=== PATIENT | male | born 1960 | race African-American/Black ===

== ENCOUNTER 2017-04-06 16:27 | Inpatient (IN) | payer MEDICAID ==
[~2017-04-06] VITALS: Ht 172.7 cm; Wt 94.3 kg
[2017-04-06] VITALS (7 sets, daily range): BP systolic 128–178; BP diastolic 83–96
[~2017-04-06 16:27] MED LIST: ABILIFY10 MG ORAL; BENADRYL25 MG ORAL; CARISOPRODOL350 MG ORAL; CARVEDILOL25 MG ORAL; DIOVAN160 MG ORAL; HYDROCODON-ACE1 EA13 ORAL; ISOSORBIDE MONO30 M1 PO; LISINOPRIL20 MG ORAL; LORATADINE10 M2 PO; OMEPRAZOLE20 M3 ORAL; RENAGEL400 MG ORAL; WARFARIN SODIUM5 MG ORAL; XANAX2 MG ORAL; ZOCOR20 M1 ORAL; ZOFRAN4 M3 ORAL
[2017-04-06] MEDS ORDERED: Albuterol ud Inhalation HHN ONE (16:30)
--- NOTE | 2017-04-06 16:40 | Emergency Room Report ---
History of Present Illness General Chief Complaint: Dyspnea/Respdistress Source: Patient Present Illness HPI 57YOM With 2 days of generalized body aches, cough with productive sputum, and fever and chills Missed dialysis yesterday because he said he changed his address Allergies: Coded Allergies: No Known Allergies (Unverified , 10/24/15) Patient History Past Medical History: renal disease, dialysis Past Surgical History: none Pertinent Family History: none Social History: Denies: smoking, alcohol use, drug use Immunizations: UTD Reviewed Nursing Documentation: PMH: Agreed, PSxH: Agreed Nursing Documentation-PMH Hx Cardiac Problems: Yes Hx Hypertension: Yes Hx Asthma: Yes Hx COPD: Yes Hx Diabetes: Yes Hx Cancer: No Hx Gastrointestinal Problems: Yes - Gall bladder stones Hx Dialysis: Yes Hx Neurological Problems: No Hx Seizures: Yes Review of Systems All Other Systems: negative except mentioned in HPI Physical Exam Vital Signs Date Time Temp Pulse Resp B/P (MAP) Pulse Ox O2 Delivery O2 Flow Rate FiO2 04/06/17 16:09 99.1 98 20 170/100 99 Non-Rebreather 15.0 Sp02 EP Interpretation: reviewed, normal General Appearance: normal inspection, well appearing, no apparent distress, alert, GCS 15, non-toxic Head: normocephalic, atraumatic Eyes: bilateral eye PERRL, bilateral eye EOMI ENT: normal ENT inspection, hearing grossly normal, normal pharynx, no angioedema, normal voice, TMs + canals normal, uvula midline, moist mucus membranes Neck: normal inspection, full range of motion, supple, thyroid normal, no meningismus, no bony tend Respiratory: normal inspection, lungs clear, normal breath sounds, no rhonchi, no respiratory distress, no retraction, no accessory muscle use, speaking full sentences, wheezing Cardiovascular #1: regular rate, rhythm, no edema, no JVD, normal capillary refill Gastrointestinal: normal inspection, normal bowel sounds, non tender, soft, no mass, no peritonitis, non-distended, no guarding, no hernia, no pulsatile mass Genitourinary: no CVA tenderness Musculoskeletal: normal inspection, back normal, normal range of motion, no calf tenderness, pelvis stable, India's Sign negative, other - Left arm: patent fistual with palpable thrill Neurologic: normal inspection, alert, oriented x3, responsive, chief deputy clerk/bailiff III-XII nml as tested, motor strength/tone normal, cerebellar normal, normal gait, speech normal Psychiatric: normal inspection, judgement/insight normal, mood/affect normal, no suicidal/homicidal ideation, no delusions Skin: normal inspection, normal color, no rash Lymphatic: normal inspection, no adenopathy Medical Decision Making Diagnostic Impression: Primary Impression: Dyspnea Qualified Codes: R06.00 - Dyspnea, unspecified Additional Impressions: CKD (chronic kidney disease) Qualified Codes: N18.6 - End stage renal disease; Z99.2 - Dependence on renal dialysis URI (upper respiratory infection) Qualified Codes: J06.9 - Acute upper respiratory infection, unspecified; B97.89 - Other viral agents as the cause of diseases classified elsewhere Acute bronchitis Qualified Codes: J20.9 - Acute bronchitis, unspecified ER Course 51-year-old male with wheezing on exam, myalgias, and productive cough Patient high-risk for flu given renal disease and dialysis Was given Tamiflu oral in the ER Influenza swab result still pending Labs significant for no leukocytosis, stable H&H, creatinine is 12 however potassium is normal. Elevated BNP in setting of CKD Troponin also elevated, likely d/t CKD and not ischemia ECG does show isolated TWI in V6 with depression - will need serial Trop by hospitalist CXR no obvious PNA when compared to previous Likely Bronchitis, needs dialysis but not urgently. Previous serumCr was ~12 as well Endorsed to Dr Monroe as prior admitting physician Tele admit, 810pm EKG Diagnostic Results Rate: tachycardiac Rhythm: NSR ST Segments: other - Isolated TWI and ST depression in V6 Rhythm Strip Diag. Results EP Interpretation: yes Rate: 104 Rhythm: NSR, no PVC's Chest X-Ray Diagnostic Results Chest X-Ray Diagnostic Results : Chest X-Ray Ordered: Yes # of Views/Limited/Complete: 1 View Indication: Shortness of Breath EP Interpretation: Yes Interpretation: no consolidation, no effusion, no pneumothorax, no acute cardiopulmonary disease Last Vital Signs Date Time Temp Pulse Resp B/P (MAP) Pulse Ox O2 Delivery O2 Flow Rate FiO2 04/06/17 16:09 99.1 98 20 170/100 99 Non-Rebreather 15.0 Status: improved Disposition: ADMITTED INPATIENT Condition: Serious RAMAKRISHNA GOOD M.D. Apr 06, 2017 16:40
[2017-04-06] MEDS: Oseltamivir 75mg cap ORAL SCH ×4 (16:48→19:34)
[2017-04-06] MEDS ORDERED: Tylenol #3 tab (300mg/30mg) ORAL ONE (17:00)
[2017-04-06] MEDS ORDERED: FOLIC ACID1 MG ORAL (17:10)
[2017-04-06] MEDS ORDERED: MIRALAX17 G2 ORAL (17:10)
[2017-04-06] MEDS ORDERED: ASPIR 8181 MG ORAL (17:10)
[2017-04-06] MEDS ORDERED: ALBUTEROL2.5 MG/3 M INH (17:10)
[2017-04-06] MEDS ORDERED: MULTIVITAMINS1 EAC2 ORAL (17:10)
[2017-04-06] MEDS ORDERED: SPIRIVA18 MCG INH (17:10)
[2017-04-06] MEDS ORDERED: BUPROPION HCL75 MG PO (17:10)
[2017-04-06 17:23] LABS: BASOPHILS % (AUTO) 1.3 % (0.0-2.0); EOSINOPHILS % (AUTO) 6.3 % (0.0-3.0); HEMATOCRIT 32.5 % (42.0-52.0); HEMOGLOBIN 9.7 G/DL (14.2-18.0); LYMPHOCYTES % (AUTO) 16.4 % (20.0-45.0); MEAN CORPUSCULAR VOLUME 96 FL (80-99); MONOCYTES % (AUTO) 10.5 % (1.0-10.0); NEUTROPHILS % (AUTO) 65.6 % (45.0-75.0); PLATELET COUNT 143 K/UL (150-450); RED BLOOD COUNT 3.38 M/UL (4.70-6.10); RED CELL DISTRIBUTION WIDTH 17.8 % (11.6-14.8); WHITE BLOOD COUNT 8.4 K/UL (4.8-10.8)
[2017-04-06 17:26] LABS: ANION GAP 12 mmol/L (5-15); BLOOD UREA NITROGEN 52 mg/dL (7-18); CALCIUM 7.8 MG/DL (8.5-10.1); CARBON DIOXIDE 24 MMOL/L (21-32); CHLORIDE 105 MMOL/L (98-107); CREATININE 12.5 MG/DL (0.55-1.30); POTASSIUM 4.9 MMOL/L (3.5-5.1); SODIUM 141 MMOL/L (136-145)
[2017-04-06 17:39] LABS: ALANINE AMINOTRANSFERASE 29 U/L (12-78); ALBUMIN 3.6 G/DL (3.4-5.0); ALBUMIN/GLOBULIN RATIO 0.9 (1.0-2.7); ALKALINE PHOSPHATASE 214 U/L (46-116); ASPARTATE AMINO TRANSFERASE 25 U/L (15-37); BILIRUBIN,TOTAL 0.5 MG/DL (0.2-1.0); CKMB 3.9 NG/ML (0.0-3.6); CREATINE KINASE 158 U/L (26-308)
[2017-04-06] MEDS ORDERED: AMLODIPINE BESY10 MG ORAL (21:53)
[2017-04-06] MEDS ORDERED: Albuterol ud Inhalation HHN PRN (22:15)
[2017-04-06] MEDS: Norco 5mg/325mg tab ORAL PRN (22:56)
[2017-04-06] MEDS ORDERED: ALPRAZolam 0.5mg tab ORAL PRN (23:15)
[2017-04-07] VITALS (9 sets, daily range): BP systolic 103–186; BP diastolic 75–122
[2017-04-07 05:38] LABS: BASOPHILS % (AUTO) 1.5 % (0.0-2.0); EOSINOPHILS % (AUTO) 5.6 % (0.0-3.0); HEMATOCRIT 29.3 % (42.0-52.0); HEMOGLOBIN 8.9 G/DL (14.2-18.0); MEAN CORPUSCULAR VOLUME 96 FL (80-99); MONOCYTES % (AUTO) 9.2 % (1.0-10.0); NEUTROPHILS % (AUTO) 70.8 % (45.0-75.0); PLATELET COUNT 123 K/UL (150-450); RED BLOOD COUNT 3.04 M/UL (4.70-6.10)
[2017-04-07 06:05] LABS: ANION GAP 14 mmol/L (5-15); BLOOD UREA NITROGEN 56 mg/dL (7-18); CALCIUM 7.8 MG/DL (8.5-10.1); CARBON DIOXIDE 20 MMOL/L (21-32); CHLORIDE 106 MMOL/L (98-107); CREATININE 13.4 MG/DL (0.55-1.30); POTASSIUM 5.6 MMOL/L (3.5-5.1); SODIUM 140 MMOL/L (136-145)
[2017-04-07] MEDS ORDERED: ALPRAZolam 0.5mg tab ORAL SCH (09:00)
[2017-04-07] MEDS: Carvedilol 25mg Tab ORAL SCH ×2 (09:00→18:04)
--- NOTE | 2017-04-07 09:52 | Diagnostic Imaging Report ---
Indication: Reason For Exam: SOB Technique: One view of the chest Comparison: 10/27/2015 Findings: The heart is enlarged. There is a left chest AICD now present, not evident previously. There is bilateral diffuse interstitial congestion. There is a small right-sided pleural effusion. Other than the AICD, findings are similar to the previous exam Impression: Cardiomegaly Findings compatible with congestive heart failure and small right pleural effusion. Interim AICD placement
[2017-04-07] MEDS: Renagel 400mg cap ORAL SCH ×3 (11:57→18:00)
[2017-04-07] MEDS: ARIPiprazole 10mg tab ORAL SCH (11:58)
[2017-04-07] MEDS: Aspirin EC 81mg tab ORAL SCH (11:58)
[2017-04-07] MEDS: Miralax 17gm pkt ORAL SCH (11:58)
[2017-04-07] MEDS: Heparin 5000 units/ml inj SUBQ SCH ×2 (12:00→20:30)
[2017-04-07] MEDS: Norco 5mg/325mg tab ORAL PRN ×2 (12:07→20:27)
[2017-04-07] MEDS ORDERED: Lidocaine 1% Plain 30 ml INJ ONE (12:38)
--- NOTE | 2017-04-07 13:02 | Consultation ---
Consult Note Consult Note asked to eval patient for dialysis management 57YOM With 2 days of generalized body aches, cough with productive sputum, and fever and chills Missed dialysis yesterday because he said he changed his address Past Medical History: renal disease, dialysis Hx Cardiac Problems: Yes Hx Hypertension: Yes Hx Asthma: Yes Hx COPD: Yes Hx Diabetes: Yes Hx Gastrointestinal Problems: Yes - Gall bladder stones Hx Dialysis: Yes Hx Seizures: Yes Assessment/Plan Dyspnea, Volume overload ESRD on HD , missed dialysis due to transportation issues URI (upper respiratory infection) Acute bronchitis Plan : HD sherry , with UF vial right fistula: in process PATIENT STATED THAT DR HAYES IS 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
--- NOTE | 2017-04-07 13:17 | Cardiac Electrophysiology PN ---
Subjective Subjective [id number] Objective Last 24 Hour Vital Signs Date Time Temp Pulse Resp B/P (MAP) Pulse Ox O2 Delivery O2 Flow Rate FiO2 04/07/17 12:00 98.2 97 19 103/75 85 04/07/17 09:58 88 26 97 Full Face 40 04/07/17 09:46 Nasal Cannula 2.0 28 04/07/17 09:46 94 Nasal Cannula 2.0 28 04/07/17 08:00 98.8 98 24 158/102 95 Bi-pap 40 04/07/17 08:00 90 04/07/17 07:50 96 24 167/108 96 Bi-pap 40 04/07/17 05:08 97 26 99 Full Face 40 04/07/17 04:00 86 20 172/107 94 Bi-pap 40 04/07/17 04:00 111 04/07/17 03:42 97 23 98 Full Face 40 04/07/17 03:00 115 26 162/112 96 Bi-pap 40 04/07/17 02:31 104 24 99 Nasal Cannula 2.0 28 04/07/17 02:30 98 24 97 Nasal Cannula 2.0 28 04/07/17 02:30 98 24 Nasal Cannula 2.0 28 04/07/17 02:10 97.7 123 30 186/122 93 Nasal Cannula 4.0 04/07/17 00:00 118 04/07/17 00:00 99.7 125 24 154/97 97 04/06/17 22:52 92 Nasal Cannula 2.0 28 04/06/17 22:52 Nasal Cannula 2.0 28 04/06/17 22:52 100 24 Nasal Cannula 2.0 28 04/06/17 21:30 98.1 99 21 177/93 90 04/06/17 21:30 98.1 99 21 177/93 90 Nasal Cannula 2.0 04/06/17 20:50 98.5 92 18 152/87 99 Nasal Cannula 2.0 04/06/17 19:50 98.6 94 18 163/87 96 Nasal Cannula 2.0 04/06/17 18:46 99.7 22 170/96 94 Nasal Cannula 2.0 04/06/17 18:01 99.1 04/06/17 17:00 100 22 Nasal Cannula 2.0 04/06/17 17:00 99.1 22 178/96 94 Nasal Cannula 2.0 04/06/17 16:50 100 22 94 Nasal Cannula 2.0 04/06/17 16:36 101 24 85 Room Air 04/06/17 16:32 101 22 Room Air 04/06/17 16:09 99.1 98 20 170/100 99 Non-Rebreather 15.0 Intake and Output 04/06/17 04/07/17 19:00 07:00 Intake Total 0 ml 100 ml Balance 0 ml 100 ml Intake Oral 0 ml 100 ml Laboratory Tests Test 04/06/17 16:53 04/07/17 04:00 White Blood Count 8.4 K/UL (4.8-10.8) 9.0 K/UL (4.8-10.8) Red Blood Count 3.38 M/UL (4.70-6.10) L 3.04 M/UL (4.70-6.10) L Hemoglobin 9.7 G/DL (14.2-18.0) L 8.9 G/DL (14.2-18.0) L Hematocrit 32.5 % (42.0-52.0) L 29.3 % (42.0-52.0) L Mean Corpuscular Volume 96 FL (80-99) 96 FL (80-99) Mean Corpuscular Hemoglobin 28.7 PG (27.0-31.0) 29.2 PG (27.0-31.0) Mean Corpuscular Hemoglobin Concent 29.8 G/DL (32.0-36.0) L 30.4 G/DL (32.0-36.0) L Red Cell Distribution Width 17.8 % (11.6-14.8) H 18.0 % (11.6-14.8) H Platelet Count 143 K/UL (150-450) L 123 K/UL (150-450) L Mean Platelet Volume 6.4 FL (6.5-10.1) L 6.5 FL (6.5-10.1) Neutrophils (%) (Auto) 65.6 % (45.0-75.0) 70.8 % (45.0-75.0) Lymphocytes (%) (Auto) 16.4 % (20.0-45.0) L 13.0 % (20.0-45.0) L Monocytes (%) (Auto) 10.5 % (1.0-10.0) H 9.2 % (1.0-10.0) Eosinophils (%) (Auto) 6.3 % (0.0-3.0) H 5.6 % (0.0-3.0) H Basophils (%) (Auto) 1.3 % (0.0-2.0) 1.5 % (0.0-2.0) Sodium Level 141 MMOL/L (136-145) 140 MMOL/L (136-145) Potassium Level 4.9 MMOL/L (3.5-5.1) 5.6 MMOL/L (3.5-5.1) H Chloride Level 105 MMOL/L (98-107) 106 MMOL/L (98-107) Carbon Dioxide Level 24 MMOL/L (21-32) 20 MMOL/L (21-32) L Anion Gap 12 mmol/L (5-15) 14 mmol/L (5-15) Blood Urea Nitrogen 52 mg/dL (7-18) H 56 mg/dL (7-18) H Creatinine 12.5 MG/DL (0.55-1.30) H 13.4 MG/DL (0.55-1.30) H Estimat Glomerular Filtration Rate 5.1 mL/min (>60) 4.6 mL/min (>60) Glucose Level 114 MG/DL (74-106) H 74 MG/DL (74-106) Calcium Level 7.8 MG/DL (8.5-10.1) L 7.8 MG/DL (8.5-10.1) L Total Bilirubin 0.5 MG/DL (0.2-1.0) Aspartate Amino Transf (AST/SGOT) 25 U/L (15-37) Alanine Aminotransferase (ALT/SGPT) 29 U/L (12-78) Alkaline Phosphatase 214 U/L (46-116) H Total Creatine Kinase 158 U/L (26-308) Creatine Kinase MB 3.9 NG/ML (0.0-3.6) H Creatine Kinase MB Relative Index 2.4 Troponin I 0.196 ng/mL (0.000-0.056) Pro-B-Type Natriuretic Peptide > 63026 pg/mL (0-125) H Total Protein 7.8 G/DL (6.4-8.2) Albumin 3.6 G/DL (3.4-5.0) Globulin 4.2 g/dL Albumin/Globulin Ratio 0.9 (1.0-2.7) L Microbiology Date/Time Source Procedure Growth Status 04/06/17 20:10 Nasal Nares Influenza Types A,B Antigen (RELL) - Final Complete JERO GUEVARA Apr 07, 2017 13:17
[2017-04-07] MEDS ORDERED: NS 500ML ONE (16:34)
[2017-04-07] MEDS: HydrALAZINE 10mg Tab ORAL SCH ×2 (17:59→23:08)
--- NOTE | 2017-04-07 20:08 | General Progress Note ---
Assessment/Plan Problem List: (1) Anemia ICD Codes: D64.9 - Anemia, unspecified SNOMED: 315657295 (2) Acute bronchitis ICD Codes: J20.9 - Acute bronchitis, unspecified SNOMED: 61729270 Qualifiers: Qualified Codes: J20.9 - Acute bronchitis, unspecified (3) CKD (chronic kidney disease) ICD Codes: N18.9 - Chronic kidney disease, unspecified SNOMED: 975393161 Qualifiers: Qualified Codes: N18.6 - End stage renal disease; Z99.2 - Dependence on renal dialysis (4) Shortness of breath ICD Codes: R06.02 - Shortness of breath SNOMED: 582301329 (5) Dyspnea ICD Codes: R06.00 - Dyspnea, unspecified SNOMED: 091941733 Qualifiers: Qualified Codes: R06.00 - Dyspnea, unspecified (6) ESRD (end stage renal disease) on dialysis ICD Codes: N18.6 - End stage renal disease; Z99.2 - Dependence on renal dialysis SNOMED: 578446626 Status: progressing Assessment/Plan sob bronchitis esrd on hd missed hd chf non compliant Subjective ROS Limited/Unobtainable: Yes Constitutional: Reports: no symptoms Allergies: Coded Allergies: No Known Allergies (Unverified , 10/24/15) Objective Last 24 Hour Vital Signs Date Time Temp Pulse Resp B/P (MAP) Pulse Ox O2 Delivery O2 Flow Rate FiO2 04/07/17 19:44 92 Nasal Cannula 2.0 28 04/07/17 19:44 Nasal Cannula 2.0 28 04/07/17 18:04 96 171/95 04/07/17 17:59 171/95 04/07/17 16:00 94 04/07/17 15:30 Nasal Cannula 5.0 40 04/07/17 15:30 Nasal Cannula 5.0 04/07/17 15:30 98.0 85 20 165/97 Nasal Cannula 5.0 04/07/17 13:06 98.8 04/07/17 12:00 98.2 97 19 103/75 85 04/07/17 12:00 Nasal Cannula 5.0 04/07/17 12:00 92 04/07/17 12:00 98.4 99 20 174/115 Room Air 04/07/17 09:58 88 26 97 Full Face 40 04/07/17 09:46 Nasal Cannula 2.0 28 04/07/17 09:46 94 Nasal Cannula 2.0 28 04/07/17 08:00 98.8 98 24 158/102 95 Bi-pap 40 04/07/17 08:00 90 04/07/17 07:50 96 24 167/108 96 Bi-pap 40 04/07/17 05:08 97 26 99 Full Face 40 04/07/17 04:00 86 20 172/107 94 Bi-pap 40 04/07/17 04:00 111 04/07/17 03:42 97 23 98 Full Face 40 04/07/17 03:00 115 26 162/112 96 Bi-pap 40 04/07/17 02:31 104 24 99 Nasal Cannula 2.0 28 04/07/17 02:30 98 24 97 Nasal Cannula 2.0 28 04/07/17 02:30 98 24 Nasal Cannula 2.0 28 04/07/17 02:10 97.7 123 30 186/122 93 Nasal Cannula 4.0 04/07/17 00:00 118 04/07/17 00:00 99.7 125 24 154/97 97 04/06/17 22:52 92 Nasal Cannula 2.0 28 04/06/17 22:52 Nasal Cannula 2.0 28 04/06/17 22:52 100 24 Nasal Cannula 2.0 28 04/06/17 21:30 98.1 99 21 177/93 90 04/06/17 21:30 98.1 99 21 177/93 90 Nasal Cannula 2.0 04/06/17 20:50 98.5 92 18 152/87 99 Nasal Cannula 2.0 Intake and Output 04/06/17 04/07/17 19:00 07:00 Intake Total 0 ml 100 ml Balance 0 ml 100 ml Intake Oral 0 ml 100 ml Laboratory Tests 04/07/17 04:00: White Blood Count 9.0, Red Blood Count 3.04L, Hemoglobin 8.9L, Hematocrit 29.3L , Mean Corpuscular Volume 96, Mean Corpuscular Hemoglobin 29.2, Mean Corpuscular Hemoglobin Concent 30.4L, Red Cell Distribution Width 18.0H, Platelet Count 123L, Mean Platelet Volume 6.5, Neutrophils (%) (Auto) 70.8, Lymphocytes (%) (Auto) 13.0L, Monocytes (%) (Auto) 9.2, Eosinophils (%) (Auto) 5.6H, Basophils (%) (Auto) 1.5, Sodium Level 140, Potassium Level 5.6H, Chloride Level 106, Carbon Dioxide Level 20L, Anion Gap 14, Blood Urea Nitrogen 56H, Creatinine 13.4H, Estimat Glomerular Filtration Rate 4.6, Glucose Level 74 , Calcium Level 7.8L Height (Feet): 5 Height (Inches): 8.00 Weight (Pounds): 205 EENT: PERRL/EOMI Cardiovascular: normal rate Respiratory/Chest: lungs clear Conrad Chopra MD Apr 07, 2017 20:08
[2017-04-07] MEDS: Atorvastatin 80mg tab ORAL SCH (20:26)
--- NOTE | 2017-04-07 20:37 | History & Physical ---
History and Physical History & Physicial Job ID [id number] Irving Parker Apr 07, 2017 20:37
[2017-04-07 21:38] LABS: BILIRUBIN,TOTAL 0.7 MG/DL (0.2-1.0)
--- NOTE | 2017-04-07 21:42 | Consultation ---
Consult Note Assessment/Plan #[id number] respiratory failure volume ol hd hypoemia small pleural effusion chf obesity RADHA ARIZA DO Apr 07, 2017 21:42
--- NOTE | 2017-04-07 23:00 | Consultation ---
DATE OF CONSULTATION: 04/07/2017 PULMONARY CRITICAL CARE CONSULTATION CONSULTING PHYSICIAN: Chika Steinberg D.O. REASON FOR ADMISSION: Shortness of breath. HISTORY OF PRESENT ILLNESS: This is a 57-year-old gentleman who has renal failure, dialysis dependent, missed his dialysis on Friday because he says he had difficulty getting to the facility. He has also had cough, generalized body aches, shortness of breath, fevers, chills, and phlegm production. He was seen in the emergency room, concerned for decompensated respiratory status, was placed on BiPAP, but he maintained for overnight, currently is off BiPAP on nasal cannula, comfortable, feeling less short of breath. He has had dialysis today. No nausea or vomiting. No fevers or chills. No hemoptysis, hematochezia, melena, or hematuria. PAST MEDICAL HISTORY: Coronary artery disease; hypertension; COPD; diabetes; GERD; gallstones; renal failure, on dialysis; and seizure disorder. CURRENT MEDICATIONS: Pre-hospital and current medications reviewed, reconciled, documented in the electronic medical record by dose, frequency, and route. ALLERGIES: He has no known drug allergies. SOCIAL HISTORY: Positive for tobacco, but no alcohol or drugs. FAMILY HISTORY: Noncontributory. REVIEW OF SYSTEMS: As previously noted. PHYSICAL EXAMINATION: GENERAL/VITAL SIGNS: At the time of my exam, he is alert and oriented with low-grade temperature of 99 degrees, blood pressure 157/89, pulse is 80, respirations are 18, and he is 98% on 2 liters nasal cannula. HEENT: Normocephalic and atraumatic. Oropharynx is moist. Mucous membranes are moist. NECK: Supple without lymphadenopathy or thyromegaly. LUNGS: Decreased at bases with scant crackles. No wheezes present. HEART: Regular rate and rhythm without murmur. ABDOMEN: Soft and nontender. Positive bowel sounds. EXTREMITIES: No edema. NEUROLOGIC: No focal neurologic deficits. Cranial nerves II through XII intact. No skin rashes. No lesions present. LABORATORY AND DIAGNOSTIC DATA: His white count 9, hemoglobin 8.9, and platelets are 123. His sodium is 140, potassium 5.6, chloride 106, bicarbonate 20, BUN 56, creatinine 13.4, glucose is 74. SECURITY ORDERLY is elevated at 35,000. First troponin was 0.196. Chest x-ray was performed in the emergency room with congestive heart failure and a small right pleural effusion. Influenza A was performed with MB is negative. ASSESSMENT AND PLAN: Respiratory distress and decompensation due to volume overload and congestive heart failure decompensation in a renal failure patient with missed dialysis session, hypertension, hyperlipidemia, obesity, psychiatric disorder, gastroesophageal reflux disease, chronic obstructive pulmonary disease and underlying coronary disease. PLAN FOR THE PATIENT: No evidence of overt infection, currently not on antibiotics. We will monitor blood, urine, and sputum cultures that were drawn in the emergency room. Negative inputs and outputs with dialysis. Nebulizer treatments as ordered. O2 to maintain saturations greater than 92%, BiPAP should be used at night as needed for shortness of breath. The patient also to resume his pre-hospital medications and we will continue to follow the patient for the remainder of his hospital stay. Chika Steinberg D.O. DR: RENATA JOB#: [id number] CC:
--- NOTE | 2017-04-07 23:30 | History and Physical Report ---
DATE OF ADMISSION: 04/06/2017 REASON FOR ADMISSION: Shortness of breath, missed dialysis. IDENTIFICATION: The patient is a pleasant 57-year-old male with past medical history which is significant for end-stage renal disease on hemodialysis, hypertension, asthma, COPD, diabetes mellitus, gallstones history, has missed hemodialysis and noted to be volume overloaded and found to have acute respiratory infection. Chest x-ray was completed, the patient noted to have findings compatible with congestive heart failure, hypoperfusion, cardiomegaly. I consulted Cardiology, Dr. Marin Jones, who evaluated the patient for further care. PAST MEDICAL HISTORY: As noted above. PAST SURGICAL HISTORY: None noted. SOCIAL HISTORY: No alcohol, tobacco, or illicit drug use. ALLERGIES: No known drug allergies. REVIEW OF SYSTEMS: A 12-point review of systems otherwise negative. PHYSICAL EXAMINATION: GENERAL: No acute distress. VITAL SIGNS: Reviewed. PULMONARY: Decreased breath sounds. CARDIOVASCULAR: Regular rate. No S3 or S4. ABDOMEN: Soft, nontender, and nondistended. EXTREMITIES: A 1+ edema. LABORATORY AND DIAGNOSTIC DATA: WBC 9, hemoglobin 8.9, hematocrit 29, platelet count 122,000. BUN of 56, creatinine . BNP is . ASSESSMENT AND RECOMMENDATIONS: 1. Shortness of breath is related to underlying cardiomegaly as well as fluid overload with missed dialysis. I have consulted Nephrology service to see the patient in regard to restarting dialysis. The patient to restart dialysis. 2. Anemia secondary to chronic disease. Continue to closely monitor. Obtain anemia workup. 3. Generalized body ache related to fluid overload. 4. End-stage renal disease, on hemodialysis. 5. Tachycardia, to be seen by Cardiology Service, isolated T-wave and ST-segment depression in V6. 6. Elevated BNP, potentially related to underlying CKD. 7. Troponin elevated, again CKD related potentially, to evaluate with Cardiology Service. 8. I appreciate sec reporting consultant care. 9. At this time, we will follow as well as Hematology. Irving Parker M.D. DR: Bryanna JOB#: [id number] CC:
[2017-04-08 00:24] VITALS: BP 158/90
[2017-04-08 04:00] VITALS: BP 149/85
[2017-04-08 04:54] LABS: BASOPHILS % (AUTO) 2.2 % (0.0-2.0); EOSINOPHILS % (AUTO) 5.5 % (0.0-3.0); HEMATOCRIT 29.2 % (42.0-52.0); HEMOGLOBIN 8.8 G/DL (14.2-18.0); LYMPHOCYTES % (AUTO) 12.7 % (20.0-45.0); MEAN CORPUSCULAR VOLUME 97 FL (80-99); MONOCYTES % (AUTO) 9.6 % (1.0-10.0); NEUTROPHILS % (AUTO) 69.9 % (45.0-75.0); PLATELET COUNT 122 K/UL (150-450); RED BLOOD COUNT 3.01 M/UL (4.70-6.10); WHITE BLOOD COUNT 8.2 K/UL (4.8-10.8)
[2017-04-08 05:29] LABS: ANION GAP 19 mmol/L (5-15); BLOOD UREA NITROGEN 58 mg/dL (7-18); CALCIUM 7.7 MG/DL (8.5-10.1); CARBON DIOXIDE 16 MMOL/L (21-32); CHLORIDE 104 MMOL/L (98-107); CREATININE 13.6 MG/DL (0.55-1.30); POTASSIUM 5.8 MMOL/L (3.5-5.1); SODIUM 139 MMOL/L (136-145)
[2017-04-08] MEDS: HydrALAZINE 10mg Tab ORAL SCH ×3 (05:51→18:20)
[2017-04-08 08:00] VITALS: BP 153/98
[2017-04-08] MEDS: Miralax 17gm pkt ORAL SCH (08:08)
[2017-04-08] MEDS: Heparin 5000 units/ml inj SUBQ SCH ×2 (08:27→21:00)
[2017-04-08] MEDS: Carvedilol 25mg Tab ORAL SCH (08:38)
[2017-04-08] MEDS: Renagel 400mg cap ORAL SCH ×3 (08:38→18:20)
[2017-04-08] MEDS: ARIPiprazole 10mg tab ORAL SCH (08:39)
[2017-04-08] MEDS: Aspirin EC 81mg tab ORAL SCH (08:39)
[2017-04-08] MEDS ORDERED: Imdur 30mg tab ORAL SCH (09:00)
--- NOTE | 2017-04-08 09:30 | Consultation ---
DATE OF CONSULTATION: 04/07/2017 CARDIOLOGY CONSULTATION REASON FOR CONSULTATION: Management of congestive heart failure and hypertension as well as evaluation of the patient's defibrillator. HISTORY OF PRESENT ILLNESS: The patient is a 57-year-old -Spanish gentleman who I am quite familiar from multiple hospitalizations at [facility] as well as [facility] with the most recent one in February 2017. The patient has a history of hypertension and a new Biotronik defibrillator implantation on the left side as well as cardiomyopathy with ejection fraction of 40% as well as paroxysmal atrial fibrillation. The patient also has hepatitis B and hepatitis C and he has end-stage renal disease, on hemodialysis. The patient also has a history of depression and schizophrenia. The patient presented to the emergency room with two days of generalized body ache and cough productive of phlegm, fever and chills. The patient has also missed his dialysis. The patient subsequently was transferred to step-down after rapid response from volume overload. Upon my evaluation, the patient is feeling better. Denies any chest pain or shortness of breath and is getting hemodialysis. REVIEW OF SYSTEMS: Negative other than what was mentioned in the history of present illness. PAST MEDICAL HISTORY: Includes: 1. Hypertension. 2. Biotronik defibrillator implantation. 3. Cardiomyopathy. 4. Paroxysmal atrial fibrillation. 5. Hepatitis B. 6. Hepatitis C. 7. Depression. 8. End-stage renal disease, on hemodialysis under the management of Dr. Sampson. SOCIAL HISTORY: Does not smoke or drink alcohol. FAMILY HISTORY: Noncontributory. PHYSICAL EXAMINATION: VITAL SIGNS: Blood pressure is 103/75, pulse 92, respirations 18, and he is afebrile. HEAD AND NECK: Shows no JVD. LUNGS: Decreased breath sounds. CARDIOVASCULAR: Shows regular S1 and S2 with no gallop or murmur. Defibrillator in the left subclavian. ABDOMEN: Soft. EXTREMITIES: A 1+ pitting edema. LABORATORY DATA: His labs show white count of 9, hemoglobin 8.9, hematocrit 29.3, and platelet count is 123. Sodium is 140, potassium is 5.6, BUN of 33, creatinine , and glucose 174. Troponin 0.196. BNP is more than 35,000. ASSESSMENT AND PLAN: 1. Troponin leak, this is likely due to the patient's renal failure. The patient does not have any chest pain and he had troponin elevation while he was also at [facility]. We will continue to treat him medically. 2. Accelerated hypertension. He is on Norvasc 10 mg daily, Coreg 25 mg b.i.d. He is on hemodialysis. Imdur 30 mg daily t.i.d., but we will hold at this time. 3. Status post Biotronik defibrillator implantation, normal function. 4. Cardiomyopathy with ejection fraction of 40%. Continue Coreg and hemodialysis. 5. Paroxysmal atrial fibrillation, in sinus rhythm on . 6. Hepatitis B and hepatitis C. 7. End-stage renal disease, on hemodialysis. 8. Depression and schizophrenia. Thank you very much for allowing me to participate in the care of this patient. Please do not hesitate to contact me for any questions regarding my evaluation. Marin Jones M.D. DR: Salazar JOB#: [id number] CC:
--- NOTE | 2017-04-08 10:19 | Nephrology Progress Note ---
Assessment/Plan Plan CHF + COPD. Needs more UF/HD today! Subjective Neurologic/Psychiatric: Denies: no symptoms, anxiety, depressed, emotional problems, headache, numbness, paresthesia, pre-existing deficit, seizure, tingling, tremors, weakness, other Subjective Care assumed from others due to patient's request. Still SOB. Objective Objective Last 24 Hour Vital Signs Date Time Temp Pulse Resp B/P (MAP) Pulse Ox O2 Delivery O2 Flow Rate FiO2 04/08/17 09:10 79 17 99 Full Face 45 04/08/17 08:39 153/98 04/08/17 08:39 78 153/98 04/08/17 08:38 78 153/98 04/08/17 08:00 79 04/08/17 08:00 97.2 78 20 153/98 98 Bi-pap 40 04/08/17 07:17 88 18 93 Full Face 45 04/08/17 07:16 Bi-pap 45 04/08/17 07:16 93 Bi-pap 45 04/08/17 05:51 149/85 04/08/17 04:00 20 98 Nasal Cannula 4.0 04/08/17 04:00 91 04/08/17 04:00 98.9 70 20 149/85 98 04/08/17 00:24 99.1 72 19 158/90 98 04/08/17 00:10 18 98 Nasal Cannula 4.0 04/07/17 23:43 77 04/07/17 23:08 157/89 04/07/17 20:51 99.0 80 18 157/89 98 04/07/17 20:10 18 98 Nasal Cannula 4.0 04/07/17 20:00 79 04/07/17 19:44 92 Nasal Cannula 2.0 28 04/07/17 19:44 Nasal Cannula 2.0 28 04/07/17 18:04 96 171/95 04/07/17 17:59 171/95 04/07/17 16:00 94 04/07/17 15:30 Nasal Cannula 5.0 40 04/07/17 15:30 Nasal Cannula 5.0 04/07/17 15:30 98.0 85 20 165/97 Nasal Cannula 5.0 04/07/17 13:06 98.8 04/07/17 12:00 98.2 97 19 103/75 85 04/07/17 12:00 Nasal Cannula 5.0 04/07/17 12:00 92 04/07/17 12:00 98.4 99 20 174/115 Room Air Intake and Output 04/07/17 04/08/17 19:00 07:00 Intake Total 100 ml Output Total 3000 ml Balance -3000 ml 100 ml Intake Oral 100 ml Output Hemodialysis UF 3000 ml # Voids 1 # Bowel Movements 2 Laboratory Tests 04/07/17 20:50: Reticulocyte Count 3.0H, Hemoglobin A [Pending], Hemoglobin A2 [Pending], Hemoglobin C [Pending], Hemoglobin F () [Pending], Hemoglobin S [Pending], Variant Hemoglobin [Pending], Hemoglobin Electrophoresis Interp [Pending], Hemoglobin Interpretation [Pending], Hemoglobin Solubility [Pending], Fibrinogen 331, Ferritin 194, Total Bilirubin 0.7, Lactate Dehydrogenase 270H, Vitamin B12 Level 675, Folate 9.8 04/08/17 03:40: White Blood Count 8.2, Red Blood Count 3.01L, Hemoglobin 8.8L, Hematocrit 29.2L , Mean Corpuscular Volume 97, Mean Corpuscular Hemoglobin 29.4, Mean Corpuscular Hemoglobin Concent 30.3L, Red Cell Distribution Width 18.0H, Platelet Count 122L, Mean Platelet Volume 6.5, Neutrophils (%) (Auto) 69.9, Lymphocytes (%) (Auto) 12.7L, Monocytes (%) (Auto) 9.6, Eosinophils (%) (Auto) 5.5H, Basophils (%) (Auto) 2.2H, Sodium Level 139, Potassium Level 5.8H, Chloride Level 104, Carbon Dioxide Level 16L, Anion Gap 19H, Blood Urea Nitrogen 58H, Creatinine 13.6H, Estimat Glomerular Filtration Rate 4.6, Glucose Level 64L, Calcium Level 7.7L Height (Feet): 5 Height (Inches): 8.00 Weight (Pounds): 205 Objective On BIPAP. CV RR Lungs B Wheezes. Abd SNT. BS + E ++ edema MAGALIE RANDLE Apr 08, 2017 10:19
[2017-04-08 12:00] VITALS: BP 129/88
--- NOTE | 2017-04-08 12:10 | Cardiac Electrophysiology PN ---
Assessment/Plan Assessment/Plan 1. Troponin leak, likely due to renal failure. The patient does not have any chest pain and he had troponin elevation while he was also at [facility]. 2. Accelerated hypertension. He is on Norvasc 10 mg daily, Coreg 25 mg b.i.d. Imdur 30 mg daily and Hydralazine 3. Status post Biotronik defibrillator implantation, normal function. 4. Cardiomyopathy with ejection fraction of 40%. Continue Coreg and hemodialysis. 5. Paroxysmal atrial fibrillation, in sinus rhythm on 6. Hepatitis B and hepatitis C. 7. End-stage renal disease, on hemodialysis. 8. Depression and schizophrenia. Subjective Subjective Feeling better. No chest pain or SOB. Objective Last 24 Hour Vital Signs Date Time Temp Pulse Resp B/P (MAP) Pulse Ox O2 Delivery O2 Flow Rate FiO2 04/08/17 09:10 79 17 99 Full Face 45 04/08/17 08:39 153/98 04/08/17 08:39 78 153/98 04/08/17 08:38 78 153/98 04/08/17 08:00 79 04/08/17 08:00 97.2 78 20 153/98 98 Bi-pap 40 04/08/17 07:17 88 18 93 Full Face 45 04/08/17 07:16 Bi-pap 45 04/08/17 07:16 93 Bi-pap 45 04/08/17 05:51 149/85 04/08/17 04:00 20 98 Nasal Cannula 4.0 04/08/17 04:00 91 04/08/17 04:00 98.9 70 20 149/85 98 04/08/17 00:24 99.1 72 19 158/90 98 04/08/17 00:10 18 98 Nasal Cannula 4.0 04/07/17 23:43 77 04/07/17 23:08 157/89 04/07/17 20:51 99.0 80 18 157/89 98 04/07/17 20:10 18 98 Nasal Cannula 4.0 04/07/17 20:00 79 04/07/17 19:44 92 Nasal Cannula 2.0 28 04/07/17 19:44 Nasal Cannula 2.0 28 04/07/17 18:04 96 171/95 04/07/17 17:59 171/95 04/07/17 16:00 94 04/07/17 15:30 Nasal Cannula 5.0 40 04/07/17 15:30 Nasal Cannula 5.0 04/07/17 15:30 98.0 85 20 165/97 Nasal Cannula 5.0 04/07/17 13:06 98.8 Intake and Output 04/07/17 04/08/17 19:00 07:00 Intake Total 100 ml Output Total 3000 ml Balance -3000 ml 100 ml Intake Oral 100 ml Output Hemodialysis UF 3000 ml # Voids 1 # Bowel Movements 2 Laboratory Tests Test 04/07/17 20:50 04/08/17 03:40 Reticulocyte Count 3.0 % (0.0-2.0) H Hemoglobin A Pending Hemoglobin A2 Pending Hemoglobin C Pending Hemoglobin F () Pending Hemoglobin S Pending Variant Hemoglobin Pending Hemoglobin Electrophoresis Interp Pending Hemoglobin Interpretation Pending Hemoglobin Solubility Pending Fibrinogen 331 mg/dL (200-400) Ferritin 194 NG/ML (8-388) Total Bilirubin 0.7 MG/DL (0.2-1.0) Lactate Dehydrogenase 270 U/L (81-234) H Vitamin B12 Level 675 PG/ML (193-986) Folate 9.8 NG/ML (8.6-58.9) White Blood Count 8.2 K/UL (4.8-10.8) Red Blood Count 3.01 M/UL (4.70-6.10) L Hemoglobin 8.8 G/DL (14.2-18.0) L Hematocrit 29.2 % (42.0-52.0) L Mean Corpuscular Volume 97 FL (80-99) Mean Corpuscular Hemoglobin 29.4 PG (27.0-31.0) Mean Corpuscular Hemoglobin Concent 30.3 G/DL (32.0-36.0) L Red Cell Distribution Width 18.0 % (11.6-14.8) H Platelet Count 122 K/UL (150-450) L Mean Platelet Volume 6.5 FL (6.5-10.1) Neutrophils (%) (Auto) 69.9 % (45.0-75.0) Lymphocytes (%) (Auto) 12.7 % (20.0-45.0) L Monocytes (%) (Auto) 9.6 % (1.0-10.0) Eosinophils (%) (Auto) 5.5 % (0.0-3.0) H Basophils (%) (Auto) 2.2 % (0.0-2.0) H Sodium Level 139 MMOL/L (136-145) Potassium Level 5.8 MMOL/L (3.5-5.1) H Chloride Level 104 MMOL/L (98-107) Carbon Dioxide Level 16 MMOL/L (21-32) L Anion Gap 19 mmol/L (5-15) H Blood Urea Nitrogen 58 mg/dL (7-18) H Creatinine 13.6 MG/DL (0.55-1.30) H Estimat Glomerular Filtration Rate 4.6 mL/min (>60) Glucose Level 64 MG/DL (74-106) L Calcium Level 7.7 MG/DL (8.5-10.1) L Hepatitis A IgM Antibody Pending Hepatitis B Core IgM Antibody Pending Microbiology Date/Time Source Procedure Growth Status 04/06/17 20:10 Nasal Nares Influenza Types A,B Antigen (RELL) - Final Complete Objective HEAD AND NECK: Shows no JVD. LUNGS: Decreased breath sounds. CARDIOVASCULAR: Shows regular S1 and S2 with no gallop or murmur. Defibrillator in the left subclavian. ABDOMEN: Soft. EXTREMITIES: A 1+ pitting edema. JERO GUEVARA Apr 08, 2017 12:10
[2017-04-08] MEDS: Norco 5mg/325mg tab ORAL PRN ×2 (12:21→20:38)
--- NOTE | 2017-04-08 13:12 | Pulmonology Progress Note ---
Assessment/Plan Assessment/Plan respiratory failure volume overload ESRD hypoxemia small pleural effusion CHF obesity needs additional UF today jr w RN, she called Dr Sampson cannot dc BiPAP yet Subjective Respiratory: Reports: shortness of breath Allergies: Coded Allergies: No Known Allergies (Unverified , 10/24/15) Objective Last 24 Hour Vital Signs Date Time Temp Pulse Resp B/P (MAP) Pulse Ox O2 Delivery O2 Flow Rate FiO2 04/08/17 12:20 153/98 04/08/17 12:00 96.8 65 19 129/88 99 Bi-pap 40 04/08/17 12:00 67 04/08/17 09:10 79 17 99 Full Face 45 04/08/17 08:39 153/98 04/08/17 08:39 78 153/98 04/08/17 08:38 78 153/98 04/08/17 08:00 79 04/08/17 08:00 97.2 78 20 153/98 98 Bi-pap 40 04/08/17 07:17 88 18 93 Full Face 45 04/08/17 07:16 Bi-pap 45 04/08/17 07:16 93 Bi-pap 45 04/08/17 05:51 149/85 04/08/17 04:00 20 98 Nasal Cannula 4.0 04/08/17 04:00 91 04/08/17 04:00 98.9 70 20 149/85 98 04/08/17 00:24 99.1 72 19 158/90 98 04/08/17 00:10 18 98 Nasal Cannula 4.0 04/07/17 23:43 77 04/07/17 23:08 157/89 04/07/17 20:51 99.0 80 18 157/89 98 04/07/17 20:10 18 98 Nasal Cannula 4.0 04/07/17 20:00 79 04/07/17 19:44 92 Nasal Cannula 2.0 28 04/07/17 19:44 Nasal Cannula 2.0 28 04/07/17 18:04 96 171/95 04/07/17 17:59 171/95 04/07/17 16:00 94 04/07/17 15:30 Nasal Cannula 5.0 40 04/07/17 15:30 Nasal Cannula 5.0 04/07/17 15:30 98.0 85 20 165/97 Nasal Cannula 5.0 Intake and Output 04/07/17 04/08/17 19:00 07:00 Intake Total 100 ml Output Total 3000 ml Balance -3000 ml 100 ml Intake Oral 100 ml Output Hemodialysis UF 3000 ml # Voids 1 # Bowel Movements 2 Objective BiPAP General Appearance: no acute distress HEENT: normocephalic Respiratory/Chest: decreased breath sounds Cardiovascular: tachycardia Microbiology Date/Time Source Procedure Growth Status 04/06/17 20:10 Nasal Nares Influenza Types A,B Antigen (RELL) - Final Complete Laboratory Tests 04/07/17 20:50: Reticulocyte Count 3.0H, Hemoglobin A [Pending], Hemoglobin A2 [Pending], Hemoglobin C [Pending], Hemoglobin F () [Pending], Hemoglobin S [Pending], Variant Hemoglobin [Pending], Hemoglobin Electrophoresis Interp [Pending], Hemoglobin Interpretation [Pending], Hemoglobin Solubility [Pending], Fibrinogen 331, Ferritin 194, Total Bilirubin 0.7, Lactate Dehydrogenase 270H, Vitamin B12 Level 675, Folate 9.8 04/08/17 03:40: White Blood Count 8.2, Red Blood Count 3.01L, Hemoglobin 8.8L, Hematocrit 29.2L , Mean Corpuscular Volume 97, Mean Corpuscular Hemoglobin 29.4, Mean Corpuscular Hemoglobin Concent 30.3L, Red Cell Distribution Width 18.0H, Platelet Count 122L, Mean Platelet Volume 6.5, Neutrophils (%) (Auto) 69.9, Lymphocytes (%) (Auto) 12.7L, Monocytes (%) (Auto) 9.6, Eosinophils (%) (Auto) 5.5H, Basophils (%) (Auto) 2.2H, Sodium Level 139, Potassium Level 5.8H, Chloride Level 104, Carbon Dioxide Level 16L, Anion Gap 19H, Blood Urea Nitrogen 58H, Creatinine 13.6H, Estimat Glomerular Filtration Rate 4.6, Glucose Level 64L, Calcium Level 7.7L, Hepatitis A IgM Antibody [Pending], Hepatitis B Core IgM Antibody [Pending] Current Medications Medications (Trade) Dose Ordered Sig/Jose Route PRN Reason Start Time Stop Time Status Last Admin Dose Admin Acetaminophen/ Hydrocodone Bitart ([place] 5/325) 1 tab Q6H PRN ORAL For Pain 04/06/17 22:15 04/13/17 22:14 04/08/17 12:21 Albuterol Sulfate (Proventil) 2.5 mg Q4H PRN HHN Shortness of Breath 04/06/17 22:15 04/11/17 22:14 04/07/17 02:29 Alprazolam (Xanax) 0.5 mg DAILY PRN ORAL Anxiety 04/06/17 23:15 04/13/17 23:14 Amlodipine Besylate (Norvasc) 10 mg DAILY ORAL 04/07/17 09:00 05/07/17 08:59 04/08/17 08:39 Aripiprazole (Abilify) 15 mg DAILY ORAL 04/07/17 09:00 05/07/17 08:59 04/08/17 08:39 Aspirin (Ecotrin) 81 mg DAILY ORAL 04/07/17 09:00 05/07/17 08:59 04/08/17 08:39 Atorvastatin Calcium (Lipitor) 80 mg BEDTIME ORAL 04/07/17 21:00 05/07/17 20:59 04/07/17 20:26 Bupropion HCl (Wellbutrin) 100 mg BID ORAL 04/07/17 09:00 05/07/17 08:59 04/08/17 08:39 Carvedilol (Coreg) 37.5 mg EVERY 12 HOURS ORAL 04/08/17 21:00 05/08/17 20:59 Epoetin Bob (Procrit (for ESRD on dialysis)) 3,000 units FRI-FRI-FRI SUBQ 04/09/17 21:00 05/09/17 20:59 Heparin Sodium (Porcine) (Heparin 5000 units/ml) 5,000 units EVERY 12 HOURS SUBQ 04/07/17 09:45 05/07/17 09:44 04/07/17 20:30 Hydralazine HCl (Apresoline) 10 mg Q6HR ORAL 04/07/17 18:00 05/07/17 17:59 04/08/17 12:20 Isosorbide Mononitrate (Imdur) 30 mg DAILY ORAL 04/08/17 09:00 05/08/17 08:59 04/08/17 08:39 Multivitamins (Multivitamins) 1 tab DAILY ORAL 04/07/17 09:00 05/07/17 08:59 04/08/17 08:39 Polyethylene Glycol (Miralax) 17 gm DAILY ORAL 04/07/17 09:00 05/07/17 08:59 04/07/17 11:58 Quetiapine Fumarate (SEROquel) 100 mg HSPRN PRN ORAL Insomnia 04/06/17 23:45 05/06/17 23:44 04/07/17 03:52 Sevelamer HCl (Renagel) 1,600 mg THREE TIMES A DAY ORAL 04/07/17 09:00 05/07/17 08:59 04/08/17 12:20 Tiotropium [place] (Spiriva Inhaler) 1 puff DAILY INH 04/07/17 09:00 05/07/17 08:59 04/08/17 09:17 RAMAKRISHNA MASON Apr 08, 2017 13:12
[2017-04-08 16:00] VITALS: BP 143/79
--- NOTE | 2017-04-08 19:33 | General Progress Note ---
Assessment/Plan Assessment/Plan ASSESSMENT AND RECOMMENDATIONS: 1. Shortness of breath is related to underlying cardiomegaly as well as fluid overload with missed dialysis. --> nephrology following for HD 2. Anemia secondary to chronic disease. Continue to closely monitor. --> anemia w/u has been reviewed 3. Generalized body ache related to fluid overload. 4. End-stage renal disease, on hemodialysis. 5. Tachycardia, to be seen by Cardiology Service, isolated T-wave and ST- segment depression in V6. --> trop leak 2/2 cr elevation 6. Elevated BNP, potentially related to underlying CKD. 7. I appreciate remediation bioanalytics consultant care. Subjective Constitutional: Reports: no symptoms HEENT: Reports: no symptoms Cardiovascular: Reports: no symptoms Respiratory: Reports: no symptoms Gastrointestinal/Abdominal: Reports: no symptoms Genitourinary: Reports: no symptoms Neurologic/Psychiatric: Reports: no symptoms Endocrine: Reports: no symptoms Hematologic/Lymphatic: Reports: anemia Allergies: Coded Allergies: No Known Allergies (Unverified , 10/24/15) Subjective stable, no events to report Objective Last 24 Hour Vital Signs Date Time Temp Pulse Resp B/P (MAP) Pulse Ox O2 Delivery O2 Flow Rate FiO2 04/08/17 18:20 143/79 04/08/17 16:00 97.0 74 19 143/79 99 Nasal Cannula 4.0 04/08/17 16:00 73 04/08/17 13:40 Nasal Cannula 3.0 04/08/17 12:20 153/98 04/08/17 12:00 96.8 65 19 129/88 99 Bi-pap 40 04/08/17 12:00 67 04/08/17 09:10 79 17 99 Full Face 45 04/08/17 08:39 153/98 04/08/17 08:39 78 153/98 04/08/17 08:38 78 153/98 04/08/17 08:00 79 04/08/17 08:00 97.2 78 20 153/98 98 Bi-pap 40 04/08/17 07:17 88 18 93 Full Face 45 04/08/17 07:16 Bi-pap 45 04/08/17 07:16 93 Bi-pap 45 04/08/17 05:51 149/85 04/08/17 04:00 20 98 Nasal Cannula 4.0 04/08/17 04:00 91 04/08/17 04:00 98.9 70 20 149/85 98 04/08/17 00:24 99.1 72 19 158/90 98 04/08/17 00:10 18 98 Nasal Cannula 4.0 04/07/17 23:43 77 04/07/17 23:08 157/89 04/07/17 20:51 99.0 80 18 157/89 98 04/07/17 20:10 18 98 Nasal Cannula 4.0 04/07/17 20:00 79 04/07/17 19:44 92 Nasal Cannula 2.0 28 04/07/17 19:44 Nasal Cannula 2.0 28 Intake and Output 04/07/17 04/08/17 19:00 07:00 Intake Total 100 ml Output Total 3000 ml Balance -3000 ml 100 ml Intake Oral 100 ml Output Hemodialysis UF 3000 ml # Voids 1 # Bowel Movements 2 Laboratory Tests 04/07/17 20:50: Reticulocyte Count 3.0H, Hemoglobin A [Pending], Hemoglobin A2 [Pending], Hemoglobin C [Pending], Hemoglobin F () [Pending], Hemoglobin S [Pending], Variant Hemoglobin [Pending], Hemoglobin Electrophoresis Interp [Pending], Hemoglobin Interpretation [Pending], Hemoglobin Solubility [Pending], Fibrinogen 331, Ferritin 194, Total Bilirubin 0.7, Lactate Dehydrogenase 270H, Vitamin B12 Level 675, Folate 9.8 04/08/17 03:40: White Blood Count 8.2, Red Blood Count 3.01L, Hemoglobin 8.8L, Hematocrit 29.2L , Mean Corpuscular Volume 97, Mean Corpuscular Hemoglobin 29.4, Mean Corpuscular Hemoglobin Concent 30.3L, Red Cell Distribution Width 18.0H, Platelet Count 122L, Mean Platelet Volume 6.5, Neutrophils (%) (Auto) 69.9, Lymphocytes (%) (Auto) 12.7L, Monocytes (%) (Auto) 9.6, Eosinophils (%) (Auto) 5.5H, Basophils (%) (Auto) 2.2H, Sodium Level 139, Potassium Level 5.8H, Chloride Level 104, Carbon Dioxide Level 16L, Anion Gap 19H, Blood Urea Nitrogen 58H, Creatinine 13.6H, Estimat Glomerular Filtration Rate 4.6, Glucose Level 64L, Calcium Level 7.7L, Hepatitis A IgM Antibody [Pending], Hepatitis B Core IgM Antibody [Pending] Height (Feet): 5 Height (Inches): 8.00 Weight (Pounds): 205 General Appearance: no apparent distress EENT: TMs normal Neck: supple Cardiovascular: regular rhythm Respiratory/Chest: normal breath sounds Abdomen: soft Extremities: non-tender Irving Parker Apr 08, 2017 19:33
[2017-04-08 20:00] VITALS: BP 156/86
[2017-04-08] MEDS: Atorvastatin 80mg tab ORAL SCH (20:33)
[2017-04-08] MEDS ORDERED: Carvedilol 12.5mg tab ORAL SCH (21:00)
[2017-04-09] VITALS: BP 130/71
[2017-04-09] MEDS: Norco 5mg/325mg tab ORAL PRN (02:59)
[2017-04-09 04:00] VITALS: BP 149/90
[2017-04-09] MEDS: HydrALAZINE 10mg Tab ORAL SCH ×2 (05:41)
[2017-04-09 05:50] VITALS: BP 138/89
[2017-04-09] MEDS ORDERED: Albuterol ud Inhalation HHN PRN (06:23)
[2017-04-09] MEDS ORDERED: Carvedilol 12.5mg tab ORAL SCH (09:00)
[2017-04-09] MEDS ORDERED: Miralax 17gm pkt ORAL SCH (09:00)
[2017-04-09] MEDS ORDERED: Aspirin EC 81mg tab ORAL SCH (09:00)
[2017-04-09] MEDS ORDERED: ALPRAZolam 0.5mg tab ORAL PRN (09:00)
[2017-04-09] MEDS ORDERED: Imdur 30mg tab ORAL SCH (09:00)
[2017-04-09] MEDS ORDERED: Heparin 5000 units/ml inj SUBQ SCH (09:00)
[2017-04-09] MEDS ORDERED: Renagel 400mg cap ORAL SCH (09:00)
[2017-04-09] MEDS ORDERED: ARIPiprazole 10mg tab ORAL SCH (09:00)
[2017-04-09 09:05] VITALS: BP 138/89
[2017-04-09 09:22] LABS: HEMATOCRIT 27.5 % (42.0-52.0); HEMOGLOBIN 8.2 G/DL (14.2-18.0); MEAN CORPUSCULAR VOLUME 97 FL (80-99); PLATELET COUNT 95 K/UL (150-450); RED BLOOD COUNT 2.82 M/UL (4.70-6.10); RED CELL DISTRIBUTION WIDTH 17.8 % (11.6-14.8)
[2017-04-09 10:03] LABS: ANION GAP 13 mmol/L (5-15); BLOOD UREA NITROGEN 51 mg/dL (7-18); CALCIUM 7.8 MG/DL (8.5-10.1); CARBON DIOXIDE 24 MMOL/L (21-32); CHLORIDE 102 MMOL/L (98-107); CREATININE 10.1 MG/DL (0.55-1.30); POTASSIUM 5.1 MMOL/L (3.5-5.1); SODIUM 138 MMOL/L (136-145)
[2017-04-09] MEDS ORDERED: Norco 5mg/325mg tab ORAL PRN (10:15)
[2017-04-09] MEDS ORDERED: Tubing IV Secondary IV ONE (11:46)
[2017-04-09] MEDS ORDERED: NS 500ML ONE (11:46)
[2017-04-09] MEDS ORDERED: HydrALAZINE 10mg Tab ORAL SCH (12:00)
--- NOTE | 2017-04-09 13:01 | Pulmonology Progress Note ---
Assessment/Plan Assessment/Plan respiratory failure volume overload ESRD hypoxemia small pleural effusion CHF obesity still c/o SOB does not wish to dc BiPAP wants to leave AMA Subjective Respiratory: Reports: shortness of breath Allergies: Coded Allergies: No Known Allergies (Unverified , 10/24/15) Objective Last 24 Hour Vital Signs Date Time Temp Pulse Resp B/P (MAP) Pulse Ox O2 Delivery O2 Flow Rate FiO2 04/09/17 09:05 138/89 04/09/17 09:05 75 138/89 04/09/17 09:03 70 154/84 04/09/17 08:57 75 20 99 Full Face 45 04/09/17 07:47 Bi-pap 45 04/09/17 06:59 95 Bi-pap 45 04/09/17 06:58 77 20 99 Full Face 45 04/09/17 05:50 97.7 76 20 138/89 93 Room Air 04/09/17 05:41 145/85 04/09/17 04:00 74 04/09/17 04:00 97.6 76 20 149/90 99 Nasal Cannula 4.0 04/09/17 00:00 72 04/09/17 00:00 97.2 73 20 130/71 99 Nasal Cannula 4.0 04/09/17 00:00 130/75 04/08/17 20:34 89 150/83 04/08/17 20:00 97.2 89 20 156/86 99 Nasal Cannula 4.0 04/08/17 20:00 88 04/08/17 19:00 Nasal Cannula 2.0 28 04/08/17 19:00 95 Nasal Cannula 2.0 28 04/08/17 18:20 143/79 04/08/17 16:00 97.0 74 19 143/79 99 Nasal Cannula 4.0 04/08/17 16:00 73 04/08/17 13:40 Nasal Cannula 3.0 Intake and Output 04/08/17 04/09/17 19:00 07:00 Intake Total 420 ml 240 ml Output Total 3000 ml Balance -2580 ml 240 ml Intake Oral 420 ml 240 ml Output Hemodialysis UF 3000 ml # Voids 3 2 # Bowel Movements 4 1 Objective BiPAP General Appearance: no acute distress Respiratory/Chest: lungs clear Cardiovascular: normal rate Microbiology Date/Time Source Procedure Growth Status 04/06/17 20:10 Nasal Nares Influenza Types A,B Antigen (RELL) - Final Complete Laboratory Tests 04/09/17 09:00: White Blood Count 5.0, Red Blood Count 2.82L, Hemoglobin 8.2L, Hematocrit 27.5L , Mean Corpuscular Volume 97, Mean Corpuscular Hemoglobin 29.0, Mean Corpuscular Hemoglobin Concent 29.8L, Red Cell Distribution Width 17.8H, Platelet Count 95L, Mean Platelet Volume 6.4L, Neutrophils (%) (Auto) , Lymphocytes (%) (Auto) , Monocytes (%) (Auto) , Eosinophils (%) (Auto) , Basophils (%) (Auto) , Differential Total Cells Counted 100, Neutrophils % ( Manual) 65, Lymphocytes % (Manual) 20, Monocytes % (Manual) 9, Eosinophils % ( Manual) 6H, Basophils % (Manual) 0, Band Neutrophils 0, Platelet Estimate DecreasedL, Platelet Morphology Normal, Hypochromasia 1+, Anisocytosis 1+, Sodium Level 138, Potassium Level 5.1, Chloride Level 102, Carbon Dioxide Level 24, Anion Gap 13, Blood Urea Nitrogen 51H, Creatinine 10.1H, Estimat Glomerular Filtration Rate 6.4, Glucose Level 126H, Calcium Level 7.8L RAMAKRISHNA MASON Apr 09, 2017 13:01
[2017-04-09] MEDS ORDERED: Epogen (for ESRD on dialysis) SUBQ SCH ×2 (21:00)
[2017-04-09] MEDS ORDERED: Atorvastatin 80mg tab ORAL SCH (21:00)
--- NOTE | 2017-04-10 10:59 | Discharge Summary ---
Discharge Summary Hospital Course Date of Admission Apr 06, 2017 at 18:48 Date of Discharge Apr 09, 2017 at 11:47 Admitting Diagnosis SOB HPI Jordin Leslie is a 57 year old male who was admitted on Apr 06, 2017 at 18: 48 for Shortness Of Breath Hospital Course [id number] Discharge Discharge Disposition Patient was discharged to Discharge Diagnoses: Katya Snowden NP Apr 10, 2017 10:59
--- NOTE | 2017-04-11 | Discharge Summary 2 SIG ---
DATE OF ADMISSION: 04/06/2017 DATE OF DISCHARGE: 04/09/2017 BRIEF HOSPITAL COURSE: The patient is a 57-year-old male with medical history significant for end-stage renal disease, on hemodialysis, hypertension, asthma, COPD, diabetes mellitus, gall stones. He had history of missed dialysis and was noted to be volume overloaded. On evaluation at ED, workup showed elevated BNP 35,000. He was high risk for flu and was given Tamiflu. Influenza A and B screen was negative. Troponin was elevated likely due to chronic kidney disease. EKG showed isolated T-wave inversion in V6 with depression. Chest x-ray showed no obvious pneumonia, however, findings were compatible with congestive heart failure and small right pleural effusion. There was AICD seen. He was initially placed on BiPAP and had it on overnight. There was no evidence of overt infection. No antibiotic was given. He received inpatient hemodialysis and was given Norvasc, Coreg and Imdur for blood pressure management. Troponin elevation likely due to patient's renal failure and the patient does not have any chest pain. He has a Biotronik defibrillator that showed normal LV function. The patient is still with shortness of breath. Full treatment was not carried out as he signed out against medical advice. FINAL DIAGNOSES: 1. Acute respiratory failure. 2. Volume overload. 3. End-stage renal disease. 4. Obesity. 5. Anemia secondary to chronic disease. 6. Elevated beta-natriuretic peptide secondary to underlying chronic kidney disease. 7. Chronic obstructive pulmonary disease. 8. Status post Biotronik defibrillator implantation. 9. Accelerated hypertension. 10. Cardiomyopathy with ejection fraction 40%. 11. Paroxysmal atrial fibrillation. 12. Hepatitis B and hepatitis C. 13. Depression and schizophrenia. DISPOSITION: The patient left against medical advice. Davis Sampson M.D. I have been assigned to dictate discharge summary on this account and I was not involved in the patient's management. Katya Snowden N.P. DR: AJIT JOB#: [id number] CC:
== END 2017-04-09 11:47 | disposition left against medical advice (07) | DRG 194 ==
LOC: EDBD 16:27 → EDBEDREQ 16:37 → EMR 16:37 → 4E 18:48 → EDBEDREQ 20:10 → 2W 23:20 → 2E 04-09 06:12
PROC: 5A1D70Z Performance of Urinary Filtration, Intermittent, Less than 6 Hours Per Day (ICD-10-PCS; principal; 2017-04-07)
PROC: 5A09357 Assistance with Respiratory Ventilation, Less than 24 Consecutive Hours, Continuous Positive Airway Pressure (ICD-10-PCS; 2017-04-07)
PROC: 5A1D70Z Performance of Urinary Filtration, Intermittent, Less than 6 Hours Per Day (ICD-10-PCS; 2017-04-08)
DX: I13.2 Hypertensive heart and chronic kidney disease with heart failure and with stage 5 chronic kidney disease, or end stage renal disease (principal); J96.01 Acute respiratory failure with hypoxia; J20.9 Acute bronchitis, unspecified; N18.6 End stage renal disease; I42.9 Cardiomyopathy, unspecified; B19.10 Unspecified viral hepatitis B without hepatic coma; I48.0 Paroxysmal atrial fibrillation; I50.9 Heart failure, unspecified; Z99.2 Dependence on renal dialysis; Z95.810 Presence of automatic (implantable) cardiac defibrillator; B19.20 Unspecified viral hepatitis C without hepatic coma; F20.9 Schizophrenia, unspecified; Z53.21 Procedure and treatment not carried out due to patient leaving prior to being seen by health care provider; E66.9 Obesity, unspecified; D63.1 Anemia in chronic kidney disease; R00.0 Tachycardia, unspecified; J44.9 Chronic obstructive pulmonary disease, unspecified; F32.89 Other specified depressive episodes; Z68.31 Body mass index [BMI] 31.0-31.9, adult
CPT/HCPCS: 36415; 71010; 80048; 80053; 82247; 82550; 82553; 82607; 82728; 82746; 82962; 83020; 83615; 83880; 84484; 85007; 85025; 85044; 85384; 86705; 86709; 86710; 86803; 87340; 94640; 94660; 94664; 94760; 99285

== ENCOUNTER 2017-04-16 09:34 | Emergency (ER) | payer MEDICAID ==
[~2017-04-16] VITALS: Ht 177.8 cm; Wt 86.2 kg
[~2017-04-16 09:34] MED LIST changes: +ALBUTEROL2.5 MG/3 M INH; +AMLODIPINE BESY10 MG ORAL; +ASPIR 8181 MG ORAL; +BUPROPION HCL75 MG PO; +FOLIC ACID1 MG ORAL; +MIRALAX17 G2 ORAL; +MULTIVITAMINS1 EAC2 ORAL; +SPIRIVA18 MCG INH
[2017-04-16] MEDS ORDERED: Norco 5mg/325mg tab ORAL ONE (10:15)
[2017-04-16 10:30] VITALS: BP 125/81
[2017-04-16 10:37] LABS: BASOPHILS % (AUTO) 1.3 % (0.0-2.0); EOSINOPHILS % (AUTO) 7.2 % (0.0-3.0); HEMATOCRIT 29.4 % (42.0-52.0); HEMOGLOBIN 8.6 G/DL (14.2-18.0); LYMPHOCYTES % (AUTO) 19.3 % (20.0-45.0); MEAN CORPUSCULAR VOLUME 96 FL (80-99); MONOCYTES % (AUTO) 16.4 % (1.0-10.0); NEUTROPHILS % (AUTO) 55.8 % (45.0-75.0); PLATELET COUNT 127 K/UL (150-450); RED BLOOD COUNT 3.04 M/UL (4.70-6.10); RED CELL DISTRIBUTION WIDTH 16.5 % (11.6-14.8); WHITE BLOOD COUNT 5.4 K/UL (4.8-10.8)
[2017-04-16 10:48] LABS: ANION GAP 14 mmol/L (5-15); CARBON DIOXIDE 26 MMOL/L (21-32); CHLORIDE 104 MMOL/L (98-107); POTASSIUM 4.4 MMOL/L (3.5-5.1); SODIUM 143 MMOL/L (136-145)
[2017-04-16 11:14] LABS: ALBUMIN 3.2 G/DL (3.4-5.0); ALBUMIN/GLOBULIN RATIO 0.8 (1.0-2.7); ALKALINE PHOSPHATASE 179 U/L (46-116); ASPARTATE AMINO TRANSFERASE 25 U/L (15-37); CALCIUM 9.1 MG/DL (8.5-10.1); CKMB 2.8 NG/ML (0.0-3.6); CREATINE KINASE 76 U/L (26-308); CREATININE 12.9 MG/DL (0.55-1.30)
--- NOTE | 2017-04-16 11:22 | Diagnostic Imaging Report ---
Indication: Dyspnea Technique: XRAY Chest 1v Comparison: 04/06/2017 Findings: Stable cardiomegaly. Left-sided single lead AICD unchanged in position. There is interstitial opacification/edema and patchy bilateral airspace opacities, right greater than left. There is unchanged linear scarring or atelectasis in the right lung. The small right pleural effusion. There is no pneumothorax. No acute bony abnormality seen. Impression: Cardiomegaly and bilateral interstitial and patchy airspace opacities thought to be related to CHF/pulmonary edema. Superimposed pneumonia not entirely excluded. Clinical correlation and follow-up exam recommended.
[2017-04-16 12:30] VITALS: BP 128/77
[2017-04-16 12:41] LABS: ALANINE AMINOTRANSFERASE < 6 U/L (12-78); BILIRUBIN,TOTAL 0.5 MG/DL (0.2-1.0)
[2017-04-16 12:51] LABS: BLOOD UREA NITROGEN 69 mg/dL (7-18)
[2017-04-16] MEDS ORDERED: NORCO 10-325 T1 EACH ORAL (13:24)
[2017-04-16] MEDS ORDERED: NITROGLYCERIN0.4 MG SL (13:24)
[2017-04-16 13:40] VITALS: BP 128/77
--- NOTE | 2017-04-19 15:38 | Cardiology Report ---
APPROVED REPORT EKG Measurement Heart [id number] CT [id number] Normal sinus rhythm Cannot rule out Anterior infarct, age undetermined T wave abnormality, consider lateral ischemia Abnormal ECG
--- NOTE | 2017-04-20 10:21 | Emergency Room Report ---
History of Present Illness General Chief Complaint: General Complaint Source: EMS Present Illness HPI Patient is a 57-year-old male presented by EMS after AICD discharge. The patient had prior history of end-stage renal disease. He had recent dialysis. Patient had reportedly had discharge from his implanted defibrillator. He denies any current pain or shortness of breath. The patient states that he feels fine. He denies any fever palpitations. Allergies: Coded Allergies: No Known Allergies (Unverified , 10/24/15) Patient History Past Medical History: see triage record, CAD Reviewed Nursing Documentation: PMH: Agreed, PSxH: Agreed Nursing Documentation-PMH Hx Cardiac Problems: Yes Hx Hypertension: Yes Hx Pacemaker: Yes Hx Asthma: Yes Hx COPD: Yes Hx Diabetes: Yes Hx Cancer: No Hx Gastrointestinal Problems: No Hx Dialysis: Yes - Left Upper Arm Shunt History Of Psychiatric Problem: Yes Hx Neurological Problems: Yes - TUE, THUR, SAT Hx Cerebrovascular Accident: Yes Hx Seizures: Yes Review of Systems All Other Systems: negative except mentioned in HPI Physical Exam Vital Signs Date Time Temp Pulse Resp B/P (MAP) Pulse Ox O2 Delivery O2 Flow Rate FiO2 04/16/17 09:28 97.7 73 20 155/92 95 Room Air Sp02 EP Interpretation: reviewed, normal General Appearance: normal inspection, alert, Chronically Ill Head: atraumatic ENT: normal ENT inspection, hearing grossly normal, normal voice Neck: normal inspection, full range of motion, supple, no bony tend Respiratory: normal inspection, lungs clear, normal breath sounds, no respiratory distress, no retraction, no wheezing Cardiovascular #1: regular rate, rhythm, no edema Gastrointestinal: normal inspection, normal bowel sounds, non tender, soft, no guarding, no hernia Genitourinary: no CVA tenderness Musculoskeletal: normal inspection, back normal, normal range of motion Neurologic: normal inspection, alert, oriented x3, responsive, 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 Differential diagnosis include was noted to electrolyte abnormality, arrhythmia, myocardial infarction and among others.Because of complexity of patient's case laboratory testing and imaging studies were ordered. The patient noted have a prior history of cardiac disease. Laboratory studies showed no evidence of acute electrolyte abnormality. Patient was noted to have chronic renal failure. The patient given oral pain medications for chronic pain. Patient was offered admission for defibrillator interrogation. Patient said he did not want admission and wanted to followup with his own physician. The patient is advised to follow up with primary care doctor in 1-2 days. Patient is advised to return if any worsening condition or if any changes in status that are concerning. This report is dictated with [employer] crystal growing technician software which may occasionally lead to discrepancies related to use of this software. Labs Test 04/16/17 10:20 White Blood Count 5.4 K/UL (4.8-10.8) Red Blood Count 3.04 M/UL (4.70-6.10) Hemoglobin 8.6 G/DL (14.2-18.0) Hematocrit 29.4 % (42.0-52.0) Mean Corpuscular Volume 96 FL (80-99) Mean Corpuscular Hemoglobin 28.2 PG (27.0-31.0) Mean Corpuscular Hemoglobin Concent 29.2 G/DL (32.0-36.0) Red Cell Distribution Width 16.5 % (11.6-14.8) Platelet Count 127 K/UL (150-450) Mean Platelet Volume 7.0 FL (6.5-10.1) Neutrophils (%) (Auto) 55.8 % (45.0-75.0) Lymphocytes (%) (Auto) 19.3 % (20.0-45.0) Monocytes (%) (Auto) 16.4 % (1.0-10.0) Eosinophils (%) (Auto) 7.2 % (0.0-3.0) Basophils (%) (Auto) 1.3 % (0.0-2.0) Sodium Level 143 MMOL/L (136-145) Potassium Level 4.4 MMOL/L (3.5-5.1) Chloride Level 104 MMOL/L (98-107) Carbon Dioxide Level 26 MMOL/L (21-32) Anion Gap 14 mmol/L (5-15) Blood Urea Nitrogen 69 mg/dL (7-18) Creatinine 12.9 MG/DL (0.55-1.30) Estimat Glomerular Filtration Rate 4.8 mL/min (>60) Glucose Level 93 MG/DL (74-106) Calcium Level 9.1 MG/DL (8.5-10.1) Total Bilirubin 0.5 MG/DL (0.2-1.0) Aspartate Amino Transf (AST/SGOT) 25 U/L (15-37) Alanine Aminotransferase (ALT/SGPT) < 6 U/L (12-78) Alkaline Phosphatase 179 U/L (46-116) Total Creatine Kinase 76 U/L (26-308) Creatine Kinase MB 2.8 NG/ML (0.0-3.6) Creatine Kinase MB Relative Index 3.6 Troponin I 0.094 ng/mL (0.000-0.056) Total Protein 7.2 G/DL (6.4-8.2) Albumin 3.2 G/DL (3.4-5.0) Globulin 4.0 g/dL Albumin/Globulin Ratio 0.8 (1.0-2.7) Last Vital Signs Date Time Temp Pulse Resp B/P (MAP) Pulse Ox O2 Delivery O2 Flow Rate FiO2 04/16/17 13:40 97.7 70 19 128/77 94 Room Air Status: improved Disposition: HOME, SELF-CARE Condition: Stable Scripts Nitroglycerin (NITROGLYCERIN) 0.4 Mg Tab.subl 0.4 MG SL NEEDED for Shortness of Breath, #100 TAB Prov: Shawn Rothman 04/16/17 Hydrocodone Bit/Acetaminophen 10-325* (NORCO 10-325*) 1 Each Tablet 1 TAB ORAL Q6H Y for For Pain, #10 TAB 0 Refills PRN PAIN Prov: Shawn Rothman 04/16/17 Patient Instructions: Anemia, Nonspecific, Cardiac Event Monitoring Shawn Rothman Apr 20, 2017 10:21
== END 2017-04-16 13:50 | disposition home or self-care (01) ==
LOC: EDBD 09:34 → EMR 10:05
DX: Z45.02 Encounter for adjustment and management of automatic implantable cardiac defibrillator (principal); Z95.810 Presence of automatic (implantable) cardiac defibrillator; I12.0 Hypertensive chronic kidney disease with stage 5 chronic kidney disease or end stage renal disease; N18.6 End stage renal disease; Z99.2 Dependence on renal dialysis; I25.10 Atherosclerotic heart disease of native coronary artery without angina pectoris; Z86.73 Personal history of transient ischemic attack (TIA), and cerebral infarction without residual deficits; J44.9 Chronic obstructive pulmonary disease, unspecified
CPT/HCPCS: 36415; 71045; 80053; 82550; 82553; 84484; 85025; 93005; 99283

== ENCOUNTER 2017-05-23 03:59 | Inpatient (IN) | payer MEDICAID ==
[~2017-05-23] VITALS: Ht 170.2 cm; Wt 114.3 kg
[~2017-05-23 03:59] MED LIST changes: +NITROGLYCERIN0.4 MG SL; +NORCO 10-325 T1 EACH ORAL
[2017-05-23 04:27] VITALS: BP 187/96
[2017-05-23] MEDS ORDERED: Nitroglycerin Subl 0.4mg tab SL PRN ×2 (04:30→08:45)
[2017-05-23 04:33] LABS: EOSINOPHILS % (AUTO) 4.4 % (0.0-3.0); HEMOGLOBIN 10.9 G/DL (14.2-18.0); MEAN CORPUSCULAR VOLUME 91 FL (80-99); MONOCYTES % (AUTO) 7.6 % (1.0-10.0); NEUTROPHILS % (AUTO) 76.1 % (45.0-75.0); PLATELET COUNT 131 K/UL (150-450); RED BLOOD COUNT 3.85 M/UL (4.70-6.10); RED CELL DISTRIBUTION WIDTH 16.9 % (11.6-14.8); WHITE BLOOD COUNT 5.3 K/UL (4.8-10.8)
[2017-05-23 04:53] LABS: ANION GAP 11 mmol/L (5-15); BLOOD UREA NITROGEN 95 mg/dL (7-18); CALCIUM 8.9 MG/DL (8.5-10.1); CARBON DIOXIDE 26 MMOL/L (21-32); CHLORIDE 97 MMOL/L (98-107); CREATININE 8.7 MG/DL (0.55-1.30); POTASSIUM 4.8 MMOL/L (3.5-5.1); SODIUM 134 MMOL/L (136-145)
[2017-05-23] MEDS ORDERED: Ipratropium 0.02% Inh Soln 2.5ml UD HHN ONE (05:00)
[2017-05-23] MEDS ORDERED: Solu-MEDROL 125mg Inj IVP ONE (05:00)
[2017-05-23] MEDS ORDERED: Albuterol ud Inhalation HHN ONE (05:00)
[2017-05-23 05:06] LABS: ALANINE AMINOTRANSFERASE 75 U/L (12-78); ALBUMIN 3.5 G/DL (3.4-5.0); ALBUMIN/GLOBULIN RATIO 0.8 (1.0-2.7); ALKALINE PHOSPHATASE 170 U/L (46-116); ASPARTATE AMINO TRANSFERASE 37 U/L (15-37); BILIRUBIN,TOTAL 0.5 MG/DL (0.2-1.0); CKMB 9.3 NG/ML (0.0-3.6); CREATINE KINASE 84 U/L (26-308)
[2017-05-23] MEDS ORDERED: Morphine Sulfate 4mg/ml Inj IVP ONE (05:30)
--- NOTE | 2017-05-23 06:16 | Emergency Room Report ---
History of Present Illness General Chief Complaint: Chest Pain Source: Patient Present Illness HPI 57-year-old male presents ED for evaluation. Patient complaining of chest pain. Started 2 hours prior to arrival. Started at rest. Pressure, 8/10, nonradiating. History of end-stage renal disease on dialysis. Dialysis yesterday. Denies fevers or chills. Notes cough which is productive. States he was recently discharged from another hospital for "pneumonia or flu". No other aggravating relieving factors. Denies any other associated symptoms Allergies: Coded Allergies: No Known Allergies (Unverified , 10/24/15) Patient History Past Medical History: asthma, COPD, seizures, renal disease, dialysis Past Surgical History: pacemaker Pertinent Family History: none Social History: Denies: smoking, alcohol use, drug use Immunizations: UTD Reviewed Nursing Documentation: PMH: Agreed, PSxH: Agreed Nursing Documentation-PMH Hx Cardiac Problems: Yes - CHF Hx Hypertension: Yes Hx Pacemaker: Yes Hx Asthma: Yes Hx COPD: Yes Hx Diabetes: Yes Hx Cancer: No Hx Gastrointestinal Problems: No - kidney failure Hx Dialysis: Yes - Left Upper Arm Shunt Hx Neurological Problems: Yes - TUE, THUR, SAT Hx Cerebrovascular Accident: Yes Hx Seizures: Yes Review of Systems All Other Systems: negative except mentioned in HPI Physical Exam Vital Signs Date Time Temp Pulse Resp B/P (MAP) Pulse Ox O2 Delivery O2 Flow Rate FiO2 05/23/17 03:59 97.8 92 18 204/113 98 Room Air 97.9 05/23/17 04:27 3.0 05/23/17 05:00 21 Sp02 EP Interpretation: reviewed, normal General Appearance: no apparent distress, alert, GCS 15, non-toxic Head: normocephalic, atraumatic Eyes: bilateral eye normal inspection, bilateral eye PERRL ENT: hearing grossly normal, normal pharynx, no angioedema, normal voice Neck: full range of motion, supple/symm/no masses Respiratory: chest non-tender, decreased breath sounds, crackles, speaking full sentences Cardiovascular #1: regular rate, rhythm, no edema Cardiovascular #2: 2+ carotid (R), 2+ carotid (L), 2+ radial (R), 2+ radial (L) , 2+ dorsalis pedis (R), 2+ dorsalis pedis (L) Gastrointestinal: normal bowel sounds, non tender, soft, non-distended, no guarding, no rebound Rectal: deferred Genitourinary: normal inspection, no CVA tenderness Musculoskeletal: back normal, gait/station normal, normal range of motion, non- tender Neurologic: alert, oriented x3, responsive, motor strength/tone normal, sensory intact, speech normal Psychiatric: judgement/insight normal, memory normal, mood/affect normal, no suicidal/homicidal ideation Reflexes: 3+ bicep (R), 3+ bicep (L), 3+ tricep (R), 3+ tricep (L), 3+ knee (R) , 3+ knee (L) Skin: normal color, no rash, warm/dry, well hydrated Lymphatic: no adenopathy Medical Decision Making Diagnostic Impression: Primary Impression: ACS (acute coronary syndrome) Additional Impression: ESRD (end stage renal disease) on dialysis ER Course Hospital Course 57-year-old male presents ED complaining of chest pain Differential diagnoses include: [place]/unstable angina, contusion, muscle strain, PTX, rib fracture Clinical course Patient placed on stretcher. on clinical research monitor. After initial history and physical I ordered labs, EKG, chest x-ray, NTG labs reviewed- no leukocytosis, hb/hct stable, BUN/Cr elevated, K ok, trop 0.262 , BNP elevated EKG - NSR, no acute ischemic changes interpreted by me Chest x-ray- cardiomegaly. interstitial changes. AICD Given morphine. given aspirin Case discussed with Dr. Weinstein and he agreed to accept the patient to his service for further care and support I. I feel this is a highly complex case requiring extensive working including EKG/Rhythm strip, Xray/CT/US, Blood/urine lab work, repeat exams while in ED, and administration of strong opiates/narcotics for pain control, admission to hospital or close patient follow up. Diagnosis - ACS, ESRD on dialysis admitted to telemetry in serious condition Labs Test 05/23/17 04:30 White Blood Count 5.3 K/UL (4.8-10.8) Red Blood Count 3.85 M/UL (4.70-6.10) Hemoglobin 10.9 G/DL (14.2-18.0) Hematocrit 35.0 % (42.0-52.0) Mean Corpuscular Volume 91 FL (80-99) Mean Corpuscular Hemoglobin 28.2 PG (27.0-31.0) Mean Corpuscular Hemoglobin Concent 31.0 G/DL (32.0-36.0) Red Cell Distribution Width 16.9 % (11.6-14.8) Platelet Count 131 K/UL (150-450) Mean Platelet Volume 8.3 FL (6.5-10.1) Neutrophils (%) (Auto) 76.1 % (45.0-75.0) Lymphocytes (%) (Auto) 11.0 % (20.0-45.0) Monocytes (%) (Auto) 7.6 % (1.0-10.0) Eosinophils (%) (Auto) 4.4 % (0.0-3.0) Basophils (%) (Auto) 1.0 % (0.0-2.0) Sodium Level 134 MMOL/L (136-145) Potassium Level 4.8 MMOL/L (3.5-5.1) Chloride Level 97 MMOL/L (98-107) Carbon Dioxide Level 26 MMOL/L (21-32) Anion Gap 11 mmol/L (5-15) Blood Urea Nitrogen 95 mg/dL (7-18) Creatinine 8.7 MG/DL (0.55-1.30) Estimat Glomerular Filtration Rate 7.6 mL/min (>60) Glucose Level 88 MG/DL (74-106) Lactic Acid Level 0.30 mmol/L (0.66-2.22) Calcium Level 8.9 MG/DL (8.5-10.1) Total Bilirubin 0.5 MG/DL (0.2-1.0) Aspartate Amino Transf (AST/SGOT) 37 U/L (15-37) Alanine Aminotransferase (ALT/SGPT) 75 U/L (12-78) Alkaline Phosphatase 170 U/L (46-116) Total Creatine Kinase 84 U/L (26-308) Creatine Kinase MB 9.3 NG/ML (0.0-3.6) Creatine Kinase MB Relative Index 11.0 Troponin I 0.262 ng/mL (0.000-0.056) Pro-B-Type Natriuretic Peptide 08448 pg/mL (0-125) Total Protein 7.7 G/DL (6.4-8.2) Albumin 3.5 G/DL (3.4-5.0) Globulin 4.2 g/dL Albumin/Globulin Ratio 0.8 (1.0-2.7) EKG Diagnostic Results Rate: normal Rhythm: NSR ST Segments: no acute changes ASA given to the pt in ED: Yes Rhythm Strip Diag. Results EP Interpretation: yes Rhythm: NSR, no PVC's, no ectopy Chest X-Ray Diagnostic Results Chest X-Ray Diagnostic Results : Chest X-Ray Ordered: Yes # of Views/Limited/Complete: 1 View Indication: Chest Pain EP Interpretation: Yes Interpretation: no pneumothorax, other - defibrillator. bilateral patchy Impression: Other - CHF, congestion Electronically Signed by: Electronically signed by Fermín Baker MD Last Vital Signs Date Time Temp Pulse Resp B/P (MAP) Pulse Ox O2 Delivery O2 Flow Rate FiO2 05/23/17 05:17 91 18 98 Room Air 21 05/23/17 04:30 187/96 05/23/17 04:27 97.6 3.0 97.6 Status: improved Disposition: ADMITTED INPATIENT Condition: Serious Referrals: [facility],REFERRING (PCP) FERMÍN BAKRE M.D. May 23, 2017 06:16
[2017-05-23 06:30] VITALS: BP 177/99
[2017-05-23] MEDS ORDERED: Albuterol ud Inhalation HHN PRN (08:45)
[2017-05-23] MEDS ORDERED: DiphenhydrAMINE 25mg/10ml Elixir ORAL PRN (08:45)
[2017-05-23] MEDS ORDERED: ALPRAZolam 0.5mg tab ORAL SCH (09:00)
--- NOTE | 2017-05-23 09:42 | Diagnostic Imaging Report ---
Indication: Chest pain Technique: One view of the chest Comparison: 04/16/2017 Findings: The heart is enlarged. Again demonstrated is diffuse bilateral interstitial edema with some airspace edema as well. Linear bands in the right lung likely reflect areas of scarring. There is probably a small right pleural effusion. Left chest AICD remains Impression: Cardiomegaly with bilateral pulmonary interstitial and alveolar edema, appearing similar to prior study of 04/16/2017
[2017-05-23] MEDS: Carvedilol 25mg Tab ORAL SCH ×2 (10:00→21:18)
[2017-05-23] MEDS ORDERED: Lisinopril 20mg tab ORAL SCH (11:00)
[2017-05-23] MEDS ORDERED: Irbesartan 150mg tablet ORAL SCH (11:00)
[2017-05-23] MEDS ORDERED: Imdur 30mg tab ORAL SCH (11:00)
[2017-05-23] MEDS ORDERED: Miralax 17gm pkt ORAL SCH (11:00)
[2017-05-23] MEDS ORDERED: BuPROPion 75mg Tab ORAL SCH (11:00)
[2017-05-23 11:11] LABS: INR 1.2 (0.9-1.1)
[2017-05-23] MEDS: Aspirin Baby 81mg ORAL SCH (11:21)
[2017-05-23] MEDS: ARIPiprazole 10mg tab ORAL SCH (11:21)
[2017-05-23 12:00] VITALS: BP 158/87
[2017-05-23] MEDS ORDERED: Albuterol/Ipratropium 3ml neb HHN PRN (12:15)
--- NOTE | 2017-05-23 12:22 | Consultation ---
History of Present Illness General Date patient seen: May 23, 2017 Time patient seen: 11:30 Chief Complaint: Chest Pain, SOB Referring physician: dr Weinstein Reason for Consultation: pulm consult Present Illness HPI 57y/old male with PMH of ESRD, on HD, cardiomyopathic, AICD, HTN, COPD , seizure disorder, CVA presented to ED for evaluation. Patient complained of chest pain, which started 2 hours prior to arrival at rest. CP decried as pressure like , 8/10, nonradiating. Denied fevers or chills. Noted productive cough, no hemoptysis recent hospitalization, not sure for flu or PNA In ED BP severely elevated -204/11, pulse ox stable on o2 via NC afebrile no leukocytosis HH withe vidne of anemia- 10.9/35 elevated troponin -0.262 elevated pro BNP ECG with NSR , no acute ischemic changes BUN and creat elevated c/w known hx of ESRD K stable CXR with CM, interstitial changes patient was admitted for further management Allergies: Coded Allergies: No Known Allergies (Unverified , 10/24/15) Medication History Scheduled Alprazolam* (Xanax*), 2 MG ORAL THREE TIMES A DAY, (Reported) Amlodipine Besylate* (Amlodipine Besylate*), 10 MG ORAL DAILY, (Reported) Aripiprazole* (Abilify*), 15 MG ORAL DAILY, (Reported) Aspirin* (Aspir 81*), 81 MG ORAL DAILY, (Reported) Atorvastatin (Lipitor), 80 MG ORAL DAILY, (Reported) Bupropion Hcl* (Bupropion Hcl*), 100 MG PO BID, (Reported) Carisoprodol* (Carisoprodol*), 350 MG ORAL Q6H, (Reported) Carvedilol* (Carvedilol*), 25 MG ORAL EVERY 12 HOURS, (Reported) Donepezil Hcl (Aricept), 5 MG ORAL DAILY, (Reported) Ferrous Sulfate, Dried (Ferrous Sulfate), 325 GM MC EVERY 8 HOURS, (Reported) Folic Acid* (Folic Acid*), 1 MG ORAL DAILY, (Reported) Hydrocodone Bit/Acetaminophen 10-325* (Hydrocodon-Acetaminophn 10-325*), 1 TAB ORAL Q6H, (Reported) Lisinopril (Lisinopril*), 20 MG ORAL DAILY, (Reported) Multivitamins* (Multivitamins*), 1 TAB ORAL DAILY, (Reported) Nitroglycerin (Nitroglycerin), 0.4 MG SL NEEDED Omeprazole (Omeprazole), 20 MG ORAL DAILY, (Reported) Polyethylene Glycol 3350* (Miralax*), 17 GM ORAL DAILY, (Reported) Quetiapine Fumarate (Quetiapine Fumarate), 100 MG ORAL DAILY, (Reported) Sevelamer HCl (Renagel), 800 MG ORAL THREE TIMES A DAY, (Reported) Simvastatin (Zocor), 20 MG ORAL BEDTIME, (Reported) Tiotropium [place]* (Spiriva*), 1 PUFF INH DAILY, (Reported) Valsartan (Diovan), 160 MG ORAL DAILY, (Reported) Warfarin Sod* (Warfarin Sod*), 5 MG ORAL DAILY, (Reported) Scheduled PRN Albuterol Sulfate* (Albuterol Sulfate Hhn*), 3 ML INH Q4H PRN for Shortness of Breath, (Reported) Diphenhydramine Hcl* (Benadryl*), 25 MG ORAL Q6H PRN for Itching, (Reported) Hydrocodone Bit/Acetaminophen 10-325* ([place] 10-325*), 1 TAB ORAL Q6H PRN for For Pain Ondansetron* (Zofran*), 4 MG ORAL Q6H PRN for Nausea & Vomiting, (Reported) Miscellaneous Medications Isosorbide Mononitrate (Isosorbide Mononitrate Er), 30 MG PO, (Reported) Loratadine (Loratadine), 10 MG PO, (Reported) Patient History History Provided By: Patient Healthcare decision maker Resuscitation status Advanced Directive on File Past Medical/Surgical History Past Medical/Surgical History: (1) ESRD (end stage renal disease) on dialysis Review of Systems Constitutional: Reports: weakness Eye: Reports: no symptoms ENT: Reports: no symptoms Respiratory: Reports: see HPI Cardiovascular: Reports: see HPI Gastrointestinal: Reports: constipation Genitourinary: Reports: other - ESRD on HD, Skin: Reports: no symptoms Psychiatric: Reports: no symptoms Neurological: Reports: seizure Endocrine: Reports: no symptoms Physical Exam General Appearance: other - A/A/O x 4 AA male in mild resp distress Lines, tubes and drains: peripheral HEENT: normocephalic, atraumatic, anicteric, mucous membranes moist, PERRL Neck: supple Respiratory/Chest: decreased breath sounds, expiratory wheezing - few scattered exp wheezes , other - L chest AICD Cardiovascular/Chest: normal rate, regular rhythm - SR on tele, other - L AV shunt6 + bruit/thrill Abdomen: normal bowel sounds, non tender, soft - obese Skin Exam: warm/dry Neurologic: alert Musculoskeletal: normal muscle bulk Last 24 Hour Vital Signs Date Time Temp Pulse Resp B/P (MAP) Pulse Ox O2 Delivery O2 Flow Rate FiO2 05/23/17 11:25 181/101 05/23/17 11:23 181/101 05/23/17 11:23 79 181/101 05/23/17 11:22 181/101 05/23/17 10:00 79 181/101 05/23/17 07:58 97.6 92 14 177/99 100 Room Air 3.0 21 207.7 85 05/23/17 07:05 97.6 05/23/17 06:30 85 14 177/99 100 Room Air 05/23/17 05:17 91 18 98 Room Air 21 05/23/17 05:08 89 24 Room Air 21 05/23/17 05:07 21 05/23/17 05:00 89 24 93 Room Air 21 05/23/17 04:30 187/96 05/23/17 04:27 97.6 92 31 187/96 91 Nasal Cannula 3.0 97.6 05/23/17 04:10 92 18 Room Air 05/23/17 03:59 97.8 92 18 204/113 98 Room Air 97.9 Intake and Output 05/22/17 05/23/17 19:00 07:00 Intake Total 0 ml Balance 0 ml Intake Oral 0 ml Laboratory Tests Test 05/23/17 04:30 05/23/17 10:55 White Blood Count 5.3 K/UL (4.8-10.8) Red Blood Count 3.85 M/UL (4.70-6.10) L Hemoglobin 10.9 G/DL (14.2-18.0) L Hematocrit 35.0 % (42.0-52.0) L Mean Corpuscular Volume 91 FL (80-99) Mean Corpuscular Hemoglobin 28.2 PG (27.0-31.0) Mean Corpuscular Hemoglobin Concent 31.0 G/DL (32.0-36.0) L Red Cell Distribution Width 16.9 % (11.6-14.8) H Platelet Count 131 K/UL (150-450) L Mean Platelet Volume 8.3 FL (6.5-10.1) Neutrophils (%) (Auto) 76.1 % (45.0-75.0) H Lymphocytes (%) (Auto) 11.0 % (20.0-45.0) L Monocytes (%) (Auto) 7.6 % (1.0-10.0) Eosinophils (%) (Auto) 4.4 % (0.0-3.0) H Basophils (%) (Auto) 1.0 % (0.0-2.0) Sodium Level 134 MMOL/L (136-145) L Potassium Level 4.8 MMOL/L (3.5-5.1) Chloride Level 97 MMOL/L (98-107) L Carbon Dioxide Level 26 MMOL/L (21-32) Anion Gap 11 mmol/L (5-15) Blood Urea Nitrogen 95 mg/dL (7-18) H Creatinine 8.7 MG/DL (0.55-1.30) H Estimat Glomerular Filtration Rate 7.6 mL/min (>60) Glucose Level 88 MG/DL (74-106) Lactic Acid Level 0.30 mmol/L (0.66-2.22) L Calcium Level 8.9 MG/DL (8.5-10.1) Total Bilirubin 0.5 MG/DL (0.2-1.0) Aspartate Amino Transf (AST/SGOT) 37 U/L (15-37) Alanine Aminotransferase (ALT/SGPT) 75 U/L (12-78) Alkaline Phosphatase 170 U/L (46-116) H Total Creatine Kinase 84 U/L (26-308) Creatine Kinase MB 9.3 NG/ML (0.0-3.6) H Creatine Kinase MB Relative Index 11.0 Troponin I 0.262 ng/mL (0.000-0.056) Pro-B-Type Natriuretic Peptide 60849 pg/mL (0-125) H Total Protein 7.7 G/DL (6.4-8.2) Albumin 3.5 G/DL (3.4-5.0) Globulin 4.2 g/dL Albumin/Globulin Ratio 0.8 (1.0-2.7) L Prothrombin Time 12.6 SEC (9.30-11.50) H Prothromb Time International Ratio 1.2 (0.9-1.1) H Microbiology Date/Time Source Procedure Growth Status 05/23/17 04:30 Nasal Nares Influenza Types A,B Antigen (RELL) - Final Complete Height (Feet): 5 Height (Inches): 7.00 Weight (Pounds): 250 Medications Current Medications Medications (Trade) Dose Ordered Sig/Jose Route PRN Reason Start Time Stop Time Status Last Admin Dose Admin Acetaminophen/ Hydrocodone Bitart ([place] 10/325) 1 tab Q6H PRN ORAL Pain Scale (6-10) 05/23/17 08:45 05/30/17 08:44 Albuterol Sulfate (Proventil) 2.5 mg Q4H PRN HHN Shortness of Breath 05/23/17 08:45 05/28/17 08:44 Alprazolam (Xanax) 2 mg THREE TIMES A DAY ORAL 05/23/17 09:00 05/30/17 08:59 UNV Amlodipine Besylate (Norvasc) 10 mg DAILY ORAL 05/23/17 10:00 06/22/17 09:59 05/23/17 11:23 Aripiprazole (Abilify) 10 mg DAILY ORAL 05/23/17 11:00 06/22/17 10:59 05/23/17 11:21 Aspirin (ASA) 81 mg DAILY ORAL 05/23/17 11:00 06/22/17 10:59 05/23/17 11:21 Bupropion HCl (Wellbutrin) 75 mg THREE TIMES A DAY ORAL 05/23/17 11:00 06/22/17 10:59 Carisoprodol (Soma) 350 mg EVERY 6 HOURS ORAL 05/23/17 12:00 06/22/17 11:59 UNV Carvedilol (Coreg) 25 mg EVERY 12 HOURS ORAL 05/23/17 10:00 06/22/17 09:59 Clonidine HCl (Catapres Tab) 0.1 mg Q4H PRN ORAL For High Blood Pressure 05/23/17 08:45 06/22/17 08:44 Diphenhydramine HCl (Benadryl) 25 mg Q6H PRN ORAL Itching 05/23/17 08:45 06/22/17 08:44 Folic Acid (Folate) 1 mg DAILY ORAL 05/23/17 10:00 06/22/17 09:59 05/23/17 11:24 Irbesartan (Avapro) 150 mg DAILY ORAL 05/23/17 11:00 06/22/17 10:59 05/23/17 11:23 Isosorbide Mononitrate (Imdur) 30 mg DAILY ORAL 05/23/17 11:00 06/22/17 10:59 05/23/17 11:22 Lisinopril (Prinivil) 20 mg DAILY ORAL 05/23/17 11:00 06/22/17 10:59 05/23/17 11:25 Nitroglycerin (Ntg) 0.4 mg Q5M PRN SL Prn Chest Pain 05/23/17 08:45 06/22/17 08:44 Ondansetron HCl (Zofran) 4 mg Q6H PRN IVP Nausea & Vomiting 05/23/17 08:45 06/22/17 08:44 Pantoprazole (Protonix) 40 mg DAILY ORAL 05/23/17 11:00 06/22/17 10:59 05/23/17 11:23 Polyethylene Glycol (Miralax) 17 gm DAILY ORAL 05/23/17 11:00 06/22/17 10:59 Warfarin Sodium (Coumadin per pharmacy) 1 ea DAILY PRN MISC per RX protocol 05/23/17 10:15 06/22/17 10:14 UNV Assessment/Plan Assessment/Plan ASSESSMENT elevated troponin r/o ACS chest pain COPD exacerbation HTN urgency Cardiomyopathy CHF L AICD ESRD, on HD anemia of chronic kidney disease Hx of CVA PLAN OF CARE tele serial troponin ECHO cardio eval lipid panel on ASA, BB prior ECHO with EF 40% medical management with BB, GREGORY BP management with multiple anti-HTN meds nicotine abuse with dependency O2 titrate prn HHN ATC and prn fup with CXR IV steroids and taper empiric abx sputum cx if able trial of theophylline a/tussive prn Nicotine patch on Coumadin? reason monitor INR Venous Duplex BLE HD as pr nephro monitor renal parameters, correct lytes as needed monitor counts, transfuse pn GI prophylaxis pain management bowel regimen case discussed and evaluated by supervising physician Rohan Parsons),Mariela NAVA May 23, 2017 12:22
[2017-05-23] MEDS ORDERED: Albuterol/Ipratropium 3ml neb HHN SCH (13:00)
[2017-05-23] MEDS ORDERED: QUETIAPINE FUM300 MG ORAL (13:20)
[2017-05-23] MEDS ORDERED: ARICEPT23 MG ORAL (13:20)
[2017-05-23] MEDS ORDERED: FERROUS SULFAT500 G1 MC (13:20)
[2017-05-23] MEDS ORDERED: LIPITOR80 MG ORAL (13:20)
--- NOTE | 2017-05-23 14:11 | Cardiology Report ---
APPROVED REPORT EKG Measurement Heart [id number] CO [id number] Normal sinus rhythm Possible Left atrial enlargement Nonspecific T wave abnormality Prolonged QT Abnormal ECG
[2017-05-23] MEDS: HYDROcodone/Acetamin 10/325 tab ORAL PRN (14:42)
[2017-05-23 16:00] VITALS: BP 149/92
--- NOTE | 2017-05-23 18:28 | History & Physical ---
History and Physical History & Physicial Dictated for Int Med-Dr Weinstein no. [id number]. ZOEY PIRES May 23, 2017 18:27
[2017-05-23] MEDS: Solu-MEDROL 125mg Inj IVP SCH (18:56)
[2017-05-23 20:00] VITALS: BP 147/79
[2017-05-23] MEDS: Heparin 5000 units/ml inj SUBQ SCH (21:00)
[2017-05-23] MEDS: Donepezil 5mg Tab ORAL SCH (21:18)
[2017-05-23] MEDS: Atorvastatin 80mg tab ORAL SCH (21:18)
--- NOTE | 2017-05-23 22:30 | History and Physical Report ---
DATE OF ADMISSION: 05/23/2017 CHIEF COMPLAINT: The patient is a 57-year-old male, presents with chief complaint of chest pain. HISTORY OF PRESENT ILLNESS: The patient was admitted to [facility] in March of 2017. Please see History and Physical and discharge summary dictated at that time. The patient states he was admitted to [facility] for pneumonia. The patient was discharged on May. The patient states last evening May 22, 2017 he began to experience chest pain. Chest pain is substernal. There is no radiation to the jaw or to the shoulder. The patient presented to [facility]. The patient admitted for chest pain to rule out acute coronary syndrome. PAST MEDICAL HISTORY: Significant for: 1. Congestive heart failure. 2. End-stage renal disease on hemodialysis every Friday, , and Friday. The patient's last dialysis was May. 3. Hypertension. 4. Chronic obstructive pulmonary disease. PAST SURGICAL HISTORY: Significant for right thoracotomy for unknown reason. CURRENT MEDICATIONS: 1. 2. Albuterol nebulized q.4 h. 3. Xanax 2 mg p.o. three times a day. 4. Amlodipine 10 mg p.o. daily. 5. Abilify 15 mg p.o. daily. 6. Aspirin 81 mg p.o. daily. 7. Lipitor 80 mg p.o. daily. 8. Wellbutrin 100 mg p.o. twice daily. 9. Soma 350 mg p.o. q.6 hours p.r.n. 10. Carvedilol 25 mg p.o. twice daily. 11. 5 mg p.o. at bedtime. 12. Iron sulfate 325 mg p.o. three times daily. 13. Folic acid 1 mg p.o. daily. 14. [place] 10/325 one tablet p.o. q.6 h. p.r.n. 15. Isosorbide mononitrate 30 mg p.o. daily. 16. Lisinopril 20 mg p.o. daily. 17. Claritin 10 mg p.o. daily. 18. Multivitamin p.o. daily. 19. Omeprazole 20 mg p.o. daily. 20. Zofran 4 mg p.o. q.6 hours p.r.n. 21. Seroquel 100 mg p.o. at bedtime. 22. Renagel 800 mg p.o. three times daily. 23. Zocor 20 mg p.o. at bedtime. 24. Spiriva one puff p.o. daily. 25. Diovan 160 mg p.o. daily. 26. Coumadin 5 mg p.o. daily. ALLERGIES: No known drug allergies. SOCIAL HISTORY: The patient is single. The patient admits to tobacco use one quarter pack per day. The patient admits to occasional alcohol use. REVIEW OF SYSTEMS: CONSTITUTIONAL: The patient denies weight loss or weight gain. The patient denies fevers or chills. HEENT: The patient denies ear or throat pain. The patient denies headache. CARDIOVASCULAR: The patient complains of chest pain as above. The patient denies palpitations. CHEST: The patient complains of nonproductive cough. The patient denies wheezes. ABDOMEN: The patient denies nausea, vomiting, diarrhea, or constipation. GENITOURINARY: The patient denies dysuria or increased frequency of urination. NEUROMUSCULAR: The patient denies seizures or generalized weakness. PHYSICAL EXAMINATION: VITAL SIGNS: Temperature 97.2, respirations 20, pulse 92, blood pressure 158/87. GENERAL: The patient is well-developed and well-nourished male, in no apparent distress. HEENT: Eyes, pupils are equal responsive to light and accommodation. Extraocular movements are intact. NECK: Supple without lymphadenopathy. LUNGS: Clear to auscultation bilaterally without wheezes or rales. CARDIOVASCULAR: Regular rate. S1 and S2 are normal without murmurs, rubs, or gallops. ABDOMEN: Soft, nontender, and nondistended. Positive bowel sounds. No evidence of hepatosplenomegaly. Currently, no rebound or guarding noted. EXTREMITIES: Negative for clubbing, cyanosis, or edema. RECTAL/GENITAL: Refused. NEUROLOGIC: Cranial nerves II to XII are grossly intact without focal deficits. Motor strength is 5/5 bilaterally. Deep tendon reflexes are 2+ plantar. LABORATORY AND DIAGNOSTIC DATA: An EKG demonstrated normal sinus rhythm at approximately 85 beats per minute. There are no acute ST changes or Q-waves noted. WBC 5.3, hemoglobin 10.9, hematocrit 35.0, and platelets 131,000. Sodium 134, potassium 4.8, chloride 97, CO2 26, BUN 95, creatinine 8.7, and glucose 88. Troponin 0.262. BNP elevated at 35,901. Chest x-ray revealed cardiomegaly with bilateral pulmonary interstitial edema consistent with congestive heart failure. ASSESSMENT: This is a 57-year-old male. 1. Chest pain. 2. Congestive heart failure. 3. Elevated troponin. 4. History of pneumonia. 5. End-stage renal disease. 6. Chronic obstructive pulmonary disease. 7. Hypertension. TREATMENT: 1. Chest pain/elevated troponin. A Cardiology consultation has been obtained with Dr. Gerry lEy. Serial troponin levels will be performed. We will follow recommendations of Cardiology, Dr. Ely. 2. Congestive heart failure. A echocardiogram is pending. As above, a Cardiology consultation obtained with Dr. Gerry Ely. 3. End-stage renal disease. A Nephrology consultation has been obtained with Dr. Saha. The patient is due for dialysis on Wednesday May 24, 2017. 4. Chronic obstructive pulmonary disease. A Pulmonary consultation obtained with Dr. Christine Morgan. 5. Hypertension. Continue Diovan as above. Ellis Calloway M.D. DR: Swathi JOB#: [id number] CC:
[2017-05-23] MEDS: Calcium Acetate 667mg Tab ORAL SCH (22:31)
--- NOTE | 2017-05-23 23:52 | Cardiology Progress Note ---
Assessment/Plan Assessment/Plan The patient is seen and examined, full consult note will be dictated shortly. Objective Last 24 Hour Vital Signs Date Time Temp Pulse Resp B/P (MAP) Pulse Ox O2 Delivery O2 Flow Rate FiO2 05/23/17 21:18 87 149/92 05/23/17 20:00 87 05/23/17 20:00 97.3 85 18 147/79 98 Nasal Cannula 05/23/17 16:00 87 05/23/17 16:00 97.2 88 20 149/92 98 Nasal Cannula 05/23/17 14:18 82 22 95 Nasal Cannula 2.0 28 05/23/17 14:07 85 22 92 Nasal Cannula 2.0 28 05/23/17 12:00 97.2 92 20 158/87 100 05/23/17 12:00 96 05/23/17 11:25 181/101 05/23/17 11:23 181/101 05/23/17 11:23 79 181/101 05/23/17 11:22 181/101 05/23/17 10:00 79 181/101 05/23/17 08:00 87 05/23/17 07:58 97.6 92 14 177/99 100 Room Air 3.0 21 207.7 85 05/23/17 07:05 97.6 05/23/17 06:30 85 14 177/99 100 Room Air 05/23/17 05:17 91 18 98 Room Air 21 05/23/17 05:08 89 24 Room Air 21 05/23/17 05:07 21 05/23/17 05:00 89 24 93 Room Air 21 05/23/17 04:30 187/96 05/23/17 04:27 97.6 92 31 187/96 91 Nasal Cannula 3.0 97.6 05/23/17 04:10 92 18 Room Air 05/23/17 03:59 97.8 92 18 204/113 98 Room Air 97.9 Intake and Output 05/22/17 05/23/17 19:00 07:00 Intake Total 0 ml Balance 0 ml Intake Oral 0 ml Laboratory Tests Test 05/23/17 04:30 05/23/17 10:55 05/23/17 12:00 White Blood Count 5.3 K/UL (4.8-10.8) Red Blood Count 3.85 M/UL (4.70-6.10) L Hemoglobin 10.9 G/DL (14.2-18.0) L Hematocrit 35.0 % (42.0-52.0) L Mean Corpuscular Volume 91 FL (80-99) Mean Corpuscular Hemoglobin 28.2 PG (27.0-31.0) Mean Corpuscular Hemoglobin Concent 31.0 G/DL (32.0-36.0) L Red Cell Distribution Width 16.9 % (11.6-14.8) H Platelet Count 131 K/UL (150-450) L Mean Platelet Volume 8.3 FL (6.5-10.1) Neutrophils (%) (Auto) 76.1 % (45.0-75.0) H Lymphocytes (%) (Auto) 11.0 % (20.0-45.0) L Monocytes (%) (Auto) 7.6 % (1.0-10.0) Eosinophils (%) (Auto) 4.4 % (0.0-3.0) H Basophils (%) (Auto) 1.0 % (0.0-2.0) Sodium Level 134 MMOL/L (136-145) L Potassium Level 4.8 MMOL/L (3.5-5.1) Chloride Level 97 MMOL/L (98-107) L Carbon Dioxide Level 26 MMOL/L (21-32) Anion Gap 11 mmol/L (5-15) Blood Urea Nitrogen 95 mg/dL (7-18) H Creatinine 8.7 MG/DL (0.55-1.30) H Estimat Glomerular Filtration Rate 7.6 mL/min (>60) Glucose Level 88 MG/DL (74-106) Lactic Acid Level 0.30 mmol/L (0.66-2.22) L Calcium Level 8.9 MG/DL (8.5-10.1) Total Bilirubin 0.5 MG/DL (0.2-1.0) Aspartate Amino Transf (AST/SGOT) 37 U/L (15-37) Alanine Aminotransferase (ALT/SGPT) 75 U/L (12-78) Alkaline Phosphatase 170 U/L (46-116) H Total Creatine Kinase 84 U/L (26-308) Creatine Kinase MB 9.3 NG/ML (0.0-3.6) H Creatine Kinase MB Relative Index 11.0 Troponin I 0.262 ng/mL (0.000-0.056) 0.259 ng/mL (0.000-0.056) Pro-B-Type Natriuretic Peptide 20883 pg/mL (0-125) H Total Protein 7.7 G/DL (6.4-8.2) Albumin 3.5 G/DL (3.4-5.0) Globulin 4.2 g/dL Albumin/Globulin Ratio 0.8 (1.0-2.7) L Prothrombin Time 12.6 SEC (9.30-11.50) H Prothromb Time International Ratio 1.2 (0.9-1.1) H Microbiology Date/Time Source Procedure Growth Status 05/23/17 04:30 Nasal Nares Influenza Types A,B Antigen (RELL) - Final Complete JERO MANZO May 23, 2017 23:52
[2017-05-24] VITALS (7 sets, daily range): BP systolic 88–153; BP diastolic 67–92
[2017-05-24] MEDS: HYDROcodone/Acetamin 10/325 tab ORAL PRN ×2 (00:26→09:11)
[2017-05-24] MEDS: Solu-MEDROL 125mg Inj IVP SCH ×4 (00:26→22:00)
[2017-05-24] MEDS: Calcium Acetate 667mg Tab ORAL SCH ×3 (06:24→22:00)
[2017-05-24 08:36] LABS: HEMATOCRIT 31.7 % (42.0-52.0); HEMOGLOBIN 9.9 G/DL (14.2-18.0); MEAN CORPUSCULAR VOLUME 91 FL (80-99); PLATELET COUNT 111 K/UL (150-450); RED BLOOD COUNT 3.47 M/UL (4.70-6.10); RED CELL DISTRIBUTION WIDTH 16.8 % (11.6-14.8); WHITE BLOOD COUNT 4.6 K/UL (4.8-10.8)
[2017-05-24] MEDS ORDERED: Theophylline ER 100mg ORAL SCH (09:00)
[2017-05-24] MEDS: Carvedilol 25mg Tab ORAL SCH ×2 (09:00→21:31)
[2017-05-24] MEDS: Heparin 5000 units/ml inj SUBQ SCH ×2 (09:00→21:00)
[2017-05-24] MEDS: Lisinopril 20mg tab ORAL SCH (09:00)
[2017-05-24] MEDS: Aspirin Baby 81mg ORAL SCH (09:03)
[2017-05-24] MEDS: Theophylline ER 100mg ORAL SCH (09:03)
[2017-05-24 09:04] LABS: ALANINE AMINOTRANSFERASE 57 U/L (12-78); ALBUMIN 3.1 G/DL (3.4-5.0); ALBUMIN/GLOBULIN RATIO 0.8 (1.0-2.7); ALKALINE PHOSPHATASE 155 U/L (46-116); ANION GAP 15 mmol/L (5-15); ASPARTATE AMINO TRANSFERASE 25 U/L (15-37); BILIRUBIN,TOTAL 0.5 MG/DL (0.2-1.0); BLOOD UREA NITROGEN 115 mg/dL (7-18); CALCIUM 8.6 MG/DL (8.5-10.1); CARBON DIOXIDE 24 MMOL/L (21-32); CHLORIDE 97 MMOL/L (98-107); CHOLESTEROL 157 MG/DL (< 200); HDL CHOLESTEROL 94 MG/DL (40-60); PHOSPHORUS > 9.0 MG/DL (2.5-4.9); SODIUM 135 MMOL/L (136-145); TRIGLYCERIDES 29 MG/DL (30-150)
[2017-05-24] MEDS: ARIPiprazole 10mg tab ORAL SCH (09:04)
[2017-05-24 09:21] LABS: POTASSIUM 6.4 MMOL/L (3.5-5.1)
[2017-05-24 09:24] LABS: CREATINE KINASE 65 U/L (26-308); GAMMA GLUTAMYL TRANSPEPTIDASE 175 U/L (5-85)
--- NOTE | 2017-05-24 10:10 | Consultation ---
Consult Note Consult Note asked to eval patient for dialysis management by Dr Craft 57-year-old male presents ED for evaluation. Patient complaining of chest pain. Started 2 hours prior to arrival. Started at rest. Pressure, 8/10, nonradiating. History of end-stage renal disease on dialysis. Dialysis yesterday. Denies fevers or chills. Notes cough which is productive. States he was recently discharged from another hospital for "pneumonia or flu". No other aggravating relieving factors. Denies any other associated symptoms Past Medical History: renal disease, dialysis Hx Cardiac Problems: Yes Hx Hypertension: Yes Hx Asthma: Yes Hx COPD: Yes Hx Diabetes: Yes Hx Gastrointestinal Problems: Yes - Gall bladder stones Hx Dialysis: Yes Hx Seizures: Yes interviewed examined data reviewed Assessment/Plan Assessment/Plan elevated troponin r/o ACS chest pain COPD exacerbation HTN urgency Cardiomyopathy CHF L AICD ESRD, on HD anemia of chronic kidney disease Hx of CVA Plan: Due HD today- One dose Kayexelate- Phos binders Monitor lytes and HD as needed Optimize cardiac status LIAM MONTELONGO May 24, 2017 10:10
--- NOTE | 2017-05-24 10:11 | Pulmonology Progress Note ---
Assessment/Plan Assessment/Plan ASSESSMENT elevated troponin chest pain COPD exacerbation HTN urgency Cardiomyopathy CHF L AICD ESRD, on HD anemia of chronic kidney disease Hx of CVA PLAN OF CARE tele serial troponin with mild elevation, levels flat ECHO with EF 50-55% with global LV hypokinesis and RVSP of 53 c/w moderate pulm HTN cardio eval noted, likely troponin leak 2 to ESRD ECG lipid panel pillo on ASA, BB prior ECHO with EF 40% medical management with BB, GREGORY BP management with multiple anti-HTN meds nicotine abuse with dependency O2 titrate prn HHN ATC and prn fup with CXR IV steroids and taper empiric abx sputum cx if able trial of theophylline a/tussive prn Nicotine patch on Coumadin? reason monitor INR Venous Duplex BLE HD as pr nephro K-6.4, HD today monitor renal parameters, correct lytes as needed monitor counts, transfuse pn GI prophylaxis pain management bowel regimen case discussed and evaluated by supervising physician Subjective Allergies: Coded Allergies: No Known Allergies (Unverified , 10/24/15) Subjective no chest pain, on o2 via NC, still intermittent SOB with wheezing and chest tightness , cough, dry, no hemoptysis Objective Last 24 Hour Vital Signs Date Time Temp Pulse Resp B/P (MAP) Pulse Ox O2 Delivery O2 Flow Rate FiO2 05/24/17 04:00 97.3 70 18 149/67 97 Nasal Cannula 05/24/17 04:00 78 05/24/17 00:00 78 05/24/17 00:00 97.5 74 20 153/92 98 Nasal Cannula 05/23/17 21:18 87 149/92 05/23/17 20:00 87 05/23/17 20:00 97.3 85 18 147/79 98 Nasal Cannula 05/23/17 16:00 87 05/23/17 16:00 97.2 88 20 149/92 98 Nasal Cannula 05/23/17 14:18 82 22 95 Nasal Cannula 2.0 28 05/23/17 14:07 85 22 92 Nasal Cannula 2.0 28 05/23/17 12:00 97.2 92 20 158/87 100 05/23/17 12:00 96 05/23/17 11:25 181/101 05/23/17 11:23 181/101 05/23/17 11:23 79 181/101 05/23/17 11:22 181/101 Intake and Output 05/23/17 05/24/17 19:00 07:00 Intake Total 536 ml 400 ml Output Total 500 ml Balance 36 ml 400 ml Intake Oral 536 ml 400 ml Output Urine Total 500 ml # Voids 2 Objective General Appearance: A/A/O x 4 AA male NAD Lines, tubes and drains: peripheral HEENT: normocephalic, atraumatic, anicteric, mucous membranes moist, PERRL Neck: supple Respiratory/Chest: decreased breath sounds, few scattered exp wheezes , L chest AICD Cardiovascular/Chest: normal rate, regular rhythm - SR on tele, L AV shunt + bruit/thrill Abdomen: normal bowel sounds, non tender, soft - obese Skin Exam: warm/dry Neurologic: alert Musculoskeletal: normal muscle bulk Microbiology Date/Time Source Procedure Growth Status 05/23/17 04:30 Nasal Nares Influenza Types A,B Antigen (RELL) - Final Complete Laboratory Tests 05/23/17 10:55: Prothrombin Time 12.6H, Prothromb Time International Ratio 1.2H 05/23/17 12:00: Troponin I 0.259H 05/24/17 06:40: Troponin I 0.163H, White Blood Count 4.6L, Red Blood Count 3.47L, Hemoglobin 9.9L, Hematocrit 31.7L, Mean Corpuscular Volume 91, Mean Corpuscular Hemoglobin 28.4, Mean Corpuscular Hemoglobin Concent 31.1L, Red Cell Distribution Width 16.8H, Platelet Count 111L, Mean Platelet Volume 7.9, Neutrophils (%) (Auto) , Lymphocytes (%) (Auto) , Monocytes (%) (Auto) , Eosinophils (%) (Auto) , Basophils (%) (Auto) , Differential Total Cells Counted 100, Neutrophils % ( Manual) 94H, Lymphocytes % (Manual) 6L, Monocytes % (Manual) 0L, Eosinophils % ( Manual) 0, Basophils % (Manual) 0, Band Neutrophils 0, Platelet Estimate DecreasedL, Platelet Morphology Normal, Hypochromasia 1+, Anisocytosis 1+, Sodium Level 135L, Potassium Level 6.4*H, Chloride Level 97L, Carbon Dioxide Level 24, Anion Gap 15, Blood Urea Nitrogen 115H, Creatinine 11.0H, Estimat Glomerular Filtration Rate 5.8, Glucose Level 139H, Hemoglobin A1c 5.7, Uric Acid 7.3H, Calcium Level 8.6, Phosphorus Level > 9.0H, Magnesium Level 2.4, Total Bilirubin 0.5, Gamma Glutamyl Transpeptidase 175H, Aspartate Amino Transf (AST/SGOT) 25, Alanine Aminotransferase (ALT/SGPT) 57, Alkaline Phosphatase 155H , Total Creatine Kinase 65, Pro-B-Type Natriuretic Peptide > 62229N, Total Protein 7.0, Albumin 3.1L, Globulin 3.9, Albumin/Globulin Ratio 0.8L, Triglycerides Level 29L, Cholesterol Level 157, LDL Cholesterol 63, HDL Cholesterol 94H, Cholesterol/HDL Ratio 1.7L, Thyroid Stimulating Hormone (TSH) 0.251L Current Medications Medications (Trade) Dose Ordered Sig/Jose Route PRN Reason Start Time Stop Time Status Last Admin Dose Admin Acetaminophen/ Hydrocodone Bitart ([place] 10/325) 1 tab Q6H PRN ORAL Pain Scale (6-10) 05/23/17 08:45 05/30/17 08:44 05/24/17 09:11 Albuterol/ Ipratropium (Albuterol/ Ipratropium) 3 ml Q4H PRN HHN Shortness of Breath 05/23/17 12:15 05/28/17 12:14 Amlodipine Besylate (Norvasc) 10 mg DAILY ORAL 05/23/17 10:00 06/22/17 09:59 05/23/17 11:23 Aripiprazole (Abilify) 10 mg DAILY ORAL 05/23/17 11:00 06/22/17 10:59 05/24/17 09:04 Aspirin (ASA) 81 mg DAILY ORAL 05/23/17 11:00 06/22/17 10:59 05/24/17 09:03 Atorvastatin Calcium (Lipitor) 80 mg QHS ORAL 05/23/17 21:00 06/22/17 20:59 05/23/17 21:18 Bupropion HCl (Wellbutrin) 100 mg BID ORAL 05/23/17 18:00 06/22/17 17:59 05/24/17 09:03 Calcium Acetate (Phoslo) 667 mg EVERY 8 HOURS ORAL 05/23/17 22:00 06/22/17 21:59 05/24/17 06:24 Carvedilol (Coreg) 25 mg EVERY 12 HOURS ORAL 05/23/17 10:00 06/22/17 09:59 05/23/17 21:18 Clonidine HCl (Catapres Tab) 0.1 mg Q4H PRN ORAL For High Blood Pressure 05/23/17 08:45 06/22/17 08:44 Diphenhydramine HCl (Benadryl) 25 mg Q6H PRN ORAL Itching 05/23/17 08:45 06/22/17 08:44 Donepezil HCl (Aricept) 5 mg QHS ORAL 05/23/17 21:00 06/22/17 20:59 05/23/17 21:18 Ferrous Sulfate (Feosol) 325 mg THREE TIMES A DAY ORAL 05/23/17 18:00 06/22/17 17:59 05/24/17 09:03 Folic Acid (Folate) 1 mg DAILY ORAL 05/23/17 10:00 06/22/17 09:59 05/24/17 09:03 Heparin Sodium (Porcine) (Heparin 5000 units/ml) 5,000 units EVERY 12 HOURS SUBQ 05/23/17 21:00 06/22/17 20:59 Levofloxacin (Levaquin) 250 mg Q48H ORAL 05/25/17 09:00 06/01/17 08:59 Lisinopril (Prinivil) 40 mg DAILY ORAL 05/24/17 09:00 06/23/17 08:59 Methylprednisolone Sodium Succinate (Solu-MEDROL) 60 mg EVERY 6 HOURS IVP 05/23/17 18:00 06/22/17 17:59 05/24/17 06:24 Nicotine (Nicoderm) 1 patch Q24H TDERMAL 05/23/17 13:00 06/22/17 12:59 05/23/17 14:32 Nitroglycerin (Ntg) 0.4 mg Q5M PRN SL Prn Chest Pain 05/23/17 08:45 06/22/17 08:44 Ondansetron HCl (Zofran) 4 mg Q6H PRN IVP Nausea & Vomiting 05/23/17 08:45 06/22/17 08:44 Pantoprazole (Protonix) 40 mg DAILY ORAL 05/23/17 11:00 06/22/17 10:59 05/24/17 09:03 Promethazine HCl/ Codeine (Phenergan with Codeine) 5 ml Q4H PRN ORAL For Cough 05/23/17 12:15 06/22/17 12:14 Quetiapine Fumarate (SEROquel) 100 mg DAILY ORAL 05/24/17 09:00 06/23/17 08:59 05/24/17 09:03 Theophylline (Moe-Dur) 100 mg DAILY ORAL 05/24/17 09:00 06/23/17 08:59 05/24/17 09:03 Rohan ([facility])Mariela NP May 24, 2017 10:11
[2017-05-24] MEDS ORDERED: Sodium Polystyrene Sulfonate 15gm Powder ORAL ONE (10:15)
[2017-05-24] MEDS: Promethazine/Codeine 5ml UD ORAL PRN ×2 (11:27→17:36)
--- NOTE | 2017-05-24 11:31 | Diagnostic Imaging Report ---
Indication: Dyspnea Comparison: 05/23/2017 A single view chest radiograph was obtained. Findings: Pulmonary edema is again demonstrated marginally improved. Moderate cardiomegaly and pacemaker are again noted. IMPRESSION: CHF. Marginal improvement
[2017-05-24] MEDS: Docusate 100mg cap ORAL SCH ×2 (12:14→17:42)
--- NOTE | 2017-05-24 12:39 | Internal Med Progress Note ---
Subjective Date of Service: May 24, 2017 Physician Name Zoey Pires Attending Physician Chaitanya Weinstein MD Current Medications Medications (Trade) Dose Ordered Sig/Jose Route PRN Reason Start Time Stop Time Status Last Admin Dose Admin Acetaminophen/ Hydrocodone Bitart ([place] 10/325) 1 tab Q6H PRN ORAL Pain Scale (6-10) 05/23/17 08:45 05/30/17 08:44 05/24/17 09:11 Albuterol/ Ipratropium (Albuterol/ Ipratropium) 3 ml Q4H PRN HHN Shortness of Breath 05/23/17 12:15 05/28/17 12:14 Amlodipine Besylate (Norvasc) 10 mg DAILY ORAL 05/23/17 10:00 06/22/17 09:59 05/23/17 11:23 Aripiprazole (Abilify) 10 mg DAILY ORAL 05/23/17 11:00 06/22/17 10:59 05/24/17 09:04 Aspirin (ASA) 81 mg DAILY ORAL 05/23/17 11:00 06/22/17 10:59 05/24/17 09:03 Atorvastatin Calcium (Lipitor) 80 mg QHS ORAL 05/23/17 21:00 06/22/17 20:59 05/23/17 21:18 Bupropion HCl (Wellbutrin) 100 mg BID ORAL 05/23/17 18:00 06/22/17 17:59 05/24/17 09:03 Calcium Acetate (Phoslo) 667 mg EVERY 8 HOURS ORAL 05/23/17 22:00 06/22/17 21:59 05/24/17 06:24 Carvedilol (Coreg) 25 mg EVERY 12 HOURS ORAL 05/23/17 10:00 06/22/17 09:59 05/23/17 21:18 Clonidine HCl (Catapres Tab) 0.1 mg Q4H PRN ORAL For High Blood Pressure 05/23/17 08:45 06/22/17 08:44 Diphenhydramine HCl (Benadryl) 25 mg Q6H PRN ORAL Itching 05/23/17 08:45 06/22/17 08:44 Docusate Sodium (Colace) 100 mg THREE TIMES A DAY ORAL 05/24/17 13:00 06/23/17 12:59 Donepezil HCl (Aricept) 5 mg QHS ORAL 05/23/17 21:00 06/22/17 20:59 05/23/17 21:18 Folic Acid (Folate) 1 mg DAILY ORAL 05/23/17 10:00 06/22/17 09:59 05/24/17 09:03 Heparin Sodium (Porcine) (Heparin 5000 units/ml) 5,000 units EVERY 12 HOURS SUBQ 05/23/17 21:00 06/22/17 20:59 Levofloxacin (Levaquin) 500 mg Q48H ORAL 05/25/17 09:00 06/01/17 23:59 Lisinopril (Prinivil) 40 mg DAILY ORAL 05/24/17 09:00 06/23/17 08:59 Methylprednisolone Sodium Succinate (Solu-MEDROL) 60 mg Q8HR IVP 05/24/17 14:00 06/22/17 17:59 Nicotine (Nicoderm) 1 patch Q24H TDERMAL 05/23/17 13:00 06/22/17 12:59 05/24/17 12:17 Nitroglycerin (Ntg) 0.4 mg Q5M PRN SL Prn Chest Pain 05/23/17 08:45 06/22/17 08:44 Nitroglycerin (Ntg) 1 patch Q24H TDERMAL 05/24/17 10:15 06/23/17 10:14 Ondansetron HCl (Zofran) 4 mg Q6H PRN IVP Nausea & Vomiting 05/23/17 08:45 06/22/17 08:44 Pantoprazole (Protonix) 40 mg BID ORAL 05/24/17 18:00 06/22/17 10:59 Promethazine HCl/ Codeine (Phenergan with Codeine) 5 ml Q4H PRN ORAL For Cough 05/23/17 12:15 06/22/17 12:14 05/24/17 11:27 Quetiapine Fumarate (SEROquel) 100 mg DAILY ORAL 05/24/17 09:00 06/23/17 08:59 05/24/17 09:03 Sevelamer Carbonate (Renvela) 2,400 mg THREE TIMES A DAY ORAL 05/24/17 13:00 06/23/17 12:59 05/24/17 12:17 Theophylline (Moe-Dur) 100 mg DAILY ORAL 05/24/17 09:00 06/23/17 08:59 05/24/17 09:03 Allergies: Coded Allergies: No Known Allergies (Unverified , 10/24/15) ROS Limited/Unobtainable: No Constitutional: Reports: no symptoms HEENT: Reports: no symptoms Cardiovascular: Reports: chest pain Respiratory: Reports: no symptoms Gastrointestinal/Abdominal: Reports: no symptoms Genitourinary: Reports: no symptoms Neurologic/Psychiatric: Reports: no symptoms Subjective 57 YO M admitted with chest pain. Now elevated troponin. Cover for Int Med Dr Weinstein. Objective Last Vital Signs Date Time Temp Pulse Resp B/P (MAP) Pulse Ox O2 Delivery O2 Flow Rate FiO2 05/24/17 08:00 96.6 79 18 141/88 97 Nasal Cannula 05/23/17 14:18 2.0 28 General Appearance: WD/WN, no apparent distress, alert EENT: PERRL/EOMI, normal ENT inspection Neck: non-tender, normal alignment, supple, normal inspection Cardiovascular: normal peripheral pulses, normal rate, regular rhythm, no gallop/murmur, no JVD Respiratory/Chest: chest wall non-tender, lungs clear, normal breath sounds, no respiratory distress, no accessory muscle use Abdomen: normal bowel sounds, non tender, soft, no organomegaly, no mass Extremities: normal range of motion, non-tender 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: land inspector 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, no motor/sensory deficits Skin: normal pigmentation, warm/dry Laboratory Tests Test 05/24/17 06:40 White Blood Count 4.6 K/UL (4.8-10.8) L Red Blood Count 3.47 M/UL (4.70-6.10) L Hemoglobin 9.9 G/DL (14.2-18.0) L Hematocrit 31.7 % (42.0-52.0) L Mean Corpuscular Volume 91 FL (80-99) Mean Corpuscular Hemoglobin 28.4 PG (27.0-31.0) Mean Corpuscular Hemoglobin Concent 31.1 G/DL (32.0-36.0) L Red Cell Distribution Width 16.8 % (11.6-14.8) H Platelet Count 111 K/UL (150-450) L Mean Platelet Volume 7.9 FL (6.5-10.1) Neutrophils (%) (Auto) % (45.0-75.0) Lymphocytes (%) (Auto) % (20.0-45.0) Monocytes (%) (Auto) % (1.0-10.0) Eosinophils (%) (Auto) % (0.0-3.0) Basophils (%) (Auto) % (0.0-2.0) Differential Total Cells Counted 100 Neutrophils % (Manual) 94 % (45-75) H Lymphocytes % (Manual) 6 % (20-45) L Monocytes % (Manual) 0 % (1-10) L Eosinophils % (Manual) 0 % (0-3) Basophils % (Manual) 0 % (0-2) Band Neutrophils 0 % (0-8) Platelet Estimate Decreased L Platelet Morphology Normal Hypochromasia 1+ Anisocytosis 1+ Sodium Level 135 MMOL/L (136-145) L Potassium Level 6.4 MMOL/L (3.5-5.1) *H Chloride Level 97 MMOL/L (98-107) L Carbon Dioxide Level 24 MMOL/L (21-32) Anion Gap 15 mmol/L (5-15) Blood Urea Nitrogen 115 mg/dL (7-18) H Creatinine 11.0 MG/DL (0.55-1.30) H Estimat Glomerular Filtration Rate 5.8 mL/min (>60) Glucose Level 139 MG/DL (74-106) H Hemoglobin A1c 5.7 % (4.3-6.0) Uric Acid 7.3 MG/DL (2.6-7.2) H Calcium Level 8.6 MG/DL (8.5-10.1) Phosphorus Level > 9.0 MG/DL (2.5-4.9) H Magnesium Level 2.4 MG/DL (1.8-2.4) Total Bilirubin 0.5 MG/DL (0.2-1.0) Gamma Glutamyl Transpeptidase 175 U/L (5-85) H Aspartate Amino Transf (AST/SGOT) 25 U/L (15-37) Alanine Aminotransferase (ALT/SGPT) 57 U/L (12-78) Alkaline Phosphatase 155 U/L (46-116) H Total Creatine Kinase 65 U/L (26-308) Troponin I 0.163 ng/mL (0.000-0.056) C-Reactive Protein, Quantitative 1.0 mg/dL (0.00-0.90) H Pro-B-Type Natriuretic Peptide > 87786 pg/mL (0-125) H Total Protein 7.0 G/DL (6.4-8.2) Albumin 3.1 G/DL (3.4-5.0) L Globulin 3.9 g/dL Albumin/Globulin Ratio 0.8 (1.0-2.7) L Triglycerides Level 29 MG/DL (30-150) L Cholesterol Level 157 MG/DL (< 200) LDL Cholesterol 63 mg/dL (<100) HDL Cholesterol 94 MG/DL (40-60) H Cholesterol/HDL Ratio 1.7 (3.3-4.4) L Thyroid Stimulating Hormone (TSH) 0.251 uiU/mL (0.358-3.740) Microbiology Date/Time Source Procedure Growth Status 05/23/17 04:25 Blood Blood Culture - Preliminary NO GROWTH AFTER 24 HOURS Resulted 05/23/17 04:10 Blood Blood Culture - Preliminary NO GROWTH AFTER 24 HOURS Resulted 05/23/17 04:30 Nasal Nares Influenza Types A,B Antigen (RELL) - Final Complete Intake and Output 05/23/17 05/24/17 19:00 07:00 Intake Total 536 ml 400 ml Output Total 500 ml Balance 36 ml 400 ml Intake Oral 536 ml 400 ml Output Urine Total 500 ml # Voids 2 Assessment/Plan Problem List: (1) COPD (chronic obstructive pulmonary disease) Assessment & Plan: See pulm note. (2) HTN (hypertension) Assessment & Plan: Cont norvasc, coreg and clonidine. (3) CHF (congestive heart failure) Assessment & Plan: ?volume overload?-see cardiology note. (4) Chest pain (5) Elevated troponin Assessment & Plan: See cardiology note. (6) ESRD (end stage renal disease) on dialysis (7) Purulent bronchitis Assessment & Plan: H/O pneumonia. Cont levaquim per pulmonary Status: not improved ZOEY PIRES May 24, 2017 12:39
[2017-05-24] MEDS: Nitroglycerin Patch 0.4mg TDERMAL SCH (12:51)
[2017-05-24] MEDS ORDERED: ALPRAZolam 0.5mg tab ORAL PRN (14:00)
[2017-05-24] MEDS: Albuterol/Ipratropium 3ml neb HHN SCH ×3 (15:40→23:18)
[2017-05-24] MEDS: Donepezil 5mg Tab ORAL SCH (21:32)
[2017-05-24] MEDS: Atorvastatin 80mg tab ORAL SCH (21:32)
--- NOTE | 2017-05-24 21:45 | Consultation ---
DATE OF CONSULTATION: 05/23/2017 CARDIOLOGY CONSULTATION CONSULTING PHYSICIAN: Marin Bernabe M.D. REFERRING PHYSICIAN: Chaitanya Weinstein M.D. ADDITIONAL REFERRING PHYSICIAN: Ellis Calloway M.D. REASON FOR CONSULTATION: Management of elevated troponin I level as well as chest pain. HISTORY OF PRESENT ILLNESS: The patient is a very unfortunate 57-year-old gentleman, who presented to the emergency department with pleuritic chest pain, worse with coughing, associated productive cough of yellowish and greenish sputum that occurred just about two hours prior to arrival to the hospital. The chest pain is constant at rest and with exertion in the left precordial area, 8/10, nonradiating. The patient has risk factors for coronary artery disease including hypertension, diabetes mellitus, history of cerebrovascular event and end-stage renal disease. A 12-lead electrocardiogram in the emergency department did not show any acute ischemic features. He showed normal sinus rhythm. His cardiac history is also significant for possible history of cardiomyopathy as the patient has received a single-chamber automatic implantable cardioverter-defibrillator. PAST MEDICAL HISTORY: 1. Asthma/COPD. 2. Seizures. 3. End-stage renal disease, on dialysis. 4. Hypertension. 5. Diabetes mellitus. 6. Cerebrovascular accident. 7. Possible severe cardiomyopathy, status post AICD implantation. 8. History of congestive heart failure. PAST SURGICAL HISTORY: 1. Left upper arm shunt placement. 2. AICD implantation. MEDICATIONS: List of the medications includes albuterol 3 mL inhaler q.4 h. p.r.n. shortness of breath, Xanax 2 mg three times a day, amlodipine 10 mg p.o. daily, Abilify 15 mg p.o. daily, aspirin 81 mg p.o. daily, Lipitor 80 mg p.o. nightly, bupropion 100 mg p.o. twice daily, Soma 350 mg q.6 h., carvedilol 25 mg q.12 h., Benadryl 25 mg q.6 h. p.r.n. itching, Aricept 5 mg p.o. daily, ferrous sulfate 325 mg q.8 h., folic acid 1 mg p.o. daily, hydrocodone and acetaminophen 10/325 mg one tablet q.6 h. daily, isosorbide mononitrate 30 mg p.o. daily, lisinopril 20 mg p.o. daily, loratadine 10 mg p.o. daily, multivitamin one tablet p.o. daily, nitroglycerin 0.4 mg sublingually every five minutes as needed for chest pain, omeprazole 20 mg p.o. daily, Zofran 4 mg q.6 h. p.r.n. nausea and vomiting, MiraLax 17 g p.o. daily, Seroquel 100 mg p.o. daily, Renagel 800 mg three times a day, Zocor 10 mg p.o. nightly, Spiriva one puff inhaled daily, valsartan 160 mg p.o. daily, and warfarin 5 mg p.o. daily. ALLERGIES: No known drug allergies. SOCIAL HISTORY: The patient denies any tobacco, alcohol, or illicit drug use. REVIEW OF SYSTEMS: A 12-system review done, essentially negative except what mentioned in the history of present illness. PHYSICAL EXAMINATION: VITAL SIGNS: Blood pressure was 204/113, pulse of 92, respirations of 18, O2 saturation 98% on room air, temperature 97.8 degrees Fahrenheit, and O2 saturation 98% on room air. GENERAL: The patient is a very unfortunate 57-year-old black [place], in no apparent respiratory distress. Alert and oriented x4. HEENT: Atraumatic and normocephalic. Anicteric. Pupils are equal, round, and reactive to light and accommodation. Conjunctival pallor is present. NECK: JVP cannot be assessed. No carotid bruit. CVS: Normal S1 and S2. Positive S3. A 2/6 mid systolic murmur at the left sternal border. PMI is at fourth intercostal space in the midclavicular line. LUNGS: Bilateral crackles in both bases. ABDOMEN: Soft, nontender, and nondistended. No hepatosplenomegaly. Positive bowel sounds. EXTREMITIES: No evidence of edema, clubbing, or cyanosis. LABORATORY FINDINGS: WBC 5.3, hemoglobin of 10.9, hematocrit of 35.0, and platelet count is 131,000. Sodium is 134, potassium is 4.8, chloride 97, bicarbonate 26, BUN 95, creatinine 8.7, glucose is 88, and calcium is 8.9. Troponin I is 0.25. ProBNP was 35,901. INR is 1.2. A 12-lead electrocardiogram on this patient shows sinus rhythm at a rate of 88 with left axis deviation, left atrial enlargement, and nonspecific ST and T-wave abnormalities. No evidence of acute ischemic features. Chest x-ray shows cardiomegaly, single AICD lead at the RV apex, bilateral interstitial edema as well as pulmonary edema consistent with congestive heart failure, small right pleural effusion. ASSESSMENT AND PLAN: The patient is a very unfortunate 57-year-old gentleman, who is seen in Cardiology consultation at the request of Dr. Weinstein/ Dr. Calloway. 1. Chest pain in this patient, most likely the remainder of the pneumonia that he had prior to admission to this hospital. He has productive cough. Chest pain is worsened with his cough and is constant. Despite the fact that his troponin I level is slightly elevated, the chest pain does not appear to be ischemic in origin. In view of his risk factors of diabetes mellitus and hypertension, I would however consider pharmacological myocardial perfusion imaging study on Friday to rule out obstructive coronary artery disease. 2. Elevated troponin I level in this patient. It is most likely due to troponin leak due to end-stage renal disease. There are no ECG changes of ischemia. We will order 2D echocardiography to assess regional left ventricular wall motion. 3. Further diagnostic and therapeutic decision will be based on the results of this study. 4. The patient will benefit from aspirin. He was already on high intensity statin, which will be continued. 5. Possible acute congestive heart failure as chest x-ray shows pulmonary edema. There is presence of S3 on the physical examination. The patient requires to be on more aggressive hemodialysis with more fluid withdrawal. We will make sure that we have adequate afterload reduction in this patient as well. I would like to use a combination of hydralazine and Isordil as well as GREGORY inhibitor/ARBs for this matter. Calcium channel jasson with negative inotropic activities will be discontinued once systolic dysfunction is confirmed with echocardiography. I would like to thank, Dr. Calloway/ Dr. Weinstein for the courtesy of this consultation. Marin Bernabe M.D. DR: Feliz JOB#: [id number] CC:
[2017-05-25] VITALS: BP 129/78
[2017-05-25] MEDS: Albuterol/Ipratropium 3ml neb HHN SCH ×6 (03:40→22:33)
[2017-05-25 04:00] VITALS: BP 132/84
[2017-05-25] MEDS: Calcium Acetate 667mg Tab ORAL SCH ×3 (06:01→21:06)
[2017-05-25] MEDS: Solu-MEDROL 125mg Inj IVP SCH ×2 (06:01→21:06)
[2017-05-25 07:37] LABS: HEMATOCRIT 28.6 % (42.0-52.0); HEMOGLOBIN 8.8 G/DL (14.2-18.0); MEAN CORPUSCULAR VOLUME 91 FL (80-99); PLATELET COUNT 92 K/UL (150-450); RED BLOOD COUNT 3.14 M/UL (4.70-6.10); RED CELL DISTRIBUTION WIDTH 17.4 % (11.6-14.8); WHITE BLOOD COUNT 7.7 K/UL (4.8-10.8)
[2017-05-25] MEDS: Promethazine/Codeine 5ml UD ORAL PRN ×2 (07:59→22:06)
[2017-05-25 08:00] VITALS: BP 145/88
[2017-05-25 08:04] LABS: ALANINE AMINOTRANSFERASE 49 U/L (12-78); ALBUMIN 2.7 G/DL (3.4-5.0); ALBUMIN/GLOBULIN RATIO 0.8 (1.0-2.7); ALKALINE PHOSPHATASE 131 U/L (46-116); ANION GAP 10 mmol/L (5-15); ASPARTATE AMINO TRANSFERASE 20 U/L (15-37); BILIRUBIN,TOTAL 0.4 MG/DL (0.2-1.0); BLOOD UREA NITROGEN 79 mg/dL (7-18); CALCIUM 8.3 MG/DL (8.5-10.1); CARBON DIOXIDE 26 MMOL/L (21-32); CHLORIDE 106 MMOL/L (98-107); CREATININE 8.1 MG/DL (0.55-1.30); GAMMA GLUTAMYL TRANSPEPTIDASE 149 U/L (5-85); PHOSPHORUS 7.8 MG/DL (2.5-4.9); POTASSIUM 4.8 MMOL/L (3.5-5.1); SODIUM 142 MMOL/L (136-145)
[2017-05-25] MEDS: Theophylline ER 100mg ORAL SCH (08:39)
[2017-05-25] MEDS: Aspirin Baby 81mg ORAL SCH (08:40)
[2017-05-25] MEDS: ARIPiprazole 10mg tab ORAL SCH (08:40)
[2017-05-25] MEDS: Levofloxacin 500mg tab ORAL SCH (08:40)
[2017-05-25] MEDS: Carvedilol 25mg Tab ORAL SCH (08:40)
[2017-05-25] MEDS: Lisinopril 20mg tab ORAL SCH (08:41)
[2017-05-25] MEDS: Docusate 100mg cap ORAL SCH ×3 (08:41→17:12)
[2017-05-25] MEDS: Heparin 5000 units/ml inj SUBQ SCH ×2 (08:41→21:08)
[2017-05-25] MEDS: Nitroglycerin Patch 0.4mg TDERMAL SCH (10:28)
--- NOTE | 2017-05-25 10:57 | Pulmonology Progress Note ---
Assessment/Plan Assessment/Plan ASSESSMENT elevated troponin , probably troponin leak 2 to ESRD acute CHF with pEF/diastolic chest pain COPD exacerbation HTN urgency Cardiomyopathy L AICD ESRD, on HD anemia of chronic kidney disease Hx of CVA PLAN OF CARE tele serial troponin with mild elevation, levels flat ECHO with EF 50-55% with global LV hypokinesis and RVSP of 53 c/w moderate pulm HTN cardio follows, ECG no acute ischemic changes per cardio troponin elevation likely troponin leak 2 to ESRD however due to HTN, DM, CAD stress test to be done, schedule for Friday lipid panel stable on ASA, BB prior ECHO with EF 40% medical management with BB, GREGORY BP management with multiple anti-HTN meds nicotine abuse with dependency O2 titrate prn HHN ATC and prn fup with CXR IV steroids and taper empiric abx sputum cx if able trial of theophylline a/tussive prn Nicotine patch on Coumadin? reason monitor INR Venous Duplex BLE HD as per nephro done 05/24 monitor renal parameters, correct lytes as needed monitor counts, transfuse pn GI prophylaxis pain management bowel regimen case discussed and evaluated by supervising physician Subjective Allergies: Coded Allergies: No Known Allergies (Unverified , 10/24/15) Subjective no chest pain, on o2 via NC, no SOB, improved , intermittent cough, dry, no hemoptysis Objective Last 24 Hour Vital Signs Date Time Temp Pulse Resp B/P (MAP) Pulse Ox O2 Delivery O2 Flow Rate FiO2 05/25/17 10:28 145/88 05/25/17 08:41 145/88 05/25/17 08:40 89 145/88 05/25/17 08:39 89 145/88 05/25/17 08:00 82 05/25/17 08:00 97.3 89 22 145/88 94 Nasal Cannula 2.0 05/25/17 07:26 75 20 98 Nasal Cannula 2.0 28 05/25/17 07:22 74 20 84 Nasal Cannula 2.0 28 05/25/17 04:00 97.0 92 20 132/84 92 Nasal Cannula 2.0 05/25/17 04:00 91 05/25/17 03:47 88 20 100 Nasal Cannula 2.0 28 05/25/17 03:40 82 20 96 Nasal Cannula 2.0 28 05/25/17 00:00 97.0 88 20 129/78 95 Nasal Cannula 2.0 05/25/17 00:00 89 05/24/17 23:25 86 20 99 Nasal Cannula 2.0 28 05/24/17 23:18 85 20 93 Nasal Cannula 2.0 28 05/24/17 21:31 89 136/87 05/24/17 20:45 98.0 89 16 136/87 Nasal Cannula 2.0 89 05/24/17 20:45 Nasal Cannula 2.0 05/24/17 20:00 89 05/24/17 19:48 21 05/24/17 19:48 Nasal Cannula 2.0 28 05/24/17 19:47 Nasal Cannula 2.0 28 05/24/17 17:00 99.0 99 16 88/68 Nasal Cannula 2.5 05/24/17 17:00 Nasal Cannula 2.5 05/24/17 16:00 92 05/24/17 16:00 97.2 86 20 147/86 100 Nasal Cannula 05/24/17 15:48 88 22 100 Nasal Cannula 2.0 28 05/24/17 15:40 84 22 92 Nasal Cannula 2.0 28 05/24/17 12:51 134/70 05/24/17 12:00 77 05/24/17 12:00 97.2 80 20 134/70 98 Nasal Cannula Intake and Output 05/24/17 05/25/17 19:00 07:00 Intake Total 690 ml 60 ml Output Total 3000 ml Balance 690 ml -2940 ml Intake Oral 690 ml 60 ml Hemodialysis UF 3000 ml # Voids 4 Objective General Appearance: A/A/O x 4 AA male in NAD Lines, tubes and drains: peripheral HEENT: normocephalic, atraumatic, anicteric, mucous membranes moist, PERRL Neck: supple Respiratory/Chest: decreased breath sounds, no wheezes , L chest AICD Cardiovascular/Chest: normal rate, regular rhythm - SR on tele, L AV shunt + bruit/thrill Abdomen: normal bowel sounds, non tender, soft - obese Skin Exam: warm/dry Neurologic: alert Musculoskeletal: normal muscle bulk Microbiology Date/Time Source Procedure Growth Status 05/23/17 04:25 Blood Blood Culture - Preliminary NO GROWTH AFTER 48 HOURS Resulted 05/23/17 04:10 Blood Blood Culture - Preliminary NO GROWTH AFTER 48 HOURS Resulted 05/23/17 07:25 Nasal Nares MRSA Culture - Final Staphylococcus Aureus - Mrsa Complete 05/23/17 04:30 Nasal Nares Influenza Types A,B Antigen (RELL) - Final Complete 05/23/17 07:25 Rectum VRE Culture - Final Enterococcus Faecium - Vre Complete Laboratory Tests 05/25/17 06:50: White Blood Count 7.7#, Red Blood Count 3.14L, Hemoglobin 8.8L, Hematocrit 28.6L , Mean Corpuscular Volume 91, Mean Corpuscular Hemoglobin 28.1, Mean Corpuscular Hemoglobin Concent 31.0L, Red Cell Distribution Width 17.4H, Platelet Count 92L, Mean Platelet Volume 7.5, Neutrophils (%) (Auto) , Lymphocytes (%) (Auto) , Monocytes (%) (Auto) , Eosinophils (%) (Auto) , Basophils (%) (Auto) , Differential Total Cells Counted 100, Neutrophils % ( Manual) 94H, Lymphocytes % (Manual) 3L, Monocytes % (Manual) 3, Eosinophils % ( Manual) 0, Basophils % (Manual) 0, Band Neutrophils 0, Platelet Estimate DecreasedL, Platelet Morphology Normal, Hypochromasia 1+, Anisocytosis 1+, Sodium Level 142, Potassium Level 4.8, Chloride Level 106, Carbon Dioxide Level 26, Anion Gap 10, Blood Urea Nitrogen 79H, Creatinine 8.1H, Estimat Glomerular Filtration Rate 8.4, Glucose Level 201H, Hemoglobin A1c 5.7, Uric Acid 5.4, Calcium Level 8.3L, Phosphorus Level 7.8H, Magnesium Level 2.1, Iron Level 195H , Ferritin [Pending], Total Bilirubin 0.4, Gamma Glutamyl Transpeptidase 149H, Aspartate Amino Transf (AST/SGOT) 20, Alanine Aminotransferase (ALT/SGPT) 49, Alkaline Phosphatase 131H, Troponin I 0.168H, Pro-B-Type Natriuretic Peptide > 70601C, Total Protein 6.1L, Albumin 2.7L, Globulin 3.4, Albumin/Globulin Ratio 0.8L, Vitamin B12 Level 1381H, Folate 17.5, Free Thyroxine 0.55L Current Medications Medications (Trade) Dose Ordered Sig/Jose Route PRN Reason Start Time Stop Time Status Last Admin Dose Admin Acetaminophen/ Hydrocodone Bitart ([place] 10/325) 1 tab Q6H PRN ORAL Pain Scale (6-10) 05/23/17 08:45 05/30/17 08:44 05/24/17 09:11 Albuterol/ Ipratropium (Albuterol/ Ipratropium) 3 ml Q4HRT HHN 05/24/17 15:00 05/29/17 14:59 05/25/17 07:38 Alprazolam (Xanax) 2 mg Q6H PRN ORAL For Anxiety 05/24/17 14:00 05/31/17 13:59 05/24/17 16:37 Amlodipine Besylate (Norvasc) 10 mg DAILY ORAL 05/23/17 10:00 06/22/17 09:59 05/25/17 08:39 Aripiprazole (Abilify) 10 mg DAILY ORAL 05/23/17 11:00 06/22/17 10:59 05/25/17 08:40 Aspirin (ASA) 81 mg DAILY ORAL 05/23/17 11:00 06/22/17 10:59 05/25/17 08:40 Atorvastatin Calcium (Lipitor) 80 mg QHS ORAL 05/23/17 21:00 06/22/17 20:59 05/24/17 21:32 Bupropion HCl (Wellbutrin) 100 mg BID ORAL 05/23/17 18:00 06/22/17 17:59 05/25/17 08:39 Calcium Acetate (Phoslo) 667 mg EVERY 8 HOURS ORAL 05/23/17 22:00 06/22/17 21:59 05/25/17 06:01 Carvedilol (Coreg) 25 mg EVERY 12 HOURS ORAL 05/23/17 10:00 06/22/17 09:59 05/25/17 08:40 Clonidine HCl (Catapres Tab) 0.1 mg Q4H PRN ORAL For High Blood Pressure 05/23/17 08:45 06/22/17 08:44 Diphenhydramine HCl (Benadryl) 25 mg Q6H PRN ORAL Itching 05/23/17 08:45 06/22/17 08:44 Docusate Sodium (Colace) 100 mg THREE TIMES A DAY ORAL 05/24/17 13:00 06/23/17 12:59 Donepezil HCl (Aricept) 5 mg QHS ORAL 05/23/17 21:00 06/22/17 20:59 05/24/17 21:32 Folic Acid (Folate) 1 mg DAILY ORAL 05/23/17 10:00 06/22/17 09:59 05/25/17 08:40 Heparin Sodium (Porcine) (Heparin 5000 units/ml) 5,000 units EVERY 12 HOURS SUBQ 05/23/17 21:00 06/22/17 20:59 Levofloxacin (Levaquin) 500 mg Q48H ORAL 05/25/17 09:00 06/01/17 23:59 05/25/17 08:40 Lisinopril (Prinivil) 40 mg DAILY ORAL 05/24/17 09:00 06/23/17 08:59 05/25/17 08:41 Methylprednisolone Sodium Succinate (Solu-MEDROL) 60 mg Q8HR IVP 05/24/17 14:00 06/22/17 17:59 05/25/17 06:01 Nicotine (Nicoderm) 1 patch Q24H TDERMAL 05/23/17 13:00 06/22/17 12:59 05/24/17 12:17 Nitroglycerin (Ntg) 0.4 mg Q5M PRN SL Prn Chest Pain 05/23/17 08:45 06/22/17 08:44 Nitroglycerin (Ntg) 1 patch Q24H TDERMAL 05/24/17 10:15 06/23/17 10:14 05/25/17 10:28 Ondansetron HCl (Zofran) 4 mg Q6H PRN IVP Nausea & Vomiting 05/23/17 08:45 06/22/17 08:44 Pantoprazole (Protonix) 40 mg BID ORAL 05/24/17 18:00 06/22/17 10:59 05/25/17 08:40 Promethazine HCl/ Codeine (Phenergan with Codeine) 5 ml Q4H PRN ORAL For Cough 05/23/17 12:15 06/22/17 12:14 05/25/17 07:59 Quetiapine Fumarate (SEROquel) 100 mg DAILY ORAL 05/24/17 09:00 06/23/17 08:59 05/25/17 08:39 Sevelamer Carbonate (Renvela) 2,400 mg THREE TIMES A DAY ORAL 05/24/17 13:00 06/23/17 12:59 05/25/17 08:40 Theophylline (Moe-Dur) 100 mg DAILY ORAL 05/24/17 09:00 06/23/17 08:59 05/25/17 08:39 Rohan ([facility])Mariela NP May 25, 2017 10:57
--- NOTE | 2017-05-25 11:31 | Nephrology Progress Note ---
Assessment/Plan Problem List: (1) Hyperkalemia (2) ESRD (end stage renal disease) on dialysis (3) Elevated troponin (4) HTN (hypertension) Assessment elevated troponin r/o ACS chest pain COPD exacerbation HTN urgency Cardiomyopathy CHF L AICD ESRD, on HD anemia of chronic kidney disease Hx of CVA Plan Plan: Had HD 05/24 Had One dose Kayexelate- On Phos binders Monitor lytes and HD as needed Optimize cardiac status Subjective ROS Limited/Unobtainable: No Constitutional: Reports: other - no CP Objective Objective Last 24 Hour Vital Signs Date Time Temp Pulse Resp B/P (MAP) Pulse Ox O2 Delivery O2 Flow Rate FiO2 05/25/17 11:11 88 20 99 Nasal Cannula 2.0 05/25/17 11:10 72 20 91 Nasal Cannula 2.0 05/25/17 10:28 145/88 05/25/17 08:41 145/88 05/25/17 08:40 89 145/88 05/25/17 08:39 89 145/88 05/25/17 08:00 82 05/25/17 08:00 97.3 89 22 145/88 94 Nasal Cannula 2.0 05/25/17 07:26 75 20 98 Nasal Cannula 2.0 05/25/17 07:22 74 20 84 Nasal Cannula 2.0 05/25/17 04:00 97.0 92 20 132/84 92 Nasal Cannula 2.0 05/25/17 04:00 91 05/25/17 03:47 88 20 100 Nasal Cannula 2.0 05/25/17 03:40 82 20 96 Nasal Cannula 2.0 05/25/17 00:00 97.0 88 20 129/78 95 Nasal Cannula 2.0 05/25/17 00:00 89 05/24/17 23:25 86 20 99 Nasal Cannula 2.0 28 05/24/17 23:18 85 20 93 Nasal Cannula 2.0 28 05/24/17 21:31 89 136/87 05/24/17 20:45 98.0 89 16 136/87 Nasal Cannula 2.0 89 05/24/17 20:45 Nasal Cannula 2.0 05/24/17 20:00 89 05/24/17 19:48 21 05/24/17 19:48 Nasal Cannula 2.0 28 05/24/17 19:47 Nasal Cannula 2.0 28 05/24/17 17:00 99.0 99 16 88/68 Nasal Cannula 2.5 05/24/17 17:00 Nasal Cannula 2.5 05/24/17 16:00 92 05/24/17 16:00 97.2 86 20 147/86 100 Nasal Cannula 05/24/17 15:48 88 22 100 Nasal Cannula 2.0 28 05/24/17 15:40 84 22 92 Nasal Cannula 2.0 28 05/24/17 12:51 134/70 05/24/17 12:00 77 05/24/17 12:00 97.2 80 20 134/70 98 Nasal Cannula Intake and Output 05/24/17 05/25/17 19:00 07:00 Intake Total 690 ml 60 ml Output Total 3000 ml Balance 690 ml -2940 ml Intake Oral 690 ml 60 ml Hemodialysis UF 3000 ml # Voids 4 Laboratory Tests 05/25/17 06:50: White Blood Count 7.7#, Red Blood Count 3.14L, Hemoglobin 8.8L, Hematocrit 28.6L , Mean Corpuscular Volume 91, Mean Corpuscular Hemoglobin 28.1, Mean Corpuscular Hemoglobin Concent 31.0L, Red Cell Distribution Width 17.4H, Platelet Count 92L, Mean Platelet Volume 7.5, Neutrophils (%) (Auto) , Lymphocytes (%) (Auto) , Monocytes (%) (Auto) , Eosinophils (%) (Auto) , Basophils (%) (Auto) , Differential Total Cells Counted 100, Neutrophils % ( Manual) 94H, Lymphocytes % (Manual) 3L, Monocytes % (Manual) 3, Eosinophils % ( Manual) 0, Basophils % (Manual) 0, Band Neutrophils 0, Platelet Estimate DecreasedL, Platelet Morphology Normal, Hypochromasia 1+, Anisocytosis 1+, Sodium Level 142, Potassium Level 4.8, Chloride Level 106, Carbon Dioxide Level 26, Anion Gap 10, Blood Urea Nitrogen 79H, Creatinine 8.1H, Estimat Glomerular Filtration Rate 8.4, Glucose Level 201H, Hemoglobin A1c 5.7, Uric Acid 5.4, Calcium Level 8.3L, Phosphorus Level 7.8H, Magnesium Level 2.1, Iron Level 195H , Ferritin 276, Total Bilirubin 0.4, Gamma Glutamyl Transpeptidase 149H, Aspartate Amino Transf (AST/SGOT) 20, Alanine Aminotransferase (ALT/SGPT) 49, Alkaline Phosphatase 131H, Troponin I 0.168H, Pro-B-Type Natriuretic Peptide > 72348J, Total Protein 6.1L, Albumin 2.7L, Globulin 3.4, Albumin/Globulin Ratio 0.8L, Vitamin B12 Level 1381H, Folate 17.5, Free Thyroxine 0.55L Height (Feet): 5 Height (Inches): 7.00 Weight (Pounds): 226 General Appearance: no apparent distress Cardiovascular: normal rate Respiratory/Chest: decreased breath sounds Abdomen: soft LIAM MONTELONGO May 25, 2017 11:31
[2017-05-25 12:00] VITALS: BP 142/87
--- NOTE | 2017-05-25 13:00 | Cardiology Progress Note ---
Assessment/Plan Assessment/Plan 1. Chest pain, pleuritic, however in face of DMand HTN, hx of prior vascular event, i.e.CVA and slight trop rise, would schedule for MPI. 2. Elevated troponin I level,most likely due to troponin leak due to end-stage renal disease. There are no ECG changes of ischemia. No wall motion abnormalities. 3. Acute HFpEF, continue HD, afterload reduction. Objective Last 24 Hour Vital Signs Date Time Temp Pulse Resp B/P (MAP) Pulse Ox O2 Delivery O2 Flow Rate FiO2 05/25/17 12:00 97.3 87 20 142/87 94 Nasal Cannula 2.0 05/25/17 11:11 88 20 99 Nasal Cannula 2.0 28 05/25/17 11:10 72 20 91 Nasal Cannula 2.0 05/25/17 10:28 145/88 05/25/17 08:41 145/88 05/25/17 08:40 89 145/88 05/25/17 08:39 89 145/88 05/25/17 08:00 82 05/25/17 08:00 97.3 89 22 145/88 94 Nasal Cannula 2.0 05/25/17 07:26 75 20 98 Nasal Cannula 2.0 05/25/17 07:22 74 20 84 Nasal Cannula 2.0 05/25/17 04:00 97.0 92 20 132/84 92 Nasal Cannula 2.0 05/25/17 04:00 91 05/25/17 03:47 88 20 100 Nasal Cannula 2.0 05/25/17 03:40 82 20 96 Nasal Cannula 2.0 05/25/17 00:00 97.0 88 20 129/78 95 Nasal Cannula 2.0 05/25/17 00:00 89 05/24/17 23:25 86 20 99 Nasal Cannula 2.0 28 05/24/17 23:18 85 20 93 Nasal Cannula 2.0 05/24/17 21:31 89 136/87 05/24/17 20:45 98.0 89 16 136/87 Nasal Cannula 2.0 89 05/24/17 20:45 Nasal Cannula 2.0 05/24/17 20:00 89 05/24/17 19:48 21 05/24/17 19:48 Nasal Cannula 2.0 28 05/24/17 19:47 Nasal Cannula 2.0 28 05/24/17 17:00 99.0 99 16 88/68 Nasal Cannula 2.5 05/24/17 17:00 Nasal Cannula 2.5 05/24/17 16:00 92 05/24/17 16:00 97.2 86 20 147/86 100 Nasal Cannula 05/24/17 15:48 88 22 100 Nasal Cannula 2.0 28 05/24/17 15:40 84 22 92 Nasal Cannula 2.0 28 Intake and Output 05/24/17 05/25/17 19:00 07:00 Intake Total 690 ml 60 ml Output Total 3000 ml Balance 690 ml -2940 ml Intake Oral 690 ml 60 ml Hemodialysis UF 3000 ml # Voids 4 2D Echo: EF 55%, Mild LVH, Mod LAE, RVSP 53 mmHg, AICD lead present Laboratory Tests Test 05/25/17 06:50 White Blood Count 7.7 K/UL (4.8-10.8) # Red Blood Count 3.14 M/UL (4.70-6.10) L Hemoglobin 8.8 G/DL (14.2-18.0) L Hematocrit 28.6 % (42.0-52.0) L Mean Corpuscular Volume 91 FL (80-99) Mean Corpuscular Hemoglobin 28.1 PG (27.0-31.0) Mean Corpuscular Hemoglobin Concent 31.0 G/DL (32.0-36.0) L Red Cell Distribution Width 17.4 % (11.6-14.8) H Platelet Count 92 K/UL (150-450) L Mean Platelet Volume 7.5 FL (6.5-10.1) Neutrophils (%) (Auto) % (45.0-75.0) Lymphocytes (%) (Auto) % (20.0-45.0) Monocytes (%) (Auto) % (1.0-10.0) Eosinophils (%) (Auto) % (0.0-3.0) Basophils (%) (Auto) % (0.0-2.0) Differential Total Cells Counted 100 Neutrophils % (Manual) 94 % (45-75) H Lymphocytes % (Manual) 3 % (20-45) L Monocytes % (Manual) 3 % (1-10) Eosinophils % (Manual) 0 % (0-3) Basophils % (Manual) 0 % (0-2) Band Neutrophils 0 % (0-8) Platelet Estimate Decreased L Platelet Morphology Normal Hypochromasia 1+ Anisocytosis 1+ Sodium Level 142 MMOL/L (136-145) Potassium Level 4.8 MMOL/L (3.5-5.1) Chloride Level 106 MMOL/L (98-107) Carbon Dioxide Level 26 MMOL/L (21-32) Anion Gap 10 mmol/L (5-15) Blood Urea Nitrogen 79 mg/dL (7-18) H Creatinine 8.1 MG/DL (0.55-1.30) H Estimat Glomerular Filtration Rate 8.4 mL/min (>60) Glucose Level 201 MG/DL (74-106) H Hemoglobin A1c 5.7 % (4.3-6.0) Uric Acid 5.4 MG/DL (2.6-7.2) Calcium Level 8.3 MG/DL (8.5-10.1) L Phosphorus Level 7.8 MG/DL (2.5-4.9) H Magnesium Level 2.1 MG/DL (1.8-2.4) Iron Level 195 ug/dL (50-175) H Ferritin 276 NG/ML (8-388) Total Bilirubin 0.4 MG/DL (0.2-1.0) Gamma Glutamyl Transpeptidase 149 U/L (5-85) H Aspartate Amino Transf (AST/SGOT) 20 U/L (15-37) Alanine Aminotransferase (ALT/SGPT) 49 U/L (12-78) Alkaline Phosphatase 131 U/L (46-116) H Troponin I 0.168 ng/mL (0.000-0.056) Pro-B-Type Natriuretic Peptide > 93589 pg/mL (0-125) H Total Protein 6.1 G/DL (6.4-8.2) L Albumin 2.7 G/DL (3.4-5.0) L Globulin 3.4 g/dL Albumin/Globulin Ratio 0.8 (1.0-2.7) L Vitamin B12 Level 1381 PG/ML (193-986) H Folate 17.5 NG/ML (8.6-58.9) Free Thyroxine 0.55 NG/DL (0.76-1.46) L Microbiology Date/Time Source Procedure Growth Status 05/23/17 04:25 Blood Blood Culture - Preliminary NO GROWTH AFTER 48 HOURS Resulted 05/23/17 04:10 Blood Blood Culture - Preliminary NO GROWTH AFTER 48 HOURS Resulted 05/23/17 07:25 Nasal Nares MRSA Culture - Final Staphylococcus Aureus - Mrsa Complete 05/23/17 04:30 Nasal Nares Influenza Types A,B Antigen (RELL) - Final Complete 05/23/17 07:25 Rectum VRE Culture - Final Enterococcus Faecium - Vre Complete Objective HEENT: Atraumatic and normocephalic. Anicteric. Pupils are equal, round, and reactive to light and accommodation. Conjunctival pallor is present. NECK: JVP cannot be assessed. No carotid bruit. CVS: Normal S1 and S2. Positive S3. A 2/6 mid systolic murmur at the left sternal border. PMI is at fourth intercostal space in the midclavicular line. LUNGS: Bilateral crackles in both bases. ABDOMEN: Soft, nontender, and nondistended. No hepatosplenomegaly. Positive bowel sounds. EXTREMITIES: No evidence of edema, clubbing, or cyanosis. JERO MANZO May 25, 2017 13:00
[2017-05-25] MEDS: HYDROcodone/Acetamin 10/325 tab ORAL PRN ×2 (13:03→22:05)
--- NOTE | 2017-05-25 13:53 | Internal Med Progress Note ---
Subjective Date of Service: May 25, 2017 Physician Name Zoey Pires Attending Physician Chaitanay Weinstein MD Current Medications Medications (Trade) Dose Ordered Sig/Jose Route PRN Reason Start Time Stop Time Status Last Admin Dose Admin Acetaminophen/ Hydrocodone Bitart ([place] 10/325) 1 tab Q6H PRN ORAL Pain Scale (6-10) 05/23/17 08:45 05/30/17 08:44 05/25/17 13:03 Albuterol/ Ipratropium (Albuterol/ Ipratropium) 3 ml Q4HRT HHN 05/24/17 15:00 05/29/17 14:59 05/25/17 11:10 Alprazolam (Xanax) 2 mg Q6H PRN ORAL For Anxiety 05/24/17 14:00 05/31/17 13:59 05/24/17 16:37 Aripiprazole (Abilify) 10 mg DAILY ORAL 05/23/17 11:00 06/22/17 10:59 05/25/17 08:40 Aspirin (ASA) 81 mg DAILY ORAL 05/23/17 11:00 06/22/17 10:59 05/25/17 08:40 Atorvastatin Calcium (Lipitor) 80 mg QHS ORAL 05/23/17 21:00 06/22/17 20:59 05/24/17 21:32 Bupropion HCl (Wellbutrin) 100 mg BID ORAL 05/23/17 18:00 06/22/17 17:59 05/25/17 08:39 Calcium Acetate (Phoslo) 667 mg EVERY 8 HOURS ORAL 05/23/17 22:00 06/22/17 21:59 05/25/17 06:01 Clonidine HCl (Catapres Tab) 0.1 mg Q4H PRN ORAL For High Blood Pressure 05/23/17 08:45 06/22/17 08:44 Diphenhydramine HCl (Benadryl) 25 mg Q6H PRN ORAL Itching 05/23/17 08:45 06/22/17 08:44 Docusate Sodium (Colace) 100 mg THREE TIMES A DAY ORAL 05/24/17 13:00 06/23/17 12:59 Donepezil HCl (Aricept) 5 mg QHS ORAL 05/23/17 21:00 06/22/17 20:59 05/24/17 21:32 Folic Acid (Folate) 1 mg DAILY ORAL 05/23/17 10:00 06/22/17 09:59 05/25/17 08:40 Heparin Sodium (Porcine) (Heparin 5000 units/ml) 5,000 units EVERY 12 HOURS SUBQ 05/23/17 21:00 06/22/17 20:59 Hydralazine HCl (Apresoline) 25 mg Q6HR ORAL 05/25/17 13:15 06/24/17 13:14 Levofloxacin (Levaquin) 500 mg Q48H ORAL 05/25/17 09:00 06/01/17 23:59 05/25/17 08:40 Lisinopril (Prinivil) 40 mg DAILY ORAL 05/24/17 09:00 06/23/17 08:59 05/25/17 08:41 Methylprednisolone Sodium Succinate (Solu-MEDROL) 60 mg Q12HR IVP 05/25/17 21:00 06/22/17 17:59 Nicotine (Nicoderm) 1 patch Q24H TDERMAL 05/23/17 13:00 06/22/17 12:59 05/25/17 12:58 Nitroglycerin (Ntg) 0.4 mg Q5M PRN SL Prn Chest Pain 05/23/17 08:45 06/22/17 08:44 Nitroglycerin (Ntg) 1 patch Q24H TDERMAL 05/24/17 10:15 06/23/17 10:14 05/25/17 10:28 Ondansetron HCl (Zofran) 4 mg Q6H PRN IVP Nausea & Vomiting 05/23/17 08:45 06/22/17 08:44 Pantoprazole (Protonix) 40 mg BID ORAL 05/24/17 18:00 06/22/17 10:59 05/25/17 08:40 Promethazine HCl/ Codeine (Phenergan with Codeine) 5 ml Q4H PRN ORAL For Cough 05/23/17 12:15 06/22/17 12:14 05/25/17 07:59 Quetiapine Fumarate (SEROquel) 100 mg DAILY ORAL 05/24/17 09:00 06/23/17 08:59 05/25/17 08:39 Regadenoson (Lexiscan) 0.4 mg ONCE ONCE IV 05/26/17 04:00 05/26/17 04:01 Sevelamer Carbonate (Renvela) 2,400 mg THREE TIMES A DAY ORAL 05/24/17 13:00 06/23/17 12:59 05/25/17 12:57 Theophylline (Moe-Dur) 100 mg DAILY ORAL 05/24/17 09:00 06/23/17 08:59 05/25/17 08:39 Allergies: Coded Allergies: No Known Allergies (Unverified , 10/24/15) ROS Limited/Unobtainable: No Constitutional: Reports: no symptoms HEENT: Reports: no symptoms Cardiovascular: Reports: no symptoms Respiratory: Reports: no symptoms Gastrointestinal/Abdominal: Reports: no symptoms Genitourinary: Reports: no symptoms Neurologic/Psychiatric: Reports: no symptoms Subjective 57 YO M admitted with chest pain. Now elevated troponin. Cover for Int Med Dr Weinstein. Await cardiolite stress test. Objective Last Vital Signs Date Time Temp Pulse Resp B/P (MAP) Pulse Ox O2 Delivery O2 Flow Rate FiO2 05/25/17 12:00 97.3 87 20 142/87 94 Nasal Cannula 2.0 05/25/17 11:11 28 Laboratory Tests Test 05/25/17 06:50 White Blood Count 7.7 K/UL (4.8-10.8) # Red Blood Count 3.14 M/UL (4.70-6.10) L Hemoglobin 8.8 G/DL (14.2-18.0) L Hematocrit 28.6 % (42.0-52.0) L Mean Corpuscular Volume 91 FL (80-99) Mean Corpuscular Hemoglobin 28.1 PG (27.0-31.0) Mean Corpuscular Hemoglobin Concent 31.0 G/DL (32.0-36.0) L Red Cell Distribution Width 17.4 % (11.6-14.8) H Platelet Count 92 K/UL (150-450) L Mean Platelet Volume 7.5 FL (6.5-10.1) Neutrophils (%) (Auto) % (45.0-75.0) Lymphocytes (%) (Auto) % (20.0-45.0) Monocytes (%) (Auto) % (1.0-10.0) Eosinophils (%) (Auto) % (0.0-3.0) Basophils (%) (Auto) % (0.0-2.0) Differential Total Cells Counted 100 Neutrophils % (Manual) 94 % (45-75) H Lymphocytes % (Manual) 3 % (20-45) L Monocytes % (Manual) 3 % (1-10) Eosinophils % (Manual) 0 % (0-3) Basophils % (Manual) 0 % (0-2) Band Neutrophils 0 % (0-8) Platelet Estimate Decreased L Platelet Morphology Normal Hypochromasia 1+ Anisocytosis 1+ Sodium Level 142 MMOL/L (136-145) Potassium Level 4.8 MMOL/L (3.5-5.1) Chloride Level 106 MMOL/L (98-107) Carbon Dioxide Level 26 MMOL/L (21-32) Anion Gap 10 mmol/L (5-15) Blood Urea Nitrogen 79 mg/dL (7-18) H Creatinine 8.1 MG/DL (0.55-1.30) H Estimat Glomerular Filtration Rate 8.4 mL/min (>60) Glucose Level 201 MG/DL (74-106) H Hemoglobin A1c 5.7 % (4.3-6.0) Uric Acid 5.4 MG/DL (2.6-7.2) Calcium Level 8.3 MG/DL (8.5-10.1) L Phosphorus Level 7.8 MG/DL (2.5-4.9) H Magnesium Level 2.1 MG/DL (1.8-2.4) Iron Level 195 ug/dL (50-175) H Ferritin 276 NG/ML (8-388) Total Bilirubin 0.4 MG/DL (0.2-1.0) Gamma Glutamyl Transpeptidase 149 U/L (5-85) H Aspartate Amino Transf (AST/SGOT) 20 U/L (15-37) Alanine Aminotransferase (ALT/SGPT) 49 U/L (12-78) Alkaline Phosphatase 131 U/L (46-116) H Troponin I 0.168 ng/mL (0.000-0.056) Pro-B-Type Natriuretic Peptide > 18004 pg/mL (0-125) H Total Protein 6.1 G/DL (6.4-8.2) L Albumin 2.7 G/DL (3.4-5.0) L Globulin 3.4 g/dL Albumin/Globulin Ratio 0.8 (1.0-2.7) L Vitamin B12 Level 1381 PG/ML (193-986) H Folate 17.5 NG/ML (8.6-58.9) Free Thyroxine 0.55 NG/DL (0.76-1.46) L Microbiology Date/Time Source Procedure Growth Status 05/23/17 04:25 Blood Blood Culture - Preliminary NO GROWTH AFTER 48 HOURS Resulted 05/23/17 04:10 Blood Blood Culture - Preliminary NO GROWTH AFTER 48 HOURS Resulted 05/23/17 07:25 Nasal Nares MRSA Culture - Final Staphylococcus Aureus - Mrsa Complete 05/23/17 04:30 Nasal Nares Influenza Types A,B Antigen (RELL) - Final Complete 05/23/17 07:25 Rectum VRE Culture - Final Enterococcus Faecium - Vre Complete Intake and Output 05/24/17 05/25/17 19:00 07:00 Intake Total 690 ml 60 ml Output Total 3000 ml Balance 690 ml -2940 ml Intake Oral 690 ml 60 ml Hemodialysis UF 3000 ml # Voids 4 Objective General Appearance: WD/WN, no apparent distress, alert EENT: PERRL/EOMI, normal ENT inspection Neck: non-tender, normal alignment, supple, normal inspection Cardiovascular: normal peripheral pulses, normal rate, regular rhythm, no gallop/murmur, no JVD Respiratory/Chest: chest wall non-tender, lungs clear, normal breath sounds, no respiratory distress, no accessory muscle use Abdomen: normal bowel sounds, non tender, soft, no organomegaly, no mass Extremities: normal range of motion, non-tender 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 (2) HTN (hypertension) Assessment & Plan: Cont norvasc, coreg and clonidine. (3) CHF (congestive heart failure) Assessment & Plan: ?volume overload?-see cardiology note. (4) Chest pain Assessment & Plan: Await cardiolite stress test-see cardiology note. (5) Elevated troponin Assessment & Plan: See cardiology note. (6) ESRD (end stage renal disease) on dialysis (7) Purulent bronchitis Assessment & Plan: H/O pneumonia. Cont levaquim per pulmonary Status: not improved ZOEY PIRES May 25, 2017 13:53
[2017-05-25] MEDS: HydrALAZINE 25mg tab ORAL SCH ×2 (13:58→17:11)
[2017-05-25 16:00] VITALS: BP 141/84
[2017-05-25 20:00] VITALS: BP 137/89
[2017-05-25] MEDS: Donepezil 5mg Tab ORAL SCH (21:06)
[2017-05-25] MEDS: Atorvastatin 80mg tab ORAL SCH (21:06)
[2017-05-26] VITALS: BP 131/88
[2017-05-26] MEDS: HydrALAZINE 25mg tab ORAL SCH ×4 (00:50→18:22)
[2017-05-26] MEDS: Albuterol/Ipratropium 3ml neb HHN SCH ×6 (03:00→22:10)
[2017-05-26 04:00] VITALS: BP 135/81
[2017-05-26] MEDS ORDERED: Lexiscan 0.4mg/5ml syringe IV ONE (04:00)
[2017-05-26] MEDS: Calcium Acetate 667mg Tab ORAL SCH ×3 (06:23→21:49)
[2017-05-26 07:40] LABS: HEMATOCRIT 29.9 % (42.0-52.0); HEMOGLOBIN 9.1 G/DL (14.2-18.0); MEAN CORPUSCULAR VOLUME 92 FL (80-99); PLATELET COUNT 101 K/UL (150-450); RED BLOOD COUNT 3.25 M/UL (4.70-6.10); RED CELL DISTRIBUTION WIDTH 16.9 % (11.6-14.8); WHITE BLOOD COUNT 9.4 K/UL (4.8-10.8)
[2017-05-26 07:42] LABS: ANION GAP 12 mmol/L (5-15); BLOOD UREA NITROGEN 103 mg/dL (7-18); CALCIUM 8.6 MG/DL (8.5-10.1); CARBON DIOXIDE 23 MMOL/L (21-32); CHLORIDE 103 MMOL/L (98-107); CREATININE 9.3 MG/DL (0.55-1.30); POTASSIUM 5.1 MMOL/L (3.5-5.1); SODIUM 138 MMOL/L (136-145)
[2017-05-26 08:00] VITALS: BP 148/85
--- NOTE | 2017-05-26 09:06 | Pulmonology Progress Note ---
Assessment/Plan Assessment/Plan ASSESSMENT elevated troponin likely troponin leak 2 to ESRD chest pain COPD exacerbation HTN urgency Cardiomyopathy CHF L AICD ESRD, on HD anemia of chronic kidney disease Hx of CVA PLAN OF CARE tele serial troponin with mild elevation, levels flat ECHO with EF 50-55% with global LV hypokinesis and RVSP of 53 c/w moderate pulm HTN cardio follows, ECG no acute ischemic changes per cardio troponin elevation likely troponin leak 2 to ESRD however due to HTN, DM, CAD stress test to be done, schedule for today lipid panel stable on ASA, BB prior ECHO with EF 40% medical management with BB, GREGORY BP management with multiple anti-HTN meds nicotine abuse with dependency O2 titrate prn HHN ATC and prn fup with CXR today IV steroids and taper empiric abx sputum cx if able trial of theophylline a/tussive prn Nicotine patch on Coumadin? reason monitor INR Venous Duplex BLE HD as per nephro done 05/24 monitor renal parameters, correct lytes as needed monitor counts, transfuse pn GI prophylaxis pain management bowel regimen can be dc from pulm standpoint if stress test negative pulm scripts left case discussed and evaluated by supervising physician Subjective Allergies: Coded Allergies: No Known Allergies (Unverified , 10/24/15) Subjective no chest pain, on o2 via NC, no SOB, improved , intermittent cough, dry, no hemoptysis improving Objective Last 24 Hour Vital Signs Date Time Temp Pulse Resp B/P (MAP) Pulse Ox O2 Delivery O2 Flow Rate FiO2 05/26/17 07:56 92 20 96 Nasal Cannula 2.0 05/26/17 07:46 90 20 94 Nasal Cannula 2.0 05/26/17 07:45 Nasal Cannula 2.0 05/26/17 07:44 94 Nasal Cannula 2.0 05/26/17 06:24 135/81 05/26/17 04:00 83 05/26/17 04:00 98.1 85 20 135/81 94 Nasal Cannula 2.0 05/26/17 03:19 Nasal Cannula 05/26/17 03:18 Nasal Cannula 05/26/17 00:50 131/88 05/26/17 00:00 98.6 82 18 131/88 100 Nasal Cannula 2.0 05/26/17 00:00 90 05/25/17 22:40 83 20 98 Nasal Cannula 2.0 28 05/25/17 22:33 82 20 93 Nasal Cannula 2.0 28 05/25/17 20:00 88 05/25/17 20:00 97.3 81 20 137/89 97 Nasal Cannula 2.0 05/25/17 19:15 81 20 99 Nasal Cannula 2.0 28 05/25/17 19:08 78 20 98 Nasal Cannula 2.0 28 05/25/17 17:11 141/84 05/25/17 16:00 89 05/25/17 16:00 96.3 82 18 141/84 94 Nasal Cannula 2.0 05/25/17 15:05 80 20 99 Nasal Cannula 2.0 28 05/25/17 14:56 83 20 100 Nasal Cannula 2.0 28 05/25/17 13:58 134/78 05/25/17 12:00 97.3 87 20 142/87 94 Nasal Cannula 2.0 05/25/17 12:00 82 05/25/17 11:11 88 20 99 Nasal Cannula 2.0 28 05/25/17 11:10 72 20 91 Nasal Cannula 2.0 28 05/25/17 10:28 145/88 Intake and Output 05/25/17 05/26/17 19:00 07:00 Intake Total 700 ml Balance 700 ml Intake Oral 700 ml # Voids 1 2 Objective General Appearance: A/A/O x 4 AA male NAD Lines, tubes and drains: peripheral HEENT: normocephalic, atraumatic, anicteric, mucous membranes moist, PERRL Neck: supple Respiratory/Chest: decreased breath sounds, few isolated exp wheezes , L chest AICD Cardiovascular/Chest: normal rate, regular rhythm - SR on tele, L AV shunt + bruit/thrill Abdomen: normal bowel sounds, non tender, soft - obese Skin Exam: warm/dry Neurologic: alert Musculoskeletal: normal muscle bulk Microbiology Date/Time Source Procedure Growth Status 05/25/17 00:00 Sputum Gram Stain Pending Resulted 05/25/17 00:00 Sputum Culture - Preliminary Staphylococcus Aureus Resulted Laboratory Tests 05/26/17 06:45: White Blood Count 9.4, Red Blood Count 3.25L, Hemoglobin 9.1L, Hematocrit 29.9L , Mean Corpuscular Volume 92, Mean Corpuscular Hemoglobin 28.1, Mean Corpuscular Hemoglobin Concent 30.6L, Red Cell Distribution Width 16.9H, Platelet Count 101L, Mean Platelet Volume 7.2, Neutrophils (%) (Auto) , Lymphocytes (%) (Auto) , Monocytes (%) (Auto) , Eosinophils (%) (Auto) , Basophils (%) (Auto) , Differential Total Cells Counted 100, Neutrophils % ( Manual) 94H, Lymphocytes % (Manual) 3L, Monocytes % (Manual) 3, Eosinophils % ( Manual) 0, Basophils % (Manual) 0, Band Neutrophils 0, Platelet Estimate DecreasedL, Platelet Morphology Normal, Hypochromasia 2+, Anisocytosis 1+, Sodium Level 138, Potassium Level 5.1, Chloride Level 103, Carbon Dioxide Level 23, Anion Gap 12, Blood Urea Nitrogen 103H, Creatinine 9.3H, Estimat Glomerular Filtration Rate 7.2, Glucose Level 137H, Calcium Level 8.6 Current Medications Medications (Trade) Dose Ordered Sig/Jose Route PRN Reason Start Time Stop Time Status Last Admin Dose Admin Acetaminophen/ Hydrocodone Bitart ([place] 10/325) 1 tab Q6H PRN ORAL Pain Scale (6-10) 05/23/17 08:45 05/30/17 08:44 05/25/17 22:05 Albuterol/ Ipratropium (Albuterol/ Ipratropium) 3 ml Q4HRT HHN 05/24/17 15:00 05/29/17 14:59 05/26/17 07:46 Alprazolam (Xanax) 2 mg Q6H PRN ORAL For Anxiety 05/24/17 14:00 05/31/17 13:59 05/24/17 16:37 Aripiprazole (Abilify) 10 mg DAILY ORAL 05/23/17 11:00 06/22/17 10:59 05/25/17 08:40 Aspirin (ASA) 81 mg DAILY ORAL 05/23/17 11:00 06/22/17 10:59 05/25/17 08:40 Atorvastatin Calcium (Lipitor) 80 mg QHS ORAL 05/23/17 21:00 06/22/17 20:59 05/25/17 21:06 Bupropion HCl (Wellbutrin) 100 mg BID ORAL 05/23/17 18:00 06/22/17 17:59 05/25/17 17:11 Calcium Acetate (Phoslo) 667 mg EVERY 8 HOURS ORAL 05/23/17 22:00 06/22/17 21:59 05/26/17 06:23 Carisoprodol (Soma) 350 mg TIDPRN PRN ORAL For Pain (muscle spasms) 05/25/17 14:15 06/24/17 14:14 Clonidine HCl (Catapres Tab) 0.1 mg Q4H PRN ORAL For High Blood Pressure 05/23/17 08:45 06/22/17 08:44 Diphenhydramine HCl (Benadryl) 25 mg Q6H PRN ORAL Itching 05/23/17 08:45 06/22/17 08:44 Docusate Sodium (Colace) 100 mg THREE TIMES A DAY ORAL 05/24/17 13:00 06/23/17 12:59 Donepezil HCl (Aricept) 5 mg QHS ORAL 05/23/17 21:00 06/22/17 20:59 05/25/17 21:06 Folic Acid (Folate) 1 mg DAILY ORAL 05/23/17 10:00 06/22/17 09:59 05/25/17 08:40 Heparin Sodium (Porcine) (Heparin 5000 units/ml) 5,000 units EVERY 12 HOURS SUBQ 05/23/17 21:00 06/22/17 20:59 05/25/17 21:08 Hydralazine HCl (Apresoline) 25 mg Q6HR ORAL 05/25/17 13:15 06/24/17 13:14 05/26/17 06:24 Levofloxacin (Levaquin) 500 mg Q48H ORAL 05/25/17 09:00 06/01/17 23:59 05/25/17 08:40 Lisinopril (Prinivil) 40 mg DAILY ORAL 05/24/17 09:00 06/23/17 08:59 05/25/17 08:41 Methylprednisolone Sodium Succinate (Solu-MEDROL) 60 mg Q12HR IVP 05/25/17 21:00 06/22/17 17:59 05/25/17 21:06 Nicotine (Nicoderm) 1 patch Q24H TDERMAL 05/23/17 13:00 06/22/17 12:59 05/25/17 12:58 Nitroglycerin (Ntg) 0.4 mg Q5M PRN SL Prn Chest Pain 05/23/17 08:45 06/22/17 08:44 Nitroglycerin (Ntg) 1 patch Q24H TDERMAL 05/24/17 10:15 06/23/17 10:14 05/25/17 10:28 Ondansetron HCl (Zofran) 4 mg Q6H PRN IVP Nausea & Vomiting 05/23/17 08:45 06/22/17 08:44 Pantoprazole (Protonix) 40 mg BID ORAL 05/24/17 18:00 06/22/17 10:59 05/25/17 17:11 Promethazine HCl/ Codeine (Phenergan with Codeine) 5 ml Q4H PRN ORAL For Cough 05/23/17 12:15 06/22/17 12:14 05/25/17 22:06 Quetiapine Fumarate (SEROquel) 100 mg DAILY ORAL 05/24/17 09:00 06/23/17 08:59 05/25/17 08:39 Sevelamer Carbonate (Renvela) 2,400 mg THREE TIMES A DAY ORAL 05/24/17 13:00 06/23/17 12:59 05/25/17 17:11 Theophylline (Moe-Dur) 100 mg DAILY ORAL 05/24/17 09:00 06/23/17 08:59 05/25/17 08:39 Rohan ArevaloMassena [facility] HospitalMariela Fong NP May 26, 2017 09:05
[2017-05-26] MEDS: Solu-MEDROL 125mg Inj IVP SCH (10:02)
[2017-05-26] MEDS: ARIPiprazole 10mg tab ORAL SCH (10:03)
[2017-05-26] MEDS: Theophylline ER 100mg ORAL SCH (10:03)
[2017-05-26] MEDS: Docusate 100mg cap ORAL SCH ×3 (10:04→18:21)
[2017-05-26] MEDS: Aspirin Baby 81mg ORAL SCH (10:04)
--- NOTE | 2017-05-26 10:05 | Internal Med Progress Note ---
Subjective Date of Service: May 26, 2017 Physician Name Zoey Pires Attending Physician Chaitanya Weinstein MD Current Medications Medications (Trade) Dose Ordered Sig/Jose Route PRN Reason Start Time Stop Time Status Last Admin Dose Admin Acetaminophen/ Hydrocodone Bitart ([place] 10/325) 1 tab Q6H PRN ORAL Pain Scale (6-10) 05/23/17 08:45 05/30/17 08:44 05/25/17 22:05 Albuterol/ Ipratropium (Albuterol/ Ipratropium) 3 ml Q4HRT HHN 05/24/17 15:00 05/29/17 14:59 05/26/17 07:46 Alprazolam (Xanax) 2 mg Q6H PRN ORAL For Anxiety 05/24/17 14:00 05/31/17 13:59 05/24/17 16:37 Aripiprazole (Abilify) 10 mg DAILY ORAL 05/23/17 11:00 06/22/17 10:59 05/25/17 08:40 Aspirin (ASA) 81 mg DAILY ORAL 05/23/17 11:00 06/22/17 10:59 05/25/17 08:40 Atorvastatin Calcium (Lipitor) 80 mg QHS ORAL 05/23/17 21:00 06/22/17 20:59 05/25/17 21:06 Bupropion HCl (Wellbutrin) 100 mg BID ORAL 05/23/17 18:00 06/22/17 17:59 05/25/17 17:11 Calcium Acetate (Phoslo) 667 mg EVERY 8 HOURS ORAL 05/23/17 22:00 06/22/17 21:59 05/26/17 06:23 Carisoprodol (Soma) 350 mg TIDPRN PRN ORAL For Pain (muscle spasms) 05/25/17 14:15 06/24/17 14:14 Clonidine HCl (Catapres Tab) 0.1 mg Q4H PRN ORAL For High Blood Pressure 05/23/17 08:45 06/22/17 08:44 Diphenhydramine HCl (Benadryl) 25 mg Q6H PRN ORAL Itching 05/23/17 08:45 06/22/17 08:44 Docusate Sodium (Colace) 100 mg THREE TIMES A DAY ORAL 05/24/17 13:00 06/23/17 12:59 Donepezil HCl (Aricept) 5 mg QHS ORAL 05/23/17 21:00 06/22/17 20:59 05/25/17 21:06 Folic Acid (Folate) 1 mg DAILY ORAL 05/23/17 10:00 06/22/17 09:59 05/25/17 08:40 Heparin Sodium (Porcine) (Heparin 5000 units/ml) 5,000 units EVERY 12 HOURS SUBQ 05/23/17 21:00 06/22/17 20:59 05/25/17 21:08 Hydralazine HCl (Apresoline) 25 mg Q6HR ORAL 05/25/17 13:15 06/24/17 13:14 05/26/17 06:24 Levofloxacin (Levaquin) 500 mg Q48H ORAL 05/25/17 09:00 06/01/17 23:59 05/25/17 08:40 Lisinopril (Prinivil) 40 mg DAILY ORAL 05/24/17 09:00 06/23/17 08:59 05/25/17 08:41 Methylprednisolone Sodium Succinate (Solu-MEDROL) 60 mg Q12HR IVP 05/25/17 21:00 06/22/17 17:59 05/26/17 10:02 Nicotine (Nicoderm) 1 patch Q24H TDERMAL 05/23/17 13:00 06/22/17 12:59 05/25/17 12:58 Nitroglycerin (Ntg) 0.4 mg Q5M PRN SL Prn Chest Pain 05/23/17 08:45 06/22/17 08:44 Nitroglycerin (Ntg) 1 patch Q24H TDERMAL 05/24/17 10:15 06/23/17 10:14 05/25/17 10:28 Ondansetron HCl (Zofran) 4 mg Q6H PRN IVP Nausea & Vomiting 05/23/17 08:45 06/22/17 08:44 Pantoprazole (Protonix) 40 mg BID ORAL 05/24/17 18:00 06/22/17 10:59 05/25/17 17:11 Promethazine HCl/ Codeine (Phenergan with Codeine) 5 ml Q4H PRN ORAL For Cough 05/23/17 12:15 06/22/17 12:14 05/25/17 22:06 Quetiapine Fumarate (SEROquel) 100 mg DAILY ORAL 05/24/17 09:00 06/23/17 08:59 05/25/17 08:39 Sevelamer Carbonate (Renvela) 2,400 mg THREE TIMES A DAY ORAL 05/24/17 13:00 06/23/17 12:59 05/25/17 17:11 Theophylline (Moe-Dur) 100 mg DAILY ORAL 05/24/17 09:00 06/23/17 08:59 05/25/17 08:39 Allergies: Coded Allergies: No Known Allergies (Unverified , 10/24/15) ROS Limited/Unobtainable: No Constitutional: Reports: no symptoms HEENT: Reports: no symptoms Cardiovascular: Reports: no symptoms Respiratory: Reports: no symptoms Gastrointestinal/Abdominal: Reports: no symptoms Genitourinary: Reports: no symptoms Neurologic/Psychiatric: Reports: no symptoms Subjective 57 YO M admitted with chest pain. Now elevated troponin. Cover for Int Med Dr Weinstein. Await cardiolite stress test today Objective Last Vital Signs Date Time Temp Pulse Resp B/P (MAP) Pulse Ox O2 Delivery O2 Flow Rate FiO2 05/26/17 07:56 92 20 96 Nasal Cannula 2.0 05/26/17 07:46 28 05/26/17 06:24 135/81 05/26/17 04:00 98.1 Laboratory Tests Test 05/26/17 06:45 White Blood Count 9.4 K/UL (4.8-10.8) Red Blood Count 3.25 M/UL (4.70-6.10) L Hemoglobin 9.1 G/DL (14.2-18.0) L Hematocrit 29.9 % (42.0-52.0) L Mean Corpuscular Volume 92 FL (80-99) Mean Corpuscular Hemoglobin 28.1 PG (27.0-31.0) Mean Corpuscular Hemoglobin Concent 30.6 G/DL (32.0-36.0) L Red Cell Distribution Width 16.9 % (11.6-14.8) H Platelet Count 101 K/UL (150-450) L Mean Platelet Volume 7.2 FL (6.5-10.1) Neutrophils (%) (Auto) % (45.0-75.0) Lymphocytes (%) (Auto) % (20.0-45.0) Monocytes (%) (Auto) % (1.0-10.0) Eosinophils (%) (Auto) % (0.0-3.0) Basophils (%) (Auto) % (0.0-2.0) Differential Total Cells Counted 100 Neutrophils % (Manual) 94 % (45-75) H Lymphocytes % (Manual) 3 % (20-45) L Monocytes % (Manual) 3 % (1-10) Eosinophils % (Manual) 0 % (0-3) Basophils % (Manual) 0 % (0-2) Band Neutrophils 0 % (0-8) Platelet Estimate Decreased L Platelet Morphology Normal Hypochromasia 2+ Anisocytosis 1+ Sodium Level 138 MMOL/L (136-145) Potassium Level 5.1 MMOL/L (3.5-5.1) Chloride Level 103 MMOL/L (98-107) Carbon Dioxide Level 23 MMOL/L (21-32) Anion Gap 12 mmol/L (5-15) Blood Urea Nitrogen 103 mg/dL (7-18) H Creatinine 9.3 MG/DL (0.55-1.30) H Estimat Glomerular Filtration Rate 7.2 mL/min (>60) Glucose Level 137 MG/DL (74-106) H Calcium Level 8.6 MG/DL (8.5-10.1) Microbiology Date/Time Source Procedure Growth Status 05/25/17 00:00 Sputum Gram Stain Pending Resulted 05/25/17 00:00 Sputum Culture - Preliminary Staphylococcus Aureus Resulted Intake and Output 05/25/17 05/26/17 19:00 07:00 Intake Total 700 ml Balance 700 ml Intake Oral 700 ml # Voids 1 2 Objective General Appearance: WD/WN, no apparent distress, alert EENT: PERRL/EOMI, normal ENT inspection Neck: non-tender, normal alignment, supple, normal inspection Cardiovascular: normal peripheral pulses, normal rate, regular rhythm, no gallop/murmur, no JVD Respiratory/Chest: chest wall non-tender, lungs clear, normal breath sounds, no respiratory distress, no accessory muscle use Abdomen: normal bowel sounds, non tender, soft, no organomegaly, no mass Extremities: normal range of motion, non-tender 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 (2) HTN (hypertension) Assessment & Plan: Cont norvasc, coreg and clonidine. (3) CHF (congestive heart failure) Assessment & Plan: ?volume overload?-see cardiology note. (4) Chest pain Assessment & Plan: Await cardiolite stress test today. See cardiology note. (5) Elevated troponin Assessment & Plan: See cardiology note. (6) ESRD (end stage renal disease) on dialysis (7) Purulent bronchitis Assessment & Plan: H/O pneumonia. Cont levaquim per pulmonary Status: stable ZOEY PIRES May 26, 2017 10:04
[2017-05-26] MEDS: Heparin 5000 units/ml inj SUBQ SCH ×2 (10:10→21:00)
[2017-05-26 12:00] VITALS: BP 157/98
--- NOTE | 2017-05-26 13:41 | Nephrology Progress Note ---
Assessment/Plan Problem List: (1) Hyperkalemia (2) ESRD (end stage renal disease) on dialysis (3) Elevated troponin (4) HTN (hypertension) Assessment elevated troponin r/o ACS chest pain COPD exacerbation HTN urgency Cardiomyopathy CHF L AICD ESRD, on HD anemia of chronic kidney disease Hx of CVA Plan Plan: Had HD 05/24 next 05/27 Had One dose Kayexelate- On Phos binders Monitor lytes and HD as needed Optimize cardiac status Subjective ROS Limited/Unobtainable: No Constitutional: Reports: malaise Objective Objective Last 24 Hour Vital Signs Date Time Temp Pulse Resp B/P (MAP) Pulse Ox O2 Delivery O2 Flow Rate FiO2 05/26/17 12:00 97.0 90 20 157/98 97 Nasal Cannula 2.0 05/26/17 11:49 90 20 100 Nasal Cannula 2.0 05/26/17 11:39 89 20 98 Nasal Cannula 2.0 28 05/26/17 08:00 97.7 80 21 148/85 95 Nasal Cannula 2.0 05/26/17 08:00 89 05/26/17 07:56 92 20 96 Nasal Cannula 2.0 05/26/17 07:46 90 20 94 Nasal Cannula 2.0 05/26/17 07:45 Nasal Cannula 2.0 05/26/17 07:44 94 Nasal Cannula 2.0 05/26/17 06:24 135/81 05/26/17 04:00 83 05/26/17 04:00 98.1 85 20 135/81 94 Nasal Cannula 2.0 05/26/17 03:19 Nasal Cannula 05/26/17 03:18 Nasal Cannula 05/26/17 00:50 131/88 05/26/17 00:00 98.6 82 18 131/88 100 Nasal Cannula 2.0 05/26/17 00:00 90 05/25/17 22:40 83 20 98 Nasal Cannula 2.0 28 05/25/17 22:33 82 20 93 Nasal Cannula 2.0 28 05/25/17 20:00 88 05/25/17 20:00 97.3 81 20 137/89 97 Nasal Cannula 2.0 05/25/17 19:15 81 20 99 Nasal Cannula 2.0 28 05/25/17 19:08 78 20 98 Nasal Cannula 2.0 28 05/25/17 17:11 141/84 2/18/18 16:00 89 05/25/17 16:00 96.3 82 18 141/84 94 Nasal Cannula 2.0 05/25/17 15:05 80 20 99 Nasal Cannula 2.0 28 05/25/17 14:56 83 20 100 Nasal Cannula 2.0 28 05/25/17 13:58 134/78 Intake and Output 05/25/17 05/26/17 19:00 07:00 Intake Total 700 ml Balance 700 ml Intake Oral 700 ml # Voids 1 2 Laboratory Tests 05/26/17 06:45: White Blood Count 9.4, Red Blood Count 3.25L, Hemoglobin 9.1L, Hematocrit 29.9L , Mean Corpuscular Volume 92, Mean Corpuscular Hemoglobin 28.1, Mean Corpuscular Hemoglobin Concent 30.6L, Red Cell Distribution Width 16.9H, Platelet Count 101L, Mean Platelet Volume 7.2, Neutrophils (%) (Auto) , Lymphocytes (%) (Auto) , Monocytes (%) (Auto) , Eosinophils (%) (Auto) , Basophils (%) (Auto) , Differential Total Cells Counted 100, Neutrophils % ( Manual) 94H, Lymphocytes % (Manual) 3L, Monocytes % (Manual) 3, Eosinophils % ( Manual) 0, Basophils % (Manual) 0, Band Neutrophils 0, Platelet Estimate DecreasedL, Platelet Morphology Normal, Hypochromasia 2+, Anisocytosis 1+, Sodium Level 138, Potassium Level 5.1, Chloride Level 103, Carbon Dioxide Level 23, Anion Gap 12, Blood Urea Nitrogen 103H, Creatinine 9.3H, Estimat Glomerular Filtration Rate 7.2, Glucose Level 137H, Calcium Level 8.6 Height (Feet): 5 Height (Inches): 7.00 Weight (Pounds): 239 JAYDALIAM May 26, 2017 13:41
[2017-05-26] MEDS: Lisinopril 20mg tab ORAL SCH (13:55)
[2017-05-26] MEDS: Nitroglycerin Patch 0.4mg TDERMAL SCH (13:56)
[2017-05-26 16:00] VITALS: BP 156/84
--- NOTE | 2017-05-26 16:47 | Diagnostic Imaging Report ---
Indications: Chest pain Technique: Single day single isotope protocol utilized. Initially, resting images obtained using IV administration 10.2 millicuries 99M technetium Myoview. Subsequently, patient underwent lexiscan stress testing. See cardiology report for details. During Lexiscan infusion, IV administration 30.3 mCi 99 M technetium Myoview. SPECT and planar images obtained. SPECT images gated to 8 phases of the cardiac cycle were also obtained, and reformatted into cine images for evaluation of ejection fraction. Comparison: none Findings: Presence or absence of symptoms or effusion not described in cardiology report. Per cardiology report, resting EKG demonstrates sinus rhythm, cannot rule out anterior ME-age indeterminant. Presence or absence of ST changes is not described. Imaging demonstrates decreased perfusion in the inferolateral wall near the apex. This equivocally demonstrates some peripheral reperfusion on the resting images. No other fixed nor reversible poststress perfusion defects are demonstrated. No left cardiac chamber dilatation. Calculated post stress ejection fraction 45%. There is relative hypokinesis of the inferior wall and to some extent septal wall Impression: Nonischemic clinical response to pharmacologic stress, per cardiology report Nonischemic electrocardiographic response to pharmacologic stress, per cardiology report Inferolateral infarct near the apex with equivocally a small amount of reversible estuardo-infarct ischemia Calculated post stress ejection fraction 45%
[2017-05-26] MEDS: Promethazine/Codeine 5ml UD ORAL PRN (18:22)
[2017-05-26] MEDS: Atorvastatin 80mg tab ORAL SCH (21:49)
[2017-05-26] MEDS: Donepezil 5mg Tab ORAL SCH (21:50)
[2017-05-26 22:28] VITALS: BP 147/95
[2017-05-26] MEDS: HYDROcodone/Acetamin 10/325 tab ORAL PRN (23:40)
[2017-05-27] VITALS (8 sets, daily range): BP systolic 143–166; BP diastolic 67–91
[2017-05-27] MEDS: HydrALAZINE 25mg tab ORAL SCH ×2 (00:33→06:10)
[2017-05-27] MEDS: Albuterol/Ipratropium 3ml neb HHN SCH ×6 (03:20→23:32)
[2017-05-27] MEDS: Calcium Acetate 667mg Tab ORAL SCH ×2 (06:10→18:17)
[2017-05-27 08:50] LABS: HEMATOCRIT 28.9 % (42.0-52.0); HEMOGLOBIN 9.1 G/DL (14.2-18.0); MEAN CORPUSCULAR VOLUME 90 FL (80-99); PLATELET COUNT 94 K/UL (150-450); RED CELL DISTRIBUTION WIDTH 16.9 % (11.6-14.8); WHITE BLOOD COUNT 8.2 K/UL (4.8-10.8)
[2017-05-27] MEDS: Heparin 5000 units/ml inj SUBQ SCH ×2 (09:00→21:00)
[2017-05-27] MEDS ORDERED: Solu-MEDROL 125mg Inj IVP SCH (09:00)
[2017-05-27 09:20] LABS: ANION GAP 15 mmol/L (5-15); BLOOD UREA NITROGEN 124 mg/dL (7-18); CALCIUM 8.4 MG/DL (8.5-10.1); CARBON DIOXIDE 20 MMOL/L (21-32); CHLORIDE 101 MMOL/L (98-107); CREATININE 10.8 MG/DL (0.55-1.30); POTASSIUM 5.2 MMOL/L (3.5-5.1); SODIUM 136 MMOL/L (136-145)
[2017-05-27 09:24] LABS: ALANINE AMINOTRANSFERASE 28 U/L (12-78); ALBUMIN 2.8 G/DL (3.4-5.0); ALKALINE PHOSPHATASE 118 U/L (46-116); ASPARTATE AMINO TRANSFERASE 14 U/L (15-37); BILIRUBIN,DIRECT 0.1 MG/DL (0.0-0.3); BILIRUBIN,TOTAL 0.4 MG/DL (0.2-1.0); GAMMA GLUTAMYL TRANSPEPTIDASE 137 U/L (5-85); PHOSPHORUS 7.3 MG/DL (2.5-4.9)
[2017-05-27] MEDS: Aspirin Baby 81mg ORAL SCH (09:30)
[2017-05-27] MEDS: ARIPiprazole 10mg tab ORAL SCH (09:31)
[2017-05-27] MEDS: Levofloxacin 500mg tab ORAL SCH (09:32)
[2017-05-27] MEDS: Docusate 100mg cap ORAL SCH ×3 (09:32→18:16)
[2017-05-27] MEDS: Lisinopril 20mg tab ORAL SCH (09:33)
[2017-05-27] MEDS: Nitroglycerin Patch 0.4mg TDERMAL SCH (10:22)
--- NOTE | 2017-05-27 11:23 | Nephrology Progress Note ---
Assessment/Plan Problem List: (1) Hyperkalemia (2) ESRD (end stage renal disease) on dialysis (3) Elevated troponin (4) HTN (hypertension) Assessment elevated troponin r/o ACS chest pain COPD exacerbation HTN urgency Cardiomyopathy CHF L AICD ESRD, on HD anemia of chronic kidney disease Hx of CVA Plan Plan: Had HD 05/24 next 05/27 BP meds adjusted IV steroid to PO and taper Had One dose Kayexelate- On Phos binders Monitor lytes and HD as needed Optimize cardiac status Subjective ROS Limited/Unobtainable: No Constitutional: Reports: malaise Objective Objective Last 24 Hour Vital Signs Date Time Temp Pulse Resp B/P (MAP) Pulse Ox O2 Delivery O2 Flow Rate FiO2 05/27/17 10:50 98 20 97 Nasal Cannula 2.0 28 05/27/17 10:44 96 20 94 Nasal Cannula 2.0 28 05/27/17 10:22 155/90 05/27/17 09:33 155/90 05/27/17 08:00 92 05/27/17 08:00 97.5 97 20 155/90 93 Room Air 05/27/17 07:20 Nasal Cannula 2.0 28 05/27/17 07:19 126 20 89 Room Air 21 05/27/17 07:18 89 Room Air 21 05/27/17 07:18 Nasal Cannula 2.0 28 05/27/17 06:10 147/79 05/27/17 04:10 98.0 88 18 143/67 96 2.0 05/27/17 04:00 95 05/27/17 04:00 20 05/27/17 03:40 92 18 96 Nasal Cannula 2.0 28 05/27/17 03:19 28 05/27/17 03:19 92 18 96 Nasal Cannula 2.0 28 05/27/17 00:33 150/88 05/27/17 00:00 97.5 92 18 150/82 96 2.0 05/27/17 00:00 92 05/26/17 23:30 Nasal Cannula 05/26/17 23:30 Nasal Cannula 05/26/17 22:28 97.5 93 21 147/95 95 2.0 05/26/17 20:00 95 05/26/17 19:36 96 20 93 Nasal Cannula 2.0 28 05/26/17 19:12 28 05/26/17 19:12 96 20 93 Nasal Cannula 2.0 28 05/26/17 19:11 Nasal Cannula 2.0 28 05/26/17 19:11 93 Nasal Cannula 2.0 28 05/26/17 18:22 156/84 05/26/17 16:00 96 05/26/17 16:00 97.9 92 20 156/84 92 Nasal Cannula 2.0 05/26/17 15:39 Nasal Cannula 05/26/17 15:38 Nasal Cannula 05/26/17 13:56 157/98 05/26/17 13:55 157/98 05/26/17 13:55 157/98 05/26/17 12:00 86 05/26/17 12:00 97.0 90 20 157/98 97 Nasal Cannula 2.0 05/26/17 11:49 90 20 100 Nasal Cannula 2.0 05/26/17 11:39 89 20 98 Nasal Cannula 2.0 28 Intake and Output 05/26/17 05/27/17 19:00 07:00 Intake Total 480 ml 400 ml Balance 480 ml 400 ml Intake Oral 480 ml 400 ml Laboratory Tests 05/27/17 08:07: White Blood Count 8.2, Red Blood Count 3.20L, Hemoglobin 9.1L, Hematocrit 28.9L , Mean Corpuscular Volume 90, Mean Corpuscular Hemoglobin 28.4, Mean Corpuscular Hemoglobin Concent 31.4L, Red Cell Distribution Width 16.9H, Platelet Count 94L, Mean Platelet Volume 7.7, Neutrophils (%) (Auto) , Lymphocytes (%) (Auto) , Monocytes (%) (Auto) , Eosinophils (%) (Auto) , Basophils (%) (Auto) , Differential Total Cells Counted 100, Neutrophils % ( Manual) 85H, Lymphocytes % (Manual) 9L, Monocytes % (Manual) 6, Eosinophils % ( Manual) 0, Basophils % (Manual) 0, Band Neutrophils 0, Platelet Estimate DecreasedL, Platelet Morphology Normal, Hypochromasia 2+, Anisocytosis 1+, Sodium Level 136, Potassium Level 5.2H, Chloride Level 101, Carbon Dioxide Level 20L, Anion Gap 15, Blood Urea Nitrogen 124H, Creatinine 10.8H, Estimat Glomerular Filtration Rate 5.9, Glucose Level 135H, Calcium Level 8.4L, Phosphorus Level 7.3H, Magnesium Level 2.1, Total Bilirubin 0.4, Direct Bilirubin 0.1, Gamma Glutamyl Transpeptidase 137H, Aspartate Amino Transf (AST/ SGOT) 14L, Alanine Aminotransferase (ALT/SGPT) 28, Alkaline Phosphatase 118H, Total Protein 6.1L, Albumin 2.8L Height (Feet): 5 Height (Inches): 7.00 Weight (Pounds): 37 General Appearance: no apparent distress Respiratory/Chest: decreased breath sounds Abdomen: soft LIAM MONTELONGO May 27, 2017 11:23
[2017-05-27] MEDS ORDERED: Metoprolol Tartrate 12.5mg TAB ORAL ONE (12:00)
[2017-05-27] MEDS ORDERED: Calcium Acetate 667mg Tab ORAL SCH (13:00)
[2017-05-27] MEDS: HYDROcodone/Acetamin 10/325 tab ORAL PRN (13:11)
[2017-05-27] MEDS: Promethazine/Codeine 5ml UD ORAL PRN (13:11)
--- NOTE | 2017-05-27 13:43 | Pulmonology Progress Note ---
Assessment/Plan Assessment/Plan ASSESSMENT elevated troponin chest pain COPD exacerbation HTN urgency Cardiomyopathy CHF L AICD ESRD, on HD anemia of chronic kidney disease Hx of CVA PLAN OF CARE tele serial troponin with mild elevation, levels flat ECHO with EF 50-55% with global LV hypokinesis and RVSP of 53 c/w moderate pulm HTN cardio eval noted, likely troponin leak 2 to ESRD ECG lipid panel pillo on ASA, BB prior ECHO with EF 40% medical management with BB, GREGORY BP management with multiple anti-HTN meds nicotine abuse with dependency stress test noted O2 titrate prn HHN ATC and prn fup with CXR IV steroids and taper empiric abx sputum cx if able trial of theophylline a/tussive prn Nicotine patch on Coumadin? reason monitor INR Venous Duplex BLE HD as per nephro monitor renal parameters, correct lytes as needed monitor counts, transfuse pn GI prophylaxis pain management bowel regimen dc plan if ok with cardio case discussed and evaluated by supervising physician Subjective Allergies: Coded Allergies: No Known Allergies (Unverified , 10/24/15) Subjective no chest pain, on o2 via NC, no SOB, improved , intermittent cough, dry, no hemoptysis improving Objective Last 24 Hour Vital Signs Date Time Temp Pulse Resp B/P (MAP) Pulse Ox O2 Delivery O2 Flow Rate FiO2 05/27/17 13:05 92 153/91 05/27/17 10:50 98 20 97 Nasal Cannula 2.0 28 05/27/17 10:44 96 20 94 Nasal Cannula 2.0 28 05/27/17 10:22 155/90 05/27/17 09:33 155/90 05/27/17 08:00 92 05/27/17 08:00 97.5 97 20 155/90 93 Room Air 05/27/17 07:20 Nasal Cannula 2.0 28 05/27/17 07:19 126 20 89 Room Air 21 05/27/17 07:18 89 Room Air 21 05/27/17 07:18 Nasal Cannula 2.0 28 05/27/17 06:10 147/79 05/27/17 04:10 98.0 88 18 143/67 96 2.0 05/27/17 04:00 95 05/27/17 04:00 20 05/27/17 03:40 92 18 96 Nasal Cannula 2.0 28 05/27/17 03:19 28 05/27/17 03:19 92 18 96 Nasal Cannula 2.0 28 05/27/17 00:33 150/88 05/27/17 00:00 97.5 92 18 150/82 96 2.0 05/27/17 00:00 92 05/26/17 23:30 Nasal Cannula 05/26/17 23:30 Nasal Cannula 05/26/17 22:28 97.5 93 21 147/95 95 2.0 05/26/17 20:00 95 05/26/17 19:36 96 20 93 Nasal Cannula 2.0 28 05/26/17 19:12 28 05/26/17 19:12 96 20 93 Nasal Cannula 2.0 28 05/26/17 19:11 Nasal Cannula 2.0 28 05/26/17 19:11 93 Nasal Cannula 2.0 28 05/26/17 18:22 156/84 05/26/17 16:00 96 05/26/17 16:00 97.9 92 20 156/84 92 Nasal Cannula 2.0 05/26/17 15:39 Nasal Cannula 05/26/17 15:38 Nasal Cannula 05/26/17 13:56 157/98 05/26/17 13:55 157/98 05/26/17 13:55 157/98 Intake and Output 05/26/17 05/27/17 19:00 07:00 Intake Total 480 ml 400 ml Balance 480 ml 400 ml Intake Oral 480 ml 400 ml Objective General Appearance: A/A/O x 4 AA male NAD Lines, tubes and drains: peripheral HEENT: normocephalic, atraumatic, anicteric, mucous membranes moist, PERRL Neck: supple Respiratory/Chest: decreased breath sounds, few isolated exp wheezes , L chest AICD Cardiovascular/Chest: normal rate, regular rhythm - SR on tele, L AV shunt + bruit/thrill Abdomen: normal bowel sounds, non tender, soft - obese Skin Exam: warm/dry Neurologic: alert Musculoskeletal: normal muscle bulk Microbiology Date/Time Source Procedure Growth Status 05/25/17 00:00 Sputum Gram Stain - Final Resulted 05/25/17 00:00 Sputum Culture - Preliminary Staphylococcus Aureus - Mrsa Resulted Laboratory Tests 05/27/17 08:07: White Blood Count 8.2, Red Blood Count 3.20L, Hemoglobin 9.1L, Hematocrit 28.9L , Mean Corpuscular Volume 90, Mean Corpuscular Hemoglobin 28.4, Mean Corpuscular Hemoglobin Concent 31.4L, Red Cell Distribution Width 16.9H, Platelet Count 94L, Mean Platelet Volume 7.7, Neutrophils (%) (Auto) , Lymphocytes (%) (Auto) , Monocytes (%) (Auto) , Eosinophils (%) (Auto) , Basophils (%) (Auto) , Differential Total Cells Counted 100, Neutrophils % ( Manual) 85H, Lymphocytes % (Manual) 9L, Monocytes % (Manual) 6, Eosinophils % ( Manual) 0, Basophils % (Manual) 0, Band Neutrophils 0, Platelet Estimate DecreasedL, Platelet Morphology Normal, Hypochromasia 2+, Anisocytosis 1+, Sodium Level 136, Potassium Level 5.2H, Chloride Level 101, Carbon Dioxide Level 20L, Anion Gap 15, Blood Urea Nitrogen 124H, Creatinine 10.8H, Estimat Glomerular Filtration Rate 5.9, Glucose Level 135H, Calcium Level 8.4L, Phosphorus Level 7.3H, Magnesium Level 2.1, Total Bilirubin 0.4, Direct Bilirubin 0.1, Gamma Glutamyl Transpeptidase 137H, Aspartate Amino Transf (AST/ SGOT) 14L, Alanine Aminotransferase (ALT/SGPT) 28, Alkaline Phosphatase 118H, Total Protein 6.1L, Albumin 2.8L Current Medications Medications (Trade) Dose Ordered Sig/Jose Route PRN Reason Start Time Stop Time Status Last Admin Dose Admin Acetaminophen/ Hydrocodone Bitart ([place] 10/325) 1 tab Q6H PRN ORAL Pain Scale (6-10) 05/23/17 08:45 05/30/17 08:44 05/27/17 13:11 Albuterol/ Ipratropium (Albuterol/ Ipratropium) 3 ml Q4HRT HHN 05/24/17 15:00 05/29/17 14:59 05/27/17 10:43 Alprazolam (Xanax) 2 mg Q6H PRN ORAL For Anxiety 05/24/17 14:00 05/31/17 13:59 05/24/17 16:37 Aripiprazole (Abilify) 10 mg DAILY ORAL 05/23/17 11:00 06/22/17 10:59 05/27/17 09:31 Aspirin (ASA) 81 mg DAILY ORAL 05/23/17 11:00 06/22/17 10:59 05/27/17 09:30 Atorvastatin Calcium (Lipitor) 80 mg QHS ORAL 05/23/17 21:00 06/22/17 20:59 05/26/17 21:49 Bupropion HCl (Wellbutrin) 100 mg BID ORAL 05/23/17 18:00 06/22/17 17:59 05/27/17 09:31 Calcium Acetate (Phoslo) 1,334 mg TID ORAL 05/27/17 13:00 06/22/17 21:59 05/27/17 13:05 Carisoprodol (Soma) 350 mg TIDPRN PRN ORAL For Pain (muscle spasms) 05/25/17 14:15 06/24/17 14:14 Clonidine HCl (Catapres Tab) 0.1 mg Q4H PRN ORAL For High Blood Pressure 05/23/17 08:45 06/22/17 08:44 Diphenhydramine HCl (Benadryl) 25 mg Q6H PRN ORAL Itching 05/23/17 08:45 06/22/17 08:44 Docusate Sodium (Colace) 100 mg THREE TIMES A DAY ORAL 05/24/17 13:00 06/23/17 12:59 05/27/17 13:04 Donepezil HCl (Aricept) 5 mg QHS ORAL 05/23/17 21:00 06/22/17 20:59 05/26/17 21:50 Heparin Sodium (Porcine) (Heparin 5000 units/ml) 5,000 units EVERY 12 HOURS SUBQ 05/23/17 21:00 06/22/17 20:59 05/26/17 10:10 Hydralazine HCl (Apresoline) 50 mg Q8HR ORAL 05/27/17 14:00 06/24/17 13:14 Levofloxacin (Levaquin) 500 mg Q48H ORAL 05/25/17 09:00 06/01/17 23:59 05/27/17 09:32 Lisinopril (Prinivil) 40 mg DAILY ORAL 05/24/17 09:00 06/23/17 08:59 05/27/17 09:33 Metoprolol Tartrate (Lopressor) 12.5 mg Q12HR ORAL 05/27/17 21:00 06/26/17 20:59 Nicotine (Nicoderm) 1 patch Q24H TDERMAL 05/23/17 13:00 06/22/17 12:59 05/27/17 13:07 Nitroglycerin (Ntg) 0.4 mg Q5M PRN SL Prn Chest Pain 05/23/17 08:45 06/22/17 08:44 Nitroglycerin (Ntg) 1 patch Q24H TDERMAL 05/24/17 10:15 06/23/17 10:14 05/27/17 10:22 Ondansetron HCl (Zofran) 4 mg Q6H PRN IVP Nausea & Vomiting 05/23/17 08:45 06/22/17 08:44 Pantoprazole (Protonix) 40 mg BID ORAL 05/24/17 18:00 06/22/17 10:59 05/27/17 09:31 Prednisone (predniSONE) 40 mg DAILY ORAL 05/28/17 09:00 06/27/17 08:59 Promethazine HCl/ Codeine (Phenergan with Codeine) 5 ml Q4H PRN ORAL For Cough 05/23/17 12:15 06/22/17 12:14 05/27/17 13:11 Quetiapine Fumarate (SEROquel) 100 mg DAILY ORAL 05/24/17 09:00 06/23/17 08:59 05/27/17 09:31 Sevelamer Carbonate (Renvela) 2,400 mg THREE TIMES A DAY ORAL 05/24/17 13:00 06/23/17 12:59 05/27/17 13:05 [facility] Fong NP May 27, 2017 13:43
[2017-05-27] MEDS ORDERED: HydrALAZINE 50mg tab ORAL SCH (14:00)
--- NOTE | 2017-05-27 15:29 | Cardiology Report ---
APPROVED REPORT EKG Measurement Heart [id number] VA 176P55 [id number] Normal sinus rhythm with sinus arrhythmia Possible Left atrial enlargement Cannot rule out Anterior infarct, age undetermined Abnormal ECG
--- NOTE | 2017-05-27 15:47 | Internal Med Progress Note ---
Subjective Date of Service: May 27, 2017 Physician Name Ellis Pires Attending Physician Chaitanya Weinstein MD Current Medications Medications (Trade) Dose Ordered Sig/Jose Route PRN Reason Start Time Stop Time Status Last Admin Dose Admin Acetaminophen/ Hydrocodone Bitart ([place] 10/325) 1 tab Q6H PRN ORAL Pain Scale (6-10) 05/23/17 08:45 05/30/17 08:44 05/27/17 13:11 Albuterol/ Ipratropium (Albuterol/ Ipratropium) 3 ml Q4HRT HHN 05/24/17 15:00 05/29/17 14:59 05/27/17 15:08 Alprazolam (Xanax) 2 mg Q6H PRN ORAL For Anxiety 05/24/17 14:00 05/31/17 13:59 05/24/17 16:37 Aripiprazole (Abilify) 10 mg DAILY ORAL 05/23/17 11:00 06/22/17 10:59 05/27/17 09:31 Aspirin (ASA) 81 mg DAILY ORAL 05/23/17 11:00 06/22/17 10:59 05/27/17 09:30 Atorvastatin Calcium (Lipitor) 80 mg QHS ORAL 05/23/17 21:00 06/22/17 20:59 05/26/17 21:49 Bupropion HCl (Wellbutrin) 100 mg BID ORAL 05/23/17 18:00 06/22/17 17:59 05/27/17 09:31 Calcium Acetate (Phoslo) 1,334 mg TID ORAL 05/27/17 13:00 06/22/17 21:59 05/27/17 13:05 Carisoprodol (Soma) 350 mg TIDPRN PRN ORAL For Pain (muscle spasms) 05/25/17 14:15 06/24/17 14:14 Clonidine HCl (Catapres Tab) 0.1 mg Q4H PRN ORAL For High Blood Pressure 05/23/17 08:45 06/22/17 08:44 Diphenhydramine HCl (Benadryl) 25 mg Q6H PRN ORAL Itching 05/23/17 08:45 06/22/17 08:44 Docusate Sodium (Colace) 100 mg THREE TIMES A DAY ORAL 05/24/17 13:00 06/23/17 12:59 05/27/17 13:04 Donepezil HCl (Aricept) 5 mg QHS ORAL 05/23/17 21:00 06/22/17 20:59 05/26/17 21:50 Heparin Sodium (Porcine) (Heparin 5000 units/ml) 5,000 units EVERY 12 HOURS SUBQ 05/23/17 21:00 06/22/17 20:59 05/26/17 10:10 Hydralazine HCl (Apresoline) 50 mg Q8HR ORAL 05/27/17 14:00 06/24/17 13:14 05/27/17 14:15 Levofloxacin (Levaquin) 500 mg Q48H ORAL 05/25/17 09:00 06/01/17 23:59 05/27/17 09:32 Lisinopril (Prinivil) 40 mg DAILY ORAL 05/24/17 09:00 06/23/17 08:59 05/27/17 09:33 Metoprolol Tartrate (Lopressor) 12.5 mg Q12HR ORAL 05/27/17 21:00 06/26/17 20:59 Nicotine (Nicoderm) 1 patch Q24H TDERMAL 05/23/17 13:00 06/22/17 12:59 05/27/17 13:07 Nitroglycerin (Ntg) 0.4 mg Q5M PRN SL Prn Chest Pain 05/23/17 08:45 06/22/17 08:44 Nitroglycerin (Ntg) 1 patch Q24H TDERMAL 05/24/17 10:15 06/23/17 10:14 05/27/17 10:22 Ondansetron HCl (Zofran) 4 mg Q6H PRN IVP Nausea & Vomiting 05/23/17 08:45 06/22/17 08:44 Pantoprazole (Protonix) 40 mg BID ORAL 05/24/17 18:00 06/22/17 10:59 05/27/17 09:31 Prednisone (predniSONE) 40 mg DAILY ORAL 05/28/17 09:00 06/27/17 08:59 Promethazine HCl/ Codeine (Phenergan with Codeine) 5 ml Q4H PRN ORAL For Cough 05/23/17 12:15 06/22/17 12:14 05/27/17 13:11 Quetiapine Fumarate (SEROquel) 100 mg DAILY ORAL 05/24/17 09:00 06/23/17 08:59 05/27/17 09:31 Sevelamer Carbonate (Renvela) 2,400 mg THREE TIMES A DAY ORAL 05/24/17 13:00 06/23/17 12:59 05/27/17 13:05 Allergies: Coded Allergies: No Known Allergies (Unverified , 10/24/15) Subjective 57 YO M admitted with chest pain. Now elevated troponin. Cover for Int Med Dr Weinstein. Objective Last Vital Signs Date Time Temp Pulse Resp B/P (MAP) Pulse Ox O2 Delivery O2 Flow Rate FiO2 05/27/17 15:15 87 20 96 Room Air 21 05/27/17 15:09 2.0 05/27/17 14:15 135/72 05/27/17 12:00 97.2 Laboratory Tests Test 05/27/17 08:07 White Blood Count 8.2 K/UL (4.8-10.8) Red Blood Count 3.20 M/UL (4.70-6.10) L Hemoglobin 9.1 G/DL (14.2-18.0) L Hematocrit 28.9 % (42.0-52.0) L Mean Corpuscular Volume 90 FL (80-99) Mean Corpuscular Hemoglobin 28.4 PG (27.0-31.0) Mean Corpuscular Hemoglobin Concent 31.4 G/DL (32.0-36.0) L Red Cell Distribution Width 16.9 % (11.6-14.8) H Platelet Count 94 K/UL (150-450) L Mean Platelet Volume 7.7 FL (6.5-10.1) Neutrophils (%) (Auto) % (45.0-75.0) Lymphocytes (%) (Auto) % (20.0-45.0) Monocytes (%) (Auto) % (1.0-10.0) Eosinophils (%) (Auto) % (0.0-3.0) Basophils (%) (Auto) % (0.0-2.0) Differential Total Cells Counted 100 Neutrophils % (Manual) 85 % (45-75) H Lymphocytes % (Manual) 9 % (20-45) L Monocytes % (Manual) 6 % (1-10) Eosinophils % (Manual) 0 % (0-3) Basophils % (Manual) 0 % (0-2) Band Neutrophils 0 % (0-8) Platelet Estimate Decreased L Platelet Morphology Normal Hypochromasia 2+ Anisocytosis 1+ Sodium Level 136 MMOL/L (136-145) Potassium Level 5.2 MMOL/L (3.5-5.1) H Chloride Level 101 MMOL/L (98-107) Carbon Dioxide Level 20 MMOL/L (21-32) L Anion Gap 15 mmol/L (5-15) Blood Urea Nitrogen 124 mg/dL (7-18) H Creatinine 10.8 MG/DL (0.55-1.30) H Estimat Glomerular Filtration Rate 5.9 mL/min (>60) Glucose Level 135 MG/DL (74-106) H Calcium Level 8.4 MG/DL (8.5-10.1) L Phosphorus Level 7.3 MG/DL (2.5-4.9) H Magnesium Level 2.1 MG/DL (1.8-2.4) Total Bilirubin 0.4 MG/DL (0.2-1.0) Direct Bilirubin 0.1 MG/DL (0.0-0.3) Gamma Glutamyl Transpeptidase 137 U/L (5-85) H Aspartate Amino Transf (AST/SGOT) 14 U/L (15-37) L Alanine Aminotransferase (ALT/SGPT) 28 U/L (12-78) Alkaline Phosphatase 118 U/L (46-116) H Total Protein 6.1 G/DL (6.4-8.2) L Albumin 2.8 G/DL (3.4-5.0) L Microbiology Date/Time Source Procedure Growth Status 05/25/17 00:00 Sputum Gram Stain - Final Resulted 05/25/17 00:00 Sputum Culture - Preliminary Staphylococcus Aureus - Mrsa Resulted Intake and Output 05/26/17 05/27/17 19:00 07:00 Intake Total 480 ml 400 ml Balance 480 ml 400 ml Intake Oral 480 ml 400 ml Objective General Appearance: WD/WN, no apparent distress, alert EENT: PERRL/EOMI, normal ENT inspection Neck: non-tender, normal alignment, supple, normal inspection Cardiovascular: normal peripheral pulses, normal rate, regular rhythm, no gallop/murmur, no JVD Respiratory/Chest: chest wall non-tender, lungs clear, normal breath sounds, no respiratory distress, no accessory muscle use Abdomen: normal bowel sounds, non tender, soft, no organomegaly, no mass Extremities: normal range of motion, non-tender Neurologic: emergency planning and response manager 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, no motor/sensory deficits Skin: normal pigmentation, warm/dry Assessment/Plan Problem List: (1) COPD (chronic obstructive pulmonary disease) Assessment & Plan: See pulm note. (2) HTN (hypertension) Assessment & Plan: Cont norvasc, coreg and clonidine. (3) CHF (congestive heart failure) Assessment & Plan: ?volume overload?-see cardiology note. (4) Chest pain Assessment & Plan: S/P NM cardiac stress test 05/26/17. See cardiology note. (5) Elevated troponin Assessment & Plan: S/P NM myocardial perfusion scan 05/26/17. See cardiology note. (6) ESRD (end stage renal disease) on dialysis (7) Purulent bronchitis Assessment & Plan: H/O pneumonia. Cont levaquim per pulmonary Status: progressing Assessment/Plan Discharge planning: Patient refused long term fac. ELLIS PIRES May 27, 2017 15:47
[2017-05-27] MEDS ORDERED: Nitroglycerin Subl 0.4mg tab SL PRN (17:15)
[2017-05-27] MEDS ORDERED: Promethazine/Codeine 5ml UD ORAL PRN (18:00)
[2017-05-27] MEDS ORDERED: ALPRAZolam 0.5mg tab ORAL PRN (18:00)
[2017-05-27] MEDS ORDERED: DiphenhydrAMINE 25mg/10ml Elixir ORAL PRN (18:00)
[2017-05-27] MEDS ORDERED: HYDROcodone/Acetamin 10/325 tab ORAL PRN (19:00)
[2017-05-27] MEDS: Metoprolol Tartrate 12.5mg TAB ORAL SCH (21:00)
[2017-05-27] MEDS ORDERED: Donepezil 5mg Tab ORAL SCH (21:00)
[2017-05-27] MEDS ORDERED: Atorvastatin 80mg tab ORAL SCH (21:00)
[2017-05-27] MEDS ORDERED: Heparin 5000 units/ml inj SUBQ SCH (21:00)
[2017-05-27] MEDS ORDERED: Metoprolol Tartrate 12.5mg TAB ORAL SCH (21:00)
[2017-05-27] MEDS: HydrALAZINE 50mg tab ORAL SCH (22:00)
--- NOTE | 2017-05-27 23:06 | Cardiology Progress Note ---
Assessment/Plan Assessment/Plan 1. Chest pain, pleuritic, however in face of DM and HTN, hx of prior vascular event, i.e.CVA and slight trop rise, would schedule for MPI. 2. Elevated troponin I level,most likely due to troponin leak due to end-stage renal disease. There are no ECG changes of ischemia. No wall motion abnormalities. 3. Acute HFpEF, continue HD, afterload reduction. Subjective Subjective Sinus rhythm at 92. Objective Last 24 Hour Vital Signs Date Time Temp Pulse Resp B/P (MAP) Pulse Ox O2 Delivery O2 Flow Rate FiO2 05/27/17 22:55 98.0 92 20 148/75 Room Air 98.0 05/27/17 22:55 Room Air 05/27/17 21:00 86 147/88 05/27/17 20:00 97.8 87 21 166/88 91 97.8 05/27/17 19:30 Nasal Cannula 2.0 28 05/27/17 19:30 Nasal Cannula 2.0 28 05/27/17 19:30 92 Nasal Cannula 2.0 28 05/27/17 19:30 Nasal Cannula 2.0 28 05/27/17 19:00 97.8 87 21 166/88 Room Air 97.8 05/27/17 19:00 Room Air 05/27/17 16:00 97.7 86 20 147/88 94 Room Air 97.7 05/27/17 15:15 87 20 96 Room Air 21 05/27/17 15:09 86 20 96 Nasal Cannula 2.0 28 05/27/17 14:15 135/72 05/27/17 13:05 92 153/91 05/27/17 12:00 97.2 92 20 153/91 95 Nasal Cannula 3.0 05/27/17 12:00 97 05/27/17 10:50 98 20 97 Nasal Cannula 2.0 28 05/27/17 10:44 96 20 94 Nasal Cannula 2.0 28 05/27/17 10:22 155/90 05/27/17 09:33 155/90 05/27/17 08:00 92 05/27/17 08:00 97.5 97 20 155/90 93 Room Air 05/27/17 07:20 Nasal Cannula 2.0 28 05/27/17 07:19 126 20 89 Room Air 21 05/27/17 07:18 89 Room Air 21 05/27/17 07:18 Nasal Cannula 2.0 28 05/27/17 06:10 147/79 05/27/17 04:10 98.0 88 18 143/67 96 2.0 05/27/17 04:00 95 05/27/17 04:00 20 05/27/17 03:40 92 18 96 Nasal Cannula 2.0 28 05/27/17 03:19 28 05/27/17 03:19 92 18 96 Nasal Cannula 2.0 28 05/27/17 00:33 150/88 05/27/17 00:00 97.5 92 18 150/82 96 2.0 05/27/17 00:00 92 05/26/17 23:30 Nasal Cannula 05/26/17 23:30 Nasal Cannula Intake and Output 05/26/17 05/27/17 19:00 07:00 Intake Total 480 ml 400 ml Balance 480 ml 400 ml Intake Oral 480 ml 400 ml 2D Echo: EF 55%, Mild LVH, Mod LAE, RVSP 53 mmHg, AICD lead present Laboratory Tests Test 05/27/17 08:07 White Blood Count 8.2 K/UL (4.8-10.8) Red Blood Count 3.20 M/UL (4.70-6.10) L Hemoglobin 9.1 G/DL (14.2-18.0) L Hematocrit 28.9 % (42.0-52.0) L Mean Corpuscular Volume 90 FL (80-99) Mean Corpuscular Hemoglobin 28.4 PG (27.0-31.0) Mean Corpuscular Hemoglobin Concent 31.4 G/DL (32.0-36.0) L Red Cell Distribution Width 16.9 % (11.6-14.8) H Platelet Count 94 K/UL (150-450) L Mean Platelet Volume 7.7 FL (6.5-10.1) Neutrophils (%) (Auto) % (45.0-75.0) Lymphocytes (%) (Auto) % (20.0-45.0) Monocytes (%) (Auto) % (1.0-10.0) Eosinophils (%) (Auto) % (0.0-3.0) Basophils (%) (Auto) % (0.0-2.0) Differential Total Cells Counted 100 Neutrophils % (Manual) 85 % (45-75) H Lymphocytes % (Manual) 9 % (20-45) L Monocytes % (Manual) 6 % (1-10) Eosinophils % (Manual) 0 % (0-3) Basophils % (Manual) 0 % (0-2) Band Neutrophils 0 % (0-8) Platelet Estimate Decreased L Platelet Morphology Normal Hypochromasia 2+ Anisocytosis 1+ Sodium Level 136 MMOL/L (136-145) Potassium Level 5.2 MMOL/L (3.5-5.1) H Chloride Level 101 MMOL/L (98-107) Carbon Dioxide Level 20 MMOL/L (21-32) L Anion Gap 15 mmol/L (5-15) Blood Urea Nitrogen 124 mg/dL (7-18) H Creatinine 10.8 MG/DL (0.55-1.30) H Estimat Glomerular Filtration Rate 5.9 mL/min (>60) Glucose Level 135 MG/DL (74-106) H Calcium Level 8.4 MG/DL (8.5-10.1) L Phosphorus Level 7.3 MG/DL (2.5-4.9) H Magnesium Level 2.1 MG/DL (1.8-2.4) Total Bilirubin 0.4 MG/DL (0.2-1.0) Direct Bilirubin 0.1 MG/DL (0.0-0.3) Gamma Glutamyl Transpeptidase 137 U/L (5-85) H Aspartate Amino Transf (AST/SGOT) 14 U/L (15-37) L Alanine Aminotransferase (ALT/SGPT) 28 U/L (12-78) Alkaline Phosphatase 118 U/L (46-116) H Total Protein 6.1 G/DL (6.4-8.2) L Albumin 2.8 G/DL (3.4-5.0) L Microbiology Date/Time Source Procedure Growth Status 05/25/17 00:00 Sputum Gram Stain - Final Resulted 05/25/17 00:00 Sputum Culture - Preliminary Staphylococcus Aureus - Mrsa Resulted Objective HEENT: Atraumatic and normocephalic. Anicteric. Pupils are equal, round, and reactive to light and accommodation. Conjunctival pallor is present. NECK: JVP cannot be assessed. No carotid bruit. CVS: Normal S1 and S2. Positive S3. A 2/6 mid systolic murmur at the left sternal border. PMI is at fourth intercostal space in the midclavicular line. LUNGS: Bilateral crackles in both bases. ABDOMEN: Soft, nontender, and nondistended. No hepatosplenomegaly. Positive bowel sounds. EXTREMITIES: No evidence of edema, clubbing, or cyanosis. JERO MANZO May 27, 2017 23:06
[2017-05-28] VITALS: BP 160/87
[2017-05-28] MEDS: Albuterol/Ipratropium 3ml neb HHN SCH ×4 (03:00→14:55)
[2017-05-28 04:00] VITALS: BP 163/88
[2017-05-28] MEDS: HydrALAZINE 50mg tab ORAL SCH ×2 (06:07→15:44)
[2017-05-28 07:00] VITALS: BP 155/94
[2017-05-28 08:09] VITALS: BP 155/94
[2017-05-28] MEDS ORDERED: Aspirin Baby 81mg ORAL SCH (09:00)
[2017-05-28] MEDS ORDERED: Lisinopril 20mg tab ORAL SCH (09:00)
[2017-05-28] MEDS ORDERED: ARIPiprazole 10mg tab ORAL SCH (09:00)
[2017-05-28] MEDS ORDERED: Nitroglycerin Patch 0.4mg TDERMAL SCH (10:00)
[2017-05-28] MEDS: Docusate 100mg cap ORAL SCH ×2 (10:22→15:45)
[2017-05-28] MEDS: Calcium Acetate 667mg Tab ORAL SCH ×2 (10:23→15:45)
[2017-05-28] MEDS: Metoprolol Tartrate 12.5mg TAB ORAL SCH (10:24)
[2017-05-28] MEDS: Heparin 5000 units/ml inj SUBQ SCH (10:26)
--- NOTE | 2017-05-28 11:47 | Nephrology Progress Note ---
Assessment/Plan Problem List: (1) Hyperkalemia (2) ESRD (end stage renal disease) on dialysis (3) Elevated troponin (4) HTN (hypertension) Assessment elevated troponin r/o ACS chest pain COPD exacerbation HTN urgency Cardiomyopathy CHF L AICD ESRD, on HD anemia of chronic kidney disease Hx of CVA Plan Plan: Had HD 05/27 next 05/29 BP meds adjusted IV steroid to PO and taper Had One dose Kayexelate- On Phos binders Monitor lytes and HD as needed Optimize cardiac status Subjective ROS Limited/Unobtainable: No Objective Objective Last 24 Hour Vital Signs Date Time Temp Pulse Resp B/P (MAP) Pulse Ox O2 Delivery O2 Flow Rate FiO2 05/28/17 11:39 Room Air 05/28/17 11:38 Room Air 05/28/17 10:24 155/94 05/28/17 10:24 105 155/94 05/28/17 10:21 155/94 05/28/17 08:09 98.4 105 21 155/94 95 Nasal Cannula 2.0 98.4 05/28/17 07:25 98 Nasal Cannula 2.0 28 05/28/17 07:25 Nasal Cannula 2.0 28 05/28/17 07:25 96 20 98 Nasal Cannula 2.0 28 05/28/17 07:20 93 20 95 Nasal Cannula 2.0 28 05/28/17 07:00 155/94 05/28/17 06:07 163/88 05/28/17 05:06 92 20 Nasal Cannula 2.0 28 05/28/17 04:00 98.0 89 21 163/88 89 98.0 05/28/17 03:05 Nasal Cannula 2.0 28 05/28/17 03:04 Nasal Cannula 2.0 28 05/28/17 00:00 97.9 97 21 160/87 90 97.9 05/27/17 23:32 94 20 95 Nasal Cannula 2.0 28 05/27/17 23:32 98 20 97 Nasal Cannula 2.0 28 05/27/17 22:55 98.0 92 20 148/75 Room Air 98.0 05/27/17 22:55 Room Air 05/27/17 21:00 86 147/88 05/27/17 20:00 97.8 87 21 166/88 91 97.8 05/27/17 19:30 Nasal Cannula 2.0 28 05/27/17 19:30 Nasal Cannula 2.0 28 05/27/17 19:30 92 Nasal Cannula 2.0 28 05/27/17 19:30 Nasal Cannula 2.0 28 05/27/17 19:00 97.8 87 21 166/88 Room Air 97.8 05/27/17 19:00 Room Air 05/27/17 16:00 97.7 86 20 147/88 94 Room Air 97.7 05/27/17 15:15 87 20 96 Room Air 21 05/27/17 15:09 86 20 96 Nasal Cannula 2.0 28 05/27/17 14:15 135/72 05/27/17 13:05 92 153/91 05/27/17 12:00 97.2 92 20 153/91 95 Nasal Cannula 3.0 05/27/17 12:00 97 Intake and Output 05/27/17 05/28/17 19:00 07:00 Intake Total 360 ml Balance 360 ml Intake Oral 360 ml # Bowel Movements 1 Laboratory Tests 05/28/17 00:00: Stool Occult Blood Negative Height (Feet): 5 Height (Inches): 7.00 Weight (Pounds): 252 General Appearance: no apparent distress Cardiovascular: bradycardia Respiratory/Chest: decreased breath sounds Abdomen: distended Objective no change LIAM MONTELONGO May 28, 2017 11:46
[2017-05-28 12:15] VITALS: BP 138/89
[2017-05-28] MEDS ORDERED: LEVAQUIN250 M1 ORAL (12:31)
[2017-05-28] MEDS ORDERED: ADVAIR 250-501 EACH INH (12:31)
[2017-05-28] MEDS ORDERED: PROAIR HFA8.5 GM INH (12:33)
[2017-05-28] MEDS ORDERED: MEDROL4 MG ORAL (12:35)
[2017-05-28] MEDS ORDERED: NICODERM 21MG/241 EA TD (12:37)
--- NOTE | 2017-05-28 13:56 | Cardiology Report ---
APPROVED REPORT EXAM: Two-dimensional and M-mode echocardiogram with Doppler and color Doppler. INDICATION SOB M-Mode DIMENSIONS IVSd1.7 (0.7-1.1cm)Left Atrium (MM)4.3 (1.6-4.0cm) LVDd6.6 (3.5-5.6cm)Aortic Root3.7 (2.0-3.7cm) PWd1.3 (0.7-1.1cm)Aortic Cusp Exc.2.4 (1.5-2.0cm) IVSs2.5 cm LVDs4.6 (2.5-4.0cm) PWs2.0 cm Normal left ventricular chamber size,. Global left ventricular hypokinesis . Left ventricular ejection fraction estimated to be 50-55 %. Mild left ventricular hypertrophy by 2-D. No evidence of pericardial effusion . Moderate Left atrial enlargement. Right cardiac chamber sizes are within normal limits. Focal aortic valve sclerosis with adequate cusp excursion. Mild Thickened mitral valve leaflets with normal excursion. Mitral annulus and aortic root calcification. Normal pulmonic valve structure . Normal tricuspid valve structure. IVC dilated at size 3.5cm without physiologic collapse . Pacemaker wire present in the right side chambers. A color flow and spectral Doppler study was performed and revealed: No aortic regurgitation. Mild mitral regurgitation. Normal left ventricular diastolic function . Mild tricuspid regurgitation. Tricuspid systolic velocities suggests peak right ventricular systolic pressure of 53mmHg, consistent with moderate pulmonary hypertension. No Pulmonic regurgitation present.
--- NOTE | 2017-05-28 14:55 | Pulmonology Progress Note ---
Assessment/Plan Problems: (1) COPD (chronic obstructive pulmonary disease) (2) Elevated troponin (3) HTN (hypertension) (4) ACS (acute coronary syndrome) (5) CHF (congestive heart failure) Assessment/Plan respiratory treatment taper steroids monitor BP Subjective ROS Limited/Unobtainable: No Constitutional: Reports: no symptoms HEENT: Repors: no symptoms Respiratory: Reports: no symptoms Allergies: Coded Allergies: No Known Allergies (Unverified , 10/24/15) Objective Last 24 Hour Vital Signs Date Time Temp Pulse Resp B/P (MAP) Pulse Ox O2 Delivery O2 Flow Rate FiO2 05/28/17 12:15 98.5 84 23 138/89 97 Room Air 98.5 05/28/17 11:39 Room Air 05/28/17 11:38 Room Air 05/28/17 10:24 155/94 05/28/17 10:24 105 155/94 05/28/17 10:21 155/94 05/28/17 08:09 98.4 105 21 155/94 95 Nasal Cannula 2.0 98.4 05/28/17 07:25 98 Nasal Cannula 2.0 28 05/28/17 07:25 Nasal Cannula 2.0 28 05/28/17 07:25 96 20 98 Nasal Cannula 2.0 28 05/28/17 07:20 93 20 95 Nasal Cannula 2.0 28 05/28/17 07:00 155/94 05/28/17 06:07 163/88 05/28/17 05:06 92 20 Nasal Cannula 2.0 28 05/28/17 04:00 98.0 89 21 163/88 89 98.0 05/28/17 03:05 Nasal Cannula 2.0 28 05/28/17 03:04 Nasal Cannula 2.0 28 05/28/17 00:00 97.9 97 21 160/87 90 97.9 05/27/17 23:32 94 20 95 Nasal Cannula 2.0 28 05/27/17 23:32 98 20 97 Nasal Cannula 2.0 28 05/27/17 22:55 98.0 92 20 148/75 Room Air 98.0 05/27/17 22:55 Room Air 05/27/17 21:00 86 147/88 05/27/17 20:00 97.8 87 21 166/88 91 97.8 05/27/17 19:30 Nasal Cannula 2.0 28 05/27/17 19:30 Nasal Cannula 2.0 28 05/27/17 19:30 92 Nasal Cannula 2.0 28 05/27/17 19:30 Nasal Cannula 2.0 28 05/27/17 19:00 97.8 87 21 166/88 Room Air 97.8 05/27/17 19:00 Room Air 05/27/17 16:00 97.7 86 20 147/88 94 Room Air 97.7 05/27/17 15:15 87 20 96 Room Air 21 05/27/17 15:09 86 20 96 Nasal Cannula 2.0 28 Intake and Output 05/27/17 05/28/17 19:00 07:00 Intake Total 360 ml Balance 360 ml Intake Oral 360 ml # Bowel Movements 1 General Appearance: WD/WN HEENT: normocephalic, atraumatic Respiratory/Chest: chest wall non-tender, lungs clear Cardiovascular: normal peripheral pulses, regular rhythm Abdomen: normal bowel sounds Genitourinary: normal external genitalia 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, abnormal gait, normal mood/ affect Lymphatic: no groin adenopathy Laboratory Tests 05/28/17 00:00: Stool Occult Blood Negative Current Medications Medications (Trade) Dose Ordered Sig/Jose Route PRN Reason Start Time Stop Time Status Last Admin Dose Admin Acetaminophen/ Hydrocodone Bitart (Clifford 10/325) 1 tab Q6H PRN ORAL Pain Scale (6-10) 05/27/17 19:00 05/30/17 18:59 05/27/17 19:44 Albuterol/ Ipratropium (Albuterol/ Ipratropium) 3 ml Q4HRT HHN 05/27/17 19:00 05/29/17 14:59 05/28/17 07:50 Alprazolam (Xanax) 2 mg Q6H PRN ORAL For Anxiety 05/27/17 18:00 05/31/17 17:59 05/27/17 19:45 Aripiprazole (Abilify) 10 mg DAILY ORAL 05/28/17 09:00 06/22/17 10:59 05/28/17 10:21 Aspirin (ASA) 81 mg DAILY ORAL 05/28/17 09:00 06/22/17 10:59 2/21/18 10:22 Atorvastatin Calcium (Lipitor) 80 mg QHS ORAL 05/27/17 21:00 06/22/17 20:59 05/27/17 22:47 Bupropion HCl (Wellbutrin) 100 mg BID ORAL 05/27/17 18:00 06/22/17 17:59 05/28/17 10:23 Calcium Acetate (Phoslo) 1,334 mg TID ORAL 05/27/17 18:00 06/22/17 21:59 05/28/17 10:23 Carisoprodol (Soma) 350 mg TIDPRN PRN ORAL For Pain (muscle spasms) 05/27/17 18:00 06/26/17 17:59 Clonidine HCl (Catapres Tab) 0.1 mg Q4H PRN ORAL For High Blood Pressure 05/27/17 18:00 06/22/17 17:59 Diphenhydramine HCl (Benadryl) 25 mg Q6H PRN ORAL Itching 05/27/17 18:00 06/22/17 17:59 Docusate Sodium (Colace) 100 mg THREE TIMES A DAY ORAL 05/27/17 18:00 06/23/17 12:59 05/28/17 10:22 Donepezil HCl (Aricept) 5 mg QHS ORAL 05/27/17 21:00 06/22/17 20:59 05/27/17 22:47 Heparin Sodium (Porcine) (Heparin 5000 units/ml) 5,000 units EVERY 12 HOURS SUBQ 05/27/17 21:00 06/26/17 20:59 05/28/17 10:26 Hydralazine HCl (Apresoline) 50 mg Q8HR ORAL 05/27/17 22:00 06/24/17 13:14 05/28/17 06:07 Levofloxacin (Levaquin) 500 mg Q48H ORAL 05/29/17 09:00 06/01/17 23:59 Lisinopril (Prinivil) 40 mg DAILY ORAL 05/28/17 09:00 06/23/17 08:59 05/28/17 10:21 Metoprolol Tartrate (Lopressor) 25 mg Q12HR ORAL 05/28/17 21:00 06/27/17 20:59 Nicotine (Nicoderm) 1 patch Q24H TDERMAL 05/28/17 13:00 06/22/17 12:59 Nitroglycerin (Ntg) 0.4 mg Q5M PRN SL Prn Chest Pain 05/27/17 17:15 06/22/17 08:44 Nitroglycerin (Ntg) 1 patch Q24H TDERMAL 05/28/17 10:00 06/23/17 09:59 05/28/17 10:24 Ondansetron HCl (Zofran) 4 mg Q6H PRN IVP Nausea & Vomiting 05/27/17 18:00 06/22/17 17:59 Pantoprazole (Protonix) 40 mg BID ORAL 05/27/17 18:00 06/22/17 10:59 05/28/17 10:21 Prednisone (predniSONE) 30 mg DAILY ORAL 05/29/17 09:00 06/28/17 08:59 Promethazine HCl/ Codeine (Phenergan with Codeine) 5 ml Q4H PRN ORAL For Cough 05/27/17 18:00 06/22/17 17:59 Quetiapine Fumarate (SEROquel) 100 mg DAILY ORAL 05/28/17 09:00 06/23/17 08:59 05/28/17 10:22 Sevelamer Carbonate (Renvela) 2,400 mg THREE TIMES A DAY ORAL 05/27/17 18:00 06/23/17 12:59 05/28/17 10:22 MAICO SYED May 28, 2017 14:55
[2017-05-28 15:44] VITALS: BP 138/89
[2017-05-28] MEDS ORDERED: D5 1/2NS 1000ml IV ONE (16:12)
--- NOTE | 2017-05-28 16:22 | Internal Med Progress Note ---
Subjective Date of Service: May 28, 2017 Physician Name Ellis Pires Attending Physician Chaitanya Weinstein MD Allergies: Coded Allergies: No Known Allergies (Unverified , 10/24/15) ROS Limited/Unobtainable: No Constitutional: Reports: no symptoms HEENT: Reports: no symptoms Cardiovascular: Reports: no symptoms Respiratory: Reports: no symptoms Gastrointestinal/Abdominal: Reports: no symptoms Genitourinary: Reports: no symptoms Neurologic/Psychiatric: Reports: no symptoms Subjective 57 YO M admitted with chest pain. Now elevated troponin. Cover for Int Med Dr Weinstein. Await transfer to [facility] to [facility] today Objective Last Vital Signs Date Time Temp Pulse Resp B/P (MAP) Pulse Ox O2 Delivery O2 Flow Rate FiO2 05/28/17 15:44 138/89 05/28/17 14:45 87 20 100 Nasal Cannula 2.0 28 05/28/17 12:15 98.5 98.5 Laboratory Tests Test 05/28/17 00:00 Stool Occult Blood Negative (NEGATIVE) Intake and Output 05/27/17 05/28/17 19:00 07:00 Intake Total 360 ml Balance 360 ml Intake Oral 360 ml # Bowel Movements 1 Objective General Appearance: WD/WN, no apparent distress, alert EENT: PERRL/EOMI, normal ENT inspection Neck: non-tender, normal alignment, supple, normal inspection Cardiovascular: normal peripheral pulses, normal rate, regular rhythm, no gallop/murmur, no JVD Respiratory/Chest: chest wall non-tender, lungs clear, normal breath sounds, no respiratory distress, no accessory muscle use Abdomen: normal bowel sounds, non tender, soft, no organomegaly, no mass Extremities: normal range of motion, non-tender 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 (2) HTN (hypertension) Assessment & Plan: Cont norvasc, coreg and clonidine. (3) CHF (congestive heart failure) Assessment & Plan: ?volume overload?-see cardiology note. (4) Chest pain Assessment & Plan: S/P NM cardiac stress test 05/26/17. See cardiology note. (5) Elevated troponin Assessment & Plan: S/P NM myocardial perfusion scan 05/26/17. See cardiology note. (6) ESRD (end stage renal disease) on dialysis (7) Purulent bronchitis Assessment & Plan: H/O pneumonia. Cont levaquim per pulmonary Assessment/Plan Discharge planning: Transfer to [facility] to [facility] Transitional living today ELLIS PIRES May 28, 2017 16:22
[2017-05-28] MEDS ORDERED: Metoprolol 25mg tab ORAL SCH (21:00)
--- NOTE | 2017-05-28 21:54 | Diagnostic Imaging Report ---
APPROVED REPORT CPT Code: 94914 Present Symptoms Shortness of breath BILATERAL: Imaging reveals a patent deep venous system bilaterally. There is no evidence of thrombus within the femoral, popliteal or tibial segments. The greater saphenous veins are also within normal limits. Doppler indicates normal spontaneous flow within these segments.
[2017-05-29] MEDS ORDERED: Levofloxacin 500mg tab ORAL SCH (09:00)
--- NOTE | 2017-05-30 13:31 | Discharge Summary ---
Discharge Summary Hospital Course Date of Admission May 23, 2017 at 05:08 Date of Discharge May 28, 2017 at 16:13 Admitting Diagnosis ACUTE CORONARY SYNDROME HPI Jordin Leslie is a 57 year old male who was admitted on May 23, 2017 at 05: 08 for Acute Coronary Syndrome Hospital Course [id number] Discharge Discharge Disposition Patient was discharged to Home (01) Discharge Diagnoses: Katya Snowden NP May 30, 2017 13:31
--- NOTE | 2017-05-31 02:30 | Discharge Summary 2 SIG ---
DATE OF ADMISSION: 05/23/2017 DATE OF DISCHARGE: 05/28/2017 CONSULTANTS: 1. Marin Bernabe M.D. 2. Christine Morgan M.D. 3. Lavelle Saha M.D. BRIEF HOSPITAL COURSE: The patient is a 57-year-old male who presented to the ED with chief complaint of chest pain. The patient was admitted to [facility] for pneumonia and was discharged on 05/15/2017. He stated evening of 05/22/2017, he began to experience chest pain, which was located to be substernal with no radiation to the jaw or to the shoulder. He then presented to [facility]. He has past medical history significant for CHF; end-stage renal disease, on hemodialysis every Friday, , and Friday; hypertension; COPD; and he had right thoracotomy for unknown reason. On evaluation at ED, blood work did not show any leukocytosis. Hemoglobin and hematocrit were stable. BUN was 95 and creatinine was 8.7. Troponin was 0.262 and BNP was 35,901. EKG was in normal sinus rhythm with no acute ischemic changes. Chest x-ray showed cardiomegaly with interstitial disease. He was given aspirin and morphine and was admitted to telemetry for evaluation of acute coronary syndrome and end-stage renal disease. He was given nebulizer treatments and breathing treatments. He was started on IV steroids and was given trial of theophylline. He was a smoker and given nicotine patch. Venous duplex of lower extremity was negative for DVT. He was given inpatient hemodialysis. Potassium was elevated to 6.4 and was give Kayexalate. He was given phosphate binders. Initial phosphorus level was greater than 9. He underwent echocardiogram which showed EF 50% to 55% with global left ventricular hypokinesis and RVSP of 53 consistent with moderate pulmonary hypertension. He was given medical management with metoprolol and lisinopril. He was continued on Lipitor 80 mg at bedtime. On 05/26/2017, he underwent myocardial perfusion test, results were nonischemic. There was an inferolateral infarct near the apex with equivocally small amount of reversible estuardo-infarct ischemia. Calculated post stress ejection fraction of 45%. Troponin elevation likely secondary to troponin leak due to end-stage renal disease. There were no EKG changes and no wall motion abnormalities on echocardiogram. He was eventually discharged. Steroids were tapered. He was saturating well on room air. He was offered placement, but refused transfer to SNF. The patient was then discharged back to transitional living. FINAL DIAGNOSES: 1. Acute heart failure with preserved ejection fraction. 2. Elevated troponin due to troponin leak due to end-stage renal disease. 3. Chest pain, pleuritic in nature. 4. Purulent bronchitis. 5. Hypertension. 6. COPD. 7. Hyperkalemia. 8. Hypertensive urgency. 9. Anemia of chronic kidney disease. 10. Old CVA. 11. Left AICD. DISPOSITION: The patient was discharged to transitional living. DISCHARGE MEDICATIONS: Refer to medication list. DISCHARGE INSTRUCTIONS: Follow up with PMD in a week. Chaitanya Weinstein M.D. I have been assigned to dictate discharge summary on this account and I was not involved in the patient's management. Katya Snowden N.P. DR: AJIT JOB#: [id number] CC: [email or web address]
== END 2017-05-28 16:13 | disposition home or self-care (01) | DRG 140 ==
LOC: EDBD 03:59 → EMR 04:17 → 2E 05:08 → EDBEDREQ 06:09 → 2E 06:51 → 4E 05-27 17:00
PROC: 5A1D70Z Performance of Urinary Filtration, Intermittent, Less than 6 Hours Per Day (ICD-10-PCS; principal; 2017-05-28)
DX: J44.1 Chronic obstructive pulmonary disease with (acute) exacerbation (principal); I50.31 Acute diastolic (congestive) heart failure; N18.6 End stage renal disease; E87.0 Hyperosmolality and hypernatremia; I42.9 Cardiomyopathy, unspecified; E11.22 Type 2 diabetes mellitus with diabetic chronic kidney disease; E87.5 Hyperkalemia; I13.2 Hypertensive heart and chronic kidney disease with heart failure and with stage 5 chronic kidney disease, or end stage renal disease; D63.1 Anemia in chronic kidney disease; I16.0 Hypertensive urgency; F17.200 Nicotine dependence, unspecified, uncomplicated; G40.909 Epilepsy, unspecified, not intractable, without status epilepticus; Z79.01 Long term (current) use of anticoagulants; Z86.73 Personal history of transient ischemic attack (TIA), and cerebral infarction without residual deficits; Z79.82 Long term (current) use of aspirin; Z99.2 Dependence on renal dialysis; Z95.810 Presence of automatic (implantable) cardiac defibrillator
CPT/HCPCS: 36415; 71045; 78452; 80048; 80053; 80061; 80076; 82270; 82550; 82553; 82607; 82728; 82746; 82977; 83036; 83540; 83605; 83735; 83880; 84100; 84439; 84443; 84484; 84550; 85007; 85025; 85610; 86140; 86710; 87040; 87070; 87081; 87181; 87205; 93005; 93017; 93306; 93970; 94640; 94664; 94760; 99285; J2785; J7620

== ENCOUNTER 2017-06-03 12:46 | Inpatient (IN) | payer MEDICAID ==
[~2017-06-03] VITALS: Ht 165.1 cm; Wt 89.9 kg
[~2017-06-03 12:46] MED LIST changes: +ADVAIR 250-501 EACH INH; +ARICEPT23 MG ORAL; +FERROUS SULFAT500 G1 MC; +LEVAQUIN250 M1 ORAL; +LIPITOR80 MG ORAL; +MEDROL4 MG ORAL; +NICODERM 21MG/241 EA TD; +PROAIR HFA8.5 GM INH; +QUETIAPINE FUM300 MG ORAL
[2017-06-03 12:53] VITALS: BP 173/104
--- NOTE | 2017-06-03 13:20 | Emergency Room Report ---
History of Present Illness General Chief Complaint: Chest Pain Source: Patient, EMS Present Illness HPI 57-year-old male, history of end-stage renal disease, last dialysis was 2 days ago, COPD, recent discharge from the hospital for workup for ACS, presenting with chest pain or shortness of breath. Patient states that he went back to his [id number], states that he was not given any oxygen, states that he has had worsening shortness of breath the last 2 days. Also with chest tightness Also complaining of productive cough, bloody sputum, states that he had bloody sputum during admission Allergies: Coded Allergies: No Known Allergies (Unverified , 10/24/15) Patient History Past Medical History: see triage record Past Surgical History: none Pertinent Family History: none Reviewed Nursing Documentation: PMH: Agreed, PSxH: Agreed Nursing Documentation-PMH Hx Cardiac Problems: Yes - CHF Hx Hypertension: Yes Hx Pacemaker: Yes Hx Asthma: Yes Hx COPD: Yes Hx Diabetes: Yes Hx Cancer: No Hx Gastrointestinal Problems: No - kidney failure Hx Dialysis: Yes - Left Upper Arm Shunt Hx Neurological Problems: Yes - TUE, THUR, SAT Hx Cerebrovascular Accident: Yes Hx Seizures: Yes Review of Systems All Other Systems: negative except mentioned in HPI Physical Exam Vital Signs Date Time Temp Pulse Resp B/P (MAP) Pulse Ox O2 Delivery O2 Flow Rate FiO2 06/03/17 12:41 100.3 109 26 204/101 97 Room Air 100.2 Sp02 EP Interpretation: reviewed, normal General Appearance: alert, GCS 15, non-toxic, moderate distress Head: normocephalic, atraumatic Eyes: bilateral eye normal inspection, bilateral eye PERRL, bilateral eye EOMI ENT: normal ENT inspection, normal pharynx, normal voice, moist mucus membranes Neck: normal inspection, full range of motion, supple Respiratory: respiratory distress, wheezing Cardiovascular #1: normal capillary refill, tachycardia Cardiovascular #2: 2+ radial (R), 2+ radial (L) Gastrointestinal: normal inspection, non tender, soft, non-distended, no guarding Musculoskeletal: normal inspection, back normal, normal range of motion, non- tender Neurologic: normal inspection, alert, oriented x3, responsive, motor strength/ tone normal, sensory intact, normal gait, speech normal Psychiatric: normal inspection, judgement/insight normal, memory normal Skin: normal inspection, normal color, no rash, warm/dry, well hydrated, normal turgor Medical Decision Making Diagnostic Impression: Primary Impression: Respiratory distress Additional Impressions: ESRD (end stage renal disease) on dialysis CHF (congestive heart failure) ER Course 57-year-old male with shortness of breath and chest pain DDX: ACS vs. CHF vs. COPD exacerbation versus pneumonia vs. gastritis/GERD vs. pneumothorax Plan: IV access, obtain labs including troponin, EKG, CXR ER course: Patient was placed on BiPAP immediately Disposition: Patient requires admission to [facility] Patient signed out to Dr. Weinstein, who has accepted patient for admission. Signed out to Dr Baker -pls follow up labs -admit to [facility] Please note that this Emergency Department Report was dictated using [email or web address] checker technology software, occasionally this can lead to erroneous entry secondary to interpretation by the dictation equipment. EKG Diagnostic Results EP Interpretation: Yes Rate: Tachycardic Rhythm: NSR ST Segments: No acute changes ASA given to patient: Yes Rhythm Strip EP Interpretation: Yes Rate: 112 Rhythm: NSR, no PVCs, no ectopy Chest X-ray CXR: Ordered: Yes 1 view Indication: Shortness of breath EP interpretation: Yes Interpretation: cardiomegaly, +chf Impression: chf Electronically signed by Claudine Cruz MD Last Vital Signs Date Time Temp Pulse Resp B/P (MAP) Pulse Ox O2 Delivery O2 Flow Rate FiO2 06/03/17 12:53 111 24 Room Air 06/03/17 12:53 100.2 173/104 97 100.2 Disposition: ADMITTED INPATIENT Condition: Critical Claudine Cruz M.D. Jun 03, 2017 13:20
[2017-06-03] MEDS ORDERED: Miralax 17gm pkt ORAL PRN (13:30)
[2017-06-03] MEDS ORDERED: Albuterol/Ipratropium 3ml neb HHN PRN (13:30)
--- NOTE | 2017-06-03 13:56 | Diagnostic Imaging Report ---
Indication: Dyspnea Comparison: 05/24/2017 A single view chest radiograph was obtained. Findings: Extensive bilateral consolidative opacities are demonstrated. There is a question of developing cavitation within a right upper lobe infiltrate. The heart is enlarged. Pacemaker noted on the left. There may be an element of pulmonary edema as well. Please correlate clinically. Bones are osteopenic. IMPRESSION: Possible developing cavitation given some central lucency within an area of airspace disease in the right upper lobe suspicious for pneumonia. Bilateral infiltrates noted. Possible CHF. Please correlate clinically.
[2017-06-03 14:05] VITALS: BP 188/110
[2017-06-03 14:19] LABS: HEMATOCRIT 29.1 % (42.0-52.0); HEMOGLOBIN 9.3 G/DL (14.2-18.0); MEAN CORPUSCULAR VOLUME 90 FL (80-99); PLATELET COUNT 96 K/UL (150-450); RED BLOOD COUNT 3.24 M/UL (4.70-6.10); RED CELL DISTRIBUTION WIDTH 16.3 % (11.6-14.8)
[2017-06-03 14:31] LABS: ALANINE AMINOTRANSFERASE 46 U/L (12-78); ALBUMIN 3.3 G/DL (3.4-5.0); ALBUMIN/GLOBULIN RATIO 0.8 (1.0-2.7); ALKALINE PHOSPHATASE 120 U/L (46-116); ANION GAP 15 mmol/L (5-15); ASPARTATE AMINO TRANSFERASE 33 U/L (15-37); BILIRUBIN,TOTAL 0.7 MG/DL (0.2-1.0); BLOOD UREA NITROGEN 103 mg/dL (7-18); CALCIUM 9.2 MG/DL (8.5-10.1); CARBON DIOXIDE 23 MMOL/L (21-32); CHLORIDE 98 MMOL/L (98-107); CREATININE 10.5 MG/DL (0.55-1.30); SODIUM 137 MMOL/L (136-145)
[2017-06-03 14:32] VITALS: BP 166/87
[2017-06-03 14:34] LABS: POTASSIUM 6.2 MMOL/L (3.5-5.1)
[2017-06-03] MEDS ORDERED: Calcium Gluconate 1gm/10ml vial IVP ONE (15:00)
[2017-06-03] MEDS ORDERED: Piperacillin/Tazobactam 3.375 GM in NS 110 ML IVPB ONE (15:00)
[2017-06-03] MEDS ORDERED: Azithromycin 500 MG in D5W 275 ML IVPB ONE (15:00)
[2017-06-03] MEDS ORDERED: Sodium Polystyrene Sulfonate 15gm Powder ORAL ONE (15:00)
[2017-06-03] MEDS ORDERED: Azithromycin 500mg Inj IV ONE (15:34)
[2017-06-03] MEDS ORDERED: Zosyn 3.375gm inj ONE (15:35)
[2017-06-03 15:48] VITALS: BP 172/80
--- NOTE | 2017-06-03 16:21 | Consultation ---
Consult Note Consult Note 57 y old- missed his dialysis in ER with CP and resp distress Chief Complaint: Chest Pain 57-year-old male, history of end-stage renal disease, last dialysis was 2 days ago, COPD, recent discharge from the hospital for workup for ACS, presenting with chest pain or shortness of breath. Patient states that he went back to his [id number], states that he was not given any oxygen, states that he has had worsening shortness of breath the last 2 days. Also with chest tightness Also complaining of productive cough, bloody sputum, states that he had bloody sputum during admission Hx Cardiac Problems: Yes - CHF Hx Hypertension: Yes Hx Pacemaker: Yes Hx Asthma: Yes Hx COPD: Yes Hx Diabetes: Yes Hx Gastrointestinal Problems: No - kidney failure Hx Dialysis: Yes - Left Upper Arm Shunt Hx Neurological Problems: Yes - LISA OSUNA SAT Hx Cerebrovascular Accident: Yes Hx Seizures: Yes seen in ER examined- data reviewed Assessment/Plan ESRD , missed HD , now high K and pulmonary edema Acute respiratory distress due to volume overload elevated troponin r/o ACS h/o COPD ? exacerbation HTN urgency Cardiomyopathy L AICD anemia of chronic kidney disease Hx of CVA Plan: HD [facility]US with max UF One dose Kayexelate- Phos binders Optimize cardiac status per orders May 24, 2017 10:10 LIAM MONTELONGO Jun 03, 2017 16:20
[2017-06-03] MEDS ORDERED: Morphine Sulfate 4mg/ml Inj IVP ONE (16:30)
[2017-06-03 17:00] VITALS: BP 148/90
--- NOTE | 2017-06-03 17:52 | History & Physical ---
History and Physical History & Physicial Dictated for Int Med-Dr Weinstein no. [id number]. ZOEY PIRES Jun 03, 2017 17:52
[2017-06-03] MEDS: Docusate 100mg cap ORAL SCH (17:56)
--- NOTE | 2017-06-03 18:21 | Cardiology Report ---
APPROVED REPORT EXAM: Two-dimensional and M-mode echocardiogram with Doppler and color Doppler. INDICATION LV FUNCTION M-Mode DIMENSIONS IVSd1.8 (0.7-1.1cm)Left Atrium (MM)4.4 (1.6-4.0cm) LVDd6.1 (3.5-5.6cm)Aortic Root3.4 (2.0-3.7cm) PWd1.7 (0.7-1.1cm)Aortic Cusp Exc.2.4 (1.5-2.0cm) IVSs3.0 cm LVDs5.1 (2.5-4.0cm) PWs1.4 cm Technically difficualt study with poor endocardial definition Mild left ventricular enlargement. Normal wall motion except possible hypokinesis of the septum to the extent visualized Left ventricular ejection fraction estimated to be 45-50%. Moderate left ventricular hypertrophy by 2-D. RV not well seen No evidence of pericardial effusion. Mild bi-atrial enlargements . Focal aortic valve sclerosis with adequate cusp excursion. Thickened mitral valve leaflets with normal excursion. Mitral annulus and aortic root calcification. Pulmonic valve not well visualized. Normal tricuspid valve structure. IVC dilated at 3.5 cm without physiologic collapse suggestive of increased RA pressure A color flow and spectral Doppler study was performed and revealed: Trace aortic regurgitation.AV peak gradient 13, MG 7 mmhg Mild mitral regurgitation. Mitral inflow velocities indicates possible pseudo normalization pattern implying moderately elevated left atrial pressure (Grade II ). Mild tricuspid regurgitation . Tricuspid systolic velocities suggests peak right ventricular systolic pressure of 43mmHg , consistent with mild pulmonary hypertension. Trace Pulmonic regurgitation present.
--- NOTE | 2017-06-03 18:53 | Cardiology Progress Note ---
Assessment/Plan Assessment/Plan [id number] chest pain neg recent sig perfusion abn; systolic dysfunction on mild degree involving the septum cavitating lung lesion esrd htn anemia icd hx tropn min abn related to esrd likely venoud duplex may need ct of chest echo reviewed swma in septum (possible) as tech diffivutl study ef 45% dialysis per dr grimaldo bp meds Objective Last 24 Hour Vital Signs Date Time Temp Pulse Resp B/P (MAP) Pulse Ox O2 Delivery O2 Flow Rate FiO2 06/03/17 17:49 89 24 94 Facial 30 06/03/17 16:35 100.0 06/03/17 16:11 140/86 06/03/17 15:48 100.0 90 29 172/80 Bi-pap 100.0 06/03/17 14:46 96 34 96 Facial 30 06/03/17 14:39 30 06/03/17 14:32 94 30 166/87 97 Bi-pap 06/03/17 14:05 99.9 105 34 188/110 96 Bi-pap 99.9 06/03/17 13:08 109 41 100 Facial 30 06/03/17 13:08 109 41 Bi-pap 30 06/03/17 12:53 111 24 Room Air 06/03/17 12:53 100.2 26 173/104 97 Room Air 100.2 06/03/17 12:41 100.3 109 26 204/101 97 Room Air 100.2 Laboratory Tests Test 06/03/17 13:45 06/03/17 13:50 Arterial Blood pH 7.380 (7.350-7.450) Arterial Blood Partial Pressure CO2 37.3 mmHg (35.0-45.0) Arterial Blood Partial Pressure O2 76.3 mmHg (75.0-100.0) Arterial Blood HCO3 21.9 mmol/L (22.0-26.0) L Arterial Blood Oxygen Saturation 92.7 % (92.0-98.0) Arterial Blood Base Excess -2.8 Juan A Test Positive White Blood Count 12.0 K/UL (4.8-10.8) H Red Blood Count 3.24 M/UL (4.70-6.10) L Hemoglobin 9.3 G/DL (14.2-18.0) L Hematocrit 29.1 % (42.0-52.0) L Mean Corpuscular Volume 90 FL (80-99) Mean Corpuscular Hemoglobin 28.7 PG (27.0-31.0) Mean Corpuscular Hemoglobin Concent 31.9 G/DL (32.0-36.0) L Red Cell Distribution Width 16.3 % (11.6-14.8) H Platelet Count 96 K/UL (150-450) L Mean Platelet Volume 9.3 FL (6.5-10.1) Neutrophils (%) (Auto) % (45.0-75.0) Lymphocytes (%) (Auto) % (20.0-45.0) Monocytes (%) (Auto) % (1.0-10.0) Eosinophils (%) (Auto) % (0.0-3.0) Basophils (%) (Auto) % (0.0-2.0) Differential Total Cells Counted 100 Neutrophils % (Manual) 76 % (45-75) H Lymphocytes % (Manual) 9 % (20-45) L Monocytes % (Manual) 15 % (1-10) H Eosinophils % (Manual) 0 % (0-3) Basophils % (Manual) 0 % (0-2) Band Neutrophils 0 % (0-8) Platelet Estimate Decreased L Platelet Morphology Normal Hypochromasia 2+ Sodium Level 137 MMOL/L (136-145) Potassium Level 6.2 MMOL/L (3.5-5.1) *H Chloride Level 98 MMOL/L (98-107) Carbon Dioxide Level 23 MMOL/L (21-32) Anion Gap 15 mmol/L (5-15) Blood Urea Nitrogen 103 mg/dL (7-18) H Creatinine 10.5 MG/DL (0.55-1.30) H Estimat Glomerular Filtration Rate 6.2 mL/min (>60) Glucose Level 58 MG/DL (74-106) L Calcium Level 9.2 MG/DL (8.5-10.1) Total Bilirubin 0.7 MG/DL (0.2-1.0) Aspartate Amino Transf (AST/SGOT) 33 U/L (15-37) Alanine Aminotransferase (ALT/SGPT) 46 U/L (12-78) Alkaline Phosphatase 120 U/L (46-116) H Troponin I 0.380 ng/mL (0.000-0.056) C-Reactive Protein, Quantitative 4.6 mg/dL (0.00-0.90) H Pro-B-Type Natriuretic Peptide > 65000 pg/mL (0-125) H Total Protein 7.4 G/DL (6.4-8.2) Albumin 3.3 G/DL (3.4-5.0) L Globulin 4.1 g/dL Albumin/Globulin Ratio 0.8 (1.0-2.7) L Microbiology Date/Time Source Procedure Growth Status 06/03/17 14:45 Nasal Nares Influenza Types A,B Antigen (RELL) - Final Complete PRECIOUS GARCIA Jun 03, 2017 18:53
[2017-06-03] MEDS: Carvedilol 25mg Tab ORAL SCH (20:58)
[2017-06-03 21:00] VITALS: BP 146/90
--- NOTE | 2017-06-03 21:41 | Consultation ---
History of Present Illness General Date patient seen: Jun 03, 2017 Chief Complaint: Hemoptysis shortness of breath chest pain purulent cough Referring physician: Dr. Calloway Reason for Consultation: Hemoptysis Present Illness HPI 57 yo female with pmhx congestive heart failure, ESRD on HD friday, and friday, last HD 05/31, HTN, COPD presents with chief complaint of shortness of breath and blood-tinged sputum. The patient also admits to fever and chills, states she coughed up bloody sputum today and she presented to the hospital subsequently. Initial chest radiograph taken in the ER reveals bilateral infiltrates and what appears to be a possible cavitary lesion in the right upper lobe. The patient also admits to shortness of breath and difficulty breathing, she has been initiated on breathing treatments for her chronic obstructive lung disease, aspiration precaution aswell as initiation of broad spectrum empiric antibiotics and sputum is to be sent to laboratory for culture and sensitivity, antitiobics to be adjusted appropriately. Allergies: Coded Allergies: IODINE AND IODIDE CONTAINING PRODUC (Verified Allergy, Mild, itching and pruritis, 06/25/17) Uncoded Allergies: CONTRAST/DYE (Allergy, Intermediate, PRURITIS AND ITCHING, 06/25/17) Medication History Scheduled Alprazolam* (Xanax*), 2 MG ORAL THREE TIMES A DAY, (Reported) Amlodipine Besylate* (Amlodipine Besylate*), 10 MG ORAL DAILY, (Reported) Aripiprazole* (Abilify*), 15 MG ORAL DAILY, (Reported) Aspirin* (Aspir 81*), 81 MG ORAL DAILY, (Reported) Atorvastatin (Lipitor), 80 MG ORAL DAILY, (Reported) Bupropion Hcl* (Bupropion Hcl*), 100 MG PO BID, (Reported) Carisoprodol* (Carisoprodol*), 350 MG ORAL Q6H, (Reported) Carvedilol* (Carvedilol*), 25 MG ORAL EVERY 12 HOURS, (Reported) Donepezil Hcl (Aricept), 5 MG ORAL DAILY, (Reported) Ferrous Sulfate, Dried (Ferrous Sulfate), 325 GM MC EVERY 8 HOURS, (Reported) Fluticasone/Salmeterol (Advair 250-50 Diskus), 1 PUFF INH EVERY 12 HOURS, ( Reported) Folic Acid* (Folic Acid*), 1 MG ORAL DAILY, (Reported) Hydrocodone Bit/Acetaminophen 10-325* (Hydrocodon-Acetaminophn 10-325*), 1 TAB ORAL Q6H, (Reported) Levofloxacin* (Levaquin*), 250 MG ORAL QOD, (Reported) Lisinopril (Lisinopril*), 20 MG ORAL DAILY, (Reported) Methylprednisolone* (Medrol*), 4 MG ORAL DAILY, (Reported) Multivitamins* (Multivitamins*), 1 TAB ORAL DAILY, (Reported) Nicotine (Nicotine Patch), 1 EA TD DAILY, (Reported) Nitroglycerin (Nitroglycerin), 0.4 MG SL NEEDED Omeprazole (Omeprazole), 20 MG ORAL DAILY, (Reported) Polyethylene Glycol 3350* (Miralax*), 17 GM ORAL DAILY, (Reported) Quetiapine Fumarate (Quetiapine Fumarate), 100 MG ORAL DAILY, (Reported) Sevelamer HCl (Renagel), 800 MG ORAL THREE TIMES A DAY, (Reported) Simvastatin (Zocor), 20 MG ORAL BEDTIME, (Reported) Tiotropium [place]* (Spiriva*), 1 PUFF INH DAILY, (Reported) Valsartan (Diovan), 160 MG ORAL DAILY, (Reported) Warfarin Sod* (Warfarin Sod*), 5 MG ORAL DAILY, (Reported) Scheduled PRN Albuterol Sulfate* (Albuterol Sulfate Hhn*), 3 ML INH Q4H PRN for Shortness of Breath, (Reported) Albuterol Sulfate* (Proair Hfa*), 1 PUFF INH Q6H PRN for Shortness of breath, ( Reported) Diphenhydramine Hcl* (Benadryl*), 25 MG ORAL Q6H PRN for Itching, (Reported) Hydrocodone Bit/Acetaminophen 10-325* ([place] 10-325*), 1 TAB ORAL Q6H PRN for For Pain Ondansetron* (Zofran*), 4 MG ORAL Q6H PRN for Nausea & Vomiting, (Reported) Miscellaneous Medications Isosorbide Mononitrate (Isosorbide Mononitrate Er), 30 MG PO, (Reported) Loratadine (Loratadine), 10 MG PO, (Reported) Patient History Healthcare decision maker SELF Resuscitation status Advanced Directive on File Past Medical/Surgical History Past Medical/Surgical History: (1) Rapid atrial fibrillation (2) CHF (congestive heart failure) (3) COPD (chronic obstructive pulmonary disease) (4) Hyperkalemia (5) Shortness of breath (6) Hemoptysis (7) Pleuritic chest pain (8) Respiratory failure (9) Pneumonia (10) HTN (hypertension) (11) Elevated troponin (12) ESRD (end stage renal disease) on dialysis (13) Anemia (14) Purulent bronchitis (15) Constipation (16) Hyperkalemia, diminished renal excretion (17) Diarrhea (18) Respiratory distress (19) Chest pain (20) VRE (vancomycin resistant enterococcus) culture positive (21) Defibrillator discharge (22) LFTs abnormal (23) Deep venous thrombosis of distal end of left lower extremity (24) Intractable abdominal pain (25) VRE re (26) Conjunctivitis (27) Atrial flutter with rapid ventricular response Review of Systems Constitutional: Reports: malaise, weakness Respiratory: Reports: cough, shortness of breath, wheezing, RIOS, sputum, other - hemoptysis Physical Exam General Appearance: moderate distress Lines, tubes and drains: peripheral HEENT: normocephalic, atraumatic, anicteric, PERRL Neck: non-tender, normal alignment, supple, normal inspection Respiratory/Chest: chest wall non-tender, respiratory distress, decreased breath sounds, crackles/rales, rhonchi - bilaterally, expiratory wheezing, inspiratory wheezing Breasts: no masses Cardiovascular/Chest: normal peripheral pulses, normal rate, regular rhythm, no JVD Abdomen: normal bowel sounds, non tender, soft, no organomegaly, no mass Genitourinary/Rectal: normal genital exam, normal rectal exam Extremities: non-tender, normal inspection, no calf tenderness Skin Exam: normal pigmentation, warm/dry Neurologic: home manager 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, no motor/sensory deficits Last 24 Hour Vital Signs Date Time Temp Pulse Resp B/P (MAP) Pulse Ox O2 Delivery O2 Flow Rate FiO2 06/03/17 20:58 86 149/98 06/03/17 20:51 94 Nasal Cannula 2.0 28 06/03/17 20:51 Nasal Cannula 2.0 28 06/03/17 20:50 90 20 Bi-pap 30 2/27/18 19:30 90 20 Bi-pap 30 06/03/17 19:30 90 22 95 Facial 30 06/03/17 17:49 89 24 94 Facial 30 06/03/17 17:00 97.5 95 27 148/90 100 Bi-pap 97.5 06/03/17 16:35 100.0 06/03/17 16:11 140/86 06/03/17 15:48 100.0 90 29 172/80 Bi-pap 100.0 06/03/17 14:46 96 34 96 Facial 30 06/03/17 14:39 30 06/03/17 14:32 94 30 166/87 97 Bi-pap 06/03/17 14:05 99.9 105 34 188/110 96 Bi-pap 99.9 06/03/17 13:08 109 41 100 Facial 30 06/03/17 13:08 109 41 Bi-pap 30 06/03/17 12:53 111 24 Room Air 06/03/17 12:53 100.2 26 173/104 97 Room Air 100.2 06/03/17 12:41 100.3 109 26 204/101 97 Room Air 100.2 Laboratory Tests Test 06/03/17 13:45 06/03/17 13:50 Arterial Blood pH 7.380 (7.350-7.450) Arterial Blood Partial Pressure CO2 37.3 mmHg (35.0-45.0) Arterial Blood Partial Pressure O2 76.3 mmHg (75.0-100.0) Arterial Blood HCO3 21.9 mmol/L (22.0-26.0) L Arterial Blood Oxygen Saturation 92.7 % (92.0-98.0) Arterial Blood Base Excess -2.8 Juan A Test Positive White Blood Count 12.0 K/UL (4.8-10.8) H Red Blood Count 3.24 M/UL (4.70-6.10) L Hemoglobin 9.3 G/DL (14.2-18.0) L Hematocrit 29.1 % (42.0-52.0) L Mean Corpuscular Volume 90 FL (80-99) Mean Corpuscular Hemoglobin 28.7 PG (27.0-31.0) Mean Corpuscular Hemoglobin Concent 31.9 G/DL (32.0-36.0) L Red Cell Distribution Width 16.3 % (11.6-14.8) H Platelet Count 96 K/UL (150-450) L Mean Platelet Volume 9.3 FL (6.5-10.1) Neutrophils (%) (Auto) % (45.0-75.0) Lymphocytes (%) (Auto) % (20.0-45.0) Monocytes (%) (Auto) % (1.0-10.0) Eosinophils (%) (Auto) % (0.0-3.0) Basophils (%) (Auto) % (0.0-2.0) Differential Total Cells Counted 100 Neutrophils % (Manual) 76 % (45-75) H Lymphocytes % (Manual) 9 % (20-45) L Monocytes % (Manual) 15 % (1-10) H Eosinophils % (Manual) 0 % (0-3) Basophils % (Manual) 0 % (0-2) Band Neutrophils 0 % (0-8) Platelet Estimate Decreased L Platelet Morphology Normal Hypochromasia 2+ Sodium Level 137 MMOL/L (136-145) Potassium Level 6.2 MMOL/L (3.5-5.1) *H Chloride Level 98 MMOL/L (98-107) Carbon Dioxide Level 23 MMOL/L (21-32) Anion Gap 15 mmol/L (5-15) Blood Urea Nitrogen 103 mg/dL (7-18) H Creatinine 10.5 MG/DL (0.55-1.30) H Estimat Glomerular Filtration Rate 6.2 mL/min (>60) Glucose Level 58 MG/DL (74-106) L Calcium Level 9.2 MG/DL (8.5-10.1) Total Bilirubin 0.7 MG/DL (0.2-1.0) Aspartate Amino Transf (AST/SGOT) 33 U/L (15-37) Alanine Aminotransferase (ALT/SGPT) 46 U/L (12-78) Alkaline Phosphatase 120 U/L (46-116) H Troponin I 0.380 ng/mL (0.000-0.056) C-Reactive Protein, Quantitative 4.6 mg/dL (0.00-0.90) H Pro-B-Type Natriuretic Peptide > 08034 pg/mL (0-125) H Total Protein 7.4 G/DL (6.4-8.2) Albumin 3.3 G/DL (3.4-5.0) L Globulin 4.1 g/dL Albumin/Globulin Ratio 0.8 (1.0-2.7) L Microbiology Date/Time Source Procedure Growth Status 06/03/17 14:45 Nasal Nares Influenza Types A,B Antigen (RELL) - Final Complete Height (Feet): 5 Height (Inches): 7.00 Weight (Pounds): 230 Medications Current Medications Medications (Trade) Dose Ordered Sig/Jose Route PRN Reason Start Time Stop Time Status Last Admin Dose Admin Acetaminophen (Tylenol) 650 mg Q4H PRN ORAL T>100.5 06/03/17 13:30 07/03/17 13:29 Albuterol/ Ipratropium (Albuterol/ Ipratropium) 3 ml Q4H PRN HHN Shortness of Breath 06/03/17 13:30 06/08/17 13:29 Amlodipine Besylate (Norvasc) 10 mg DAILY ORAL 06/04/17 09:00 07/04/17 08:59 Aripiprazole (Abilify) 15 mg DAILY ORAL 06/04/17 09:00 07/04/17 08:59 Bupropion HCl (Wellbutrin) 100 mg BID ORAL 06/03/17 18:00 07/03/17 17:59 06/03/17 17:56 Carisoprodol (Soma) 350 mg Q6H PRN ORAL MUSCLE SPASMS 06/03/17 13:30 07/03/17 13:29 Carvedilol (Coreg) 25 mg EVERY 12 HOURS ORAL 06/03/17 21:00 07/03/17 20:59 Clonidine HCl (Catapres Tab) 0.1 mg Q4H PRN ORAL bp over 160 syst 06/03/17 16:30 07/03/17 16:29 Dextrose (Dextrose 50%) STAT PRN IV Hypoglycemia 06/03/17 13:30 07/03/17 13:29 Docusate Sodium (Colace) 100 mg THREE TIMES A DAY ORAL 06/03/17 18:00 07/03/17 17:59 06/03/17 17:56 Heparin Sodium (Porcine) (Heparin 5000 units/ml) 5,000 units EVERY 12 HOURS SUBQ 06/04/17 09:00 07/04/17 08:59 Lisinopril (Prinivil) 20 mg BID ORAL 06/04/17 09:00 07/04/17 08:59 Ondansetron HCl (Zofran) 4 mg Q6H PRN IVP Nausea & Vomiting 06/03/17 13:30 07/03/17 13:29 Pantoprazole (Protonix) 40 mg DAILY ORAL 06/03/17 17:00 07/03/17 16:59 06/03/17 17:00 Polyethylene Glycol (Miralax) 17 gm DAILYPRN PRN ORAL Constipation 06/03/17 13:30 07/03/17 13:29 Sevelamer Carbonate (Renvela) 800 mg THREE TIMES A DAY ORAL 06/03/17 18:00 07/03/17 17:59 06/03/17 17:56 Temazepam (Restoril) 15 mg HSPRN PRN ORAL Insomnia 06/03/17 21:00 06/10/17 20:59 Assessment/Plan Status: stable, progressing Assessment/Plan (1) Respiratory failure (2) Pneumonia (3) Hemoptysis (4) Anemia (5) ESRD (end stage renal disease) on dialysis (6) HTN (hypertension) Plan Empiric broad spectrum antibiotics with psuedonomonal and MRSA coverage CXR examined Breathing treatments as needed for shortness of breath Sputum to be sent out for evaluation of culture and sensitivity HD by baster hand Supplemental oxygen high flow monitor saturation closely Aspiration precautions MAICO SYED Jun 03, 2017 21:37
--- NOTE | 2017-06-03 22:15 | History and Physical Report ---
DATE OF ADMISSION: 06/03/2017 CHIEF COMPLAINT: The patient is a 57-year-old male who presents with chief complaint of shortness of breath and blood-tinged sputum. HISTORY OF PRESENT ILLNESS: The patient was admitted to [facility] with chest pain from 05/23/2017 to 05/28/2017. The patient was discharged home with home health. The patient states history of present illness began yesterday 06/02/2017. The patient began to experience cough. The patient also had some subjective fevers and chills. The patient states he coughed up blood-tinged sputum. The patient presented to [place] emergency room. An x-ray revealed right upper lobe pneumonia. The patient admitted for shortness of breath and pneumonia. PAST MEDICAL HISTORY: Significant for: 1. Congestive heart failure.. 2. End-stage renal disease, on hemodialysis every Friday, , and Friday. The patient's last hemodialysis was Friday05/31/2017. 3. Hypertension. 4. Chronic obstructive pulmonary disease. PAST SURGICAL HISTORY: Significant for right thoracotomy for unknown reason. CURRENT MEDICATIONS: 1. Xanax 2 mg p.o. three times daily p.r.n. 2. Amlodipine 10 mg p.o. daily. 3. Abilify 15 mg p.o. daily. 4. Aspirin 81 mg p.o. daily. 5. Lipitor 80 mg p.o. daily. 6. Wellbutrin 100 mg p.o. twice daily. 7. Soma 350 mg one tablet p.o. q.6 hours p.r.n. 8. Carvedilol 25 mg p.o. twice daily. 9. Aricept 5 mg p.o. daily. 10. Iron sulfate 325 mg p.o. q. 8 hours p.r.n. . 11. Advair 250/50 one puff p.o. twice daily. 12. Folic acid 1 mg p.o. daily. 13. [place] 10/325 one tablet p.o. q.6 h. p.r.n. 14. Isosorbide mononitrate 30 mg p.o. daily. 15. Lisinopril 20 mg p.o. daily. 16. Omeprazole 20 mg p.o. daily. 17. Seroquel 100 mg p.o. daily. 18. Renagel 800 mg p.o. three times daily. 19. Zocor 20 mg p.o. at bedtime. 20. Diovan 160 mg p.o. daily. 21. Coumadin 5 mg p.o. daily. ALLERGIES: No known drug allergies. SOCIAL HISTORY: The patient is single. The patient admits to tobacco use of one quarter pack daily. The patient admits to occasional alcohol use. REVIEW OF SYSTEMS: CONSTITUTIONAL: The patient denies weight loss or weight gain. The patient complains of subjective fevers and chills. HEENT: The patient denies ear or throat pain. The patient denies headache. CARDIOVASCULAR: The patient complains of pleuritic type chest pain. The patient denies palpitations. ABDOMEN: The patient denies nausea, vomiting, diarrhea, or constipation. CHEST: The patient complains of hemoptysis as above. The patient complains of cough as above. The patient complains of shortness of breath as above. NEUROMUSCULAR: The patient denies seizures or generalized weakness. GENITOURINARY: The patient denies dysuria or increased frequency of urination. PHYSICAL EXAMINATION: VITAL SIGNS: Temperature 100.0, respirations 29, pulse 90, blood pressure 172/80, pulse ox 97% on room air. GENERAL: The patient is a well-developed and well-nourished, male, in moderate respiratory distress. HEENT: Eyes, pupils are equal and responsive to light and accommodation. Extraocular movements are intact. NECK: Supple without lymphadenopathy. CHEST: Decreased breath sounds on the right with expiratory wheezes. Otherwise, clear to auscultation without wheezes or rales. CARDIOVASCULAR: Regular rhythm and rate. S1 and S2 normal without murmurs, rubs, or gallops. ABDOMEN: Soft, nontender, and nondistended. Positive bowel sounds. No evidence of hepatosplenomegaly. Currently, no rebound or guarding noted. EXTREMITIES: Negative for clubbing, cyanosis, or edema. RECTAL/GENITAL: Refused. NEUROLOGIC: Cranial nerves II to XII are grossly intact without focal deficits. Motor strength is 5/5 bilaterally. Deep tendon reflexes are 2+ plantar. LABORATORY AND DIAGNOSTIC DATA: A chest x-ray revealed right upper lobe revealed cavitation with central lucency of the right upper lobe of the lung consistent with pneumonia. LABORATORY STUDIES: WBC 12.0, hemoglobin 9.3, hematocrit 29.1, platelets 96,000. Sodium 137, potassium 6.2, chloride 98, CO2 23, BUN 103, creatinine 7.5, glucose 58. Troponin elevated [place] 0.38[place] [id number]. ASSESSMENT: This is a 57-year-old male. 1. Right upper lobe pneumonia. 2. Chest pain, pleuritic. 3. Shortness of breath. 4. Hemoptysis. 5. End-stage renal disease. 6. Chronic obstructive pulmonary disease. 7. Congestive heart failure. 8. Hypertension. 9. Elevated troponin. TREATMENT: 1. Right upper lobe pneumonia/chest pain. A Pulmonary consultation has been obtained with Dr. Christine Morgan. An Infectious Disease consultation has been obtained with Dr. Antunez. The patient has been started empirically on Zosyn. We will follow recommendations of Pulmonary and Infectious Diseases. 2. Shortness of breath secondary to right upper lobe pneumonia as above. 3. Hemoptysis. 4. End-stage renal disease. A Nephrology consultation has been obtained with Dr. Saha. We will follow recommendations of Dr. Saha. The patient is scheduled for dialysis tomorrow 06/04/2017. 5. Hyperkalemia this is secondary to chronic renal failure as above. 6. Hypertension. Continue antihypertensive medications above. 7. Congestive heart failure/elevated troponin. A Cardiology consultation is pending with Dr. Ely. We will follow recommendations of Cardiology. Ellis Calloway M.D. DR: Swathi JOB#: [id number] CC:
[2017-06-04] VITALS: BP 128/79
--- NOTE | 2017-06-04 02:15 | Consultation ---
DATE OF CONSULTATION: 06/03/2017 CARDIOLOGY CONSULTATION CONSULTING PHYSICIAN: Gerry Ely M.D. REFERRING PHYSICIAN: Christine Morgan M.D. REASON FOR REFERRAL: Chest pain. HISTORY OF PRESENT ILLNESS: This is a 57-year-old gentleman with history of multiple medical problems, who presented to the hospital with two days of constant pain in the center of the chest. The pain does get worse with motion such as twisting and turning, taking a deep breath or coughing. He has shortness of breath chronically for a number of years, has gotten worse recently. Occasional palpitations, occasional dizziness, no lightheadedness. PAST MEDICAL HISTORY: Positive for history of heart failure with preserved ejection fraction, abnormal cardiac enzymes secondary to end-stage renal disease, pleuritic chest pain, purulent bronchitis, hypertension, COPD, hyperkalemia hypertensive urgency, anemia of chronic disease, history of CVA, and history of automatic intracardiac defibrillator placement. He does have a history of seizures as documented; end-stage renal disease on, hemodialysis; cerebrovascular accident. He has got shunts and ICD implantation. ALLERGIES: He denies any allergies to medications. SOCIAL HISTORY: He smokes. He drinks alcoholic beverages. Denies any drug use. REVIEW OF SYSTEMS: GASTROINTESTINAL: Positive nausea, vomiting, black stools, and diarrhea. GENITOURINARY: Does have discomfort on urination. PULMONARY: Positive coughing and wheezing. CONSTITUTIONAL: He has had fevers and chills as well. NEUROLOGIC: Negative. PHYSICAL EXAMINATION: GENERAL: A morbidly obese gentleman, on a BiPAP machine. NECK: Supple. LUNGS: Decreased breath sounds. Inspiratory and expiratory wheezes are noted. CARDIAC: Regular rhythm. No heaves or thrills noted. ABDOMEN: Soft and nontender. Positive bowel sounds. Obese. EXTREMITIES: There is edema of the lower extremities bilaterally. NEUROLOGICAL: He is awake, alert, responsive, in no apparent distress. LABORATORY AND DIAGNOSTIC DATA: White count of 12, hemoglobin 9.3, and platelet count of 96,000. His platelet counts have been decreased on prior occasions as well. A pH of 7.38, pCO2 of 37, pO2 76 . Sodium was 137, potassium 6.2, chloride 98, bicarbonate 23, BUN of 103, creatinine of 10.5. His glucose is 58, and his calcium is 9.2. Alkaline phosphatase of 120. His troponin over the past few weeks that he has been hospitalized here has been anywhere between 0.094 to 0.38, 0.38 was his level today. His CRP was 4.6. ProBNP was greater than 35,000. Chest x-ray done today shows possible developing cavitation, lucency within an area of airspace disease in the right upper lobe suspicious for pneumonia, bilateral infiltrates noted, and possible congestive heart failure. He did have a perfusion imaging on his last hospitalization here that showed inferolateral infarct to the apex with equivocally small amount of reversible estuardo-infarct ischemia, ejection fraction was estimated at 45%. He had an echocardiogram today that showed hypokinesis of the septum to the extent visualized, ejection fraction of 45% to 50%, moderate left ventricular hypertrophy, moderate diastolic relaxation abnormality being documented. ASSESSMENT AND PLAN: 1. Pleuritic chest pain. 2. Left ventricular systolic dysfunction with septal hypokinesis with negative recent reversible perfusion defect. 3. Cavitating lung lesion, possibly pneumonia. 4. Asthma. 5. End-stage renal disease, on hemodialysis. 6. Hypertension. 7. Anemia of chronic disease. 8. History of intracardiac defibrillator placement. 9. Prior history of cerebrovascular accident. Dr. Morgan, this patient was seen in cardiac consultation. The patient has had some elevated blood pressure readings during this hospitalization, which he has had some on prior occasions as well. His medications from home have been listed including amlodipine 10 mg, aspirin, Lipitor, Coreg 25 mg twice daily, Imdur 30 mg daily, and lisinopril 20 mg daily. Those should be continued. Medications may need to be adjusted upward depending on his renal function. He may require removal of some fluids with dialysis to help with his breathing, however, he certainly needs to address the possibility of the cavitating lung lesion. Gerry Ely M.D. DR: Paul JOB#: [id number] CC:
[2017-06-04] MEDS ORDERED: Lisinopril 20mg tab ORAL SCH (09:00)
[2017-06-04] MEDS: Heparin 5000 units/ml inj SUBQ SCH ×2 (09:00→20:50)
[2017-06-04 09:10] LABS: HEMATOCRIT 22.7 % (42.0-52.0); HEMOGLOBIN 7.2 G/DL (14.2-18.0); MEAN CORPUSCULAR VOLUME 89 FL (80-99); PLATELET COUNT 72 K/UL (150-450); RED BLOOD COUNT 2.55 M/UL (4.70-6.10); WHITE BLOOD COUNT 10.6 K/UL (4.8-10.8)
[2017-06-04 09:32] LABS: ALANINE AMINOTRANSFERASE 38 U/L (12-78); ALBUMIN 2.5 G/DL (3.4-5.0); ALBUMIN/GLOBULIN RATIO 0.9 (1.0-2.7); ALKALINE PHOSPHATASE 109 U/L (46-116); ANION GAP 11 mmol/L (5-15); ASPARTATE AMINO TRANSFERASE 27 U/L (15-37); BILIRUBIN,TOTAL 0.7 MG/DL (0.2-1.0); BLOOD UREA NITROGEN 77 mg/dL (7-18); CALCIUM 8.3 MG/DL (8.5-10.1); CARBON DIOXIDE 29 MMOL/L (21-32); CHLORIDE 98 MMOL/L (98-107); CHOLESTEROL 116 MG/DL (< 200); CREATINE KINASE 67 U/L (26-308); CREATININE 8.6 MG/DL (0.55-1.30); GAMMA GLUTAMYL TRANSPEPTIDASE 161 U/L (5-85); HDL CHOLESTEROL 57 MG/DL (40-60); PHOSPHORUS 6.8 MG/DL (2.5-4.9); POTASSIUM 4.4 MMOL/L (3.5-5.1); SODIUM 138 MMOL/L (136-145); TRIGLYCERIDES 95 MG/DL (30-150)
[2017-06-04] MEDS: Morphine Sulfate 2mg/ml Inj IVP PRN ×2 (09:34→15:32)
[2017-06-04] MEDS: Carvedilol 25mg Tab ORAL SCH ×3 (09:39→20:48)
[2017-06-04] MEDS: Lisinopril 20mg tab ORAL SCH ×2 (09:40→18:18)
[2017-06-04] MEDS: Docusate 100mg cap ORAL SCH ×3 (09:41→18:00)
--- NOTE | 2017-06-04 09:46 | Diagnostic Imaging Report ---
Indication: Dyspnea Technique: One view of the chest Comparison: 06/03/2017 Findings: Again demonstrated is focal infiltrate in the right midlung periphery with central lucency. There has been partial clearing of interstitial disease on the left. Interstitial and airspace opacities of the right lung base persists, may be slightly increased. Left chest AICD is again demonstrated. The heart remains enlarged. There may be a small left pleural effusion. The right pleural space is grossly clear Impression: Right midlung infiltrate, with possible developing central cavitation, unchanged over one day. Decreasing left lung mostly interstitial parenchymal disease. Stable or slightly increased right basilar interstitial airspace opacities Possible trace right pleural effusion
[2017-06-04] MEDS: Aspirin Baby 81mg ORAL SCH (10:01)
--- NOTE | 2017-06-04 10:47 | Nephrology Progress Note ---
Assessment/Plan Assessment ESRD , missed HD , admitted with high K and pulmonary edema Acute respiratory distress due to volume overload elevated troponin r/o ACS h/o COPD ? exacerbation HTN urgency Cardiomyopathy L AICD anemia of chronic kidney disease Hx of CVA Plan Plan: HD again today Phos binders BP meds adjustment Optimize cardiac status per orders Subjective ROS Limited/Unobtainable: No Constitutional: Reports: malaise, other - still somewhat short of breath Objective Objective Last 24 Hour Vital Signs Date Time Temp Pulse Resp B/P (MAP) Pulse Ox O2 Delivery O2 Flow Rate FiO2 06/04/17 09:40 146/78 06/04/17 09:40 99 146/78 06/04/17 09:39 99 146/78 06/04/17 09:26 86 26 94 Facial 40 06/04/17 08:00 30 06/04/17 07:34 101 06/04/17 07:18 Nasal Cannula 3.0 32 06/04/17 07:15 92 Nasal Cannula 3.0 32 06/04/17 05:14 88 28 93 Facial 40 06/04/17 04:00 30 06/04/17 03:54 92 06/04/17 03:30 85 30 94 Facial 40 06/04/17 01:01 80 18 95 Facial 40 06/04/17 00:00 98.5 90 24 128/79 Nasal Cannula 2.0 98.5 06/04/17 00:00 Nasal Cannula 2.0 06/03/17 23:56 89 06/03/17 23:30 81 20 94 Facial 40 06/03/17 21:00 Nasal Cannula 2.0 06/03/17 21:00 98.2 91 28 146/90 Nasal Cannula 2.0 98.2 06/03/17 20:58 86 149/98 06/03/17 20:51 94 Nasal Cannula 2.0 28 06/03/17 20:51 Nasal Cannula 2.0 28 06/03/17 20:50 90 20 Bi-pap 30 06/03/17 20:00 30 06/03/17 19:48 93 06/03/17 19:30 90 20 Bi-pap 30 06/03/17 19:30 90 22 95 Facial 30 06/03/17 17:49 89 24 94 Facial 30 06/03/17 17:00 97.5 95 27 148/90 100 Bi-pap 97.5 06/03/17 16:35 100.0 06/03/17 16:11 140/86 06/03/17 15:48 100.0 90 29 172/80 Bi-pap 100.0 06/03/17 14:46 96 34 96 Facial 30 06/03/17 14:39 30 06/03/17 14:32 94 30 166/87 97 Bi-pap 06/03/17 14:05 99.9 105 34 188/110 96 Bi-pap 99.9 06/03/17 13:08 109 41 100 Facial 30 06/03/17 13:08 109 41 Bi-pap 30 06/03/17 12:53 111 24 Room Air 06/03/17 12:53 100.2 26 173/104 97 Room Air 100.2 06/03/17 12:41 100.3 109 26 204/101 97 Room Air 100.2 Intake and Output 06/03/17 06/04/17 19:00 07:00 Intake Total 110.0 ml Output Total 6000 ml Balance 110.0 ml -6000 ml Intake Oral 0 ml IV Total 110.0 ml Output Hemodialysis UF 6000 ml # Bowel Movements 1 1 Laboratory Tests 06/03/17 13:45: Arterial Blood pH 7.380, Arterial Blood Partial Pressure CO2 37.3, Arterial Blood Partial Pressure O2 76.3, Arterial Blood HCO3 21.9L, Arterial Blood Oxygen Saturation 92.7, Arterial Blood Base Excess -2.8, Juan A Test Positive 06/03/17 13:50: White Blood Count 12.0H, Red Blood Count 3.24L, Hemoglobin 9.3L, Hematocrit 29.1L, Mean Corpuscular Volume 90, Mean Corpuscular Hemoglobin 28.7, Mean Corpuscular Hemoglobin Concent 31.9L, Red Cell Distribution Width 16.3H, Platelet Count 96L, Mean Platelet Volume 9.3, Neutrophils (%) (Auto) , Lymphocytes (%) (Auto) , Monocytes (%) (Auto) , Eosinophils (%) (Auto) , Basophils (%) (Auto) , Differential Total Cells Counted 100, Neutrophils % ( Manual) 76H, Lymphocytes % (Manual) 9L, Monocytes % (Manual) 15H, Eosinophils % (Manual) 0, Basophils % (Manual) 0, Band Neutrophils 0, Platelet Estimate DecreasedL, Platelet Morphology Normal, Hypochromasia 2+, Sodium Level 137, Potassium Level 6.2*H, Chloride Level 98, Carbon Dioxide Level 23, Anion Gap 15 , Blood Urea Nitrogen 103H, Creatinine 10.5H, Estimat Glomerular Filtration Rate 6.2, Glucose Level 58L, Calcium Level 9.2, Total Bilirubin 0.7, Aspartate Amino Transf (AST/SGOT) 33, Alanine Aminotransferase (ALT/SGPT) 46, Alkaline Phosphatase 120H, Troponin I 0.380H, C-Reactive Protein, Quantitative 4.6H, Pro- B-Type Natriuretic Peptide > 77485L, Total Protein 7.4, Albumin 3.3L, Globulin 4.1, Albumin/Globulin Ratio 0.8L 06/04/17 08:45: White Blood Count 10.6, Red Blood Count 2.55L, Hemoglobin 7.2L, Hematocrit 22.7L , Mean Corpuscular Volume 89, Mean Corpuscular Hemoglobin 28.2, Mean Corpuscular Hemoglobin Concent 31.7L, Red Cell Distribution Width 16.0H, Platelet Count 72L, Mean Platelet Volume 9.4, Neutrophils (%) (Auto) , Lymphocytes (%) (Auto) , Monocytes (%) (Auto) , Eosinophils (%) (Auto) , Basophils (%) (Auto) , Neutrophils % (Manual) [Pending], Lymphocytes % (Manual) [Pending], Platelet Estimate [Pending], Platelet Morphology [Pending], Sodium Level 138, Potassium Level 4.4, Chloride Level 98, Carbon Dioxide Level 29, Anion Gap 11, Blood Urea Nitrogen 77H, Creatinine 8.6H, Estimat Glomerular Filtration Rate 7.8, Glucose Level 119H, Calcium Level 8.3L, Total Bilirubin 0.7 , Aspartate Amino Transf (AST/SGOT) 27, Alanine Aminotransferase (ALT/SGPT) 38, Alkaline Phosphatase 109, Troponin I 0.482H, Pro-B-Type Natriuretic Peptide [ Pending], Total Protein 5.3L, Albumin 2.5L, Globulin 2.8, Albumin/Globulin Ratio 0.9L, Hemoglobin A1c 6.7H, Uric Acid 4.8, Phosphorus Level 6.8H, Magnesium Level 1.9, Gamma Glutamyl Transpeptidase 161H, Total Creatine Kinase 67, Triglycerides Level 95, Cholesterol Level 116, LDL Cholesterol 44, HDL Cholesterol 57, Cholesterol/HDL Ratio 2.0L, Thyroid Stimulating Hormone (TSH) 0.499 Height (Feet): 5 Height (Inches): 7.00 Weight (Pounds): 230 General Appearance: mild distress Cardiovascular: tachycardia Respiratory/Chest: decreased breath sounds Abdomen: distended LIAM MONTELONGO Jun 04, 2017 10:47
--- NOTE | 2017-06-04 11:27 | Pulmonology Progress Note ---
Assessment/Plan Assessment/Plan ASSESSMENT' Acute hypoxemic RF requiring BiPAP Pleuritic chest pain. Elevated troponin Systolic CHF ( recent negative reversible perfusion defect.) a cardiomyopathy ?Cavitating lung lesion RUL possible pneumonia. Asthma. End-stage renal disease, on hemodialysis. Hypertensive urgency . Anemia of chronic disease. History of intracardiac defibrillator placement. Prior history of cerebrovascular accident. ESRD on HD PLAN OF CARE [facility] BiPAP ABG titrate settings and wean as tolerated Pulmonary toilet CT chest to assess for ? cavitary lesion cardio follows abx for possible PNA fup with cx BP management medical management for SHF nephro follows HD as per nephro today, transfuse 1 u PRBC with HD today case discussed and evaluated by supervising physician Subjective Allergies: Coded Allergies: No Known Allergies (Unverified , 10/24/15) Subjective SOB placed on BIPAP c/o chest pain HD ordered fro today HH down Hgb-7.2 Objective Last 24 Hour Vital Signs Date Time Temp Pulse Resp B/P (MAP) Pulse Ox O2 Delivery O2 Flow Rate FiO2 06/04/17 11:00 84 18 96 Facial 40 06/04/17 09:40 146/78 06/04/17 09:40 99 146/78 06/04/17 09:39 99 146/78 06/04/17 09:26 86 26 94 Facial 40 06/04/17 08:00 30 06/04/17 07:34 101 06/04/17 07:18 Nasal Cannula 3.0 32 06/04/17 07:15 92 Nasal Cannula 3.0 32 06/04/17 05:14 88 28 93 Facial 40 06/04/17 04:00 30 06/04/17 03:54 92 06/04/17 03:30 85 30 94 Facial 40 06/04/17 01:01 80 18 95 Facial 40 06/04/17 00:00 98.5 90 24 128/79 Nasal Cannula 2.0 98.5 06/04/17 00:00 Nasal Cannula 2.0 06/03/17 23:56 89 06/03/17 23:30 81 20 94 Facial 40 06/03/17 21:00 Nasal Cannula 2.0 06/03/17 21:00 98.2 91 28 146/90 Nasal Cannula 2.0 98.2 06/03/17 20:58 86 149/98 06/03/17 20:51 94 Nasal Cannula 2.0 28 06/03/17 20:51 Nasal Cannula 2.0 28 06/03/17 20:50 90 20 Bi-pap 30 06/03/17 20:00 30 06/03/17 19:48 93 06/03/17 19:30 90 20 Bi-pap 30 06/03/17 19:30 90 22 95 Facial 30 06/03/17 17:49 89 24 94 Facial 30 06/03/17 17:00 97.5 95 27 148/90 100 Bi-pap 97.5 06/03/17 16:35 100.0 06/03/17 16:11 140/86 06/03/17 15:48 100.0 90 29 172/80 Bi-pap 100.0 06/03/17 14:46 96 34 96 Facial 30 06/03/17 14:39 30 06/03/17 14:32 94 30 166/87 97 Bi-pap 06/03/17 14:05 99.9 105 34 188/110 96 Bi-pap 99.9 06/03/17 13:08 109 41 100 Facial 30 06/03/17 13:08 109 41 Bi-pap 30 06/03/17 12:53 111 24 Room Air 06/03/17 12:53 100.2 26 173/104 97 Room Air 100.2 06/03/17 12:41 100.3 109 26 204/101 97 Room Air 100.2 Intake and Output 06/03/17 06/04/17 19:00 07:00 Intake Total 110.0 ml Output Total 6000 ml Balance 110.0 ml -6000 ml Intake Oral 0 ml IV Total 110.0 ml Output Hemodialysis UF 6000 ml # Bowel Movements 1 1 General Appearance: other - aweake, alert, AA male in mild resp distress HEENT: normocephalic, atraumatic, anicteric, mucous membranes moist, other - on BiPAP Respiratory/Chest: decreased breath sounds, crackles/rales - at bases Cardiovascular: normal peripheral pulses, normal rate, regular rhythm - SR on tele Abdomen: normal bowel sounds, soft, non tender - obese Extremities: no edema Neurologic/Psychiatric: alert, oriented x 3, responsive Microbiology Date/Time Source Procedure Growth Status 06/03/17 14:45 Nasal Nares Influenza Types A,B Antigen (RELL) - Final Complete Laboratory Tests 06/03/17 13:45: Arterial Blood pH 7.380, Arterial Blood Partial Pressure CO2 37.3, Arterial Blood Partial Pressure O2 76.3, Arterial Blood HCO3 21.9L, Arterial Blood Oxygen Saturation 92.7, Arterial Blood Base Excess -2.8, Juan A Test Positive 06/03/17 13:50: White Blood Count 12.0H, Red Blood Count 3.24L, Hemoglobin 9.3L, Hematocrit 29.1L, Mean Corpuscular Volume 90, Mean Corpuscular Hemoglobin 28.7, Mean Corpuscular Hemoglobin Concent 31.9L, Red Cell Distribution Width 16.3H, Platelet Count 96L, Mean Platelet Volume 9.3, Neutrophils (%) (Auto) , Lymphocytes (%) (Auto) , Monocytes (%) (Auto) , Eosinophils (%) (Auto) , Basophils (%) (Auto) , Differential Total Cells Counted 100, Neutrophils % ( Manual) 76H, Lymphocytes % (Manual) 9L, Monocytes % (Manual) 15H, Eosinophils % (Manual) 0, Basophils % (Manual) 0, Band Neutrophils 0, Platelet Estimate DecreasedL, Platelet Morphology Normal, Hypochromasia 2+, Sodium Level 137, Potassium Level 6.2*H, Chloride Level 98, Carbon Dioxide Level 23, Anion Gap 15 , Blood Urea Nitrogen 103H, Creatinine 10.5H, Estimat Glomerular Filtration Rate 6.2, Glucose Level 58L, Calcium Level 9.2, Total Bilirubin 0.7, Aspartate Amino Transf (AST/SGOT) 33, Alanine Aminotransferase (ALT/SGPT) 46, Alkaline Phosphatase 120H, Troponin I 0.380H, C-Reactive Protein, Quantitative 4.6H, Pro- B-Type Natriuretic Peptide > 16930Y, Total Protein 7.4, Albumin 3.3L, Globulin 4.1, Albumin/Globulin Ratio 0.8L 06/04/17 08:45: White Blood Count 10.6, Red Blood Count 2.55L, Hemoglobin 7.2L, Hematocrit 22.7L , Mean Corpuscular Volume 89, Mean Corpuscular Hemoglobin 28.2, Mean Corpuscular Hemoglobin Concent 31.7L, Red Cell Distribution Width 16.0H, Platelet Count 72L, Mean Platelet Volume 9.4, Neutrophils (%) (Auto) , Lymphocytes (%) (Auto) , Monocytes (%) (Auto) , Eosinophils (%) (Auto) , Basophils (%) (Auto) , Neutrophils % (Manual) [Pending], Lymphocytes % (Manual) [Pending], Platelet Estimate [Pending], Platelet Morphology [Pending], Sodium Level 138, Potassium Level 4.4, Chloride Level 98, Carbon Dioxide Level 29, Anion Gap 11, Blood Urea Nitrogen 77H, Creatinine 8.6H, Estimat Glomerular Filtration Rate 7.8, Glucose Level 119H, Calcium Level 8.3L, Total Bilirubin 0.7 , Aspartate Amino Transf (AST/SGOT) 27, Alanine Aminotransferase (ALT/SGPT) 38, Alkaline Phosphatase 109, Troponin I 0.482H, C-Reactive Protein, Quantitative [ Pending], Pro-B-Type Natriuretic Peptide [Pending], Total Protein 5.3L, Albumin 2.5L, Globulin 2.8, Albumin/Globulin Ratio 0.9L, Hemoglobin A1c 6.7H, Uric Acid 4.8, Phosphorus Level 6.8H, Magnesium Level 1.9, Gamma Glutamyl Transpeptidase 161H, Total Creatine Kinase 67, Triglycerides Level 95, Cholesterol Level 116, LDL Cholesterol 44, HDL Cholesterol 57, Cholesterol/HDL Ratio 2.0L, Thyroid Stimulating Hormone (TSH) 0.499 Current Medications Medications (Trade) Dose Ordered Sig/Jose Route PRN Reason Start Time Stop Time Status Last Admin Dose Admin Acetaminophen (Tylenol) 650 mg Q4H PRN ORAL T>100.5 06/03/17 13:30 07/03/17 13:29 Albuterol/ Ipratropium (Albuterol/ Ipratropium) 3 ml Q4H PRN HHN Shortness of Breath 06/03/17 13:30 06/08/17 13:29 Amlodipine Besylate (Norvasc) 10 mg DAILY ORAL 06/04/17 09:00 07/04/17 08:59 06/04/17 09:40 Aripiprazole (Abilify) 15 mg DAILY ORAL 06/04/17 09:00 07/04/17 08:59 06/04/17 09:38 Aspirin (ASA) 81 mg DAILY ORAL 06/04/17 09:30 07/04/17 09:29 06/04/17 10:01 Bupropion HCl (Wellbutrin) 100 mg BID ORAL 06/03/17 18:00 07/03/17 17:59 06/04/17 09:39 Carisoprodol (Soma) 350 mg Q6H PRN ORAL MUSCLE SPASMS 06/03/17 13:30 07/03/17 13:29 Carvedilol (Coreg) 25 mg EVERY 12 HOURS ORAL 06/03/17 21:00 07/03/17 20:59 06/04/17 09:39 Carvedilol (Coreg) 25 mg EVERY 12 HOURS ORAL 06/04/17 10:45 07/04/17 10:44 UNV Clonidine HCl (Catapres Tab) 0.1 mg Q4H PRN ORAL bp over 160 syst 06/03/17 16:30 07/03/17 16:29 Dextrose (Dextrose 50%) STAT PRN IV Hypoglycemia 06/03/17 13:30 07/03/17 13:29 Docusate Sodium (Colace) 100 mg THREE TIMES A DAY ORAL 06/03/17 18:00 07/03/17 17:59 06/04/17 09:41 Heparin Sodium (Porcine) (Heparin 5000 units/ml) 5,000 units EVERY 12 HOURS SUBQ 06/04/17 09:00 07/04/17 08:59 Lisinopril (Prinivil) 20 mg BID ORAL 06/04/17 09:00 07/04/17 08:59 06/04/17 09:40 Morphine Sulfate (Morphine Sulfate) 2 mg Q4H PRN IVP Prn Chest Pain 06/04/17 09:15 06/11/17 09:14 06/04/17 09:34 Nitroglycerin (Ntg) 0.4 mg Q5M PRN SL Prn Chest Pain 06/04/17 09:15 07/04/17 09:14 Nitroglycerin (Ntg) 1 patch Q24H TDERMAL 06/04/17 11:30 07/04/17 11:29 Ondansetron HCl (Zofran) 4 mg Q6H PRN IVP Nausea & Vomiting 06/03/17 13:30 07/03/17 13:29 Pantoprazole (Protonix) 40 mg DAILY ORAL 06/03/17 17:00 07/03/17 16:59 06/04/17 10:01 Polyethylene Glycol (Miralax) 17 gm DAILYPRN PRN ORAL Constipation 2/27/18 13:30 07/03/17 13:29 Sevelamer Carbonate (Renvela) 1,600 mg THREE TIMES A DAY ORAL 06/04/17 13:00 07/04/17 12:59 Temazepam (Restoril) 15 mg HSPRN PRN ORAL Insomnia 06/03/17 21:00 06/10/17 20:59 Rohan ([facility])Mariela NP Jun 04, 2017 11:27
--- NOTE | 2017-06-04 11:32 | Internal Med Progress Note ---
Subjective Date of Service: Jun 04, 2017 Physician Name Pires,Zoey Attending Physician Chaitanya Weinstein MD Current Medications Medications (Trade) Dose Ordered Sig/Jose Route PRN Reason Start Time Stop Time Status Last Admin Dose Admin Acetaminophen (Tylenol) 650 mg Q4H PRN ORAL T>100.5 06/03/17 13:30 07/03/17 13:29 Albuterol/ Ipratropium (Albuterol/ Ipratropium) 3 ml Q4H PRN HHN Shortness of Breath 06/03/17 13:30 06/08/17 13:29 Amlodipine Besylate (Norvasc) 10 mg DAILY ORAL 06/04/17 09:00 07/04/17 08:59 06/04/17 09:40 Aripiprazole (Abilify) 15 mg DAILY ORAL 06/04/17 09:00 07/04/17 08:59 06/04/17 09:38 Aspirin (ASA) 81 mg DAILY ORAL 06/04/17 09:30 07/04/17 09:29 06/04/17 10:01 Bupropion HCl (Wellbutrin) 100 mg BID ORAL 06/03/17 18:00 07/03/17 17:59 06/04/17 09:39 Carisoprodol (Soma) 350 mg Q6H PRN ORAL MUSCLE SPASMS 06/03/17 13:30 07/03/17 13:29 Carvedilol (Coreg) 25 mg EVERY 12 HOURS ORAL 06/04/17 11:30 07/04/17 11:29 Clonidine HCl (Catapres Tab) 0.1 mg Q4H PRN ORAL bp over 160 syst 06/03/17 16:30 07/03/17 16:29 Dextrose (Dextrose 50%) STAT PRN IV Hypoglycemia 06/03/17 13:30 07/03/17 13:29 Docusate Sodium (Colace) 100 mg THREE TIMES A DAY ORAL 06/03/17 18:00 07/03/17 17:59 06/04/17 09:41 Heparin Sodium (Porcine) (Heparin 5000 units/ml) 5,000 units EVERY 12 HOURS SUBQ 06/04/17 09:00 07/04/17 08:59 Lisinopril (Prinivil) 20 mg BID ORAL 06/04/17 09:00 07/04/17 08:59 06/04/17 09:40 Morphine Sulfate (Morphine Sulfate) 2 mg Q4H PRN IVP Prn Chest Pain 06/04/17 09:15 06/11/17 09:14 06/04/17 09:34 Nitroglycerin (Ntg) 0.4 mg Q5M PRN SL Prn Chest Pain 06/04/17 09:15 07/04/17 09:14 Nitroglycerin (Ntg) 1 patch Q24H TDERMAL 06/04/17 11:30 07/04/17 11:29 Ondansetron HCl (Zofran) 4 mg Q6H PRN IVP Nausea & Vomiting 06/03/17 13:30 07/03/17 13:29 Pantoprazole (Protonix) 40 mg DAILY ORAL 06/03/17 17:00 07/03/17 16:59 06/04/17 10:01 Polyethylene Glycol (Miralax) 17 gm DAILYPRN PRN ORAL Constipation 06/03/17 13:30 07/03/17 13:29 Sevelamer Carbonate (Renvela) 1,600 mg THREE TIMES A DAY ORAL 06/04/17 13:00 07/04/17 12:59 Temazepam (Restoril) 15 mg HSPRN PRN ORAL Insomnia 06/03/17 21:00 06/10/17 20:59 Allergies: Coded Allergies: No Known Allergies (Unverified , 10/24/15) ROS Limited/Unobtainable: No Constitutional: Reports: no symptoms HEENT: Reports: no symptoms Cardiovascular: Reports: no symptoms Respiratory: Reports: shortness of breath Gastrointestinal/Abdominal: Reports: no symptoms Genitourinary: Reports: no symptoms Neurologic/Psychiatric: Reports: no symptoms Subjective 57 YO M admitted with chest pain and shortness of breath. Now pneumonia and candelaria heart failure. On BIPAP. Cover for Int Misbah-Dr Weinstein. HIMANSHU Objective Last Vital Signs Date Time Temp Pulse Resp B/P (MAP) Pulse Ox O2 Delivery O2 Flow Rate FiO2 06/04/17 11:00 84 18 96 Facial 40 06/04/17 09:40 146/78 06/04/17 07:18 3.0 06/04/17 00:00 98.5 98.5 General Appearance: WD/WN, alert, moderate distress EENT: PERRL/EOMI, normal ENT inspection Neck: non-tender, normal alignment, supple, normal inspection Cardiovascular: normal peripheral pulses, normal rate, regular rhythm, no gallop/murmur, no JVD Respiratory/Chest: respiratory distress, crackles/rales, rhonchi - bilaterally , expiratory wheezing Abdomen: normal bowel sounds, non tender, soft, no organomegaly, no mass Extremities: normal range of motion 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, no motor/sensory deficits Skin: normal pigmentation, warm/dry Laboratory Tests Test 06/03/17 13:45 06/03/17 13:50 06/04/17 08:45 Arterial Blood pH 7.380 (7.350-7.450) Arterial Blood Partial Pressure CO2 37.3 mmHg (35.0-45.0) Arterial Blood Partial Pressure O2 76.3 mmHg (75.0-100.0) Arterial Blood HCO3 21.9 mmol/L (22.0-26.0) L Arterial Blood Oxygen Saturation 92.7 % (92.0-98.0) Arterial Blood Base Excess -2.8 Juan A Test Positive White Blood Count 12.0 K/UL (4.8-10.8) H 10.6 K/UL (4.8-10.8) Red Blood Count 3.24 M/UL (4.70-6.10) L 2.55 M/UL (4.70-6.10) L Hemoglobin 9.3 G/DL (14.2-18.0) L 7.2 G/DL (14.2-18.0) L Hematocrit 29.1 % (42.0-52.0) L 22.7 % (42.0-52.0) L Mean Corpuscular Volume 90 FL (80-99) 89 FL (80-99) Mean Corpuscular Hemoglobin 28.7 PG (27.0-31.0) 28.2 PG (27.0-31.0) Mean Corpuscular Hemoglobin Concent 31.9 G/DL (32.0-36.0) L 31.7 G/DL (32.0-36.0) L Red Cell Distribution Width 16.3 % (11.6-14.8) H 16.0 % (11.6-14.8) H Platelet Count 96 K/UL (150-450) L 72 K/UL (150-450) L Mean Platelet Volume 9.3 FL (6.5-10.1) 9.4 FL (6.5-10.1) Neutrophils (%) (Auto) % (45.0-75.0) % (45.0-75.0) Lymphocytes (%) (Auto) % (20.0-45.0) % (20.0-45.0) Monocytes (%) (Auto) % (1.0-10.0) % (1.0-10.0) Eosinophils (%) (Auto) % (0.0-3.0) % (0.0-3.0) Basophils (%) (Auto) % (0.0-2.0) % (0.0-2.0) Differential Total Cells Counted 100 Neutrophils % (Manual) 76 % (45-75) H Pending Lymphocytes % (Manual) 9 % (20-45) L Pending Monocytes % (Manual) 15 % (1-10) H Eosinophils % (Manual) 0 % (0-3) Basophils % (Manual) 0 % (0-2) Band Neutrophils 0 % (0-8) Platelet Estimate Decreased L Pending Platelet Morphology Normal Pending Hypochromasia 2+ Sodium Level 137 MMOL/L (136-145) 138 MMOL/L (136-145) Potassium Level 6.2 MMOL/L (3.5-5.1) *H 4.4 MMOL/L (3.5-5.1) Chloride Level 98 MMOL/L (98-107) 98 MMOL/L (98-107) Carbon Dioxide Level 23 MMOL/L (21-32) 29 MMOL/L (21-32) Anion Gap 15 mmol/L (5-15) 11 mmol/L (5-15) Blood Urea Nitrogen 103 mg/dL (7-18) H 77 mg/dL (7-18) H Creatinine 10.5 MG/DL (0.55-1.30) H 8.6 MG/DL (0.55-1.30) H Estimat Glomerular Filtration Rate 6.2 mL/min (>60) 7.8 mL/min (>60) Glucose Level 58 MG/DL (74-106) L 119 MG/DL (74-106) H Calcium Level 9.2 MG/DL (8.5-10.1) 8.3 MG/DL (8.5-10.1) L Total Bilirubin 0.7 MG/DL (0.2-1.0) 0.7 MG/DL (0.2-1.0) Aspartate Amino Transf (AST/SGOT) 33 U/L (15-37) 27 U/L (15-37) Alanine Aminotransferase (ALT/SGPT) 46 U/L (12-78) 38 U/L (12-78) Alkaline Phosphatase 120 U/L (46-116) H 109 U/L (46-116) Troponin I 0.380 ng/mL (0.000-0.056) 0.482 ng/mL (0.000-0.056) C-Reactive Protein, Quantitative 4.6 mg/dL (0.00-0.90) H 14.0 mg/dL (0.00-0.90) H Pro-B-Type Natriuretic Peptide > 58365 pg/mL (0-125) H Pending Total Protein 7.4 G/DL (6.4-8.2) 5.3 G/DL (6.4-8.2) L Albumin 3.3 G/DL (3.4-5.0) L 2.5 G/DL (3.4-5.0) L Globulin 4.1 g/dL 2.8 g/dL Albumin/Globulin Ratio 0.8 (1.0-2.7) L 0.9 (1.0-2.7) L Hemoglobin A1c 6.7 % (4.3-6.0) H Uric Acid 4.8 MG/DL (2.6-7.2) Phosphorus Level 6.8 MG/DL (2.5-4.9) H Magnesium Level 1.9 MG/DL (1.8-2.4) Gamma Glutamyl Transpeptidase 161 U/L (5-85) H Total Creatine Kinase 67 U/L (26-308) Triglycerides Level 95 MG/DL (30-150) Cholesterol Level 116 MG/DL (< 200) LDL Cholesterol 44 mg/dL (<100) HDL Cholesterol 57 MG/DL (40-60) Cholesterol/HDL Ratio 2.0 (3.3-4.4) L Thyroid Stimulating Hormone (TSH) 0.499 uiU/mL (0.358-3.740) Microbiology Date/Time Source Procedure Growth Status 06/03/17 14:45 Nasal Nares Influenza Types A,B Antigen (RELL) - Final Complete Intake and Output 06/03/17 06/04/17 19:00 07:00 Intake Total 110.0 ml Output Total 6000 ml Balance 110.0 ml -6000 ml Intake Oral 0 ml IV Total 110.0 ml Output Hemodialysis UF 6000 ml # Bowel Movements 1 1 Assessment/Plan Problem List: (1) Respiratory failure Assessment & Plan: CHF and Pneumonia. ?volume overload? Currently on BIPAP. See pulmonay note. (2) Pleuritic chest pain (3) Hemoptysis Assessment & Plan: Due to pneumonia (4) Pneumonia Assessment & Plan: RUL and cavitary. Concerning for TB. Await PPD test and ID consult. (5) Shortness of breath (6) ESRD (end stage renal disease) on dialysis Assessment & Plan: See nephrology note. Hemodialysis today (7) Hyperkalemia Assessment & Plan: Due to renal failure. Hemodialysis today (8) COPD (chronic obstructive pulmonary disease) (9) HTN (hypertension) Assessment & Plan: Continue coreg and lisinopril. (10) CHF (congestive heart failure) (11) Elevated troponin Assessment & Plan: ?due to renal failure? See cardiology note. Status: not improved ZOEY PIRES Jun 04, 2017 11:31
[2017-06-04] MEDS: Nitroglycerin Patch 0.4mg TDERMAL SCH (12:42)
--- NOTE | 2017-06-04 12:44 | Consultation ---
Consult Note Consult Note ID DIC # [id number] PREET GUAJARDO M.D. Jun 04, 2017 12:44
[2017-06-04] MEDS ORDERED: PPD Tuberculin Skin Test 5TU IDERMAL ONE (14:00)
[2017-06-04] MEDS: Piperacillin/Tazobactam 2.25 GM in NS 55 ML IVPB SCH ×2 (14:12→22:00)
[2017-06-04] MEDS ORDERED: Vancomycin 1500mg IVPB ONE ×2 (16:00→22:00)
--- NOTE | 2017-06-04 16:03 | Cardiology Report ---
APPROVED REPORT EKG Measurement Heart [id number] Sinus tachycardia Otherwise normal ECG
[2017-06-04] MEDS: Azithromycin 500 MG in D5W 275 ML IV SCH (16:07)
--- NOTE | 2017-06-04 16:48 | Diagnostic Imaging Report ---
Indication: Abnormal renal function tests Technique: Grayscale and duplex images of the kidneys, retroperitoneum, and bladder Comparison: none Findings: Right kidney measures 11.3 cm in length. The left kidney cannot be visualized, due to patient body habitus and inability to cooperate. No hydronephrosis is seen on the right.. Focal abnormality The bladder is empty and not visualized. Impression: Very limited exam, resulting in nonvisualization of the left kidney and the bladder No right hydronephrosis demonstrated
[2017-06-04] MEDS ORDERED: NS 500ML ONE (17:34)
[2017-06-04] MEDS ORDERED: Morphine Sulfate 4mg/ml Inj IVP PRN (18:00)
[2017-06-04] MEDS: ALPRAZolam 0.5mg tab ORAL SCH (18:17)
[2017-06-04] MEDS: Nitroglycerin Subl 0.4mg tab SL PRN (18:20)
--- NOTE | 2017-06-04 20:15 | Cardiology Progress Note ---
Assessment/Plan Assessment/Plan plueritic chest pain neg recent sig perfusion abn; systolic dysfunction on mild degree involving the septum cavitating lung lesion esrd htn anemia icd hx tropn min abn related to esrd likely as no peak no jennifer venoud duplex pending may need ct of chest echo reviewed swma in septum (possible) as tech difficult study ef 45% dialysis per dr grimaldo bp meds adjsuted bp ios better hgb loer had dialysis still has need cirilo be on bipap but intermittently refuses pain meds as per dr lemos Subjective Cardiovascular: Reports: chest pain - with deep inspriation , Denies: lightheadedness, palpitations Respiratory: Reports: cough, shortness of breath Gastrointestinal/Abdominal: Denies: abdominal pain Genitourinary: Denies: burning Objective Last 24 Hour Vital Signs Date Time Temp Pulse Resp B/P (MAP) Pulse Ox O2 Delivery O2 Flow Rate FiO2 06/04/17 18:20 122/76 06/04/17 18:18 122/76 06/04/17 17:45 30 06/04/17 17:15 Nasal Cannula 3.0 40 06/04/17 16:00 92 06/04/17 16:00 5.0 06/04/17 14:54 Nasal Cannula 3.0 40 06/04/17 12:42 122/76 06/04/17 12:41 75 122/75 06/04/17 12:11 71 06/04/17 12:00 5.0 06/04/17 12:00 Nasal Cannula 3.0 40 06/04/17 11:00 84 18 96 Facial 40 06/04/17 09:40 146/78 06/04/17 09:40 99 146/78 06/04/17 09:39 99 146/78 06/04/17 09:26 86 26 94 Facial 40 06/04/17 08:00 30 06/04/17 07:34 101 06/04/17 07:18 Nasal Cannula 3.0 32 06/04/17 07:15 92 Nasal Cannula 3.0 32 06/04/17 05:14 88 28 93 Facial 40 06/04/17 04:00 30 06/04/17 03:54 92 06/04/17 03:30 85 30 94 Facial 40 06/04/17 01:01 80 18 95 Facial 40 06/04/17 00:00 98.5 90 24 128/79 Nasal Cannula 2.0 98.5 06/04/17 00:00 Nasal Cannula 2.0 06/03/17 23:56 89 06/03/17 23:30 81 20 94 Facial 40 06/03/17 21:00 Nasal Cannula 2.0 06/03/17 21:00 98.2 91 28 146/90 Nasal Cannula 2.0 98.2 06/03/17 20:58 86 149/98 06/03/17 20:51 94 Nasal Cannula 2.0 28 06/03/17 20:51 Nasal Cannula 2.0 28 06/03/17 20:50 90 20 Bi-pap 30 General Appearance: alert, other - on bipap Neck: supple Cardiovascular: normal rate Respiratory/Chest: rhonchi - bilaterally Abdomen: normal bowel sounds, non tender, soft Extremities: no swelling Intake and Output 06/03/17 06/04/17 19:00 07:00 Intake Total 110.0 ml Output Total 6000 ml Balance 110.0 ml -6000 ml Intake Oral 0 ml IV Total 110.0 ml Output Hemodialysis UF 6000 ml # Bowel Movements 1 1 Laboratory Tests Test 06/04/17 08:45 06/04/17 13:40 White Blood Count 10.6 K/UL (4.8-10.8) Red Blood Count 2.55 M/UL (4.70-6.10) L Hemoglobin 7.2 G/DL (14.2-18.0) L Hematocrit 22.7 % (42.0-52.0) L Mean Corpuscular Volume 89 FL (80-99) Mean Corpuscular Hemoglobin 28.2 PG (27.0-31.0) Mean Corpuscular Hemoglobin Concent 31.7 G/DL (32.0-36.0) L Red Cell Distribution Width 16.0 % (11.6-14.8) H Platelet Count 72 K/UL (150-450) L Mean Platelet Volume 9.4 FL (6.5-10.1) Neutrophils (%) (Auto) % (45.0-75.0) Lymphocytes (%) (Auto) % (20.0-45.0) Monocytes (%) (Auto) % (1.0-10.0) Eosinophils (%) (Auto) % (0.0-3.0) Basophils (%) (Auto) % (0.0-2.0) Differential Total Cells Counted 100 Neutrophils % (Manual) 83 % (45-75) H Lymphocytes % (Manual) 8 % (20-45) L Monocytes % (Manual) 9 % (1-10) Eosinophils % (Manual) 0 % (0-3) Basophils % (Manual) 0 % (0-2) Band Neutrophils 0 % (0-8) Platelet Estimate Decreased L Platelet Morphology Normal Hypochromasia 1+ Anisocytosis 1+ Sodium Level 138 MMOL/L (136-145) Potassium Level 4.4 MMOL/L (3.5-5.1) Chloride Level 98 MMOL/L (98-107) Carbon Dioxide Level 29 MMOL/L (21-32) Anion Gap 11 mmol/L (5-15) Blood Urea Nitrogen 77 mg/dL (7-18) H Creatinine 8.6 MG/DL (0.55-1.30) H Estimat Glomerular Filtration Rate 7.8 mL/min (>60) Glucose Level 119 MG/DL (74-106) H Hemoglobin A1c 6.7 % (4.3-6.0) H Uric Acid 4.8 MG/DL (2.6-7.2) Calcium Level 8.3 MG/DL (8.5-10.1) L Phosphorus Level 6.8 MG/DL (2.5-4.9) H Magnesium Level 1.9 MG/DL (1.8-2.4) Total Bilirubin 0.7 MG/DL (0.2-1.0) Gamma Glutamyl Transpeptidase 161 U/L (5-85) H Aspartate Amino Transf (AST/SGOT) 27 U/L (15-37) Alanine Aminotransferase (ALT/SGPT) 38 U/L (12-78) Alkaline Phosphatase 109 U/L (46-116) Total Creatine Kinase 67 U/L (26-308) Troponin I 0.482 ng/mL (0.000-0.056) 0.463 ng/mL (0.000-0.056) C-Reactive Protein, Quantitative 14.0 mg/dL (0.00-0.90) H Pro-B-Type Natriuretic Peptide > 59527 pg/mL (0-125) H Total Protein 5.3 G/DL (6.4-8.2) L Albumin 2.5 G/DL (3.4-5.0) L Globulin 2.8 g/dL Albumin/Globulin Ratio 0.9 (1.0-2.7) L Triglycerides Level 95 MG/DL (30-150) Cholesterol Level 116 MG/DL (< 200) LDL Cholesterol 44 mg/dL (<100) HDL Cholesterol 57 MG/DL (40-60) Cholesterol/HDL Ratio 2.0 (3.3-4.4) L Thyroid Stimulating Hormone (TSH) 0.499 uiU/mL (0.358-3.740) Coccidioides Antibody (Comp Fix) Pending Cryptococcus Antigen Pending Microbiology Date/Time Source Procedure Growth Status 06/03/17 14:45 Nasal Nares Influenza Types A,B Antigen (RELL) - Final Complete PRECIOUS GARCIA Jun 04, 2017 20:15
--- NOTE | 2017-06-04 22:01 | Consultation ---
DATE OF CONSULTATION: 06/04/2017 INFECTIOUS DISEASE CONSULTATION CONSULTING PHYSICIAN: Cristofer Antunez M.D. REQUESTING PHYSICIAN: Ellis Calloway M.D. REASON FOR CONSULTATION: Evaluation of the patient for pneumonia, probable lung cavity, hemoptysis, antibiotic management. HISTORY OF PRESENT ILLNESS: The patient is a 57-year-old male with multiple medical problems as listed below, who was admitted to this medical center because of cough and sputum production/hemoptysis for the last four days prior to admission. This patient has been complaining of also sweats. No weight loss. The patient mentioned that he had in the past skin tuberculosis test that had been negative. The patient's x-ray is suggestive of possible cavitary lesion. Infectious Disease consultation has been requested for further evaluation of the patient and antibiotic management. The patient has been placed on BiPAP due to respiratory distress. PAST MEDICAL HISTORY: 1. Seizure disorder. 2. History of CVA. 3. History of pacemaker placement. 4. Hyperlipidemia. 5. Hypertension. 6. COPD/asthma. 7. End-stage renal disease, on hemodialysis. 8. Diabetes. 9. Anxiety. 10. Anemia. MEDICATIONS: The patient received a dose of Zosyn and Zithromax in the emergency room. ALLERGIES: No known drug allergies. SOCIAL HISTORY: Negative for alcohol, drug abuse, or smoking. FAMILY HISTORY: Not contributing. REVIEW OF SYSTEMS: HEENT: No recent change in vision or hearing. PULMONARY: As mentioned above. CARDIOVASCULAR: No chest pain or palpitations. GASTROINTESTINAL/ABDOMEN: No nausea or vomiting. GENITOURINARY: As mentioned above. PHYSICAL EXAMINATION: VITAL SIGNS: Temperature 100.3 degrees, pulse 86, respiratory rate 18, and blood pressure 149/78. HEENT: No pale conjunctivae. No icterus. NECK: No lymphadenopathy. CHEST: Coarse breathing sounds. HEART: S1 and S2. ABDOMEN: Obese. EXTREMITIES: No cyanosis at this time. NEUROLOGIC: Awake. LABORATORY AND DIAGNOSTIC DATA: White blood cell count is 10, hemoglobin 7, and platelets 72. BUN 77 and creatinine 8.6. ALT, AST, and alkaline phosphatase are unremarkable. CRP 14. Troponin 0.48. Influenza test negative. Chest x-ray shows right mid lung infiltrate, possible eccentric cavitation. Echo, ejection fraction 45% to 50%. ASSESSMENT: The patient is a 57-year-old male with, 1. Low-grade fever. 2. Status post leukocytosis. 3. Thrombocytopenia. 4. Influenza A and B screen negative. 5. Pneumonia with possible cavitary lesion/hemoptysis. 6. Rule out tuberculosis, fungal infection, or necrotizing pneumonia. PLAN: 1. We will start the patient on Zosyn, vancomycin and Zithromax day #1. 2. We will send sputum culture (bacterial, fungal, and AFB x3). 3. T-SPOT. 4. We will send sputum for MTB PCR. 5. Coccidioidal and cryptococcus serology. 6. Galactomannan and Fungitell. 7. Airborne isolation. 8. CT scan of the chest. 9. Monitor the patient's clinical course and labs. 10. Monitor blood culture. 11. Based on the patient's workups, we will do further recommendations. Cristofer Antunez M.D. DR: ARGELIA JOB#: [id number] CC:
[2017-06-05] MEDS: Nitroglycerin Subl 0.4mg tab SL PRN (00:34)
[2017-06-05] MEDS: Morphine Sulfate 4mg/ml Inj IVP PRN ×4 (02:51→21:10)
[2017-06-05 06:27] LABS: MEAN CORPUSCULAR VOLUME 89 FL (80-99); PLATELET COUNT 68 K/UL (150-450); RED BLOOD COUNT 2.14 M/UL (4.70-6.10); RED CELL DISTRIBUTION WIDTH 16.5 % (11.6-14.8); WHITE BLOOD COUNT 7.8 K/UL (4.8-10.8)
[2017-06-05 06:42] LABS: ALANINE AMINOTRANSFERASE 31 U/L (12-78); ALBUMIN 2.1 G/DL (3.4-5.0); ALBUMIN/GLOBULIN RATIO 0.7 (1.0-2.7); ALKALINE PHOSPHATASE 89 U/L (46-116); ANION GAP 8 mmol/L (5-15); ASPARTATE AMINO TRANSFERASE 17 U/L (15-37); BILIRUBIN,TOTAL 0.7 MG/DL (0.2-1.0); BLOOD UREA NITROGEN 66 mg/dL (7-18); CALCIUM 7.8 MG/DL (8.5-10.1); CARBON DIOXIDE 31 MMOL/L (21-32); CHLORIDE 100 MMOL/L (98-107); CREATININE 8.3 MG/DL (0.55-1.30); POTASSIUM 3.8 MMOL/L (3.5-5.1); SODIUM 139 MMOL/L (136-145)
[2017-06-05 06:44] LABS: HEMOGLOBIN 5.9 G/DL (14.2-18.0)
[2017-06-05] MEDS: Piperacillin/Tazobactam 2.25 GM in NS 55 ML IVPB SCH ×3 (07:37→21:27)
[2017-06-05 08:00] VITALS: BP 107/65
--- NOTE | 2017-06-05 08:00 | Pulmonology Progress Note ---
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 check sputum sputum induction Subjective Interval Events: feeling better Allergies: Coded Allergies: No Known Allergies (Unverified , 10/24/15) Objective Last 24 Hour Vital Signs Date Time Temp Pulse Resp B/P (MAP) Pulse Ox O2 Delivery O2 Flow Rate FiO2 06/05/17 05:24 76 25 95 Facial 40 06/05/17 04:00 40 06/05/17 03:40 79 27 96 Facial 40 06/05/17 00:34 132/62 06/05/17 00:16 79 06/05/17 00:00 40 06/04/17 23:30 81 28 95 Facial 40 06/04/17 21:30 80 26 96 Facial 40 06/04/17 20:48 80 101/62 06/04/17 20:00 40 06/04/17 19:43 75 06/04/17 19:30 95 Nasal Cannula 2.0 28 06/04/17 19:30 Nasal Cannula 2.0 28 06/04/17 19:30 82 24 95 Facial 40 06/04/17 18:20 122/76 06/04/17 18:18 122/76 06/04/17 17:45 30 06/04/17 17:15 Nasal Cannula 3.0 40 06/04/17 16:00 92 06/04/17 16:00 5.0 06/04/17 14:54 Nasal Cannula 3.0 40 06/04/17 12:42 122/76 06/04/17 12:41 75 122/75 06/04/17 12:11 71 06/04/17 12:00 5.0 06/04/17 12:00 Nasal Cannula 3.0 40 06/04/17 11:00 84 18 96 Facial 40 06/04/17 09:40 146/78 06/04/17 09:40 99 146/78 06/04/17 09:39 99 146/78 06/04/17 09:26 86 26 94 Facial 40 06/04/17 08:00 30 Intake and Output 06/04/17 06/05/17 19:00 07:00 Output Total 3700 ml Balance -3700 ml Output Hemodialysis UF 3700 ml # Voids 1 General Appearance: WD/WN HEENT: normocephalic, atraumatic Respiratory/Chest: chest wall non-tender, lungs clear Cardiovascular: normal peripheral pulses, normal rate Abdomen: normal bowel sounds, soft, non tender Genitourinary: normal external genitalia Skin: no rash, no ulcers Microbiology Date/Time Source Procedure Growth Status 06/03/17 14:45 Nasal Nares Influenza Types A,B Antigen (RELL) - Final Complete Laboratory Tests 06/04/17 08:45: White Blood Count 10.6, Red Blood Count 2.55L, Hemoglobin 7.2L, Hematocrit 22.7L , Mean Corpuscular Volume 89, Mean Corpuscular Hemoglobin 28.2, Mean Corpuscular Hemoglobin Concent 31.7L, Red Cell Distribution Width 16.0H, Platelet Count 72L, Mean Platelet Volume 9.4, Neutrophils (%) (Auto) , Lymphocytes (%) (Auto) , Monocytes (%) (Auto) , Eosinophils (%) (Auto) , Basophils (%) (Auto) , Differential Total Cells Counted 100, Neutrophils % ( Manual) 83H, Lymphocytes % (Manual) 8L, Monocytes % (Manual) 9, Eosinophils % ( Manual) 0, Basophils % (Manual) 0, Band Neutrophils 0, Platelet Estimate DecreasedL, Platelet Morphology Normal, Hypochromasia 1+, Anisocytosis 1+, Sodium Level 138, Potassium Level 4.4, Chloride Level 98, Carbon Dioxide Level 29, Anion Gap 11, Blood Urea Nitrogen 77H, Creatinine 8.6H, Estimat Glomerular Filtration Rate 7.8, Glucose Level 119H, Hemoglobin A1c 6.7H, Uric Acid 4.8, Calcium Level 8.3L, Phosphorus Level 6.8H, Magnesium Level 1.9, Total Bilirubin 0.7, Gamma Glutamyl Transpeptidase 161H, Aspartate Amino Transf (AST/SGOT) 27, Alanine Aminotransferase (ALT/SGPT) 38, Alkaline Phosphatase 109, Total Creatine Kinase 67, Troponin I 0.482H, C-Reactive Protein, Quantitative 14.0H, Pro-B-Type Natriuretic Peptide > 18525D, Total Protein 5.3L, Albumin 2.5L, Globulin 2.8, Albumin/Globulin Ratio 0.9L, Triglycerides Level 95, Cholesterol Level 116, LDL Cholesterol 44, HDL Cholesterol 57, Cholesterol/HDL Ratio 2.0L, Thyroid Stimulating Hormone (TSH) 0.499 06/04/17 13:40: Troponin I 0.463H, Coccidioides Antibody (Comp Fix) [Pending], Cryptococcus Antigen [Pending] 06/05/17 05:55: White Blood Count 7.8, Red Blood Count 2.14L, Hemoglobin 5.9*L, Hematocrit 19.0L , Mean Corpuscular Volume 89, Mean Corpuscular Hemoglobin 27.8, Mean Corpuscular Hemoglobin Concent 31.3L, Red Cell Distribution Width 16.5H, Platelet Count 68L, Mean Platelet Volume 7.4, Neutrophils (%) (Auto) , Lymphocytes (%) (Auto) , Monocytes (%) (Auto) , Eosinophils (%) (Auto) , Basophils (%) (Auto) , Neutrophils % (Manual) [Pending], Lymphocytes % (Manual) [Pending], Platelet Estimate [Pending], Platelet Morphology [Pending], Sodium Level 139, Potassium Level 3.8, Chloride Level 100, Carbon Dioxide Level 31, Anion Gap 8, Blood Urea Nitrogen 66H, Creatinine 8.3H, Estimat Glomerular Filtration Rate 8.1, Glucose Level 116H, Uric Acid 4.5, Calcium Level 7.8L, Phosphorus Level 6.0H, Magnesium Level 1.8, Total Bilirubin 0.7, Aspartate Amino Transf (AST/SGOT) 17, Alanine Aminotransferase (ALT/SGPT) 31, Alkaline Phosphatase 89, Troponin I 0.394H, Pro-B-Type Natriuretic Peptide > 17277V, Total Protein 5.1L, Albumin 2.1L, Globulin 3.0, Albumin/Globulin Ratio 0.7L, Random Vancomycin Level 8.2, TB Test (T-Spot) [Pending], TB Test Nil Control (T- Spot) [Pending], TB Test Panel A (T-Spot) [Pending], TB Test Panel B (T-Spot) [ Pending], TB Test Positive Control (T-Spot) [Pending] Current Medications Medications (Trade) Dose Ordered Sig/Jose Route PRN Reason Start Time Stop Time Status Last Admin Dose Admin Acetaminophen (Tylenol) 650 mg Q4H PRN ORAL T>100.5 06/03/17 13:30 07/03/17 13:29 06/05/17 00:32 Albuterol/ Ipratropium (Albuterol/ Ipratropium) 3 ml Q4H PRN HHN Shortness of Breath 06/03/17 13:30 06/08/17 13:29 Alprazolam (Xanax) 2 mg BID ORAL 06/04/17 18:00 06/11/17 17:59 06/04/17 18:17 Alprazolam (Xanax) 2 mg DAILYPRN PRN ORAL For Anxiety 06/04/17 12:00 06/11/17 11:59 Amlodipine Besylate (Norvasc) 10 mg DAILY ORAL 06/04/17 09:00 07/04/17 08:59 06/04/17 09:40 Aripiprazole (Abilify) 15 mg DAILY ORAL 06/04/17 09:00 07/04/17 08:59 06/04/17 09:38 Aspirin (ASA) 81 mg DAILY ORAL 06/04/17 09:30 07/04/17 09:29 06/04/17 10:01 Azithromycin 500 mg/Dextrose 275 ml @ 275 mls/hr Q24HRS IV 06/04/17 15:00 06/10/17 15:59 06/04/17 16:07 Bupropion HCl (Wellbutrin) 100 mg BID ORAL 06/03/17 18:00 07/03/17 17:59 06/04/17 18:18 Carisoprodol (Soma) 350 mg BID ORAL 06/04/17 18:00 07/04/17 17:59 06/04/17 16:05 Carisoprodol (Soma) 350 mg Q6H PRN ORAL MUSCLE SPASMS 06/03/17 13:30 07/03/17 13:29 Carvedilol (Coreg) 25 mg EVERY 12 HOURS ORAL 06/04/17 11:30 07/04/17 11:29 06/04/17 12:41 Clonidine HCl (Catapres Tab) 0.1 mg Q4H PRN ORAL bp over 160 syst 06/03/17 16:30 07/03/17 16:29 Dextrose (Dextrose 50%) STAT PRN IV Hypoglycemia 06/03/17 13:30 07/03/17 13:29 Docusate Sodium (Colace) 100 mg THREE TIMES A DAY ORAL 06/03/17 18:00 07/03/17 17:59 06/04/17 18:00 Heparin Sodium (Porcine) (Heparin 5000 units/ml) 5,000 units EVERY 12 HOURS SUBQ 06/04/17 09:00 07/04/17 08:59 06/04/17 20:50 Lisinopril (Prinivil) 20 mg BID ORAL 06/04/17 09:00 07/04/17 08:59 06/04/17 18:18 Morphine Sulfate (Morphine Sulfate) 4 mg Q4H PRN IVP BREAKTHROUGH CHEST PAIN 06/04/17 22:00 06/11/17 21:59 06/05/17 02:51 Nitroglycerin (Ntg) 0.4 mg Q5M PRN SL Prn Chest Pain 06/04/17 09:15 07/04/17 09:14 06/05/17 00:34 Nitroglycerin (Ntg) 1 patch Q24H TDERMAL 06/04/17 11:30 07/04/17 11:29 06/04/17 12:42 Ondansetron HCl (Zofran) 4 mg Q6H PRN IVP Nausea & Vomiting 06/03/17 13:30 07/03/17 13:29 Pantoprazole (Protonix) 40 mg DAILY ORAL 06/03/17 17:00 07/03/17 16:59 06/04/17 10:01 Piperacillin Sod/ Tazobactam Sod 2.25 gm/Sodium Chloride 55 ml @ 110 mls/hr Q8HR IVPB 06/04/17 14:00 06/09/17 13:59 06/05/17 07:37 Polyethylene Glycol (Miralax) 17 gm DAILYPRN PRN ORAL Constipation 06/03/17 13:30 07/03/17 13:29 Sevelamer Carbonate (Renvela) 1,600 mg THREE TIMES A DAY ORAL 06/04/17 13:00 07/04/17 12:59 06/04/17 18:00 Temazepam (Restoril) 15 mg HSPRN PRN ORAL Insomnia 06/03/17 21:00 06/10/17 20:59 06/04/17 21:51 Vancomycin HCl (Vanco rx to dose) 1 ea DAILY PRN MISC Per rx protocol 06/04/17 12:45 07/04/17 12:44 MAICO SYED Jun 05, 2017 08:00
[2017-06-05] MEDS ORDERED: Promethazine/Codeine 5ml UD ORAL PRN (08:30)
[2017-06-05] MEDS: Heparin 5000 units/ml inj SUBQ SCH ×2 (09:00→21:00)
[2017-06-05] MEDS ORDERED: Vancomycin 1.5 GM/D5W 250ML IVPB ONE (10:00)
[2017-06-05] MEDS: Docusate 100mg cap ORAL SCH ×3 (10:01→18:00)
[2017-06-05] MEDS: Aspirin Baby 81mg ORAL SCH (10:01)
[2017-06-05] MEDS: ALPRAZolam 0.5mg tab ORAL SCH ×2 (10:08→17:59)
[2017-06-05] MEDS: Carvedilol 25mg Tab ORAL SCH ×2 (10:09→21:11)
[2017-06-05] MEDS: Lisinopril 20mg tab ORAL SCH ×2 (10:10→18:02)
[2017-06-05] MEDS ORDERED: Lidocaine 1% MPF 10mg/ml 5ml INJ ONE (10:30)
[2017-06-05] MEDS ORDERED: Heparin 2000 units/Ns 1000ml INJ ONE (10:30)
[2017-06-05 12:30] VITALS: BP 98/63
[2017-06-05] MEDS: Nitroglycerin Patch 0.4mg TDERMAL SCH (13:07)
--- NOTE | 2017-06-05 13:50 | Infectious Diseases Prog Note ---
Assessment/Plan Assessment/Plan ASSESSMENT: The patient is a 57-year-old male with, Low-grade fever. Status post leukocytosis. Thrombocytopenia. Influenza A and B screen negative. Pneumonia with possible cavitary lesion/hemoptysis. Chest x-ray : right mid lung infiltrate, possible cavitation Rule out tuberculosis, fungal infection, or necrotizing pneumonia. CRP 14 Influenza negative Seizure disorder History of CVA History of pacemaker placement Hyperlipidemia Hypertension COPD/asthma End-stage renal disease, on hemodialysis Diabetes Anxiety Anemia Echo, ejection fraction 45% to 50%. PLAN: Patient on Zosyn, vancomycin and Zithromax day # 2 sputum culture (bacterial, fungal, and AFB x3). T-SPOT. sputum for MTB PCR. Coccidioidal and cryptococcus serology. Galactomannan and Fungitell. Airborne isolation. ( was ordered CT scan of the chest : P Subjective Allergies: Coded Allergies: No Known Allergies (Unverified , 10/24/15) Subjective afebrile Objective Vital Signs Last 24 Hour Vital Signs Date Time Temp Pulse Resp B/P (MAP) Pulse Ox O2 Delivery O2 Flow Rate FiO2 06/05/17 13:07 98/63 06/05/17 12:00 72 06/05/17 11:15 77 19 93 06/05/17 10:20 73 107/65 06/05/17 10:10 107/65 06/05/17 10:09 73 107/65 06/05/17 08:56 Bi-pap 06/05/17 08:56 100 Bi-pap 06/05/17 08:00 84 06/05/17 08:00 40 06/05/17 07:29 77 24 100 Facial 40 06/05/17 05:24 76 25 95 Facial 40 06/05/17 04:49 92 06/05/17 04:00 40 06/05/17 03:40 79 27 96 Facial 40 06/05/17 00:34 132/62 06/05/17 00:16 79 06/05/17 00:00 40 06/04/17 23:30 81 28 95 Facial 40 06/04/17 21:30 80 26 96 Facial 40 06/04/17 20:48 80 101/62 06/04/17 20:00 40 06/04/17 19:43 75 06/04/17 19:30 95 Nasal Cannula 2.0 28 06/04/17 19:30 Nasal Cannula 2.0 28 06/04/17 19:30 82 24 95 Facial 40 06/04/17 18:20 122/76 06/04/17 18:18 122/76 06/04/17 17:45 30 06/04/17 17:15 Nasal Cannula 3.0 40 06/04/17 16:00 92 06/04/17 16:00 5.0 06/04/17 14:54 Nasal Cannula 3.0 40 Height (Feet): 5 Height (Inches): 7.00 Weight (Pounds): 230 HEENT: anicteric Respiratory/Chest: no respiratory distress Cardiovascular: regular rhythm Abdomen: no organomegaly Microbiology Date/Time Source Procedure Growth Status 06/03/17 14:45 Nasal Nares MRSA Culture - Final Staphylococcus Aureus - Mrsa Complete 06/03/17 14:45 Nasal Nares Influenza Types A,B Antigen (RELL) - Final Complete Laboratory Tests Test 06/05/17 05:55 White Blood Count 7.8 K/UL (4.8-10.8) Red Blood Count 2.14 M/UL (4.70-6.10) L Hemoglobin 5.9 G/DL (14.2-18.0) *L Hematocrit 19.0 % (42.0-52.0) L Mean Corpuscular Volume 89 FL (80-99) Mean Corpuscular Hemoglobin 27.8 PG (27.0-31.0) Mean Corpuscular Hemoglobin Concent 31.3 G/DL (32.0-36.0) L Red Cell Distribution Width 16.5 % (11.6-14.8) H Platelet Count 68 K/UL (150-450) L Mean Platelet Volume 7.4 FL (6.5-10.1) Neutrophils (%) (Auto) % (45.0-75.0) Lymphocytes (%) (Auto) % (20.0-45.0) Monocytes (%) (Auto) % (1.0-10.0) Eosinophils (%) (Auto) % (0.0-3.0) Basophils (%) (Auto) % (0.0-2.0) Differential Total Cells Counted 100 Neutrophils % (Manual) 84 % (45-75) H Lymphocytes % (Manual) 11 % (20-45) L Monocytes % (Manual) 3 % (1-10) Eosinophils % (Manual) 2 % (0-3) Basophils % (Manual) 0 % (0-2) Band Neutrophils 0 % (0-8) Platelet Estimate Decreased L Platelet Morphology Normal Hypochromasia 2+ Anisocytosis 1+ Sodium Level 139 MMOL/L (136-145) Potassium Level 3.8 MMOL/L (3.5-5.1) Chloride Level 100 MMOL/L (98-107) Carbon Dioxide Level 31 MMOL/L (21-32) Anion Gap 8 mmol/L (5-15) Blood Urea Nitrogen 66 mg/dL (7-18) H Creatinine 8.3 MG/DL (0.55-1.30) H Estimat Glomerular Filtration Rate 8.1 mL/min (>60) Glucose Level 116 MG/DL (74-106) H Uric Acid 4.5 MG/DL (2.6-7.2) Calcium Level 7.8 MG/DL (8.5-10.1) L Phosphorus Level 6.0 MG/DL (2.5-4.9) H Magnesium Level 1.8 MG/DL (1.8-2.4) Total Bilirubin 0.7 MG/DL (0.2-1.0) Aspartate Amino Transf (AST/SGOT) 17 U/L (15-37) Alanine Aminotransferase (ALT/SGPT) 31 U/L (12-78) Alkaline Phosphatase 89 U/L (46-116) Troponin I 0.394 ng/mL (0.000-0.056) Pro-B-Type Natriuretic Peptide > 11588 pg/mL (0-125) H Total Protein 5.1 G/DL (6.4-8.2) L Albumin 2.1 G/DL (3.4-5.0) L Globulin 3.0 g/dL Albumin/Globulin Ratio 0.7 (1.0-2.7) L Random Vancomycin Level 8.2 ug/mL TB Test (T-Spot) Pending TB Test Nil Control (T-Spot) Pending TB Test Panel A (T-Spot) Pending TB Test Panel B (T-Spot) Pending TB Test Positive Control (T-Spot) Pending Current Medications Medications (Trade) Dose Ordered Sig/Jose Route PRN Reason Start Time Stop Time Status Last Admin Dose Admin Acetaminophen (Tylenol) 650 mg Q4H PRN ORAL T>100.5 06/03/17 13:30 07/03/17 13:29 06/05/17 00:32 Albuterol/ Ipratropium (Albuterol/ Ipratropium) 3 ml Q4H PRN HHN Shortness of Breath 06/03/17 13:30 06/08/17 13:29 Alprazolam (Xanax) 2 mg BID ORAL 06/04/17 18:00 06/11/17 17:59 06/05/17 10:08 Alprazolam (Xanax) 2 mg DAILYPRN PRN ORAL For Anxiety 06/04/17 12:00 06/11/17 11:59 Amlodipine Besylate (Norvasc) 10 mg DAILY ORAL 06/04/17 09:00 07/04/17 08:59 06/05/17 10:20 Aripiprazole (Abilify) 15 mg DAILY ORAL 06/04/17 09:00 07/04/17 08:59 06/05/17 10:06 Aspirin (ASA) 81 mg DAILY ORAL 06/04/17 09:30 07/04/17 09:29 06/05/17 10:01 Azithromycin 500 mg/Dextrose 275 ml @ 275 mls/hr Q24HRS IV 06/04/17 15:00 06/10/17 15:59 06/04/17 16:07 Bupropion HCl (Wellbutrin) 100 mg BID ORAL 06/03/17 18:00 07/03/17 17:59 06/05/17 10:02 Carisoprodol (Soma) 350 mg BID ORAL 06/04/17 18:00 07/04/17 17:59 06/05/17 10:03 Carisoprodol (Soma) 350 mg Q6H PRN ORAL MUSCLE SPASMS 06/03/17 13:30 07/03/17 13:29 Carvedilol (Coreg) 25 mg EVERY 12 HOURS ORAL 06/04/17 11:30 07/04/17 11:29 06/05/17 10:09 Chlorhexidine Gluconate (Mireille-Hex 2%) 1 applic DAILY@2000 TOPIC 06/05/17 20:00 07/05/17 19:59 Clonidine HCl (Catapres Tab) 0.1 mg Q4H PRN ORAL bp over 160 syst 06/03/17 16:30 07/03/17 16:29 Dextrose (Dextrose 50%) STAT PRN IV Hypoglycemia 06/03/17 13:30 07/03/17 13:29 Docusate Sodium (Colace) 100 mg THREE TIMES A DAY ORAL 06/03/17 18:00 07/03/17 17:59 06/05/17 13:07 Heparin Sodium (Porcine) (Heparin 5000 units/ml) 5,000 units EVERY 12 HOURS SUBQ 06/04/17 09:00 07/04/17 08:59 06/04/17 20:50 Lisinopril (Prinivil) 20 mg BID ORAL 06/04/17 09:00 07/04/17 08:59 06/05/17 10:10 Morphine Sulfate (Morphine Sulfate) 4 mg Q4H PRN IVP BREAKTHROUGH CHEST PAIN 06/04/17 22:00 06/11/17 21:59 06/05/17 13:08 Nitroglycerin (Ntg) 0.4 mg Q5M PRN SL Prn Chest Pain 06/04/17 09:15 07/04/17 09:14 06/05/17 00:34 Nitroglycerin (Ntg) 1 patch Q24H TDERMAL 06/04/17 11:30 07/04/17 11:29 06/05/17 13:07 Ondansetron HCl (Zofran) 4 mg Q6H PRN IVP Nausea & Vomiting 06/03/17 13:30 07/03/17 13:29 Pantoprazole (Protonix) 40 mg DAILY ORAL 06/03/17 17:00 07/03/17 16:59 06/05/17 10:01 Piperacillin Sod/ Tazobactam Sod 2.25 gm/Sodium Chloride 55 ml @ 110 mls/hr Q8HR IVPB 06/04/17 14:00 06/09/17 13:59 06/05/17 07:37 Polyethylene Glycol (Miralax) 17 gm DAILYPRN PRN ORAL Constipation 06/03/17 13:30 07/03/17 13:29 Promethazine HCl/ Codeine (Phenergan with Codeine) 5 ml Q4H PRN ORAL For Cough 06/05/17 08:30 07/05/17 08:29 Sevelamer Carbonate (Renvela) 1,600 mg THREE TIMES A DAY ORAL 06/04/17 13:00 07/04/17 12:59 06/05/17 13:07 Temazepam (Restoril) 15 mg HSPRN PRN ORAL Insomnia 06/03/17 21:00 06/10/17 20:59 06/04/17 21:51 Vancomycin HCl (Vanco rx to dose) 1 ea DAILY PRN MISC Per rx protocol 06/04/17 12:45 07/04/17 12:44 PREET GUAJARDO M.D. Jun 05, 2017 13:50
--- NOTE | 2017-06-05 14:18 | Diagnostic Imaging Report ---
Clinical Indication: Chest pain, evidence of cavitary lung mass on recent chest radiograph Technique: Spiral acquisitions obtained through the chest. No IV contrast utilized, per referring physician request. Multiplanar reconstructions generated. Total dose length product 969.2 mGycm. CTDIvol(s) 27.17 mGy. Dose reduction achieved using automated exposure control Comparison: Reference made to multiple recent chest radiographs. Findings:Dense opacity is seen in the posterior inferior right upper lobe. This measures 7.8 cm AP by 5.3 cm transverse by 6.6 cm craniocaudad. This demonstrates a central cavity which measures approximately 2 x 2 centimeters in diameter. The cavity demonstrates an air-fluid level.. Dense linear opacity is seen at the periphery of the opacity. It is uncertain as to whether this represents calcification or a surgical staple line particular opacities are seen surrounding this lesion. There is atelectasis and consolidation of portions of the right lower lobe, particularly the superior segment. Scattered areas of groundglass opacity are seen throughout the right lung. Areas of atelectasis and consolidation are seen in the left upper lobe, particularly posteriorly. There is considerable volume loss of the left lower lobe, with areas of consolidation and atelectasis posteriorly and inferiorly. There is trace pleural fluid bilaterally. The heart is diffusely markedly enlarged. No pericardial effusion There is a left transsubclavian bifocal pacemaker. Right hilar punctate dense opacities seen in a somewhat linear distribution, could represent manuel calcifications or surgical precious. There is considerable fullness to the right hilar region, particularly the inferior hilum, and mass or adenopathy cannot be excluded, particularly without IV contrast. No definite left hilar mass or adenopathy. There are prominent right paratracheal nodes. A calcified subcentimeter nodule is seen in the lower pole of the left thyroid lobe. No axillary or chest wall mass or adenopathy is demonstrated. There is minimal bilateral gynecomastia The included upper abdominal anatomy demonstrates trace ascites fluid. The liver appears to be enlarged. There are gallstones. There are multiple left renal cysts. There is a 6 mm exophytic right upper pole renal lesion which is too small to characterize. There is considerable edema of the bilateral flank subcutaneous fat Impression: 7.8 x 5.3 x 6.6 cm dense opacity in the posterior inferior right upper lobe with a central cavitation. Review of recent chest radiographs indicates that this was most recently present on 8 05/27/1717 chest radiograph, but is not apparent on an earlier radiograph of 05/24/2017. It should be presumed from the rapid development therefore that this represents a necrotizing pneumonia. Rapidly growing cavitating neoplasm is much less likely given the short interval. Appearance is nonspecific as regards possible causative organism, although the presence of possible hilar lymphadenopathy and possible parenchymal and hilar calcifications does raise the possibility of reactivation tuberculosis Parenchymal consolidation and atelectasis elsewhere, as described.. This could represent part of the same inflammatory process described above. Given massive cardiomegaly, these findings can also be related to pulmonary edema Massive cardiomegaly. Pacemaker Trace bilateral pleural fluid Trace ascites Bilateral flank subcutaneous edema, probably cardiogenic in nature Incidental finding of cholelithiasis Left upper pole renal cysts. Subcentimeter exophytic right renal lesion which is too small to characterize, most likely a benign simple cysts. No further follow-up necessary Calcified left thyroid nodule. No follow-up necessary Minimal bilateral gynecomastia Critical value findings discussed by phone with Dr. Antunez at the time of interpretation The CT scanner at [facility] is accredited by the [employer] and the scans are performed using protocols designed to limit radiation exposure to as low as reasonably achievable to attain images of sufficient resolution adequate for diagnostic evaluation.
--- NOTE | 2017-06-05 14:37 | Diagnostic Imaging Report ---
Indication: Needs long-term IV access Technique: Informed consent obtained prior to commencement of the procedure.. Ultrasound confirms patent compressible right internal jugular vein. Total sterile technique, including sterile probe cover and sterile gel, sterile gloves, hand hygiene, hat, mask, sterile gown, large sterile drape, and preparation with 2% chlorhexidine utilized.Local anesthesia with 1% lidocaine. Under real-time ultrasound guidance, puncture right internal jugular vein using 18-gauge needle, passage 0.035 guidewire, over which was passed serial dilators and then a right transjugular triple lumen 7 [place] [employer] central venous catheter, under fluoroscopic supervision, inserted to 18 cm. Completion stored digital radiograph obtained, demonstrating catheter tip position at cavoatrial junction The patient tolerated the procedure well, without immediate complication. Fluoroscopy time 0.4 minutes Dose Area Product and 10 dGycm2 Impression: Successful placement of right jugular central venous catheter, as described.
--- NOTE | 2017-06-05 15:14 | Nephrology Progress Note ---
Assessment/Plan Problem List: (1) ESRD (end stage renal disease) on dialysis (2) Shortness of breath (3) Anemia Assessment ESRD , missed HD , admitted with high K and pulmonary edema Acute respiratory distress due to volume overload elevated troponin r/o ACS h/o COPD ? exacerbation HTN urgency Cardiomyopathy L AICD anemia of chronic kidney disease Hx of CVA Plan Plan: HD again in am- had e HD 2 days in row Transfuse Phos binders BP meds adjustment Optimize cardiac status per orders Subjective ROS Limited/Unobtainable: No Constitutional: Reports: malaise Objective Objective Last 24 Hour Vital Signs Date Time Temp Pulse Resp B/P (MAP) Pulse Ox O2 Delivery O2 Flow Rate FiO2 06/05/17 13:07 98/63 06/05/17 12:00 72 06/05/17 11:15 77 19 93 06/05/17 10:20 73 107/65 06/05/17 10:10 107/65 06/05/17 10:09 73 107/65 06/05/17 08:56 Bi-pap 06/05/17 08:56 100 Bi-pap 06/05/17 08:00 84 06/05/17 08:00 40 06/05/17 07:29 77 24 100 Facial 40 06/05/17 05:24 76 25 95 Facial 40 06/05/17 04:49 92 06/05/17 04:00 40 06/05/17 03:40 79 27 96 Facial 40 06/05/17 00:34 132/62 06/05/17 00:16 79 06/05/17 00:00 40 06/04/17 23:30 81 28 95 Facial 40 06/04/17 21:30 80 26 96 Facial 40 06/04/17 20:48 80 101/62 06/04/17 20:00 40 06/04/17 19:43 75 06/04/17 19:30 95 Nasal Cannula 2.0 28 06/04/17 19:30 Nasal Cannula 2.0 28 06/04/17 19:30 82 24 95 Facial 40 06/04/17 18:20 122/76 06/04/17 18:18 122/76 06/04/17 17:45 30 06/04/17 17:15 Nasal Cannula 3.0 40 06/04/17 16:00 92 06/04/17 16:00 5.0 Intake and Output 2/28/18 3/1/18 19:00 07:00 Output Total 3700 ml Balance -3700 ml Output Hemodialysis UF 3700 ml # Voids 1 Laboratory Tests 06/05/17 05:55: White Blood Count 7.8, Red Blood Count 2.14L, Hemoglobin 5.9*L, Hematocrit 19.0L , Mean Corpuscular Volume 89, Mean Corpuscular Hemoglobin 27.8, Mean Corpuscular Hemoglobin Concent 31.3L, Red Cell Distribution Width 16.5H, Platelet Count 68L, Mean Platelet Volume 7.4, Neutrophils (%) (Auto) , Lymphocytes (%) (Auto) , Monocytes (%) (Auto) , Eosinophils (%) (Auto) , Basophils (%) (Auto) , Differential Total Cells Counted 100, Neutrophils % ( Manual) 84H, Lymphocytes % (Manual) 11L, Monocytes % (Manual) 3, Eosinophils % ( Manual) 2, Basophils % (Manual) 0, Band Neutrophils 0, Platelet Estimate DecreasedL, Platelet Morphology Normal, Hypochromasia 2+, Anisocytosis 1+, Sodium Level 139, Potassium Level 3.8, Chloride Level 100, Carbon Dioxide Level 31, Anion Gap 8, Blood Urea Nitrogen 66H, Creatinine 8.3H, Estimat Glomerular Filtration Rate 8.1, Glucose Level 116H, Uric Acid 4.5, Calcium Level 7.8L, Phosphorus Level 6.0H, Magnesium Level 1.8, Total Bilirubin 0.7, Aspartate Amino Transf (AST/SGOT) 17, Alanine Aminotransferase (ALT/SGPT) 31, Alkaline Phosphatase 89, Troponin I 0.394H, Pro-B-Type Natriuretic Peptide > 16264A, Total Protein 5.1L, Albumin 2.1L, Globulin 3.0, Albumin/Globulin Ratio 0.7L, Random Vancomycin Level 8.2, TB Test (T-Spot) [Pending], TB Test Nil Control (T- Spot) [Pending], TB Test Panel A (T-Spot) [Pending], TB Test Panel B (T-Spot) [ Pending], TB Test Positive Control (T-Spot) [Pending] Height (Feet): 5 Height (Inches): 7.00 Weight (Pounds): 230 General Appearance: no apparent distress Respiratory/Chest: decreased breath sounds Abdomen: soft FOULADIAN,LIAM Jun 05, 2017 15:14
[2017-06-05 16:00] VITALS: BP 104/67
[2017-06-05] MEDS: Azithromycin 500 MG in D5W 275 ML IV SCH (16:03)
--- NOTE | 2017-06-05 16:43 | Internal Med Progress Note ---
Subjective Date of Service: Jun 05, 2017 Physician Name Pires,Zoey Attending Physician Chaitanya Weinstein MD Current Medications Medications (Trade) Dose Ordered Sig/Jose Route PRN Reason Start Time Stop Time Status Last Admin Dose Admin Acetaminophen (Tylenol) 650 mg Q4H PRN ORAL T>100.5 06/03/17 13:30 07/03/17 13:29 06/05/17 00:32 Albuterol/ Ipratropium (Albuterol/ Ipratropium) 3 ml Q4H PRN HHN Shortness of Breath 06/03/17 13:30 06/08/17 13:29 Alprazolam (Xanax) 2 mg BID ORAL 06/04/17 18:00 06/11/17 17:59 06/05/17 10:08 Alprazolam (Xanax) 2 mg DAILYPRN PRN ORAL For Anxiety 06/04/17 12:00 06/11/17 11:59 Amlodipine Besylate (Norvasc) 10 mg DAILY ORAL 06/04/17 09:00 07/04/17 08:59 06/05/17 10:20 Aripiprazole (Abilify) 15 mg DAILY ORAL 06/04/17 09:00 07/04/17 08:59 06/05/17 10:06 Aspirin (ASA) 81 mg DAILY ORAL 06/04/17 09:30 07/04/17 09:29 06/05/17 10:01 Azithromycin 500 mg/Dextrose 275 ml @ 275 mls/hr Q24HRS IV 06/04/17 15:00 06/10/17 15:59 06/05/17 16:03 Bupropion HCl (Wellbutrin) 100 mg BID ORAL 06/03/17 18:00 07/03/17 17:59 06/05/17 10:02 Carisoprodol (Soma) 350 mg BID ORAL 06/04/17 18:00 07/04/17 17:59 06/05/17 10:03 Carisoprodol (Soma) 350 mg Q6H PRN ORAL MUSCLE SPASMS 06/03/17 13:30 07/03/17 13:29 Carvedilol (Coreg) 25 mg EVERY 12 HOURS ORAL 06/04/17 11:30 07/04/17 11:29 06/05/17 10:09 Chlorhexidine Gluconate (Mireille-Hex 2%) 1 applic DAILY@2000 TOPIC 06/05/17 20:00 07/05/17 19:59 Clonidine HCl (Catapres Tab) 0.1 mg Q4H PRN ORAL bp over 160 syst 06/03/17 16:30 07/03/17 16:29 Dextrose (Dextrose 50%) STAT PRN IV Hypoglycemia 06/03/17 13:30 07/03/17 13:29 Docusate Sodium (Colace) 100 mg THREE TIMES A DAY ORAL 06/03/17 18:00 07/03/17 17:59 06/05/17 13:07 Heparin Sodium (Porcine) (Heparin 5000 units/ml) 5,000 units EVERY 12 HOURS SUBQ 06/04/17 09:00 07/04/17 08:59 06/04/17 20:50 Lisinopril (Prinivil) 20 mg BID ORAL 06/04/17 09:00 07/04/17 08:59 06/05/17 10:10 Morphine Sulfate (Morphine Sulfate) 4 mg Q4H PRN IVP BREAKTHROUGH CHEST PAIN 06/04/17 22:00 06/11/17 21:59 06/05/17 13:08 Nitroglycerin (Ntg) 0.4 mg Q5M PRN SL Prn Chest Pain 06/04/17 09:15 07/04/17 09:14 06/05/17 00:34 Nitroglycerin (Ntg) 1 patch Q24H TDERMAL 06/04/17 11:30 07/04/17 11:29 06/05/17 13:07 Ondansetron HCl (Zofran) 4 mg Q6H PRN IVP Nausea & Vomiting 06/03/17 13:30 07/03/17 13:29 Pantoprazole (Protonix) 40 mg DAILY ORAL 06/03/17 17:00 07/03/17 16:59 06/05/17 10:01 Piperacillin Sod/ Tazobactam Sod 2.25 gm/Sodium Chloride 55 ml @ 110 mls/hr Q8HR IVPB 06/04/17 14:00 06/09/17 13:59 06/05/17 14:51 Polyethylene Glycol (Miralax) 17 gm DAILYPRN PRN ORAL Constipation 06/03/17 13:30 07/03/17 13:29 Promethazine HCl/ Codeine (Phenergan with Codeine) 5 ml Q4H PRN ORAL For Cough 06/05/17 08:30 07/05/17 08:29 Sevelamer Carbonate (Renvela) 1,600 mg THREE TIMES A DAY ORAL 06/04/17 13:00 07/04/17 12:59 06/05/17 13:07 Temazepam (Restoril) 15 mg HSPRN PRN ORAL Insomnia 06/03/17 21:00 06/10/17 20:59 06/04/17 21:51 Vancomycin HCl (Vanco rx to dose) 1 ea DAILY PRN MISC Per rx protocol 06/04/17 12:45 07/04/17 12:44 Allergies: Coded Allergies: No Known Allergies (Unverified , 10/24/15) ROS Limited/Unobtainable: Yes Subjective 57 YO M admitted with chest pain and shortness of breath. Now pneumonia and candelaria heart failure. On BIPAP. Cover for Int Med-Dr Weinstein. HIMANSHU Objective Last Vital Signs Date Time Temp Pulse Resp B/P (MAP) Pulse Ox O2 Delivery O2 Flow Rate FiO2 06/05/17 15:36 77 24 100 Facial 100 06/05/17 13:07 98/63 06/04/17 19:30 2.0 06/04/17 00:00 98.5 98.5 Laboratory Tests Test 06/05/17 05:55 06/05/17 15:00 White Blood Count 7.8 K/UL (4.8-10.8) Red Blood Count 2.14 M/UL (4.70-6.10) L Hemoglobin 5.9 G/DL (14.2-18.0) *L Hematocrit 19.0 % (42.0-52.0) L Mean Corpuscular Volume 89 FL (80-99) Mean Corpuscular Hemoglobin 27.8 PG (27.0-31.0) Mean Corpuscular Hemoglobin Concent 31.3 G/DL (32.0-36.0) L Red Cell Distribution Width 16.5 % (11.6-14.8) H Platelet Count 68 K/UL (150-450) L Mean Platelet Volume 7.4 FL (6.5-10.1) Neutrophils (%) (Auto) % (45.0-75.0) Lymphocytes (%) (Auto) % (20.0-45.0) Monocytes (%) (Auto) % (1.0-10.0) Eosinophils (%) (Auto) % (0.0-3.0) Basophils (%) (Auto) % (0.0-2.0) Differential Total Cells Counted 100 Neutrophils % (Manual) 84 % (45-75) H Lymphocytes % (Manual) 11 % (20-45) L Monocytes % (Manual) 3 % (1-10) Eosinophils % (Manual) 2 % (0-3) Basophils % (Manual) 0 % (0-2) Band Neutrophils 0 % (0-8) Platelet Estimate Decreased L Platelet Morphology Normal Hypochromasia 2+ Anisocytosis 1+ Sodium Level 139 MMOL/L (136-145) Potassium Level 3.8 MMOL/L (3.5-5.1) Chloride Level 100 MMOL/L (98-107) Carbon Dioxide Level 31 MMOL/L (21-32) Anion Gap 8 mmol/L (5-15) Blood Urea Nitrogen 66 mg/dL (7-18) H Creatinine 8.3 MG/DL (0.55-1.30) H Estimat Glomerular Filtration Rate 8.1 mL/min (>60) Glucose Level 116 MG/DL (74-106) H Uric Acid 4.5 MG/DL (2.6-7.2) Calcium Level 7.8 MG/DL (8.5-10.1) L Phosphorus Level 6.0 MG/DL (2.5-4.9) H Magnesium Level 1.8 MG/DL (1.8-2.4) Total Bilirubin 0.7 MG/DL (0.2-1.0) Aspartate Amino Transf (AST/SGOT) 17 U/L (15-37) Alanine Aminotransferase (ALT/SGPT) 31 U/L (12-78) Alkaline Phosphatase 89 U/L (46-116) Troponin I 0.394 ng/mL (0.000-0.056) Pending Pro-B-Type Natriuretic Peptide > 25108 pg/mL (0-125) H Total Protein 5.1 G/DL (6.4-8.2) L Albumin 2.1 G/DL (3.4-5.0) L Globulin 3.0 g/dL Albumin/Globulin Ratio 0.7 (1.0-2.7) L Random Vancomycin Level 8.2 ug/mL TB Test (T-Spot) Pending TB Test Nil Control (T-Spot) Pending TB Test Panel A (T-Spot) Pending TB Test Panel B (T-Spot) Pending TB Test Positive Control (T-Spot) Pending C-Reactive Protein, Quantitative Pending Microbiology Date/Time Source Procedure Growth Status 06/03/17 14:45 Nasal Nares MRSA Culture - Final Staphylococcus Aureus - Mrsa Complete 06/03/17 14:45 Nasal Nares Influenza Types A,B Antigen (RELL) - Final Complete Intake and Output 06/04/17 06/05/17 19:00 07:00 Output Total 3700 ml Balance -3700 ml Output Hemodialysis UF 3700 ml # Voids 1 Objective General Appearance: WD/WN, alert, moderate distress EENT: PERRL/EOMI, normal ENT inspection Neck: non-tender, normal alignment, supple, normal inspection Cardiovascular: normal peripheral pulses, normal rate, regular rhythm, no gallop/murmur, no JVD Respiratory/Chest: respiratory distress, crackles/rales, rhonchi - bilaterally , expiratory wheezing Abdomen: normal bowel sounds, non tender, soft, no organomegaly, no mass Extremities: normal range of motion Neurologic: specimen processor 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 ?volume overload? Currently on BIPAP. See pulmonay note. (2) Pleuritic chest pain (3) Hemoptysis Assessment & Plan: Due to pneumonia (4) Pneumonia Assessment & Plan: RUL and cavitary. Concerning for TB. Await AFB cultures- see ID consult. (5) Shortness of breath (6) ESRD (end stage renal disease) on dialysis Assessment & Plan: See nephrology note. Hemodialysis today (7) Hyperkalemia Assessment & Plan: Due to renal failure. Hemodialysis today (8) COPD (chronic obstructive pulmonary disease) (9) HTN (hypertension) Assessment & Plan: Continue coreg and lisinopril. (10) CHF (congestive heart failure) (11) Elevated troponin Assessment & Plan: ?due to renal failure? See cardiology note. Status: not improved ZOEY PIRES Jun 05, 2017 16:43
--- NOTE | 2017-06-05 18:33 | Cardiology Progress Note ---
Assessment/Plan Assessment/Plan plueritic chest pain neg recent sig perfusion abn; systolic dysfunction on mild degree involving the septum cavitating lung lesion esrd htn anemia icd hx tropn min abn related to esrd likely as no peak no jennifer venou duplex pending may need ct of chest echo reviewed swma in septum (possible) as tech difficult study ef 45% dialysis per dr grimaldo now in isolation pain meds as per dr lemos Subjective Cardiovascular: Denies: chest pain - better , lightheadedness Respiratory: Reports: cough, shortness of breath Gastrointestinal/Abdominal: Denies: abdominal pain Genitourinary: Denies: burning Objective Last 24 Hour Vital Signs Date Time Temp Pulse Resp B/P (MAP) Pulse Ox O2 Delivery O2 Flow Rate FiO2 06/05/17 18:02 104/67 06/05/17 17:40 86 06/05/17 16:00 40 06/05/17 15:36 77 24 100 Facial 100 06/05/17 13:07 98/63 06/05/17 12:30 97.3 72 22 98/63 Venturi Mask 15.0 97.3 06/05/17 12:00 72 06/05/17 12:00 40 06/05/17 11:15 77 19 93 06/05/17 10:20 73 107/65 06/05/17 10:10 107/65 06/05/17 10:09 73 107/65 06/05/17 08:56 Bi-pap 06/05/17 08:56 100 Bi-pap 06/05/17 08:00 84 06/05/17 08:00 40 06/05/17 08:00 97.3 73 22 107/65 Bi-pap 97.3 06/05/17 07:29 77 24 100 Facial 40 06/05/17 05:24 76 25 95 Facial 40 06/05/17 04:49 92 06/05/17 04:00 40 06/05/17 03:40 79 27 96 Facial 40 06/05/17 00:34 132/62 06/05/17 00:16 79 06/05/17 00:00 40 06/04/17 23:30 81 28 95 Facial 40 06/04/17 21:30 80 26 96 Facial 40 06/04/17 20:48 80 101/62 06/04/17 20:00 40 06/04/17 19:43 75 06/04/17 19:30 95 Nasal Cannula 2.0 28 06/04/17 19:30 Nasal Cannula 2.0 28 06/04/17 19:30 82 24 95 Facial 40 General Appearance: alert Neck: supple Cardiovascular: normal rate Respiratory/Chest: expiratory wheezing Abdomen: normal bowel sounds, non tender, soft Extremities: no swelling Intake and Output 06/04/17 06/05/17 19:00 07:00 Output Total 3700 ml Balance -3700 ml Output Hemodialysis UF 3700 ml # Voids 1 Laboratory Tests Test 06/05/17 05:55 06/05/17 15:00 White Blood Count 7.8 K/UL (4.8-10.8) Red Blood Count 2.14 M/UL (4.70-6.10) L Hemoglobin 5.9 G/DL (14.2-18.0) *L Hematocrit 19.0 % (42.0-52.0) L Mean Corpuscular Volume 89 FL (80-99) Mean Corpuscular Hemoglobin 27.8 PG (27.0-31.0) Mean Corpuscular Hemoglobin Concent 31.3 G/DL (32.0-36.0) L Red Cell Distribution Width 16.5 % (11.6-14.8) H Platelet Count 68 K/UL (150-450) L Mean Platelet Volume 7.4 FL (6.5-10.1) Neutrophils (%) (Auto) % (45.0-75.0) Lymphocytes (%) (Auto) % (20.0-45.0) Monocytes (%) (Auto) % (1.0-10.0) Eosinophils (%) (Auto) % (0.0-3.0) Basophils (%) (Auto) % (0.0-2.0) Differential Total Cells Counted 100 Neutrophils % (Manual) 84 % (45-75) H Lymphocytes % (Manual) 11 % (20-45) L Monocytes % (Manual) 3 % (1-10) Eosinophils % (Manual) 2 % (0-3) Basophils % (Manual) 0 % (0-2) Band Neutrophils 0 % (0-8) Platelet Estimate Decreased L Platelet Morphology Normal Hypochromasia 2+ Anisocytosis 1+ Sodium Level 139 MMOL/L (136-145) Potassium Level 3.8 MMOL/L (3.5-5.1) Chloride Level 100 MMOL/L (98-107) Carbon Dioxide Level 31 MMOL/L (21-32) Anion Gap 8 mmol/L (5-15) Blood Urea Nitrogen 66 mg/dL (7-18) H Creatinine 8.3 MG/DL (0.55-1.30) H Estimat Glomerular Filtration Rate 8.1 mL/min (>60) Glucose Level 116 MG/DL (74-106) H Uric Acid 4.5 MG/DL (2.6-7.2) Calcium Level 7.8 MG/DL (8.5-10.1) L Phosphorus Level 6.0 MG/DL (2.5-4.9) H Magnesium Level 1.8 MG/DL (1.8-2.4) Total Bilirubin 0.7 MG/DL (0.2-1.0) Aspartate Amino Transf (AST/SGOT) 17 U/L (15-37) Alanine Aminotransferase (ALT/SGPT) 31 U/L (12-78) Alkaline Phosphatase 89 U/L (46-116) Troponin I 0.394 ng/mL (0.000-0.056) 0.312 ng/mL (0.000-0.056) Pro-B-Type Natriuretic Peptide > 74996 pg/mL (0-125) H Total Protein 5.1 G/DL (6.4-8.2) L Albumin 2.1 G/DL (3.4-5.0) L Globulin 3.0 g/dL Albumin/Globulin Ratio 0.7 (1.0-2.7) L Random Vancomycin Level 8.2 ug/mL TB Test (T-Spot) Pending TB Test Nil Control (T-Spot) Pending TB Test Panel A (T-Spot) Pending TB Test Panel B (T-Spot) Pending TB Test Positive Control (T-Spot) Pending C-Reactive Protein, Quantitative 21.3 mg/dL (0.00-0.90) H Microbiology Date/Time Source Procedure Growth Status 06/03/17 14:45 Nasal Nares MRSA Culture - Final Staphylococcus Aureus - Mrsa Complete 06/03/17 14:45 Nasal Nares Influenza Types A,B Antigen (RELL) - Final Complete PRECIOUS GARCIA Jun 05, 2017 18:33
[2017-06-05 20:00] VITALS: BP 109/70
[2017-06-05] MEDS: Dyna-Hex 2% Top Sol 2oz TOPIC SCH (21:11)
[2017-06-06] VITALS (8 sets, daily range): BP systolic 109–126; BP diastolic 63–80
[2017-06-06] MEDS: Morphine Sulfate 4mg/ml Inj IVP PRN (04:26)
[2017-06-06 06:02] LABS: ALANINE AMINOTRANSFERASE 28 U/L (12-78); ALBUMIN 2.3 G/DL (3.4-5.0); ALBUMIN/GLOBULIN RATIO 0.7 (1.0-2.7); ALKALINE PHOSPHATASE 92 U/L (46-116); ANION GAP 10 mmol/L (5-15); ASPARTATE AMINO TRANSFERASE 15 U/L (15-37); BILIRUBIN,TOTAL 0.7 MG/DL (0.2-1.0); BLOOD UREA NITROGEN 74 mg/dL (7-18); CALCIUM 8.2 MG/DL (8.5-10.1); CARBON DIOXIDE 30 MMOL/L (21-32); CHLORIDE 100 MMOL/L (98-107); GAMMA GLUTAMYL TRANSPEPTIDASE 118 U/L (5-85); PHOSPHORUS 6.8 MG/DL (2.5-4.9); POTASSIUM 4.3 MMOL/L (3.5-5.1); SODIUM 140 MMOL/L (136-145)
[2017-06-06] MEDS: Piperacillin/Tazobactam 2.25 GM in NS 55 ML IVPB SCH ×2 (06:03→18:25)
[2017-06-06 06:05] LABS: HEMATOCRIT 22.2 % (42.0-52.0); HEMOGLOBIN 7.2 G/DL (14.2-18.0); MEAN CORPUSCULAR VOLUME 90 FL (80-99); PLATELET COUNT 71 K/UL (150-450); RED BLOOD COUNT 2.46 M/UL (4.70-6.10); RED CELL DISTRIBUTION WIDTH 16.4 % (11.6-14.8); WHITE BLOOD COUNT 7.6 K/UL (4.8-10.8)
[2017-06-06] MEDS: Heparin 5000 units/ml inj SUBQ SCH ×2 (09:00→21:00)
[2017-06-06] MEDS: Lisinopril 20mg tab ORAL SCH ×2 (09:00→18:00)
[2017-06-06] MEDS: Carvedilol 25mg Tab ORAL SCH ×2 (09:00→21:11)
[2017-06-06] MEDS: Aspirin Baby 81mg ORAL SCH (10:01)
[2017-06-06] MEDS: Docusate 100mg cap ORAL SCH ×3 (10:01→18:31)
[2017-06-06] MEDS: ALPRAZolam 0.5mg tab ORAL SCH ×2 (10:05→18:34)
--- NOTE | 2017-06-06 11:45 | Pulmonology Progress Note ---
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 check sputum sputum induction continue abx hold heparin for low PLT Subjective ROS Limited/Unobtainable: No Constitutional: Reports: no symptoms HEENT: Repors: no symptoms Respiratory: Reports: no symptoms Allergies: Coded Allergies: No Known Allergies (Unverified , 10/24/15) Objective Last 24 Hour Vital Signs Date Time Temp Pulse Resp B/P (MAP) Pulse Ox O2 Delivery O2 Flow Rate FiO2 06/06/17 08:00 97.6 79 17 126/63 95 97.6 06/06/17 04:26 99.6 06/06/17 04:00 98.6 74 26 113/80 94 Venturi Mask 50 98.6 06/06/17 04:00 50 06/06/17 04:00 79 06/06/17 00:23 99.6 06/06/17 00:00 99.0 95 32 114/66 96 Venturi Mask 50 99.0 06/06/17 00:00 77 06/06/17 00:00 50 06/05/17 23:24 100.0 06/05/17 23:09 95 Venturi Mask 10.0 45 06/05/17 23:09 Venturi Mask 10.0 45 06/05/17 22:57 74 18 98 Full Face 80 06/05/17 21:11 77 109/70 06/05/17 21:10 97.3 06/05/17 20:55 102 24 97 Full Face 100 06/05/17 20:00 40 06/05/17 20:00 98.2 80 25 109/70 100 Bi-pap 40 98.2 06/05/17 19:28 Bi-pap 100 06/05/17 19:28 94 Bi-pap 100 06/05/17 19:28 89 25 94 Full Face 100 06/05/17 18:59 75 06/05/17 18:02 104/67 06/05/17 17:40 86 06/05/17 16:00 40 06/05/17 16:00 75 06/05/17 16:00 97.3 73 16 104/67 Bi-pap 40 97.3 06/05/17 15:36 77 24 100 Facial 100 06/05/17 13:07 98/63 06/05/17 12:30 97.3 72 22 98/63 Venturi Mask 15.0 97.3 06/05/17 12:00 72 06/05/17 12:00 40 Intake and Output 06/05/17 06/06/17 19:00 07:00 Intake Total 500 ml 630 ml Balance 500 ml 630 ml Intake Oral 500 ml 300 ml IV Total 330 ml # Voids 1 1 General Appearance: cachetic HEENT: normocephalic, atraumatic Respiratory/Chest: chest wall non-tender, lungs clear Cardiovascular: normal peripheral pulses, normal rate Abdomen: normal bowel sounds, soft, non tender Genitourinary: normal external genitalia Extremities: no cyanosis Skin: no rash Neurologic/Psychiatric: penal officer 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 Lymphatic: no neck adenopathy Microbiology Date/Time Source Procedure Growth Status 06/04/17 13:40 Blood Blood Culture - Preliminary NO GROWTH AFTER 24 HOURS Resulted 06/04/17 13:30 Blood Blood Culture - Preliminary NO GROWTH AFTER 24 HOURS Resulted 06/05/17 02:55 Sputum Expectorated Gram Stain - Final Resulted 06/05/17 02:55 Sputum Expectorated Sputum Culture Pending Resulted 06/03/17 14:45 Nasal Nares MRSA Culture - Final Staphylococcus Aureus - Mrsa Complete 06/03/17 14:45 Nasal Nares Influenza Types A,B Antigen (RELL) - Final Complete Laboratory Tests 06/05/17 15:00: Troponin I 0.312H, C-Reactive Protein, Quantitative 21.3H 06/05/17 15:30: M. tuberculosis Complex DNA (PCR) [Pending] 06/06/17 04:30: C-Reactive Protein, Quantitative 15.5H, White Blood Count 7.6, Red Blood Count 2.46L, Hemoglobin 7.2L, Hematocrit 22.2L, Mean Corpuscular Volume 90, Mean Corpuscular Hemoglobin 29.2, Mean Corpuscular Hemoglobin Concent 32.4, Red Cell Distribution Width 16.4H, Platelet Count 71L, Mean Platelet Volume 9.1, Neutrophils (%) (Auto) , Lymphocytes (%) (Auto) , Monocytes (%) (Auto) , Eosinophils (%) (Auto) , Basophils (%) (Auto) , Neutrophils % (Manual) [Pending] , Lymphocytes % (Manual) [Pending], Platelet Estimate [Pending], Platelet Morphology [Pending], Sodium Level 140, Potassium Level 4.3, Chloride Level 100 , Carbon Dioxide Level 30, Anion Gap 10, Blood Urea Nitrogen 74H, Creatinine 10.0H, Estimat Glomerular Filtration Rate 6.5, Glucose Level 104, Uric Acid 5.5 , Calcium Level 8.2L, Phosphorus Level 6.8H, Magnesium Level 1.9, Total Bilirubin 0.7, Gamma Glutamyl Transpeptidase 118H, Aspartate Amino Transf (AST/ SGOT) 15, Alanine Aminotransferase (ALT/SGPT) 28, Alkaline Phosphatase 92, Pro-B -Type Natriuretic Peptide [id number], Total Protein 5.8L, Albumin 2.3L, Globulin 3.5, Albumin/Globulin Ratio 0.7L, HIV (1&2) Antibody Rapid [Pending] 06/06/17 11:04: Arterial Blood pH 7.320L, Arterial Blood Partial Pressure CO2 51.8H, Arterial Blood Partial Pressure O2 120.0H, Arterial Blood HCO3 26.3H, Arterial Blood Oxygen Saturation 96.8, Arterial Blood Base Excess 0.1, Juan A Test Positive Current Medications Medications (Trade) Dose Ordered Sig/Jose Route PRN Reason Start Time Stop Time Status Last Admin Dose Admin Acetaminophen (Tylenol) 650 mg Q4H PRN ORAL T>100.5 06/03/17 13:30 07/03/17 13:29 06/05/17 23:24 Albuterol/ Ipratropium (Albuterol/ Ipratropium) 3 ml Q4H PRN HHN Shortness of Breath 06/03/17 13:30 06/08/17 13:29 Alprazolam (Xanax) 2 mg BID ORAL 06/04/17 18:00 06/11/17 17:59 06/06/17 10:05 Alprazolam (Xanax) 2 mg DAILYPRN PRN ORAL For Anxiety 06/04/17 12:00 06/11/17 11:59 Amlodipine Besylate (Norvasc) 10 mg DAILY ORAL 06/04/17 09:00 07/04/17 08:59 06/05/17 10:20 Aripiprazole (Abilify) 15 mg DAILY ORAL 06/04/17 09:00 07/04/17 08:59 06/05/17 10:06 Aspirin (ASA) 81 mg DAILY ORAL 06/04/17 09:30 07/04/17 09:29 06/06/17 10:01 Azithromycin 500 mg/Dextrose 275 ml @ 275 mls/hr Q24HRS IV 06/04/17 15:00 06/10/17 15:59 06/05/17 16:03 Bupropion HCl (Wellbutrin) 100 mg BID ORAL 06/03/17 18:00 07/03/17 17:59 06/06/17 10:01 Carisoprodol (Soma) 350 mg BID ORAL 06/04/17 18:00 07/04/17 17:59 06/06/17 10:03 Carisoprodol (Soma) 350 mg Q6H PRN ORAL MUSCLE SPASMS 06/03/17 13:30 07/03/17 13:29 Carvedilol (Coreg) 25 mg EVERY 12 HOURS ORAL 06/04/17 11:30 07/04/17 11:29 06/05/17 21:11 Chlorhexidine Gluconate (Mireille-Hex 2%) 1 applic DAILY@2000 TOPIC 06/05/17 20:00 07/05/17 19:59 06/05/17 21:11 Clonidine HCl (Catapres Tab) 0.1 mg Q4H PRN ORAL bp over 160 syst 06/03/17 16:30 07/03/17 16:29 Dextrose (Dextrose 50%) STAT PRN IV Hypoglycemia 06/03/17 13:30 07/03/17 13:29 Docusate Sodium (Colace) 100 mg THREE TIMES A DAY ORAL 06/03/17 18:00 07/03/17 17:59 06/06/17 10:01 Heparin Sodium (Porcine) (Heparin 5000 units/ml) 5,000 units EVERY 12 HOURS SUBQ 06/04/17 09:00 07/04/17 08:59 06/04/17 20:50 Lisinopril (Prinivil) 20 mg BID ORAL 06/04/17 09:00 07/04/17 08:59 06/05/17 18:02 Morphine Sulfate (Morphine Sulfate) 4 mg Q4H PRN IVP BREAKTHROUGH CHEST PAIN 06/04/17 22:00 06/11/17 21:59 06/06/17 04:26 Nitroglycerin (Ntg) 0.4 mg Q5M PRN SL Prn Chest Pain 06/04/17 09:15 07/04/17 09:14 06/05/17 00:34 Nitroglycerin (Ntg) 1 patch Q24H TDERMAL 06/04/17 11:30 07/04/17 11:29 06/05/17 13:07 Ondansetron HCl (Zofran) 4 mg Q6H PRN IVP Nausea & Vomiting 06/03/17 13:30 07/03/17 13:29 Pantoprazole (Protonix) 40 mg DAILY ORAL 06/03/17 17:00 07/03/17 16:59 06/06/17 10:00 Piperacillin Sod/ Tazobactam Sod 2.25 gm/Sodium Chloride 55 ml @ 110 mls/hr Q8HR IVPB 06/04/17 14:00 06/09/17 13:59 06/06/17 06:03 Polyethylene Glycol (Miralax) 17 gm DAILYPRN PRN ORAL Constipation 06/03/17 13:30 07/03/17 13:29 Promethazine HCl/ Codeine (Phenergan with Codeine) 5 ml Q4H PRN ORAL For Cough 06/05/17 08:30 07/05/17 08:29 Sevelamer Carbonate (Renvela) 1,600 mg THREE TIMES A DAY ORAL 06/04/17 13:00 07/04/17 12:59 06/06/17 10:00 Temazepam (Restoril) 15 mg HSPRN PRN ORAL Insomnia 06/03/17 21:00 06/10/17 20:59 06/05/17 21:10 Vancomycin HCl (Vanco rx to dose) 1 ea DAILY PRN MISC Per rx protocol 06/04/17 12:45 07/04/17 12:44 MAICO SYED Jun 06, 2017 11:45
[2017-06-06] MEDS: Nitroglycerin Patch 0.4mg TDERMAL SCH (12:32)
--- NOTE | 2017-06-06 13:22 | Diagnostic Imaging Report ---
Indication: Dyspnea Comparison: 06/04/2017 A single view chest radiograph was obtained. Findings: New right jugular line has been placed and is in good position with the tip projected over the right atrium. No pneumothorax seen. Increasing interstitial edema and prominent pulmonary vascularity demonstrated. Hazy opacity in the right midlung could be airspace parenchymal disease versus fluid in the minor fissure. Pacemaker again noted. The heart is enlarged. IMPRESSION: Worsening pulmonary edema. Right jugular line in good position. No pneumothorax
--- NOTE | 2017-06-06 15:54 | Nephrology Progress Note ---
Assessment/Plan Problem List: (1) ESRD (end stage renal disease) on dialysis (2) Shortness of breath (3) Anemia Assessment ESRD , missed HD , admitted with high K and pulmonary edema Acute respiratory distress due to volume overload elevated troponin r/o ACS h/o COPD ? exacerbation HTN urgency Cardiomyopathy L AICD anemia of chronic kidney disease Hx of CVA Plan Plan: HD 3/2 Transfused Phos binders BP meds adjustment Optimize cardiac status per orders Subjective ROS Limited/Unobtainable: No Objective Objective Last 24 Hour Vital Signs Date Time Temp Pulse Resp B/P (MAP) Pulse Ox O2 Delivery O2 Flow Rate FiO2 06/06/17 12:32 111/71 06/06/17 12:00 84 06/06/17 12:00 45 06/06/17 12:00 98.4 86 21 83 Bi-pap 98.4 06/06/17 11:30 45 06/06/17 11:02 60 06/06/17 10:45 86 25 100 Full Face 80 06/06/17 08:30 60 06/06/17 08:00 97.6 79 17 126/63 95 97.6 06/06/17 08:00 5.0 06/06/17 07:42 Venturi Mask 10.0 45 06/06/17 07:41 94 Venturi Mask 10.0 45 06/06/17 07:30 84 06/06/17 04:26 99.6 06/06/17 04:00 98.6 74 26 113/80 94 Venturi Mask 50 98.6 06/06/17 04:00 50 06/06/17 04:00 79 06/06/17 00:23 99.6 06/06/17 00:00 99.0 95 32 114/66 96 Venturi Mask 50 99.0 06/06/17 00:00 77 06/06/17 00:00 50 06/05/17 23:24 100.0 06/05/17 23:09 95 Venturi Mask 10.0 45 06/05/17 23:09 Venturi Mask 10.0 45 06/05/17 22:57 74 18 98 Full Face 80 06/05/17 21:11 77 109/70 06/05/17 21:10 97.3 06/05/17 20:55 102 24 97 Full Face 100 06/05/17 20:00 40 06/05/17 20:00 98.2 80 25 109/70 100 Bi-pap 40 98.2 06/05/17 19:28 Bi-pap 100 06/05/17 19:28 94 Bi-pap 100 06/05/17 19:28 89 25 94 Full Face 100 06/05/17 18:59 75 06/05/17 18:02 104/67 06/05/17 17:40 86 06/05/17 16:00 40 06/05/17 16:00 75 06/05/17 16:00 97.3 73 16 104/67 Bi-pap 40 97.3 Intake and Output 06/05/17 06/06/17 19:00 07:00 Intake Total 500 ml 630 ml Balance 500 ml 630 ml Intake Oral 500 ml 300 ml IV Total 330 ml # Voids 1 1 Laboratory Tests 06/06/17 04:30: White Blood Count 7.6, Red Blood Count 2.46L, Hemoglobin 7.2L, Hematocrit 22.2L , Mean Corpuscular Volume 90, Mean Corpuscular Hemoglobin 29.2, Mean Corpuscular Hemoglobin Concent 32.4, Red Cell Distribution Width 16.4H, Platelet Count 71L, Mean Platelet Volume 9.1, Neutrophils (%) (Auto) , Lymphocytes (%) (Auto) , Monocytes (%) (Auto) , Eosinophils (%) (Auto) , Basophils (%) (Auto) , Differential Total Cells Counted 100, Neutrophils % ( Manual) 78H, Lymphocytes % (Manual) 9L, Monocytes % (Manual) 5, Eosinophils % ( Manual) 8H, Basophils % (Manual) 0, Band Neutrophils 0, Platelet Estimate DecreasedL, Platelet Morphology Normal, Hypochromasia 1+, Anisocytosis 1+, Sodium Level 140, Potassium Level 4.3, Chloride Level 100, Carbon Dioxide Level 30, Anion Gap 10, Blood Urea Nitrogen 74H, Creatinine 10.0H, Estimat Glomerular Filtration Rate 6.5, Glucose Level 104, Uric Acid 5.5, Calcium Level 8.2L, Phosphorus Level 6.8H, Magnesium Level 1.9, Total Bilirubin 0.7, Gamma Glutamyl Transpeptidase 118H, Aspartate Amino Transf (AST/SGOT) 15, Alanine Aminotransferase (ALT/SGPT) 28, Alkaline Phosphatase 92, C-Reactive Protein, Quantitative 15.5H, Pro-B-Type Natriuretic Peptide [id number], Total Protein 5.8L, Albumin 2.3L, Globulin 3.5, Albumin/Globulin Ratio 0.7L, HIV (1&2) Antibody Rapid Negative 06/06/17 11:04: Arterial Blood pH 7.320L, Arterial Blood Partial Pressure CO2 51.8H, Arterial Blood Partial Pressure O2 120.0H, Arterial Blood HCO3 26.3H, Arterial Blood Oxygen Saturation 96.8, Arterial Blood Base Excess 0.1, Juan A Test Positive Height (Feet): 5 Height (Inches): 7.00 Weight (Pounds): 230 General Appearance: no apparent distress Respiratory/Chest: decreased breath sounds Abdomen: distended LIAM MONTELONGO Jun 06, 2017 15:54
--- NOTE | 2017-06-06 16:28 | Internal Med Progress Note ---
Subjective Date of Service: Jun 06, 2017 Physician Name Pires,Zoey Attending Physician Chaitanya Weinstein MD Current Medications Medications (Trade) Dose Ordered Sig/Jose Route PRN Reason Start Time Stop Time Status Last Admin Dose Admin Acetaminophen (Tylenol) 650 mg Q4H PRN ORAL T>100.5 06/03/17 13:30 07/03/17 13:29 06/05/17 23:24 Albuterol/ Ipratropium (Albuterol/ Ipratropium) 3 ml Q4H PRN HHN Shortness of Breath 06/03/17 13:30 06/08/17 13:29 Alprazolam (Xanax) 2 mg BID ORAL 06/04/17 18:00 06/11/17 17:59 06/06/17 10:05 Alprazolam (Xanax) 2 mg DAILYPRN PRN ORAL For Anxiety 06/04/17 12:00 06/11/17 11:59 Amlodipine Besylate (Norvasc) 10 mg DAILY ORAL 06/04/17 09:00 07/04/17 08:59 06/05/17 10:20 Aripiprazole (Abilify) 15 mg DAILY ORAL 06/04/17 09:00 07/04/17 08:59 06/06/17 12:28 Aspirin (ASA) 81 mg DAILY ORAL 06/04/17 09:30 07/04/17 09:29 06/06/17 10:01 Azithromycin 500 mg/Dextrose 275 ml @ 275 mls/hr Q24HRS IV 06/04/17 15:00 06/10/17 15:59 06/05/17 16:03 Bupropion HCl (Wellbutrin) 100 mg BID ORAL 06/03/17 18:00 07/03/17 17:59 06/06/17 10:01 Carisoprodol (Soma) 350 mg BID ORAL 06/04/17 18:00 07/04/17 17:59 06/06/17 10:03 Carisoprodol (Soma) 350 mg Q6H PRN ORAL MUSCLE SPASMS 06/03/17 13:30 07/03/17 13:29 Carvedilol (Coreg) 25 mg EVERY 12 HOURS ORAL 06/04/17 11:30 07/04/17 11:29 06/05/17 21:11 Chlorhexidine Gluconate (Mireille-Hex 2%) 1 applic DAILY@2000 TOPIC 06/05/17 20:00 07/05/17 19:59 06/05/17 21:11 Clonidine HCl (Catapres Tab) 0.1 mg Q4H PRN ORAL bp over 160 syst 06/03/17 16:30 07/03/17 16:29 Dextrose (Dextrose 50%) STAT PRN IV Hypoglycemia 06/03/17 13:30 07/03/17 13:29 Docusate Sodium (Colace) 100 mg THREE TIMES A DAY ORAL 06/03/17 18:00 07/03/17 17:59 06/06/17 10:01 Heparin Sodium (Porcine) (Heparin 5000 units/ml) 5,000 units EVERY 12 HOURS SUBQ 06/04/17 09:00 07/04/17 08:59 06/04/17 20:50 Lisinopril (Prinivil) 20 mg BID ORAL 06/04/17 09:00 07/04/17 08:59 06/05/17 18:02 Morphine Sulfate (Morphine Sulfate) 4 mg Q4H PRN IVP BREAKTHROUGH CHEST PAIN 06/04/17 22:00 06/11/17 21:59 06/06/17 04:26 Nitroglycerin (Ntg) 0.4 mg Q5M PRN SL Prn Chest Pain 06/04/17 09:15 07/04/17 09:14 06/05/17 00:34 Nitroglycerin (Ntg) 1 patch Q24H TDERMAL 06/04/17 11:30 07/04/17 11:29 06/06/17 12:32 Ondansetron HCl (Zofran) 4 mg Q6H PRN IVP Nausea & Vomiting 06/03/17 13:30 07/03/17 13:29 Pantoprazole (Protonix) 40 mg DAILY ORAL 06/03/17 17:00 07/03/17 16:59 06/06/17 10:00 Piperacillin Sod/ Tazobactam Sod 2.25 gm/Sodium Chloride 55 ml @ 110 mls/hr Q8HR IVPB 06/04/17 14:00 06/09/17 13:59 06/06/17 06:03 Polyethylene Glycol (Miralax) 17 gm DAILYPRN PRN ORAL Constipation 06/03/17 13:30 07/03/17 13:29 Promethazine HCl/ Codeine (Phenergan with Codeine) 5 ml Q4H PRN ORAL For Cough 06/05/17 08:30 07/05/17 08:29 Sevelamer Carbonate (Renvela) 1,600 mg THREE TIMES A DAY ORAL 06/04/17 13:00 07/04/17 12:59 06/06/17 10:00 Temazepam (Restoril) 15 mg HSPRN PRN ORAL Insomnia 06/03/17 21:00 06/10/17 20:59 06/05/17 21:10 Vancomycin HCl (Vanco rx to dose) 1 ea DAILY PRN MISC Per rx protocol 06/04/17 12:45 07/04/17 12:44 Allergies: Coded Allergies: No Known Allergies (Unverified , 10/24/15) ROS Limited/Unobtainable: Yes Subjective 57 YO M admitted with chest pain and shortness of breath. Now pneumonia and candelaria heart failure. On BIPAP. Cover for Int Med-Dr Weinstein. HIMANSHU Objective Last Vital Signs Date Time Temp Pulse Resp B/P (MAP) Pulse Ox O2 Delivery O2 Flow Rate FiO2 06/06/17 12:32 111/71 06/06/17 12:00 84 06/06/17 12:00 45 06/06/17 12:00 98.4 21 83 Bi-pap 98.4 06/06/17 08:00 5.0 Laboratory Tests Test 06/06/17 04:30 06/06/17 11:04 White Blood Count 7.6 K/UL (4.8-10.8) Red Blood Count 2.46 M/UL (4.70-6.10) L Hemoglobin 7.2 G/DL (14.2-18.0) L Hematocrit 22.2 % (42.0-52.0) L Mean Corpuscular Volume 90 FL (80-99) Mean Corpuscular Hemoglobin 29.2 PG (27.0-31.0) Mean Corpuscular Hemoglobin Concent 32.4 G/DL (32.0-36.0) Red Cell Distribution Width 16.4 % (11.6-14.8) H Platelet Count 71 K/UL (150-450) L Mean Platelet Volume 9.1 FL (6.5-10.1) Neutrophils (%) (Auto) % (45.0-75.0) Lymphocytes (%) (Auto) % (20.0-45.0) Monocytes (%) (Auto) % (1.0-10.0) Eosinophils (%) (Auto) % (0.0-3.0) Basophils (%) (Auto) % (0.0-2.0) Differential Total Cells Counted 100 Neutrophils % (Manual) 78 % (45-75) H Lymphocytes % (Manual) 9 % (20-45) L Monocytes % (Manual) 5 % (1-10) Eosinophils % (Manual) 8 % (0-3) H Basophils % (Manual) 0 % (0-2) Band Neutrophils 0 % (0-8) Platelet Estimate Decreased L Platelet Morphology Normal Hypochromasia 1+ Anisocytosis 1+ Sodium Level 140 MMOL/L (136-145) Potassium Level 4.3 MMOL/L (3.5-5.1) Chloride Level 100 MMOL/L (98-107) Carbon Dioxide Level 30 MMOL/L (21-32) Anion Gap 10 mmol/L (5-15) Blood Urea Nitrogen 74 mg/dL (7-18) H Creatinine 10.0 MG/DL (0.55-1.30) H Estimat Glomerular Filtration Rate 6.5 mL/min (>60) Glucose Level 104 MG/DL (74-106) Uric Acid 5.5 MG/DL (2.6-7.2) Calcium Level 8.2 MG/DL (8.5-10.1) L Phosphorus Level 6.8 MG/DL (2.5-4.9) H Magnesium Level 1.9 MG/DL (1.8-2.4) Total Bilirubin 0.7 MG/DL (0.2-1.0) Gamma Glutamyl Transpeptidase 118 U/L (5-85) H Aspartate Amino Transf (AST/SGOT) 15 U/L (15-37) Alanine Aminotransferase (ALT/SGPT) 28 U/L (12-78) Alkaline Phosphatase 92 U/L (46-116) C-Reactive Protein, Quantitative 15.5 mg/dL (0.00-0.90) H Pro-B-Type Natriuretic Peptide 550920 pg/mL (0-125) H Total Protein 5.8 G/DL (6.4-8.2) L Albumin 2.3 G/DL (3.4-5.0) L Globulin 3.5 g/dL Albumin/Globulin Ratio 0.7 (1.0-2.7) L HIV (1&2) Antibody Rapid Negative (NEGATIVE) Arterial Blood pH 7.320 (7.350-7.450) Arterial Blood Partial Pressure CO2 51.8 mmHg (35.0-45.0) H Arterial Blood Partial Pressure O2 120.0 mmHg (75.0-100.0) H Arterial Blood HCO3 26.3 mmol/L (22.0-26.0) H Arterial Blood Oxygen Saturation 96.8 % (92.0-98.0) Arterial Blood Base Excess 0.1 Juan A Test Positive Microbiology Date/Time Source Procedure Growth Status 06/04/17 13:40 Blood Blood Culture - Preliminary NO GROWTH AFTER 24 HOURS Resulted 06/04/17 13:30 Blood Blood Culture - Preliminary NO GROWTH AFTER 24 HOURS Resulted 06/05/17 02:55 Sputum Expectorated Gram Stain - Final Resulted 06/05/17 02:55 Sputum Expectorated Sputum Culture Pending Resulted Intake and Output 06/05/17 06/06/17 19:00 07:00 Intake Total 500 ml 630 ml Balance 500 ml 630 ml Intake Oral 500 ml 300 ml IV Total 330 ml # Voids 1 1 Objective General Appearance: WD/WN, alert, moderate distress EENT: PERRL/EOMI, normal ENT inspection Neck: non-tender, normal alignment, supple, normal inspection Cardiovascular: normal peripheral pulses, normal rate, regular rhythm, no gallop/murmur, no JVD Respiratory/Chest: BIPAP; respiratory distress, crackles/rales, rhonchi - bilaterally, expiratory wheezing Abdomen: normal bowel sounds, non tender, soft, no organomegaly, no mass Extremities: normal range of motion 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 ?volume overload? Currently on BIPAP. See pulmonay note. (2) Pleuritic chest pain (3) Hemoptysis Assessment & Plan: Due to pneumonia (4) Pneumonia Assessment & Plan: RUL and cavitary. Concerning for TB. Await AFB cultures- see ID consult. (5) Shortness of breath (6) ESRD (end stage renal disease) on dialysis Assessment & Plan: See nephrology note. Hemodialysis 06/06/17 per nephrology (7) Hyperkalemia Assessment & Plan: Due to renal failure. Hemodialysis 06/06/17 per nephrology (8) COPD (chronic obstructive pulmonary disease) (9) HTN (hypertension) Assessment & Plan: Continue coreg and lisinopril. (10) CHF (congestive heart failure) (11) Elevated troponin Assessment & Plan: ?due to renal failure? See cardiology note. Status: unchanged ZOEY PIRES Jun 06, 2017 16:28
--- NOTE | 2017-06-06 17:02 | Infectious Diseases Prog Note ---
Assessment/Plan Assessment/Plan ASSESSMENT: The patient is a 57-year-old male with, Low-grade fever. Status post leukocytosis. Thrombocytopenia. Influenza A and B screen negative. Pneumonia with possible cavitary lesion/hemoptysis. CT: 7.8 x 5.3 x 6.6 cm dense opacity in the posterior inferior right upper lobe with a central cavitation. Chest x-ray : right mid lung infiltrate, possible cavitation Rule out tuberculosis, fungal infection, or necrotizing pneumonia. CRP 14 Influenza negative HIV : nEG Seizure disorder History of CVA History of pacemaker placement Hyperlipidemia Hypertension COPD/asthma End-stage renal disease, on hemodialysis Diabetes Anxiety Anemia Echo, ejection fraction 45% to 50%. PLAN: Patient on Zosyn, vancomycin and Zithromax day # 3 sputum culture (bacterial, fungal, and AFB x3). T-SPOT. sputum for MTB PCR. Coccidioidal and cryptococcus serology. Galactomannan and Fungitell. Airborne isolation Subjective Allergies: Coded Allergies: No Known Allergies (Unverified , 10/24/15) Subjective no new complain afebrile Objective Vital Signs Last 24 Hour Vital Signs Date Time Temp Pulse Resp B/P (MAP) Pulse Ox O2 Delivery O2 Flow Rate FiO2 06/06/17 16:44 94 06/06/17 16:00 98.4 91 22 113/73 80 Bi-pap 98.4 06/06/17 15:29 81 31 95 Full Face 45 06/06/17 14:00 Nasal Cannula 5.0 06/06/17 14:00 98.4 80 109/71 Nasal Cannula 5.0 98.4 06/06/17 12:32 111/71 06/06/17 12:00 84 06/06/17 12:00 45 06/06/17 12:00 98.4 86 21 83 Bi-pap 98.4 06/06/17 11:30 45 06/06/17 11:02 60 06/06/17 10:45 86 25 100 Full Face 80 06/06/17 08:30 60 06/06/17 08:00 97.6 79 17 126/63 95 97.6 06/06/17 08:00 5.0 06/06/17 07:42 Venturi Mask 10.0 45 06/06/17 07:41 94 Venturi Mask 10.0 45 06/06/17 07:30 84 06/06/17 04:26 99.6 06/06/17 04:00 98.6 74 26 113/80 94 Venturi Mask 50 98.6 06/06/17 04:00 50 06/06/17 04:00 79 06/06/17 00:23 99.6 06/06/17 00:00 99.0 95 32 114/66 96 Venturi Mask 50 99.0 06/06/17 00:00 77 06/06/17 00:00 50 06/05/17 23:24 100.0 06/05/17 23:09 95 Venturi Mask 10.0 45 06/05/17 23:09 Venturi Mask 10.0 45 06/05/17 22:57 74 18 98 Full Face 80 06/05/17 21:11 77 109/70 06/05/17 21:10 97.3 06/05/17 20:55 102 24 97 Full Face 100 06/05/17 20:00 40 06/05/17 20:00 98.2 80 25 109/70 100 Bi-pap 40 98.2 06/05/17 19:28 Bi-pap 100 06/05/17 19:28 94 Bi-pap 100 06/05/17 19:28 89 25 94 Full Face 100 06/05/17 18:59 75 06/05/17 18:02 104/67 06/05/17 17:40 86 Height (Feet): 5 Height (Inches): 7.00 Weight (Pounds): 230 HEENT: anicteric Respiratory/Chest: no respiratory distress Cardiovascular: regular rhythm Abdomen: soft, non tender Microbiology Date/Time Source Procedure Growth Status 06/04/17 13:40 Blood Blood Culture - Preliminary NO GROWTH AFTER 24 HOURS Resulted 06/04/17 13:30 Blood Blood Culture - Preliminary NO GROWTH AFTER 24 HOURS Resulted 06/05/17 02:55 Sputum Expectorated Gram Stain - Final Resulted 06/05/17 02:55 Sputum Expectorated Sputum Culture Pending Resulted Laboratory Tests Test 06/06/17 04:30 06/06/17 11:04 White Blood Count 7.6 K/UL (4.8-10.8) Red Blood Count 2.46 M/UL (4.70-6.10) L Hemoglobin 7.2 G/DL (14.2-18.0) L Hematocrit 22.2 % (42.0-52.0) L Mean Corpuscular Volume 90 FL (80-99) Mean Corpuscular Hemoglobin 29.2 PG (27.0-31.0) Mean Corpuscular Hemoglobin Concent 32.4 G/DL (32.0-36.0) Red Cell Distribution Width 16.4 % (11.6-14.8) H Platelet Count 71 K/UL (150-450) L Mean Platelet Volume 9.1 FL (6.5-10.1) Neutrophils (%) (Auto) % (45.0-75.0) Lymphocytes (%) (Auto) % (20.0-45.0) Monocytes (%) (Auto) % (1.0-10.0) Eosinophils (%) (Auto) % (0.0-3.0) Basophils (%) (Auto) % (0.0-2.0) Differential Total Cells Counted 100 Neutrophils % (Manual) 78 % (45-75) H Lymphocytes % (Manual) 9 % (20-45) L Monocytes % (Manual) 5 % (1-10) Eosinophils % (Manual) 8 % (0-3) H Basophils % (Manual) 0 % (0-2) Band Neutrophils 0 % (0-8) Platelet Estimate Decreased L Platelet Morphology Normal Hypochromasia 1+ Anisocytosis 1+ Sodium Level 140 MMOL/L (136-145) Potassium Level 4.3 MMOL/L (3.5-5.1) Chloride Level 100 MMOL/L (98-107) Carbon Dioxide Level 30 MMOL/L (21-32) Anion Gap 10 mmol/L (5-15) Blood Urea Nitrogen 74 mg/dL (7-18) H Creatinine 10.0 MG/DL (0.55-1.30) H Estimat Glomerular Filtration Rate 6.5 mL/min (>60) Glucose Level 104 MG/DL (74-106) Uric Acid 5.5 MG/DL (2.6-7.2) Calcium Level 8.2 MG/DL (8.5-10.1) L Phosphorus Level 6.8 MG/DL (2.5-4.9) H Magnesium Level 1.9 MG/DL (1.8-2.4) Total Bilirubin 0.7 MG/DL (0.2-1.0) Gamma Glutamyl Transpeptidase 118 U/L (5-85) H Aspartate Amino Transf (AST/SGOT) 15 U/L (15-37) Alanine Aminotransferase (ALT/SGPT) 28 U/L (12-78) Alkaline Phosphatase 92 U/L (46-116) C-Reactive Protein, Quantitative 15.5 mg/dL (0.00-0.90) H Pro-B-Type Natriuretic Peptide 253409 pg/mL (0-125) H Total Protein 5.8 G/DL (6.4-8.2) L Albumin 2.3 G/DL (3.4-5.0) L Globulin 3.5 g/dL Albumin/Globulin Ratio 0.7 (1.0-2.7) L HIV (1&2) Antibody Rapid Negative (NEGATIVE) Arterial Blood pH 7.320 (7.350-7.450) Arterial Blood Partial Pressure CO2 51.8 mmHg (35.0-45.0) H Arterial Blood Partial Pressure O2 120.0 mmHg (75.0-100.0) H Arterial Blood HCO3 26.3 mmol/L (22.0-26.0) H Arterial Blood Oxygen Saturation 96.8 % (92.0-98.0) Arterial Blood Base Excess 0.1 Juan A Test Positive Current Medications Medications (Trade) Dose Ordered Sig/Jose Route PRN Reason Start Time Stop Time Status Last Admin Dose Admin Acetaminophen (Tylenol) 650 mg Q4H PRN ORAL T>100.5 06/03/17 13:30 07/03/17 13:29 06/05/17 23:24 Albuterol/ Ipratropium (Albuterol/ Ipratropium) 3 ml Q4H PRN HHN Shortness of Breath 06/03/17 13:30 06/08/17 13:29 Alprazolam (Xanax) 2 mg BID ORAL 06/04/17 18:00 06/11/17 17:59 06/06/17 10:05 Alprazolam (Xanax) 2 mg DAILYPRN PRN ORAL For Anxiety 06/04/17 12:00 06/11/17 11:59 Amlodipine Besylate (Norvasc) 10 mg DAILY ORAL 06/04/17 09:00 07/04/17 08:59 06/05/17 10:20 Aripiprazole (Abilify) 15 mg DAILY ORAL 06/04/17 09:00 07/04/17 08:59 06/06/17 12:28 Aspirin (ASA) 81 mg DAILY ORAL 06/04/17 09:30 07/04/17 09:29 06/06/17 10:01 Azithromycin 500 mg/Dextrose 275 ml @ 275 mls/hr Q24HRS IV 06/04/17 15:00 06/10/17 15:59 06/05/17 16:03 Bupropion HCl (Wellbutrin) 100 mg BID ORAL 06/03/17 18:00 07/03/17 17:59 06/06/17 10:01 Carisoprodol (Soma) 350 mg BID ORAL 06/04/17 18:00 07/04/17 17:59 06/06/17 10:03 Carisoprodol (Soma) 350 mg Q6H PRN ORAL MUSCLE SPASMS 06/03/17 13:30 07/03/17 13:29 Carvedilol (Coreg) 25 mg EVERY 12 HOURS ORAL 06/04/17 11:30 07/04/17 11:29 06/05/17 21:11 Chlorhexidine Gluconate (Mireille-Hex 2%) 1 applic DAILY@2000 TOPIC 06/05/17 20:00 07/05/17 19:59 06/05/17 21:11 Clonidine HCl (Catapres Tab) 0.1 mg Q4H PRN ORAL bp over 160 syst 06/03/17 16:30 07/03/17 16:29 Dextrose (Dextrose 50%) STAT PRN IV Hypoglycemia 06/03/17 13:30 07/03/17 13:29 Docusate Sodium (Colace) 100 mg THREE TIMES A DAY ORAL 06/03/17 18:00 07/03/17 17:59 06/06/17 10:01 Heparin Sodium (Porcine) (Heparin 5000 units/ml) 5,000 units EVERY 12 HOURS SUBQ 06/04/17 09:00 07/04/17 08:59 06/04/17 20:50 Lisinopril (Prinivil) 20 mg BID ORAL 06/04/17 09:00 07/04/17 08:59 06/05/17 18:02 Morphine Sulfate (Morphine Sulfate) 4 mg Q4H PRN IVP BREAKTHROUGH CHEST PAIN 06/04/17 22:00 06/11/17 21:59 06/06/17 04:26 Nitroglycerin (Ntg) 0.4 mg Q5M PRN SL Prn Chest Pain 06/04/17 09:15 07/04/17 09:14 06/05/17 00:34 Nitroglycerin (Ntg) 1 patch Q24H TDERMAL 06/04/17 11:30 07/04/17 11:29 06/06/17 12:32 Ondansetron HCl (Zofran) 4 mg Q6H PRN IVP Nausea & Vomiting 06/03/17 13:30 07/03/17 13:29 Pantoprazole (Protonix) 40 mg DAILY ORAL 06/03/17 17:00 07/03/17 16:59 06/06/17 10:00 Piperacillin Sod/ Tazobactam Sod 2.25 gm/Sodium Chloride 55 ml @ 110 mls/hr Q8HR IVPB 06/04/17 14:00 06/09/17 13:59 06/06/17 06:03 Polyethylene Glycol (Miralax) 17 gm DAILYPRN PRN ORAL Constipation 06/03/17 13:30 07/03/17 13:29 Promethazine HCl/ Codeine (Phenergan with Codeine) 5 ml Q4H PRN ORAL For Cough 06/05/17 08:30 07/05/17 08:29 Sevelamer Carbonate (Renvela) 1,600 mg THREE TIMES A DAY ORAL 06/04/17 13:00 07/04/17 12:59 06/06/17 10:00 Temazepam (Restoril) 15 mg HSPRN PRN ORAL Insomnia 06/03/17 21:00 06/10/17 20:59 06/05/17 21:10 Vancomycin HCl (Vanco rx to dose) 1 ea DAILY PRN MISC Per rx protocol 06/04/17 12:45 07/04/17 12:44 PREET GUAJARDO M.D. Jun 06, 2017 17:02
[2017-06-06] MEDS: Azithromycin 500 MG in D5W 275 ML IV SCH (19:39)
[2017-06-06] MEDS: Dyna-Hex 2% Top Sol 2oz TOPIC SCH (21:11)
[2017-06-07] VITALS: BP 111/67
[2017-06-07] MEDS: ALPRAZolam 0.5mg tab ORAL PRN (01:36)
[2017-06-07] MEDS ORDERED: Piperacillin/Tazobactam 2.25 GM in NS 55 ML IVPB SCH ×2 (02:00→14:00)
[2017-06-07 04:00] VITALS: BP 101/58
[2017-06-07 04:26] LABS: HEMATOCRIT 21.5 % (42.0-52.0); MEAN CORPUSCULAR VOLUME 91 FL (80-99); PLATELET COUNT 76 K/UL (150-450); RED BLOOD COUNT 2.37 M/UL (4.70-6.10); RED CELL DISTRIBUTION WIDTH 16.3 % (11.6-14.8); WHITE BLOOD COUNT 6.6 K/UL (4.8-10.8)
[2017-06-07 04:32] LABS: HEMOGLOBIN 6.8 G/DL (14.2-18.0)
[2017-06-07 05:16] LABS: ALANINE AMINOTRANSFERASE 25 U/L (12-78); ALBUMIN 2.1 G/DL (3.4-5.0); ALBUMIN/GLOBULIN RATIO 0.6 (1.0-2.7); ALKALINE PHOSPHATASE 92 U/L (46-116); ANION GAP 6 mmol/L (5-15); ASPARTATE AMINO TRANSFERASE 13 U/L (15-37); BILIRUBIN,TOTAL 0.8 MG/DL (0.2-1.0); BLOOD UREA NITROGEN 53 mg/dL (7-18); CALCIUM 8.1 MG/DL (8.5-10.1); CARBON DIOXIDE 35 MMOL/L (21-32); CHLORIDE 102 MMOL/L (98-107); CREATININE 8.5 MG/DL (0.55-1.30); SODIUM 143 MMOL/L (136-145)
[2017-06-07 06:06] LABS: PHOSPHORUS 5.7 MG/DL (2.5-4.9)
--- NOTE | 2017-06-07 07:32 | Pulmonology Progress Note ---
Assessment/Plan Assessment/Plan ASSESSMENT' Acute hypoxemic RF requiring BiPAP Pleuritic chest pain. Elevated troponin Systolic CHF ( recent negative reversible perfusion defect.) cardiomyopathy Necrotizing PNA with cavitating lesion RUL r/o TB pulmonary edema Asthma. End-stage renal disease, on hemodialysis. Hypertensive urgency . Anemia of chronic disease. History of intracardiac defibrillator placement. Prior history of cerebrovascular accident. ESRD on HD thrombocytopenia PLAN OF CARE [facility] BiPAP at HS and prn titrate O2 to keep sat above 92% ABG titrate settings and wean as tolerated Pulmonary toilet CT chest with evidence of necrotizing PNA with cavitary lesion w/up for TB TB spot negative, sputum for MTB by PCR fungal serology HIV negative cardio follows abx for possible PNA sputum cx negative blood cx negative, influenza screen negative BP management wth BB CCB and GREG[facility] medical management for SHF a/tussive prn nephro follows HD as per nephro transfuse today anemia w/up, stool OB GI eval dc Heparin SCD if Venous negative case discussed and evaluated by supervising physician Subjective Allergies: Coded Allergies: No Known Allergies (Unverified , 10/24/15) Subjective Hgb down to 6.8 no evidence of active [id number] on airborne isolation to r/o TB afebrile, no leucocytosis intermittently on BiPAP, currently on NC Objective Last 24 Hour Vital Signs Date Time Temp Pulse Resp B/P (MAP) Pulse Ox O2 Delivery O2 Flow Rate FiO2 06/07/17 07:07 Nasal Cannula 5.0 40 06/07/17 07:07 97 Nasal Cannula 5.0 40 06/07/17 05:42 72 24 94 Full Face 45 06/07/17 04:00 98.2 82 20 101/58 94 Bi-pap 45 98.2 06/07/17 04:00 45 06/07/17 04:00 81 06/07/17 03:36 78 32 95 Full Face 45 06/07/17 02:00 45 06/07/17 00:00 98.6 81 20 111/67 90 Venturi Mask 45 98.6 06/07/17 00:00 97 06/07/17 00:00 45 06/06/17 21:35 94 06/06/17 21:11 89 119/80 06/06/17 20:00 98.4 80 20 119/80 90 98.4 06/06/17 20:00 45 06/06/17 20:00 98.4 89 27 119/80 95 Bi-pap 45 98.4 06/06/17 19:59 101 28 99 Full Face 45 06/06/17 19:58 Bi-pap 45 06/06/17 19:58 95 Venturi Mask 45 06/06/17 18:41 98.4 91 22 113/73 80 Bi-pap 98.4 06/06/17 18:00 113/73 06/06/17 17:30 98.8 98 40 121/73 Nasal Cannula 5.0 98.8 06/06/17 17:30 Nasal Cannula 5.0 06/06/17 16:44 94 06/06/17 16:00 98.4 91 22 113/73 80 Bi-pap 98.4 06/06/17 16:00 77 06/06/17 16:00 45 06/06/17 16:00 45 06/06/17 15:29 81 31 95 Full Face 45 06/06/17 14:00 Nasal Cannula 5.0 06/06/17 14:00 98.4 80 109/71 Nasal Cannula 5.0 98.4 06/06/17 12:32 111/71 06/06/17 12:00 84 06/06/17 12:00 45 06/06/17 12:00 98.4 86 21 83 Bi-pap 98.4 06/06/17 11:30 45 06/06/17 11:02 60 06/06/17 10:45 86 25 100 Full Face 80 06/06/17 08:30 60 06/06/17 08:00 97.6 79 17 126/63 95 97.6 06/06/17 08:00 5.0 06/06/17 07:42 Venturi Mask 10.0 45 06/06/17 07:41 94 Venturi Mask 10.0 45 Intake and Output 06/06/17 06/07/17 19:00 07:00 Intake Total 1270 ml 330 ml Output Total 3000 ml Balance -1730 ml 330 ml Intake Oral 1270 ml IV Total 330 ml Output Urine Total 0 ml Stool Total 0 ml Hemodialysis UF 3000 ml # Bowel Movements 4 General Appearance: no acute distress - obese awake, alert, responsive AA male , other - on BiPAP HEENT: normocephalic, atraumatic, anicteric Respiratory/Chest: decreased breath sounds, crackles/rales - few scattered , other - R jugular HD catheter, intact, ICD Lt chest Cardiovascular: normal rate, regular rhythm - SR on tele Abdomen: normal bowel sounds, soft, non tender - obese Extremities: other - trace edema BLE Neurologic/Psychiatric: alert, responsive Musculoskeletal: normal muscle bulk Microbiology Date/Time Source Procedure Growth Status 06/04/17 13:40 Blood Blood Culture - Preliminary NO GROWTH AFTER 24 HOURS Resulted 06/04/17 13:30 Blood Blood Culture - Preliminary NO GROWTH AFTER 24 HOURS Resulted 06/05/17 02:55 Sputum Expectorated Gram Stain - Final Resulted 06/05/17 02:55 Sputum Expectorated Sputum Culture Pending Resulted Laboratory Tests 06/06/17 11:04: Arterial Blood pH 7.320L, Arterial Blood Partial Pressure CO2 51.8H, Arterial Blood Partial Pressure O2 120.0H, Arterial Blood HCO3 26.3H, Arterial Blood Oxygen Saturation 96.8, Arterial Blood Base Excess 0.1, Juan A Test Positive 06/07/17 03:30: White Blood Count 6.6, Red Blood Count 2.37L, Hemoglobin 6.8*L, Hematocrit 21.5L , Mean Corpuscular Volume 91, Mean Corpuscular Hemoglobin 28.8, Mean Corpuscular Hemoglobin Concent 31.7L, Red Cell Distribution Width 16.3H, Platelet Count 76L, Mean Platelet Volume 8.4, Neutrophils (%) (Auto) , Lymphocytes (%) (Auto) , Monocytes (%) (Auto) , Eosinophils (%) (Auto) , Basophils (%) (Auto) , Neutrophils % (Manual) [Pending], Lymphocytes % (Manual) [Pending], Platelet Estimate [Pending], Platelet Morphology [Pending], Sodium Level 143, Potassium Level 4.0, Chloride Level 102, Carbon Dioxide Level 35H, Anion Gap 6, Blood Urea Nitrogen 53H, Creatinine 8.5H, Estimat Glomerular Filtration Rate 7.9, Glucose Level 99, Calcium Level 8.1L, Phosphorus Level 5.7H , Magnesium Level 1.9, Total Bilirubin 0.8, Aspartate Amino Transf (AST/SGOT) 13L, Alanine Aminotransferase (ALT/SGPT) 25, Alkaline Phosphatase 92, Pro-B- Type Natriuretic Peptide > 96026L, Total Protein 5.4L, Albumin 2.1L, Globulin 3.3, Albumin/Globulin Ratio 0.6L, Random Vancomycin Level 18.0 06/07/17 04:00: M. tuberculosis Complex DNA (PCR) [Pending] Current Medications Medications (Trade) Dose Ordered Sig/Jose Route PRN Reason Start Time Stop Time Status Last Admin Dose Admin Acetaminophen (Tylenol) 650 mg Q4H PRN ORAL T>100.5 06/03/17 13:30 07/03/17 13:29 06/05/17 23:24 Albuterol/ Ipratropium (Albuterol/ Ipratropium) 3 ml Q4H PRN HHN Shortness of Breath 06/03/17 13:30 06/08/17 13:29 Alprazolam (Xanax) 2 mg BID ORAL 06/04/17 18:00 06/11/17 17:59 06/06/17 18:34 Alprazolam (Xanax) 2 mg DAILYPRN PRN ORAL For Anxiety 06/04/17 12:00 06/11/17 11:59 06/07/17 01:36 Amlodipine Besylate (Norvasc) 10 mg DAILY ORAL 06/04/17 09:00 07/04/17 08:59 06/05/17 10:20 Aripiprazole (Abilify) 15 mg DAILY ORAL 06/04/17 09:00 07/04/17 08:59 06/06/17 12:28 Aspirin (ASA) 81 mg DAILY ORAL 06/04/17 09:30 07/04/17 09:29 06/06/17 10:01 Azithromycin 500 mg/Dextrose 275 ml @ 275 mls/hr Q24HRS IV 06/04/17 15:00 06/10/17 15:59 06/06/17 19:39 Bupropion HCl (Wellbutrin) 100 mg BID ORAL 06/03/17 18:00 07/03/17 17:59 06/06/17 18:33 Carisoprodol (Soma) 350 mg BID ORAL 06/04/17 18:00 07/04/17 17:59 06/06/17 18:33 Carisoprodol (Soma) 350 mg Q6H PRN ORAL MUSCLE SPASMS 06/03/17 13:30 07/03/17 13:29 Carvedilol (Coreg) 25 mg EVERY 12 HOURS ORAL 06/04/17 11:30 07/04/17 11:29 06/06/17 21:11 Chlorhexidine Gluconate (Mireille-Hex 2%) 1 applic DAILY@2000 TOPIC 06/05/17 20:00 07/05/17 19:59 06/06/17 21:11 Clonidine HCl (Catapres Tab) 0.1 mg Q4H PRN ORAL bp over 160 syst 06/03/17 16:30 07/03/17 16:29 Dextrose (Dextrose 50%) STAT PRN IV Hypoglycemia 06/03/17 13:30 07/03/17 13:29 Docusate Sodium (Colace) 100 mg THREE TIMES A DAY ORAL 06/03/17 18:00 07/03/17 17:59 06/06/17 18:31 Heparin Sodium (Porcine) (Heparin 5000 units/ml) 5,000 units EVERY 12 HOURS SUBQ 06/04/17 09:00 07/04/17 08:59 06/04/17 20:50 Lisinopril (Prinivil) 20 mg BID ORAL 06/04/17 09:00 07/04/17 08:59 06/05/17 18:02 Morphine Sulfate (Morphine Sulfate) 4 mg Q4H PRN IVP BREAKTHROUGH CHEST PAIN 06/04/17 22:00 06/11/17 21:59 06/06/17 04:26 Nitroglycerin (Ntg) 0.4 mg Q5M PRN SL Prn Chest Pain 06/04/17 09:15 07/04/17 09:14 06/05/17 00:34 Nitroglycerin (Ntg) 1 patch Q24H TDERMAL 06/04/17 11:30 07/04/17 11:29 06/06/17 12:32 Ondansetron HCl (Zofran) 4 mg Q6H PRN IVP Nausea & Vomiting 06/03/17 13:30 07/03/17 13:29 Pantoprazole (Protonix) 40 mg DAILY ORAL 06/03/17 17:00 07/03/17 16:59 06/06/17 10:00 Piperacillin Sod/ Tazobactam Sod 2.25 gm/Sodium Chloride 55 ml @ 110 mls/hr Q8H IVPB 06/07/17 02:00 06/14/17 01:59 06/07/17 02:09 Polyethylene Glycol (Miralax) 17 gm DAILYPRN PRN ORAL Constipation 06/03/17 13:30 07/03/17 13:29 Promethazine HCl/ Codeine (Phenergan with Codeine) 5 ml Q4H PRN ORAL For Cough 06/05/17 08:30 07/05/17 08:29 Sevelamer Carbonate (Renvela) 1,600 mg THREE TIMES A DAY ORAL 06/04/17 13:00 07/04/17 12:59 06/06/17 18:31 Temazepam (Restoril) 15 mg HSPRN PRN ORAL Insomnia 06/03/17 21:00 06/10/17 20:59 06/05/17 21:10 Vancomycin HCl (Vanco rx to dose) 1 ea DAILY PRN MISC Per rx protocol 06/04/17 12:45 07/04/17 12:44 Vancomycin HCl/ Dextrose 250 ml @ 125 mls/hr NOW ONCE IVPB 06/07/17 08:00 06/07/17 09:59 Mariela Madrigal NP ([facility]) Jun 07, 2017 07:32
[2017-06-07 08:00] VITALS: BP 115/63
[2017-06-07] MEDS ORDERED: Vancomycin 1.5 GM/D5W 250ML IVPB ONE ×2 (08:00→21:00)
[2017-06-07] MEDS: Carvedilol 25mg Tab ORAL SCH ×2 (08:30→20:42)
[2017-06-07] MEDS: Docusate 100mg cap ORAL SCH ×3 (08:31→18:00)
[2017-06-07] MEDS: ALPRAZolam 0.5mg tab ORAL SCH ×2 (08:31→18:24)
[2017-06-07] MEDS: Aspirin Baby 81mg ORAL SCH (08:31)
[2017-06-07] MEDS: Lisinopril 20mg tab ORAL SCH ×2 (08:33→18:24)
[2017-06-07] MEDS: Heparin 5000 units/ml inj SUBQ SCH (08:33)
[2017-06-07 09:11] LABS: HEMATOCRIT 22.6 % (42.0-52.0); HEMOGLOBIN 7.2 G/DL (14.2-18.0); MEAN CORPUSCULAR VOLUME 91 FL (80-99); PLATELET COUNT 78 K/UL (150-450); RED BLOOD COUNT 2.49 M/UL (4.70-6.10); RED CELL DISTRIBUTION WIDTH 16.8 % (11.6-14.8)
[2017-06-07] MEDS ORDERED: Albuterol/Ipratropium 3ml neb HHN PRN (09:30)
[2017-06-07 09:51] LABS: FERRITIN 593 NG/ML (8-388)
[2017-06-07 09:56] LABS: % IRON SATURATION 23 % (15-50); IRON 42 ug/dL (50-175); TOTAL IRON BINDING CAPACITY 180 ug/dL (250-450)
--- NOTE | 2017-06-07 11:07 | Diagnostic Imaging Report ---
Indication: Dyspnea Comparison: 06/06/2017 A single view chest radiograph was obtained. Findings: There is enlargement of the cardiac silhouette with pulmonary vascular redistribution and prominence, hazy vessel margins and the suggestion of interstitial edema consistent with CHF. Airspace disease also demonstrated in the right upper lobe which could be pneumonia. The findings appear unchanged. Pacemaker and right jugular line again noted. IMPRESSION: No exchange consultant the last day
--- NOTE | 2017-06-07 11:49 | Nephrology Progress Note ---
Assessment/Plan Problem List: (1) ESRD (end stage renal disease) on dialysis (2) Shortness of breath (3) Anemia Assessment ESRD , missed HD , admitted with high K and pulmonary edema Acute respiratory distress due to volume overload elevated troponin r/o ACS h/o COPD ? exacerbation HTN urgency Cardiomyopathy L AICD anemia of chronic kidney disease Hx of CVA Plan Plan: HD 3/2 next 3/4 Transfused Phos binders BP meds adjustment Optimize cardiac status per orders Subjective ROS Limited/Unobtainable: No Constitutional: Reports: malaise Objective Objective Last 24 Hour Vital Signs Date Time Temp Pulse Resp B/P (MAP) Pulse Ox O2 Delivery O2 Flow Rate FiO2 06/07/17 11:11 87 33 97 Full Face 45 06/07/17 08:33 115/63 06/07/17 08:31 85 115/63 06/07/17 08:30 84 115/63 06/07/17 08:00 80 06/07/17 08:00 98.8 84 12 115/63 91 Nasal Cannula 55.0 98.8 06/07/17 07:07 Nasal Cannula 5.0 40 06/07/17 07:07 97 Nasal Cannula 5.0 40 06/07/17 05:42 72 24 94 Full Face 45 06/07/17 04:00 98.2 82 20 101/58 94 Bi-pap 45 98.2 06/07/17 04:00 45 06/07/17 04:00 81 06/07/17 03:36 78 32 95 Full Face 45 06/07/17 02:00 45 06/07/17 00:00 98.6 81 20 111/67 90 Venturi Mask 45 98.6 06/07/17 00:00 97 06/07/17 00:00 45 06/06/17 21:35 94 06/06/17 21:11 89 119/80 06/06/17 20:00 98.4 80 20 119/80 90 98.4 06/06/17 20:00 45 06/06/17 20:00 98.4 89 27 119/80 95 Bi-pap 45 98.4 06/06/17 19:59 101 28 99 Full Face 45 06/06/17 19:58 Bi-pap 45 06/06/17 19:58 95 Venturi Mask 45 06/06/17 18:41 98.4 91 22 113/73 80 Bi-pap 98.4 06/06/17 18:00 113/73 06/06/17 17:30 98.8 98 40 121/73 Nasal Cannula 5.0 98.8 06/06/17 17:30 Nasal Cannula 5.0 06/06/17 16:44 94 06/06/17 16:00 98.4 91 22 113/73 80 Bi-pap 98.4 06/06/17 16:00 77 06/06/17 16:00 45 06/06/17 16:00 45 06/06/17 15:29 81 31 95 Full Face 45 06/06/17 14:00 Nasal Cannula 5.0 06/06/17 14:00 98.4 80 109/71 Nasal Cannula 5.0 98.4 06/06/17 12:32 111/71 06/06/17 12:00 84 06/06/17 12:00 45 06/06/17 12:00 98.4 86 21 83 Bi-pap 98.4 Intake and Output 06/06/17 06/07/17 19:00 07:00 Intake Total 1270 ml 330 ml Output Total 3000 ml Balance -1730 ml 330 ml Intake Oral 1270 ml IV Total 330 ml Output Urine Total 0 ml Stool Total 0 ml Hemodialysis UF 3000 ml # Bowel Movements 4 Laboratory Tests 06/07/17 03:30: White Blood Count 6.6, Red Blood Count 2.37L, Hemoglobin 6.8*L, Hematocrit 21.5L , Mean Corpuscular Volume 91, Mean Corpuscular Hemoglobin 28.8, Mean Corpuscular Hemoglobin Concent 31.7L, Red Cell Distribution Width 16.3H, Platelet Count 76L, Mean Platelet Volume 8.4, Neutrophils (%) (Auto) , Lymphocytes (%) (Auto) , Monocytes (%) (Auto) , Eosinophils (%) (Auto) , Basophils (%) (Auto) , Differential Total Cells Counted 100, Neutrophils % ( Manual) 75, Lymphocytes % (Manual) 9L, Monocytes % (Manual) 14H, Eosinophils % ( Manual) 2, Basophils % (Manual) 0, Band Neutrophils 0, Platelet Estimate DecreasedL, Platelet Morphology Normal, Hypochromasia 4+, Anisocytosis 1+, Sodium Level 143, Potassium Level 4.0, Chloride Level 102, Carbon Dioxide Level 35H, Anion Gap 6, Blood Urea Nitrogen 53H, Creatinine 8.5H, Estimat Glomerular Filtration Rate 7.9, Glucose Level 99, Calcium Level 8.1L, Phosphorus Level 5.7H , Magnesium Level 1.9, Total Bilirubin 0.8, Aspartate Amino Transf (AST/SGOT) 13L, Alanine Aminotransferase (ALT/SGPT) 25, Alkaline Phosphatase 92, Pro-B- Type Natriuretic Peptide > 37568X, Total Protein 5.4L, Albumin 2.1L, Globulin 3.3, Albumin/Globulin Ratio 0.6L, Random Vancomycin Level 18.0 06/07/17 04:00: M. tuberculosis Complex DNA (PCR) [Pending] 06/07/17 08:45: White Blood Count 7.0, Red Blood Count 2.49L, Hemoglobin 7.2L, Hematocrit 22.6L , Mean Corpuscular Volume 91, Mean Corpuscular Hemoglobin 29.0, Mean Corpuscular Hemoglobin Concent 32.0, Red Cell Distribution Width 16.8H, Platelet Count 78L, Mean Platelet Volume 8.0, Neutrophils (%) (Auto) , Lymphocytes (%) (Auto) , Monocytes (%) (Auto) , Eosinophils (%) (Auto) , Basophils (%) (Auto) , Differential Total Cells Counted 100, Neutrophils % ( Manual) 80H, Lymphocytes % (Manual) 8L, Monocytes % (Manual) 8, Eosinophils % ( Manual) 4H, Basophils % (Manual) 0, Band Neutrophils 0, Platelet Estimate DecreasedL, Platelet Morphology Normal, Hypochromasia 3+, Anisocytosis 1+, Spherocytes 1+, Iron Level 42L, Total Iron Binding Capacity 180L, Percent Iron Saturation 23, Unsaturated Iron Binding 138, Ferritin 593H, Vitamin B12 Level 876, RBC Folate Hemolysate [Pending], Red Blood Cell Folate [Pending] Height (Feet): 5 Height (Inches): 7.00 Weight (Pounds): 230 General Appearance: lethargic Respiratory/Chest: decreased breath sounds Abdomen: soft LIAM MONTELONGO Jun 07, 2017 11:49
[2017-06-07 12:00] VITALS: BP 98/59
[2017-06-07] MEDS: Nitroglycerin Patch 0.4mg TDERMAL SCH (12:07)
--- NOTE | 2017-06-07 12:50 | Cardiology Progress Note ---
Assessment/Plan Assessment/Plan plueritic chest pain neg recent sig perfusion abn; systolic dysfunction on mild degree involving the septum cavitating lung lesion esrd htn anemia icd hx tropn min abn related to esrd likely as no peak no jennifer venou duplex pending will reeorder echo reviewed swma in septum (possible) as tech difficult study ef 45% dialysis per dr grimaldo now in isolation pain meds as per dr lemos will bp med to allow dialysis Objective Last 24 Hour Vital Signs Date Time Temp Pulse Resp B/P (MAP) Pulse Ox O2 Delivery O2 Flow Rate FiO2 06/07/17 12:07 102/58 06/07/17 12:00 98.0 75 16 98/59 96 Bi-pap 45 98.0 06/07/17 11:11 87 33 97 Full Face 45 06/07/17 08:33 115/63 06/07/17 08:31 85 115/63 06/07/17 08:30 84 115/63 06/07/17 08:00 80 06/07/17 08:00 98.8 84 12 115/63 91 Nasal Cannula 55.0 98.8 06/07/17 07:07 Nasal Cannula 5.0 40 06/07/17 07:07 97 Nasal Cannula 5.0 40 06/07/17 05:42 72 24 94 Full Face 45 06/07/17 04:00 98.2 82 20 101/58 94 Bi-pap 45 98.2 06/07/17 04:00 45 06/07/17 04:00 81 06/07/17 03:36 78 32 95 Full Face 45 06/07/17 02:00 45 06/07/17 00:00 98.6 81 20 111/67 90 Venturi Mask 45 98.6 06/07/17 00:00 97 06/07/17 00:00 45 06/06/17 21:35 94 06/06/17 21:11 89 119/80 06/06/17 20:00 98.4 80 20 119/80 90 98.4 06/06/17 20:00 45 06/06/17 20:00 98.4 89 27 119/80 95 Bi-pap 45 98.4 06/06/17 19:59 101 28 99 Full Face 45 06/06/17 19:58 Bi-pap 45 06/06/17 19:58 95 Venturi Mask 45 06/06/17 18:41 98.4 91 22 113/73 80 Bi-pap 98.4 06/06/17 18:00 113/73 06/06/17 17:30 98.8 98 40 121/73 Nasal Cannula 5.0 98.8 06/06/17 17:30 Nasal Cannula 5.0 06/06/17 16:44 94 06/06/17 16:00 98.4 91 22 113/73 80 Bi-pap 98.4 06/06/17 16:00 77 06/06/17 16:00 45 06/06/17 16:00 45 06/06/17 15:29 81 31 95 Full Face 45 06/06/17 14:00 Nasal Cannula 5.0 06/06/17 14:00 98.4 80 109/71 Nasal Cannula 5.0 98.4 Intake and Output 06/06/17 06/07/17 19:00 07:00 Intake Total 1270 ml 330 ml Output Total 3000 ml Balance -1730 ml 330 ml Intake Oral 1270 ml IV Total 330 ml Output Urine Total 0 ml Stool Total 0 ml Hemodialysis UF 3000 ml # Bowel Movements 4 Laboratory Tests Test 06/07/17 03:30 06/07/17 04:00 06/07/17 08:45 White Blood Count 6.6 K/UL (4.8-10.8) 7.0 K/UL (4.8-10.8) Red Blood Count 2.37 M/UL (4.70-6.10) L 2.49 M/UL (4.70-6.10) L Hemoglobin 6.8 G/DL (14.2-18.0) *L 7.2 G/DL (14.2-18.0) L Hematocrit 21.5 % (42.0-52.0) L 22.6 % (42.0-52.0) L Mean Corpuscular Volume 91 FL (80-99) 91 FL (80-99) Mean Corpuscular Hemoglobin 28.8 PG (27.0-31.0) 29.0 PG (27.0-31.0) Mean Corpuscular Hemoglobin Concent 31.7 G/DL (32.0-36.0) L 32.0 G/DL (32.0-36.0) Red Cell Distribution Width 16.3 % (11.6-14.8) H 16.8 % (11.6-14.8) H Platelet Count 76 K/UL (150-450) L 78 K/UL (150-450) L Mean Platelet Volume 8.4 FL (6.5-10.1) 8.0 FL (6.5-10.1) Neutrophils (%) (Auto) % (45.0-75.0) % (45.0-75.0) Lymphocytes (%) (Auto) % (20.0-45.0) % (20.0-45.0) Monocytes (%) (Auto) % (1.0-10.0) % (1.0-10.0) Eosinophils (%) (Auto) % (0.0-3.0) % (0.0-3.0) Basophils (%) (Auto) % (0.0-2.0) % (0.0-2.0) Differential Total Cells Counted 100 100 Neutrophils % (Manual) 75 % (45-75) 80 % (45-75) H Lymphocytes % (Manual) 9 % (20-45) L 8 % (20-45) L Monocytes % (Manual) 14 % (1-10) H 8 % (1-10) Eosinophils % (Manual) 2 % (0-3) 4 % (0-3) H Basophils % (Manual) 0 % (0-2) 0 % (0-2) Band Neutrophils 0 % (0-8) 0 % (0-8) Platelet Estimate Decreased L Decreased L Platelet Morphology Normal Normal Hypochromasia 4+ 3+ Anisocytosis 1+ 1+ Sodium Level 143 MMOL/L (136-145) Potassium Level 4.0 MMOL/L (3.5-5.1) Chloride Level 102 MMOL/L (98-107) Carbon Dioxide Level 35 MMOL/L (21-32) H Anion Gap 6 mmol/L (5-15) Blood Urea Nitrogen 53 mg/dL (7-18) H Creatinine 8.5 MG/DL (0.55-1.30) H Estimat Glomerular Filtration Rate 7.9 mL/min (>60) Glucose Level 99 MG/DL (74-106) Calcium Level 8.1 MG/DL (8.5-10.1) L Phosphorus Level 5.7 MG/DL (2.5-4.9) H Magnesium Level 1.9 MG/DL (1.8-2.4) Total Bilirubin 0.8 MG/DL (0.2-1.0) Aspartate Amino Transf (AST/SGOT) 13 U/L (15-37) L Alanine Aminotransferase (ALT/SGPT) 25 U/L (12-78) Alkaline Phosphatase 92 U/L (46-116) Pro-B-Type Natriuretic Peptide > 17803 pg/mL (0-125) H Total Protein 5.4 G/DL (6.4-8.2) L Albumin 2.1 G/DL (3.4-5.0) L Globulin 3.3 g/dL Albumin/Globulin Ratio 0.6 (1.0-2.7) L Random Vancomycin Level 18.0 ug/mL M. tuberculosis Complex DNA (PCR) Pending Spherocytes 1+ Iron Level 42 ug/dL (50-175) L Total Iron Binding Capacity 180 ug/dL (250-450) L Percent Iron Saturation 23 % (15-50) Unsaturated Iron Binding 138 ug/dL (112-346) Ferritin 593 NG/ML (8-388) H Vitamin B12 Level 876 PG/ML (193-986) RBC Folate Hemolysate Pending Red Blood Cell Folate Pending Microbiology Date/Time Source Procedure Growth Status 06/04/17 13:40 Blood Blood Culture - Preliminary NO GROWTH AFTER 48 HOURS Resulted 06/04/17 13:30 Blood Blood Culture - Preliminary NO GROWTH AFTER 48 HOURS Resulted 06/05/17 02:55 Sputum Expectorated Gram Stain - Final Complete 06/05/17 02:55 Sputum Expectorated Sputum Culture - Final NORMAL UPPER RESPIRATORY MOHAMUD AT 48 ... Complete PRECIOUS GARCIA Jun 07, 2017 12:50
--- NOTE | 2017-06-07 13:53 | Internal Med Progress Note ---
Subjective Date of Service: Jun 07, 2017 Physician Name Zoey Pires Attending Physician Chaitanya Weinstein MD Current Medications Medications (Trade) Dose Ordered Sig/Jose Route PRN Reason Start Time Stop Time Status Last Admin Dose Admin Acetaminophen (Tylenol) 650 mg Q4H PRN ORAL T>100.5 06/03/17 13:30 07/03/17 13:29 06/05/17 23:24 Albuterol/ Ipratropium (Albuterol/ Ipratropium) 3 ml Q4H PRN HHN Shortness of Breath 06/07/17 09:30 06/12/17 23:59 Alprazolam (Xanax) 2 mg BID ORAL 06/04/17 18:00 06/11/17 17:59 06/07/17 08:31 Alprazolam (Xanax) 2 mg DAILYPRN PRN ORAL For Anxiety 06/04/17 12:00 06/11/17 11:59 06/07/17 01:36 Amlodipine Besylate (Norvasc) 2.5 mg DAILY ORAL 06/08/17 09:00 07/08/17 08:59 Aripiprazole (Abilify) 15 mg DAILY ORAL 06/04/17 09:00 07/04/17 08:59 06/07/17 08:30 Aspirin (ASA) 81 mg DAILY ORAL 06/04/17 09:30 07/04/17 09:29 06/07/17 08:31 Azithromycin 500 mg/Dextrose 275 ml @ 275 mls/hr Q24HRS IV 06/04/17 15:00 06/10/17 15:59 06/06/17 19:39 Bupropion HCl (Wellbutrin) 100 mg BID ORAL 06/03/17 18:00 07/03/17 17:59 06/07/17 08:32 Carisoprodol (Soma) 350 mg BID ORAL 06/04/17 18:00 07/04/17 17:59 06/07/17 08:32 Carisoprodol (Soma) 350 mg Q6H PRN ORAL MUSCLE SPASMS 06/03/17 13:30 07/03/17 13:29 Carvedilol (Coreg) 25 mg EVERY 12 HOURS ORAL 06/04/17 11:30 07/04/17 11:29 06/07/17 08:30 Chlorhexidine Gluconate (Mireille-Hex 2%) 1 applic DAILY@2000 TOPIC 06/05/17 20:00 07/05/17 19:59 06/06/17 21:11 Clonidine HCl (Catapres Tab) 0.1 mg Q4H PRN ORAL bp over 160 syst 06/03/17 16:30 07/03/17 16:29 Dextrose (Dextrose 50%) STAT PRN IV Hypoglycemia 06/03/17 13:30 07/03/17 13:29 Docusate Sodium (Colace) 100 mg THREE TIMES A DAY ORAL 06/03/17 18:00 07/03/17 17:59 06/07/17 08:31 Lisinopril (Prinivil) 20 mg BID ORAL 06/04/17 09:00 07/04/17 08:59 06/05/17 18:02 Morphine Sulfate (Morphine Sulfate) 4 mg Q4H PRN IVP BREAKTHROUGH CHEST PAIN 06/04/17 22:00 06/11/17 21:59 06/06/17 04:26 Nitroglycerin (Ntg) 0.4 mg Q5M PRN SL Prn Chest Pain 06/04/17 09:15 07/04/17 09:14 06/05/17 00:34 Nitroglycerin (Ntg) 1 patch Q24H TDERMAL 06/04/17 11:30 07/04/17 11:29 06/07/17 12:07 Ondansetron HCl (Zofran) 4 mg Q6H PRN IVP Nausea & Vomiting 06/03/17 13:30 07/03/17 13:29 Pantoprazole (Protonix) 40 mg DAILY ORAL 06/03/17 17:00 07/03/17 16:59 06/07/17 08:31 Piperacillin Sod/ Tazobactam Sod 2.25 gm/Sodium Chloride 55 ml @ 110 mls/hr Q8H IVPB 06/07/17 16:00 06/14/17 15:59 Polyethylene Glycol (Miralax) 17 gm DAILYPRN PRN ORAL Constipation 06/03/17 13:30 07/03/17 13:29 Promethazine HCl/ Codeine (Phenergan with Codeine) 5 ml Q4H PRN ORAL For Cough 06/05/17 08:30 07/05/17 08:29 Sevelamer Carbonate (Renvela) 1,600 mg THREE TIMES A DAY ORAL 06/04/17 13:00 07/04/17 12:59 06/07/17 08:30 Temazepam (Restoril) 15 mg HSPRN PRN ORAL Insomnia 06/03/17 21:00 06/10/17 20:59 06/05/17 21:10 Vancomycin HCl (Vanco rx to dose) 1 ea DAILY PRN MISC Per rx protocol 06/04/17 12:45 07/04/17 12:44 Vancomycin HCl/ Dextrose 250 ml @ 125 mls/hr ONCE ONCE IVPB 06/07/17 21:00 06/07/17 22:59 Allergies: Coded Allergies: No Known Allergies (Unverified , 10/24/15) ROS Limited/Unobtainable: Yes Subjective 57 YO M admitted with chest pain and shortness of breath. Now pneumonia and candelaria heart failure. On BIPAP. Cover for Int Med-Dr Weinstein. HIMANSHU Objective Last Vital Signs Date Time Temp Pulse Resp B/P (MAP) Pulse Ox O2 Delivery O2 Flow Rate FiO2 06/07/17 13:33 86 43 92 Full Face 45 06/07/17 12:07 102/58 06/07/17 12:00 98.0 98.0 06/07/17 08:00 55.0 Laboratory Tests Test 06/07/17 03:30 06/07/17 04:00 06/07/17 08:45 White Blood Count 6.6 K/UL (4.8-10.8) 7.0 K/UL (4.8-10.8) Red Blood Count 2.37 M/UL (4.70-6.10) L 2.49 M/UL (4.70-6.10) L Hemoglobin 6.8 G/DL (14.2-18.0) *L 7.2 G/DL (14.2-18.0) L Hematocrit 21.5 % (42.0-52.0) L 22.6 % (42.0-52.0) L Mean Corpuscular Volume 91 FL (80-99) 91 FL (80-99) Mean Corpuscular Hemoglobin 28.8 PG (27.0-31.0) 29.0 PG (27.0-31.0) Mean Corpuscular Hemoglobin Concent 31.7 G/DL (32.0-36.0) L 32.0 G/DL (32.0-36.0) Red Cell Distribution Width 16.3 % (11.6-14.8) H 16.8 % (11.6-14.8) H Platelet Count 76 K/UL (150-450) L 78 K/UL (150-450) L Mean Platelet Volume 8.4 FL (6.5-10.1) 8.0 FL (6.5-10.1) Neutrophils (%) (Auto) % (45.0-75.0) % (45.0-75.0) Lymphocytes (%) (Auto) % (20.0-45.0) % (20.0-45.0) Monocytes (%) (Auto) % (1.0-10.0) % (1.0-10.0) Eosinophils (%) (Auto) % (0.0-3.0) % (0.0-3.0) Basophils (%) (Auto) % (0.0-2.0) % (0.0-2.0) Differential Total Cells Counted 100 100 Neutrophils % (Manual) 75 % (45-75) 80 % (45-75) H Lymphocytes % (Manual) 9 % (20-45) L 8 % (20-45) L Monocytes % (Manual) 14 % (1-10) H 8 % (1-10) Eosinophils % (Manual) 2 % (0-3) 4 % (0-3) H Basophils % (Manual) 0 % (0-2) 0 % (0-2) Band Neutrophils 0 % (0-8) 0 % (0-8) Platelet Estimate Decreased L Decreased L Platelet Morphology Normal Normal Hypochromasia 4+ 3+ Anisocytosis 1+ 1+ Sodium Level 143 MMOL/L (136-145) Potassium Level 4.0 MMOL/L (3.5-5.1) Chloride Level 102 MMOL/L (98-107) Carbon Dioxide Level 35 MMOL/L (21-32) H Anion Gap 6 mmol/L (5-15) Blood Urea Nitrogen 53 mg/dL (7-18) H Creatinine 8.5 MG/DL (0.55-1.30) H Estimat Glomerular Filtration Rate 7.9 mL/min (>60) Glucose Level 99 MG/DL (74-106) Calcium Level 8.1 MG/DL (8.5-10.1) L Phosphorus Level 5.7 MG/DL (2.5-4.9) H Magnesium Level 1.9 MG/DL (1.8-2.4) Total Bilirubin 0.8 MG/DL (0.2-1.0) Aspartate Amino Transf (AST/SGOT) 13 U/L (15-37) L Alanine Aminotransferase (ALT/SGPT) 25 U/L (12-78) Alkaline Phosphatase 92 U/L (46-116) Pro-B-Type Natriuretic Peptide > 03804 pg/mL (0-125) H Total Protein 5.4 G/DL (6.4-8.2) L Albumin 2.1 G/DL (3.4-5.0) L Globulin 3.3 g/dL Albumin/Globulin Ratio 0.6 (1.0-2.7) L Random Vancomycin Level 18.0 ug/mL M. tuberculosis Complex DNA (PCR) Pending Spherocytes 1+ Iron Level 42 ug/dL (50-175) L Total Iron Binding Capacity 180 ug/dL (250-450) L Percent Iron Saturation 23 % (15-50) Unsaturated Iron Binding 138 ug/dL (112-346) Ferritin 593 NG/ML (8-388) H Vitamin B12 Level 876 PG/ML (193-986) RBC Folate Hemolysate Pending Red Blood Cell Folate Pending Microbiology Date/Time Source Procedure Growth Status 06/05/17 02:55 Sputum Expectorated Gram Stain - Final Complete 06/05/17 02:55 Sputum Expectorated Sputum Culture - Final NORMAL UPPER RESPIRATORY MOHAMUD AT 48 ... Complete Intake and Output 06/06/17 06/07/17 19:00 07:00 Intake Total 1270 ml 330 ml Output Total 3000 ml Balance -1730 ml 330 ml Intake Oral 1270 ml IV Total 330 ml Output Urine Total 0 ml Stool Total 0 ml Hemodialysis UF 3000 ml # Bowel Movements 4 Objective General Appearance: WD/WN, alert, moderate distress EENT: PERRL/EOMI, normal ENT inspection Neck: non-tender, normal alignment, supple, normal inspection Cardiovascular: normal peripheral pulses, normal rate, regular rhythm, no gallop/murmur, no JVD Respiratory/Chest: BIPAP; respiratory distress, crackles/rales, rhonchi - bilaterally, expiratory wheezing Abdomen: normal bowel sounds, non tender, soft, no organomegaly, no mass Extremities: normal range of motion 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 ?volume overload? Currently on BIPAP. See pulmonay note. (2) Pleuritic chest pain (3) Hemoptysis Assessment & Plan: Due to pneumonia (4) Pneumonia Assessment & Plan: RUL and cavitary. Concerning for TB. Await AFB cultures- see ID consult. (5) Shortness of breath (6) ESRD (end stage renal disease) on dialysis Assessment & Plan: See nephrology note. Hemodialysis 06/06/17 per nephrology (7) Hyperkalemia Assessment & Plan: Due to renal failure. Hemodialysis 06/06/17 per nephrology (8) COPD (chronic obstructive pulmonary disease) (9) HTN (hypertension) Assessment & Plan: Continue coreg and lisinopril. (10) CHF (congestive heart failure) (11) Elevated troponin Assessment & Plan: ?due to renal failure? See cardiology note. Status: deteriorating ZOEY PIRES Jun 07, 2017 13:53
--- NOTE | 2017-06-07 15:26 | Consultation ---
Consult Note Consult Note Date of service: 06/07/17 REASON FOR ADMISSION: Shortness of breath RFC: Anemia eval IDENTIFICATION: The patient is a pleasant 57-year-old male with past medical history which is significant for end-stage renal disease on hemodialysis, hypertension, asthma, COPD, diabetes mellitus, gallstones history, has missed hemodialysis and noted to be volume overloaded and found to have acute respiratory infection. Chest x-ray was completed, the patient noted to have findings compatible with congestive heart failure, hypoperfusion, cardiomegaly. At this time noted to have a hgb 6.8 and heme service was consulted. PAST MEDICAL HISTORY: As noted above. PAST SURGICAL HISTORY: None noted. SOCIAL HISTORY: No alcohol, tobacco, or illicit drug use. ALLERGIES: No known drug allergies. REVIEW OF SYSTEMS: A 12-point review of systems otherwise negative. PHYSICAL EXAMINATION: GENERAL: No acute distress. VITAL SIGNS: Reviewed. PULMONARY: Decreased breath sounds. CARDIOVASCULAR: Regular rate. No S3 or S4. ABDOMEN: Soft, nontender, and nondistended. EXTREMITIES: A 1+ edema. Laboratory Tests Test 06/07/17 03:30 06/07/17 04:00 06/07/17 08:45 White Blood Count 6.6 K/UL (4.8-10.8) 7.0 K/UL (4.8-10.8) Red Blood Count 2.37 M/UL (4.70-6.10) L 2.49 M/UL (4.70-6.10) L Hemoglobin 6.8 G/DL (14.2-18.0) *L 7.2 G/DL (14.2-18.0) L Hematocrit 21.5 % (42.0-52.0) L 22.6 % (42.0-52.0) L Mean Corpuscular Volume 91 FL (80-99) 91 FL (80-99) Mean Corpuscular Hemoglobin 28.8 PG (27.0-31.0) 29.0 PG (27.0-31.0) Mean Corpuscular Hemoglobin Concent 31.7 G/DL (32.0-36.0) L 32.0 G/DL (32.0-36.0) Red Cell Distribution Width 16.3 % (11.6-14.8) H 16.8 % (11.6-14.8) H Platelet Count 76 K/UL (150-450) L 78 K/UL (150-450) L Mean Platelet Volume 8.4 FL (6.5-10.1) 8.0 FL (6.5-10.1) Neutrophils (%) (Auto) % (45.0-75.0) % (45.0-75.0) Lymphocytes (%) (Auto) % (20.0-45.0) % (20.0-45.0) Monocytes (%) (Auto) % (1.0-10.0) % (1.0-10.0) Eosinophils (%) (Auto) % (0.0-3.0) % (0.0-3.0) Basophils (%) (Auto) % (0.0-2.0) % (0.0-2.0) Differential Total Cells Counted 100 100 Neutrophils % (Manual) 75 % (45-75) 80 % (45-75) H Lymphocytes % (Manual) 9 % (20-45) L 8 % (20-45) L Monocytes % (Manual) 14 % (1-10) H 8 % (1-10) Eosinophils % (Manual) 2 % (0-3) 4 % (0-3) H Basophils % (Manual) 0 % (0-2) 0 % (0-2) Band Neutrophils 0 % (0-8) 0 % (0-8) Platelet Estimate Decreased L Decreased L Platelet Morphology Normal Normal Hypochromasia 4+ 3+ Anisocytosis 1+ 1+ Sodium Level 143 MMOL/L (136-145) Potassium Level 4.0 MMOL/L (3.5-5.1) Chloride Level 102 MMOL/L (98-107) Carbon Dioxide Level 35 MMOL/L (21-32) H Anion Gap 6 mmol/L (5-15) Blood Urea Nitrogen 53 mg/dL (7-18) H Creatinine 8.5 MG/DL (0.55-1.30) H Estimat Glomerular Filtration Rate 7.9 mL/min (>60) Glucose Level 99 MG/DL (74-106) Calcium Level 8.1 MG/DL (8.5-10.1) L Phosphorus Level 5.7 MG/DL (2.5-4.9) H Magnesium Level 1.9 MG/DL (1.8-2.4) Total Bilirubin 0.8 MG/DL (0.2-1.0) Aspartate Amino Transf (AST/SGOT) 13 U/L (15-37) L Alanine Aminotransferase (ALT/SGPT) 25 U/L (12-78) Alkaline Phosphatase 92 U/L (46-116) Pro-B-Type Natriuretic Peptide > 80439 pg/mL (0-125) H Total Protein 5.4 G/DL (6.4-8.2) L Albumin 2.1 G/DL (3.4-5.0) L Globulin 3.3 g/dL Albumin/Globulin Ratio 0.6 (1.0-2.7) L Random Vancomycin Level 18.0 ug/mL M. tuberculosis Complex DNA (PCR) Pending Spherocytes 1+ Iron Level 42 ug/dL (50-175) L Total Iron Binding Capacity 180 ug/dL (250-450) L Percent Iron Saturation 23 % (15-50) Unsaturated Iron Binding 138 ug/dL (112-346) Ferritin 593 NG/ML (8-388) H Vitamin B12 Level 876 PG/ML (193-986) RBC Folate Hemolysate Pending Red Blood Cell Folate Pending ASSESSMENT AND RECS: #. Anemia secondary to chronic disease. Continue to closely monitor. Obtain anemia workup. --> Ferritin is >500, hgb goal is >7 --> Anemia w/u has been reviewed --> Currently no evidence for ongoing bleeding #. Anemia of kidney disease --> HD as needed per nephrology team #. Generalized body ache related to fluid overload. #. End-stage renal disease, on hemodialysis. #. Tachycardia, to be seen by Cardiology Service, isolated T-wave and ST- segment depression in V6. #. Elevated BNP, potentially related to underlying CKD. Irving Parker. Jun 07, 2017 15:26
[2017-06-07] MEDS: Piperacillin/Tazobactam 2.25 GM in NS 55 ML IVPB SCH (15:48)
[2017-06-07] MEDS: Azithromycin 500 MG in D5W 275 ML IV SCH (15:48)
[2017-06-07 16:00] VITALS: BP 133/72
[2017-06-07] MEDS: Morphine Sulfate 4mg/ml Inj IVP PRN (16:42)
[2017-06-07 20:00] VITALS: BP 132/81
[2017-06-07] MEDS: Dyna-Hex 2% Top Sol 2oz TOPIC SCH (20:42)
[2017-06-08] VITALS (9 sets, daily range): BP systolic 114–146; BP diastolic 56–88
[2017-06-08] MEDS: Piperacillin/Tazobactam 2.25 GM in NS 55 ML IVPB SCH ×4 (00:23→23:00)
[2017-06-08 07:25] LABS: HEMATOCRIT 26.6 % (42.0-52.0); HEMOGLOBIN 8.6 G/DL (14.2-18.0); MEAN CORPUSCULAR VOLUME 91 FL (80-99); PLATELET COUNT 81 K/UL (150-450); RED BLOOD COUNT 2.93 M/UL (4.70-6.10); RED CELL DISTRIBUTION WIDTH 16.3 % (11.6-14.8); WHITE BLOOD COUNT 7.3 K/UL (4.8-10.8)
[2017-06-08 07:46] LABS: ANION GAP 6 mmol/L (5-15); BLOOD UREA NITROGEN 60 mg/dL (7-18); CALCIUM 8.8 MG/DL (8.5-10.1); CARBON DIOXIDE 33 MMOL/L (21-32); CHLORIDE 98 MMOL/L (98-107); CREATININE 10.4 MG/DL (0.55-1.30); SODIUM 137 MMOL/L (136-145)
[2017-06-08] MEDS: Morphine Sulfate 4mg/ml Inj IVP PRN (08:48)
[2017-06-08] MEDS: ALPRAZolam 0.5mg tab ORAL SCH ×2 (08:50→18:38)
[2017-06-08] MEDS: Carvedilol 25mg Tab ORAL SCH ×2 (08:50→20:29)
[2017-06-08] MEDS: Docusate 100mg cap ORAL SCH ×3 (08:53→18:39)
[2017-06-08] MEDS: Aspirin Baby 81mg ORAL SCH (08:55)
[2017-06-08] MEDS: Lisinopril 20mg tab ORAL SCH ×2 (08:57→18:00)
--- NOTE | 2017-06-08 12:25 | Nephrology Progress Note ---
Assessment/Plan Problem List: (1) ESRD (end stage renal disease) on dialysis (2) Shortness of breath (3) Anemia Assessment ESRD , missed HD , admitted with high K and pulmonary edema Acute respiratory distress due to volume overload elevated troponin r/o ACS h/o COPD ? exacerbation HTN urgency Cardiomyopathy L AICD anemia of chronic kidney disease Hx of CVA Plan Plan: HD 3/2 next 3/4 Transfused Phos binders BP meds adjustment Optimize cardiac status per orders Subjective ROS Limited/Unobtainable: No Objective Objective Last 24 Hour Vital Signs Date Time Temp Pulse Resp B/P (MAP) Pulse Ox O2 Delivery O2 Flow Rate FiO2 06/08/17 10:49 88 25 97 Full Face 45 06/08/17 09:18 97.7 06/08/17 09:18 97.7 06/08/17 08:57 142/78 06/08/17 08:56 97.7 06/08/17 08:53 95 142/78 06/08/17 08:50 95 142/78 06/08/17 08:49 Nasal Cannula 4.0 36 06/08/17 08:49 94 Nasal Cannula 4.0 36 06/08/17 08:48 97.7 06/08/17 08:00 97.7 95 24 142/78 90 97.7 06/08/17 08:00 88 06/08/17 04:00 76 06/08/17 04:00 98.4 81 20 132/75 97 98.4 06/08/17 02:33 90 22 94 Full Face 55.0 45 06/08/17 00:00 98.1 76 20 128/82 96 98.1 06/08/17 00:00 90 06/07/17 20:42 84 132/81 06/07/17 20:00 98.5 84 22 132/81 94 98.5 06/07/17 20:00 90 06/07/17 19:45 84 29 94 Full Face 45 06/07/17 19:45 Bi-pap 45 06/07/17 19:45 93 Bi-pap 45 06/07/17 18:24 133/72 06/07/17 17:03 84 35 93 Full Face 45 06/07/17 16:00 80 06/07/17 16:00 98.8 80 36 133/72 96 98.8 06/07/17 14:45 81 41 94 Full Face 45 06/07/17 13:33 86 43 92 Full Face 45 Intake and Output 06/07/17 06/08/17 19:00 07:00 Intake Total 1343 ml 235 ml Output Total 2 ml 0 ml Balance 1341 ml 235 ml Intake Oral 480 ml IV Total 363 ml 235 ml Blood Product 500 ml Output Urine Total 2 ml 0 ml # Bowel Movements 3 Laboratory Tests 06/07/17 17:50: Stool Occult Blood [Pending] 06/08/17 05:30: White Blood Count 7.3, Red Blood Count 2.93L, Hemoglobin 8.6L, Hematocrit 26.6L , Mean Corpuscular Volume 91, Mean Corpuscular Hemoglobin 29.3, Mean Corpuscular Hemoglobin Concent 32.3, Red Cell Distribution Width 16.3H, Platelet Count 81L, Mean Platelet Volume 8.3, Neutrophils (%) (Auto) , Lymphocytes (%) (Auto) , Monocytes (%) (Auto) , Eosinophils (%) (Auto) , Basophils (%) (Auto) , Differential Total Cells Counted 100, Neutrophils % ( Manual) 77H, Lymphocytes % (Manual) 8L, Monocytes % (Manual) 12H, Eosinophils % (Manual) 3, Basophils % (Manual) 0, Band Neutrophils 0, Platelet Estimate DecreasedL, Platelet Morphology Normal, Hypochromasia 1+, Anisocytosis 1+, Sodium Level 137, Potassium Level 4.0, Chloride Level 98, Carbon Dioxide Level 33H, Anion Gap 6, Blood Urea Nitrogen 60H, Creatinine 10.4H, Estimat Glomerular Filtration Rate 6.2, Glucose Level 75, Calcium Level 8.8 Height (Feet): 5 Height (Inches): 7.00 Weight (Pounds): 230 General Appearance: no apparent distress Respiratory/Chest: decreased breath sounds Abdomen: soft LIAM MONTELONGO Jun 08, 2017 12:25
--- NOTE | 2017-06-08 12:51 | Pulmonology Progress Note ---
Assessment/Plan Assessment/Plan ASSESSMENT' Acute hypoxemic RF requiring BiPAP Pleuritic chest pain. Elevated troponin Systolic CHF ( recent negative reversible perfusion defect.) cardiomyopathy Necrotizing PNA with cavitating lesion RUL r/o TB pulmonary edema Asthma. End-stage renal disease, on hemodialysis. Hypertensive urgency . Anemia of chronic disease. History of intracardiac defibrillator placement. Prior history of cerebrovascular accident. ESRD on HD thrombocytopenia PLAN OF CARE HIMANSHU BiPAP at HS and prn titrate O2 to keep sat above 92% ABG titrate settings and wean as tolerated Pulmonary toilet CT chest with evidence of necrotizing PNA with cavitary lesion w/up for TB TB spot negative, sputum for MTB by PCR fungal serology HIV negative sputum AFB x 1 negative cardio follows abx for possible PNA sputum cx negative blood cx negative, influenza screen negative BP management wth BB CCB and [facility] medical management for SHF a/tussive prn nephro follows HD as per nephro anemia w/up noted, stool OB pending monitor counts, transfuse prn GI consuklt - dr Goodwin-notified dc Heparin SCD if Venous negative case discussed and evaluated by supervising physician Subjective Allergies: Coded Allergies: No Known Allergies (Unverified , 10/24/15) Subjective on airborne isolation to r/o TB afebrile, no leucocytosis HH better after transfusion Objective Last 24 Hour Vital Signs Date Time Temp Pulse Resp B/P (MAP) Pulse Ox O2 Delivery O2 Flow Rate FiO2 06/08/17 10:49 88 25 97 Full Face 45 06/08/17 09:18 97.7 06/08/17 09:18 97.7 06/08/17 08:57 142/78 06/08/17 08:56 97.7 06/08/17 08:53 95 142/78 06/08/17 08:50 95 142/78 06/08/17 08:49 Nasal Cannula 4.0 36 06/08/17 08:49 94 Nasal Cannula 4.0 36 06/08/17 08:48 97.7 06/08/17 08:00 97.7 95 24 142/78 90 97.7 06/08/17 08:00 88 06/08/17 04:00 76 06/08/17 04:00 98.4 81 20 132/75 97 98.4 06/08/17 02:33 90 22 94 Full Face 55.0 45 06/08/17 00:00 98.1 76 20 128/82 96 98.1 06/08/17 00:00 90 06/07/17 20:42 84 132/81 06/07/17 20:00 98.5 84 22 132/81 94 98.5 06/07/17 20:00 90 06/07/17 19:45 84 29 94 Full Face 45 06/07/17 19:45 Bi-pap 45 06/07/17 19:45 93 Bi-pap 45 06/07/17 18:24 133/72 06/07/17 17:03 84 35 93 Full Face 45 06/07/17 16:00 80 06/07/17 16:00 98.8 80 36 133/72 96 98.8 06/07/17 14:45 81 41 94 Full Face 45 06/07/17 13:33 86 43 92 Full Face 45 Intake and Output 06/07/17 06/08/17 19:00 07:00 Intake Total 1343 ml 235 ml Output Total 2 ml 0 ml Balance 1341 ml 235 ml Intake Oral 480 ml IV Total 363 ml 235 ml Blood Product 500 ml Output Urine Total 2 ml 0 ml # Bowel Movements 3 Objective General Appearance: no acute distress, obese awake, alert, responsive AA male , other - on BiPAP HEENT: normocephalic, atraumatic, anicteric Respiratory/Chest: decreased breath sounds, crackles/rales - few scattered , other - R jugular HD catheter, intact, ICD Lt chest Cardiovascular: normal rate, regular rhythm - SR on tele Abdomen: normal bowel sounds, soft, non tender - obese Extremities: trace edema BLE Neurologic/Psychiatric: alert, responsive Musculoskeletal: normal muscle bulk Microbiology Date/Time Source Procedure Growth Status 06/06/17 11:00 Sputum Gram Stain - Final Resulted 06/06/17 11:00 Sputum Sputum Culture - Preliminary NORMAL UPPER RESPIRATORY MOHAMUD PRESENT Resulted 06/06/17 05:55 Sputum Gram Stain - Final Complete 06/06/17 05:55 Sputum Culture - Final Abby Albicans Usual Upper Respiratory Mohamud Complete 06/05/17 16:30 Sputum AFB Specimen Processing Tissue - Final Resulted 06/05/17 16:30 Sputum Acid Fast Bacilli Smear - Final Resulted 06/05/17 16:30 Sputum Acid Fast Bacilli Culture Pending Resulted Laboratory Tests 06/07/17 17:50: Stool Occult Blood [Pending] 3/4/18 05:30: White Blood Count 7.3, Red Blood Count 2.93L, Hemoglobin 8.6L, Hematocrit 26.6L , Mean Corpuscular Volume 91, Mean Corpuscular Hemoglobin 29.3, Mean Corpuscular Hemoglobin Concent 32.3, Red Cell Distribution Width 16.3H, Platelet Count 81L, Mean Platelet Volume 8.3, Neutrophils (%) (Auto) , Lymphocytes (%) (Auto) , Monocytes (%) (Auto) , Eosinophils (%) (Auto) , Basophils (%) (Auto) , Differential Total Cells Counted 100, Neutrophils % ( Manual) 77H, Lymphocytes % (Manual) 8L, Monocytes % (Manual) 12H, Eosinophils % (Manual) 3, Basophils % (Manual) 0, Band Neutrophils 0, Platelet Estimate DecreasedL, Platelet Morphology Normal, Hypochromasia 1+, Anisocytosis 1+, Sodium Level 137, Potassium Level 4.0, Chloride Level 98, Carbon Dioxide Level 33H, Anion Gap 6, Blood Urea Nitrogen 60H, Creatinine 10.4H, Estimat Glomerular Filtration Rate 6.2, Glucose Level 75, Calcium Level 8.8 Current Medications Medications (Trade) Dose Ordered Sig/Jose Route PRN Reason Start Time Stop Time Status Last Admin Dose Admin Acetaminophen (Tylenol) 650 mg Q4H PRN ORAL T>100.5 06/03/17 13:30 07/03/17 13:29 06/05/17 23:24 Albuterol/ Ipratropium (Albuterol/ Ipratropium) 3 ml Q4H PRN HHN Shortness of Breath 06/07/17 09:30 06/12/17 23:59 Alprazolam (Xanax) 2 mg BID ORAL 06/04/17 18:00 06/11/17 17:59 06/08/17 08:50 Alprazolam (Xanax) 2 mg DAILYPRN PRN ORAL For Anxiety 06/04/17 12:00 06/11/17 11:59 06/07/17 01:36 Amlodipine Besylate (Norvasc) 2.5 mg DAILY ORAL 06/08/17 09:00 07/08/17 08:59 06/08/17 08:53 Aripiprazole (Abilify) 15 mg DAILY ORAL 06/04/17 09:00 07/04/17 08:59 06/08/17 08:56 Aspirin (ASA) 81 mg DAILY ORAL 06/04/17 09:30 07/04/17 09:29 06/08/17 08:55 Azithromycin 500 mg/Dextrose 275 ml @ 275 mls/hr Q24HRS IV 06/04/17 15:00 06/10/17 15:59 06/07/17 15:48 Bupropion HCl (Wellbutrin) 100 mg BID ORAL 06/03/17 18:00 07/03/17 17:59 06/08/17 08:55 Carisoprodol (Soma) 350 mg BID ORAL 06/04/17 18:00 07/04/17 17:59 06/08/17 08:56 Carisoprodol (Soma) 350 mg Q6H PRN ORAL MUSCLE SPASMS 06/03/17 13:30 07/03/17 13:29 Carvedilol (Coreg) 25 mg EVERY 12 HOURS ORAL 06/04/17 11:30 07/04/17 11:29 06/08/17 08:50 Chlorhexidine Gluconate (Mireille-Hex 2%) 1 applic DAILY@2000 TOPIC 06/05/17 20:00 07/05/17 19:59 06/07/17 20:42 Clonidine HCl (Catapres Tab) 0.1 mg Q4H PRN ORAL bp over 160 syst 06/03/17 16:30 07/03/17 16:29 Dextrose (Dextrose 50%) STAT PRN IV Hypoglycemia 06/03/17 13:30 07/03/17 13:29 Docusate Sodium (Colace) 100 mg THREE TIMES A DAY ORAL 06/03/17 18:00 07/03/17 17:59 06/08/17 08:53 Lisinopril (Prinivil) 20 mg BID ORAL 06/04/17 09:00 07/04/17 08:59 06/08/17 08:57 Morphine Sulfate (Morphine Sulfate) 4 mg Q4H PRN IVP BREAKTHROUGH CHEST PAIN 06/04/17 22:00 06/11/17 21:59 06/08/17 08:48 Nitroglycerin (Ntg) 0.4 mg Q5M PRN SL Prn Chest Pain 06/04/17 09:15 07/04/17 09:14 06/05/17 00:34 Nitroglycerin (Ntg) 1 patch Q24H TDERMAL 06/04/17 11:30 07/04/17 11:29 06/07/17 12:07 Ondansetron HCl (Zofran) 4 mg Q6H PRN IVP Nausea & Vomiting 06/03/17 13:30 07/03/17 13:29 Pantoprazole (Protonix) 40 mg DAILY ORAL 06/03/17 17:00 07/03/17 16:59 06/08/17 08:55 Piperacillin Sod/ Tazobactam Sod 2.25 gm/Sodium Chloride 55 ml @ 110 mls/hr Q8H IVPB 06/07/17 16:00 06/14/17 15:59 06/08/17 08:47 Polyethylene Glycol (Miralax) 17 gm DAILYPRN PRN ORAL Constipation 06/03/17 13:30 07/03/17 13:29 Promethazine HCl/ Codeine (Phenergan with Codeine) 5 ml Q4H PRN ORAL For Cough 06/05/17 08:30 07/05/17 08:29 Sevelamer Carbonate (Renvela) 1,600 mg THREE TIMES A DAY ORAL 06/04/17 13:00 07/04/17 12:59 06/08/17 08:51 Temazepam (Restoril) 15 mg HSPRN PRN ORAL Insomnia 06/03/17 21:00 06/10/17 20:59 06/05/17 21:10 Vancomycin HCl (Vanco rx to dose) 1 ea DAILY PRN MISC Per rx protocol 06/04/17 12:45 07/04/17 12:44 Rohan (Tabby)Mariela NP Jun 08, 2017 12:51
--- NOTE | 2017-06-08 13:10 | Cardiology Progress Note ---
Assessment/Plan Assessment/Plan plueritic chest pain neg recent sig perfusion abn; systolic dysfunction on mild degree involving the septum cavitating lung lesion esrd htn anemia icd hx tropn min abn related to esrd likely as no peak no jennifer venou duplex pending will reeorder echo reviewed swma in septum (possible) as tech difficult study ef 45% dialysis per dr grimaldo bp better on lower dose of bp meds Subjective ROS Limited/Unobtainable: Yes Objective Last 24 Hour Vital Signs Date Time Temp Pulse Resp B/P (MAP) Pulse Ox O2 Delivery O2 Flow Rate FiO2 06/08/17 12:55 80 06/08/17 12:00 98.0 98 146/88 98.0 06/08/17 10:49 88 25 97 Full Face 45 06/08/17 09:18 97.7 06/08/17 09:18 97.7 06/08/17 08:57 142/78 06/08/17 08:56 97.7 06/08/17 08:53 95 142/78 06/08/17 08:50 95 142/78 06/08/17 08:49 Nasal Cannula 4.0 36 06/08/17 08:49 94 Nasal Cannula 4.0 36 06/08/17 08:48 97.7 06/08/17 08:00 97.7 95 24 142/78 90 97.7 06/08/17 08:00 88 06/08/17 04:00 76 06/08/17 04:00 98.4 81 20 132/75 97 98.4 06/08/17 02:33 90 22 94 Full Face 55.0 45 06/08/17 00:00 98.1 76 20 128/82 96 98.1 06/08/17 00:00 90 06/07/17 20:42 84 132/81 06/07/17 20:00 98.5 84 22 132/81 94 98.5 06/07/17 20:00 90 06/07/17 19:45 84 29 94 Full Face 45 06/07/17 19:45 Bi-pap 45 06/07/17 19:45 93 Bi-pap 45 06/07/17 18:24 133/72 06/07/17 17:03 84 35 93 Full Face 45 06/07/17 16:00 80 06/07/17 16:00 98.8 80 36 133/72 96 98.8 06/07/17 14:45 81 41 94 Full Face 45 06/07/17 13:33 86 43 92 Full Face 45 General Appearance: other - on bipap Intake and Output 06/07/17 06/08/17 19:00 07:00 Intake Total 1343 ml 235 ml Output Total 2 ml 0 ml Balance 1341 ml 235 ml Intake Oral 480 ml IV Total 363 ml 235 ml Blood Product 500 ml Output Urine Total 2 ml 0 ml # Bowel Movements 3 Laboratory Tests Test 06/07/17 17:50 06/08/17 05:30 Stool Occult Blood Pending White Blood Count 7.3 K/UL (4.8-10.8) Red Blood Count 2.93 M/UL (4.70-6.10) L Hemoglobin 8.6 G/DL (14.2-18.0) L Hematocrit 26.6 % (42.0-52.0) L Mean Corpuscular Volume 91 FL (80-99) Mean Corpuscular Hemoglobin 29.3 PG (27.0-31.0) Mean Corpuscular Hemoglobin Concent 32.3 G/DL (32.0-36.0) Red Cell Distribution Width 16.3 % (11.6-14.8) H Platelet Count 81 K/UL (150-450) L Mean Platelet Volume 8.3 FL (6.5-10.1) Neutrophils (%) (Auto) % (45.0-75.0) Lymphocytes (%) (Auto) % (20.0-45.0) Monocytes (%) (Auto) % (1.0-10.0) Eosinophils (%) (Auto) % (0.0-3.0) Basophils (%) (Auto) % (0.0-2.0) Differential Total Cells Counted 100 Neutrophils % (Manual) 77 % (45-75) H Lymphocytes % (Manual) 8 % (20-45) L Monocytes % (Manual) 12 % (1-10) H Eosinophils % (Manual) 3 % (0-3) Basophils % (Manual) 0 % (0-2) Band Neutrophils 0 % (0-8) Platelet Estimate Decreased L Platelet Morphology Normal Hypochromasia 1+ Anisocytosis 1+ Sodium Level 137 MMOL/L (136-145) Potassium Level 4.0 MMOL/L (3.5-5.1) Chloride Level 98 MMOL/L (98-107) Carbon Dioxide Level 33 MMOL/L (21-32) H Anion Gap 6 mmol/L (5-15) Blood Urea Nitrogen 60 mg/dL (7-18) H Creatinine 10.4 MG/DL (0.55-1.30) H Estimat Glomerular Filtration Rate 6.2 mL/min (>60) Glucose Level 75 MG/DL (74-106) Calcium Level 8.8 MG/DL (8.5-10.1) Microbiology Date/Time Source Procedure Growth Status 06/06/17 11:00 Sputum Gram Stain - Final Resulted 06/06/17 11:00 Sputum Sputum Culture - Preliminary NORMAL UPPER RESPIRATORY MOHAMUD PRESENT Resulted 06/06/17 05:55 Sputum Gram Stain - Final Complete 06/06/17 05:55 Sputum Culture - Final Abby Albicans Usual Upper Respiratory Mohamud Complete 06/05/17 16:30 Sputum AFB Specimen Processing Tissue - Final Resulted 06/05/17 16:30 Sputum Acid Fast Bacilli Smear - Final Resulted 06/05/17 16:30 Sputum Acid Fast Bacilli Culture Pending Resulted PRECIOUS GARCIA Jun 08, 2017 13:10
[2017-06-08] MEDS: Nitroglycerin Patch 0.4mg TDERMAL SCH (13:28)
--- NOTE | 2017-06-08 14:20 | Internal Med Progress Note ---
Subjective Date of Service: Jun 08, 2017 Physician Name Pires,Zoey Attending Physician Chaitanya Weinstein MD Current Medications Medications (Trade) Dose Ordered Sig/Jose Route PRN Reason Start Time Stop Time Status Last Admin Dose Admin Acetaminophen (Tylenol) 650 mg Q4H PRN ORAL T>100.5 06/03/17 13:30 07/03/17 13:29 06/05/17 23:24 Albuterol/ Ipratropium (Albuterol/ Ipratropium) 3 ml Q4H PRN HHN Shortness of Breath 06/07/17 09:30 06/12/17 23:59 Alprazolam (Xanax) 2 mg BID ORAL 06/04/17 18:00 06/11/17 17:59 06/08/17 08:50 Alprazolam (Xanax) 2 mg DAILYPRN PRN ORAL For Anxiety 06/04/17 12:00 06/11/17 11:59 06/07/17 01:36 Amlodipine Besylate (Norvasc) 2.5 mg DAILY ORAL 06/08/17 09:00 07/08/17 08:59 06/08/17 08:53 Aripiprazole (Abilify) 15 mg DAILY ORAL 06/04/17 09:00 07/04/17 08:59 06/08/17 08:56 Aspirin (ASA) 81 mg DAILY ORAL 06/04/17 09:30 07/04/17 09:29 06/08/17 08:55 Azithromycin 500 mg/Dextrose 275 ml @ 275 mls/hr Q24HRS IV 06/04/17 15:00 06/10/17 15:59 06/07/17 15:48 Bupropion HCl (Wellbutrin) 100 mg BID ORAL 06/03/17 18:00 07/03/17 17:59 06/08/17 08:55 Carisoprodol (Soma) 350 mg BID ORAL 06/04/17 18:00 07/04/17 17:59 06/08/17 08:56 Carisoprodol (Soma) 350 mg Q6H PRN ORAL MUSCLE SPASMS 06/03/17 13:30 07/03/17 13:29 Carvedilol (Coreg) 25 mg EVERY 12 HOURS ORAL 06/04/17 11:30 07/04/17 11:29 06/08/17 08:50 Chlorhexidine Gluconate (Mireille-Hex 2%) 1 applic DAILY@2000 TOPIC 06/05/17 20:00 07/05/17 19:59 06/07/17 20:42 Clonidine HCl (Catapres Tab) 0.1 mg Q4H PRN ORAL bp over 160 syst 06/03/17 16:30 07/03/17 16:29 Dextrose (Dextrose 50%) STAT PRN IV Hypoglycemia 06/03/17 13:30 07/03/17 13:29 Docusate Sodium (Colace) 100 mg THREE TIMES A DAY ORAL 06/03/17 18:00 07/03/17 17:59 06/08/17 13:29 Lisinopril (Prinivil) 20 mg BID ORAL 06/04/17 09:00 07/04/17 08:59 06/08/17 08:57 Morphine Sulfate (Morphine Sulfate) 4 mg Q4H PRN IVP BREAKTHROUGH CHEST PAIN 06/04/17 22:00 06/11/17 21:59 06/08/17 08:48 Nitroglycerin (Ntg) 0.4 mg Q5M PRN SL Prn Chest Pain 06/04/17 09:15 07/04/17 09:14 06/05/17 00:34 Nitroglycerin (Ntg) 1 patch Q24H TDERMAL 06/04/17 11:30 07/04/17 11:29 06/08/17 13:28 Ondansetron HCl (Zofran) 4 mg Q6H PRN IVP Nausea & Vomiting 06/03/17 13:30 07/03/17 13:29 Pantoprazole (Protonix) 40 mg DAILY ORAL 06/03/17 17:00 07/03/17 16:59 06/08/17 08:55 Piperacillin Sod/ Tazobactam Sod 2.25 gm/Sodium Chloride 55 ml @ 110 mls/hr Q8H IVPB 06/07/17 16:00 06/14/17 15:59 06/08/17 08:47 Polyethylene Glycol (Miralax) 17 gm DAILYPRN PRN ORAL Constipation 06/03/17 13:30 07/03/17 13:29 Promethazine HCl/ Codeine (Phenergan with Codeine) 5 ml Q4H PRN ORAL For Cough 06/05/17 08:30 07/05/17 08:29 Sevelamer Carbonate (Renvela) 1,600 mg THREE TIMES A DAY ORAL 06/04/17 13:00 07/04/17 12:59 06/08/17 13:29 Temazepam (Restoril) 15 mg HSPRN PRN ORAL Insomnia 06/03/17 21:00 06/10/17 20:59 06/05/17 21:10 Vancomycin HCl (Vanco rx to dose) 1 ea DAILY PRN MISC Per rx protocol 06/04/17 12:45 07/04/17 12:44 Allergies: Coded Allergies: No Known Allergies (Unverified , 10/24/15) ROS Limited/Unobtainable: Yes Subjective 57 YO M admitted with chest pain and shortness of breath. Now pneumonia and candelaria heart failure. On BIPAP. Cover for Int Med-Dr Weinstein. HIMANSHU Objective Last Vital Signs Date Time Temp Pulse Resp B/P (MAP) Pulse Ox O2 Delivery O2 Flow Rate FiO2 06/08/17 13:28 146/88 06/08/17 13:12 77 20 93 Full Face 45 06/08/17 12:00 98.0 98.0 06/08/17 08:49 4.0 Laboratory Tests Test 06/07/17 17:50 06/08/17 05:30 Stool Occult Blood Pending White Blood Count 7.3 K/UL (4.8-10.8) Red Blood Count 2.93 M/UL (4.70-6.10) L Hemoglobin 8.6 G/DL (14.2-18.0) L Hematocrit 26.6 % (42.0-52.0) L Mean Corpuscular Volume 91 FL (80-99) Mean Corpuscular Hemoglobin 29.3 PG (27.0-31.0) Mean Corpuscular Hemoglobin Concent 32.3 G/DL (32.0-36.0) Red Cell Distribution Width 16.3 % (11.6-14.8) H Platelet Count 81 K/UL (150-450) L Mean Platelet Volume 8.3 FL (6.5-10.1) Neutrophils (%) (Auto) % (45.0-75.0) Lymphocytes (%) (Auto) % (20.0-45.0) Monocytes (%) (Auto) % (1.0-10.0) Eosinophils (%) (Auto) % (0.0-3.0) Basophils (%) (Auto) % (0.0-2.0) Differential Total Cells Counted 100 Neutrophils % (Manual) 77 % (45-75) H Lymphocytes % (Manual) 8 % (20-45) L Monocytes % (Manual) 12 % (1-10) H Eosinophils % (Manual) 3 % (0-3) Basophils % (Manual) 0 % (0-2) Band Neutrophils 0 % (0-8) Platelet Estimate Decreased L Platelet Morphology Normal Hypochromasia 1+ Anisocytosis 1+ Sodium Level 137 MMOL/L (136-145) Potassium Level 4.0 MMOL/L (3.5-5.1) Chloride Level 98 MMOL/L (98-107) Carbon Dioxide Level 33 MMOL/L (21-32) H Anion Gap 6 mmol/L (5-15) Blood Urea Nitrogen 60 mg/dL (7-18) H Creatinine 10.4 MG/DL (0.55-1.30) H Estimat Glomerular Filtration Rate 6.2 mL/min (>60) Glucose Level 75 MG/DL (74-106) Calcium Level 8.8 MG/DL (8.5-10.1) C-Reactive Protein, Quantitative 20.0 mg/dL (0.00-0.90) H Microbiology Date/Time Source Procedure Growth Status 06/06/17 11:00 Sputum Gram Stain - Final Resulted 06/06/17 11:00 Sputum Sputum Culture - Preliminary NORMAL UPPER RESPIRATORY MOHAMUD PRESENT Resulted 06/06/17 05:55 Sputum Gram Stain - Final Complete 06/06/17 05:55 Sputum Culture - Final Abby Albicans Usual Upper Respiratory Mohamud Complete 06/05/17 16:30 Sputum AFB Specimen Processing Tissue - Final Resulted 06/05/17 16:30 Sputum Acid Fast Bacilli Smear - Final Resulted 06/05/17 16:30 Sputum Acid Fast Bacilli Culture Pending Resulted Intake and Output 06/07/17 06/08/17 19:00 07:00 Intake Total 1343 ml 235 ml Output Total 2 ml 0 ml Balance 1341 ml 235 ml Intake Oral 480 ml IV Total 363 ml 235 ml Blood Product 500 ml Output Urine Total 2 ml 0 ml # Bowel Movements 3 Objective General Appearance: WD/WN, alert, moderate distress EENT: PERRL/EOMI, normal ENT inspection Neck: non-tender, normal alignment, supple, normal inspection Cardiovascular: normal peripheral pulses, normal rate, regular rhythm, no gallop/murmur, no JVD Respiratory/Chest: BIPAP; respiratory distress, crackles/rales, rhonchi - bilaterally, expiratory wheezing Abdomen: normal bowel sounds, non tender, soft, no organomegaly, no mass Extremities: normal range of motion Neurologic: supervisor rolling room 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 ?volume overload? Currently on BIPAP. See pulmonay note. (2) Pleuritic chest pain (3) Hemoptysis Assessment & Plan: Due to pneumonia (4) Pneumonia Assessment & Plan: RUL and cavitary. Concerning for TB. Await AFB cultures- see ID consult. (5) Shortness of breath (6) ESRD (end stage renal disease) on dialysis Assessment & Plan: See nephrology note. Hemodialysis 06/06/17 per nephrology (7) Hyperkalemia Assessment & Plan: Due to renal failure. Hemodialysis 06/06/17 per nephrology (8) COPD (chronic obstructive pulmonary disease) (9) HTN (hypertension) Assessment & Plan: Continue coreg and lisinopril. (10) CHF (congestive heart failure) (11) Elevated troponin Assessment & Plan: ?due to renal failure? See cardiology note. Status: not improved ZOEY PIRES Jun 08, 2017 14:20
[2017-06-08] MEDS: Azithromycin 500 MG in D5W 275 ML IV SCH (15:53)
--- NOTE | 2017-06-08 16:09 | Infectious Diseases Prog Note ---
Assessment/Plan Assessment/Plan ASSESSMENT: The patient is a 57-year-old male with, Low-grade fever. Status post leukocytosis. Thrombocytopenia. Influenza A and B screen negative. Pneumonia with possible cavitary lesion/hemoptysis. SCx: Neg T-SPOT :Neg AFB x 1 : Neg CT: 7.8 x 5.3 x 6.6 cm dense opacity in the posterior inferior right upper lobe with a central cavitation. Chest x-ray : right mid lung infiltrate, possible cavitation Rule out tuberculosis, fungal infection, or necrotizing pneumonia. CRP 14 Influenza negative HIV : NEG Seizure disorder History of CVA History of pacemaker placement Hyperlipidemia Hypertension COPD/asthma End-stage renal disease, on hemodialysis Diabetes Anxiety Anemia Echo, ejection fraction 45% to 50%. PLAN: Patient on Zosyn, vancomycin day # 5, DC and Zithromax D# 5 sputum culture (bacterial, fungal, and AFB x3). sputum for AFB X 3 AND MTB PCR. Coccidioidal and cryptococcus serology. Galactomannan and Fungitell. Airborne isolation may need BAL , will defer this to Pul team Subjective Allergies: Coded Allergies: No Known Allergies (Unverified , 10/24/15) Subjective no new complain afebrile Objective Vital Signs Last 24 Hour Vital Signs Date Time Temp Pulse Resp B/P (MAP) Pulse Ox O2 Delivery O2 Flow Rate FiO2 06/08/17 16:00 99.0 87 22 136/77 92 Nasal Cannula 4.0 99.0 06/08/17 13:28 146/88 06/08/17 13:12 77 20 93 Full Face 45 06/08/17 12:55 80 06/08/17 12:00 98.0 98 146/88 98.0 06/08/17 10:49 88 25 97 Full Face 45 06/08/17 09:18 97.7 06/08/17 09:18 97.7 06/08/17 08:57 142/78 06/08/17 08:56 97.7 06/08/17 08:53 95 142/78 06/08/17 08:50 95 142/78 06/08/17 08:49 Nasal Cannula 4.0 36 06/08/17 08:49 94 Nasal Cannula 4.0 36 06/08/17 08:48 97.7 06/08/17 08:00 97.7 95 24 142/78 90 97.7 06/08/17 08:00 88 06/08/17 04:00 76 06/08/17 04:00 98.4 81 20 132/75 97 98.4 06/08/17 02:33 90 22 94 Full Face 55.0 45 06/08/17 00:00 98.1 76 20 128/82 96 98.1 06/08/17 00:00 90 06/07/17 20:42 84 132/81 06/07/17 20:00 98.5 84 22 132/81 94 98.5 06/07/17 20:00 90 06/07/17 19:45 84 29 94 Full Face 45 06/07/17 19:45 Bi-pap 45 06/07/17 19:45 93 Bi-pap 45 06/07/17 18:24 133/72 06/07/17 17:03 84 35 93 Full Face 45 Height (Feet): 5 Height (Inches): 7.00 Weight (Pounds): 254 HEENT: anicteric Respiratory/Chest: no respiratory distress Cardiovascular: regular rhythm Abdomen: no organomegaly Microbiology Date/Time Source Procedure Growth Status 06/06/17 11:00 Sputum Gram Stain - Final Resulted 06/06/17 11:00 Sputum Sputum Culture - Preliminary NORMAL UPPER RESPIRATORY MOHAMUD PRESENT Resulted 06/06/17 05:55 Sputum Gram Stain - Final Complete 06/06/17 05:55 Sputum Culture - Final Abby Albicans Usual Upper Respiratory Mohamud Complete 06/05/17 16:30 Sputum AFB Specimen Processing Tissue - Final Resulted 06/05/17 16:30 Sputum Acid Fast Bacilli Smear - Final Resulted 06/05/17 16:30 Sputum Acid Fast Bacilli Culture Pending Resulted Laboratory Tests Test 06/07/17 17:50 06/08/17 05:30 Stool Occult Blood Pending White Blood Count 7.3 K/UL (4.8-10.8) Red Blood Count 2.93 M/UL (4.70-6.10) L Hemoglobin 8.6 G/DL (14.2-18.0) L Hematocrit 26.6 % (42.0-52.0) L Mean Corpuscular Volume 91 FL (80-99) Mean Corpuscular Hemoglobin 29.3 PG (27.0-31.0) Mean Corpuscular Hemoglobin Concent 32.3 G/DL (32.0-36.0) Red Cell Distribution Width 16.3 % (11.6-14.8) H Platelet Count 81 K/UL (150-450) L Mean Platelet Volume 8.3 FL (6.5-10.1) Neutrophils (%) (Auto) % (45.0-75.0) Lymphocytes (%) (Auto) % (20.0-45.0) Monocytes (%) (Auto) % (1.0-10.0) Eosinophils (%) (Auto) % (0.0-3.0) Basophils (%) (Auto) % (0.0-2.0) Differential Total Cells Counted 100 Neutrophils % (Manual) 77 % (45-75) H Lymphocytes % (Manual) 8 % (20-45) L Monocytes % (Manual) 12 % (1-10) H Eosinophils % (Manual) 3 % (0-3) Basophils % (Manual) 0 % (0-2) Band Neutrophils 0 % (0-8) Platelet Estimate Decreased L Platelet Morphology Normal Hypochromasia 1+ Anisocytosis 1+ Sodium Level 137 MMOL/L (136-145) Potassium Level 4.0 MMOL/L (3.5-5.1) Chloride Level 98 MMOL/L (98-107) Carbon Dioxide Level 33 MMOL/L (21-32) H Anion Gap 6 mmol/L (5-15) Blood Urea Nitrogen 60 mg/dL (7-18) H Creatinine 10.4 MG/DL (0.55-1.30) H Estimat Glomerular Filtration Rate 6.2 mL/min (>60) Glucose Level 75 MG/DL (74-106) Calcium Level 8.8 MG/DL (8.5-10.1) C-Reactive Protein, Quantitative 20.0 mg/dL (0.00-0.90) H Current Medications Medications (Trade) Dose Ordered Sig/Jose Route PRN Reason Start Time Stop Time Status Last Admin Dose Admin Acetaminophen (Tylenol) 650 mg Q4H PRN ORAL T>100.5 06/03/17 13:30 07/03/17 13:29 06/05/17 23:24 Albuterol/ Ipratropium (Albuterol/ Ipratropium) 3 ml Q4H PRN HHN Shortness of Breath 06/07/17 09:30 06/12/17 23:59 Alprazolam (Xanax) 2 mg BID ORAL 06/04/17 18:00 06/11/17 17:59 06/08/17 08:50 Alprazolam (Xanax) 2 mg DAILYPRN PRN ORAL For Anxiety 06/04/17 12:00 06/11/17 11:59 06/07/17 01:36 Amlodipine Besylate (Norvasc) 2.5 mg DAILY ORAL 06/08/17 09:00 07/08/17 08:59 06/08/17 08:53 Aripiprazole (Abilify) 15 mg DAILY ORAL 06/04/17 09:00 07/04/17 08:59 06/08/17 08:56 Aspirin (ASA) 81 mg DAILY ORAL 06/04/17 09:30 07/04/17 09:29 06/08/17 08:55 Azithromycin 500 mg/Dextrose 275 ml @ 275 mls/hr Q24HRS IV 06/04/17 15:00 06/10/17 15:59 06/08/17 15:53 Bupropion HCl (Wellbutrin) 100 mg BID ORAL 06/03/17 18:00 07/03/17 17:59 06/08/17 08:55 Carisoprodol (Soma) 350 mg BID ORAL 06/04/17 18:00 07/04/17 17:59 06/08/17 08:56 Carisoprodol (Soma) 350 mg Q6H PRN ORAL MUSCLE SPASMS 06/03/17 13:30 07/03/17 13:29 Carvedilol (Coreg) 25 mg EVERY 12 HOURS ORAL 06/04/17 11:30 07/04/17 11:29 06/08/17 08:50 Chlorhexidine Gluconate (Mireille-Hex 2%) 1 applic DAILY@2000 TOPIC 06/05/17 20:00 07/05/17 19:59 06/07/17 20:42 Clonidine HCl (Catapres Tab) 0.1 mg Q4H PRN ORAL bp over 160 syst 06/03/17 16:30 07/03/17 16:29 Dextrose (Dextrose 50%) STAT PRN IV Hypoglycemia 06/03/17 13:30 07/03/17 13:29 Docusate Sodium (Colace) 100 mg THREE TIMES A DAY ORAL 06/03/17 18:00 07/03/17 17:59 06/08/17 13:29 Lisinopril (Prinivil) 20 mg BID ORAL 06/04/17 09:00 07/04/17 08:59 06/08/17 08:57 Morphine Sulfate (Morphine Sulfate) 4 mg Q4H PRN IVP BREAKTHROUGH CHEST PAIN 06/04/17 22:00 06/11/17 21:59 06/08/17 08:48 Nitroglycerin (Ntg) 0.4 mg Q5M PRN SL Prn Chest Pain 06/04/17 09:15 07/04/17 09:14 06/05/17 00:34 Nitroglycerin (Ntg) 1 patch Q24H TDERMAL 06/04/17 11:30 07/04/17 11:29 06/08/17 13:28 Ondansetron HCl (Zofran) 4 mg Q6H PRN IVP Nausea & Vomiting 06/03/17 13:30 07/03/17 13:29 Pantoprazole (Protonix) 40 mg DAILY ORAL 06/03/17 17:00 07/03/17 16:59 06/08/17 08:55 Piperacillin Sod/ Tazobactam Sod 2.25 gm/Sodium Chloride 55 ml @ 110 mls/hr Q8H IVPB 06/07/17 16:00 06/14/17 15:59 06/08/17 08:47 Polyethylene Glycol (Miralax) 17 gm DAILYPRN PRN ORAL Constipation 06/03/17 13:30 07/03/17 13:29 Promethazine HCl/ Codeine (Phenergan with Codeine) 5 ml Q4H PRN ORAL For Cough 06/05/17 08:30 07/05/17 08:29 Sevelamer Carbonate (Renvela) 1,600 mg THREE TIMES A DAY ORAL 06/04/17 13:00 07/04/17 12:59 06/08/17 13:29 Temazepam (Restoril) 15 mg HSPRN PRN ORAL Insomnia 06/03/17 21:00 06/10/17 20:59 06/05/17 21:10 Vancomycin HCl (Vanco rx to dose) 1 ea DAILY PRN MISC Per rx protocol 06/04/17 12:45 07/04/17 12:44 PREET GUAJARDO M.D. Jun 08, 2017 16:09
[2017-06-08] MEDS ORDERED: Tubing IV Secondary IV ONE (16:48)
[2017-06-08] MEDS ORDERED: Tubing Blood Filter IV ONE ×2 (16:48→17:20)
[2017-06-08] MEDS ORDERED: NS 275ml ONE ×2 (16:48→17:20)
--- NOTE | 2017-06-08 17:00 | Consultation ---
DATE OF CONSULTATION: 06/08/2017 CHIEF COMPLAINT: Anemia. HISTORY OF PRESENT ILLNESS: The patient currently in the step down with the fever. He is 57-year-old male with multiple medical problems including end-stage renal disease on hemodialysis, hypertension, asthma, COPD, and diabetes, admitted to hospital with anemia and shortness of breath. GI consult was requested for evaluation of anemia. PAST MEDICAL HISTORY: 1. Diabetes. 2. Hypertension. 3. End-stage renal disease, on hemodialysis. 4. COPD/asthma. 5. Gallstones. PAST SURGICAL HISTORY: Hemodialysis catheter placement. MEDICATIONS: Please see medication reconciliation list. ALLERGIES: No known drug allergies. SOCIAL HISTORY: The patient denies any tobacco, alcohol, or drug abuse. FAMILY HISTORY: Noncontributory. REVIEW OF SYSTEMS: A 10-point review of systems was performed and pertinent positives in history of present illness. PHYSICAL EXAMINATION: VITAL SIGNS: Temperature is 97.7 degrees, pulse 91, respirations 20, and blood pressure is 142/78. HEENT: Normocephalic and atraumatic. Mild pale conjunctivae. NECK: Supple. No lymphadenopathy. CARDIOVASCULAR: Regular rhythm. Plus S1 and S2. LUNGS: Decreased breath sounds bilaterally. ABDOMEN: Soft and nontender. No rebound. No guarding. No peritoneal signs. EXTREMITIES: No cyanosis. No clubbing. No edema. LABORATORY AND DIAGNOSTIC DATA: White count 7.3, hemoglobin 8.6, hemoglobin as low as 5.9 at the time of admission, and platelet count is 81. Chem-7, sodium 137, potassium 4.0, BUN 60 and creatinine is 10.4. ASSESSMENT AND PLAN: 1. Anemia without any obvious gastrointestinal bleeding. 2. Thrombocytopenia. 3. End-stage renal disease. 4. Chronic obstructive pulmonary disease, asthma. 5. Diabetes. PLAN: Send the stool for OB. Monitor hemoglobin and hematocrit. Transfuse as needed with hemodialysis. The patient endoscopy and colonoscopy, but when more stable. Currently, the patient is on isolation for rule out TB. We will recommend followup on daily basis and make further recommendation as we go along. Rashawn Ashton M.D. DR: WILMA JOB#: [id number] CC:
[2017-06-08] MEDS ORDERED: NS 500ML ONE (17:20)
[2017-06-08] MEDS: Dyna-Hex 2% Top Sol 2oz TOPIC SCH (20:28)
[2017-06-09] VITALS (10 sets, daily range): BP systolic 107–129; BP diastolic 61–88
--- NOTE | 2017-06-09 | General Progress Note ---
Assessment/Plan Assessment/Plan #. Anemia secondary to chronic disease. --> S/P PRBC as hemoglobin levels fell low. Now hgb at 8.6 --> Continue to closely monitor. --> Anemia workup completed and reviewed. Iron 42, TIBC 180, Ferritin 593, B12 876. --> Ferritin is >500, hgb goal is >7 --> Anemia w/u has been reviewed --> Currently no evidence for ongoing bleeding #. Anemia of kidney disease --> HD as needed per nephrology team --> Monitor closely. #. Generalized body ache related to fluid overload. #. End-stage renal disease, on hemodialysis. #. Tachycardia, to be seen by Cardiology Service, isolated T-wave and ST- segment depression in V6. #. Elevated BNP, potentially related to underlying CKD. Subjective Date patient seen: Jun 08, 2017 Constitutional: Denies: no symptoms, chills, diaphoresis, fever, malaise, weakness, other HEENT: Denies: no symptoms, eye pain, blurred vision, tearing, double vision, ear pain, ear discharge, nose pain, nose congestion, throat pain, throat swelling, mouth pain, mouth swelling, other Cardiovascular: Denies: no symptoms, chest pain, edema, irregular heart rate, lightheadedness, palpitations, syncope, other Respiratory: Denies: no symptoms, cough, orthopnea, shortness of breath, SOB with excertion, SOB at rest, sputum, stridor, wheezing, other Gastrointestinal/Abdominal: Denies: no symptoms, abdomen distended, abdominal pain, black stools, tarry stools, blood in stool, constipated, diarrhea, difficulty swallowing, nausea, poor appetite, poor fluid intake, rectal bleeding , vomiting, other Genitourinary: Denies: no symptoms, burning, discharge, frequency, flank pain, hematuria, incontinence, pain, urgency, other Hematologic/Lymphatic: Reports: anemia Allergies: Coded Allergies: No Known Allergies (Unverified , 10/24/15) Subjective S/P PRBC. No acute events. On pain control. Objective Last 24 Hour Vital Signs Date Time Temp Pulse Resp B/P (MAP) Pulse Ox O2 Delivery O2 Flow Rate FiO2 06/08/17 23:02 87 28 99 Full Face 45 06/08/17 22:51 100.1 06/08/17 21:56 93 20 Nasal Cannula 4.0 36 06/08/17 21:54 Nasal Cannula 4.0 36 06/08/17 21:54 96 Bi-pap 45 06/08/17 20:40 99.9 94 28 121/66 Nasal Cannula 5.0 99.9 06/08/17 20:40 Nasal Cannula 5.0 06/08/17 20:29 94 120/64 06/08/17 20:09 99.9 94 38 121/56 95 Nasal Cannula 99.9 06/08/17 20:00 99.7 94 20 124/64 96 Nasal Cannula 4.0 99.7 06/08/17 20:00 94 06/08/17 19:33 99.0 06/08/17 18:40 99.0 06/08/17 18:00 136/77 06/08/17 17:00 Nasal Cannula 5.0 06/08/17 17:00 99.3 87 28 114/66 Nasal Cannula 5.0 99.3 06/08/17 16:00 83 06/08/17 16:00 99.0 87 22 136/77 92 Nasal Cannula 4.0 99.0 06/08/17 13:28 146/88 06/08/17 13:12 77 20 93 Full Face 45 06/08/17 12:55 80 06/08/17 12:00 98.0 98 146/88 98.0 06/08/17 10:49 88 25 97 Full Face 45 06/08/17 09:18 97.7 06/08/17 08:57 142/78 06/08/17 08:56 97.7 06/08/17 08:53 95 142/78 06/08/17 08:50 95 142/78 06/08/17 08:49 Nasal Cannula 4.0 36 06/08/17 08:49 94 Nasal Cannula 4.0 36 06/08/17 08:48 97.7 06/08/17 08:00 97.7 95 24 142/78 90 97.7 06/08/17 08:00 88 06/08/17 04:00 76 06/08/17 04:00 98.4 81 20 132/75 97 98.4 06/08/17 02:33 90 22 94 Full Face 55.0 45 06/08/17 00:00 98.1 76 20 128/82 96 98.1 06/08/17 00:00 90 Intake and Output 06/07/17 06/08/17 19:00 07:00 Intake Total 1343 ml 235 ml Output Total 2 ml 0 ml Balance 1341 ml 235 ml Intake Oral 480 ml IV Total 363 ml 235 ml Blood Product 500 ml Output Urine Total 2 ml 0 ml # Bowel Movements 3 Laboratory Tests 06/08/17 05:30: White Blood Count 7.3, Red Blood Count 2.93L, Hemoglobin 8.6L, Hematocrit 26.6L , Mean Corpuscular Volume 91, Mean Corpuscular Hemoglobin 29.3, Mean Corpuscular Hemoglobin Concent 32.3, Red Cell Distribution Width 16.3H, Platelet Count 81L, Mean Platelet Volume 8.3, Neutrophils (%) (Auto) , Lymphocytes (%) (Auto) , Monocytes (%) (Auto) , Eosinophils (%) (Auto) , Basophils (%) (Auto) , Differential Total Cells Counted 100, Neutrophils % ( Manual) 77H, Lymphocytes % (Manual) 8L, Monocytes % (Manual) 12H, Eosinophils % (Manual) 3, Basophils % (Manual) 0, Band Neutrophils 0, Platelet Estimate DecreasedL, Platelet Morphology Normal, Hypochromasia 1+, Anisocytosis 1+, Sodium Level 137, Potassium Level 4.0, Chloride Level 98, Carbon Dioxide Level 33H, Anion Gap 6, Blood Urea Nitrogen 60H, Creatinine 10.4H, Estimat Glomerular Filtration Rate 6.2, Glucose Level 75, Calcium Level 8.8, C-Reactive Protein, Quantitative 20.0H Height (Feet): 5 Height (Inches): 7.00 Weight (Pounds): 254 General Appearance: no apparent distress Respiratory/Chest: decreased breath sounds Abdomen: non tender, soft Edema: trace edema Irving Parker Jun 09, 2017 00:00
[2017-06-09] MEDS: Morphine Sulfate 4mg/ml Inj IVP PRN ×2 (01:21→06:24)
[2017-06-09 07:20] LABS: HEMATOCRIT 25.6 % (42.0-52.0); HEMOGLOBIN 8.3 G/DL (14.2-18.0); MEAN CORPUSCULAR VOLUME 92 FL (80-99); PLATELET COUNT 85 K/UL (150-450); RED BLOOD COUNT 2.78 M/UL (4.70-6.10); RED CELL DISTRIBUTION WIDTH 16.7 % (11.6-14.8); WHITE BLOOD COUNT 6.4 K/UL (4.8-10.8)
[2017-06-09 07:45] LABS: ALANINE AMINOTRANSFERASE 21 U/L (12-78); ALBUMIN 2.2 G/DL (3.4-5.0); ALBUMIN/GLOBULIN RATIO 0.6 (1.0-2.7); ALKALINE PHOSPHATASE 121 U/L (46-116); ANION GAP 7 mmol/L (5-15); ASPARTATE AMINO TRANSFERASE 13 U/L (15-37); BILIRUBIN,TOTAL 0.9 MG/DL (0.2-1.0); BLOOD UREA NITROGEN 45 mg/dL (7-18); CALCIUM 8.7 MG/DL (8.5-10.1); CARBON DIOXIDE 36 MMOL/L (21-32); CHLORIDE 100 MMOL/L (98-107); POTASSIUM 3.7 MMOL/L (3.5-5.1); SODIUM 143 MMOL/L (136-145)
[2017-06-09 07:50] LABS: GAMMA GLUTAMYL TRANSPEPTIDASE 155 U/L (5-85)
[2017-06-09] MEDS: Piperacillin/Tazobactam 2.25 GM in NS 55 ML IVPB SCH ×3 (09:11→23:59)
[2017-06-09] MEDS: ALPRAZolam 0.5mg tab ORAL SCH ×2 (09:12→18:00)
[2017-06-09] MEDS: Carvedilol 25mg Tab ORAL SCH ×2 (09:14→20:34)
[2017-06-09] MEDS: Lisinopril 20mg tab ORAL SCH ×2 (09:14→18:00)
[2017-06-09] MEDS: Aspirin Baby 81mg ORAL SCH (09:14)
[2017-06-09] MEDS: Docusate 100mg cap ORAL SCH ×3 (09:15→18:00)
--- NOTE | 2017-06-09 11:25 | Nephrology Progress Note ---
Assessment/Plan Problem List: (1) ESRD (end stage renal disease) on dialysis (2) Shortness of breath (3) Anemia Assessment ESRD , missed HD , admitted with high K and pulmonary edema Acute respiratory distress due to volume overload elevated troponin r/o ACS h/o COPD ? exacerbation HTN urgency Cardiomyopathy L AICD anemia of chronic kidney disease Hx of CVA Plan Plan: HD next 3/6 Transfused Phos binders BP meds adjustment Optimize cardiac status per orders Subjective ROS Limited/Unobtainable: No Constitutional: Reports: malaise Objective Objective Last 24 Hour Vital Signs Date Time Temp Pulse Resp B/P (MAP) Pulse Ox O2 Delivery O2 Flow Rate FiO2 06/09/17 10:13 98.8 06/09/17 09:14 98.8 06/09/17 09:14 103 123/75 06/09/17 09:14 123/75 06/09/17 09:13 102 123/75 06/09/17 08:00 100.4 102 22 123/75 Nasal Cannula 100.4 06/09/17 08:00 105 06/09/17 07:50 Nasal Cannula 5.0 40 06/09/17 07:50 94 Nasal Cannula 5.0 40 06/09/17 06:54 98.8 06/09/17 06:24 98.8 06/09/17 04:11 98.8 84 18 123/75 95 Nasal Cannula 98.8 06/09/17 04:00 82 06/09/17 04:00 97.7 80 20 114/86 96 Nasal Cannula 5.0 97.7 06/09/17 02:00 98.5 82 20 117/88 96 Nasal Cannula 5.0 98.5 06/09/17 01:21 98.9 06/09/17 00:01 98.9 79 20 129/76 91 Bi-pap 98.9 06/09/17 00:00 98.5 82 20 117/88 96 Nasal Cannula 5.0 98.5 06/09/17 00:00 86 06/08/17 23:50 97.5 06/08/17 23:02 87 28 99 Full Face 45 06/08/17 22:51 100.1 06/08/17 21:56 93 20 Nasal Cannula 4.0 36 06/08/17 21:54 Nasal Cannula 4.0 36 06/08/17 21:54 96 Bi-pap 45 06/08/17 20:40 99.9 94 28 121/66 Nasal Cannula 5.0 99.9 06/08/17 20:40 Nasal Cannula 5.0 06/08/17 20:29 94 120/64 06/08/17 20:09 99.9 94 38 121/56 95 Nasal Cannula 99.9 06/08/17 20:00 99.7 94 20 124/64 96 Nasal Cannula 4.0 99.7 06/08/17 20:00 94 06/08/17 18:40 99.0 06/08/17 18:00 136/77 06/08/17 17:00 Nasal Cannula 5.0 06/08/17 17:00 99.3 87 28 114/66 Nasal Cannula 5.0 99.3 06/08/17 16:00 83 06/08/17 16:00 99.0 87 22 136/77 92 Nasal Cannula 4.0 99.0 06/08/17 13:28 146/88 06/08/17 13:12 77 20 93 Full Face 45 06/08/17 12:55 80 06/08/17 12:00 98.0 98 146/88 98.0 Intake and Output 06/08/17 06/09/17 19:00 07:00 Intake Total 810 ml 110 ml Output Total 3000 ml Balance 810 ml -2890 ml Intake Oral 480 ml IV Total 330 ml 110 ml Hemodialysis UF 3000 ml Laboratory Tests 06/09/17 05:00: White Blood Count 6.4, Red Blood Count 2.78L, Hemoglobin 8.3L, Hematocrit 25.6L , Mean Corpuscular Volume 92, Mean Corpuscular Hemoglobin 29.7, Mean Corpuscular Hemoglobin Concent 32.4, Red Cell Distribution Width 16.7H, Platelet Count 85L, Mean Platelet Volume 8.1, Neutrophils (%) (Auto) , Lymphocytes (%) (Auto) , Monocytes (%) (Auto) , Eosinophils (%) (Auto) , Basophils (%) (Auto) , Differential Total Cells Counted 100, Neutrophils % ( Manual) 70, Lymphocytes % (Manual) 13L, Monocytes % (Manual) 13H, Eosinophils % (Manual) 4H, Basophils % (Manual) 0, Band Neutrophils 0, Platelet Estimate DecreasedL, Platelet Morphology Normal, Anisocytosis 1+, Sodium Level 143, Potassium Level 3.7, Chloride Level 100, Carbon Dioxide Level 36H, Anion Gap 7, Blood Urea Nitrogen 45H, Creatinine 9.0H, Estimat Glomerular Filtration Rate 7.4 , Glucose Level 74, Calcium Level 8.7, Phosphorus Level 6.0H, Magnesium Level 1.9, Total Bilirubin 0.9, Gamma Glutamyl Transpeptidase 155H, Aspartate Amino Transf (AST/SGOT) 13L, Alanine Aminotransferase (ALT/SGPT) 21, Alkaline Phosphatase 121H, Pro-B-Type Natriuretic Peptide > 11942K, Total Protein 6.2L, Albumin 2.2L, Globulin 4.0, Albumin/Globulin Ratio 0.6L, Random Vancomycin Level 24.1 Height (Feet): 5 Height (Inches): 7.00 Weight (Pounds): 214 General Appearance: no apparent distress Objective no change LIAM MONTELONGO 5, 2018 11:25
[2017-06-09] MEDS: Nitroglycerin Patch 0.4mg TDERMAL SCH (12:00)
--- NOTE | 2017-06-09 12:03 | Pulmonology Progress Note ---
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 continue abx hold heparin for low PLT f/u wbc and cultures, Lab in am Subjective ROS Limited/Unobtainable: No Constitutional: Reports: no symptoms HEENT: Repors: no symptoms Respiratory: Reports: no symptoms Allergies: Coded Allergies: No Known Allergies (Unverified , 10/24/15) Objective Last 24 Hour Vital Signs Date Time Temp Pulse Resp B/P (MAP) Pulse Ox O2 Delivery O2 Flow Rate FiO2 06/09/17 12:00 123/75 06/09/17 10:13 98.8 06/09/17 09:14 98.8 06/09/17 09:14 103 123/75 06/09/17 09:14 123/75 06/09/17 09:13 102 123/75 06/09/17 08:00 100.4 102 22 123/75 Nasal Cannula 100.4 06/09/17 08:00 105 06/09/17 07:50 Nasal Cannula 5.0 40 06/09/17 07:50 94 Nasal Cannula 5.0 40 06/09/17 06:54 98.8 06/09/17 06:24 98.8 06/09/17 04:11 98.8 84 18 123/75 95 Nasal Cannula 98.8 06/09/17 04:00 82 06/09/17 04:00 97.7 80 20 114/86 96 Nasal Cannula 5.0 97.7 06/09/17 02:00 98.5 82 20 117/88 96 Nasal Cannula 5.0 98.5 06/09/17 01:21 98.9 06/09/17 00:01 98.9 79 20 129/76 91 Bi-pap 98.9 06/09/17 00:00 98.5 82 20 117/88 96 Nasal Cannula 5.0 98.5 06/09/17 00:00 86 06/08/17 23:50 97.5 06/08/17 23:02 87 28 99 Full Face 45 06/08/17 22:51 100.1 06/08/17 21:56 93 20 Nasal Cannula 4.0 36 06/08/17 21:54 Nasal Cannula 4.0 36 06/08/17 21:54 96 Bi-pap 45 06/08/17 20:40 99.9 94 28 121/66 Nasal Cannula 5.0 99.9 06/08/17 20:40 Nasal Cannula 5.0 06/08/17 20:29 94 120/64 06/08/17 20:09 99.9 94 38 121/56 95 Nasal Cannula 99.9 06/08/17 20:00 99.7 94 20 124/64 96 Nasal Cannula 4.0 99.7 06/08/17 20:00 94 06/08/17 18:40 99.0 06/08/17 18:00 136/77 06/08/17 17:00 Nasal Cannula 5.0 06/08/17 17:00 99.3 87 28 114/66 Nasal Cannula 5.0 99.3 06/08/17 16:00 83 06/08/17 16:00 99.0 87 22 136/77 92 Nasal Cannula 4.0 99.0 06/08/17 13:28 146/88 06/08/17 13:12 77 20 93 Full Face 45 06/08/17 12:55 80 Intake and Output 06/08/17 06/09/17 19:00 07:00 Intake Total 810 ml 110 ml Output Total 3000 ml Balance 810 ml -2890 ml Intake Oral 480 ml IV Total 330 ml 110 ml Hemodialysis UF 3000 ml General Appearance: WD/WN HEENT: normocephalic, atraumatic Respiratory/Chest: chest wall non-tender, lungs clear Cardiovascular: normal peripheral pulses, normal rate Abdomen: normal bowel sounds, no organomegaly Genitourinary: normal external genitalia Extremities: no cyanosis, no clubbing Skin: no lesions, no ulcers Microbiology Date/Time Source Procedure Growth Status 06/07/17 04:00 Sputum AFB Specimen Processing Tissue - Final Resulted 06/07/17 04:00 Sputum Acid Fast Bacilli Smear - Final Resulted 06/07/17 04:00 Sputum Acid Fast Bacilli Culture Pending Resulted Laboratory Tests 06/09/17 05:00: White Blood Count 6.4, Red Blood Count 2.78L, Hemoglobin 8.3L, Hematocrit 25.6L , Mean Corpuscular Volume 92, Mean Corpuscular Hemoglobin 29.7, Mean Corpuscular Hemoglobin Concent 32.4, Red Cell Distribution Width 16.7H, Platelet Count 85L, Mean Platelet Volume 8.1, Neutrophils (%) (Auto) , Lymphocytes (%) (Auto) , Monocytes (%) (Auto) , Eosinophils (%) (Auto) , Basophils (%) (Auto) , Differential Total Cells Counted 100, Neutrophils % ( Manual) 70, Lymphocytes % (Manual) 13L, Monocytes % (Manual) 13H, Eosinophils % (Manual) 4H, Basophils % (Manual) 0, Band Neutrophils 0, Platelet Estimate DecreasedL, Platelet Morphology Normal, Anisocytosis 1+, Sodium Level 143, Potassium Level 3.7, Chloride Level 100, Carbon Dioxide Level 36H, Anion Gap 7, Blood Urea Nitrogen 45H, Creatinine 9.0H, Estimat Glomerular Filtration Rate 7.4 , Glucose Level 74, Calcium Level 8.7, Phosphorus Level 6.0H, Magnesium Level 1.9, Total Bilirubin 0.9, Gamma Glutamyl Transpeptidase 155H, Aspartate Amino Transf (AST/SGOT) 13L, Alanine Aminotransferase (ALT/SGPT) 21, Alkaline Phosphatase 121H, C-Reactive Protein, Quantitative 18.0H, Pro-B-Type Natriuretic Peptide > 61250A, Total Protein 6.2L, Albumin 2.2L, Globulin 4.0, Albumin/Globulin Ratio 0.6L, Random Vancomycin Level 24.1 Current Medications Medications (Trade) Dose Ordered Sig/Jose Route PRN Reason Start Time Stop Time Status Last Admin Dose Admin Acetaminophen (Tylenol) 650 mg Q4H PRN ORAL T>100.5 06/03/17 13:30 07/03/17 13:29 06/08/17 22:51 Albuterol/ Ipratropium (Albuterol/ Ipratropium) 3 ml Q4H PRN HHN Shortness of Breath 06/07/17 09:30 06/12/17 23:59 Alprazolam (Xanax) 2 mg BID ORAL 06/04/17 18:00 06/11/17 17:59 06/09/17 09:12 Alprazolam (Xanax) 2 mg DAILYPRN PRN ORAL For Anxiety 06/04/17 12:00 06/11/17 11:59 06/07/17 01:36 Amlodipine Besylate (Norvasc) 2.5 mg DAILY ORAL 06/08/17 09:00 07/08/17 08:59 06/09/17 09:13 Aripiprazole (Abilify) 15 mg DAILY ORAL 06/04/17 09:00 07/04/17 08:59 06/09/17 09:15 Aspirin (ASA) 81 mg DAILY ORAL 06/04/17 09:30 07/04/17 09:29 06/09/17 09:14 Azithromycin 500 mg/Dextrose 275 ml @ 275 mls/hr Q24HRS IV 06/04/17 15:00 06/10/17 15:59 06/08/17 15:53 Bupropion HCl (Wellbutrin) 100 mg BID ORAL 06/03/17 18:00 07/03/17 17:59 06/09/17 09:15 Carisoprodol (Soma) 350 mg BID ORAL 06/04/17 18:00 07/04/17 17:59 06/09/17 09:14 Carisoprodol (Soma) 350 mg Q6H PRN ORAL MUSCLE SPASMS 06/03/17 13:30 07/03/17 13:29 Carvedilol (Coreg) 25 mg EVERY 12 HOURS ORAL 06/04/17 11:30 07/04/17 11:29 06/09/17 09:14 Chlorhexidine Gluconate (Mireille-Hex 2%) 1 applic DAILY@2000 TOPIC 06/05/17 20:00 07/05/17 19:59 06/08/17 20:28 Clonidine HCl (Catapres Tab) 0.1 mg Q4H PRN ORAL bp over 160 syst 06/03/17 16:30 07/03/17 16:29 Dextrose (Dextrose 50%) STAT PRN IV Hypoglycemia 06/03/17 13:30 07/03/17 13:29 Docusate Sodium (Colace) 100 mg THREE TIMES A DAY ORAL 06/03/17 18:00 07/03/17 17:59 06/09/17 09:15 Lisinopril (Prinivil) 20 mg BID ORAL 06/04/17 09:00 07/04/17 08:59 06/09/17 09:14 Morphine Sulfate (Morphine Sulfate) 4 mg Q4H PRN IVP BREAKTHROUGH CHEST PAIN 06/04/17 22:00 06/11/17 21:59 06/09/17 06:24 Nitroglycerin (Ntg) 0.4 mg Q5M PRN SL Prn Chest Pain 06/04/17 09:15 07/04/17 09:14 06/05/17 00:34 Nitroglycerin (Ntg) 1 patch Q24H TDERMAL 06/04/17 11:30 07/04/17 11:29 06/09/17 12:00 Ondansetron HCl (Zofran) 4 mg Q6H PRN IVP Nausea & Vomiting 06/03/17 13:30 07/03/17 13:29 Pantoprazole (Protonix) 40 mg DAILY ORAL 06/03/17 17:00 07/03/17 16:59 06/09/17 09:12 Piperacillin Sod/ Tazobactam Sod 2.25 gm/Sodium Chloride 55 ml @ 110 mls/hr Q8H IVPB 06/07/17 16:00 06/14/17 15:59 06/09/17 09:11 Polyethylene Glycol (Miralax) 17 gm DAILYPRN PRN ORAL Constipation 06/03/17 13:30 07/03/17 13:29 Promethazine HCl/ Codeine (Phenergan with Codeine) 5 ml Q4H PRN ORAL For Cough 06/05/17 08:30 07/05/17 08:29 Sevelamer Carbonate (Renvela) 2,400 mg THREE TIMES A DAY ORAL 06/09/17 13:00 07/09/17 12:59 Temazepam (Restoril) 15 mg HSPRN PRN ORAL Insomnia 06/03/17 21:00 06/10/17 20:59 06/05/17 21:10 Vancomycin HCl (Vanco rx to dose) 1 ea DAILY PRN MISC Per rx protocol 06/04/17 12:45 07/04/17 12:44 MAICO SYED Jun 09, 2017 12:03
--- NOTE | 2017-06-09 12:20 | Internal Med Progress Note ---
Subjective Date of Service: Jun 09, 2017 Physician Name Pires,Zoey Attending Physician Chaitanya Weinstein MD Current Medications Medications (Trade) Dose Ordered Sig/Jose Route PRN Reason Start Time Stop Time Status Last Admin Dose Admin Acetaminophen (Tylenol) 650 mg Q4H PRN ORAL T>100.5 06/03/17 13:30 07/03/17 13:29 06/08/17 22:51 Albuterol/ Ipratropium (Albuterol/ Ipratropium) 3 ml Q4H PRN HHN Shortness of Breath 06/07/17 09:30 06/12/17 23:59 Alprazolam (Xanax) 2 mg BID ORAL 06/04/17 18:00 06/11/17 17:59 06/09/17 09:12 Alprazolam (Xanax) 2 mg DAILYPRN PRN ORAL For Anxiety 06/04/17 12:00 06/11/17 11:59 06/07/17 01:36 Amlodipine Besylate (Norvasc) 2.5 mg DAILY ORAL 06/08/17 09:00 07/08/17 08:59 06/09/17 09:13 Aripiprazole (Abilify) 15 mg DAILY ORAL 06/04/17 09:00 07/04/17 08:59 06/09/17 09:15 Aspirin (ASA) 81 mg DAILY ORAL 06/04/17 09:30 07/04/17 09:29 06/09/17 09:14 Azithromycin 500 mg/Dextrose 275 ml @ 275 mls/hr Q24HRS IV 06/04/17 15:00 06/10/17 15:59 06/08/17 15:53 Bupropion HCl (Wellbutrin) 100 mg BID ORAL 06/03/17 18:00 07/03/17 17:59 06/09/17 09:15 Carisoprodol (Soma) 350 mg BID ORAL 06/04/17 18:00 07/04/17 17:59 06/09/17 09:14 Carisoprodol (Soma) 350 mg Q6H PRN ORAL MUSCLE SPASMS 06/03/17 13:30 07/03/17 13:29 Carvedilol (Coreg) 25 mg EVERY 12 HOURS ORAL 06/04/17 11:30 07/04/17 11:29 06/09/17 09:14 Chlorhexidine Gluconate (Mireille-Hex 2%) 1 applic DAILY@2000 TOPIC 06/05/17 20:00 07/05/17 19:59 06/08/17 20:28 Clonidine HCl (Catapres Tab) 0.1 mg Q4H PRN ORAL bp over 160 syst 06/03/17 16:30 07/03/17 16:29 Dextrose (Dextrose 50%) STAT PRN IV Hypoglycemia 06/03/17 13:30 07/03/17 13:29 Docusate Sodium (Colace) 100 mg THREE TIMES A DAY ORAL 06/03/17 18:00 07/03/17 17:59 06/09/17 09:15 Lisinopril (Prinivil) 20 mg BID ORAL 06/04/17 09:00 07/04/17 08:59 06/09/17 09:14 Morphine Sulfate (Morphine Sulfate) 4 mg Q4H PRN IVP BREAKTHROUGH CHEST PAIN 06/04/17 22:00 06/11/17 21:59 06/09/17 06:24 Nitroglycerin (Ntg) 0.4 mg Q5M PRN SL Prn Chest Pain 06/04/17 09:15 07/04/17 09:14 06/05/17 00:34 Nitroglycerin (Ntg) 1 patch Q24H TDERMAL 06/04/17 11:30 07/04/17 11:29 06/09/17 12:00 Ondansetron HCl (Zofran) 4 mg Q6H PRN IVP Nausea & Vomiting 06/03/17 13:30 07/03/17 13:29 Pantoprazole (Protonix) 40 mg DAILY ORAL 06/03/17 17:00 07/03/17 16:59 06/09/17 09:12 Piperacillin Sod/ Tazobactam Sod 2.25 gm/Sodium Chloride 55 ml @ 110 mls/hr Q8H IVPB 06/07/17 16:00 06/14/17 15:59 06/09/17 09:11 Polyethylene Glycol (Miralax) 17 gm DAILYPRN PRN ORAL Constipation 06/03/17 13:30 07/03/17 13:29 Promethazine HCl/ Codeine (Phenergan with Codeine) 5 ml Q4H PRN ORAL For Cough 06/05/17 08:30 07/05/17 08:29 Sevelamer Carbonate (Renvela) 2,400 mg THREE TIMES A DAY ORAL 06/09/17 13:00 07/09/17 12:59 Temazepam (Restoril) 15 mg HSPRN PRN ORAL Insomnia 06/03/17 21:00 06/10/17 20:59 06/05/17 21:10 Vancomycin HCl (Vanco rx to dose) 1 ea DAILY PRN MISC Per rx protocol 06/04/17 12:45 07/04/17 12:44 Allergies: Coded Allergies: No Known Allergies (Unverified , 10/24/15) ROS Limited/Unobtainable: No Constitutional: Reports: no symptoms HEENT: Reports: no symptoms Cardiovascular: Reports: no symptoms Respiratory: Reports: cough Gastrointestinal/Abdominal: Reports: no symptoms Genitourinary: Reports: no symptoms Neurologic/Psychiatric: Reports: no symptoms Subjective 57 YO M admitted with chest pain and shortness of breath. Now pneumonia and candelaria heart failure. On nasal canula. Cover for Int Med-Dr Weinstein. HIMANSHU Objective Last Vital Signs Date Time Temp Pulse Resp B/P (MAP) Pulse Ox O2 Delivery O2 Flow Rate FiO2 06/09/17 12:10 99.6 94 24 123/75 Nasal Cannula 99.6 06/09/17 07:50 5.0 40 06/09/17 07:50 94 Laboratory Tests Test 06/09/17 05:00 White Blood Count 6.4 K/UL (4.8-10.8) Red Blood Count 2.78 M/UL (4.70-6.10) L Hemoglobin 8.3 G/DL (14.2-18.0) L Hematocrit 25.6 % (42.0-52.0) L Mean Corpuscular Volume 92 FL (80-99) Mean Corpuscular Hemoglobin 29.7 PG (27.0-31.0) Mean Corpuscular Hemoglobin Concent 32.4 G/DL (32.0-36.0) Red Cell Distribution Width 16.7 % (11.6-14.8) H Platelet Count 85 K/UL (150-450) L Mean Platelet Volume 8.1 FL (6.5-10.1) Neutrophils (%) (Auto) % (45.0-75.0) Lymphocytes (%) (Auto) % (20.0-45.0) Monocytes (%) (Auto) % (1.0-10.0) Eosinophils (%) (Auto) % (0.0-3.0) Basophils (%) (Auto) % (0.0-2.0) Differential Total Cells Counted 100 Neutrophils % (Manual) 70 % (45-75) Lymphocytes % (Manual) 13 % (20-45) L Monocytes % (Manual) 13 % (1-10) H Eosinophils % (Manual) 4 % (0-3) H Basophils % (Manual) 0 % (0-2) Band Neutrophils 0 % (0-8) Platelet Estimate Decreased L Platelet Morphology Normal Anisocytosis 1+ Sodium Level 143 MMOL/L (136-145) Potassium Level 3.7 MMOL/L (3.5-5.1) Chloride Level 100 MMOL/L (98-107) Carbon Dioxide Level 36 MMOL/L (21-32) H Anion Gap 7 mmol/L (5-15) Blood Urea Nitrogen 45 mg/dL (7-18) H Creatinine 9.0 MG/DL (0.55-1.30) H Estimat Glomerular Filtration Rate 7.4 mL/min (>60) Glucose Level 74 MG/DL (74-106) Calcium Level 8.7 MG/DL (8.5-10.1) Phosphorus Level 6.0 MG/DL (2.5-4.9) H Magnesium Level 1.9 MG/DL (1.8-2.4) Total Bilirubin 0.9 MG/DL (0.2-1.0) Gamma Glutamyl Transpeptidase 155 U/L (5-85) H Aspartate Amino Transf (AST/SGOT) 13 U/L (15-37) L Alanine Aminotransferase (ALT/SGPT) 21 U/L (12-78) Alkaline Phosphatase 121 U/L (46-116) H C-Reactive Protein, Quantitative 18.0 mg/dL (0.00-0.90) H Pro-B-Type Natriuretic Peptide > 56688 pg/mL (0-125) H Total Protein 6.2 G/DL (6.4-8.2) L Albumin 2.2 G/DL (3.4-5.0) L Globulin 4.0 g/dL Albumin/Globulin Ratio 0.6 (1.0-2.7) L Random Vancomycin Level 24.1 ug/mL Microbiology Date/Time Source Procedure Growth Status 06/07/17 04:00 Sputum AFB Specimen Processing Tissue - Final Resulted 06/07/17 04:00 Sputum Acid Fast Bacilli Smear - Final Resulted 06/07/17 04:00 Sputum Acid Fast Bacilli Culture Pending Resulted Intake and Output 06/08/17 06/09/17 19:00 07:00 Intake Total 810 ml 110 ml Output Total 3000 ml Balance 810 ml -2890 ml Intake Oral 480 ml IV Total 330 ml 110 ml Hemodialysis UF 3000 ml Objective General Appearance: WD/WN, alert, moderate distress EENT: PERRL/EOMI, normal ENT inspection Neck: non-tender, normal alignment, supple, normal inspection Cardiovascular: normal peripheral pulses, normal rate, regular rhythm, no gallop/murmur, no JVD Respiratory/Chest: BIPAP; respiratory distress, crackles/rales, rhonchi - bilaterally, expiratory wheezing Abdomen: normal bowel sounds, non tender, soft, no organomegaly, no mass Extremities: normal range of motion 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 ?volume overload? Currently on nasal canula. See pulmonay note. (2) Pleuritic chest pain (3) Hemoptysis Assessment & Plan: Due to pneumonia (4) Pneumonia Assessment & Plan: RUL and cavitary. Concerning for TB. Await AFB cultures- see ID consult. (5) Shortness of breath (6) ESRD (end stage renal disease) on dialysis Assessment & Plan: See nephrology note. Hemodialysis 06/06/17 per nephrology (7) Hyperkalemia Assessment & Plan: Due to renal failure. Hemodialysis 06/06/17 per nephrology (8) COPD (chronic obstructive pulmonary disease) (9) HTN (hypertension) Assessment & Plan: Continue coreg and lisinopril. (10) CHF (congestive heart failure) (11) Elevated troponin Assessment & Plan: ?due to renal failure? See cardiology note. Status: progressing ZOEY PIRES Jun 09, 2017 12:20
--- NOTE | 2017-06-09 12:42 | Diagnostic Imaging Report ---
Indication: Reason For Exam: SOB Technique: One view of the chest Comparison: 06/08/2017 Findings: Right perihilar dense consolidation appears slightly smaller than on the prior exam. There is suggestion of increased pleural fluid on the right, however. Ill-defined interstitial and airspace disease in the left lung is probably unchanged allowing for differences in degree of inspiration. Left chest AICD is again demonstrated. The heart is markedly enlarged. Impression: Stable or slightly improved right perihilar infiltrate versus edema Suspect increasing pleural fluid on the right Probably unchanged interstitial and airspace infiltrates versus edema on the left
[2017-06-09] MEDS: Azithromycin 500 MG in D5W 275 ML IV SCH (16:11)
[2017-06-09] MEDS ORDERED: Acetaminophen 650 MG SUPP RECTAL PRN (16:30)
--- NOTE | 2017-06-09 20:05 | Cardiology Progress Note ---
Assessment/Plan Assessment/Plan plueritic chest pain neg recent sig perfusion abn; systolic dysfunction on mild degree involving the septum cavitating lung lesion esrd htn anemia icd hx tropn min abn related to esrd likely as no peak no jennifer venous duplex pending tawanna echo reviewed swma in septum (possible) as tech difficult study ef 45% dialysis per dr grimaldo bp better on lower dose of bp meds mental worse today per rn had hypoglycemia earlier to day bp meds cannot be given by oral rout no ngt present tele sinu Subjective ROS Limited/Unobtainable: Yes Objective Last 24 Hour Vital Signs Date Time Temp Pulse Resp B/P (MAP) Pulse Ox O2 Delivery O2 Flow Rate FiO2 06/09/17 19:58 99.2 79 22 107/61 95 Bi-pap 99.2 06/09/17 18:58 76 16 94 Full Face 50 06/09/17 18:56 95 Bi-pap 50 06/09/17 17:07 99.1 06/09/17 17:07 95 18 97 Full Face 50 06/09/17 16:37 100.3 06/09/17 16:14 96 24 91 Full Face 55 06/09/17 16:00 100.2 99 21 123/75 100 Bi-pap 100.2 06/09/17 16:00 98 06/09/17 12:10 99.6 94 24 123/75 Nasal Cannula 99.6 06/09/17 12:00 123/75 06/09/17 10:13 98.8 06/09/17 09:14 98.8 06/09/17 09:14 103 123/75 06/09/17 09:14 123/75 06/09/17 09:13 102 123/75 06/09/17 08:00 100.4 102 22 123/75 Nasal Cannula 100.4 06/09/17 08:00 105 06/09/17 07:50 Nasal Cannula 5.0 40 06/09/17 07:50 94 Nasal Cannula 5.0 40 06/09/17 06:54 98.8 06/09/17 06:24 98.8 06/09/17 04:11 98.8 84 18 123/75 95 Nasal Cannula 98.8 06/09/17 04:00 82 06/09/17 04:00 97.7 80 20 114/86 96 Nasal Cannula 5.0 97.7 06/09/17 02:00 98.5 82 20 117/88 96 Nasal Cannula 5.0 98.5 06/09/17 01:21 98.9 06/09/17 00:01 98.9 79 20 129/76 91 Bi-pap 98.9 06/09/17 00:00 98.5 82 20 117/88 96 Nasal Cannula 5.0 98.5 06/09/17 00:00 86 06/08/17 23:50 97.5 06/08/17 23:02 87 28 99 Full Face 45 06/08/17 22:51 100.1 06/08/17 21:56 93 20 Nasal Cannula 4.0 36 06/08/17 21:54 Nasal Cannula 4.0 36 06/08/17 21:54 96 Bi-pap 45 06/08/17 20:40 99.9 94 28 121/66 Nasal Cannula 5.0 99.9 06/08/17 20:40 Nasal Cannula 5.0 06/08/17 20:29 94 120/64 06/08/17 20:09 99.9 94 38 121/56 95 Nasal Cannula 99.9 General Appearance: other - sleepy on bipap not verbal Neck: supple Cardiovascular: normal rate, regular rhythm Respiratory/Chest: rhonchi - left Abdomen: normal bowel sounds, non tender, soft Extremities: no swelling Intake and Output 06/08/17 06/09/17 19:00 07:00 Intake Total 810 ml 110 ml Output Total 3000 ml Balance 810 ml -2890 ml Intake Oral 480 ml IV Total 330 ml 110 ml Hemodialysis UF 3000 ml Laboratory Tests Test 06/09/17 05:00 White Blood Count 6.4 K/UL (4.8-10.8) Red Blood Count 2.78 M/UL (4.70-6.10) L Hemoglobin 8.3 G/DL (14.2-18.0) L Hematocrit 25.6 % (42.0-52.0) L Mean Corpuscular Volume 92 FL (80-99) Mean Corpuscular Hemoglobin 29.7 PG (27.0-31.0) Mean Corpuscular Hemoglobin Concent 32.4 G/DL (32.0-36.0) Red Cell Distribution Width 16.7 % (11.6-14.8) H Platelet Count 85 K/UL (150-450) L Mean Platelet Volume 8.1 FL (6.5-10.1) Neutrophils (%) (Auto) % (45.0-75.0) Lymphocytes (%) (Auto) % (20.0-45.0) Monocytes (%) (Auto) % (1.0-10.0) Eosinophils (%) (Auto) % (0.0-3.0) Basophils (%) (Auto) % (0.0-2.0) Differential Total Cells Counted 100 Neutrophils % (Manual) 70 % (45-75) Lymphocytes % (Manual) 13 % (20-45) L Monocytes % (Manual) 13 % (1-10) H Eosinophils % (Manual) 4 % (0-3) H Basophils % (Manual) 0 % (0-2) Band Neutrophils 0 % (0-8) Platelet Estimate Decreased L Platelet Morphology Normal Anisocytosis 1+ Sodium Level 143 MMOL/L (136-145) Potassium Level 3.7 MMOL/L (3.5-5.1) Chloride Level 100 MMOL/L (98-107) Carbon Dioxide Level 36 MMOL/L (21-32) H Anion Gap 7 mmol/L (5-15) Blood Urea Nitrogen 45 mg/dL (7-18) H Creatinine 9.0 MG/DL (0.55-1.30) H Estimat Glomerular Filtration Rate 7.4 mL/min (>60) Glucose Level 74 MG/DL (74-106) Calcium Level 8.7 MG/DL (8.5-10.1) Phosphorus Level 6.0 MG/DL (2.5-4.9) H Magnesium Level 1.9 MG/DL (1.8-2.4) Total Bilirubin 0.9 MG/DL (0.2-1.0) Gamma Glutamyl Transpeptidase 155 U/L (5-85) H Aspartate Amino Transf (AST/SGOT) 13 U/L (15-37) L Alanine Aminotransferase (ALT/SGPT) 21 U/L (12-78) Alkaline Phosphatase 121 U/L (46-116) H C-Reactive Protein, Quantitative 18.0 mg/dL (0.00-0.90) H Pro-B-Type Natriuretic Peptide > 18460 pg/mL (0-125) H Total Protein 6.2 G/DL (6.4-8.2) L Albumin 2.2 G/DL (3.4-5.0) L Globulin 4.0 g/dL Albumin/Globulin Ratio 0.6 (1.0-2.7) L Random Vancomycin Level 24.1 ug/mL Microbiology Date/Time Source Procedure Growth Status 06/07/17 04:00 Sputum AFB Specimen Processing Tissue - Final Resulted 06/07/17 04:00 Sputum Acid Fast Bacilli Smear - Final Resulted 06/07/17 04:00 Sputum Acid Fast Bacilli Culture Pending Resulted PRECIOUS GARCIA 5, 2018 20:05
[2017-06-09] MEDS: Dyna-Hex 2% Top Sol 2oz TOPIC SCH (20:33)
--- NOTE | 2017-06-09 21:23 | General Progress Note ---
Assessment/Plan Assessment/Plan Assessment - Anemia - OB (+) Stool - R/O TB - ESRD/HD - DM - HTN - COPD - gallstones Recommendations - push po - monitor CBC - transfuse PRN - Acid blockade - Defer EGD/Colon a this time Subjective Allergies: Coded Allergies: No Known Allergies (Unverified , 10/24/15) Subjective Above noted seen earlier today no abdominal complaints tolerating PO OB (+) Objective Last 24 Hour Vital Signs Date Time Temp Pulse Resp B/P (MAP) Pulse Ox O2 Delivery O2 Flow Rate FiO2 06/09/17 20:50 76 24 96 Full Face 50 06/09/17 20:34 79 107/61 06/09/17 19:58 99.2 79 22 107/61 95 Bi-pap 99.2 06/09/17 18:58 76 16 94 Full Face 50 06/09/17 18:56 95 Bi-pap 50 06/09/17 18:00 107/61 06/09/17 17:07 99.1 06/09/17 17:07 95 18 97 Full Face 50 06/09/17 16:37 100.3 06/09/17 16:14 96 24 91 Full Face 55 06/09/17 16:00 100.2 99 21 123/75 100 Bi-pap 100.2 06/09/17 16:00 98 06/09/17 12:10 99.6 94 24 123/75 Nasal Cannula 99.6 06/09/17 12:00 123/75 06/09/17 10:13 98.8 06/09/17 09:14 98.8 06/09/17 09:14 103 123/75 06/09/17 09:14 123/75 06/09/17 09:13 102 123/75 06/09/17 08:00 100.4 102 22 123/75 Nasal Cannula 100.4 06/09/17 08:00 105 06/09/17 07:50 Nasal Cannula 5.0 40 06/09/17 07:50 94 Nasal Cannula 5.0 40 06/09/17 06:54 98.8 06/09/17 06:24 98.8 06/09/17 04:11 98.8 84 18 123/75 95 Nasal Cannula 98.8 06/09/17 04:00 82 06/09/17 04:00 97.7 80 20 114/86 96 Nasal Cannula 5.0 97.7 06/09/17 02:00 98.5 82 20 117/88 96 Nasal Cannula 5.0 98.5 06/09/17 01:21 98.9 06/09/17 00:01 98.9 79 20 129/76 91 Bi-pap 98.9 06/09/17 00:00 98.5 82 20 117/88 96 Nasal Cannula 5.0 98.5 06/09/17 00:00 86 06/08/17 23:50 97.5 06/08/17 23:02 87 28 99 Full Face 45 06/08/17 22:51 100.1 06/08/17 21:56 93 20 Nasal Cannula 4.0 36 06/08/17 21:54 Nasal Cannula 4.0 36 06/08/17 21:54 96 Bi-pap 45 Intake and Output 06/08/17 06/09/17 19:00 07:00 Intake Total 810 ml 110 ml Output Total 3000 ml Balance 810 ml -2890 ml Intake Oral 480 ml IV Total 330 ml 110 ml Hemodialysis UF 3000 ml Laboratory Tests 06/09/17 05:00: White Blood Count 6.4, Red Blood Count 2.78L, Hemoglobin 8.3L, Hematocrit 25.6L , Mean Corpuscular Volume 92, Mean Corpuscular Hemoglobin 29.7, Mean Corpuscular Hemoglobin Concent 32.4, Red Cell Distribution Width 16.7H, Platelet Count 85L, Mean Platelet Volume 8.1, Neutrophils (%) (Auto) , Lymphocytes (%) (Auto) , Monocytes (%) (Auto) , Eosinophils (%) (Auto) , Basophils (%) (Auto) , Differential Total Cells Counted 100, Neutrophils % ( Manual) 70, Lymphocytes % (Manual) 13L, Monocytes % (Manual) 13H, Eosinophils % (Manual) 4H, Basophils % (Manual) 0, Band Neutrophils 0, Platelet Estimate DecreasedL, Platelet Morphology Normal, Anisocytosis 1+, Sodium Level 143, Potassium Level 3.7, Chloride Level 100, Carbon Dioxide Level 36H, Anion Gap 7, Blood Urea Nitrogen 45H, Creatinine 9.0H, Estimat Glomerular Filtration Rate 7.4 , Glucose Level 74, Calcium Level 8.7, Phosphorus Level 6.0H, Magnesium Level 1.9, Total Bilirubin 0.9, Gamma Glutamyl Transpeptidase 155H, Aspartate Amino Transf (AST/SGOT) 13L, Alanine Aminotransferase (ALT/SGPT) 21, Alkaline Phosphatase 121H, C-Reactive Protein, Quantitative 18.0H, Pro-B-Type Natriuretic Peptide > 37907J, Total Protein 6.2L, Albumin 2.2L, Globulin 4.0, Albumin/Globulin Ratio 0.6L, Random Vancomycin Level 24.1 Height (Feet): 5 Height (Inches): 7.00 Weight (Pounds): 214 Objective WDWN AA Man NCAT supple CTA RRR Soft NT ND No edema PERCY JOYNER Jun 09, 2017 21:23
--- NOTE | 2017-06-09 21:48 | Infectious Diseases Prog Note ---
Assessment/Plan Assessment/Plan ASSESSMENT: The patient is a 57-year-old male with, Low-grade fever. Status post leukocytosis. Thrombocytopenia. Influenza A and B screen negative. Pneumonia with possible cavitary lesion/hemoptysis. SCx: Neg T-SPOT :Neg AFB x 3 : Neg CT: 7.8 x 5.3 x 6.6 cm dense opacity in the posterior inferior right upper lobe with a central cavitation. Chest x-ray : right mid lung infiltrate, possible cavitation Rule out tuberculosis, fungal infection, or necrotizing pneumonia. CRP 14 Influenza negative HIV : NEG Seizure disorder History of CVA History of pacemaker placement Hyperlipidemia Hypertension COPD/asthma End-stage renal disease, on hemodialysis Diabetes Anxiety Anemia Echo, ejection fraction 45% to 50%. PLAN: Patient on Zosyn, vancomycin day # 6 SP 3/4 SP Zithromax D# 6 sputum culture (bacterial, fungal, and AFB x3). sputum for AFB X 3 AND MTB PCR. Coccidioidal and cryptococcus serology. Galactomannan and Fungitell. Airborne isolation may need BAL , will defer this to Pul team Subjective Allergies: Coded Allergies: No Known Allergies (Unverified , 10/24/15) Subjective no new complain afebrile Objective Vital Signs Last 24 Hour Vital Signs Date Time Temp Pulse Resp B/P (MAP) Pulse Ox O2 Delivery O2 Flow Rate FiO2 06/09/17 20:50 76 24 96 Full Face 50 06/09/17 20:34 79 107/61 06/09/17 19:58 99.2 79 22 107/61 95 Bi-pap 99.2 06/09/17 18:58 76 16 94 Full Face 50 06/09/17 18:56 95 Bi-pap 50 06/09/17 18:00 107/61 06/09/17 17:07 99.1 06/09/17 17:07 95 18 97 Full Face 50 06/09/17 16:37 100.3 06/09/17 16:14 96 24 91 Full Face 55 06/09/17 16:00 100.2 99 21 123/75 100 Bi-pap 100.2 06/09/17 16:00 98 06/09/17 12:10 99.6 94 24 123/75 Nasal Cannula 99.6 06/09/17 12:00 123/75 06/09/17 10:13 98.8 06/09/17 09:14 98.8 06/09/17 09:14 103 123/75 06/09/17 09:14 123/75 06/09/17 09:13 102 123/75 06/09/17 08:00 100.4 102 22 123/75 Nasal Cannula 100.4 06/09/17 08:00 105 06/09/17 07:50 Nasal Cannula 5.0 40 06/09/17 07:50 94 Nasal Cannula 5.0 40 06/09/17 06:54 98.8 06/09/17 06:24 98.8 06/09/17 04:11 98.8 84 18 123/75 95 Nasal Cannula 98.8 06/09/17 04:00 82 06/09/17 04:00 97.7 80 20 114/86 96 Nasal Cannula 5.0 97.7 06/09/17 02:00 98.5 82 20 117/88 96 Nasal Cannula 5.0 98.5 06/09/17 01:21 98.9 06/09/17 00:01 98.9 79 20 129/76 91 Bi-pap 98.9 06/09/17 00:00 98.5 82 20 117/88 96 Nasal Cannula 5.0 98.5 06/09/17 00:00 86 06/08/17 23:50 97.5 06/08/17 23:02 87 28 99 Full Face 45 06/08/17 22:51 100.1 06/08/17 21:56 93 20 Nasal Cannula 4.0 36 06/08/17 21:54 Nasal Cannula 4.0 36 06/08/17 21:54 96 Bi-pap 45 Height (Feet): 5 Height (Inches): 7.00 Weight (Pounds): 214 HEENT: anicteric Respiratory/Chest: no respiratory distress Cardiovascular: regular rhythm Abdomen: non distended Microbiology Date/Time Source Procedure Growth Status 06/07/17 04:00 Sputum AFB Specimen Processing Tissue - Final Resulted 06/07/17 04:00 Sputum Acid Fast Bacilli Smear - Final Resulted 06/07/17 04:00 Sputum Acid Fast Bacilli Culture Pending Resulted Laboratory Tests Test 06/09/17 05:00 White Blood Count 6.4 K/UL (4.8-10.8) Red Blood Count 2.78 M/UL (4.70-6.10) L Hemoglobin 8.3 G/DL (14.2-18.0) L Hematocrit 25.6 % (42.0-52.0) L Mean Corpuscular Volume 92 FL (80-99) Mean Corpuscular Hemoglobin 29.7 PG (27.0-31.0) Mean Corpuscular Hemoglobin Concent 32.4 G/DL (32.0-36.0) Red Cell Distribution Width 16.7 % (11.6-14.8) H Platelet Count 85 K/UL (150-450) L Mean Platelet Volume 8.1 FL (6.5-10.1) Neutrophils (%) (Auto) % (45.0-75.0) Lymphocytes (%) (Auto) % (20.0-45.0) Monocytes (%) (Auto) % (1.0-10.0) Eosinophils (%) (Auto) % (0.0-3.0) Basophils (%) (Auto) % (0.0-2.0) Differential Total Cells Counted 100 Neutrophils % (Manual) 70 % (45-75) Lymphocytes % (Manual) 13 % (20-45) L Monocytes % (Manual) 13 % (1-10) H Eosinophils % (Manual) 4 % (0-3) H Basophils % (Manual) 0 % (0-2) Band Neutrophils 0 % (0-8) Platelet Estimate Decreased L Platelet Morphology Normal Anisocytosis 1+ Sodium Level 143 MMOL/L (136-145) Potassium Level 3.7 MMOL/L (3.5-5.1) Chloride Level 100 MMOL/L (98-107) Carbon Dioxide Level 36 MMOL/L (21-32) H Anion Gap 7 mmol/L (5-15) Blood Urea Nitrogen 45 mg/dL (7-18) H Creatinine 9.0 MG/DL (0.55-1.30) H Estimat Glomerular Filtration Rate 7.4 mL/min (>60) Glucose Level 74 MG/DL (74-106) Calcium Level 8.7 MG/DL (8.5-10.1) Phosphorus Level 6.0 MG/DL (2.5-4.9) H Magnesium Level 1.9 MG/DL (1.8-2.4) Total Bilirubin 0.9 MG/DL (0.2-1.0) Gamma Glutamyl Transpeptidase 155 U/L (5-85) H Aspartate Amino Transf (AST/SGOT) 13 U/L (15-37) L Alanine Aminotransferase (ALT/SGPT) 21 U/L (12-78) Alkaline Phosphatase 121 U/L (46-116) H C-Reactive Protein, Quantitative 18.0 mg/dL (0.00-0.90) H Pro-B-Type Natriuretic Peptide > 98741 pg/mL (0-125) H Total Protein 6.2 G/DL (6.4-8.2) L Albumin 2.2 G/DL (3.4-5.0) L Globulin 4.0 g/dL Albumin/Globulin Ratio 0.6 (1.0-2.7) L Random Vancomycin Level 24.1 ug/mL Current Medications Medications (Trade) Dose Ordered Sig/Jose Route PRN Reason Start Time Stop Time Status Last Admin Dose Admin Acetaminophen (Tylenol) 650 mg Q4H PRN RECTAL Mild Pain (Pain Scale 1-3) 06/09/17 16:30 07/09/17 16:29 06/09/17 16:37 Albuterol/ Ipratropium (Albuterol/ Ipratropium) 3 ml Q4H PRN HHN Shortness of Breath 06/07/17 09:30 06/12/17 23:59 Alprazolam (Xanax) 2 mg BID ORAL 06/04/17 18:00 06/11/17 17:59 06/09/17 09:12 Alprazolam (Xanax) 2 mg DAILYPRN PRN ORAL For Anxiety 06/04/17 12:00 06/11/17 11:59 06/07/17 01:36 Amlodipine Besylate (Norvasc) 2.5 mg DAILY ORAL 06/08/17 09:00 07/08/17 08:59 06/09/17 09:13 Aripiprazole (Abilify) 15 mg DAILY ORAL 06/04/17 09:00 07/04/17 08:59 06/09/17 09:15 Aspirin (ASA) 81 mg DAILY ORAL 06/04/17 09:30 07/04/17 09:29 06/09/17 09:14 Azithromycin 500 mg/Dextrose 275 ml @ 275 mls/hr Q24HRS IV 06/04/17 15:00 06/10/17 15:59 06/09/17 16:11 Bupropion HCl (Wellbutrin) 100 mg BID ORAL 06/03/17 18:00 07/03/17 17:59 06/09/17 09:15 Carisoprodol (Soma) 350 mg BID ORAL 06/04/17 18:00 07/04/17 17:59 06/09/17 09:14 Carisoprodol (Soma) 350 mg Q6H PRN ORAL MUSCLE SPASMS 06/03/17 13:30 07/03/17 13:29 Carvedilol (Coreg) 25 mg EVERY 12 HOURS ORAL 06/04/17 11:30 07/04/17 11:29 06/09/17 09:14 Chlorhexidine Gluconate (Mireille-Hex 2%) 1 applic DAILY@2000 TOPIC 06/05/17 20:00 07/05/17 19:59 06/09/17 20:33 Clonidine HCl (Catapres Tab) 0.1 mg Q4H PRN ORAL bp over 160 syst 06/03/17 16:30 07/03/17 16:29 Dextrose (Dextrose 50%) STAT PRN IV Hypoglycemia 06/03/17 13:30 07/03/17 13:29 06/09/17 16:05 Docusate Sodium (Colace) 100 mg THREE TIMES A DAY ORAL 06/03/17 18:00 07/03/17 17:59 06/09/17 09:15 Lisinopril (Prinivil) 20 mg BID ORAL 06/04/17 09:00 07/04/17 08:59 06/09/17 09:14 Morphine Sulfate (Morphine Sulfate) 4 mg Q4H PRN IVP BREAKTHROUGH CHEST PAIN 06/04/17 22:00 06/11/17 21:59 06/09/17 06:24 Nitroglycerin (Ntg) 0.4 mg Q5M PRN SL Prn Chest Pain 06/04/17 09:15 07/04/17 09:14 06/05/17 00:34 Nitroglycerin (Ntg) 1 patch Q24H TDERMAL 06/04/17 11:30 07/04/17 11:29 06/09/17 12:00 Ondansetron HCl (Zofran) 4 mg Q6H PRN IVP Nausea & Vomiting 06/03/17 13:30 07/03/17 13:29 Pantoprazole (Protonix) 40 mg DAILY ORAL 06/03/17 17:00 07/03/17 16:59 06/09/17 09:12 Piperacillin Sod/ Tazobactam Sod 2.25 gm/Sodium Chloride 55 ml @ 110 mls/hr Q8H IVPB 06/07/17 16:00 06/14/17 15:59 06/09/17 16:00 Polyethylene Glycol (Miralax) 17 gm DAILYPRN PRN ORAL Constipation 06/03/17 13:30 07/03/17 13:29 Promethazine HCl/ Codeine (Phenergan with Codeine) 5 ml Q4H PRN ORAL For Cough 06/05/17 08:30 07/05/17 08:29 Sevelamer Carbonate (Renvela) 2,400 mg THREE TIMES A DAY ORAL 06/09/17 13:00 07/09/17 12:59 Temazepam (Restoril) 15 mg HSPRN PRN ORAL Insomnia 06/03/17 21:00 06/10/17 20:59 06/05/17 21:10 Vancomycin HCl (Vanco rx to dose) 1 ea DAILY PRN MISC Per rx protocol 06/04/17 12:45 07/04/17 12:44 PREET GUAJARDO M.D. Jun 09, 2017 21:48
--- NOTE | 2017-06-09 23:45 | General Progress Note ---
Assessment/Plan Assessment/Plan #. Anemia secondary to chronic disease. --> Hemoglobin above goal since transfusion --> Continue to closely monitor. --> Anemia workup completed and reviewed. Iron 42, TIBC 180, Ferritin 593, B12 876. --> Ferritin is >500, hgb goal is >7 --> Anemia w/u has been reviewed --> ++Occult blood. Consider GI Services and Recs. #. Anemia of kidney disease --> HD as needed per nephrology team --> Monitor closely. #. Generalized body ache related to fluid overload. #. End-stage renal disease, on hemodialysis. #. Tachycardia, to be seen by Cardiology Service, isolated T-wave and ST- segment depression in V6. #. Elevated BNP, potentially related to underlying CKD. Subjective Date patient seen: Jun 09, 2017 Constitutional: Denies: no symptoms, chills, diaphoresis, fever, malaise, weakness, other HEENT: Denies: no symptoms, eye pain, blurred vision, tearing, double vision, ear pain, ear discharge, nose pain, nose congestion, throat pain, throat swelling, mouth pain, mouth swelling, other Cardiovascular: Denies: no symptoms, chest pain, edema, irregular heart rate, lightheadedness, palpitations, syncope, other Respiratory: Denies: no symptoms, cough, orthopnea, shortness of breath, SOB with excertion, SOB at rest, sputum, stridor, wheezing, other Gastrointestinal/Abdominal: Denies: no symptoms, abdomen distended, abdominal pain, black stools, tarry stools, blood in stool, constipated, diarrhea, difficulty swallowing, nausea, poor appetite, poor fluid intake, rectal bleeding , vomiting, other Genitourinary: Denies: no symptoms, burning, discharge, frequency, flank pain, hematuria, incontinence, pain, urgency, other Neurologic/Psychiatric: Denies: no symptoms, anxiety, depressed, emotional problems, headache, numbness, paresthesia, pre-existing deficit, seizure, tingling, tremors, weakness, other Hematologic/Lymphatic: Reports: anemia Allergies: Coded Allergies: No Known Allergies (Unverified , 10/24/15) Subjective Hematochezia detected. H/H stable since transfusion. Objective Last 24 Hour Vital Signs Date Time Temp Pulse Resp B/P (MAP) Pulse Ox O2 Delivery O2 Flow Rate FiO2 3/5/18 22:32 98 32 88 Full Face 50 06/09/17 20:50 76 24 96 Full Face 50 06/09/17 20:34 79 107/61 06/09/17 20:00 77 06/09/17 19:58 99.2 79 22 107/61 95 Bi-pap 99.2 06/09/17 18:58 76 16 94 Full Face 50 06/09/17 18:56 95 Bi-pap 50 06/09/17 18:00 107/61 06/09/17 17:07 99.1 06/09/17 17:07 95 18 97 Full Face 50 06/09/17 16:37 100.3 06/09/17 16:14 96 24 91 Full Face 55 06/09/17 16:00 100.2 99 21 123/75 100 Bi-pap 100.2 06/09/17 16:00 98 06/09/17 12:10 99.6 94 24 123/75 Nasal Cannula 99.6 06/09/17 12:00 123/75 06/09/17 10:13 98.8 06/09/17 09:14 98.8 06/09/17 09:14 103 123/75 06/09/17 09:14 123/75 06/09/17 09:13 102 123/75 06/09/17 08:00 100.4 102 22 123/75 Nasal Cannula 100.4 06/09/17 08:00 105 06/09/17 07:50 Nasal Cannula 5.0 40 06/09/17 07:50 94 Nasal Cannula 5.0 40 06/09/17 06:54 98.8 06/09/17 06:24 98.8 06/09/17 04:11 98.8 84 18 123/75 95 Nasal Cannula 98.8 06/09/17 04:00 82 06/09/17 04:00 97.7 80 20 114/86 96 Nasal Cannula 5.0 97.7 06/09/17 02:00 98.5 82 20 117/88 96 Nasal Cannula 5.0 98.5 06/09/17 01:21 98.9 06/09/17 00:01 98.9 79 20 129/76 91 Bi-pap 98.9 06/09/17 00:00 98.5 82 20 117/88 96 Nasal Cannula 5.0 98.5 06/09/17 00:00 86 06/08/17 23:50 97.5 Intake and Output 06/08/17 06/09/17 19:00 07:00 Intake Total 810 ml 110 ml Output Total 3000 ml Balance 810 ml -2890 ml Intake Oral 480 ml IV Total 330 ml 110 ml Hemodialysis UF 3000 ml Laboratory Tests 06/09/17 05:00: White Blood Count 6.4, Red Blood Count 2.78L, Hemoglobin 8.3L, Hematocrit 25.6L , Mean Corpuscular Volume 92, Mean Corpuscular Hemoglobin 29.7, Mean Corpuscular Hemoglobin Concent 32.4, Red Cell Distribution Width 16.7H, Platelet Count 85L, Mean Platelet Volume 8.1, Neutrophils (%) (Auto) , Lymphocytes (%) (Auto) , Monocytes (%) (Auto) , Eosinophils (%) (Auto) , Basophils (%) (Auto) , Differential Total Cells Counted 100, Neutrophils % ( Manual) 70, Lymphocytes % (Manual) 13L, Monocytes % (Manual) 13H, Eosinophils % (Manual) 4H, Basophils % (Manual) 0, Band Neutrophils 0, Platelet Estimate DecreasedL, Platelet Morphology Normal, Anisocytosis 1+, Sodium Level 143, Potassium Level 3.7, Chloride Level 100, Carbon Dioxide Level 36H, Anion Gap 7, Blood Urea Nitrogen 45H, Creatinine 9.0H, Estimat Glomerular Filtration Rate 7.4 , Glucose Level 74, Calcium Level 8.7, Phosphorus Level 6.0H, Magnesium Level 1.9, Total Bilirubin 0.9, Gamma Glutamyl Transpeptidase 155H, Aspartate Amino Transf (AST/SGOT) 13L, Alanine Aminotransferase (ALT/SGPT) 21, Alkaline Phosphatase 121H, C-Reactive Protein, Quantitative 18.0H, Pro-B-Type Natriuretic Peptide > 13596R, Total Protein 6.2L, Albumin 2.2L, Globulin 4.0, Albumin/Globulin Ratio 0.6L, Random Vancomycin Level 24.1 Height (Feet): 5 Height (Inches): 7.00 Weight (Pounds): 214 General Appearance: confused Respiratory/Chest: decreased breath sounds Edema: trace edema Irving Parker Jun 09, 2017 23:45
[2017-06-10] VITALS (7 sets, daily range): BP systolic 113–139; BP diastolic 62–77
[2017-06-10] MEDS: Morphine Sulfate 4mg/ml Inj IVP PRN (02:07)
[2017-06-10] MEDS: ALPRAZolam 0.5mg tab ORAL PRN (04:03)
[2017-06-10 06:23] LABS: HEMOGLOBIN 7.8 G/DL (14.2-18.0); MEAN CORPUSCULAR VOLUME 94 FL (80-99); PLATELET COUNT 94 K/UL (150-450); RED BLOOD COUNT 2.55 M/UL (4.70-6.10); RED CELL DISTRIBUTION WIDTH 16.1 % (11.6-14.8); WHITE BLOOD COUNT 5.7 K/UL (4.8-10.8)
[2017-06-10 06:51] LABS: ALANINE AMINOTRANSFERASE 94 U/L (12-78); ALBUMIN 2.1 G/DL (3.4-5.0); ALBUMIN/GLOBULIN RATIO 0.5 (1.0-2.7); ALKALINE PHOSPHATASE 125 U/L (46-116); ANION GAP 11 mmol/L (5-15); ASPARTATE AMINO TRANSFERASE 86 U/L (15-37); BILIRUBIN,TOTAL 0.8 MG/DL (0.2-1.0); BLOOD UREA NITROGEN 59 mg/dL (7-18); CALCIUM 8.6 MG/DL (8.5-10.1); CARBON DIOXIDE 33 MMOL/L (21-32); CHLORIDE 99 MMOL/L (98-107); CREATININE 11.1 MG/DL (0.55-1.30); PHOSPHORUS 7.6 MG/DL (2.5-4.9); POTASSIUM 4.2 MMOL/L (3.5-5.1); SODIUM 143 MMOL/L (136-145)
--- NOTE | 2017-06-10 07:42 | Pulmonology Progress Note ---
Assessment/Plan Problems: (1) Respiratory failure (2) Pneumonia (3) Hemoptysis (4) Anemia (5) ESRD (end stage renal disease) on dialysis (6) HTN (hypertension) Assessment/Plan continues to have low grade fever HD by etcher apprentice check sputum Sputum shows only charli continue abx hold heparin for low PLT taper off bipap if possible. f/u wbc and cultures, cxr Lab in am Subjective ROS Limited/Unobtainable: No Interval Events: more alert, on BIPAP Allergies: Coded Allergies: No Known Allergies (Unverified , 10/24/15) Objective Last 24 Hour Vital Signs Date Time Temp Pulse Resp B/P (MAP) Pulse Ox O2 Delivery O2 Flow Rate FiO2 06/10/17 04:31 84 23 100 Full Face 50 06/10/17 04:00 50 06/10/17 04:00 98.2 82 16 117/64 100 Bi-pap 98.2 06/10/17 04:00 82 06/10/17 02:36 85 24 96 Full Face 50 06/10/17 02:09 88 31 93 Full Face 50 06/10/17 00:39 96 24 78 Full Face 50 06/10/17 00:00 55 06/10/17 00:00 90 06/09/17 23:59 99.1 86 16 107/61 95 Bi-pap 99.1 06/09/17 22:32 98 32 88 Full Face 50 06/09/17 20:50 76 24 96 Full Face 50 06/09/17 20:34 79 107/61 06/09/17 20:00 55 06/09/17 20:00 77 06/09/17 19:58 99.2 79 22 107/61 95 Bi-pap 99.2 06/09/17 18:58 76 16 94 Full Face 50 06/09/17 18:56 95 Bi-pap 50 06/09/17 18:00 107/61 06/09/17 17:07 99.1 06/09/17 17:07 95 18 97 Full Face 50 06/09/17 16:37 100.3 06/09/17 16:14 96 24 91 Full Face 55 06/09/17 16:00 100.2 99 21 123/75 100 Bi-pap 100.2 06/09/17 16:00 98 06/09/17 12:10 99.6 94 24 123/75 Nasal Cannula 99.6 06/09/17 12:00 123/75 06/09/17 10:13 98.8 06/09/17 09:14 98.8 06/09/17 09:14 103 123/75 06/09/17 09:14 123/75 06/09/17 09:13 102 123/75 06/09/17 08:00 100.4 102 22 123/75 Nasal Cannula 100.4 06/09/17 08:00 105 06/09/17 07:50 Nasal Cannula 5.0 40 06/09/17 07:50 94 Nasal Cannula 5.0 40 Intake and Output 06/09/17 06/10/17 19:00 07:00 Intake Total 655 ml 100 ml Output Total 400 ml Balance 655 ml -300 ml IV Total 55 ml 100 ml Blood Product 300 ml Other 300 ml Output Urine Total 400 ml # Voids 1 General Appearance: WD/WN HEENT: normocephalic Respiratory/Chest: respiratory distress, accessory muscle use, crackles/rales Cardiovascular: normal peripheral pulses, normal rate Abdomen: normal bowel sounds, soft, non tender Genitourinary: normal external genitalia Extremities: no cyanosis Skin: no lesions 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 Laboratory Tests 06/10/17 04:00: White Blood Count 5.7, Red Blood Count 2.55L, Hemoglobin 7.8L, Hematocrit 24.0L , Mean Corpuscular Volume 94, Mean Corpuscular Hemoglobin 30.5, Mean Corpuscular Hemoglobin Concent 32.4, Red Cell Distribution Width 16.1H, Platelet Count 94L, Mean Platelet Volume 7.5, Neutrophils (%) (Auto) , Lymphocytes (%) (Auto) , Monocytes (%) (Auto) , Eosinophils (%) (Auto) , Basophils (%) (Auto) , Neutrophils % (Manual) [Pending], Lymphocytes % (Manual) [Pending], Platelet Estimate [Pending], Platelet Morphology [Pending], Sodium Level 143, Potassium Level 4.2, Chloride Level 99, Carbon Dioxide Level 33H, Anion Gap 11, Blood Urea Nitrogen 59H, Creatinine 11.1H, Estimat Glomerular Filtration Rate 5.8, Glucose Level 106, Uric Acid 5.8, Calcium Level 8.6, Phosphorus Level 7.6H, Magnesium Level 2.1, Total Bilirubin 0.8, Aspartate Amino Transf (AST/SGOT) 86H, Alanine Aminotransferase (ALT/SGPT) 94H, Alkaline Phosphatase 125H, Pro-B-Type Natriuretic Peptide > 19501C, Total Protein 6.1L, Albumin 2.1L, Globulin 4.0, Albumin/Globulin Ratio 0.5L Current Medications Medications (Trade) Dose Ordered Sig/Jose Route PRN Reason Start Time Stop Time Status Last Admin Dose Admin Acetaminophen (Tylenol) 650 mg Q4H PRN RECTAL Mild Pain (Pain Scale 1-3) 06/09/17 16:30 07/09/17 16:29 06/09/17 16:37 Albuterol/ Ipratropium (Albuterol/ Ipratropium) 3 ml Q4H PRN HHN Shortness of Breath 06/07/17 09:30 06/12/17 23:59 Alprazolam (Xanax) 2 mg BID ORAL 06/04/17 18:00 06/11/17 17:59 06/09/17 09:12 Alprazolam (Xanax) 2 mg DAILYPRN PRN ORAL For Anxiety 06/04/17 12:00 06/11/17 11:59 06/10/17 04:03 Amlodipine Besylate (Norvasc) 2.5 mg DAILY ORAL 06/08/17 09:00 07/08/17 08:59 06/09/17 09:13 Aripiprazole (Abilify) 15 mg DAILY ORAL 06/04/17 09:00 07/04/17 08:59 06/09/17 09:15 Aspirin (ASA) 81 mg DAILY ORAL 06/04/17 09:30 07/04/17 09:29 06/09/17 09:14 Bupropion HCl (Wellbutrin) 100 mg BID ORAL 06/03/17 18:00 07/03/17 17:59 06/09/17 09:15 Carisoprodol (Soma) 350 mg BID ORAL 06/04/17 18:00 07/04/17 17:59 06/09/17 09:14 Carisoprodol (Soma) 350 mg Q6H PRN ORAL MUSCLE SPASMS 06/03/17 13:30 07/03/17 13:29 Carvedilol (Coreg) 25 mg EVERY 12 HOURS ORAL 06/04/17 11:30 07/04/17 11:29 06/09/17 09:14 Chlorhexidine Gluconate (Mireille-Hex 2%) 1 applic DAILY@2000 TOPIC 06/05/17 20:00 07/05/17 19:59 06/09/17 20:33 Clonidine HCl (Catapres Tab) 0.1 mg Q4H PRN ORAL bp over 160 syst 06/03/17 16:30 07/03/17 16:29 Dextrose (Dextrose 50%) STAT PRN IV Hypoglycemia 06/03/17 13:30 07/03/17 13:29 06/09/17 16:05 Docusate Sodium (Colace) 100 mg THREE TIMES A DAY ORAL 06/03/17 18:00 07/03/17 17:59 06/09/17 09:15 Lisinopril (Prinivil) 20 mg BID ORAL 06/04/17 09:00 07/04/17 08:59 06/09/17 09:14 Morphine Sulfate (Morphine Sulfate) 2 mg Q4H PRN IVP BREAKTHROUGH CHEST PAIN 06/10/17 07:00 06/17/17 06:59 Nitroglycerin (Ntg) 0.4 mg Q5M PRN SL Prn Chest Pain 06/04/17 09:15 07/04/17 09:14 06/05/17 00:34 Nitroglycerin (Ntg) 1 patch Q24H TDERMAL 06/04/17 11:30 07/04/17 11:29 06/09/17 12:00 Ondansetron HCl (Zofran) 4 mg Q6H PRN IVP Nausea & Vomiting 06/03/17 13:30 07/03/17 13:29 Pantoprazole (Protonix) 40 mg DAILY ORAL 06/03/17 17:00 07/03/17 16:59 06/09/17 09:12 Piperacillin Sod/ Tazobactam Sod 2.25 gm/Sodium Chloride 55 ml @ 110 mls/hr Q8H IVPB 06/07/17 16:00 06/14/17 15:59 06/09/17 23:59 Polyethylene Glycol (Miralax) 17 gm DAILYPRN PRN ORAL Constipation 06/03/17 13:30 07/03/17 13:29 Promethazine HCl/ Codeine (Phenergan with Codeine) 5 ml Q4H PRN ORAL For Cough 06/05/17 08:30 07/05/17 08:29 Sevelamer Carbonate (Renvela) 2,400 mg THREE TIMES A DAY ORAL 06/09/17 13:00 07/09/17 12:59 Temazepam (Restoril) 15 mg HSPRN PRN ORAL Insomnia 06/03/17 21:00 06/10/17 20:59 06/05/17 21:10 Vancomycin HCl (Vanco rx to dose) 1 ea DAILY PRN MISC Per rx protocol 06/04/17 12:45 07/04/17 12:44 MAICO SYED Jun 10, 2017 07:42
[2017-06-10 08:16] LABS: HEMATOCRIT 25.9 % (42.0-52.0); HEMOGLOBIN 8.2 G/DL (14.2-18.0); MEAN CORPUSCULAR VOLUME 94 FL (80-99); PLATELET COUNT 99 K/UL (150-450); RED BLOOD COUNT 2.76 M/UL (4.70-6.10); RED CELL DISTRIBUTION WIDTH 16.4 % (11.6-14.8); WHITE BLOOD COUNT 5.6 K/UL (4.8-10.8)
[2017-06-10 08:29] LABS: ANION GAP 9 mmol/L (5-15); BLOOD UREA NITROGEN 59 mg/dL (7-18); CALCIUM 8.8 MG/DL (8.5-10.1); CARBON DIOXIDE 34 MMOL/L (21-32); CHLORIDE 99 MMOL/L (98-107); CREATININE 11.5 MG/DL (0.55-1.30); POTASSIUM 4.2 MMOL/L (3.5-5.1); SODIUM 142 MMOL/L (136-145)
[2017-06-10] MEDS: ALPRAZolam 0.5mg tab ORAL SCH ×2 (08:50→17:23)
[2017-06-10] MEDS: Aspirin Baby 81mg ORAL SCH (08:51)
[2017-06-10] MEDS: Docusate 100mg cap ORAL SCH ×3 (08:51→17:24)
[2017-06-10] MEDS: Piperacillin/Tazobactam 2.25 GM in NS 55 ML IVPB SCH ×2 (08:51→17:23)
[2017-06-10] MEDS: Lisinopril 20mg tab ORAL SCH ×2 (09:00→17:24)
[2017-06-10] MEDS: Carvedilol 25mg Tab ORAL SCH ×2 (09:00→20:38)
--- NOTE | 2017-06-10 10:33 | Infectious Diseases Prog Note ---
Assessment/Plan Assessment/Plan ASSESSMENT: The patient is a 57-year-old male with, Low-grade fever, SP Status post leukocytosis. Thrombocytopenia. Influenza A and B screen negative. Pneumonia with possible cavitary lesion/hemoptysis. SCx: Neg T-SPOT :Neg AFB x 3 : Neg CT: 7.8 x 5.3 x 6.6 cm dense opacity in the posterior inferior right upper lobe with a central cavitation. Chest x-ray : right mid lung infiltrate, possible cavitation Rule out tuberculosis, fungal infection, or necrotizing pneumonia. CRP 14 Influenza negative HIV : NEG Seizure disorder History of CVA History of pacemaker placement Hyperlipidemia Hypertension COPD/asthma End-stage renal disease, on hemodialysis Diabetes Anxiety Anemia Echo, ejection fraction 45% to 50%. PLAN: Patient on Zosyn, vancomycin day # 7 SP 3/4 SP Zithromax D# 6 sputum culture (bacterial, fungal, and AFB x3). sputum for AFB X 3 AND MTB PCR. Coccidioidal and cryptococcus serology. Galactomannan and Fungitell. Airborne isolation for now may need BAL , will defer this to Pul team Subjective Allergies: Coded Allergies: No Known Allergies (Unverified , 10/24/15) Subjective no new complain afebrile Objective Vital Signs Last 24 Hour Vital Signs Date Time Temp Pulse Resp B/P (MAP) Pulse Ox O2 Delivery O2 Flow Rate FiO2 06/10/17 09:00 79 113/62 06/10/17 09:00 79 113/62 06/10/17 09:00 113/62 06/10/17 08:00 97.9 79 16 113/62 96 Bi-pap 50 97.9 06/10/17 07:54 80 06/10/17 07:49 Venturi Mask 14.0 55 06/10/17 07:48 95 Venturi Mask 14.0 55 06/10/17 04:31 84 23 100 Full Face 50 06/10/17 04:00 50 06/10/17 04:00 98.2 82 16 117/64 100 Bi-pap 98.2 06/10/17 04:00 82 06/10/17 02:36 85 24 96 Full Face 50 06/10/17 02:09 88 31 93 Full Face 50 06/10/17 00:39 96 24 78 Full Face 50 06/10/17 00:00 55 06/10/17 00:00 90 06/09/17 23:59 99.1 86 16 107/61 95 Bi-pap 99.1 06/09/17 22:32 98 32 88 Full Face 50 06/09/17 20:50 76 24 96 Full Face 50 06/09/17 20:34 79 107/61 06/09/17 20:00 55 06/09/17 20:00 77 06/09/17 19:58 99.2 79 22 107/61 95 Bi-pap 99.2 06/09/17 18:58 76 16 94 Full Face 50 06/09/17 18:56 95 Bi-pap 50 06/09/17 18:00 107/61 06/09/17 17:07 99.1 06/09/17 17:07 95 18 97 Full Face 50 06/09/17 16:37 100.3 06/09/17 16:14 96 24 91 Full Face 55 06/09/17 16:00 100.2 99 21 123/75 100 Bi-pap 100.2 06/09/17 16:00 98 06/09/17 12:10 99.6 94 24 123/75 Nasal Cannula 99.6 06/09/17 12:00 123/75 Height (Feet): 5 Height (Inches): 7.00 Weight (Pounds): 222 HEENT: anicteric Respiratory/Chest: no respiratory distress Cardiovascular: regular rhythm Abdomen: no mass Laboratory Tests Test 06/10/17 04:00 06/10/17 08:10 White Blood Count 5.7 K/UL (4.8-10.8) 5.6 K/UL (4.8-10.8) Red Blood Count 2.55 M/UL (4.70-6.10) L 2.76 M/UL (4.70-6.10) L Hemoglobin 7.8 G/DL (14.2-18.0) L 8.2 G/DL (14.2-18.0) L Hematocrit 24.0 % (42.0-52.0) L 25.9 % (42.0-52.0) L Mean Corpuscular Volume 94 FL (80-99) 94 FL (80-99) Mean Corpuscular Hemoglobin 30.5 PG (27.0-31.0) 29.8 PG (27.0-31.0) Mean Corpuscular Hemoglobin Concent 32.4 G/DL (32.0-36.0) 31.8 G/DL (32.0-36.0) L Red Cell Distribution Width 16.1 % (11.6-14.8) H 16.4 % (11.6-14.8) H Platelet Count 94 K/UL (150-450) L 99 K/UL (150-450) L Mean Platelet Volume 7.5 FL (6.5-10.1) 6.8 FL (6.5-10.1) Neutrophils (%) (Auto) % (45.0-75.0) % (45.0-75.0) Lymphocytes (%) (Auto) % (20.0-45.0) % (20.0-45.0) Monocytes (%) (Auto) % (1.0-10.0) % (1.0-10.0) Eosinophils (%) (Auto) % (0.0-3.0) % (0.0-3.0) Basophils (%) (Auto) % (0.0-2.0) % (0.0-2.0) Differential Total Cells Counted 100 100 Neutrophils % (Manual) 67 % (45-75) 68 % (45-75) Lymphocytes % (Manual) 11 % (20-45) L 13 % (20-45) L Monocytes % (Manual) 15 % (1-10) H 17 % (1-10) H Eosinophils % (Manual) 5 % (0-3) H 2 % (0-3) Basophils % (Manual) 1 % (0-2) 0 % (0-2) Band Neutrophils 1 % (0-8) 0 % (0-8) Platelet Estimate Decreased L Decreased L Platelet Morphology Normal Normal Hypochromasia 3+ 2+ Anisocytosis 1+ 1+ Spherocytes 1+ Sodium Level 143 MMOL/L (136-145) 142 MMOL/L (136-145) Potassium Level 4.2 MMOL/L (3.5-5.1) 4.2 MMOL/L (3.5-5.1) Chloride Level 99 MMOL/L (98-107) 99 MMOL/L (98-107) Carbon Dioxide Level 33 MMOL/L (21-32) H 34 MMOL/L (21-32) H Anion Gap 11 mmol/L (5-15) 9 mmol/L (5-15) Blood Urea Nitrogen 59 mg/dL (7-18) H 59 mg/dL (7-18) H Creatinine 11.1 MG/DL (0.55-1.30) H 11.5 MG/DL (0.55-1.30) H Estimat Glomerular Filtration Rate 5.8 mL/min (>60) 5.6 mL/min (>60) Glucose Level 106 MG/DL (74-106) 115 MG/DL (74-106) H Uric Acid 5.8 MG/DL (2.6-7.2) Calcium Level 8.6 MG/DL (8.5-10.1) 8.8 MG/DL (8.5-10.1) Phosphorus Level 7.6 MG/DL (2.5-4.9) H Magnesium Level 2.1 MG/DL (1.8-2.4) Total Bilirubin 0.8 MG/DL (0.2-1.0) Aspartate Amino Transf (AST/SGOT) 86 U/L (15-37) H Alanine Aminotransferase (ALT/SGPT) 94 U/L (12-78) H Alkaline Phosphatase 125 U/L (46-116) H Pro-B-Type Natriuretic Peptide > 02711 pg/mL (0-125) H Total Protein 6.1 G/DL (6.4-8.2) L Albumin 2.1 G/DL (3.4-5.0) L Globulin 4.0 g/dL Albumin/Globulin Ratio 0.5 (1.0-2.7) L Current Medications Medications (Trade) Dose Ordered Sig/Jose Route PRN Reason Start Time Stop Time Status Last Admin Dose Admin Acetaminophen (Tylenol) 650 mg Q4H PRN RECTAL Mild Pain (Pain Scale 1-3) 06/09/17 16:30 07/09/17 16:29 06/09/17 16:37 Albuterol/ Ipratropium (Albuterol/ Ipratropium) 3 ml Q4H PRN HHN Shortness of Breath 06/07/17 09:30 06/12/17 23:59 Alprazolam (Xanax) 2 mg BID ORAL 06/04/17 18:00 06/11/17 17:59 3/6/18 08:50 Alprazolam (Xanax) 2 mg DAILYPRN PRN ORAL For Anxiety 06/04/17 12:00 06/11/17 11:59 06/10/17 04:03 Amlodipine Besylate (Norvasc) 2.5 mg DAILY ORAL 06/08/17 09:00 07/08/17 08:59 06/09/17 09:13 Aripiprazole (Abilify) 15 mg DAILY ORAL 06/04/17 09:00 07/04/17 08:59 06/10/17 08:50 Aspirin (ASA) 81 mg DAILY ORAL 06/04/17 09:30 07/04/17 09:29 06/10/17 08:51 Bupropion HCl (Wellbutrin) 100 mg BID ORAL 06/03/17 18:00 07/03/17 17:59 06/10/17 08:50 Carisoprodol (Soma) 350 mg BID ORAL 06/04/17 18:00 07/04/17 17:59 06/10/17 08:51 Carisoprodol (Soma) 350 mg Q6H PRN ORAL MUSCLE SPASMS 06/03/17 13:30 07/03/17 13:29 Carvedilol (Coreg) 25 mg EVERY 12 HOURS ORAL 06/04/17 11:30 07/04/17 11:29 06/09/17 09:14 Chlorhexidine Gluconate (Mireille-Hex 2%) 1 applic DAILY@2000 TOPIC 06/05/17 20:00 07/05/17 19:59 06/09/17 20:33 Clonidine HCl (Catapres Tab) 0.1 mg Q4H PRN ORAL bp over 160 syst 06/03/17 16:30 07/03/17 16:29 Dextrose (Dextrose 50%) STAT PRN IV Hypoglycemia 06/03/17 13:30 07/03/17 13:29 06/09/17 16:05 Docusate Sodium (Colace) 100 mg THREE TIMES A DAY ORAL 06/03/17 18:00 07/03/17 17:59 06/10/17 08:51 Lisinopril (Prinivil) 20 mg BID ORAL 06/04/17 09:00 07/04/17 08:59 06/09/17 09:14 Morphine Sulfate (Morphine Sulfate) 2 mg Q4H PRN IVP BREAKTHROUGH CHEST PAIN 06/10/17 07:00 06/17/17 06:59 Nitroglycerin (Ntg) 0.4 mg Q5M PRN SL Prn Chest Pain 06/04/17 09:15 07/04/17 09:14 06/05/17 00:34 Nitroglycerin (Ntg) 1 patch Q24H TDERMAL 06/04/17 11:30 07/04/17 11:29 06/09/17 12:00 Ondansetron HCl (Zofran) 4 mg Q6H PRN IVP Nausea & Vomiting 06/03/17 13:30 07/03/17 13:29 Pantoprazole (Protonix) 40 mg DAILY ORAL 06/03/17 17:00 07/03/17 16:59 06/10/17 08:50 Piperacillin Sod/ Tazobactam Sod 2.25 gm/Sodium Chloride 55 ml @ 110 mls/hr Q8H IVPB 06/07/17 16:00 06/14/17 15:59 06/10/17 08:51 Polyethylene Glycol (Miralax) 17 gm DAILYPRN PRN ORAL Constipation 06/03/17 13:30 07/03/17 13:29 Promethazine HCl/ Codeine (Phenergan with Codeine) 5 ml Q4H PRN ORAL For Cough 06/05/17 08:30 07/05/17 08:29 Sevelamer Carbonate (Renvela) 2,400 mg THREE TIMES A DAY ORAL 06/09/17 13:00 07/09/17 12:59 06/10/17 08:50 Temazepam (Restoril) 15 mg HSPRN PRN ORAL Insomnia 06/03/17 21:00 06/10/17 20:59 06/05/17 21:10 Vancomycin HCl (Vanco rx to dose) 1 ea DAILY PRN MISC Per rx protocol 06/04/17 12:45 07/04/17 12:44 PREET GUAJARDO M.D. Jun 10, 2017 10:33
--- NOTE | 2017-06-10 10:49 | Diagnostic Imaging Report ---
APPROVED REPORT CPT Code: 83044 Present Symptoms Comments: R/O DVT BILATERAL: Imaging reveals a patent deep venous system bilaterally. There is no evidence of thrombus within the femoral, popliteal or tibial segments. The greater saphenous veins are also within normal limits. Doppler indicates normal spontaneous flow within these segments.
[2017-06-10] MEDS: Nitroglycerin Patch 0.4mg TDERMAL SCH (12:46)
--- NOTE | 2017-06-10 13:47 | Nephrology Progress Note ---
Assessment/Plan Problem List: (1) ESRD (end stage renal disease) on dialysis (2) Shortness of breath (3) Anemia Assessment ESRD , missed HD , admitted with high K and pulmonary edema Acute respiratory distress due to volume overload elevated troponin r/o ACS h/o COPD ? exacerbation HTN urgency Cardiomyopathy L AICD anemia of chronic kidney disease Hx of CVA Plan Plan: HD next 36 Transfused Phos binders BP meds adjustment Optimize cardiac status per orders Subjective ROS Limited/Unobtainable: No Objective Objective Last 24 Hour Vital Signs Date Time Temp Pulse Resp B/P (MAP) Pulse Ox O2 Delivery O2 Flow Rate FiO2 06/10/17 12:46 113/62 06/10/17 12:00 97.7 85 20 122/70 100 Venturi Mask 55 97.7 06/10/17 11:53 83 06/10/17 11:48 84 24 100 Venturi Mask 14.0 55 06/10/17 11:39 88 22 98 Venturi Mask 14.0 55 06/10/17 09:00 79 113/62 06/10/17 09:00 79 113/62 06/10/17 09:00 113/62 06/10/17 08:00 97.9 79 16 113/62 96 Bi-pap 50 97.9 06/10/17 07:54 80 06/10/17 07:49 Venturi Mask 14.0 55 06/10/17 07:48 95 Venturi Mask 14.0 55 06/10/17 04:31 84 23 100 Full Face 50 06/10/17 04:00 50 06/10/17 04:00 98.2 82 16 117/64 100 Bi-pap 98.2 06/10/17 04:00 82 06/10/17 02:36 85 24 96 Full Face 50 06/10/17 02:09 88 31 93 Full Face 50 06/10/17 00:39 96 24 78 Full Face 50 06/10/17 00:00 55 06/10/17 00:00 90 06/09/17 23:59 99.1 86 16 107/61 95 Bi-pap 99.1 06/09/17 22:32 98 32 88 Full Face 50 06/09/17 20:50 76 24 96 Full Face 50 06/09/17 20:34 79 107/61 06/09/17 20:00 55 06/09/17 20:00 77 3/5/18 19:58 99.2 79 22 107/61 95 Bi-pap 99.2 06/09/17 18:58 76 16 94 Full Face 50 06/09/17 18:56 95 Bi-pap 50 06/09/17 18:00 107/61 06/09/17 17:07 99.1 06/09/17 17:07 95 18 97 Full Face 50 06/09/17 16:37 100.3 06/09/17 16:14 96 24 91 Full Face 55 06/09/17 16:00 100.2 99 21 123/75 100 Bi-pap 100.2 06/09/17 16:00 98 Intake and Output 06/09/17 06/10/17 19:00 07:00 Intake Total 655 ml 100 ml Output Total 400 ml Balance 655 ml -300 ml IV Total 55 ml 100 ml Blood Product 300 ml Other 300 ml Output Urine Total 400 ml # Voids 1 Laboratory Tests 06/10/17 04:00: White Blood Count 5.7, Red Blood Count 2.55L, Hemoglobin 7.8L, Hematocrit 24.0L , Mean Corpuscular Volume 94, Mean Corpuscular Hemoglobin 30.5, Mean Corpuscular Hemoglobin Concent 32.4, Red Cell Distribution Width 16.1H, Platelet Count 94L, Mean Platelet Volume 7.5, Neutrophils (%) (Auto) , Lymphocytes (%) (Auto) , Monocytes (%) (Auto) , Eosinophils (%) (Auto) , Basophils (%) (Auto) , Differential Total Cells Counted 100, Neutrophils % ( Manual) 67, Lymphocytes % (Manual) 11L, Monocytes % (Manual) 15H, Eosinophils % (Manual) 5H, Basophils % (Manual) 1, Band Neutrophils 1, Platelet Estimate DecreasedL, Platelet Morphology Normal, Hypochromasia 3+, Anisocytosis 1+, Spherocytes 1+, Sodium Level 143, Potassium Level 4.2, Chloride Level 99, Carbon Dioxide Level 33H, Anion Gap 11, Blood Urea Nitrogen 59H, Creatinine 11.1H, Estimat Glomerular Filtration Rate 5.8, Glucose Level 106, Uric Acid 5.8 , Calcium Level 8.6, Phosphorus Level 7.6H, Magnesium Level 2.1, Total Bilirubin 0.8, Aspartate Amino Transf (AST/SGOT) 86H, Alanine Aminotransferase ( ALT/SGPT) 94H, Alkaline Phosphatase 125H, Pro-B-Type Natriuretic Peptide > 49725E, Total Protein 6.1L, Albumin 2.1L, Globulin 4.0, Albumin/Globulin Ratio 0.5L 06/10/17 08:10: White Blood Count 5.6, Red Blood Count 2.76L, Hemoglobin 8.2L, Hematocrit 25.9L , Mean Corpuscular Volume 94, Mean Corpuscular Hemoglobin 29.8, Mean Corpuscular Hemoglobin Concent 31.8L, Red Cell Distribution Width 16.4H, Platelet Count 99L, Mean Platelet Volume 6.8, Neutrophils (%) (Auto) , Lymphocytes (%) (Auto) , Monocytes (%) (Auto) , Eosinophils (%) (Auto) , Basophils (%) (Auto) , Differential Total Cells Counted 100, Neutrophils % ( Manual) 68, Lymphocytes % (Manual) 13L, Monocytes % (Manual) 17H, Eosinophils % (Manual) 2, Basophils % (Manual) 0, Band Neutrophils 0, Platelet Estimate DecreasedL, Platelet Morphology Normal, Hypochromasia 2+, Anisocytosis 1+, Sodium Level 142, Potassium Level 4.2, Chloride Level 99, Carbon Dioxide Level 34H, Anion Gap 9, Blood Urea Nitrogen 59H, Creatinine 11.5H, Estimat Glomerular Filtration Rate 5.6, Glucose Level 115H, Calcium Level 8.8 06/10/17 12:00: Random Vancomycin Level 22.1 Height (Feet): 5 Height (Inches): 7.00 Weight (Pounds): 222 General Appearance: no apparent distress Cardiovascular: normal rate Respiratory/Chest: decreased breath sounds Abdomen: distended Objective no change LIAM MONTELONGO Jun 10, 2017 13:47
--- NOTE | 2017-06-10 14:16 | Cardiology Progress Note ---
Assessment/Plan Assessment/Plan plueritic chest pain neg recent sig perfusion abn; systolic dysfunction on mild degree involving the septum cavitating lung lesion esrd htn anemia icd hx trop min abn related to esrd likely as no peak no jennifer venous duplex neg echo reviewed swma in septum (possible) as tech difficult study ef 45% dialysis per dr grimaldo bp better on lower dose of bp meds mentation improved per staff this am he ate well tele sinu Subjective ROS Limited/Unobtainable: Yes Subjective sleepign on dialysis Objective Last 24 Hour Vital Signs Date Time Temp Pulse Resp B/P (MAP) Pulse Ox O2 Delivery O2 Flow Rate FiO2 06/10/17 12:46 113/62 06/10/17 12:00 97.7 85 20 122/70 100 Venturi Mask 55 97.7 06/10/17 11:53 83 06/10/17 11:48 84 24 100 Venturi Mask 14.0 55 06/10/17 11:39 88 22 98 Venturi Mask 14.0 55 06/10/17 09:00 79 113/62 06/10/17 09:00 79 113/62 06/10/17 09:00 113/62 06/10/17 08:00 97.9 79 16 113/62 96 Bi-pap 50 97.9 06/10/17 07:54 80 06/10/17 07:49 Venturi Mask 14.0 55 06/10/17 07:48 95 Venturi Mask 14.0 55 06/10/17 04:31 84 23 100 Full Face 50 06/10/17 04:00 50 06/10/17 04:00 98.2 82 16 117/64 100 Bi-pap 98.2 06/10/17 04:00 82 06/10/17 02:36 85 24 96 Full Face 50 06/10/17 02:09 88 31 93 Full Face 50 06/10/17 00:39 96 24 78 Full Face 50 06/10/17 00:00 55 06/10/17 00:00 90 06/09/17 23:59 99.1 86 16 107/61 95 Bi-pap 99.1 06/09/17 22:32 98 32 88 Full Face 50 06/09/17 20:50 76 24 96 Full Face 50 06/09/17 20:34 79 107/61 06/09/17 20:00 55 06/09/17 20:00 77 06/09/17 19:58 99.2 79 22 107/61 95 Bi-pap 99.2 06/09/17 18:58 76 16 94 Full Face 50 06/09/17 18:56 95 Bi-pap 50 06/09/17 18:00 107/61 06/09/17 17:07 99.1 06/09/17 17:07 95 18 97 Full Face 50 06/09/17 16:37 100.3 06/09/17 16:14 96 24 91 Full Face 55 06/09/17 16:00 100.2 99 21 123/75 100 Bi-pap 100.2 06/09/17 16:00 98 General Appearance: no apparent distress, other - on fm Intake and Output 06/09/17 06/10/17 19:00 07:00 Intake Total 655 ml 100 ml Output Total 400 ml Balance 655 ml -300 ml IV Total 55 ml 100 ml Blood Product 300 ml Other 300 ml Output Urine Total 400 ml # Voids 1 Laboratory Tests Test 06/10/17 04:00 06/10/17 08:10 06/10/17 12:00 White Blood Count 5.7 K/UL (4.8-10.8) 5.6 K/UL (4.8-10.8) Red Blood Count 2.55 M/UL (4.70-6.10) L 2.76 M/UL (4.70-6.10) L Hemoglobin 7.8 G/DL (14.2-18.0) L 8.2 G/DL (14.2-18.0) L Hematocrit 24.0 % (42.0-52.0) L 25.9 % (42.0-52.0) L Mean Corpuscular Volume 94 FL (80-99) 94 FL (80-99) Mean Corpuscular Hemoglobin 30.5 PG (27.0-31.0) 29.8 PG (27.0-31.0) Mean Corpuscular Hemoglobin Concent 32.4 G/DL (32.0-36.0) 31.8 G/DL (32.0-36.0) L Red Cell Distribution Width 16.1 % (11.6-14.8) H 16.4 % (11.6-14.8) H Platelet Count 94 K/UL (150-450) L 99 K/UL (150-450) L Mean Platelet Volume 7.5 FL (6.5-10.1) 6.8 FL (6.5-10.1) Neutrophils (%) (Auto) % (45.0-75.0) % (45.0-75.0) Lymphocytes (%) (Auto) % (20.0-45.0) % (20.0-45.0) Monocytes (%) (Auto) % (1.0-10.0) % (1.0-10.0) Eosinophils (%) (Auto) % (0.0-3.0) % (0.0-3.0) Basophils (%) (Auto) % (0.0-2.0) % (0.0-2.0) Differential Total Cells Counted 100 100 Neutrophils % (Manual) 67 % (45-75) 68 % (45-75) Lymphocytes % (Manual) 11 % (20-45) L 13 % (20-45) L Monocytes % (Manual) 15 % (1-10) H 17 % (1-10) H Eosinophils % (Manual) 5 % (0-3) H 2 % (0-3) Basophils % (Manual) 1 % (0-2) 0 % (0-2) Band Neutrophils 1 % (0-8) 0 % (0-8) Platelet Estimate Decreased L Decreased L Platelet Morphology Normal Normal Hypochromasia 3+ 2+ Anisocytosis 1+ 1+ Spherocytes 1+ Sodium Level 143 MMOL/L (136-145) 142 MMOL/L (136-145) Potassium Level 4.2 MMOL/L (3.5-5.1) 4.2 MMOL/L (3.5-5.1) Chloride Level 99 MMOL/L (98-107) 99 MMOL/L (98-107) Carbon Dioxide Level 33 MMOL/L (21-32) H 34 MMOL/L (21-32) H Anion Gap 11 mmol/L (5-15) 9 mmol/L (5-15) Blood Urea Nitrogen 59 mg/dL (7-18) H 59 mg/dL (7-18) H Creatinine 11.1 MG/DL (0.55-1.30) H 11.5 MG/DL (0.55-1.30) H Estimat Glomerular Filtration Rate 5.8 mL/min (>60) 5.6 mL/min (>60) Glucose Level 106 MG/DL (74-106) 115 MG/DL (74-106) H Uric Acid 5.8 MG/DL (2.6-7.2) Calcium Level 8.6 MG/DL (8.5-10.1) 8.8 MG/DL (8.5-10.1) Phosphorus Level 7.6 MG/DL (2.5-4.9) H Magnesium Level 2.1 MG/DL (1.8-2.4) Total Bilirubin 0.8 MG/DL (0.2-1.0) Aspartate Amino Transf (AST/SGOT) 86 U/L (15-37) H Alanine Aminotransferase (ALT/SGPT) 94 U/L (12-78) H Alkaline Phosphatase 125 U/L (46-116) H Pro-B-Type Natriuretic Peptide > 14075 pg/mL (0-125) H Total Protein 6.1 G/DL (6.4-8.2) L Albumin 2.1 G/DL (3.4-5.0) L Globulin 4.0 g/dL Albumin/Globulin Ratio 0.5 (1.0-2.7) L Random Vancomycin Level 22.1 ug/mL PRECIOUS GARCIA Jun 10, 2017 14:16
--- NOTE | 2017-06-10 19:37 | Internal Med Progress Note ---
Subjective Date of Service: Jun 10, 2017 Physician Name Zoey Pires Attending Physician Chaitanya Weinstein MD Current Medications Medications (Trade) Dose Ordered Sig/Jose Route PRN Reason Start Time Stop Time Status Last Admin Dose Admin Acetaminophen (Tylenol) 650 mg Q4H PRN RECTAL Mild Pain (Pain Scale 1-3) 06/09/17 16:30 07/09/17 16:29 06/09/17 16:37 Albuterol/ Ipratropium (Albuterol/ Ipratropium) 3 ml Q4H PRN HHN Shortness of Breath 06/07/17 09:30 06/12/17 23:59 06/10/17 11:39 Alprazolam (Xanax) 2 mg BID ORAL 06/04/17 18:00 06/11/17 17:59 06/10/17 17:23 Alprazolam (Xanax) 2 mg DAILYPRN PRN ORAL For Anxiety 06/04/17 12:00 06/11/17 11:59 06/10/17 04:03 Amlodipine Besylate (Norvasc) 2.5 mg DAILY ORAL 06/08/17 09:00 07/08/17 08:59 06/09/17 09:13 Aripiprazole (Abilify) 15 mg DAILY ORAL 06/04/17 09:00 07/04/17 08:59 06/10/17 08:50 Aspirin (ASA) 81 mg DAILY ORAL 06/04/17 09:30 07/04/17 09:29 06/10/17 08:51 Bupropion HCl (Wellbutrin) 100 mg BID ORAL 06/03/17 18:00 07/03/17 17:59 06/10/17 17:24 Carisoprodol (Soma) 350 mg BID ORAL 06/04/17 18:00 07/04/17 17:59 06/10/17 17:25 Carisoprodol (Soma) 350 mg Q6H PRN ORAL MUSCLE SPASMS 06/03/17 13:30 07/03/17 13:29 Carvedilol (Coreg) 25 mg EVERY 12 HOURS ORAL 06/04/17 11:30 07/04/17 11:29 06/09/17 09:14 Chlorhexidine Gluconate (Mireille-Hex 2%) 1 applic DAILY@1999 TOPIC 06/05/17 20:00 07/05/17 19:59 06/09/17 20:33 Clonidine HCl (Catapres Tab) 0.1 mg Q4H PRN ORAL bp over 160 syst 06/03/17 16:30 07/03/17 16:29 Dextrose (Dextrose 50%) STAT PRN IV Hypoglycemia 06/03/17 13:30 07/03/17 13:29 06/09/17 16:05 Docusate Sodium (Colace) 100 mg THREE TIMES A DAY ORAL 06/03/17 18:00 07/03/17 17:59 06/10/17 17:24 Lisinopril (Prinivil) 20 mg BID ORAL 06/04/17 09:00 07/04/17 08:59 06/10/17 17:24 Morphine Sulfate (Morphine Sulfate) 2 mg Q4H PRN IVP BREAKTHROUGH CHEST PAIN 06/10/17 07:00 06/17/17 06:59 Nitroglycerin (Ntg) 0.4 mg Q5M PRN SL Prn Chest Pain 06/04/17 09:15 07/04/17 09:14 06/05/17 00:34 Nitroglycerin (Ntg) 1 patch Q24H TDERMAL 06/04/17 11:30 07/04/17 11:29 06/10/17 12:46 Ondansetron HCl (Zofran) 4 mg Q6H PRN IVP Nausea & Vomiting 06/03/17 13:30 07/03/17 13:29 Pantoprazole (Protonix) 40 mg DAILY ORAL 06/03/17 17:00 07/03/17 16:59 06/10/17 08:50 Piperacillin Sod/ Tazobactam Sod 2.25 gm/Sodium Chloride 55 ml @ 110 mls/hr Q8H IVPB 06/07/17 16:00 06/14/17 15:59 06/10/17 17:23 Polyethylene Glycol (Miralax) 17 gm DAILYPRN PRN ORAL Constipation 06/03/17 13:30 07/03/17 13:29 Promethazine HCl/ Codeine (Phenergan with Codeine) 5 ml Q4H PRN ORAL For Cough 06/05/17 08:30 07/05/17 08:29 Sevelamer Carbonate (Renvela) 2,400 mg THREE TIMES A DAY ORAL 06/09/17 13:00 07/09/17 12:59 06/10/17 17:24 Temazepam (Restoril) 15 mg HSPRN PRN ORAL Insomnia 06/03/17 21:00 06/10/17 20:59 06/05/17 21:10 Vancomycin HCl (Vanco rx to dose) 1 ea DAILY PRN MISC Per rx protocol 06/04/17 12:45 07/04/17 12:44 Vancomycin HCl 1 gm/Dextrose 275 ml @ 183.708 mls/hr ONCE ONCE IVPB 06/10/17 23:00 06/11/17 00:29 Allergies: Coded Allergies: No Known Allergies (Unverified , 10/24/15) ROS Limited/Unobtainable: No Constitutional: Reports: no symptoms HEENT: Reports: no symptoms Cardiovascular: Reports: no symptoms Respiratory: Reports: cough, shortness of breath Gastrointestinal/Abdominal: Reports: no symptoms Genitourinary: Reports: no symptoms Neurologic/Psychiatric: Reports: no symptoms Subjective 57 YO M admitted with chest pain and shortness of breath. Now pneumonia and candelaria heart failure. On venturi mask. Cover for Int Med-Dr Weinstein. HIMANSHU Objective Last Vital Signs Date Time Temp Pulse Resp B/P (MAP) Pulse Ox O2 Delivery O2 Flow Rate FiO2 06/10/17 17:24 123/75 06/10/17 16:15 Venturi Mask 12.0 06/10/17 16:10 98.0 92 28 98.0 06/10/17 15:29 100 06/10/17 12:00 55 Laboratory Tests Test 06/10/17 04:00 06/10/17 08:10 06/10/17 12:00 White Blood Count 5.7 K/UL (4.8-10.8) 5.6 K/UL (4.8-10.8) Red Blood Count 2.55 M/UL (4.70-6.10) L 2.76 M/UL (4.70-6.10) L Hemoglobin 7.8 G/DL (14.2-18.0) L 8.2 G/DL (14.2-18.0) L Hematocrit 24.0 % (42.0-52.0) L 25.9 % (42.0-52.0) L Mean Corpuscular Volume 94 FL (80-99) 94 FL (80-99) Mean Corpuscular Hemoglobin 30.5 PG (27.0-31.0) 29.8 PG (27.0-31.0) Mean Corpuscular Hemoglobin Concent 32.4 G/DL (32.0-36.0) 31.8 G/DL (32.0-36.0) L Red Cell Distribution Width 16.1 % (11.6-14.8) H 16.4 % (11.6-14.8) H Platelet Count 94 K/UL (150-450) L 99 K/UL (150-450) L Mean Platelet Volume 7.5 FL (6.5-10.1) 6.8 FL (6.5-10.1) Neutrophils (%) (Auto) % (45.0-75.0) % (45.0-75.0) Lymphocytes (%) (Auto) % (20.0-45.0) % (20.0-45.0) Monocytes (%) (Auto) % (1.0-10.0) % (1.0-10.0) Eosinophils (%) (Auto) % (0.0-3.0) % (0.0-3.0) Basophils (%) (Auto) % (0.0-2.0) % (0.0-2.0) Differential Total Cells Counted 100 100 Neutrophils % (Manual) 67 % (45-75) 68 % (45-75) Lymphocytes % (Manual) 11 % (20-45) L 13 % (20-45) L Monocytes % (Manual) 15 % (1-10) H 17 % (1-10) H Eosinophils % (Manual) 5 % (0-3) H 2 % (0-3) Basophils % (Manual) 1 % (0-2) 0 % (0-2) Band Neutrophils 1 % (0-8) 0 % (0-8) Platelet Estimate Decreased L Decreased L Platelet Morphology Normal Normal Hypochromasia 3+ 2+ Anisocytosis 1+ 1+ Spherocytes 1+ Sodium Level 143 MMOL/L (136-145) 142 MMOL/L (136-145) Potassium Level 4.2 MMOL/L (3.5-5.1) 4.2 MMOL/L (3.5-5.1) Chloride Level 99 MMOL/L (98-107) 99 MMOL/L (98-107) Carbon Dioxide Level 33 MMOL/L (21-32) H 34 MMOL/L (21-32) H Anion Gap 11 mmol/L (5-15) 9 mmol/L (5-15) Blood Urea Nitrogen 59 mg/dL (7-18) H 59 mg/dL (7-18) H Creatinine 11.1 MG/DL (0.55-1.30) H 11.5 MG/DL (0.55-1.30) H Estimat Glomerular Filtration Rate 5.8 mL/min (>60) 5.6 mL/min (>60) Glucose Level 106 MG/DL (74-106) 115 MG/DL (74-106) H Uric Acid 5.8 MG/DL (2.6-7.2) Calcium Level 8.6 MG/DL (8.5-10.1) 8.8 MG/DL (8.5-10.1) Phosphorus Level 7.6 MG/DL (2.5-4.9) H Magnesium Level 2.1 MG/DL (1.8-2.4) Total Bilirubin 0.8 MG/DL (0.2-1.0) Aspartate Amino Transf (AST/SGOT) 86 U/L (15-37) H Alanine Aminotransferase (ALT/SGPT) 94 U/L (12-78) H Alkaline Phosphatase 125 U/L (46-116) H Pro-B-Type Natriuretic Peptide > 18862 pg/mL (0-125) H Total Protein 6.1 G/DL (6.4-8.2) L Albumin 2.1 G/DL (3.4-5.0) L Globulin 4.0 g/dL Albumin/Globulin Ratio 0.5 (1.0-2.7) L Random Vancomycin Level 22.1 ug/mL Intake and Output 06/09/17 06/10/17 19:00 07:00 Intake Total 655 ml 100 ml Output Total 400 ml Balance 655 ml -300 ml IV Total 55 ml 100 ml Blood Product 300 ml Other 300 ml Output Urine Total 400 ml # Voids 1 Objective General Appearance: WD/WN, alert, moderate distress EENT: PERRL/EOMI, normal ENT inspection Neck: non-tender, normal alignment, supple, normal inspection Cardiovascular: normal peripheral pulses, normal rate, regular rhythm, no gallop/murmur, no JVD Respiratory/Chest: venturi-mask; respiratory distress, crackles/rales, rhonchi - bilaterally, expiratory wheezing Abdomen: normal bowel sounds, non tender, soft, no organomegaly, no mass Extremities: normal range of motion 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 ?volume overload? Currently on nasal canula. See pulmonay note. (2) Pleuritic chest pain (3) Hemoptysis Assessment & Plan: Due to pneumonia (4) Pneumonia Assessment & Plan: RUL and cavitary. Concerning for TB. Await AFB cultures- see ID consult. Continue vanco and zosyn per ID (5) Shortness of breath (6) ESRD (end stage renal disease) on dialysis Assessment & Plan: See nephrology note. Hemodialysis 06/06/17 per nephrology (7) Hyperkalemia Assessment & Plan: Due to renal failure. Hemodialysis 06/06/17 per nephrology (8) COPD (chronic obstructive pulmonary disease) (9) HTN (hypertension) Assessment & Plan: Continue coreg and lisinopril. (10) CHF (congestive heart failure) (11) Elevated troponin Assessment & Plan: ?due to renal failure? See cardiology note. Status: not improved ZOEY PIRES Jun 10, 2017 19:37
[2017-06-10] MEDS: Dyna-Hex 2% Top Sol 2oz TOPIC SCH (20:36)
--- NOTE | 2017-06-10 22:08 | General Progress Note ---
Assessment/Plan Assessment/Plan Assessment - Anemia - OB (+) Stool - R/O TB - ESRD/HD - DM - HTN - COPD - gallstones Recommendations - push po - monitor CBC - transfuse PRN - Acid blockade - Defer EGD/Colon a this time Subjective Allergies: Coded Allergies: No Known Allergies (Unverified , 10/24/15) Subjective Above noted seen earlier today no abdominal complaints tolerating PO Objective Last 24 Hour Vital Signs Date Time Temp Pulse Resp B/P (MAP) Pulse Ox O2 Delivery O2 Flow Rate FiO2 06/10/17 20:38 94 129/73 06/10/17 20:00 97.9 90 28 139/77 Venturi Mask 12.0 97.9 06/10/17 20:00 89 06/10/17 19:48 Venturi Mask 14.0 55 06/10/17 19:48 95 Venturi Mask 14.0 55 06/10/17 17:24 123/75 06/10/17 16:15 Venturi Mask 12.0 06/10/17 16:10 98.0 92 28 123/75 Venturi Mask 12.0 98.0 06/10/17 15:51 91 06/10/17 15:29 98.0 85 14 121/71 100 Venturi Mask 12.0 98.0 06/10/17 13:00 98.0 81 28 117/76 Venturi Mask 12.0 98.0 06/10/17 13:00 Venturi Mask 12.0 06/10/17 12:46 113/62 06/10/17 12:00 97.7 85 20 122/70 100 Venturi Mask 55 97.7 06/10/17 11:53 83 06/10/17 11:48 84 24 100 Venturi Mask 14.0 55 06/10/17 11:39 88 22 98 Venturi Mask 14.0 55 06/10/17 09:00 79 113/62 06/10/17 09:00 79 113/62 06/10/17 09:00 113/62 06/10/17 08:00 97.9 79 16 113/62 96 Bi-pap 50 97.9 06/10/17 07:54 80 06/10/17 07:49 Venturi Mask 14.0 55 06/10/17 07:48 95 Venturi Mask 14.0 55 3/6/18 04:31 84 23 100 Full Face 50 06/10/17 04:00 50 06/10/17 04:00 98.2 82 16 117/64 100 Bi-pap 98.2 06/10/17 04:00 82 06/10/17 02:36 85 24 96 Full Face 50 06/10/17 02:09 88 31 93 Full Face 50 06/10/17 00:39 96 24 78 Full Face 50 06/10/17 00:00 55 06/10/17 00:00 90 06/09/17 23:59 99.1 86 16 107/61 95 Bi-pap 99.1 06/09/17 22:32 98 32 88 Full Face 50 Intake and Output 06/09/17 06/10/17 19:00 07:00 Intake Total 655 ml 100 ml Output Total 400 ml Balance 655 ml -300 ml IV Total 55 ml 100 ml Blood Product 300 ml Other 300 ml Output Urine Total 400 ml # Voids 1 Laboratory Tests 06/10/17 04:00: White Blood Count 5.7, Red Blood Count 2.55L, Hemoglobin 7.8L, Hematocrit 24.0L , Mean Corpuscular Volume 94, Mean Corpuscular Hemoglobin 30.5, Mean Corpuscular Hemoglobin Concent 32.4, Red Cell Distribution Width 16.1H, Platelet Count 94L, Mean Platelet Volume 7.5, Neutrophils (%) (Auto) , Lymphocytes (%) (Auto) , Monocytes (%) (Auto) , Eosinophils (%) (Auto) , Basophils (%) (Auto) , Differential Total Cells Counted 100, Neutrophils % ( Manual) 67, Lymphocytes % (Manual) 11L, Monocytes % (Manual) 15H, Eosinophils % (Manual) 5H, Basophils % (Manual) 1, Band Neutrophils 1, Platelet Estimate DecreasedL, Platelet Morphology Normal, Hypochromasia 3+, Anisocytosis 1+, Spherocytes 1+, Sodium Level 143, Potassium Level 4.2, Chloride Level 99, Carbon Dioxide Level 33H, Anion Gap 11, Blood Urea Nitrogen 59H, Creatinine 11.1H, Estimat Glomerular Filtration Rate 5.8, Glucose Level 106, Uric Acid 5.8 , Calcium Level 8.6, Phosphorus Level 7.6H, Magnesium Level 2.1, Total Bilirubin 0.8, Aspartate Amino Transf (AST/SGOT) 86H, Alanine Aminotransferase ( ALT/SGPT) 94H, Alkaline Phosphatase 125H, Pro-B-Type Natriuretic Peptide > 58545Y, Total Protein 6.1L, Albumin 2.1L, Globulin 4.0, Albumin/Globulin Ratio 0.5L 06/10/17 08:10: White Blood Count 5.6, Red Blood Count 2.76L, Hemoglobin 8.2L, Hematocrit 25.9L , Mean Corpuscular Volume 94, Mean Corpuscular Hemoglobin 29.8, Mean Corpuscular Hemoglobin Concent 31.8L, Red Cell Distribution Width 16.4H, Platelet Count 99L, Mean Platelet Volume 6.8, Neutrophils (%) (Auto) , Lymphocytes (%) (Auto) , Monocytes (%) (Auto) , Eosinophils (%) (Auto) , Basophils (%) (Auto) , Differential Total Cells Counted 100, Neutrophils % ( Manual) 68, Lymphocytes % (Manual) 13L, Monocytes % (Manual) 17H, Eosinophils % (Manual) 2, Basophils % (Manual) 0, Band Neutrophils 0, Platelet Estimate DecreasedL, Platelet Morphology Normal, Hypochromasia 2+, Anisocytosis 1+, Sodium Level 142, Potassium Level 4.2, Chloride Level 99, Carbon Dioxide Level 34H, Anion Gap 9, Blood Urea Nitrogen 59H, Creatinine 11.5H, Estimat Glomerular Filtration Rate 5.6, Glucose Level 115H, Calcium Level 8.8 06/10/17 12:00: Random Vancomycin Level 22.1 Height (Feet): 5 Height (Inches): 7.00 Weight (Pounds): 222 Objective WDWN AA Man NCAT supple CTA RRR Soft NT ND No edema PERCY JOYNER Jun 10, 2017 22:08
[2017-06-10] MEDS ORDERED: Vancomycin 1gm/D5W 275ml IVPB ONE ×2 (23:00)
[2017-06-11] VITALS (7 sets, daily range): BP systolic 100–149; BP diastolic 59–90
[2017-06-11] MEDS: Morphine Sulfate 2mg/ml Inj IVP PRN ×2 (00:18→22:27)
[2017-06-11] MEDS: Piperacillin/Tazobactam 2.25 GM in NS 55 ML IVPB SCH ×3 (00:33→17:33)
[2017-06-11 07:00] LABS: HEMATOCRIT 24.9 % (42.0-52.0); HEMOGLOBIN 7.9 G/DL (14.2-18.0); MEAN CORPUSCULAR VOLUME 95 FL (80-99); PLATELET COUNT 98 K/UL (150-450); RED BLOOD COUNT 2.63 M/UL (4.70-6.10); RED CELL DISTRIBUTION WIDTH 16.6 % (11.6-14.8); WHITE BLOOD COUNT 5.3 K/UL (4.8-10.8)
--- NOTE | 2017-06-11 07:13 | Pulmonology Progress Note ---
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 Sputum shows only charli continue abx hold heparin for low PLT f/u wbc and cultures Subjective Interval Events: off bipap, since yestrday, still confused Allergies: Coded Allergies: No Known Allergies (Unverified , 10/24/15) Objective Last 24 Hour Vital Signs Date Time Temp Pulse Resp B/P (MAP) Pulse Ox O2 Delivery O2 Flow Rate FiO2 06/11/17 04:00 98.2 90 28 149/90 Venturi Mask 12.0 98.2 06/11/17 04:00 90 06/11/17 00:48 97.9 06/11/17 00:18 97.9 06/11/17 00:00 99.1 87 28 131/84 Venturi Mask 12.0 99.1 06/11/17 00:00 87 06/10/17 20:38 94 129/73 06/10/17 20:00 97.9 90 28 139/77 Venturi Mask 12.0 97.9 06/10/17 20:00 89 06/10/17 19:48 Venturi Mask 14.0 55 06/10/17 19:48 95 Venturi Mask 14.0 55 06/10/17 17:24 123/75 06/10/17 16:15 Venturi Mask 12.0 06/10/17 16:10 98.0 92 28 123/75 Venturi Mask 12.0 98.0 06/10/17 15:51 91 06/10/17 15:29 98.0 85 14 121/71 100 Venturi Mask 12.0 98.0 06/10/17 13:00 98.0 81 28 117/76 Venturi Mask 12.0 98.0 06/10/17 13:00 Venturi Mask 12.0 06/10/17 12:46 113/62 06/10/17 12:00 97.7 85 20 122/70 100 Venturi Mask 55 97.7 06/10/17 11:53 83 06/10/17 11:48 84 24 100 Venturi Mask 14.0 55 06/10/17 11:39 88 22 98 Venturi Mask 14.0 55 06/10/17 09:00 79 113/62 06/10/17 09:00 79 113/62 06/10/17 09:00 113/62 06/10/17 08:00 97.9 79 16 113/62 96 Bi-pap 50 97.9 06/10/17 07:54 80 06/10/17 07:49 Venturi Mask 14.0 55 06/10/17 07:48 95 Venturi Mask 14.0 55 Intake and Output 06/10/17 06/11/17 19:00 07:00 Intake Total 410 ml 140 ml Output Total 3000 ml Balance -2590 ml 140 ml Intake Oral 300 ml 30 ml IV Total 110 ml 110 ml Hemodialysis UF 3000 ml General Appearance: WD/WN HEENT: normocephalic, atraumatic Respiratory/Chest: chest wall non-tender, lungs clear Cardiovascular: normal peripheral pulses, normal rate Genitourinary: normal external genitalia Extremities: no cyanosis Skin: no rash 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 Lymphatic: no neck adenopathy Laboratory Tests 06/10/17 08:10: White Blood Count 5.6, Red Blood Count 2.76L, Hemoglobin 8.2L, Hematocrit 25.9L , Mean Corpuscular Volume 94, Mean Corpuscular Hemoglobin 29.8, Mean Corpuscular Hemoglobin Concent 31.8L, Red Cell Distribution Width 16.4H, Platelet Count 99L, Mean Platelet Volume 6.8, Neutrophils (%) (Auto) , Lymphocytes (%) (Auto) , Monocytes (%) (Auto) , Eosinophils (%) (Auto) , Basophils (%) (Auto) , Differential Total Cells Counted 100, Neutrophils % ( Manual) 68, Lymphocytes % (Manual) 13L, Monocytes % (Manual) 17H, Eosinophils % (Manual) 2, Basophils % (Manual) 0, Band Neutrophils 0, Platelet Estimate DecreasedL, Platelet Morphology Normal, Hypochromasia 2+, Anisocytosis 1+, Sodium Level 142, Potassium Level 4.2, Chloride Level 99, Carbon Dioxide Level 34H, Anion Gap 9, Blood Urea Nitrogen 59H, Creatinine 11.5H, Estimat Glomerular Filtration Rate 5.6, Glucose Level 115H, Calcium Level 8.8 06/10/17 12:00: Random Vancomycin Level 22.1 06/11/17 04:00: White Blood Count 5.3, Red Blood Count 2.63L, Hemoglobin 7.9L, Hematocrit 24.9L , Mean Corpuscular Volume 95, Mean Corpuscular Hemoglobin 29.9, Mean Corpuscular Hemoglobin Concent 31.6L, Red Cell Distribution Width 16.6H, Platelet Count 98L, Mean Platelet Volume 7.6, Neutrophils (%) (Auto) , Lymphocytes (%) (Auto) , Monocytes (%) (Auto) , Eosinophils (%) (Auto) , Basophils (%) (Auto) , Neutrophils % (Manual) [Pending], Lymphocytes % (Manual) [Pending], Platelet Estimate [Pending], Platelet Morphology [Pending], Sodium Level [Pending], Potassium Level [Pending], Chloride Level [Pending], Carbon Dioxide Level [Pending], Blood Urea Nitrogen [Pending], Creatinine [Pending], Estimat Glomerular Filtration Rate [Pending], Glucose Level [Pending], Calcium Level [Pending], Phosphorus Level [Pending], Magnesium Level [Pending], Total Bilirubin [Pending], Aspartate Amino Transf (AST/SGOT) [Pending], Alanine Aminotransferase (ALT/SGPT) [Pending], Alkaline Phosphatase [Pending], Total Protein [Pending], Albumin [Pending], Globulin [Pending] Current Medications Medications (Trade) Dose Ordered Sig/Jose Route PRN Reason Start Time Stop Time Status Last Admin Dose Admin Acetaminophen (Tylenol) 650 mg Q4H PRN RECTAL Mild Pain (Pain Scale 1-3) 06/09/17 16:30 07/09/17 16:29 06/09/17 16:37 Albuterol/ Ipratropium (Albuterol/ Ipratropium) 3 ml Q4H PRN HHN Shortness of Breath 06/07/17 09:30 06/12/17 23:59 06/10/17 11:39 Alprazolam (Xanax) 2 mg BID ORAL 06/04/17 18:00 06/11/17 17:59 06/10/17 17:23 Alprazolam (Xanax) 2 mg DAILYPRN PRN ORAL For Anxiety 06/04/17 12:00 06/11/17 11:59 06/10/17 04:03 Amlodipine Besylate (Norvasc) 2.5 mg DAILY ORAL 06/08/17 09:00 07/08/17 08:59 06/09/17 09:13 Aripiprazole (Abilify) 15 mg DAILY ORAL 06/04/17 09:00 07/04/17 08:59 06/10/17 08:50 Aspirin (ASA) 81 mg DAILY ORAL 06/04/17 09:30 07/04/17 09:29 06/10/17 08:51 Bupropion HCl (Wellbutrin) 100 mg BID ORAL 06/03/17 18:00 07/03/17 17:59 06/10/17 17:24 Carisoprodol (Soma) 350 mg BID ORAL 06/04/17 18:00 07/04/17 17:59 06/10/17 17:25 Carisoprodol (Soma) 350 mg Q6H PRN ORAL MUSCLE SPASMS 06/03/17 13:30 07/03/17 13:29 Carvedilol (Coreg) 25 mg EVERY 12 HOURS ORAL 06/04/17 11:30 07/04/17 11:29 06/10/17 20:38 Chlorhexidine Gluconate (Mireille-Hex 2%) 1 applic DAILY@2000 TOPIC 06/05/17 20:00 07/05/17 19:59 06/10/17 20:36 Clonidine HCl (Catapres Tab) 0.1 mg Q4H PRN ORAL bp over 160 syst 06/03/17 16:30 07/03/17 16:29 Dextrose (Dextrose 50%) STAT PRN IV Hypoglycemia 06/03/17 13:30 07/03/17 13:29 06/09/17 16:05 Docusate Sodium (Colace) 100 mg THREE TIMES A DAY ORAL 06/03/17 18:00 07/03/17 17:59 06/10/17 17:24 Lisinopril (Prinivil) 20 mg BID ORAL 06/04/17 09:00 07/04/17 08:59 06/10/17 17:24 Morphine Sulfate (Morphine Sulfate) 2 mg Q4H PRN IVP BREAKTHROUGH CHEST PAIN 06/10/17 07:00 06/17/17 06:59 06/11/17 00:18 Nitroglycerin (Ntg) 0.4 mg Q5M PRN SL Prn Chest Pain 06/04/17 09:15 07/04/17 09:14 06/05/17 00:34 Nitroglycerin (Ntg) 1 patch Q24H TDERMAL 06/04/17 11:30 07/04/17 11:29 06/10/17 12:46 Ondansetron HCl (Zofran) 4 mg Q6H PRN IVP Nausea & Vomiting 06/03/17 13:30 07/03/17 13:29 Pantoprazole (Protonix) 40 mg DAILY ORAL 06/03/17 17:00 07/03/17 16:59 06/10/17 08:50 Piperacillin Sod/ Tazobactam Sod 2.25 gm/Sodium Chloride 55 ml @ 110 mls/hr Q8H IVPB 06/07/17 16:00 06/14/17 15:59 06/11/17 00:33 Polyethylene Glycol (Miralax) 17 gm DAILYPRN PRN ORAL Constipation 06/03/17 13:30 07/03/17 13:29 Promethazine HCl/ Codeine (Phenergan with Codeine) 5 ml Q4H PRN ORAL For Cough 06/05/17 08:30 07/05/17 08:29 Sevelamer Carbonate (Renvela) 2,400 mg THREE TIMES A DAY ORAL 06/09/17 13:00 07/09/17 12:59 06/10/17 17:24 Vancomycin HCl (Vanco rx to dose) 1 ea DAILY PRN MISC Per rx protocol 06/04/17 12:45 07/04/17 12:44 MAICO SYED Jun 11, 2017 07:13
[2017-06-11 07:36] LABS: ALANINE AMINOTRANSFERASE 185 U/L (12-78); ALBUMIN 2.2 G/DL (3.4-5.0); ALBUMIN/GLOBULIN RATIO 0.5 (1.0-2.7); ALKALINE PHOSPHATASE 117 U/L (46-116); ANION GAP 8 mmol/L (5-15); ASPARTATE AMINO TRANSFERASE 159 U/L (15-37); BILIRUBIN,TOTAL 1.2 MG/DL (0.2-1.0); BLOOD UREA NITROGEN 38 mg/dL (7-18); CALCIUM 8.9 MG/DL (8.5-10.1); CARBON DIOXIDE 35 MMOL/L (21-32); CHLORIDE 100 MMOL/L (98-107); CREATININE 9.4 MG/DL (0.55-1.30); PHOSPHORUS 6.2 MG/DL (2.5-4.9); SODIUM 143 MMOL/L (136-145)
[2017-06-11 07:37] LABS: BILIRUBIN,DIRECT 0.5 MG/DL (0.0-0.3)
[2017-06-11] MEDS: Aspirin Baby 81mg ORAL SCH (08:03)
[2017-06-11] MEDS: Carvedilol 25mg Tab ORAL SCH ×2 (08:04→20:36)
[2017-06-11] MEDS: Docusate 100mg cap ORAL SCH ×3 (08:04→18:00)
[2017-06-11] MEDS: ALPRAZolam 0.5mg tab ORAL SCH (08:04)
[2017-06-11] MEDS: Lisinopril 20mg tab ORAL SCH ×2 (08:05→18:00)
--- NOTE | 2017-06-11 08:24 | Diagnostic Imaging Report ---
APPROVED REPORT CPT Code: 64628 Present Symptoms Comments: R/O DVT BILATERAL: Imaging reveals a patent deep venous system bilaterally. There is no evidence of thrombus within the femoral, popliteal or tibial segments. The greater saphenous veins are also within normal limits. Doppler indicates normal spontaneous flow within these segments.
--- NOTE | 2017-06-11 10:25 | General Progress Note ---
Assessment/Plan Assessment/Plan #. Anemia secondary to chronic disease. --> Hemoglobin levels above goal since recent transfusion. --> Continue to closely monitor and trend cbc daily. --> Anemia workup completed and reviewed. Iron 42, TIBC 180, Ferritin 593, B12 876. --> Ferritin is >500, hgb goal is >7 --> Anemia w/u has been reviewed --> ++Occult blood. Consider GI Services and Recs. #. Anemia of kidney disease --> HD as needed per nephrology team --> Monitor closely. #. Generalized body ache related to fluid overload. #. End-stage renal disease, on hemodialysis. #. Tachycardia, to be seen by Cardiology Service, isolated T-wave and ST- segment depression in V6. --> HR has been ~80-90bpm #. Elevated BNP, potentially related to underlying CKD. Subjective Date patient seen: Jun 10, 2017 Constitutional: Denies: no symptoms, chills, diaphoresis, fever, malaise, weakness, other HEENT: Denies: no symptoms, eye pain, blurred vision, tearing, double vision, ear pain, ear discharge, nose pain, nose congestion, throat pain, throat swelling, mouth pain, mouth swelling, other Cardiovascular: Denies: no symptoms, chest pain, edema, irregular heart rate, lightheadedness, palpitations, syncope, other Respiratory: Denies: no symptoms, cough, orthopnea, shortness of breath, SOB with excertion, SOB at rest, sputum, stridor, wheezing, other Gastrointestinal/Abdominal: Denies: no symptoms, abdomen distended, abdominal pain, black stools, tarry stools, blood in stool, constipated, diarrhea, difficulty swallowing, nausea, poor appetite, poor fluid intake, rectal bleeding , vomiting, other Genitourinary: Denies: no symptoms, burning, discharge, frequency, flank pain, hematuria, incontinence, pain, urgency, other Neurologic/Psychiatric: Denies: no symptoms, anxiety, depressed, emotional problems, headache, numbness, paresthesia, pre-existing deficit, seizure, tingling, tremors, weakness, other Hematologic/Lymphatic: Reports: anemia Allergies: Coded Allergies: No Known Allergies (Unverified , 10/24/15) Subjective Hematochezia detected. No acute distress. No fever. Objective Last 24 Hour Vital Signs Date Time Temp Pulse Resp B/P (MAP) Pulse Ox O2 Delivery O2 Flow Rate FiO2 06/11/17 08:05 82 142/75 06/11/17 08:05 142/75 06/11/17 08:04 82 142/75 06/11/17 07:53 98.9 82 18 142/75 95 Venturi Mask 55 98.9 06/11/17 07:46 Venturi Mask 14.0 55 06/11/17 07:45 94 Venturi Mask 14.0 55 06/11/17 07:45 83 06/11/17 04:00 98.2 90 28 149/90 Venturi Mask 12.0 98.2 06/11/17 04:00 90 06/11/17 00:48 97.9 06/11/17 00:18 97.9 06/11/17 00:00 99.1 87 28 131/84 Venturi Mask 12.0 99.1 06/11/17 00:00 87 06/10/17 20:38 94 129/73 06/10/17 20:00 97.9 90 28 139/77 Venturi Mask 12.0 97.9 06/10/17 20:00 89 06/10/17 19:48 Venturi Mask 14.0 55 06/10/17 19:48 95 Venturi Mask 14.0 55 06/10/17 17:24 123/75 06/10/17 16:15 Venturi Mask 12.0 06/10/17 16:10 98.0 92 28 123/75 Venturi Mask 12.0 98.0 06/10/17 15:51 91 06/10/17 15:29 98.0 85 14 121/71 100 Venturi Mask 12.0 98.0 06/10/17 13:00 98.0 81 28 117/76 Venturi Mask 12.0 98.0 06/10/17 13:00 Venturi Mask 12.0 06/10/17 12:46 113/62 06/10/17 12:00 97.7 85 20 122/70 100 Venturi Mask 55 97.7 06/10/17 11:53 83 06/10/17 11:48 84 24 100 Venturi Mask 14.0 55 06/10/17 11:39 88 22 98 Venturi Mask 14.0 55 Intake and Output 06/10/17 06/11/17 19:00 07:00 Intake Total 410 ml 140 ml Output Total 3000 ml Balance -2590 ml 140 ml Intake Oral 300 ml 30 ml IV Total 110 ml 110 ml Hemodialysis UF 3000 ml Laboratory Tests 06/10/17 12:00: Random Vancomycin Level 22.1 06/11/17 04:00: White Blood Count 5.3, Red Blood Count 2.63L, Hemoglobin 7.9L, Hematocrit 24.9L , Mean Corpuscular Volume 95, Mean Corpuscular Hemoglobin 29.9, Mean Corpuscular Hemoglobin Concent 31.6L, Red Cell Distribution Width 16.6H, Platelet Count 98L, Mean Platelet Volume 7.6, Neutrophils (%) (Auto) , Lymphocytes (%) (Auto) , Monocytes (%) (Auto) , Eosinophils (%) (Auto) , Basophils (%) (Auto) , Differential Total Cells Counted 100, Neutrophils % ( Manual) 64, Lymphocytes % (Manual) 16L, Monocytes % (Manual) 17H, Eosinophils % (Manual) 2, Basophils % (Manual) 1, Band Neutrophils 0, Platelet Estimate DecreasedL, Platelet Morphology Normal, Hypochromasia 3+, Anisocytosis 1+, Sodium Level 143, Potassium Level 4.0, Chloride Level 100, Carbon Dioxide Level 35H, Anion Gap 8, Blood Urea Nitrogen 38H, Creatinine 9.4H, Estimat Glomerular Filtration Rate 7.0, Glucose Level 78, Calcium Level 8.9, Phosphorus Level 6.2H , Magnesium Level 1.9, Total Bilirubin 1.2H, Direct Bilirubin 0.5H, Aspartate Amino Transf (AST/SGOT) 159H, Alanine Aminotransferase (ALT/SGPT) 185H, Alkaline Phosphatase 117H, Total Protein 6.4, Albumin 2.2L, Globulin 4.2, Albumin/Globulin Ratio 0.5L Height (Feet): 5 Height (Inches): 7.00 Weight (Pounds): 224 Irving Parker Jun 11, 2017 10:25
--- NOTE | 2017-06-11 11:09 | Diagnostic Imaging Report ---
Indication: Dyspnea Comparison: 06/09/2017 A single view chest radiograph was obtained. Findings: Cardiomegaly, cephalized and prominent pulmonary vessels and interstitial edema appear worse. In addition there is airspace disease in the right perihilar region/right upper lobe. Pacemaker again noted. Right jugular line is stable. IMPRESSION: Evidence of worsening CHF/interstitial edema. Superimposed pneumonia not excluded
--- NOTE | 2017-06-11 11:27 | Internal Med Progress Note ---
Subjective Date of Service: Jun 11, 2017 Physician Name Zoey Pires Attending Physician Chaitanya Weinstein MD Current Medications Medications (Trade) Dose Ordered Sig/Jose Route PRN Reason Start Time Stop Time Status Last Admin Dose Admin Acetaminophen (Tylenol) 650 mg Q4H PRN RECTAL Mild Pain (Pain Scale 1-3) 06/09/17 16:30 07/09/17 16:29 06/09/17 16:37 Albuterol/ Ipratropium (Albuterol/ Ipratropium) 3 ml Q4H PRN HHN Shortness of Breath 06/07/17 09:30 06/12/17 23:59 06/10/17 11:39 Alprazolam (Xanax) 2 mg BID ORAL 06/04/17 18:00 06/11/17 17:59 06/11/17 08:04 Alprazolam (Xanax) 2 mg DAILYPRN PRN ORAL For Anxiety 06/04/17 12:00 06/11/17 11:59 06/10/17 04:03 Amlodipine Besylate (Norvasc) 2.5 mg DAILY ORAL 06/08/17 09:00 07/08/17 08:59 06/11/17 08:05 Aripiprazole (Abilify) 15 mg DAILY ORAL 06/04/17 09:00 07/04/17 08:59 06/11/17 08:04 Aspirin (ASA) 81 mg DAILY ORAL 06/04/17 09:30 07/04/17 09:29 06/11/17 08:03 Bupropion HCl (Wellbutrin) 100 mg BID ORAL 06/03/17 18:00 07/03/17 17:59 06/11/17 08:04 Carisoprodol (Soma) 350 mg BID ORAL 06/04/17 18:00 07/04/17 17:59 06/11/17 08:05 Carisoprodol (Soma) 350 mg Q6H PRN ORAL MUSCLE SPASMS 06/03/17 13:30 07/03/17 13:29 Carvedilol (Coreg) 25 mg EVERY 12 HOURS ORAL 06/04/17 11:30 07/04/17 11:29 06/11/17 08:04 Chlorhexidine Gluconate (Mireille-Hex 2%) 1 applic DAILY@1999 TOPIC 06/05/17 20:00 07/05/17 19:59 06/10/17 20:36 Clonidine HCl (Catapres Tab) 0.1 mg Q4H PRN ORAL bp over 160 syst 06/03/17 16:30 07/03/17 16:29 Dextrose (Dextrose 50%) STAT PRN IV Hypoglycemia 06/03/17 13:30 07/03/17 13:29 06/09/17 16:05 Docusate Sodium (Colace) 100 mg THREE TIMES A DAY ORAL 06/03/17 18:00 07/03/17 17:59 06/11/17 08:04 Lisinopril (Prinivil) 20 mg BID ORAL 06/04/17 09:00 07/04/17 08:59 06/11/17 08:05 Morphine Sulfate (Morphine Sulfate) 2 mg Q4H PRN IVP BREAKTHROUGH CHEST PAIN 06/10/17 07:00 06/17/17 06:59 06/11/17 00:18 Nitroglycerin (Ntg) 0.4 mg Q5M PRN SL Prn Chest Pain 06/04/17 09:15 07/04/17 09:14 06/05/17 00:34 Nitroglycerin (Ntg) 1 patch Q24H TDERMAL 06/04/17 11:30 07/04/17 11:29 06/10/17 12:46 Ondansetron HCl (Zofran) 4 mg Q6H PRN IVP Nausea & Vomiting 06/03/17 13:30 07/03/17 13:29 Pantoprazole (Protonix) 40 mg DAILY ORAL 06/03/17 17:00 07/03/17 16:59 06/11/17 08:06 Piperacillin Sod/ Tazobactam Sod 2.25 gm/Sodium Chloride 55 ml @ 110 mls/hr Q8H IVPB 06/07/17 16:00 06/14/17 15:59 06/11/17 08:03 Polyethylene Glycol (Miralax) 17 gm DAILYPRN PRN ORAL Constipation 06/03/17 13:30 07/03/17 13:29 Promethazine HCl/ Codeine (Phenergan with Codeine) 5 ml Q4H PRN ORAL For Cough 06/05/17 08:30 07/05/17 08:29 Sevelamer Carbonate (Renvela) 2,400 mg THREE TIMES A DAY ORAL 06/09/17 13:00 07/09/17 12:59 06/11/17 08:04 Vancomycin HCl (Vanco rx to dose) 1 ea DAILY PRN MISC Per rx protocol 06/04/17 12:45 07/04/17 12:44 Allergies: Coded Allergies: No Known Allergies (Unverified , 10/24/15) ROS Limited/Unobtainable: No Constitutional: Reports: no symptoms HEENT: Reports: no symptoms Cardiovascular: Reports: no symptoms Respiratory: Reports: shortness of breath Gastrointestinal/Abdominal: Reports: no symptoms Genitourinary: Reports: no symptoms Neurologic/Psychiatric: Reports: no symptoms Subjective 57 YO M admitted with chest pain and shortness of breath. Now pneumonia and candelaria heart failure. On venturi mask. Cover for Int Med-Dr Weinstein. HIMANSHU Objective Last Vital Signs Date Time Temp Pulse Resp B/P (MAP) Pulse Ox O2 Delivery O2 Flow Rate FiO2 06/11/17 08:05 82 142/75 06/11/17 07:53 98.9 18 95 Venturi Mask 55 98.9 06/11/17 07:46 14.0 Laboratory Tests Test 06/10/17 12:00 06/11/17 04:00 Random Vancomycin Level 22.1 ug/mL White Blood Count 5.3 K/UL (4.8-10.8) Red Blood Count 2.63 M/UL (4.70-6.10) L Hemoglobin 7.9 G/DL (14.2-18.0) L Hematocrit 24.9 % (42.0-52.0) L Mean Corpuscular Volume 95 FL (80-99) Mean Corpuscular Hemoglobin 29.9 PG (27.0-31.0) Mean Corpuscular Hemoglobin Concent 31.6 G/DL (32.0-36.0) L Red Cell Distribution Width 16.6 % (11.6-14.8) H Platelet Count 98 K/UL (150-450) L Mean Platelet Volume 7.6 FL (6.5-10.1) Neutrophils (%) (Auto) % (45.0-75.0) Lymphocytes (%) (Auto) % (20.0-45.0) Monocytes (%) (Auto) % (1.0-10.0) Eosinophils (%) (Auto) % (0.0-3.0) Basophils (%) (Auto) % (0.0-2.0) Differential Total Cells Counted 100 Neutrophils % (Manual) 64 % (45-75) Lymphocytes % (Manual) 16 % (20-45) L Monocytes % (Manual) 17 % (1-10) H Eosinophils % (Manual) 2 % (0-3) Basophils % (Manual) 1 % (0-2) Band Neutrophils 0 % (0-8) Platelet Estimate Decreased L Platelet Morphology Normal Hypochromasia 3+ Anisocytosis 1+ Sodium Level 143 MMOL/L (136-145) Potassium Level 4.0 MMOL/L (3.5-5.1) Chloride Level 100 MMOL/L (98-107) Carbon Dioxide Level 35 MMOL/L (21-32) H Anion Gap 8 mmol/L (5-15) Blood Urea Nitrogen 38 mg/dL (7-18) H Creatinine 9.4 MG/DL (0.55-1.30) H Estimat Glomerular Filtration Rate 7.0 mL/min (>60) Glucose Level 78 MG/DL (74-106) Calcium Level 8.9 MG/DL (8.5-10.1) Phosphorus Level 6.2 MG/DL (2.5-4.9) H Magnesium Level 1.9 MG/DL (1.8-2.4) Total Bilirubin 1.2 MG/DL (0.2-1.0) H Direct Bilirubin 0.5 MG/DL (0.0-0.3) H Aspartate Amino Transf (AST/SGOT) 159 U/L (15-37) H Alanine Aminotransferase (ALT/SGPT) 185 U/L (12-78) H Alkaline Phosphatase 117 U/L (46-116) H Total Protein 6.4 G/DL (6.4-8.2) Albumin 2.2 G/DL (3.4-5.0) L Globulin 4.2 g/dL Albumin/Globulin Ratio 0.5 (1.0-2.7) L Intake and Output 06/10/17 06/11/17 19:00 07:00 Intake Total 410 ml 140 ml Output Total 3000 ml Balance -2590 ml 140 ml Intake Oral 300 ml 30 ml IV Total 110 ml 110 ml Hemodialysis UF 3000 ml Objective General Appearance: WD/WN, alert, moderate distress EENT: PERRL/EOMI, normal ENT inspection Neck: non-tender, normal alignment, supple, normal inspection Cardiovascular: normal peripheral pulses, normal rate, regular rhythm, no gallop/murmur, no JVD Respiratory/Chest: venturi-mask; respiratory distress, crackles/rales, rhonchi - bilaterally, expiratory wheezing Abdomen: normal bowel sounds, non tender, soft, no organomegaly, no mass Extremities: normal range of motion 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 ?volume overload? Currently on nasal canula. See pulmonay note. (2) Pleuritic chest pain (3) Hemoptysis Assessment & Plan: Due to pneumonia (4) Pneumonia Assessment & Plan: RUL and cavitary. Concerning for TB. Await AFB cultures- see ID consult. Continue vanco and zosyn per ID (5) Shortness of breath (6) ESRD (end stage renal disease) on dialysis Assessment & Plan: See nephrology note. Hemodialysis 06/06/17 per nephrology (7) Hyperkalemia Assessment & Plan: Due to renal failure. Hemodialysis 06/06/17 per nephrology (8) COPD (chronic obstructive pulmonary disease) (9) HTN (hypertension) Assessment & Plan: Continue coreg and lisinopril. (10) CHF (congestive heart failure) (11) Elevated troponin Assessment & Plan: ?due to renal failure? See cardiology note. Status: not improved ZOEY PIRES Jun 11, 2017 11:27
[2017-06-11] MEDS: Nitroglycerin Patch 0.4mg TDERMAL SCH (12:22)
--- NOTE | 2017-06-11 13:06 | Nephrology Progress Note ---
Assessment/Plan Problem List: (1) ESRD (end stage renal disease) on dialysis (2) Shortness of breath (3) Anemia Assessment ESRD , missed HD , admitted with high K and pulmonary edema Acute respiratory distress due to volume overload elevated troponin r/o ACS h/o COPD ? exacerbation HTN urgency Cardiomyopathy L AICD anemia of chronic kidney disease Hx of CVA Plan Plan: HD next 06/12 Transfused Phos binders BP meds adjustment Optimize cardiac status per orders Subjective ROS Limited/Unobtainable: No Constitutional: Reports: malaise Objective Objective Last 24 Hour Vital Signs Date Time Temp Pulse Resp B/P (MAP) Pulse Ox O2 Delivery O2 Flow Rate FiO2 06/11/17 12:22 133/69 06/11/17 12:00 97.5 68 22 133/69 95 Venturi Mask 55 97.5 06/11/17 08:05 82 142/75 06/11/17 08:05 142/75 06/11/17 08:04 82 142/75 06/11/17 07:53 98.9 82 18 142/75 95 Venturi Mask 55 98.9 06/11/17 07:46 Venturi Mask 14.0 55 06/11/17 07:45 94 Venturi Mask 14.0 55 06/11/17 07:45 83 06/11/17 04:00 98.2 90 28 149/90 Venturi Mask 12.0 98.2 06/11/17 04:00 90 06/11/17 00:48 97.9 06/11/17 00:18 97.9 06/11/17 00:00 99.1 87 28 131/84 Venturi Mask 12.0 99.1 06/11/17 00:00 87 06/10/17 20:38 94 129/73 06/10/17 20:00 97.9 90 28 139/77 Venturi Mask 12.0 97.9 06/10/17 20:00 89 06/10/17 19:48 Venturi Mask 14.0 55 06/10/17 19:48 95 Venturi Mask 14.0 55 06/10/17 17:24 123/75 06/10/17 16:15 Venturi Mask 12.0 06/10/17 16:10 98.0 92 28 123/75 Venturi Mask 12.0 98.0 06/10/17 15:51 91 06/10/17 15:29 98.0 85 14 121/71 100 Venturi Mask 12.0 98.0 Intake and Output 06/10/17 06/11/17 19:00 07:00 Intake Total 410 ml 140 ml Output Total 3000 ml Balance -2590 ml 140 ml Intake Oral 300 ml 30 ml IV Total 110 ml 110 ml Hemodialysis UF 3000 ml Laboratory Tests 06/11/17 04:00: White Blood Count 5.3, Red Blood Count 2.63L, Hemoglobin 7.9L, Hematocrit 24.9L , Mean Corpuscular Volume 95, Mean Corpuscular Hemoglobin 29.9, Mean Corpuscular Hemoglobin Concent 31.6L, Red Cell Distribution Width 16.6H, Platelet Count 98L, Mean Platelet Volume 7.6, Neutrophils (%) (Auto) , Lymphocytes (%) (Auto) , Monocytes (%) (Auto) , Eosinophils (%) (Auto) , Basophils (%) (Auto) , Differential Total Cells Counted 100, Neutrophils % ( Manual) 64, Lymphocytes % (Manual) 16L, Monocytes % (Manual) 17H, Eosinophils % (Manual) 2, Basophils % (Manual) 1, Band Neutrophils 0, Platelet Estimate DecreasedL, Platelet Morphology Normal, Hypochromasia 3+, Anisocytosis 1+, Sodium Level 143, Potassium Level 4.0, Chloride Level 100, Carbon Dioxide Level 35H, Anion Gap 8, Blood Urea Nitrogen 38H, Creatinine 9.4H, Estimat Glomerular Filtration Rate 7.0, Glucose Level 78, Calcium Level 8.9, Phosphorus Level 6.2H , Magnesium Level 1.9, Total Bilirubin 1.2H, Direct Bilirubin 0.5H, Aspartate Amino Transf (AST/SGOT) 159H, Alanine Aminotransferase (ALT/SGPT) 185H, Alkaline Phosphatase 117H, Total Protein 6.4, Albumin 2.2L, Globulin 4.2, Albumin/Globulin Ratio 0.5L Height (Feet): 5 Height (Inches): 7.00 Weight (Pounds): 224 General Appearance: no apparent distress Objective no change LIAM MONTELONGO Jun 11, 2017 13:06
--- NOTE | 2017-06-11 14:25 | Infectious Diseases Prog Note ---
Assessment/Plan Assessment/Plan ASSESSMENT: The patient is a 57-year-old male with, Low-grade fever, SP Status post leukocytosis. Influenza A and B screen negative. Pneumonia with possible cavitary lesion/hemoptysis. SCx: Neg T-SPOT :Neg AFB x 3 : Neg MTB PCR x2 : neg cryptococcus Ag : neg CT: 7.8 x 5.3 x 6.6 cm dense opacity in the posterior inferior right upper lobe with a central cavitation. Chest x-ray : right mid lung infiltrate, possible cavitation Rule out tuberculosis, fungal infection, or necrotizing pneumonia. CRP 14 Influenza negative HIV : NEG Seizure disorder History of CVA History of pacemaker placement Hyperlipidemia Hypertension COPD/asthma End-stage renal disease, on hemodialysis Diabetes Anxiety Anemia Echo, ejection fraction 45% to 50%. PLAN: Patient on Zosyn, vancomycin day # 8 duration unknown at this time, ( depending on repeat CT result ) SP 3/4 SP Zithromax D# 6 sputum culture (bacterial, fungal, and AFB x3). sputum for AFB X 3 Coccidioidal . Galactomannan and Fungitell. Airborne isolation for now may need BAL , will defer this to Pul team CT of Chest Subjective Allergies: Coded Allergies: No Known Allergies (Unverified , 10/24/15) Subjective no new complain afebrile Objective Vital Signs Last 24 Hour Vital Signs Date Time Temp Pulse Resp B/P (MAP) Pulse Ox O2 Delivery O2 Flow Rate FiO2 06/11/17 13:34 97.8 72 18 122/74 91 Venturi Mask 97.8 06/11/17 12:22 133/69 06/11/17 12:00 97.5 68 22 133/69 95 Venturi Mask 55 97.5 06/11/17 11:42 69 06/11/17 08:05 82 142/75 06/11/17 08:05 142/75 06/11/17 08:04 82 142/75 06/11/17 07:53 98.9 82 18 142/75 95 Venturi Mask 55 98.9 06/11/17 07:46 Venturi Mask 14.0 55 06/11/17 07:45 94 Venturi Mask 14.0 55 06/11/17 07:45 83 06/11/17 04:00 98.2 90 28 149/90 Venturi Mask 12.0 98.2 06/11/17 04:00 90 06/11/17 00:48 97.9 06/11/17 00:18 97.9 06/11/17 00:00 99.1 87 28 131/84 Venturi Mask 12.0 99.1 06/11/17 00:00 87 06/10/17 20:38 94 129/73 06/10/17 20:00 97.9 90 28 139/77 Venturi Mask 12.0 97.9 06/10/17 20:00 89 06/10/17 19:48 Venturi Mask 14.0 55 06/10/17 19:48 95 Venturi Mask 14.0 55 06/10/17 17:24 123/75 06/10/17 16:15 Venturi Mask 12.0 06/10/17 16:10 98.0 92 28 123/75 Venturi Mask 12.0 98.0 06/10/17 15:51 91 06/10/17 15:29 98.0 85 14 121/71 100 Venturi Mask 12.0 98.0 Height (Feet): 5 Height (Inches): 7.00 Weight (Pounds): 224 HEENT: atraumatic Respiratory/Chest: no respiratory distress Cardiovascular: regular rhythm Laboratory Tests Test 06/11/17 04:00 White Blood Count 5.3 K/UL (4.8-10.8) Red Blood Count 2.63 M/UL (4.70-6.10) L Hemoglobin 7.9 G/DL (14.2-18.0) L Hematocrit 24.9 % (42.0-52.0) L Mean Corpuscular Volume 95 FL (80-99) Mean Corpuscular Hemoglobin 29.9 PG (27.0-31.0) Mean Corpuscular Hemoglobin Concent 31.6 G/DL (32.0-36.0) L Red Cell Distribution Width 16.6 % (11.6-14.8) H Platelet Count 98 K/UL (150-450) L Mean Platelet Volume 7.6 FL (6.5-10.1) Neutrophils (%) (Auto) % (45.0-75.0) Lymphocytes (%) (Auto) % (20.0-45.0) Monocytes (%) (Auto) % (1.0-10.0) Eosinophils (%) (Auto) % (0.0-3.0) Basophils (%) (Auto) % (0.0-2.0) Differential Total Cells Counted 100 Neutrophils % (Manual) 64 % (45-75) Lymphocytes % (Manual) 16 % (20-45) L Monocytes % (Manual) 17 % (1-10) H Eosinophils % (Manual) 2 % (0-3) Basophils % (Manual) 1 % (0-2) Band Neutrophils 0 % (0-8) Platelet Estimate Decreased L Platelet Morphology Normal Hypochromasia 3+ Anisocytosis 1+ Sodium Level 143 MMOL/L (136-145) Potassium Level 4.0 MMOL/L (3.5-5.1) Chloride Level 100 MMOL/L (98-107) Carbon Dioxide Level 35 MMOL/L (21-32) H Anion Gap 8 mmol/L (5-15) Blood Urea Nitrogen 38 mg/dL (7-18) H Creatinine 9.4 MG/DL (0.55-1.30) H Estimat Glomerular Filtration Rate 7.0 mL/min (>60) Glucose Level 78 MG/DL (74-106) Calcium Level 8.9 MG/DL (8.5-10.1) Phosphorus Level 6.2 MG/DL (2.5-4.9) H Magnesium Level 1.9 MG/DL (1.8-2.4) Total Bilirubin 1.2 MG/DL (0.2-1.0) H Direct Bilirubin 0.5 MG/DL (0.0-0.3) H Aspartate Amino Transf (AST/SGOT) 159 U/L (15-37) H Alanine Aminotransferase (ALT/SGPT) 185 U/L (12-78) H Alkaline Phosphatase 117 U/L (46-116) H Total Protein 6.4 G/DL (6.4-8.2) Albumin 2.2 G/DL (3.4-5.0) L Globulin 4.2 g/dL Albumin/Globulin Ratio 0.5 (1.0-2.7) L Current Medications Medications (Trade) Dose Ordered Sig/Jose Route PRN Reason Start Time Stop Time Status Last Admin Dose Admin Acetaminophen (Tylenol) 650 mg Q4H PRN RECTAL Mild Pain (Pain Scale 1-3) 06/09/17 16:30 07/09/17 16:29 06/09/17 16:37 Albuterol/ Ipratropium (Albuterol/ Ipratropium) 3 ml Q4H PRN HHN Shortness of Breath 06/07/17 09:30 06/12/17 23:59 06/10/17 11:39 Alprazolam (Xanax) 2 mg BID ORAL 06/04/17 18:00 06/11/17 17:59 06/11/17 08:04 Amlodipine Besylate (Norvasc) 2.5 mg DAILY ORAL 06/08/17 09:00 07/08/17 08:59 06/11/17 08:05 Aripiprazole (Abilify) 15 mg DAILY ORAL 06/04/17 09:00 07/04/17 08:59 06/11/17 08:04 Aspirin (ASA) 81 mg DAILY ORAL 06/04/17 09:30 07/04/17 09:29 06/11/17 08:03 Bupropion HCl (Wellbutrin) 100 mg BID ORAL 06/03/17 18:00 07/03/17 17:59 06/11/17 08:04 Carisoprodol (Soma) 350 mg BID ORAL 06/04/17 18:00 07/04/17 17:59 06/11/17 08:05 Carisoprodol (Soma) 350 mg Q6H PRN ORAL MUSCLE SPASMS 06/03/17 13:30 07/03/17 13:29 06/11/17 13:34 Carvedilol (Coreg) 25 mg EVERY 12 HOURS ORAL 06/04/17 11:30 07/04/17 11:29 06/11/17 08:04 Chlorhexidine Gluconate (Mireille-Hex 2%) 1 applic DAILY@1999 TOPIC 06/05/17 20:00 07/05/17 19:59 06/10/17 20:36 Clonidine HCl (Catapres Tab) 0.1 mg Q4H PRN ORAL bp over 160 syst 06/03/17 16:30 07/03/17 16:29 Dextrose (Dextrose 50%) STAT PRN IV Hypoglycemia 06/03/17 13:30 07/03/17 13:29 06/09/17 16:05 Docusate Sodium (Colace) 100 mg THREE TIMES A DAY ORAL 06/03/17 18:00 07/03/17 17:59 06/11/17 12:22 Lisinopril (Prinivil) 20 mg BID ORAL 06/04/17 09:00 07/04/17 08:59 06/11/17 08:05 Morphine Sulfate (Morphine Sulfate) 2 mg Q4H PRN IVP BREAKTHROUGH CHEST PAIN 06/10/17 07:00 06/17/17 06:59 06/11/17 00:18 Nitroglycerin (Ntg) 0.4 mg Q5M PRN SL Prn Chest Pain 06/04/17 09:15 07/04/17 09:14 06/05/17 00:34 Nitroglycerin (Ntg) 1 patch Q24H TDERMAL 06/04/17 11:30 07/04/17 11:29 06/11/17 12:22 Ondansetron HCl (Zofran) 4 mg Q6H PRN IVP Nausea & Vomiting 06/03/17 13:30 07/03/17 13:29 Pantoprazole (Protonix) 40 mg DAILY ORAL 06/03/17 17:00 07/03/17 16:59 06/11/17 08:06 Piperacillin Sod/ Tazobactam Sod 2.25 gm/Sodium Chloride 55 ml @ 110 mls/hr Q8H IVPB 06/07/17 16:00 06/14/17 15:59 06/11/17 08:03 Polyethylene Glycol (Miralax) 17 gm DAILYPRN PRN ORAL Constipation 06/03/17 13:30 07/03/17 13:29 Promethazine HCl/ Codeine (Phenergan with Codeine) 5 ml Q4H PRN ORAL For Cough 06/05/17 08:30 07/05/17 08:29 Sevelamer Carbonate (Renvela) 2,400 mg THREE TIMES A DAY ORAL 06/09/17 13:00 07/09/17 12:59 06/11/17 12:22 Vancomycin HCl (Vanco rx to dose) 1 ea DAILY PRN MISC Per rx protocol 06/04/17 12:45 07/04/17 12:44 PREET GUAJARDO M.D. Jun 11, 2017 14:24
--- NOTE | 2017-06-11 20:01 | Cardiology Progress Note ---
Assessment/Plan Assessment/Plan plueritic chest pain neg recent sig perfusion abn; systolic dysfunction on mild degree involving the septum cavitating lung lesion esrd htn anemia icd hx trop min abn related to esrd likely as no peak no jennifer venous duplex neg echo reviewed swma in septum (possible) as tech difficult study ef 45% dialysis per dr grimaldo bp better will dc norvasc for nwo Subjective Subjective sleepign on dialysis Objective Last 24 Hour Vital Signs Date Time Temp Pulse Resp B/P (MAP) Pulse Ox O2 Delivery O2 Flow Rate FiO2 06/11/17 19:42 61 26 94 Full Face 50 06/11/17 19:03 98 Venturi Mask 14.0 55 06/11/17 19:03 Venturi Mask 14.0 55 06/11/17 18:00 100/59 06/11/17 16:00 97.7 62 10 100/59 96 Venturi Mask 55 97.7 06/11/17 15:15 64 06/11/17 13:34 97.8 72 18 122/74 91 Venturi Mask 97.8 06/11/17 12:22 133/69 06/11/17 12:00 97.5 68 22 133/69 95 Venturi Mask 55 97.5 06/11/17 11:42 69 06/11/17 08:05 82 142/75 06/11/17 08:05 142/75 06/11/17 08:04 82 142/75 06/11/17 07:53 98.9 82 18 142/75 95 Venturi Mask 55 98.9 06/11/17 07:46 Venturi Mask 14.0 55 06/11/17 07:45 94 Venturi Mask 14.0 55 06/11/17 07:45 83 06/11/17 04:00 98.2 90 28 149/90 Venturi Mask 12.0 98.2 06/11/17 04:00 90 06/11/17 00:48 97.9 06/11/17 00:18 97.9 06/11/17 00:00 99.1 87 28 131/84 Venturi Mask 12.0 99.1 06/11/17 00:00 87 06/10/17 20:38 94 129/73 Intake and Output 06/10/17 06/11/17 19:00 07:00 Intake Total 410 ml 140 ml Output Total 3000 ml Balance -2590 ml 140 ml Intake Oral 300 ml 30 ml IV Total 110 ml 110 ml Hemodialysis UF 3000 ml Laboratory Tests Test 06/11/17 04:00 White Blood Count 5.3 K/UL (4.8-10.8) Red Blood Count 2.63 M/UL (4.70-6.10) L Hemoglobin 7.9 G/DL (14.2-18.0) L Hematocrit 24.9 % (42.0-52.0) L Mean Corpuscular Volume 95 FL (80-99) Mean Corpuscular Hemoglobin 29.9 PG (27.0-31.0) Mean Corpuscular Hemoglobin Concent 31.6 G/DL (32.0-36.0) L Red Cell Distribution Width 16.6 % (11.6-14.8) H Platelet Count 98 K/UL (150-450) L Mean Platelet Volume 7.6 FL (6.5-10.1) Neutrophils (%) (Auto) % (45.0-75.0) Lymphocytes (%) (Auto) % (20.0-45.0) Monocytes (%) (Auto) % (1.0-10.0) Eosinophils (%) (Auto) % (0.0-3.0) Basophils (%) (Auto) % (0.0-2.0) Differential Total Cells Counted 100 Neutrophils % (Manual) 64 % (45-75) Lymphocytes % (Manual) 16 % (20-45) L Monocytes % (Manual) 17 % (1-10) H Eosinophils % (Manual) 2 % (0-3) Basophils % (Manual) 1 % (0-2) Band Neutrophils 0 % (0-8) Platelet Estimate Decreased L Platelet Morphology Normal Hypochromasia 3+ Anisocytosis 1+ Sodium Level 143 MMOL/L (136-145) Potassium Level 4.0 MMOL/L (3.5-5.1) Chloride Level 100 MMOL/L (98-107) Carbon Dioxide Level 35 MMOL/L (21-32) H Anion Gap 8 mmol/L (5-15) Blood Urea Nitrogen 38 mg/dL (7-18) H Creatinine 9.4 MG/DL (0.55-1.30) H Estimat Glomerular Filtration Rate 7.0 mL/min (>60) Glucose Level 78 MG/DL (74-106) Calcium Level 8.9 MG/DL (8.5-10.1) Phosphorus Level 6.2 MG/DL (2.5-4.9) H Magnesium Level 1.9 MG/DL (1.8-2.4) Total Bilirubin 1.2 MG/DL (0.2-1.0) H Direct Bilirubin 0.5 MG/DL (0.0-0.3) H Aspartate Amino Transf (AST/SGOT) 159 U/L (15-37) H Alanine Aminotransferase (ALT/SGPT) 185 U/L (12-78) H Alkaline Phosphatase 117 U/L (46-116) H Total Protein 6.4 G/DL (6.4-8.2) Albumin 2.2 G/DL (3.4-5.0) L Globulin 4.2 g/dL Albumin/Globulin Ratio 0.5 (1.0-2.7) L PRECIOUS GARCIA Jun 11, 2017 20:01
--- NOTE | 2017-06-11 20:14 | General Progress Note ---
Assessment/Plan Assessment/Plan Assessment - Anemia - OB (+) Stool - R/O TB - ESRD/HD - DM - HTN - COPD - gallstones - rising LFT concerning Recommendations - push po - monitor LFT, check CK - minimize meds - hold psych meds for now - CT abd / Pelvis - transfuse PRN - Acid blockade - Defer EGD/Colon a this time Subjective Allergies: Coded Allergies: No Known Allergies (Unverified , 10/24/15) Subjective Above noted seen earlier today c/o abdominal distention Objective Last 24 Hour Vital Signs Date Time Temp Pulse Resp B/P (MAP) Pulse Ox O2 Delivery O2 Flow Rate FiO2 06/11/17 19:42 61 26 94 Full Face 50 06/11/17 19:03 98 Venturi Mask 14.0 55 06/11/17 19:03 Venturi Mask 14.0 55 06/11/17 18:00 100/59 06/11/17 16:00 97.7 62 10 100/59 96 Venturi Mask 55 97.7 06/11/17 15:15 64 06/11/17 13:34 97.8 72 18 122/74 91 Venturi Mask 97.8 06/11/17 12:22 133/69 06/11/17 12:00 97.5 68 22 133/69 95 Venturi Mask 55 97.5 06/11/17 11:42 69 06/11/17 08:05 82 142/75 06/11/17 08:05 142/75 06/11/17 08:04 82 142/75 06/11/17 07:53 98.9 82 18 142/75 95 Venturi Mask 55 98.9 06/11/17 07:46 Venturi Mask 14.0 55 06/11/17 07:45 94 Venturi Mask 14.0 55 06/11/17 07:45 83 06/11/17 04:00 98.2 90 28 149/90 Venturi Mask 12.0 98.2 06/11/17 04:00 90 06/11/17 00:48 97.9 06/11/17 00:18 97.9 06/11/17 00:00 99.1 87 28 131/84 Venturi Mask 12.0 99.1 06/11/17 00:00 87 06/10/17 20:38 94 129/73 Intake and Output 06/10/17 06/11/17 19:00 07:00 Intake Total 410 ml 140 ml Output Total 3000 ml Balance -2590 ml 140 ml Intake Oral 300 ml 30 ml IV Total 110 ml 110 ml Hemodialysis UF 3000 ml Laboratory Tests 06/11/17 04:00: White Blood Count 5.3, Red Blood Count 2.63L, Hemoglobin 7.9L, Hematocrit 24.9L , Mean Corpuscular Volume 95, Mean Corpuscular Hemoglobin 29.9, Mean Corpuscular Hemoglobin Concent 31.6L, Red Cell Distribution Width 16.6H, Platelet Count 98L, Mean Platelet Volume 7.6, Neutrophils (%) (Auto) , Lymphocytes (%) (Auto) , Monocytes (%) (Auto) , Eosinophils (%) (Auto) , Basophils (%) (Auto) , Differential Total Cells Counted 100, Neutrophils % ( Manual) 64, Lymphocytes % (Manual) 16L, Monocytes % (Manual) 17H, Eosinophils % (Manual) 2, Basophils % (Manual) 1, Band Neutrophils 0, Platelet Estimate DecreasedL, Platelet Morphology Normal, Hypochromasia 3+, Anisocytosis 1+, Sodium Level 143, Potassium Level 4.0, Chloride Level 100, Carbon Dioxide Level 35H, Anion Gap 8, Blood Urea Nitrogen 38H, Creatinine 9.4H, Estimat Glomerular Filtration Rate 7.0, Glucose Level 78, Calcium Level 8.9, Phosphorus Level 6.2H , Magnesium Level 1.9, Total Bilirubin 1.2H, Direct Bilirubin 0.5H, Aspartate Amino Transf (AST/SGOT) 159H, Alanine Aminotransferase (ALT/SGPT) 185H, Alkaline Phosphatase 117H, Total Protein 6.4, Albumin 2.2L, Globulin 4.2, Albumin/Globulin Ratio 0.5L Height (Feet): 5 Height (Inches): 7.00 Weight (Pounds): 224 Objective WDWN AA Man NCAT supple CTA RRR Soft mildly distended No edema PERCY JOYNER Jun 11, 2017 20:14
[2017-06-11] MEDS: Dyna-Hex 2% Top Sol 2oz TOPIC SCH (20:36)
--- NOTE | 2017-06-11 23:42 | General Progress Note ---
Assessment/Plan Assessment/Plan #. Anemia secondary to chronic disease. --> Hemoglobin levels above goal since recent transfusion. --> Continue to closely monitor and trend cbc daily. --> Anemia workup completed and reviewed. Iron 42, TIBC 180, Ferritin 593, B12 876. --> Ferritin is >500, hgb goal is >7 --> Anemia w/u has been reviewed --> ++Occult blood. Consider GI Services and Recs. #. Anemia of kidney disease --> HD as needed per nephrology team --> Monitor closely. #. Generalized body ache related to fluid overload. #. End-stage renal disease, on hemodialysis. #. Tachycardia, to be seen by Cardiology Service, isolated T-wave and ST- segment depression in V6. --> HR has been ~80-90bpm --> S/P Chest CT -- Evidence of worsening CHF/interstitial edema. --> Monitor for improvement. #. Elevated BNP, potentially related to underlying CKD. Subjective Date patient seen: Jun 11, 2017 Constitutional: Denies: no symptoms, chills, diaphoresis, fever, malaise, weakness, other HEENT: Denies: no symptoms, eye pain, blurred vision, tearing, double vision, ear pain, ear discharge, nose pain, nose congestion, throat pain, throat swelling, mouth pain, mouth swelling, other Cardiovascular: Denies: no symptoms, chest pain, edema, irregular heart rate, lightheadedness, palpitations, syncope, other Respiratory: Denies: no symptoms, cough, orthopnea, shortness of breath, SOB with excertion, SOB at rest, sputum, stridor, wheezing, other Gastrointestinal/Abdominal: Denies: no symptoms, abdomen distended, abdominal pain, black stools, tarry stools, blood in stool, constipated, diarrhea, difficulty swallowing, nausea, poor appetite, poor fluid intake, rectal bleeding , vomiting, other Genitourinary: Denies: no symptoms, burning, discharge, frequency, flank pain, hematuria, incontinence, pain, urgency, other Neurologic/Psychiatric: Denies: no symptoms, anxiety, depressed, emotional problems, headache, numbness, paresthesia, pre-existing deficit, seizure, tingling, tremors, weakness, other Hematologic/Lymphatic: Reports: anemia Allergies: Coded Allergies: No Known Allergies (Unverified , 10/24/15) Subjective Hematochezia detected. S/P Chest CT. No fever. Objective Last 24 Hour Vital Signs Date Time Temp Pulse Resp B/P (MAP) Pulse Ox O2 Delivery O2 Flow Rate FiO2 06/11/17 21:34 65 20 96 Full Face 50 06/11/17 20:36 61 100/59 06/11/17 20:30 61 06/11/17 20:00 98.1 61 21 100/73 100 Bi-pap 60 98.1 06/11/17 19:42 61 26 94 Full Face 50 06/11/17 19:03 98 Venturi Mask 14.0 55 06/11/17 19:03 Venturi Mask 14.0 55 06/11/17 18:00 100/59 06/11/17 16:00 97.7 62 10 100/59 96 Venturi Mask 55 97.7 06/11/17 15:15 64 06/11/17 13:34 97.8 72 18 122/74 91 Venturi Mask 97.8 06/11/17 12:22 133/69 06/11/17 12:00 97.5 68 22 133/69 95 Venturi Mask 55 97.5 06/11/17 11:42 69 06/11/17 08:05 82 142/75 06/11/17 08:05 142/75 06/11/17 08:04 82 142/75 06/11/17 07:53 98.9 82 18 142/75 95 Venturi Mask 55 98.9 06/11/17 07:46 Venturi Mask 14.0 55 06/11/17 07:45 94 Venturi Mask 14.0 55 06/11/17 07:45 83 06/11/17 04:00 98.2 90 28 149/90 Venturi Mask 12.0 98.2 06/11/17 04:00 90 06/11/17 00:48 97.9 06/11/17 00:18 97.9 06/11/17 00:00 99.1 87 28 131/84 Venturi Mask 12.0 99.1 06/11/17 00:00 87 Intake and Output 06/10/17 06/11/17 19:00 07:00 Intake Total 410 ml 140 ml Output Total 3000 ml Balance -2590 ml 140 ml Intake Oral 300 ml 30 ml IV Total 110 ml 110 ml Hemodialysis UF 3000 ml Laboratory Tests 06/11/17 04:00: White Blood Count 5.3, Red Blood Count 2.63L, Hemoglobin 7.9L, Hematocrit 24.9L , Mean Corpuscular Volume 95, Mean Corpuscular Hemoglobin 29.9, Mean Corpuscular Hemoglobin Concent 31.6L, Red Cell Distribution Width 16.6H, Platelet Count 98L, Mean Platelet Volume 7.6, Neutrophils (%) (Auto) , Lymphocytes (%) (Auto) , Monocytes (%) (Auto) , Eosinophils (%) (Auto) , Basophils (%) (Auto) , Differential Total Cells Counted 100, Neutrophils % ( Manual) 64, Lymphocytes % (Manual) 16L, Monocytes % (Manual) 17H, Eosinophils % (Manual) 2, Basophils % (Manual) 1, Band Neutrophils 0, Platelet Estimate DecreasedL, Platelet Morphology Normal, Hypochromasia 3+, Anisocytosis 1+, Sodium Level 143, Potassium Level 4.0, Chloride Level 100, Carbon Dioxide Level 35H, Anion Gap 8, Blood Urea Nitrogen 38H, Creatinine 9.4H, Estimat Glomerular Filtration Rate 7.0, Glucose Level 78, Calcium Level 8.9, Phosphorus Level 6.2H , Magnesium Level 1.9, Total Bilirubin 1.2H, Direct Bilirubin 0.5H, Aspartate Amino Transf (AST/SGOT) 159H, Alanine Aminotransferase (ALT/SGPT) 185H, Alkaline Phosphatase 117H, Total Protein 6.4, Albumin 2.2L, Globulin 4.2, Albumin/Globulin Ratio 0.5L Height (Feet): 5 Height (Inches): 7.00 Weight (Pounds): 224 Irving Parker Jun 11, 2017 23:42
[2017-06-12] VITALS (7 sets, daily range): BP systolic 112–163; BP diastolic 72–100
[2017-06-12] MEDS: Piperacillin/Tazobactam 2.25 GM in NS 55 ML IVPB SCH ×3 (00:25→16:00)
[2017-06-12 06:17] LABS: BASOPHILS % (AUTO) 0.8 % (0.0-2.0); EOSINOPHILS % (AUTO) 2.2 % (0.0-3.0); HEMATOCRIT 28.9 % (42.0-52.0); HEMOGLOBIN 9.2 G/DL (14.2-18.0); LYMPHOCYTES % (AUTO) 12.2 % (20.0-45.0); MEAN CORPUSCULAR VOLUME 95 FL (80-99); MONOCYTES % (AUTO) 13.8 % (1.0-10.0); PLATELET COUNT 108 K/UL (150-450); RED BLOOD COUNT 3.06 M/UL (4.70-6.10); RED CELL DISTRIBUTION WIDTH 16.3 % (11.6-14.8); WHITE BLOOD COUNT 5.4 K/UL (4.8-10.8)
[2017-06-12 06:52] LABS: CREATINE KINASE 28 U/L (26-308)
[2017-06-12 07:03] LABS: ALANINE AMINOTRANSFERASE 333 U/L (12-78); ALBUMIN 2.3 G/DL (3.4-5.0); ALBUMIN/GLOBULIN RATIO 0.5 (1.0-2.7); ALKALINE PHOSPHATASE 120 U/L (46-116); ANION GAP 7 mmol/L (5-15); ASPARTATE AMINO TRANSFERASE 253 U/L (15-37); BLOOD UREA NITROGEN 48 mg/dL (7-18); CALCIUM 8.9 MG/DL (8.5-10.1); CARBON DIOXIDE 36 MMOL/L (21-32); CHLORIDE 98 MMOL/L (98-107); CREATININE 10.6 MG/DL (0.55-1.30); PHOSPHORUS 7.3 MG/DL (2.5-4.9); POTASSIUM 4.4 MMOL/L (3.5-5.1); SODIUM 141 MMOL/L (136-145)
[2017-06-12] MEDS: Carvedilol 25mg Tab ORAL SCH ×2 (10:43→21:00)
[2017-06-12] MEDS: Docusate 100mg cap ORAL SCH ×3 (10:43→23:39)
[2017-06-12] MEDS: Lisinopril 20mg tab ORAL SCH ×3 (10:43→18:00)
[2017-06-12] MEDS: Aspirin Baby 81mg ORAL SCH (10:45)
--- NOTE | 2017-06-12 11:27 | Pulmonology Progress Note ---
Assessment/Plan Problems: (1) Respiratory failure (2) Pneumonia (3) Hemoptysis (4) Anemia (5) ESRD (end stage renal disease) on dialysis (6) HTN (hypertension) Assessment/Plan on venturi mask still couging up blood 9 will stop Aspirin) trransfuse prbc prn HD by is consultant check sputum Sputum shows only charli continue abx, new episode of Fever repeat cultures hold heparin for low PLT f/u wbc and cultures Subjective ROS Limited/Unobtainable: No Constitutional: Reports: no symptoms HEENT: Repors: no symptoms Respiratory: Reports: no symptoms Allergies: Coded Allergies: No Known Allergies (Unverified , 10/24/15) Objective Last 24 Hour Vital Signs Date Time Temp Pulse Resp B/P (MAP) Pulse Ox O2 Delivery O2 Flow Rate FiO2 06/12/17 10:43 102 146/81 06/12/17 10:43 146/81 06/12/17 08:02 Venturi Mask 14.0 55 06/12/17 08:01 95 Venturi Mask 14.0 55 06/12/17 08:00 101.2 105 17 158/89 96 Venturi Mask 55.0 101.2 06/12/17 08:00 105 06/12/17 04:00 98.8 100 28 163/100 96 Bi-pap 60 98.8 06/12/17 03:54 97 06/12/17 00:00 97.7 80 32 147/92 99 Bi-pap 60 97.7 06/11/17 21:34 65 20 96 Full Face 50 06/11/17 20:36 61 100/59 06/11/17 20:30 61 06/11/17 20:00 98.1 61 21 100/73 100 Bi-pap 60 98.1 06/11/17 19:42 61 26 94 Full Face 50 06/11/17 19:03 98 Venturi Mask 14.0 55 06/11/17 19:03 Venturi Mask 14.0 55 06/11/17 18:00 100/59 06/11/17 16:00 97.7 62 10 100/59 96 Venturi Mask 55 97.7 06/11/17 15:15 64 06/11/17 13:34 97.8 72 18 122/74 91 Venturi Mask 97.8 06/11/17 12:22 133/69 06/11/17 12:00 97.5 68 22 133/69 95 Venturi Mask 55 97.5 06/11/17 11:42 69 Intake and Output 06/11/17 06/12/17 19:00 07:00 Intake Total 1080 ml 50 ml Balance 1080 ml 50 ml Intake Oral 720 ml 50 ml IV Total 110 ml Blood Product 250 ml # Voids 1 General Appearance: no acute distress HEENT: normocephalic, atraumatic Respiratory/Chest: chest wall non-tender, lungs clear Cardiovascular: normal peripheral pulses, normal rate Abdomen: soft, non tender, no organomegaly Genitourinary: normal external genitalia Extremities: no clubbing Skin: no lesions, no ulcers Laboratory Tests 06/12/17 04:30: White Blood Count 5.4, Red Blood Count 3.06L, Hemoglobin 9.2L, Hematocrit 28.9L , Mean Corpuscular Volume 95, Mean Corpuscular Hemoglobin 30.1, Mean Corpuscular Hemoglobin Concent 31.8L, Red Cell Distribution Width 16.3H, Platelet Count 108L, Mean Platelet Volume 7.8, Neutrophils (%) (Auto) 71.0, Lymphocytes (%) (Auto) 12.2L, Monocytes (%) (Auto) 13.8H, Eosinophils (%) (Auto ) 2.2, Basophils (%) (Auto) 0.8, Sodium Level 141, Potassium Level 4.4, Chloride Level 98, Carbon Dioxide Level 36H, Anion Gap 7, Blood Urea Nitrogen 48H, Creatinine 10.6H, Estimat Glomerular Filtration Rate 6.1, Glucose Level 74 , Calcium Level 8.9, Phosphorus Level 7.3H, Magnesium Level 2.1, Total Bilirubin 1.0, Aspartate Amino Transf (AST/SGOT) 253H, Alanine Aminotransferase (ALT/SGPT) 333H, Alkaline Phosphatase 120H, Total Creatine Kinase 28, Total Protein 7.0, Albumin 2.3L, Globulin 4.7, Albumin/Globulin Ratio 0.5L, Hepatitis A IgM Antibody [Pending], Hepatitis B Surface Antigen [Pending], Hepatitis B Core IgM Antibody [Pending], Hepatitis C Antibody [Pending] Current Medications Medications (Trade) Dose Ordered Sig/Jose Route PRN Reason Start Time Stop Time Status Last Admin Dose Admin Acetaminophen (Tylenol) 650 mg Q4H PRN RECTAL Mild Pain (Pain Scale 1-3) 3/5/18 16:30 07/09/17 16:29 06/09/17 16:37 Albuterol/ Ipratropium (Albuterol/ Ipratropium) 3 ml Q4H PRN HHN Shortness of Breath 06/07/17 09:30 06/12/17 23:59 06/10/17 11:39 Aspirin (ASA) 81 mg DAILY ORAL 06/04/17 09:30 07/04/17 09:29 06/12/17 10:45 Carisoprodol (Soma) 350 mg BID ORAL 06/04/17 18:00 07/04/17 17:59 06/12/17 10:45 Carisoprodol (Soma) 350 mg Q6H PRN ORAL MUSCLE SPASMS 06/03/17 13:30 07/03/17 13:29 06/11/17 13:34 Carvedilol (Coreg) 25 mg EVERY 12 HOURS ORAL 06/04/17 11:30 07/04/17 11:29 06/12/17 10:43 Chlorhexidine Gluconate (Mireille-Hex 2%) 1 applic DAILY@1999 TOPIC 06/05/17 20:00 07/05/17 19:59 06/11/17 20:36 Clonidine HCl (Catapres Tab) 0.1 mg Q4H PRN ORAL bp over 160 syst 06/03/17 16:30 07/03/17 16:29 Dextrose (Dextrose 50%) STAT PRN IV Hypoglycemia 06/03/17 13:30 07/03/17 13:29 06/09/17 16:05 Docusate Sodium (Colace) 100 mg THREE TIMES A DAY ORAL 06/03/17 18:00 07/03/17 17:59 06/12/17 10:43 Lisinopril (Prinivil) 20 mg BID ORAL 06/04/17 09:00 07/04/17 08:59 06/12/17 10:43 Morphine Sulfate (Morphine Sulfate) 2 mg Q4H PRN IVP BREAKTHROUGH CHEST PAIN 06/10/17 07:00 06/17/17 06:59 06/11/17 22:27 Nitroglycerin (Ntg) 0.4 mg Q5M PRN SL Prn Chest Pain 06/04/17 09:15 07/04/17 09:14 06/05/17 00:34 Nitroglycerin (Ntg) 1 patch Q24H TDERMAL 06/04/17 11:30 07/04/17 11:29 06/11/17 12:22 Ondansetron HCl (Zofran) 4 mg Q6H PRN IVP Nausea & Vomiting 06/03/17 13:30 07/03/17 13:29 Pantoprazole (Protonix) 40 mg DAILY ORAL 06/03/17 17:00 07/03/17 16:59 06/12/17 10:43 Piperacillin Sod/ Tazobactam Sod 2.25 gm/Sodium Chloride 55 ml @ 110 mls/hr Q8H IVPB 06/07/17 16:00 06/14/17 15:59 06/12/17 10:41 Polyethylene Glycol (Miralax) 17 gm DAILYPRN PRN ORAL Constipation 06/03/17 13:30 07/03/17 13:29 Promethazine HCl/ Codeine (Phenergan with Codeine) 5 ml Q4H PRN ORAL For Cough 06/05/17 08:30 07/05/17 08:29 Sevelamer Carbonate (Renvela) 2,400 mg THREE TIMES A DAY ORAL 06/09/17 13:00 07/09/17 12:59 06/12/17 10:42 Vancomycin HCl (Vanco rx to dose) 1 ea DAILY PRN MISC Per rx protocol 06/04/17 12:45 07/04/17 12:44 MAICO SYED 8, 2018 11:27
[2017-06-12] MEDS: Nitroglycerin Patch 0.4mg TDERMAL SCH (11:30)
--- NOTE | 2017-06-12 12:02 | Nephrology Progress Note ---
Assessment/Plan Problem List: (1) ESRD (end stage renal disease) on dialysis (2) Shortness of breath (3) Anemia Assessment ESRD , missed HD , admitted with high K and pulmonary edema Acute respiratory distress due to volume overload elevated troponin r/o ACS h/o COPD ? exacerbation HTN urgency Cardiomyopathy L AICD anemia of chronic kidney disease Hx of CVA Plan Plan: HD next 06/12 Transfused Phos binders BP meds adjustment Optimize cardiac status per orders Subjective ROS Limited/Unobtainable: No Constitutional: Reports: malaise Objective Objective Last 24 Hour Vital Signs Date Time Temp Pulse Resp B/P (MAP) Pulse Ox O2 Delivery O2 Flow Rate FiO2 06/12/17 10:43 102 146/81 06/12/17 10:43 146/81 06/12/17 08:02 Venturi Mask 14.0 55 06/12/17 08:01 95 Venturi Mask 14.0 55 06/12/17 08:00 101.2 105 17 158/89 96 Venturi Mask 55.0 101.2 06/12/17 08:00 105 06/12/17 04:00 98.8 100 28 163/100 96 Bi-pap 60 98.8 06/12/17 03:54 97 06/12/17 00:00 97.7 80 32 147/92 99 Bi-pap 60 97.7 06/11/17 21:34 65 20 96 Full Face 50 06/11/17 20:36 61 100/59 06/11/17 20:30 61 06/11/17 20:00 98.1 61 21 100/73 100 Bi-pap 60 98.1 06/11/17 19:42 61 26 94 Full Face 50 06/11/17 19:03 98 Venturi Mask 14.0 55 06/11/17 19:03 Venturi Mask 14.0 55 06/11/17 18:00 100/59 06/11/17 16:00 97.7 62 10 100/59 96 Venturi Mask 55 97.7 06/11/17 15:15 64 06/11/17 13:34 97.8 72 18 122/74 91 Venturi Mask 97.8 06/11/17 12:22 133/69 Intake and Output 06/11/17 06/12/17 19:00 07:00 Intake Total 1080 ml 50 ml Balance 1080 ml 50 ml Intake Oral 720 ml 50 ml IV Total 110 ml Blood Product 250 ml # Voids 1 Laboratory Tests 06/12/17 04:30: White Blood Count 5.4, Red Blood Count 3.06L, Hemoglobin 9.2L, Hematocrit 28.9L , Mean Corpuscular Volume 95, Mean Corpuscular Hemoglobin 30.1, Mean Corpuscular Hemoglobin Concent 31.8L, Red Cell Distribution Width 16.3H, Platelet Count 108L, Mean Platelet Volume 7.8, Neutrophils (%) (Auto) 71.0, Lymphocytes (%) (Auto) 12.2L, Monocytes (%) (Auto) 13.8H, Eosinophils (%) (Auto ) 2.2, Basophils (%) (Auto) 0.8, Sodium Level 141, Potassium Level 4.4, Chloride Level 98, Carbon Dioxide Level 36H, Anion Gap 7, Blood Urea Nitrogen 48H, Creatinine 10.6H, Estimat Glomerular Filtration Rate 6.1, Glucose Level 74 , Calcium Level 8.9, Phosphorus Level 7.3H, Magnesium Level 2.1, Total Bilirubin 1.0, Aspartate Amino Transf (AST/SGOT) 253H, Alanine Aminotransferase (ALT/SGPT) 333H, Alkaline Phosphatase 120H, Total Creatine Kinase 28, Total Protein 7.0, Albumin 2.3L, Globulin 4.7, Albumin/Globulin Ratio 0.5L, Hepatitis A IgM Antibody [Pending], Hepatitis B Surface Antigen [Pending], Hepatitis B Core IgM Antibody [Pending], Hepatitis C Antibody [Pending] Height (Feet): 5 Height (Inches): 7.00 Weight (Pounds): 233 General Appearance: no apparent distress Objective no change LIAM MONTELONGO Jun 12, 2017 12:01
[2017-06-12] MEDS: Morphine Sulfate 2mg/ml Inj IVP PRN ×2 (12:21→21:12)
--- NOTE | 2017-06-12 13:06 | General Progress Note ---
Assessment/Plan Assessment/Plan Assessment - Anemia - OB (+) Stool - R/O TB - ESRD/HD - DM - HTN - COPD - gallstones - rising LFT concerning - need CT with contrast emergently given worsening LFT Recommendations - push po - monitor LFT - minimize meds - hold psych meds for now - CT abd / Pelvis with IV contrast (OK'd by renal) - transfuse PRN - Acid blockade - Defer EGD/Colon a this time Subjective Allergies: Coded Allergies: No Known Allergies (Unverified , 10/24/15) Subjective Above noted patient moaning ? abd pain - not clear LFT higher for CT today Objective Last 24 Hour Vital Signs Date Time Temp Pulse Resp B/P (MAP) Pulse Ox O2 Delivery O2 Flow Rate FiO2 06/12/17 12:00 100 06/12/17 12:00 98.6 92 22 127/80 96 Venturi Mask 55.0 98.6 06/12/17 11:30 127/80 06/12/17 10:43 102 146/81 06/12/17 10:43 146/81 06/12/17 08:02 Venturi Mask 14.0 55 06/12/17 08:01 95 Venturi Mask 14.0 55 06/12/17 08:00 101.2 105 17 158/89 96 Venturi Mask 55.0 101.2 06/12/17 08:00 105 06/12/17 04:00 98.8 100 28 163/100 96 Bi-pap 60 98.8 06/12/17 03:54 97 06/12/17 00:00 97.7 80 32 147/92 99 Bi-pap 60 97.7 06/11/17 21:34 65 20 96 Full Face 50 06/11/17 20:36 61 100/59 06/11/17 20:30 61 06/11/17 20:00 98.1 61 21 100/73 100 Bi-pap 60 98.1 06/11/17 19:42 61 26 94 Full Face 50 06/11/17 19:03 98 Venturi Mask 14.0 55 06/11/17 19:03 Venturi Mask 14.0 55 06/11/17 18:00 100/59 06/11/17 16:00 97.7 62 10 100/59 96 Venturi Mask 55 97.7 06/11/17 15:15 64 06/11/17 13:34 97.8 72 18 122/74 91 Venturi Mask 97.8 Intake and Output 06/11/17 06/12/17 19:00 07:00 Intake Total 1080 ml 50 ml Balance 1080 ml 50 ml Intake Oral 720 ml 50 ml IV Total 110 ml Blood Product 250 ml # Voids 1 Laboratory Tests 06/12/17 04:30: White Blood Count 5.4, Red Blood Count 3.06L, Hemoglobin 9.2L, Hematocrit 28.9L , Mean Corpuscular Volume 95, Mean Corpuscular Hemoglobin 30.1, Mean Corpuscular Hemoglobin Concent 31.8L, Red Cell Distribution Width 16.3H, Platelet Count 108L, Mean Platelet Volume 7.8, Neutrophils (%) (Auto) 71.0, Lymphocytes (%) (Auto) 12.2L, Monocytes (%) (Auto) 13.8H, Eosinophils (%) (Auto ) 2.2, Basophils (%) (Auto) 0.8, Sodium Level 141, Potassium Level 4.4, Chloride Level 98, Carbon Dioxide Level 36H, Anion Gap 7, Blood Urea Nitrogen 48H, Creatinine 10.6H, Estimat Glomerular Filtration Rate 6.1, Glucose Level 74 , Calcium Level 8.9, Phosphorus Level 7.3H, Magnesium Level 2.1, Total Bilirubin 1.0, Aspartate Amino Transf (AST/SGOT) 253H, Alanine Aminotransferase (ALT/SGPT) 333H, Alkaline Phosphatase 120H, Total Creatine Kinase 28, Total Protein 7.0, Albumin 2.3L, Globulin 4.7, Albumin/Globulin Ratio 0.5L, Hepatitis A IgM Antibody [Pending], Hepatitis B Surface Antigen [Pending], Hepatitis B Core IgM Antibody [Pending], Hepatitis C Antibody [Pending] Height (Feet): 5 Height (Inches): 7.00 Weight (Pounds): 233 Objective WDWN AA Man NCAT supple CTA RRR Soft mildly distended No edema PERCY JOYNER Jun 12, 2017 13:06
--- NOTE | 2017-06-12 19:25 | Internal Med Progress Note ---
Subjective Date of Service: Jun 12, 2017 Physician Name Zoey Pires Attending Physician Chiatanya Weinstein MD Current Medications Medications (Trade) Dose Ordered Sig/Jose Route PRN Reason Start Time Stop Time Status Last Admin Dose Admin Acetaminophen (Tylenol) 650 mg Q4H PRN RECTAL Mild Pain (Pain Scale 1-3) 06/09/17 16:30 07/09/17 16:29 06/09/17 16:37 Albuterol/ Ipratropium (Albuterol/ Ipratropium) 3 ml Q4H PRN HHN Shortness of Breath 06/07/17 09:30 06/12/17 23:59 06/10/17 11:39 Carisoprodol (Soma) 350 mg BID ORAL 06/04/17 18:00 07/04/17 17:59 06/12/17 10:45 Carisoprodol (Soma) 350 mg Q6H PRN ORAL MUSCLE SPASMS 06/03/17 13:30 07/03/17 13:29 06/11/17 13:34 Carvedilol (Coreg) 25 mg EVERY 12 HOURS ORAL 06/04/17 11:30 07/04/17 11:29 06/12/17 10:43 Chlorhexidine Gluconate (Mireille-Hex 2%) 1 applic DAILY@2000 TOPIC 06/05/17 20:00 07/05/17 19:59 06/11/17 20:36 Clonidine HCl (Catapres Tab) 0.1 mg Q4H PRN ORAL bp over 160 syst 06/03/17 16:30 07/03/17 16:29 Dextrose (Dextrose 50%) STAT PRN IV Hypoglycemia 06/03/17 13:30 07/03/17 13:29 06/09/17 16:05 Docusate Sodium (Colace) 100 mg THREE TIMES A DAY ORAL 06/03/17 18:00 07/03/17 17:59 06/12/17 14:50 Lisinopril (Prinivil) 20 mg BID ORAL 06/04/17 09:00 07/04/17 08:59 06/12/17 10:43 Morphine Sulfate (Morphine Sulfate) 2 mg Q4H PRN IVP BREAKTHROUGH CHEST PAIN 06/10/17 07:00 06/17/17 06:59 06/12/17 12:21 Nitroglycerin (Ntg) 0.4 mg Q5M PRN SL Prn Chest Pain 06/04/17 09:15 07/04/17 09:14 06/05/17 00:34 Nitroglycerin (Ntg) 1 patch Q24H TDERMAL 06/04/17 11:30 07/04/17 11:29 06/11/17 12:22 Ondansetron HCl (Zofran) 4 mg Q6H PRN IVP Nausea & Vomiting 06/03/17 13:30 07/03/17 13:29 Pantoprazole (Protonix) 40 mg DAILY ORAL 06/03/17 17:00 07/03/17 16:59 06/12/17 10:43 Piperacillin Sod/ Tazobactam Sod 2.25 gm/Sodium Chloride 55 ml @ 110 mls/hr Q8H IVPB 06/07/17 16:00 06/14/17 15:59 06/12/17 16:00 Polyethylene Glycol (Miralax) 17 gm DAILYPRN PRN ORAL Constipation 06/03/17 13:30 07/03/17 13:29 Promethazine HCl/ Codeine (Phenergan with Codeine) 5 ml Q4H PRN ORAL For Cough 06/05/17 08:30 07/05/17 08:29 Sevelamer Carbonate (Renvela) 2,400 mg THREE TIMES A DAY ORAL 06/09/17 13:00 07/09/17 12:59 06/12/17 14:49 Vancomycin HCl (Vanco rx to dose) 1 ea DAILY PRN MISC Per rx protocol 06/04/17 12:45 07/04/17 12:44 Allergies: Coded Allergies: No Known Allergies (Unverified , 10/24/15) ROS Limited/Unobtainable: Yes Subjective 57 YO M admitted with chest pain and shortness of breath. Now pneumonia and candelaria heart failure. Back on BIPAP. Cover for Int Med-Dr Weinstein. HIMANSHU Objective Last Vital Signs Date Time Temp Pulse Resp B/P (MAP) Pulse Ox O2 Delivery O2 Flow Rate FiO2 06/12/17 17:07 71 26 95 Full Face 80 06/12/17 16:00 98.0 112/72 98.0 06/12/17 12:00 55.0 Laboratory Tests Test 06/12/17 04:30 White Blood Count 5.4 K/UL (4.8-10.8) Red Blood Count 3.06 M/UL (4.70-6.10) L Hemoglobin 9.2 G/DL (14.2-18.0) L Hematocrit 28.9 % (42.0-52.0) L Mean Corpuscular Volume 95 FL (80-99) Mean Corpuscular Hemoglobin 30.1 PG (27.0-31.0) Mean Corpuscular Hemoglobin Concent 31.8 G/DL (32.0-36.0) L Red Cell Distribution Width 16.3 % (11.6-14.8) H Platelet Count 108 K/UL (150-450) L Mean Platelet Volume 7.8 FL (6.5-10.1) Neutrophils (%) (Auto) 71.0 % (45.0-75.0) Lymphocytes (%) (Auto) 12.2 % (20.0-45.0) L Monocytes (%) (Auto) 13.8 % (1.0-10.0) H Eosinophils (%) (Auto) 2.2 % (0.0-3.0) Basophils (%) (Auto) 0.8 % (0.0-2.0) Sodium Level 141 MMOL/L (136-145) Potassium Level 4.4 MMOL/L (3.5-5.1) Chloride Level 98 MMOL/L (98-107) Carbon Dioxide Level 36 MMOL/L (21-32) H Anion Gap 7 mmol/L (5-15) Blood Urea Nitrogen 48 mg/dL (7-18) H Creatinine 10.6 MG/DL (0.55-1.30) H Estimat Glomerular Filtration Rate 6.1 mL/min (>60) Glucose Level 74 MG/DL (74-106) Calcium Level 8.9 MG/DL (8.5-10.1) Phosphorus Level 7.3 MG/DL (2.5-4.9) H Magnesium Level 2.1 MG/DL (1.8-2.4) Total Bilirubin 1.0 MG/DL (0.2-1.0) Aspartate Amino Transf (AST/SGOT) 253 U/L (15-37) H Alanine Aminotransferase (ALT/SGPT) 333 U/L (12-78) H Alkaline Phosphatase 120 U/L (46-116) H Total Creatine Kinase 28 U/L (26-308) Total Protein 7.0 G/DL (6.4-8.2) Albumin 2.3 G/DL (3.4-5.0) L Globulin 4.7 g/dL Albumin/Globulin Ratio 0.5 (1.0-2.7) L Hepatitis A IgM Antibody Pending Hepatitis B Surface Antigen Pending Hepatitis B Core IgM Antibody Pending Hepatitis C Antibody Pending Intake and Output 06/11/17 06/12/17 19:00 07:00 Intake Total 1080 ml 50 ml Balance 1080 ml 50 ml Intake Oral 720 ml 50 ml IV Total 110 ml Blood Product 250 ml # Voids 1 Objective General Appearance: WD/WN, alert, moderate distress EENT: PERRL/EOMI, normal ENT inspection Neck: non-tender, normal alignment, supple, normal inspection Cardiovascular: normal peripheral pulses, normal rate, regular rhythm, no gallop/murmur, no JVD Respiratory/Chest: BIPAP; respiratory distress, crackles/rales, rhonchi - bilaterally, expiratory wheezing Abdomen: normal bowel sounds, non tender, soft, no organomegaly, no mass Extremities: normal range of motion 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 Currently on BIPAP. See pulmonay note. (2) Pleuritic chest pain (3) Hemoptysis Assessment & Plan: Due to pneumonia (4) Pneumonia Assessment & Plan: RUL and cavitary. Concerning for TB. Await AFB cultures- see ID consult. Continue vanco and zosyn per ID (5) Shortness of breath (6) ESRD (end stage renal disease) on dialysis Assessment & Plan: See nephrology note. Hemodialysis 06/06/17 per nephrology (7) Hyperkalemia Assessment & Plan: Due to renal failure. Hemodialysis 06/12/17 per nephrology (8) COPD (chronic obstructive pulmonary disease) (9) HTN (hypertension) Assessment & Plan: Continue coreg and lisinopril. (10) CHF (congestive heart failure) (11) Elevated troponin Assessment & Plan: ?due to renal failure? See cardiology note. Status: deteriorating PIRESZOEY Jun 12, 2017 19:25
--- NOTE | 2017-06-12 20:11 | Infectious Diseases Prog Note ---
Assessment/Plan Assessment/Plan ASSESSMENT: The patient is a 57-year-old male with, Low-grade fever, SP Status post leukocytosis. Influenza A and B screen negative Transaminitis Pneumonia with possible cavitary lesion/hemoptysis. SCx: Neg T-SPOT :Neg AFB x 3 : Neg MTB PCR x2 : neg cryptococcus Ag : neg CT: 7.8 x 5.3 x 6.6 cm dense opacity in the posterior inferior right upper lobe with a central cavitation. Chest x-ray : right mid lung infiltrate, possible cavitation Rule out tuberculosis, fungal infection, or necrotizing pneumonia. CRP 14 Influenza negative HIV : NEG Seizure disorder History of CVA History of pacemaker placement Hyperlipidemia Hypertension COPD/asthma End-stage renal disease, on hemodialysis Diabetes Anxiety Anemia Echo, ejection fraction 45% to 50%. PLAN: Patient on Zosyn, vancomycin day # 9 duration unknown at this time, ( depending on repeat CT result ) SP 3/4 SP Zithromax D# 6 sputum culture (bacterial, fungal, and AFB x3). sputum for AFB X 3 Coccidioidal . Galactomannan and Fungitell. Airborne isolation for now may need BAL , will defer this to Pul team CT of Chest Hep Panel : P US Abd : P TB Control recs to start TB Rx, doubt is needed at his time pt has improved calycinally ,and now has increased of LFT Subjective Allergies: Coded Allergies: No Known Allergies (Unverified , 10/24/15) Subjective no new complain afebrile Objective Vital Signs Last 24 Hour Vital Signs Date Time Temp Pulse Resp B/P (MAP) Pulse Ox O2 Delivery O2 Flow Rate FiO2 06/12/17 19:57 Non-Rebreather 15.0 100 06/12/17 19:57 92 Non-Rebreather 15.0 100 06/12/17 17:55 Bi-pap 80 06/12/17 17:07 71 26 95 Full Face 80 06/12/17 16:00 79 06/12/17 16:00 60 06/12/17 16:00 98.0 76 22 112/72 96 Bi-pap 60 98.0 06/12/17 12:00 100 06/12/17 12:00 98.6 92 22 127/80 96 Venturi Mask 55.0 98.6 06/12/17 11:30 127/80 06/12/17 10:43 102 146/81 06/12/17 10:43 146/81 06/12/17 08:02 Venturi Mask 14.0 55 06/12/17 08:01 95 Venturi Mask 14.0 55 06/12/17 08:00 101.2 105 17 158/89 96 Venturi Mask 55.0 101.2 06/12/17 08:00 105 06/12/17 04:00 98.8 100 28 163/100 96 Bi-pap 60 98.8 06/12/17 03:54 97 06/12/17 00:00 97.7 80 32 147/92 99 Bi-pap 60 97.7 06/11/17 21:34 65 20 96 Full Face 50 06/11/17 20:36 61 100/59 06/11/17 20:30 61 Height (Feet): 5 Height (Inches): 7.00 Weight (Pounds): 233 HEENT: anicteric Respiratory/Chest: normal breath sounds Cardiovascular: normal rate Abdomen: soft, non tender Laboratory Tests Test 06/12/17 04:30 White Blood Count 5.4 K/UL (4.8-10.8) Red Blood Count 3.06 M/UL (4.70-6.10) L Hemoglobin 9.2 G/DL (14.2-18.0) L Hematocrit 28.9 % (42.0-52.0) L Mean Corpuscular Volume 95 FL (80-99) Mean Corpuscular Hemoglobin 30.1 PG (27.0-31.0) Mean Corpuscular Hemoglobin Concent 31.8 G/DL (32.0-36.0) L Red Cell Distribution Width 16.3 % (11.6-14.8) H Platelet Count 108 K/UL (150-450) L Mean Platelet Volume 7.8 FL (6.5-10.1) Neutrophils (%) (Auto) 71.0 % (45.0-75.0) Lymphocytes (%) (Auto) 12.2 % (20.0-45.0) L Monocytes (%) (Auto) 13.8 % (1.0-10.0) H Eosinophils (%) (Auto) 2.2 % (0.0-3.0) Basophils (%) (Auto) 0.8 % (0.0-2.0) Sodium Level 141 MMOL/L (136-145) Potassium Level 4.4 MMOL/L (3.5-5.1) Chloride Level 98 MMOL/L (98-107) Carbon Dioxide Level 36 MMOL/L (21-32) H Anion Gap 7 mmol/L (5-15) Blood Urea Nitrogen 48 mg/dL (7-18) H Creatinine 10.6 MG/DL (0.55-1.30) H Estimat Glomerular Filtration Rate 6.1 mL/min (>60) Glucose Level 74 MG/DL (74-106) Calcium Level 8.9 MG/DL (8.5-10.1) Phosphorus Level 7.3 MG/DL (2.5-4.9) H Magnesium Level 2.1 MG/DL (1.8-2.4) Total Bilirubin 1.0 MG/DL (0.2-1.0) Aspartate Amino Transf (AST/SGOT) 253 U/L (15-37) H Alanine Aminotransferase (ALT/SGPT) 333 U/L (12-78) H Alkaline Phosphatase 120 U/L (46-116) H Total Creatine Kinase 28 U/L (26-308) Total Protein 7.0 G/DL (6.4-8.2) Albumin 2.3 G/DL (3.4-5.0) L Globulin 4.7 g/dL Albumin/Globulin Ratio 0.5 (1.0-2.7) L Hepatitis A IgM Antibody Pending Hepatitis B Surface Antigen Pending Hepatitis B Core IgM Antibody Pending Hepatitis C Antibody Pending Current Medications Medications (Trade) Dose Ordered Sig/Jose Route PRN Reason Start Time Stop Time Status Last Admin Dose Admin Acetaminophen (Tylenol) 650 mg Q4H PRN RECTAL Mild Pain (Pain Scale 1-3) 06/09/17 16:30 07/09/17 16:29 06/09/17 16:37 Albuterol/ Ipratropium (Albuterol/ Ipratropium) 3 ml Q4H PRN HHN Shortness of Breath 06/07/17 09:30 06/12/17 23:59 06/10/17 11:39 Carisoprodol (Soma) 350 mg BID ORAL 06/04/17 18:00 07/04/17 17:59 06/12/17 10:45 Carisoprodol (Soma) 350 mg Q6H PRN ORAL MUSCLE SPASMS 06/03/17 13:30 07/03/17 13:29 06/11/17 13:34 Carvedilol (Coreg) 25 mg EVERY 12 HOURS ORAL 06/04/17 11:30 07/04/17 11:29 06/12/17 10:43 Chlorhexidine Gluconate (Mireille-Hex 2%) 1 applic DAILY@2000 TOPIC 06/05/17 20:00 07/05/17 19:59 06/11/17 20:36 Clonidine HCl (Catapres Tab) 0.1 mg Q4H PRN ORAL bp over 160 syst 06/03/17 16:30 07/03/17 16:29 Dextrose (Dextrose 50%) STAT PRN IV Hypoglycemia 06/03/17 13:30 07/03/17 13:29 06/09/17 16:05 Docusate Sodium (Colace) 100 mg THREE TIMES A DAY ORAL 06/03/17 18:00 07/03/17 17:59 06/12/17 14:50 Lisinopril (Prinivil) 20 mg BID ORAL 06/04/17 09:00 07/04/17 08:59 06/12/17 10:43 Morphine Sulfate (Morphine Sulfate) 2 mg Q4H PRN IVP BREAKTHROUGH CHEST PAIN 06/10/17 07:00 06/17/17 06:59 06/12/17 12:21 Nitroglycerin (Ntg) 0.4 mg Q5M PRN SL Prn Chest Pain 06/04/17 09:15 07/04/17 09:14 06/05/17 00:34 Nitroglycerin (Ntg) 1 patch Q24H TDERMAL 06/04/17 11:30 07/04/17 11:29 06/11/17 12:22 Ondansetron HCl (Zofran) 4 mg Q6H PRN IVP Nausea & Vomiting 06/03/17 13:30 07/03/17 13:29 Pantoprazole (Protonix) 40 mg DAILY ORAL 06/03/17 17:00 07/03/17 16:59 06/12/17 10:43 Piperacillin Sod/ Tazobactam Sod 2.25 gm/Sodium Chloride 55 ml @ 110 mls/hr Q8H IVPB 06/07/17 16:00 06/14/17 15:59 06/12/17 16:00 Polyethylene Glycol (Miralax) 17 gm DAILYPRN PRN ORAL Constipation 06/03/17 13:30 07/03/17 13:29 Promethazine HCl/ Codeine (Phenergan with Codeine) 5 ml Q4H PRN ORAL For Cough 06/05/17 08:30 07/05/17 08:29 Sevelamer Carbonate (Renvela) 2,400 mg THREE TIMES A DAY ORAL 06/09/17 13:00 07/09/17 12:59 06/12/17 14:49 Vancomycin HCl (Vanco rx to dose) 1 ea DAILY PRN MISC Per rx protocol 06/04/17 12:45 07/04/17 12:44 PREET GUAJARDO M.D. Jun 12, 2017 20:11
[2017-06-12] MEDS: Dyna-Hex 2% Top Sol 2oz TOPIC SCH (21:10)
[2017-06-12] MEDS ORDERED: Tubing Blood Filter IV ONE (22:15)
[2017-06-12] MEDS ORDERED: NS 275ml ONE (22:15)
[2017-06-13 00:20] VITALS: BP 118/73
[2017-06-13] MEDS: Piperacillin/Tazobactam 2.25 GM in NS 55 ML IVPB SCH ×3 (00:48→16:42)
[2017-06-13 04:00] VITALS: BP 140/82
[2017-06-13] MEDS: Morphine Sulfate 2mg/ml Inj IVP PRN ×4 (05:17→20:28)
[2017-06-13 05:59] LABS: BASOPHILS % (AUTO) 0.4 % (0.0-2.0); EOSINOPHILS % (AUTO) 1.9 % (0.0-3.0); HEMATOCRIT 25.2 % (42.0-52.0); LYMPHOCYTES % (AUTO) 13.2 % (20.0-45.0); MEAN CORPUSCULAR VOLUME 96 FL (80-99); MONOCYTES % (AUTO) 16.4 % (1.0-10.0); NEUTROPHILS % (AUTO) 68.1 % (45.0-75.0); PLATELET COUNT 105 K/UL (150-450); RED BLOOD COUNT 2.63 M/UL (4.70-6.10); WHITE BLOOD COUNT 5.4 K/UL (4.8-10.8)
[2017-06-13 06:20] LABS: ALANINE AMINOTRANSFERASE 488 U/L (12-78); ALBUMIN 2.2 G/DL (3.4-5.0); ALBUMIN/GLOBULIN RATIO 0.5 (1.0-2.7); ALKALINE PHOSPHATASE 114 U/L (46-116); ANION GAP 8 mmol/L (5-15); ASPARTATE AMINO TRANSFERASE 352 U/L (15-37); BILIRUBIN,TOTAL 0.9 MG/DL (0.2-1.0); BLOOD UREA NITROGEN 41 mg/dL (7-18); CALCIUM 8.8 MG/DL (8.5-10.1); CARBON DIOXIDE 35 MMOL/L (21-32); CHLORIDE 99 MMOL/L (98-107); POTASSIUM 4.2 MMOL/L (3.5-5.1); SODIUM 142 MMOL/L (136-145)
[2017-06-13 08:00] VITALS: BP 151/80
--- NOTE | 2017-06-13 09:04 | General Progress Note ---
Assessment/Plan Assessment/Plan #. Anemia secondary to chronic disease. --> Hemoglobin levels above goal since recent transfusion. --> Continue to closely monitor and trend cbc daily. --> Anemia workup completed and reviewed. Iron 42, TIBC 180, Ferritin 593, B12 876. --> Ferritin is >500, hgb goal is >7 --> Anemia w/u has been reviewed --> ++Occult blood. Consider GI Services and Recs. #. Anemia of kidney disease --> HD as needed per nephrology team --> Monitor closely. #. Generalized body ache related to fluid overload. #. End-stage renal disease, on hemodialysis. #. Tachycardia, to be seen by Cardiology Service, isolated T-wave and ST- segment depression in V6. --> HR has been ~80-90bpm --> S/P Chest CT -- Evidence of worsening CHF/interstitial edema. --> Monitor for improvement. #. Elevated BNP, potentially related to underlying CKD. Subjective Allergies: Coded Allergies: No Known Allergies (Unverified , 10/24/15) Subjective Pt agitated. Objective Last 24 Hour Vital Signs Date Time Temp Pulse Resp B/P (MAP) Pulse Ox O2 Delivery O2 Flow Rate FiO2 06/13/17 08:00 78 24 151/80 92 Non-Rebreather 100 06/13/17 07:40 87 06/13/17 07:39 94 Non-Rebreather 15.0 100 06/13/17 07:39 Non-Rebreather 15.0 100 06/13/17 05:47 98.3 06/13/17 05:17 98.3 06/13/17 04:00 55 06/13/17 04:00 98.3 83 21 140/82 97 Venturi Mask 55 98.3 06/13/17 03:48 74 06/13/17 00:39 98.7 06/13/17 00:20 81 21 118/73 95 Venturi Mask 55 06/13/17 00:11 85 06/13/17 00:00 55 06/12/17 23:50 98.7 82 17 135/78 94 Venturi Mask 55 98.7 06/12/17 23:40 98.6 06/12/17 21:30 Venturi Mask 06/12/17 21:30 Venturi Mask 55 06/12/17 21:00 81 118/73 06/12/17 20:00 98.6 70 20 123/76 99 Venturi Mask 55 98.6 06/12/17 19:57 Non-Rebreather 15.0 100 06/12/17 19:57 92 Non-Rebreather 15.0 100 06/12/17 19:17 73 06/12/17 18:00 123/76 06/12/17 17:55 Bi-pap 80 06/12/17 17:07 71 26 95 Full Face 80 06/12/17 16:00 79 06/12/17 16:00 60 06/12/17 16:00 98.0 76 22 112/72 96 Bi-pap 60 98.0 06/12/17 12:00 100 06/12/17 12:00 98.6 92 22 127/80 96 Venturi Mask 55.0 98.6 06/12/17 11:30 127/80 06/12/17 10:43 102 146/81 06/12/17 10:43 146/81 Intake and Output 06/12/17 06/13/17 19:00 07:00 Intake Total 450 ml 310 ml Output Total 3065 ml Balance 450 ml -2755 ml Intake Oral 100 ml 200 ml IV Total 110 ml 110 ml Other 240 ml Hemodialysis UF 3065 ml # Voids 2 # Bowel Movements 4 Laboratory Tests 06/13/17 04:50: White Blood Count 5.4, Red Blood Count 2.63L, Hemoglobin 8.0L, Hematocrit 25.2L , Mean Corpuscular Volume 96, Mean Corpuscular Hemoglobin 30.5, Mean Corpuscular Hemoglobin Concent 31.8L, Red Cell Distribution Width 17.0H, Platelet Count 105L, Mean Platelet Volume 7.0, Neutrophils (%) (Auto) 68.1, Lymphocytes (%) (Auto) 13.2L, Monocytes (%) (Auto) 16.4H, Eosinophils (%) (Auto ) 1.9, Basophils (%) (Auto) 0.4, Sodium Level 142, Potassium Level 4.2, Chloride Level 99, Carbon Dioxide Level 35H, Anion Gap 8, Blood Urea Nitrogen 41H, Creatinine 10.0H, Estimat Glomerular Filtration Rate 6.5, Glucose Level 81 , Calcium Level 8.8, Total Bilirubin 0.9, Aspartate Amino Transf (AST/SGOT) 352H , Alanine Aminotransferase (ALT/SGPT) 488H, Alkaline Phosphatase 114, Pro-B- Type Natriuretic Peptide > 64287K, Total Protein 6.7, Albumin 2.2L, Globulin 4.5 , Albumin/Globulin Ratio 0.5L, Random Vancomycin Level 20.2 Height (Feet): 5 Height (Inches): 7.00 Weight (Pounds): 214 General Appearance: agitated Respiratory/Chest: decreased breath sounds Edema: trace edema Irving Parker Jun 13, 2017 09:04
[2017-06-13] MEDS: Carvedilol 25mg Tab ORAL SCH ×3 (09:15→20:27)
[2017-06-13] MEDS: Lisinopril 20mg tab ORAL SCH ×2 (09:15→18:20)
[2017-06-13] MEDS: Docusate 100mg cap ORAL SCH ×3 (09:15→18:21)
--- NOTE | 2017-06-13 10:53 | Diagnostic Imaging Report ---
Indication: Reason For Exam: [id number] Technique: One view of the chest Comparison: 06/11/2017 Findings: Central right lung opacity with central cavitation is again demonstrated. Diffuse interstitial and airspace disease is seen throughout both lungs, probably not significantly changed blunting of the right costophrenic sulcus persists.. The heart remains enlarged. Left chest AICD and right jugular central venous catheter remain. Findings are unchanged Impression: Unchanged, over 2 days, findings as above.
--- NOTE | 2017-06-13 11:00 | Pulmonology Progress Note ---
Assessment/Plan Problems: (1) Respiratory failure (2) Pneumonia (3) Hemoptysis (4) Anemia (5) ESRD (end stage renal disease) on dialysis (6) HTN (hypertension) Assessment/Plan on venturi mask clinically better trransfuse prbc prn HD by warper tender check sputum Sputum shows only charli continue abx, repeat cultures hold heparin for low PLT f/u wbc and cultures Subjective ROS Limited/Unobtainable: No Interval Events: on 100%NRM Allergies: Coded Allergies: No Known Allergies (Unverified , 10/24/15) Objective Last 24 Hour Vital Signs Date Time Temp Pulse Resp B/P (MAP) Pulse Ox O2 Delivery O2 Flow Rate FiO2 06/13/17 09:15 78 151/80 06/13/17 09:15 151/80 06/13/17 08:00 98.2 78 24 151/80 92 Non-Rebreather 100 98.2 06/13/17 07:40 87 06/13/17 07:39 94 Non-Rebreather 15.0 100 06/13/17 07:39 Non-Rebreather 15.0 100 06/13/17 05:47 98.3 06/13/17 05:17 98.3 06/13/17 04:00 55 06/13/17 04:00 98.3 83 21 140/82 97 Venturi Mask 55 98.3 06/13/17 03:48 74 06/13/17 00:39 98.7 06/13/17 00:20 81 21 118/73 95 Venturi Mask 55 06/13/17 00:11 85 06/13/17 00:00 55 06/12/17 23:50 98.7 82 17 135/78 94 Venturi Mask 55 98.7 06/12/17 23:40 98.6 06/12/17 21:30 Venturi Mask 06/12/17 21:30 Venturi Mask 55 06/12/17 21:00 81 118/73 06/12/17 20:00 98.6 70 20 123/76 99 Venturi Mask 55 98.6 06/12/17 19:57 Non-Rebreather 15.0 100 06/12/17 19:57 92 Non-Rebreather 15.0 100 06/12/17 19:17 73 06/12/17 18:00 123/76 06/12/17 17:55 Bi-pap 80 06/12/17 17:07 71 26 95 Full Face 80 06/12/17 16:00 79 06/12/17 16:00 60 06/12/17 16:00 98.0 76 22 112/72 96 Bi-pap 60 98.0 06/12/17 12:00 100 06/12/17 12:00 98.6 92 22 127/80 96 Venturi Mask 55.0 98.6 06/12/17 11:30 127/80 Intake and Output 06/12/17 06/13/17 19:00 07:00 Intake Total 450 ml 310 ml Output Total 3065 ml Balance 450 ml -2755 ml Intake Oral 100 ml 200 ml IV Total 110 ml 110 ml Other 240 ml Hemodialysis UF 3065 ml # Voids 2 # Bowel Movements 4 General Appearance: WD/WN HEENT: normocephalic, atraumatic Respiratory/Chest: chest wall non-tender, crackles/rales, rhonchi Cardiovascular: normal rate, regular rhythm Abdomen: normal bowel sounds Skin: no lesions, no ulcers Laboratory Tests 06/13/17 04:50: White Blood Count 5.4, Red Blood Count 2.63L, Hemoglobin 8.0L, Hematocrit 25.2L , Mean Corpuscular Volume 96, Mean Corpuscular Hemoglobin 30.5, Mean Corpuscular Hemoglobin Concent 31.8L, Red Cell Distribution Width 17.0H, Platelet Count 105L, Mean Platelet Volume 7.0, Neutrophils (%) (Auto) 68.1, Lymphocytes (%) (Auto) 13.2L, Monocytes (%) (Auto) 16.4H, Eosinophils (%) (Auto ) 1.9, Basophils (%) (Auto) 0.4, Sodium Level 142, Potassium Level 4.2, Chloride Level 99, Carbon Dioxide Level 35H, Anion Gap 8, Blood Urea Nitrogen 41H, Creatinine 10.0H, Estimat Glomerular Filtration Rate 6.5, Glucose Level 81 , Calcium Level 8.8, Total Bilirubin 0.9, Aspartate Amino Transf (AST/SGOT) 352H , Alanine Aminotransferase (ALT/SGPT) 488H, Alkaline Phosphatase 114, Pro-B- Type Natriuretic Peptide > 23133Z, Total Protein 6.7, Albumin 2.2L, Globulin 4.5 , Albumin/Globulin Ratio 0.5L, Random Vancomycin Level 20.2 Current Medications Medications (Trade) Dose Ordered Sig/Jose Route PRN Reason Start Time Stop Time Status Last Admin Dose Admin Acetaminophen (Tylenol) 650 mg Q4H PRN RECTAL Mild Pain (Pain Scale 1-3) 06/09/17 16:30 07/09/17 16:29 06/09/17 16:37 Carisoprodol (Soma) 350 mg BID ORAL 06/04/17 18:00 07/04/17 17:59 06/13/17 09:14 Carisoprodol (Soma) 350 mg Q6H PRN ORAL MUSCLE SPASMS 06/03/17 13:30 07/03/17 13:29 06/11/17 13:34 Carvedilol (Coreg) 25 mg EVERY 12 HOURS ORAL 06/04/17 11:30 07/04/17 11:29 06/13/17 09:15 Chlorhexidine Gluconate (Mireille-Hex 2%) 1 applic DAILY@2000 TOPIC 06/05/17 20:00 07/05/17 19:59 06/12/17 21:10 Clonidine HCl (Catapres Tab) 0.1 mg Q4H PRN ORAL bp over 160 syst 06/03/17 16:30 07/03/17 16:29 Dextrose (Dextrose 50%) STAT PRN IV Hypoglycemia 06/03/17 13:30 07/03/17 13:29 06/09/17 16:05 Docusate Sodium (Colace) 100 mg THREE TIMES A DAY ORAL 06/03/17 18:00 07/03/17 17:59 06/13/17 09:15 Lisinopril (Prinivil) 20 mg BID ORAL 06/04/17 09:00 07/04/17 08:59 06/13/17 09:15 Morphine Sulfate (Morphine Sulfate) 2 mg Q4H PRN IVP BREAKTHROUGH CHEST PAIN 06/10/17 07:00 06/17/17 06:59 06/13/17 09:58 Nitroglycerin (Ntg) 0.4 mg Q5M PRN SL Prn Chest Pain 06/04/17 09:15 07/04/17 09:14 06/05/17 00:34 Nitroglycerin (Ntg) 1 patch Q24H TDERMAL 06/04/17 11:30 07/04/17 11:29 06/11/17 12:22 Ondansetron HCl (Zofran) 4 mg Q6H PRN IVP Nausea & Vomiting 06/03/17 13:30 07/03/17 13:29 Pantoprazole (Protonix) 40 mg DAILY ORAL 06/03/17 17:00 07/03/17 16:59 06/13/17 09:14 Piperacillin Sod/ Tazobactam Sod 2.25 gm/Sodium Chloride 55 ml @ 110 mls/hr Q8H IVPB 06/07/17 16:00 06/14/17 15:59 06/13/17 09:10 Polyethylene Glycol (Miralax) 17 gm DAILYPRN PRN ORAL Constipation 06/03/17 13:30 07/03/17 13:29 Promethazine HCl/ Codeine (Phenergan with Codeine) 5 ml Q4H PRN ORAL For Cough 06/05/17 08:30 07/05/17 08:29 Sevelamer Carbonate (Renvela) 2,400 mg THREE TIMES A DAY ORAL 06/09/17 13:00 07/09/17 12:59 06/13/17 09:14 Vancomycin HCl (Vanco rx to dose) 1 ea DAILY PRN MISC Per rx protocol 06/04/17 12:45 07/04/17 12:44 MAICO SYED Jun 13, 2017 11:00
--- NOTE | 2017-06-13 11:30 | Nephrology Progress Note ---
Assessment/Plan Problem List: (1) ESRD (end stage renal disease) on dialysis (2) Shortness of breath (3) Anemia Assessment ESRD , missed HD , admitted with high K and pulmonary edema Acute respiratory distress due to volume overload elevated troponin r/o ACS h/o COPD ? exacerbation HTN urgency Cardiomyopathy L AICD anemia of chronic kidney disease Hx of CVA Plan Plan: HD next 06/14 Transfused Phos binders BP meds adjustment Optimize cardiac status per orders Subjective ROS Limited/Unobtainable: No Objective Objective Last 24 Hour Vital Signs Date Time Temp Pulse Resp B/P (MAP) Pulse Ox O2 Delivery O2 Flow Rate FiO2 06/13/17 09:15 78 151/80 06/13/17 09:15 151/80 06/13/17 08:00 98.2 78 24 151/80 92 Non-Rebreather 100 98.2 06/13/17 07:40 87 06/13/17 07:39 94 Non-Rebreather 15.0 100 06/13/17 07:39 Non-Rebreather 15.0 100 06/13/17 05:47 98.3 06/13/17 05:17 98.3 06/13/17 04:00 55 06/13/17 04:00 98.3 83 21 140/82 97 Venturi Mask 55 98.3 06/13/17 03:48 74 06/13/17 00:39 98.7 06/13/17 00:20 81 21 118/73 95 Venturi Mask 55 06/13/17 00:11 85 06/13/17 00:00 55 06/12/17 23:50 98.7 82 17 135/78 94 Venturi Mask 55 98.7 06/12/17 23:40 98.6 06/12/17 21:30 Venturi Mask 06/12/17 21:30 Venturi Mask 55 06/12/17 21:00 81 118/73 06/12/17 20:00 98.6 70 20 123/76 99 Venturi Mask 55 98.6 06/12/17 19:57 Non-Rebreather 15.0 100 06/12/17 19:57 92 Non-Rebreather 15.0 100 06/12/17 19:17 73 06/12/17 18:00 123/76 06/12/17 17:55 Bi-pap 80 06/12/17 17:07 71 26 95 Full Face 80 06/12/17 16:00 79 06/12/17 16:00 60 06/12/17 16:00 98.0 76 22 112/72 96 Bi-pap 60 98.0 06/12/17 12:00 100 06/12/17 12:00 98.6 92 22 127/80 96 Venturi Mask 55.0 98.6 06/12/17 11:30 127/80 Intake and Output 06/12/17 06/13/17 19:00 07:00 Intake Total 450 ml 310 ml Output Total 3065 ml Balance 450 ml -2755 ml Intake Oral 100 ml 200 ml IV Total 110 ml 110 ml Other 240 ml Hemodialysis UF 3065 ml # Voids 2 # Bowel Movements 4 Laboratory Tests 06/13/17 04:50: White Blood Count 5.4, Red Blood Count 2.63L, Hemoglobin 8.0L, Hematocrit 25.2L , Mean Corpuscular Volume 96, Mean Corpuscular Hemoglobin 30.5, Mean Corpuscular Hemoglobin Concent 31.8L, Red Cell Distribution Width 17.0H, Platelet Count 105L, Mean Platelet Volume 7.0, Neutrophils (%) (Auto) 68.1, Lymphocytes (%) (Auto) 13.2L, Monocytes (%) (Auto) 16.4H, Eosinophils (%) (Auto ) 1.9, Basophils (%) (Auto) 0.4, Sodium Level 142, Potassium Level 4.2, Chloride Level 99, Carbon Dioxide Level 35H, Anion Gap 8, Blood Urea Nitrogen 41H, Creatinine 10.0H, Estimat Glomerular Filtration Rate 6.5, Glucose Level 81 , Calcium Level 8.8, Total Bilirubin 0.9, Aspartate Amino Transf (AST/SGOT) 352H , Alanine Aminotransferase (ALT/SGPT) 488H, Alkaline Phosphatase 114, Pro-B- Type Natriuretic Peptide > 89334X, Total Protein 6.7, Albumin 2.2L, Globulin 4.5 , Albumin/Globulin Ratio 0.5L, Random Vancomycin Level 20.2 Height (Feet): 5 Height (Inches): 7.00 Weight (Pounds): 214 General Appearance: no apparent distress Respiratory/Chest: decreased breath sounds Abdomen: distended Objective no change LIAM MONTELONGO Jun 13, 2017 11:30
[2017-06-13 12:05] VITALS: BP 115/76
[2017-06-13] MEDS: Nitroglycerin Patch 0.4mg TDERMAL SCH (12:06)
[2017-06-13 16:45] VITALS: BP 133/73
--- NOTE | 2017-06-13 17:54 | Infectious Diseases Prog Note ---
Assessment/Plan Assessment/Plan ASSESSMENT: The patient is a 57-year-old male with, Low-grade fever, SP Status post leukocytosis. Influenza A and B screen negative Transaminitis Pneumonia with possible cavitary lesion/hemoptysis. SCx: Neg Rsp status improved up to yesterday but on 06/[address] his condition worsen T-SPOT :Neg AFB x 3 : Neg MTB PCR x2 : neg cryptococcus Ag : neg CT: 7.8 x 5.3 x 6.6 cm dense opacity in the posterior inferior right upper lobe with a central cavitation. Chest x-ray : right mid lung infiltrate, possible cavitation Rule out tuberculosis, fungal infection, or necrotizing pneumonia. CRP 14 Influenza negative HIV : NEG Hep Panel B neg , C Ab : +ve Seizure disorder History of CVA History of pacemaker placement Hyperlipidemia Hypertension COPD/asthma End-stage renal disease, on hemodialysis Diabetes Anxiety Anemia Echo, ejection fraction 45% to 50%. PLAN: Patient on vancomycin day # 10 start merrem and Levaquin , duration unknown at this time, ( depending on repeat CT result ) SP 3/0 SP Zosyn d# 10 SP 3/4 SP Zithromax D# 6 sputum culture (bacterial, fungal, and AFB x3). sputum for AFB X 3 Coccidioidal . Galactomannan and Fungitell. Airborne isolation for now may need BAL , will defer this to Pul team CT of Chest US Abd : P Hep C PCR TB Control recs to start TB Rx, doubt is needed at his time pt has pt improved initially, wups so far neg for TC, has increased of LFT may consider TB Rx if CT does not show improvement Subjective Allergies: Coded Allergies: No Known Allergies (Unverified , 10/24/15) Subjective off and on BiPAP , could not go for CT for desaturation afebrile Objective Vital Signs Last 24 Hour Vital Signs Date Time Temp Pulse Resp B/P (MAP) Pulse Ox O2 Delivery O2 Flow Rate FiO2 06/13/17 16:45 97.9 79 15 133/73 95 Non-Rebreather 100 97.9 06/13/17 12:06 115/76 06/13/17 12:05 98.2 74 19 115/76 99 Bi-pap 80 98.2 06/13/17 12:00 80 06/13/17 11:45 73 06/13/17 11:30 80 06/13/17 09:15 78 151/80 06/13/17 09:15 151/80 06/13/17 08:00 98.2 78 24 151/80 92 Non-Rebreather 100 98.2 06/13/17 07:40 87 06/13/17 07:39 94 Non-Rebreather 15.0 100 06/13/17 07:39 Non-Rebreather 15.0 100 06/13/17 05:47 98.3 06/13/17 05:17 98.3 06/13/17 04:00 55 06/13/17 04:00 98.3 83 21 140/82 97 Venturi Mask 55 98.3 06/13/17 03:48 74 06/13/17 00:39 98.7 06/13/17 00:20 81 21 118/73 95 Venturi Mask 55 06/13/17 00:11 85 06/13/17 00:00 55 06/12/17 23:50 98.7 82 17 135/78 94 Venturi Mask 55 98.7 06/12/17 23:40 98.6 06/12/17 21:30 Venturi Mask 06/12/17 21:30 Venturi Mask 55 06/12/17 21:00 81 118/73 06/12/17 20:00 98.6 70 20 123/76 99 Venturi Mask 55 98.6 06/12/17 19:57 Non-Rebreather 15.0 100 06/12/17 19:57 92 Non-Rebreather 15.0 100 06/12/17 19:17 73 06/12/17 18:00 123/76 06/12/17 17:55 Bi-pap 80 Height (Feet): 5 Height (Inches): 7.00 Weight (Pounds): 214 HEENT: anicteric Respiratory/Chest: no respiratory distress Cardiovascular: no gallop/murmur Abdomen: no organomegaly Laboratory Tests Test 06/13/17 04:50 White Blood Count 5.4 K/UL (4.8-10.8) Red Blood Count 2.63 M/UL (4.70-6.10) L Hemoglobin 8.0 G/DL (14.2-18.0) L Hematocrit 25.2 % (42.0-52.0) L Mean Corpuscular Volume 96 FL (80-99) Mean Corpuscular Hemoglobin 30.5 PG (27.0-31.0) Mean Corpuscular Hemoglobin Concent 31.8 G/DL (32.0-36.0) L Red Cell Distribution Width 17.0 % (11.6-14.8) H Platelet Count 105 K/UL (150-450) L Mean Platelet Volume 7.0 FL (6.5-10.1) Neutrophils (%) (Auto) 68.1 % (45.0-75.0) Lymphocytes (%) (Auto) 13.2 % (20.0-45.0) L Monocytes (%) (Auto) 16.4 % (1.0-10.0) H Eosinophils (%) (Auto) 1.9 % (0.0-3.0) Basophils (%) (Auto) 0.4 % (0.0-2.0) Sodium Level 142 MMOL/L (136-145) Potassium Level 4.2 MMOL/L (3.5-5.1) Chloride Level 99 MMOL/L (98-107) Carbon Dioxide Level 35 MMOL/L (21-32) H Anion Gap 8 mmol/L (5-15) Blood Urea Nitrogen 41 mg/dL (7-18) H Creatinine 10.0 MG/DL (0.55-1.30) H Estimat Glomerular Filtration Rate 6.5 mL/min (>60) Glucose Level 81 MG/DL (74-106) Calcium Level 8.8 MG/DL (8.5-10.1) Total Bilirubin 0.9 MG/DL (0.2-1.0) Aspartate Amino Transf (AST/SGOT) 352 U/L (15-37) H Alanine Aminotransferase (ALT/SGPT) 488 U/L (12-78) H Alkaline Phosphatase 114 U/L (46-116) Pro-B-Type Natriuretic Peptide > 85968 pg/mL (0-125) H Total Protein 6.7 G/DL (6.4-8.2) Albumin 2.2 G/DL (3.4-5.0) L Globulin 4.5 g/dL Albumin/Globulin Ratio 0.5 (1.0-2.7) L Random Vancomycin Level 20.2 ug/mL Current Medications Medications (Trade) Dose Ordered Sig/Jose Route PRN Reason Start Time Stop Time Status Last Admin Dose Admin Acetaminophen (Tylenol) 650 mg Q4H PRN RECTAL Mild Pain (Pain Scale 1-3) 06/09/17 16:30 07/09/17 16:29 06/09/17 16:37 Carisoprodol (Soma) 350 mg BID ORAL 06/04/17 18:00 07/04/17 17:59 06/13/17 09:14 Carisoprodol (Soma) 350 mg Q6H PRN ORAL MUSCLE SPASMS 06/03/17 13:30 07/03/17 13:29 06/11/17 13:34 Carvedilol (Coreg) 25 mg EVERY 12 HOURS ORAL 06/04/17 11:30 07/04/17 11:29 06/13/17 09:15 Chlorhexidine Gluconate (Mireille-Hex 2%) 1 applic DAILY@2000 TOPIC 06/05/17 20:00 07/05/17 19:59 06/12/17 21:10 Clonidine HCl (Catapres Tab) 0.1 mg Q4H PRN ORAL bp over 160 syst 06/03/17 16:30 07/03/17 16:29 Dextrose (Dextrose 50%) STAT PRN IV Hypoglycemia 06/03/17 13:30 07/03/17 13:29 06/09/17 16:05 Docusate Sodium (Colace) 100 mg THREE TIMES A DAY ORAL 06/03/17 18:00 07/03/17 17:59 06/13/17 09:15 Lisinopril (Prinivil) 20 mg BID ORAL 06/04/17 09:00 07/04/17 08:59 06/13/17 09:15 Morphine Sulfate (Morphine Sulfate) 2 mg Q4H PRN IVP BREAKTHROUGH CHEST PAIN 06/10/17 07:00 06/17/17 06:59 06/13/17 15:08 Nitroglycerin (Ntg) 0.4 mg Q5M PRN SL Prn Chest Pain 06/04/17 09:15 07/04/17 09:14 06/05/17 00:34 Nitroglycerin (Ntg) 1 patch Q24H TDERMAL 06/04/17 11:30 07/04/17 11:29 06/13/17 12:06 Ondansetron HCl (Zofran) 4 mg Q6H PRN IVP Nausea & Vomiting 06/03/17 13:30 07/03/17 13:29 Pantoprazole (Protonix) 40 mg DAILY ORAL 06/03/17 17:00 07/03/17 16:59 06/13/17 09:14 Piperacillin Sod/ Tazobactam Sod 2.25 gm/Sodium Chloride 55 ml @ 110 mls/hr Q8H IVPB 06/07/17 16:00 06/14/17 15:59 06/13/17 16:42 Polyethylene Glycol (Miralax) 17 gm DAILYPRN PRN ORAL Constipation 06/03/17 13:30 07/03/17 13:29 Promethazine HCl/ Codeine (Phenergan with Codeine) 5 ml Q4H PRN ORAL For Cough 06/05/17 08:30 07/05/17 08:29 Sevelamer Carbonate (Renvela) 2,400 mg THREE TIMES A DAY ORAL 06/09/17 13:00 07/09/17 12:59 06/13/17 09:14 Vancomycin HCl (Vanco rx to dose) 1 ea DAILY PRN MISC Per rx protocol 06/04/17 12:45 07/04/17 12:44 PREET GUAJARDO M.D. Jun 13, 2017 17:54
--- NOTE | 2017-06-13 18:29 | Diagnostic Imaging Report ---
Indication: Abnormal liver function tests, abnormal renal function tests Technique: Prado-scale and duplex images of the upper abdomen were obtained Comparison: 10/25/2015 Findings: Gallbladder demonstrates gallstones. The gallbladder wall is thickened and there is pericholecystic fluid. These findings are also evident previously, however. Common bile duct measures 6 mm in diameter. No intrahepatic biliary ductal dilatation. Liver is equivocally enlarged, demonstrates surface micronodularity, grossly normal echotexture. There is ascites fluid. Portal vein and hepatic veins are patent. Pancreas is unremarkable. Spleen is enlarged, measuring 13.7 cm long axis dimension. Left kidney measures 10.2 cm in length. Right kidney measures 9.6 cm length. Both kidneys demonstrate cortical thinning and equivocally slightly increased echogenicity. There is no hydronephrosis. There is a left renal cyst . Abdominal aorta is partially obscured by bowel gas, visualized portions are non-aneurysmal . Impression: Ascites Evidence of hepatic cirrhosis Cholelithiasis. There is gallbladder wall thickening, likely related to hemodynamic abnormalities related to the hepatic abnormality, particularly as this is evident on the prior exam of 2 years earlier. However, acute cholecystitis cannot be completely ruled out, and hepatobiliary scanning is recommended if there is high clinical suspicion Splenomegaly. Possible hepatomegaly Echogenic kidneys with cortical thinning, likely chronic medical renal disease. Left renal cyst Note nonvisualization of portions of the abdominal aorta
--- NOTE | 2017-06-13 19:06 | General Progress Note ---
Assessment/Plan Assessment/Plan Assessment - Anemia - OB (+) Stool - R/O TB - ESRD/HD - DM - HTN - COPD - gallstones - rising LFT concerning - unable to get CT since unstable --> await abd u/s Recommendations - push po - monitor LFT - minimize meds - d/c non vital meds - abd u/s - transfuse PRN - Acid blockade - Defer EGD/Colon a this time Subjective Allergies: Coded Allergies: No Known Allergies (Unverified , 10/24/15) Subjective Above noted patient moaning ? abd pain - not clear LFT higher unable to goto CT due to respiratory distress stat ultrasound ordered Objective Last 24 Hour Vital Signs Date Time Temp Pulse Resp B/P (MAP) Pulse Ox O2 Delivery O2 Flow Rate FiO2 06/13/17 18:20 133/73 06/13/17 16:45 97.9 79 15 133/73 95 Non-Rebreather 100 97.9 06/13/17 16:18 87 06/13/17 12:06 115/76 06/13/17 12:05 98.2 74 19 115/76 99 Bi-pap 80 98.2 06/13/17 12:00 80 06/13/17 11:45 73 06/13/17 11:30 80 06/13/17 09:15 78 151/80 06/13/17 09:15 151/80 06/13/17 08:00 98.2 78 24 151/80 92 Non-Rebreather 100 98.2 06/13/17 07:40 87 06/13/17 07:39 94 Non-Rebreather 15.0 100 06/13/17 07:39 Non-Rebreather 15.0 100 06/13/17 05:47 98.3 06/13/17 05:17 98.3 06/13/17 04:00 55 06/13/17 04:00 98.3 83 21 140/82 97 Venturi Mask 55 98.3 06/13/17 03:48 74 06/13/17 00:39 98.7 06/13/17 00:20 81 21 118/73 95 Venturi Mask 55 06/13/17 00:11 85 06/13/17 00:00 55 06/12/17 23:50 98.7 82 17 135/78 94 Venturi Mask 55 98.7 06/12/17 23:40 98.6 06/12/17 21:30 Venturi Mask 06/12/17 21:30 Venturi Mask 55 06/12/17 21:00 81 118/73 06/12/17 20:00 98.6 70 20 123/76 99 Venturi Mask 55 98.6 06/12/17 19:57 Non-Rebreather 15.0 100 06/12/17 19:57 92 Non-Rebreather 15.0 100 06/12/17 19:17 73 Intake and Output 06/12/17 06/13/17 19:00 07:00 Intake Total 450 ml 310 ml Output Total 3065 ml Balance 450 ml -2755 ml Intake Oral 100 ml 200 ml IV Total 110 ml 110 ml Other 240 ml Hemodialysis UF 3065 ml # Voids 2 # Bowel Movements 4 Laboratory Tests 06/13/17 04:50: White Blood Count 5.4, Red Blood Count 2.63L, Hemoglobin 8.0L, Hematocrit 25.2L , Mean Corpuscular Volume 96, Mean Corpuscular Hemoglobin 30.5, Mean Corpuscular Hemoglobin Concent 31.8L, Red Cell Distribution Width 17.0H, Platelet Count 105L, Mean Platelet Volume 7.0, Neutrophils (%) (Auto) 68.1, Lymphocytes (%) (Auto) 13.2L, Monocytes (%) (Auto) 16.4H, Eosinophils (%) (Auto ) 1.9, Basophils (%) (Auto) 0.4, Sodium Level 142, Potassium Level 4.2, Chloride Level 99, Carbon Dioxide Level 35H, Anion Gap 8, Blood Urea Nitrogen 41H, Creatinine 10.0H, Estimat Glomerular Filtration Rate 6.5, Glucose Level 81 , Calcium Level 8.8, Total Bilirubin 0.9, Aspartate Amino Transf (AST/SGOT) 352H , Alanine Aminotransferase (ALT/SGPT) 488H, Alkaline Phosphatase 114, Pro-B- Type Natriuretic Peptide > 03011Y, Total Protein 6.7, Albumin 2.2L, Globulin 4.5 , Albumin/Globulin Ratio 0.5L, Random Vancomycin Level 20.2 Height (Feet): 5 Height (Inches): 7.00 Weight (Pounds): 214 Objective WDWN AA Man NCAT supple CTA RRR Soft mildly distended No edema KHORRAMI,PAYMAN Jun 13, 2017 19:05
--- NOTE | 2017-06-13 19:10 | Cardiology Progress Note ---
Assessment/Plan Assessment/Plan plueritic chest pain neg recent sig perfusion abn; systolic dysfunction on mild degree involving the septum cavitating lung lesion esrd htn anemia icd hx icd trop min abn related to esrd likely as no peak no jennifer venous duplex neg echo reviewed swma in septum (possible) as tech difficult study ef 45% dialysis per dr grimaldo bp better won coreg , acei and ntp afb smear neg cxr reviewed Subjective ROS Limited/Unobtainable: Yes Subjective sleepign on dialysis Objective Last 24 Hour Vital Signs Date Time Temp Pulse Resp B/P (MAP) Pulse Ox O2 Delivery O2 Flow Rate FiO2 06/13/17 18:20 133/73 06/13/17 16:45 97.9 79 15 133/73 95 Non-Rebreather 100 97.9 06/13/17 16:18 87 06/13/17 12:06 115/76 06/13/17 12:05 98.2 74 19 115/76 99 Bi-pap 80 98.2 06/13/17 12:00 80 06/13/17 11:45 73 06/13/17 11:30 80 06/13/17 09:15 78 151/80 06/13/17 09:15 151/80 06/13/17 08:00 98.2 78 24 151/80 92 Non-Rebreather 100 98.2 06/13/17 07:40 87 06/13/17 07:39 94 Non-Rebreather 15.0 100 06/13/17 07:39 Non-Rebreather 15.0 100 06/13/17 05:47 98.3 06/13/17 05:17 98.3 06/13/17 04:00 55 06/13/17 04:00 98.3 83 21 140/82 97 Venturi Mask 55 98.3 06/13/17 03:48 74 06/13/17 00:39 98.7 06/13/17 00:20 81 21 118/73 95 Venturi Mask 55 06/13/17 00:11 85 06/13/17 00:00 55 06/12/17 23:50 98.7 82 17 135/78 94 Venturi Mask 55 98.7 06/12/17 23:40 98.6 06/12/17 21:30 Venturi Mask 06/12/17 21:30 Venturi Mask 55 06/12/17 21:00 81 118/73 06/12/17 20:00 98.6 70 20 123/76 99 Venturi Mask 55 98.6 06/12/17 19:57 Non-Rebreather 15.0 100 06/12/17 19:57 92 Non-Rebreather 15.0 100 06/12/17 19:17 73 General Appearance: no apparent distress Intake and Output 06/12/17 06/13/17 19:00 07:00 Intake Total 450 ml 310 ml Output Total 3065 ml Balance 450 ml -2755 ml Intake Oral 100 ml 200 ml IV Total 110 ml 110 ml Other 240 ml Hemodialysis UF 3065 ml # Voids 2 # Bowel Movements 4 Laboratory Tests Test 06/13/17 04:50 White Blood Count 5.4 K/UL (4.8-10.8) Red Blood Count 2.63 M/UL (4.70-6.10) L Hemoglobin 8.0 G/DL (14.2-18.0) L Hematocrit 25.2 % (42.0-52.0) L Mean Corpuscular Volume 96 FL (80-99) Mean Corpuscular Hemoglobin 30.5 PG (27.0-31.0) Mean Corpuscular Hemoglobin Concent 31.8 G/DL (32.0-36.0) L Red Cell Distribution Width 17.0 % (11.6-14.8) H Platelet Count 105 K/UL (150-450) L Mean Platelet Volume 7.0 FL (6.5-10.1) Neutrophils (%) (Auto) 68.1 % (45.0-75.0) Lymphocytes (%) (Auto) 13.2 % (20.0-45.0) L Monocytes (%) (Auto) 16.4 % (1.0-10.0) H Eosinophils (%) (Auto) 1.9 % (0.0-3.0) Basophils (%) (Auto) 0.4 % (0.0-2.0) Sodium Level 142 MMOL/L (136-145) Potassium Level 4.2 MMOL/L (3.5-5.1) Chloride Level 99 MMOL/L (98-107) Carbon Dioxide Level 35 MMOL/L (21-32) H Anion Gap 8 mmol/L (5-15) Blood Urea Nitrogen 41 mg/dL (7-18) H Creatinine 10.0 MG/DL (0.55-1.30) H Estimat Glomerular Filtration Rate 6.5 mL/min (>60) Glucose Level 81 MG/DL (74-106) Calcium Level 8.8 MG/DL (8.5-10.1) Total Bilirubin 0.9 MG/DL (0.2-1.0) Aspartate Amino Transf (AST/SGOT) 352 U/L (15-37) H Alanine Aminotransferase (ALT/SGPT) 488 U/L (12-78) H Alkaline Phosphatase 114 U/L (46-116) Pro-B-Type Natriuretic Peptide > 28922 pg/mL (0-125) H Total Protein 6.7 G/DL (6.4-8.2) Albumin 2.2 G/DL (3.4-5.0) L Globulin 4.5 g/dL Albumin/Globulin Ratio 0.5 (1.0-2.7) L Random Vancomycin Level 20.2 ug/mL PRECIOUS GARCIA Jun 13, 2017 19:10
--- NOTE | 2017-06-13 19:34 | Internal Med Progress Note ---
Subjective Date of Service: Jun 13, 2017 Physician Name Zoey Pires Attending Physician Chaitanya Weinstein MD Current Medications Medications (Trade) Dose Ordered Sig/Jose Route PRN Reason Start Time Stop Time Status Last Admin Dose Admin Acetaminophen (Tylenol) 650 mg Q4H PRN RECTAL Mild Pain (Pain Scale 1-3) 06/09/17 16:30 07/09/17 16:29 06/09/17 16:37 Carisoprodol (Soma) 350 mg BID ORAL 06/04/17 18:00 07/04/17 17:59 06/13/17 18:21 Carisoprodol (Soma) 350 mg Q6H PRN ORAL MUSCLE SPASMS 06/03/17 13:30 07/03/17 13:29 06/11/17 13:34 Carvedilol (Coreg) 25 mg EVERY 12 HOURS ORAL 06/04/17 11:30 07/04/17 11:29 06/13/17 09:15 Chlorhexidine Gluconate (Mireille-Hex 2%) 1 applic DAILY@2000 TOPIC 06/05/17 20:00 07/05/17 19:59 06/12/17 21:10 Clonidine HCl (Catapres Tab) 0.1 mg Q4H PRN ORAL bp over 160 syst 06/03/17 16:30 07/03/17 16:29 Dextrose (Dextrose 50%) STAT PRN IV Hypoglycemia 06/03/17 13:30 07/03/17 13:29 06/09/17 16:05 Docusate Sodium (Colace) 100 mg THREE TIMES A DAY ORAL 06/03/17 18:00 07/03/17 17:59 06/13/17 18:21 Levofloxacin 100 ml @ 100 mls/hr Q48H IVPB 06/15/17 20:00 06/22/17 19:59 Levofloxacin 150 ml @ 100 mls/hr ONCE ONCE IVPB 06/13/17 20:00 06/13/17 21:29 Lisinopril (Prinivil) 20 mg BID ORAL 06/04/17 09:00 07/04/17 08:59 06/13/17 18:20 Meropenem 500 mg/ Sodium Chloride 55 ml @ 110 mls/hr Q12HR IV 06/13/17 21:00 06/18/17 20:59 Morphine Sulfate (Morphine Sulfate) 2 mg Q4H PRN IVP BREAKTHROUGH CHEST PAIN 06/10/17 07:00 06/17/17 06:59 06/13/17 15:08 Nitroglycerin (Ntg) 0.4 mg Q5M PRN SL Prn Chest Pain 06/04/17 09:15 07/04/17 09:14 06/05/17 00:34 Nitroglycerin (Ntg) 1 patch Q24H TDERMAL 06/04/17 11:30 07/04/17 11:29 06/13/17 12:06 Ondansetron HCl (Zofran) 4 mg Q6H PRN IVP Nausea & Vomiting 06/03/17 13:30 07/03/17 13:29 Pantoprazole (Protonix) 40 mg DAILY ORAL 06/03/17 17:00 07/03/17 16:59 06/13/17 09:14 Polyethylene Glycol (Miralax) 17 gm DAILYPRN PRN ORAL Constipation 06/03/17 13:30 07/03/17 13:29 Promethazine HCl/ Codeine (Phenergan with Codeine) 5 ml Q4H PRN ORAL For Cough 06/05/17 08:30 07/05/17 08:29 Sevelamer Carbonate (Renvela) 2,400 mg THREE TIMES A DAY ORAL 06/09/17 13:00 07/09/17 12:59 06/13/17 18:20 Vancomycin HCl (Vanco rx to dose) 1 ea DAILY PRN MISC Per rx protocol 06/04/17 12:45 07/04/17 12:44 Allergies: Coded Allergies: No Known Allergies (Unverified , 10/24/15) ROS Limited/Unobtainable: Yes Subjective 57 YO M admitted with chest pain and shortness of breath. Now pneumonia and candelaria heart failure. Back on non rebreather. Cover for Int Misbah-Dr Weinstein. HIMANSHU Objective Last Vital Signs Date Time Temp Pulse Resp B/P (MAP) Pulse Ox O2 Delivery O2 Flow Rate FiO2 06/13/17 18:20 133/73 06/13/17 16:45 97.9 79 15 95 Non-Rebreather 100 97.9 06/13/17 07:39 15.0 Laboratory Tests Test 06/13/17 04:50 White Blood Count 5.4 K/UL (4.8-10.8) Red Blood Count 2.63 M/UL (4.70-6.10) L Hemoglobin 8.0 G/DL (14.2-18.0) L Hematocrit 25.2 % (42.0-52.0) L Mean Corpuscular Volume 96 FL (80-99) Mean Corpuscular Hemoglobin 30.5 PG (27.0-31.0) Mean Corpuscular Hemoglobin Concent 31.8 G/DL (32.0-36.0) L Red Cell Distribution Width 17.0 % (11.6-14.8) H Platelet Count 105 K/UL (150-450) L Mean Platelet Volume 7.0 FL (6.5-10.1) Neutrophils (%) (Auto) 68.1 % (45.0-75.0) Lymphocytes (%) (Auto) 13.2 % (20.0-45.0) L Monocytes (%) (Auto) 16.4 % (1.0-10.0) H Eosinophils (%) (Auto) 1.9 % (0.0-3.0) Basophils (%) (Auto) 0.4 % (0.0-2.0) Sodium Level 142 MMOL/L (136-145) Potassium Level 4.2 MMOL/L (3.5-5.1) Chloride Level 99 MMOL/L (98-107) Carbon Dioxide Level 35 MMOL/L (21-32) H Anion Gap 8 mmol/L (5-15) Blood Urea Nitrogen 41 mg/dL (7-18) H Creatinine 10.0 MG/DL (0.55-1.30) H Estimat Glomerular Filtration Rate 6.5 mL/min (>60) Glucose Level 81 MG/DL (74-106) Calcium Level 8.8 MG/DL (8.5-10.1) Total Bilirubin 0.9 MG/DL (0.2-1.0) Aspartate Amino Transf (AST/SGOT) 352 U/L (15-37) H Alanine Aminotransferase (ALT/SGPT) 488 U/L (12-78) H Alkaline Phosphatase 114 U/L (46-116) Pro-B-Type Natriuretic Peptide > 38527 pg/mL (0-125) H Total Protein 6.7 G/DL (6.4-8.2) Albumin 2.2 G/DL (3.4-5.0) L Globulin 4.5 g/dL Albumin/Globulin Ratio 0.5 (1.0-2.7) L Random Vancomycin Level 20.2 ug/mL Intake and Output 06/12/17 06/13/17 19:00 07:00 Intake Total 450 ml 310 ml Output Total 3065 ml Balance 450 ml -2755 ml Intake Oral 100 ml 200 ml IV Total 110 ml 110 ml Other 240 ml Hemodialysis UF 3065 ml # Voids 2 # Bowel Movements 4 Objective General Appearance: WD/WN, alert, moderate distress EENT: PERRL/EOMI, normal ENT inspection Neck: non-tender, normal alignment, supple, normal inspection Cardiovascular: normal peripheral pulses, normal rate, regular rhythm, no gallop/murmur, no JVD Respiratory/Chest: Non rebreather; respiratory distress, crackles/rales, rhonchi - bilaterally, expiratory wheezing Abdomen: normal bowel sounds, non tender, soft, no organomegaly, no mass Extremities: normal range of motion 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 Currently on Non rebreather. See pulmonay note. (2) Pleuritic chest pain (3) Hemoptysis Assessment & Plan: Due to pneumonia (4) Pneumonia Assessment & Plan: RUL and cavitary. Concerning for TB. Await AFB cultures- see ID consult. Continue vanco and zosyn per ID (5) Shortness of breath (6) ESRD (end stage renal disease) on dialysis Assessment & Plan: See nephrology note. Hemodialysis 06/06/17 per nephrology (7) Hyperkalemia Assessment & Plan: Due to renal failure. Hemodialysis 06/12/17 per nephrology (8) COPD (chronic obstructive pulmonary disease) (9) HTN (hypertension) Assessment & Plan: Continue coreg and lisinopril. (10) CHF (congestive heart failure) (11) Elevated troponin Assessment & Plan: ?due to renal failure? See cardiology note. Status: not improved ZOEY PIRES Jun 13, 2017 19:34
[2017-06-13 20:00] VITALS: BP 118/64
[2017-06-13] MEDS: Dyna-Hex 2% Top Sol 2oz TOPIC SCH (20:26)
[2017-06-13] MEDS ORDERED: ALPRAZolam 0.5mg tab ORAL PRN (20:45)
[2017-06-13] MEDS: Meropenem 500 MG in NS 55 ML IV SCH (21:52)
[2017-06-13] MEDS: ALPRAZolam 0.5mg tab ORAL SCH (21:53)
[2017-06-14] VITALS: BP 114/75
[2017-06-14] MEDS: Morphine Sulfate 2mg/ml Inj IVP PRN ×4 (02:21→20:41)
[2017-06-14 04:00] VITALS: BP 114/76
[2017-06-14 05:22] LABS: HEMATOCRIT 22.9 % (42.0-52.0); HEMOGLOBIN 7.2 G/DL (14.2-18.0); MEAN CORPUSCULAR VOLUME 97 FL (80-99); PLATELET COUNT 98 K/UL (150-450); RED BLOOD COUNT 2.38 M/UL (4.70-6.10); RED CELL DISTRIBUTION WIDTH 16.6 % (11.6-14.8); WHITE BLOOD COUNT 4.3 K/UL (4.8-10.8)
[2017-06-14 05:56] LABS: ALANINE AMINOTRANSFERASE 400 U/L (12-78); ALBUMIN 2.1 G/DL (3.4-5.0); ALBUMIN/GLOBULIN RATIO 0.5 (1.0-2.7); ALKALINE PHOSPHATASE 104 U/L (46-116); ANION GAP 6 mmol/L (5-15); ASPARTATE AMINO TRANSFERASE 197 U/L (15-37); BILIRUBIN,TOTAL 0.8 MG/DL (0.2-1.0); BLOOD UREA NITROGEN 48 mg/dL (7-18); CALCIUM 8.5 MG/DL (8.5-10.1); CARBON DIOXIDE 36 MMOL/L (21-32); CHLORIDE 100 MMOL/L (98-107); CREATININE 11.9 MG/DL (0.55-1.30); PHOSPHORUS 7.1 MG/DL (2.5-4.9); POTASSIUM 4.3 MMOL/L (3.5-5.1); SODIUM 142 MMOL/L (136-145)
--- NOTE | 2017-06-14 07:33 | Nephrology Progress Note ---
Assessment/Plan Problem List: (1) ESRD (end stage renal disease) on dialysis (2) Shortness of breath (3) Anemia Assessment ESRD , missed HD , admitted with high K and pulmonary edema Acute respiratory distress due to volume overload elevated troponin r/o ACS h/o COPD ? exacerbation HTN urgency Cardiomyopathy L AICD anemia of chronic kidney disease Hx of CVA Plan Plan: Low H&H - consider transfusion HD next 06/14 Transfused Phos binders BP meds adjustment Optimize cardiac status per orders Subjective ROS Limited/Unobtainable: No Constitutional: Reports: malaise Objective Objective Last 24 Hour Vital Signs Date Time Temp Pulse Resp B/P (MAP) Pulse Ox O2 Delivery O2 Flow Rate FiO2 06/14/17 04:16 97.9 06/14/17 04:00 97.6 85 20 114/76 99 Non-Rebreather 96 97.6 06/14/17 04:00 85 06/14/17 02:21 97.9 06/14/17 00:00 71 06/14/17 00:00 97.9 74 23 114/75 100 Non-Rebreather 96 97.9 06/13/17 22:55 77 32 99 Full Face 80 06/13/17 21:20 101 20 Non-Rebreather 100 06/13/17 20:28 97.9 06/13/17 20:27 80 118/64 06/13/17 20:00 85 06/13/17 20:00 97.5 80 13 118/64 100 Non-Rebreather 100 97.5 06/13/17 19:43 94 Non-Rebreather 15.0 100 06/13/17 19:43 Non-Rebreather 15.0 100 06/13/17 18:20 133/73 06/13/17 16:45 97.9 79 15 133/73 95 Non-Rebreather 100 97.9 06/13/17 16:18 87 06/13/17 12:06 115/76 06/13/17 12:05 98.2 74 19 115/76 99 Bi-pap 80 98.2 06/13/17 12:00 80 06/13/17 11:45 73 06/13/17 11:30 80 06/13/17 09:15 78 151/80 06/13/17 09:15 151/80 06/13/17 08:00 98.2 78 24 151/80 92 Non-Rebreather 100 98.2 06/13/17 07:40 87 06/13/17 07:39 94 Non-Rebreather 15.0 100 06/13/17 07:39 Non-Rebreather 15.0 100 Intake and Output 06/13/17 06/14/17 19:00 07:00 Intake Total 446 ml 291 ml Balance 446 ml 291 ml Intake Oral 336 ml 236 ml IV Total 110 ml 55 ml # Bowel Movements 2 Laboratory Tests 06/14/17 03:30: White Blood Count 4.3L, Red Blood Count 2.38L, Hemoglobin 7.2L, Hematocrit 22.9L , Mean Corpuscular Volume 97, Mean Corpuscular Hemoglobin 30.1, Mean Corpuscular Hemoglobin Concent 31.2L, Red Cell Distribution Width 16.6H, Platelet Count 98L, Mean Platelet Volume 7.2, Neutrophils (%) (Auto) , Lymphocytes (%) (Auto) , Monocytes (%) (Auto) , Eosinophils (%) (Auto) , Basophils (%) (Auto) , Neutrophils % (Manual) [Pending], Lymphocytes % (Manual) [Pending], Platelet Estimate [Pending], Platelet Morphology [Pending], Sodium Level 142, Potassium Level 4.3, Chloride Level 100, Carbon Dioxide Level 36H, Anion Gap 6, Blood Urea Nitrogen 48H, Creatinine 11.9H, Estimat Glomerular Filtration Rate 5.3, Glucose Level 72L, Calcium Level 8.5, Phosphorus Level 7.1H , Magnesium Level 2.0, Total Bilirubin 0.8, Aspartate Amino Transf (AST/SGOT) 197H, Alanine Aminotransferase (ALT/SGPT) 400H, Alkaline Phosphatase 104, Total Protein 6.4, Albumin 2.1L, Globulin 4.3, Albumin/Globulin Ratio 0.5L, Hepatitis C Antibody [Pending], Hepatitis C RNA (PCR) IUs/ml [Pending], Hepatitis C RNA ( PCR) log IUs/ml [Pending] Height (Feet): 5 Height (Inches): 7.00 Weight (Pounds): 219 General Appearance: no apparent distress Objective no change LIAM MONTELONGO Jun 14, 2017 07:33
[2017-06-14 08:00] VITALS: BP 138/92
--- NOTE | 2017-06-14 08:21 | Pulmonology Progress Note ---
Assessment/Plan Problems: (1) Respiratory failure (2) Pneumonia (3) Hemoptysis (4) Anemia (5) ESRD (end stage renal disease) on dialysis (6) HTN (hypertension) Assessment/Plan slowly improving cxr in a few days on venturi mask clinically better trransfuse prbc prn HD by buyer agent check sputum Sputum shows only charli continue abx, repeat cultures hold heparin for low PLT f/u wbc and cultures Subjective ROS Limited/Unobtainable: No Constitutional: Reports: no symptoms HEENT: Repors: no symptoms Respiratory: Reports: no symptoms Allergies: Coded Allergies: No Known Allergies (Unverified , 10/24/15) Objective Last 24 Hour Vital Signs Date Time Temp Pulse Resp B/P (MAP) Pulse Ox O2 Delivery O2 Flow Rate FiO2 06/14/17 08:00 98.6 86 26 138/92 95 Non-Rebreather 96 98.6 06/14/17 07:40 93 Non-Rebreather 15.0 100 06/14/17 07:40 Non-Rebreather 15.0 100 06/14/17 04:16 97.9 06/14/17 04:00 97.6 85 20 114/76 99 Non-Rebreather 96 97.6 06/14/17 04:00 85 06/14/17 02:21 97.9 06/14/17 00:00 71 06/14/17 00:00 97.9 74 23 114/75 100 Non-Rebreather 96 97.9 06/13/17 22:55 77 32 99 Full Face 80 06/13/17 21:20 101 20 Non-Rebreather 100 06/13/17 20:28 97.9 06/13/17 20:27 80 118/64 06/13/17 20:00 85 06/13/17 20:00 97.5 80 13 118/64 100 Non-Rebreather 100 97.5 06/13/17 19:43 94 Non-Rebreather 15.0 100 06/13/17 19:43 Non-Rebreather 15.0 100 06/13/17 18:20 133/73 06/13/17 16:45 97.9 79 15 133/73 95 Non-Rebreather 100 97.9 06/13/17 16:18 87 06/13/17 12:06 115/76 06/13/17 12:05 98.2 74 19 115/76 99 Bi-pap 80 98.2 06/13/17 12:00 80 06/13/17 11:45 73 06/13/17 11:30 80 06/13/17 09:15 78 151/80 06/13/17 09:15 151/80 Intake and Output 06/13/17 06/14/17 19:00 07:00 Intake Total 446 ml 291 ml Balance 446 ml 291 ml Intake Oral 336 ml 236 ml IV Total 110 ml 55 ml # Bowel Movements 2 General Appearance: WD/WN HEENT: normocephalic, atraumatic Respiratory/Chest: chest wall non-tender, lungs clear Cardiovascular: normal peripheral pulses, normal rate Abdomen: normal bowel sounds, soft, non tender Genitourinary: normal external genitalia Extremities: no cyanosis, no clubbing Lymphatic: no neck adenopathy Laboratory Tests 06/14/17 03:30: White Blood Count 4.3L, Red Blood Count 2.38L, Hemoglobin 7.2L, Hematocrit 22.9L , Mean Corpuscular Volume 97, Mean Corpuscular Hemoglobin 30.1, Mean Corpuscular Hemoglobin Concent 31.2L, Red Cell Distribution Width 16.6H, Platelet Count 98L, Mean Platelet Volume 7.2, Neutrophils (%) (Auto) , Lymphocytes (%) (Auto) , Monocytes (%) (Auto) , Eosinophils (%) (Auto) , Basophils (%) (Auto) , Neutrophils % (Manual) [Pending], Lymphocytes % (Manual) [Pending], Platelet Estimate [Pending], Platelet Morphology [Pending], Sodium Level 142, Potassium Level 4.3, Chloride Level 100, Carbon Dioxide Level 36H, Anion Gap 6, Blood Urea Nitrogen 48H, Creatinine 11.9H, Estimat Glomerular Filtration Rate 5.3, Glucose Level 72L, Calcium Level 8.5, Phosphorus Level 7.1H , Magnesium Level 2.0, Total Bilirubin 0.8, Aspartate Amino Transf (AST/SGOT) 197H, Alanine Aminotransferase (ALT/SGPT) 400H, Alkaline Phosphatase 104, Total Protein 6.4, Albumin 2.1L, Globulin 4.3, Albumin/Globulin Ratio 0.5L, Hepatitis C Antibody [Pending], Hepatitis C RNA (PCR) IUs/ml [Pending], Hepatitis C RNA ( PCR) log IUs/ml [Pending] Current Medications Medications (Trade) Dose Ordered Sig/Jose Route PRN Reason Start Time Stop Time Status Last Admin Dose Admin Acetaminophen (Tylenol) 650 mg Q4H PRN RECTAL Mild Pain (Pain Scale 1-3) 06/09/17 16:30 07/09/17 16:29 06/09/17 16:37 Alprazolam (Xanax) 2 mg DAILY PRN ORAL Agitation 06/13/17 20:45 06/20/17 20:44 Alprazolam (Xanax) 2 mg Q12HR ORAL 06/13/17 21:00 06/20/17 20:59 06/13/17 21:53 Carisoprodol (Soma) 350 mg BID ORAL 06/04/17 18:00 07/04/17 17:59 06/13/17 18:21 Carisoprodol (Soma) 350 mg Q6H PRN ORAL MUSCLE SPASMS 06/03/17 13:30 07/03/17 13:29 06/11/17 13:34 Carvedilol (Coreg) 25 mg EVERY 12 HOURS ORAL 06/04/17 11:30 07/04/17 11:29 06/13/17 20:27 Chlorhexidine Gluconate (Mireille-Hex 2%) 1 applic DAILY@2000 TOPIC 06/05/17 20:00 07/05/17 19:59 06/13/17 20:26 Clonidine HCl (Catapres Tab) 0.1 mg Q4H PRN ORAL bp over 160 syst 06/03/17 16:30 07/03/17 16:29 Dextrose (Dextrose 50%) STAT PRN IV Hypoglycemia 06/03/17 13:30 07/03/17 13:29 06/09/17 16:05 Docusate Sodium (Colace) 100 mg THREE TIMES A DAY ORAL 06/03/17 18:00 07/03/17 17:59 06/13/17 18:21 Levofloxacin 100 ml @ 100 mls/hr Q48H IVPB 06/15/17 20:00 06/22/17 19:59 Lisinopril (Prinivil) 20 mg BID ORAL 06/04/17 09:00 07/04/17 08:59 06/13/17 18:20 Meropenem 500 mg/ Sodium Chloride 55 ml @ 110 mls/hr Q12HR IV 06/13/17 21:00 06/18/17 20:59 06/13/17 21:52 Morphine Sulfate (Morphine Sulfate) 2 mg Q4H PRN IVP BREAKTHROUGH CHEST PAIN 06/10/17 07:00 06/17/17 06:59 06/14/17 02:21 Nitroglycerin (Ntg) 0.4 mg Q5M PRN SL Prn Chest Pain 06/04/17 09:15 07/04/17 09:14 06/05/17 00:34 Nitroglycerin (Ntg) 1 patch Q24H TDERMAL 06/04/17 11:30 07/04/17 11:29 06/13/17 12:06 Ondansetron HCl (Zofran) 4 mg Q6H PRN IVP Nausea & Vomiting 06/03/17 13:30 07/03/17 13:29 Pantoprazole (Protonix) 40 mg DAILY ORAL 06/03/17 17:00 07/03/17 16:59 06/13/17 09:14 Polyethylene Glycol (Miralax) 17 gm DAILYPRN PRN ORAL Constipation 06/03/17 13:30 07/03/17 13:29 Promethazine HCl/ Codeine (Phenergan with Codeine) 5 ml Q4H PRN ORAL For Cough 06/05/17 08:30 07/05/17 08:29 Sevelamer Carbonate (Renvela) 2,400 mg THREE TIMES A DAY ORAL 06/09/17 13:00 07/09/17 12:59 06/13/17 18:20 Vancomycin HCl (Vanco rx to dose) 1 ea DAILY PRN MISC Per rx protocol 06/04/17 12:45 07/04/17 12:44 MAICO SYED Jun 14, 2017 08:21
[2017-06-14] MEDS: Docusate 100mg cap ORAL SCH ×3 (09:00→18:25)
[2017-06-14] MEDS: Lisinopril 20mg tab ORAL SCH ×2 (09:00→18:25)
[2017-06-14] MEDS: Carvedilol 25mg Tab ORAL SCH ×2 (09:00→22:03)
[2017-06-14 09:47] LABS: ANION GAP 9 mmol/L (5-15); BLOOD UREA NITROGEN 51 mg/dL (7-18); CALCIUM 8.5 MG/DL (8.5-10.1); CARBON DIOXIDE 32 MMOL/L (21-32); CHLORIDE 99 MMOL/L (98-107); CREATININE 12.3 MG/DL (0.55-1.30); POTASSIUM 4.9 MMOL/L (3.5-5.1); SODIUM 140 MMOL/L (136-145)
[2017-06-14] MEDS: ALPRAZolam 0.5mg tab ORAL SCH ×2 (09:53→22:02)
--- NOTE | 2017-06-14 10:40 | General Progress Note ---
Assessment/Plan Assessment/Plan #. Anemia secondary to chronic disease. --> Hemoglobin downtrended past few days. Will need cbc if levels continue to drop --> Continue to closely monitor and trend cbc daily. --> Anemia workup completed and reviewed. Iron 42, TIBC 180, Ferritin 593, B12 876. --> Ferritin is >500, hgb goal is >7 --> Anemia w/u has been reviewed --> ++Occult blood. Consider GI Services and Recs. #. Anemia of kidney disease --> HD as needed per nephrology team --> Monitor closely. #. Generalized body ache related to fluid overload. #. End-stage renal disease, on hemodialysis. #. Tachycardia, to be seen by Cardiology Service, isolated T-wave and ST- segment depression in V6. --> HR has been ~80-90bpm --> S/P Chest CT -- Evidence of worsening CHF/interstitial edema. --> Monitor for improvement. #. Elevated BNP, potentially related to underlying CKD. Subjective Date patient seen: Jun 13, 2017 Constitutional: Denies: no symptoms, chills, diaphoresis, fever, malaise, weakness, other HEENT: Denies: no symptoms, eye pain, blurred vision, tearing, double vision, ear pain, ear discharge, nose pain, nose congestion, throat pain, throat swelling, mouth pain, mouth swelling, other Cardiovascular: Denies: no symptoms, chest pain, edema, irregular heart rate, lightheadedness, palpitations, syncope, other Respiratory: Denies: no symptoms, cough, orthopnea, shortness of breath, SOB with excertion, SOB at rest, sputum, stridor, wheezing, other Gastrointestinal/Abdominal: Denies: no symptoms, abdomen distended, abdominal pain, black stools, tarry stools, blood in stool, constipated, diarrhea, difficulty swallowing, nausea, poor appetite, poor fluid intake, rectal bleeding , vomiting, other Genitourinary: Denies: no symptoms, burning, discharge, frequency, flank pain, hematuria, incontinence, pain, urgency, other Neurologic/Psychiatric: Denies: no symptoms, anxiety, depressed, emotional problems, headache, numbness, paresthesia, pre-existing deficit, seizure, tingling, tremors, weakness, other Hematologic/Lymphatic: Reports: anemia Allergies: Coded Allergies: No Known Allergies (Unverified , 10/24/15) Subjective Pt agitated. Hemoglobin has been downtrending. Objective Last 24 Hour Vital Signs Date Time Temp Pulse Resp B/P (MAP) Pulse Ox O2 Delivery O2 Flow Rate FiO2 06/14/17 09:00 86 138/92 06/14/17 08:40 Non-Rebreather 50 06/14/17 08:00 98.6 86 26 138/92 95 Non-Rebreather 96 98.6 06/14/17 07:45 86 06/14/17 07:40 93 Non-Rebreather 15.0 100 06/14/17 07:40 Non-Rebreather 15.0 100 06/14/17 04:16 97.9 06/14/17 04:00 97.6 85 20 114/76 99 Non-Rebreather 96 97.6 06/14/17 04:00 85 06/14/17 02:21 97.9 06/14/17 00:00 71 06/14/17 00:00 97.9 74 23 114/75 100 Non-Rebreather 96 97.9 06/13/17 22:55 77 32 99 Full Face 80 06/13/17 21:20 101 20 Non-Rebreather 100 06/13/17 20:28 97.9 06/13/17 20:27 80 118/64 06/13/17 20:00 85 06/13/17 20:00 97.5 80 13 118/64 100 Non-Rebreather 100 97.5 06/13/17 19:43 94 Non-Rebreather 15.0 100 06/13/17 19:43 Non-Rebreather 15.0 100 06/13/17 18:20 133/73 06/13/17 16:45 97.9 79 15 133/73 95 Non-Rebreather 100 97.9 06/13/17 16:18 87 06/13/17 12:06 115/76 06/13/17 12:05 98.2 74 19 115/76 99 Bi-pap 80 98.2 06/13/17 12:00 80 06/13/17 11:45 73 06/13/17 11:30 80 Intake and Output 06/13/17 06/14/17 19:00 07:00 Intake Total 446 ml 291 ml Balance 446 ml 291 ml Intake Oral 336 ml 236 ml IV Total 110 ml 55 ml # Bowel Movements 2 Laboratory Tests 06/14/17 03:30: White Blood Count 4.3L, Red Blood Count 2.38L, Hemoglobin 7.2L, Hematocrit 22.9L , Mean Corpuscular Volume 97, Mean Corpuscular Hemoglobin 30.1, Mean Corpuscular Hemoglobin Concent 31.2L, Red Cell Distribution Width 16.6H, Platelet Count 98L, Mean Platelet Volume 7.2, Neutrophils (%) (Auto) , Lymphocytes (%) (Auto) , Monocytes (%) (Auto) , Eosinophils (%) (Auto) , Basophils (%) (Auto) , Differential Total Cells Counted 100, Neutrophils % ( Manual) 62, Lymphocytes % (Manual) 23, Monocytes % (Manual) 15H, Eosinophils % ( Manual) 0, Basophils % (Manual) 0, Band Neutrophils 0, Platelet Estimate DecreasedL, Platelet Morphology Normal, Hypochromasia 1+, Anisocytosis 1+, Sodium Level 142, Potassium Level 4.3, Chloride Level 100, Carbon Dioxide Level 36H, Anion Gap 6, Blood Urea Nitrogen 48H, Creatinine 11.9H, Estimat Glomerular Filtration Rate 5.3, Glucose Level 72L, Calcium Level 8.5, Phosphorus Level 7.1H , Magnesium Level 2.0, Total Bilirubin 0.8, Aspartate Amino Transf (AST/SGOT) 197H, Alanine Aminotransferase (ALT/SGPT) 400H, Alkaline Phosphatase 104, Total Protein 6.4, Albumin 2.1L, Globulin 4.3, Albumin/Globulin Ratio 0.5L, Hepatitis C Antibody [Pending], Hepatitis C RNA (PCR) IUs/ml [Pending], Hepatitis C RNA ( PCR) log IUs/ml [Pending] 06/14/17 09:00: Sodium Level 140, Potassium Level 4.9, Chloride Level 99, Carbon Dioxide Level 32, Anion Gap 9, Blood Urea Nitrogen 51H, Creatinine 12.3H, Estimat Glomerular Filtration Rate 5.1, Glucose Level 76, Calcium Level 8.5 Height (Feet): 5 Height (Inches): 7.00 Weight (Pounds): 219 General Appearance: confused Respiratory/Chest: decreased breath sounds Abdomen: non tender, soft Edema: trace edema Skin: warm/dry Irving Parker Jun 14, 2017 10:40
[2017-06-14 12:00] VITALS: BP 127/69
[2017-06-14] MEDS: Meropenem 500 MG in NS 55 ML IV SCH (12:20)
--- NOTE | 2017-06-14 13:20 | Consultation ---
History of Present Illness General Date patient seen: Jun 14, 2017 Chief Complaint: Chest Pain Reason for Consultation: abdominal pain Present Illness HPI 57 year old male with multiple medical comorbidities as noted below who has been admitted and under medical care. during admission c/o abdominal pain. ultrasound performed and identified thickening of gallbladder and labs with elevated lft's. surgery called to evaluate for possible cholecystitis. when patient seen at bedside he is awake but a very poor historian. cannot recall why he is in the hospital and his medical history. when asked about pain states that he has abdominal pain but cannot recall for how long he has had it. when asked about location of pain he points to his general abdomen. denies n/ v/f/c. Allergies: Coded Allergies: No Known Allergies (Unverified , 10/24/15) Medication History Scheduled Alprazolam* (Xanax*), 2 MG ORAL THREE TIMES A DAY, (Reported) Amlodipine Besylate* (Amlodipine Besylate*), 10 MG ORAL DAILY, (Reported) Aripiprazole* (Abilify*), 15 MG ORAL DAILY, (Reported) Aspirin* (Aspir 81*), 81 MG ORAL DAILY, (Reported) Atorvastatin (Lipitor), 80 MG ORAL DAILY, (Reported) Bupropion Hcl* (Bupropion Hcl*), 100 MG PO BID, (Reported) Carisoprodol* (Carisoprodol*), 350 MG ORAL Q6H, (Reported) Carvedilol* (Carvedilol*), 25 MG ORAL EVERY 12 HOURS, (Reported) Donepezil Hcl (Aricept), 5 MG ORAL DAILY, (Reported) Ferrous Sulfate, Dried (Ferrous Sulfate), 325 GM MC EVERY 8 HOURS, (Reported) Fluticasone/Salmeterol (Advair 250-50 Diskus), 1 PUFF INH EVERY 12 HOURS, ( Reported) Folic Acid* (Folic Acid*), 1 MG ORAL DAILY, (Reported) Hydrocodone Bit/Acetaminophen 10-325* (Hydrocodon-Acetaminophn 10-325*), 1 TAB ORAL Q6H, (Reported) Levofloxacin* (Levaquin*), 250 MG ORAL QOD, (Reported) Lisinopril (Lisinopril*), 20 MG ORAL DAILY, (Reported) Methylprednisolone* (Medrol*), 4 MG ORAL DAILY, (Reported) Multivitamins* (Multivitamins*), 1 TAB ORAL DAILY, (Reported) Nicotine (Nicotine Patch), 1 EA TD DAILY, (Reported) Nitroglycerin (Nitroglycerin), 0.4 MG SL NEEDED Omeprazole (Omeprazole), 20 MG ORAL DAILY, (Reported) Polyethylene Glycol 3350* (Miralax*), 17 GM ORAL DAILY, (Reported) Quetiapine Fumarate (Quetiapine Fumarate), 100 MG ORAL DAILY, (Reported) Sevelamer HCl (Renagel), 800 MG ORAL THREE TIMES A DAY, (Reported) Simvastatin (Zocor), 20 MG ORAL BEDTIME, (Reported) Tiotropium Morse* (Spiriva*), 1 PUFF INH DAILY, (Reported) Valsartan (Diovan), 160 MG ORAL DAILY, (Reported) Warfarin Sod* (Warfarin Sod*), 5 MG ORAL DAILY, (Reported) Scheduled PRN Albuterol Sulfate* (Albuterol Sulfate Hhn*), 3 ML INH Q4H PRN for Shortness of Breath, (Reported) Albuterol Sulfate* (Proair Hfa*), 1 PUFF INH Q6H PRN for Shortness of breath, ( Reported) Diphenhydramine Hcl* (Benadryl*), 25 MG ORAL Q6H PRN for Itching, (Reported) Hydrocodone Bit/Acetaminophen 10-325* ([place] 10-325*), 1 TAB ORAL Q6H PRN for For Pain Ondansetron* (Zofran*), 4 MG ORAL Q6H PRN for Nausea & Vomiting, (Reported) Miscellaneous Medications Isosorbide Mononitrate (Isosorbide Mononitrate Er), 30 MG PO, (Reported) Loratadine (Loratadine), 10 MG PO, (Reported) Patient History History Provided By: Patient, Medical Record, PMD Healthcare decision maker SELF Resuscitation status Advanced Directive on File Past Medical/Surgical History Past Medical/Surgical History: (1) Hyperkalemia, diminished renal excretion (2) Diarrhea (3) LFTs abnormal (4) Constipation (5) Intractable abdominal pain (6) VRE (vancomycin resistant enterococcus) culture positive (7) VRE re (8) Defibrillator discharge (9) Chest pain (10) Purulent bronchitis (11) CHF (congestive heart failure) (12) Respiratory distress (13) COPD (chronic obstructive pulmonary disease) (14) Hyperkalemia (15) Shortness of breath (16) Hemoptysis (17) Pleuritic chest pain (18) Respiratory failure (19) Pneumonia (20) HTN (hypertension) (21) Elevated troponin (22) ESRD (end stage renal disease) on dialysis (23) Anemia Review of Systems All Other Systems: negative except mentioned in HPI ROS Narrative cannot obtain true ROS given patients medical status. Physical Exam General Appearance: no apparent distress, alert HEENT: normocephalic, atraumatic, anicteric Neck: normal inspection Respiratory/Chest: no respiratory distress, no accessory muscle use, decreased breath sounds Cardiovascular/Chest: normal peripheral pulses, normal rate Abdomen: normal bowel sounds, soft, guarding, tender, other - obese with thickening around right side of pannus. pain superficial and edema around right pannus and not on left. Extremities: normal range of motion, normal inspection Skin Exam: normal pigmentation, warm/dry Neurologic: alert, responsive Last 24 Hour Vital Signs Date Time Temp Pulse Resp B/P (MAP) Pulse Ox O2 Delivery O2 Flow Rate FiO2 06/14/17 12:00 99.2 89 22 127/69 97 Non-Rebreather 96 99.2 06/14/17 11:47 Venturi Mask 100 06/14/17 11:46 86 06/14/17 09:00 98.6 06/14/17 09:00 86 138/92 06/14/17 09:00 138/92 06/14/17 08:40 Non-Rebreather 50 06/14/17 08:00 98.6 86 26 138/92 95 Non-Rebreather 96 98.6 06/14/17 07:45 86 06/14/17 07:40 93 Non-Rebreather 15.0 100 06/14/17 07:40 Non-Rebreather 15.0 100 06/14/17 04:00 97.6 85 20 114/76 99 Non-Rebreather 96 97.6 06/14/17 04:00 85 06/14/17 02:21 97.9 06/14/17 00:00 71 06/14/17 00:00 97.9 74 23 114/75 100 Non-Rebreather 96 97.9 06/13/17 22:55 77 32 99 Full Face 80 06/13/17 21:20 101 20 Non-Rebreather 100 06/13/17 20:28 97.9 06/13/17 20:27 80 118/64 06/13/17 20:00 85 06/13/17 20:00 97.5 80 13 118/64 100 Non-Rebreather 100 97.5 06/13/17 19:43 94 Non-Rebreather 15.0 100 06/13/17 19:43 Non-Rebreather 15.0 100 06/13/17 18:20 133/73 06/13/17 16:45 97.9 79 15 133/73 95 Non-Rebreather 100 97.9 06/13/17 16:18 87 Intake and Output 06/13/17 06/14/17 19:00 07:00 Intake Total 446 ml 291 ml Balance 446 ml 291 ml Intake Oral 336 ml 236 ml IV Total 110 ml 55 ml # Bowel Movements 2 Laboratory Tests Test 06/14/17 03:30 06/14/17 09:00 White Blood Count 4.3 K/UL (4.8-10.8) L Red Blood Count 2.38 M/UL (4.70-6.10) L Hemoglobin 7.2 G/DL (14.2-18.0) L Hematocrit 22.9 % (42.0-52.0) L Mean Corpuscular Volume 97 FL (80-99) Mean Corpuscular Hemoglobin 30.1 PG (27.0-31.0) Mean Corpuscular Hemoglobin Concent 31.2 G/DL (32.0-36.0) L Red Cell Distribution Width 16.6 % (11.6-14.8) H Platelet Count 98 K/UL (150-450) L Mean Platelet Volume 7.2 FL (6.5-10.1) Neutrophils (%) (Auto) % (45.0-75.0) Lymphocytes (%) (Auto) % (20.0-45.0) Monocytes (%) (Auto) % (1.0-10.0) Eosinophils (%) (Auto) % (0.0-3.0) Basophils (%) (Auto) % (0.0-2.0) Differential Total Cells Counted 100 Neutrophils % (Manual) 62 % (45-75) Lymphocytes % (Manual) 23 % (20-45) Monocytes % (Manual) 15 % (1-10) H Eosinophils % (Manual) 0 % (0-3) Basophils % (Manual) 0 % (0-2) Band Neutrophils 0 % (0-8) Platelet Estimate Decreased L Platelet Morphology Normal Hypochromasia 1+ Anisocytosis 1+ Sodium Level 142 MMOL/L (136-145) 140 MMOL/L (136-145) Potassium Level 4.3 MMOL/L (3.5-5.1) 4.9 MMOL/L (3.5-5.1) Chloride Level 100 MMOL/L (98-107) 99 MMOL/L (98-107) Carbon Dioxide Level 36 MMOL/L (21-32) H 32 MMOL/L (21-32) Anion Gap 6 mmol/L (5-15) 9 mmol/L (5-15) Blood Urea Nitrogen 48 mg/dL (7-18) H 51 mg/dL (7-18) H Creatinine 11.9 MG/DL (0.55-1.30) H 12.3 MG/DL (0.55-1.30) H Estimat Glomerular Filtration Rate 5.3 mL/min (>60) 5.1 mL/min (>60) Glucose Level 72 MG/DL (74-106) L 76 MG/DL (74-106) Calcium Level 8.5 MG/DL (8.5-10.1) 8.5 MG/DL (8.5-10.1) Phosphorus Level 7.1 MG/DL (2.5-4.9) H Magnesium Level 2.0 MG/DL (1.8-2.4) Total Bilirubin 0.8 MG/DL (0.2-1.0) Aspartate Amino Transf (AST/SGOT) 197 U/L (15-37) H Alanine Aminotransferase (ALT/SGPT) 400 U/L (12-78) H Alkaline Phosphatase 104 U/L (46-116) Total Protein 6.4 G/DL (6.4-8.2) Albumin 2.1 G/DL (3.4-5.0) L Globulin 4.3 g/dL Albumin/Globulin Ratio 0.5 (1.0-2.7) L Hepatitis C Antibody Pending Hepatitis C RNA (PCR) IUs/ml Pending Hepatitis C RNA (PCR) log IUs/ml Pending Height (Feet): 5 Height (Inches): 7.00 Weight (Pounds): 219 Medications Current Medications Medications (Trade) Dose Ordered Sig/Jose Route PRN Reason Start Time Stop Time Status Last Admin Dose Admin Acetaminophen (Tylenol) 650 mg Q4H PRN RECTAL Mild Pain (Pain Scale 1-3) 06/09/17 16:30 07/09/17 16:29 06/09/17 16:37 Alprazolam (Xanax) 2 mg DAILY PRN ORAL Agitation 06/13/17 20:45 06/20/17 20:44 Alprazolam (Xanax) 2 mg Q12HR ORAL 06/13/17 21:00 06/20/17 20:59 06/14/17 09:53 Carisoprodol (Soma) 350 mg BID ORAL 06/04/17 18:00 07/04/17 17:59 06/13/17 18:21 Carisoprodol (Soma) 350 mg Q6H PRN ORAL MUSCLE SPASMS 06/03/17 13:30 07/03/17 13:29 06/11/17 13:34 Carvedilol (Coreg) 25 mg EVERY 12 HOURS ORAL 06/04/17 11:30 07/04/17 11:29 06/13/17 20:27 Chlorhexidine Gluconate (Mireille-Hex 2%) 1 applic DAILY@2000 TOPIC 06/05/17 20:00 07/05/17 19:59 06/13/17 20:26 Clonidine HCl (Catapres Tab) 0.1 mg Q4H PRN ORAL bp over 160 syst 06/03/17 16:30 07/03/17 16:29 Dextrose 1,000 ml @ 50 mls/hr Q20H IV 06/14/17 11:45 07/14/17 11:44 Dextrose (Dextrose 50%) STAT PRN IV Hypoglycemia 06/03/17 13:30 07/03/17 13:29 06/09/17 16:05 Docusate Sodium (Colace) 100 mg THREE TIMES A DAY ORAL 06/03/17 18:00 07/03/17 17:59 06/13/17 18:21 Levofloxacin 100 ml @ 100 mls/hr Q48H IVPB 06/15/17 20:00 06/22/17 19:59 Lisinopril (Prinivil) 20 mg BID ORAL 06/04/17 09:00 07/04/17 08:59 06/13/17 18:20 Meropenem 500 mg/ Sodium Chloride 55 ml @ 110 mls/hr Q12H IV 06/15/17 00:00 06/18/17 20:59 Morphine Sulfate (Morphine Sulfate) 2 mg Q4H PRN IVP BREAKTHROUGH CHEST PAIN 06/10/17 07:00 06/17/17 06:59 06/14/17 08:30 Nitroglycerin (Ntg) 0.4 mg Q5M PRN SL Prn Chest Pain 06/04/17 09:15 07/04/17 09:14 06/05/17 00:34 Nitroglycerin (Ntg) 1 patch Q24H TDERMAL 06/04/17 11:30 07/04/17 11:29 06/13/17 12:06 Ondansetron HCl (Zofran) 4 mg Q6H PRN IVP Nausea & Vomiting 06/03/17 13:30 07/03/17 13:29 Pantoprazole (Protonix) 40 mg DAILY ORAL 06/03/17 17:00 07/03/17 16:59 06/13/17 09:14 Polyethylene Glycol (Miralax) 17 gm DAILYPRN PRN ORAL Constipation 06/03/17 13:30 07/03/17 13:29 Promethazine HCl/ Codeine (Phenergan with Codeine) 5 ml Q4H PRN ORAL For Cough 06/05/17 08:30 07/05/17 08:29 Sevelamer Carbonate (Renvela) 2,400 mg THREE TIMES A DAY ORAL 06/09/17 13:00 07/09/17 12:59 06/13/17 18:20 Vancomycin HCl (Vanco rx to dose) 1 ea DAILY PRN MISC Per rx protocol 06/04/17 12:45 07/04/17 12:44 Assessment/Plan Problem List: (1) Intractable abdominal pain Assessment & Plan: 57M with abdominal pain. elevated lft's and ultrasound reviewed. has liver cirrhosis, ascites, and gallbladder findings on ultrasound likely secondary to intrinsic liver disease. on exam his abdominal pain is fairly superficial and around this right abd upper and lower and right flank. he has edema and thickening of the right subcutaneous tissues as compared to the left. possible abscess vs cellulitis? -obtain CT A/P to evaluate for intraabdominal process and subcutaneous cellulitis vs abscess. -cont abx ICD Codes: R10.9 - Unspecified abdominal pain SNOMED: [id number], [id number] Status: stable Ever Parham Jun 14, 2017 13:20
[2017-06-14] MEDS: Nitroglycerin Patch 0.4mg TDERMAL SCH (13:57)
[2017-06-14 15:02] LABS: HEMATOCRIT 23.9 % (42.0-52.0); HEMOGLOBIN 7.4 G/DL (14.2-18.0); MEAN CORPUSCULAR VOLUME 96 FL (80-99); PLATELET COUNT 105 K/UL (150-450); RED BLOOD COUNT 2.48 M/UL (4.70-6.10); RED CELL DISTRIBUTION WIDTH 16.9 % (11.6-14.8); WHITE BLOOD COUNT 4.5 K/UL (4.8-10.8)
--- NOTE | 2017-06-14 15:41 | Cardiology Progress Note ---
Assessment/Plan Problem List: (1) CHF (congestive heart failure) (2) COPD (chronic obstructive pulmonary disease) (3) HTN (hypertension) (4) Elevated troponin (5) Pneumonia (6) Respiratory failure Status Narrative Pt w/ cavitary lesion R UL - r/o TB. Cardiac status stable - mild LV systolic dysfunction by echo, ef 40s Pt s/ p ICD - ? indication. Mild troponin elevation on adm. ESRD Assessment/Plan Continue treatment for pneumonia and w/u for possible TB per pulmonary Continue coreg, lisinopril for cardiomyopathy. Diuresis prn. Mild troponin elevation - possibly due to RF. Normal WM by ECHO and pt without anginal sx or EKG changes. Would not pursue ischemia w/u Subjective ROS Limited/Unobtainable: No Subjective Cardiology for Dr. Ely Pt alert, on NRB mask Objective Last 24 Hour Vital Signs Date Time Temp Pulse Resp B/P (MAP) Pulse Ox O2 Delivery O2 Flow Rate FiO2 06/14/17 13:57 127/69 06/14/17 12:00 99.2 89 22 127/69 97 Non-Rebreather 96 99.2 06/14/17 11:47 Venturi Mask 100 06/14/17 11:46 86 06/14/17 09:00 98.6 06/14/17 09:00 86 138/92 06/14/17 09:00 138/92 06/14/17 08:40 Non-Rebreather 50 06/14/17 08:00 98.6 86 26 138/92 95 Non-Rebreather 96 98.6 06/14/17 07:45 86 06/14/17 07:40 93 Non-Rebreather 15.0 100 06/14/17 07:40 Non-Rebreather 15.0 100 06/14/17 04:00 97.6 85 20 114/76 99 Non-Rebreather 96 97.6 06/14/17 04:00 85 06/14/17 02:21 97.9 06/14/17 00:00 71 06/14/17 00:00 97.9 74 23 114/75 100 Non-Rebreather 96 97.9 06/13/17 22:55 77 32 99 Full Face 80 06/13/17 21:20 101 20 Non-Rebreather 100 06/13/17 20:28 97.9 06/13/17 20:27 80 118/64 06/13/17 20:00 85 06/13/17 20:00 97.5 80 13 118/64 100 Non-Rebreather 100 97.5 06/13/17 19:43 94 Non-Rebreather 15.0 100 06/13/17 19:43 Non-Rebreather 15.0 100 06/13/17 18:20 133/73 06/13/17 16:45 97.9 79 15 133/73 95 Non-Rebreather 100 97.9 06/13/17 16:18 87 General Appearance: WD/WN, mild distress EENT: PERRL/EOMI Neck: supple, no JVD Rhythm: NSR Cardiovascular: normal rate, regular rhythm, no gallop/murmur Respiratory/Chest: other - coarse BS bilat, tachypneic Abdomen: non tender, soft Extremities: no swelling Intake and Output 06/13/17 06/14/17 19:00 07:00 Intake Total 446 ml 291 ml Balance 446 ml 291 ml Intake Oral 336 ml 236 ml IV Total 110 ml 55 ml # Bowel Movements 2 Laboratory Tests Test 06/14/17 03:30 06/14/17 09:00 06/14/17 14:41 White Blood Count 4.3 K/UL (4.8-10.8) L 4.5 K/UL (4.8-10.8) L Red Blood Count 2.38 M/UL (4.70-6.10) L 2.48 M/UL (4.70-6.10) L Hemoglobin 7.2 G/DL (14.2-18.0) L 7.4 G/DL (14.2-18.0) L Hematocrit 22.9 % (42.0-52.0) L 23.9 % (42.0-52.0) L Mean Corpuscular Volume 97 FL (80-99) 96 FL (80-99) Mean Corpuscular Hemoglobin 30.1 PG (27.0-31.0) 29.9 PG (27.0-31.0) Mean Corpuscular Hemoglobin Concent 31.2 G/DL (32.0-36.0) L 31.0 G/DL (32.0-36.0) L Red Cell Distribution Width 16.6 % (11.6-14.8) H 16.9 % (11.6-14.8) H Platelet Count 98 K/UL (150-450) L 105 K/UL (150-450) L Mean Platelet Volume 7.2 FL (6.5-10.1) 6.5 FL (6.5-10.1) Neutrophils (%) (Auto) % (45.0-75.0) % (45.0-75.0) Lymphocytes (%) (Auto) % (20.0-45.0) % (20.0-45.0) Monocytes (%) (Auto) % (1.0-10.0) % (1.0-10.0) Eosinophils (%) (Auto) % (0.0-3.0) % (0.0-3.0) Basophils (%) (Auto) % (0.0-2.0) % (0.0-2.0) Differential Total Cells Counted 100 Neutrophils % (Manual) 62 % (45-75) Pending Lymphocytes % (Manual) 23 % (20-45) Pending Monocytes % (Manual) 15 % (1-10) H Eosinophils % (Manual) 0 % (0-3) Basophils % (Manual) 0 % (0-2) Band Neutrophils 0 % (0-8) Platelet Estimate Decreased L Pending Platelet Morphology Normal Pending Hypochromasia 1+ Anisocytosis 1+ Sodium Level 142 MMOL/L (136-145) 140 MMOL/L (136-145) Potassium Level 4.3 MMOL/L (3.5-5.1) 4.9 MMOL/L (3.5-5.1) Chloride Level 100 MMOL/L (98-107) 99 MMOL/L (98-107) Carbon Dioxide Level 36 MMOL/L (21-32) H 32 MMOL/L (21-32) Anion Gap 6 mmol/L (5-15) 9 mmol/L (5-15) Blood Urea Nitrogen 48 mg/dL (7-18) H 51 mg/dL (7-18) H Creatinine 11.9 MG/DL (0.55-1.30) H 12.3 MG/DL (0.55-1.30) H Estimat Glomerular Filtration Rate 5.3 mL/min (>60) 5.1 mL/min (>60) Glucose Level 72 MG/DL (74-106) L 76 MG/DL (74-106) Calcium Level 8.5 MG/DL (8.5-10.1) 8.5 MG/DL (8.5-10.1) Phosphorus Level 7.1 MG/DL (2.5-4.9) H Magnesium Level 2.0 MG/DL (1.8-2.4) Total Bilirubin 0.8 MG/DL (0.2-1.0) Aspartate Amino Transf (AST/SGOT) 197 U/L (15-37) H Alanine Aminotransferase (ALT/SGPT) 400 U/L (12-78) H Alkaline Phosphatase 104 U/L (46-116) Total Protein 6.4 G/DL (6.4-8.2) Albumin 2.1 G/DL (3.4-5.0) L Globulin 4.3 g/dL Albumin/Globulin Ratio 0.5 (1.0-2.7) L Hepatitis C Antibody Pending Hepatitis C RNA (PCR) IUs/ml Pending Hepatitis C RNA (PCR) log IUs/ml Pending QUETA CONWAY Jun 14, 2017 15:41
[2017-06-14 15:58] VITALS: BP 133/76
--- NOTE | 2017-06-14 16:16 | Infectious Diseases Prog Note ---
Assessment/Plan Assessment/Plan ASSESSMENT: The patient is a 57-year-old male with, Low-grade fever, SP Status post leukocytosis. Influenza A and B screen negative Transaminitis , probably 2/2 Hep C US Abd : Cholelithiasis. There is gallbladder wall thickening, likely related to hemodynamic abnormalities Splenomegaly. Evidence of hepatic cirrhosis Pneumonia with possible cavitary lesion/hemoptysis. SCx: Neg ( m/l necrotizing Pneum, less likely fungal and doubt TB ) Rsp status improved up to yesterday but on 06/[address] his condition worsen T-SPOT :Neg AFB x 3 : Neg MTB PCR x2 : neg cryptococcus Ag : neg CT: 7.8 x 5.3 x 6.6 cm dense opacity in the posterior inferior right upper lobe with a central cavitation. Chest x-ray : right mid lung infiltrate, possible cavitation Rule out tuberculosis, fungal infection, or necrotizing pneumonia. CRP 14 Influenza negative HIV : NEG Hep Panel B neg , C Ab : +ve leukopenia and TCP 2/2 splenomegaly Seizure disorder History of CVA History of pacemaker placement Hyperlipidemia Hypertension COPD/asthma End-stage renal disease, on hemodialysis Diabetes Anxiety Anemia Echo, ejection fraction 45% to 50%. PLAN: Patient cont vancomycin day # 11 , cont Merrem d# 2 , duration unknown at this time, ( depending on repeat CT result ) ,add AmphoB ( possible Aspergillosis 0 for now ( can not verify improvement/ or worsening wo repeat CT ) add Ethambutol , amikacin d# 1 and Levaquin d# 2 ( TB Control recs to start TB Rx, doubt that this is needed at his time pt has pt improved initially, wups so far neg for TB, has increased of LFT , ) SP 3/0 SP Zosyn d# 10 SP 3/4 SP Zithromax D# 6 sputum culture (, fungal, and AFB x3). Coccidioidal . Galactomannan and Fungitell. Airborne isolation for now may need BAL , will defer this to Pul team CT of Chest : P ( pt not stable ) Hep C PCR may need JIMY ro SBE w emboli to lung ( hx of AICD ) DW Pul and pharmD Subjective Constitutional: Denies: no symptoms, fever, chills, fatigue, anorexia, drenching sweats, other Allergies: Coded Allergies: No Known Allergies (Unverified , 10/24/15) Subjective on NRB FM afebrile Objective Vital Signs Last 24 Hour Vital Signs Date Time Temp Pulse Resp B/P (MAP) Pulse Ox O2 Delivery O2 Flow Rate FiO2 06/14/17 15:58 98.2 82 24 133/76 99 Non-Rebreather 99 98.2 06/14/17 13:57 127/69 06/14/17 12:00 99.2 89 22 127/69 97 Non-Rebreather 96 99.2 06/14/17 11:47 Venturi Mask 100 06/14/17 11:46 86 06/14/17 09:00 98.6 06/14/17 09:00 86 138/92 06/14/17 09:00 138/92 06/14/17 08:40 Non-Rebreather 50 06/14/17 08:00 98.6 86 26 138/92 95 Non-Rebreather 96 98.6 06/14/17 07:45 86 06/14/17 07:40 93 Non-Rebreather 15.0 100 06/14/17 07:40 Non-Rebreather 15.0 100 06/14/17 04:00 97.6 85 20 114/76 99 Non-Rebreather 96 97.6 06/14/17 04:00 85 06/14/17 02:21 97.9 06/14/17 00:00 71 06/14/17 00:00 97.9 74 23 114/75 100 Non-Rebreather 96 97.9 06/13/17 22:55 77 32 99 Full Face 80 06/13/17 21:20 101 20 Non-Rebreather 100 06/13/17 20:28 97.9 06/13/17 20:27 80 118/64 06/13/17 20:00 85 06/13/17 20:00 97.5 80 13 118/64 100 Non-Rebreather 100 97.5 06/13/17 19:43 94 Non-Rebreather 15.0 100 06/13/17 19:43 Non-Rebreather 15.0 100 06/13/17 18:20 133/73 06/13/17 16:45 97.9 79 15 133/73 95 Non-Rebreather 100 97.9 06/13/17 16:18 87 Height (Feet): 5 Height (Inches): 7.00 Weight (Pounds): 219 HEENT: atraumatic Respiratory/Chest: accessory muscle use Cardiovascular: regular rhythm Abdomen: no mass Laboratory Tests Test 06/14/17 03:30 06/14/17 09:00 06/14/17 14:41 White Blood Count 4.3 K/UL (4.8-10.8) L 4.5 K/UL (4.8-10.8) L Red Blood Count 2.38 M/UL (4.70-6.10) L 2.48 M/UL (4.70-6.10) L Hemoglobin 7.2 G/DL (14.2-18.0) L 7.4 G/DL (14.2-18.0) L Hematocrit 22.9 % (42.0-52.0) L 23.9 % (42.0-52.0) L Mean Corpuscular Volume 97 FL (80-99) 96 FL (80-99) Mean Corpuscular Hemoglobin 30.1 PG (27.0-31.0) 29.9 PG (27.0-31.0) Mean Corpuscular Hemoglobin Concent 31.2 G/DL (32.0-36.0) L 31.0 G/DL (32.0-36.0) L Red Cell Distribution Width 16.6 % (11.6-14.8) H 16.9 % (11.6-14.8) H Platelet Count 98 K/UL (150-450) L 105 K/UL (150-450) L Mean Platelet Volume 7.2 FL (6.5-10.1) 6.5 FL (6.5-10.1) Neutrophils (%) (Auto) % (45.0-75.0) % (45.0-75.0) Lymphocytes (%) (Auto) % (20.0-45.0) % (20.0-45.0) Monocytes (%) (Auto) % (1.0-10.0) % (1.0-10.0) Eosinophils (%) (Auto) % (0.0-3.0) % (0.0-3.0) Basophils (%) (Auto) % (0.0-2.0) % (0.0-2.0) Differential Total Cells Counted 100 100 Neutrophils % (Manual) 62 % (45-75) 68 % (45-75) Lymphocytes % (Manual) 23 % (20-45) 16 % (20-45) L Monocytes % (Manual) 15 % (1-10) H 12 % (1-10) H Eosinophils % (Manual) 0 % (0-3) 1 % (0-3) Basophils % (Manual) 0 % (0-2) 0 % (0-2) Band Neutrophils 0 % (0-8) 3 % (0-8) Platelet Estimate Decreased L Decreased L Platelet Morphology Normal Normal Hypochromasia 1+ 2+ Anisocytosis 1+ 2+ Sodium Level 142 MMOL/L (136-145) 140 MMOL/L (136-145) Potassium Level 4.3 MMOL/L (3.5-5.1) 4.9 MMOL/L (3.5-5.1) Chloride Level 100 MMOL/L (98-107) 99 MMOL/L (98-107) Carbon Dioxide Level 36 MMOL/L (21-32) H 32 MMOL/L (21-32) Anion Gap 6 mmol/L (5-15) 9 mmol/L (5-15) Blood Urea Nitrogen 48 mg/dL (7-18) H 51 mg/dL (7-18) H Creatinine 11.9 MG/DL (0.55-1.30) H 12.3 MG/DL (0.55-1.30) H Estimat Glomerular Filtration Rate 5.3 mL/min (>60) 5.1 mL/min (>60) Glucose Level 72 MG/DL (74-106) L 76 MG/DL (74-106) Calcium Level 8.5 MG/DL (8.5-10.1) 8.5 MG/DL (8.5-10.1) Phosphorus Level 7.1 MG/DL (2.5-4.9) H Magnesium Level 2.0 MG/DL (1.8-2.4) Total Bilirubin 0.8 MG/DL (0.2-1.0) Aspartate Amino Transf (AST/SGOT) 197 U/L (15-37) H Alanine Aminotransferase (ALT/SGPT) 400 U/L (12-78) H Alkaline Phosphatase 104 U/L (46-116) Total Protein 6.4 G/DL (6.4-8.2) Albumin 2.1 G/DL (3.4-5.0) L Globulin 4.3 g/dL Albumin/Globulin Ratio 0.5 (1.0-2.7) L Hepatitis C Antibody Pending Hepatitis C RNA (PCR) IUs/ml Pending Hepatitis C RNA (PCR) log IUs/ml Pending Current Medications Medications (Trade) Dose Ordered Sig/Jose Route PRN Reason Start Time Stop Time Status Last Admin Dose Admin Acetaminophen (Tylenol) 650 mg Q4H PRN RECTAL Mild Pain (Pain Scale 1-3) 06/09/17 16:30 07/09/17 16:29 06/09/17 16:37 Alprazolam (Xanax) 2 mg DAILY PRN ORAL Agitation 06/13/17 20:45 06/20/17 20:44 Alprazolam (Xanax) 2 mg Q12HR ORAL 06/13/17 21:00 06/20/17 20:59 06/14/17 09:53 Carisoprodol (Soma) 350 mg BID ORAL 06/04/17 18:00 07/04/17 17:59 06/13/17 18:21 Carisoprodol (Soma) 350 mg Q6H PRN ORAL MUSCLE SPASMS 06/03/17 13:30 07/03/17 13:29 06/11/17 13:34 Carvedilol (Coreg) 25 mg EVERY 12 HOURS ORAL 06/04/17 11:30 07/04/17 11:29 06/13/17 20:27 Chlorhexidine Gluconate (Mireille-Hex 2%) 1 applic DAILY@2000 TOPIC 06/05/17 20:00 07/05/17 19:59 06/13/17 20:26 Clonidine HCl (Catapres Tab) 0.1 mg Q4H PRN ORAL bp over 160 syst 06/03/17 16:30 07/03/17 16:29 Dextrose 1,000 ml @ 50 mls/hr Q20H IV 06/14/17 11:45 07/14/17 11:44 06/14/17 14:00 Dextrose (Dextrose 50%) STAT PRN IV Hypoglycemia 06/03/17 13:30 07/03/17 13:29 06/09/17 16:05 Docusate Sodium (Colace) 100 mg THREE TIMES A DAY ORAL 06/03/17 18:00 07/03/17 17:59 06/13/17 18:21 Levofloxacin 100 ml @ 100 mls/hr Q48H IVPB 06/15/17 20:00 06/22/17 19:59 Lisinopril (Prinivil) 20 mg BID ORAL 06/04/17 09:00 07/04/17 08:59 06/13/17 18:20 Meropenem 500 mg/ Sodium Chloride 55 ml @ 110 mls/hr Q12H IV 06/15/17 00:00 06/18/17 20:59 Morphine Sulfate (Morphine Sulfate) 2 mg Q4H PRN IVP BREAKTHROUGH CHEST PAIN 06/10/17 07:00 06/17/17 06:59 06/14/17 08:30 Nitroglycerin (Ntg) 0.4 mg Q5M PRN SL Prn Chest Pain 06/04/17 09:15 07/04/17 09:14 06/05/17 00:34 Nitroglycerin (Ntg) 1 patch Q24H TDERMAL 06/04/17 11:30 07/04/17 11:29 06/14/17 13:57 Ondansetron HCl (Zofran) 4 mg Q6H PRN IVP Nausea & Vomiting 06/03/17 13:30 07/03/17 13:29 Pantoprazole (Protonix) 40 mg DAILY ORAL 06/03/17 17:00 07/03/17 16:59 06/13/17 09:14 Polyethylene Glycol (Miralax) 17 gm DAILYPRN PRN ORAL Constipation 06/03/17 13:30 07/03/17 13:29 Promethazine HCl/ Codeine (Phenergan with Codeine) 5 ml Q4H PRN ORAL For Cough 06/05/17 08:30 07/05/17 08:29 Sevelamer Carbonate (Renvela) 2,400 mg THREE TIMES A DAY ORAL 06/09/17 13:00 07/09/17 12:59 06/13/17 18:20 Vancomycin HCl (Vanco rx to dose) 1 ea DAILY PRN MISC Per rx protocol 06/04/17 12:45 07/04/17 12:44 Vancomycin HCl 1 gm/Dextrose 275 ml @ 183.708 mls/hr ONCE ONCE IVPB 06/14/17 21:00 06/14/17 22:29 PREET GUAJARDO M.D. Jun 14, 2017 16:16
--- NOTE | 2017-06-14 16:38 | Internal Med Progress Note ---
Subjective Date of Service: Jun 14, 2017 Physician Name Pires,Zoey Attending Physician Chaitanya Weinstein MD Current Medications Medications (Trade) Dose Ordered Sig/Jose Route PRN Reason Start Time Stop Time Status Last Admin Dose Admin Acetaminophen (Tylenol) 650 mg Q4H PRN RECTAL Mild Pain (Pain Scale 1-3) 06/09/17 16:30 07/09/17 16:29 06/09/17 16:37 Alprazolam (Xanax) 2 mg DAILY PRN ORAL Agitation 06/13/17 20:45 06/20/17 20:44 Alprazolam (Xanax) 2 mg Q12HR ORAL 06/13/17 21:00 06/20/17 20:59 06/14/17 09:53 Carisoprodol (Soma) 350 mg BID ORAL 06/04/17 18:00 07/04/17 17:59 06/13/17 18:21 Carisoprodol (Soma) 350 mg Q6H PRN ORAL MUSCLE SPASMS 06/03/17 13:30 07/03/17 13:29 06/11/17 13:34 Carvedilol (Coreg) 25 mg EVERY 12 HOURS ORAL 06/04/17 11:30 07/04/17 11:29 06/13/17 20:27 Chlorhexidine Gluconate (Mireille-Hex 2%) 1 applic DAILY@2000 TOPIC 06/05/17 20:00 07/05/17 19:59 06/13/17 20:26 Clonidine HCl (Catapres Tab) 0.1 mg Q4H PRN ORAL bp over 160 syst 06/03/17 16:30 07/03/17 16:29 Dextrose 1,000 ml @ 50 mls/hr Q20H IV 06/14/17 11:45 07/14/17 11:44 06/14/17 14:00 Dextrose (Dextrose 50%) STAT PRN IV Hypoglycemia 06/03/17 13:30 07/03/17 13:29 06/09/17 16:05 Docusate Sodium (Colace) 100 mg THREE TIMES A DAY ORAL 06/03/17 18:00 07/03/17 17:59 06/13/17 18:21 Levofloxacin 100 ml @ 100 mls/hr Q48H IVPB 06/15/17 20:00 06/22/17 19:59 Lisinopril (Prinivil) 20 mg BID ORAL 06/04/17 09:00 07/04/17 08:59 06/13/17 18:20 Meropenem 500 mg/ Sodium Chloride 55 ml @ 110 mls/hr Q12H IV 06/15/17 00:00 06/18/17 20:59 Morphine Sulfate (Morphine Sulfate) 2 mg Q4H PRN IVP BREAKTHROUGH CHEST PAIN 06/10/17 07:00 06/17/17 06:59 06/14/17 16:21 Nitroglycerin (Ntg) 0.4 mg Q5M PRN SL Prn Chest Pain 06/04/17 09:15 07/04/17 09:14 06/05/17 00:34 Nitroglycerin (Ntg) 1 patch Q24H TDERMAL 06/04/17 11:30 07/04/17 11:29 06/14/17 13:57 Ondansetron HCl (Zofran) 4 mg Q6H PRN IVP Nausea & Vomiting 06/03/17 13:30 07/03/17 13:29 Pantoprazole (Protonix) 40 mg DAILY ORAL 06/03/17 17:00 07/03/17 16:59 06/13/17 09:14 Polyethylene Glycol (Miralax) 17 gm DAILYPRN PRN ORAL Constipation 06/03/17 13:30 07/03/17 13:29 Promethazine HCl/ Codeine (Phenergan with Codeine) 5 ml Q4H PRN ORAL For Cough 06/05/17 08:30 07/05/17 08:29 Sevelamer Carbonate (Renvela) 2,400 mg THREE TIMES A DAY ORAL 06/09/17 13:00 07/09/17 12:59 06/13/17 18:20 Vancomycin HCl (Vanco rx to dose) 1 ea DAILY PRN MISC Per rx protocol 06/04/17 12:45 07/04/17 12:44 Vancomycin HCl 1 gm/Dextrose 275 ml @ 183.708 mls/hr ONCE ONCE IVPB 06/14/17 21:00 06/14/17 22:29 Allergies: Coded Allergies: No Known Allergies (Unverified , 10/24/15) ROS Limited/Unobtainable: Yes Subjective 57 YO M admitted with chest pain and shortness of breath. Now pneumonia and candelaria heart failure. Back on non rebreather. Cover for Int Med-Dr Weinstein. HIMANSHU Objective Last Vital Signs Date Time Temp Pulse Resp B/P (MAP) Pulse Ox O2 Delivery O2 Flow Rate FiO2 06/14/17 15:58 98.2 82 24 133/76 99 Non-Rebreather 99 98.2 06/14/17 07:40 15.0 Laboratory Tests Test 06/14/17 03:30 06/14/17 09:00 06/14/17 14:41 White Blood Count 4.3 K/UL (4.8-10.8) L 4.5 K/UL (4.8-10.8) L Red Blood Count 2.38 M/UL (4.70-6.10) L 2.48 M/UL (4.70-6.10) L Hemoglobin 7.2 G/DL (14.2-18.0) L 7.4 G/DL (14.2-18.0) L Hematocrit 22.9 % (42.0-52.0) L 23.9 % (42.0-52.0) L Mean Corpuscular Volume 97 FL (80-99) 96 FL (80-99) Mean Corpuscular Hemoglobin 30.1 PG (27.0-31.0) 29.9 PG (27.0-31.0) Mean Corpuscular Hemoglobin Concent 31.2 G/DL (32.0-36.0) L 31.0 G/DL (32.0-36.0) L Red Cell Distribution Width 16.6 % (11.6-14.8) H 16.9 % (11.6-14.8) H Platelet Count 98 K/UL (150-450) L 105 K/UL (150-450) L Mean Platelet Volume 7.2 FL (6.5-10.1) 6.5 FL (6.5-10.1) Neutrophils (%) (Auto) % (45.0-75.0) % (45.0-75.0) Lymphocytes (%) (Auto) % (20.0-45.0) % (20.0-45.0) Monocytes (%) (Auto) % (1.0-10.0) % (1.0-10.0) Eosinophils (%) (Auto) % (0.0-3.0) % (0.0-3.0) Basophils (%) (Auto) % (0.0-2.0) % (0.0-2.0) Differential Total Cells Counted 100 100 Neutrophils % (Manual) 62 % (45-75) 68 % (45-75) Lymphocytes % (Manual) 23 % (20-45) 16 % (20-45) L Monocytes % (Manual) 15 % (1-10) H 12 % (1-10) H Eosinophils % (Manual) 0 % (0-3) 1 % (0-3) Basophils % (Manual) 0 % (0-2) 0 % (0-2) Band Neutrophils 0 % (0-8) 3 % (0-8) Platelet Estimate Decreased L Decreased L Platelet Morphology Normal Normal Hypochromasia 1+ 2+ Anisocytosis 1+ 2+ Sodium Level 142 MMOL/L (136-145) 140 MMOL/L (136-145) Potassium Level 4.3 MMOL/L (3.5-5.1) 4.9 MMOL/L (3.5-5.1) Chloride Level 100 MMOL/L (98-107) 99 MMOL/L (98-107) Carbon Dioxide Level 36 MMOL/L (21-32) H 32 MMOL/L (21-32) Anion Gap 6 mmol/L (5-15) 9 mmol/L (5-15) Blood Urea Nitrogen 48 mg/dL (7-18) H 51 mg/dL (7-18) H Creatinine 11.9 MG/DL (0.55-1.30) H 12.3 MG/DL (0.55-1.30) H Estimat Glomerular Filtration Rate 5.3 mL/min (>60) 5.1 mL/min (>60) Glucose Level 72 MG/DL (74-106) L 76 MG/DL (74-106) Calcium Level 8.5 MG/DL (8.5-10.1) 8.5 MG/DL (8.5-10.1) Phosphorus Level 7.1 MG/DL (2.5-4.9) H Magnesium Level 2.0 MG/DL (1.8-2.4) Total Bilirubin 0.8 MG/DL (0.2-1.0) Aspartate Amino Transf (AST/SGOT) 197 U/L (15-37) H Alanine Aminotransferase (ALT/SGPT) 400 U/L (12-78) H Alkaline Phosphatase 104 U/L (46-116) Total Protein 6.4 G/DL (6.4-8.2) Albumin 2.1 G/DL (3.4-5.0) L Globulin 4.3 g/dL Albumin/Globulin Ratio 0.5 (1.0-2.7) L Hepatitis C Antibody Pending Hepatitis C RNA (PCR) IUs/ml Pending Hepatitis C RNA (PCR) log IUs/ml Pending Intake and Output 06/13/17 06/14/17 19:00 07:00 Intake Total 446 ml 291 ml Balance 446 ml 291 ml Intake Oral 336 ml 236 ml IV Total 110 ml 55 ml # Bowel Movements 2 Objective General Appearance: WD/WN, alert, moderate distress EENT: PERRL/EOMI, normal ENT inspection Neck: non-tender, normal alignment, supple, normal inspection Cardiovascular: normal peripheral pulses, normal rate, regular rhythm, no gallop/murmur, no JVD Respiratory/Chest: Non rebreather; respiratory distress, crackles/rales, rhonchi - bilaterally, expiratory wheezing Abdomen: normal bowel sounds, non tender, soft, no organomegaly, no mass Extremities: normal range of motion 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 Currently on Non rebreather. See pulmonay note. (2) Pleuritic chest pain (3) Hemoptysis Assessment & Plan: Due to pneumonia (4) Pneumonia Assessment & Plan: RUL and cavitary. Concerning for TB. Await AFB cultures- see ID consult. Continue vanco and zosyn per ID (5) Shortness of breath (6) ESRD (end stage renal disease) on dialysis Assessment & Plan: See nephrology note. Hemodialysis 06/14/17 per nephrology (7) Hyperkalemia Assessment & Plan: Due to renal failure. Hemodialysis 06/12/17 per nephrology (8) COPD (chronic obstructive pulmonary disease) (9) HTN (hypertension) Assessment & Plan: Continue coreg and lisinopril. (10) CHF (congestive heart failure) (11) Elevated troponin Assessment & Plan: ?due to renal failure? See cardiology note. (12) Intractable abdominal pain Assessment & Plan: See surgery note. Await CT abdomen ZOEY PIRES Jun 14, 2017 16:38
[2017-06-14] MEDS ORDERED: Meperidine 50mg/ml Inj(FOR RIGORS ONLY) IM PRN ×2 (16:45→20:30)
--- NOTE | 2017-06-14 17:39 | General Progress Note ---
Assessment/Plan Assessment/Plan Assessment - Anemia - OB (+) Stool - R/O TB - ESRD/HD - DM - HTN - COPD - gallstones - rising LFT concerning - abnormal GB ultrasound - ? cholecystitis Recommendations - NPO - IVF - monitor LFT (slightly lower today) - minimize meds - d/c non vital meds - await CT, will also consider HIDA - transfuse PRN - Acid blockade - Defer EGD/Colon a this time Subjective Allergies: Coded Allergies: No Known Allergies (Unverified , 10/24/15) Subjective above noted d/w surgery patient c/o abd pain Objective Last 24 Hour Vital Signs Date Time Temp Pulse Resp B/P (MAP) Pulse Ox O2 Delivery O2 Flow Rate FiO2 06/14/17 16:00 75 06/14/17 15:58 98.2 82 24 133/76 99 Non-Rebreather 99 98.2 06/14/17 13:57 127/69 06/14/17 12:00 99.2 89 22 127/69 97 Non-Rebreather 96 99.2 06/14/17 11:47 Venturi Mask 100 06/14/17 11:46 86 06/14/17 09:00 98.6 06/14/17 09:00 86 138/92 06/14/17 09:00 138/92 06/14/17 08:40 Non-Rebreather 50 06/14/17 08:00 98.6 86 26 138/92 95 Non-Rebreather 96 98.6 06/14/17 07:45 86 06/14/17 07:40 93 Non-Rebreather 15.0 100 06/14/17 07:40 Non-Rebreather 15.0 100 06/14/17 04:00 97.6 85 20 114/76 99 Non-Rebreather 96 97.6 06/14/17 04:00 85 06/14/17 02:21 97.9 06/14/17 00:00 71 06/14/17 00:00 97.9 74 23 114/75 100 Non-Rebreather 96 97.9 06/13/17 22:55 77 32 99 Full Face 80 06/13/17 21:20 101 20 Non-Rebreather 100 06/13/17 20:28 97.9 06/13/17 20:27 80 118/64 06/13/17 20:00 85 06/13/17 20:00 97.5 80 13 118/64 100 Non-Rebreather 100 97.5 06/13/17 19:43 94 Non-Rebreather 15.0 100 06/13/17 19:43 Non-Rebreather 15.0 100 06/13/17 18:20 133/73 Intake and Output 06/13/17 06/14/17 19:00 07:00 Intake Total 446 ml 291 ml Balance 446 ml 291 ml Intake Oral 336 ml 236 ml IV Total 110 ml 55 ml # Bowel Movements 2 Laboratory Tests 06/14/17 03:30: White Blood Count 4.3L, Red Blood Count 2.38L, Hemoglobin 7.2L, Hematocrit 22.9L , Mean Corpuscular Volume 97, Mean Corpuscular Hemoglobin 30.1, Mean Corpuscular Hemoglobin Concent 31.2L, Red Cell Distribution Width 16.6H, Platelet Count 98L, Mean Platelet Volume 7.2, Neutrophils (%) (Auto) , Lymphocytes (%) (Auto) , Monocytes (%) (Auto) , Eosinophils (%) (Auto) , Basophils (%) (Auto) , Differential Total Cells Counted 100, Neutrophils % ( Manual) 62, Lymphocytes % (Manual) 23, Monocytes % (Manual) 15H, Eosinophils % ( Manual) 0, Basophils % (Manual) 0, Band Neutrophils 0, Platelet Estimate DecreasedL, Platelet Morphology Normal, Hypochromasia 1+, Anisocytosis 1+, Sodium Level 142, Potassium Level 4.3, Chloride Level 100, Carbon Dioxide Level 36H, Anion Gap 6, Blood Urea Nitrogen 48H, Creatinine 11.9H, Estimat Glomerular Filtration Rate 5.3, Glucose Level 72L, Calcium Level 8.5, Phosphorus Level 7.1H , Magnesium Level 2.0, Total Bilirubin 0.8, Aspartate Amino Transf (AST/SGOT) 197H, Alanine Aminotransferase (ALT/SGPT) 400H, Alkaline Phosphatase 104, Total Protein 6.4, Albumin 2.1L, Globulin 4.3, Albumin/Globulin Ratio 0.5L, Hepatitis C Antibody [Pending], Hepatitis C RNA (PCR) IUs/ml [Pending], Hepatitis C RNA ( PCR) log IUs/ml [Pending] 06/14/17 09:00: Sodium Level 140, Potassium Level 4.9, Chloride Level 99, Carbon Dioxide Level 32, Anion Gap 9, Blood Urea Nitrogen 51H, Creatinine 12.3H, Estimat Glomerular Filtration Rate 5.1, Glucose Level 76, Calcium Level 8.5 06/14/17 14:41: White Blood Count 4.5L, Red Blood Count 2.48L, Hemoglobin 7.4L, Hematocrit 23.9L , Mean Corpuscular Volume 96, Mean Corpuscular Hemoglobin 29.9, Mean Corpuscular Hemoglobin Concent 31.0L, Red Cell Distribution Width 16.9H, Platelet Count 105L, Mean Platelet Volume 6.5, Neutrophils (%) (Auto) , Lymphocytes (%) (Auto) , Monocytes (%) (Auto) , Eosinophils (%) (Auto) , Basophils (%) (Auto) , Differential Total Cells Counted 100, Neutrophils % ( Manual) 68, Lymphocytes % (Manual) 16L, Monocytes % (Manual) 12H, Eosinophils % (Manual) 1, Basophils % (Manual) 0, Band Neutrophils 3, Platelet Estimate DecreasedL, Platelet Morphology Normal, Hypochromasia 2+, Anisocytosis 2+ Height (Feet): 5 Height (Inches): 7.00 Weight (Pounds): 219 Objective WDWN AA Man NCAT supple CTA RRR Soft mildly distended, (+) RUQ TTP No edema PERCY JOYNER Jun 14, 2017 17:39
[2017-06-14] MEDS ORDERED: D5W IV SCH ×2 (18:00→19:30)
[2017-06-14] MEDS ORDERED: AMPHOTERICIN B IV SCH (18:00)
[2017-06-14] MEDS ORDERED: AMIKACIN IV SCH (19:30)
[2017-06-14 20:30] VITALS: BP 152/103
[2017-06-14] MEDS ORDERED: Promethazine/Codeine 5ml UD ORAL PRN (20:30)
[2017-06-14] MEDS ORDERED: Acetaminophen 650 MG SUPP RECTAL PRN (20:30)
[2017-06-14] MEDS ORDERED: Nitroglycerin Subl 0.4mg tab SL PRN (20:30)
[2017-06-14] MEDS ORDERED: ALPRAZolam 0.5mg tab ORAL PRN (21:00)
[2017-06-14] MEDS ORDERED: Vancomycin 1gm/D5W 275ml IVPB ONE ×2 (21:00)
[2017-06-14] MEDS ORDERED: Miralax 17gm pkt ORAL PRN (21:00)
[2017-06-14] MEDS: AMIKACIN IV SCH (22:22)
[2017-06-14] MEDS: D5W IV SCH (22:22)
[2017-06-15] VITALS (9 sets, daily range): BP systolic 97–141; BP diastolic 58–93
[2017-06-15] MEDS ORDERED: Meropenem 500 MG in NS 55 ML IV SCH ×2
[2017-06-15] MEDS ORDERED: Vancomycin 1 GM in D5W 275 ML IVPB ONE ×2
[2017-06-15 07:19] LABS: HEMATOCRIT 21.7 % (42.0-52.0); MEAN CORPUSCULAR VOLUME 97 FL (80-99); PLATELET COUNT 103 K/UL (150-450); RED BLOOD COUNT 2.23 M/UL (4.70-6.10); RED CELL DISTRIBUTION WIDTH 17.3 % (11.6-14.8); WHITE BLOOD COUNT 5.7 K/UL (4.8-10.8)
[2017-06-15 07:24] LABS: HEMOGLOBIN 6.6 G/DL (14.2-18.0)
[2017-06-15 07:36] LABS: ALANINE AMINOTRANSFERASE 271 U/L (12-78); ALBUMIN/GLOBULIN RATIO 0.5 (1.0-2.7); ALKALINE PHOSPHATASE 118 U/L (46-116); ANION GAP 6 mmol/L (5-15); ASPARTATE AMINO TRANSFERASE 91 U/L (15-37); BILIRUBIN,TOTAL 1.3 MG/DL (0.2-1.0); BLOOD UREA NITROGEN 36 mg/dL (7-18); CALCIUM 8.4 MG/DL (8.5-10.1); CARBON DIOXIDE 35 MMOL/L (21-32); CHLORIDE 100 MMOL/L (98-107); CREATININE 10.1 MG/DL (0.55-1.30); PHOSPHORUS 5.3 MG/DL (2.5-4.9); POTASSIUM 3.9 MMOL/L (3.5-5.1); SODIUM 141 MMOL/L (136-145)
[2017-06-15 07:39] LABS: BILIRUBIN,DIRECT 0.7 MG/DL (0.0-0.3)
[2017-06-15] MEDS: Morphine Sulfate 2mg/ml Inj IVP PRN ×2 (08:12→22:05)
[2017-06-15] MEDS: Carvedilol 25mg Tab ORAL SCH ×2 (08:15→20:41)
[2017-06-15] MEDS: Docusate 100mg cap ORAL SCH ×3 (08:15→17:12)
[2017-06-15] MEDS: Lisinopril 20mg tab ORAL SCH ×2 (08:15→17:12)
[2017-06-15] MEDS: ALPRAZolam 0.5mg tab ORAL SCH ×2 (09:00→20:47)
--- NOTE | 2017-06-15 11:17 | Pulmonology Progress Note ---
Assessment/Plan Problems: (1) Respiratory failure (2) Pneumonia (3) Hemoptysis (4) Anemia (5) ESRD (end stage renal disease) on dialysis (6) HTN (hypertension) Assessment/Plan prbc times one today slowly improving cxr in a few days on venturi mask clinically better HD by policy service coordinator check sputum Sputum shows only charli continue abx, repeat cultures hold heparin for low PLT on anti TB meds f/u wbc and cultures Subjective ROS Limited/Unobtainable: No Constitutional: Reports: no symptoms HEENT: Repors: no symptoms Respiratory: Reports: no symptoms Allergies: Coded Allergies: No Known Allergies (Unverified , 10/24/15) Objective Last 24 Hour Vital Signs Date Time Temp Pulse Resp B/P (MAP) Pulse Ox O2 Delivery O2 Flow Rate FiO2 06/15/17 09:07 Non-Rebreather 15.0 100 06/15/17 09:06 96 Non-Rebreather 15.0 100 06/15/17 08:42 99.3 06/15/17 08:42 99.3 06/15/17 08:16 99.3 06/15/17 08:15 134/55 06/15/17 08:15 74 134/55 06/15/17 08:12 99.3 06/15/17 08:03 80 06/15/17 08:00 98.8 74 20 134/60 97 Non-Rebreather 15.0 100 98.8 06/15/17 06:03 86 38 94 Full Face 100 06/15/17 04:00 99.3 82 24 106/60 97 Non-Rebreather 100 99.3 06/15/17 03:58 82 06/15/17 03:40 84 45 93 Full Face 100 06/15/17 00:00 99.0 91 20 141/93 94 Non-Rebreather 100 99.0 06/14/17 23:50 101 06/14/17 22:03 95 152/103 06/14/17 20:30 98.2 95 28 152/103 96 Non-Rebreather 100 98.2 06/14/17 19:45 79 06/14/17 19:04 Non-Rebreather 15.0 100 06/14/17 19:04 92 Non-Rebreather 15.0 100 06/14/17 18:25 133/76 06/14/17 16:00 75 06/14/17 15:58 98.2 82 24 133/76 99 Non-Rebreather 99 98.2 06/14/17 13:57 127/69 06/14/17 12:00 99.2 89 22 127/69 97 Non-Rebreather 96 99.2 06/14/17 11:47 Venturi Mask 100 06/14/17 11:46 86 Intake and Output 06/14/17 06/15/17 19:00 07:00 Intake Total 255 ml 50 ml Output Total 3000 ml Balance -2745 ml 50 ml IV Total 255 ml 50 ml Hemodialysis UF 3000 ml # Voids 1 Objective General Appearance: WD/WN HEENT: normocephalic, atraumatic, anicteric Respiratory/Chest: loud rhonchi Cardiovascular: normal peripheral pulses, normal rate, regular rhythm Abdomen: normal bowel sounds, soft, non tender, no organomegaly Genitourinary: normal external genitalia Extremities: no cyanosis Skin: no rash, no lesions Neurologic/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: 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, no motor/sensory deficits Lymphatic: no neck adenopathy, no groin adenopathy Microbiology Date/Time Source Procedure Growth Status 06/13/17 04:50 Blood Blood Culture - Preliminary NO GROWTH AFTER 48 HOURS Resulted 06/13/17 04:50 Blood Blood Culture - Preliminary NO GROWTH AFTER 48 HOURS Resulted Laboratory Tests 06/14/17 14:41: White Blood Count 4.5L, Red Blood Count 2.48L, Hemoglobin 7.4L, Hematocrit 23.9L , Mean Corpuscular Volume 96, Mean Corpuscular Hemoglobin 29.9, Mean Corpuscular Hemoglobin Concent 31.0L, Red Cell Distribution Width 16.9H, Platelet Count 105L, Mean Platelet Volume 6.5, Neutrophils (%) (Auto) , Lymphocytes (%) (Auto) , Monocytes (%) (Auto) , Eosinophils (%) (Auto) , Basophils (%) (Auto) , Differential Total Cells Counted 100, Neutrophils % ( Manual) 68, Lymphocytes % (Manual) 16L, Monocytes % (Manual) 12H, Eosinophils % (Manual) 1, Basophils % (Manual) 0, Band Neutrophils 3, Platelet Estimate DecreasedL, Platelet Morphology Normal, Hypochromasia 2+, Anisocytosis 2+ 06/15/17 06:15: White Blood Count 5.7, Red Blood Count 2.23L, Hemoglobin 6.6*L, Hematocrit 21.7L , Mean Corpuscular Volume 97, Mean Corpuscular Hemoglobin 29.6, Mean Corpuscular Hemoglobin Concent 30.4L, Red Cell Distribution Width 17.3H, Platelet Count 103L, Mean Platelet Volume 7.2, Neutrophils (%) (Auto) , Lymphocytes (%) (Auto) , Monocytes (%) (Auto) , Eosinophils (%) (Auto) , Basophils (%) (Auto) , Neutrophils % (Manual) [Pending], Lymphocytes % (Manual) [Pending], Platelet Estimate [Pending], Platelet Morphology [Pending], Sodium Level 141, Potassium Level 3.9, Chloride Level 100, Carbon Dioxide Level 35H, Anion Gap 6, Blood Urea Nitrogen 36H, Creatinine 10.1H, Estimat Glomerular Filtration Rate 6.4, Glucose Level 90, Calcium Level 8.4L, Phosphorus Level 5.3H , Magnesium Level 1.8, Total Bilirubin 1.3H, Direct Bilirubin 0.7H, Aspartate Amino Transf (AST/SGOT) 91H, Alanine Aminotransferase (ALT/SGPT) 271H, Alkaline Phosphatase 118H, Total Protein 6.1L, Albumin 2.0L, Globulin 4.1, Albumin/ Globulin Ratio 0.5L Current Medications Medications (Trade) Dose Ordered Sig/Jose Route PRN Reason Start Time Stop Time Status Last Admin Dose Admin Acetaminophen (Tylenol) 650 mg Q4H PRN RECTAL Mild Pain (Pain Scale 1-3) 06/14/17 20:30 07/09/17 16:29 Alprazolam (Xanax) 2 mg DAILY PRN ORAL Agitation 06/14/17 21:00 06/21/17 20:59 Alprazolam (Xanax) 2 mg Q12HR ORAL 06/14/17 21:00 06/20/17 20:59 06/14/17 22:02 Amikacin Sulfate 1000 mg/Dextrose 279 ml @ 279 mls/hr Q24HRS IV 06/14/17 23:00 06/18/17 23:01 06/14/17 22:22 Amphotericin B 50 mg/Dextrose 500 ml @ 100 mls/hr Q24H IV 06/15/17 18:00 06/19/17 17:59 Carisoprodol (Soma) 350 mg BID ORAL 06/15/17 09:00 07/15/17 08:59 06/15/17 08:16 Carisoprodol (Soma) 350 mg Q6H PRN ORAL MUSCLE SPASMS 06/14/17 21:00 07/14/17 20:59 Carvedilol (Coreg) 25 mg EVERY 12 HOURS ORAL 06/14/17 21:00 07/04/17 11:29 06/15/17 08:15 Chlorhexidine Gluconate (Mireille-Hex 2%) 1 applic DAILY@2000 TOPIC 06/15/17 20:00 07/05/17 19:59 Clonidine HCl (Catapres Tab) 0.1 mg Q4H PRN ORAL bp over 160 syst 06/14/17 20:30 07/03/17 16:29 Dextrose 1,000 ml @ 50 mls/hr Q20H IV 06/14/17 20:30 07/14/17 11:44 Dextrose (Dextrose 50%) STAT PRN IV Hypoglycemia 06/14/17 21:00 07/14/17 20:59 Docusate Sodium (Colace) 100 mg THREE TIMES A DAY ORAL 06/15/17 09:00 07/03/17 17:59 06/15/17 08:15 Ethambutol HCl (Myambutol) 2,000 mg 3XW ORAL 06/16/17 09:00 07/14/17 17:59 Levofloxacin 100 ml @ 100 mls/hr Q48H IVPB 06/15/17 20:00 06/22/17 19:59 Lisinopril (Prinivil) 20 mg BID ORAL 06/15/17 09:00 07/04/17 08:59 06/15/17 08:15 Meperidine HCl (Demerol) 25 mg ONCE PRN IM RIGOR WITH AMPHOTERICIN B 06/14/17 20:30 06/21/17 20:29 Meropenem 500 mg/ Sodium Chloride 55 ml @ 110 mls/hr Q12H IV 06/15/17 00:00 06/18/17 20:59 06/15/17 00:00 Morphine Sulfate (Morphine Sulfate) 2 mg Q4H PRN IVP BREAKTHROUGH CHEST PAIN 06/14/17 23:00 06/17/17 06:59 06/15/17 08:12 Nitroglycerin (Ntg) 0.4 mg Q5M PRN SL Prn Chest Pain 06/14/17 20:30 07/04/17 09:14 Nitroglycerin (Ntg) 1 patch Q24H TDERMAL 06/15/17 11:30 07/04/17 11:29 Ondansetron HCl (Zofran) 4 mg Q6H PRN IVP Nausea & Vomiting 06/14/17 21:00 07/14/17 20:59 Pantoprazole (Protonix) 40 mg ACBREAKFAST ORAL 06/15/17 06:30 07/15/17 06:29 06/15/17 06:14 Polyethylene Glycol (Miralax) 17 gm DAILYPRN PRN ORAL Constipation 06/14/17 21:00 07/14/17 20:59 Promethazine HCl/ Codeine (Phenergan with Codeine) 5 ml Q4H PRN ORAL For Cough 06/14/17 20:30 07/05/17 08:29 Sevelamer Carbonate (Renvela) 2,400 mg THREE TIMES A DAY ORAL 06/15/17 09:00 07/09/17 12:59 06/15/17 08:15 Vancomycin HCl (Vanco rx to dose) 1 ea DAILY PRN MISC Per rx protocol 06/15/17 09:00 07/04/17 12:44 MAICO SYED 11, 2018 11:17
--- NOTE | 2017-06-15 11:21 | General Progress Note ---
Assessment/Plan Assessment/Plan #. Anemia secondary to chronic disease. --> Hemoglobin downtrended past few days. Will need cbc if levels continue to drop --> Continue to closely monitor and trend cbc daily. --> Anemia workup completed and reviewed. Iron 42, TIBC 180, Ferritin 593, B12 876. --> Ferritin is >500, hgb goal is >7 --> Anemia w/u has been reviewed --> ++Occult blood. Consider GI Services and Recs. #. Anemia of kidney disease --> HD as needed per nephrology team --> Monitor closely. #. Generalized body ache related to fluid overload. #. End-stage renal disease, on hemodialysis. #. Tachycardia, to be seen by Cardiology Service, isolated T-wave and ST- segment depression in V6. --> HR has been ~80-90bpm --> S/P Chest CT -- Evidence of worsening CHF/interstitial edema. --> Monitor for improvement. #. Elevated BNP, potentially related to underlying CKD. Subjective Date patient seen: Jun 14, 2017 Constitutional: Denies: no symptoms, chills, diaphoresis, fever, malaise, weakness, other HEENT: Denies: no symptoms, eye pain, blurred vision, tearing, double vision, ear pain, ear discharge, nose pain, nose congestion, throat pain, throat swelling, mouth pain, mouth swelling, other Cardiovascular: Denies: no symptoms, chest pain, edema, irregular heart rate, lightheadedness, palpitations, syncope, other Respiratory: Denies: no symptoms, cough, orthopnea, shortness of breath, SOB with excertion, SOB at rest, sputum, stridor, wheezing, other Gastrointestinal/Abdominal: Denies: no symptoms, abdomen distended, abdominal pain, black stools, tarry stools, blood in stool, constipated, diarrhea, difficulty swallowing, nausea, poor appetite, poor fluid intake, rectal bleeding , vomiting, other Genitourinary: Denies: no symptoms, burning, discharge, frequency, flank pain, hematuria, incontinence, pain, urgency, other Neurologic/Psychiatric: Denies: no symptoms, anxiety, depressed, emotional problems, headache, numbness, paresthesia, pre-existing deficit, seizure, tingling, tremors, weakness, other Hematologic/Lymphatic: Reports: anemia Allergies: Coded Allergies: No Known Allergies (Unverified , 10/24/15) Subjective Pt agitated. Hemoglobin has been downtrending. Pending blood transfusion. Objective Last 24 Hour Vital Signs Date Time Temp Pulse Resp B/P (MAP) Pulse Ox O2 Delivery O2 Flow Rate FiO2 06/15/17 09:07 Non-Rebreather 15.0 100 06/15/17 09:06 96 Non-Rebreather 15.0 100 06/15/17 08:42 99.3 06/15/17 08:42 99.3 06/15/17 08:16 99.3 06/15/17 08:15 134/55 06/15/17 08:15 74 134/55 06/15/17 08:12 99.3 06/15/17 08:03 80 06/15/17 08:00 98.8 74 20 134/60 97 Non-Rebreather 15.0 100 98.8 06/15/17 06:03 86 38 94 Full Face 100 06/15/17 04:00 99.3 82 24 106/60 97 Non-Rebreather 100 99.3 06/15/17 03:58 82 06/15/17 03:40 84 45 93 Full Face 100 06/15/17 00:00 99.0 91 20 141/93 94 Non-Rebreather 100 99.0 06/14/17 23:50 101 06/14/17 22:03 95 152/103 06/14/17 20:30 98.2 95 28 152/103 96 Non-Rebreather 100 98.2 06/14/17 19:45 79 06/14/17 19:04 Non-Rebreather 15.0 100 06/14/17 19:04 92 Non-Rebreather 15.0 100 06/14/17 18:25 133/76 06/14/17 16:00 75 06/14/17 15:58 98.2 82 24 133/76 99 Non-Rebreather 99 98.2 06/14/17 13:57 127/69 06/14/17 12:00 99.2 89 22 127/69 97 Non-Rebreather 96 99.2 06/14/17 11:47 Venturi Mask 100 06/14/17 11:46 86 Intake and Output 06/14/17 06/15/17 20:00 08:00 Intake Total 255 ml 100 ml Output Total 3000 ml Balance -2745 ml 100 ml IV Total 255 ml 100 ml Hemodialysis UF 3000 ml # Voids 1 Laboratory Tests 06/14/17 14:41: White Blood Count 4.5L, Red Blood Count 2.48L, Hemoglobin 7.4L, Hematocrit 23.9L , Mean Corpuscular Volume 96, Mean Corpuscular Hemoglobin 29.9, Mean Corpuscular Hemoglobin Concent 31.0L, Red Cell Distribution Width 16.9H, Platelet Count 105L, Mean Platelet Volume 6.5, Neutrophils (%) (Auto) , Lymphocytes (%) (Auto) , Monocytes (%) (Auto) , Eosinophils (%) (Auto) , Basophils (%) (Auto) , Differential Total Cells Counted 100, Neutrophils % ( Manual) 68, Lymphocytes % (Manual) 16L, Monocytes % (Manual) 12H, Eosinophils % (Manual) 1, Basophils % (Manual) 0, Band Neutrophils 3, Platelet Estimate DecreasedL, Platelet Morphology Normal, Hypochromasia 2+, Anisocytosis 2+ 06/15/17 06:15: White Blood Count 5.7, Red Blood Count 2.23L, Hemoglobin 6.6*L, Hematocrit 21.7L , Mean Corpuscular Volume 97, Mean Corpuscular Hemoglobin 29.6, Mean Corpuscular Hemoglobin Concent 30.4L, Red Cell Distribution Width 17.3H, Platelet Count 103L, Mean Platelet Volume 7.2, Neutrophils (%) (Auto) , Lymphocytes (%) (Auto) , Monocytes (%) (Auto) , Eosinophils (%) (Auto) , Basophils (%) (Auto) , Neutrophils % (Manual) [Pending], Lymphocytes % (Manual) [Pending], Platelet Estimate [Pending], Platelet Morphology [Pending], Sodium Level 141, Potassium Level 3.9, Chloride Level 100, Carbon Dioxide Level 35H, Anion Gap 6, Blood Urea Nitrogen 36H, Creatinine 10.1H, Estimat Glomerular Filtration Rate 6.4, Glucose Level 90, Calcium Level 8.4L, Phosphorus Level 5.3H , Magnesium Level 1.8, Total Bilirubin 1.3H, Direct Bilirubin 0.7H, Aspartate Amino Transf (AST/SGOT) 91H, Alanine Aminotransferase (ALT/SGPT) 271H, Alkaline Phosphatase 118H, Total Protein 6.1L, Albumin 2.0L, Globulin 4.1, Albumin/ Globulin Ratio 0.5L Height (Feet): 5 Height (Inches): 7.00 Weight (Pounds): 217 Irving Parker Jun 15, 2017 11:21
[2017-06-15] MEDS: Meropenem 500 MG in NS 55 ML IV SCH ×4 (12:24→23:06)
[2017-06-15] MEDS: Nitroglycerin Patch 0.4mg TDERMAL SCH (12:25)
--- NOTE | 2017-06-15 13:17 | General Surgery Progress Note ---
General Surgery-Progress Note Subjective Additional Comments anemia receiving transfusion. still with right sided pain on exam. Objective Last 24 Hour Vital Signs Date Time Temp Pulse Resp B/P (MAP) Pulse Ox O2 Delivery O2 Flow Rate FiO2 06/15/17 12:25 140/67 06/15/17 11:35 97.3 72 20 140/67 97 Non-Rebreather 15.0 100 97.3 06/15/17 09:07 Non-Rebreather 15.0 100 06/15/17 09:06 96 Non-Rebreather 15.0 100 06/15/17 08:42 99.3 06/15/17 08:42 99.3 06/15/17 08:16 99.3 06/15/17 08:15 134/55 06/15/17 08:15 74 134/55 06/15/17 08:12 99.3 06/15/17 08:03 80 06/15/17 08:00 98.8 74 20 134/60 97 Non-Rebreather 15.0 100 98.8 06/15/17 06:03 86 38 94 Full Face 100 06/15/17 04:00 99.3 82 24 106/60 97 Non-Rebreather 100 99.3 06/15/17 03:58 82 06/15/17 03:40 84 45 93 Full Face 100 06/15/17 00:00 99.0 91 20 141/93 94 Non-Rebreather 100 99.0 06/14/17 23:50 101 06/14/17 22:03 95 152/103 06/14/17 20:30 98.2 95 28 152/103 96 Non-Rebreather 100 98.2 06/14/17 19:45 79 06/14/17 19:04 Non-Rebreather 15.0 100 06/14/17 19:04 92 Non-Rebreather 15.0 100 06/14/17 18:25 133/76 06/14/17 16:00 75 06/14/17 15:58 98.2 82 24 133/76 99 Non-Rebreather 99 98.2 06/14/17 13:57 127/69 I&O Intake and Output 06/14/17 06/15/17 19:00 07:00 Intake Total 255 ml 50 ml Output Total 3000 ml Balance -2745 ml 50 ml IV Total 255 ml 50 ml Hemodialysis UF 3000 ml # Voids 1 Drains: none Cardiovascular: RSR Respiratory: clear Abdomen: soft, tenderness, present bowel sounds Extremities: no cyanosis Laboratory Tests Test 06/14/17 14:41 06/15/17 06:15 White Blood Count 4.5 K/UL (4.8-10.8) L 5.7 K/UL (4.8-10.8) Red Blood Count 2.48 M/UL (4.70-6.10) L 2.23 M/UL (4.70-6.10) L Hemoglobin 7.4 G/DL (14.2-18.0) L 6.6 G/DL (14.2-18.0) *L Hematocrit 23.9 % (42.0-52.0) L 21.7 % (42.0-52.0) L Mean Corpuscular Volume 96 FL (80-99) 97 FL (80-99) Mean Corpuscular Hemoglobin 29.9 PG (27.0-31.0) 29.6 PG (27.0-31.0) Mean Corpuscular Hemoglobin Concent 31.0 G/DL (32.0-36.0) L 30.4 G/DL (32.0-36.0) L Red Cell Distribution Width 16.9 % (11.6-14.8) H 17.3 % (11.6-14.8) H Platelet Count 105 K/UL (150-450) L 103 K/UL (150-450) L Mean Platelet Volume 6.5 FL (6.5-10.1) 7.2 FL (6.5-10.1) Neutrophils (%) (Auto) % (45.0-75.0) % (45.0-75.0) Lymphocytes (%) (Auto) % (20.0-45.0) % (20.0-45.0) Monocytes (%) (Auto) % (1.0-10.0) % (1.0-10.0) Eosinophils (%) (Auto) % (0.0-3.0) % (0.0-3.0) Basophils (%) (Auto) % (0.0-2.0) % (0.0-2.0) Differential Total Cells Counted 100 Neutrophils % (Manual) 68 % (45-75) Pending Lymphocytes % (Manual) 16 % (20-45) L Pending Monocytes % (Manual) 12 % (1-10) H Eosinophils % (Manual) 1 % (0-3) Basophils % (Manual) 0 % (0-2) Band Neutrophils 3 % (0-8) Platelet Estimate Decreased L Pending Platelet Morphology Normal Pending Hypochromasia 2+ Anisocytosis 2+ Sodium Level 141 MMOL/L (136-145) Potassium Level 3.9 MMOL/L (3.5-5.1) Chloride Level 100 MMOL/L (98-107) Carbon Dioxide Level 35 MMOL/L (21-32) H Anion Gap 6 mmol/L (5-15) Blood Urea Nitrogen 36 mg/dL (7-18) H Creatinine 10.1 MG/DL (0.55-1.30) H Estimat Glomerular Filtration Rate 6.4 mL/min (>60) Glucose Level 90 MG/DL (74-106) Calcium Level 8.4 MG/DL (8.5-10.1) L Phosphorus Level 5.3 MG/DL (2.5-4.9) H Magnesium Level 1.8 MG/DL (1.8-2.4) Total Bilirubin 1.3 MG/DL (0.2-1.0) H Direct Bilirubin 0.7 MG/DL (0.0-0.3) H Aspartate Amino Transf (AST/SGOT) 91 U/L (15-37) H Alanine Aminotransferase (ALT/SGPT) 271 U/L (12-78) H Alkaline Phosphatase 118 U/L (46-116) H Total Protein 6.1 G/DL (6.4-8.2) L Albumin 2.0 G/DL (3.4-5.0) L Globulin 4.1 g/dL Albumin/Globulin Ratio 0.5 (1.0-2.7) L Plan Problems: (1) Intractable abdominal pain Assessment & Plan: 57M with abdominal pain. elevated lft's and ultrasound reviewed. has liver cirrhosis, ascites, and gallbladder findings on ultrasound likely secondary to intrinsic liver disease. on exam his abdominal pain is fairly superficial and around this right abd upper and lower and right flank. he has edema and thickening of the right subcutaneous tissues as compared to the left. possible abscess vs cellulitis? Ultrasound findings: Impression: Ascites Evidence of hepatic cirrhosis Cholelithiasis. There is gallbladder wall thickening, likely related to hemodynamic abnormalities related to the hepatic abnormality, particularly as this is evident on the prior exam of 2 years earlier. However, acute cholecystitis cannot be completely ruled out, and hepatobiliary scanning is recommended if there is high clinical suspicion LFT's improving. but still no clear explanation as to acute elevation in LFT' s. still with Right sided abdominal pain -obtain CT A/P to evaluate for intraabdominal process and subcutaneous cellulitis vs abscess. may even have enteritis, colitis, appendicitis given exam. need CT to evaluate as ultrasound limited. -cont abx -will follow with recs. Ever Parham Jun 15, 2017 13:17
--- NOTE | 2017-06-15 14:32 | Cardiology Progress Note ---
Assessment/Plan Problem List: (1) CHF (congestive heart failure) (2) COPD (chronic obstructive pulmonary disease) (3) HTN (hypertension) (4) Elevated troponin (5) Pneumonia (6) Respiratory failure Status: stable, unchanged Status Narrative Pt w/ cavitary lesion R UL - r/o TB - cultures pending Pt adm w/ vol overload after having missed HD - volume status has improved. Pt s/ p ICD - ? for nonischemic cm. EF currently 40s Mild troponin elevation on adm BNP elevated - inaccurate in setting of RF Anemia - Hg down to 6.6 today - ? due to CKD vs acute bleed Assessment/Plan Agree w/ PRBC transfusion. GI evaluation in progress. Repeat h/h in am Continue treatment for pneumonia and w/u for possible TB per pulmonary Continue coreg, lisinopril for cardiomyopathy. Hemodialysis per Dr. Saha Subjective ROS Limited/Unobtainable: Yes Subjective Cardiology for Dr. Ely Pt sedated, on NRB mask Objective Last 24 Hour Vital Signs Date Time Temp Pulse Resp B/P (MAP) Pulse Ox O2 Delivery O2 Flow Rate FiO2 06/15/17 12:25 140/67 06/15/17 11:35 97.3 72 20 140/67 97 Non-Rebreather 15.0 100 97.3 06/15/17 09:07 Non-Rebreather 15.0 100 06/15/17 09:06 96 Non-Rebreather 15.0 100 06/15/17 08:42 99.3 06/15/17 08:42 99.3 06/15/17 08:16 99.3 06/15/17 08:15 134/55 06/15/17 08:15 74 134/55 06/15/17 08:12 99.3 06/15/17 08:03 80 06/15/17 08:00 98.8 74 20 134/60 97 Non-Rebreather 15.0 100 98.8 06/15/17 06:03 86 38 94 Full Face 100 06/15/17 04:00 99.3 82 24 106/60 97 Non-Rebreather 100 99.3 06/15/17 03:58 82 06/15/17 03:40 84 45 93 Full Face 100 06/15/17 00:00 99.0 91 20 141/93 94 Non-Rebreather 100 99.0 06/14/17 23:50 101 06/14/17 22:03 95 152/103 06/14/17 20:30 98.2 95 28 152/103 96 Non-Rebreather 100 98.2 06/14/17 19:45 79 06/14/17 19:04 Non-Rebreather 15.0 100 06/14/17 19:04 92 Non-Rebreather 15.0 100 06/14/17 18:25 133/76 06/14/17 16:00 75 06/14/17 15:58 98.2 82 24 133/76 99 Non-Rebreather 99 98.2 General Appearance: WD/WN, lethargic EENT: PERRL/EOMI Neck: no JVD Rhythm: NSR Cardiovascular: normal rate, regular rhythm, no gallop/murmur Respiratory/Chest: other - coarse bs bilat Abdomen: non tender, soft Intake and Output 06/14/17 06/15/17 19:00 07:00 Intake Total 255 ml 50 ml Output Total 3000 ml Balance -2745 ml 50 ml IV Total 255 ml 50 ml Hemodialysis UF 3000 ml # Voids 1 Laboratory Tests Test 06/14/17 14:41 06/15/17 06:15 White Blood Count 4.5 K/UL (4.8-10.8) L 5.7 K/UL (4.8-10.8) Red Blood Count 2.48 M/UL (4.70-6.10) L 2.23 M/UL (4.70-6.10) L Hemoglobin 7.4 G/DL (14.2-18.0) L 6.6 G/DL (14.2-18.0) *L Hematocrit 23.9 % (42.0-52.0) L 21.7 % (42.0-52.0) L Mean Corpuscular Volume 96 FL (80-99) 97 FL (80-99) Mean Corpuscular Hemoglobin 29.9 PG (27.0-31.0) 29.6 PG (27.0-31.0) Mean Corpuscular Hemoglobin Concent 31.0 G/DL (32.0-36.0) L 30.4 G/DL (32.0-36.0) L Red Cell Distribution Width 16.9 % (11.6-14.8) H 17.3 % (11.6-14.8) H Platelet Count 105 K/UL (150-450) L 103 K/UL (150-450) L Mean Platelet Volume 6.5 FL (6.5-10.1) 7.2 FL (6.5-10.1) Neutrophils (%) (Auto) % (45.0-75.0) % (45.0-75.0) Lymphocytes (%) (Auto) % (20.0-45.0) % (20.0-45.0) Monocytes (%) (Auto) % (1.0-10.0) % (1.0-10.0) Eosinophils (%) (Auto) % (0.0-3.0) % (0.0-3.0) Basophils (%) (Auto) % (0.0-2.0) % (0.0-2.0) Differential Total Cells Counted 100 100 Neutrophils % (Manual) 68 % (45-75) 76 % (45-75) H Lymphocytes % (Manual) 16 % (20-45) L 10 % (20-45) L Monocytes % (Manual) 12 % (1-10) H 14 % (1-10) H Eosinophils % (Manual) 1 % (0-3) 0 % (0-3) Basophils % (Manual) 0 % (0-2) 0 % (0-2) Band Neutrophils 3 % (0-8) 0 % (0-8) Platelet Estimate Decreased L Decreased L Platelet Morphology Normal Normal Hypochromasia 2+ 4+ Anisocytosis 2+ 1+ Sodium Level 141 MMOL/L (136-145) Potassium Level 3.9 MMOL/L (3.5-5.1) Chloride Level 100 MMOL/L (98-107) Carbon Dioxide Level 35 MMOL/L (21-32) H Anion Gap 6 mmol/L (5-15) Blood Urea Nitrogen 36 mg/dL (7-18) H Creatinine 10.1 MG/DL (0.55-1.30) H Estimat Glomerular Filtration Rate 6.4 mL/min (>60) Glucose Level 90 MG/DL (74-106) Calcium Level 8.4 MG/DL (8.5-10.1) L Phosphorus Level 5.3 MG/DL (2.5-4.9) H Magnesium Level 1.8 MG/DL (1.8-2.4) Total Bilirubin 1.3 MG/DL (0.2-1.0) H Direct Bilirubin 0.7 MG/DL (0.0-0.3) H Aspartate Amino Transf (AST/SGOT) 91 U/L (15-37) H Alanine Aminotransferase (ALT/SGPT) 271 U/L (12-78) H Alkaline Phosphatase 118 U/L (46-116) H Total Protein 6.1 G/DL (6.4-8.2) L Albumin 2.0 G/DL (3.4-5.0) L Globulin 4.1 g/dL Albumin/Globulin Ratio 0.5 (1.0-2.7) L Microbiology Date/Time Source Procedure Growth Status 06/13/17 04:50 Blood Blood Culture - Preliminary NO GROWTH AFTER 48 HOURS Resulted 06/13/17 04:50 Blood Blood Culture - Preliminary NO GROWTH AFTER 48 HOURS Resulted QUETA CONWAY Jun 15, 2017 14:32
--- NOTE | 2017-06-15 14:40 | Nephrology Progress Note ---
Assessment/Plan Problem List: (1) ESRD (end stage renal disease) on dialysis (2) Shortness of breath (3) Anemia Assessment ESRD , missed HD , admitted with high K and pulmonary edema Acute respiratory distress due to volume overload elevated troponin r/o ACS h/o COPD ? exacerbation HTN urgency Cardiomyopathy L AICD anemia of chronic kidney disease Hx of CVA Plan Plan: Low H&H - consider transfusion HD next 06/16 Transfused Phos binders BP meds adjustment Optimize cardiac status per orders Subjective ROS Limited/Unobtainable: No Objective Objective Last 24 Hour Vital Signs Date Time Temp Pulse Resp B/P (MAP) Pulse Ox O2 Delivery O2 Flow Rate FiO2 06/15/17 12:25 140/67 06/15/17 11:35 97.3 72 20 140/67 97 Non-Rebreather 15.0 100 97.3 06/15/17 09:07 Non-Rebreather 15.0 100 06/15/17 09:06 96 Non-Rebreather 15.0 100 06/15/17 08:42 99.3 06/15/17 08:42 99.3 06/15/17 08:16 99.3 06/15/17 08:15 134/55 06/15/17 08:15 74 134/55 06/15/17 08:12 99.3 06/15/17 08:03 80 06/15/17 08:00 98.8 74 20 134/60 97 Non-Rebreather 15.0 100 98.8 06/15/17 06:03 86 38 94 Full Face 100 06/15/17 04:00 99.3 82 24 106/60 97 Non-Rebreather 100 99.3 06/15/17 03:58 82 06/15/17 03:40 84 45 93 Full Face 100 06/15/17 00:00 99.0 91 20 141/93 94 Non-Rebreather 100 99.0 06/14/17 23:50 101 06/14/17 22:03 95 152/103 06/14/17 20:30 98.2 95 28 152/103 96 Non-Rebreather 100 98.2 06/14/17 19:45 79 06/14/17 19:04 Non-Rebreather 15.0 100 06/14/17 19:04 92 Non-Rebreather 15.0 100 06/14/17 18:25 133/76 06/14/17 16:00 75 06/14/17 15:58 98.2 82 24 133/76 99 Non-Rebreather 99 98.2 Intake and Output 06/14/17 06/15/17 19:00 07:00 Intake Total 255 ml 50 ml Output Total 3000 ml Balance -2745 ml 50 ml IV Total 255 ml 50 ml Hemodialysis UF 3000 ml # Voids 1 Laboratory Tests 06/14/17 14:41: White Blood Count 4.5L, Red Blood Count 2.48L, Hemoglobin 7.4L, Hematocrit 23.9L , Mean Corpuscular Volume 96, Mean Corpuscular Hemoglobin 29.9, Mean Corpuscular Hemoglobin Concent 31.0L, Red Cell Distribution Width 16.9H, Platelet Count 105L, Mean Platelet Volume 6.5, Neutrophils (%) (Auto) , Lymphocytes (%) (Auto) , Monocytes (%) (Auto) , Eosinophils (%) (Auto) , Basophils (%) (Auto) , Differential Total Cells Counted 100, Neutrophils % ( Manual) 68, Lymphocytes % (Manual) 16L, Monocytes % (Manual) 12H, Eosinophils % (Manual) 1, Basophils % (Manual) 0, Band Neutrophils 3, Platelet Estimate DecreasedL, Platelet Morphology Normal, Hypochromasia 2+, Anisocytosis 2+ 06/15/17 06:15: White Blood Count 5.7, Red Blood Count 2.23L, Hemoglobin 6.6*L, Hematocrit 21.7L , Mean Corpuscular Volume 97, Mean Corpuscular Hemoglobin 29.6, Mean Corpuscular Hemoglobin Concent 30.4L, Red Cell Distribution Width 17.3H, Platelet Count 103L, Mean Platelet Volume 7.2, Neutrophils (%) (Auto) , Lymphocytes (%) (Auto) , Monocytes (%) (Auto) , Eosinophils (%) (Auto) , Basophils (%) (Auto) , Differential Total Cells Counted 100, Neutrophils % ( Manual) 76H, Lymphocytes % (Manual) 10L, Monocytes % (Manual) 14H, Eosinophils % (Manual) 0, Basophils % (Manual) 0, Band Neutrophils 0, Platelet Estimate DecreasedL, Platelet Morphology Normal, Hypochromasia 4+, Anisocytosis 1+, Sodium Level 141, Potassium Level 3.9, Chloride Level 100, Carbon Dioxide Level 35H, Anion Gap 6, Blood Urea Nitrogen 36H, Creatinine 10.1H, Estimat Glomerular Filtration Rate 6.4, Glucose Level 90, Calcium Level 8.4L, Phosphorus Level 5.3H , Magnesium Level 1.8, Total Bilirubin 1.3H, Direct Bilirubin 0.7H, Aspartate Amino Transf (AST/SGOT) 91H, Alanine Aminotransferase (ALT/SGPT) 271H, Alkaline Phosphatase 118H, Total Protein 6.1L, Albumin 2.0L, Globulin 4.1, Albumin/ Globulin Ratio 0.5L Height (Feet): 5 Height (Inches): 7.00 Weight (Pounds): 217 General Appearance: no apparent distress Cardiovascular: normal rate Respiratory/Chest: decreased breath sounds Abdomen: soft, distended Objective no change LIAM MONTELONGO Jun 15, 2017 14:40
--- NOTE | 2017-06-15 14:53 | General Progress Note ---
Assessment/Plan Assessment/Plan Assessment - Anemia - OB (+) Stool - R/O TB - ESRD/HD - DM - HTN - COPD - gallstones - RUQ TTP and rising LFT concerning - abnormal GB ultrasound - ? cholecystitis Recommendations - NPO - IVF - monitor LFT - minimize meds - await CT, will also consider HIDA - transfuse PRN - Acid blockade - Defer EGD/Colon a this time Subjective Allergies: Coded Allergies: No Known Allergies (Unverified , 10/24/15) Subjective above noted no events overnight patient c/o abd pain Objective Last 24 Hour Vital Signs Date Time Temp Pulse Resp B/P (MAP) Pulse Ox O2 Delivery O2 Flow Rate FiO2 06/15/17 12:25 140/67 06/15/17 11:35 97.3 72 20 140/67 97 Non-Rebreather 15.0 100 97.3 06/15/17 09:07 Non-Rebreather 15.0 100 06/15/17 09:06 96 Non-Rebreather 15.0 100 06/15/17 08:42 99.3 06/15/17 08:42 99.3 06/15/17 08:16 99.3 06/15/17 08:15 134/55 06/15/17 08:15 74 134/55 06/15/17 08:12 99.3 06/15/17 08:03 80 06/15/17 08:00 98.8 74 20 134/60 97 Non-Rebreather 15.0 100 98.8 06/15/17 06:03 86 38 94 Full Face 100 06/15/17 04:00 99.3 82 24 106/60 97 Non-Rebreather 100 99.3 06/15/17 03:58 82 06/15/17 03:40 84 45 93 Full Face 100 06/15/17 00:00 99.0 91 20 141/93 94 Non-Rebreather 100 99.0 06/14/17 23:50 101 06/14/17 22:03 95 152/103 06/14/17 20:30 98.2 95 28 152/103 96 Non-Rebreather 100 98.2 06/14/17 19:45 79 06/14/17 19:04 Non-Rebreather 15.0 100 06/14/17 19:04 92 Non-Rebreather 15.0 100 06/14/17 18:25 133/76 06/14/17 16:00 75 06/14/17 15:58 98.2 82 24 133/76 99 Non-Rebreather 99 98.2 Intake and Output 06/14/17 06/15/17 19:00 07:00 Intake Total 255 ml 50 ml Output Total 3000 ml Balance -2745 ml 50 ml IV Total 255 ml 50 ml Hemodialysis UF 3000 ml # Voids 1 Laboratory Tests 06/15/17 06:15: White Blood Count 5.7, Red Blood Count 2.23L, Hemoglobin 6.6*L, Hematocrit 21.7L , Mean Corpuscular Volume 97, Mean Corpuscular Hemoglobin 29.6, Mean Corpuscular Hemoglobin Concent 30.4L, Red Cell Distribution Width 17.3H, Platelet Count 103L, Mean Platelet Volume 7.2, Neutrophils (%) (Auto) , Lymphocytes (%) (Auto) , Monocytes (%) (Auto) , Eosinophils (%) (Auto) , Basophils (%) (Auto) , Differential Total Cells Counted 100, Neutrophils % ( Manual) 76H, Lymphocytes % (Manual) 10L, Monocytes % (Manual) 14H, Eosinophils % (Manual) 0, Basophils % (Manual) 0, Band Neutrophils 0, Platelet Estimate DecreasedL, Platelet Morphology Normal, Hypochromasia 4+, Anisocytosis 1+, Sodium Level 141, Potassium Level 3.9, Chloride Level 100, Carbon Dioxide Level 35H, Anion Gap 6, Blood Urea Nitrogen 36H, Creatinine 10.1H, Estimat Glomerular Filtration Rate 6.4, Glucose Level 90, Calcium Level 8.4L, Phosphorus Level 5.3H , Magnesium Level 1.8, Total Bilirubin 1.3H, Direct Bilirubin 0.7H, Aspartate Amino Transf (AST/SGOT) 91H, Alanine Aminotransferase (ALT/SGPT) 271H, Alkaline Phosphatase 118H, Total Protein 6.1L, Albumin 2.0L, Globulin 4.1, Albumin/ Globulin Ratio 0.5L Height (Feet): 5 Height (Inches): 7.00 Weight (Pounds): 217 Objective WDWN AA Man NCAT supple CTA RRR Soft mildly distended, (+) RUQ TTP No edema PERCY JOYNER Jun 15, 2017 14:53
--- NOTE | 2017-06-15 16:14 | Internal Med Progress Note ---
Subjective Date of Service: Jun 15, 2017 Physician Name Pires,Zoey Attending Physician Chaitanya Weinstein MD Current Medications Medications (Trade) Dose Ordered Sig/Jose Route PRN Reason Start Time Stop Time Status Last Admin Dose Admin Acetaminophen (Tylenol) 650 mg Q4H PRN RECTAL Mild Pain (Pain Scale 1-3) 06/14/17 20:30 07/09/17 16:29 Alprazolam (Xanax) 2 mg DAILY PRN ORAL Agitation 06/14/17 21:00 06/21/17 20:59 06/15/17 12:24 Alprazolam (Xanax) 2 mg Q12HR ORAL 06/14/17 21:00 06/20/17 20:59 06/14/17 22:02 Amikacin Sulfate 1000 mg/Dextrose 279 ml @ 279 mls/hr Q24HRS IV 06/14/17 23:00 06/18/17 23:01 06/14/17 22:22 Amphotericin B 50 mg/Dextrose 500 ml @ 100 mls/hr Q24H IV 06/15/17 18:00 06/19/17 17:59 Carisoprodol (Soma) 350 mg BID ORAL 06/15/17 09:00 07/15/17 08:59 06/15/17 08:16 Carisoprodol (Soma) 350 mg Q6H PRN ORAL MUSCLE SPASMS 06/14/17 21:00 07/14/17 20:59 Carvedilol (Coreg) 25 mg EVERY 12 HOURS ORAL 06/14/17 21:00 07/04/17 11:29 06/15/17 08:15 Chlorhexidine Gluconate (Mireille-Hex 2%) 1 applic DAILY@2000 TOPIC 06/15/17 20:00 07/05/17 19:59 Clonidine HCl (Catapres Tab) 0.1 mg Q4H PRN ORAL bp over 160 syst 06/14/17 20:30 07/03/17 16:29 Dextrose 1,000 ml @ 50 mls/hr Q20H IV 06/14/17 20:30 07/14/17 11:44 Dextrose (Dextrose 50%) STAT PRN IV Hypoglycemia 06/14/17 21:00 07/14/17 20:59 Docusate Sodium (Colace) 100 mg THREE TIMES A DAY ORAL 06/15/17 09:00 07/03/17 17:59 06/15/17 12:25 Ethambutol HCl (Myambutol) 2,000 mg 3XW ORAL 06/16/17 09:00 07/14/17 17:59 Levofloxacin 100 ml @ 100 mls/hr Q48H IVPB 06/15/17 20:00 06/22/17 19:59 Lisinopril (Prinivil) 20 mg BID ORAL 06/15/17 09:00 07/04/17 08:59 06/15/17 08:15 Meperidine HCl (Demerol) 25 mg ONCE PRN IM RIGOR WITH AMPHOTERICIN B 06/14/17 20:30 06/21/17 20:29 Meropenem 500 mg/ Sodium Chloride 55 ml @ 110 mls/hr Q12H IV 06/15/17 00:00 06/18/17 20:59 06/15/17 12:24 Morphine Sulfate (Morphine Sulfate) 2 mg Q4H PRN IVP BREAKTHROUGH CHEST PAIN 06/14/17 23:00 06/17/17 06:59 06/15/17 08:12 Nitroglycerin (Ntg) 0.4 mg Q5M PRN SL Prn Chest Pain 06/14/17 20:30 07/04/17 09:14 Nitroglycerin (Ntg) 1 patch Q24H TDERMAL 06/15/17 11:30 07/04/17 11:29 06/15/17 12:25 Ondansetron HCl (Zofran) 4 mg Q6H PRN IVP Nausea & Vomiting 06/14/17 21:00 07/14/17 20:59 Pantoprazole (Protonix) 40 mg ACBREAKFAST ORAL 06/15/17 06:30 07/15/17 06:29 06/15/17 06:14 Polyethylene Glycol (Miralax) 17 gm DAILYPRN PRN ORAL Constipation 06/14/17 21:00 07/14/17 20:59 Promethazine HCl/ Codeine (Phenergan with Codeine) 5 ml Q4H PRN ORAL For Cough 06/14/17 20:30 07/05/17 08:29 Sevelamer Carbonate (Renvela) 2,400 mg THREE TIMES A DAY ORAL 06/15/17 09:00 07/09/17 12:59 06/15/17 12:25 Vancomycin HCl (Vanco rx to dose) 1 ea DAILY PRN MISC Per rx protocol 06/15/17 09:00 07/04/17 12:44 Allergies: Coded Allergies: No Known Allergies (Unverified , 10/24/15) ROS Limited/Unobtainable: Yes Subjective 57 YO M admitted with chest pain and shortness of breath. Now pneumonia and candelaria heart failure. Back on non rebreather. Cover for Int Med-Dr Weinstein. Objective Last Vital Signs Date Time Temp Pulse Resp B/P (MAP) Pulse Ox O2 Delivery O2 Flow Rate FiO2 06/15/17 12:25 140/67 06/15/17 11:50 70 06/15/17 11:35 97.3 20 97 Non-Rebreather 15.0 100 97.3 Laboratory Tests Test 06/15/17 06:15 White Blood Count 5.7 K/UL (4.8-10.8) Red Blood Count 2.23 M/UL (4.70-6.10) L Hemoglobin 6.6 G/DL (14.2-18.0) *L Hematocrit 21.7 % (42.0-52.0) L Mean Corpuscular Volume 97 FL (80-99) Mean Corpuscular Hemoglobin 29.6 PG (27.0-31.0) Mean Corpuscular Hemoglobin Concent 30.4 G/DL (32.0-36.0) L Red Cell Distribution Width 17.3 % (11.6-14.8) H Platelet Count 103 K/UL (150-450) L Mean Platelet Volume 7.2 FL (6.5-10.1) Neutrophils (%) (Auto) % (45.0-75.0) Lymphocytes (%) (Auto) % (20.0-45.0) Monocytes (%) (Auto) % (1.0-10.0) Eosinophils (%) (Auto) % (0.0-3.0) Basophils (%) (Auto) % (0.0-2.0) Differential Total Cells Counted 100 Neutrophils % (Manual) 76 % (45-75) H Lymphocytes % (Manual) 10 % (20-45) L Monocytes % (Manual) 14 % (1-10) H Eosinophils % (Manual) 0 % (0-3) Basophils % (Manual) 0 % (0-2) Band Neutrophils 0 % (0-8) Platelet Estimate Decreased L Platelet Morphology Normal Hypochromasia 4+ Anisocytosis 1+ Sodium Level 141 MMOL/L (136-145) Potassium Level 3.9 MMOL/L (3.5-5.1) Chloride Level 100 MMOL/L (98-107) Carbon Dioxide Level 35 MMOL/L (21-32) H Anion Gap 6 mmol/L (5-15) Blood Urea Nitrogen 36 mg/dL (7-18) H Creatinine 10.1 MG/DL (0.55-1.30) H Estimat Glomerular Filtration Rate 6.4 mL/min (>60) Glucose Level 90 MG/DL (74-106) Calcium Level 8.4 MG/DL (8.5-10.1) L Phosphorus Level 5.3 MG/DL (2.5-4.9) H Magnesium Level 1.8 MG/DL (1.8-2.4) Total Bilirubin 1.3 MG/DL (0.2-1.0) H Direct Bilirubin 0.7 MG/DL (0.0-0.3) H Aspartate Amino Transf (AST/SGOT) 91 U/L (15-37) H Alanine Aminotransferase (ALT/SGPT) 271 U/L (12-78) H Alkaline Phosphatase 118 U/L (46-116) H Total Protein 6.1 G/DL (6.4-8.2) L Albumin 2.0 G/DL (3.4-5.0) L Globulin 4.1 g/dL Albumin/Globulin Ratio 0.5 (1.0-2.7) L Microbiology Date/Time Source Procedure Growth Status 06/13/17 04:50 Blood Blood Culture - Preliminary NO GROWTH AFTER 48 HOURS Resulted 06/13/17 04:50 Blood Blood Culture - Preliminary NO GROWTH AFTER 48 HOURS Resulted Intake and Output 06/14/17 06/15/17 19:00 07:00 Intake Total 255 ml 50 ml Output Total 3000 ml Balance -2745 ml 50 ml IV Total 255 ml 50 ml Hemodialysis UF 3000 ml # Voids 1 Objective General Appearance: WD/WN, alert, moderate distress EENT: PERRL/EOMI, normal ENT inspection Neck: non-tender, normal alignment, supple, normal inspection Cardiovascular: normal peripheral pulses, normal rate, regular rhythm, no gallop/murmur, no JVD Respiratory/Chest: Non rebreather; respiratory distress, crackles/rales, rhonchi - bilaterally, expiratory wheezing Abdomen: normal bowel sounds, non tender, soft, no organomegaly, no mass Extremities: normal range of motion 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 Currently on Non rebreather. See pulmonay note. (2) Pleuritic chest pain (3) Hemoptysis Assessment & Plan: Due to pneumonia (4) Pneumonia Assessment & Plan: RUL and cavitary. Concerning for TB. Await AFB cultures- see ID consult. Continue vanco and zosyn per ID (5) Shortness of breath (6) ESRD (end stage renal disease) on dialysis Assessment & Plan: See nephrology note. Hemodialysis 06/14/17 per nephrology (7) Hyperkalemia Assessment & Plan: Due to renal failure. Hemodialysis 06/12/17 per nephrology (8) COPD (chronic obstructive pulmonary disease) (9) HTN (hypertension) Assessment & Plan: Continue coreg and lisinopril. (10) CHF (congestive heart failure) (11) Elevated troponin Assessment & Plan: ?due to renal failure? See cardiology note. (12) Intractable abdominal pain Assessment & Plan: See surgery note. Await CT abdomen ZOEY PIRES Jun 15, 2017 16:14
[2017-06-15] MEDS ORDERED: [UNRECOGNIZED DRUG - OTHER] IV SCH (18:00)
[2017-06-15] MEDS ORDERED: D5W IV SCH (18:00)
[2017-06-15] MEDS ORDERED: Dyna-Hex 2% Top Sol 2oz TOPIC SCH (20:00)
[2017-06-15] MEDS: AMIKACIN IV SCH (23:10)
[2017-06-15] MEDS: D5W IV SCH (23:10)
[2017-06-16] MEDS ORDERED: Amikacin 500mg/2mL Inj ONE (00:08)
[2017-06-16] MEDS: Morphine Sulfate 2mg/ml Inj IVP PRN ×2 (02:16→10:04)
[2017-06-16 04:30] VITALS: BP 115/73
[2017-06-16 06:10] LABS: HEMATOCRIT 23.1 % (42.0-52.0); HEMOGLOBIN 7.2 G/DL (14.2-18.0); MEAN CORPUSCULAR VOLUME 95 FL (80-99); PLATELET COUNT 96 K/UL (150-450); RED BLOOD COUNT 2.45 M/UL (4.70-6.10); RED CELL DISTRIBUTION WIDTH 18.9 % (11.6-14.8); WHITE BLOOD COUNT 5.4 K/UL (4.8-10.8)
[2017-06-16 06:54] LABS: ALANINE AMINOTRANSFERASE 226 U/L (12-78); ALBUMIN 2.1 G/DL (3.4-5.0); ALBUMIN/GLOBULIN RATIO 0.5 (1.0-2.7); ALKALINE PHOSPHATASE 111 U/L (46-116); ANION GAP 6 mmol/L (5-15); ASPARTATE AMINO TRANSFERASE 55 U/L (15-37); BILIRUBIN,TOTAL 1.3 MG/DL (0.2-1.0); BLOOD UREA NITROGEN 46 mg/dL (7-18); CALCIUM 8.8 MG/DL (8.5-10.1); CARBON DIOXIDE 35 MMOL/L (21-32); CHLORIDE 96 MMOL/L (98-107); CREATININE 11.2 MG/DL (0.55-1.30); SODIUM 137 MMOL/L (136-145)
[2017-06-16 07:06] LABS: BILIRUBIN,DIRECT 0.7 MG/DL (0.0-0.3)
[2017-06-16 08:00] VITALS: BP 154/71
--- NOTE | 2017-06-16 08:35 | Diagnostic Imaging Report ---
Indication: Abdominal pain Technique: Spiral acquisitions obtained through the abdomen and pelvis. No oral contrast, patient unable to tolerate by mouth contrast. No IV contrast No IV contrast utilized, per referring physician request.. Multiplanar reconstructions were generated. Total dose length product 2020.44 mGycm. CTDIvol(s) 27.17,19.95 mGy. Dose reduction achieved using automated exposure control Comparison: None. Reference made to ultrasound dated 06/13/2016 Findings: There are scattered colonic diverticula. No evidence of diverticulitis. The appendix is not definitely visualized, but no findings to suggest acute appendicitis are evident. No small bowel distention or small bowel wall thickening. Contrast is seen throughout the entirety of the small bowel and well into the colon There is a small amount of ascites fluid. There is also generalized edema of the subcutaneous fat. Lack of IV contrast limits assessment of solid organs. Liver demonstrates a subcentimeter lesion in segment 8 near the tip of the right hepatic lobe. Liver is somewhat enlarged, demonstrates surface nodularity better appreciated on recent ultrasound. The gallbladder contains gallstones. No biliary ductal dilatation. The pancreas is unremarkable. The spleen is mildly enlarged, measuring 13.6 cm long axis dimension. The adrenals are unremarkable. The left kidney demonstrates multiple cysts as well as subcentimeter low-attenuation lesions which are too small to characterize. Both kidneys are somewhat atrophic. The right kidney demonstrates a few subcentimeter exophytic low-attenuation lesion which are too small to characterize. No pelvic mass or adenopathy. Extensive consolidation is seen at both lung bases. There are small bilateral pleural effusions. The bones demonstrate degenerative spondylosis changes. Impression: Evidence of hepatic cirrhosis. Hepatosplenomegaly Ascites. There is also evidence of generalized anasarca, with pleural fluid and generalized subcutaneous edema Cholelithiasis, also previously reported Possible diverticulosis. No evidence of diverticulitis Nonvisualized appendix. No evidence of appendicitis Left renal cysts. Subcentimeter right lobe hepatic and bilateral renal lesions, too small to characterize, most likely benign simple cysts. No further follow-up necessary Bilateral pleural effusions and parenchymal consolidation. This agrees with the preliminary interpretation provided overnight by [facility] teleradiology service. The CT scanner at [facility] is accredited by the [employer] and the scans are performed using protocols designed to limit radiation exposure to as low as reasonably achievable to attain images of sufficient resolution adequate for diagnostic evaluation.
--- NOTE | 2017-06-16 08:43 | Diagnostic Imaging Report ---
Clinical Indication: Chest pain Technique: Spiral acquisitions obtained through the chest. No IV contrast utilized, referring physician request. Multiplanar reconstructions generated. Total dose length product 2020.44 mGycm. CTDIvol(s) 27.17,19.95 mGy. Dose reduction achieved using automated exposure control Comparison: 06/05/2017 Findings: 6 cm diameter cavitating lesion in the right lung with some central fluid appears slightly smaller, previously measuring Crosley 7 cm in diameter.. The cavity appears somewhat more complex. Surgical staple line versus calcification is seen in immediately adjacent to it. Consolidative opacities are seen adjacent to the lesion, predominantly in the right lower lobe, increased from the previous exam. There is groundglass opacity which is diffuse, slightly increased from prior exam. Consolidative opacities in the left lung, probably in the lower lobe, have increased is a previous study. Small right pleural and trace left effusion is increased from the previous exam. The heart remains enlarged. A pacemaker is again demonstrated. Prominent but not frankly enlarged mediastinal lymph nodes are demonstrated. There is a right jugular central venous catheter again demonstrated. No axillary or chest wall mass or adenopathy. Calcified left lobe thyroid lesion again demonstrated. Mild bilateral gynecomastia again demonstrated No pericardial effusion. There is generalized edema of the subcutaneous fat. The bones are unremarkable. Impression: Slightly smaller but mostly unchanged cavitary lesion in the right lung, previously thought to represent a cavitating inflammatory process. Lung abscess is certainly a possibility Fairly extensive bilateral pulmonary parenchymal consolidation, slightly increased from previous exam of 06/05/2017. Likely a combination of pulmonary edema and pneumonia Small right and trace left pleural effusion, new/increased from the previous study. Massive cardiomegaly Pacemaker and right jugular central venous catheter again demonstrated Generalized edema of the subcutaneous fat Evidence of prior right lung surgery. Other findings as noted, including calcified left lower pole thyroid lesion, bilateral mild gynecomastia This agrees with the preliminary interpretation provided overnight by [facility] teleradiology service. The CT scanner at [facility] is accredited by the [employer] and the scans are performed using protocols designed to limit radiation exposure to as low as reasonably achievable to attain images of sufficient resolution adequate for diagnostic evaluation.
[2017-06-16] MEDS: Carvedilol 25mg Tab ORAL SCH ×2 (09:00→20:30)
[2017-06-16] MEDS: Lisinopril 20mg tab ORAL SCH ×2 (09:00→18:51)
[2017-06-16] MEDS: ALPRAZolam 0.5mg tab ORAL SCH ×2 (10:03→21:26)
[2017-06-16] MEDS: Docusate 100mg cap ORAL SCH ×3 (10:03→18:50)
--- NOTE | 2017-06-16 10:08 | General Progress Note ---
Assessment/Plan Assessment/Plan #. Anemia secondary to chronic disease. --> S/P blood transfusion as hemoglobin dropped below goal. --> S/P abd CAT scan revealing evidence of hepatic cirrhosis. Hepatosplenomegaly. Ascites. There is also evidence of generalized anasarca, with pleural fluid and generalized subcutaneous edema --> Continue to closely monitor and trend cbc daily. --> Anemia workup completed and reviewed. Iron 42, TIBC 180, Ferritin 593, B12 876. --> Ferritin is >500, hgb goal is >7 --> Anemia w/u has been reviewed --> ++Occult blood. Consider GI Services and Recs. #. Anemia of kidney disease --> HD as needed per nephrology team --> Monitor closely. #. Generalized body ache related to fluid overload. #. End-stage renal disease, on hemodialysis. #. Tachycardia, to be seen by Cardiology Service, isolated T-wave and ST- segment depression in V6. --> HR has been ~80-90bpm --> S/P Chest CT -- Evidence of worsening CHF/interstitial edema. --> Monitor for improvement. #. Elevated BNP, potentially related to underlying CKD. Subjective Date patient seen: Jun 15, 2017 Constitutional: Denies: no symptoms, chills, diaphoresis, fever, malaise, weakness, other HEENT: Denies: no symptoms, eye pain, blurred vision, tearing, double vision, ear pain, ear discharge, nose pain, nose congestion, throat pain, throat swelling, mouth pain, mouth swelling, other Cardiovascular: Denies: no symptoms, chest pain, edema, irregular heart rate, lightheadedness, palpitations, syncope, other Respiratory: Denies: no symptoms, cough, orthopnea, shortness of breath, SOB with excertion, SOB at rest, sputum, stridor, wheezing, other Gastrointestinal/Abdominal: Denies: no symptoms, abdomen distended, abdominal pain, black stools, tarry stools, blood in stool, constipated, diarrhea, difficulty swallowing, nausea, poor appetite, poor fluid intake, rectal bleeding , vomiting, other Genitourinary: Denies: no symptoms, burning, discharge, frequency, flank pain, hematuria, incontinence, pain, urgency, other Neurologic/Psychiatric: Denies: no symptoms, anxiety, depressed, emotional problems, headache, numbness, paresthesia, pre-existing deficit, seizure, tingling, tremors, weakness, other Hematologic/Lymphatic: Reports: anemia Allergies: Coded Allergies: No Known Allergies (Unverified , 10/24/15) Subjective S/P PRBC. S/P Chest CT and Abdomen CT. No adverse events. Objective Last 24 Hour Vital Signs Date Time Temp Pulse Resp B/P (MAP) Pulse Ox O2 Delivery O2 Flow Rate FiO2 06/16/17 08:00 98.1 83 20 154/71 95 Venturi Mask 15.0 98.1 06/16/17 07:20 Venturi Mask 12.0 50 06/16/17 07:20 95 Venturi Mask 12.0 50 06/16/17 05:12 82 20 92 Facial 60 06/16/17 04:30 97.7 85 20 115/73 98 Venturi Mask 15.0 97.7 06/16/17 04:08 86 06/16/17 00:23 92 06/16/17 00:07 82 06/15/17 23:25 97.7 83 20 111/73 96 Venturi Mask 15.0 97.7 06/15/17 21:30 74 20 111/60 06/15/17 20:41 70 97/58 06/15/17 20:30 97.3 70 20 97/58 96 Non-Rebreather 97.3 06/15/17 20:00 97.3 70 20 97/58 96 Non-Rebreather 15.0 100 97.3 06/15/17 19:18 Non-Rebreather 15.0 100 06/15/17 19:18 98 Non-Rebreather 15.0 100 06/15/17 18:11 97.3 06/15/17 17:12 115/66 06/15/17 17:12 97.3 06/15/17 17:10 97.3 72 20 115/66 95 Non-Rebreather 15.0 100 97.3 06/15/17 16:18 71 06/15/17 12:25 140/67 06/15/17 11:50 70 06/15/17 11:35 97.3 72 20 140/67 97 Non-Rebreather 15.0 100 97.3 Intake and Output 06/15/17 06/16/17 19:00 07:00 Intake Total 410 ml 550 ml Balance 410 ml 550 ml IV Total 410 ml 550 ml Laboratory Tests 06/16/17 04:00: White Blood Count 5.4, Red Blood Count 2.45L, Hemoglobin 7.2L, Hematocrit 23.1L , Mean Corpuscular Volume 95, Mean Corpuscular Hemoglobin 29.6, Mean Corpuscular Hemoglobin Concent 31.3L, Red Cell Distribution Width 18.9H, Platelet Count 96L, Mean Platelet Volume 8.0, Neutrophils (%) (Auto) , Lymphocytes (%) (Auto) , Monocytes (%) (Auto) , Eosinophils (%) (Auto) , Basophils (%) (Auto) , Differential Total Cells Counted 100, Neutrophils % ( Manual) 67, Lymphocytes % (Manual) 11L, Monocytes % (Manual) 18H, Eosinophils % (Manual) 3, Basophils % (Manual) 0, Band Neutrophils 1, Platelet Estimate DecreasedL, Platelet Morphology Normal, Hypochromasia 1+, Anisocytosis 1+, Sodium Level 137, Potassium Level 4.0, Chloride Level 96L, Carbon Dioxide Level 35H, Anion Gap 6, Blood Urea Nitrogen 46H, Creatinine 11.2H, Estimat Glomerular Filtration Rate 5.7, Glucose Level 77, Calcium Level 8.8, Magnesium Level 2.0, Total Bilirubin 1.3H, Direct Bilirubin 0.7H, Aspartate Amino Transf (AST/SGOT) 55H, Alanine Aminotransferase (ALT/SGPT) 226H, Alkaline Phosphatase 111, Troponin I 0.067H, Pro-B-Type Natriuretic Peptide 24482N, Total Protein 6.5, Albumin 2.1L, Globulin 4.4, Albumin/Globulin Ratio 0.5L Height (Feet): 5 Height (Inches): 7.00 Weight (Pounds): 214 General Appearance: confused Respiratory/Chest: decreased breath sounds Edema: trace edema Irving Parker Jun 16, 2017 10:08
--- NOTE | 2017-06-16 10:19 | Nephrology Progress Note ---
Assessment/Plan Problem List: (1) ESRD (end stage renal disease) on dialysis (2) Shortness of breath (3) Anemia Assessment ESRD , missed HD , admitted with high K and pulmonary edema Acute respiratory distress due to volume overload elevated troponin r/o ACS h/o COPD ? exacerbation HTN urgency Cardiomyopathy L AICD anemia of chronic kidney disease Hx of CVA Plan Plan: Low H&H - consider transfusion HD next 06/16 Transfused Phos binders BP meds adjustment Optimize cardiac status per orders Subjective ROS Limited/Unobtainable: No Constitutional: Reports: malaise, weakness Objective Objective Last 24 Hour Vital Signs Date Time Temp Pulse Resp B/P (MAP) Pulse Ox O2 Delivery O2 Flow Rate FiO2 06/16/17 10:08 98.1 06/16/17 10:04 98.1 06/16/17 08:00 98.1 83 20 154/71 95 Venturi Mask 15.0 98.1 06/16/17 07:20 Venturi Mask 12.0 50 06/16/17 07:20 95 Venturi Mask 12.0 50 06/16/17 05:12 82 20 92 Facial 60 06/16/17 04:30 97.7 85 20 115/73 98 Venturi Mask 15.0 97.7 06/16/17 04:08 86 06/16/17 00:23 92 06/16/17 00:07 82 06/15/17 23:25 97.7 83 20 111/73 96 Venturi Mask 15.0 97.7 06/15/17 21:30 74 20 111/60 06/15/17 20:41 70 97/58 06/15/17 20:30 97.3 70 20 97/58 96 Non-Rebreather 97.3 06/15/17 20:00 97.3 70 20 97/58 96 Non-Rebreather 15.0 100 97.3 06/15/17 19:18 Non-Rebreather 15.0 100 06/15/17 19:18 98 Non-Rebreather 15.0 100 06/15/17 18:11 97.3 06/15/17 17:12 115/66 06/15/17 17:12 97.3 06/15/17 17:10 97.3 72 20 115/66 95 Non-Rebreather 15.0 100 97.3 06/15/17 16:18 71 06/15/17 12:25 140/67 06/15/17 11:50 70 06/15/17 11:35 97.3 72 20 140/67 97 Non-Rebreather 15.0 100 97.3 Intake and Output 06/15/17 06/16/17 19:00 07:00 Intake Total 410 ml 550 ml Balance 410 ml 550 ml IV Total 410 ml 550 ml Laboratory Tests 06/16/17 04:00: White Blood Count 5.4, Red Blood Count 2.45L, Hemoglobin 7.2L, Hematocrit 23.1L , Mean Corpuscular Volume 95, Mean Corpuscular Hemoglobin 29.6, Mean Corpuscular Hemoglobin Concent 31.3L, Red Cell Distribution Width 18.9H, Platelet Count 96L, Mean Platelet Volume 8.0, Neutrophils (%) (Auto) , Lymphocytes (%) (Auto) , Monocytes (%) (Auto) , Eosinophils (%) (Auto) , Basophils (%) (Auto) , Differential Total Cells Counted 100, Neutrophils % ( Manual) 67, Lymphocytes % (Manual) 11L, Monocytes % (Manual) 18H, Eosinophils % (Manual) 3, Basophils % (Manual) 0, Band Neutrophils 1, Platelet Estimate DecreasedL, Platelet Morphology Normal, Hypochromasia 1+, Anisocytosis 1+, Sodium Level 137, Potassium Level 4.0, Chloride Level 96L, Carbon Dioxide Level 35H, Anion Gap 6, Blood Urea Nitrogen 46H, Creatinine 11.2H, Estimat Glomerular Filtration Rate 5.7, Glucose Level 77, Calcium Level 8.8, Magnesium Level 2.0, Total Bilirubin 1.3H, Direct Bilirubin 0.7H, Aspartate Amino Transf (AST/SGOT) 55H, Alanine Aminotransferase (ALT/SGPT) 226H, Alkaline Phosphatase 111, Troponin I 0.067H, Pro-B-Type Natriuretic Peptide 54942I, Total Protein 6.5, Albumin 2.1L, Globulin 4.4, Albumin/Globulin Ratio 0.5L Height (Feet): 5 Height (Inches): 7.00 Weight (Pounds): 214 General Appearance: no apparent distress Respiratory/Chest: decreased breath sounds Abdomen: distended Objective no change LIAM MONTEOLNGO Jun 16, 2017 10:19
--- NOTE | 2017-06-16 11:04 | Infectious Diseases Prog Note ---
Assessment/Plan Assessment/Plan Pneumonia with possible cavitary lesion/hemoptysis. SCx: Neg ( m/l necrotizing Pneum, less likely fungal and doubt TB ) Rsp status improved up to yesterday but on 06/[address] his condition worsen T-SPOT :Neg AFB x 3 : Neg MTB PCR x2 : neg cryptococcus Ag : neg CT chest 06/15: Slightly smaller (6 cm diameter ) but mostly unchanged cavitary lesion in the right lung, previously thought to represent a cavitating inflammatory process. Lung abscess is certainly a possibility. Fairly extensive bilateral pulmonary parenchymal consolidation, slightly increased from previous exam of 06/05/2017. Likely a combination of pulmonary edema and pneumonia. Small right and trace left pleural effusion, new/increased from the previous study. CT 06/05: 7.8 x 5.3 x 6.6 cm dense opacity in the posterior inferior right upper lobe with a central cavitation. Chest x-ray : right mid lung infiltrate, possible cavitation Rule out tuberculosis, fungal infection, or necrotizing pneumonia. CRP 14 Influenza negative Low-grade fever, SP Status post leukocytosis. Transaminitis , probably 2/2 Hep C cirrhosis -CT abd/p: Evidence of hepatic cirrhosis. Hepatosplenomegaly. evidence of generalized anasarca, with pleural fluid and generalized subcutaneous edema. Cholelithiasis, also previously reported. Possible diverticulosis. No evidence of diverticulitis US Abd : Cholelithiasis. There is gallbladder wall thickening, likely related to hemodynamic abnormalities Splenomegaly. Evidence of hepatic cirrhosis HIV : NEG Hep Panel B neg , C Ab : +ve , VL p leukopenia and TCP 2/2 splenomegaly Seizure disorder History of CVA History of pacemaker placement Hyperlipidemia Hypertension COPD/asthma End-stage renal disease, on hemodialysis Diabetes Anxiety Anemia Echo, ejection fraction 45% to 50%. PLAN: Patient cont vancomycin day # 13/14 , cont Merrem d# 4 , and AmphoB #3( possible Aspergillosis) Continue empiric Ethambutol , amikacin d# 3 and Levaquin d# 4 ( TB Control recs to start TB Rx, doubt that this is needed at his time pt has pt improved initially, wups so far neg for TB, has increased of LFT , ) SP 3/0 SP Zosyn d# 10 SP 3/4 SP Zithromax D# 6 f/u sputum culture (, fungal, and AFB x3). f/u Coccidioidal ,Galactomannan and Fungitell. -Check Histoplasma ag urine and ab, blastomycies ab Airborne isolation for now may need BAL , will defer this to Pul team f/u Hep C PCR may need JIMY ro SBE w emboli to lung ( hx of AICD ) Subjective Allergies: Coded Allergies: No Known Allergies (Unverified , 10/24/15) Subjective afebrile no leukocytosis LFTs improving Objective Vital Signs Last 24 Hour Vital Signs Date Time Temp Pulse Resp B/P (MAP) Pulse Ox O2 Delivery O2 Flow Rate FiO2 06/16/17 10:08 98.1 06/16/17 10:04 98.1 06/16/17 08:00 98.1 83 20 154/71 95 Venturi Mask 15.0 98.1 06/16/17 08:00 84 06/16/17 07:20 Venturi Mask 12.0 50 06/16/17 07:20 95 Venturi Mask 12.0 50 06/16/17 05:12 82 20 92 Facial 60 06/16/17 04:30 97.7 85 20 115/73 98 Venturi Mask 15.0 97.7 06/16/17 04:08 86 06/16/17 00:23 92 06/16/17 00:07 82 06/15/17 23:25 97.7 83 20 111/73 96 Venturi Mask 15.0 97.7 06/15/17 21:30 74 20 111/60 06/15/17 20:41 70 97/58 06/15/17 20:30 97.3 70 20 97/58 96 Non-Rebreather 97.3 06/15/17 20:00 97.3 70 20 97/58 96 Non-Rebreather 15.0 100 97.3 06/15/17 19:18 Non-Rebreather 15.0 100 06/15/17 19:18 98 Non-Rebreather 15.0 100 06/15/17 18:11 97.3 06/15/17 17:12 115/66 06/15/17 17:12 97.3 06/15/17 17:10 97.3 72 20 115/66 95 Non-Rebreather 15.0 100 97.3 06/15/17 16:18 71 06/15/17 12:25 140/67 06/15/17 11:50 70 06/15/17 11:35 97.3 72 20 140/67 97 Non-Rebreather 15.0 100 97.3 Height (Feet): 5 Height (Inches): 7.00 Weight (Pounds): 214 Objective General Appearance: WD/WN, alert, moderate distress EENT: PERRL/EOMI, normal ENT inspection Neck: non-tender, normal alignment, supple, normal inspection Cardiovascular: normal peripheral pulses, normal rate, regular rhythm, no gallop/murmur, no JVD Respiratory/Chest: Non rebreather; respiratory distress, crackles/rales, rhonchi - bilaterally, expiratory wheezing Abdomen: normal bowel sounds, non tender, soft, no organomegaly, no mass Extremities: normal range of motion Neurologic: site head 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, no motor/sensory deficits Skin: normal pigmentation, warm/dry Laboratory Tests Test 06/16/17 04:00 White Blood Count 5.4 K/UL (4.8-10.8) Red Blood Count 2.45 M/UL (4.70-6.10) L Hemoglobin 7.2 G/DL (14.2-18.0) L Hematocrit 23.1 % (42.0-52.0) L Mean Corpuscular Volume 95 FL (80-99) Mean Corpuscular Hemoglobin 29.6 PG (27.0-31.0) Mean Corpuscular Hemoglobin Concent 31.3 G/DL (32.0-36.0) L Red Cell Distribution Width 18.9 % (11.6-14.8) H Platelet Count 96 K/UL (150-450) L Mean Platelet Volume 8.0 FL (6.5-10.1) Neutrophils (%) (Auto) % (45.0-75.0) Lymphocytes (%) (Auto) % (20.0-45.0) Monocytes (%) (Auto) % (1.0-10.0) Eosinophils (%) (Auto) % (0.0-3.0) Basophils (%) (Auto) % (0.0-2.0) Differential Total Cells Counted 100 Neutrophils % (Manual) 67 % (45-75) Lymphocytes % (Manual) 11 % (20-45) L Monocytes % (Manual) 18 % (1-10) H Eosinophils % (Manual) 3 % (0-3) Basophils % (Manual) 0 % (0-2) Band Neutrophils 1 % (0-8) Platelet Estimate Decreased L Platelet Morphology Normal Hypochromasia 1+ Anisocytosis 1+ Sodium Level 137 MMOL/L (136-145) Potassium Level 4.0 MMOL/L (3.5-5.1) Chloride Level 96 MMOL/L (98-107) L Carbon Dioxide Level 35 MMOL/L (21-32) H Anion Gap 6 mmol/L (5-15) Blood Urea Nitrogen 46 mg/dL (7-18) H Creatinine 11.2 MG/DL (0.55-1.30) H Estimat Glomerular Filtration Rate 5.7 mL/min (>60) Glucose Level 77 MG/DL (74-106) Calcium Level 8.8 MG/DL (8.5-10.1) Magnesium Level 2.0 MG/DL (1.8-2.4) Total Bilirubin 1.3 MG/DL (0.2-1.0) H Direct Bilirubin 0.7 MG/DL (0.0-0.3) H Aspartate Amino Transf (AST/SGOT) 55 U/L (15-37) H Alanine Aminotransferase (ALT/SGPT) 226 U/L (12-78) H Alkaline Phosphatase 111 U/L (46-116) Troponin I 0.067 ng/mL (0.000-0.056) Pro-B-Type Natriuretic Peptide 76368 pg/mL (0-125) H Total Protein 6.5 G/DL (6.4-8.2) Albumin 2.1 G/DL (3.4-5.0) L Globulin 4.4 g/dL Albumin/Globulin Ratio 0.5 (1.0-2.7) L Current Medications Medications (Trade) Dose Ordered Sig/Jose Route PRN Reason Start Time Stop Time Status Last Admin Dose Admin Acetaminophen (Tylenol) 650 mg Q4H PRN RECTAL Mild Pain (Pain Scale 1-3) 06/14/17 20:30 07/09/17 16:29 Alprazolam (Xanax) 2 mg DAILY PRN ORAL Agitation 06/14/17 21:00 06/21/17 20:59 06/15/17 12:24 Alprazolam (Xanax) 2 mg Q12HR ORAL 06/14/17 21:00 06/20/17 20:59 06/16/17 10:03 Amikacin Sulfate 1000 mg/Sodium Chloride 114 ml @ 228 mls/hr FRI-FRI-FRI IV 06/18/17 21:00 06/25/17 20:59 Amphotericin B 50 mg/Dextrose 500 ml @ 100 mls/hr Q24H IV 06/15/17 18:00 06/19/17 17:59 06/15/17 17:48 Carisoprodol (Soma) 350 mg BID ORAL 06/15/17 09:00 07/15/17 08:59 06/16/17 10:08 Carisoprodol (Soma) 350 mg Q6H PRN ORAL MUSCLE SPASMS 06/14/17 21:00 07/14/17 20:59 Carvedilol (Coreg) 25 mg EVERY 12 HOURS ORAL 06/14/17 21:00 07/04/17 11:29 06/15/17 08:15 Chlorhexidine Gluconate (Mireille-Hex 2%) 1 applic DAILY@2000 TOPIC 06/15/17 20:00 07/05/17 19:59 Clonidine HCl (Catapres Tab) 0.1 mg Q4H PRN ORAL bp over 160 syst 06/14/17 20:30 07/03/17 16:29 Dextrose 1,000 ml @ 50 mls/hr Q20H IV 06/14/17 20:30 07/14/17 11:44 06/15/17 16:30 Dextrose (Dextrose 50%) STAT PRN IV Hypoglycemia 06/14/17 21:00 07/14/17 20:59 Docusate Sodium (Colace) 100 mg THREE TIMES A DAY ORAL 06/15/17 09:00 07/03/17 17:59 06/16/17 10:03 Ethambutol HCl (Myambutol) 2,000 mg 3XW ORAL 06/16/17 09:00 07/14/17 17:59 06/16/17 10:02 Levofloxacin 100 ml @ 100 mls/hr Q48H IVPB 06/15/17 20:00 06/22/17 19:59 06/15/17 20:39 Lisinopril (Prinivil) 20 mg BID ORAL 06/15/17 09:00 07/04/17 08:59 06/15/17 17:12 Meperidine HCl (Demerol) 25 mg ONCE PRN IM RIGOR WITH AMPHOTERICIN B 06/14/17 20:30 06/21/17 20:29 Meropenem 500 mg/ Sodium Chloride 55 ml @ 110 mls/hr Q24H IV 06/17/17 00:00 06/22/17 00:00 Morphine Sulfate (Morphine Sulfate) 2 mg Q4H PRN IVP BREAKTHROUGH CHEST PAIN 06/14/17 23:00 06/17/17 06:59 06/16/17 10:04 Nitroglycerin (Ntg) 0.4 mg Q5M PRN SL Prn Chest Pain 06/14/17 20:30 07/04/17 09:14 Nitroglycerin (Ntg) 1 patch Q24H TDERMAL 06/15/17 11:30 07/04/17 11:29 06/15/17 12:25 Ondansetron HCl (Zofran) 4 mg Q6H PRN IVP Nausea & Vomiting 06/14/17 21:00 07/14/17 20:59 Pantoprazole (Protonix) 40 mg ACBREAKFAST ORAL 06/15/17 06:30 07/15/17 06:29 06/16/17 06:33 Polyethylene Glycol (Miralax) 17 gm DAILYPRN PRN ORAL Constipation 06/14/17 21:00 07/14/17 20:59 Promethazine HCl/ Codeine (Phenergan with Codeine) 5 ml Q4H PRN ORAL For Cough 06/14/17 20:30 07/05/17 08:29 Sevelamer Carbonate (Renvela) 2,400 mg THREE TIMES A DAY ORAL 06/15/17 09:00 07/09/17 12:59 06/16/17 10:03 Vancomycin HCl (Vanco rx to dose) 1 ea DAILY PRN MISC Per rx protocol 06/15/17 09:00 07/04/17 12:44 Aleja Crocker M.D. Jun 16, 2017 11:04
--- NOTE | 2017-06-16 11:46 | Diagnostic Imaging Report ---
Indication: Dyspnea Technique: One view of the chest Comparison: 06/13/2017 Findings: Stable right lung lesion with cavitation. Generalized interstitial and airspace infiltrates versus edema persist, unchanged. Right jugular central venous catheter, left chest AICD remains. The heart remains markedly enlarged. There is a right-sided pleural effusion again demonstrated. Findings are overall unchanged Impression: Unchanged, over one day, findings as above.
[2017-06-16 12:00] VITALS: BP 136/63
[2017-06-16] MEDS: Nitroglycerin Patch 0.4mg TDERMAL SCH (12:18)
[2017-06-16 16:00] VITALS: BP 128/80
[2017-06-16 17:00] VITALS: BP 148/92
--- NOTE | 2017-06-16 17:37 | Pulmonology Progress Note ---
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 Sputum shows only charli hold heparin for low PLT on anti TB meds f/u wbc and cultures Subjective ROS Limited/Unobtainable: No Allergies: Coded Allergies: No Known Allergies (Unverified , 10/24/15) Objective Last 24 Hour Vital Signs Date Time Temp Pulse Resp B/P (MAP) Pulse Ox O2 Delivery O2 Flow Rate FiO2 06/16/17 16:00 98.1 74 20 128/80 95 Venturi Mask 15.0 98.1 06/16/17 16:00 79 06/16/17 12:18 135/62 06/16/17 12:00 98.0 80 19 136/63 94 Venturi Mask 15.0 98.0 06/16/17 12:00 80 06/16/17 10:34 98.1 06/16/17 10:34 98.1 06/16/17 10:08 98.1 06/16/17 10:04 98.1 06/16/17 08:00 98.1 83 20 154/71 95 Venturi Mask 15.0 98.1 06/16/17 08:00 84 06/16/17 07:20 Venturi Mask 12.0 50 06/16/17 07:20 95 Venturi Mask 12.0 50 06/16/17 05:12 82 20 92 Facial 60 06/16/17 04:30 97.7 85 20 115/73 98 Venturi Mask 15.0 97.7 06/16/17 04:08 86 06/16/17 00:23 92 06/16/17 00:07 82 06/15/17 23:25 97.7 83 20 111/73 96 Venturi Mask 15.0 97.7 06/15/17 21:30 74 20 111/60 06/15/17 20:41 70 97/58 06/15/17 20:30 97.3 70 20 97/58 96 Non-Rebreather 97.3 06/15/17 20:00 97.3 70 20 97/58 96 Non-Rebreather 15.0 100 97.3 06/15/17 19:18 Non-Rebreather 15.0 100 06/15/17 19:18 98 Non-Rebreather 15.0 100 Intake and Output 06/15/17 06/16/17 19:00 07:00 Intake Total 410 ml 600 ml Balance 410 ml 600 ml IV Total 410 ml 600 ml Objective General Appearance: WD/WN HEENT: normocephalic, atraumatic, anicteric Respiratory/Chest: loud rhonchi Cardiovascular: normal peripheral pulses, normal rate, regular rhythm Abdomen: normal bowel sounds, soft, non tender, no organomegaly Genitourinary: normal external genitalia Extremities: no cyanosis Skin: no rash, no lesions Neurologic/Psychiatric: bale coverer 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, no motor/sensory deficits Lymphatic: no neck adenopathy, no groin adenopathy Laboratory Tests 06/16/17 04:00: White Blood Count 5.4, Red Blood Count 2.45L, Hemoglobin 7.2L, Hematocrit 23.1L , Mean Corpuscular Volume 95, Mean Corpuscular Hemoglobin 29.6, Mean Corpuscular Hemoglobin Concent 31.3L, Red Cell Distribution Width 18.9H, Platelet Count 96L, Mean Platelet Volume 8.0, Neutrophils (%) (Auto) , Lymphocytes (%) (Auto) , Monocytes (%) (Auto) , Eosinophils (%) (Auto) , Basophils (%) (Auto) , Differential Total Cells Counted 100, Neutrophils % ( Manual) 67, Lymphocytes % (Manual) 11L, Monocytes % (Manual) 18H, Eosinophils % (Manual) 3, Basophils % (Manual) 0, Band Neutrophils 1, Platelet Estimate DecreasedL, Platelet Morphology Normal, Hypochromasia 1+, Anisocytosis 1+, Sodium Level 137, Potassium Level 4.0, Chloride Level 96L, Carbon Dioxide Level 35H, Anion Gap 6, Blood Urea Nitrogen 46H, Creatinine 11.2H, Estimat Glomerular Filtration Rate 5.7, Glucose Level 77, Calcium Level 8.8, Magnesium Level 2.0, Total Bilirubin 1.3H, Direct Bilirubin 0.7H, Aspartate Amino Transf (AST/SGOT) 55H, Alanine Aminotransferase (ALT/SGPT) 226H, Alkaline Phosphatase 111, Troponin I 0.067H, Pro-B-Type Natriuretic Peptide 83532D, Total Protein 6.5, Albumin 2.1L, Globulin 4.4, Albumin/Globulin Ratio 0.5L Current Medications Medications (Trade) Dose Ordered Sig/Jose Route PRN Reason Start Time Stop Time Status Last Admin Dose Admin Acetaminophen (Tylenol) 650 mg Q4H PRN RECTAL Mild Pain (Pain Scale 1-3) 06/14/17 20:30 07/09/17 16:29 Alprazolam (Xanax) 2 mg DAILY PRN ORAL Agitation 06/14/17 21:00 06/21/17 20:59 06/15/17 12:24 Alprazolam (Xanax) 2 mg Q12HR ORAL 06/14/17 21:00 06/20/17 20:59 06/16/17 10:03 Amikacin Sulfate 1000 mg/Sodium Chloride 114 ml @ 228 mls/hr FRI- IV 06/18/17 21:00 06/25/17 20:59 Amphotericin B 50 mg/Dextrose 500 ml @ 100 mls/hr Q24H IV 06/15/17 18:00 06/19/17 17:59 06/15/17 17:48 Carisoprodol (Soma) 350 mg BID ORAL 06/15/17 09:00 07/15/17 08:59 06/16/17 10:08 Carisoprodol (Soma) 350 mg Q6H PRN ORAL MUSCLE SPASMS 06/14/17 21:00 07/14/17 20:59 Carvedilol (Coreg) 25 mg EVERY 12 HOURS ORAL 06/14/17 21:00 07/04/17 11:29 06/15/17 08:15 Chlorhexidine Gluconate (Mireille-Hex 2%) 1 applic DAILY@2000 TOPIC 06/15/17 20:00 07/05/17 19:59 Clonidine HCl (Catapres Tab) 0.1 mg Q4H PRN ORAL bp over 160 syst 06/14/17 20:30 07/03/17 16:29 Dextrose 1,000 ml @ 50 mls/hr Q20H IV 06/14/17 20:30 07/14/17 11:44 06/16/17 12:23 Dextrose (Dextrose 50%) STAT PRN IV Hypoglycemia 06/14/17 21:00 07/14/17 20:59 Docusate Sodium (Colace) 100 mg THREE TIMES A DAY ORAL 06/15/17 09:00 07/03/17 17:59 06/16/17 12:17 Ethambutol HCl (Myambutol) 2,000 mg 3XW ORAL 06/16/17 09:00 07/14/17 17:59 06/16/17 10:02 Levofloxacin 100 ml @ 100 mls/hr Q48H IVPB 06/15/17 20:00 06/22/17 19:59 06/15/17 20:39 Lisinopril (Prinivil) 20 mg BID ORAL 06/15/17 09:00 07/04/17 08:59 06/15/17 17:12 Meperidine HCl (Demerol) 25 mg ONCE PRN IM RIGOR WITH AMPHOTERICIN B 06/14/17 20:30 06/21/17 20:29 Meropenem 500 mg/ Sodium Chloride 55 ml @ 110 mls/hr Q24H IV 06/17/17 00:00 06/22/17 00:00 Morphine Sulfate (Morphine Sulfate) 2 mg Q4H PRN IVP BREAKTHROUGH CHEST PAIN 06/14/17 23:00 06/17/17 06:59 06/16/17 10:04 Nitroglycerin (Ntg) 0.4 mg Q5M PRN SL Prn Chest Pain 06/14/17 20:30 07/04/17 09:14 Nitroglycerin (Ntg) 1 patch Q24H TDERMAL 06/15/17 11:30 07/04/17 11:29 06/16/17 12:18 Ondansetron HCl (Zofran) 4 mg Q6H PRN IVP Nausea & Vomiting 06/14/17 21:00 07/14/17 20:59 Pantoprazole (Protonix) 40 mg ACBREAKFAST ORAL 06/15/17 06:30 07/15/17 06:29 06/16/17 06:33 Polyethylene Glycol (Miralax) 17 gm DAILYPRN PRN ORAL Constipation 06/14/17 21:00 07/14/17 20:59 Promethazine HCl/ Codeine (Phenergan with Codeine) 5 ml Q4H PRN ORAL For Cough 06/14/17 20:30 07/05/17 08:29 Sevelamer Carbonate (Renvela) 2,400 mg THREE TIMES A DAY ORAL 06/15/17 09:00 07/09/17 12:59 06/16/17 12:17 Vancomycin HCl (Vanco rx to dose) 1 ea DAILY PRN MISC Per rx protocol 06/15/17 09:00 07/04/17 12:44 MAICO SYED Jun 16, 2017 17:37
[2017-06-16] MEDS ORDERED: Nitroglycerin Subl 0.4mg tab SL PRN (18:15)
--- NOTE | 2017-06-16 18:15 | General Surgery Progress Note ---
General Surgery-Progress Note Subjective Additional Comments resting comfortable. no n/v/f/c. still complaining of right sided abdominal discomfort. Objective Last 24 Hour Vital Signs Date Time Temp Pulse Resp B/P (MAP) Pulse Ox O2 Delivery O2 Flow Rate FiO2 06/16/17 16:00 98.1 74 20 128/80 95 Venturi Mask 15.0 98.1 06/16/17 16:00 79 06/16/17 12:18 135/62 06/16/17 12:00 98.0 80 19 136/63 94 Venturi Mask 15.0 98.0 06/16/17 12:00 80 06/16/17 10:34 98.1 06/16/17 10:34 98.1 06/16/17 10:08 98.1 06/16/17 10:04 98.1 06/16/17 08:00 98.1 83 20 154/71 95 Venturi Mask 15.0 98.1 06/16/17 08:00 84 06/16/17 07:20 Venturi Mask 12.0 50 06/16/17 07:20 95 Venturi Mask 12.0 50 06/16/17 05:12 82 20 92 Facial 60 06/16/17 04:30 97.7 85 20 115/73 98 Venturi Mask 15.0 97.7 06/16/17 04:08 86 06/16/17 00:23 92 06/16/17 00:07 82 06/15/17 23:25 97.7 83 20 111/73 96 Venturi Mask 15.0 97.7 06/15/17 21:30 74 20 111/60 06/15/17 20:41 70 97/58 06/15/17 20:30 97.3 70 20 97/58 96 Non-Rebreather 97.3 06/15/17 20:00 97.3 70 20 97/58 96 Non-Rebreather 15.0 100 97.3 06/15/17 19:18 Non-Rebreather 15.0 100 06/15/17 19:18 98 Non-Rebreather 15.0 100 I&O Intake and Output 06/15/17 06/16/17 19:00 07:00 Intake Total 410 ml 600 ml Balance 410 ml 600 ml IV Total 410 ml 600 ml Cardiovascular: RSR Respiratory: clear Abdomen: soft, tenderness, present bowel sounds, other - right sided discomfort with minimal palpation noted in right upper/lower/flank area. Laboratory Tests Test 06/16/17 04:00 White Blood Count 5.4 K/UL (4.8-10.8) Red Blood Count 2.45 M/UL (4.70-6.10) L Hemoglobin 7.2 G/DL (14.2-18.0) L Hematocrit 23.1 % (42.0-52.0) L Mean Corpuscular Volume 95 FL (80-99) Mean Corpuscular Hemoglobin 29.6 PG (27.0-31.0) Mean Corpuscular Hemoglobin Concent 31.3 G/DL (32.0-36.0) L Red Cell Distribution Width 18.9 % (11.6-14.8) H Platelet Count 96 K/UL (150-450) L Mean Platelet Volume 8.0 FL (6.5-10.1) Neutrophils (%) (Auto) % (45.0-75.0) Lymphocytes (%) (Auto) % (20.0-45.0) Monocytes (%) (Auto) % (1.0-10.0) Eosinophils (%) (Auto) % (0.0-3.0) Basophils (%) (Auto) % (0.0-2.0) Differential Total Cells Counted 100 Neutrophils % (Manual) 67 % (45-75) Lymphocytes % (Manual) 11 % (20-45) L Monocytes % (Manual) 18 % (1-10) H Eosinophils % (Manual) 3 % (0-3) Basophils % (Manual) 0 % (0-2) Band Neutrophils 1 % (0-8) Platelet Estimate Decreased L Platelet Morphology Normal Hypochromasia 1+ Anisocytosis 1+ Sodium Level 137 MMOL/L (136-145) Potassium Level 4.0 MMOL/L (3.5-5.1) Chloride Level 96 MMOL/L (98-107) L Carbon Dioxide Level 35 MMOL/L (21-32) H Anion Gap 6 mmol/L (5-15) Blood Urea Nitrogen 46 mg/dL (7-18) H Creatinine 11.2 MG/DL (0.55-1.30) H Estimat Glomerular Filtration Rate 5.7 mL/min (>60) Glucose Level 77 MG/DL (74-106) Calcium Level 8.8 MG/DL (8.5-10.1) Magnesium Level 2.0 MG/DL (1.8-2.4) Total Bilirubin 1.3 MG/DL (0.2-1.0) H Direct Bilirubin 0.7 MG/DL (0.0-0.3) H Aspartate Amino Transf (AST/SGOT) 55 U/L (15-37) H Alanine Aminotransferase (ALT/SGPT) 226 U/L (12-78) H Alkaline Phosphatase 111 U/L (46-116) Troponin I 0.067 ng/mL (0.000-0.056) Pro-B-Type Natriuretic Peptide 51702 pg/mL (0-125) H Total Protein 6.5 G/DL (6.4-8.2) Albumin 2.1 G/DL (3.4-5.0) L Globulin 4.4 g/dL Albumin/Globulin Ratio 0.5 (1.0-2.7) L Plan Problems: (1) Intractable abdominal pain Assessment & Plan: 57M with abdominal pain. elevated lft's and ultrasound reviewed. has liver cirrhosis, ascites, and gallbladder findings on ultrasound likely secondary to intrinsic liver disease. on exam his abdominal pain is fairly superficial and around this right abd upper and lower and right flank. he has edema and thickening of the right subcutaneous tissues as compared to the left. possible abscess vs cellulitis? Ultrasound findings: Impression: Ascites Evidence of hepatic cirrhosis Cholelithiasis. There is gallbladder wall thickening, likely related to hemodynamic abnormalities related to the hepatic abnormality, particularly as this is evident on the prior exam of 2 years earlier. However, acute cholecystitis cannot be completely ruled out, and hepatobiliary scanning is recommended if there is high clinical suspicion CT findings: Impression: Evidence of hepatic cirrhosis. Hepatosplenomegaly Ascites. There is also evidence of generalized anasarca, with pleural fluid and generalized subcutaneous edema Cholelithiasis, also previously reported Possible diverticulosis. No evidence of diverticulitis Nonvisualized appendix. No evidence of appendicitis Left renal cysts. Subcentimeter right lobe hepatic and bilateral renal lesions, too small to characterize, most likely benign simple cysts. No further follow-up necessary Bilateral pleural effusions and parenchymal consolidation. LFT's improving. but still no clear explanation as to acute elevation in LFT' s. still with Right sided abdominal pain CT A/P reviewed. -given exam, radiological findings, history, unlikely to be acute cholecystitis. exam is with discomfort in right upper/lower/flank region. ultrasound findings similar to that of two years ago. pain could be from hepatomegaly? or even from significant subcutaneous edema/anasarca in that area. -no acute surgical intervention recommended at this time. -cont abx -will follow with recs. Ever Parham Jun 16, 2017 18:15
[2017-06-16] MEDS ORDERED: Promethazine/Codeine 5ml UD ORAL PRN (18:30)
[2017-06-16] MEDS ORDERED: Miralax 17gm pkt ORAL PRN (18:30)
[2017-06-16] MEDS ORDERED: Acetaminophen 650 MG SUPP RECTAL PRN (19:00)
[2017-06-16] MEDS ORDERED: Meperidine 50mg/ml Inj(FOR RIGORS ONLY) IM PRN (19:00)
[2017-06-16] MEDS ORDERED: Morphine Sulfate 2mg/ml Inj IVP PRN (19:00)
--- NOTE | 2017-06-16 19:16 | Internal Med Progress Note ---
Subjective Date of Service: Jun 16, 2017 Physician Name Pires,Zoey Attending Physician Chaitanya Weinstein MD Current Medications Medications (Trade) Dose Ordered Sig/Jose Route PRN Reason Start Time Stop Time Status Last Admin Dose Admin Acetaminophen (Tylenol) 650 mg Q4H PRN RECTAL Mild Pain (Pain Scale 1-3) 06/16/17 19:00 07/09/17 18:59 Alprazolam (Xanax) 2 mg DAILYPRN PRN ORAL Agitation 06/16/17 18:45 06/23/17 18:44 Alprazolam (Xanax) 2 mg Q12HR ORAL 06/16/17 21:00 06/20/17 20:59 Amikacin Sulfate 1000 mg/Sodium Chloride 114 ml @ 228 mls/hr FRI-FRI-FRI IV 06/18/17 21:00 06/25/17 20:59 Amphotericin B 50 mg/Dextrose 500 ml @ 100 mls/hr Q24H IV 06/16/17 20:00 06/21/17 19:59 Carisoprodol (Soma) 350 mg BID ORAL 06/17/17 20:00 07/15/17 19:59 Carisoprodol (Soma) 350 mg Q6H PRN ORAL MUSCLE SPASMS 06/16/17 19:00 07/14/17 18:59 Carvedilol (Coreg) 25 mg EVERY 12 HOURS ORAL 06/16/17 21:00 07/04/17 11:29 Chlorhexidine Gluconate (Mireille-Hex 2%) 1 applic DAILY@2000 TOPIC 06/16/17 20:00 07/05/17 19:59 Clonidine HCl (Catapres Tab) 0.1 mg Q4H PRN ORAL bp over 160 syst 06/16/17 19:00 07/03/17 18:59 Dextrose 1,000 ml @ 50 mls/hr Q20H IV 06/16/17 19:00 07/14/17 18:59 06/16/17 18:44 Dextrose (Dextrose 50%) STAT PRN IV Hypoglycemia 06/16/17 19:00 07/14/17 18:59 Docusate Sodium (Colace) 100 mg THREE TIMES A DAY ORAL 06/17/17 20:00 07/03/17 19:59 Ethambutol HCl (Myambutol) 2,000 mg 3XW ORAL 06/18/17 09:00 07/14/17 17:59 Levofloxacin 100 ml @ 100 mls/hr Q48H IVPB 06/17/17 20:00 06/22/17 19:59 Lisinopril (Prinivil) 20 mg BID ORAL 06/17/17 09:00 07/04/17 08:59 Meperidine HCl (Demerol) 25 mg ONCE PRN IM RIGOR AFTER AMPHO DOSE 06/16/17 19:00 06/23/17 18:59 Meropenem 500 mg/ Sodium Chloride 55 ml @ 110 mls/hr Q24H IV 06/17/17 00:00 06/22/17 00:00 Morphine Sulfate (Morphine Sulfate) 2 mg Q4H PRN IVP BREAKTHROUGH CHEST PAIN 06/16/17 19:00 06/17/17 06:59 Nitroglycerin (Ntg) 0.4 mg Q5M PRN SL Prn Chest Pain 06/16/17 18:15 07/04/17 09:14 Nitroglycerin (Ntg) 1 patch Q24H TDERMAL 06/17/17 11:30 07/04/17 11:29 Ondansetron HCl (Zofran) 4 mg Q6H PRN IVP Nausea & Vomiting 06/16/17 18:30 07/14/17 18:29 Pantoprazole (Protonix) 40 mg ACBREAKFAST ORAL 06/17/17 06:30 07/15/17 06:29 Polyethylene Glycol (Miralax) 17 gm DAILYPRN PRN ORAL Constipation 06/16/17 18:30 07/14/17 18:29 Promethazine HCl/ Codeine (Phenergan with Codeine) 5 ml Q4H PRN ORAL For Cough 06/16/17 18:30 07/05/17 18:29 Sevelamer Carbonate (Renvela) 2,400 mg THREE TIMES A DAY ORAL 06/16/17 18:45 07/16/17 18:44 Vancomycin HCl (Vanco rx to dose) 1 ea DAILY PRN MISC Per rx protocol 06/16/17 19:00 07/16/17 18:59 Allergies: Coded Allergies: No Known Allergies (Unverified , 10/24/15) ROS Limited/Unobtainable: No Constitutional: Reports: no symptoms HEENT: Reports: no symptoms Cardiovascular: Reports: no symptoms Respiratory: Reports: shortness of breath Gastrointestinal/Abdominal: Reports: no symptoms Genitourinary: Reports: no symptoms Subjective 57 YO M admitted with chest pain and shortness of breath. Now pneumonia and candelaria heart failure. Tolerating venturi mask. Cover for Shaggy Weinstein. Objective Last Vital Signs Date Time Temp Pulse Resp B/P (MAP) Pulse Ox O2 Delivery O2 Flow Rate FiO2 06/16/17 16:00 98.1 74 20 128/80 95 Venturi Mask 15.0 98.1 06/16/17 07:20 50 Laboratory Tests Test 06/16/17 04:00 White Blood Count 5.4 K/UL (4.8-10.8) Red Blood Count 2.45 M/UL (4.70-6.10) L Hemoglobin 7.2 G/DL (14.2-18.0) L Hematocrit 23.1 % (42.0-52.0) L Mean Corpuscular Volume 95 FL (80-99) Mean Corpuscular Hemoglobin 29.6 PG (27.0-31.0) Mean Corpuscular Hemoglobin Concent 31.3 G/DL (32.0-36.0) L Red Cell Distribution Width 18.9 % (11.6-14.8) H Platelet Count 96 K/UL (150-450) L Mean Platelet Volume 8.0 FL (6.5-10.1) Neutrophils (%) (Auto) % (45.0-75.0) Lymphocytes (%) (Auto) % (20.0-45.0) Monocytes (%) (Auto) % (1.0-10.0) Eosinophils (%) (Auto) % (0.0-3.0) Basophils (%) (Auto) % (0.0-2.0) Differential Total Cells Counted 100 Neutrophils % (Manual) 67 % (45-75) Lymphocytes % (Manual) 11 % (20-45) L Monocytes % (Manual) 18 % (1-10) H Eosinophils % (Manual) 3 % (0-3) Basophils % (Manual) 0 % (0-2) Band Neutrophils 1 % (0-8) Platelet Estimate Decreased L Platelet Morphology Normal Hypochromasia 1+ Anisocytosis 1+ Sodium Level 137 MMOL/L (136-145) Potassium Level 4.0 MMOL/L (3.5-5.1) Chloride Level 96 MMOL/L (98-107) L Carbon Dioxide Level 35 MMOL/L (21-32) H Anion Gap 6 mmol/L (5-15) Blood Urea Nitrogen 46 mg/dL (7-18) H Creatinine 11.2 MG/DL (0.55-1.30) H Estimat Glomerular Filtration Rate 5.7 mL/min (>60) Glucose Level 77 MG/DL (74-106) Calcium Level 8.8 MG/DL (8.5-10.1) Magnesium Level 2.0 MG/DL (1.8-2.4) Total Bilirubin 1.3 MG/DL (0.2-1.0) H Direct Bilirubin 0.7 MG/DL (0.0-0.3) H Aspartate Amino Transf (AST/SGOT) 55 U/L (15-37) H Alanine Aminotransferase (ALT/SGPT) 226 U/L (12-78) H Alkaline Phosphatase 111 U/L (46-116) Troponin I 0.067 ng/mL (0.000-0.056) Pro-B-Type Natriuretic Peptide 13763 pg/mL (0-125) H Total Protein 6.5 G/DL (6.4-8.2) Albumin 2.1 G/DL (3.4-5.0) L Globulin 4.4 g/dL Albumin/Globulin Ratio 0.5 (1.0-2.7) L Intake and Output 06/15/17 06/16/17 19:00 07:00 Intake Total 410 ml 600 ml Balance 410 ml 600 ml IV Total 410 ml 600 ml Objective General Appearance: WD/WN, alert, moderate distress EENT: PERRL/EOMI, normal ENT inspection Neck: non-tender, normal alignment, supple, normal inspection Cardiovascular: normal peripheral pulses, normal rate, regular rhythm, no gallop/murmur, no JVD Respiratory/Chest: Non rebreather; respiratory distress, crackles/rales, rhonchi - bilaterally, expiratory wheezing Abdomen: normal bowel sounds, non tender, soft, no organomegaly, no mass Extremities: normal range of motion Neurologic: crib attendant 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 Currently on venturi mask. See pulmonay note. (2) Pleuritic chest pain (3) Hemoptysis Assessment & Plan: Due to pneumonia (4) Pneumonia Assessment & Plan: RUL and cavitary. Concerning for TB. Await AFB cultures- see ID consult. Continue vanco and ethambutol per ID (5) Shortness of breath (6) ESRD (end stage renal disease) on dialysis Assessment & Plan: See nephrology note. Hemodialysis 06/14/17 per nephrology (7) Hyperkalemia Assessment & Plan: Due to renal failure. Hemodialysis 06/12/17 per nephrology (8) COPD (chronic obstructive pulmonary disease) (9) HTN (hypertension) Assessment & Plan: Continue coreg and lisinopril. (10) CHF (congestive heart failure) (11) Elevated troponin Assessment & Plan: ?due to renal failure? See cardiology note. (12) Intractable abdominal pain Assessment & Plan: See surgery note. Await CT abdomen Status: not improved ZOEY PIRES Jun 16, 2017 19:16
[2017-06-16] MEDS: Dyna-Hex 2% Top Sol 2oz TOPIC SCH (19:49)
[2017-06-16] MEDS: [UNRECOGNIZED DRUG - OTHER] IV SCH (19:49)
[2017-06-16] MEDS: D5W IV SCH (19:49)
[2017-06-16 20:00] VITALS: BP 142/82
--- NOTE | 2017-06-16 23:19 | General Progress Note ---
Assessment/Plan Assessment/Plan Assessment - Anemia - OB (+) Stool - R/O TB - ESRD/HD - DM - HTN - COPD - gallstones - RUQ TTP and elevated LFT - abnormal GB ultrasound - ? cholecystitis - Hepatitis C (+) Recommendations - Po as tolerated - monitor LFT - minimize meds - consider HIDA - will d/w surgery - transfuse PRN - Acid blockade - Defer EGD/Colon a this time Subjective Allergies: Coded Allergies: No Known Allergies (Unverified , 10/24/15) Subjective above noted no events overnight patient c/o (R) sided abd pain Hepatitis C Ab (+) Objective Last 24 Hour Vital Signs Date Time Temp Pulse Resp B/P (MAP) Pulse Ox O2 Delivery O2 Flow Rate FiO2 06/16/17 22:27 92 06/16/17 21:13 96 Venturi Mask 12.0 50 06/16/17 21:13 Venturi Mask 12.0 50 06/16/17 20:00 96 Venturi Mask 15.0 06/16/17 20:00 98.3 96 36 142/82 Venturi Mask 14.0 98.3 06/16/17 20:00 Venturi Mask 14.0 06/16/17 20:00 98.2 96 24 92 Venturi Mask 98.2 06/16/17 17:00 98.0 85 40 148/92 Venturi Mask 14.0 98.0 06/16/17 17:00 Venturi Mask 14.0 06/16/17 16:00 98.1 74 20 128/80 95 Venturi Mask 15.0 98.1 06/16/17 16:00 79 06/16/17 12:18 135/62 06/16/17 12:00 98.0 80 19 136/63 94 Venturi Mask 15.0 98.0 06/16/17 12:00 80 06/16/17 10:34 98.1 06/16/17 10:34 98.1 06/16/17 10:08 98.1 06/16/17 10:04 98.1 06/16/17 08:00 98.1 83 20 154/71 95 Venturi Mask 15.0 98.1 06/16/17 08:00 84 06/16/17 07:20 Venturi Mask 12.0 50 06/16/17 07:20 95 Venturi Mask 12.0 50 06/16/17 05:12 82 20 92 Facial 60 06/16/17 04:30 97.7 85 20 115/73 98 Venturi Mask 15.0 97.7 06/16/17 04:08 86 06/16/17 00:23 92 06/16/17 00:07 82 06/15/17 23:25 97.7 83 20 111/73 96 Venturi Mask 15.0 97.7 Intake and Output 06/15/17 06/16/17 19:00 07:00 Intake Total 410 ml 600 ml Balance 410 ml 600 ml IV Total 410 ml 600 ml Laboratory Tests 06/16/17 04:00: White Blood Count 5.4, Red Blood Count 2.45L, Hemoglobin 7.2L, Hematocrit 23.1L , Mean Corpuscular Volume 95, Mean Corpuscular Hemoglobin 29.6, Mean Corpuscular Hemoglobin Concent 31.3L, Red Cell Distribution Width 18.9H, Platelet Count 96L, Mean Platelet Volume 8.0, Neutrophils (%) (Auto) , Lymphocytes (%) (Auto) , Monocytes (%) (Auto) , Eosinophils (%) (Auto) , Basophils (%) (Auto) , Differential Total Cells Counted 100, Neutrophils % ( Manual) 67, Lymphocytes % (Manual) 11L, Monocytes % (Manual) 18H, Eosinophils % (Manual) 3, Basophils % (Manual) 0, Band Neutrophils 1, Platelet Estimate DecreasedL, Platelet Morphology Normal, Hypochromasia 1+, Anisocytosis 1+, Sodium Level 137, Potassium Level 4.0, Chloride Level 96L, Carbon Dioxide Level 35H, Anion Gap 6, Blood Urea Nitrogen 46H, Creatinine 11.2H, Estimat Glomerular Filtration Rate 5.7, Glucose Level 77, Calcium Level 8.8, Magnesium Level 2.0, Total Bilirubin 1.3H, Direct Bilirubin 0.7H, Aspartate Amino Transf (AST/SGOT) 55H, Alanine Aminotransferase (ALT/SGPT) 226H, Alkaline Phosphatase 111, Troponin I 0.067H, Pro-B-Type Natriuretic Peptide 47770W, Total Protein 6.5, Albumin 2.1L, Globulin 4.4, Albumin/Globulin Ratio 0.5L Height (Feet): 5 Height (Inches): 7.00 Weight (Pounds): 214 Objective WDWN AA Man NCAT supple CTA RRR Soft mildly distended, (+) RUQ TTP No edema PERCY JOYNER Jun 16, 2017 23:19
[2017-06-17] VITALS: BP 141/77
[2017-06-17] MEDS ORDERED: Meropenem 500 MG in NS 55 ML IV SCH ×4
[2017-06-17 04:07] VITALS: BP 130/77
[2017-06-17 07:04] LABS: HEMATOCRIT 23.1 % (42.0-52.0); HEMOGLOBIN 7.3 G/DL (14.2-18.0); MEAN CORPUSCULAR VOLUME 94 FL (80-99); PLATELET COUNT 106 K/UL (150-450); RED BLOOD COUNT 2.44 M/UL (4.70-6.10); RED CELL DISTRIBUTION WIDTH 18.3 % (11.6-14.8); WHITE BLOOD COUNT 6.2 K/UL (4.8-10.8)
[2017-06-17 07:42] LABS: ALANINE AMINOTRANSFERASE 183 U/L (12-78); ALBUMIN 2.2 G/DL (3.4-5.0); ALBUMIN/GLOBULIN RATIO 0.4 (1.0-2.7); ALKALINE PHOSPHATASE 158 U/L (46-116); ANION GAP 7 mmol/L (5-15); ASPARTATE AMINO TRANSFERASE 37 U/L (15-37); BILIRUBIN,TOTAL 1.3 MG/DL (0.2-1.0); BLOOD UREA NITROGEN 36 mg/dL (7-18); CARBON DIOXIDE 36 MMOL/L (21-32); CHLORIDE 95 MMOL/L (98-107); CREATININE 9.5 MG/DL (0.55-1.30); POTASSIUM 3.9 MMOL/L (3.5-5.1); SODIUM 138 MMOL/L (136-145)
[2017-06-17 07:45] LABS: BILIRUBIN,DIRECT 0.5 MG/DL (0.0-0.3)
[2017-06-17 08:07] VITALS: BP 130/66
[2017-06-17] MEDS ORDERED: Morphine Sulfate 2mg/ml Inj IVP PRN (10:45)
[2017-06-17] MEDS: Carvedilol 25mg Tab ORAL SCH ×2 (11:13→21:36)
[2017-06-17] MEDS: Nitroglycerin Patch 0.4mg TDERMAL SCH (11:15)
[2017-06-17] MEDS: ALPRAZolam 0.5mg tab ORAL SCH ×2 (11:15→21:35)
--- NOTE | 2017-06-17 11:17 | General Progress Note ---
Assessment/Plan Assessment/Plan #. Anemia secondary to chronic disease. --> S/P blood transfusion as hemoglobin dropped below goal. Currently hgb is 7.4 --> S/P abd CAT scan revealing evidence of hepatic cirrhosis. --> Hepatosplenomegaly. Ascites. There is also evidence of generalized anasarca , with pleural fluid and generalized subcutaneous edema --> Continue to closely monitor and trend cbc daily. --> Anemia workup completed and reviewed. Iron 42, TIBC 180, Ferritin 593, B12 876. --> Ferritin is >500, hgb goal is >7 --> Anemia w/u has been reviewed --> ++Occult blood. Consider GI Services and Recs. #. Anemia of kidney disease --> HD as needed per nephrology team --> Monitor closely. #. Generalized body ache related to fluid overload. #. End-stage renal disease, on hemodialysis. #. Tachycardia, to be seen by Cardiology Service, isolated T-wave and ST- segment depression in V6. --> HR has been ~80-90bpm --> S/P Chest CT -- Evidence of worsening CHF/interstitial edema. --> Monitor for improvement. #. Elevated BNP, potentially related to underlying CKD. Subjective Date patient seen: Jun 16, 2017 Constitutional: Denies: no symptoms, chills, diaphoresis, fever, malaise, weakness, other HEENT: Denies: no symptoms, eye pain, blurred vision, tearing, double vision, ear pain, ear discharge, nose pain, nose congestion, throat pain, throat swelling, mouth pain, mouth swelling, other Cardiovascular: Denies: no symptoms, chest pain, edema, irregular heart rate, lightheadedness, palpitations, syncope, other Respiratory: Denies: no symptoms, cough, orthopnea, shortness of breath, SOB with excertion, SOB at rest, sputum, stridor, wheezing, other Gastrointestinal/Abdominal: Denies: no symptoms, abdomen distended, abdominal pain, black stools, tarry stools, blood in stool, constipated, diarrhea, difficulty swallowing, nausea, poor appetite, poor fluid intake, rectal bleeding , vomiting, other Genitourinary: Denies: no symptoms, burning, discharge, frequency, flank pain, hematuria, incontinence, pain, urgency, other Neurologic/Psychiatric: Denies: no symptoms, anxiety, depressed, emotional problems, headache, numbness, paresthesia, pre-existing deficit, seizure, tingling, tremors, weakness, other Hematologic/Lymphatic: Reports: anemia Allergies: Coded Allergies: No Known Allergies (Unverified , 10/24/15) Subjective No acute events. No fever or chills. Objective Last 24 Hour Vital Signs Date Time Temp Pulse Resp B/P (MAP) Pulse Ox O2 Delivery O2 Flow Rate FiO2 06/17/17 08:15 Venturi Mask 12.0 50 06/17/17 08:15 94 Venturi Mask 12.0 50 06/17/17 08:07 98.4 85 22 130/66 100 98.4 06/17/17 05:10 98 25 94 Facial 15.0 40 06/17/17 04:08 Venturi Mask 15.0 40 06/17/17 04:07 98.1 94 24 130/77 94 Venturi Mask 98.1 06/17/17 02:56 89 06/17/17 00:00 98.0 96 24 141/77 93 Bi-pap 98.0 06/16/17 23:54 94 28 92 Facial 40 06/16/17 22:27 92 06/16/17 21:13 96 Venturi Mask 12.0 50 06/16/17 21:13 Venturi Mask 12.0 50 06/16/17 20:00 96 Venturi Mask 15.0 40 06/16/17 20:00 98.3 96 36 142/82 Venturi Mask 14.0 98.3 06/16/17 20:00 Venturi Mask 14.0 06/16/17 20:00 98.2 96 24 92 Venturi Mask 98.2 06/16/17 17:00 98.0 85 40 148/92 Venturi Mask 14.0 98.0 06/16/17 17:00 Venturi Mask 14.0 06/16/17 16:00 98.1 74 20 128/80 95 Venturi Mask 15.0 98.1 06/16/17 16:00 79 06/16/17 12:18 135/62 06/16/17 12:00 98.0 80 19 136/63 94 Venturi Mask 15.0 98.0 06/16/17 12:00 80 Intake and Output 06/16/17 06/17/17 19:00 07:00 Intake Total 450 ml 915 ml Output Total 2291 ml Balance 450 ml -1376 ml Intake Oral 60 ml IV Total 450 ml 855 ml Hemodialysis UF 2291 ml # Voids 1 Laboratory Tests 06/17/17 05:00: White Blood Count 6.2, Red Blood Count 2.44L, Hemoglobin 7.3L, Hematocrit 23.1L , Mean Corpuscular Volume 94, Mean Corpuscular Hemoglobin 29.8, Mean Corpuscular Hemoglobin Concent 31.5L, Red Cell Distribution Width 18.3H, Platelet Count 106L, Mean Platelet Volume 7.9, Neutrophils (%) (Auto) , Lymphocytes (%) (Auto) , Monocytes (%) (Auto) , Eosinophils (%) (Auto) , Basophils (%) (Auto) , Differential Total Cells Counted 100, Neutrophils % ( Manual) 55, Lymphocytes % (Manual) 14L, Monocytes % (Manual) 29H, Eosinophils % (Manual) 1, Basophils % (Manual) 0, Metamyelocytes % 1H, Band Neutrophils 0, Platelet Estimate DecreasedL, Platelet Morphology Normal, Hypochromasia 2+, Anisocytosis 2+, Sodium Level 138, Potassium Level 3.9, Chloride Level 95L, Carbon Dioxide Level 36H, Anion Gap 7, Blood Urea Nitrogen 36H, Creatinine 9.5H , Estimat Glomerular Filtration Rate 6.9, Glucose Level 84, Calcium Level 9.0, Total Bilirubin 1.3H, Direct Bilirubin 0.5H, Aspartate Amino Transf (AST/SGOT) 37, Alanine Aminotransferase (ALT/SGPT) 183H, Alkaline Phosphatase 158H, Total Protein 7.1, Albumin 2.2L, Globulin 4.9, Albumin/Globulin Ratio 0.4L, Random Vancomycin Level 22.0, Blastomyces Ab Immunodiffusion [Pending], Histoplasma Mycelial Antibody [Pending], Histoplasma Antibody w Mycelial Ag [Pending], Histoplasma Antibody with Yeast Ag [Pending], Aspergillus galactomannan Antigen [Pending] Height (Feet): 5 Height (Inches): 7.00 Weight (Pounds): 215 Respiratory/Chest: decreased breath sounds Edema: trace edema Irving Parker Jun 17, 2017 11:17
[2017-06-17] MEDS: Lisinopril 20mg tab ORAL SCH ×2 (11:27→18:20)
[2017-06-17 11:46] VITALS: BP 120/70
--- NOTE | 2017-06-17 12:22 | General Surgery Progress Note ---
General Surgery-Progress Note Subjective Symptoms: improved Additional Comments doing well. states right sided pain improved. Objective Last 24 Hour Vital Signs Date Time Temp Pulse Resp B/P (MAP) Pulse Ox O2 Delivery O2 Flow Rate FiO2 06/17/17 11:46 98.2 82 22 120/70 98 98.2 06/17/17 11:27 130/66 06/17/17 11:15 130/66 06/17/17 11:13 85 130/66 06/17/17 08:15 Venturi Mask 12.0 50 06/17/17 08:15 94 Venturi Mask 12.0 50 06/17/17 08:07 98.4 85 22 130/66 100 98.4 06/17/17 05:10 98 25 94 Facial 15.0 40 06/17/17 04:08 Venturi Mask 15.0 40 06/17/17 04:07 98.1 94 24 130/77 94 Venturi Mask 98.1 06/17/17 02:56 89 06/17/17 00:00 98.0 96 24 141/77 93 Bi-pap 98.0 06/16/17 23:54 94 28 92 Facial 40 06/16/17 22:27 92 06/16/17 21:13 96 Venturi Mask 12.0 50 06/16/17 21:13 Venturi Mask 12.0 50 06/16/17 20:00 96 Venturi Mask 15.0 40 06/16/17 20:00 98.3 96 36 142/82 Venturi Mask 14.0 98.3 06/16/17 20:00 Venturi Mask 14.0 06/16/17 20:00 98.2 96 24 92 Venturi Mask 98.2 06/16/17 17:00 98.0 85 40 148/92 Venturi Mask 14.0 98.0 06/16/17 17:00 Venturi Mask 14.0 06/16/17 16:00 98.1 74 20 128/80 95 Venturi Mask 15.0 98.1 06/16/17 16:00 79 I&O Intake and Output 06/16/17 06/17/17 19:00 07:00 Intake Total 450 ml 915 ml Output Total 2291 ml Balance 450 ml -1376 ml Intake Oral 60 ml IV Total 450 ml 855 ml Hemodialysis UF 2291 ml # Voids 1 Cardiovascular: RSR Respiratory: clear Abdomen: soft, non-tender, present bowel sounds Extremities: no tenderness, no cyanosis Laboratory Tests Test 06/17/17 05:00 White Blood Count 6.2 K/UL (4.8-10.8) Red Blood Count 2.44 M/UL (4.70-6.10) L Hemoglobin 7.3 G/DL (14.2-18.0) L Hematocrit 23.1 % (42.0-52.0) L Mean Corpuscular Volume 94 FL (80-99) Mean Corpuscular Hemoglobin 29.8 PG (27.0-31.0) Mean Corpuscular Hemoglobin Concent 31.5 G/DL (32.0-36.0) L Red Cell Distribution Width 18.3 % (11.6-14.8) H Platelet Count 106 K/UL (150-450) L Mean Platelet Volume 7.9 FL (6.5-10.1) Neutrophils (%) (Auto) % (45.0-75.0) Lymphocytes (%) (Auto) % (20.0-45.0) Monocytes (%) (Auto) % (1.0-10.0) Eosinophils (%) (Auto) % (0.0-3.0) Basophils (%) (Auto) % (0.0-2.0) Differential Total Cells Counted 100 Neutrophils % (Manual) 55 % (45-75) Lymphocytes % (Manual) 14 % (20-45) L Monocytes % (Manual) 29 % (1-10) H Eosinophils % (Manual) 1 % (0-3) Basophils % (Manual) 0 % (0-2) Metamyelocytes % 1 % (0-0) H Band Neutrophils 0 % (0-8) Platelet Estimate Decreased L Platelet Morphology Normal Hypochromasia 2+ Anisocytosis 2+ Sodium Level 138 MMOL/L (136-145) Potassium Level 3.9 MMOL/L (3.5-5.1) Chloride Level 95 MMOL/L (98-107) L Carbon Dioxide Level 36 MMOL/L (21-32) H Anion Gap 7 mmol/L (5-15) Blood Urea Nitrogen 36 mg/dL (7-18) H Creatinine 9.5 MG/DL (0.55-1.30) H Estimat Glomerular Filtration Rate 6.9 mL/min (>60) Glucose Level 84 MG/DL (74-106) Calcium Level 9.0 MG/DL (8.5-10.1) Total Bilirubin 1.3 MG/DL (0.2-1.0) H Direct Bilirubin 0.5 MG/DL (0.0-0.3) H Aspartate Amino Transf (AST/SGOT) 37 U/L (15-37) Alanine Aminotransferase (ALT/SGPT) 183 U/L (12-78) H Alkaline Phosphatase 158 U/L (46-116) H Total Protein 7.1 G/DL (6.4-8.2) Albumin 2.2 G/DL (3.4-5.0) L Globulin 4.9 g/dL Albumin/Globulin Ratio 0.4 (1.0-2.7) L Random Vancomycin Level 22.0 ug/mL Blastomyces Ab Immunodiffusion Pending Histoplasma Mycelial Antibody Pending Histoplasma Antibody w Mycelial Ag Pending Histoplasma Antibody with Yeast Ag Pending Aspergillus galactomannan Antigen Pending Plan Problems: (1) Intractable abdominal pain Assessment & Plan: 57M with abdominal pain. elevated lft's and ultrasound reviewed. has liver cirrhosis, ascites, and gallbladder findings on ultrasound likely secondary to intrinsic liver disease. on exam his abdominal pain is fairly superficial and around this right abd upper and lower and right flank. he has edema and thickening of the right subcutaneous tissues as compared to the left. possible abscess vs cellulitis? Ultrasound findings: Impression: Ascites Evidence of hepatic cirrhosis Cholelithiasis. There is gallbladder wall thickening, likely related to hemodynamic abnormalities related to the hepatic abnormality, particularly as this is evident on the prior exam of 2 years earlier. However, acute cholecystitis cannot be completely ruled out, and hepatobiliary scanning is recommended if there is high clinical suspicion CT findings: Impression: Evidence of hepatic cirrhosis. Hepatosplenomegaly Ascites. There is also evidence of generalized anasarca, with pleural fluid and generalized subcutaneous edema Cholelithiasis, also previously reported Possible diverticulosis. No evidence of diverticulitis Nonvisualized appendix. No evidence of appendicitis Left renal cysts. Subcentimeter right lobe hepatic and bilateral renal lesions, too small to characterize, most likely benign simple cysts. No further follow-up necessary Bilateral pleural effusions and parenchymal consolidation. LFT's improving. but still no clear explanation as to acute elevation in LFT' s. Right sided abdominal pain improved CT A/P reviewed. -given exam, radiological findings, history, unlikely to be acute cholecystitis. exam with discomfort in right upper/lower/flank region and improving ultrasound findings similar to that of two years ago. pain could be from hepatomegaly? or even from significant subcutaneous edema/anasarca in that area. -no acute surgical intervention recommended at this time. -cont abx -will follow with recs. Ever Parham Jun 17, 2017 12:22
--- NOTE | 2017-06-17 13:23 | Infectious Diseases Prog Note ---
Assessment/Plan Assessment/Plan Pneumonia with possible cavitary lesion/hemoptysis. SCx: Neg ( m/l necrotizing Pneum, less likely fungal and doubt TB ) Rsp status improved up to yesterday but on 06/[address] his condition worsen T-SPOT :Neg AFB x 3 : Neg MTB PCR x2 : neg cryptococcus Ag : neg CT chest 06/15: Slightly smaller (6 cm diameter ) but mostly unchanged cavitary lesion in the right lung, previously thought to represent a cavitating inflammatory process. Lung abscess is certainly a possibility. Fairly extensive bilateral pulmonary parenchymal consolidation, slightly increased from previous exam of 06/05/2017. Likely a combination of pulmonary edema and pneumonia. Small right and trace left pleural effusion, new/increased from the previous study. CT 06/05: 7.8 x 5.3 x 6.6 cm dense opacity in the posterior inferior right upper lobe with a central cavitation. Chest x-ray : right mid lung infiltrate, possible cavitation Rule out tuberculosis, fungal infection, or necrotizing pneumonia. CRP 14 Influenza negative Low-grade fever, SP Status post leukocytosis. Transaminitis , probably 2/2 Hep C cirrhosis -CT abd/p: Evidence of hepatic cirrhosis. Hepatosplenomegaly. evidence of generalized anasarca, with pleural fluid and generalized subcutaneous edema. Cholelithiasis, also previously reported. Possible diverticulosis. No evidence of diverticulitis US Abd : Cholelithiasis. There is gallbladder wall thickening, likely related to hemodynamic abnormalities Splenomegaly. Evidence of hepatic cirrhosis HIV : NEG Hep Panel B neg , C Ab : +ve , VL p leukopenia and TCP 2/2 splenomegaly Seizure disorder History of CVA History of pacemaker placement Hyperlipidemia Hypertension COPD/asthma End-stage renal disease, on hemodialysis Diabetes Anxiety Anemia Echo, ejection fraction 45% to 50%. PLAN: Patient cont vancomycin day # 14/14 , and AmphoB #4( possible Aspergillosis) -Switch Meropenem to Flagyl (in addition with Levaquin will provide anaerobic coverage for possible aspiration/cavitary PNA as no isolation of resistant organisms); abx d# 15/21-28 Continue empiric Ethambutol , amikacin d# 4 and Levaquin d# 5 ( TB Control recs to start TB Rx, doubt that this is needed at his time pt has pt improved initially, wups so far neg for TB, has increased of LFT , ) SP 3 SP Zosyn d# 10 SP 3/4 SP Zithromax D# 6 f/u sputum culture (, fungal, and AFB x3). f/u Coccidioidal ,Galactomannan and Fungitell, Histoplasma ag urine and ab, blastomycies ab Airborne isolation for now may need BAL , will defer this to Pul team f/u Hep C PCR may need JIMY ro SBE w emboli to lung ( hx of AICD ) Subjective Allergies: Coded Allergies: No Known Allergies (Unverified , 10/24/15) Subjective afebrile no leukocytosis LFTs improving fungal serologies pending Objective Vital Signs Last 24 Hour Vital Signs Date Time Temp Pulse Resp B/P (MAP) Pulse Ox O2 Delivery O2 Flow Rate FiO2 06/17/17 11:46 98.2 82 22 120/70 98 98.2 06/17/17 11:27 130/66 06/17/17 11:15 130/66 06/17/17 11:13 85 130/66 06/17/17 08:15 Venturi Mask 12.0 50 06/17/17 08:15 94 Venturi Mask 12.0 50 06/17/17 08:07 98.4 85 22 130/66 100 98.4 06/17/17 05:10 98 25 94 Facial 15.0 40 06/17/17 04:08 Venturi Mask 15.0 40 06/17/17 04:07 98.1 94 24 130/77 94 Venturi Mask 98.1 06/17/17 02:56 89 06/17/17 00:00 98.0 96 24 141/77 93 Bi-pap 98.0 06/16/17 23:54 94 28 92 Facial 40 06/16/17 22:27 92 06/16/17 21:13 96 Venturi Mask 12.0 50 06/16/17 21:13 Venturi Mask 12.0 50 06/16/17 20:00 96 Venturi Mask 15.0 40 06/16/17 20:00 98.3 96 36 142/82 Venturi Mask 14.0 98.3 06/16/17 20:00 Venturi Mask 14.0 06/16/17 20:00 98.2 96 24 92 Venturi Mask 98.2 06/16/17 17:00 98.0 85 40 148/92 Venturi Mask 14.0 98.0 06/16/17 17:00 Venturi Mask 14.0 06/16/17 16:00 98.1 74 20 128/80 95 Venturi Mask 15.0 98.1 06/16/17 16:00 79 Height (Feet): 5 Height (Inches): 7.00 Weight (Pounds): 215 Objective General Appearance: WD/WN, alert, moderate distress EENT: PERRL/EOMI, normal ENT inspection Neck: non-tender, normal alignment, supple, normal inspection Cardiovascular: normal peripheral pulses, normal rate, regular rhythm, no gallop/murmur, no JVD Respiratory/Chest: Non rebreather; respiratory distress, crackles/rales, rhonchi - bilaterally, expiratory wheezing Abdomen: normal bowel sounds, non tender, soft, no organomegaly, no mass Extremities: normal range of motion Neurologic: order to delivery supervisor 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, no motor/sensory deficits Skin: normal pigmentation, warm/dry Laboratory Tests Test 06/17/17 05:00 White Blood Count 6.2 K/UL (4.8-10.8) Red Blood Count 2.44 M/UL (4.70-6.10) L Hemoglobin 7.3 G/DL (14.2-18.0) L Hematocrit 23.1 % (42.0-52.0) L Mean Corpuscular Volume 94 FL (80-99) Mean Corpuscular Hemoglobin 29.8 PG (27.0-31.0) Mean Corpuscular Hemoglobin Concent 31.5 G/DL (32.0-36.0) L Red Cell Distribution Width 18.3 % (11.6-14.8) H Platelet Count 106 K/UL (150-450) L Mean Platelet Volume 7.9 FL (6.5-10.1) Neutrophils (%) (Auto) % (45.0-75.0) Lymphocytes (%) (Auto) % (20.0-45.0) Monocytes (%) (Auto) % (1.0-10.0) Eosinophils (%) (Auto) % (0.0-3.0) Basophils (%) (Auto) % (0.0-2.0) Differential Total Cells Counted 100 Neutrophils % (Manual) 55 % (45-75) Lymphocytes % (Manual) 14 % (20-45) L Monocytes % (Manual) 29 % (1-10) H Eosinophils % (Manual) 1 % (0-3) Basophils % (Manual) 0 % (0-2) Metamyelocytes % 1 % (0-0) H Band Neutrophils 0 % (0-8) Platelet Estimate Decreased L Platelet Morphology Normal Hypochromasia 2+ Anisocytosis 2+ Sodium Level 138 MMOL/L (136-145) Potassium Level 3.9 MMOL/L (3.5-5.1) Chloride Level 95 MMOL/L (98-107) L Carbon Dioxide Level 36 MMOL/L (21-32) H Anion Gap 7 mmol/L (5-15) Blood Urea Nitrogen 36 mg/dL (7-18) H Creatinine 9.5 MG/DL (0.55-1.30) H Estimat Glomerular Filtration Rate 6.9 mL/min (>60) Glucose Level 84 MG/DL (74-106) Calcium Level 9.0 MG/DL (8.5-10.1) Total Bilirubin 1.3 MG/DL (0.2-1.0) H Direct Bilirubin 0.5 MG/DL (0.0-0.3) H Aspartate Amino Transf (AST/SGOT) 37 U/L (15-37) Alanine Aminotransferase (ALT/SGPT) 183 U/L (12-78) H Alkaline Phosphatase 158 U/L (46-116) H Total Protein 7.1 G/DL (6.4-8.2) Albumin 2.2 G/DL (3.4-5.0) L Globulin 4.9 g/dL Albumin/Globulin Ratio 0.4 (1.0-2.7) L Random Vancomycin Level 22.0 ug/mL Blastomyces Ab Immunodiffusion Pending Histoplasma Mycelial Antibody Pending Histoplasma Antibody w Mycelial Ag Pending Histoplasma Antibody with Yeast Ag Pending Aspergillus galactomannan Antigen Pending Current Medications Medications (Trade) Dose Ordered Sig/Jose Route PRN Reason Start Time Stop Time Status Last Admin Dose Admin Acetaminophen (Tylenol) 650 mg Q4H PRN RECTAL Mild Pain (Pain Scale 1-3) 06/16/17 19:00 07/09/17 18:59 Alprazolam (Xanax) 2 mg DAILYPRN PRN ORAL Agitation 06/16/17 18:45 06/23/17 18:44 Alprazolam (Xanax) 2 mg Q12HR ORAL 06/16/17 21:00 06/20/17 20:59 06/17/17 11:15 Amikacin Sulfate 1000 mg/Sodium Chloride 114 ml @ 228 mls/hr FRI- IV 06/18/17 21:00 06/25/17 20:59 Amphotericin B 50 mg/Dextrose 500 ml @ 100 mls/hr Q24H IV 06/16/17 20:00 06/21/17 19:59 06/16/17 19:49 Carisoprodol (Soma) 350 mg BID ORAL 06/17/17 20:00 07/15/17 19:59 06/17/17 11:31 Carisoprodol (Soma) 350 mg Q6H PRN ORAL MUSCLE SPASMS 06/16/17 19:00 07/14/17 18:59 Carvedilol (Coreg) 25 mg EVERY 12 HOURS ORAL 06/16/17 21:00 07/04/17 11:29 06/17/17 11:13 Chlorhexidine Gluconate (Mireille-Hex 2%) 1 applic DAILY@2000 TOPIC 06/16/17 20:00 07/05/17 19:59 06/16/17 19:49 Clonidine HCl (Catapres Tab) 0.1 mg Q4H PRN ORAL bp over 160 syst 06/16/17 19:00 07/03/17 18:59 Dextrose 1,000 ml @ 50 mls/hr Q20H IV 06/16/17 19:00 07/14/17 18:59 06/16/17 18:44 Dextrose (Dextrose 50%) STAT PRN IV Hypoglycemia 06/16/17 19:00 07/14/17 18:59 Docusate Sodium (Colace) 100 mg THREE TIMES A DAY ORAL 06/17/17 20:00 07/03/17 19:59 Ethambutol HCl (Myambutol) 2,000 mg 3XW ORAL 06/18/17 09:00 07/14/17 17:59 Levofloxacin 100 ml @ 100 mls/hr Q48H IVPB 06/17/17 20:00 06/22/17 19:59 Lisinopril (Prinivil) 20 mg BID ORAL 06/17/17 09:00 07/04/17 08:59 06/17/17 11:27 Meperidine HCl (Demerol) 25 mg ONCE PRN IM RIGOR AFTER AMPHO DOSE 06/16/17 19:00 06/23/17 18:59 Meropenem 500 mg/ Sodium Chloride 55 ml @ 110 mls/hr Q24H IV 06/17/17 00:00 06/22/17 00:00 06/17/17 00:08 Morphine Sulfate (Morphine Sulfate) 2 mg Q4H PRN IVP Moderate Pain (Pain Scale 4-6) 06/17/17 14:45 06/24/17 14:44 Nitroglycerin (Ntg) 0.4 mg Q5M PRN SL Prn Chest Pain 06/16/17 18:15 07/04/17 09:14 Nitroglycerin (Ntg) 1 patch Q24H TDERMAL 06/17/17 11:30 07/04/17 11:29 06/17/17 11:15 Ondansetron HCl (Zofran) 4 mg Q6H PRN IVP Nausea & Vomiting 06/16/17 18:30 07/14/17 18:29 Pantoprazole (Protonix) 40 mg ACBREAKFAST ORAL 06/17/17 06:30 07/15/17 06:29 06/17/17 05:48 Polyethylene Glycol (Miralax) 17 gm DAILYPRN PRN ORAL Constipation 06/16/17 18:30 07/14/17 18:29 Promethazine HCl/ Codeine (Phenergan with Codeine) 5 ml Q4H PRN ORAL For Cough 06/16/17 18:30 07/05/17 18:29 Sevelamer Carbonate (Renvela) 2,400 mg THREE TIMES A DAY ORAL 06/16/17 18:45 07/16/17 18:44 06/17/17 11:14 Vancomycin HCl (Vanco rx to dose) 1 ea DAILY PRN MISC Per rx protocol 06/16/17 19:00 07/16/17 18:59 Aleja Crocker M.D. Jun 17, 2017 13:23
[2017-06-17 16:00] VITALS: BP 118/68
--- NOTE | 2017-06-17 16:19 | Nephrology Progress Note ---
Assessment/Plan Problem List: (1) ESRD (end stage renal disease) on dialysis (2) Shortness of breath (3) Anemia Assessment ESRD , missed HD , admitted with high K and pulmonary edema Acute respiratory distress due to volume overload elevated troponin r/o ACS h/o COPD ? exacerbation HTN urgency Cardiomyopathy L AICD anemia of chronic kidney disease Hx of CVA Plan Plan: Low H&H - consider transfusion HD next 06/18 Transfused Phos binders BP meds adjustment Optimize cardiac status per orders Subjective ROS Limited/Unobtainable: No Constitutional: Reports: malaise Objective Objective Last 24 Hour Vital Signs Date Time Temp Pulse Resp B/P (MAP) Pulse Ox O2 Delivery O2 Flow Rate FiO2 06/17/17 16:00 97.8 71 20 118/68 99 97.8 06/17/17 12:30 98.2 06/17/17 11:46 98.2 82 22 120/70 98 98.2 06/17/17 11:27 130/66 06/17/17 11:15 130/66 06/17/17 11:13 85 130/66 06/17/17 08:15 Venturi Mask 12.0 50 06/17/17 08:15 94 Venturi Mask 12.0 50 06/17/17 08:07 98.4 85 22 130/66 100 98.4 06/17/17 05:10 98 25 94 Facial 15.0 40 06/17/17 04:08 Venturi Mask 15.0 40 06/17/17 04:07 98.1 94 24 130/77 94 Venturi Mask 98.1 06/17/17 02:56 89 06/17/17 00:00 98.0 96 24 141/77 93 Bi-pap 98.0 06/16/17 23:54 94 28 92 Facial 40 06/16/17 22:27 92 06/16/17 21:13 96 Venturi Mask 12.0 50 06/16/17 21:13 Venturi Mask 12.0 50 06/16/17 20:00 96 Venturi Mask 15.0 40 06/16/17 20:00 98.3 96 36 142/82 Venturi Mask 14.0 98.3 06/16/17 20:00 Venturi Mask 14.0 06/16/17 20:00 98.2 96 24 92 Venturi Mask 98.2 06/16/17 17:00 98.0 85 40 148/92 Venturi Mask 14.0 98.0 06/16/17 17:00 Venturi Mask 14.0 Intake and Output 06/16/17 06/17/17 19:00 07:00 Intake Total 450 ml 915 ml Output Total 2291 ml Balance 450 ml -1376 ml Intake Oral 60 ml IV Total 450 ml 855 ml Hemodialysis UF 2291 ml # Voids 1 Laboratory Tests 06/17/17 05:00: White Blood Count 6.2, Red Blood Count 2.44L, Hemoglobin 7.3L, Hematocrit 23.1L , Mean Corpuscular Volume 94, Mean Corpuscular Hemoglobin 29.8, Mean Corpuscular Hemoglobin Concent 31.5L, Red Cell Distribution Width 18.3H, Platelet Count 106L, Mean Platelet Volume 7.9, Neutrophils (%) (Auto) , Lymphocytes (%) (Auto) , Monocytes (%) (Auto) , Eosinophils (%) (Auto) , Basophils (%) (Auto) , Differential Total Cells Counted 100, Neutrophils % ( Manual) 55, Lymphocytes % (Manual) 14L, Monocytes % (Manual) 29H, Eosinophils % (Manual) 1, Basophils % (Manual) 0, Metamyelocytes % 1H, Band Neutrophils 0, Platelet Estimate DecreasedL, Platelet Morphology Normal, Hypochromasia 2+, Anisocytosis 2+, Sodium Level 138, Potassium Level 3.9, Chloride Level 95L, Carbon Dioxide Level 36H, Anion Gap 7, Blood Urea Nitrogen 36H, Creatinine 9.5H , Estimat Glomerular Filtration Rate 6.9, Glucose Level 84, Calcium Level 9.0, Total Bilirubin 1.3H, Direct Bilirubin 0.5H, Aspartate Amino Transf (AST/SGOT) 37, Alanine Aminotransferase (ALT/SGPT) 183H, Alkaline Phosphatase 158H, Total Protein 7.1, Albumin 2.2L, Globulin 4.9, Albumin/Globulin Ratio 0.4L, Random Vancomycin Level 22.0, Blastomyces Ab Immunodiffusion [Pending], Histoplasma Mycelial Antibody [Pending], Histoplasma Antibody w Mycelial Ag [Pending], Histoplasma Antibody with Yeast Ag [Pending], Aspergillus galactomannan Antigen [Pending] Height (Feet): 5 Height (Inches): 7.00 Weight (Pounds): 215 Objective no change LIAM MONTELONGO Jun 17, 2017 16:19
--- NOTE | 2017-06-17 19:19 | Internal Med Progress Note ---
Subjective Date of Service: Jun 17, 2017 Physician Name Zoey Pires Attending Physician Chaitanya Weinstein MD Current Medications Medications (Trade) Dose Ordered Sig/Jose Route PRN Reason Start Time Stop Time Status Last Admin Dose Admin Acetaminophen (Tylenol) 650 mg Q4H PRN RECTAL Mild Pain (Pain Scale 1-3) 06/16/17 19:00 07/09/17 18:59 Alprazolam (Xanax) 2 mg DAILYPRN PRN ORAL Agitation 06/16/17 18:45 06/23/17 18:44 Alprazolam (Xanax) 2 mg Q12HR ORAL 06/16/17 21:00 06/20/17 20:59 06/17/17 11:15 Amikacin Sulfate 950 mg/Sodium Chloride 113.8 ml @ 227.6 mls/ hr FRI-FRI-FRI IV 06/18/17 21:00 06/25/17 23:59 Amphotericin B 50 mg/Dextrose 500 ml @ 100 mls/hr Q24H IV 06/16/17 20:00 06/21/17 19:59 06/16/17 19:49 Carisoprodol (Soma) 350 mg BID ORAL 06/17/17 20:00 07/15/17 19:59 06/17/17 11:31 Carisoprodol (Soma) 350 mg Q6H PRN ORAL MUSCLE SPASMS 06/16/17 19:00 07/14/17 18:59 Carvedilol (Coreg) 25 mg EVERY 12 HOURS ORAL 06/16/17 21:00 07/04/17 11:29 06/17/17 11:13 Chlorhexidine Gluconate (Mireille-Hex 2%) 1 applic DAILY@2000 TOPIC 06/16/17 20:00 07/05/17 19:59 06/16/17 19:49 Clonidine HCl (Catapres Tab) 0.1 mg Q4H PRN ORAL bp over 160 syst 06/16/17 19:00 07/03/17 18:59 Dextrose 1,000 ml @ 50 mls/hr Q20H IV 06/16/17 19:00 07/14/17 18:59 06/17/17 15:19 Dextrose (Dextrose 50%) STAT PRN IV Hypoglycemia 06/16/17 19:00 07/14/17 18:59 Docusate Sodium (Colace) 100 mg THREE TIMES A DAY ORAL 06/17/17 20:00 07/03/17 19:59 Ethambutol HCl (Myambutol) 1,000 mg 3XW ORAL 06/18/17 09:00 07/18/17 23:59 Levofloxacin (Levaquin) 750 mg EVERY OTHER DAY@2000 ORAL 06/17/17 20:00 06/24/17 19:59 Lisinopril (Prinivil) 20 mg BID ORAL 06/17/17 09:00 07/04/17 08:59 06/17/17 18:20 Meperidine HCl (Demerol) 25 mg ONCE PRN IM RIGOR AFTER AMPHO DOSE 06/16/17 19:00 06/23/17 18:59 Metronidazole (Flagyl) 500 mg Q8HR ORAL 06/17/17 22:00 06/24/17 21:59 Morphine Sulfate (Morphine Sulfate) 2 mg Q4H PRN IVP Moderate Pain (Pain Scale 4-6) 06/17/17 14:45 06/24/17 14:44 Nitroglycerin (Ntg) 0.4 mg Q5M PRN SL Prn Chest Pain 06/16/17 18:15 07/04/17 09:14 Nitroglycerin (Ntg) 1 patch Q24H TDERMAL 06/17/17 11:30 07/04/17 11:29 06/17/17 11:15 Ondansetron HCl (Zofran) 4 mg Q6H PRN IVP Nausea & Vomiting 06/16/17 18:30 07/14/17 18:29 Pantoprazole (Protonix) 40 mg ACBREAKFAST ORAL 06/17/17 06:30 07/15/17 06:29 06/17/17 05:48 Polyethylene Glycol (Miralax) 17 gm DAILYPRN PRN ORAL Constipation 06/16/17 18:30 07/14/17 18:29 Promethazine HCl/ Codeine (Phenergan with Codeine) 5 ml Q4H PRN ORAL For Cough 06/16/17 18:30 07/05/17 18:29 Sevelamer Carbonate (Renvela) 2,400 mg THREE TIMES A DAY ORAL 06/16/17 18:45 07/16/17 18:44 06/17/17 18:20 Allergies: Coded Allergies: No Known Allergies (Unverified , 10/24/15) ROS Limited/Unobtainable: Yes Subjective 57 YO M admitted with chest pain and shortness of breath. Now pneumonia and candelaria heart failure. Tolerating venturi mask. Cover for Int Misbah-Dr Weinstein. Objective Last Vital Signs Date Time Temp Pulse Resp B/P (MAP) Pulse Ox O2 Delivery O2 Flow Rate FiO2 06/17/17 18:20 118/68 06/17/17 16:00 97.8 71 20 99 97.8 06/17/17 08:15 Venturi Mask 12.0 50 Laboratory Tests Test 06/17/17 05:00 White Blood Count 6.2 K/UL (4.8-10.8) Red Blood Count 2.44 M/UL (4.70-6.10) L Hemoglobin 7.3 G/DL (14.2-18.0) L Hematocrit 23.1 % (42.0-52.0) L Mean Corpuscular Volume 94 FL (80-99) Mean Corpuscular Hemoglobin 29.8 PG (27.0-31.0) Mean Corpuscular Hemoglobin Concent 31.5 G/DL (32.0-36.0) L Red Cell Distribution Width 18.3 % (11.6-14.8) H Platelet Count 106 K/UL (150-450) L Mean Platelet Volume 7.9 FL (6.5-10.1) Neutrophils (%) (Auto) % (45.0-75.0) Lymphocytes (%) (Auto) % (20.0-45.0) Monocytes (%) (Auto) % (1.0-10.0) Eosinophils (%) (Auto) % (0.0-3.0) Basophils (%) (Auto) % (0.0-2.0) Differential Total Cells Counted 100 Neutrophils % (Manual) 55 % (45-75) Lymphocytes % (Manual) 14 % (20-45) L Monocytes % (Manual) 29 % (1-10) H Eosinophils % (Manual) 1 % (0-3) Basophils % (Manual) 0 % (0-2) Metamyelocytes % 1 % (0-0) H Band Neutrophils 0 % (0-8) Platelet Estimate Decreased L Platelet Morphology Normal Hypochromasia 2+ Anisocytosis 2+ Sodium Level 138 MMOL/L (136-145) Potassium Level 3.9 MMOL/L (3.5-5.1) Chloride Level 95 MMOL/L (98-107) L Carbon Dioxide Level 36 MMOL/L (21-32) H Anion Gap 7 mmol/L (5-15) Blood Urea Nitrogen 36 mg/dL (7-18) H Creatinine 9.5 MG/DL (0.55-1.30) H Estimat Glomerular Filtration Rate 6.9 mL/min (>60) Glucose Level 84 MG/DL (74-106) Calcium Level 9.0 MG/DL (8.5-10.1) Total Bilirubin 1.3 MG/DL (0.2-1.0) H Direct Bilirubin 0.5 MG/DL (0.0-0.3) H Aspartate Amino Transf (AST/SGOT) 37 U/L (15-37) Alanine Aminotransferase (ALT/SGPT) 183 U/L (12-78) H Alkaline Phosphatase 158 U/L (46-116) H Total Protein 7.1 G/DL (6.4-8.2) Albumin 2.2 G/DL (3.4-5.0) L Globulin 4.9 g/dL Albumin/Globulin Ratio 0.4 (1.0-2.7) L Random Vancomycin Level 22.0 ug/mL Blastomyces Ab Immunodiffusion Pending Histoplasma Mycelial Antibody Pending Histoplasma Antibody w Mycelial Ag Pending Histoplasma Antibody with Yeast Ag Pending Aspergillus galactomannan Antigen Pending Intake and Output 06/16/17 06/17/17 19:00 07:00 Intake Total 450 ml 915 ml Output Total 2291 ml Balance 450 ml -1376 ml Intake Oral 60 ml IV Total 450 ml 855 ml Hemodialysis UF 2291 ml # Voids 1 Objective General Appearance: WD/WN, alert, moderate distress EENT: PERRL/EOMI, normal ENT inspection Neck: non-tender, normal alignment, supple, normal inspection Cardiovascular: normal peripheral pulses, normal rate, regular rhythm, no gallop/murmur, no JVD Respiratory/Chest: Non rebreather; respiratory distress, crackles/rales, rhonchi - bilaterally, expiratory wheezing Abdomen: normal bowel sounds, non tender, soft, no organomegaly, no mass Extremities: normal range of motion 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 Currently on venturi mask. See pulmonay note. (2) Pleuritic chest pain (3) Hemoptysis Assessment & Plan: Due to pneumonia (4) Pneumonia Assessment & Plan: RUL and cavitary. Concerning for TB. Await AFB cultures- see ID consult. Continue vanco and ethambutol per ID (5) Shortness of breath (6) ESRD (end stage renal disease) on dialysis Assessment & Plan: See nephrology note. Hemodialysis 06/14/17 per nephrology (7) Hyperkalemia Assessment & Plan: Due to renal failure. Hemodialysis 06/12/17 per nephrology (8) COPD (chronic obstructive pulmonary disease) (9) HTN (hypertension) Assessment & Plan: Continue coreg and lisinopril. (10) CHF (congestive heart failure) (11) Elevated troponin Assessment & Plan: ?due to renal failure? See cardiology note. (12) Intractable abdominal pain Assessment & Plan: See surgery note. Await CT abdomen Status: not improved ZOEY PIRES Jun 17, 2017 19:19
[2017-06-17] MEDS: Docusate 100mg cap ORAL SCH (19:58)
[2017-06-17] MEDS: [UNRECOGNIZED DRUG - OTHER] IV SCH (19:59)
[2017-06-17] MEDS: Dyna-Hex 2% Top Sol 2oz TOPIC SCH (19:59)
[2017-06-17] MEDS: D5W IV SCH (19:59)
[2017-06-17 20:00] VITALS: BP 117/72
[2017-06-17] MEDS: Morphine Sulfate 2mg/ml Inj IVP PRN (20:00)
--- NOTE | 2017-06-17 21:18 | Pulmonology Progress Note ---
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 Sputum shows only charli hold heparin for low PLT on anti TB meds f/u wbc and cultures Subjective ROS Limited/Unobtainable: No Allergies: Coded Allergies: No Known Allergies (Unverified , 10/24/15) Objective Last 24 Hour Vital Signs Date Time Temp Pulse Resp B/P (MAP) Pulse Ox O2 Delivery O2 Flow Rate FiO2 06/17/17 20:27 Nasal Cannula 2.0 28 06/17/17 20:26 91 Nasal Cannula 2.0 28 06/17/17 18:20 118/68 06/17/17 16:00 97.8 71 20 118/68 99 97.8 06/17/17 12:30 98.2 06/17/17 11:46 98.2 82 22 120/70 98 98.2 06/17/17 11:27 130/66 06/17/17 11:15 130/66 06/17/17 11:13 85 130/66 06/17/17 08:15 Venturi Mask 12.0 50 06/17/17 08:15 94 Venturi Mask 12.0 50 06/17/17 08:07 98.4 85 22 130/66 100 98.4 06/17/17 05:10 98 25 94 Facial 15.0 40 06/17/17 04:08 Venturi Mask 15.0 40 06/17/17 04:07 98.1 94 24 130/77 94 Venturi Mask 98.1 06/17/17 02:56 89 06/17/17 00:00 98.0 96 24 141/77 93 Bi-pap 98.0 06/16/17 23:54 94 28 92 Facial 40 06/16/17 22:27 92 Intake and Output 06/16/17 06/17/17 19:00 07:00 Intake Total 450 ml 915 ml Output Total 2291 ml Balance 450 ml -1376 ml Intake Oral 60 ml IV Total 450 ml 855 ml Hemodialysis UF 2291 ml # Voids 1 Objective General Appearance: WD/WN HEENT: normocephalic, atraumatic, anicteric Respiratory/Chest: loud rhonchi Cardiovascular: normal peripheral pulses, normal rate, regular rhythm Abdomen: normal bowel sounds, soft, non tender, no organomegaly Genitourinary: normal external genitalia Extremities: no cyanosis Skin: no rash, no lesions 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, no motor/sensory deficits Lymphatic: no neck adenopathy, no groin adenopathy Laboratory Tests 06/17/17 05:00: White Blood Count 6.2, Red Blood Count 2.44L, Hemoglobin 7.3L, Hematocrit 23.1L , Mean Corpuscular Volume 94, Mean Corpuscular Hemoglobin 29.8, Mean Corpuscular Hemoglobin Concent 31.5L, Red Cell Distribution Width 18.3H, Platelet Count 106L, Mean Platelet Volume 7.9, Neutrophils (%) (Auto) , Lymphocytes (%) (Auto) , Monocytes (%) (Auto) , Eosinophils (%) (Auto) , Basophils (%) (Auto) , Differential Total Cells Counted 100, Neutrophils % ( Manual) 55, Lymphocytes % (Manual) 14L, Monocytes % (Manual) 29H, Eosinophils % (Manual) 1, Basophils % (Manual) 0, Metamyelocytes % 1H, Band Neutrophils 0, Platelet Estimate DecreasedL, Platelet Morphology Normal, Hypochromasia 2+, Anisocytosis 2+, Sodium Level 138, Potassium Level 3.9, Chloride Level 95L, Carbon Dioxide Level 36H, Anion Gap 7, Blood Urea Nitrogen 36H, Creatinine 9.5H , Estimat Glomerular Filtration Rate 6.9, Glucose Level 84, Calcium Level 9.0, Total Bilirubin 1.3H, Direct Bilirubin 0.5H, Aspartate Amino Transf (AST/SGOT) 37, Alanine Aminotransferase (ALT/SGPT) 183H, Alkaline Phosphatase 158H, Total Protein 7.1, Albumin 2.2L, Globulin 4.9, Albumin/Globulin Ratio 0.4L, Random Vancomycin Level 22.0, Blastomyces Ab Immunodiffusion [Pending], Histoplasma Mycelial Antibody [Pending], Histoplasma Antibody w Mycelial Ag [Pending], Histoplasma Antibody with Yeast Ag [Pending], Aspergillus galactomannan Antigen [Pending] Current Medications Medications (Trade) Dose Ordered Sig/Jose Route PRN Reason Start Time Stop Time Status Last Admin Dose Admin Acetaminophen (Tylenol) 650 mg Q4H PRN RECTAL Mild Pain (Pain Scale 1-3) 06/16/17 19:00 07/09/17 18:59 Alprazolam (Xanax) 2 mg DAILYPRN PRN ORAL Agitation 06/16/17 18:45 06/23/17 18:44 Alprazolam (Xanax) 2 mg Q12HR ORAL 06/16/17 21:00 06/20/17 20:59 06/17/17 11:15 Amikacin Sulfate 950 mg/Sodium Chloride 113.8 ml @ 227.6 mls/ hr FRI-FRI-FRI IV 06/18/17 21:00 06/25/17 23:59 Amphotericin B 50 mg/Dextrose 500 ml @ 100 mls/hr Q24H IV 06/16/17 20:00 06/21/17 19:59 06/17/17 19:59 Carisoprodol (Soma) 350 mg BID ORAL 06/17/17 20:00 07/15/17 19:59 06/17/17 11:31 Carisoprodol (Soma) 350 mg Q6H PRN ORAL MUSCLE SPASMS 06/16/17 19:00 07/14/17 18:59 Carvedilol (Coreg) 25 mg EVERY 12 HOURS ORAL 06/16/17 21:00 07/04/17 11:29 06/17/17 11:13 Chlorhexidine Gluconate (Mireille-Hex 2%) 1 applic DAILY@2000 TOPIC 06/16/17 20:00 07/05/17 19:59 06/17/17 19:59 Clonidine HCl (Catapres Tab) 0.1 mg Q4H PRN ORAL bp over 160 syst 06/16/17 19:00 07/03/17 18:59 Dextrose 1,000 ml @ 50 mls/hr Q20H IV 06/16/17 19:00 07/14/17 18:59 06/17/17 15:19 Dextrose (Dextrose 50%) STAT PRN IV Hypoglycemia 06/16/17 19:00 07/14/17 18:59 Docusate Sodium (Colace) 100 mg THREE TIMES A DAY ORAL 06/17/17 20:00 07/03/17 19:59 06/17/17 19:58 Ethambutol HCl (Myambutol) 1,000 mg 3XW ORAL 06/18/17 09:00 07/18/17 23:59 Levofloxacin (Levaquin) 750 mg EVERY OTHER DAY@1999 ORAL 06/17/17 20:00 06/24/17 19:59 06/17/17 19:58 Lisinopril (Prinivil) 20 mg BID ORAL 06/17/17 09:00 07/04/17 08:59 06/17/17 18:20 Meperidine HCl (Demerol) 25 mg ONCE PRN IM RIGOR AFTER AMPHO DOSE 06/16/17 19:00 06/23/17 18:59 Metronidazole (Flagyl) 500 mg Q8HR ORAL 06/17/17 22:00 06/24/17 21:59 Morphine Sulfate (Morphine Sulfate) 2 mg Q4H PRN IVP Moderate Pain (Pain Scale 4-6) 06/17/17 14:45 06/24/17 14:44 06/17/17 20:00 Nitroglycerin (Ntg) 0.4 mg Q5M PRN SL Prn Chest Pain 06/16/17 18:15 07/04/17 09:14 Nitroglycerin (Ntg) 1 patch Q24H TDERMAL 06/17/17 11:30 07/04/17 11:29 06/17/17 11:15 Ondansetron HCl (Zofran) 4 mg Q6H PRN IVP Nausea & Vomiting 06/16/17 18:30 07/14/17 18:29 Pantoprazole (Protonix) 40 mg ACBREAKFAST ORAL 06/17/17 06:30 07/15/17 06:29 06/17/17 05:48 Polyethylene Glycol (Miralax) 17 gm DAILYPRN PRN ORAL Constipation 06/16/17 18:30 07/14/17 18:29 Promethazine HCl/ Codeine (Phenergan with Codeine) 5 ml Q4H PRN ORAL For Cough 06/16/17 18:30 07/05/17 18:29 Sevelamer Carbonate (Renvela) 2,400 mg THREE TIMES A DAY ORAL 06/16/17 18:45 07/16/17 18:44 06/17/17 18:20 Christine Morgan MD Jun 17, 2017 21:18
[2017-06-17] MEDS: metroNIDAZOLE 500mg tab ORAL SCH (21:35)
--- NOTE | 2017-06-17 21:38 | General Progress Note ---
Assessment/Plan Assessment/Plan Assessment - Anemia - OB (+) Stool - R/O TB - ESRD/HD - DM - HTN - COPD - gallstones - RUQ TTP and elevated LFT - both improved today - abnormal GB ultrasound - Hepatitis C (+) Recommendations - PO as tolerated - monitor LFT - minimize meds - consider HIDA - defer to surgery - transfuse PRN - Acid blockade - Defer EGD/Colon a this time Subjective Allergies: Coded Allergies: No Known Allergies (Unverified , 10/24/15) Subjective above noted no events overnight says his abd pain improved tolerating po Objective Last 24 Hour Vital Signs Date Time Temp Pulse Resp B/P (MAP) Pulse Ox O2 Delivery O2 Flow Rate FiO2 06/17/17 20:27 Nasal Cannula 2.0 28 06/17/17 20:26 91 Nasal Cannula 2.0 28 06/17/17 18:20 118/68 06/17/17 16:00 97.8 71 20 118/68 99 97.8 06/17/17 12:30 98.2 06/17/17 11:46 98.2 82 22 120/70 98 98.2 06/17/17 11:27 130/66 06/17/17 11:15 130/66 06/17/17 11:13 85 130/66 06/17/17 08:15 Venturi Mask 12.0 50 06/17/17 08:15 94 Venturi Mask 12.0 50 06/17/17 08:07 98.4 85 22 130/66 100 98.4 06/17/17 05:10 98 25 94 Facial 15.0 40 06/17/17 04:08 Venturi Mask 15.0 40 06/17/17 04:07 98.1 94 24 130/77 94 Venturi Mask 98.1 06/17/17 02:56 89 06/17/17 00:00 98.0 96 24 141/77 93 Bi-pap 98.0 06/16/17 23:54 94 28 92 Facial 40 06/16/17 22:27 92 Intake and Output 06/16/17 06/17/17 19:00 07:00 Intake Total 450 ml 915 ml Output Total 2291 ml Balance 450 ml -1376 ml Intake Oral 60 ml IV Total 450 ml 855 ml Hemodialysis UF 2291 ml # Voids 1 Laboratory Tests 06/17/17 05:00: White Blood Count 6.2, Red Blood Count 2.44L, Hemoglobin 7.3L, Hematocrit 23.1L , Mean Corpuscular Volume 94, Mean Corpuscular Hemoglobin 29.8, Mean Corpuscular Hemoglobin Concent 31.5L, Red Cell Distribution Width 18.3H, Platelet Count 106L, Mean Platelet Volume 7.9, Neutrophils (%) (Auto) , Lymphocytes (%) (Auto) , Monocytes (%) (Auto) , Eosinophils (%) (Auto) , Basophils (%) (Auto) , Differential Total Cells Counted 100, Neutrophils % ( Manual) 55, Lymphocytes % (Manual) 14L, Monocytes % (Manual) 29H, Eosinophils % (Manual) 1, Basophils % (Manual) 0, Metamyelocytes % 1H, Band Neutrophils 0, Platelet Estimate DecreasedL, Platelet Morphology Normal, Hypochromasia 2+, Anisocytosis 2+, Sodium Level 138, Potassium Level 3.9, Chloride Level 95L, Carbon Dioxide Level 36H, Anion Gap 7, Blood Urea Nitrogen 36H, Creatinine 9.5H , Estimat Glomerular Filtration Rate 6.9, Glucose Level 84, Calcium Level 9.0, Total Bilirubin 1.3H, Direct Bilirubin 0.5H, Aspartate Amino Transf (AST/SGOT) 37, Alanine Aminotransferase (ALT/SGPT) 183H, Alkaline Phosphatase 158H, Total Protein 7.1, Albumin 2.2L, Globulin 4.9, Albumin/Globulin Ratio 0.4L, Random Vancomycin Level 22.0, Blastomyces Ab Immunodiffusion [Pending], Histoplasma Mycelial Antibody [Pending], Histoplasma Antibody w Mycelial Ag [Pending], Histoplasma Antibody with Yeast Ag [Pending], Aspergillus galactomannan Antigen [Pending] Height (Feet): 5 Height (Inches): 7.00 Weight (Pounds): 215 Objective WDWN AA Man NCAT supple CTA RRR Soft mildly distended, (+) improved RUQ TTP No edema PERCY JOYNER Jun 17, 2017 21:38
[2017-06-18] MEDS: Morphine Sulfate 2mg/ml Inj IVP PRN ×3 (03:27→21:19)
[2017-06-18] MEDS: metroNIDAZOLE 500mg tab ORAL SCH ×3 (05:35→21:08)
[2017-06-18] MEDS: ALPRAZolam 0.5mg tab ORAL PRN (05:44)
[2017-06-18 08:00] VITALS: BP 143/77
[2017-06-18 08:22] LABS: HEMATOCRIT 23.5 % (42.0-52.0); HEMOGLOBIN 7.1 G/DL (14.2-18.0); MEAN CORPUSCULAR VOLUME 95 FL (80-99); PLATELET COUNT 110 K/UL (150-450); RED BLOOD COUNT 2.47 M/UL (4.70-6.10); RED CELL DISTRIBUTION WIDTH 18.2 % (11.6-14.8); WHITE BLOOD COUNT 5.7 K/UL (4.8-10.8)
[2017-06-18] MEDS: Docusate 100mg cap ORAL SCH ×3 (08:44→19:08)
[2017-06-18 09:00] LABS: ALANINE AMINOTRANSFERASE 138 U/L (12-78); ALBUMIN 2.2 G/DL (3.4-5.0); ALBUMIN/GLOBULIN RATIO 0.5 (1.0-2.7); ALKALINE PHOSPHATASE 143 U/L (46-116); ANION GAP 5 mmol/L (5-15); ASPARTATE AMINO TRANSFERASE 23 U/L (15-37); BLOOD UREA NITROGEN 44 mg/dL (7-18); CALCIUM 8.4 MG/DL (8.5-10.1); CARBON DIOXIDE 35 MMOL/L (21-32); CHLORIDE 94 MMOL/L (98-107); CREATININE 10.8 MG/DL (0.55-1.30); POTASSIUM 3.7 MMOL/L (3.5-5.1); SODIUM 134 MMOL/L (136-145)
[2017-06-18] MEDS: Carvedilol 25mg Tab ORAL SCH ×2 (09:00→21:07)
[2017-06-18] MEDS: Lisinopril 20mg tab ORAL SCH ×2 (09:00→18:00)
[2017-06-18] MEDS: ALPRAZolam 0.5mg tab ORAL SCH ×2 (09:00→21:08)
--- NOTE | 2017-06-18 09:30 | General Progress Note ---
Assessment/Plan Assessment/Plan #. Anemia secondary to chronic disease. --> S/P blood transfusion as hemoglobin dropped below goal. Currently hgb is 7.4 --> S/P abd CAT scan revealing evidence of hepatic cirrhosis. --> Hepatosplenomegaly. Ascites. There is also evidence of generalized anasarca , with pleural fluid and generalized subcutaneous edema --> Continue to closely monitor and trend cbc daily. --> Anemia workup completed and reviewed. Iron 42, TIBC 180, Ferritin 593, B12 876. --> Ferritin is >500, hgb goal is >7 --> Anemia w/u has been reviewed --> ++Occult blood. Consider GI Services and Recs. #. Anemia of kidney disease --> HD as needed per nephrology team --> Monitor closely. #. Generalized body ache related to fluid overload. #. End-stage renal disease, on hemodialysis. --> Monitor. #. Tachycardia, to be seen by Cardiology Service, isolated T-wave and ST- segment depression in V6. --> HR has been ~80-90bpm --> S/P Chest CT -- Evidence of worsening CHF/interstitial edema. --> Monitor for improvement. #. Elevated BNP, potentially related to underlying CKD. Subjective Date patient seen: Jun 17, 2017 Constitutional: Denies: no symptoms, chills, diaphoresis, fever, malaise, weakness, other HEENT: Denies: no symptoms, eye pain, blurred vision, tearing, double vision, ear pain, ear discharge, nose pain, nose congestion, throat pain, throat swelling, mouth pain, mouth swelling, other Cardiovascular: Denies: no symptoms, chest pain, edema, irregular heart rate, lightheadedness, palpitations, syncope, other Respiratory: Denies: no symptoms, cough, orthopnea, shortness of breath, SOB with excertion, SOB at rest, sputum, stridor, wheezing, other Gastrointestinal/Abdominal: Denies: no symptoms, abdomen distended, abdominal pain, black stools, tarry stools, blood in stool, constipated, diarrhea, difficulty swallowing, nausea, poor appetite, poor fluid intake, rectal bleeding , vomiting, other Genitourinary: Denies: no symptoms, burning, discharge, frequency, flank pain, hematuria, incontinence, pain, urgency, other Neurologic/Psychiatric: Denies: no symptoms, anxiety, depressed, emotional problems, headache, numbness, paresthesia, pre-existing deficit, seizure, tingling, tremors, weakness, other Hematologic/Lymphatic: Reports: anemia Allergies: Coded Allergies: No Known Allergies (Unverified , 10/24/15) Subjective No acute events. No fever or chills. Pending HD. Objective Last 24 Hour Vital Signs Date Time Temp Pulse Resp B/P (MAP) Pulse Ox O2 Delivery O2 Flow Rate FiO2 06/18/17 08:00 97.3 74 22 143/77 93 97.3 06/18/17 07:35 Nasal Cannula 4.0 36 06/18/17 07:30 92 Nasal Cannula 4.0 36 06/18/17 04:00 Nasal Cannula 4.0 06/17/17 23:00 Venturi Mask 4.0 06/17/17 21:36 76 119/71 06/17/17 20:27 Nasal Cannula 2.0 28 06/17/17 20:26 91 Nasal Cannula 2.0 28 06/17/17 20:00 97.5 77 20 117/72 95 Room Air 4.0 97.5 06/17/17 18:20 118/68 06/17/17 16:00 97.8 71 20 118/68 99 97.8 06/17/17 12:30 98.2 06/17/17 11:46 98.2 82 22 120/70 98 98.2 06/17/17 11:27 130/66 06/17/17 11:15 130/66 06/17/17 11:13 85 130/66 Intake and Output 06/17/17 06/18/17 19:00 07:00 Intake Total 1270 ml 900 ml Balance 1270 ml 900 ml Intake Oral 720 ml IV Total 550 ml 900 ml # Voids 1 # Bowel Movements 2 1 Laboratory Tests 06/18/17 08:00: White Blood Count 5.7, Red Blood Count 2.47L, Hemoglobin 7.1L, Hematocrit 23.5L , Mean Corpuscular Volume 95, Mean Corpuscular Hemoglobin 28.9, Mean Corpuscular Hemoglobin Concent 30.5L, Red Cell Distribution Width 18.2H, Platelet Count 110L, Mean Platelet Volume 7.6, Neutrophils (%) (Auto) , Lymphocytes (%) (Auto) , Monocytes (%) (Auto) , Eosinophils (%) (Auto) , Basophils (%) (Auto) , Neutrophils % (Manual) [Pending], Lymphocytes % (Manual) [Pending], Platelet Estimate [Pending], Platelet Morphology [Pending], Sodium Level 134L, Potassium Level 3.7, Chloride Level 94L, Carbon Dioxide Level 35H, Anion Gap 5, Blood Urea Nitrogen 44H, Creatinine 10.8H, Estimat Glomerular Filtration Rate 5.9, Glucose Level 120H, Calcium Level 8.4L, Total Bilirubin 1.0 , Aspartate Amino Transf (AST/SGOT) 23, Alanine Aminotransferase (ALT/SGPT) 138H , Alkaline Phosphatase 143H, Total Protein 6.9, Albumin 2.2L, Globulin 4.7, Albumin/Globulin Ratio 0.5L Height (Feet): 5 Height (Inches): 7.00 Weight (Pounds): 215 General Appearance: no apparent distress Respiratory/Chest: decreased breath sounds Abdomen: soft Irving Parker Jun 18, 2017 09:30
[2017-06-18 12:00] VITALS: BP 111/74
--- NOTE | 2017-06-18 12:53 | Nephrology Progress Note ---
Assessment/Plan Problem List: (1) ESRD (end stage renal disease) on dialysis (2) Shortness of breath (3) Anemia Assessment worsenning Anemia ESRD , missed HD , admitted with high K and pulmonary edema Acute respiratory distress due to volume overload elevated troponin r/o ACS h/o COPD ? exacerbation HTN urgency Cardiomyopathy L AICD anemia of chronic kidney disease Hx of CVA Plan Plan: Low H&H - consider transfusion HD next 06/18 Transfused Phos binders BP meds adjustment Optimize cardiac status per orders Subjective ROS Limited/Unobtainable: No Constitutional: Reports: malaise Objective Objective Last 24 Hour Vital Signs Date Time Temp Pulse Resp B/P (MAP) Pulse Ox O2 Delivery O2 Flow Rate FiO2 06/18/17 12:00 97.5 73 26 111/74 92 97.5 06/18/17 11:08 68 20 100 Facial 40 06/18/17 08:00 Nasal Cannula 4.0 06/18/17 08:00 97.3 74 22 143/77 93 97.3 06/18/17 07:35 Nasal Cannula 4.0 36 06/18/17 07:30 92 Nasal Cannula 4.0 36 06/18/17 04:00 Nasal Cannula 4.0 06/17/17 23:00 Venturi Mask 4.0 06/17/17 21:36 76 119/71 06/17/17 20:27 Nasal Cannula 2.0 28 06/17/17 20:26 91 Nasal Cannula 2.0 28 06/17/17 20:00 97.5 77 20 117/72 95 Room Air 4.0 97.5 06/17/17 18:20 118/68 06/17/17 16:00 97.8 71 20 118/68 99 97.8 Intake and Output 06/17/17 06/18/17 19:00 07:00 Intake Total 1270 ml 900 ml Balance 1270 ml 900 ml Intake Oral 720 ml IV Total 550 ml 900 ml # Voids 1 # Bowel Movements 2 1 Laboratory Tests 06/18/17 08:00: White Blood Count 5.7, Red Blood Count 2.47L, Hemoglobin 7.1L, Hematocrit 23.5L , Mean Corpuscular Volume 95, Mean Corpuscular Hemoglobin 28.9, Mean Corpuscular Hemoglobin Concent 30.5L, Red Cell Distribution Width 18.2H, Platelet Count 110L, Mean Platelet Volume 7.6, Neutrophils (%) (Auto) , Lymphocytes (%) (Auto) , Monocytes (%) (Auto) , Eosinophils (%) (Auto) , Basophils (%) (Auto) , Differential Total Cells Counted 100, Neutrophils % ( Manual) 51, Lymphocytes % (Manual) 33, Monocytes % (Manual) 15H, Eosinophils % ( Manual) 1, Basophils % (Manual) 0, Band Neutrophils 0, Platelet Estimate DecreasedL, Platelet Morphology Normal, Hypochromasia 1+, Anisocytosis 1+, Sodium Level 134L, Potassium Level 3.7, Chloride Level 94L, Carbon Dioxide Level 35H, Anion Gap 5, Blood Urea Nitrogen 44H, Creatinine 10.8H, Estimat Glomerular Filtration Rate 5.9, Glucose Level 120H, Calcium Level 8.4L, Total Bilirubin 1.0, Aspartate Amino Transf (AST/SGOT) 23, Alanine Aminotransferase ( ALT/SGPT) 138H, Alkaline Phosphatase 143H, Total Protein 6.9, Albumin 2.2L, Globulin 4.7, Albumin/Globulin Ratio 0.5L Height (Feet): 5 Height (Inches): 7.00 Weight (Pounds): 215 General Appearance: no apparent distress Objective no change LIAM MONTELONGO Jun 18, 2017 12:53
--- NOTE | 2017-06-18 13:42 | Internal Med Progress Note ---
Subjective Date of Service: Jun 18, 2017 Physician Name Pires,Zoey Attending Physician Chaitanya Weinstein MD Current Medications Medications (Trade) Dose Ordered Sig/Jose Route PRN Reason Start Time Stop Time Status Last Admin Dose Admin Acetaminophen (Tylenol) 650 mg Q4H PRN RECTAL Mild Pain (Pain Scale 1-3) 06/16/17 19:00 07/09/17 18:59 Alprazolam (Xanax) 2 mg DAILYPRN PRN ORAL Agitation 06/16/17 18:45 06/23/17 18:44 06/18/17 05:44 Alprazolam (Xanax) 2 mg Q12HR ORAL 06/16/17 21:00 06/20/17 20:59 06/17/17 21:35 Amikacin Sulfate 950 mg/Sodium Chloride 113.8 ml @ 227.6 mls/ hr FRI-FRI-FRI IV 06/18/17 21:00 06/25/17 23:59 Amphotericin B 50 mg/Dextrose 500 ml @ 100 mls/hr Q24H IV 06/16/17 20:00 06/21/17 19:59 06/17/17 19:59 Carisoprodol (Soma) 350 mg BID ORAL 06/17/17 20:00 07/15/17 19:59 06/18/17 08:45 Carisoprodol (Soma) 350 mg Q6H PRN ORAL MUSCLE SPASMS 06/16/17 19:00 07/14/17 18:59 06/17/17 21:35 Carvedilol (Coreg) 25 mg EVERY 12 HOURS ORAL 06/16/17 21:00 07/04/17 11:29 06/17/17 21:36 Chlorhexidine Gluconate (Mireille-Hex 2%) 1 applic DAILY@2000 TOPIC 06/16/17 20:00 07/05/17 19:59 06/17/17 19:59 Clonidine HCl (Catapres Tab) 0.1 mg Q4H PRN ORAL bp over 160 syst 06/16/17 19:00 07/03/17 18:59 Dextrose 1,000 ml @ 50 mls/hr Q20H IV 06/16/17 19:00 07/14/17 18:59 06/18/17 13:16 Dextrose (Dextrose 50%) STAT PRN IV Hypoglycemia 06/16/17 19:00 07/14/17 18:59 Docusate Sodium (Colace) 100 mg THREE TIMES A DAY ORAL 06/17/17 20:00 07/03/17 19:59 06/18/17 13:23 Ethambutol HCl (Myambutol) 1,000 mg 3XW ORAL 06/18/17 09:00 07/18/17 23:59 Levofloxacin (Levaquin) 750 mg EVERY OTHER DAY@2000 ORAL 06/17/17 20:00 06/24/17 19:59 06/17/17 19:58 Lisinopril (Prinivil) 20 mg BID ORAL 06/17/17 09:00 07/04/17 08:59 06/17/17 18:20 Meperidine HCl (Demerol) 25 mg ONCE PRN IM RIGOR AFTER AMPHO DOSE 06/16/17 19:00 06/23/17 18:59 Metronidazole (Flagyl) 500 mg Q8HR ORAL 06/17/17 22:00 06/24/17 21:59 06/18/17 05:35 Morphine Sulfate (Morphine Sulfate) 2 mg Q4H PRN IVP Moderate Pain (Pain Scale 4-6) 06/17/17 14:45 06/24/17 14:44 06/18/17 03:27 Nitroglycerin (Ntg) 0.4 mg Q5M PRN SL Prn Chest Pain 06/16/17 18:15 07/04/17 09:14 Nitroglycerin (Ntg) 1 patch Q24H TDERMAL 06/17/17 11:30 07/04/17 11:29 06/17/17 11:15 Ondansetron HCl (Zofran) 4 mg Q6H PRN IVP Nausea & Vomiting 06/16/17 18:30 07/14/17 18:29 Pantoprazole (Protonix) 40 mg ACBREAKFAST ORAL 06/17/17 06:30 07/15/17 06:29 06/18/17 05:35 Polyethylene Glycol (Miralax) 17 gm DAILYPRN PRN ORAL Constipation 06/16/17 18:30 07/14/17 18:29 Promethazine HCl/ Codeine (Phenergan with Codeine) 5 ml Q4H PRN ORAL For Cough 06/16/17 18:30 3/31/18 18:29 Sevelamer Carbonate (Renvela) 2,400 mg THREE TIMES A DAY ORAL 06/16/17 18:45 07/16/17 18:44 06/18/17 13:16 Allergies: Coded Allergies: No Known Allergies (Unverified , 10/24/15) ROS Limited/Unobtainable: No Constitutional: Reports: no symptoms HEENT: Reports: no symptoms Cardiovascular: Reports: no symptoms Respiratory: Reports: shortness of breath Gastrointestinal/Abdominal: Reports: no symptoms Genitourinary: Reports: no symptoms Neurologic/Psychiatric: Reports: no symptoms Subjective 57 YO M admitted with chest pain and shortness of breath. Now pneumonia and candelaria heart failure. Tolerating venturi mask. Cover for Int Misbah-Dr Weinstein. Objective Last Vital Signs Date Time Temp Pulse Resp B/P (MAP) Pulse Ox O2 Delivery O2 Flow Rate FiO2 06/18/17 12:00 97.5 73 26 111/74 92 97.5 06/18/17 12:00 Nasal Cannula 4.0 06/18/17 11:08 40 Laboratory Tests Test 06/18/17 08:00 White Blood Count 5.7 K/UL (4.8-10.8) Red Blood Count 2.47 M/UL (4.70-6.10) L Hemoglobin 7.1 G/DL (14.2-18.0) L Hematocrit 23.5 % (42.0-52.0) L Mean Corpuscular Volume 95 FL (80-99) Mean Corpuscular Hemoglobin 28.9 PG (27.0-31.0) Mean Corpuscular Hemoglobin Concent 30.5 G/DL (32.0-36.0) L Red Cell Distribution Width 18.2 % (11.6-14.8) H Platelet Count 110 K/UL (150-450) L Mean Platelet Volume 7.6 FL (6.5-10.1) Neutrophils (%) (Auto) % (45.0-75.0) Lymphocytes (%) (Auto) % (20.0-45.0) Monocytes (%) (Auto) % (1.0-10.0) Eosinophils (%) (Auto) % (0.0-3.0) Basophils (%) (Auto) % (0.0-2.0) Differential Total Cells Counted 100 Neutrophils % (Manual) 51 % (45-75) Lymphocytes % (Manual) 33 % (20-45) Monocytes % (Manual) 15 % (1-10) H Eosinophils % (Manual) 1 % (0-3) Basophils % (Manual) 0 % (0-2) Band Neutrophils 0 % (0-8) Platelet Estimate Decreased L Platelet Morphology Normal Hypochromasia 1+ Anisocytosis 1+ Sodium Level 134 MMOL/L (136-145) L Potassium Level 3.7 MMOL/L (3.5-5.1) Chloride Level 94 MMOL/L (98-107) L Carbon Dioxide Level 35 MMOL/L (21-32) H Anion Gap 5 mmol/L (5-15) Blood Urea Nitrogen 44 mg/dL (7-18) H Creatinine 10.8 MG/DL (0.55-1.30) H Estimat Glomerular Filtration Rate 5.9 mL/min (>60) Glucose Level 120 MG/DL (74-106) H Calcium Level 8.4 MG/DL (8.5-10.1) L Total Bilirubin 1.0 MG/DL (0.2-1.0) Aspartate Amino Transf (AST/SGOT) 23 U/L (15-37) Alanine Aminotransferase (ALT/SGPT) 138 U/L (12-78) H Alkaline Phosphatase 143 U/L (46-116) H Total Protein 6.9 G/DL (6.4-8.2) Albumin 2.2 G/DL (3.4-5.0) L Globulin 4.7 g/dL Albumin/Globulin Ratio 0.5 (1.0-2.7) L Intake and Output 06/17/17 06/18/17 19:00 07:00 Intake Total 1270 ml 900 ml Balance 1270 ml 900 ml Intake Oral 720 ml IV Total 550 ml 900 ml # Voids 1 # Bowel Movements 2 1 Objective General Appearance: WD/WN, alert, moderate distress EENT: PERRL/EOMI, normal ENT inspection Neck: non-tender, normal alignment, supple, normal inspection Cardiovascular: normal peripheral pulses, normal rate, regular rhythm, no gallop/murmur, no JVD Respiratory/Chest: Nasal canula; respiratory distress, crackles/rales, rhonchi - bilaterally, expiratory wheezing Abdomen: normal bowel sounds, non tender, soft, no organomegaly, no mass Extremities: normal range of motion 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 Currently on venturi mask. See pulmonay note. (2) Pleuritic chest pain (3) Hemoptysis Assessment & Plan: Due to pneumonia (4) Pneumonia Assessment & Plan: RUL and cavitary. Concerning for TB. Await AFB cultures- see ID consult. Continue vanco and ethambutol per ID (5) Shortness of breath (6) ESRD (end stage renal disease) on dialysis Assessment & Plan: See nephrology note. Hemodialysis 06/14/17 per nephrology (7) Hyperkalemia Assessment & Plan: Due to renal failure. Hemodialysis 06/12/17 per nephrology (8) COPD (chronic obstructive pulmonary disease) (9) HTN (hypertension) Assessment & Plan: Continue coreg and lisinopril. (10) CHF (congestive heart failure) (11) Elevated troponin Assessment & Plan: ?due to renal failure? See cardiology note. (12) Intractable abdominal pain Assessment & Plan: See surgery note. Await CT abdomen ZOEY PIRES Jun 18, 2017 13:42
[2017-06-18 14:00] VITALS: BP 120/74
[2017-06-18] MEDS ORDERED: Tubing IV Secondary IV ONE (14:16)
[2017-06-18] MEDS ORDERED: Tubing Blood Filter IV ONE (14:16)
[2017-06-18] MEDS ORDERED: D5W 275ml ONE (14:16)
--- NOTE | 2017-06-18 14:51 | General Surgery Progress Note ---
General Surgery-Progress Note Subjective Symptoms: improved Additional Comments pain improved. doing well. no acute events. labs improving. Objective Last 24 Hour Vital Signs Date Time Temp Pulse Resp B/P (MAP) Pulse Ox O2 Delivery O2 Flow Rate FiO2 06/18/17 12:00 97.5 73 26 111/74 92 97.5 06/18/17 12:00 Nasal Cannula 4.0 06/18/17 11:08 68 20 100 Facial 40 06/18/17 09:00 111/74 06/18/17 09:00 73 111/74 06/18/17 08:00 Nasal Cannula 4.0 06/18/17 08:00 97.3 74 22 143/77 93 97.3 06/18/17 07:35 Nasal Cannula 4.0 36 06/18/17 07:30 92 Nasal Cannula 4.0 36 06/18/17 04:00 Nasal Cannula 4.0 06/17/17 23:00 Venturi Mask 4.0 06/17/17 21:36 76 119/71 06/17/17 20:27 Nasal Cannula 2.0 28 06/17/17 20:26 91 Nasal Cannula 2.0 28 06/17/17 20:00 97.5 77 20 117/72 95 Room Air 4.0 97.5 06/17/17 18:20 118/68 06/17/17 16:00 97.8 71 20 118/68 99 97.8 I&O Intake and Output 06/17/17 06/18/17 19:00 07:00 Intake Total 1270 ml 900 ml Balance 1270 ml 900 ml Intake Oral 720 ml IV Total 550 ml 900 ml # Voids 1 # Bowel Movements 2 1 Drains: none Cardiovascular: RSR Respiratory: clear Abdomen: soft, tenderness, present bowel sounds Extremities: no cyanosis Laboratory Tests Test 06/18/17 08:00 White Blood Count 5.7 K/UL (4.8-10.8) Red Blood Count 2.47 M/UL (4.70-6.10) L Hemoglobin 7.1 G/DL (14.2-18.0) L Hematocrit 23.5 % (42.0-52.0) L Mean Corpuscular Volume 95 FL (80-99) Mean Corpuscular Hemoglobin 28.9 PG (27.0-31.0) Mean Corpuscular Hemoglobin Concent 30.5 G/DL (32.0-36.0) L Red Cell Distribution Width 18.2 % (11.6-14.8) H Platelet Count 110 K/UL (150-450) L Mean Platelet Volume 7.6 FL (6.5-10.1) Neutrophils (%) (Auto) % (45.0-75.0) Lymphocytes (%) (Auto) % (20.0-45.0) Monocytes (%) (Auto) % (1.0-10.0) Eosinophils (%) (Auto) % (0.0-3.0) Basophils (%) (Auto) % (0.0-2.0) Differential Total Cells Counted 100 Neutrophils % (Manual) 51 % (45-75) Lymphocytes % (Manual) 33 % (20-45) Monocytes % (Manual) 15 % (1-10) H Eosinophils % (Manual) 1 % (0-3) Basophils % (Manual) 0 % (0-2) Band Neutrophils 0 % (0-8) Platelet Estimate Decreased L Platelet Morphology Normal Hypochromasia 1+ Anisocytosis 1+ Sodium Level 134 MMOL/L (136-145) L Potassium Level 3.7 MMOL/L (3.5-5.1) Chloride Level 94 MMOL/L (98-107) L Carbon Dioxide Level 35 MMOL/L (21-32) H Anion Gap 5 mmol/L (5-15) Blood Urea Nitrogen 44 mg/dL (7-18) H Creatinine 10.8 MG/DL (0.55-1.30) H Estimat Glomerular Filtration Rate 5.9 mL/min (>60) Glucose Level 120 MG/DL (74-106) H Calcium Level 8.4 MG/DL (8.5-10.1) L Total Bilirubin 1.0 MG/DL (0.2-1.0) Aspartate Amino Transf (AST/SGOT) 23 U/L (15-37) Alanine Aminotransferase (ALT/SGPT) 138 U/L (12-78) H Alkaline Phosphatase 143 U/L (46-116) H Total Protein 6.9 G/DL (6.4-8.2) Albumin 2.2 G/DL (3.4-5.0) L Globulin 4.7 g/dL Albumin/Globulin Ratio 0.5 (1.0-2.7) L Plan Problems: (1) Intractable abdominal pain Assessment & Plan: 57M with abdominal pain. elevated lft's and ultrasound reviewed. has liver cirrhosis, ascites, and gallbladder findings on ultrasound likely secondary to intrinsic liver disease. on exam his abdominal pain is fairly superficial and around this right abd upper and lower and right flank. he has edema and thickening of the right subcutaneous tissues as compared to the left. possible abscess vs cellulitis? Ultrasound findings: Impression: Ascites Evidence of hepatic cirrhosis Cholelithiasis. There is gallbladder wall thickening, likely related to hemodynamic abnormalities related to the hepatic abnormality, particularly as this is evident on the prior exam of 2 years earlier. However, acute cholecystitis cannot be completely ruled out, and hepatobiliary scanning is recommended if there is high clinical suspicion CT findings: Impression: Evidence of hepatic cirrhosis. Hepatosplenomegaly Ascites. There is also evidence of generalized anasarca, with pleural fluid and generalized subcutaneous edema Cholelithiasis, also previously reported Possible diverticulosis. No evidence of diverticulitis Nonvisualized appendix. No evidence of appendicitis Left renal cysts. Subcentimeter right lobe hepatic and bilateral renal lesions, too small to characterize, most likely benign simple cysts. No further follow-up necessary Bilateral pleural effusions and parenchymal consolidation. LFT's improving. but still no clear explanation as to acute elevation in LFT' s. Right sided abdominal pain improved CT A/P reviewed. Hep C + -given exam, radiological findings, history, unlikely to be acute cholecystitis. exam with discomfort in right upper/lower/flank region and improving ultrasound findings similar to that of two years ago. pain could be from hepatomegaly? or even from significant subcutaneous edema/anasarca in that area. -no acute surgical intervention recommended at this time. -cont abx -will follow with recs. Ever Parham Jun 18, 2017 14:51
[2017-06-18 16:00] VITALS: BP 137/76
--- NOTE | 2017-06-18 16:06 | Infectious Diseases Prog Note ---
Assessment/Plan Assessment/Plan Cavitary PNA. SCx: Neg ( m/l necrotizing Pneum, less likely fungal and doubt TB ) Rsp status improved up to yesterday but on 06/[address] his condition worsen T-SPOT :Neg AFB x 3 : Neg MTB PCR x2 : neg cryptococcus Ag : neg CT chest 06/15: Slightly smaller (6 cm diameter ) but mostly unchanged cavitary lesion in the right lung, previously thought to represent a cavitating inflammatory process. Lung abscess is certainly a possibility. Fairly extensive bilateral pulmonary parenchymal consolidation, slightly increased from previous exam of 06/05/2017. Likely a combination of pulmonary edema and pneumonia. Small right and trace left pleural effusion, new/increased from the previous study. CT 06/05: 7.8 x 5.3 x 6.6 cm dense opacity in the posterior inferior right upper lobe with a central cavitation. Chest x-ray : right mid lung infiltrate, possible cavitation Rule out tuberculosis, fungal infection, or necrotizing pneumonia. CRP 14 Influenza negative Low-grade fever, SP Status post leukocytosis. Transaminitis , probably 2/2 Hep C cirrhosis- repeat hep C ab repoted as not dectected -?? called lab to clarify this results, Hep C VL p -CT abd/p: Evidence of hepatic cirrhosis. Hepatosplenomegaly. evidence of generalized anasarca, with pleural fluid and generalized subcutaneous edema. Cholelithiasis, also previously reported. Possible diverticulosis. No evidence of diverticulitis US Abd : Cholelithiasis. There is gallbladder wall thickening, likely related to hemodynamic abnormalities Splenomegaly. Evidence of hepatic cirrhosis HIV : NEG Hep Panel B neg , C Ab : +ve , VL p leukopenia and TCP 2/2 splenomegaly Seizure disorder History of CVA History of pacemaker placement Hyperlipidemia Hypertension COPD/asthma End-stage renal disease, on hemodialysis Diabetes Anxiety Anemia Echo, ejection fraction 45% to 50%. PLAN: Cont empiric AmphoB #5( possible Aspergillosis) pending cultures and fungal serologies -Continue Flagyl (in addition with Levaquin will provide anaerobic coverage for possible aspiration/cavitary PNA as no isolation of resistant organisms); abx d # 16/21-28 Continue empiric Ethambutol , amikacin d# 5 and Levaquin d# 6 ( TB Control recs to start TB Rx, doubt that this is needed at his time pt has pt improved initially, wups so far neg for TB, has increased of LFT , ) 06/17 SP IV Vancomycin #14, Meropenem #5 3/9 SP Zosyn d# 10 3/4 SP Zithromax D# 6 f/u sputum culture (, fungal, and AFB x3). f/u Coccidioidal ,Galactomannan and Fungitell, Histoplasma ag urine and ab, blastomycies ab Airborne isolation for now may need BAL , will defer this to Pul team f/u Hep C PCR may need JIMY ro SBE w emboli to lung ( hx of AICD ) Subjective Allergies: Coded Allergies: No Known Allergies (Unverified , 10/24/15) Subjective afebrile no leukocytosis LFTs improving fungal serologies pending Objective Vital Signs Last 24 Hour Vital Signs Date Time Temp Pulse Resp B/P (MAP) Pulse Ox O2 Delivery O2 Flow Rate FiO2 06/18/17 12:00 97.5 73 26 111/74 92 97.5 06/18/17 12:00 Nasal Cannula 4.0 06/18/17 11:08 68 20 100 Facial 40 06/18/17 09:00 111/74 06/18/17 09:00 73 111/74 06/18/17 08:00 Nasal Cannula 4.0 06/18/17 08:00 97.3 74 22 143/77 93 97.3 06/18/17 07:35 Nasal Cannula 4.0 36 06/18/17 07:30 92 Nasal Cannula 4.0 36 06/18/17 04:00 Nasal Cannula 4.0 06/17/17 23:00 Venturi Mask 4.0 06/17/17 21:36 76 119/71 06/17/17 20:27 Nasal Cannula 2.0 28 06/17/17 20:26 91 Nasal Cannula 2.0 28 06/17/17 20:00 97.5 77 20 117/72 95 Room Air 4.0 97.5 06/17/17 18:20 118/68 06/17/17 16:00 97.8 71 20 118/68 99 97.8 Height (Feet): 5 Height (Inches): 7.00 Weight (Pounds): 215 Objective General Appearance: WD/WN, alert, moderate distress EENT: PERRL/EOMI, normal ENT inspection Neck: non-tender, normal alignment, supple, normal inspection Cardiovascular: normal peripheral pulses, normal rate, regular rhythm, no gallop/murmur, no JVD Respiratory/Chest: Non rebreather; respiratory distress, crackles/rales, rhonchi - bilaterally, expiratory wheezing Abdomen: normal bowel sounds, non tender, soft, no organomegaly, no mass Extremities: normal range of motion 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, no motor/sensory deficits Skin: normal pigmentation, warm/dry Laboratory Tests Test 06/18/17 08:00 White Blood Count 5.7 K/UL (4.8-10.8) Red Blood Count 2.47 M/UL (4.70-6.10) L Hemoglobin 7.1 G/DL (14.2-18.0) L Hematocrit 23.5 % (42.0-52.0) L Mean Corpuscular Volume 95 FL (80-99) Mean Corpuscular Hemoglobin 28.9 PG (27.0-31.0) Mean Corpuscular Hemoglobin Concent 30.5 G/DL (32.0-36.0) L Red Cell Distribution Width 18.2 % (11.6-14.8) H Platelet Count 110 K/UL (150-450) L Mean Platelet Volume 7.6 FL (6.5-10.1) Neutrophils (%) (Auto) % (45.0-75.0) Lymphocytes (%) (Auto) % (20.0-45.0) Monocytes (%) (Auto) % (1.0-10.0) Eosinophils (%) (Auto) % (0.0-3.0) Basophils (%) (Auto) % (0.0-2.0) Differential Total Cells Counted 100 Neutrophils % (Manual) 51 % (45-75) Lymphocytes % (Manual) 33 % (20-45) Monocytes % (Manual) 15 % (1-10) H Eosinophils % (Manual) 1 % (0-3) Basophils % (Manual) 0 % (0-2) Band Neutrophils 0 % (0-8) Platelet Estimate Decreased L Platelet Morphology Normal Hypochromasia 1+ Anisocytosis 1+ Sodium Level 134 MMOL/L (136-145) L Potassium Level 3.7 MMOL/L (3.5-5.1) Chloride Level 94 MMOL/L (98-107) L Carbon Dioxide Level 35 MMOL/L (21-32) H Anion Gap 5 mmol/L (5-15) Blood Urea Nitrogen 44 mg/dL (7-18) H Creatinine 10.8 MG/DL (0.55-1.30) H Estimat Glomerular Filtration Rate 5.9 mL/min (>60) Glucose Level 120 MG/DL (74-106) H Calcium Level 8.4 MG/DL (8.5-10.1) L Total Bilirubin 1.0 MG/DL (0.2-1.0) Aspartate Amino Transf (AST/SGOT) 23 U/L (15-37) Alanine Aminotransferase (ALT/SGPT) 138 U/L (12-78) H Alkaline Phosphatase 143 U/L (46-116) H Total Protein 6.9 G/DL (6.4-8.2) Albumin 2.2 G/DL (3.4-5.0) L Globulin 4.7 g/dL Albumin/Globulin Ratio 0.5 (1.0-2.7) L Current Medications Medications (Trade) Dose Ordered Sig/Jose Route PRN Reason Start Time Stop Time Status Last Admin Dose Admin Acetaminophen (Tylenol) 650 mg Q4H PRN RECTAL Mild Pain (Pain Scale 1-3) 06/16/17 19:00 07/09/17 18:59 Alprazolam (Xanax) 2 mg DAILYPRN PRN ORAL Agitation 06/16/17 18:45 06/23/17 18:44 06/18/17 05:44 Alprazolam (Xanax) 2 mg Q12HR ORAL 06/16/17 21:00 06/20/17 20:59 06/17/17 21:35 Amikacin Sulfate 950 mg/Sodium Chloride 113.8 ml @ 227.6 mls/ hr FRI-FRI-FRI IV 06/18/17 21:00 06/25/17 23:59 Amphotericin B 50 mg/Dextrose 500 ml @ 100 mls/hr Q24H IV 06/16/17 20:00 06/21/17 19:59 06/17/17 19:59 Carisoprodol (Soma) 350 mg BID ORAL 06/17/17 20:00 07/15/17 19:59 06/18/17 08:45 Carisoprodol (Soma) 350 mg Q6H PRN ORAL MUSCLE SPASMS 06/16/17 19:00 07/14/17 18:59 06/17/17 21:35 Carvedilol (Coreg) 25 mg EVERY 12 HOURS ORAL 06/16/17 21:00 07/04/17 11:29 06/17/17 21:36 Chlorhexidine Gluconate (Mireille-Hex 2%) 1 applic DAILY@1999 TOPIC 06/16/17 20:00 07/05/17 19:59 06/17/17 19:59 Clonidine HCl (Catapres Tab) 0.1 mg Q4H PRN ORAL bp over 160 syst 06/16/17 19:00 07/03/17 18:59 Dextrose 1,000 ml @ 50 mls/hr Q20H IV 06/16/17 19:00 07/14/17 18:59 06/18/17 13:16 Dextrose (Dextrose 50%) STAT PRN IV Hypoglycemia 06/16/17 19:00 07/14/17 18:59 Docusate Sodium (Colace) 100 mg THREE TIMES A DAY ORAL 06/17/17 20:00 07/03/17 19:59 06/18/17 13:23 Ethambutol HCl (Myambutol) 1,000 mg 3XW ORAL 06/18/17 09:00 07/18/17 23:59 Levofloxacin (Levaquin) 750 mg EVERY OTHER DAY@1999 ORAL 06/17/17 20:00 06/24/17 19:59 06/17/17 19:58 Lisinopril (Prinivil) 20 mg BID ORAL 06/17/17 09:00 07/04/17 08:59 06/17/17 18:20 Meperidine HCl (Demerol) 25 mg ONCE PRN IM RIGOR AFTER AMPHO DOSE 06/16/17 19:00 06/23/17 18:59 Metronidazole (Flagyl) 500 mg Q8HR ORAL 06/17/17 22:00 06/24/17 21:59 06/18/17 05:35 Morphine Sulfate (Morphine Sulfate) 2 mg Q4H PRN IVP Moderate Pain (Pain Scale 4-6) 06/17/17 14:45 06/24/17 14:44 06/18/17 13:40 Nitroglycerin (Ntg) 0.4 mg Q5M PRN SL Prn Chest Pain 3/12/18 18:15 07/04/17 09:14 Nitroglycerin (Ntg) 1 patch Q24H TDERMAL 06/17/17 11:30 07/04/17 11:29 06/17/17 11:15 Ondansetron HCl (Zofran) 4 mg Q6H PRN IVP Nausea & Vomiting 06/16/17 18:30 07/14/17 18:29 Pantoprazole (Protonix) 40 mg ACBREAKFAST ORAL 06/17/17 06:30 07/15/17 06:29 06/18/17 05:35 Polyethylene Glycol (Miralax) 17 gm DAILYPRN PRN ORAL Constipation 06/16/17 18:30 07/14/17 18:29 Promethazine HCl/ Codeine (Phenergan with Codeine) 5 ml Q4H PRN ORAL For Cough 06/16/17 18:30 07/05/17 18:29 Sevelamer Carbonate (Renvela) 2,400 mg THREE TIMES A DAY ORAL 06/16/17 18:45 07/16/17 18:44 06/18/17 13:16 Aleja Crocker M.D. Jun 18, 2017 16:06
[2017-06-18 17:40] VITALS: BP 123/66
--- NOTE | 2017-06-18 19:10 | Pulmonology Progress Note ---
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0 06/18/17 11:08 68 20 100 Facial 40 06/18/17 09:00 111/74 06/18/17 09:00 73 111/74 06/18/17 08:00 Nasal Cannula 4.0 06/18/17 08:00 97.3 74 22 143/77 93 97.3 06/18/17 07:35 Nasal Cannula 4.0 36 06/18/17 07:30 92 Nasal Cannula 4.0 36 06/18/17 04:00 Nasal Cannula 4.0 06/17/17 23:00 Venturi Mask 4.0 06/17/17 21:36 76 119/71 06/17/17 20:27 Nasal Cannula 2.0 28 06/17/17 20:26 91 Nasal Cannula 2.0 28 06/17/17 20:00 97.5 77 20 117/72 95 Room Air 4.0 97.5 Intake and Output 06/17/17 06/18/17 19:00 07:00 Intake Total 1270 ml 900 ml Balance 1270 ml 900 ml Intake Oral 720 ml IV Total 550 ml 900 ml # Voids 1 # Bowel Movements 2 1 Objective General Appearance: WD/WN HEENT: normocephalic, atraumatic, anicteric Respiratory/Chest: loud rhonchi Cardiovascular: normal peripheral pulses, normal rate, regular rhythm Abdomen: normal bowel sounds, soft, non tender, no organomegaly Genitourinary: normal external genitalia Extremities: no cyanosis Skin: no rash, no lesions 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, no motor/sensory deficits Lymphatic: no neck adenopathy, no groin adenopathy Laboratory Tests 06/18/17 08:00: White Blood Count 5.7, Red Blood Count 2.47L, Hemoglobin 7.1L, Hematocrit 23.5L , Mean Corpuscular Volume 95, Mean Corpuscular Hemoglobin 28.9, Mean Corpuscular Hemoglobin Concent 30.5L, Red Cell Distribution Width 18.2H, Platelet Count 110L, Mean Platelet Volume 7.6, Neutrophils (%) (Auto) , Lymphocytes (%) (Auto) , Monocytes (%) (Auto) , Eosinophils (%) (Auto) , Basophils (%) (Auto) , Differential Total Cells Counted 100, Neutrophils % ( Manual) 51, Lymphocytes % (Manual) 33, Monocytes % (Manual) 15H, Eosinophils % ( Manual) 1, Basophils % (Manual) 0, Band Neutrophils 0, Platelet Estimate DecreasedL, Platelet Morphology Normal, Hypochromasia 1+, Anisocytosis 1+, Sodium Level 134L, Potassium Level 3.7, Chloride Level 94L, Carbon Dioxide Level 35H, Anion Gap 5, Blood Urea Nitrogen 44H, Creatinine 10.8H, Estimat Glomerular Filtration Rate 5.9, Glucose Level 120H, Calcium Level 8.4L, Total Bilirubin 1.0, Aspartate Amino Transf (AST/SGOT) 23, Alanine Aminotransferase ( ALT/SGPT) 138H, Alkaline Phosphatase 143H, Total Protein 6.9, Albumin 2.2L, Globulin 4.7, Albumin/Globulin Ratio 0.5L Current Medications Medications (Trade) Dose Ordered Sig/Jose Route PRN Reason Start Time Stop Time Status Last Admin Dose Admin Acetaminophen (Tylenol) 650 mg Q4H PRN RECTAL Mild Pain (Pain Scale 1-3) 06/16/17 19:00 07/09/17 18:59 Alprazolam (Xanax) 2 mg DAILYPRN PRN ORAL Agitation 06/16/17 18:45 06/23/17 18:44 06/18/17 05:44 Alprazolam (Xanax) 2 mg Q12HR ORAL 06/16/17 21:00 06/20/17 20:59 06/17/17 21:35 Amikacin Sulfate 950 mg/Sodium Chloride 113.8 ml @ 227.6 mls/ hr FRI- IV 06/18/17 21:00 06/25/17 23:59 Amphotericin B 50 mg/Dextrose 500 ml @ 100 mls/hr Q24H IV 06/16/17 20:00 06/21/17 19:59 06/17/17 19:59 Carisoprodol (Soma) 350 mg BID ORAL 06/17/17 20:00 07/15/17 19:59 06/18/17 08:45 Carisoprodol (Soma) 350 mg Q6H PRN ORAL MUSCLE SPASMS 06/16/17 19:00 07/14/17 18:59 06/17/17 21:35 Carvedilol (Coreg) 25 mg EVERY 12 HOURS ORAL 06/16/17 21:00 07/04/17 11:29 06/17/17 21:36 Chlorhexidine Gluconate (Mireille-Hex 2%) 1 applic DAILY@1999 TOPIC 06/16/17 20:00 07/05/17 19:59 06/17/17 19:59 Clonidine HCl (Catapres Tab) 0.1 mg Q4H PRN ORAL bp over 160 syst 06/16/17 19:00 07/03/17 18:59 Dextrose 1,000 ml @ 50 mls/hr Q20H IV 06/16/17 19:00 07/14/17 18:59 06/18/17 13:16 Dextrose (Dextrose 50%) STAT PRN IV Hypoglycemia 06/16/17 19:00 07/14/17 18:59 Docusate Sodium (Colace) 100 mg THREE TIMES A DAY ORAL 06/17/17 20:00 07/03/17 19:59 06/18/17 13:23 Ethambutol HCl (Myambutol) 1,000 mg 3XW ORAL 06/18/17 09:00 07/18/17 23:59 Levofloxacin (Levaquin) 750 mg EVERY OTHER DAY@1999 ORAL 06/17/17 20:00 06/24/17 19:59 06/17/17 19:58 Lisinopril (Prinivil) 20 mg BID ORAL 06/17/17 09:00 07/04/17 08:59 06/17/17 18:20 Meperidine HCl (Demerol) 25 mg ONCE PRN IM RIGOR AFTER AMPHO DOSE 06/16/17 19:00 06/23/17 18:59 Metronidazole (Flagyl) 500 mg Q8HR ORAL 06/17/17 22:00 06/24/17 21:59 06/18/17 15:56 Morphine Sulfate (Morphine Sulfate) 2 mg Q4H PRN IVP Moderate Pain (Pain Scale 4-6) 06/17/17 14:45 06/24/17 14:44 06/18/17 13:40 Nitroglycerin (Ntg) 0.4 mg Q5M PRN SL Prn Chest Pain 06/16/17 18:15 07/04/17 09:14 Nitroglycerin (Ntg) 1 patch Q24H TDERMAL 06/17/17 11:30 07/04/17 11:29 06/17/17 11:15 Ondansetron HCl (Zofran) 4 mg Q6H PRN IVP Nausea & Vomiting 06/16/17 18:30 07/14/17 18:29 Pantoprazole (Protonix) 40 mg ACBREAKFAST ORAL 06/17/17 06:30 07/15/17 06:29 06/18/17 05:35 Polyethylene Glycol (Miralax) 17 gm DAILYPRN PRN ORAL Constipation 06/16/17 18:30 07/14/17 18:29 Promethazine HCl/ Codeine (Phenergan with Codeine) 5 ml Q4H PRN ORAL For Cough 06/16/17 18:30 07/05/17 18:29 Sevelamer Carbonate (Renvela) 2,400 mg THREE TIMES A DAY ORAL 06/16/17 18:45 07/16/17 18:44 06/18/17 13:16 Christine Morgan MD Jun 18, 2017 19:09
[2017-06-18] MEDS: Nitroglycerin Patch 0.4mg TDERMAL SCH (19:17)
[2017-06-18 19:24] VITALS: BP 118/66
[2017-06-18] MEDS ORDERED: Amikacin 1,000 MG in NS 110 ML IV SCH ×4 (21:00)
[2017-06-18] MEDS: Dyna-Hex 2% Top Sol 2oz TOPIC SCH (21:06)
[2017-06-18] MEDS: D5W IV SCH (21:06)
[2017-06-18] MEDS: [UNRECOGNIZED DRUG - OTHER] IV SCH (21:06)
[2017-06-18] MEDS: Amikacin 950 MG in NS 110 ML IV SCH (22:02)
[2017-06-19] VITALS (7 sets, daily range): BP systolic 100–123; BP diastolic 69–84
[2017-06-19] MEDS: Morphine Sulfate 2mg/ml Inj IVP PRN ×5 (04:04→23:39)
[2017-06-19] MEDS: metroNIDAZOLE 500mg tab ORAL SCH ×3 (05:12→21:13)
--- NOTE | 2017-06-19 06:15 | Progress Note ---
DATE: 06/18/2017 INCOMPLETE DICTATION SUBJECTIVE: The patient was seen with the therapist in the room sitting at beside. He is complaining of mild abdominal pain. He appeared somewhat short of breath, sitting. OBJECTIVE: GENERAL: A well-developed man. HEENT: Normocephalic and atraumatic. NECK: Supple. CHEST: Clear to auscultation except for scattered rhonchi. CV: RR Abd: soft, Mild RUQ TTP Ext: trace edema Assessment - RUQ TTP - Abnormal LFT Recommendations - po as tolerated - follow labs - follow exam Won Goodwin M.D. DR: Javier JOB#: [id number] CC: GUICHO
[2017-06-19 06:41] LABS: HEMATOCRIT 21.4 % (42.0-52.0); MEAN CORPUSCULAR VOLUME 94 FL (80-99); PLATELET COUNT 117 K/UL (150-450); RED BLOOD COUNT 2.27 M/UL (4.70-6.10); RED CELL DISTRIBUTION WIDTH 18.2 % (11.6-14.8); WHITE BLOOD COUNT 5.3 K/UL (4.8-10.8)
[2017-06-19 07:09] LABS: ALANINE AMINOTRANSFERASE 103 U/L (12-78); ALBUMIN/GLOBULIN RATIO 0.4 (1.0-2.7); ALKALINE PHOSPHATASE 145 U/L (46-116); ANION GAP 3 mmol/L (5-15); ASPARTATE AMINO TRANSFERASE 20 U/L (15-37); BILIRUBIN,TOTAL 0.9 MG/DL (0.2-1.0); BLOOD UREA NITROGEN 37 mg/dL (7-18); CALCIUM 8.2 MG/DL (8.5-10.1); CARBON DIOXIDE 37 MMOL/L (21-32); CHLORIDE 96 MMOL/L (98-107); CREATININE 9.4 MG/DL (0.55-1.30); POTASSIUM 3.7 MMOL/L (3.5-5.1); SODIUM 136 MMOL/L (136-145)
[2017-06-19 07:31] LABS: HEMOGLOBIN 6.6 G/DL (14.2-18.0)
[2017-06-19] MEDS: Docusate 100mg cap ORAL SCH ×3 (08:26→18:56)
[2017-06-19] MEDS: Carvedilol 25mg Tab ORAL SCH ×2 (08:28→21:00)
[2017-06-19] MEDS: Lisinopril 20mg tab ORAL SCH ×2 (08:29→19:00)
[2017-06-19] MEDS: ALPRAZolam 0.5mg tab ORAL SCH ×2 (08:32→21:13)
--- NOTE | 2017-06-19 09:47 | General Progress Note ---
Assessment/Plan Assessment/Plan #. Anemia secondary to chronic disease. --> S/P blood transfusion as hemoglobin dropped below goal. Currently hgb is 7.4 --> S/P abd CAT scan revealing evidence of hepatic cirrhosis. --> Hepatosplenomegaly. Ascites. There is also evidence of generalized anasarca , with pleural fluid and generalized subcutaneous edema --> Continue to closely monitor and trend cbc daily. --> Anemia workup completed and reviewed. Iron 42, TIBC 180, Ferritin 593, B12 876. --> Ferritin is >500, hgb goal is >7 --> Anemia w/u has been reviewed --> ++Occult blood. Consider GI Services and Recs. --> Noted some abd pain today, followup. #. Anemia of kidney disease --> HD as needed per nephrology team --> Monitor closely. #. Generalized body ache related to fluid overload. #. End-stage renal disease, on hemodialysis as needed --> Monitor. S/P HD. #. Tachycardia, to be seen by Cardiology Service, isolated T-wave and ST- segment depression in V6. --> HR has been ~80-90bpm --> S/P Chest CT -- Evidence of worsening CHF/interstitial edema. --> Monitor for improvement. #. Elevated BNP, potentially related to underlying CKD. Subjective Date patient seen: Jun 18, 2017 Constitutional: Denies: no symptoms, chills, diaphoresis, fever, malaise, weakness, other HEENT: Denies: no symptoms, eye pain, blurred vision, tearing, double vision, ear pain, ear discharge, nose pain, nose congestion, throat pain, throat swelling, mouth pain, mouth swelling, other Cardiovascular: Denies: no symptoms, chest pain, edema, irregular heart rate, lightheadedness, palpitations, syncope, other Respiratory: Denies: no symptoms, cough, orthopnea, shortness of breath, SOB with excertion, SOB at rest, sputum, stridor, wheezing, other Gastrointestinal/Abdominal: Denies: no symptoms, abdomen distended, abdominal pain, black stools, tarry stools, blood in stool, constipated, diarrhea, difficulty swallowing, nausea, poor appetite, poor fluid intake, rectal bleeding , vomiting, other Genitourinary: Denies: no symptoms, burning, discharge, frequency, flank pain, hematuria, incontinence, pain, urgency, other Neurologic/Psychiatric: Denies: no symptoms, anxiety, depressed, emotional problems, headache, numbness, paresthesia, pre-existing deficit, seizure, tingling, tremors, weakness, other Hematologic/Lymphatic: Reports: anemia Allergies: Coded Allergies: No Known Allergies (Unverified , 10/24/15) Subjective S/P HD. Some abd pain and sob noted. Objective Last 24 Hour Vital Signs Date Time Temp Pulse Resp B/P (MAP) Pulse Ox O2 Delivery O2 Flow Rate FiO2 06/19/17 08:29 121/69 06/19/17 08:28 79 121/69 06/19/17 08:25 79 121/69 06/19/17 07:58 97.6 76 20 120/71 94 97.6 06/19/17 07:45 Nasal Cannula 4.0 36 06/19/17 07:45 95 Nasal Cannula 4.0 36 06/19/17 04:35 97.7 06/19/17 04:04 97.7 06/19/17 04:00 97.9 100 20 120/70 Nasal Cannula 100.0 97.9 06/19/17 00:38 94 Nasal Cannula 4.0 06/19/17 00:00 97.7 79 20 123/84 Nasal Cannula 94.0 97.7 06/18/17 21:19 97.8 06/18/17 21:07 77 118/66 06/18/17 20:11 97.8 06/18/17 19:31 97 Nasal Cannula 4.0 36 06/18/17 19:31 77 20 Nasal Cannula 4.0 36 06/18/17 19:31 Nasal Cannula 4.0 36 06/18/17 19:24 118/66 06/18/17 19:17 118/66 06/18/17 18:00 118/66 06/18/17 17:40 97.8 76 28 123/66 Nasal Cannula 7.0 97.8 06/18/17 17:40 Nasal Cannula 7.0 06/18/17 16:40 Venturi Mask 12.0 06/18/17 16:00 97.5 70 20 137/76 97 97.5 06/18/17 14:00 Nasal Cannula 7.0 06/18/17 14:00 97.5 70 28 120/74 Nasal Cannula 7.0 97.5 06/18/17 12:00 97.5 73 26 111/74 92 97.5 06/18/17 12:00 Nasal Cannula 4.0 06/18/17 11:08 68 20 100 Facial 40 Intake and Output 06/18/17 06/19/17 19:00 07:00 Intake Total 600 ml 913.8 ml Output Total 3000 ml Balance -2400 ml 913.8 ml IV Total 600 ml 913.8 ml Hemodialysis UF 3000 ml Laboratory Tests 06/19/17 05:20: White Blood Count 5.3, Red Blood Count 2.27L, Hemoglobin 6.6*L, Hematocrit 21.4L , Mean Corpuscular Volume 94, Mean Corpuscular Hemoglobin 29.2, Mean Corpuscular Hemoglobin Concent 31.0L, Red Cell Distribution Width 18.2H, Platelet Count 117L, Mean Platelet Volume 7.8, Neutrophils (%) (Auto) , Lymphocytes (%) (Auto) , Monocytes (%) (Auto) , Eosinophils (%) (Auto) , Basophils (%) (Auto) , Differential Total Cells Counted 100, Neutrophils % ( Manual) 56, Lymphocytes % (Manual) 31, Monocytes % (Manual) 10, Eosinophils % ( Manual) 3, Basophils % (Manual) 0, Band Neutrophils 0, Platelet Estimate DecreasedL, Platelet Morphology Normal, Hypochromasia 1+, Anisocytosis 1+, Sodium Level 136, Potassium Level 3.7, Chloride Level 96L, Carbon Dioxide Level 37H, Anion Gap 3L, Blood Urea Nitrogen 37H, Creatinine 9.4H, Estimat Glomerular Filtration Rate 7.0, Glucose Level 107H, Calcium Level 8.2L, Total Bilirubin 0.9 , Aspartate Amino Transf (AST/SGOT) 20, Alanine Aminotransferase (ALT/SGPT) 103H , Alkaline Phosphatase 145H, Total Protein 6.5, Albumin 2.0L, Globulin 4.5, Albumin/Globulin Ratio 0.4L Height (Feet): 5 Height (Inches): 7.00 Weight (Pounds): 210 General Appearance: confused Respiratory/Chest: decreased breath sounds Abdomen: soft Irving Parker Jun 19, 2017 09:47
--- NOTE | 2017-06-19 10:30 | General Progress Note ---
Assessment/Plan Assessment/Plan Assessment - Anemia - OB (+) Stool - R/O TB - ESRD/HD - DM - HTN - COPD - gallstones - RUQ TTP and elevated LFT - abnormal GB ultrasound - Hepatitis C (+) Recommendations - PO as tolerated - monitor LFT - consider HIDA - transfuse PRN - Acid blockade - Defer EGD/Colon a this time Subjective Allergies: Coded Allergies: No Known Allergies (Unverified , 10/24/15) Subjective above noted no events overnight says his abd pain improved tolerating po Objective Last 24 Hour Vital Signs Date Time Temp Pulse Resp B/P (MAP) Pulse Ox O2 Delivery O2 Flow Rate FiO2 06/19/17 08:29 121/69 06/19/17 08:28 79 121/69 06/19/17 08:25 79 121/69 06/19/17 07:58 97.6 76 20 120/71 94 97.6 06/19/17 07:45 Nasal Cannula 4.0 36 06/19/17 07:45 95 Nasal Cannula 4.0 36 06/19/17 04:35 97.7 06/19/17 04:04 97.7 06/19/17 04:00 97.9 100 20 120/70 Nasal Cannula 100.0 97.9 06/19/17 00:38 94 Nasal Cannula 4.0 06/19/17 00:00 97.7 79 20 123/84 Nasal Cannula 94.0 97.7 06/18/17 21:19 97.8 06/18/17 21:07 77 118/66 06/18/17 20:11 97.8 06/18/17 19:31 97 Nasal Cannula 4.0 36 06/18/17 19:31 77 20 Nasal Cannula 4.0 36 06/18/17 19:31 Nasal Cannula 4.0 36 06/18/17 19:24 118/66 06/18/17 19:17 118/66 06/18/17 18:00 118/66 06/18/17 17:40 97.8 76 28 123/66 Nasal Cannula 7.0 97.8 06/18/17 17:40 Nasal Cannula 7.0 06/18/17 16:40 Venturi Mask 12.0 06/18/17 16:00 97.5 70 20 137/76 97 97.5 06/18/17 14:00 Nasal Cannula 7.0 06/18/17 14:00 97.5 70 28 120/74 Nasal Cannula 7.0 97.5 06/18/17 12:00 97.5 73 26 111/74 92 97.5 06/18/17 12:00 Nasal Cannula 4.0 06/18/17 11:08 68 20 100 Facial 40 Intake and Output 06/18/17 06/19/17 19:00 07:00 Intake Total 600 ml 913.8 ml Output Total 3000 ml Balance -2400 ml 913.8 ml IV Total 600 ml 913.8 ml Hemodialysis UF 3000 ml Laboratory Tests 06/19/17 05:20: White Blood Count 5.3, Red Blood Count 2.27L, Hemoglobin 6.6*L, Hematocrit 21.4L , Mean Corpuscular Volume 94, Mean Corpuscular Hemoglobin 29.2, Mean Corpuscular Hemoglobin Concent 31.0L, Red Cell Distribution Width 18.2H, Platelet Count 117L, Mean Platelet Volume 7.8, Neutrophils (%) (Auto) , Lymphocytes (%) (Auto) , Monocytes (%) (Auto) , Eosinophils (%) (Auto) , Basophils (%) (Auto) , Differential Total Cells Counted 100, Neutrophils % ( Manual) 56, Lymphocytes % (Manual) 31, Monocytes % (Manual) 10, Eosinophils % ( Manual) 3, Basophils % (Manual) 0, Band Neutrophils 0, Platelet Estimate DecreasedL, Platelet Morphology Normal, Hypochromasia 1+, Anisocytosis 1+, Sodium Level 136, Potassium Level 3.7, Chloride Level 96L, Carbon Dioxide Level 37H, Anion Gap 3L, Blood Urea Nitrogen 37H, Creatinine 9.4H, Estimat Glomerular Filtration Rate 7.0, Glucose Level 107H, Calcium Level 8.2L, Total Bilirubin 0.9 , Aspartate Amino Transf (AST/SGOT) 20, Alanine Aminotransferase (ALT/SGPT) 103H , Alkaline Phosphatase 145H, Total Protein 6.5, Albumin 2.0L, Globulin 4.5, Albumin/Globulin Ratio 0.4L Height (Feet): 5 Height (Inches): 7.00 Weight (Pounds): 210 Objective WDWN AA Man NCAT supple CTA RRR Soft mildly distended, (+) improved RUQ TTP No edema PERCY JOYNER Jun 19, 2017 10:30
--- NOTE | 2017-06-19 11:02 | General Surgery Progress Note ---
General Surgery-Progress Note Subjective Symptoms: improved Additional Comments pain improving. Objective Last 24 Hour Vital Signs Date Time Temp Pulse Resp B/P (MAP) Pulse Ox O2 Delivery O2 Flow Rate FiO2 06/19/17 08:29 121/69 06/19/17 08:28 79 121/69 06/19/17 08:25 79 121/69 06/19/17 08:00 Nasal Cannula 4.0 06/19/17 07:58 97.6 76 20 120/71 94 97.6 06/19/17 07:45 Nasal Cannula 4.0 36 06/19/17 07:45 95 Nasal Cannula 4.0 36 06/19/17 04:35 97.7 06/19/17 04:04 97.7 06/19/17 04:00 97.9 100 20 120/70 Nasal Cannula 100.0 97.9 06/19/17 00:38 94 Nasal Cannula 4.0 06/19/17 00:00 97.7 79 20 123/84 Nasal Cannula 94.0 97.7 06/18/17 21:19 97.8 06/18/17 21:07 77 118/66 06/18/17 20:11 97.8 06/18/17 19:31 97 Nasal Cannula 4.0 36 06/18/17 19:31 77 20 Nasal Cannula 4.0 36 06/18/17 19:31 Nasal Cannula 4.0 36 06/18/17 19:24 118/66 06/18/17 19:17 118/66 06/18/17 18:00 118/66 06/18/17 17:40 97.8 76 28 123/66 Nasal Cannula 7.0 97.8 06/18/17 17:40 Nasal Cannula 7.0 06/18/17 16:40 Venturi Mask 12.0 06/18/17 16:00 97.5 70 20 137/76 97 97.5 06/18/17 14:00 Nasal Cannula 7.0 06/18/17 14:00 97.5 70 28 120/74 Nasal Cannula 7.0 97.5 06/18/17 12:00 97.5 73 26 111/74 92 97.5 06/18/17 12:00 Nasal Cannula 4.0 06/18/17 11:08 68 20 100 Facial 40 I&O Intake and Output 06/18/17 06/19/17 19:00 07:00 Intake Total 600 ml 913.8 ml Output Total 3000 ml Balance -2400 ml 913.8 ml IV Total 600 ml 913.8 ml Hemodialysis UF 3000 ml Drains: none Cardiovascular: RSR Respiratory: clear Abdomen: soft, present bowel sounds, other - improved right sided tendnerness Extremities: no cyanosis Laboratory Tests Test 06/19/17 05:20 White Blood Count 5.3 K/UL (4.8-10.8) Red Blood Count 2.27 M/UL (4.70-6.10) L Hemoglobin 6.6 G/DL (14.2-18.0) *L Hematocrit 21.4 % (42.0-52.0) L Mean Corpuscular Volume 94 FL (80-99) Mean Corpuscular Hemoglobin 29.2 PG (27.0-31.0) Mean Corpuscular Hemoglobin Concent 31.0 G/DL (32.0-36.0) L Red Cell Distribution Width 18.2 % (11.6-14.8) H Platelet Count 117 K/UL (150-450) L Mean Platelet Volume 7.8 FL (6.5-10.1) Neutrophils (%) (Auto) % (45.0-75.0) Lymphocytes (%) (Auto) % (20.0-45.0) Monocytes (%) (Auto) % (1.0-10.0) Eosinophils (%) (Auto) % (0.0-3.0) Basophils (%) (Auto) % (0.0-2.0) Differential Total Cells Counted 100 Neutrophils % (Manual) 56 % (45-75) Lymphocytes % (Manual) 31 % (20-45) Monocytes % (Manual) 10 % (1-10) Eosinophils % (Manual) 3 % (0-3) Basophils % (Manual) 0 % (0-2) Band Neutrophils 0 % (0-8) Platelet Estimate Decreased L Platelet Morphology Normal Hypochromasia 1+ Anisocytosis 1+ Sodium Level 136 MMOL/L (136-145) Potassium Level 3.7 MMOL/L (3.5-5.1) Chloride Level 96 MMOL/L (98-107) L Carbon Dioxide Level 37 MMOL/L (21-32) H Anion Gap 3 mmol/L (5-15) L Blood Urea Nitrogen 37 mg/dL (7-18) H Creatinine 9.4 MG/DL (0.55-1.30) H Estimat Glomerular Filtration Rate 7.0 mL/min (>60) Glucose Level 107 MG/DL (74-106) H Calcium Level 8.2 MG/DL (8.5-10.1) L Total Bilirubin 0.9 MG/DL (0.2-1.0) Aspartate Amino Transf (AST/SGOT) 20 U/L (15-37) Alanine Aminotransferase (ALT/SGPT) 103 U/L (12-78) H Alkaline Phosphatase 145 U/L (46-116) H Total Protein 6.5 G/DL (6.4-8.2) Albumin 2.0 G/DL (3.4-5.0) L Globulin 4.5 g/dL Albumin/Globulin Ratio 0.4 (1.0-2.7) L Plan Problems: (1) Intractable abdominal pain Assessment & Plan: 57M with abdominal pain. elevated lft's and ultrasound reviewed. has liver cirrhosis, ascites, and gallbladder findings on ultrasound likely secondary to intrinsic liver disease. on exam his abdominal pain is fairly superficial and around this right abd upper and lower and right flank. he has edema and thickening of the right subcutaneous tissues as compared to the left. possible abscess vs cellulitis? Ultrasound findings: Impression: Ascites Evidence of hepatic cirrhosis Cholelithiasis. There is gallbladder wall thickening, likely related to hemodynamic abnormalities related to the hepatic abnormality, particularly as this is evident on the prior exam of 2 years earlier. However, acute cholecystitis cannot be completely ruled out, and hepatobiliary scanning is recommended if there is high clinical suspicion CT findings: Impression: Evidence of hepatic cirrhosis. Hepatosplenomegaly Ascites. There is also evidence of generalized anasarca, with pleural fluid and generalized subcutaneous edema Cholelithiasis, also previously reported Possible diverticulosis. No evidence of diverticulitis Nonvisualized appendix. No evidence of appendicitis Left renal cysts. Subcentimeter right lobe hepatic and bilateral renal lesions, too small to characterize, most likely benign simple cysts. No further follow-up necessary Bilateral pleural effusions and parenchymal consolidation. LFT's improving. but still no clear explanation as to acute elevation in LFT' s. Right sided abdominal pain improved CT A/P reviewed. Hep C + -given exam, radiological findings, history, unlikely to be acute cholecystitis. exam with discomfort in right upper/lower/flank region and improving ultrasound findings similar to that of two years ago. pain could be from hepatomegaly? or even from significant subcutaneous edema/anasarca in that area. -no acute surgical intervention recommended at this time. -cont abx -will follow with recs. Ever Parham Jun 19, 2017 11:02
[2017-06-19] MEDS: Nitroglycerin Patch 0.4mg TDERMAL SCH ×2 (11:30→19:09)
--- NOTE | 2017-06-19 12:35 | Nephrology Progress Note ---
Assessment/Plan Problem List: (1) ESRD (end stage renal disease) on dialysis (2) Shortness of breath (3) Anemia Assessment worsenning Anemia ESRD , missed HD , admitted with high K and pulmonary edema Acute respiratory distress due to volume overload elevated troponin r/o ACS h/o COPD ? exacerbation HTN urgency Cardiomyopathy L AICD anemia of chronic kidney disease Hx of CVA Plan Plan: Low H&H - consider transfusion HD next 06/20 Transfused Phos binders BP meds adjustment Optimize cardiac status per orders Subjective ROS Limited/Unobtainable: No Constitutional: Reports: malaise Objective Objective Last 24 Hour Vital Signs Date Time Temp Pulse Resp B/P (MAP) Pulse Ox O2 Delivery O2 Flow Rate FiO2 06/19/17 12:00 98.1 72 20 123/72 100 98.1 06/19/17 08:29 121/69 06/19/17 08:28 79 121/69 06/19/17 08:25 79 121/69 06/19/17 08:00 Nasal Cannula 4.0 06/19/17 07:58 97.6 76 20 120/71 94 97.6 06/19/17 07:45 Nasal Cannula 4.0 36 06/19/17 07:45 95 Nasal Cannula 4.0 36 06/19/17 04:35 97.7 06/19/17 04:04 97.7 06/19/17 04:00 97.9 100 20 120/70 Nasal Cannula 100.0 97.9 06/19/17 00:38 94 Nasal Cannula 4.0 06/19/17 00:00 97.7 79 20 123/84 Nasal Cannula 94.0 97.7 06/18/17 21:19 97.8 06/18/17 21:07 77 118/66 06/18/17 20:11 97.8 06/18/17 19:31 97 Nasal Cannula 4.0 36 06/18/17 19:31 77 20 Nasal Cannula 4.0 36 06/18/17 19:31 Nasal Cannula 4.0 36 06/18/17 19:24 118/66 06/18/17 19:17 118/66 06/18/17 18:00 118/66 06/18/17 17:40 97.8 76 28 123/66 Nasal Cannula 7.0 97.8 06/18/17 17:40 Nasal Cannula 7.0 06/18/17 16:40 Venturi Mask 12.0 06/18/17 16:00 97.5 70 20 137/76 97 97.5 06/18/17 14:00 Nasal Cannula 7.0 06/18/17 14:00 97.5 70 28 120/74 Nasal Cannula 7.0 97.5 Intake and Output 06/18/17 06/19/17 19:00 07:00 Intake Total 600 ml 913.8 ml Output Total 3000 ml Balance -2400 ml 913.8 ml IV Total 600 ml 913.8 ml Hemodialysis UF 3000 ml Laboratory Tests 06/19/17 05:20: White Blood Count 5.3, Red Blood Count 2.27L, Hemoglobin 6.6*L, Hematocrit 21.4L , Mean Corpuscular Volume 94, Mean Corpuscular Hemoglobin 29.2, Mean Corpuscular Hemoglobin Concent 31.0L, Red Cell Distribution Width 18.2H, Platelet Count 117L, Mean Platelet Volume 7.8, Neutrophils (%) (Auto) , Lymphocytes (%) (Auto) , Monocytes (%) (Auto) , Eosinophils (%) (Auto) , Basophils (%) (Auto) , Differential Total Cells Counted 100, Neutrophils % ( Manual) 56, Lymphocytes % (Manual) 31, Monocytes % (Manual) 10, Eosinophils % ( Manual) 3, Basophils % (Manual) 0, Band Neutrophils 0, Platelet Estimate DecreasedL, Platelet Morphology Normal, Hypochromasia 1+, Anisocytosis 1+, Sodium Level 136, Potassium Level 3.7, Chloride Level 96L, Carbon Dioxide Level 37H, Anion Gap 3L, Blood Urea Nitrogen 37H, Creatinine 9.4H, Estimat Glomerular Filtration Rate 7.0, Glucose Level 107H, Calcium Level 8.2L, Total Bilirubin 0.9 , Aspartate Amino Transf (AST/SGOT) 20, Alanine Aminotransferase (ALT/SGPT) 103H , Alkaline Phosphatase 145H, Total Protein 6.5, Albumin 2.0L, Globulin 4.5, Albumin/Globulin Ratio 0.4L Height (Feet): 5 Height (Inches): 7.00 Weight (Pounds): 210 General Appearance: no apparent distress Objective no change LIAM MONTELONGO 15, 2018 12:35
--- NOTE | 2017-06-19 17:22 | Internal Med Progress Note ---
Subjective Date of Service: Jun 19, 2017 Physician Name Zoey Pires Attending Physician Chaitanya Weinstein MD Current Medications Medications (Trade) Dose Ordered Sig/Jose Route PRN Reason Start Time Stop Time Status Last Admin Dose Admin Acetaminophen (Tylenol) 650 mg Q4H PRN RECTAL Mild Pain (Pain Scale 1-3) 06/16/17 19:00 07/09/17 18:59 Alprazolam (Xanax) 2 mg DAILYPRN PRN ORAL Agitation 06/16/17 18:45 06/23/17 18:44 06/18/17 05:44 Alprazolam (Xanax) 2 mg Q12HR ORAL 06/16/17 21:00 06/20/17 20:59 06/19/17 08:32 Amikacin Sulfate 950 mg/Sodium Chloride 113.8 ml @ 227.6 mls/ hr FRI-FRI-FRI IV 06/18/17 21:00 06/25/17 23:59 06/18/17 22:02 Amphotericin B 50 mg/Dextrose 500 ml @ 100 mls/hr Q24H IV 06/16/17 20:00 06/21/17 19:59 06/18/17 21:06 Carisoprodol (Soma) 350 mg BID ORAL 06/17/17 20:00 07/15/17 19:59 06/19/17 08:30 Carisoprodol (Soma) 350 mg Q6H PRN ORAL MUSCLE SPASMS 06/16/17 19:00 07/14/17 18:59 06/17/17 21:35 Carvedilol (Coreg) 25 mg EVERY 12 HOURS ORAL 06/16/17 21:00 07/04/17 11:29 06/19/17 08:28 Chlorhexidine Gluconate (Mireille-Hex 2%) 1 applic DAILY@2000 TOPIC 06/16/17 20:00 07/05/17 19:59 06/18/17 21:06 Clonidine HCl (Catapres Tab) 0.1 mg Q4H PRN ORAL bp over 160 syst 06/16/17 19:00 07/03/17 18:59 Dextrose 1,000 ml @ 50 mls/hr Q20H IV 06/16/17 19:00 07/14/17 18:59 06/18/17 13:16 Dextrose (Dextrose 50%) STAT PRN IV Hypoglycemia 06/16/17 19:00 07/14/17 18:59 Docusate Sodium (Colace) 100 mg THREE TIMES A DAY ORAL 06/17/17 20:00 07/03/17 19:59 06/19/17 14:00 Ethambutol HCl (Myambutol) 1,000 mg 3XW ORAL 06/18/17 09:00 07/18/17 23:59 06/18/17 19:10 Levofloxacin (Levaquin) 750 mg EVERY OTHER DAY@1999 ORAL 06/17/17 20:00 06/24/17 19:59 06/17/17 19:58 Lisinopril (Prinivil) 20 mg BID ORAL 06/17/17 09:00 07/04/17 08:59 06/19/17 08:29 Meperidine HCl (Demerol) 25 mg ONCE PRN IM RIGOR AFTER AMPHO DOSE 06/16/17 19:00 06/23/17 18:59 Metronidazole (Flagyl) 500 mg Q8HR ORAL 06/17/17 22:00 06/24/17 21:59 06/19/17 14:01 Morphine Sulfate (Morphine Sulfate) 2 mg Q4H PRN IVP Moderate Pain (Pain Scale 4-6) 06/17/17 14:45 06/24/17 14:44 06/19/17 13:39 Nitroglycerin (Ntg) 0.4 mg Q5M PRN SL Prn Chest Pain 06/16/17 18:15 07/04/17 09:14 Nitroglycerin (Ntg) 1 patch Q24H TDERMAL 06/17/17 11:30 07/04/17 11:29 06/18/17 19:17 Ondansetron HCl (Zofran) 4 mg Q6H PRN IVP Nausea & Vomiting 06/16/17 18:30 07/14/17 18:29 Pantoprazole (Protonix) 40 mg ACBREAKFAST ORAL 06/17/17 06:30 07/15/17 06:29 06/19/17 05:12 Polyethylene Glycol (Miralax) 17 gm DAILYPRN PRN ORAL Constipation 06/16/17 18:30 07/14/17 18:29 Promethazine HCl/ Codeine (Phenergan with Codeine) 5 ml Q4H PRN ORAL For Cough 06/16/17 18:30 07/05/17 18:29 Sevelamer Carbonate (Renvela) 2,400 mg THREE TIMES A DAY ORAL 06/16/17 18:45 07/16/17 18:44 06/19/17 14:00 Allergies: Coded Allergies: No Known Allergies (Unverified , 10/24/15) Subjective 57 YO M admitted with chest pain and shortness of breath. Now pneumonia and candelaria heart failure. Tolerating nasal canula. Cover for Int Misbah-Dr Weinstein. Objective Last Vital Signs Date Time Temp Pulse Resp B/P (MAP) Pulse Ox O2 Delivery O2 Flow Rate FiO2 06/19/17 12:00 98.1 72 20 123/72 100 98.1 06/19/17 12:00 Nasal Cannula 4.0 06/19/17 07:45 36 Laboratory Tests Test 06/19/17 05:20 White Blood Count 5.3 K/UL (4.8-10.8) Red Blood Count 2.27 M/UL (4.70-6.10) L Hemoglobin 6.6 G/DL (14.2-18.0) *L Hematocrit 21.4 % (42.0-52.0) L Mean Corpuscular Volume 94 FL (80-99) Mean Corpuscular Hemoglobin 29.2 PG (27.0-31.0) Mean Corpuscular Hemoglobin Concent 31.0 G/DL (32.0-36.0) L Red Cell Distribution Width 18.2 % (11.6-14.8) H Platelet Count 117 K/UL (150-450) L Mean Platelet Volume 7.8 FL (6.5-10.1) Neutrophils (%) (Auto) % (45.0-75.0) Lymphocytes (%) (Auto) % (20.0-45.0) Monocytes (%) (Auto) % (1.0-10.0) Eosinophils (%) (Auto) % (0.0-3.0) Basophils (%) (Auto) % (0.0-2.0) Differential Total Cells Counted 100 Neutrophils % (Manual) 56 % (45-75) Lymphocytes % (Manual) 31 % (20-45) Monocytes % (Manual) 10 % (1-10) Eosinophils % (Manual) 3 % (0-3) Basophils % (Manual) 0 % (0-2) Band Neutrophils 0 % (0-8) Platelet Estimate Decreased L Platelet Morphology Normal Hypochromasia 1+ Anisocytosis 1+ Sodium Level 136 MMOL/L (136-145) Potassium Level 3.7 MMOL/L (3.5-5.1) Chloride Level 96 MMOL/L (98-107) L Carbon Dioxide Level 37 MMOL/L (21-32) H Anion Gap 3 mmol/L (5-15) L Blood Urea Nitrogen 37 mg/dL (7-18) H Creatinine 9.4 MG/DL (0.55-1.30) H Estimat Glomerular Filtration Rate 7.0 mL/min (>60) Glucose Level 107 MG/DL (74-106) H Calcium Level 8.2 MG/DL (8.5-10.1) L Total Bilirubin 0.9 MG/DL (0.2-1.0) Aspartate Amino Transf (AST/SGOT) 20 U/L (15-37) Alanine Aminotransferase (ALT/SGPT) 103 U/L (12-78) H Alkaline Phosphatase 145 U/L (46-116) H Total Protein 6.5 G/DL (6.4-8.2) Albumin 2.0 G/DL (3.4-5.0) L Globulin 4.5 g/dL Albumin/Globulin Ratio 0.4 (1.0-2.7) L Intake and Output 06/18/17 06/19/17 19:00 07:00 Intake Total 600 ml 913.8 ml Output Total 3000 ml Balance -2400 ml 913.8 ml IV Total 600 ml 913.8 ml Hemodialysis UF 3000 ml Objective General Appearance: WD/WN, alert, moderate distress EENT: PERRL/EOMI, normal ENT inspection Neck: non-tender, normal alignment, supple, normal inspection Cardiovascular: normal peripheral pulses, normal rate, regular rhythm, no gallop/murmur, no JVD Respiratory/Chest: Nasal canula; respiratory distress, crackles/rales, rhonchi - bilaterally, expiratory wheezing Abdomen: normal bowel sounds, non tender, soft, no organomegaly, no mass Extremities: normal range of motion Neurologic: 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 Currently on venturi mask. See pulmonay note. (2) Pleuritic chest pain (3) Hemoptysis Assessment & Plan: Due to pneumonia (4) Pneumonia Assessment & Plan: RUL and cavitary. Concerning for TB. Await AFB cultures- see ID consult. Continue vanco and ethambutol per ID (5) Shortness of breath (6) ESRD (end stage renal disease) on dialysis Assessment & Plan: See nephrology note. Hemodialysis 06/14/17 per nephrology (7) Hyperkalemia Assessment & Plan: Due to renal failure. Hemodialysis 06/12/17 per nephrology (8) COPD (chronic obstructive pulmonary disease) (9) HTN (hypertension) Assessment & Plan: Continue coreg and lisinopril. (10) CHF (congestive heart failure) (11) Elevated troponin Assessment & Plan: ?due to renal failure? See cardiology note. (12) Intractable abdominal pain Assessment & Plan: See surgery note. Await CT abdomen Status: not improved ZOEY PIRES Jun 19, 2017 17:22
--- NOTE | 2017-06-19 17:23 | Infectious Diseases Prog Note ---
Assessment/Plan Assessment/Plan Cavitary PNA. SCx: Neg ( m/l necrotizing Pneum, less likely fungal and doubt TB ) Rsp status improved up to yesterday but on 06/[address] his condition worsen T-SPOT :Neg AFB x 3 : Neg MTB PCR x2 : neg cryptococcus Ag : neg CT chest 06/15: Slightly smaller (6 cm diameter ) but mostly unchanged cavitary lesion in the right lung, previously thought to represent a cavitating inflammatory process. Lung abscess is certainly a possibility. Fairly extensive bilateral pulmonary parenchymal consolidation, slightly increased from previous exam of 06/05/2017. Likely a combination of pulmonary edema and pneumonia. Small right and trace left pleural effusion, new/increased from the previous study. CT 06/05: 7.8 x 5.3 x 6.6 cm dense opacity in the posterior inferior right upper lobe with a central cavitation. Chest x-ray : right mid lung infiltrate, possible cavitation Rule out tuberculosis, fungal infection, or necrotizing pneumonia. CRP 14 Influenza negative Low-grade fever, SP Status post leukocytosis. Transaminitis , probably 2/2 Hep C cirrhosis- no active Hep C as VL not dected -CT abd/p: Evidence of hepatic cirrhosis. Hepatosplenomegaly. evidence of generalized anasarca, with pleural fluid and generalized subcutaneous edema. Cholelithiasis, also previously reported. Possible diverticulosis. No evidence of diverticulitis US Abd : Cholelithiasis. There is gallbladder wall thickening, likely related to hemodynamic abnormalities Splenomegaly. Evidence of hepatic cirrhosis HIV : NEG Hep Panel B neg , C Ab : +ve , VL not detected leukopenia and TCP 2/2 splenomegaly Seizure disorder History of CVA History of pacemaker placement Hyperlipidemia Hypertension COPD/asthma End-stage renal disease, on hemodialysis Diabetes Anxiety Anemia Echo, ejection fraction 45% to 50%. PLAN: Cont empiric AmphoB #6( possible Aspergillosis) pending cultures and fungal serologies -Continue Flagyl (in addition with Levaquin will provide anaerobic coverage for possible aspiration/cavitary PNA as no isolation of resistant organisms); abx d # 17/21-28 Continue empiric Ethambutol , amikacin d# 6 and Levaquin d# 7 ( TB Control recs to start TB Rx, doubt that this is needed at his time pt has pt improved initially, wups so far neg for TB, has increased of LFT , ) 06/17 SP IV Vancomycin #14, Meropenem #5 3/ SP Zosyn d# 10 3/4 SP Zithromax D# 6 f/u sputum culture (, fungal, and AFB x3). f/u Coccidioidal ,Galactomannan and Fungitell, Histoplasma ag urine and ab, blastomycies ab Airborne isolation for now may need BAL , will defer this to Pul team may need JIMY ro SBE w emboli to lung ( hx of AICD ) Subjective Allergies: Coded Allergies: No Known Allergies (Unverified , 10/24/15) Subjective afebrile no leukocytosis LFTs improving fungal serologies pending Objective Vital Signs Last 24 Hour Vital Signs Date Time Temp Pulse Resp B/P (MAP) Pulse Ox O2 Delivery O2 Flow Rate FiO2 06/19/17 12:00 98.1 72 20 123/72 100 98.1 06/19/17 12:00 Nasal Cannula 4.0 06/19/17 11:30 103/66 06/19/17 08:29 121/69 06/19/17 08:28 79 121/69 06/19/17 08:25 79 121/69 06/19/17 08:00 Nasal Cannula 4.0 06/19/17 07:58 97.6 76 20 120/71 94 97.6 06/19/17 07:45 Nasal Cannula 4.0 36 06/19/17 07:45 95 Nasal Cannula 4.0 36 06/19/17 04:35 97.7 06/19/17 04:04 97.7 06/19/17 04:00 97.9 100 20 120/70 Nasal Cannula 100.0 97.9 06/19/17 00:38 94 Nasal Cannula 4.0 06/19/17 00:00 97.7 79 20 123/84 Nasal Cannula 94.0 97.7 06/18/17 21:19 97.8 06/18/17 21:07 77 118/66 06/18/17 20:11 97.8 06/18/17 19:31 97 Nasal Cannula 4.0 36 06/18/17 19:31 77 20 Nasal Cannula 4.0 36 06/18/17 19:31 Nasal Cannula 4.0 36 06/18/17 19:24 118/66 06/18/17 19:17 118/66 06/18/17 18:00 118/66 06/18/17 17:40 97.8 76 28 123/66 Nasal Cannula 7.0 97.8 06/18/17 17:40 Nasal Cannula 7.0 Height (Feet): 5 Height (Inches): 7.00 Weight (Pounds): 210 Objective General Appearance: WD/WN, alert, moderate distress EENT: PERRL/EOMI, normal ENT inspection Neck: non-tender, normal alignment, supple, normal inspection Cardiovascular: normal peripheral pulses, normal rate, regular rhythm, no gallop/murmur, no JVD Respiratory/Chest: Non rebreather; respiratory distress, crackles/rales, rhonchi - bilaterally, expiratory wheezing Abdomen: normal bowel sounds, non tender, soft, no organomegaly, no mass Extremities: normal range of motion Neurologic: platemaker 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, no motor/sensory deficits Skin: normal pigmentation, warm/dry Laboratory Tests Test 06/19/17 05:20 White Blood Count 5.3 K/UL (4.8-10.8) Red Blood Count 2.27 M/UL (4.70-6.10) L Hemoglobin 6.6 G/DL (14.2-18.0) *L Hematocrit 21.4 % (42.0-52.0) L Mean Corpuscular Volume 94 FL (80-99) Mean Corpuscular Hemoglobin 29.2 PG (27.0-31.0) Mean Corpuscular Hemoglobin Concent 31.0 G/DL (32.0-36.0) L Red Cell Distribution Width 18.2 % (11.6-14.8) H Platelet Count 117 K/UL (150-450) L Mean Platelet Volume 7.8 FL (6.5-10.1) Neutrophils (%) (Auto) % (45.0-75.0) Lymphocytes (%) (Auto) % (20.0-45.0) Monocytes (%) (Auto) % (1.0-10.0) Eosinophils (%) (Auto) % (0.0-3.0) Basophils (%) (Auto) % (0.0-2.0) Differential Total Cells Counted 100 Neutrophils % (Manual) 56 % (45-75) Lymphocytes % (Manual) 31 % (20-45) Monocytes % (Manual) 10 % (1-10) Eosinophils % (Manual) 3 % (0-3) Basophils % (Manual) 0 % (0-2) Band Neutrophils 0 % (0-8) Platelet Estimate Decreased L Platelet Morphology Normal Hypochromasia 1+ Anisocytosis 1+ Sodium Level 136 MMOL/L (136-145) Potassium Level 3.7 MMOL/L (3.5-5.1) Chloride Level 96 MMOL/L (98-107) L Carbon Dioxide Level 37 MMOL/L (21-32) H Anion Gap 3 mmol/L (5-15) L Blood Urea Nitrogen 37 mg/dL (7-18) H Creatinine 9.4 MG/DL (0.55-1.30) H Estimat Glomerular Filtration Rate 7.0 mL/min (>60) Glucose Level 107 MG/DL (74-106) H Calcium Level 8.2 MG/DL (8.5-10.1) L Total Bilirubin 0.9 MG/DL (0.2-1.0) Aspartate Amino Transf (AST/SGOT) 20 U/L (15-37) Alanine Aminotransferase (ALT/SGPT) 103 U/L (12-78) H Alkaline Phosphatase 145 U/L (46-116) H Total Protein 6.5 G/DL (6.4-8.2) Albumin 2.0 G/DL (3.4-5.0) L Globulin 4.5 g/dL Albumin/Globulin Ratio 0.4 (1.0-2.7) L Current Medications Medications (Trade) Dose Ordered Sig/Jose Route PRN Reason Start Time Stop Time Status Last Admin Dose Admin Acetaminophen (Tylenol) 650 mg Q4H PRN RECTAL Mild Pain (Pain Scale 1-3) 06/16/17 19:00 07/09/17 18:59 Alprazolam (Xanax) 2 mg DAILYPRN PRN ORAL Agitation 06/16/17 18:45 06/23/17 18:44 06/18/17 05:44 Alprazolam (Xanax) 2 mg Q12HR ORAL 06/16/17 21:00 06/20/17 20:59 06/19/17 08:32 Amikacin Sulfate 950 mg/Sodium Chloride 113.8 ml @ 227.6 mls/ hr MON-WED-FRI IV 06/18/17 21:00 06/25/17 23:59 06/18/17 22:02 Amphotericin B 50 mg/Dextrose 500 ml @ 100 mls/hr Q24H IV 06/16/17 20:00 06/21/17 19:59 06/18/17 21:06 Carisoprodol (Soma) 350 mg BID ORAL 06/17/17 20:00 07/15/17 19:59 06/19/17 08:30 Carisoprodol (Soma) 350 mg Q6H PRN ORAL MUSCLE SPASMS 06/16/17 19:00 07/14/17 18:59 06/17/17 21:35 Carvedilol (Coreg) 25 mg EVERY 12 HOURS ORAL 06/16/17 21:00 07/04/17 11:29 06/19/17 08:28 Chlorhexidine Gluconate (Mireille-Hex 2%) 1 applic DAILY@1999 TOPIC 06/16/17 20:00 07/05/17 19:59 06/18/17 21:06 Clonidine HCl (Catapres Tab) 0.1 mg Q4H PRN ORAL bp over 160 syst 06/16/17 19:00 07/03/17 18:59 Dextrose 1,000 ml @ 50 mls/hr Q20H IV 06/16/17 19:00 07/14/17 18:59 06/18/17 13:16 Dextrose (Dextrose 50%) STAT PRN IV Hypoglycemia 06/16/17 19:00 07/14/17 18:59 Docusate Sodium (Colace) 100 mg THREE TIMES A DAY ORAL 06/17/17 20:00 07/03/17 19:59 06/19/17 14:00 Ethambutol HCl (Myambutol) 1,000 mg 3XW ORAL 06/18/17 09:00 07/18/17 23:59 06/18/17 19:10 Levofloxacin (Levaquin) 750 mg EVERY OTHER DAY@1999 ORAL 06/17/17 20:00 06/24/17 19:59 06/17/17 19:58 Lisinopril (Prinivil) 20 mg BID ORAL 06/17/17 09:00 07/04/17 08:59 06/19/17 08:29 Meperidine HCl (Demerol) 25 mg ONCE PRN IM RIGOR AFTER AMPHO DOSE 06/16/17 19:00 06/23/17 18:59 Metronidazole (Flagyl) 500 mg Q8HR ORAL 06/17/17 22:00 06/24/17 21:59 06/19/17 14:01 Morphine Sulfate (Morphine Sulfate) 2 mg Q4H PRN IVP Moderate Pain (Pain Scale 4-6) 06/17/17 14:45 06/24/17 14:44 06/19/17 13:39 Nitroglycerin (Ntg) 0.4 mg Q5M PRN SL Prn Chest Pain 06/16/17 18:15 07/04/17 09:14 Nitroglycerin (Ntg) 1 patch Q24H TDERMAL 06/17/17 11:30 07/04/17 11:29 06/18/17 19:17 Ondansetron HCl (Zofran) 4 mg Q6H PRN IVP Nausea & Vomiting 06/16/17 18:30 07/14/17 18:29 Pantoprazole (Protonix) 40 mg ACBREAKFAST ORAL 06/17/17 06:30 07/15/17 06:29 06/19/17 05:12 Polyethylene Glycol (Miralax) 17 gm DAILYPRN PRN ORAL Constipation 06/16/17 18:30 07/14/17 18:29 Promethazine HCl/ Codeine (Phenergan with Codeine) 5 ml Q4H PRN ORAL For Cough 06/16/17 18:30 07/05/17 18:29 Sevelamer Carbonate (Renvela) 2,400 mg THREE TIMES A DAY ORAL 06/16/17 18:45 07/16/17 18:44 06/19/17 14:00 Aleja Crocker M.D. Jun 19, 2017 17:22
[2017-06-19] MEDS: Dyna-Hex 2% Top Sol 2oz TOPIC SCH (21:12)
[2017-06-19] MEDS: D5W IV SCH (21:12)
[2017-06-19] MEDS: [UNRECOGNIZED DRUG - OTHER] IV SCH (21:12)
--- NOTE | 2017-06-19 21:28 | Cardiology Report ---
APPROVED REPORT EKG Measurement Heart [id number] Normal sinus rhythm Possible Left atrial enlargement Nonspecific T wave abnormality Abnormal ECG
--- NOTE | 2017-06-19 21:59 | Pulmonology Progress Note ---
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 check sputum Sputum shows only charli hold heparin for low PLT prbc prn on anti TB meds all notes reviewed f/u wbc and cultures Subjective ROS Limited/Unobtainable: No Constitutional: Reports: no symptoms HEENT: Repors: no symptoms Allergies: Coded Allergies: No Known Allergies (Unverified , 10/24/15) Objective Last 24 Hour Vital Signs Date Time Temp Pulse Resp B/P (MAP) Pulse Ox O2 Delivery O2 Flow Rate FiO2 06/19/17 21:00 72 100/74 06/19/17 20:35 72 16 Nasal Cannula 4.0 36 06/19/17 20:33 95 Nasal Cannula 4.0 36 06/19/17 20:33 Nasal Cannula 4.0 36 06/19/17 20:00 97.9 110 20 100/74 97 97.9 06/19/17 19:30 97.9 06/19/17 19:30 97.9 06/19/17 19:09 123/72 06/19/17 19:00 123/73 06/19/17 16:00 97.9 68 20 123/79 92 Nasal Cannula 97.9 06/19/17 12:00 98.1 72 20 123/72 100 98.1 06/19/17 12:00 Nasal Cannula 4.0 06/19/17 11:30 103/66 06/19/17 08:29 121/69 06/19/17 08:28 79 121/69 06/19/17 08:25 79 121/69 06/19/17 08:00 Nasal Cannula 4.0 06/19/17 07:58 97.6 76 20 120/71 94 97.6 06/19/17 07:45 Nasal Cannula 4.0 36 06/19/17 07:45 95 Nasal Cannula 4.0 36 06/19/17 04:04 97.7 06/19/17 04:00 97.9 100 20 120/70 Nasal Cannula 100.0 97.9 06/19/17 00:38 94 Nasal Cannula 4.0 06/19/17 00:00 97.7 79 20 123/84 Nasal Cannula 94.0 97.7 Intake and Output 06/18/17 06/19/17 18:59 06:59 Intake Total 550 ml 913.8 ml Output Total 3000 ml Balance -2450 ml 913.8 ml IV Total 550 ml 913.8 ml Hemodialysis UF 3000 ml Objective General Appearance: WD/WN HEENT: normocephalic, atraumatic, anicteric Respiratory/Chest: loud rhonchi Cardiovascular: normal peripheral pulses, normal rate, regular rhythm Abdomen: normal bowel sounds, soft, non tender, no organomegaly Genitourinary: normal external genitalia Extremities: no cyanosis Skin: no rash, no lesions 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, no motor/sensory deficits Lymphatic: no neck adenopathy, no groin adenopathy Laboratory Tests 06/19/17 05:20: White Blood Count 5.3, Red Blood Count 2.27L, Hemoglobin 6.6*L, Hematocrit 21.4L , Mean Corpuscular Volume 94, Mean Corpuscular Hemoglobin 29.2, Mean Corpuscular Hemoglobin Concent 31.0L, Red Cell Distribution Width 18.2H, Platelet Count 117L, Mean Platelet Volume 7.8, Neutrophils (%) (Auto) , Lymphocytes (%) (Auto) , Monocytes (%) (Auto) , Eosinophils (%) (Auto) , Basophils (%) (Auto) , Differential Total Cells Counted 100, Neutrophils % ( Manual) 56, Lymphocytes % (Manual) 31, Monocytes % (Manual) 10, Eosinophils % ( Manual) 3, Basophils % (Manual) 0, Band Neutrophils 0, Platelet Estimate DecreasedL, Platelet Morphology Normal, Hypochromasia 1+, Anisocytosis 1+, Sodium Level 136, Potassium Level 3.7, Chloride Level 96L, Carbon Dioxide Level 37H, Anion Gap 3L, Blood Urea Nitrogen 37H, Creatinine 9.4H, Estimat Glomerular Filtration Rate 7.0, Glucose Level 107H, Calcium Level 8.2L, Total Bilirubin 0.9 , Aspartate Amino Transf (AST/SGOT) 20, Alanine Aminotransferase (ALT/SGPT) 103H , Alkaline Phosphatase 145H, Total Protein 6.5, Albumin 2.0L, Globulin 4.5, Albumin/Globulin Ratio 0.4L Current Medications Medications (Trade) Dose Ordered Sig/Jose Route PRN Reason Start Time Stop Time Status Last Admin Dose Admin Acetaminophen (Tylenol) 650 mg Q4H PRN RECTAL Mild Pain (Pain Scale 1-3) 06/16/17 19:00 07/09/17 18:59 Alprazolam (Xanax) 2 mg DAILYPRN PRN ORAL Agitation 06/16/17 18:45 06/23/17 18:44 06/18/17 05:44 Alprazolam (Xanax) 2 mg Q12HR ORAL 06/16/17 21:00 06/20/17 20:59 06/19/17 21:13 Amikacin Sulfate 950 mg/Sodium Chloride 113.8 ml @ 227.6 mls/ hr FRI-FRI-FRI IV 06/18/17 21:00 06/25/17 23:59 06/18/17 22:02 Amphotericin B 50 mg/Dextrose 500 ml @ 100 mls/hr Q24H IV 06/16/17 20:00 06/21/17 19:59 06/19/17 21:12 Carisoprodol (Soma) 350 mg BID ORAL 06/17/17 20:00 07/15/17 19:59 06/19/17 18:56 Carisoprodol (Soma) 350 mg Q6H PRN ORAL MUSCLE SPASMS 06/16/17 19:00 07/14/17 18:59 06/17/17 21:35 Carvedilol (Coreg) 25 mg EVERY 12 HOURS ORAL 06/16/17 21:00 07/04/17 11:29 06/19/17 08:28 Chlorhexidine Gluconate (Mireille-Hex 2%) 1 applic DAILY@2000 TOPIC 06/16/17 20:00 07/05/17 19:59 06/19/17 21:12 Clonidine HCl (Catapres Tab) 0.1 mg Q4H PRN ORAL bp over 160 syst 06/16/17 19:00 07/03/17 18:59 Dextrose 1,000 ml @ 50 mls/hr Q20H IV 06/16/17 19:00 07/14/17 18:59 06/19/17 21:12 Dextrose (Dextrose 50%) STAT PRN IV Hypoglycemia 06/16/17 19:00 07/14/17 18:59 Docusate Sodium (Colace) 100 mg THREE TIMES A DAY ORAL 06/17/17 20:00 07/03/17 19:59 06/19/17 18:56 Ethambutol HCl (Myambutol) 1,000 mg 3XW ORAL 06/18/17 09:00 07/18/17 23:59 06/18/17 19:10 Levofloxacin (Levaquin) 750 mg EVERY OTHER DAY@2000 ORAL 06/17/17 20:00 06/24/17 19:59 06/19/17 21:13 Lisinopril (Prinivil) 20 mg BID ORAL 06/17/17 09:00 07/04/17 08:59 06/19/17 19:00 Meperidine HCl (Demerol) 25 mg ONCE PRN IM RIGOR AFTER AMPHO DOSE 06/16/17 19:00 06/23/17 18:59 Metronidazole (Flagyl) 500 mg Q8HR ORAL 06/17/17 22:00 06/24/17 21:59 06/19/17 21:13 Morphine Sulfate (Morphine Sulfate) 2 mg Q4H PRN IVP Moderate Pain (Pain Scale 4-6) 06/17/17 14:45 06/24/17 14:44 06/19/17 18:57 Nitroglycerin (Ntg) 0.4 mg Q5M PRN SL Prn Chest Pain 06/16/17 18:15 07/04/17 09:14 Nitroglycerin (Ntg) 1 patch Q24H TDERMAL 06/17/17 11:30 07/04/17 11:29 06/19/17 19:09 Ondansetron HCl (Zofran) 4 mg Q6H PRN IVP Nausea & Vomiting 06/16/17 18:30 07/14/17 18:29 Pantoprazole (Protonix) 40 mg ACBREAKFAST ORAL 06/17/17 06:30 07/15/17 06:29 06/19/17 05:12 Polyethylene Glycol (Miralax) 17 gm DAILYPRN PRN ORAL Constipation 06/16/17 18:30 07/14/17 18:29 Promethazine HCl/ Codeine (Phenergan with Codeine) 5 ml Q4H PRN ORAL For Cough 06/16/17 18:30 07/05/17 18:29 Sevelamer Carbonate (Renvela) 2,400 mg THREE TIMES A DAY ORAL 06/16/17 18:45 07/16/17 18:44 06/19/17 18:56 Christine Morgan MD Jun 19, 2017 21:59
[2017-06-20] VITALS: BP 140/70
[2017-06-20 04:02] VITALS: BP 119/78
[2017-06-20] MEDS: Morphine Sulfate 2mg/ml Inj IVP PRN ×5 (04:17→21:18)
[2017-06-20] MEDS: metroNIDAZOLE 500mg tab ORAL SCH ×3 (06:02→19:56)
[2017-06-20 07:56] VITALS: BP 128/76
[2017-06-20] MEDS: Lisinopril 20mg tab ORAL SCH ×2 (08:43→17:44)
[2017-06-20] MEDS: Carvedilol 25mg Tab ORAL SCH ×2 (08:43→19:56)
[2017-06-20] MEDS: Docusate 100mg cap ORAL SCH ×3 (08:43→17:43)
[2017-06-20] MEDS: ALPRAZolam 0.5mg tab ORAL SCH (08:43)
[2017-06-20 10:26] LABS: HEMATOCRIT 22.5 % (42.0-52.0); MEAN CORPUSCULAR VOLUME 93 FL (80-99); PLATELET COUNT 119 K/UL (150-450); RED BLOOD COUNT 2.42 M/UL (4.70-6.10); RED CELL DISTRIBUTION WIDTH 18.3 % (11.6-14.8); WHITE BLOOD COUNT 5.5 K/UL (4.8-10.8)
[2017-06-20 10:40] LABS: ALANINE AMINOTRANSFERASE 79 U/L (12-78); ALBUMIN 2.2 G/DL (3.4-5.0); ALBUMIN/GLOBULIN RATIO 0.5 (1.0-2.7); ALKALINE PHOSPHATASE 160 U/L (46-116); ANION GAP 7 mmol/L (5-15); ASPARTATE AMINO TRANSFERASE 17 U/L (15-37); BLOOD UREA NITROGEN 46 mg/dL (7-18); CALCIUM 8.4 MG/DL (8.5-10.1); CARBON DIOXIDE 34 MMOL/L (21-32); CHLORIDE 94 MMOL/L (98-107); PHOSPHORUS 4.9 MG/DL (2.5-4.9); POTASSIUM 4.2 MMOL/L (3.5-5.1); SODIUM 135 MMOL/L (136-145)
--- NOTE | 2017-06-20 11:34 | General Progress Note ---
Assessment/Plan Assessment/Plan #. Anemia secondary to chronic disease. --> Hemoglobin levels downtrended again. Will need prbc. --> S/P abd CAT scan revealing evidence of hepatic cirrhosis. --> Hepatosplenomegaly. Ascites. There is also evidence of generalized anasarca , with pleural fluid and generalized subcutaneous edema --> Continue to closely monitor and trend cbc daily. --> Anemia workup completed and reviewed. Iron 42, TIBC 180, Ferritin 593, B12 876. --> Ferritin is >500, hgb goal is >7 --> Anemia w/u has been reviewed --> ++Occult blood. Consider GI Services and Recs. --> Noted some abd pain, ongoing pain control. #. Anemia of kidney disease --> HD as needed per nephrology team --> Monitor closely. #. Generalized body ache related to fluid overload. #. End-stage renal disease, on hemodialysis as needed --> Monitor. S/P HD. #. Tachycardia, to be seen by Cardiology Service, isolated T-wave and ST- segment depression in V6. --> HR has been ~80-90bpm --> S/P Chest CT -- Evidence of worsening CHF/interstitial edema. --> Monitor for improvement. #. Elevated BNP, potentially related to underlying CKD. Subjective Date patient seen: Jun 19, 2017 Constitutional: Denies: no symptoms, chills, diaphoresis, fever, malaise, weakness, other HEENT: Denies: no symptoms, eye pain, blurred vision, tearing, double vision, ear pain, ear discharge, nose pain, nose congestion, throat pain, throat swelling, mouth pain, mouth swelling, other Cardiovascular: Denies: no symptoms, chest pain, edema, irregular heart rate, lightheadedness, palpitations, syncope, other Gastrointestinal/Abdominal: Denies: no symptoms, abdomen distended, abdominal pain, black stools, tarry stools, blood in stool, constipated, diarrhea, difficulty swallowing, nausea, poor appetite, poor fluid intake, rectal bleeding , vomiting, other Genitourinary: Denies: no symptoms, burning, discharge, frequency, flank pain, hematuria, incontinence, pain, urgency, other Neurologic/Psychiatric: Denies: no symptoms, anxiety, depressed, emotional problems, headache, numbness, paresthesia, pre-existing deficit, seizure, tingling, tremors, weakness, other Hematologic/Lymphatic: Reports: anemia Allergies: Coded Allergies: No Known Allergies (Unverified , 10/24/15) Subjective Hemoglobin downtrended from yesterday. On Pain control for abd pain. Objective Last 24 Hour Vital Signs Date Time Temp Pulse Resp B/P (MAP) Pulse Ox O2 Delivery O2 Flow Rate FiO2 06/20/17 08:43 128/76 06/20/17 08:43 78 128/76 06/20/17 07:56 98.0 78 20 128/76 95 98.0 06/20/17 06:53 Nasal Cannula 4.0 36 06/20/17 06:53 96 Nasal Cannula 4.0 36 06/20/17 04:47 97.2 06/20/17 04:17 97.2 06/20/17 04:02 97.2 70 20 119/78 94 97.2 06/20/17 04:02 94 Nasal Cannula 4.0 06/20/17 00:10 96 Nasal Cannula 4.0 06/20/17 00:00 97.9 71 20 140/70 96 97.9 06/19/17 23:39 97.9 06/19/17 21:00 72 100/74 06/19/17 20:35 72 16 Nasal Cannula 4.0 36 06/19/17 20:33 95 Nasal Cannula 4.0 36 06/19/17 20:33 Nasal Cannula 4.0 36 06/19/17 20:00 97.9 110 20 100/74 97 97.9 06/19/17 20:00 97 Nasal Cannula 4.0 06/19/17 19:30 97.9 06/19/17 19:09 123/72 06/19/17 19:00 123/73 06/19/17 16:00 97.9 68 20 123/79 92 Nasal Cannula 97.9 06/19/17 12:00 98.1 72 20 123/72 100 98.1 06/19/17 12:00 Nasal Cannula 4.0 Intake and Output 06/19/17 06/20/17 19:00 07:00 Intake Total 650 ml 1160 ml Output Total 0 ml Balance 650 ml 1160 ml Intake Oral 360 ml IV Total 350 ml 800 ml Other 300 ml Stool Total 0 ml Laboratory Tests 06/20/17 10:00: White Blood Count 5.5, Red Blood Count 2.42L, Hemoglobin 7.0L, Hematocrit 22.5L , Mean Corpuscular Volume 93, Mean Corpuscular Hemoglobin 29.2, Mean Corpuscular Hemoglobin Concent 31.3L, Red Cell Distribution Width 18.3H, Platelet Count 119L, Mean Platelet Volume 7.1, Neutrophils (%) (Auto) , Lymphocytes (%) (Auto) , Monocytes (%) (Auto) , Eosinophils (%) (Auto) , Basophils (%) (Auto) , Differential Total Cells Counted 100, Neutrophils % ( Manual) 55, Lymphocytes % (Manual) 22, Monocytes % (Manual) 21H, Eosinophils % ( Manual) 0, Basophils % (Manual) 0, Band Neutrophils 2, Platelet Estimate DecreasedL, Platelet Morphology Normal, Hypochromasia 1+, Anisocytosis 1+, Sodium Level 135L, Potassium Level 4.2, Chloride Level 94L, Carbon Dioxide Level 34H, Anion Gap 7, Blood Urea Nitrogen 46H, Creatinine 11.0H, Estimat Glomerular Filtration Rate 5.8, Glucose Level 75, Calcium Level 8.4L, Phosphorus Level 4.9, Magnesium Level 1.9, Total Bilirubin 1.0, Aspartate Amino Transf (AST/SGOT) 17, Alanine Aminotransferase (ALT/SGPT) 79H, Alkaline Phosphatase 160H, Total Protein 6.9, Albumin 2.2L, Globulin 4.7, Albumin/ Globulin Ratio 0.5L Height (Feet): 5 Height (Inches): 7.00 Weight (Pounds): 224 General Appearance: mild distress Respiratory/Chest: decreased breath sounds Abdomen: soft Edema: trace edema Irving Parker MD Jun 20, 2017 11:34
[2017-06-20 11:51] VITALS: BP 126/77
--- NOTE | 2017-06-20 12:31 | Nephrology Progress Note ---
Assessment/Plan Problem List: (1) ESRD (end stage renal disease) on dialysis (2) Shortness of breath (3) Anemia Assessment worsenning Anemia ESRD , missed HD , admitted with high K and pulmonary edema Acute respiratory distress due to volume overload elevated troponin r/o ACS h/o COPD ? exacerbation HTN urgency Cardiomyopathy L AICD anemia of chronic kidney disease Hx of CVA Plan Plan: Low H&H - consider transfusion HD next 06/20 Transfused Phos binders BP meds adjustment Optimize cardiac status per orders Subjective ROS Limited/Unobtainable: No Constitutional: Reports: malaise Objective Objective Last 24 Hour Vital Signs Date Time Temp Pulse Resp B/P (MAP) Pulse Ox O2 Delivery O2 Flow Rate FiO2 06/20/17 11:51 97.7 75 20 126/77 95 97.7 06/20/17 08:43 128/76 06/20/17 08:43 78 128/76 06/20/17 07:56 98.0 78 20 128/76 95 98.0 06/20/17 06:53 Nasal Cannula 4.0 36 06/20/17 06:53 96 Nasal Cannula 4.0 36 06/20/17 04:47 97.2 06/20/17 04:17 97.2 06/20/17 04:02 97.2 70 20 119/78 94 97.2 06/20/17 04:02 94 Nasal Cannula 4.0 06/20/17 00:10 96 Nasal Cannula 4.0 06/20/17 00:00 97.9 71 20 140/70 96 97.9 06/19/17 23:39 97.9 06/19/17 21:00 72 100/74 06/19/17 20:35 72 16 Nasal Cannula 4.0 36 06/19/17 20:33 95 Nasal Cannula 4.0 36 06/19/17 20:33 Nasal Cannula 4.0 36 06/19/17 20:00 97.9 110 20 100/74 97 97.9 06/19/17 20:00 97 Nasal Cannula 4.0 06/19/17 19:30 97.9 06/19/17 19:09 123/72 06/19/17 19:00 123/73 06/19/17 16:00 97.9 68 20 123/79 92 Nasal Cannula 97.9 Intake and Output 06/19/17 06/20/17 19:00 07:00 Intake Total 650 ml 1160 ml Output Total 0 ml Balance 650 ml 1160 ml Intake Oral 360 ml IV Total 350 ml 800 ml Other 300 ml Stool Total 0 ml Laboratory Tests 06/20/17 10:00: White Blood Count 5.5, Red Blood Count 2.42L, Hemoglobin 7.0L, Hematocrit 22.5L , Mean Corpuscular Volume 93, Mean Corpuscular Hemoglobin 29.2, Mean Corpuscular Hemoglobin Concent 31.3L, Red Cell Distribution Width 18.3H, Platelet Count 119L, Mean Platelet Volume 7.1, Neutrophils (%) (Auto) , Lymphocytes (%) (Auto) , Monocytes (%) (Auto) , Eosinophils (%) (Auto) , Basophils (%) (Auto) , Differential Total Cells Counted 100, Neutrophils % ( Manual) 55, Lymphocytes % (Manual) 22, Monocytes % (Manual) 21H, Eosinophils % ( Manual) 0, Basophils % (Manual) 0, Band Neutrophils 2, Platelet Estimate DecreasedL, Platelet Morphology Normal, Hypochromasia 1+, Anisocytosis 1+, Sodium Level 135L, Potassium Level 4.2, Chloride Level 94L, Carbon Dioxide Level 34H, Anion Gap 7, Blood Urea Nitrogen 46H, Creatinine 11.0H, Estimat Glomerular Filtration Rate 5.8, Glucose Level 75, Calcium Level 8.4L, Phosphorus Level 4.9, Magnesium Level 1.9, Total Bilirubin 1.0, Aspartate Amino Transf (AST/SGOT) 17, Alanine Aminotransferase (ALT/SGPT) 79H, Alkaline Phosphatase 160H, Total Protein 6.9, Albumin 2.2L, Globulin 4.7, Albumin/ Globulin Ratio 0.5L Height (Feet): 5 Height (Inches): 7.00 Weight (Pounds): 224 General Appearance: no apparent distress Objective no change LIAM MONTELONGO Jun 20, 2017 12:31
[2017-06-20] MEDS: ALPRAZolam 0.5mg tab ORAL PRN (12:48)
--- NOTE | 2017-06-20 13:46 | General Surgery Progress Note ---
General Surgery-Progress Note Subjective Symptoms: improved Additional Comments no acute events. comfortable. pain improved. lft's improving Objective Last 24 Hour Vital Signs Date Time Temp Pulse Resp B/P (MAP) Pulse Ox O2 Delivery O2 Flow Rate FiO2 06/20/17 11:51 97.7 75 20 126/77 95 97.7 06/20/17 08:43 128/76 06/20/17 08:43 78 128/76 06/20/17 07:56 98.0 78 20 128/76 95 98.0 06/20/17 06:53 Nasal Cannula 4.0 36 06/20/17 06:53 96 Nasal Cannula 4.0 36 06/20/17 04:47 97.2 06/20/17 04:17 97.2 06/20/17 04:02 97.2 70 20 119/78 94 97.2 06/20/17 04:02 94 Nasal Cannula 4.0 06/20/17 00:10 96 Nasal Cannula 4.0 06/20/17 00:00 97.9 71 20 140/70 96 97.9 06/19/17 23:39 97.9 06/19/17 21:00 72 100/74 06/19/17 20:35 72 16 Nasal Cannula 4.0 36 06/19/17 20:33 95 Nasal Cannula 4.0 36 06/19/17 20:33 Nasal Cannula 4.0 36 06/19/17 20:00 97.9 110 20 100/74 97 97.9 06/19/17 20:00 97 Nasal Cannula 4.0 06/19/17 19:30 97.9 06/19/17 19:09 123/72 06/19/17 19:00 123/73 06/19/17 16:00 97.9 68 20 123/79 92 Nasal Cannula 97.9 I&O Intake and Output 06/19/17 06/20/17 19:00 07:00 Intake Total 650 ml 1160 ml Output Total 0 ml Balance 650 ml 1160 ml Intake Oral 360 ml IV Total 350 ml 800 ml Other 300 ml Stool Total 0 ml Drains: none Cardiovascular: RSR Respiratory: clear Abdomen: soft, distended, non-tender, present bowel sounds Extremities: no cyanosis Laboratory Tests Test 06/20/17 10:00 White Blood Count 5.5 K/UL (4.8-10.8) Red Blood Count 2.42 M/UL (4.70-6.10) L Hemoglobin 7.0 G/DL (14.2-18.0) L Hematocrit 22.5 % (42.0-52.0) L Mean Corpuscular Volume 93 FL (80-99) Mean Corpuscular Hemoglobin 29.2 PG (27.0-31.0) Mean Corpuscular Hemoglobin Concent 31.3 G/DL (32.0-36.0) L Red Cell Distribution Width 18.3 % (11.6-14.8) H Platelet Count 119 K/UL (150-450) L Mean Platelet Volume 7.1 FL (6.5-10.1) Neutrophils (%) (Auto) % (45.0-75.0) Lymphocytes (%) (Auto) % (20.0-45.0) Monocytes (%) (Auto) % (1.0-10.0) Eosinophils (%) (Auto) % (0.0-3.0) Basophils (%) (Auto) % (0.0-2.0) Differential Total Cells Counted 100 Neutrophils % (Manual) 55 % (45-75) Lymphocytes % (Manual) 22 % (20-45) Monocytes % (Manual) 21 % (1-10) H Eosinophils % (Manual) 0 % (0-3) Basophils % (Manual) 0 % (0-2) Band Neutrophils 2 % (0-8) Platelet Estimate Decreased L Platelet Morphology Normal Hypochromasia 1+ Anisocytosis 1+ Sodium Level 135 MMOL/L (136-145) L Potassium Level 4.2 MMOL/L (3.5-5.1) Chloride Level 94 MMOL/L (98-107) L Carbon Dioxide Level 34 MMOL/L (21-32) H Anion Gap 7 mmol/L (5-15) Blood Urea Nitrogen 46 mg/dL (7-18) H Creatinine 11.0 MG/DL (0.55-1.30) H Estimat Glomerular Filtration Rate 5.8 mL/min (>60) Glucose Level 75 MG/DL (74-106) Calcium Level 8.4 MG/DL (8.5-10.1) L Phosphorus Level 4.9 MG/DL (2.5-4.9) Magnesium Level 1.9 MG/DL (1.8-2.4) Total Bilirubin 1.0 MG/DL (0.2-1.0) Aspartate Amino Transf (AST/SGOT) 17 U/L (15-37) Alanine Aminotransferase (ALT/SGPT) 79 U/L (12-78) H Alkaline Phosphatase 160 U/L (46-116) H Total Protein 6.9 G/DL (6.4-8.2) Albumin 2.2 G/DL (3.4-5.0) L Globulin 4.7 g/dL Albumin/Globulin Ratio 0.5 (1.0-2.7) L Plan Problems: (1) Intractable abdominal pain Assessment & Plan: 57M with abdominal pain. elevated lft's and ultrasound reviewed. has liver cirrhosis, ascites, and gallbladder findings on ultrasound likely secondary to intrinsic liver disease. on exam his abdominal pain is fairly superficial and around this right abd upper and lower and right flank. he has edema and thickening of the right subcutaneous tissues as compared to the left. possible abscess vs cellulitis? Ultrasound findings: Impression: Ascites Evidence of hepatic cirrhosis Cholelithiasis. There is gallbladder wall thickening, likely related to hemodynamic abnormalities related to the hepatic abnormality, particularly as this is evident on the prior exam of 2 years earlier. However, acute cholecystitis cannot be completely ruled out, and hepatobiliary scanning is recommended if there is high clinical suspicion CT findings: Impression: Evidence of hepatic cirrhosis. Hepatosplenomegaly Ascites. There is also evidence of generalized anasarca, with pleural fluid and generalized subcutaneous edema Cholelithiasis, also previously reported Possible diverticulosis. No evidence of diverticulitis Nonvisualized appendix. No evidence of appendicitis Left renal cysts. Subcentimeter right lobe hepatic and bilateral renal lesions, too small to characterize, most likely benign simple cysts. No further follow-up necessary Bilateral pleural effusions and parenchymal consolidation. LFT's improving. but still no clear explanation as to acute elevation in LFT' s. Right sided abdominal pain improved CT A/P reviewed. Hep C + -given exam, radiological findings, history, unlikely to be acute cholecystitis. exam with discomfort in right upper/lower/flank region and improving ultrasound findings similar to that of two years ago. -no acute surgical intervention recommended at this time. -cont Ever Augustin Jun 20, 2017 13:46
--- NOTE | 2017-06-20 14:51 | Infectious Diseases Prog Note ---
Assessment/Plan Assessment/Plan Cavitary PNA. SCx: Neg ( m/l necrotizing Pneum, less likely fungal and doubt TB ) -sp cx 06/18 GNR Rsp status improved up to yesterday but on 06/[address] his condition worsen T-SPOT :Neg AFB x 3 : Neg MTB PCR x2 : neg cryptococcus Ag : neg CT chest 06/15: Slightly smaller (6 cm diameter ) but mostly unchanged cavitary lesion in the right lung, previously thought to represent a cavitating inflammatory process. Lung abscess is certainly a possibility. Fairly extensive bilateral pulmonary parenchymal consolidation, slightly increased from previous exam of 06/05/2017. Likely a combination of pulmonary edema and pneumonia. Small right and trace left pleural effusion, new/increased from the previous study. CT 06/05: 7.8 x 5.3 x 6.6 cm dense opacity in the posterior inferior right upper lobe with a central cavitation. Chest x-ray : right mid lung infiltrate, possible cavitation Rule out tuberculosis, fungal infection, or necrotizing pneumonia. CRP 14 Influenza negative Low-grade fever, SP Status post leukocytosis. Transaminitis , probably 2/2 Hep C cirrhosis- no active Hep C as VL not dected -CT abd/p: Evidence of hepatic cirrhosis. Hepatosplenomegaly. evidence of generalized anasarca, with pleural fluid and generalized subcutaneous edema. Cholelithiasis, also previously reported. Possible diverticulosis. No evidence of diverticulitis US Abd : Cholelithiasis. There is gallbladder wall thickening, likely related to hemodynamic abnormalities Splenomegaly. Evidence of hepatic cirrhosis HIV : NEG Hep Panel B neg , C Ab : +ve , VL not detected leukopenia and TCP 2/2 splenomegaly Seizure disorder History of CVA History of pacemaker placement Hyperlipidemia Hypertension COPD/asthma End-stage renal disease, on hemodialysis Diabetes Anxiety Anemia Echo, ejection fraction 45% to 50%. PLAN: Cont empiric AmphoB #7( possible Aspergillosis) pending cultures and fungal serologies -once LFTs improved, can do voriconazole challenge -Continue Flagyl (in addition with Levaquin will provide anaerobic coverage for possible aspiration/cavitary PNA as no isolation of resistant organisms); abx d # 18/21-28 Continue empiric Ethambutol , amikacin d# 7 and Levaquin d# 8 ( TB Control recs to start TB Rx, doubt that this is needed at his time pt has pt improved initially, wups so far neg for TB, has increased of LFT , ) -f/u sp cx GNR -CXR am -if fever, leukocytosis, increased O2 requirements add CEfepime 3/ SP IV Vancomycin #14, Meropenem #5 3/9 SP Zosyn d# 10 3/4 SP Zithromax D# 6 f/u sputum culture (, fungal, and AFB x3). f/u Coccidioidal ,Galactomannan and Fungitell, Histoplasma ag urine and ab, blastomycies ab Airborne isolation for now may need BAL , will defer this to Pul team may need JIMY ro SBE w emboli to lung ( hx of AICD ) Subjective Allergies: Coded Allergies: No Known Allergies (Unverified , 10/24/15) Subjective afebrile no leukocytosis LFTs improving fungal serologies pending Objective Vital Signs Last 24 Hour Vital Signs Date Time Temp Pulse Resp B/P (MAP) Pulse Ox O2 Delivery O2 Flow Rate FiO2 06/20/17 11:51 97.7 75 20 126/77 95 97.7 06/20/17 08:43 128/76 06/20/17 08:43 78 128/76 06/20/17 07:56 98.0 78 20 128/76 95 98.0 06/20/17 06:53 Nasal Cannula 4.0 36 06/20/17 06:53 96 Nasal Cannula 4.0 36 06/20/17 04:47 97.2 06/20/17 04:17 97.2 06/20/17 04:02 97.2 70 20 119/78 94 97.2 06/20/17 04:02 94 Nasal Cannula 4.0 06/20/17 00:10 96 Nasal Cannula 4.0 06/20/17 00:00 97.9 71 20 140/70 96 97.9 06/19/17 23:39 97.9 06/19/17 21:00 72 100/74 06/19/17 20:35 72 16 Nasal Cannula 4.0 36 06/19/17 20:33 95 Nasal Cannula 4.0 36 06/19/17 20:33 Nasal Cannula 4.0 36 06/19/17 20:00 97.9 110 20 100/74 97 97.9 06/19/17 20:00 97 Nasal Cannula 4.0 06/19/17 19:30 97.9 06/19/17 19:09 123/72 06/19/17 19:00 123/73 06/19/17 16:00 97.9 68 20 123/79 92 Nasal Cannula 97.9 Height (Feet): 5 Height (Inches): 7.00 Weight (Pounds): 224 Objective General Appearance: WD/WN, alert, moderate distress EENT: PERRL/EOMI, normal ENT inspection Neck: non-tender, normal alignment, supple, normal inspection Cardiovascular: normal peripheral pulses, normal rate, regular rhythm, no gallop/murmur, no JVD Respiratory/Chest: Non rebreather; respiratory distress, crackles/rales, rhonchi - bilaterally, expiratory wheezing Abdomen: normal bowel sounds, non tender, soft, no organomegaly, no mass Extremities: normal range of motion Neurologic: food broker 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, no motor/sensory deficits Skin: normal pigmentation, warm/dry Microbiology Date/Time Source Procedure Growth Status 06/18/17 17:00 Sputum Gram Stain - Final Resulted 06/18/17 17:00 Sputum Culture - Preliminary Gram Negative Bacillus 1 Resulted Laboratory Tests Test 06/20/17 10:00 White Blood Count 5.5 K/UL (4.8-10.8) Red Blood Count 2.42 M/UL (4.70-6.10) L Hemoglobin 7.0 G/DL (14.2-18.0) L Hematocrit 22.5 % (42.0-52.0) L Mean Corpuscular Volume 93 FL (80-99) Mean Corpuscular Hemoglobin 29.2 PG (27.0-31.0) Mean Corpuscular Hemoglobin Concent 31.3 G/DL (32.0-36.0) L Red Cell Distribution Width 18.3 % (11.6-14.8) H Platelet Count 119 K/UL (150-450) L Mean Platelet Volume 7.1 FL (6.5-10.1) Neutrophils (%) (Auto) % (45.0-75.0) Lymphocytes (%) (Auto) % (20.0-45.0) Monocytes (%) (Auto) % (1.0-10.0) Eosinophils (%) (Auto) % (0.0-3.0) Basophils (%) (Auto) % (0.0-2.0) Differential Total Cells Counted 100 Neutrophils % (Manual) 55 % (45-75) Lymphocytes % (Manual) 22 % (20-45) Monocytes % (Manual) 21 % (1-10) H Eosinophils % (Manual) 0 % (0-3) Basophils % (Manual) 0 % (0-2) Band Neutrophils 2 % (0-8) Platelet Estimate Decreased L Platelet Morphology Normal Hypochromasia 1+ Anisocytosis 1+ Sodium Level 135 MMOL/L (136-145) L Potassium Level 4.2 MMOL/L (3.5-5.1) Chloride Level 94 MMOL/L (98-107) L Carbon Dioxide Level 34 MMOL/L (21-32) H Anion Gap 7 mmol/L (5-15) Blood Urea Nitrogen 46 mg/dL (7-18) H Creatinine 11.0 MG/DL (0.55-1.30) H Estimat Glomerular Filtration Rate 5.8 mL/min (>60) Glucose Level 75 MG/DL (74-106) Calcium Level 8.4 MG/DL (8.5-10.1) L Phosphorus Level 4.9 MG/DL (2.5-4.9) Magnesium Level 1.9 MG/DL (1.8-2.4) Total Bilirubin 1.0 MG/DL (0.2-1.0) Aspartate Amino Transf (AST/SGOT) 17 U/L (15-37) Alanine Aminotransferase (ALT/SGPT) 79 U/L (12-78) H Alkaline Phosphatase 160 U/L (46-116) H Total Protein 6.9 G/DL (6.4-8.2) Albumin 2.2 G/DL (3.4-5.0) L Globulin 4.7 g/dL Albumin/Globulin Ratio 0.5 (1.0-2.7) L Current Medications Medications (Trade) Dose Ordered Sig/Jose Route PRN Reason Start Time Stop Time Status Last Admin Dose Admin Acetaminophen (Tylenol) 650 mg Q4H PRN RECTAL Mild Pain (Pain Scale 1-3) 06/16/17 19:00 07/09/17 18:59 Alprazolam (Xanax) 2 mg DAILYPRN PRN ORAL Agitation 06/16/17 18:45 06/23/17 18:44 06/20/17 12:48 Alprazolam (Xanax) 2 mg Q12HR ORAL 06/16/17 21:00 06/20/17 20:59 06/20/17 08:43 Amikacin Sulfate 950 mg/Sodium Chloride 113.8 ml @ 227.6 mls/ hr FRI- IV 06/18/17 21:00 06/25/17 23:59 06/18/17 22:02 Amphotericin B 50 mg/Dextrose 500 ml @ 100 mls/hr Q24H IV 06/16/17 20:00 06/21/17 19:59 06/19/17 21:12 Carisoprodol (Soma) 350 mg BID ORAL 06/17/17 20:00 07/15/17 19:59 06/20/17 08:42 Carisoprodol (Soma) 350 mg Q6H PRN ORAL MUSCLE SPASMS 06/16/17 19:00 07/14/17 18:59 06/17/17 21:35 Carvedilol (Coreg) 25 mg EVERY 12 HOURS ORAL 06/16/17 21:00 07/04/17 11:29 06/20/17 08:43 Chlorhexidine Gluconate (Mireille-Hex 2%) 1 applic DAILY@1999 TOPIC 06/16/17 20:00 07/05/17 19:59 06/19/17 21:12 Clonidine HCl (Catapres Tab) 0.1 mg Q4H PRN ORAL bp over 160 syst 06/16/17 19:00 07/03/17 18:59 Dextrose 1,000 ml @ 50 mls/hr Q20H IV 06/16/17 19:00 07/14/17 18:59 06/19/17 21:12 Dextrose (Dextrose 50%) STAT PRN IV Hypoglycemia 06/16/17 19:00 07/14/17 18:59 Docusate Sodium (Colace) 100 mg THREE TIMES A DAY ORAL 06/17/17 20:00 07/03/17 19:59 06/20/17 08:43 Ethambutol HCl (Myambutol) 1,000 mg 3XW ORAL 06/18/17 09:00 07/18/17 23:59 06/20/17 08:44 Levofloxacin (Levaquin) 750 mg EVERY OTHER DAY@1999 ORAL 06/17/17 20:00 06/24/17 19:59 06/19/17 21:13 Lisinopril (Prinivil) 20 mg BID ORAL 06/17/17 09:00 07/04/17 08:59 06/20/17 08:43 Meperidine HCl (Demerol) 25 mg ONCE PRN IM RIGOR AFTER AMPHO DOSE 06/16/17 19:00 06/23/17 18:59 Metronidazole (Flagyl) 500 mg Q8HR ORAL 06/17/17 22:00 06/24/17 21:59 06/20/17 06:02 Morphine Sulfate (Morphine Sulfate) 2 mg Q4H PRN IVP Moderate Pain (Pain Scale 4-6) 06/17/17 14:45 06/24/17 14:44 06/20/17 12:39 Nitroglycerin (Ntg) 0.4 mg Q5M PRN SL Prn Chest Pain 06/16/17 18:15 07/04/17 09:14 Nitroglycerin (Ntg) 1 patch Q24H TDERMAL 06/17/17 11:30 07/04/17 11:29 06/19/17 19:09 Ondansetron HCl (Zofran) 4 mg Q6H PRN IVP Nausea & Vomiting 06/16/17 18:30 07/14/17 18:29 Pantoprazole (Protonix) 40 mg ACBREAKFAST ORAL 06/17/17 06:30 07/15/17 06:29 06/20/17 06:02 Polyethylene Glycol (Miralax) 17 gm DAILYPRN PRN ORAL Constipation 06/16/17 18:30 07/14/17 18:29 Promethazine HCl/ Codeine (Phenergan with Codeine) 5 ml Q4H PRN ORAL For Cough 06/16/17 18:30 07/05/17 18:29 Sevelamer Carbonate (Renvela) 2,400 mg THREE TIMES A DAY ORAL 06/16/17 18:45 07/16/17 18:44 06/20/17 08:42 Aleja Crocker M.D. Jun 20, 2017 14:51
[2017-06-20 16:08] VITALS: BP 113/75
--- NOTE | 2017-06-20 16:13 | Pulmonology Progress Note ---
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 Sputum shows only charli hold heparin for low PLT prbc prn on anti TB meds all notes reviewed f/u wbc and cultures Subjective ROS Limited/Unobtainable: No Constitutional: Reports: no symptoms HEENT: Repors: no symptoms Respiratory: Reports: no symptoms Allergies: Coded Allergies: No Known Allergies (Unverified , 10/24/15) Objective Last 24 Hour Vital Signs Date Time Temp Pulse Resp B/P (MAP) Pulse Ox O2 Delivery O2 Flow Rate FiO2 06/20/17 16:08 97.9 67 20 113/75 95 97.9 06/20/17 13:25 Nasal Cannula 2.0 06/20/17 11:51 97.7 75 20 126/77 95 97.7 06/20/17 08:43 128/76 06/20/17 08:43 78 128/76 06/20/17 07:56 98.0 78 20 128/76 95 98.0 06/20/17 06:53 Nasal Cannula 4.0 36 06/20/17 06:53 96 Nasal Cannula 4.0 36 06/20/17 04:47 97.2 06/20/17 04:17 97.2 06/20/17 04:02 97.2 70 20 119/78 94 97.2 06/20/17 04:02 94 Nasal Cannula 4.0 06/20/17 00:10 96 Nasal Cannula 4.0 06/20/17 00:00 97.9 71 20 140/70 96 97.9 06/19/17 23:39 97.9 06/19/17 21:00 72 100/74 06/19/17 20:35 72 16 Nasal Cannula 4.0 36 06/19/17 20:33 95 Nasal Cannula 4.0 36 06/19/17 20:33 Nasal Cannula 4.0 36 06/19/17 20:00 97.9 110 20 100/74 97 97.9 06/19/17 20:00 97 Nasal Cannula 4.0 06/19/17 19:30 97.9 06/19/17 19:09 123/72 06/19/17 19:00 123/73 Intake and Output 06/19/17 06/20/17 19:00 07:00 Intake Total 650 ml 1160 ml Output Total 0 ml Balance 650 ml 1160 ml Intake Oral 360 ml IV Total 350 ml 800 ml Other 300 ml Stool Total 0 ml Objective General Appearance: WD/WN HEENT: normocephalic, atraumatic, anicteric Respiratory/Chest: loud rhonchi Cardiovascular: normal peripheral pulses, normal rate, regular rhythm Abdomen: normal bowel sounds, soft, non tender, no organomegaly Genitourinary: normal external genitalia Extremities: no cyanosis Skin: no rash, no lesions 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, no motor/sensory deficits Lymphatic: no neck adenopathy, no groin adenopathy Microbiology Date/Time Source Procedure Growth Status 06/18/17 17:00 Sputum Gram Stain - Final Resulted 06/18/17 17:00 Sputum Culture - Preliminary Gram Negative Bacillus 1 Resulted Laboratory Tests 06/20/17 10:00: White Blood Count 5.5, Red Blood Count 2.42L, Hemoglobin 7.0L, Hematocrit 22.5L , Mean Corpuscular Volume 93, Mean Corpuscular Hemoglobin 29.2, Mean Corpuscular Hemoglobin Concent 31.3L, Red Cell Distribution Width 18.3H, Platelet Count 119L, Mean Platelet Volume 7.1, Neutrophils (%) (Auto) , Lymphocytes (%) (Auto) , Monocytes (%) (Auto) , Eosinophils (%) (Auto) , Basophils (%) (Auto) , Differential Total Cells Counted 100, Neutrophils % ( Manual) 55, Lymphocytes % (Manual) 22, Monocytes % (Manual) 21H, Eosinophils % ( Manual) 0, Basophils % (Manual) 0, Band Neutrophils 2, Platelet Estimate DecreasedL, Platelet Morphology Normal, Hypochromasia 1+, Anisocytosis 1+, Sodium Level 135L, Potassium Level 4.2, Chloride Level 94L, Carbon Dioxide Level 34H, Anion Gap 7, Blood Urea Nitrogen 46H, Creatinine 11.0H, Estimat Glomerular Filtration Rate 5.8, Glucose Level 75, Calcium Level 8.4L, Phosphorus Level 4.9, Magnesium Level 1.9, Total Bilirubin 1.0, Aspartate Amino Transf (AST/SGOT) 17, Alanine Aminotransferase (ALT/SGPT) 79H, Alkaline Phosphatase 160H, Total Protein 6.9, Albumin 2.2L, Globulin 4.7, Albumin/ Globulin Ratio 0.5L Current Medications Medications (Trade) Dose Ordered Sig/Jose Route PRN Reason Start Time Stop Time Status Last Admin Dose Admin Acetaminophen (Tylenol) 650 mg Q4H PRN RECTAL Mild Pain (Pain Scale 1-3) 06/16/17 19:00 07/09/17 18:59 Alprazolam (Xanax) 2 mg DAILYPRN PRN ORAL Agitation 06/16/17 18:45 06/23/17 18:44 06/20/17 12:48 Alprazolam (Xanax) 2 mg Q12HR ORAL 06/16/17 21:00 06/20/17 20:59 06/20/17 08:43 Alteplase, Recombinant (Cathflo) 4 mg ONCE ONCE INJ 06/20/17 17:00 06/20/17 17:01 Amikacin Sulfate 950 mg/Sodium Chloride 113.8 ml @ 227.6 mls/ hr FRI-FRI-FRI IV 06/18/17 21:00 06/25/17 23:59 06/18/17 22:02 Amphotericin B 50 mg/Dextrose 500 ml @ 100 mls/hr Q24H IV 06/16/17 20:00 06/21/17 19:59 06/19/17 21:12 Carisoprodol (Soma) 350 mg BID ORAL 06/17/17 20:00 07/15/17 19:59 06/20/17 08:42 Carisoprodol (Soma) 350 mg Q6H PRN ORAL MUSCLE SPASMS 06/16/17 19:00 07/14/17 18:59 06/17/17 21:35 Carvedilol (Coreg) 25 mg EVERY 12 HOURS ORAL 06/16/17 21:00 07/04/17 11:29 06/20/17 08:43 Chlorhexidine Gluconate (Mireille-Hex 2%) 1 applic DAILY@2000 TOPIC 06/16/17 20:00 07/05/17 19:59 06/19/17 21:12 Clonidine HCl (Catapres Tab) 0.1 mg Q4H PRN ORAL bp over 160 syst 06/16/17 19:00 07/03/17 18:59 Dextrose 1,000 ml @ 50 mls/hr Q20H IV 06/16/17 19:00 07/14/17 18:59 06/19/17 21:12 Dextrose (Dextrose 50%) STAT PRN IV Hypoglycemia 06/16/17 19:00 07/14/17 18:59 Docusate Sodium (Colace) 100 mg THREE TIMES A DAY ORAL 06/17/17 20:00 07/03/17 19:59 06/20/17 08:43 Ethambutol HCl (Myambutol) 1,000 mg 3XW ORAL 06/18/17 09:00 07/18/17 23:59 06/20/17 08:44 Levofloxacin (Levaquin) 750 mg EVERY OTHER DAY@2000 ORAL 06/17/17 20:00 06/24/17 19:59 06/19/17 21:13 Lisinopril (Prinivil) 20 mg BID ORAL 06/17/17 09:00 07/04/17 08:59 06/20/17 08:43 Meperidine HCl (Demerol) 25 mg ONCE PRN IM RIGOR AFTER AMPHO DOSE 06/16/17 19:00 06/23/17 18:59 Metronidazole (Flagyl) 500 mg Q8HR ORAL 06/17/17 22:00 06/24/17 21:59 06/20/17 06:02 Morphine Sulfate (Morphine Sulfate) 2 mg Q4H PRN IVP Moderate Pain (Pain Scale 4-6) 06/17/17 14:45 06/24/17 14:44 06/20/17 12:39 Nitroglycerin (Ntg) 0.4 mg Q5M PRN SL Prn Chest Pain 06/16/17 18:15 07/04/17 09:14 Nitroglycerin (Ntg) 1 patch Q24H TDERMAL 06/17/17 11:30 07/04/17 11:29 06/19/17 19:09 Ondansetron HCl (Zofran) 4 mg Q6H PRN IVP Nausea & Vomiting 06/16/17 18:30 07/14/17 18:29 Pantoprazole (Protonix) 40 mg ACBREAKFAST ORAL 06/17/17 06:30 07/15/17 06:29 06/20/17 06:02 Polyethylene Glycol (Miralax) 17 gm DAILYPRN PRN ORAL Constipation 06/16/17 18:30 07/14/17 18:29 Promethazine HCl/ Codeine (Phenergan with Codeine) 5 ml Q4H PRN ORAL For Cough 06/16/17 18:30 07/05/17 18:29 Sevelamer Carbonate (Renvela) 2,400 mg THREE TIMES A DAY ORAL 06/16/17 18:45 07/16/17 18:44 06/20/17 08:42 Christine Morgan MD Jun 20, 2017 16:12
[2017-06-20] MEDS ORDERED: Cathflo Alteplase 2mg Inj INJ ONE (17:00)
--- NOTE | 2017-06-20 17:06 | Internal Med Progress Note ---
Subjective Date of Service: Jun 20, 2017 Physician Name Zoey Pires Attending Physician Chaitanya Weinstein MD Current Medications Medications (Trade) Dose Ordered Sig/Jose Route PRN Reason Start Time Stop Time Status Last Admin Dose Admin Acetaminophen (Tylenol) 650 mg Q4H PRN RECTAL Mild Pain (Pain Scale 1-3) 06/16/17 19:00 07/09/17 18:59 Alprazolam (Xanax) 2 mg DAILYPRN PRN ORAL Agitation 06/16/17 18:45 06/23/17 18:44 06/20/17 12:48 Alprazolam (Xanax) 2 mg Q12HR ORAL 06/16/17 21:00 06/20/17 20:59 06/20/17 08:43 Amikacin Sulfate 950 mg/Sodium Chloride 113.8 ml @ 227.6 mls/ hr FRI-FRI-FRI IV 06/18/17 21:00 06/25/17 23:59 06/18/17 22:02 Amphotericin B 50 mg/Dextrose 500 ml @ 100 mls/hr Q24H IV 06/16/17 20:00 06/21/17 19:59 06/19/17 21:12 Carisoprodol (Soma) 350 mg BID ORAL 06/17/17 20:00 07/15/17 19:59 06/20/17 08:42 Carisoprodol (Soma) 350 mg Q6H PRN ORAL MUSCLE SPASMS 06/16/17 19:00 07/14/17 18:59 06/17/17 21:35 Carvedilol (Coreg) 25 mg EVERY 12 HOURS ORAL 06/16/17 21:00 07/04/17 11:29 06/20/17 08:43 Chlorhexidine Gluconate (Mireille-Hex 2%) 1 applic DAILY@2000 TOPIC 06/16/17 20:00 07/05/17 19:59 06/19/17 21:12 Clonidine HCl (Catapres Tab) 0.1 mg Q4H PRN ORAL bp over 160 syst 06/16/17 19:00 07/03/17 18:59 Dextrose 1,000 ml @ 50 mls/hr Q20H IV 06/16/17 19:00 07/14/17 18:59 06/19/17 21:12 Dextrose (Dextrose 50%) STAT PRN IV Hypoglycemia 06/16/17 19:00 07/14/17 18:59 Docusate Sodium (Colace) 100 mg THREE TIMES A DAY ORAL 06/17/17 20:00 07/03/17 19:59 06/20/17 08:43 Ethambutol HCl (Myambutol) 1,000 mg 3XW ORAL 06/18/17 09:00 07/18/17 23:59 06/20/17 08:44 Levofloxacin (Levaquin) 750 mg EVERY OTHER DAY@2000 ORAL 06/17/17 20:00 06/24/17 19:59 06/19/17 21:13 Lisinopril (Prinivil) 20 mg BID ORAL 06/17/17 09:00 07/04/17 08:59 06/20/17 08:43 Meperidine HCl (Demerol) 25 mg ONCE PRN IM RIGOR AFTER AMPHO DOSE 06/16/17 19:00 06/23/17 18:59 Metronidazole (Flagyl) 500 mg Q8HR ORAL 06/17/17 22:00 06/24/17 21:59 06/20/17 16:44 Morphine Sulfate (Morphine Sulfate) 2 mg Q4H PRN IVP Moderate Pain (Pain Scale 4-6) 06/17/17 14:45 06/24/17 14:44 06/20/17 16:44 Nitroglycerin (Ntg) 0.4 mg Q5M PRN SL Prn Chest Pain 06/16/17 18:15 07/04/17 09:14 Nitroglycerin (Ntg) 1 patch Q24H TDERMAL 06/17/17 11:30 07/04/17 11:29 06/19/17 19:09 Ondansetron HCl (Zofran) 4 mg Q6H PRN IVP Nausea & Vomiting 06/16/17 18:30 07/14/17 18:29 Pantoprazole (Protonix) 40 mg ACBREAKFAST ORAL 06/17/17 06:30 07/15/17 06:29 06/20/17 06:02 Polyethylene Glycol (Miralax) 17 gm DAILYPRN PRN ORAL Constipation 06/16/17 18:30 07/14/17 18:29 Promethazine HCl/ Codeine (Phenergan with Codeine) 5 ml Q4H PRN ORAL For Cough 06/16/17 18:30 07/05/17 18:29 Sevelamer Carbonate (Renvela) 2,400 mg THREE TIMES A DAY ORAL 06/16/17 18:45 07/16/17 18:44 06/20/17 08:42 Allergies: Coded Allergies: No Known Allergies (Unverified , 10/24/15) ROS Limited/Unobtainable: No Constitutional: Reports: no symptoms HEENT: Reports: no symptoms Cardiovascular: Reports: no symptoms Respiratory: Reports: shortness of breath Gastrointestinal/Abdominal: Reports: no symptoms Genitourinary: Reports: no symptoms Neurologic/Psychiatric: Reports: no symptoms Subjective 57 YO M admitted with chest pain and shortness of breath. Now pneumonia and candelaria heart failure. Tolerating nasal canula. Cover for Int Misbah-Dr Weinstein. Objective Last Vital Signs Date Time Temp Pulse Resp B/P (MAP) Pulse Ox O2 Delivery O2 Flow Rate FiO2 06/20/17 16:08 97.9 67 20 113/75 95 97.9 06/20/17 13:25 Nasal Cannula 2.0 06/20/17 06:53 36 Laboratory Tests Test 06/20/17 10:00 White Blood Count 5.5 K/UL (4.8-10.8) Red Blood Count 2.42 M/UL (4.70-6.10) L Hemoglobin 7.0 G/DL (14.2-18.0) L Hematocrit 22.5 % (42.0-52.0) L Mean Corpuscular Volume 93 FL (80-99) Mean Corpuscular Hemoglobin 29.2 PG (27.0-31.0) Mean Corpuscular Hemoglobin Concent 31.3 G/DL (32.0-36.0) L Red Cell Distribution Width 18.3 % (11.6-14.8) H Platelet Count 119 K/UL (150-450) L Mean Platelet Volume 7.1 FL (6.5-10.1) Neutrophils (%) (Auto) % (45.0-75.0) Lymphocytes (%) (Auto) % (20.0-45.0) Monocytes (%) (Auto) % (1.0-10.0) Eosinophils (%) (Auto) % (0.0-3.0) Basophils (%) (Auto) % (0.0-2.0) Differential Total Cells Counted 100 Neutrophils % (Manual) 55 % (45-75) Lymphocytes % (Manual) 22 % (20-45) Monocytes % (Manual) 21 % (1-10) H Eosinophils % (Manual) 0 % (0-3) Basophils % (Manual) 0 % (0-2) Band Neutrophils 2 % (0-8) Platelet Estimate Decreased L Platelet Morphology Normal Hypochromasia 1+ Anisocytosis 1+ Sodium Level 135 MMOL/L (136-145) L Potassium Level 4.2 MMOL/L (3.5-5.1) Chloride Level 94 MMOL/L (98-107) L Carbon Dioxide Level 34 MMOL/L (21-32) H Anion Gap 7 mmol/L (5-15) Blood Urea Nitrogen 46 mg/dL (7-18) H Creatinine 11.0 MG/DL (0.55-1.30) H Estimat Glomerular Filtration Rate 5.8 mL/min (>60) Glucose Level 75 MG/DL (74-106) Calcium Level 8.4 MG/DL (8.5-10.1) L Phosphorus Level 4.9 MG/DL (2.5-4.9) Magnesium Level 1.9 MG/DL (1.8-2.4) Total Bilirubin 1.0 MG/DL (0.2-1.0) Aspartate Amino Transf (AST/SGOT) 17 U/L (15-37) Alanine Aminotransferase (ALT/SGPT) 79 U/L (12-78) H Alkaline Phosphatase 160 U/L (46-116) H Total Protein 6.9 G/DL (6.4-8.2) Albumin 2.2 G/DL (3.4-5.0) L Globulin 4.7 g/dL Albumin/Globulin Ratio 0.5 (1.0-2.7) L Microbiology Date/Time Source Procedure Growth Status 06/18/17 17:00 Sputum Gram Stain - Final Resulted 06/18/17 17:00 Sputum Culture - Preliminary Gram Negative Bacillus 1 Resulted Intake and Output 06/19/17 06/20/17 19:00 07:00 Intake Total 650 ml 1160 ml Output Total 0 ml Balance 650 ml 1160 ml Intake Oral 360 ml IV Total 350 ml 800 ml Other 300 ml Stool Total 0 ml Objective General Appearance: WD/WN, alert, moderate distress EENT: PERRL/EOMI, normal ENT inspection Neck: non-tender, normal alignment, supple, normal inspection Cardiovascular: normal peripheral pulses, normal rate, regular rhythm, no gallop/murmur, no JVD Respiratory/Chest: Nasal canula; respiratory distress, crackles/rales, rhonchi - bilaterally, expiratory wheezing Abdomen: normal bowel sounds, non tender, soft, no organomegaly, no mass Extremities: normal range of motion Neurologic: dance critic 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 Currently on nasal canula. See pulmonay note. (2) Pleuritic chest pain (3) Hemoptysis Assessment & Plan: Due to pneumonia (4) Pneumonia Assessment & Plan: RUL and cavitary. Concerning for TB. Await AFB cultures- see ID consult. Continue vanco and ethambutol per ID (5) Shortness of breath (6) ESRD (end stage renal disease) on dialysis Assessment & Plan: See nephrology note. Hemodialysis 06/14/17 per nephrology (7) Hyperkalemia Assessment & Plan: Due to renal failure. Hemodialysis 06/12/17 per nephrology (8) COPD (chronic obstructive pulmonary disease) (9) HTN (hypertension) Assessment & Plan: Continue coreg and lisinopril. (10) CHF (congestive heart failure) (11) Elevated troponin Assessment & Plan: ?due to renal failure? See cardiology note. (12) Intractable abdominal pain Assessment & Plan: See surgery note. Await CT abdomen Status: not improved ZOEY PIRES Jun 20, 2017 17:05
--- NOTE | 2017-06-20 17:59 | General Progress Note ---
Assessment/Plan Assessment/Plan Assessment - Anemia - OB (+) Stool - R/O TB - ESRD/HD - DM - HTN - COPD - gallstones - RUQ TTP and elevated LFT - abnormal GB ultrasound - Hepatitis C (+) Recommendations - PO as tolerated - monitor LFT - consider HIDA - transfuse PRN - Acid blockade - Defer EGD/Colon a this time Subjective Allergies: Coded Allergies: No Known Allergies (Unverified , 10/24/15) Subjective above noted no events overnight denies abd pain tolerating po Objective Last 24 Hour Vital Signs Date Time Temp Pulse Resp B/P (MAP) Pulse Ox O2 Delivery O2 Flow Rate FiO2 06/20/17 17:44 113/75 06/20/17 16:08 97.9 67 20 113/75 95 97.9 06/20/17 13:25 Nasal Cannula 2.0 06/20/17 11:51 97.7 75 20 126/77 95 97.7 06/20/17 08:43 128/76 06/20/17 08:43 78 128/76 06/20/17 07:56 98.0 78 20 128/76 95 98.0 06/20/17 06:53 Nasal Cannula 4.0 36 06/20/17 06:53 96 Nasal Cannula 4.0 36 06/20/17 04:47 97.2 06/20/17 04:17 97.2 06/20/17 04:02 97.2 70 20 119/78 94 97.2 06/20/17 04:02 94 Nasal Cannula 4.0 06/20/17 00:10 96 Nasal Cannula 4.0 06/20/17 00:00 97.9 71 20 140/70 96 97.9 06/19/17 23:39 97.9 06/19/17 21:00 72 100/74 06/19/17 20:35 72 16 Nasal Cannula 4.0 36 06/19/17 20:33 95 Nasal Cannula 4.0 36 06/19/17 20:33 Nasal Cannula 4.0 36 06/19/17 20:00 97.9 110 20 100/74 97 97.9 06/19/17 20:00 97 Nasal Cannula 4.0 06/19/17 19:30 97.9 06/19/17 19:09 123/72 06/19/17 19:00 123/73 Intake and Output 06/19/17 06/20/17 19:00 07:00 Intake Total 650 ml 1160 ml Output Total 0 ml Balance 650 ml 1160 ml Intake Oral 360 ml IV Total 350 ml 800 ml Other 300 ml Stool Total 0 ml Laboratory Tests 06/20/17 10:00: White Blood Count 5.5, Red Blood Count 2.42L, Hemoglobin 7.0L, Hematocrit 22.5L , Mean Corpuscular Volume 93, Mean Corpuscular Hemoglobin 29.2, Mean Corpuscular Hemoglobin Concent 31.3L, Red Cell Distribution Width 18.3H, Platelet Count 119L, Mean Platelet Volume 7.1, Neutrophils (%) (Auto) , Lymphocytes (%) (Auto) , Monocytes (%) (Auto) , Eosinophils (%) (Auto) , Basophils (%) (Auto) , Differential Total Cells Counted 100, Neutrophils % ( Manual) 55, Lymphocytes % (Manual) 22, Monocytes % (Manual) 21H, Eosinophils % ( Manual) 0, Basophils % (Manual) 0, Band Neutrophils 2, Platelet Estimate DecreasedL, Platelet Morphology Normal, Hypochromasia 1+, Anisocytosis 1+, Sodium Level 135L, Potassium Level 4.2, Chloride Level 94L, Carbon Dioxide Level 34H, Anion Gap 7, Blood Urea Nitrogen 46H, Creatinine 11.0H, Estimat Glomerular Filtration Rate 5.8, Glucose Level 75, Calcium Level 8.4L, Phosphorus Level 4.9, Magnesium Level 1.9, Total Bilirubin 1.0, Aspartate Amino Transf (AST/SGOT) 17, Alanine Aminotransferase (ALT/SGPT) 79H, Alkaline Phosphatase 160H, Total Protein 6.9, Albumin 2.2L, Globulin 4.7, Albumin/ Globulin Ratio 0.5L Height (Feet): 5 Height (Inches): 7.00 Weight (Pounds): 224 Objective WDWN AA Man NCAT supple CTA RRR Soft mildly distended, (+) improved RUQ TTP No edema PERCY JOYNER Jun 20, 2017 17:59
[2017-06-20] MEDS: Dyna-Hex 2% Top Sol 2oz TOPIC SCH (19:54)
[2017-06-20] MEDS: [UNRECOGNIZED DRUG - OTHER] IV SCH (19:55)
[2017-06-20] MEDS: D5W IV SCH (19:55)
[2017-06-20 20:27] VITALS: BP 119/69
[2017-06-20] MEDS: Amikacin 950 MG in NS 110 ML IV SCH (22:28)
[2017-06-21 00:01] VITALS: BP 122/71
[2017-06-21] MEDS: Morphine Sulfate 2mg/ml Inj IVP PRN ×6 (02:04→22:26)
[2017-06-21 04:00] VITALS: BP 110/71
[2017-06-21] MEDS: metroNIDAZOLE 500mg tab ORAL SCH ×3 (05:58→22:22)
[2017-06-21 07:27] LABS: HEMATOCRIT 22.4 % (42.0-52.0); HEMOGLOBIN 7.3 G/DL (14.2-18.0); MEAN CORPUSCULAR VOLUME 94 FL (80-99); PLATELET COUNT 123 K/UL (150-450); RED BLOOD COUNT 2.39 M/UL (4.70-6.10); RED CELL DISTRIBUTION WIDTH 16.9 % (11.6-14.8); WHITE BLOOD COUNT 5.6 K/UL (4.8-10.8)
[2017-06-21 07:30] VITALS: BP 121/76
[2017-06-21 07:53] LABS: ANION GAP 7 mmol/L (5-15); BLOOD UREA NITROGEN 43 mg/dL (7-18); CALCIUM 8.2 MG/DL (8.5-10.1); CARBON DIOXIDE 36 MMOL/L (21-32); CHLORIDE 96 MMOL/L (98-107); CREATININE 10.2 MG/DL (0.55-1.30); POTASSIUM 4.4 MMOL/L (3.5-5.1); SODIUM 139 MMOL/L (136-145)
[2017-06-21] MEDS: Docusate 100mg cap ORAL SCH ×3 (09:00→18:14)
[2017-06-21] MEDS: Lisinopril 20mg tab ORAL SCH ×2 (09:00→18:14)
[2017-06-21] MEDS: Carvedilol 25mg Tab ORAL SCH ×2 (09:01→20:20)
--- NOTE | 2017-06-21 11:11 | Diagnostic Imaging Report ---
Indication: Dyspnea Technique: XRAY Chest 1v Comparison: 06/16/2017 Findings: Stable cardiomegaly. AICD and central line unchanged in position. There is persistent interstitial opacification/edema and patchy bilateral airspace opacities. Cavitary lesion in the right lung is slightly decreased in size, from approximately 3.6 cm maximal transverse diameter approximately 2.6 cm maximal transverse diameter. There is persistent blunting of the right costophrenic sulcus. No appreciable pneumothorax. Osseous structures are stable. Impression: Persistent but slightly decreased size of known right lung cavitary lesion. Persistent extensive interstitial and bilateral airspace opacities.
[2017-06-21] MEDS ORDERED: NS 275ml ONE ×2 (11:18→15:09)
[2017-06-21] MEDS ORDERED: Tubing Blood Filter IV ONE ×2 (11:18→15:09)
--- NOTE | 2017-06-21 11:30 | General Progress Note ---
Assessment/Plan Assessment/Plan #. Anemia secondary to chronic disease. --> S/P PRBC. No acute events. --> S/P abd CAT scan revealing evidence of hepatic cirrhosis. --> Hepatosplenomegaly. Ascites. There is also evidence of generalized anasarca , with pleural fluid and generalized subcutaneous edema --> Continue to closely monitor and trend cbc daily. --> Anemia workup completed and reviewed. Iron 42, TIBC 180, Ferritin 593, B12 876. --> Ferritin is >500, hgb goal is >7 --> Anemia w/u has been reviewed --> ++Occult blood. Consider GI Services and Recs. --> Noted some abd pain, ongoing pain control. Pain improved. #. Anemia of kidney disease --> HD as needed per nephrology team --> Monitor closely. #. Generalized body ache related to fluid overload. #. End-stage renal disease, on hemodialysis as needed --> Monitor. S/P HD. #. Tachycardia, to be seen by Cardiology Service, isolated T-wave and ST- segment depression in V6. --> HR has been ~80-90bpm --> S/P Chest CT -- Evidence of worsening CHF/interstitial edema. --> Monitor for improvement. #. Elevated BNP, potentially related to underlying CKD. Subjective Date patient seen: Jun 20, 2017 Constitutional: Denies: no symptoms, chills, diaphoresis, fever, malaise, weakness, other HEENT: Denies: no symptoms, eye pain, blurred vision, tearing, double vision, ear pain, ear discharge, nose pain, nose congestion, throat pain, throat swelling, mouth pain, mouth swelling, other Cardiovascular: Denies: no symptoms, chest pain, edema, irregular heart rate, lightheadedness, palpitations, syncope, other Respiratory: Denies: no symptoms, cough, orthopnea, shortness of breath, SOB with excertion, SOB at rest, sputum, stridor, wheezing, other Gastrointestinal/Abdominal: Denies: no symptoms, abdomen distended, abdominal pain, black stools, tarry stools, blood in stool, constipated, diarrhea, difficulty swallowing, nausea, poor appetite, poor fluid intake, rectal bleeding , vomiting, other Genitourinary: Denies: no symptoms, burning, discharge, frequency, flank pain, hematuria, incontinence, pain, urgency, other Neurologic/Psychiatric: Denies: no symptoms, anxiety, depressed, emotional problems, headache, numbness, paresthesia, pre-existing deficit, seizure, tingling, tremors, weakness, other Hematologic/Lymphatic: Reports: anemia Allergies: Coded Allergies: No Known Allergies (Unverified , 10/24/15) Subjective S/P blood transfusion. Abd pain improved today. Objective Last 24 Hour Vital Signs Date Time Temp Pulse Resp B/P (MAP) Pulse Ox O2 Delivery O2 Flow Rate FiO2 06/21/17 10:37 97.8 06/21/17 10:07 97.8 06/21/17 09:59 97.8 06/21/17 09:01 78 121/76 06/21/17 09:00 121/76 06/21/17 09:00 97.8 06/21/17 07:30 97.8 78 20 121/76 96 97.8 06/21/17 06:52 Nasal Cannula 3.0 32 06/21/17 06:52 92 Nasal Cannula 3.0 32 06/21/17 05:59 97.8 06/21/17 05:14 75 26 98 Facial 40 06/21/17 04:00 96 Nasal Cannula 4.0 06/21/17 04:00 97.8 71 21 110/71 96 97.8 06/21/17 03:53 82 29 97 Facial 40 06/21/17 02:04 96.6 06/21/17 01:05 96.6 06/21/17 00:38 78 29 97 Facial 40 06/21/17 00:07 98 Nasal Cannula 4.0 06/21/17 00:01 96.6 68 20 122/71 98 Nasal Cannula 96.6 06/20/17 23:55 97.4 06/20/17 21:18 97.4 06/20/17 20:27 97.4 62 19 119/69 96 Nasal Cannula 97.4 06/20/17 20:27 96 Nasal Cannula 4.0 06/20/17 19:56 62 119/69 06/20/17 19:20 94 Nasal Cannula 4.0 36 06/20/17 19:20 Nasal Cannula 4.0 36 06/20/17 17:44 113/75 06/20/17 16:08 97.9 67 20 113/75 95 97.9 06/20/17 13:25 Nasal Cannula 2.0 06/20/17 11:51 97.7 75 20 126/77 95 97.7 Intake and Output 06/20/17 06/21/17 19:00 07:00 Intake Total 1460 ml 1113.8 ml Balance 1460 ml 1113.8 ml Intake Oral 960 ml IV Total 500 ml 863.8 ml Blood Product 250 ml # Voids 2 Laboratory Tests 06/20/17 20:00: Amikacin Level Trough 21.4H 06/21/17 06:00: White Blood Count 5.6, Red Blood Count 2.39L, Hemoglobin 7.3L, Hematocrit 22.4L , Mean Corpuscular Volume 94, Mean Corpuscular Hemoglobin 30.7, Mean Corpuscular Hemoglobin Concent 32.8, Red Cell Distribution Width 16.9H, Platelet Count 123L, Mean Platelet Volume 7.1, Neutrophils (%) (Auto) , Lymphocytes (%) (Auto) , Monocytes (%) (Auto) , Eosinophils (%) (Auto) , Basophils (%) (Auto) , Differential Total Cells Counted 100, Neutrophils % ( Manual) 58, Lymphocytes % (Manual) 25, Monocytes % (Manual) 15H, Eosinophils % ( Manual) 2, Basophils % (Manual) 0, Band Neutrophils 0, Platelet Estimate DecreasedL, Platelet Morphology Normal, Hypochromasia 1+, Anisocytosis 1+, Sodium Level 139, Potassium Level 4.4, Chloride Level 96L, Carbon Dioxide Level 36H, Anion Gap 7, Blood Urea Nitrogen 43H, Creatinine 10.2H, Estimat Glomerular Filtration Rate 6.4, Glucose Level 89, Calcium Level 8.2L Height (Feet): 5 Height (Inches): 7.00 Weight (Pounds): 224 General Appearance: no apparent distress Respiratory/Chest: decreased breath sounds Abdomen: soft Irving Parker MD Jun 21, 2017 11:30
[2017-06-21 11:51] VITALS: BP 128/80
--- NOTE | 2017-06-21 12:13 | General Surgery Progress Note ---
General Surgery-Progress Note Subjective Symptoms: improved, pain absent Additional Comments no acute events Objective Last 24 Hour Vital Signs Date Time Temp Pulse Resp B/P (MAP) Pulse Ox O2 Delivery O2 Flow Rate FiO2 06/21/17 11:51 97.9 71 20 128/80 93 97.9 06/21/17 10:37 97.8 06/21/17 10:07 97.8 06/21/17 09:59 97.8 06/21/17 09:01 78 121/76 06/21/17 09:00 121/76 06/21/17 09:00 97.8 06/21/17 07:30 97.8 78 20 121/76 96 97.8 06/21/17 06:52 Nasal Cannula 3.0 32 06/21/17 06:52 92 Nasal Cannula 3.0 32 06/21/17 05:59 97.8 06/21/17 05:14 75 26 98 Facial 40 06/21/17 04:00 96 Nasal Cannula 4.0 06/21/17 04:00 97.8 71 21 110/71 96 97.8 06/21/17 03:53 82 29 97 Facial 40 06/21/17 02:04 96.6 06/21/17 01:05 96.6 06/21/17 00:38 78 29 97 Facial 40 06/21/17 00:07 98 Nasal Cannula 4.0 06/21/17 00:01 96.6 68 20 122/71 98 Nasal Cannula 96.6 06/20/17 23:55 97.4 06/20/17 21:18 97.4 06/20/17 20:27 97.4 62 19 119/69 96 Nasal Cannula 97.4 06/20/17 20:27 96 Nasal Cannula 4.0 06/20/17 19:56 62 119/69 06/20/17 19:20 94 Nasal Cannula 4.0 36 06/20/17 19:20 Nasal Cannula 4.0 36 06/20/17 17:44 113/75 06/20/17 16:08 97.9 67 20 113/75 95 97.9 06/20/17 13:25 Nasal Cannula 2.0 I&O Intake and Output 06/20/17 06/21/17 19:00 07:00 Intake Total 1460 ml 1113.8 ml Balance 1460 ml 1113.8 ml Intake Oral 960 ml IV Total 500 ml 863.8 ml Blood Product 250 ml # Voids 2 Drains: none Cardiovascular: RSR Respiratory: clear Abdomen: soft, distended, non-tender, present bowel sounds Extremities: no cyanosis Laboratory Tests Test 06/20/17 20:00 06/21/17 06:00 Amikacin Level Trough 21.4 MG/L (4.0-8.0) H White Blood Count 5.6 K/UL (4.8-10.8) Red Blood Count 2.39 M/UL (4.70-6.10) L Hemoglobin 7.3 G/DL (14.2-18.0) L Hematocrit 22.4 % (42.0-52.0) L Mean Corpuscular Volume 94 FL (80-99) Mean Corpuscular Hemoglobin 30.7 PG (27.0-31.0) Mean Corpuscular Hemoglobin Concent 32.8 G/DL (32.0-36.0) Red Cell Distribution Width 16.9 % (11.6-14.8) H Platelet Count 123 K/UL (150-450) L Mean Platelet Volume 7.1 FL (6.5-10.1) Neutrophils (%) (Auto) % (45.0-75.0) Lymphocytes (%) (Auto) % (20.0-45.0) Monocytes (%) (Auto) % (1.0-10.0) Eosinophils (%) (Auto) % (0.0-3.0) Basophils (%) (Auto) % (0.0-2.0) Differential Total Cells Counted 100 Neutrophils % (Manual) 58 % (45-75) Lymphocytes % (Manual) 25 % (20-45) Monocytes % (Manual) 15 % (1-10) H Eosinophils % (Manual) 2 % (0-3) Basophils % (Manual) 0 % (0-2) Band Neutrophils 0 % (0-8) Platelet Estimate Decreased L Platelet Morphology Normal Hypochromasia 1+ Anisocytosis 1+ Sodium Level 139 MMOL/L (136-145) Potassium Level 4.4 MMOL/L (3.5-5.1) Chloride Level 96 MMOL/L (98-107) L Carbon Dioxide Level 36 MMOL/L (21-32) H Anion Gap 7 mmol/L (5-15) Blood Urea Nitrogen 43 mg/dL (7-18) H Creatinine 10.2 MG/DL (0.55-1.30) H Estimat Glomerular Filtration Rate 6.4 mL/min (>60) Glucose Level 89 MG/DL (74-106) Calcium Level 8.2 MG/DL (8.5-10.1) L Plan Problems: (1) Intractable abdominal pain Assessment & Plan: 57M with abdominal pain. elevated lft's and ultrasound reviewed. has liver cirrhosis, ascites, and gallbladder findings on ultrasound likely secondary to intrinsic liver disease. on exam his abdominal pain is fairly superficial and around this right abd upper and lower and right flank. he has edema and thickening of the right subcutaneous tissues as compared to the left. possible abscess vs cellulitis? Ultrasound findings: Impression: Ascites Evidence of hepatic cirrhosis Cholelithiasis. There is gallbladder wall thickening, likely related to hemodynamic abnormalities related to the hepatic abnormality, particularly as this is evident on the prior exam of 2 years earlier. However, acute cholecystitis cannot be completely ruled out, and hepatobiliary scanning is recommended if there is high clinical suspicion CT findings: Impression: Evidence of hepatic cirrhosis. Hepatosplenomegaly Ascites. There is also evidence of generalized anasarca, with pleural fluid and generalized subcutaneous edema Cholelithiasis, also previously reported Possible diverticulosis. No evidence of diverticulitis Nonvisualized appendix. No evidence of appendicitis Left renal cysts. Subcentimeter right lobe hepatic and bilateral renal lesions, too small to characterize, most likely benign simple cysts. No further follow-up necessary Bilateral pleural effusions and parenchymal consolidation. LFT's improving. but still no clear explanation as to acute elevation in LFT' s. Right sided abdominal pain improved CT A/P reviewed. Hep C + -given exam, radiological findings, history, unlikely to be acute cholecystitis. exam with discomfort in right upper/lower/flank region and improving ultrasound findings similar to that of two years ago. -no acute surgical intervention recommended at this time. -cont Ever Augustin Jun 21, 2017 12:13
[2017-06-21] MEDS: Nitroglycerin Patch 0.4mg TDERMAL SCH (12:22)
--- NOTE | 2017-06-21 12:36 | Nephrology Progress Note ---
Assessment/Plan Problem List: (1) ESRD (end stage renal disease) on dialysis (2) Shortness of breath (3) Anemia Assessment worsenning Anemia ESRD , missed HD , admitted with high K and pulmonary edema Acute respiratory distress due to volume overload elevated troponin r/o ACS h/o COPD ? exacerbation HTN urgency Cardiomyopathy L AICD anemia of chronic kidney disease Hx of CVA Plan Plan: Low H&H - consider transfusion HD next 06/23 Transfused Phos binders BP meds adjustment Optimize cardiac status per orders Subjective ROS Limited/Unobtainable: No Constitutional: Reports: malaise Objective Objective Last 24 Hour Vital Signs Date Time Temp Pulse Resp B/P (MAP) Pulse Ox O2 Delivery O2 Flow Rate FiO2 06/21/17 12:22 128/80 06/21/17 11:51 97.9 71 20 128/80 93 97.9 06/21/17 10:37 97.8 06/21/17 10:07 97.8 06/21/17 09:59 97.8 06/21/17 09:01 78 121/76 06/21/17 09:00 121/76 06/21/17 09:00 97.8 06/21/17 07:30 97.8 78 20 121/76 96 97.8 06/21/17 06:52 Nasal Cannula 3.0 32 06/21/17 06:52 92 Nasal Cannula 3.0 32 06/21/17 05:59 97.8 06/21/17 05:14 75 26 98 Facial 40 06/21/17 04:00 96 Nasal Cannula 4.0 06/21/17 04:00 97.8 71 21 110/71 96 97.8 06/21/17 03:53 82 29 97 Facial 40 06/21/17 02:04 96.6 06/21/17 01:05 96.6 06/21/17 00:38 78 29 97 Facial 40 06/21/17 00:07 98 Nasal Cannula 4.0 06/21/17 00:01 96.6 68 20 122/71 98 Nasal Cannula 96.6 06/20/17 23:55 97.4 06/20/17 21:18 97.4 06/20/17 20:27 97.4 62 19 119/69 96 Nasal Cannula 97.4 06/20/17 20:27 96 Nasal Cannula 4.0 06/20/17 19:56 62 119/69 06/20/17 19:20 94 Nasal Cannula 4.0 36 06/20/17 19:20 Nasal Cannula 4.0 36 06/20/17 17:44 113/75 06/20/17 16:08 97.9 67 20 113/75 95 97.9 06/20/17 13:25 Nasal Cannula 2.0 Intake and Output 06/20/17 06/21/17 19:00 07:00 Intake Total 1460 ml 1113.8 ml Balance 1460 ml 1113.8 ml Intake Oral 960 ml IV Total 500 ml 863.8 ml Blood Product 250 ml # Voids 2 Laboratory Tests 06/20/17 20:00: Amikacin Level Trough 21.4H 06/21/17 06:00: White Blood Count 5.6, Red Blood Count 2.39L, Hemoglobin 7.3L, Hematocrit 22.4L , Mean Corpuscular Volume 94, Mean Corpuscular Hemoglobin 30.7, Mean Corpuscular Hemoglobin Concent 32.8, Red Cell Distribution Width 16.9H, Platelet Count 123L, Mean Platelet Volume 7.1, Neutrophils (%) (Auto) , Lymphocytes (%) (Auto) , Monocytes (%) (Auto) , Eosinophils (%) (Auto) , Basophils (%) (Auto) , Differential Total Cells Counted 100, Neutrophils % ( Manual) 58, Lymphocytes % (Manual) 25, Monocytes % (Manual) 15H, Eosinophils % ( Manual) 2, Basophils % (Manual) 0, Band Neutrophils 0, Platelet Estimate DecreasedL, Platelet Morphology Normal, Hypochromasia 1+, Anisocytosis 1+, Sodium Level 139, Potassium Level 4.4, Chloride Level 96L, Carbon Dioxide Level 36H, Anion Gap 7, Blood Urea Nitrogen 43H, Creatinine 10.2H, Estimat Glomerular Filtration Rate 6.4, Glucose Level 89, Calcium Level 8.2L Height (Feet): 5 Height (Inches): 7.00 Weight (Pounds): 224 General Appearance: no apparent distress Objective no change LIAM MONTELONGO 17, 2018 12:36
[2017-06-21 16:28] VITALS: BP 125/76
--- NOTE | 2017-06-21 16:46 | Pulmonology Progress Note ---
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 Sputum shows only charli hold heparin for low PLT prbc prn on anti TB meds all notes reviewed f/u wbc and cultures Subjective ROS Limited/Unobtainable: No Constitutional: Reports: no symptoms HEENT: Repors: no symptoms Respiratory: Reports: no symptoms Allergies: Coded Allergies: No Known Allergies (Unverified , 10/24/15) Objective Last 24 Hour Vital Signs Date Time Temp Pulse Resp B/P (MAP) Pulse Ox O2 Delivery O2 Flow Rate FiO2 06/21/17 16:28 98.4 77 21 125/76 94 98.4 06/21/17 14:37 97.9 06/21/17 14:07 97.9 06/21/17 12:22 128/80 06/21/17 11:51 97.9 71 20 128/80 93 97.9 06/21/17 10:07 97.8 06/21/17 09:59 97.8 06/21/17 09:01 78 121/76 06/21/17 09:00 121/76 06/21/17 09:00 97.8 06/21/17 07:30 97.8 78 20 121/76 96 97.8 06/21/17 06:52 Nasal Cannula 3.0 32 06/21/17 06:52 92 Nasal Cannula 3.0 32 06/21/17 05:59 97.8 06/21/17 05:14 75 26 98 Facial 40 06/21/17 04:00 96 Nasal Cannula 4.0 06/21/17 04:00 97.8 71 21 110/71 96 97.8 06/21/17 03:53 82 29 97 Facial 40 06/21/17 02:04 96.6 06/21/17 01:05 96.6 06/21/17 00:38 78 29 97 Facial 40 06/21/17 00:07 98 Nasal Cannula 4.0 06/21/17 00:01 96.6 68 20 122/71 98 Nasal Cannula 96.6 06/20/17 23:55 97.4 06/20/17 21:18 97.4 06/20/17 20:27 97.4 62 19 119/69 96 Nasal Cannula 97.4 06/20/17 20:27 96 Nasal Cannula 4.0 06/20/17 19:56 62 119/69 06/20/17 19:20 94 Nasal Cannula 4.0 36 06/20/17 19:20 Nasal Cannula 4.0 36 06/20/17 17:44 113/75 Intake and Output 06/20/17 06/21/17 18:59 06:59 Intake Total 1510 ml 1113.8 ml Balance 1510 ml 1113.8 ml Intake Oral 960 ml IV Total 550 ml 863.8 ml Blood Product 250 ml # Voids 2 Objective General Appearance: WD/WN HEENT: normocephalic, atraumatic, anicteric Respiratory/Chest: loud rhonchi Cardiovascular: normal peripheral pulses, normal rate, regular rhythm Abdomen: normal bowel sounds, soft, non tender, no organomegaly Genitourinary: normal external genitalia Extremities: no cyanosis Skin: no rash, no lesions 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, no motor/sensory deficits Lymphatic: no neck adenopathy, no groin adenopathy Microbiology Date/Time Source Procedure Growth Status 06/18/17 17:00 Sputum Gram Stain - Final Resulted 06/18/17 17:00 Sputum Culture - Preliminary Providencia Stuartii Gram Negative Vernon Resulted Laboratory Tests 06/20/17 20:00: Amikacin Level Trough 21.4H 06/21/17 06:00: White Blood Count 5.6, Red Blood Count 2.39L, Hemoglobin 7.3L, Hematocrit 22.4L , Mean Corpuscular Volume 94, Mean Corpuscular Hemoglobin 30.7, Mean Corpuscular Hemoglobin Concent 32.8, Red Cell Distribution Width 16.9H, Platelet Count 123L, Mean Platelet Volume 7.1, Neutrophils (%) (Auto) , Lymphocytes (%) (Auto) , Monocytes (%) (Auto) , Eosinophils (%) (Auto) , Basophils (%) (Auto) , Differential Total Cells Counted 100, Neutrophils % ( Manual) 58, Lymphocytes % (Manual) 25, Monocytes % (Manual) 15H, Eosinophils % ( Manual) 2, Basophils % (Manual) 0, Band Neutrophils 0, Platelet Estimate DecreasedL, Platelet Morphology Normal, Hypochromasia 1+, Anisocytosis 1+, Sodium Level 139, Potassium Level 4.4, Chloride Level 96L, Carbon Dioxide Level 36H, Anion Gap 7, Blood Urea Nitrogen 43H, Creatinine 10.2H, Estimat Glomerular Filtration Rate 6.4, Glucose Level 89, Calcium Level 8.2L Current Medications Medications (Trade) Dose Ordered Sig/Jose Route PRN Reason Start Time Stop Time Status Last Admin Dose Admin Acetaminophen (Tylenol) 650 mg Q4H PRN RECTAL Mild Pain (Pain Scale 1-3) 06/16/17 19:00 07/09/17 18:59 Alprazolam (Xanax) 2 mg DAILYPRN PRN ORAL Agitation 06/16/17 18:45 06/23/17 18:44 06/20/17 12:48 Amikacin Sulfate 950 mg/Sodium Chloride 113.8 ml @ 227.6 mls/ hr FRI-FRI-FRI IV 06/18/17 21:00 06/25/17 23:59 06/20/17 22:28 Amphotericin B 50 mg/Dextrose 500 ml @ 100 mls/hr Q24H IV 06/16/17 20:00 06/21/17 19:59 06/20/17 19:55 Carisoprodol (Soma) 350 mg BID ORAL 06/17/17 20:00 07/15/17 19:59 06/21/17 09:00 Carisoprodol (Soma) 350 mg Q6H PRN ORAL MUSCLE SPASMS 06/16/17 19:00 07/14/17 18:59 06/20/17 23:55 Carvedilol (Coreg) 25 mg EVERY 12 HOURS ORAL 06/16/17 21:00 07/04/17 11:29 06/21/17 09:01 Chlorhexidine Gluconate (Mireille-Hex 2%) 1 applic DAILY@2000 TOPIC 06/16/17 20:00 07/05/17 19:59 06/20/17 19:54 Clonidine HCl (Catapres Tab) 0.1 mg Q4H PRN ORAL bp over 160 syst 06/16/17 19:00 07/03/17 18:59 Dextrose 1,000 ml @ 50 mls/hr Q20H IV 06/16/17 19:00 07/14/17 18:59 06/20/17 23:33 Dextrose (Dextrose 50%) STAT PRN IV Hypoglycemia 06/16/17 19:00 07/14/17 18:59 Docusate Sodium (Colace) 100 mg THREE TIMES A DAY ORAL 06/17/17 20:00 07/03/17 19:59 06/21/17 12:22 Ethambutol HCl (Myambutol) 1,000 mg 3XW ORAL 06/18/17 09:00 07/18/17 23:59 06/20/17 08:44 Levofloxacin (Levaquin) 750 mg EVERY OTHER DAY@1999 ORAL 06/17/17 20:00 06/24/17 19:59 06/19/17 21:13 Lisinopril (Prinivil) 20 mg BID ORAL 06/17/17 09:00 07/04/17 08:59 06/21/17 09:00 Meperidine HCl (Demerol) 25 mg ONCE PRN IM RIGOR AFTER AMPHO DOSE 06/16/17 19:00 06/23/17 18:59 Metronidazole (Flagyl) 500 mg Q8HR ORAL 06/17/17 22:00 06/24/17 21:59 06/21/17 14:03 Morphine Sulfate (Morphine Sulfate) 2 mg Q4H PRN IVP Moderate Pain (Pain Scale 4-6) 06/17/17 14:45 06/24/17 14:44 06/21/17 14:07 Nitroglycerin (Ntg) 0.4 mg Q5M PRN SL Prn Chest Pain 06/16/17 18:15 07/04/17 09:14 Nitroglycerin (Ntg) 1 patch Q24H TDERMAL 06/17/17 11:30 07/04/17 11:29 06/21/17 12:22 Ondansetron HCl (Zofran) 4 mg Q6H PRN IVP Nausea & Vomiting 06/16/17 18:30 07/14/17 18:29 Pantoprazole (Protonix) 40 mg ACBREAKFAST ORAL 06/17/17 06:30 07/15/17 06:29 06/21/17 05:58 Polyethylene Glycol (Miralax) 17 gm DAILYPRN PRN ORAL Constipation 06/16/17 18:30 07/14/17 18:29 Promethazine HCl/ Codeine (Phenergan with Codeine) 5 ml Q4H PRN ORAL For Cough 06/16/17 18:30 07/05/17 18:29 Sevelamer Carbonate (Renvela) 2,400 mg THREE TIMES A DAY ORAL 06/16/17 18:45 07/16/17 18:44 06/21/17 12:22 Christine Morgan MD Jun 21, 2017 16:46
--- NOTE | 2017-06-21 17:24 | Internal Med Progress Note ---
Subjective Date of Service: Jun 21, 2017 Physician Name ElliZoey Attending Physician Chaitanya Weinstein MD Current Medications Medications (Trade) Dose Ordered Sig/Jose Route PRN Reason Start Time Stop Time Status Last Admin Dose Admin Acetaminophen (Tylenol) 650 mg Q4H PRN RECTAL Mild Pain (Pain Scale 1-3) 06/16/17 19:00 07/09/17 18:59 Alprazolam (Xanax) 2 mg DAILYPRN PRN ORAL Agitation 06/16/17 18:45 06/23/17 18:44 06/20/17 12:48 Amikacin Sulfate 950 mg/Sodium Chloride 113.8 ml @ 227.6 mls/ hr FRI-FRI-FRI IV 06/18/17 21:00 06/25/17 23:59 06/20/17 22:28 Amphotericin B 50 mg/Dextrose 500 ml @ 100 mls/hr Q24H IV 06/16/17 20:00 06/21/17 19:59 06/20/17 19:55 Carisoprodol (Soma) 350 mg BID ORAL 06/17/17 20:00 07/15/17 19:59 06/21/17 09:00 Carisoprodol (Soma) 350 mg Q6H PRN ORAL MUSCLE SPASMS 06/16/17 19:00 07/14/17 18:59 06/20/17 23:55 Carvedilol (Coreg) 25 mg EVERY 12 HOURS ORAL 06/16/17 21:00 07/04/17 11:29 06/21/17 09:01 Chlorhexidine Gluconate (Mireille-Hex 2%) 1 applic DAILY@2000 TOPIC 06/16/17 20:00 07/05/17 19:59 06/20/17 19:54 Clonidine HCl (Catapres Tab) 0.1 mg Q4H PRN ORAL bp over 160 syst 06/16/17 19:00 07/03/17 18:59 Dextrose 1,000 ml @ 50 mls/hr Q20H IV 06/16/17 19:00 07/14/17 18:59 06/20/17 23:33 Dextrose (Dextrose 50%) STAT PRN IV Hypoglycemia 06/16/17 19:00 07/14/17 18:59 Docusate Sodium (Colace) 100 mg THREE TIMES A DAY ORAL 06/17/17 20:00 07/03/17 19:59 06/21/17 12:22 Ethambutol HCl (Myambutol) 1,000 mg 3XW ORAL 06/18/17 09:00 07/18/17 23:59 06/20/17 08:44 Levofloxacin (Levaquin) 750 mg EVERY OTHER DAY@2000 ORAL 06/17/17 20:00 06/24/17 19:59 06/19/17 21:13 Lisinopril (Prinivil) 20 mg BID ORAL 06/17/17 09:00 07/04/17 08:59 06/21/17 09:00 Meperidine HCl (Demerol) 25 mg ONCE PRN IM RIGOR AFTER AMPHO DOSE 06/16/17 19:00 06/23/17 18:59 Metronidazole (Flagyl) 500 mg Q8HR ORAL 06/17/17 22:00 06/24/17 21:59 06/21/17 14:03 Morphine Sulfate (Morphine Sulfate) 2 mg Q4H PRN IVP Moderate Pain (Pain Scale 4-6) 06/17/17 14:45 06/24/17 14:44 06/21/17 14:07 Nitroglycerin (Ntg) 0.4 mg Q5M PRN SL Prn Chest Pain 06/16/17 18:15 07/04/17 09:14 Nitroglycerin (Ntg) 1 patch Q24H TDERMAL 06/17/17 11:30 07/04/17 11:29 06/21/17 12:22 Ondansetron HCl (Zofran) 4 mg Q6H PRN IVP Nausea & Vomiting 06/16/17 18:30 07/14/17 18:29 Pantoprazole (Protonix) 40 mg ACBREAKFAST ORAL 06/17/17 06:30 07/15/17 06:29 06/21/17 05:58 Polyethylene Glycol (Miralax) 17 gm DAILYPRN PRN ORAL Constipation 06/16/17 18:30 07/14/17 18:29 Promethazine HCl/ Codeine (Phenergan with Codeine) 5 ml Q4H PRN ORAL For Cough 06/16/17 18:30 07/05/17 18:29 Sevelamer Carbonate (Renvela) 2,400 mg THREE TIMES A DAY ORAL 06/16/17 18:45 07/16/17 18:44 06/21/17 12:22 Allergies: Coded Allergies: No Known Allergies (Unverified , 10/24/15) ROS Limited/Unobtainable: No Constitutional: Reports: no symptoms HEENT: Reports: no symptoms Cardiovascular: Reports: no symptoms Respiratory: Reports: shortness of breath Gastrointestinal/Abdominal: Reports: no symptoms Genitourinary: Reports: no symptoms Neurologic/Psychiatric: Reports: no symptoms Subjective 57 YO M admitted with chest pain and shortness of breath. Now pneumonia and candelaria heart failure. Tolerating nasal canula. Cover for Int Misbah-Dr Weinstein. Objective Last Vital Signs Date Time Temp Pulse Resp B/P (MAP) Pulse Ox O2 Delivery O2 Flow Rate FiO2 06/21/17 16:28 98.4 77 21 125/76 94 98.4 06/21/17 06:52 Nasal Cannula 3.0 32 Laboratory Tests Test 06/20/17 20:00 06/21/17 06:00 Amikacin Level Trough 21.4 MG/L (4.0-8.0) H White Blood Count 5.6 K/UL (4.8-10.8) Red Blood Count 2.39 M/UL (4.70-6.10) L Hemoglobin 7.3 G/DL (14.2-18.0) L Hematocrit 22.4 % (42.0-52.0) L Mean Corpuscular Volume 94 FL (80-99) Mean Corpuscular Hemoglobin 30.7 PG (27.0-31.0) Mean Corpuscular Hemoglobin Concent 32.8 G/DL (32.0-36.0) Red Cell Distribution Width 16.9 % (11.6-14.8) H Platelet Count 123 K/UL (150-450) L Mean Platelet Volume 7.1 FL (6.5-10.1) Neutrophils (%) (Auto) % (45.0-75.0) Lymphocytes (%) (Auto) % (20.0-45.0) Monocytes (%) (Auto) % (1.0-10.0) Eosinophils (%) (Auto) % (0.0-3.0) Basophils (%) (Auto) % (0.0-2.0) Differential Total Cells Counted 100 Neutrophils % (Manual) 58 % (45-75) Lymphocytes % (Manual) 25 % (20-45) Monocytes % (Manual) 15 % (1-10) H Eosinophils % (Manual) 2 % (0-3) Basophils % (Manual) 0 % (0-2) Band Neutrophils 0 % (0-8) Platelet Estimate Decreased L Platelet Morphology Normal Hypochromasia 1+ Anisocytosis 1+ Sodium Level 139 MMOL/L (136-145) Potassium Level 4.4 MMOL/L (3.5-5.1) Chloride Level 96 MMOL/L (98-107) L Carbon Dioxide Level 36 MMOL/L (21-32) H Anion Gap 7 mmol/L (5-15) Blood Urea Nitrogen 43 mg/dL (7-18) H Creatinine 10.2 MG/DL (0.55-1.30) H Estimat Glomerular Filtration Rate 6.4 mL/min (>60) Glucose Level 89 MG/DL (74-106) Calcium Level 8.2 MG/DL (8.5-10.1) L Intake and Output 06/20/17 06/21/17 19:00 07:00 Intake Total 1460 ml 1113.8 ml Balance 1460 ml 1113.8 ml Intake Oral 960 ml IV Total 500 ml 863.8 ml Blood Product 250 ml # Voids 2 Objective General Appearance: WD/WN, alert, moderate distress EENT: PERRL/EOMI, normal ENT inspection Neck: non-tender, normal alignment, supple, normal inspection Cardiovascular: normal peripheral pulses, normal rate, regular rhythm, no gallop/murmur, no JVD Respiratory/Chest: Nasal canula; respiratory distress, crackles/rales, rhonchi - bilaterally, expiratory wheezing Abdomen: normal bowel sounds, non tender, soft, no organomegaly, no mass Extremities: normal range of motion 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 Currently on nasal canula. See pulmonay note. (2) Pleuritic chest pain (3) Hemoptysis Assessment & Plan: Due to pneumonia (4) Pneumonia Assessment & Plan: RUL and cavitary. Concerning for TB. Await AFB cultures- see ID consult. Continue vanco and ethambutol per ID (5) Shortness of breath (6) ESRD (end stage renal disease) on dialysis Assessment & Plan: See nephrology note. Hemodialysis 06/14/17 per nephrology (7) Hyperkalemia Assessment & Plan: Due to renal failure. Hemodialysis 06/12/17 per nephrology (8) COPD (chronic obstructive pulmonary disease) (9) HTN (hypertension) Assessment & Plan: Continue coreg and lisinopril. (10) CHF (congestive heart failure) (11) Elevated troponin Assessment & Plan: ?due to renal failure? See cardiology note. (12) Intractable abdominal pain Assessment & Plan: See surgery note. Await CT abdomen Status: not improved ZOEY PIRES Jun 21, 2017 17:24
--- NOTE | 2017-06-21 19:10 | Infectious Diseases Prog Note ---
Assessment/Plan Assessment/Plan A: Cavitary PNA. SCx: Neg ( m/l necrotizing Pneum, less likely fungal and doubt TB ) -sp cx 06/18 GNR + Providencia Rsp status improved but on 06/[address] his condition worsen T-SPOT :Neg AFB x 3 : Neg MTB PCR x2 : neg cryptococcus Ag : neg 06/21 Xray : improvement of cavity CT chest 06/15: Slightly smaller (6 cm diameter ) but mostly unchanged cavitary lesion in the right lung, previously thought to represent a cavitating inflammatory process. Lung abscess is certainly a possibility. Fairly extensive bilateral pulmonary parenchymal consolidation, slightly increased from previous exam of 06/05/2017. Likely a combination of pulmonary edema and pneumonia. Small right and trace left pleural effusion, new/increased from the previous study. CT 06/05: 7.8 x 5.3 x 6.6 cm dense opacity in the posterior inferior right upper lobe with a central cavitation. Chest x-ray : right mid lung infiltrate, possible cavitation Rule out tuberculosis, fungal infection, or necrotizing pneumonia. CRP 14 Influenza negative Low-grade fever, SP Status post leukocytosis. Transaminitis ,? 2/2 Hep C cirrhosis- no active Hep C as VL not dected -CT abd/p: Evidence of hepatic cirrhosis. Hepatosplenomegaly. evidence of generalized anasarca, with pleural fluid and generalized subcutaneous edema. Cholelithiasis, also previously reported. Possible diverticulosis. No evidence of diverticulitis US Abd : Cholelithiasis. There is gallbladder wall thickening, likely related to hemodynamic abnormalities Splenomegaly. Evidence of hepatic cirrhosis HIV : NEG Hep Panel B neg , C Ab : +ve , VL not detected leukopenia and TCP 2/2 splenomegaly Seizure disorder History of CVA History of pacemaker placement Hyperlipidemia Hypertension COPD/asthma End-stage renal disease, on hemodialysis Diabetes Anxiety Anemia Echo, ejection fraction 45% to 50%. PLAN: add Rocephin d # 1 Cont empiric AmphoB # 8 ( possible Aspergillosis) pending cultures and fungal serologies -once LFTs improved, can do voriconazole challenge -Continue Flagyl (in addition with Levaquin will provide anaerobic coverage for possible aspiration/cavitary PNA as no isolation of resistant organisms); abx d # 19/21-28 Continue empiric Ethambutol , amikacin d# 8 and Levaquin d# 9 ( TB Control recs to start TB Rx, doubt that this is needed at his time pt has pt improved initially, wups so far neg for TB, has increased of LFT , ) 06/17 SP IV Vancomycin #14, Meropenem #5 3/ SP Zosyn d# 10 3/4 SP Zithromax D# 6 f/u sputum culture (, fungal, and AFB x3). f/u Coccidioidal ,Galactomannan and Fungitell, Histoplasma ag urine and ab, blastomycies ab -f/u sp cx GNR -CXR Airborne isolation for now may need BAL , will defer this to Pul team may need JIMY ro SBE w emboli to lung ( hx of AICD ) Subjective Allergies: Coded Allergies: No Known Allergies (Unverified , 10/24/15) Subjective no fever Objective Vital Signs Last 24 Hour Vital Signs Date Time Temp Pulse Resp B/P (MAP) Pulse Ox O2 Delivery O2 Flow Rate FiO2 06/21/17 18:45 98.4 06/21/17 18:45 98.4 06/21/17 18:15 98.4 06/21/17 18:15 98.4 06/21/17 18:14 125/76 06/21/17 16:28 98.4 77 21 125/76 94 98.4 06/21/17 14:07 97.9 06/21/17 12:22 128/80 06/21/17 11:51 97.9 71 20 128/80 93 97.9 06/21/17 10:07 97.8 06/21/17 09:01 78 121/76 06/21/17 09:00 121/76 06/21/17 09:00 97.8 06/21/17 07:30 97.8 78 20 121/76 96 97.8 06/21/17 06:52 Nasal Cannula 3.0 32 06/21/17 06:52 92 Nasal Cannula 3.0 32 06/21/17 05:59 97.8 06/21/17 05:14 75 26 98 Facial 40 06/21/17 04:00 96 Nasal Cannula 4.0 06/21/17 04:00 97.8 71 21 110/71 96 97.8 06/21/17 03:53 82 29 97 Facial 40 06/21/17 02:04 96.6 06/21/17 01:05 96.6 06/21/17 00:38 78 29 97 Facial 40 06/21/17 00:07 98 Nasal Cannula 4.0 06/21/17 00:01 96.6 68 20 122/71 98 Nasal Cannula 96.6 06/20/17 23:55 97.4 06/20/17 21:18 97.4 06/20/17 20:27 97.4 62 19 119/69 96 Nasal Cannula 97.4 06/20/17 20:27 96 Nasal Cannula 4.0 06/20/17 19:56 62 119/69 06/20/17 19:20 94 Nasal Cannula 4.0 36 06/20/17 19:20 Nasal Cannula 4.0 36 Height (Feet): 5 Height (Inches): 7.00 Weight (Pounds): 224 HEENT: anicteric Respiratory/Chest: no accessory muscle use Cardiovascular: regularly irregular Abdomen: no mass Laboratory Tests Test 06/20/17 20:00 06/21/17 06:00 Amikacin Level Trough 21.4 MG/L (4.0-8.0) H White Blood Count 5.6 K/UL (4.8-10.8) Red Blood Count 2.39 M/UL (4.70-6.10) L Hemoglobin 7.3 G/DL (14.2-18.0) L Hematocrit 22.4 % (42.0-52.0) L Mean Corpuscular Volume 94 FL (80-99) Mean Corpuscular Hemoglobin 30.7 PG (27.0-31.0) Mean Corpuscular Hemoglobin Concent 32.8 G/DL (32.0-36.0) Red Cell Distribution Width 16.9 % (11.6-14.8) H Platelet Count 123 K/UL (150-450) L Mean Platelet Volume 7.1 FL (6.5-10.1) Neutrophils (%) (Auto) % (45.0-75.0) Lymphocytes (%) (Auto) % (20.0-45.0) Monocytes (%) (Auto) % (1.0-10.0) Eosinophils (%) (Auto) % (0.0-3.0) Basophils (%) (Auto) % (0.0-2.0) Differential Total Cells Counted 100 Neutrophils % (Manual) 58 % (45-75) Lymphocytes % (Manual) 25 % (20-45) Monocytes % (Manual) 15 % (1-10) H Eosinophils % (Manual) 2 % (0-3) Basophils % (Manual) 0 % (0-2) Band Neutrophils 0 % (0-8) Platelet Estimate Decreased L Platelet Morphology Normal Hypochromasia 1+ Anisocytosis 1+ Sodium Level 139 MMOL/L (136-145) Potassium Level 4.4 MMOL/L (3.5-5.1) Chloride Level 96 MMOL/L (98-107) L Carbon Dioxide Level 36 MMOL/L (21-32) H Anion Gap 7 mmol/L (5-15) Blood Urea Nitrogen 43 mg/dL (7-18) H Creatinine 10.2 MG/DL (0.55-1.30) H Estimat Glomerular Filtration Rate 6.4 mL/min (>60) Glucose Level 89 MG/DL (74-106) Calcium Level 8.2 MG/DL (8.5-10.1) L Current Medications Medications (Trade) Dose Ordered Sig/Jose Route PRN Reason Start Time Stop Time Status Last Admin Dose Admin Acetaminophen (Tylenol) 650 mg Q4H PRN RECTAL Mild Pain (Pain Scale 1-3) 06/16/17 19:00 07/09/17 18:59 Alprazolam (Xanax) 2 mg DAILYPRN PRN ORAL Agitation 06/16/17 18:45 06/23/17 18:44 06/20/17 12:48 Amikacin Sulfate 950 mg/Sodium Chloride 113.8 ml @ 227.6 mls/ hr FRI-FRI-FRI IV 06/18/17 21:00 06/25/17 23:59 06/20/17 22:28 Amphotericin B 50 mg/Dextrose 500 ml @ 100 mls/hr Q24H IV 06/16/17 20:00 06/21/17 19:59 06/20/17 19:55 Carisoprodol (Soma) 350 mg BID ORAL 06/17/17 20:00 07/15/17 19:59 06/21/17 18:15 Carisoprodol (Soma) 350 mg Q6H PRN ORAL MUSCLE SPASMS 06/16/17 19:00 07/14/17 18:59 06/20/17 23:55 Carvedilol (Coreg) 25 mg EVERY 12 HOURS ORAL 06/16/17 21:00 07/04/17 11:29 06/21/17 09:01 Chlorhexidine Gluconate (Mireille-Hex 2%) 1 applic DAILY@1999 TOPIC 06/16/17 20:00 07/05/17 19:59 06/20/17 19:54 Clonidine HCl (Catapres Tab) 0.1 mg Q4H PRN ORAL bp over 160 syst 06/16/17 19:00 07/03/17 18:59 Dextrose 1,000 ml @ 50 mls/hr Q20H IV 06/16/17 19:00 07/14/17 18:59 06/20/17 23:33 Dextrose (Dextrose 50%) STAT PRN IV Hypoglycemia 06/16/17 19:00 07/14/17 18:59 Docusate Sodium (Colace) 100 mg THREE TIMES A DAY ORAL 06/17/17 20:00 07/03/17 19:59 06/21/17 18:14 Ethambutol HCl (Myambutol) 1,000 mg 3XW ORAL 06/18/17 09:00 07/18/17 23:59 06/20/17 08:44 Levofloxacin (Levaquin) 750 mg EVERY OTHER DAY@1999 ORAL 06/17/17 20:00 06/24/17 19:59 06/19/17 21:13 Lisinopril (Prinivil) 20 mg BID ORAL 06/17/17 09:00 07/04/17 08:59 06/21/17 18:14 Meperidine HCl (Demerol) 25 mg ONCE PRN IM RIGOR AFTER AMPHO DOSE 06/16/17 19:00 06/23/17 18:59 Metronidazole (Flagyl) 500 mg Q8HR ORAL 06/17/17 22:00 06/24/17 21:59 06/21/17 14:03 Morphine Sulfate (Morphine Sulfate) 2 mg Q4H PRN IVP Moderate Pain (Pain Scale 4-6) 06/17/17 14:45 06/24/17 14:44 06/21/17 18:15 Nitroglycerin (Ntg) 0.4 mg Q5M PRN SL Prn Chest Pain 06/16/17 18:15 07/04/17 09:14 Nitroglycerin (Ntg) 1 patch Q24H TDERMAL 06/17/17 11:30 07/04/17 11:29 06/21/17 12:22 Ondansetron HCl (Zofran) 4 mg Q6H PRN IVP Nausea & Vomiting 06/16/17 18:30 07/14/17 18:29 Pantoprazole (Protonix) 40 mg ACBREAKFAST ORAL 06/17/17 06:30 07/15/17 06:29 06/21/17 05:58 Polyethylene Glycol (Miralax) 17 gm DAILYPRN PRN ORAL Constipation 06/16/17 18:30 07/14/17 18:29 Promethazine HCl/ Codeine (Phenergan with Codeine) 5 ml Q4H PRN ORAL For Cough 06/16/17 18:30 07/05/17 18:29 Sevelamer Carbonate (Renvela) 2,400 mg THREE TIMES A DAY ORAL 06/16/17 18:45 07/16/17 18:44 06/21/17 18:14 PREET GUAJARDO M.D. Jun 21, 2017 19:10
[2017-06-21 20:04] VITALS: BP 130/70
[2017-06-21] MEDS: Dyna-Hex 2% Top Sol 2oz TOPIC SCH (20:20)
[2017-06-21] MEDS: cefTRIAXone 2 GM in D5W 55 ML IVPB SCH (20:21)
[2017-06-21] MEDS: ALPRAZolam 0.5mg tab ORAL PRN (23:50)
[2017-06-22] VITALS: BP 133/91
[2017-06-22] MEDS: Morphine Sulfate 2mg/ml Inj IVP PRN ×6 (02:38→22:36)
[2017-06-22 04:00] VITALS: BP 117/83
[2017-06-22] MEDS: metroNIDAZOLE 500mg tab ORAL SCH ×3 (05:46→20:38)
[2017-06-22 07:38] LABS: HEMATOCRIT 22.3 % (42.0-52.0); HEMOGLOBIN 7.2 G/DL (14.2-18.0); MEAN CORPUSCULAR VOLUME 93 FL (80-99); PLATELET COUNT 132 K/UL (150-450); RED BLOOD COUNT 2.41 M/UL (4.70-6.10); RED CELL DISTRIBUTION WIDTH 17.3 % (11.6-14.8); WHITE BLOOD COUNT 4.9 K/UL (4.8-10.8)
[2017-06-22 07:40] LABS: ANION GAP 6 mmol/L (5-15); BLOOD UREA NITROGEN 50 mg/dL (7-18); CALCIUM 8.4 MG/DL (8.5-10.1); CARBON DIOXIDE 35 MMOL/L (21-32); CHLORIDE 94 MMOL/L (98-107); CREATININE 11.6 MG/DL (0.55-1.30); POTASSIUM 4.2 MMOL/L (3.5-5.1); SODIUM 134 MMOL/L (136-145)
[2017-06-22 08:00] VITALS: BP 123/69
[2017-06-22] MEDS: Docusate 100mg cap ORAL SCH ×3 (09:11→17:33)
[2017-06-22] MEDS: Carvedilol 25mg Tab ORAL SCH ×2 (09:11→20:38)
[2017-06-22] MEDS: Lisinopril 20mg tab ORAL SCH ×2 (09:12→17:34)
[2017-06-22] MEDS: Nitroglycerin Patch 0.4mg TDERMAL SCH (11:55)
[2017-06-22 11:58] VITALS: BP 131/77
--- NOTE | 2017-06-22 12:37 | General Progress Note ---
Assessment/Plan Assessment/Plan #. Anemia secondary to chronic disease. --> S/P PRBC. Hemoglobin remains on the lower side. Will need another transfusion if hemoglobin levels decline. --> S/P abd CAT scan revealing evidence of hepatic cirrhosis. --> Hepatosplenomegaly. Ascites. There is also evidence of generalized anasarca , with pleural fluid and generalized subcutaneous edema --> Continue to closely monitor and trend cbc daily. --> Anemia workup completed and reviewed. Iron 42, TIBC 180, Ferritin 593, B12 876. --> Ferritin is >500, hgb goal is >7 --> Anemia w/u has been reviewed --> ++Occult blood. Consider GI Services and Recs. --> Noted some abd pain, ongoing pain control. Pain improved. #. Anemia of kidney disease --> HD as needed per nephrology team --> Monitor closely. #. Generalized body ache related to fluid overload. #. End-stage renal disease, on hemodialysis as needed --> Monitor. S/P HD. #. Tachycardia, to be seen by Cardiology Service, isolated T-wave and ST- segment depression in V6. --> HR has been ~80-90bpm --> S/P Chest CT -- Evidence of worsening CHF/interstitial edema. --> Monitor for improvement. #. Elevated BNP, potentially related to underlying CKD. Subjective Date patient seen: Jun 21, 2017 Constitutional: Denies: no symptoms, chills, diaphoresis, fever, malaise, weakness, other HEENT: Denies: no symptoms, eye pain, blurred vision, tearing, double vision, ear pain, ear discharge, nose pain, nose congestion, throat pain, throat swelling, mouth pain, mouth swelling, other Cardiovascular: Denies: no symptoms, chest pain, edema, irregular heart rate, lightheadedness, palpitations, syncope, other Respiratory: Denies: no symptoms, cough, orthopnea, shortness of breath, SOB with excertion, SOB at rest, sputum, stridor, wheezing, other Gastrointestinal/Abdominal: Denies: no symptoms, abdomen distended, abdominal pain, black stools, tarry stools, blood in stool, constipated, diarrhea, difficulty swallowing, nausea, poor appetite, poor fluid intake, rectal bleeding , vomiting, other Genitourinary: Denies: no symptoms, burning, discharge, frequency, flank pain, hematuria, incontinence, pain, urgency, other Neurologic/Psychiatric: Denies: no symptoms, anxiety, depressed, emotional problems, headache, numbness, paresthesia, pre-existing deficit, seizure, tingling, tremors, weakness, other Hematologic/Lymphatic: Reports: anemia Allergies: Coded Allergies: No Known Allergies (Unverified , 10/24/15) Subjective Hemoglobin low. No fever or chills. Objective Last 24 Hour Vital Signs Date Time Temp Pulse Resp B/P (MAP) Pulse Ox O2 Delivery O2 Flow Rate FiO2 06/22/17 11:58 98.2 74 20 131/77 93 98.2 06/22/17 11:55 131/77 06/22/17 11:03 98.1 06/22/17 10:33 98.1 06/22/17 10:11 98.1 06/22/17 09:12 123/69 06/22/17 09:12 98.1 06/22/17 09:11 64 123/69 06/22/17 09:00 Venturi Mask 6.0 35 06/22/17 09:00 96 Venturi Mask 6.0 35 06/22/17 08:00 98.1 59 20 123/69 98.1 06/22/17 05:06 79 16 99 Facial 40 06/22/17 04:00 97.0 68 20 117/83 100 97.0 06/22/17 03:47 78 19 99 Facial 40 06/22/17 00:44 72 18 99 Facial 40 06/22/17 00:00 97.0 66 18 133/91 100 97.0 06/21/17 23:18 83 16 98 Facial 40 06/21/17 22:05 Venturi Mask 6.0 35 06/21/17 22:04 98 Venturi Mask 6.0 35 06/21/17 20:20 75 130/70 06/21/17 20:04 99.0 75 19 130/70 94 99.0 06/21/17 20:00 Nasal Cannula 4.0 06/21/17 18:15 98.4 06/21/17 18:15 98.4 06/21/17 18:14 125/76 06/21/17 16:28 98.4 77 21 125/76 94 98.4 06/21/17 14:07 97.9 Intake and Output 06/21/17 06/22/17 19:00 07:00 Intake Total 830 ml 655 ml Output Total 150 ml 0 ml Balance 680 ml 655 ml Intake Oral 780 ml IV Total 50 ml 655 ml Output Urine Total 150 ml 0 ml Stool Total 0 ml # Voids 2 # Bowel Movements 1 Laboratory Tests 06/22/17 05:45: White Blood Count 4.9, Red Blood Count 2.41L, Hemoglobin 7.2L, Hematocrit 22.3L , Mean Corpuscular Volume 93, Mean Corpuscular Hemoglobin 30.1, Mean Corpuscular Hemoglobin Concent 32.5, Red Cell Distribution Width 17.3H, Platelet Count 132L, Mean Platelet Volume 7.0, Neutrophils (%) (Auto) , Lymphocytes (%) (Auto) , Monocytes (%) (Auto) , Eosinophils (%) (Auto) , Basophils (%) (Auto) , Differential Total Cells Counted 100, Neutrophils % ( Manual) 50, Lymphocytes % (Manual) 34, Monocytes % (Manual) 14H, Eosinophils % ( Manual) 2, Basophils % (Manual) 0, Band Neutrophils 0, Platelet Estimate DecreasedL, Platelet Morphology Normal, Polychromasia 1+, Hypochromasia 1+, Anisocytosis 2+, Sodium Level 134L, Potassium Level 4.2, Chloride Level 94L, Carbon Dioxide Level 35H, Anion Gap 6, Blood Urea Nitrogen 50H, Creatinine 11.6H , Estimat Glomerular Filtration Rate 5.5, Glucose Level 121H, Calcium Level 8.4L Height (Feet): 5 Height (Inches): 7.00 Weight (Pounds): 227 General Appearance: confused Respiratory/Chest: decreased breath sounds Abdomen: soft Irving Parker MD Jun 22, 2017 12:36
--- NOTE | 2017-06-22 13:24 | General Surgery Progress Note ---
General Surgery-Progress Note Subjective Symptoms: improved Additional Comments pain improving. no n/v/f/c. comfortable. Objective Last 24 Hour Vital Signs Date Time Temp Pulse Resp B/P (MAP) Pulse Ox O2 Delivery O2 Flow Rate FiO2 06/22/17 11:58 98.2 74 20 131/77 93 98.2 06/22/17 11:55 131/77 06/22/17 11:03 98.1 06/22/17 10:33 98.1 06/22/17 10:11 98.1 06/22/17 09:12 123/69 06/22/17 09:12 98.1 06/22/17 09:11 64 123/69 06/22/17 09:00 Venturi Mask 6.0 35 06/22/17 09:00 96 Venturi Mask 6.0 35 06/22/17 08:00 98.1 59 20 123/69 98.1 06/22/17 05:06 79 16 99 Facial 40 06/22/17 04:00 97.0 68 20 117/83 100 97.0 06/22/17 03:47 78 19 99 Facial 40 06/22/17 00:44 72 18 99 Facial 40 06/22/17 00:00 97.0 66 18 133/91 100 97.0 06/21/17 23:18 83 16 98 Facial 40 06/21/17 22:05 Venturi Mask 6.0 35 06/21/17 22:04 98 Venturi Mask 6.0 35 06/21/17 20:20 75 130/70 06/21/17 20:04 99.0 75 19 130/70 94 99.0 06/21/17 20:00 Nasal Cannula 4.0 06/21/17 18:15 98.4 06/21/17 18:15 98.4 06/21/17 18:14 125/76 06/21/17 16:28 98.4 77 21 125/76 94 98.4 06/21/17 14:07 97.9 I&O Intake and Output 06/21/17 06/22/17 19:00 07:00 Intake Total 830 ml 655 ml Output Total 150 ml 0 ml Balance 680 ml 655 ml Intake Oral 780 ml IV Total 50 ml 655 ml Output Urine Total 150 ml 0 ml Stool Total 0 ml # Voids 2 # Bowel Movements 1 Drains: none Cardiovascular: RSR Respiratory: clear Abdomen: soft, distended, tenderness - superficial , present bowel sounds Extremities: no cyanosis Laboratory Tests Test 06/22/17 05:45 White Blood Count 4.9 K/UL (4.8-10.8) Red Blood Count 2.41 M/UL (4.70-6.10) L Hemoglobin 7.2 G/DL (14.2-18.0) L Hematocrit 22.3 % (42.0-52.0) L Mean Corpuscular Volume 93 FL (80-99) Mean Corpuscular Hemoglobin 30.1 PG (27.0-31.0) Mean Corpuscular Hemoglobin Concent 32.5 G/DL (32.0-36.0) Red Cell Distribution Width 17.3 % (11.6-14.8) H Platelet Count 132 K/UL (150-450) L Mean Platelet Volume 7.0 FL (6.5-10.1) Neutrophils (%) (Auto) % (45.0-75.0) Lymphocytes (%) (Auto) % (20.0-45.0) Monocytes (%) (Auto) % (1.0-10.0) Eosinophils (%) (Auto) % (0.0-3.0) Basophils (%) (Auto) % (0.0-2.0) Differential Total Cells Counted 100 Neutrophils % (Manual) 50 % (45-75) Lymphocytes % (Manual) 34 % (20-45) Monocytes % (Manual) 14 % (1-10) H Eosinophils % (Manual) 2 % (0-3) Basophils % (Manual) 0 % (0-2) Band Neutrophils 0 % (0-8) Platelet Estimate Decreased L Platelet Morphology Normal Polychromasia 1+ Hypochromasia 1+ Anisocytosis 2+ Sodium Level 134 MMOL/L (136-145) L Potassium Level 4.2 MMOL/L (3.5-5.1) Chloride Level 94 MMOL/L (98-107) L Carbon Dioxide Level 35 MMOL/L (21-32) H Anion Gap 6 mmol/L (5-15) Blood Urea Nitrogen 50 mg/dL (7-18) H Creatinine 11.6 MG/DL (0.55-1.30) H Estimat Glomerular Filtration Rate 5.5 mL/min (>60) Glucose Level 121 MG/DL (74-106) H Calcium Level 8.4 MG/DL (8.5-10.1) L Plan Problems: (1) Intractable abdominal pain Assessment & Plan: 57M with abdominal pain. elevated lft's and ultrasound reviewed. has liver cirrhosis, ascites, and gallbladder findings on ultrasound likely secondary to intrinsic liver disease. on exam his abdominal pain is fairly superficial and around this right abd upper and lower and right flank. he has edema and thickening of the right subcutaneous tissues as compared to the left. possible abscess vs cellulitis? Ultrasound findings: Impression: Ascites Evidence of hepatic cirrhosis Cholelithiasis. There is gallbladder wall thickening, likely related to hemodynamic abnormalities related to the hepatic abnormality, particularly as this is evident on the prior exam of 2 years earlier. However, acute cholecystitis cannot be completely ruled out, and hepatobiliary scanning is recommended if there is high clinical suspicion CT findings: Impression: Evidence of hepatic cirrhosis. Hepatosplenomegaly Ascites. There is also evidence of generalized anasarca, with pleural fluid and generalized subcutaneous edema Cholelithiasis, also previously reported Possible diverticulosis. No evidence of diverticulitis Nonvisualized appendix. No evidence of appendicitis Left renal cysts. Subcentimeter right lobe hepatic and bilateral renal lesions, too small to characterize, most likely benign simple cysts. No further follow-up necessary Bilateral pleural effusions and parenchymal consolidation. LFT's improving. but still no clear explanation as to acute elevation in LFT' s. Right sided abdominal pain improved CT A/P reviewed. labs reviewed -given exam, radiological findings, history, unlikely to be acute cholecystitis. exam with discomfort in right upper/lower/flank region and improving ultrasound findings similar to that of two years ago. -no acute surgical intervention recommended at this time. -cont rocky Ever Parham Jun 22, 2017 13:24
--- NOTE | 2017-06-22 14:59 | Internal Med Progress Note ---
Subjective Date of Service: Jun 22, 2017 Physician Name Claloway,Zoey Attending Physician Chaitanya Weinstein MD Current Medications Medications (Trade) Dose Ordered Sig/Jose Route PRN Reason Start Time Stop Time Status Last Admin Dose Admin Acetaminophen (Tylenol) 650 mg Q4H PRN RECTAL Mild Pain (Pain Scale 1-3) 06/16/17 19:00 07/09/17 18:59 Alprazolam (Xanax) 2 mg DAILYPRN PRN ORAL Agitation 06/16/17 18:45 06/23/17 18:44 06/21/17 23:50 Amikacin Sulfate 950 mg/Sodium Chloride 113.8 ml @ 227.6 mls/ hr FRI-FRI-FRI IV 06/18/17 21:00 06/25/17 23:59 06/20/17 22:28 Carisoprodol (Soma) 350 mg BID ORAL 06/17/17 20:00 07/15/17 19:59 06/22/17 09:12 Carisoprodol (Soma) 350 mg Q6H PRN ORAL MUSCLE SPASMS 06/16/17 19:00 07/14/17 18:59 06/20/17 23:55 Carvedilol (Coreg) 25 mg EVERY 12 HOURS ORAL 06/16/17 21:00 07/04/17 11:29 06/22/17 09:11 Ceftriaxone Sodium 2 gm/ Dextrose 55 ml @ 110 mls/hr Q24H IVPB 06/21/17 20:00 06/28/17 19:59 06/21/17 20:21 Chlorhexidine Gluconate (Mireille-Hex 2%) 1 applic DAILY@2000 TOPIC 06/16/17 20:00 07/05/17 19:59 06/21/17 20:20 Clonidine HCl (Catapres Tab) 0.1 mg Q4H PRN ORAL bp over 160 syst 06/16/17 19:00 07/03/17 18:59 Dextrose 1,000 ml @ 50 mls/hr Q20H IV 06/16/17 19:00 07/14/17 18:59 06/22/17 14:25 Dextrose (Dextrose 50%) STAT PRN IV Hypoglycemia 06/16/17 19:00 07/14/17 18:59 Docusate Sodium (Colace) 100 mg THREE TIMES A DAY ORAL 06/17/17 20:00 07/03/17 19:59 06/22/17 13:35 Ethambutol HCl (Myambutol) 1,000 mg 3XW ORAL 06/18/17 09:00 07/18/17 23:59 06/20/17 08:44 Levofloxacin (Levaquin) 750 mg EVERY OTHER DAY@2000 ORAL 06/17/17 20:00 06/24/17 19:59 06/21/17 20:20 Lisinopril (Prinivil) 20 mg BID ORAL 06/17/17 09:00 07/04/17 08:59 06/22/17 09:12 Meperidine HCl (Demerol) 25 mg ONCE PRN IM RIGOR AFTER AMPHO DOSE 06/16/17 19:00 06/23/17 18:59 Metronidazole (Flagyl) 500 mg Q8HR ORAL 06/17/17 22:00 06/24/17 21:59 06/22/17 13:36 Morphine Sulfate (Morphine Sulfate) 2 mg Q4H PRN IVP Moderate Pain (Pain Scale 4-6) 06/17/17 14:45 06/24/17 14:44 06/22/17 14:33 Nitroglycerin (Ntg) 0.4 mg Q5M PRN SL Prn Chest Pain 06/16/17 18:15 07/04/17 09:14 Nitroglycerin (Ntg) 1 patch Q24H TDERMAL 06/17/17 11:30 07/04/17 11:29 06/22/17 11:55 Ondansetron HCl (Zofran) 4 mg Q6H PRN IVP Nausea & Vomiting 06/16/17 18:30 07/14/17 18:29 Pantoprazole (Protonix) 40 mg ACBREAKFAST ORAL 06/17/17 06:30 07/15/17 06:29 06/22/17 05:46 Polyethylene Glycol (Miralax) 17 gm DAILYPRN PRN ORAL Constipation 06/16/17 18:30 07/14/17 18:29 Promethazine HCl/ Codeine (Phenergan with Codeine) 5 ml Q4H PRN ORAL For Cough 06/16/17 18:30 07/05/17 18:29 Sevelamer Carbonate (Renvela) 2,400 mg THREE TIMES A DAY ORAL 06/16/17 18:45 07/16/17 18:44 06/22/17 13:36 Allergies: Coded Allergies: No Known Allergies (Unverified , 10/24/15) ROS Limited/Unobtainable: No Constitutional: Reports: no symptoms HEENT: Reports: eye pain, blurred vision Cardiovascular: Reports: no symptoms Respiratory: Reports: no symptoms Gastrointestinal/Abdominal: Reports: no symptoms Genitourinary: Reports: no symptoms Subjective 57 YO M admitted with chest pain and shortness of breath. Now pneumonia and candelaria heart failure. Tolerating nasal canula. Cover for Int Misbah-Dr Weinstein. C/O conjunctivitis Objective Last Vital Signs Date Time Temp Pulse Resp B/P (MAP) Pulse Ox O2 Delivery O2 Flow Rate FiO2 06/22/17 14:33 98.2 06/22/17 11:58 74 20 131/77 93 06/22/17 09:00 Venturi Mask 6.0 35 Laboratory Tests Test 06/22/17 05:45 White Blood Count 4.9 K/UL (4.8-10.8) Red Blood Count 2.41 M/UL (4.70-6.10) L Hemoglobin 7.2 G/DL (14.2-18.0) L Hematocrit 22.3 % (42.0-52.0) L Mean Corpuscular Volume 93 FL (80-99) Mean Corpuscular Hemoglobin 30.1 PG (27.0-31.0) Mean Corpuscular Hemoglobin Concent 32.5 G/DL (32.0-36.0) Red Cell Distribution Width 17.3 % (11.6-14.8) H Platelet Count 132 K/UL (150-450) L Mean Platelet Volume 7.0 FL (6.5-10.1) Neutrophils (%) (Auto) % (45.0-75.0) Lymphocytes (%) (Auto) % (20.0-45.0) Monocytes (%) (Auto) % (1.0-10.0) Eosinophils (%) (Auto) % (0.0-3.0) Basophils (%) (Auto) % (0.0-2.0) Differential Total Cells Counted 100 Neutrophils % (Manual) 50 % (45-75) Lymphocytes % (Manual) 34 % (20-45) Monocytes % (Manual) 14 % (1-10) H Eosinophils % (Manual) 2 % (0-3) Basophils % (Manual) 0 % (0-2) Band Neutrophils 0 % (0-8) Platelet Estimate Decreased L Platelet Morphology Normal Polychromasia 1+ Hypochromasia 1+ Anisocytosis 2+ Sodium Level 134 MMOL/L (136-145) L Potassium Level 4.2 MMOL/L (3.5-5.1) Chloride Level 94 MMOL/L (98-107) L Carbon Dioxide Level 35 MMOL/L (21-32) H Anion Gap 6 mmol/L (5-15) Blood Urea Nitrogen 50 mg/dL (7-18) H Creatinine 11.6 MG/DL (0.55-1.30) H Estimat Glomerular Filtration Rate 5.5 mL/min (>60) Glucose Level 121 MG/DL (74-106) H Calcium Level 8.4 MG/DL (8.5-10.1) L Intake and Output 06/21/17 06/22/17 19:00 07:00 Intake Total 830 ml 655 ml Output Total 150 ml 0 ml Balance 680 ml 655 ml Intake Oral 780 ml IV Total 50 ml 655 ml Output Urine Total 150 ml 0 ml Stool Total 0 ml # Voids 2 # Bowel Movements 1 Objective General Appearance: WD/WN, alert, moderate distress EENT: PERRL/EOMI, normal ENT inspection Neck: non-tender, normal alignment, supple, normal inspection Cardiovascular: normal peripheral pulses, normal rate, regular rhythm, no gallop/murmur, no JVD Respiratory/Chest: Nasal canula; respiratory distress, crackles/rales, rhonchi - bilaterally, expiratory wheezing Abdomen: normal bowel sounds, non tender, soft, no organomegaly, no mass Extremities: normal range of motion Neurologic: chairman ceo 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 Currently on nasal canula. See pulmonay note. (2) Pleuritic chest pain (3) Hemoptysis Assessment & Plan: Due to pneumonia (4) Pneumonia Assessment & Plan: RUL and cavitary. Concerning for TB. Await AFB cultures- see ID consult. Continue vanco and ethambutol per ID (5) Shortness of breath (6) ESRD (end stage renal disease) on dialysis Assessment & Plan: See nephrology note. Hemodialysis 06/14/17 per nephrology (7) Hyperkalemia Assessment & Plan: Due to renal failure. Hemodialysis 06/12/17 per nephrology (8) COPD (chronic obstructive pulmonary disease) (9) HTN (hypertension) Assessment & Plan: Continue coreg and lisinopril. (10) CHF (congestive heart failure) (11) Elevated troponin Assessment & Plan: ?due to renal failure? See cardiology note. (12) Intractable abdominal pain Assessment & Plan: See surgery note. Await CT abdomen (13) Conjunctivitis Assessment & Plan: start tobramycin Status: ZOEY Ferro Jun 22, 2017 14:59
[2017-06-22 16:00] VITALS: BP 131/71
[2017-06-22] MEDS: Tobradex Opth Oint 3.5gm BOTH EYES SCH ×2 (17:33→20:39)
--- NOTE | 2017-06-22 18:11 | Nephrology Progress Note ---
Assessment/Plan Problem List: (1) ESRD (end stage renal disease) on dialysis (2) Shortness of breath (3) Anemia Assessment worsenning Anemia ESRD , missed HD , admitted with high K and pulmonary edema Acute respiratory distress due to volume overload elevated troponin r/o ACS h/o COPD ? exacerbation HTN urgency Cardiomyopathy L AICD anemia of chronic kidney disease Hx of CVA Plan Plan: Low H&H - consider transfusion HD next 06/23 Transfused Phos binders BP meds adjustment Optimize cardiac status per orders Subjective ROS Limited/Unobtainable: No Objective Objective Last 24 Hour Vital Signs Date Time Temp Pulse Resp B/P (MAP) Pulse Ox O2 Delivery O2 Flow Rate FiO2 06/22/17 17:34 131/77 06/22/17 17:34 98.0 06/22/17 16:00 98.0 64 20 131/71 94 98.0 06/22/17 15:03 98.2 06/22/17 14:33 98.2 06/22/17 11:58 98.2 74 20 131/77 93 98.2 06/22/17 11:55 131/77 06/22/17 10:33 98.1 06/22/17 10:11 98.1 06/22/17 09:12 123/69 06/22/17 09:12 98.1 06/22/17 09:11 64 123/69 06/22/17 09:00 Venturi Mask 6.0 35 06/22/17 09:00 96 Venturi Mask 6.0 35 06/22/17 08:00 98.1 59 20 123/69 98.1 06/22/17 05:06 79 16 99 Facial 40 06/22/17 04:00 97.0 68 20 117/83 100 97.0 06/22/17 03:47 78 19 99 Facial 40 06/22/17 00:44 72 18 99 Facial 40 06/22/17 00:00 97.0 66 18 133/91 100 97.0 06/21/17 23:18 83 16 98 Facial 40 06/21/17 22:05 Venturi Mask 6.0 35 06/21/17 22:04 98 Venturi Mask 6.0 35 06/21/17 20:20 75 130/70 06/21/17 20:04 99.0 75 19 130/70 94 99.0 06/21/17 20:00 Nasal Cannula 4.0 06/21/17 18:15 98.4 06/21/17 18:15 98.4 06/21/17 18:14 125/76 Intake and Output 06/21/17 06/22/17 19:00 07:00 Intake Total 830 ml 655 ml Output Total 150 ml 0 ml Balance 680 ml 655 ml Intake Oral 780 ml IV Total 50 ml 655 ml Output Urine Total 150 ml 0 ml Stool Total 0 ml # Voids 2 # Bowel Movements 1 Laboratory Tests 06/22/17 05:45: White Blood Count 4.9, Red Blood Count 2.41L, Hemoglobin 7.2L, Hematocrit 22.3L , Mean Corpuscular Volume 93, Mean Corpuscular Hemoglobin 30.1, Mean Corpuscular Hemoglobin Concent 32.5, Red Cell Distribution Width 17.3H, Platelet Count 132L, Mean Platelet Volume 7.0, Neutrophils (%) (Auto) , Lymphocytes (%) (Auto) , Monocytes (%) (Auto) , Eosinophils (%) (Auto) , Basophils (%) (Auto) , Differential Total Cells Counted 100, Neutrophils % ( Manual) 50, Lymphocytes % (Manual) 34, Monocytes % (Manual) 14H, Eosinophils % ( Manual) 2, Basophils % (Manual) 0, Band Neutrophils 0, Platelet Estimate DecreasedL, Platelet Morphology Normal, Polychromasia 1+, Hypochromasia 1+, Anisocytosis 2+, Sodium Level 134L, Potassium Level 4.2, Chloride Level 94L, Carbon Dioxide Level 35H, Anion Gap 6, Blood Urea Nitrogen 50H, Creatinine 11.6H , Estimat Glomerular Filtration Rate 5.5, Glucose Level 121H, Calcium Level 8.4L Height (Feet): 5 Height (Inches): 7.00 Weight (Pounds): 227 General Appearance: no apparent distress Objective no change LIAM MONTELONGO 18, 2018 18:11
[2017-06-22] MEDS ORDERED: Tubing IV Secondary IV ONE (18:54)
[2017-06-22 20:00] VITALS: BP 121/81
[2017-06-22] MEDS: cefTRIAXone 2 GM in D5W 55 ML IVPB SCH (20:39)
[2017-06-22] MEDS: Dyna-Hex 2% Top Sol 2oz TOPIC SCH (20:39)
--- NOTE | 2017-06-22 22:15 | Pulmonology Progress Note ---
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 Sputum shows only charli hold heparin for low PLT prbc prn on anti TB meds all notes reviewed f/u wbc and cultures Subjective ROS Limited/Unobtainable: No Allergies: Coded Allergies: No Known Allergies (Unverified , 10/24/15) Objective Last 24 Hour Vital Signs Date Time Temp Pulse Resp B/P (MAP) Pulse Ox O2 Delivery O2 Flow Rate FiO2 06/22/17 20:38 67 121/81 06/22/17 20:00 98.2 67 20 121/81 96 Nasal Cannula 98.2 06/22/17 19:02 96 Nasal Cannula 3.0 32 06/22/17 19:02 Nasal Cannula 3.0 32 06/22/17 18:37 98.0 06/22/17 18:33 98.0 06/22/17 17:34 131/77 06/22/17 17:34 98.0 06/22/17 16:00 Nasal Cannula 4.0 06/22/17 16:00 98.0 64 20 131/71 94 98.0 06/22/17 15:03 98.2 06/22/17 14:33 98.2 06/22/17 12:00 Nasal Cannula 4.0 06/22/17 11:58 98.2 74 20 131/77 93 98.2 06/22/17 11:55 131/77 06/22/17 10:33 98.1 06/22/17 09:12 123/69 06/22/17 09:12 98.1 06/22/17 09:11 64 123/69 06/22/17 09:00 Venturi Mask 6.0 35 06/22/17 09:00 96 Venturi Mask 6.0 35 06/22/17 08:00 98.1 59 20 123/69 98.1 06/22/17 08:00 Nasal Cannula 4.0 06/22/17 05:06 79 16 99 Facial 40 06/22/17 04:00 97.0 68 20 117/83 100 97.0 06/22/17 04:00 Nasal Cannula 4.0 06/22/17 03:47 78 19 99 Facial 40 06/22/17 00:44 72 18 99 Facial 40 06/22/17 00:00 Nasal Cannula 4.0 06/22/17 00:00 97.0 66 18 133/91 100 97.0 06/21/17 23:18 83 16 98 Facial 40 Intake and Output 06/21/17 06/22/17 19:00 07:00 Intake Total 830 ml 655 ml Output Total 150 ml 0 ml Balance 680 ml 655 ml Intake Oral 780 ml IV Total 50 ml 655 ml Output Urine Total 150 ml 0 ml Stool Total 0 ml # Voids 2 # Bowel Movements 1 Objective General Appearance: WD/WN HEENT: normocephalic, atraumatic, anicteric Respiratory/Chest: loud rhonchi Cardiovascular: normal peripheral pulses, normal rate, regular rhythm Abdomen: normal bowel sounds, soft, non tender, no organomegaly Genitourinary: normal external genitalia Extremities: no cyanosis Skin: no rash, no lesions Neurologic/Psychiatric: lure maker 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, no motor/sensory deficits Lymphatic: no neck adenopathy, no groin adenopathy Laboratory Tests 06/22/17 05:45: White Blood Count 4.9, Red Blood Count 2.41L, Hemoglobin 7.2L, Hematocrit 22.3L , Mean Corpuscular Volume 93, Mean Corpuscular Hemoglobin 30.1, Mean Corpuscular Hemoglobin Concent 32.5, Red Cell Distribution Width 17.3H, Platelet Count 132L, Mean Platelet Volume 7.0, Neutrophils (%) (Auto) , Lymphocytes (%) (Auto) , Monocytes (%) (Auto) , Eosinophils (%) (Auto) , Basophils (%) (Auto) , Differential Total Cells Counted 100, Neutrophils % ( Manual) 50, Lymphocytes % (Manual) 34, Monocytes % (Manual) 14H, Eosinophils % ( Manual) 2, Basophils % (Manual) 0, Band Neutrophils 0, Platelet Estimate DecreasedL, Platelet Morphology Normal, Polychromasia 1+, Hypochromasia 1+, Anisocytosis 2+, Sodium Level 134L, Potassium Level 4.2, Chloride Level 94L, Carbon Dioxide Level 35H, Anion Gap 6, Blood Urea Nitrogen 50H, Creatinine 11.6H , Estimat Glomerular Filtration Rate 5.5, Glucose Level 121H, Calcium Level 8.4L Current Medications Medications (Trade) Dose Ordered Sig/Jose Route PRN Reason Start Time Stop Time Status Last Admin Dose Admin Acetaminophen (Tylenol) 650 mg Q4H PRN RECTAL Mild Pain (Pain Scale 1-3) 06/16/17 19:00 07/09/17 18:59 Alprazolam (Xanax) 2 mg DAILYPRN PRN ORAL Agitation 06/16/17 18:45 06/23/17 18:44 06/21/17 23:50 Amikacin Sulfate 950 mg/Sodium Chloride 113.8 ml @ 227.6 mls/ hr FRI-FRI-FRI IV 06/18/17 21:00 06/25/17 23:59 06/20/17 22:28 Carisoprodol (Soma) 350 mg BID ORAL 06/17/17 20:00 07/15/17 19:59 06/22/17 17:34 Carisoprodol (Soma) 350 mg Q6H PRN ORAL MUSCLE SPASMS 06/16/17 19:00 07/14/17 18:59 06/20/17 23:55 Carvedilol (Coreg) 25 mg EVERY 12 HOURS ORAL 06/16/17 21:00 07/04/17 11:29 06/22/17 20:38 Ceftriaxone Sodium 2 gm/ Dextrose 55 ml @ 110 mls/hr Q24H IVPB 06/21/17 20:00 06/28/17 19:59 06/22/17 20:39 Chlorhexidine Gluconate (Mireille-Hex 2%) 1 applic DAILY@2000 TOPIC 06/16/17 20:00 07/05/17 19:59 06/22/17 20:39 Clonidine HCl (Catapres Tab) 0.1 mg Q4H PRN ORAL bp over 160 syst 06/16/17 19:00 07/03/17 18:59 Dextrose 1,000 ml @ 50 mls/hr Q20H IV 06/16/17 19:00 07/14/17 18:59 06/22/17 14:25 Dextrose (Dextrose 50%) STAT PRN IV Hypoglycemia 06/16/17 19:00 07/14/17 18:59 Docusate Sodium (Colace) 100 mg THREE TIMES A DAY ORAL 06/17/17 20:00 07/03/17 19:59 06/22/17 17:33 Ethambutol HCl (Myambutol) 1,000 mg 3XW ORAL 06/18/17 09:00 07/18/17 23:59 06/20/17 08:44 Levofloxacin (Levaquin) 750 mg EVERY OTHER DAY@2000 ORAL 06/17/17 20:00 06/24/17 19:59 06/21/17 20:20 Lisinopril (Prinivil) 20 mg BID ORAL 06/17/17 09:00 07/04/17 08:59 06/22/17 17:34 Meperidine HCl (Demerol) 25 mg ONCE PRN IM RIGOR AFTER AMPHO DOSE 06/16/17 19:00 06/23/17 18:59 Metronidazole (Flagyl) 500 mg Q8HR ORAL 06/17/17 22:00 06/24/17 21:59 06/22/17 20:38 Morphine Sulfate (Morphine Sulfate) 2 mg Q4H PRN IVP Moderate Pain (Pain Scale 4-6) 06/17/17 14:45 06/24/17 14:44 06/22/17 18:37 Nitroglycerin (Ntg) 0.4 mg Q5M PRN SL Prn Chest Pain 06/16/17 18:15 07/04/17 09:14 Nitroglycerin (Ntg) 1 patch Q24H TDERMAL 06/17/17 11:30 07/04/17 11:29 06/22/17 11:55 Ondansetron HCl (Zofran) 4 mg Q6H PRN IVP Nausea & Vomiting 06/16/17 18:30 07/14/17 18:29 Pantoprazole (Protonix) 40 mg ACBREAKFAST ORAL 06/17/17 06:30 07/15/17 06:29 06/22/17 05:46 Polyethylene Glycol (Miralax) 17 gm DAILYPRN PRN ORAL Constipation 06/16/17 18:30 07/14/17 18:29 Promethazine HCl/ Codeine (Phenergan with Codeine) 5 ml Q4H PRN ORAL For Cough 06/16/17 18:30 07/05/17 18:29 Sevelamer Carbonate (Renvela) 2,400 mg THREE TIMES A DAY ORAL 06/16/17 18:45 07/16/17 18:44 06/22/17 17:34 Tobramycin/ Dexamethasone (Tobradex Opth Oint) 1 applic FOUR TIMES A DAY BOTH EYES 06/22/17 18:00 06/28/17 23:59 06/22/17 20:39 Christine Morgan MD Jun 22, 2017 22:14
--- NOTE | 2017-06-22 22:41 | General Progress Note ---
Assessment/Plan Assessment/Plan #. Anemia secondary to chronic disease. --> S/P PRBC. Hemoglobin remains on the lower side. Will need another transfusion if hemoglobin levels decline. --> S/P abd CAT scan revealing evidence of hepatic cirrhosis. --> Hepatosplenomegaly. Ascites. There is also evidence of generalized anasarca , with pleural fluid and generalized subcutaneous edema --> Continue to closely monitor and trend cbc daily. --> Anemia workup completed and reviewed. Iron 42, TIBC 180, Ferritin 593, B12 876. --> Ferritin is >500, hgb goal is >7 --> Anemia w/u has been reviewed --> ++Occult blood. Consider GI Services and Recs. --> Noted some abd pain, ongoing pain control. Pain improved. #. Anemia of kidney disease --> HD as needed per nephrology team --> Monitor closely. #. Generalized body ache related to fluid overload. #. End-stage renal disease, on hemodialysis as needed --> Monitor. S/P HD. #. Tachycardia, to be seen by Cardiology Service, isolated T-wave and ST- segment depression in V6. --> HR has been ~80-90bpm --> S/P Chest CT -- Evidence of worsening CHF/interstitial edema. --> Monitor for improvement. #. Elevated BNP, potentially related to underlying CKD. #. Cardiomegaly. S/P Chest Xray --> Persistent but slightly decreased size of known right lung cavitary lesion. --> Persistent extensive interstitial and bilateral airspace opacities. Subjective Date patient seen: Jun 22, 2017 Constitutional: Denies: no symptoms, chills, diaphoresis, fever, malaise, weakness, other HEENT: Denies: no symptoms, eye pain, blurred vision, tearing, double vision, ear pain, ear discharge, nose pain, nose congestion, throat pain, throat swelling, mouth pain, mouth swelling, other Cardiovascular: Denies: no symptoms, chest pain, edema, irregular heart rate, lightheadedness, palpitations, syncope, other Respiratory: Denies: no symptoms, cough, orthopnea, shortness of breath, SOB with excertion, SOB at rest, sputum, stridor, wheezing, other Gastrointestinal/Abdominal: Denies: no symptoms, abdomen distended, abdominal pain, black stools, tarry stools, blood in stool, constipated, diarrhea, difficulty swallowing, nausea, poor appetite, poor fluid intake, rectal bleeding , vomiting, other Genitourinary: Denies: no symptoms, burning, discharge, frequency, flank pain, hematuria, incontinence, pain, urgency, other Neurologic/Psychiatric: Denies: no symptoms, anxiety, depressed, emotional problems, headache, numbness, paresthesia, pre-existing deficit, seizure, tingling, tremors, weakness, other Hematologic/Lymphatic: Reports: anemia Allergies: Coded Allergies: No Known Allergies (Unverified , 10/24/15) Subjective No major events overnight. H/H low. Objective Last 24 Hour Vital Signs Date Time Temp Pulse Resp B/P (MAP) Pulse Ox O2 Delivery O2 Flow Rate FiO2 06/22/17 20:38 67 121/81 06/22/17 20:00 98.2 67 20 121/81 96 Nasal Cannula 98.2 06/22/17 19:02 96 Nasal Cannula 3.0 32 06/22/17 19:02 Nasal Cannula 3.0 32 06/22/17 18:37 98.0 06/22/17 18:33 98.0 06/22/17 17:34 131/77 06/22/17 17:34 98.0 06/22/17 16:00 Nasal Cannula 4.0 06/22/17 16:00 98.0 64 20 131/71 94 98.0 06/22/17 15:03 98.2 06/22/17 14:33 98.2 06/22/17 12:00 Nasal Cannula 4.0 06/22/17 11:58 98.2 74 20 131/77 93 98.2 06/22/17 11:55 131/77 06/22/17 10:33 98.1 06/22/17 09:12 123/69 06/22/17 09:12 98.1 06/22/17 09:11 64 123/69 06/22/17 09:00 Venturi Mask 6.0 35 06/22/17 09:00 96 Venturi Mask 6.0 35 06/22/17 08:00 98.1 59 20 123/69 98.1 06/22/17 08:00 Nasal Cannula 4.0 06/22/17 05:06 79 16 99 Facial 40 06/22/17 04:00 97.0 68 20 117/83 100 97.0 06/22/17 04:00 Nasal Cannula 4.0 06/22/17 03:47 78 19 99 Facial 40 06/22/17 00:44 72 18 99 Facial 40 06/22/17 00:00 Nasal Cannula 4.0 06/22/17 00:00 97.0 66 18 133/91 100 97.0 06/21/17 23:18 83 16 98 Facial 40 Intake and Output 06/21/17 06/22/17 19:00 07:00 Intake Total 830 ml 655 ml Output Total 150 ml 0 ml Balance 680 ml 655 ml Intake Oral 780 ml IV Total 50 ml 655 ml Output Urine Total 150 ml 0 ml Stool Total 0 ml # Voids 2 # Bowel Movements 1 Laboratory Tests 06/22/17 05:45: White Blood Count 4.9, Red Blood Count 2.41L, Hemoglobin 7.2L, Hematocrit 22.3L , Mean Corpuscular Volume 93, Mean Corpuscular Hemoglobin 30.1, Mean Corpuscular Hemoglobin Concent 32.5, Red Cell Distribution Width 17.3H, Platelet Count 132L, Mean Platelet Volume 7.0, Neutrophils (%) (Auto) , Lymphocytes (%) (Auto) , Monocytes (%) (Auto) , Eosinophils (%) (Auto) , Basophils (%) (Auto) , Differential Total Cells Counted 100, Neutrophils % ( Manual) 50, Lymphocytes % (Manual) 34, Monocytes % (Manual) 14H, Eosinophils % ( Manual) 2, Basophils % (Manual) 0, Band Neutrophils 0, Platelet Estimate DecreasedL, Platelet Morphology Normal, Polychromasia 1+, Hypochromasia 1+, Anisocytosis 2+, Sodium Level 134L, Potassium Level 4.2, Chloride Level 94L, Carbon Dioxide Level 35H, Anion Gap 6, Blood Urea Nitrogen 50H, Creatinine 11.6H , Estimat Glomerular Filtration Rate 5.5, Glucose Level 121H, Calcium Level 8.4L Height (Feet): 5 Height (Inches): 7.00 Weight (Pounds): 227 General Appearance: no apparent distress Respiratory/Chest: decreased breath sounds Abdomen: soft Edema: trace edema Irving Parker MD Jun 22, 2017 22:41
[2017-06-23] VITALS (8 sets, daily range): BP systolic 115–159; BP diastolic 69–84
[2017-06-23] MEDS: ALPRAZolam 0.5mg tab ORAL PRN ×2 (00:47→18:28)
[2017-06-23] MEDS: Morphine Sulfate 2mg/ml Inj IVP PRN ×5 (02:32→22:42)
[2017-06-23] MEDS: metroNIDAZOLE 500mg tab ORAL SCH ×3 (05:47→21:33)
[2017-06-23 06:59] LABS: HEMATOCRIT 22.3 % (42.0-52.0); HEMOGLOBIN 7.5 G/DL (14.2-18.0); MEAN CORPUSCULAR VOLUME 92 FL (80-99); PLATELET COUNT 122 K/UL (150-450); RED BLOOD COUNT 2.43 M/UL (4.70-6.10); RED CELL DISTRIBUTION WIDTH 16.7 % (11.6-14.8); WHITE BLOOD COUNT 5.6 K/UL (4.8-10.8)
[2017-06-23 07:01] LABS: ANION GAP 5 mmol/L (5-15); BLOOD UREA NITROGEN 61 mg/dL (7-18); CALCIUM 8.5 MG/DL (8.5-10.1); CARBON DIOXIDE 34 MMOL/L (21-32); CHLORIDE 94 MMOL/L (98-107); CREATININE 12.9 MG/DL (0.55-1.30); POTASSIUM 4.7 MMOL/L (3.5-5.1); SODIUM 133 MMOL/L (136-145)
[2017-06-23] MEDS: Carvedilol 25mg Tab ORAL SCH ×2 (09:17→21:00)
[2017-06-23] MEDS: Tobradex Opth Oint 3.5gm BOTH EYES SCH ×4 (09:17→21:00)
[2017-06-23] MEDS: Lisinopril 20mg tab ORAL SCH ×2 (09:17→18:22)
[2017-06-23] MEDS: Docusate 100mg cap ORAL SCH ×3 (09:18→18:22)
--- NOTE | 2017-06-23 11:00 | General Progress Note ---
Assessment/Plan Assessment/Plan Assessment - Anemia - OB (+) Stool - R/O TB - ESRD/HD - DM - HTN - COPD - gallstones - RUQ TTP and improving LFT - abnormal GB ultrasound - Hepatitis C (+) Recommendations - PO as tolerated - monitor LFT - transfuse PRN - Acid blockade - Defer EGD/Colon a this time Subjective Allergies: Coded Allergies: No Known Allergies (Unverified , 10/24/15) Subjective above noted no events overnight denies abd pain tolerating po sitting up Objective Last 24 Hour Vital Signs Date Time Temp Pulse Resp B/P (MAP) Pulse Ox O2 Delivery O2 Flow Rate FiO2 06/23/17 09:17 131/69 06/23/17 09:17 70 131/69 06/23/17 08:45 94 Nasal Cannula 4.0 36 06/23/17 08:45 Nasal Cannula 4.0 36 06/23/17 07:31 97.1 70 20 131/69 94 97.1 06/23/17 04:00 96.8 71 19 115/72 96.8 06/23/17 01:23 74 18 98 Facial 40 06/23/17 00:00 Nasal Cannula 4.0 06/23/17 00:00 98.1 76 19 143/76 97 98.1 06/22/17 20:38 67 121/81 06/22/17 20:00 Nasal Cannula 4.0 06/22/17 20:00 98.2 67 20 121/81 96 Nasal Cannula 98.2 06/22/17 19:02 96 Nasal Cannula 3.0 32 06/22/17 19:02 Nasal Cannula 3.0 32 06/22/17 18:37 98.0 06/22/17 18:33 98.0 06/22/17 17:34 131/77 06/22/17 17:34 98.0 06/22/17 16:00 Nasal Cannula 4.0 06/22/17 16:00 98.0 64 20 131/71 94 98.0 06/22/17 15:03 98.2 06/22/17 14:33 98.2 06/22/17 12:00 Nasal Cannula 4.0 06/22/17 11:58 98.2 74 20 131/77 93 98.2 06/22/17 11:55 131/77 Intake and Output 06/22/17 06/23/17 19:00 07:00 Intake Total 660 ml 595 ml Balance 660 ml 595 ml Intake Oral 360 ml IV Total 300 ml 595 ml # Voids 1 # Bowel Movements 1 Laboratory Tests 06/23/17 05:45: White Blood Count 5.6, Red Blood Count 2.43L, Hemoglobin 7.5L, Hematocrit 22.3L , Mean Corpuscular Volume 92, Mean Corpuscular Hemoglobin 30.8, Mean Corpuscular Hemoglobin Concent 33.7, Red Cell Distribution Width 16.7H, Platelet Count 122L, Mean Platelet Volume 7.4, Neutrophils (%) (Auto) , Lymphocytes (%) (Auto) , Monocytes (%) (Auto) , Eosinophils (%) (Auto) , Basophils (%) (Auto) , Differential Total Cells Counted 100, Neutrophils % ( Manual) 50, Lymphocytes % (Manual) 23, Monocytes % (Manual) 26H, Eosinophils % ( Manual) 1, Basophils % (Manual) 0, Band Neutrophils 0, Platelet Estimate DecreasedL, Platelet Morphology Normal, Polychromasia 1+, Hypochromasia 1+, Anisocytosis 1+, Sodium Level 133L, Potassium Level 4.7, Chloride Level 94L, Carbon Dioxide Level 34H, Anion Gap 5, Blood Urea Nitrogen 61H, Creatinine 12.9H , Estimat Glomerular Filtration Rate 4.8, Glucose Level 96, Calcium Level 8.5 Height (Feet): 5 Height (Inches): 7.00 Weight (Pounds): 224 Objective WDWN AA Man NCAT supple CTA RRR Soft mildly distended, (+) improved RUQ TTP No edema PERCY JOYNER Jun 23, 2017 11:00
[2017-06-23] MEDS: Nitroglycerin Patch 0.4mg TDERMAL SCH (11:24)
--- NOTE | 2017-06-23 11:56 | Internal Med Progress Note ---
Subjective Date of Service: Jun 23, 2017 Physician Name Pires,Zoey Attending Physician Chaitanya Weinstein MD Current Medications Medications (Trade) Dose Ordered Sig/Jose Route PRN Reason Start Time Stop Time Status Last Admin Dose Admin Acetaminophen (Tylenol) 650 mg Q4H PRN RECTAL Mild Pain (Pain Scale 1-3) 06/16/17 19:00 07/09/17 18:59 Alprazolam (Xanax) 2 mg DAILYPRN PRN ORAL Agitation 06/16/17 18:45 06/23/17 18:44 06/23/17 00:47 Amikacin Sulfate 950 mg/Sodium Chloride 113.8 ml @ 227.6 mls/ hr FRI-FRI-FRI IV 06/18/17 21:00 06/25/17 23:59 06/20/17 22:28 Carisoprodol (Soma) 350 mg BID ORAL 06/17/17 20:00 07/15/17 19:59 06/23/17 09:17 Carisoprodol (Soma) 350 mg Q6H PRN ORAL MUSCLE SPASMS 06/16/17 19:00 07/14/17 18:59 06/20/17 23:55 Carvedilol (Coreg) 25 mg EVERY 12 HOURS ORAL 06/16/17 21:00 07/04/17 11:29 06/23/17 09:17 Ceftriaxone Sodium 2 gm/ Dextrose 55 ml @ 110 mls/hr Q24H IVPB 06/21/17 20:00 06/28/17 19:59 06/22/17 20:39 Chlorhexidine Gluconate (Mireille-Hex 2%) 1 applic DAILY@2000 TOPIC 06/16/17 20:00 07/05/17 19:59 06/22/17 20:39 Clonidine HCl (Catapres Tab) 0.1 mg Q4H PRN ORAL bp over 160 syst 06/16/17 19:00 07/03/17 18:59 Dextrose 1,000 ml @ 50 mls/hr Q20H IV 06/16/17 19:00 07/14/17 18:59 06/23/17 11:24 Dextrose (Dextrose 50%) STAT PRN IV Hypoglycemia 06/16/17 19:00 07/14/17 18:59 Docusate Sodium (Colace) 100 mg THREE TIMES A DAY ORAL 06/17/17 20:00 07/03/17 19:59 06/23/17 09:18 Ethambutol HCl (Myambutol) 1,000 mg 3XW ORAL 06/18/17 09:00 07/18/17 23:59 06/23/17 09:18 Levofloxacin (Levaquin) 750 mg EVERY OTHER DAY@2000 ORAL 06/17/17 20:00 06/24/17 19:59 06/21/17 20:20 Lisinopril (Prinivil) 20 mg BID ORAL 06/17/17 09:00 07/04/17 08:59 06/23/17 09:17 Meperidine HCl (Demerol) 25 mg ONCE PRN IM RIGOR AFTER AMPHO DOSE 06/16/17 19:00 06/23/17 18:59 Metronidazole (Flagyl) 500 mg Q8HR ORAL 06/17/17 22:00 06/24/17 21:59 06/23/17 05:47 Morphine Sulfate (Morphine Sulfate) 2 mg Q4H PRN IVP Moderate Pain (Pain Scale 4-6) 06/17/17 14:45 06/24/17 14:44 06/23/17 10:33 Nitroglycerin (Ntg) 0.4 mg Q5M PRN SL Prn Chest Pain 06/16/17 18:15 07/04/17 09:14 Nitroglycerin (Ntg) 1 patch Q24H TDERMAL 06/17/17 11:30 07/04/17 11:29 06/23/17 11:24 Ondansetron HCl (Zofran) 4 mg Q6H PRN IVP Nausea & Vomiting 06/16/17 18:30 07/14/17 18:29 Pantoprazole (Protonix) 40 mg ACBREAKFAST ORAL 06/17/17 06:30 07/15/17 06:29 06/23/17 05:47 Polyethylene Glycol (Miralax) 17 gm DAILYPRN PRN ORAL Constipation 06/16/17 18:30 07/14/17 18:29 Promethazine HCl/ Codeine (Phenergan with Codeine) 5 ml Q4H PRN ORAL For Cough 06/16/17 18:30 07/05/17 18:29 Sevelamer Carbonate (Renvela) 2,400 mg THREE TIMES A DAY ORAL 06/16/17 18:45 07/16/17 18:44 06/23/17 09:18 Tobramycin/ Dexamethasone (Tobradex Opth Oint) 1 applic FOUR TIMES A DAY BOTH EYES 06/22/17 18:00 06/28/17 23:59 06/23/17 09:17 Allergies: Coded Allergies: No Known Allergies (Unverified , 10/24/15) ROS Limited/Unobtainable: No Constitutional: Reports: no symptoms HEENT: Reports: no symptoms Cardiovascular: Reports: no symptoms Respiratory: Reports: shortness of breath Gastrointestinal/Abdominal: Reports: no symptoms Genitourinary: Reports: no symptoms Neurologic/Psychiatric: Reports: no symptoms Subjective 57 YO M admitted with chest pain and shortness of breath. Now pneumonia and candelaria heart failure. Tolerating nasal canula. Cover for Int Misbah-Dr Weinstein. C/O conjunctivitis Objective Last Vital Signs Date Time Temp Pulse Resp B/P (MAP) Pulse Ox O2 Delivery O2 Flow Rate FiO2 06/23/17 11:24 131/69 06/23/17 09:17 70 06/23/17 08:45 94 Nasal Cannula 4.0 36 06/23/17 07:31 97.1 20 97.1 Laboratory Tests Test 06/23/17 05:45 White Blood Count 5.6 K/UL (4.8-10.8) Red Blood Count 2.43 M/UL (4.70-6.10) L Hemoglobin 7.5 G/DL (14.2-18.0) L Hematocrit 22.3 % (42.0-52.0) L Mean Corpuscular Volume 92 FL (80-99) Mean Corpuscular Hemoglobin 30.8 PG (27.0-31.0) Mean Corpuscular Hemoglobin Concent 33.7 G/DL (32.0-36.0) Red Cell Distribution Width 16.7 % (11.6-14.8) H Platelet Count 122 K/UL (150-450) L Mean Platelet Volume 7.4 FL (6.5-10.1) Neutrophils (%) (Auto) % (45.0-75.0) Lymphocytes (%) (Auto) % (20.0-45.0) Monocytes (%) (Auto) % (1.0-10.0) Eosinophils (%) (Auto) % (0.0-3.0) Basophils (%) (Auto) % (0.0-2.0) Differential Total Cells Counted 100 Neutrophils % (Manual) 50 % (45-75) Lymphocytes % (Manual) 23 % (20-45) Monocytes % (Manual) 26 % (1-10) H Eosinophils % (Manual) 1 % (0-3) Basophils % (Manual) 0 % (0-2) Band Neutrophils 0 % (0-8) Platelet Estimate Decreased L Platelet Morphology Normal Polychromasia 1+ Hypochromasia 1+ Anisocytosis 1+ Sodium Level 133 MMOL/L (136-145) L Potassium Level 4.7 MMOL/L (3.5-5.1) Chloride Level 94 MMOL/L (98-107) L Carbon Dioxide Level 34 MMOL/L (21-32) H Anion Gap 5 mmol/L (5-15) Blood Urea Nitrogen 61 mg/dL (7-18) H Creatinine 12.9 MG/DL (0.55-1.30) H Estimat Glomerular Filtration Rate 4.8 mL/min (>60) Glucose Level 96 MG/DL (74-106) Calcium Level 8.5 MG/DL (8.5-10.1) Intake and Output 06/22/17 06/23/17 19:00 07:00 Intake Total 660 ml 595 ml Balance 660 ml 595 ml Intake Oral 360 ml IV Total 300 ml 595 ml # Voids 1 # Bowel Movements 1 Objective General Appearance: WD/WN, alert, moderate distress EENT: PERRL/EOMI, normal ENT inspection Neck: non-tender, normal alignment, supple, normal inspection Cardiovascular: normal peripheral pulses, normal rate, regular rhythm, no gallop/murmur, no JVD Respiratory/Chest: Nasal canula; respiratory distress, crackles/rales, rhonchi - bilaterally, expiratory wheezing Abdomen: normal bowel sounds, non tender, soft, no organomegaly, no mass Extremities: normal range of motion 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 Currently on nasal canula. See pulmonay note. (2) Pleuritic chest pain (3) Hemoptysis Assessment & Plan: Due to pneumonia (4) Pneumonia Assessment & Plan: RUL and cavitary. Concerning for TB. Await AFB cultures- see ID consult. Continue vanco and ethambutol per ID (5) Shortness of breath (6) ESRD (end stage renal disease) on dialysis Assessment & Plan: See nephrology note. Hemodialysis 06/14/17 per nephrology (7) Hyperkalemia Assessment & Plan: Due to renal failure. Hemodialysis 06/12/17 per nephrology (8) COPD (chronic obstructive pulmonary disease) (9) HTN (hypertension) Assessment & Plan: Continue coreg and lisinopril. (10) CHF (congestive heart failure) (11) Elevated troponin Assessment & Plan: ?due to renal failure? See cardiology note. (12) Intractable abdominal pain Assessment & Plan: See surgery note. Await CT abdomen (13) Conjunctivitis Assessment & Plan: start tobramycin Status: not improved ZOEY PIRES Jun 23, 2017 11:56
--- NOTE | 2017-06-23 12:17 | Nephrology Progress Note ---
Assessment/Plan Problem List: (1) ESRD (end stage renal disease) on dialysis (2) Shortness of breath (3) Anemia Assessment worsenning Anemia ESRD , missed HD , admitted with high K and pulmonary edema Acute respiratory distress due to volume overload elevated troponin r/o ACS h/o COPD ? exacerbation HTN urgency Cardiomyopathy L AICD anemia of chronic kidney disease Hx of CVA Plan Plan: Low H&H - consider transfusion HD next 06/23 Transfused Phos binders BP meds adjustment Optimize cardiac status per orders Subjective ROS Limited/Unobtainable: No Constitutional: Reports: malaise Objective Objective Last 24 Hour Vital Signs Date Time Temp Pulse Resp B/P (MAP) Pulse Ox O2 Delivery O2 Flow Rate FiO2 06/23/17 11:57 98.2 71 20 115/69 91 98.2 06/23/17 11:24 131/69 06/23/17 09:17 131/69 06/23/17 09:17 70 131/69 06/23/17 08:45 94 Nasal Cannula 4.0 36 06/23/17 08:45 Nasal Cannula 4.0 36 06/23/17 07:31 97.1 70 20 131/69 94 97.1 06/23/17 04:00 96.8 71 19 115/72 96.8 06/23/17 01:23 74 18 98 Facial 40 06/23/17 00:00 Nasal Cannula 4.0 06/23/17 00:00 98.1 76 19 143/76 97 98.1 06/22/17 20:38 67 121/81 06/22/17 20:00 Nasal Cannula 4.0 06/22/17 20:00 98.2 67 20 121/81 96 Nasal Cannula 98.2 06/22/17 19:02 96 Nasal Cannula 3.0 32 06/22/17 19:02 Nasal Cannula 3.0 32 06/22/17 18:37 98.0 06/22/17 18:33 98.0 06/22/17 17:34 131/77 06/22/17 17:34 98.0 06/22/17 16:00 Nasal Cannula 4.0 06/22/17 16:00 98.0 64 20 131/71 94 98.0 06/22/17 15:03 98.2 06/22/17 14:33 98.2 Intake and Output 06/22/17 06/23/17 19:00 07:00 Intake Total 660 ml 595 ml Balance 660 ml 595 ml Intake Oral 360 ml IV Total 300 ml 595 ml # Voids 1 # Bowel Movements 1 Laboratory Tests 06/23/17 05:45: White Blood Count 5.6, Red Blood Count 2.43L, Hemoglobin 7.5L, Hematocrit 22.3L , Mean Corpuscular Volume 92, Mean Corpuscular Hemoglobin 30.8, Mean Corpuscular Hemoglobin Concent 33.7, Red Cell Distribution Width 16.7H, Platelet Count 122L, Mean Platelet Volume 7.4, Neutrophils (%) (Auto) , Lymphocytes (%) (Auto) , Monocytes (%) (Auto) , Eosinophils (%) (Auto) , Basophils (%) (Auto) , Differential Total Cells Counted 100, Neutrophils % ( Manual) 50, Lymphocytes % (Manual) 23, Monocytes % (Manual) 26H, Eosinophils % ( Manual) 1, Basophils % (Manual) 0, Band Neutrophils 0, Platelet Estimate DecreasedL, Platelet Morphology Normal, Polychromasia 1+, Hypochromasia 1+, Anisocytosis 1+, Sodium Level 133L, Potassium Level 4.7, Chloride Level 94L, Carbon Dioxide Level 34H, Anion Gap 5, Blood Urea Nitrogen 61H, Creatinine 12.9H , Estimat Glomerular Filtration Rate 4.8, Glucose Level 96, Calcium Level 8.5 Height (Feet): 5 Height (Inches): 7.00 Weight (Pounds): 224 General Appearance: no apparent distress Cardiovascular: regular rhythm Respiratory/Chest: decreased breath sounds Abdomen: distended Objective no change LIAM MONTLEONGO 19, 2018 12:17
--- NOTE | 2017-06-23 17:41 | Infectious Diseases Prog Note ---
Assessment/Plan Assessment/Plan A: Cavitary PNA. SCx: Neg ( m/l necrotizing Pneum, less likely fungal and doubt TB ) -CXR 06/21: Persistent but slightly decreased size of known right lung cavitary lesion. Persistent extensive interstitial and bilateral airspace opacities. -sp cx 06/18 PsA (singh S) + Providencia stuarti (S Ceftriaxone, R Cipro) Rsp status improved but on 06/[address] his condition worsen T-SPOT :Neg AFB x 3 : Neg MTB PCR x2 : neg cryptococcus Ag, Histoplams mycelial Ab , Blastomyces ab : neg ; histoplasma yeast ab (not able to be done due to anticomplemenatry activity) -Cocci, Asp ag, fungitell pending 06/21 Xray : improvement of cavity CT chest 06/15: Slightly smaller (6 cm diameter ) but mostly unchanged cavitary lesion in the right lung, previously thought to represent a cavitating inflammatory process. Lung abscess is certainly a possibility. Fairly extensive bilateral pulmonary parenchymal consolidation, slightly increased from previous exam of 06/05/2017. Likely a combination of pulmonary edema and pneumonia. Small right and trace left pleural effusion, new/increased from the previous study. CT 06/05: 7.8 x 5.3 x 6.6 cm dense opacity in the posterior inferior right upper lobe with a central cavitation. Chest x-ray : right mid lung infiltrate, possible cavitation Rule out tuberculosis, fungal infection, or necrotizing pneumonia. CRP 14 Influenza negative Low-grade fever, SP Status post leukocytosis. Transaminitis ,? 2/2 Hep C cirrhosis- no active Hep C as VL not detected -CT abd/p: Evidence of hepatic cirrhosis. Hepatosplenomegaly. evidence of generalized anasarca, with pleural fluid and generalized subcutaneous edema. Cholelithiasis, also previously reported. Possible diverticulosis. No evidence of diverticulitis US Abd : Cholelithiasis. There is gallbladder wall thickening, likely related to hemodynamic abnormalities Splenomegaly. Evidence of hepatic cirrhosis HIV : NEG Hep Panel B neg , C Ab : +ve , VL not detected leukopenia and TCP 2/2 splenomegaly Seizure disorder History of CVA History of pacemaker placement Hyperlipidemia Hypertension COPD/asthma End-stage renal disease, on hemodialysis Diabetes Anxiety Anemia Echo, ejection fraction 45% to 50%. PLAN: Continue Rocephin d # 3/5-7 for possible superimposed Providencia PNA Switch AmphoB # 8 (fell off on 06/20) to PO Voriconazole for possible Aspergillosispending cultures and fungal serologies -monitor LFTs, QTc -watch for drug-drug interactions -Protonix and Carisoprodol dose may need to be decreased as voriconazole can raise level of these (discussed with pharmacist) -Continue Flagyl (in addition with Levaquin will provide anaerobic coverage for possible aspiration/cavitary and now PsA PNA as no isolation of resistant organisms); abx d# 21/28 Continue empiric Ethambutol , amikacin d# 10 and Levaquin d# 11 ( TB Control recs to start TB Rx, doubt that this is needed at his time pt has pt improved initially, wups so far neg for TB, has increased of LFT , ) -CT guided lung biopsy could be done to aid on diagnosis 06/17 SP IV Vancomycin #14, Meropenem #5 / SP Zosyn d# 10 3/ SP Zithromax D# 6 f/u sputum culture (, fungal, and AFB x3). f/u Coccidioidal ,Galactomannan and Fungitell, Histoplasma ag urine Airborne isolation for now Disposition per Dept of Public Health Subjective Allergies: Coded Allergies: No Known Allergies (Unverified , 10/24/15) Subjective afebrile no leukocytosis LFTs improving fungal serologies pending Objective Vital Signs Last 24 Hour Vital Signs Date Time Temp Pulse Resp B/P (MAP) Pulse Ox O2 Delivery O2 Flow Rate FiO2 06/23/17 11:57 98.2 71 20 115/69 91 98.2 06/23/17 11:24 131/69 06/23/17 09:17 131/69 06/23/17 09:17 70 131/69 06/23/17 08:45 94 Nasal Cannula 4.0 36 06/23/17 08:45 Nasal Cannula 4.0 36 06/23/17 07:31 97.1 70 20 131/69 94 97.1 06/23/17 04:00 96.8 71 19 115/72 96.8 06/23/17 01:23 74 18 98 Facial 40 06/23/17 00:00 Nasal Cannula 4.0 06/23/17 00:00 98.1 76 19 143/76 97 98.1 06/22/17 20:38 67 121/81 06/22/17 20:00 Nasal Cannula 4.0 06/22/17 20:00 98.2 67 20 121/81 96 Nasal Cannula 98.2 06/22/17 19:02 96 Nasal Cannula 3.0 32 06/22/17 19:02 Nasal Cannula 3.0 32 06/22/17 18:37 98.0 06/22/17 18:33 98.0 Height (Feet): 5 Height (Inches): 7.00 Weight (Pounds): 224 Objective General Appearance: WD/WN, alert, moderate distress EENT: PERRL/EOMI, normal ENT inspection Neck: non-tender, normal alignment, supple, normal inspection Cardiovascular: normal peripheral pulses, normal rate, regular rhythm, no gallop/murmur, no JVD Respiratory/Chest: Non rebreather; respiratory distress, crackles/rales, rhonchi - bilaterally, expiratory wheezing Abdomen: normal bowel sounds, non tender, soft, no organomegaly, no mass Extremities: normal range of motion 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, no motor/sensory deficits Skin: normal pigmentation, warm/dry Laboratory Tests Test 06/23/17 05:45 White Blood Count 5.6 K/UL (4.8-10.8) Red Blood Count 2.43 M/UL (4.70-6.10) L Hemoglobin 7.5 G/DL (14.2-18.0) L Hematocrit 22.3 % (42.0-52.0) L Mean Corpuscular Volume 92 FL (80-99) Mean Corpuscular Hemoglobin 30.8 PG (27.0-31.0) Mean Corpuscular Hemoglobin Concent 33.7 G/DL (32.0-36.0) Red Cell Distribution Width 16.7 % (11.6-14.8) H Platelet Count 122 K/UL (150-450) L Mean Platelet Volume 7.4 FL (6.5-10.1) Neutrophils (%) (Auto) % (45.0-75.0) Lymphocytes (%) (Auto) % (20.0-45.0) Monocytes (%) (Auto) % (1.0-10.0) Eosinophils (%) (Auto) % (0.0-3.0) Basophils (%) (Auto) % (0.0-2.0) Differential Total Cells Counted 100 Neutrophils % (Manual) 50 % (45-75) Lymphocytes % (Manual) 23 % (20-45) Monocytes % (Manual) 26 % (1-10) H Eosinophils % (Manual) 1 % (0-3) Basophils % (Manual) 0 % (0-2) Band Neutrophils 0 % (0-8) Platelet Estimate Decreased L Platelet Morphology Normal Polychromasia 1+ Hypochromasia 1+ Anisocytosis 1+ Sodium Level 133 MMOL/L (136-145) L Potassium Level 4.7 MMOL/L (3.5-5.1) Chloride Level 94 MMOL/L (98-107) L Carbon Dioxide Level 34 MMOL/L (21-32) H Anion Gap 5 mmol/L (5-15) Blood Urea Nitrogen 61 mg/dL (7-18) H Creatinine 12.9 MG/DL (0.55-1.30) H Estimat Glomerular Filtration Rate 4.8 mL/min (>60) Glucose Level 96 MG/DL (74-106) Calcium Level 8.5 MG/DL (8.5-10.1) Current Medications Medications (Trade) Dose Ordered Sig/Jose Route PRN Reason Start Time Stop Time Status Last Admin Dose Admin Acetaminophen (Tylenol) 650 mg Q4H PRN RECTAL Mild Pain (Pain Scale 1-3) 06/16/17 19:00 07/09/17 18:59 Alprazolam (Xanax) 2 mg DAILYPRN PRN ORAL Agitation 06/16/17 18:45 06/23/17 18:44 06/23/17 00:47 Amikacin Sulfate 950 mg/Sodium Chloride 113.8 ml @ 227.6 mls/ hr MON-WED-FRI IV 06/18/17 21:00 06/25/17 23:59 06/20/17 22:28 Carisoprodol (Soma) 350 mg BID ORAL 06/17/17 20:00 07/15/17 19:59 06/23/17 09:17 Carisoprodol (Soma) 350 mg Q6H PRN ORAL MUSCLE SPASMS 06/16/17 19:00 07/14/17 18:59 06/20/17 23:55 Carvedilol (Coreg) 25 mg EVERY 12 HOURS ORAL 06/16/17 21:00 07/04/17 11:29 06/23/17 09:17 Ceftriaxone Sodium 2 gm/ Dextrose 55 ml @ 110 mls/hr Q24H IVPB 06/21/17 20:00 06/28/17 19:59 06/22/17 20:39 Chlorhexidine Gluconate (Mireille-Hex 2%) 1 applic DAILY@2000 TOPIC 06/16/17 20:00 07/05/17 19:59 06/22/17 20:39 Clonidine HCl (Catapres Tab) 0.1 mg Q4H PRN ORAL bp over 160 syst 06/16/17 19:00 07/03/17 18:59 Dextrose 1,000 ml @ 50 mls/hr Q20H IV 06/16/17 19:00 07/14/17 18:59 06/23/17 11:24 Dextrose (Dextrose 50%) STAT PRN IV Hypoglycemia 06/16/17 19:00 07/14/17 18:59 Docusate Sodium (Colace) 100 mg THREE TIMES A DAY ORAL 06/17/17 20:00 07/03/17 19:59 06/23/17 13:55 Ethambutol HCl (Myambutol) 1,000 mg 3XW ORAL 06/18/17 09:00 07/18/17 23:59 06/23/17 09:18 Levofloxacin (Levaquin) 750 mg EVERY OTHER DAY@1999 ORAL 06/17/17 20:00 06/24/17 19:59 06/21/17 20:20 Lisinopril (Prinivil) 20 mg BID ORAL 06/17/17 09:00 07/04/17 08:59 06/23/17 09:17 Meperidine HCl (Demerol) 25 mg ONCE PRN IM RIGOR AFTER AMPHO DOSE 06/16/17 19:00 06/23/17 18:59 Metronidazole (Flagyl) 500 mg Q8HR ORAL 06/17/17 22:00 06/24/17 21:59 06/23/17 13:55 Morphine Sulfate (Morphine Sulfate) 2 mg Q4H PRN IVP Moderate Pain (Pain Scale 4-6) 06/17/17 14:45 06/24/17 14:44 06/23/17 15:44 Nitroglycerin (Ntg) 0.4 mg Q5M PRN SL Prn Chest Pain 06/16/17 18:15 07/04/17 09:14 Nitroglycerin (Ntg) 1 patch Q24H TDERMAL 06/17/17 11:30 07/04/17 11:29 06/23/17 11:24 Ondansetron HCl (Zofran) 4 mg Q6H PRN IVP Nausea & Vomiting 06/16/17 18:30 07/14/17 18:29 Pantoprazole (Protonix) 40 mg ACBREAKFAST ORAL 06/17/17 06:30 07/15/17 06:29 06/23/17 05:47 Polyethylene Glycol (Miralax) 17 gm DAILYPRN PRN ORAL Constipation 06/16/17 18:30 07/14/17 18:29 Promethazine HCl/ Codeine (Phenergan with Codeine) 5 ml Q4H PRN ORAL For Cough 06/16/17 18:30 07/05/17 18:29 Sevelamer Carbonate (Renvela) 2,400 mg THREE TIMES A DAY ORAL 06/16/17 18:45 07/16/17 18:44 06/23/17 13:55 Tobramycin/ Dexamethasone (Tobradex Opth Oint) 1 applic FOUR TIMES A DAY BOTH EYES 06/22/17 18:00 06/28/17 23:59 06/23/17 13:55 Aleja Crocker M.D. Jun 23, 2017 17:41
[2017-06-23] MEDS: cefTRIAXone 2 GM in D5W 55 ML IVPB SCH (20:00)
[2017-06-23] MEDS: Dyna-Hex 2% Top Sol 2oz TOPIC SCH (20:00)
--- NOTE | 2017-06-23 22:08 | Pulmonology Progress Note ---
Assessment/Plan Problems: (1) Respiratory failure (2) Pneumonia (3) Hemoptysis (4) Anemia (5) ESRD (end stage renal disease) on dialysis (6) HTN (hypertension) Assessment/Plan med/surg slowly improving cxr slighly better on venturi mask clinically better HD by counselor dormitory hold heparin for low PLT prbc prn on anti TB meds voriconazole started all notes reviewed f/u wbc and cultures repeat CT in one week or so Subjective ROS Limited/Unobtainable: No Constitutional: Reports: no symptoms HEENT: Repors: no symptoms Allergies: Coded Allergies: No Known Allergies (Unverified , 10/24/15) Objective Last 24 Hour Vital Signs Date Time Temp Pulse Resp B/P (MAP) Pulse Ox O2 Delivery O2 Flow Rate FiO2 06/23/17 21:00 66 159/84 06/23/17 18:22 115/69 06/23/17 16:00 98.1 68 20 128/72 97 98.1 06/23/17 11:57 98.2 71 20 115/69 91 98.2 06/23/17 11:24 131/69 06/23/17 09:17 131/69 06/23/17 09:17 70 131/69 06/23/17 08:45 94 Nasal Cannula 4.0 36 06/23/17 08:45 Nasal Cannula 4.0 36 06/23/17 07:31 97.1 70 20 131/69 94 97.1 06/23/17 04:00 96.8 71 19 115/72 96.8 06/23/17 01:23 74 18 98 Facial 40 06/23/17 00:00 Nasal Cannula 4.0 06/23/17 00:00 98.1 76 19 143/76 97 98.1 Intake and Output 06/22/17 06/23/17 19:00 07:00 Intake Total 660 ml 595 ml Balance 660 ml 595 ml Intake Oral 360 ml IV Total 300 ml 595 ml # Voids 1 # Bowel Movements 1 Objective General Appearance: WD/WN HEENT: normocephalic, atraumatic, anicteric Respiratory/Chest: loud rhonchi Cardiovascular: normal peripheral pulses, normal rate, regular rhythm Abdomen: normal bowel sounds, soft, non tender, no organomegaly Genitourinary: normal external genitalia Extremities: no cyanosis Skin: no rash, no lesions 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, no motor/sensory deficits Lymphatic: no neck adenopathy, no groin adenopathy Laboratory Tests 06/23/17 05:45: White Blood Count 5.6, Red Blood Count 2.43L, Hemoglobin 7.5L, Hematocrit 22.3L , Mean Corpuscular Volume 92, Mean Corpuscular Hemoglobin 30.8, Mean Corpuscular Hemoglobin Concent 33.7, Red Cell Distribution Width 16.7H, Platelet Count 122L, Mean Platelet Volume 7.4, Neutrophils (%) (Auto) , Lymphocytes (%) (Auto) , Monocytes (%) (Auto) , Eosinophils (%) (Auto) , Basophils (%) (Auto) , Differential Total Cells Counted 100, Neutrophils % ( Manual) 50, Lymphocytes % (Manual) 23, Monocytes % (Manual) 26H, Eosinophils % ( Manual) 1, Basophils % (Manual) 0, Band Neutrophils 0, Platelet Estimate DecreasedL, Platelet Morphology Normal, Polychromasia 1+, Hypochromasia 1+, Anisocytosis 1+, Sodium Level 133L, Potassium Level 4.7, Chloride Level 94L, Carbon Dioxide Level 34H, Anion Gap 5, Blood Urea Nitrogen 61H, Creatinine 12.9H , Estimat Glomerular Filtration Rate 4.8, Glucose Level 96, Calcium Level 8.5 Current Medications Medications (Trade) Dose Ordered Sig/Jose Route PRN Reason Start Time Stop Time Status Last Admin Dose Admin Acetaminophen (Tylenol) 650 mg Q4H PRN RECTAL Mild Pain (Pain Scale 1-3) 06/16/17 19:00 07/09/17 18:59 Amikacin Sulfate 950 mg/Sodium Chloride 113.8 ml @ 227.6 mls/ hr FRI-FRI-FRI IV 06/18/17 21:00 06/30/17 20:59 06/20/17 22:28 Carisoprodol (Soma) 350 mg Q6H PRN ORAL MUSCLE SPASMS 06/16/17 19:00 07/14/17 18:59 06/20/17 23:55 Carvedilol (Coreg) 25 mg EVERY 12 HOURS ORAL 06/16/17 21:00 07/04/17 11:29 06/23/17 09:17 Ceftriaxone Sodium 2 gm/ Dextrose 55 ml @ 110 mls/hr Q24H IVPB 06/21/17 20:00 06/28/17 19:59 06/23/17 20:00 Chlorhexidine Gluconate (Mireille-Hex 2%) 1 applic DAILY@1999 TOPIC 06/16/17 20:00 07/05/17 19:59 06/23/17 20:00 Clonidine HCl (Catapres Tab) 0.1 mg Q4H PRN ORAL bp over 160 syst 06/16/17 19:00 07/03/17 18:59 Dextrose 1,000 ml @ 50 mls/hr Q20H IV 06/16/17 19:00 07/14/17 18:59 06/23/17 11:24 Dextrose (Dextrose 50%) STAT PRN IV Hypoglycemia 06/16/17 19:00 07/14/17 18:59 Docusate Sodium (Colace) 100 mg THREE TIMES A DAY ORAL 06/17/17 20:00 07/03/17 19:59 06/23/17 18:22 Ethambutol HCl (Myambutol) 1,000 mg 3XW ORAL 06/18/17 09:00 07/18/17 23:59 06/23/17 09:18 Levofloxacin (Levaquin) 750 mg EVERY OTHER DAY@1999 ORAL 06/17/17 20:00 06/30/17 19:59 06/23/17 20:00 Lisinopril (Prinivil) 20 mg BID ORAL 06/17/17 09:00 07/04/17 08:59 06/23/17 18:22 Metronidazole (Flagyl) 500 mg Q8HR ORAL 06/17/17 22:00 06/30/17 21:59 06/23/17 21:33 Morphine Sulfate (Morphine Sulfate) 2 mg Q4H PRN IVP Moderate Pain (Pain Scale 4-6) 06/17/17 14:45 06/24/17 14:44 06/23/17 15:44 Nitroglycerin (Ntg) 0.4 mg Q5M PRN SL Prn Chest Pain 06/16/17 18:15 07/04/17 09:14 Nitroglycerin (Ntg) 1 patch Q24H TDERMAL 06/17/17 11:30 07/04/17 11:29 06/23/17 11:24 Ondansetron HCl (Zofran) 4 mg Q6H PRN IVP Nausea & Vomiting 06/16/17 18:30 07/14/17 18:29 Pantoprazole (Protonix) 40 mg ACBREAKFAST ORAL 06/17/17 06:30 07/15/17 06:29 06/23/17 05:47 Polyethylene Glycol (Miralax) 17 gm DAILYPRN PRN ORAL Constipation 06/16/17 18:30 07/14/17 18:29 Promethazine HCl/ Codeine (Phenergan with Codeine) 5 ml Q4H PRN ORAL For Cough 06/16/17 18:30 07/05/17 18:29 Sevelamer Carbonate (Renvela) 2,400 mg THREE TIMES A DAY ORAL 06/16/17 18:45 07/16/17 18:44 06/23/17 18:22 Tobramycin/ Dexamethasone (Tobradex Opth Oint) 1 applic FOUR TIMES A DAY BOTH EYES 06/22/17 18:00 06/28/17 23:59 06/23/17 21:00 Voriconazole (Vfend) 200 mg EVERY 12 HOURS ORAL 06/23/17 21:00 06/30/17 20:59 06/23/17 21:00 Christine Morgan MD Jun 23, 2017 22:08
[2017-06-23] MEDS: Amikacin 950 MG in NS 110 ML IV SCH (23:16)
--- NOTE | 2017-06-23 23:20 | General Progress Note ---
Assessment/Plan Assessment/Plan #. Anemia secondary to chronic disease. --> Hemoglobin remains on the lower side, but improved from yesterday. --> S/P abd CAT scan revealing evidence of hepatic cirrhosis. --> Hepatosplenomegaly. Ascites. There is also evidence of generalized anasarca , with pleural fluid and generalized subcutaneous edema --> Continue to closely monitor and trend cbc daily. --> Anemia workup completed and reviewed. Iron 42, TIBC 180, Ferritin 593, B12 876. --> Ferritin is >500, hgb goal is >7 --> Anemia w/u has been reviewed --> ++Occult blood. Consider GI Services and Recs. --> Noted some abd pain, ongoing pain control. Pain improved. #. Anemia of kidney disease --> HD as needed per nephrology team --> Monitor closely. #. Generalized body ache related to fluid overload. #. End-stage renal disease, on hemodialysis as needed --> Monitor. S/P HD. #. Tachycardia, to be seen by Cardiology Service, isolated T-wave and ST- segment depression in V6. --> HR has been ~80-90bpm --> S/P Chest CT -- Evidence of worsening CHF/interstitial edema. --> Monitor for improvement. #. Elevated BNP, potentially related to underlying CKD. #. Cardiomegaly. S/P Chest Xray --> Persistent but slightly decreased size of known right lung cavitary lesion. --> Persistent extensive interstitial and bilateral airspace opacities. Subjective Date patient seen: Jun 23, 2017 Constitutional: Denies: no symptoms, chills, diaphoresis, fever, malaise, weakness, other HEENT: Denies: no symptoms, eye pain, blurred vision, tearing, double vision, ear pain, ear discharge, nose pain, nose congestion, throat pain, throat swelling, mouth pain, mouth swelling, other Cardiovascular: Denies: no symptoms, chest pain, edema, irregular heart rate, lightheadedness, palpitations, syncope, other Respiratory: Denies: no symptoms, cough, orthopnea, shortness of breath, SOB with excertion, SOB at rest, sputum, stridor, wheezing, other Gastrointestinal/Abdominal: Denies: no symptoms, abdomen distended, abdominal pain, black stools, tarry stools, blood in stool, constipated, diarrhea, difficulty swallowing, nausea, poor appetite, poor fluid intake, rectal bleeding , vomiting, other Genitourinary: Denies: no symptoms, burning, discharge, frequency, flank pain, hematuria, incontinence, pain, urgency, other Neurologic/Psychiatric: Denies: no symptoms, anxiety, depressed, emotional problems, headache, numbness, paresthesia, pre-existing deficit, seizure, tingling, tremors, weakness, other Hematologic/Lymphatic: Reports: anemia Allergies: Coded Allergies: No Known Allergies (Unverified , 10/24/15) Subjective NAD. Hemoglobin improved from yesterday. Objective Last 24 Hour Vital Signs Date Time Temp Pulse Resp B/P (MAP) Pulse Ox O2 Delivery O2 Flow Rate FiO2 06/23/17 22:55 Bi-pap 10.0 06/23/17 22:42 98.1 06/23/17 22:30 98.4 81 24 115/79 Bi-pap 10.0 98.4 06/23/17 22:13 94 06/23/17 22:10 Bi-pap 40 06/23/17 22:10 94 Bi-pap 40 06/23/17 22:09 94 Bi-pap 40 06/23/17 21:00 66 159/84 06/23/17 20:00 98.1 66 20 159/84 94 98.1 06/23/17 19:45 86 20 94 Facial 4.0 36 06/23/17 19:00 Nasal Cannula 3.0 06/23/17 19:00 98.0 71 24 151/82 Nasal Cannula 3.0 98.0 06/23/17 18:22 115/69 06/23/17 16:00 98.1 68 20 128/72 97 98.1 06/23/17 11:57 98.2 71 20 115/69 91 98.2 06/23/17 11:24 131/69 06/23/17 09:17 131/69 06/23/17 09:17 70 131/69 06/23/17 08:45 94 Nasal Cannula 4.0 36 06/23/17 08:45 Nasal Cannula 4.0 36 06/23/17 07:31 97.1 70 20 131/69 94 97.1 06/23/17 04:00 96.8 71 19 115/72 96.8 06/23/17 01:23 74 18 98 Facial 40 06/23/17 00:00 Nasal Cannula 4.0 06/23/17 00:00 98.1 76 19 143/76 97 98.1 Intake and Output 06/22/17 06/23/17 19:00 07:00 Intake Total 660 ml 595 ml Balance 660 ml 595 ml Intake Oral 360 ml IV Total 300 ml 595 ml # Voids 1 # Bowel Movements 1 Laboratory Tests 06/23/17 05:45: White Blood Count 5.6, Red Blood Count 2.43L, Hemoglobin 7.5L, Hematocrit 22.3L , Mean Corpuscular Volume 92, Mean Corpuscular Hemoglobin 30.8, Mean Corpuscular Hemoglobin Concent 33.7, Red Cell Distribution Width 16.7H, Platelet Count 122L, Mean Platelet Volume 7.4, Neutrophils (%) (Auto) , Lymphocytes (%) (Auto) , Monocytes (%) (Auto) , Eosinophils (%) (Auto) , Basophils (%) (Auto) , Differential Total Cells Counted 100, Neutrophils % ( Manual) 50, Lymphocytes % (Manual) 23, Monocytes % (Manual) 26H, Eosinophils % ( Manual) 1, Basophils % (Manual) 0, Band Neutrophils 0, Platelet Estimate DecreasedL, Platelet Morphology Normal, Polychromasia 1+, Hypochromasia 1+, Anisocytosis 1+, Sodium Level 133L, Potassium Level 4.7, Chloride Level 94L, Carbon Dioxide Level 34H, Anion Gap 5, Blood Urea Nitrogen 61H, Creatinine 12.9H , Estimat Glomerular Filtration Rate 4.8, Glucose Level 96, Calcium Level 8.5 Height (Feet): 5 Height (Inches): 7.00 Weight (Pounds): 224 General Appearance: confused Respiratory/Chest: decreased breath sounds Abdomen: soft Edema: trace edema Irving Parker MD Jun 23, 2017 23:19
[2017-06-24] VITALS (7 sets, daily range): BP systolic 124–142; BP diastolic 72–88
[2017-06-24] MEDS: Morphine Sulfate 2mg/ml Inj IVP PRN ×5 (03:31→21:38)
[2017-06-24] MEDS: metroNIDAZOLE 500mg tab ORAL SCH ×3 (05:01→21:44)
[2017-06-24 07:56] LABS: HEMATOCRIT 24.1 % (42.0-52.0); HEMOGLOBIN 7.8 G/DL (14.2-18.0); MEAN CORPUSCULAR VOLUME 94 FL (80-99); PLATELET COUNT 119 K/UL (150-450); RED BLOOD COUNT 2.57 M/UL (4.70-6.10); RED CELL DISTRIBUTION WIDTH 17.7 % (11.6-14.8); WHITE BLOOD COUNT 5.1 K/UL (4.8-10.8)
[2017-06-24 08:09] LABS: ALANINE AMINOTRANSFERASE 34 U/L (12-78); ALBUMIN 2.4 G/DL (3.4-5.0); ALBUMIN/GLOBULIN RATIO 0.5 (1.0-2.7); ALKALINE PHOSPHATASE 165 U/L (46-116); ANION GAP 6 mmol/L (5-15); ASPARTATE AMINO TRANSFERASE 19 U/L (15-37); BILIRUBIN,TOTAL 0.7 MG/DL (0.2-1.0); BLOOD UREA NITROGEN 39 mg/dL (7-18); CALCIUM 8.6 MG/DL (8.5-10.1); CARBON DIOXIDE 38 MMOL/L (21-32); CHLORIDE 98 MMOL/L (98-107); CREATININE 9.5 MG/DL (0.55-1.30); POTASSIUM 4.1 MMOL/L (3.5-5.1); SODIUM 141 MMOL/L (136-145)
[2017-06-24] MEDS: Tobradex Opth Oint 3.5gm BOTH EYES SCH ×4 (08:48→21:43)
[2017-06-24] MEDS: Lisinopril 20mg tab ORAL SCH ×2 (08:48→17:13)
[2017-06-24] MEDS: Carvedilol 25mg Tab ORAL SCH ×2 (08:49→21:44)
[2017-06-24] MEDS: Docusate 100mg cap ORAL SCH ×3 (08:49→17:13)
--- NOTE | 2017-06-24 10:55 | Infectious Diseases Prog Note ---
Assessment/Plan Assessment/Plan A: Cavitary PNA. SCx: Neg ( m/l necrotizing Pneum, less likely fungal and doubt TB ) -CXR 06/21: Persistent but slightly decreased size of known right lung cavitary lesion. Persistent extensive interstitial and bilateral airspace opacities. -sp cx 06/18 PsA (singh S) + Providencia stuarti (S Ceftriaxone, R Cipro) Rsp status improved but on 06/[address] his condition worsen T-SPOT :Neg AFB x 3 : Neg MTB PCR x2 : neg cryptococcus Ag, Histoplams mycelial Ab , Blastomyces ab : neg ; histoplasma yeast ab (not able to be done due to anticomplemenatry activity) -Cocci, Asp ag, fungitell pending 06/21 Xray : improvement of cavity CT chest 06/15: Slightly smaller (6 cm diameter ) but mostly unchanged cavitary lesion in the right lung, previously thought to represent a cavitating inflammatory process. Lung abscess is certainly a possibility. Fairly extensive bilateral pulmonary parenchymal consolidation, slightly increased from previous exam of 06/05/2017. Likely a combination of pulmonary edema and pneumonia. Small right and trace left pleural effusion, new/increased from the previous study. CT 06/05: 7.8 x 5.3 x 6.6 cm dense opacity in the posterior inferior right upper lobe with a central cavitation. Chest x-ray : right mid lung infiltrate, possible cavitation Rule out tuberculosis, fungal infection, or necrotizing pneumonia. CRP 14 Influenza negative Low-grade fever, SP Status post leukocytosis. Transaminitis ,? 2/2 Hep C cirrhosis- no active Hep C as VL not detected -CT abd/p: Evidence of hepatic cirrhosis. Hepatosplenomegaly. evidence of generalized anasarca, with pleural fluid and generalized subcutaneous edema. Cholelithiasis, also previously reported. Possible diverticulosis. No evidence of diverticulitis US Abd : Cholelithiasis. There is gallbladder wall thickening, likely related to hemodynamic abnormalities Splenomegaly. Evidence of hepatic cirrhosis HIV : NEG Hep Panel B neg , C Ab : +ve , VL not detected leukopenia and TCP 2/2 splenomegaly Seizure disorder History of CVA History of pacemaker placement Hyperlipidemia Hypertension COPD/asthma End-stage renal disease, on hemodialysis Diabetes Anxiety Anemia Echo, ejection fraction 45% to 50%. PLAN: Continue Rocephin d # 4/5-7 for possible superimposed Providencia PNA Continue PO Voriconazole abx d#9 for possible Aspergillosispending cultures and fungal serologies -monitor LFTs, QTc -watch for drug-drug interactions -Continue Flagyl (in addition with Levaquin will provide anaerobic coverage for possible aspiration/cavitary and now PsA PNA as no isolation of resistant organisms); abx d# 22/28 Continue empiric Ethambutol , amikacin d# 11 and Levaquin d# 12 ( TB Control recs to start TB Rx, doubt that this is needed at his time pt has pt improved initially, wups so far neg for TB, has increased of LFT , ) -CT guided lung biopsy could be done to aid on diagnosis 06/20 SP Liposomal Ampho #8 06/17 SP IV Vancomycin #14, Meropenem #5 / SP Zosyn d# 10 3/ SP Zithromax D# 6 f/u sputum culture (, fungal, and AFB x3). f/u Coccidioidal ,Galactomannan and Fungitell, Histoplasma ag urine Airborne isolation for now Disposition per Dept of Public Health Subjective Allergies: Coded Allergies: No Known Allergies (Unverified , 10/24/15) Subjective afebrile no leukocytosis LFTs improving fungal serologies pending Objective Vital Signs Last 24 Hour Vital Signs Date Time Temp Pulse Resp B/P (MAP) Pulse Ox O2 Delivery O2 Flow Rate FiO2 06/24/17 08:49 76 137/88 06/24/17 08:48 137/88 06/24/17 08:10 96 Venturi Mask 10.0 45 06/24/17 08:10 Venturi Mask 10.0 45 06/24/17 08:09 76 18 Venturi Mask 10.0 45 06/24/17 08:02 Nasal Cannula 5.0 06/24/17 08:01 97.8 73 20 137/88 95 97.8 06/24/17 04:01 96.4 06/24/17 03:31 96.4 06/24/17 03:15 96.4 80 20 133/80 100 Bi-pap 96.4 06/24/17 00:50 96.8 78 20 130/72 95 Bi-pap 96.8 06/23/17 22:55 Bi-pap 10.0 06/23/17 22:42 98.1 06/23/17 22:30 98.4 81 24 115/79 Bi-pap 10.0 98.4 06/23/17 22:13 94 06/23/17 22:10 Bi-pap 40 06/23/17 22:10 94 Bi-pap 40 06/23/17 22:09 94 Bi-pap 40 06/23/17 21:00 66 159/84 06/23/17 20:00 98.1 66 20 159/84 94 98.1 06/23/17 19:45 86 20 94 Facial 4.0 36 06/23/17 19:00 Nasal Cannula 3.0 06/23/17 19:00 98.0 71 24 151/82 Nasal Cannula 3.0 98.0 06/23/17 18:22 115/69 06/23/17 16:00 98.1 68 20 128/72 97 98.1 06/23/17 11:57 98.2 71 20 115/69 91 98.2 06/23/17 11:24 131/69 Height (Feet): 5 Height (Inches): 7.00 Weight (Pounds): 233 Objective General Appearance: WD/WN, alert, moderate distress EENT: PERRL/EOMI, normal ENT inspection Neck: non-tender, normal alignment, supple, normal inspection Cardiovascular: normal peripheral pulses, normal rate, regular rhythm, no gallop/murmur, no JVD Respiratory/Chest: Non rebreather; respiratory distress, crackles/rales, rhonchi - bilaterally, expiratory wheezing Abdomen: normal bowel sounds, non tender, soft, no organomegaly, no mass Extremities: normal range of motion 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, no motor/sensory deficits Skin: normal pigmentation, warm/dry Laboratory Tests Test 06/24/17 05:00 White Blood Count 5.1 K/UL (4.8-10.8) Red Blood Count 2.57 M/UL (4.70-6.10) L Hemoglobin 7.8 G/DL (14.2-18.0) L Hematocrit 24.1 % (42.0-52.0) L Mean Corpuscular Volume 94 FL (80-99) Mean Corpuscular Hemoglobin 30.2 PG (27.0-31.0) Mean Corpuscular Hemoglobin Concent 32.1 G/DL (32.0-36.0) Red Cell Distribution Width 17.7 % (11.6-14.8) H Platelet Count 119 K/UL (150-450) L Mean Platelet Volume 6.4 FL (6.5-10.1) L Neutrophils (%) (Auto) % (45.0-75.0) Lymphocytes (%) (Auto) % (20.0-45.0) Monocytes (%) (Auto) % (1.0-10.0) Eosinophils (%) (Auto) % (0.0-3.0) Basophils (%) (Auto) % (0.0-2.0) Differential Total Cells Counted 100 Neutrophils % (Manual) 56 % (45-75) Lymphocytes % (Manual) 23 % (20-45) Monocytes % (Manual) 19 % (1-10) H Eosinophils % (Manual) 2 % (0-3) Basophils % (Manual) 0 % (0-2) Band Neutrophils 0 % (0-8) Platelet Estimate Decreased L Platelet Morphology Normal Hypochromasia 1+ Anisocytosis 1+ Sodium Level 141 MMOL/L (136-145) Potassium Level 4.1 MMOL/L (3.5-5.1) Chloride Level 98 MMOL/L (98-107) Carbon Dioxide Level 38 MMOL/L (21-32) H Anion Gap 6 mmol/L (5-15) Blood Urea Nitrogen 39 mg/dL (7-18) H Creatinine 9.5 MG/DL (0.55-1.30) H Estimat Glomerular Filtration Rate 6.9 mL/min (>60) Glucose Level 72 MG/DL (74-106) L Calcium Level 8.6 MG/DL (8.5-10.1) Total Bilirubin 0.7 MG/DL (0.2-1.0) Aspartate Amino Transf (AST/SGOT) 19 U/L (15-37) Alanine Aminotransferase (ALT/SGPT) 34 U/L (12-78) Alkaline Phosphatase 165 U/L (46-116) H Total Protein 7.0 G/DL (6.4-8.2) Albumin 2.4 G/DL (3.4-5.0) L Globulin 4.6 g/dL Albumin/Globulin Ratio 0.5 (1.0-2.7) L Current Medications Medications (Trade) Dose Ordered Sig/Jose Route PRN Reason Start Time Stop Time Status Last Admin Dose Admin Acetaminophen (Tylenol) 650 mg Q4H PRN RECTAL Mild Pain (Pain Scale 1-3) 06/16/17 19:00 07/09/17 18:59 Amikacin Sulfate 950 mg/Sodium Chloride 113.8 ml @ 227.6 mls/ hr FRI-FRI-FRI IV 06/18/17 21:00 06/30/17 20:59 06/23/17 23:16 Carisoprodol (Soma) 350 mg Q6H PRN ORAL MUSCLE SPASMS 06/16/17 19:00 07/14/17 18:59 06/20/17 23:55 Carvedilol (Coreg) 25 mg EVERY 12 HOURS ORAL 06/16/17 21:00 07/04/17 11:29 06/24/17 08:49 Ceftriaxone Sodium 2 gm/ Dextrose 55 ml @ 110 mls/hr Q24H IVPB 06/21/17 20:00 06/28/17 19:59 06/23/17 20:00 Chlorhexidine Gluconate (Mireille-Hex 2%) 1 applic DAILY@1999 TOPIC 06/16/17 20:00 07/05/17 19:59 06/23/17 20:00 Clonidine HCl (Catapres Tab) 0.1 mg Q4H PRN ORAL bp over 160 syst 06/16/17 19:00 07/03/17 18:59 Dextrose 1,000 ml @ 50 mls/hr Q20H IV 06/16/17 19:00 07/14/17 18:59 06/24/17 05:01 Dextrose (Dextrose 50%) STAT PRN IV Hypoglycemia 06/16/17 19:00 07/14/17 18:59 Docusate Sodium (Colace) 100 mg THREE TIMES A DAY ORAL 06/17/17 20:00 07/03/17 19:59 06/24/17 08:49 Ethambutol HCl (Myambutol) 1,000 mg 3XW ORAL 06/18/17 09:00 07/18/17 23:59 06/23/17 09:18 Levofloxacin (Levaquin) 750 mg EVERY OTHER DAY@1999 ORAL 06/17/17 20:00 06/30/17 19:59 06/23/17 20:00 Lisinopril (Prinivil) 20 mg BID ORAL 06/17/17 09:00 07/04/17 08:59 06/24/17 08:48 Metronidazole (Flagyl) 500 mg Q8HR ORAL 06/17/17 22:00 06/30/17 21:59 06/24/17 05:01 Morphine Sulfate (Morphine Sulfate) 2 mg Q4H PRN IVP Moderate Pain (Pain Scale 4-6) 06/17/17 14:45 06/24/17 14:44 06/24/17 07:46 Nitroglycerin (Ntg) 0.4 mg Q5M PRN SL Prn Chest Pain 06/16/17 18:15 07/04/17 09:14 Nitroglycerin (Ntg) 1 patch Q24H TDERMAL 06/17/17 11:30 07/04/17 11:29 06/23/17 11:24 Ondansetron HCl (Zofran) 4 mg Q6H PRN IVP Nausea & Vomiting 06/16/17 18:30 07/14/17 18:29 Pantoprazole (Protonix) 40 mg ACBREAKFAST ORAL 06/17/17 06:30 07/15/17 06:29 06/24/17 05:01 Polyethylene Glycol (Miralax) 17 gm DAILYPRN PRN ORAL Constipation 06/16/17 18:30 07/14/17 18:29 Promethazine HCl/ Codeine (Phenergan with Codeine) 5 ml Q4H PRN ORAL For Cough 06/16/17 18:30 07/05/17 18:29 Sevelamer Carbonate (Renvela) 2,400 mg THREE TIMES A DAY ORAL 06/16/17 18:45 07/16/17 18:44 06/24/17 08:49 Tobramycin/ Dexamethasone (Tobradex Opth Oint) 1 applic FOUR TIMES A DAY BOTH EYES 06/22/17 18:00 06/28/17 23:59 06/24/17 08:48 Voriconazole (Vfend) 200 mg EVERY 12 HOURS ORAL 06/23/17 21:00 06/30/17 20:59 06/24/17 08:48 Aleja Crocker M.D. Jun 24, 2017 10:55
[2017-06-24] MEDS: Nitroglycerin Patch 0.4mg TDERMAL SCH (11:40)
--- NOTE | 2017-06-24 13:23 | General Surgery Progress Note ---
General Surgery-Progress Note Subjective Symptoms: improved, pain absent Additional Comments in chair. comfortable. no pain Objective Last 24 Hour Vital Signs Date Time Temp Pulse Resp B/P (MAP) Pulse Ox O2 Delivery O2 Flow Rate FiO2 06/24/17 11:49 98.1 78 20 142/79 95 98.1 06/24/17 11:40 137/88 06/24/17 08:49 76 137/88 06/24/17 08:48 137/88 06/24/17 08:10 96 Venturi Mask 10.0 45 06/24/17 08:10 Venturi Mask 10.0 45 06/24/17 08:09 76 18 Venturi Mask 10.0 45 06/24/17 08:02 Nasal Cannula 5.0 06/24/17 08:01 97.8 73 20 137/88 95 97.8 06/24/17 04:01 96.4 06/24/17 03:31 96.4 06/24/17 03:15 96.4 80 20 133/80 100 Bi-pap 96.4 06/24/17 00:50 96.8 78 20 130/72 95 Bi-pap 96.8 06/23/17 22:55 Bi-pap 10.0 06/23/17 22:42 98.1 06/23/17 22:30 98.4 81 24 115/79 Bi-pap 10.0 98.4 06/23/17 22:13 94 06/23/17 22:10 Bi-pap 40 06/23/17 22:10 94 Bi-pap 40 06/23/17 22:09 94 Bi-pap 40 06/23/17 21:00 66 159/84 06/23/17 20:00 98.1 66 20 159/84 94 98.1 06/23/17 19:45 86 20 94 Facial 4.0 36 06/23/17 19:00 Nasal Cannula 3.0 06/23/17 19:00 98.0 71 24 151/82 Nasal Cannula 3.0 98.0 06/23/17 18:22 115/69 06/23/17 16:00 98.1 68 20 128/72 97 98.1 I&O Intake and Output 06/23/17 06/24/17 19:00 07:00 Intake Total 720 ml 400 ml Output Total 3000 ml Balance 720 ml -2600 ml Intake Oral 270 ml IV Total 450 ml 400 ml Hemodialysis UF 3000 ml # Voids 1 5 Drains: none Cardiovascular: RSR Respiratory: clear Abdomen: soft, flat, non-tender, present bowel sounds Extremities: no cyanosis Laboratory Tests Test 06/24/17 05:00 White Blood Count 5.1 K/UL (4.8-10.8) Red Blood Count 2.57 M/UL (4.70-6.10) L Hemoglobin 7.8 G/DL (14.2-18.0) L Hematocrit 24.1 % (42.0-52.0) L Mean Corpuscular Volume 94 FL (80-99) Mean Corpuscular Hemoglobin 30.2 PG (27.0-31.0) Mean Corpuscular Hemoglobin Concent 32.1 G/DL (32.0-36.0) Red Cell Distribution Width 17.7 % (11.6-14.8) H Platelet Count 119 K/UL (150-450) L Mean Platelet Volume 6.4 FL (6.5-10.1) L Neutrophils (%) (Auto) % (45.0-75.0) Lymphocytes (%) (Auto) % (20.0-45.0) Monocytes (%) (Auto) % (1.0-10.0) Eosinophils (%) (Auto) % (0.0-3.0) Basophils (%) (Auto) % (0.0-2.0) Differential Total Cells Counted 100 Neutrophils % (Manual) 56 % (45-75) Lymphocytes % (Manual) 23 % (20-45) Monocytes % (Manual) 19 % (1-10) H Eosinophils % (Manual) 2 % (0-3) Basophils % (Manual) 0 % (0-2) Band Neutrophils 0 % (0-8) Platelet Estimate Decreased L Platelet Morphology Normal Hypochromasia 1+ Anisocytosis 1+ Sodium Level 141 MMOL/L (136-145) Potassium Level 4.1 MMOL/L (3.5-5.1) Chloride Level 98 MMOL/L (98-107) Carbon Dioxide Level 38 MMOL/L (21-32) H Anion Gap 6 mmol/L (5-15) Blood Urea Nitrogen 39 mg/dL (7-18) H Creatinine 9.5 MG/DL (0.55-1.30) H Estimat Glomerular Filtration Rate 6.9 mL/min (>60) Glucose Level 72 MG/DL (74-106) L Calcium Level 8.6 MG/DL (8.5-10.1) Total Bilirubin 0.7 MG/DL (0.2-1.0) Aspartate Amino Transf (AST/SGOT) 19 U/L (15-37) Alanine Aminotransferase (ALT/SGPT) 34 U/L (12-78) Alkaline Phosphatase 165 U/L (46-116) H Total Protein 7.0 G/DL (6.4-8.2) Albumin 2.4 G/DL (3.4-5.0) L Globulin 4.6 g/dL Albumin/Globulin Ratio 0.5 (1.0-2.7) L Plan Problems: (1) Intractable abdominal pain Assessment & Plan: 57M with abdominal pain. elevated lft's and ultrasound reviewed. has liver cirrhosis, ascites, and gallbladder findings on ultrasound likely secondary to intrinsic liver disease. on exam his abdominal pain is fairly superficial and around this right abd upper and lower and right flank. he has edema and thickening of the right subcutaneous tissues as compared to the left. possible abscess vs cellulitis? Ultrasound findings: Impression: Ascites Evidence of hepatic cirrhosis Cholelithiasis. There is gallbladder wall thickening, likely related to hemodynamic abnormalities related to the hepatic abnormality, particularly as this is evident on the prior exam of 2 years earlier. However, acute cholecystitis cannot be completely ruled out, and hepatobiliary scanning is recommended if there is high clinical suspicion CT findings: Impression: Evidence of hepatic cirrhosis. Hepatosplenomegaly Ascites. There is also evidence of generalized anasarca, with pleural fluid and generalized subcutaneous edema Cholelithiasis, also previously reported Possible diverticulosis. No evidence of diverticulitis Nonvisualized appendix. No evidence of appendicitis Left renal cysts. Subcentimeter right lobe hepatic and bilateral renal lesions, too small to characterize, most likely benign simple cysts. No further follow-up necessary Bilateral pleural effusions and parenchymal consolidation. pain resolved. no complaints. labs okay. -given exam, radiological findings, history, unlikely to be acute cholecystitis. exam with discomfort in right upper/lower/flank region and improving ultrasound findings similar to that of two years ago. -no acute surgical intervention recommended at this time. -okay to d/c from surgical standpoint Ever Parham Jun 24, 2017 13:23
--- NOTE | 2017-06-24 14:58 | Nephrology Progress Note ---
Assessment/Plan Problem List: (1) ESRD (end stage renal disease) on dialysis (2) Shortness of breath (3) Anemia Assessment worsenning Anemia ESRD , missed HD , admitted with high K and pulmonary edema Acute respiratory distress due to volume overload elevated troponin r/o ACS h/o COPD ? exacerbation HTN urgency Cardiomyopathy L AICD anemia of chronic kidney disease Hx of CVA Plan Plan: Low H&H - consider transfusion HD next 06/25 Transfused Phos binders BP meds adjustment Optimize cardiac status per orders Subjective ROS Limited/Unobtainable: No Constitutional: Reports: malaise Objective Objective Last 24 Hour Vital Signs Date Time Temp Pulse Resp B/P (MAP) Pulse Ox O2 Delivery O2 Flow Rate FiO2 06/24/17 11:50 Nasal Cannula 5.0 06/24/17 11:49 98.1 78 20 142/79 95 98.1 06/24/17 11:40 137/88 06/24/17 08:49 76 137/88 06/24/17 08:48 137/88 06/24/17 08:10 96 Venturi Mask 10.0 45 06/24/17 08:10 Venturi Mask 10.0 45 06/24/17 08:09 76 18 Venturi Mask 10.0 45 06/24/17 08:02 Nasal Cannula 5.0 06/24/17 08:01 97.8 73 20 137/88 95 97.8 06/24/17 04:01 96.4 06/24/17 03:31 96.4 06/24/17 03:15 96.4 80 20 133/80 100 Bi-pap 96.4 06/24/17 00:50 96.8 78 20 130/72 95 Bi-pap 96.8 06/23/17 22:55 Bi-pap 10.0 06/23/17 22:42 98.1 06/23/17 22:30 98.4 81 24 115/79 Bi-pap 10.0 98.4 06/23/17 22:13 94 06/23/17 22:10 Bi-pap 40 06/23/17 22:10 94 Bi-pap 40 06/23/17 22:09 94 Bi-pap 40 06/23/17 21:00 66 159/84 06/23/17 20:00 98.1 66 20 159/84 94 98.1 06/23/17 19:45 86 20 94 Facial 4.0 36 06/23/17 19:00 Nasal Cannula 3.0 06/23/17 19:00 98.0 71 24 151/82 Nasal Cannula 3.0 98.0 06/23/17 18:22 115/69 06/23/17 16:00 98.1 68 20 128/72 97 98.1 Intake and Output 06/23/17 06/24/17 19:00 07:00 Intake Total 720 ml 400 ml Output Total 3000 ml Balance 720 ml -2600 ml Intake Oral 270 ml IV Total 450 ml 400 ml Hemodialysis UF 3000 ml # Voids 1 5 Laboratory Tests 06/24/17 05:00: White Blood Count 5.1, Red Blood Count 2.57L, Hemoglobin 7.8L, Hematocrit 24.1L , Mean Corpuscular Volume 94, Mean Corpuscular Hemoglobin 30.2, Mean Corpuscular Hemoglobin Concent 32.1, Red Cell Distribution Width 17.7H, Platelet Count 119L, Mean Platelet Volume 6.4L, Neutrophils (%) (Auto) , Lymphocytes (%) (Auto) , Monocytes (%) (Auto) , Eosinophils (%) (Auto) , Basophils (%) (Auto) , Differential Total Cells Counted 100, Neutrophils % ( Manual) 56, Lymphocytes % (Manual) 23, Monocytes % (Manual) 19H, Eosinophils % ( Manual) 2, Basophils % (Manual) 0, Band Neutrophils 0, Platelet Estimate DecreasedL, Platelet Morphology Normal, Hypochromasia 1+, Anisocytosis 1+, Sodium Level 141, Potassium Level 4.1, Chloride Level 98, Carbon Dioxide Level 38H, Anion Gap 6, Blood Urea Nitrogen 39H, Creatinine 9.5H, Estimat Glomerular Filtration Rate 6.9, Glucose Level 72L, Calcium Level 8.6, Total Bilirubin 0.7, Aspartate Amino Transf (AST/SGOT) 19, Alanine Aminotransferase (ALT/SGPT) 34, Alkaline Phosphatase 165H, Total Protein 7.0, Albumin 2.4L, Globulin 4.6, Albumin/Globulin Ratio 0.5L Height (Feet): 5 Height (Inches): 7.00 Weight (Pounds): 233 General Appearance: no apparent distress Objective no change LIAM MONTELONGO 20, 2018 14:58
--- NOTE | 2017-06-24 16:25 | General Progress Note ---
Assessment/Plan Assessment/Plan Assessment - Anemia - OB (+) Stool - w/u deferred since in isolation - ESRD/HD - DM - HTN - COPD - gallstones - RUQ TTP and improving LFT - abnormal GB ultrasound - cirrhotic appearing liver on CT - Hepatitis C (+) Recommendations - PO as tolerated - monitor LFT - transfuse PRN - Acid blockade - Defer EGD/Colon a this time - re check to confirm HCV Subjective Allergies: Coded Allergies: No Known Allergies (Unverified , 10/24/15) Subjective above noted no events overnight denies abd pain tolerating po sitting up Objective Last 24 Hour Vital Signs Date Time Temp Pulse Resp B/P (MAP) Pulse Ox O2 Delivery O2 Flow Rate FiO2 06/24/17 16:17 98.4 68 20 129/82 95 98.4 06/24/17 11:50 Nasal Cannula 5.0 06/24/17 11:49 98.1 78 20 142/79 95 98.1 06/24/17 11:40 137/88 06/24/17 08:49 76 137/88 06/24/17 08:48 137/88 06/24/17 08:10 96 Venturi Mask 10.0 45 06/24/17 08:10 Venturi Mask 10.0 45 06/24/17 08:09 76 18 Venturi Mask 10.0 45 06/24/17 08:02 Nasal Cannula 5.0 06/24/17 08:01 97.8 73 20 137/88 95 97.8 06/24/17 04:01 96.4 06/24/17 03:31 96.4 06/24/17 03:15 96.4 80 20 133/80 100 Bi-pap 96.4 06/24/17 00:50 96.8 78 20 130/72 95 Bi-pap 96.8 06/23/17 22:55 Bi-pap 10.0 06/23/17 22:42 98.1 06/23/17 22:30 98.4 81 24 115/79 Bi-pap 10.0 98.4 06/23/17 22:13 94 06/23/17 22:10 Bi-pap 40 06/23/17 22:10 94 Bi-pap 40 06/23/17 22:09 94 Bi-pap 40 06/23/17 21:00 66 159/84 06/23/17 20:00 98.1 66 20 159/84 94 98.1 06/23/17 19:45 86 20 94 Facial 4.0 36 06/23/17 19:00 Nasal Cannula 3.0 06/23/17 19:00 98.0 71 24 151/82 Nasal Cannula 3.0 98.0 06/23/17 18:22 115/69 Intake and Output 06/23/17 06/24/17 19:00 07:00 Intake Total 720 ml 400 ml Output Total 3000 ml Balance 720 ml -2600 ml Intake Oral 270 ml IV Total 450 ml 400 ml Hemodialysis UF 3000 ml # Voids 1 5 Laboratory Tests 06/24/17 05:00: White Blood Count 5.1, Red Blood Count 2.57L, Hemoglobin 7.8L, Hematocrit 24.1L , Mean Corpuscular Volume 94, Mean Corpuscular Hemoglobin 30.2, Mean Corpuscular Hemoglobin Concent 32.1, Red Cell Distribution Width 17.7H, Platelet Count 119L, Mean Platelet Volume 6.4L, Neutrophils (%) (Auto) , Lymphocytes (%) (Auto) , Monocytes (%) (Auto) , Eosinophils (%) (Auto) , Basophils (%) (Auto) , Differential Total Cells Counted 100, Neutrophils % ( Manual) 56, Lymphocytes % (Manual) 23, Monocytes % (Manual) 19H, Eosinophils % ( Manual) 2, Basophils % (Manual) 0, Band Neutrophils 0, Platelet Estimate DecreasedL, Platelet Morphology Normal, Hypochromasia 1+, Anisocytosis 1+, Sodium Level 141, Potassium Level 4.1, Chloride Level 98, Carbon Dioxide Level 38H, Anion Gap 6, Blood Urea Nitrogen 39H, Creatinine 9.5H, Estimat Glomerular Filtration Rate 6.9, Glucose Level 72L, Calcium Level 8.6, Total Bilirubin 0.7, Aspartate Amino Transf (AST/SGOT) 19, Alanine Aminotransferase (ALT/SGPT) 34, Alkaline Phosphatase 165H, Total Protein 7.0, Albumin 2.4L, Globulin 4.6, Albumin/Globulin Ratio 0.5L Height (Feet): 5 Height (Inches): 7.00 Weight (Pounds): 233 Objective WDWN AA Man NCAT supple CTA RRR Soft mildly distended, (+) improved RUQ TTP No edema PERCY JOYNER Jun 24, 2017 16:25
--- NOTE | 2017-06-24 16:47 | Internal Med Progress Note ---
Subjective Physician Name Zoey Pires Attending Physician Chaitanya Weinstein MD Current Medications Medications (Trade) Dose Ordered Sig/Jose Route PRN Reason Start Time Stop Time Status Last Admin Dose Admin Acetaminophen (Tylenol) 650 mg Q4H PRN RECTAL Mild Pain (Pain Scale 1-3) 06/16/17 19:00 07/09/17 18:59 Amikacin Sulfate 950 mg/Sodium Chloride 113.8 ml @ 227.6 mls/ hr FRI-FRI-FRI IV 06/18/17 21:00 06/30/17 20:59 06/23/17 23:16 Carisoprodol (Soma) 350 mg Q6H PRN ORAL MUSCLE SPASMS 06/16/17 19:00 07/14/17 18:59 06/20/17 23:55 Carvedilol (Coreg) 25 mg EVERY 12 HOURS ORAL 06/16/17 21:00 07/04/17 11:29 06/24/17 08:49 Ceftriaxone Sodium 2 gm/ Dextrose 55 ml @ 110 mls/hr Q24H IVPB 06/21/17 20:00 06/28/17 19:59 06/23/17 20:00 Chlorhexidine Gluconate (Mireille-Hex 2%) 1 applic DAILY@1999 TOPIC 06/16/17 20:00 07/05/17 19:59 06/23/17 20:00 Clonidine HCl (Catapres Tab) 0.1 mg Q4H PRN ORAL bp over 160 syst 06/16/17 19:00 07/03/17 18:59 Dextrose 1,000 ml @ 50 mls/hr Q20H IV 06/16/17 19:00 07/14/17 18:59 06/24/17 15:37 Dextrose (Dextrose 50%) STAT PRN IV Hypoglycemia 06/16/17 19:00 07/14/17 18:59 Docusate Sodium (Colace) 100 mg THREE TIMES A DAY ORAL 06/17/17 20:00 07/03/17 19:59 06/24/17 13:06 Ethambutol HCl (Myambutol) 1,000 mg 3XW ORAL 06/18/17 09:00 07/18/17 23:59 06/23/17 09:18 Levofloxacin (Levaquin) 750 mg EVERY OTHER DAY@1999 ORAL 06/17/17 20:00 06/30/17 19:59 06/23/17 20:00 Lisinopril (Prinivil) 20 mg BID ORAL 06/17/17 09:00 07/04/17 08:59 06/24/17 08:48 Metronidazole (Flagyl) 500 mg Q8HR ORAL 06/17/17 22:00 06/30/17 21:59 06/24/17 13:06 Morphine Sulfate (Morphine Sulfate) 2 mg Q4H PRN IVP For Severe Pain 06/24/17 16:30 07/01/17 16:29 06/24/17 16:36 Nitroglycerin (Ntg) 0.4 mg Q5M PRN SL Prn Chest Pain 06/16/17 18:15 07/04/17 09:14 Nitroglycerin (Ntg) 1 patch Q24H TDERMAL 06/17/17 11:30 07/04/17 11:29 06/24/17 11:40 Ondansetron HCl (Zofran) 4 mg Q6H PRN IVP Nausea & Vomiting 06/16/17 18:30 07/14/17 18:29 Pantoprazole (Protonix) 40 mg ACBREAKFAST ORAL 06/17/17 06:30 07/15/17 06:29 06/24/17 05:01 Polyethylene Glycol (Miralax) 17 gm DAILYPRN PRN ORAL Constipation 06/16/17 18:30 07/14/17 18:29 Promethazine HCl/ Codeine (Phenergan with Codeine) 5 ml Q4H PRN ORAL For Cough 06/16/17 18:30 07/05/17 18:29 Sevelamer Carbonate (Renvela) 2,400 mg THREE TIMES A DAY ORAL 06/16/17 18:45 07/16/17 18:44 06/24/17 13:06 Tobramycin/ Dexamethasone (Tobradex Opth Oint) 1 applic FOUR TIMES A DAY BOTH EYES 06/22/17 18:00 06/28/17 23:59 06/24/17 13:06 Voriconazole (Vfend) 200 mg EVERY 12 HOURS ORAL 06/23/17 21:00 06/30/17 20:59 06/24/17 08:48 Allergies: Coded Allergies: No Known Allergies (Unverified , 10/24/15) Subjective 57 YO M admitted with chest pain and shortness of breath. Now pneumonia and candelaria heart failure. Tolerating nasal canula. Cover for Int Misbah-Dr Weinstein. Objective Last Vital Signs Date Time Temp Pulse Resp B/P (MAP) Pulse Ox O2 Delivery O2 Flow Rate FiO2 06/24/17 16:17 98.4 68 20 129/82 95 98.4 06/24/17 11:50 Nasal Cannula 5.0 06/24/17 08:10 45 Laboratory Tests Test 06/24/17 05:00 White Blood Count 5.1 K/UL (4.8-10.8) Red Blood Count 2.57 M/UL (4.70-6.10) L Hemoglobin 7.8 G/DL (14.2-18.0) L Hematocrit 24.1 % (42.0-52.0) L Mean Corpuscular Volume 94 FL (80-99) Mean Corpuscular Hemoglobin 30.2 PG (27.0-31.0) Mean Corpuscular Hemoglobin Concent 32.1 G/DL (32.0-36.0) Red Cell Distribution Width 17.7 % (11.6-14.8) H Platelet Count 119 K/UL (150-450) L Mean Platelet Volume 6.4 FL (6.5-10.1) L Neutrophils (%) (Auto) % (45.0-75.0) Lymphocytes (%) (Auto) % (20.0-45.0) Monocytes (%) (Auto) % (1.0-10.0) Eosinophils (%) (Auto) % (0.0-3.0) Basophils (%) (Auto) % (0.0-2.0) Differential Total Cells Counted 100 Neutrophils % (Manual) 56 % (45-75) Lymphocytes % (Manual) 23 % (20-45) Monocytes % (Manual) 19 % (1-10) H Eosinophils % (Manual) 2 % (0-3) Basophils % (Manual) 0 % (0-2) Band Neutrophils 0 % (0-8) Platelet Estimate Decreased L Platelet Morphology Normal Hypochromasia 1+ Anisocytosis 1+ Sodium Level 141 MMOL/L (136-145) Potassium Level 4.1 MMOL/L (3.5-5.1) Chloride Level 98 MMOL/L (98-107) Carbon Dioxide Level 38 MMOL/L (21-32) H Anion Gap 6 mmol/L (5-15) Blood Urea Nitrogen 39 mg/dL (7-18) H Creatinine 9.5 MG/DL (0.55-1.30) H Estimat Glomerular Filtration Rate 6.9 mL/min (>60) Glucose Level 72 MG/DL (74-106) L Calcium Level 8.6 MG/DL (8.5-10.1) Total Bilirubin 0.7 MG/DL (0.2-1.0) Aspartate Amino Transf (AST/SGOT) 19 U/L (15-37) Alanine Aminotransferase (ALT/SGPT) 34 U/L (12-78) Alkaline Phosphatase 165 U/L (46-116) H Total Protein 7.0 G/DL (6.4-8.2) Albumin 2.4 G/DL (3.4-5.0) L Globulin 4.6 g/dL Albumin/Globulin Ratio 0.5 (1.0-2.7) L Intake and Output 06/23/17 06/24/17 18:59 06:59 Intake Total 770 ml 350 ml Output Total 3000 ml Balance 770 ml -2650 ml Intake Oral 270 ml IV Total 500 ml 350 ml Hemodialysis UF 3000 ml # Voids 1 5 Objective General Appearance: WD/WN, alert, moderate distress EENT: PERRL/EOMI, normal ENT inspection Neck: non-tender, normal alignment, supple, normal inspection Cardiovascular: normal peripheral pulses, normal rate, regular rhythm, no gallop/murmur, no JVD Respiratory/Chest: Nasal canula; respiratory distress, crackles/rales, rhonchi - bilaterally, expiratory wheezing Abdomen: normal bowel sounds, non tender, soft, no organomegaly, no mass Extremities: normal range of motion Neurologic: gang rider 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 Currently on nasal canula. See pulmonay note. (2) Pleuritic chest pain (3) Hemoptysis Assessment & Plan: Due to pneumonia (4) Pneumonia Assessment & Plan: RUL and cavitary. Concerning for TB. Await AFB cultures- see ID consult. Continue vanco and ethambutol per ID (5) Shortness of breath (6) ESRD (end stage renal disease) on dialysis Assessment & Plan: See nephrology note. Hemodialysis 06/14/17 per nephrology (7) Hyperkalemia Assessment & Plan: Due to renal failure. Hemodialysis 06/12/17 per nephrology (8) COPD (chronic obstructive pulmonary disease) (9) HTN (hypertension) Assessment & Plan: Continue coreg and lisinopril. (10) CHF (congestive heart failure) (11) Elevated troponin Assessment & Plan: ?due to renal failure? See cardiology note. (12) Intractable abdominal pain Assessment & Plan: See surgery note. Await CT abdomen (13) Conjunctivitis Assessment & Plan: start tobramycin Status: not improved ZOEY PIRES Jun 24, 2017 16:47
--- NOTE | 2017-06-24 19:29 | Pulmonology Progress Note ---
Assessment/Plan Problems: (1) Respiratory failure (2) Pneumonia (3) Hemoptysis (4) Anemia (5) ESRD (end stage renal disease) on dialysis (6) HTN (hypertension) Assessment/Plan med/surg slowly improving cxr slighly better on venturi mask clinically better HD by communication analyst hold heparin for low PLT prbc prn on anti TB meds voriconazole started all notes reviewed f/u wbc and cultures repeat CT in one week or so Subjective Allergies: Coded Allergies: No Known Allergies (Unverified , 10/24/15) Objective Last 24 Hour Vital Signs Date Time Temp Pulse Resp B/P (MAP) Pulse Ox O2 Delivery O2 Flow Rate FiO2 06/24/17 17:13 129/82 06/24/17 16:18 Nasal Cannula 5.0 06/24/17 16:17 98.4 68 20 129/82 95 98.4 06/24/17 11:50 Nasal Cannula 5.0 06/24/17 11:49 98.1 78 20 142/79 95 98.1 06/24/17 11:40 137/88 06/24/17 08:49 76 137/88 06/24/17 08:48 137/88 06/24/17 08:10 96 Venturi Mask 10.0 45 06/24/17 08:10 Venturi Mask 10.0 45 06/24/17 08:09 76 18 Venturi Mask 10.0 45 06/24/17 08:02 Nasal Cannula 5.0 06/24/17 08:01 97.8 73 20 137/88 95 97.8 06/24/17 04:01 96.4 06/24/17 03:31 96.4 06/24/17 03:15 96.4 80 20 133/80 100 Bi-pap 96.4 06/24/17 00:50 96.8 78 20 130/72 95 Bi-pap 96.8 06/23/17 22:55 Bi-pap 10.0 06/23/17 22:42 98.1 06/23/17 22:30 98.4 81 24 115/79 Bi-pap 10.0 98.4 06/23/17 22:13 94 06/23/17 22:10 Bi-pap 40 06/23/17 22:10 94 Bi-pap 40 06/23/17 22:09 94 Bi-pap 40 06/23/17 21:00 66 159/84 06/23/17 20:00 98.1 66 20 159/84 94 98.1 06/23/17 19:45 86 20 94 Facial 4.0 36 Intake and Output 06/23/17 06/24/17 19:00 07:00 Intake Total 720 ml 400 ml Output Total 3000 ml Balance 720 ml -2600 ml Intake Oral 270 ml IV Total 450 ml 400 ml Hemodialysis UF 3000 ml # Voids 1 5 Objective General Appearance: WD/WN HEENT: normocephalic, atraumatic, anicteric Respiratory/Chest: loud rhonchi Cardiovascular: normal peripheral pulses, normal rate, regular rhythm Abdomen: normal bowel sounds, soft, non tender, no organomegaly Genitourinary: normal external genitalia Extremities: no cyanosis Skin: no rash, no lesions 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, no motor/sensory deficits Lymphatic: no neck adenopathy, no groin adenopathy Laboratory Tests 06/24/17 05:00: White Blood Count 5.1, Red Blood Count 2.57L, Hemoglobin 7.8L, Hematocrit 24.1L , Mean Corpuscular Volume 94, Mean Corpuscular Hemoglobin 30.2, Mean Corpuscular Hemoglobin Concent 32.1, Red Cell Distribution Width 17.7H, Platelet Count 119L, Mean Platelet Volume 6.4L, Neutrophils (%) (Auto) , Lymphocytes (%) (Auto) , Monocytes (%) (Auto) , Eosinophils (%) (Auto) , Basophils (%) (Auto) , Differential Total Cells Counted 100, Neutrophils % ( Manual) 56, Lymphocytes % (Manual) 23, Monocytes % (Manual) 19H, Eosinophils % ( Manual) 2, Basophils % (Manual) 0, Band Neutrophils 0, Platelet Estimate DecreasedL, Platelet Morphology Normal, Hypochromasia 1+, Anisocytosis 1+, Sodium Level 141, Potassium Level 4.1, Chloride Level 98, Carbon Dioxide Level 38H, Anion Gap 6, Blood Urea Nitrogen 39H, Creatinine 9.5H, Estimat Glomerular Filtration Rate 6.9, Glucose Level 72L, Calcium Level 8.6, Total Bilirubin 0.7, Aspartate Amino Transf (AST/SGOT) 19, Alanine Aminotransferase (ALT/SGPT) 34, Alkaline Phosphatase 165H, Total Protein 7.0, Albumin 2.4L, Globulin 4.6, Albumin/Globulin Ratio 0.5L Current Medications Medications (Trade) Dose Ordered Sig/Jose Route PRN Reason Start Time Stop Time Status Last Admin Dose Admin Acetaminophen (Tylenol) 650 mg Q4H PRN RECTAL Mild Pain (Pain Scale 1-3) 06/16/17 19:00 07/09/17 18:59 Alprazolam (Xanax) 2 mg DAILYPRN PRN ORAL For Anxiety 06/24/17 17:00 07/01/17 16:59 Amikacin Sulfate 950 mg/Sodium Chloride 113.8 ml @ 227.6 mls/ hr FRI-FRI-FRI IV 06/18/17 21:00 06/30/17 20:59 06/23/17 23:16 Carisoprodol (Soma) 350 mg Q6H PRN ORAL MUSCLE SPASMS 06/16/17 19:00 07/14/17 18:59 06/20/17 23:55 Carvedilol (Coreg) 25 mg EVERY 12 HOURS ORAL 06/16/17 21:00 07/04/17 11:29 06/24/17 08:49 Ceftriaxone Sodium 2 gm/ Dextrose 55 ml @ 110 mls/hr Q24H IVPB 06/21/17 20:00 06/28/17 19:59 06/23/17 20:00 Chlorhexidine Gluconate (Mireille-Hex 2%) 1 applic DAILY@2000 TOPIC 06/16/17 20:00 07/05/17 19:59 06/23/17 20:00 Clonidine HCl (Catapres Tab) 0.1 mg Q4H PRN ORAL bp over 160 syst 06/16/17 19:00 07/03/17 18:59 Dextrose 1,000 ml @ 50 mls/hr Q20H IV 06/16/17 19:00 07/14/17 18:59 06/24/17 15:37 Dextrose (Dextrose 50%) STAT PRN IV Hypoglycemia 06/16/17 19:00 07/14/17 18:59 Docusate Sodium (Colace) 100 mg THREE TIMES A DAY ORAL 06/17/17 20:00 07/03/17 19:59 06/24/17 17:13 Ethambutol HCl (Myambutol) 1,000 mg 3XW ORAL 06/18/17 09:00 07/18/17 23:59 06/23/17 09:18 Levofloxacin (Levaquin) 750 mg EVERY OTHER DAY@1999 ORAL 06/17/17 20:00 06/30/17 19:59 06/23/17 20:00 Lisinopril (Prinivil) 20 mg BID ORAL 06/17/17 09:00 07/04/17 08:59 06/24/17 17:13 Metronidazole (Flagyl) 500 mg Q8HR ORAL 06/17/17 22:00 06/30/17 21:59 06/24/17 13:06 Morphine Sulfate (Morphine Sulfate) 2 mg Q4H PRN IVP For Severe Pain 06/24/17 16:30 07/01/17 16:29 06/24/17 16:36 Nitroglycerin (Ntg) 0.4 mg Q5M PRN SL Prn Chest Pain 06/16/17 18:15 07/04/17 09:14 Nitroglycerin (Ntg) 1 patch Q24H TDERMAL 06/17/17 11:30 07/04/17 11:29 06/24/17 11:40 Ondansetron HCl (Zofran) 4 mg Q6H PRN IVP Nausea & Vomiting 06/16/17 18:30 07/14/17 18:29 Pantoprazole (Protonix) 40 mg ACBREAKFAST ORAL 06/17/17 06:30 07/15/17 06:29 06/24/17 05:01 Polyethylene Glycol (Miralax) 17 gm DAILYPRN PRN ORAL Constipation 06/16/17 18:30 07/14/17 18:29 Promethazine HCl/ Codeine (Phenergan with Codeine) 5 ml Q4H PRN ORAL For Cough 06/16/17 18:30 07/05/17 18:29 Sevelamer Carbonate (Renvela) 2,400 mg THREE TIMES A DAY ORAL 06/16/17 18:45 07/16/17 18:44 06/24/17 17:13 Tobramycin/ Dexamethasone (Tobradex Opth Oint) 1 applic FOUR TIMES A DAY BOTH EYES 06/22/17 18:00 06/28/17 23:59 06/24/17 17:13 Voriconazole (Vfend) 200 mg EVERY 12 HOURS ORAL 06/23/17 21:00 06/30/17 20:59 06/24/17 08:48 Christine Morgan MD Jun 24, 2017 19:29
[2017-06-24] MEDS: cefTRIAXone 2 GM in D5W 55 ML IVPB SCH (21:43)
[2017-06-24] MEDS: Dyna-Hex 2% Top Sol 2oz TOPIC SCH (21:43)
[2017-06-25] MEDS: Morphine Sulfate 2mg/ml Inj IVP PRN ×5 (02:08→21:09)
[2017-06-25] MEDS: ALPRAZolam 0.5mg tab ORAL PRN ×2 (03:47→21:10)
[2017-06-25 04:00] VITALS: BP 129/79
[2017-06-25] MEDS: metroNIDAZOLE 500mg tab ORAL SCH ×3 (05:10→21:09)
[2017-06-25 07:45] LABS: ALANINE AMINOTRANSFERASE 29 U/L (12-78); ALBUMIN 2.3 G/DL (3.4-5.0); ALBUMIN/GLOBULIN RATIO 0.5 (1.0-2.7); ALKALINE PHOSPHATASE 145 U/L (46-116); ANION GAP 7 mmol/L (5-15); ASPARTATE AMINO TRANSFERASE 17 U/L (15-37); BILIRUBIN,TOTAL 0.6 MG/DL (0.2-1.0); BLOOD UREA NITROGEN 45 mg/dL (7-18); CALCIUM 7.8 MG/DL (8.5-10.1); CARBON DIOXIDE 33 MMOL/L (21-32); CHLORIDE 101 MMOL/L (98-107); CREATININE 10.6 MG/DL (0.55-1.30); SODIUM 141 MMOL/L (136-145)
[2017-06-25 08:00] VITALS: BP 107/67
[2017-06-25] MEDS: Docusate 100mg cap ORAL SCH ×3 (08:08→17:42)
[2017-06-25] MEDS: Tobradex Opth Oint 3.5gm BOTH EYES SCH ×4 (08:09→21:10)
[2017-06-25] MEDS: Carvedilol 25mg Tab ORAL SCH ×2 (08:12→21:11)
[2017-06-25] MEDS: Lisinopril 20mg tab ORAL SCH ×2 (08:15→17:42)
--- NOTE | 2017-06-25 11:25 | General Progress Note ---
Assessment/Plan Assessment/Plan #. Anemia secondary to chronic disease. --> Hemoglobin levels have been improving --> S/P abd CAT scan revealing evidence of hepatic cirrhosis. --> Hepatosplenomegaly. Ascites. There is also evidence of generalized anasarca , with pleural fluid and generalized subcutaneous edema --> Continue to closely monitor and trend cbc daily. --> Anemia workup completed and reviewed. Iron 42, TIBC 180, Ferritin 593, B12 876. --> Ferritin is >500, hgb goal is >7 --> Anemia w/u has been reviewed --> ++Occult blood. Consider GI Services and Recs. --> Noted some abd pain, ongoing pain control. Pain improved. #. Anemia of kidney disease --> HD as needed per nephrology team --> Monitor closely. #. Generalized body ache related to fluid overload. #. End-stage renal disease, on hemodialysis as needed --> Monitor. S/P HD. #. Tachycardia, to be seen by Cardiology Service, isolated T-wave and ST- segment depression in V6. --> HR has been ~80-90bpm --> S/P Chest CT -- Evidence of worsening CHF/interstitial edema. --> Monitor for improvement. #. Elevated BNP, potentially related to underlying CKD. #. Cardiomegaly. S/P Chest Xray --> Persistent but slightly decreased size of known right lung cavitary lesion. --> Persistent extensive interstitial and bilateral airspace opacities. Subjective Date patient seen: Jun 24, 2017 Constitutional: Denies: no symptoms, chills, diaphoresis, fever, malaise, weakness, other HEENT: Denies: no symptoms, eye pain, blurred vision, tearing, double vision, ear pain, ear discharge, nose pain, nose congestion, throat pain, throat swelling, mouth pain, mouth swelling, other Cardiovascular: Denies: no symptoms, chest pain, edema, irregular heart rate, lightheadedness, palpitations, syncope, other Respiratory: Denies: no symptoms, cough, orthopnea, shortness of breath, SOB with excertion, SOB at rest, sputum, stridor, wheezing, other Gastrointestinal/Abdominal: Denies: no symptoms, abdomen distended, abdominal pain, black stools, tarry stools, blood in stool, constipated, diarrhea, difficulty swallowing, nausea, poor appetite, poor fluid intake, rectal bleeding , vomiting, other Genitourinary: Denies: no symptoms, burning, discharge, frequency, flank pain, hematuria, incontinence, pain, urgency, other Neurologic/Psychiatric: Denies: no symptoms, anxiety, depressed, emotional problems, headache, numbness, paresthesia, pre-existing deficit, seizure, tingling, tremors, weakness, other Hematologic/Lymphatic: Reports: anemia Allergies: Coded Allergies: No Known Allergies (Unverified , 10/24/15) Subjective NAD. Hemoglobin improving. No fever or chills. Objective Last 24 Hour Vital Signs Date Time Temp Pulse Resp B/P (MAP) Pulse Ox O2 Delivery O2 Flow Rate FiO2 06/25/17 08:15 107/67 06/25/17 08:12 67 107/67 06/25/17 08:00 98.1 67 19 107/67 94 98.1 06/25/17 04:00 98.0 79 20 129/79 98 Nasal Cannula 98.0 06/25/17 02:38 98.6 06/25/17 02:08 98.6 06/24/17 23:59 98.6 79 18 124/73 92 98.6 06/24/17 22:44 94 06/24/17 21:44 70 137/80 06/24/17 21:38 97.9 06/24/17 20:00 97.9 70 19 137/80 95 97.9 06/24/17 19:59 94 Nasal Cannula 5.0 40 06/24/17 19:59 Nasal Cannula 5.0 40 06/24/17 19:58 72 18 Nasal Cannula 5.0 40 06/24/17 17:13 129/82 06/24/17 16:18 Nasal Cannula 5.0 06/24/17 16:17 98.4 68 20 129/82 95 98.4 06/24/17 11:50 Nasal Cannula 5.0 06/24/17 11:49 98.1 78 20 142/79 95 98.1 06/24/17 11:40 137/88 Intake and Output 06/24/17 06/25/17 19:00 07:00 Intake Total 860 ml 600 ml Balance 860 ml 600 ml Intake Oral 360 ml IV Total 500 ml 600 ml # Voids 2 # Bowel Movements 1 1 Laboratory Tests 06/25/17 06:30: Sodium Level 141, Potassium Level 4.0, Chloride Level 101, Carbon Dioxide Level 33H, Anion Gap 7, Blood Urea Nitrogen 45H, Creatinine 10.6H, Estimat Glomerular Filtration Rate 6.1, Glucose Level 87, Calcium Level 7.8L, Total Bilirubin 0.6, Aspartate Amino Transf (AST/SGOT) 17, Alanine Aminotransferase (ALT/SGPT) 29, Alkaline Phosphatase 145H, Total Protein 6.5, Albumin 2.3L, Globulin 4.2, Albumin/Globulin Ratio 0.5L, Hepatitis C Antibody [Pending] Height (Feet): 5 Height (Inches): 7.00 Weight (Pounds): 234 General Appearance: no apparent distress Respiratory/Chest: decreased breath sounds Abdomen: soft Irving Parker MD Jun 25, 2017 11:25
[2017-06-25 12:00] VITALS: BP 119/70
[2017-06-25] MEDS: Nitroglycerin Patch 0.4mg TDERMAL SCH (12:14)
--- NOTE | 2017-06-25 12:20 | General Surgery Progress Note ---
General Surgery-Progress Note Subjective Symptoms: improved, pain absent Additional Comments no acute events. pain resolved. Objective Last 24 Hour Vital Signs Date Time Temp Pulse Resp B/P (MAP) Pulse Ox O2 Delivery O2 Flow Rate FiO2 06/25/17 12:14 119/70 06/25/17 12:00 98.1 65 20 119/70 98 98.1 06/25/17 11:36 77 18 Nasal Cannula 5.0 40 06/25/17 11:36 92 Nasal Cannula 5.0 40 06/25/17 11:36 Nasal Cannula 5.0 40 06/25/17 08:15 107/67 06/25/17 08:12 67 107/67 06/25/17 08:00 98.1 67 19 107/67 94 98.1 06/25/17 04:00 98.0 79 20 129/79 98 Nasal Cannula 98.0 06/25/17 02:38 98.6 06/25/17 02:08 98.6 06/24/17 23:59 98.6 79 18 124/73 92 98.6 06/24/17 22:44 94 06/24/17 21:44 70 137/80 06/24/17 21:38 97.9 06/24/17 20:00 97.9 70 19 137/80 95 97.9 06/24/17 19:59 94 Nasal Cannula 5.0 40 06/24/17 19:59 Nasal Cannula 5.0 40 06/24/17 19:58 72 18 Nasal Cannula 5.0 40 06/24/17 17:13 129/82 06/24/17 16:18 Nasal Cannula 5.0 06/24/17 16:17 98.4 68 20 129/82 95 98.4 I&O Intake and Output 06/24/17 06/25/17 19:00 07:00 Intake Total 860 ml 600 ml Balance 860 ml 600 ml Intake Oral 360 ml IV Total 500 ml 600 ml # Voids 2 # Bowel Movements 1 1 Drains: none Cardiovascular: RSR Respiratory: clear Abdomen: soft, flat, non-tender, present bowel sounds Extremities: no cyanosis Laboratory Tests Test 06/25/17 06:30 Sodium Level 141 MMOL/L (136-145) Potassium Level 4.0 MMOL/L (3.5-5.1) Chloride Level 101 MMOL/L (98-107) Carbon Dioxide Level 33 MMOL/L (21-32) H Anion Gap 7 mmol/L (5-15) Blood Urea Nitrogen 45 mg/dL (7-18) H Creatinine 10.6 MG/DL (0.55-1.30) H Estimat Glomerular Filtration Rate 6.1 mL/min (>60) Glucose Level 87 MG/DL (74-106) Calcium Level 7.8 MG/DL (8.5-10.1) L Total Bilirubin 0.6 MG/DL (0.2-1.0) Aspartate Amino Transf (AST/SGOT) 17 U/L (15-37) Alanine Aminotransferase (ALT/SGPT) 29 U/L (12-78) Alkaline Phosphatase 145 U/L (46-116) H Total Protein 6.5 G/DL (6.4-8.2) Albumin 2.3 G/DL (3.4-5.0) L Globulin 4.2 g/dL Albumin/Globulin Ratio 0.5 (1.0-2.7) L Hepatitis C Antibody Pending Plan Problems: (1) Intractable abdominal pain Assessment & Plan: 57M with abdominal pain. elevated lft's and ultrasound reviewed. has liver cirrhosis, ascites, and gallbladder findings on ultrasound likely secondary to intrinsic liver disease. on exam his abdominal pain is fairly superficial and around this right abd upper and lower and right flank. he has edema and thickening of the right subcutaneous tissues as compared to the left. possible abscess vs cellulitis? Ultrasound findings: Impression: Ascites Evidence of hepatic cirrhosis Cholelithiasis. There is gallbladder wall thickening, likely related to hemodynamic abnormalities related to the hepatic abnormality, particularly as this is evident on the prior exam of 2 years earlier. However, acute cholecystitis cannot be completely ruled out, and hepatobiliary scanning is recommended if there is high clinical suspicion CT findings: Impression: Evidence of hepatic cirrhosis. Hepatosplenomegaly Ascites. There is also evidence of generalized anasarca, with pleural fluid and generalized subcutaneous edema Cholelithiasis, also previously reported Possible diverticulosis. No evidence of diverticulitis Nonvisualized appendix. No evidence of appendicitis Left renal cysts. Subcentimeter right lobe hepatic and bilateral renal lesions, too small to characterize, most likely benign simple cysts. No further follow-up necessary Bilateral pleural effusions and parenchymal consolidation. pain resolved. no complaints. labs okay. -given exam, radiological findings, history, unlikely to be acute cholecystitis. exam with discomfort in right upper/lower/flank region which has resolved. ultrasound findings similar to that of two years ago. -no acute surgical intervention recommended at this time. -okay to d/c from surgical standpoint when ready. Ever Parham Jun 25, 2017 12:20
--- NOTE | 2017-06-25 12:46 | Internal Med Progress Note ---
Subjective Date of Service: Jun 25, 2017 Physician Name Pires,Zoey Attending Physician Chaitanya Weinstein MD Current Medications Medications (Trade) Dose Ordered Sig/Jose Route PRN Reason Start Time Stop Time Status Last Admin Dose Admin Acetaminophen (Tylenol) 650 mg Q4H PRN RECTAL Mild Pain (Pain Scale 1-3) 06/16/17 19:00 07/09/17 18:59 Alprazolam (Xanax) 2 mg DAILYPRN PRN ORAL For Anxiety 06/24/17 17:00 07/01/17 16:59 06/25/17 03:47 Amikacin Sulfate 950 mg/Sodium Chloride 113.8 ml @ 227.6 mls/ hr FRI-FRI-FRI IV 06/18/17 21:00 06/30/17 20:59 06/23/17 23:16 Carisoprodol (Soma) 350 mg Q6H PRN ORAL MUSCLE SPASMS 06/16/17 19:00 07/14/17 18:59 06/20/17 23:55 Carvedilol (Coreg) 25 mg EVERY 12 HOURS ORAL 06/16/17 21:00 07/04/17 11:29 06/24/17 21:44 Ceftriaxone Sodium 2 gm/ Dextrose 55 ml @ 110 mls/hr Q24H IVPB 06/21/17 20:00 06/28/17 19:59 06/24/17 21:43 Chlorhexidine Gluconate (Mireille-Hex 2%) 1 applic DAILY@2000 TOPIC 06/16/17 20:00 07/05/17 19:59 06/24/17 21:43 Clonidine HCl (Catapres Tab) 0.1 mg Q4H PRN ORAL bp over 160 syst 06/16/17 19:00 07/03/17 18:59 Dextrose 1,000 ml @ 50 mls/hr Q20H IV 06/16/17 19:00 07/14/17 18:59 06/24/17 15:37 Dextrose (Dextrose 50%) STAT PRN IV Hypoglycemia 06/16/17 19:00 07/14/17 18:59 Docusate Sodium (Colace) 100 mg THREE TIMES A DAY ORAL 06/17/17 20:00 07/03/17 19:59 06/25/17 12:14 Ethambutol HCl (Myambutol) 1,000 mg 3XW ORAL 06/18/17 09:00 07/18/17 23:59 06/25/17 08:09 Levofloxacin (Levaquin) 750 mg EVERY OTHER DAY@1999 ORAL 06/17/17 20:00 06/30/17 19:59 06/23/17 20:00 Lisinopril (Prinivil) 20 mg BID ORAL 06/17/17 09:00 07/04/17 08:59 06/24/17 17:13 Metronidazole (Flagyl) 500 mg Q8HR ORAL 06/17/17 22:00 06/30/17 21:59 06/25/17 05:10 Morphine Sulfate (Morphine Sulfate) 2 mg Q4H PRN IVP For Severe Pain 06/24/17 16:30 07/01/17 16:29 06/25/17 12:13 Nitroglycerin (Ntg) 0.4 mg Q5M PRN SL Prn Chest Pain 06/16/17 18:15 07/04/17 09:14 Nitroglycerin (Ntg) 1 patch Q24H TDERMAL 06/17/17 11:30 07/04/17 11:29 06/24/17 11:40 Ondansetron HCl (Zofran) 4 mg Q6H PRN IVP Nausea & Vomiting 06/16/17 18:30 07/14/17 18:29 06/24/17 21:45 Pantoprazole (Protonix) 40 mg ACBREAKFAST ORAL 06/17/17 06:30 07/15/17 06:29 06/25/17 05:10 Polyethylene Glycol (Miralax) 17 gm DAILYPRN PRN ORAL Constipation 06/16/17 18:30 07/14/17 18:29 Promethazine HCl/ Codeine (Phenergan with Codeine) 5 ml Q4H PRN ORAL For Cough 06/16/17 18:30 07/05/17 18:29 Sevelamer Carbonate (Renvela) 2,400 mg THREE TIMES A DAY ORAL 06/16/17 18:45 07/16/17 18:44 06/25/17 12:14 Tobramycin/ Dexamethasone (Tobradex Opth Oint) 1 applic FOUR TIMES A DAY BOTH EYES 06/22/17 18:00 06/28/17 23:59 06/25/17 12:14 Voriconazole (Vfend) 200 mg EVERY 12 HOURS ORAL 06/23/17 21:00 06/30/17 20:59 06/25/17 08:09 Allergies: Coded Allergies: No Known Allergies (Unverified , 10/24/15) Subjective 57 YO M admitted with chest pain and shortness of breath. Now pneumonia and candelaria heart failure. Tolerating nasal canula. Cover for Int Misbah-Dr Weinstein. Hemodialysis today 06/25 Objective Last Vital Signs Date Time Temp Pulse Resp B/P (MAP) Pulse Ox O2 Delivery O2 Flow Rate FiO2 06/25/17 12:14 119/70 06/25/17 12:00 98.1 65 20 98 98.1 06/25/17 11:36 Nasal Cannula 5.0 40 Laboratory Tests Test 06/25/17 06:30 Sodium Level 141 MMOL/L (136-145) Potassium Level 4.0 MMOL/L (3.5-5.1) Chloride Level 101 MMOL/L (98-107) Carbon Dioxide Level 33 MMOL/L (21-32) H Anion Gap 7 mmol/L (5-15) Blood Urea Nitrogen 45 mg/dL (7-18) H Creatinine 10.6 MG/DL (0.55-1.30) H Estimat Glomerular Filtration Rate 6.1 mL/min (>60) Glucose Level 87 MG/DL (74-106) Calcium Level 7.8 MG/DL (8.5-10.1) L Total Bilirubin 0.6 MG/DL (0.2-1.0) Aspartate Amino Transf (AST/SGOT) 17 U/L (15-37) Alanine Aminotransferase (ALT/SGPT) 29 U/L (12-78) Alkaline Phosphatase 145 U/L (46-116) H Total Protein 6.5 G/DL (6.4-8.2) Albumin 2.3 G/DL (3.4-5.0) L Globulin 4.2 g/dL Albumin/Globulin Ratio 0.5 (1.0-2.7) L Hepatitis C Antibody Pending Intake and Output 06/24/17 06/25/17 19:00 07:00 Intake Total 860 ml 600 ml Balance 860 ml 600 ml Intake Oral 360 ml IV Total 500 ml 600 ml # Voids 2 # Bowel Movements 1 1 Objective General Appearance: WD/WN, alert, moderate distress EENT: PERRL/EOMI, normal ENT inspection Neck: non-tender, normal alignment, supple, normal inspection Cardiovascular: normal peripheral pulses, normal rate, regular rhythm, no gallop/murmur, no JVD Respiratory/Chest: Nasal canula; respiratory distress, crackles/rales, rhonchi - bilaterally, expiratory wheezing Abdomen: normal bowel sounds, non tender, soft, no organomegaly, no mass Extremities: normal range of motion Neurologic: quad stayer 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 Currently on nasal canula. See pulmonay note. (2) Pleuritic chest pain (3) Hemoptysis Assessment & Plan: Due to pneumonia (4) Pneumonia Assessment & Plan: RUL and cavitary. Concerning for TB. Await AFB cultures- see ID consult. Continue vanco and ethambutol per ID (5) Shortness of breath (6) ESRD (end stage renal disease) on dialysis Assessment & Plan: See nephrology note. Hemodialysis 06/25/17 per nephrology (7) Hyperkalemia Assessment & Plan: Due to renal failure. Hemodialysis 06/12/17 per nephrology (8) COPD (chronic obstructive pulmonary disease) (9) HTN (hypertension) Assessment & Plan: Continue coreg and lisinopril. (10) CHF (congestive heart failure) (11) Elevated troponin Assessment & Plan: ?due to renal failure? See cardiology note. (12) Intractable abdominal pain Assessment & Plan: See surgery note. Await CT abdomen (13) Conjunctivitis Assessment & Plan: start tobramycin ZOEY PIRES Jun 25, 2017 12:46
--- NOTE | 2017-06-25 13:11 | Nephrology Progress Note ---
Assessment/Plan Problem List: (1) ESRD (end stage renal disease) on dialysis (2) Shortness of breath (3) Anemia Assessment worsenning Anemia ESRD , missed HD , admitted with high K and pulmonary edema Acute respiratory distress due to volume overload elevated troponin r/o ACS h/o COPD ? exacerbation HTN urgency Cardiomyopathy L AICD anemia of chronic kidney disease Hx of CVA Plan Plan: Low H&H - consider transfusion HD next 06/25 Transfused Phos binders BP meds adjustment Optimize cardiac status per orders Subjective ROS Limited/Unobtainable: No Constitutional: Reports: malaise Objective Objective Last 24 Hour Vital Signs Date Time Temp Pulse Resp B/P (MAP) Pulse Ox O2 Delivery O2 Flow Rate FiO2 06/25/17 12:14 119/70 06/25/17 12:00 98.1 65 20 119/70 98 98.1 06/25/17 11:36 77 18 Nasal Cannula 5.0 40 06/25/17 11:36 92 Nasal Cannula 5.0 40 06/25/17 11:36 Nasal Cannula 5.0 40 06/25/17 08:15 107/67 06/25/17 08:12 67 107/67 06/25/17 08:00 98.1 67 19 107/67 94 98.1 06/25/17 04:00 98.0 79 20 129/79 98 Nasal Cannula 98.0 06/25/17 02:38 98.6 06/25/17 02:08 98.6 06/24/17 23:59 98.6 79 18 124/73 92 98.6 06/24/17 22:44 94 06/24/17 21:44 70 137/80 06/24/17 21:38 97.9 06/24/17 20:00 97.9 70 19 137/80 95 97.9 06/24/17 19:59 94 Nasal Cannula 5.0 40 06/24/17 19:59 Nasal Cannula 5.0 40 06/24/17 19:58 72 18 Nasal Cannula 5.0 40 06/24/17 17:13 129/82 06/24/17 16:18 Nasal Cannula 5.0 06/24/17 16:17 98.4 68 20 129/82 95 98.4 Intake and Output 06/24/17 06/25/17 19:00 07:00 Intake Total 860 ml 600 ml Balance 860 ml 600 ml Intake Oral 360 ml IV Total 500 ml 600 ml # Voids 2 # Bowel Movements 1 1 Laboratory Tests 06/25/17 06:30: Sodium Level 141, Potassium Level 4.0, Chloride Level 101, Carbon Dioxide Level 33H, Anion Gap 7, Blood Urea Nitrogen 45H, Creatinine 10.6H, Estimat Glomerular Filtration Rate 6.1, Glucose Level 87, Calcium Level 7.8L, Total Bilirubin 0.6, Aspartate Amino Transf (AST/SGOT) 17, Alanine Aminotransferase (ALT/SGPT) 29, Alkaline Phosphatase 145H, Total Protein 6.5, Albumin 2.3L, Globulin 4.2, Albumin/Globulin Ratio 0.5L, Hepatitis C Antibody [Pending] Height (Feet): 5 Height (Inches): 7.00 Weight (Pounds): 234 General Appearance: no apparent distress Respiratory/Chest: decreased breath sounds Abdomen: distended Objective no change LIAM MONTELONGO Jun 25, 2017 13:11
[2017-06-25 16:00] VITALS: BP 117/60
--- NOTE | 2017-06-25 16:33 | Pulmonology Progress Note ---
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 hold heparin for low PLT prbc prn on anti TB meds voriconazole started all notes reviewed f/u wbc and cultures repeat CT ordered Subjective ROS Limited/Unobtainable: No Allergies: Coded Allergies: No Known Allergies (Unverified , 10/24/15) Objective Last 24 Hour Vital Signs Date Time Temp Pulse Resp B/P (MAP) Pulse Ox O2 Delivery O2 Flow Rate FiO2 06/25/17 16:00 97.3 71 20 117/60 98 97.3 06/25/17 12:14 119/70 06/25/17 12:00 98.1 65 20 119/70 98 98.1 06/25/17 11:36 77 18 Nasal Cannula 5.0 40 06/25/17 11:36 92 Nasal Cannula 5.0 40 06/25/17 11:36 Nasal Cannula 5.0 40 06/25/17 08:15 107/67 06/25/17 08:12 67 107/67 06/25/17 08:00 98.1 67 19 107/67 94 98.1 06/25/17 04:00 98.0 79 20 129/79 98 Nasal Cannula 98.0 06/25/17 02:38 98.6 06/25/17 02:08 98.6 06/24/17 23:59 98.6 79 18 124/73 92 98.6 06/24/17 22:44 94 06/24/17 21:44 70 137/80 06/24/17 21:38 97.9 06/24/17 20:00 97.9 70 19 137/80 95 97.9 06/24/17 19:59 94 Nasal Cannula 5.0 40 06/24/17 19:59 Nasal Cannula 5.0 40 06/24/17 19:58 72 18 Nasal Cannula 5.0 40 06/24/17 17:13 129/82 Intake and Output 06/24/17 06/25/17 19:00 07:00 Intake Total 860 ml 600 ml Balance 860 ml 600 ml Intake Oral 360 ml IV Total 500 ml 600 ml # Voids 2 # Bowel Movements 1 1 Objective General Appearance: WD/WN HEENT: normocephalic, atraumatic, anicteric Respiratory/Chest: loud rhonchi Cardiovascular: normal peripheral pulses, normal rate, regular rhythm Abdomen: normal bowel sounds, soft, non tender, no organomegaly Genitourinary: normal external genitalia Extremities: no cyanosis Skin: no rash, no lesions 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, no motor/sensory deficits Lymphatic: no neck adenopathy, no groin adenopathy Laboratory Tests 06/25/17 06:30: Sodium Level 141, Potassium Level 4.0, Chloride Level 101, Carbon Dioxide Level 33H, Anion Gap 7, Blood Urea Nitrogen 45H, Creatinine 10.6H, Estimat Glomerular Filtration Rate 6.1, Glucose Level 87, Calcium Level 7.8L, Total Bilirubin 0.6, Aspartate Amino Transf (AST/SGOT) 17, Alanine Aminotransferase (ALT/SGPT) 29, Alkaline Phosphatase 145H, Total Protein 6.5, Albumin 2.3L, Globulin 4.2, Albumin/Globulin Ratio 0.5L, Hepatitis C Antibody [Pending] Current Medications Medications (Trade) Dose Ordered Sig/Jose Route PRN Reason Start Time Stop Time Status Last Admin Dose Admin Acetaminophen (Tylenol) 650 mg Q4H PRN RECTAL Mild Pain (Pain Scale 1-3) 06/16/17 19:00 07/09/17 18:59 Alprazolam (Xanax) 2 mg DAILYPRN PRN ORAL For Anxiety 06/24/17 17:00 07/01/17 16:59 06/25/17 03:47 Amikacin Sulfate 950 mg/Sodium Chloride 113.8 ml @ 227.6 mls/ hr FRI-FRI-FRI IV 06/18/17 21:00 06/30/17 20:59 06/23/17 23:16 Carisoprodol (Soma) 350 mg Q6H PRN ORAL MUSCLE SPASMS 06/16/17 19:00 07/14/17 18:59 06/20/17 23:55 Carvedilol (Coreg) 25 mg EVERY 12 HOURS ORAL 06/16/17 21:00 07/04/17 11:29 06/24/17 21:44 Ceftriaxone Sodium 2 gm/ Dextrose 55 ml @ 110 mls/hr Q24H IVPB 06/21/17 20:00 06/28/17 19:59 06/24/17 21:43 Chlorhexidine Gluconate (Mireille-Hex 2%) 1 applic DAILY@1999 TOPIC 06/16/17 20:00 07/05/17 19:59 06/24/17 21:43 Clonidine HCl (Catapres Tab) 0.1 mg Q4H PRN ORAL bp over 160 syst 06/16/17 19:00 07/03/17 18:59 Dextrose 1,000 ml @ 50 mls/hr Q20H IV 06/16/17 19:00 07/14/17 18:59 06/25/17 13:12 Dextrose (Dextrose 50%) STAT PRN IV Hypoglycemia 06/16/17 19:00 07/14/17 18:59 Docusate Sodium (Colace) 100 mg THREE TIMES A DAY ORAL 06/17/17 20:00 07/03/17 19:59 06/25/17 12:14 Ethambutol HCl (Myambutol) 1,000 mg 3XW ORAL 06/18/17 09:00 07/18/17 23:59 06/25/17 08:09 Levofloxacin (Levaquin) 750 mg EVERY OTHER DAY@1999 ORAL 06/17/17 20:00 06/30/17 19:59 06/23/17 20:00 Lisinopril (Prinivil) 20 mg BID ORAL 06/17/17 09:00 07/04/17 08:59 06/24/17 17:13 Metronidazole (Flagyl) 500 mg Q8HR ORAL 06/17/17 22:00 06/30/17 21:59 06/25/17 13:12 Morphine Sulfate (Morphine Sulfate) 2 mg Q4H PRN IVP For Severe Pain 06/24/17 16:30 07/01/17 16:29 06/25/17 16:14 Nitroglycerin (Ntg) 0.4 mg Q5M PRN SL Prn Chest Pain 06/16/17 18:15 07/04/17 09:14 Nitroglycerin (Ntg) 1 patch Q24H TDERMAL 06/17/17 11:30 07/04/17 11:29 06/24/17 11:40 Ondansetron HCl (Zofran) 4 mg Q6H PRN IVP Nausea & Vomiting 3/12/18 18:30 07/14/17 18:29 06/24/17 21:45 Pantoprazole (Protonix) 40 mg ACBREAKFAST ORAL 06/17/17 06:30 07/15/17 06:29 06/25/17 05:10 Polyethylene Glycol (Miralax) 17 gm DAILYPRN PRN ORAL Constipation 06/16/17 18:30 07/14/17 18:29 Promethazine HCl/ Codeine (Phenergan with Codeine) 5 ml Q4H PRN ORAL For Cough 06/16/17 18:30 07/05/17 18:29 Sevelamer Carbonate (Renvela) 2,400 mg THREE TIMES A DAY ORAL 06/16/17 18:45 07/16/17 18:44 06/25/17 12:14 Tobramycin/ Dexamethasone (Tobradex Opth Oint) 1 applic FOUR TIMES A DAY BOTH EYES 06/22/17 18:00 06/28/17 23:59 06/25/17 12:14 Voriconazole (Vfend) 200 mg EVERY 12 HOURS ORAL 06/23/17 21:00 06/30/17 20:59 06/25/17 08:09 Christine Morgan MD Jun 25, 2017 16:32
--- NOTE | 2017-06-25 16:54 | Infectious Diseases Prog Note ---
Assessment/Plan Assessment/Plan A: Cavitary PNA. SCx: Neg ( m/l necrotizing Pneum, less likely fungal and doubt TB ) -CXR 06/21: Persistent but slightly decreased size of known right lung cavitary lesion. Persistent extensive interstitial and bilateral airspace opacities. -sp cx 06/05, 06/06 normal resp jordin; repeat sp cx 06/18 PsA (singh S) + Providencia stuarti (S Ceftriaxone, R Cipro) (likely superinfection/HCAP) Rsp status improved but on 06/[address] his condition worsen T-SPOT :Neg AFB x 3 : Neg MTB PCR x2 : neg cryptococcus Ag, Histoplams mycelial Ab , Blastomyces ab : neg ; histoplasma yeast ab (not able to be done due to anticomplemenatry activity) -Cocci, Asp ag, fungitell pending 06/21 Xray : improvement of cavity CT chest 06/15: Slightly smaller (6 cm diameter ) but mostly unchanged cavitary lesion in the right lung, previously thought to represent a cavitating inflammatory process. Lung abscess is certainly a possibility. Fairly extensive bilateral pulmonary parenchymal consolidation, slightly increased from previous exam of 06/05/2017. Likely a combination of pulmonary edema and pneumonia. Small right and trace left pleural effusion, new/increased from the previous study. CT 06/05: 7.8 x 5.3 x 6.6 cm dense opacity in the posterior inferior right upper lobe with a central cavitation. Chest x-ray : right mid lung infiltrate, possible cavitation Rule out tuberculosis, fungal infection, or necrotizing pneumonia. CRP 14 Influenza negative Low-grade fever, SP Status post leukocytosis. Transaminitis ,? 2/2 Hep C cirrhosis- no active Hep C as VL not detected -CT abd/p: Evidence of hepatic cirrhosis. Hepatosplenomegaly. evidence of generalized anasarca, with pleural fluid and generalized subcutaneous edema. Cholelithiasis, also previously reported. Possible diverticulosis. No evidence of diverticulitis US Abd : Cholelithiasis. There is gallbladder wall thickening, likely related to hemodynamic abnormalities Splenomegaly. Evidence of hepatic cirrhosis HIV : NEG Hep Panel B neg , C Ab : +ve , VL not detected leukopenia and TCP 2/2 splenomegaly Seizure disorder History of CVA History of pacemaker placement Hyperlipidemia Hypertension COPD/asthma End-stage renal disease, on hemodialysis Diabetes Anxiety Anemia Echo, ejection fraction 45% to 50%. PLAN: Continue Rocephin d # 5/7 for possible superimposed Providencia PNA Continue PO Voriconazole abx d#10 for possible Aspergillosis pending cultures and fungal serologies -monitor LFTs, QTc -watch for drug-drug interactions -Continue Flagyl (in addition with Levaquin will provide anaerobic coverage for possible aspiration/cavitary and now PsA PNA as no isolation of resistant organisms); abx d# 23/28-42 Continue empiric Ethambutol , amikacin d# 12 and Levaquin d# 13 ( TB Control recs to start TB Rx, doubt that this is needed at his time pt has pt improved initially, w/ups so far neg for TB, has increased of LFT , ) -Will challenge with Rifampin 600mg qd -monitor LFTs 06/20 SP Liposomal Ampho #8 06/17 SP IV Vancomycin #14, Meropenem #5 3/ SP Zosyn d# 10 3/ SP Zithromax D# 6 f/u sputum culture (, fungal, and AFB x3). f/u Coccidioidal ,Galactomannan and Fungitell, Histoplasma ag urine Airborne isolation for now Disposition per Dept of Public Health Subjective Allergies: Coded Allergies: No Known Allergies (Unverified , 10/24/15) Subjective afebrile no leukocytosis LFTs improving fungal serologies pending Objective Vital Signs Last 24 Hour Vital Signs Date Time Temp Pulse Resp B/P (MAP) Pulse Ox O2 Delivery O2 Flow Rate FiO2 06/25/17 16:00 97.3 71 20 117/60 98 97.3 06/25/17 12:14 119/70 06/25/17 12:00 98.1 65 20 119/70 98 98.1 06/25/17 11:36 77 18 Nasal Cannula 5.0 40 06/25/17 11:36 92 Nasal Cannula 5.0 40 06/25/17 11:36 Nasal Cannula 5.0 40 06/25/17 08:15 107/67 06/25/17 08:12 67 107/67 06/25/17 08:00 98.1 67 19 107/67 94 98.1 06/25/17 04:00 98.0 79 20 129/79 98 Nasal Cannula 98.0 06/25/17 02:38 98.6 06/25/17 02:08 98.6 06/24/17 23:59 98.6 79 18 124/73 92 98.6 06/24/17 22:44 94 06/24/17 21:44 70 137/80 06/24/17 21:38 97.9 06/24/17 20:00 97.9 70 19 137/80 95 97.9 06/24/17 19:59 94 Nasal Cannula 5.0 40 06/24/17 19:59 Nasal Cannula 5.0 40 06/24/17 19:58 72 18 Nasal Cannula 5.0 40 06/24/17 17:13 129/82 Height (Feet): 5 Height (Inches): 7.00 Weight (Pounds): 234 Objective General Appearance: WD/WN, alert, moderate distress EENT: PERRL/EOMI, normal ENT inspection Neck: non-tender, normal alignment, supple, normal inspection Cardiovascular: normal peripheral pulses, normal rate, regular rhythm, no gallop/murmur, no JVD Respiratory/Chest: Non rebreather; respiratory distress, crackles/rales, rhonchi - bilaterally, expiratory wheezing Abdomen: normal bowel sounds, non tender, soft, no organomegaly, no mass Extremities: normal range of motion 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, no motor/sensory deficits Skin: normal pigmentation, warm/dry Laboratory Tests Test 06/25/17 06:30 Sodium Level 141 MMOL/L (136-145) Potassium Level 4.0 MMOL/L (3.5-5.1) Chloride Level 101 MMOL/L (98-107) Carbon Dioxide Level 33 MMOL/L (21-32) H Anion Gap 7 mmol/L (5-15) Blood Urea Nitrogen 45 mg/dL (7-18) H Creatinine 10.6 MG/DL (0.55-1.30) H Estimat Glomerular Filtration Rate 6.1 mL/min (>60) Glucose Level 87 MG/DL (74-106) Calcium Level 7.8 MG/DL (8.5-10.1) L Total Bilirubin 0.6 MG/DL (0.2-1.0) Aspartate Amino Transf (AST/SGOT) 17 U/L (15-37) Alanine Aminotransferase (ALT/SGPT) 29 U/L (12-78) Alkaline Phosphatase 145 U/L (46-116) H Total Protein 6.5 G/DL (6.4-8.2) Albumin 2.3 G/DL (3.4-5.0) L Globulin 4.2 g/dL Albumin/Globulin Ratio 0.5 (1.0-2.7) L Hepatitis C Antibody Pending Current Medications Medications (Trade) Dose Ordered Sig/Jose Route PRN Reason Start Time Stop Time Status Last Admin Dose Admin Acetaminophen (Tylenol) 650 mg Q4H PRN RECTAL Mild Pain (Pain Scale 1-3) 06/16/17 19:00 07/09/17 18:59 Alprazolam (Xanax) 2 mg DAILYPRN PRN ORAL For Anxiety 06/24/17 17:00 07/01/17 16:59 06/25/17 03:47 Amikacin Sulfate 950 mg/Sodium Chloride 113.8 ml @ 227.6 mls/ hr FRI-FRI-FRI IV 06/18/17 21:00 06/30/17 20:59 06/23/17 23:16 Carisoprodol (Soma) 350 mg Q6H PRN ORAL MUSCLE SPASMS 06/16/17 19:00 07/14/17 18:59 06/20/17 23:55 Carvedilol (Coreg) 25 mg EVERY 12 HOURS ORAL 06/16/17 21:00 07/04/17 11:29 06/24/17 21:44 Ceftriaxone Sodium 2 gm/ Dextrose 55 ml @ 110 mls/hr Q24H IVPB 06/21/17 20:00 06/28/17 19:59 06/24/17 21:43 Chlorhexidine Gluconate (Imreille-Hex 2%) 1 applic DAILY@2000 TOPIC 06/16/17 20:00 07/05/17 19:59 06/24/17 21:43 Clonidine HCl (Catapres Tab) 0.1 mg Q4H PRN ORAL bp over 160 syst 06/16/17 19:00 07/03/17 18:59 Dextrose 1,000 ml @ 50 mls/hr Q20H IV 06/16/17 19:00 07/14/17 18:59 06/25/17 13:12 Dextrose (Dextrose 50%) STAT PRN IV Hypoglycemia 06/16/17 19:00 07/14/17 18:59 Docusate Sodium (Colace) 100 mg THREE TIMES A DAY ORAL 06/17/17 20:00 07/03/17 19:59 06/25/17 12:14 Ethambutol HCl (Myambutol) 1,000 mg 3XW ORAL 06/18/17 09:00 07/18/17 23:59 06/25/17 08:09 Levofloxacin (Levaquin) 750 mg EVERY OTHER DAY@2000 ORAL 06/17/17 20:00 06/30/17 19:59 06/23/17 20:00 Lisinopril (Prinivil) 20 mg BID ORAL 06/17/17 09:00 07/04/17 08:59 06/24/17 17:13 Metronidazole (Flagyl) 500 mg Q8HR ORAL 06/17/17 22:00 06/30/17 21:59 06/25/17 13:12 Morphine Sulfate (Morphine Sulfate) 2 mg Q4H PRN IVP For Severe Pain 06/24/17 16:30 07/01/17 16:29 06/25/17 16:14 Nitroglycerin (Ntg) 0.4 mg Q5M PRN SL Prn Chest Pain 06/16/17 18:15 07/04/17 09:14 Nitroglycerin (Ntg) 1 patch Q24H TDERMAL 06/17/17 11:30 07/04/17 11:29 06/24/17 11:40 Ondansetron HCl (Zofran) 4 mg Q6H PRN IVP Nausea & Vomiting 06/16/17 18:30 07/14/17 18:29 06/24/17 21:45 Pantoprazole (Protonix) 40 mg ACBREAKFAST ORAL 06/17/17 06:30 07/15/17 06:29 06/25/17 05:10 Polyethylene Glycol (Miralax) 17 gm DAILYPRN PRN ORAL Constipation 06/16/17 18:30 07/14/17 18:29 Promethazine HCl/ Codeine (Phenergan with Codeine) 5 ml Q4H PRN ORAL For Cough 06/16/17 18:30 07/05/17 18:29 Sevelamer Carbonate (Renvela) 2,400 mg THREE TIMES A DAY ORAL 06/16/17 18:45 07/16/17 18:44 06/25/17 12:14 Tobramycin/ Dexamethasone (Tobradex Opth Oint) 1 applic FOUR TIMES A DAY BOTH EYES 06/22/17 18:00 06/28/17 23:59 06/25/17 12:14 Voriconazole (Vfend) 200 mg EVERY 12 HOURS ORAL 06/23/17 21:00 06/30/17 20:59 06/25/17 08:09 Aleja Crocker M.D. Jun 25, 2017 16:54
[2017-06-25 17:00] VITALS: BP 103/63
[2017-06-25 20:00] VITALS: BP 150/76
[2017-06-25] MEDS: cefTRIAXone 2 GM in D5W 55 ML IVPB SCH (20:40)
[2017-06-25] MEDS: Dyna-Hex 2% Top Sol 2oz TOPIC SCH (20:50)
[2017-06-25] MEDS: Amikacin 950 MG in NS 110 ML IV SCH (21:17)
[2017-06-25] MEDS: Micafungin 100 MG in NS 110 ML IVPB SCH (21:18)
--- NOTE | 2017-06-25 23:05 | General Progress Note ---
Assessment/Plan Assessment/Plan Assessment - Anemia - OB (+) Stool - w/u deferred since in isolation - ESRD/HD - DM - HTN - COPD - gallstones - RUQ TTP and improving LFT - abnormal GB ultrasound - cirrhotic appearing liver on CT - Hepatitis C (+) Recommendations - PO as tolerated - monitor LFT - transfuse PRN - Acid blockade - Defer EGD/Colon a this time - re check to confirm HCV Subjective Allergies: Coded Allergies: IODINE AND IODIDE CONTAINING PRODUC (Verified Allergy, Mild, itching and pruritis, 06/25/17) Uncoded Allergies: CONTRAST/DYE (Allergy, Intermediate, PRURITIS AND ITCHING, 06/25/17) Subjective above noted no events overnight denies abd pain tolerating po sitting up advised re OB (+) Stools advised he should f/u as outpatient for GI w/u, once acute illness better Objective Last 24 Hour Vital Signs Date Time Temp Pulse Resp B/P (MAP) Pulse Ox O2 Delivery O2 Flow Rate FiO2 06/25/17 21:11 68 150/76 06/25/17 20:00 98.2 68 16 150/76 100 Venturi Mask 10.0 45 98.2 06/25/17 19:48 95 Venturi Mask 10.0 40 06/25/17 19:48 Venturi Mask 10.0 40 06/25/17 19:47 87 16 Venturi Mask 10.0 40 06/25/17 17:42 117/60 06/25/17 17:00 Room Air 06/25/17 17:00 98.1 72 16 103/63 Room Air 98.1 06/25/17 16:00 97.3 71 20 117/60 98 97.3 06/25/17 12:14 119/70 06/25/17 12:00 98.1 65 20 119/70 98 98.1 06/25/17 11:36 77 18 Nasal Cannula 5.0 40 06/25/17 11:36 92 Nasal Cannula 5.0 40 06/25/17 11:36 Nasal Cannula 5.0 40 06/25/17 08:15 107/67 06/25/17 08:12 67 107/67 06/25/17 08:00 98.1 67 19 107/67 94 98.1 06/25/17 04:00 98.0 79 20 129/79 98 Nasal Cannula 98.0 06/25/17 02:38 98.6 06/25/17 02:08 98.6 06/24/17 23:59 98.6 79 18 124/73 92 98.6 Intake and Output 06/24/17 06/25/17 19:00 07:00 Intake Total 860 ml 600 ml Balance 860 ml 600 ml Intake Oral 360 ml IV Total 500 ml 600 ml # Voids 2 # Bowel Movements 1 1 Laboratory Tests 06/25/17 06:30: Sodium Level 141, Potassium Level 4.0, Chloride Level 101, Carbon Dioxide Level 33H, Anion Gap 7, Blood Urea Nitrogen 45H, Creatinine 10.6H, Estimat Glomerular Filtration Rate 6.1, Glucose Level 87, Calcium Level 7.8L, Total Bilirubin 0.6, Aspartate Amino Transf (AST/SGOT) 17, Alanine Aminotransferase (ALT/SGPT) 29, Alkaline Phosphatase 145H, Total Protein 6.5, Albumin 2.3L, Globulin 4.2, Albumin/Globulin Ratio 0.5L, Hepatitis C Antibody [Pending] Height (Feet): 5 Height (Inches): 7.00 Weight (Pounds): 234 Objective WDWN AA Man NCAT supple CTA RRR Soft mildly distended, (+) improved RUQ TTP No edema PERCY JOYNER Jun 25, 2017 23:05
[2017-06-26] VITALS (8 sets, daily range): BP systolic 100–134; BP diastolic 56–79
[2017-06-26] MEDS: metroNIDAZOLE 500mg tab ORAL SCH ×3 (05:30→20:12)
[2017-06-26 07:52] LABS: HEMOGLOBIN 7.6 G/DL (14.2-18.0); MEAN CORPUSCULAR VOLUME 96 FL (80-99); PLATELET COUNT 112 K/UL (150-450); RED CELL DISTRIBUTION WIDTH 17.7 % (11.6-14.8)
[2017-06-26 08:11] LABS: ALANINE AMINOTRANSFERASE 23 U/L (12-78); ALBUMIN 2.3 G/DL (3.4-5.0); ALBUMIN/GLOBULIN RATIO 0.5 (1.0-2.7); ALKALINE PHOSPHATASE 149 U/L (46-116); ANION GAP 5 mmol/L (5-15); ASPARTATE AMINO TRANSFERASE 23 U/L (15-37); BILIRUBIN,TOTAL 0.7 MG/DL (0.2-1.0); BLOOD UREA NITROGEN 39 mg/dL (7-18); CALCIUM 8.1 MG/DL (8.5-10.1); CARBON DIOXIDE 35 MMOL/L (21-32); CHLORIDE 98 MMOL/L (98-107); CREATININE 9.6 MG/DL (0.55-1.30); SODIUM 138 MMOL/L (136-145)
[2017-06-26 08:13] LABS: PHOSPHORUS 4.7 MG/DL (2.5-4.9)
[2017-06-26] MEDS: Lisinopril 20mg tab ORAL SCH ×2 (08:45→17:01)
[2017-06-26] MEDS: Tobradex Opth Oint 3.5gm BOTH EYES SCH ×4 (08:45→20:11)
[2017-06-26] MEDS: Docusate 100mg cap ORAL SCH ×3 (08:46→17:00)
[2017-06-26] MEDS: Carvedilol 25mg Tab ORAL SCH ×2 (08:47→20:12)
[2017-06-26] MEDS: Morphine Sulfate 2mg/ml Inj IVP PRN ×4 (08:47→21:29)
[2017-06-26] MEDS: ALPRAZolam 0.5mg tab ORAL PRN (10:31)
--- NOTE | 2017-06-26 11:06 | General Progress Note ---
Assessment/Plan Assessment/Plan Assessment - Anemia, multifactorial - OB (+) Stool - w/u deferred due to respiratory status - ESRD/HD - DM - HTN - COPD - gallstones - RUQ TTP and improving LFT - abnormal GB ultrasound - cirrhotic appearing liver on CT - Hepatitis C (+) Recommendations - PO as tolerated - monitor LFT - transfuse PRN - Acid blockade - Defer EGD/Colon a this time Subjective Allergies: Coded Allergies: IODINE AND IODIDE CONTAINING PRODUC (Verified Allergy, Mild, itching and pruritis, 06/25/17) Uncoded Allergies: CONTRAST/DYE (Allergy, Intermediate, PRURITIS AND ITCHING, 06/25/17) Subjective above noted no events overnight denies abd pain tolerating po sitting up advised re OB (+) Stools advised he should f/u as outpatient for GI w/u, once acute illness better Objective Last 24 Hour Vital Signs Date Time Temp Pulse Resp B/P (MAP) Pulse Ox O2 Delivery O2 Flow Rate FiO2 06/26/17 09:24 94 06/26/17 08:47 98.8 06/26/17 08:47 72 122/71 06/26/17 08:45 122/71 06/26/17 08:08 98.8 72 20 122/71 94 98.8 06/26/17 07:45 94 Venturi Mask 10.0 45 06/26/17 07:45 Venturi Mask 10.0 45 06/26/17 07:45 74 18 Venturi Mask 10.0 45 06/26/17 04:00 98.1 65 16 124/79 97 Venturi Mask 10.0 45 98.1 06/26/17 00:00 97.7 77 18 116/66 94 Venturi Mask 10.0 45 97.7 06/25/17 23:18 92 06/25/17 21:11 68 150/76 06/25/17 20:00 98.2 68 16 150/76 100 Venturi Mask 10.0 45 98.2 06/25/17 19:48 95 Venturi Mask 10.0 40 06/25/17 19:48 Venturi Mask 10.0 40 06/25/17 19:47 87 16 Venturi Mask 10.0 40 06/25/17 17:42 117/60 06/25/17 17:00 Room Air 06/25/17 17:00 98.1 72 16 103/63 Room Air 98.1 06/25/17 16:00 97.3 71 20 117/60 98 97.3 06/25/17 12:14 119/70 06/25/17 12:00 98.1 65 20 119/70 98 98.1 06/25/17 11:36 77 18 Nasal Cannula 5.0 40 06/25/17 11:36 92 Nasal Cannula 5.0 40 06/25/17 11:36 Nasal Cannula 5.0 40 Intake and Output 06/25/17 06/26/17 19:00 07:00 Intake Total 1180 ml 180 ml Balance 1180 ml 180 ml Intake Oral 680 ml 180 ml IV Total 500 ml Laboratory Tests 06/26/17 05:15: White Blood Count 6.0, Red Blood Count 2.50L, Hemoglobin 7.6L, Hematocrit 24.0L , Mean Corpuscular Volume 96, Mean Corpuscular Hemoglobin 30.4, Mean Corpuscular Hemoglobin Concent 31.7L, Red Cell Distribution Width 17.7H, Platelet Count 112L, Mean Platelet Volume 6.1L, Neutrophils (%) (Auto) , Lymphocytes (%) (Auto) , Monocytes (%) (Auto) , Eosinophils (%) (Auto) , Basophils (%) (Auto) , Differential Total Cells Counted 100, Neutrophils % ( Manual) 55, Lymphocytes % (Manual) 24, Monocytes % (Manual) 19H, Eosinophils % ( Manual) 1, Basophils % (Manual) 1, Band Neutrophils 0, Platelet Estimate DecreasedL, Platelet Morphology Normal, Anisocytosis 1+, Erythrocyte Sedimentation Rate 84H, Sodium Level 138, Potassium Level 4.0, Chloride Level 98 , Carbon Dioxide Level 35H, Anion Gap 5, Blood Urea Nitrogen 39H, Creatinine 9.6H, Estimat Glomerular Filtration Rate 6.8, Glucose Level 81, Calcium Level 8.1L, Phosphorus Level 4.7, Magnesium Level 2.1, Total Bilirubin 0.7, Aspartate Amino Transf (AST/SGOT) 23, Alanine Aminotransferase (ALT/SGPT) 23, Alkaline Phosphatase 149H, C-Reactive Protein, Quantitative 4.2H, Total Protein 6.7, Albumin 2.3L, Globulin 4.4, Albumin/Globulin Ratio 0.5L Height (Feet): 5 Height (Inches): 7.00 Weight (Pounds): 234 Objective WDWN AA Man NCAT supple CTA RRR Soft mildly distended, (+) improved RUQ TTP No edema PERCY JOYNER Jun 26, 2017 11:06
[2017-06-26] MEDS: Nitroglycerin Patch 0.4mg TDERMAL SCH (11:38)
--- NOTE | 2017-06-26 11:53 | Nephrology Progress Note ---
Assessment/Plan Problem List: (1) ESRD (end stage renal disease) on dialysis (2) Shortness of breath (3) Anemia Assessment worsenning Anemia ESRD , missed HD , admitted with high K and pulmonary edema Acute respiratory distress due to volume overload elevated troponin r/o ACS h/o COPD ? exacerbation HTN urgency Cardiomyopathy L AICD anemia of chronic kidney disease Hx of CVA Plan Plan: Low H&H - consider transfusion HD next 06/27 Transfused Phos binders BP meds adjustment Optimize cardiac status per orders Subjective ROS Limited/Unobtainable: No Constitutional: Reports: malaise Objective Objective Last 24 Hour Vital Signs Date Time Temp Pulse Resp B/P (MAP) Pulse Ox O2 Delivery O2 Flow Rate FiO2 06/26/17 11:38 122/71 06/26/17 09:24 94 06/26/17 08:47 98.8 06/26/17 08:47 72 122/71 06/26/17 08:45 122/71 06/26/17 08:08 98.8 72 20 122/71 94 98.8 06/26/17 07:45 94 Venturi Mask 10.0 45 06/26/17 07:45 Venturi Mask 10.0 45 06/26/17 07:45 74 18 Venturi Mask 10.0 45 06/26/17 04:00 98.1 65 16 124/79 97 Venturi Mask 10.0 45 98.1 06/26/17 00:00 97.7 77 18 116/66 94 Venturi Mask 10.0 45 97.7 06/25/17 23:18 92 06/25/17 21:11 68 150/76 06/25/17 20:00 98.2 68 16 150/76 100 Venturi Mask 10.0 45 98.2 06/25/17 19:48 95 Venturi Mask 10.0 40 06/25/17 19:48 Venturi Mask 10.0 40 06/25/17 19:47 87 16 Venturi Mask 10.0 40 06/25/17 17:42 117/60 06/25/17 17:00 Room Air 06/25/17 17:00 98.1 72 16 103/63 Room Air 98.1 06/25/17 16:00 97.3 71 20 117/60 98 97.3 06/25/17 12:14 119/70 06/25/17 12:00 98.1 65 20 119/70 98 98.1 Intake and Output 06/25/17 06/26/17 19:00 07:00 Intake Total 1180 ml 180 ml Balance 1180 ml 180 ml Intake Oral 680 ml 180 ml IV Total 500 ml Laboratory Tests 06/26/17 05:15: White Blood Count 6.0, Red Blood Count 2.50L, Hemoglobin 7.6L, Hematocrit 24.0L , Mean Corpuscular Volume 96, Mean Corpuscular Hemoglobin 30.4, Mean Corpuscular Hemoglobin Concent 31.7L, Red Cell Distribution Width 17.7H, Platelet Count 112L, Mean Platelet Volume 6.1L, Neutrophils (%) (Auto) , Lymphocytes (%) (Auto) , Monocytes (%) (Auto) , Eosinophils (%) (Auto) , Basophils (%) (Auto) , Differential Total Cells Counted 100, Neutrophils % ( Manual) 55, Lymphocytes % (Manual) 24, Monocytes % (Manual) 19H, Eosinophils % ( Manual) 1, Basophils % (Manual) 1, Band Neutrophils 0, Platelet Estimate DecreasedL, Platelet Morphology Normal, Anisocytosis 1+, Erythrocyte Sedimentation Rate 84H, Sodium Level 138, Potassium Level 4.0, Chloride Level 98 , Carbon Dioxide Level 35H, Anion Gap 5, Blood Urea Nitrogen 39H, Creatinine 9.6H, Estimat Glomerular Filtration Rate 6.8, Glucose Level 81, Calcium Level 8.1L, Phosphorus Level 4.7, Magnesium Level 2.1, Total Bilirubin 0.7, Aspartate Amino Transf (AST/SGOT) 23, Alanine Aminotransferase (ALT/SGPT) 23, Alkaline Phosphatase 149H, C-Reactive Protein, Quantitative 4.2H, Total Protein 6.7, Albumin 2.3L, Globulin 4.4, Albumin/Globulin Ratio 0.5L Height (Feet): 5 Height (Inches): 7.00 Weight (Pounds): 234 General Appearance: no apparent distress Respiratory/Chest: decreased breath sounds Abdomen: distended Objective no change LIAM MONTELONGO Jun 26, 2017 11:53
--- NOTE | 2017-06-26 12:11 | General Progress Note ---
Assessment/Plan Assessment/Plan #. Anemia secondary to chronic disease. --> Hemoglobin levels have been improving, no blood transfusion required --> S/P abd CAT scan revealing evidence of hepatic cirrhosis. --> Hepatosplenomegaly. Ascites. There is also evidence of generalized anasarca , with pleural fluid and generalized subcutaneous edema --> Continue to closely monitor and trend cbc daily. --> Anemia workup completed and reviewed. Iron 42, TIBC 180, Ferritin 593, B12 876. --> Ferritin is >500, hgb goal is >7 --> Anemia w/u has been reviewed --> ++Occult blood. Consider GI Services and Recs. --> Abd pain improved on pain management #. Anemia of kidney disease --> HD as needed per nephrology team --> Monitor closely. #. Generalized body ache related to fluid overload. #. End-stage renal disease, on hemodialysis as needed --> Monitor. S/P HD. #. Tachycardia, to be seen by Cardiology Service, isolated T-wave and ST- segment depression in V6. --> HR has been ~80-90bpm --> S/P Chest CT -- Evidence of worsening CHF/interstitial edema. --> Monitor for improvement. #. Elevated BNP, potentially related to underlying CKD. #. Cardiomegaly. S/P Chest Xray --> Persistent but slightly decreased size of known right lung cavitary lesion. --> Persistent extensive interstitial and bilateral airspace opacities. Subjective Date patient seen: Jun 25, 2017 Constitutional: Denies: no symptoms, chills, diaphoresis, fever, malaise, weakness, other HEENT: Denies: no symptoms, eye pain, blurred vision, tearing, double vision, ear pain, ear discharge, nose pain, nose congestion, throat pain, throat swelling, mouth pain, mouth swelling, other Cardiovascular: Denies: no symptoms, chest pain, edema, irregular heart rate, lightheadedness, palpitations, syncope, other Respiratory: Denies: no symptoms, cough, orthopnea, shortness of breath, SOB with excertion, SOB at rest, sputum, stridor, wheezing, other Gastrointestinal/Abdominal: Denies: no symptoms, abdomen distended, abdominal pain, black stools, tarry stools, blood in stool, constipated, diarrhea, difficulty swallowing, nausea, poor appetite, poor fluid intake, rectal bleeding , vomiting, other Genitourinary: Denies: no symptoms, burning, discharge, frequency, flank pain, hematuria, incontinence, pain, urgency, other Neurologic/Psychiatric: Denies: no symptoms, anxiety, depressed, emotional problems, headache, numbness, paresthesia, pre-existing deficit, seizure, tingling, tremors, weakness, other Hematologic/Lymphatic: Reports: anemia Allergies: Coded Allergies: IODINE AND IODIDE CONTAINING PRODUC (Verified Allergy, Mild, itching and pruritis, 06/25/17) Uncoded Allergies: CONTRAST/DYE (Allergy, Intermediate, PRURITIS AND ITCHING, 06/25/17) Subjective Abd pain improved. H/H improving. NAD Objective Last 24 Hour Vital Signs Date Time Temp Pulse Resp B/P (MAP) Pulse Ox O2 Delivery O2 Flow Rate FiO2 06/26/17 11:38 122/71 06/26/17 09:24 94 06/26/17 08:47 98.8 06/26/17 08:47 72 122/71 06/26/17 08:45 122/71 06/26/17 08:08 98.8 72 20 122/71 94 98.8 06/26/17 07:45 94 Venturi Mask 10.0 45 06/26/17 07:45 Venturi Mask 10.0 45 06/26/17 07:45 74 18 Venturi Mask 10.0 45 06/26/17 04:00 98.1 65 16 124/79 97 Venturi Mask 10.0 45 98.1 06/26/17 00:00 97.7 77 18 116/66 94 Venturi Mask 10.0 45 97.7 06/25/17 23:18 92 06/25/17 21:11 68 150/76 06/25/17 20:00 98.2 68 16 150/76 100 Venturi Mask 10.0 45 98.2 06/25/17 19:48 95 Venturi Mask 10.0 40 06/25/17 19:48 Venturi Mask 10.0 40 06/25/17 19:47 87 16 Venturi Mask 10.0 40 06/25/17 17:42 117/60 06/25/17 17:00 Room Air 06/25/17 17:00 98.1 72 16 103/63 Room Air 98.1 06/25/17 16:00 97.3 71 20 117/60 98 97.3 06/25/17 12:14 119/70 Intake and Output 06/25/17 06/26/17 19:00 07:00 Intake Total 1180 ml 180 ml Balance 1180 ml 180 ml Intake Oral 680 ml 180 ml IV Total 500 ml Laboratory Tests 06/26/17 05:15: White Blood Count 6.0, Red Blood Count 2.50L, Hemoglobin 7.6L, Hematocrit 24.0L , Mean Corpuscular Volume 96, Mean Corpuscular Hemoglobin 30.4, Mean Corpuscular Hemoglobin Concent 31.7L, Red Cell Distribution Width 17.7H, Platelet Count 112L, Mean Platelet Volume 6.1L, Neutrophils (%) (Auto) , Lymphocytes (%) (Auto) , Monocytes (%) (Auto) , Eosinophils (%) (Auto) , Basophils (%) (Auto) , Differential Total Cells Counted 100, Neutrophils % ( Manual) 55, Lymphocytes % (Manual) 24, Monocytes % (Manual) 19H, Eosinophils % ( Manual) 1, Basophils % (Manual) 1, Band Neutrophils 0, Platelet Estimate DecreasedL, Platelet Morphology Normal, Anisocytosis 1+, Erythrocyte Sedimentation Rate 84H, Sodium Level 138, Potassium Level 4.0, Chloride Level 98 , Carbon Dioxide Level 35H, Anion Gap 5, Blood Urea Nitrogen 39H, Creatinine 9.6H, Estimat Glomerular Filtration Rate 6.8, Glucose Level 81, Calcium Level 8.1L, Phosphorus Level 4.7, Magnesium Level 2.1, Total Bilirubin 0.7, Aspartate Amino Transf (AST/SGOT) 23, Alanine Aminotransferase (ALT/SGPT) 23, Alkaline Phosphatase 149H, C-Reactive Protein, Quantitative 4.2H, Total Protein 6.7, Albumin 2.3L, Globulin 4.4, Albumin/Globulin Ratio 0.5L Height (Feet): 5 Height (Inches): 7.00 Weight (Pounds): 234 General Appearance: no apparent distress, confused Respiratory/Chest: decreased breath sounds Abdomen: soft Irving Parker MD Jun 26, 2017 12:11
--- NOTE | 2017-06-26 14:41 | Diagnostic Imaging Report ---
Clinical Indication: Shortness of breath, cough, follow-up of prior abnormal CT scan Technique: Spiral acquisitions obtained through the chest. No IV contrast utilized, . Multiplanar reconstructions generated. Total dose length product 946.49 mGycm. CTDIvol(s) 25.48 mGy. Dose reduction achieved using automated exposure control Comparison: 06/15/2017 . Findings: Again demonstrated is a right lung mass, located in the inferior posterior right upper lobe. This currently measures 6 cm AP by 5.2 cm transverse by 3.9 cm craniocaudad, previously approximately 7.8 x 4.9 x 5.2 cm. The 2 larger central cavities of combined. The smaller central cavity appears unchanged. The boundaries of the tumor appear better delineated, as there is markedly improved aeration of the adjoining lung, particularly of the adjacent right lower lobe but also of the adjacent right middle and upper lobes. There is decreased but persistent pleural fluid on the right. There is still persistent linear opacities within the right middle and lower lobes as well as groundglass opacity throughout much of the right upper and lower lobes. There is a 6 mm nodular opacity in the right upper lobe, image 17 series 5, not evident previously but likely obscured by surrounding atelectatic lung parenchyma. There is markedly improved aeration of the left lung. Previously demonstrated left lung dense consolidation has resolved, with some residual groundglass opacity present within the left lower lobe. Reticular opacities in the upper and lower lobes have improved considerably. Bands of atelectasis are seen in the upper and lower lobes currently. There is no evidence of pleural fluid on the left. The heart is enlarged. There is a pacemaker. No pericardial effusion. No definite mediastinal or hilar mass or adenopathy. Previously questioned right hilar adenopathy is less apparent currently, although evaluation for such is limited in the absence of IV contrast administration Ectatic main, right, and left pulmonary arteries are again demonstrated. Esophagus is somewhat gas-filled, otherwise unremarkable. There is diffuse edema of the subcutaneous fat, which appears slightly increased from the prior exam. The thyroid is heterogeneous, demonstrates a calcified nodule on the left. There is a right jugular central venous catheter again demonstrated. Mild bilateral gynecomastia is unchanged Limited views of the upper abdomen demonstrate a small amount of ascites fluid. The liver may be enlarged. The bones are unremarkable except for mild degenerative spondylosis changes. Impression: Since the prior study of 06/15/2017, and. From further reduction in size of previously demonstrated thick walled right upper lobe cavitary mass. This was previously thought to most likely represent a cavitary inflammatory mass, and the interim reduction in size certainly supports that. Much less likely a cavitary neoplasm, but follow-up to resolution is recommended Markedly improved parenchymal disease bilaterally, since the previous study. Nonetheless, extensive atelectasis and groundglass consolidation persists. Persistent small right pleural effusion, smaller than on the prior study. Resolved left pleural effusion 6 mm nodular opacity in the right upper lobe, not evident previously but likely obscured by surrounding consolidated lung parenchyma. This should be followed up in 6 months to one year depending on results of interim follow-up exams Mild pulmonary arterial dilatation, could indicate pulmonary arterial hypertension Diffuse edema of the subcutaneous fat, somewhat increased since prior exam Ascites, also previously reported cardiomegaly and pacemaker, also previously reported Other findings as noted, including degenerative spondylosis, right jugular central venous catheter, heterogeneous thyroid, mild gynecomastia The CT scanner at [facility] is accredited by the [employer] [place] [employer] and the scans are performed using protocols designed to limit radiation exposure to as low as reasonably achievable to attain images of sufficient resolution adequate for diagnostic evaluation.
--- NOTE | 2017-06-26 16:10 | Infectious Diseases Prog Note ---
Assessment/Plan Assessment/Plan A: Cavitary PNA. SCx: Neg ( m/l necrotizing Pneum, r/o Fungal, r/o TB ) ; improving -CT chest 06/25: Since the prior study of 06/15/2017, and. From further reduction in size of previously demonstrated thick walled right upper lobe cavitary mass. This was previously thought to most likely represent a cavitary inflammatory mass, and the interim reduction in size certainly supports that. Much less likely a cavitary neoplasm, but follow-up to resolution is recommended. Markedly improved parenchymal disease bilaterally, since the previous study. Nonetheless , extensive atelectasis and groundglass consolidation persists. Persistent small right pleural effusion, smaller than on the prior study. Resolved left pleural effusion 6 mm nodular opacity in the right upper lobe, not evident previously but likely obscured by surrounding consolidated lung parenchyma. This should be followed up in 6 months to one year depending on results of interim follow-up exams -CXR 06/21: Persistent but slightly decreased size of known right lung cavitary lesion. Persistent extensive interstitial and bilateral airspace opacities. -sp cx 06/05, 06/06 normal resp jordin; repeat sp cx 06/18 PsA (singh S) + Providencia stuarti (S Ceftriaxone, R Cipro) (likely superinfection/HCAP) Rsp status improved but on 06/[address] his condition worsen T-SPOT :Neg AFB x 3 : Neg MTB PCR x2 : neg cryptococcus Ag, Histoplams mycelial Ab , Blastomyces ab : neg ; histoplasma yeast ab (not able to be done due to anticomplemenatry activity) -Cocci, Asp ag, fungitell pending 06/21 Xray : improvement of cavity CT chest 06/15: Slightly smaller (6 cm diameter ) but mostly unchanged cavitary lesion in the right lung, previously thought to represent a cavitating inflammatory process. Lung abscess is certainly a possibility. Fairly extensive bilateral pulmonary parenchymal consolidation, slightly increased from previous exam of 06/05/2017. Likely a combination of pulmonary edema and pneumonia. Small right and trace left pleural effusion, new/increased from the previous study. CT 06/05: 7.8 x 5.3 x 6.6 cm dense opacity in the posterior inferior right upper lobe with a central cavitation. Chest x-ray : right mid lung infiltrate, possible cavitation Rule out tuberculosis, fungal infection, or necrotizing pneumonia. CRP 14 Influenza negative Low-grade fever, SP Status post leukocytosis. Transaminitis ,? 2/2 Hep C cirrhosis- no active Hep C as VL not detected -CT abd/p: Evidence of hepatic cirrhosis. Hepatosplenomegaly. evidence of generalized anasarca, with pleural fluid and generalized subcutaneous edema. Cholelithiasis, also previously reported. Possible diverticulosis. No evidence of diverticulitis US Abd : Cholelithiasis. There is gallbladder wall thickening, likely related to hemodynamic abnormalities Splenomegaly. Evidence of hepatic cirrhosis HIV : NEG Hep Panel B neg , C Ab : +ve , VL not detected leukopenia and TCP 2/2 splenomegaly Seizure disorder History of CVA History of pacemaker placement Hyperlipidemia Hypertension COPD/asthma End-stage renal disease, on hemodialysis Diabetes Anxiety Anemia Echo, ejection fraction 45% to 50%. PLAN: Continue Rocephin d # 6/7-10 for possible superimposed Providencia PNA Continue Micafungin abx d#12 (switched from voriconazole given drug-drug interaction with Rifampin) for possible Aspergillosis pending cultures and fungal serologies -Continue Flagyl (in addition with Levaquin will provide anaerobic coverage for possible aspiration/cavitary and now PsA PNA as no isolation of resistant organisms); abx d# 24/28-42 Continue empiric Ethambutol , amikacin d# 13 and Levaquin d# 14 empiric for TB pending cultures -Will challenge with Rifampin 600mg qd #2; if LFTs remains stable in the next few days, will d/c Amikacin -monitor LFTs 06/25 SP PO Voriconazole #3 3/16 SP Liposomal Ampho #8 3/13 SP IV Vancomycin #14, Meropenem #5 3/9 SP Zosyn d# 10 3/4 SP Zithromax D# 6 f/u sputum culture (, fungal, and AFB x3). f/u Coccidioidal ,Galactomannan and Fungitell, Histoplasma ag urine Airborne isolation for now Disposition per Dept of Public Health Subjective Allergies: Coded Allergies: IODINE AND IODIDE CONTAINING PRODUC (Verified Allergy, Mild, itching and pruritis, 06/25/17) Uncoded Allergies: CONTRAST/DYE (Allergy, Intermediate, PRURITIS AND ITCHING, 06/25/17) Subjective afebrile no leukocytosis CT chest cavitary lession improved LFTs stable on Rifampin Objective Vital Signs Last 24 Hour Vital Signs Date Time Temp Pulse Resp B/P (MAP) Pulse Ox O2 Delivery O2 Flow Rate FiO2 06/26/17 12:00 98.1 70 20 119/69 94 98.1 06/26/17 11:38 122/71 06/26/17 09:24 94 06/26/17 08:47 98.8 06/26/17 08:47 72 122/71 06/26/17 08:45 122/71 06/26/17 08:08 98.8 72 20 122/71 94 98.8 06/26/17 07:45 94 Venturi Mask 10.0 45 06/26/17 07:45 Venturi Mask 10.0 45 06/26/17 07:45 74 18 Venturi Mask 10.0 45 06/26/17 04:00 98.1 65 16 124/79 97 Venturi Mask 10.0 45 98.1 06/26/17 00:00 97.7 77 18 116/66 94 Venturi Mask 10.0 45 97.7 06/25/17 23:18 92 06/25/17 21:11 68 150/76 06/25/17 20:00 98.2 68 16 150/76 100 Venturi Mask 10.0 45 98.2 06/25/17 19:48 95 Venturi Mask 10.0 40 06/25/17 19:48 Venturi Mask 10.0 40 06/25/17 19:47 87 16 Venturi Mask 10.0 40 06/25/17 17:42 117/60 06/25/17 17:00 Room Air 06/25/17 17:00 98.1 72 16 103/63 Room Air 98.1 06/25/17 16:00 97.3 71 20 117/60 98 97.3 Height (Feet): 5 Height (Inches): 7.00 Weight (Pounds): 234 Objective General Appearance: WD/WN, alert, moderate distress EENT: PERRL/EOMI, normal ENT inspection Neck: non-tender, normal alignment, supple, normal inspection Cardiovascular: normal peripheral pulses, normal rate, regular rhythm, no gallop/murmur, no JVD Respiratory/Chest: Non rebreather; respiratory distress, crackles/rales, rhonchi - bilaterally, expiratory wheezing Abdomen: normal bowel sounds, non tender, soft, no organomegaly, no mass Extremities: normal range of motion 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, no motor/sensory deficits Skin: normal pigmentation, warm/dry Laboratory Tests Test 06/26/17 05:15 White Blood Count 6.0 K/UL (4.8-10.8) Red Blood Count 2.50 M/UL (4.70-6.10) L Hemoglobin 7.6 G/DL (14.2-18.0) L Hematocrit 24.0 % (42.0-52.0) L Mean Corpuscular Volume 96 FL (80-99) Mean Corpuscular Hemoglobin 30.4 PG (27.0-31.0) Mean Corpuscular Hemoglobin Concent 31.7 G/DL (32.0-36.0) L Red Cell Distribution Width 17.7 % (11.6-14.8) H Platelet Count 112 K/UL (150-450) L Mean Platelet Volume 6.1 FL (6.5-10.1) L Neutrophils (%) (Auto) % (45.0-75.0) Lymphocytes (%) (Auto) % (20.0-45.0) Monocytes (%) (Auto) % (1.0-10.0) Eosinophils (%) (Auto) % (0.0-3.0) Basophils (%) (Auto) % (0.0-2.0) Differential Total Cells Counted 100 Neutrophils % (Manual) 55 % (45-75) Lymphocytes % (Manual) 24 % (20-45) Monocytes % (Manual) 19 % (1-10) H Eosinophils % (Manual) 1 % (0-3) Basophils % (Manual) 1 % (0-2) Band Neutrophils 0 % (0-8) Platelet Estimate Decreased L Platelet Morphology Normal Anisocytosis 1+ Erythrocyte Sedimentation Rate 84 MM/HR (0-20) H Sodium Level 138 MMOL/L (136-145) Potassium Level 4.0 MMOL/L (3.5-5.1) Chloride Level 98 MMOL/L (98-107) Carbon Dioxide Level 35 MMOL/L (21-32) H Anion Gap 5 mmol/L (5-15) Blood Urea Nitrogen 39 mg/dL (7-18) H Creatinine 9.6 MG/DL (0.55-1.30) H Estimat Glomerular Filtration Rate 6.8 mL/min (>60) Glucose Level 81 MG/DL (74-106) Calcium Level 8.1 MG/DL (8.5-10.1) L Phosphorus Level 4.7 MG/DL (2.5-4.9) Magnesium Level 2.1 MG/DL (1.8-2.4) Total Bilirubin 0.7 MG/DL (0.2-1.0) Aspartate Amino Transf (AST/SGOT) 23 U/L (15-37) Alanine Aminotransferase (ALT/SGPT) 23 U/L (12-78) Alkaline Phosphatase 149 U/L (46-116) H C-Reactive Protein, Quantitative 4.2 mg/dL (0.00-0.90) H Total Protein 6.7 G/DL (6.4-8.2) Albumin 2.3 G/DL (3.4-5.0) L Globulin 4.4 g/dL Albumin/Globulin Ratio 0.5 (1.0-2.7) L Current Medications Medications (Trade) Dose Ordered Sig/Jose Route PRN Reason Start Time Stop Time Status Last Admin Dose Admin Acetaminophen (Tylenol) 650 mg Q4H PRN RECTAL Mild Pain (Pain Scale 1-3) 06/16/17 19:00 07/09/17 18:59 Alprazolam (Xanax) 2 mg DAILYPRN PRN ORAL For Anxiety 06/24/17 17:00 07/01/17 16:59 06/26/17 10:31 Amikacin Sulfate 950 mg/Sodium Chloride 113.8 ml @ 227.6 mls/ hr FRI-FRI-FRI IV 06/18/17 21:00 06/30/17 20:59 06/25/17 21:17 Carisoprodol (Soma) 350 mg Q6H PRN ORAL MUSCLE SPASMS 06/16/17 19:00 07/14/17 18:59 06/20/17 23:55 Carvedilol (Coreg) 25 mg EVERY 12 HOURS ORAL 06/16/17 21:00 07/04/17 11:29 06/26/17 08:47 Ceftriaxone Sodium 2 gm/ Dextrose 55 ml @ 110 mls/hr Q24H IVPB 06/21/17 20:00 06/28/17 19:59 06/25/17 20:40 Chlorhexidine Gluconate (Mireille-Hex 2%) 1 applic DAILY@1999 TOPIC 06/16/17 20:00 07/05/17 19:59 06/25/17 20:50 Clonidine HCl (Catapres Tab) 0.1 mg Q4H PRN ORAL bp over 160 syst 06/16/17 19:00 07/03/17 18:59 Dextrose 1,000 ml @ 50 mls/hr Q20H IV 06/16/17 19:00 07/14/17 18:59 06/25/17 13:12 Dextrose (Dextrose 50%) STAT PRN IV Hypoglycemia 06/16/17 19:00 07/14/17 18:59 Docusate Sodium (Colace) 100 mg THREE TIMES A DAY ORAL 06/17/17 20:00 07/03/17 19:59 06/26/17 12:22 Ethambutol HCl (Myambutol) 1,000 mg 3XW ORAL 06/18/17 09:00 07/18/17 23:59 06/25/17 08:09 Levofloxacin (Levaquin) 750 mg EVERY OTHER DAY@1999 ORAL 06/17/17 20:00 06/30/17 19:59 06/25/17 21:07 Lisinopril (Prinivil) 20 mg BID ORAL 06/17/17 09:00 07/04/17 08:59 06/26/17 08:45 Metronidazole (Flagyl) 500 mg Q8HR ORAL 06/17/17 22:00 06/30/17 21:59 06/26/17 13:15 Micafungin Sodium 100 mg/Sodium Chloride 110 ml @ 110 mls/hr Q24H IVPB 06/25/17 20:00 07/02/17 23:59 06/25/17 21:18 Morphine Sulfate (Morphine Sulfate) 2 mg Q4H PRN IVP For Severe Pain 06/24/17 16:30 07/01/17 16:29 06/26/17 13:15 Nitroglycerin (Ntg) 0.4 mg Q5M PRN SL Prn Chest Pain 06/16/17 18:15 07/04/17 09:14 Nitroglycerin (Ntg) 1 patch Q24H TDERMAL 06/17/17 11:30 07/04/17 11:29 06/26/17 11:38 Ondansetron HCl (Zofran) 4 mg Q6H PRN IVP Nausea & Vomiting 06/16/17 18:30 07/14/17 18:29 06/24/17 21:45 Pantoprazole (Protonix) 40 mg ACBREAKFAST ORAL 06/17/17 06:30 07/15/17 06:29 06/26/17 06:54 Polyethylene Glycol (Miralax) 17 gm DAILYPRN PRN ORAL Constipation 06/16/17 18:30 07/14/17 18:29 Promethazine HCl/ Codeine (Phenergan with Codeine) 5 ml Q4H PRN ORAL For Cough 06/16/17 18:30 07/05/17 18:29 Rifampin (Rifadin) 600 mg DAILY ORAL 06/25/17 17:00 07/25/17 16:59 06/25/17 17:42 Sevelamer Carbonate (Renvela) 2,400 mg THREE TIMES A DAY ORAL 06/16/17 18:45 07/16/17 18:44 06/26/17 12:22 Tobramycin/ Dexamethasone (Tobradex Opth Oint) 1 applic FOUR TIMES A DAY BOTH EYES 06/22/17 18:00 06/28/17 23:59 06/26/17 12:21 Aleja Crocker M.D. Jun 26, 2017 16:10
--- NOTE | 2017-06-26 18:07 | Internal Med Progress Note ---
Subjective Date of Service: Jun 26, 2017 Physician Name PiresZoey Attending Physician Chaitanya Weinstein MD Current Medications Medications (Trade) Dose Ordered Sig/Jose Route PRN Reason Start Time Stop Time Status Last Admin Dose Admin Acetaminophen (Tylenol) 650 mg Q4H PRN RECTAL Mild Pain (Pain Scale 1-3) 06/16/17 19:00 07/09/17 18:59 Alprazolam (Xanax) 2 mg DAILYPRN PRN ORAL For Anxiety 06/24/17 17:00 07/01/17 16:59 06/26/17 10:31 Amikacin Sulfate 950 mg/Sodium Chloride 113.8 ml @ 227.6 mls/ hr FRI-FRI-FRI IV 06/18/17 21:00 06/30/17 20:59 06/25/17 21:17 Carisoprodol (Soma) 350 mg Q6H PRN ORAL MUSCLE SPASMS 06/16/17 19:00 07/14/17 18:59 06/20/17 23:55 Carvedilol (Coreg) 25 mg EVERY 12 HOURS ORAL 06/16/17 21:00 07/04/17 11:29 06/26/17 08:47 Ceftriaxone Sodium 2 gm/ Dextrose 55 ml @ 110 mls/hr Q24H IVPB 06/21/17 20:00 06/28/17 19:59 06/25/17 20:40 Chlorhexidine Gluconate (Mireille-Hex 2%) 1 applic DAILY@2000 TOPIC 06/16/17 20:00 07/05/17 19:59 06/25/17 20:50 Clonidine HCl (Catapres Tab) 0.1 mg Q4H PRN ORAL bp over 160 syst 06/16/17 19:00 07/03/17 18:59 Dextrose 1,000 ml @ 50 mls/hr Q20H IV 06/16/17 19:00 07/14/17 18:59 06/25/17 13:12 Dextrose (Dextrose 50%) STAT PRN IV Hypoglycemia 06/16/17 19:00 07/14/17 18:59 Docusate Sodium (Colace) 100 mg THREE TIMES A DAY ORAL 06/17/17 20:00 07/03/17 19:59 06/26/17 17:00 Ethambutol HCl (Myambutol) 1,000 mg 3XW ORAL 06/18/17 09:00 07/18/17 23:59 06/25/17 08:09 Levofloxacin (Levaquin) 750 mg EVERY OTHER DAY@2000 ORAL 06/17/17 20:00 06/30/17 19:59 06/25/17 21:07 Lisinopril (Prinivil) 20 mg BID ORAL 06/17/17 09:00 07/04/17 08:59 06/26/17 17:01 Metronidazole (Flagyl) 500 mg Q8HR ORAL 06/17/17 22:00 06/30/17 21:59 06/26/17 13:15 Micafungin Sodium 100 mg/Sodium Chloride 110 ml @ 110 mls/hr Q24H IVPB 06/25/17 20:00 07/02/17 23:59 06/25/17 21:18 Morphine Sulfate (Morphine Sulfate) 2 mg Q4H PRN IVP For Severe Pain 06/24/17 16:30 07/01/17 16:29 06/26/17 16:57 Nitroglycerin (Ntg) 0.4 mg Q5M PRN SL Prn Chest Pain 06/16/17 18:15 07/04/17 09:14 Nitroglycerin (Ntg) 1 patch Q24H TDERMAL 06/17/17 11:30 07/04/17 11:29 06/26/17 11:38 Ondansetron HCl (Zofran) 4 mg Q6H PRN IVP Nausea & Vomiting 06/16/17 18:30 07/14/17 18:29 06/24/17 21:45 Pantoprazole (Protonix) 40 mg ACBREAKFAST ORAL 06/17/17 06:30 07/15/17 06:29 06/26/17 06:54 Polyethylene Glycol (Miralax) 17 gm DAILYPRN PRN ORAL Constipation 06/16/17 18:30 07/14/17 18:29 Promethazine HCl/ Codeine (Phenergan with Codeine) 5 ml Q4H PRN ORAL For Cough 06/16/17 18:30 07/05/17 18:29 Rifampin (Rifadin) 600 mg DAILY ORAL 06/25/17 17:00 07/25/17 16:59 06/25/17 17:42 Sevelamer Carbonate (Renvela) 2,400 mg THREE TIMES A DAY ORAL 06/16/17 18:45 07/16/17 18:44 06/26/17 17:00 Tobramycin/ Dexamethasone (Tobradex Opth Oint) 1 applic FOUR TIMES A DAY BOTH EYES 06/22/17 18:00 06/28/17 23:59 06/26/17 17:00 Allergies: Coded Allergies: IODINE AND IODIDE CONTAINING PRODUC (Verified Allergy, Mild, itching and pruritis, 06/25/17) Uncoded Allergies: CONTRAST/DYE (Allergy, Intermediate, PRURITIS AND ITCHING, 06/25/17) ROS Limited/Unobtainable: No Constitutional: Reports: no symptoms HEENT: Reports: no symptoms Cardiovascular: Reports: no symptoms Respiratory: Reports: shortness of breath Gastrointestinal/Abdominal: Reports: no symptoms Genitourinary: Reports: no symptoms Neurologic/Psychiatric: Reports: no symptoms Subjective 57 YO M admitted with chest pain and shortness of breath. Now pneumonia and candelaria heart failure. Tolerating nasal canula. Cover for Int Misbah-Dr Weinstein. Hemodialysis today 06/25 Objective Last Vital Signs Date Time Temp Pulse Resp B/P (MAP) Pulse Ox O2 Delivery O2 Flow Rate FiO2 06/26/17 17:01 134/77 06/26/17 16:45 Room Air 06/26/17 16:45 98.5 58 20 98.5 06/26/17 16:00 94 06/26/17 07:45 10.0 45 Laboratory Tests Test 06/26/17 05:15 06/26/17 16:37 White Blood Count 6.0 K/UL (4.8-10.8) Red Blood Count 2.50 M/UL (4.70-6.10) L Hemoglobin 7.6 G/DL (14.2-18.0) L Hematocrit 24.0 % (42.0-52.0) L Mean Corpuscular Volume 96 FL (80-99) Mean Corpuscular Hemoglobin 30.4 PG (27.0-31.0) Mean Corpuscular Hemoglobin Concent 31.7 G/DL (32.0-36.0) L Red Cell Distribution Width 17.7 % (11.6-14.8) H Platelet Count 112 K/UL (150-450) L Mean Platelet Volume 6.1 FL (6.5-10.1) L Neutrophils (%) (Auto) % (45.0-75.0) Lymphocytes (%) (Auto) % (20.0-45.0) Monocytes (%) (Auto) % (1.0-10.0) Eosinophils (%) (Auto) % (0.0-3.0) Basophils (%) (Auto) % (0.0-2.0) Differential Total Cells Counted 100 Neutrophils % (Manual) 55 % (45-75) Lymphocytes % (Manual) 24 % (20-45) Monocytes % (Manual) 19 % (1-10) H Eosinophils % (Manual) 1 % (0-3) Basophils % (Manual) 1 % (0-2) Band Neutrophils 0 % (0-8) Platelet Estimate Decreased L Platelet Morphology Normal Anisocytosis 1+ Erythrocyte Sedimentation Rate 84 MM/HR (0-20) H Sodium Level 138 MMOL/L (136-145) Potassium Level 4.0 MMOL/L (3.5-5.1) Chloride Level 98 MMOL/L (98-107) Carbon Dioxide Level 35 MMOL/L (21-32) H Anion Gap 5 mmol/L (5-15) Blood Urea Nitrogen 39 mg/dL (7-18) H Creatinine 9.6 MG/DL (0.55-1.30) H Estimat Glomerular Filtration Rate 6.8 mL/min (>60) Glucose Level 81 MG/DL (74-106) Calcium Level 8.1 MG/DL (8.5-10.1) L Phosphorus Level 4.7 MG/DL (2.5-4.9) Magnesium Level 2.1 MG/DL (1.8-2.4) Total Bilirubin 0.7 MG/DL (0.2-1.0) Aspartate Amino Transf (AST/SGOT) 23 U/L (15-37) Alanine Aminotransferase (ALT/SGPT) 23 U/L (12-78) Alkaline Phosphatase 149 U/L (46-116) H C-Reactive Protein, Quantitative 4.2 mg/dL (0.00-0.90) H Total Protein 6.7 G/DL (6.4-8.2) Albumin 2.3 G/DL (3.4-5.0) L Globulin 4.4 g/dL Albumin/Globulin Ratio 0.5 (1.0-2.7) L Aspergillus galactomannan Antigen Pending Intake and Output 06/25/17 06/26/17 19:00 07:00 Intake Total 1180 ml 180 ml Balance 1180 ml 180 ml Intake Oral 680 ml 180 ml IV Total 500 ml Objective General Appearance: WD/WN, alert, moderate distress EENT: PERRL/EOMI, normal ENT inspection Neck: non-tender, normal alignment, supple, normal inspection Cardiovascular: normal peripheral pulses, normal rate, regular rhythm, no gallop/murmur, no JVD Respiratory/Chest: Nasal canula; respiratory distress, crackles/rales, rhonchi - bilaterally, expiratory wheezing Abdomen: normal bowel sounds, non tender, soft, no organomegaly, no mass Extremities: normal range of motion 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 Currently on nasal canula. See pulmonay note. (2) Pleuritic chest pain (3) Hemoptysis Assessment & Plan: Due to pneumonia (4) Pneumonia Assessment & Plan: Providencia and pseudamonas. RUL and cavitary. Concerning for TB. Await AFB cultures-see ID consult. Continue vanco and ethambutol per ID. Continue rocephin, micafungin, flagyl, amikacin, levaquin, and rifampin (5) Shortness of breath (6) ESRD (end stage renal disease) on dialysis Assessment & Plan: See nephrology note. Hemodialysis 06/25/17 per nephrology (7) Hyperkalemia Assessment & Plan: Due to renal failure. Hemodialysis 06/12/17 per nephrology (8) COPD (chronic obstructive pulmonary disease) (9) HTN (hypertension) Assessment & Plan: Continue coreg and lisinopril. (10) CHF (congestive heart failure) (11) Elevated troponin Assessment & Plan: ?due to renal failure? See cardiology note. (12) Intractable abdominal pain Assessment & Plan: See surgery note. Await CT abdomen (13) Conjunctivitis Assessment & Plan: start tobramycin ZOEY PIRES Jun 26, 2017 18:06
[2017-06-26] MEDS: Dyna-Hex 2% Top Sol 2oz TOPIC SCH (20:11)
[2017-06-26] MEDS: cefTRIAXone 2 GM in D5W 55 ML IVPB SCH (20:11)
[2017-06-26] MEDS: Micafungin 100 MG in NS 110 ML IVPB SCH (21:09)
--- NOTE | 2017-06-26 22:21 | Pulmonology Progress Note ---
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 From further reduction in size of previously demonstrated thick walled right upper lobe cavitary mass. This was previously thought to most likely represent a cavitary inflammatory mass, and the interim reduction in size certainly supports that. Much less likely a cavitary neoplasm, but follow-up to resolution is recommended Subjective ROS Limited/Unobtainable: No Allergies: Coded Allergies: IODINE AND IODIDE CONTAINING PRODUC (Verified Allergy, Mild, itching and pruritis, 06/25/17) Uncoded Allergies: CONTRAST/DYE (Allergy, Intermediate, PRURITIS AND ITCHING, 06/25/17) Objective Last 24 Hour Vital Signs Date Time Temp Pulse Resp B/P (MAP) Pulse Ox O2 Delivery O2 Flow Rate FiO2 06/26/17 22:08 82 18 93 06/26/17 21:59 97.2 06/26/17 21:29 97.2 06/26/17 20:12 68 117/68 06/26/17 20:09 97.2 68 20 117/68 99 Room Air 97.2 06/26/17 19:28 92 Venturi Mask 10.0 45 06/26/17 19:28 63 18 Venturi Mask 10.0 45 06/26/17 19:28 Venturi Mask 10.0 45 06/26/17 17:01 134/77 06/26/17 16:45 Room Air 06/26/17 16:45 98.5 58 20 100/56 Room Air 98.5 06/26/17 16:00 98.1 71 18 134/77 94 98.1 06/26/17 13:00 98.1 58 20 130/77 Room Air 98.1 06/26/17 13:00 Room Air 06/26/17 12:00 98.1 70 20 119/69 94 98.1 06/26/17 11:38 122/71 06/26/17 09:24 94 06/26/17 08:47 98.8 06/26/17 08:47 72 122/71 06/26/17 08:45 122/71 06/26/17 08:08 98.8 72 20 122/71 94 98.8 06/26/17 07:45 94 Venturi Mask 10.0 45 06/26/17 07:45 Venturi Mask 10.0 45 06/26/17 07:45 74 18 Venturi Mask 10.0 45 06/26/17 04:00 98.1 65 16 124/79 97 Venturi Mask 10.0 45 98.1 06/26/17 00:00 97.7 77 18 116/66 94 Venturi Mask 10.0 45 97.7 06/25/17 23:18 92 Intake and Output 06/25/17 06/26/17 18:59 06:59 Intake Total 1230 ml 180 ml Balance 1230 ml 180 ml Intake Oral 680 ml 180 ml IV Total 550 ml Objective General Appearance: WD/WN HEENT: normocephalic, atraumatic, anicteric Respiratory/Chest: loud rhonchi Cardiovascular: normal peripheral pulses, normal rate, regular rhythm Abdomen: normal bowel sounds, soft, non tender, no organomegaly Genitourinary: normal external genitalia Extremities: no cyanosis Skin: no rash, no lesions Neurologic/Psychiatric: clinical auditor 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, no motor/sensory deficits Lymphatic: no neck adenopathy, no groin adenopathy Laboratory Tests 06/26/17 05:15: White Blood Count 6.0, Red Blood Count 2.50L, Hemoglobin 7.6L, Hematocrit 24.0L , Mean Corpuscular Volume 96, Mean Corpuscular Hemoglobin 30.4, Mean Corpuscular Hemoglobin Concent 31.7L, Red Cell Distribution Width 17.7H, Platelet Count 112L, Mean Platelet Volume 6.1L, Neutrophils (%) (Auto) , Lymphocytes (%) (Auto) , Monocytes (%) (Auto) , Eosinophils (%) (Auto) , Basophils (%) (Auto) , Differential Total Cells Counted 100, Neutrophils % ( Manual) 55, Lymphocytes % (Manual) 24, Monocytes % (Manual) 19H, Eosinophils % ( Manual) 1, Basophils % (Manual) 1, Band Neutrophils 0, Platelet Estimate DecreasedL, Platelet Morphology Normal, Anisocytosis 1+, Erythrocyte Sedimentation Rate 84H, Sodium Level 138, Potassium Level 4.0, Chloride Level 98 , Carbon Dioxide Level 35H, Anion Gap 5, Blood Urea Nitrogen 39H, Creatinine 9.6H, Estimat Glomerular Filtration Rate 6.8, Glucose Level 81, Calcium Level 8.1L, Phosphorus Level 4.7, Magnesium Level 2.1, Total Bilirubin 0.7, Aspartate Amino Transf (AST/SGOT) 23, Alanine Aminotransferase (ALT/SGPT) 23, Alkaline Phosphatase 149H, C-Reactive Protein, Quantitative 4.2H, Total Protein 6.7, Albumin 2.3L, Globulin 4.4, Albumin/Globulin Ratio 0.5L 06/26/17 16:37: Aspergillus galactomannan Antigen [Pending] Current Medications Medications (Trade) Dose Ordered Sig/Jose Route PRN Reason Start Time Stop Time Status Last Admin Dose Admin Acetaminophen (Tylenol) 650 mg Q4H PRN RECTAL Mild Pain (Pain Scale 1-3) 06/16/17 19:00 07/09/17 18:59 Alprazolam (Xanax) 2 mg DAILYPRN PRN ORAL For Anxiety 06/24/17 17:00 07/01/17 16:59 06/26/17 10:31 Amikacin Sulfate 950 mg/Sodium Chloride 113.8 ml @ 227.6 mls/ hr FRI-FRI-FRI IV 06/18/17 21:00 06/30/17 20:59 06/25/17 21:17 Carisoprodol (Soma) 350 mg Q6H PRN ORAL MUSCLE SPASMS 06/16/17 19:00 07/14/17 18:59 06/20/17 23:55 Carvedilol (Coreg) 25 mg EVERY 12 HOURS ORAL 06/16/17 21:00 07/04/17 11:29 06/26/17 20:12 Ceftriaxone Sodium 2 gm/ Dextrose 55 ml @ 110 mls/hr Q24H IVPB 06/21/17 20:00 06/28/17 19:59 06/26/17 20:11 Chlorhexidine Gluconate (Mireille-Hex 2%) 1 applic DAILY@2000 TOPIC 06/16/17 20:00 07/05/17 19:59 06/26/17 20:11 Clonidine HCl (Catapres Tab) 0.1 mg Q4H PRN ORAL bp over 160 syst 06/16/17 19:00 07/03/17 18:59 Dextrose 1,000 ml @ 50 mls/hr Q20H IV 06/16/17 19:00 07/14/17 18:59 06/26/17 18:29 Dextrose (Dextrose 50%) STAT PRN IV Hypoglycemia 06/16/17 19:00 07/14/17 18:59 Docusate Sodium (Colace) 100 mg THREE TIMES A DAY ORAL 06/17/17 20:00 07/03/17 19:59 06/26/17 17:00 Ethambutol HCl (Myambutol) 1,000 mg 3XW ORAL 06/18/17 09:00 07/18/17 23:59 06/25/17 08:09 Levofloxacin (Levaquin) 750 mg EVERY OTHER DAY@2000 ORAL 06/17/17 20:00 06/30/17 19:59 06/25/17 21:07 Lisinopril (Prinivil) 20 mg BID ORAL 06/17/17 09:00 07/04/17 08:59 06/26/17 17:01 Metronidazole (Flagyl) 500 mg Q8HR ORAL 06/17/17 22:00 06/30/17 21:59 06/26/17 20:12 Micafungin Sodium 100 mg/Sodium Chloride 110 ml @ 110 mls/hr Q24H IVPB 06/25/17 20:00 07/02/17 23:59 06/26/17 21:09 Morphine Sulfate (Morphine Sulfate) 2 mg Q4H PRN IVP For Severe Pain 06/24/17 16:30 07/01/17 16:29 06/26/17 21:29 Nitroglycerin (Ntg) 0.4 mg Q5M PRN SL Prn Chest Pain 06/16/17 18:15 07/04/17 09:14 Nitroglycerin (Ntg) 1 patch Q24H TDERMAL 06/17/17 11:30 07/04/17 11:29 06/26/17 11:38 Ondansetron HCl (Zofran) 4 mg Q6H PRN IVP Nausea & Vomiting 06/16/17 18:30 07/14/17 18:29 06/24/17 21:45 Pantoprazole (Protonix) 40 mg ACBREAKFAST ORAL 06/17/17 06:30 07/15/17 06:29 06/26/17 06:54 Polyethylene Glycol (Miralax) 17 gm DAILYPRN PRN ORAL Constipation 06/16/17 18:30 07/14/17 18:29 Promethazine HCl/ Codeine (Phenergan with Codeine) 5 ml Q4H PRN ORAL For Cough 06/16/17 18:30 07/05/17 18:29 Rifampin (Rifadin) 600 mg DAILY ORAL 06/25/17 17:00 07/25/17 16:59 06/25/17 17:42 Sevelamer Carbonate (Renvela) 2,400 mg THREE TIMES A DAY ORAL 06/16/17 18:45 07/16/17 18:44 06/26/17 17:00 Tobramycin/ Dexamethasone (Tobradex Opth Oint) 1 applic FOUR TIMES A DAY BOTH EYES 06/22/17 18:00 06/28/17 23:59 06/26/17 20:11 Christine Morgan MD Jun 26, 2017 22:21
[2017-06-27] VITALS (9 sets, daily range): BP systolic 102–149; BP diastolic 61–93
[2017-06-27] MEDS: Morphine Sulfate 2mg/ml Inj IVP PRN ×5 (02:14→17:11)
[2017-06-27] MEDS: metroNIDAZOLE 500mg tab ORAL SCH ×3 (05:01→20:46)
[2017-06-27 07:41] LABS: HEMATOCRIT 23.6 % (42.0-52.0); HEMOGLOBIN 7.5 G/DL (14.2-18.0); MEAN CORPUSCULAR VOLUME 96 FL (80-99); PLATELET COUNT 104 K/UL (150-450); RED BLOOD COUNT 2.47 M/UL (4.70-6.10); RED CELL DISTRIBUTION WIDTH 17.5 % (11.6-14.8); WHITE BLOOD COUNT 6.9 K/UL (4.8-10.8)
[2017-06-27 08:02] LABS: ANION GAP 9 mmol/L (5-15); BLOOD UREA NITROGEN 46 mg/dL (7-18); CALCIUM 8.5 MG/DL (8.5-10.1); CARBON DIOXIDE 32 MMOL/L (21-32); CHLORIDE 95 MMOL/L (98-107); CREATININE 11.2 MG/DL (0.55-1.30); POTASSIUM 3.8 MMOL/L (3.5-5.1); SODIUM 136 MMOL/L (136-145)
[2017-06-27] MEDS: Tobradex Opth Oint 3.5gm BOTH EYES SCH ×4 (09:18→20:46)
[2017-06-27] MEDS: Lisinopril 20mg tab ORAL SCH ×3 (09:18→17:12)
[2017-06-27] MEDS: Carvedilol 25mg Tab ORAL SCH ×2 (09:19→20:46)
[2017-06-27] MEDS: Docusate 100mg cap ORAL SCH ×3 (09:19→17:09)
[2017-06-27] MEDS: Nitroglycerin Patch 0.4mg TDERMAL SCH (11:06)
[2017-06-27] MEDS: ALPRAZolam 0.5mg tab ORAL PRN (12:50)
[2017-06-27] MEDS ORDERED: Albuterol/Ipratropium 3ml neb HHN PRN (13:15)
--- NOTE | 2017-06-27 13:26 | Pulmonology Progress Note ---
Assessment/Plan Assessment/Plan ASSESSMENT R upper lobe cavitary mass Necrotizing PNA with cavitating lesion RUL r/o TB Acute hypoxemic RF requiring BiPAP -resolved Pleuritic chest pain likely due to necrotizing PNA . Elevated troponin Systolic CHF ( recent negative reversible perfusion defect.) cardiomyopathy pulmonary edema Asthma. End-stage renal disease, on hemodialysis. Hypertensive urgency . Anemia of chronic disease. History of intracardiac defibrillator placement. Prior history of cerebrovascular accident. ESRD on HD thrombocytopenia transaminitis hepatitis C liver cirrhosis cholelithiasis PLAN OF CARE MS resp isolation CT chest 06/26 -Further reduction in size of previously demonstrated thick walled right upper lobe cavitary mass. Currently measures 6 cm AP by 5.2 cm transverse by 3.9 cm craniocaudad, previously approximately 7.8 x 4.9 x 5.2 cm. This was previously thought to most likely represent a cavitary inflammatory mass, and the interim reduction in size certainly supports that. Much less likely a cavitary neoplasm CT chest 06/15- Slightly smaller but mostly unchanged cavitary lesion in the right lung, previously thought to represent a cavitating inflammatory process. Lung abscess is certainly a possibility initial CT chest with evidence of necrotizing PNA with cavitary lesion - 7.8 x 5.3 x 6.6 cm dense opacity in the posterior inferior right upper lobe with a central cavitation. T-SPOT-Neg ; sputum AFB x 3- Neg MTB by PCR x2 -neg cryptococcus Ag, Histo Ab , Blasto ab-all neg ; Cocci, Asp ag pending sputum cx + Providencia/Pseudomonas Ethambutol , Levaquin and Rifaximin, monitor LFT-down to normal, Flagyl added by ID for anaerobic coverage fup with fungal serology and AFB culture Micafungin to cover for possible Aspergilloses O2 titrate, pulm toilet BiPAP at HS and prn HIV negative blood cx negative, influenza screen negative a/tussive prn cardio follows BP management with [facility] and [facility] medical management for SHF nephro follows HD as per nephro dc IVF monitor renal parameters, lytes, avoid nephrotoxic heme follows transfuse prn with goal to keep Hgb above 7 anemia w/up c/w anemia of chronic disease and multifactorial as per GI stool OB+ x1 monitor PLT count- better off Heparin SCD Venous Duplex BLE- negative GI follows hep panel + hep C, no viral load , thus no active infection cirrhosis likely 2 to hep C abd US + cholelithiasis, HSM, surgeon consulted CT A/P with hepatic cirrhosis, HSM, anasarca and cholelithiasis, no evidence of acute cholecystis, no surgical intervention necessary per GI defer EGD/colon for now cont resp isolation disposition after [facility] Department clearance case discussed and evaluated by supervising physician Subjective Allergies: Coded Allergies: IODINE AND IODIDE CONTAINING PRODUC (Verified Allergy, Mild, itching and pruritis, 06/25/17) Uncoded Allergies: CONTRAST/DYE (Allergy, Intermediate, PRURITIS AND ITCHING, 06/25/17) Subjective on resp isolation for TB reports SOB on O2 via NC HD pending for today afebrile, no leukocytosis on gentle IVF? Objective Last 24 Hour Vital Signs Date Time Temp Pulse Resp B/P (MAP) Pulse Ox O2 Delivery O2 Flow Rate FiO2 06/27/17 11:55 97.7 78 20 138/81 95 97.7 06/27/17 11:06 149/91 06/27/17 09:19 72 149/91 06/27/17 09:18 149/91 06/27/17 08:09 72 18 Venturi Mask 10.0 45 06/27/17 08:09 94 Venturi Mask 10.0 45 06/27/17 08:09 Venturi Mask 10.0 45 06/27/17 07:56 98.2 77 20 149/91 95 98.2 06/27/17 06:55 98.2 06/27/17 06:25 98.2 06/27/17 05:02 98.2 06/27/17 04:03 98.2 06/27/17 04:00 97.7 68 18 142/89 99 97.7 06/27/17 02:14 98.2 06/27/17 01:15 98.2 86 20 113/68 98 Nasal Cannula 98.2 06/27/17 00:00 98 Bi-pap 06/27/17 00:00 98.2 86 20 113/68 98 Bi-pap 98.2 06/26/17 22:08 82 18 93 06/26/17 21:29 97.2 06/26/17 20:12 68 117/68 06/26/17 20:09 97.2 68 20 117/68 99 Room Air 97.2 06/26/17 20:09 99 Nasal Cannula 4.0 06/26/17 19:28 92 Venturi Mask 10.0 45 06/26/17 19:28 63 18 Venturi Mask 10.0 45 06/26/17 19:28 Venturi Mask 10.0 45 06/26/17 17:01 134/77 06/26/17 16:45 Room Air 06/26/17 16:45 98.5 58 20 100/56 Room Air 98.5 06/26/17 16:00 98.1 71 18 134/77 94 98.1 Intake and Output 06/26/17 06/27/17 19:00 07:00 Intake Total 145 ml 665 ml Output Total 3000 ml Balance -2855 ml 665 ml Intake Oral 120 ml IV Total 25 ml 665 ml Hemodialysis UF 3000 ml # Voids 1 2 # Bowel Movements 2 1 Objective General Appearance: no acute distress, obese awake, alert, responsive AA male , HEENT: normocephalic, atraumatic, anicteric Respiratory/Chest: decreased breath sounds, ICD Lt chest Cardiovascular: normal rate, LUE AV shunt + bruit/thrill, L neck IJ CL intact Abdomen: normal bowel sounds, soft, non tender, obese Extremities: +1 edema BLE Neurologic/Psychiatric: alert, responsive Musculoskeletal: normal muscle bulk Laboratory Tests 06/26/17 16:37: Aspergillus galactomannan Antigen [Pending] 06/27/17 05:00: Aspergillus flavus Antibody [Pending], Aspergillus fumigatus Antibody [Pending] , Aspergillus niger Antibody [Pending] 06/27/17 05:09: White Blood Count 6.9, Red Blood Count 2.47L, Hemoglobin 7.5L, Hematocrit 23.6L , Mean Corpuscular Volume 96, Mean Corpuscular Hemoglobin 30.4, Mean Corpuscular Hemoglobin Concent 31.7L, Red Cell Distribution Width 17.5H, Platelet Count 104L, Mean Platelet Volume 5.8L, Neutrophils (%) (Auto) , Lymphocytes (%) (Auto) , Monocytes (%) (Auto) , Eosinophils (%) (Auto) , Basophils (%) (Auto) , Differential Total Cells Counted 100, Neutrophils % ( Manual) 57, Lymphocytes % (Manual) 20, Monocytes % (Manual) 14H, Eosinophils % ( Manual) 8H, Basophils % (Manual) 1, Band Neutrophils 0, Platelet Estimate DecreasedL, Platelet Morphology Normal, Anisocytosis 1+, Acanthocytes 1+, Sodium Level 136, Potassium Level 3.8, Chloride Level 95L, Carbon Dioxide Level 32, Anion Gap 9, Blood Urea Nitrogen 46H, Creatinine 11.2H, Estimat Glomerular Filtration Rate 5.7, Glucose Level 80, Calcium Level 8.5 Current Medications Medications (Trade) Dose Ordered Sig/Jose Route PRN Reason Start Time Stop Time Status Last Admin Dose Admin Acetaminophen (Tylenol) 650 mg Q4H PRN RECTAL Mild Pain (Pain Scale 1-3) 06/16/17 19:00 07/09/17 18:59 Alprazolam (Xanax) 2 mg DAILYPRN PRN ORAL For Anxiety 06/24/17 17:00 07/01/17 16:59 06/27/17 12:50 Amikacin Sulfate 950 mg/Sodium Chloride 113.8 ml @ 227.6 mls/ hr FRI-FRI-FRI IV 06/18/17 21:00 06/30/17 20:59 06/25/17 21:17 Carisoprodol (Soma) 350 mg Q6H PRN ORAL MUSCLE SPASMS 06/16/17 19:00 07/14/17 18:59 06/27/17 04:03 Carvedilol (Coreg) 25 mg EVERY 12 HOURS ORAL 06/16/17 21:00 07/04/17 11:29 06/27/17 09:19 Ceftriaxone Sodium 2 gm/ Dextrose 55 ml @ 110 mls/hr Q24H IVPB 06/21/17 20:00 06/28/17 19:59 06/26/17 20:11 Chlorhexidine Gluconate (Mireille-Hex 2%) 1 applic DAILY@2000 TOPIC 06/16/17 20:00 07/05/17 19:59 06/26/17 20:11 Clonidine HCl (Catapres Tab) 0.1 mg Q4H PRN ORAL bp over 160 syst 06/16/17 19:00 07/03/17 18:59 Dextrose 1,000 ml @ 50 mls/hr Q20H IV 06/16/17 19:00 07/14/17 18:59 06/26/17 18:29 Dextrose (Dextrose 50%) STAT PRN IV Hypoglycemia 06/16/17 19:00 07/14/17 18:59 Docusate Sodium (Colace) 100 mg THREE TIMES A DAY ORAL 06/17/17 20:00 07/03/17 19:59 06/27/17 12:50 Ethambutol HCl (Myambutol) 1,000 mg 3XW ORAL 06/18/17 09:00 07/18/17 23:59 06/27/17 09:19 Levofloxacin (Levaquin) 750 mg EVERY OTHER DAY@2000 ORAL 06/17/17 20:00 06/30/17 19:59 06/25/17 21:07 Lisinopril (Prinivil) 20 mg BID ORAL 06/17/17 09:00 07/04/17 08:59 06/27/17 09:18 Metronidazole (Flagyl) 500 mg Q8HR ORAL 06/17/17 22:00 06/30/17 21:59 06/27/17 12:51 Micafungin Sodium 100 mg/Sodium Chloride 110 ml @ 110 mls/hr Q24H IVPB 06/25/17 20:00 07/02/17 23:59 06/26/17 21:09 Morphine Sulfate (Morphine Sulfate) 2 mg Q4H PRN IVP For Severe Pain 06/24/17 16:30 07/01/17 16:29 06/27/17 11:05 Nitroglycerin (Ntg) 0.4 mg Q5M PRN SL Prn Chest Pain 06/16/17 18:15 07/04/17 09:14 Nitroglycerin (Ntg) 1 patch Q24H TDERMAL 06/17/17 11:30 07/04/17 11:29 06/27/17 11:06 Ondansetron HCl (Zofran) 4 mg Q6H PRN IVP Nausea & Vomiting 06/16/17 18:30 07/14/17 18:29 06/27/17 09:19 Pantoprazole (Protonix) 40 mg ACBREAKFAST ORAL 06/17/17 06:30 07/15/17 06:29 06/27/17 05:01 Polyethylene Glycol (Miralax) 17 gm DAILYPRN PRN ORAL Constipation 06/16/17 18:30 07/14/17 18:29 Promethazine HCl/ Codeine (Phenergan with Codeine) 5 ml Q4H PRN ORAL For Cough 06/16/17 18:30 07/05/17 18:29 Rifampin (Rifadin) 600 mg DAILY ORAL 06/25/17 17:00 07/25/17 16:59 06/27/17 09:18 Sevelamer Carbonate (Renvela) 2,400 mg THREE TIMES A DAY ORAL 06/16/17 18:45 07/16/17 18:44 06/27/17 12:50 Tobramycin/ Dexamethasone (Tobradex Opth Oint) 1 applic FOUR TIMES A DAY BOTH EYES 06/22/17 18:00 06/28/17 23:59 06/27/17 12:51 Rohan (Tabby)Mariela NP Jun 27, 2017 13:26
--- NOTE | 2017-06-27 15:02 | Nephrology Progress Note ---
Assessment/Plan Problem List: (1) ESRD (end stage renal disease) on dialysis (2) Shortness of breath (3) Anemia Assessment worsenning Anemia ESRD , missed HD , admitted with high K and pulmonary edema Acute respiratory distress due to volume overload elevated troponin r/o ACS h/o COPD ? exacerbation HTN urgency Cardiomyopathy L AICD anemia of chronic kidney disease Hx of CVA Plan Plan: Low H&H - consider transfusion HD next 06/27 Transfused Phos binders BP meds adjustment Optimize cardiac status per orders Subjective ROS Limited/Unobtainable: No Objective Objective Last 24 Hour Vital Signs Date Time Temp Pulse Resp B/P (MAP) Pulse Ox O2 Delivery O2 Flow Rate FiO2 06/27/17 11:55 97.7 78 20 138/81 95 97.7 06/27/17 11:06 149/91 06/27/17 09:19 72 149/91 06/27/17 09:18 149/91 06/27/17 08:09 72 18 Venturi Mask 10.0 45 06/27/17 08:09 94 Venturi Mask 10.0 45 06/27/17 08:09 Venturi Mask 10.0 45 06/27/17 07:56 98.2 77 20 149/91 95 98.2 06/27/17 06:55 98.2 06/27/17 06:25 98.2 06/27/17 05:02 98.2 06/27/17 04:03 98.2 06/27/17 04:00 97.7 68 18 142/89 99 97.7 06/27/17 02:14 98.2 06/27/17 01:15 98.2 86 20 113/68 98 Nasal Cannula 98.2 06/27/17 00:00 98 Bi-pap 06/27/17 00:00 98.2 86 20 113/68 98 Bi-pap 98.2 06/26/17 22:08 82 18 93 06/26/17 21:29 97.2 06/26/17 20:12 68 117/68 06/26/17 20:09 97.2 68 20 117/68 99 Room Air 97.2 06/26/17 20:09 99 Nasal Cannula 4.0 06/26/17 19:28 92 Venturi Mask 10.0 45 06/26/17 19:28 63 18 Venturi Mask 10.0 45 06/26/17 19:28 Venturi Mask 10.0 45 06/26/17 17:01 134/77 06/26/17 16:45 Room Air 06/26/17 16:45 98.5 58 20 100/56 Room Air 98.5 06/26/17 16:00 98.1 71 18 134/77 94 98.1 Intake and Output 06/26/17 06/27/17 19:00 07:00 Intake Total 145 ml 665 ml Output Total 3000 ml Balance -2855 ml 665 ml Intake Oral 120 ml IV Total 25 ml 665 ml Hemodialysis UF 3000 ml # Voids 1 2 # Bowel Movements 2 1 Laboratory Tests 06/26/17 16:37: Aspergillus galactomannan Antigen [Pending] 06/27/17 05:00: Aspergillus flavus Antibody [Pending], Aspergillus fumigatus Antibody [Pending] , Aspergillus niger Antibody [Pending] 06/27/17 05:09: White Blood Count 6.9, Red Blood Count 2.47L, Hemoglobin 7.5L, Hematocrit 23.6L , Mean Corpuscular Volume 96, Mean Corpuscular Hemoglobin 30.4, Mean Corpuscular Hemoglobin Concent 31.7L, Red Cell Distribution Width 17.5H, Platelet Count 104L, Mean Platelet Volume 5.8L, Neutrophils (%) (Auto) , Lymphocytes (%) (Auto) , Monocytes (%) (Auto) , Eosinophils (%) (Auto) , Basophils (%) (Auto) , Differential Total Cells Counted 100, Neutrophils % ( Manual) 57, Lymphocytes % (Manual) 20, Monocytes % (Manual) 14H, Eosinophils % ( Manual) 8H, Basophils % (Manual) 1, Band Neutrophils 0, Platelet Estimate DecreasedL, Platelet Morphology Normal, Anisocytosis 1+, Acanthocytes 1+, Sodium Level 136, Potassium Level 3.8, Chloride Level 95L, Carbon Dioxide Level 32, Anion Gap 9, Blood Urea Nitrogen 46H, Creatinine 11.2H, Estimat Glomerular Filtration Rate 5.7, Glucose Level 80, Calcium Level 8.5 Height (Feet): 5 Height (Inches): 7.00 Weight (Pounds): 233 General Appearance: no apparent distress Objective no change LIAM MONTELONGO 23, 2018 15:02
--- NOTE | 2017-06-27 16:08 | Infectious Diseases Prog Note ---
Assessment/Plan Assessment/Plan A: Cavitary PNA. SCx: Neg ( m/l necrotizing Pneum, r/o Fungal, r/o TB ) ; improving -CT chest 06/25: Since the prior study of 06/15/2017, and. From further reduction in size of previously demonstrated thick walled right upper lobe cavitary mass. This was previously thought to most likely represent a cavitary inflammatory mass, and the interim reduction in size certainly supports that. Much less likely a cavitary neoplasm, but follow-up to resolution is recommended. Markedly improved parenchymal disease bilaterally, since the previous study. Nonetheless , extensive atelectasis and groundglass consolidation persists. Persistent small right pleural effusion, smaller than on the prior study. Resolved left pleural effusion 6 mm nodular opacity in the right upper lobe, not evident previously but likely obscured by surrounding consolidated lung parenchyma. This should be followed up in 6 months to one year depending on results of interim follow-up exams -CXR 06/21: Persistent but slightly decreased size of known right lung cavitary lesion. Persistent extensive interstitial and bilateral airspace opacities. -sp cx 06/05, 06/06 normal resp jordin; repeat sp cx 06/18 PsA (singh S) + Providencia stuarti (S Ceftriaxone, R Cipro) (likely superinfection/HCAP) Rsp status improved but on 06/[address] his condition worsen T-SPOT :Neg AFB x 3 : Neg MTB PCR x2 : neg cryptococcus Ag, Histoplams mycelial Ab , Blastomyces ab : neg ; histoplasma yeast ab (not able to be done due to anticomplemenatry activity) -Cocci, Asp ag p -Fungitell + 144 06/21 Xray : improvement of cavity CT chest 06/15: Slightly smaller (6 cm diameter ) but mostly unchanged cavitary lesion in the right lung, previously thought to represent a cavitating inflammatory process. Lung abscess is certainly a possibility. Fairly extensive bilateral pulmonary parenchymal consolidation, slightly increased from previous exam of 06/05/2017. Likely a combination of pulmonary edema and pneumonia. Small right and trace left pleural effusion, new/increased from the previous study. CT 06/05: 7.8 x 5.3 x 6.6 cm dense opacity in the posterior inferior right upper lobe with a central cavitation. Chest x-ray : right mid lung infiltrate, possible cavitation Rule out tuberculosis, fungal infection, or necrotizing pneumonia. CRP 14 Influenza negative Low-grade fever, SP Status post leukocytosis. Transaminitis ,? 2/2 Hep C cirrhosis- no active Hep C as VL not detected -CT abd/p: Evidence of hepatic cirrhosis. Hepatosplenomegaly. evidence of generalized anasarca, with pleural fluid and generalized subcutaneous edema. Cholelithiasis, also previously reported. Possible diverticulosis. No evidence of diverticulitis US Abd : Cholelithiasis. There is gallbladder wall thickening, likely related to hemodynamic abnormalities Splenomegaly. Evidence of hepatic cirrhosis HIV : NEG Hep Panel B neg , C Ab : +ve , VL not detected leukopenia and TCP 2/2 splenomegaly Seizure disorder History of CVA History of pacemaker placement Hyperlipidemia Hypertension COPD/asthma End-stage renal disease, on hemodialysis Diabetes Anxiety Anemia Echo, ejection fraction 45% to 50%. PLAN: Continue Rocephin d # 7/7-10 for possible superimposed Providencia PNA Continue Micafungin abx d#13 (switched from voriconazole given drug-drug interaction with Rifampin) for possible Aspergillosis pending cultures and fungal serologies -Continue Flagyl (in addition with Levaquin will provide anaerobic coverage for possible aspiration/cavitary and now PsA PNA as no isolation of resistant organisms); abx d# 25/28-42 Continue empiric Ethambutol , amikacin d# 14 and Levaquin d# 15 empiric for TB pending cultures -Will challenge with Rifampin 600mg qd #3; if LFTs remains stable in the next few days, will d/c Amikacin -monitor LFTs 06/25 SP PO Voriconazole #3 3/16 SP Liposomal Ampho #8 3/13 SP IV Vancomycin #14, Meropenem #5 3/9 SP Zosyn d# 10 3/4 SP Zithromax D# 6 f/u sputum culture (, fungal, and AFB x3). f/u Coccidioidal ,Galactomannan and Fungitell, Histoplasma ag urine Airborne isolation for now Disposition per Dept of Public Health Subjective Allergies: Coded Allergies: IODINE AND IODIDE CONTAINING PRODUC (Verified Allergy, Mild, itching and pruritis, 06/25/17) Uncoded Allergies: CONTRAST/DYE (Allergy, Intermediate, PRURITIS AND ITCHING, 06/25/17) Subjective afebrile no leukocytosis no CMP today Objective Vital Signs Last 24 Hour Vital Signs Date Time Temp Pulse Resp B/P (MAP) Pulse Ox O2 Delivery O2 Flow Rate FiO2 06/27/17 11:55 97.7 78 20 138/81 95 97.7 06/27/17 11:06 149/91 06/27/17 09:19 72 149/91 06/27/17 09:18 149/91 06/27/17 08:09 72 18 Venturi Mask 10.0 45 06/27/17 08:09 94 Venturi Mask 10.0 45 06/27/17 08:09 Venturi Mask 10.0 45 06/27/17 07:56 98.2 77 20 149/91 95 98.2 06/27/17 06:55 98.2 06/27/17 06:25 98.2 06/27/17 05:02 98.2 06/27/17 04:03 98.2 06/27/17 04:00 97.7 68 18 142/89 99 97.7 06/27/17 02:14 98.2 06/27/17 01:15 98.2 86 20 113/68 98 Nasal Cannula 98.2 06/27/17 00:00 98 Bi-pap 06/27/17 00:00 98.2 86 20 113/68 98 Bi-pap 98.2 06/26/17 22:08 82 18 93 06/26/17 21:29 97.2 06/26/17 20:12 68 117/68 06/26/17 20:09 97.2 68 20 117/68 99 Room Air 97.2 06/26/17 20:09 99 Nasal Cannula 4.0 06/26/17 19:28 92 Venturi Mask 10.0 45 06/26/17 19:28 63 18 Venturi Mask 10.0 45 06/26/17 19:28 Venturi Mask 10.0 45 06/26/17 17:01 134/77 06/26/17 16:45 Room Air 06/26/17 16:45 98.5 58 20 100/56 Room Air 98.5 Height (Feet): 5 Height (Inches): 7.00 Weight (Pounds): 233 Objective General Appearance: WD/WN, alert, moderate distress EENT: PERRL/EOMI, normal ENT inspection Neck: non-tender, normal alignment, supple, normal inspection Cardiovascular: normal peripheral pulses, normal rate, regular rhythm, no gallop/murmur, no JVD Respiratory/Chest: Non rebreather; respiratory distress, crackles/rales, rhonchi - bilaterally, expiratory wheezing Abdomen: normal bowel sounds, non tender, soft, no organomegaly, no mass Extremities: normal range of motion Neurologic: meeting specialist 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, no motor/sensory deficits Skin: normal pigmentation, warm/dry Laboratory Tests Test 06/26/17 16:37 06/27/17 05:00 06/27/17 05:09 Aspergillus galactomannan Antigen Pending Aspergillus flavus Antibody Pending Aspergillus fumigatus Antibody Pending Aspergillus niger Antibody Pending White Blood Count 6.9 K/UL (4.8-10.8) Red Blood Count 2.47 M/UL (4.70-6.10) L Hemoglobin 7.5 G/DL (14.2-18.0) L Hematocrit 23.6 % (42.0-52.0) L Mean Corpuscular Volume 96 FL (80-99) Mean Corpuscular Hemoglobin 30.4 PG (27.0-31.0) Mean Corpuscular Hemoglobin Concent 31.7 G/DL (32.0-36.0) L Red Cell Distribution Width 17.5 % (11.6-14.8) H Platelet Count 104 K/UL (150-450) L Mean Platelet Volume 5.8 FL (6.5-10.1) L Neutrophils (%) (Auto) % (45.0-75.0) Lymphocytes (%) (Auto) % (20.0-45.0) Monocytes (%) (Auto) % (1.0-10.0) Eosinophils (%) (Auto) % (0.0-3.0) Basophils (%) (Auto) % (0.0-2.0) Differential Total Cells Counted 100 Neutrophils % (Manual) 57 % (45-75) Lymphocytes % (Manual) 20 % (20-45) Monocytes % (Manual) 14 % (1-10) H Eosinophils % (Manual) 8 % (0-3) H Basophils % (Manual) 1 % (0-2) Band Neutrophils 0 % (0-8) Platelet Estimate Decreased L Platelet Morphology Normal Anisocytosis 1+ Acanthocytes 1+ Sodium Level 136 MMOL/L (136-145) Potassium Level 3.8 MMOL/L (3.5-5.1) Chloride Level 95 MMOL/L (98-107) L Carbon Dioxide Level 32 MMOL/L (21-32) Anion Gap 9 mmol/L (5-15) Blood Urea Nitrogen 46 mg/dL (7-18) H Creatinine 11.2 MG/DL (0.55-1.30) H Estimat Glomerular Filtration Rate 5.7 mL/min (>60) Glucose Level 80 MG/DL (74-106) Calcium Level 8.5 MG/DL (8.5-10.1) Current Medications Medications (Trade) Dose Ordered Sig/Jose Route PRN Reason Start Time Stop Time Status Last Admin Dose Admin Acetaminophen (Tylenol) 650 mg Q4H PRN RECTAL Mild Pain (Pain Scale 1-3) 06/16/17 19:00 07/09/17 18:59 Albuterol/ Ipratropium (Albuterol/ Ipratropium) 3 ml Q4HRT PRN HHN sob 06/27/17 13:15 07/02/17 13:14 Alprazolam (Xanax) 2 mg DAILYPRN PRN ORAL For Anxiety 06/24/17 17:00 07/01/17 16:59 06/27/17 12:50 Amikacin Sulfate 950 mg/Sodium Chloride 113.8 ml @ 227.6 mls/ hr FRI-FRI-FRI IV 06/18/17 21:00 06/30/17 20:59 06/25/17 21:17 Carisoprodol (Soma) 350 mg Q6H PRN ORAL MUSCLE SPASMS 06/16/17 19:00 07/14/17 18:59 06/27/17 04:03 Carvedilol (Coreg) 25 mg EVERY 12 HOURS ORAL 06/16/17 21:00 07/04/17 11:29 06/27/17 09:19 Ceftriaxone Sodium 2 gm/ Dextrose 55 ml @ 110 mls/hr Q24H IVPB 06/21/17 20:00 06/28/17 19:59 06/26/17 20:11 Chlorhexidine Gluconate (Mireille-Hex 2%) 1 applic DAILY@2000 TOPIC 06/16/17 20:00 07/05/17 19:59 06/26/17 20:11 Clonidine HCl (Catapres Tab) 0.1 mg Q4H PRN ORAL bp over 160 syst 06/16/17 19:00 07/03/17 18:59 Dextrose (Dextrose 50%) STAT PRN IV Hypoglycemia 06/16/17 19:00 07/14/17 18:59 Docusate Sodium (Colace) 100 mg THREE TIMES A DAY ORAL 06/17/17 20:00 07/03/17 19:59 06/27/17 12:50 Ethambutol HCl (Myambutol) 1,000 mg 3XW ORAL 06/18/17 09:00 07/18/17 23:59 06/27/17 09:19 Levofloxacin (Levaquin) 750 mg EVERY OTHER DAY@1999 ORAL 06/17/17 20:00 06/30/17 19:59 06/25/17 21:07 Lisinopril (Prinivil) 20 mg BID ORAL 06/17/17 09:00 07/04/17 08:59 06/27/17 09:18 Metronidazole (Flagyl) 500 mg Q8HR ORAL 06/17/17 22:00 06/30/17 21:59 06/27/17 12:51 Micafungin Sodium 100 mg/Sodium Chloride 110 ml @ 110 mls/hr Q24H IVPB 06/25/17 20:00 07/02/17 23:59 06/26/17 21:09 Morphine Sulfate (Morphine Sulfate) 2 mg Q4H PRN IVP For Severe Pain 06/24/17 16:30 07/01/17 16:29 06/27/17 11:05 Nitroglycerin (Ntg) 0.4 mg Q5M PRN SL Prn Chest Pain 06/16/17 18:15 07/04/17 09:14 Nitroglycerin (Ntg) 1 patch Q24H TDERMAL 06/17/17 11:30 07/04/17 11:29 06/27/17 11:06 Ondansetron HCl (Zofran) 4 mg Q6H PRN IVP Nausea & Vomiting 06/16/17 18:30 07/14/17 18:29 06/27/17 09:19 Pantoprazole (Protonix) 40 mg ACBREAKFAST ORAL 06/17/17 06:30 07/15/17 06:29 06/27/17 05:01 Polyethylene Glycol (Miralax) 17 gm DAILYPRN PRN ORAL Constipation 06/16/17 18:30 07/14/17 18:29 Promethazine HCl/ Codeine (Phenergan with Codeine) 5 ml Q4H PRN ORAL For Cough 06/16/17 18:30 07/05/17 18:29 Rifampin (Rifadin) 600 mg DAILY ORAL 06/25/17 17:00 07/25/17 16:59 06/27/17 09:18 Sevelamer Carbonate (Renvela) 2,400 mg THREE TIMES A DAY ORAL 06/16/17 18:45 07/16/17 18:44 06/27/17 12:50 Tobramycin/ Dexamethasone (Tobradex Opth Oint) 1 applic FOUR TIMES A DAY BOTH EYES 06/22/17 18:00 06/28/17 23:59 06/27/17 12:51 Aleja Crocker M.D. Jun 27, 2017 16:08
--- NOTE | 2017-06-27 17:32 | Internal Med Progress Note ---
Subjective Date of Service: Jun 27, 2017 Physician Name Pires,Zoey Attending Physician Chaitanya Weinstein MD Current Medications Medications (Trade) Dose Ordered Sig/Jose Route PRN Reason Start Time Stop Time Status Last Admin Dose Admin Acetaminophen (Tylenol) 650 mg Q4H PRN RECTAL Mild Pain (Pain Scale 1-3) 06/16/17 19:00 07/09/17 18:59 Albuterol/ Ipratropium (Albuterol/ Ipratropium) 3 ml Q4HRT PRN HHN sob 06/27/17 13:15 07/02/17 13:14 Alprazolam (Xanax) 2 mg DAILYPRN PRN ORAL For Anxiety 06/24/17 17:00 07/01/17 16:59 06/27/17 12:50 Amikacin Sulfate 950 mg/Sodium Chloride 113.8 ml @ 227.6 mls/ hr FRI-FRI-FRI IV 06/18/17 21:00 06/30/17 20:59 06/25/17 21:17 Carisoprodol (Soma) 350 mg Q6H PRN ORAL MUSCLE SPASMS 06/16/17 19:00 07/14/17 18:59 06/27/17 04:03 Carvedilol (Coreg) 25 mg EVERY 12 HOURS ORAL 06/16/17 21:00 07/04/17 11:29 06/27/17 09:19 Ceftriaxone Sodium 2 gm/ Dextrose 55 ml @ 110 mls/hr Q24H IVPB 06/21/17 20:00 06/28/17 19:59 06/26/17 20:11 Chlorhexidine Gluconate (Mireille-Hex 2%) 1 applic DAILY@2000 TOPIC 06/16/17 20:00 07/05/17 19:59 06/26/17 20:11 Clonidine HCl (Catapres Tab) 0.1 mg Q4H PRN ORAL bp over 160 syst 06/16/17 19:00 07/03/17 18:59 Dextrose (Dextrose 50%) STAT PRN IV Hypoglycemia 06/16/17 19:00 07/14/17 18:59 Docusate Sodium (Colace) 100 mg THREE TIMES A DAY ORAL 06/17/17 20:00 07/03/17 19:59 06/27/17 17:09 Ethambutol HCl (Myambutol) 1,000 mg 3XW ORAL 06/18/17 09:00 07/18/17 23:59 06/27/17 09:19 Levofloxacin (Levaquin) 750 mg EVERY OTHER DAY@2000 ORAL 06/17/17 20:00 06/30/17 19:59 06/25/17 21:07 Lisinopril (Prinivil) 20 mg BID ORAL 06/17/17 09:00 07/04/17 08:59 06/27/17 09:18 Metronidazole (Flagyl) 500 mg Q8HR ORAL 06/17/17 22:00 06/30/17 21:59 06/27/17 12:51 Micafungin Sodium 100 mg/Sodium Chloride 110 ml @ 110 mls/hr Q24H IVPB 06/25/17 20:00 07/02/17 23:59 06/26/17 21:09 Morphine Sulfate (Morphine Sulfate) 2 mg Q4H PRN IVP For Severe Pain 06/24/17 16:30 07/01/17 16:29 06/27/17 17:09 Nitroglycerin (Ntg) 0.4 mg Q5M PRN SL Prn Chest Pain 06/16/17 18:15 07/04/17 09:14 Nitroglycerin (Ntg) 1 patch Q24H TDERMAL 06/17/17 11:30 07/04/17 11:29 06/27/17 11:06 Ondansetron HCl (Zofran) 4 mg Q6H PRN IVP Nausea & Vomiting 06/16/17 18:30 07/14/17 18:29 06/27/17 09:19 Pantoprazole (Protonix) 40 mg ACBREAKFAST ORAL 06/17/17 06:30 07/15/17 06:29 06/27/17 05:01 Polyethylene Glycol (Miralax) 17 gm DAILYPRN PRN ORAL Constipation 06/16/17 18:30 07/14/17 18:29 Promethazine HCl/ Codeine (Phenergan with Codeine) 5 ml Q4H PRN ORAL For Cough 06/16/17 18:30 07/05/17 18:29 Rifampin (Rifadin) 600 mg DAILY ORAL 06/25/17 17:00 07/25/17 16:59 06/27/17 09:18 Sevelamer Carbonate (Renvela) 2,400 mg THREE TIMES A DAY ORAL 06/16/17 18:45 07/16/17 18:44 06/27/17 17:09 Tobramycin/ Dexamethasone (Tobradex Opth Oint) 1 applic FOUR TIMES A DAY BOTH EYES 06/22/17 18:00 06/28/17 23:59 06/27/17 17:09 Allergies: Coded Allergies: IODINE AND IODIDE CONTAINING PRODUC (Verified Allergy, Mild, itching and pruritis, 06/25/17) Uncoded Allergies: CONTRAST/DYE (Allergy, Intermediate, PRURITIS AND ITCHING, 06/25/17) Subjective 57 YO M admitted with chest pain and shortness of breath. Now pneumonia and candelaria heart failure. Back on venturi mask. Cover for Int Misbah-Dr Weinstein. Hemodialysis today 06/25 Objective Last Vital Signs Date Time Temp Pulse Resp B/P (MAP) Pulse Ox O2 Delivery O2 Flow Rate FiO2 06/27/17 17:00 Venturi Mask 5.0 06/27/17 16:45 98.2 83 20 102/61 98.2 06/27/17 16:08 95 06/27/17 08:09 45 Laboratory Tests Test 06/27/17 05:00 06/27/17 05:09 Aspergillus flavus Antibody Pending Aspergillus fumigatus Antibody Pending Aspergillus niger Antibody Pending White Blood Count 6.9 K/UL (4.8-10.8) Red Blood Count 2.47 M/UL (4.70-6.10) L Hemoglobin 7.5 G/DL (14.2-18.0) L Hematocrit 23.6 % (42.0-52.0) L Mean Corpuscular Volume 96 FL (80-99) Mean Corpuscular Hemoglobin 30.4 PG (27.0-31.0) Mean Corpuscular Hemoglobin Concent 31.7 G/DL (32.0-36.0) L Red Cell Distribution Width 17.5 % (11.6-14.8) H Platelet Count 104 K/UL (150-450) L Mean Platelet Volume 5.8 FL (6.5-10.1) L Neutrophils (%) (Auto) % (45.0-75.0) Lymphocytes (%) (Auto) % (20.0-45.0) Monocytes (%) (Auto) % (1.0-10.0) Eosinophils (%) (Auto) % (0.0-3.0) Basophils (%) (Auto) % (0.0-2.0) Differential Total Cells Counted 100 Neutrophils % (Manual) 57 % (45-75) Lymphocytes % (Manual) 20 % (20-45) Monocytes % (Manual) 14 % (1-10) H Eosinophils % (Manual) 8 % (0-3) H Basophils % (Manual) 1 % (0-2) Band Neutrophils 0 % (0-8) Platelet Estimate Decreased L Platelet Morphology Normal Anisocytosis 1+ Acanthocytes 1+ Sodium Level 136 MMOL/L (136-145) Potassium Level 3.8 MMOL/L (3.5-5.1) Chloride Level 95 MMOL/L (98-107) L Carbon Dioxide Level 32 MMOL/L (21-32) Anion Gap 9 mmol/L (5-15) Blood Urea Nitrogen 46 mg/dL (7-18) H Creatinine 11.2 MG/DL (0.55-1.30) H Estimat Glomerular Filtration Rate 5.7 mL/min (>60) Glucose Level 80 MG/DL (74-106) Calcium Level 8.5 MG/DL (8.5-10.1) Intake and Output 06/26/17 06/27/17 19:00 07:00 Intake Total 145 ml 665 ml Output Total 3000 ml Balance -2855 ml 665 ml Intake Oral 120 ml IV Total 25 ml 665 ml Hemodialysis UF 3000 ml # Voids 1 2 # Bowel Movements 2 1 Objective General Appearance: WD/WN, alert, moderate distress EENT: PERRL/EOMI, normal ENT inspection Neck: non-tender, normal alignment, supple, normal inspection Cardiovascular: normal peripheral pulses, normal rate, regular rhythm, no gallop/murmur, no JVD Respiratory/Chest: Nasal canula; respiratory distress, crackles/rales, rhonchi - bilaterally, expiratory wheezing Abdomen: normal bowel sounds, non tender, soft, no organomegaly, no mass Extremities: normal range of motion Neurologic: manager general 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 Currently on nasal canula. See pulmonay note. (2) Pleuritic chest pain (3) Hemoptysis Assessment & Plan: Due to pneumonia (4) Pneumonia Assessment & Plan: Providencia and pseudamonas. RUL and cavitary. Concerning for TB. Await AFB cultures-see ID consult. Continue vanco and ethambutol per ID. Continue rocephin, micafungin, flagyl, amikacin, levaquin, and rifampin (5) Shortness of breath (6) ESRD (end stage renal disease) on dialysis Assessment & Plan: See nephrology note. Hemodialysis 06/27/17 per nephrology (7) Hyperkalemia Assessment & Plan: Due to renal failure. Hemodialysis 06/12/17 per nephrology (8) COPD (chronic obstructive pulmonary disease) (9) HTN (hypertension) Assessment & Plan: Continue coreg and lisinopril. (10) CHF (congestive heart failure) (11) Elevated troponin Assessment & Plan: ?due to renal failure? See cardiology note. (12) Intractable abdominal pain Assessment & Plan: See surgery note. Await CT abdomen (13) Conjunctivitis Assessment & Plan: start tobramycin Status: not improved ZOEY PIRES Jun 27, 2017 17:32
[2017-06-27] MEDS: Dyna-Hex 2% Top Sol 2oz TOPIC SCH (20:45)
[2017-06-27] MEDS: cefTRIAXone 2 GM in D5W 55 ML IVPB SCH (20:47)
[2017-06-27] MEDS: Micafungin 100 MG in NS 110 ML IVPB SCH (22:43)
[2017-06-27] MEDS: Amikacin 950 MG in NS 110 ML IV SCH (22:44)
--- NOTE | 2017-06-27 23:18 | General Progress Note ---
Assessment/Plan Assessment/Plan #. Anemia secondary to chronic disease. --> Hemoglobin levels have been improving but remain on the lower side, no blood transfusion required unless levels drop again --> S/P abd CAT scan revealing evidence of hepatic cirrhosis. --> Hepatosplenomegaly. Ascites. There is also evidence of generalized anasarca , with pleural fluid and generalized subcutaneous edema --> Continue to closely monitor and trend cbc daily. --> Anemia workup completed and reviewed. Iron 42, TIBC 180, Ferritin 593, B12 876. --> Ferritin is >500, hgb goal is >7 --> Anemia w/u has been reviewed --> ++Occult blood. Consider GI Services and Recs. --> Abd pain improved on pain management #. Anemia of kidney disease --> HD as needed per nephrology team --> Monitor closely. #. Generalized body ache related to fluid overload. #. End-stage renal disease, on hemodialysis as needed --> Monitor. S/P HD. #. Tachycardia, to be seen by Cardiology Service, isolated T-wave and ST- segment depression in V6. --> HR has been ~80-90bpm --> S/P Chest CT -- Evidence of worsening CHF/interstitial edema. --> Monitor for improvement. #. Elevated BNP, potentially related to underlying CKD. #. Cardiomegaly. S/P Chest Xray --> Persistent but slightly decreased size of known right lung cavitary lesion. --> Persistent extensive interstitial and bilateral airspace opacities. --> Improved. Subjective Date patient seen: Jun 27, 2017 Constitutional: Denies: no symptoms, chills, diaphoresis, fever, malaise, weakness, other HEENT: Denies: no symptoms, eye pain, blurred vision, tearing, double vision, ear pain, ear discharge, nose pain, nose congestion, throat pain, throat swelling, mouth pain, mouth swelling, other Cardiovascular: Denies: no symptoms, chest pain, edema, irregular heart rate, lightheadedness, palpitations, syncope, other Respiratory: Denies: no symptoms, cough, orthopnea, shortness of breath, SOB with excertion, SOB at rest, sputum, stridor, wheezing, other Gastrointestinal/Abdominal: Denies: no symptoms, abdomen distended, abdominal pain, black stools, tarry stools, blood in stool, constipated, diarrhea, difficulty swallowing, nausea, poor appetite, poor fluid intake, rectal bleeding , vomiting, other Genitourinary: Denies: no symptoms, burning, discharge, frequency, flank pain, hematuria, incontinence, pain, urgency, other Neurologic/Psychiatric: Denies: no symptoms, anxiety, depressed, emotional problems, headache, numbness, paresthesia, pre-existing deficit, seizure, tingling, tremors, weakness, other Endocrine: Denies: no symptoms, excessive sweating, flushing, intolerance to cold, intolerance to heat, increased hunger, increased thirst, increased urine, unexplained weight gain, unexplained weight loss, other Hematologic/Lymphatic: Reports: anemia Allergies: Coded Allergies: IODINE AND IODIDE CONTAINING PRODUC (Verified Allergy, Mild, itching and pruritis, 06/25/17) Uncoded Allergies: CONTRAST/DYE (Allergy, Intermediate, PRURITIS AND ITCHING, 06/25/17) Subjective On pain control. No major events. No fever. Objective Last 24 Hour Vital Signs Date Time Temp Pulse Resp B/P (MAP) Pulse Ox O2 Delivery O2 Flow Rate FiO2 06/27/17 22:44 98.0 06/27/17 22:35 94 06/27/17 21:17 98.0 06/27/17 20:47 98.0 06/27/17 20:46 75 144/80 06/27/17 20:15 Nasal Cannula 4.0 06/27/17 20:06 98.0 75 20 144/80 98 Nasal Cannula 98.0 06/27/17 19:35 80 18 Nasal Cannula 4.0 06/27/17 19:35 93 Nasal Cannula 4.0 36 06/27/17 19:35 Nasal Cannula 4.0 36 06/27/17 17:00 Venturi Mask 5.0 06/27/17 16:45 98.2 83 20 102/61 Nasal Cannula 3.0 98.2 06/27/17 16:08 98.2 77 20 113/64 95 98.2 06/27/17 13:00 Nasal Cannula 06/27/17 13:00 97.7 68 20 144/93 Nasal Cannula 3.0 97.7 06/27/17 11:55 97.7 78 20 138/81 95 97.7 06/27/17 11:06 149/91 06/27/17 09:19 72 149/91 06/27/17 09:18 149/91 06/27/17 08:09 72 18 Venturi Mask 10.0 45 06/27/17 08:09 94 Venturi Mask 10.0 45 06/27/17 08:09 Venturi Mask 10.0 45 06/27/17 07:56 98.2 77 20 149/91 95 98.2 06/27/17 06:55 98.2 06/27/17 06:25 98.2 06/27/17 05:02 98.2 06/27/17 04:03 98.2 06/27/17 04:00 97.7 68 18 142/89 99 97.7 06/27/17 02:14 98.2 06/27/17 01:15 98.2 86 20 113/68 98 Nasal Cannula 98.2 06/27/17 00:00 98 Bi-pap 06/27/17 00:00 98.2 86 20 113/68 98 Bi-pap 98.2 Intake and Output 06/26/17 06/27/17 19:00 07:00 Intake Total 145 ml 665 ml Output Total 3000 ml Balance -2855 ml 665 ml Intake Oral 120 ml IV Total 25 ml 665 ml Hemodialysis UF 3000 ml # Voids 1 2 # Bowel Movements 2 1 Laboratory Tests 06/27/17 05:00: Aspergillus flavus Antibody [Pending], Aspergillus fumigatus Antibody [Pending] , Aspergillus niger Antibody [Pending] 06/27/17 05:09: White Blood Count 6.9, Red Blood Count 2.47L, Hemoglobin 7.5L, Hematocrit 23.6L , Mean Corpuscular Volume 96, Mean Corpuscular Hemoglobin 30.4, Mean Corpuscular Hemoglobin Concent 31.7L, Red Cell Distribution Width 17.5H, Platelet Count 104L, Mean Platelet Volume 5.8L, Neutrophils (%) (Auto) , Lymphocytes (%) (Auto) , Monocytes (%) (Auto) , Eosinophils (%) (Auto) , Basophils (%) (Auto) , Differential Total Cells Counted 100, Neutrophils % ( Manual) 57, Lymphocytes % (Manual) 20, Monocytes % (Manual) 14H, Eosinophils % ( Manual) 8H, Basophils % (Manual) 1, Band Neutrophils 0, Platelet Estimate DecreasedL, Platelet Morphology Normal, Anisocytosis 1+, Acanthocytes 1+, Sodium Level 136, Potassium Level 3.8, Chloride Level 95L, Carbon Dioxide Level 32, Anion Gap 9, Blood Urea Nitrogen 46H, Creatinine 11.2H, Estimat Glomerular Filtration Rate 5.7, Glucose Level 80, Calcium Level 8.5 Height (Feet): 5 Height (Inches): 7.00 Weight (Pounds): 233 General Appearance: no apparent distress Respiratory/Chest: decreased breath sounds Abdomen: soft Irving Parker MD Jun 27, 2017 23:18
--- NOTE | 2017-06-27 23:39 | General Progress Note ---
Assessment/Plan Assessment/Plan Assessment - Anemia, multifactorial - OB (+) Stool - w/u deferred due to respiratory status - ESRD/HD - DM - HTN - COPD - gallstones - RUQ TTP and improving LFT - abnormal GB ultrasound - cirrhotic appearing liver on CT - Hepatitis C (+) Recommendations - PO as tolerated - monitor LFT - transfuse PRN - Acid blockade - Defer EGD/Colon a this time Subjective Allergies: Coded Allergies: IODINE AND IODIDE CONTAINING PRODUC (Verified Allergy, Mild, itching and pruritis, 06/25/17) Uncoded Allergies: CONTRAST/DYE (Allergy, Intermediate, PRURITIS AND ITCHING, 06/25/17) Subjective above noted no events overnight poor appetite intermittent dyspnea Objective Last 24 Hour Vital Signs Date Time Temp Pulse Resp B/P (MAP) Pulse Ox O2 Delivery O2 Flow Rate FiO2 06/27/17 23:32 82 26 95 Facial 35 06/27/17 22:44 98.0 06/27/17 22:35 94 06/27/17 21:17 98.0 06/27/17 20:47 98.0 06/27/17 20:46 75 144/80 06/27/17 20:15 Nasal Cannula 4.0 06/27/17 20:06 98.0 75 20 144/80 98 Nasal Cannula 98.0 06/27/17 19:35 80 18 Nasal Cannula 4.0 06/27/17 19:35 93 Nasal Cannula 4.0 36 06/27/17 19:35 Nasal Cannula 4.0 36 06/27/17 17:00 Venturi Mask 5.0 06/27/17 16:45 98.2 83 20 102/61 Nasal Cannula 3.0 98.2 06/27/17 16:08 98.2 77 20 113/64 95 98.2 06/27/17 13:00 Nasal Cannula 06/27/17 13:00 97.7 68 20 144/93 Nasal Cannula 3.0 97.7 06/27/17 11:55 97.7 78 20 138/81 95 97.7 06/27/17 11:06 149/91 06/27/17 09:19 72 149/91 06/27/17 09:18 149/91 06/27/17 08:09 72 18 Venturi Mask 10.0 45 06/27/17 08:09 94 Venturi Mask 10.0 45 06/27/17 08:09 Venturi Mask 10.0 45 06/27/17 07:56 98.2 77 20 149/91 95 98.2 06/27/17 06:55 98.2 06/27/17 06:25 98.2 06/27/17 05:02 98.2 06/27/17 04:03 98.2 06/27/17 04:00 97.7 68 18 142/89 99 97.7 06/27/17 02:14 98.2 06/27/17 01:15 98.2 86 20 113/68 98 Nasal Cannula 98.2 06/27/17 00:00 98 Bi-pap 06/27/17 00:00 98.2 86 20 113/68 98 Bi-pap 98.2 Intake and Output 06/26/17 06/27/17 19:00 07:00 Intake Total 145 ml 665 ml Output Total 3000 ml Balance -2855 ml 665 ml Intake Oral 120 ml IV Total 25 ml 665 ml Hemodialysis UF 3000 ml # Voids 1 2 # Bowel Movements 2 1 Laboratory Tests 06/27/17 05:00: Aspergillus flavus Antibody [Pending], Aspergillus fumigatus Antibody [Pending] , Aspergillus niger Antibody [Pending] 06/27/17 05:09: White Blood Count 6.9, Red Blood Count 2.47L, Hemoglobin 7.5L, Hematocrit 23.6L , Mean Corpuscular Volume 96, Mean Corpuscular Hemoglobin 30.4, Mean Corpuscular Hemoglobin Concent 31.7L, Red Cell Distribution Width 17.5H, Platelet Count 104L, Mean Platelet Volume 5.8L, Neutrophils (%) (Auto) , Lymphocytes (%) (Auto) , Monocytes (%) (Auto) , Eosinophils (%) (Auto) , Basophils (%) (Auto) , Differential Total Cells Counted 100, Neutrophils % ( Manual) 57, Lymphocytes % (Manual) 20, Monocytes % (Manual) 14H, Eosinophils % ( Manual) 8H, Basophils % (Manual) 1, Band Neutrophils 0, Platelet Estimate DecreasedL, Platelet Morphology Normal, Anisocytosis 1+, Acanthocytes 1+, Sodium Level 136, Potassium Level 3.8, Chloride Level 95L, Carbon Dioxide Level 32, Anion Gap 9, Blood Urea Nitrogen 46H, Creatinine 11.2H, Estimat Glomerular Filtration Rate 5.7, Glucose Level 80, Calcium Level 8.5 Height (Feet): 5 Height (Inches): 7.00 Weight (Pounds): 233 Objective WDWN AA Man NCAT supple CTA RRR Soft mildly distended, (+) improved RUQ TTP No edema PERCY JOYNER Jun 27, 2017 23:39
[2017-06-28 00:06] VITALS: BP 109/61
[2017-06-28 04:02] VITALS: BP 107/66
[2017-06-28] MEDS: metroNIDAZOLE 500mg tab ORAL SCH ×3 (05:18→21:27)
[2017-06-28 07:26] LABS: ALANINE AMINOTRANSFERASE 20 U/L (12-78); ALBUMIN 2.5 G/DL (3.4-5.0); ALBUMIN/GLOBULIN RATIO 0.5 (1.0-2.7); ALKALINE PHOSPHATASE 150 U/L (46-116); ANION GAP 8 mmol/L (5-15); ASPARTATE AMINO TRANSFERASE 22 U/L (15-37); BILIRUBIN,TOTAL 0.8 MG/DL (0.2-1.0); BLOOD UREA NITROGEN 31 mg/dL (7-18); CALCIUM 8.8 MG/DL (8.5-10.1); CARBON DIOXIDE 36 MMOL/L (21-32); CHLORIDE 99 MMOL/L (98-107); CREATININE 9.2 MG/DL (0.55-1.30); POTASSIUM 3.9 MMOL/L (3.5-5.1); SODIUM 143 MMOL/L (136-145)
[2017-06-28 07:50] LABS: HEMATOCRIT 25.4 % (42.0-52.0); MEAN CORPUSCULAR VOLUME 98 FL (80-99); PLATELET COUNT 111 K/UL (150-450); RED BLOOD COUNT 2.59 M/UL (4.70-6.10); RED CELL DISTRIBUTION WIDTH 17.8 % (11.6-14.8); WHITE BLOOD COUNT 6.4 K/UL (4.8-10.8)
[2017-06-28 08:01] VITALS: BP 112/61
[2017-06-28] MEDS: Lisinopril 20mg tab ORAL SCH ×2 (09:34→18:28)
[2017-06-28] MEDS: Docusate 100mg cap ORAL SCH ×3 (09:34→18:27)
[2017-06-28] MEDS: Carvedilol 25mg Tab ORAL SCH ×2 (09:34→20:13)
[2017-06-28] MEDS: Tobradex Opth Oint 3.5gm BOTH EYES SCH ×4 (09:35→20:12)
[2017-06-28 11:58] VITALS: BP 122/71
[2017-06-28] MEDS: Nitroglycerin Patch 0.4mg TDERMAL SCH (12:05)
--- NOTE | 2017-06-28 12:11 | Infectious Diseases Prog Note ---
Assessment/Plan Assessment/Plan A: Cavitary PNA. SCx: Neg ( m/l necrotizing Pneum, r/o Fungal, r/o TB ) ; improving -CT chest 06/25: Since the prior study of 06/15/2017, and. From further reduction in size of previously demonstrated thick walled right upper lobe cavitary mass. This was previously thought to most likely represent a cavitary inflammatory mass, and the interim reduction in size certainly supports that. Much less likely a cavitary neoplasm, but follow-up to resolution is recommended. Markedly improved parenchymal disease bilaterally, since the previous study. Nonetheless , extensive atelectasis and groundglass consolidation persists. Persistent small right pleural effusion, smaller than on the prior study. Resolved left pleural effusion 6 mm nodular opacity in the right upper lobe, not evident previously but likely obscured by surrounding consolidated lung parenchyma. This should be followed up in 6 months to one year depending on results of interim follow-up exams -CXR 06/21: Persistent but slightly decreased size of known right lung cavitary lesion. Persistent extensive interstitial and bilateral airspace opacities. -sp cx 06/05, 06/06 normal resp jordin; repeat sp cx 06/18 PsA (singh S) + Providencia stuarti (S Ceftriaxone, R Cipro) (likely superinfection/HCAP) Rsp status improved but on 06/[address] his condition worsen T-SPOT :Neg AFB x 3 : Neg MTB PCR x2 : neg cryptococcus Ag, Histoplams mycelial Ab , Blastomyces ab : neg ; histoplasma yeast ab (not able to be done due to anticomplemenatry activity) -Cocci, Asp ag p -Fungitell + 144 06/21 Xray : improvement of cavity CT chest 06/15: Slightly smaller (6 cm diameter ) but mostly unchanged cavitary lesion in the right lung, previously thought to represent a cavitating inflammatory process. Lung abscess is certainly a possibility. Fairly extensive bilateral pulmonary parenchymal consolidation, slightly increased from previous exam of 06/05/2017. Likely a combination of pulmonary edema and pneumonia. Small right and trace left pleural effusion, new/increased from the previous study. CT 06/05: 7.8 x 5.3 x 6.6 cm dense opacity in the posterior inferior right upper lobe with a central cavitation. Chest x-ray : right mid lung infiltrate, possible cavitation Rule out tuberculosis, fungal infection, or necrotizing pneumonia. CRP 14 Influenza negative Low-grade fever, SP Status post leukocytosis. Transaminitis ,? 2/2 Hep C cirrhosis- no active Hep C as VL not detected -CT abd/p: Evidence of hepatic cirrhosis. Hepatosplenomegaly. evidence of generalized anasarca, with pleural fluid and generalized subcutaneous edema. Cholelithiasis, also previously reported. Possible diverticulosis. No evidence of diverticulitis US Abd : Cholelithiasis. There is gallbladder wall thickening, likely related to hemodynamic abnormalities Splenomegaly. Evidence of hepatic cirrhosis HIV : NEG Hep Panel B neg , C Ab : +ve , VL not detected leukopenia and TCP 2/2 splenomegaly Seizure disorder History of CVA History of pacemaker placement Hyperlipidemia Hypertension COPD/asthma End-stage renal disease, on hemodialysis Diabetes Anxiety Anemia Echo, ejection fraction 45% to 50%. PLAN: Continue Micafungin abx d#14 (switched from voriconazole given drug-drug interaction with Rifampin) for possible Aspergillosis pending cultures and fungal serologies -Continue Flagyl (in addition with Levaquin will provide anaerobic coverage for possible aspiration/cavitary and now PsA PNA as no isolation of resistant organisms); abx d# 26/28-42 Continue empiric Ethambutol and Levaquin d# 16 empiric for TB pending cultures -Cotninue Rifampin 600mg qd #4 and d/c amikacin d# 15 -monitor LFTs 06/27 SP Ceftriaxone #7 / SP PO Voriconazole #3 3/16 SP Liposomal Ampho #8 3/ SP IV Vancomycin #14, Meropenem #5 3/ SP Zosyn d# 10 3/4 SP Zithromax D# 6 f/u sputum culture (, fungal, and AFB x3). f/u Coccidioidal ,Galactomannan and Fungitell, Histoplasma ag urine Airborne isolation for now Disposition per Dept of Public Health Subjective Allergies: Coded Allergies: IODINE AND IODIDE CONTAINING PRODUC (Verified Allergy, Mild, itching and pruritis, 06/25/17) Uncoded Allergies: CONTRAST/DYE (Allergy, Intermediate, PRURITIS AND ITCHING, 06/25/17) Subjective afebrile no leukocytosis no CMP today Objective Vital Signs Last 24 Hour Vital Signs Date Time Temp Pulse Resp B/P (MAP) Pulse Ox O2 Delivery O2 Flow Rate FiO2 06/28/17 12:05 122/71 06/28/17 11:58 98.2 94 19 122/71 95 98.2 06/28/17 09:43 98.2 06/28/17 09:34 112/61 06/28/17 09:34 86 112/61 06/28/17 09:13 98.2 06/28/17 08:01 98.2 86 19 112/61 97 98.2 06/28/17 08:00 Nasal Cannula 4.0 36 06/28/17 08:00 94 Nasal Cannula 4.0 36 06/28/17 08:00 75 18 Nasal Cannula 4.0 06/28/17 05:19 98.8 06/28/17 04:02 98.8 81 20 107/66 94 Nasal Cannula 98.8 06/28/17 01:24 95 06/28/17 01:10 97.7 06/28/17 00:06 97.7 79 20 109/61 94 Nasal Cannula 97.7 06/27/17 23:43 98.0 06/27/17 23:32 82 26 95 Facial 35 06/27/17 22:44 98.0 06/27/17 22:35 94 06/27/17 20:47 98.0 06/27/17 20:46 75 144/80 06/27/17 20:15 Nasal Cannula 4.0 06/27/17 20:06 98.0 75 20 144/80 98 Nasal Cannula 98.0 06/27/17 19:35 80 18 Nasal Cannula 4.0 06/27/17 19:35 93 Nasal Cannula 4.0 36 06/27/17 19:35 Nasal Cannula 4.0 36 06/27/17 17:00 Venturi Mask 5.0 06/27/17 16:45 98.2 83 20 102/61 Nasal Cannula 3.0 98.2 06/27/17 16:08 98.2 77 20 113/64 95 98.2 06/27/17 13:00 Nasal Cannula 06/27/17 13:00 97.7 68 20 144/93 Nasal Cannula 3.0 97.7 Height (Feet): 5 Height (Inches): 7.00 Weight (Pounds): 234 Objective General Appearance: WD/WN, alert, moderate distress EENT: PERRL/EOMI, normal ENT inspection Neck: non-tender, normal alignment, supple, normal inspection Cardiovascular: normal peripheral pulses, normal rate, regular rhythm, no gallop/murmur, no JVD Respiratory/Chest: Non rebreather; respiratory distress, crackles/rales, rhonchi - bilaterally, expiratory wheezing Abdomen: normal bowel sounds, non tender, soft, no organomegaly, no mass Extremities: normal range of motion Neurologic: neighborhood coordinator 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, no motor/sensory deficits Skin: normal pigmentation, warm/dry Laboratory Tests Test 06/28/17 06:00 White Blood Count 6.4 K/UL (4.8-10.8) Red Blood Count 2.59 M/UL (4.70-6.10) L Hemoglobin 8.0 G/DL (14.2-18.0) L Hematocrit 25.4 % (42.0-52.0) L Mean Corpuscular Volume 98 FL (80-99) Mean Corpuscular Hemoglobin 30.8 PG (27.0-31.0) Mean Corpuscular Hemoglobin Concent 31.4 G/DL (32.0-36.0) L Red Cell Distribution Width 17.8 % (11.6-14.8) H Platelet Count 111 K/UL (150-450) L Mean Platelet Volume 7.2 FL (6.5-10.1) Neutrophils (%) (Auto) % (45.0-75.0) Lymphocytes (%) (Auto) % (20.0-45.0) Monocytes (%) (Auto) % (1.0-10.0) Eosinophils (%) (Auto) % (0.0-3.0) Basophils (%) (Auto) % (0.0-2.0) Differential Total Cells Counted 100 Neutrophils % (Manual) 55 % (45-75) Lymphocytes % (Manual) 22 % (20-45) Monocytes % (Manual) 20 % (1-10) H Eosinophils % (Manual) 3 % (0-3) Basophils % (Manual) 0 % (0-2) Band Neutrophils 0 % (0-8) Platelet Estimate Decreased L Platelet Morphology Normal Hypochromasia 1+ Anisocytosis 1+ Microcytosis 1+ Sodium Level 143 MMOL/L (136-145) Potassium Level 3.9 MMOL/L (3.5-5.1) Chloride Level 99 MMOL/L (98-107) Carbon Dioxide Level 36 MMOL/L (21-32) H Anion Gap 8 mmol/L (5-15) Blood Urea Nitrogen 31 mg/dL (7-18) H Creatinine 9.2 MG/DL (0.55-1.30) H Estimat Glomerular Filtration Rate 7.2 mL/min (>60) Glucose Level 75 MG/DL (74-106) Calcium Level 8.8 MG/DL (8.5-10.1) Total Bilirubin 0.8 MG/DL (0.2-1.0) Aspartate Amino Transf (AST/SGOT) 22 U/L (15-37) Alanine Aminotransferase (ALT/SGPT) 20 U/L (12-78) Alkaline Phosphatase 150 U/L (46-116) H Total Protein 7.1 G/DL (6.4-8.2) Albumin 2.5 G/DL (3.4-5.0) L Globulin 4.6 g/dL Albumin/Globulin Ratio 0.5 (1.0-2.7) L Current Medications Medications (Trade) Dose Ordered Sig/Jose Route PRN Reason Start Time Stop Time Status Last Admin Dose Admin Acetaminophen (Tylenol) 650 mg Q4H PRN RECTAL Mild Pain (Pain Scale 1-3) 06/16/17 19:00 07/09/17 18:59 Albuterol/ Ipratropium (Albuterol/ Ipratropium) 3 ml Q4HRT PRN HHN sob 06/27/17 13:15 07/02/17 13:14 Alprazolam (Xanax) 2 mg DAILYPRN PRN ORAL For Anxiety 06/24/17 17:00 07/01/17 16:59 06/27/17 12:50 Amikacin Sulfate 950 mg/Sodium Chloride 113.8 ml @ 227.6 mls/ hr FRI-FRI-FRI IV 06/18/17 21:00 06/30/17 20:59 06/27/17 22:44 Carisoprodol (Soma) 350 mg Q6H PRN ORAL MUSCLE SPASMS 06/16/17 19:00 07/14/17 18:59 06/27/17 22:44 Carvedilol (Coreg) 25 mg EVERY 12 HOURS ORAL 06/16/17 21:00 07/04/17 11:29 06/28/17 09:34 Ceftriaxone Sodium 2 gm/ Dextrose 55 ml @ 110 mls/hr Q24H IVPB 06/21/17 20:00 06/28/17 19:59 06/27/17 20:47 Chlorhexidine Gluconate (Mireille-Hex 2%) 1 applic DAILY@1999 TOPIC 06/16/17 20:00 07/05/17 19:59 06/27/17 20:45 Clonidine HCl (Catapres Tab) 0.1 mg Q4H PRN ORAL bp over 160 syst 06/16/17 19:00 07/03/17 18:59 Dextrose (Dextrose 50%) STAT PRN IV Hypoglycemia 06/16/17 19:00 07/14/17 18:59 Docusate Sodium (Colace) 100 mg THREE TIMES A DAY ORAL 06/17/17 20:00 07/03/17 19:59 06/28/17 09:34 Ethambutol HCl (Myambutol) 1,000 mg 3XW ORAL 06/18/17 09:00 07/18/17 23:59 06/27/17 09:19 Hydromorphone HCl (Dilaudid) 1 mg Q4H PRN IVP Moderate Pain (Pain Scale 4-6) 06/27/17 18:00 07/04/17 17:59 Hydromorphone HCl (Dilaudid) 2 mg Q4H PRN IVP Severe Pain (Pain Scale 7-10) 06/27/17 21:00 07/04/17 20:59 06/28/17 09:13 Levofloxacin (Levaquin) 750 mg EVERY OTHER DAY@1999 ORAL 06/17/17 20:00 06/30/17 19:59 06/27/17 20:46 Lisinopril (Prinivil) 20 mg BID ORAL 06/17/17 09:00 07/04/17 08:59 06/28/17 09:34 Metronidazole (Flagyl) 500 mg Q8HR ORAL 06/17/17 22:00 06/30/17 21:59 06/28/17 05:18 Micafungin Sodium 100 mg/Sodium Chloride 110 ml @ 110 mls/hr Q24H IVPB 06/25/17 20:00 07/02/17 23:59 06/27/17 22:43 Nitroglycerin (Ntg) 0.4 mg Q5M PRN SL Prn Chest Pain 06/16/17 18:15 07/04/17 09:14 Nitroglycerin (Ntg) 1 patch Q24H TDERMAL 06/17/17 11:30 07/04/17 11:29 06/28/17 12:05 Ondansetron HCl (Zofran) 4 mg Q6H PRN IVP Nausea & Vomiting 06/16/17 18:30 07/14/17 18:29 06/28/17 05:19 Pantoprazole (Protonix) 40 mg ACBREAKFAST ORAL 06/17/17 06:30 07/15/17 06:29 06/28/17 05:18 Polyethylene Glycol (Miralax) 17 gm DAILYPRN PRN ORAL Constipation 06/16/17 18:30 07/14/17 18:29 Promethazine HCl/ Codeine (Phenergan with Codeine) 5 ml Q4H PRN ORAL For Cough 06/16/17 18:30 07/05/17 18:29 06/27/17 22:44 Rifampin (Rifadin) 600 mg DAILY ORAL 06/25/17 17:00 07/25/17 16:59 06/28/17 09:34 Sevelamer Carbonate (Renvela) 2,400 mg THREE TIMES A DAY ORAL 06/16/17 18:45 07/16/17 18:44 06/28/17 09:35 Tobramycin/ Dexamethasone (Tobradex Opth Oint) 1 applic FOUR TIMES A DAY BOTH EYES 06/22/17 18:00 06/28/17 23:59 06/28/17 09:35 Aleja Crocker M.D. Jun 28, 2017 12:11
[2017-06-28] MEDS: HYDROmorphone 1mg/ml Carpuject IVP PRN ×3 (13:05→22:50)
--- NOTE | 2017-06-28 14:12 | Pulmonology Progress Note ---
Assessment/Plan Assessment/Plan ASSESSMENT R upper lobe cavitary mass Necrotizing PNA with cavitating lesion RUL r/o TB Acute hypoxemic RF requiring BiPAP -resolved Pleuritic chest pain likely due to necrotizing PNA . Elevated troponin Systolic CHF ( recent negative reversible perfusion defect.) cardiomyopathy pulmonary edema Asthma. End-stage renal disease, on hemodialysis. Hypertensive urgency . Anemia of chronic disease. History of intracardiac defibrillator placement. Prior history of cerebrovascular accident. ESRD on HD thrombocytopenia transaminitis hepatitis C liver cirrhosis cholelithiasis PLAN OF CARE MS resp isolation CT chest 06/26 -Further reduction in size of previously demonstrated thick walled right upper lobe cavitary mass. Currently measures 6 cm AP by 5.2 cm transverse by 3.9 cm craniocaudad, previously approximately 7.8 x 4.9 x 5.2 cm. This was previously thought to most likely represent a cavitary inflammatory mass, and the interim reduction in size certainly supports that. Much less likely a cavitary neoplasm CT chest 06/15- Slightly smaller but mostly unchanged cavitary lesion in the right lung, previously thought to represent a cavitating inflammatory process. Lung abscess is certainly a possibility initial CT chest with evidence of necrotizing PNA with cavitary lesion - 7.8 x 5.3 x 6.6 cm dense opacity in the posterior inferior right upper lobe with a central cavitation. T-SPOT-Neg ; sputum AFB x 3- Neg MTB by PCR x2 -neg cryptococcus Ag, Histo Ab , Blasto ab-all neg ; Cocci, Asp ag pending sputum cx + Providencia/Pseudomonas Ethambutol , Levaquin and Rifaximin, monitor LFT-down to normal, Flagyl added by ID for anaerobic coverage fup with fungal serology and AFB culture Micafungin to cover for possible Aspergilloses O2 titrate, pulm toilet BiPAP at HS and prn HIV negative blood cx negative, influenza screen negative a/tussive prn cardio follows BP management with BB CCB and [facility] medical management for SHF nephro follows HD as per nephro monitor renal parameters, lytes, avoid nephrotoxic heme follows transfuse prn with goal to keep Hgb above 7 anemia w/up c/w anemia of chronic disease and multifactorial as per GI stool OB+ x1 monitor PLT count- better off Heparin SCD Venous Duplex BLE- negative GI follows hep panel + hep C, no viral load , thus no active infection cirrhosis likely 2 to hep C abd US + cholelithiasis, HSM, surgeon consulted CT A/P with hepatic cirrhosis, HSM, anasarca and cholelithiasis, no evidence of acute cholecystis, no surgical intervention necessary per GI defer EGD/colon for now cont resp isolation disposition after Public [facility] Department clearance case discussed and evaluated by supervising physician Subjective Allergies: Coded Allergies: IODINE AND IODIDE CONTAINING PRODUC (Verified Allergy, Mild, itching and pruritis, 06/25/17) Uncoded Allergies: CONTRAST/DYE (Allergy, Intermediate, PRURITIS AND ITCHING, 06/25/17) Subjective on resp isolation for TB no SOB today s/p HD 06/27 on O2 via NC afebrile, no leukocytosis Objective Last 24 Hour Vital Signs Date Time Temp Pulse Resp B/P (MAP) Pulse Ox O2 Delivery O2 Flow Rate FiO2 06/28/17 13:05 98.2 06/28/17 12:05 122/71 06/28/17 11:58 98.2 94 19 122/71 95 98.2 06/28/17 09:43 98.2 06/28/17 09:34 112/61 06/28/17 09:34 86 112/61 06/28/17 09:13 98.2 06/28/17 08:01 98.2 86 19 112/61 97 98.2 06/28/17 08:00 Nasal Cannula 4.0 36 06/28/17 08:00 94 Nasal Cannula 4.0 36 06/28/17 08:00 75 18 Nasal Cannula 4.0 06/28/17 05:19 98.8 06/28/17 04:02 98.8 81 20 107/66 94 Nasal Cannula 98.8 06/28/17 01:24 95 06/28/17 01:10 97.7 06/28/17 00:06 97.7 79 20 109/61 94 Nasal Cannula 97.7 06/27/17 23:43 98.0 06/27/17 23:32 82 26 95 Facial 35 06/27/17 22:44 98.0 06/27/17 22:35 94 06/27/17 20:47 98.0 06/27/17 20:46 75 144/80 06/27/17 20:15 Nasal Cannula 4.0 3/23/18 20:06 98.0 75 20 144/80 98 Nasal Cannula 98.0 06/27/17 19:35 80 18 Nasal Cannula 4.0 06/27/17 19:35 93 Nasal Cannula 4.0 36 06/27/17 19:35 Nasal Cannula 4.0 36 06/27/17 17:00 Venturi Mask 5.0 06/27/17 16:45 98.2 83 20 102/61 Nasal Cannula 3.0 98.2 06/27/17 16:08 98.2 77 20 113/64 95 98.2 Intake and Output 06/27/17 06/28/17 19:00 07:00 Intake Total 560 ml 338.8 ml Output Total 3000 ml Balance -2440 ml 338.8 ml Intake Oral 360 ml 60 ml IV Total 200 ml 278.8 ml Hemodialysis UF 3000 ml # Bowel Movements 1 Objective General Appearance: no acute distress, obese, awake, alert, oriented x4 AA male , HEENT: normocephalic, atraumatic, anicteric Respiratory/Chest: decreased breath sounds, ICD LT chest Cardiovascular: normal rate, LUE AV shunt + bruit/thrill, L neck IJ CL intact Abdomen: normal bowel sounds, soft, non tender, obese Extremities: +1 edema BLE Neurologic/Psychiatric: alert, responsive Musculoskeletal: normal muscle bulk Laboratory Tests 06/28/17 06:00: White Blood Count 6.4, Red Blood Count 2.59L, Hemoglobin 8.0L, Hematocrit 25.4L , Mean Corpuscular Volume 98, Mean Corpuscular Hemoglobin 30.8, Mean Corpuscular Hemoglobin Concent 31.4L, Red Cell Distribution Width 17.8H, Platelet Count 111L, Mean Platelet Volume 7.2, Neutrophils (%) (Auto) , Lymphocytes (%) (Auto) , Monocytes (%) (Auto) , Eosinophils (%) (Auto) , Basophils (%) (Auto) , Differential Total Cells Counted 100, Neutrophils % ( Manual) 55, Lymphocytes % (Manual) 22, Monocytes % (Manual) 20H, Eosinophils % ( Manual) 3, Basophils % (Manual) 0, Band Neutrophils 0, Platelet Estimate DecreasedL, Platelet Morphology Normal, Hypochromasia 1+, Anisocytosis 1+, Microcytosis 1+, Sodium Level 143, Potassium Level 3.9, Chloride Level 99, Carbon Dioxide Level 36H, Anion Gap 8, Blood Urea Nitrogen 31H, Creatinine 9.2H , Estimat Glomerular Filtration Rate 7.2, Glucose Level 75, Calcium Level 8.8, Total Bilirubin 0.8, Aspartate Amino Transf (AST/SGOT) 22, Alanine Aminotransferase (ALT/SGPT) 20, Alkaline Phosphatase 150H, Total Protein 7.1, Albumin 2.5L, Globulin 4.6, Albumin/Globulin Ratio 0.5L Current Medications Medications (Trade) Dose Ordered Sig/Jose Route PRN Reason Start Time Stop Time Status Last Admin Dose Admin Acetaminophen (Tylenol) 650 mg Q4H PRN RECTAL Mild Pain (Pain Scale 1-3) 06/16/17 19:00 07/09/17 18:59 Albuterol/ Ipratropium (Albuterol/ Ipratropium) 3 ml Q4HRT PRN HHN sob 06/27/17 13:15 07/02/17 13:14 Alprazolam (Xanax) 2 mg DAILYPRN PRN ORAL For Anxiety 06/24/17 17:00 07/01/17 16:59 06/27/17 12:50 Carisoprodol (Soma) 350 mg Q6H PRN ORAL MUSCLE SPASMS 06/16/17 19:00 07/14/17 18:59 06/27/17 22:44 Carvedilol (Coreg) 25 mg EVERY 12 HOURS ORAL 06/16/17 21:00 07/04/17 11:29 06/28/17 09:34 Ceftriaxone Sodium 2 gm/ Dextrose 55 ml @ 110 mls/hr Q24H IVPB 06/21/17 20:00 06/28/17 19:59 06/27/17 20:47 Chlorhexidine Gluconate (Mireille-Hex 2%) 1 applic DAILY@2000 TOPIC 06/16/17 20:00 07/05/17 19:59 06/27/17 20:45 Clonidine HCl (Catapres Tab) 0.1 mg Q4H PRN ORAL bp over 160 syst 06/16/17 19:00 07/03/17 18:59 Dextrose (Dextrose 50%) STAT PRN IV Hypoglycemia 06/16/17 19:00 07/14/17 18:59 Docusate Sodium (Colace) 100 mg THREE TIMES A DAY ORAL 06/17/17 20:00 07/03/17 19:59 06/28/17 13:04 Ethambutol HCl (Myambutol) 1,000 mg 3XW ORAL 06/18/17 09:00 07/18/17 23:59 06/27/17 09:19 Hydromorphone HCl (Dilaudid) 1 mg Q4H PRN IVP Moderate Pain (Pain Scale 4-6) 06/27/17 18:00 07/04/17 17:59 06/28/17 13:05 Hydromorphone HCl (Dilaudid) 2 mg Q4H PRN IVP Severe Pain (Pain Scale 7-10) 06/27/17 21:00 07/04/17 20:59 06/28/17 09:13 Levofloxacin (Levaquin) 750 mg EVERY OTHER DAY@1999 ORAL 06/17/17 20:00 06/30/17 19:59 06/27/17 20:46 Lisinopril (Prinivil) 20 mg BID ORAL 06/17/17 09:00 07/04/17 08:59 06/28/17 09:34 Metronidazole (Flagyl) 500 mg Q8HR ORAL 06/17/17 22:00 06/30/17 21:59 06/28/17 13:04 Micafungin Sodium 100 mg/Sodium Chloride 110 ml @ 110 mls/hr Q24H IVPB 06/25/17 20:00 07/02/17 23:59 06/27/17 22:43 Nitroglycerin (Ntg) 0.4 mg Q5M PRN SL Prn Chest Pain 06/16/17 18:15 07/04/17 09:14 Nitroglycerin (Ntg) 1 patch Q24H TDERMAL 06/17/17 11:30 07/04/17 11:29 06/28/17 12:05 Ondansetron HCl (Zofran) 4 mg Q6H PRN IVP Nausea & Vomiting 06/16/17 18:30 07/14/17 18:29 06/28/17 05:19 Pantoprazole (Protonix) 40 mg ACBREAKFAST ORAL 06/17/17 06:30 07/15/17 06:29 06/28/17 05:18 Polyethylene Glycol (Miralax) 17 gm DAILYPRN PRN ORAL Constipation 06/16/17 18:30 07/14/17 18:29 Promethazine HCl/ Codeine (Phenergan with Codeine) 5 ml Q4H PRN ORAL For Cough 06/16/17 18:30 07/05/17 18:29 06/27/17 22:44 Rifampin (Rifadin) 600 mg DAILY ORAL 06/25/17 17:00 07/25/17 16:59 06/28/17 09:34 Sevelamer Carbonate (Renvela) 2,400 mg THREE TIMES A DAY ORAL 06/16/17 18:45 07/16/17 18:44 06/28/17 13:12 Tobramycin/ Dexamethasone (Tobradex Opth Oint) 1 applic FOUR TIMES A DAY BOTH EYES 06/22/17 18:00 06/28/17 23:59 06/28/17 13:04 Rohan ([facility])Mariela NP Jun 28, 2017 14:12
--- NOTE | 2017-06-28 14:50 | Internal Med Progress Note ---
Subjective Date of Service: Jun 28, 2017 Physician Name Zoey Pires Attending Physician Chaitanya Weinstein MD Current Medications Medications (Trade) Dose Ordered Sig/Jose Route PRN Reason Start Time Stop Time Status Last Admin Dose Admin Acetaminophen (Tylenol) 650 mg Q4H PRN RECTAL Mild Pain (Pain Scale 1-3) 06/16/17 19:00 07/09/17 18:59 Albuterol/ Ipratropium (Albuterol/ Ipratropium) 3 ml Q4HRT PRN HHN sob 06/27/17 13:15 07/02/17 13:14 Alprazolam (Xanax) 2 mg DAILYPRN PRN ORAL For Anxiety 06/24/17 17:00 07/01/17 16:59 06/27/17 12:50 Carisoprodol (Soma) 350 mg Q6H PRN ORAL MUSCLE SPASMS 06/16/17 19:00 07/14/17 18:59 06/27/17 22:44 Carvedilol (Coreg) 25 mg EVERY 12 HOURS ORAL 06/16/17 21:00 07/04/17 11:29 06/28/17 09:34 Ceftriaxone Sodium 2 gm/ Dextrose 55 ml @ 110 mls/hr Q24H IVPB 06/21/17 20:00 06/28/17 19:59 06/27/17 20:47 Chlorhexidine Gluconate (Mireille-Hex 2%) 1 applic DAILY@2000 TOPIC 06/16/17 20:00 07/05/17 19:59 06/27/17 20:45 Clonidine HCl (Catapres Tab) 0.1 mg Q4H PRN ORAL bp over 160 syst 06/16/17 19:00 07/03/17 18:59 Dextrose (Dextrose 50%) STAT PRN IV Hypoglycemia 06/16/17 19:00 07/14/17 18:59 Docusate Sodium (Colace) 100 mg THREE TIMES A DAY ORAL 06/17/17 20:00 07/03/17 19:59 06/28/17 13:04 Ethambutol HCl (Myambutol) 1,000 mg 3XW ORAL 06/18/17 09:00 07/18/17 23:59 06/27/17 09:19 Hydromorphone HCl (Dilaudid) 1 mg Q4H PRN IVP Moderate Pain (Pain Scale 4-6) 06/27/17 18:00 07/04/17 17:59 06/28/17 13:05 Hydromorphone HCl (Dilaudid) 2 mg Q4H PRN IVP Severe Pain (Pain Scale 7-10) 06/27/17 21:00 07/04/17 20:59 06/28/17 09:13 Levofloxacin (Levaquin) 750 mg EVERY OTHER DAY@2000 ORAL 06/17/17 20:00 06/30/17 19:59 06/27/17 20:46 Lisinopril (Prinivil) 20 mg BID ORAL 06/17/17 09:00 07/04/17 08:59 06/28/17 09:34 Metronidazole (Flagyl) 500 mg Q8HR ORAL 06/17/17 22:00 06/30/17 21:59 06/28/17 13:04 Micafungin Sodium 100 mg/Sodium Chloride 110 ml @ 110 mls/hr Q24H IVPB 06/25/17 20:00 07/02/17 23:59 06/27/17 22:43 Nitroglycerin (Ntg) 0.4 mg Q5M PRN SL Prn Chest Pain 06/16/17 18:15 07/04/17 09:14 Nitroglycerin (Ntg) 1 patch Q24H TDERMAL 06/17/17 11:30 07/04/17 11:29 06/28/17 12:05 Ondansetron HCl (Zofran) 4 mg Q6H PRN IVP Nausea & Vomiting 06/16/17 18:30 07/14/17 18:29 06/28/17 05:19 Pantoprazole (Protonix) 40 mg ACBREAKFAST ORAL 06/17/17 06:30 07/15/17 06:29 06/28/17 05:18 Polyethylene Glycol (Miralax) 17 gm DAILYPRN PRN ORAL Constipation 06/16/17 18:30 07/14/17 18:29 Promethazine HCl/ Codeine (Phenergan with Codeine) 5 ml Q4H PRN ORAL For Cough 06/16/17 18:30 07/05/17 18:29 06/27/17 22:44 Rifampin (Rifadin) 600 mg DAILY ORAL 06/25/17 17:00 07/25/17 16:59 06/28/17 09:34 Sevelamer Carbonate (Renvela) 2,400 mg THREE TIMES A DAY ORAL 06/16/17 18:45 07/16/17 18:44 06/28/17 13:12 Tobramycin/ Dexamethasone (Tobradex Opth Oint) 1 applic FOUR TIMES A DAY BOTH EYES 06/22/17 18:00 06/28/17 23:59 06/28/17 13:04 Allergies: Coded Allergies: IODINE AND IODIDE CONTAINING PRODUC (Verified Allergy, Mild, itching and pruritis, 06/25/17) Uncoded Allergies: CONTRAST/DYE (Allergy, Intermediate, PRURITIS AND ITCHING, 06/25/17) ROS Limited/Unobtainable: No Constitutional: Reports: no symptoms HEENT: Reports: no symptoms Cardiovascular: Reports: no symptoms Respiratory: Reports: shortness of breath Gastrointestinal/Abdominal: Reports: no symptoms Genitourinary: Reports: no symptoms Neurologic/Psychiatric: Reports: no symptoms Subjective 57 YO M admitted with chest pain and shortness of breath. Now pneumonia and candelaria heart failure. Back on nasal canula. Cover for Int Med-Dr Weinstein. Hemodialysis today 06/25 Objective Last Vital Signs Date Time Temp Pulse Resp B/P (MAP) Pulse Ox O2 Delivery O2 Flow Rate FiO2 06/28/17 13:35 98.2 06/28/17 12:05 122/71 06/28/17 11:58 94 19 95 06/28/17 08:00 Nasal Cannula 4.0 36 Laboratory Tests Test 06/28/17 06:00 White Blood Count 6.4 K/UL (4.8-10.8) Red Blood Count 2.59 M/UL (4.70-6.10) L Hemoglobin 8.0 G/DL (14.2-18.0) L Hematocrit 25.4 % (42.0-52.0) L Mean Corpuscular Volume 98 FL (80-99) Mean Corpuscular Hemoglobin 30.8 PG (27.0-31.0) Mean Corpuscular Hemoglobin Concent 31.4 G/DL (32.0-36.0) L Red Cell Distribution Width 17.8 % (11.6-14.8) H Platelet Count 111 K/UL (150-450) L Mean Platelet Volume 7.2 FL (6.5-10.1) Neutrophils (%) (Auto) % (45.0-75.0) Lymphocytes (%) (Auto) % (20.0-45.0) Monocytes (%) (Auto) % (1.0-10.0) Eosinophils (%) (Auto) % (0.0-3.0) Basophils (%) (Auto) % (0.0-2.0) Differential Total Cells Counted 100 Neutrophils % (Manual) 55 % (45-75) Lymphocytes % (Manual) 22 % (20-45) Monocytes % (Manual) 20 % (1-10) H Eosinophils % (Manual) 3 % (0-3) Basophils % (Manual) 0 % (0-2) Band Neutrophils 0 % (0-8) Platelet Estimate Decreased L Platelet Morphology Normal Hypochromasia 1+ Anisocytosis 1+ Microcytosis 1+ Sodium Level 143 MMOL/L (136-145) Potassium Level 3.9 MMOL/L (3.5-5.1) Chloride Level 99 MMOL/L (98-107) Carbon Dioxide Level 36 MMOL/L (21-32) H Anion Gap 8 mmol/L (5-15) Blood Urea Nitrogen 31 mg/dL (7-18) H Creatinine 9.2 MG/DL (0.55-1.30) H Estimat Glomerular Filtration Rate 7.2 mL/min (>60) Glucose Level 75 MG/DL (74-106) Calcium Level 8.8 MG/DL (8.5-10.1) Total Bilirubin 0.8 MG/DL (0.2-1.0) Aspartate Amino Transf (AST/SGOT) 22 U/L (15-37) Alanine Aminotransferase (ALT/SGPT) 20 U/L (12-78) Alkaline Phosphatase 150 U/L (46-116) H Total Protein 7.1 G/DL (6.4-8.2) Albumin 2.5 G/DL (3.4-5.0) L Globulin 4.6 g/dL Albumin/Globulin Ratio 0.5 (1.0-2.7) L Intake and Output 06/27/17 06/28/17 19:00 07:00 Intake Total 560 ml 338.8 ml Output Total 3000 ml Balance -2440 ml 338.8 ml Intake Oral 360 ml 60 ml IV Total 200 ml 278.8 ml Hemodialysis UF 3000 ml # Bowel Movements 1 Objective General Appearance: WD/WN, alert, moderate distress EENT: PERRL/EOMI, normal ENT inspection Neck: non-tender, normal alignment, supple, normal inspection Cardiovascular: normal peripheral pulses, normal rate, regular rhythm, no gallop/murmur, no JVD Respiratory/Chest: Nasal canula; respiratory distress, crackles/rales, rhonchi - bilaterally, expiratory wheezing Abdomen: normal bowel sounds, non tender, soft, no organomegaly, no mass Extremities: normal range of motion Neurologic: [facility] 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 Currently on nasal canula. See pulmonay note. (2) Pleuritic chest pain (3) Hemoptysis Assessment & Plan: Due to pneumonia (4) Pneumonia Assessment & Plan: Providencia and pseudamonas. RUL and cavitary. Concerning for TB. Await AFB cultures-see ID consult. Continue vanco and ethambutol per ID. Continue rocephin, micafungin, flagyl, amikacin, levaquin, and rifampin (5) Shortness of breath (6) ESRD (end stage renal disease) on dialysis Assessment & Plan: See nephrology note. Hemodialysis 06/27/17 per nephrology (7) Hyperkalemia Assessment & Plan: Due to renal failure. Hemodialysis 06/12/17 per nephrology (8) COPD (chronic obstructive pulmonary disease) (9) HTN (hypertension) Assessment & Plan: Continue coreg and lisinopril. (10) CHF (congestive heart failure) (11) Elevated troponin Assessment & Plan: ?due to renal failure? See cardiology note. (12) Intractable abdominal pain Assessment & Plan: See surgery note. Await CT abdomen (13) Conjunctivitis Assessment & Plan: start tobramycin ZOEY PIRES Jun 28, 2017 14:49
[2017-06-28] MEDS: ALPRAZolam 0.5mg tab ORAL PRN (15:22)
[2017-06-28 15:55] VITALS: BP 131/84
--- NOTE | 2017-06-28 16:03 | Nephrology Progress Note ---
Assessment/Plan Problem List: (1) ESRD (end stage renal disease) on dialysis (2) Shortness of breath (3) Anemia Assessment worsenning Anemia ESRD , missed HD , admitted with high K and pulmonary edema Acute respiratory distress due to volume overload elevated troponin r/o ACS h/o COPD ? exacerbation HTN urgency Cardiomyopathy L AICD anemia of chronic kidney disease Hx of CVA Plan Plan: Low H&H - consider transfusion HD next 06/30 Transfused Phos binders BP meds adjustment Optimize cardiac status per orders Subjective ROS Limited/Unobtainable: No Constitutional: Reports: malaise Objective Objective Last 24 Hour Vital Signs Date Time Temp Pulse Resp B/P (MAP) Pulse Ox O2 Delivery O2 Flow Rate FiO2 06/28/17 13:35 98.2 06/28/17 13:05 98.2 06/28/17 12:05 122/71 06/28/17 11:58 98.2 94 19 122/71 95 98.2 06/28/17 09:43 98.2 06/28/17 09:34 112/61 06/28/17 09:34 86 112/61 06/28/17 09:13 98.2 06/28/17 08:01 98.2 86 19 112/61 97 98.2 06/28/17 08:00 Nasal Cannula 4.0 36 06/28/17 08:00 94 Nasal Cannula 4.0 36 06/28/17 08:00 75 18 Nasal Cannula 4.0 06/28/17 05:19 98.8 06/28/17 04:02 98.8 81 20 107/66 94 Nasal Cannula 98.8 06/28/17 01:24 95 06/28/17 01:10 97.7 06/28/17 00:06 97.7 79 20 109/61 94 Nasal Cannula 97.7 06/27/17 23:43 98.0 06/27/17 23:32 82 26 95 Facial 35 06/27/17 22:44 98.0 06/27/17 22:35 94 06/27/17 20:47 98.0 06/27/17 20:46 75 144/80 06/27/17 20:15 Nasal Cannula 4.0 06/27/17 20:06 98.0 75 20 144/80 98 Nasal Cannula 98.0 06/27/17 19:35 80 18 Nasal Cannula 4.0 06/27/17 19:35 93 Nasal Cannula 4.0 36 06/27/17 19:35 Nasal Cannula 4.0 36 06/27/17 17:00 Venturi Mask 5.0 06/27/17 16:45 98.2 83 20 102/61 Nasal Cannula 3.0 98.2 06/27/17 16:08 98.2 77 20 113/64 95 98.2 Intake and Output 06/27/17 06/28/17 19:00 07:00 Intake Total 560 ml 338.8 ml Output Total 3000 ml Balance -2440 ml 338.8 ml Intake Oral 360 ml 60 ml IV Total 200 ml 278.8 ml Hemodialysis UF 3000 ml # Bowel Movements 1 Laboratory Tests 06/28/17 06:00: White Blood Count 6.4, Red Blood Count 2.59L, Hemoglobin 8.0L, Hematocrit 25.4L , Mean Corpuscular Volume 98, Mean Corpuscular Hemoglobin 30.8, Mean Corpuscular Hemoglobin Concent 31.4L, Red Cell Distribution Width 17.8H, Platelet Count 111L, Mean Platelet Volume 7.2, Neutrophils (%) (Auto) , Lymphocytes (%) (Auto) , Monocytes (%) (Auto) , Eosinophils (%) (Auto) , Basophils (%) (Auto) , Differential Total Cells Counted 100, Neutrophils % ( Manual) 55, Lymphocytes % (Manual) 22, Monocytes % (Manual) 20H, Eosinophils % ( Manual) 3, Basophils % (Manual) 0, Band Neutrophils 0, Platelet Estimate DecreasedL, Platelet Morphology Normal, Hypochromasia 1+, Anisocytosis 1+, Microcytosis 1+, Sodium Level 143, Potassium Level 3.9, Chloride Level 99, Carbon Dioxide Level 36H, Anion Gap 8, Blood Urea Nitrogen 31H, Creatinine 9.2H , Estimat Glomerular Filtration Rate 7.2, Glucose Level 75, Calcium Level 8.8, Total Bilirubin 0.8, Aspartate Amino Transf (AST/SGOT) 22, Alanine Aminotransferase (ALT/SGPT) 20, Alkaline Phosphatase 150H, Total Protein 7.1, Albumin 2.5L, Globulin 4.6, Albumin/Globulin Ratio 0.5L Height (Feet): 5 Height (Inches): 7.00 Weight (Pounds): 234 General Appearance: no apparent distress Respiratory/Chest: decreased breath sounds Abdomen: distended Objective no change LIAM MONTELONGO Jun 28, 2017 16:03
[2017-06-28] MEDS ORDERED: Tubing IV Secondary IV ONE (17:32)
--- NOTE | 2017-06-28 19:34 | General Progress Note ---
Assessment/Plan Assessment/Plan Assessment - Anemia, multifactorial - OB (+) Stool - w/u deferred due to respiratory status - ESRD/HD - DM - HTN - COPD - gallstones - RUQ TTP and improving LFT - abnormal GB ultrasound - cirrhotic appearing liver on CT - Hepatitis C (+) Recommendations - PO as tolerated - monitor LFT - transfuse PRN - Acid blockade - Defer EGD/Colon a this time - patient understands he has to arrange Subjective Allergies: Coded Allergies: IODINE AND IODIDE CONTAINING PRODUC (Verified Allergy, Mild, itching and pruritis, 06/25/17) Uncoded Allergies: CONTRAST/DYE (Allergy, Intermediate, PRURITIS AND ITCHING, 06/25/17) Subjective above noted no events overnight weak, but trying to walk Objective Last 24 Hour Vital Signs Date Time Temp Pulse Resp B/P (MAP) Pulse Ox O2 Delivery O2 Flow Rate FiO2 06/28/17 18:58 97.7 06/28/17 18:28 97.7 06/28/17 18:28 131/84 06/28/17 15:55 97.7 99 19 131/84 97 97.7 06/28/17 13:05 98.2 06/28/17 12:05 122/71 06/28/17 11:58 98.2 94 19 122/71 95 98.2 06/28/17 09:43 98.2 06/28/17 09:34 112/61 06/28/17 09:34 86 112/61 06/28/17 09:13 98.2 06/28/17 08:01 98.2 86 19 112/61 97 98.2 06/28/17 08:00 Nasal Cannula 4.0 36 06/28/17 08:00 94 Nasal Cannula 4.0 36 06/28/17 08:00 75 18 Nasal Cannula 4.0 06/28/17 05:19 98.8 06/28/17 04:02 98.8 81 20 107/66 94 Nasal Cannula 98.8 06/28/17 01:24 95 06/28/17 01:10 97.7 06/28/17 00:06 97.7 79 20 109/61 94 Nasal Cannula 97.7 06/27/17 23:43 98.0 06/27/17 23:32 82 26 95 Facial 35 06/27/17 22:44 98.0 06/27/17 22:35 94 06/27/17 20:47 98.0 06/27/17 20:46 75 144/80 06/27/17 20:15 Nasal Cannula 4.0 06/27/17 20:06 98.0 75 20 144/80 98 Nasal Cannula 98.0 06/27/17 19:35 80 18 Nasal Cannula 4.0 06/27/17 19:35 93 Nasal Cannula 4.0 36 06/27/17 19:35 Nasal Cannula 4.0 36 Intake and Output 06/27/17 06/28/17 19:00 07:00 Intake Total 560 ml 338.8 ml Output Total 3000 ml Balance -2440 ml 338.8 ml Intake Oral 360 ml 60 ml IV Total 200 ml 278.8 ml Hemodialysis UF 3000 ml # Bowel Movements 1 Laboratory Tests 06/28/17 06:00: White Blood Count 6.4, Red Blood Count 2.59L, Hemoglobin 8.0L, Hematocrit 25.4L , Mean Corpuscular Volume 98, Mean Corpuscular Hemoglobin 30.8, Mean Corpuscular Hemoglobin Concent 31.4L, Red Cell Distribution Width 17.8H, Platelet Count 111L, Mean Platelet Volume 7.2, Neutrophils (%) (Auto) , Lymphocytes (%) (Auto) , Monocytes (%) (Auto) , Eosinophils (%) (Auto) , Basophils (%) (Auto) , Differential Total Cells Counted 100, Neutrophils % ( Manual) 55, Lymphocytes % (Manual) 22, Monocytes % (Manual) 20H, Eosinophils % ( Manual) 3, Basophils % (Manual) 0, Band Neutrophils 0, Platelet Estimate DecreasedL, Platelet Morphology Normal, Hypochromasia 1+, Anisocytosis 1+, Microcytosis 1+, Sodium Level 143, Potassium Level 3.9, Chloride Level 99, Carbon Dioxide Level 36H, Anion Gap 8, Blood Urea Nitrogen 31H, Creatinine 9.2H , Estimat Glomerular Filtration Rate 7.2, Glucose Level 75, Calcium Level 8.8, Total Bilirubin 0.8, Aspartate Amino Transf (AST/SGOT) 22, Alanine Aminotransferase (ALT/SGPT) 20, Alkaline Phosphatase 150H, Total Protein 7.1, Albumin 2.5L, Globulin 4.6, Albumin/Globulin Ratio 0.5L Height (Feet): 5 Height (Inches): 7.00 Weight (Pounds): 234 Objective WDWN AA Man NCAT supple CTA RRR Soft mildly distended, (+) improved RUQ TTP No edema PERCY JOYNER Jun 28, 2017 19:34
[2017-06-28 19:56] VITALS: BP 102/63
[2017-06-28] MEDS: Micafungin 100 MG in NS 110 ML IVPB SCH (20:11)
[2017-06-28] MEDS: Dyna-Hex 2% Top Sol 2oz TOPIC SCH (20:12)
--- NOTE | 2017-06-28 22:54 | General Progress Note ---
Assessment/Plan Assessment/Plan #. Anemia secondary to chronic disease. --> Hemoglobin levels improved from yesterday. --> S/P abd CAT scan revealing evidence of hepatic cirrhosis. --> Hepatosplenomegaly. Ascites. There is also evidence of generalized anasarca , with pleural fluid and generalized subcutaneous edema --> Continue to closely monitor and trend cbc daily. --> Anemia workup completed and reviewed. Iron 42, TIBC 180, Ferritin 593, B12 876. --> Ferritin is >500, hgb goal is >7 --> Anemia w/u has been reviewed --> ++Occult blood. Consider GI Services and Recs. --> Abd pain improved on pain management #. Anemia of kidney disease --> HD as needed per nephrology team --> Monitor closely. #. Generalized body ache related to fluid overload. #. End-stage renal disease, on hemodialysis as needed --> Monitor. S/P HD. #. Tachycardia, to be seen by Cardiology Service, isolated T-wave and ST- segment depression in V6. --> HR has been ~80-90bpm --> S/P Chest CT -- Evidence of worsening CHF/interstitial edema. --> Monitor for improvement. #. Elevated BNP, potentially related to underlying CKD. #. Cardiomegaly. S/P Chest Xray --> Persistent but slightly decreased size of known right lung cavitary lesion. --> Persistent extensive interstitial and bilateral airspace opacities. --> Improved. Subjective Date patient seen: Jun 28, 2017 Constitutional: Denies: no symptoms, chills, diaphoresis, fever, malaise, weakness, other HEENT: Denies: no symptoms, eye pain, blurred vision, tearing, double vision, ear pain, ear discharge, nose pain, nose congestion, throat pain, throat swelling, mouth pain, mouth swelling, other Cardiovascular: Denies: no symptoms, chest pain, edema, irregular heart rate, lightheadedness, palpitations, syncope, other Respiratory: Denies: no symptoms, cough, orthopnea, shortness of breath, SOB with excertion, SOB at rest, sputum, stridor, wheezing, other Gastrointestinal/Abdominal: Denies: no symptoms, abdomen distended, abdominal pain, black stools, tarry stools, blood in stool, constipated, diarrhea, difficulty swallowing, nausea, poor appetite, poor fluid intake, rectal bleeding , vomiting, other Genitourinary: Denies: no symptoms, burning, discharge, frequency, flank pain, hematuria, incontinence, pain, urgency, other Neurologic/Psychiatric: Denies: no symptoms, anxiety, depressed, emotional problems, headache, numbness, paresthesia, pre-existing deficit, seizure, tingling, tremors, weakness, other Hematologic/Lymphatic: Reports: anemia Allergies: Coded Allergies: IODINE AND IODIDE CONTAINING PRODUC (Verified Allergy, Mild, itching and pruritis, 06/25/17) Uncoded Allergies: CONTRAST/DYE (Allergy, Intermediate, PRURITIS AND ITCHING, 06/25/17) Subjective No new events overnight. Hemoglobin improved. Afebrile. Objective Last 24 Hour Vital Signs Date Time Temp Pulse Resp B/P (MAP) Pulse Ox O2 Delivery O2 Flow Rate FiO2 06/28/17 21:21 78 18 Nasal Cannula 4.0 06/28/17 21:21 Nasal Cannula 4.0 36 06/28/17 21:21 92 Nasal Cannula 4.0 36 06/28/17 21:13 97.3 06/28/17 20:13 91 102/63 06/28/17 20:13 97.3 06/28/17 20:00 90 Nasal Cannula 4.0 06/28/17 19:56 97.3 91 21 102/63 90 Nasal Cannula 4.0 97.3 06/28/17 18:58 97.7 06/28/17 18:28 97.7 06/28/17 18:28 131/84 06/28/17 15:55 97.7 99 19 131/84 97 97.7 06/28/17 13:05 98.2 06/28/17 12:05 122/71 06/28/17 11:58 98.2 94 19 122/71 95 98.2 06/28/17 09:43 98.2 06/28/17 09:34 112/61 06/28/17 09:34 86 112/61 06/28/17 09:13 98.2 06/28/17 08:01 98.2 86 19 112/61 97 98.2 06/28/17 08:00 Nasal Cannula 4.0 36 06/28/17 08:00 94 Nasal Cannula 4.0 36 06/28/17 08:00 75 18 Nasal Cannula 4.0 06/28/17 05:19 98.8 06/28/17 04:02 98.8 81 20 107/66 94 Nasal Cannula 98.8 06/28/17 01:24 95 06/28/17 01:10 97.7 06/28/17 00:06 97.7 79 20 109/61 94 Nasal Cannula 97.7 06/27/17 23:32 82 26 95 Facial 35 Intake and Output 06/27/17 06/28/17 19:00 07:00 Intake Total 560 ml 338.8 ml Output Total 3000 ml Balance -2440 ml 338.8 ml Intake Oral 360 ml 60 ml IV Total 200 ml 278.8 ml Hemodialysis UF 3000 ml # Bowel Movements 1 Laboratory Tests 06/28/17 06:00: White Blood Count 6.4, Red Blood Count 2.59L, Hemoglobin 8.0L, Hematocrit 25.4L , Mean Corpuscular Volume 98, Mean Corpuscular Hemoglobin 30.8, Mean Corpuscular Hemoglobin Concent 31.4L, Red Cell Distribution Width 17.8H, Platelet Count 111L, Mean Platelet Volume 7.2, Neutrophils (%) (Auto) , Lymphocytes (%) (Auto) , Monocytes (%) (Auto) , Eosinophils (%) (Auto) , Basophils (%) (Auto) , Differential Total Cells Counted 100, Neutrophils % ( Manual) 55, Lymphocytes % (Manual) 22, Monocytes % (Manual) 20H, Eosinophils % ( Manual) 3, Basophils % (Manual) 0, Band Neutrophils 0, Platelet Estimate DecreasedL, Platelet Morphology Normal, Hypochromasia 1+, Anisocytosis 1+, Microcytosis 1+, Sodium Level 143, Potassium Level 3.9, Chloride Level 99, Carbon Dioxide Level 36H, Anion Gap 8, Blood Urea Nitrogen 31H, Creatinine 9.2H , Estimat Glomerular Filtration Rate 7.2, Glucose Level 75, Calcium Level 8.8, Total Bilirubin 0.8, Aspartate Amino Transf (AST/SGOT) 22, Alanine Aminotransferase (ALT/SGPT) 20, Alkaline Phosphatase 150H, Total Protein 7.1, Albumin 2.5L, Globulin 4.6, Albumin/Globulin Ratio 0.5L Height (Feet): 5 Height (Inches): 7.00 Weight (Pounds): 234 General Appearance: no apparent distress Respiratory/Chest: decreased breath sounds Abdomen: soft Irving Parker MD Jun 28, 2017 22:54
[2017-06-29] VITALS (8 sets, daily range): BP systolic 111–143; BP diastolic 66–86
[2017-06-29] MEDS: metroNIDAZOLE 500mg tab ORAL SCH ×3 (05:20→22:05)
[2017-06-29 07:20] LABS: HEMATOCRIT 25.4 % (42.0-52.0); MEAN CORPUSCULAR VOLUME 98 FL (80-99); PLATELET COUNT 97 K/UL (150-450); RED BLOOD COUNT 2.59 M/UL (4.70-6.10); RED CELL DISTRIBUTION WIDTH 18.3 % (11.6-14.8); WHITE BLOOD COUNT 7.7 K/UL (4.8-10.8)
[2017-06-29 08:29] LABS: ALANINE AMINOTRANSFERASE 29 U/L (12-78); ALBUMIN 2.6 G/DL (3.4-5.0); ALBUMIN/GLOBULIN RATIO 0.6 (1.0-2.7); ALKALINE PHOSPHATASE 158 U/L (46-116); ANION GAP 11 mmol/L (5-15); ASPARTATE AMINO TRANSFERASE 71 U/L (15-37); BILIRUBIN,TOTAL 1.1 MG/DL (0.2-1.0); BLOOD UREA NITROGEN 44 mg/dL (7-18); CALCIUM 8.7 MG/DL (8.5-10.1); CARBON DIOXIDE 32 MMOL/L (21-32); CHLORIDE 99 MMOL/L (98-107); CREATININE 10.9 MG/DL (0.55-1.30); POTASSIUM 4.2 MMOL/L (3.5-5.1); SODIUM 142 MMOL/L (136-145)
[2017-06-29 08:30] LABS: BILIRUBIN,DIRECT 0.6 MG/DL (0.0-0.3)
[2017-06-29] MEDS: Docusate 100mg cap ORAL SCH ×3 (09:14→17:48)
[2017-06-29] MEDS: Lisinopril 20mg tab ORAL SCH ×2 (09:16→17:48)
[2017-06-29] MEDS: Carvedilol 25mg Tab ORAL SCH ×2 (09:17→20:34)
--- NOTE | 2017-06-29 09:17 | Nephrology Progress Note ---
Assessment/Plan Problem List: (1) ESRD (end stage renal disease) on dialysis (2) Shortness of breath (3) Anemia Assessment worsenning Anemia ESRD , missed HD , admitted with high K and pulmonary edema Acute respiratory distress due to volume overload elevated troponin r/o ACS h/o COPD ? exacerbation HTN urgency Cardiomyopathy L AICD anemia of chronic kidney disease Hx of CVA Plan Plan: Low H&H - consider transfusion HD next 06/30 Transfused Phos binders BP meds adjustment Optimize cardiac status per orders Subjective ROS Limited/Unobtainable: No Constitutional: Reports: malaise Objective Objective Last 24 Hour Vital Signs Date Time Temp Pulse Resp B/P (MAP) Pulse Ox O2 Delivery O2 Flow Rate FiO2 06/29/17 08:00 98.2 76 19 143/85 93 98.2 06/29/17 07:45 96 Nasal Cannula 5.0 40 06/29/17 07:45 74 18 Nasal Cannula 5.0 06/29/17 07:45 Nasal Cannula 5.0 40 06/29/17 07:30 97.2 06/29/17 07:00 97.2 06/29/17 04:00 91 Nasal Cannula 5.0 06/29/17 04:00 97.2 78 20 132/81 91 Nasal Cannula 5.0 97.2 06/29/17 03:00 94 06/29/17 02:52 97.5 06/29/17 01:13 93 Nasal Cannula 5.0 06/29/17 01:13 97.5 78 20 143/86 93 Nasal Cannula 5.0 97.5 06/29/17 01:03 78 18 100 Facial 30 06/29/17 00:00 97.5 78 20 143/ 93 Nasal Cannula 5.0 86 97.5 06/28/17 23:20 97.3 06/28/17 23:08 77 18 100 Facial 30 06/28/17 21:21 78 18 Nasal Cannula 4.0 06/28/17 21:21 Nasal Cannula 4.0 36 06/28/17 21:21 92 Nasal Cannula 4.0 36 06/28/17 21:13 97.3 06/28/17 20:13 91 102/63 06/28/17 20:13 97.3 06/28/17 20:00 90 Nasal Cannula 4.0 06/28/17 19:56 97.3 91 21 102/63 90 Nasal Cannula 4.0 97.3 06/28/17 18:28 97.7 06/28/17 18:28 131/84 06/28/17 15:55 97.7 99 19 131/84 97 97.7 06/28/17 13:05 98.2 06/28/17 12:05 122/71 06/28/17 11:58 98.2 94 19 122/71 95 98.2 06/28/17 09:34 112/61 06/28/17 09:34 86 112/61 Intake and Output 06/28/17 06/29/17 19:00 07:00 Intake Total 360 ml 110 ml Balance 360 ml 110 ml Intake Oral 360 ml IV Total 110 ml # Voids 3 # Bowel Movements 2 Laboratory Tests 06/29/17 05:00: White Blood Count 7.7, Red Blood Count 2.59L, Hemoglobin 8.0L, Hematocrit 25.4L , Mean Corpuscular Volume 98, Mean Corpuscular Hemoglobin 30.9, Mean Corpuscular Hemoglobin Concent 31.5L, Red Cell Distribution Width 18.3H, Platelet Count 97L, Mean Platelet Volume 6.5, Neutrophils (%) (Auto) , Lymphocytes (%) (Auto) , Monocytes (%) (Auto) , Eosinophils (%) (Auto) , Basophils (%) (Auto) , Differential Total Cells Counted 100, Neutrophils % ( Manual) 53, Lymphocytes % (Manual) 26, Monocytes % (Manual) 19H, Eosinophils % ( Manual) 1, Basophils % (Manual) 1, Band Neutrophils 0, Platelet Estimate DecreasedL, Platelet Morphology Normal, Polychromasia 1+, Hypochromasia 1+, Anisocytosis 1+, Sodium Level 142, Potassium Level 4.2, Chloride Level 99, Carbon Dioxide Level 32, Anion Gap 11, Blood Urea Nitrogen 44H, Creatinine 10.9H , Estimat Glomerular Filtration Rate 5.9, Glucose Level 114H, Calcium Level 8.7 , Total Bilirubin 1.1H, Direct Bilirubin 0.6H, Aspartate Amino Transf (AST/SGOT ) 71H, Alanine Aminotransferase (ALT/SGPT) 29, Alkaline Phosphatase 158H, Total Protein 7.1, Albumin 2.6L, Globulin 4.5, Albumin/Globulin Ratio 0.6L Height (Feet): 5 Height (Inches): 7.00 Weight (Pounds): 231 General Appearance: no apparent distress Objective no change LIAM MONTELONGO Jun 29, 2017 09:17
[2017-06-29] MEDS ORDERED: D5NS 1000ml IV ONE (10:37)
--- NOTE | 2017-06-29 10:48 | Pulmonology Progress Note ---
Assessment/Plan Assessment/Plan ASSESSMENT R upper lobe cavitary mass Necrotizing PNA with cavitating lesion RUL r/o TB Acute hypoxemic RF requiring BiPAP -resolved Pleuritic chest pain likely due to necrotizing PNA . Elevated troponin Systolic CHF ( recent negative reversible perfusion defect.) cardiomyopathy pulmonary edema Asthma. End-stage renal disease, on hemodialysis. Hypertensive urgency . Anemia of chronic disease. History of intracardiac defibrillator placement. Prior history of cerebrovascular accident. ESRD on HD thrombocytopenia transaminitis hepatitis C liver cirrhosis cholelithiasis PLAN OF CARE MS resp isolation CT chest 06/26 -Further reduction in size of previously demonstrated thick walled right upper lobe cavitary mass. Currently measures 6 cm AP by 5.2 cm transverse by 3.9 cm craniocaudad, previously approximately 7.8 x 4.9 x 5.2 cm. This was previously thought to most likely represent a cavitary inflammatory mass, and the interim reduction in size certainly supports that. Much less likely a cavitary neoplasm CT chest 06/15- Slightly smaller but mostly unchanged cavitary lesion in the right lung, previously thought to represent a cavitating inflammatory process. Lung abscess is certainly a possibility initial CT chest with evidence of necrotizing PNA with cavitary lesion - 7.8 x 5.3 x 6.6 cm dense opacity in the posterior inferior right upper lobe with a central cavitation. T-SPOT-Neg ; sputum AFB x 3- Neg MTB by PCR x2 -neg cryptococcus Ag, Histo Ab , Blasto ab-all neg ; Cocci, Asp ag pending sputum cx + Providencia/Pseudomonas Ethambutol , Levaquin and Rifaximin, monitor LFT-down to normal, Flagyl added by ID for anaerobic coverage fup with fungal serology and AFB culture Micafungin to cover for possible Aspergilloses O2 titrate, pulm toilet BiPAP at HS and prn HIV negative blood cx negative, influenza screen negative a/tussive prn cardio follows BP management with BB CCB and [facility] medical management for SHF nephro follows HD as per nephro monitor renal parameters, lytes, avoid nephrotoxic heme follows transfuse prn with goal to keep Hgb above 7 anemia w/up c/w anemia of chronic disease and multifactorial as per GI stool OB+ x1 monitor PLT count- better off Heparin SCD Venous Duplex BLE- negative GI follows hep panel + hep C, no viral load , thus no active infection cirrhosis likely 2 to hep C abd US + cholelithiasis, HSM, surgeon consulted CT A/P with hepatic cirrhosis, HSM, anasarca and cholelithiasis, no evidence of acute cholecystis, no surgical intervention necessary per GI defer EGD/colon for now cont resp isolation disposition after [facility] clearance case discussed and evaluated by supervising physician Subjective Allergies: Coded Allergies: IODINE AND IODIDE CONTAINING PRODUC (Verified Allergy, Mild, itching and pruritis, 06/25/17) Uncoded Allergies: CONTRAST/DYE (Allergy, Intermediate, PRURITIS AND ITCHING, 06/25/17) Subjective on resp isolation for possible TB no SOB no CP sitting in the chair on O2 via NC afebrile, no leukocytosis Objective Last 24 Hour Vital Signs Date Time Temp Pulse Resp B/P (MAP) Pulse Ox O2 Delivery O2 Flow Rate FiO2 06/29/17 09:17 76 143/85 06/29/17 09:16 143/85 06/29/17 08:00 98.2 76 19 143/85 93 98.2 06/29/17 07:45 96 Nasal Cannula 5.0 40 06/29/17 07:45 74 18 Nasal Cannula 5.0 06/29/17 07:45 Nasal Cannula 5.0 40 06/29/17 07:30 97.2 06/29/17 07:00 97.2 06/29/17 04:00 91 Nasal Cannula 5.0 06/29/17 04:00 97.2 78 20 132/81 91 Nasal Cannula 5.0 97.2 06/29/17 03:00 94 06/29/17 02:52 97.5 06/29/17 01:13 93 Nasal Cannula 5.0 06/29/17 01:13 97.5 78 20 143/86 93 Nasal Cannula 5.0 97.5 06/29/17 01:03 78 18 100 Facial 30 06/29/17 00:00 97.5 78 20 143/ 93 Nasal Cannula 5.0 86 97.5 06/28/17 23:20 97.3 06/28/17 23:08 77 18 100 Facial 30 06/28/17 21:21 78 18 Nasal Cannula 4.0 06/28/17 21:21 Nasal Cannula 4.0 36 06/28/17 21:21 92 Nasal Cannula 4.0 36 06/28/17 21:13 97.3 06/28/17 20:13 91 102/63 06/28/17 20:13 97.3 06/28/17 20:00 90 Nasal Cannula 4.0 06/28/17 19:56 97.3 91 21 102/63 90 Nasal Cannula 4.0 97.3 06/28/17 18:28 97.7 06/28/17 18:28 131/84 06/28/17 15:55 97.7 99 19 131/84 97 97.7 06/28/17 13:05 98.2 06/28/17 12:05 122/71 06/28/17 11:58 98.2 94 19 122/71 95 98.2 Intake and Output 06/28/17 06/29/17 19:00 07:00 Intake Total 360 ml 110 ml Balance 360 ml 110 ml Intake Oral 360 ml IV Total 110 ml # Voids 3 # Bowel Movements 2 Objective General Appearance: no acute distress, obese, awake, alert, oriented x4 AA male , HEENT: normocephalic, atraumatic, anicteric Respiratory/Chest: decreased breath sounds, ICD LT chest Cardiovascular: normal rate, LUE AV shunt + bruit/thrill, L neck IJ CL intact Abdomen: normal bowel sounds, soft, non tender, obese Extremities: +1 edema BLE Neurologic/Psychiatric: alert, responsive Musculoskeletal: normal muscle bulk Laboratory Tests 06/29/17 05:00: White Blood Count 7.7, Red Blood Count 2.59L, Hemoglobin 8.0L, Hematocrit 25.4L , Mean Corpuscular Volume 98, Mean Corpuscular Hemoglobin 30.9, Mean Corpuscular Hemoglobin Concent 31.5L, Red Cell Distribution Width 18.3H, Platelet Count 97L, Mean Platelet Volume 6.5, Neutrophils (%) (Auto) , Lymphocytes (%) (Auto) , Monocytes (%) (Auto) , Eosinophils (%) (Auto) , Basophils (%) (Auto) , Differential Total Cells Counted 100, Neutrophils % ( Manual) 53, Lymphocytes % (Manual) 26, Monocytes % (Manual) 19H, Eosinophils % ( Manual) 1, Basophils % (Manual) 1, Band Neutrophils 0, Platelet Estimate DecreasedL, Platelet Morphology Normal, Polychromasia 1+, Hypochromasia 1+, Anisocytosis 1+, Sodium Level 142, Potassium Level 4.2, Chloride Level 99, Carbon Dioxide Level 32, Anion Gap 11, Blood Urea Nitrogen 44H, Creatinine 10.9H , Estimat Glomerular Filtration Rate 5.9, Glucose Level 114H, Calcium Level 8.7 , Total Bilirubin 1.1H, Direct Bilirubin 0.6H, Aspartate Amino Transf (AST/SGOT ) 71H, Alanine Aminotransferase (ALT/SGPT) 29, Alkaline Phosphatase 158H, Total Protein 7.1, Albumin 2.6L, Globulin 4.5, Albumin/Globulin Ratio 0.6L Current Medications Medications (Trade) Dose Ordered Sig/Jose Route PRN Reason Start Time Stop Time Status Last Admin Dose Admin Acetaminophen (Tylenol) 650 mg Q4H PRN RECTAL Mild Pain (Pain Scale 1-3) 06/16/17 19:00 07/09/17 18:59 Albuterol/ Ipratropium (Albuterol/ Ipratropium) 3 ml Q4HRT PRN HHN sob 06/27/17 13:15 07/02/17 13:14 Alprazolam (Xanax) 2 mg DAILYPRN PRN ORAL For Anxiety 06/24/17 17:00 07/01/17 16:59 06/28/17 15:22 Carisoprodol (Soma) 350 mg Q6H PRN ORAL MUSCLE SPASMS 06/16/17 19:00 07/14/17 18:59 06/28/17 20:13 Carvedilol (Coreg) 25 mg EVERY 12 HOURS ORAL 06/16/17 21:00 07/04/17 11:29 06/29/17 09:17 Chlorhexidine Gluconate (Mireille-Hex 2%) 1 applic DAILY@2000 TOPIC 06/16/17 20:00 07/05/17 19:59 06/28/17 20:12 Clonidine HCl (Catapres Tab) 0.1 mg Q4H PRN ORAL bp over 160 syst 06/16/17 19:00 07/03/17 18:59 Dextrose (Dextrose 50%) STAT PRN IV Hypoglycemia 06/16/17 19:00 07/14/17 18:59 Docusate Sodium (Colace) 100 mg THREE TIMES A DAY ORAL 06/17/17 20:00 07/03/17 19:59 06/29/17 09:14 Ethambutol HCl (Myambutol) 1,000 mg 3XW ORAL 06/18/17 09:00 07/18/17 23:59 06/27/17 09:19 Hydromorphone HCl (Dilaudid) 1 mg Q4H PRN IVP Moderate Pain (Pain Scale 4-6) 06/27/17 18:00 07/04/17 17:59 06/28/17 22:50 Hydromorphone HCl (Dilaudid) 2 mg Q4H PRN IVP Severe Pain (Pain Scale 7-10) 06/27/17 21:00 07/04/17 20:59 06/29/17 07:00 Levofloxacin (Levaquin) 750 mg EVERY OTHER DAY@1999 ORAL 06/17/17 20:00 06/30/17 19:59 06/27/17 20:46 Lisinopril (Prinivil) 20 mg BID ORAL 06/17/17 09:00 07/04/17 08:59 06/29/17 09:16 Metronidazole (Flagyl) 500 mg Q8HR ORAL 06/17/17 22:00 06/30/17 21:59 06/29/17 05:20 Micafungin Sodium 100 mg/Sodium Chloride 110 ml @ 110 mls/hr Q24H IVPB 06/25/17 20:00 07/02/17 23:59 06/28/17 20:11 Nitroglycerin (Ntg) 0.4 mg Q5M PRN SL Prn Chest Pain 06/16/17 18:15 07/04/17 09:14 Nitroglycerin (Ntg) 1 patch Q24H TDERMAL 06/17/17 11:30 07/04/17 11:29 06/28/17 12:05 Ondansetron HCl (Zofran) 4 mg Q6H PRN IVP Nausea & Vomiting 06/16/17 18:30 07/14/17 18:29 06/28/17 05:19 Pantoprazole (Protonix) 40 mg ACBREAKFAST ORAL 06/17/17 06:30 07/15/17 06:29 06/29/17 05:19 Polyethylene Glycol (Miralax) 17 gm DAILYPRN PRN ORAL Constipation 06/16/17 18:30 07/14/17 18:29 Promethazine HCl/ Codeine (Phenergan with Codeine) 5 ml Q4H PRN ORAL For Cough 06/16/17 18:30 07/05/17 18:29 06/27/17 22:44 Rifampin (Rifadin) 600 mg DAILY ORAL 06/25/17 17:00 07/25/17 16:59 06/29/17 09:14 Sevelamer Carbonate (Renvela) 2,400 mg THREE TIMES A DAY ORAL 06/16/17 18:45 07/16/17 18:44 06/29/17 09:15 Rohan ([facility])Mariela NP Jun 29, 2017 10:48
[2017-06-29] MEDS ORDERED: Tubing IV Secondary IV ONE (10:54)
[2017-06-29] MEDS: Nitroglycerin Patch 0.4mg TDERMAL SCH (11:56)
[2017-06-29] MEDS: HYDROmorphone 1mg/ml Carpuject IVP PRN ×2 (11:57→17:49)
[2017-06-29] MEDS: ALPRAZolam 0.5mg tab ORAL PRN (13:37)
--- NOTE | 2017-06-29 13:37 | Internal Med Progress Note ---
Subjective Date of Service: Jun 29, 2017 Physician Name Zoey Pires Attending Physician Chaitanya Weinstein MD Current Medications Medications (Trade) Dose Ordered Sig/Jose Route PRN Reason Start Time Stop Time Status Last Admin Dose Admin Acetaminophen (Tylenol) 650 mg Q4H PRN RECTAL Mild Pain (Pain Scale 1-3) 06/16/17 19:00 07/09/17 18:59 Albuterol/ Ipratropium (Albuterol/ Ipratropium) 3 ml Q4HRT PRN HHN sob 06/27/17 13:15 07/02/17 13:14 Alprazolam (Xanax) 2 mg DAILYPRN PRN ORAL For Anxiety 06/24/17 17:00 07/01/17 16:59 06/28/17 15:22 Carisoprodol (Soma) 350 mg Q6H PRN ORAL MUSCLE SPASMS 06/16/17 19:00 07/14/17 18:59 06/28/17 20:13 Carvedilol (Coreg) 25 mg EVERY 12 HOURS ORAL 06/16/17 21:00 07/04/17 11:29 06/29/17 09:17 Chlorhexidine Gluconate (Mireille-Hex 2%) 1 applic DAILY@2000 TOPIC 06/16/17 20:00 07/05/17 19:59 06/28/17 20:12 Clonidine HCl (Catapres Tab) 0.1 mg Q4H PRN ORAL bp over 160 syst 06/16/17 19:00 07/03/17 18:59 Dextrose (Dextrose 50%) STAT PRN IV Hypoglycemia 06/16/17 19:00 07/14/17 18:59 Docusate Sodium (Colace) 100 mg THREE TIMES A DAY ORAL 06/17/17 20:00 07/03/17 19:59 06/29/17 11:56 Ethambutol HCl (Myambutol) 1,000 mg 3XW ORAL 06/18/17 09:00 07/18/17 23:59 06/27/17 09:19 Hydromorphone HCl (Dilaudid) 1 mg Q4H PRN IVP Moderate Pain (Pain Scale 4-6) 06/27/17 18:00 07/04/17 17:59 06/29/17 11:57 Hydromorphone HCl (Dilaudid) 2 mg Q4H PRN IVP Severe Pain (Pain Scale 7-10) 06/27/17 21:00 07/04/17 20:59 06/29/17 07:00 Levofloxacin (Levaquin) 750 mg EVERY OTHER DAY@2000 ORAL 06/17/17 20:00 06/30/17 19:59 06/27/17 20:46 Lisinopril (Prinivil) 20 mg BID ORAL 06/17/17 09:00 07/04/17 08:59 06/29/17 09:16 Metronidazole (Flagyl) 500 mg Q8HR ORAL 06/17/17 22:00 06/30/17 21:59 06/29/17 05:20 Micafungin Sodium 100 mg/Sodium Chloride 110 ml @ 110 mls/hr Q24H IVPB 06/25/17 20:00 07/02/17 23:59 06/28/17 20:11 Nitroglycerin (Ntg) 0.4 mg Q5M PRN SL Prn Chest Pain 06/16/17 18:15 07/04/17 09:14 Nitroglycerin (Ntg) 1 patch Q24H TDERMAL 06/17/17 11:30 07/04/17 11:29 06/29/17 11:56 Ondansetron HCl (Zofran) 4 mg Q6H PRN IVP Nausea & Vomiting 06/16/17 18:30 07/14/17 18:29 06/28/17 05:19 Pantoprazole (Protonix) 40 mg ACBREAKFAST ORAL 06/17/17 06:30 07/15/17 06:29 06/29/17 05:19 Polyethylene Glycol (Miralax) 17 gm DAILYPRN PRN ORAL Constipation 06/16/17 18:30 07/14/17 18:29 Promethazine HCl/ Codeine (Phenergan with Codeine) 5 ml Q4H PRN ORAL For Cough 06/16/17 18:30 07/05/17 18:29 06/27/17 22:44 Rifampin (Rifadin) 600 mg DAILY ORAL 06/25/17 17:00 07/25/17 16:59 06/29/17 09:14 Sevelamer Carbonate (Renvela) 2,400 mg THREE TIMES A DAY ORAL 06/16/17 18:45 07/16/17 18:44 06/29/17 11:57 Allergies: Coded Allergies: IODINE AND IODIDE CONTAINING PRODUC (Verified Allergy, Mild, itching and pruritis, 06/25/17) Uncoded Allergies: CONTRAST/DYE (Allergy, Intermediate, PRURITIS AND ITCHING, 06/25/17) ROS Limited/Unobtainable: No Constitutional: Reports: no symptoms HEENT: Reports: no symptoms Cardiovascular: Reports: no symptoms Respiratory: Reports: shortness of breath Gastrointestinal/Abdominal: Reports: no symptoms Genitourinary: Reports: no symptoms Neurologic/Psychiatric: Reports: no symptoms Subjective 57 YO M admitted with chest pain and shortness of breath. Now pneumonia and candelaria heart failure. Back on nasal canula. Cover for Int Misbah-Dr Weinstein. Hemodialysis today 06/25 Objective Last Vital Signs Date Time Temp Pulse Resp B/P (MAP) Pulse Ox O2 Delivery O2 Flow Rate FiO2 06/29/17 12:27 98.4 06/29/17 11:59 77 19 141/86 95 06/29/17 07:45 Nasal Cannula 5.0 40 Laboratory Tests Test 06/29/17 05:00 White Blood Count 7.7 K/UL (4.8-10.8) Red Blood Count 2.59 M/UL (4.70-6.10) L Hemoglobin 8.0 G/DL (14.2-18.0) L Hematocrit 25.4 % (42.0-52.0) L Mean Corpuscular Volume 98 FL (80-99) Mean Corpuscular Hemoglobin 30.9 PG (27.0-31.0) Mean Corpuscular Hemoglobin Concent 31.5 G/DL (32.0-36.0) L Red Cell Distribution Width 18.3 % (11.6-14.8) H Platelet Count 97 K/UL (150-450) L Mean Platelet Volume 6.5 FL (6.5-10.1) Neutrophils (%) (Auto) % (45.0-75.0) Lymphocytes (%) (Auto) % (20.0-45.0) Monocytes (%) (Auto) % (1.0-10.0) Eosinophils (%) (Auto) % (0.0-3.0) Basophils (%) (Auto) % (0.0-2.0) Differential Total Cells Counted 100 Neutrophils % (Manual) 53 % (45-75) Lymphocytes % (Manual) 26 % (20-45) Monocytes % (Manual) 19 % (1-10) H Eosinophils % (Manual) 1 % (0-3) Basophils % (Manual) 1 % (0-2) Band Neutrophils 0 % (0-8) Platelet Estimate Decreased L Platelet Morphology Normal Polychromasia 1+ Hypochromasia 1+ Anisocytosis 1+ Sodium Level 142 MMOL/L (136-145) Potassium Level 4.2 MMOL/L (3.5-5.1) Chloride Level 99 MMOL/L (98-107) Carbon Dioxide Level 32 MMOL/L (21-32) Anion Gap 11 mmol/L (5-15) Blood Urea Nitrogen 44 mg/dL (7-18) H Creatinine 10.9 MG/DL (0.55-1.30) H Estimat Glomerular Filtration Rate 5.9 mL/min (>60) Glucose Level 114 MG/DL (74-106) H Calcium Level 8.7 MG/DL (8.5-10.1) Total Bilirubin 1.1 MG/DL (0.2-1.0) H Direct Bilirubin 0.6 MG/DL (0.0-0.3) H Aspartate Amino Transf (AST/SGOT) 71 U/L (15-37) H Alanine Aminotransferase (ALT/SGPT) 29 U/L (12-78) Alkaline Phosphatase 158 U/L (46-116) H Total Protein 7.1 G/DL (6.4-8.2) Albumin 2.6 G/DL (3.4-5.0) L Globulin 4.5 g/dL Albumin/Globulin Ratio 0.6 (1.0-2.7) L Intake and Output 06/28/17 06/29/17 19:00 07:00 Intake Total 360 ml 110 ml Balance 360 ml 110 ml Intake Oral 360 ml IV Total 110 ml # Voids 3 # Bowel Movements 2 Objective General Appearance: WD/WN, alert, moderate distress EENT: PERRL/EOMI, normal ENT inspection Neck: non-tender, normal alignment, supple, normal inspection Cardiovascular: normal peripheral pulses, normal rate, regular rhythm, no gallop/murmur, no JVD Respiratory/Chest: Nasal canula; respiratory distress, crackles/rales, rhonchi - bilaterally, expiratory wheezing Abdomen: normal bowel sounds, non tender, soft, no organomegaly, no mass Extremities: normal range of motion Neurologic: pecan mallow dipper 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 Currently on nasal canula. See pulmonay note. (2) Pleuritic chest pain (3) Hemoptysis Assessment & Plan: Due to pneumonia (4) Pneumonia Assessment & Plan: Providencia and pseudamonas. RUL and cavitary. Concerning for TB. Await AFB cultures-see ID consult. Continue vanco and ethambutol per ID. Continue rocephin, micafungin, flagyl, amikacin, levaquin, and rifampin (5) Shortness of breath (6) ESRD (end stage renal disease) on dialysis Assessment & Plan: See nephrology note. Hemodialysis 06/27/17 per nephrology (7) Hyperkalemia Assessment & Plan: Due to renal failure. Hemodialysis 06/12/17 per nephrology (8) COPD (chronic obstructive pulmonary disease) (9) HTN (hypertension) Assessment & Plan: Continue coreg and lisinopril. (10) CHF (congestive heart failure) (11) Elevated troponin Assessment & Plan: ?due to renal failure? See cardiology note. (12) Intractable abdominal pain Assessment & Plan: See surgery note. Await CT abdomen (13) Conjunctivitis Assessment & Plan: start tobramycin Status: stable ZOEY PIRES Jun 29, 2017 13:37
--- NOTE | 2017-06-29 18:15 | General Progress Note ---
Assessment/Plan Assessment/Plan Assessment - Anemia, multifactorial - OB (+) Stool - w/u deferred due to respiratory status - ESRD/HD - DM - HTN - COPD - gallstones - RUQ TTP and improving LFT - abnormal GB ultrasound - cirrhotic appearing liver on CT - Hepatitis C (+) - Poor prognosis Recommendations - PO as tolerated - monitor LFT - transfuse PRN - Acid blockade - Defer EGD/Colon a this time Subjective Allergies: Coded Allergies: IODINE AND IODIDE CONTAINING PRODUC (Verified Allergy, Mild, itching and pruritis, 06/25/17) Uncoded Allergies: CONTRAST/DYE (Allergy, Intermediate, PRURITIS AND ITCHING, 06/25/17) Subjective above noted no events overnight tolerating PO Objective Last 24 Hour Vital Signs Date Time Temp Pulse Resp B/P (MAP) Pulse Ox O2 Delivery O2 Flow Rate FiO2 06/29/17 17:49 98.6 06/29/17 17:48 140/78 06/29/17 16:00 98.6 71 19 140/78 95 98.6 06/29/17 12:27 98.4 06/29/17 11:59 98.4 77 19 141/86 95 98.4 06/29/17 11:57 98.2 06/29/17 11:56 143/85 06/29/17 09:17 76 143/85 06/29/17 09:16 143/85 06/29/17 08:00 98.2 76 19 143/85 93 98.2 06/29/17 07:45 96 Nasal Cannula 5.0 40 06/29/17 07:45 74 18 Nasal Cannula 5.0 06/29/17 07:45 Nasal Cannula 5.0 40 06/29/17 07:30 97.2 06/29/17 07:00 97.2 06/29/17 04:00 91 Nasal Cannula 5.0 06/29/17 04:00 97.2 78 20 132/81 91 Nasal Cannula 5.0 97.2 06/29/17 03:00 94 06/29/17 02:52 97.5 06/29/17 01:13 93 Nasal Cannula 5.0 06/29/17 01:13 97.5 78 20 143/86 93 Nasal Cannula 5.0 97.5 06/29/17 01:03 78 18 100 Facial 30 06/29/17 00:00 97.5 78 20 143/ 93 Nasal Cannula 5.0 86 97.5 06/28/17 23:08 77 18 100 Facial 30 06/28/17 21:21 78 18 Nasal Cannula 4.0 06/28/17 21:21 Nasal Cannula 4.0 36 06/28/17 21:21 92 Nasal Cannula 4.0 36 06/28/17 21:13 97.3 06/28/17 20:13 91 102/63 06/28/17 20:13 97.3 06/28/17 20:00 90 Nasal Cannula 4.0 06/28/17 19:56 97.3 91 21 102/63 90 Nasal Cannula 4.0 97.3 06/28/17 18:28 97.7 06/28/17 18:28 131/84 Intake and Output 06/28/17 06/29/17 19:00 07:00 Intake Total 360 ml 110 ml Balance 360 ml 110 ml Intake Oral 360 ml IV Total 110 ml # Voids 3 # Bowel Movements 2 Laboratory Tests 06/29/17 05:00: White Blood Count 7.7, Red Blood Count 2.59L, Hemoglobin 8.0L, Hematocrit 25.4L , Mean Corpuscular Volume 98, Mean Corpuscular Hemoglobin 30.9, Mean Corpuscular Hemoglobin Concent 31.5L, Red Cell Distribution Width 18.3H, Platelet Count 97L, Mean Platelet Volume 6.5, Neutrophils (%) (Auto) , Lymphocytes (%) (Auto) , Monocytes (%) (Auto) , Eosinophils (%) (Auto) , Basophils (%) (Auto) , Differential Total Cells Counted 100, Neutrophils % ( Manual) 53, Lymphocytes % (Manual) 26, Monocytes % (Manual) 19H, Eosinophils % ( Manual) 1, Basophils % (Manual) 1, Band Neutrophils 0, Platelet Estimate DecreasedL, Platelet Morphology Normal, Polychromasia 1+, Hypochromasia 1+, Anisocytosis 1+, Sodium Level 142, Potassium Level 4.2, Chloride Level 99, Carbon Dioxide Level 32, Anion Gap 11, Blood Urea Nitrogen 44H, Creatinine 10.9H , Estimat Glomerular Filtration Rate 5.9, Glucose Level 114H, Calcium Level 8.7 , Total Bilirubin 1.1H, Direct Bilirubin 0.6H, Aspartate Amino Transf (AST/SGOT ) 71H, Alanine Aminotransferase (ALT/SGPT) 29, Alkaline Phosphatase 158H, Total Protein 7.1, Albumin 2.6L, Globulin 4.5, Albumin/Globulin Ratio 0.6L Height (Feet): 5 Height (Inches): 7.00 Weight (Pounds): 231 Objective WDWN AA Man NCAT supple CTA RRR Soft mildly distended, (+) improved RUQ TTP No edema PERCY JOYNER Jun 29, 2017 18:14
[2017-06-29] MEDS ORDERED: Tubing Blood Filter IV ONE (18:40)
[2017-06-29] MEDS ORDERED: NS 275ml ONE (18:40)
[2017-06-29] MEDS: cefTRIAXone 2 GM in D5W 110 ML IVPB SCH (20:17)
[2017-06-29] MEDS: Micafungin 100 MG in NS 110 ML IVPB SCH (20:18)
[2017-06-29] MEDS: Dyna-Hex 2% Top Sol 2oz TOPIC SCH (20:29)
--- NOTE | 2017-06-29 23:14 | General Progress Note ---
Assessment/Plan Assessment/Plan #. Anemia secondary to chronic disease. --> Hemoglobin levels currently ~8, does not need transfusion at this time --> S/P abd CAT scan revealing evidence of hepatic cirrhosis. --> Hepatosplenomegaly. Ascites. There is also evidence of generalized anasarca , with pleural fluid and generalized subcutaneous edema --> Continue to closely monitor and trend cbc daily. --> Anemia workup completed and reviewed. Iron 42, TIBC 180, Ferritin 593, B12 876. --> Ferritin is >500, hgb goal is >7 --> Anemia w/u has been reviewed --> ++Occult blood. Consider GI Services and Recs. --> Abd pain improved on pain management #. Anemia of kidney disease --> HD as needed per nephrology team --> Monitor closely. #. Generalized body ache related to fluid overload. #. End-stage renal disease, on hemodialysis as needed --> Monitor. S/P HD. #. Tachycardia, to be seen by Cardiology Service, isolated T-wave and ST- segment depression in V6. --> HR has been ~80-90bpm --> S/P Chest CT -- Evidence of worsening CHF/interstitial edema. --> Monitor for improvement. #. Elevated BNP, potentially related to underlying CKD. #. Cardiomegaly. S/P Chest Xray --> Persistent but slightly decreased size of known right lung cavitary lesion. --> Persistent extensive interstitial and bilateral airspace opacities. --> Improved. Subjective Date patient seen: Jun 29, 2017 Constitutional: Denies: no symptoms, chills, diaphoresis, fever, malaise, weakness, other HEENT: Denies: no symptoms, eye pain, blurred vision, tearing, double vision, ear pain, ear discharge, nose pain, nose congestion, throat pain, throat swelling, mouth pain, mouth swelling, other Cardiovascular: Denies: no symptoms, chest pain, edema, irregular heart rate, lightheadedness, palpitations, syncope, other Respiratory: Denies: no symptoms, cough, orthopnea, shortness of breath, SOB with excertion, SOB at rest, sputum, stridor, wheezing, other Gastrointestinal/Abdominal: Denies: no symptoms, abdomen distended, abdominal pain, black stools, tarry stools, blood in stool, constipated, diarrhea, difficulty swallowing, nausea, poor appetite, poor fluid intake, rectal bleeding , vomiting, other Genitourinary: Denies: no symptoms, burning, discharge, frequency, flank pain, hematuria, incontinence, pain, urgency, other Neurologic/Psychiatric: Denies: no symptoms, anxiety, depressed, emotional problems, headache, numbness, paresthesia, pre-existing deficit, seizure, tingling, tremors, weakness, other Endocrine: Denies: no symptoms, excessive sweating, flushing, intolerance to cold, intolerance to heat, increased hunger, increased thirst, increased urine, unexplained weight gain, unexplained weight loss, other Allergies: Coded Allergies: IODINE AND IODIDE CONTAINING PRODUC (Verified Allergy, Mild, itching and pruritis, 06/25/17) Uncoded Allergies: CONTRAST/DYE (Allergy, Intermediate, PRURITIS AND ITCHING, 06/25/17) Subjective No new events overnight. No fever or chills. Objective Last 24 Hour Vital Signs Date Time Temp Pulse Resp B/P (MAP) Pulse Ox O2 Delivery O2 Flow Rate FiO2 06/29/17 22:36 97.9 06/29/17 22:00 94 06/29/17 21:33 97.9 06/29/17 20:45 73 18 Nasal Cannula 5.0 06/29/17 20:45 94 Nasal Cannula 5.0 40 06/29/17 20:45 Nasal Cannula 5.0 40 06/29/17 20:34 74 133/69 06/29/17 20:34 97.9 06/29/17 20:30 133/69 06/29/17 20:00 97.9 75 21 111/66 98 97.9 06/29/17 18:19 98.6 06/29/17 17:49 98.6 06/29/17 17:48 140/78 06/29/17 16:00 98.6 71 19 140/78 95 98.6 06/29/17 11:59 98.4 77 19 141/86 95 98.4 06/29/17 11:57 98.2 06/29/17 11:56 143/85 06/29/17 09:17 76 143/85 06/29/17 09:16 143/85 06/29/17 08:00 98.2 76 19 143/85 93 98.2 06/29/17 07:45 96 Nasal Cannula 5.0 40 06/29/17 07:45 74 18 Nasal Cannula 5.0 06/29/17 07:45 Nasal Cannula 5.0 40 06/29/17 07:00 97.2 06/29/17 04:00 91 Nasal Cannula 5.0 06/29/17 04:00 97.2 78 20 132/81 91 Nasal Cannula 5.0 97.2 06/29/17 03:00 94 06/29/17 02:52 97.5 06/29/17 01:13 93 Nasal Cannula 5.0 06/29/17 01:13 97.5 78 20 143/86 93 Nasal Cannula 5.0 97.5 06/29/17 01:03 78 18 100 Facial 30 06/29/17 00:00 97.5 78 20 143/ 93 Nasal Cannula 5.0 86 97.5 Intake and Output 06/28/17 06/29/17 19:00 07:00 Intake Total 360 ml 110 ml Balance 360 ml 110 ml Intake Oral 360 ml IV Total 110 ml # Voids 3 # Bowel Movements 2 Laboratory Tests 06/29/17 05:00: White Blood Count 7.7, Red Blood Count 2.59L, Hemoglobin 8.0L, Hematocrit 25.4L , Mean Corpuscular Volume 98, Mean Corpuscular Hemoglobin 30.9, Mean Corpuscular Hemoglobin Concent 31.5L, Red Cell Distribution Width 18.3H, Platelet Count 97L, Mean Platelet Volume 6.5, Neutrophils (%) (Auto) , Lymphocytes (%) (Auto) , Monocytes (%) (Auto) , Eosinophils (%) (Auto) , Basophils (%) (Auto) , Differential Total Cells Counted 100, Neutrophils % ( Manual) 53, Lymphocytes % (Manual) 26, Monocytes % (Manual) 19H, Eosinophils % ( Manual) 1, Basophils % (Manual) 1, Band Neutrophils 0, Platelet Estimate DecreasedL, Platelet Morphology Normal, Polychromasia 1+, Hypochromasia 1+, Anisocytosis 1+, Sodium Level 142, Potassium Level 4.2, Chloride Level 99, Carbon Dioxide Level 32, Anion Gap 11, Blood Urea Nitrogen 44H, Creatinine 10.9H , Estimat Glomerular Filtration Rate 5.9, Glucose Level 114H, Calcium Level 8.7 , Total Bilirubin 1.1H, Direct Bilirubin 0.6H, Aspartate Amino Transf (AST/SGOT ) 71H, Alanine Aminotransferase (ALT/SGPT) 29, Alkaline Phosphatase 158H, Total Protein 7.1, Albumin 2.6L, Globulin 4.5, Albumin/Globulin Ratio 0.6L Height (Feet): 5 Height (Inches): 7.00 Weight (Pounds): 231 Irving Parker MD Jun 29, 2017 23:14
[2017-06-30] VITALS (8 sets, daily range): BP systolic 99–159; BP diastolic 60–96
[2017-06-30] MEDS: metroNIDAZOLE 500mg tab ORAL SCH ×3 (06:11→20:27)
[2017-06-30 07:26] LABS: HEMATOCRIT 25.3 % (42.0-52.0); HEMOGLOBIN 7.9 G/DL (14.2-18.0); MEAN CORPUSCULAR VOLUME 98 FL (80-99); PLATELET COUNT 97 K/UL (150-450); RED BLOOD COUNT 2.58 M/UL (4.70-6.10); RED CELL DISTRIBUTION WIDTH 18.6 % (11.6-14.8); WHITE BLOOD COUNT 7.2 K/UL (4.8-10.8)
[2017-06-30 07:36] LABS: ALANINE AMINOTRANSFERASE 38 U/L (12-78); ALBUMIN 2.6 G/DL (3.4-5.0); ALBUMIN/GLOBULIN RATIO 0.6 (1.0-2.7); ALKALINE PHOSPHATASE 147 U/L (46-116); ANION GAP 12 mmol/L (5-15); ASPARTATE AMINO TRANSFERASE 73 U/L (15-37); BILIRUBIN,TOTAL 1.2 MG/DL (0.2-1.0); BLOOD UREA NITROGEN 47 mg/dL (7-18); CALCIUM 8.8 MG/DL (8.5-10.1); CARBON DIOXIDE 32 MMOL/L (21-32); CHLORIDE 98 MMOL/L (98-107); CREATININE 12.2 MG/DL (0.55-1.30); POTASSIUM 3.9 MMOL/L (3.5-5.1); SODIUM 142 MMOL/L (136-145)
[2017-06-30 07:37] LABS: BILIRUBIN,DIRECT 0.7 MG/DL (0.0-0.3)
[2017-06-30] MEDS: Docusate 100mg cap ORAL SCH ×3 (08:37→18:06)
[2017-06-30] MEDS: ALPRAZolam 0.5mg tab ORAL PRN (08:38)
[2017-06-30] MEDS: Lisinopril 20mg tab ORAL SCH ×2 (08:38→18:07)
[2017-06-30] MEDS: Carvedilol 25mg Tab ORAL SCH ×2 (08:39→20:27)
--- NOTE | 2017-06-30 09:16 | Pulmonology Progress Note ---
Assessment/Plan Assessment/Plan ASSESSMENT R upper lobe cavitary mass Necrotizing PNA with cavitating lesion RUL r/o TB Acute hypoxemic RF requiring BiPAP -resolved Pleuritic chest pain likely due to necrotizing PNA . Elevated troponin Systolic CHF ( recent negative reversible perfusion defect.) cardiomyopathy pulmonary edema Asthma. End-stage renal disease, on hemodialysis. Hypertensive urgency . Anemia of chronic disease. History of intracardiac defibrillator placement. Prior history of cerebrovascular accident. ESRD on HD thrombocytopenia transaminitis hepatitis C liver cirrhosis cholelithiasis PLAN OF CARE MS resp isolation CT chest 06/26 -Further reduction in size of previously demonstrated thick walled right upper lobe cavitary mass. Currently measures 6 cm AP by 5.2 cm transverse by 3.9 cm craniocaudad, previously approximately 7.8 x 4.9 x 5.2 cm. This was previously thought to most likely represent a cavitary inflammatory mass, and the interim reduction in size certainly supports that. Much less likely a cavitary neoplasm CT chest 06/15- Slightly smaller but mostly unchanged cavitary lesion in the right lung, previously thought to represent a cavitating inflammatory process. Lung abscess is certainly a possibility initial CT chest with evidence of necrotizing PNA with cavitary lesion - 7.8 x 5.3 x 6.6 cm dense opacity in the posterior inferior right upper lobe with a central cavitation. T-SPOT-Neg ; sputum AFB x 3- Neg MTB by PCR x2 -neg cryptococcus Ag, Histo Ab , Blasto ab-all neg ; Cocci, Asp ag pending sputum cx + Providencia/Pseudomonas Ethambutol , Levaquin and Rifaximin, monitor LFT-down to normal, Flagyl added by ID for anaerobic coverage fup with fungal serology and AFB culture Micafungin to cover for possible Aspergilloses O2 titrate, pulm toilet BiPAP at HS and prn HIV negative blood cx negative, influenza screen negative a/tussive prn cardio follows BP management with BB CCB and [facility] medical management for SHF nephro follows HD as per nephro monitor renal parameters, lytes, avoid nephrotoxic heme follows transfuse prn with goal to keep Hgb above 7 anemia w/up c/w anemia of chronic disease and multifactorial as per GI stool OB+ x1 monitor PLT count- better off Heparin SCD Venous Duplex BLE- negative GI follows hep panel + hep C, no viral load , thus no active infection cirrhosis likely 2 to hep C abd US + cholelithiasis, HSM, surgeon consulted CT A/P with hepatic cirrhosis, HSM, anasarca and cholelithiasis, no evidence of acute cholecystis, no surgical intervention necessary per GI defer EGD/colon for now cont resp isolation disposition after [facility] clearance case discussed and evaluated by supervising physician Subjective Allergies: Coded Allergies: IODINE AND IODIDE CONTAINING PRODUC (Verified Allergy, Mild, itching and pruritis, 06/25/17) Uncoded Allergies: CONTRAST/DYE (Allergy, Intermediate, PRURITIS AND ITCHING, 06/25/17) Subjective on resp isolation for possible TB no SOB no CP sitting in the chair on O2 via NC afebrile, no leukocytosis HD today feeling nauseated, x1 emesis earlier non bloody Objective Last 24 Hour Vital Signs Date Time Temp Pulse Resp B/P (MAP) Pulse Ox O2 Delivery O2 Flow Rate FiO2 06/30/17 08:39 71 159/96 06/30/17 08:38 159/96 06/30/17 08:00 97.9 71 20 159/96 93 97.9 06/30/17 07:50 96 Nasal Cannula 4.0 36 06/30/17 07:45 98 Nasal Cannula 5.0 40 06/30/17 07:45 69 20 Nasal Cannula 5.0 06/30/17 07:45 Nasal Cannula 5.0 40 06/30/17 06:51 97.8 06/30/17 06:19 97.8 06/30/17 04:00 97.8 68 20 144/83 94 97.8 06/30/17 02:13 97.9 06/30/17 00:00 97.9 67 20 136/83 97 Nasal Cannula 5.0 97.9 06/30/17 00:00 97.9 67 20 136/83 97 97.9 06/29/17 22:00 94 06/29/17 21:33 97.9 06/29/17 20:45 73 18 Nasal Cannula 5.0 06/29/17 20:45 94 Nasal Cannula 5.0 40 06/29/17 20:45 Nasal Cannula 5.0 40 06/29/17 20:34 74 133/69 06/29/17 20:34 97.9 06/29/17 20:30 133/69 06/29/17 20:00 97.9 75 21 111/66 98 97.9 06/29/17 18:19 98.6 06/29/17 17:49 98.6 06/29/17 17:48 140/78 06/29/17 16:00 98.6 71 19 140/78 95 98.6 06/29/17 11:59 98.4 77 19 141/86 95 98.4 06/29/17 11:57 98.2 06/29/17 11:56 143/85 06/29/17 09:17 76 143/85 06/29/17 09:16 143/85 Intake and Output 06/29/17 06/30/17 19:00 07:00 Intake Total 360 ml 480 ml Balance 360 ml 480 ml Intake Oral 360 ml 480 ml # Voids 4 # Bowel Movements 1 Objective General Appearance: no acute distress, obese, awake, alert, oriented x4 AA male , HEENT: normocephalic, atraumatic, anicteric Respiratory/Chest: decreased breath sounds, ICD LT chest Cardiovascular: normal rate, LUE AV shunt + bruit/thrill, L neck IJ CL intact Abdomen: normal bowel sounds, soft, non tender, obese Extremities: +1 edema BLE Neurologic/Psychiatric: alert, responsive Musculoskeletal: normal muscle bulk Laboratory Tests 06/30/17 05:25: White Blood Count 7.2, Red Blood Count 2.58L, Hemoglobin 7.9L, Hematocrit 25.3L , Mean Corpuscular Volume 98, Mean Corpuscular Hemoglobin 30.7, Mean Corpuscular Hemoglobin Concent 31.3L, Red Cell Distribution Width 18.6H, Platelet Count 97L, Mean Platelet Volume 7.5, Neutrophils (%) (Auto) , Lymphocytes (%) (Auto) , Monocytes (%) (Auto) , Eosinophils (%) (Auto) , Basophils (%) (Auto) , Neutrophils % (Manual) [Pending], Lymphocytes % (Manual) [Pending], Platelet Estimate [Pending], Platelet Morphology [Pending], Sodium Level 142, Potassium Level 3.9, Chloride Level 98, Carbon Dioxide Level 32, Anion Gap 12, Blood Urea Nitrogen 47H, Creatinine 12.2H, Estimat Glomerular Filtration Rate 5.2, Glucose Level 102, Calcium Level 8.8, Total Bilirubin 1.2H , Direct Bilirubin 0.7H, Aspartate Amino Transf (AST/SGOT) 73H, Alanine Aminotransferase (ALT/SGPT) 38, Alkaline Phosphatase 147H, Total Protein 7.0, Albumin 2.6L, Globulin 4.4, Albumin/Globulin Ratio 0.6L Current Medications Medications (Trade) Dose Ordered Sig/Jose Route PRN Reason Start Time Stop Time Status Last Admin Dose Admin Acetaminophen (Tylenol) 650 mg Q4H PRN RECTAL Mild Pain (Pain Scale 1-3) 06/16/17 19:00 07/09/17 18:59 Albuterol/ Ipratropium (Albuterol/ Ipratropium) 3 ml Q4HRT PRN HHN sob 06/27/17 13:15 07/02/17 13:14 Alprazolam (Xanax) 2 mg DAILYPRN PRN ORAL For Anxiety 06/24/17 17:00 07/01/17 16:59 06/30/17 08:38 Carisoprodol (Soma) 350 mg Q6H PRN ORAL MUSCLE SPASMS 06/16/17 19:00 07/14/17 18:59 06/30/17 08:39 Carvedilol (Coreg) 25 mg EVERY 12 HOURS ORAL 06/16/17 21:00 07/04/17 11:29 06/30/17 08:39 Ceftriaxone Sodium 2 gm/ Dextrose 110 ml @ 220 mls/hr Q24H IVPB 06/29/17 20:00 07/06/17 19:59 06/29/17 20:17 Chlorhexidine Gluconate (Mireille-Hex 2%) 1 applic DAILY@2000 TOPIC 06/16/17 20:00 07/05/17 19:59 06/29/17 20:29 Clonidine HCl (Catapres Tab) 0.1 mg Q4H PRN ORAL bp over 160 syst 06/16/17 19:00 07/03/17 18:59 Dextrose (Dextrose 50%) STAT PRN IV Hypoglycemia 06/16/17 19:00 07/14/17 18:59 Docusate Sodium (Colace) 100 mg THREE TIMES A DAY ORAL 06/17/17 20:00 07/03/17 19:59 06/30/17 08:37 Ethambutol HCl (Myambutol) 1,000 mg 3XW ORAL 06/18/17 09:00 07/18/17 23:59 06/30/17 08:38 Hydromorphone HCl (Dilaudid) 1 mg Q4H PRN IVP Moderate Pain (Pain Scale 4-6) 06/27/17 18:00 07/04/17 17:59 06/29/17 17:49 Hydromorphone HCl (Dilaudid) 2 mg Q4H PRN IVP Severe Pain (Pain Scale 7-10) 06/27/17 21:00 07/04/17 20:59 06/30/17 06:19 Levofloxacin (Levaquin) 750 mg EVERY OTHER DAY@2000 ORAL 06/17/17 20:00 07/01/17 23:59 06/29/17 20:29 Lisinopril (Prinivil) 20 mg BID ORAL 06/17/17 09:00 07/04/17 08:59 06/30/17 08:38 Metronidazole (Flagyl) 500 mg Q8HR ORAL 06/17/17 22:00 07/01/17 23:59 06/30/17 06:11 Micafungin Sodium 100 mg/Sodium Chloride 110 ml @ 110 mls/hr Q24H IVPB 06/25/17 20:00 07/02/17 23:59 06/29/17 20:18 Nitroglycerin (Ntg) 0.4 mg Q5M PRN SL Prn Chest Pain 06/16/17 18:15 07/04/17 09:14 Nitroglycerin (Ntg) 1 patch Q24H TDERMAL 06/17/17 11:30 07/04/17 11:29 06/29/17 11:56 Ondansetron HCl (Zofran) 4 mg Q6H PRN IVP Nausea & Vomiting 06/16/17 18:30 07/14/17 18:29 06/30/17 08:33 Pantoprazole (Protonix) 40 mg ACBREAKFAST ORAL 06/17/17 06:30 07/15/17 06:29 06/30/17 06:11 Polyethylene Glycol (Miralax) 17 gm DAILYPRN PRN ORAL Constipation 06/16/17 18:30 07/14/17 18:29 Promethazine HCl/ Codeine (Phenergan with Codeine) 5 ml Q4H PRN ORAL For Cough 06/16/17 18:30 07/05/17 18:29 06/27/17 22:44 Rifampin (Rifadin) 600 mg DAILY ORAL 06/25/17 17:00 07/25/17 16:59 06/30/17 08:39 Sevelamer Carbonate (Renvela) 2,400 mg THREE TIMES A DAY ORAL 06/16/17 18:45 07/16/17 18:44 06/30/17 08:37 Roh[facility] NP Jun 30, 2017 09:16
[2017-06-30] MEDS: Nitroglycerin Patch 0.4mg TDERMAL SCH (13:26)
--- NOTE | 2017-06-30 16:34 | Infectious Diseases Prog Note ---
Assessment/Plan Assessment/Plan A: Cavitary PNA. SCx: Neg ( m/l necrotizing Pneum, r/o Fungal, r/o TB ) ; improving -CT chest 06/25: Since the prior study of 06/15/2017, and. From further reduction in size of previously demonstrated thick walled right upper lobe cavitary mass. This was previously thought to most likely represent a cavitary inflammatory mass, and the interim reduction in size certainly supports that. Much less likely a cavitary neoplasm, but follow-up to resolution is recommended. Markedly improved parenchymal disease bilaterally, since the previous study. Nonetheless , extensive atelectasis and groundglass consolidation persists. Persistent small right pleural effusion, smaller than on the prior study. Resolved left pleural effusion 6 mm nodular opacity in the right upper lobe, not evident previously but likely obscured by surrounding consolidated lung parenchyma. This should be followed up in 6 months to one year depending on results of interim follow-up exams -CXR 06/21: Persistent but slightly decreased size of known right lung cavitary lesion. Persistent extensive interstitial and bilateral airspace opacities. -sp cx 06/05, 06/06 normal resp jodrin; repeat sp cx 06/18 PsA (singh S) + Providencia stuarti (S Ceftriaxone, R Cipro) (likely superinfection/HCAP) Rsp status improved but on 06/[address] his condition worsen T-SPOT :Neg AFB x 3 : Neg MTB PCR x2 : neg cryptococcus Ag, Histoplams mycelial Ab , Blastomyces ab : neg ; histoplasma yeast ab (not able to be done due to anticomplemenatry activity) -Cocci, Asp ag p -Fungitell + 144 06/21 Xray : improvement of cavity CT chest 06/15: Slightly smaller (6 cm diameter ) but mostly unchanged cavitary lesion in the right lung, previously thought to represent a cavitating inflammatory process. Lung abscess is certainly a possibility. Fairly extensive bilateral pulmonary parenchymal consolidation, slightly increased from previous exam of 06/05/2017. Likely a combination of pulmonary edema and pneumonia. Small right and trace left pleural effusion, new/increased from the previous study. CT 06/05: 7.8 x 5.3 x 6.6 cm dense opacity in the posterior inferior right upper lobe with a central cavitation. Chest x-ray : right mid lung infiltrate, possible cavitation Rule out tuberculosis, fungal infection, or necrotizing pneumonia. CRP 14 Influenza negative Low-grade fever, SP Status post leukocytosis. Transaminitis ,? 2/2 Hep C cirrhosis- no active Hep C as VL not detected -CT abd/p: Evidence of hepatic cirrhosis. Hepatosplenomegaly. evidence of generalized anasarca, with pleural fluid and generalized subcutaneous edema. Cholelithiasis, also previously reported. Possible diverticulosis. No evidence of diverticulitis US Abd : Cholelithiasis. There is gallbladder wall thickening, likely related to hemodynamic abnormalities Splenomegaly. Evidence of hepatic cirrhosis HIV : NEG Hep Panel B neg , C Ab : +ve , VL not detected leukopenia and TCP 2/2 splenomegaly Seizure disorder History of CVA History of pacemaker placement Hyperlipidemia Hypertension COPD/asthma End-stage renal disease, on hemodialysis Diabetes Anxiety Anemia Echo, ejection fraction 45% to 50%. PLAN: -Continue Ceftriaxone #9/10 for superimposed p. stuarti PNA Continue Micafungin abx d#16 (switched from voriconazole given drug-drug interaction with Rifampin) for possible Aspergillosis pending cultures and fungal serologies -Continue Flagyl (in addition with Levaquin will provide anaerobic coverage for possible aspiration/cavitary and now PsA PNA as no isolation of resistant organisms); abx d# 28/28-42 Continue empiric Ethambutol and Levaquin d# 18 empiric for TB pending cultures -Cotninue Rifampin 600mg qd #6 -monitor LFTs; if continues to increase , will hold 06/28 SP Amikacin #1 3/ SP PO Voriconazole #3 3/16 SP Liposomal Ampho #8 3/ SP IV Vancomycin #14, Meropenem #5 3/ SP Zosyn d# 10 3/4 SP Zithromax D# 6 f/u sputum culture (, fungal, and AFB x3). f/u Coccidioidal ,Galactomannan and Fungitell, Histoplasma ag urine -daily CMP Airborne isolation for now Disposition per Dept of Public Health Subjective Allergies: Coded Allergies: IODINE AND IODIDE CONTAINING PRODUC (Verified Allergy, Mild, itching and pruritis, 06/25/17) Uncoded Allergies: CONTRAST/DYE (Allergy, Intermediate, PRURITIS AND ITCHING, 06/25/17) Subjective afebrile no leukocytosis mild rise in AST and Tbili Objective Vital Signs Last 24 Hour Vital Signs Date Time Temp Pulse Resp B/P (MAP) Pulse Ox O2 Delivery O2 Flow Rate FiO2 06/30/17 16:00 98.1 79 19 110/68 95 98.1 06/30/17 13:26 99/60 06/30/17 12:00 97.6 72 19 99/60 92 97.6 06/30/17 08:39 71 159/96 06/30/17 08:38 159/96 06/30/17 08:00 97.9 71 20 159/96 93 97.9 06/30/17 07:50 96 Nasal Cannula 4.0 36 06/30/17 07:45 98 Nasal Cannula 5.0 40 06/30/17 07:45 69 20 Nasal Cannula 5.0 06/30/17 07:45 Nasal Cannula 5.0 40 06/30/17 06:51 97.8 06/30/17 06:19 97.8 06/30/17 04:00 97.8 68 20 144/83 94 97.8 06/30/17 02:13 97.9 06/30/17 00:00 97.9 67 20 136/83 97 Nasal Cannula 5.0 97.9 06/30/17 00:00 97.9 67 20 136/83 97 97.9 06/29/17 22:00 94 06/29/17 21:33 97.9 06/29/17 20:45 73 18 Nasal Cannula 5.0 06/29/17 20:45 94 Nasal Cannula 5.0 40 06/29/17 20:45 Nasal Cannula 5.0 40 06/29/17 20:34 74 133/69 06/29/17 20:34 97.9 06/29/17 20:30 133/69 06/29/17 20:00 97.9 75 21 111/66 98 97.9 06/29/17 18:19 98.6 06/29/17 17:49 98.6 06/29/17 17:48 140/78 Height (Feet): 5 Height (Inches): 7.00 Weight (Pounds): 237 Objective General Appearance: WD/WN, alert, moderate distress EENT: PERRL/EOMI, normal ENT inspection Neck: non-tender, normal alignment, supple, normal inspection Cardiovascular: normal peripheral pulses, normal rate, regular rhythm, no gallop/murmur, no JVD Respiratory/Chest: Non rebreather; respiratory distress, crackles/rales, rhonchi - bilaterally, expiratory wheezing Abdomen: normal bowel sounds, non tender, soft, no organomegaly, no mass Extremities: normal range of motion Neurologic: rd scientist 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, no motor/sensory deficits Skin: normal pigmentation, warm/dry Laboratory Tests Test 06/30/17 05:25 White Blood Count 7.2 K/UL (4.8-10.8) Red Blood Count 2.58 M/UL (4.70-6.10) L Hemoglobin 7.9 G/DL (14.2-18.0) L Hematocrit 25.3 % (42.0-52.0) L Mean Corpuscular Volume 98 FL (80-99) Mean Corpuscular Hemoglobin 30.7 PG (27.0-31.0) Mean Corpuscular Hemoglobin Concent 31.3 G/DL (32.0-36.0) L Red Cell Distribution Width 18.6 % (11.6-14.8) H Platelet Count 97 K/UL (150-450) L Mean Platelet Volume 7.5 FL (6.5-10.1) Neutrophils (%) (Auto) % (45.0-75.0) Lymphocytes (%) (Auto) % (20.0-45.0) Monocytes (%) (Auto) % (1.0-10.0) Eosinophils (%) (Auto) % (0.0-3.0) Basophils (%) (Auto) % (0.0-2.0) Differential Total Cells Counted 100 Neutrophils % (Manual) 70 % (45-75) Lymphocytes % (Manual) 10 % (20-45) L Monocytes % (Manual) 16 % (1-10) H Eosinophils % (Manual) 2 % (0-3) Basophils % (Manual) 1 % (0-2) Band Neutrophils 1 % (0-8) Platelet Estimate Decreased L Platelet Morphology Normal Polychromasia 2+ Hypochromasia 1+ Anisocytosis 1+ Sodium Level 142 MMOL/L (136-145) Potassium Level 3.9 MMOL/L (3.5-5.1) Chloride Level 98 MMOL/L (98-107) Carbon Dioxide Level 32 MMOL/L (21-32) Anion Gap 12 mmol/L (5-15) Blood Urea Nitrogen 47 mg/dL (7-18) H Creatinine 12.2 MG/DL (0.55-1.30) H Estimat Glomerular Filtration Rate 5.2 mL/min (>60) Glucose Level 102 MG/DL (74-106) Calcium Level 8.8 MG/DL (8.5-10.1) Total Bilirubin 1.2 MG/DL (0.2-1.0) H Direct Bilirubin 0.7 MG/DL (0.0-0.3) H Aspartate Amino Transf (AST/SGOT) 73 U/L (15-37) H Alanine Aminotransferase (ALT/SGPT) 38 U/L (12-78) Alkaline Phosphatase 147 U/L (46-116) H Total Protein 7.0 G/DL (6.4-8.2) Albumin 2.6 G/DL (3.4-5.0) L Globulin 4.4 g/dL Albumin/Globulin Ratio 0.6 (1.0-2.7) L Current Medications Medications (Trade) Dose Ordered Sig/Jose Route PRN Reason Start Time Stop Time Status Last Admin Dose Admin Acetaminophen (Tylenol) 650 mg Q4H PRN RECTAL Mild Pain (Pain Scale 1-3) 06/16/17 19:00 07/09/17 18:59 Albuterol/ Ipratropium (Albuterol/ Ipratropium) 3 ml Q4HRT PRN HHN sob 06/27/17 13:15 07/02/17 13:14 Alprazolam (Xanax) 2 mg DAILYPRN PRN ORAL For Anxiety 06/24/17 17:00 07/01/17 16:59 06/30/17 08:38 Carisoprodol (Soma) 350 mg Q6H PRN ORAL MUSCLE SPASMS 06/16/17 19:00 07/14/17 18:59 06/30/17 08:39 Carvedilol (Coreg) 25 mg EVERY 12 HOURS ORAL 06/16/17 21:00 07/04/17 11:29 06/30/17 08:39 Ceftriaxone Sodium 2 gm/ Dextrose 110 ml @ 220 mls/hr Q24H IVPB 06/29/17 20:00 07/06/17 19:59 06/29/17 20:17 Chlorhexidine Gluconate (Mireille-Hex 2%) 1 applic DAILY@1999 TOPIC 06/16/17 20:00 07/05/17 19:59 06/29/17 20:29 Clonidine HCl (Catapres Tab) 0.1 mg Q4H PRN ORAL bp over 160 syst 06/16/17 19:00 07/03/17 18:59 Dextrose (Dextrose 50%) STAT PRN IV Hypoglycemia 06/16/17 19:00 07/14/17 18:59 Docusate Sodium (Colace) 100 mg THREE TIMES A DAY ORAL 06/17/17 20:00 07/03/17 19:59 06/30/17 13:25 Ethambutol HCl (Myambutol) 1,000 mg 3XW ORAL 06/18/17 09:00 07/18/17 23:59 06/30/17 08:38 Hydromorphone HCl (Dilaudid) 1 mg Q4H PRN IVP Moderate Pain (Pain Scale 4-6) 06/27/17 18:00 07/04/17 17:59 06/29/17 17:49 Hydromorphone HCl (Dilaudid) 2 mg Q4H PRN IVP Severe Pain (Pain Scale 7-10) 06/27/17 21:00 07/04/17 20:59 06/30/17 15:06 Levofloxacin (Levaquin) 750 mg EVERY OTHER DAY@1999 ORAL 06/17/17 20:00 07/07/17 19:59 06/29/17 20:29 Lisinopril (Prinivil) 20 mg BID ORAL 06/17/17 09:00 07/04/17 08:59 06/30/17 08:38 Metronidazole (Flagyl) 500 mg Q8HR ORAL 06/17/17 22:00 07/07/17 21:59 06/30/17 13:25 Micafungin Sodium 100 mg/Sodium Chloride 110 ml @ 110 mls/hr Q24H IVPB 06/25/17 20:00 07/02/17 23:59 06/29/17 20:18 Nitroglycerin (Ntg) 0.4 mg Q5M PRN SL Prn Chest Pain 06/16/17 18:15 07/04/17 09:14 Nitroglycerin (Ntg) 1 patch Q24H TDERMAL 06/17/17 11:30 07/04/17 11:29 06/30/17 13:26 Ondansetron HCl (Zofran) 4 mg Q6H PRN IVP Nausea & Vomiting 06/16/17 18:30 07/14/17 18:29 06/30/17 08:33 Pantoprazole (Protonix) 40 mg ACBREAKFAST ORAL 06/17/17 06:30 07/15/17 06:29 06/30/17 06:11 Polyethylene Glycol (Miralax) 17 gm DAILYPRN PRN ORAL Constipation 06/16/17 18:30 07/14/17 18:29 Promethazine HCl/ Codeine (Phenergan with Codeine) 5 ml Q4H PRN ORAL For Cough 06/16/17 18:30 07/05/17 18:29 06/27/17 22:44 Rifampin (Rifadin) 600 mg DAILY ORAL 06/25/17 17:00 07/25/17 16:59 06/30/17 08:39 Sevelamer Carbonate (Renvela) 2,400 mg THREE TIMES A DAY ORAL 06/16/17 18:45 07/16/17 18:44 06/30/17 13:25 Aleja Crocker M.D. Jun 30, 2017 16:34
--- NOTE | 2017-06-30 16:40 | Nephrology Progress Note ---
Assessment/Plan Problem List: (1) ESRD (end stage renal disease) on dialysis (2) Shortness of breath (3) Anemia Assessment worsenning Anemia ESRD , missed HD , admitted with high K and pulmonary edema Acute respiratory distress due to volume overload elevated troponin r/o ACS h/o COPD ? exacerbation HTN urgency Cardiomyopathy L AICD anemia of chronic kidney disease Hx of CVA Plan Plan: Low H&H - consider transfusion HD next 06/30 Transfused Phos binders BP meds adjustment Optimize cardiac status per orders Subjective ROS Limited/Unobtainable: No Constitutional: Reports: malaise Objective Objective Last 24 Hour Vital Signs Date Time Temp Pulse Resp B/P (MAP) Pulse Ox O2 Delivery O2 Flow Rate FiO2 06/30/17 16:00 98.1 79 19 110/68 95 98.1 06/30/17 13:26 99/60 06/30/17 12:00 97.6 72 19 99/60 92 97.6 06/30/17 08:39 71 159/96 06/30/17 08:38 159/96 06/30/17 08:00 97.9 71 20 159/96 93 97.9 06/30/17 07:50 96 Nasal Cannula 4.0 36 06/30/17 07:45 98 Nasal Cannula 5.0 40 06/30/17 07:45 69 20 Nasal Cannula 5.0 06/30/17 07:45 Nasal Cannula 5.0 40 06/30/17 06:51 97.8 06/30/17 06:19 97.8 06/30/17 04:00 97.8 68 20 144/83 94 97.8 06/30/17 02:13 97.9 06/30/17 00:00 97.9 67 20 136/83 97 Nasal Cannula 5.0 97.9 06/30/17 00:00 97.9 67 20 136/83 97 97.9 06/29/17 22:00 94 06/29/17 21:33 97.9 06/29/17 20:45 73 18 Nasal Cannula 5.0 06/29/17 20:45 94 Nasal Cannula 5.0 40 06/29/17 20:45 Nasal Cannula 5.0 40 06/29/17 20:34 74 133/69 06/29/17 20:34 97.9 06/29/17 20:30 133/69 06/29/17 20:00 97.9 75 21 111/66 98 97.9 06/29/17 18:19 98.6 06/29/17 17:49 98.6 06/29/17 17:48 140/78 Intake and Output 06/29/17 06/30/17 19:00 07:00 Intake Total 360 ml 480 ml Balance 360 ml 480 ml Intake Oral 360 ml 480 ml # Voids 4 # Bowel Movements 1 Laboratory Tests 06/30/17 05:25: White Blood Count 7.2, Red Blood Count 2.58L, Hemoglobin 7.9L, Hematocrit 25.3L , Mean Corpuscular Volume 98, Mean Corpuscular Hemoglobin 30.7, Mean Corpuscular Hemoglobin Concent 31.3L, Red Cell Distribution Width 18.6H, Platelet Count 97L, Mean Platelet Volume 7.5, Neutrophils (%) (Auto) , Lymphocytes (%) (Auto) , Monocytes (%) (Auto) , Eosinophils (%) (Auto) , Basophils (%) (Auto) , Differential Total Cells Counted 100, Neutrophils % ( Manual) 70, Lymphocytes % (Manual) 10L, Monocytes % (Manual) 16H, Eosinophils % (Manual) 2, Basophils % (Manual) 1, Band Neutrophils 1, Platelet Estimate DecreasedL, Platelet Morphology Normal, Polychromasia 2+, Hypochromasia 1+, Anisocytosis 1+, Sodium Level 142, Potassium Level 3.9, Chloride Level 98, Carbon Dioxide Level 32, Anion Gap 12, Blood Urea Nitrogen 47H, Creatinine 12.2H , Estimat Glomerular Filtration Rate 5.2, Glucose Level 102, Calcium Level 8.8, Total Bilirubin 1.2H, Direct Bilirubin 0.7H, Aspartate Amino Transf (AST/SGOT) 73H, Alanine Aminotransferase (ALT/SGPT) 38, Alkaline Phosphatase 147H, Total Protein 7.0, Albumin 2.6L, Globulin 4.4, Albumin/Globulin Ratio 0.6L Height (Feet): 5 Height (Inches): 7.00 Weight (Pounds): 237 General Appearance: no apparent distress Objective no change LIAM MONTELONGO 26, 2018 16:40
--- NOTE | 2017-06-30 16:51 | Internal Med Progress Note ---
Subjective Date of Service: Jun 30, 2017 Physician Name Zoey Pires Attending Physician Chaitanya Weinstein MD Current Medications Medications (Trade) Dose Ordered Sig/Jose Route PRN Reason Start Time Stop Time Status Last Admin Dose Admin Acetaminophen (Tylenol) 650 mg Q4H PRN RECTAL Mild Pain (Pain Scale 1-3) 06/16/17 19:00 07/09/17 18:59 Albuterol/ Ipratropium (Albuterol/ Ipratropium) 3 ml Q4HRT PRN HHN sob 06/27/17 13:15 07/02/17 13:14 Alprazolam (Xanax) 2 mg DAILYPRN PRN ORAL For Anxiety 06/24/17 17:00 07/01/17 16:59 06/30/17 08:38 Carisoprodol (Soma) 350 mg Q6H PRN ORAL MUSCLE SPASMS 06/16/17 19:00 07/14/17 18:59 06/30/17 08:39 Carvedilol (Coreg) 25 mg EVERY 12 HOURS ORAL 06/16/17 21:00 07/04/17 11:29 06/30/17 08:39 Ceftriaxone Sodium 2 gm/ Dextrose 110 ml @ 220 mls/hr Q24H IVPB 06/29/17 20:00 07/06/17 19:59 06/29/17 20:17 Chlorhexidine Gluconate (Mireille-Hex 2%) 1 applic DAILY@2000 TOPIC 06/16/17 20:00 07/05/17 19:59 06/29/17 20:29 Clonidine HCl (Catapres Tab) 0.1 mg Q4H PRN ORAL bp over 160 syst 06/16/17 19:00 07/03/17 18:59 Dextrose (Dextrose 50%) STAT PRN IV Hypoglycemia 06/16/17 19:00 07/14/17 18:59 Docusate Sodium (Colace) 100 mg THREE TIMES A DAY ORAL 06/17/17 20:00 07/03/17 19:59 06/30/17 13:25 Ethambutol HCl (Myambutol) 1,000 mg 3XW ORAL 06/18/17 09:00 07/18/17 23:59 06/30/17 08:38 Hydromorphone HCl (Dilaudid) 1 mg Q4H PRN IVP Moderate Pain (Pain Scale 4-6) 06/27/17 18:00 07/04/17 17:59 06/29/17 17:49 Hydromorphone HCl (Dilaudid) 2 mg Q4H PRN IVP Severe Pain (Pain Scale 7-10) 06/27/17 21:00 07/04/17 20:59 06/30/17 15:06 Levofloxacin (Levaquin) 750 mg EVERY OTHER DAY@2000 ORAL 06/17/17 20:00 07/07/17 19:59 06/29/17 20:29 Lisinopril (Prinivil) 20 mg BID ORAL 06/17/17 09:00 07/04/17 08:59 06/30/17 08:38 Metronidazole (Flagyl) 500 mg Q8HR ORAL 06/17/17 22:00 07/07/17 21:59 06/30/17 13:25 Micafungin Sodium 100 mg/Sodium Chloride 110 ml @ 110 mls/hr Q24H IVPB 06/25/17 20:00 07/02/17 23:59 06/29/17 20:18 Nitroglycerin (Ntg) 0.4 mg Q5M PRN SL Prn Chest Pain 06/16/17 18:15 07/04/17 09:14 Nitroglycerin (Ntg) 1 patch Q24H TDERMAL 06/17/17 11:30 07/04/17 11:29 06/30/17 13:26 Ondansetron HCl (Zofran) 4 mg Q6H PRN IVP Nausea & Vomiting 06/16/17 18:30 07/14/17 18:29 06/30/17 08:33 Pantoprazole (Protonix) 40 mg ACBREAKFAST ORAL 06/17/17 06:30 07/15/17 06:29 06/30/17 06:11 Polyethylene Glycol (Miralax) 17 gm DAILYPRN PRN ORAL Constipation 06/16/17 18:30 07/14/17 18:29 Promethazine HCl/ Codeine (Phenergan with Codeine) 5 ml Q4H PRN ORAL For Cough 06/16/17 18:30 07/05/17 18:29 06/27/17 22:44 Rifampin (Rifadin) 600 mg DAILY ORAL 06/25/17 17:00 07/25/17 16:59 06/30/17 08:39 Sevelamer Carbonate (Renvela) 2,400 mg THREE TIMES A DAY ORAL 06/16/17 18:45 07/16/17 18:44 06/30/17 13:25 Allergies: Coded Allergies: IODINE AND IODIDE CONTAINING PRODUC (Verified Allergy, Mild, itching and pruritis, 06/25/17) Uncoded Allergies: CONTRAST/DYE (Allergy, Intermediate, PRURITIS AND ITCHING, 06/25/17) ROS Limited/Unobtainable: No Constitutional: Reports: no symptoms HEENT: Reports: no symptoms Cardiovascular: Reports: no symptoms Respiratory: Reports: cough Gastrointestinal/Abdominal: Reports: no symptoms Genitourinary: Reports: no symptoms Neurologic/Psychiatric: Reports: no symptoms Subjective 57 YO M admitted with chest pain and shortness of breath. Now pneumonia and candelaria heart failure. Back on nasal canula. Cover for Int Med-Dr Weinstein. Hemodialysis today 06/30/17 Objective Last Vital Signs Date Time Temp Pulse Resp B/P (MAP) Pulse Ox O2 Delivery O2 Flow Rate FiO2 06/30/17 16:00 98.1 79 19 110/68 95 98.1 06/30/17 14:00 Room Air 06/30/17 07:50 4.0 36 Laboratory Tests Test 06/30/17 05:25 White Blood Count 7.2 K/UL (4.8-10.8) Red Blood Count 2.58 M/UL (4.70-6.10) L Hemoglobin 7.9 G/DL (14.2-18.0) L Hematocrit 25.3 % (42.0-52.0) L Mean Corpuscular Volume 98 FL (80-99) Mean Corpuscular Hemoglobin 30.7 PG (27.0-31.0) Mean Corpuscular Hemoglobin Concent 31.3 G/DL (32.0-36.0) L Red Cell Distribution Width 18.6 % (11.6-14.8) H Platelet Count 97 K/UL (150-450) L Mean Platelet Volume 7.5 FL (6.5-10.1) Neutrophils (%) (Auto) % (45.0-75.0) Lymphocytes (%) (Auto) % (20.0-45.0) Monocytes (%) (Auto) % (1.0-10.0) Eosinophils (%) (Auto) % (0.0-3.0) Basophils (%) (Auto) % (0.0-2.0) Differential Total Cells Counted 100 Neutrophils % (Manual) 70 % (45-75) Lymphocytes % (Manual) 10 % (20-45) L Monocytes % (Manual) 16 % (1-10) H Eosinophils % (Manual) 2 % (0-3) Basophils % (Manual) 1 % (0-2) Band Neutrophils 1 % (0-8) Platelet Estimate Decreased L Platelet Morphology Normal Polychromasia 2+ Hypochromasia 1+ Anisocytosis 1+ Sodium Level 142 MMOL/L (136-145) Potassium Level 3.9 MMOL/L (3.5-5.1) Chloride Level 98 MMOL/L (98-107) Carbon Dioxide Level 32 MMOL/L (21-32) Anion Gap 12 mmol/L (5-15) Blood Urea Nitrogen 47 mg/dL (7-18) H Creatinine 12.2 MG/DL (0.55-1.30) H Estimat Glomerular Filtration Rate 5.2 mL/min (>60) Glucose Level 102 MG/DL (74-106) Calcium Level 8.8 MG/DL (8.5-10.1) Total Bilirubin 1.2 MG/DL (0.2-1.0) H Direct Bilirubin 0.7 MG/DL (0.0-0.3) H Aspartate Amino Transf (AST/SGOT) 73 U/L (15-37) H Alanine Aminotransferase (ALT/SGPT) 38 U/L (12-78) Alkaline Phosphatase 147 U/L (46-116) H Total Protein 7.0 G/DL (6.4-8.2) Albumin 2.6 G/DL (3.4-5.0) L Globulin 4.4 g/dL Albumin/Globulin Ratio 0.6 (1.0-2.7) L Intake and Output 06/29/17 06/30/17 19:00 07:00 Intake Total 360 ml 480 ml Balance 360 ml 480 ml Intake Oral 360 ml 480 ml # Voids 4 # Bowel Movements 1 Objective General Appearance: WD/WN, alert, moderate distress EENT: PERRL/EOMI, normal ENT inspection Neck: non-tender, normal alignment, supple, normal inspection Cardiovascular: normal peripheral pulses, normal rate, regular rhythm, no gallop/murmur, no JVD Respiratory/Chest: Nasal canula; respiratory distress, crackles/rales, rhonchi - bilaterally, expiratory wheezing Abdomen: normal bowel sounds, non tender, soft, no organomegaly, no mass Extremities: normal range of motion Neurologic: material attendant 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 Currently on nasal canula. See pulmonay note. (2) Pleuritic chest pain (3) Hemoptysis Assessment & Plan: Due to pneumonia (4) Pneumonia Assessment & Plan: Providencia and pseudamonas. RUL and cavitary. Concerning for TB. Await AFB cultures-see ID consult. Continue vanco and ethambutol per ID. Continue rocephin, micafungin, flagyl, amikacin, levaquin, and rifampin (5) Shortness of breath (6) ESRD (end stage renal disease) on dialysis Assessment & Plan: See nephrology note. Hemodialysis 06/30/17 per nephrology (7) Hyperkalemia Assessment & Plan: Due to renal failure. Hemodialysis 06/12/17 per nephrology (8) COPD (chronic obstructive pulmonary disease) (9) HTN (hypertension) Assessment & Plan: Continue coreg and lisinopril. (10) CHF (congestive heart failure) (11) Elevated troponin Assessment & Plan: ?due to renal failure? See cardiology note. (12) Intractable abdominal pain Assessment & Plan: See surgery note. Await CT abdomen (13) Conjunctivitis Assessment & Plan: start tobramycin Status: not improved ZOEY PIRES Jun 30, 2017 16:51
[2017-06-30] MEDS: cefTRIAXone 2 GM in D5W 110 ML IVPB SCH (20:27)
[2017-06-30] MEDS: Micafungin 100 MG in NS 110 ML IVPB SCH (20:27)
[2017-06-30] MEDS: Dyna-Hex 2% Top Sol 2oz TOPIC SCH (20:27)
--- NOTE | 2017-06-30 23:09 | General Progress Note ---
Assessment/Plan Assessment/Plan Assessment - Anemia, multifactorial - OB (+) Stool - w/u deferred due to respiratory status - ESRD/HD - DM - HTN - COPD - Cavitary lung disease - gallstones - RUQ TTP and improving LFT - abnormal GB ultrasound - Thrombocytopenia - cirrhotic appearing liver on CT - Hepatitis C Ab (+)/ PCR (-) - Poor prognosis Recommendations - PO as tolerated - monitor LFT - slightly elevated again - check AFP and Ammonia - abx per ID - transfuse PRN - Acid blockade - Defer EGD/Colon a this time Subjective Allergies: Coded Allergies: IODINE AND IODIDE CONTAINING PRODUC (Verified Allergy, Mild, itching and pruritis, 06/25/17) Uncoded Allergies: CONTRAST/DYE (Allergy, Intermediate, PRURITIS AND ITCHING, 06/25/17) Subjective above noted no events overnight tolerating PO weak Objective Last 24 Hour Vital Signs Date Time Temp Pulse Resp B/P (MAP) Pulse Ox O2 Delivery O2 Flow Rate FiO2 06/30/17 20:44 98.8 06/30/17 20:27 87 136/75 06/30/17 20:14 98.8 06/30/17 20:00 97.8 87 19 136/75 93 97.8 06/30/17 18:09 Room Air 06/30/17 18:07 110/68 06/30/17 18:00 98.8 85 20 116/67 Room Air 98.8 06/30/17 16:00 Nasal Cannula 5.0 06/30/17 16:00 98.1 79 19 110/68 95 98.1 06/30/17 14:00 98.1 92 2 127/68 Room Air 98.1 06/30/17 14:00 Room Air 06/30/17 13:26 99/60 06/30/17 12:00 97.6 72 19 99/60 92 97.6 06/30/17 12:00 Nasal Cannula 5.0 06/30/17 08:39 71 159/96 06/30/17 08:38 159/96 06/30/17 08:00 97.9 71 20 159/96 93 97.9 06/30/17 08:00 Nasal Cannula 5.0 06/30/17 07:50 96 Nasal Cannula 4.0 36 06/30/17 07:45 98 Nasal Cannula 5.0 40 06/30/17 07:45 69 20 Nasal Cannula 5.0 06/30/17 07:45 Nasal Cannula 5.0 40 06/30/17 06:19 97.8 06/30/17 04:00 97.8 68 20 144/83 94 97.8 06/30/17 02:13 97.9 06/30/17 00:00 97.9 67 20 136/83 97 Nasal Cannula 5.0 97.9 06/30/17 00:00 97.9 67 20 136/83 97 97.9 Intake and Output 06/29/17 06/30/17 19:00 07:00 Intake Total 360 ml 480 ml Balance 360 ml 480 ml Intake Oral 360 ml 480 ml # Voids 4 # Bowel Movements 1 Laboratory Tests 06/30/17 05:25: White Blood Count 7.2, Red Blood Count 2.58L, Hemoglobin 7.9L, Hematocrit 25.3L , Mean Corpuscular Volume 98, Mean Corpuscular Hemoglobin 30.7, Mean Corpuscular Hemoglobin Concent 31.3L, Red Cell Distribution Width 18.6H, Platelet Count 97L, Mean Platelet Volume 7.5, Neutrophils (%) (Auto) , Lymphocytes (%) (Auto) , Monocytes (%) (Auto) , Eosinophils (%) (Auto) , Basophils (%) (Auto) , Differential Total Cells Counted 100, Neutrophils % ( Manual) 70, Lymphocytes % (Manual) 10L, Monocytes % (Manual) 16H, Eosinophils % (Manual) 2, Basophils % (Manual) 1, Band Neutrophils 1, Platelet Estimate DecreasedL, Platelet Morphology Normal, Polychromasia 2+, Hypochromasia 1+, Anisocytosis 1+, Sodium Level 142, Potassium Level 3.9, Chloride Level 98, Carbon Dioxide Level 32, Anion Gap 12, Blood Urea Nitrogen 47H, Creatinine 12.2H , Estimat Glomerular Filtration Rate 5.2, Glucose Level 102, Calcium Level 8.8, Total Bilirubin 1.2H, Direct Bilirubin 0.7H, Aspartate Amino Transf (AST/SGOT) 73H, Alanine Aminotransferase (ALT/SGPT) 38, Alkaline Phosphatase 147H, Total Protein 7.0, Albumin 2.6L, Globulin 4.4, Albumin/Globulin Ratio 0.6L Height (Feet): 5 Height (Inches): 7.00 Weight (Pounds): 237 Objective WDWN AA Man NCAT supple CTA RRR Soft mildly distended, (+) improved RUQ TTP, (+) trunk edema (+) leg edema PERCY JOYNER Jun 30, 2017 23:09
--- NOTE | 2017-06-30 23:27 | General Progress Note ---
Assessment/Plan Assessment/Plan #. Anemia secondary to chronic disease. --> Hemoglobin levels currently ~8, has been above goal and does not need transfusion at this time --> S/P abd CAT scan revealing evidence of hepatic cirrhosis. --> Hepatosplenomegaly. Ascites. There is also evidence of generalized anasarca , with pleural fluid and generalized subcutaneous edema --> Continue to closely monitor and trend cbc daily. --> Anemia workup completed and reviewed. Iron 42, TIBC 180, Ferritin 593, B12 876. --> Ferritin is >500, hgb goal is >7 --> Anemia w/u has been reviewed --> ++Occult blood. Consider GI Services and Recs. --> Abd pain improved on pain management #. Anemia of kidney disease --> HD as needed per nephrology team --> Monitor closely. #. Generalized body ache related to fluid overload. #. End-stage renal disease, on hemodialysis as needed --> Monitor. S/P HD. #. Tachycardia, to be seen by Cardiology Service, isolated T-wave and ST- segment depression in V6. --> HR has been ~80-90bpm --> S/P Chest CT -- Evidence of worsening CHF/interstitial edema. --> Monitor for improvement. #. Elevated BNP, potentially related to underlying CKD. #. Cardiomegaly. S/P Chest Xray --> Persistent but slightly decreased size of known right lung cavitary lesion. --> Persistent extensive interstitial and bilateral airspace opacities. --> Improved. Subjective Date patient seen: Jun 30, 2017 Constitutional: Denies: no symptoms, chills, diaphoresis, fever, malaise, weakness, other HEENT: Denies: no symptoms, eye pain, blurred vision, tearing, double vision, ear pain, ear discharge, nose pain, nose congestion, throat pain, throat swelling, mouth pain, mouth swelling, other Cardiovascular: Denies: no symptoms, chest pain, edema, irregular heart rate, lightheadedness, palpitations, syncope, other Respiratory: Denies: no symptoms, cough, orthopnea, shortness of breath, SOB with excertion, SOB at rest, sputum, stridor, wheezing, other Gastrointestinal/Abdominal: Denies: no symptoms, abdomen distended, abdominal pain, black stools, tarry stools, blood in stool, constipated, diarrhea, difficulty swallowing, nausea, poor appetite, poor fluid intake, rectal bleeding , vomiting, other Genitourinary: Denies: no symptoms, burning, discharge, frequency, flank pain, hematuria, incontinence, pain, urgency, other Neurologic/Psychiatric: Denies: no symptoms, anxiety, depressed, emotional problems, headache, numbness, paresthesia, pre-existing deficit, seizure, tingling, tremors, weakness, other Hematologic/Lymphatic: Reports: anemia Allergies: Coded Allergies: IODINE AND IODIDE CONTAINING PRODUC (Verified Allergy, Mild, itching and pruritis, 06/25/17) Uncoded Allergies: CONTRAST/DYE (Allergy, Intermediate, PRURITIS AND ITCHING, 06/25/17) Subjective Generalized weakness. No major events. Afebrile. Objective Last 24 Hour Vital Signs Date Time Temp Pulse Resp B/P (MAP) Pulse Ox O2 Delivery O2 Flow Rate FiO2 06/30/17 20:44 98.8 06/30/17 20:27 87 136/75 06/30/17 20:14 98.8 06/30/17 20:00 97.8 87 19 136/75 93 97.8 06/30/17 18:09 Room Air 06/30/17 18:07 110/68 06/30/17 18:00 98.8 85 20 116/67 Room Air 98.8 06/30/17 16:00 Nasal Cannula 5.0 06/30/17 16:00 98.1 79 19 110/68 95 98.1 06/30/17 14:00 98.1 92 2 127/68 Room Air 98.1 06/30/17 14:00 Room Air 06/30/17 13:26 99/60 06/30/17 12:00 97.6 72 19 99/60 92 97.6 06/30/17 12:00 Nasal Cannula 5.0 06/30/17 08:39 71 159/96 06/30/17 08:38 159/96 06/30/17 08:00 97.9 71 20 159/96 93 97.9 06/30/17 08:00 Nasal Cannula 5.0 06/30/17 07:50 96 Nasal Cannula 4.0 36 06/30/17 07:45 98 Nasal Cannula 5.0 40 06/30/17 07:45 69 20 Nasal Cannula 5.0 06/30/17 07:45 Nasal Cannula 5.0 40 06/30/17 06:19 97.8 06/30/17 04:00 97.8 68 20 144/83 94 97.8 06/30/17 02:13 97.9 06/30/17 00:00 97.9 67 20 136/83 97 Nasal Cannula 5.0 97.9 06/30/17 00:00 97.9 67 20 136/83 97 97.9 Intake and Output 06/29/17 06/30/17 19:00 07:00 Intake Total 360 ml 480 ml Balance 360 ml 480 ml Intake Oral 360 ml 480 ml # Voids 4 # Bowel Movements 1 Laboratory Tests 06/30/17 05:25: White Blood Count 7.2, Red Blood Count 2.58L, Hemoglobin 7.9L, Hematocrit 25.3L , Mean Corpuscular Volume 98, Mean Corpuscular Hemoglobin 30.7, Mean Corpuscular Hemoglobin Concent 31.3L, Red Cell Distribution Width 18.6H, Platelet Count 97L, Mean Platelet Volume 7.5, Neutrophils (%) (Auto) , Lymphocytes (%) (Auto) , Monocytes (%) (Auto) , Eosinophils (%) (Auto) , Basophils (%) (Auto) , Differential Total Cells Counted 100, Neutrophils % ( Manual) 70, Lymphocytes % (Manual) 10L, Monocytes % (Manual) 16H, Eosinophils % (Manual) 2, Basophils % (Manual) 1, Band Neutrophils 1, Platelet Estimate DecreasedL, Platelet Morphology Normal, Polychromasia 2+, Hypochromasia 1+, Anisocytosis 1+, Sodium Level 142, Potassium Level 3.9, Chloride Level 98, Carbon Dioxide Level 32, Anion Gap 12, Blood Urea Nitrogen 47H, Creatinine 12.2H , Estimat Glomerular Filtration Rate 5.2, Glucose Level 102, Calcium Level 8.8, Total Bilirubin 1.2H, Direct Bilirubin 0.7H, Aspartate Amino Transf (AST/SGOT) 73H, Alanine Aminotransferase (ALT/SGPT) 38, Alkaline Phosphatase 147H, Total Protein 7.0, Albumin 2.6L, Globulin 4.4, Albumin/Globulin Ratio 0.6L Height (Feet): 5 Height (Inches): 7.00 Weight (Pounds): 237 General Appearance: no apparent distress Respiratory/Chest: decreased breath sounds Abdomen: soft Irving Parker MD Jun 30, 2017 23:27
[2017-07-01] VITALS: BP 126/70
[2017-07-01 04:00] VITALS: BP 112/65
[2017-07-01] MEDS: metroNIDAZOLE 500mg tab ORAL SCH ×3 (05:04→21:37)
[2017-07-01 06:57] LABS: INR 3.1 (0.9-1.1)
[2017-07-01 07:27] LABS: ALANINE AMINOTRANSFERASE 44 U/L (12-78); ALBUMIN 2.6 G/DL (3.4-5.0); ALBUMIN/GLOBULIN RATIO 0.6 (1.0-2.7); ALKALINE PHOSPHATASE 146 U/L (46-116); ANION GAP 10 mmol/L (5-15); ASPARTATE AMINO TRANSFERASE 89 U/L (15-37); BILIRUBIN,TOTAL 1.1 MG/DL (0.2-1.0); BLOOD UREA NITROGEN 32 mg/dL (7-18); CALCIUM 8.8 MG/DL (8.5-10.1); CARBON DIOXIDE 35 MMOL/L (21-32); CHLORIDE 99 MMOL/L (98-107); CREATININE 9.4 MG/DL (0.55-1.30); POTASSIUM 3.8 MMOL/L (3.5-5.1); SODIUM 144 MMOL/L (136-145)
[2017-07-01 07:28] LABS: BILIRUBIN,DIRECT 0.7 MG/DL (0.0-0.3)
[2017-07-01 07:53] VITALS: BP 131/76
[2017-07-01] MEDS: Lisinopril 20mg tab ORAL SCH ×2 (09:29→17:53)
[2017-07-01] MEDS: Carvedilol 25mg Tab ORAL SCH ×2 (09:29→20:34)
[2017-07-01] MEDS: Docusate 100mg cap ORAL SCH ×3 (09:29→17:52)
--- NOTE | 2017-07-01 10:16 | Pulmonology Progress Note ---
Assessment/Plan Assessment/Plan ASSESSMENT R upper lobe cavitary mass Necrotizing PNA with cavitating lesion RUL r/o TB Acute hypoxemic RF requiring BiPAP -resolved Pleuritic chest pain likely due to necrotizing PNA . Elevated troponin Systolic CHF ( recent negative reversible perfusion defect.) cardiomyopathy pulmonary edema Asthma. End-stage renal disease, on hemodialysis. Hypertensive urgency . Anemia of chronic disease. History of intracardiac defibrillator placement. Prior history of cerebrovascular accident. ESRD on HD thrombocytopenia transaminitis hepatitis C liver cirrhosis cholelithiasis PLAN OF CARE MS resp isolation CT chest 06/26 -Further reduction in size of previously demonstrated thick walled right upper lobe cavitary mass. Currently measures 6 cm AP by 5.2 cm transverse by 3.9 cm craniocaudad, previously approximately 7.8 x 4.9 x 5.2 cm. This was previously thought to most likely represent a cavitary inflammatory mass, and the interim reduction in size certainly supports that. Much less likely a cavitary neoplasm CT chest 06/15- Slightly smaller but mostly unchanged cavitary lesion in the right lung, previously thought to represent a cavitating inflammatory process. Lung abscess is certainly a possibility initial CT chest with evidence of necrotizing PNA with cavitary lesion - 7.8 x 5.3 x 6.6 cm dense opacity in the posterior inferior right upper lobe with a central cavitation. T-SPOT-Neg ; sputum AFB x 3- Neg MTB by PCR x2 -neg cryptococcus Ag, Histo Ab , Blasto ab-all neg ; Cocci, Asp ag pending sputum cx + Providencia/Pseudomonas Ethambutol , Levaquin and Rifaximin, monitor LFT-down to normal, Flagyl added by ID for anaerobic coverage fup with fungal serology and AFB culture Micafungin to cover for possible Aspergilloses O2 titrate, pulm toilet BiPAP at HS and prn HIV negative blood cx negative, influenza screen negative a/tussive prn cardio follows BP management with BB [facility] and [facility] medical management for SHF nephro follows HD as per nephro monitor renal parameters, lytes, avoid nephrotoxic heme follows transfuse prn with goal to keep Hgb above 7 anemia w/up c/w anemia of chronic disease and multifactorial as per GI stool OB+ x1 monitor PLT count- better off Heparin SCD Venous Duplex BLE- negative GI follows hep panel + hep C, no viral load , thus no active infection cirrhosis likely 2 to hep C abd US + cholelithiasis, HSM, surgeon consulted CT A/P with hepatic cirrhosis, HSM, anasarca and cholelithiasis, no evidence of acute cholecystis, no surgical intervention necessary per GI defer EGD/colon for now cont resp isolation disposition after [facility] clearance case discussed and evaluated by supervising physician Subjective Allergies: Coded Allergies: IODINE AND IODIDE CONTAINING PRODUC (Verified Allergy, Mild, itching and pruritis, 06/25/17) Uncoded Allergies: CONTRAST/DYE (Allergy, Intermediate, PRURITIS AND ITCHING, 06/25/17) Subjective on resp isolation for possible TB no SOB no CP sitting in the chair on O2 via NC afebrile, no leukocytosis HD done Friday feeling better, no n/v/ Objective Last 24 Hour Vital Signs Date Time Temp Pulse Resp B/P (MAP) Pulse Ox O2 Delivery O2 Flow Rate FiO2 07/01/17 09:29 131/76 07/01/17 09:29 80 131/76 07/01/17 07:53 97.8 80 20 131/76 99 97.8 07/01/17 07:27 Nasal Cannula 5.0 40 07/01/17 07:27 95 Nasal Cannula 5.0 40 07/01/17 07:26 85 18 Nasal Cannula 5.0 40 07/01/17 05:34 98.2 07/01/17 05:04 98.2 07/01/17 04:15 94 Nasal Cannula 5.0 07/01/17 04:00 98.2 86 19 112/65 92 98.2 07/01/17 01:09 98.1 07/01/17 00:39 98.1 07/01/17 00:39 98.1 07/01/17 00:00 98.1 84 19 126/70 98.1 06/30/17 23:36 92 Nasal Cannula 3.0 32 06/30/17 23:36 Nasal Cannula 3.0 32 06/30/17 23:36 73 18 Nasal Cannula 3.0 32 06/30/17 23:36 92 06/30/17 20:27 87 136/75 06/30/17 20:14 98.8 06/30/17 20:00 97.8 87 19 136/75 93 97.8 06/30/17 18:09 Room Air 06/30/17 18:07 110/68 06/30/17 18:00 98.8 85 20 116/67 Room Air 98.8 06/30/17 16:00 Nasal Cannula 5.0 06/30/17 16:00 98.1 79 19 110/68 95 98.1 06/30/17 14:00 98.1 92 2 127/68 Room Air 98.1 06/30/17 14:00 Room Air 06/30/17 13:26 99/60 06/30/17 12:00 97.6 72 19 99/60 92 97.6 06/30/17 12:00 Nasal Cannula 5.0 Intake and Output 06/30/17 07/01/17 19:00 07:00 Intake Total 360 ml 510 ml Output Total 3000 ml Balance -2640 ml 510 ml Intake Oral 360 ml IV Total 110 ml Other 400 ml Hemodialysis UF 3000 ml # Voids 2 # Bowel Movements 1 Objective General Appearance: no acute distress, obese, awake, alert, oriented x4 AA male , HEENT: normocephalic, atraumatic, anicteric Respiratory/Chest: decreased breath sounds, ICD LT chest Cardiovascular: normal rate, LUE AV shunt + bruit/thrill, L neck IJ CL intact Abdomen: normal bowel sounds, soft, non tender, obese Extremities: +1 edema BLE Neurologic/Psychiatric: alert, responsive Musculoskeletal: normal muscle bulk Laboratory Tests 07/01/17 05:15: Prothrombin Time 32.4H, Prothromb Time International Ratio 3.1H, Sodium Level 144, Potassium Level 3.8, Chloride Level 99, Carbon Dioxide Level 35H, Anion Gap 10, Blood Urea Nitrogen 32H, Creatinine 9.4H, Estimat Glomerular Filtration Rate 7.0, Glucose Level 127H, Calcium Level 8.8, Total Bilirubin 1.1H, Direct Bilirubin 0.7H, Aspartate Amino Transf (AST/SGOT) 89H, Alanine Aminotransferase (ALT/SGPT) 44, Alkaline Phosphatase 146H, Ammonia 35H, Total Protein 7.1, Albumin 2.6L, Globulin 4.5, Albumin/Globulin Ratio 0.6L, Alpha Fetoprotein [ Pending] Current Medications Medications (Trade) Dose Ordered Sig/Jose Route PRN Reason Start Time Stop Time Status Last Admin Dose Admin Acetaminophen (Tylenol) 650 mg Q4H PRN RECTAL Mild Pain (Pain Scale 1-3) 06/16/17 19:00 07/09/17 18:59 Albuterol/ Ipratropium (Albuterol/ Ipratropium) 3 ml Q4HRT PRN HHN sob 06/27/17 13:15 07/02/17 13:14 Alprazolam (Xanax) 2 mg DAILYPRN PRN ORAL For Anxiety 06/24/17 17:00 07/01/17 16:59 06/30/17 08:38 Carisoprodol (Soma) 350 mg Q6H PRN ORAL MUSCLE SPASMS 06/16/17 19:00 07/14/17 18:59 07/01/17 00:39 Carvedilol (Coreg) 25 mg EVERY 12 HOURS ORAL 06/16/17 21:00 07/04/17 11:29 07/01/17 09:29 Ceftriaxone Sodium 2 gm/ Dextrose 110 ml @ 220 mls/hr Q24H IVPB 06/29/17 20:00 07/06/17 19:59 06/30/17 20:27 Chlorhexidine Gluconate (Mireille-Hex 2%) 1 applic DAILY@2000 TOPIC 06/16/17 20:00 07/05/17 19:59 06/30/17 20:27 Clonidine HCl (Catapres Tab) 0.1 mg Q4H PRN ORAL bp over 160 syst 06/16/17 19:00 07/03/17 18:59 Dextrose (Dextrose 50%) STAT PRN IV Hypoglycemia 06/16/17 19:00 07/14/17 18:59 Docusate Sodium (Colace) 100 mg THREE TIMES A DAY ORAL 06/17/17 20:00 07/03/17 19:59 07/01/17 09:29 Ethambutol HCl (Myambutol) 1,000 mg 3XW ORAL 06/18/17 09:00 07/18/17 23:59 06/30/17 08:38 Hydromorphone HCl (Dilaudid) 1 mg Q4H PRN IVP Moderate Pain (Pain Scale 4-6) 06/27/17 18:00 07/04/17 17:59 06/29/17 17:49 Hydromorphone HCl (Dilaudid) 2 mg Q4H PRN IVP Severe Pain (Pain Scale 7-10) 06/27/17 21:00 07/04/17 20:59 07/01/17 09:28 Levofloxacin (Levaquin) 750 mg EVERY OTHER DAY@2000 ORAL 06/17/17 20:00 07/07/17 19:59 06/29/17 20:29 Lisinopril (Prinivil) 20 mg BID ORAL 06/17/17 09:00 07/04/17 08:59 07/01/17 09:29 Metronidazole (Flagyl) 500 mg Q8HR ORAL 06/17/17 22:00 07/07/17 21:59 07/01/17 05:04 Micafungin Sodium 100 mg/Dextrose 110 ml @ 110 mls/hr Q24H IVPB 07/01/17 20:00 07/08/17 19:59 Nitroglycerin (Ntg) 0.4 mg Q5M PRN SL Prn Chest Pain 06/16/17 18:15 07/04/17 09:14 Nitroglycerin (Ntg) 1 patch Q24H TDERMAL 06/17/17 11:30 07/04/17 11:29 06/30/17 13:26 Ondansetron HCl (Zofran) 4 mg Q6H PRN IVP Nausea & Vomiting 06/16/17 18:30 07/14/17 18:29 07/01/17 05:04 Pantoprazole (Protonix) 40 mg ACBREAKFAST ORAL 06/17/17 06:30 07/15/17 06:29 07/01/17 05:04 Polyethylene Glycol (Miralax) 17 gm DAILYPRN PRN ORAL Constipation 06/16/17 18:30 07/14/17 18:29 Promethazine HCl/ Codeine (Phenergan with Codeine) 5 ml Q4H PRN ORAL For Cough 06/16/17 18:30 07/05/17 18:29 06/27/17 22:44 Rifampin (Rifadin) 600 mg DAILY ORAL 06/25/17 17:00 07/25/17 16:59 07/01/17 09:29 Sevelamer Carbonate (Renvela) 2,400 mg THREE TIMES A DAY ORAL 06/16/17 18:45 07/16/17 18:44 07/01/17 09:29 Mariela Madrigal NP ([facility]) Jul 01, 2017 10:16
[2017-07-01] MEDS: ALPRAZolam 0.5mg tab ORAL PRN (10:34)
[2017-07-01] MEDS: Nitroglycerin Patch 0.4mg TDERMAL SCH (10:35)
--- NOTE | 2017-07-01 11:43 | Nephrology Progress Note ---
Assessment/Plan Problem List: (1) ESRD (end stage renal disease) on dialysis (2) Shortness of breath (3) Anemia Assessment worsenning Anemia ESRD , missed HD , admitted with high K and pulmonary edema Acute respiratory distress due to volume overload elevated troponin r/o ACS h/o COPD ? exacerbation HTN urgency Cardiomyopathy L AICD anemia of chronic kidney disease Hx of CVA Plan Plan: Low H&H - consider transfusion HD next 07/02 Transfused Phos binders BP meds adjustment Optimize cardiac status per orders Subjective ROS Limited/Unobtainable: No Constitutional: Reports: malaise Objective Objective Last 24 Hour Vital Signs Date Time Temp Pulse Resp B/P (MAP) Pulse Ox O2 Delivery O2 Flow Rate FiO2 07/01/17 10:35 131/76 07/01/17 09:29 131/76 07/01/17 09:29 80 131/76 07/01/17 07:53 97.8 80 20 131/76 99 97.8 07/01/17 07:27 Nasal Cannula 5.0 40 07/01/17 07:27 95 Nasal Cannula 5.0 40 07/01/17 07:26 85 18 Nasal Cannula 5.0 40 07/01/17 05:34 98.2 07/01/17 05:04 98.2 07/01/17 04:15 94 Nasal Cannula 5.0 07/01/17 04:00 98.2 86 19 112/65 92 98.2 07/01/17 01:09 98.1 07/01/17 00:39 98.1 07/01/17 00:39 98.1 07/01/17 00:00 98.1 84 19 126/70 98.1 06/30/17 23:36 92 Nasal Cannula 3.0 32 06/30/17 23:36 Nasal Cannula 3.0 32 06/30/17 23:36 73 18 Nasal Cannula 3.0 32 06/30/17 23:36 92 06/30/17 20:27 87 136/75 06/30/17 20:14 98.8 06/30/17 20:00 97.8 87 19 136/75 93 97.8 06/30/17 18:09 Room Air 06/30/17 18:07 110/68 06/30/17 18:00 98.8 85 20 116/67 Room Air 98.8 06/30/17 16:00 Nasal Cannula 5.0 06/30/17 16:00 98.1 79 19 110/68 95 98.1 06/30/17 14:00 98.1 92 2 127/68 Room Air 98.1 06/30/17 14:00 Room Air 06/30/17 13:26 99/60 06/30/17 12:00 97.6 72 19 99/60 92 97.6 06/30/17 12:00 Nasal Cannula 5.0 Intake and Output 06/30/17 07/01/17 19:00 07:00 Intake Total 360 ml 510 ml Output Total 3000 ml Balance -2640 ml 510 ml Intake Oral 360 ml IV Total 110 ml Other 400 ml Hemodialysis UF 3000 ml # Voids 2 # Bowel Movements 1 Laboratory Tests 07/01/17 05:15: Prothrombin Time 32.4H, Prothromb Time International Ratio 3.1H, Sodium Level 144, Potassium Level 3.8, Chloride Level 99, Carbon Dioxide Level 35H, Anion Gap 10, Blood Urea Nitrogen 32H, Creatinine 9.4H, Estimat Glomerular Filtration Rate 7.0, Glucose Level 127H, Calcium Level 8.8, Total Bilirubin 1.1H, Direct Bilirubin 0.7H, Aspartate Amino Transf (AST/SGOT) 89H, Alanine Aminotransferase (ALT/SGPT) 44, Alkaline Phosphatase 146H, Ammonia 35H, Total Protein 7.1, Albumin 2.6L, Globulin 4.5, Albumin/Globulin Ratio 0.6L, Alpha Fetoprotein [ Pending] Height (Feet): 5 Height (Inches): 7.00 Weight (Pounds): 237 General Appearance: no apparent distress Objective no change LIAM MONTELONGO Jul 01, 2017 11:42
[2017-07-01 11:49] VITALS: BP 143/85
--- NOTE | 2017-07-01 14:49 | Infectious Diseases Prog Note ---
Assessment/Plan Assessment/Plan A: Cavitary PNA. SCx: Neg ( m/l necrotizing Pneum, r/o Fungal, r/o TB ) ; improving -CT chest 06/25: Since the prior study of 06/15/2017, and. From further reduction in size of previously demonstrated thick walled right upper lobe cavitary mass. This was previously thought to most likely represent a cavitary inflammatory mass, and the interim reduction in size certainly supports that. Much less likely a cavitary neoplasm, but follow-up to resolution is recommended. Markedly improved parenchymal disease bilaterally, since the previous study. Nonetheless , extensive atelectasis and groundglass consolidation persists. Persistent small right pleural effusion, smaller than on the prior study. Resolved left pleural effusion 6 mm nodular opacity in the right upper lobe, not evident previously but likely obscured by surrounding consolidated lung parenchyma. This should be followed up in 6 months to one year depending on results of interim follow-up exams -CXR 06/21: Persistent but slightly decreased size of known right lung cavitary lesion. Persistent extensive interstitial and bilateral airspace opacities. -sp cx 06/05, 06/06 normal resp jordin; repeat sp cx 06/18 PsA (singh S) + Providencia stuarti (S Ceftriaxone, R Cipro) (likely superinfection/HCAP) Rsp status improved but on 06/[address] his condition worsen T-SPOT :Neg AFB x 3 : Neg MTB PCR x2 : neg cryptococcus Ag, Histoplams mycelial Ab , Blastomyces ab : neg ; histoplasma yeast ab (not able to be done due to anticomplemenatry activity) -Cocci, Asp ag p -Fungitell + 144 06/21 Xray : improvement of cavity CT chest 06/15: Slightly smaller (6 cm diameter ) but mostly unchanged cavitary lesion in the right lung, previously thought to represent a cavitating inflammatory process. Lung abscess is certainly a possibility. Fairly extensive bilateral pulmonary parenchymal consolidation, slightly increased from previous exam of 06/05/2017. Likely a combination of pulmonary edema and pneumonia. Small right and trace left pleural effusion, new/increased from the previous study. CT 06/05: 7.8 x 5.3 x 6.6 cm dense opacity in the posterior inferior right upper lobe with a central cavitation. Chest x-ray : right mid lung infiltrate, possible cavitation Rule out tuberculosis, fungal infection, or necrotizing pneumonia. CRP 14 Influenza negative Low-grade fever, SP Status post leukocytosis. Transaminitis ,? 2/2 Hep C cirrhosis- no active Hep C as VL not detected -CT abd/p: Evidence of hepatic cirrhosis. Hepatosplenomegaly. evidence of generalized anasarca, with pleural fluid and generalized subcutaneous edema. Cholelithiasis, also previously reported. Possible diverticulosis. No evidence of diverticulitis US Abd : Cholelithiasis. There is gallbladder wall thickening, likely related to hemodynamic abnormalities Splenomegaly. Evidence of hepatic cirrhosis HIV : NEG Hep Panel B neg , C Ab : +ve , VL not detected leukopenia and TCP 2/2 splenomegaly Seizure disorder History of CVA History of pacemaker placement Hyperlipidemia Hypertension COPD/asthma End-stage renal disease, on hemodialysis Diabetes Anxiety Anemia Echo, ejection fraction 45% to 50%. PLAN: -Continue Ceftriaxone #10/10 for superimposed p. stuarti PNA Continue Micafungin abx d#17 (switched from voriconazole given drug-drug interaction with Rifampin) for possible Aspergillosis pending cultures and fungal serologies -Continue Flagyl (in addition with Levaquin will provide anaerobic coverage for possible aspiration/cavitary and now PsA PNA as no isolation of resistant organisms); abx d# 29/35-42 Continue empiric Ethambutol and Levaquin d# 19 empiric for TB pending cultures -Cotninue Rifampin 600mg qd #7 -monitor LFTs; if continues to increase , will hold 06/28 SP Amikacin #1 3/ SP PO Voriconazole #3 3/16 SP Liposomal Ampho #8 3/ SP IV Vancomycin #14, Meropenem #5 3/ SP Zosyn d# 10 3/4 SP Zithromax D# 6 f/u sputum culture (, fungal, and AFB x3). f/u Coccidioidal ,Galactomannan and Fungitell, Histoplasma ag urine -daily CMP Airborne isolation for now Disposition per Dept of Public Health Subjective Allergies: Coded Allergies: IODINE AND IODIDE CONTAINING PRODUC (Verified Allergy, Mild, itching and pruritis, 06/25/17) Uncoded Allergies: CONTRAST/DYE (Allergy, Intermediate, PRURITIS AND ITCHING, 06/25/17) Subjective afebrile no leukocytosis mild rise in AST and Tbili Objective Vital Signs Last 24 Hour Vital Signs Date Time Temp Pulse Resp B/P (MAP) Pulse Ox O2 Delivery O2 Flow Rate FiO2 07/01/17 11:49 98.8 77 20 143/85 99 98.8 07/01/17 10:35 131/76 07/01/17 09:29 131/76 07/01/17 09:29 80 131/76 07/01/17 07:53 97.8 80 20 131/76 99 97.8 07/01/17 07:27 Nasal Cannula 5.0 40 07/01/17 07:27 95 Nasal Cannula 5.0 40 07/01/17 07:26 85 18 Nasal Cannula 5.0 40 07/01/17 05:34 98.2 07/01/17 05:04 98.2 07/01/17 04:15 94 Nasal Cannula 5.0 07/01/17 04:00 98.2 86 19 112/65 92 98.2 07/01/17 01:09 98.1 07/01/17 00:39 98.1 07/01/17 00:39 98.1 07/01/17 00:00 98.1 84 19 126/70 98.1 06/30/17 23:36 92 Nasal Cannula 3.0 32 06/30/17 23:36 Nasal Cannula 3.0 32 06/30/17 23:36 73 18 Nasal Cannula 3.0 32 06/30/17 23:36 92 06/30/17 20:27 87 136/75 06/30/17 20:14 98.8 06/30/17 20:00 97.8 87 19 136/75 93 97.8 06/30/17 18:09 Room Air 06/30/17 18:07 110/68 06/30/17 18:00 98.8 85 20 116/67 Room Air 98.8 06/30/17 16:00 Nasal Cannula 5.0 06/30/17 16:00 98.1 79 19 110/68 95 98.1 Height (Feet): 5 Height (Inches): 7.00 Weight (Pounds): 237 Objective General Appearance: WD/WN, alert, moderate distress EENT: PERRL/EOMI, normal ENT inspection Neck: non-tender, normal alignment, supple, normal inspection Cardiovascular: normal peripheral pulses, normal rate, regular rhythm, no gallop/murmur, no JVD Respiratory/Chest: Non rebreather; respiratory distress, crackles/rales, rhonchi - bilaterally, expiratory wheezing Abdomen: normal bowel sounds, non tender, soft, no organomegaly, no mass Extremities: normal range of motion Neurologic: slabber 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, no motor/sensory deficits Skin: normal pigmentation, warm/dry Laboratory Tests Test 07/01/17 05:15 Prothrombin Time 32.4 SEC (9.30-11.50) H Prothromb Time International Ratio 3.1 (0.9-1.1) H Sodium Level 144 MMOL/L (136-145) Potassium Level 3.8 MMOL/L (3.5-5.1) Chloride Level 99 MMOL/L (98-107) Carbon Dioxide Level 35 MMOL/L (21-32) H Anion Gap 10 mmol/L (5-15) Blood Urea Nitrogen 32 mg/dL (7-18) H Creatinine 9.4 MG/DL (0.55-1.30) H Estimat Glomerular Filtration Rate 7.0 mL/min (>60) Glucose Level 127 MG/DL (74-106) H Calcium Level 8.8 MG/DL (8.5-10.1) Total Bilirubin 1.1 MG/DL (0.2-1.0) H Direct Bilirubin 0.7 MG/DL (0.0-0.3) H Aspartate Amino Transf (AST/SGOT) 89 U/L (15-37) H Alanine Aminotransferase (ALT/SGPT) 44 U/L (12-78) Alkaline Phosphatase 146 U/L (46-116) H Ammonia 35 umol/L (11-32) H Total Protein 7.1 G/DL (6.4-8.2) Albumin 2.6 G/DL (3.4-5.0) L Globulin 4.5 g/dL Albumin/Globulin Ratio 0.6 (1.0-2.7) L Alpha Fetoprotein Pending Current Medications Medications (Trade) Dose Ordered Sig/Jose Route PRN Reason Start Time Stop Time Status Last Admin Dose Admin Acetaminophen (Tylenol) 650 mg Q4H PRN RECTAL Mild Pain (Pain Scale 1-3) 06/16/17 19:00 07/09/17 18:59 Albuterol/ Ipratropium (Albuterol/ Ipratropium) 3 ml Q4HRT PRN HHN sob 06/27/17 13:15 07/02/17 13:14 Alprazolam (Xanax) 2 mg DAILYPRN PRN ORAL For Anxiety 06/24/17 17:00 07/01/17 16:59 07/01/17 10:34 Carisoprodol (Soma) 350 mg Q6H PRN ORAL MUSCLE SPASMS 06/16/17 19:00 07/14/17 18:59 07/01/17 00:39 Carvedilol (Coreg) 25 mg EVERY 12 HOURS ORAL 06/16/17 21:00 07/04/17 11:29 07/01/17 09:29 Ceftriaxone Sodium 2 gm/ Dextrose 110 ml @ 220 mls/hr Q24H IVPB 06/29/17 20:00 07/06/17 19:59 06/30/17 20:27 Chlorhexidine Gluconate (Mireille-Hex 2%) 1 applic DAILY@1999 TOPIC 06/16/17 20:00 07/05/17 19:59 06/30/17 20:27 Clonidine HCl (Catapres Tab) 0.1 mg Q4H PRN ORAL bp over 160 syst 06/16/17 19:00 07/03/17 18:59 Dextrose (Dextrose 50%) STAT PRN IV Hypoglycemia 06/16/17 19:00 07/14/17 18:59 Docusate Sodium (Colace) 100 mg THREE TIMES A DAY ORAL 06/17/17 20:00 07/03/17 19:59 07/01/17 14:26 Ethambutol HCl (Myambutol) 1,000 mg 3XW ORAL 06/18/17 09:00 07/18/17 23:59 06/30/17 08:38 Hydromorphone HCl (Dilaudid) 1 mg Q4H PRN IVP Moderate Pain (Pain Scale 4-6) 06/27/17 18:00 07/04/17 17:59 06/29/17 17:49 Hydromorphone HCl (Dilaudid) 2 mg Q4H PRN IVP Severe Pain (Pain Scale 7-10) 06/27/17 21:00 07/04/17 20:59 07/01/17 09:28 Levofloxacin (Levaquin) 750 mg EVERY OTHER DAY@1999 ORAL 06/17/17 20:00 07/07/17 19:59 06/29/17 20:29 Lisinopril (Prinivil) 20 mg BID ORAL 06/17/17 09:00 07/04/17 08:59 07/01/17 09:29 Metronidazole (Flagyl) 500 mg Q8HR ORAL 06/17/17 22:00 07/07/17 21:59 07/01/17 14:26 Micafungin Sodium 100 mg/Dextrose 110 ml @ 110 mls/hr Q24H IVPB 07/01/17 20:00 07/08/17 19:59 Nitroglycerin (Ntg) 0.4 mg Q5M PRN SL Prn Chest Pain 06/16/17 18:15 07/04/17 09:14 Nitroglycerin (Ntg) 1 patch Q24H TDERMAL 06/17/17 11:30 07/04/17 11:29 07/01/17 10:35 Ondansetron HCl (Zofran) 4 mg Q6H PRN IVP Nausea & Vomiting 06/16/17 18:30 07/14/17 18:29 07/01/17 05:04 Pantoprazole (Protonix) 40 mg ACBREAKFAST ORAL 06/17/17 06:30 07/15/17 06:29 07/01/17 05:04 Polyethylene Glycol (Miralax) 17 gm DAILYPRN PRN ORAL Constipation 06/16/17 18:30 07/14/17 18:29 Promethazine HCl/ Codeine (Phenergan with Codeine) 5 ml Q4H PRN ORAL For Cough 06/16/17 18:30 07/05/17 18:29 06/27/17 22:44 Rifampin (Rifadin) 600 mg DAILY ORAL 06/25/17 17:00 07/25/17 16:59 07/01/17 09:29 Sevelamer Carbonate (Renvela) 2,400 mg THREE TIMES A DAY ORAL 06/16/17 18:45 07/16/17 18:44 07/01/17 14:25 Aleja Crocker M.D. Jul 01, 2017 14:49
[2017-07-01 16:05] VITALS: BP 114/71
--- NOTE | 2017-07-01 18:49 | Internal Med Progress Note ---
Subjective Date of Service: Jul 01, 2017 Physician Name ElliZoey Attending Physician Chaitanya Weinstein MD Current Medications Medications (Trade) Dose Ordered Sig/Jose Route PRN Reason Start Time Stop Time Status Last Admin Dose Admin Acetaminophen (Tylenol) 650 mg Q4H PRN RECTAL Mild Pain (Pain Scale 1-3) 06/16/17 19:00 07/09/17 18:59 Albuterol/ Ipratropium (Albuterol/ Ipratropium) 3 ml Q4HRT PRN HHN sob 06/27/17 13:15 07/02/17 13:14 Carisoprodol (Soma) 350 mg Q6H PRN ORAL MUSCLE SPASMS 06/16/17 19:00 07/14/17 18:59 07/01/17 00:39 Carvedilol (Coreg) 25 mg EVERY 12 HOURS ORAL 06/16/17 21:00 07/04/17 11:29 07/01/17 09:29 Ceftriaxone Sodium 2 gm/ Dextrose 110 ml @ 220 mls/hr Q24H IVPB 06/29/17 20:00 07/06/17 19:59 06/30/17 20:27 Chlorhexidine Gluconate (Mireille-Hex 2%) 1 applic DAILY@2000 TOPIC 06/16/17 20:00 07/05/17 19:59 06/30/17 20:27 Clonidine HCl (Catapres Tab) 0.1 mg Q4H PRN ORAL bp over 160 syst 06/16/17 19:00 07/03/17 18:59 Dextrose (Dextrose 50%) STAT PRN IV Hypoglycemia 06/16/17 19:00 07/14/17 18:59 Docusate Sodium (Colace) 100 mg THREE TIMES A DAY ORAL 06/17/17 20:00 07/03/17 19:59 07/01/17 17:52 Ethambutol HCl (Myambutol) 1,000 mg 3XW ORAL 06/18/17 09:00 07/18/17 23:59 06/30/17 08:38 Hydromorphone HCl (Dilaudid) 1 mg Q4H PRN IVP Moderate Pain (Pain Scale 4-6) 06/27/17 18:00 07/04/17 17:59 06/29/17 17:49 Hydromorphone HCl (Dilaudid) 2 mg Q4H PRN IVP Severe Pain (Pain Scale 7-10) 06/27/17 21:00 07/04/17 20:59 07/01/17 18:37 Levofloxacin (Levaquin) 750 mg EVERY OTHER DAY@2000 ORAL 06/17/17 20:00 07/07/17 19:59 06/29/17 20:29 Lisinopril (Prinivil) 20 mg BID ORAL 06/17/17 09:00 07/04/17 08:59 07/01/17 09:29 Metronidazole (Flagyl) 500 mg Q8HR ORAL 06/17/17 22:00 07/07/17 21:59 07/01/17 14:26 Micafungin Sodium 100 mg/Dextrose 110 ml @ 110 mls/hr Q24H IVPB 07/01/17 20:00 07/08/17 19:59 Nitroglycerin (Ntg) 0.4 mg Q5M PRN SL Prn Chest Pain 06/16/17 18:15 07/04/17 09:14 Nitroglycerin (Ntg) 1 patch Q24H TDERMAL 06/17/17 11:30 07/04/17 11:29 07/01/17 10:35 Ondansetron HCl (Zofran) 4 mg Q6H PRN IVP Nausea & Vomiting 06/16/17 18:30 07/14/17 18:29 07/01/17 05:04 Pantoprazole (Protonix) 40 mg ACBREAKFAST ORAL 06/17/17 06:30 07/15/17 06:29 07/01/17 05:04 Polyethylene Glycol (Miralax) 17 gm DAILYPRN PRN ORAL Constipation 06/16/17 18:30 07/14/17 18:29 Promethazine HCl/ Codeine (Phenergan with Codeine) 5 ml Q4H PRN ORAL For Cough 06/16/17 18:30 07/05/17 18:29 06/27/17 22:44 Rifampin (Rifadin) 600 mg DAILY ORAL 06/25/17 17:00 07/25/17 16:59 07/01/17 09:29 Sevelamer Carbonate (Renvela) 2,400 mg THREE TIMES A DAY ORAL 06/16/17 18:45 07/16/17 18:44 07/01/17 17:52 Allergies: Coded Allergies: IODINE AND IODIDE CONTAINING PRODUC (Verified Allergy, Mild, itching and pruritis, 06/25/17) Uncoded Allergies: CONTRAST/DYE (Allergy, Intermediate, PRURITIS AND ITCHING, 06/25/17) ROS Limited/Unobtainable: No Constitutional: Reports: no symptoms HEENT: Reports: no symptoms Cardiovascular: Reports: no symptoms Respiratory: Reports: shortness of breath Gastrointestinal/Abdominal: Reports: no symptoms Genitourinary: Reports: no symptoms Neurologic/Psychiatric: Reports: no symptoms Subjective 57 YO M admitted with chest pain and shortness of breath. Now pneumonia and candelaria heart failure. Back on nasal canula. Cover for Int Misbah-Dr Weinstein. Hemodialysis today 06/30/17 Objective Last Vital Signs Date Time Temp Pulse Resp B/P (MAP) Pulse Ox O2 Delivery O2 Flow Rate FiO2 07/01/17 17:53 114/71 07/01/17 16:05 98.0 88 20 99 98.0 07/01/17 07:27 Nasal Cannula 5.0 40 Laboratory Tests Test 07/01/17 05:15 Prothrombin Time 32.4 SEC (9.30-11.50) H Prothromb Time International Ratio 3.1 (0.9-1.1) H Sodium Level 144 MMOL/L (136-145) Potassium Level 3.8 MMOL/L (3.5-5.1) Chloride Level 99 MMOL/L (98-107) Carbon Dioxide Level 35 MMOL/L (21-32) H Anion Gap 10 mmol/L (5-15) Blood Urea Nitrogen 32 mg/dL (7-18) H Creatinine 9.4 MG/DL (0.55-1.30) H Estimat Glomerular Filtration Rate 7.0 mL/min (>60) Glucose Level 127 MG/DL (74-106) H Calcium Level 8.8 MG/DL (8.5-10.1) Total Bilirubin 1.1 MG/DL (0.2-1.0) H Direct Bilirubin 0.7 MG/DL (0.0-0.3) H Aspartate Amino Transf (AST/SGOT) 89 U/L (15-37) H Alanine Aminotransferase (ALT/SGPT) 44 U/L (12-78) Alkaline Phosphatase 146 U/L (46-116) H Ammonia 35 umol/L (11-32) H Total Protein 7.1 G/DL (6.4-8.2) Albumin 2.6 G/DL (3.4-5.0) L Globulin 4.5 g/dL Albumin/Globulin Ratio 0.6 (1.0-2.7) L Alpha Fetoprotein Pending Intake and Output 06/30/17 07/01/17 19:00 07:00 Intake Total 360 ml 510 ml Output Total 3000 ml Balance -2640 ml 510 ml Intake Oral 360 ml IV Total 110 ml Other 400 ml Hemodialysis UF 3000 ml # Voids 2 # Bowel Movements 1 Objective General Appearance: WD/WN, alert, moderate distress EENT: PERRL/EOMI, normal ENT inspection Neck: non-tender, normal alignment, supple, normal inspection Cardiovascular: normal peripheral pulses, normal rate, regular rhythm, no gallop/murmur, no JVD Respiratory/Chest: Nasal canula; respiratory distress, crackles/rales, rhonchi - bilaterally, expiratory wheezing Abdomen: normal bowel sounds, non tender, soft, no organomegaly, no mass Extremities: normal range of motion Neurologic: corporate safety coordinator 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 Currently on nasal canula. See pulmonay note. (2) Pleuritic chest pain (3) Hemoptysis Assessment & Plan: Due to pneumonia (4) Pneumonia Assessment & Plan: Providencia and pseudamonas. RUL and cavitary. Concerning for TB. Await AFB cultures-see ID consult. Continue vanco and ethambutol per ID. Continue rocephin, micafungin, flagyl, amikacin, levaquin, and rifampin (5) Shortness of breath (6) ESRD (end stage renal disease) on dialysis Assessment & Plan: See nephrology note. Hemodialysis 06/30/17 per nephrology (7) Hyperkalemia Assessment & Plan: Due to renal failure. Hemodialysis 06/12/17 per nephrology (8) COPD (chronic obstructive pulmonary disease) (9) HTN (hypertension) Assessment & Plan: Continue coreg and lisinopril. (10) CHF (congestive heart failure) (11) Elevated troponin Assessment & Plan: ?due to renal failure? See cardiology note. (12) Intractable abdominal pain Assessment & Plan: See surgery note. Await CT abdomen (13) Conjunctivitis Assessment & Plan: start tobramycin Status: ZOEY Ferro Jul 01, 2017 18:49
[2017-07-01 20:11] VITALS: BP 121/79
[2017-07-01] MEDS: cefTRIAXone 2 GM in D5W 110 ML IVPB SCH (20:34)
[2017-07-01] MEDS: Dyna-Hex 2% Top Sol 2oz TOPIC SCH (20:35)
[2017-07-01] MEDS: Micafungin 100 MG in D5W 110 ML IVPB SCH (21:37)
--- NOTE | 2017-07-01 23:17 | General Progress Note ---
Assessment/Plan Assessment/Plan Assessment - Anemia, multifactorial - OB (+) Stool - w/u deferred due to respiratory status - ESRD/HD - DM - HTN - COPD - Cavitary lung disease - gallstones - RUQ TTP and improving LFT - abnormal GB ultrasound - Thrombocytopenia - cirrhotic appearing liver on CT - Hepatitis C Ab (+)/ PCR (-) - Poor prognosis Recommendations - PO as tolerated - monitor LFT - slightly elevated - check AFP and Ammonia - abx per ID - transfuse PRN - Acid blockade - Defer EGD/Colon a this time Subjective Allergies: Coded Allergies: IODINE AND IODIDE CONTAINING PRODUC (Verified Allergy, Mild, itching and pruritis, 06/25/17) Uncoded Allergies: CONTRAST/DYE (Allergy, Intermediate, PRURITIS AND ITCHING, 06/25/17) Subjective above noted no events overnight tolerating PO weak Objective Last 24 Hour Vital Signs Date Time Temp Pulse Resp B/P (MAP) Pulse Ox O2 Delivery O2 Flow Rate FiO2 07/01/17 22:59 98.2 07/01/17 22:59 93 07/01/17 20:34 85 121/79 07/01/17 20:11 98.2 85 20 121/79 99 Room Air 98.2 07/01/17 20:11 99 Nasal Cannula 5.0 07/01/17 19:31 92 Nasal Cannula 5.0 40 07/01/17 19:31 Nasal Cannula 5.0 40 07/01/17 19:31 81 18 Nasal Cannula 5.0 40 07/01/17 17:53 114/71 07/01/17 16:05 98.0 88 20 114/71 99 98.0 07/01/17 11:49 98.8 77 20 143/85 99 98.8 07/01/17 10:35 131/76 07/01/17 09:29 131/76 07/01/17 09:29 80 131/76 07/01/17 07:53 97.8 80 20 131/76 99 97.8 07/01/17 07:27 Nasal Cannula 5.0 40 07/01/17 07:27 95 Nasal Cannula 5.0 40 07/01/17 07:26 85 18 Nasal Cannula 5.0 40 07/01/17 05:34 98.2 07/01/17 05:04 98.2 07/01/17 04:15 94 Nasal Cannula 5.0 07/01/17 04:00 98.2 86 19 112/65 92 98.2 07/01/17 01:09 98.1 07/01/17 00:39 98.1 07/01/17 00:39 98.1 07/01/17 00:00 98.1 84 19 126/70 98.1 06/30/17 23:36 92 Nasal Cannula 3.0 32 06/30/17 23:36 Nasal Cannula 3.0 32 06/30/17 23:36 73 18 Nasal Cannula 3.0 32 06/30/17 23:36 92 Intake and Output 06/30/17 07/01/17 19:00 07:00 Intake Total 360 ml 510 ml Output Total 3000 ml Balance -2640 ml 510 ml Intake Oral 360 ml IV Total 110 ml Other 400 ml Hemodialysis UF 3000 ml # Voids 2 # Bowel Movements 1 Laboratory Tests 07/01/17 05:15: Prothrombin Time 32.4H, Prothromb Time International Ratio 3.1H, Sodium Level 144, Potassium Level 3.8, Chloride Level 99, Carbon Dioxide Level 35H, Anion Gap 10, Blood Urea Nitrogen 32H, Creatinine 9.4H, Estimat Glomerular Filtration Rate 7.0, Glucose Level 127H, Calcium Level 8.8, Total Bilirubin 1.1H, Direct Bilirubin 0.7H, Aspartate Amino Transf (AST/SGOT) 89H, Alanine Aminotransferase (ALT/SGPT) 44, Alkaline Phosphatase 146H, Ammonia 35H, Total Protein 7.1, Albumin 2.6L, Globulin 4.5, Albumin/Globulin Ratio 0.6L, Alpha Fetoprotein [ Pending] Height (Feet): 5 Height (Inches): 7.00 Weight (Pounds): 237 Objective WDWN AA Man NCAT supple CTA RRR Soft mildly distended, (+) improved RUQ TTP, (+) trunk edema (+) leg edema PERCY JOYNER Jul 01, 2017 23:17
[2017-07-02] VITALS (8 sets, daily range): BP systolic 122–155; BP diastolic 71–91
[2017-07-02] MEDS: metroNIDAZOLE 500mg tab ORAL SCH ×3 (05:26→21:25)
[2017-07-02 07:12] LABS: HEMATOCRIT 25.6 % (42.0-52.0); HEMOGLOBIN 7.9 G/DL (14.2-18.0); MEAN CORPUSCULAR VOLUME 101 FL (80-99); PLATELET COUNT 86 K/UL (150-450); RED BLOOD COUNT 2.55 M/UL (4.70-6.10); RED CELL DISTRIBUTION WIDTH 19.8 % (11.6-14.8)
[2017-07-02 07:25] LABS: ALANINE AMINOTRANSFERASE 55 U/L (12-78); ALBUMIN 2.5 G/DL (3.4-5.0); ALBUMIN/GLOBULIN RATIO 0.5 (1.0-2.7); ALKALINE PHOSPHATASE 137 U/L (46-116); ANION GAP 12 mmol/L (5-15); ASPARTATE AMINO TRANSFERASE 96 U/L (15-37); BILIRUBIN,TOTAL 1.4 MG/DL (0.2-1.0); BLOOD UREA NITROGEN 40 mg/dL (7-18); CARBON DIOXIDE 34 MMOL/L (21-32); CHLORIDE 97 MMOL/L (98-107); CREATININE 10.9 MG/DL (0.55-1.30); POTASSIUM 3.9 MMOL/L (3.5-5.1); SODIUM 142 MMOL/L (136-145)
[2017-07-02 07:28] LABS: BILIRUBIN,DIRECT 0.8 MG/DL (0.0-0.3)
[2017-07-02] MEDS: Lisinopril 20mg tab ORAL SCH ×2 (08:24→17:33)
[2017-07-02] MEDS: Docusate 100mg cap ORAL SCH ×3 (08:24→17:32)
[2017-07-02] MEDS: Carvedilol 25mg Tab ORAL SCH ×2 (08:25→21:22)
--- NOTE | 2017-07-02 10:10 | Pulmonology Progress Note ---
Assessment/Plan Assessment/Plan ASSESSMENT R upper lobe cavitary mass Necrotizing PNA with cavitating lesion RUL r/o TB Acute hypoxemic RF requiring BiPAP -resolved Pleuritic chest pain likely due to necrotizing PNA . Elevated troponin Systolic CHF ( recent negative reversible perfusion defect.) cardiomyopathy pulmonary edema Asthma. End-stage renal disease, on hemodialysis. Hypertensive urgency . Anemia of chronic disease. History of intracardiac defibrillator placement. Prior history of cerebrovascular accident. ESRD on HD thrombocytopenia transaminitis hepatitis C liver cirrhosis cholelithiasis PLAN OF CARE MS resp isolation CT chest 06/26 -Further reduction in size of previously demonstrated thick walled right upper lobe cavitary mass. Currently measures 6 cm AP by 5.2 cm transverse by 3.9 cm craniocaudad, previously approximately 7.8 x 4.9 x 5.2 cm. This was previously thought to most likely represent a cavitary inflammatory mass, and the interim reduction in size certainly supports that. Much less likely a cavitary neoplasm CT chest 06/15- Slightly smaller but mostly unchanged cavitary lesion in the right lung, previously thought to represent a cavitating inflammatory process. Lung abscess is certainly a possibility initial CT chest with evidence of necrotizing PNA with cavitary lesion - 7.8 x 5.3 x 6.6 cm dense opacity in the posterior inferior right upper lobe with a central cavitation. T-SPOT-Neg ; sputum AFB x 3- Neg MTB by PCR x2 -neg cryptococcus Ag, Histo Ab , Blasto ab-all neg ; Cocci, Asp ag pending sputum cx + Providencia/Pseudomonas Ethambutol , Levaquin and Rifaximin, monitor LFT-down to normal, Flagyl added by ID for anaerobic coverage fup with fungal serology and AFB culture Micafungin to cover for possible Aspergilloses O2 titrate, pulm toilet BiPAP at HS and prn HIV negative blood cx negative, influenza screen negative a/tussive prn cardio follows BP management with BB [facility] and [facility] medical management for SHF nephro follows HD as per nephro monitor renal parameters, lytes, avoid nephrotoxic heme follows transfuse prn with goal to keep Hgb above 7 anemia w/up c/w anemia of chronic disease and multifactorial as per GI stool OB+ x1 monitor PLT count- better off Heparin SCD Venous Duplex BLE- negative GI follows hep panel + hep C, no viral load , thus no active infection cirrhosis likely 2 to hep C abd US + cholelithiasis, HSM, surgeon consulted CT A/P with hepatic cirrhosis, HSM, anasarca and cholelithiasis, no evidence of acute cholecystis, no surgical intervention necessary per GI defer EGD/colon for now add sleeping pill cont resp isolation disposition after [facility] clearance case discussed and evaluated by supervising physician Subjective Allergies: Coded Allergies: IODINE AND IODIDE CONTAINING PRODUC (Verified Allergy, Mild, itching and pruritis, 06/25/17) Uncoded Allergies: CONTRAST/DYE (Allergy, Intermediate, PRURITIS AND ITCHING, 06/25/17) Subjective on resp isolation for possible TB no SOB no CP sitting in the chair on O2 via NC afebrile, no leukocytosis HD today requesting sleeping pill for night unable to sleep Objective Last 24 Hour Vital Signs Date Time Temp Pulse Resp B/P (MAP) Pulse Ox O2 Delivery O2 Flow Rate FiO2 07/02/17 08:25 74 146/88 07/02/17 08:24 146/88 07/02/17 08:00 97.9 74 19 146/88 96 97.9 07/02/17 06:54 97.7 07/02/17 06:30 91 18 Nasal Cannula 5.0 07/02/17 06:30 91 Nasal Cannula 5.0 07/02/17 06:30 Nasal Cannula 5.0 07/02/17 04:00 97.7 80 18 137/71 91 97.7 07/02/17 03:37 98.2 07/02/17 03:06 98.2 07/02/17 01:29 98.2 07/02/17 00:30 98.2 07/02/17 00:00 92 Room Air 07/02/17 00:00 97.3 75 20 132/75 92 Room Air 97.3 07/01/17 22:59 98.2 07/01/17 22:59 93 07/01/17 20:34 85 121/79 07/01/17 20:11 98.2 85 20 121/79 99 Room Air 98.2 07/01/17 20:11 99 Nasal Cannula 5.0 07/01/17 19:31 92 Nasal Cannula 5.0 40 07/01/17 19:31 Nasal Cannula 5.0 40 07/01/17 19:31 81 18 Nasal Cannula 5.0 40 07/01/17 17:53 114/71 07/01/17 16:05 98.0 88 20 114/71 99 98.0 07/01/17 11:49 98.8 77 20 143/85 99 98.8 07/01/17 10:35 131/76 Intake and Output 07/01/17 07/02/17 19:00 07:00 Intake Total 360 ml 600 ml Balance 360 ml 600 ml Intake Oral 360 ml 380 ml IV Total 220 ml # Bowel Movements 1 Objective General Appearance: no acute distress, obese, awake, alert, oriented x4 AA male , HEENT: normocephalic, atraumatic, anicteric Respiratory/Chest: decreased breath sounds, ICD LT chest Cardiovascular: normal rate, LUE AV shunt + bruit/thrill, L neck IJ CL intact Abdomen: normal bowel sounds, soft, non tender, obese Extremities: +1 edema BLE Neurologic/Psychiatric: alert, responsive Musculoskeletal: normal muscle bulk Laboratory Tests 07/02/17 05:25: White Blood Count 7.0, Red Blood Count 2.55L, Hemoglobin 7.9L, Hematocrit 25.6L , Mean Corpuscular Volume 101H, Mean Corpuscular Hemoglobin 31.1H, Mean Corpuscular Hemoglobin Concent 30.9L, Red Cell Distribution Width 19.8H, Platelet Count 86L, Mean Platelet Volume 6.8, Neutrophils (%) (Auto) , Lymphocytes (%) (Auto) , Monocytes (%) (Auto) , Eosinophils (%) (Auto) , Basophils (%) (Auto) , Differential Total Cells Counted 100, Neutrophils % ( Manual) 64, Lymphocytes % (Manual) 21, Monocytes % (Manual) 15H, Eosinophils % ( Manual) 0, Basophils % (Manual) 0, Band Neutrophils 0, Nucleated Red Blood Cells 1, Platelet Estimate DecreasedL, Platelet Morphology Normal, Polychromasia 2+, Hypochromasia 1+, Anisocytosis 1+, Macrocytosis 1+, Sodium Level 142, Potassium Level 3.9, Chloride Level 97L, Carbon Dioxide Level 34H, Anion Gap 12, Blood Urea Nitrogen 40H, Creatinine 10.9H, Estimat Glomerular Filtration Rate 5.9, Glucose Level 99, Calcium Level 9.0, Total Bilirubin 1.4H, Direct Bilirubin 0.8H, Aspartate Amino Transf (AST/SGOT) 96H, Alanine Aminotransferase (ALT/SGPT) 55, Alkaline Phosphatase 137H, Total Protein 7.1, Albumin 2.5L, Globulin 4.6, Albumin/Globulin Ratio 0.5L Current Medications Medications (Trade) Dose Ordered Sig/Jose Route PRN Reason Start Time Stop Time Status Last Admin Dose Admin Acetaminophen (Tylenol) 650 mg Q4H PRN RECTAL Mild Pain (Pain Scale 1-3) 06/16/17 19:00 07/09/17 18:59 Albuterol/ Ipratropium (Albuterol/ Ipratropium) 3 ml Q4HRT PRN HHN sob 06/27/17 13:15 07/02/17 13:14 Alprazolam (Xanax) 2 mg DAILYPRN PRN ORAL For Anxiety 07/02/17 08:45 07/09/17 08:44 Carisoprodol (Soma) 350 mg Q6H PRN ORAL MUSCLE SPASMS 06/16/17 19:00 07/14/17 18:59 07/02/17 08:25 Carvedilol (Coreg) 25 mg EVERY 12 HOURS ORAL 06/16/17 21:00 07/04/17 11:29 07/02/17 08:25 Ceftriaxone Sodium 2 gm/ Dextrose 110 ml @ 220 mls/hr Q24H IVPB 06/29/17 20:00 07/06/17 19:59 07/01/17 20:34 Chlorhexidine Gluconate (Mireille-Hex 2%) 1 applic DAILY@2000 TOPIC 06/16/17 20:00 07/05/17 19:59 07/01/17 20:35 Clonidine HCl (Catapres Tab) 0.1 mg Q4H PRN ORAL bp over 160 syst 06/16/17 19:00 07/03/17 18:59 Dextrose (Dextrose 50%) STAT PRN IV Hypoglycemia 06/16/17 19:00 07/14/17 18:59 Docusate Sodium (Colace) 100 mg THREE TIMES A DAY ORAL 06/17/17 20:00 07/03/17 19:59 07/02/17 08:24 Ethambutol HCl (Myambutol) 1,000 mg 3XW ORAL 06/18/17 09:00 07/18/17 23:59 07/02/17 08:25 Hydromorphone HCl (Dilaudid) 1 mg Q4H PRN IVP Moderate Pain (Pain Scale 4-6) 06/27/17 18:00 07/04/17 17:59 06/29/17 17:49 Hydromorphone HCl (Dilaudid) 2 mg Q4H PRN IVP Severe Pain (Pain Scale 7-10) 06/27/17 21:00 07/04/17 20:59 07/02/17 06:54 Levofloxacin (Levaquin) 750 mg EVERY OTHER DAY@2000 ORAL 06/17/17 20:00 07/07/17 19:59 07/01/17 20:34 Lisinopril (Prinivil) 20 mg BID ORAL 06/17/17 09:00 07/04/17 08:59 07/02/17 08:24 Metronidazole (Flagyl) 500 mg Q8HR ORAL 06/17/17 22:00 07/07/17 21:59 07/02/17 05:26 Micafungin Sodium 100 mg/Dextrose 110 ml @ 110 mls/hr Q24H IVPB 07/01/17 20:00 07/08/17 19:59 07/01/17 21:37 Nitroglycerin (Ntg) 0.4 mg Q5M PRN SL Prn Chest Pain 06/16/17 18:15 07/04/17 09:14 Nitroglycerin (Ntg) 1 patch Q24H TDERMAL 06/17/17 11:30 07/04/17 11:29 07/01/17 10:35 Ondansetron HCl (Zofran) 4 mg Q6H PRN IVP Nausea & Vomiting 06/16/17 18:30 07/14/17 18:29 07/02/17 06:53 Pantoprazole (Protonix) 40 mg ACBREAKFAST ORAL 06/17/17 06:30 07/15/17 06:29 07/02/17 05:26 Polyethylene Glycol (Miralax) 17 gm DAILYPRN PRN ORAL Constipation 06/16/17 18:30 07/14/17 18:29 Promethazine HCl/ Codeine (Phenergan with Codeine) 5 ml Q4H PRN ORAL For Cough 06/16/17 18:30 07/05/17 18:29 06/27/17 22:44 Rifampin (Rifadin) 600 mg DAILY ORAL 06/25/17 17:00 07/25/17 16:59 07/02/17 08:24 Sevelamer Carbonate (Renvela) 2,400 mg THREE TIMES A DAY ORAL 06/16/17 18:45 07/16/17 18:44 07/02/17 08:25 Rohan ([facility])Mariela NP Jul 02, 2017 10:10
--- NOTE | 2017-07-02 10:42 | Nephrology Progress Note ---
Assessment/Plan Problem List: (1) ESRD (end stage renal disease) on dialysis (2) Shortness of breath (3) Anemia Assessment worsenning Anemia ESRD , missed HD , admitted with high K and pulmonary edema Acute respiratory distress due to volume overload elevated troponin r/o ACS h/o COPD ? exacerbation HTN urgency Cardiomyopathy L AICD anemia of chronic kidney disease Hx of CVA Plan Plan: Low H&H - consider transfusion HD next 07/02 Transfused Phos binders BP meds adjustment Optimize cardiac status per orders Subjective ROS Limited/Unobtainable: No Objective Objective Last 24 Hour Vital Signs Date Time Temp Pulse Resp B/P (MAP) Pulse Ox O2 Delivery O2 Flow Rate FiO2 07/02/17 08:25 74 146/88 07/02/17 08:24 146/88 07/02/17 08:00 97.9 74 19 146/88 96 97.9 07/02/17 06:54 97.7 07/02/17 06:30 91 18 Nasal Cannula 5.0 07/02/17 06:30 91 Nasal Cannula 5.0 07/02/17 06:30 Nasal Cannula 5.0 07/02/17 04:00 97.7 80 18 137/71 91 97.7 07/02/17 03:37 98.2 07/02/17 03:06 98.2 07/02/17 01:29 98.2 07/02/17 00:30 98.2 07/02/17 00:00 92 Room Air 07/02/17 00:00 97.3 75 20 132/75 92 Room Air 97.3 07/01/17 22:59 98.2 07/01/17 22:59 93 07/01/17 20:34 85 121/79 07/01/17 20:11 98.2 85 20 121/79 99 Room Air 98.2 07/01/17 20:11 99 Nasal Cannula 5.0 07/01/17 19:31 92 Nasal Cannula 5.0 40 07/01/17 19:31 Nasal Cannula 5.0 40 07/01/17 19:31 81 18 Nasal Cannula 5.0 40 07/01/17 17:53 114/71 07/01/17 16:05 98.0 88 20 114/71 99 98.0 07/01/17 11:49 98.8 77 20 143/85 99 98.8 Intake and Output 07/01/17 07/02/17 19:00 07:00 Intake Total 360 ml 600 ml Balance 360 ml 600 ml Intake Oral 360 ml 380 ml IV Total 220 ml # Bowel Movements 1 Laboratory Tests 07/02/17 05:25: White Blood Count 7.0, Red Blood Count 2.55L, Hemoglobin 7.9L, Hematocrit 25.6L , Mean Corpuscular Volume 101H, Mean Corpuscular Hemoglobin 31.1H, Mean Corpuscular Hemoglobin Concent 30.9L, Red Cell Distribution Width 19.8H, Platelet Count 86L, Mean Platelet Volume 6.8, Neutrophils (%) (Auto) , Lymphocytes (%) (Auto) , Monocytes (%) (Auto) , Eosinophils (%) (Auto) , Basophils (%) (Auto) , Differential Total Cells Counted 100, Neutrophils % ( Manual) 64, Lymphocytes % (Manual) 21, Monocytes % (Manual) 15H, Eosinophils % ( Manual) 0, Basophils % (Manual) 0, Band Neutrophils 0, Nucleated Red Blood Cells 1, Platelet Estimate DecreasedL, Platelet Morphology Normal, Polychromasia 2+, Hypochromasia 1+, Anisocytosis 1+, Macrocytosis 1+, Sodium Level 142, Potassium Level 3.9, Chloride Level 97L, Carbon Dioxide Level 34H, Anion Gap 12, Blood Urea Nitrogen 40H, Creatinine 10.9H, Estimat Glomerular Filtration Rate 5.9, Glucose Level 99, Calcium Level 9.0, Total Bilirubin 1.4H, Direct Bilirubin 0.8H, Aspartate Amino Transf (AST/SGOT) 96H, Alanine Aminotransferase (ALT/SGPT) 55, Alkaline Phosphatase 137H, Total Protein 7.1, Albumin 2.5L, Globulin 4.6, Albumin/Globulin Ratio 0.5L Height (Feet): 5 Height (Inches): 7.00 Weight (Pounds): 237 General Appearance: no apparent distress Objective no change LIAM MONTELONGO Jul 02, 2017 10:42
[2017-07-02] MEDS ORDERED: Albuterol/Ipratropium 3ml neb HHN PRN (11:30)
[2017-07-02] MEDS ORDERED: Nitroglycerin Subl 0.4mg tab SL PRN (11:30)
[2017-07-02] MEDS: Nitroglycerin Patch 0.4mg TDERMAL SCH (11:38)
--- NOTE | 2017-07-02 12:15 | Internal Med Progress Note ---
Subjective Date of Service: Jul 02, 2017 Physician Name PiresZoey Attending Physician Chaitanya Weinstein MD Current Medications Medications (Trade) Dose Ordered Sig/Jose Route PRN Reason Start Time Stop Time Status Last Admin Dose Admin Acetaminophen (Tylenol) 650 mg Q4H PRN RECTAL Mild Pain (Pain Scale 1-3) 06/16/17 19:00 07/09/17 18:59 Albuterol/ Ipratropium (Albuterol/ Ipratropium) 3 ml Q4H PRN HHN sob 07/02/17 11:30 07/07/17 11:29 Alprazolam (Xanax) 2 mg DAILYPRN PRN ORAL For Anxiety 07/02/17 08:45 07/09/17 08:44 Carisoprodol (Soma) 350 mg Q6H PRN ORAL MUSCLE SPASMS 06/16/17 19:00 07/14/17 18:59 07/02/17 08:25 Carvedilol (Coreg) 25 mg EVERY 12 HOURS ORAL 07/02/17 21:00 07/19/17 21:00 Ceftriaxone Sodium 2 gm/ Dextrose 110 ml @ 220 mls/hr Q24H IVPB 06/29/17 20:00 07/06/17 19:59 07/01/17 20:34 Chlorhexidine Gluconate (Mireille-Hex 2%) 1 applic DAILY@2000 TOPIC 06/16/17 20:00 07/05/17 19:59 07/01/17 20:35 Clonidine HCl (Catapres Tab) 0.1 mg Q4H PRN ORAL bp over 160 syst 07/02/17 11:30 07/19/17 11:29 Dextrose (Dextrose 50%) STAT PRN IV Hypoglycemia 06/16/17 19:00 07/14/17 18:59 Docusate Sodium (Colace) 100 mg THREE TIMES A DAY ORAL 07/02/17 13:00 07/18/17 13:00 Ethambutol HCl (Myambutol) 1,000 mg 3XW ORAL 06/18/17 09:00 07/18/17 23:59 07/02/17 08:25 Hydromorphone HCl (Dilaudid) 1 mg Q4H PRN IVP Moderate Pain (Pain Scale 4-6) 07/02/17 11:15 07/09/17 11:14 Hydromorphone HCl (Dilaudid) 2 mg Q4H PRN IVP Severe Pain (Pain Scale 7-10) 07/02/17 11:15 07/09/17 11:14 07/02/17 11:39 Levofloxacin (Levaquin) 750 mg EVERY OTHER DAY@2000 ORAL 06/17/17 20:00 07/07/17 19:59 07/01/17 20:34 Lisinopril (Prinivil) 20 mg BID ORAL 07/02/17 18:00 07/19/17 18:00 Metronidazole (Flagyl) 500 mg Q8HR ORAL 06/17/17 22:00 07/07/17 21:59 07/02/17 05:26 Micafungin Sodium 100 mg/Dextrose 110 ml @ 110 mls/hr Q24H IVPB 07/01/17 20:00 07/08/17 19:59 07/01/17 21:37 Nitroglycerin (Ntg) 0.4 mg Q5M PRN SL Prn Chest Pain 07/02/17 11:30 07/19/17 11:29 Nitroglycerin (Ntg) 1 patch Q24H TDERMAL 07/02/17 11:30 07/19/17 11:30 07/02/17 11:38 Ondansetron HCl (Zofran) 4 mg Q6H PRN IVP Nausea & Vomiting 06/16/17 18:30 07/14/17 18:29 07/02/17 06:53 Pantoprazole (Protonix) 40 mg ACBREAKFAST ORAL 06/17/17 06:30 07/15/17 06:29 07/02/17 05:26 Polyethylene Glycol (Miralax) 17 gm DAILYPRN PRN ORAL Constipation 06/16/17 18:30 07/14/17 18:29 Promethazine HCl/ Codeine (Phenergan with Codeine) 5 ml Q4H PRN ORAL For Cough 06/16/17 18:30 07/05/17 18:29 06/27/17 22:44 Rifampin (Rifadin) 600 mg DAILY ORAL 06/25/17 17:00 07/25/17 16:59 07/02/17 08:24 Sevelamer Carbonate (Renvela) 2,400 mg THREE TIMES A DAY ORAL 06/16/17 18:45 07/16/17 18:44 07/02/17 08:25 Temazepam (Restoril) 15 mg HSPRN PRN ORAL Insomnia 07/02/17 21:00 07/09/17 20:59 Allergies: Coded Allergies: IODINE AND IODIDE CONTAINING PRODUC (Verified Allergy, Mild, itching and pruritis, 06/25/17) Uncoded Allergies: CONTRAST/DYE (Allergy, Intermediate, PRURITIS AND ITCHING, 06/25/17) ROS Limited/Unobtainable: No Constitutional: Reports: no symptoms HEENT: Reports: no symptoms Cardiovascular: Reports: no symptoms Respiratory: Reports: shortness of breath Gastrointestinal/Abdominal: Reports: no symptoms Genitourinary: Reports: no symptoms Neurologic/Psychiatric: Reports: no symptoms Subjective 57 YO M admitted with chest pain and shortness of breath. Now pneumonia and candelaria heart failure. Back on nasal canula. Cover for Int Misbah-Dr Weinstein. Objective Last Vital Signs Date Time Temp Pulse Resp B/P (MAP) Pulse Ox O2 Delivery O2 Flow Rate FiO2 07/02/17 12:00 98.2 71 20 124/80 95 98.2 07/02/17 06:30 Nasal Cannula 5.0 07/01/17 19:31 40 Laboratory Tests Test 07/02/17 05:25 White Blood Count 7.0 K/UL (4.8-10.8) Red Blood Count 2.55 M/UL (4.70-6.10) L Hemoglobin 7.9 G/DL (14.2-18.0) L Hematocrit 25.6 % (42.0-52.0) L Mean Corpuscular Volume 101 FL (80-99) H Mean Corpuscular Hemoglobin 31.1 PG (27.0-31.0) H Mean Corpuscular Hemoglobin Concent 30.9 G/DL (32.0-36.0) L Red Cell Distribution Width 19.8 % (11.6-14.8) H Platelet Count 86 K/UL (150-450) L Mean Platelet Volume 6.8 FL (6.5-10.1) Neutrophils (%) (Auto) % (45.0-75.0) Lymphocytes (%) (Auto) % (20.0-45.0) Monocytes (%) (Auto) % (1.0-10.0) Eosinophils (%) (Auto) % (0.0-3.0) Basophils (%) (Auto) % (0.0-2.0) Differential Total Cells Counted 100 Neutrophils % (Manual) 64 % (45-75) Lymphocytes % (Manual) 21 % (20-45) Monocytes % (Manual) 15 % (1-10) H Eosinophils % (Manual) 0 % (0-3) Basophils % (Manual) 0 % (0-2) Band Neutrophils 0 % (0-8) Nucleated Red Blood Cells 1 /100 WBC Platelet Estimate Decreased L Platelet Morphology Normal Polychromasia 2+ Hypochromasia 1+ Anisocytosis 1+ Macrocytosis 1+ Sodium Level 142 MMOL/L (136-145) Potassium Level 3.9 MMOL/L (3.5-5.1) Chloride Level 97 MMOL/L (98-107) L Carbon Dioxide Level 34 MMOL/L (21-32) H Anion Gap 12 mmol/L (5-15) Blood Urea Nitrogen 40 mg/dL (7-18) H Creatinine 10.9 MG/DL (0.55-1.30) H Estimat Glomerular Filtration Rate 5.9 mL/min (>60) Glucose Level 99 MG/DL (74-106) Calcium Level 9.0 MG/DL (8.5-10.1) Total Bilirubin 1.4 MG/DL (0.2-1.0) H Direct Bilirubin 0.8 MG/DL (0.0-0.3) H Aspartate Amino Transf (AST/SGOT) 96 U/L (15-37) H Alanine Aminotransferase (ALT/SGPT) 55 U/L (12-78) Alkaline Phosphatase 137 U/L (46-116) H Total Protein 7.1 G/DL (6.4-8.2) Albumin 2.5 G/DL (3.4-5.0) L Globulin 4.6 g/dL Albumin/Globulin Ratio 0.5 (1.0-2.7) L Intake and Output 07/01/17 07/02/17 19:00 07:00 Intake Total 360 ml 600 ml Balance 360 ml 600 ml Intake Oral 360 ml 380 ml IV Total 220 ml # Bowel Movements 1 Objective General Appearance: WD/WN, alert, moderate distress EENT: PERRL/EOMI, normal ENT inspection Neck: non-tender, normal alignment, supple, normal inspection Cardiovascular: normal peripheral pulses, normal rate, regular rhythm, no gallop/murmur, no JVD Respiratory/Chest: Nasal canula; respiratory distress, crackles/rales, rhonchi - bilaterally, expiratory wheezing Abdomen: normal bowel sounds, non tender, soft, no organomegaly, no mass Extremities: normal range of motion Neurologic: seaman officer 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 Currently on nasal canula. See pulmonay note. (2) Pleuritic chest pain (3) Hemoptysis Assessment & Plan: Due to pneumonia (4) Pneumonia Assessment & Plan: Providencia and pseudamonas. RUL and cavitary. Concerning for TB. Await AFB cultures-see ID consult. Continue vanco and ethambutol per ID. Continue rocephin, micafungin, flagyl, amikacin, levaquin, and rifampin (5) Shortness of breath (6) ESRD (end stage renal disease) on dialysis Assessment & Plan: See nephrology note. Next Hemodialysis 07/02/17 per nephrology (7) Hyperkalemia Assessment & Plan: Due to renal failure. Hemodialysis 06/12/17 per nephrology (8) COPD (chronic obstructive pulmonary disease) (9) HTN (hypertension) Assessment & Plan: Continue coreg and lisinopril. (10) CHF (congestive heart failure) (11) Elevated troponin Assessment & Plan: ?due to renal failure? See cardiology note. (12) Intractable abdominal pain Assessment & Plan: See surgery note. Await CT abdomen (13) Conjunctivitis Assessment & Plan: start tobramycin Status: not improved ZOEY PIRES Jul 02, 2017 12:15
[2017-07-02] MEDS: ALPRAZolam 0.5mg tab ORAL PRN (14:16)
--- NOTE | 2017-07-02 15:31 | Infectious Diseases Prog Note ---
Assessment/Plan Assessment/Plan A: Cavitary PNA. SCx: Neg ( m/l necrotizing Pneum, r/o Fungal, r/o TB ) ; improving -CT chest 06/25: Since the prior study of 06/15/2017, and. From further reduction in size of previously demonstrated thick walled right upper lobe cavitary mass. This was previously thought to most likely represent a cavitary inflammatory mass, and the interim reduction in size certainly supports that. Much less likely a cavitary neoplasm, but follow-up to resolution is recommended. Markedly improved parenchymal disease bilaterally, since the previous study. Nonetheless , extensive atelectasis and groundglass consolidation persists. Persistent small right pleural effusion, smaller than on the prior study. Resolved left pleural effusion 6 mm nodular opacity in the right upper lobe, not evident previously but likely obscured by surrounding consolidated lung parenchyma. This should be followed up in 6 months to one year depending on results of interim follow-up exams -CXR 06/21: Persistent but slightly decreased size of known right lung cavitary lesion. Persistent extensive interstitial and bilateral airspace opacities. -sp cx 06/05, 06/06 normal resp jordin; repeat sp cx 06/18 PsA (singh S) + Providencia stuarti (S Ceftriaxone, R Cipro) (likely superinfection/HCAP) Rsp status improved but on 06/[address] his condition worsen T-SPOT :Neg AFB x 3 : Neg MTB PCR x2 : neg cryptococcus Ag, Histoplams mycelial Ab , Blastomyces ab : neg ; histoplasma yeast ab (not able to be done due to anticomplemenatry activity) -Cocci, Asp ag p -Fungitell + 144 06/21 Xray : improvement of cavity CT chest 06/15: Slightly smaller (6 cm diameter ) but mostly unchanged cavitary lesion in the right lung, previously thought to represent a cavitating inflammatory process. Lung abscess is certainly a possibility. Fairly extensive bilateral pulmonary parenchymal consolidation, slightly increased from previous exam of 06/05/2017. Likely a combination of pulmonary edema and pneumonia. Small right and trace left pleural effusion, new/increased from the previous study. CT 06/05: 7.8 x 5.3 x 6.6 cm dense opacity in the posterior inferior right upper lobe with a central cavitation. Chest x-ray : right mid lung infiltrate, possible cavitation Rule out tuberculosis, fungal infection, or necrotizing pneumonia. CRP 14 Influenza negative Low-grade fever, SP Status post leukocytosis. Transaminitis ,? 2/2 Hep C cirrhosis- no active Hep C as VL not detected -CT abd/p: Evidence of hepatic cirrhosis. Hepatosplenomegaly. evidence of generalized anasarca, with pleural fluid and generalized subcutaneous edema. Cholelithiasis, also previously reported. Possible diverticulosis. No evidence of diverticulitis US Abd : Cholelithiasis. There is gallbladder wall thickening, likely related to hemodynamic abnormalities Splenomegaly. Evidence of hepatic cirrhosis HIV : NEG Hep Panel B neg , C Ab : +ve , VL not detected leukopenia and TCP 2/2 splenomegaly Seizure disorder History of CVA History of pacemaker placement Hyperlipidemia Hypertension COPD/asthma End-stage renal disease, on hemodialysis Diabetes Anxiety Anemia Echo, ejection fraction 45% to 50%. PLAN: Continue Micafungin abx d#18 (switched from voriconazole given drug-drug interaction with Rifampin) for possible Aspergillosis pending cultures and fungal serologies -Continue Flagyl (in addition with Levaquin will provide anaerobic coverage for possible aspiration/cavitary and now PsA PNA as no isolation of resistant organisms); abx d# 30/35-42 Continue empiric Ethambutol and Levaquin d# 20 empiric for TB pending cultures -Cotninue Rifampin 600mg qd #8 -monitor LFTs; will hold if symptomatic hepatotoxicity or if Tbili>3 or AST , ALR >5x upper limit of normal 07/01 SP Ceftriaxone #10 06/28 SP Amikacin #15 / SP PO Voriconazole #3 / SP Liposomal Ampho #8 / SP IV Vancomycin #14, Meropenem #5 / SP Zosyn d# 10 3/ SP Zithromax D# 6 f/u sputum culture (, fungal, and AFB x3). f/u Coccidioidal ,Galactomannan and Fungitell, Histoplasma ag urine -daily CMP Airborne isolation for now Disposition per Dept of Public Health Subjective Allergies: Coded Allergies: IODINE AND IODIDE CONTAINING PRODUC (Verified Allergy, Mild, itching and pruritis, 06/25/17) Uncoded Allergies: CONTRAST/DYE (Allergy, Intermediate, PRURITIS AND ITCHING, 06/25/17) Subjective afebrile no leukocytosis mild rise in AST and Tbili Objective Vital Signs Last 24 Hour Vital Signs Date Time Temp Pulse Resp B/P (MAP) Pulse Ox O2 Delivery O2 Flow Rate FiO2 07/02/17 12:00 98.2 71 20 124/80 95 98.2 07/02/17 11:38 146/88 07/02/17 08:25 74 146/88 07/02/17 08:24 146/88 07/02/17 08:00 97.9 74 19 146/88 96 97.9 07/02/17 06:54 97.7 07/02/17 06:30 91 18 Nasal Cannula 5.0 07/02/17 06:30 91 Nasal Cannula 5.0 07/02/17 06:30 Nasal Cannula 5.0 07/02/17 04:00 97.7 80 18 137/71 91 97.7 07/02/17 03:37 98.2 07/02/17 03:06 98.2 07/02/17 01:29 98.2 07/02/17 00:30 98.2 07/02/17 00:00 92 Room Air 07/02/17 00:00 97.3 75 20 132/75 92 Room Air 97.3 07/01/17 22:59 98.2 07/01/17 22:59 93 07/01/17 20:34 85 121/79 07/01/17 20:11 98.2 85 20 121/79 99 Room Air 98.2 07/01/17 20:11 99 Nasal Cannula 5.0 07/01/17 19:31 92 Nasal Cannula 5.0 40 07/01/17 19:31 Nasal Cannula 5.0 40 07/01/17 19:31 81 18 Nasal Cannula 5.0 40 07/01/17 17:53 114/71 07/01/17 16:05 98.0 88 20 114/71 99 98.0 Height (Feet): 5 Height (Inches): 7.00 Weight (Pounds): 237 Objective General Appearance: WD/WN, alert, moderate distress EENT: PERRL/EOMI, normal ENT inspection Neck: non-tender, normal alignment, supple, normal inspection Cardiovascular: normal peripheral pulses, normal rate, regular rhythm, no gallop/murmur, no JVD Respiratory/Chest: Non rebreather; respiratory distress, crackles/rales, rhonchi - bilaterally, expiratory wheezing Abdomen: normal bowel sounds, non tender, soft, no organomegaly, no mass Extremities: normal range of motion 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0-45.0) Monocytes (%) (Auto) % (1.0-10.0) Eosinophils (%) (Auto) % (0.0-3.0) Basophils (%) (Auto) % (0.0-2.0) Differential Total Cells Counted 100 Neutrophils % (Manual) 64 % (45-75) Lymphocytes % (Manual) 21 % (20-45) Monocytes % (Manual) 15 % (1-10) H Eosinophils % (Manual) 0 % (0-3) Basophils % (Manual) 0 % (0-2) Band Neutrophils 0 % (0-8) Nucleated Red Blood Cells 1 /100 WBC Platelet Estimate Decreased L Platelet Morphology Normal Polychromasia 2+ Hypochromasia 1+ Anisocytosis 1+ Macrocytosis 1+ Sodium Level 142 MMOL/L (136-145) Potassium Level 3.9 MMOL/L (3.5-5.1) Chloride Level 97 MMOL/L (98-107) L Carbon Dioxide Level 34 MMOL/L (21-32) H Anion Gap 12 mmol/L (5-15) Blood Urea Nitrogen 40 mg/dL (7-18) H Creatinine 10.9 MG/DL (0.55-1.30) H Estimat Glomerular Filtration Rate 5.9 mL/min (>60) Glucose Level 99 MG/DL (74-106) Calcium Level 9.0 MG/DL (8.5-10.1) Total Bilirubin 1.4 MG/DL (0.2-1.0) H Direct Bilirubin 0.8 MG/DL (0.0-0.3) H Aspartate Amino Transf (AST/SGOT) 96 U/L (15-37) H Alanine Aminotransferase (ALT/SGPT) 55 U/L (12-78) Alkaline Phosphatase 137 U/L (46-116) H Total Protein 7.1 G/DL (6.4-8.2) Albumin 2.5 G/DL (3.4-5.0) L Globulin 4.6 g/dL Albumin/Globulin Ratio 0.5 (1.0-2.7) L Current Medications Medications (Trade) Dose Ordered Sig/Jose Route PRN Reason Start Time Stop Time Status Last Admin Dose Admin Acetaminophen (Tylenol) 650 mg Q4H PRN RECTAL Mild Pain (Pain Scale 1-3) 06/16/17 19:00 07/09/17 18:59 Albuterol/ Ipratropium (Albuterol/ Ipratropium) 3 ml Q4H PRN HHN sob 07/02/17 11:30 07/07/17 11:29 Alprazolam (Xanax) 2 mg DAILYPRN PRN ORAL For Anxiety 07/02/17 08:45 07/09/17 08:44 07/02/17 14:16 Carisoprodol (Soma) 350 mg Q6H PRN ORAL MUSCLE SPASMS 06/16/17 19:00 07/14/17 18:59 07/02/17 08:25 Carvedilol (Coreg) 25 mg EVERY 12 HOURS ORAL 07/02/17 21:00 07/19/17 21:00 Ceftriaxone Sodium 2 gm/ Dextrose 110 ml @ 220 mls/hr Q24H IVPB 06/29/17 20:00 07/06/17 19:59 07/01/17 20:34 Chlorhexidine Gluconate (Mireille-Hex 2%) 1 applic DAILY@2000 TOPIC 06/16/17 20:00 07/05/17 19:59 07/01/17 20:35 Clonidine HCl (Catapres Tab) 0.1 mg Q4H PRN ORAL bp over 160 syst 07/02/17 11:30 07/19/17 11:29 Dextrose (Dextrose 50%) STAT PRN IV Hypoglycemia 06/16/17 19:00 07/14/17 18:59 Docusate Sodium (Colace) 100 mg THREE TIMES A DAY ORAL 07/02/17 13:00 07/18/17 13:00 07/02/17 13:09 Ethambutol HCl (Myambutol) 1,000 mg 3XW ORAL 06/18/17 09:00 07/18/17 23:59 07/02/17 08:25 Hydromorphone HCl (Dilaudid) 1 mg Q4H PRN IVP Moderate Pain (Pain Scale 4-6) 07/02/17 11:15 07/09/17 11:14 Hydromorphone HCl (Dilaudid) 2 mg Q4H PRN IVP Severe Pain (Pain Scale 7-10) 07/02/17 11:15 07/09/17 11:14 07/02/17 11:39 Levofloxacin (Levaquin) 750 mg EVERY OTHER DAY@1999 ORAL 06/17/17 20:00 07/07/17 19:59 07/01/17 20:34 Lisinopril (Prinivil) 20 mg BID ORAL 07/02/17 18:00 07/19/17 18:00 Metronidazole (Flagyl) 500 mg Q8HR ORAL 06/17/17 22:00 07/07/17 21:59 07/02/17 13:09 Micafungin Sodium 100 mg/Dextrose 110 ml @ 110 mls/hr Q24H IVPB 07/01/17 20:00 07/08/17 19:59 07/01/17 21:37 Nitroglycerin (Ntg) 0.4 mg Q5M PRN SL Prn Chest Pain 07/02/17 11:30 07/19/17 11:29 Nitroglycerin (Ntg) 1 patch Q24H TDERMAL 07/02/17 11:30 07/19/17 11:30 07/02/17 11:38 Ondansetron HCl (Zofran) 4 mg Q6H PRN IVP Nausea & Vomiting 06/16/17 18:30 07/14/17 18:29 07/02/17 13:10 Pantoprazole (Protonix) 40 mg ACBREAKFAST ORAL 06/17/17 06:30 07/15/17 06:29 07/02/17 05:26 Polyethylene Glycol (Miralax) 17 gm DAILYPRN PRN ORAL Constipation 06/16/17 18:30 07/14/17 18:29 Promethazine HCl/ Codeine (Phenergan with Codeine) 5 ml Q4H PRN ORAL For Cough 06/16/17 18:30 07/05/17 18:29 06/27/17 22:44 Rifampin (Rifadin) 600 mg DAILY ORAL 06/25/17 17:00 07/25/17 16:59 07/02/17 08:24 Sevelamer Carbonate (Renvela) 2,400 mg THREE TIMES A DAY ORAL 06/16/17 18:45 07/16/17 18:44 07/02/17 13:09 Temazepam (Restoril) 15 mg HSPRN PRN ORAL Insomnia 07/02/17 21:00 07/09/17 20:59 Aleja Crocker M.D. Jul 02, 2017 15:31
[2017-07-02] MEDS: Micafungin 100 MG in D5W 110 ML IVPB SCH (19:48)
[2017-07-02] MEDS: Dyna-Hex 2% Top Sol 2oz TOPIC SCH (19:48)
--- NOTE | 2017-07-02 21:56 | General Progress Note ---
Assessment/Plan Assessment/Plan Assessment - Anemia, multifactorial - OB (+) Stool - w/u deferred due to respiratory status - ESRD/HD - DM - HTN - COPD - Cavitary lung disease - gallstones - RUQ TTP and improving LFT - abnormal GB ultrasound - Thrombocytopenia - cirrhotic appearing liver on CT - Hepatitis C Ab (+)/ PCR (-) - Poor prognosis Recommendations - PO as tolerated - monitor LFT - slightly elevated - check AFP and Ammonia - abx per ID - transfuse PRN - Acid blockade - Defer EGD/Colon a this time Subjective Allergies: Coded Allergies: IODINE AND IODIDE CONTAINING PRODUC (Verified Allergy, Mild, itching and pruritis, 06/25/17) Uncoded Allergies: CONTRAST/DYE (Allergy, Intermediate, PRURITIS AND ITCHING, 06/25/17) Subjective above noted no events overnight tolerating PO no new complaints Objective Last 24 Hour Vital Signs Date Time Temp Pulse Resp B/P (MAP) Pulse Ox O2 Delivery O2 Flow Rate FiO2 07/02/17 21:22 84 122/81 07/02/17 20:19 98.1 07/02/17 20:00 98.1 84 18 122/81 91 98.1 07/02/17 19:49 99.5 07/02/17 19:30 Nasal Cannula 4.0 36 07/02/17 19:30 93 Nasal Cannula 4.0 36 07/02/17 19:30 84 18 Nasal Cannula 4.0 36 07/02/17 18:21 Nasal Cannula 5.0 07/02/17 18:19 99.5 70 16 140/87 Nasal Cannula 5.0 99.5 07/02/17 16:01 Nasal Cannula 5.0 07/02/17 16:00 98.8 69 20 155/90 98 98.8 07/02/17 15:00 98.8 69 12 141/91 Nasal Cannula 5.0 98.8 07/02/17 15:00 Nasal Cannula 5.0 07/02/17 12:01 Nasal Cannula 5.0 07/02/17 12:00 98.2 71 20 124/80 95 98.2 07/02/17 11:38 146/88 07/02/17 08:25 74 146/88 07/02/17 08:24 146/88 07/02/17 08:01 Nasal Cannula 5.0 07/02/17 08:00 97.9 74 19 146/88 96 97.9 07/02/17 06:54 97.7 07/02/17 06:30 91 18 Nasal Cannula 5.0 07/02/17 06:30 91 Nasal Cannula 5.0 07/02/17 06:30 Nasal Cannula 5.0 07/02/17 04:00 97.7 80 18 137/71 91 97.7 07/02/17 03:37 98.2 07/02/17 03:06 98.2 07/02/17 01:29 98.2 07/02/17 00:30 98.2 07/02/17 00:00 92 Room Air 07/02/17 00:00 97.3 75 20 132/75 92 Room Air 97.3 07/01/17 22:59 98.2 07/01/17 22:59 93 Intake and Output 07/01/17 07/02/17 19:00 07:00 Intake Total 360 ml 600 ml Balance 360 ml 600 ml Intake Oral 360 ml 380 ml IV Total 220 ml # Bowel Movements 1 Laboratory Tests 07/02/17 05:25: White Blood Count 7.0, Red Blood Count 2.55L, Hemoglobin 7.9L, Hematocrit 25.6L , Mean Corpuscular Volume 101H, Mean Corpuscular Hemoglobin 31.1H, Mean Corpuscular Hemoglobin Concent 30.9L, Red Cell Distribution Width 19.8H, Platelet Count 86L, Mean Platelet Volume 6.8, Neutrophils (%) (Auto) , Lymphocytes (%) (Auto) , Monocytes (%) (Auto) , Eosinophils (%) (Auto) , Basophils (%) (Auto) , Differential Total Cells Counted 100, Neutrophils % ( Manual) 64, Lymphocytes % (Manual) 21, Monocytes % (Manual) 15H, Eosinophils % ( Manual) 0, Basophils % (Manual) 0, Band Neutrophils 0, Nucleated Red Blood Cells 1, Platelet Estimate DecreasedL, Platelet Morphology Normal, Polychromasia 2+, Hypochromasia 1+, Anisocytosis 1+, Macrocytosis 1+, Sodium Level 142, Potassium Level 3.9, Chloride Level 97L, Carbon Dioxide Level 34H, Anion Gap 12, Blood Urea Nitrogen 40H, Creatinine 10.9H, Estimat Glomerular Filtration Rate 5.9, Glucose Level 99, Calcium Level 9.0, Total Bilirubin 1.4H, Direct Bilirubin 0.8H, Aspartate Amino Transf (AST/SGOT) 96H, Alanine Aminotransferase (ALT/SGPT) 55, Alkaline Phosphatase 137H, Total Protein 7.1, Albumin 2.5L, Globulin 4.6, Albumin/Globulin Ratio 0.5L Height (Feet): 5 Height (Inches): 7.00 Weight (Pounds): 237 Objective WDWN AA Man NCAT supple CTA RRR Soft mildly distended, (+) improved RUQ TTP, (+) trunk edema (+) leg edema PERCY JOYNER Jul 02, 2017 21:56
--- NOTE | 2017-07-02 22:31 | General Progress Note ---
Assessment/Plan Assessment/Plan #. Anemia secondary to chronic disease. --> Hemoglobin levels currently ~8, has been above goal and does not need transfusion at this time --> S/P abd CAT scan revealing evidence of hepatic cirrhosis. --> Hepatosplenomegaly. Ascites. There is also evidence of generalized anasarca , with pleural fluid and generalized subcutaneous edema --> Continue to closely monitor and trend cbc daily. --> Anemia workup completed and reviewed. Iron 42, TIBC 180, Ferritin 593, B12 876. --> Ferritin is >500, hgb goal is >7 --> Anemia w/u has been reviewed --> ++Occult blood. Consider GI Services and Recs. --> Abd pain improved on pain management #. Anemia of kidney disease --> HD as needed per nephrology team --> Monitor closely. #. Generalized body ache related to fluid overload. #. End-stage renal disease, on hemodialysis as needed --> Monitor. S/P HD. #. Tachycardia, to be seen by Cardiology Service, isolated T-wave and ST- segment depression in V6. --> HR has been ~80-90bpm --> S/P Chest CT -- Evidence of worsening CHF/interstitial edema. --> Monitor for improvement. #. Elevated BNP, potentially related to underlying CKD. #. Cardiomegaly. S/P Chest Xray --> Persistent but slightly decreased size of known right lung cavitary lesion. --> Persistent extensive interstitial and bilateral airspace opacities. --> Improved. Subjective Date patient seen: Jul 02, 2017 Constitutional: Denies: no symptoms, chills, diaphoresis, fever, malaise, weakness, other HEENT: Denies: no symptoms, eye pain, blurred vision, tearing, double vision, ear pain, ear discharge, nose pain, nose congestion, throat pain, throat swelling, mouth pain, mouth swelling, other Cardiovascular: Denies: no symptoms, chest pain, edema, irregular heart rate, lightheadedness, palpitations, syncope, other Respiratory: Denies: no symptoms, cough, orthopnea, shortness of breath, SOB with excertion, SOB at rest, sputum, stridor, wheezing, other Gastrointestinal/Abdominal: Denies: no symptoms, abdomen distended, abdominal pain, black stools, tarry stools, blood in stool, constipated, diarrhea, difficulty swallowing, nausea, poor appetite, poor fluid intake, rectal bleeding , vomiting, other Genitourinary: Denies: no symptoms, burning, discharge, frequency, flank pain, hematuria, incontinence, pain, urgency, other Neurologic/Psychiatric: Denies: no symptoms, anxiety, depressed, emotional problems, headache, numbness, paresthesia, pre-existing deficit, seizure, tingling, tremors, weakness, other Endocrine: Denies: no symptoms, excessive sweating, flushing, intolerance to cold, intolerance to heat, increased hunger, increased thirst, increased urine, unexplained weight gain, unexplained weight loss, other Hematologic/Lymphatic: Reports: anemia Allergies: Coded Allergies: IODINE AND IODIDE CONTAINING PRODUC (Verified Allergy, Mild, itching and pruritis, 06/25/17) Uncoded Allergies: CONTRAST/DYE (Allergy, Intermediate, PRURITIS AND ITCHING, 06/25/17) Subjective Pt resting in bed. Hemoglobin a bit low. NAD Objective Last 24 Hour Vital Signs Date Time Temp Pulse Resp B/P (MAP) Pulse Ox O2 Delivery O2 Flow Rate FiO2 07/02/17 21:22 84 122/81 07/02/17 20:19 98.1 07/02/17 20:00 98.1 84 18 122/81 91 98.1 07/02/17 19:49 99.5 07/02/17 19:30 Nasal Cannula 4.0 36 07/02/17 19:30 93 Nasal Cannula 4.0 36 07/02/17 19:30 84 18 Nasal Cannula 4.0 36 07/02/17 18:21 Nasal Cannula 5.0 07/02/17 18:19 99.5 70 16 140/87 Nasal Cannula 5.0 99.5 07/02/17 16:01 Nasal Cannula 5.0 07/02/17 16:00 98.8 69 20 155/90 98 98.8 07/02/17 15:00 98.8 69 12 141/91 Nasal Cannula 5.0 98.8 07/02/17 15:00 Nasal Cannula 5.0 07/02/17 12:01 Nasal Cannula 5.0 07/02/17 12:00 98.2 71 20 124/80 95 98.2 07/02/17 11:38 146/88 07/02/17 08:25 74 146/88 07/02/17 08:24 146/88 07/02/17 08:01 Nasal Cannula 5.0 07/02/17 08:00 97.9 74 19 146/88 96 97.9 07/02/17 06:54 97.7 07/02/17 06:30 91 18 Nasal Cannula 5.0 07/02/17 06:30 91 Nasal Cannula 5.0 07/02/17 06:30 Nasal Cannula 5.0 07/02/17 04:00 97.7 80 18 137/71 91 97.7 07/02/17 03:37 98.2 07/02/17 03:06 98.2 07/02/17 01:29 98.2 07/02/17 00:30 98.2 07/02/17 00:00 92 Room Air 07/02/17 00:00 97.3 75 20 132/75 92 Room Air 97.3 07/01/17 22:59 98.2 07/01/17 22:59 93 Intake and Output 07/01/17 07/02/17 19:00 07:00 Intake Total 360 ml 600 ml Balance 360 ml 600 ml Intake Oral 360 ml 380 ml IV Total 220 ml # Bowel Movements 1 Laboratory Tests 07/02/17 05:25: White Blood Count 7.0, Red Blood Count 2.55L, Hemoglobin 7.9L, Hematocrit 25.6L , Mean Corpuscular Volume 101H, Mean Corpuscular Hemoglobin 31.1H, Mean Corpuscular Hemoglobin Concent 30.9L, Red Cell Distribution Width 19.8H, Platelet Count 86L, Mean Platelet Volume 6.8, Neutrophils (%) (Auto) , Lymphocytes (%) (Auto) , Monocytes (%) (Auto) , Eosinophils (%) (Auto) , Basophils (%) (Auto) , Differential Total Cells Counted 100, Neutrophils % ( Manual) 64, Lymphocytes % (Manual) 21, Monocytes % (Manual) 15H, Eosinophils % ( Manual) 0, Basophils % (Manual) 0, Band Neutrophils 0, Nucleated Red Blood Cells 1, Platelet Estimate DecreasedL, Platelet Morphology Normal, Polychromasia 2+, Hypochromasia 1+, Anisocytosis 1+, Macrocytosis 1+, Sodium Level 142, Potassium Level 3.9, Chloride Level 97L, Carbon Dioxide Level 34H, Anion Gap 12, Blood Urea Nitrogen 40H, Creatinine 10.9H, Estimat Glomerular Filtration Rate 5.9, Glucose Level 99, Calcium Level 9.0, Total Bilirubin 1.4H, Direct Bilirubin 0.8H, Aspartate Amino Transf (AST/SGOT) 96H, Alanine Aminotransferase (ALT/SGPT) 55, Alkaline Phosphatase 137H, Total Protein 7.1, Albumin 2.5L, Globulin 4.6, Albumin/Globulin Ratio 0.5L Height (Feet): 5 Height (Inches): 7.00 Weight (Pounds): 237 General Appearance: confused Respiratory/Chest: decreased breath sounds Abdomen: soft Irving Parker MD Jul 02, 2017 22:31
[2017-07-03] VITALS: BP 144/80
[2017-07-03 03:59] VITALS: BP 132/79
[2017-07-03] MEDS: metroNIDAZOLE 500mg tab ORAL SCH ×3 (05:09→20:56)
[2017-07-03 07:16] LABS: ALANINE AMINOTRANSFERASE 48 U/L (12-78); ALBUMIN 2.5 G/DL (3.4-5.0); ALBUMIN/GLOBULIN RATIO 0.6 (1.0-2.7); ALKALINE PHOSPHATASE 129 U/L (46-116); ANION GAP 8 mmol/L (5-15); ASPARTATE AMINO TRANSFERASE 78 U/L (15-37); BILIRUBIN,TOTAL 1.7 MG/DL (0.2-1.0); BLOOD UREA NITROGEN 31 mg/dL (7-18); CALCIUM 8.7 MG/DL (8.5-10.1); CARBON DIOXIDE 35 MMOL/L (21-32); CHLORIDE 100 MMOL/L (98-107); CREATININE 9.7 MG/DL (0.55-1.30); POTASSIUM 3.7 MMOL/L (3.5-5.1); SODIUM 143 MMOL/L (136-145)
[2017-07-03 07:17] LABS: BILIRUBIN,DIRECT 1.2 MG/DL (0.0-0.3)
[2017-07-03 07:49] VITALS: BP 147/87
[2017-07-03] MEDS: Lisinopril 20mg tab ORAL SCH ×2 (08:03→17:07)
[2017-07-03] MEDS: Docusate 100mg cap ORAL SCH ×3 (08:03→17:09)
[2017-07-03] MEDS: Carvedilol 25mg Tab ORAL SCH ×2 (08:03→20:26)
--- NOTE | 2017-07-03 09:24 | Nephrology Progress Note ---
Assessment/Plan Problem List: (1) ESRD (end stage renal disease) on dialysis (2) Shortness of breath (3) Anemia Assessment worsenning Anemia ESRD , missed HD , admitted with high K and pulmonary edema Acute respiratory distress due to volume overload elevated troponin r/o ACS h/o COPD ? exacerbation HTN urgency Cardiomyopathy L AICD anemia of chronic kidney disease Hx of CVA Plan Plan: Low H&H - consider transfusion HD next 07/04 Transfused Phos binders BP meds adjustment Optimize cardiac status per orders Subjective ROS Limited/Unobtainable: No Constitutional: Reports: malaise Objective Objective Last 24 Hour Vital Signs Date Time Temp Pulse Resp B/P (MAP) Pulse Ox O2 Delivery O2 Flow Rate FiO2 07/03/17 08:03 147/87 07/03/17 08:03 75 147/87 07/03/17 07:49 98.6 75 20 147/87 92 98.6 07/03/17 07:18 Nasal Cannula 4.0 36 07/03/17 07:18 78 18 Nasal Cannula 4.0 36 07/03/17 07:18 96 Nasal Cannula 4.0 36 07/03/17 04:38 97.9 07/03/17 04:08 97.9 07/03/17 03:59 97.9 82 18 132/79 96 Nasal Cannula 3.0 97.9 07/03/17 00:00 98.2 74 20 144/80 91 Room Air 98.2 07/03/17 00:00 91 Room Air 07/02/17 23:59 98.1 07/02/17 21:22 84 122/81 07/02/17 20:00 91 Room Air 07/02/17 20:00 98.1 84 18 122/81 91 98.1 07/02/17 19:49 99.5 07/02/17 19:30 Nasal Cannula 4.0 36 07/02/17 19:30 93 Nasal Cannula 4.0 36 07/02/17 19:30 84 18 Nasal Cannula 4.0 36 07/02/17 18:21 Nasal Cannula 5.0 07/02/17 18:19 99.5 70 16 140/87 Nasal Cannula 5.0 99.5 07/02/17 16:01 Nasal Cannula 5.0 07/02/17 16:00 98.8 69 20 155/90 98 98.8 07/02/17 15:00 98.8 69 12 141/91 Nasal Cannula 5.0 98.8 07/02/17 15:00 Nasal Cannula 5.0 07/02/17 12:01 Nasal Cannula 5.0 07/02/17 12:00 98.2 71 20 124/80 95 98.2 07/02/17 11:38 146/88 Intake and Output 07/02/17 07/03/17 19:00 07:00 Intake Total 240 ml 710 ml Output Total 3000 ml Balance -2760 ml 710 ml Intake Oral 240 ml 600 ml IV Total 110 ml Hemodialysis UF 3000 ml # Voids 1 Laboratory Tests 07/03/17 05:00: Sodium Level 143, Potassium Level 3.7, Chloride Level 100, Carbon Dioxide Level 35H, Anion Gap 8, Blood Urea Nitrogen 31H, Creatinine 9.7H, Estimat Glomerular Filtration Rate 6.8, Glucose Level 120H, Calcium Level 8.7, Total Bilirubin 1.7H , Direct Bilirubin 1.2H, Aspartate Amino Transf (AST/SGOT) 78H, Alanine Aminotransferase (ALT/SGPT) 48, Alkaline Phosphatase 129H, Total Protein 6.5, Albumin 2.5L, Globulin 4.0, Albumin/Globulin Ratio 0.6L Height (Feet): 5 Height (Inches): 7.00 Weight (Pounds): 234 General Appearance: no apparent distress Objective no change LIAM MONTELONGO 29, 2018 09:24
--- NOTE | 2017-07-03 09:37 | Pulmonology Progress Note ---
Assessment/Plan Assessment/Plan ASSESSMENT R upper lobe cavitary mass Necrotizing PNA with cavitating lesion RUL r/o TB Acute hypoxemic RF requiring BiPAP -resolved Pleuritic chest pain likely due to necrotizing PNA . Elevated troponin Systolic CHF ( recent negative reversible perfusion defect.) cardiomyopathy pulmonary edema Asthma. End-stage renal disease, on hemodialysis. Hypertensive urgency . Anemia of chronic disease. History of intracardiac defibrillator placement. Prior history of cerebrovascular accident. ESRD on HD thrombocytopenia transaminitis hepatitis C liver cirrhosis cholelithiasis PLAN OF CARE MS resp isolation CT chest 06/26 -Further reduction in size of previously demonstrated thick walled right upper lobe cavitary mass. Currently measures 6 cm AP by 5.2 cm transverse by 3.9 cm craniocaudad, previously approximately 7.8 x 4.9 x 5.2 cm. This was previously thought to most likely represent a cavitary inflammatory mass, and the interim reduction in size certainly supports that. Much less likely a cavitary neoplasm CT chest 06/15- Slightly smaller but mostly unchanged cavitary lesion in the right lung, previously thought to represent a cavitating inflammatory process. Lung abscess is certainly a possibility initial CT chest with evidence of necrotizing PNA with cavitary lesion - 7.8 x 5.3 x 6.6 cm dense opacity in the posterior inferior right upper lobe with a central cavitation. T-SPOT-Neg ; sputum AFB x 3- Neg MTB by PCR x2 -neg cryptococcus Ag, Histo Ab , Blasto ab-all neg ; serology for Asp pending sputum cx + Providencia/Pseudomonas Ethambutol , Levaquin and Rifaximin, monitor LFT-down to normal, Flagyl added by ID for anaerobic coverage fup with fungal serology and AFB culture Micafungin to cover for possible Aspergilloses O2 titrate, pulm toilet BiPAP at HS and prn HIV negative blood cx negative, influenza screen negative a/tussive prn cardio follows BP management with BB CCB and [facility] medical management for SHF nephro follows HD as per nephro monitor renal parameters, lytes, avoid nephrotoxic heme follows transfuse prn with goal to keep Hgb above 7 anemia w/up c/w anemia of chronic disease and multifactorial as per GI stool OB+ x1 monitor PLT count- better off Heparin SCD Venous Duplex BLE- negative GI follows hep panel + hep C, no viral load , thus no active infection cirrhosis likely 2 to hep C abd US + cholelithiasis, HSM, surgeon consulted CT A/P with hepatic cirrhosis, HSM, anasarca and cholelithiasis, no evidence of acute cholecystis, no surgical intervention necessary per GI defer EGD/colon for now add sleeping pill cont resp isolation disposition after Public Health Department clearance case discussed and evaluated by supervising physician Subjective Allergies: Coded Allergies: IODINE AND IODIDE CONTAINING PRODUC (Verified Allergy, Mild, itching and pruritis, 06/25/17) Uncoded Allergies: CONTRAST/DYE (Allergy, Intermediate, PRURITIS AND ITCHING, 06/25/17) Subjective on resp isolation for possible TB no SOB no CP on O2 via NC afebrile, no leukocytosis HD done Friday feeling better, no n/v/ slept last night Objective Last 24 Hour Vital Signs Date Time Temp Pulse Resp B/P (MAP) Pulse Ox O2 Delivery O2 Flow Rate FiO2 07/03/17 08:03 147/87 07/03/17 08:03 75 147/87 07/03/17 07:49 98.6 75 20 147/87 92 98.6 07/03/17 07:18 Nasal Cannula 4.0 36 07/03/17 07:18 78 18 Nasal Cannula 4.0 36 07/03/17 07:18 96 Nasal Cannula 4.0 36 07/03/17 04:38 97.9 07/03/17 04:08 97.9 07/03/17 03:59 97.9 82 18 132/79 96 Nasal Cannula 3.0 97.9 07/03/17 00:00 98.2 74 20 144/80 91 Room Air 98.2 07/03/17 00:00 91 Room Air 07/02/17 23:59 98.1 07/02/17 21:22 84 122/81 07/02/17 20:00 91 Room Air 07/02/17 20:00 98.1 84 18 122/81 91 98.1 07/02/17 19:49 99.5 07/02/17 19:30 Nasal Cannula 4.0 36 07/02/17 19:30 93 Nasal Cannula 4.0 36 07/02/17 19:30 84 18 Nasal Cannula 4.0 36 07/02/17 18:21 Nasal Cannula 5.0 07/02/17 18:19 99.5 70 16 140/87 Nasal Cannula 5.0 99.5 07/02/17 16:01 Nasal Cannula 5.0 07/02/17 16:00 98.8 69 20 155/90 98 98.8 07/02/17 15:00 98.8 69 12 141/91 Nasal Cannula 5.0 98.8 07/02/17 15:00 Nasal Cannula 5.0 07/02/17 12:01 Nasal Cannula 5.0 07/02/17 12:00 98.2 71 20 124/80 95 98.2 07/02/17 11:38 146/88 Intake and Output 07/02/17 07/03/17 19:00 07:00 Intake Total 240 ml 710 ml Output Total 3000 ml Balance -2760 ml 710 ml Intake Oral 240 ml 600 ml IV Total 110 ml Hemodialysis UF 3000 ml # Voids 1 Objective General Appearance: no acute distress, obese, awake, alert, oriented x4 AA male , HEENT: normocephalic, atraumatic, anicteric Respiratory/Chest: decreased breath sounds, ICD LT chest Cardiovascular: normal rate, LUE AV shunt + bruit/thrill, L neck IJ CL intact Abdomen: normal bowel sounds, soft, non tender, obese Extremities: +1 edema BLE Neurologic/Psychiatric: alert, responsive Musculoskeletal: normal muscle bulk Laboratory Tests 07/03/17 05:00: Sodium Level 143, Potassium Level 3.7, Chloride Level 100, Carbon Dioxide Level 35H, Anion Gap 8, Blood Urea Nitrogen 31H, Creatinine 9.7H, Estimat Glomerular Filtration Rate 6.8, Glucose Level 120H, Calcium Level 8.7, Total Bilirubin 1.7H , Direct Bilirubin 1.2H, Aspartate Amino Transf (AST/SGOT) 78H, Alanine Aminotransferase (ALT/SGPT) 48, Alkaline Phosphatase 129H, Total Protein 6.5, Albumin 2.5L, Globulin 4.0, Albumin/Globulin Ratio 0.6L Current Medications Medications (Trade) Dose Ordered Sig/Jose Route PRN Reason Start Time Stop Time Status Last Admin Dose Admin Acetaminophen (Tylenol) 650 mg Q4H PRN RECTAL Mild Pain (Pain Scale 1-3) 06/16/17 19:00 07/09/17 18:59 Albuterol/ Ipratropium (Albuterol/ Ipratropium) 3 ml Q4H PRN HHN sob 07/02/17 11:30 07/07/17 11:29 Alprazolam (Xanax) 2 mg DAILYPRN PRN ORAL For Anxiety 07/02/17 08:45 07/09/17 08:44 07/02/17 14:16 Carisoprodol (Soma) 350 mg Q6H PRN ORAL MUSCLE SPASMS 06/16/17 19:00 07/14/17 18:59 07/02/17 08:25 Carvedilol (Coreg) 25 mg EVERY 12 HOURS ORAL 07/02/17 21:00 07/19/17 21:00 07/03/17 08:03 Chlorhexidine Gluconate (Mireille-Hex 2%) 1 applic DAILY@1999 TOPIC 06/16/17 20:00 07/05/17 19:59 07/02/17 19:48 Clonidine HCl (Catapres Tab) 0.1 mg Q4H PRN ORAL bp over 160 syst 07/02/17 11:30 07/19/17 11:29 Dextrose (Dextrose 50%) STAT PRN IV Hypoglycemia 06/16/17 19:00 07/14/17 18:59 Docusate Sodium (Colace) 100 mg THREE TIMES A DAY ORAL 07/02/17 13:00 07/18/17 13:00 07/02/17 17:32 Ethambutol HCl (Myambutol) 1,000 mg 3XW ORAL 06/18/17 09:00 07/18/17 23:59 07/02/17 08:25 Hydromorphone HCl (Dilaudid) 1 mg Q4H PRN IVP Moderate Pain (Pain Scale 4-6) 07/02/17 11:15 07/09/17 11:14 Hydromorphone HCl (Dilaudid) 2 mg Q4H PRN IVP Severe Pain (Pain Scale 7-10) 07/02/17 11:15 07/09/17 11:14 07/03/17 08:02 Levofloxacin (Levaquin) 750 mg EVERY OTHER DAY@1999 ORAL 06/17/17 20:00 07/07/17 19:59 07/01/17 20:34 Lisinopril (Prinivil) 20 mg BID ORAL 07/02/17 18:00 07/19/17 18:00 07/03/17 08:03 Metronidazole (Flagyl) 500 mg Q8HR ORAL 06/17/17 22:00 07/07/17 21:59 07/03/17 05:09 Micafungin Sodium 100 mg/Dextrose 110 ml @ 110 mls/hr Q24H IVPB 07/01/17 20:00 07/08/17 19:59 07/02/17 19:48 Nitroglycerin (Ntg) 0.4 mg Q5M PRN SL Prn Chest Pain 07/02/17 11:30 07/19/17 11:29 Nitroglycerin (Ntg) 1 patch Q24H TDERMAL 07/02/17 11:30 07/19/17 11:30 07/02/17 11:38 Ondansetron HCl (Zofran) 4 mg Q6H PRN IVP Nausea & Vomiting 06/16/17 18:30 07/14/17 18:29 07/03/17 08:02 Pantoprazole (Protonix) 40 mg ACBREAKFAST ORAL 06/17/17 06:30 07/15/17 06:29 07/03/17 05:09 Polyethylene Glycol (Miralax) 17 gm DAILYPRN PRN ORAL Constipation 06/16/17 18:30 07/14/17 18:29 Promethazine HCl/ Codeine (Phenergan with Codeine) 5 ml Q4H PRN ORAL For Cough 06/16/17 18:30 07/05/17 18:29 06/27/17 22:44 Rifampin (Rifadin) 600 mg DAILY ORAL 06/25/17 17:00 07/25/17 16:59 07/03/17 08:02 Sevelamer Carbonate (Renvela) 2,400 mg THREE TIMES A DAY ORAL 06/16/17 18:45 07/16/17 18:44 07/03/17 08:03 Temazepam (Restoril) 15 mg HSPRN PRN ORAL Insomnia 07/02/17 21:00 07/09/17 20:59 07/03/17 00:00 Roh[facility] ArevaloC[facility] HospitalMariela Fong NP Jul 03, 2017 09:37
[2017-07-03] MEDS ORDERED: Promethazine/Codeine 5ml UD ORAL PRN (10:30)
[2017-07-03 11:46] VITALS: BP 142/91
[2017-07-03] MEDS: Nitroglycerin Patch 0.4mg TDERMAL SCH (11:59)
[2017-07-03 16:09] VITALS: BP 134/83
--- NOTE | 2017-07-03 16:45 | Infectious Diseases Prog Note ---
Assessment/Plan Assessment/Plan A: Cavitary PNA. SCx: Neg ( m/l necrotizing Pneum, r/o Fungal, r/o TB ) ; improving -CT chest 06/25: Since the prior study of 06/15/2017, and. From further reduction in size of previously demonstrated thick walled right upper lobe cavitary mass. This was previously thought to most likely represent a cavitary inflammatory mass, and the interim reduction in size certainly supports that. Much less likely a cavitary neoplasm, but follow-up to resolution is recommended. Markedly improved parenchymal disease bilaterally, since the previous study. Nonetheless , extensive atelectasis and groundglass consolidation persists. Persistent small right pleural effusion, smaller than on the prior study. Resolved left pleural effusion 6 mm nodular opacity in the right upper lobe, not evident previously but likely obscured by surrounding consolidated lung parenchyma. This should be followed up in 6 months to one year depending on results of interim follow-up exams -CXR 06/21: Persistent but slightly decreased size of known right lung cavitary lesion. Persistent extensive interstitial and bilateral airspace opacities. -sp cx 06/05, 06/06 normal resp jordin; repeat sp cx 06/18 PsA (singh S) + Providencia stuarti (S Ceftriaxone, R Cipro) (likely superinfection/HCAP) Rsp status improved but on 06/[address] his condition worsen T-SPOT :Neg AFB x 3 : Neg MTB PCR x2 : neg cryptococcus Ag, Histoplams mycelial Ab , Blastomyces ab : neg ; histoplasma yeast ab (not able to be done due to anticomplemenatry activity) -Cocci, Asp ag p -Fungitell + 144 06/21 Xray : improvement of cavity CT chest 06/15: Slightly smaller (6 cm diameter ) but mostly unchanged cavitary lesion in the right lung, previously thought to represent a cavitating inflammatory process. Lung abscess is certainly a possibility. Fairly extensive bilateral pulmonary parenchymal consolidation, slightly increased from previous exam of 06/05/2017. Likely a combination of pulmonary edema and pneumonia. Small right and trace left pleural effusion, new/increased from the previous study. CT 06/05: 7.8 x 5.3 x 6.6 cm dense opacity in the posterior inferior right upper lobe with a central cavitation. Chest x-ray : right mid lung infiltrate, possible cavitation Rule out tuberculosis, fungal infection, or necrotizing pneumonia. CRP 14 Influenza negative Low-grade fever, SP Status post leukocytosis. Transaminitis ,? 2/2 Hep C cirrhosis- no active Hep C as VL not detected -CT abd/p: Evidence of hepatic cirrhosis. Hepatosplenomegaly. evidence of generalized anasarca, with pleural fluid and generalized subcutaneous edema. Cholelithiasis, also previously reported. Possible diverticulosis. No evidence of diverticulitis US Abd : Cholelithiasis. There is gallbladder wall thickening, likely related to hemodynamic abnormalities Splenomegaly. Evidence of hepatic cirrhosis HIV : NEG Hep Panel B neg , C Ab : +ve , VL not detected leukopenia and TCP 2/2 splenomegaly Seizure disorder History of CVA History of pacemaker placement Hyperlipidemia Hypertension COPD/asthma End-stage renal disease, on hemodialysis Diabetes Anxiety Anemia Echo, ejection fraction 45% to 50%. PLAN: Continue Micafungin abx d#19 (switched from voriconazole given drug-drug interaction with Rifampin) for possible Aspergillosis pending cultures and fungal serologies -Continue Flagyl (in addition with Levaquin will provide anaerobic coverage for possible aspiration/cavitary and now PsA PNA as no isolation of resistant organisms); abx d# 31/35-42 Continue empiric Ethambutol and Levaquin d# 21 empiric for TB pending cultures -Cotninue Rifampin 600mg qd #9 -monitor LFTs; will hold if symptomatic hepatotoxicity or if Tbili>3 or AST , ALR >5x upper limit of normal 07/01 SP Ceftriaxone #10 06/28 SP Amikacin #15 / SP PO Voriconazole #3 / SP Liposomal Ampho #8 / SP IV Vancomycin #14, Meropenem #5 / SP Zosyn d# 10 3/ SP Zithromax D# 6 f/u sputum culture (, fungal, and AFB x3). f/u Coccidioidal ,Galactomannan and Fungitell, Histoplasma ag urine -daily CMP Airborne isolation for now Disposition per Dept of Public Health Subjective Allergies: Coded Allergies: IODINE AND IODIDE CONTAINING PRODUC (Verified Allergy, Mild, itching and pruritis, 06/25/17) Uncoded Allergies: CONTRAST/DYE (Allergy, Intermediate, PRURITIS AND ITCHING, 06/25/17) Subjective afebrile no leukocytosis mild rise in AST and Tbili Objective Vital Signs Last 24 Hour Vital Signs Date Time Temp Pulse Resp B/P (MAP) Pulse Ox O2 Delivery O2 Flow Rate FiO2 07/03/17 16:10 Nasal Cannula 3.0 07/03/17 16:09 98.1 70 20 134/83 95 98.1 07/03/17 11:59 142/91 07/03/17 11:47 Nasal Cannula 5.0 07/03/17 11:46 98.4 67 20 142/91 95 98.4 07/03/17 08:03 147/87 07/03/17 08:03 75 147/87 07/03/17 07:50 Nasal Cannula 5.0 07/03/17 07:49 98.6 75 20 147/87 92 98.6 07/03/17 07:18 Nasal Cannula 4.0 36 07/03/17 07:18 78 18 Nasal Cannula 4.0 36 07/03/17 07:18 96 Nasal Cannula 4.0 36 07/03/17 04:38 97.9 07/03/17 04:08 97.9 07/03/17 03:59 97.9 82 18 132/79 96 Nasal Cannula 3.0 97.9 07/03/17 00:00 98.2 74 20 144/80 91 Room Air 98.2 07/03/17 00:00 91 Room Air 07/02/17 23:59 98.1 07/02/17 21:22 84 122/81 07/02/17 20:00 91 Room Air 07/02/17 20:00 98.1 84 18 122/81 91 98.1 07/02/17 19:49 99.5 07/02/17 19:30 Nasal Cannula 4.0 36 07/02/17 19:30 93 Nasal Cannula 4.0 36 07/02/17 19:30 84 18 Nasal Cannula 4.0 36 07/02/17 18:21 Nasal Cannula 5.0 07/02/17 18:19 99.5 70 16 140/87 Nasal Cannula 5.0 99.5 Height (Feet): 5 Height (Inches): 7.00 Weight (Pounds): 234 Objective General Appearance: WD/WN, alert, moderate distress EENT: PERRL/EOMI, normal ENT inspection Neck: non-tender, normal alignment, supple, normal inspection Cardiovascular: normal peripheral pulses, normal rate, regular rhythm, no gallop/murmur, no JVD Respiratory/Chest: Non rebreather; respiratory distress, crackles/rales, rhonchi - bilaterally, expiratory wheezing Abdomen: normal bowel sounds, non tender, soft, no organomegaly, no mass Extremities: normal range of motion 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, no motor/sensory deficits Skin: normal pigmentation, warm/dry Laboratory Tests Test 07/03/17 05:00 Sodium Level 143 MMOL/L (136-145) Potassium Level 3.7 MMOL/L (3.5-5.1) Chloride Level 100 MMOL/L (98-107) Carbon Dioxide Level 35 MMOL/L (21-32) H Anion Gap 8 mmol/L (5-15) Blood Urea Nitrogen 31 mg/dL (7-18) H Creatinine 9.7 MG/DL (0.55-1.30) H Estimat Glomerular Filtration Rate 6.8 mL/min (>60) Glucose Level 120 MG/DL (74-106) H Calcium Level 8.7 MG/DL (8.5-10.1) Total Bilirubin 1.7 MG/DL (0.2-1.0) H Direct Bilirubin 1.2 MG/DL (0.0-0.3) H Aspartate Amino Transf (AST/SGOT) 78 U/L (15-37) H Alanine Aminotransferase (ALT/SGPT) 48 U/L (12-78) Alkaline Phosphatase 129 U/L (46-116) H Total Protein 6.5 G/DL (6.4-8.2) Albumin 2.5 G/DL (3.4-5.0) L Globulin 4.0 g/dL Albumin/Globulin Ratio 0.6 (1.0-2.7) L Current Medications Medications (Trade) Dose Ordered Sig/Jose Route PRN Reason Start Time Stop Time Status Last Admin Dose Admin Acetaminophen (Tylenol) 650 mg Q4H PRN RECTAL Mild Pain (Pain Scale 1-3) 06/16/17 19:00 07/09/17 18:59 Albuterol/ Ipratropium (Albuterol/ Ipratropium) 3 ml Q4H PRN HHN sob 07/02/17 11:30 07/07/17 11:29 Alprazolam (Xanax) 2 mg DAILYPRN PRN ORAL For Anxiety 07/02/17 08:45 07/09/17 08:44 07/02/17 14:16 Carisoprodol (Soma) 350 mg Q6H PRN ORAL MUSCLE SPASMS 06/16/17 19:00 07/14/17 18:59 07/03/17 14:04 Carvedilol (Coreg) 25 mg EVERY 12 HOURS ORAL 07/02/17 21:00 07/19/17 21:00 07/03/17 08:03 Chlorhexidine Gluconate (Mireille-Hex 2%) 1 applic DAILY@1999 TOPIC 06/16/17 20:00 07/05/17 19:59 07/02/17 19:48 Clonidine HCl (Catapres Tab) 0.1 mg Q4H PRN ORAL bp over 160 syst 07/02/17 11:30 07/19/17 11:29 Dextrose (Dextrose 50%) STAT PRN IV Hypoglycemia 06/16/17 19:00 07/14/17 18:59 Docusate Sodium (Colace) 100 mg THREE TIMES A DAY ORAL 07/02/17 13:00 07/18/17 13:00 07/02/17 17:32 Ethambutol HCl (Myambutol) 1,000 mg 3XW ORAL 06/18/17 09:00 07/18/17 23:59 07/02/17 08:25 Hydromorphone HCl (Dilaudid) 1 mg Q4H PRN IVP Moderate Pain (Pain Scale 4-6) 07/02/17 11:15 07/09/17 11:14 Hydromorphone HCl (Dilaudid) 2 mg Q4H PRN IVP Severe Pain (Pain Scale 7-10) 07/02/17 11:15 07/09/17 11:14 07/03/17 16:10 Levofloxacin (Levaquin) 750 mg EVERY OTHER DAY@1999 ORAL 06/17/17 20:00 07/07/17 19:59 07/01/17 20:34 Lisinopril (Prinivil) 20 mg BID ORAL 07/02/17 18:00 07/19/17 18:00 07/03/17 08:03 Metronidazole (Flagyl) 500 mg Q8HR ORAL 06/17/17 22:00 07/07/17 21:59 07/03/17 14:00 Micafungin Sodium 100 mg/Dextrose 110 ml @ 110 mls/hr Q24H IVPB 07/01/17 20:00 07/08/17 19:59 07/02/17 19:48 Nitroglycerin (Ntg) 0.4 mg Q5M PRN SL Prn Chest Pain 07/02/17 11:30 07/19/17 11:29 Nitroglycerin (Ntg) 1 patch Q24H TDERMAL 07/02/17 11:30 07/19/17 11:30 07/03/17 11:59 Ondansetron HCl (Zofran) 4 mg Q6H PRN IVP Nausea & Vomiting 06/16/17 18:30 07/14/17 18:29 07/03/17 08:02 Pantoprazole (Protonix) 40 mg ACBREAKFAST ORAL 06/17/17 06:30 07/15/17 06:29 07/03/17 05:09 Polyethylene Glycol (Miralax) 17 gm DAILYPRN PRN ORAL Constipation 06/16/17 18:30 07/14/17 18:29 Promethazine HCl/ Codeine (Phenergan with Codeine) 5 ml Q4H PRN ORAL For Cough 07/03/17 10:30 07/22/17 10:30 Rifampin (Rifadin) 600 mg DAILY ORAL 06/25/17 17:00 07/25/17 16:59 07/03/17 08:02 Sevelamer Carbonate (Renvela) 2,400 mg THREE TIMES A DAY ORAL 06/16/17 18:45 07/16/17 18:44 07/03/17 12:00 Temazepam (Restoril) 15 mg HSPRN PRN ORAL Insomnia 07/02/17 21:00 07/09/17 20:59 07/03/17 00:00 Aleja Crocker M.D. Jul 03, 2017 16:45
[2017-07-03] MEDS: ALPRAZolam 0.5mg tab ORAL PRN (17:07)
[2017-07-03 20:00] VITALS: BP 117/69
[2017-07-03] MEDS: Dyna-Hex 2% Top Sol 2oz TOPIC SCH (20:23)
[2017-07-03] MEDS: Micafungin 100 MG in D5W 110 ML IVPB SCH (20:23)
--- NOTE | 2017-07-03 20:24 | General Progress Note ---
Assessment/Plan Assessment/Plan Assessment - N/V, ? etiology, ? related to GB - Anemia, multifactorial - OB (+) Stool - w/u deferred due to respiratory status - ESRD/HD - DM - HTN - COPD - Cavitary lung disease - gallstones - RUQ TTP and improving LFT - abnormal GB ultrasound - Thrombocytopenia - cirrhotic appearing liver on CT - Hepatitis C Ab (+)/ PCR (-) - Poor prognosis Recommendations - PO as tolerated - Check KUB and HIDA CCK - monitor LFT - slightly elevated - abx per ID - transfuse PRN - Acid blockade - Defer EGD/Colon a this time Subjective Allergies: Coded Allergies: IODINE AND IODIDE CONTAINING PRODUC (Verified Allergy, Mild, itching and pruritis, 06/25/17) Uncoded Allergies: CONTRAST/DYE (Allergy, Intermediate, PRURITIS AND ITCHING, 06/25/17) Subjective above noted now states he has been vomiting for a few days some epigastric and RUQ discomfort Objective Last 24 Hour Vital Signs Date Time Temp Pulse Resp B/P (MAP) Pulse Ox O2 Delivery O2 Flow Rate FiO2 07/03/17 17:07 134/83 07/03/17 16:10 Nasal Cannula 3.0 07/03/17 16:09 98.1 70 20 134/83 95 98.1 07/03/17 11:59 142/91 07/03/17 11:47 Nasal Cannula 5.0 07/03/17 11:46 98.4 67 20 142/91 95 98.4 07/03/17 08:03 147/87 07/03/17 08:03 75 147/87 07/03/17 07:50 Nasal Cannula 5.0 07/03/17 07:49 98.6 75 20 147/87 92 98.6 07/03/17 07:18 Nasal Cannula 4.0 36 07/03/17 07:18 78 18 Nasal Cannula 4.0 36 07/03/17 07:18 96 Nasal Cannula 4.0 36 07/03/17 04:38 97.9 07/03/17 04:08 97.9 07/03/17 03:59 97.9 82 18 132/79 96 Nasal Cannula 3.0 97.9 07/03/17 00:00 98.2 74 20 144/80 91 Room Air 98.2 07/03/17 00:00 91 Room Air 07/02/17 23:59 98.1 07/02/17 21:22 84 122/81 Intake and Output 07/02/17 07/03/17 19:00 07:00 Intake Total 240 ml 710 ml Output Total 3000 ml Balance -2760 ml 710 ml Intake Oral 240 ml 600 ml IV Total 110 ml Hemodialysis UF 3000 ml # Voids 1 Laboratory Tests 07/03/17 05:00: Sodium Level 143, Potassium Level 3.7, Chloride Level 100, Carbon Dioxide Level 35H, Anion Gap 8, Blood Urea Nitrogen 31H, Creatinine 9.7H, Estimat Glomerular Filtration Rate 6.8, Glucose Level 120H, Calcium Level 8.7, Total Bilirubin 1.7H , Direct Bilirubin 1.2H, Aspartate Amino Transf (AST/SGOT) 78H, Alanine Aminotransferase (ALT/SGPT) 48, Alkaline Phosphatase 129H, Total Protein 6.5, Albumin 2.5L, Globulin 4.0, Albumin/Globulin Ratio 0.6L Height (Feet): 5 Height (Inches): 7.00 Weight (Pounds): 234 Objective WDWN AA Man NCAT supple CTA RRR Soft mildly distended, (+) improved RUQ TTP, (+) trunk edema (+) leg edema PERCY JOYNER Jul 03, 2017 20:24
--- NOTE | 2017-07-03 20:46 | Internal Med Progress Note ---
Subjective Physician Name Chaitanya Weinstein Attending Physician Chaitanya Weinstein MD Current Medications Medications (Trade) Dose Ordered Sig/Jose Route PRN Reason Start Time Stop Time Status Last Admin Dose Admin Acetaminophen (Tylenol) 650 mg Q4H PRN RECTAL Mild Pain (Pain Scale 1-3) 06/16/17 19:00 07/09/17 18:59 Albuterol/ Ipratropium (Albuterol/ Ipratropium) 3 ml Q4H PRN HHN sob 07/02/17 11:30 07/07/17 11:29 Alprazolam (Xanax) 2 mg DAILYPRN PRN ORAL For Anxiety 07/02/17 08:45 07/09/17 08:44 07/03/17 17:07 Carisoprodol (Soma) 350 mg Q6H PRN ORAL MUSCLE SPASMS 06/16/17 19:00 07/14/17 18:59 07/03/17 14:04 Carvedilol (Coreg) 25 mg EVERY 12 HOURS ORAL 07/02/17 21:00 07/19/17 21:00 07/03/17 20:26 Chlorhexidine Gluconate (Mireille-Hex 2%) 1 applic DAILY@2000 TOPIC 07/03/17 20:00 08/02/17 19:59 07/03/17 20:23 Clonidine HCl (Catapres Tab) 0.1 mg Q4H PRN ORAL bp over 160 syst 07/02/17 11:30 07/19/17 11:29 Dextrose (Dextrose 50%) STAT PRN IV Hypoglycemia 06/16/17 19:00 07/14/17 18:59 Docusate Sodium (Colace) 100 mg THREE TIMES A DAY ORAL 07/02/17 13:00 07/18/17 13:00 07/02/17 17:32 Ethambutol HCl (Myambutol) 1,000 mg 3XW ORAL 06/18/17 09:00 07/18/17 23:59 07/02/17 08:25 Heparin Sodium/ Sodium Chloride (Heparin 2000 units/Ns 1000ml premix) 2,000 unit ONCE PRN INJ PICC line placement 07/04/17 11:00 07/04/17 23:59 Hydromorphone HCl (Dilaudid) 1 mg Q4H PRN IVP Moderate Pain (Pain Scale 4-6) 07/02/17 11:15 07/09/17 11:14 Hydromorphone HCl (Dilaudid) 2 mg Q4H PRN IVP Severe Pain (Pain Scale 7-10) 07/02/17 11:15 07/09/17 11:14 07/03/17 20:24 Levofloxacin (Levaquin) 750 mg EVERY OTHER DAY@2000 ORAL 06/17/17 20:00 07/07/17 19:59 07/03/17 20:23 Lidocaine HCl (Xylocaine 1% 30ml) 30 ml ONCE PRN INJ PICC line placement 07/04/17 11:00 07/04/17 23:59 Lisinopril (Prinivil) 20 mg BID ORAL 07/02/17 18:00 07/19/17 18:00 07/03/17 17:07 Metronidazole (Flagyl) 500 mg Q8HR ORAL 06/17/17 22:00 07/07/17 21:59 07/03/17 14:00 Micafungin Sodium 100 mg/Dextrose 110 ml @ 110 mls/hr Q24H IVPB 07/01/17 20:00 07/08/17 19:59 07/03/17 20:23 Nitroglycerin (Ntg) 0.4 mg Q5M PRN SL Prn Chest Pain 07/02/17 11:30 07/19/17 11:29 Nitroglycerin (Ntg) 1 patch Q24H TDERMAL 07/02/17 11:30 07/19/17 11:30 07/03/17 11:59 Ondansetron HCl (Zofran) 4 mg Q6H PRN IVP Nausea & Vomiting 06/16/17 18:30 07/14/17 18:29 07/03/17 08:02 Pantoprazole (Protonix) 40 mg ACBREAKFAST ORAL 06/17/17 06:30 07/15/17 06:29 07/03/17 05:09 Polyethylene Glycol (Miralax) 17 gm DAILYPRN PRN ORAL Constipation 06/16/17 18:30 07/14/17 18:29 Promethazine HCl/ Codeine (Phenergan with Codeine) 5 ml Q4H PRN ORAL For Cough 07/03/17 10:30 07/22/17 10:30 Rifampin (Rifadin) 600 mg DAILY ORAL 06/25/17 17:00 07/25/17 16:59 07/03/17 08:02 Sevelamer Carbonate (Renvela) 2,400 mg THREE TIMES A DAY ORAL 06/16/17 18:45 07/16/17 18:44 07/03/17 17:07 Temazepam (Restoril) 15 mg HSPRN PRN ORAL Insomnia 07/02/17 21:00 07/09/17 20:59 07/03/17 00:00 Allergies: Coded Allergies: IODINE AND IODIDE CONTAINING PRODUC (Verified Allergy, Mild, itching and pruritis, 06/25/17) Uncoded Allergies: CONTRAST/DYE (Allergy, Intermediate, PRURITIS AND ITCHING, 06/25/17) Subjective awake, responsive , NAD Objective Last Vital Signs Date Time Temp Pulse Resp B/P (MAP) Pulse Ox O2 Delivery O2 Flow Rate FiO2 07/03/17 20:35 96 Nasal Cannula 4.0 36 07/03/17 20:35 69 18 07/03/17 20:26 117/69 07/03/17 20:24 98.1 Laboratory Tests Test 07/03/17 05:00 Sodium Level 143 MMOL/L (136-145) Potassium Level 3.7 MMOL/L (3.5-5.1) Chloride Level 100 MMOL/L (98-107) Carbon Dioxide Level 35 MMOL/L (21-32) H Anion Gap 8 mmol/L (5-15) Blood Urea Nitrogen 31 mg/dL (7-18) H Creatinine 9.7 MG/DL (0.55-1.30) H Estimat Glomerular Filtration Rate 6.8 mL/min (>60) Glucose Level 120 MG/DL (74-106) H Calcium Level 8.7 MG/DL (8.5-10.1) Total Bilirubin 1.7 MG/DL (0.2-1.0) H Direct Bilirubin 1.2 MG/DL (0.0-0.3) H Aspartate Amino Transf (AST/SGOT) 78 U/L (15-37) H Alanine Aminotransferase (ALT/SGPT) 48 U/L (12-78) Alkaline Phosphatase 129 U/L (46-116) H Total Protein 6.5 G/DL (6.4-8.2) Albumin 2.5 G/DL (3.4-5.0) L Globulin 4.0 g/dL Albumin/Globulin Ratio 0.6 (1.0-2.7) L Intake and Output 07/02/17 07/03/17 19:00 07:00 Intake Total 240 ml 710 ml Output Total 3000 ml Balance -2760 ml 710 ml Intake Oral 240 ml 600 ml IV Total 110 ml Hemodialysis UF 3000 ml # Voids 1 Objective General: No acute distress, awake and alert HEENT: NCAT, sclera anicteric, PERRL, EOMI. Neck: Supple, no significant jugular venous distention, Right IJ cath. Lungs: Good inspiratory effort, no Wheeze or Rales. Heart: Regular rate and rhythm, normal S1/S2, no murmur Abdomen: soft, nontender, nondistended. Normoactive bowel sounds. Obesity Extremities: No Cyanosis , clubbing +2 LE's edema. Neuro: A&O x 3, Able to move all extremities Skin: warm, no rashes Assessment/Plan Assessment/Plan Right upper lobe cavitary mass Necrotizing PNA with cavitating lesion RUL r/o TB Acute hypoxemic RF requiring BiPAP -resolved Pleuritic chest pain likely due to necrotizing PNA . Elevated troponin Systolic CHF ( recent negative reversible perfusion defect.) cardiomyopathy pulmonary edema Asthma. End-stage renal disease, on hemodialysis. Hypertensive urgency . Anemia of chronic disease. History of intracardiac defibrillator placement. Prior history of cerebrovascular accident. ESRD on HD thrombocytopenia transaminitis hepatitis C liver cirrhosis cholelithiasis Plan: Monitor Labs and culture Full code respiratory isolation sitter in room Abx: Micafungin, Flagyl, Ethambutol and Levaquin, Rifampin 600mg Chaitanya Weinstein MD Jul 03, 2017 20:46
--- NOTE | 2017-07-03 23:34 | General Progress Note ---
Assessment/Plan Assessment/Plan #. Anemia secondary to chronic disease. --> Hemoglobin levels currently ~8, has been above goal and does not need transfusion at this time --> S/P abd CAT scan revealing evidence of hepatic cirrhosis. --> Hepatosplenomegaly. Ascites. There is also evidence of generalized anasarca , with pleural fluid and generalized subcutaneous edema --> Continue to closely monitor and trend cbc daily. --> Anemia workup completed and reviewed. Iron 42, TIBC 180, Ferritin 593, B12 876. --> Ferritin is >500, hgb goal is >7 --> Anemia w/u has been reviewed --> ++Occult blood. Consider GI Services and Recs. --> Abd pain improved on pain management #. Anemia of kidney disease --> HD as needed per nephrology team --> Monitor closely. #. Generalized body ache related to fluid overload. #. End-stage renal disease, on hemodialysis as needed --> Monitor. S/P HD. #. Tachycardia, to be seen by Cardiology Service, isolated T-wave and ST- segment depression in V6. --> HR has been ~80-90bpm --> S/P Chest CT -- Evidence of worsening CHF/interstitial edema. --> Monitor for improvement. #. Elevated BNP, potentially related to underlying CKD. #. Cardiomegaly. S/P Chest Xray --> Persistent but slightly decreased size of known right lung cavitary lesion. --> Persistent extensive interstitial and bilateral airspace opacities. --> Improved. Subjective Date patient seen: Jul 03, 2017 Constitutional: Denies: no symptoms, chills, diaphoresis, fever, malaise, weakness, other HEENT: Denies: no symptoms, eye pain, blurred vision, tearing, double vision, ear pain, ear discharge, nose pain, nose congestion, throat pain, throat swelling, mouth pain, mouth swelling, other Cardiovascular: Denies: no symptoms, chest pain, edema, irregular heart rate, lightheadedness, palpitations, syncope, other Respiratory: Denies: no symptoms, cough, orthopnea, shortness of breath, SOB with excertion, SOB at rest, sputum, stridor, wheezing, other Gastrointestinal/Abdominal: Denies: no symptoms, abdomen distended, abdominal pain, black stools, tarry stools, blood in stool, constipated, diarrhea, difficulty swallowing, nausea, poor appetite, poor fluid intake, rectal bleeding , vomiting, other Genitourinary: Denies: no symptoms, burning, discharge, frequency, flank pain, hematuria, incontinence, pain, urgency, other Neurologic/Psychiatric: Denies: no symptoms, anxiety, depressed, emotional problems, headache, numbness, paresthesia, pre-existing deficit, seizure, tingling, tremors, weakness, other Hematologic/Lymphatic: Reports: anemia Allergies: Coded Allergies: IODINE AND IODIDE CONTAINING PRODUC (Verified Allergy, Mild, itching and pruritis, 06/25/17) Uncoded Allergies: CONTRAST/DYE (Allergy, Intermediate, PRURITIS AND ITCHING, 06/25/17) Subjective NAD. No fever or chills. Objective Last 24 Hour Vital Signs Date Time Temp Pulse Resp B/P (MAP) Pulse Ox O2 Delivery O2 Flow Rate FiO2 07/03/17 20:54 98.1 07/03/17 20:35 96 Nasal Cannula 4.0 36 07/03/17 20:35 Nasal Cannula 4.0 36 07/03/17 20:35 69 18 Nasal Cannula 4.0 36 07/03/17 20:26 78 117/69 07/03/17 20:24 98.1 07/03/17 20:00 97.2 78 18 117/69 90 97.2 07/03/17 17:07 134/83 07/03/17 16:10 Nasal Cannula 3.0 07/03/17 16:09 98.1 70 20 134/83 95 98.1 07/03/17 11:59 142/91 07/03/17 11:47 Nasal Cannula 5.0 07/03/17 11:46 98.4 67 20 142/91 95 98.4 07/03/17 08:03 147/87 07/03/17 08:03 75 147/87 07/03/17 07:50 Nasal Cannula 5.0 07/03/17 07:49 98.6 75 20 147/87 92 98.6 07/03/17 07:18 Nasal Cannula 4.0 36 07/03/17 07:18 78 18 Nasal Cannula 4.0 36 07/03/17 07:18 96 Nasal Cannula 4.0 36 07/03/17 04:08 97.9 07/03/17 03:59 97.9 82 18 132/79 96 Nasal Cannula 3.0 97.9 07/03/17 00:00 98.2 74 20 144/80 91 Room Air 98.2 07/03/17 00:00 91 Room Air 07/02/17 23:59 98.1 Intake and Output 07/02/17 07/03/17 19:00 07:00 Intake Total 240 ml 710 ml Output Total 3000 ml Balance -2760 ml 710 ml Intake Oral 240 ml 600 ml IV Total 110 ml Hemodialysis UF 3000 ml # Voids 1 Laboratory Tests 07/03/17 05:00: Sodium Level 143, Potassium Level 3.7, Chloride Level 100, Carbon Dioxide Level 35H, Anion Gap 8, Blood Urea Nitrogen 31H, Creatinine 9.7H, Estimat Glomerular Filtration Rate 6.8, Glucose Level 120H, Calcium Level 8.7, Total Bilirubin 1.7H , Direct Bilirubin 1.2H, Aspartate Amino Transf (AST/SGOT) 78H, Alanine Aminotransferase (ALT/SGPT) 48, Alkaline Phosphatase 129H, Total Protein 6.5, Albumin 2.5L, Globulin 4.0, Albumin/Globulin Ratio 0.6L Height (Feet): 5 Height (Inches): 7.00 Weight (Pounds): 234 General Appearance: no apparent distress Respiratory/Chest: decreased breath sounds Abdomen: soft Irving Parker MD Jul 03, 2017 23:34
[2017-07-04] VITALS (9 sets, daily range): BP systolic 128–148; BP diastolic 75–99
[2017-07-04] MEDS: metroNIDAZOLE 500mg tab ORAL SCH ×3 (05:19→20:55)
[2017-07-04 07:35] LABS: HEMATOCRIT 28.8 % (42.0-52.0); HEMOGLOBIN 8.9 G/DL (14.2-18.0); MEAN CORPUSCULAR VOLUME 101 FL (80-99); PLATELET COUNT 69 K/UL (150-450); RED BLOOD COUNT 2.86 M/UL (4.70-6.10); RED CELL DISTRIBUTION WIDTH 21.5 % (11.6-14.8); WHITE BLOOD COUNT 7.4 K/UL (4.8-10.8)
[2017-07-04 08:04] LABS: ALANINE AMINOTRANSFERASE 37 U/L (12-78); ALBUMIN 2.4 G/DL (3.4-5.0); ALBUMIN/GLOBULIN RATIO 0.6 (1.0-2.7); ALKALINE PHOSPHATASE 126 U/L (46-116); ANION GAP 7 mmol/L (5-15); ASPARTATE AMINO TRANSFERASE 44 U/L (15-37); BILIRUBIN,TOTAL 1.7 MG/DL (0.2-1.0); BLOOD UREA NITROGEN 39 mg/dL (7-18); CALCIUM 8.6 MG/DL (8.5-10.1); CARBON DIOXIDE 35 MMOL/L (21-32); CHLORIDE 97 MMOL/L (98-107); CREATININE 10.8 MG/DL (0.55-1.30); POTASSIUM 3.4 MMOL/L (3.5-5.1); SODIUM 139 MMOL/L (136-145)
[2017-07-04 08:05] LABS: BILIRUBIN,DIRECT 1.1 MG/DL (0.0-0.3)
[2017-07-04] MEDS: Docusate 100mg cap ORAL SCH ×3 (08:10→17:08)
[2017-07-04] MEDS: Carvedilol 25mg Tab ORAL SCH ×2 (08:11→20:39)
[2017-07-04] MEDS: Lisinopril 20mg tab ORAL SCH ×2 (08:11→18:38)
[2017-07-04] MEDS: ALPRAZolam 0.5mg tab ORAL PRN (09:38)
--- NOTE | 2017-07-04 10:30 | Pulmonology Progress Note ---
Assessment/Plan Assessment/Plan ASSESSMENT R upper lobe cavitary mass Necrotizing PNA with cavitating lesion RUL r/o TB Acute hypoxemic RF requiring BiPAP -resolved Pleuritic chest pain likely due to necrotizing PNA . Elevated troponin Systolic CHF ( recent negative reversible perfusion defect.) cardiomyopathy pulmonary edema Asthma. End-stage renal disease, on hemodialysis. Hypertensive urgency . Anemia of chronic disease. History of intracardiac defibrillator placement. Prior history of cerebrovascular accident. ESRD on HD thrombocytopenia transaminitis hepatitis C liver cirrhosis cholelithiasis PLAN OF CARE MS resp isolation CT chest 06/26 -Further reduction in size of previously demonstrated thick walled right upper lobe cavitary mass. Currently measures 6 cm AP by 5.2 cm transverse by 3.9 cm craniocaudad, previously approximately 7.8 x 4.9 x 5.2 cm. This was previously thought to most likely represent a cavitary inflammatory mass, and the interim reduction in size certainly supports that. Much less likely a cavitary neoplasm CT chest 06/15- Slightly smaller but mostly unchanged cavitary lesion in the right lung, previously thought to represent a cavitating inflammatory process. Lung abscess is certainly a possibility initial CT chest with evidence of necrotizing PNA with cavitary lesion - 7.8 x 5.3 x 6.6 cm dense opacity in the posterior inferior right upper lobe with a central cavitation. T-SPOT-Neg ; sputum AFB x 3- Neg MTB by PCR x2 -neg cryptococcus Ag, Histo Ab , Blasto ab-all neg ; serology for Asp pending sputum cx + Providencia/Pseudomonas Ethambutol , Levaquin and Rifaximin, monitor LFT-down to normal, cont Flagyl per ID for anaerobic coverage fup with fungal serology and AFB culture Micafungin to cover for possible Aspergilloses PICC today O2 titrate, pulm toilet BiPAP at HS and prn HIV negative blood cx negative, influenza screen negative a/tussive prn cardio follows BP management with [facility] and [facility] medical management for SHF nephro follows HD as per nephro monitor renal parameters, lytes, avoid nephrotoxic heme follows transfuse prn with goal to keep Hgb above 7 anemia w/up c/w anemia of chronic disease and multifactorial as per GI stool OB+ x1 monitor PLT count- better off Heparin SCD Venous Duplex BLE- negative GI follows hep panel + hep C, no viral load , thus no active infection cirrhosis likely 2 to hep C abd US + cholelithiasis, HSM, surgeon consulted CT A/P with hepatic cirrhosis, HSM, anasarca and cholelithiasis, no evidence of acute cholecystis, no surgical intervention necessary per GI defer EGD/colon for now add sleeping pill cont resp isolation disposition after [facility] clearance case discussed and evaluated by supervising physician Subjective Allergies: Coded Allergies: IODINE AND IODIDE CONTAINING PRODUC (Verified Allergy, Mild, itching and pruritis, 06/25/17) Uncoded Allergies: CONTRAST/DYE (Allergy, Intermediate, PRURITIS AND ITCHING, 06/25/17) Subjective on resp isolation for possible TB no SOB no CP on O2 via NC afebrile, no leukocytosis HD today Objective Last 24 Hour Vital Signs Date Time Temp Pulse Resp B/P (MAP) Pulse Ox O2 Delivery O2 Flow Rate FiO2 07/04/17 08:46 98.1 07/04/17 08:16 98.1 07/04/17 08:11 128/84 07/04/17 08:11 134 128/84 07/04/17 08:00 98.1 70 20 134/89 95 98.1 07/04/17 04:15 98.1 07/04/17 04:00 98.4 134 20 128/84 95 Nasal Cannula 5.0 98.4 07/04/17 02:24 98.1 07/04/17 01:25 98.1 07/04/17 00:14 98.1 07/04/17 00:00 97.5 131 21 146/97 97 Nasal Cannula 5.0 97.5 07/03/17 20:35 96 Nasal Cannula 4.0 36 07/03/17 20:35 Nasal Cannula 4.0 36 07/03/17 20:35 69 18 Nasal Cannula 4.0 36 07/03/17 20:26 78 117/69 07/03/17 20:24 98.1 07/03/17 20:00 97.2 78 18 117/69 90 97.2 07/03/17 17:07 134/83 07/03/17 16:10 Nasal Cannula 3.0 07/03/17 16:09 98.1 70 20 134/83 95 98.1 07/03/17 11:59 142/91 07/03/17 11:47 Nasal Cannula 5.0 07/03/17 11:46 98.4 67 20 142/91 95 98.4 Intake and Output 07/03/17 07/04/17 19:00 07:00 Intake Total 240 ml 120 ml Balance 240 ml 120 ml Intake Oral 240 ml 120 ml # Voids 3 # Bowel Movements 4 2 Objective General Appearance: no acute distress, obese, awake, alert, oriented x4 AA male , HEENT: normocephalic, atraumatic, anicteric Respiratory/Chest: decreased breath sounds, ICD LT chest Cardiovascular: normal rate, LUE AV shunt + bruit/thrill, L neck IJ CL intact Abdomen: normal bowel sounds, soft, non tender, obese Extremities: +1 edema BLE Neurologic/Psychiatric: alert, responsive Musculoskeletal: normal muscle bulk Laboratory Tests 07/04/17 06:30: White Blood Count 7.4, Red Blood Count 2.86L, Hemoglobin 8.9L, Hematocrit 28.8L , Mean Corpuscular Volume 101H, Mean Corpuscular Hemoglobin 31.2H, Mean Corpuscular Hemoglobin Concent 30.9L, Red Cell Distribution Width 21.5H, Platelet Count 69L, Mean Platelet Volume 6.9, Neutrophils (%) (Auto) , Lymphocytes (%) (Auto) , Monocytes (%) (Auto) , Eosinophils (%) (Auto) , Basophils (%) (Auto) , Differential Total Cells Counted 100, Neutrophils % ( Manual) 55, Lymphocytes % (Manual) 23, Monocytes % (Manual) 16H, Eosinophils % ( Manual) 6H, Basophils % (Manual) 0, Band Neutrophils 0, Platelet Estimate DecreasedL, Platelet Morphology Normal, Polychromasia 2+, Hypochromasia 1+, Anisocytosis 2+, Macrocytosis 1+, Sodium Level 139, Potassium Level 3.4L, Chloride Level 97L, Carbon Dioxide Level 35H, Anion Gap 7, Blood Urea Nitrogen 39H, Creatinine 10.8H, Estimat Glomerular Filtration Rate 5.9, Glucose Level 108H, Calcium Level 8.6, Total Bilirubin 1.7H, Direct Bilirubin 1.1H, Aspartate Amino Transf (AST/SGOT) 44H, Alanine Aminotransferase (ALT/SGPT) 37, Alkaline Phosphatase 126H, Total Protein 6.7, Albumin 2.4L, Globulin 4.3, Albumin/ Globulin Ratio 0.6L Current Medications Medications (Trade) Dose Ordered Sig/Jose Route PRN Reason Start Time Stop Time Status Last Admin Dose Admin Acetaminophen (Tylenol) 650 mg Q4H PRN RECTAL Mild Pain (Pain Scale 1-3) 06/16/17 19:00 07/09/17 18:59 Albuterol/ Ipratropium (Albuterol/ Ipratropium) 3 ml Q4H PRN HHN sob 07/02/17 11:30 07/07/17 11:29 Alprazolam (Xanax) 2 mg DAILYPRN PRN ORAL For Anxiety 07/02/17 08:45 07/09/17 08:44 07/04/17 09:38 Carisoprodol (Soma) 350 mg Q6H PRN ORAL MUSCLE SPASMS 06/16/17 19:00 07/14/17 18:59 07/04/17 01:25 Carvedilol (Coreg) 25 mg EVERY 12 HOURS ORAL 07/02/17 21:00 07/19/17 21:00 07/04/17 08:11 Chlorhexidine Gluconate (Mireille-Hex 2%) 1 applic DAILY@2000 TOPIC 07/03/17 20:00 08/02/17 19:59 07/03/17 20:23 Clonidine HCl (Catapres Tab) 0.1 mg Q4H PRN ORAL bp over 160 syst 07/02/17 11:30 07/19/17 11:29 Dextrose (Dextrose 50%) STAT PRN IV Hypoglycemia 06/16/17 19:00 07/14/17 18:59 Docusate Sodium (Colace) 100 mg THREE TIMES A DAY ORAL 07/02/17 13:00 07/18/17 13:00 07/02/17 17:32 Ethambutol HCl (Myambutol) 1,000 mg 3XW ORAL 06/18/17 09:00 07/18/17 23:59 07/02/17 08:25 Heparin Sodium/ Sodium Chloride (Heparin 2000 units/Ns 1000ml premix) 2,000 unit ONCE PRN INJ PICC line placement 07/04/17 11:00 07/04/17 23:59 Hydromorphone HCl (Dilaudid) 1 mg Q4H PRN IVP Moderate Pain (Pain Scale 4-6) 07/02/17 11:15 07/09/17 11:14 Hydromorphone HCl (Dilaudid) 2 mg Q4H PRN IVP Severe Pain (Pain Scale 7-10) 07/02/17 11:15 07/09/17 11:14 07/04/17 08:16 Levofloxacin (Levaquin) 750 mg EVERY OTHER DAY@2000 ORAL 06/17/17 20:00 07/07/17 19:59 07/03/17 20:23 Lidocaine HCl (Xylocaine 1% 30ml) 30 ml ONCE PRN INJ PICC line placement 07/04/17 11:00 07/04/17 23:59 Lisinopril (Prinivil) 20 mg BID ORAL 07/02/17 18:00 07/19/17 18:00 07/04/17 08:11 Metronidazole (Flagyl) 500 mg Q8HR ORAL 06/17/17 22:00 07/07/17 21:59 07/04/17 05:19 Micafungin Sodium 100 mg/Dextrose 110 ml @ 110 mls/hr Q24H IVPB 07/01/17 20:00 07/08/17 19:59 07/03/17 20:23 Nitroglycerin (Ntg) 0.4 mg Q5M PRN SL Prn Chest Pain 07/02/17 11:30 07/19/17 11:29 Nitroglycerin (Ntg) 1 patch Q24H TDERMAL 07/02/17 11:30 07/19/17 11:30 07/03/17 11:59 Ondansetron HCl (Zofran) 4 mg Q6H PRN IVP Nausea & Vomiting 06/16/17 18:30 07/14/17 18:29 07/03/17 08:02 Pantoprazole (Protonix) 40 mg ACBREAKFAST ORAL 06/17/17 06:30 07/15/17 06:29 07/04/17 05:19 Polyethylene Glycol (Miralax) 17 gm DAILYPRN PRN ORAL Constipation 06/16/17 18:30 07/14/17 18:29 Promethazine HCl/ Codeine (Phenergan with Codeine) 5 ml Q4H PRN ORAL For Cough 07/03/17 10:30 07/22/17 10:30 Rifampin (Rifadin) 600 mg DAILY ORAL 06/25/17 17:00 07/25/17 16:59 07/04/17 08:11 Sevelamer Carbonate (Renvela) 2,400 mg THREE TIMES A DAY ORAL 06/16/17 18:45 07/16/17 18:44 07/04/17 08:11 Temazepam (Restoril) 15 mg HSPRN PRN ORAL Insomnia 07/02/17 21:00 07/09/17 20:59 07/04/17 05:20 Rohan ([facility])Mariela NP Jul 04, 2017 10:30
[2017-07-04] MEDS ORDERED: Lidocaine 1% Plain 30 ml INJ PRN (11:00)
[2017-07-04] MEDS ORDERED: Heparin 2000 units/Ns 1000ml INJ PRN (11:00)
[2017-07-04] MEDS: Nitroglycerin Patch 0.4mg TDERMAL SCH (11:30)
--- NOTE | 2017-07-04 11:34 | Nephrology Progress Note ---
Assessment/Plan Problem List: (1) ESRD (end stage renal disease) on dialysis (2) Shortness of breath (3) Anemia Assessment worsenning Anemia ESRD , missed HD , admitted with high K and pulmonary edema Acute respiratory distress due to volume overload elevated troponin r/o ACS h/o COPD ? exacerbation HTN urgency Cardiomyopathy L AICD anemia of chronic kidney disease Hx of CVA Plan Plan: Low H&H - consider transfusion HD next 07/04 Transfused Phos binders BP meds adjustment Optimize cardiac status per orders Subjective ROS Limited/Unobtainable: No Constitutional: Reports: malaise Objective Objective Last 24 Hour Vital Signs Date Time Temp Pulse Resp B/P (MAP) Pulse Ox O2 Delivery O2 Flow Rate FiO2 07/04/17 08:46 98.1 07/04/17 08:16 98.1 07/04/17 08:11 128/84 07/04/17 08:11 134 128/84 07/04/17 08:00 98.1 70 20 134/89 95 98.1 07/04/17 04:15 98.1 07/04/17 04:00 98.4 134 20 128/84 95 Nasal Cannula 5.0 98.4 07/04/17 02:24 98.1 07/04/17 01:25 98.1 07/04/17 00:14 98.1 07/04/17 00:00 97.5 131 21 146/97 97 Nasal Cannula 5.0 97.5 07/03/17 20:35 96 Nasal Cannula 4.0 36 07/03/17 20:35 Nasal Cannula 4.0 36 07/03/17 20:35 69 18 Nasal Cannula 4.0 36 07/03/17 20:26 78 117/69 07/03/17 20:24 98.1 07/03/17 20:00 97.2 78 18 117/69 90 97.2 07/03/17 17:07 134/83 07/03/17 16:10 Nasal Cannula 3.0 07/03/17 16:09 98.1 70 20 134/83 95 98.1 07/03/17 11:59 142/91 07/03/17 11:47 Nasal Cannula 5.0 07/03/17 11:46 98.4 67 20 142/91 95 98.4 Intake and Output 07/03/17 07/04/17 19:00 07:00 Intake Total 240 ml 120 ml Balance 240 ml 120 ml Intake Oral 240 ml 120 ml # Voids 3 # Bowel Movements 4 2 Laboratory Tests 07/04/17 06:30: White Blood Count 7.4, Red Blood Count 2.86L, Hemoglobin 8.9L, Hematocrit 28.8L , Mean Corpuscular Volume 101H, Mean Corpuscular Hemoglobin 31.2H, Mean Corpuscular Hemoglobin Concent 30.9L, Red Cell Distribution Width 21.5H, Platelet Count 69L, Mean Platelet Volume 6.9, Neutrophils (%) (Auto) , Lymphocytes (%) (Auto) , Monocytes (%) (Auto) , Eosinophils (%) (Auto) , Basophils (%) (Auto) , Differential Total Cells Counted 100, Neutrophils % ( Manual) 55, Lymphocytes % (Manual) 23, Monocytes % (Manual) 16H, Eosinophils % ( Manual) 6H, Basophils % (Manual) 0, Band Neutrophils 0, Platelet Estimate DecreasedL, Platelet Morphology Normal, Polychromasia 2+, Hypochromasia 1+, Anisocytosis 2+, Macrocytosis 1+, Sodium Level 139, Potassium Level 3.4L, Chloride Level 97L, Carbon Dioxide Level 35H, Anion Gap 7, Blood Urea Nitrogen 39H, Creatinine 10.8H, Estimat Glomerular Filtration Rate 5.9, Glucose Level 108H, Calcium Level 8.6, Total Bilirubin 1.7H, Direct Bilirubin 1.1H, Aspartate Amino Transf (AST/SGOT) 44H, Alanine Aminotransferase (ALT/SGPT) 37, Alkaline Phosphatase 126H, Total Protein 6.7, Albumin 2.4L, Globulin 4.3, Albumin/ Globulin Ratio 0.6L Height (Feet): 5 Height (Inches): 7.00 Weight (Pounds): 238 General Appearance: no apparent distress Objective no change LIAM MONTELONGO Jul 04, 2017 11:34
--- NOTE | 2017-07-04 15:13 | Infectious Diseases Prog Note ---
Assessment/Plan Assessment/Plan A: Cavitary PNA. SCx: Neg ( m/l necrotizing Pneum, r/o Fungal, r/o TB ) ; improving -CT chest 06/25: Since the prior study of 06/15/2017, and. From further reduction in size of previously demonstrated thick walled right upper lobe cavitary mass. This was previously thought to most likely represent a cavitary inflammatory mass, and the interim reduction in size certainly supports that. Much less likely a cavitary neoplasm, but follow-up to resolution is recommended. Markedly improved parenchymal disease bilaterally, since the previous study. Nonetheless , extensive atelectasis and groundglass consolidation persists. Persistent small right pleural effusion, smaller than on the prior study. Resolved left pleural effusion 6 mm nodular opacity in the right upper lobe, not evident previously but likely obscured by surrounding consolidated lung parenchyma. This should be followed up in 6 months to one year depending on results of interim follow-up exams -CXR 06/21: Persistent but slightly decreased size of known right lung cavitary lesion. Persistent extensive interstitial and bilateral airspace opacities. -sp cx 06/05, 06/06 normal resp jordin; repeat sp cx 06/18 PsA (singh S) + Providencia stuarti (S Ceftriaxone, R Cipro) (likely superinfection/HCAP) Rsp status improved but on 06/[address] his condition worsen T-SPOT :Neg AFB x 3 : Neg MTB PCR x2 : neg cryptococcus Ag, Histoplams mycelial Ab , Blastomyces ab : neg ; histoplasma yeast ab (not able to be done due to anticomplementary activity) -Cocci, Asp ag p -Fungitell + 144 (?aspergillosis vs false positive) 06/21 Xray : improvement of cavity CT chest 06/15: Slightly smaller (6 cm diameter ) but mostly unchanged cavitary lesion in the right lung, previously thought to represent a cavitating inflammatory process. Lung abscess is certainly a possibility. Fairly extensive bilateral pulmonary parenchymal consolidation, slightly increased from previous exam of 06/05/2017. Likely a combination of pulmonary edema and pneumonia. Small right and trace left pleural effusion, new/increased from the previous study. CT 06/05: 7.8 x 5.3 x 6.6 cm dense opacity in the posterior inferior right upper lobe with a central cavitation. Chest x-ray : right mid lung infiltrate, possible cavitation Rule out tuberculosis, fungal infection, or necrotizing pneumonia. CRP 14 Influenza negative Low-grade fever, SP Status post leukocytosis. Transaminitis ,? 2/2 Hep C cirrhosis- no active Hep C as VL not detected -CT abd/p: Evidence of hepatic cirrhosis. Hepatosplenomegaly. evidence of generalized anasarca, with pleural fluid and generalized subcutaneous edema. Cholelithiasis, also previously reported. Possible diverticulosis. No evidence of diverticulitis US Abd : Cholelithiasis. There is gallbladder wall thickening, likely related to hemodynamic abnormalities Splenomegaly. Evidence of hepatic cirrhosis HIV : NEG Hep Panel B neg , C Ab : +ve , VL not detected leukopenia and TCP 2/2 splenomegaly Seizure disorder History of CVA History of pacemaker placement Hyperlipidemia Hypertension COPD/asthma End-stage renal disease, on hemodialysis Diabetes Anxiety Anemia Echo, ejection fraction 45% to 50%. PLAN: Switch Micafungin abx d#20 back to PO Voriconazole as Rifampin will be d/c and in expectation for discharge as unable to place PICC line in patient; this is empiric for invasive aspergillosis given elevated Fungitel (asp ag pending) -Continue Flagyl (in addition with Levaquin will provide anaerobic coverage for possible aspiration/cavitary and now PsA PNA as no isolation of resistant organisms); abx d# 32/35-42 Continue empiric Ethambutol and Levaquin d# 22 empiric for TB pending cultures -Switch Rifampin 600mg qd #10 back to Amikacin given rise in Tbili 07/01 SP Ceftriaxone #10 06/28 SP Amikacin #15 06/25 SP PO Voriconazole #3 3/ SP Liposomal Ampho #8 3/ SP IV Vancomycin #14, Meropenem #5 3/ SP Zosyn d# 10 3/ SP Zithromax D# 6 f/u sputum culture (, fungal, and AFB x3). f/u Coccidioidal ,Galactomannan and Fungitell, Histoplasma ag urine -daily CMP Airborne isolation for now Disposition per Dept of Public Health Subjective Allergies: Coded Allergies: IODINE AND IODIDE CONTAINING PRODUC (Verified Allergy, Mild, itching and pruritis, 06/25/17) Uncoded Allergies: CONTRAST/DYE (Allergy, Intermediate, PRURITIS AND ITCHING, 06/25/17) Subjective afebrile no leukocytosis Tbili 1.7, dept of public health recommends switching rifampin back to amikacin Objective Vital Signs Last 24 Hour Vital Signs Date Time Temp Pulse Resp B/P (MAP) Pulse Ox O2 Delivery O2 Flow Rate FiO2 07/04/17 12:49 98.1 07/04/17 12:49 162/99 07/04/17 12:19 98.1 07/04/17 12:00 98.4 85 20 145/99 94 98.4 07/04/17 11:30 128/84 07/04/17 08:16 98.1 07/04/17 08:11 128/84 07/04/17 08:11 134 128/84 07/04/17 08:00 98.1 70 20 134/89 95 98.1 07/04/17 04:15 98.1 07/04/17 04:00 98.4 134 20 128/84 95 Nasal Cannula 5.0 98.4 07/04/17 02:24 98.1 07/04/17 01:25 98.1 07/04/17 00:14 98.1 07/04/17 00:00 97.5 131 21 146/97 97 Nasal Cannula 5.0 97.5 07/03/17 20:35 96 Nasal Cannula 4.0 36 07/03/17 20:35 Nasal Cannula 4.0 36 07/03/17 20:35 69 18 Nasal Cannula 4.0 36 07/03/17 20:26 78 117/69 07/03/17 20:24 98.1 07/03/17 20:00 97.2 78 18 117/69 90 97.2 07/03/17 17:07 134/83 07/03/17 16:10 Nasal Cannula 3.0 07/03/17 16:09 98.1 70 20 134/83 95 98.1 Height (Feet): 5 Height (Inches): 7.00 Weight (Pounds): 238 Objective General Appearance: WD/WN, alert, moderate distress EENT: PERRL/EOMI, normal ENT inspection Neck: non-tender, normal alignment, supple, normal inspection Cardiovascular: normal peripheral pulses, normal rate, regular rhythm, no gallop/murmur, no JVD Respiratory/Chest: Non rebreather; respiratory distress, crackles/rales, rhonchi - bilaterally, expiratory wheezing Abdomen: normal bowel sounds, non tender, soft, no organomegaly, no mass Extremities: normal range of motion 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, no motor/sensory deficits Skin: normal pigmentation, warm/dry Laboratory Tests Test 07/04/17 06:30 White Blood Count 7.4 K/UL (4.8-10.8) Red Blood Count 2.86 M/UL (4.70-6.10) L Hemoglobin 8.9 G/DL (14.2-18.0) L Hematocrit 28.8 % (42.0-52.0) L Mean Corpuscular Volume 101 FL (80-99) H Mean Corpuscular Hemoglobin 31.2 PG (27.0-31.0) H Mean Corpuscular Hemoglobin Concent 30.9 G/DL (32.0-36.0) L Red Cell Distribution Width 21.5 % (11.6-14.8) H Platelet Count 69 K/UL (150-450) L Mean Platelet Volume 6.9 FL (6.5-10.1) Neutrophils (%) (Auto) % (45.0-75.0) Lymphocytes (%) (Auto) % (20.0-45.0) Monocytes (%) (Auto) % (1.0-10.0) Eosinophils (%) (Auto) % (0.0-3.0) Basophils (%) (Auto) % (0.0-2.0) Differential Total Cells Counted 100 Neutrophils % (Manual) 55 % (45-75) Lymphocytes % (Manual) 23 % (20-45) Monocytes % (Manual) 16 % (1-10) H Eosinophils % (Manual) 6 % (0-3) H Basophils % (Manual) 0 % (0-2) Band Neutrophils 0 % (0-8) Platelet Estimate Decreased L Platelet Morphology Normal Polychromasia 2+ Hypochromasia 1+ Anisocytosis 2+ Macrocytosis 1+ Sodium Level 139 MMOL/L (136-145) Potassium Level 3.4 MMOL/L (3.5-5.1) L Chloride Level 97 MMOL/L (98-107) L Carbon Dioxide Level 35 MMOL/L (21-32) H Anion Gap 7 mmol/L (5-15) Blood Urea Nitrogen 39 mg/dL (7-18) H Creatinine 10.8 MG/DL (0.55-1.30) H Estimat Glomerular Filtration Rate 5.9 mL/min (>60) Glucose Level 108 MG/DL (74-106) H Calcium Level 8.6 MG/DL (8.5-10.1) Total Bilirubin 1.7 MG/DL (0.2-1.0) H Direct Bilirubin 1.1 MG/DL (0.0-0.3) H Aspartate Amino Transf (AST/SGOT) 44 U/L (15-37) H Alanine Aminotransferase (ALT/SGPT) 37 U/L (12-78) Alkaline Phosphatase 126 U/L (46-116) H Total Protein 6.7 G/DL (6.4-8.2) Albumin 2.4 G/DL (3.4-5.0) L Globulin 4.3 g/dL Albumin/Globulin Ratio 0.6 (1.0-2.7) L Current Medications Medications (Trade) Dose Ordered Sig/Jose Route PRN Reason Start Time Stop Time Status Last Admin Dose Admin Acetaminophen (Tylenol) 650 mg Q4H PRN RECTAL Mild Pain (Pain Scale 1-3) 06/16/17 19:00 07/09/17 18:59 Albuterol/ Ipratropium (Albuterol/ Ipratropium) 3 ml Q4H PRN HHN sob 07/02/17 11:30 07/07/17 11:29 Alprazolam (Xanax) 2 mg DAILYPRN PRN ORAL For Anxiety 07/02/17 08:45 07/09/17 08:44 07/04/17 09:38 Carisoprodol (Soma) 350 mg Q6H PRN ORAL MUSCLE SPASMS 06/16/17 19:00 07/14/17 18:59 07/04/17 01:25 Carvedilol (Coreg) 25 mg EVERY 12 HOURS ORAL 07/02/17 21:00 07/19/17 21:00 07/04/17 08:11 Chlorhexidine Gluconate (Mireille-Hex 2%) 1 applic DAILY@1999 TOPIC 07/03/17 20:00 08/02/17 19:59 07/03/17 20:23 Clonidine HCl (Catapres Tab) 0.1 mg Q4H PRN ORAL bp over 160 syst 07/02/17 11:30 07/19/17 11:29 07/04/17 12:49 Dextrose (Dextrose 50%) STAT PRN IV Hypoglycemia 06/16/17 19:00 07/14/17 18:59 Docusate Sodium (Colace) 100 mg THREE TIMES A DAY ORAL 07/02/17 13:00 07/18/17 13:00 07/02/17 17:32 Ethambutol HCl (Myambutol) 1,000 mg 3XW ORAL 06/18/17 09:00 07/18/17 23:59 07/02/17 08:25 Heparin Sodium/ Sodium Chloride (Heparin 2000 units/Ns 1000ml premix) 2,000 unit ONCE PRN INJ PICC line placement 07/04/17 11:00 07/04/17 23:59 Hydromorphone HCl (Dilaudid) 1 mg Q4H PRN IVP Moderate Pain (Pain Scale 4-6) 07/02/17 11:15 07/09/17 11:14 Hydromorphone HCl (Dilaudid) 2 mg Q4H PRN IVP Severe Pain (Pain Scale 7-10) 07/02/17 11:15 07/09/17 11:14 07/04/17 12:19 Levofloxacin (Levaquin) 750 mg EVERY OTHER DAY@2000 ORAL 06/17/17 20:00 07/07/17 19:59 07/03/17 20:23 Lidocaine HCl (Xylocaine 1% 30ml) 30 ml ONCE PRN INJ PICC line placement 07/04/17 11:00 07/04/17 23:59 Lisinopril (Prinivil) 20 mg BID ORAL 07/02/17 18:00 07/19/17 18:00 07/04/17 08:11 Metronidazole (Flagyl) 500 mg Q8HR ORAL 06/17/17 22:00 07/07/17 21:59 07/04/17 14:12 Micafungin Sodium 100 mg/Dextrose 110 ml @ 110 mls/hr Q24H IVPB 07/01/17 20:00 07/08/17 19:59 07/03/17 20:23 Nitroglycerin (Ntg) 0.4 mg Q5M PRN SL Prn Chest Pain 07/02/17 11:30 07/19/17 11:29 Nitroglycerin (Ntg) 1 patch Q24H TDERMAL 07/02/17 11:30 07/19/17 11:30 07/04/17 11:30 Ondansetron HCl (Zofran) 4 mg Q6H PRN IVP Nausea & Vomiting 06/16/17 18:30 07/14/17 18:29 07/03/17 08:02 Pantoprazole (Protonix) 40 mg ACBREAKFAST ORAL 06/17/17 06:30 07/15/17 06:29 07/04/17 05:19 Polyethylene Glycol (Miralax) 17 gm DAILYPRN PRN ORAL Constipation 06/16/17 18:30 07/14/17 18:29 Promethazine HCl/ Codeine (Phenergan with Codeine) 5 ml Q4H PRN ORAL For Cough 07/03/17 10:30 07/22/17 10:30 Rifampin (Rifadin) 600 mg DAILY ORAL 06/25/17 17:00 07/25/17 16:59 07/04/17 08:11 Sevelamer Carbonate (Renvela) 2,400 mg THREE TIMES A DAY ORAL 06/16/17 18:45 07/16/17 18:44 07/04/17 12:19 Temazepam (Restoril) 15 mg HSPRN PRN ORAL Insomnia 07/02/17 21:00 07/09/17 20:59 07/04/17 05:20 Aleja Crocker M.D. Jul 04, 2017 15:13
[2017-07-04] MEDS ORDERED: Amikacin Rx to dose MISC PRN (15:15)
--- NOTE | 2017-07-04 15:26 | Diagnostic Imaging Report ---
Indication: Dyspnea Technique: XRAY Chest 1v Comparison: CT chest 06/26/17 Findings: Stable cardiomegaly. PICC line and pacemaker noted. Cavitary lesion in the right midlung slightly decreased in the prior exam, currently measuring 2.1 cm, previously measuring 2.5 cm. Cyst and surrounding right-sided airspace opacities. Left-sided airspace opacities are also slightly decreased. There is no pneumothorax. Osseous structures are stable. Vascular stent in the left axillary region partially visualized. IMPRESSION: Persistent but slightly decreased size of known right lung cavitary lesion. Interstitial opacification/edema and left-sided airspace opacities slightly decreased.
--- NOTE | 2017-07-04 17:10 | Internal Med Progress Note ---
Subjective Date of Service: Jul 04, 2017 Physician Name PiresZoey Attending Physician Chaitanya Weinstein MD Current Medications Medications (Trade) Dose Ordered Sig/Jose Route PRN Reason Start Time Stop Time Status Last Admin Dose Admin Acetaminophen (Tylenol) 650 mg Q4H PRN RECTAL Mild Pain (Pain Scale 1-3) 06/16/17 19:00 07/09/17 18:59 Albuterol/ Ipratropium (Albuterol/ Ipratropium) 3 ml Q4H PRN HHN sob 07/02/17 11:30 07/07/17 11:29 Alprazolam (Xanax) 2 mg DAILYPRN PRN ORAL For Anxiety 07/02/17 08:45 07/09/17 08:44 07/04/17 09:38 Amikacin Protocol (Amikacin pharmacy to dose) 1 ea DAILY PRN MISC Per rx protocol 07/04/17 15:15 08/03/17 15:14 Amikacin Sulfate 1000 mg/Dextrose 114 ml @ 228 mls/hr FRI-FRI-FRI IV 07/04/17 21:00 07/11/17 20:59 Carisoprodol (Soma) 350 mg Q6H PRN ORAL MUSCLE SPASMS 06/16/17 19:00 07/14/17 18:59 07/04/17 01:25 Carvedilol (Coreg) 25 mg EVERY 12 HOURS ORAL 07/02/17 21:00 07/19/17 21:00 07/04/17 08:11 Chlorhexidine Gluconate (Mireille-Hex 2%) 1 applic DAILY@2000 TOPIC 07/03/17 20:00 08/02/17 19:59 07/03/17 20:23 Clonidine HCl (Catapres Tab) 0.1 mg Q4H PRN ORAL bp over 160 syst 07/02/17 11:30 07/19/17 11:29 07/04/17 12:49 Dextrose (Dextrose 50%) STAT PRN IV Hypoglycemia 06/16/17 19:00 07/14/17 18:59 Docusate Sodium (Colace) 100 mg THREE TIMES A DAY ORAL 07/02/17 13:00 07/18/17 13:00 07/02/17 17:32 Ethambutol HCl (Myambutol) 1,000 mg 3XW ORAL 06/18/17 09:00 07/18/17 23:59 07/02/17 08:25 Heparin Sodium/ Sodium Chloride (Heparin 2000 units/Ns 1000ml premix) 2,000 unit ONCE PRN INJ PICC line placement 07/04/17 11:00 07/04/17 23:59 Hydromorphone HCl (Dilaudid) 1 mg Q4H PRN IVP Moderate Pain (Pain Scale 4-6) 07/02/17 11:15 07/09/17 11:14 Hydromorphone HCl (Dilaudid) 2 mg Q4H PRN IVP Severe Pain (Pain Scale 7-10) 07/02/17 11:15 07/09/17 11:14 07/04/17 16:40 Levofloxacin (Levaquin) 750 mg EVERY OTHER DAY@1999 ORAL 06/17/17 20:00 07/07/17 19:59 07/03/17 20:23 Lidocaine HCl (Xylocaine 1% 30ml) 30 ml ONCE PRN INJ PICC line placement 07/04/17 11:00 07/04/17 23:59 Lisinopril (Prinivil) 20 mg BID ORAL 07/02/17 18:00 07/19/17 18:00 07/04/17 08:11 Metronidazole (Flagyl) 500 mg Q8HR ORAL 06/17/17 22:00 07/07/17 21:59 07/04/17 14:12 Nitroglycerin (Ntg) 0.4 mg Q5M PRN SL Prn Chest Pain 07/02/17 11:30 07/19/17 11:29 Nitroglycerin (Ntg) 1 patch Q24H TDERMAL 07/02/17 11:30 07/19/17 11:30 07/04/17 11:30 Ondansetron HCl (Zofran) 4 mg Q6H PRN IVP Nausea & Vomiting 06/16/17 18:30 07/14/17 18:29 07/03/17 08:02 Pantoprazole (Protonix) 40 mg ACBREAKFAST ORAL 06/17/17 06:30 07/15/17 06:29 07/04/17 05:19 Polyethylene Glycol (Miralax) 17 gm DAILYPRN PRN ORAL Constipation 06/16/17 18:30 07/14/17 18:29 Promethazine HCl/ Codeine (Phenergan with Codeine) 5 ml Q4H PRN ORAL For Cough 07/03/17 10:30 07/22/17 10:30 Sevelamer Carbonate (Renvela) 2,400 mg THREE TIMES A DAY ORAL 06/16/17 18:45 07/16/17 18:44 07/04/17 12:19 Temazepam (Restoril) 15 mg HSPRN PRN ORAL Insomnia 07/02/17 21:00 07/09/17 20:59 07/04/17 05:20 Voriconazole (Vfend) 200 mg EVERY 12 HOURS ORAL 07/04/17 21:00 07/11/17 20:59 Allergies: Coded Allergies: IODINE AND IODIDE CONTAINING PRODUC (Verified Allergy, Mild, itching and pruritis, 06/25/17) Uncoded Allergies: CONTRAST/DYE (Allergy, Intermediate, PRURITIS AND ITCHING, 06/25/17) ROS Limited/Unobtainable: No Constitutional: Reports: no symptoms HEENT: Reports: no symptoms Cardiovascular: Reports: no symptoms Respiratory: Reports: shortness of breath Gastrointestinal/Abdominal: Reports: no symptoms Genitourinary: Reports: no symptoms Neurologic/Psychiatric: Reports: no symptoms Subjective 57 YO M admitted with chest pain and shortness of breath. Now pneumonia and candelaria heart failure. Back on nasal canula. Cover for Int Misbah-Dr Weinstein. Objective Last Vital Signs Date Time Temp Pulse Resp B/P (MAP) Pulse Ox O2 Delivery O2 Flow Rate FiO2 07/04/17 16:40 98.1 07/04/17 13:50 148/90 07/04/17 12:00 85 20 94 07/04/17 04:00 Nasal Cannula 5.0 07/03/17 20:35 36 Laboratory Tests Test 07/04/17 06:30 White Blood Count 7.4 K/UL (4.8-10.8) Red Blood Count 2.86 M/UL (4.70-6.10) L Hemoglobin 8.9 G/DL (14.2-18.0) L Hematocrit 28.8 % (42.0-52.0) L Mean Corpuscular Volume 101 FL (80-99) H Mean Corpuscular Hemoglobin 31.2 PG (27.0-31.0) H Mean Corpuscular Hemoglobin Concent 30.9 G/DL (32.0-36.0) L Red Cell Distribution Width 21.5 % (11.6-14.8) H Platelet Count 69 K/UL (150-450) L Mean Platelet Volume 6.9 FL (6.5-10.1) Neutrophils (%) (Auto) % (45.0-75.0) Lymphocytes (%) (Auto) % (20.0-45.0) Monocytes (%) (Auto) % (1.0-10.0) Eosinophils (%) (Auto) % (0.0-3.0) Basophils (%) (Auto) % (0.0-2.0) Differential Total Cells Counted 100 Neutrophils % (Manual) 55 % (45-75) Lymphocytes % (Manual) 23 % (20-45) Monocytes % (Manual) 16 % (1-10) H Eosinophils % (Manual) 6 % (0-3) H Basophils % (Manual) 0 % (0-2) Band Neutrophils 0 % (0-8) Platelet Estimate Decreased L Platelet Morphology Normal Polychromasia 2+ Hypochromasia 1+ Anisocytosis 2+ Macrocytosis 1+ Sodium Level 139 MMOL/L (136-145) Potassium Level 3.4 MMOL/L (3.5-5.1) L Chloride Level 97 MMOL/L (98-107) L Carbon Dioxide Level 35 MMOL/L (21-32) H Anion Gap 7 mmol/L (5-15) Blood Urea Nitrogen 39 mg/dL (7-18) H Creatinine 10.8 MG/DL (0.55-1.30) H Estimat Glomerular Filtration Rate 5.9 mL/min (>60) Glucose Level 108 MG/DL (74-106) H Calcium Level 8.6 MG/DL (8.5-10.1) Total Bilirubin 1.7 MG/DL (0.2-1.0) H Direct Bilirubin 1.1 MG/DL (0.0-0.3) H Aspartate Amino Transf (AST/SGOT) 44 U/L (15-37) H Alanine Aminotransferase (ALT/SGPT) 37 U/L (12-78) Alkaline Phosphatase 126 U/L (46-116) H Total Protein 6.7 G/DL (6.4-8.2) Albumin 2.4 G/DL (3.4-5.0) L Globulin 4.3 g/dL Albumin/Globulin Ratio 0.6 (1.0-2.7) L Intake and Output 07/03/17 07/04/17 19:00 07:00 Intake Total 240 ml 120 ml Balance 240 ml 120 ml Intake Oral 240 ml 120 ml # Voids 3 # Bowel Movements 4 2 Objective General Appearance: WD/WN, alert, moderate distress EENT: PERRL/EOMI, normal ENT inspection Neck: non-tender, normal alignment, supple, normal inspection Cardiovascular: normal peripheral pulses, normal rate, regular rhythm, no gallop/murmur, no JVD Respiratory/Chest: Nasal canula; respiratory distress, crackles/rales, rhonchi - bilaterally, expiratory wheezing Abdomen: normal bowel sounds, non tender, soft, no organomegaly, no mass Extremities: normal range of motion 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 Currently on nasal canula. See pulmonay note. (2) Pleuritic chest pain (3) Hemoptysis Assessment & Plan: Due to pneumonia (4) Pneumonia Assessment & Plan: Providencia and pseudamonas. RUL and cavitary. Concerning for TB. Await AFB cultures-see ID consult. Continue vanco and ethambutol per ID. Continue rocephin, micafungin, flagyl, amikacin, levaquin, and rifampin (5) Shortness of breath (6) ESRD (end stage renal disease) on dialysis Assessment & Plan: See nephrology note. Next Hemodialysis 07/02/17 per nephrology (7) Hyperkalemia Assessment & Plan: Due to renal failure. Hemodialysis 06/12/17 per nephrology (8) COPD (chronic obstructive pulmonary disease) (9) HTN (hypertension) Assessment & Plan: Continue coreg and lisinopril. (10) CHF (congestive heart failure) (11) Elevated troponin Assessment & Plan: ?due to renal failure? See cardiology note. (12) Intractable abdominal pain Assessment & Plan: See surgery note. Await CT abdomen (13) Conjunctivitis Assessment & Plan: start tobramycin Status: not improved Assessment/Plan Discharge planning - coordination with Dept of Public Health pending ZOEY PIRES Jul 04, 2017 17:10
--- NOTE | 2017-07-04 18:00 | General Progress Note ---
Assessment/Plan Assessment/Plan Assessment - ? N/V - not witnessed by staff - gallstones - abnormal LFT - Anemia, multifactorial - OB (+) Stool - w/u deferred due to respiratory status - ESRD/HD - DM - HTN - COPD - Cavitary lung disease - abnormal GB ultrasound - Thrombocytopenia - cirrhotic appearing liver on CT - Hepatitis C Ab (+)/ PCR (-) - Poor prognosis Recommendations - PO as tolerated - Check KUB and HIDA CCK - monitor LFT - slightly elevated - abx per ID - transfuse PRN - Acid blockade - Defer EGD/Colon a this time Subjective Allergies: Coded Allergies: IODINE AND IODIDE CONTAINING PRODUC (Verified Allergy, Mild, itching and pruritis, 06/25/17) Uncoded Allergies: CONTRAST/DYE (Allergy, Intermediate, PRURITIS AND ITCHING, 06/25/17) Subjective above noted d/w RN no vomiting noted by staff Objective Last 24 Hour Vital Signs Date Time Temp Pulse Resp B/P (MAP) Pulse Ox O2 Delivery O2 Flow Rate FiO2 07/04/17 16:40 98.1 07/04/17 13:50 148/90 07/04/17 12:49 98.1 07/04/17 12:49 162/99 07/04/17 12:19 98.1 07/04/17 12:00 98.4 85 20 145/99 94 98.4 07/04/17 11:30 128/84 07/04/17 08:16 98.1 07/04/17 08:11 128/84 07/04/17 08:11 134 128/84 07/04/17 08:00 98.1 70 20 134/89 95 98.1 07/04/17 04:15 98.1 07/04/17 04:00 98.4 134 20 128/84 95 Nasal Cannula 5.0 98.4 07/04/17 02:24 98.1 07/04/17 01:25 98.1 07/04/17 00:14 98.1 07/04/17 00:00 97.5 131 21 146/97 97 Nasal Cannula 5.0 97.5 07/03/17 20:35 96 Nasal Cannula 4.0 36 07/03/17 20:35 Nasal Cannula 4.0 36 07/03/17 20:35 69 18 Nasal Cannula 4.0 36 07/03/17 20:26 78 117/69 07/03/17 20:24 98.1 07/03/17 20:00 97.2 78 18 117/69 90 97.2 Intake and Output 07/03/17 07/04/17 19:00 07:00 Intake Total 240 ml 120 ml Balance 240 ml 120 ml Intake Oral 240 ml 120 ml # Voids 3 # Bowel Movements 4 2 Laboratory Tests 07/04/17 06:30: White Blood Count 7.4, Red Blood Count 2.86L, Hemoglobin 8.9L, Hematocrit 28.8L , Mean Corpuscular Volume 101H, Mean Corpuscular Hemoglobin 31.2H, Mean Corpuscular Hemoglobin Concent 30.9L, Red Cell Distribution Width 21.5H, Platelet Count 69L, Mean Platelet Volume 6.9, Neutrophils (%) (Auto) , Lymphocytes (%) (Auto) , Monocytes (%) (Auto) , Eosinophils (%) (Auto) , Basophils (%) (Auto) , Differential Total Cells Counted 100, Neutrophils % ( Manual) 55, Lymphocytes % (Manual) 23, Monocytes % (Manual) 16H, Eosinophils % ( Manual) 6H, Basophils % (Manual) 0, Band Neutrophils 0, Platelet Estimate DecreasedL, Platelet Morphology Normal, Polychromasia 2+, Hypochromasia 1+, Anisocytosis 2+, Macrocytosis 1+, Sodium Level 139, Potassium Level 3.4L, Chloride Level 97L, Carbon Dioxide Level 35H, Anion Gap 7, Blood Urea Nitrogen 39H, Creatinine 10.8H, Estimat Glomerular Filtration Rate 5.9, Glucose Level 108H, Calcium Level 8.6, Total Bilirubin 1.7H, Direct Bilirubin 1.1H, Aspartate Amino Transf (AST/SGOT) 44H, Alanine Aminotransferase (ALT/SGPT) 37, Alkaline Phosphatase 126H, Total Protein 6.7, Albumin 2.4L, Globulin 4.3, Albumin/ Globulin Ratio 0.6L Height (Feet): 5 Height (Inches): 7.00 Weight (Pounds): 238 Objective WDWN AA Man NCAT supple CTA RRR Soft mildly distended, (+) improved RUQ TTP, (+) trunk edema (+) leg edema PERCY JOYNER Jul 04, 2017 18:00
[2017-07-04] MEDS: Amikacin 1,000 MG in D5W 110 ML IV SCH ×2 (20:37→20:58)
[2017-07-04] MEDS: Dyna-Hex 2% Top Sol 2oz TOPIC SCH (20:37)
--- NOTE | 2017-07-04 22:23 | General Progress Note ---
Assessment/Plan Assessment/Plan #. Anemia secondary to chronic disease. --> Hemoglobin levels improved from yesterday. No blood transfusion required at this time. --> S/P abd CAT scan revealing evidence of hepatic cirrhosis. --> Hepatosplenomegaly. Ascites. There is also evidence of generalized anasarca , with pleural fluid and generalized subcutaneous edema --> Continue to closely monitor and trend cbc daily. --> Anemia workup completed and reviewed. Iron 42, TIBC 180, Ferritin 593, B12 876. --> Ferritin is >500, hgb goal is >7 --> Anemia w/u has been reviewed --> ++Occult blood. Consider GI Services and Recs. --> Abd pain improved on pain management #. Anemia of kidney disease --> HD as needed per nephrology team --> Monitor closely. #. Generalized body ache related to fluid overload. #. End-stage renal disease, on hemodialysis as needed --> Monitor. S/P HD. #. Tachycardia, to be seen by Cardiology Service, isolated T-wave and ST- segment depression in V6. --> HR has been ~80-90bpm --> S/P Chest CT -- Evidence of worsening CHF/interstitial edema. --> Monitor for improvement. #. Elevated BNP, potentially related to underlying CKD. #. Cardiomegaly. S/P Chest Xray --> Persistent but slightly decreased size of known right lung cavitary lesion. --> Persistent extensive interstitial and bilateral airspace opacities. --> Edema improved. Subjective Date patient seen: Jul 04, 2017 Constitutional: Denies: no symptoms, chills, diaphoresis, fever, malaise, weakness, other HEENT: Denies: no symptoms, eye pain, blurred vision, tearing, double vision, ear pain, ear discharge, nose pain, nose congestion, throat pain, throat swelling, mouth pain, mouth swelling, other Cardiovascular: Denies: no symptoms, chest pain, edema, irregular heart rate, lightheadedness, palpitations, syncope, other Respiratory: Denies: no symptoms, cough, orthopnea, shortness of breath, SOB with excertion, SOB at rest, sputum, stridor, wheezing, other Gastrointestinal/Abdominal: Denies: no symptoms, abdomen distended, abdominal pain, black stools, tarry stools, blood in stool, constipated, diarrhea, difficulty swallowing, nausea, poor appetite, poor fluid intake, rectal bleeding , vomiting, other Genitourinary: Denies: no symptoms, burning, discharge, frequency, flank pain, hematuria, incontinence, pain, urgency, other Neurologic/Psychiatric: Denies: no symptoms, anxiety, depressed, emotional problems, headache, numbness, paresthesia, pre-existing deficit, seizure, tingling, tremors, weakness, other Hematologic/Lymphatic: Reports: anemia Allergies: Coded Allergies: IODINE AND IODIDE CONTAINING PRODUC (Verified Allergy, Mild, itching and pruritis, 06/25/17) Uncoded Allergies: CONTRAST/DYE (Allergy, Intermediate, PRURITIS AND ITCHING, 06/25/17) Subjective No vomiting. Hemoglobin levels improved. On pain control. Objective Last 24 Hour Vital Signs Date Time Temp Pulse Resp B/P (MAP) Pulse Ox O2 Delivery O2 Flow Rate FiO2 07/04/17 21:10 97.7 07/04/17 20:40 97.7 07/04/17 20:39 109 130/83 07/04/17 20:05 97.7 109 19 130/83 97 97.7 07/04/17 19:07 Nasal Cannula 4.0 36 07/04/17 19:07 98 Nasal Cannula 4.0 36 07/04/17 19:07 140 26 Nasal Cannula 4.0 36 07/04/17 18:38 148/90 07/04/17 18:30 98.4 136 16 136/94 Nasal Cannula 3.0 98.4 07/04/17 18:30 Nasal Cannula 3.0 07/04/17 16:40 98.1 07/04/17 16:00 98.4 120 20 136/94 99 Room Air 98.4 07/04/17 14:30 Room Air 07/04/17 14:30 99.3 135 16 131/75 Room Air 99.3 07/04/17 13:50 148/90 07/04/17 12:49 162/99 07/04/17 12:19 98.1 07/04/17 12:00 98.4 85 20 145/99 94 98.4 07/04/17 11:30 128/84 07/04/17 08:16 98.1 07/04/17 08:11 128/84 07/04/17 08:11 134 128/84 3/30/18 08:00 98.1 70 20 134/89 95 98.1 07/04/17 04:15 98.1 07/04/17 04:00 98.4 134 20 128/84 95 Nasal Cannula 5.0 98.4 07/04/17 02:24 98.1 07/04/17 01:25 98.1 07/04/17 00:14 98.1 07/04/17 00:00 97.5 131 21 146/97 97 Nasal Cannula 5.0 97.5 Intake and Output 07/03/17 07/04/17 19:00 07:00 Intake Total 240 ml 120 ml Balance 240 ml 120 ml Intake Oral 240 ml 120 ml # Voids 3 # Bowel Movements 4 2 Laboratory Tests 07/04/17 06:30: White Blood Count 7.4, Red Blood Count 2.86L, Hemoglobin 8.9L, Hematocrit 28.8L , Mean Corpuscular Volume 101H, Mean Corpuscular Hemoglobin 31.2H, Mean Corpuscular Hemoglobin Concent 30.9L, Red Cell Distribution Width 21.5H, Platelet Count 69L, Mean Platelet Volume 6.9, Neutrophils (%) (Auto) , Lymphocytes (%) (Auto) , Monocytes (%) (Auto) , Eosinophils (%) (Auto) , Basophils (%) (Auto) , Differential Total Cells Counted 100, Neutrophils % ( Manual) 55, Lymphocytes % (Manual) 23, Monocytes % (Manual) 16H, Eosinophils % ( Manual) 6H, Basophils % (Manual) 0, Band Neutrophils 0, Platelet Estimate DecreasedL, Platelet Morphology Normal, Polychromasia 2+, Hypochromasia 1+, Anisocytosis 2+, Macrocytosis 1+, Sodium Level 139, Potassium Level 3.4L, Chloride Level 97L, Carbon Dioxide Level 35H, Anion Gap 7, Blood Urea Nitrogen 39H, Creatinine 10.8H, Estimat Glomerular Filtration Rate 5.9, Glucose Level 108H, Calcium Level 8.6, Total Bilirubin 1.7H, Direct Bilirubin 1.1H, Aspartate Amino Transf (AST/SGOT) 44H, Alanine Aminotransferase (ALT/SGPT) 37, Alkaline Phosphatase 126H, Total Protein 6.7, Albumin 2.4L, Globulin 4.3, Albumin/ Globulin Ratio 0.6L Height (Feet): 5 Height (Inches): 7.00 Weight (Pounds): 238 Respiratory/Chest: decreased breath sounds Abdomen: soft Edema: trace edema Irving Parker MD Jul 04, 2017 22:23
[2017-07-05] VITALS: BP 118/77
[2017-07-05 04:00] VITALS: BP 130/88
[2017-07-05] MEDS: metroNIDAZOLE 500mg tab ORAL SCH ×3 (05:13→21:30)
[2017-07-05] MEDS: Docusate 100mg cap ORAL SCH ×3 (07:53→18:16)
[2017-07-05] MEDS: Carvedilol 25mg Tab ORAL SCH ×2 (07:53→20:39)
[2017-07-05] MEDS: Lisinopril 20mg tab ORAL SCH ×2 (07:53→18:16)
[2017-07-05] MEDS: ALPRAZolam 0.5mg tab ORAL PRN (07:53)
[2017-07-05 08:00] VITALS: BP 125/80
--- NOTE | 2017-07-05 08:21 | Pulmonology Progress Note ---
Assessment/Plan Assessment/Plan ASSESSMENT R upper lobe cavitary mass Necrotizing PNA with cavitating lesion RUL r/o TB Acute hypoxemic RF requiring BiPAP -resolved Pleuritic chest pain likely due to necrotizing PNA . Elevated troponin Systolic CHF ( recent negative reversible perfusion defect.) cardiomyopathy pulmonary edema Asthma. End-stage renal disease, on hemodialysis. Hypertensive urgency . Anemia of chronic disease. History of intracardiac defibrillator placement. Prior history of cerebrovascular accident. ESRD on HD thrombocytopenia transaminitis hepatitis C liver cirrhosis cholelithiasis PLAN OF CARE MS off resp isolation CXR 07/04- Persistent but slightly decreased size of known right lung cavitary lesion. CT chest 06/26 -Further reduction in size of previously demonstrated thick walled right upper lobe cavitary mass. Currently measures 6 cm AP by 5.2 cm transverse by 3.9 cm craniocaudad, previously approximately 7.8 x 4.9 x 5.2 cm. This was previously thought to most likely represent a cavitary inflammatory mass, and the interim reduction in size certainly supports that. Much less likely a cavitary neoplasm CT chest 06/15- Slightly smaller but mostly unchanged cavitary lesion in the right lung, previously thought to represent a cavitating inflammatory process. Lung abscess is certainly a possibility initial CT chest with evidence of necrotizing PNA with cavitary lesion - 7.8 x 5.3 x 6.6 cm dense opacity in the posterior inferior right upper lobe with a central cavitation. T-SPOT-Neg ; sputum AFB x 3- Neg MTB by PCR x2 -neg cryptococcus Ag, Histo Ab , Blasto ab-all neg ; serology for Asp pending sputum cx + Providencia/Pseudomonas Ethambutol , Levaquin , and Amikacin, off Rifaximin, monitor LFT-, cont Flagyl per ID for anaerobic coverage fup with fungal serology and AFB culture s/p Micafungin to cover for possible Aspergilloses , started on voriconazole PICC unable to be placed O2 titrate, pulm toilet BiPAP at HS and prn HIV negative blood cx negative, influenza screen negative a/tussive prn cardio follows BP management with [facility] and [facility] medical management for SHF nephro follows HD as per nephro monitor renal parameters, lytes, avoid nephrotoxic heme follows transfuse prn with goal to keep Hgb above 7 anemia w/up c/w anemia of chronic disease and multifactorial as per GI stool OB+ x1 monitor PLT count- better off Heparin SCD Venous Duplex BLE- negative GI follows hep panel + hep C, no viral load , thus no active infection cirrhosis likely 2 to hep C abd US + cholelithiasis, HSM, surgeon consulted CT A/P with hepatic cirrhosis, HSM, anasarca and cholelithiasis, no evidence of acute cholecystis, no surgical intervention necessary per GI defer EGD/colon for now add sleeping pill cont resp isolation disposition after [facility] clearance case discussed and evaluated by supervising physician Subjective Allergies: Coded Allergies: IODINE AND IODIDE CONTAINING PRODUC (Verified Allergy, Mild, itching and pruritis, 06/25/17) Uncoded Allergies: CONTRAST/DYE (Allergy, Intermediate, PRURITIS AND ITCHING, 06/25/17) Subjective off resp isolation no SOB no CP on O2 via NC afebrile, no leukocytosis HD done 07/04 Objective Last 24 Hour Vital Signs Date Time Temp Pulse Resp B/P (MAP) Pulse Ox O2 Delivery O2 Flow Rate FiO2 07/05/17 07:53 130/88 07/05/17 07:53 66 130/88 07/05/17 06:27 97.7 07/05/17 05:57 97.7 07/05/17 04:00 97.7 66 20 130/88 98 97.7 07/05/17 01:58 98.1 07/05/17 00:00 98.1 106 17 118/77 97 98.1 07/04/17 20:40 97.7 07/04/17 20:39 109 130/83 07/04/17 20:05 97.7 109 19 130/83 97 97.7 07/04/17 19:07 Nasal Cannula 4.0 36 07/04/17 19:07 98 Nasal Cannula 4.0 36 07/04/17 19:07 140 26 Nasal Cannula 4.0 36 07/04/17 18:38 148/90 07/04/17 18:30 98.4 136 16 136/94 Nasal Cannula 3.0 98.4 07/04/17 18:30 Nasal Cannula 3.0 07/04/17 16:40 98.1 07/04/17 16:00 98.4 120 20 136/94 99 Room Air 98.4 07/04/17 14:30 Room Air 07/04/17 14:30 99.3 135 16 131/75 Room Air 99.3 07/04/17 13:50 148/90 07/04/17 12:49 162/99 07/04/17 12:19 98.1 07/04/17 12:00 98.4 85 20 145/99 94 98.4 07/04/17 11:30 128/84 07/04/17 08:16 98.1 Intake and Output 07/04/17 07/05/17 19:00 07:00 Intake Total 800 ml Output Total 50 ml Balance 750 ml Intake Oral 800 ml Output Urine Total 50 ml # Voids 2 # Bowel Movements 2 2 Objective General Appearance: no acute distress, obese, awake, alert, oriented x4 AA male , HEENT: normocephalic, atraumatic, anicteric Respiratory/Chest: decreased breath sounds, ICD LT chest Cardiovascular: normal rate, LUE AV shunt + bruit/thrill, L neck IJ CL intact Abdomen: normal bowel sounds, soft, non tender, obese Extremities: +1 edema BLE Neurologic/Psychiatric: alert, responsive Musculoskeletal: normal muscle bulk Current Medications Medications (Trade) Dose Ordered Sig/Jose Route PRN Reason Start Time Stop Time Status Last Admin Dose Admin Acetaminophen (Tylenol) 650 mg Q4H PRN RECTAL Mild Pain (Pain Scale 1-3) 06/16/17 19:00 07/09/17 18:59 Albuterol/ Ipratropium (Albuterol/ Ipratropium) 3 ml Q4H PRN HHN sob 07/02/17 11:30 07/07/17 11:29 Alprazolam (Xanax) 2 mg DAILYPRN PRN ORAL For Anxiety 07/02/17 08:45 07/09/17 08:44 07/05/17 07:53 Amikacin Protocol (Amikacin pharmacy to dose) 1 ea DAILY PRN MISC Per rx protocol 07/04/17 15:15 08/03/17 15:14 Amikacin Sulfate 1000 mg/Dextrose 114 ml @ 228 mls/hr MON-WED-FRI IV 07/04/17 21:00 07/11/17 20:59 Carisoprodol (Soma) 350 mg Q6H PRN ORAL MUSCLE SPASMS 06/16/17 19:00 07/14/17 18:59 07/04/17 01:25 Carvedilol (Coreg) 25 mg EVERY 12 HOURS ORAL 07/02/17 21:00 07/19/17 21:00 07/05/17 07:53 Chlorhexidine Gluconate (Mireille-Hex 2%) 1 applic DAILY@1999 TOPIC 07/03/17 20:00 08/02/17 19:59 07/04/17 20:37 Clonidine HCl (Catapres Tab) 0.1 mg Q4H PRN ORAL bp over 160 syst 07/02/17 11:30 07/19/17 11:29 07/04/17 12:49 Dextrose (Dextrose 50%) STAT PRN IV Hypoglycemia 06/16/17 19:00 07/14/17 18:59 Docusate Sodium (Colace) 100 mg THREE TIMES A DAY ORAL 07/02/17 13:00 07/18/17 13:00 07/05/17 07:53 Ethambutol HCl (Myambutol) 1,000 mg 3XW ORAL 06/18/17 09:00 07/18/17 23:59 07/04/17 18:38 Hydromorphone HCl (Dilaudid) 1 mg Q4H PRN IVP Moderate Pain (Pain Scale 4-6) 07/02/17 11:15 07/09/17 11:14 Hydromorphone HCl (Dilaudid) 2 mg Q4H PRN IVP Severe Pain (Pain Scale 7-10) 07/02/17 11:15 07/09/17 11:14 07/05/17 05:57 Levofloxacin (Levaquin) 750 mg EVERY OTHER DAY@1999 ORAL 06/17/17 20:00 07/07/17 19:59 07/03/17 20:23 Lisinopril (Prinivil) 20 mg BID ORAL 07/02/17 18:00 07/19/17 18:00 07/05/17 07:53 Metronidazole (Flagyl) 500 mg Q8HR ORAL 06/17/17 22:00 07/07/17 21:59 07/05/17 05:13 Nitroglycerin (Ntg) 0.4 mg Q5M PRN SL Prn Chest Pain 07/02/17 11:30 07/19/17 11:29 Nitroglycerin (Ntg) 1 patch Q24H TDERMAL 07/02/17 11:30 07/19/17 11:30 07/04/17 11:30 Ondansetron HCl (Zofran) 4 mg Q6H PRN IVP Nausea & Vomiting 06/16/17 18:30 07/14/17 18:29 07/05/17 07:52 Pantoprazole (Protonix) 40 mg ACBREAKFAST ORAL 06/17/17 06:30 07/15/17 06:29 07/05/17 05:13 Polyethylene Glycol (Miralax) 17 gm DAILYPRN PRN ORAL Constipation 06/16/17 18:30 07/14/17 18:29 Promethazine HCl/ Codeine (Phenergan with Codeine) 5 ml Q4H PRN ORAL For Cough 07/03/17 10:30 07/22/17 10:30 Sevelamer Carbonate (Renvela) 2,400 mg THREE TIMES A DAY ORAL 06/16/17 18:45 07/16/17 18:44 07/05/17 07:53 Temazepam (Restoril) 15 mg HSPRN PRN ORAL Insomnia 07/02/17 21:00 07/09/17 20:59 07/04/17 22:23 Voriconazole (Vfend) 200 mg EVERY 12 HOURS ORAL 07/04/17 21:00 07/11/17 20:59 07/05/17 07:54 Rohan ArevaloHudson River State HospitalMariela Fong NP Jul 05, 2017 08:21
[2017-07-05] MEDS ORDERED: Albuterol/Ipratropium 3ml neb HHN PRN (08:30)
--- NOTE | 2017-07-05 09:41 | Diagnostic Imaging Report ---
Indication: Reason For Exam: ABD PAIN Technique: XRAY Abdomen 1v Comparison: None. Findings: There is diffuse haziness in the abdomen. The bowel gas pattern is nonobstructive. The heart is enlarged. There is a pacer wire and the heart. Bony structures are unremarkable. Impression: Diffuse haziness in the abdomen. This may be due to ascites or may be due to body habitus.. Cardiomegaly. Pacer wire and the heart.
[2017-07-05 10:16] LABS: HEMATOCRIT 29.7 % (42.0-52.0); HEMOGLOBIN 8.9 G/DL (14.2-18.0); MEAN CORPUSCULAR VOLUME 103 FL (80-99); PLATELET COUNT 68 K/UL (150-450); RED CELL DISTRIBUTION WIDTH 21.1 % (11.6-14.8); WHITE BLOOD COUNT 5.9 K/UL (4.8-10.8)
[2017-07-05] MEDS: Nitroglycerin Patch 0.4mg TDERMAL SCH (10:27)
--- NOTE | 2017-07-05 10:55 | Nephrology Progress Note ---
Assessment/Plan Problem List: (1) ESRD (end stage renal disease) on dialysis (2) Shortness of breath (3) Anemia Assessment worsenning Anemia ESRD , missed HD , admitted with high K and pulmonary edema Acute respiratory distress due to volume overload elevated troponin r/o ACS h/o COPD ? exacerbation HTN urgency Cardiomyopathy L AICD anemia of chronic kidney disease Hx of CVA Plan Plan: Low H&H - consider transfusion HD next 07/04 Transfused Phos binders BP meds adjustment Optimize cardiac status per orders Subjective ROS Limited/Unobtainable: No Objective Objective Last 24 Hour Vital Signs Date Time Temp Pulse Resp B/P (MAP) Pulse Ox O2 Delivery O2 Flow Rate FiO2 07/05/17 10:27 125/80 07/05/17 09:16 Nasal Cannula 3.0 32 07/05/17 09:15 95 Nasal Cannula 3.0 32 07/05/17 09:15 66 22 Nasal Cannula 3.0 32 07/05/17 08:00 97.9 132 21 125/80 94 Nasal Cannula 2.5 97.9 07/05/17 08:00 112 07/05/17 07:53 130/88 07/05/17 07:53 66 130/88 07/05/17 06:27 97.7 07/05/17 05:57 97.7 07/05/17 04:00 97.7 66 20 130/88 98 97.7 07/05/17 01:58 98.1 07/05/17 00:00 98.1 106 17 118/77 97 98.1 07/04/17 20:40 97.7 07/04/17 20:39 109 130/83 07/04/17 20:05 97.7 109 19 130/83 97 97.7 07/04/17 19:07 Nasal Cannula 4.0 36 07/04/17 19:07 98 Nasal Cannula 4.0 36 07/04/17 19:07 140 26 Nasal Cannula 4.0 36 07/04/17 18:38 148/90 07/04/17 18:30 98.4 136 16 136/94 Nasal Cannula 3.0 98.4 07/04/17 18:30 Nasal Cannula 3.0 07/04/17 16:40 98.1 07/04/17 16:00 98.4 120 20 136/94 99 Room Air 98.4 07/04/17 14:30 Room Air 3/30/18 14:30 99.3 135 16 131/75 Room Air 99.3 07/04/17 13:50 148/90 07/04/17 12:49 162/99 07/04/17 12:19 98.1 07/04/17 12:00 98.4 85 20 145/99 94 98.4 07/04/17 11:30 128/84 Intake and Output 07/04/17 07/05/17 19:00 07:00 Intake Total 800 ml Output Total 50 ml Balance 750 ml Intake Oral 800 ml Output Urine Total 50 ml # Voids 2 # Bowel Movements 2 2 Laboratory Tests 07/05/17 10:00: White Blood Count 5.9, Red Blood Count 2.90L, Hemoglobin 8.9L, Hematocrit 29.7L , Mean Corpuscular Volume 103H, Mean Corpuscular Hemoglobin 30.6, Mean Corpuscular Hemoglobin Concent 29.9L, Red Cell Distribution Width 21.1H, Platelet Count 68L, Mean Platelet Volume 7.8, Neutrophils (%) (Auto) , Lymphocytes (%) (Auto) , Monocytes (%) (Auto) , Eosinophils (%) (Auto) , Basophils (%) (Auto) , Neutrophils % (Manual) [Pending], Lymphocytes % (Manual) [Pending], Platelet Estimate [Pending], Platelet Morphology [Pending], Sodium Level [Pending], Potassium Level [Pending], Chloride Level [Pending], Carbon Dioxide Level [Pending], Blood Urea Nitrogen [Pending], Creatinine [Pending], Estimat Glomerular Filtration Rate [Pending], Glucose Level [Pending], Calcium Level [Pending], Total Bilirubin [Pending], Aspartate Amino Transf (AST/SGOT) [ Pending], Alanine Aminotransferase (ALT/SGPT) [Pending], Alkaline Phosphatase [ Pending], Total Protein [Pending], Albumin [Pending], Globulin [Pending] Height (Feet): 5 Height (Inches): 7.00 Weight (Pounds): 236 General Appearance: no apparent distress Objective no change LIAM MONTELONGO Jul 05, 2017 10:54
[2017-07-05 11:04] LABS: ALANINE AMINOTRANSFERASE 23 U/L (12-78); ALBUMIN 2.3 G/DL (3.4-5.0); ALBUMIN/GLOBULIN RATIO 0.6 (1.0-2.7); ALKALINE PHOSPHATASE 116 U/L (46-116); ANION GAP 5 mmol/L (5-15); BILIRUBIN,TOTAL 1.7 MG/DL (0.2-1.0); BLOOD UREA NITROGEN 31 mg/dL (7-18); CALCIUM 8.4 MG/DL (8.5-10.1); CARBON DIOXIDE 38 MMOL/L (21-32); CHLORIDE 99 MMOL/L (98-107); CREATININE 9.3 MG/DL (0.55-1.30); POTASSIUM 3.5 MMOL/L (3.5-5.1); SODIUM 142 MMOL/L (136-145)
[2017-07-05 11:05] LABS: BILIRUBIN,DIRECT 1.1 MG/DL (0.0-0.3)
[2017-07-05 11:16] LABS: ASPARTATE AMINO TRANSFERASE 43 U/L (15-37)
[2017-07-05 12:00] VITALS: BP 112/78
--- NOTE | 2017-07-05 13:45 | Internal Med Progress Note ---
Subjective Date of Service: Jul 05, 2017 Physician Name Zoey Pires Attending Physician Chaitanya Weinstein MD Current Medications Medications (Trade) Dose Ordered Sig/Jose Route PRN Reason Start Time Stop Time Status Last Admin Dose Admin Acetaminophen (Tylenol) 650 mg Q4H PRN RECTAL Mild Pain (Pain Scale 1-3) 06/16/17 19:00 07/09/17 18:59 Albuterol/ Ipratropium (Albuterol/ Ipratropium) 3 ml Q4H PRN HHN Shortness of Breath 07/05/17 08:30 07/10/17 08:29 Alprazolam (Xanax) 2 mg DAILYPRN PRN ORAL For Anxiety 07/02/17 08:45 07/09/17 08:44 07/05/17 07:53 Amikacin Protocol (Amikacin pharmacy to dose) 1 ea DAILY PRN MISC Per rx protocol 07/04/17 15:15 08/03/17 15:14 Amikacin Sulfate 1000 mg/Dextrose 114 ml @ 228 mls/hr FRI-FRI-FRI IV 07/04/17 21:00 07/11/17 20:59 Carisoprodol (Soma) 350 mg Q6H PRN ORAL MUSCLE SPASMS 06/16/17 19:00 07/14/17 18:59 07/04/17 01:25 Carvedilol (Coreg) 25 mg EVERY 12 HOURS ORAL 07/02/17 21:00 07/19/17 21:00 07/05/17 07:53 Chlorhexidine Gluconate (Mireille-Hex 2%) 1 applic DAILY@2000 TOPIC 07/03/17 20:00 08/02/17 19:59 07/04/17 20:37 Clonidine HCl (Catapres Tab) 0.1 mg Q4H PRN ORAL bp over 160 syst 07/02/17 11:30 07/19/17 11:29 07/04/17 12:49 Dextrose (Dextrose 50%) STAT PRN IV Hypoglycemia 06/16/17 19:00 07/14/17 18:59 Docusate Sodium (Colace) 100 mg THREE TIMES A DAY ORAL 07/02/17 13:00 07/18/17 13:00 07/05/17 13:14 Ethambutol HCl (Myambutol) 1,000 mg 3XW ORAL 06/18/17 09:00 07/18/17 23:59 07/04/17 18:38 Hydromorphone HCl (Dilaudid) 1 mg Q4H PRN IVP Moderate Pain (Pain Scale 4-6) 07/02/17 11:15 07/09/17 11:14 07/05/17 10:27 Hydromorphone HCl (Dilaudid) 2 mg Q4H PRN IVP Severe Pain (Pain Scale 7-10) 07/02/17 11:15 07/09/17 11:14 07/05/17 05:57 Levofloxacin (Levaquin) 750 mg EVERY OTHER DAY@1999 ORAL 06/17/17 20:00 07/07/17 19:59 07/03/17 20:23 Lisinopril (Prinivil) 20 mg BID ORAL 07/02/17 18:00 07/19/17 18:00 07/05/17 07:53 Metronidazole (Flagyl) 500 mg Q8HR ORAL 06/17/17 22:00 07/07/17 21:59 07/05/17 13:14 Nitroglycerin (Ntg) 0.4 mg Q5M PRN SL Prn Chest Pain 07/02/17 11:30 07/19/17 11:29 Nitroglycerin (Ntg) 1 patch Q24H TDERMAL 07/02/17 11:30 07/19/17 11:30 07/05/17 10:27 Ondansetron HCl (Zofran) 4 mg Q6H PRN IVP Nausea & Vomiting 06/16/17 18:30 07/14/17 18:29 07/05/17 07:52 Pantoprazole (Protonix) 40 mg ACBREAKFAST ORAL 06/17/17 06:30 07/15/17 06:29 07/05/17 05:13 Polyethylene Glycol (Miralax) 17 gm DAILYPRN PRN ORAL Constipation 06/16/17 18:30 07/14/17 18:29 Promethazine HCl/ Codeine (Phenergan with Codeine) 5 ml Q4H PRN ORAL For Cough 07/03/17 10:30 07/22/17 10:30 Sevelamer Carbonate (Renvela) 2,400 mg THREE TIMES A DAY ORAL 06/16/17 18:45 07/16/17 18:44 07/05/17 13:14 Temazepam (Restoril) 15 mg HSPRN PRN ORAL Insomnia 07/02/17 21:00 07/09/17 20:59 07/04/17 22:23 Voriconazole (Vfend) 200 mg EVERY 12 HOURS ORAL 07/04/17 21:00 07/11/17 20:59 07/05/17 07:54 Allergies: Coded Allergies: IODINE AND IODIDE CONTAINING PRODUC (Verified Allergy, Mild, itching and pruritis, 06/25/17) Uncoded Allergies: CONTRAST/DYE (Allergy, Intermediate, PRURITIS AND ITCHING, 06/25/17) ROS Limited/Unobtainable: No Constitutional: Reports: no symptoms HEENT: Reports: no symptoms Cardiovascular: Reports: no symptoms Respiratory: Reports: shortness of breath Gastrointestinal/Abdominal: Reports: no symptoms Genitourinary: Reports: no symptoms Neurologic/Psychiatric: Reports: no symptoms Subjective 57 YO M admitted with chest pain and shortness of breath. Now pneumonia and candelaria heart failure. Back on nasal canula. Cover for Int Med-Dr Weinstein. Objective Last Vital Signs Date Time Temp Pulse Resp B/P (MAP) Pulse Ox O2 Delivery O2 Flow Rate FiO2 07/05/17 12:00 98.1 125 21 112/78 98 Nasal Cannula 2.5 98.1 07/05/17 09:16 32 Laboratory Tests Test 07/05/17 10:00 White Blood Count 5.9 K/UL (4.8-10.8) Red Blood Count 2.90 M/UL (4.70-6.10) L Hemoglobin 8.9 G/DL (14.2-18.0) L Hematocrit 29.7 % (42.0-52.0) L Mean Corpuscular Volume 103 FL (80-99) H Mean Corpuscular Hemoglobin 30.6 PG (27.0-31.0) Mean Corpuscular Hemoglobin Concent 29.9 G/DL (32.0-36.0) L Red Cell Distribution Width 21.1 % (11.6-14.8) H Platelet Count 68 K/UL (150-450) L Mean Platelet Volume 7.8 FL (6.5-10.1) Neutrophils (%) (Auto) % (45.0-75.0) Lymphocytes (%) (Auto) % (20.0-45.0) Monocytes (%) (Auto) % (1.0-10.0) Eosinophils (%) (Auto) % (0.0-3.0) Basophils (%) (Auto) % (0.0-2.0) Differential Total Cells Counted 100 Neutrophils % (Manual) 52 % (45-75) Lymphocytes % (Manual) 25 % (20-45) Monocytes % (Manual) 20 % (1-10) H Eosinophils % (Manual) 3 % (0-3) Basophils % (Manual) 0 % (0-2) Band Neutrophils 0 % (0-8) Nucleated Red Blood Cells 3 /100 WBC Platelet Estimate Decreased L Platelet Morphology Normal Polychromasia 1+ Hypochromasia 2+ Poikilocytosis 1+ Anisocytosis 3+ Macrocytosis 1+ Sodium Level 142 MMOL/L (136-145) Potassium Level 3.5 MMOL/L (3.5-5.1) Chloride Level 99 MMOL/L (98-107) Carbon Dioxide Level 38 MMOL/L (21-32) H Anion Gap 5 mmol/L (5-15) Blood Urea Nitrogen 31 mg/dL (7-18) H Creatinine 9.3 MG/DL (0.55-1.30) H Estimat Glomerular Filtration Rate 7.2 mL/min (>60) Glucose Level 119 MG/DL (74-106) H Calcium Level 8.4 MG/DL (8.5-10.1) L Total Bilirubin 1.7 MG/DL (0.2-1.0) H Direct Bilirubin 1.1 MG/DL (0.0-0.3) H Aspartate Amino Transf (AST/SGOT) 43 U/L (15-37) H Alanine Aminotransferase (ALT/SGPT) 23 U/L (12-78) Alkaline Phosphatase 116 U/L (46-116) Total Protein 6.4 G/DL (6.4-8.2) Albumin 2.3 G/DL (3.4-5.0) L Globulin 4.1 g/dL Albumin/Globulin Ratio 0.6 (1.0-2.7) L Intake and Output 07/04/17 07/05/17 19:00 07:00 Intake Total 800 ml Output Total 50 ml Balance 750 ml Intake Oral 800 ml Output Urine Total 50 ml # Voids 2 # Bowel Movements 2 2 Objective General Appearance: WD/WN, alert, moderate distress EENT: PERRL/EOMI, normal ENT inspection Neck: non-tender, normal alignment, supple, normal inspection Cardiovascular: normal peripheral pulses, normal rate, regular rhythm, no gallop/murmur, no JVD Respiratory/Chest: Nasal canula; respiratory distress, crackles/rales, rhonchi - bilaterally, expiratory wheezing Abdomen: normal bowel sounds, non tender, soft, no organomegaly, no mass Extremities: normal range of motion 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 Currently on nasal canula. See pulmonay note. (2) Pleuritic chest pain (3) Hemoptysis Assessment & Plan: Due to pneumonia (4) Pneumonia Assessment & Plan: Providencia and pseudamonas. RUL and cavitary. Concerning for TB. Await AFB cultures-see ID consult. Continue vanco and ethambutol per ID. Continue rocephin, micafungin, flagyl, amikacin, levaquin, and rifampin (5) Shortness of breath (6) ESRD (end stage renal disease) on dialysis Assessment & Plan: See nephrology note. Next Hemodialysis 07/02/17 per nephrology (7) Hyperkalemia Assessment & Plan: Due to renal failure. Hemodialysis 06/12/17 per nephrology (8) COPD (chronic obstructive pulmonary disease) (9) HTN (hypertension) Assessment & Plan: Continue coreg and lisinopril. (10) CHF (congestive heart failure) (11) Elevated troponin Assessment & Plan: ?due to renal failure? See cardiology note. (12) Intractable abdominal pain Assessment & Plan: See surgery note. Await CT abdomen (13) Conjunctivitis Assessment & Plan: start tobramycin Status: not improved Assessment/Plan Discharge planning - coordination with [facility] pending ZOEY PIRES Jul 05, 2017 13:45
[2017-07-05 16:00] VITALS: BP 131/84
--- NOTE | 2017-07-05 19:46 | Infectious Diseases Prog Note ---
Assessment/Plan Assessment/Plan Cavitary PNA. SCx: Neg ( m/l necrotizing Pneum, r/o Fungal, r/o TB ) ; improving -CT chest 06/25: Since the prior study of 06/15/2017, and. From further reduction in size of previously demonstrated thick walled right upper lobe cavitary mass. This was previously thought to most likely represent a cavitary inflammatory mass, and the interim reduction in size certainly supports that. Much less likely a cavitary neoplasm, but follow-up to resolution is recommended. Markedly improved parenchymal disease bilaterally, since the previous study. Nonetheless , extensive atelectasis and groundglass consolidation persists. Persistent small right pleural effusion, smaller than on the prior study. Resolved left pleural effusion 6 mm nodular opacity in the right upper lobe, not evident previously but likely obscured by surrounding consolidated lung parenchyma. This should be followed up in 6 months to one year depending on results of interim follow-up exams -CXR 06/21: Persistent but slightly decreased size of known right lung cavitary lesion. Persistent extensive interstitial and bilateral airspace opacities. -sp cx 06/05, 06/06 normal resp jordin; repeat sp cx 06/18 PsA (singh S) + Providencia stuarti (S Ceftriaxone, R Cipro) (likely superinfection/HCAP) Rsp status improved but on 06/[address] his condition worsen T-SPOT :Neg AFB x 3 : Neg MTB PCR x2 : neg cryptococcus Ag, Histoplams mycelial Ab , Blastomyces ab : neg ; histoplasma yeast ab (not able to be done due to anticomplementary activity) -Cocci, Asp ag p -Fungitell + 144 (?aspergillosis vs false positive) 06/21 Xray : improvement of cavity CT chest 06/15: Slightly smaller (6 cm diameter ) but mostly unchanged cavitary lesion in the right lung, previously thought to represent a cavitating inflammatory process. Lung abscess is certainly a possibility. Fairly extensive bilateral pulmonary parenchymal consolidation, slightly increased from previous exam of 06/05/2017. Likely a combination of pulmonary edema and pneumonia. Small right and trace left pleural effusion, new/increased from the previous study. CT 06/05: 7.8 x 5.3 x 6.6 cm dense opacity in the posterior inferior right upper lobe with a central cavitation. Chest x-ray : right mid lung infiltrate, possible cavitation Rule out tuberculosis, fungal infection, or necrotizing pneumonia. CRP 14 Influenza negative Low-grade fever, SP Status post leukocytosis. Transaminitis ,? 2/2 Hep C cirrhosis- no active Hep C as VL not detected -CT abd/p: Evidence of hepatic cirrhosis. Hepatosplenomegaly. evidence of generalized anasarca, with pleural fluid and generalized subcutaneous edema. Cholelithiasis, also previously reported. Possible diverticulosis. No evidence of diverticulitis US Abd : Cholelithiasis. There is gallbladder wall thickening, likely related to hemodynamic abnormalities Splenomegaly. Evidence of hepatic cirrhosis HIV : NEG Hep Panel B neg , C Ab : +ve , VL not detected leukopenia and TCP 2/2 splenomegaly Seizure disorder History of CVA History of pacemaker placement Hyperlipidemia Hypertension COPD/asthma End-stage renal disease, on hemodialysis Diabetes Anxiety Anemia Echo, ejection fraction 45% to 50%. PLAN: cont PO Voriconazole -Continue Flagyl (in addition with Levaquin will provide anaerobic coverage for possible aspiration/cavitary and now PsA PNA as no isolation of resistant organisms); abx d# 33/35-42 Continue empiric Ethambutol and Levaquin, Amikcain ( empiric TB AB Rx d# 23 ) 07/05 SP Micafungin abx d#20 , Rifampin 600mg qd #10 07/01 SP Ceftriaxone #10 06/28 SP Amikacin #15 06/25 SP PO Voriconazole #3 06/20 SP Liposomal Ampho #8 / SP IV Vancomycin #14, Meropenem #5 06/13 SP Zosyn d# 10 3/ SP Zithromax D# 6 f/u sputum culture (, fungal, and AFB x3). f/u Coccidioidal ,Galactomannan and Fungitell, Histoplasma ag urine -daily CMP Dc isolation Vj BAL ( DW PCP ) Subjective Allergies: Coded Allergies: IODINE AND IODIDE CONTAINING PRODUC (Verified Allergy, Mild, itching and pruritis, 06/25/17) Uncoded Allergies: CONTRAST/DYE (Allergy, Intermediate, PRURITIS AND ITCHING, 06/25/17) Subjective no fever Objective Vital Signs Last 24 Hour Vital Signs Date Time Temp Pulse Resp B/P (MAP) Pulse Ox O2 Delivery O2 Flow Rate FiO2 07/05/17 18:16 131/84 07/05/17 16:00 97.7 112 21 131/84 93 Nasal Cannula 2.5 97.7 07/05/17 16:00 Nasal Cannula 2.5 07/05/17 12:00 Nasal Cannula 2.5 07/05/17 12:00 98.1 125 21 112/78 98 Nasal Cannula 2.5 98.1 07/05/17 10:27 125/80 07/05/17 09:16 Nasal Cannula 3.0 32 07/05/17 09:15 95 Nasal Cannula 3.0 32 07/05/17 09:15 66 22 Nasal Cannula 3.0 32 07/05/17 08:00 97.9 132 21 125/80 94 Nasal Cannula 2.5 97.9 07/05/17 08:00 Nasal Cannula 2.5 07/05/17 08:00 112 07/05/17 07:53 130/88 07/05/17 07:53 66 130/88 07/05/17 06:27 97.7 07/05/17 05:57 97.7 07/05/17 04:00 97.7 66 20 130/88 98 97.7 07/05/17 01:58 98.1 07/05/17 00:00 98.1 106 17 118/77 97 98.1 07/04/17 20:40 97.7 07/04/17 20:39 109 130/83 07/04/17 20:05 97.7 109 19 130/83 97 97.7 Height (Feet): 5 Height (Inches): 7.00 Weight (Pounds): 236 HEENT: atraumatic Breasts: no masses Cardiovascular: no gallop/murmur Abdomen: no organomegaly Laboratory Tests Test 07/05/17 10:00 White Blood Count 5.9 K/UL (4.8-10.8) Red Blood Count 2.90 M/UL (4.70-6.10) L Hemoglobin 8.9 G/DL (14.2-18.0) L Hematocrit 29.7 % (42.0-52.0) L Mean Corpuscular Volume 103 FL (80-99) H Mean Corpuscular Hemoglobin 30.6 PG (27.0-31.0) Mean Corpuscular Hemoglobin Concent 29.9 G/DL (32.0-36.0) L Red Cell Distribution Width 21.1 % (11.6-14.8) H Platelet Count 68 K/UL (150-450) L Mean Platelet Volume 7.8 FL (6.5-10.1) Neutrophils (%) (Auto) % (45.0-75.0) Lymphocytes (%) (Auto) % (20.0-45.0) Monocytes (%) (Auto) % (1.0-10.0) Eosinophils (%) (Auto) % (0.0-3.0) Basophils (%) (Auto) % (0.0-2.0) Differential Total Cells Counted 100 Neutrophils % (Manual) 52 % (45-75) Lymphocytes % (Manual) 25 % (20-45) Monocytes % (Manual) 20 % (1-10) H Eosinophils % (Manual) 3 % (0-3) Basophils % (Manual) 0 % (0-2) Band Neutrophils 0 % (0-8) Nucleated Red Blood Cells 3 /100 WBC Platelet Estimate Decreased L Platelet Morphology Normal Polychromasia 1+ Hypochromasia 2+ Poikilocytosis 1+ Anisocytosis 3+ Macrocytosis 1+ Sodium Level 142 MMOL/L (136-145) Potassium Level 3.5 MMOL/L (3.5-5.1) Chloride Level 99 MMOL/L (98-107) Carbon Dioxide Level 38 MMOL/L (21-32) H Anion Gap 5 mmol/L (5-15) Blood Urea Nitrogen 31 mg/dL (7-18) H Creatinine 9.3 MG/DL (0.55-1.30) H Estimat Glomerular Filtration Rate 7.2 mL/min (>60) Glucose Level 119 MG/DL (74-106) H Calcium Level 8.4 MG/DL (8.5-10.1) L Total Bilirubin 1.7 MG/DL (0.2-1.0) H Direct Bilirubin 1.1 MG/DL (0.0-0.3) H Aspartate Amino Transf (AST/SGOT) 43 U/L (15-37) H Alanine Aminotransferase (ALT/SGPT) 23 U/L (12-78) Alkaline Phosphatase 116 U/L (46-116) Total Protein 6.4 G/DL (6.4-8.2) Albumin 2.3 G/DL (3.4-5.0) L Globulin 4.1 g/dL Albumin/Globulin Ratio 0.6 (1.0-2.7) L Current Medications Medications (Trade) Dose Ordered Sig/Jose Route PRN Reason Start Time Stop Time Status Last Admin Dose Admin Acetaminophen (Tylenol) 650 mg Q4H PRN RECTAL Mild Pain (Pain Scale 1-3) 06/16/17 19:00 07/09/17 18:59 Albuterol/ Ipratropium (Albuterol/ Ipratropium) 3 ml Q4H PRN HHN Shortness of Breath 07/05/17 08:30 07/10/17 08:29 Alprazolam (Xanax) 2 mg DAILYPRN PRN ORAL For Anxiety 07/02/17 08:45 07/09/17 08:44 07/05/17 07:53 Amikacin Protocol (Amikacin pharmacy to dose) 1 ea DAILY PRN MISC Per rx protocol 07/04/17 15:15 08/03/17 15:14 Amikacin Sulfate 1000 mg/Dextrose 114 ml @ 228 mls/hr FRI-FRI-FRI IV 07/04/17 21:00 07/11/17 20:59 Carisoprodol (Soma) 350 mg Q6H PRN ORAL MUSCLE SPASMS 06/16/17 19:00 07/14/17 18:59 07/05/17 15:25 Carvedilol (Coreg) 25 mg EVERY 12 HOURS ORAL 07/02/17 21:00 07/19/17 21:00 07/05/17 07:53 Chlorhexidine Gluconate (Mireille-Hex 2%) 1 applic DAILY@2000 TOPIC 07/03/17 20:00 08/02/17 19:59 07/04/17 20:37 Clonidine HCl (Catapres Tab) 0.1 mg Q4H PRN ORAL bp over 160 syst 07/02/17 11:30 07/19/17 11:29 07/04/17 12:49 Dextrose (Dextrose 50%) STAT PRN IV Hypoglycemia 06/16/17 19:00 07/14/17 18:59 Docusate Sodium (Colace) 100 mg THREE TIMES A DAY ORAL 07/02/17 13:00 07/18/17 13:00 07/05/17 18:16 Ethambutol HCl (Myambutol) 1,000 mg 3XW ORAL 06/18/17 09:00 07/18/17 23:59 07/04/17 18:38 Hydromorphone HCl (Dilaudid) 1 mg Q4H PRN IVP Moderate Pain (Pain Scale 4-6) 07/02/17 11:15 07/09/17 11:14 07/05/17 10:27 Hydromorphone HCl (Dilaudid) 2 mg Q4H PRN IVP Severe Pain (Pain Scale 7-10) 07/02/17 11:15 07/09/17 11:14 07/05/17 18:17 Levofloxacin (Levaquin) 750 mg EVERY OTHER DAY@1999 ORAL 06/17/17 20:00 07/07/17 19:59 07/03/17 20:23 Lisinopril (Prinivil) 20 mg BID ORAL 07/02/17 18:00 07/19/17 18:00 07/05/17 18:16 Metronidazole (Flagyl) 500 mg Q8HR ORAL 06/17/17 22:00 07/07/17 21:59 07/05/17 13:14 Nitroglycerin (Ntg) 0.4 mg Q5M PRN SL Prn Chest Pain 07/02/17 11:30 07/19/17 11:29 Nitroglycerin (Ntg) 1 patch Q24H TDERMAL 07/02/17 11:30 07/19/17 11:30 07/05/17 10:27 Ondansetron HCl (Zofran) 4 mg Q6H PRN IVP Nausea & Vomiting 06/16/17 18:30 07/14/17 18:29 07/05/17 15:25 Pantoprazole (Protonix) 40 mg ACBREAKFAST ORAL 06/17/17 06:30 07/15/17 06:29 07/05/17 05:13 Polyethylene Glycol (Miralax) 17 gm DAILYPRN PRN ORAL Constipation 06/16/17 18:30 07/14/17 18:29 Promethazine HCl/ Codeine (Phenergan with Codeine) 5 ml Q4H PRN ORAL For Cough 07/03/17 10:30 07/22/17 10:30 Sevelamer Carbonate (Renvela) 2,400 mg THREE TIMES A DAY ORAL 06/16/17 18:45 07/16/17 18:44 07/05/17 18:16 Temazepam (Restoril) 15 mg HSPRN PRN ORAL Insomnia 07/02/17 21:00 07/09/17 20:59 07/04/17 22:23 Voriconazole (Vfend) 200 mg EVERY 12 HOURS ORAL 07/04/17 21:00 07/11/17 20:59 07/05/17 07:54 Cristofer Antunez MD Jul 05, 2017 19:46
[2017-07-05 20:00] VITALS: BP 123/93
[2017-07-05] MEDS: Dyna-Hex 2% Top Sol 2oz TOPIC SCH (20:38)
[2017-07-06] VITALS (8 sets, daily range): BP systolic 106–130; BP diastolic 57–101
--- NOTE | 2017-07-06 00:49 | General Progress Note ---
Assessment/Plan Assessment/Plan #. Left leg dvt --> acute onset, will need to review final duplex results --> begin on apixaban daily x 3 months, low h/h will need to monitor closely --> okay to change to different anticoagulant if renal clearance an issue --> If h/h downtrends below 7.5, consider ivc filter placement #. Anemia secondary to chronic disease. --> Hemoglobin levels continue to improve. No blood transfusion required at this time. --> S/P abd CAT scan revealing evidence of hepatic cirrhosis. --> Continue to closely monitor and trend cbc daily. --> Anemia workup completed and reviewed. Iron 42, TIBC 180, Ferritin 593, B12 876. --> Ferritin is >500, hgb goal is >7 --> Anemia w/u has been reviewed --> ++Occult blood. Consider GI Services and Recs. # Hepatosplenomegaly. Ascites. There is also evidence of generalized anasarca, with pleural fluid and generalized subcutaneous edema --> Abd pain improved on pain management #. Anemia of kidney disease --> HD as needed per nephrology team --> Monitor closely. --> Does not require iron at this time #. Generalized body ache related to fluid overload. #. End-stage renal disease, on hemodialysis as needed --> Monitor. S/P HD. #. Cardiomegaly. S/P Chest Xray --> Persistent but slightly decreased size of known right lung cavitary lesion. --> Persistent extensive interstitial and bilateral airspace opacities. --> Edema improved. Subjective Date patient seen: Jul 05, 2017 Constitutional: Denies: no symptoms, chills, diaphoresis, fever, malaise, weakness, other HEENT: Denies: no symptoms, eye pain, blurred vision, tearing, double vision, ear pain, ear discharge, nose pain, nose congestion, throat pain, throat swelling, mouth pain, mouth swelling, other Cardiovascular: Denies: no symptoms, chest pain, edema, irregular heart rate, lightheadedness, palpitations, syncope, other Respiratory: Denies: no symptoms, cough, orthopnea, shortness of breath, SOB with excertion, SOB at rest, sputum, stridor, wheezing, other Gastrointestinal/Abdominal: Denies: no symptoms, abdomen distended, abdominal pain, black stools, tarry stools, blood in stool, constipated, diarrhea, difficulty swallowing, nausea, poor appetite, poor fluid intake, rectal bleeding , vomiting, other Genitourinary: Denies: no symptoms, burning, discharge, frequency, flank pain, hematuria, incontinence, pain, urgency, other Neurologic/Psychiatric: Denies: no symptoms, anxiety, depressed, emotional problems, headache, numbness, paresthesia, pre-existing deficit, seizure, tingling, tremors, weakness, other Hematologic/Lymphatic: Reports: anemia Allergies: Coded Allergies: IODINE AND IODIDE CONTAINING PRODUC (Verified Allergy, Mild, itching and pruritis, 06/25/17) Uncoded Allergies: CONTRAST/DYE (Allergy, Intermediate, PRURITIS AND ITCHING, 06/25/17) Subjective Tachycardic. No fever or chills. Objective Last 24 Hour Vital Signs Date Time Temp Pulse Resp B/P (MAP) Pulse Ox O2 Delivery O2 Flow Rate FiO2 07/06/17 00:00 98.0 115 20 110/82 97 Nasal Cannula 2.5 98.0 07/05/17 21:31 Nasal Cannula 2.0 28 07/05/17 21:30 98 Nasal Cannula 2.0 28 07/05/17 21:30 117 22 Nasal Cannula 2.0 28 07/05/17 20:39 117 123/93 07/05/17 20:00 97.9 117 22 123/93 98 97.9 07/05/17 20:00 Nasal Cannula 2.5 07/05/17 18:16 131/84 07/05/17 16:00 97.7 112 21 131/84 93 Nasal Cannula 2.5 97.7 07/05/17 16:00 Nasal Cannula 2.5 07/05/17 12:00 Nasal Cannula 2.5 07/05/17 12:00 98.1 125 21 112/78 98 Nasal Cannula 2.5 98.1 07/05/17 10:27 125/80 07/05/17 09:16 Nasal Cannula 3.0 32 07/05/17 09:15 95 Nasal Cannula 3.0 32 07/05/17 09:15 66 22 Nasal Cannula 3.0 32 07/05/17 08:00 97.9 132 21 125/80 94 Nasal Cannula 2.5 97.9 07/05/17 08:00 Nasal Cannula 2.5 07/05/17 08:00 112 07/05/17 07:53 130/88 07/05/17 07:53 66 130/88 07/05/17 06:27 97.7 07/05/17 05:57 97.7 07/05/17 04:00 97.7 66 20 130/88 98 97.7 07/05/17 01:58 98.1 Intake and Output 07/05/17 07/06/17 19:00 07:00 Intake Total 360 ml Balance 360 ml Intake Oral 360 ml # Voids 4 # Bowel Movements 2 Laboratory Tests 07/05/17 10:00: White Blood Count 5.9, Red Blood Count 2.90L, Hemoglobin 8.9L, Hematocrit 29.7L , Mean Corpuscular Volume 103H, Mean Corpuscular Hemoglobin 30.6, Mean Corpuscular Hemoglobin Concent 29.9L, Red Cell Distribution Width 21.1H, Platelet Count 68L, Mean Platelet Volume 7.8, Neutrophils (%) (Auto) , Lymphocytes (%) (Auto) , Monocytes (%) (Auto) , Eosinophils (%) (Auto) , Basophils (%) (Auto) , Differential Total Cells Counted 100, Neutrophils % ( Manual) 52, Lymphocytes % (Manual) 25, Monocytes % (Manual) 20H, Eosinophils % ( Manual) 3, Basophils % (Manual) 0, Band Neutrophils 0, Nucleated Red Blood Cells 3, Platelet Estimate DecreasedL, Platelet Morphology Normal, Polychromasia 1+, Hypochromasia 2+, Poikilocytosis 1+, Anisocytosis 3+, Macrocytosis 1+, Sodium Level 142, Potassium Level 3.5, Chloride Level 99, Carbon Dioxide Level 38H, Anion Gap 5, Blood Urea Nitrogen 31H, Creatinine 9.3H , Estimat Glomerular Filtration Rate 7.2, Glucose Level 119H, Calcium Level 8.4L , Total Bilirubin 1.7H, Direct Bilirubin 1.1H, Aspartate Amino Transf (AST/SGOT ) 43H, Alanine Aminotransferase (ALT/SGPT) 23, Alkaline Phosphatase 116, Total Protein 6.4, Albumin 2.3L, Globulin 4.1, Albumin/Globulin Ratio 0.6L Height (Feet): 5 Height (Inches): 7.00 Weight (Pounds): 236 General Appearance: agitated Respiratory/Chest: decreased breath sounds Abdomen: soft Irving Parker MD Jul 06, 2017 00:49
[2017-07-06] MEDS ORDERED: Nitroglycerin Subl 0.4mg tab SL PRN (04:00)
[2017-07-06] MEDS ORDERED: Albuterol/Ipratropium 3ml neb HHN PRN (04:30)
[2017-07-06] MEDS: ALPRAZolam 0.5mg tab ORAL PRN ×2 (04:35→17:40)
[2017-07-06] MEDS ORDERED: Metoprolol 5mg/5ml Inj IVP ONE (06:00)
[2017-07-06] MEDS ORDERED: Promethazine/Codeine 5ml UD ORAL PRN (06:30)
[2017-07-06] MEDS: metroNIDAZOLE 500mg tab ORAL SCH ×3 (06:31→21:28)
[2017-07-06] MEDS ORDERED: Acetaminophen 650 MG SUPP RECTAL PRN (07:00)
[2017-07-06] MEDS: Docusate 100mg cap ORAL SCH ×3 (08:11→17:41)
[2017-07-06] MEDS: Lisinopril 20mg tab ORAL SCH ×3 (09:00→17:41)
[2017-07-06] MEDS ORDERED: Carvedilol 25mg Tab ORAL SCH (09:00)
[2017-07-06] MEDS ORDERED: Amikacin Rx to dose MISC PRN (09:00)
--- NOTE | 2017-07-06 09:13 | Pulmonology Progress Note ---
Assessment/Plan Assessment/Plan ASSESSMENT R upper lobe cavitary mass Necrotizing PNA with cavitating lesion RUL r/o TB Acute hypoxemic RF requiring BiPAP -resolved Pleuritic chest pain likely due to necrotizing PNA . Elevated troponin Systolic CHF ( recent negative reversible perfusion defect.) cardiomyopathy pulmonary edema Asthma. End-stage renal disease, on hemodialysis. Hypertensive urgency . Anemia of chronic disease. History of intracardiac defibrillator placement. Prior history of cerebrovascular accident. ESRD on HD A flutter with RVR ( ? new onset) thrombocytopenia transaminitis hepatitis C liver cirrhosis cholelithiasis PLAN OF CARE transferred [facility] currently in A flutter BP on low side per cardio management a/emetic stat pulse ox stable off resp isolation CXR 07/04- Persistent but slightly decreased size of known right lung cavitary lesion. CT chest 06/26 -Further reduction in size of previously demonstrated thick walled right upper lobe cavitary mass. Currently measures 6 cm AP by 5.2 cm transverse by 3.9 cm craniocaudad, previously approximately 7.8 x 4.9 x 5.2 cm. This was previously thought to most likely represent a cavitary inflammatory mass, and the interim reduction in size certainly supports that. Much less likely a cavitary neoplasm CT chest 06/15- Slightly smaller but mostly unchanged cavitary lesion in the right lung, previously thought to represent a cavitating inflammatory process. Lung abscess is certainly a possibility initial CT chest with evidence of necrotizing PNA with cavitary lesion - 7.8 x 5.3 x 6.6 cm dense opacity in the posterior inferior right upper lobe with a central cavitation. T-SPOT-Neg ; sputum AFB x 3- Neg MTB by PCR x2 -neg cryptococcus Ag, Histo Ab , Blasto ab-all neg ; serology for Asp pending sputum cx + Providencia/Pseudomonas Ethambutol , Levaquin , and Amikacin, off Rifaximin, monitor LFT-, cont Flagyl per ID for anaerobic coverage fup with fungal serology and AFB culture s/p Micafungin to cover for possible Aspergilloses , started on voriconazole PICC unable to be placed O2 titrate, pulm toilet BiPAP at HS and prn HIV negative blood cx negative, influenza screen negative a/tussive prn cardio follows BP management with [facility] and [facility] medical management for SHF nephro follows HD as per nephro monitor renal parameters, lytes, avoid nephrotoxic heme follows transfuse prn with goal to keep Hgb above 7 anemia w/up c/w anemia of chronic disease and multifactorial as per GI stool OB+ x1 monitor PLT count- better off Heparin SCD Venous Duplex BLE- negative GI follows hep panel + hep C, no viral load , thus no active infection cirrhosis likely 2 to hep C abd US + cholelithiasis, HSM, surgeon consulted CT A/P with hepatic cirrhosis, HSM, anasarca and cholelithiasis, no evidence of acute cholecystis, no surgical intervention necessary per GI defer EGD/colon for now add sleeping pill cont resp isolation disposition after [facility] Department clearance case discussed and evaluated by supervising physician Subjective Allergies: Coded Allergies: IODINE AND IODIDE CONTAINING PRODUC (Verified Allergy, Mild, itching and pruritis, 06/25/17) Uncoded Allergies: CONTRAST/DYE (Allergy, Intermediate, PRURITIS AND ITCHING, 06/25/17) Subjective transferred to tele 2 to tachycardia no SOB no CP n/v/ on O2 via NC afebrile, no leukocytosis HD done 07/04 , next in am Objective Last 24 Hour Vital Signs Date Time Temp Pulse Resp B/P (MAP) Pulse Ox O2 Delivery O2 Flow Rate FiO2 07/06/17 08:43 97.7 07/06/17 08:35 Nasal Cannula 2.0 28 07/06/17 08:35 98 Nasal Cannula 2.0 28 07/06/17 08:34 122 22 Nasal Cannula 2.0 28 07/06/17 08:13 97.7 07/06/17 08:12 67 106/57 07/06/17 07:39 97.7 67 20 106/57 99 97.7 07/06/17 06:27 134 93/60 07/06/17 04:24 138 07/06/17 04:00 98.1 135 22 121/84 100 98.1 07/06/17 03:20 98.4 123 22 130/90 98 98.4 07/06/17 00:55 112 07/06/17 00:00 98.0 126 20 110/82 97 Nasal Cannula 2.5 98.0 07/05/17 21:31 Nasal Cannula 2.0 28 07/05/17 21:30 98 Nasal Cannula 2.0 28 07/05/17 21:30 117 22 Nasal Cannula 2.0 28 07/05/17 20:39 117 123/93 07/05/17 20:00 97.9 117 22 123/93 98 97.9 07/05/17 20:00 Nasal Cannula 2.5 07/05/17 18:16 131/84 07/05/17 16:00 97.7 112 21 131/84 93 Nasal Cannula 2.5 97.7 07/05/17 16:00 Nasal Cannula 2.5 07/05/17 12:00 Nasal Cannula 2.5 07/05/17 12:00 98.1 125 21 112/78 98 Nasal Cannula 2.5 98.1 07/05/17 10:27 125/80 07/05/17 09:16 Nasal Cannula 3.0 32 07/05/17 09:15 95 Nasal Cannula 3.0 32 07/05/17 09:15 66 22 Nasal Cannula 3.0 32 Intake and Output 07/05/17 07/06/17 19:00 07:00 Intake Total 360 ml 240 ml Output Total 0 ml Balance 360 ml 240 ml Intake Oral 360 ml 240 ml Output Urine Total 0 ml Stool Total 0 ml # Voids 4 # Bowel Movements 2 Objective General Appearance: no acute distress, obese, awake, alert, oriented x4 AA male , HEENT: normocephalic, atraumatic, anicteric Respiratory/Chest: decreased breath sounds, ICD LT chest Cardiovascular: A flutter with tachycardia on tele, LUE AV shunt + bruit/ thrill, L neck IJ CL intact Abdomen: normal bowel sounds, soft, non tender, obese Extremities: +1 edema BLE Neurologic/Psychiatric: alert, responsive Musculoskeletal: normal muscle bulk Laboratory Tests 07/05/17 10:00: White Blood Count 5.9, Red Blood Count 2.90L, Hemoglobin 8.9L, Hematocrit 29.7L , Mean Corpuscular Volume 103H, Mean Corpuscular Hemoglobin 30.6, Mean Corpuscular Hemoglobin Concent 29.9L, Red Cell Distribution Width 21.1H, Platelet Count 68L, Mean Platelet Volume 7.8, Neutrophils (%) (Auto) , Lymphocytes (%) (Auto) , Monocytes (%) (Auto) , Eosinophils (%) (Auto) , Basophils (%) (Auto) , Differential Total Cells Counted 100, Neutrophils % ( Manual) 52, Lymphocytes % (Manual) 25, Monocytes % (Manual) 20H, Eosinophils % ( Manual) 3, Basophils % (Manual) 0, Band Neutrophils 0, Nucleated Red Blood Cells 3, Platelet Estimate DecreasedL, Platelet Morphology Normal, Polychromasia 1+, Hypochromasia 2+, Poikilocytosis 1+, Anisocytosis 3+, Macrocytosis 1+, Sodium Level 142, Potassium Level 3.5, Chloride Level 99, Carbon Dioxide Level 38H, Anion Gap 5, Blood Urea Nitrogen 31H, Creatinine 9.3H , Estimat Glomerular Filtration Rate 7.2, Glucose Level 119H, Calcium Level 8.4L , Total Bilirubin 1.7H, Direct Bilirubin 1.1H, Aspartate Amino Transf (AST/SGOT ) 43H, Alanine Aminotransferase (ALT/SGPT) 23, Alkaline Phosphatase 116, Total Protein 6.4, Albumin 2.3L, Globulin 4.1, Albumin/Globulin Ratio 0.6L Current Medications Medications (Trade) Dose Ordered Sig/Jose Route PRN Reason Start Time Stop Time Status Last Admin Dose Admin Acetaminophen (Tylenol) 650 mg Q4H PRN RECTAL Mild Pain (Pain Scale 1-3) 07/06/17 07:00 07/09/17 18:59 Albuterol/ Ipratropium (Albuterol/ Ipratropium) 3 ml Q4H PRN HHN Shortness of Breath 07/06/17 04:30 07/10/17 08:29 Alprazolam (Xanax) 2 mg DAILYPRN PRN ORAL For Anxiety 07/06/17 08:45 07/09/17 08:44 07/06/17 04:35 Amikacin Protocol (Amikacin pharmacy to dose) 1 ea DAILY PRN MISC Per rx protocol 07/06/17 09:00 08/03/17 15:14 Amikacin Sulfate 1000 mg/Dextrose 114 ml @ 228 mls/hr MON-WED-FRI IV 07/07/17 21:00 07/11/17 20:59 Carisoprodol (Soma) 350 mg Q6H PRN ORAL MUSCLE SPASMS 07/06/17 07:00 07/14/17 18:59 Carvedilol (Coreg) 25 mg EVERY 12 HOURS ORAL 07/06/17 09:00 07/19/17 21:00 07/06/17 08:12 Chlorhexidine Gluconate (Mireille-Hex 2%) 1 applic DAILY@1999 TOPIC 07/06/17 20:00 08/02/17 19:59 Clonidine HCl (Catapres Tab) 0.1 mg Q4H PRN ORAL bp over 160 syst 07/06/17 07:30 07/19/17 11:29 Dextrose (Dextrose 50%) STAT PRN IV Hypoglycemia 07/06/17 19:00 07/14/17 18:59 Docusate Sodium (Colace) 100 mg THREE TIMES A DAY ORAL 07/06/17 09:00 07/18/17 13:00 07/06/17 08:11 Ethambutol HCl (Myambutol) 1,000 mg 3XW ORAL 07/07/17 09:00 07/18/17 23:59 Hydromorphone HCl (Dilaudid) 1 mg Q4H PRN IVP Moderate Pain (Pain Scale 4-6) 07/06/17 07:15 07/09/17 11:14 Hydromorphone HCl (Dilaudid) 2 mg Q4H PRN IVP Severe Pain (Pain Scale 7-10) 07/06/17 07:15 07/09/17 11:14 07/06/17 08:13 Levofloxacin (Levaquin) 750 mg EVERY OTHER DAY@1999 ORAL 07/07/17 20:00 07/14/17 19:59 Lisinopril (Prinivil) 20 mg BID ORAL 07/06/17 09:00 07/19/17 18:00 Metronidazole (Flagyl) 500 mg Q8HR ORAL 07/06/17 06:30 07/07/17 06:29 07/06/17 06:31 Nitroglycerin (Ntg) 0.4 mg Q5M PRN SL Prn Chest Pain 07/06/17 04:00 07/19/17 11:29 Nitroglycerin (Ntg) 1 patch Q24H TDERMAL 07/06/17 11:30 07/19/17 11:30 Ondansetron HCl (Zofran) 4 mg Q6H PRN IVP Nausea & Vomiting 07/06/17 06:30 07/14/17 18:29 07/06/17 08:18 Pantoprazole (Protonix) 40 mg ACBREAKFAST ORAL 07/06/17 06:30 07/15/17 06:29 07/06/17 06:31 Polyethylene Glycol (Miralax) 17 gm DAILYPRN PRN ORAL Constipation 07/06/17 18:30 07/14/17 18:29 Promethazine HCl/ Codeine (Phenergan with Codeine) 5 ml Q4H PRN ORAL For Cough 07/06/17 06:30 07/22/17 10:30 Sevelamer Carbonate (Renvela) 2,400 mg THREE TIMES A DAY ORAL 07/06/17 09:00 07/16/17 18:44 07/06/17 08:12 Temazepam (Restoril) 15 mg HSPRN PRN ORAL Insomnia 07/06/17 21:00 07/09/17 20:59 Voriconazole (Vfend) 200 mg EVERY 12 HOURS ORAL 07/06/17 09:00 07/11/17 20:59 07/06/17 08:12 Mariela Madrigal NP ([facility]) Jul 06, 2017 09:13
[2017-07-06 09:27] LABS: HEMATOCRIT 29.2 % (42.0-52.0); HEMOGLOBIN 9.2 G/DL (14.2-18.0); MEAN CORPUSCULAR VOLUME 101 FL (80-99); PLATELET COUNT 62 K/UL (150-450); RED BLOOD COUNT 2.91 M/UL (4.70-6.10); RED CELL DISTRIBUTION WIDTH 20.7 % (11.6-14.8); WHITE BLOOD COUNT 6.6 K/UL (4.8-10.8)
--- NOTE | 2017-07-06 10:01 | Internal Med Progress Note ---
Subjective Date of Service: Jul 06, 2017 Physician Name Zoey Pires Attending Physician Chaitanya Weinstein MD Current Medications Medications (Trade) Dose Ordered Sig/Jose Route PRN Reason Start Time Stop Time Status Last Admin Dose Admin Acetaminophen (Tylenol) 650 mg Q4H PRN RECTAL Mild Pain (Pain Scale 1-3) 07/06/17 07:00 07/09/17 18:59 Albuterol/ Ipratropium (Albuterol/ Ipratropium) 3 ml Q4H PRN HHN Shortness of Breath 07/06/17 04:30 07/10/17 08:29 Alprazolam (Xanax) 2 mg DAILYPRN PRN ORAL For Anxiety 07/06/17 08:45 07/09/17 08:44 07/06/17 04:35 Amikacin Protocol (Amikacin pharmacy to dose) 1 ea DAILY PRN MISC Per rx protocol 07/06/17 09:00 08/03/17 15:14 Amikacin Sulfate 1000 mg/Dextrose 114 ml @ 228 mls/hr FRI-FRI-FRI IV 07/07/17 21:00 07/11/17 20:59 Carisoprodol (Soma) 350 mg Q6H PRN ORAL MUSCLE SPASMS 07/06/17 07:00 07/14/17 18:59 Carvedilol (Coreg) 25 mg EVERY 12 HOURS ORAL 07/06/17 09:00 07/19/17 21:00 07/06/17 08:12 Chlorhexidine Gluconate (Mireille-Hex 2%) 1 applic DAILY@2000 TOPIC 07/06/17 20:00 08/02/17 19:59 Clonidine HCl (Catapres Tab) 0.1 mg Q4H PRN ORAL bp over 160 syst 07/06/17 07:30 07/19/17 11:29 Dextrose (Dextrose 50%) STAT PRN IV Hypoglycemia 07/06/17 19:00 07/14/17 18:59 Docusate Sodium (Colace) 100 mg THREE TIMES A DAY ORAL 07/06/17 09:00 07/18/17 13:00 07/06/17 08:11 Ethambutol HCl (Myambutol) 1,000 mg 3XW ORAL 07/07/17 09:00 07/18/17 23:59 Hydromorphone HCl (Dilaudid) 1 mg Q4H PRN IVP Moderate Pain (Pain Scale 4-6) 07/06/17 07:15 07/09/17 11:14 Hydromorphone HCl (Dilaudid) 2 mg Q4H PRN IVP Severe Pain (Pain Scale 7-10) 07/06/17 07:15 07/09/17 11:14 07/06/17 08:13 Levofloxacin (Levaquin) 750 mg EVERY OTHER DAY@2000 ORAL 07/07/17 20:00 07/14/17 19:59 Lisinopril (Prinivil) 20 mg BID ORAL 07/06/17 09:00 07/19/17 18:00 Metronidazole (Flagyl) 500 mg Q8HR ORAL 07/06/17 06:30 07/07/17 06:29 07/06/17 06:31 Nitroglycerin (Ntg) 0.4 mg Q5M PRN SL Prn Chest Pain 07/06/17 04:00 07/19/17 11:29 Nitroglycerin (Ntg) 1 patch Q24H TDERMAL 07/06/17 11:30 07/19/17 11:30 Ondansetron HCl (Zofran) 4 mg Q6H PRN IVP Nausea & Vomiting 07/06/17 06:30 07/14/17 18:29 07/06/17 08:18 Pantoprazole (Protonix) 40 mg ACBREAKFAST ORAL 07/06/17 06:30 07/15/17 06:29 07/06/17 06:31 Polyethylene Glycol (Miralax) 17 gm DAILYPRN PRN ORAL Constipation 07/06/17 18:30 07/14/17 18:29 Promethazine HCl/ Codeine (Phenergan with Codeine) 5 ml Q4H PRN ORAL For Cough 07/06/17 06:30 07/22/17 10:30 Sevelamer Carbonate (Renvela) 2,400 mg THREE TIMES A DAY ORAL 07/06/17 09:00 07/16/17 18:44 07/06/17 08:12 Temazepam (Restoril) 15 mg HSPRN PRN ORAL Insomnia 07/06/17 21:00 07/09/17 20:59 Voriconazole (Vfend) 200 mg EVERY 12 HOURS ORAL 4/1/18 09:00 07/11/17 20:59 07/06/17 08:12 Allergies: Coded Allergies: IODINE AND IODIDE CONTAINING PRODUC (Verified Allergy, Mild, itching and pruritis, 06/25/17) Uncoded Allergies: CONTRAST/DYE (Allergy, Intermediate, PRURITIS AND ITCHING, 06/25/17) Subjective 57 YO M admitted with chest pain and shortness of breath. Now pneumonia and candelaria heart failure. Back on nasal canula. Cover for Int Misbah-Dr Weinstein. Transfered to Telemetry for HR>140. Now atria flutter with rapid ventricular rate. Objective Last Vital Signs Date Time Temp Pulse Resp B/P (MAP) Pulse Ox O2 Delivery O2 Flow Rate FiO2 07/06/17 08:43 97.7 07/06/17 08:35 Nasal Cannula 2.0 28 07/06/17 08:35 98 07/06/17 08:34 122 22 07/06/17 08:12 106/57 Laboratory Tests Test 07/05/17 10:00 07/06/17 08:25 White Blood Count 5.9 K/UL (4.8-10.8) 6.6 K/UL (4.8-10.8) Red Blood Count 2.90 M/UL (4.70-6.10) L 2.91 M/UL (4.70-6.10) L Hemoglobin 8.9 G/DL (14.2-18.0) L 9.2 G/DL (14.2-18.0) L Hematocrit 29.7 % (42.0-52.0) L 29.2 % (42.0-52.0) L Mean Corpuscular Volume 103 FL (80-99) H 101 FL (80-99) H Mean Corpuscular Hemoglobin 30.6 PG (27.0-31.0) 31.8 PG (27.0-31.0) H Mean Corpuscular Hemoglobin Concent 29.9 G/DL (32.0-36.0) L 31.6 G/DL (32.0-36.0) L Red Cell Distribution Width 21.1 % (11.6-14.8) H 20.7 % (11.6-14.8) H Platelet Count 68 K/UL (150-450) L 62 K/UL (150-450) L Mean Platelet Volume 7.8 FL (6.5-10.1) 7.1 FL (6.5-10.1) Neutrophils (%) (Auto) % (45.0-75.0) % (45.0-75.0) Lymphocytes (%) (Auto) % (20.0-45.0) % (20.0-45.0) Monocytes (%) (Auto) % (1.0-10.0) % (1.0-10.0) Eosinophils (%) (Auto) % (0.0-3.0) % (0.0-3.0) Basophils (%) (Auto) % (0.0-2.0) % (0.0-2.0) Differential Total Cells Counted 100 Neutrophils % (Manual) 52 % (45-75) Pending Lymphocytes % (Manual) 25 % (20-45) Pending Monocytes % (Manual) 20 % (1-10) H Eosinophils % (Manual) 3 % (0-3) Basophils % (Manual) 0 % (0-2) Band Neutrophils 0 % (0-8) Nucleated Red Blood Cells 3 /100 WBC Platelet Estimate Decreased L Pending Platelet Morphology Normal Pending Polychromasia 1+ Hypochromasia 2+ Poikilocytosis 1+ Anisocytosis 3+ Macrocytosis 1+ Sodium Level 142 MMOL/L (136-145) Pending Potassium Level 3.5 MMOL/L (3.5-5.1) Pending Chloride Level 99 MMOL/L (98-107) Pending Carbon Dioxide Level 38 MMOL/L (21-32) H Pending Anion Gap 5 mmol/L (5-15) Blood Urea Nitrogen 31 mg/dL (7-18) H Pending Creatinine 9.3 MG/DL (0.55-1.30) H Pending Estimat Glomerular Filtration Rate 7.2 mL/min (>60) Pending Glucose Level 119 MG/DL (74-106) H Pending Calcium Level 8.4 MG/DL (8.5-10.1) L Pending Total Bilirubin 1.7 MG/DL (0.2-1.0) H Pending Direct Bilirubin 1.1 MG/DL (0.0-0.3) H Aspartate Amino Transf (AST/SGOT) 43 U/L (15-37) H Pending Alanine Aminotransferase (ALT/SGPT) 23 U/L (12-78) Pending Alkaline Phosphatase 116 U/L (46-116) Pending Total Protein 6.4 G/DL (6.4-8.2) Pending Albumin 2.3 G/DL (3.4-5.0) L Pending Globulin 4.1 g/dL Pending Albumin/Globulin Ratio 0.6 (1.0-2.7) L Troponin I Pending Intake and Output 07/05/17 07/06/17 19:00 07:00 Intake Total 360 ml 240 ml Output Total 0 ml Balance 360 ml 240 ml Intake Oral 360 ml 240 ml Output Urine Total 0 ml Stool Total 0 ml # Voids 4 # Bowel Movements 2 Objective General Appearance: WD/WN, alert, moderate distress EENT: PERRL/EOMI, normal ENT inspection Neck: non-tender, normal alignment, supple, normal inspection Cardiovascular: normal peripheral pulses, normal rate, regular rhythm, no gallop/murmur, no JVD Respiratory/Chest: Nasal canula; respiratory distress, crackles/rales, rhonchi - bilaterally, expiratory wheezing Abdomen: normal bowel sounds, non tender, soft, no organomegaly, no mass Extremities: normal range of motion Neurologic: auto suspension 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 (2) Respiratory failure Assessment & Plan: CHF and Pneumonia. Currently on nasal canula. See pulmonay note. (3) Pleuritic chest pain (4) Hemoptysis Assessment & Plan: Due to pneumonia (5) Pneumonia Assessment & Plan: Providencia and pseudamonas. RUL and cavitary. Concerning for TB. Await AFB cultures-see ID consult. Continue vanco and ethambutol per ID. Continue rocephin, micafungin, flagyl, amikacin, levaquin, and rifampin (6) Shortness of breath (7) ESRD (end stage renal disease) on dialysis Assessment & Plan: See nephrology note. Last Hemodialysis 07/04/17 per nephrology (8) Hyperkalemia Assessment & Plan: Due to renal failure. Hemodialysis 06/12/17 per nephrology (9) COPD (chronic obstructive pulmonary disease) (10) HTN (hypertension) Assessment & Plan: Continue coreg and lisinopril. (11) CHF (congestive heart failure) (12) Elevated troponin Assessment & Plan: ?due to renal failure? See cardiology note. (13) Intractable abdominal pain Assessment & Plan: See surgery note. Await CT abdomen (14) Conjunctivitis Assessment & Plan: start tobramycin Status: deteriorating Assessment/Plan Discharge planning - coordination with [facility] Public [facility] pending ZOEY PIRES Jul 06, 2017 10:01
[2017-07-06 10:02] LABS: ALANINE AMINOTRANSFERASE 24 U/L (12-78); ALBUMIN 2.5 G/DL (3.4-5.0); ALBUMIN/GLOBULIN RATIO 0.6 (1.0-2.7); ALKALINE PHOSPHATASE 122 U/L (46-116); ANION GAP 8 mmol/L (5-15); ASPARTATE AMINO TRANSFERASE 41 U/L (15-37); BILIRUBIN,TOTAL 1.6 MG/DL (0.2-1.0); BLOOD UREA NITROGEN 42 mg/dL (7-18); CALCIUM 8.5 MG/DL (8.5-10.1); CARBON DIOXIDE 35 MMOL/L (21-32); CHLORIDE 97 MMOL/L (98-107); CREATININE 10.5 MG/DL (0.55-1.30); POTASSIUM 4.4 MMOL/L (3.5-5.1); SODIUM 140 MMOL/L (136-145)
[2017-07-06 10:03] LABS: BILIRUBIN,DIRECT 0.8 MG/DL (0.0-0.3)
[2017-07-06] MEDS: Nitroglycerin Patch 0.4mg TDERMAL SCH (11:30)
--- NOTE | 2017-07-06 13:13 | Nephrology Progress Note ---
Assessment/Plan Problem List: (1) ESRD (end stage renal disease) on dialysis (2) Shortness of breath (3) Anemia Assessment worsenning Anemia ESRD , missed HD , admitted with high K and pulmonary edema Acute respiratory distress due to volume overload elevated troponin r/o ACS h/o COPD ? exacerbation HTN urgency Cardiomyopathy L AICD anemia of chronic kidney disease Hx of CVA Plan Plan: Low H&H - consider transfusion HD next 4/2 Transfused Phos binders BP meds adjustment Optimize cardiac status per orders Subjective ROS Limited/Unobtainable: No Objective Objective Last 24 Hour Vital Signs Date Time Temp Pulse Resp B/P (MAP) Pulse Ox O2 Delivery O2 Flow Rate FiO2 07/06/17 13:06 97.7 07/06/17 12:51 97.7 07/06/17 12:21 97.7 07/06/17 12:00 98.3 65 20 123/101 98 98.3 07/06/17 12:00 141 07/06/17 10:41 140/80 07/06/17 08:35 Nasal Cannula 2.0 28 07/06/17 08:35 98 Nasal Cannula 2.0 28 07/06/17 08:34 122 22 Nasal Cannula 2.0 28 07/06/17 08:13 97.7 07/06/17 08:12 67 106/57 07/06/17 08:00 134 07/06/17 07:39 97.7 67 20 106/57 99 97.7 07/06/17 06:27 134 93/60 07/06/17 04:24 138 07/06/17 04:00 98.1 135 22 121/84 100 98.1 07/06/17 03:20 98.4 123 22 130/90 98 98.4 07/06/17 00:55 112 07/06/17 00:00 98.0 126 20 110/82 97 Nasal Cannula 2.5 98.0 07/05/17 21:31 Nasal Cannula 2.0 28 07/05/17 21:30 98 Nasal Cannula 2.0 28 07/05/17 21:30 117 22 Nasal Cannula 2.0 28 07/05/17 20:39 117 123/93 07/05/17 20:00 97.9 117 22 123/93 98 97.9 07/05/17 20:00 Nasal Cannula 2.5 07/05/17 18:16 131/84 07/05/17 16:00 97.7 112 21 131/84 93 Nasal Cannula 2.5 97.7 07/05/17 16:00 Nasal Cannula 2.5 Intake and Output 07/05/17 07/06/17 19:00 07:00 Intake Total 360 ml 240 ml Output Total 0 ml Balance 360 ml 240 ml Intake Oral 360 ml 240 ml Output Urine Total 0 ml Stool Total 0 ml # Voids 4 # Bowel Movements 2 Laboratory Tests 07/06/17 08:25: White Blood Count 6.6, Red Blood Count 2.91L, Hemoglobin 9.2L, Hematocrit 29.2L , Mean Corpuscular Volume 101H, Mean Corpuscular Hemoglobin 31.8H, Mean Corpuscular Hemoglobin Concent 31.6L, Red Cell Distribution Width 20.7H, Platelet Count 62L, Mean Platelet Volume 7.1, Neutrophils (%) (Auto) , Lymphocytes (%) (Auto) , Monocytes (%) (Auto) , Eosinophils (%) (Auto) , Basophils (%) (Auto) , Differential Total Cells Counted 100, Neutrophils % ( Manual) 50, Lymphocytes % (Manual) 20, Monocytes % (Manual) 22H, Eosinophils % ( Manual) 8H, Basophils % (Manual) 0, Band Neutrophils 0, Platelet Estimate DecreasedL, Platelet Morphology Normal, Hypochromasia 1+, Anisocytosis 2+, Macrocytosis 1+, Sodium Level 140, Potassium Level 4.4, Chloride Level 97L, Carbon Dioxide Level 35H, Anion Gap 8, Blood Urea Nitrogen 42H, Creatinine 10.5H , Estimat Glomerular Filtration Rate 6.2, Glucose Level 92, Calcium Level 8.5, Total Bilirubin 1.6H, Direct Bilirubin 0.8H, Aspartate Amino Transf (AST/SGOT) 41H, Alanine Aminotransferase (ALT/SGPT) 24, Alkaline Phosphatase 122H, Troponin I 0.064H, Total Protein 6.6, Albumin 2.5L, Globulin 4.1, Albumin/ Globulin Ratio 0.6L Height (Feet): 5 Height (Inches): 7.00 Weight (Pounds): 235 General Appearance: no apparent distress Objective no change LIAM MONTELONGO Jul 06, 2017 13:13
[2017-07-06] MEDS ORDERED: Digoxin 0.5mg/2ml Inj IVP ONE (14:15)
--- NOTE | 2017-07-06 14:16 | Cardiology Progress Note ---
Assessment/Plan Problem List: (1) CHF (congestive heart failure) (2) COPD (chronic obstructive pulmonary disease) (3) HTN (hypertension) (4) Elevated troponin (5) Pneumonia (6) Respiratory failure (7) Atrial flutter with rapid ventricular response Status: not improved, deteriorating Status Narrative Mr. Leslie was transferred to telemetry w/ AFL w/ RVR > EKG shows AFL w/ v rate 136 bpm and nonspecific T changes. Mild troponin elevation noted - may be due to RF He has nonischemic cm, w/ EF 40s and endstage renal disease, on hemodialysis. Assessment/Plan Will change coreg to metoprolol for rate control in AFL Anticoagulation if no contraindication Will arrange ICD interrogation to determine duration of AFL Continue lisinopril for afterload redn w/ CHF. HD for fluid removal. Dr Ely will continue to follow. Subjective ROS Limited/Unobtainable: No Subjective Cardiology for Dr. Ely Events noted. Mr. Leslie was transferred to telemetry w/ AFL w/ RVR this am. He c/o constant CP and dyspnea. Also c/o pain at R IJ catheter site Objective Last 24 Hour Vital Signs Date Time Temp Pulse Resp B/P (MAP) Pulse Ox O2 Delivery O2 Flow Rate FiO2 07/06/17 13:06 97.7 07/06/17 12:51 97.7 07/06/17 12:21 97.7 07/06/17 12:00 98.3 65 20 123/101 98 98.3 07/06/17 12:00 141 07/06/17 10:41 140/80 07/06/17 08:35 Nasal Cannula 2.0 28 07/06/17 08:35 98 Nasal Cannula 2.0 28 07/06/17 08:34 122 22 Nasal Cannula 2.0 28 07/06/17 08:13 97.7 07/06/17 08:12 67 106/57 07/06/17 08:00 134 07/06/17 07:39 97.7 67 20 106/57 99 97.7 07/06/17 06:27 134 93/60 07/06/17 04:24 138 07/06/17 04:00 98.1 135 22 121/84 100 98.1 07/06/17 03:20 98.4 123 22 130/90 98 98.4 07/06/17 00:55 112 07/06/17 00:00 98.0 126 20 110/82 97 Nasal Cannula 2.5 98.0 07/05/17 21:31 Nasal Cannula 2.0 28 07/05/17 21:30 98 Nasal Cannula 2.0 28 07/05/17 21:30 117 22 Nasal Cannula 2.0 28 07/05/17 20:39 117 123/93 07/05/17 20:00 97.9 117 22 123/93 98 97.9 07/05/17 20:00 Nasal Cannula 2.5 07/05/17 18:16 131/84 07/05/17 16:00 97.7 112 21 131/84 93 Nasal Cannula 2.5 97.7 07/05/17 16:00 Nasal Cannula 2.5 General Appearance: WD/WN, alert, mild distress, obese, other - nc o2 EENT: PERRL/EOMI Neck: supple, no JVD Cardiovascular: irregularly irregular, other - tachycardic s1s2 Respiratory/Chest: expiratory wheezing, other - tachypneic, bilat expir wheezes Abdomen: normal bowel sounds, non tender, other - mild distension. + BS Extremities: moderate edema - 2-3+ pitting edema of legs bilat Neurologic: alert, oriented x 3, other - no gross motor deficits Intake and Output 07/05/17 07/06/17 19:00 07:00 Intake Total 360 ml 240 ml Output Total 0 ml Balance 360 ml 240 ml Intake Oral 360 ml 240 ml Output Urine Total 0 ml Stool Total 0 ml # Voids 4 # Bowel Movements 2 Laboratory Tests Test 07/06/17 08:25 White Blood Count 6.6 K/UL (4.8-10.8) Red Blood Count 2.91 M/UL (4.70-6.10) L Hemoglobin 9.2 G/DL (14.2-18.0) L Hematocrit 29.2 % (42.0-52.0) L Mean Corpuscular Volume 101 FL (80-99) H Mean Corpuscular Hemoglobin 31.8 PG (27.0-31.0) H Mean Corpuscular Hemoglobin Concent 31.6 G/DL (32.0-36.0) L Red Cell Distribution Width 20.7 % (11.6-14.8) H Platelet Count 62 K/UL (150-450) L Mean Platelet Volume 7.1 FL (6.5-10.1) Neutrophils (%) (Auto) % (45.0-75.0) Lymphocytes (%) (Auto) % (20.0-45.0) Monocytes (%) (Auto) % (1.0-10.0) Eosinophils (%) (Auto) % (0.0-3.0) Basophils (%) (Auto) % (0.0-2.0) Differential Total Cells Counted 100 Neutrophils % (Manual) 50 % (45-75) Lymphocytes % (Manual) 20 % (20-45) Monocytes % (Manual) 22 % (1-10) H Eosinophils % (Manual) 8 % (0-3) H Basophils % (Manual) 0 % (0-2) Band Neutrophils 0 % (0-8) Platelet Estimate Decreased L Platelet Morphology Normal Hypochromasia 1+ Anisocytosis 2+ Macrocytosis 1+ Sodium Level 140 MMOL/L (136-145) Potassium Level 4.4 MMOL/L (3.5-5.1) Chloride Level 97 MMOL/L (98-107) L Carbon Dioxide Level 35 MMOL/L (21-32) H Anion Gap 8 mmol/L (5-15) Blood Urea Nitrogen 42 mg/dL (7-18) H Creatinine 10.5 MG/DL (0.55-1.30) H Estimat Glomerular Filtration Rate 6.2 mL/min (>60) Glucose Level 92 MG/DL (74-106) Calcium Level 8.5 MG/DL (8.5-10.1) Total Bilirubin 1.6 MG/DL (0.2-1.0) H Direct Bilirubin 0.8 MG/DL (0.0-0.3) H Aspartate Amino Transf (AST/SGOT) 41 U/L (15-37) H Alanine Aminotransferase (ALT/SGPT) 24 U/L (12-78) Alkaline Phosphatase 122 U/L (46-116) H Troponin I 0.064 ng/mL (0.000-0.056) Total Protein 6.6 G/DL (6.4-8.2) Albumin 2.5 G/DL (3.4-5.0) L Globulin 4.1 g/dL Albumin/Globulin Ratio 0.6 (1.0-2.7) L QUETA CONWAY Jul 06, 2017 14:16
[2017-07-06] MEDS ORDERED: Heparin 5000 units/ml inj IV ONE (14:30)
[2017-07-06] MEDS ORDERED: Heparin 25,000u/D5W 500ml 500 ML IV SCH (14:30)
[2017-07-06] MEDS: Metoprolol 25mg tab ORAL SCH ×2 (15:11→21:28)
[2017-07-06 15:24] LABS: HEMATOCRIT 29.2 % (42.0-52.0); HEMOGLOBIN 8.9 G/DL (14.2-18.0); MEAN CORPUSCULAR VOLUME 101 FL (80-99); PLATELET COUNT 61 K/UL (150-450); RED BLOOD COUNT 2.89 M/UL (4.70-6.10); RED CELL DISTRIBUTION WIDTH 20.8 % (11.6-14.8); WHITE BLOOD COUNT 6.5 K/UL (4.8-10.8)
[2017-07-06] MEDS: Eliquis 2.5mg tablet ORAL SCH (17:41)
[2017-07-06] MEDS ORDERED: Miralax 17gm pkt ORAL PRN (18:30)
[2017-07-06] MEDS: Dyna-Hex 2% Top Sol 2oz TOPIC SCH (20:39)
--- NOTE | 2017-07-06 23:15 | General Progress Note ---
Assessment/Plan Assessment/Plan #. Left leg dvt --> acute onset, will need to review final duplex results --> begin on apixaban daily x 3 months, low h/h will need to monitor closely --> okay to change to different anticoagulant if renal clearance an issue --> If h/h downtrends below 7.5, consider ivc filter placement. --> Hemoglobin currently >7.5 #. Anemia secondary to chronic disease. --> Hemoglobin levels have remained above goal. No blood transfusion required at this time. --> S/P abd CAT scan revealing evidence of hepatic cirrhosis. --> Continue to closely monitor and trend cbc daily. --> Anemia workup completed and reviewed. Iron 42, TIBC 180, Ferritin 593, B12 876. --> Ferritin is >500, hgb goal is >7 --> Anemia w/u has been reviewed --> ++Occult blood. Consider GI Services and Recs. # Hepatosplenomegaly. Ascites. There is also evidence of generalized anasarca, with pleural fluid and generalized subcutaneous edema --> Abd pain improved on pain management #. Anemia of kidney disease --> HD as needed per nephrology team --> Monitor closely. --> Does not require iron at this time #. Generalized body ache related to fluid overload. #. End-stage renal disease, on hemodialysis as needed --> Monitor. S/P HD. #. Cardiomegaly. S/P Chest Xray --> Persistent but slightly decreased size of known right lung cavitary lesion. --> Persistent extensive interstitial and bilateral airspace opacities. --> Edema improved. Subjective Date patient seen: Jul 06, 2017 Constitutional: Denies: no symptoms, chills, diaphoresis, fever, malaise, weakness, other HEENT: Denies: no symptoms, eye pain, blurred vision, tearing, double vision, ear pain, ear discharge, nose pain, nose congestion, throat pain, throat swelling, mouth pain, mouth swelling, other Cardiovascular: Denies: no symptoms, chest pain, edema, irregular heart rate, lightheadedness, palpitations, syncope, other Respiratory: Denies: no symptoms, cough, orthopnea, shortness of breath, SOB with excertion, SOB at rest, sputum, stridor, wheezing, other Gastrointestinal/Abdominal: Denies: no symptoms, abdomen distended, abdominal pain, black stools, tarry stools, blood in stool, constipated, diarrhea, difficulty swallowing, nausea, poor appetite, poor fluid intake, rectal bleeding , vomiting, other Genitourinary: Denies: no symptoms, burning, discharge, frequency, flank pain, hematuria, incontinence, pain, urgency, other Neurologic/Psychiatric: Denies: no symptoms, anxiety, depressed, emotional problems, headache, numbness, paresthesia, pre-existing deficit, seizure, tingling, tremors, weakness, other Hematologic/Lymphatic: Reports: anemia Allergies: Coded Allergies: IODINE AND IODIDE CONTAINING PRODUC (Verified Allergy, Mild, itching and pruritis, 06/25/17) Uncoded Allergies: CONTRAST/DYE (Allergy, Intermediate, PRURITIS AND ITCHING, 06/25/17) Subjective Noncompliant with some meds today. Anxious. Objective Last 24 Hour Vital Signs Date Time Temp Pulse Resp B/P (MAP) Pulse Ox O2 Delivery O2 Flow Rate FiO2 07/06/17 21:28 98 130/86 07/06/17 20:09 97.4 98 20 130/86 98 Nasal Cannula 97.4 07/06/17 19:39 Nasal Cannula 2.0 28 07/06/17 19:38 102 21 Nasal Cannula 2.0 28 07/06/17 19:38 93 Nasal Cannula 2.0 28 07/06/17 19:25 128 07/06/17 17:43 97.9 07/06/17 17:41 125/98 07/06/17 17:05 97.9 07/06/17 16:13 97.9 102 21 125/98 99 97.9 07/06/17 16:00 121 07/06/17 15:11 141 123/101 07/06/17 14:24 141 07/06/17 14:05 97.7 07/06/17 13:06 97.7 07/06/17 12:21 97.7 07/06/17 12:00 98.3 65 20 123/101 98 98.3 07/06/17 12:00 141 07/06/17 10:41 140/80 07/06/17 08:35 Nasal Cannula 2.0 28 07/06/17 08:35 98 Nasal Cannula 2.0 28 07/06/17 08:34 122 22 Nasal Cannula 2.0 28 07/06/17 08:13 97.7 07/06/17 08:12 67 106/57 07/06/17 08:00 134 07/06/17 07:39 97.7 67 20 106/57 99 97.7 07/06/17 06:27 134 93/60 07/06/17 04:24 138 07/06/17 04:00 98.1 135 22 121/84 100 98.1 07/06/17 03:20 98.4 123 22 130/90 98 98.4 07/06/17 00:55 112 07/06/17 00:00 98.0 126 20 110/82 97 Nasal Cannula 2.5 98.0 Intake and Output 07/05/17 07/06/17 19:00 07:00 Intake Total 360 ml 240 ml Output Total 0 ml Balance 360 ml 240 ml Intake Oral 360 ml 240 ml Output Urine Total 0 ml Stool Total 0 ml # Voids 4 # Bowel Movements 2 Laboratory Tests 07/06/17 08:25: White Blood Count 6.6, Red Blood Count 2.91L, Hemoglobin 9.2L, Hematocrit 29.2L , Mean Corpuscular Volume 101H, Mean Corpuscular Hemoglobin 31.8H, Mean Corpuscular Hemoglobin Concent 31.6L, Red Cell Distribution Width 20.7H, Platelet Count 62L, Mean Platelet Volume 7.1, Neutrophils (%) (Auto) , Lymphocytes (%) (Auto) , Monocytes (%) (Auto) , Eosinophils (%) (Auto) , Basophils (%) (Auto) , Differential Total Cells Counted 100, Neutrophils % ( Manual) 50, Lymphocytes % (Manual) 20, Monocytes % (Manual) 22H, Eosinophils % ( Manual) 8H, Basophils % (Manual) 0, Band Neutrophils 0, Platelet Estimate DecreasedL, Platelet Morphology Normal, Hypochromasia 1+, Anisocytosis 2+, Macrocytosis 1+, Sodium Level 140, Potassium Level 4.4, Chloride Level 97L, Carbon Dioxide Level 35H, Anion Gap 8, Blood Urea Nitrogen 42H, Creatinine 10.5H , Estimat Glomerular Filtration Rate 6.2, Glucose Level 92, Calcium Level 8.5, Total Bilirubin 1.6H, Direct Bilirubin 0.8H, Aspartate Amino Transf (AST/SGOT) 41H, Alanine Aminotransferase (ALT/SGPT) 24, Alkaline Phosphatase 122H, Troponin I 0.064H, Total Protein 6.6, Albumin 2.5L, Globulin 4.1, Albumin/ Globulin Ratio 0.6L 07/06/17 15:10: White Blood Count 6.5, Red Blood Count 2.89L, Hemoglobin 8.9L, Hematocrit 29.2L , Mean Corpuscular Volume 101H, Mean Corpuscular Hemoglobin 30.8, Mean Corpuscular Hemoglobin Concent 30.5L, Red Cell Distribution Width 20.8H, Platelet Count 61L, Mean Platelet Volume 7.7, Neutrophils (%) (Auto) , Lymphocytes (%) (Auto) , Monocytes (%) (Auto) , Eosinophils (%) (Auto) , Basophils (%) (Auto) , Differential Total Cells Counted 100, Neutrophils % ( Manual) 55, Lymphocytes % (Manual) 24, Monocytes % (Manual) 15H, Eosinophils % ( Manual) 6H, Basophils % (Manual) 0, Band Neutrophils 0, Platelet Estimate DecreasedL, Platelet Morphology Normal, Hypochromasia 1+, Anisocytosis 2+, Macrocytosis 1+, Activated Partial Thromboplast Time 38H Height (Feet): 5 Height (Inches): 7.00 Weight (Pounds): 235 General Appearance: mild distress Respiratory/Chest: decreased breath sounds Edema: trace edema Irving Parker MD Jul 06, 2017 23:15
[2017-07-07] VITALS (7 sets, daily range): BP systolic 103–137; BP diastolic 54–94
[2017-07-07] MEDS: Metoprolol 5mg/5ml Inj IVP SCH ×3 (00:05→00:38)
[2017-07-07] MEDS: metroNIDAZOLE 500mg tab ORAL SCH (05:51)
[2017-07-07] MEDS: Metoprolol 25mg tab ORAL SCH ×2 (05:52→14:37)
[2017-07-07] MEDS: Docusate 100mg cap ORAL SCH ×3 (09:27→18:39)
[2017-07-07] MEDS: Lisinopril 20mg tab ORAL SCH ×2 (09:27→18:39)
[2017-07-07] MEDS: Eliquis 2.5mg tablet ORAL SCH ×2 (09:32→18:40)
--- NOTE | 2017-07-07 10:10 | Nephrology Progress Note ---
Assessment/Plan Problem List: (1) ESRD (end stage renal disease) on dialysis (2) Shortness of breath (3) Anemia Assessment worsenning Anemia ESRD , missed HD , admitted with high K and pulmonary edema Acute respiratory distress due to volume overload elevated troponin r/o ACS h/o COPD ? exacerbation HTN urgency Cardiomyopathy L AICD anemia of chronic kidney disease Hx of CVA Plan Plan: Low H&H - consider transfusion HD next 4/2 Transfused Phos binders BP meds adjustment Optimize cardiac status per orders Subjective ROS Limited/Unobtainable: No Constitutional: Reports: malaise Objective Objective Last 24 Hour Vital Signs Date Time Temp Pulse Resp B/P (MAP) Pulse Ox O2 Delivery O2 Flow Rate FiO2 07/07/17 09:27 120/79 07/07/17 08:00 98.2 104 21 120/79 82 Room Air 98.2 07/07/17 05:52 128 119/94 07/07/17 04:16 131 07/07/17 03:46 96.9 128 22 119/94 92 Nasal Cannula 96.9 07/07/17 00:38 128 107/81 07/07/17 00:22 126 125/66 07/07/17 00:05 138 116/65 07/07/17 00:03 130 07/06/17 23:38 98.0 86 19 126/88 96 Nasal Cannula 98.0 07/06/17 21:28 98 130/86 07/06/17 20:09 97.4 98 20 130/86 98 Nasal Cannula 97.4 07/06/17 19:39 Nasal Cannula 2.0 28 07/06/17 19:38 102 21 Nasal Cannula 2.0 28 07/06/17 19:38 93 Nasal Cannula 2.0 28 07/06/17 19:25 128 07/06/17 17:43 97.9 07/06/17 17:41 125/98 07/06/17 17:05 97.9 07/06/17 16:13 97.9 102 21 125/98 99 97.9 07/06/17 16:00 121 07/06/17 15:11 141 123/101 07/06/17 14:24 141 07/06/17 14:05 97.7 07/06/17 13:06 97.7 07/06/17 12:21 97.7 07/06/17 12:00 98.3 65 20 123/101 98 98.3 07/06/17 12:00 141 07/06/17 10:41 140/80 Intake and Output 07/06/17 07/07/17 19:00 07:00 Intake Total 800 ml Balance 800 ml Intake Oral 800 ml # Voids 1 Laboratory Tests 07/06/17 15:10: White Blood Count 6.5, Red Blood Count 2.89L, Hemoglobin 8.9L, Hematocrit 29.2L , Mean Corpuscular Volume 101H, Mean Corpuscular Hemoglobin 30.8, Mean Corpuscular Hemoglobin Concent 30.5L, Red Cell Distribution Width 20.8H, Platelet Count 61L, Mean Platelet Volume 7.7, Neutrophils (%) (Auto) , Lymphocytes (%) (Auto) , Monocytes (%) (Auto) , Eosinophils (%) (Auto) , Basophils (%) (Auto) , Differential Total Cells Counted 100, Neutrophils % ( Manual) 55, Lymphocytes % (Manual) 24, Monocytes % (Manual) 15H, Eosinophils % ( Manual) 6H, Basophils % (Manual) 0, Band Neutrophils 0, Platelet Estimate DecreasedL, Platelet Morphology Normal, Hypochromasia 1+, Anisocytosis 2+, Macrocytosis 1+, Activated Partial Thromboplast Time 38H Height (Feet): 5 Height (Inches): 7.00 Weight (Pounds): 243 General Appearance: no apparent distress Objective no change LIAM MONTELONGO Jul 07, 2017 10:10
--- NOTE | 2017-07-07 10:43 | Diagnostic Imaging Report ---
Indication: Reason For Exam: SOB Technique: One view of the chest Comparison: 07/04/2017 Findings: The heart is markedly enlarged. Cavitary right lung lesion is again demonstrated. Diffuse interstitial and airspace congestion versus infiltrates appears worse. AICD, right jugular central venous catheter again demonstrated Impression: Worsening bilateral interstitial and airspace infiltrates versus edema, over 3 days Cavitary right midlung lesion again demonstrated
--- NOTE | 2017-07-07 10:51 | General Progress Note ---
Assessment/Plan Assessment/Plan Assessment - gallstones - abnormal LFT - suspect due to cirrhosis +/- meds, patient declines HIDA - Anemia, multifactorial - OB (+) Stool - patient declines EGD/Colon - ESRD/HD - DM - HTN - COPD - Cavitary lung disease - abnormal GB ultrasound - declines HIDA - Thrombocytopenia - cirrhotic appearing liver on CT - Hepatitis C Ab (+)/ PCR (-) - Poor prognosis Recommendations - PO as tolerated - follow symptoms and exam - monitor LFT - avoid hepatotoxic meds - PRN tylenol d/c'd - abx per ID - transfuse PRN - Acid blockade - current meds reviewed with pharm D - no suspect hepatotoxic meds - ? recent elevation due to 10 d Rifampin (now off) -- d/w ID Subjective Allergies: Coded Allergies: IODINE AND IODIDE CONTAINING PRODUC (Verified Allergy, Mild, itching and pruritis, 06/25/17) Uncoded Allergies: CONTRAST/DYE (Allergy, Intermediate, PRURITIS AND ITCHING, 06/25/17) Subjective above noted d/w RN patient declining HIDA - says cannot lay down that long due to SOB also declines EGD/Colon - says too weak to have the procedures Objective Last 24 Hour Vital Signs Date Time Temp Pulse Resp B/P (MAP) Pulse Ox O2 Delivery O2 Flow Rate FiO2 07/07/17 10:23 98.2 07/07/17 10:18 98.2 07/07/17 09:27 120/79 07/07/17 08:00 98.2 104 21 120/79 82 Room Air 98.2 07/07/17 05:52 128 119/94 07/07/17 04:16 131 07/07/17 03:46 96.9 128 22 119/94 92 Nasal Cannula 96.9 07/07/17 00:38 128 107/81 07/07/17 00:22 126 125/66 07/07/17 00:05 138 116/65 07/07/17 00:03 130 07/06/17 23:38 98.0 86 19 126/88 96 Nasal Cannula 98.0 07/06/17 21:28 98 130/86 07/06/17 20:09 97.4 98 20 130/86 98 Nasal Cannula 97.4 07/06/17 19:39 Nasal Cannula 2.0 28 07/06/17 19:38 102 21 Nasal Cannula 2.0 28 07/06/17 19:38 93 Nasal Cannula 2.0 28 07/06/17 19:25 128 07/06/17 17:43 97.9 07/06/17 17:41 125/98 07/06/17 17:05 97.9 07/06/17 16:13 97.9 102 21 125/98 99 97.9 07/06/17 16:00 121 07/06/17 15:11 141 123/101 07/06/17 14:24 141 07/06/17 14:05 97.7 07/06/17 13:06 97.7 07/06/17 12:21 97.7 07/06/17 12:00 98.3 65 20 123/101 98 98.3 07/06/17 12:00 141 07/06/17 10:41 140/80 Intake and Output 07/06/17 07/07/17 19:00 07:00 Intake Total 800 ml Balance 800 ml Intake Oral 800 ml # Voids 1 Laboratory Tests 07/06/17 15:10: White Blood Count 6.5, Red Blood Count 2.89L, Hemoglobin 8.9L, Hematocrit 29.2L , Mean Corpuscular Volume 101H, Mean Corpuscular Hemoglobin 30.8, Mean Corpuscular Hemoglobin Concent 30.5L, Red Cell Distribution Width 20.8H, Platelet Count 61L, Mean Platelet Volume 7.7, Neutrophils (%) (Auto) , Lymphocytes (%) (Auto) , Monocytes (%) (Auto) , Eosinophils (%) (Auto) , Basophils (%) (Auto) , Differential Total Cells Counted 100, Neutrophils % ( Manual) 55, Lymphocytes % (Manual) 24, Monocytes % (Manual) 15H, Eosinophils % ( Manual) 6H, Basophils % (Manual) 0, Band Neutrophils 0, Platelet Estimate DecreasedL, Platelet Morphology Normal, Hypochromasia 1+, Anisocytosis 2+, Macrocytosis 1+, Activated Partial Thromboplast Time 38H Height (Feet): 5 Height (Inches): 7.00 Weight (Pounds): 243 Objective WDWN AA Man NCAT supple CTA RRR Soft mildly distended, (+) improved RUQ TTP, (+) trunk edema (+) leg edema PERCY JOYNER Jul 07, 2017 10:51
--- NOTE | 2017-07-07 11:09 | Infectious Diseases Prog Note ---
Assessment/Plan Assessment/Plan Cavitary PNA. SCx: Neg ( m/l necrotizing Pneum, r/o Fungal, r/o TB ) ; improving -CT chest 06/25: Since the prior study of 06/15/2017, and. From further reduction in size of previously demonstrated thick walled right upper lobe cavitary mass. This was previously thought to most likely represent a cavitary inflammatory mass, and the interim reduction in size certainly supports that. Much less likely a cavitary neoplasm, but follow-up to resolution is recommended. Markedly improved parenchymal disease bilaterally, since the previous study. Nonetheless , extensive atelectasis and groundglass consolidation persists. Persistent small right pleural effusion, smaller than on the prior study. Resolved left pleural effusion 6 mm nodular opacity in the right upper lobe, not evident previously but likely obscured by surrounding consolidated lung parenchyma. This should be followed up in 6 months to one year depending on results of interim follow-up exams -CXR 06/21: Persistent but slightly decreased size of known right lung cavitary lesion. Persistent extensive interstitial and bilateral airspace opacities. -sp cx 06/05, 06/06 normal resp jordin; repeat sp cx 06/18 PsA (singh S) + Providencia stuarti (S Ceftriaxone, R Cipro) (likely superinfection/HCAP) Rsp status improved but on 06/[address] his condition worsen T-SPOT :Neg AFB x 3 : Neg MTB PCR x2 : neg cryptococcus Ag, Histoplams mycelial Ab , Blastomyces ab : neg ; histoplasma yeast ab (not able to be done due to anticomplementary activity) -Cocci, Asp ag p -Fungitell + 144 (?aspergillosis vs false positive) 06/21 Xray : improvement of cavity CT chest 06/15: Slightly smaller (6 cm diameter ) but mostly unchanged cavitary lesion in the right lung, previously thought to represent a cavitating inflammatory process. Lung abscess is certainly a possibility. Fairly extensive bilateral pulmonary parenchymal consolidation, slightly increased from previous exam of 06/05/2017. Likely a combination of pulmonary edema and pneumonia. Small right and trace left pleural effusion, new/increased from the previous study. CT 06/05: 7.8 x 5.3 x 6.6 cm dense opacity in the posterior inferior right upper lobe with a central cavitation. Chest x-ray : right mid lung infiltrate, possible cavitation Rule out tuberculosis, fungal infection, or necrotizing pneumonia. CRP 14 Influenza negative Coccidioidal ,Galactomannan : NEG ( PER LAB ) Transaminitis , improving after stopping rifampin 2/2 Hep C cirrhosis- no active Hep C as VL not detected -CT abd/p: Evidence of hepatic cirrhosis. Hepatosplenomegaly. evidence of generalized anasarca, with pleural fluid and generalized subcutaneous edema. Cholelithiasis, also previously reported. Possible diverticulosis. No evidence of diverticulitis US Abd : Cholelithiasis. There is gallbladder wall thickening, likely related to hemodynamic abnormalities Splenomegaly. Evidence of hepatic cirrhosis HIV : NEG Hep Panel B neg , C Ab : +ve , VL not detected leukopenia and TCP 2/2 splenomegaly Seizure disorder History of CVA History of pacemaker placement Hyperlipidemia Hypertension COPD/asthma End-stage renal disease, on hemodialysis Diabetes Anxiety Anemia Echo, ejection fraction 45% to 50%. PLAN: -Continue Flagyl (in addition with Levaquin will provide anaerobic coverage for possible aspiration/cavitary and now PsA PNA as no isolation of resistant organisms); abx d# 33/ 42 Continue empiric Ethambutol and Levaquin, Amikcain ( empiric TB AB Rx d# 24 ) 07/06 DC Voriconazole ( low antonio for fungal infection , and in the setting of cirrhosis ) 07/05 SP Micafungin abx d#20 , Rifampin 600mg qd #10 07/01 SP Ceftriaxone #10 06/28 SP Amikacin #15 06/25 SP PO Voriconazole #3 06/20 SP Liposomal Ampho #8 06/17 SP IV Vancomycin #14, Meropenem #5 06/13 SP Zosyn d# 10 3 SP Zithromax D# 6 f/u sputum culture (fungal, and AFB x3). -daily CMP Rec BAL ( DW PCP ) Subjective Constitutional: Denies: no symptoms, fever, chills, fatigue, anorexia, drenching sweats, other Allergies: Coded Allergies: IODINE AND IODIDE CONTAINING PRODUC (Verified Allergy, Mild, itching and pruritis, 06/25/17) Uncoded Allergies: CONTRAST/DYE (Allergy, Intermediate, PRURITIS AND ITCHING, 06/25/17) Subjective feeling better Objective Vital Signs Last 24 Hour Vital Signs Date Time Temp Pulse Resp B/P (MAP) Pulse Ox O2 Delivery O2 Flow Rate FiO2 4/2/18 10:23 98.2 07/07/17 10:18 98.2 07/07/17 09:27 120/79 07/07/17 08:00 98.2 104 21 120/79 82 Room Air 98.2 07/07/17 05:52 128 119/94 07/07/17 04:16 131 07/07/17 03:46 96.9 128 22 119/94 92 Nasal Cannula 96.9 07/07/17 00:38 128 107/81 07/07/17 00:22 126 125/66 07/07/17 00:05 138 116/65 07/07/17 00:03 130 07/06/17 23:38 98.0 86 19 126/88 96 Nasal Cannula 98.0 07/06/17 21:28 98 130/86 07/06/17 20:09 97.4 98 20 130/86 98 Nasal Cannula 97.4 07/06/17 19:39 Nasal Cannula 2.0 28 07/06/17 19:38 102 21 Nasal Cannula 2.0 28 07/06/17 19:38 93 Nasal Cannula 2.0 28 07/06/17 19:25 128 07/06/17 17:43 97.9 07/06/17 17:41 125/98 07/06/17 17:05 97.9 07/06/17 16:13 97.9 102 21 125/98 99 97.9 07/06/17 16:00 121 07/06/17 15:11 141 123/101 07/06/17 14:24 141 07/06/17 14:05 97.7 07/06/17 13:06 97.7 07/06/17 12:21 97.7 07/06/17 12:00 98.3 65 20 123/101 98 98.3 07/06/17 12:00 141 Height (Feet): 5 Height (Inches): 7.00 Weight (Pounds): 243 HEENT: anicteric Respiratory/Chest: no respiratory distress Cardiovascular: regular rhythm Abdomen: non distended Laboratory Tests Test 07/06/17 15:10 07/07/17 10:20 White Blood Count 6.5 K/UL (4.8-10.8) Pending Red Blood Count 2.89 M/UL (4.70-6.10) L Pending Hemoglobin 8.9 G/DL (14.2-18.0) L Pending Hematocrit 29.2 % (42.0-52.0) L Pending Mean Corpuscular Volume 101 FL (80-99) H Pending Mean Corpuscular Hemoglobin 30.8 PG (27.0-31.0) Pending Mean Corpuscular Hemoglobin Concent 30.5 G/DL (32.0-36.0) L Pending Red Cell Distribution Width 20.8 % (11.6-14.8) H Pending Platelet Count 61 K/UL (150-450) L Pending Mean Platelet Volume 7.7 FL (6.5-10.1) Pending Neutrophils (%) (Auto) % (45.0-75.0) Pending Lymphocytes (%) (Auto) % (20.0-45.0) Pending Monocytes (%) (Auto) % (1.0-10.0) Pending Eosinophils (%) (Auto) % (0.0-3.0) Pending Basophils (%) (Auto) % (0.0-2.0) Pending Differential Total Cells Counted 100 Neutrophils % (Manual) 55 % (45-75) Lymphocytes % (Manual) 24 % (20-45) Monocytes % (Manual) 15 % (1-10) H Eosinophils % (Manual) 6 % (0-3) H Basophils % (Manual) 0 % (0-2) Band Neutrophils 0 % (0-8) Platelet Estimate Decreased L Platelet Morphology Normal Hypochromasia 1+ Anisocytosis 2+ Macrocytosis 1+ Activated Partial Thromboplast Time 38 SEC (23-33) H Sodium Level Pending Potassium Level Pending Chloride Level Pending Carbon Dioxide Level Pending Blood Urea Nitrogen Pending Creatinine Pending Estimat Glomerular Filtration Rate Pending Glucose Level Pending Calcium Level Pending Total Bilirubin Pending Aspartate Amino Transf (AST/SGOT) Pending Alanine Aminotransferase (ALT/SGPT) Pending Alkaline Phosphatase Pending Troponin I Pending Total Protein Pending Albumin Pending Globulin Pending Current Medications Medications (Trade) Dose Ordered Sig/Jose Route PRN Reason Start Time Stop Time Status Last Admin Dose Admin Albuterol/ Ipratropium (Albuterol/ Ipratropium) 3 ml Q4H PRN HHN Shortness of Breath 07/06/17 04:30 07/10/17 08:29 Alprazolam (Xanax) 2 mg DAILYPRN PRN ORAL For Anxiety 07/06/17 08:45 07/09/17 08:44 07/06/17 17:40 Amikacin Protocol (Amikacin pharmacy to dose) 1 ea DAILY PRN MISC Per rx protocol 07/06/17 09:00 08/03/17 15:14 Amikacin Sulfate 1000 mg/Dextrose 114 ml @ 228 mls/hr FRI-FRI-FRI IV 07/07/17 21:00 07/11/17 20:59 Apixaban (Eliquis) 2.5 mg BID ORAL 07/06/17 18:00 08/05/17 17:59 07/07/17 09:32 Carisoprodol (Soma) 350 mg Q6H PRN ORAL MUSCLE SPASMS 07/06/17 07:00 07/14/17 18:59 07/07/17 10:18 Chlorhexidine Gluconate (Mireille-Hex 2%) 1 applic DAILY@2000 TOPIC 07/06/17 20:00 08/02/17 19:59 07/06/17 20:39 Clonidine HCl (Catapres Tab) 0.1 mg Q4H PRN ORAL bp over 160 syst 07/06/17 07:30 07/19/17 11:29 Dextrose (Dextrose 50%) STAT PRN IV Hypoglycemia 07/06/17 19:00 07/14/17 18:59 Docusate Sodium (Colace) 100 mg THREE TIMES A DAY ORAL 07/06/17 09:00 07/18/17 13:00 07/07/17 09:27 Ethambutol HCl (Myambutol) 1,000 mg 3XW ORAL 07/07/17 09:00 07/18/17 23:59 Hydromorphone HCl (Dilaudid) 1 mg Q4H PRN IVP Moderate Pain (Pain Scale 4-6) 07/06/17 07:15 07/09/17 11:14 Hydromorphone HCl (Dilaudid) 2 mg Q4H PRN IVP Severe Pain (Pain Scale 7-10) 07/06/17 07:15 07/09/17 11:14 07/07/17 10:23 Levofloxacin (Levaquin) 750 mg EVERY OTHER DAY@2000 ORAL 07/07/17 20:00 07/14/17 19:59 Lisinopril (Prinivil) 20 mg BID ORAL 07/06/17 09:00 07/19/17 18:00 07/07/17 09:27 Metoprolol Tartrate (Lopressor) 5 mg Q5MIN X 3 IVP 07/06/17 14:15 08/05/17 14:14 07/07/17 00:38 Metoprolol Tartrate (Lopressor) 25 mg EVERY 8 HOURS ORAL 07/06/17 15:00 08/05/17 14:59 07/07/17 05:52 Nitroglycerin (Ntg) 0.4 mg Q5M PRN SL Prn Chest Pain 07/06/17 04:00 07/19/17 11:29 Nitroglycerin (Ntg) 1 patch Q24H TDERMAL 07/06/17 11:30 07/19/17 11:30 Ondansetron HCl (Zofran) 4 mg Q6H PRN IVP Nausea & Vomiting 07/06/17 06:30 07/14/17 18:29 07/06/17 08:18 Pantoprazole (Protonix) 40 mg ACBREAKFAST ORAL 07/06/17 06:30 07/15/17 06:29 07/07/17 05:51 Polyethylene Glycol (Miralax) 17 gm DAILYPRN PRN ORAL Constipation 07/06/17 18:30 07/14/17 18:29 Promethazine HCl/ Codeine (Phenergan with Codeine) 5 ml Q4H PRN ORAL For Cough 07/06/17 06:30 07/22/17 10:30 Sevelamer Carbonate (Renvela) 2,400 mg THREE TIMES A DAY ORAL 07/06/17 09:00 07/16/17 18:44 07/07/17 09:26 Temazepam (Restoril) 15 mg HSPRN PRN ORAL Insomnia 07/06/17 21:00 07/09/17 20:59 07/07/17 01:55 Voriconazole (Vfend) 200 mg EVERY 12 HOURS ORAL 07/06/17 09:00 07/11/17 20:59 07/07/17 09:26 Cristofer Antunez MD Jul 07, 2017 11:09
[2017-07-07 11:15] LABS: HEMATOCRIT 30.8 % (42.0-52.0); HEMOGLOBIN 9.7 G/DL (14.2-18.0); MEAN CORPUSCULAR VOLUME 103 FL (80-99); PLATELET COUNT 72 K/UL (150-450); RED CELL DISTRIBUTION WIDTH 20.3 % (11.6-14.8); WHITE BLOOD COUNT 6.1 K/UL (4.8-10.8)
[2017-07-07 11:49] LABS: ALANINE AMINOTRANSFERASE 20 U/L (12-78); ALBUMIN 2.6 G/DL (3.4-5.0); ALBUMIN/GLOBULIN RATIO 0.6 (1.0-2.7); ALKALINE PHOSPHATASE 122 U/L (46-116); ANION GAP 7 mmol/L (5-15); BILIRUBIN,TOTAL 1.4 MG/DL (0.2-1.0); BLOOD UREA NITROGEN 53 mg/dL (7-18); CALCIUM 8.4 MG/DL (8.5-10.1); CARBON DIOXIDE 35 MMOL/L (21-32); CHLORIDE 94 MMOL/L (98-107); CREATININE 12.1 MG/DL (0.55-1.30); POTASSIUM 4.5 MMOL/L (3.5-5.1); SODIUM 136 MMOL/L (136-145)
[2017-07-07 11:52] LABS: BILIRUBIN,DIRECT 0.9 MG/DL (0.0-0.3)
--- NOTE | 2017-07-07 12:04 | Internal Med Progress Note ---
Subjective Date of Service: Jul 07, 2017 Physician Name Zoey Pires Attending Physician Chaitanya Weinstein MD Current Medications Medications (Trade) Dose Ordered Sig/Jose Route PRN Reason Start Time Stop Time Status Last Admin Dose Admin Albuterol/ Ipratropium (Albuterol/ Ipratropium) 3 ml Q4H PRN HHN Shortness of Breath 07/06/17 04:30 07/10/17 08:29 Alprazolam (Xanax) 2 mg DAILYPRN PRN ORAL For Anxiety 07/06/17 08:45 07/09/17 08:44 07/06/17 17:40 Amikacin Protocol (Amikacin pharmacy to dose) 1 ea DAILY PRN MISC Per rx protocol 07/06/17 09:00 08/03/17 15:14 Amikacin Sulfate 1000 mg/Dextrose 114 ml @ 228 mls/hr FRI-FRI-FRI IV 07/07/17 21:00 07/11/17 20:59 Apixaban (Eliquis) 2.5 mg BID ORAL 07/06/17 18:00 08/05/17 17:59 07/07/17 09:32 Carisoprodol (Soma) 350 mg Q6H PRN ORAL MUSCLE SPASMS 07/06/17 07:00 07/14/17 18:59 07/07/17 10:18 Chlorhexidine Gluconate (Mireille-Hex 2%) 1 applic DAILY@2000 TOPIC 07/06/17 20:00 08/02/17 19:59 07/06/17 20:39 Clonidine HCl (Catapres Tab) 0.1 mg Q4H PRN ORAL bp over 160 syst 07/06/17 07:30 07/19/17 11:29 Dextrose (Dextrose 50%) STAT PRN IV Hypoglycemia 07/06/17 19:00 07/14/17 18:59 Docusate Sodium (Colace) 100 mg THREE TIMES A DAY ORAL 07/06/17 09:00 07/18/17 13:00 07/07/17 09:27 Ethambutol HCl (Myambutol) 1,000 mg 3XW ORAL 07/07/17 09:00 07/18/17 23:59 Hydromorphone HCl (Dilaudid) 1 mg Q4H PRN IVP Moderate Pain (Pain Scale 4-6) 07/06/17 07:15 07/09/17 11:14 Hydromorphone HCl (Dilaudid) 2 mg Q4H PRN IVP Severe Pain (Pain Scale 7-10) 07/06/17 07:15 07/09/17 11:14 07/07/17 10:23 Levofloxacin (Levaquin) 750 mg EVERY OTHER DAY@2000 ORAL 07/07/17 20:00 07/14/17 19:59 Lisinopril (Prinivil) 20 mg BID ORAL 07/06/17 09:00 07/19/17 18:00 07/07/17 09:27 Metoprolol Tartrate (Lopressor) 5 mg Q5MIN X 3 IVP 07/06/17 14:15 08/05/17 14:14 07/07/17 00:38 Metoprolol Tartrate (Lopressor) 25 mg EVERY 8 HOURS ORAL 07/06/17 15:00 08/05/17 14:59 07/07/17 05:52 Nitroglycerin (Ntg) 0.4 mg Q5M PRN SL Prn Chest Pain 07/06/17 04:00 07/19/17 11:29 Nitroglycerin (Ntg) 1 patch Q24H TDERMAL 07/06/17 11:30 07/19/17 11:30 Ondansetron HCl (Zofran) 4 mg Q6H PRN IVP Nausea & Vomiting 07/06/17 06:30 07/14/17 18:29 07/06/17 08:18 Pantoprazole (Protonix) 40 mg ACBREAKFAST ORAL 07/06/17 06:30 07/15/17 06:29 07/07/17 05:51 Polyethylene Glycol (Miralax) 17 gm DAILYPRN PRN ORAL Constipation 07/06/17 18:30 07/14/17 18:29 Promethazine HCl/ Codeine (Phenergan with Codeine) 5 ml Q4H PRN ORAL For Cough 07/06/17 06:30 07/22/17 10:30 Sevelamer Carbonate (Renvela) 2,400 mg THREE TIMES A DAY ORAL 07/06/17 09:00 07/16/17 18:44 07/07/17 09:26 Temazepam (Restoril) 15 mg HSPRN PRN ORAL Insomnia 07/06/17 21:00 07/09/17 20:59 07/07/17 01:55 Voriconazole (Vfend) 200 mg EVERY 12 HOURS ORAL 07/06/17 09:00 07/11/17 20:59 07/07/17 09:26 Allergies: Coded Allergies: IODINE AND IODIDE CONTAINING PRODUC (Verified Allergy, Mild, itching and pruritis, 06/25/17) Uncoded Allergies: CONTRAST/DYE (Allergy, Intermediate, PRURITIS AND ITCHING, 06/25/17) ROS Limited/Unobtainable: No Constitutional: Reports: no symptoms HEENT: Reports: no symptoms Cardiovascular: Reports: chest pain Respiratory: Reports: shortness of breath Gastrointestinal/Abdominal: Reports: no symptoms Genitourinary: Reports: no symptoms Neurologic/Psychiatric: Reports: no symptoms Subjective 57 YO M admitted with chest pain and shortness of breath. Now pneumonia and candelaria heart failure. Back on nasal canula. Cover for Int Med-Dr Weinstein. Now atrial flutter with rapid ventricular rate 104-131 Objective Last Vital Signs Date Time Temp Pulse Resp B/P (MAP) Pulse Ox O2 Delivery O2 Flow Rate FiO2 07/07/17 10:23 98.2 07/07/17 09:27 120/79 07/07/17 08:00 104 21 82 Room Air 07/06/17 19:39 2.0 28 Laboratory Tests Test 07/06/17 15:10 07/07/17 10:20 White Blood Count 6.5 K/UL (4.8-10.8) 6.1 K/UL (4.8-10.8) Red Blood Count 2.89 M/UL (4.70-6.10) L 3.00 M/UL (4.70-6.10) L Hemoglobin 8.9 G/DL (14.2-18.0) L 9.7 G/DL (14.2-18.0) L Hematocrit 29.2 % (42.0-52.0) L 30.8 % (42.0-52.0) L Mean Corpuscular Volume 101 FL (80-99) H 103 FL (80-99) H Mean Corpuscular Hemoglobin 30.8 PG (27.0-31.0) 32.2 PG (27.0-31.0) H Mean Corpuscular Hemoglobin Concent 30.5 G/DL (32.0-36.0) L 31.3 G/DL (32.0-36.0) L Red Cell Distribution Width 20.8 % (11.6-14.8) H 20.3 % (11.6-14.8) H Platelet Count 61 K/UL (150-450) L 72 K/UL (150-450) L Mean Platelet Volume 7.7 FL (6.5-10.1) 9.5 FL (6.5-10.1) Neutrophils (%) (Auto) % (45.0-75.0) % (45.0-75.0) Lymphocytes (%) (Auto) % (20.0-45.0) % (20.0-45.0) Monocytes (%) (Auto) % (1.0-10.0) % (1.0-10.0) Eosinophils (%) (Auto) % (0.0-3.0) % (0.0-3.0) Basophils (%) (Auto) % (0.0-2.0) % (0.0-2.0) Differential Total Cells Counted 100 Neutrophils % (Manual) 55 % (45-75) Pending Lymphocytes % (Manual) 24 % (20-45) Pending Monocytes % (Manual) 15 % (1-10) H Eosinophils % (Manual) 6 % (0-3) H Basophils % (Manual) 0 % (0-2) Band Neutrophils 0 % (0-8) Platelet Estimate Decreased L Pending Platelet Morphology Normal Pending Hypochromasia 1+ Anisocytosis 2+ Macrocytosis 1+ Activated Partial Thromboplast Time 38 SEC (23-33) H Sodium Level 136 MMOL/L (136-145) Potassium Level 4.5 MMOL/L (3.5-5.1) Chloride Level 94 MMOL/L (98-107) L Carbon Dioxide Level 35 MMOL/L (21-32) H Anion Gap 7 mmol/L (5-15) Blood Urea Nitrogen 53 mg/dL (7-18) H Creatinine 12.1 MG/DL (0.55-1.30) H Estimat Glomerular Filtration Rate 5.2 mL/min (>60) Glucose Level 102 MG/DL (74-106) Calcium Level 8.4 MG/DL (8.5-10.1) L Total Bilirubin 1.4 MG/DL (0.2-1.0) H Direct Bilirubin 0.9 MG/DL (0.0-0.3) H Aspartate Amino Transf (AST/SGOT) Pending Alanine Aminotransferase (ALT/SGPT) 20 U/L (12-78) Alkaline Phosphatase 122 U/L (46-116) H Troponin I 0.075 ng/mL (0.000-0.056) Total Protein 6.7 G/DL (6.4-8.2) Albumin 2.6 G/DL (3.4-5.0) L Globulin 4.1 g/dL Albumin/Globulin Ratio 0.6 (1.0-2.7) L Intake and Output 07/06/17 07/07/17 19:00 07:00 Intake Total 800 ml Balance 800 ml Intake Oral 800 ml # Voids 1 Objective General Appearance: WD/WN, alert, moderate distress EENT: PERRL/EOMI, normal ENT inspection Neck: non-tender, normal alignment, supple, normal inspection Cardiovascular: Tachycardia; normal peripheral pulses, normal rate, regular rhythm, no gallop/murmur, no JVD Respiratory/Chest: Nasal canula; respiratory distress, crackles/rales, rhonchi - bilaterally, expiratory wheezing Abdomen: normal bowel sounds, non tender, soft, no organomegaly, no mass Extremities: normal range of motion Neurologic: bid analyst 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, no motor/sensory deficits Skin: normal pigmentation, warm/dry Assessment/Plan Problem List: (1) Atrial flutter with rapid ventricular response Assessment & Plan: D/C coreg; start metoprolol per cardiology consult. (2) Respiratory failure Assessment & Plan: CHF and Pneumonia. Currently on nasal canula. See pulmonay note. (3) Pleuritic chest pain (4) Hemoptysis Assessment & Plan: Due to pneumonia (5) Pneumonia Assessment & Plan: Providencia and pseudamonas. RUL and cavitary. Concerning for TB. Await AFB cultures-see ID consult. Continue vanco and ethambutol per ID. Continue rocephin, micafungin, flagyl, amikacin, levaquin, and rifampin (6) Shortness of breath (7) ESRD (end stage renal disease) on dialysis Assessment & Plan: See nephrology note. Last Hemodialysis 07/04/17 per nephrology (8) Hyperkalemia Assessment & Plan: Due to renal failure. Hemodialysis 06/12/17 per nephrology (9) COPD (chronic obstructive pulmonary disease) (10) HTN (hypertension) Assessment & Plan: Continue coreg and lisinopril. (11) CHF (congestive heart failure) (12) Elevated troponin Assessment & Plan: ?due to renal failure? See cardiology note. (13) Intractable abdominal pain Assessment & Plan: See surgery note. Await CT abdomen (14) Conjunctivitis Assessment & Plan: start tobramycin Status: deteriorating Assessment/Plan Discharge planning - coordination with [facility] pending ZOEY PIRES Jul 07, 2017 12:04
[2017-07-07 12:12] LABS: ASPARTATE AMINO TRANSFERASE 41 U/L (15-37)
[2017-07-07] MEDS: ALPRAZolam 0.5mg tab ORAL PRN (13:12)
[2017-07-07] MEDS ORDERED: dilTIAZem HCl 50mg/10ml Inj IVP PRN ×2 (13:15→13:45)
[2017-07-07] MEDS: Nitroglycerin Patch 0.4mg TDERMAL SCH (13:59)
--- NOTE | 2017-07-07 19:20 | Cardiology Progress Note ---
Assessment/Plan Assessment/Plan plueritic chest pain neg recent sig perfusion abn; systolic dysfunction on mild degree involving the septum cavitating lung lesion esrd htn anemia icd hx icd trop min abn related to esrd likely as no peak no jennifer venous duplex neg echo reviewed swma in septum (possible) as tech difficult study ef 45% dialysis per dr grimaldo bp better won coreg , acei and ntp afb smear neg cxr reviewed Subjective Subjective sleepign on dialysis Objective Last 24 Hour Vital Signs Date Time Temp Pulse Resp B/P (MAP) Pulse Ox O2 Delivery O2 Flow Rate FiO2 07/07/17 19:04 Nasal Cannula 3.5 07/07/17 18:40 99.5 07/07/17 18:39 132/84 07/07/17 18:30 98.9 85 20 132/84 Nasal Cannula 3.5 98.9 07/07/17 18:18 100 20 Nasal Cannula 3.0 32 07/07/17 18:17 Nasal Cannula 3.0 32 07/07/17 18:16 93 Nasal Cannula 3.0 32 07/07/17 16:43 116 07/07/17 16:22 99.5 07/07/17 16:20 113 07/07/17 16:17 99.5 69 20 125/66 98 Nasal Cannula 99.5 07/07/17 15:00 Nasal Cannula 3.5 07/07/17 15:00 99.5 20 103/54 Nasal Cannula 3.5 99.5 07/07/17 14:37 132 123/88 07/07/17 14:30 132 123/88 07/07/17 14:30 97.9 07/07/17 13:59 123/88 07/07/17 12:16 97.9 07/07/17 12:00 97.9 103 20 123/88 94 Nasal Cannula 97.9 07/07/17 11:16 135 07/07/17 10:23 98.2 07/07/17 10:18 98.2 07/07/17 09:27 120/79 07/07/17 08:00 98.2 104 21 120/79 82 Room Air 98.2 07/07/17 07:02 139 07/07/17 05:52 128 119/94 07/07/17 04:16 131 07/07/17 03:46 96.9 128 22 119/94 92 Nasal Cannula 96.9 07/07/17 00:38 128 107/81 07/07/17 00:22 126 125/66 07/07/17 00:05 138 116/65 07/07/17 00:03 130 07/06/17 23:38 98.0 86 19 126/88 96 Nasal Cannula 98.0 07/06/17 21:28 98 130/86 07/06/17 20:09 97.4 98 20 130/86 98 Nasal Cannula 97.4 07/06/17 19:39 Nasal Cannula 2.0 28 07/06/17 19:38 102 21 Nasal Cannula 2.0 28 07/06/17 19:38 93 Nasal Cannula 2.0 28 07/06/17 19:25 128 Intake and Output 07/06/17 07/07/17 19:00 07:00 Intake Total 800 ml Balance 800 ml Intake Oral 800 ml # Voids 1 Laboratory Tests Test 07/07/17 10:20 White Blood Count 6.1 K/UL (4.8-10.8) Red Blood Count 3.00 M/UL (4.70-6.10) L Hemoglobin 9.7 G/DL (14.2-18.0) L Hematocrit 30.8 % (42.0-52.0) L Mean Corpuscular Volume 103 FL (80-99) H Mean Corpuscular Hemoglobin 32.2 PG (27.0-31.0) H Mean Corpuscular Hemoglobin Concent 31.3 G/DL (32.0-36.0) L Red Cell Distribution Width 20.3 % (11.6-14.8) H Platelet Count 72 K/UL (150-450) L Mean Platelet Volume 9.5 FL (6.5-10.1) Neutrophils (%) (Auto) % (45.0-75.0) Lymphocytes (%) (Auto) % (20.0-45.0) Monocytes (%) (Auto) % (1.0-10.0) Eosinophils (%) (Auto) % (0.0-3.0) Basophils (%) (Auto) % (0.0-2.0) Differential Total Cells Counted 100 Neutrophils % (Manual) 51 % (45-75) Lymphocytes % (Manual) 17 % (20-45) L Monocytes % (Manual) 24 % (1-10) H Eosinophils % (Manual) 8 % (0-3) H Basophils % (Manual) 0 % (0-2) Band Neutrophils 0 % (0-8) Platelet Estimate Decreased L Platelet Morphology Normal Polychromasia 2+ Hypochromasia 1+ Anisocytosis 2+ Macrocytosis 1+ Sodium Level 136 MMOL/L (136-145) Potassium Level 4.5 MMOL/L (3.5-5.1) Chloride Level 94 MMOL/L (98-107) L Carbon Dioxide Level 35 MMOL/L (21-32) H Anion Gap 7 mmol/L (5-15) Blood Urea Nitrogen 53 mg/dL (7-18) H Creatinine 12.1 MG/DL (0.55-1.30) H Estimat Glomerular Filtration Rate 5.2 mL/min (>60) Glucose Level 102 MG/DL (74-106) Calcium Level 8.4 MG/DL (8.5-10.1) L Total Bilirubin 1.4 MG/DL (0.2-1.0) H Direct Bilirubin 0.9 MG/DL (0.0-0.3) H Aspartate Amino Transf (AST/SGOT) 41 U/L (15-37) H Alanine Aminotransferase (ALT/SGPT) 20 U/L (12-78) Alkaline Phosphatase 122 U/L (46-116) H Troponin I 0.075 ng/mL (0.000-0.056) Total Protein 6.7 G/DL (6.4-8.2) Albumin 2.6 G/DL (3.4-5.0) L Globulin 4.1 g/dL Albumin/Globulin Ratio 0.6 (1.0-2.7) L PRECIOUS GARCIA Jul 07, 2017 19:20
--- NOTE | 2017-07-07 19:29 | Cardiology Progress Note ---
Assessment/Plan Assessment/Plan plueritic chest pain neg recent sig perfusion abn; systolic dysfunction on mild degree involving the septum cavitating lung lesion imporved on recet ct esrd htn anemia icd hx edema afib tachy still despite q8h metoprolo will increase dose venous duplex neg echo reviewed swma in septum (possible) as tech difficult study ef 45% dialysis per dr grimaldo may need more fluid removal afb smear neg ct noted Subjective Cardiovascular: Reports: palpitations; Denies: chest pain, lightheadedness Respiratory: Denies: shortness of breath Gastrointestinal/Abdominal: Denies: abdomen distended Genitourinary: Denies: no symptoms Objective Last 24 Hour Vital Signs Date Time Temp Pulse Resp B/P (MAP) Pulse Ox O2 Delivery O2 Flow Rate FiO2 07/07/17 19:04 Nasal Cannula 3.5 07/07/17 18:40 99.5 07/07/17 18:39 132/84 07/07/17 18:30 98.9 85 20 132/84 Nasal Cannula 3.5 98.9 07/07/17 18:18 100 20 Nasal Cannula 3.0 32 07/07/17 18:17 Nasal Cannula 3.0 32 07/07/17 18:16 93 Nasal Cannula 3.0 32 07/07/17 16:43 116 07/07/17 16:22 99.5 07/07/17 16:20 113 07/07/17 16:17 99.5 69 20 125/66 98 Nasal Cannula 99.5 07/07/17 15:00 Nasal Cannula 3.5 07/07/17 15:00 99.5 20 103/54 Nasal Cannula 3.5 99.5 07/07/17 14:37 132 123/88 07/07/17 14:30 132 123/88 07/07/17 14:30 97.9 07/07/17 13:59 123/88 07/07/17 12:16 97.9 07/07/17 12:00 97.9 103 20 123/88 94 Nasal Cannula 97.9 07/07/17 11:16 135 07/07/17 10:23 98.2 07/07/17 10:18 98.2 07/07/17 09:27 120/79 07/07/17 08:00 98.2 104 21 120/79 82 Room Air 98.2 07/07/17 07:02 139 4/2/18 05:52 128 119/94 07/07/17 04:16 131 07/07/17 03:46 96.9 128 22 119/94 92 Nasal Cannula 96.9 07/07/17 00:38 128 107/81 07/07/17 00:22 126 125/66 07/07/17 00:05 138 116/65 07/07/17 00:03 130 07/06/17 23:38 98.0 86 19 126/88 96 Nasal Cannula 98.0 07/06/17 21:28 98 130/86 07/06/17 20:09 97.4 98 20 130/86 98 Nasal Cannula 97.4 07/06/17 19:39 Nasal Cannula 2.0 28 07/06/17 19:38 102 21 Nasal Cannula 2.0 28 07/06/17 19:38 93 Nasal Cannula 2.0 28 07/06/17 19:25 128 General Appearance: no apparent distress, alert Cardiovascular: tachycardia, irregularly irregular Respiratory/Chest: crackles/rales - right base Abdomen: normal bowel sounds, non tender, soft Extremities: moderate edema Intake and Output 07/06/17 07/07/17 19:00 07:00 Intake Total 800 ml Balance 800 ml Intake Oral 800 ml # Voids 1 Laboratory Tests Test 07/07/17 10:20 White Blood Count 6.1 K/UL (4.8-10.8) Red Blood Count 3.00 M/UL (4.70-6.10) L Hemoglobin 9.7 G/DL (14.2-18.0) L Hematocrit 30.8 % (42.0-52.0) L Mean Corpuscular Volume 103 FL (80-99) H Mean Corpuscular Hemoglobin 32.2 PG (27.0-31.0) H Mean Corpuscular Hemoglobin Concent 31.3 G/DL (32.0-36.0) L Red Cell Distribution Width 20.3 % (11.6-14.8) H Platelet Count 72 K/UL (150-450) L Mean Platelet Volume 9.5 FL (6.5-10.1) Neutrophils (%) (Auto) % (45.0-75.0) Lymphocytes (%) (Auto) % (20.0-45.0) Monocytes (%) (Auto) % (1.0-10.0) Eosinophils (%) (Auto) % (0.0-3.0) Basophils (%) (Auto) % (0.0-2.0) Differential Total Cells Counted 100 Neutrophils % (Manual) 51 % (45-75) Lymphocytes % (Manual) 17 % (20-45) L Monocytes % (Manual) 24 % (1-10) H Eosinophils % (Manual) 8 % (0-3) H Basophils % (Manual) 0 % (0-2) Band Neutrophils 0 % (0-8) Platelet Estimate Decreased L Platelet Morphology Normal Polychromasia 2+ Hypochromasia 1+ Anisocytosis 2+ Macrocytosis 1+ Sodium Level 136 MMOL/L (136-145) Potassium Level 4.5 MMOL/L (3.5-5.1) Chloride Level 94 MMOL/L (98-107) L Carbon Dioxide Level 35 MMOL/L (21-32) H Anion Gap 7 mmol/L (5-15) Blood Urea Nitrogen 53 mg/dL (7-18) H Creatinine 12.1 MG/DL (0.55-1.30) H Estimat Glomerular Filtration Rate 5.2 mL/min (>60) Glucose Level 102 MG/DL (74-106) Calcium Level 8.4 MG/DL (8.5-10.1) L Total Bilirubin 1.4 MG/DL (0.2-1.0) H Direct Bilirubin 0.9 MG/DL (0.0-0.3) H Aspartate Amino Transf (AST/SGOT) 41 U/L (15-37) H Alanine Aminotransferase (ALT/SGPT) 20 U/L (12-78) Alkaline Phosphatase 122 U/L (46-116) H Troponin I 0.075 ng/mL (0.000-0.056) Total Protein 6.7 G/DL (6.4-8.2) Albumin 2.6 G/DL (3.4-5.0) L Globulin 4.1 g/dL Albumin/Globulin Ratio 0.6 (1.0-2.7) L PRECIOUS GARCIA Jul 07, 2017 19:29
[2017-07-07] MEDS: Dyna-Hex 2% Top Sol 2oz TOPIC SCH (20:33)
[2017-07-07] MEDS: Metoprolol Tartrate 50mg tab ORAL SCH (21:21)
[2017-07-07] MEDS: Amikacin 1,000 MG in D5W 110 ML IV SCH (21:21)
[2017-07-08] VITALS (7 sets, daily range): BP systolic 108–134; BP diastolic 66–92
[2017-07-08 06:01] LABS: HEMATOCRIT 32.3 % (42.0-52.0); HEMOGLOBIN 9.7 G/DL (14.2-18.0); MEAN CORPUSCULAR VOLUME 104 FL (80-99); PLATELET COUNT 78 K/UL (150-450); RED BLOOD COUNT 3.11 M/UL (4.70-6.10); RED CELL DISTRIBUTION WIDTH 20.1 % (11.6-14.8); WHITE BLOOD COUNT 6.5 K/UL (4.8-10.8)
[2017-07-08 06:25] LABS: ALANINE AMINOTRANSFERASE 17 U/L (12-78); ALBUMIN 2.6 G/DL (3.4-5.0); ALBUMIN/GLOBULIN RATIO 0.6 (1.0-2.7); ALKALINE PHOSPHATASE 121 U/L (46-116); ANION GAP 6 mmol/L (5-15); ASPARTATE AMINO TRANSFERASE 37 U/L (15-37); BILIRUBIN,TOTAL 1.6 MG/DL (0.2-1.0); BLOOD UREA NITROGEN 47 mg/dL (7-18); CALCIUM 9.2 MG/DL (8.5-10.1); CARBON DIOXIDE 35 MMOL/L (21-32); CHLORIDE 97 MMOL/L (98-107); CREATININE 10.8 MG/DL (0.55-1.30); POTASSIUM 4.6 MMOL/L (3.5-5.1); SODIUM 138 MMOL/L (136-145)
[2017-07-08] MEDS: Metoprolol Tartrate 50mg tab ORAL SCH (08:36)
[2017-07-08] MEDS: Docusate 100mg cap ORAL SCH ×3 (08:36→17:13)
[2017-07-08] MEDS: Eliquis 2.5mg tablet ORAL SCH ×2 (08:37→17:13)
[2017-07-08] MEDS: Lisinopril 20mg tab ORAL SCH ×2 (08:37→17:13)
[2017-07-08] MEDS ORDERED: metroNIDAZOLE 500mg tab ORAL SCH (09:30)
[2017-07-08] MEDS: Nitroglycerin Patch 0.4mg TDERMAL SCH (11:30)
--- NOTE | 2017-07-08 11:45 | Infectious Diseases Prog Note ---
Assessment/Plan Assessment/Plan Cavitary PNA. SCx: Neg ( m/l necrotizing Pneum, vs aerobic abscess, doubt TB or fungal ) ; improving -CT chest 06/25: Since the prior study of 06/15/2017, and. From further reduction in size of previously demonstrated thick walled right upper lobe cavitary mass. This was previously thought to most likely represent a cavitary inflammatory mass, and the interim reduction in size certainly supports that. Much less likely a cavitary neoplasm, but follow-up to resolution is recommended. Markedly improved parenchymal disease bilaterally, since the previous study. Nonetheless , extensive atelectasis and groundglass consolidation persists. Persistent small right pleural effusion, smaller than on the prior study. Resolved left pleural effusion 6 mm nodular opacity in the right upper lobe, not evident previously but likely obscured by surrounding consolidated lung parenchyma. This should be followed up in 6 months to one year depending on results of interim follow-up exams -CXR 06/21: Persistent but slightly decreased size of known right lung cavitary lesion. Persistent extensive interstitial and bilateral airspace opacities. -sp cx 06/05, 06/06 normal resp jordin; repeat sp cx 06/18 PsA (singh S) + Providencia stuarti (S Ceftriaxone, R Cipro) (likely superinfection/HCAP) Rsp status improved but on 06/[address] his condition worsen T-SPOT :Neg AFB x 3 : Neg MTB PCR x2 : neg cryptococcus Ag, Histoplams mycelial Ab , Blastomyces ab : neg ; histoplasma yeast ab (not able to be done due to anticomplementary activity) -Cocci, Asp ag p -Fungitell + 144 (?aspergillosis vs false positive) 06/21 Xray : improvement of cavity CT chest 06/15: Slightly smaller (6 cm diameter ) but mostly unchanged cavitary lesion in the right lung, previously thought to represent a cavitating inflammatory process. Lung abscess is certainly a possibility. Fairly extensive bilateral pulmonary parenchymal consolidation, slightly increased from previous exam of 06/05/2017. Likely a combination of pulmonary edema and pneumonia. Small right and trace left pleural effusion, new/increased from the previous study. CT 06/05: 7.8 x 5.3 x 6.6 cm dense opacity in the posterior inferior right upper lobe with a central cavitation. Chest x-ray : right mid lung infiltrate, possible cavitation Rule out tuberculosis, fungal infection, or necrotizing pneumonia. CRP 14 Influenza negative Coccidioidal ,Galactomannan : NEG ( PER LAB ) Transaminitis , improving after stopping rifampin 2/2 Hep C cirrhosis- no active Hep C as VL not detected -CT abd/p: Evidence of hepatic cirrhosis. Hepatosplenomegaly. evidence of generalized anasarca, with pleural fluid and generalized subcutaneous edema. Cholelithiasis, also previously reported. Possible diverticulosis. No evidence of diverticulitis US Abd : Cholelithiasis. There is gallbladder wall thickening, likely related to hemodynamic abnormalities Splenomegaly. Evidence of hepatic cirrhosis HIV : NEG Hep Panel B neg , C Ab : +ve , VL not detected leukopenia and TCP 2/2 splenomegaly Seizure disorder History of CVA History of pacemaker placement Hyperlipidemia Hypertension COPD/asthma End-stage renal disease, on hemodialysis Diabetes Anxiety Anemia Echo, ejection fraction 45% to 50%. PLAN: - Add Zoysn d# 1 ( pt SOB and CXR worsen , better coverage of anaerobes, PSA and Providencia ); abx d# 34/ 42 Continue empiric Ethambutol and Levaquin, Amikacin ( empiric TB AB Rx d# 25 as per TB control request ) / SP Dc Flagyl 07/06 SP Voriconazole ( low antonio for fungal infection , and in the setting of cirrhosis ) 07/05 SP Micafungin abx d#20 , Rifampin 600mg qd #10 07/01 SP Ceftriaxone #10 06/28 SP Amikacin #15 06/25 SP PO Voriconazole #3 06/20 SP Liposomal Ampho #8 06/17 SP IV Vancomycin #14, Meropenem #5 06/13 SP Zosyn d# 10 3/ SP Zithromax D# 6 f/u sputum culture (fungal, and AFB x3). -daily CMP BAL to be scheduled Subjective Constitutional: Denies: no symptoms, fever, chills, fatigue, anorexia, drenching sweats, other Allergies: Coded Allergies: IODINE AND IODIDE CONTAINING PRODUC (Verified Allergy, Mild, itching and pruritis, 06/25/17) Uncoded Allergies: CONTRAST/DYE (Allergy, Intermediate, PRURITIS AND ITCHING, 06/25/17) Subjective SOB + , feels swollen Objective Vital Signs Last 24 Hour Vital Signs Date Time Temp Pulse Resp B/P (MAP) Pulse Ox O2 Delivery O2 Flow Rate FiO2 07/08/17 08:37 108/74 07/08/17 08:36 137 108/74 07/08/17 07:50 98.4 137 20 108/74 96 98.4 07/08/17 04:00 137 07/08/17 04:00 98.2 136 19 116/78 98 Nasal Cannula 4.0 98.2 07/08/17 02:36 97.3 136 21 120/85 100 Nasal Cannula 4.0 97.3 07/08/17 00:00 97.3 136 21 120/85 100 4.0 97.3 07/08/17 00:00 124 07/07/17 21:21 118 137/86 07/07/17 20:36 99.9 118 20 137/86 98 Nasal Cannula 4.0 99.9 07/07/17 20:00 115 07/07/17 19:51 99.5 07/07/17 19:04 Nasal Cannula 3.5 07/07/17 18:40 99.5 07/07/17 18:39 132/84 07/07/17 18:30 98.9 85 20 132/84 Nasal Cannula 3.5 98.9 07/07/17 18:18 100 20 Nasal Cannula 3.0 32 07/07/17 18:17 Nasal Cannula 3.0 32 07/07/17 18:16 93 Nasal Cannula 3.0 32 07/07/17 16:43 116 07/07/17 16:20 113 07/07/17 16:17 99.5 69 20 125/66 98 Nasal Cannula 99.5 07/07/17 15:00 Nasal Cannula 3.5 07/07/17 15:00 99.5 20 103/54 Nasal Cannula 3.5 99.5 07/07/17 14:37 132 123/88 07/07/17 14:30 132 123/88 07/07/17 14:30 97.9 07/07/17 13:59 123/88 07/07/17 12:16 97.9 07/07/17 12:00 97.9 103 20 123/88 94 Nasal Cannula 97.9 Height (Feet): 5 Height (Inches): 7.00 Weight (Pounds): 237 HEENT: atraumatic Respiratory/Chest: no respiratory distress Cardiovascular: regular rhythm Abdomen: non distended Laboratory Tests Test 07/08/17 05:30 White Blood Count 6.5 K/UL (4.8-10.8) Red Blood Count 3.11 M/UL (4.70-6.10) L Hemoglobin 9.7 G/DL (14.2-18.0) L Hematocrit 32.3 % (42.0-52.0) L Mean Corpuscular Volume 104 FL (80-99) H Mean Corpuscular Hemoglobin 31.3 PG (27.0-31.0) H Mean Corpuscular Hemoglobin Concent 30.1 G/DL (32.0-36.0) L Red Cell Distribution Width 20.1 % (11.6-14.8) H Platelet Count 78 K/UL (150-450) L Mean Platelet Volume 8.1 FL (6.5-10.1) Neutrophils (%) (Auto) % (45.0-75.0) Lymphocytes (%) (Auto) % (20.0-45.0) Monocytes (%) (Auto) % (1.0-10.0) Eosinophils (%) (Auto) % (0.0-3.0) Basophils (%) (Auto) % (0.0-2.0) Differential Total Cells Counted 100 Neutrophils % (Manual) 38 % (45-75) L Lymphocytes % (Manual) 33 % (20-45) Monocytes % (Manual) 20 % (1-10) H Eosinophils % (Manual) 9 % (0-3) H Basophils % (Manual) 0 % (0-2) Band Neutrophils 0 % (0-8) Platelet Estimate Decreased L Platelet Morphology Normal Polychromasia 2+ Hypochromasia 1+ Anisocytosis 2+ Macrocytosis 1+ Sodium Level 138 MMOL/L (136-145) Potassium Level 4.6 MMOL/L (3.5-5.1) Chloride Level 97 MMOL/L (98-107) L Carbon Dioxide Level 35 MMOL/L (21-32) H Anion Gap 6 mmol/L (5-15) Blood Urea Nitrogen 47 mg/dL (7-18) H Creatinine 10.8 MG/DL (0.55-1.30) H Estimat Glomerular Filtration Rate 5.9 mL/min (>60) Glucose Level 97 MG/DL (74-106) Calcium Level 9.2 MG/DL (8.5-10.1) Total Bilirubin 1.6 MG/DL (0.2-1.0) H Direct Bilirubin 1.0 MG/DL (0.0-0.3) H Aspartate Amino Transf (AST/SGOT) 37 U/L (15-37) Alanine Aminotransferase (ALT/SGPT) 17 U/L (12-78) Alkaline Phosphatase 121 U/L (46-116) H Troponin I 0.131 ng/mL (0.000-0.056) Pro-B-Type Natriuretic Peptide 16417 pg/mL (0-125) H Total Protein 7.2 G/DL (6.4-8.2) Albumin 2.6 G/DL (3.4-5.0) L Globulin 4.6 g/dL Albumin/Globulin Ratio 0.6 (1.0-2.7) L Current Medications Medications (Trade) Dose Ordered Sig/Jose Route PRN Reason Start Time Stop Time Status Last Admin Dose Admin Albuterol/ Ipratropium (Albuterol/ Ipratropium) 3 ml Q4H PRN HHN Shortness of Breath 07/06/17 04:30 07/10/17 08:29 Alprazolam (Xanax) 2 mg DAILYPRN PRN ORAL For Anxiety 07/06/17 08:45 07/09/17 08:44 07/07/17 13:12 Amikacin Protocol (Amikacin pharmacy to dose) 1 ea DAILY PRN MISC Per rx protocol 07/06/17 09:00 08/03/17 15:14 Amikacin Sulfate 1000 mg/Dextrose 114 ml @ 228 mls/hr FRI-FRI-FRI IV 07/07/17 21:00 07/11/17 20:59 07/07/17 21:21 Apixaban (Eliquis) 2.5 mg BID ORAL 07/06/17 18:00 08/05/17 17:59 07/08/17 08:37 Carisoprodol (Soma) 350 mg Q6H PRN ORAL MUSCLE SPASMS 07/06/17 07:00 07/14/17 18:59 07/08/17 01:53 Chlorhexidine Gluconate (Mireille-Hex 2%) 1 applic DAILY@2000 TOPIC 07/06/17 20:00 08/02/17 19:59 07/07/17 20:33 Clonidine HCl (Catapres Tab) 0.1 mg Q4H PRN ORAL bp over 160 syst 07/06/17 07:30 07/19/17 11:29 Dextrose (Dextrose 50%) STAT PRN IV Hypoglycemia 07/06/17 19:00 07/14/17 18:59 Diltiazem HCl (Cardizem) 10 mg Q1HR PRN IVP tachycardia 07/07/17 13:45 08/06/17 13:14 07/07/17 14:30 Docusate Sodium (Colace) 100 mg THREE TIMES A DAY ORAL 07/06/17 09:00 07/18/17 13:00 07/08/17 08:36 Ethambutol HCl (Myambutol) 1,000 mg 3XW ORAL 07/07/17 09:00 07/18/17 23:59 07/07/17 21:20 Hydromorphone HCl (Dilaudid) 1 mg Q4H PRN IVP Moderate Pain (Pain Scale 4-6) 07/06/17 07:15 07/09/17 11:14 Hydromorphone HCl (Dilaudid) 2 mg Q4H PRN IVP Severe Pain (Pain Scale 7-10) 07/06/17 07:15 07/09/17 11:14 07/08/17 11:34 Levofloxacin (Levaquin) 750 mg EVERY OTHER DAY@1999 ORAL 07/07/17 20:00 07/14/17 19:59 07/07/17 20:34 Lisinopril (Prinivil) 20 mg BID ORAL 07/06/17 09:00 07/19/17 18:00 07/07/17 18:39 Metoprolol Tartrate (Lopressor) 5 mg Q5MIN X 3 IVP 07/06/17 14:15 08/05/17 14:14 07/07/17 00:38 Metoprolol Tartrate (Lopressor) 50 mg Q12HR ORAL 07/07/17 21:00 08/06/17 20:59 07/08/17 08:36 Metronidazole (Flagyl) 500 mg Q8HR ORAL 07/08/17 09:30 07/15/17 09:29 07/08/17 10:58 Nitroglycerin (Ntg) 0.4 mg Q5M PRN SL Prn Chest Pain 07/06/17 04:00 07/19/17 11:29 Nitroglycerin (Ntg) 1 patch Q24H TDERMAL 07/06/17 11:30 07/19/17 11:30 07/07/17 13:59 Ondansetron HCl (Zofran) 4 mg Q6H PRN IVP Nausea & Vomiting 07/06/17 06:30 07/14/17 18:29 07/07/17 18:51 Pantoprazole (Protonix) 40 mg ACBREAKFAST ORAL 07/06/17 06:30 07/15/17 06:29 07/08/17 06:29 Polyethylene Glycol (Miralax) 17 gm DAILYPRN PRN ORAL Constipation 07/06/17 18:30 07/14/17 18:29 Promethazine HCl/ Codeine (Phenergan with Codeine) 5 ml Q4H PRN ORAL For Cough 07/06/17 06:30 07/22/17 10:30 07/08/17 01:56 Sevelamer Carbonate (Renvela) 2,400 mg THREE TIMES A DAY ORAL 07/06/17 09:00 07/16/17 18:44 07/08/17 08:35 Temazepam (Restoril) 15 mg HSPRN PRN ORAL Insomnia 07/06/17 21:00 07/09/17 20:59 07/07/17 22:57 Cristofer Antunez MD Jul 08, 2017 11:44
[2017-07-08] MEDS: ALPRAZolam 0.5mg tab ORAL PRN ×2 (11:46→21:02)
--- NOTE | 2017-07-08 13:51 | Cardiology Progress Note ---
Assessment/Plan Assessment/Plan pleuritic chest pain neg recent sig perfusion abn; systolic dysfunction on mild degree involving the septum cavitating lung lesion improved on recent ct esrd htn anemia icd hx edema afib thrombocytopenia tachy still will increase bb dose more may need to add Cardizem if remains uncontrolled plt improving but still low is on eliquis for stroke prevention venous duplex neg echo reviewed swma in septum (possible) as tech difficult study ef 45% dialysis per dr grimaldo may need more fluid removal afb smear neg ct noted icd interrogation requested Subjective Cardiovascular: Denies: chest pain, palpitations Respiratory: Reports: shortness of breath Gastrointestinal/Abdominal: Denies: abdominal pain Genitourinary: Reports: no symptoms Objective Last 24 Hour Vital Signs Date Time Temp Pulse Resp B/P (MAP) Pulse Ox O2 Delivery O2 Flow Rate FiO2 07/08/17 11:46 Nasal Cannula 4.0 36 07/08/17 11:45 92 Nasal Cannula 4.0 36 07/08/17 11:44 124 25 Nasal Cannula 4.0 36 07/08/17 11:37 97.5 127 19 134/92 98 Nasal Cannula 2.0 97.5 07/08/17 11:30 134/92 07/08/17 08:37 108/74 07/08/17 08:36 137 108/74 07/08/17 08:00 136 07/08/17 07:50 98.4 137 20 108/74 96 98.4 07/08/17 04:00 137 07/08/17 04:00 98.2 136 19 116/78 98 Nasal Cannula 4.0 98.2 07/08/17 02:36 97.3 136 21 120/85 100 Nasal Cannula 4.0 97.3 07/08/17 00:00 97.3 136 21 120/85 100 4.0 97.3 07/08/17 00:00 124 07/07/17 21:21 118 137/86 07/07/17 20:36 99.9 118 20 137/86 98 Nasal Cannula 4.0 99.9 07/07/17 20:00 115 07/07/17 19:51 99.5 07/07/17 19:04 Nasal Cannula 3.5 07/07/17 18:40 99.5 07/07/17 18:39 132/84 07/07/17 18:30 98.9 85 20 132/84 Nasal Cannula 3.5 98.9 07/07/17 18:18 100 20 Nasal Cannula 3.0 32 07/07/17 18:17 Nasal Cannula 3.0 32 07/07/17 18:16 93 Nasal Cannula 3.0 32 07/07/17 16:43 116 07/07/17 16:20 113 07/07/17 16:17 99.5 69 20 125/66 98 Nasal Cannula 99.5 07/07/17 15:00 Nasal Cannula 3.5 07/07/17 15:00 99.5 20 103/54 Nasal Cannula 3.5 99.5 07/07/17 14:37 132 123/88 07/07/17 14:30 132 123/88 07/07/17 14:30 97.9 07/07/17 13:59 123/88 General Appearance: other - drowsey but aroausable Neck: supple Cardiovascular: tachycardia, irregularly irregular Respiratory/Chest: lungs clear Abdomen: non tender, soft Extremities: moderate edema Intake and Output 07/07/17 07/08/17 19:00 07:00 Intake Total 300 ml Output Total 3000 ml 0 ml Balance -3000 ml 300 ml Other 300 ml Output Urine Total 0 ml Stool Total 0 ml Hemodialysis UF 3000 ml # Voids 1 Laboratory Tests Test 07/08/17 05:30 White Blood Count 6.5 K/UL (4.8-10.8) Red Blood Count 3.11 M/UL (4.70-6.10) L Hemoglobin 9.7 G/DL (14.2-18.0) L Hematocrit 32.3 % (42.0-52.0) L Mean Corpuscular Volume 104 FL (80-99) H Mean Corpuscular Hemoglobin 31.3 PG (27.0-31.0) H Mean Corpuscular Hemoglobin Concent 30.1 G/DL (32.0-36.0) L Red Cell Distribution Width 20.1 % (11.6-14.8) H Platelet Count 78 K/UL (150-450) L Mean Platelet Volume 8.1 FL (6.5-10.1) Neutrophils (%) (Auto) % (45.0-75.0) Lymphocytes (%) (Auto) % (20.0-45.0) Monocytes (%) (Auto) % (1.0-10.0) Eosinophils (%) (Auto) % (0.0-3.0) Basophils (%) (Auto) % (0.0-2.0) Differential Total Cells Counted 100 Neutrophils % (Manual) 38 % (45-75) L Lymphocytes % (Manual) 33 % (20-45) Monocytes % (Manual) 20 % (1-10) H Eosinophils % (Manual) 9 % (0-3) H Basophils % (Manual) 0 % (0-2) Band Neutrophils 0 % (0-8) Platelet Estimate Decreased L Platelet Morphology Normal Polychromasia 2+ Hypochromasia 1+ Anisocytosis 2+ Macrocytosis 1+ Sodium Level 138 MMOL/L (136-145) Potassium Level 4.6 MMOL/L (3.5-5.1) Chloride Level 97 MMOL/L (98-107) L Carbon Dioxide Level 35 MMOL/L (21-32) H Anion Gap 6 mmol/L (5-15) Blood Urea Nitrogen 47 mg/dL (7-18) H Creatinine 10.8 MG/DL (0.55-1.30) H Estimat Glomerular Filtration Rate 5.9 mL/min (>60) Glucose Level 97 MG/DL (74-106) Calcium Level 9.2 MG/DL (8.5-10.1) Total Bilirubin 1.6 MG/DL (0.2-1.0) H Direct Bilirubin 1.0 MG/DL (0.0-0.3) H Aspartate Amino Transf (AST/SGOT) 37 U/L (15-37) Alanine Aminotransferase (ALT/SGPT) 17 U/L (12-78) Alkaline Phosphatase 121 U/L (46-116) H Troponin I 0.131 ng/mL (0.000-0.056) Pro-B-Type Natriuretic Peptide 71577 pg/mL (0-125) H Total Protein 7.2 G/DL (6.4-8.2) Albumin 2.6 G/DL (3.4-5.0) L Globulin 4.6 g/dL Albumin/Globulin Ratio 0.6 (1.0-2.7) L PRECIOUS GARCIA Jul 08, 2017 13:51
[2017-07-08] MEDS ORDERED: Metoprolol Tartrate 50mg tab ORAL ONE (14:00)
[2017-07-08] MEDS ORDERED: NS 275ml ONE (14:07)
[2017-07-08] MEDS ORDERED: Tubing IV Secondary IV ONE (14:07)
--- NOTE | 2017-07-08 14:18 | Pulmonology Progress Note ---
Assessment/Plan Problems: (1) Respiratory failure (2) Pneumonia (3) Hemoptysis (4) Anemia (5) ESRD (end stage renal disease) on dialysis (6) HTN (hypertension) Assessment/Plan continue telemetry, if needed pt might go to ICU cardizem IV prn slowly improving cxr slighly better onNC clinically better HD by cooker helper prbc prn on anti TB meds wtih IV Amikacin all notes reviewed f/u wbc and cultures Subjective Interval Events: late note for 07/07. heart rate is uncontrolled Allergies: Coded Allergies: IODINE AND IODIDE CONTAINING PRODUC (Verified Allergy, Mild, itching and pruritis, 06/25/17) Uncoded Allergies: CONTRAST/DYE (Allergy, Intermediate, PRURITIS AND ITCHING, 06/25/17) Objective Last 24 Hour Vital Signs Date Time Temp Pulse Resp B/P (MAP) Pulse Ox O2 Delivery O2 Flow Rate FiO2 07/08/17 11:46 Nasal Cannula 4.0 36 07/08/17 11:45 92 Nasal Cannula 4.0 36 07/08/17 11:44 124 25 Nasal Cannula 4.0 36 07/08/17 11:37 97.5 127 19 134/92 98 Nasal Cannula 2.0 97.5 07/08/17 11:30 134/92 07/08/17 08:37 108/74 07/08/17 08:36 137 108/74 07/08/17 08:00 136 07/08/17 07:50 98.4 137 20 108/74 96 98.4 07/08/17 04:00 137 07/08/17 04:00 98.2 136 19 116/78 98 Nasal Cannula 4.0 98.2 07/08/17 02:36 97.3 136 21 120/85 100 Nasal Cannula 4.0 97.3 07/08/17 00:00 97.3 136 21 120/85 100 4.0 97.3 07/08/17 00:00 124 07/07/17 21:21 118 137/86 07/07/17 20:36 99.9 118 20 137/86 98 Nasal Cannula 4.0 99.9 07/07/17 20:00 115 07/07/17 19:51 99.5 07/07/17 19:04 Nasal Cannula 3.5 07/07/17 18:40 99.5 07/07/17 18:39 132/84 07/07/17 18:30 98.9 85 20 132/84 Nasal Cannula 3.5 98.9 07/07/17 18:18 100 20 Nasal Cannula 3.0 32 07/07/17 18:17 Nasal Cannula 3.0 32 07/07/17 18:16 93 Nasal Cannula 3.0 32 07/07/17 16:43 116 07/07/17 16:20 113 07/07/17 16:17 99.5 69 20 125/66 98 Nasal Cannula 99.5 07/07/17 15:00 Nasal Cannula 3.5 07/07/17 15:00 99.5 20 103/54 Nasal Cannula 3.5 99.5 07/07/17 14:37 132 123/88 07/07/17 14:30 132 123/88 07/07/17 14:30 97.9 Intake and Output 07/07/17 07/08/17 19:00 07:00 Intake Total 300 ml Output Total 3000 ml 0 ml Balance -3000 ml 300 ml Other 300 ml Output Urine Total 0 ml Stool Total 0 ml Hemodialysis UF 3000 ml # Voids 1 Objective General Appearance: WD/WN HEENT: normocephalic, atraumatic, anicteric Respiratory/Chest: loud rhonchi Cardiovascular: normal peripheral pulses, normal rate, regular rhythm Abdomen: normal bowel sounds, soft, non tender, no organomegaly Genitourinary: normal external genitalia Extremities: no cyanosis Skin: no rash, no lesions Neurologic/Psychiatric: compliance manager 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, no motor/sensory deficits Lymphatic: no neck adenopathy, no groin adenopathy Laboratory Tests 07/08/17 05:30: White Blood Count 6.5, Red Blood Count 3.11L, Hemoglobin 9.7L, Hematocrit 32.3L , Mean Corpuscular Volume 104H, Mean Corpuscular Hemoglobin 31.3H, Mean Corpuscular Hemoglobin Concent 30.1L, Red Cell Distribution Width 20.1H, Platelet Count 78L, Mean Platelet Volume 8.1, Neutrophils (%) (Auto) , Lymphocytes (%) (Auto) , Monocytes (%) (Auto) , Eosinophils (%) (Auto) , Basophils (%) (Auto) , Differential Total Cells Counted 100, Neutrophils % ( Manual) 38L, Lymphocytes % (Manual) 33, Monocytes % (Manual) 20H, Eosinophils % (Manual) 9H, Basophils % (Manual) 0, Band Neutrophils 0, Platelet Estimate DecreasedL, Platelet Morphology Normal, Polychromasia 2+, Hypochromasia 1+, Anisocytosis 2+, Macrocytosis 1+, Sodium Level 138, Potassium Level 4.6, Chloride Level 97L, Carbon Dioxide Level 35H, Anion Gap 6, Blood Urea Nitrogen 47H, Creatinine 10.8H, Estimat Glomerular Filtration Rate 5.9, Glucose Level 97 , Calcium Level 9.2, Total Bilirubin 1.6H, Direct Bilirubin 1.0H, Aspartate Amino Transf (AST/SGOT) 37, Alanine Aminotransferase (ALT/SGPT) 17, Alkaline Phosphatase 121H, Troponin I 0.131H, Pro-B-Type Natriuretic Peptide 72966T, Total Protein 7.2, Albumin 2.6L, Globulin 4.6, Albumin/Globulin Ratio 0.6L Current Medications Medications (Trade) Dose Ordered Sig/Jose Route PRN Reason Start Time Stop Time Status Last Admin Dose Admin Albuterol/ Ipratropium (Albuterol/ Ipratropium) 3 ml Q4H PRN HHN Shortness of Breath 07/06/17 04:30 07/10/17 08:29 Alprazolam (Xanax) 2 mg DAILYPRN PRN ORAL For Anxiety 07/06/17 08:45 07/09/17 08:44 07/08/17 11:46 Amikacin Protocol (Amikacin pharmacy to dose) 1 ea DAILY PRN MISC Per rx protocol 07/06/17 09:00 08/03/17 15:14 Amikacin Sulfate 1000 mg/Dextrose 114 ml @ 228 mls/hr FRI-FRI-FRI IV 07/07/17 21:00 07/11/17 20:59 07/07/17 21:21 Apixaban (Eliquis) 2.5 mg BID ORAL 07/06/17 18:00 08/05/17 17:59 07/08/17 08:37 Carisoprodol (Soma) 350 mg Q6H PRN ORAL MUSCLE SPASMS 07/06/17 07:00 07/14/17 18:59 07/08/17 01:53 Chlorhexidine Gluconate (Mireille-Hex 2%) 1 applic DAILY@2000 TOPIC 07/06/17 20:00 08/02/17 19:59 07/07/17 20:33 Clonidine HCl (Catapres Tab) 0.1 mg Q4H PRN ORAL bp over 160 syst 07/06/17 07:30 07/19/17 11:29 Dextrose (Dextrose 50%) STAT PRN IV Hypoglycemia 07/06/17 19:00 07/14/17 18:59 Diltiazem HCl (Cardizem) 10 mg Q1HR PRN IVP tachycardia 07/07/17 13:45 08/06/17 13:14 07/07/17 14:30 Docusate Sodium (Colace) 100 mg THREE TIMES A DAY ORAL 07/06/17 09:00 07/18/17 13:00 07/08/17 12:33 Ethambutol HCl (Myambutol) 1,000 mg 3XW ORAL 07/07/17 09:00 07/18/17 23:59 07/07/17 21:20 Hydromorphone HCl (Dilaudid) 1 mg Q4H PRN IVP Moderate Pain (Pain Scale 4-6) 07/06/17 07:15 07/09/17 11:14 Hydromorphone HCl (Dilaudid) 2 mg Q4H PRN IVP Severe Pain (Pain Scale 7-10) 07/06/17 07:15 07/09/17 11:14 07/08/17 11:34 Levofloxacin (Levaquin) 750 mg EVERY OTHER DAY@2000 ORAL 07/07/17 20:00 07/14/17 19:59 07/07/17 20:34 Lisinopril (Prinivil) 20 mg BID ORAL 07/06/17 09:00 07/19/17 18:00 07/07/17 18:39 Metoprolol Tartrate (Lopressor) 5 mg Q5MIN X 3 IVP 07/06/17 14:15 08/05/17 14:14 07/07/17 00:38 Metoprolol Tartrate (Lopressor) 75 mg Q12HR ORAL 07/08/17 21:00 08/07/17 20:59 Nitroglycerin (Ntg) 0.4 mg Q5M PRN SL Prn Chest Pain 07/06/17 04:00 07/19/17 11:29 Nitroglycerin (Ntg) 1 patch Q24H TDERMAL 07/06/17 11:30 07/19/17 11:30 07/07/17 13:59 Ondansetron HCl (Zofran) 4 mg Q6H PRN IVP Nausea & Vomiting 07/06/17 06:30 07/14/17 18:29 07/07/17 18:51 Pantoprazole (Protonix) 40 mg ACBREAKFAST ORAL 07/06/17 06:30 07/15/17 06:29 07/08/17 06:29 Piperacillin Sod/ Tazobactam Sod 2.25 gm/Dextrose 55 ml @ 110 mls/hr Q8HR IVPB 07/08/17 14:00 07/13/17 13:59 Polyethylene Glycol (Miralax) 17 gm DAILYPRN PRN ORAL Constipation 07/06/17 18:30 07/14/17 18:29 Promethazine HCl/ Codeine (Phenergan with Codeine) 5 ml Q4H PRN ORAL For Cough 07/06/17 06:30 07/22/17 10:30 07/08/17 01:56 Sevelamer Carbonate (Renvela) 2,400 mg THREE TIMES A DAY ORAL 07/06/17 09:00 07/16/17 18:44 07/08/17 12:33 Temazepam (Restoril) 15 mg HSPRN PRN ORAL Insomnia 07/06/17 21:00 07/09/17 20:59 07/07/17 22:57 Christine Morgan MD Jul 08, 2017 14:18
--- NOTE | 2017-07-08 14:19 | Pulmonology Progress Note ---
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 prn on anti TB meds wtih IV Amikacin all notes reviewed f/u wbc and cultures Subjective ROS Limited/Unobtainable: No Interval Events: heart rate controlled Allergies: Coded Allergies: IODINE AND IODIDE CONTAINING PRODUC (Verified Allergy, Mild, itching and pruritis, 06/25/17) Uncoded Allergies: CONTRAST/DYE (Allergy, Intermediate, PRURITIS AND ITCHING, 06/25/17) Objective Last 24 Hour Vital Signs Date Time Temp Pulse Resp B/P (MAP) Pulse Ox O2 Delivery O2 Flow Rate FiO2 07/08/17 11:46 Nasal Cannula 4.0 36 07/08/17 11:45 92 Nasal Cannula 4.0 36 07/08/17 11:44 124 25 Nasal Cannula 4.0 36 07/08/17 11:37 97.5 127 19 134/92 98 Nasal Cannula 2.0 97.5 07/08/17 11:30 134/92 07/08/17 08:37 108/74 07/08/17 08:36 137 108/74 07/08/17 08:00 136 07/08/17 07:50 98.4 137 20 108/74 96 98.4 07/08/17 04:00 137 07/08/17 04:00 98.2 136 19 116/78 98 Nasal Cannula 4.0 98.2 07/08/17 02:36 97.3 136 21 120/85 100 Nasal Cannula 4.0 97.3 07/08/17 00:00 97.3 136 21 120/85 100 4.0 97.3 07/08/17 00:00 124 07/07/17 21:21 118 137/86 07/07/17 20:36 99.9 118 20 137/86 98 Nasal Cannula 4.0 99.9 07/07/17 20:00 115 07/07/17 19:51 99.5 07/07/17 19:04 Nasal Cannula 3.5 07/07/17 18:40 99.5 07/07/17 18:39 132/84 07/07/17 18:30 98.9 85 20 132/84 Nasal Cannula 3.5 98.9 07/07/17 18:18 100 20 Nasal Cannula 3.0 32 07/07/17 18:17 Nasal Cannula 3.0 32 07/07/17 18:16 93 Nasal Cannula 3.0 32 07/07/17 16:43 116 07/07/17 16:20 113 07/07/17 16:17 99.5 69 20 125/66 98 Nasal Cannula 99.5 07/07/17 15:00 Nasal Cannula 3.5 07/07/17 15:00 99.5 20 103/54 Nasal Cannula 3.5 99.5 07/07/17 14:37 132 123/88 07/07/17 14:30 132 123/88 07/07/17 14:30 97.9 Intake and Output 07/07/17 07/08/17 19:00 07:00 Intake Total 300 ml Output Total 3000 ml 0 ml Balance -3000 ml 300 ml Other 300 ml Output Urine Total 0 ml Stool Total 0 ml Hemodialysis UF 3000 ml # Voids 1 Objective General Appearance: WD/WN HEENT: normocephalic, atraumatic, anicteric Respiratory/Chest: loud rhonchi Cardiovascular: normal peripheral pulses, normal rate, regular rhythm Abdomen: normal bowel sounds, soft, non tender, no organomegaly Genitourinary: normal external genitalia Extremities: no cyanosis Skin: no rash, no lesions Neurologic/Psychiatric: lump receiver 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, no motor/sensory deficits Lymphatic: no neck adenopathy, no groin adenopathy Laboratory Tests 07/08/17 05:30: White Blood Count 6.5, Red Blood Count 3.11L, Hemoglobin 9.7L, Hematocrit 32.3L , Mean Corpuscular Volume 104H, Mean Corpuscular Hemoglobin 31.3H, Mean Corpuscular Hemoglobin Concent 30.1L, Red Cell Distribution Width 20.1H, Platelet Count 78L, Mean Platelet Volume 8.1, Neutrophils (%) (Auto) , Lymphocytes (%) (Auto) , Monocytes (%) (Auto) , Eosinophils (%) (Auto) , Basophils (%) (Auto) , Differential Total Cells Counted 100, Neutrophils % ( Manual) 38L, Lymphocytes % (Manual) 33, Monocytes % (Manual) 20H, Eosinophils % (Manual) 9H, Basophils % (Manual) 0, Band Neutrophils 0, Platelet Estimate DecreasedL, Platelet Morphology Normal, Polychromasia 2+, Hypochromasia 1+, Anisocytosis 2+, Macrocytosis 1+, Sodium Level 138, Potassium Level 4.6, Chloride Level 97L, Carbon Dioxide Level 35H, Anion Gap 6, Blood Urea Nitrogen 47H, Creatinine 10.8H, Estimat Glomerular Filtration Rate 5.9, Glucose Level 97 , Calcium Level 9.2, Total Bilirubin 1.6H, Direct Bilirubin 1.0H, Aspartate Amino Transf (AST/SGOT) 37, Alanine Aminotransferase (ALT/SGPT) 17, Alkaline Phosphatase 121H, Troponin I 0.131H, Pro-B-Type Natriuretic Peptide 02056W, Total Protein 7.2, Albumin 2.6L, Globulin 4.6, Albumin/Globulin Ratio 0.6L Current Medications Medications (Trade) Dose Ordered Sig/Jose Route PRN Reason Start Time Stop Time Status Last Admin Dose Admin Albuterol/ Ipratropium (Albuterol/ Ipratropium) 3 ml Q4H PRN HHN Shortness of Breath 07/06/17 04:30 07/10/17 08:29 Alprazolam (Xanax) 2 mg DAILYPRN PRN ORAL For Anxiety 07/06/17 08:45 07/09/17 08:44 07/08/17 11:46 Amikacin Protocol (Amikacin pharmacy to dose) 1 ea DAILY PRN MISC Per rx protocol 07/06/17 09:00 08/03/17 15:14 Amikacin Sulfate 1000 mg/Dextrose 114 ml @ 228 mls/hr FRI-WED-FRI IV 07/07/17 21:00 07/11/17 20:59 07/07/17 21:21 Apixaban (Eliquis) 2.5 mg BID ORAL 07/06/17 18:00 08/05/17 17:59 07/08/17 08:37 Carisoprodol (Soma) 350 mg Q6H PRN ORAL MUSCLE SPASMS 07/06/17 07:00 07/14/17 18:59 07/08/17 01:53 Chlorhexidine Gluconate (Mireille-Hex 2%) 1 applic DAILY@2000 TOPIC 07/06/17 20:00 08/02/17 19:59 07/07/17 20:33 Clonidine HCl (Catapres Tab) 0.1 mg Q4H PRN ORAL bp over 160 syst 07/06/17 07:30 07/19/17 11:29 Dextrose (Dextrose 50%) STAT PRN IV Hypoglycemia 07/06/17 19:00 07/14/17 18:59 Diltiazem HCl (Cardizem) 10 mg Q1HR PRN IVP tachycardia 07/07/17 13:45 08/06/17 13:14 07/07/17 14:30 Docusate Sodium (Colace) 100 mg THREE TIMES A DAY ORAL 07/06/17 09:00 07/18/17 13:00 07/08/17 12:33 Ethambutol HCl (Myambutol) 1,000 mg 3XW ORAL 07/07/17 09:00 07/18/17 23:59 07/07/17 21:20 Hydromorphone HCl (Dilaudid) 1 mg Q4H PRN IVP Moderate Pain (Pain Scale 4-6) 07/06/17 07:15 07/09/17 11:14 Hydromorphone HCl (Dilaudid) 2 mg Q4H PRN IVP Severe Pain (Pain Scale 7-10) 07/06/17 07:15 07/09/17 11:14 07/08/17 11:34 Levofloxacin (Levaquin) 750 mg EVERY OTHER DAY@2000 ORAL 07/07/17 20:00 07/14/17 19:59 07/07/17 20:34 Lisinopril (Prinivil) 20 mg BID ORAL 07/06/17 09:00 07/19/17 18:00 07/07/17 18:39 Metoprolol Tartrate (Lopressor) 5 mg Q5MIN X 3 IVP 07/06/17 14:15 08/05/17 14:14 07/07/17 00:38 Metoprolol Tartrate (Lopressor) 75 mg Q12HR ORAL 07/08/17 21:00 08/07/17 20:59 Nitroglycerin (Ntg) 0.4 mg Q5M PRN SL Prn Chest Pain 07/06/17 04:00 07/19/17 11:29 Nitroglycerin (Ntg) 1 patch Q24H TDERMAL 07/06/17 11:30 07/19/17 11:30 07/07/17 13:59 Ondansetron HCl (Zofran) 4 mg Q6H PRN IVP Nausea & Vomiting 07/06/17 06:30 07/14/17 18:29 07/07/17 18:51 Pantoprazole (Protonix) 40 mg ACBREAKFAST ORAL 07/06/17 06:30 07/15/17 06:29 07/08/17 06:29 Piperacillin Sod/ Tazobactam Sod 2.25 gm/Dextrose 55 ml @ 110 mls/hr Q8HR IVPB 07/08/17 14:00 07/13/17 13:59 Polyethylene Glycol (Miralax) 17 gm DAILYPRN PRN ORAL Constipation 07/06/17 18:30 07/14/17 18:29 Promethazine HCl/ Codeine (Phenergan with Codeine) 5 ml Q4H PRN ORAL For Cough 07/06/17 06:30 07/22/17 10:30 07/08/17 01:56 Sevelamer Carbonate (Renvela) 2,400 mg THREE TIMES A DAY ORAL 07/06/17 09:00 07/16/17 18:44 07/08/17 12:33 Temazepam (Restoril) 15 mg HSPRN PRN ORAL Insomnia 07/06/17 21:00 07/09/17 20:59 07/07/17 22:57 Christine Morgan MD Jul 08, 2017 14:19
[2017-07-08] MEDS: Piperacillin/Tazobactam 2.25 GM in D5W 55 ML IVPB SCH ×2 (14:26→21:50)
--- NOTE | 2017-07-08 15:17 | Nephrology Progress Note ---
Assessment/Plan Problem List: (1) ESRD (end stage renal disease) on dialysis (2) Shortness of breath (3) Anemia Assessment worsenning Anemia ESRD , missed HD , admitted with high K and pulmonary edema Acute respiratory distress due to volume overload elevated troponin r/o ACS h/o COPD ? exacerbation HTN urgency Cardiomyopathy L AICD anemia of chronic kidney disease Hx of CVA Plan Plan: Low H&H - consider transfusion HD next 4/4 Transfused Phos binders BP meds adjustment Optimize cardiac status per orders Subjective ROS Limited/Unobtainable: No Constitutional: Reports: malaise Objective Objective Last 24 Hour Vital Signs Date Time Temp Pulse Resp B/P (MAP) Pulse Ox O2 Delivery O2 Flow Rate FiO2 07/08/17 14:26 124 134/92 07/08/17 12:00 121 07/08/17 11:46 Nasal Cannula 4.0 36 07/08/17 11:45 92 Nasal Cannula 4.0 36 07/08/17 11:44 124 25 Nasal Cannula 4.0 36 07/08/17 11:37 97.5 127 19 134/92 98 Nasal Cannula 2.0 97.5 07/08/17 11:30 134/92 07/08/17 08:37 108/74 07/08/17 08:36 137 108/74 07/08/17 08:00 136 07/08/17 07:50 98.4 137 20 108/74 96 98.4 07/08/17 04:00 137 07/08/17 04:00 98.2 136 19 116/78 98 Nasal Cannula 4.0 98.2 07/08/17 02:36 97.3 136 21 120/85 100 Nasal Cannula 4.0 97.3 07/08/17 00:00 97.3 136 21 120/85 100 4.0 97.3 07/08/17 00:00 124 07/07/17 21:21 118 137/86 07/07/17 20:36 99.9 118 20 137/86 98 Nasal Cannula 4.0 99.9 07/07/17 20:00 115 07/07/17 19:51 99.5 07/07/17 19:04 Nasal Cannula 3.5 07/07/17 18:40 99.5 07/07/17 18:39 132/84 07/07/17 18:30 98.9 85 20 132/84 Nasal Cannula 3.5 98.9 07/07/17 18:18 100 20 Nasal Cannula 3.0 32 07/07/17 18:17 Nasal Cannula 3.0 32 07/07/17 18:16 93 Nasal Cannula 3.0 32 07/07/17 16:43 116 07/07/17 16:20 113 07/07/17 16:17 99.5 69 20 125/66 98 Nasal Cannula 99.5 Intake and Output 07/07/17 07/08/17 19:00 07:00 Intake Total 300 ml Output Total 3000 ml 0 ml Balance -3000 ml 300 ml Other 300 ml Output Urine Total 0 ml Stool Total 0 ml Hemodialysis UF 3000 ml # Voids 1 Laboratory Tests 07/08/17 05:30: White Blood Count 6.5, Red Blood Count 3.11L, Hemoglobin 9.7L, Hematocrit 32.3L , Mean Corpuscular Volume 104H, Mean Corpuscular Hemoglobin 31.3H, Mean Corpuscular Hemoglobin Concent 30.1L, Red Cell Distribution Width 20.1H, Platelet Count 78L, Mean Platelet Volume 8.1, Neutrophils (%) (Auto) , Lymphocytes (%) (Auto) , Monocytes (%) (Auto) , Eosinophils (%) (Auto) , Basophils (%) (Auto) , Differential Total Cells Counted 100, Neutrophils % ( Manual) 38L, Lymphocytes % (Manual) 33, Monocytes % (Manual) 20H, Eosinophils % (Manual) 9H, Basophils % (Manual) 0, Band Neutrophils 0, Platelet Estimate DecreasedL, Platelet Morphology Normal, Polychromasia 2+, Hypochromasia 1+, Anisocytosis 2+, Macrocytosis 1+, Sodium Level 138, Potassium Level 4.6, Chloride Level 97L, Carbon Dioxide Level 35H, Anion Gap 6, Blood Urea Nitrogen 47H, Creatinine 10.8H, Estimat Glomerular Filtration Rate 5.9, Glucose Level 97 , Calcium Level 9.2, Total Bilirubin 1.6H, Direct Bilirubin 1.0H, Aspartate Amino Transf (AST/SGOT) 37, Alanine Aminotransferase (ALT/SGPT) 17, Alkaline Phosphatase 121H, Troponin I 0.131H, Pro-B-Type Natriuretic Peptide 12858R, Total Protein 7.2, Albumin 2.6L, Globulin 4.6, Albumin/Globulin Ratio 0.6L Height (Feet): 5 Height (Inches): 7.00 Weight (Pounds): 237 General Appearance: no apparent distress Cardiovascular: normal rate Respiratory/Chest: decreased breath sounds Abdomen: soft, distended Objective no change LIAM MONTELONGO Jul 08, 2017 15:17
[2017-07-08] MEDS: dilTIAZem HCl 25mg/5ml Inj IVP PRN (15:52)
--- NOTE | 2017-07-08 17:59 | Internal Med Progress Note ---
Subjective Date of Service: Jul 08, 2017 Physician Name Zoey Pires Attending Physician Chaitanya Weinstein MD Current Medications Medications (Trade) Dose Ordered Sig/Jose Route PRN Reason Start Time Stop Time Status Last Admin Dose Admin Albuterol/ Ipratropium (Albuterol/ Ipratropium) 3 ml Q4H PRN HHN Shortness of Breath 07/06/17 04:30 07/10/17 08:29 Alprazolam (Xanax) 2 mg DAILYPRN PRN ORAL For Anxiety 07/06/17 08:45 07/09/17 08:44 07/08/17 11:46 Amikacin Protocol (Amikacin pharmacy to dose) 1 ea DAILY PRN MISC Per rx protocol 07/06/17 09:00 08/03/17 15:14 Amikacin Sulfate 1000 mg/Dextrose 114 ml @ 228 mls/hr FRI-FRI-FRI IV 07/07/17 21:00 07/11/17 20:59 07/07/17 21:21 Apixaban (Eliquis) 2.5 mg BID ORAL 07/06/17 18:00 08/05/17 17:59 07/08/17 17:13 Carisoprodol (Soma) 350 mg Q6H PRN ORAL MUSCLE SPASMS 07/06/17 07:00 07/14/17 18:59 07/08/17 01:53 Chlorhexidine Gluconate (Mireille-Hex 2%) 1 applic DAILY@2000 TOPIC 07/06/17 20:00 08/02/17 19:59 07/07/17 20:33 Clonidine HCl (Catapres Tab) 0.1 mg Q4H PRN ORAL bp over 160 syst 07/06/17 07:30 07/19/17 11:29 Dextrose (Dextrose 50%) STAT PRN IV Hypoglycemia 07/06/17 19:00 07/14/17 18:59 Diltiazem HCl (Cardizem) 10 mg Q1H PRN IVP tachycardia 07/08/17 15:30 08/07/17 15:29 07/08/17 15:52 Docusate Sodium (Colace) 100 mg THREE TIMES A DAY ORAL 07/06/17 09:00 07/18/17 13:00 07/08/17 17:13 Ethambutol HCl (Myambutol) 1,000 mg 3XW ORAL 07/07/17 09:00 07/18/17 23:59 07/07/17 21:20 Hydromorphone HCl (Dilaudid) 1 mg Q4H PRN IVP Moderate Pain (Pain Scale 4-6) 07/06/17 07:15 07/09/17 11:14 Hydromorphone HCl (Dilaudid) 2 mg Q4H PRN IVP Severe Pain (Pain Scale 7-10) 07/06/17 07:15 07/09/17 11:14 07/08/17 15:34 Levofloxacin (Levaquin) 750 mg EVERY OTHER DAY@2000 ORAL 07/07/17 20:00 07/14/17 19:59 07/07/17 20:34 Lisinopril (Prinivil) 20 mg BID ORAL 07/06/17 09:00 07/19/17 18:00 07/07/17 18:39 Metoprolol Tartrate (Lopressor) 5 mg Q5MIN X 3 IVP 07/06/17 14:15 08/05/17 14:14 07/07/17 00:38 Metoprolol Tartrate (Lopressor) 75 mg Q12HR ORAL 07/08/17 21:00 08/07/17 20:59 Nitroglycerin (Ntg) 0.4 mg Q5M PRN SL Prn Chest Pain 07/06/17 04:00 07/19/17 11:29 Ondansetron HCl (Zofran) 4 mg Q6H PRN IVP Nausea & Vomiting 07/06/17 06:30 07/14/17 18:29 07/07/17 18:51 Pantoprazole (Protonix) 40 mg ACBREAKFAST ORAL 07/06/17 06:30 07/15/17 06:29 07/08/17 06:29 Piperacillin Sod/ Tazobactam Sod 2.25 gm/Dextrose 55 ml @ 110 mls/hr Q8HR IVPB 07/08/17 14:00 07/13/17 13:59 07/08/17 14:26 Polyethylene Glycol (Miralax) 17 gm DAILYPRN PRN ORAL Constipation 07/06/17 18:30 07/14/17 18:29 Promethazine HCl/ Codeine (Phenergan with Codeine) 5 ml Q4H PRN ORAL For Cough 07/06/17 06:30 07/22/17 10:30 07/08/17 01:56 Sevelamer Carbonate (Renvela) 2,400 mg THREE TIMES A DAY ORAL 07/06/17 09:00 07/16/17 18:44 07/08/17 17:13 Temazepam (Restoril) 15 mg HSPRN PRN ORAL Insomnia 07/06/17 21:00 07/09/17 20:59 07/07/17 22:57 Allergies: Coded Allergies: IODINE AND IODIDE CONTAINING PRODUC (Verified Allergy, Mild, itching and pruritis, 06/25/17) Uncoded Allergies: CONTRAST/DYE (Allergy, Intermediate, PRURITIS AND ITCHING, 06/25/17) ROS Limited/Unobtainable: No Constitutional: Reports: no symptoms HEENT: Reports: no symptoms Cardiovascular: Reports: no symptoms Respiratory: Reports: shortness of breath Gastrointestinal/Abdominal: Reports: diarrhea Genitourinary: Reports: no symptoms Neurologic/Psychiatric: Reports: no symptoms Subjective 57 YO M admitted with chest pain and shortness of breath. Now pneumonia and candelaria heart failure. Back on nasal canula. Cover for Int Med-Dr Weinstein. Now atrial flutter improving ventricular rate. C/O diarrhea Objective Last Vital Signs Date Time Temp Pulse Resp B/P (MAP) Pulse Ox O2 Delivery O2 Flow Rate FiO2 07/08/17 17:13 110/75 07/08/17 16:00 73 07/08/17 15:39 98.0 20 92 98.0 07/08/17 11:46 Nasal Cannula 4.0 36 Laboratory Tests Test 07/08/17 05:30 White Blood Count 6.5 K/UL (4.8-10.8) Red Blood Count 3.11 M/UL (4.70-6.10) L Hemoglobin 9.7 G/DL (14.2-18.0) L Hematocrit 32.3 % (42.0-52.0) L Mean Corpuscular Volume 104 FL (80-99) H Mean Corpuscular Hemoglobin 31.3 PG (27.0-31.0) H Mean Corpuscular Hemoglobin Concent 30.1 G/DL (32.0-36.0) L Red Cell Distribution Width 20.1 % (11.6-14.8) H Platelet Count 78 K/UL (150-450) L Mean Platelet Volume 8.1 FL (6.5-10.1) Neutrophils (%) (Auto) % (45.0-75.0) Lymphocytes (%) (Auto) % (20.0-45.0) Monocytes (%) (Auto) % (1.0-10.0) Eosinophils (%) (Auto) % (0.0-3.0) Basophils (%) (Auto) % (0.0-2.0) Differential Total Cells Counted 100 Neutrophils % (Manual) 38 % (45-75) L Lymphocytes % (Manual) 33 % (20-45) Monocytes % (Manual) 20 % (1-10) H Eosinophils % (Manual) 9 % (0-3) H Basophils % (Manual) 0 % (0-2) Band Neutrophils 0 % (0-8) Platelet Estimate Decreased L Platelet Morphology Normal Polychromasia 2+ Hypochromasia 1+ Anisocytosis 2+ Macrocytosis 1+ Sodium Level 138 MMOL/L (136-145) Potassium Level 4.6 MMOL/L (3.5-5.1) Chloride Level 97 MMOL/L (98-107) L Carbon Dioxide Level 35 MMOL/L (21-32) H Anion Gap 6 mmol/L (5-15) Blood Urea Nitrogen 47 mg/dL (7-18) H Creatinine 10.8 MG/DL (0.55-1.30) H Estimat Glomerular Filtration Rate 5.9 mL/min (>60) Glucose Level 97 MG/DL (74-106) Calcium Level 9.2 MG/DL (8.5-10.1) Total Bilirubin 1.6 MG/DL (0.2-1.0) H Direct Bilirubin 1.0 MG/DL (0.0-0.3) H Aspartate Amino Transf (AST/SGOT) 37 U/L (15-37) Alanine Aminotransferase (ALT/SGPT) 17 U/L (12-78) Alkaline Phosphatase 121 U/L (46-116) H Troponin I 0.131 ng/mL (0.000-0.056) Pro-B-Type Natriuretic Peptide 34115 pg/mL (0-125) H Total Protein 7.2 G/DL (6.4-8.2) Albumin 2.6 G/DL (3.4-5.0) L Globulin 4.6 g/dL Albumin/Globulin Ratio 0.6 (1.0-2.7) L Intake and Output 07/07/17 07/08/17 19:00 07:00 Intake Total 300 ml Output Total 3000 ml 0 ml Balance -3000 ml 300 ml Other 300 ml Output Urine Total 0 ml Stool Total 0 ml Hemodialysis UF 3000 ml # Voids 1 Objective General Appearance: WD/WN, alert, moderate distress EENT: PERRL/EOMI, normal ENT inspection Neck: non-tender, normal alignment, supple, normal inspection Cardiovascular: Tachycardia; normal peripheral pulses, normal rate, regular rhythm, no gallop/murmur, no JVD Respiratory/Chest: Nasal canula; respiratory distress, crackles/rales, rhonchi - bilaterally, expiratory wheezing Abdomen: normal bowel sounds, non tender, soft, no organomegaly, no mass Extremities: normal range of motion 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 (2) Respiratory failure Assessment & Plan: CHF and Pneumonia. Currently on nasal canula. See pulmonay note. (3) Pleuritic chest pain (4) Hemoptysis Assessment & Plan: Due to pneumonia (5) Pneumonia Assessment & Plan: Providencia and pseudamonas. RUL and cavitary. Concerning for TB. Await AFB cultures-see ID consult. Continue vanco and ethambutol per ID. Continue rocephin, micafungin, flagyl, amikacin, levaquin, and rifampin (6) Shortness of breath (7) ESRD (end stage renal disease) on dialysis Assessment & Plan: See nephrology note. Last Hemodialysis 07/04/17 per nephrology (8) Hyperkalemia Assessment & Plan: Due to renal failure. Hemodialysis 06/12/17 per nephrology (9) COPD (chronic obstructive pulmonary disease) (10) HTN (hypertension) Assessment & Plan: Continue coreg and lisinopril. (11) CHF (congestive heart failure) (12) Elevated troponin Assessment & Plan: ?due to renal failure? See cardiology note. (13) Intractable abdominal pain Assessment & Plan: See surgery note. Await CT abdomen (14) Conjunctivitis Assessment & Plan: start tobramycin (15) Diarrhea Assessment & Plan: Send stool for C. Diff Status: progressing Assessment/Plan Discharge planning - coordination with [facility] pending ZOEY PIRES Jul 08, 2017 17:59
--- NOTE | 2017-07-08 19:26 | General Progress Note ---
Assessment/Plan Assessment/Plan #. Thrombocytopenia. --> Hepatitis C ab ++, PCR - --> Monitor platelet level. Transfuse if platelet count <20k #. Left leg dvt --> acute onset, will need to review final duplex results --> begin on apixaban daily x 3 months, low h/h will need to monitor closely --> okay to change to different anticoagulant if renal clearance an issue --> If h/h downtrends below 7.5, consider ivc filter placement. --> Hemoglobin currently >7.5 #. Anemia secondary to chronic disease. --> Hemoglobin levels have remained above goal. No blood transfusion required at this time. --> S/P abd CAT scan revealing evidence of hepatic cirrhosis. --> Continue to closely monitor and trend cbc daily. --> Anemia workup completed and reviewed. Iron 42, TIBC 180, Ferritin 593, B12 876. --> Ferritin is >500, hgb goal is >7 --> Anemia w/u has been reviewed --> ++Occult blood. Consider GI Services and Recs. # Hepatosplenomegaly. Ascites. There is also evidence of generalized anasarca, with pleural fluid and generalized subcutaneous edema --> Abd pain improved on pain management #. Anemia of kidney disease --> HD as needed per nephrology team --> Monitor closely. --> Does not require iron at this time #. Generalized body ache related to fluid overload. #. End-stage renal disease, on hemodialysis as needed --> Monitor. S/P HD. #. Cardiomegaly. S/P Chest Xray --> Persistent but slightly decreased size of known right lung cavitary lesion. --> Persistent extensive interstitial and bilateral airspace opacities. --> Edema improved. Subjective Date patient seen: Jul 07, 2017 Constitutional: Denies: no symptoms, chills, diaphoresis, fever, malaise, weakness, other HEENT: Denies: no symptoms, eye pain, blurred vision, tearing, double vision, ear pain, ear discharge, nose pain, nose congestion, throat pain, throat swelling, mouth pain, mouth swelling, other Respiratory: Denies: no symptoms, cough, orthopnea, shortness of breath, SOB with excertion, SOB at rest, sputum, stridor, wheezing, other Gastrointestinal/Abdominal: Denies: no symptoms, abdomen distended, abdominal pain, black stools, tarry stools, blood in stool, constipated, diarrhea, difficulty swallowing, nausea, poor appetite, poor fluid intake, rectal bleeding , vomiting, other Genitourinary: Denies: no symptoms, burning, discharge, frequency, flank pain, hematuria, incontinence, pain, urgency, other Neurologic/Psychiatric: Denies: no symptoms, anxiety, depressed, emotional problems, headache, numbness, paresthesia, pre-existing deficit, seizure, tingling, tremors, weakness, other Hematologic/Lymphatic: Reports: anemia Allergies: Coded Allergies: IODINE AND IODIDE CONTAINING PRODUC (Verified Allergy, Mild, itching and pruritis, 06/25/17) Uncoded Allergies: CONTRAST/DYE (Allergy, Intermediate, PRURITIS AND ITCHING, 06/25/17) Subjective Poor prognosis. H/H stable. Low platelets. Objective Last 24 Hour Vital Signs Date Time Temp Pulse Resp B/P (MAP) Pulse Ox O2 Delivery O2 Flow Rate FiO2 07/08/17 17:13 110/75 07/08/17 16:00 73 07/08/17 15:52 97 110/75 07/08/17 15:39 98.0 97 20 110/75 92 98.0 07/08/17 14:26 124 134/92 07/08/17 12:00 121 07/08/17 11:46 Nasal Cannula 4.0 36 07/08/17 11:45 92 Nasal Cannula 4.0 36 07/08/17 11:44 124 25 Nasal Cannula 4.0 36 07/08/17 11:37 97.5 127 19 134/92 98 Nasal Cannula 2.0 97.5 07/08/17 11:30 134/92 07/08/17 08:37 108/74 07/08/17 08:36 137 108/74 07/08/17 08:00 136 07/08/17 07:50 98.4 137 20 108/74 96 98.4 07/08/17 04:00 137 07/08/17 04:00 98.2 136 19 116/78 98 Nasal Cannula 4.0 98.2 07/08/17 02:36 97.3 136 21 120/85 100 Nasal Cannula 4.0 97.3 07/08/17 00:00 97.3 136 21 120/85 100 4.0 97.3 07/08/17 00:00 124 07/07/17 21:21 118 137/86 07/07/17 20:36 99.9 118 20 137/86 98 Nasal Cannula 4.0 99.9 07/07/17 20:00 115 07/07/17 19:51 99.5 Intake and Output 07/07/17 07/08/17 19:00 07:00 Intake Total 300 ml Output Total 3000 ml 0 ml Balance -3000 ml 300 ml Other 300 ml Output Urine Total 0 ml Stool Total 0 ml Hemodialysis UF 3000 ml # Voids 1 Laboratory Tests 07/08/17 05:30: White Blood Count 6.5, Red Blood Count 3.11L, Hemoglobin 9.7L, Hematocrit 32.3L , Mean Corpuscular Volume 104H, Mean Corpuscular Hemoglobin 31.3H, Mean Corpuscular Hemoglobin Concent 30.1L, Red Cell Distribution Width 20.1H, Platelet Count 78L, Mean Platelet Volume 8.1, Neutrophils (%) (Auto) , Lymphocytes (%) (Auto) , Monocytes (%) (Auto) , Eosinophils (%) (Auto) , Basophils (%) (Auto) , Differential Total Cells Counted 100, Neutrophils % ( Manual) 38L, Lymphocytes % (Manual) 33, Monocytes % (Manual) 20H, Eosinophils % (Manual) 9H, Basophils % (Manual) 0, Band Neutrophils 0, Platelet Estimate DecreasedL, Platelet Morphology Normal, Polychromasia 2+, Hypochromasia 1+, Anisocytosis 2+, Macrocytosis 1+, Sodium Level 138, Potassium Level 4.6, Chloride Level 97L, Carbon Dioxide Level 35H, Anion Gap 6, Blood Urea Nitrogen 47H, Creatinine 10.8H, Estimat Glomerular Filtration Rate 5.9, Glucose Level 97 , Calcium Level 9.2, Total Bilirubin 1.6H, Direct Bilirubin 1.0H, Aspartate Amino Transf (AST/SGOT) 37, Alanine Aminotransferase (ALT/SGPT) 17, Alkaline Phosphatase 121H, Troponin I 0.131H, Pro-B-Type Natriuretic Peptide 60777E, Total Protein 7.2, Albumin 2.6L, Globulin 4.6, Albumin/Globulin Ratio 0.6L Height (Feet): 5 Height (Inches): 7.00 Weight (Pounds): 237 General Appearance: confused Respiratory/Chest: decreased breath sounds Abdomen: soft Irving Parker MD Jul 08, 2017 19:26
--- NOTE | 2017-07-08 21:28 | General Progress Note ---
Assessment/Plan Assessment/Plan Assessment - gallstones - abnormal LFT - suspect due to cirrhosis +/- meds, patient declines HIDA - Anemia, multifactorial - OB (+) Stool - patient declines EGD/Colon - ESRD/HD - DM - HTN - COPD - Cavitary lung disease - abnormal GB ultrasound - declines HIDA - Thrombocytopenia - cirrhotic appearing liver on CT - Hepatitis C Ab (+)/ PCR (-) - Poor prognosis Recommendations - PO as tolerated - follow symptoms and exam - monitor LFT - avoid hepatotoxic meds - PRN tylenol d/c'd - abx per ID - transfuse PRN - Acid blockade - current meds reviewed with pharm D - no suspect hepatotoxic meds - ? recent elevation due to 10 d Rifampin (now off) Subjective Allergies: Coded Allergies: IODINE AND IODIDE CONTAINING PRODUC (Verified Allergy, Mild, itching and pruritis, 06/25/17) Uncoded Allergies: CONTRAST/DYE (Allergy, Intermediate, PRURITIS AND ITCHING, 06/25/17) Subjective above noted d/w RN tolerating PO no further N/V Objective Last 24 Hour Vital Signs Date Time Temp Pulse Resp B/P (MAP) Pulse Ox O2 Delivery O2 Flow Rate FiO2 07/08/17 19:30 Nasal Cannula 3.0 32 07/08/17 19:30 92 Nasal Cannula 3.0 32 07/08/17 19:30 94 18 Nasal Cannula 3.0 32 07/08/17 17:13 110/75 07/08/17 16:00 73 07/08/17 15:52 97 110/75 07/08/17 15:39 98.0 97 20 110/75 92 98.0 07/08/17 14:26 124 134/92 07/08/17 12:00 121 07/08/17 11:46 Nasal Cannula 4.0 36 07/08/17 11:45 92 Nasal Cannula 4.0 36 07/08/17 11:44 124 25 Nasal Cannula 4.0 36 07/08/17 11:37 97.5 127 19 134/92 98 Nasal Cannula 2.0 97.5 07/08/17 11:30 134/92 07/08/17 08:37 108/74 07/08/17 08:36 137 108/74 07/08/17 08:00 136 07/08/17 07:50 98.4 137 20 108/74 96 98.4 07/08/17 04:00 137 07/08/17 04:00 98.2 136 19 116/78 98 Nasal Cannula 4.0 98.2 07/08/17 02:36 97.3 136 21 120/85 100 Nasal Cannula 4.0 97.3 07/08/17 00:00 97.3 136 21 120/85 100 4.0 97.3 07/08/17 00:00 124 Intake and Output 07/07/17 07/08/17 19:00 07:00 Intake Total 300 ml Output Total 3000 ml 0 ml Balance -3000 ml 300 ml Other 300 ml Output Urine Total 0 ml Stool Total 0 ml Hemodialysis UF 3000 ml # Voids 1 Laboratory Tests 07/08/17 05:30: White Blood Count 6.5, Red Blood Count 3.11L, Hemoglobin 9.7L, Hematocrit 32.3L , Mean Corpuscular Volume 104H, Mean Corpuscular Hemoglobin 31.3H, Mean Corpuscular Hemoglobin Concent 30.1L, Red Cell Distribution Width 20.1H, Platelet Count 78L, Mean Platelet Volume 8.1, Neutrophils (%) (Auto) , Lymphocytes (%) (Auto) , Monocytes (%) (Auto) , Eosinophils (%) (Auto) , Basophils (%) (Auto) , Differential Total Cells Counted 100, Neutrophils % ( Manual) 38L, Lymphocytes % (Manual) 33, Monocytes % (Manual) 20H, Eosinophils % (Manual) 9H, Basophils % (Manual) 0, Band Neutrophils 0, Platelet Estimate DecreasedL, Platelet Morphology Normal, Polychromasia 2+, Hypochromasia 1+, Anisocytosis 2+, Macrocytosis 1+, Sodium Level 138, Potassium Level 4.6, Chloride Level 97L, Carbon Dioxide Level 35H, Anion Gap 6, Blood Urea Nitrogen 47H, Creatinine 10.8H, Estimat Glomerular Filtration Rate 5.9, Glucose Level 97 , Calcium Level 9.2, Total Bilirubin 1.6H, Direct Bilirubin 1.0H, Aspartate Amino Transf (AST/SGOT) 37, Alanine Aminotransferase (ALT/SGPT) 17, Alkaline Phosphatase 121H, Troponin I 0.131H, Pro-B-Type Natriuretic Peptide 21551Q, Total Protein 7.2, Albumin 2.6L, Globulin 4.6, Albumin/Globulin Ratio 0.6L Height (Feet): 5 Height (Inches): 7.00 Weight (Pounds): 237 Objective WDWN AA Man NCAT supple CTA RRR Soft mildly distended, (+) improved RUQ TTP, (+) trunk edema (+) leg edema PERCY JOYNER Jul 08, 2017 21:28
[2017-07-08] MEDS: Dyna-Hex 2% Top Sol 2oz TOPIC SCH (21:49)
[2017-07-08] MEDS: Metoprolol 25mg tab ORAL SCH (21:50)
[2017-07-09] VITALS (7 sets, daily range): BP systolic 106–122; BP diastolic 66–79
[2017-07-09] MEDS: Piperacillin/Tazobactam 2.25 GM in D5W 55 ML IVPB SCH ×3 (06:29→22:03)
[2017-07-09 08:28] LABS: HEMATOCRIT 27.7 % (42.0-52.0); HEMOGLOBIN 8.3 G/DL (14.2-18.0); MEAN CORPUSCULAR VOLUME 104 FL (80-99); PLATELET COUNT 73 K/UL (150-450); RED BLOOD COUNT 2.67 M/UL (4.70-6.10); RED CELL DISTRIBUTION WIDTH 19.6 % (11.6-14.8); WHITE BLOOD COUNT 6.4 K/UL (4.8-10.8)
[2017-07-09] MEDS: Lisinopril 20mg tab ORAL SCH ×2 (09:00→17:25)
[2017-07-09] MEDS: Metoprolol 25mg tab ORAL SCH ×2 (09:00→21:00)
[2017-07-09 09:02] LABS: ALANINE AMINOTRANSFERASE 16 U/L (12-78); ALBUMIN 2.2 G/DL (3.4-5.0); ALBUMIN/GLOBULIN RATIO 0.5 (1.0-2.7); ALKALINE PHOSPHATASE 106 U/L (46-116); ANION GAP 8 mmol/L (5-15); ASPARTATE AMINO TRANSFERASE 34 U/L (15-37); BILIRUBIN,TOTAL 1.3 MG/DL (0.2-1.0); BLOOD UREA NITROGEN 57 mg/dL (7-18); CALCIUM 8.2 MG/DL (8.5-10.1); CARBON DIOXIDE 33 MMOL/L (21-32); CHLORIDE 97 MMOL/L (98-107); CREATININE 12.2 MG/DL (0.55-1.30); POTASSIUM 3.8 MMOL/L (3.5-5.1); SODIUM 138 MMOL/L (136-145)
[2017-07-09] MEDS: Docusate 100mg cap ORAL SCH ×3 (09:08→17:53)
[2017-07-09 09:09] LABS: BILIRUBIN,DIRECT 0.7 MG/DL (0.0-0.3)
[2017-07-09] MEDS: Eliquis 2.5mg tablet ORAL SCH ×2 (09:10→17:44)
--- NOTE | 2017-07-09 10:46 | Infectious Diseases Prog Note ---
Assessment/Plan Assessment/Plan Cavitary PNA. SCx: Neg ( m/l necrotizing Pneum, vs aerobic abscess, doubt TB or fungal ) ; improving -CT chest 06/25: Since the prior study of 06/15/2017, and. From further reduction in size of previously demonstrated thick walled right upper lobe cavitary mass. This was previously thought to most likely represent a cavitary inflammatory mass, and the interim reduction in size certainly supports that. Much less likely a cavitary neoplasm, but follow-up to resolution is recommended. Markedly improved parenchymal disease bilaterally, since the previous study. Nonetheless , extensive atelectasis and groundglass consolidation persists. Persistent small right pleural effusion, smaller than on the prior study. Resolved left pleural effusion 6 mm nodular opacity in the right upper lobe, not evident previously but likely obscured by surrounding consolidated lung parenchyma. This should be followed up in 6 months to one year depending on results of interim follow-up exams -CXR 06/21: Persistent but slightly decreased size of known right lung cavitary lesion. Persistent extensive interstitial and bilateral airspace opacities. -sp cx 06/05, 06/06 normal resp jordin; repeat sp cx 06/18 PsA (singh S) + Providencia stuarti (S Ceftriaxone, R Cipro) (likely superinfection/HCAP) Rsp status improved but on 06/[address] his condition worsen T-SPOT :Neg AFB x 3 : Neg MTB PCR x2 : neg cryptococcus Ag, Histoplams mycelial Ab , Blastomyces ab : neg ; histoplasma yeast ab (not able to be done due to anticomplementary activity) -Cocci, Asp ag p -Fungitell + 144 (?aspergillosis vs false positive) 06/21 Xray : improvement of cavity CT chest 06/15: Slightly smaller (6 cm diameter ) but mostly unchanged cavitary lesion in the right lung, previously thought to represent a cavitating inflammatory process. Lung abscess is certainly a possibility. Fairly extensive bilateral pulmonary parenchymal consolidation, slightly increased from previous exam of 06/05/2017. Likely a combination of pulmonary edema and pneumonia. Small right and trace left pleural effusion, new/increased from the previous study. CT 06/05: 7.8 x 5.3 x 6.6 cm dense opacity in the posterior inferior right upper lobe with a central cavitation. Chest x-ray : right mid lung infiltrate, possible cavitation Rule out tuberculosis, fungal infection, or necrotizing pneumonia. CRP 14 Influenza negative Coccidioidal ,Galactomannan : NEG ( PER LAB ) Transaminitis , improving after stopping rifampin 2/2 Hep C cirrhosis- no active Hep C as VL not detected -CT abd/p: Evidence of hepatic cirrhosis. Hepatosplenomegaly. evidence of generalized anasarca, with pleural fluid and generalized subcutaneous edema. Cholelithiasis, also previously reported. Possible diverticulosis. No evidence of diverticulitis US Abd : Cholelithiasis. There is gallbladder wall thickening, likely related to hemodynamic abnormalities Splenomegaly. Evidence of hepatic cirrhosis HIV : NEG Hep Panel B neg , C Ab : +ve , VL not detected leukopenia and TCP 2/2 splenomegaly Seizure disorder History of CVA History of pacemaker placement Hyperlipidemia Hypertension COPD/asthma End-stage renal disease, on hemodialysis Diabetes Anxiety Anemia Echo, ejection fraction 45% to 50%. PLAN: - cont Zoysn d# 2 ( pt SOB and CXR worsen , better coverage of anaerobes, PSA and Providencia ); abx d# 35/ 42, then will switch to oral Clinda till resolution of of abscess Continue empiric Ethambutol and Levaquin, Amikacin ( empiric TB AB Rx d# 25 as per TB control request ) 07/07 SP Dc Flagyl 07/06 SP Voriconazole ( low antonio for fungal infection , and in the setting of cirrhosis ) 07/05 SP Micafungin abx d#20 , Rifampin 600mg qd #10 07/01 SP Ceftriaxone #10 06/28 SP Amikacin #15 06/25 SP PO Voriconazole #3 06/20 SP Liposomal Ampho #8 06/17 SP IV Vancomycin #14, Meropenem #5 06/13 SP Zosyn d# 10 06/08 SP Zithromax D# 6 f/u sputum culture (fungal, and AFB x3). - CMP BAL to be scheduled Subjective Allergies: Coded Allergies: IODINE AND IODIDE CONTAINING PRODUC (Verified Allergy, Mild, itching and pruritis, 06/25/17) Uncoded Allergies: CONTRAST/DYE (Allergy, Intermediate, PRURITIS AND ITCHING, 06/25/17) Subjective SOB + , feels swollen Objective Vital Signs Last 24 Hour Vital Signs Date Time Temp Pulse Resp B/P (MAP) Pulse Ox O2 Delivery O2 Flow Rate FiO2 07/09/17 08:00 97.9 114 20 117/71 95 97.9 07/09/17 07:19 95 Nasal Cannula 2.0 28 07/09/17 07:19 Nasal Cannula 2.0 28 07/09/17 07:19 115 24 Nasal Cannula 2.0 28 07/09/17 04:27 115 07/09/17 04:00 97.5 122 20 115/69 97 Nasal Cannula 2.0 97.5 07/09/17 00:00 97.9 134 24 106/72 96 97.9 07/08/17 23:59 134 07/08/17 21:50 81 118/66 07/08/17 20:00 107 07/08/17 20:00 98.6 81 24 118/66 96 98.6 07/08/17 19:30 Nasal Cannula 3.0 32 07/08/17 19:30 92 Nasal Cannula 3.0 32 07/08/17 19:30 94 18 Nasal Cannula 3.0 32 07/08/17 17:13 110/75 07/08/17 16:00 73 07/08/17 15:52 97 110/75 07/08/17 15:39 98.0 97 20 110/75 92 98.0 07/08/17 14:26 124 134/92 07/08/17 12:00 121 07/08/17 11:46 Nasal Cannula 4.0 36 07/08/17 11:45 92 Nasal Cannula 4.0 36 07/08/17 11:44 124 25 Nasal Cannula 4.0 36 07/08/17 11:37 97.5 127 19 134/92 98 Nasal Cannula 2.0 97.5 07/08/17 11:30 134/92 Height (Feet): 5 Height (Inches): 7.00 Weight (Pounds): 241 HEENT: anicteric Respiratory/Chest: normal breath sounds Cardiovascular: regularly irregular Abdomen: non distended Laboratory Tests Test 07/09/17 06:30 White Blood Count 6.4 K/UL (4.8-10.8) Red Blood Count 2.67 M/UL (4.70-6.10) L Hemoglobin 8.3 G/DL (14.2-18.0) L Hematocrit 27.7 % (42.0-52.0) L Mean Corpuscular Volume 104 FL (80-99) H Mean Corpuscular Hemoglobin 31.2 PG (27.0-31.0) H Mean Corpuscular Hemoglobin Concent 30.1 G/DL (32.0-36.0) L Red Cell Distribution Width 19.6 % (11.6-14.8) H Platelet Count 73 K/UL (150-450) L Mean Platelet Volume 8.0 FL (6.5-10.1) Neutrophils (%) (Auto) % (45.0-75.0) Lymphocytes (%) (Auto) % (20.0-45.0) Monocytes (%) (Auto) % (1.0-10.0) Eosinophils (%) (Auto) % (0.0-3.0) Basophils (%) (Auto) % (0.0-2.0) Differential Total Cells Counted 100 Neutrophils % (Manual) 41 % (45-75) L Lymphocytes % (Manual) 31 % (20-45) Monocytes % (Manual) 17 % (1-10) H Eosinophils % (Manual) 11 % (0-3) H Basophils % (Manual) 0 % (0-2) Band Neutrophils 0 % (0-8) Platelet Estimate Decreased L Platelet Morphology Normal Polychromasia 2+ Hypochromasia 1+ Anisocytosis 1+ Macrocytosis 1+ Sodium Level 138 MMOL/L (136-145) Potassium Level 3.8 MMOL/L (3.5-5.1) Chloride Level 97 MMOL/L (98-107) L Carbon Dioxide Level 33 MMOL/L (21-32) H Anion Gap 8 mmol/L (5-15) Blood Urea Nitrogen 57 mg/dL (7-18) H Creatinine 12.2 MG/DL (0.55-1.30) H Estimat Glomerular Filtration Rate 5.2 mL/min (>60) Glucose Level 134 MG/DL (74-106) H Calcium Level 8.2 MG/DL (8.5-10.1) L Total Bilirubin 1.3 MG/DL (0.2-1.0) H Direct Bilirubin 0.7 MG/DL (0.0-0.3) H Aspartate Amino Transf (AST/SGOT) 34 U/L (15-37) Alanine Aminotransferase (ALT/SGPT) 16 U/L (12-78) Alkaline Phosphatase 106 U/L (46-116) Total Protein 6.3 G/DL (6.4-8.2) L Albumin 2.2 G/DL (3.4-5.0) L Globulin 4.1 g/dL Albumin/Globulin Ratio 0.5 (1.0-2.7) L Current Medications Medications (Trade) Dose Ordered Sig/Jose Route PRN Reason Start Time Stop Time Status Last Admin Dose Admin Albuterol/ Ipratropium (Albuterol/ Ipratropium) 3 ml Q4H PRN HHN Shortness of Breath 07/06/17 04:30 07/10/17 08:29 Amikacin Protocol (Amikacin pharmacy to dose) 1 ea DAILY PRN MISC Per rx protocol 07/06/17 09:00 08/03/17 15:14 Amikacin Sulfate 1000 mg/Dextrose 114 ml @ 228 mls/hr FRI-FRI-FRI IV 07/07/17 21:00 07/11/17 20:59 07/07/17 21:21 Apixaban (Eliquis) 2.5 mg BID ORAL 07/06/17 18:00 08/05/17 17:59 07/09/17 09:10 Carisoprodol (Soma) 350 mg Q6H PRN ORAL MUSCLE SPASMS 07/06/17 07:00 07/14/17 18:59 07/08/17 01:53 Chlorhexidine Gluconate (Mireille-Hex 2%) 1 applic DAILY@2000 TOPIC 07/06/17 20:00 08/02/17 19:59 07/08/17 21:49 Clonidine HCl (Catapres Tab) 0.1 mg Q4H PRN ORAL bp over 160 syst 07/06/17 07:30 07/19/17 11:29 Dextrose (Dextrose 50%) 25 ml STAT PRN IV HYPOGLYCEMIA 07/09/17 08:30 08/08/17 08:29 Dextrose (Dextrose 50%) 50 ml STAT PRN IV Hypoglycemia 07/09/17 08:30 07/14/17 18:59 Diltiazem HCl (Cardizem) 10 mg Q1H PRN IVP tachycardia 07/08/17 15:30 08/07/17 15:29 07/08/17 15:52 Docusate Sodium (Colace) 100 mg THREE TIMES A DAY ORAL 07/06/17 09:00 07/18/17 13:00 07/09/17 09:08 Ethambutol HCl (Myambutol) 1,000 mg 3XW ORAL 07/07/17 09:00 07/18/17 23:59 07/09/17 09:09 Hydromorphone HCl (Dilaudid) 1 mg Q4H PRN IVP Moderate Pain (Pain Scale 4-6) 07/06/17 07:15 07/09/17 11:14 Hydromorphone HCl (Dilaudid) 2 mg Q4H PRN IVP Severe Pain (Pain Scale 7-10) 07/06/17 07:15 07/09/17 11:14 07/09/17 07:54 Levofloxacin (Levaquin) 750 mg EVERY OTHER DAY@1999 ORAL 07/07/17 20:00 07/14/17 19:59 07/07/17 20:34 Lisinopril (Prinivil) 20 mg BID ORAL 07/06/17 09:00 07/19/17 18:00 07/07/17 18:39 Metoprolol Tartrate (Lopressor) 5 mg Q5MIN X 3 IVP 07/06/17 14:15 08/05/17 14:14 07/07/17 00:38 Metoprolol Tartrate (Lopressor) 75 mg Q12HR ORAL 07/08/17 21:00 08/07/17 20:59 07/08/17 21:50 Nitroglycerin (Ntg) 0.4 mg Q5M PRN SL Prn Chest Pain 07/06/17 04:00 07/19/17 11:29 Ondansetron HCl (Zofran) 4 mg Q6H PRN IVP Nausea & Vomiting 07/06/17 06:30 07/14/17 18:29 07/08/17 18:21 Pantoprazole (Protonix) 40 mg ACBREAKFAST ORAL 07/06/17 06:30 07/15/17 06:29 07/09/17 06:55 Piperacillin Sod/ Tazobactam Sod 2.25 gm/Dextrose 55 ml @ 110 mls/hr Q8HR IVPB 07/08/17 14:00 07/13/17 13:59 07/09/17 06:29 Polyethylene Glycol (Miralax) 17 gm DAILYPRN PRN ORAL Constipation 07/06/17 18:30 07/14/17 18:29 Promethazine HCl/ Codeine (Phenergan with Codeine) 5 ml Q4H PRN ORAL For Cough 07/06/17 06:30 07/22/17 10:30 07/08/17 01:56 Sevelamer Carbonate (Renvela) 2,400 mg THREE TIMES A DAY ORAL 07/06/17 09:00 07/16/17 18:44 07/09/17 09:07 Temazepam (Restoril) 15 mg HSPRN PRN ORAL Insomnia 07/06/17 21:00 07/09/17 20:59 07/07/17 22:57 Cristofer Antunez MD Jul 09, 2017 10:46
--- NOTE | 2017-07-09 11:12 | Internal Med Progress Note ---
Subjective Date of Service: Jul 09, 2017 Physician Name Zeoy Pires Attending Physician Chaitanya Weinstein MD Current Medications Medications (Trade) Dose Ordered Sig/Jose Route PRN Reason Start Time Stop Time Status Last Admin Dose Admin Albuterol/ Ipratropium (Albuterol/ Ipratropium) 3 ml Q4H PRN HHN Shortness of Breath 07/06/17 04:30 07/10/17 08:29 Amikacin Protocol (Amikacin pharmacy to dose) 1 ea DAILY PRN MISC Per rx protocol 07/06/17 09:00 08/03/17 15:14 Amikacin Sulfate 1000 mg/Dextrose 114 ml @ 228 mls/hr FRI-FRI-FRI IV 07/07/17 21:00 07/11/17 20:59 07/07/17 21:21 Apixaban (Eliquis) 2.5 mg BID ORAL 07/06/17 18:00 08/05/17 17:59 07/09/17 09:10 Carisoprodol (Soma) 350 mg Q6H PRN ORAL MUSCLE SPASMS 07/06/17 07:00 07/14/17 18:59 07/08/17 01:53 Chlorhexidine Gluconate (Mireille-Hex 2%) 1 applic DAILY@2000 TOPIC 07/06/17 20:00 08/02/17 19:59 07/08/17 21:49 Clonidine HCl (Catapres Tab) 0.1 mg Q4H PRN ORAL bp over 160 syst 07/06/17 07:30 07/19/17 11:29 Dextrose (Dextrose 50%) 25 ml STAT PRN IV HYPOGLYCEMIA 07/09/17 08:30 08/08/17 08:29 Dextrose (Dextrose 50%) 50 ml STAT PRN IV Hypoglycemia 07/09/17 08:30 07/14/17 18:59 Diltiazem HCl (Cardizem) 10 mg Q1H PRN IVP tachycardia 07/08/17 15:30 08/07/17 15:29 07/08/17 15:52 Docusate Sodium (Colace) 100 mg THREE TIMES A DAY ORAL 07/06/17 09:00 07/18/17 13:00 07/09/17 09:08 Ethambutol HCl (Myambutol) 1,000 mg 3XW ORAL 07/07/17 09:00 07/18/17 23:59 07/09/17 09:09 Hydromorphone HCl (Dilaudid) 1 mg Q4H PRN IVP Moderate Pain (Pain Scale 4-6) 07/06/17 07:15 07/09/17 11:14 Hydromorphone HCl (Dilaudid) 2 mg Q4H PRN IVP Severe Pain (Pain Scale 7-10) 07/06/17 07:15 07/09/17 11:14 07/09/17 07:54 Levofloxacin (Levaquin) 750 mg EVERY OTHER DAY@2000 ORAL 07/07/17 20:00 07/14/17 19:59 07/07/17 20:34 Lisinopril (Prinivil) 20 mg BID ORAL 07/06/17 09:00 07/19/17 18:00 07/07/17 18:39 Metoprolol Tartrate (Lopressor) 5 mg Q5MIN X 3 IVP 07/06/17 14:15 08/05/17 14:14 07/07/17 00:38 Metoprolol Tartrate (Lopressor) 75 mg Q12HR ORAL 07/08/17 21:00 08/07/17 20:59 07/08/17 21:50 Nitroglycerin (Ntg) 0.4 mg Q5M PRN SL Prn Chest Pain 07/06/17 04:00 07/19/17 11:29 Ondansetron HCl (Zofran) 4 mg Q6H PRN IVP Nausea & Vomiting 07/06/17 06:30 07/14/17 18:29 07/08/17 18:21 Pantoprazole (Protonix) 40 mg ACBREAKFAST ORAL 07/06/17 06:30 07/15/17 06:29 07/09/17 06:55 Piperacillin Sod/ Tazobactam Sod 2.25 gm/Dextrose 55 ml @ 110 mls/hr Q8HR IVPB 07/08/17 14:00 07/13/17 13:59 07/09/17 06:29 Polyethylene Glycol (Miralax) 17 gm DAILYPRN PRN ORAL Constipation 07/06/17 18:30 07/14/17 18:29 Promethazine HCl/ Codeine (Phenergan with Codeine) 5 ml Q4H PRN ORAL For Cough 07/06/17 06:30 07/22/17 10:30 07/08/17 01:56 Sevelamer Carbonate (Renvela) 2,400 mg THREE TIMES A DAY ORAL 07/06/17 09:00 07/16/17 18:44 07/09/17 09:07 Temazepam (Restoril) 15 mg HSPRN PRN ORAL Insomnia 07/06/17 21:00 07/09/17 20:59 07/07/17 22:57 Allergies: Coded Allergies: IODINE AND IODIDE CONTAINING PRODUC (Verified Allergy, Mild, itching and pruritis, 06/25/17) Uncoded Allergies: CONTRAST/DYE (Allergy, Intermediate, PRURITIS AND ITCHING, 06/25/17) ROS Limited/Unobtainable: No Constitutional: Reports: no symptoms HEENT: Reports: no symptoms Cardiovascular: Reports: no symptoms Respiratory: Reports: shortness of breath Gastrointestinal/Abdominal: Reports: no symptoms Genitourinary: Reports: no symptoms Neurologic/Psychiatric: Reports: no symptoms Subjective 57 YO M admitted with chest pain and shortness of breath. Now pneumonia and candelaria heart failure. Back on nasal canula. Cover for Int Med-Dr Weinstein. Now atrial flutter improving ventricular rate. C/O diarrhea Objective Last Vital Signs Date Time Temp Pulse Resp B/P (MAP) Pulse Ox O2 Delivery O2 Flow Rate FiO2 07/09/17 08:00 97.9 114 20 117/71 95 97.9 07/09/17 07:19 Nasal Cannula 2.0 28 Laboratory Tests Test 07/09/17 06:30 White Blood Count 6.4 K/UL (4.8-10.8) Red Blood Count 2.67 M/UL (4.70-6.10) L Hemoglobin 8.3 G/DL (14.2-18.0) L Hematocrit 27.7 % (42.0-52.0) L Mean Corpuscular Volume 104 FL (80-99) H Mean Corpuscular Hemoglobin 31.2 PG (27.0-31.0) H Mean Corpuscular Hemoglobin Concent 30.1 G/DL (32.0-36.0) L Red Cell Distribution Width 19.6 % (11.6-14.8) H Platelet Count 73 K/UL (150-450) L Mean Platelet Volume 8.0 FL (6.5-10.1) Neutrophils (%) (Auto) % (45.0-75.0) Lymphocytes (%) (Auto) % (20.0-45.0) Monocytes (%) (Auto) % (1.0-10.0) Eosinophils (%) (Auto) % (0.0-3.0) Basophils (%) (Auto) % (0.0-2.0) Differential Total Cells Counted 100 Neutrophils % (Manual) 41 % (45-75) L Lymphocytes % (Manual) 31 % (20-45) Monocytes % (Manual) 17 % (1-10) H Eosinophils % (Manual) 11 % (0-3) H Basophils % (Manual) 0 % (0-2) Band Neutrophils 0 % (0-8) Platelet Estimate Decreased L Platelet Morphology Normal Polychromasia 2+ Hypochromasia 1+ Anisocytosis 1+ Macrocytosis 1+ Sodium Level 138 MMOL/L (136-145) Potassium Level 3.8 MMOL/L (3.5-5.1) Chloride Level 97 MMOL/L (98-107) L Carbon Dioxide Level 33 MMOL/L (21-32) H Anion Gap 8 mmol/L (5-15) Blood Urea Nitrogen 57 mg/dL (7-18) H Creatinine 12.2 MG/DL (0.55-1.30) H Estimat Glomerular Filtration Rate 5.2 mL/min (>60) Glucose Level 134 MG/DL (74-106) H Calcium Level 8.2 MG/DL (8.5-10.1) L Total Bilirubin 1.3 MG/DL (0.2-1.0) H Direct Bilirubin 0.7 MG/DL (0.0-0.3) H Aspartate Amino Transf (AST/SGOT) 34 U/L (15-37) Alanine Aminotransferase (ALT/SGPT) 16 U/L (12-78) Alkaline Phosphatase 106 U/L (46-116) Total Protein 6.3 G/DL (6.4-8.2) L Albumin 2.2 G/DL (3.4-5.0) L Globulin 4.1 g/dL Albumin/Globulin Ratio 0.5 (1.0-2.7) L Intake and Output 07/08/17 07/09/17 19:00 07:00 Intake Total 775 ml 400 ml Balance 775 ml 400 ml Intake Oral 720 ml 400 ml IV Total 55 ml # Bowel Movements 3 1 Objective General Appearance: WD/WN, alert, moderate distress EENT: PERRL/EOMI, normal ENT inspection Neck: non-tender, normal alignment, supple, normal inspection Cardiovascular: Tachycardia; normal peripheral pulses, normal rate, regular rhythm, no gallop/murmur, no JVD Respiratory/Chest: Nasal canula; respiratory distress, crackles/rales, rhonchi - bilaterally, expiratory wheezing Abdomen: normal bowel sounds, non tender, soft, no organomegaly, no mass Extremities: normal range of motion Neurologic: emergency dispatcher 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, no motor/sensory deficits Skin: normal pigmentation, warm/dry Assessment/Plan Problem List: (1) Atrial flutter with rapid ventricular response Assessment & Plan: D/C coreg; start metoprolol and IV diltiazem per cardiology consult. (2) Respiratory failure Assessment & Plan: CHF and Pneumonia. Currently on nasal canula. See pulmonay note. (3) Pleuritic chest pain (4) Hemoptysis Assessment & Plan: Due to pneumonia (5) Pneumonia Assessment & Plan: Providencia and pseudamonas. RUL and cavitary. Concerning for TB. Await AFB cultures-see ID consult. Continue vanco and ethambutol per ID. Continue rocephin, micafungin, flagyl, amikacin, levaquin, and rifampin (6) Shortness of breath (7) ESRD (end stage renal disease) on dialysis Assessment & Plan: See nephrology note. Next Hemodialysis 07/09/17 per nephrology (8) Hyperkalemia Assessment & Plan: Due to renal failure. Hemodialysis 06/12/17 per nephrology (9) COPD (chronic obstructive pulmonary disease) (10) HTN (hypertension) Assessment & Plan: Continue coreg and lisinopril. (11) CHF (congestive heart failure) (12) Elevated troponin Assessment & Plan: ?due to renal failure? See cardiology note. (13) Intractable abdominal pain Assessment & Plan: See surgery note. Await CT abdomen (14) Conjunctivitis Assessment & Plan: start tobramycin (15) Diarrhea Assessment & Plan: Send stool for C. Diff Status: progressing Assessment/Plan Discharge planning - coordination with [facility] pending ZOEY PIRES Jul 09, 2017 11:12
--- NOTE | 2017-07-09 12:17 | Nephrology Progress Note ---
Assessment/Plan Problem List: (1) ESRD (end stage renal disease) on dialysis (2) Shortness of breath (3) Anemia Assessment Anemia ESRD , missed HD on admission , admitted with high K and pulmonary edema Acute respiratory distress due to volume overload elevated troponin r/o ACS h/o COPD ? exacerbation HTN urgency Cardiomyopathy L AICD anemia of chronic kidney disease Hx of CVA Plan Plan: HD next 07/09 Transfused Phos binders BP meds adjustment Optimize cardiac status per orders Subjective ROS Limited/Unobtainable: No Constitutional: Reports: malaise Objective Objective Last 24 Hour Vital Signs Date Time Temp Pulse Resp B/P (MAP) Pulse Ox O2 Delivery O2 Flow Rate FiO2 07/09/17 08:00 97.9 114 20 117/71 95 97.9 07/09/17 07:19 95 Nasal Cannula 2.0 28 07/09/17 07:19 Nasal Cannula 2.0 28 07/09/17 07:19 115 24 Nasal Cannula 2.0 28 07/09/17 04:27 115 07/09/17 04:00 97.5 122 20 115/69 97 Nasal Cannula 2.0 97.5 07/09/17 00:00 97.9 134 24 106/72 96 97.9 07/08/17 23:59 134 07/08/17 21:50 81 118/66 07/08/17 20:00 107 07/08/17 20:00 98.6 81 24 118/66 96 98.6 07/08/17 19:30 Nasal Cannula 3.0 32 07/08/17 19:30 92 Nasal Cannula 3.0 32 07/08/17 19:30 94 18 Nasal Cannula 3.0 32 07/08/17 17:13 110/75 07/08/17 16:00 73 07/08/17 15:52 97 110/75 07/08/17 15:39 98.0 97 20 110/75 92 98.0 07/08/17 14:26 124 134/92 Intake and Output 07/08/17 07/09/17 19:00 07:00 Intake Total 775 ml 400 ml Balance 775 ml 400 ml Intake Oral 720 ml 400 ml IV Total 55 ml # Bowel Movements 3 1 Laboratory Tests 07/09/17 06:30: White Blood Count 6.4, Red Blood Count 2.67L, Hemoglobin 8.3L, Hematocrit 27.7L , Mean Corpuscular Volume 104H, Mean Corpuscular Hemoglobin 31.2H, Mean Corpuscular Hemoglobin Concent 30.1L, Red Cell Distribution Width 19.6H, Platelet Count 73L, Mean Platelet Volume 8.0, Neutrophils (%) (Auto) , Lymphocytes (%) (Auto) , Monocytes (%) (Auto) , Eosinophils (%) (Auto) , Basophils (%) (Auto) , Differential Total Cells Counted 100, Neutrophils % ( Manual) 41L, Lymphocytes % (Manual) 31, Monocytes % (Manual) 17H, Eosinophils % (Manual) 11H, Basophils % (Manual) 0, Band Neutrophils 0, Platelet Estimate DecreasedL, Platelet Morphology Normal, Polychromasia 2+, Hypochromasia 1+, Anisocytosis 1+, Macrocytosis 1+, Sodium Level 138, Potassium Level 3.8, Chloride Level 97L, Carbon Dioxide Level 33H, Anion Gap 8, Blood Urea Nitrogen 57H, Creatinine 12.2H, Estimat Glomerular Filtration Rate 5.2, Glucose Level 134H, Calcium Level 8.2L, Total Bilirubin 1.3H, Direct Bilirubin 0.7H, Aspartate Amino Transf (AST/SGOT) 34, Alanine Aminotransferase (ALT/SGPT) 16, Alkaline Phosphatase 106, Total Protein 6.3L, Albumin 2.2L, Globulin 4.1, Albumin/Globulin Ratio 0.5L Height (Feet): 5 Height (Inches): 7.00 Weight (Pounds): 241 General Appearance: no apparent distress Respiratory/Chest: decreased breath sounds Abdomen: distended Objective no change LIAM MONTELONGO Jul 09, 2017 12:17
--- NOTE | 2017-07-09 13:59 | Anethesia Preoperative Eval ---
Anesthesia Pre-op PMH/ROS General Date of Evaluation: Jul 09, 2017 Anesthesiologist: Amari ASA Score: ASA 3 Mallampati Score Class I : Soft palate, uvula, fauces, pillars visible Class II: Soft palate, uvula, fauces visible Class III: Soft palate, base of uvula visible Class IV: Only hard plate visible Mallampati Classification: Class II Surgeon: Delroy Diagnosis: Lung Cavitary Lesion Surgical Procedure: Bronchoscopy Anesthesia History: none Family History: no anesthesia problems Allergies: Coded Allergies: IODINE AND IODIDE CONTAINING PRODUC (Verified Allergy, Mild, itching and pruritis, 06/25/17) Uncoded Allergies: CONTRAST/DYE (Allergy, Intermediate, PRURITIS AND ITCHING, 06/25/17) Medications: see eMAR Anesthesia Pre-op Phys. Exam Physician Exam Last Vital Signs Date Time Temp Pulse Resp B/P (MAP) Pulse Ox O2 Delivery O2 Flow Rate FiO2 07/09/17 12:00 97.0 106 20 122/77 97 97.0 07/09/17 07:19 Nasal Cannula 2.0 28 Constitutional: NAD Neurologic: CN 2-12 intact Cardiovascular: RRR Respiratory: CTA Gastrointestinal: S/NT/ND Airway Exam Mallampati Score: Class II MO: full ROM: full Teeth: intact Anesthesia Pre-op A/P Labs Hematology Test 07/09/17 06:30 White Blood Count 6.4 K/UL (4.8-10.8) Red Blood Count 2.67 M/UL (4.70-6.10) L Hemoglobin 8.3 G/DL (14.2-18.0) L Hematocrit 27.7 % (42.0-52.0) L Mean Corpuscular Volume 104 FL (80-99) H Mean Corpuscular Hemoglobin 31.2 PG (27.0-31.0) H Mean Corpuscular Hemoglobin Concent 30.1 G/DL (32.0-36.0) L Red Cell Distribution Width 19.6 % (11.6-14.8) H Platelet Count 73 K/UL (150-450) L Mean Platelet Volume 8.0 FL (6.5-10.1) Neutrophils (%) (Auto) % (45.0-75.0) Lymphocytes (%) (Auto) % (20.0-45.0) Monocytes (%) (Auto) % (1.0-10.0) Eosinophils (%) (Auto) % (0.0-3.0) Basophils (%) (Auto) % (0.0-2.0) Differential Total Cells Counted 100 Neutrophils % (Manual) 41 % (45-75) L Lymphocytes % (Manual) 31 % (20-45) Monocytes % (Manual) 17 % (1-10) H Eosinophils % (Manual) 11 % (0-3) H Basophils % (Manual) 0 % (0-2) Band Neutrophils 0 % (0-8) Platelet Estimate Decreased L Platelet Morphology Normal Polychromasia 2+ Hypochromasia 1+ Anisocytosis 1+ Macrocytosis 1+ Chemistry Test 07/09/17 06:30 Sodium Level 138 MMOL/L (136-145) Potassium Level 3.8 MMOL/L (3.5-5.1) Chloride Level 97 MMOL/L (98-107) L Carbon Dioxide Level 33 MMOL/L (21-32) H Anion Gap 8 mmol/L (5-15) Blood Urea Nitrogen 57 mg/dL (7-18) H Creatinine 12.2 MG/DL (0.55-1.30) H Estimat Glomerular Filtration Rate 5.2 mL/min (>60) Glucose Level 134 MG/DL (74-106) H Calcium Level 8.2 MG/DL (8.5-10.1) L Total Bilirubin 1.3 MG/DL (0.2-1.0) H Direct Bilirubin 0.7 MG/DL (0.0-0.3) H Aspartate Amino Transf (AST/SGOT) 34 U/L (15-37) Alanine Aminotransferase (ALT/SGPT) 16 U/L (12-78) Alkaline Phosphatase 106 U/L (46-116) Total Protein 6.3 G/DL (6.4-8.2) L Albumin 2.2 G/DL (3.4-5.0) L Globulin 4.1 g/dL Albumin/Globulin Ratio 0.5 (1.0-2.7) L Risk Assessment & Plan Plan: GA Status Change Before Surgery: No Pre-Antibiotics Given Within 1 Hr of Incision: No Saud Fitzpatrick M.D. Jul 09, 2017 13:59
--- NOTE | 2017-07-09 14:32 | Diagnostic Imaging Report ---
Indication: Dyspnea Comparison: July 07, 2017 A single view chest radiograph was obtained. Findings: Pulmonary vascular congestion demonstrated with prominent vascularity, interstitial edema and cardiomegaly. Right jugular line again noted. Pacemaker again noted. IMPRESSION: No change. CHF
--- NOTE | 2017-07-09 15:00 | Pulmonology Progress Note ---
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 Subjective ROS Limited/Unobtainable: No - wa Interval Events: was sob earlier, cxr showed mild pulmonary edema. Allergies: Coded Allergies: IODINE AND IODIDE CONTAINING PRODUC (Verified Allergy, Mild, itching and pruritis, 06/25/17) Uncoded Allergies: CONTRAST/DYE (Allergy, Intermediate, PRURITIS AND ITCHING, 06/25/17) Objective Last 24 Hour Vital Signs Date Time Temp Pulse Resp B/P (MAP) Pulse Ox O2 Delivery O2 Flow Rate FiO2 07/09/17 12:00 97.0 106 20 122/77 97 97.0 07/09/17 08:00 97.9 114 20 117/71 95 97.9 07/09/17 07:19 95 Nasal Cannula 2.0 28 07/09/17 07:19 Nasal Cannula 2.0 28 07/09/17 07:19 115 24 Nasal Cannula 2.0 28 07/09/17 04:27 115 07/09/17 04:00 97.5 122 20 115/69 97 Nasal Cannula 2.0 97.5 07/09/17 00:00 97.9 134 24 106/72 96 97.9 07/08/17 23:59 134 07/08/17 21:50 81 118/66 07/08/17 20:00 107 07/08/17 20:00 98.6 81 24 118/66 96 98.6 07/08/17 19:30 Nasal Cannula 3.0 32 07/08/17 19:30 92 Nasal Cannula 3.0 32 07/08/17 19:30 94 18 Nasal Cannula 3.0 32 07/08/17 17:13 110/75 07/08/17 16:00 73 07/08/17 15:52 97 110/75 07/08/17 15:39 98.0 97 20 110/75 92 98.0 Intake and Output 4/3/18 4/4/18 19:00 07:00 Intake Total 775 ml 400 ml Balance 775 ml 400 ml Intake Oral 720 ml 400 ml IV Total 55 ml # Bowel Movements 3 1 Objective General Appearance: WD/WN HEENT: normocephalic, atraumatic, anicteric Respiratory/Chest: loud rhonchi Cardiovascular: normal peripheral pulses, normal rate, regular rhythm Abdomen: normal bowel sounds, soft, non tender, no organomegaly Genitourinary: normal external genitalia Extremities: no cyanosis Skin: no rash, no lesions 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, no motor/sensory deficits Lymphatic: no neck adenopathy, no groin adenopathy Laboratory Tests 07/09/17 06:30: White Blood Count 6.4, Red Blood Count 2.67L, Hemoglobin 8.3L, Hematocrit 27.7L , Mean Corpuscular Volume 104H, Mean Corpuscular Hemoglobin 31.2H, Mean Corpuscular Hemoglobin Concent 30.1L, Red Cell Distribution Width 19.6H, Platelet Count 73L, Mean Platelet Volume 8.0, Neutrophils (%) (Auto) , Lymphocytes (%) (Auto) , Monocytes (%) (Auto) , Eosinophils (%) (Auto) , Basophils (%) (Auto) , Differential Total Cells Counted 100, Neutrophils % ( Manual) 41L, Lymphocytes % (Manual) 31, Monocytes % (Manual) 17H, Eosinophils % (Manual) 11H, Basophils % (Manual) 0, Band Neutrophils 0, Platelet Estimate DecreasedL, Platelet Morphology Normal, Polychromasia 2+, Hypochromasia 1+, Anisocytosis 1+, Macrocytosis 1+, Sodium Level 138, Potassium Level 3.8, Chloride Level 97L, Carbon Dioxide Level 33H, Anion Gap 8, Blood Urea Nitrogen 57H, Creatinine 12.2H, Estimat Glomerular Filtration Rate 5.2, Glucose Level 134H, Calcium Level 8.2L, Total Bilirubin 1.3H, Direct Bilirubin 0.7H, Aspartate Amino Transf (AST/SGOT) 34, Alanine Aminotransferase (ALT/SGPT) 16, Alkaline Phosphatase 106, Total Protein 6.3L, Albumin 2.2L, Globulin 4.1, Albumin/Globulin Ratio 0.5L Current Medications Medications (Trade) Dose Ordered Sig/Jose Route PRN Reason Start Time Stop Time Status Last Admin Dose Admin Albuterol/ Ipratropium (Albuterol/ Ipratropium) 3 ml Q4H PRN HHN Shortness of Breath 07/06/17 04:30 07/10/17 08:29 Amikacin Protocol (Amikacin pharmacy to dose) 1 ea DAILY PRN MISC Per rx protocol 07/06/17 09:00 08/03/17 15:14 Amikacin Sulfate 1000 mg/Dextrose 114 ml @ 228 mls/hr FRI- IV 07/07/17 21:00 07/11/17 20:59 07/07/17 21:21 Apixaban (Eliquis) 2.5 mg BID ORAL 07/06/17 18:00 08/05/17 17:59 07/09/17 09:10 Carisoprodol (Soma) 350 mg Q6H PRN ORAL MUSCLE SPASMS 07/06/17 07:00 07/14/17 18:59 07/08/17 01:53 Chlorhexidine Gluconate (Mireille-Hex 2%) 1 applic DAILY@2000 07/06/17 20:00 08/02/17 19:59 07/08/17 21:49 Clonidine HCl (Catapres Tab) 0.1 mg Q4H PRN ORAL bp over 160 syst 07/06/17 07:30 07/19/17 11:29 Dextrose (Dextrose 50%) 25 ml STAT PRN IV HYPOGLYCEMIA 07/09/17 08:30 08/08/17 08:29 Dextrose (Dextrose 50%) 50 ml STAT PRN IV Hypoglycemia 07/09/17 08:30 07/14/17 18:59 Diltiazem HCl (Cardizem) 10 mg Q1H PRN IVP tachycardia 07/08/17 15:30 08/07/17 15:29 07/08/17 15:52 Docusate Sodium (Colace) 100 mg THREE TIMES A DAY ORAL 07/06/17 09:00 07/18/17 13:00 07/09/17 09:08 Ethambutol HCl (Myambutol) 1,000 mg 3XW ORAL 07/07/17 09:00 07/18/17 23:59 07/09/17 09:09 Hydromorphone HCl (Dilaudid) 2 mg Q4H PRN IVP Severe Pain (Pain Scale 7-10) 07/09/17 12:45 07/16/17 12:44 07/09/17 13:24 Levofloxacin (Levaquin) 750 mg EVERY OTHER DAY@2000 ORAL 07/07/17 20:00 07/14/17 19:59 07/07/17 20:34 Lisinopril (Prinivil) 20 mg BID ORAL 07/06/17 09:00 07/19/17 18:00 07/07/17 18:39 Metoprolol Tartrate (Lopressor) 5 mg Q5MIN X 3 IVP 07/06/17 14:15 08/05/17 14:14 07/07/17 00:38 Metoprolol Tartrate (Lopressor) 75 mg Q12HR ORAL 07/08/17 21:00 08/07/17 20:59 07/08/17 21:50 Nitroglycerin (Ntg) 0.4 mg Q5M PRN SL Prn Chest Pain 07/06/17 04:00 07/19/17 11:29 Ondansetron HCl (Zofran) 4 mg Q6H PRN IVP Nausea & Vomiting 07/06/17 06:30 07/14/17 18:29 07/08/17 18:21 Pantoprazole (Protonix) 40 mg ACBREAKFAST ORAL 07/06/17 06:30 07/15/17 06:29 07/09/17 06:55 Piperacillin Sod/ Tazobactam Sod 2.25 gm/Dextrose 55 ml @ 110 mls/hr Q8HR IVPB 07/08/17 14:00 07/13/17 13:59 07/09/17 13:24 Polyethylene Glycol (Miralax) 17 gm DAILYPRN PRN ORAL Constipation 07/06/17 18:30 07/14/17 18:29 Promethazine HCl/ Codeine (Phenergan with Codeine) 5 ml Q4H PRN ORAL For Cough 07/06/17 06:30 07/22/17 10:30 07/08/17 01:56 Sevelamer Carbonate (Renvela) 2,400 mg THREE TIMES A DAY ORAL 07/06/17 09:00 07/16/17 18:44 07/09/17 13:23 Temazepam (Restoril) 15 mg HSPRN PRN ORAL Insomnia 07/06/17 21:00 07/09/17 20:59 07/07/17 22:57 Christine Morgan MD Jul 09, 2017 15:00
[2017-07-09] MEDS ORDERED: ALPRAZolam 0.5mg tab ORAL PRN (15:15)
[2017-07-09] MEDS: ALPRAZolam 0.5mg tab ORAL PRN (15:37)
--- NOTE | 2017-07-09 17:47 | Cardiology Progress Note ---
Assessment/Plan Assessment/Plan pleuritic chest pain neg recent sig perfusion abn; systolic dysfunction on mild degree involving the septum cavitating lung lesion improved on recent ct esrd htn anemia icd hx biotonix , interrogated 07/09/19 edema afib thrombocytopenia tachy still will addd cardizem atc plt low is on eliquis for stroke prevention venous duplex neg echo reviewed swma in septum (possible) as tech difficult study ef 45% dialysis per dr grimaldo may need more fluid removal message left afb smear neg ct noted icd interrogated yest no shock fucntion fine Subjective Cardiovascular: Denies: chest pain, irregular heart rate Respiratory: Reports: shortness of breath Gastrointestinal/Abdominal: Denies: abdominal pain Genitourinary: Denies: burning Objective Last 24 Hour Vital Signs Date Time Temp Pulse Resp B/P (MAP) Pulse Ox O2 Delivery O2 Flow Rate FiO2 07/09/17 16:44 97.5 116 20 114/79 96 97.5 07/09/17 12:00 97.0 106 20 122/77 97 97.0 07/09/17 08:00 97.9 114 20 117/71 95 97.9 07/09/17 07:19 95 Nasal Cannula 2.0 28 07/09/17 07:19 Nasal Cannula 2.0 28 07/09/17 07:19 115 24 Nasal Cannula 2.0 28 07/09/17 04:27 115 07/09/17 04:00 97.5 122 20 115/69 97 Nasal Cannula 2.0 97.5 07/09/17 00:00 97.9 134 24 106/72 96 97.9 07/08/17 23:59 134 07/08/17 21:50 81 118/66 07/08/17 20:00 107 07/08/17 20:00 98.6 81 24 118/66 96 98.6 07/08/17 19:30 Nasal Cannula 3.0 32 07/08/17 19:30 92 Nasal Cannula 3.0 32 07/08/17 19:30 94 18 Nasal Cannula 3.0 32 General Appearance: no apparent distress Neck: supple Cardiovascular: tachycardia Respiratory/Chest: rhonchi - left, expiratory wheezing Abdomen: normal bowel sounds, non tender, soft Extremities: moderate edema Intake and Output 07/08/17 07/09/17 19:00 07:00 Intake Total 775 ml 400 ml Balance 775 ml 400 ml Intake Oral 720 ml 400 ml IV Total 55 ml # Bowel Movements 3 1 Laboratory Tests Test 07/09/17 06:30 White Blood Count 6.4 K/UL (4.8-10.8) Red Blood Count 2.67 M/UL (4.70-6.10) L Hemoglobin 8.3 G/DL (14.2-18.0) L Hematocrit 27.7 % (42.0-52.0) L Mean Corpuscular Volume 104 FL (80-99) H Mean Corpuscular Hemoglobin 31.2 PG (27.0-31.0) H Mean Corpuscular Hemoglobin Concent 30.1 G/DL (32.0-36.0) L Red Cell Distribution Width 19.6 % (11.6-14.8) H Platelet Count 73 K/UL (150-450) L Mean Platelet Volume 8.0 FL (6.5-10.1) Neutrophils (%) (Auto) % (45.0-75.0) Lymphocytes (%) (Auto) % (20.0-45.0) Monocytes (%) (Auto) % (1.0-10.0) Eosinophils (%) (Auto) % (0.0-3.0) Basophils (%) (Auto) % (0.0-2.0) Differential Total Cells Counted 100 Neutrophils % (Manual) 41 % (45-75) L Lymphocytes % (Manual) 31 % (20-45) Monocytes % (Manual) 17 % (1-10) H Eosinophils % (Manual) 11 % (0-3) H Basophils % (Manual) 0 % (0-2) Band Neutrophils 0 % (0-8) Platelet Estimate Decreased L Platelet Morphology Normal Polychromasia 2+ Hypochromasia 1+ Anisocytosis 1+ Macrocytosis 1+ Sodium Level 138 MMOL/L (136-145) Potassium Level 3.8 MMOL/L (3.5-5.1) Chloride Level 97 MMOL/L (98-107) L Carbon Dioxide Level 33 MMOL/L (21-32) H Anion Gap 8 mmol/L (5-15) Blood Urea Nitrogen 57 mg/dL (7-18) H Creatinine 12.2 MG/DL (0.55-1.30) H Estimat Glomerular Filtration Rate 5.2 mL/min (>60) Glucose Level 134 MG/DL (74-106) H Calcium Level 8.2 MG/DL (8.5-10.1) L Total Bilirubin 1.3 MG/DL (0.2-1.0) H Direct Bilirubin 0.7 MG/DL (0.0-0.3) H Aspartate Amino Transf (AST/SGOT) 34 U/L (15-37) Alanine Aminotransferase (ALT/SGPT) 16 U/L (12-78) Alkaline Phosphatase 106 U/L (46-116) Total Protein 6.3 G/DL (6.4-8.2) L Albumin 2.2 G/DL (3.4-5.0) L Globulin 4.1 g/dL Albumin/Globulin Ratio 0.5 (1.0-2.7) L PRECIOUS GARCIA Jul 09, 2017 17:47
--- NOTE | 2017-07-09 20:28 | General Progress Note ---
Assessment/Plan Assessment/Plan Assessment - gallstones - abnormal LFT - suspect due to cirrhosis +/- meds, patient declines HIDA - Anemia, multifactorial - OB (+) Stool - patient declines EGD/Colon - ESRD/HD - DM - HTN - COPD - Cavitary lung disease - abnormal GB ultrasound - declines HIDA - Thrombocytopenia - cirrhotic appearing liver on CT - Hepatitis C Ab (+)/ PCR (-) - Poor prognosis Recommendations - PO as tolerated - follow symptoms and exam - monitor LFT - avoid hepatotoxic meds - PRN tylenol d/c'd - abx per ID - transfuse PRN - Acid blockade - current meds reviewed with pharm D - no suspect hepatotoxic meds - ? recent elevation due to 10 d Rifampin (now off) Subjective Allergies: Coded Allergies: IODINE AND IODIDE CONTAINING PRODUC (Verified Allergy, Mild, itching and pruritis, 06/25/17) Uncoded Allergies: CONTRAST/DYE (Allergy, Intermediate, PRURITIS AND ITCHING, 06/25/17) Subjective above noted d/w RN tolerating PO no N/V Objective Last 24 Hour Vital Signs Date Time Temp Pulse Resp B/P (MAP) Pulse Ox O2 Delivery O2 Flow Rate FiO2 07/09/17 20:21 Nasal Cannula 3.0 07/09/17 20:16 Nasal Cannula 3.0 07/09/17 20:08 97.8 137 28 106/66 Nasal Cannula 3.0 97.8 07/09/17 18:31 136 26 Nasal Cannula 2.0 28 07/09/17 18:31 96 Nasal Cannula 2.0 28 07/09/17 18:31 Nasal Cannula 2.0 28 07/09/17 16:44 97.5 116 20 114/79 96 97.5 07/09/17 16:00 123 07/09/17 16:00 97.5 122 28 114/79 Nasal Cannula 3.0 97.5 07/09/17 16:00 Nasal Cannula 3.0 07/09/17 12:00 97.0 106 20 122/77 97 97.0 07/09/17 11:43 110 07/09/17 08:00 97.9 114 20 117/71 95 97.9 07/09/17 08:00 121 07/09/17 07:19 95 Nasal Cannula 2.0 28 07/09/17 07:19 Nasal Cannula 2.0 28 07/09/17 07:19 115 24 Nasal Cannula 2.0 28 07/09/17 04:27 115 07/09/17 04:00 97.5 122 20 115/69 97 Nasal Cannula 2.0 97.5 07/09/17 00:00 97.9 134 24 106/72 96 97.9 07/08/17 23:59 134 07/08/17 21:50 81 118/66 Intake and Output 07/08/17 07/09/17 19:00 07:00 Intake Total 775 ml 400 ml Balance 775 ml 400 ml Intake Oral 720 ml 400 ml IV Total 55 ml # Bowel Movements 3 1 Laboratory Tests 07/09/17 06:30: White Blood Count 6.4, Red Blood Count 2.67L, Hemoglobin 8.3L, Hematocrit 27.7L , Mean Corpuscular Volume 104H, Mean Corpuscular Hemoglobin 31.2H, Mean Corpuscular Hemoglobin Concent 30.1L, Red Cell Distribution Width 19.6H, Platelet Count 73L, Mean Platelet Volume 8.0, Neutrophils (%) (Auto) , Lymphocytes (%) (Auto) , Monocytes (%) (Auto) , Eosinophils (%) (Auto) , Basophils (%) (Auto) , Differential Total Cells Counted 100, Neutrophils % ( Manual) 41L, Lymphocytes % (Manual) 31, Monocytes % (Manual) 17H, Eosinophils % (Manual) 11H, Basophils % (Manual) 0, Band Neutrophils 0, Platelet Estimate DecreasedL, Platelet Morphology Normal, Polychromasia 2+, Hypochromasia 1+, Anisocytosis 1+, Macrocytosis 1+, Sodium Level 138, Potassium Level 3.8, Chloride Level 97L, Carbon Dioxide Level 33H, Anion Gap 8, Blood Urea Nitrogen 57H, Creatinine 12.2H, Estimat Glomerular Filtration Rate 5.2, Glucose Level 134H, Calcium Level 8.2L, Total Bilirubin 1.3H, Direct Bilirubin 0.7H, Aspartate Amino Transf (AST/SGOT) 34, Alanine Aminotransferase (ALT/SGPT) 16, Alkaline Phosphatase 106, Total Protein 6.3L, Albumin 2.2L, Globulin 4.1, Albumin/Globulin Ratio 0.5L Height (Feet): 5 Height (Inches): 7.00 Weight (Pounds): 241 Objective WDWN AA Man NCAT supple CTA RRR Soft mildly distended, (+) improved RUQ TTP, (+) trunk edema (+) leg edema PERCY JOYNER Jul 09, 2017 20:28
[2017-07-09] MEDS: Amikacin 1,000 MG in D5W 110 ML IV SCH (21:29)
[2017-07-09] MEDS: Dyna-Hex 2% Top Sol 2oz TOPIC SCH (21:29)
[2017-07-09] MEDS: dilTIAZem HCl 25mg/5ml Inj IVP PRN (22:42)
--- NOTE | 2017-07-09 23:05 | General Progress Note ---
Assessment/Plan Assessment/Plan #. Thrombocytopenia. --> Hepatitis C ab ++, PCR - --> Monitor platelet level. Transfuse if platelet count <20k --> Levels remain low. Monitor closely. #. Left leg dvt --> acute onset, will need to review final duplex results --> begin on apixaban daily x 3 months, low h/h will need to monitor closely --> okay to change to different anticoagulant if renal clearance an issue --> If h/h downtrends below 7.5, consider ivc filter placement. --> Hemoglobin currently >7.5 #. Anemia secondary to chronic disease. --> Hemoglobin levels have remained above goal. No blood transfusion required at this time. --> S/P abd CAT scan revealing evidence of hepatic cirrhosis. --> Continue to closely monitor and trend cbc daily. --> Anemia workup completed and reviewed. Iron 42, TIBC 180, Ferritin 593, B12 876. --> Ferritin is >500, hgb goal is >7 --> Anemia w/u has been reviewed --> ++Occult blood. Consider GI Services and Recs. # Hepatosplenomegaly. Ascites. There is also evidence of generalized anasarca, with pleural fluid and generalized subcutaneous edema --> Abd pain improved on pain management #. Anemia of kidney disease --> HD as needed per nephrology team --> Monitor closely. --> Does not require iron at this time #. Generalized body ache related to fluid overload. #. End-stage renal disease, on hemodialysis as needed --> Monitor. S/P HD. #. Cardiomegaly. S/P Chest Xray --> Persistent but slightly decreased size of known right lung cavitary lesion. --> Persistent extensive interstitial and bilateral airspace opacities. --> Edema improved. Subjective Date patient seen: Jul 08, 2017 Constitutional: Denies: no symptoms, chills, diaphoresis, fever, malaise, weakness, other HEENT: Denies: no symptoms, eye pain, blurred vision, tearing, double vision, ear pain, ear discharge, nose pain, nose congestion, throat pain, throat swelling, mouth pain, mouth swelling, other Cardiovascular: Denies: no symptoms, chest pain, edema, irregular heart rate, lightheadedness, palpitations, syncope, other Respiratory: Denies: no symptoms, cough, orthopnea, shortness of breath, SOB with excertion, SOB at rest, sputum, stridor, wheezing, other Gastrointestinal/Abdominal: Denies: no symptoms, abdomen distended, abdominal pain, black stools, tarry stools, blood in stool, constipated, diarrhea, difficulty swallowing, nausea, poor appetite, poor fluid intake, rectal bleeding , vomiting, other Genitourinary: Denies: no symptoms, burning, discharge, frequency, flank pain, hematuria, incontinence, pain, urgency, other Neurologic/Psychiatric: Denies: no symptoms, anxiety, depressed, emotional problems, headache, numbness, paresthesia, pre-existing deficit, seizure, tingling, tremors, weakness, other Hematologic/Lymphatic: Reports: anemia Allergies: Coded Allergies: IODINE AND IODIDE CONTAINING PRODUC (Verified Allergy, Mild, itching and pruritis, 06/25/17) Uncoded Allergies: CONTRAST/DYE (Allergy, Intermediate, PRURITIS AND ITCHING, 06/25/17) Subjective Poor prognosis. Low platelets. No new events. Objective Last 24 Hour Vital Signs Date Time Temp Pulse Resp B/P (MAP) Pulse Ox O2 Delivery O2 Flow Rate FiO2 07/09/17 22:42 138 120/75 07/09/17 21:00 69 97/62 07/09/17 20:21 Nasal Cannula 3.0 07/09/17 20:16 Nasal Cannula 3.0 07/09/17 20:08 97.8 137 28 106/66 Nasal Cannula 3.0 97.8 07/09/17 18:31 136 26 Nasal Cannula 2.0 28 07/09/17 18:31 96 Nasal Cannula 2.0 28 07/09/17 18:31 Nasal Cannula 2.0 28 07/09/17 16:44 97.5 116 20 114/79 96 97.5 07/09/17 16:00 123 07/09/17 16:00 97.5 122 28 114/79 Nasal Cannula 3.0 97.5 07/09/17 16:00 Nasal Cannula 3.0 07/09/17 12:00 97.0 106 20 122/77 97 97.0 07/09/17 11:43 110 07/09/17 08:00 97.9 114 20 117/71 95 97.9 07/09/17 08:00 121 07/09/17 07:19 95 Nasal Cannula 2.0 28 07/09/17 07:19 Nasal Cannula 2.0 28 07/09/17 07:19 115 24 Nasal Cannula 2.0 28 07/09/17 04:27 115 07/09/17 04:00 97.5 122 20 115/69 97 Nasal Cannula 2.0 97.5 07/09/17 00:00 97.9 134 24 106/72 96 97.9 07/08/17 23:59 134 Intake and Output 07/08/17 07/09/17 19:00 07:00 Intake Total 775 ml 400 ml Balance 775 ml 400 ml Intake Oral 720 ml 400 ml IV Total 55 ml # Bowel Movements 3 1 Laboratory Tests 07/09/17 06:30: White Blood Count 6.4, Red Blood Count 2.67L, Hemoglobin 8.3L, Hematocrit 27.7L , Mean Corpuscular Volume 104H, Mean Corpuscular Hemoglobin 31.2H, Mean Corpuscular Hemoglobin Concent 30.1L, Red Cell Distribution Width 19.6H, Platelet Count 73L, Mean Platelet Volume 8.0, Neutrophils (%) (Auto) , Lymphocytes (%) (Auto) , Monocytes (%) (Auto) , Eosinophils (%) (Auto) , Basophils (%) (Auto) , Differential Total Cells Counted 100, Neutrophils % ( Manual) 41L, Lymphocytes % (Manual) 31, Monocytes % (Manual) 17H, Eosinophils % (Manual) 11H, Basophils % (Manual) 0, Band Neutrophils 0, Platelet Estimate DecreasedL, Platelet Morphology Normal, Polychromasia 2+, Hypochromasia 1+, Anisocytosis 1+, Macrocytosis 1+, Sodium Level 138, Potassium Level 3.8, Chloride Level 97L, Carbon Dioxide Level 33H, Anion Gap 8, Blood Urea Nitrogen 57H, Creatinine 12.2H, Estimat Glomerular Filtration Rate 5.2, Glucose Level 134H, Calcium Level 8.2L, Total Bilirubin 1.3H, Direct Bilirubin 0.7H, Aspartate Amino Transf (AST/SGOT) 34, Alanine Aminotransferase (ALT/SGPT) 16, Alkaline Phosphatase 106, Total Protein 6.3L, Albumin 2.2L, Globulin 4.1, Albumin/Globulin Ratio 0.5L Height (Feet): 5 Height (Inches): 7.00 Weight (Pounds): 241 General Appearance: confused Respiratory/Chest: decreased breath sounds Abdomen: soft Irving Parker MD Jul 09, 2017 23:04
[2017-07-10] VITALS (11 sets, daily range): BP systolic 104–131; BP diastolic 74–99
[2017-07-10] MEDS: ALPRAZolam 0.5mg tab ORAL PRN (01:50)
[2017-07-10] MEDS: Piperacillin/Tazobactam 2.25 GM in D5W 55 ML IVPB SCH ×3 (06:16→21:34)
[2017-07-10] MEDS ORDERED: fentaNYL 100 mcg/2 mL IV ONE (08:00)
[2017-07-10] MEDS ORDERED: Neostigmine 1mg/ml 10ml Inj ONE (08:00)
[2017-07-10] MEDS ORDERED: Midazolam 2mg/2ml Inj ONE (08:00)
[2017-07-10] MEDS ORDERED: Propofol 200mg/20ml IV ONE (08:00)
[2017-07-10] MEDS ORDERED: Glycopyrrolate 0.2mg/ml 1ml Vial ONE (08:00)
[2017-07-10] MEDS ORDERED: NS Irrig 1000ml ONE (08:00)
[2017-07-10] MEDS ORDERED: Zemuron 50mg/5ml Inj IV ONE (08:00)
--- NOTE | 2017-07-10 08:14 | Diagnostic Imaging Report ---
APPROVED REPORT CPT Code: 27412 Present Symptoms Comments: R/O DVT Pain BILATERAL: Imaging reveals a patent deep venous system bilaterally. There is no evidence of thrombus within the femoral, popliteal or tibial segments. The greater saphenous veins are also within normal limits. Doppler indicates normal spontaneous flow within these segments. Left lesser saphenous vein has acute clot near knee area.
[2017-07-10] MEDS: Lisinopril 20mg tab ORAL SCH ×2 (09:00→17:16)
[2017-07-10] MEDS: Docusate 100mg cap ORAL SCH ×3 (09:00→17:15)
--- NOTE | 2017-07-10 09:09 | Pre-Procedure Note/Attestation ---
Pre-Procedure Note/Attestation Complete Prior to Procedure Planned Procedure: bilateral Procedure Narrative: THORACENTESIS Indications for Procedure Pre-Operative Diagnosis: BRONCHOSCOPY WITH BRONCHOALVEOLAR LAVAGE AND BRUSHINGS Attestation I attest that I discussed the nature of the procedure; its benefits; risks and complications; and alternatives (and the risks and benefits of such alternatives ), prior to the procedure, with the patient (or the patient's legal customer assistance representative). I attest that, if there was a reasonable possibility of needing a blood transfusion, the patient (or the patient's legal customer assistance representative) was given the [facility] standardized written summary, pursuant to the Jonathan Gering Blood Safety Act ([place] Health and Safety Code # 1645, as amended). I attest that I re-evaluated the patient just prior to the surgery and that there has been no change in the patient's H&P, except as documented below: GER SHARMA M.D. Jul 10, 2017 09:09
[2017-07-10 09:19] LABS: HEMATOCRIT 33.2 % (42.0-52.0); HEMOGLOBIN 9.8 G/DL (14.2-18.0); MEAN CORPUSCULAR VOLUME 106 FL (80-99); PLATELET COUNT 91 K/UL (150-450); RED BLOOD COUNT 3.14 M/UL (4.70-6.10); RED CELL DISTRIBUTION WIDTH 19.9 % (11.6-14.8); WHITE BLOOD COUNT 7.2 K/UL (4.8-10.8)
[2017-07-10] MEDS ORDERED: Lidocaine 1% Plain 30 ml INJ ONE (09:33)
[2017-07-10] MEDS ORDERED: Lidocaine HCl 2% Jelly 5ml Tube TOPIC ONE (09:33)
[2017-07-10 09:44] LABS: INR 1.9 (0.9-1.1)
[2017-07-10] MEDS ORDERED: NS Irrig 1000ml IRRIG ONE (09:46)
[2017-07-10 09:47] LABS: ANION GAP 11 mmol/L (5-15); BLOOD UREA NITROGEN 52 mg/dL (7-18); CALCIUM 9.3 MG/DL (8.5-10.1); CARBON DIOXIDE 31 MMOL/L (21-32); CHLORIDE 97 MMOL/L (98-107); CREATININE 11.2 MG/DL (0.55-1.30); POTASSIUM 4.7 MMOL/L (3.5-5.1); SODIUM 139 MMOL/L (136-145)
--- NOTE | 2017-07-10 10:34 | Infectious Diseases Prog Note ---
Assessment/Plan Assessment/Plan Cavitary PNA. SCx: Neg ( m/l necrotizing Pneum, vs aerobic abscess, doubt TB or fungal ) ; improving - 07/09 SP BAL -CT chest 06/25: Since the prior study of 06/15/2017, and. From further reduction in size of previously demonstrated thick walled right upper lobe cavitary mass. This was previously thought to most likely represent a cavitary inflammatory mass, and the interim reduction in size certainly supports that. Much less likely a cavitary neoplasm, but follow-up to resolution is recommended. Markedly improved parenchymal disease bilaterally, since the previous study. Nonetheless , extensive atelectasis and groundglass consolidation persists. Persistent small right pleural effusion, smaller than on the prior study. Resolved left pleural effusion 6 mm nodular opacity in the right upper lobe, not evident previously but likely obscured by surrounding consolidated lung parenchyma. This should be followed up in 6 months to one year depending on results of interim follow-up exams -CXR 06/21: Persistent but slightly decreased size of known right lung cavitary lesion. Persistent extensive interstitial and bilateral airspace opacities. -sp cx 06/05, 06/06 normal resp jordin; repeat sp cx 06/18 PsA (singh S) + Providencia stuarti (S Ceftriaxone, R Cipro) (likely superinfection/HCAP) Rsp status improved but on 06/[address] his condition worsen T-SPOT :Neg AFB x 3 : Neg MTB PCR x2 : neg cryptococcus Ag, Histoplams mycelial Ab , Blastomyces ab : neg ; histoplasma yeast ab (not able to be done due to anticomplementary activity) -Cocci, Asp ag p -Fungitell + 144 (?aspergillosis vs false positive) 06/21 Xray : improvement of cavity CT chest 06/15: Slightly smaller (6 cm diameter ) but mostly unchanged cavitary lesion in the right lung, previously thought to represent a cavitating inflammatory process. Lung abscess is certainly a possibility. Fairly extensive bilateral pulmonary parenchymal consolidation, slightly increased from previous exam of 06/05/2017. Likely a combination of pulmonary edema and pneumonia. Small right and trace left pleural effusion, new/increased from the previous study. CT 06/05: 7.8 x 5.3 x 6.6 cm dense opacity in the posterior inferior right upper lobe with a central cavitation. Chest x-ray : right mid lung infiltrate, possible cavitation Rule out tuberculosis, fungal infection, or necrotizing pneumonia. CRP 14 Influenza negative Coccidioidal ,Galactomannan : NEG ( PER LAB ) Transaminitis , improving after stopping rifampin 2/2 Hep C cirrhosis- no active Hep C as VL not detected -CT abd/p: Evidence of hepatic cirrhosis. Hepatosplenomegaly. evidence of generalized anasarca, with pleural fluid and generalized subcutaneous edema. Cholelithiasis, also previously reported. Possible diverticulosis. No evidence of diverticulitis US Abd : Cholelithiasis. There is gallbladder wall thickening, likely related to hemodynamic abnormalities Splenomegaly. Evidence of hepatic cirrhosis HIV : NEG Hep Panel B neg , C Ab : +ve , VL not detected leukopenia and TCP 2/2 splenomegaly Seizure disorder History of CVA History of pacemaker placement Hyperlipidemia Hypertension COPD/asthma End-stage renal disease, on hemodialysis Diabetes Anxiety Anemia Echo, ejection fraction 45% to 50%. PLAN: - cont Zoysn d# 3 ( pt SOB and CXR worsen , better coverage of anaerobes, PSA and Providencia ); abx d# 36 / 42, then will switch to oral Clinda till resolution of of abscess Continue empiric Ethambutol and Levaquin, Amikacin ( empiric TB AB Rx d# 26 as per TB control request ) 07/07 SP Dc Flagyl 07/06 SP Voriconazole ( low antonio for fungal infection , and in the setting of cirrhosis ) 07/05 SP Micafungin abx d#20 , Rifampin 600mg qd #10 07/01 SP Ceftriaxone #10 06/28 SP Amikacin #15 06/25 SP PO Voriconazole #3 06/20 SP Liposomal Ampho #8 06/17 SP IV Vancomycin #14, Meropenem #5 06/13 SP Zosyn d# 10 3 SP Zithromax D# 6 f/u sputum culture (fungal, and AFB x3). - CMP - monitor BAL Cx Subjective Constitutional: Denies: no symptoms, fever, chills, fatigue, anorexia, drenching sweats, other Allergies: Coded Allergies: IODINE AND IODIDE CONTAINING PRODUC (Verified Allergy, Mild, itching and pruritis, 06/25/17) Uncoded Allergies: CONTRAST/DYE (Allergy, Intermediate, PRURITIS AND ITCHING, 06/25/17) Subjective SOB + , feels swollen Objective Vital Signs Last 24 Hour Vital Signs Date Time Temp Pulse Resp B/P (MAP) Pulse Ox O2 Delivery O2 Flow Rate FiO2 07/10/17 07:50 94 Nasal Cannula 2.0 28 07/10/17 07:50 Nasal Cannula 2.0 28 07/10/17 07:49 134 22 Nasal Cannula 2.0 28 07/10/17 04:00 121 07/10/17 04:00 98.1 127 24 115/82 100 Nasal Cannula 3.0 98.1 07/10/17 00:00 98.1 133 22 104/74 94 Nasal Cannula 3.0 98.1 07/09/17 23:27 131 07/09/17 22:42 138 120/75 07/09/17 21:00 69 97/62 07/09/17 20:21 Nasal Cannula 3.0 07/09/17 20:16 Nasal Cannula 3.0 07/09/17 20:08 97.8 137 28 106/66 Nasal Cannula 3.0 97.8 07/09/17 19:38 125 07/09/17 18:31 136 26 Nasal Cannula 2.0 28 07/09/17 18:31 96 Nasal Cannula 2.0 28 07/09/17 18:31 Nasal Cannula 2.0 28 07/09/17 16:44 97.5 116 20 114/79 96 97.5 07/09/17 16:00 123 07/09/17 16:00 97.5 122 28 114/79 Nasal Cannula 3.0 97.5 07/09/17 16:00 Nasal Cannula 3.0 07/09/17 12:00 97.0 106 20 122/77 97 97.0 07/09/17 11:43 110 Height (Feet): 5 Height (Inches): 7.00 Weight (Pounds): 233 HEENT: anicteric Respiratory/Chest: lungs clear, respiratory distress Cardiovascular: regularly irregular Abdomen: non distended Laboratory Tests Test 07/10/17 08:35 07/10/17 09:22 White Blood Count 7.2 K/UL (4.8-10.8) Red Blood Count 3.14 M/UL (4.70-6.10) L Hemoglobin 9.8 G/DL (14.2-18.0) L Hematocrit 33.2 % (42.0-52.0) L Mean Corpuscular Volume 106 FL (80-99) H Mean Corpuscular Hemoglobin 31.3 PG (27.0-31.0) H Mean Corpuscular Hemoglobin Concent 29.6 G/DL (32.0-36.0) L Red Cell Distribution Width 19.9 % (11.6-14.8) H Platelet Count 91 K/UL (150-450) L Mean Platelet Volume 7.9 FL (6.5-10.1) Neutrophils (%) (Auto) % (45.0-75.0) Lymphocytes (%) (Auto) % (20.0-45.0) Monocytes (%) (Auto) % (1.0-10.0) Eosinophils (%) (Auto) % (0.0-3.0) Basophils (%) (Auto) % (0.0-2.0) Differential Total Cells Counted 100 Neutrophils % (Manual) 38 % (45-75) L Lymphocytes % (Manual) 25 % (20-45) Monocytes % (Manual) 23 % (1-10) H Eosinophils % (Manual) 14 % (0-3) H Basophils % (Manual) 0 % (0-2) Band Neutrophils 0 % (0-8) Platelet Estimate Decreased L Platelet Morphology Normal Polychromasia 1+ Anisocytosis 1+ Sodium Level 139 MMOL/L (136-145) Potassium Level 4.7 MMOL/L (3.5-5.1) Chloride Level 97 MMOL/L (98-107) L Carbon Dioxide Level 31 MMOL/L (21-32) Anion Gap 11 mmol/L (5-15) Blood Urea Nitrogen 52 mg/dL (7-18) H Creatinine 11.2 MG/DL (0.55-1.30) H Estimat Glomerular Filtration Rate 5.7 mL/min (>60) Glucose Level 80 MG/DL (74-106) Calcium Level 9.3 MG/DL (8.5-10.1) Prothrombin Time 20.4 SEC (9.30-11.50) H Prothromb Time International Ratio 1.9 (0.9-1.1) H Current Medications Medications (Trade) Dose Ordered Sig/Jose Route PRN Reason Start Time Stop Time Status Last Admin Dose Admin Alprazolam (Xanax) 2 mg DAILYPRN PRN ORAL For Anxiety 07/09/17 15:15 4/11/18 15:14 07/10/17 01:50 Amikacin Protocol (Amikacin pharmacy to dose) 1 ea DAILY PRN MISC Per rx protocol 07/06/17 09:00 08/03/17 15:14 Amikacin Sulfate 1000 mg/Dextrose 114 ml @ 228 mls/hr MON-WED-FRI IV 07/07/17 21:00 07/11/17 20:59 07/09/17 21:29 Apixaban (Eliquis) 2.5 mg BID ORAL 07/06/17 18:00 08/05/17 17:59 07/09/17 17:44 Carisoprodol (Soma) 350 mg Q6H PRN ORAL MUSCLE SPASMS 07/06/17 07:00 07/14/17 18:59 07/08/17 01:53 Chlorhexidine Gluconate (Mireille-Hex 2%) 1 applic DAILY@2000 TOPIC 07/06/17 20:00 08/02/17 19:59 07/09/17 21:29 Clonidine HCl (Catapres Tab) 0.1 mg Q4H PRN ORAL bp over 160 syst 07/06/17 07:30 07/19/17 11:29 Dextrose (Dextrose 50%) 25 ml STAT PRN IV HYPOGLYCEMIA 07/09/17 08:30 08/08/17 08:29 Dextrose (Dextrose 50%) 50 ml STAT PRN IV Hypoglycemia 07/09/17 08:30 07/14/17 18:59 Diltiazem HCl (Cardizem) 10 mg Q1H PRN IVP tachycardia 07/08/17 15:30 08/07/17 15:29 07/09/17 22:42 Docusate Sodium (Colace) 100 mg THREE TIMES A DAY ORAL 07/06/17 09:00 07/18/17 13:00 07/09/17 17:53 Ethambutol HCl (Myambutol) 1,000 mg 3XW ORAL 07/07/17 09:00 07/18/17 23:59 07/09/17 09:09 Hydromorphone HCl (Dilaudid) 2 mg Q4H PRN IVP Severe Pain (Pain Scale 7-10) 07/09/17 12:45 07/16/17 12:44 07/10/17 06:13 Levofloxacin (Levaquin) 750 mg EVERY OTHER DAY@2000 ORAL 07/07/17 20:00 07/14/17 19:59 07/09/17 21:14 Lisinopril (Prinivil) 20 mg BID ORAL 07/06/17 09:00 07/19/17 18:00 07/07/17 18:39 Metoprolol Tartrate (Lopressor) 5 mg Q5MIN X 3 IVP 07/06/17 14:15 08/05/17 14:14 07/07/17 00:38 Metoprolol Tartrate (Lopressor) 75 mg Q12HR ORAL 07/08/17 21:00 08/07/17 20:59 07/08/17 21:50 Nitroglycerin (Ntg) 0.4 mg Q5M PRN SL Prn Chest Pain 07/06/17 04:00 07/19/17 11:29 Ondansetron HCl (Zofran) 4 mg Q6H PRN IVP Nausea & Vomiting 07/06/17 06:30 07/14/17 18:29 07/09/17 21:14 Pantoprazole (Protonix) 40 mg ACBREAKFAST ORAL 07/06/17 06:30 07/15/17 06:29 07/09/17 06:55 Piperacillin Sod/ Tazobactam Sod 2.25 gm/Dextrose 55 ml @ 110 mls/hr Q8HR IVPB 07/08/17 14:00 07/13/17 13:59 07/10/17 06:16 Polyethylene Glycol (Miralax) 17 gm DAILYPRN PRN ORAL Constipation 07/06/17 18:30 07/14/17 18:29 Promethazine HCl/ Codeine (Phenergan with Codeine) 5 ml Q4H PRN ORAL For Cough 07/06/17 06:30 07/22/17 10:30 07/08/17 01:56 Sevelamer Carbonate (Renvela) 2,400 mg THREE TIMES A DAY ORAL 07/06/17 09:00 07/16/17 18:44 07/09/17 17:54 Cristofer Antunez MD Jul 10, 2017 10:34
--- NOTE | 2017-07-10 10:45 | Immediate Post-Op Evaluation ---
Immediate Post-Op Evalulation Immediate Post-Op Evalulation Procedure: Bronchoscopy with brashing Date of Evaluation: Jul 10, 2017 Time of Evaluation: 10:44 IV Fluids: 200 Blood Products: none Estimated Blood Loss: none Urinary Output: none Blood Pressure Systolic: 116 Blood Pressure Diastolic: 54 Pulse Rate: 124 Respiratory Rate: 26 O2 Sat by Pulse Oximetry: 98 Temperature (Fahrenheit): 97.5 Pain Score (1-10): 2 Nausea: No Vomiting: No Complications none Patient Status: awake, patent, extubated, none Hydration Status: adequate SCOTT RICHARDS M.D. Jul 10, 2017 10:45
[2017-07-10] MEDS ORDERED: fentaNYL 100 mcg/2 mL IV PRN (11:00)
[2017-07-10] MEDS ORDERED: Midazolam 2mg/2ml Inj IVP PRN (11:00)
--- NOTE | 2017-07-10 11:12 | General Progress Note ---
Assessment/Plan Assessment/Plan Assessment - gallstones - abnormal LFT - suspect due to cirrhosis +/- meds - Periodic N/V with abnormal GB ultrasound, ? possibly biliary colic - patient declined HIDA - Anemia, multifactorial - OB (+) Stool - patient declined EGD/Colon - ESRD/HD - DM - HTN - COPD - Cavitary lung disease - Thrombocytopenia - cirrhotic appearing liver on CT - Hepatitis C Ab (+)/ PCR (-) - Poor prognosis Recommendations - PO as tolerated - follow symptoms and exam - monitor LFT - avoid hepatotoxic meds - abx per ID - transfuse PRN - Acid blockade - current meds reviewed with pharm D - no suspect hepatotoxic meds Subjective Allergies: Coded Allergies: IODINE AND IODIDE CONTAINING PRODUC (Verified Allergy, Mild, itching and pruritis, 06/25/17) Uncoded Allergies: CONTRAST/DYE (Allergy, Intermediate, PRURITIS AND ITCHING, 06/25/17) Subjective above noted d/w private duty states had N/V yesterday Objective Last 24 Hour Vital Signs Date Time Temp Pulse Resp B/P (MAP) Pulse Ox O2 Delivery O2 Flow Rate FiO2 07/10/17 10:50 132 28 119/99 100 Simple Mask 8.0 07/10/17 10:45 207.5 124 26 98 07/10/17 10:42 131 35 122/95 100 Simple Mask 8.0 07/10/17 10:37 131 36 120/79 100 Simple Mask 8.0 07/10/17 10:32 97.6 130 36 113/86 100 Simple Mask 8.0 97.6 07/10/17 07:50 94 Nasal Cannula 2.0 28 07/10/17 07:50 Nasal Cannula 2.0 28 07/10/17 07:49 134 22 Nasal Cannula 2.0 28 07/10/17 04:00 121 07/10/17 04:00 98.1 127 24 115/82 100 Nasal Cannula 3.0 98.1 07/10/17 00:00 98.1 133 22 104/74 94 Nasal Cannula 3.0 98.1 07/09/17 23:27 131 07/09/17 22:42 138 120/75 07/09/17 21:00 69 97/62 07/09/17 20:21 Nasal Cannula 3.0 07/09/17 20:16 Nasal Cannula 3.0 07/09/17 20:08 97.8 137 28 106/66 Nasal Cannula 3.0 97.8 07/09/17 19:38 125 07/09/17 18:31 136 26 Nasal Cannula 2.0 28 07/09/17 18:31 96 Nasal Cannula 2.0 28 07/09/17 18:31 Nasal Cannula 2.0 28 07/09/17 16:44 97.5 116 20 114/79 96 97.5 07/09/17 16:00 123 07/09/17 16:00 97.5 122 28 114/79 Nasal Cannula 3.0 97.5 07/09/17 16:00 Nasal Cannula 3.0 07/09/17 12:00 97.0 106 20 122/77 97 97.0 07/09/17 11:43 110 Intake and Output 07/09/17 07/10/17 19:00 07:00 Intake Total 480 ml 240 ml Output Total 4750 ml Balance 480 ml -4510 ml Intake Oral 480 ml 240 ml Output Urine Total 200 ml Hemodialysis UF 4550 ml # Voids 1 # Bowel Movements 2 1 Laboratory Tests 07/10/17 08:35: White Blood Count 7.2, Red Blood Count 3.14L, Hemoglobin 9.8L, Hematocrit 33.2L , Mean Corpuscular Volume 106H, Mean Corpuscular Hemoglobin 31.3H, Mean Corpuscular Hemoglobin Concent 29.6L, Red Cell Distribution Width 19.9H, Platelet Count 91L, Mean Platelet Volume 7.9, Neutrophils (%) (Auto) , Lymphocytes (%) (Auto) , Monocytes (%) (Auto) , Eosinophils (%) (Auto) , Basophils (%) (Auto) , Differential Total Cells Counted 100, Neutrophils % ( Manual) 38L, Lymphocytes % (Manual) 25, Monocytes % (Manual) 23H, Eosinophils % (Manual) 14H, Basophils % (Manual) 0, Band Neutrophils 0, Platelet Estimate DecreasedL, Platelet Morphology Normal, Polychromasia 1+, Anisocytosis 1+, Sodium Level 139, Potassium Level 4.7, Chloride Level 97L, Carbon Dioxide Level 31, Anion Gap 11, Blood Urea Nitrogen 52H, Creatinine 11.2H, Estimat Glomerular Filtration Rate 5.7, Glucose Level 80, Calcium Level 9.3 07/10/17 09:22: Prothrombin Time 20.4H, Prothromb Time International Ratio 1.9H Height (Feet): 5 Height (Inches): 7.00 Weight (Pounds): 233 Objective WDWN AA Man NCAT supple CTA RRR Soft mildly distended, (+) improved RUQ TTP, (+) trunk edema (+) leg edema PERCY JOYNER Jul 10, 2017 11:12
--- NOTE | 2017-07-10 11:25 | Operative Note - PDOC ---
Operative Note Operative Note Date of Operation/Procedure: Jul 10, 2017 Chief Complaint: [id number] Pre-op Diagnosis: RUL CAVITY Procedure: BRONCHOSCOPY WITH BRONCHOALVEOLAR LAVAGE AND BRUSHINGS Post-op Diagnosis: SAME Post-op Diagnosis: same as pre-op Anesthesia: general Specimen: yes Complications: none Condition: stable Estimated Blood Loss: none Drains: none Implant(s) used?: No GER SHARMA M.D. Jul 10, 2017 11:25
[2017-07-10] MEDS: Metoprolol 25mg tab ORAL SCH ×2 (12:15→20:50)
[2017-07-10] MEDS: Eliquis 2.5mg tablet ORAL SCH ×2 (12:15→17:15)
--- NOTE | 2017-07-10 13:13 | Nephrology Progress Note ---
Assessment/Plan Problem List: (1) ESRD (end stage renal disease) on dialysis (2) Shortness of breath (3) Anemia Assessment Anemia ESRD , missed HD on admission , admitted with high K and pulmonary edema Acute respiratory distress due to volume overload elevated troponin r/o ACS h/o COPD ? exacerbation HTN urgency Cardiomyopathy L AICD anemia of chronic kidney disease Hx of CVA Plan Plan: HD next 4/6 Transfused Phos binders BP meds adjustment Optimize cardiac status per orders Subjective ROS Limited/Unobtainable: No Constitutional: Reports: malaise Objective Objective Last 24 Hour Vital Signs Date Time Temp Pulse Resp B/P (MAP) Pulse Ox O2 Delivery O2 Flow Rate FiO2 07/10/17 12:47 98.0 07/10/17 12:17 98.0 07/10/17 12:15 133 125/97 07/10/17 11:15 98.0 133 31 125/97 100 Simple Mask 8.0 98.0 07/10/17 11:00 132 35 131/94 100 Simple Mask 8.0 07/10/17 10:50 132 28 119/99 100 Simple Mask 8.0 07/10/17 10:45 207.5 124 26 98 07/10/17 10:42 131 35 122/95 100 Simple Mask 8.0 07/10/17 10:37 131 36 120/79 100 Simple Mask 8.0 07/10/17 10:32 97.6 130 36 113/86 100 Simple Mask 8.0 97.6 07/10/17 07:50 94 Nasal Cannula 2.0 28 07/10/17 07:50 Nasal Cannula 2.0 28 07/10/17 07:49 134 22 Nasal Cannula 2.0 28 07/10/17 04:00 121 07/10/17 04:00 98.1 127 24 115/82 100 Nasal Cannula 3.0 98.1 07/10/17 00:00 98.1 133 22 104/74 94 Nasal Cannula 3.0 98.1 07/09/17 23:27 131 07/09/17 22:42 138 120/75 07/09/17 21:00 69 97/62 07/09/17 20:21 Nasal Cannula 3.0 07/09/17 20:16 Nasal Cannula 3.0 07/09/17 20:08 97.8 137 28 106/66 Nasal Cannula 3.0 97.8 07/09/17 19:38 125 07/09/17 18:31 136 26 Nasal Cannula 2.0 28 07/09/17 18:31 96 Nasal Cannula 2.0 28 07/09/17 18:31 Nasal Cannula 2.0 28 07/09/17 16:44 97.5 116 20 114/79 96 97.5 07/09/17 16:00 123 07/09/17 16:00 97.5 122 28 114/79 Nasal Cannula 3.0 97.5 07/09/17 16:00 Nasal Cannula 3.0 Intake and Output 07/09/17 07/10/17 19:00 07:00 Intake Total 480 ml 240 ml Output Total 4750 ml Balance 480 ml -4510 ml Intake Oral 480 ml 240 ml Output Urine Total 200 ml Hemodialysis UF 4550 ml # Voids 1 # Bowel Movements 2 1 Laboratory Tests 07/10/17 08:35: White Blood Count 7.2, Red Blood Count 3.14L, Hemoglobin 9.8L, Hematocrit 33.2L , Mean Corpuscular Volume 106H, Mean Corpuscular Hemoglobin 31.3H, Mean Corpuscular Hemoglobin Concent 29.6L, Red Cell Distribution Width 19.9H, Platelet Count 91L, Mean Platelet Volume 7.9, Neutrophils (%) (Auto) , Lymphocytes (%) (Auto) , Monocytes (%) (Auto) , Eosinophils (%) (Auto) , Basophils (%) (Auto) , Differential Total Cells Counted 100, Neutrophils % ( Manual) 38L, Lymphocytes % (Manual) 25, Monocytes % (Manual) 23H, Eosinophils % (Manual) 14H, Basophils % (Manual) 0, Band Neutrophils 0, Platelet Estimate DecreasedL, Platelet Morphology Normal, Polychromasia 1+, Anisocytosis 1+, Sodium Level 139, Potassium Level 4.7, Chloride Level 97L, Carbon Dioxide Level 31, Anion Gap 11, Blood Urea Nitrogen 52H, Creatinine 11.2H, Estimat Glomerular Filtration Rate 5.7, Glucose Level 80, Calcium Level 9.3 07/10/17 09:22: Prothrombin Time 20.4H, Prothromb Time International Ratio 1.9H 07/10/17 10:00: Body Fluid Source Right upper lobe, Body Fluid Volume 30, Body Fluid Appearance Slightly cloudy, Body Fluid RBC 141, Body Fluid Total Nucleated Cells 141, Body Fluid Polynuclear WBCs (%) 62, Body Fluid Mononuclear WBCs (%) 23, Body Fluid Mesothelial Cells (%) 15, Aspergillus galactomannan Antigen [Pending] Height (Feet): 5 Height (Inches): 7.00 Weight (Pounds): 233 Cardiovascular: tachycardia, arrhythmia Respiratory/Chest: decreased breath sounds Abdomen: distended Objective no change LIAM MONTELONGO Jul 10, 2017 13:13
[2017-07-10 13:39] LABS: PHOSPHORUS 5.6 MG/DL (2.5-4.9)
--- NOTE | 2017-07-10 13:45 | Operative Note - Dictated ---
DATE OF OPERATION: 07/10/2017 PREOPERATIVE DIAGNOSIS: Right upper lobe cavity. POSTOPERATIVE DIAGNOSIS: Right upper lobe cavity. OPERATION: Flexible fiberoptic bronchoscopy with bronchoalveolar lavage, right upper lobe. INDICATION: Right upper lobe cavity. OPERATIVE FINDINGS: Normal upper airways and tracheobronchial anatomy. No endobronchial lesions. Mild mucopurulent secretions mainly emanating from the right upper lobe. No excessive friability. SPECIMENS: Right upper lobe BAL. COMPLICATIONS: None. ANESTHESIA: General endotracheal anesthesia. ANESTHESIOLOGIST: Curt Simpson M.D. DESCRIPTION OF PROCEDURE: After informed consent was obtained, the patient was identified. A formal time-out was performed. The patient was orally intubated by anesthesia. He then underwent endotracheal anesthesia. The bronchoscope was advanced through the endotracheal tube. The airways surveillance was done. There were no endobronchial lesions. BAL was done of the right upper lobe and sent off. The patient tolerated the procedure without complication. The remainder of the procedure was uncomplicated. The bronchoscope was withdrawn. DISPOSITION: PACU. ESTIMATED BLOOD LOSS: None. Please note, I was only the bronchoscopist in this case, Dr. Morgan, is the customer support technician, who will follow up all BAL studies. Mani Cassidy JOB#: [id number] CC:
--- NOTE | 2017-07-10 15:13 | Pulmonology Progress Note ---
Assessment/Plan Problems: (1) Respiratory failure (2) Pneumonia (3) Hemoptysis (4) Anemia (5) ESRD (end stage renal disease) on dialysis (6) HTN (hypertension) Assessment/Plan bronchoscopy done continue telemetry, cardizem IV prn Heart rate better slowly improving cxr slighly better onNC clinically better HD by fiberglasser prbc prn on anti TB meds wtih IV Amikacin might be able to dc anti-tb if bronchoscopy is negative Subjective ROS Limited/Unobtainable: No Constitutional: Reports: no symptoms HEENT: Repors: no symptoms Allergies: Coded Allergies: IODINE AND IODIDE CONTAINING PRODUC (Verified Allergy, Mild, itching and pruritis, 06/25/17) Uncoded Allergies: CONTRAST/DYE (Allergy, Intermediate, PRURITIS AND ITCHING, 06/25/17) Objective Last 24 Hour Vital Signs Date Time Temp Pulse Resp B/P (MAP) Pulse Ox O2 Delivery O2 Flow Rate FiO2 07/10/17 12:47 98.0 07/10/17 12:17 98.0 07/10/17 12:15 133 125/97 07/10/17 12:00 133 07/10/17 11:15 98.0 133 31 125/97 100 Simple Mask 8.0 98.0 07/10/17 11:00 132 35 131/94 100 Simple Mask 8.0 07/10/17 10:50 132 28 119/99 100 Simple Mask 8.0 07/10/17 10:45 207.5 124 26 98 07/10/17 10:42 131 35 122/95 100 Simple Mask 8.0 07/10/17 10:37 131 36 120/79 100 Simple Mask 8.0 07/10/17 10:32 97.6 130 36 113/86 100 Simple Mask 8.0 97.6 07/10/17 08:00 132 07/10/17 07:50 94 Nasal Cannula 2.0 28 07/10/17 07:50 Nasal Cannula 2.0 28 07/10/17 07:49 134 22 Nasal Cannula 2.0 28 07/10/17 04:00 121 07/10/17 04:00 98.1 127 24 115/82 100 Nasal Cannula 3.0 98.1 07/10/17 00:00 98.1 133 22 104/74 94 Nasal Cannula 3.0 98.1 07/09/17 23:27 131 07/09/17 22:42 138 120/75 07/09/17 21:00 69 97/62 07/09/17 20:21 Nasal Cannula 3.0 07/09/17 20:16 Nasal Cannula 3.0 07/09/17 20:08 97.8 137 28 106/66 Nasal Cannula 3.0 97.8 07/09/17 19:38 125 07/09/17 18:31 136 26 Nasal Cannula 2.0 28 07/09/17 18:31 96 Nasal Cannula 2.0 28 07/09/17 18:31 Nasal Cannula 2.0 28 07/09/17 16:44 97.5 116 20 114/79 96 97.5 07/09/17 16:00 123 07/09/17 16:00 97.5 122 28 114/79 Nasal Cannula 3.0 97.5 07/09/17 16:00 Nasal Cannula 3.0 Intake and Output 07/09/17 07/10/17 19:00 07:00 Intake Total 480 ml 240 ml Output Total 4750 ml Balance 480 ml -4510 ml Intake Oral 480 ml 240 ml Output Urine Total 200 ml Hemodialysis UF 4550 ml # Voids 1 # Bowel Movements 2 1 Objective General Appearance: WD/WN HEENT: normocephalic, atraumatic, anicteric Respiratory/Chest: loud rhonchi Cardiovascular: normal peripheral pulses, normal rate, regular rhythm Abdomen: normal bowel sounds, soft, non tender, no organomegaly Genitourinary: normal external genitalia Extremities: no cyanosis Skin: no rash, no lesions Neurologic/Psychiatric: academic counselor 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, no motor/sensory deficits Lymphatic: no neck adenopathy, no groin adenopathy Laboratory Tests 07/10/17 08:35: White Blood Count 7.2, Red Blood Count 3.14L, Hemoglobin 9.8L, Hematocrit 33.2L , Mean Corpuscular Volume 106H, Mean Corpuscular Hemoglobin 31.3H, Mean Corpuscular Hemoglobin Concent 29.6L, Red Cell Distribution Width 19.9H, Platelet Count 91L, Mean Platelet Volume 7.9, Neutrophils (%) (Auto) , Lymphocytes (%) (Auto) , Monocytes (%) (Auto) , Eosinophils (%) (Auto) , Basophils (%) (Auto) , Differential Total Cells Counted 100, Neutrophils % ( Manual) 38L, Lymphocytes % (Manual) 25, Monocytes % (Manual) 23H, Eosinophils % (Manual) 14H, Basophils % (Manual) 0, Band Neutrophils 0, Platelet Estimate DecreasedL, Platelet Morphology Normal, Polychromasia 1+, Anisocytosis 1+, Sodium Level 139, Potassium Level 4.7, Chloride Level 97L, Carbon Dioxide Level 31, Anion Gap 11, Blood Urea Nitrogen 52H, Creatinine 11.2H, Estimat Glomerular Filtration Rate 5.7, Glucose Level 80, Uric Acid 7.6H, Calcium Level 9.3, Phosphorus Level 5.6H 07/10/17 09:22: Prothrombin Time 20.4H, Prothromb Time International Ratio 1.9H 07/10/17 10:00: Body Fluid Source Right upper lobe, Body Fluid Volume 30, Body Fluid Appearance Slightly cloudy, Body Fluid RBC 141, Body Fluid Total Nucleated Cells 141, Body Fluid Polynuclear WBCs (%) 62, Body Fluid Mononuclear WBCs (%) 23, Body Fluid Mesothelial Cells (%) 15, Aspergillus galactomannan Antigen [Pending] Current Medications Medications (Trade) Dose Ordered Sig/Jose Route PRN Reason Start Time Stop Time Status Last Admin Dose Admin Acetaminophen (Tylenol) 650 mg Q4H PRN ORAL Mild Pain (Pain Scale 1-3) 07/10/17 11:00 07/10/17 17:00 Alprazolam (Xanax) 2 mg DAILYPRN PRN ORAL For Anxiety 07/09/17 15:15 07/16/17 15:14 07/10/17 01:50 Amikacin Protocol (Amikacin pharmacy to dose) 1 ea DAILY PRN MISC Per rx protocol 07/06/17 09:00 08/03/17 15:14 Amikacin Sulfate 1000 mg/Dextrose 114 ml @ 228 mls/hr FRI-WED-FRI IV 07/07/17 21:00 07/11/17 20:59 07/09/17 21:29 Apixaban (Eliquis) 2.5 mg BID ORAL 07/06/17 18:00 08/05/17 17:59 07/10/17 12:15 Carisoprodol (Soma) 350 mg Q6H PRN ORAL MUSCLE SPASMS 07/06/17 07:00 07/14/17 18:59 07/08/17 01:53 Chlorhexidine Gluconate (Mireille-Hex 2%) 1 applic DAILY@1999 TOPIC 07/06/17 20:00 08/02/17 19:59 07/09/17 21:29 Clonidine HCl (Catapres Tab) 0.1 mg Q4H PRN ORAL bp over 160 syst 07/06/17 07:30 07/19/17 11:29 Dextrose (Dextrose 50%) 25 ml STAT PRN IV HYPOGLYCEMIA 07/09/17 08:30 08/08/17 08:29 Dextrose (Dextrose 50%) 50 ml STAT PRN IV Hypoglycemia 07/09/17 08:30 07/14/17 18:59 Diltiazem HCl (Cardizem) 10 mg Q1H PRN IVP tachycardia 07/08/17 15:30 08/07/17 15:29 07/09/17 22:42 Docusate Sodium (Colace) 100 mg THREE TIMES A DAY ORAL 07/06/17 09:00 07/18/17 13:00 07/10/17 12:15 Ethambutol HCl (Myambutol) 1,000 mg 3XW ORAL 07/07/17 09:00 07/18/17 23:59 07/09/17 09:09 Fentanyl Citrate (Sublimaze 100 mcg/2 mL) 25 mcg Q10M PRN IV Moderate Pain (Pain Scale 4-6) 07/10/17 11:00 07/10/17 17:00 Hydromorphone HCl (Dilaudid) 2 mg Q4H PRN IVP Severe Pain (Pain Scale 7-10) 07/09/17 12:45 07/16/17 12:44 07/10/17 12:17 Levofloxacin (Levaquin) 750 mg EVERY OTHER DAY@1999 ORAL 07/07/17 20:00 07/14/17 19:59 07/09/17 21:14 Lisinopril (Prinivil) 20 mg BID ORAL 07/06/17 09:00 07/19/17 18:00 07/07/17 18:39 Metoprolol Tartrate (Lopressor) 5 mg Q5MIN X 3 IVP 07/06/17 14:15 08/05/17 14:14 07/07/17 00:38 Metoprolol Tartrate (Lopressor) 75 mg Q12HR ORAL 07/08/17 21:00 08/07/17 20:59 07/10/17 12:15 Midazolam HCl (Versed 2mg/2ml vial) 1 mg Q15M PRN IVP For Anxiety 07/10/17 11:00 07/10/17 17:00 Nitroglycerin (Ntg) 0.4 mg Q5M PRN SL Prn Chest Pain 07/06/17 04:00 07/19/17 11:29 Ondansetron HCl (Zofran) 4 mg Q6H PRN IVP Nausea & Vomiting 07/06/17 06:30 07/14/17 18:29 07/09/17 21:14 Pantoprazole (Protonix) 40 mg ACBREAKFAST ORAL 07/06/17 06:30 07/15/17 06:29 07/09/17 06:55 Piperacillin Sod/ Tazobactam Sod 2.25 gm/Dextrose 55 ml @ 110 mls/hr Q8HR IVPB 07/08/17 14:00 07/13/17 13:59 07/10/17 13:31 Polyethylene Glycol (Miralax) 17 gm DAILYPRN PRN ORAL Constipation 07/06/17 18:30 07/14/17 18:29 Promethazine HCl/ Codeine (Phenergan with Codeine) 5 ml Q4H PRN ORAL For Cough 07/06/17 06:30 07/22/17 10:30 07/08/17 01:56 Sevelamer Carbonate (Renvela) 2,400 mg THREE TIMES A DAY ORAL 07/06/17 09:00 07/16/17 18:44 07/10/17 12:14 Christine Morgan MD Jul 10, 2017 15:13
--- NOTE | 2017-07-10 18:25 | Cardiology Progress Note ---
Assessment/Plan Assessment/Plan pleuritic chest pain neg recent sig perfusion abn; systolic dysfunction on mild degree involving the septum cavitating lung lesion improved on recent ct esrd htn anemia icd hx biotonix , interrogated 07/09/19 edema afib thrombocytopenia tachy still will addd cardizem atc plt low is on eliquis for stroke prevention venous duplex neg echo reviewed swma in septum (possible) as tech difficult study ef 45% dialysis per dr grimaldo may need more fluid removal had almost 5 liter removed yest will need more removed afb smear neg ct noted icd interrogated yest no shock fucntion fine Subjective Cardiovascular: Denies: chest pain Respiratory: Denies: shortness of breath Genitourinary: Denies: burning Objective Last 24 Hour Vital Signs Date Time Temp Pulse Resp B/P (MAP) Pulse Ox O2 Delivery O2 Flow Rate FiO2 07/10/17 17:46 97.0 07/10/17 17:16 97.0 07/10/17 17:16 117/79 07/10/17 16:44 97.0 07/10/17 16:00 130 07/10/17 16:00 97.0 128 22 117/79 93 Room Air 97.0 07/10/17 15:45 98.0 07/10/17 12:17 98.0 07/10/17 12:15 133 125/97 07/10/17 12:00 133 07/10/17 11:15 98.0 133 31 125/97 100 Simple Mask 8.0 98.0 07/10/17 11:00 132 35 131/94 100 Simple Mask 8.0 07/10/17 10:50 132 28 119/99 100 Simple Mask 8.0 07/10/17 10:45 207.5 124 26 98 07/10/17 10:42 131 35 122/95 100 Simple Mask 8.0 07/10/17 10:37 131 36 120/79 100 Simple Mask 8.0 07/10/17 10:32 97.6 130 36 113/86 100 Simple Mask 8.0 97.6 07/10/17 08:00 132 07/10/17 07:50 94 Nasal Cannula 2.0 28 07/10/17 07:50 Nasal Cannula 2.0 28 07/10/17 07:49 134 22 Nasal Cannula 2.0 28 07/10/17 04:00 121 07/10/17 04:00 98.1 127 24 115/82 100 Nasal Cannula 3.0 98.1 07/10/17 00:00 98.1 133 22 104/74 94 Nasal Cannula 3.0 98.1 07/09/17 23:27 131 07/09/17 22:42 138 120/75 07/09/17 21:00 69 97/62 07/09/17 20:21 Nasal Cannula 3.0 07/09/17 20:16 Nasal Cannula 3.0 07/09/17 20:08 97.8 137 28 106/66 Nasal Cannula 3.0 97.8 07/09/17 19:38 125 07/09/17 18:31 136 26 Nasal Cannula 2.0 28 07/09/17 18:31 96 Nasal Cannula 2.0 28 07/09/17 18:31 Nasal Cannula 2.0 28 General Appearance: no apparent distress, alert Cardiovascular: normal rate, tachycardia Respiratory/Chest: lungs clear Abdomen: normal bowel sounds, non tender, soft Extremities: severe edema Intake and Output 07/09/17 07/10/17 19:00 07:00 Intake Total 480 ml 240 ml Output Total 4750 ml Balance 480 ml -4510 ml Intake Oral 480 ml 240 ml Output Urine Total 200 ml Hemodialysis UF 4550 ml # Voids 1 # Bowel Movements 2 1 Laboratory Tests Test 07/10/17 08:35 07/10/17 09:22 07/10/17 10:00 White Blood Count 7.2 K/UL (4.8-10.8) Red Blood Count 3.14 M/UL (4.70-6.10) L Hemoglobin 9.8 G/DL (14.2-18.0) L Hematocrit 33.2 % (42.0-52.0) L Mean Corpuscular Volume 106 FL (80-99) H Mean Corpuscular Hemoglobin 31.3 PG (27.0-31.0) H Mean Corpuscular Hemoglobin Concent 29.6 G/DL (32.0-36.0) L Red Cell Distribution Width 19.9 % (11.6-14.8) H Platelet Count 91 K/UL (150-450) L Mean Platelet Volume 7.9 FL (6.5-10.1) Neutrophils (%) (Auto) % (45.0-75.0) Lymphocytes (%) (Auto) % (20.0-45.0) Monocytes (%) (Auto) % (1.0-10.0) Eosinophils (%) (Auto) % (0.0-3.0) Basophils (%) (Auto) % (0.0-2.0) Differential Total Cells Counted 100 Neutrophils % (Manual) 38 % (45-75) L Lymphocytes % (Manual) 25 % (20-45) Monocytes % (Manual) 23 % (1-10) H Eosinophils % (Manual) 14 % (0-3) H Basophils % (Manual) 0 % (0-2) Band Neutrophils 0 % (0-8) Platelet Estimate Decreased L Platelet Morphology Normal Polychromasia 1+ Anisocytosis 1+ Sodium Level 139 MMOL/L (136-145) Potassium Level 4.7 MMOL/L (3.5-5.1) Chloride Level 97 MMOL/L (98-107) L Carbon Dioxide Level 31 MMOL/L (21-32) Anion Gap 11 mmol/L (5-15) Blood Urea Nitrogen 52 mg/dL (7-18) H Creatinine 11.2 MG/DL (0.55-1.30) H Estimat Glomerular Filtration Rate 5.7 mL/min (>60) Glucose Level 80 MG/DL (74-106) Uric Acid 7.6 MG/DL (2.6-7.2) H Calcium Level 9.3 MG/DL (8.5-10.1) Phosphorus Level 5.6 MG/DL (2.5-4.9) H Prothrombin Time 20.4 SEC (9.30-11.50) H Prothromb Time International Ratio 1.9 (0.9-1.1) H Body Fluid Source Right upper lobe Body Fluid Volume 30 mL Body Fluid Appearance Slightly cloudy Body Fluid RBC 141 /CUMM Body Fluid Total Nucleated Cells 141 /CUMM Body Fluid Polynuclear WBCs (%) 62 % Body Fluid Mononuclear WBCs (%) 23 % Body Fluid Mesothelial Cells (%) 15 % Aspergillus galactomannan Antigen Pending PRECIOUS GARCIA Jul 10, 2017 18:25
--- NOTE | 2017-07-10 18:37 | Internal Med Progress Note ---
Subjective Date of Service: Jul 10, 2017 Physician Name Zoey Pires Attending Physician Chaitanya Weinstein MD Current Medications Medications (Trade) Dose Ordered Sig/Jose Route PRN Reason Start Time Stop Time Status Last Admin Dose Admin Alprazolam (Xanax) 2 mg DAILYPRN PRN ORAL For Anxiety 07/09/17 15:15 07/16/17 15:14 07/10/17 01:50 Amikacin Protocol (Amikacin pharmacy to dose) 1 ea DAILY PRN MISC Per rx protocol 07/06/17 09:00 08/03/17 15:14 Amikacin Sulfate 1000 mg/Dextrose 114 ml @ 228 mls/hr FRI-FRI-FRI IV 07/07/17 21:00 07/11/17 20:59 07/09/17 21:29 Apixaban (Eliquis) 2.5 mg BID ORAL 07/06/17 18:00 08/05/17 17:59 07/10/17 17:15 Carisoprodol (Soma) 350 mg Q6H PRN ORAL MUSCLE SPASMS 07/06/17 07:00 07/14/17 18:59 07/10/17 15:45 Chlorhexidine Gluconate (Mireille-Hex 2%) 1 applic DAILY@2000 TOPIC 07/06/17 20:00 08/02/17 19:59 07/09/17 21:29 Clonidine HCl (Catapres Tab) 0.1 mg Q4H PRN ORAL bp over 160 syst 07/06/17 07:30 07/19/17 11:29 Dextrose (Dextrose 50%) 25 ml STAT PRN IV HYPOGLYCEMIA 07/09/17 08:30 08/08/17 08:29 Dextrose (Dextrose 50%) 50 ml STAT PRN IV Hypoglycemia 07/09/17 08:30 07/14/17 18:59 Diltiazem HCl (Cardizem) 10 mg Q1H PRN IVP tachycardia 07/08/17 15:30 08/07/17 15:29 07/09/17 22:42 Diltiazem HCl (Cardizem) 30 mg EVERY 6 HOURS ORAL 07/10/17 18:30 08/09/17 18:29 UNV Docusate Sodium (Colace) 100 mg THREE TIMES A DAY ORAL 07/06/17 09:00 07/18/17 13:00 07/10/17 17:15 Ethambutol HCl (Myambutol) 1,000 mg 3XW ORAL 07/07/17 09:00 07/18/17 23:59 07/09/17 09:09 Hydromorphone HCl (Dilaudid) 2 mg Q4H PRN IVP Severe Pain (Pain Scale 7-10) 07/09/17 12:45 07/16/17 12:44 07/10/17 17:16 Levofloxacin (Levaquin) 750 mg EVERY OTHER DAY@2000 ORAL 07/07/17 20:00 07/14/17 19:59 07/09/17 21:14 Lisinopril (Prinivil) 20 mg BID ORAL 07/06/17 09:00 07/19/17 18:00 07/10/17 17:16 Metoprolol Tartrate (Lopressor) 5 mg Q5MIN X 3 IVP 07/06/17 14:15 08/05/17 14:14 07/07/17 00:38 Metoprolol Tartrate (Lopressor) 75 mg Q12HR ORAL 07/08/17 21:00 08/07/17 20:59 07/10/17 12:15 Nitroglycerin (Ntg) 0.4 mg Q5M PRN SL Prn Chest Pain 07/06/17 04:00 07/19/17 11:29 Ondansetron HCl (Zofran) 4 mg Q6H PRN IVP Nausea & Vomiting 07/06/17 06:30 07/14/17 18:29 07/10/17 15:45 Pantoprazole (Protonix) 40 mg ACBREAKFAST ORAL 07/06/17 06:30 07/15/17 06:29 07/09/17 06:55 Piperacillin Sod/ Tazobactam Sod 2.25 gm/Dextrose 55 ml @ 110 mls/hr Q8HR IVPB 07/08/17 14:00 07/13/17 13:59 07/10/17 13:31 Polyethylene Glycol (Miralax) 17 gm DAILYPRN PRN ORAL Constipation 07/06/17 18:30 07/14/17 18:29 Promethazine HCl/ Codeine (Phenergan with Codeine) 5 ml Q4H PRN ORAL For Cough 07/06/17 06:30 07/22/17 10:30 07/08/17 01:56 Sevelamer Carbonate (Renvela) 2,400 mg THREE TIMES A DAY ORAL 07/06/17 09:00 07/16/17 18:44 07/10/17 17:15 Allergies: Coded Allergies: IODINE AND IODIDE CONTAINING PRODUC (Verified Allergy, Mild, itching and pruritis, 06/25/17) Uncoded Allergies: CONTRAST/DYE (Allergy, Intermediate, PRURITIS AND ITCHING, 06/25/17) ROS Limited/Unobtainable: No Constitutional: Reports: no symptoms HEENT: Reports: no symptoms Cardiovascular: Reports: no symptoms Respiratory: Reports: shortness of breath Gastrointestinal/Abdominal: Reports: no symptoms Genitourinary: Reports: no symptoms Neurologic/Psychiatric: Reports: no symptoms Subjective 57 YO M admitted with chest pain and shortness of breath. Now pneumonia and candelaria heart failure. Back on nasal canula. Cover for Int Misbah-Dr Weinstein. Now atrial flutter improving ventricular rate. C/O diarrhea Objective Last Vital Signs Date Time Temp Pulse Resp B/P (MAP) Pulse Ox O2 Delivery O2 Flow Rate FiO2 07/10/17 17:46 97.0 07/10/17 17:16 117/79 07/10/17 16:00 130 07/10/17 16:00 22 93 Room Air 07/10/17 11:15 8.0 07/10/17 07:50 28 Laboratory Tests Test 07/10/17 08:35 07/10/17 09:22 07/10/17 10:00 White Blood Count 7.2 K/UL (4.8-10.8) Red Blood Count 3.14 M/UL (4.70-6.10) L Hemoglobin 9.8 G/DL (14.2-18.0) L Hematocrit 33.2 % (42.0-52.0) L Mean Corpuscular Volume 106 FL (80-99) H Mean Corpuscular Hemoglobin 31.3 PG (27.0-31.0) H Mean Corpuscular Hemoglobin Concent 29.6 G/DL (32.0-36.0) L Red Cell Distribution Width 19.9 % (11.6-14.8) H Platelet Count 91 K/UL (150-450) L Mean Platelet Volume 7.9 FL (6.5-10.1) Neutrophils (%) (Auto) % (45.0-75.0) Lymphocytes (%) (Auto) % (20.0-45.0) Monocytes (%) (Auto) % (1.0-10.0) Eosinophils (%) (Auto) % (0.0-3.0) Basophils (%) (Auto) % (0.0-2.0) Differential Total Cells Counted 100 Neutrophils % (Manual) 38 % (45-75) L Lymphocytes % (Manual) 25 % (20-45) Monocytes % (Manual) 23 % (1-10) H Eosinophils % (Manual) 14 % (0-3) H Basophils % (Manual) 0 % (0-2) Band Neutrophils 0 % (0-8) Platelet Estimate Decreased L Platelet Morphology Normal Polychromasia 1+ Anisocytosis 1+ Sodium Level 139 MMOL/L (136-145) Potassium Level 4.7 MMOL/L (3.5-5.1) Chloride Level 97 MMOL/L (98-107) L Carbon Dioxide Level 31 MMOL/L (21-32) Anion Gap 11 mmol/L (5-15) Blood Urea Nitrogen 52 mg/dL (7-18) H Creatinine 11.2 MG/DL (0.55-1.30) H Estimat Glomerular Filtration Rate 5.7 mL/min (>60) Glucose Level 80 MG/DL (74-106) Uric Acid 7.6 MG/DL (2.6-7.2) H Calcium Level 9.3 MG/DL (8.5-10.1) Phosphorus Level 5.6 MG/DL (2.5-4.9) H Prothrombin Time 20.4 SEC (9.30-11.50) H Prothromb Time International Ratio 1.9 (0.9-1.1) H Body Fluid Source Right upper lobe Body Fluid Volume 30 mL Body Fluid Appearance Slightly cloudy Body Fluid RBC 141 /CUMM Body Fluid Total Nucleated Cells 141 /CUMM Body Fluid Polynuclear WBCs (%) 62 % Body Fluid Mononuclear WBCs (%) 23 % Body Fluid Mesothelial Cells (%) 15 % Aspergillus galactomannan Antigen Pending Intake and Output 07/09/17 07/10/17 19:00 07:00 Intake Total 480 ml 240 ml Output Total 4750 ml Balance 480 ml -4510 ml Intake Oral 480 ml 240 ml Output Urine Total 200 ml Hemodialysis UF 4550 ml # Voids 1 # Bowel Movements 2 1 Objective General Appearance: WD/WN, alert, moderate distress EENT: PERRL/EOMI, normal ENT inspection Neck: non-tender, normal alignment, supple, normal inspection Cardiovascular: Tachycardia; normal peripheral pulses, normal rate, regular rhythm, no gallop/murmur, no JVD Respiratory/Chest: Nasal canula; respiratory distress, crackles/rales, rhonchi - bilaterally, expiratory wheezing Abdomen: normal bowel sounds, non tender, soft, no organomegaly, no mass Extremities: normal range of motion Neurologic: clinical education 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 (2) Respiratory failure Assessment & Plan: CHF and Pneumonia. Currently on nasal canula. See pulmonay note. (3) Pleuritic chest pain (4) Hemoptysis Assessment & Plan: Due to pneumonia (5) Pneumonia Assessment & Plan: Providencia and pseudamonas. RUL and cavitary. Concerning for TB. Await AFB cultures-see ID consult. Continue vanco and ethambutol per ID. Continue rocephin, micafungin, flagyl, amikacin, levaquin, and rifampin (6) Shortness of breath (7) ESRD (end stage renal disease) on dialysis Assessment & Plan: See nephrology note. Next Hemodialysis 07/09/17 per nephrology (8) Hyperkalemia Assessment & Plan: Due to renal failure. Hemodialysis 06/12/17 per nephrology (9) COPD (chronic obstructive pulmonary disease) (10) HTN (hypertension) Assessment & Plan: Continue coreg and lisinopril. (11) CHF (congestive heart failure) (12) Elevated troponin Assessment & Plan: ?due to renal failure? See cardiology note. (13) Intractable abdominal pain Assessment & Plan: See surgery note. Await CT abdomen (14) Conjunctivitis Assessment & Plan: start tobramycin (15) Diarrhea Assessment & Plan: Send stool for C. Diff Assessment/Plan Discharge planning - coordination with [facility] pending ZOEY PIRES Jul 10, 2017 18:37
[2017-07-10] MEDS: dilTIAZem HCl 30mg tab ORAL SCH (20:47)
[2017-07-10] MEDS: Dyna-Hex 2% Top Sol 2oz TOPIC SCH (20:50)
--- NOTE | 2017-07-10 23:55 | General Progress Note ---
Assessment/Plan Assessment/Plan #. Thrombocytopenia. --> Hepatitis C ab ++, PCR - --> Monitor platelet level. Transfuse if platelet count <20k --> Levels improving. Continue to trend daily. #. Left leg dvt --> acute onset, will need to review final duplex results --> begin on apixaban daily x 3 months, low h/h will need to monitor closely --> okay to change to different anticoagulant if renal clearance an issue --> If h/h downtrends below 7.5, consider ivc filter placement. --> Hemoglobin currently >7.5 #. Anemia secondary to chronic disease. --> Hemoglobin levels have remained above goal. No blood transfusion required at this time. --> S/P abd CAT scan revealing evidence of hepatic cirrhosis. --> Continue to closely monitor and trend cbc daily. --> Anemia workup completed and reviewed. Iron 42, TIBC 180, Ferritin 593, B12 876. --> Ferritin is >500, hgb goal is >7 --> Anemia w/u has been reviewed --> ++Occult blood. Consider GI Services and Recs. # Hepatosplenomegaly. Ascites. There is also evidence of generalized anasarca, with pleural fluid and generalized subcutaneous edema --> Abd pain improved on pain management #. Anemia of kidney disease --> HD as needed per nephrology team --> Monitor closely. --> Does not require iron at this time #. Generalized body ache related to fluid overload. #. End-stage renal disease, on hemodialysis as needed --> Monitor. S/P HD. #. Cardiomegaly. S/P Chest Xray --> Persistent but slightly decreased size of known right lung cavitary lesion. --> Persistent extensive interstitial and bilateral airspace opacities. --> Edema present. Subjective Date patient seen: Jul 09, 2017 Constitutional: Denies: no symptoms, chills, diaphoresis, fever, malaise, weakness, other HEENT: Denies: no symptoms, eye pain, blurred vision, tearing, double vision, ear pain, ear discharge, nose pain, nose congestion, throat pain, throat swelling, mouth pain, mouth swelling, other Cardiovascular: Denies: no symptoms, chest pain, edema, irregular heart rate, lightheadedness, palpitations, syncope, other Respiratory: Denies: no symptoms, cough, orthopnea, shortness of breath, SOB with excertion, SOB at rest, sputum, stridor, wheezing, other Gastrointestinal/Abdominal: Denies: no symptoms, abdomen distended, abdominal pain, black stools, tarry stools, blood in stool, constipated, diarrhea, difficulty swallowing, nausea, poor appetite, poor fluid intake, rectal bleeding , vomiting, other Genitourinary: Denies: no symptoms, burning, discharge, frequency, flank pain, hematuria, incontinence, pain, urgency, other Neurologic/Psychiatric: Denies: no symptoms, anxiety, depressed, emotional problems, headache, numbness, paresthesia, pre-existing deficit, seizure, tingling, tremors, weakness, other Hematologic/Lymphatic: Reports: anemia Allergies: Coded Allergies: IODINE AND IODIDE CONTAINING PRODUC (Verified Allergy, Mild, itching and pruritis, 06/25/17) Uncoded Allergies: CONTRAST/DYE (Allergy, Intermediate, PRURITIS AND ITCHING, 06/25/17) Subjective Poor prognosis. Hgb and platelet improved from yesterday. Objective Last 24 Hour Vital Signs Date Time Temp Pulse Resp B/P (MAP) Pulse Ox O2 Delivery O2 Flow Rate FiO2 07/10/17 20:50 125 121/90 07/10/17 20:47 125 121/90 07/10/17 20:01 97.0 125 20 121/90 95 Nasal Cannula 4.0 97.0 07/10/17 20:00 97.0 125 20 121/90 95 Nasal Cannula 2.0 97.0 07/10/17 19:28 93 Nasal Cannula 4.0 36 07/10/17 19:28 Nasal Cannula 4.0 36 07/10/17 19:27 121 20 Nasal Cannula 4.0 36 07/10/17 17:46 97.0 07/10/17 17:16 97.0 07/10/17 17:16 117/79 07/10/17 16:44 97.0 07/10/17 16:00 130 07/10/17 16:00 97.0 128 22 117/79 93 Room Air 97.0 07/10/17 15:45 98.0 07/10/17 12:17 98.0 07/10/17 12:15 133 125/97 07/10/17 12:00 133 07/10/17 11:15 98.0 133 31 125/97 100 Simple Mask 8.0 98.0 07/10/17 11:00 132 35 131/94 100 Simple Mask 8.0 07/10/17 10:50 132 28 119/99 100 Simple Mask 8.0 07/10/17 10:45 207.5 124 26 98 07/10/17 10:42 131 35 122/95 100 Simple Mask 8.0 07/10/17 10:37 131 36 120/79 100 Simple Mask 8.0 07/10/17 10:32 97.6 130 36 113/86 100 Simple Mask 8.0 97.6 07/10/17 08:00 132 07/10/17 07:50 94 Nasal Cannula 2.0 28 07/10/17 07:50 Nasal Cannula 2.0 28 07/10/17 07:49 134 22 Nasal Cannula 2.0 28 07/10/17 04:00 121 07/10/17 04:00 98.1 127 24 115/82 100 Nasal Cannula 3.0 98.1 07/10/17 00:00 98.1 133 22 104/74 94 Nasal Cannula 3.0 98.1 Intake and Output 07/09/17 07/10/17 19:00 07:00 Intake Total 480 ml 240 ml Output Total 4750 ml Balance 480 ml -4510 ml Intake Oral 480 ml 240 ml Output Urine Total 200 ml Hemodialysis UF 4550 ml # Voids 1 # Bowel Movements 2 1 Laboratory Tests 07/10/17 08:35: White Blood Count 7.2, Red Blood Count 3.14L, Hemoglobin 9.8L, Hematocrit 33.2L , Mean Corpuscular Volume 106H, Mean Corpuscular Hemoglobin 31.3H, Mean Corpuscular Hemoglobin Concent 29.6L, Red Cell Distribution Width 19.9H, Platelet Count 91L, Mean Platelet Volume 7.9, Neutrophils (%) (Auto) , Lymphocytes (%) (Auto) , Monocytes (%) (Auto) , Eosinophils (%) (Auto) , Basophils (%) (Auto) , Differential Total Cells Counted 100, Neutrophils % ( Manual) 38L, Lymphocytes % (Manual) 25, Monocytes % (Manual) 23H, Eosinophils % (Manual) 14H, Basophils % (Manual) 0, Band Neutrophils 0, Platelet Estimate DecreasedL, Platelet Morphology Normal, Polychromasia 1+, Anisocytosis 1+, Sodium Level 139, Potassium Level 4.7, Chloride Level 97L, Carbon Dioxide Level 31, Anion Gap 11, Blood Urea Nitrogen 52H, Creatinine 11.2H, Estimat Glomerular Filtration Rate 5.7, Glucose Level 80, Uric Acid 7.6H, Calcium Level 9.3, Phosphorus Level 5.6H 07/10/17 09:22: Prothrombin Time 20.4H, Prothromb Time International Ratio 1.9H 07/10/17 10:00: Body Fluid Source Right upper lobe, Body Fluid Volume 30, Body Fluid Appearance Slightly cloudy, Body Fluid RBC 141, Body Fluid Total Nucleated Cells 141, Body Fluid Polynuclear WBCs (%) 62, Body Fluid Mononuclear WBCs (%) 23, Body Fluid Mesothelial Cells (%) 15, Aspergillus galactomannan Antigen [Pending] Height (Feet): 5 Height (Inches): 7.00 Weight (Pounds): 233 General Appearance: confused Respiratory/Chest: decreased breath sounds Edema: trace edema Irving Parker MD Jul 10, 2017 23:55
[2017-07-11] VITALS (7 sets, daily range): BP systolic 105–123; BP diastolic 56–82
[2017-07-11] MEDS: dilTIAZem HCl 30mg tab ORAL SCH ×6 (00:03→18:09)
[2017-07-11] MEDS: ALPRAZolam 0.5mg tab ORAL PRN (05:47)
[2017-07-11] MEDS: Piperacillin/Tazobactam 2.25 GM in D5W 55 ML IVPB SCH ×3 (05:47→21:28)
[2017-07-11] MEDS: Docusate 100mg cap ORAL SCH ×3 (08:31→17:31)
[2017-07-11] MEDS: Eliquis 2.5mg tablet ORAL SCH ×2 (08:32→17:31)
[2017-07-11] MEDS: Metoprolol 25mg tab ORAL SCH (08:39)
[2017-07-11] MEDS: Lisinopril 20mg tab ORAL SCH ×2 (08:39→17:32)
[2017-07-11 11:04] LABS: HEMATOCRIT 30.9 % (42.0-52.0); HEMOGLOBIN 9.2 G/DL (14.2-18.0); MEAN CORPUSCULAR VOLUME 105 FL (80-99); PLATELET COUNT 101 K/UL (150-450); RED BLOOD COUNT 2.95 M/UL (4.70-6.10); RED CELL DISTRIBUTION WIDTH 19.1 % (11.6-14.8); WHITE BLOOD COUNT 6.5 K/UL (4.8-10.8)
[2017-07-11 11:35] LABS: ALANINE AMINOTRANSFERASE 26 U/L (12-78); ALBUMIN 2.4 G/DL (3.4-5.0); ALBUMIN/GLOBULIN RATIO 0.5 (1.0-2.7); ALKALINE PHOSPHATASE 96 U/L (46-116); ANION GAP 10 mmol/L (5-15); ASPARTATE AMINO TRANSFERASE 67 U/L (15-37); BILIRUBIN,TOTAL 1.7 MG/DL (0.2-1.0); BLOOD UREA NITROGEN 62 mg/dL (7-18); CALCIUM 8.5 MG/DL (8.5-10.1); CARBON DIOXIDE 29 MMOL/L (21-32); CHLORIDE 97 MMOL/L (98-107); CREATININE 12.4 MG/DL (0.55-1.30); POTASSIUM 5.3 MMOL/L (3.5-5.1); SODIUM 136 MMOL/L (136-145)
--- NOTE | 2017-07-11 11:59 | 48 Hour Post Anesthesia Eval ---
Post Anesthesia Evaluation Procedure: Bronchoscopy with brashing Date of Evaluation: Jul 11, 2017 Time of Evaluation: 07:20 Blood Pressure Systolic: 104 0: 79 Pulse Rate: 121 Respiratory Rate: 20 O2 Sat by Pulse Oximetry: 97 Airway: patent Nausea: No Vomiting: No Pain Intensity: 0 Hydration Status: adequate Cardiopulmonary Status: at baseline Mental Status/LOC: patient returned to baseline Post-Anesthesia Complications: 0 Follow-up care needed: N/A - further care as per primary STEVE Viera M.D. Jul 11, 2017 11:58
[2017-07-11 12:00] LABS: BILIRUBIN,DIRECT 1.1 MG/DL (0.0-0.3)
--- NOTE | 2017-07-11 15:35 | Nephrology Progress Note ---
Assessment/Plan Problem List: (1) ESRD (end stage renal disease) on dialysis (2) Shortness of breath (3) Anemia Assessment Anemia ESRD , missed HD on admission , admitted with high K and pulmonary edema Acute respiratory distress due to volume overload elevated troponin r/o ACS h/o COPD ? exacerbation HTN urgency Cardiomyopathy L AICD anemia of chronic kidney disease Hx of CVA Plan Plan: HD next 07/11 Max UF Transfused Phos binders BP meds adjustment Optimize cardiac status per orders Subjective ROS Limited/Unobtainable: No Constitutional: Reports: malaise, weakness Objective Objective Last 24 Hour Vital Signs Date Time Temp Pulse Resp B/P (MAP) Pulse Ox O2 Delivery O2 Flow Rate FiO2 07/11/17 13:22 97.0 07/11/17 12:52 97.0 07/11/17 12:51 124 125/87 07/11/17 12:14 121 20 97 07/11/17 12:00 97.0 121 20 120/74 100 97.0 07/11/17 11:17 124 109/80 07/11/17 11:10 Nasal Cannula 2.0 07/11/17 08:46 Nasal Cannula 4.0 36 07/11/17 08:45 97 Nasal Cannula 4.0 36 07/11/17 08:44 124 22 Nasal Cannula 4.0 07/11/17 08:39 123 109/80 07/11/17 08:39 109/80 07/11/17 08:32 97.5 07/11/17 08:00 97.5 123 20 109/80 93 Nasal Cannula 97.5 07/11/17 08:00 122 07/11/17 05:54 121 104/79 07/11/17 04:01 97.0 126 20 105/77 100 Nasal Cannula 97.0 07/11/17 04:00 125 07/11/17 04:00 97.0 126 19 105/71 100 Nasal Cannula 4.0 97.0 07/11/17 00:03 118 107/77 07/11/17 00:03 97.5 118 24 107/77 94 Nasal Cannula 97.5 07/11/17 00:00 125 07/10/17 20:50 125 121/90 07/10/17 20:47 125 121/90 07/10/17 20:01 97.0 125 20 121/90 95 Nasal Cannula 4.0 97.0 07/10/17 20:00 122 07/10/17 20:00 97.0 125 20 121/90 95 Nasal Cannula 2.0 97.0 07/10/17 19:28 93 Nasal Cannula 4.0 36 07/10/17 19:28 Nasal Cannula 4.0 36 07/10/17 19:27 121 20 Nasal Cannula 4.0 36 07/10/17 17:16 97.0 07/10/17 17:16 117/79 07/10/17 16:44 97.0 07/10/17 16:00 130 07/10/17 16:00 97.0 128 22 117/79 93 Room Air 97.0 07/10/17 15:45 98.0 Intake and Output 07/10/17 07/11/17 19:00 07:00 Intake Total 755 ml 400 ml Output Total 0 ml Balance 755 ml 400 ml Intake Oral 500 ml 400 ml IV Total 255 ml Estimated Blood Loss 0 ml # Bowel Movements 1 1 Laboratory Tests 07/11/17 10:40: White Blood Count 6.5, Red Blood Count 2.95L, Hemoglobin 9.2L, Hematocrit 30.9L , Mean Corpuscular Volume 105H, Mean Corpuscular Hemoglobin 31.3H, Mean Corpuscular Hemoglobin Concent 29.9L, Red Cell Distribution Width 19.1H, Platelet Count 101L, Mean Platelet Volume 7.6, Neutrophils (%) (Auto) , Lymphocytes (%) (Auto) , Monocytes (%) (Auto) , Eosinophils (%) (Auto) , Basophils (%) (Auto) , Differential Total Cells Counted 100, Neutrophils % ( Manual) 46, Lymphocytes % (Manual) 29, Monocytes % (Manual) 16H, Eosinophils % ( Manual) 9H, Basophils % (Manual) 0, Band Neutrophils 0, Platelet Estimate DecreasedL, Platelet Morphology Normal, Polychromasia 2+, Hypochromasia 1+, Anisocytosis 1+, Macrocytosis 2+, Sodium Level 136, Potassium Level 5.3H, Chloride Level 97L, Carbon Dioxide Level 29, Anion Gap 10, Blood Urea Nitrogen 62H, Creatinine 12.4H, Estimat Glomerular Filtration Rate 5.1, Glucose Level 106 , Calcium Level 8.5, Total Bilirubin 1.7H, Direct Bilirubin 1.1H, Aspartate Amino Transf (AST/SGOT) 67H, Alanine Aminotransferase (ALT/SGPT) 26, Alkaline Phosphatase 96, Total Protein 6.9, Albumin 2.4L, Globulin 4.5, Albumin/Globulin Ratio 0.5L Height (Feet): 5 Height (Inches): 7.00 Weight (Pounds): 235 General Appearance: no apparent distress Cardiovascular: tachycardia, arrhythmia Respiratory/Chest: decreased breath sounds Abdomen: distended Objective no change LIAM MONTELONGO Jul 11, 2017 15:35
--- NOTE | 2017-07-11 15:46 | Pulmonology Progress Note ---
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 Subjective ROS Limited/Unobtainable: No Constitutional: Reports: no symptoms HEENT: Repors: no symptoms Respiratory: Reports: no symptoms Cardiovascular: Reports: no symptoms Allergies: Coded Allergies: IODINE AND IODIDE CONTAINING PRODUC (Verified Allergy, Mild, itching and pruritis, 06/25/17) Uncoded Allergies: CONTRAST/DYE (Allergy, Intermediate, PRURITIS AND ITCHING, 06/25/17) Objective Last 24 Hour Vital Signs Date Time Temp Pulse Resp B/P (MAP) Pulse Ox O2 Delivery O2 Flow Rate FiO2 07/11/17 13:22 97.0 07/11/17 12:52 97.0 07/11/17 12:51 124 125/87 07/11/17 12:14 121 20 97 07/11/17 12:00 97.0 121 20 120/74 100 97.0 07/11/17 11:17 124 109/80 07/11/17 11:10 Nasal Cannula 2.0 07/11/17 08:46 Nasal Cannula 4.0 36 07/11/17 08:45 97 Nasal Cannula 4.0 36 07/11/17 08:44 124 22 Nasal Cannula 4.0 07/11/17 08:39 123 109/80 07/11/17 08:39 109/80 07/11/17 08:32 97.5 07/11/17 08:00 97.5 123 20 109/80 93 Nasal Cannula 97.5 07/11/17 08:00 122 07/11/17 05:54 121 104/79 07/11/17 04:01 97.0 126 20 105/77 100 Nasal Cannula 97.0 07/11/17 04:00 125 07/11/17 04:00 97.0 126 19 105/71 100 Nasal Cannula 4.0 97.0 07/11/17 00:03 118 107/77 07/11/17 00:03 97.5 118 24 107/77 94 Nasal Cannula 97.5 07/11/17 00:00 125 07/10/17 20:50 125 121/90 07/10/17 20:47 125 121/90 07/10/17 20:01 97.0 125 20 121/90 95 Nasal Cannula 4.0 97.0 07/10/17 20:00 122 07/10/17 20:00 97.0 125 20 121/90 95 Nasal Cannula 2.0 97.0 07/10/17 19:28 93 Nasal Cannula 4.0 36 07/10/17 19:28 Nasal Cannula 4.0 36 07/10/17 19:27 121 20 Nasal Cannula 4.0 36 07/10/17 17:16 97.0 07/10/17 17:16 117/79 07/10/17 16:44 97.0 07/10/17 16:00 130 07/10/17 16:00 97.0 128 22 117/79 93 Room Air 97.0 Intake and Output 07/10/17 07/11/17 19:00 07:00 Intake Total 755 ml 400 ml Output Total 0 ml Balance 755 ml 400 ml Intake Oral 500 ml 400 ml IV Total 255 ml Estimated Blood Loss 0 ml # Bowel Movements 1 1 Objective General Appearance: WD/WN HEENT: normocephalic, atraumatic, anicteric Respiratory/Chest: loud rhonchi Cardiovascular: normal peripheral pulses, normal rate, regular rhythm Abdomen: normal bowel sounds, soft, non tender, no organomegaly Genitourinary: normal external genitalia Extremities: no cyanosis Skin: no rash, no lesions 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, no motor/sensory deficits Lymphatic: no neck adenopathy, no groin adenopathy Microbiology Date/Time Source Procedure Growth Status 07/10/17 10:00 Lung Right Upper Lobe Gram Stain - Final Resulted 07/10/17 10:00 Lung Right Upper Lobe Aerobic Culture - Preliminary Resulted 07/10/17 10:00 Lung Right Upper Lobe Anaerobic Culture - Preliminary Resulted Laboratory Tests 07/11/17 10:40: White Blood Count 6.5, Red Blood Count 2.95L, Hemoglobin 9.2L, Hematocrit 30.9L , Mean Corpuscular Volume 105H, Mean Corpuscular Hemoglobin 31.3H, Mean Corpuscular Hemoglobin Concent 29.9L, Red Cell Distribution Width 19.1H, Platelet Count 101L, Mean Platelet Volume 7.6, Neutrophils (%) (Auto) , Lymphocytes (%) (Auto) , Monocytes (%) (Auto) , Eosinophils (%) (Auto) , Basophils (%) (Auto) , Differential Total Cells Counted 100, Neutrophils % ( Manual) 46, Lymphocytes % (Manual) 29, Monocytes % (Manual) 16H, Eosinophils % ( Manual) 9H, Basophils % (Manual) 0, Band Neutrophils 0, Platelet Estimate DecreasedL, Platelet Morphology Normal, Polychromasia 2+, Hypochromasia 1+, Anisocytosis 1+, Macrocytosis 2+, Sodium Level 136, Potassium Level 5.3H, Chloride Level 97L, Carbon Dioxide Level 29, Anion Gap 10, Blood Urea Nitrogen 62H, Creatinine 12.4H, Estimat Glomerular Filtration Rate 5.1, Glucose Level 106 , Calcium Level 8.5, Total Bilirubin 1.7H, Direct Bilirubin 1.1H, Aspartate Amino Transf (AST/SGOT) 67H, Alanine Aminotransferase (ALT/SGPT) 26, Alkaline Phosphatase 96, Total Protein 6.9, Albumin 2.4L, Globulin 4.5, Albumin/Globulin Ratio 0.5L Current Medications Medications (Trade) Dose Ordered Sig/Jose Route PRN Reason Start Time Stop Time Status Last Admin Dose Admin Alprazolam (Xanax) 2 mg DAILYPRN PRN ORAL For Anxiety 07/09/17 15:15 07/16/17 15:14 07/11/17 05:47 Amikacin Protocol (Amikacin pharmacy to dose) 1 ea DAILY PRN MISC Per rx protocol 07/06/17 09:00 08/03/17 15:14 Amikacin Sulfate 1000 mg/Dextrose 114 ml @ 228 mls/hr MON-WED-FRI IV 07/07/17 21:00 07/11/17 20:59 07/09/17 21:29 Apixaban (Eliquis) 2.5 mg BID ORAL 07/06/17 18:00 08/05/17 17:59 07/11/17 08:32 Carisoprodol (Soma) 350 mg Q6H PRN ORAL MUSCLE SPASMS 07/06/17 07:00 07/14/17 18:59 07/11/17 00:02 Chlorhexidine Gluconate (Mireille-Hex 2%) 1 applic DAILY@1999 TOPIC 07/06/17 20:00 08/02/17 19:59 07/10/17 20:50 Clonidine HCl (Catapres Tab) 0.1 mg Q4H PRN ORAL bp over 160 syst 07/06/17 07:30 07/19/17 11:29 Dextrose (Dextrose 50%) 25 ml STAT PRN IV HYPOGLYCEMIA 07/09/17 08:30 08/08/17 08:29 Dextrose (Dextrose 50%) 50 ml STAT PRN IV Hypoglycemia 07/09/17 08:30 07/14/17 18:59 Diltiazem HCl (Cardizem) 10 mg Q1H PRN IVP tachycardia 07/08/17 15:30 08/07/17 15:29 07/09/17 22:42 Diltiazem HCl (Cardizem) 30 mg EVERY 6 HOURS ORAL 07/10/17 19:30 08/09/17 19:29 07/11/17 12:51 Docusate Sodium (Colace) 100 mg THREE TIMES A DAY ORAL 07/06/17 09:00 07/18/17 13:00 07/11/17 12:51 Ethambutol HCl (Myambutol) 1,000 mg 3XW ORAL 07/07/17 09:00 07/18/17 23:59 07/11/17 09:54 Hydromorphone HCl (Dilaudid) 2 mg Q4H PRN IVP Severe Pain (Pain Scale 7-10) 07/09/17 12:45 07/16/17 12:44 07/11/17 12:52 Levofloxacin (Levaquin) 750 mg EVERY OTHER DAY@1999 ORAL 07/07/17 20:00 07/14/17 19:59 07/09/17 21:14 Lisinopril (Prinivil) 20 mg BID ORAL 07/06/17 09:00 07/19/17 18:00 07/10/17 17:16 Metoprolol Tartrate (Lopressor) 5 mg Q5MIN X 3 IVP 07/06/17 14:15 08/05/17 14:14 07/07/17 00:38 Metoprolol Tartrate (Lopressor) 75 mg Q12HR ORAL 07/08/17 21:00 08/07/17 20:59 07/10/17 20:50 Nitroglycerin (Ntg) 0.4 mg Q5M PRN SL Prn Chest Pain 07/06/17 04:00 07/19/17 11:29 Ondansetron HCl (Zofran) 4 mg Q6H PRN IVP Nausea & Vomiting 07/06/17 06:30 07/14/17 18:29 07/10/17 15:45 Pantoprazole (Protonix) 40 mg ACBREAKFAST ORAL 07/06/17 06:30 07/15/17 06:29 07/11/17 05:47 Piperacillin Sod/ Tazobactam Sod 2.25 gm/Dextrose 55 ml @ 110 mls/hr Q8HR IVPB 07/08/17 14:00 07/13/17 13:59 07/11/17 14:51 Polyethylene Glycol (Miralax) 17 gm DAILYPRN PRN ORAL Constipation 07/06/17 18:30 07/14/17 18:29 Promethazine HCl/ Codeine (Phenergan with Codeine) 5 ml Q4H PRN ORAL For Cough 07/06/17 06:30 07/22/17 10:30 07/08/17 01:56 Sevelamer Carbonate (Renvela) 2,400 mg THREE TIMES A DAY ORAL 07/06/17 09:00 07/16/17 18:44 07/11/17 12:51 Christine Morgan MD Jul 11, 2017 15:46
--- NOTE | 2017-07-11 18:58 | Cardiology Progress Note ---
Assessment/Plan Assessment/Plan pleuritic chest pain neg recent sig perfusion abn; systolic dysfunction on mild degree involving the septum cavitating lung lesion improved on recent ct esrd htn anemia icd hx biotonix , interrogated 07/09/19 edema afib / atrial tachy thrombocytopenia tachy still despite cardizem increase bb for atrial tachy repeat ekg in am plt low is on eliquis for stroke prevention venous duplex neg echo reviewed swma in septum (possible) as tech difficult study ef 45% dialysis per dr grimaldo may need more fluid removal had almost 5 liter removed yest will need more removed afb smear neg ct noted icd interrogated yest no shock fucntion fine Subjective Cardiovascular: Denies: chest pain, lightheadedness Respiratory: Reports: cough, shortness of breath Gastrointestinal/Abdominal: Denies: abdominal pain Genitourinary: Denies: burning Objective Last 24 Hour Vital Signs Date Time Temp Pulse Resp B/P (MAP) Pulse Ox O2 Delivery O2 Flow Rate FiO2 07/11/17 18:09 129 105/82 07/11/17 18:01 97.7 07/11/17 17:32 105/82 07/11/17 17:31 97.7 07/11/17 16:00 129 07/11/17 16:00 97.7 129 20 105/82 100 97.7 07/11/17 12:52 97.0 07/11/17 12:30 95 113/72 07/11/17 12:14 121 20 97 07/11/17 12:00 125 07/11/17 12:00 97.0 121 20 120/74 100 97.0 07/11/17 11:10 Nasal Cannula 2.0 07/11/17 08:46 Nasal Cannula 4.0 36 07/11/17 08:45 97 Nasal Cannula 4.0 36 07/11/17 08:44 124 22 Nasal Cannula 4.0 07/11/17 08:39 123 109/80 07/11/17 08:39 109/80 07/11/17 08:32 97.5 07/11/17 08:00 97.5 123 20 109/80 93 Nasal Cannula 97.5 07/11/17 08:00 122 07/11/17 05:54 121 104/79 07/11/17 04:01 97.0 126 20 105/77 100 Nasal Cannula 97.0 07/11/17 04:00 125 07/11/17 04:00 97.0 126 19 105/71 100 Nasal Cannula 4.0 97.0 07/11/17 00:03 118 107/77 07/11/17 00:03 97.5 118 24 107/77 94 Nasal Cannula 97.5 07/11/17 00:00 125 07/10/17 20:50 125 121/90 07/10/17 20:47 125 121/90 07/10/17 20:01 97.0 125 20 121/90 95 Nasal Cannula 4.0 97.0 07/10/17 20:00 122 07/10/17 20:00 97.0 125 20 121/90 95 Nasal Cannula 2.0 97.0 07/10/17 19:28 93 Nasal Cannula 4.0 36 07/10/17 19:28 Nasal Cannula 4.0 36 07/10/17 19:27 121 20 Nasal Cannula 4.0 36 General Appearance: alert Neck: supple Cardiovascular: normal rate, tachycardia Respiratory/Chest: crackles/rales Abdomen: normal bowel sounds, non tender, soft Extremities: severe edema Intake and Output 07/10/17 07/11/17 19:00 07:00 Intake Total 755 ml 400 ml Output Total 0 ml Balance 755 ml 400 ml Intake Oral 500 ml 400 ml IV Total 255 ml Estimated Blood Loss 0 ml # Bowel Movements 1 1 Laboratory Tests Test 07/11/17 10:40 White Blood Count 6.5 K/UL (4.8-10.8) Red Blood Count 2.95 M/UL (4.70-6.10) L Hemoglobin 9.2 G/DL (14.2-18.0) L Hematocrit 30.9 % (42.0-52.0) L Mean Corpuscular Volume 105 FL (80-99) H Mean Corpuscular Hemoglobin 31.3 PG (27.0-31.0) H Mean Corpuscular Hemoglobin Concent 29.9 G/DL (32.0-36.0) L Red Cell Distribution Width 19.1 % (11.6-14.8) H Platelet Count 101 K/UL (150-450) L Mean Platelet Volume 7.6 FL (6.5-10.1) Neutrophils (%) (Auto) % (45.0-75.0) Lymphocytes (%) (Auto) % (20.0-45.0) Monocytes (%) (Auto) % (1.0-10.0) Eosinophils (%) (Auto) % (0.0-3.0) Basophils (%) (Auto) % (0.0-2.0) Differential Total Cells Counted 100 Neutrophils % (Manual) 46 % (45-75) Lymphocytes % (Manual) 29 % (20-45) Monocytes % (Manual) 16 % (1-10) H Eosinophils % (Manual) 9 % (0-3) H Basophils % (Manual) 0 % (0-2) Band Neutrophils 0 % (0-8) Platelet Estimate Decreased L Platelet Morphology Normal Polychromasia 2+ Hypochromasia 1+ Anisocytosis 1+ Macrocytosis 2+ Sodium Level 136 MMOL/L (136-145) Potassium Level 5.3 MMOL/L (3.5-5.1) H Chloride Level 97 MMOL/L (98-107) L Carbon Dioxide Level 29 MMOL/L (21-32) Anion Gap 10 mmol/L (5-15) Blood Urea Nitrogen 62 mg/dL (7-18) H Creatinine 12.4 MG/DL (0.55-1.30) H Estimat Glomerular Filtration Rate 5.1 mL/min (>60) Glucose Level 106 MG/DL (74-106) Calcium Level 8.5 MG/DL (8.5-10.1) Total Bilirubin 1.7 MG/DL (0.2-1.0) H Direct Bilirubin 1.1 MG/DL (0.0-0.3) H Aspartate Amino Transf (AST/SGOT) 67 U/L (15-37) H Alanine Aminotransferase (ALT/SGPT) 26 U/L (12-78) Alkaline Phosphatase 96 U/L (46-116) Total Protein 6.9 G/DL (6.4-8.2) Albumin 2.4 G/DL (3.4-5.0) L Globulin 4.5 g/dL Albumin/Globulin Ratio 0.5 (1.0-2.7) L Microbiology Date/Time Source Procedure Growth Status 07/10/17 10:00 Lung Right Upper Lobe Gram Stain - Final Resulted 07/10/17 10:00 Lung Right Upper Lobe Aerobic Culture - Preliminary Resulted 07/10/17 10:00 Lung Right Upper Lobe Anaerobic Culture - Preliminary Resulted PRECIOUS GARCIA Jul 11, 2017 18:57
--- NOTE | 2017-07-11 19:08 | Infectious Diseases Prog Note ---
Assessment/Plan Assessment/Plan Cavitary PNA. SCx: Neg ( m/l necrotizing Pneum, vs aerobic abscess, doubt TB or fungal ) ; improving - 07/09 SP BAL -CT chest 06/25: Since the prior study of 06/15/2017, and. From further reduction in size of previously demonstrated thick walled right upper lobe cavitary mass. This was previously thought to most likely represent a cavitary inflammatory mass, and the interim reduction in size certainly supports that. Much less likely a cavitary neoplasm, but follow-up to resolution is recommended. Markedly improved parenchymal disease bilaterally, since the previous study. Nonetheless , extensive atelectasis and groundglass consolidation persists. Persistent small right pleural effusion, smaller than on the prior study. Resolved left pleural effusion 6 mm nodular opacity in the right upper lobe, not evident previously but likely obscured by surrounding consolidated lung parenchyma. This should be followed up in 6 months to one year depending on results of interim follow-up exams -CXR 06/21: Persistent but slightly decreased size of known right lung cavitary lesion. Persistent extensive interstitial and bilateral airspace opacities. -sp cx 06/05, 06/06 normal resp jordin; repeat sp cx 06/18 PsA (singh S) + Providencia stuarti (S Ceftriaxone, R Cipro) (likely superinfection/HCAP) Rsp status improved but on 06/[address] his condition worsen T-SPOT :Neg AFB x 3 : Neg MTB PCR x2 : neg cryptococcus Ag, Histoplams mycelial Ab , Blastomyces ab : neg ; histoplasma yeast ab (not able to be done due to anticomplementary activity) -Cocci, Asp ag p -Fungitell + 144 (?aspergillosis vs false positive) 06/21 Xray : improvement of cavity CT chest 06/15: Slightly smaller (6 cm diameter ) but mostly unchanged cavitary lesion in the right lung, previously thought to represent a cavitating inflammatory process. Lung abscess is certainly a possibility. Fairly extensive bilateral pulmonary parenchymal consolidation, slightly increased from previous exam of 06/05/2017. Likely a combination of pulmonary edema and pneumonia. Small right and trace left pleural effusion, new/increased from the previous study. CT 06/05: 7.8 x 5.3 x 6.6 cm dense opacity in the posterior inferior right upper lobe with a central cavitation. Chest x-ray : right mid lung infiltrate, possible cavitation Rule out tuberculosis, fungal infection, or necrotizing pneumonia. CRP 14 Influenza negative Coccidioidal ,Galactomannan : NEG ( PER LAB ) Transaminitis , improving after stopping rifampin 2/2 Hep C cirrhosis- no active Hep C as VL not detected -CT abd/p: Evidence of hepatic cirrhosis. Hepatosplenomegaly. evidence of generalized anasarca, with pleural fluid and generalized subcutaneous edema. Cholelithiasis, also previously reported. Possible diverticulosis. No evidence of diverticulitis US Abd : Cholelithiasis. There is gallbladder wall thickening, likely related to hemodynamic abnormalities Splenomegaly. Evidence of hepatic cirrhosis HIV : NEG Hep Panel B neg , C Ab : +ve , VL not detected leukopenia and TCP 2/2 splenomegaly Seizure disorder History of CVA History of pacemaker placement Hyperlipidemia Hypertension COPD/asthma End-stage renal disease, on hemodialysis Diabetes Anxiety Anemia Echo, ejection fraction 45% to 50%. PLAN: - cont Zoysn d# 4 ( pt SOB and CXR worsen , better coverage of anaerobes, PSA and Providencia ); abx d# 37 / 42, then will switch to oral Clinda till resolution of of abscess Continue empiric Ethambutol and Levaquin, Amikacin ( empiric TB AB Rx d# 27 as per TB control request, this was DW TB control , still insisted to cont w TB regiment till final cultures are back ) 4/ SP Dc Flagyl 07/06 SP Voriconazole ( low antonio for fungal infection , and in the setting of cirrhosis ) 07/05 SP Micafungin abx d#20 , Rifampin 600mg qd #10 07/01 SP Ceftriaxone #10 06/28 SP Amikacin #15 06/25 SP PO Voriconazole #3 06/20 SP Liposomal Ampho #8 06/17 SP IV Vancomycin #14, Meropenem #5 3 SP Zosyn d# 10 3/ SP Zithromax D# 6 f/u sputum culture (fungal, and AFB x3). - CMP - monitor BAL Cx : P Subjective Allergies: Coded Allergies: IODINE AND IODIDE CONTAINING PRODUC (Verified Allergy, Mild, itching and pruritis, 06/25/17) Uncoded Allergies: CONTRAST/DYE (Allergy, Intermediate, PRURITIS AND ITCHING, 06/25/17) Subjective SOB + , Objective Vital Signs Last 24 Hour Vital Signs Date Time Temp Pulse Resp B/P (MAP) Pulse Ox O2 Delivery O2 Flow Rate FiO2 07/11/17 18:09 129 105/82 07/11/17 18:01 97.7 07/11/17 17:32 105/82 07/11/17 17:31 97.7 07/11/17 16:00 129 07/11/17 16:00 97.7 129 20 105/82 100 97.7 07/11/17 12:52 97.0 07/11/17 12:30 95 113/72 07/11/17 12:14 121 20 97 07/11/17 12:00 125 07/11/17 12:00 97.0 121 20 120/74 100 97.0 07/11/17 11:10 Nasal Cannula 2.0 07/11/17 08:46 Nasal Cannula 4.0 36 07/11/17 08:45 97 Nasal Cannula 4.0 36 07/11/17 08:44 124 22 Nasal Cannula 4.0 07/11/17 08:39 123 109/80 07/11/17 08:39 109/80 07/11/17 08:32 97.5 07/11/17 08:00 97.5 123 20 109/80 93 Nasal Cannula 97.5 07/11/17 08:00 122 07/11/17 05:54 121 104/79 07/11/17 04:01 97.0 126 20 105/77 100 Nasal Cannula 97.0 07/11/17 04:00 125 07/11/17 04:00 97.0 126 19 105/71 100 Nasal Cannula 4.0 97.0 07/11/17 00:03 118 107/77 07/11/17 00:03 97.5 118 24 107/77 94 Nasal Cannula 97.5 07/11/17 00:00 125 07/10/17 20:50 125 121/90 07/10/17 20:47 125 121/90 07/10/17 20:01 97.0 125 20 121/90 95 Nasal Cannula 4.0 97.0 07/10/17 20:00 122 07/10/17 20:00 97.0 125 20 121/90 95 Nasal Cannula 2.0 97.0 07/10/17 19:28 93 Nasal Cannula 4.0 36 07/10/17 19:28 Nasal Cannula 4.0 36 07/10/17 19:27 121 20 Nasal Cannula 4.0 36 Height (Feet): 5 Height (Inches): 7.00 Weight (Pounds): 235 HEENT: anicteric Respiratory/Chest: crackles/rales Cardiovascular: regular rhythm Abdomen: soft, non tender, no organomegaly Microbiology Date/Time Source Procedure Growth Status 07/10/17 10:00 Lung Right Upper Lobe Gram Stain - Final Resulted 07/10/17 10:00 Lung Right Upper Lobe Aerobic Culture - Preliminary Resulted 07/10/17 10:00 Lung Right Upper Lobe Anaerobic Culture - Preliminary Resulted Laboratory Tests Test 07/11/17 10:40 White Blood Count 6.5 K/UL (4.8-10.8) Red Blood Count 2.95 M/UL (4.70-6.10) L Hemoglobin 9.2 G/DL (14.2-18.0) L Hematocrit 30.9 % (42.0-52.0) L Mean Corpuscular Volume 105 FL (80-99) H Mean Corpuscular Hemoglobin 31.3 PG (27.0-31.0) H Mean Corpuscular Hemoglobin Concent 29.9 G/DL (32.0-36.0) L Red Cell Distribution Width 19.1 % (11.6-14.8) H Platelet Count 101 K/UL (150-450) L Mean Platelet Volume 7.6 FL (6.5-10.1) Neutrophils (%) (Auto) % (45.0-75.0) Lymphocytes (%) (Auto) % (20.0-45.0) Monocytes (%) (Auto) % (1.0-10.0) Eosinophils (%) (Auto) % (0.0-3.0) Basophils (%) (Auto) % (0.0-2.0) Differential Total Cells Counted 100 Neutrophils % (Manual) 46 % (45-75) Lymphocytes % (Manual) 29 % (20-45) Monocytes % (Manual) 16 % (1-10) H Eosinophils % (Manual) 9 % (0-3) H Basophils % (Manual) 0 % (0-2) Band Neutrophils 0 % (0-8) Platelet Estimate Decreased L Platelet Morphology Normal Polychromasia 2+ Hypochromasia 1+ Anisocytosis 1+ Macrocytosis 2+ Sodium Level 136 MMOL/L (136-145) Potassium Level 5.3 MMOL/L (3.5-5.1) H Chloride Level 97 MMOL/L (98-107) L Carbon Dioxide Level 29 MMOL/L (21-32) Anion Gap 10 mmol/L (5-15) Blood Urea Nitrogen 62 mg/dL (7-18) H Creatinine 12.4 MG/DL (0.55-1.30) H Estimat Glomerular Filtration Rate 5.1 mL/min (>60) Glucose Level 106 MG/DL (74-106) Calcium Level 8.5 MG/DL (8.5-10.1) Total Bilirubin 1.7 MG/DL (0.2-1.0) H Direct Bilirubin 1.1 MG/DL (0.0-0.3) H Aspartate Amino Transf (AST/SGOT) 67 U/L (15-37) H Alanine Aminotransferase (ALT/SGPT) 26 U/L (12-78) Alkaline Phosphatase 96 U/L (46-116) Total Protein 6.9 G/DL (6.4-8.2) Albumin 2.4 G/DL (3.4-5.0) L Globulin 4.5 g/dL Albumin/Globulin Ratio 0.5 (1.0-2.7) L Current Medications Medications (Trade) Dose Ordered Sig/Jose Route PRN Reason Start Time Stop Time Status Last Admin Dose Admin Alprazolam (Xanax) 2 mg DAILYPRN PRN ORAL For Anxiety 07/09/17 15:15 07/16/17 15:14 07/11/17 05:47 Amikacin Protocol (Amikacin pharmacy to dose) 1 ea DAILY PRN MISC Per rx protocol 07/06/17 09:00 08/03/17 15:14 Amikacin Sulfate 1000 mg/Dextrose 114 ml @ 228 mls/hr MON-WED-FRI IV 07/07/17 21:00 07/11/17 20:59 07/09/17 21:29 Apixaban (Eliquis) 2.5 mg BID ORAL 07/06/17 18:00 08/05/17 17:59 07/11/17 17:31 Carisoprodol (Soma) 350 mg Q6H PRN ORAL MUSCLE SPASMS 07/06/17 07:00 07/14/17 18:59 07/11/17 00:02 Chlorhexidine Gluconate (Mireille-Hex 2%) 1 applic DAILY@1999 TOPIC 07/06/17 20:00 08/02/17 19:59 07/10/17 20:50 Clonidine HCl (Catapres Tab) 0.1 mg Q4H PRN ORAL bp over 160 syst 07/06/17 07:30 07/19/17 11:29 Dextrose (Dextrose 50%) 25 ml STAT PRN IV HYPOGLYCEMIA 07/09/17 08:30 08/08/17 08:29 Dextrose (Dextrose 50%) 50 ml STAT PRN IV Hypoglycemia 07/09/17 08:30 07/14/17 18:59 Diltiazem HCl (Cardizem) 10 mg Q1H PRN IVP tachycardia 07/08/17 15:30 08/07/17 15:29 07/09/17 22:42 Diltiazem HCl (Cardizem) 30 mg EVERY 6 HOURS ORAL 07/10/17 19:30 08/09/17 19:29 07/11/17 18:09 Docusate Sodium (Colace) 100 mg THREE TIMES A DAY ORAL 07/06/17 09:00 07/18/17 13:00 07/11/17 17:31 Ethambutol HCl (Myambutol) 1,000 mg 3XW ORAL 07/07/17 09:00 07/18/17 23:59 07/11/17 09:54 Hydromorphone HCl (Dilaudid) 2 mg Q4H PRN IVP Severe Pain (Pain Scale 7-10) 07/09/17 12:45 07/16/17 12:44 07/11/17 17:31 Levofloxacin (Levaquin) 750 mg EVERY OTHER DAY@1999 ORAL 07/07/17 20:00 07/14/17 19:59 07/09/17 21:14 Lisinopril (Prinivil) 20 mg BID ORAL 07/06/17 09:00 07/19/17 18:00 07/10/17 17:16 Metoprolol Tartrate (Lopressor) 5 mg Q5MIN X 3 IVP 07/06/17 14:15 08/05/17 14:14 07/07/17 00:38 Metoprolol Tartrate (Lopressor) 100 mg Q12HR ORAL 07/11/17 21:00 08/10/17 20:59 Nitroglycerin (Ntg) 0.4 mg Q5M PRN SL Prn Chest Pain 07/06/17 04:00 07/19/17 11:29 Ondansetron HCl (Zofran) 4 mg Q6H PRN IVP Nausea & Vomiting 07/06/17 06:30 07/14/17 18:29 07/10/17 15:45 Pantoprazole (Protonix) 40 mg ACBREAKFAST ORAL 07/06/17 06:30 07/15/17 06:29 07/11/17 05:47 Piperacillin Sod/ Tazobactam Sod 2.25 gm/Dextrose 55 ml @ 110 mls/hr Q8HR IVPB 07/08/17 14:00 07/13/17 13:59 07/11/17 14:51 Polyethylene Glycol (Miralax) 17 gm DAILYPRN PRN ORAL Constipation 07/06/17 18:30 07/14/17 18:29 Promethazine HCl/ Codeine (Phenergan with Codeine) 5 ml Q4H PRN ORAL For Cough 07/06/17 06:30 07/22/17 10:30 07/08/17 01:56 Sevelamer Carbonate (Renvela) 2,400 mg THREE TIMES A DAY ORAL 07/06/17 09:00 07/16/17 18:44 07/11/17 17:31 Cristofer Antunez MD Jul 11, 2017 19:08
--- NOTE | 2017-07-11 19:19 | Internal Med Progress Note ---
Subjective Date of Service: Jul 11, 2017 Physician Name Zoey Pires Attending Physician Chaitanya Weinstein MD Current Medications Medications (Trade) Dose Ordered Sig/Joes Route PRN Reason Start Time Stop Time Status Last Admin Dose Admin Alprazolam (Xanax) 2 mg DAILYPRN PRN ORAL For Anxiety 07/09/17 15:15 07/16/17 15:14 07/11/17 05:47 Amikacin Protocol (Amikacin pharmacy to dose) 1 ea DAILY PRN MISC Per rx protocol 07/06/17 09:00 08/03/17 15:14 Amikacin Sulfate 1000 mg/Dextrose 114 ml @ 228 mls/hr FRI-FRI-FRI IV 07/07/17 21:00 07/11/17 20:59 07/09/17 21:29 Apixaban (Eliquis) 2.5 mg BID ORAL 07/06/17 18:00 08/05/17 17:59 07/11/17 17:31 Carisoprodol (Soma) 350 mg Q6H PRN ORAL MUSCLE SPASMS 07/06/17 07:00 07/14/17 18:59 07/11/17 00:02 Chlorhexidine Gluconate (Mireille-Hex 2%) 1 applic DAILY@2000 TOPIC 07/06/17 20:00 08/02/17 19:59 07/10/17 20:50 Clonidine HCl (Catapres Tab) 0.1 mg Q4H PRN ORAL bp over 160 syst 07/06/17 07:30 07/19/17 11:29 Dextrose (Dextrose 50%) 25 ml STAT PRN IV HYPOGLYCEMIA 07/09/17 08:30 08/08/17 08:29 Dextrose (Dextrose 50%) 50 ml STAT PRN IV Hypoglycemia 07/09/17 08:30 07/14/17 18:59 Diltiazem HCl (Cardizem) 10 mg Q1H PRN IVP tachycardia 07/08/17 15:30 08/07/17 15:29 07/09/17 22:42 Diltiazem HCl (Cardizem) 30 mg EVERY 6 HOURS ORAL 07/10/17 19:30 08/09/17 19:29 07/11/17 18:09 Docusate Sodium (Colace) 100 mg THREE TIMES A DAY ORAL 07/06/17 09:00 07/18/17 13:00 07/11/17 17:31 Ethambutol HCl (Myambutol) 1,000 mg 3XW ORAL 07/07/17 09:00 07/18/17 23:59 07/11/17 09:54 Hydromorphone HCl (Dilaudid) 2 mg Q4H PRN IVP Severe Pain (Pain Scale 7-10) 07/09/17 12:45 07/16/17 12:44 07/11/17 17:31 Levofloxacin (Levaquin) 750 mg EVERY OTHER DAY@2000 ORAL 07/07/17 20:00 07/14/17 19:59 07/09/17 21:14 Lisinopril (Prinivil) 20 mg BID ORAL 07/06/17 09:00 07/19/17 18:00 07/10/17 17:16 Metoprolol Tartrate (Lopressor) 5 mg Q5MIN X 3 IVP 07/06/17 14:15 08/05/17 14:14 07/07/17 00:38 Metoprolol Tartrate (Lopressor) 100 mg Q12HR ORAL 07/11/17 21:00 08/10/17 20:59 Nitroglycerin (Ntg) 0.4 mg Q5M PRN SL Prn Chest Pain 07/06/17 04:00 07/19/17 11:29 Ondansetron HCl (Zofran) 4 mg Q6H PRN IVP Nausea & Vomiting 07/06/17 06:30 07/14/17 18:29 07/10/17 15:45 Pantoprazole (Protonix) 40 mg ACBREAKFAST ORAL 07/06/17 06:30 07/15/17 06:29 07/11/17 05:47 Piperacillin Sod/ Tazobactam Sod 2.25 gm/Dextrose 55 ml @ 110 mls/hr Q8HR IVPB 07/08/17 14:00 07/13/17 13:59 07/11/17 14:51 Polyethylene Glycol (Miralax) 17 gm DAILYPRN PRN ORAL Constipation 07/06/17 18:30 07/14/17 18:29 Promethazine HCl/ Codeine (Phenergan with Codeine) 5 ml Q4H PRN ORAL For Cough 07/06/17 06:30 07/22/17 10:30 07/08/17 01:56 Sevelamer Carbonate (Renvela) 2,400 mg THREE TIMES A DAY ORAL 07/06/17 09:00 07/16/17 18:44 07/11/17 17:31 Allergies: Coded Allergies: IODINE AND IODIDE CONTAINING PRODUC (Verified Allergy, Mild, itching and pruritis, 06/25/17) Uncoded Allergies: CONTRAST/DYE (Allergy, Intermediate, PRURITIS AND ITCHING, 06/25/17) ROS Limited/Unobtainable: No Constitutional: Reports: no symptoms HEENT: Reports: no symptoms Cardiovascular: Reports: no symptoms Respiratory: Reports: no symptoms Gastrointestinal/Abdominal: Reports: no symptoms Genitourinary: Reports: no symptoms Neurologic/Psychiatric: Reports: no symptoms Subjective 57 YO M admitted with chest pain and shortness of breath. Now pneumonia and candelaria heart failure. Back on nasal canula. Cover for Int Misbah-Dr Weinstein. Now atrial flutter improving ventricular rate. C/O diarrhea Objective Last Vital Signs Date Time Temp Pulse Resp B/P (MAP) Pulse Ox O2 Delivery O2 Flow Rate FiO2 07/11/17 18:09 129 105/82 07/11/17 18:01 97.7 07/11/17 16:00 20 100 07/11/17 11:10 Nasal Cannula 2.0 07/11/17 08:46 36 Laboratory Tests Test 07/11/17 10:40 White Blood Count 6.5 K/UL (4.8-10.8) Red Blood Count 2.95 M/UL (4.70-6.10) L Hemoglobin 9.2 G/DL (14.2-18.0) L Hematocrit 30.9 % (42.0-52.0) L Mean Corpuscular Volume 105 FL (80-99) H Mean Corpuscular Hemoglobin 31.3 PG (27.0-31.0) H Mean Corpuscular Hemoglobin Concent 29.9 G/DL (32.0-36.0) L Red Cell Distribution Width 19.1 % (11.6-14.8) H Platelet Count 101 K/UL (150-450) L Mean Platelet Volume 7.6 FL (6.5-10.1) Neutrophils (%) (Auto) % (45.0-75.0) Lymphocytes (%) (Auto) % (20.0-45.0) Monocytes (%) (Auto) % (1.0-10.0) Eosinophils (%) (Auto) % (0.0-3.0) Basophils (%) (Auto) % (0.0-2.0) Differential Total Cells Counted 100 Neutrophils % (Manual) 46 % (45-75) Lymphocytes % (Manual) 29 % (20-45) Monocytes % (Manual) 16 % (1-10) H Eosinophils % (Manual) 9 % (0-3) H Basophils % (Manual) 0 % (0-2) Band Neutrophils 0 % (0-8) Platelet Estimate Decreased L Platelet Morphology Normal Polychromasia 2+ Hypochromasia 1+ Anisocytosis 1+ Macrocytosis 2+ Sodium Level 136 MMOL/L (136-145) Potassium Level 5.3 MMOL/L (3.5-5.1) H Chloride Level 97 MMOL/L (98-107) L Carbon Dioxide Level 29 MMOL/L (21-32) Anion Gap 10 mmol/L (5-15) Blood Urea Nitrogen 62 mg/dL (7-18) H Creatinine 12.4 MG/DL (0.55-1.30) H Estimat Glomerular Filtration Rate 5.1 mL/min (>60) Glucose Level 106 MG/DL (74-106) Calcium Level 8.5 MG/DL (8.5-10.1) Total Bilirubin 1.7 MG/DL (0.2-1.0) H Direct Bilirubin 1.1 MG/DL (0.0-0.3) H Aspartate Amino Transf (AST/SGOT) 67 U/L (15-37) H Alanine Aminotransferase (ALT/SGPT) 26 U/L (12-78) Alkaline Phosphatase 96 U/L (46-116) Total Protein 6.9 G/DL (6.4-8.2) Albumin 2.4 G/DL (3.4-5.0) L Globulin 4.5 g/dL Albumin/Globulin Ratio 0.5 (1.0-2.7) L Microbiology Date/Time Source Procedure Growth Status 07/10/17 10:00 Lung Right Upper Lobe Gram Stain - Final Resulted 07/10/17 10:00 Lung Right Upper Lobe Aerobic Culture - Preliminary Resulted 07/10/17 10:00 Lung Right Upper Lobe Anaerobic Culture - Preliminary Resulted Intake and Output 07/10/17 07/11/17 19:00 07:00 Intake Total 755 ml 400 ml Output Total 0 ml Balance 755 ml 400 ml Intake Oral 500 ml 400 ml IV Total 255 ml Estimated Blood Loss 0 ml # Bowel Movements 1 1 Objective General Appearance: WD/WN, alert, moderate distress EENT: PERRL/EOMI, normal ENT inspection Neck: non-tender, normal alignment, supple, normal inspection Cardiovascular: Tachycardia; normal peripheral pulses, normal rate, regular rhythm, no gallop/murmur, no JVD Respiratory/Chest: Nasal canula; respiratory distress, crackles/rales, rhonchi - bilaterally, expiratory wheezing Abdomen: normal bowel sounds, non tender, soft, no organomegaly, no mass Extremities: normal range of motion Neurologic: 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 (2) Respiratory failure Assessment & Plan: CHF and Pneumonia. Currently on nasal canula. See pulmonay note. (3) Pleuritic chest pain (4) Hemoptysis Assessment & Plan: Due to pneumonia (5) Pneumonia Assessment & Plan: Providencia and pseudamonas. RUL and cavitary. Concerning for TB. Await AFB cultures-see ID consult. Continue vanco and ethambutol per ID. Continue rocephin, micafungin, flagyl, amikacin, levaquin, and rifampin (6) Shortness of breath (7) ESRD (end stage renal disease) on dialysis Assessment & Plan: See nephrology note. Next Hemodialysis 07/09/17 per nephrology (8) Hyperkalemia Assessment & Plan: Due to renal failure. Hemodialysis 06/12/17 per nephrology (9) COPD (chronic obstructive pulmonary disease) (10) HTN (hypertension) Assessment & Plan: Continue coreg and lisinopril. (11) CHF (congestive heart failure) (12) Elevated troponin Assessment & Plan: ?due to renal failure? See cardiology note. (13) Intractable abdominal pain Assessment & Plan: See surgery note. Await CT abdomen (14) Conjunctivitis Assessment & Plan: start tobramycin (15) Diarrhea Assessment & Plan: Send stool for C. Diff Assessment/Plan Discharge planning - coordination with [facility] pending ZOEY PIRES Jul 11, 2017 19:19
[2017-07-11] MEDS: Dyna-Hex 2% Top Sol 2oz TOPIC SCH (20:12)
--- NOTE | 2017-07-11 20:53 | General Progress Note ---
Assessment/Plan Assessment/Plan Assessment - gallstones - abnormal LFT - suspect due to cirrhosis +/- meds - Periodic N/V with abnormal GB ultrasound, ? possibly biliary colic - patient declined HIDA - Anemia, multifactorial - OB (+) Stool - patient declined EGD/Colon - ESRD/HD - DM - HTN - COPD - Cavitary lung disease - Thrombocytopenia - cirrhotic appearing liver on CT - Hepatitis C Ab (+)/ PCR (-) - Poor prognosis Recommendations - PO as tolerated - follow symptoms and exam - monitor LFT - avoid hepatotoxic meds - abx per ID - transfuse PRN - Acid blockade Subjective Allergies: Coded Allergies: IODINE AND IODIDE CONTAINING PRODUC (Verified Allergy, Mild, itching and pruritis, 06/25/17) Uncoded Allergies: CONTRAST/DYE (Allergy, Intermediate, PRURITIS AND ITCHING, 06/25/17) Subjective above noted d/w HD RN patient coughed up on a spoon of rice no vomiting Objective Last 24 Hour Vital Signs Date Time Temp Pulse Resp B/P (MAP) Pulse Ox O2 Delivery O2 Flow Rate FiO2 07/11/17 20:27 Nasal Cannula 4.0 36 07/11/17 20:27 95 Nasal Cannula 4.0 36 07/11/17 20:27 129 22 Nasal Cannula 4.0 07/11/17 18:09 129 105/82 07/11/17 18:01 97.7 07/11/17 17:32 105/82 07/11/17 17:31 97.7 07/11/17 16:00 129 07/11/17 16:00 97.7 129 20 105/82 100 97.7 07/11/17 12:52 97.0 07/11/17 12:30 95 113/72 07/11/17 12:14 121 20 97 07/11/17 12:00 125 07/11/17 12:00 97.0 121 20 120/74 100 97.0 07/11/17 11:10 Nasal Cannula 2.0 07/11/17 08:46 Nasal Cannula 4.0 36 07/11/17 08:45 97 Nasal Cannula 4.0 36 07/11/17 08:44 124 22 Nasal Cannula 4.0 07/11/17 08:39 123 109/80 07/11/17 08:39 109/80 07/11/17 08:32 97.5 07/11/17 08:00 97.5 123 20 109/80 93 Nasal Cannula 97.5 07/11/17 08:00 122 07/11/17 05:54 121 104/79 07/11/17 04:01 97.0 126 20 105/77 100 Nasal Cannula 97.0 07/11/17 04:00 125 07/11/17 04:00 97.0 126 19 105/71 100 Nasal Cannula 4.0 97.0 07/11/17 00:03 118 107/77 07/11/17 00:03 97.5 118 24 107/77 94 Nasal Cannula 97.5 07/11/17 00:00 125 07/10/17 20:50 125 121/90 Intake and Output 07/10/17 07/11/17 19:00 07:00 Intake Total 755 ml 400 ml Output Total 0 ml Balance 755 ml 400 ml Intake Oral 500 ml 400 ml IV Total 255 ml Estimated Blood Loss 0 ml # Bowel Movements 1 1 Laboratory Tests 07/11/17 10:40: White Blood Count 6.5, Red Blood Count 2.95L, Hemoglobin 9.2L, Hematocrit 30.9L , Mean Corpuscular Volume 105H, Mean Corpuscular Hemoglobin 31.3H, Mean Corpuscular Hemoglobin Concent 29.9L, Red Cell Distribution Width 19.1H, Platelet Count 101L, Mean Platelet Volume 7.6, Neutrophils (%) (Auto) , Lymphocytes (%) (Auto) , Monocytes (%) (Auto) , Eosinophils (%) (Auto) , Basophils (%) (Auto) , Differential Total Cells Counted 100, Neutrophils % ( Manual) 46, Lymphocytes % (Manual) 29, Monocytes % (Manual) 16H, Eosinophils % ( Manual) 9H, Basophils % (Manual) 0, Band Neutrophils 0, Platelet Estimate DecreasedL, Platelet Morphology Normal, Polychromasia 2+, Hypochromasia 1+, Anisocytosis 1+, Macrocytosis 2+, Sodium Level 136, Potassium Level 5.3H, Chloride Level 97L, Carbon Dioxide Level 29, Anion Gap 10, Blood Urea Nitrogen 62H, Creatinine 12.4H, Estimat Glomerular Filtration Rate 5.1, Glucose Level 106 , Calcium Level 8.5, Total Bilirubin 1.7H, Direct Bilirubin 1.1H, Aspartate Amino Transf (AST/SGOT) 67H, Alanine Aminotransferase (ALT/SGPT) 26, Alkaline Phosphatase 96, Total Protein 6.9, Albumin 2.4L, Globulin 4.5, Albumin/Globulin Ratio 0.5L Height (Feet): 5 Height (Inches): 7.00 Weight (Pounds): 235 Objective WDWN AA Man NCAT supple CTA RRR Soft mildly distended, (+) improved RUQ TTP, (+) trunk edema (+) leg edema PERCY JOYNER Jul 11, 2017 20:53
[2017-07-12] VITALS: BP 116/84
[2017-07-12] MEDS: dilTIAZem HCl 30mg tab ORAL SCH ×5 (00:06→23:15)
--- NOTE | 2017-07-12 02:09 | General Progress Note ---
Assessment/Plan Assessment/Plan #. Anemia secondary to chronic disease. --> Hemoglobin levels have been stable. No blood transfusion required at this time. --> S/P abd CAT scan revealing evidence of hepatic cirrhosis. --> Continue to closely monitor and trend cbc daily. --> Anemia workup completed and reviewed. Iron 42, TIBC 180, Ferritin 593, B12 876. --> Ferritin is >500, hgb goal is >7 --> Anemia w/u has been reviewed --> ++Occult blood. Consider GI Services and Recs. #. Thrombocytopenia. --> Hepatitis C ab ++, PCR - --> Monitor platelet level. Transfuse if platelet count <20k --> Levels improving. Continue to trend daily. #. Left leg dvt --> acute onset, will need to review final duplex results --> begin on apixaban daily x 3 months, low h/h will need to monitor closely --> okay to change to different anticoagulant if renal clearance an issue --> If h/h downtrends below 7.5, consider ivc filter placement. --> Hemoglobin currently >7.5 # Hepatosplenomegaly. Ascites. There is also evidence of generalized anasarca, with pleural fluid and generalized subcutaneous edema --> Abd pain improved on pain management #. Anemia of kidney disease --> HD as needed per nephrology team --> Monitor closely. --> Does not require iron at this time #. Generalized body ache related to fluid overload. #. End-stage renal disease, on hemodialysis as needed --> Monitor. S/P HD. #. Cardiomegaly. S/P Chest Xray --> Persistent but slightly decreased size of known right lung cavitary lesion. --> Persistent extensive interstitial and bilateral airspace opacities. --> Edema present. Subjective Date patient seen: Jul 10, 2017 Constitutional: Denies: no symptoms, chills, diaphoresis, fever, malaise, weakness, other HEENT: Denies: no symptoms, eye pain, blurred vision, tearing, double vision, ear pain, ear discharge, nose pain, nose congestion, throat pain, throat swelling, mouth pain, mouth swelling, other Cardiovascular: Denies: no symptoms, chest pain, edema, irregular heart rate, lightheadedness, palpitations, syncope, other Respiratory: Denies: no symptoms, cough, orthopnea, shortness of breath, SOB with excertion, SOB at rest, sputum, stridor, wheezing, other Gastrointestinal/Abdominal: Denies: no symptoms, abdomen distended, abdominal pain, black stools, tarry stools, blood in stool, constipated, diarrhea, difficulty swallowing, nausea, poor appetite, poor fluid intake, rectal bleeding , vomiting, other Genitourinary: Denies: no symptoms, burning, discharge, frequency, flank pain, hematuria, incontinence, pain, urgency, other Neurologic/Psychiatric: Denies: no symptoms, anxiety, depressed, emotional problems, headache, numbness, paresthesia, pre-existing deficit, seizure, tingling, tremors, weakness, other Hematologic/Lymphatic: Reports: anemia Allergies: Coded Allergies: IODINE AND IODIDE CONTAINING PRODUC (Verified Allergy, Mild, itching and pruritis, 06/25/17) Uncoded Allergies: CONTRAST/DYE (Allergy, Intermediate, PRURITIS AND ITCHING, 06/25/17) Subjective Poor prognosis. On pain control. H/H stable. Objective Last 24 Hour Vital Signs Date Time Temp Pulse Resp B/P (MAP) Pulse Ox O2 Delivery O2 Flow Rate FiO2 07/12/17 00:06 124 116/84 07/12/17 00:00 121 07/12/17 00:00 99.7 124 20 116/84 93 Nasal Cannula 4.0 99.7 07/11/17 21:26 117 123/56 07/11/17 20:27 Nasal Cannula 4.0 36 07/11/17 20:27 95 Nasal Cannula 4.0 36 07/11/17 20:27 129 22 Nasal Cannula 4.0 07/11/17 20:00 121 07/11/17 20:00 98.4 117 19 123/56 94 Nasal Cannula 4.0 98.4 07/11/17 18:09 129 105/82 07/11/17 18:01 97.7 07/11/17 17:32 105/82 07/11/17 17:31 97.7 07/11/17 16:00 129 07/11/17 16:00 97.7 129 20 105/82 100 97.7 07/11/17 12:52 97.0 07/11/17 12:30 95 113/72 07/11/17 12:14 121 20 97 07/11/17 12:00 125 07/11/17 12:00 97.0 121 20 120/74 100 97.0 07/11/17 11:10 Nasal Cannula 2.0 07/11/17 08:46 Nasal Cannula 4.0 36 07/11/17 08:45 97 Nasal Cannula 4.0 36 07/11/17 08:44 124 22 Nasal Cannula 4.0 07/11/17 08:39 123 109/80 07/11/17 08:39 109/80 07/11/17 08:32 97.5 07/11/17 08:00 97.5 123 20 109/80 93 Nasal Cannula 97.5 07/11/17 08:00 122 07/11/17 05:54 121 104/79 07/11/17 04:01 97.0 126 20 105/77 100 Nasal Cannula 97.0 07/11/17 04:00 125 07/11/17 04:00 97.0 126 19 105/71 100 Nasal Cannula 4.0 97.0 Intake and Output 07/11/17 07/12/17 19:00 07:00 Intake Total 655 ml Balance 655 ml Intake Oral 600 ml IV Total 55 ml # Bowel Movements 1 1 Laboratory Tests 07/11/17 10:40: White Blood Count 6.5, Red Blood Count 2.95L, Hemoglobin 9.2L, Hematocrit 30.9L , Mean Corpuscular Volume 105H, Mean Corpuscular Hemoglobin 31.3H, Mean Corpuscular Hemoglobin Concent 29.9L, Red Cell Distribution Width 19.1H, Platelet Count 101L, Mean Platelet Volume 7.6, Neutrophils (%) (Auto) , Lymphocytes (%) (Auto) , Monocytes (%) (Auto) , Eosinophils (%) (Auto) , Basophils (%) (Auto) , Differential Total Cells Counted 100, Neutrophils % ( Manual) 46, Lymphocytes % (Manual) 29, Monocytes % (Manual) 16H, Eosinophils % ( Manual) 9H, Basophils % (Manual) 0, Band Neutrophils 0, Platelet Estimate DecreasedL, Platelet Morphology Normal, Polychromasia 2+, Hypochromasia 1+, Anisocytosis 1+, Macrocytosis 2+, Sodium Level 136, Potassium Level 5.3H, Chloride Level 97L, Carbon Dioxide Level 29, Anion Gap 10, Blood Urea Nitrogen 62H, Creatinine 12.4H, Estimat Glomerular Filtration Rate 5.1, Glucose Level 106 , Calcium Level 8.5, Total Bilirubin 1.7H, Direct Bilirubin 1.1H, Aspartate Amino Transf (AST/SGOT) 67H, Alanine Aminotransferase (ALT/SGPT) 26, Alkaline Phosphatase 96, Total Protein 6.9, Albumin 2.4L, Globulin 4.5, Albumin/Globulin Ratio 0.5L Height (Feet): 5 Height (Inches): 7.00 Weight (Pounds): 235 General Appearance: confused Respiratory/Chest: decreased breath sounds Abdomen: soft Irving Parker MD Jul 12, 2017 02:09
[2017-07-12 04:00] VITALS: BP 117/78
[2017-07-12] MEDS: Piperacillin/Tazobactam 2.25 GM in D5W 55 ML IVPB SCH ×3 (05:57→22:22)
[2017-07-12] MEDS: ALPRAZolam 0.5mg tab ORAL PRN (06:04)
[2017-07-12 08:00] VITALS: BP 118/78
[2017-07-12] MEDS: Lisinopril 20mg tab ORAL SCH ×2 (10:23→18:00)
[2017-07-12] MEDS: Docusate 100mg cap ORAL SCH ×3 (10:23→18:12)
[2017-07-12] MEDS: Eliquis 2.5mg tablet ORAL SCH ×2 (10:25→18:12)
[2017-07-12] MEDS ORDERED: Amikacin 1,000 MG in D5W 110 ML IV SCH (11:00)
[2017-07-12 11:42] LABS: HEMATOCRIT 30.4 % (42.0-52.0); HEMOGLOBIN 9.5 G/DL (14.2-18.0); MEAN CORPUSCULAR VOLUME 105 FL (80-99); PLATELET COUNT 91 K/UL (150-450); RED BLOOD COUNT 2.89 M/UL (4.70-6.10); RED CELL DISTRIBUTION WIDTH 18.1 % (11.6-14.8); WHITE BLOOD COUNT 6.5 K/UL (4.8-10.8)
[2017-07-12 11:46] LABS: ANION GAP 9 mmol/L (5-15); BLOOD UREA NITROGEN 64 mg/dL (7-18); CALCIUM 8.7 MG/DL (8.5-10.1); CARBON DIOXIDE 30 MMOL/L (21-32); CHLORIDE 96 MMOL/L (98-107); CREATININE 12.1 MG/DL (0.55-1.30); POTASSIUM 4.9 MMOL/L (3.5-5.1); SODIUM 135 MMOL/L (136-145)
--- NOTE | 2017-07-12 11:52 | Pulmonology Progress Note ---
Assessment/Plan Problems: (1) Respiratory failure (2) Pneumonia (3) Hemoptysis (4) Anemia (5) ESRD (end stage renal disease) on dialysis (6) HTN (hypertension) Assessment/Plan still afib, around 120 continue telemetry, cardizem IV prn Heart rate better slowly improving repeat cxr in two days onNC clinically better HD by survival specialist prbc prn on anti TB meds wtih IV Amikacin, ethambutol BAL showing GPC Subjective ROS Limited/Unobtainable: No Constitutional: Reports: no symptoms HEENT: Repors: no symptoms Allergies: Coded Allergies: IODINE AND IODIDE CONTAINING PRODUC (Verified Allergy, Mild, itching and pruritis, 06/25/17) Uncoded Allergies: CONTRAST/DYE (Allergy, Intermediate, PRURITIS AND ITCHING, 06/25/17) Objective Last 24 Hour Vital Signs Date Time Temp Pulse Resp B/P (MAP) Pulse Ox O2 Delivery O2 Flow Rate FiO2 07/12/17 10:25 97.7 07/12/17 10:23 96 118/78 07/12/17 10:23 118/78 07/12/17 08:00 91 07/12/17 08:00 97.7 96 20 118/78 95 Nasal Cannula 4.0 97.7 07/12/17 07:18 95 Nasal Cannula 4.0 36 07/12/17 07:18 Nasal Cannula 4.0 36 07/12/17 07:18 88 22 Nasal Cannula 4.0 36 07/12/17 05:58 119 117/80 07/12/17 04:00 99.7 121 19 117/78 100 Nasal Cannula 4.0 99.7 07/12/17 04:00 107 07/12/17 00:06 124 116/84 07/12/17 00:00 121 07/12/17 00:00 99.7 124 20 116/84 93 Nasal Cannula 4.0 99.7 07/11/17 21:26 117 123/56 07/11/17 20:27 Nasal Cannula 4.0 36 07/11/17 20:27 95 Nasal Cannula 4.0 36 07/11/17 20:27 129 22 Nasal Cannula 4.0 07/11/17 20:00 121 07/11/17 20:00 98.4 117 19 123/56 94 Nasal Cannula 4.0 98.4 07/11/17 18:09 129 105/82 07/11/17 18:01 97.7 07/11/17 17:32 105/82 07/11/17 17:31 97.7 07/11/17 16:00 129 07/11/17 16:00 97.7 129 20 105/82 100 97.7 07/11/17 12:52 97.0 07/11/17 12:30 95 113/72 07/11/17 12:14 121 20 97 07/11/17 12:00 125 07/11/17 12:00 97.0 121 20 120/74 100 97.0 Intake and Output 07/11/17 07/12/17 19:00 07:00 Intake Total 655 ml 55 ml Balance 655 ml 55 ml Intake Oral 600 ml IV Total 55 ml 55 ml # Bowel Movements 1 1 Objective General Appearance: WD/WN HEENT: normocephalic, atraumatic, anicteric Respiratory/Chest: loud rhonchi Cardiovascular: normal peripheral pulses, normal rate, regular rhythm Abdomen: normal bowel sounds, soft, non tender, no organomegaly Genitourinary: normal external genitalia Extremities: no cyanosis Skin: no rash, no lesions 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, no motor/sensory deficits Lymphatic: no neck adenopathy, no groin adenopathy Microbiology Date/Time Source Procedure Growth Status 07/10/17 10:00 Lung Right Upper Lobe Gram Stain - Final Resulted 07/10/17 10:00 Aerobic Culture - Preliminary Gram Positive Cocci Resulted 07/10/17 10:00 Lung Right Upper Lobe Anaerobic Culture - Preliminary NO ANAEROBES ISOLATED Resulted Laboratory Tests 07/12/17 11:20: White Blood Count 6.5, Red Blood Count 2.89L, Hemoglobin 9.5L, Hematocrit 30.4L , Mean Corpuscular Volume 105H, Mean Corpuscular Hemoglobin 32.9H, Mean Corpuscular Hemoglobin Concent 31.3L, Red Cell Distribution Width 18.1H, Platelet Count 91L, Mean Platelet Volume 8.3, Neutrophils (%) (Auto) , Lymphocytes (%) (Auto) , Monocytes (%) (Auto) , Eosinophils (%) (Auto) , Basophils (%) (Auto) , Neutrophils % (Manual) [Pending], Lymphocytes % (Manual) [Pending], Platelet Estimate [Pending], Platelet Morphology [Pending], Sodium Level 135L, Potassium Level 4.9, Chloride Level 96L, Carbon Dioxide Level 30, Anion Gap 9, Blood Urea Nitrogen 64H, Creatinine 12.1H, Estimat Glomerular Filtration Rate 5.2, Glucose Level 116H, Calcium Level 8.7 Current Medications Medications (Trade) Dose Ordered Sig/Jose Route PRN Reason Start Time Stop Time Status Last Admin Dose Admin Alprazolam (Xanax) 2 mg DAILYPRN PRN ORAL For Anxiety 07/09/17 15:15 07/16/17 15:14 07/12/17 06:04 Amikacin Protocol (Amikacin pharmacy to dose) 1 ea DAILY PRN MISC Per rx protocol 07/06/17 09:00 08/03/17 15:14 Amikacin Sulfate 1000 mg/Dextrose 114 ml @ 110 mls/hr ONCE IV 07/12/17 11:00 07/12/17 12:03 Amikacin Sulfate 1000 mg/Dextrose 114 ml @ 228 mls/hr FRI-FRI-FRI IV 07/14/17 21:00 07/21/17 20:59 Apixaban (Eliquis) 2.5 mg BID ORAL 07/06/17 18:00 08/05/17 17:59 07/12/17 10:25 Carisoprodol (Soma) 350 mg Q6H PRN ORAL MUSCLE SPASMS 07/06/17 07:00 07/14/17 18:59 07/12/17 10:25 Chlorhexidine Gluconate (Mireille-Hex 2%) 1 applic DAILY@2000 TOPIC 07/06/17 20:00 08/02/17 19:59 07/11/17 20:12 Clonidine HCl (Catapres Tab) 0.1 mg Q4H PRN ORAL bp over 160 syst 07/06/17 07:30 07/19/17 11:29 Dextrose (Dextrose 50%) 25 ml STAT PRN IV HYPOGLYCEMIA 07/09/17 08:30 08/08/17 08:29 Dextrose (Dextrose 50%) 50 ml STAT PRN IV Hypoglycemia 07/09/17 08:30 07/14/17 18:59 Diltiazem HCl (Cardizem) 10 mg Q1H PRN IVP tachycardia 07/08/17 15:30 08/07/17 15:29 07/09/17 22:42 Diltiazem HCl (Cardizem) 30 mg EVERY 6 HOURS ORAL 07/10/17 19:30 08/09/17 19:29 07/12/17 05:58 Docusate Sodium (Colace) 100 mg THREE TIMES A DAY ORAL 07/06/17 09:00 07/18/17 13:00 07/12/17 10:23 Ethambutol HCl (Myambutol) 1,000 mg 3XW ORAL 07/07/17 09:00 07/18/17 23:59 07/11/17 09:54 Hydromorphone HCl (Dilaudid) 2 mg Q4H PRN IVP Severe Pain (Pain Scale 7-10) 07/09/17 12:45 07/16/17 12:44 07/12/17 06:55 Levofloxacin (Levaquin) 750 mg EVERY OTHER DAY@2000 ORAL 07/07/17 20:00 07/14/17 19:59 07/11/17 20:12 Lisinopril (Prinivil) 20 mg BID ORAL 07/06/17 09:00 07/19/17 18:00 07/12/17 10:23 Metoprolol Tartrate (Lopressor) 5 mg Q5MIN X 3 IVP 07/06/17 14:15 08/05/17 14:14 07/07/17 00:38 Metoprolol Tartrate (Lopressor) 100 mg Q12HR ORAL 07/11/17 21:00 08/10/17 20:59 07/12/17 10:23 Nitroglycerin (Ntg) 0.4 mg Q5M PRN SL Prn Chest Pain 07/06/17 04:00 07/19/17 11:29 Ondansetron HCl (Zofran) 4 mg Q6H PRN IVP Nausea & Vomiting 07/06/17 06:30 07/14/17 18:29 07/10/17 15:45 Pantoprazole (Protonix) 40 mg ACBREAKFAST ORAL 07/06/17 06:30 07/15/17 06:29 07/12/17 06:53 Piperacillin Sod/ Tazobactam Sod 2.25 gm/Dextrose 55 ml @ 110 mls/hr Q8HR IVPB 07/08/17 14:00 07/13/17 13:59 07/12/17 05:57 Polyethylene Glycol (Miralax) 17 gm DAILYPRN PRN ORAL Constipation 07/06/17 18:30 07/14/17 18:29 Promethazine HCl/ Codeine (Phenergan with Codeine) 5 ml Q4H PRN ORAL For Cough 07/06/17 06:30 07/22/17 10:30 07/08/17 01:56 Sevelamer Carbonate (Renvela) 2,400 mg THREE TIMES A DAY ORAL 07/06/17 09:00 07/16/17 18:44 07/12/17 10:22 Christine Morgan MD Jul 12, 2017 11:52
[2017-07-12 12:00] VITALS: BP 101/69
--- NOTE | 2017-07-12 12:09 | Nephrology Progress Note ---
Assessment/Plan Problem List: (1) ESRD (end stage renal disease) on dialysis (2) Shortness of breath (3) Anemia Assessment Anemia ESRD , missed HD on admission , admitted with high K and pulmonary edema Acute respiratory distress due to volume overload elevated troponin r/o ACS h/o COPD ? exacerbation HTN urgency Cardiomyopathy L AICD anemia of chronic kidney disease Hx of CVA Plan Plan: HD next 07/14 Max UF Transfused Phos binders BP meds adjustment Optimize cardiac status per orders Subjective ROS Limited/Unobtainable: No Constitutional: Reports: malaise, weakness Objective Objective Last 24 Hour Vital Signs Date Time Temp Pulse Resp B/P (MAP) Pulse Ox O2 Delivery O2 Flow Rate FiO2 07/12/17 10:25 97.7 07/12/17 10:23 96 118/78 07/12/17 10:23 118/78 07/12/17 08:00 91 07/12/17 08:00 97.7 96 20 118/78 95 Nasal Cannula 4.0 97.7 07/12/17 07:18 95 Nasal Cannula 4.0 36 07/12/17 07:18 Nasal Cannula 4.0 36 07/12/17 07:18 88 22 Nasal Cannula 4.0 36 07/12/17 05:58 119 117/80 07/12/17 04:00 99.7 121 19 117/78 100 Nasal Cannula 4.0 99.7 07/12/17 04:00 107 07/12/17 00:06 124 116/84 07/12/17 00:00 121 07/12/17 00:00 99.7 124 20 116/84 93 Nasal Cannula 4.0 99.7 07/11/17 21:26 117 123/56 07/11/17 20:27 Nasal Cannula 4.0 36 07/11/17 20:27 95 Nasal Cannula 4.0 36 07/11/17 20:27 129 22 Nasal Cannula 4.0 07/11/17 20:00 121 07/11/17 20:00 98.4 117 19 123/56 94 Nasal Cannula 4.0 98.4 07/11/17 18:09 129 105/82 07/11/17 18:01 97.7 07/11/17 17:32 105/82 07/11/17 17:31 97.7 07/11/17 16:00 129 07/11/17 16:00 97.7 129 20 105/82 100 97.7 07/11/17 12:52 97.0 07/11/17 12:30 95 113/72 07/11/17 12:14 121 20 97 Intake and Output 07/11/17 07/12/17 19:00 07:00 Intake Total 655 ml 55 ml Balance 655 ml 55 ml Intake Oral 600 ml IV Total 55 ml 55 ml # Bowel Movements 1 1 Laboratory Tests 07/12/17 11:20: White Blood Count 6.5, Red Blood Count 2.89L, Hemoglobin 9.5L, Hematocrit 30.4L , Mean Corpuscular Volume 105H, Mean Corpuscular Hemoglobin 32.9H, Mean Corpuscular Hemoglobin Concent 31.3L, Red Cell Distribution Width 18.1H, Platelet Count 91L, Mean Platelet Volume 8.3, Neutrophils (%) (Auto) , Lymphocytes (%) (Auto) , Monocytes (%) (Auto) , Eosinophils (%) (Auto) , Basophils (%) (Auto) , Neutrophils % (Manual) [Pending], Lymphocytes % (Manual) [Pending], Platelet Estimate [Pending], Platelet Morphology [Pending], Sodium Level 135L, Potassium Level 4.9, Chloride Level 96L, Carbon Dioxide Level 30, Anion Gap 9, Blood Urea Nitrogen 64H, Creatinine 12.1H, Estimat Glomerular Filtration Rate 5.2, Glucose Level 116H, Calcium Level 8.7 Height (Feet): 5 Height (Inches): 7.00 Weight (Pounds): 233 General Appearance: no apparent distress, lethargic Cardiovascular: tachycardia Respiratory/Chest: decreased breath sounds Abdomen: distended Objective no change LIAM MONTELONGO Jul 12, 2017 12:09
--- NOTE | 2017-07-12 13:36 | General Progress Note ---
Assessment/Plan Assessment/Plan Assessment - gallstones - abnormal LFT - suspect due to cirrhosis +/- meds - Periodic N/V with abnormal GB ultrasound, ? possibly biliary colic - patient declined HIDA - Anemia, multifactorial - OB (+) Stool - patient declined EGD/Colon - ESRD/HD - DM - HTN - COPD - Cavitary lung disease - Thrombocytopenia - cirrhotic appearing liver on CT - Hepatitis C Ab (+)/ PCR (-) - Poor prognosis Recommendations - PO as tolerated - follow symptoms and exam - monitor LFT - avoid hepatotoxic meds - abx per ID - transfuse PRN - Acid blockade Subjective Allergies: Coded Allergies: IODINE AND IODIDE CONTAINING PRODUC (Verified Allergy, Mild, itching and pruritis, 06/25/17) Uncoded Allergies: CONTRAST/DYE (Allergy, Intermediate, PRURITIS AND ITCHING, 06/25/17) Subjective above noted tolerating PO no vomiting Objective Last 24 Hour Vital Signs Date Time Temp Pulse Resp B/P (MAP) Pulse Ox O2 Delivery O2 Flow Rate FiO2 07/12/17 12:14 104 101/69 07/12/17 12:00 97.6 86 20 101/69 94 Nasal Cannula 2.0 97.6 07/12/17 10:25 97.7 07/12/17 10:23 96 118/78 07/12/17 10:23 118/78 07/12/17 08:00 91 07/12/17 08:00 97.7 96 20 118/78 95 Nasal Cannula 4.0 97.7 07/12/17 07:18 95 Nasal Cannula 4.0 36 07/12/17 07:18 Nasal Cannula 4.0 36 07/12/17 07:18 88 22 Nasal Cannula 4.0 36 07/12/17 05:58 119 117/80 07/12/17 04:00 99.7 121 19 117/78 100 Nasal Cannula 4.0 99.7 07/12/17 04:00 107 07/12/17 00:06 124 116/84 07/12/17 00:00 121 07/12/17 00:00 99.7 124 20 116/84 93 Nasal Cannula 4.0 99.7 07/11/17 21:26 117 123/56 07/11/17 20:27 Nasal Cannula 4.0 36 07/11/17 20:27 95 Nasal Cannula 4.0 36 07/11/17 20:27 129 22 Nasal Cannula 4.0 07/11/17 20:00 121 07/11/17 20:00 98.4 117 19 123/56 94 Nasal Cannula 4.0 98.4 07/11/17 18:09 129 105/82 07/11/17 18:01 97.7 07/11/17 17:32 105/82 07/11/17 17:31 97.7 07/11/17 16:00 129 07/11/17 16:00 97.7 129 20 105/82 100 97.7 Intake and Output 07/11/17 07/12/17 19:00 07:00 Intake Total 655 ml 55 ml Balance 655 ml 55 ml Intake Oral 600 ml IV Total 55 ml 55 ml # Bowel Movements 1 1 Laboratory Tests 07/12/17 11:20: White Blood Count 6.5, Red Blood Count 2.89L, Hemoglobin 9.5L, Hematocrit 30.4L , Mean Corpuscular Volume 105H, Mean Corpuscular Hemoglobin 32.9H, Mean Corpuscular Hemoglobin Concent 31.3L, Red Cell Distribution Width 18.1H, Platelet Count 91L, Mean Platelet Volume 8.3, Neutrophils (%) (Auto) , Lymphocytes (%) (Auto) , Monocytes (%) (Auto) , Eosinophils (%) (Auto) , Basophils (%) (Auto) , Differential Total Cells Counted 100, Neutrophils % ( Manual) 46, Lymphocytes % (Manual) 18L, Monocytes % (Manual) 25H, Eosinophils % (Manual) 11H, Basophils % (Manual) 0, Band Neutrophils 0, Platelet Estimate DecreasedL, Platelet Morphology Normal, Hypochromasia 1+, Anisocytosis 1+, Macrocytosis 1+, Sodium Level 135L, Potassium Level 4.9, Chloride Level 96L, Carbon Dioxide Level 30, Anion Gap 9, Blood Urea Nitrogen 64H, Creatinine 12.1H , Estimat Glomerular Filtration Rate 5.2, Glucose Level 116H, Calcium Level 8.7 Height (Feet): 5 Height (Inches): 7.00 Weight (Pounds): 233 Objective WDWN AA Man NCAT supple CTA RRR Soft mildly distended, (+) improved RUQ TTP, (+) trunk edema (+) leg edema PERCY JOYNER Jul 12, 2017 13:36
--- NOTE | 2017-07-12 14:46 | Internal Med Progress Note ---
Subjective Date of Service: Jul 12, 2017 Physician Name Zoey Pires Attending Physician Chaitanya Weinstein MD Current Medications Medications (Trade) Dose Ordered Sig/Jose Route PRN Reason Start Time Stop Time Status Last Admin Dose Admin Alprazolam (Xanax) 2 mg DAILYPRN PRN ORAL For Anxiety 07/09/17 15:15 07/16/17 15:14 07/12/17 06:04 Amikacin Protocol (Amikacin pharmacy to dose) 1 ea DAILY PRN MISC Per rx protocol 07/06/17 09:00 08/03/17 15:14 Amikacin Sulfate 1000 mg/Dextrose 114 ml @ 228 mls/hr FRI-FRI-FRI IV 07/14/17 21:00 07/21/17 20:59 Apixaban (Eliquis) 2.5 mg BID ORAL 07/06/17 18:00 08/05/17 17:59 07/12/17 10:25 Carisoprodol (Soma) 350 mg Q6H PRN ORAL MUSCLE SPASMS 07/06/17 07:00 07/14/17 18:59 07/12/17 10:25 Chlorhexidine Gluconate (Mireille-Hex 2%) 1 applic DAILY@2000 TOPIC 07/06/17 20:00 08/02/17 19:59 07/11/17 20:12 Clonidine HCl (Catapres Tab) 0.1 mg Q4H PRN ORAL bp over 160 syst 07/06/17 07:30 07/19/17 11:29 Dextrose (Dextrose 50%) 25 ml STAT PRN IV HYPOGLYCEMIA 07/09/17 08:30 08/08/17 08:29 Dextrose (Dextrose 50%) 50 ml STAT PRN IV Hypoglycemia 07/09/17 08:30 07/14/17 18:59 Diltiazem HCl (Cardizem) 10 mg Q1H PRN IVP tachycardia 07/08/17 15:30 08/07/17 15:29 07/09/17 22:42 Diltiazem HCl (Cardizem) 30 mg EVERY 6 HOURS ORAL 07/10/17 19:30 08/09/17 19:29 07/12/17 12:14 Docusate Sodium (Colace) 100 mg THREE TIMES A DAY ORAL 07/06/17 09:00 07/18/17 13:00 07/12/17 14:00 Ethambutol HCl (Myambutol) 1,000 mg 3XW ORAL 07/07/17 09:00 07/18/17 23:59 07/11/17 09:54 Hydromorphone HCl (Dilaudid) 2 mg Q4H PRN IVP Severe Pain (Pain Scale 7-10) 07/09/17 12:45 07/16/17 12:44 07/12/17 14:00 Levofloxacin (Levaquin) 750 mg EVERY OTHER DAY@2000 ORAL 07/07/17 20:00 07/14/17 19:59 07/11/17 20:12 Lisinopril (Prinivil) 20 mg BID ORAL 07/06/17 09:00 07/19/17 18:00 07/12/17 10:23 Metoprolol Tartrate (Lopressor) 5 mg Q5MIN X 3 IVP 07/06/17 14:15 08/05/17 14:14 07/07/17 00:38 Metoprolol Tartrate (Lopressor) 100 mg Q12HR ORAL 07/11/17 21:00 08/10/17 20:59 07/12/17 10:23 Nitroglycerin (Ntg) 0.4 mg Q5M PRN SL Prn Chest Pain 07/06/17 04:00 07/19/17 11:29 Ondansetron HCl (Zofran) 4 mg Q6H PRN IVP Nausea & Vomiting 07/06/17 06:30 07/14/17 18:29 07/10/17 15:45 Pantoprazole (Protonix) 40 mg ACBREAKFAST ORAL 07/06/17 06:30 07/15/17 06:29 07/12/17 06:53 Piperacillin Sod/ Tazobactam Sod 2.25 gm/Dextrose 55 ml @ 110 mls/hr Q8HR IVPB 07/08/17 14:00 07/13/17 13:59 07/12/17 13:59 Polyethylene Glycol (Miralax) 17 gm DAILYPRN PRN ORAL Constipation 07/06/17 18:30 07/14/17 18:29 Promethazine HCl/ Codeine (Phenergan with Codeine) 5 ml Q4H PRN ORAL For Cough 07/06/17 06:30 4/17/18 10:30 07/08/17 01:56 Sevelamer Carbonate (Renvela) 2,400 mg THREE TIMES A DAY ORAL 07/06/17 09:00 07/16/17 18:44 07/12/17 14:00 Allergies: Coded Allergies: IODINE AND IODIDE CONTAINING PRODUC (Verified Allergy, Mild, itching and pruritis, 06/25/17) Uncoded Allergies: CONTRAST/DYE (Allergy, Intermediate, PRURITIS AND ITCHING, 06/25/17) ROS Limited/Unobtainable: No Constitutional: Reports: no symptoms HEENT: Reports: no symptoms Cardiovascular: Reports: no symptoms Respiratory: Reports: no symptoms Gastrointestinal/Abdominal: Reports: no symptoms Genitourinary: Reports: no symptoms Neurologic/Psychiatric: Reports: no symptoms Subjective 57 YO M admitted with chest pain and shortness of breath. Now pneumonia and candelaria heart failure. Back on nasal canula. Cover for Int Misbah-Dr Weinstein. Now atrial flutter improving ventricular rate. C/O diarrhea Objective Last Vital Signs Date Time Temp Pulse Resp B/P (MAP) Pulse Ox O2 Delivery O2 Flow Rate FiO2 07/12/17 12:14 104 101/69 07/12/17 12:00 97.6 20 94 Nasal Cannula 2.0 97.6 07/12/17 07:18 36 Laboratory Tests Test 07/12/17 11:20 White Blood Count 6.5 K/UL (4.8-10.8) Red Blood Count 2.89 M/UL (4.70-6.10) L Hemoglobin 9.5 G/DL (14.2-18.0) L Hematocrit 30.4 % (42.0-52.0) L Mean Corpuscular Volume 105 FL (80-99) H Mean Corpuscular Hemoglobin 32.9 PG (27.0-31.0) H Mean Corpuscular Hemoglobin Concent 31.3 G/DL (32.0-36.0) L Red Cell Distribution Width 18.1 % (11.6-14.8) H Platelet Count 91 K/UL (150-450) L Mean Platelet Volume 8.3 FL (6.5-10.1) Neutrophils (%) (Auto) % (45.0-75.0) Lymphocytes (%) (Auto) % (20.0-45.0) Monocytes (%) (Auto) % (1.0-10.0) Eosinophils (%) (Auto) % (0.0-3.0) Basophils (%) (Auto) % (0.0-2.0) Differential Total Cells Counted 100 Neutrophils % (Manual) 46 % (45-75) Lymphocytes % (Manual) 18 % (20-45) L Monocytes % (Manual) 25 % (1-10) H Eosinophils % (Manual) 11 % (0-3) H Basophils % (Manual) 0 % (0-2) Band Neutrophils 0 % (0-8) Platelet Estimate Decreased L Platelet Morphology Normal Hypochromasia 1+ Anisocytosis 1+ Macrocytosis 1+ Sodium Level 135 MMOL/L (136-145) L Potassium Level 4.9 MMOL/L (3.5-5.1) Chloride Level 96 MMOL/L (98-107) L Carbon Dioxide Level 30 MMOL/L (21-32) Anion Gap 9 mmol/L (5-15) Blood Urea Nitrogen 64 mg/dL (7-18) H Creatinine 12.1 MG/DL (0.55-1.30) H Estimat Glomerular Filtration Rate 5.2 mL/min (>60) Glucose Level 116 MG/DL (74-106) H Calcium Level 8.7 MG/DL (8.5-10.1) Microbiology Date/Time Source Procedure Growth Status 07/10/17 10:00 Lung Right Upper Lobe Gram Stain - Final Resulted 07/10/17 10:00 Aerobic Culture - Preliminary Gram Positive Cocci Resulted 07/10/17 10:00 Lung Right Upper Lobe Anaerobic Culture - Preliminary NO ANAEROBES ISOLATED Resulted Intake and Output 07/11/17 07/12/17 19:00 07:00 Intake Total 655 ml 55 ml Balance 655 ml 55 ml Intake Oral 600 ml IV Total 55 ml 55 ml # Bowel Movements 1 1 Objective General Appearance: WD/WN, alert, moderate distress EENT: PERRL/EOMI, normal ENT inspection Neck: non-tender, normal alignment, supple, normal inspection Cardiovascular: Tachycardia; normal peripheral pulses, normal rate, regular rhythm, no gallop/murmur, no JVD Respiratory/Chest: Nasal canula; respiratory distress, crackles/rales, rhonchi - bilaterally, expiratory wheezing Abdomen: normal bowel sounds, non tender, soft, no organomegaly, no mass Extremities: normal range of motion 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 (2) Respiratory failure Assessment & Plan: CHF and Pneumonia. Currently on nasal canula. See pulmonay note. (3) Pleuritic chest pain (4) Hemoptysis Assessment & Plan: Due to pneumonia (5) Pneumonia Assessment & Plan: Providencia and pseudamonas. RUL and cavitary. Concerning for TB. Await AFB cultures-see ID consult. Continue vanco and ethambutol per ID. Continue rocephin, micafungin, flagyl, amikacin, levaquin, and rifampin (6) Shortness of breath (7) ESRD (end stage renal disease) on dialysis Assessment & Plan: See nephrology note. Next Hemodialysis 07/09/17 per nephrology (8) Hyperkalemia Assessment & Plan: Due to renal failure. Hemodialysis 06/12/17 per nephrology (9) COPD (chronic obstructive pulmonary disease) (10) HTN (hypertension) Assessment & Plan: Continue coreg and lisinopril. (11) CHF (congestive heart failure) (12) Elevated troponin Assessment & Plan: ?due to renal failure? See cardiology note. (13) Intractable abdominal pain Assessment & Plan: See surgery note. Await CT abdomen (14) Conjunctivitis Assessment & Plan: start tobramycin (15) Diarrhea Assessment & Plan: Send stool for C. Diff Status: progressing Assessment/Plan Discharge planning - coordination with [facility] pending ZOEY PIRES Jul 12, 2017 14:46
--- NOTE | 2017-07-12 15:48 | Cardiology Progress Note ---
Assessment/Plan Assessment/Plan atrial flutter 2:1 (or atrial tachycardia, reentry) heart rate above 100, considering the aptient in heart failure, will give one dose of digoxin (he is on hemodyalysis). Subjective Subjective the patient is resting, sitting in bed, still has a lot of dyspbea eating little by little Objective Last 24 Hour Vital Signs Date Time Temp Pulse Resp B/P (MAP) Pulse Ox O2 Delivery O2 Flow Rate FiO2 07/12/17 12:14 104 101/69 07/12/17 12:00 97.6 86 20 101/69 94 Nasal Cannula 2.0 97.6 07/12/17 12:00 104 07/12/17 10:25 97.7 07/12/17 10:23 96 118/78 07/12/17 10:23 118/78 07/12/17 08:00 91 07/12/17 08:00 97.7 96 20 118/78 95 Nasal Cannula 4.0 97.7 07/12/17 07:18 95 Nasal Cannula 4.0 36 07/12/17 07:18 Nasal Cannula 4.0 36 07/12/17 07:18 88 22 Nasal Cannula 4.0 36 07/12/17 05:58 119 117/80 07/12/17 04:00 99.7 121 19 117/78 100 Nasal Cannula 4.0 99.7 07/12/17 04:00 107 07/12/17 00:06 124 116/84 07/12/17 00:00 121 07/12/17 00:00 99.7 124 20 116/84 93 Nasal Cannula 4.0 99.7 07/11/17 21:26 117 123/56 07/11/17 20:27 Nasal Cannula 4.0 36 07/11/17 20:27 95 Nasal Cannula 4.0 36 07/11/17 20:27 129 22 Nasal Cannula 4.0 07/11/17 20:00 121 07/11/17 20:00 98.4 117 19 123/56 94 Nasal Cannula 4.0 98.4 07/11/17 18:09 129 105/82 07/11/17 18:01 97.7 07/11/17 17:32 105/82 07/11/17 17:31 97.7 07/11/17 16:00 129 07/11/17 16:00 97.7 129 20 105/82 100 97.7 General Appearance: lethargic EENT: PERRL/EOMI Neck: JVD Rhythm: other - atrial flutter 2:1 Cardiovascular: tachycardia Respiratory/Chest: crackles/rales Abdomen: decreased bowel sounds Extremities: moderate edema Intake and Output 07/11/17 07/12/17 19:00 07:00 Intake Total 655 ml 55 ml Balance 655 ml 55 ml Intake Oral 600 ml IV Total 55 ml 55 ml # Bowel Movements 1 1 Laboratory Tests Test 07/12/17 11:20 White Blood Count 6.5 K/UL (4.8-10.8) Red Blood Count 2.89 M/UL (4.70-6.10) L Hemoglobin 9.5 G/DL (14.2-18.0) L Hematocrit 30.4 % (42.0-52.0) L Mean Corpuscular Volume 105 FL (80-99) H Mean Corpuscular Hemoglobin 32.9 PG (27.0-31.0) H Mean Corpuscular Hemoglobin Concent 31.3 G/DL (32.0-36.0) L Red Cell Distribution Width 18.1 % (11.6-14.8) H Platelet Count 91 K/UL (150-450) L Mean Platelet Volume 8.3 FL (6.5-10.1) Neutrophils (%) (Auto) % (45.0-75.0) Lymphocytes (%) (Auto) % (20.0-45.0) Monocytes (%) (Auto) % (1.0-10.0) Eosinophils (%) (Auto) % (0.0-3.0) Basophils (%) (Auto) % (0.0-2.0) Differential Total Cells Counted 100 Neutrophils % (Manual) 46 % (45-75) Lymphocytes % (Manual) 18 % (20-45) L Monocytes % (Manual) 25 % (1-10) H Eosinophils % (Manual) 11 % (0-3) H Basophils % (Manual) 0 % (0-2) Band Neutrophils 0 % (0-8) Platelet Estimate Decreased L Platelet Morphology Normal Hypochromasia 1+ Anisocytosis 1+ Macrocytosis 1+ Sodium Level 135 MMOL/L (136-145) L Potassium Level 4.9 MMOL/L (3.5-5.1) Chloride Level 96 MMOL/L (98-107) L Carbon Dioxide Level 30 MMOL/L (21-32) Anion Gap 9 mmol/L (5-15) Blood Urea Nitrogen 64 mg/dL (7-18) H Creatinine 12.1 MG/DL (0.55-1.30) H Estimat Glomerular Filtration Rate 5.2 mL/min (>60) Glucose Level 116 MG/DL (74-106) H Calcium Level 8.7 MG/DL (8.5-10.1) Microbiology Date/Time Source Procedure Growth Status 07/10/17 10:00 Lung Right Upper Lobe Gram Stain - Final Resulted 07/10/17 10:00 Aerobic Culture - Preliminary Gram Positive Cocci Resulted 07/10/17 10:00 Lung Right Upper Lobe Anaerobic Culture - Preliminary NO ANAEROBES ISOLATED Resulted Shana Barclay MD Jul 12, 2017 15:48
[2017-07-12 16:00] VITALS: BP 107/72
[2017-07-12] MEDS ORDERED: Digoxin 0.5mg/2ml Inj IVP ONE (17:00)
[2017-07-12 20:00] VITALS: BP 118/77
[2017-07-12] MEDS: Dyna-Hex 2% Top Sol 2oz TOPIC SCH (22:21)
--- NOTE | 2017-07-12 23:45 | General Progress Note ---
Assessment/Plan Assessment/Plan #. Anemia secondary to chronic disease. --> Hemoglobin levels have been stable. No blood transfusion required at this time. --> S/P abd CAT scan revealing evidence of hepatic cirrhosis. --> Continue to closely monitor and trend cbc daily. --> Anemia workup completed and reviewed. Iron 42, TIBC 180, Ferritin 593, B12 876. --> Ferritin is >500, hgb goal is >7 --> Anemia w/u has been reviewed --> ++Occult blood. Consider GI Services and Recs. #. Thrombocytopenia. --> Hepatitis C ab ++, PCR - --> Monitor platelet level. Transfuse if platelet count <20k --> Levels improving. Continue to trend daily. #. Left leg dvt --> acute onset, will need to review final duplex results --> begin on apixaban daily x 3 months, low h/h will need to monitor closely --> okay to change to different anticoagulant if renal clearance an issue --> If h/h downtrends below 7.5, consider ivc filter placement. --> Hemoglobin currently >7.5 # Hepatosplenomegaly. Ascites. There is also evidence of generalized anasarca, with pleural fluid and generalized subcutaneous edema --> Abd pain improved on pain management #. Anemia of kidney disease --> HD as needed per nephrology team --> Monitor closely. --> Does not require iron at this time #. Generalized body ache related to fluid overload. #. End-stage renal disease, on hemodialysis as needed --> Monitor. S/P HD. #. Cardiomegaly. S/P Chest Xray --> Persistent but slightly decreased size of known right lung cavitary lesion. --> Persistent extensive interstitial and bilateral airspace opacities. --> Edema present. #. Poor prognosis. Subjective Date patient seen: Jul 11, 2017 Constitutional: Denies: no symptoms, chills, diaphoresis, fever, malaise, weakness, other HEENT: Denies: no symptoms, eye pain, blurred vision, tearing, double vision, ear pain, ear discharge, nose pain, nose congestion, throat pain, throat swelling, mouth pain, mouth swelling, other Cardiovascular: Denies: no symptoms, chest pain, edema, irregular heart rate, lightheadedness, palpitations, syncope, other Respiratory: Denies: no symptoms, cough, orthopnea, shortness of breath, SOB with excertion, SOB at rest, sputum, stridor, wheezing, other Gastrointestinal/Abdominal: Denies: no symptoms, abdomen distended, abdominal pain, black stools, tarry stools, blood in stool, constipated, diarrhea, difficulty swallowing, nausea, poor appetite, poor fluid intake, rectal bleeding , vomiting, other Genitourinary: Denies: no symptoms, burning, discharge, frequency, flank pain, hematuria, incontinence, pain, urgency, other Neurologic/Psychiatric: Denies: no symptoms, anxiety, depressed, emotional problems, headache, numbness, paresthesia, pre-existing deficit, seizure, tingling, tremors, weakness, other Hematologic/Lymphatic: Reports: anemia Allergies: Coded Allergies: IODINE AND IODIDE CONTAINING PRODUC (Verified Allergy, Mild, itching and pruritis, 06/25/17) Uncoded Allergies: CONTRAST/DYE (Allergy, Intermediate, PRURITIS AND ITCHING, 06/25/17) Subjective No new events overnight. H/H stable. Objective Last 24 Hour Vital Signs Date Time Temp Pulse Resp B/P (MAP) Pulse Ox O2 Delivery O2 Flow Rate FiO2 07/12/17 23:15 123 118/77 07/12/17 22:21 123 118/77 07/12/17 20:00 97.7 123 20 118/77 96 Nasal Cannula 2.0 97.7 07/12/17 19:28 97 22 Nasal Cannula 4.0 36 07/12/17 19:28 95 Nasal Cannula 4.0 36 07/12/17 19:28 Nasal Cannula 4.0 36 07/12/17 19:11 96.6 07/12/17 18:16 126 07/12/17 18:12 109 107/72 07/12/17 18:12 96.6 07/12/17 18:00 107/72 07/12/17 16:00 96.6 108 20 107/72 96 Nasal Cannula 2.0 96.6 07/12/17 16:00 109 07/12/17 12:14 104 101/69 07/12/17 12:00 97.6 86 20 101/69 94 Nasal Cannula 2.0 97.6 07/12/17 12:00 104 07/12/17 10:25 97.7 07/12/17 10:23 96 118/78 07/12/17 10:23 118/78 07/12/17 08:00 91 07/12/17 08:00 97.7 96 20 118/78 95 Nasal Cannula 4.0 97.7 07/12/17 07:18 95 Nasal Cannula 4.0 36 07/12/17 07:18 Nasal Cannula 4.0 36 07/12/17 07:18 88 22 Nasal Cannula 4.0 36 07/12/17 05:58 119 117/80 07/12/17 04:00 99.7 121 19 117/78 100 Nasal Cannula 4.0 99.7 07/12/17 04:00 107 07/12/17 00:06 124 116/84 07/12/17 00:00 121 07/12/17 00:00 99.7 124 20 116/84 93 Nasal Cannula 4.0 99.7 Intake and Output 07/11/17 07/12/17 19:00 07:00 Intake Total 655 ml 55 ml Balance 655 ml 55 ml Intake Oral 600 ml IV Total 55 ml 55 ml # Bowel Movements 1 1 Laboratory Tests 07/12/17 11:20: White Blood Count 6.5, Red Blood Count 2.89L, Hemoglobin 9.5L, Hematocrit 30.4L , Mean Corpuscular Volume 105H, Mean Corpuscular Hemoglobin 32.9H, Mean Corpuscular Hemoglobin Concent 31.3L, Red Cell Distribution Width 18.1H, Platelet Count 91L, Mean Platelet Volume 8.3, Neutrophils (%) (Auto) , Lymphocytes (%) (Auto) , Monocytes (%) (Auto) , Eosinophils (%) (Auto) , Basophils (%) (Auto) , Differential Total Cells Counted 100, Neutrophils % ( Manual) 46, Lymphocytes % (Manual) 18L, Monocytes % (Manual) 25H, Eosinophils % (Manual) 11H, Basophils % (Manual) 0, Band Neutrophils 0, Platelet Estimate DecreasedL, Platelet Morphology Normal, Hypochromasia 1+, Anisocytosis 1+, Macrocytosis 1+, Sodium Level 135L, Potassium Level 4.9, Chloride Level 96L, Carbon Dioxide Level 30, Anion Gap 9, Blood Urea Nitrogen 64H, Creatinine 12.1H , Estimat Glomerular Filtration Rate 5.2, Glucose Level 116H, Calcium Level 8.7 Height (Feet): 5 Height (Inches): 7.00 Weight (Pounds): 233 General Appearance: confused Respiratory/Chest: decreased breath sounds Edema: trace edema Irving Parker MD Jul 12, 2017 23:45
[2017-07-13] VITALS (7 sets, daily range): BP systolic 115–131; BP diastolic 58–91
[2017-07-13] MEDS: ALPRAZolam 0.5mg tab ORAL PRN (02:37)
[2017-07-13] MEDS: Piperacillin/Tazobactam 2.25 GM in D5W 55 ML IVPB SCH (06:31)
[2017-07-13] MEDS: dilTIAZem HCl 30mg tab ORAL SCH ×3 (06:32→17:45)
[2017-07-13] MEDS: Lisinopril 20mg tab ORAL SCH ×2 (08:39→17:30)
[2017-07-13] MEDS: Eliquis 2.5mg tablet ORAL SCH ×2 (08:39→17:28)
[2017-07-13] MEDS: Docusate 100mg cap ORAL SCH ×3 (08:39→17:40)
[2017-07-13 09:18] LABS: HEMATOCRIT 31.1 % (42.0-52.0); HEMOGLOBIN 9.2 G/DL (14.2-18.0); MEAN CORPUSCULAR VOLUME 107 FL (80-99); PLATELET COUNT 83 K/UL (150-450); RED CELL DISTRIBUTION WIDTH 18.4 % (11.6-14.8); WHITE BLOOD COUNT 5.8 K/UL (4.8-10.8)
[2017-07-13 10:08] LABS: ALANINE AMINOTRANSFERASE 21 U/L (12-78); ALBUMIN 2.2 G/DL (3.4-5.0); ALBUMIN/GLOBULIN RATIO 0.5 (1.0-2.7); ALKALINE PHOSPHATASE 90 U/L (46-116); ANION GAP 11 mmol/L (5-15); ASPARTATE AMINO TRANSFERASE 41 U/L (15-37); BILIRUBIN,TOTAL 1.3 MG/DL (0.2-1.0); BLOOD UREA NITROGEN 72 mg/dL (7-18); CALCIUM 8.6 MG/DL (8.5-10.1); CARBON DIOXIDE 28 MMOL/L (21-32); CHLORIDE 97 MMOL/L (98-107); CREATININE 13.6 MG/DL (0.55-1.30); POTASSIUM 5.1 MMOL/L (3.5-5.1); SODIUM 136 MMOL/L (136-145)
[2017-07-13 10:10] LABS: BILIRUBIN,DIRECT 0.8 MG/DL (0.0-0.3)
--- NOTE | 2017-07-13 10:56 | Pulmonology Progress Note ---
Assessment/Plan Problems: (1) Respiratory failure (2) Pneumonia (3) Hemoptysis (4) Anemia (5) ESRD (end stage renal disease) on dialysis (6) HTN (hypertension) Assessment/Plan still afib, around 120 continue telemetry, cardizem IV prn c/o generalized pain slowly improving repeat cxr in two days onNC HD by sulfonator operator prbc prn on anti TB meds wtih IV Amikacin, ethambutol BAL showing GPC and Abby Subjective ROS Limited/Unobtainable: No Constitutional: Reports: no symptoms HEENT: Repors: no symptoms Allergies: Coded Allergies: IODINE AND IODIDE CONTAINING PRODUC (Verified Allergy, Mild, itching and pruritis, 06/25/17) Uncoded Allergies: CONTRAST/DYE (Allergy, Intermediate, PRURITIS AND ITCHING, 06/25/17) Objective Last 24 Hour Vital Signs Date Time Temp Pulse Resp B/P (MAP) Pulse Ox O2 Delivery O2 Flow Rate FiO2 07/13/17 08:39 111 115/58 07/13/17 08:39 115/58 07/13/17 08:20 Nasal Cannula 4.0 36 07/13/17 08:20 97 Nasal Cannula 4.0 36 07/13/17 08:20 111 22 Nasal Cannula 4.0 36 07/13/17 08:00 95 07/13/17 07:59 99.0 65 20 115/58 98 Nasal Cannula 2.0 99.0 07/13/17 06:32 110 115/67 07/13/17 04:00 110 07/13/17 03:23 98.2 78 20 115/67 98 Nasal Cannula 2.0 98.2 07/13/17 00:00 110 07/13/17 00:00 98.1 117 20 131/91 96 Nasal Cannula 2.0 98.1 07/12/17 23:15 123 118/77 07/12/17 22:21 123 118/77 07/12/17 20:00 118 07/12/17 20:00 97.7 123 20 118/77 96 Nasal Cannula 2.0 97.7 07/12/17 19:28 97 22 Nasal Cannula 4.0 36 07/12/17 19:28 95 Nasal Cannula 4.0 36 07/12/17 19:28 Nasal Cannula 4.0 36 07/12/17 19:11 96.6 07/12/17 18:16 126 07/12/17 18:12 109 107/72 07/12/17 18:12 96.6 07/12/17 18:00 107/72 07/12/17 16:00 96.6 108 20 107/72 96 Nasal Cannula 2.0 96.6 07/12/17 16:00 109 07/12/17 12:14 104 101/69 07/12/17 12:00 97.6 86 20 101/69 94 Nasal Cannula 2.0 97.6 07/12/17 12:00 104 Intake and Output 07/12/17 07/13/17 19:00 07:00 Intake Total 929 ml Balance 929 ml Intake Oral 760 ml IV Total 169 ml # Bowel Movements 1 Objective General Appearance: WD/WN HEENT: normocephalic, atraumatic, anicteric Respiratory/Chest: loud rhonchi Cardiovascular: normal peripheral pulses, normal rate, regular rhythm Abdomen: normal bowel sounds, soft, non tender, no organomegaly Genitourinary: normal external genitalia Extremities: no cyanosis Skin: no rash, no lesions Neurologic/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: 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, no motor/sensory deficits Lymphatic: no neck adenopathy, no groin adenopathy Laboratory Tests 07/12/17 11:20: White Blood Count 6.5, Red Blood Count 2.89L, Hemoglobin 9.5L, Hematocrit 30.4L , Mean Corpuscular Volume 105H, Mean Corpuscular Hemoglobin 32.9H, Mean Corpuscular Hemoglobin Concent 31.3L, Red Cell Distribution Width 18.1H, Platelet Count 91L, Mean Platelet Volume 8.3, Neutrophils (%) (Auto) , Lymphocytes (%) (Auto) , Monocytes (%) (Auto) , Eosinophils (%) (Auto) , Basophils (%) (Auto) , Differential Total Cells Counted 100, Neutrophils % ( Manual) 46, Lymphocytes % (Manual) 18L, Monocytes % (Manual) 25H, Eosinophils % (Manual) 11H, Basophils % (Manual) 0, Band Neutrophils 0, Platelet Estimate DecreasedL, Platelet Morphology Normal, Hypochromasia 1+, Anisocytosis 1+, Macrocytosis 1+, Sodium Level 135L, Potassium Level 4.9, Chloride Level 96L, Carbon Dioxide Level 30, Anion Gap 9, Blood Urea Nitrogen 64H, Creatinine 12.1H , Estimat Glomerular Filtration Rate 5.2, Glucose Level 116H, Calcium Level 8.7 07/13/17 08:00: White Blood Count 5.8, Red Blood Count 2.90L, Hemoglobin 9.2L, Hematocrit 31.1L , Mean Corpuscular Volume 107H, Mean Corpuscular Hemoglobin 31.6H, Mean Corpuscular Hemoglobin Concent 29.4L, Red Cell Distribution Width 18.4H, Platelet Count 83L, Mean Platelet Volume 7.9, Neutrophils (%) (Auto) , Lymphocytes (%) (Auto) , Monocytes (%) (Auto) , Eosinophils (%) (Auto) , Basophils (%) (Auto) , Differential Total Cells Counted 100, Neutrophils % ( Manual) 45, Lymphocytes % (Manual) 17L, Monocytes % (Manual) 24H, Eosinophils % (Manual) 14H, Basophils % (Manual) 0, Band Neutrophils 0, Platelet Estimate Adequate, Platelet Morphology Normal, Hypochromasia 1+, Anisocytosis 1+, Macrocytosis 1+, Sodium Level 136, Potassium Level 5.1, Chloride Level 97L, Carbon Dioxide Level 28, Anion Gap 11, Blood Urea Nitrogen 72H, Creatinine 13.6H , Estimat Glomerular Filtration Rate 4.6, Glucose Level 122H, Calcium Level 8.6 , Total Bilirubin 1.3H, Direct Bilirubin 0.8H, Aspartate Amino Transf (AST/SGOT ) 41H, Alanine Aminotransferase (ALT/SGPT) 21, Alkaline Phosphatase 90, Total Protein 6.7, Albumin 2.2L, Globulin 4.5, Albumin/Globulin Ratio 0.5L Current Medications Medications (Trade) Dose Ordered Sig/Jose Route PRN Reason Start Time Stop Time Status Last Admin Dose Admin Alprazolam (Xanax) 2 mg DAILYPRN PRN ORAL For Anxiety 07/09/17 15:15 07/16/17 15:14 07/13/17 02:37 Amikacin Protocol (Amikacin pharmacy to dose) 1 ea DAILY PRN MISC Per rx protocol 07/06/17 09:00 08/03/17 15:14 Amikacin Sulfate 1000 mg/Dextrose 114 ml @ 228 mls/hr MON-WED-FRI IV 07/14/17 21:00 07/21/17 20:59 Apixaban (Eliquis) 2.5 mg BID ORAL 07/06/17 18:00 08/05/17 17:59 07/13/17 08:39 Carisoprodol (Soma) 350 mg Q6H PRN ORAL MUSCLE SPASMS 07/06/17 07:00 07/14/17 18:59 07/12/17 18:12 Chlorhexidine Gluconate (Mireille-Hex 2%) 1 applic DAILY@1999 TOPIC 07/06/17 20:00 08/02/17 19:59 07/12/17 22:21 Clonidine HCl (Catapres Tab) 0.1 mg Q4H PRN ORAL bp over 160 syst 07/06/17 07:30 07/19/17 11:29 Dextrose (Dextrose 50%) 25 ml STAT PRN IV HYPOGLYCEMIA 07/09/17 08:30 08/08/17 08:29 Dextrose (Dextrose 50%) 50 ml STAT PRN IV Hypoglycemia 07/09/17 08:30 07/14/17 18:59 Diltiazem HCl (Cardizem) 10 mg Q1H PRN IVP tachycardia 07/08/17 15:30 08/07/17 15:29 07/09/17 22:42 Diltiazem HCl (Cardizem) 30 mg EVERY 6 HOURS ORAL 07/10/17 19:30 08/09/17 19:29 07/13/17 06:32 Docusate Sodium (Colace) 100 mg THREE TIMES A DAY ORAL 07/06/17 09:00 07/18/17 13:00 07/13/17 08:39 Ethambutol HCl (Myambutol) 1,000 mg 3XW ORAL 07/07/17 09:00 07/18/17 23:59 07/11/17 09:54 Hydromorphone HCl (Dilaudid) 2 mg Q4H PRN IVP Severe Pain (Pain Scale 7-10) 07/09/17 12:45 07/16/17 12:44 07/13/17 08:41 Levofloxacin (Levaquin) 750 mg EVERY OTHER DAY@1999 ORAL 07/07/17 20:00 07/14/17 19:59 07/11/17 20:12 Lisinopril (Prinivil) 20 mg BID ORAL 07/06/17 09:00 07/19/17 18:00 07/13/17 08:39 Metoprolol Tartrate (Lopressor) 5 mg Q5MIN X 3 IVP 07/06/17 14:15 08/05/17 14:14 07/07/17 00:38 Metoprolol Tartrate (Lopressor) 100 mg Q12HR ORAL 07/11/17 21:00 08/10/17 20:59 07/13/17 08:39 Nitroglycerin (Ntg) 0.4 mg Q5M PRN SL Prn Chest Pain 07/06/17 04:00 07/19/17 11:29 Ondansetron HCl (Zofran) 4 mg Q6H PRN IVP Nausea & Vomiting 07/06/17 06:30 07/14/17 18:29 07/10/17 15:45 Pantoprazole (Protonix) 40 mg ACBREAKFAST ORAL 07/06/17 06:30 07/15/17 06:29 07/13/17 06:31 Piperacillin Sod/ Tazobactam Sod 2.25 gm/Dextrose 55 ml @ 110 mls/hr Q8HR IVPB 07/08/17 14:00 07/13/17 13:59 07/13/17 06:31 Polyethylene Glycol (Miralax) 17 gm DAILYPRN PRN ORAL Constipation 07/06/17 18:30 07/14/17 18:29 Promethazine HCl/ Codeine (Phenergan with Codeine) 5 ml Q4H PRN ORAL For Cough 07/06/17 06:30 07/22/17 10:30 07/08/17 01:56 Sevelamer Carbonate (Renvela) 2,400 mg THREE TIMES A DAY ORAL 07/06/17 09:00 07/16/17 18:44 07/13/17 08:39 Christine Morgan MD Jul 13, 2017 10:56
--- NOTE | 2017-07-13 12:25 | Nephrology Progress Note ---
Assessment/Plan Problem List: (1) ESRD (end stage renal disease) on dialysis (2) Shortness of breath (3) Anemia Assessment Anemia ESRD , missed HD on admission , admitted with high K and pulmonary edema Acute respiratory distress due to volume overload elevated troponin r/o ACS h/o COPD ? exacerbation HTN urgency Cardiomyopathy L AICD anemia of chronic kidney disease Hx of CVA Plan Plan: HD next 07/14 Max UF Transfused Phos binders BP meds adjustment Optimize cardiac status per orders Subjective ROS Limited/Unobtainable: No Constitutional: Reports: malaise, weakness Objective Objective Last 24 Hour Vital Signs Date Time Temp Pulse Resp B/P (MAP) Pulse Ox O2 Delivery O2 Flow Rate FiO2 07/13/17 12:06 98.1 91 21 116/86 98 98.1 07/13/17 08:39 111 115/58 07/13/17 08:39 115/58 07/13/17 08:20 Nasal Cannula 4.0 36 07/13/17 08:20 97 Nasal Cannula 4.0 36 07/13/17 08:20 111 22 Nasal Cannula 4.0 36 07/13/17 08:00 95 07/13/17 07:59 99.0 65 20 115/58 98 Nasal Cannula 2.0 99.0 07/13/17 06:32 110 115/67 07/13/17 04:00 110 07/13/17 03:23 98.2 78 20 115/67 98 Nasal Cannula 2.0 98.2 07/13/17 00:00 110 07/13/17 00:00 98.1 117 20 131/91 96 Nasal Cannula 2.0 98.1 07/12/17 23:15 123 118/77 07/12/17 22:21 123 118/77 07/12/17 20:00 118 07/12/17 20:00 97.7 123 20 118/77 96 Nasal Cannula 2.0 97.7 07/12/17 19:28 97 22 Nasal Cannula 4.0 36 07/12/17 19:28 95 Nasal Cannula 4.0 36 07/12/17 19:28 Nasal Cannula 4.0 36 07/12/17 19:11 96.6 07/12/17 18:16 126 07/12/17 18:12 109 107/72 07/12/17 18:12 96.6 07/12/17 18:00 107/72 07/12/17 16:00 96.6 108 20 107/72 96 Nasal Cannula 2.0 96.6 07/12/17 16:00 109 Intake and Output 07/12/17 07/13/17 19:00 07:00 Intake Total 929 ml Balance 929 ml Intake Oral 760 ml IV Total 169 ml # Bowel Movements 1 Laboratory Tests 07/13/17 08:00: White Blood Count 5.8, Red Blood Count 2.90L, Hemoglobin 9.2L, Hematocrit 31.1L , Mean Corpuscular Volume 107H, Mean Corpuscular Hemoglobin 31.6H, Mean Corpuscular Hemoglobin Concent 29.4L, Red Cell Distribution Width 18.4H, Platelet Count 83L, Mean Platelet Volume 7.9, Neutrophils (%) (Auto) , Lymphocytes (%) (Auto) , Monocytes (%) (Auto) , Eosinophils (%) (Auto) , Basophils (%) (Auto) , Differential Total Cells Counted 100, Neutrophils % ( Manual) 45, Lymphocytes % (Manual) 17L, Monocytes % (Manual) 24H, Eosinophils % (Manual) 14H, Basophils % (Manual) 0, Band Neutrophils 0, Platelet Estimate Adequate, Platelet Morphology Normal, Hypochromasia 1+, Anisocytosis 1+, Macrocytosis 1+, Sodium Level 136, Potassium Level 5.1, Chloride Level 97L, Carbon Dioxide Level 28, Anion Gap 11, Blood Urea Nitrogen 72H, Creatinine 13.6H , Estimat Glomerular Filtration Rate 4.6, Glucose Level 122H, Calcium Level 8.6 , Total Bilirubin 1.3H, Direct Bilirubin 0.8H, Aspartate Amino Transf (AST/SGOT ) 41H, Alanine Aminotransferase (ALT/SGPT) 21, Alkaline Phosphatase 90, Total Protein 6.7, Albumin 2.2L, Globulin 4.5, Albumin/Globulin Ratio 0.5L Height (Feet): 5 Height (Inches): 7.00 Weight (Pounds): 233 General Appearance: no apparent distress Objective no change LIAM MONTELONGO Jul 13, 2017 12:25
--- NOTE | 2017-07-13 12:55 | Infectious Diseases Prog Note ---
Assessment/Plan Assessment/Plan Cavitary PNA. SCx: Neg ( m/l necrotizing Pneum, vs anaerobic abscess, doubt TB or fungal ) ; improving - 07/09 SP BAL Cx( Abby and MOJGAN : Colonizers ) -CT chest 06/25: Since the prior study of 06/15/2017, and. From further reduction in size of previously demonstrated thick walled right upper lobe cavitary mass. This was previously thought to most likely represent a cavitary inflammatory mass, and the interim reduction in size certainly supports that. Much less likely a cavitary neoplasm, but follow-up to resolution is recommended. Markedly improved parenchymal disease bilaterally, since the previous study. Nonetheless , extensive atelectasis and groundglass consolidation persists. Persistent small right pleural effusion, smaller than on the prior study. Resolved left pleural effusion 6 mm nodular opacity in the right upper lobe, not evident previously but likely obscured by surrounding consolidated lung parenchyma. This should be followed up in 6 months to one year depending on results of interim follow-up exams -CXR 06/21: Persistent but slightly decreased size of known right lung cavitary lesion. Persistent extensive interstitial and bilateral airspace opacities. -sp cx 06/05, 06/06 normal resp jordin; repeat sp cx 06/18 PsA (singh S) + Providencia stuarti (S Ceftriaxone, R Cipro) (likely superinfection/HCAP) Rsp status improved but on 06/[address] his condition worsen T-SPOT :Neg AFB x 3 : Neg MTB PCR x2 : neg cryptococcus Ag, Histoplams mycelial Ab , Blastomyces ab : neg ; histoplasma yeast ab (not able to be done due to anticomplementary activity) -Cocci, Asp ag p -Fungitell + 144 (?aspergillosis vs false positive) 06/21 Xray : improvement of cavity CT chest 06/15: Slightly smaller (6 cm diameter ) but mostly unchanged cavitary lesion in the right lung, previously thought to represent a cavitating inflammatory process. Lung abscess is certainly a possibility. Fairly extensive bilateral pulmonary parenchymal consolidation, slightly increased from previous exam of 06/05/2017. Likely a combination of pulmonary edema and pneumonia. Small right and trace left pleural effusion, new/increased from the previous study. CT 06/05: 7.8 x 5.3 x 6.6 cm dense opacity in the posterior inferior right upper lobe with a central cavitation. Chest x-ray : right mid lung infiltrate, possible cavitation Rule out tuberculosis, fungal infection, or necrotizing pneumonia. CRP 14 Influenza negative Coccidioidal ,Galactomannan : NEG ( PER LAB ) Transaminitis , improving after stopping rifampin 2/2 Hep C cirrhosis- no active Hep C as VL not detected -CT abd/p: Evidence of hepatic cirrhosis. Hepatosplenomegaly. evidence of generalized anasarca, with pleural fluid and generalized subcutaneous edema. Cholelithiasis, also previously reported. Possible diverticulosis. No evidence of diverticulitis US Abd : Cholelithiasis. There is gallbladder wall thickening, likely related to hemodynamic abnormalities Splenomegaly. Evidence of hepatic cirrhosis HIV : NEG Hep Panel B neg , C Ab : +ve , VL not detected leukopenia and TCP 2/2 splenomegaly Seizure disorder History of CVA History of pacemaker placement Hyperlipidemia Hypertension COPD/asthma End-stage renal disease, on hemodialysis Diabetes Anxiety Anemia Echo, ejection fraction 45% to 50%. PLAN: - cont Zoysn d# 6 ( pt SOB and CXR worsen , better coverage of anaerobes, PSA and Providencia ); abx d# 39 / 42, then will switch to oral Clinda till resolution of of abscess Continue empiric Ethambutol and Levaquin, Amikacin ( empiric TB AB Rx d# 29 as per TB control request, this was DW TB control , still insists to cont w TB regiment till final cultures are back ) 4/ SP Dc Flagyl 07/06 SP Voriconazole ( low antonio for fungal infection , and in the setting of cirrhosis ) 07/05 SP Micafungin abx d#20 , Rifampin 600mg qd #10 07/01 SP Ceftriaxone #10 06/28 SP Amikacin #15 / SP PO Voriconazole #3 06/20 SP Liposomal Ampho #8 3 SP IV Vancomycin #14, Meropenem #5 06/13 SP Zosyn d# 10 3/ SP Zithromax D# 6 f/u sputum culture (fungal, and AFB x3). - CMP Subjective Allergies: Coded Allergies: IODINE AND IODIDE CONTAINING PRODUC (Verified Allergy, Mild, itching and pruritis, 06/25/17) Uncoded Allergies: CONTRAST/DYE (Allergy, Intermediate, PRURITIS AND ITCHING, 06/25/17) Subjective afebrile Objective Vital Signs Last 24 Hour Vital Signs Date Time Temp Pulse Resp B/P (MAP) Pulse Ox O2 Delivery O2 Flow Rate FiO2 07/13/17 12:49 91 116/86 07/13/17 12:06 98.1 91 21 116/86 98 98.1 07/13/17 08:39 111 115/58 07/13/17 08:39 115/58 07/13/17 08:20 Nasal Cannula 4.0 36 07/13/17 08:20 97 Nasal Cannula 4.0 36 07/13/17 08:20 111 22 Nasal Cannula 4.0 36 07/13/17 08:00 95 07/13/17 07:59 99.0 65 20 115/58 98 Nasal Cannula 2.0 99.0 07/13/17 06:32 110 115/67 07/13/17 04:00 110 07/13/17 03:23 98.2 78 20 115/67 98 Nasal Cannula 2.0 98.2 07/13/17 00:00 110 07/13/17 00:00 98.1 117 20 131/91 96 Nasal Cannula 2.0 98.1 07/12/17 23:15 123 118/77 07/12/17 22:21 123 118/77 07/12/17 20:00 118 07/12/17 20:00 97.7 123 20 118/77 96 Nasal Cannula 2.0 97.7 07/12/17 19:28 97 22 Nasal Cannula 4.0 36 07/12/17 19:28 95 Nasal Cannula 4.0 36 07/12/17 19:28 Nasal Cannula 4.0 36 07/12/17 19:11 96.6 07/12/17 18:16 126 07/12/17 18:12 109 107/72 07/12/17 18:12 96.6 07/12/17 18:00 107/72 07/12/17 16:00 96.6 108 20 107/72 96 Nasal Cannula 2.0 96.6 07/12/17 16:00 109 Height (Feet): 5 Height (Inches): 7.00 Weight (Pounds): 233 HEENT: anicteric Respiratory/Chest: no respiratory distress Cardiovascular: regular rhythm Abdomen: soft, non tender Laboratory Tests Test 07/13/17 08:00 White Blood Count 5.8 K/UL (4.8-10.8) Red Blood Count 2.90 M/UL (4.70-6.10) L Hemoglobin 9.2 G/DL (14.2-18.0) L Hematocrit 31.1 % (42.0-52.0) L Mean Corpuscular Volume 107 FL (80-99) H Mean Corpuscular Hemoglobin 31.6 PG (27.0-31.0) H Mean Corpuscular Hemoglobin Concent 29.4 G/DL (32.0-36.0) L Red Cell Distribution Width 18.4 % (11.6-14.8) H Platelet Count 83 K/UL (150-450) L Mean Platelet Volume 7.9 FL (6.5-10.1) Neutrophils (%) (Auto) % (45.0-75.0) Lymphocytes (%) (Auto) % (20.0-45.0) Monocytes (%) (Auto) % (1.0-10.0) Eosinophils (%) (Auto) % (0.0-3.0) Basophils (%) (Auto) % (0.0-2.0) Differential Total Cells Counted 100 Neutrophils % (Manual) 45 % (45-75) Lymphocytes % (Manual) 17 % (20-45) L Monocytes % (Manual) 24 % (1-10) H Eosinophils % (Manual) 14 % (0-3) H Basophils % (Manual) 0 % (0-2) Band Neutrophils 0 % (0-8) Platelet Estimate Adequate Platelet Morphology Normal Hypochromasia 1+ Anisocytosis 1+ Macrocytosis 1+ Sodium Level 136 MMOL/L (136-145) Potassium Level 5.1 MMOL/L (3.5-5.1) Chloride Level 97 MMOL/L (98-107) L Carbon Dioxide Level 28 MMOL/L (21-32) Anion Gap 11 mmol/L (5-15) Blood Urea Nitrogen 72 mg/dL (7-18) H Creatinine 13.6 MG/DL (0.55-1.30) H Estimat Glomerular Filtration Rate 4.6 mL/min (>60) Glucose Level 122 MG/DL (74-106) H Calcium Level 8.6 MG/DL (8.5-10.1) Total Bilirubin 1.3 MG/DL (0.2-1.0) H Direct Bilirubin 0.8 MG/DL (0.0-0.3) H Aspartate Amino Transf (AST/SGOT) 41 U/L (15-37) H Alanine Aminotransferase (ALT/SGPT) 21 U/L (12-78) Alkaline Phosphatase 90 U/L (46-116) Total Protein 6.7 G/DL (6.4-8.2) Albumin 2.2 G/DL (3.4-5.0) L Globulin 4.5 g/dL Albumin/Globulin Ratio 0.5 (1.0-2.7) L Current Medications Medications (Trade) Dose Ordered Sig/Jose Route PRN Reason Start Time Stop Time Status Last Admin Dose Admin Alprazolam (Xanax) 2 mg DAILYPRN PRN ORAL For Anxiety 07/09/17 15:15 07/16/17 15:14 07/13/17 02:37 Amikacin Protocol (Amikacin pharmacy to dose) 1 ea DAILY PRN MISC Per rx protocol 07/06/17 09:00 08/03/17 15:14 Amikacin Sulfate 1000 mg/Dextrose 114 ml @ 228 mls/hr FRI-FRI-FRI IV 07/14/17 21:00 07/21/17 20:59 Apixaban (Eliquis) 2.5 mg BID ORAL 07/06/17 18:00 08/05/17 17:59 07/13/17 08:39 Carisoprodol (Soma) 350 mg Q6H PRN ORAL MUSCLE SPASMS 07/06/17 07:00 07/14/17 18:59 07/12/17 18:12 Chlorhexidine Gluconate (Mireille-Hex 2%) 1 applic DAILY@2000 TOPIC 07/06/17 20:00 08/02/17 19:59 07/12/17 22:21 Clonidine HCl (Catapres Tab) 0.1 mg Q4H PRN ORAL bp over 160 syst 07/06/17 07:30 07/19/17 11:29 Dextrose (Dextrose 50%) 25 ml STAT PRN IV HYPOGLYCEMIA 07/09/17 08:30 08/08/17 08:29 Dextrose (Dextrose 50%) 50 ml STAT PRN IV Hypoglycemia 07/09/17 08:30 07/14/17 18:59 Diltiazem HCl (Cardizem) 10 mg Q1H PRN IVP tachycardia 07/08/17 15:30 08/07/17 15:29 07/09/17 22:42 Diltiazem HCl (Cardizem) 30 mg EVERY 6 HOURS ORAL 07/10/17 19:30 08/09/17 19:29 07/13/17 12:49 Docusate Sodium (Colace) 100 mg THREE TIMES A DAY ORAL 07/06/17 09:00 07/18/17 13:00 07/13/17 08:39 Ethambutol HCl (Myambutol) 1,000 mg 3XW ORAL 07/07/17 09:00 07/18/17 23:59 07/11/17 09:54 Hydromorphone HCl (Dilaudid) 2 mg Q4H PRN IVP Severe Pain (Pain Scale 7-10) 07/09/17 12:45 07/16/17 12:44 07/13/17 08:41 Levofloxacin (Levaquin) 750 mg EVERY OTHER DAY@1999 ORAL 07/07/17 20:00 07/14/17 19:59 07/11/17 20:12 Lisinopril (Prinivil) 20 mg BID ORAL 07/06/17 09:00 07/19/17 18:00 07/13/17 08:39 Metoprolol Tartrate (Lopressor) 5 mg Q5MIN X 3 IVP 07/06/17 14:15 08/05/17 14:14 07/07/17 00:38 Metoprolol Tartrate (Lopressor) 100 mg Q12HR ORAL 07/11/17 21:00 08/10/17 20:59 07/13/17 08:39 Nitroglycerin (Ntg) 0.4 mg Q5M PRN SL Prn Chest Pain 07/06/17 04:00 07/19/17 11:29 Ondansetron HCl (Zofran) 4 mg Q6H PRN IVP Nausea & Vomiting 07/06/17 06:30 07/14/17 18:29 07/10/17 15:45 Pantoprazole (Protonix) 40 mg ACBREAKFAST ORAL 07/06/17 06:30 07/15/17 06:29 07/13/17 06:31 Piperacillin Sod/ Tazobactam Sod 2.25 gm/Dextrose 55 ml @ 110 mls/hr Q8HR IVPB 07/08/17 14:00 07/13/17 13:59 07/13/17 06:31 Polyethylene Glycol (Miralax) 17 gm DAILYPRN PRN ORAL Constipation 07/06/17 18:30 07/14/17 18:29 Promethazine HCl/ Codeine (Phenergan with Codeine) 5 ml Q4H PRN ORAL For Cough 07/06/17 06:30 07/22/17 10:30 07/08/17 01:56 Sevelamer Carbonate (Renvela) 2,400 mg THREE TIMES A DAY ORAL 07/06/17 09:00 07/16/17 18:44 07/13/17 12:49 Cristofer Antunez MD Jul 13, 2017 12:55
--- NOTE | 2017-07-13 13:16 | General Progress Note ---
Assessment/Plan Assessment/Plan Assessment - gallstones - abnormal LFT - suspect due to cirrhosis +/- meds - Periodic N/V with abnormal GB ultrasound, ? possibly biliary colic - patient declined HIDA - Anemia, multifactorial - OB (+) Stool - patient declined EGD/Colon - ESRD/HD - DM - HTN - COPD - Cavitary lung disease - Thrombocytopenia - cirrhotic appearing liver on CT - Hepatitis C Ab (+)/ PCR (-) - Poor prognosis Recommendations - PO as tolerated - follow symptoms and exam - monitor LFT - avoid hepatotoxic meds - abx per ID - transfuse PRN - Acid blockade Subjective Allergies: Coded Allergies: IODINE AND IODIDE CONTAINING PRODUC (Verified Allergy, Mild, itching and pruritis, 06/25/17) Uncoded Allergies: CONTRAST/DYE (Allergy, Intermediate, PRURITIS AND ITCHING, 06/25/17) Subjective above noted tolerating PO no vomiting sleepy Objective Last 24 Hour Vital Signs Date Time Temp Pulse Resp B/P (MAP) Pulse Ox O2 Delivery O2 Flow Rate FiO2 07/13/17 12:49 91 116/86 07/13/17 12:06 98.1 91 21 116/86 98 98.1 07/13/17 08:39 111 115/58 07/13/17 08:39 115/58 07/13/17 08:20 Nasal Cannula 4.0 36 07/13/17 08:20 97 Nasal Cannula 4.0 36 07/13/17 08:20 111 22 Nasal Cannula 4.0 36 07/13/17 08:00 95 07/13/17 07:59 99.0 65 20 115/58 98 Nasal Cannula 2.0 99.0 07/13/17 06:32 110 115/67 07/13/17 04:00 110 07/13/17 03:23 98.2 78 20 115/67 98 Nasal Cannula 2.0 98.2 07/13/17 00:00 110 07/13/17 00:00 98.1 117 20 131/91 96 Nasal Cannula 2.0 98.1 07/12/17 23:15 123 118/77 07/12/17 22:21 123 118/77 07/12/17 20:00 118 07/12/17 20:00 97.7 123 20 118/77 96 Nasal Cannula 2.0 97.7 07/12/17 19:28 97 22 Nasal Cannula 4.0 36 07/12/17 19:28 95 Nasal Cannula 4.0 36 07/12/17 19:28 Nasal Cannula 4.0 36 07/12/17 19:11 96.6 07/12/17 18:16 126 07/12/17 18:12 109 107/72 07/12/17 18:12 96.6 07/12/17 18:00 107/72 07/12/17 16:00 96.6 108 20 107/72 96 Nasal Cannula 2.0 96.6 07/12/17 16:00 109 Intake and Output 07/12/17 07/13/17 19:00 07:00 Intake Total 929 ml Balance 929 ml Intake Oral 760 ml IV Total 169 ml # Bowel Movements 1 Laboratory Tests 07/13/17 08:00: White Blood Count 5.8, Red Blood Count 2.90L, Hemoglobin 9.2L, Hematocrit 31.1L , Mean Corpuscular Volume 107H, Mean Corpuscular Hemoglobin 31.6H, Mean Corpuscular Hemoglobin Concent 29.4L, Red Cell Distribution Width 18.4H, Platelet Count 83L, Mean Platelet Volume 7.9, Neutrophils (%) (Auto) , Lymphocytes (%) (Auto) , Monocytes (%) (Auto) , Eosinophils (%) (Auto) , Basophils (%) (Auto) , Differential Total Cells Counted 100, Neutrophils % ( Manual) 45, Lymphocytes % (Manual) 17L, Monocytes % (Manual) 24H, Eosinophils % (Manual) 14H, Basophils % (Manual) 0, Band Neutrophils 0, Platelet Estimate Adequate, Platelet Morphology Normal, Hypochromasia 1+, Anisocytosis 1+, Macrocytosis 1+, Sodium Level 136, Potassium Level 5.1, Chloride Level 97L, Carbon Dioxide Level 28, Anion Gap 11, Blood Urea Nitrogen 72H, Creatinine 13.6H , Estimat Glomerular Filtration Rate 4.6, Glucose Level 122H, Calcium Level 8.6 , Total Bilirubin 1.3H, Direct Bilirubin 0.8H, Aspartate Amino Transf (AST/SGOT ) 41H, Alanine Aminotransferase (ALT/SGPT) 21, Alkaline Phosphatase 90, Total Protein 6.7, Albumin 2.2L, Globulin 4.5, Albumin/Globulin Ratio 0.5L Height (Feet): 5 Height (Inches): 7.00 Weight (Pounds): 233 Objective WDWN AA Man NCAT supple CTA RRR Soft mildly distended, (+) improved RUQ TTP, (+) trunk edema (+) leg edema PERCY JOYNER Jul 13, 2017 13:16
--- NOTE | 2017-07-13 15:24 | Internal Med Progress Note ---
Subjective Date of Service: Jul 13, 2017 Physician Name Zoey Pires Attending Physician Chaitanya Weinstein MD Current Medications Medications (Trade) Dose Ordered Sig/Jose Route PRN Reason Start Time Stop Time Status Last Admin Dose Admin Alprazolam (Xanax) 2 mg DAILYPRN PRN ORAL For Anxiety 07/09/17 15:15 07/16/17 15:14 07/13/17 02:37 Amikacin Protocol (Amikacin pharmacy to dose) 1 ea DAILY PRN MISC Per rx protocol 07/06/17 09:00 08/03/17 15:14 Amikacin Sulfate 1000 mg/Dextrose 114 ml @ 228 mls/hr FRI-FRI-FRI IV 07/14/17 21:00 07/21/17 20:59 Apixaban (Eliquis) 2.5 mg BID ORAL 07/06/17 18:00 08/05/17 17:59 07/13/17 08:39 Carisoprodol (Soma) 350 mg Q6H PRN ORAL MUSCLE SPASMS 07/06/17 07:00 07/14/17 18:59 07/12/17 18:12 Chlorhexidine Gluconate (Mireille-Hex 2%) 1 applic DAILY@2000 TOPIC 07/06/17 20:00 08/02/17 19:59 07/12/17 22:21 Clonidine HCl (Catapres Tab) 0.1 mg Q4H PRN ORAL bp over 160 syst 07/06/17 07:30 07/19/17 11:29 Dextrose (Dextrose 50%) 25 ml STAT PRN IV HYPOGLYCEMIA 07/09/17 08:30 08/08/17 08:29 Dextrose (Dextrose 50%) 50 ml STAT PRN IV Hypoglycemia 07/09/17 08:30 07/14/17 18:59 Diltiazem HCl (Cardizem) 10 mg Q1H PRN IVP tachycardia 07/08/17 15:30 08/07/17 15:29 07/09/17 22:42 Diltiazem HCl (Cardizem) 30 mg EVERY 6 HOURS ORAL 07/10/17 19:30 08/09/17 19:29 07/13/17 12:49 Docusate Sodium (Colace) 100 mg THREE TIMES A DAY ORAL 07/06/17 09:00 07/18/17 13:00 07/13/17 08:39 Ethambutol HCl (Myambutol) 1,000 mg 3XW ORAL 07/07/17 09:00 07/18/17 23:59 07/11/17 09:54 Hydromorphone HCl (Dilaudid) 2 mg Q4H PRN IVP Severe Pain (Pain Scale 7-10) 07/09/17 12:45 07/16/17 12:44 07/13/17 13:48 Levofloxacin (Levaquin) 750 mg EVERY OTHER DAY@2000 ORAL 07/07/17 20:00 07/14/17 19:59 07/11/17 20:12 Lisinopril (Prinivil) 20 mg BID ORAL 07/06/17 09:00 07/19/17 18:00 07/13/17 08:39 Metoprolol Tartrate (Lopressor) 5 mg Q5MIN X 3 IVP 07/06/17 14:15 08/05/17 14:14 07/07/17 00:38 Metoprolol Tartrate (Lopressor) 100 mg Q12HR ORAL 07/11/17 21:00 08/10/17 20:59 07/13/17 08:39 Nitroglycerin (Ntg) 0.4 mg Q5M PRN SL Prn Chest Pain 07/06/17 04:00 07/19/17 11:29 Ondansetron HCl (Zofran) 4 mg Q6H PRN IVP Nausea & Vomiting 07/06/17 06:30 07/14/17 18:29 07/10/17 15:45 Pantoprazole (Protonix) 40 mg ACBREAKFAST ORAL 07/06/17 06:30 07/15/17 06:29 07/13/17 06:31 Polyethylene Glycol (Miralax) 17 gm DAILYPRN PRN ORAL Constipation 07/06/17 18:30 07/14/17 18:29 Promethazine HCl/ Codeine (Phenergan with Codeine) 5 ml Q4H PRN ORAL For Cough 07/06/17 06:30 07/22/17 10:30 07/08/17 01:56 Sevelamer Carbonate (Renvela) 2,400 mg THREE TIMES A DAY ORAL 07/06/17 09:00 07/16/17 18:44 07/13/17 12:49 Allergies: Coded Allergies: IODINE AND IODIDE CONTAINING PRODUC (Verified Allergy, Mild, itching and pruritis, 06/25/17) Uncoded Allergies: CONTRAST/DYE (Allergy, Intermediate, PRURITIS AND ITCHING, 06/25/17) ROS Limited/Unobtainable: No Constitutional: Reports: no symptoms HEENT: Reports: no symptoms Cardiovascular: Reports: no symptoms Respiratory: Reports: no symptoms Gastrointestinal/Abdominal: Reports: no symptoms Genitourinary: Reports: no symptoms Neurologic/Psychiatric: Reports: no symptoms Subjective 57 YO M admitted with chest pain and shortness of breath. Now pneumonia and candelaria heart failure. Back on nasal canula. Cover for Int Misbah-Dr Weinstein. Now atrial flutter improving ventricular rate. Objective Last Vital Signs Date Time Temp Pulse Resp B/P (MAP) Pulse Ox O2 Delivery O2 Flow Rate FiO2 07/13/17 12:49 91 116/86 07/13/17 12:06 98.1 21 98 98.1 07/13/17 08:20 Nasal Cannula 4.0 36 Laboratory Tests Test 07/13/17 08:00 White Blood Count 5.8 K/UL (4.8-10.8) Red Blood Count 2.90 M/UL (4.70-6.10) L Hemoglobin 9.2 G/DL (14.2-18.0) L Hematocrit 31.1 % (42.0-52.0) L Mean Corpuscular Volume 107 FL (80-99) H Mean Corpuscular Hemoglobin 31.6 PG (27.0-31.0) H Mean Corpuscular Hemoglobin Concent 29.4 G/DL (32.0-36.0) L Red Cell Distribution Width 18.4 % (11.6-14.8) H Platelet Count 83 K/UL (150-450) L Mean Platelet Volume 7.9 FL (6.5-10.1) Neutrophils (%) (Auto) % (45.0-75.0) Lymphocytes (%) (Auto) % (20.0-45.0) Monocytes (%) (Auto) % (1.0-10.0) Eosinophils (%) (Auto) % (0.0-3.0) Basophils (%) (Auto) % (0.0-2.0) Differential Total Cells Counted 100 Neutrophils % (Manual) 45 % (45-75) Lymphocytes % (Manual) 17 % (20-45) L Monocytes % (Manual) 24 % (1-10) H Eosinophils % (Manual) 14 % (0-3) H Basophils % (Manual) 0 % (0-2) Band Neutrophils 0 % (0-8) Platelet Estimate Adequate Platelet Morphology Normal Hypochromasia 1+ Anisocytosis 1+ Macrocytosis 1+ Sodium Level 136 MMOL/L (136-145) Potassium Level 5.1 MMOL/L (3.5-5.1) Chloride Level 97 MMOL/L (98-107) L Carbon Dioxide Level 28 MMOL/L (21-32) Anion Gap 11 mmol/L (5-15) Blood Urea Nitrogen 72 mg/dL (7-18) H Creatinine 13.6 MG/DL (0.55-1.30) H Estimat Glomerular Filtration Rate 4.6 mL/min (>60) Glucose Level 122 MG/DL (74-106) H Calcium Level 8.6 MG/DL (8.5-10.1) Total Bilirubin 1.3 MG/DL (0.2-1.0) H Direct Bilirubin 0.8 MG/DL (0.0-0.3) H Aspartate Amino Transf (AST/SGOT) 41 U/L (15-37) H Alanine Aminotransferase (ALT/SGPT) 21 U/L (12-78) Alkaline Phosphatase 90 U/L (46-116) Total Protein 6.7 G/DL (6.4-8.2) Albumin 2.2 G/DL (3.4-5.0) L Globulin 4.5 g/dL Albumin/Globulin Ratio 0.5 (1.0-2.7) L Intake and Output 07/12/17 07/13/17 19:00 07:00 Intake Total 929 ml Balance 929 ml Intake Oral 760 ml IV Total 169 ml # Bowel Movements 1 Objective General Appearance: WD/WN, alert, moderate distress EENT: PERRL/EOMI, normal ENT inspection Neck: non-tender, normal alignment, supple, normal inspection Cardiovascular: Tachycardia; normal peripheral pulses, normal rate, regular rhythm, no gallop/murmur, no JVD Respiratory/Chest: Nasal canula; respiratory distress, crackles/rales, rhonchi - bilaterally, expiratory wheezing Abdomen: normal bowel sounds, non tender, soft, no organomegaly, no mass Extremities: normal range of motion 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 (2) Respiratory failure Assessment & Plan: CHF and Pneumonia. Currently on nasal canula. See pulmonay note. (3) Pleuritic chest pain (4) Hemoptysis Assessment & Plan: Due to pneumonia (5) Pneumonia Assessment & Plan: Providencia and pseudamonas. RUL and cavitary. Concerning for TB. Await AFB cultures-see ID consult. Continue vanco and ethambutol per ID. Continue rocephin, micafungin, flagyl, amikacin, levaquin, and rifampin (6) Shortness of breath (7) ESRD (end stage renal disease) on dialysis Assessment & Plan: See nephrology note. Next Hemodialysis 07/14/17 per nephrology (8) Hyperkalemia Assessment & Plan: Due to renal failure. Hemodialysis 06/12/17 per nephrology (9) COPD (chronic obstructive pulmonary disease) (10) HTN (hypertension) Assessment & Plan: Continue coreg and lisinopril. (11) CHF (congestive heart failure) (12) Elevated troponin Assessment & Plan: ?due to renal failure? See cardiology note. (13) Intractable abdominal pain Assessment & Plan: See surgery note. Await CT abdomen (14) Conjunctivitis Assessment & Plan: start tobramycin (15) Diarrhea Assessment & Plan: Send stool for C. Diff Assessment/Plan Discharge planning - coordination with [facility] pending ZOEY PIRES Jul 13, 2017 15:24
[2017-07-13] MEDS: Dyna-Hex 2% Top Sol 2oz TOPIC SCH (20:47)
--- NOTE | 2017-07-13 20:50 | Cardiology Progress Note ---
Assessment/Plan Assessment/Plan after digoxin, there was very minor improvement in his heart rate Subjective Subjective the patient feels much better, less dyspnea, and less palpitations Objective Last 24 Hour Vital Signs Date Time Temp Pulse Resp B/P (MAP) Pulse Ox O2 Delivery O2 Flow Rate FiO2 07/13/17 20:48 115 135/62 07/13/17 20:31 Nasal Cannula 4.0 36 07/13/17 20:31 95 Nasal Cannula 4.0 36 07/13/17 20:31 104 22 Nasal Cannula 4.0 36 07/13/17 20:01 98.2 116 20 125/88 95 Nasal Cannula 4.0 98.2 07/13/17 17:45 109 124/84 07/13/17 17:30 124/84 07/13/17 16:12 98.2 109 21 124/84 97 98.2 07/13/17 16:00 119 07/13/17 12:49 91 116/86 07/13/17 12:06 98.1 91 21 116/86 98 98.1 07/13/17 12:00 102 07/13/17 08:39 111 115/58 07/13/17 08:39 115/58 07/13/17 08:20 Nasal Cannula 4.0 36 07/13/17 08:20 97 Nasal Cannula 4.0 36 07/13/17 08:20 111 22 Nasal Cannula 4.0 36 07/13/17 08:00 95 07/13/17 07:59 99.0 65 20 115/58 98 Nasal Cannula 2.0 99.0 07/13/17 06:32 110 115/67 07/13/17 04:00 110 07/13/17 03:23 98.2 78 20 115/67 98 Nasal Cannula 2.0 98.2 07/13/17 00:00 110 07/13/17 00:00 98.1 117 20 131/91 96 Nasal Cannula 2.0 98.1 07/12/17 23:15 123 118/77 07/12/17 22:21 123 118/77 General Appearance: moderate distress, other - ill appearing EENT: PERRL/EOMI Neck: other - catheter right IJ Rhythm: Afib Cardiovascular: tachycardia Respiratory/Chest: crackles/rales Abdomen: soft Extremities: severe edema Intake and Output 07/12/17 07/13/17 19:00 07:00 Intake Total 929 ml Balance 929 ml Intake Oral 760 ml IV Total 169 ml # Bowel Movements 1 Laboratory Tests Test 07/13/17 08:00 White Blood Count 5.8 K/UL (4.8-10.8) Red Blood Count 2.90 M/UL (4.70-6.10) L Hemoglobin 9.2 G/DL (14.2-18.0) L Hematocrit 31.1 % (42.0-52.0) L Mean Corpuscular Volume 107 FL (80-99) H Mean Corpuscular Hemoglobin 31.6 PG (27.0-31.0) H Mean Corpuscular Hemoglobin Concent 29.4 G/DL (32.0-36.0) L Red Cell Distribution Width 18.4 % (11.6-14.8) H Platelet Count 83 K/UL (150-450) L Mean Platelet Volume 7.9 FL (6.5-10.1) Neutrophils (%) (Auto) % (45.0-75.0) Lymphocytes (%) (Auto) % (20.0-45.0) Monocytes (%) (Auto) % (1.0-10.0) Eosinophils (%) (Auto) % (0.0-3.0) Basophils (%) (Auto) % (0.0-2.0) Differential Total Cells Counted 100 Neutrophils % (Manual) 45 % (45-75) Lymphocytes % (Manual) 17 % (20-45) L Monocytes % (Manual) 24 % (1-10) H Eosinophils % (Manual) 14 % (0-3) H Basophils % (Manual) 0 % (0-2) Band Neutrophils 0 % (0-8) Platelet Estimate Adequate Platelet Morphology Normal Hypochromasia 1+ Anisocytosis 1+ Macrocytosis 1+ Sodium Level 136 MMOL/L (136-145) Potassium Level 5.1 MMOL/L (3.5-5.1) Chloride Level 97 MMOL/L (98-107) L Carbon Dioxide Level 28 MMOL/L (21-32) Anion Gap 11 mmol/L (5-15) Blood Urea Nitrogen 72 mg/dL (7-18) H Creatinine 13.6 MG/DL (0.55-1.30) H Estimat Glomerular Filtration Rate 4.6 mL/min (>60) Glucose Level 122 MG/DL (74-106) H Calcium Level 8.6 MG/DL (8.5-10.1) Total Bilirubin 1.3 MG/DL (0.2-1.0) H Direct Bilirubin 0.8 MG/DL (0.0-0.3) H Aspartate Amino Transf (AST/SGOT) 41 U/L (15-37) H Alanine Aminotransferase (ALT/SGPT) 21 U/L (12-78) Alkaline Phosphatase 90 U/L (46-116) Total Protein 6.7 G/DL (6.4-8.2) Albumin 2.2 G/DL (3.4-5.0) L Globulin 4.5 g/dL Albumin/Globulin Ratio 0.5 (1.0-2.7) L Shana Barclay MD Jul 13, 2017 20:50
--- NOTE | 2017-07-13 23:27 | General Progress Note ---
Assessment/Plan Assessment/Plan #. Anemia secondary to chronic disease. --> Hemoglobin levels have been stable. No blood transfusion required at this time. --> S/P abd CAT scan revealing evidence of hepatic cirrhosis. --> Continue to closely monitor and trend cbc daily. --> Anemia workup completed and reviewed. Iron 42, TIBC 180, Ferritin 593, B12 876. --> Ferritin is >500, hgb goal is >7 --> Anemia w/u has been reviewed --> ++Occult blood. Consider GI Services and Recs. #. Thrombocytopenia. --> Hepatitis C ab ++, PCR - --> Monitor platelet level. Transfuse if platelet count <20k --> Levels improving. Continue to trend daily. #. Left leg dvt --> acute onset, will need to review final duplex results --> begin on apixaban daily x 3 months, low h/h will need to monitor closely --> okay to change to different anticoagulant if renal clearance an issue --> If h/h downtrends below 7.5, consider ivc filter placement. --> Hemoglobin currently >7.5 # Hepatosplenomegaly. Ascites. There is also evidence of generalized anasarca, with pleural fluid and generalized subcutaneous edema --> Abd pain improved on pain management --> Refer to surgery note. #. Anemia of kidney disease --> HD as needed per nephrology team --> Monitor closely. --> Does not require iron at this time #. Generalized body ache related to fluid overload. #. End-stage renal disease, on hemodialysis as needed --> On hemodialysis #. Respiratory failure due to CHD and pneumonia. --> Providencia and pseudomonas. --> On vancomycin and ethambutol per ID. --> Chest pain, on pain management. #. Poor prognosis. #. Shortness of breath. Subjective Date patient seen: Jul 12, 2017 Constitutional: Denies: no symptoms, chills, diaphoresis, fever, malaise, weakness, other HEENT: Denies: no symptoms, eye pain, blurred vision, tearing, double vision, ear pain, ear discharge, nose pain, nose congestion, throat pain, throat swelling, mouth pain, mouth swelling, other Cardiovascular: Denies: no symptoms, chest pain, edema, irregular heart rate, lightheadedness, palpitations, syncope, other Respiratory: Denies: no symptoms, cough, orthopnea, shortness of breath, SOB with excertion, SOB at rest, sputum, stridor, wheezing, other Gastrointestinal/Abdominal: Denies: no symptoms, abdomen distended, abdominal pain, black stools, tarry stools, blood in stool, constipated, diarrhea, difficulty swallowing, nausea, poor appetite, poor fluid intake, rectal bleeding , vomiting, other Genitourinary: Denies: no symptoms, burning, discharge, frequency, flank pain, hematuria, incontinence, pain, urgency, other Neurologic/Psychiatric: Denies: no symptoms, anxiety, depressed, emotional problems, headache, numbness, paresthesia, pre-existing deficit, seizure, tingling, tremors, weakness, other Hematologic/Lymphatic: Reports: anemia Allergies: Coded Allergies: IODINE AND IODIDE CONTAINING PRODUC (Verified Allergy, Mild, itching and pruritis, 06/25/17) Uncoded Allergies: CONTRAST/DYE (Allergy, Intermediate, PRURITIS AND ITCHING, 06/25/17) Subjective On pain control for abd and chest pain. Some sob. Objective Last 24 Hour Vital Signs Date Time Temp Pulse Resp B/P (MAP) Pulse Ox O2 Delivery O2 Flow Rate FiO2 07/13/17 20:48 115 135/62 07/13/17 20:31 Nasal Cannula 4.0 36 07/13/17 20:31 95 Nasal Cannula 4.0 36 07/13/17 20:31 104 22 Nasal Cannula 4.0 36 07/13/17 20:01 98.2 116 20 125/88 95 Nasal Cannula 4.0 98.2 07/13/17 20:00 111 07/13/17 17:45 109 124/84 07/13/17 17:30 124/84 07/13/17 16:12 98.2 109 21 124/84 97 98.2 07/13/17 16:00 119 07/13/17 12:49 91 116/86 07/13/17 12:06 98.1 91 21 116/86 98 98.1 07/13/17 12:00 102 07/13/17 08:39 111 115/58 07/13/17 08:39 115/58 07/13/17 08:20 Nasal Cannula 4.0 36 07/13/17 08:20 97 Nasal Cannula 4.0 36 07/13/17 08:20 111 22 Nasal Cannula 4.0 36 07/13/17 08:00 95 07/13/17 07:59 99.0 65 20 115/58 98 Nasal Cannula 2.0 99.0 07/13/17 06:32 110 115/67 07/13/17 04:00 110 07/13/17 03:23 98.2 78 20 115/67 98 Nasal Cannula 2.0 98.2 07/13/17 00:00 110 07/13/17 00:00 98.1 117 20 131/91 96 Nasal Cannula 2.0 98.1 Intake and Output 07/12/17 07/13/17 19:00 07:00 Intake Total 929 ml Balance 929 ml Intake Oral 760 ml IV Total 169 ml # Bowel Movements 1 Laboratory Tests 07/13/17 08:00: White Blood Count 5.8, Red Blood Count 2.90L, Hemoglobin 9.2L, Hematocrit 31.1L , Mean Corpuscular Volume 107H, Mean Corpuscular Hemoglobin 31.6H, Mean Corpuscular Hemoglobin Concent 29.4L, Red Cell Distribution Width 18.4H, Platelet Count 83L, Mean Platelet Volume 7.9, Neutrophils (%) (Auto) , Lymphocytes (%) (Auto) , Monocytes (%) (Auto) , Eosinophils (%) (Auto) , Basophils (%) (Auto) , Differential Total Cells Counted 100, Neutrophils % ( Manual) 45, Lymphocytes % (Manual) 17L, Monocytes % (Manual) 24H, Eosinophils % (Manual) 14H, Basophils % (Manual) 0, Band Neutrophils 0, Platelet Estimate Adequate, Platelet Morphology Normal, Hypochromasia 1+, Anisocytosis 1+, Macrocytosis 1+, Sodium Level 136, Potassium Level 5.1, Chloride Level 97L, Carbon Dioxide Level 28, Anion Gap 11, Blood Urea Nitrogen 72H, Creatinine 13.6H , Estimat Glomerular Filtration Rate 4.6, Glucose Level 122H, Calcium Level 8.6 , Total Bilirubin 1.3H, Direct Bilirubin 0.8H, Aspartate Amino Transf (AST/SGOT ) 41H, Alanine Aminotransferase (ALT/SGPT) 21, Alkaline Phosphatase 90, Total Protein 6.7, Albumin 2.2L, Globulin 4.5, Albumin/Globulin Ratio 0.5L Height (Feet): 5 Height (Inches): 7.00 Weight (Pounds): 233 General Appearance: confused Respiratory/Chest: decreased breath sounds Edema: trace edema Irving Parker MD Jul 13, 2017 23:27
[2017-07-14] VITALS (7 sets, daily range): BP systolic 118–132; BP diastolic 57–93
[2017-07-14] MEDS: dilTIAZem HCl 30mg tab ORAL SCH ×5 (00:20→23:36)
[2017-07-14] MEDS: ALPRAZolam 0.5mg tab ORAL PRN (00:28)
--- NOTE | 2017-07-14 01:58 | General Progress Note ---
Assessment/Plan Assessment/Plan #. Anemia secondary to chronic disease. --> Hemoglobin levels have been stable. No blood transfusion required at this time. --> S/P abd CAT scan revealing evidence of hepatic cirrhosis. --> Continue to closely monitor and trend cbc daily. --> Anemia workup completed and reviewed. Iron 42, TIBC 180, Ferritin 593, B12 876. --> Ferritin is >500, hgb goal is >7 --> Anemia w/u has been reviewed --> ++Occult blood. Consider GI Services and Recs. #. Thrombocytopenia. --> Hepatitis C ab ++, PCR - --> Monitor platelet level. Transfuse if platelet count <20k --> Levels improving. Continue to trend daily. #. Left leg dvt --> acute onset, will need to review final duplex results --> begin on apixaban daily x 3 months, low h/h will need to monitor closely --> okay to change to different anticoagulant if renal clearance an issue --> If h/h downtrends below 7.5, consider ivc filter placement. --> Hemoglobin currently >7.5 # Hepatosplenomegaly. Ascites. There is also evidence of generalized anasarca, with pleural fluid and generalized subcutaneous edema --> Abd pain improved on pain management --> Refer to surgery note. #. Anemia of kidney disease --> HD as needed per nephrology team --> Monitor closely. --> Does not require iron at this time #. Generalized body ache related to fluid overload. #. End-stage renal disease, on hemodialysis as needed --> On hemodialysis #. Respiratory failure due to CHD and pneumonia. --> Providencia and pseudomonas. --> On vancomycin and ethambutol per ID. --> Chest pain, on pain management. #. Poor prognosis. #. Shortness of breath. Subjective Date patient seen: Jul 13, 2017 Constitutional: Denies: no symptoms, chills, diaphoresis, fever, malaise, weakness, other HEENT: Denies: no symptoms, eye pain, blurred vision, tearing, double vision, ear pain, ear discharge, nose pain, nose congestion, throat pain, throat swelling, mouth pain, mouth swelling, other Cardiovascular: Denies: no symptoms, chest pain, edema, irregular heart rate, lightheadedness, palpitations, syncope, other Respiratory: Denies: no symptoms, cough, orthopnea, shortness of breath, SOB with excertion, SOB at rest, sputum, stridor, wheezing, other Gastrointestinal/Abdominal: Denies: no symptoms, abdomen distended, abdominal pain, black stools, tarry stools, blood in stool, constipated, diarrhea, difficulty swallowing, nausea, poor appetite, poor fluid intake, rectal bleeding , vomiting, other Genitourinary: Denies: no symptoms, burning, discharge, frequency, flank pain, hematuria, incontinence, pain, urgency, other Neurologic/Psychiatric: Denies: no symptoms, anxiety, depressed, emotional problems, headache, numbness, paresthesia, pre-existing deficit, seizure, tingling, tremors, weakness, other Hematologic/Lymphatic: Reports: anemia Allergies: Coded Allergies: IODINE AND IODIDE CONTAINING PRODUC (Verified Allergy, Mild, itching and pruritis, 06/25/17) Uncoded Allergies: CONTRAST/DYE (Allergy, Intermediate, PRURITIS AND ITCHING, 06/25/17) Subjective Pending HD. Some sob. Resting in bed. Objective Last 24 Hour Vital Signs Date Time Temp Pulse Resp B/P (MAP) Pulse Ox O2 Delivery O2 Flow Rate FiO2 07/14/17 00:20 123 131/89 07/13/17 23:41 99.5 123 20 131/89 94 Nasal Cannula 4.0 99.5 07/13/17 20:48 115 135/62 07/13/17 20:31 Nasal Cannula 4.0 36 07/13/17 20:31 95 Nasal Cannula 4.0 36 07/13/17 20:31 104 22 Nasal Cannula 4.0 36 07/13/17 20:01 98.2 116 20 125/88 95 Nasal Cannula 4.0 98.2 07/13/17 20:00 111 07/13/17 17:45 109 124/84 07/13/17 17:30 124/84 07/13/17 16:12 98.2 109 21 124/84 97 98.2 07/13/17 16:00 119 07/13/17 12:49 91 116/86 07/13/17 12:06 98.1 91 21 116/86 98 98.1 07/13/17 12:00 102 07/13/17 08:39 111 115/58 07/13/17 08:39 115/58 07/13/17 08:20 Nasal Cannula 4.0 36 07/13/17 08:20 97 Nasal Cannula 4.0 36 07/13/17 08:20 111 22 Nasal Cannula 4.0 36 07/13/17 08:00 95 07/13/17 07:59 99.0 65 20 115/58 98 Nasal Cannula 2.0 99.0 07/13/17 06:32 110 115/67 07/13/17 04:00 110 07/13/17 03:23 98.2 78 20 115/67 98 Nasal Cannula 2.0 98.2 Intake and Output 07/13/17 07/14/17 19:00 07:00 Intake Total 420 ml Balance 420 ml Intake Oral 420 ml # Voids 2 # Bowel Movements 2 Laboratory Tests 07/13/17 08:00: White Blood Count 5.8, Red Blood Count 2.90L, Hemoglobin 9.2L, Hematocrit 31.1L , Mean Corpuscular Volume 107H, Mean Corpuscular Hemoglobin 31.6H, Mean Corpuscular Hemoglobin Concent 29.4L, Red Cell Distribution Width 18.4H, Platelet Count 83L, Mean Platelet Volume 7.9, Neutrophils (%) (Auto) , Lymphocytes (%) (Auto) , Monocytes (%) (Auto) , Eosinophils (%) (Auto) , Basophils (%) (Auto) , Differential Total Cells Counted 100, Neutrophils % ( Manual) 45, Lymphocytes % (Manual) 17L, Monocytes % (Manual) 24H, Eosinophils % (Manual) 14H, Basophils % (Manual) 0, Band Neutrophils 0, Platelet Estimate Adequate, Platelet Morphology Normal, Hypochromasia 1+, Anisocytosis 1+, Macrocytosis 1+, Sodium Level 136, Potassium Level 5.1, Chloride Level 97L, Carbon Dioxide Level 28, Anion Gap 11, Blood Urea Nitrogen 72H, Creatinine 13.6H , Estimat Glomerular Filtration Rate 4.6, Glucose Level 122H, Calcium Level 8.6 , Total Bilirubin 1.3H, Direct Bilirubin 0.8H, Aspartate Amino Transf (AST/SGOT ) 41H, Alanine Aminotransferase (ALT/SGPT) 21, Alkaline Phosphatase 90, Total Protein 6.7, Albumin 2.2L, Globulin 4.5, Albumin/Globulin Ratio 0.5L Height (Feet): 5 Height (Inches): 7.00 Weight (Pounds): 233 General Appearance: confused Respiratory/Chest: decreased breath sounds Irving Parker MD Jul 14, 2017 01:58
[2017-07-14 07:43] LABS: HEMATOCRIT 31.6 % (42.0-52.0); HEMOGLOBIN 9.4 G/DL (14.2-18.0); MEAN CORPUSCULAR VOLUME 106 FL (80-99); PLATELET COUNT 83 K/UL (150-450); RED BLOOD COUNT 2.99 M/UL (4.70-6.10); RED CELL DISTRIBUTION WIDTH 17.8 % (11.6-14.8); WHITE BLOOD COUNT 5.9 K/UL (4.8-10.8)
[2017-07-14 08:00] LABS: ANION GAP 11 mmol/L (5-15); BLOOD UREA NITROGEN 81 mg/dL (7-18); CALCIUM 8.5 MG/DL (8.5-10.1); CARBON DIOXIDE 27 MMOL/L (21-32); CHLORIDE 98 MMOL/L (98-107); CREATININE 14.1 MG/DL (0.55-1.30); POTASSIUM 5.8 MMOL/L (3.5-5.1); SODIUM 136 MMOL/L (136-145)
[2017-07-14] MEDS: Docusate 100mg cap ORAL SCH ×3 (09:50→18:00)
[2017-07-14] MEDS: Eliquis 2.5mg tablet ORAL SCH ×2 (09:51→18:00)
[2017-07-14] MEDS: Lisinopril 20mg tab ORAL SCH ×2 (09:52→18:00)
--- NOTE | 2017-07-14 12:10 | Pulmonology Progress Note ---
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 on anti TB meds wtih IV Amikacin, ethambutol cxr in am BAL showing vre and Abby Subjective ROS Limited/Unobtainable: No Constitutional: Reports: no symptoms HEENT: Repors: no symptoms Allergies: Coded Allergies: IODINE AND IODIDE CONTAINING PRODUC (Verified Allergy, Mild, itching and pruritis, 06/25/17) Uncoded Allergies: CONTRAST/DYE (Allergy, Intermediate, PRURITIS AND ITCHING, 06/25/17) Objective Last 24 Hour Vital Signs Date Time Temp Pulse Resp B/P (MAP) Pulse Ox O2 Delivery O2 Flow Rate FiO2 07/14/17 10:40 93 Room Air 21 07/14/17 10:40 64 20 Room Air 21 07/14/17 10:40 Room Air 21 07/14/17 09:52 89 118/67 07/14/17 09:52 118/67 07/14/17 08:00 98.9 89 18 118/67 96 Nasal Cannula 2.0 98.9 07/14/17 08:00 102 07/14/17 05:49 123 130/93 07/14/17 04:24 99.1 123 22 130/93 95 Nasal Cannula 4.0 99.1 07/14/17 03:49 121 07/14/17 00:20 123 131/89 07/14/17 00:12 123 07/13/17 23:41 99.5 123 20 131/89 94 Nasal Cannula 4.0 99.5 07/13/17 20:48 115 135/62 07/13/17 20:31 Nasal Cannula 4.0 36 07/13/17 20:31 95 Nasal Cannula 4.0 36 07/13/17 20:31 104 22 Nasal Cannula 4.0 36 07/13/17 20:01 98.2 116 20 125/88 95 Nasal Cannula 4.0 98.2 07/13/17 20:00 111 07/13/17 17:45 109 124/84 07/13/17 17:30 124/84 07/13/17 16:12 98.2 109 21 124/84 97 98.2 07/13/17 16:00 119 07/13/17 12:49 91 116/86 07/13/17 12:06 98.1 91 21 116/86 98 98.1 Intake and Output 07/13/17 07/14/17 19:00 07:00 Intake Total 420 ml 500 ml Balance 420 ml 500 ml Intake Oral 420 ml 500 ml # Voids 2 # Bowel Movements 2 Objective General Appearance: WD/WN HEENT: normocephalic, atraumatic, anicteric Respiratory/Chest: loud rhonchi Cardiovascular: normal peripheral pulses, normal rate, regular rhythm Abdomen: normal bowel sounds, soft, non tender, no organomegaly Genitourinary: normal external genitalia Extremities: no cyanosis Skin: no rash, no lesions 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, no motor/sensory deficits Lymphatic: no neck adenopathy, no groin adenopathy Laboratory Tests 07/14/17 07:30: White Blood Count 5.9, Red Blood Count 2.99L, Hemoglobin 9.4L, Hematocrit 31.6L , Mean Corpuscular Volume 106H, Mean Corpuscular Hemoglobin 31.4H, Mean Corpuscular Hemoglobin Concent 29.7L, Red Cell Distribution Width 17.8H, Platelet Count 83L, Mean Platelet Volume 6.8, Neutrophils (%) (Auto) , Lymphocytes (%) (Auto) , Monocytes (%) (Auto) , Eosinophils (%) (Auto) , Basophils (%) (Auto) , Differential Total Cells Counted 100, Neutrophils % ( Manual) 45, Lymphocytes % (Manual) 27, Monocytes % (Manual) 20H, Eosinophils % ( Manual) 7H, Basophils % (Manual) 1, Band Neutrophils 0, Nucleated Red Blood Cells 1, Platelet Estimate DecreasedL, Platelet Morphology Normal, Hypochromasia 1+, Anisocytosis 1+, Sodium Level 136, Potassium Level 5.8H, Chloride Level 98, Carbon Dioxide Level 27, Anion Gap 11, Blood Urea Nitrogen 81H, Creatinine 14.1H, Estimat Glomerular Filtration Rate 4.4, Glucose Level 120H, Calcium Level 8.5, Random Amikacin Level [Pending] Current Medications Medications (Trade) Dose Ordered Sig/Jose Route PRN Reason Start Time Stop Time Status Last Admin Dose Admin Alprazolam (Xanax) 2 mg DAILYPRN PRN ORAL For Anxiety 07/09/17 15:15 07/16/17 15:14 07/14/17 00:28 Amikacin Protocol (Amikacin pharmacy to dose) 1 ea DAILY PRN MISC Per rx protocol 07/06/17 09:00 08/03/17 15:14 Amikacin Sulfate 1000 mg/Dextrose 114 ml @ 228 mls/hr FRI-FRI-FRI IV 07/14/17 21:00 07/21/17 20:59 Apixaban (Eliquis) 2.5 mg BID ORAL 07/06/17 18:00 08/05/17 17:59 07/14/17 09:51 Carisoprodol (Soma) 350 mg Q6H PRN ORAL MUSCLE SPASMS 07/06/17 07:00 07/14/17 18:59 07/12/17 18:12 Chlorhexidine Gluconate (Mireille-Hex 2%) 1 applic DAILY@2000 TOPIC 07/06/17 20:00 08/02/17 19:59 07/13/17 20:47 Clonidine HCl (Catapres Tab) 0.1 mg Q4H PRN ORAL bp over 160 syst 07/06/17 07:30 07/19/17 11:29 Dextrose (Dextrose 50%) 25 ml STAT PRN IV HYPOGLYCEMIA 07/09/17 08:30 08/08/17 08:29 Dextrose (Dextrose 50%) 50 ml STAT PRN IV Hypoglycemia 07/09/17 08:30 07/14/17 18:59 Diltiazem HCl (Cardizem) 10 mg Q1H PRN IVP tachycardia 07/08/17 15:30 08/07/17 15:29 07/09/17 22:42 Diltiazem HCl (Cardizem) 30 mg EVERY 6 HOURS ORAL 07/10/17 19:30 08/09/17 19:29 07/14/17 05:49 Docusate Sodium (Colace) 100 mg THREE TIMES A DAY ORAL 07/06/17 09:00 07/18/17 13:00 07/14/17 09:50 Ethambutol HCl (Myambutol) 1,000 mg 3XW ORAL 07/07/17 09:00 07/18/17 23:59 07/14/17 09:50 Hydromorphone HCl (Dilaudid) 2 mg Q4H PRN IVP Severe Pain (Pain Scale 7-10) 07/09/17 12:45 07/16/17 12:44 07/14/17 09:53 Levofloxacin (Levaquin) 750 mg EVERY OTHER DAY@2000 ORAL 07/07/17 20:00 07/14/17 19:59 07/13/17 20:47 Lisinopril (Prinivil) 20 mg BID ORAL 07/06/17 09:00 07/19/17 18:00 07/14/17 09:52 Metoprolol Tartrate (Lopressor) 5 mg Q5MIN X 3 IVP 07/06/17 14:15 08/05/17 14:14 07/07/17 00:38 Metoprolol Tartrate (Lopressor) 100 mg Q12HR ORAL 07/11/17 21:00 08/10/17 20:59 07/14/17 09:52 Nitroglycerin (Ntg) 0.4 mg Q5M PRN SL Prn Chest Pain 07/06/17 04:00 07/19/17 11:29 Ondansetron HCl (Zofran) 4 mg Q6H PRN IVP Nausea & Vomiting 07/06/17 06:30 07/14/17 18:29 07/10/17 15:45 Pantoprazole (Protonix) 40 mg ACBREAKFAST ORAL 07/06/17 06:30 07/15/17 06:29 07/14/17 06:42 Polyethylene Glycol (Miralax) 17 gm DAILYPRN PRN ORAL Constipation 07/06/17 18:30 07/14/17 18:29 Promethazine HCl/ Codeine (Phenergan with Codeine) 5 ml Q4H PRN ORAL For Cough 07/06/17 06:30 07/22/17 10:30 07/08/17 01:56 Sevelamer Carbonate (Renvela) 2,400 mg THREE TIMES A DAY ORAL 07/06/17 09:00 07/16/17 18:44 07/14/17 09:51 Christine Morgan MD Jul 14, 2017 12:10
--- NOTE | 2017-07-14 12:31 | General Progress Note ---
Assessment/Plan Assessment/Plan Assessment - gallstones - abnormal LFT - suspect due to cirrhosis +/- meds - Periodic N/V with abnormal GB ultrasound, ? possibly biliary colic - patient declined HIDA - Anemia, multifactorial - OB (+) Stool - patient declined EGD/Colon - ESRD/HD - DM - HTN - COPD - Cavitary lung disease - Thrombocytopenia - cirrhotic appearing liver on CT - Hepatitis C Ab (+)/ PCR (-) - Poor prognosis Recommendations - PO as tolerated - follow symptoms and exam - monitor LFT - avoid hepatotoxic meds - abx per ID - transfuse PRN - Acid blockade Subjective Allergies: Coded Allergies: IODINE AND IODIDE CONTAINING PRODUC (Verified Allergy, Mild, itching and pruritis, 06/25/17) Uncoded Allergies: CONTRAST/DYE (Allergy, Intermediate, PRURITIS AND ITCHING, 06/25/17) Subjective above noted tolerating PO no vomiting more awake today Objective Last 24 Hour Vital Signs Date Time Temp Pulse Resp B/P (MAP) Pulse Ox O2 Delivery O2 Flow Rate FiO2 07/14/17 10:40 93 Room Air 21 07/14/17 10:40 64 20 Room Air 21 07/14/17 10:40 Room Air 21 07/14/17 09:52 89 118/67 07/14/17 09:52 118/67 07/14/17 08:00 98.9 89 18 118/67 96 Nasal Cannula 2.0 98.9 07/14/17 08:00 102 07/14/17 05:49 123 130/93 07/14/17 04:24 99.1 123 22 130/93 95 Nasal Cannula 4.0 99.1 07/14/17 03:49 121 07/14/17 00:20 123 131/89 07/14/17 00:12 123 07/13/17 23:41 99.5 123 20 131/89 94 Nasal Cannula 4.0 99.5 07/13/17 20:48 115 135/62 07/13/17 20:31 Nasal Cannula 4.0 36 07/13/17 20:31 95 Nasal Cannula 4.0 36 07/13/17 20:31 104 22 Nasal Cannula 4.0 36 07/13/17 20:01 98.2 116 20 125/88 95 Nasal Cannula 4.0 98.2 07/13/17 20:00 111 07/13/17 17:45 109 124/84 07/13/17 17:30 124/84 07/13/17 16:12 98.2 109 21 124/84 97 98.2 07/13/17 16:00 119 07/13/17 12:49 91 116/86 Intake and Output 07/13/17 07/14/17 19:00 07:00 Intake Total 420 ml 500 ml Balance 420 ml 500 ml Intake Oral 420 ml 500 ml # Voids 2 # Bowel Movements 2 Laboratory Tests 07/14/17 07:30: White Blood Count 5.9, Red Blood Count 2.99L, Hemoglobin 9.4L, Hematocrit 31.6L , Mean Corpuscular Volume 106H, Mean Corpuscular Hemoglobin 31.4H, Mean Corpuscular Hemoglobin Concent 29.7L, Red Cell Distribution Width 17.8H, Platelet Count 83L, Mean Platelet Volume 6.8, Neutrophils (%) (Auto) , Lymphocytes (%) (Auto) , Monocytes (%) (Auto) , Eosinophils (%) (Auto) , Basophils (%) (Auto) , Differential Total Cells Counted 100, Neutrophils % ( Manual) 45, Lymphocytes % (Manual) 27, Monocytes % (Manual) 20H, Eosinophils % ( Manual) 7H, Basophils % (Manual) 1, Band Neutrophils 0, Nucleated Red Blood Cells 1, Platelet Estimate DecreasedL, Platelet Morphology Normal, Hypochromasia 1+, Anisocytosis 1+, Sodium Level 136, Potassium Level 5.8H, Chloride Level 98, Carbon Dioxide Level 27, Anion Gap 11, Blood Urea Nitrogen 81H, Creatinine 14.1H, Estimat Glomerular Filtration Rate 4.4, Glucose Level 120H, Calcium Level 8.5, Random Amikacin Level [Pending] Height (Feet): 5 Height (Inches): 7.00 Weight (Pounds): 234 Objective WDWN AA Man NCAT supple CTA RRR Soft mildly distended, (+) improved RUQ TTP, (+) trunk edema (+) leg edema PERCY JOYNER Jul 14, 2017 12:31
--- NOTE | 2017-07-14 14:44 | Nephrology Progress Note ---
Assessment/Plan Problem List: (1) ESRD (end stage renal disease) on dialysis (2) Shortness of breath (3) Anemia Assessment Anemia ESRD , missed HD on admission , admitted with high K and pulmonary edema Acute respiratory distress due to volume overload elevated troponin r/o ACS h/o COPD ? exacerbation HTN urgency Cardiomyopathy L AICD anemia of chronic kidney disease Hx of CVA Plan Plan: HD next 07/14 today- will care for high K Max UF Transfused Phos binders BP meds adjustment Optimize cardiac status per orders Subjective ROS Limited/Unobtainable: No Constitutional: Reports: malaise, weakness Objective Objective Last 24 Hour Vital Signs Date Time Temp Pulse Resp B/P (MAP) Pulse Ox O2 Delivery O2 Flow Rate FiO2 07/14/17 12:56 64 122/77 07/14/17 10:40 93 Room Air 21 07/14/17 10:40 64 20 Room Air 21 07/14/17 10:40 Room Air 21 07/14/17 09:52 89 118/67 07/14/17 09:52 118/67 07/14/17 08:00 98.9 89 18 118/67 96 Nasal Cannula 2.0 98.9 07/14/17 08:00 102 07/14/17 05:49 123 130/93 07/14/17 04:24 99.1 123 22 130/93 95 Nasal Cannula 4.0 99.1 07/14/17 03:49 121 07/14/17 00:20 123 131/89 07/14/17 00:12 123 07/13/17 23:41 99.5 123 20 131/89 94 Nasal Cannula 4.0 99.5 07/13/17 20:48 115 135/62 07/13/17 20:31 Nasal Cannula 4.0 36 07/13/17 20:31 95 Nasal Cannula 4.0 36 07/13/17 20:31 104 22 Nasal Cannula 4.0 36 07/13/17 20:01 98.2 116 20 125/88 95 Nasal Cannula 4.0 98.2 07/13/17 20:00 111 07/13/17 17:45 109 124/84 07/13/17 17:30 124/84 07/13/17 16:12 98.2 109 21 124/84 97 98.2 07/13/17 16:00 119 Intake and Output 07/13/17 07/14/17 19:00 07:00 Intake Total 420 ml 500 ml Balance 420 ml 500 ml Intake Oral 420 ml 500 ml # Voids 2 # Bowel Movements 2 Laboratory Tests 07/14/17 07:30: White Blood Count 5.9, Red Blood Count 2.99L, Hemoglobin 9.4L, Hematocrit 31.6L , Mean Corpuscular Volume 106H, Mean Corpuscular Hemoglobin 31.4H, Mean Corpuscular Hemoglobin Concent 29.7L, Red Cell Distribution Width 17.8H, Platelet Count 83L, Mean Platelet Volume 6.8, Neutrophils (%) (Auto) , Lymphocytes (%) (Auto) , Monocytes (%) (Auto) , Eosinophils (%) (Auto) , Basophils (%) (Auto) , Differential Total Cells Counted 100, Neutrophils % ( Manual) 45, Lymphocytes % (Manual) 27, Monocytes % (Manual) 20H, Eosinophils % ( Manual) 7H, Basophils % (Manual) 1, Band Neutrophils 0, Nucleated Red Blood Cells 1, Platelet Estimate DecreasedL, Platelet Morphology Normal, Hypochromasia 1+, Anisocytosis 1+, Sodium Level 136, Potassium Level 5.8H, Chloride Level 98, Carbon Dioxide Level 27, Anion Gap 11, Blood Urea Nitrogen 81H, Creatinine 14.1H, Estimat Glomerular Filtration Rate 4.4, Glucose Level 120H, Calcium Level 8.5, Random Amikacin Level 39.4 Height (Feet): 5 Height (Inches): 7.00 Weight (Pounds): 234 General Appearance: no apparent distress Cardiovascular: tachycardia Respiratory/Chest: decreased breath sounds Abdomen: distended Objective no change LIAM MONTELONGO Jul 14, 2017 14:44
--- NOTE | 2017-07-14 15:59 | Infectious Diseases Prog Note ---
Assessment/Plan Assessment/Plan Cavitary PNA. SCx: Neg ( m/l necrotizing Pneum, vs anaerobic abscess, doubt TB or fungal ) ; improving - 07/09 SP BAL Cx( Abby and MOJGAN : Colonizers ) , Path : Neg for fungus and Malignancy -CT chest 06/25: Since the prior study of 06/15/2017, and. From further reduction in size of previously demonstrated thick walled right upper lobe cavitary mass. This was previously thought to most likely represent a cavitary inflammatory mass, and the interim reduction in size certainly supports that. Much less likely a cavitary neoplasm, but follow-up to resolution is recommended. Markedly improved parenchymal disease bilaterally, since the previous study. Nonetheless , extensive atelectasis and groundglass consolidation persists. Persistent small right pleural effusion, smaller than on the prior study. Resolved left pleural effusion 6 mm nodular opacity in the right upper lobe, not evident previously but likely obscured by surrounding consolidated lung parenchyma. This should be followed up in 6 months to one year depending on results of interim follow-up exams T-SPOT :Neg AFB x 3 : Neg MTB PCR x2 : neg cryptococcus Ag, Histoplams mycelial Ab , Blastomyces ab : neg ; histoplasma yeast ab (not able to be done due to anticomplementary activity) -Cocci, Asp ag p -Fungitell + 144 (?aspergillosis vs m/l false positive) CT chest 06/15: Slightly smaller (6 cm diameter ) but mostly unchanged cavitary lesion in the right lung, previously thought to represent a cavitating inflammatory process. Lung abscess is certainly a possibility. Fairly extensive bilateral pulmonary parenchymal consolidation, slightly increased from previous exam of 06/05/2017. Likely a combination of pulmonary edema and pneumonia. Small right and trace left pleural effusion, new/increased from the previous study. CT 06/05: 7.8 x 5.3 x 6.6 cm dense opacity in the posterior inferior right upper lobe with a central cavitation. CRP 14 Influenza negative Coccidioidal ,Galactomannan : NEG ( PER LAB ) Transaminitis , improving after stopping rifampin / Hep C cirrhosis- no active Hep C as VL not detected -CT abd/p: Evidence of hepatic cirrhosis. Hepatosplenomegaly. evidence of generalized anasarca, with pleural fluid and generalized subcutaneous edema. Cholelithiasis, also previously reported. Possible diverticulosis. No evidence of diverticulitis US Abd : Cholelithiasis. There is gallbladder wall thickening, likely related to hemodynamic abnormalities Splenomegaly. Evidence of hepatic cirrhosis HIV : NEG Hep Panel B neg , C Ab : +ve , VL not detected leukopenia and TCP 2/2 splenomegaly Seizure disorder History of CVA History of pacemaker placement Hyperlipidemia Hypertension COPD/asthma End-stage renal disease, on hemodialysis Diabetes Anxiety Anemia Echo, ejection fraction 45% to 50%. PLAN: - cont Zoysn d# 7 ( pt SOB and CXR worsen , better coverage of anaerobes, PSA and Providencia ); abx d# 40 / 42, then will switch to oral Clinda till resolution of of abscess Continue empiric Ethambutol and Levaquin, Amikacin ( empiric TB AB Rx d# 30 as per TB control request, this was DW TB control , still insists to cont w TB regiment till final cultures are back ) 07/07 SP Dc Flagyl 07/06 SP Voriconazole ( low antonio for fungal infection , and in the setting of cirrhosis ) 07/05 SP Micafungin abx d#20 , Rifampin 600mg qd #10 07/01 SP Ceftriaxone #10 06/28 SP Amikacin #15 06/25 SP PO Voriconazole #3 06/20 SP Liposomal Ampho #8 06/17 SP IV Vancomycin #14, Meropenem #5 06/13 SP Zosyn d# 10 3 SP Zithromax D# 6 f/u sputum culture (fungal, and AFB x3). BAL fungal and AFB Cx : P - CMP Subjective Allergies: Coded Allergies: IODINE AND IODIDE CONTAINING PRODUC (Verified Allergy, Mild, itching and pruritis, 06/25/17) Uncoded Allergies: CONTRAST/DYE (Allergy, Intermediate, PRURITIS AND ITCHING, 06/25/17) Subjective afebrile Objective Vital Signs Last 24 Hour Vital Signs Date Time Temp Pulse Resp B/P (MAP) Pulse Ox O2 Delivery O2 Flow Rate FiO2 07/14/17 12:56 64 122/77 07/14/17 12:00 98.9 64 18 122/77 94 Nasal Cannula 2.0 98.9 07/14/17 12:00 118 07/14/17 10:40 93 Room Air 21 07/14/17 10:40 64 20 Room Air 21 07/14/17 10:40 Room Air 21 07/14/17 09:52 89 118/67 07/14/17 09:52 118/67 07/14/17 08:00 98.9 89 18 118/67 96 Nasal Cannula 2.0 98.9 07/14/17 08:00 102 07/14/17 05:49 123 130/93 07/14/17 04:24 99.1 123 22 130/93 95 Nasal Cannula 4.0 99.1 07/14/17 03:49 121 07/14/17 00:20 123 131/89 07/14/17 00:12 123 07/13/17 23:41 99.5 123 20 131/89 94 Nasal Cannula 4.0 99.5 07/13/17 20:48 115 135/62 07/13/17 20:31 Nasal Cannula 4.0 36 07/13/17 20:31 95 Nasal Cannula 4.0 36 07/13/17 20:31 104 22 Nasal Cannula 4.0 36 07/13/17 20:01 98.2 116 20 125/88 95 Nasal Cannula 4.0 98.2 07/13/17 20:00 111 07/13/17 17:45 109 124/84 07/13/17 17:30 124/84 07/13/17 16:12 98.2 109 21 124/84 97 98.2 07/13/17 16:00 119 Height (Feet): 5 Height (Inches): 7.00 Weight (Pounds): 234 HEENT: anicteric Respiratory/Chest: no respiratory distress Cardiovascular: regularly irregular Abdomen: no organomegaly Laboratory Tests Test 07/14/17 07:30 White Blood Count 5.9 K/UL (4.8-10.8) Red Blood Count 2.99 M/UL (4.70-6.10) L Hemoglobin 9.4 G/DL (14.2-18.0) L Hematocrit 31.6 % (42.0-52.0) L Mean Corpuscular Volume 106 FL (80-99) H Mean Corpuscular Hemoglobin 31.4 PG (27.0-31.0) H Mean Corpuscular Hemoglobin Concent 29.7 G/DL (32.0-36.0) L Red Cell Distribution Width 17.8 % (11.6-14.8) H Platelet Count 83 K/UL (150-450) L Mean Platelet Volume 6.8 FL (6.5-10.1) Neutrophils (%) (Auto) % (45.0-75.0) Lymphocytes (%) (Auto) % (20.0-45.0) Monocytes (%) (Auto) % (1.0-10.0) Eosinophils (%) (Auto) % (0.0-3.0) Basophils (%) (Auto) % (0.0-2.0) Differential Total Cells Counted 100 Neutrophils % (Manual) 45 % (45-75) Lymphocytes % (Manual) 27 % (20-45) Monocytes % (Manual) 20 % (1-10) H Eosinophils % (Manual) 7 % (0-3) H Basophils % (Manual) 1 % (0-2) Band Neutrophils 0 % (0-8) Nucleated Red Blood Cells 1 /100 WBC Platelet Estimate Decreased L Platelet Morphology Normal Hypochromasia 1+ Anisocytosis 1+ Sodium Level 136 MMOL/L (136-145) Potassium Level 5.8 MMOL/L (3.5-5.1) H Chloride Level 98 MMOL/L (98-107) Carbon Dioxide Level 27 MMOL/L (21-32) Anion Gap 11 mmol/L (5-15) Blood Urea Nitrogen 81 mg/dL (7-18) H Creatinine 14.1 MG/DL (0.55-1.30) H Estimat Glomerular Filtration Rate 4.4 mL/min (>60) Glucose Level 120 MG/DL (74-106) H Calcium Level 8.5 MG/DL (8.5-10.1) Random Amikacin Level 39.4 MG/L Current Medications Medications (Trade) Dose Ordered Sig/Jose Route PRN Reason Start Time Stop Time Status Last Admin Dose Admin Alprazolam (Xanax) 2 mg DAILYPRN PRN ORAL For Anxiety 07/09/17 15:15 07/16/17 15:14 07/14/17 00:28 Amikacin Protocol (Amikacin pharmacy to dose) 1 ea DAILY PRN MISC Per rx protocol 07/06/17 09:00 08/03/17 15:14 Amikacin Sulfate 1000 mg/Dextrose 114 ml @ 228 mls/hr MON-WED-FRI IV 07/14/17 21:00 07/21/17 20:59 Apixaban (Eliquis) 2.5 mg BID ORAL 07/06/17 18:00 08/05/17 17:59 07/14/17 09:51 Carisoprodol (Soma) 350 mg Q6H PRN ORAL MUSCLE SPASMS 07/06/17 07:00 07/14/17 18:59 07/12/17 18:12 Chlorhexidine Gluconate (Mireille-Hex 2%) 1 applic DAILY@1999 TOPIC 07/06/17 20:00 08/02/17 19:59 07/13/17 20:47 Clonidine HCl (Catapres Tab) 0.1 mg Q4H PRN ORAL bp over 160 syst 07/06/17 07:30 07/19/17 11:29 Dextrose (Dextrose 50%) 25 ml STAT PRN IV HYPOGLYCEMIA 07/09/17 08:30 08/08/17 08:29 Dextrose (Dextrose 50%) 50 ml STAT PRN IV Hypoglycemia 07/09/17 08:30 07/14/17 18:59 Diltiazem HCl (Cardizem) 10 mg Q1H PRN IVP tachycardia 07/08/17 15:30 08/07/17 15:29 07/09/17 22:42 Diltiazem HCl (Cardizem) 30 mg EVERY 6 HOURS ORAL 07/10/17 19:30 08/09/17 19:29 07/14/17 12:56 Docusate Sodium (Colace) 100 mg THREE TIMES A DAY ORAL 07/06/17 09:00 07/18/17 13:00 07/14/17 13:00 Ethambutol HCl (Myambutol) 1,000 mg 3XW ORAL 07/07/17 09:00 07/18/17 23:59 07/14/17 09:50 Hydromorphone HCl (Dilaudid) 2 mg Q4H PRN IVP Severe Pain (Pain Scale 7-10) 07/09/17 12:45 07/16/17 12:44 07/14/17 14:21 Levofloxacin (Levaquin) 750 mg EVERY OTHER DAY@1999 ORAL 07/07/17 20:00 07/21/17 23:00 07/13/17 20:47 Lisinopril (Prinivil) 20 mg BID ORAL 07/06/17 09:00 07/19/17 18:00 4/9/18 09:52 Metoprolol Tartrate (Lopressor) 5 mg Q5MIN X 3 IVP 07/06/17 14:15 08/05/17 14:14 07/07/17 00:38 Metoprolol Tartrate (Lopressor) 100 mg Q12HR ORAL 07/11/17 21:00 08/10/17 20:59 07/14/17 09:52 Nitroglycerin (Ntg) 0.4 mg Q5M PRN SL Prn Chest Pain 07/06/17 04:00 07/19/17 11:29 Ondansetron HCl (Zofran) 4 mg Q6H PRN IVP Nausea & Vomiting 07/06/17 06:30 07/14/17 18:29 07/10/17 15:45 Pantoprazole (Protonix) 40 mg ACBREAKFAST ORAL 07/06/17 06:30 07/15/17 06:29 07/14/17 06:42 Polyethylene Glycol (Miralax) 17 gm DAILYPRN PRN ORAL Constipation 07/06/17 18:30 07/14/17 18:29 Promethazine HCl/ Codeine (Phenergan with Codeine) 5 ml Q4H PRN ORAL For Cough 07/06/17 06:30 07/22/17 10:30 07/08/17 01:56 Sevelamer Carbonate (Renvela) 2,400 mg THREE TIMES A DAY ORAL 07/06/17 09:00 07/16/17 18:44 07/14/17 13:01 Cristofer Antunez MD Jul 14, 2017 15:59
[2017-07-14] MEDS ORDERED: Tubing IV Secondary IV ONE (16:05)
--- NOTE | 2017-07-14 19:58 | Cardiology Progress Note ---
Assessment/Plan Assessment/Plan pleuritic chest pain neg recent sig perfusion abn; systolic dysfunction on mild degree involving the septum cavitating lung lesion improved on recent ct esrd htn anemia icd hx biotonix , interrogated 07/09/19 edema afib / atrial tachy thrombocytopenia jsut coverted to sinus plt low is on eliquis for stroke prevention venous duplex neg echo reviewed swma in septum (possible) as tech difficult study ef 45% dialysis per dr grimaldo may need more fluid removal afb smear neg ct noted icd interrogated yest no shock fucntion fine will consider amiod ads heart rate was very difficult to control Subjective ROS Limited/Unobtainable: Yes Respiratory: Denies: shortness of breath Gastrointestinal/Abdominal: Denies: abdominal pain Genitourinary: Denies: burning Objective Last 24 Hour Vital Signs Date Time Temp Pulse Resp B/P (MAP) Pulse Ox O2 Delivery O2 Flow Rate FiO2 07/14/17 19:27 55 18 Nasal Cannula 2.0 28 07/14/17 19:27 Nasal Cannula 2.0 28 07/14/17 19:27 94 Room Air 2.0 28 07/14/17 19:25 94 07/14/17 18:00 80 127/78 07/14/17 18:00 127/78 07/14/17 16:00 98.0 80 18 127/78 95 Nasal Cannula 2.0 98.0 07/14/17 12:56 64 122/77 07/14/17 12:00 98.9 64 18 122/77 94 Nasal Cannula 2.0 98.9 07/14/17 12:00 118 07/14/17 10:40 93 Room Air 21 07/14/17 10:40 64 20 Room Air 21 07/14/17 10:40 Room Air 21 07/14/17 09:52 89 118/67 07/14/17 09:52 118/67 07/14/17 08:00 98.9 89 18 118/67 96 Nasal Cannula 2.0 98.9 07/14/17 08:00 102 07/14/17 05:49 123 130/93 07/14/17 04:24 99.1 123 22 130/93 95 Nasal Cannula 4.0 99.1 07/14/17 03:49 121 07/14/17 00:20 123 131/89 07/14/17 00:12 123 07/13/17 23:41 99.5 123 20 131/89 94 Nasal Cannula 4.0 99.5 07/13/17 20:48 115 135/62 07/13/17 20:31 Nasal Cannula 4.0 36 07/13/17 20:31 95 Nasal Cannula 4.0 36 07/13/17 20:31 104 22 Nasal Cannula 4.0 36 07/13/17 20:01 98.2 116 20 125/88 95 Nasal Cannula 4.0 98.2 07/13/17 20:00 111 General Appearance: alert Neck: no JVD Cardiovascular: normal rate, regular rhythm Respiratory/Chest: lungs clear Abdomen: normal bowel sounds, non tender, soft Extremities: no swelling Intake and Output 07/13/17 07/14/17 19:00 07:00 Intake Total 420 ml 500 ml Balance 420 ml 500 ml Intake Oral 420 ml 500 ml # Voids 2 # Bowel Movements 2 Laboratory Tests Test 07/14/17 07:30 White Blood Count 5.9 K/UL (4.8-10.8) Red Blood Count 2.99 M/UL (4.70-6.10) L Hemoglobin 9.4 G/DL (14.2-18.0) L Hematocrit 31.6 % (42.0-52.0) L Mean Corpuscular Volume 106 FL (80-99) H Mean Corpuscular Hemoglobin 31.4 PG (27.0-31.0) H Mean Corpuscular Hemoglobin Concent 29.7 G/DL (32.0-36.0) L Red Cell Distribution Width 17.8 % (11.6-14.8) H Platelet Count 83 K/UL (150-450) L Mean Platelet Volume 6.8 FL (6.5-10.1) Neutrophils (%) (Auto) % (45.0-75.0) Lymphocytes (%) (Auto) % (20.0-45.0) Monocytes (%) (Auto) % (1.0-10.0) Eosinophils (%) (Auto) % (0.0-3.0) Basophils (%) (Auto) % (0.0-2.0) Differential Total Cells Counted 100 Neutrophils % (Manual) 45 % (45-75) Lymphocytes % (Manual) 27 % (20-45) Monocytes % (Manual) 20 % (1-10) H Eosinophils % (Manual) 7 % (0-3) H Basophils % (Manual) 1 % (0-2) Band Neutrophils 0 % (0-8) Nucleated Red Blood Cells 1 /100 WBC Platelet Estimate Decreased L Platelet Morphology Normal Hypochromasia 1+ Anisocytosis 1+ Sodium Level 136 MMOL/L (136-145) Potassium Level 5.8 MMOL/L (3.5-5.1) H Chloride Level 98 MMOL/L (98-107) Carbon Dioxide Level 27 MMOL/L (21-32) Anion Gap 11 mmol/L (5-15) Blood Urea Nitrogen 81 mg/dL (7-18) H Creatinine 14.1 MG/DL (0.55-1.30) H Estimat Glomerular Filtration Rate 4.4 mL/min (>60) Glucose Level 120 MG/DL (74-106) H Calcium Level 8.5 MG/DL (8.5-10.1) Random Amikacin Level 39.4 MG/L PRECIOUS GARCIA Jul 14, 2017 19:58
--- NOTE | 2017-07-14 20:16 | Internal Med Progress Note ---
Subjective Date of Service: Jul 14, 2017 Physician Name Zoey Pires Attending Physician Chaitanya Weinstein MD Current Medications Medications (Trade) Dose Ordered Sig/Jose Route PRN Reason Start Time Stop Time Status Last Admin Dose Admin Alprazolam (Xanax) 2 mg DAILYPRN PRN ORAL For Anxiety 07/09/17 15:15 07/16/17 15:14 07/14/17 00:28 Amikacin Protocol (Amikacin pharmacy to dose) 1 ea DAILY PRN MISC Per rx protocol 07/06/17 09:00 08/03/17 15:14 Amikacin Sulfate 1000 mg/Dextrose 114 ml @ 228 mls/hr MON-FRI-FRI IV 07/14/17 21:00 07/21/17 20:59 Amiodarone HCl (Cordarone) 200 mg EVERY 12 HOURS ORAL 07/14/17 21:00 08/13/17 20:59 Apixaban (Eliquis) 2.5 mg BID ORAL 07/06/17 18:00 08/05/17 17:59 07/14/17 09:51 Chlorhexidine Gluconate (Mireille-Hex 2%) 1 applic DAILY@2000 TOPIC 07/06/17 20:00 08/02/17 19:59 07/13/17 20:47 Clonidine HCl (Catapres Tab) 0.1 mg Q4H PRN ORAL bp over 160 syst 07/06/17 07:30 07/19/17 11:29 Dextrose (Dextrose 50%) 25 ml STAT PRN IV HYPOGLYCEMIA 07/09/17 08:30 08/08/17 08:29 Diltiazem HCl (Cardizem) 10 mg Q1H PRN IVP tachycardia 07/08/17 15:30 08/07/17 15:29 07/09/17 22:42 Diltiazem HCl (Cardizem) 30 mg EVERY 6 HOURS ORAL 07/10/17 19:30 08/09/17 19:29 07/14/17 12:56 Docusate Sodium (Colace) 100 mg THREE TIMES A DAY ORAL 07/06/17 09:00 07/18/17 13:00 07/14/17 13:00 Ethambutol HCl (Myambutol) 1,000 mg 3XW ORAL 07/07/17 09:00 07/18/17 23:59 07/14/17 09:50 Hydromorphone HCl (Dilaudid) 2 mg Q4H PRN IVP Severe Pain (Pain Scale 7-10) 07/09/17 12:45 07/16/17 12:44 07/14/17 19:17 Levofloxacin (Levaquin) 750 mg EVERY OTHER DAY@2000 ORAL 07/07/17 20:00 07/21/17 23:00 07/13/17 20:47 Lisinopril (Prinivil) 20 mg BID ORAL 07/06/17 09:00 07/19/17 18:00 07/14/17 09:52 Metoprolol Tartrate (Lopressor) 5 mg Q5MIN X 3 IVP 07/06/17 14:15 08/05/17 14:14 07/07/17 00:38 Metoprolol Tartrate (Lopressor) 100 mg Q12HR ORAL 07/11/17 21:00 08/10/17 20:59 07/14/17 09:52 Nitroglycerin (Ntg) 0.4 mg Q5M PRN SL Prn Chest Pain 07/06/17 04:00 07/19/17 11:29 Pantoprazole (Protonix) 40 mg ACBREAKFAST ORAL 07/06/17 06:30 07/15/17 06:29 07/14/17 06:42 Promethazine HCl/ Codeine (Phenergan with Codeine) 5 ml Q4H PRN ORAL For Cough 07/06/17 06:30 07/22/17 10:30 07/08/17 01:56 Sevelamer Carbonate (Renvela) 2,400 mg THREE TIMES A DAY ORAL 07/06/17 09:00 07/16/17 18:44 07/14/17 13:01 Allergies: Coded Allergies: IODINE AND IODIDE CONTAINING PRODUC (Verified Allergy, Mild, itching and pruritis, 06/25/17) Uncoded Allergies: CONTRAST/DYE (Allergy, Intermediate, PRURITIS AND ITCHING, 06/25/17) ROS Limited/Unobtainable: No Constitutional: Reports: no symptoms HEENT: Reports: no symptoms Cardiovascular: Reports: no symptoms Respiratory: Reports: no symptoms Gastrointestinal/Abdominal: Reports: no symptoms Genitourinary: Reports: no symptoms Neurologic/Psychiatric: Reports: no symptoms Subjective 57 YO M admitted with chest pain and shortness of breath. Now pneumonia and candelaria heart failure. Back on nasal canula. Cover for Int Misbah-Dr Weinstein. Now atrial flutter improving ventricular rate. Objective Last Vital Signs Date Time Temp Pulse Resp B/P (MAP) Pulse Ox O2 Delivery O2 Flow Rate FiO2 07/14/17 19:27 55 18 Nasal Cannula 2.0 28 07/14/17 19:27 94 07/14/17 18:00 127/78 07/14/17 16:00 98.0 98.0 Laboratory Tests Test 07/14/17 07:30 White Blood Count 5.9 K/UL (4.8-10.8) Red Blood Count 2.99 M/UL (4.70-6.10) L Hemoglobin 9.4 G/DL (14.2-18.0) L Hematocrit 31.6 % (42.0-52.0) L Mean Corpuscular Volume 106 FL (80-99) H Mean Corpuscular Hemoglobin 31.4 PG (27.0-31.0) H Mean Corpuscular Hemoglobin Concent 29.7 G/DL (32.0-36.0) L Red Cell Distribution Width 17.8 % (11.6-14.8) H Platelet Count 83 K/UL (150-450) L Mean Platelet Volume 6.8 FL (6.5-10.1) Neutrophils (%) (Auto) % (45.0-75.0) Lymphocytes (%) (Auto) % (20.0-45.0) Monocytes (%) (Auto) % (1.0-10.0) Eosinophils (%) (Auto) % (0.0-3.0) Basophils (%) (Auto) % (0.0-2.0) Differential Total Cells Counted 100 Neutrophils % (Manual) 45 % (45-75) Lymphocytes % (Manual) 27 % (20-45) Monocytes % (Manual) 20 % (1-10) H Eosinophils % (Manual) 7 % (0-3) H Basophils % (Manual) 1 % (0-2) Band Neutrophils 0 % (0-8) Nucleated Red Blood Cells 1 /100 WBC Platelet Estimate Decreased L Platelet Morphology Normal Hypochromasia 1+ Anisocytosis 1+ Sodium Level 136 MMOL/L (136-145) Potassium Level 5.8 MMOL/L (3.5-5.1) H Chloride Level 98 MMOL/L (98-107) Carbon Dioxide Level 27 MMOL/L (21-32) Anion Gap 11 mmol/L (5-15) Blood Urea Nitrogen 81 mg/dL (7-18) H Creatinine 14.1 MG/DL (0.55-1.30) H Estimat Glomerular Filtration Rate 4.4 mL/min (>60) Glucose Level 120 MG/DL (74-106) H Calcium Level 8.5 MG/DL (8.5-10.1) Random Amikacin Level 39.4 MG/L Intake and Output 07/13/17 07/14/17 19:00 07:00 Intake Total 420 ml 500 ml Balance 420 ml 500 ml Intake Oral 420 ml 500 ml # Voids 2 # Bowel Movements 2 Objective General Appearance: WD/WN, alert, moderate distress EENT: PERRL/EOMI, normal ENT inspection Neck: non-tender, normal alignment, supple, normal inspection Cardiovascular: Tachycardia; normal peripheral pulses, normal rate, regular rhythm, no gallop/murmur, no JVD Respiratory/Chest: Nasal canula; respiratory distress, crackles/rales, rhonchi - bilaterally, expiratory wheezing Abdomen: normal bowel sounds, non tender, soft, no organomegaly, no mass Extremities: normal range of motion Neurologic: industrial custodian 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, no motor/sensory deficits Skin: normal pigmentation, warm/dry Assessment/Plan Problem List: (1) Atrial flutter with rapid ventricular response Assessment & Plan: D/C coreg; start metoprolol and IV diltiazem per cardiology consult. (2) Respiratory failure Assessment & Plan: CHF and Pneumonia. Currently on nasal canula. See pulmonay note. (3) Pleuritic chest pain (4) Hemoptysis Assessment & Plan: Due to pneumonia (5) Pneumonia Assessment & Plan: Providencia and pseudamonas. RUL and cavitary. Concerning for TB. Await AFB cultures-see ID consult. Continue vanco and ethambutol per ID. Continue rocephin, micafungin, flagyl, amikacin, levaquin, and rifampin (6) Shortness of breath (7) ESRD (end stage renal disease) on dialysis Assessment & Plan: See nephrology note. Next Hemodialysis 07/14/17 per nephrology (8) Hyperkalemia Assessment & Plan: Due to renal failure. Hemodialysis 06/12/17 per nephrology (9) COPD (chronic obstructive pulmonary disease) (10) HTN (hypertension) Assessment & Plan: Continue coreg and lisinopril. (11) CHF (congestive heart failure) (12) Elevated troponin Assessment & Plan: ?due to renal failure? See cardiology note. (13) Intractable abdominal pain Assessment & Plan: See surgery note. Await CT abdomen (14) Conjunctivitis Assessment & Plan: start tobramycin (15) Diarrhea Assessment & Plan: Send stool for C. Diff Assessment/Plan Discharge planning - coordination with [facility] pending ZOEY PIRES Jul 14, 2017 20:16
[2017-07-14] MEDS ORDERED: Amikacin 1,000 MG in D5W 110 ML IV SCH (21:00)
[2017-07-14] MEDS: Amiodarone 200mg tab ORAL SCH (21:31)
[2017-07-14] MEDS: Dyna-Hex 2% Top Sol 2oz TOPIC SCH (21:31)
--- NOTE | 2017-07-14 23:00 | General Progress Note ---
Assessment/Plan Assessment/Plan #. Anemia secondary to chronic disease. --> Hemoglobin levels have been stable. No blood transfusion required at this time. --> S/P abd CAT scan revealing evidence of hepatic cirrhosis. --> Continue to closely monitor and trend cbc daily. --> Anemia workup completed and reviewed. Iron 42, TIBC 180, Ferritin 593, B12 876. --> Ferritin is >500, hgb goal is >7 --> Anemia w/u has been reviewed --> ++Occult blood. Consider GI Services and Recs. #. Thrombocytopenia. --> Hepatitis C ab ++, PCR - --> Monitor platelet level. Transfuse if platelet count <20k --> Levels improving. Continue to trend daily. #. Left leg dvt --> acute onset, will need to review final duplex results --> begin on apixaban daily x 3 months, low h/h will need to monitor closely --> okay to change to different anticoagulant if renal clearance an issue --> If h/h downtrends below 7.5, consider ivc filter placement. --> Hemoglobin currently >7.5 # Hepatosplenomegaly. Ascites. There is also evidence of generalized anasarca, with pleural fluid and generalized subcutaneous edema --> Abd pain improved on pain management --> Refer to surgery note. #. Anemia of kidney disease --> HD as needed per nephrology team --> Monitor closely. --> Does not require iron at this time #. Generalized body ache related to fluid overload. #. End-stage renal disease, on hemodialysis as needed --> On hemodialysis #. Respiratory failure due to CHF and pneumonia. --> Providencia and pseudomonas. --> On vancomycin and ethambutol per ID. --> Chest pain, on pain management. #. Poor prognosis. #. Shortness of breath. Due to underlying pneumonia. #. Atrial flutter with rapid ventricular response. On metoprolol and diltiazem. Subjective Date patient seen: Jul 14, 2017 Constitutional: Denies: no symptoms, chills, diaphoresis, fever, malaise, weakness, other HEENT: Denies: no symptoms, eye pain, blurred vision, tearing, double vision, ear pain, ear discharge, nose pain, nose congestion, throat pain, throat swelling, mouth pain, mouth swelling, other Cardiovascular: Denies: no symptoms, chest pain, edema, irregular heart rate, lightheadedness, palpitations, syncope, other Respiratory: Denies: no symptoms, cough, orthopnea, shortness of breath, SOB with excertion, SOB at rest, sputum, stridor, wheezing, other Gastrointestinal/Abdominal: Denies: no symptoms, abdomen distended, abdominal pain, black stools, tarry stools, blood in stool, constipated, diarrhea, difficulty swallowing, nausea, poor appetite, poor fluid intake, rectal bleeding , vomiting, other Genitourinary: Denies: no symptoms, burning, discharge, frequency, flank pain, hematuria, incontinence, pain, urgency, other Neurologic/Psychiatric: Denies: no symptoms, anxiety, depressed, emotional problems, headache, numbness, paresthesia, pre-existing deficit, seizure, tingling, tremors, weakness, other Hematologic/Lymphatic: Reports: anemia Allergies: Coded Allergies: IODINE AND IODIDE CONTAINING PRODUC (Verified Allergy, Mild, itching and pruritis, 06/25/17) Uncoded Allergies: CONTRAST/DYE (Allergy, Intermediate, PRURITIS AND ITCHING, 06/25/17) Subjective S/P HD. No fever or chills. Objective Last 24 Hour Vital Signs Date Time Temp Pulse Resp B/P (MAP) Pulse Ox O2 Delivery O2 Flow Rate FiO2 07/14/17 21:32 75 120/57 07/14/17 21:22 Nasal Cannula 2.0 07/14/17 21:15 97.7 76 28 120/57 Nasal Cannula 2.0 97.7 07/14/17 20:00 72 07/14/17 20:00 96.6 75 19 132/65 95 Nasal Cannula 2.0 96.6 07/14/17 19:27 55 18 Nasal Cannula 2.0 28 07/14/17 19:27 Nasal Cannula 2.0 28 07/14/17 19:27 94 Room Air 2.0 28 07/14/17 19:25 94 07/14/17 18:00 80 127/78 07/14/17 18:00 127/78 07/14/17 17:30 97.5 75 40 118/77 Nasal Cannula 3.0 97.5 07/14/17 17:30 Nasal Cannula 2.0 07/14/17 16:00 98.0 80 18 127/78 95 Nasal Cannula 2.0 98.0 07/14/17 16:00 72 07/14/17 12:56 64 122/77 07/14/17 12:00 98.9 64 18 122/77 94 Nasal Cannula 2.0 98.9 07/14/17 12:00 118 07/14/17 10:40 93 Room Air 21 07/14/17 10:40 64 20 Room Air 21 07/14/17 10:40 Room Air 21 07/14/17 09:52 89 118/67 07/14/17 09:52 118/67 07/14/17 08:00 98.9 89 18 118/67 96 Nasal Cannula 2.0 98.9 07/14/17 08:00 102 07/14/17 05:49 123 130/93 07/14/17 04:24 99.1 123 22 130/93 95 Nasal Cannula 4.0 99.1 07/14/17 03:49 121 07/14/17 00:20 123 131/89 07/14/17 00:12 123 07/13/17 23:41 99.5 123 20 131/89 94 Nasal Cannula 4.0 99.5 Intake and Output 07/13/17 07/14/17 19:00 07:00 Intake Total 420 ml 500 ml Balance 420 ml 500 ml Intake Oral 420 ml 500 ml # Voids 2 # Bowel Movements 2 Laboratory Tests 07/14/17 07:30: White Blood Count 5.9, Red Blood Count 2.99L, Hemoglobin 9.4L, Hematocrit 31.6L , Mean Corpuscular Volume 106H, Mean Corpuscular Hemoglobin 31.4H, Mean Corpuscular Hemoglobin Concent 29.7L, Red Cell Distribution Width 17.8H, Platelet Count 83L, Mean Platelet Volume 6.8, Neutrophils (%) (Auto) , Lymphocytes (%) (Auto) , Monocytes (%) (Auto) , Eosinophils (%) (Auto) , Basophils (%) (Auto) , Differential Total Cells Counted 100, Neutrophils % ( Manual) 45, Lymphocytes % (Manual) 27, Monocytes % (Manual) 20H, Eosinophils % ( Manual) 7H, Basophils % (Manual) 1, Band Neutrophils 0, Nucleated Red Blood Cells 1, Platelet Estimate DecreasedL, Platelet Morphology Normal, Hypochromasia 1+, Anisocytosis 1+, Sodium Level 136, Potassium Level 5.8H, Chloride Level 98, Carbon Dioxide Level 27, Anion Gap 11, Blood Urea Nitrogen 81H, Creatinine 14.1H, Estimat Glomerular Filtration Rate 4.4, Glucose Level 120H, Calcium Level 8.5, Random Amikacin Level 39.4 Height (Feet): 5 Height (Inches): 7.00 Weight (Pounds): 234 Respiratory/Chest: decreased breath sounds Irving Parker MD Jul 14, 2017 23:00
[2017-07-15] VITALS: BP 131/84
[2017-07-15 04:00] VITALS: BP 132/86
[2017-07-15] MEDS: dilTIAZem HCl 30mg tab ORAL SCH ×3 (06:26→18:55)
[2017-07-15 07:02] LABS: HEMATOCRIT 32.4 % (42.0-52.0); HEMOGLOBIN 10.2 G/DL (14.2-18.0); MEAN CORPUSCULAR VOLUME 106 FL (80-99); PLATELET COUNT 85 K/UL (150-450); RED BLOOD COUNT 3.07 M/UL (4.70-6.10); RED CELL DISTRIBUTION WIDTH 16.6 % (11.6-14.8); WHITE BLOOD COUNT 5.3 K/UL (4.8-10.8)
[2017-07-15 07:21] LABS: ALANINE AMINOTRANSFERASE 23 U/L (12-78); ALBUMIN 2.5 G/DL (3.4-5.0); ALBUMIN/GLOBULIN RATIO 0.5 (1.0-2.7); ALKALINE PHOSPHATASE 122 U/L (46-116); ANION GAP 12 mmol/L (5-15); ASPARTATE AMINO TRANSFERASE 45 U/L (15-37); BILIRUBIN,TOTAL 1.7 MG/DL (0.2-1.0); BLOOD UREA NITROGEN 74 mg/dL (7-18); CALCIUM 9.3 MG/DL (8.5-10.1); CARBON DIOXIDE 27 MMOL/L (21-32); CHLORIDE 97 MMOL/L (98-107); CREATININE 13.5 MG/DL (0.55-1.30); POTASSIUM 5.9 MMOL/L (3.5-5.1); SODIUM 136 MMOL/L (136-145)
[2017-07-15 07:23] LABS: BILIRUBIN,DIRECT 1.1 MG/DL (0.0-0.3)
[2017-07-15 08:00] VITALS: BP 117/80
[2017-07-15] MEDS: Amiodarone 200mg tab ORAL SCH (08:35)
[2017-07-15] MEDS: Docusate 100mg cap ORAL SCH ×3 (08:35→18:55)
[2017-07-15] MEDS: Eliquis 2.5mg tablet ORAL SCH ×2 (08:36→18:55)
[2017-07-15] MEDS: Lisinopril 20mg tab ORAL SCH ×2 (08:48→18:55)
[2017-07-15] MEDS ORDERED: Sodium Polystyrene Sulfonate 15gm Powder ORAL ONE (10:15)
--- NOTE | 2017-07-15 10:43 | Diagnostic Imaging Report ---
Indication: Dyspnea Technique: One view of the chest Comparison: 07/09/2017 Findings: There is decreased interstitial congestion. Areas of linear scarring and/or atelectasis bilaterally, right midlung cavitary lesion again demonstrated. Left chest AICD, right jugular central venous catheter remain. The heart remains enlarged Impression: Over 6 days, considerable improvement of previously demonstrated pulmonary venous congestion Stable findings as noted, including right lung cavitary lesion, cardiomegaly
[2017-07-15 12:00] VITALS: BP 127/79
--- NOTE | 2017-07-15 12:19 | Pulmonology Progress Note ---
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 prbc prn on anti TB meds wtih IV Amikacin, ethambutol cxr in am BAL showing vre and Abby Subjective ROS Limited/Unobtainable: No Constitutional: Reports: no symptoms HEENT: Repors: no symptoms Allergies: Coded Allergies: IODINE AND IODIDE CONTAINING PRODUC (Verified Allergy, Mild, itching and pruritis, 06/25/17) Uncoded Allergies: CONTRAST/DYE (Allergy, Intermediate, PRURITIS AND ITCHING, 06/25/17) Objective Last 24 Hour Vital Signs Date Time Temp Pulse Resp B/P (MAP) Pulse Ox O2 Delivery O2 Flow Rate FiO2 07/15/17 08:48 117/80 07/15/17 08:35 69 117/80 07/15/17 08:00 97.1 69 21 117/80 99 Nasal Cannula 2.0 97.1 07/15/17 07:16 Room Air 07/15/17 07:15 95 Room Air 21 07/15/17 07:15 71 18 Room Air 21 07/15/17 06:26 75 118/68 07/15/17 04:00 68 07/15/17 04:00 96.7 70 20 132/86 97 Nasal Cannula 2.0 96.7 07/15/17 00:00 79 07/15/17 00:00 99.0 75 20 131/84 97 Nasal Cannula 2.0 99.0 07/14/17 23:36 75 131/84 07/14/17 21:32 75 120/57 07/14/17 21:22 Nasal Cannula 2.0 07/14/17 21:15 97.7 76 28 120/57 Nasal Cannula 2.0 97.7 07/14/17 20:00 72 07/14/17 20:00 96.6 75 19 132/65 95 Nasal Cannula 2.0 96.6 07/14/17 19:27 55 18 Nasal Cannula 2.0 28 07/14/17 19:27 Nasal Cannula 2.0 28 07/14/17 19:27 94 Room Air 2.0 28 07/14/17 19:25 94 07/14/17 18:00 80 127/78 07/14/17 18:00 127/78 07/14/17 17:30 97.5 75 40 118/77 Nasal Cannula 3.0 97.5 07/14/17 17:30 Nasal Cannula 2.0 07/14/17 16:00 98.0 80 18 127/78 95 Nasal Cannula 2.0 98.0 07/14/17 16:00 72 07/14/17 12:56 64 122/77 Intake and Output 07/14/17 07/15/17 19:00 07:00 Intake Total 114 ml Output Total 4000 ml Balance -3886 ml IV Total 114 ml Hemodialysis UF 4000 ml # Voids 4 # Bowel Movements 2 Objective General Appearance: WD/WN HEENT: normocephalic, atraumatic, anicteric Respiratory/Chest: loud rhonchi Cardiovascular: normal peripheral pulses, normal rate, regular rhythm Abdomen: normal bowel sounds, soft, non tender, no organomegaly Genitourinary: normal external genitalia Extremities: no cyanosis Skin: no rash, no lesions 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, no motor/sensory deficits Lymphatic: no neck adenopathy, no groin adenopathy Laboratory Tests 07/15/17 06:30: White Blood Count 5.3, Red Blood Count 3.07L, Hemoglobin 10.2L, Hematocrit 32.4L , Mean Corpuscular Volume 106H, Mean Corpuscular Hemoglobin 33.2H, Mean Corpuscular Hemoglobin Concent 31.5L, Red Cell Distribution Width 16.6H, Platelet Count 85L, Mean Platelet Volume 7.3, Neutrophils (%) (Auto) , Lymphocytes (%) (Auto) , Monocytes (%) (Auto) , Eosinophils (%) (Auto) , Basophils (%) (Auto) , Differential Total Cells Counted 100, Neutrophils % ( Manual) 49, Lymphocytes % (Manual) 24, Monocytes % (Manual) 21H, Eosinophils % ( Manual) 4H, Basophils % (Manual) 2, Band Neutrophils 0, Platelet Estimate DecreasedL, Platelet Morphology Normal, Polychromasia 1+, Hypochromasia 1+, Anisocytosis 1+, Macrocytosis 1+, Sodium Level 136, Potassium Level 5.9H, Chloride Level 97L, Carbon Dioxide Level 27, Anion Gap 12, Blood Urea Nitrogen 74H, Creatinine 13.5H, Estimat Glomerular Filtration Rate 4.6, Glucose Level 91 , Calcium Level 9.3, Total Bilirubin 1.7H, Direct Bilirubin 1.1H, Aspartate Amino Transf (AST/SGOT) 45H, Alanine Aminotransferase (ALT/SGPT) 23, Alkaline Phosphatase 122H, Pro-B-Type Natriuretic Peptide 87588G, Total Protein 7.2, Albumin 2.5L, Globulin 4.7, Albumin/Globulin Ratio 0.5L Current Medications Medications (Trade) Dose Ordered Sig/Jose Route PRN Reason Start Time Stop Time Status Last Admin Dose Admin Alprazolam (Xanax) 2 mg DAILYPRN PRN ORAL For Anxiety 07/09/17 15:15 07/16/17 15:14 07/14/17 00:28 Amikacin Protocol (Amikacin pharmacy to dose) 1 ea DAILY PRN MISC Per rx protocol 07/06/17 09:00 08/03/17 15:14 Amikacin Sulfate 1000 mg/Dextrose 114 ml @ 228 mls/hr MON-WED-FRI IV 07/14/17 21:00 07/21/17 20:59 07/14/17 21:31 Amiodarone HCl (Cordarone) 200 mg EVERY 12 HOURS ORAL 07/14/17 21:00 08/13/17 20:59 07/15/17 08:35 Apixaban (Eliquis) 2.5 mg BID ORAL 07/06/17 18:00 08/05/17 17:59 07/15/17 08:36 Chlorhexidine Gluconate (Mireille-Hex 2%) 1 applic DAILY@2000 TOPIC 07/06/17 20:00 08/02/17 19:59 07/14/17 21:31 Clonidine HCl (Catapres Tab) 0.1 mg Q4H PRN ORAL bp over 160 syst 07/06/17 07:30 07/19/17 11:29 Dextrose (Dextrose 50%) 25 ml STAT PRN IV HYPOGLYCEMIA 07/09/17 08:30 08/08/17 08:29 Diltiazem HCl (Cardizem) 10 mg Q1H PRN IVP tachycardia 07/08/17 15:30 08/07/17 15:29 07/09/17 22:42 Diltiazem HCl (Cardizem) 30 mg EVERY 6 HOURS ORAL 07/10/17 19:30 08/09/17 19:29 07/15/17 06:26 Docusate Sodium (Colace) 100 mg THREE TIMES A DAY ORAL 07/06/17 09:00 07/18/17 13:00 07/15/17 08:35 Ethambutol HCl (Myambutol) 1,000 mg 3XW ORAL 07/07/17 09:00 07/21/17 23:59 07/14/17 09:50 Hydromorphone HCl (Dilaudid) 2 mg Q4H PRN IVP Severe Pain (Pain Scale 7-10) 07/09/17 12:45 07/16/17 12:44 07/15/17 08:28 Levofloxacin (Levaquin) 750 mg EVERY OTHER DAY@1999 ORAL 07/07/17 20:00 07/21/17 23:00 07/13/17 20:47 Lisinopril (Prinivil) 20 mg BID ORAL 07/06/17 09:00 07/19/17 18:00 07/15/17 08:48 Metoprolol Tartrate (Lopressor) 5 mg Q5MIN X 3 IVP 07/06/17 14:15 08/05/17 14:14 07/07/17 00:38 Metoprolol Tartrate (Lopressor) 100 mg Q12HR ORAL 07/11/17 21:00 08/10/17 20:59 07/15/17 08:35 Nitroglycerin (Ntg) 0.4 mg Q5M PRN SL Prn Chest Pain 07/06/17 04:00 07/19/17 11:29 Promethazine HCl/ Codeine (Phenergan with Codeine) 5 ml Q4H PRN ORAL For Cough 07/06/17 06:30 07/22/17 10:30 07/08/17 01:56 Sevelamer Carbonate (Renvela) 2,400 mg THREE TIMES A DAY ORAL 07/06/17 09:00 07/16/17 18:44 07/15/17 08:35 Christine Morgan MD Jul 15, 2017 12:19
--- NOTE | 2017-07-15 13:07 | Nephrology Progress Note ---
Assessment/Plan Problem List: (1) ESRD (end stage renal disease) on dialysis (2) Shortness of breath (3) Anemia Assessment Anemia ESRD , missed HD on admission , admitted with high K and pulmonary edema Acute respiratory distress due to volume overload elevated troponin r/o ACS h/o COPD ? exacerbation HTN urgency Cardiomyopathy L AICD anemia of chronic kidney disease Hx of CVA Plan Plan: HD next 07/14 today- will care for high K with Kayexelate Max UF Transfused Phos binders BP meds adjustment Optimize cardiac status per orders Subjective ROS Limited/Unobtainable: No Constitutional: Reports: malaise Objective Objective Last 24 Hour Vital Signs Date Time Temp Pulse Resp B/P (MAP) Pulse Ox O2 Delivery O2 Flow Rate FiO2 07/15/17 12:42 72 123/79 07/15/17 12:00 97.0 72 22 127/79 94 Nasal Cannula 2.0 97.0 07/15/17 08:48 117/80 07/15/17 08:35 69 117/80 07/15/17 08:00 97.1 69 21 117/80 99 Nasal Cannula 2.0 97.1 07/15/17 07:16 Room Air 07/15/17 07:15 95 Room Air 21 07/15/17 07:15 71 18 Room Air 21 07/15/17 06:26 75 118/68 07/15/17 04:00 68 07/15/17 04:00 96.7 70 20 132/86 97 Nasal Cannula 2.0 96.7 07/15/17 00:00 79 07/15/17 00:00 99.0 75 20 131/84 97 Nasal Cannula 2.0 99.0 07/14/17 23:36 75 131/84 07/14/17 21:32 75 120/57 07/14/17 21:22 Nasal Cannula 2.0 07/14/17 21:15 97.7 76 28 120/57 Nasal Cannula 2.0 97.7 07/14/17 20:00 72 07/14/17 20:00 96.6 75 19 132/65 95 Nasal Cannula 2.0 96.6 07/14/17 19:27 55 18 Nasal Cannula 2.0 28 07/14/17 19:27 Nasal Cannula 2.0 28 07/14/17 19:27 94 Room Air 2.0 28 07/14/17 19:25 94 4/9/18 18:00 80 127/78 07/14/17 18:00 127/78 07/14/17 17:30 97.5 75 40 118/77 Nasal Cannula 3.0 97.5 07/14/17 17:30 Nasal Cannula 2.0 07/14/17 16:00 98.0 80 18 127/78 95 Nasal Cannula 2.0 98.0 07/14/17 16:00 72 Intake and Output 07/14/17 07/15/17 19:00 07:00 Intake Total 114 ml Output Total 4000 ml Balance -3886 ml IV Total 114 ml Hemodialysis UF 4000 ml # Voids 4 # Bowel Movements 2 Laboratory Tests 07/15/17 06:30: White Blood Count 5.3, Red Blood Count 3.07L, Hemoglobin 10.2L, Hematocrit 32.4L , Mean Corpuscular Volume 106H, Mean Corpuscular Hemoglobin 33.2H, Mean Corpuscular Hemoglobin Concent 31.5L, Red Cell Distribution Width 16.6H, Platelet Count 85L, Mean Platelet Volume 7.3, Neutrophils (%) (Auto) , Lymphocytes (%) (Auto) , Monocytes (%) (Auto) , Eosinophils (%) (Auto) , Basophils (%) (Auto) , Differential Total Cells Counted 100, Neutrophils % ( Manual) 49, Lymphocytes % (Manual) 24, Monocytes % (Manual) 21H, Eosinophils % ( Manual) 4H, Basophils % (Manual) 2, Band Neutrophils 0, Platelet Estimate DecreasedL, Platelet Morphology Normal, Polychromasia 1+, Hypochromasia 1+, Anisocytosis 1+, Macrocytosis 1+, Sodium Level 136, Potassium Level 5.9H, Chloride Level 97L, Carbon Dioxide Level 27, Anion Gap 12, Blood Urea Nitrogen 74H, Creatinine 13.5H, Estimat Glomerular Filtration Rate 4.6, Glucose Level 91 , Calcium Level 9.3, Total Bilirubin 1.7H, Direct Bilirubin 1.1H, Aspartate Amino Transf (AST/SGOT) 45H, Alanine Aminotransferase (ALT/SGPT) 23, Alkaline Phosphatase 122H, Pro-B-Type Natriuretic Peptide 49705V, Total Protein 7.2, Albumin 2.5L, Globulin 4.7, Albumin/Globulin Ratio 0.5L Height (Feet): 5 Height (Inches): 7.00 Weight (Pounds): 233 General Appearance: mild distress Cardiovascular: tachycardia Respiratory/Chest: decreased breath sounds Abdomen: distended Objective no change LIAM MONTELONGO Jul 15, 2017 13:07
--- NOTE | 2017-07-15 14:06 | Infectious Diseases Prog Note ---
Assessment/Plan Assessment/Plan Cavitary PNA. SCx: Neg ( m/l necrotizing Pneum, vs anaerobic abscess, doubt TB or fungal ) ; improving - 07/09 SP BAL Cx( Abby and MOJGAN : Colonizers ) , Path : Neg for fungus and Malignancy -CT chest 06/25: Since the prior study of 06/15/2017, and. From further reduction in size of previously demonstrated thick walled right upper lobe cavitary mass. This was previously thought to most likely represent a cavitary inflammatory mass, and the interim reduction in size certainly supports that. Much less likely a cavitary neoplasm, but follow-up to resolution is recommended. Markedly improved parenchymal disease bilaterally, since the previous study. Nonetheless , extensive atelectasis and groundglass consolidation persists. Persistent small right pleural effusion, smaller than on the prior study. Resolved left pleural effusion 6 mm nodular opacity in the right upper lobe, not evident previously but likely obscured by surrounding consolidated lung parenchyma. This should be followed up in 6 months to one year depending on results of interim follow-up exams T-SPOT :Neg AFB x 3 : Neg MTB PCR x2 : neg cryptococcus Ag, Histoplams mycelial Ab , Blastomyces ab : neg ; histoplasma yeast ab (not able to be done due to anticomplementary activity) -Cocci, Asp ag p -Fungitell + 144 (?aspergillosis vs m/l false positive) CT chest 06/15: Slightly smaller (6 cm diameter ) but mostly unchanged cavitary lesion in the right lung, previously thought to represent a cavitating inflammatory process. Lung abscess is certainly a possibility. Fairly extensive bilateral pulmonary parenchymal consolidation, slightly increased from previous exam of 06/05/2017. Likely a combination of pulmonary edema and pneumonia. Small right and trace left pleural effusion, new/increased from the previous study. CT 06/05: 7.8 x 5.3 x 6.6 cm dense opacity in the posterior inferior right upper lobe with a central cavitation. CRP 14 Influenza negative Coccidioidal ,Galactomannan : NEG ( PER LAB ) Transaminitis , improving after stopping rifampin / Hep C cirrhosis- no active Hep C as VL not detected -CT abd/p: Evidence of hepatic cirrhosis. Hepatosplenomegaly. evidence of generalized anasarca, with pleural fluid and generalized subcutaneous edema. Cholelithiasis, also previously reported. Possible diverticulosis. No evidence of diverticulitis US Abd : Cholelithiasis. There is gallbladder wall thickening, likely related to hemodynamic abnormalities Splenomegaly. Evidence of hepatic cirrhosis HIV : NEG Hep Panel B neg , C Ab : +ve , VL not detected leukopenia and TCP 2/2 splenomegaly Seizure disorder History of CVA History of pacemaker placement Hyperlipidemia Hypertension COPD/asthma End-stage renal disease, on hemodialysis Diabetes Anxiety Anemia Echo, ejection fraction 45% to 50%. PLAN: - cont Zoysn d# 8 ( pt SOB and CXR worsen , better coverage of anaerobes, PSA and Providencia ); abx d# 41 / 42, then will switch to oral Clinda till resolution of of abscess Continue empiric Ethambutol and Levaquin, Amikacin ( empiric TB AB Rx d# 30 as per TB control request, this was DW TB control , still insists to cont w TB regiment till final cultures are back ) 07/07 SP Dc Flagyl 07/06 SP Voriconazole ( low antonio for fungal infection , and in the setting of cirrhosis ) 07/05 SP Micafungin abx d#20 , Rifampin 600mg qd #10 07/01 SP Ceftriaxone #10 06/28 SP Amikacin #15 06/25 SP PO Voriconazole #3 06/20 SP Liposomal Ampho #8 06/17 SP IV Vancomycin #14, Meropenem #5 06/13 SP Zosyn d# 10 3/ SP Zithromax D# 6 f/u sputum culture (fungal, and AFB x3). BAL fungal and AFB Cx : P - CMP - CT chest Subjective Allergies: Coded Allergies: IODINE AND IODIDE CONTAINING PRODUC (Verified Allergy, Mild, itching and pruritis, 06/25/17) Uncoded Allergies: CONTRAST/DYE (Allergy, Intermediate, PRURITIS AND ITCHING, 06/25/17) Subjective afebrile Objective Vital Signs Last 24 Hour Vital Signs Date Time Temp Pulse Resp B/P (MAP) Pulse Ox O2 Delivery O2 Flow Rate FiO2 07/15/17 12:42 72 123/79 07/15/17 12:00 97.0 72 22 127/79 94 Nasal Cannula 2.0 97.0 07/15/17 12:00 68 07/15/17 08:48 117/80 07/15/17 08:35 69 117/80 07/15/17 08:00 97.1 69 21 117/80 99 Nasal Cannula 2.0 97.1 07/15/17 08:00 69 07/15/17 07:16 Room Air 07/15/17 07:15 95 Room Air 21 07/15/17 07:15 71 18 Room Air 21 07/15/17 06:26 75 118/68 07/15/17 04:00 68 07/15/17 04:00 96.7 70 20 132/86 97 Nasal Cannula 2.0 96.7 07/15/17 00:00 79 07/15/17 00:00 99.0 75 20 131/84 97 Nasal Cannula 2.0 99.0 07/14/17 23:36 75 131/84 07/14/17 21:32 75 120/57 07/14/17 21:22 Nasal Cannula 2.0 07/14/17 21:15 97.7 76 28 120/57 Nasal Cannula 2.0 97.7 07/14/17 20:00 72 07/14/17 20:00 96.6 75 19 132/65 95 Nasal Cannula 2.0 96.6 07/14/17 19:27 55 18 Nasal Cannula 2.0 28 07/14/17 19:27 Nasal Cannula 2.0 28 07/14/17 19:27 94 Room Air 2.0 28 07/14/17 19:25 94 07/14/17 18:00 80 127/78 07/14/17 18:00 127/78 07/14/17 17:30 97.5 75 40 118/77 Nasal Cannula 3.0 97.5 07/14/17 17:30 Nasal Cannula 2.0 07/14/17 16:00 98.0 80 18 127/78 95 Nasal Cannula 2.0 98.0 07/14/17 16:00 72 Height (Feet): 5 Height (Inches): 7.00 Weight (Pounds): 233 HEENT: anicteric Respiratory/Chest: no accessory muscle use Cardiovascular: no gallop/murmur Abdomen: no organomegaly Laboratory Tests Test 07/15/17 06:30 White Blood Count 5.3 K/UL (4.8-10.8) Red Blood Count 3.07 M/UL (4.70-6.10) L Hemoglobin 10.2 G/DL (14.2-18.0) L Hematocrit 32.4 % (42.0-52.0) L Mean Corpuscular Volume 106 FL (80-99) H Mean Corpuscular Hemoglobin 33.2 PG (27.0-31.0) H Mean Corpuscular Hemoglobin Concent 31.5 G/DL (32.0-36.0) L Red Cell Distribution Width 16.6 % (11.6-14.8) H Platelet Count 85 K/UL (150-450) L Mean Platelet Volume 7.3 FL (6.5-10.1) Neutrophils (%) (Auto) % (45.0-75.0) Lymphocytes (%) (Auto) % (20.0-45.0) Monocytes (%) (Auto) % (1.0-10.0) Eosinophils (%) (Auto) % (0.0-3.0) Basophils (%) (Auto) % (0.0-2.0) Differential Total Cells Counted 100 Neutrophils % (Manual) 49 % (45-75) Lymphocytes % (Manual) 24 % (20-45) Monocytes % (Manual) 21 % (1-10) H Eosinophils % (Manual) 4 % (0-3) H Basophils % (Manual) 2 % (0-2) Band Neutrophils 0 % (0-8) Platelet Estimate Decreased L Platelet Morphology Normal Polychromasia 1+ Hypochromasia 1+ Anisocytosis 1+ Macrocytosis 1+ Sodium Level 136 MMOL/L (136-145) Potassium Level 5.9 MMOL/L (3.5-5.1) H Chloride Level 97 MMOL/L (98-107) L Carbon Dioxide Level 27 MMOL/L (21-32) Anion Gap 12 mmol/L (5-15) Blood Urea Nitrogen 74 mg/dL (7-18) H Creatinine 13.5 MG/DL (0.55-1.30) H Estimat Glomerular Filtration Rate 4.6 mL/min (>60) Glucose Level 91 MG/DL (74-106) Calcium Level 9.3 MG/DL (8.5-10.1) Total Bilirubin 1.7 MG/DL (0.2-1.0) H Direct Bilirubin 1.1 MG/DL (0.0-0.3) H Aspartate Amino Transf (AST/SGOT) 45 U/L (15-37) H Alanine Aminotransferase (ALT/SGPT) 23 U/L (12-78) Alkaline Phosphatase 122 U/L (46-116) H Pro-B-Type Natriuretic Peptide 20765 pg/mL (0-125) H Total Protein 7.2 G/DL (6.4-8.2) Albumin 2.5 G/DL (3.4-5.0) L Globulin 4.7 g/dL Albumin/Globulin Ratio 0.5 (1.0-2.7) L Current Medications Medications (Trade) Dose Ordered Sig/Jose Route PRN Reason Start Time Stop Time Status Last Admin Dose Admin Alprazolam (Xanax) 2 mg DAILYPRN PRN ORAL For Anxiety 07/09/17 15:15 07/16/17 15:14 07/14/17 00:28 Amikacin Protocol (Amikacin pharmacy to dose) 1 ea DAILY PRN MISC Per rx protocol 07/06/17 09:00 08/03/17 15:14 Amikacin Sulfate 1000 mg/Dextrose 114 ml @ 228 mls/hr FRI-FRI-FRI IV 07/14/17 21:00 07/21/17 20:59 07/14/17 21:31 Amiodarone HCl (Cordarone) 200 mg EVERY 12 HOURS ORAL 07/14/17 21:00 08/13/17 20:59 07/15/17 08:35 Apixaban (Eliquis) 2.5 mg BID ORAL 07/06/17 18:00 08/05/17 17:59 07/15/17 08:36 Chlorhexidine Gluconate (Mireille-Hex 2%) 1 applic DAILY@2000 TOPIC 07/06/17 20:00 08/02/17 19:59 07/14/17 21:31 Clonidine HCl (Catapres Tab) 0.1 mg Q4H PRN ORAL bp over 160 syst 07/06/17 07:30 07/19/17 11:29 Dextrose (Dextrose 50%) 25 ml STAT PRN IV HYPOGLYCEMIA 07/09/17 08:30 08/08/17 08:29 Diltiazem HCl (Cardizem) 10 mg Q1H PRN IVP tachycardia 07/08/17 15:30 08/07/17 15:29 07/09/17 22:42 Diltiazem HCl (Cardizem) 30 mg EVERY 6 HOURS ORAL 07/10/17 19:30 08/09/17 19:29 07/15/17 12:42 Docusate Sodium (Colace) 100 mg THREE TIMES A DAY ORAL 07/06/17 09:00 07/18/17 13:00 07/15/17 12:49 Ethambutol HCl (Myambutol) 1,000 mg 3XW ORAL 07/07/17 09:00 07/21/17 23:59 07/14/17 09:50 Hydromorphone HCl (Dilaudid) 2 mg Q4H PRN IVP Severe Pain (Pain Scale 7-10) 07/09/17 12:45 07/16/17 12:44 07/15/17 12:39 Levofloxacin (Levaquin) 750 mg EVERY OTHER DAY@1999 ORAL 07/07/17 20:00 07/21/17 23:00 07/13/17 20:47 Lisinopril (Prinivil) 20 mg BID ORAL 07/06/17 09:00 07/19/17 18:00 07/15/17 08:48 Metoprolol Tartrate (Lopressor) 5 mg Q5MIN X 3 IVP 07/06/17 14:15 08/05/17 14:14 07/07/17 00:38 Metoprolol Tartrate (Lopressor) 100 mg Q12HR ORAL 07/11/17 21:00 08/10/17 20:59 07/15/17 08:35 Nitroglycerin (Ntg) 0.4 mg Q5M PRN SL Prn Chest Pain 07/06/17 04:00 07/19/17 11:29 Promethazine HCl/ Codeine (Phenergan with Codeine) 5 ml Q4H PRN ORAL For Cough 07/06/17 06:30 07/22/17 10:30 07/08/17 01:56 Sevelamer Carbonate (Renvela) 2,400 mg THREE TIMES A DAY ORAL 07/06/17 09:00 07/16/17 18:44 07/15/17 12:50 Cristofer Antunez MD Jul 15, 2017 14:06
--- NOTE | 2017-07-15 14:43 | Cardiology Progress Note ---
Assessment/Plan Assessment/Plan pleuritic chest pain neg recent sig perfusion abn; systolic dysfunction on mild degree involving the septum cavitating lung lesion improved on recent ct esrd htn anemia icd hx biotonix , interrogated 07/09/19 edema afib / atrial tachy thrombocytopenia iodine allergy jsut coverted to sinus plt low is on eliquis for stroke prevention venous duplex neg echo reviewed swma in septum (possible) as tech difficult study ef 45% afb smear neg ct noted icd interrogated yest no shock fucntion fine dc amiod as iodine allergy cxr much improved on higher volume of UF with dialysis still needs more fluid removed Subjective Cardiovascular: Denies: chest pain, lightheadedness, palpitations Respiratory: Reports: shortness of breath Gastrointestinal/Abdominal: Denies: abdominal pain Genitourinary: Denies: burning Objective Last 24 Hour Vital Signs Date Time Temp Pulse Resp B/P (MAP) Pulse Ox O2 Delivery O2 Flow Rate FiO2 07/15/17 12:42 72 123/79 07/15/17 12:00 97.0 72 22 127/79 94 Nasal Cannula 2.0 97.0 07/15/17 12:00 68 07/15/17 08:48 117/80 07/15/17 08:35 69 117/80 07/15/17 08:00 97.1 69 21 117/80 99 Nasal Cannula 2.0 97.1 07/15/17 08:00 69 07/15/17 07:16 Room Air 07/15/17 07:15 95 Room Air 21 07/15/17 07:15 71 18 Room Air 21 07/15/17 06:26 75 118/68 07/15/17 04:00 68 07/15/17 04:00 96.7 70 20 132/86 97 Nasal Cannula 2.0 96.7 07/15/17 00:00 79 07/15/17 00:00 99.0 75 20 131/84 97 Nasal Cannula 2.0 99.0 07/14/17 23:36 75 131/84 07/14/17 21:32 75 120/57 07/14/17 21:22 Nasal Cannula 2.0 07/14/17 21:15 97.7 76 28 120/57 Nasal Cannula 2.0 97.7 07/14/17 20:00 72 07/14/17 20:00 96.6 75 19 132/65 95 Nasal Cannula 2.0 96.6 07/14/17 19:27 55 18 Nasal Cannula 2.0 28 07/14/17 19:27 Nasal Cannula 2.0 28 07/14/17 19:27 94 Room Air 2.0 28 07/14/17 19:25 94 07/14/17 18:00 80 127/78 07/14/17 18:00 127/78 07/14/17 17:30 97.5 75 40 118/77 Nasal Cannula 3.0 97.5 07/14/17 17:30 Nasal Cannula 2.0 07/14/17 16:00 98.0 80 18 127/78 95 Nasal Cannula 2.0 98.0 07/14/17 16:00 72 General Appearance: alert Neck: supple Cardiovascular: normal rate, regular rhythm Respiratory/Chest: lungs clear, normal breath sounds Abdomen: normal bowel sounds, non tender, soft Extremities: moderate edema Intake and Output 07/14/17 07/15/17 19:00 07:00 Intake Total 114 ml Output Total 4000 ml Balance -3886 ml IV Total 114 ml Hemodialysis UF 4000 ml # Voids 4 # Bowel Movements 2 Laboratory Tests Test 07/15/17 06:30 White Blood Count 5.3 K/UL (4.8-10.8) Red Blood Count 3.07 M/UL (4.70-6.10) L Hemoglobin 10.2 G/DL (14.2-18.0) L Hematocrit 32.4 % (42.0-52.0) L Mean Corpuscular Volume 106 FL (80-99) H Mean Corpuscular Hemoglobin 33.2 PG (27.0-31.0) H Mean Corpuscular Hemoglobin Concent 31.5 G/DL (32.0-36.0) L Red Cell Distribution Width 16.6 % (11.6-14.8) H Platelet Count 85 K/UL (150-450) L Mean Platelet Volume 7.3 FL (6.5-10.1) Neutrophils (%) (Auto) % (45.0-75.0) Lymphocytes (%) (Auto) % (20.0-45.0) Monocytes (%) (Auto) % (1.0-10.0) Eosinophils (%) (Auto) % (0.0-3.0) Basophils (%) (Auto) % (0.0-2.0) Differential Total Cells Counted 100 Neutrophils % (Manual) 49 % (45-75) Lymphocytes % (Manual) 24 % (20-45) Monocytes % (Manual) 21 % (1-10) H Eosinophils % (Manual) 4 % (0-3) H Basophils % (Manual) 2 % (0-2) Band Neutrophils 0 % (0-8) Platelet Estimate Decreased L Platelet Morphology Normal Polychromasia 1+ Hypochromasia 1+ Anisocytosis 1+ Macrocytosis 1+ Sodium Level 136 MMOL/L (136-145) Potassium Level 5.9 MMOL/L (3.5-5.1) H Chloride Level 97 MMOL/L (98-107) L Carbon Dioxide Level 27 MMOL/L (21-32) Anion Gap 12 mmol/L (5-15) Blood Urea Nitrogen 74 mg/dL (7-18) H Creatinine 13.5 MG/DL (0.55-1.30) H Estimat Glomerular Filtration Rate 4.6 mL/min (>60) Glucose Level 91 MG/DL (74-106) Calcium Level 9.3 MG/DL (8.5-10.1) Total Bilirubin 1.7 MG/DL (0.2-1.0) H Direct Bilirubin 1.1 MG/DL (0.0-0.3) H Aspartate Amino Transf (AST/SGOT) 45 U/L (15-37) H Alanine Aminotransferase (ALT/SGPT) 23 U/L (12-78) Alkaline Phosphatase 122 U/L (46-116) H Pro-B-Type Natriuretic Peptide 03521 pg/mL (0-125) H Total Protein 7.2 G/DL (6.4-8.2) Albumin 2.5 G/DL (3.4-5.0) L Globulin 4.7 g/dL Albumin/Globulin Ratio 0.5 (1.0-2.7) L PRECIOUS GARCIA Jul 15, 2017 14:43
[2017-07-15] MEDS ORDERED: Tubing IV Secondary IV ONE (15:30)
[2017-07-15] MEDS ORDERED: Piperacillin/Tazobactam 2.25 GM in D5W 55 ML IVPB SCH (15:30)
--- NOTE | 2017-07-15 16:24 | Diagnostic Imaging Report ---
Clinical Indication: Cavitary lung mass previously demonstrated Technique: Spiral acquisitions obtained through the chest. No IV contrast utilized, . Multiplanar reconstructions generated. Total dose length product 881.51 mGycm. CTDIvol(s) 25.48 mGy. Dose reduction achieved using automated exposure control Comparison: 06/26/2017 Findings: Again demonstrated is a cavitary lesion involving the inferior posterior right upper lobe. On the current study, no fluid is seen within the cavity, and in the previously demonstrated to areas of gas have coalesced into a single chamber. The cavity itself measures 2.8 cm in diameter, slightly larger than on the prior exam, but the overall lesion appears smaller, measuring 6.3 cm AP by 3.6 cm transverse by 2.3 cm craniocaudad currently. On the current exam, a large segmental bronchus is seen communicating directly with the lumen of the lesion. This is not evident on the earlier study. As previously, what is presumably a surgical staple line or dystrophic calcifications is seen at the periphery of the lesion. Mosaic perfusion pattern of the lungs is again demonstrated, appearing unchanged. A 4 mm nodule in the posterior right upper lobe, series 5 image 21, is again demonstrated and appears unchanged or perhaps slightly less prominent currently. Bands of presumed scarring are again seen in the inferior right upper lobe and in the right middle lobe. Bands of presumed scarring are again demonstrated in the inferior left upper lobe and in the left lower lobe. No new infiltrates. There is a small amount of pleural fluid on the right again demonstrated, appearing slightly increased in amount. The heart remains markedly enlarged. Left chest AICD, right jugular central venous catheter are again demonstrated. Some tubular calcifications in the superior vena cava likely reflect an old calcified fibrin sheath from a previous dialysis catheter. The main pulmonary artery is ectatic, measuring 37 mm in diameter. No mediastinal or hilar mass or adenopathy. The thyroid is largely obscured by streak artifact from the pacemaker. No axillary or chest wall mass or adenopathy. There is mild bilateral gynecomastia again demonstrated. Bones are unremarkable. The included upper abdominal anatomy again demonstrates ascites fluid and hepatomegaly. There is generalized edema of the bilateral flank subcutaneous fat as well as of the mesenteric fat. Left upper pole left renal cyst is again demonstrated. Previously reported gallstones are not included on the current imaging volume. Impression: Since prior study 06/26/2017, interim decrease in size of previously demonstrated posterior inferior right upper lobe cavitary lesion.. Features as described, including now evident communication with a segmental bronchus. Given described imaging features on previous exams as well as interim shrinkage, this most likely represents an inflammatory/infectious lesion. Note that previously demonstrated air-fluid level is no longer present Mosaic perfusion pattern of the lungs, also previously reported and appearing similar currently, likely reflecting mild pulmonary edema although other etiologies possible Fairly extensive linear opacities at both mid and lower lungs, similar to prior exam indicates this probably represents areas of parenchymal scarring Trace right pleural effusion Stable cardiomegaly Ectatic main pulmonary artery, could indicate pulmonary arterial hypertension Mild ascites, also previously reported Hepatomegaly, also previously reported Generalized edema of the bilateral flank subcutaneous fat and mesenteric fat Other findings as noted, including left upper pole renal cyst, bilateral gynecomastia, AICD The CT scanner at [facility] is accredited by the [employer] and the scans are performed using protocols designed to limit radiation exposure to as low as reasonably achievable to attain images of sufficient resolution adequate for diagnostic evaluation.
--- NOTE | 2017-07-15 16:49 | Internal Med Progress Note ---
Subjective Date of Service: Jul 15, 2017 Physician Name Zoey Pires Attending Physician Chaitanya Weinstein MD Current Medications Medications (Trade) Dose Ordered Sig/Jose Route PRN Reason Start Time Stop Time Status Last Admin Dose Admin Alprazolam (Xanax) 2 mg DAILYPRN PRN ORAL For Anxiety 07/09/17 15:15 07/16/17 15:14 07/14/17 00:28 Amikacin Protocol (Amikacin pharmacy to dose) 1 ea DAILY PRN MISC Per rx protocol 07/06/17 09:00 08/03/17 15:14 Amikacin Sulfate 1000 mg/Dextrose 114 ml @ 228 mls/hr MON-FRI-FRI IV 07/14/17 21:00 07/21/17 20:59 07/14/17 21:31 Apixaban (Eliquis) 2.5 mg BID ORAL 07/06/17 18:00 08/05/17 17:59 07/15/17 08:36 Chlorhexidine Gluconate (Mireille-Hex 2%) 1 applic DAILY@2000 TOPIC 07/06/17 20:00 08/02/17 19:59 07/14/17 21:31 Clonidine HCl (Catapres Tab) 0.1 mg Q4H PRN ORAL bp over 160 syst 07/06/17 07:30 07/19/17 11:29 Dextrose (Dextrose 50%) 25 ml STAT PRN IV HYPOGLYCEMIA 07/09/17 08:30 08/08/17 08:29 Diltiazem HCl (Cardizem) 10 mg Q1H PRN IVP tachycardia 07/08/17 15:30 08/07/17 15:29 07/09/17 22:42 Diltiazem HCl (Cardizem) 30 mg EVERY 6 HOURS ORAL 07/10/17 19:30 08/09/17 19:29 07/15/17 12:42 Docusate Sodium (Colace) 100 mg THREE TIMES A DAY ORAL 07/06/17 09:00 07/18/17 13:00 07/15/17 12:49 Ethambutol HCl (Myambutol) 1,000 mg 3XW ORAL 07/07/17 09:00 07/21/17 23:59 07/14/17 09:50 Hydromorphone HCl (Dilaudid) 2 mg Q4H PRN IVP Severe Pain (Pain Scale 7-10) 07/09/17 12:45 07/16/17 12:44 07/15/17 12:39 Levofloxacin (Levaquin) 750 mg EVERY OTHER DAY@1999 ORAL 07/07/17 20:00 07/21/17 23:00 07/13/17 20:47 Lisinopril (Prinivil) 20 mg BID ORAL 07/06/17 09:00 07/19/17 18:00 07/15/17 08:48 Metoprolol Tartrate (Lopressor) 5 mg Q5MIN X 3 IVP 07/06/17 14:15 08/05/17 14:14 07/07/17 00:38 Metoprolol Tartrate (Lopressor) 100 mg Q12HR ORAL 07/11/17 21:00 08/10/17 20:59 07/15/17 08:35 Nitroglycerin (Ntg) 0.4 mg Q5M PRN SL Prn Chest Pain 07/06/17 04:00 07/19/17 11:29 Piperacillin Sod/ Tazobactam Sod 2.25 gm/Dextrose 55 ml @ 110 mls/hr Q8H IVPB 07/15/17 15:30 07/22/17 15:29 Promethazine HCl/ Codeine (Phenergan with Codeine) 5 ml Q4H PRN ORAL For Cough 07/06/17 06:30 07/22/17 10:30 07/08/17 01:56 Sevelamer Carbonate (Renvela) 2,400 mg THREE TIMES A DAY ORAL 07/06/17 09:00 07/16/17 18:44 07/15/17 12:50 Allergies: Coded Allergies: IODINE AND IODIDE CONTAINING PRODUC (Verified Allergy, Mild, itching and pruritis, 06/25/17) Uncoded Allergies: CONTRAST/DYE (Allergy, Intermediate, PRURITIS AND ITCHING, 06/25/17) ROS Limited/Unobtainable: No Constitutional: Reports: no symptoms HEENT: Reports: no symptoms Cardiovascular: Reports: no symptoms Respiratory: Reports: no symptoms Gastrointestinal/Abdominal: Reports: no symptoms Genitourinary: Reports: no symptoms Neurologic/Psychiatric: Reports: no symptoms Subjective 57 YO M admitted with chest pain and shortness of breath. Now pneumonia and candelaria heart failure. Back on nasal canula. Cover for Int Misbah-Dr Weinstein. Now atrial flutter improving ventricular rate. Objective Last Vital Signs Date Time Temp Pulse Resp B/P (MAP) Pulse Ox O2 Delivery O2 Flow Rate FiO2 07/15/17 12:42 72 123/79 07/15/17 12:00 97.0 22 94 Nasal Cannula 2.0 97.0 07/15/17 07:15 21 Laboratory Tests Test 07/15/17 06:30 White Blood Count 5.3 K/UL (4.8-10.8) Red Blood Count 3.07 M/UL (4.70-6.10) L Hemoglobin 10.2 G/DL (14.2-18.0) L Hematocrit 32.4 % (42.0-52.0) L Mean Corpuscular Volume 106 FL (80-99) H Mean Corpuscular Hemoglobin 33.2 PG (27.0-31.0) H Mean Corpuscular Hemoglobin Concent 31.5 G/DL (32.0-36.0) L Red Cell Distribution Width 16.6 % (11.6-14.8) H Platelet Count 85 K/UL (150-450) L Mean Platelet Volume 7.3 FL (6.5-10.1) Neutrophils (%) (Auto) % (45.0-75.0) Lymphocytes (%) (Auto) % (20.0-45.0) Monocytes (%) (Auto) % (1.0-10.0) Eosinophils (%) (Auto) % (0.0-3.0) Basophils (%) (Auto) % (0.0-2.0) Differential Total Cells Counted 100 Neutrophils % (Manual) 49 % (45-75) Lymphocytes % (Manual) 24 % (20-45) Monocytes % (Manual) 21 % (1-10) H Eosinophils % (Manual) 4 % (0-3) H Basophils % (Manual) 2 % (0-2) Band Neutrophils 0 % (0-8) Platelet Estimate Decreased L Platelet Morphology Normal Polychromasia 1+ Hypochromasia 1+ Anisocytosis 1+ Macrocytosis 1+ Sodium Level 136 MMOL/L (136-145) Potassium Level 5.9 MMOL/L (3.5-5.1) H Chloride Level 97 MMOL/L (98-107) L Carbon Dioxide Level 27 MMOL/L (21-32) Anion Gap 12 mmol/L (5-15) Blood Urea Nitrogen 74 mg/dL (7-18) H Creatinine 13.5 MG/DL (0.55-1.30) H Estimat Glomerular Filtration Rate 4.6 mL/min (>60) Glucose Level 91 MG/DL (74-106) Calcium Level 9.3 MG/DL (8.5-10.1) Total Bilirubin 1.7 MG/DL (0.2-1.0) H Direct Bilirubin 1.1 MG/DL (0.0-0.3) H Aspartate Amino Transf (AST/SGOT) 45 U/L (15-37) H Alanine Aminotransferase (ALT/SGPT) 23 U/L (12-78) Alkaline Phosphatase 122 U/L (46-116) H Pro-B-Type Natriuretic Peptide 88822 pg/mL (0-125) H Total Protein 7.2 G/DL (6.4-8.2) Albumin 2.5 G/DL (3.4-5.0) L Globulin 4.7 g/dL Albumin/Globulin Ratio 0.5 (1.0-2.7) L Intake and Output 07/14/17 07/15/17 19:00 07:00 Intake Total 114 ml Output Total 4000 ml Balance -3886 ml IV Total 114 ml Hemodialysis UF 4000 ml # Voids 4 # Bowel Movements 2 Objective General Appearance: WD/WN, alert, moderate distress EENT: PERRL/EOMI, normal ENT inspection Neck: non-tender, normal alignment, supple, normal inspection Cardiovascular: Tachycardia; normal peripheral pulses, normal rate, regular rhythm, no gallop/murmur, no JVD Respiratory/Chest: Nasal canula; respiratory distress, crackles/rales, rhonchi - bilaterally, expiratory wheezing Abdomen: normal bowel sounds, non tender, soft, no organomegaly, no mass Extremities: normal range of motion 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 (2) Respiratory failure Assessment & Plan: CHF and Pneumonia. Currently on nasal canula. See pulmonay note. (3) Pleuritic chest pain (4) Hemoptysis Assessment & Plan: Due to pneumonia (5) Pneumonia Assessment & Plan: Providencia and pseudamonas. RUL and cavitary. Concerning for TB. Await AFB cultures-see ID consult. Continue vanco and ethambutol per ID. Continue rocephin, micafungin, flagyl, amikacin, levaquin, and rifampin (6) Shortness of breath (7) ESRD (end stage renal disease) on dialysis Assessment & Plan: See nephrology note. Last Hemodialysis 07/14/17 per nephrology (8) Hyperkalemia Assessment & Plan: Due to renal failure. Hemodialysis 06/13/17 per nephrology (9) COPD (chronic obstructive pulmonary disease) (10) HTN (hypertension) Assessment & Plan: Continue coreg and lisinopril. (11) CHF (congestive heart failure) (12) Elevated troponin Assessment & Plan: ?due to renal failure? See cardiology note. (13) Intractable abdominal pain Assessment & Plan: See surgery note. Await CT abdomen (14) Conjunctivitis Assessment & Plan: start tobramycin (15) Diarrhea Assessment & Plan: Send stool for C. Diff Status: not improved Assessment/Plan Discharge planning - coordination with [facility] pending ZOEY PIRES Jul 15, 2017 16:49
[2017-07-15] MEDS: ALPRAZolam 0.5mg tab ORAL PRN (18:58)
[2017-07-15] MEDS ORDERED: Nitroglycerin Subl 0.4mg tab SL PRN (19:20)
[2017-07-15] MEDS ORDERED: dilTIAZem HCl 25mg/5ml Inj IVP PRN (19:30)
[2017-07-15] MEDS ORDERED: Promethazine/Codeine 5ml UD ORAL PRN (19:32)
[2017-07-15 20:00] VITALS: BP 131/86
--- NOTE | 2017-07-15 20:26 | General Progress Note ---
Assessment/Plan Assessment/Plan Assessment - gallstones - abnormal LFT - suspect due to cirrhosis +/- meds - Periodic N/V with abnormal GB ultrasound, ? possibly biliary colic - patient declined HIDA - Anemia, multifactorial - OB (+) Stool - patient declined EGD/Colon - ESRD/HD - DM - HTN - COPD - Cavitary lung disease - Thrombocytopenia - cirrhotic appearing liver on CT - Hepatitis C Ab (+)/ PCR (-) - Poor prognosis Recommendations - PO as tolerated - follow symptoms and exam - monitor LFT - avoid hepatotoxic meds - abx per ID - transfuse PRN - Acid blockade Subjective Allergies: Coded Allergies: IODINE AND IODIDE CONTAINING PRODUC (Verified Allergy, Mild, itching and pruritis, 06/25/17) Uncoded Allergies: CONTRAST/DYE (Allergy, Intermediate, PRURITIS AND ITCHING, 06/25/17) Subjective above noted tolerating PO no vomiting c/o overall body pain Objective Last 24 Hour Vital Signs Date Time Temp Pulse Resp B/P (MAP) Pulse Ox O2 Delivery O2 Flow Rate FiO2 07/15/17 20:00 97.4 69 22 131/86 93 97.4 07/15/17 19:57 Nasal Cannula 2.0 28 07/15/17 19:56 67 18 Room Air 2.0 28 07/15/17 19:56 91 Nasal Cannula 2.0 28 07/15/17 18:55 72 123/79 07/15/17 18:55 123/79 07/15/17 12:42 72 123/79 07/15/17 12:00 97.0 72 22 127/79 94 Nasal Cannula 2.0 97.0 07/15/17 12:00 68 07/15/17 08:48 117/80 07/15/17 08:35 69 117/80 07/15/17 08:00 97.1 69 21 117/80 99 Nasal Cannula 2.0 97.1 07/15/17 08:00 69 07/15/17 07:16 Room Air 07/15/17 07:15 95 Room Air 21 07/15/17 07:15 71 18 Room Air 21 07/15/17 06:26 75 118/68 07/15/17 04:00 68 07/15/17 04:00 96.7 70 20 132/86 97 Nasal Cannula 2.0 96.7 07/15/17 00:00 79 07/15/17 00:00 99.0 75 20 131/84 97 Nasal Cannula 2.0 99.0 07/14/17 23:36 75 131/84 07/14/17 21:32 75 120/57 07/14/17 21:22 Nasal Cannula 2.0 07/14/17 21:15 97.7 76 28 120/57 Nasal Cannula 2.0 97.7 Intake and Output 07/14/17 07/15/17 19:00 07:00 Intake Total 114 ml Output Total 4000 ml Balance -3886 ml IV Total 114 ml Hemodialysis UF 4000 ml # Voids 4 # Bowel Movements 2 Laboratory Tests 07/15/17 06:30: White Blood Count 5.3, Red Blood Count 3.07L, Hemoglobin 10.2L, Hematocrit 32.4L , Mean Corpuscular Volume 106H, Mean Corpuscular Hemoglobin 33.2H, Mean Corpuscular Hemoglobin Concent 31.5L, Red Cell Distribution Width 16.6H, Platelet Count 85L, Mean Platelet Volume 7.3, Neutrophils (%) (Auto) , Lymphocytes (%) (Auto) , Monocytes (%) (Auto) , Eosinophils (%) (Auto) , Basophils (%) (Auto) , Differential Total Cells Counted 100, Neutrophils % ( Manual) 49, Lymphocytes % (Manual) 24, Monocytes % (Manual) 21H, Eosinophils % ( Manual) 4H, Basophils % (Manual) 2, Band Neutrophils 0, Platelet Estimate DecreasedL, Platelet Morphology Normal, Polychromasia 1+, Hypochromasia 1+, Anisocytosis 1+, Macrocytosis 1+, Sodium Level 136, Potassium Level 5.9H, Chloride Level 97L, Carbon Dioxide Level 27, Anion Gap 12, Blood Urea Nitrogen 74H, Creatinine 13.5H, Estimat Glomerular Filtration Rate 4.6, Glucose Level 91 , Calcium Level 9.3, Total Bilirubin 1.7H, Direct Bilirubin 1.1H, Aspartate Amino Transf (AST/SGOT) 45H, Alanine Aminotransferase (ALT/SGPT) 23, Alkaline Phosphatase 122H, Pro-B-Type Natriuretic Peptide 76926D, Total Protein 7.2, Albumin 2.5L, Globulin 4.7, Albumin/Globulin Ratio 0.5L Height (Feet): 5 Height (Inches): 7.00 Weight (Pounds): 233 Objective WDWN AA Man NCAT supple CTA RRR Soft mildly distended, (+) improved RUQ TTP, (+) trunk edema (+) leg edema PERCY JOYNER Jul 15, 2017 20:26
[2017-07-15] MEDS: Dyna-Hex 2% Top Sol 2oz TOPIC SCH (21:05)
[2017-07-15] MEDS: Piperacillin/Tazobactam 2.25 GM in D5W 55 ML IVPB SCH (22:57)
--- NOTE | 2017-07-15 23:34 | General Progress Note ---
Assessment/Plan Assessment/Plan #. Anemia secondary to chronic disease. --> Hemoglobin levels have been stable. No blood transfusion required at this time. --> S/P abd CAT scan revealing evidence of hepatic cirrhosis. --> Continue to closely monitor and trend cbc daily. --> Anemia workup completed and reviewed. Iron 42, TIBC 180, Ferritin 593, B12 876. --> Ferritin is >500, hgb goal is >7 --> Anemia w/u has been reviewed --> ++Occult blood. Consider GI Services and Recs. #. Thrombocytopenia. --> Hepatitis C ab ++, PCR - --> Monitor platelet level. Transfuse if platelet count <20k --> Levels improving. Continue to trend daily. #. Left leg dvt --> acute onset, will need to review final duplex results --> begin on apixaban daily x 3 months, low h/h will need to monitor closely --> okay to change to different anticoagulant if renal clearance an issue --> If h/h downtrends below 7.5, consider ivc filter placement. --> Hemoglobin currently >7.5 # Hepatosplenomegaly. Ascites. There is also evidence of generalized anasarca, with pleural fluid and generalized subcutaneous edema --> Abd pain improved on pain management --> Refer to surgery note. #. Anemia of kidney disease --> HD as needed per nephrology team --> Monitor closely. --> Does not require iron at this time #. Generalized body ache related to fluid overload. #. End-stage renal disease, on hemodialysis as needed --> On hemodialysis #. Respiratory failure due to CHF and pneumonia. --> Providencia and pseudomonas. --> On vancomycin and ethambutol per ID. --> Chest pain improved at this time, on pain management. #. Shortness of breath. Due to underlying pneumonia. #. Atrial flutter with rapid ventricular response. On metoprolol and diltiazem. #. Conjunctivitis. Begin tobramycin. Subjective Date patient seen: Jul 15, 2017 Constitutional: Denies: no symptoms, chills, diaphoresis, fever, malaise, weakness, other HEENT: Denies: no symptoms, eye pain, blurred vision, tearing, double vision, ear pain, ear discharge, nose pain, nose congestion, throat pain, throat swelling, mouth pain, mouth swelling, other Cardiovascular: Denies: no symptoms, chest pain, edema, irregular heart rate, lightheadedness, palpitations, syncope, other Respiratory: Denies: no symptoms, cough, orthopnea, shortness of breath, SOB with excertion, SOB at rest, sputum, stridor, wheezing, other Gastrointestinal/Abdominal: Denies: no symptoms, abdomen distended, abdominal pain, black stools, tarry stools, blood in stool, constipated, diarrhea, difficulty swallowing, nausea, poor appetite, poor fluid intake, rectal bleeding , vomiting, other Genitourinary: Denies: no symptoms, burning, discharge, frequency, flank pain, hematuria, incontinence, pain, urgency, other Neurologic/Psychiatric: Denies: no symptoms, anxiety, depressed, emotional problems, headache, numbness, paresthesia, pre-existing deficit, seizure, tingling, tremors, weakness, other Hematologic/Lymphatic: Reports: anemia Allergies: Coded Allergies: IODINE AND IODIDE CONTAINING PRODUC (Verified Allergy, Mild, itching and pruritis, 06/25/17) Uncoded Allergies: CONTRAST/DYE (Allergy, Intermediate, PRURITIS AND ITCHING, 06/25/17) Subjective On pain management. On antibiotics. No respiratory distress. Objective Last 24 Hour Vital Signs Date Time Temp Pulse Resp B/P (MAP) Pulse Ox O2 Delivery O2 Flow Rate FiO2 07/15/17 21:04 69 131/86 07/15/17 20:00 97.4 69 22 131/86 93 97.4 07/15/17 19:57 Nasal Cannula 2.0 28 07/15/17 19:56 67 18 Room Air 2.0 28 07/15/17 19:56 91 Nasal Cannula 2.0 28 07/15/17 18:55 72 123/79 07/15/17 18:55 123/79 07/15/17 12:42 72 123/79 07/15/17 12:00 97.0 72 22 127/79 94 Nasal Cannula 2.0 97.0 07/15/17 12:00 68 07/15/17 08:48 117/80 07/15/17 08:35 69 117/80 07/15/17 08:00 97.1 69 21 117/80 99 Nasal Cannula 2.0 97.1 07/15/17 08:00 69 07/15/17 07:16 Room Air 07/15/17 07:15 95 Room Air 21 07/15/17 07:15 71 18 Room Air 21 07/15/17 06:26 75 118/68 07/15/17 04:00 68 07/15/17 04:00 96.7 70 20 132/86 97 Nasal Cannula 2.0 96.7 07/15/17 00:00 79 07/15/17 00:00 99.0 75 20 131/84 97 Nasal Cannula 2.0 99.0 07/14/17 23:36 75 131/84 Intake and Output 07/14/17 07/15/17 19:00 07:00 Intake Total 114 ml Output Total 4000 ml Balance -3886 ml IV Total 114 ml Hemodialysis UF 4000 ml # Voids 4 # Bowel Movements 2 Laboratory Tests 07/15/17 06:30: White Blood Count 5.3, Red Blood Count 3.07L, Hemoglobin 10.2L, Hematocrit 32.4L , Mean Corpuscular Volume 106H, Mean Corpuscular Hemoglobin 33.2H, Mean Corpuscular Hemoglobin Concent 31.5L, Red Cell Distribution Width 16.6H, Platelet Count 85L, Mean Platelet Volume 7.3, Neutrophils (%) (Auto) , Lymphocytes (%) (Auto) , Monocytes (%) (Auto) , Eosinophils (%) (Auto) , Basophils (%) (Auto) , Differential Total Cells Counted 100, Neutrophils % ( Manual) 49, Lymphocytes % (Manual) 24, Monocytes % (Manual) 21H, Eosinophils % ( Manual) 4H, Basophils % (Manual) 2, Band Neutrophils 0, Platelet Estimate DecreasedL, Platelet Morphology Normal, Polychromasia 1+, Hypochromasia 1+, Anisocytosis 1+, Macrocytosis 1+, Sodium Level 136, Potassium Level 5.9H, Chloride Level 97L, Carbon Dioxide Level 27, Anion Gap 12, Blood Urea Nitrogen 74H, Creatinine 13.5H, Estimat Glomerular Filtration Rate 4.6, Glucose Level 91 , Calcium Level 9.3, Total Bilirubin 1.7H, Direct Bilirubin 1.1H, Aspartate Amino Transf (AST/SGOT) 45H, Alanine Aminotransferase (ALT/SGPT) 23, Alkaline Phosphatase 122H, Pro-B-Type Natriuretic Peptide 55387J, Total Protein 7.2, Albumin 2.5L, Globulin 4.7, Albumin/Globulin Ratio 0.5L Height (Feet): 5 Height (Inches): 7.00 Weight (Pounds): 233 General Appearance: confused Respiratory/Chest: decreased breath sounds Irving Parker MD Jul 15, 2017 23:33
[2017-07-16] VITALS (8 sets, daily range): BP systolic 118–142; BP diastolic 72–88
[2017-07-16] MEDS: dilTIAZem HCl 30mg tab ORAL SCH ×5 (00:23→18:48)
[2017-07-16] MEDS: Eliquis 2.5mg tablet ORAL SCH ×2 (08:17→20:55)
[2017-07-16] MEDS: Lisinopril 20mg tab ORAL SCH ×2 (08:18→20:55)
[2017-07-16] MEDS: Docusate 100mg cap ORAL SCH ×4 (08:20→18:48)
[2017-07-16] MEDS: Piperacillin/Tazobactam 2.25 GM in D5W 55 ML IVPB SCH (08:21)
[2017-07-16] MEDS ORDERED: Amikacin Rx to dose MISC PRN (09:00)
[2017-07-16 10:23] LABS: HEMATOCRIT 31.6 % (42.0-52.0); HEMOGLOBIN 9.9 G/DL (14.2-18.0); MEAN CORPUSCULAR VOLUME 104 FL (80-99); PLATELET COUNT 74 K/UL (150-450); RED BLOOD COUNT 3.05 M/UL (4.70-6.10); RED CELL DISTRIBUTION WIDTH 15.9 % (11.6-14.8); WHITE BLOOD COUNT 5.2 K/UL (4.8-10.8)
[2017-07-16 10:45] LABS: ANION GAP 13 mmol/L (5-15); BLOOD UREA NITROGEN 87 mg/dL (7-18); CARBON DIOXIDE 25 MMOL/L (21-32); CHLORIDE 96 MMOL/L (98-107); CREATININE 14.6 MG/DL (0.55-1.30); POTASSIUM 5.3 MMOL/L (3.5-5.1); SODIUM 134 MMOL/L (136-145)
--- NOTE | 2017-07-16 10:51 | Internal Med Progress Note ---
Subjective Date of Service: Jul 16, 2017 Physician Name Zoey Pires Attending Physician Chaitanya Weinstein MD Current Medications Medications (Trade) Dose Ordered Sig/Jose Route PRN Reason Start Time Stop Time Status Last Admin Dose Admin Alprazolam (Xanax) 2 mg DAILYPRN PRN ORAL For Anxiety 07/16/17 15:15 07/23/17 15:14 Amikacin Protocol (Amikacin pharmacy to dose) 1 ea DAILY PRN MISC Per rx protocol 07/16/17 09:00 08/03/17 15:14 Amikacin Sulfate 1000 mg/Dextrose 114 ml @ 228 mls/hr MON-WED-FRI IV 07/16/17 21:00 07/21/17 23:59 Apixaban (Eliquis) 2.5 mg Q12HR ORAL 07/16/17 09:00 08/15/17 08:59 07/16/17 08:17 Chlorhexidine Gluconate (Mireille-Hex 2%) 1 applic DAILY@1999 TOPIC 07/15/17 20:00 08/02/17 19:59 07/15/17 21:05 Clonidine HCl (Catapres Tab) 0.1 mg Q4H PRN ORAL bp over 160 syst 07/15/17 19:30 07/19/17 11:29 Dextrose (Dextrose 50%) 25 ml STAT PRN IV HYPOGLYCEMIA 07/16/17 08:30 08/08/17 08:29 Diltiazem HCl (Cardizem) 30 mg EVERY 6 HOURS ORAL 07/16/17 00:00 08/09/17 19:29 07/16/17 05:36 Docusate Sodium (Colace) 100 mg THREE TIMES A DAY ORAL 07/16/17 09:00 07/18/17 13:00 07/16/17 08:20 Ethambutol HCl (Myambutol) 1,000 mg 3XW ORAL 07/16/17 09:00 07/21/17 23:59 07/16/17 08:16 Hydromorphone HCl (Dilaudid) 2 mg Q4H PRN IVP Severe Pain (Pain Scale 7-10) 07/15/17 19:29 07/16/17 19:28 07/16/17 08:15 Levofloxacin (Levaquin) 750 mg EVERY OTHER DAY@1999 ORAL 07/15/17 20:00 07/21/17 23:59 07/15/17 21:04 Lisinopril (Prinivil) 20 mg Q12HR ORAL 07/16/17 09:00 08/15/17 08:59 07/16/17 08:18 Metoprolol Tartrate (Lopressor) 100 mg Q12HR ORAL 07/15/17 21:00 08/10/17 20:59 07/15/17 21:04 Nitroglycerin (Ntg) 0.4 mg Q5M PRN SL Prn Chest Pain 07/15/17 19:20 07/19/17 11:29 Piperacillin Sod/ Tazobactam Sod 2.25 gm/Dextrose 55 ml @ 110 mls/hr Q8H IVPB 07/15/17 23:30 07/22/17 23:59 07/16/17 08:21 Promethazine HCl/ Codeine (Phenergan with Codeine) 5 ml Q4H PRN ORAL For Cough 07/15/17 19:32 07/22/17 19:31 Sevelamer Carbonate (Renvela) 2,400 mg THREE TIMES A DAY ORAL 07/16/17 09:00 07/16/17 18:44 07/16/17 08:16 Allergies: Coded Allergies: IODINE AND IODIDE CONTAINING PRODUC (Verified Allergy, Mild, itching and pruritis, 06/25/17) Uncoded Allergies: CONTRAST/DYE (Allergy, Intermediate, PRURITIS AND ITCHING, 06/25/17) ROS Limited/Unobtainable: No Constitutional: Reports: no symptoms HEENT: Reports: no symptoms Cardiovascular: Reports: no symptoms Respiratory: Reports: no symptoms Gastrointestinal/Abdominal: Reports: no symptoms Genitourinary: Reports: no symptoms Neurologic/Psychiatric: Reports: no symptoms Subjective 57 YO M admitted with chest pain and shortness of breath. Now pneumonia and candelaria heart failure. Back on nasal canula. Cover for Int Misbah-Dr Weinstein. Now atrial flutter Objective Last Vital Signs Date Time Temp Pulse Resp B/P (MAP) Pulse Ox O2 Delivery O2 Flow Rate FiO2 07/16/17 09:00 62 119/72 07/16/17 08:45 97.6 07/16/17 08:00 20 95 Nasal Cannula 2.0 07/15/17 19:57 28 Laboratory Tests Test 07/16/17 09:55 White Blood Count 5.2 K/UL (4.8-10.8) Red Blood Count 3.05 M/UL (4.70-6.10) L Hemoglobin 9.9 G/DL (14.2-18.0) L Hematocrit 31.6 % (42.0-52.0) L Mean Corpuscular Volume 104 FL (80-99) H Mean Corpuscular Hemoglobin 32.4 PG (27.0-31.0) H Mean Corpuscular Hemoglobin Concent 31.2 G/DL (32.0-36.0) L Red Cell Distribution Width 15.9 % (11.6-14.8) H Platelet Count 74 K/UL (150-450) L Mean Platelet Volume 7.0 FL (6.5-10.1) Neutrophils (%) (Auto) % (45.0-75.0) Lymphocytes (%) (Auto) % (20.0-45.0) Monocytes (%) (Auto) % (1.0-10.0) Eosinophils (%) (Auto) % (0.0-3.0) Basophils (%) (Auto) % (0.0-2.0) Neutrophils % (Manual) Pending Lymphocytes % (Manual) Pending Platelet Estimate Pending Platelet Morphology Pending Sodium Level 134 MMOL/L (136-145) L Potassium Level 5.3 MMOL/L (3.5-5.1) H Chloride Level 96 MMOL/L (98-107) L Carbon Dioxide Level 25 MMOL/L (21-32) Anion Gap 13 mmol/L (5-15) Blood Urea Nitrogen 87 mg/dL (7-18) H Creatinine 14.6 MG/DL (0.55-1.30) H Estimat Glomerular Filtration Rate 4.2 mL/min (>60) Glucose Level 132 MG/DL (74-106) H Calcium Level 9.0 MG/DL (8.5-10.1) Intake and Output 07/15/17 07/16/17 19:00 07:00 Intake Total 480 ml 110 ml Balance 480 ml 110 ml Intake Oral 480 ml IV Total 110 ml # Voids 4 # Bowel Movements 2 3 Objective General Appearance: WD/WN, alert, moderate distress EENT: PERRL/EOMI, normal ENT inspection Neck: non-tender, normal alignment, supple, normal inspection Cardiovascular: Tachycardia; normal peripheral pulses, normal rate, regular rhythm, no gallop/murmur, no JVD Respiratory/Chest: Nasal canula; respiratory distress, crackles/rales, rhonchi - bilaterally, expiratory wheezing Abdomen: normal bowel sounds, non tender, soft, no organomegaly, no mass Extremities: normal range of motion Neurologic: crossing flagman 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, no motor/sensory deficits Skin: normal pigmentation, warm/dry Assessment/Plan Problem List: (1) Atrial flutter with rapid ventricular response Assessment & Plan: D/C coreg; start metoprolol and IV diltiazem per cardiology consult. (2) Respiratory failure Assessment & Plan: CHF and Pneumonia. Currently on nasal canula. See pulmonay note. (3) Pleuritic chest pain (4) Hemoptysis Assessment & Plan: Due to pneumonia (5) Pneumonia Assessment & Plan: Providencia and pseudamonas. RUL and cavitary. Concerning for TB. Await AFB cultures-see ID consult. Continue vanco and ethambutol per ID. Continue rocephin, micafungin, flagyl, amikacin, levaquin, and rifampin (6) Shortness of breath (7) ESRD (end stage renal disease) on dialysis Assessment & Plan: See nephrology note. Last Hemodialysis 07/14/17 per nephrology (8) Hyperkalemia Assessment & Plan: Due to renal failure. Hemodialysis 06/13/17 per nephrology (9) COPD (chronic obstructive pulmonary disease) (10) HTN (hypertension) Assessment & Plan: Continue coreg and lisinopril. (11) CHF (congestive heart failure) (12) Elevated troponin Assessment & Plan: ?due to renal failure? See cardiology note. (13) Intractable abdominal pain Assessment & Plan: See surgery note. Await CT abdomen (14) Conjunctivitis Assessment & Plan: start tobramycin (15) Diarrhea Assessment & Plan: C. Diff Status: not improved Assessment/Plan Discharge planning - coordination with [facility] pending ZOEY PIRES Jul 16, 2017 10:51
--- NOTE | 2017-07-16 11:58 | Nephrology Progress Note ---
Assessment/Plan Problem List: (1) ESRD (end stage renal disease) on dialysis (2) Shortness of breath (3) Anemia Assessment Anemia ESRD , missed HD on admission , admitted with high K and pulmonary edema Acute respiratory distress due to volume overload elevated troponin r/o ACS h/o COPD ? exacerbation HTN urgency Cardiomyopathy L AICD anemia of chronic kidney disease Hx of CVA Plan Plan: HD next 07/16 today- will care for high K with HD Max UF Transfused Phos binders BP meds adjustment Optimize cardiac status per orders Subjective ROS Limited/Unobtainable: No Constitutional: Reports: malaise Objective Objective Last 24 Hour Vital Signs Date Time Temp Pulse Resp B/P (MAP) Pulse Ox O2 Delivery O2 Flow Rate FiO2 07/16/17 09:00 62 119/72 07/16/17 08:45 97.6 07/16/17 08:20 68 18 Nasal Cannula 2.0 28 07/16/17 08:20 93 Nasal Cannula 2.0 28 07/16/17 08:20 Nasal Cannula 2.0 28 07/16/17 08:18 119/72 07/16/17 08:15 97.6 07/16/17 08:00 98.6 62 20 119/72 95 Nasal Cannula 2.0 98.6 07/16/17 05:36 72 125/75 07/16/17 04:00 97.6 72 22 125/75 98 97.6 07/16/17 00:23 70 130/88 07/16/17 00:00 98.4 70 22 130/88 98 98.4 07/15/17 21:04 69 131/86 07/15/17 20:00 97.4 69 22 131/86 97 97.4 07/15/17 19:57 Nasal Cannula 2.0 28 07/15/17 19:56 67 18 Room Air 2.0 28 07/15/17 19:56 91 Nasal Cannula 2.0 28 07/15/17 18:55 72 123/79 07/15/17 18:55 123/79 07/15/17 12:42 72 123/79 07/15/17 12:00 97.0 72 22 127/79 94 Nasal Cannula 2.0 97.0 07/15/17 12:00 68 Intake and Output 07/15/17 07/16/17 19:00 07:00 Intake Total 480 ml 110 ml Balance 480 ml 110 ml Intake Oral 480 ml IV Total 110 ml # Voids 4 # Bowel Movements 2 3 Laboratory Tests 07/16/17 09:55: White Blood Count 5.2, Red Blood Count 3.05L, Hemoglobin 9.9L, Hematocrit 31.6L , Mean Corpuscular Volume 104H, Mean Corpuscular Hemoglobin 32.4H, Mean Corpuscular Hemoglobin Concent 31.2L, Red Cell Distribution Width 15.9H, Platelet Count 74L, Mean Platelet Volume 7.0, Neutrophils (%) (Auto) , Lymphocytes (%) (Auto) , Monocytes (%) (Auto) , Eosinophils (%) (Auto) , Basophils (%) (Auto) , Differential Total Cells Counted 100, Neutrophils % ( Manual) 57, Lymphocytes % (Manual) 21, Monocytes % (Manual) 13H, Eosinophils % ( Manual) 9H, Basophils % (Manual) 0, Band Neutrophils 0, Platelet Estimate DecreasedL, Platelet Morphology Normal, Hypochromasia 1+, Anisocytosis 1+, Macrocytosis 1+, Sodium Level 134L, Potassium Level 5.3H, Chloride Level 96L, Carbon Dioxide Level 25, Anion Gap 13, Blood Urea Nitrogen 87H, Creatinine 14.6H , Estimat Glomerular Filtration Rate 4.2, Glucose Level 132H, Calcium Level 9.0 Height (Feet): 5 Height (Inches): 7.00 Weight (Pounds): 230 General Appearance: no apparent distress Cardiovascular: normal rate Respiratory/Chest: decreased breath sounds Abdomen: soft Objective no change LIAM MONTELONGO Jul 16, 2017 11:58
[2017-07-16] MEDS ORDERED: Tubing IV Secondary IV ONE (14:32)
[2017-07-16] MEDS: ALPRAZolam 0.5mg tab ORAL PRN (14:43)
--- NOTE | 2017-07-16 14:52 | Pulmonology Progress Note ---
Assessment/Plan Problems: (1) Respiratory failure (2) Pneumonia (3) Rapid atrial fibrillation (4) HTN (hypertension) (5) ESRD (end stage renal disease) on dialysis (6) Anemia Assessment/Plan CXR 07/15: RUL cavitary lesion is much better continue telemetry, cardizem IV prn c/o generalized pain slowly improving onNC HD by [employer] prbc prn on anti TB meds wtih IV Amikacin, ethambutol cxr in am BAL showing vre and Abby ct 07/15 Impression: Since prior study 06/26/2017, interim decrease in size of previously demonstrated posterior inferior right upper lobe cavitary lesion.. Features as described, including now evident communication with a segmental bronchus. Given described imaging features on previous exams as well as interim shrinkage, this most likely represents an inflammatory/infectious lesion. Note that previously demonstrated air-fluid level is no longer present Subjective ROS Limited/Unobtainable: No Constitutional: Reports: no symptoms HEENT: Repors: no symptoms Respiratory: Reports: no symptoms Allergies: Coded Allergies: IODINE AND IODIDE CONTAINING PRODUC (Verified Allergy, Mild, itching and pruritis, 06/25/17) Uncoded Allergies: CONTRAST/DYE (Allergy, Intermediate, PRURITIS AND ITCHING, 06/25/17) Objective Last 24 Hour Vital Signs Date Time Temp Pulse Resp B/P (MAP) Pulse Ox O2 Delivery O2 Flow Rate FiO2 07/16/17 12:43 97.6 07/16/17 12:13 97.6 07/16/17 12:13 62 119/72 07/16/17 12:00 97.9 64 24 118/81 97 Nasal Cannula 2.0 97.9 07/16/17 09:00 62 119/72 07/16/17 08:20 68 18 Nasal Cannula 2.0 28 07/16/17 08:20 93 Nasal Cannula 2.0 28 07/16/17 08:20 Nasal Cannula 2.0 28 07/16/17 08:18 119/72 07/16/17 08:15 97.6 07/16/17 08:00 98.6 62 20 119/72 95 Nasal Cannula 2.0 98.6 07/16/17 05:36 72 125/75 07/16/17 04:00 97.6 72 22 125/75 98 97.6 07/16/17 00:23 70 130/88 07/16/17 00:00 98.4 70 22 130/88 98 98.4 07/15/17 21:04 69 131/86 07/15/17 20:00 97.4 69 22 131/86 97 97.4 07/15/17 19:57 Nasal Cannula 2.0 28 07/15/17 19:56 67 18 Room Air 2.0 28 07/15/17 19:56 91 Nasal Cannula 2.0 28 07/15/17 18:55 72 123/79 07/15/17 18:55 123/79 Intake and Output 07/15/17 07/16/17 19:00 07:00 Intake Total 480 ml 110 ml Balance 480 ml 110 ml Intake Oral 480 ml IV Total 110 ml # Voids 4 # Bowel Movements 2 3 Objective General Appearance: WD/WN HEENT: normocephalic, atraumatic, anicteric Respiratory/Chest: loud rhonchi Cardiovascular: normal peripheral pulses, normal rate, regular rhythm Abdomen: normal bowel sounds, soft, non tender, no organomegaly Genitourinary: normal external genitalia Extremities: no cyanosis Skin: no rash, no lesions Neurologic/Psychiatric: 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, no motor/sensory deficits Lymphatic: no neck adenopathy, no groin adenopathy Laboratory Tests 07/16/17 09:55: White Blood Count 5.2, Red Blood Count 3.05L, Hemoglobin 9.9L, Hematocrit 31.6L , Mean Corpuscular Volume 104H, Mean Corpuscular Hemoglobin 32.4H, Mean Corpuscular Hemoglobin Concent 31.2L, Red Cell Distribution Width 15.9H, Platelet Count 74L, Mean Platelet Volume 7.0, Neutrophils (%) (Auto) , Lymphocytes (%) (Auto) , Monocytes (%) (Auto) , Eosinophils (%) (Auto) , Basophils (%) (Auto) , Differential Total Cells Counted 100, Neutrophils % ( Manual) 57, Lymphocytes % (Manual) 21, Monocytes % (Manual) 13H, Eosinophils % ( Manual) 9H, Basophils % (Manual) 0, Band Neutrophils 0, Platelet Estimate DecreasedL, Platelet Morphology Normal, Hypochromasia 1+, Anisocytosis 1+, Macrocytosis 1+, Sodium Level 134L, Potassium Level 5.3H, Chloride Level 96L, Carbon Dioxide Level 25, Anion Gap 13, Blood Urea Nitrogen 87H, Creatinine 14.6H , Estimat Glomerular Filtration Rate 4.2, Glucose Level 132H, Calcium Level 9.0 Current Medications Medications (Trade) Dose Ordered Sig/Jose Route PRN Reason Start Time Stop Time Status Last Admin Dose Admin Alprazolam (Xanax) 2 mg DAILYPRN PRN ORAL For Anxiety 07/16/17 15:15 07/23/17 15:14 07/16/17 14:43 Amikacin Protocol (Amikacin pharmacy to dose) 1 ea DAILY PRN MISC Per rx protocol 07/16/17 09:00 08/03/17 15:14 Amikacin Sulfate 1000 mg/Dextrose 114 ml @ 228 mls/hr FRI-FRI-FRI IV 07/16/17 21:00 07/21/17 23:59 Apixaban (Eliquis) 2.5 mg Q12HR ORAL 07/16/17 09:00 08/15/17 08:59 07/16/17 08:17 Chlorhexidine Gluconate (Mireille-Hex 2%) 1 applic DAILY@2000 TOPIC 07/15/17 20:00 08/02/17 19:59 07/15/17 21:05 Clonidine HCl (Catapres Tab) 0.1 mg Q4H PRN ORAL bp over 160 syst 07/15/17 19:30 07/19/17 11:29 Dextrose (Dextrose 50%) 25 ml STAT PRN IV HYPOGLYCEMIA 07/16/17 08:30 08/08/17 08:29 Diltiazem HCl (Cardizem) 30 mg EVERY 6 HOURS ORAL 07/16/17 00:00 08/09/17 19:29 07/16/17 12:13 Docusate Sodium (Colace) 100 mg THREE TIMES A DAY ORAL 07/16/17 09:00 07/18/17 13:00 07/16/17 12:13 Ethambutol HCl (Myambutol) 1,000 mg 3XW ORAL 07/16/17 09:00 07/21/17 23:59 07/16/17 08:16 Hydromorphone HCl (Dilaudid) 2 mg Q4H PRN IVP Severe Pain (Pain Scale 7-10) 07/15/17 19:29 07/16/17 19:28 07/16/17 12:13 Levofloxacin (Levaquin) 750 mg EVERY OTHER DAY@2000 ORAL 07/15/17 20:00 07/21/17 23:59 07/15/17 21:04 Lisinopril (Prinivil) 20 mg Q12HR ORAL 07/16/17 09:00 08/15/17 08:59 07/16/17 08:18 Metoprolol Tartrate (Lopressor) 100 mg Q12HR ORAL 07/15/17 21:00 08/10/17 20:59 07/15/17 21:04 Nitroglycerin (Ntg) 0.4 mg Q5M PRN SL Prn Chest Pain 07/15/17 19:20 07/19/17 11:29 Piperacillin Sod/ Tazobactam Sod 2.25 gm/Dextrose 55 ml @ 110 mls/hr Q8H IVPB 07/15/17 23:30 07/22/17 23:59 07/16/17 08:21 Promethazine HCl/ Codeine (Phenergan with Codeine) 5 ml Q4H PRN ORAL For Cough 07/15/17 19:32 07/22/17 19:31 Sevelamer Carbonate (Renvela) 2,400 mg THREE TIMES A DAY ORAL 07/16/17 09:00 07/16/17 18:44 07/16/17 12:14 Christine Morgan MD Jul 16, 2017 14:52
--- NOTE | 2017-07-16 15:49 | Infectious Diseases Prog Note ---
Assessment/Plan Assessment/Plan Cavitary PNA. SCx: Neg ( m/l necrotizing Pneum, vs anaerobic abscess, doubt TB or fungal ) ; improving - 07/09 SP BAL Cx( Abby and MOJGAN : Colonizers ) , Path : Neg for fungus and Malignancy - -CT 07/15 : he overall lesion appears smaller, measuring 6.3 cm AP by 3.6 cm transverse by 2.3 cm craniocaudad currently -CT chest 06/25: Since the prior study of 06/15/2017, and. From further reduction in size of previously demonstrated thick walled right upper lobe cavitary mass. This was previously thought to most likely represent a cavitary inflammatory mass, and the interim reduction in size certainly supports that. Much less likely a cavitary neoplasm, but follow-up to resolution is recommended. Markedly improved parenchymal disease bilaterally, since the previous study. Nonetheless , extensive atelectasis and groundglass consolidation persists. Persistent small right pleural effusion, smaller than on the prior study. Resolved left pleural effusion 6 mm nodular opacity in the right upper lobe, not evident previously but likely obscured by surrounding consolidated lung parenchyma. This should be followed up in 6 months to one year depending on results of interim follow-up exams T-SPOT :Neg AFB x 3 : Neg MTB PCR x2 : neg cryptococcus Ag, Histoplams mycelial Ab , Blastomyces ab : neg ; histoplasma yeast ab (not able to be done due to anticomplementary activity) -Cocci, Asp ag p -Fungitell + 144 (?aspergillosis vs m/l false positive) CT chest 06/15: Slightly smaller (6 cm diameter ) but mostly unchanged cavitary lesion in the right lung, previously thought to represent a cavitating inflammatory process. Lung abscess is certainly a possibility. Fairly extensive bilateral pulmonary parenchymal consolidation, slightly increased from previous exam of 06/05/2017. Likely a combination of pulmonary edema and pneumonia. Small right and trace left pleural effusion, new/increased from the previous study. CT 06/05: 7.8 x 5.3 x 6.6 cm dense opacity in the posterior inferior right upper lobe with a central cavitation. CRP 14 Influenza negative Coccidioidal ,Galactomannan : NEG ( PER LAB ) Transaminitis , improving after stopping rifampin /2 Hep C cirrhosis- no active Hep C as VL not detected -CT abd/p: Evidence of hepatic cirrhosis. Hepatosplenomegaly. evidence of generalized anasarca, with pleural fluid and generalized subcutaneous edema. Cholelithiasis, also previously reported. Possible diverticulosis. No evidence of diverticulitis US Abd : Cholelithiasis. There is gallbladder wall thickening, likely related to hemodynamic abnormalities Splenomegaly. Evidence of hepatic cirrhosis HIV : NEG Hep Panel B neg , C Ab : +ve , VL not detected leukopenia and TCP 2/2 splenomegaly Seizure disorder History of CVA History of pacemaker placement Hyperlipidemia Hypertension COPD/asthma End-stage renal disease, on hemodialysis Diabetes Anxiety Anemia Echo, ejection fraction 45% to 50%. PLAN: - DC Zoysn d# 9 ( pt SOB and CXR worsen , better coverage of anaerobes, PSA and Providencia ); abx d# 42 / 42, switch to oral Clinda till resolution of of abscess Continue empiric Ethambutol and Levaquin, Amikacin ( empiric TB AB Rx d# 30 as per TB control request, this was DW TB control , still insists to cont w TB regiment till final cultures are back ) 07/07 SP Dc Flagyl 07/06 SP Voriconazole ( low antonio for fungal infection , and in the setting of cirrhosis ) 07/05 SP Micafungin abx d#20 , Rifampin 600mg qd #10 07/01 SP Ceftriaxone #10 06/28 SP Amikacin #15 06/25 SP PO Voriconazole #3 06/20 SP Liposomal Ampho #8 06/17 SP IV Vancomycin #14, Meropenem #5 06/13 SP Zosyn d# 10 3 SP Zithromax D# 6 f/u sputum culture (fungal, and AFB x3). BAL fungal and AFB Cx : P - CMP - CT chest Subjective Allergies: Coded Allergies: IODINE AND IODIDE CONTAINING PRODUC (Verified Allergy, Mild, itching and pruritis, 06/25/17) Uncoded Allergies: CONTRAST/DYE (Allergy, Intermediate, PRURITIS AND ITCHING, 06/25/17) Subjective comfortable Objective Vital Signs Last 24 Hour Vital Signs Date Time Temp Pulse Resp B/P (MAP) Pulse Ox O2 Delivery O2 Flow Rate FiO2 07/16/17 12:43 97.6 07/16/17 12:13 97.6 07/16/17 12:13 62 119/72 07/16/17 12:00 97.9 64 24 118/81 97 Nasal Cannula 2.0 97.9 07/16/17 09:00 62 119/72 07/16/17 08:20 68 18 Nasal Cannula 2.0 28 07/16/17 08:20 93 Nasal Cannula 2.0 28 07/16/17 08:20 Nasal Cannula 2.0 28 07/16/17 08:18 119/72 07/16/17 08:15 97.6 07/16/17 08:00 98.6 62 20 119/72 95 Nasal Cannula 2.0 98.6 07/16/17 05:36 72 125/75 07/16/17 04:00 97.6 72 22 125/75 98 97.6 07/16/17 00:23 70 130/88 07/16/17 00:00 98.4 70 22 130/88 98 98.4 07/15/17 21:04 69 131/86 07/15/17 20:00 97.4 69 22 131/86 97 97.4 07/15/17 19:57 Nasal Cannula 2.0 28 07/15/17 19:56 67 18 Room Air 2.0 28 07/15/17 19:56 91 Nasal Cannula 2.0 28 07/15/17 18:55 72 123/79 07/15/17 18:55 123/79 Height (Feet): 5 Height (Inches): 7.00 Weight (Pounds): 230 HEENT: anicteric Respiratory/Chest: no accessory muscle use Cardiovascular: regular rhythm Abdomen: no organomegaly Laboratory Tests Test 07/16/17 09:55 White Blood Count 5.2 K/UL (4.8-10.8) Red Blood Count 3.05 M/UL (4.70-6.10) L Hemoglobin 9.9 G/DL (14.2-18.0) L Hematocrit 31.6 % (42.0-52.0) L Mean Corpuscular Volume 104 FL (80-99) H Mean Corpuscular Hemoglobin 32.4 PG (27.0-31.0) H Mean Corpuscular Hemoglobin Concent 31.2 G/DL (32.0-36.0) L Red Cell Distribution Width 15.9 % (11.6-14.8) H Platelet Count 74 K/UL (150-450) L Mean Platelet Volume 7.0 FL (6.5-10.1) Neutrophils (%) (Auto) % (45.0-75.0) Lymphocytes (%) (Auto) % (20.0-45.0) Monocytes (%) (Auto) % (1.0-10.0) Eosinophils (%) (Auto) % (0.0-3.0) Basophils (%) (Auto) % (0.0-2.0) Differential Total Cells Counted 100 Neutrophils % (Manual) 57 % (45-75) Lymphocytes % (Manual) 21 % (20-45) Monocytes % (Manual) 13 % (1-10) H Eosinophils % (Manual) 9 % (0-3) H Basophils % (Manual) 0 % (0-2) Band Neutrophils 0 % (0-8) Platelet Estimate Decreased L Platelet Morphology Normal Hypochromasia 1+ Anisocytosis 1+ Macrocytosis 1+ Sodium Level 134 MMOL/L (136-145) L Potassium Level 5.3 MMOL/L (3.5-5.1) H Chloride Level 96 MMOL/L (98-107) L Carbon Dioxide Level 25 MMOL/L (21-32) Anion Gap 13 mmol/L (5-15) Blood Urea Nitrogen 87 mg/dL (7-18) H Creatinine 14.6 MG/DL (0.55-1.30) H Estimat Glomerular Filtration Rate 4.2 mL/min (>60) Glucose Level 132 MG/DL (74-106) H Calcium Level 9.0 MG/DL (8.5-10.1) Current Medications Medications (Trade) Dose Ordered Sig/Jose Route PRN Reason Start Time Stop Time Status Last Admin Dose Admin Alprazolam (Xanax) 2 mg DAILYPRN PRN ORAL For Anxiety 07/16/17 15:15 07/23/17 15:14 07/16/17 14:43 Amikacin Protocol (Amikacin pharmacy to dose) 1 ea DAILY PRN MISC Per rx protocol 07/16/17 09:00 08/03/17 15:14 Amikacin Sulfate 1000 mg/Dextrose 114 ml @ 228 mls/hr MON-WED-FRI IV 07/16/17 21:00 07/21/17 23:59 Apixaban (Eliquis) 2.5 mg Q12HR ORAL 07/16/17 09:00 08/15/17 08:59 07/16/17 08:17 Chlorhexidine Gluconate (Mireille-Hex 2%) 1 applic DAILY@1999 TOPIC 07/15/17 20:00 08/02/17 19:59 07/15/17 21:05 Clonidine HCl (Catapres Tab) 0.1 mg Q4H PRN ORAL bp over 160 syst 07/15/17 19:30 07/19/17 11:29 Dextrose (Dextrose 50%) 25 ml STAT PRN IV HYPOGLYCEMIA 07/16/17 08:30 08/08/17 08:29 Diltiazem HCl (Cardizem) 30 mg EVERY 6 HOURS ORAL 07/16/17 00:00 08/09/17 19:29 07/16/17 12:13 Docusate Sodium (Colace) 100 mg THREE TIMES A DAY ORAL 07/16/17 09:00 07/18/17 13:00 07/16/17 12:13 Ethambutol HCl (Myambutol) 1,000 mg 3XW ORAL 07/16/17 09:00 07/21/17 23:59 07/16/17 08:16 Hydromorphone HCl (Dilaudid) 2 mg Q4H PRN IVP Severe Pain (Pain Scale 7-10) 07/15/17 19:29 07/16/17 19:28 07/16/17 12:13 Levofloxacin (Levaquin) 750 mg EVERY OTHER DAY@1999 ORAL 07/15/17 20:00 07/21/17 23:59 07/15/17 21:04 Lisinopril (Prinivil) 20 mg Q12HR ORAL 07/16/17 09:00 08/15/17 08:59 07/16/17 08:18 Metoprolol Tartrate (Lopressor) 100 mg Q12HR ORAL 07/15/17 21:00 08/10/17 20:59 07/15/17 21:04 Nitroglycerin (Ntg) 0.4 mg Q5M PRN SL Prn Chest Pain 07/15/17 19:20 07/19/17 11:29 Piperacillin Sod/ Tazobactam Sod 2.25 gm/Dextrose 55 ml @ 110 mls/hr Q8H IVPB 07/15/17 23:30 07/22/17 23:59 07/16/17 08:21 Promethazine HCl/ Codeine (Phenergan with Codeine) 5 ml Q4H PRN ORAL For Cough 07/15/17 19:32 07/22/17 19:31 Sevelamer Carbonate (Renvela) 2,400 mg THREE TIMES A DAY ORAL 07/16/17 09:00 07/16/17 18:44 07/16/17 12:14 Cristofer Antunez MD Jul 16, 2017 15:49
[2017-07-16] MEDS: Clindamycin 150mg cap ORAL SCH (18:47)
[2017-07-16] MEDS: Dyna-Hex 2% Top Sol 2oz TOPIC SCH (20:00)
--- NOTE | 2017-07-16 20:08 | Cardiology Progress Note ---
Assessment/Plan Assessment/Plan pleuritic chest pain neg recent sig perfusion abn; systolic dysfunction on mild degree involving the septum cavitating lung lesion improved on recent ct esrd htn anemia icd hx biotonix , interrogated 07/09/19 edema afib / atrial tachy thrombocytopenia iodine allergy remains in sinus plt low is on eliquis for stroke prevention venous duplex neg echo reviewed swma in septum (possible) as tech difficult study ef 45% afb smear neg ct noted icd interrogated yest no shock fucntion fine cxr much improved on higher volume of UF with dialysis still needs more fluid removed Subjective Cardiovascular: Denies: chest pain, lightheadedness, palpitations Respiratory: Reports: shortness of breath Gastrointestinal/Abdominal: Denies: abdominal pain Genitourinary: Denies: burning Objective Last 24 Hour Vital Signs Date Time Temp Pulse Resp B/P (MAP) Pulse Ox O2 Delivery O2 Flow Rate FiO2 07/16/17 19:38 95 Nasal Cannula 3.0 32 07/16/17 19:38 Nasal Cannula 3.0 32 07/16/17 19:38 73 18 Nasal Cannula 3.0 32 07/16/17 18:48 71 142/88 07/16/17 18:43 Nasal Cannula 3.0 07/16/17 18:42 98.0 71 20 142/88 Nasal Cannula 3.0 98.0 07/16/17 17:37 98.0 07/16/17 17:07 98.0 07/16/17 16:00 98.0 82 17 125/74 92 Nasal Cannula 2.0 98.0 07/16/17 15:00 97.6 66 20 123/74 Nasal Cannula 2.0 97.6 07/16/17 15:00 Nasal Cannula 3.0 07/16/17 12:13 97.6 07/16/17 12:13 62 119/72 07/16/17 12:00 97.9 64 24 118/81 97 Nasal Cannula 2.0 97.9 07/16/17 09:00 62 119/72 07/16/17 08:20 68 18 Nasal Cannula 2.0 28 07/16/17 08:20 93 Nasal Cannula 2.0 28 07/16/17 08:20 Nasal Cannula 2.0 28 07/16/17 08:18 119/72 07/16/17 08:15 97.6 07/16/17 08:00 98.6 62 20 119/72 95 Nasal Cannula 2.0 98.6 07/16/17 05:36 72 125/75 07/16/17 04:00 97.6 72 22 125/75 98 97.6 07/16/17 00:23 70 130/88 07/16/17 00:00 98.4 70 22 130/88 98 98.4 07/15/17 21:04 69 131/86 General Appearance: no apparent distress Cardiovascular: normal rate, regular rhythm Respiratory/Chest: lungs clear Abdomen: normal bowel sounds, non tender, soft Extremities: severe edema Intake and Output 07/15/17 07/16/17 19:00 07:00 Intake Total 480 ml 110 ml Balance 480 ml 110 ml Intake Oral 480 ml IV Total 110 ml # Voids 4 # Bowel Movements 2 3 Laboratory Tests Test 07/16/17 09:55 White Blood Count 5.2 K/UL (4.8-10.8) Red Blood Count 3.05 M/UL (4.70-6.10) L Hemoglobin 9.9 G/DL (14.2-18.0) L Hematocrit 31.6 % (42.0-52.0) L Mean Corpuscular Volume 104 FL (80-99) H Mean Corpuscular Hemoglobin 32.4 PG (27.0-31.0) H Mean Corpuscular Hemoglobin Concent 31.2 G/DL (32.0-36.0) L Red Cell Distribution Width 15.9 % (11.6-14.8) H Platelet Count 74 K/UL (150-450) L Mean Platelet Volume 7.0 FL (6.5-10.1) Neutrophils (%) (Auto) % (45.0-75.0) Lymphocytes (%) (Auto) % (20.0-45.0) Monocytes (%) (Auto) % (1.0-10.0) Eosinophils (%) (Auto) % (0.0-3.0) Basophils (%) (Auto) % (0.0-2.0) Differential Total Cells Counted 100 Neutrophils % (Manual) 57 % (45-75) Lymphocytes % (Manual) 21 % (20-45) Monocytes % (Manual) 13 % (1-10) H Eosinophils % (Manual) 9 % (0-3) H Basophils % (Manual) 0 % (0-2) Band Neutrophils 0 % (0-8) Platelet Estimate Decreased L Platelet Morphology Normal Hypochromasia 1+ Anisocytosis 1+ Macrocytosis 1+ Sodium Level 134 MMOL/L (136-145) L Potassium Level 5.3 MMOL/L (3.5-5.1) H Chloride Level 96 MMOL/L (98-107) L Carbon Dioxide Level 25 MMOL/L (21-32) Anion Gap 13 mmol/L (5-15) Blood Urea Nitrogen 87 mg/dL (7-18) H Creatinine 14.6 MG/DL (0.55-1.30) H Estimat Glomerular Filtration Rate 4.2 mL/min (>60) Glucose Level 132 MG/DL (74-106) H Calcium Level 9.0 MG/DL (8.5-10.1) PRECIOUS GARCIA Jul 16, 2017 20:08
[2017-07-16] MEDS ORDERED: Amikacin 1,000 MG in D5W 110 ML IV SCH (21:00)
--- NOTE | 2017-07-16 21:45 | General Progress Note ---
Assessment/Plan Assessment/Plan Assessment - gallstones - abnormal LFT - suspect due to cirrhosis +/- meds - Periodic N/V with abnormal GB ultrasound, ? possibly biliary colic - patient declined HIDA - Anemia, multifactorial - OB (+) Stool - patient declined EGD/Colon - ESRD/HD - DM - HTN - COPD - Cavitary lung disease - Thrombocytopenia - cirrhotic appearing liver on CT - Hepatitis C Ab (+)/ PCR (-) - Poor prognosis Recommendations - PO as tolerated - follow symptoms and exam - monitor LFT - avoid hepatotoxic meds - abx per ID - transfuse PRN - Acid blockade Subjective Allergies: Coded Allergies: IODINE AND IODIDE CONTAINING PRODUC (Verified Allergy, Mild, itching and pruritis, 06/25/17) Uncoded Allergies: CONTRAST/DYE (Allergy, Intermediate, PRURITIS AND ITCHING, 06/25/17) Subjective above noted tolerating PO no vomiting Objective Last 24 Hour Vital Signs Date Time Temp Pulse Resp B/P (MAP) Pulse Ox O2 Delivery O2 Flow Rate FiO2 07/16/17 20:55 73 126/73 07/16/17 20:55 126/73 07/16/17 20:00 98.2 73 20 126/73 95 Nasal Cannula 98.2 07/16/17 19:38 95 Nasal Cannula 3.0 32 07/16/17 19:38 Nasal Cannula 3.0 32 07/16/17 19:38 73 18 Nasal Cannula 3.0 32 07/16/17 18:48 71 142/88 07/16/17 18:43 Nasal Cannula 3.0 07/16/17 18:42 98.0 71 20 142/88 Nasal Cannula 3.0 98.0 07/16/17 17:37 98.0 07/16/17 17:07 98.0 07/16/17 16:00 98.0 82 17 125/74 92 Nasal Cannula 2.0 98.0 07/16/17 15:00 97.6 66 20 123/74 Nasal Cannula 2.0 97.6 07/16/17 15:00 Nasal Cannula 3.0 07/16/17 12:13 97.6 07/16/17 12:13 62 119/72 07/16/17 12:00 97.9 64 24 118/81 97 Nasal Cannula 2.0 97.9 07/16/17 09:00 62 119/72 07/16/17 08:20 68 18 Nasal Cannula 2.0 28 07/16/17 08:20 93 Nasal Cannula 2.0 28 07/16/17 08:20 Nasal Cannula 2.0 28 07/16/17 08:18 119/72 07/16/17 08:15 97.6 07/16/17 08:00 98.6 62 20 119/72 95 Nasal Cannula 2.0 98.6 07/16/17 05:36 72 125/75 07/16/17 04:00 97.6 72 22 125/75 98 97.6 07/16/17 00:23 70 130/88 07/16/17 00:00 98.4 70 22 130/88 98 98.4 Intake and Output 07/15/17 07/16/17 19:00 07:00 Intake Total 480 ml 110 ml Balance 480 ml 110 ml Intake Oral 480 ml IV Total 110 ml # Voids 4 # Bowel Movements 2 3 Laboratory Tests 07/16/17 09:55: White Blood Count 5.2, Red Blood Count 3.05L, Hemoglobin 9.9L, Hematocrit 31.6L , Mean Corpuscular Volume 104H, Mean Corpuscular Hemoglobin 32.4H, Mean Corpuscular Hemoglobin Concent 31.2L, Red Cell Distribution Width 15.9H, Platelet Count 74L, Mean Platelet Volume 7.0, Neutrophils (%) (Auto) , Lymphocytes (%) (Auto) , Monocytes (%) (Auto) , Eosinophils (%) (Auto) , Basophils (%) (Auto) , Differential Total Cells Counted 100, Neutrophils % ( Manual) 57, Lymphocytes % (Manual) 21, Monocytes % (Manual) 13H, Eosinophils % ( Manual) 9H, Basophils % (Manual) 0, Band Neutrophils 0, Platelet Estimate DecreasedL, Platelet Morphology Normal, Hypochromasia 1+, Anisocytosis 1+, Macrocytosis 1+, Sodium Level 134L, Potassium Level 5.3H, Chloride Level 96L, Carbon Dioxide Level 25, Anion Gap 13, Blood Urea Nitrogen 87H, Creatinine 14.6H , Estimat Glomerular Filtration Rate 4.2, Glucose Level 132H, Calcium Level 9.0 07/16/17 20:05: Miscellaneous Test 2 [Pending], Random Amikacin Level [Pending] Height (Feet): 5 Height (Inches): 7.00 Weight (Pounds): 230 Objective WDWN AA Man NCAT supple CTA RRR Soft mildly distended, (+) improved RUQ TTP, (+) trunk edema (+) leg edema PERCY JOYNER Jul 16, 2017 21:45
[2017-07-17] VITALS: BP 124/61
[2017-07-17] MEDS: Clindamycin 150mg cap ORAL SCH ×4 (00:10→17:43)
[2017-07-17] MEDS: dilTIAZem HCl 30mg tab ORAL SCH ×4 (00:10→17:43)
[2017-07-17 04:00] VITALS: BP 115/70
[2017-07-17 06:31] LABS: HEMATOCRIT 32.9 % (42.0-52.0); HEMOGLOBIN 10.2 G/DL (14.2-18.0); MEAN CORPUSCULAR VOLUME 105 FL (80-99); PLATELET COUNT 85 K/UL (150-450); RED BLOOD COUNT 3.14 M/UL (4.70-6.10); RED CELL DISTRIBUTION WIDTH 15.9 % (11.6-14.8)
[2017-07-17 07:09] LABS: ANION GAP 11 mmol/L (5-15); BLOOD UREA NITROGEN 59 mg/dL (7-18); CALCIUM 8.8 MG/DL (8.5-10.1); CARBON DIOXIDE 29 MMOL/L (21-32); CHLORIDE 98 MMOL/L (98-107); CREATININE 11.5 MG/DL (0.55-1.30); POTASSIUM 4.7 MMOL/L (3.5-5.1); SODIUM 138 MMOL/L (136-145)
[2017-07-17 08:00] VITALS: BP 106/61
[2017-07-17] MEDS: Lisinopril 20mg tab ORAL SCH ×2 (08:17→20:27)
[2017-07-17] MEDS: Docusate 100mg cap ORAL SCH ×3 (08:32→17:43)
[2017-07-17] MEDS: Eliquis 2.5mg tablet ORAL SCH ×2 (08:32→20:27)
[2017-07-17 12:00] VITALS: BP 125/65
--- NOTE | 2017-07-17 12:43 | Nephrology Progress Note ---
Assessment/Plan Problem List: (1) ESRD (end stage renal disease) on dialysis (2) Shortness of breath (3) Anemia Assessment Anemia ESRD , missed HD on admission , admitted with high K and pulmonary edema Acute respiratory distress due to volume overload elevated troponin r/o ACS h/o COPD ? exacerbation HTN urgency Cardiomyopathy L AICD anemia of chronic kidney disease Hx of CVA Plan Plan: HD next 07/18- will care for high K with HD Max UF Transfused Phos binders BP meds adjustment Optimize cardiac status per orders Subjective ROS Limited/Unobtainable: No Objective Objective Last 24 Hour Vital Signs Date Time Temp Pulse Resp B/P (MAP) Pulse Ox O2 Delivery O2 Flow Rate FiO2 07/17/17 12:26 97.7 07/17/17 12:26 74 125/65 07/17/17 12:00 97.7 74 20 125/65 97 Nasal Cannula 2.0 97.7 07/17/17 09:02 98.8 07/17/17 08:32 98.8 07/17/17 08:17 106/61 07/17/17 08:16 74 106/61 07/17/17 08:06 Nasal Cannula 2.0 28 07/17/17 08:06 72 18 Nasal Cannula 2.0 28 07/17/17 08:06 94 Nasal Cannula 2.0 28 07/17/17 08:00 98.2 20 106/61 91 Nasal Cannula 2.0 98.2 07/17/17 06:20 79 115/70 07/17/17 04:00 98.8 20 115/70 65 Nasal Cannula 98.8 07/17/17 00:10 79 124/61 07/17/17 00:00 98.6 79 20 124/61 91 Nasal Cannula 98.6 07/16/17 20:55 73 126/73 07/16/17 20:55 126/73 07/16/17 20:00 98.2 73 20 126/73 95 Nasal Cannula 98.2 07/16/17 19:38 95 Nasal Cannula 3.0 32 07/16/17 19:38 Nasal Cannula 3.0 32 07/16/17 19:38 73 18 Nasal Cannula 3.0 32 07/16/17 18:48 71 142/88 07/16/17 18:43 Nasal Cannula 3.0 07/16/17 18:42 98.0 71 20 142/88 Nasal Cannula 3.0 98.0 07/16/17 17:37 98.0 07/16/17 17:07 98.0 07/16/17 16:00 98.0 82 17 125/74 92 Nasal Cannula 2.0 98.0 07/16/17 15:00 97.6 66 20 123/74 Nasal Cannula 2.0 97.6 07/16/17 15:00 Nasal Cannula 3.0 Intake and Output 07/16/17 07/17/17 19:00 07:00 Intake Total 450 ml Output Total 4000 ml Balance -4000 ml 450 ml Intake Oral 450 ml Hemodialysis UF 4000 ml # Voids 2 1 # Bowel Movements 1 3 Laboratory Tests 07/16/17 20:05: Miscellaneous Test 2 [Pending], Random Amikacin Level 32.1 07/17/17 05:30: White Blood Count 6.0, Red Blood Count 3.14L, Hemoglobin 10.2L, Hematocrit 32.9L , Mean Corpuscular Volume 105H, Mean Corpuscular Hemoglobin 32.5H, Mean Corpuscular Hemoglobin Concent 31.0L, Red Cell Distribution Width 15.9H, Platelet Count 85L, Mean Platelet Volume 7.5, Neutrophils (%) (Auto) , Lymphocytes (%) (Auto) , Monocytes (%) (Auto) , Eosinophils (%) (Auto) , Basophils (%) (Auto) , Differential Total Cells Counted 100, Neutrophils % ( Manual) 60, Lymphocytes % (Manual) 15L, Monocytes % (Manual) 16H, Eosinophils % (Manual) 7H, Basophils % (Manual) 2, Band Neutrophils 0, Platelet Estimate DecreasedL, Platelet Morphology Normal, Anisocytosis 1+, Sodium Level 138, Potassium Level 4.7, Chloride Level 98, Carbon Dioxide Level 29, Anion Gap 11, Blood Urea Nitrogen 59H, Creatinine 11.5H, Estimat Glomerular Filtration Rate 5.6, Glucose Level 88, Calcium Level 8.8 Height (Feet): 5 Height (Inches): 7.00 Weight (Pounds): 229 General Appearance: no apparent distress Objective no change LIAM MONTELONGO Jul 17, 2017 12:43
--- NOTE | 2017-07-17 14:29 | Pulmonology Progress Note ---
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 on anti TB meds wtih IV Amikacin, ethambutol cxr in am BAL showing vre and Abby dc planning Subjective ROS Limited/Unobtainable: No Constitutional: Reports: no symptoms HEENT: Repors: no symptoms Respiratory: Reports: no symptoms Allergies: Coded Allergies: IODINE AND IODIDE CONTAINING PRODUC (Verified Allergy, Mild, itching and pruritis, 06/25/17) Uncoded Allergies: CONTRAST/DYE (Allergy, Intermediate, PRURITIS AND ITCHING, 06/25/17) Objective Last 24 Hour Vital Signs Date Time Temp Pulse Resp B/P (MAP) Pulse Ox O2 Delivery O2 Flow Rate FiO2 07/17/17 12:56 97.7 07/17/17 12:26 97.7 07/17/17 12:26 74 125/65 07/17/17 12:00 97.7 74 20 125/65 97 Nasal Cannula 2.0 97.7 07/17/17 08:32 98.8 07/17/17 08:17 106/61 07/17/17 08:16 74 106/61 07/17/17 08:06 Nasal Cannula 2.0 28 07/17/17 08:06 72 18 Nasal Cannula 2.0 28 07/17/17 08:06 94 Nasal Cannula 2.0 28 07/17/17 08:00 98.2 20 106/61 91 Nasal Cannula 2.0 98.2 07/17/17 06:20 79 115/70 07/17/17 04:00 98.8 20 115/70 65 Nasal Cannula 98.8 07/17/17 00:10 79 124/61 07/17/17 00:00 98.6 79 20 124/61 91 Nasal Cannula 98.6 07/16/17 20:55 73 126/73 07/16/17 20:55 126/73 07/16/17 20:00 98.2 73 20 126/73 95 Nasal Cannula 98.2 07/16/17 19:38 95 Nasal Cannula 3.0 32 07/16/17 19:38 Nasal Cannula 3.0 32 07/16/17 19:38 73 18 Nasal Cannula 3.0 32 07/16/17 18:48 71 142/88 07/16/17 18:43 Nasal Cannula 3.0 07/16/17 18:42 98.0 71 20 142/88 Nasal Cannula 3.0 98.0 07/16/17 17:37 98.0 07/16/17 17:07 98.0 07/16/17 16:00 98.0 82 17 125/74 92 Nasal Cannula 2.0 98.0 07/16/17 15:00 97.6 66 20 123/74 Nasal Cannula 2.0 97.6 07/16/17 15:00 Nasal Cannula 3.0 Intake and Output 07/16/17 07/17/17 19:00 07:00 Intake Total 450 ml Output Total 4000 ml Balance -4000 ml 450 ml Intake Oral 450 ml Hemodialysis UF 4000 ml # Voids 2 1 # Bowel Movements 1 3 Objective General Appearance: WD/WN HEENT: normocephalic, atraumatic, anicteric Respiratory/Chest: loud rhonchi Cardiovascular: normal peripheral pulses, normal rate, regular rhythm Abdomen: normal bowel sounds, soft, non tender, no organomegaly Genitourinary: normal external genitalia Extremities: no cyanosis Skin: no rash, no lesions Neurologic/Psychiatric: 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, no motor/sensory deficits Lymphatic: no neck adenopathy, no groin adenopathy Laboratory Tests 07/16/17 20:05: Miscellaneous Test 2 [Pending], Random Amikacin Level 32.1 07/17/17 05:30: White Blood Count 6.0, Red Blood Count 3.14L, Hemoglobin 10.2L, Hematocrit 32.9L , Mean Corpuscular Volume 105H, Mean Corpuscular Hemoglobin 32.5H, Mean Corpuscular Hemoglobin Concent 31.0L, Red Cell Distribution Width 15.9H, Platelet Count 85L, Mean Platelet Volume 7.5, Neutrophils (%) (Auto) , Lymphocytes (%) (Auto) , Monocytes (%) (Auto) , Eosinophils (%) (Auto) , Basophils (%) (Auto) , Differential Total Cells Counted 100, Neutrophils % ( Manual) 60, Lymphocytes % (Manual) 15L, Monocytes % (Manual) 16H, Eosinophils % (Manual) 7H, Basophils % (Manual) 2, Band Neutrophils 0, Platelet Estimate DecreasedL, Platelet Morphology Normal, Anisocytosis 1+, Sodium Level 138, Potassium Level 4.7, Chloride Level 98, Carbon Dioxide Level 29, Anion Gap 11, Blood Urea Nitrogen 59H, Creatinine 11.5H, Estimat Glomerular Filtration Rate 5.6, Glucose Level 88, Calcium Level 8.8 Current Medications Medications (Trade) Dose Ordered Sig/Jose Route PRN Reason Start Time Stop Time Status Last Admin Dose Admin Alprazolam (Xanax) 2 mg DAILYPRN PRN ORAL For Anxiety 07/16/17 15:15 07/23/17 15:14 07/16/17 14:43 Amikacin Protocol (Amikacin pharmacy to dose) 1 ea DAILY PRN MISC Per rx protocol 07/16/17 09:00 08/03/17 15:14 Amikacin Sulfate 800 mg/Dextrose 113.2 ml @ 226.4 mls/ hr FRI-FRI-FRI IV 07/18/17 21:00 07/25/17 20:59 Apixaban (Eliquis) 2.5 mg Q12HR ORAL 07/16/17 09:00 08/15/17 08:59 07/17/17 08:32 Chlorhexidine Gluconate (Mireille-Hex 2%) 1 applic DAILY@2000 TOPIC 07/15/17 20:00 08/02/17 19:59 07/15/17 21:05 Clindamycin HCl (Cleocin) 450 mg EVERY 6 HOURS ORAL 07/16/17 18:00 07/23/17 17:59 07/17/17 12:26 Clonidine HCl (Catapres Tab) 0.1 mg Q4H PRN ORAL bp over 160 syst 07/15/17 19:30 07/19/17 11:29 Dextrose (Dextrose 50%) 25 ml STAT PRN IV HYPOGLYCEMIA 07/16/17 08:30 08/08/17 08:29 Diltiazem HCl (Cardizem) 30 mg EVERY 6 HOURS ORAL 07/16/17 00:00 08/09/17 19:29 07/17/17 12:26 Docusate Sodium (Colace) 100 mg THREE TIMES A DAY ORAL 07/16/17 09:00 07/18/17 13:00 07/17/17 12:26 Ethambutol HCl (Myambutol) 1,000 mg 3XW ORAL 07/16/17 09:00 07/21/17 23:59 07/16/17 08:16 Hydromorphone HCl (Dilaudid) 2 mg Q4H PRN IVP Severe Pain (Pain Scale 7-10) 07/16/17 21:15 07/23/17 21:14 07/17/17 12:26 Levofloxacin (Levaquin) 750 mg EVERY OTHER DAY@1999 ORAL 07/15/17 20:00 07/21/17 23:59 07/15/17 21:04 Lisinopril (Prinivil) 20 mg Q12HR ORAL 07/16/17 09:00 08/15/17 08:59 07/16/17 20:55 Metoprolol Tartrate (Lopressor) 100 mg Q12HR ORAL 07/15/17 21:00 08/10/17 20:59 07/16/17 20:55 Nitroglycerin (Ntg) 0.4 mg Q5M PRN SL Prn Chest Pain 07/15/17 19:20 07/19/17 11:29 Promethazine HCl/ Codeine (Phenergan with Codeine) 5 ml Q4H PRN ORAL For Cough 07/15/17 19:32 07/22/17 19:31 Christine Morgan MD Jul 17, 2017 14:28
[2017-07-17] MEDS: ALPRAZolam 0.5mg tab ORAL PRN (14:57)
[2017-07-17 16:00] VITALS: BP 124/63
--- NOTE | 2017-07-17 16:20 | Internal Med Progress Note ---
Subjective Date of Service: Jul 17, 2017 Physician Name Zoey Pires Attending Physician Chaitanya Weinstein MD Current Medications Medications (Trade) Dose Ordered Sig/Jose Route PRN Reason Start Time Stop Time Status Last Admin Dose Admin Alprazolam (Xanax) 2 mg DAILYPRN PRN ORAL For Anxiety 07/16/17 15:15 07/23/17 15:14 07/17/17 14:57 Amikacin Protocol (Amikacin pharmacy to dose) 1 ea DAILY PRN MISC Per rx protocol 07/16/17 09:00 08/03/17 15:14 Amikacin Sulfate 800 mg/Dextrose 113.2 ml @ 226.4 mls/ hr FRI-FRI-FRI IV 07/18/17 21:00 07/25/17 20:59 Apixaban (Eliquis) 2.5 mg Q12HR ORAL 07/16/17 09:00 08/15/17 08:59 07/17/17 08:32 Chlorhexidine Gluconate (Mireille-Hex 2%) 1 applic DAILY@2000 TOPIC 07/15/17 20:00 08/02/17 19:59 07/15/17 21:05 Clindamycin HCl (Cleocin) 450 mg EVERY 6 HOURS ORAL 07/16/17 18:00 07/23/17 17:59 07/17/17 12:26 Clonidine HCl (Catapres Tab) 0.1 mg Q4H PRN ORAL bp over 160 syst 07/15/17 19:30 07/19/17 11:29 Dextrose (Dextrose 50%) 25 ml STAT PRN IV HYPOGLYCEMIA 07/16/17 08:30 08/08/17 08:29 Diltiazem HCl (Cardizem) 30 mg EVERY 6 HOURS ORAL 07/16/17 00:00 08/09/17 19:29 07/17/17 12:26 Docusate Sodium (Colace) 100 mg THREE TIMES A DAY ORAL 07/16/17 09:00 07/18/17 13:00 07/17/17 12:26 Ethambutol HCl (Myambutol) 1,000 mg 3XW ORAL 07/16/17 09:00 07/21/17 23:59 07/16/17 08:16 Hydromorphone HCl (Dilaudid) 2 mg Q4H PRN IVP Severe Pain (Pain Scale 7-10) 07/16/17 21:15 07/23/17 21:14 07/17/17 12:26 Levofloxacin (Levaquin) 750 mg EVERY OTHER DAY@1999 ORAL 07/15/17 20:00 07/21/17 23:59 07/15/17 21:04 Lisinopril (Prinivil) 20 mg Q12HR ORAL 07/16/17 09:00 08/15/17 08:59 07/16/17 20:55 Metoprolol Tartrate (Lopressor) 100 mg Q12HR ORAL 07/15/17 21:00 08/10/17 20:59 07/16/17 20:55 Nitroglycerin (Ntg) 0.4 mg Q5M PRN SL Prn Chest Pain 07/15/17 19:20 07/19/17 11:29 Promethazine HCl/ Codeine (Phenergan with Codeine) 5 ml Q4H PRN ORAL For Cough 07/15/17 19:32 07/22/17 19:31 Allergies: Coded Allergies: IODINE AND IODIDE CONTAINING PRODUC (Verified Allergy, Mild, itching and pruritis, 06/25/17) Uncoded Allergies: CONTRAST/DYE (Allergy, Intermediate, PRURITIS AND ITCHING, 06/25/17) ROS Limited/Unobtainable: No Constitutional: Reports: no symptoms HEENT: Reports: no symptoms Cardiovascular: Reports: no symptoms Respiratory: Reports: no symptoms Gastrointestinal/Abdominal: Reports: no symptoms Genitourinary: Reports: no symptoms Neurologic/Psychiatric: Reports: no symptoms Subjective 57 YO M admitted with chest pain and shortness of breath. Now pneumonia and candelaria heart failure. Back on nasal canula. Cover for Int Misbah-Dr Weinstein. Now atrial flutter Objective Last Vital Signs Date Time Temp Pulse Resp B/P (MAP) Pulse Ox O2 Delivery O2 Flow Rate FiO2 07/17/17 12:56 97.7 07/17/17 12:26 74 125/65 07/17/17 12:00 20 97 Nasal Cannula 2.0 07/17/17 08:06 28 Laboratory Tests Test 07/16/17 20:05 07/17/17 05:30 Miscellaneous Test 2 Pending Random Amikacin Level 32.1 MG/L White Blood Count 6.0 K/UL (4.8-10.8) Red Blood Count 3.14 M/UL (4.70-6.10) L Hemoglobin 10.2 G/DL (14.2-18.0) L Hematocrit 32.9 % (42.0-52.0) L Mean Corpuscular Volume 105 FL (80-99) H Mean Corpuscular Hemoglobin 32.5 PG (27.0-31.0) H Mean Corpuscular Hemoglobin Concent 31.0 G/DL (32.0-36.0) L Red Cell Distribution Width 15.9 % (11.6-14.8) H Platelet Count 85 K/UL (150-450) L Mean Platelet Volume 7.5 FL (6.5-10.1) Neutrophils (%) (Auto) % (45.0-75.0) Lymphocytes (%) (Auto) % (20.0-45.0) Monocytes (%) (Auto) % (1.0-10.0) Eosinophils (%) (Auto) % (0.0-3.0) Basophils (%) (Auto) % (0.0-2.0) Differential Total Cells Counted 100 Neutrophils % (Manual) 60 % (45-75) Lymphocytes % (Manual) 15 % (20-45) L Monocytes % (Manual) 16 % (1-10) H Eosinophils % (Manual) 7 % (0-3) H Basophils % (Manual) 2 % (0-2) Band Neutrophils 0 % (0-8) Platelet Estimate Decreased L Platelet Morphology Normal Anisocytosis 1+ Sodium Level 138 MMOL/L (136-145) Potassium Level 4.7 MMOL/L (3.5-5.1) Chloride Level 98 MMOL/L (98-107) Carbon Dioxide Level 29 MMOL/L (21-32) Anion Gap 11 mmol/L (5-15) Blood Urea Nitrogen 59 mg/dL (7-18) H Creatinine 11.5 MG/DL (0.55-1.30) H Estimat Glomerular Filtration Rate 5.6 mL/min (>60) Glucose Level 88 MG/DL (74-106) Calcium Level 8.8 MG/DL (8.5-10.1) Intake and Output 07/16/17 07/17/17 19:00 07:00 Intake Total 55 ml 450 ml Output Total 4000 ml Balance -3945 ml 450 ml Intake Oral 450 ml IV Total 55 ml Hemodialysis UF 4000 ml # Voids 2 1 # Bowel Movements 1 3 Objective General Appearance: WD/WN, alert, moderate distress EENT: PERRL/EOMI, normal ENT inspection Neck: non-tender, normal alignment, supple, normal inspection Cardiovascular: Tachycardia; normal peripheral pulses, normal rate, regular rhythm, no gallop/murmur, no JVD Respiratory/Chest: Nasal canula; respiratory distress, crackles/rales, rhonchi - bilaterally, expiratory wheezing Abdomen: normal bowel sounds, non tender, soft, no organomegaly, no mass Extremities: normal range of motion Neurologic: change agent 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, no motor/sensory deficits Skin: normal pigmentation, warm/dry Assessment/Plan Problem List: (1) Atrial flutter with rapid ventricular response Assessment & Plan: D/C coreg; start metoprolol and IV diltiazem per cardiology consult. (2) Respiratory failure Assessment & Plan: CHF and Pneumonia. Currently on nasal canula. See pulmonay note. (3) Pleuritic chest pain (4) Hemoptysis Assessment & Plan: Due to pneumonia (5) Pneumonia Assessment & Plan: Providencia and pseudamonas. RUL and cavitary. Concerning for TB. Await AFB cultures-see ID consult. Continue ethambutol, amikacin, levaquin and clindamycin per ID (6) Shortness of breath (7) ESRD (end stage renal disease) on dialysis Assessment & Plan: See nephrology note. Last Hemodialysis 07/14/17 per nephrology (8) Hyperkalemia Assessment & Plan: Due to renal failure. Hemodialysis 06/13/17 per nephrology (9) COPD (chronic obstructive pulmonary disease) (10) HTN (hypertension) Assessment & Plan: Continue coreg and lisinopril. (11) CHF (congestive heart failure) (12) Elevated troponin Assessment & Plan: ?due to renal failure? See cardiology note. (13) Intractable abdominal pain Assessment & Plan: See surgery note (14) Conjunctivitis Assessment & Plan: start tobramycin (15) Diarrhea Assessment & Plan: C. Diff Status: not improved Assessment/Plan Discharge planning - coordination with [facility] pending ZOEY PIRES Jul 17, 2017 16:20
--- NOTE | 2017-07-17 18:46 | Infectious Diseases Prog Note ---
Assessment/Plan Assessment/Plan Cavitary PNA. SCx: Neg ( m/l necrotizing Pneum, vs anaerobic abscess, doubt TB or fungal ) ; improving - 07/09 SP BAL Cx( Abby and MOJGAN : Colonizers ) , Path : Neg for fungus and Malignancy - -CT 07/15 : he overall lesion appears smaller, measuring 6.3 cm AP by 3.6 cm transverse by 2.3 cm craniocaudad currently -CT chest 06/25: Since the prior study of 06/15/2017, and. From further reduction in size of previously demonstrated thick walled right upper lobe cavitary mass. This was previously thought to most likely represent a cavitary inflammatory mass, and the interim reduction in size certainly supports that. Much less likely a cavitary neoplasm, but follow-up to resolution is recommended. Markedly improved parenchymal disease bilaterally, since the previous study. Nonetheless , extensive atelectasis and groundglass consolidation persists. Persistent small right pleural effusion, smaller than on the prior study. Resolved left pleural effusion 6 mm nodular opacity in the right upper lobe, not evident previously but likely obscured by surrounding consolidated lung parenchyma. This should be followed up in 6 months to one year depending on results of interim follow-up exams T-SPOT :Neg AFB x 3 : Neg MTB PCR x2 : neg cryptococcus Ag, Histoplams mycelial Ab , Blastomyces ab : neg ; histoplasma yeast ab (not able to be done due to anticomplementary activity) -Cocci, Asp ag p -Fungitell + 144 (?aspergillosis vs m/l false positive) CT chest 06/15: Slightly smaller (6 cm diameter ) but mostly unchanged cavitary lesion in the right lung, previously thought to represent a cavitating inflammatory process. Lung abscess is certainly a possibility. Fairly extensive bilateral pulmonary parenchymal consolidation, slightly increased from previous exam of 06/05/2017. Likely a combination of pulmonary edema and pneumonia. Small right and trace left pleural effusion, new/increased from the previous study. CT 06/05: 7.8 x 5.3 x 6.6 cm dense opacity in the posterior inferior right upper lobe with a central cavitation. CRP 14 Influenza negative Coccidioidal ,Galactomannan : NEG ( PER LAB ) Transaminitis , improving after stopping rifampin /2 Hep C cirrhosis- no active Hep C as VL not detected -CT abd/p: Evidence of hepatic cirrhosis. Hepatosplenomegaly. evidence of generalized anasarca, with pleural fluid and generalized subcutaneous edema. Cholelithiasis, also previously reported. Possible diverticulosis. No evidence of diverticulitis US Abd : Cholelithiasis. There is gallbladder wall thickening, likely related to hemodynamic abnormalities Splenomegaly. Evidence of hepatic cirrhosis HIV : NEG Hep Panel B neg , C Ab : +ve , VL not detected leukopenia and TCP 2/2 splenomegaly Seizure disorder History of CVA History of pacemaker placement Hyperlipidemia Hypertension COPD/asthma End-stage renal disease, on hemodialysis Diabetes Anxiety Anemia Echo, ejection fraction 45% to 50%. PLAN: - Cont oral Clinda ( till resolution of of abscess) abx d# 43 Continue empiric Ethambutol and Levaquin, Amikacin ( empiric TB AB Rx d# 31 as per TB control request, this was DW TB control , still insists to cont w TB regiment till final cultures are back ) 07/16 SP DC Zoysn d# 9 ( for SOB and CXR worsen , better coverage of anaerobes, PSA and Providencia ); 07/07 SP Dc Flagyl 07/06 SP Voriconazole ( low antonio for fungal infection , and in the setting of cirrhosis ) 07/05 SP Micafungin abx d#20 , Rifampin 600mg qd #10 07/01 SP Ceftriaxone #10 06/28 SP Amikacin #15 06/25 SP PO Voriconazole #3 06/20 SP Liposomal Ampho #8 06/17 SP IV Vancomycin #14, Meropenem #5 06/13 SP Zosyn d# 10 3 SP Zithromax D# 6 f/u sputum culture (fungal, and AFB x3). BAL fungal and AFB Cx : P - CMP - CT chest Subjective Allergies: Coded Allergies: IODINE AND IODIDE CONTAINING PRODUC (Verified Allergy, Mild, itching and pruritis, 06/25/17) Uncoded Allergies: CONTRAST/DYE (Allergy, Intermediate, PRURITIS AND ITCHING, 06/25/17) Subjective comfortable Objective Vital Signs Last 24 Hour Vital Signs Date Time Temp Pulse Resp B/P (MAP) Pulse Ox O2 Delivery O2 Flow Rate FiO2 07/17/17 18:13 98.0 07/17/17 17:43 98.0 07/17/17 17:43 63 124/63 07/17/17 16:00 98.0 63 20 124/63 99 98.0 07/17/17 12:26 97.7 07/17/17 12:26 74 125/65 07/17/17 12:00 97.7 74 20 125/65 97 Nasal Cannula 2.0 97.7 07/17/17 08:32 98.8 07/17/17 08:17 106/61 07/17/17 08:16 74 106/61 07/17/17 08:06 Nasal Cannula 2.0 28 07/17/17 08:06 72 18 Nasal Cannula 2.0 28 07/17/17 08:06 94 Nasal Cannula 2.0 28 07/17/17 08:00 98.2 20 106/61 91 Nasal Cannula 2.0 98.2 07/17/17 06:20 79 115/70 07/17/17 04:00 98.8 20 115/70 65 Nasal Cannula 98.8 07/17/17 00:10 79 124/61 07/17/17 00:00 98.6 79 20 124/61 91 Nasal Cannula 98.6 07/16/17 20:55 73 126/73 07/16/17 20:55 126/73 07/16/17 20:00 98.2 73 20 126/73 95 Nasal Cannula 98.2 07/16/17 19:38 95 Nasal Cannula 3.0 32 07/16/17 19:38 Nasal Cannula 3.0 32 07/16/17 19:38 73 18 Nasal Cannula 3.0 32 07/16/17 18:48 71 142/88 Height (Feet): 5 Height (Inches): 7.00 Weight (Pounds): 229 HEENT: anicteric Respiratory/Chest: normal breath sounds Cardiovascular: regular rhythm Abdomen: no organomegaly Laboratory Tests Test 07/16/17 20:05 07/17/17 05:30 Miscellaneous Test 2 Pending Random Amikacin Level 32.1 MG/L White Blood Count 6.0 K/UL (4.8-10.8) Red Blood Count 3.14 M/UL (4.70-6.10) L Hemoglobin 10.2 G/DL (14.2-18.0) L Hematocrit 32.9 % (42.0-52.0) L Mean Corpuscular Volume 105 FL (80-99) H Mean Corpuscular Hemoglobin 32.5 PG (27.0-31.0) H Mean Corpuscular Hemoglobin Concent 31.0 G/DL (32.0-36.0) L Red Cell Distribution Width 15.9 % (11.6-14.8) H Platelet Count 85 K/UL (150-450) L Mean Platelet Volume 7.5 FL (6.5-10.1) Neutrophils (%) (Auto) % (45.0-75.0) Lymphocytes (%) (Auto) % (20.0-45.0) Monocytes (%) (Auto) % (1.0-10.0) Eosinophils (%) (Auto) % (0.0-3.0) Basophils (%) (Auto) % (0.0-2.0) Differential Total Cells Counted 100 Neutrophils % (Manual) 60 % (45-75) Lymphocytes % (Manual) 15 % (20-45) L Monocytes % (Manual) 16 % (1-10) H Eosinophils % (Manual) 7 % (0-3) H Basophils % (Manual) 2 % (0-2) Band Neutrophils 0 % (0-8) Platelet Estimate Decreased L Platelet Morphology Normal Anisocytosis 1+ Sodium Level 138 MMOL/L (136-145) Potassium Level 4.7 MMOL/L (3.5-5.1) Chloride Level 98 MMOL/L (98-107) Carbon Dioxide Level 29 MMOL/L (21-32) Anion Gap 11 mmol/L (5-15) Blood Urea Nitrogen 59 mg/dL (7-18) H Creatinine 11.5 MG/DL (0.55-1.30) H Estimat Glomerular Filtration Rate 5.6 mL/min (>60) Glucose Level 88 MG/DL (74-106) Calcium Level 8.8 MG/DL (8.5-10.1) Current Medications Medications (Trade) Dose Ordered Sig/Jose Route PRN Reason Start Time Stop Time Status Last Admin Dose Admin Alprazolam (Xanax) 2 mg DAILYPRN PRN ORAL For Anxiety 07/16/17 15:15 07/23/17 15:14 07/17/17 14:57 Amikacin Protocol (Amikacin pharmacy to dose) 1 ea DAILY PRN MISC Per rx protocol 07/16/17 09:00 08/03/17 15:14 Amikacin Sulfate 800 mg/Dextrose 113.2 ml @ 226.4 mls/ hr FRI-FRI-FRI IV 07/18/17 21:00 07/25/17 20:59 Apixaban (Eliquis) 2.5 mg Q12HR ORAL 07/16/17 09:00 08/15/17 08:59 07/17/17 08:32 Chlorhexidine Gluconate (Mireille-Hex 2%) 1 applic DAILY@1999 TOPIC 07/15/17 20:00 08/02/17 19:59 07/15/17 21:05 Clindamycin HCl (Cleocin) 450 mg EVERY 6 HOURS ORAL 07/16/17 18:00 07/23/17 17:59 07/17/17 17:43 Clonidine HCl (Catapres Tab) 0.1 mg Q4H PRN ORAL bp over 160 syst 07/15/17 19:30 07/19/17 11:29 Dextrose (Dextrose 50%) 25 ml STAT PRN IV HYPOGLYCEMIA 07/16/17 08:30 08/08/17 08:29 Diltiazem HCl (Cardizem) 30 mg EVERY 6 HOURS ORAL 07/16/17 00:00 08/09/17 19:29 07/17/17 17:43 Docusate Sodium (Colace) 100 mg THREE TIMES A DAY ORAL 07/16/17 09:00 07/18/17 13:00 07/17/17 17:43 Ethambutol HCl (Myambutol) 1,000 mg 3XW ORAL 07/16/17 09:00 07/21/17 23:59 07/16/17 08:16 Hydromorphone HCl (Dilaudid) 2 mg Q4H PRN IVP Severe Pain (Pain Scale 7-10) 07/16/17 21:15 07/23/17 21:14 07/17/17 17:43 Levofloxacin (Levaquin) 750 mg EVERY OTHER DAY@1999 ORAL 07/15/17 20:00 07/21/17 23:59 07/15/17 21:04 Lisinopril (Prinivil) 20 mg Q12HR ORAL 07/16/17 09:00 08/15/17 08:59 07/16/17 20:55 Metoprolol Tartrate (Lopressor) 100 mg Q12HR ORAL 07/15/17 21:00 08/10/17 20:59 07/16/17 20:55 Nitroglycerin (Ntg) 0.4 mg Q5M PRN SL Prn Chest Pain 07/15/17 19:20 07/19/17 11:29 Promethazine HCl/ Codeine (Phenergan with Codeine) 5 ml Q4H PRN ORAL For Cough 07/15/17 19:32 07/22/17 19:31 Cristofer Antunez MD Jul 17, 2017 18:46
--- NOTE | 2017-07-17 19:04 | Cardiology Progress Note ---
Assessment/Plan Assessment/Plan pleuritic chest pain neg recent sig perfusion abn; systolic dysfunction on mild degree involving the septum cavitating lung lesion improved on recent ct esrd htn anemia icd hx biotonix , interrogated 07/09/19 edema afib / atrial tachy thrombocytopenia iodine allergy remains in sinus plt low is on eliquis for stroke prevention venous duplex neg echo reviewed swma in septum (possible) as tech difficult study ef 45% afb smear neg ct noted icd interrogated no shock fucntion fine cxr much improved on higher volume of UF with dialysis still needs more fluid removed on acei Subjective Cardiovascular: Denies: chest pain, lightheadedness Respiratory: Reports: shortness of breath Gastrointestinal/Abdominal: Denies: abdominal pain Genitourinary: Denies: burning Objective Last 24 Hour Vital Signs Date Time Temp Pulse Resp B/P (MAP) Pulse Ox O2 Delivery O2 Flow Rate FiO2 07/17/17 18:13 98.0 07/17/17 17:43 98.0 07/17/17 17:43 63 124/63 07/17/17 16:00 98.0 63 20 124/63 99 98.0 07/17/17 12:26 97.7 07/17/17 12:26 74 125/65 07/17/17 12:00 97.7 74 20 125/65 97 Nasal Cannula 2.0 97.7 07/17/17 08:32 98.8 07/17/17 08:17 106/61 07/17/17 08:16 74 106/61 07/17/17 08:06 Nasal Cannula 2.0 28 07/17/17 08:06 72 18 Nasal Cannula 2.0 28 07/17/17 08:06 94 Nasal Cannula 2.0 28 07/17/17 08:00 98.2 20 106/61 91 Nasal Cannula 2.0 98.2 07/17/17 06:20 79 115/70 07/17/17 04:00 98.8 20 115/70 65 Nasal Cannula 98.8 07/17/17 00:10 79 124/61 07/17/17 00:00 98.6 79 20 124/61 91 Nasal Cannula 98.6 07/16/17 20:55 73 126/73 07/16/17 20:55 126/73 07/16/17 20:00 98.2 73 20 126/73 95 Nasal Cannula 98.2 07/16/17 19:38 95 Nasal Cannula 3.0 32 07/16/17 19:38 Nasal Cannula 3.0 32 07/16/17 19:38 73 18 Nasal Cannula 3.0 32 General Appearance: alert Neck: no JVD Cardiovascular: normal rate, regular rhythm Respiratory/Chest: lungs clear Abdomen: normal bowel sounds, non tender, soft Extremities: no swelling Intake and Output 07/16/17 07/17/17 19:00 07:00 Intake Total 55 ml 450 ml Output Total 4000 ml Balance -3945 ml 450 ml Intake Oral 450 ml IV Total 55 ml Hemodialysis UF 4000 ml # Voids 2 1 # Bowel Movements 1 3 Laboratory Tests Test 07/16/17 20:05 07/17/17 05:30 Miscellaneous Test 2 Pending Random Amikacin Level 32.1 MG/L White Blood Count 6.0 K/UL (4.8-10.8) Red Blood Count 3.14 M/UL (4.70-6.10) L Hemoglobin 10.2 G/DL (14.2-18.0) L Hematocrit 32.9 % (42.0-52.0) L Mean Corpuscular Volume 105 FL (80-99) H Mean Corpuscular Hemoglobin 32.5 PG (27.0-31.0) H Mean Corpuscular Hemoglobin Concent 31.0 G/DL (32.0-36.0) L Red Cell Distribution Width 15.9 % (11.6-14.8) H Platelet Count 85 K/UL (150-450) L Mean Platelet Volume 7.5 FL (6.5-10.1) Neutrophils (%) (Auto) % (45.0-75.0) Lymphocytes (%) (Auto) % (20.0-45.0) Monocytes (%) (Auto) % (1.0-10.0) Eosinophils (%) (Auto) % (0.0-3.0) Basophils (%) (Auto) % (0.0-2.0) Differential Total Cells Counted 100 Neutrophils % (Manual) 60 % (45-75) Lymphocytes % (Manual) 15 % (20-45) L Monocytes % (Manual) 16 % (1-10) H Eosinophils % (Manual) 7 % (0-3) H Basophils % (Manual) 2 % (0-2) Band Neutrophils 0 % (0-8) Platelet Estimate Decreased L Platelet Morphology Normal Anisocytosis 1+ Sodium Level 138 MMOL/L (136-145) Potassium Level 4.7 MMOL/L (3.5-5.1) Chloride Level 98 MMOL/L (98-107) Carbon Dioxide Level 29 MMOL/L (21-32) Anion Gap 11 mmol/L (5-15) Blood Urea Nitrogen 59 mg/dL (7-18) H Creatinine 11.5 MG/DL (0.55-1.30) H Estimat Glomerular Filtration Rate 5.6 mL/min (>60) Glucose Level 88 MG/DL (74-106) Calcium Level 8.8 MG/DL (8.5-10.1) PRECIOUS GARCIA Jul 17, 2017 19:04
[2017-07-17 20:00] VITALS: BP 123/49
[2017-07-17] MEDS: Dyna-Hex 2% Top Sol 2oz TOPIC SCH (20:26)
--- NOTE | 2017-07-17 20:46 | General Progress Note ---
Assessment/Plan Assessment/Plan #. Left leg dvt --> acute onset, will need to review final duplex results --> on apixaban daily x 3 months, low h/h will need to monitor closely --> okay to change to different anticoagulant if renal clearance an issue --> If h/h downtrends below 7.5, consider ivc filter placement. --> Hemoglobin currently >7.5 #. Anemia secondary to chronic disease. --> Hemoglobin levels have been stable. No blood transfusion required at this time. --> S/P abd CAT scan revealing evidence of hepatic cirrhosis. --> Continue to closely monitor and trend cbc daily. --> Anemia workup completed and reviewed. Iron 42, TIBC 180, Ferritin 593, B12 876. --> Ferritin is >500, hgb goal is >7 --> Anemia w/u has been reviewed --> ++Occult blood. Consider GI Services and Recs. #. Thrombocytopenia. --> Hepatitis C ab ++, PCR - --> Monitor platelet level. Transfuse if platelet count <20k --> Levels improving. Continue to trend daily. # Hepatosplenomegaly. Ascites. There is also evidence of generalized anasarca, with pleural fluid and generalized subcutaneous edema --> Abd pain improved on pain management --> Refer to surgery note. #. Anemia of kidney disease --> HD as needed per nephrology team --> Monitor closely. --> Does not require iron at this time #. Generalized body ache related to fluid overload. #. End-stage renal disease, on hemodialysis as needed --> On hemodialysis #. Respiratory failure due to CHF and pneumonia. --> Providencia and pseudomonas. --> On vancomycin and ethambutol per ID. --> Chest pain improved at this time, on pain management. #. Shortness of breath. Due to underlying pneumonia. #. Atrial flutter with rapid ventricular response. On metoprolol and diltiazem. #. Conjunctivitis. Begin tobramycin. Subjective Date patient seen: Jul 16, 2017 Constitutional: Denies: no symptoms, chills, diaphoresis, fever, malaise, weakness, other HEENT: Denies: no symptoms, eye pain, blurred vision, tearing, double vision, ear pain, ear discharge, nose pain, nose congestion, throat pain, throat swelling, mouth pain, mouth swelling, other Cardiovascular: Denies: no symptoms, chest pain, edema, irregular heart rate, lightheadedness, palpitations, syncope, other Respiratory: Denies: no symptoms, cough, orthopnea, shortness of breath, SOB with excertion, SOB at rest, sputum, stridor, wheezing, other Gastrointestinal/Abdominal: Denies: no symptoms, abdomen distended, abdominal pain, black stools, tarry stools, blood in stool, constipated, diarrhea, difficulty swallowing, nausea, poor appetite, poor fluid intake, rectal bleeding , vomiting, other Genitourinary: Denies: no symptoms, burning, discharge, frequency, flank pain, hematuria, incontinence, pain, urgency, other Neurologic/Psychiatric: Denies: no symptoms, anxiety, depressed, emotional problems, headache, numbness, paresthesia, pre-existing deficit, seizure, tingling, tremors, weakness, other Hematologic/Lymphatic: Reports: anemia Allergies: Coded Allergies: IODINE AND IODIDE CONTAINING PRODUC (Verified Allergy, Mild, itching and pruritis, 06/25/17) Uncoded Allergies: CONTRAST/DYE (Allergy, Intermediate, PRURITIS AND ITCHING, 06/25/17) Subjective On pain management. No new events. On multiple abx and anticoag. Objective Last 24 Hour Vital Signs Date Time Temp Pulse Resp B/P (MAP) Pulse Ox O2 Delivery O2 Flow Rate FiO2 07/17/17 20:27 123/49 07/17/17 20:26 81 123/49 07/17/17 20:00 97.9 81 22 123/49 92 Nasal Cannula 97.9 07/17/17 18:13 98.0 07/17/17 17:43 98.0 07/17/17 17:43 63 124/63 07/17/17 16:00 98.0 63 20 124/63 99 98.0 07/17/17 12:26 97.7 07/17/17 12:26 74 125/65 07/17/17 12:00 97.7 74 20 125/65 97 Nasal Cannula 2.0 97.7 07/17/17 08:32 98.8 07/17/17 08:17 106/61 07/17/17 08:16 74 106/61 07/17/17 08:06 Nasal Cannula 2.0 28 07/17/17 08:06 72 18 Nasal Cannula 2.0 28 07/17/17 08:06 94 Nasal Cannula 2.0 28 07/17/17 08:00 98.2 20 106/61 91 Nasal Cannula 2.0 98.2 07/17/17 06:20 79 115/70 07/17/17 04:00 98.8 20 115/70 65 Nasal Cannula 98.8 07/17/17 00:10 79 124/61 07/17/17 00:00 98.6 79 20 124/61 91 Nasal Cannula 98.6 07/16/17 20:55 73 126/73 07/16/17 20:55 126/73 Intake and Output 07/16/17 07/17/17 19:00 07:00 Intake Total 55 ml 450 ml Output Total 4000 ml Balance -3945 ml 450 ml Intake Oral 450 ml IV Total 55 ml Hemodialysis UF 4000 ml # Voids 2 1 # Bowel Movements 1 3 Laboratory Tests 07/17/17 05:30: White Blood Count 6.0, Red Blood Count 3.14L, Hemoglobin 10.2L, Hematocrit 32.9L , Mean Corpuscular Volume 105H, Mean Corpuscular Hemoglobin 32.5H, Mean Corpuscular Hemoglobin Concent 31.0L, Red Cell Distribution Width 15.9H, Platelet Count 85L, Mean Platelet Volume 7.5, Neutrophils (%) (Auto) , Lymphocytes (%) (Auto) , Monocytes (%) (Auto) , Eosinophils (%) (Auto) , Basophils (%) (Auto) , Differential Total Cells Counted 100, Neutrophils % ( Manual) 60, Lymphocytes % (Manual) 15L, Monocytes % (Manual) 16H, Eosinophils % (Manual) 7H, Basophils % (Manual) 2, Band Neutrophils 0, Platelet Estimate DecreasedL, Platelet Morphology Normal, Anisocytosis 1+, Sodium Level 138, Potassium Level 4.7, Chloride Level 98, Carbon Dioxide Level 29, Anion Gap 11, Blood Urea Nitrogen 59H, Creatinine 11.5H, Estimat Glomerular Filtration Rate 5.6, Glucose Level 88, Calcium Level 8.8 Height (Feet): 5 Height (Inches): 7.00 Weight (Pounds): 229 General Appearance: no apparent distress Respiratory/Chest: decreased breath sounds Irving Parker MD Jul 17, 2017 20:46
--- NOTE | 2017-07-17 21:53 | General Progress Note ---
Assessment/Plan Assessment/Plan Assessment - gallstones - abnormal LFT - suspect due to cirrhosis +/- meds - Periodic N/V with abnormal GB ultrasound, ? possibly biliary colic - patient declined HIDA - Anemia, multifactorial - OB (+) Stool - patient declined EGD/Colon - ESRD/HD - DM - HTN - COPD - Cavitary lung disease - Thrombocytopenia - cirrhotic appearing liver on CT - Hepatitis C Ab (+)/ PCR (-) - Poor prognosis Recommendations - PO as tolerated - follow symptoms and exam - monitor LFT - avoid hepatotoxic meds - abx per ID - transfuse PRN - Acid blockade Subjective Allergies: Coded Allergies: IODINE AND IODIDE CONTAINING PRODUC (Verified Allergy, Mild, itching and pruritis, 06/25/17) Uncoded Allergies: CONTRAST/DYE (Allergy, Intermediate, PRURITIS AND ITCHING, 06/25/17) Subjective above noted tolerating PO no vomiting sleepy Objective Last 24 Hour Vital Signs Date Time Temp Pulse Resp B/P (MAP) Pulse Ox O2 Delivery O2 Flow Rate FiO2 07/17/17 20:27 123/49 07/17/17 20:26 81 123/49 07/17/17 20:00 97.9 81 22 123/49 92 Nasal Cannula 97.9 07/17/17 19:30 Nasal Cannula 2.0 28 07/17/17 19:30 80 18 Nasal Cannula 2.0 28 07/17/17 19:30 92 Nasal Cannula 2.0 28 07/17/17 18:13 98.0 07/17/17 17:43 98.0 07/17/17 17:43 63 124/63 07/17/17 16:00 98.0 63 20 124/63 99 98.0 07/17/17 12:26 97.7 07/17/17 12:26 74 125/65 07/17/17 12:00 97.7 74 20 125/65 97 Nasal Cannula 2.0 97.7 07/17/17 08:32 98.8 07/17/17 08:17 106/61 07/17/17 08:16 74 106/61 07/17/17 08:06 Nasal Cannula 2.0 28 07/17/17 08:06 72 18 Nasal Cannula 2.0 28 07/17/17 08:06 94 Nasal Cannula 2.0 28 07/17/17 08:00 98.2 20 106/61 91 Nasal Cannula 2.0 98.2 07/17/17 06:20 79 115/70 07/17/17 04:00 98.8 20 115/70 65 Nasal Cannula 98.8 07/17/17 00:10 79 124/61 07/17/17 00:00 98.6 79 20 124/61 91 Nasal Cannula 98.6 Intake and Output 07/16/17 07/17/17 19:00 07:00 Intake Total 55 ml 450 ml Output Total 4000 ml Balance -3945 ml 450 ml Intake Oral 450 ml IV Total 55 ml Hemodialysis UF 4000 ml # Voids 2 1 # Bowel Movements 1 3 Laboratory Tests 07/17/17 05:30: White Blood Count 6.0, Red Blood Count 3.14L, Hemoglobin 10.2L, Hematocrit 32.9L , Mean Corpuscular Volume 105H, Mean Corpuscular Hemoglobin 32.5H, Mean Corpuscular Hemoglobin Concent 31.0L, Red Cell Distribution Width 15.9H, Platelet Count 85L, Mean Platelet Volume 7.5, Neutrophils (%) (Auto) , Lymphocytes (%) (Auto) , Monocytes (%) (Auto) , Eosinophils (%) (Auto) , Basophils (%) (Auto) , Differential Total Cells Counted 100, Neutrophils % ( Manual) 60, Lymphocytes % (Manual) 15L, Monocytes % (Manual) 16H, Eosinophils % (Manual) 7H, Basophils % (Manual) 2, Band Neutrophils 0, Platelet Estimate DecreasedL, Platelet Morphology Normal, Anisocytosis 1+, Sodium Level 138, Potassium Level 4.7, Chloride Level 98, Carbon Dioxide Level 29, Anion Gap 11, Blood Urea Nitrogen 59H, Creatinine 11.5H, Estimat Glomerular Filtration Rate 5.6, Glucose Level 88, Calcium Level 8.8 Height (Feet): 5 Height (Inches): 7.00 Weight (Pounds): 229 Objective WDWN AA Man NCAT supple CTA RRR Soft mildly distended, (+) improved RUQ TTP, (+) trunk edema (+) leg edema PERCY JOYNER Jul 17, 2017 21:53
[2017-07-18] VITALS (8 sets, daily range): BP systolic 100–142; BP diastolic 58–83
[2017-07-18] MEDS: Clindamycin 150mg cap ORAL SCH ×5 (00:16→23:31)
[2017-07-18] MEDS: dilTIAZem HCl 30mg tab ORAL SCH ×5 (05:52→23:29)
[2017-07-18 07:52] LABS: HEMATOCRIT 31.4 % (42.0-52.0); HEMOGLOBIN 9.8 G/DL (14.2-18.0); MEAN CORPUSCULAR VOLUME 105 FL (80-99); PLATELET COUNT 78 K/UL (150-450); RED CELL DISTRIBUTION WIDTH 15.9 % (11.6-14.8); WHITE BLOOD COUNT 5.6 K/UL (4.8-10.8)
[2017-07-18 08:06] LABS: ANION GAP 11 mmol/L (5-15); BLOOD UREA NITROGEN 68 mg/dL (7-18); CALCIUM 8.7 MG/DL (8.5-10.1); CARBON DIOXIDE 30 MMOL/L (21-32); CHLORIDE 98 MMOL/L (98-107); CREATININE 12.7 MG/DL (0.55-1.30); SODIUM 139 MMOL/L (136-145)
[2017-07-18] MEDS: Lisinopril 20mg tab ORAL SCH ×2 (09:00→21:05)
[2017-07-18] MEDS: Eliquis 2.5mg tablet ORAL SCH ×2 (09:50→21:06)
[2017-07-18] MEDS: Docusate 100mg cap ORAL SCH ×2 (09:50→12:52)
--- NOTE | 2017-07-18 10:38 | Nephrology Progress Note ---
Assessment/Plan Problem List: (1) ESRD (end stage renal disease) on dialysis (2) Shortness of breath (3) Anemia Assessment Anemia ESRD , missed HD on admission , admitted with high K and pulmonary edema Acute respiratory distress due to volume overload elevated troponin r/o ACS h/o COPD ? exacerbation HTN urgency Cardiomyopathy L AICD anemia of chronic kidney disease Hx of CVA Plan Plan: HD next 07/18- will care for high K with HD Max UF Transfused Phos binders BP meds adjustment Optimize cardiac status per orders Subjective ROS Limited/Unobtainable: No Constitutional: Reports: malaise Objective Objective Last 24 Hour Vital Signs Date Time Temp Pulse Resp B/P (MAP) Pulse Ox O2 Delivery O2 Flow Rate FiO2 07/18/17 09:51 98.0 07/18/17 09:00 117/79 07/18/17 08:00 98.0 74 18 117/79 90 Nasal Cannula 2.0 98.0 07/18/17 05:52 72 118/71 07/18/17 04:00 98.2 72 20 118/71 92 Nasal Cannula 98.2 07/18/17 00:00 Nasal Cannula 2.0 07/18/17 00:00 69 100/58 07/18/17 00:00 98.1 69 20 100/58 100 Nasal Cannula 98.1 07/17/17 20:27 123/49 07/17/17 20:26 81 123/49 07/17/17 20:00 97.9 81 22 123/49 92 Nasal Cannula 97.9 07/17/17 20:00 Nasal Cannula 2.0 07/17/17 19:30 Nasal Cannula 2.0 28 07/17/17 19:30 80 18 Nasal Cannula 2.0 28 07/17/17 19:30 92 Nasal Cannula 2.0 28 07/17/17 18:13 98.0 07/17/17 17:43 98.0 07/17/17 17:43 63 124/63 07/17/17 16:00 98.0 63 20 124/63 99 98.0 07/17/17 12:26 97.7 07/17/17 12:26 74 125/65 07/17/17 12:00 97.7 74 20 125/65 97 Nasal Cannula 2.0 97.7 Intake and Output 07/17/17 07/18/17 19:00 07:00 Intake Total 260 ml 160 ml Output Total 0 ml Balance 260 ml 160 ml Intake Oral 260 ml 160 ml Output Urine Total 0 ml Laboratory Tests 07/18/17 06:15: White Blood Count 5.6, Red Blood Count 3.00L, Hemoglobin 9.8L, Hematocrit 31.4L , Mean Corpuscular Volume 105H, Mean Corpuscular Hemoglobin 32.5H, Mean Corpuscular Hemoglobin Concent 31.1L, Red Cell Distribution Width 15.9H, Platelet Count 78L, Mean Platelet Volume 7.8, Neutrophils (%) (Auto) , Lymphocytes (%) (Auto) , Monocytes (%) (Auto) , Eosinophils (%) (Auto) , Basophils (%) (Auto) , Differential Total Cells Counted 100, Neutrophils % ( Manual) 53, Lymphocytes % (Manual) 20, Monocytes % (Manual) 20H, Eosinophils % ( Manual) 7H, Basophils % (Manual) 0, Band Neutrophils 0, Platelet Estimate DecreasedL, Platelet Morphology Normal, Hypochromasia 1+, Anisocytosis 1+, Macrocytosis 1+, Sodium Level 139, Potassium Level 5.0, Chloride Level 98, Carbon Dioxide Level 30, Anion Gap 11, Blood Urea Nitrogen 68H, Creatinine 12.7H , Estimat Glomerular Filtration Rate 5.0, Glucose Level 88, Calcium Level 8.7 Height (Feet): 5 Height (Inches): 7.00 Weight (Pounds): 228 General Appearance: no apparent distress Cardiovascular: normal rate Respiratory/Chest: decreased breath sounds Objective no change LIAM MONTELONGO Jul 18, 2017 10:38
--- NOTE | 2017-07-18 11:12 | Infectious Diseases Prog Note ---
Assessment/Plan Assessment/Plan Cavitary PNA. SCx: Neg ( m/l necrotizing Pneum, vs anaerobic abscess, doubt TB or fungal ) ; improving - 07/09 SP BAL Cx( Abby and MOJGAN : Colonizers ) , Path : Neg for fungus and Malignancy - -CT 07/15 : he overall lesion appears smaller, measuring 6.3 cm AP by 3.6 cm transverse by 2.3 cm craniocaudad currently -CT chest 06/25: Since the prior study of 06/15/2017, and. From further reduction in size of previously demonstrated thick walled right upper lobe cavitary mass. This was previously thought to most likely represent a cavitary inflammatory mass, and the interim reduction in size certainly supports that. Much less likely a cavitary neoplasm, but follow-up to resolution is recommended. Markedly improved parenchymal disease bilaterally, since the previous study. Nonetheless , extensive atelectasis and groundglass consolidation persists. Persistent small right pleural effusion, smaller than on the prior study. Resolved left pleural effusion 6 mm nodular opacity in the right upper lobe, not evident previously but likely obscured by surrounding consolidated lung parenchyma. This should be followed up in 6 months to one year depending on results of interim follow-up exams T-SPOT :Neg AFB x 3 : Neg MTB PCR x2 : neg cryptococcus Ag, Histoplams mycelial Ab , Blastomyces ab : neg ; histoplasma yeast ab (not able to be done due to anticomplementary activity) -Cocci, Asp ag p -Fungitell + 144 (?aspergillosis vs m/l false positive) CT chest 06/15: Slightly smaller (6 cm diameter ) but mostly unchanged cavitary lesion in the right lung, previously thought to represent a cavitating inflammatory process. Lung abscess is certainly a possibility. Fairly extensive bilateral pulmonary parenchymal consolidation, slightly increased from previous exam of 06/05/2017. Likely a combination of pulmonary edema and pneumonia. Small right and trace left pleural effusion, new/increased from the previous study. CT 06/05: 7.8 x 5.3 x 6.6 cm dense opacity in the posterior inferior right upper lobe with a central cavitation. CRP 14 Influenza negative Coccidioidal ,Galactomannan : NEG ( PER LAB ) Transaminitis , improving after stopping rifampin /2 Hep C cirrhosis- no active Hep C as VL not detected -CT abd/p: Evidence of hepatic cirrhosis. Hepatosplenomegaly. evidence of generalized anasarca, with pleural fluid and generalized subcutaneous edema. Cholelithiasis, also previously reported. Possible diverticulosis. No evidence of diverticulitis US Abd : Cholelithiasis. There is gallbladder wall thickening, likely related to hemodynamic abnormalities Splenomegaly. Evidence of hepatic cirrhosis HIV : NEG Hep Panel B neg , C Ab : +ve , VL not detected leukopenia and TCP 2/2 splenomegaly Seizure disorder History of CVA History of pacemaker placement Hyperlipidemia Hypertension COPD/asthma End-stage renal disease, on hemodialysis Diabetes Anxiety Anemia Echo, ejection fraction 45% to 50%. PLAN: - Cont oral Clinda d# 3 ( till resolution of of abscess) ( abx d# 44 ) Continue empiric Ethambutol and Levaquin, Amikacin ( empiric TB AB Rx d# 32 as per TB control request, this was TB control , still insists to [facility] w TB regiment till final cultures are back ) 07/16 SP DC Zoysn d# 9 ( for SOB and CXR worsen , better coverage of anaerobes, PSA and Providencia ); 07/07 SP Dc Flagyl 07/06 SP Voriconazole ( low antonio for fungal infection , and in the setting of cirrhosis ) 07/05 SP Micafungin abx d#20 , Rifampin 600mg qd #10 07/01 SP Ceftriaxone #10 06/28 SP Amikacin #15 06/25 SP PO Voriconazole #3 06/20 SP Liposomal Ampho #8 06/17 SP IV Vancomycin #14, Meropenem #5 06/13 SP Zosyn d# 10 3 SP Zithromax D# 6 f/u sputum culture (fungal, and AFB x3). BAL fungal and AFB Cx : P - CMP called Micro lab to follow on the Culture results ( AFB ) called IP to [facility] TB control re sopping TB Meds Subjective Allergies: Coded Allergies: IODINE AND IODIDE CONTAINING PRODUC (Verified Allergy, Mild, itching and pruritis, 06/25/17) Uncoded Allergies: CONTRAST/DYE (Allergy, Intermediate, PRURITIS AND ITCHING, 06/25/17) Subjective comfortable Objective Vital Signs Last 24 Hour Vital Signs Date Time Temp Pulse Resp B/P (MAP) Pulse Ox O2 Delivery O2 Flow Rate FiO2 07/18/17 09:51 98.0 07/18/17 09:00 117/79 07/18/17 08:00 98.0 74 18 117/79 90 Nasal Cannula 2.0 98.0 07/18/17 05:52 72 118/71 07/18/17 04:00 98.2 72 20 118/71 92 Nasal Cannula 98.2 07/18/17 00:00 Nasal Cannula 2.0 07/18/17 00:00 69 100/58 07/18/17 00:00 98.1 69 20 100/58 100 Nasal Cannula 98.1 07/17/17 20:27 123/49 07/17/17 20:26 81 123/49 07/17/17 20:00 97.9 81 22 123/49 92 Nasal Cannula 97.9 07/17/17 20:00 Nasal Cannula 2.0 07/17/17 19:30 Nasal Cannula 2.0 28 07/17/17 19:30 80 18 Nasal Cannula 2.0 28 07/17/17 19:30 92 Nasal Cannula 2.0 28 07/17/17 18:13 98.0 07/17/17 17:43 98.0 07/17/17 17:43 63 124/63 07/17/17 16:00 98.0 63 20 124/63 99 98.0 07/17/17 12:26 97.7 07/17/17 12:26 74 125/65 07/17/17 12:00 97.7 74 20 125/65 97 Nasal Cannula 2.0 97.7 Height (Feet): 5 Height (Inches): 7.00 Weight (Pounds): 228 HEENT: anicteric Respiratory/Chest: normal breath sounds Cardiovascular: normal rate Abdomen: no organomegaly Laboratory Tests Test 07/18/17 06:15 White Blood Count 5.6 K/UL (4.8-10.8) Red Blood Count 3.00 M/UL (4.70-6.10) L Hemoglobin 9.8 G/DL (14.2-18.0) L Hematocrit 31.4 % (42.0-52.0) L Mean Corpuscular Volume 105 FL (80-99) H Mean Corpuscular Hemoglobin 32.5 PG (27.0-31.0) H Mean Corpuscular Hemoglobin Concent 31.1 G/DL (32.0-36.0) L Red Cell Distribution Width 15.9 % (11.6-14.8) H Platelet Count 78 K/UL (150-450) L Mean Platelet Volume 7.8 FL (6.5-10.1) Neutrophils (%) (Auto) % (45.0-75.0) Lymphocytes (%) (Auto) % (20.0-45.0) Monocytes (%) (Auto) % (1.0-10.0) Eosinophils (%) (Auto) % (0.0-3.0) Basophils (%) (Auto) % (0.0-2.0) Differential Total Cells Counted 100 Neutrophils % (Manual) 53 % (45-75) Lymphocytes % (Manual) 20 % (20-45) Monocytes % (Manual) 20 % (1-10) H Eosinophils % (Manual) 7 % (0-3) H Basophils % (Manual) 0 % (0-2) Band Neutrophils 0 % (0-8) Platelet Estimate Decreased L Platelet Morphology Normal Hypochromasia 1+ Anisocytosis 1+ Macrocytosis 1+ Sodium Level 139 MMOL/L (136-145) Potassium Level 5.0 MMOL/L (3.5-5.1) Chloride Level 98 MMOL/L (98-107) Carbon Dioxide Level 30 MMOL/L (21-32) Anion Gap 11 mmol/L (5-15) Blood Urea Nitrogen 68 mg/dL (7-18) H Creatinine 12.7 MG/DL (0.55-1.30) H Estimat Glomerular Filtration Rate 5.0 mL/min (>60) Glucose Level 88 MG/DL (74-106) Calcium Level 8.7 MG/DL (8.5-10.1) Current Medications Medications (Trade) Dose Ordered Sig/Jose Route PRN Reason Start Time Stop Time Status Last Admin Dose Admin Alprazolam (Xanax) 2 mg DAILYPRN PRN ORAL For Anxiety 07/16/17 15:15 07/23/17 15:14 07/17/17 14:57 Amikacin Protocol (Amikacin pharmacy to dose) 1 ea DAILY PRN MISC Per rx protocol 07/16/17 09:00 08/03/17 15:14 Amikacin Sulfate 800 mg/Dextrose 113.2 ml @ 226.4 mls/ hr MON-WED-FRI IV 07/18/17 21:00 07/25/17 20:59 Apixaban (Eliquis) 2.5 mg Q12HR ORAL 07/16/17 09:00 08/15/17 08:59 07/18/17 09:50 Chlorhexidine Gluconate (Mireille-Hex 2%) 1 applic DAILY@1999 TOPIC 07/15/17 20:00 08/02/17 19:59 07/17/17 20:26 Clindamycin HCl (Cleocin) 450 mg EVERY 6 HOURS ORAL 07/16/17 18:00 07/23/17 17:59 07/18/17 05:52 Clonidine HCl (Catapres Tab) 0.1 mg Q4H PRN ORAL bp over 160 syst 07/15/17 19:30 07/19/17 11:29 Dextrose (Dextrose 50%) 25 ml STAT PRN IV HYPOGLYCEMIA 07/16/17 08:30 08/08/17 08:29 Diltiazem HCl (Cardizem) 30 mg EVERY 6 HOURS ORAL 07/16/17 00:00 08/09/17 19:29 07/18/17 05:52 Docusate Sodium (Colace) 100 mg THREE TIMES A DAY ORAL 07/16/17 09:00 07/18/17 13:00 07/18/17 09:50 Ethambutol HCl (Myambutol) 1,000 mg 3XW ORAL 07/16/17 09:00 07/21/17 23:59 07/16/17 08:16 Hydromorphone HCl (Dilaudid) 2 mg Q4H PRN IVP Severe Pain (Pain Scale 7-10) 07/16/17 21:15 07/23/17 21:14 07/18/17 09:51 Levofloxacin (Levaquin) 750 mg EVERY OTHER DAY@1999 ORAL 07/15/17 20:00 07/21/17 23:59 07/17/17 20:26 Lisinopril (Prinivil) 20 mg Q12HR ORAL 07/16/17 09:00 08/15/17 08:59 07/17/17 20:27 Metoprolol Tartrate (Lopressor) 100 mg Q12HR ORAL 07/15/17 21:00 08/10/17 20:59 07/17/17 20:26 Nitroglycerin (Ntg) 0.4 mg Q5M PRN SL Prn Chest Pain 07/15/17 19:20 07/19/17 11:29 Promethazine HCl/ Codeine (Phenergan with Codeine) 5 ml Q4H PRN ORAL For Cough 07/15/17 19:32 07/22/17 19:31 Cristofer Antunez MD Jul 18, 2017 11:12
--- NOTE | 2017-07-18 14:54 | Pulmonology Progress Note ---
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 on anti TB meds wtih IV Amikacin, ethambutol cxr in am BAL showing vre and Abby no need for Antitb medication dc planning Subjective ROS Limited/Unobtainable: No Constitutional: Reports: no symptoms HEENT: Repors: no symptoms Respiratory: Reports: no symptoms Allergies: Coded Allergies: IODINE AND IODIDE CONTAINING PRODUC (Verified Allergy, Mild, itching and pruritis, 06/25/17) Uncoded Allergies: CONTRAST/DYE (Allergy, Intermediate, PRURITIS AND ITCHING, 06/25/17) Objective Last 24 Hour Vital Signs Date Time Temp Pulse Resp B/P (MAP) Pulse Ox O2 Delivery O2 Flow Rate FiO2 07/18/17 14:06 97.9 07/18/17 12:52 72 115/78 07/18/17 12:00 97.9 72 18 115/78 93 Nasal Cannula 2.0 97.9 07/18/17 10:21 97.9 07/18/17 09:51 98.0 07/18/17 09:00 117/79 07/18/17 08:00 98.0 74 18 117/79 90 Nasal Cannula 2.0 98.0 07/18/17 05:52 72 118/71 07/18/17 04:00 98.2 72 20 118/71 92 Nasal Cannula 98.2 07/18/17 00:00 Nasal Cannula 2.0 07/18/17 00:00 69 100/58 07/18/17 00:00 98.1 69 20 100/58 100 Nasal Cannula 98.1 07/17/17 20:27 123/49 07/17/17 20:26 81 123/49 07/17/17 20:00 97.9 81 22 123/49 92 Nasal Cannula 97.9 07/17/17 20:00 Nasal Cannula 2.0 07/17/17 19:30 Nasal Cannula 2.0 28 07/17/17 19:30 80 18 Nasal Cannula 2.0 28 07/17/17 19:30 92 Nasal Cannula 2.0 28 07/17/17 17:43 98.0 07/17/17 17:43 63 124/63 07/17/17 16:00 98.0 63 20 124/63 99 98.0 Intake and Output 07/17/17 07/18/17 19:00 07:00 Intake Total 260 ml 160 ml Output Total 0 ml Balance 260 ml 160 ml Intake Oral 260 ml 160 ml Output Urine Total 0 ml Objective General Appearance: WD/WN HEENT: normocephalic, atraumatic, anicteric Respiratory/Chest: loud rhonchi Cardiovascular: normal peripheral pulses, normal rate, regular rhythm Abdomen: normal bowel sounds, soft, non tender, no organomegaly Genitourinary: normal external genitalia Extremities: no cyanosis Skin: no rash, no lesions Neurologic/Psychiatric: 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 executive 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, no motor/sensory deficits Lymphatic: no neck adenopathy, no groin adenopathy Laboratory Tests 07/18/17 06:15: White Blood Count 5.6, Red Blood Count 3.00L, Hemoglobin 9.8L, Hematocrit 31.4L , Mean Corpuscular Volume 105H, Mean Corpuscular Hemoglobin 32.5H, Mean Corpuscular Hemoglobin Concent 31.1L, Red Cell Distribution Width 15.9H, Platelet Count 78L, Mean Platelet Volume 7.8, Neutrophils (%) (Auto) , Lymphocytes (%) (Auto) , Monocytes (%) (Auto) , Eosinophils (%) (Auto) , Basophils (%) (Auto) , Differential Total Cells Counted 100, Neutrophils % ( Manual) 53, Lymphocytes % (Manual) 20, Monocytes % (Manual) 20H, Eosinophils % ( Manual) 7H, Basophils % (Manual) 0, Band Neutrophils 0, Platelet Estimate DecreasedL, Platelet Morphology Normal, Hypochromasia 1+, Anisocytosis 1+, Macrocytosis 1+, Sodium Level 139, Potassium Level 5.0, Chloride Level 98, Carbon Dioxide Level 30, Anion Gap 11, Blood Urea Nitrogen 68H, Creatinine 12.7H , Estimat Glomerular Filtration Rate 5.0, Glucose Level 88, Calcium Level 8.7 Current Medications Medications (Trade) Dose Ordered Sig/Jose Route PRN Reason Start Time Stop Time Status Last Admin Dose Admin Alprazolam (Xanax) 2 mg DAILYPRN PRN ORAL For Anxiety 07/16/17 15:15 07/23/17 15:14 07/17/17 14:57 Amikacin Protocol (Amikacin pharmacy to dose) 1 ea DAILY PRN MISC Per rx protocol 07/16/17 09:00 08/03/17 15:14 Amikacin Sulfate 800 mg/Dextrose 113.2 ml @ 226.4 mls/ hr FRI-FRI-FRI IV 07/18/17 21:00 07/25/17 20:59 Apixaban (Eliquis) 2.5 mg Q12HR ORAL 07/16/17 09:00 08/15/17 08:59 07/18/17 09:50 Carisoprodol (Soma) 350 mg Q6HR PRN ORAL Muscle Spasm 07/18/17 14:15 08/17/17 14:14 UNV Chlorhexidine Gluconate (Mireille-Hex 2%) 1 applic DAILY@1999 TOPIC 07/15/17 20:00 08/02/17 19:59 07/17/17 20:26 Clindamycin HCl (Cleocin) 450 mg EVERY 6 HOURS ORAL 07/16/17 18:00 07/23/17 17:59 07/18/17 12:53 Clonidine HCl (Catapres Tab) 0.1 mg Q4H PRN ORAL bp over 160 syst 07/15/17 19:30 07/19/17 11:29 Dextrose (Dextrose 50%) 25 ml STAT PRN IV HYPOGLYCEMIA 07/16/17 08:30 08/08/17 08:29 Diltiazem HCl (Cardizem) 30 mg EVERY 6 HOURS ORAL 07/16/17 00:00 08/09/17 19:29 07/18/17 12:52 Ethambutol HCl (Myambutol) 1,000 mg 3XW ORAL 07/16/17 09:00 07/21/17 23:59 07/16/17 08:16 Hydromorphone HCl (Dilaudid) 2 mg Q4H PRN IVP Severe Pain (Pain Scale 7-10) 07/16/17 21:15 07/23/17 21:14 07/18/17 14:06 Levofloxacin (Levaquin) 750 mg EVERY OTHER DAY@1999 ORAL 07/15/17 20:00 07/21/17 23:59 07/17/17 20:26 Lisinopril (Prinivil) 20 mg Q12HR ORAL 07/16/17 09:00 08/15/17 08:59 07/17/17 20:27 Metoprolol Tartrate (Lopressor) 100 mg Q12HR ORAL 07/15/17 21:00 08/10/17 20:59 07/17/17 20:26 Nitroglycerin (Ntg) 0.4 mg Q5M PRN SL Prn Chest Pain 07/15/17 19:20 07/19/17 11:29 Ondansetron HCl (Zofran) 4 mg Q6H PRN IVP Nausea & Vomiting 07/18/17 14:45 08/17/17 14:44 UNV Promethazine HCl/ Codeine (Phenergan with Codeine) 5 ml Q4H PRN ORAL For Cough 07/15/17 19:32 07/22/17 19:31 Christine Morgan MD Jul 18, 2017 14:54
[2017-07-18] MEDS: ALPRAZolam 0.5mg tab ORAL PRN (15:31)
--- NOTE | 2017-07-18 17:48 | Internal Med Progress Note ---
Subjective Date of Service: Jul 18, 2017 Physician Name Zoey Pires Attending Physician Chaitanya Weinstein MD Current Medications Medications (Trade) Dose Ordered Sig/Jose Route PRN Reason Start Time Stop Time Status Last Admin Dose Admin Alprazolam (Xanax) 2 mg DAILYPRN PRN ORAL For Anxiety 07/16/17 15:15 07/23/17 15:14 07/18/17 15:31 Amikacin Protocol (Amikacin pharmacy to dose) 1 ea DAILY PRN MISC Per rx protocol 07/16/17 09:00 08/03/17 15:14 Amikacin Sulfate 800 mg/Dextrose 113.2 ml @ 226.4 mls/ hr FRI-FRI-FRI IV 07/18/17 21:00 07/25/17 20:59 Apixaban (Eliquis) 2.5 mg Q12HR ORAL 07/16/17 09:00 08/15/17 08:59 07/18/17 09:50 Carisoprodol (Soma) 350 mg Q6H PRN ORAL Muscle Spasm 07/18/17 15:30 08/17/17 15:29 Chlorhexidine Gluconate (Mireille-Hex 2%) 1 applic DAILY@2000 TOPIC 07/15/17 20:00 08/02/17 19:59 07/17/17 20:26 Clindamycin HCl (Cleocin) 450 mg EVERY 6 HOURS ORAL 07/16/17 18:00 07/23/17 17:59 07/18/17 12:53 Clonidine HCl (Catapres Tab) 0.1 mg Q4H PRN ORAL bp over 160 syst 07/15/17 19:30 07/19/17 11:29 Dextrose (Dextrose 50%) 25 ml STAT PRN IV HYPOGLYCEMIA 07/16/17 08:30 08/08/17 08:29 Diltiazem HCl (Cardizem) 30 mg EVERY 6 HOURS ORAL 07/16/17 00:00 08/09/17 19:29 07/18/17 12:52 Ethambutol HCl (Myambutol) 1,000 mg 3XW ORAL 07/16/17 09:00 07/21/17 23:59 07/16/17 08:16 Hydromorphone HCl (Dilaudid) 2 mg Q4H PRN IVP Severe Pain (Pain Scale 7-10) 07/16/17 21:15 07/23/17 21:14 07/18/17 14:06 Levofloxacin (Levaquin) 750 mg EVERY OTHER DAY@1999 ORAL 07/15/17 20:00 07/21/17 23:59 07/17/17 20:26 Lisinopril (Prinivil) 20 mg Q12HR ORAL 07/16/17 09:00 08/15/17 08:59 07/17/17 20:27 Metoprolol Tartrate (Lopressor) 100 mg Q12HR ORAL 07/15/17 21:00 08/10/17 20:59 07/17/17 20:26 Nitroglycerin (Ntg) 0.4 mg Q5M PRN SL Prn Chest Pain 07/15/17 19:20 07/19/17 11:29 Ondansetron HCl (Zofran) 4 mg Q6H PRN IVP Nausea & Vomiting 07/18/17 15:30 08/17/17 15:29 Promethazine HCl/ Codeine (Phenergan with Codeine) 5 ml Q4H PRN ORAL For Cough 07/15/17 19:32 07/22/17 19:31 Allergies: Coded Allergies: IODINE AND IODIDE CONTAINING PRODUC (Verified Allergy, Mild, itching and pruritis, 06/25/17) Uncoded Allergies: CONTRAST/DYE (Allergy, Intermediate, PRURITIS AND ITCHING, 06/25/17) ROS Limited/Unobtainable: No Constitutional: Reports: no symptoms HEENT: Reports: no symptoms Cardiovascular: Reports: no symptoms Respiratory: Reports: no symptoms Gastrointestinal/Abdominal: Reports: no symptoms Genitourinary: Reports: no symptoms Neurologic/Psychiatric: Reports: no symptoms Subjective 57 YO M admitted with chest pain and shortness of breath. Now pneumonia and candelaria heart failure. Back on nasal canula. Cover for Int Misbah-Dr Weinstein. Now atrial flutter Objective Last Vital Signs Date Time Temp Pulse Resp B/P (MAP) Pulse Ox O2 Delivery O2 Flow Rate FiO2 07/18/17 16:05 75 18 Nasal Cannula 2.0 28 07/18/17 16:05 93 07/18/17 16:00 98.0 142/77 98.0 Laboratory Tests Test 07/18/17 06:15 White Blood Count 5.6 K/UL (4.8-10.8) Red Blood Count 3.00 M/UL (4.70-6.10) L Hemoglobin 9.8 G/DL (14.2-18.0) L Hematocrit 31.4 % (42.0-52.0) L Mean Corpuscular Volume 105 FL (80-99) H Mean Corpuscular Hemoglobin 32.5 PG (27.0-31.0) H Mean Corpuscular Hemoglobin Concent 31.1 G/DL (32.0-36.0) L Red Cell Distribution Width 15.9 % (11.6-14.8) H Platelet Count 78 K/UL (150-450) L Mean Platelet Volume 7.8 FL (6.5-10.1) Neutrophils (%) (Auto) % (45.0-75.0) Lymphocytes (%) (Auto) % (20.0-45.0) Monocytes (%) (Auto) % (1.0-10.0) Eosinophils (%) (Auto) % (0.0-3.0) Basophils (%) (Auto) % (0.0-2.0) Differential Total Cells Counted 100 Neutrophils % (Manual) 53 % (45-75) Lymphocytes % (Manual) 20 % (20-45) Monocytes % (Manual) 20 % (1-10) H Eosinophils % (Manual) 7 % (0-3) H Basophils % (Manual) 0 % (0-2) Band Neutrophils 0 % (0-8) Platelet Estimate Decreased L Platelet Morphology Normal Hypochromasia 1+ Anisocytosis 1+ Macrocytosis 1+ Sodium Level 139 MMOL/L (136-145) Potassium Level 5.0 MMOL/L (3.5-5.1) Chloride Level 98 MMOL/L (98-107) Carbon Dioxide Level 30 MMOL/L (21-32) Anion Gap 11 mmol/L (5-15) Blood Urea Nitrogen 68 mg/dL (7-18) H Creatinine 12.7 MG/DL (0.55-1.30) H Estimat Glomerular Filtration Rate 5.0 mL/min (>60) Glucose Level 88 MG/DL (74-106) Calcium Level 8.7 MG/DL (8.5-10.1) Intake and Output 07/17/17 07/18/17 19:00 07:00 Intake Total 260 ml 160 ml Output Total 0 ml Balance 260 ml 160 ml Intake Oral 260 ml 160 ml Output Urine Total 0 ml Objective General Appearance: WD/WN, alert, moderate distress EENT: PERRL/EOMI, normal ENT inspection Neck: non-tender, normal alignment, supple, normal inspection Cardiovascular: Tachycardia; normal peripheral pulses, normal rate, regular rhythm, no gallop/murmur, no JVD Respiratory/Chest: Nasal canula; respiratory distress, crackles/rales, rhonchi - bilaterally, expiratory wheezing Abdomen: normal bowel sounds, non tender, soft, no organomegaly, no mass Extremities: normal range of motion 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 (2) Respiratory failure Assessment & Plan: CHF and Pneumonia. Currently on nasal canula. See pulmonay note. (3) Pleuritic chest pain (4) Hemoptysis Assessment & Plan: Due to pneumonia (5) Pneumonia Assessment & Plan: Providencia and pseudamonas. RUL and cavitary. Concerning for TB. Await AFB cultures-see ID consult. Continue ethambutol, amikacin, levaquin and clindamycin per ID (6) Shortness of breath (7) ESRD (end stage renal disease) on dialysis Assessment & Plan: See nephrology note. Last Hemodialysis 07/14/17 per nephrology (8) Hyperkalemia Assessment & Plan: Due to renal failure. Hemodialysis 06/13/17 per nephrology (9) COPD (chronic obstructive pulmonary disease) (10) HTN (hypertension) Assessment & Plan: Continue coreg and lisinopril. (11) CHF (congestive heart failure) (12) Elevated troponin Assessment & Plan: ?due to renal failure? See cardiology note. (13) Intractable abdominal pain Assessment & Plan: See surgery note (14) Conjunctivitis Assessment & Plan: start tobramycin (15) Diarrhea Assessment & Plan: C. Diff Assessment/Plan Discharge planning - coordination with [facility] pending ZOEY PIRES Jul 18, 2017 17:48
--- NOTE | 2017-07-18 19:40 | Cardiology Progress Note ---
Assessment/Plan Assessment/Plan pleuritic chest pain neg recent sig perfusion abn; systolic dysfunction on mild degree involving the septum cavitating lung lesion improved on recent ct esrd htn anemia icd hx biotonix , interrogated 07/09/19 edema afib / atrial tachy thrombocytopenia iodine allergy remains in sinus plt low is on eliquis for stroke prevention venous duplex neg echo reviewed swma in septum (possible) as tech difficult study ef 45% afb smear neg ct noted icd interrogated no shock fucntion fine cxr much improved on higher volume of UF with dialysis still needs more fluid removed on acei Subjective Cardiovascular: Reports: no symptoms Objective Last 24 Hour Vital Signs Date Time Temp Pulse Resp B/P (MAP) Pulse Ox O2 Delivery O2 Flow Rate FiO2 07/18/17 18:19 Nasal Cannula 2.0 07/18/17 18:18 98.6 72 20 131/69 Nasal Cannula 2.0 98.6 07/18/17 18:13 98.0 07/18/17 18:12 75 142/77 07/18/17 16:05 75 18 Nasal Cannula 2.0 28 07/18/17 16:05 Nasal Cannula 2.0 28 07/18/17 16:05 93 Nasal Cannula 2.0 28 07/18/17 16:00 98.0 78 18 142/77 96 Nasal Cannula 2.0 98.0 07/18/17 14:36 97.9 07/18/17 14:30 98.0 72 20 132/81 Nasal Cannula 2.0 98.0 07/18/17 14:30 Nasal Cannula 2.0 07/18/17 14:06 97.9 07/18/17 12:52 72 115/78 07/18/17 12:00 97.9 72 18 115/78 93 Nasal Cannula 2.0 97.9 07/18/17 09:51 98.0 07/18/17 09:00 117/79 07/18/17 08:00 98.0 74 18 117/79 90 Nasal Cannula 2.0 98.0 07/18/17 05:52 72 118/71 07/18/17 04:00 98.2 72 20 118/71 92 Nasal Cannula 98.2 07/18/17 00:00 Nasal Cannula 2.0 07/18/17 00:00 69 100/58 07/18/17 00:00 98.1 69 20 100/58 100 Nasal Cannula 98.1 07/17/17 20:27 123/49 07/17/17 20:26 81 123/49 07/17/17 20:00 97.9 81 22 123/49 92 Nasal Cannula 97.9 07/17/17 20:00 Nasal Cannula 2.0 General Appearance: no apparent distress Intake and Output 07/17/17 07/18/17 19:00 07:00 Intake Total 260 ml 160 ml Output Total 0 ml Balance 260 ml 160 ml Intake Oral 260 ml 160 ml Output Urine Total 0 ml Laboratory Tests Test 07/18/17 06:15 White Blood Count 5.6 K/UL (4.8-10.8) Red Blood Count 3.00 M/UL (4.70-6.10) L Hemoglobin 9.8 G/DL (14.2-18.0) L Hematocrit 31.4 % (42.0-52.0) L Mean Corpuscular Volume 105 FL (80-99) H Mean Corpuscular Hemoglobin 32.5 PG (27.0-31.0) H Mean Corpuscular Hemoglobin Concent 31.1 G/DL (32.0-36.0) L Red Cell Distribution Width 15.9 % (11.6-14.8) H Platelet Count 78 K/UL (150-450) L Mean Platelet Volume 7.8 FL (6.5-10.1) Neutrophils (%) (Auto) % (45.0-75.0) Lymphocytes (%) (Auto) % (20.0-45.0) Monocytes (%) (Auto) % (1.0-10.0) Eosinophils (%) (Auto) % (0.0-3.0) Basophils (%) (Auto) % (0.0-2.0) Differential Total Cells Counted 100 Neutrophils % (Manual) 53 % (45-75) Lymphocytes % (Manual) 20 % (20-45) Monocytes % (Manual) 20 % (1-10) H Eosinophils % (Manual) 7 % (0-3) H Basophils % (Manual) 0 % (0-2) Band Neutrophils 0 % (0-8) Platelet Estimate Decreased L Platelet Morphology Normal Hypochromasia 1+ Anisocytosis 1+ Macrocytosis 1+ Sodium Level 139 MMOL/L (136-145) Potassium Level 5.0 MMOL/L (3.5-5.1) Chloride Level 98 MMOL/L (98-107) Carbon Dioxide Level 30 MMOL/L (21-32) Anion Gap 11 mmol/L (5-15) Blood Urea Nitrogen 68 mg/dL (7-18) H Creatinine 12.7 MG/DL (0.55-1.30) H Estimat Glomerular Filtration Rate 5.0 mL/min (>60) Glucose Level 88 MG/DL (74-106) Calcium Level 8.7 MG/DL (8.5-10.1) PRECIOUS GARCIA Jul 18, 2017 19:40
[2017-07-18] MEDS: Dyna-Hex 2% Top Sol 2oz TOPIC SCH (21:04)
--- NOTE | 2017-07-18 21:05 | General Progress Note ---
Assessment/Plan Assessment/Plan Assessment - gallstones - abnormal LFT - suspect due to cirrhosis +/- meds - Periodic N/V with abnormal GB ultrasound, ? possibly biliary colic - patient declined HIDA - Anemia, multifactorial - OB (+) Stool - patient declined EGD/Colon - ESRD/HD - DM - HTN - COPD - Cavitary lung disease - Thrombocytopenia - cirrhotic appearing liver on CT - Hepatitis C Ab (+)/ PCR (-) - Poor prognosis Recommendations - PO as tolerated - follow symptoms and exam - monitor LFT - avoid hepatotoxic meds - abx per ID - transfuse PRN - Acid blockade Subjective Allergies: Coded Allergies: IODINE AND IODIDE CONTAINING PRODUC (Verified Allergy, Mild, itching and pruritis, 06/25/17) Uncoded Allergies: CONTRAST/DYE (Allergy, Intermediate, PRURITIS AND ITCHING, 06/25/17) Subjective above noted tolerating PO no vomiting wants to go home Objective Last 24 Hour Vital Signs Date Time Temp Pulse Resp B/P (MAP) Pulse Ox O2 Delivery O2 Flow Rate FiO2 07/18/17 20:00 98.4 79 20 142/83 89 98.4 07/18/17 18:43 98.6 07/18/17 18:19 Nasal Cannula 2.0 07/18/17 18:18 98.6 72 20 131/69 Nasal Cannula 2.0 98.6 07/18/17 18:13 98.0 07/18/17 18:12 75 142/77 07/18/17 16:05 75 18 Nasal Cannula 2.0 28 07/18/17 16:05 Nasal Cannula 2.0 28 07/18/17 16:05 93 Nasal Cannula 2.0 28 07/18/17 16:00 98.0 78 18 142/77 96 Nasal Cannula 2.0 98.0 07/18/17 14:30 98.0 72 20 132/81 Nasal Cannula 2.0 98.0 07/18/17 14:30 Nasal Cannula 2.0 07/18/17 14:06 97.9 07/18/17 12:52 72 115/78 07/18/17 12:00 97.9 72 18 115/78 93 Nasal Cannula 2.0 97.9 07/18/17 09:51 98.0 07/18/17 09:00 117/79 07/18/17 08:00 98.0 74 18 117/79 90 Nasal Cannula 2.0 98.0 07/18/17 05:52 72 118/71 07/18/17 04:00 98.2 72 20 118/71 92 Nasal Cannula 98.2 07/18/17 00:00 Nasal Cannula 2.0 07/18/17 00:00 69 100/58 07/18/17 00:00 98.1 69 20 100/58 100 Nasal Cannula 98.1 Intake and Output 07/17/17 07/18/17 19:00 07:00 Intake Total 260 ml 160 ml Output Total 0 ml Balance 260 ml 160 ml Intake Oral 260 ml 160 ml Output Urine Total 0 ml Laboratory Tests 07/18/17 06:15: White Blood Count 5.6, Red Blood Count 3.00L, Hemoglobin 9.8L, Hematocrit 31.4L , Mean Corpuscular Volume 105H, Mean Corpuscular Hemoglobin 32.5H, Mean Corpuscular Hemoglobin Concent 31.1L, Red Cell Distribution Width 15.9H, Platelet Count 78L, Mean Platelet Volume 7.8, Neutrophils (%) (Auto) , Lymphocytes (%) (Auto) , Monocytes (%) (Auto) , Eosinophils (%) (Auto) , Basophils (%) (Auto) , Differential Total Cells Counted 100, Neutrophils % ( Manual) 53, Lymphocytes % (Manual) 20, Monocytes % (Manual) 20H, Eosinophils % ( Manual) 7H, Basophils % (Manual) 0, Band Neutrophils 0, Platelet Estimate DecreasedL, Platelet Morphology Normal, Hypochromasia 1+, Anisocytosis 1+, Macrocytosis 1+, Sodium Level 139, Potassium Level 5.0, Chloride Level 98, Carbon Dioxide Level 30, Anion Gap 11, Blood Urea Nitrogen 68H, Creatinine 12.7H , Estimat Glomerular Filtration Rate 5.0, Glucose Level 88, Calcium Level 8.7 Height (Feet): 5 Height (Inches): 7.00 Weight (Pounds): 228 Objective WDWN AA Man NCAT supple CTA RRR Soft mildly distended, (+) trunk edema (++) leg edema PERCY JOYNER Jul 18, 2017 21:05
[2017-07-18] MEDS: AMIKACIN IV SCH (21:06)
[2017-07-18] MEDS: D5W IV SCH (21:06)
--- NOTE | 2017-07-18 22:42 | General Progress Note ---
Assessment/Plan Assessment/Plan #. Left leg dvt --> acute onset, will need to review final duplex results --> on apixaban daily x 3 months, low h/h will need to monitor closely --> okay to change to different anticoagulant if renal clearance an issue --> If h/h downtrends below 7.5, consider ivc filter placement. --> Hemoglobin currently >7.5 #. Anemia secondary to chronic disease. --> Hemoglobin levels have been stable. No blood transfusion required at this time. --> S/P abd CAT scan revealing evidence of hepatic cirrhosis. --> Continue to closely monitor and trend cbc daily. --> Anemia workup completed and reviewed. Iron 42, TIBC 180, Ferritin 593, B12 876. --> Ferritin is >500, hgb goal is >7 --> Anemia w/u has been reviewed --> ++Occult blood. Consider GI Services and Recs. #. Thrombocytopenia. --> Hepatitis C ab ++, PCR - --> Monitor platelet level. Transfuse if platelet count <20k --> Levels remain low. # Hepatosplenomegaly. Ascites. There is also evidence of generalized anasarca, with pleural fluid and generalized subcutaneous edema --> Abd pain improved on pain management --> Refer to surgery note. #. Anemia of kidney disease --> HD as needed per nephrology team --> Monitor closely. --> Does not require iron at this time #. Generalized body ache related to fluid overload. #. End-stage renal disease, on hemodialysis as needed --> On hemodialysis #. Respiratory failure due to CHF and pneumonia. --> Providencia and pseudomonas. --> On vancomycin and ethambutol per ID. --> Chest pain improved at this time, on pain management. #. Shortness of breath. Due to underlying pneumonia. #. Atrial flutter with rapid ventricular response. On metoprolol and diltiazem. #. Conjunctivitis. Begin tobramycin. Subjective Date patient seen: Jul 17, 2017 Constitutional: Denies: no symptoms, chills, diaphoresis, fever, malaise, weakness, other HEENT: Denies: no symptoms, eye pain, blurred vision, tearing, double vision, ear pain, ear discharge, nose pain, nose congestion, throat pain, throat swelling, mouth pain, mouth swelling, other Cardiovascular: Denies: no symptoms, chest pain, edema, irregular heart rate, lightheadedness, palpitations, syncope, other Respiratory: Denies: no symptoms, cough, orthopnea, shortness of breath, SOB with excertion, SOB at rest, sputum, stridor, wheezing, other Gastrointestinal/Abdominal: Denies: no symptoms, abdomen distended, abdominal pain, black stools, tarry stools, blood in stool, constipated, diarrhea, difficulty swallowing, nausea, poor appetite, poor fluid intake, rectal bleeding , vomiting, other Genitourinary: Denies: no symptoms, burning, discharge, frequency, flank pain, hematuria, incontinence, pain, urgency, other Neurologic/Psychiatric: Denies: no symptoms, anxiety, depressed, emotional problems, headache, numbness, paresthesia, pre-existing deficit, seizure, tingling, tremors, weakness, other Hematologic/Lymphatic: Reports: anemia Allergies: Coded Allergies: IODINE AND IODIDE CONTAINING PRODUC (Verified Allergy, Mild, itching and pruritis, 06/25/17) Uncoded Allergies: CONTRAST/DYE (Allergy, Intermediate, PRURITIS AND ITCHING, 06/25/17) Subjective On pain control. Resting in bed. No new events. Objective Last 24 Hour Vital Signs Date Time Temp Pulse Resp B/P (MAP) Pulse Ox O2 Delivery O2 Flow Rate FiO2 07/18/17 21:05 79 142/83 07/18/17 21:05 142/83 07/18/17 20:00 98.4 79 20 142/83 89 98.4 07/18/17 18:43 98.6 07/18/17 18:19 Nasal Cannula 2.0 07/18/17 18:18 98.6 72 20 131/69 Nasal Cannula 2.0 98.6 07/18/17 18:13 98.0 07/18/17 18:12 75 142/77 07/18/17 16:05 75 18 Nasal Cannula 2.0 28 07/18/17 16:05 Nasal Cannula 2.0 28 07/18/17 16:05 93 Nasal Cannula 2.0 28 07/18/17 16:00 98.0 78 18 142/77 96 Nasal Cannula 2.0 98.0 07/18/17 14:30 98.0 72 20 132/81 Nasal Cannula 2.0 98.0 4/13/18 14:30 Nasal Cannula 2.0 07/18/17 14:06 97.9 07/18/17 12:52 72 115/78 07/18/17 12:00 97.9 72 18 115/78 93 Nasal Cannula 2.0 97.9 07/18/17 09:51 98.0 07/18/17 09:00 117/79 07/18/17 08:00 98.0 74 18 117/79 90 Nasal Cannula 2.0 98.0 07/18/17 05:52 72 118/71 07/18/17 04:00 98.2 72 20 118/71 92 Nasal Cannula 98.2 07/18/17 00:00 Nasal Cannula 2.0 07/18/17 00:00 69 100/58 07/18/17 00:00 98.1 69 20 100/58 100 Nasal Cannula 98.1 Intake and Output 07/17/17 07/18/17 19:00 07:00 Intake Total 260 ml 160 ml Output Total 0 ml Balance 260 ml 160 ml Intake Oral 260 ml 160 ml Output Urine Total 0 ml Laboratory Tests 07/18/17 06:15: White Blood Count 5.6, Red Blood Count 3.00L, Hemoglobin 9.8L, Hematocrit 31.4L , Mean Corpuscular Volume 105H, Mean Corpuscular Hemoglobin 32.5H, Mean Corpuscular Hemoglobin Concent 31.1L, Red Cell Distribution Width 15.9H, Platelet Count 78L, Mean Platelet Volume 7.8, Neutrophils (%) (Auto) , Lymphocytes (%) (Auto) , Monocytes (%) (Auto) , Eosinophils (%) (Auto) , Basophils (%) (Auto) , Differential Total Cells Counted 100, Neutrophils % ( Manual) 53, Lymphocytes % (Manual) 20, Monocytes % (Manual) 20H, Eosinophils % ( Manual) 7H, Basophils % (Manual) 0, Band Neutrophils 0, Platelet Estimate DecreasedL, Platelet Morphology Normal, Hypochromasia 1+, Anisocytosis 1+, Macrocytosis 1+, Sodium Level 139, Potassium Level 5.0, Chloride Level 98, Carbon Dioxide Level 30, Anion Gap 11, Blood Urea Nitrogen 68H, Creatinine 12.7H , Estimat Glomerular Filtration Rate 5.0, Glucose Level 88, Calcium Level 8.7 Height (Feet): 5 Height (Inches): 7.00 Weight (Pounds): 228 General Appearance: no apparent distress Respiratory/Chest: decreased breath sounds Irving Parker MD Jul 18, 2017 22:42
[2017-07-19] VITALS: BP 118/70
[2017-07-19 04:00] VITALS: BP 95/68
[2017-07-19 05:22] LABS: HEMATOCRIT 30.3 % (42.0-52.0); HEMOGLOBIN 9.8 G/DL (14.2-18.0); MEAN CORPUSCULAR VOLUME 104 FL (80-99); PLATELET COUNT 86 K/UL (150-450); RED BLOOD COUNT 2.91 M/UL (4.70-6.10); RED CELL DISTRIBUTION WIDTH 15.4 % (11.6-14.8); WHITE BLOOD COUNT 5.7 K/UL (4.8-10.8)
[2017-07-19 05:26] LABS: BASOPHILS % (AUTO) 1.2 % (0.0-2.0); EOSINOPHILS % (AUTO) 8.5 % (0.0-3.0); LYMPHOCYTES % (AUTO) 23.2 % (20.0-45.0); MONOCYTES % (AUTO) 17.4 % (1.0-10.0); NEUTROPHILS % (AUTO) 49.7 % (45.0-75.0)
[2017-07-19] MEDS: Clindamycin 150mg cap ORAL SCH ×3 (05:29→19:00)
[2017-07-19] MEDS: dilTIAZem HCl 30mg tab ORAL SCH ×3 (05:30→19:00)
[2017-07-19 05:57] LABS: ANION GAP 6 mmol/L (5-15); BLOOD UREA NITROGEN 55 mg/dL (7-18); CALCIUM 9.1 MG/DL (8.5-10.1); CARBON DIOXIDE 33 MMOL/L (21-32); CHLORIDE 100 MMOL/L (98-107); CREATININE 11.5 MG/DL (0.55-1.30); POTASSIUM 5.3 MMOL/L (3.5-5.1); SODIUM 139 MMOL/L (136-145)
[2017-07-19 08:00] VITALS: BP 141/59
[2017-07-19] MEDS: Lisinopril 20mg tab ORAL SCH ×2 (09:29→20:28)
[2017-07-19] MEDS: Eliquis 2.5mg tablet ORAL SCH ×2 (09:29→20:26)
--- NOTE | 2017-07-19 09:34 | Nephrology Progress Note ---
Assessment/Plan Problem List: (1) ESRD (end stage renal disease) on dialysis (2) Shortness of breath (3) Anemia Assessment Anemia ESRD , missed HD on admission , admitted with high K and pulmonary edema Acute respiratory distress due to volume overload elevated troponin r/o ACS h/o COPD ? exacerbation HTN urgency Cardiomyopathy L AICD anemia of chronic kidney disease Hx of CVA Plan Plan: HD next 07/21- will care for high K with HD Kayexelate for now Max UF Transfused Phos binders BP meds adjustment Optimize cardiac status per orders Subjective ROS Limited/Unobtainable: No Constitutional: Reports: malaise Objective Objective Last 24 Hour Vital Signs Date Time Temp Pulse Resp B/P (MAP) Pulse Ox O2 Delivery O2 Flow Rate FiO2 07/19/17 09:29 69 141/59 07/19/17 09:29 141/59 07/19/17 08:00 97.9 69 20 141/59 98 Nasal Cannula 2.0 97.9 07/19/17 07:27 Nasal Cannula 2.0 28 07/19/17 07:27 93 Nasal Cannula 2.0 28 07/19/17 07:27 85 20 Nasal Cannula 2.0 28 07/19/17 05:30 69 103/62 07/19/17 04:00 99.0 69 21 95/68 91 99.0 07/19/17 04:00 Nasal Cannula 2.0 07/19/17 00:00 98.2 69 18 118/70 92 Nasal Cannula 2.0 98.2 07/18/17 23:52 81 20 Nasal Cannula 2.0 28 07/18/17 23:52 94 Nasal Cannula 2.0 28 07/18/17 23:52 Nasal Cannula 2.0 28 07/18/17 23:29 69 118/70 07/18/17 21:05 79 142/83 07/18/17 21:05 142/83 07/18/17 20:00 98.4 79 20 142/83 89 98.4 07/18/17 18:43 98.6 07/18/17 18:19 Nasal Cannula 2.0 07/18/17 18:18 98.6 72 20 131/69 Nasal Cannula 2.0 98.6 07/18/17 18:13 98.0 07/18/17 18:12 75 142/77 4/13/18 16:05 75 18 Nasal Cannula 2.0 28 07/18/17 16:05 Nasal Cannula 2.0 28 07/18/17 16:05 93 Nasal Cannula 2.0 28 07/18/17 16:00 98.0 78 18 142/77 96 Nasal Cannula 2.0 98.0 07/18/17 14:30 98.0 72 20 132/81 Nasal Cannula 2.0 98.0 07/18/17 14:30 Nasal Cannula 2.0 07/18/17 14:06 97.9 07/18/17 12:52 72 115/78 07/18/17 12:00 97.9 72 18 115/78 93 Nasal Cannula 2.0 97.9 07/18/17 09:51 98.0 Intake and Output 07/18/17 07/19/17 19:00 07:00 Intake Total 200 ml Output Total 3850 ml Balance -3850 ml 200 ml Intake Oral 200 ml Hemodialysis UF 3850 ml Laboratory Tests 07/19/17 05:00: White Blood Count 5.7, Red Blood Count 2.91L, Hemoglobin 9.8L, Hematocrit 30.3L , Mean Corpuscular Volume 104H, Mean Corpuscular Hemoglobin 33.8H, Mean Corpuscular Hemoglobin Concent 32.4, Red Cell Distribution Width 15.4H, Platelet Count 86L, Mean Platelet Volume 8.1, Neutrophils (%) (Auto) 49.7, Lymphocytes (%) (Auto) 23.2, Monocytes (%) (Auto) 17.4H, Eosinophils (%) (Auto) 8.5H, Basophils (%) (Auto) 1.2, Sodium Level 139, Potassium Level 5.3H, Chloride Level 100, Carbon Dioxide Level 33H, Anion Gap 6, Blood Urea Nitrogen 55H, Creatinine 11.5H, Estimat Glomerular Filtration Rate 5.6, Glucose Level 89 , Calcium Level 9.1 Height (Feet): 5 Height (Inches): 7.00 Weight (Pounds): 228 General Appearance: no apparent distress Respiratory/Chest: accessory muscle use Abdomen: soft, distended Objective no change LIAM MONTELONGO Jul 19, 2017 09:34
[2017-07-19] MEDS ORDERED: Sodium Polystyrene Sulfonate 15gm Powder ORAL ONE (09:45)
[2017-07-19 12:00] VITALS: BP 147/58
--- NOTE | 2017-07-19 13:46 | Pulmonology Progress Note ---
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 prn on anti TB meds wtih IV Amikacin, ethambutol BAl showing vre and Abby no need for Antitb medication continue current meds dc planning Subjective ROS Limited/Unobtainable: No Constitutional: Reports: no symptoms HEENT: Repors: no symptoms Allergies: Coded Allergies: IODINE AND IODIDE CONTAINING PRODUC (Verified Allergy, Mild, itching and pruritis, 06/25/17) Uncoded Allergies: CONTRAST/DYE (Allergy, Intermediate, PRURITIS AND ITCHING, 06/25/17) All Systems: reviewed and negative except above Objective Last 24 Hour Vital Signs Date Time Temp Pulse Resp B/P (MAP) Pulse Ox O2 Delivery O2 Flow Rate FiO2 07/19/17 13:39 72 128/67 07/19/17 12:00 98.2 67 21 147/58 99 Nasal Cannula 2.0 98.2 07/19/17 09:29 69 141/59 07/19/17 09:29 141/59 07/19/17 08:00 97.9 69 20 141/59 98 Nasal Cannula 2.0 97.9 07/19/17 07:27 Nasal Cannula 2.0 28 07/19/17 07:27 93 Nasal Cannula 2.0 28 07/19/17 07:27 85 20 Nasal Cannula 2.0 28 07/19/17 05:30 69 103/62 07/19/17 04:00 99.0 69 21 95/68 91 99.0 07/19/17 04:00 Nasal Cannula 2.0 07/19/17 00:00 98.2 69 18 118/70 92 Nasal Cannula 2.0 98.2 07/18/17 23:52 81 20 Nasal Cannula 2.0 28 07/18/17 23:52 94 Nasal Cannula 2.0 28 07/18/17 23:52 Nasal Cannula 2.0 28 07/18/17 23:29 69 118/70 07/18/17 21:05 79 142/83 4/13/18 21:05 142/83 07/18/17 20:00 98.4 79 20 142/83 89 98.4 07/18/17 18:43 98.6 07/18/17 18:19 Nasal Cannula 2.0 07/18/17 18:18 98.6 72 20 131/69 Nasal Cannula 2.0 98.6 07/18/17 18:13 98.0 07/18/17 18:12 75 142/77 07/18/17 16:05 75 18 Nasal Cannula 2.0 28 07/18/17 16:05 Nasal Cannula 2.0 28 07/18/17 16:05 93 Nasal Cannula 2.0 28 07/18/17 16:00 98.0 78 18 142/77 96 Nasal Cannula 2.0 98.0 07/18/17 14:30 98.0 72 20 132/81 Nasal Cannula 2.0 98.0 07/18/17 14:30 Nasal Cannula 2.0 07/18/17 14:06 97.9 Intake and Output 07/18/17 07/19/17 19:00 07:00 Intake Total 200 ml Output Total 3850 ml Balance -3850 ml 200 ml Intake Oral 200 ml Hemodialysis UF 3850 ml Objective General Appearance: WD/WN HEENT: normocephalic, atraumatic, anicteric Respiratory/Chest: loud rhonchi Cardiovascular: normal peripheral pulses, normal rate, regular rhythm Abdomen: normal bowel sounds, soft, non tender, no organomegaly Genitourinary: normal external genitalia Extremities: no cyanosis Skin: no rash, no lesions Neurologic/Psychiatric: internship 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, no motor/sensory deficits Lymphatic: no neck adenopathy, no groin adenopathy Laboratory Tests 07/19/17 05:00: White Blood Count 5.7, Red Blood Count 2.91L, Hemoglobin 9.8L, Hematocrit 30.3L , Mean Corpuscular Volume 104H, Mean Corpuscular Hemoglobin 33.8H, Mean Corpuscular Hemoglobin Concent 32.4, Red Cell Distribution Width 15.4H, Platelet Count 86L, Mean Platelet Volume 8.1, Neutrophils (%) (Auto) 49.7, Lymphocytes (%) (Auto) 23.2, Monocytes (%) (Auto) 17.4H, Eosinophils (%) (Auto) 8.5H, Basophils (%) (Auto) 1.2, Sodium Level 139, Potassium Level 5.3H, Chloride Level 100, Carbon Dioxide Level 33H, Anion Gap 6, Blood Urea Nitrogen 55H, Creatinine 11.5H, Estimat Glomerular Filtration Rate 5.6, Glucose Level 89 , Calcium Level 9.1 Current Medications Medications (Trade) Dose Ordered Sig/Jose Route PRN Reason Start Time Stop Time Status Last Admin Dose Admin Alprazolam (Xanax) 2 mg DAILYPRN PRN ORAL For Anxiety 07/16/17 15:15 07/23/17 15:14 07/18/17 15:31 Amikacin Protocol (Amikacin pharmacy to dose) 1 ea DAILY PRN MISC Per rx protocol 07/16/17 09:00 08/03/17 15:14 Amikacin Sulfate 800 mg/Dextrose 113.2 ml @ 226.4 mls/ hr FRI-FRI-FRI IV 07/18/17 21:00 07/25/17 20:59 07/18/17 21:06 Apixaban (Eliquis) 2.5 mg Q12HR ORAL 07/16/17 09:00 08/15/17 08:59 07/19/17 09:29 Carisoprodol (Soma) 350 mg Q6H PRN ORAL Muscle Spasm 07/18/17 15:30 08/17/17 15:29 07/19/17 05:30 Chlorhexidine Gluconate (Mireille-Hex 2%) 1 applic DAILY@2000 TOPIC 07/15/17 20:00 08/02/17 19:59 07/18/17 21:04 Clindamycin HCl (Cleocin) 450 mg EVERY 6 HOURS ORAL 07/16/17 18:00 07/23/17 17:59 07/19/17 13:31 Dextrose (Dextrose 50%) 25 ml STAT PRN IV HYPOGLYCEMIA 07/16/17 08:30 08/08/17 08:29 Diltiazem HCl (Cardizem) 30 mg EVERY 6 HOURS ORAL 07/16/17 00:00 08/09/17 19:29 07/19/17 13:39 Ethambutol HCl (Myambutol) 1,000 mg 3XW ORAL 07/16/17 09:00 07/21/17 23:59 07/18/17 18:12 Hydromorphone HCl (Dilaudid) 2 mg Q4H PRN IVP Severe Pain (Pain Scale 7-10) 07/16/17 21:15 07/23/17 21:14 07/19/17 13:31 Levofloxacin (Levaquin) 750 mg EVERY OTHER DAY@1999 ORAL 07/15/17 20:00 07/21/17 23:59 07/17/17 20:26 Lisinopril (Prinivil) 20 mg Q12HR ORAL 07/16/17 09:00 08/15/17 08:59 07/19/17 09:29 Metoprolol Tartrate (Lopressor) 100 mg Q12HR ORAL 07/15/17 21:00 08/10/17 20:59 07/19/17 09:29 Ondansetron HCl (Zofran) 4 mg Q6H PRN IVP Nausea & Vomiting 07/18/17 15:30 08/17/17 15:29 07/19/17 06:35 Promethazine HCl/ Codeine (Phenergan with Codeine) 5 ml Q4H PRN ORAL For Cough 07/15/17 19:32 07/22/17 19:31 Christine Morgan MD Jul 19, 2017 13:46
--- NOTE | 2017-07-19 14:15 | Internal Med Progress Note ---
Subjective Date of Service: Jul 19, 2017 Physician Name Zoey Pires Attending Physician Chaitanya Weinstein MD Current Medications Medications (Trade) Dose Ordered Sig/Jose Route PRN Reason Start Time Stop Time Status Last Admin Dose Admin Alprazolam (Xanax) 2 mg DAILYPRN PRN ORAL For Anxiety 07/16/17 15:15 07/23/17 15:14 07/18/17 15:31 Amikacin Protocol (Amikacin pharmacy to dose) 1 ea DAILY PRN MISC Per rx protocol 07/16/17 09:00 08/03/17 15:14 Amikacin Sulfate 800 mg/Dextrose 113.2 ml @ 226.4 mls/ hr FRI-FRI-FRI IV 07/18/17 21:00 07/25/17 20:59 07/18/17 21:06 Apixaban (Eliquis) 2.5 mg Q12HR ORAL 07/16/17 09:00 08/15/17 08:59 07/19/17 09:29 Carisoprodol (Soma) 350 mg Q6H PRN ORAL Muscle Spasm 07/18/17 15:30 08/17/17 15:29 07/19/17 05:30 Chlorhexidine Gluconate (Mireille-Hex 2%) 1 applic DAILY@2000 TOPIC 07/15/17 20:00 08/02/17 19:59 07/18/17 21:04 Clindamycin HCl (Cleocin) 450 mg EVERY 6 HOURS ORAL 07/16/17 18:00 07/23/17 17:59 07/19/17 13:31 Dextrose (Dextrose 50%) 25 ml STAT PRN IV HYPOGLYCEMIA 07/16/17 08:30 08/08/17 08:29 Diltiazem HCl (Cardizem) 30 mg EVERY 6 HOURS ORAL 07/16/17 00:00 08/09/17 19:29 07/19/17 13:39 Ethambutol HCl (Myambutol) 1,000 mg 3XW ORAL 07/16/17 09:00 07/21/17 23:59 07/18/17 18:12 Hydromorphone HCl (Dilaudid) 2 mg Q4H PRN IVP Severe Pain (Pain Scale 7-10) 07/16/17 21:15 07/23/17 21:14 07/19/17 13:31 Levofloxacin (Levaquin) 750 mg EVERY OTHER DAY@1999 ORAL 07/15/17 20:00 07/21/17 23:59 07/17/17 20:26 Lisinopril (Prinivil) 20 mg Q12HR ORAL 07/16/17 09:00 08/15/17 08:59 07/19/17 09:29 Metoprolol Tartrate (Lopressor) 100 mg Q12HR ORAL 07/15/17 21:00 08/10/17 20:59 07/19/17 09:29 Ondansetron HCl (Zofran) 4 mg Q6H PRN IVP Nausea & Vomiting 07/18/17 15:30 08/17/17 15:29 07/19/17 06:35 Promethazine HCl/ Codeine (Phenergan with Codeine) 5 ml Q4H PRN ORAL For Cough 07/15/17 19:32 07/22/17 19:31 Allergies: Coded Allergies: IODINE AND IODIDE CONTAINING PRODUC (Verified Allergy, Mild, itching and pruritis, 06/25/17) Uncoded Allergies: CONTRAST/DYE (Allergy, Intermediate, PRURITIS AND ITCHING, 06/25/17) ROS Limited/Unobtainable: No Constitutional: Reports: no symptoms HEENT: Reports: no symptoms Cardiovascular: Reports: no symptoms Respiratory: Reports: no symptoms Gastrointestinal/Abdominal: Reports: no symptoms Genitourinary: Reports: no symptoms Neurologic/Psychiatric: Reports: no symptoms Subjective 57 YO M admitted with chest pain and shortness of breath. Now pneumonia and candelaria heart failure. Back on nasal canula. Cover for Int Misbah-Dr Weinstein. Now atrial flutter Objective Last Vital Signs Date Time Temp Pulse Resp B/P (MAP) Pulse Ox O2 Delivery O2 Flow Rate FiO2 07/19/17 13:39 72 128/67 07/19/17 12:00 98.2 21 99 Nasal Cannula 2.0 98.2 07/19/17 07:27 28 Laboratory Tests Test 07/19/17 05:00 White Blood Count 5.7 K/UL (4.8-10.8) Red Blood Count 2.91 M/UL (4.70-6.10) L Hemoglobin 9.8 G/DL (14.2-18.0) L Hematocrit 30.3 % (42.0-52.0) L Mean Corpuscular Volume 104 FL (80-99) H Mean Corpuscular Hemoglobin 33.8 PG (27.0-31.0) H Mean Corpuscular Hemoglobin Concent 32.4 G/DL (32.0-36.0) Red Cell Distribution Width 15.4 % (11.6-14.8) H Platelet Count 86 K/UL (150-450) L Mean Platelet Volume 8.1 FL (6.5-10.1) Neutrophils (%) (Auto) 49.7 % (45.0-75.0) Lymphocytes (%) (Auto) 23.2 % (20.0-45.0) Monocytes (%) (Auto) 17.4 % (1.0-10.0) H Eosinophils (%) (Auto) 8.5 % (0.0-3.0) H Basophils (%) (Auto) 1.2 % (0.0-2.0) Sodium Level 139 MMOL/L (136-145) Potassium Level 5.3 MMOL/L (3.5-5.1) H Chloride Level 100 MMOL/L (98-107) Carbon Dioxide Level 33 MMOL/L (21-32) H Anion Gap 6 mmol/L (5-15) Blood Urea Nitrogen 55 mg/dL (7-18) H Creatinine 11.5 MG/DL (0.55-1.30) H Estimat Glomerular Filtration Rate 5.6 mL/min (>60) Glucose Level 89 MG/DL (74-106) Calcium Level 9.1 MG/DL (8.5-10.1) Intake and Output 07/18/17 07/19/17 19:00 07:00 Intake Total 200 ml Output Total 3850 ml Balance -3850 ml 200 ml Intake Oral 200 ml Hemodialysis UF 3850 ml Objective General Appearance: WD/WN, alert, moderate distress EENT: PERRL/EOMI, normal ENT inspection Neck: non-tender, normal alignment, supple, normal inspection Cardiovascular: Tachycardia; normal peripheral pulses, normal rate, regular rhythm, no gallop/murmur, no JVD Respiratory/Chest: Nasal canula; respiratory distress, crackles/rales, rhonchi - bilaterally, expiratory wheezing Abdomen: normal bowel sounds, non tender, soft, no organomegaly, no mass Extremities: normal range of motion Neurologic: md pediatric allergist 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, no motor/sensory deficits Skin: normal pigmentation, warm/dry Assessment/Plan Problem List: (1) Atrial flutter with rapid ventricular response Assessment & Plan: D/C coreg; start metoprolol and IV diltiazem per cardiology consult. (2) Respiratory failure Assessment & Plan: CHF and Pneumonia. Currently on nasal canula. See pulmonay note. (3) Pleuritic chest pain (4) Hemoptysis Assessment & Plan: Due to pneumonia (5) Pneumonia Assessment & Plan: Providencia and pseudamonas. RUL and cavitary. Concerning for TB. Await AFB cultures-see ID consult. Continue ethambutol, amikacin, levaquin and clindamycin per ID (6) Shortness of breath (7) ESRD (end stage renal disease) on dialysis Assessment & Plan: See nephrology note. Next Hemodialysis 07/21/17 per nephrology (8) Hyperkalemia Assessment & Plan: Due to renal failure. Hemodialysis 06/13/17 per nephrology (9) COPD (chronic obstructive pulmonary disease) (10) HTN (hypertension) Assessment & Plan: Continue coreg and lisinopril. (11) CHF (congestive heart failure) (12) Elevated troponin Assessment & Plan: ?due to renal failure? See cardiology note. (13) Intractable abdominal pain Assessment & Plan: See surgery note (14) Conjunctivitis Assessment & Plan: start tobramycin (15) Diarrhea Assessment & Plan: C. Diff Status: stable Assessment/Plan Discharge planning - coordination with [facility] pending ZOEY PIRES Jul 19, 2017 14:15
--- NOTE | 2017-07-19 15:05 | Cardiology Progress Note ---
Assessment/Plan Problem List: (1) CHF (congestive heart failure) (2) COPD (chronic obstructive pulmonary disease) (3) HTN (hypertension) (4) Elevated troponin (5) Pneumonia (6) Respiratory failure (7) Atrial flutter with rapid ventricular response Status: stable, progressing Status Narrative Mr. Leslie is in stable SR clinically. He has not had further CP. Recent stress myoc perfusion scan was negative for ischemia. ECHO w/ mild dec in LV systolic fxn- c/w nonischemic cm He has a biotronik ICD - ? checked this adm. No recent shocks. He is on chronic HD Assessment/Plan Continue eliquis and metoprolol for PAFL ICD interrogation if not recently done. Hemodialysis per Dr. Saha Discharge planning. Subjective Subjective Cardiology for Dr. Ely Mr. Leslie has no c/o. Objective Last 24 Hour Vital Signs Date Time Temp Pulse Resp B/P (MAP) Pulse Ox O2 Delivery O2 Flow Rate FiO2 07/19/17 13:39 72 128/67 07/19/17 12:00 98.2 67 21 147/58 99 Nasal Cannula 2.0 98.2 07/19/17 09:29 69 141/59 07/19/17 09:29 141/59 07/19/17 08:00 97.9 69 20 141/59 98 Nasal Cannula 2.0 97.9 07/19/17 07:27 Nasal Cannula 2.0 28 07/19/17 07:27 93 Nasal Cannula 2.0 28 07/19/17 07:27 85 20 Nasal Cannula 2.0 28 07/19/17 05:30 69 103/62 07/19/17 04:00 99.0 69 21 95/68 91 99.0 07/19/17 04:00 Nasal Cannula 2.0 07/19/17 00:00 98.2 69 18 118/70 92 Nasal Cannula 2.0 98.2 07/18/17 23:52 81 20 Nasal Cannula 2.0 28 07/18/17 23:52 94 Nasal Cannula 2.0 28 07/18/17 23:52 Nasal Cannula 2.0 28 07/18/17 23:29 69 118/70 07/18/17 21:05 79 142/83 07/18/17 21:05 142/83 07/18/17 20:00 98.4 79 20 142/83 89 98.4 07/18/17 18:43 98.6 07/18/17 18:19 Nasal Cannula 2.0 07/18/17 18:18 98.6 72 20 131/69 Nasal Cannula 2.0 98.6 07/18/17 18:13 98.0 07/18/17 18:12 75 142/77 07/18/17 16:05 75 18 Nasal Cannula 2.0 28 07/18/17 16:05 Nasal Cannula 2.0 28 07/18/17 16:05 93 Nasal Cannula 2.0 28 07/18/17 16:00 98.0 78 18 142/77 96 Nasal Cannula 2.0 98.0 General Appearance: WD/WN, no apparent distress Neck: supple, other - R IJ catheter Rhythm: NSR Cardiovascular: normal rate Respiratory/Chest: lungs clear - clear anteriorly Abdomen: normal bowel sounds, non tender, soft Extremities: trace edema Intake and Output 07/18/17 07/19/17 19:00 07:00 Intake Total 200 ml Output Total 3850 ml Balance -3850 ml 200 ml Intake Oral 200 ml Hemodialysis UF 3850 ml Laboratory Tests Test 07/19/17 05:00 White Blood Count 5.7 K/UL (4.8-10.8) Red Blood Count 2.91 M/UL (4.70-6.10) L Hemoglobin 9.8 G/DL (14.2-18.0) L Hematocrit 30.3 % (42.0-52.0) L Mean Corpuscular Volume 104 FL (80-99) H Mean Corpuscular Hemoglobin 33.8 PG (27.0-31.0) H Mean Corpuscular Hemoglobin Concent 32.4 G/DL (32.0-36.0) Red Cell Distribution Width 15.4 % (11.6-14.8) H Platelet Count 86 K/UL (150-450) L Mean Platelet Volume 8.1 FL (6.5-10.1) Neutrophils (%) (Auto) 49.7 % (45.0-75.0) Lymphocytes (%) (Auto) 23.2 % (20.0-45.0) Monocytes (%) (Auto) 17.4 % (1.0-10.0) H Eosinophils (%) (Auto) 8.5 % (0.0-3.0) H Basophils (%) (Auto) 1.2 % (0.0-2.0) Sodium Level 139 MMOL/L (136-145) Potassium Level 5.3 MMOL/L (3.5-5.1) H Chloride Level 100 MMOL/L (98-107) Carbon Dioxide Level 33 MMOL/L (21-32) H Anion Gap 6 mmol/L (5-15) Blood Urea Nitrogen 55 mg/dL (7-18) H Creatinine 11.5 MG/DL (0.55-1.30) H Estimat Glomerular Filtration Rate 5.6 mL/min (>60) Glucose Level 89 MG/DL (74-106) Calcium Level 9.1 MG/DL (8.5-10.1) QUETA CONWAY Jul 19, 2017 15:05
[2017-07-19] MEDS: ALPRAZolam 0.5mg tab ORAL PRN (15:13)
[2017-07-19 16:00] VITALS: BP 127/84
[2017-07-19 20:00] VITALS: BP 125/78
[2017-07-19] MEDS: Dyna-Hex 2% Top Sol 2oz TOPIC SCH (20:29)
--- NOTE | 2017-07-19 23:35 | General Progress Note ---
Assessment/Plan Assessment/Plan #. Left leg dvt --> acute onset, will need to review final duplex results --> on apixaban daily x 3 months, low h/h will need to monitor closely --> okay to change to different anticoagulant if renal clearance an issue --> If h/h downtrends below 7.5, consider ivc filter placement. --> Hemoglobin currently >7.5 #. Anemia secondary to chronic disease. --> Hemoglobin levels have been stable. No blood transfusion required at this time. --> S/P abd CAT scan revealing evidence of hepatic cirrhosis. --> Continue to closely monitor and trend cbc daily. --> Anemia workup completed and reviewed. Iron 42, TIBC 180, Ferritin 593, B12 876. --> Ferritin is >500, hgb goal is >7 --> Anemia w/u has been reviewed --> ++Occult blood. Consider GI Services and Recs. #. Thrombocytopenia. --> Hepatitis C ab ++, PCR - --> Monitor platelet level. Transfuse if platelet count <20k --> Levels remain low. # Hepatosplenomegaly. Ascites. There is also evidence of generalized anasarca, with pleural fluid and generalized subcutaneous edema --> Abd pain improved on pain management --> Refer to surgery note. #. Anemia of kidney disease --> HD as needed per nephrology team --> Monitor closely. --> Does not require iron at this time #. Generalized body ache related to fluid overload. #. End-stage renal disease, on hemodialysis as needed --> On hemodialysis #. Respiratory failure due to CHF and pneumonia. --> Providencia and pseudomonas. --> On vancomycin and ethambutol per ID. --> Chest pain improved at this time, on pain management. #. Shortness of breath. Due to underlying pneumonia. #. Atrial flutter with rapid ventricular response. On metoprolol and diltiazem. #. Conjunctivitis. Begin tobramycin. On anti TB treatment. On Amikacin and ethambutol. Continue telemetry. Subjective Date patient seen: Jul 18, 2017 Constitutional: Denies: no symptoms, chills, diaphoresis, fever, malaise, weakness, other HEENT: Denies: no symptoms, eye pain, blurred vision, tearing, double vision, ear pain, ear discharge, nose pain, nose congestion, throat pain, throat swelling, mouth pain, mouth swelling, other Cardiovascular: Denies: no symptoms, chest pain, edema, irregular heart rate, lightheadedness, palpitations, syncope, other Respiratory: Denies: no symptoms, cough, orthopnea, shortness of breath, SOB with excertion, SOB at rest, sputum, stridor, wheezing, other Gastrointestinal/Abdominal: Denies: no symptoms, abdomen distended, abdominal pain, black stools, tarry stools, blood in stool, constipated, diarrhea, difficulty swallowing, nausea, poor appetite, poor fluid intake, rectal bleeding , vomiting, other Genitourinary: Denies: no symptoms, burning, discharge, frequency, flank pain, hematuria, incontinence, pain, urgency, other Neurologic/Psychiatric: Denies: no symptoms, anxiety, depressed, emotional problems, headache, numbness, paresthesia, pre-existing deficit, seizure, tingling, tremors, weakness, other Hematologic/Lymphatic: Reports: anemia Allergies: Coded Allergies: IODINE AND IODIDE CONTAINING PRODUC (Verified Allergy, Mild, itching and pruritis, 06/25/17) Uncoded Allergies: CONTRAST/DYE (Allergy, Intermediate, PRURITIS AND ITCHING, 06/25/17) Subjective On pain control. H/H stable. Objective Last 24 Hour Vital Signs Date Time Temp Pulse Resp B/P (MAP) Pulse Ox O2 Delivery O2 Flow Rate FiO2 07/19/17 20:29 77 125/78 07/19/17 20:28 125/77 07/19/17 20:00 98.3 89 20 125/78 98 98.3 07/19/17 19:26 97 Nasal Cannula 2.0 28 07/19/17 19:26 108 18 Nasal Cannula 2.0 28 07/19/17 19:26 Nasal Cannula 2.0 28 07/19/17 19:00 82 132/81 07/19/17 16:00 97.9 89 18 127/84 99 Nasal Cannula 2.0 97.9 07/19/17 13:39 72 128/67 07/19/17 12:00 98.2 67 21 147/58 99 Nasal Cannula 2.0 98.2 07/19/17 09:29 69 141/59 07/19/17 09:29 141/59 07/19/17 08:00 97.9 69 20 141/59 98 Nasal Cannula 2.0 97.9 07/19/17 07:27 Nasal Cannula 2.0 28 07/19/17 07:27 93 Nasal Cannula 2.0 28 07/19/17 07:27 85 20 Nasal Cannula 2.0 28 07/19/17 05:30 69 103/62 07/19/17 04:00 99.0 69 21 95/68 91 99.0 07/19/17 04:00 Nasal Cannula 2.0 07/19/17 00:00 98.2 69 18 118/70 92 Nasal Cannula 2.0 98.2 07/18/17 23:52 81 20 Nasal Cannula 2.0 28 07/18/17 23:52 94 Nasal Cannula 2.0 28 07/18/17 23:52 Nasal Cannula 2.0 28 Intake and Output 07/18/17 07/19/17 19:00 07:00 Intake Total 200 ml Output Total 3850 ml Balance -3850 ml 200 ml Intake Oral 200 ml Hemodialysis UF 3850 ml Laboratory Tests 07/19/17 05:00: White Blood Count 5.7, Red Blood Count 2.91L, Hemoglobin 9.8L, Hematocrit 30.3L , Mean Corpuscular Volume 104H, Mean Corpuscular Hemoglobin 33.8H, Mean Corpuscular Hemoglobin Concent 32.4, Red Cell Distribution Width 15.4H, Platelet Count 86L, Mean Platelet Volume 8.1, Neutrophils (%) (Auto) 49.7, Lymphocytes (%) (Auto) 23.2, Monocytes (%) (Auto) 17.4H, Eosinophils (%) (Auto) 8.5H, Basophils (%) (Auto) 1.2, Sodium Level 139, Potassium Level 5.3H, Chloride Level 100, Carbon Dioxide Level 33H, Anion Gap 6, Blood Urea Nitrogen 55H, Creatinine 11.5H, Estimat Glomerular Filtration Rate 5.6, Glucose Level 89 , Calcium Level 9.1 Height (Feet): 5 Height (Inches): 7.00 Weight (Pounds): 228 Irving Parker MD Jul 19, 2017 23:35
[2017-07-20] VITALS: BP 118/69
[2017-07-20] MEDS: dilTIAZem HCl 30mg tab ORAL SCH ×5 (00:19→23:56)
[2017-07-20] MEDS: Clindamycin 150mg cap ORAL SCH ×5 (00:19→23:51)
[2017-07-20 04:00] VITALS: BP 122/68
[2017-07-20 08:00] VITALS: BP 112/68
[2017-07-20] MEDS: Eliquis 2.5mg tablet ORAL SCH ×2 (08:47→20:41)
[2017-07-20] MEDS: Lisinopril 20mg tab ORAL SCH ×2 (08:48→20:42)
[2017-07-20 10:38] LABS: HEMATOCRIT 31.9 % (42.0-52.0); HEMOGLOBIN 10.1 G/DL (14.2-18.0); MEAN CORPUSCULAR VOLUME 102 FL (80-99); PLATELET COUNT 92 K/UL (150-450); RED BLOOD COUNT 3.13 M/UL (4.70-6.10); RED CELL DISTRIBUTION WIDTH 14.6 % (11.6-14.8); WHITE BLOOD COUNT 4.9 K/UL (4.8-10.8)
[2017-07-20 11:11] LABS: ANION GAP 11 mmol/L (5-15); BLOOD UREA NITROGEN 65 mg/dL (7-18); CALCIUM 9.2 MG/DL (8.5-10.1); CARBON DIOXIDE 27 MMOL/L (21-32); CHLORIDE 98 MMOL/L (98-107); SODIUM 136 MMOL/L (136-145)
[2017-07-20 12:00] VITALS: BP 115/72
--- NOTE | 2017-07-20 13:05 | Cardiology Progress Note ---
Assessment/Plan Problem List: (1) CHF (congestive heart failure) (2) COPD (chronic obstructive pulmonary disease) (3) HTN (hypertension) (4) Elevated troponin (5) Pneumonia (6) Respiratory failure (7) Atrial flutter with rapid ventricular response Status: stable, progressing Status Narrative Mr. Leslie is in stable SR clinically. hx of PAF/FL He has not had further CP. Recent stress myoc perfusion scan was negative for ischemia. Remains w/ edema, dyspnea ECHO w/ mild dec in LV systolic fxn- c/w nonischemic cm He is on chronic HD - Assessment/Plan Continue eliquis and metoprolol for PAFL ICD interrogation if not recently done. Hemodialysis w / fluid removal Discharge planning. Plan for SNF transfer noted Subjective ROS Limited/Unobtainable: No Subjective Cardiology for Dr. Ely Mr. Leslie reports dyspnea when off o2. Objective Last 24 Hour Vital Signs Date Time Temp Pulse Resp B/P (MAP) Pulse Ox O2 Delivery O2 Flow Rate FiO2 07/20/17 12:27 70 115/72 07/20/17 12:00 98.1 70 20 115/72 96 Nasal Cannula 2.0 98.1 07/20/17 09:19 97.8 07/20/17 08:48 112/68 07/20/17 08:47 70 112/68 07/20/17 08:00 97.8 70 19 112/68 98 Nasal Cannula 2.0 97.8 07/20/17 07:30 67 18 Nasal Cannula 2.0 28 07/20/17 07:30 Nasal Cannula 2.0 28 07/20/17 07:30 92 Nasal Cannula 2.0 28 07/20/17 05:42 69 122/68 07/20/17 04:00 98.0 69 20 122/68 98 Nasal Cannula 2.0 98.0 07/20/17 00:19 76 118/69 07/20/17 00:00 98.7 76 20 118/69 99 Nasal Cannula 2.0 98.7 07/19/17 20:29 77 125/78 07/19/17 20:28 125/77 07/19/17 20:00 98.3 89 20 125/78 98 98.3 07/19/17 19:26 97 Nasal Cannula 2.0 28 07/19/17 19:26 108 18 Nasal Cannula 2.0 28 07/19/17 19:26 Nasal Cannula 2.0 28 07/19/17 19:00 82 132/81 07/19/17 16:00 97.9 89 18 127/84 99 Nasal Cannula 2.0 97.9 07/19/17 13:39 72 128/67 General Appearance: WD/WN, no apparent distress, alert EENT: PERRL/EOMI Neck: supple, no JVD Rhythm: NSR Cardiovascular: normal rate, regular rhythm, no gallop/murmur Respiratory/Chest: lungs clear Abdomen: non tender, soft Extremities: other - 2+ pitting edema of feet/ankles bilat. L UE AV fistula + bruit Intake and Output 07/19/17 07/20/17 19:00 07:00 Intake Total 2120 ml 900 ml Balance 2120 ml 900 ml Intake Oral 620 ml 900 ml Other 1500 ml # Voids 3 3 # Bowel Movements 1 Laboratory Tests Test 07/20/17 10:10 White Blood Count 4.9 K/UL (4.8-10.8) Red Blood Count 3.13 M/UL (4.70-6.10) L Hemoglobin 10.1 G/DL (14.2-18.0) L Hematocrit 31.9 % (42.0-52.0) L Mean Corpuscular Volume 102 FL (80-99) H Mean Corpuscular Hemoglobin 32.3 PG (27.0-31.0) H Mean Corpuscular Hemoglobin Concent 31.7 G/DL (32.0-36.0) L Red Cell Distribution Width 14.6 % (11.6-14.8) Platelet Count 92 K/UL (150-450) L Mean Platelet Volume 7.1 FL (6.5-10.1) Neutrophils (%) (Auto) % (45.0-75.0) Lymphocytes (%) (Auto) % (20.0-45.0) Monocytes (%) (Auto) % (1.0-10.0) Eosinophils (%) (Auto) % (0.0-3.0) Basophils (%) (Auto) % (0.0-2.0) Differential Total Cells Counted 100 Neutrophils % (Manual) 50 % (45-75) Lymphocytes % (Manual) 24 % (20-45) Monocytes % (Manual) 18 % (1-10) H Eosinophils % (Manual) 8 % (0-3) H Basophils % (Manual) 0 % (0-2) Band Neutrophils 0 % (0-8) Platelet Estimate Decreased L Platelet Morphology Normal Hypochromasia 1+ Anisocytosis 1+ Macrocytosis 1+ Sodium Level 136 MMOL/L (136-145) Potassium Level 5.0 MMOL/L (3.5-5.1) Chloride Level 98 MMOL/L (98-107) Carbon Dioxide Level 27 MMOL/L (21-32) Anion Gap 11 mmol/L (5-15) Blood Urea Nitrogen 65 mg/dL (7-18) H Creatinine 13.0 MG/DL (0.55-1.30) H Estimat Glomerular Filtration Rate 4.8 mL/min (>60) Glucose Level 105 MG/DL (74-106) Calcium Level 9.2 MG/DL (8.5-10.1) QUEAT CONWAY Jul 20, 2017 13:05
--- NOTE | 2017-07-20 14:07 | Pulmonology Progress Note ---
Assessment/Plan Problems: (1) Respiratory failure (2) Pneumonia (3) Rapid atrial fibrillation (4) HTN (hypertension) (5) ESRD (end stage renal disease) on dialysis (6) Anemia Assessment/Plan CXR 07/15: RUL cavitary lesion is much better continue telemetry, c/o generalized pain slowly improving onNC HD by vice president underwriting prbc prn on anti TB meds wtih IV Amikacin, ethambutol BAl showing vre and Abby no need for Antitb medication continue current meds Subjective ROS Limited/Unobtainable: No Constitutional: Reports: no symptoms Respiratory: Reports: no symptoms Allergies: Coded Allergies: IODINE AND IODIDE CONTAINING PRODUC (Verified Allergy, Mild, itching and pruritis, 06/25/17) Uncoded Allergies: CONTRAST/DYE (Allergy, Intermediate, PRURITIS AND ITCHING, 06/25/17) Objective Last 24 Hour Vital Signs Date Time Temp Pulse Resp B/P (MAP) Pulse Ox O2 Delivery O2 Flow Rate FiO2 07/20/17 12:27 70 115/72 07/20/17 12:00 98.1 70 20 115/72 96 Nasal Cannula 2.0 98.1 07/20/17 09:19 97.8 07/20/17 08:48 112/68 07/20/17 08:47 70 112/68 07/20/17 08:00 97.8 70 19 112/68 98 Nasal Cannula 2.0 97.8 07/20/17 07:30 67 18 Nasal Cannula 2.0 28 07/20/17 07:30 Nasal Cannula 2.0 28 07/20/17 07:30 92 Nasal Cannula 2.0 28 07/20/17 05:42 69 122/68 07/20/17 04:00 98.0 69 20 122/68 98 Nasal Cannula 2.0 98.0 07/20/17 00:19 76 118/69 07/20/17 00:00 98.7 76 20 118/69 99 Nasal Cannula 2.0 98.7 07/19/17 20:29 77 125/78 07/19/17 20:28 125/77 07/19/17 20:00 98.3 89 20 125/78 98 98.3 07/19/17 19:26 97 Nasal Cannula 2.0 28 07/19/17 19:26 108 18 Nasal Cannula 2.0 28 07/19/17 19:26 Nasal Cannula 2.0 28 07/19/17 19:00 82 132/81 07/19/17 16:00 97.9 89 18 127/84 99 Nasal Cannula 2.0 97.9 Intake and Output 07/19/17 07/20/17 19:00 07:00 Intake Total 2120 ml 900 ml Balance 2120 ml 900 ml Intake Oral 620 ml 900 ml Other 1500 ml # Voids 3 3 # Bowel Movements 1 Objective General Appearance: WD/WN HEENT: normocephalic, atraumatic, anicteric Respiratory/Chest: loud rhonchi Cardiovascular: normal peripheral pulses, normal rate, regular rhythm Abdomen: normal bowel sounds, soft, non tender, no organomegaly Genitourinary: normal external genitalia Extremities: no cyanosis Skin: no rash, no lesions 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, no motor/sensory deficits Lymphatic: no neck adenopathy, no groin adenopathy Laboratory Tests 07/20/17 10:10: White Blood Count 4.9, Red Blood Count 3.13L, Hemoglobin 10.1L, Hematocrit 31.9L , Mean Corpuscular Volume 102H, Mean Corpuscular Hemoglobin 32.3H, Mean Corpuscular Hemoglobin Concent 31.7L, Red Cell Distribution Width 14.6, Platelet Count 92L, Mean Platelet Volume 7.1, Neutrophils (%) (Auto) , Lymphocytes (%) (Auto) , Monocytes (%) (Auto) , Eosinophils (%) (Auto) , Basophils (%) (Auto) , Differential Total Cells Counted 100, Neutrophils % ( Manual) 50, Lymphocytes % (Manual) 24, Monocytes % (Manual) 18H, Eosinophils % ( Manual) 8H, Basophils % (Manual) 0, Band Neutrophils 0, Platelet Estimate DecreasedL, Platelet Morphology Normal, Hypochromasia 1+, Anisocytosis 1+, Macrocytosis 1+, Sodium Level 136, Potassium Level 5.0, Chloride Level 98, Carbon Dioxide Level 27, Anion Gap 11, Blood Urea Nitrogen 65H, Creatinine 13.0H , Estimat Glomerular Filtration Rate 4.8, Glucose Level 105, Calcium Level 9.2 Current Medications Medications (Trade) Dose Ordered Sig/Jose Route PRN Reason Start Time Stop Time Status Last Admin Dose Admin Alprazolam (Xanax) 2 mg DAILYPRN PRN ORAL For Anxiety 07/16/17 15:15 07/23/17 15:14 07/19/17 15:13 Amikacin Protocol (Amikacin pharmacy to dose) 1 ea DAILY PRN MISC Per rx protocol 07/16/17 09:00 08/03/17 15:14 Amikacin Sulfate 800 mg/Dextrose 113.2 ml @ 226.4 mls/ hr FRI-FRI-FRI IV 07/18/17 21:00 07/25/17 20:59 07/18/17 21:06 Apixaban (Eliquis) 2.5 mg Q12HR ORAL 07/16/17 09:00 08/15/17 08:59 07/20/17 08:47 Carisoprodol (Soma) 350 mg Q6H PRN ORAL Muscle Spasm 07/18/17 15:30 08/17/17 15:29 07/19/17 05:30 Chlorhexidine Gluconate (Mireille-Hex 2%) 1 applic DAILY@1999 TOPIC 07/15/17 20:00 08/02/17 19:59 07/19/17 20:29 Clindamycin HCl (Cleocin) 450 mg EVERY 6 HOURS ORAL 07/16/17 18:00 07/23/17 17:59 07/20/17 12:27 Dextrose (Dextrose 50%) 25 ml STAT PRN IV HYPOGLYCEMIA 07/16/17 08:30 08/08/17 08:29 Diltiazem HCl (Cardizem) 30 mg EVERY 6 HOURS ORAL 07/16/17 00:00 08/09/17 19:29 07/20/17 12:27 Ethambutol HCl (Myambutol) 1,000 mg 3XW ORAL 07/16/17 09:00 07/21/17 23:59 07/18/17 18:12 Hydromorphone HCl (Dilaudid) 2 mg Q4H PRN IVP Severe Pain (Pain Scale 7-10) 07/16/17 21:15 07/23/17 21:14 07/20/17 08:49 Levofloxacin (Levaquin) 750 mg EVERY OTHER DAY@1999 ORAL 07/15/17 20:00 07/21/17 23:59 07/19/17 20:26 Lisinopril (Prinivil) 20 mg Q12HR ORAL 07/16/17 09:00 08/15/17 08:59 07/20/17 08:48 Metoprolol Tartrate (Lopressor) 100 mg Q12HR ORAL 07/15/17 21:00 08/10/17 20:59 07/20/17 08:47 Ondansetron HCl (Zofran) 4 mg Q6H PRN IVP Nausea & Vomiting 07/18/17 15:30 08/17/17 15:29 07/19/17 15:56 Promethazine HCl/ Codeine (Phenergan with Codeine) 5 ml Q4H PRN ORAL For Cough 07/15/17 19:32 07/22/17 19:31 Christine Morgan MD Jul 20, 2017 14:07
[2017-07-20 16:00] VITALS: BP 132/86
--- NOTE | 2017-07-20 16:15 | Internal Med Progress Note ---
Subjective Date of Service: Jul 20, 2017 Physician Name Zoey Pires Attending Physician Chaitanya Weinstein MD Current Medications Medications (Trade) Dose Ordered Sig/Jose Route PRN Reason Start Time Stop Time Status Last Admin Dose Admin Alprazolam (Xanax) 2 mg DAILYPRN PRN ORAL For Anxiety 07/16/17 15:15 07/23/17 15:14 07/19/17 15:13 Amikacin Protocol (Amikacin pharmacy to dose) 1 ea DAILY PRN MISC Per rx protocol 07/16/17 09:00 08/03/17 15:14 Amikacin Sulfate 800 mg/Dextrose 113.2 ml @ 226.4 mls/ hr FRI-FRI-FRI IV 07/18/17 21:00 07/25/17 20:59 07/18/17 21:06 Apixaban (Eliquis) 2.5 mg Q12HR ORAL 07/16/17 09:00 08/15/17 08:59 07/20/17 08:47 Carisoprodol (Soma) 350 mg Q6H PRN ORAL Muscle Spasm 07/18/17 15:30 08/17/17 15:29 07/19/17 05:30 Chlorhexidine Gluconate (Mireille-Hex 2%) 1 applic DAILY@2000 TOPIC 07/15/17 20:00 08/02/17 19:59 07/19/17 20:29 Clindamycin HCl (Cleocin) 450 mg EVERY 6 HOURS ORAL 07/16/17 18:00 07/23/17 17:59 07/20/17 12:27 Dextrose (Dextrose 50%) 25 ml STAT PRN IV HYPOGLYCEMIA 07/16/17 08:30 08/08/17 08:29 Diltiazem HCl (Cardizem) 30 mg EVERY 6 HOURS ORAL 07/16/17 00:00 08/09/17 19:29 07/20/17 12:27 Ethambutol HCl (Myambutol) 1,000 mg 3XW ORAL 07/16/17 09:00 07/21/17 23:59 07/18/17 18:12 Hydromorphone HCl (Dilaudid) 2 mg Q4H PRN IVP Severe Pain (Pain Scale 7-10) 07/16/17 21:15 07/23/17 21:14 07/20/17 14:07 Levofloxacin (Levaquin) 750 mg EVERY OTHER DAY@1999 ORAL 07/15/17 20:00 07/21/17 23:59 07/19/17 20:26 Lisinopril (Prinivil) 20 mg Q12HR ORAL 07/16/17 09:00 08/15/17 08:59 07/20/17 08:48 Metoprolol Tartrate (Lopressor) 100 mg Q12HR ORAL 07/15/17 21:00 08/10/17 20:59 07/20/17 08:47 Ondansetron HCl (Zofran) 4 mg Q6H PRN IVP Nausea & Vomiting 07/18/17 15:30 08/17/17 15:29 07/19/17 15:56 Promethazine HCl/ Codeine (Phenergan with Codeine) 5 ml Q4H PRN ORAL For Cough 07/15/17 19:32 07/22/17 19:31 Allergies: Coded Allergies: IODINE AND IODIDE CONTAINING PRODUC (Verified Allergy, Mild, itching and pruritis, 06/25/17) Uncoded Allergies: CONTRAST/DYE (Allergy, Intermediate, PRURITIS AND ITCHING, 06/25/17) ROS Limited/Unobtainable: No Constitutional: Reports: no symptoms HEENT: Reports: no symptoms Cardiovascular: Reports: no symptoms Respiratory: Reports: no symptoms Gastrointestinal/Abdominal: Reports: no symptoms Genitourinary: Reports: no symptoms Neurologic/Psychiatric: Reports: no symptoms Subjective 57 YO M admitted with chest pain and shortness of breath. Now pneumonia and candelaria heart failure. Back on nasal canula. Cover for Int Misbah-Dr Weinstein. Now atrial flutter Objective Last Vital Signs Date Time Temp Pulse Resp B/P (MAP) Pulse Ox O2 Delivery O2 Flow Rate FiO2 07/20/17 16:00 99.3 74 19 132/86 95 Nasal Cannula 2.0 99.3 07/20/17 07:30 28 Laboratory Tests Test 07/20/17 10:10 White Blood Count 4.9 K/UL (4.8-10.8) Red Blood Count 3.13 M/UL (4.70-6.10) L Hemoglobin 10.1 G/DL (14.2-18.0) L Hematocrit 31.9 % (42.0-52.0) L Mean Corpuscular Volume 102 FL (80-99) H Mean Corpuscular Hemoglobin 32.3 PG (27.0-31.0) H Mean Corpuscular Hemoglobin Concent 31.7 G/DL (32.0-36.0) L Red Cell Distribution Width 14.6 % (11.6-14.8) Platelet Count 92 K/UL (150-450) L Mean Platelet Volume 7.1 FL (6.5-10.1) Neutrophils (%) (Auto) % (45.0-75.0) Lymphocytes (%) (Auto) % (20.0-45.0) Monocytes (%) (Auto) % (1.0-10.0) Eosinophils (%) (Auto) % (0.0-3.0) Basophils (%) (Auto) % (0.0-2.0) Differential Total Cells Counted 100 Neutrophils % (Manual) 50 % (45-75) Lymphocytes % (Manual) 24 % (20-45) Monocytes % (Manual) 18 % (1-10) H Eosinophils % (Manual) 8 % (0-3) H Basophils % (Manual) 0 % (0-2) Band Neutrophils 0 % (0-8) Platelet Estimate Decreased L Platelet Morphology Normal Hypochromasia 1+ Anisocytosis 1+ Macrocytosis 1+ Sodium Level 136 MMOL/L (136-145) Potassium Level 5.0 MMOL/L (3.5-5.1) Chloride Level 98 MMOL/L (98-107) Carbon Dioxide Level 27 MMOL/L (21-32) Anion Gap 11 mmol/L (5-15) Blood Urea Nitrogen 65 mg/dL (7-18) H Creatinine 13.0 MG/DL (0.55-1.30) H Estimat Glomerular Filtration Rate 4.8 mL/min (>60) Glucose Level 105 MG/DL (74-106) Calcium Level 9.2 MG/DL (8.5-10.1) Intake and Output 07/19/17 07/20/17 19:00 07:00 Intake Total 2120 ml 900 ml Balance 2120 ml 900 ml Intake Oral 620 ml 900 ml Other 1500 ml # Voids 3 3 # Bowel Movements 1 Objective General Appearance: WD/WN, alert, moderate distress EENT: PERRL/EOMI, normal ENT inspection Neck: non-tender, normal alignment, supple, normal inspection Cardiovascular: Tachycardia; normal peripheral pulses, normal rate, regular rhythm, no gallop/murmur, no JVD Respiratory/Chest: Nasal canula; respiratory distress, crackles/rales, rhonchi - bilaterally, expiratory wheezing Abdomen: normal bowel sounds, non tender, soft, no organomegaly, no mass Extremities: normal range of motion 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 (2) Respiratory failure Assessment & Plan: CHF and Pneumonia. Currently on nasal canula. See pulmonay note. (3) Pleuritic chest pain (4) Hemoptysis Assessment & Plan: Due to pneumonia (5) Pneumonia Assessment & Plan: Providencia and pseudamonas. RUL and cavitary. Concerning for TB. Await AFB cultures-see ID consult. Continue ethambutol, amikacin, levaquin and clindamycin per ID (6) Shortness of breath (7) ESRD (end stage renal disease) on dialysis Assessment & Plan: See nephrology note. Next Hemodialysis 07/21/17 per nephrology (8) Hyperkalemia Assessment & Plan: Due to renal failure. Hemodialysis 06/13/17 per nephrology (9) COPD (chronic obstructive pulmonary disease) (10) HTN (hypertension) Assessment & Plan: Continue coreg and lisinopril. (11) CHF (congestive heart failure) (12) Elevated troponin Assessment & Plan: ?due to renal failure? See cardiology note. (13) Intractable abdominal pain Assessment & Plan: See surgery note (14) Conjunctivitis Assessment & Plan: start tobramycin (15) Diarrhea Assessment & Plan: C. Diff Status: progressing Assessment/Plan Discharge planning - coordination with [facility] pending ZOEY PIRES Jul 20, 2017 16:15
--- NOTE | 2017-07-20 16:23 | Nephrology Progress Note ---
Assessment/Plan Problem List: (1) ESRD (end stage renal disease) on dialysis (2) Shortness of breath (3) Anemia Assessment Anemia ESRD , missed HD on admission , admitted with high K and pulmonary edema Acute respiratory distress due to volume overload elevated troponin r/o ACS h/o COPD ? exacerbation HTN urgency Cardiomyopathy L AICD anemia of chronic kidney disease Hx of CVA Plan Plan: HD next 07/21- will care for high K with HD Kayexelate for now Max UF Transfused Phos binders BP meds adjustment Optimize cardiac status per orders Subjective ROS Limited/Unobtainable: No Constitutional: Reports: malaise Objective Objective Last 24 Hour Vital Signs Date Time Temp Pulse Resp B/P (MAP) Pulse Ox O2 Delivery O2 Flow Rate FiO2 07/20/17 16:00 99.3 74 19 132/86 95 Nasal Cannula 2.0 99.3 07/20/17 14:07 98.1 07/20/17 12:27 70 115/72 07/20/17 12:00 98.1 70 20 115/72 96 Nasal Cannula 2.0 98.1 07/20/17 09:19 97.8 07/20/17 08:48 112/68 07/20/17 08:47 70 112/68 07/20/17 08:00 97.8 70 19 112/68 98 Nasal Cannula 2.0 97.8 07/20/17 07:30 67 18 Nasal Cannula 2.0 28 07/20/17 07:30 Nasal Cannula 2.0 28 07/20/17 07:30 92 Nasal Cannula 2.0 28 07/20/17 05:42 69 122/68 07/20/17 04:00 98.0 69 20 122/68 98 Nasal Cannula 2.0 98.0 07/20/17 00:19 76 118/69 07/20/17 00:00 98.7 76 20 118/69 99 Nasal Cannula 2.0 98.7 07/19/17 20:29 77 125/78 07/19/17 20:28 125/77 07/19/17 20:00 98.3 89 20 125/78 98 98.3 07/19/17 19:26 97 Nasal Cannula 2.0 28 07/19/17 19:26 108 18 Nasal Cannula 2.0 28 07/19/17 19:26 Nasal Cannula 2.0 28 07/19/17 19:00 82 132/81 Intake and Output 07/19/17 07/20/17 19:00 07:00 Intake Total 2120 ml 900 ml Balance 2120 ml 900 ml Intake Oral 620 ml 900 ml Other 1500 ml # Voids 3 3 # Bowel Movements 1 Laboratory Tests 07/20/17 10:10: White Blood Count 4.9, Red Blood Count 3.13L, Hemoglobin 10.1L, Hematocrit 31.9L , Mean Corpuscular Volume 102H, Mean Corpuscular Hemoglobin 32.3H, Mean Corpuscular Hemoglobin Concent 31.7L, Red Cell Distribution Width 14.6, Platelet Count 92L, Mean Platelet Volume 7.1, Neutrophils (%) (Auto) , Lymphocytes (%) (Auto) , Monocytes (%) (Auto) , Eosinophils (%) (Auto) , Basophils (%) (Auto) , Differential Total Cells Counted 100, Neutrophils % ( Manual) 50, Lymphocytes % (Manual) 24, Monocytes % (Manual) 18H, Eosinophils % ( Manual) 8H, Basophils % (Manual) 0, Band Neutrophils 0, Platelet Estimate DecreasedL, Platelet Morphology Normal, Hypochromasia 1+, Anisocytosis 1+, Macrocytosis 1+, Sodium Level 136, Potassium Level 5.0, Chloride Level 98, Carbon Dioxide Level 27, Anion Gap 11, Blood Urea Nitrogen 65H, Creatinine 13.0H , Estimat Glomerular Filtration Rate 4.8, Glucose Level 105, Calcium Level 9.2 Height (Feet): 5 Height (Inches): 7.00 Weight (Pounds): 224 General Appearance: no apparent distress Objective no change LIAM MONTELONGO Jul 20, 2017 16:23
[2017-07-20 20:00] VITALS: BP 125/79
[2017-07-20] MEDS: Dyna-Hex 2% Top Sol 2oz TOPIC SCH (20:41)
--- NOTE | 2017-07-20 21:35 | Infectious Diseases Prog Note ---
Assessment/Plan Assessment/Plan Cavitary PNA. SCx: Neg ( m/l necrotizing Pneum, vs anaerobic abscess, doubt TB or fungal ) ; improving - 07/09 SP BAL Cx( Abby and MOJGAN : Colonizers ) , Path : Neg for fungus and Malignancy - -CT 07/15 : he overall lesion appears smaller, measuring 6.3 cm AP by 3.6 cm transverse by 2.3 cm craniocaudad currently -CT chest 06/25: Since the prior study of 06/15/2017, and. From further reduction in size of previously demonstrated thick walled right upper lobe cavitary mass. This was previously thought to most likely represent a cavitary inflammatory mass, and the interim reduction in size certainly supports that. Much less likely a cavitary neoplasm, but follow-up to resolution is recommended. Markedly improved parenchymal disease bilaterally, since the previous study. Nonetheless , extensive atelectasis and groundglass consolidation persists. Persistent small right pleural effusion, smaller than on the prior study. Resolved left pleural effusion 6 mm nodular opacity in the right upper lobe, not evident previously but likely obscured by surrounding consolidated lung parenchyma. This should be followed up in 6 months to one year depending on results of interim follow-up exams T-SPOT :Neg AFB x 3 : Neg MTB PCR x2 : neg cryptococcus Ag, Histoplams mycelial Ab , Blastomyces ab : neg ; histoplasma yeast ab (not able to be done due to anticomplementary activity) -Cocci, Asp ag p -Fungitell + 144 (?aspergillosis vs m/l false positive) CT chest 06/15: Slightly smaller (6 cm diameter ) but mostly unchanged cavitary lesion in the right lung, previously thought to represent a cavitating inflammatory process. Lung abscess is certainly a possibility. Fairly extensive bilateral pulmonary parenchymal consolidation, slightly increased from previous exam of 06/05/2017. Likely a combination of pulmonary edema and pneumonia. Small right and trace left pleural effusion, new/increased from the previous study. CT 06/05: 7.8 x 5.3 x 6.6 cm dense opacity in the posterior inferior right upper lobe with a central cavitation. CRP 14 Influenza negative Coccidioidal ,Galactomannan : NEG ( PER LAB ) Transaminitis , improving after stopping rifampin /2 Hep C cirrhosis- no active Hep C as VL not detected -CT abd/p: Evidence of hepatic cirrhosis. Hepatosplenomegaly. evidence of generalized anasarca, with pleural fluid and generalized subcutaneous edema. Cholelithiasis, also previously reported. Possible diverticulosis. No evidence of diverticulitis US Abd : Cholelithiasis. There is gallbladder wall thickening, likely related to hemodynamic abnormalities Splenomegaly. Evidence of hepatic cirrhosis HIV : NEG Hep Panel B neg , C Ab : +ve , VL not detected leukopenia and TCP 2/2 splenomegaly Seizure disorder History of CVA History of pacemaker placement Hyperlipidemia Hypertension COPD/asthma End-stage renal disease, on hemodialysis Diabetes Anxiety Anemia Echo, ejection fraction 45% to 50%. PLAN: - Cont oral Clinda d# 5 ( till resolution of of abscess) ( abx d# 46 ) Continue empiric Ethambutol and Levaquin, Amikacin ( empiric TB AB Rx d# 34 as per TB control request, this was TB control , still insists to research [facility] w TB regiment till final cultures are back ) 07/16 SP DC Zoysn d# 9 ( for SOB and CXR worsen , better coverage of anaerobes, PSA and Providencia ); 07/07 SP Dc Flagyl 07/06 SP Voriconazole ( low antonio for fungal infection , and in the setting of cirrhosis ) 07/05 SP Micafungin abx d#20 , Rifampin 600mg qd #10 07/01 SP Ceftriaxone #10 06/28 SP Amikacin #15 06/25 SP PO Voriconazole #3 06/20 SP Liposomal Ampho #8 06/17 SP IV Vancomycin #14, Meropenem #5 06/13 SP Zosyn d# 10 3 SP Zithromax D# 6 f/u sputum culture (fungal, and AFB x3). BAL fungal and AFB Cx : P - CMP called Micro lab to follow on the Culture results ( AFB ) called IP to [facility] TB control re sopping TB Meds Subjective Allergies: Coded Allergies: IODINE AND IODIDE CONTAINING PRODUC (Verified Allergy, Mild, itching and pruritis, 06/25/17) Uncoded Allergies: CONTRAST/DYE (Allergy, Intermediate, PRURITIS AND ITCHING, 06/25/17) Subjective comfortable Objective Vital Signs Last 24 Hour Vital Signs Date Time Temp Pulse Resp B/P (MAP) Pulse Ox O2 Delivery O2 Flow Rate FiO2 07/20/17 20:42 125/79 07/20/17 20:41 68 125/79 07/20/17 20:09 68 20 Nasal Cannula 2.0 28 07/20/17 20:09 Nasal Cannula 2.0 28 07/20/17 20:09 94 Nasal Cannula 2.0 28 07/20/17 18:18 74 132/86 07/20/17 16:00 99.3 74 19 132/86 95 Nasal Cannula 2.0 99.3 07/20/17 14:07 98.1 07/20/17 12:27 70 115/72 07/20/17 12:00 98.1 70 20 115/72 96 Nasal Cannula 2.0 98.1 07/20/17 09:19 97.8 07/20/17 08:48 112/68 07/20/17 08:47 70 112/68 07/20/17 08:00 97.8 70 19 112/68 98 Nasal Cannula 2.0 97.8 07/20/17 07:30 67 18 Nasal Cannula 2.0 28 07/20/17 07:30 Nasal Cannula 2.0 28 07/20/17 07:30 92 Nasal Cannula 2.0 28 07/20/17 05:42 69 122/68 07/20/17 04:00 98.0 69 20 122/68 98 Nasal Cannula 2.0 98.0 07/20/17 00:19 76 118/69 07/20/17 00:00 98.7 76 20 118/69 99 Nasal Cannula 2.0 98.7 Height (Feet): 5 Height (Inches): 7.00 Weight (Pounds): 224 HEENT: mucous membranes moist Respiratory/Chest: no respiratory distress Cardiovascular: regularly irregular Abdomen: no organomegaly Laboratory Tests Test 07/20/17 10:10 White Blood Count 4.9 K/UL (4.8-10.8) Red Blood Count 3.13 M/UL (4.70-6.10) L Hemoglobin 10.1 G/DL (14.2-18.0) L Hematocrit 31.9 % (42.0-52.0) L Mean Corpuscular Volume 102 FL (80-99) H Mean Corpuscular Hemoglobin 32.3 PG (27.0-31.0) H Mean Corpuscular Hemoglobin Concent 31.7 G/DL (32.0-36.0) L Red Cell Distribution Width 14.6 % (11.6-14.8) Platelet Count 92 K/UL (150-450) L Mean Platelet Volume 7.1 FL (6.5-10.1) Neutrophils (%) (Auto) % (45.0-75.0) Lymphocytes (%) (Auto) % (20.0-45.0) Monocytes (%) (Auto) % (1.0-10.0) Eosinophils (%) (Auto) % (0.0-3.0) Basophils (%) (Auto) % (0.0-2.0) Differential Total Cells Counted 100 Neutrophils % (Manual) 50 % (45-75) Lymphocytes % (Manual) 24 % (20-45) Monocytes % (Manual) 18 % (1-10) H Eosinophils % (Manual) 8 % (0-3) H Basophils % (Manual) 0 % (0-2) Band Neutrophils 0 % (0-8) Platelet Estimate Decreased L Platelet Morphology Normal Hypochromasia 1+ Anisocytosis 1+ Macrocytosis 1+ Sodium Level 136 MMOL/L (136-145) Potassium Level 5.0 MMOL/L (3.5-5.1) Chloride Level 98 MMOL/L (98-107) Carbon Dioxide Level 27 MMOL/L (21-32) Anion Gap 11 mmol/L (5-15) Blood Urea Nitrogen 65 mg/dL (7-18) H Creatinine 13.0 MG/DL (0.55-1.30) H Estimat Glomerular Filtration Rate 4.8 mL/min (>60) Glucose Level 105 MG/DL (74-106) Calcium Level 9.2 MG/DL (8.5-10.1) Current Medications Medications (Trade) Dose Ordered Sig/Jose Route PRN Reason Start Time Stop Time Status Last Admin Dose Admin Alprazolam (Xanax) 2 mg DAILYPRN PRN ORAL For Anxiety 07/16/17 15:15 07/23/17 15:14 07/19/17 15:13 Amikacin Protocol (Amikacin pharmacy to dose) 1 ea DAILY PRN MISC Per rx protocol 07/16/17 09:00 08/03/17 15:14 Amikacin Sulfate 800 mg/Dextrose 113.2 ml @ 226.4 mls/ hr MON-WED-FRI IV 07/18/17 21:00 07/25/17 20:59 07/18/17 21:06 Apixaban (Eliquis) 2.5 mg Q12HR ORAL 07/16/17 09:00 08/15/17 08:59 07/20/17 20:41 Carisoprodol (Soma) 350 mg Q6H PRN ORAL Muscle Spasm 07/18/17 15:30 08/17/17 15:29 07/19/17 05:30 Chlorhexidine Gluconate (Mireille-Hex 2%) 1 applic DAILY@1999 TOPIC 07/15/17 20:00 08/02/17 19:59 07/20/17 20:41 Clindamycin HCl (Cleocin) 450 mg EVERY 6 HOURS ORAL 07/16/17 18:00 07/23/17 17:59 07/20/17 18:18 Dextrose (Dextrose 50%) 25 ml STAT PRN IV HYPOGLYCEMIA 07/16/17 08:30 08/08/17 08:29 Diltiazem HCl (Cardizem) 30 mg EVERY 6 HOURS ORAL 07/16/17 00:00 08/09/17 19:29 07/20/17 18:18 Ethambutol HCl (Myambutol) 1,000 mg 3XW ORAL 07/16/17 09:00 07/21/17 23:59 07/18/17 18:12 Hydromorphone HCl (Dilaudid) 2 mg Q4H PRN IVP Severe Pain (Pain Scale 7-10) 07/16/17 21:15 07/23/17 21:14 07/20/17 18:19 Levofloxacin (Levaquin) 750 mg EVERY OTHER DAY@1999 ORAL 07/15/17 20:00 07/21/17 23:59 07/19/17 20:26 Lisinopril (Prinivil) 20 mg Q12HR ORAL 07/16/17 09:00 08/15/17 08:59 07/20/17 20:42 Metoprolol Tartrate (Lopressor) 100 mg Q12HR ORAL 07/15/17 21:00 08/10/17 20:59 07/20/17 20:41 Ondansetron HCl (Zofran) 4 mg Q6H PRN IVP Nausea & Vomiting 07/18/17 15:30 08/17/17 15:29 07/20/17 18:48 Promethazine HCl/ Codeine (Phenergan with Codeine) 5 ml Q4H PRN ORAL For Cough 07/15/17 19:32 07/22/17 19:31 Cristofer Antunez MD Jul 20, 2017 21:34
[2017-07-20] MEDS: ALPRAZolam 0.5mg tab ORAL PRN (23:58)
[2017-07-21] VITALS (8 sets, daily range): BP systolic 106–158; BP diastolic 63–89
--- NOTE | 2017-07-21 00:42 | General Progress Note ---
Assessment/Plan Assessment/Plan #. Anemia secondary to chronic disease. --> Hemoglobin levels have been stable. No blood transfusion required at this time. --> S/P abd CAT scan revealing evidence of hepatic cirrhosis. --> Continue to closely monitor and trend cbc daily. --> Anemia workup completed and reviewed. Iron 42, TIBC 180, Ferritin 593, B12 876. --> Ferritin is >500, hgb goal is >7 --> Anemia w/u has been reviewed --> ++Occult blood. Consider GI Services and Recs. #. Left leg dvt --> acute onset, will need to review final duplex results --> on apixaban daily x 3 months, low h/h will need to monitor closely --> okay to change to different anticoagulant if renal clearance an issue --> If h/h downtrends below 7.5, consider ivc filter placement. --> Hemoglobin currently >7.5 #. Thrombocytopenia. --> Hepatitis C ab ++, PCR - --> Monitor platelet level. Transfuse if platelet count <20k --> Levels remain low. # Hepatosplenomegaly. Ascites. There is also evidence of generalized anasarca, with pleural fluid and generalized subcutaneous edema --> Abd pain improved on pain management --> Refer to surgery note. #. Anemia of kidney disease --> HD as needed per nephrology team --> Monitor closely. --> Does not require iron at this time #. Generalized body ache related to fluid overload. #. End-stage renal disease, on hemodialysis as needed --> On hemodialysis #. Respiratory failure due to CHF and pneumonia. --> Providencia and pseudomonas. --> On vancomycin and ethambutol per ID. --> Chest pain improved at this time, on pain management. #. Shortness of breath. Due to underlying pneumonia. #. Atrial flutter with rapid ventricular response. On metoprolol and diltiazem. #. Conjunctivitis. Begin tobramycin. On anti TB treatment. On Amikacin and ethambutol. Continue telemetry. Subjective Date patient seen: Jul 20, 2017 Constitutional: Denies: no symptoms, chills, diaphoresis, fever, malaise, weakness, other HEENT: Denies: no symptoms, eye pain, blurred vision, tearing, double vision, ear pain, ear discharge, nose pain, nose congestion, throat pain, throat swelling, mouth pain, mouth swelling, other Cardiovascular: Denies: no symptoms, chest pain, edema, irregular heart rate, lightheadedness, palpitations, syncope, other Respiratory: Denies: no symptoms, cough, orthopnea, shortness of breath, SOB with excertion, SOB at rest, sputum, stridor, wheezing, other Gastrointestinal/Abdominal: Denies: no symptoms, abdomen distended, abdominal pain, black stools, tarry stools, blood in stool, constipated, diarrhea, difficulty swallowing, nausea, poor appetite, poor fluid intake, rectal bleeding , vomiting, other Neurologic/Psychiatric: Denies: no symptoms, anxiety, depressed, emotional problems, headache, numbness, paresthesia, pre-existing deficit, seizure, tingling, tremors, weakness, other Endocrine: Denies: no symptoms, excessive sweating, flushing, intolerance to cold, intolerance to heat, increased hunger, increased thirst, increased urine, unexplained weight gain, unexplained weight loss, other Allergies: Coded Allergies: IODINE AND IODIDE CONTAINING PRODUC (Verified Allergy, Mild, itching and pruritis, 06/25/17) Uncoded Allergies: CONTRAST/DYE (Allergy, Intermediate, PRURITIS AND ITCHING, 06/25/17) Subjective H/H stable. No fever. Objective Last 24 Hour Vital Signs Date Time Temp Pulse Resp B/P (MAP) Pulse Ox O2 Delivery O2 Flow Rate FiO2 07/21/17 00:00 98.9 66 20 125/81 97 Nasal Cannula 2.0 98.9 07/20/17 23:56 66 125/81 07/20/17 20:42 125/79 07/20/17 20:41 68 125/79 07/20/17 20:09 68 20 Nasal Cannula 2.0 28 07/20/17 20:09 Nasal Cannula 2.0 28 07/20/17 20:09 94 Nasal Cannula 2.0 28 07/20/17 20:00 99.4 68 21 125/79 98 99.4 07/20/17 18:18 74 132/86 07/20/17 16:00 99.3 74 19 132/86 95 Nasal Cannula 2.0 99.3 07/20/17 14:07 98.1 4/15/18 12:27 70 115/72 07/20/17 12:00 98.1 70 20 115/72 96 Nasal Cannula 2.0 98.1 07/20/17 09:19 97.8 07/20/17 08:48 112/68 07/20/17 08:47 70 112/68 07/20/17 08:00 97.8 70 19 112/68 98 Nasal Cannula 2.0 97.8 07/20/17 07:30 67 18 Nasal Cannula 2.0 28 07/20/17 07:30 Nasal Cannula 2.0 28 07/20/17 07:30 92 Nasal Cannula 2.0 28 07/20/17 05:42 69 122/68 07/20/17 04:00 98.0 69 20 122/68 98 Nasal Cannula 2.0 98.0 Intake and Output 07/20/17 07/21/17 19:00 07:00 Intake Total 2540 ml Balance 2540 ml Intake Oral 240 ml Other 2300 ml # Voids 3 Laboratory Tests 07/20/17 10:10: White Blood Count 4.9, Red Blood Count 3.13L, Hemoglobin 10.1L, Hematocrit 31.9L , Mean Corpuscular Volume 102H, Mean Corpuscular Hemoglobin 32.3H, Mean Corpuscular Hemoglobin Concent 31.7L, Red Cell Distribution Width 14.6, Platelet Count 92L, Mean Platelet Volume 7.1, Neutrophils (%) (Auto) , Lymphocytes (%) (Auto) , Monocytes (%) (Auto) , Eosinophils (%) (Auto) , Basophils (%) (Auto) , Differential Total Cells Counted 100, Neutrophils % ( Manual) 50, Lymphocytes % (Manual) 24, Monocytes % (Manual) 18H, Eosinophils % ( Manual) 8H, Basophils % (Manual) 0, Band Neutrophils 0, Platelet Estimate DecreasedL, Platelet Morphology Normal, Hypochromasia 1+, Anisocytosis 1+, Macrocytosis 1+, Sodium Level 136, Potassium Level 5.0, Chloride Level 98, Carbon Dioxide Level 27, Anion Gap 11, Blood Urea Nitrogen 65H, Creatinine 13.0H , Estimat Glomerular Filtration Rate 4.8, Glucose Level 105, Calcium Level 9.2 Height (Feet): 5 Height (Inches): 7.00 Weight (Pounds): 224 General Appearance: WD/WN, moderate distress EENT: normal ENT inspection Neck: normal alignment Cardiovascular: normal rate Respiratory/Chest: respiratory distress Abdomen: non tender, soft ZAK RUIZ Jul 21, 2017 00:42
[2017-07-21] MEDS: Clindamycin 150mg cap ORAL SCH ×4 (05:35→23:58)
[2017-07-21] MEDS: dilTIAZem HCl 30mg tab ORAL SCH ×3 (05:36→18:00)
[2017-07-21 06:50] LABS: HEMATOCRIT 29.8 % (42.0-52.0); HEMOGLOBIN 9.6 G/DL (14.2-18.0); MEAN CORPUSCULAR VOLUME 102 FL (80-99); PLATELET COUNT 93 K/UL (150-450); RED BLOOD COUNT 2.92 M/UL (4.70-6.10); RED CELL DISTRIBUTION WIDTH 14.2 % (11.6-14.8); WHITE BLOOD COUNT 4.6 K/UL (4.8-10.8)
[2017-07-21 06:51] LABS: ALANINE AMINOTRANSFERASE 20 U/L (12-78); ALBUMIN 2.4 G/DL (3.4-5.0); ALBUMIN/GLOBULIN RATIO 0.5 (1.0-2.7); ALKALINE PHOSPHATASE 175 U/L (46-116); ANION GAP 10 mmol/L (5-15); ASPARTATE AMINO TRANSFERASE 31 U/L (15-37); BILIRUBIN,TOTAL 1.3 MG/DL (0.2-1.0); BLOOD UREA NITROGEN 74 mg/dL (7-18); CALCIUM 9.2 MG/DL (8.5-10.1); CARBON DIOXIDE 28 MMOL/L (21-32); CHLORIDE 97 MMOL/L (98-107); CREATININE 14.2 MG/DL (0.55-1.30); POTASSIUM 5.4 MMOL/L (3.5-5.1); SODIUM 135 MMOL/L (136-145)
[2017-07-21 06:53] LABS: BILIRUBIN,DIRECT 0.7 MG/DL (0.0-0.3)
[2017-07-21] MEDS: Eliquis 2.5mg tablet ORAL SCH ×2 (09:04→20:22)
[2017-07-21] MEDS: Lisinopril 20mg tab ORAL SCH ×2 (09:04→20:23)
[2017-07-21] MEDS: ALPRAZolam 0.5mg tab ORAL PRN (09:05)
--- NOTE | 2017-07-21 09:28 | Diagnostic Imaging Report ---
. Indication: Dyspnea Technique: One view of the chest Comparison: 07/15/2017 Findings: The heart is enlarged. There is slightly increased bilateral diffuse interstitial and airspace opacity. Bilateral linear opacities are unchanged. Right midlung cavitary lesion is unchanged. Right jugular central venous catheter, left chest unifocal AICD again demonstrated Impression: Slightly increased bilateral interstitial and airspace edema versus infiltrates, over 6 days Other stable findings as described
--- NOTE | 2017-07-21 10:17 | Nephrology Progress Note ---
Assessment/Plan Problem List: (1) ESRD (end stage renal disease) on dialysis (2) Shortness of breath (3) Anemia Assessment Anemia ESRD , missed HD on admission , admitted with high K and pulmonary edema Acute respiratory distress due to volume overload elevated troponin r/o ACS h/o COPD ? exacerbation HTN urgency Cardiomyopathy L AICD anemia of chronic kidney disease Hx of CVA Plan Plan: HD next 07/21- will care for high K with HD Kayexelate for now Max UF Transfused Phos binders BP meds adjustment Optimize cardiac status per orders Subjective ROS Limited/Unobtainable: No Constitutional: Reports: malaise Objective Objective Last 24 Hour Vital Signs Date Time Temp Pulse Resp B/P (MAP) Pulse Ox O2 Delivery O2 Flow Rate FiO2 07/21/17 09:04 61 153/89 07/21/17 09:04 153/89 07/21/17 08:07 Nasal Cannula 2.0 28 07/21/17 08:06 56 22 Nasal Cannula 2.0 28 07/21/17 08:05 92 Nasal Cannula 2.0 28 07/21/17 08:00 97.7 61 20 153/89 96 Nasal Cannula 2.0 97.7 07/21/17 05:36 62 119/73 07/21/17 04:00 98.2 62 20 119/73 96 Nasal Cannula 2.0 98.2 07/21/17 00:00 98.9 66 20 125/81 97 Nasal Cannula 2.0 98.9 07/20/17 23:56 66 125/81 07/20/17 20:42 125/79 07/20/17 20:41 68 125/79 07/20/17 20:09 68 20 Nasal Cannula 2.0 28 07/20/17 20:09 Nasal Cannula 2.0 28 07/20/17 20:09 94 Nasal Cannula 2.0 28 07/20/17 20:00 99.4 68 21 125/79 98 99.4 07/20/17 18:18 74 132/86 07/20/17 16:00 99.3 74 19 132/86 95 Nasal Cannula 2.0 99.3 07/20/17 14:07 98.1 07/20/17 12:27 70 115/72 07/20/17 12:00 98.1 70 20 115/72 96 Nasal Cannula 2.0 98.1 Intake and Output 07/20/17 07/21/17 19:00 07:00 Intake Total 2540 ml 240 ml Output Total 100 ml Balance 2540 ml 140 ml Intake Oral 240 ml 240 ml Other 2300 ml Emesis 100 ml # Voids 3 1 Laboratory Tests 07/21/17 06:00: White Blood Count 4.6L, Red Blood Count 2.92L, Hemoglobin 9.6L, Hematocrit 29.8L , Mean Corpuscular Volume 102H, Mean Corpuscular Hemoglobin 32.8H, Mean Corpuscular Hemoglobin Concent 32.1, Red Cell Distribution Width 14.2, Platelet Count 93L, Mean Platelet Volume 7.7, Neutrophils (%) (Auto) , Lymphocytes (%) ( Auto) , Monocytes (%) (Auto) , Eosinophils (%) (Auto) , Basophils (%) (Auto) , Neutrophils % (Manual) [Pending], Lymphocytes % (Manual) [Pending], Platelet Estimate [Pending], Platelet Morphology [Pending], Sodium Level 135L, Potassium Level 5.4H, Chloride Level 97L, Carbon Dioxide Level 28, Anion Gap 10, Blood Urea Nitrogen 74H, Creatinine 14.2H, Estimat Glomerular Filtration Rate 4.4, Glucose Level 83, Calcium Level 9.2, Total Bilirubin 1.3H, Direct Bilirubin 0.7H , Aspartate Amino Transf (AST/SGOT) 31, Alanine Aminotransferase (ALT/SGPT) 20, Alkaline Phosphatase 175H, Pro-B-Type Natriuretic Peptide 87137K, Total Protein 7.3, Albumin 2.4L, Globulin 4.9, Albumin/Globulin Ratio 0.5L Height (Feet): 5 Height (Inches): 7.00 Weight (Pounds): 224 General Appearance: no apparent distress Objective no change LIAM MONTELONGO Jul 21, 2017 10:17
--- NOTE | 2017-07-21 11:03 | Internal Med Progress Note ---
Subjective Date of Service: Jul 21, 2017 Physician Name Zoey Pires Attending Physician Chaitanya Weinstein MD Current Medications Medications (Trade) Dose Ordered Sig/Jose Route PRN Reason Start Time Stop Time Status Last Admin Dose Admin Alprazolam (Xanax) 2 mg DAILYPRN PRN ORAL For Anxiety 07/16/17 15:15 07/23/17 15:14 07/21/17 09:05 Amikacin Protocol (Amikacin pharmacy to dose) 1 ea DAILY PRN MISC Per rx protocol 07/16/17 09:00 08/03/17 15:14 Amikacin Sulfate 800 mg/Dextrose 113.2 ml @ 226.4 mls/ hr FRI-FRI-FRI IV 07/18/17 21:00 07/25/17 20:59 07/18/17 21:06 Apixaban (Eliquis) 2.5 mg Q12HR ORAL 07/16/17 09:00 08/15/17 08:59 07/21/17 09:04 Carisoprodol (Soma) 350 mg Q6H PRN ORAL Muscle Spasm 07/18/17 15:30 08/17/17 15:29 07/19/17 05:30 Chlorhexidine Gluconate (Mireille-Hex 2%) 1 applic DAILY@2000 TOPIC 07/15/17 20:00 08/02/17 19:59 07/20/17 20:41 Clindamycin HCl (Cleocin) 450 mg EVERY 6 HOURS ORAL 07/16/17 18:00 07/23/17 17:59 07/21/17 05:35 Dextrose (Dextrose 50%) 25 ml STAT PRN IV HYPOGLYCEMIA 07/16/17 08:30 08/08/17 08:29 Diltiazem HCl (Cardizem) 30 mg EVERY 6 HOURS ORAL 07/16/17 00:00 08/09/17 19:29 07/21/17 05:36 Ethambutol HCl (Myambutol) 1,000 mg 3XW ORAL 07/16/17 09:00 07/21/17 23:59 07/21/17 09:04 Hydromorphone HCl (Dilaudid) 2 mg Q4H PRN IVP Severe Pain (Pain Scale 7-10) 07/16/17 21:15 07/23/17 21:14 07/21/17 09:05 Levofloxacin (Levaquin) 750 mg EVERY OTHER DAY@2000 ORAL 07/15/17 20:00 07/21/17 23:59 07/19/17 20:26 Lisinopril (Prinivil) 20 mg Q12HR ORAL 07/16/17 09:00 08/15/17 08:59 07/21/17 09:04 Metoprolol Tartrate (Lopressor) 100 mg Q12HR ORAL 07/15/17 21:00 08/10/17 20:59 07/21/17 09:04 Ondansetron HCl (Zofran) 4 mg Q6H PRN IVP Nausea & Vomiting 07/18/17 15:30 08/17/17 15:29 07/20/17 18:48 Promethazine HCl/ Codeine (Phenergan with Codeine) 5 ml Q4H PRN ORAL For Cough 07/15/17 19:32 07/22/17 19:31 Allergies: Coded Allergies: IODINE AND IODIDE CONTAINING PRODUC (Verified Allergy, Mild, itching and pruritis, 06/25/17) Uncoded Allergies: CONTRAST/DYE (Allergy, Intermediate, PRURITIS AND ITCHING, 06/25/17) ROS Limited/Unobtainable: No Constitutional: Reports: no symptoms HEENT: Reports: no symptoms Cardiovascular: Reports: no symptoms Respiratory: Reports: no symptoms Gastrointestinal/Abdominal: Reports: no symptoms Genitourinary: Reports: no symptoms Neurologic/Psychiatric: Reports: no symptoms Subjective 57 YO M admitted with chest pain and shortness of breath. Now pneumonia and candelaria heart failure. Back on nasal canula. Cover for Int Misbah-Dr Weinstein. Now atrial flutter Objective Last Vital Signs Date Time Temp Pulse Resp B/P (MAP) Pulse Ox O2 Delivery O2 Flow Rate FiO2 07/21/17 09:04 61 153/89 07/21/17 08:07 Nasal Cannula 2.0 28 07/21/17 08:06 22 07/21/17 08:05 92 07/21/17 08:00 97.7 97.7 Laboratory Tests Test 07/21/17 06:00 White Blood Count 4.6 K/UL (4.8-10.8) L Red Blood Count 2.92 M/UL (4.70-6.10) L Hemoglobin 9.6 G/DL (14.2-18.0) L Hematocrit 29.8 % (42.0-52.0) L Mean Corpuscular Volume 102 FL (80-99) H Mean Corpuscular Hemoglobin 32.8 PG (27.0-31.0) H Mean Corpuscular Hemoglobin Concent 32.1 G/DL (32.0-36.0) Red Cell Distribution Width 14.2 % (11.6-14.8) Platelet Count 93 K/UL (150-450) L Mean Platelet Volume 7.7 FL (6.5-10.1) Neutrophils (%) (Auto) % (45.0-75.0) Lymphocytes (%) (Auto) % (20.0-45.0) Monocytes (%) (Auto) % (1.0-10.0) Eosinophils (%) (Auto) % (0.0-3.0) Basophils (%) (Auto) % (0.0-2.0) Differential Total Cells Counted 100 Neutrophils % (Manual) 50 % (45-75) Lymphocytes % (Manual) 21 % (20-45) Monocytes % (Manual) 17 % (1-10) H Eosinophils % (Manual) 11 % (0-3) H Basophils % (Manual) 0 % (0-2) Band Neutrophils 1 % (0-8) Platelet Estimate Decreased L Platelet Morphology Normal Hypochromasia 2+ Anisocytosis 1+ Macrocytosis 1+ Sodium Level 135 MMOL/L (136-145) L Potassium Level 5.4 MMOL/L (3.5-5.1) H Chloride Level 97 MMOL/L (98-107) L Carbon Dioxide Level 28 MMOL/L (21-32) Anion Gap 10 mmol/L (5-15) Blood Urea Nitrogen 74 mg/dL (7-18) H Creatinine 14.2 MG/DL (0.55-1.30) H Estimat Glomerular Filtration Rate 4.4 mL/min (>60) Glucose Level 83 MG/DL (74-106) Calcium Level 9.2 MG/DL (8.5-10.1) Total Bilirubin 1.3 MG/DL (0.2-1.0) H Direct Bilirubin 0.7 MG/DL (0.0-0.3) H Aspartate Amino Transf (AST/SGOT) 31 U/L (15-37) Alanine Aminotransferase (ALT/SGPT) 20 U/L (12-78) Alkaline Phosphatase 175 U/L (46-116) H Pro-B-Type Natriuretic Peptide 50553 pg/mL (0-125) H Total Protein 7.3 G/DL (6.4-8.2) Albumin 2.4 G/DL (3.4-5.0) L Globulin 4.9 g/dL Albumin/Globulin Ratio 0.5 (1.0-2.7) L Intake and Output 07/20/17 07/21/17 19:00 07:00 Intake Total 2540 ml 240 ml Output Total 100 ml Balance 2540 ml 140 ml Intake Oral 240 ml 240 ml Other 2300 ml Emesis 100 ml # Voids 3 1 Objective General Appearance: WD/WN, alert, moderate distress EENT: PERRL/EOMI, normal ENT inspection Neck: non-tender, normal alignment, supple, normal inspection Cardiovascular: Tachycardia; normal peripheral pulses, normal rate, regular rhythm, no gallop/murmur, no JVD Respiratory/Chest: Nasal canula; respiratory distress, crackles/rales, rhonchi - bilaterally, expiratory wheezing Abdomen: normal bowel sounds, non tender, soft, no organomegaly, no mass Extremities: normal range of motion Neurologic: manager cafe 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, no motor/sensory deficits Skin: normal pigmentation, warm/dry Assessment/Plan Problem List: (1) Atrial flutter with rapid ventricular response Assessment & Plan: D/C coreg; start metoprolol and IV diltiazem per cardiology consult. (2) Respiratory failure Assessment & Plan: CHF and Pneumonia. Currently on nasal canula. See pulmonay note. (3) Pleuritic chest pain (4) Hemoptysis Assessment & Plan: Due to pneumonia (5) Pneumonia Assessment & Plan: Providencia and pseudamonas. RUL and cavitary. Concerning for TB. Await AFB cultures-see ID consult. Continue ethambutol, amikacin, levaquin and clindamycin per ID (6) Shortness of breath (7) ESRD (end stage renal disease) on dialysis Assessment & Plan: See nephrology note. Next Hemodialysis 07/21/17 per nephrology (8) Hyperkalemia Assessment & Plan: Due to renal failure. Hemodialysis 06/13/17 per nephrology (9) COPD (chronic obstructive pulmonary disease) (10) HTN (hypertension) Assessment & Plan: Continue coreg and lisinopril. (11) CHF (congestive heart failure) (12) Elevated troponin Assessment & Plan: ?due to renal failure? See cardiology note. (13) Intractable abdominal pain Assessment & Plan: See surgery note (14) Conjunctivitis Assessment & Plan: start tobramycin (15) Diarrhea Assessment & Plan: C. Diff Status: stable Assessment/Plan Discharge planning - coordination with [facility] pending ZOEY PIRES Jul 21, 2017 11:03
--- NOTE | 2017-07-21 13:37 | Pulmonology Progress Note ---
Assessment/Plan Problems: (1) Respiratory failure (2) Pneumonia (3) Rapid atrial fibrillation (4) HTN (hypertension) (5) ESRD (end stage renal disease) on dialysis (6) Anemia Assessment/Plan CXR 07/21: RUL cavitary lesion not changed continue telemetry, c/o generalized pain slowly improving onNC HD by psychologist experimental prbc prn on anti TB meds wtih IV Amikacin, ethambutol continue current meds Subjective ROS Limited/Unobtainable: No Allergies: Coded Allergies: IODINE AND IODIDE CONTAINING PRODUC (Verified Allergy, Mild, itching and pruritis, 06/25/17) Uncoded Allergies: CONTRAST/DYE (Allergy, Intermediate, PRURITIS AND ITCHING, 06/25/17) Objective Last 24 Hour Vital Signs Date Time Temp Pulse Resp B/P (MAP) Pulse Ox O2 Delivery O2 Flow Rate FiO2 07/21/17 12:15 78 116/73 07/21/17 12:00 97.3 65 20 116/73 96 Nasal Cannula 2.0 97.3 07/21/17 09:04 61 153/89 07/21/17 09:04 153/89 07/21/17 08:07 Nasal Cannula 2.0 28 07/21/17 08:06 56 22 Nasal Cannula 2.0 28 07/21/17 08:05 92 Nasal Cannula 2.0 28 07/21/17 08:00 97.7 61 20 153/89 96 Nasal Cannula 2.0 97.7 07/21/17 05:36 62 119/73 07/21/17 04:00 98.2 62 20 119/73 96 Nasal Cannula 2.0 98.2 07/21/17 00:00 98.9 66 20 125/81 97 Nasal Cannula 2.0 98.9 07/20/17 23:56 66 125/81 07/20/17 20:42 125/79 07/20/17 20:41 68 125/79 07/20/17 20:09 68 20 Nasal Cannula 2.0 28 07/20/17 20:09 Nasal Cannula 2.0 28 07/20/17 20:09 94 Nasal Cannula 2.0 28 07/20/17 20:00 99.4 68 21 125/79 98 99.4 07/20/17 18:18 74 132/86 07/20/17 16:00 99.3 74 19 132/86 95 Nasal Cannula 2.0 99.3 07/20/17 14:07 98.1 Intake and Output 07/20/17 07/21/17 19:00 07:00 Intake Total 2540 ml 240 ml Output Total 100 ml Balance 2540 ml 140 ml Intake Oral 240 ml 240 ml Other 2300 ml Emesis 100 ml # Voids 3 1 Objective General Appearance: WD/WN HEENT: normocephalic, atraumatic, anicteric Respiratory/Chest: loud rhonchi Cardiovascular: normal peripheral pulses, normal rate, regular rhythm Abdomen: normal bowel sounds, soft, non tender, no organomegaly Genitourinary: normal external genitalia Extremities: no cyanosis Skin: no rash, no lesions Neurologic/Psychiatric: insole coverer 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, no motor/sensory deficits Lymphatic: no neck adenopathy, no groin adenopathy Laboratory Tests 07/21/17 06:00: White Blood Count 4.6L, Red Blood Count 2.92L, Hemoglobin 9.6L, Hematocrit 29.8L , Mean Corpuscular Volume 102H, Mean Corpuscular Hemoglobin 32.8H, Mean Corpuscular Hemoglobin Concent 32.1, Red Cell Distribution Width 14.2, Platelet Count 93L, Mean Platelet Volume 7.7, Neutrophils (%) (Auto) , Lymphocytes (%) ( Auto) , Monocytes (%) (Auto) , Eosinophils (%) (Auto) , Basophils (%) (Auto) , Differential Total Cells Counted 100, Neutrophils % (Manual) 50, Lymphocytes % ( Manual) 21, Monocytes % (Manual) 17H, Eosinophils % (Manual) 11H, Basophils % ( Manual) 0, Band Neutrophils 1, Platelet Estimate DecreasedL, Platelet Morphology Normal, Hypochromasia 2+, Anisocytosis 1+, Macrocytosis 1+, Sodium Level 135L, Potassium Level 5.4H, Chloride Level 97L, Carbon Dioxide Level 28, Anion Gap 10, Blood Urea Nitrogen 74H, Creatinine 14.2H, Estimat Glomerular Filtration Rate 4.4, Glucose Level 83, Calcium Level 9.2, Total Bilirubin 1.3H, Direct Bilirubin 0.7H, Aspartate Amino Transf (AST/SGOT) 31, Alanine Aminotransferase (ALT/SGPT) 20, Alkaline Phosphatase 175H, Pro-B-Type Natriuretic Peptide 31892M, Total Protein 7.3, Albumin 2.4L, Globulin 4.9, Albumin/Globulin Ratio 0.5L Current Medications Medications (Trade) Dose Ordered Sig/Jose Route PRN Reason Start Time Stop Time Status Last Admin Dose Admin Alprazolam (Xanax) 2 mg DAILYPRN PRN ORAL For Anxiety 07/16/17 15:15 07/23/17 15:14 07/21/17 09:05 Amikacin Protocol (Amikacin pharmacy to dose) 1 ea DAILY PRN MISC Per rx protocol 07/16/17 09:00 08/03/17 15:14 Amikacin Sulfate 800 mg/Dextrose 113.2 ml @ 226.4 mls/ hr FRI-FRI-FRI IV 07/18/17 21:00 07/25/17 20:59 07/18/17 21:06 Apixaban (Eliquis) 2.5 mg Q12HR ORAL 07/16/17 09:00 08/15/17 08:59 07/21/17 09:04 Carisoprodol (Soma) 350 mg Q6H PRN ORAL Muscle Spasm 07/18/17 15:30 08/17/17 15:29 07/21/17 12:14 Chlorhexidine Gluconate (Mireille-Hex 2%) 1 applic DAILY@2000 TOPIC 07/15/17 20:00 08/02/17 19:59 07/20/17 20:41 Clindamycin HCl (Cleocin) 450 mg EVERY 6 HOURS ORAL 07/16/17 18:00 07/23/17 17:59 07/21/17 12:14 Dextrose (Dextrose 50%) 25 ml STAT PRN IV HYPOGLYCEMIA 07/16/17 08:30 08/08/17 08:29 Diltiazem HCl (Cardizem) 30 mg EVERY 6 HOURS ORAL 07/16/17 00:00 08/09/17 19:29 07/21/17 12:15 Ethambutol HCl (Myambutol) 1,000 mg 3XW ORAL 07/16/17 09:00 07/21/17 23:59 07/21/17 09:04 Hydromorphone HCl (Dilaudid) 2 mg Q4H PRN IVP Severe Pain (Pain Scale 7-10) 07/16/17 21:15 07/23/17 21:14 07/21/17 09:05 Levofloxacin (Levaquin) 750 mg EVERY OTHER DAY@1999 ORAL 07/15/17 20:00 07/21/17 23:59 07/19/17 20:26 Lisinopril (Prinivil) 20 mg Q12HR ORAL 07/16/17 09:00 08/15/17 08:59 07/21/17 09:04 Metoprolol Tartrate (Lopressor) 100 mg Q12HR ORAL 07/15/17 21:00 08/10/17 20:59 07/21/17 09:04 Ondansetron HCl (Zofran) 4 mg Q6H PRN IVP Nausea & Vomiting 07/18/17 15:30 08/17/17 15:29 07/20/17 18:48 Promethazine HCl/ Codeine (Phenergan with Codeine) 5 ml Q4H PRN ORAL For Cough 07/15/17 19:32 07/22/17 19:31 Christine Morgan MD Jul 21, 2017 13:37
--- NOTE | 2017-07-21 18:55 | Cardiology Progress Note ---
Assessment/Plan Assessment/Plan pleuritic chest pain neg recent sig perfusion abn; systolic dysfunction on mild degree involving the septum cavitating lung lesion improved on recent ct esrd htn anemia icd hx biotonix , interrogated 07/09/19 edema afib / atrial tachy thrombocytopenia iodine allergy remains in sinus plt low is on eliquis for stroke prevention venous duplex neg echo reviewed swma in septum (possible) as tech difficult study ef 45% afb smear neg ct noted icd interrogated no shock fucntion fine cxr much improved on higher volume of UF with dialysis still needs more fluid removed on acei in crease dose tomorrow Subjective Cardiovascular: Denies: chest pain, lightheadedness Respiratory: Reports: shortness of breath Gastrointestinal/Abdominal: Denies: abdominal pain Genitourinary: Denies: burning Objective Last 24 Hour Vital Signs Date Time Temp Pulse Resp B/P (MAP) Pulse Ox O2 Delivery O2 Flow Rate FiO2 07/21/17 18:00 72 158/71 07/21/17 16:00 97.2 72 20 158/71 96 Nasal Cannula 2.0 97.2 07/21/17 12:15 78 116/73 07/21/17 12:00 97.3 65 20 116/73 96 Nasal Cannula 2.0 97.3 07/21/17 09:04 61 153/89 07/21/17 09:04 153/89 07/21/17 08:07 Nasal Cannula 2.0 28 07/21/17 08:06 56 22 Nasal Cannula 2.0 28 07/21/17 08:05 92 Nasal Cannula 2.0 28 07/21/17 08:00 97.7 61 20 153/89 96 Nasal Cannula 2.0 97.7 07/21/17 05:36 62 119/73 07/21/17 04:00 98.2 62 20 119/73 96 Nasal Cannula 2.0 98.2 07/21/17 00:00 98.9 66 20 125/81 97 Nasal Cannula 2.0 98.9 07/20/17 23:56 66 125/81 07/20/17 20:42 125/79 07/20/17 20:41 68 125/79 07/20/17 20:09 68 20 Nasal Cannula 2.0 28 07/20/17 20:09 Nasal Cannula 2.0 28 07/20/17 20:09 94 Nasal Cannula 2.0 28 07/20/17 20:00 99.4 68 21 125/79 98 99.4 General Appearance: alert Neck: no JVD Cardiovascular: regular rhythm Respiratory/Chest: lungs clear Abdomen: normal bowel sounds, non tender, soft Extremities: moderate edema Intake and Output 07/20/17 07/21/17 19:00 07:00 Intake Total 2540 ml 240 ml Output Total 100 ml Balance 2540 ml 140 ml Intake Oral 240 ml 240 ml Other 2300 ml Emesis 100 ml # Voids 3 1 Laboratory Tests Test 07/21/17 06:00 White Blood Count 4.6 K/UL (4.8-10.8) L Red Blood Count 2.92 M/UL (4.70-6.10) L Hemoglobin 9.6 G/DL (14.2-18.0) L Hematocrit 29.8 % (42.0-52.0) L Mean Corpuscular Volume 102 FL (80-99) H Mean Corpuscular Hemoglobin 32.8 PG (27.0-31.0) H Mean Corpuscular Hemoglobin Concent 32.1 G/DL (32.0-36.0) Red Cell Distribution Width 14.2 % (11.6-14.8) Platelet Count 93 K/UL (150-450) L Mean Platelet Volume 7.7 FL (6.5-10.1) Neutrophils (%) (Auto) % (45.0-75.0) Lymphocytes (%) (Auto) % (20.0-45.0) Monocytes (%) (Auto) % (1.0-10.0) Eosinophils (%) (Auto) % (0.0-3.0) Basophils (%) (Auto) % (0.0-2.0) Differential Total Cells Counted 100 Neutrophils % (Manual) 50 % (45-75) Lymphocytes % (Manual) 21 % (20-45) Monocytes % (Manual) 17 % (1-10) H Eosinophils % (Manual) 11 % (0-3) H Basophils % (Manual) 0 % (0-2) Band Neutrophils 1 % (0-8) Platelet Estimate Decreased L Platelet Morphology Normal Hypochromasia 2+ Anisocytosis 1+ Macrocytosis 1+ Sodium Level 135 MMOL/L (136-145) L Potassium Level 5.4 MMOL/L (3.5-5.1) H Chloride Level 97 MMOL/L (98-107) L Carbon Dioxide Level 28 MMOL/L (21-32) Anion Gap 10 mmol/L (5-15) Blood Urea Nitrogen 74 mg/dL (7-18) H Creatinine 14.2 MG/DL (0.55-1.30) H Estimat Glomerular Filtration Rate 4.4 mL/min (>60) Glucose Level 83 MG/DL (74-106) Calcium Level 9.2 MG/DL (8.5-10.1) Total Bilirubin 1.3 MG/DL (0.2-1.0) H Direct Bilirubin 0.7 MG/DL (0.0-0.3) H Aspartate Amino Transf (AST/SGOT) 31 U/L (15-37) Alanine Aminotransferase (ALT/SGPT) 20 U/L (12-78) Alkaline Phosphatase 175 U/L (46-116) H Pro-B-Type Natriuretic Peptide 36448 pg/mL (0-125) H Total Protein 7.3 G/DL (6.4-8.2) Albumin 2.4 G/DL (3.4-5.0) L Globulin 4.9 g/dL Albumin/Globulin Ratio 0.5 (1.0-2.7) L PRECIOUS GARCIA Jul 21, 2017 18:55
--- NOTE | 2017-07-21 19:34 | Infectious Diseases Prog Note ---
Assessment/Plan Assessment/Plan Cavitary PNA. SCx: Neg ( m/l necrotizing Pneum, vs anaerobic abscess, doubt TB or fungal ) ; improving - 07/09 SP BAL Cx( Abby and MOJGAN : Colonizers ) , Path : Neg for fungus and Malignancy - -CT 07/15 : he overall lesion appears smaller, measuring 6.3 cm AP by 3.6 cm transverse by 2.3 cm craniocaudad currently -CT chest 06/25: Since the prior study of 06/15/2017, and. From further reduction in size of previously demonstrated thick walled right upper lobe cavitary mass. This was previously thought to most likely represent a cavitary inflammatory mass, and the interim reduction in size certainly supports that. Much less likely a cavitary neoplasm, but follow-up to resolution is recommended. Markedly improved parenchymal disease bilaterally, since the previous study. Nonetheless , extensive atelectasis and groundglass consolidation persists. Persistent small right pleural effusion, smaller than on the prior study. Resolved left pleural effusion 6 mm nodular opacity in the right upper lobe, not evident previously but likely obscured by surrounding consolidated lung parenchyma. This should be followed up in 6 months to one year depending on results of interim follow-up exams T-SPOT :Neg AFB x 3 : Neg MTB PCR x2 : neg cryptococcus Ag, Histoplams mycelial Ab , Blastomyces ab : neg ; histoplasma yeast ab (not able to be done due to anticomplementary activity) -Cocci, Asp ag p -Fungitell + 144 (?aspergillosis vs m/l false positive) CT chest 06/15: Slightly smaller (6 cm diameter ) but mostly unchanged cavitary lesion in the right lung, previously thought to represent a cavitating inflammatory process. Lung abscess is certainly a possibility. Fairly extensive bilateral pulmonary parenchymal consolidation, slightly increased from previous exam of 06/05/2017. Likely a combination of pulmonary edema and pneumonia. Small right and trace left pleural effusion, new/increased from the previous study. CT 06/05: 7.8 x 5.3 x 6.6 cm dense opacity in the posterior inferior right upper lobe with a central cavitation. CRP 14 Influenza negative Coccidioidal ,Galactomannan : NEG ( PER LAB ) Transaminitis , improving after stopping rifampin /2 Hep C cirrhosis- no active Hep C as VL not detected -CT abd/p: Evidence of hepatic cirrhosis. Hepatosplenomegaly. evidence of generalized anasarca, with pleural fluid and generalized subcutaneous edema. Cholelithiasis, also previously reported. Possible diverticulosis. No evidence of diverticulitis US Abd : Cholelithiasis. There is gallbladder wall thickening, likely related to hemodynamic abnormalities Splenomegaly. Evidence of hepatic cirrhosis HIV : NEG Hep Panel B neg , C Ab : +ve , VL not detected leukopenia and TCP 2/2 splenomegaly Seizure disorder History of CVA History of pacemaker placement Hyperlipidemia Hypertension COPD/asthma End-stage renal disease, on hemodialysis Diabetes Anxiety Anemia Echo, ejection fraction 45% to 50%. PLAN: - Cont oral Clinda d# 6 ( till resolution of of abscess) ( abx d# 46 ) Continue empiric Ethambutol and Levaquin, Amikacin ( empiric TB AB Rx d# 35 as per TB control request, this was [facility] TB control , still insists to [facility] w TB regiment till final cultures are back ) 07/16 SP DC Zoysn d# 9 ( for SOB and CXR worsen , better coverage of anaerobes, PSA and Providencia ); 07/07 SP Dc Flagyl 07/06 SP Voriconazole ( low antonio for fungal infection , and in the setting of cirrhosis ) 07/05 SP Micafungin abx d#20 , Rifampin 600mg qd #10 07/01 SP Ceftriaxone #10 06/28 SP Amikacin #15 06/25 SP PO Voriconazole #3 06/20 SP Liposomal Ampho #8 06/17 SP IV Vancomycin #14, Meropenem #5 06/13 SP Zosyn d# 10 06/08 SP Zithromax D# 6 f/u sputum culture (fungal, and AFB x3). BAL fungal and AFB Cx : P - CMP called Micro lab to follow on the Culture results ( AFB ) called IP to [facility] TB control re sopping TB Meds left a message from TB control Subjective Allergies: Coded Allergies: IODINE AND IODIDE CONTAINING PRODUC (Verified Allergy, Mild, itching and pruritis, 06/25/17) Uncoded Allergies: CONTRAST/DYE (Allergy, Intermediate, PRURITIS AND ITCHING, 06/25/17) Subjective comfortable Objective Vital Signs Last 24 Hour Vital Signs Date Time Temp Pulse Resp B/P (MAP) Pulse Ox O2 Delivery O2 Flow Rate FiO2 07/21/17 18:00 72 158/71 07/21/17 16:30 Room Air 07/21/17 16:30 97.0 63 16 133/77 Room Air 97.0 07/21/17 16:00 97.2 72 20 158/71 96 Nasal Cannula 2.0 97.2 07/21/17 12:15 78 116/73 07/21/17 12:00 97.3 65 20 116/73 96 Nasal Cannula 2.0 97.3 07/21/17 09:04 61 153/89 07/21/17 09:04 153/89 07/21/17 08:07 Nasal Cannula 2.0 28 07/21/17 08:06 56 22 Nasal Cannula 2.0 28 07/21/17 08:05 92 Nasal Cannula 2.0 28 07/21/17 08:00 97.7 61 20 153/89 96 Nasal Cannula 2.0 97.7 07/21/17 05:36 62 119/73 07/21/17 04:00 98.2 62 20 119/73 96 Nasal Cannula 2.0 98.2 07/21/17 00:00 98.9 66 20 125/81 97 Nasal Cannula 2.0 98.9 07/20/17 23:56 66 125/81 07/20/17 20:42 125/79 07/20/17 20:41 68 125/79 07/20/17 20:09 68 20 Nasal Cannula 2.0 28 07/20/17 20:09 Nasal Cannula 2.0 28 07/20/17 20:09 94 Nasal Cannula 2.0 28 07/20/17 20:00 99.4 68 21 125/79 98 99.4 Height (Feet): 5 Height (Inches): 7.00 Weight (Pounds): 224 HEENT: anicteric Respiratory/Chest: no respiratory distress Cardiovascular: regular rhythm Abdomen: soft, non tender Laboratory Tests Test 07/21/17 06:00 White Blood Count 4.6 K/UL (4.8-10.8) L Red Blood Count 2.92 M/UL (4.70-6.10) L Hemoglobin 9.6 G/DL (14.2-18.0) L Hematocrit 29.8 % (42.0-52.0) L Mean Corpuscular Volume 102 FL (80-99) H Mean Corpuscular Hemoglobin 32.8 PG (27.0-31.0) H Mean Corpuscular Hemoglobin Concent 32.1 G/DL (32.0-36.0) Red Cell Distribution Width 14.2 % (11.6-14.8) Platelet Count 93 K/UL (150-450) L Mean Platelet Volume 7.7 FL (6.5-10.1) Neutrophils (%) (Auto) % (45.0-75.0) Lymphocytes (%) (Auto) % (20.0-45.0) Monocytes (%) (Auto) % (1.0-10.0) Eosinophils (%) (Auto) % (0.0-3.0) Basophils (%) (Auto) % (0.0-2.0) Differential Total Cells Counted 100 Neutrophils % (Manual) 50 % (45-75) Lymphocytes % (Manual) 21 % (20-45) Monocytes % (Manual) 17 % (1-10) H Eosinophils % (Manual) 11 % (0-3) H Basophils % (Manual) 0 % (0-2) Band Neutrophils 1 % (0-8) Platelet Estimate Decreased L Platelet Morphology Normal Hypochromasia 2+ Anisocytosis 1+ Macrocytosis 1+ Sodium Level 135 MMOL/L (136-145) L Potassium Level 5.4 MMOL/L (3.5-5.1) H Chloride Level 97 MMOL/L (98-107) L Carbon Dioxide Level 28 MMOL/L (21-32) Anion Gap 10 mmol/L (5-15) Blood Urea Nitrogen 74 mg/dL (7-18) H Creatinine 14.2 MG/DL (0.55-1.30) H Estimat Glomerular Filtration Rate 4.4 mL/min (>60) Glucose Level 83 MG/DL (74-106) Calcium Level 9.2 MG/DL (8.5-10.1) Total Bilirubin 1.3 MG/DL (0.2-1.0) H Direct Bilirubin 0.7 MG/DL (0.0-0.3) H Aspartate Amino Transf (AST/SGOT) 31 U/L (15-37) Alanine Aminotransferase (ALT/SGPT) 20 U/L (12-78) Alkaline Phosphatase 175 U/L (46-116) H Pro-B-Type Natriuretic Peptide 31032 pg/mL (0-125) H Total Protein 7.3 G/DL (6.4-8.2) Albumin 2.4 G/DL (3.4-5.0) L Globulin 4.9 g/dL Albumin/Globulin Ratio 0.5 (1.0-2.7) L Current Medications Medications (Trade) Dose Ordered Sig/Jose Route PRN Reason Start Time Stop Time Status Last Admin Dose Admin Alprazolam (Xanax) 2 mg DAILYPRN PRN ORAL For Anxiety 07/16/17 15:15 07/23/17 15:14 07/21/17 09:05 Amikacin Protocol (Amikacin pharmacy to dose) 1 ea DAILY PRN MISC Per rx protocol 07/16/17 09:00 08/03/17 15:14 Amikacin Sulfate 800 mg/Dextrose 113.2 ml @ 226.4 mls/ hr FRI-FRI-FRI IV 07/18/17 21:00 07/25/17 20:59 07/18/17 21:06 Apixaban (Eliquis) 2.5 mg Q12HR ORAL 07/16/17 09:00 08/15/17 08:59 07/21/17 09:04 Carisoprodol (Soma) 350 mg Q6H PRN ORAL Muscle Spasm 07/18/17 15:30 08/17/17 15:29 07/21/17 12:14 Chlorhexidine Gluconate (Mireille-Hex 2%) 1 applic DAILY@2000 TOPIC 07/15/17 20:00 08/02/17 19:59 07/20/17 20:41 Clindamycin HCl (Cleocin) 450 mg EVERY 6 HOURS ORAL 07/16/17 18:00 07/23/17 17:59 07/21/17 12:14 Dextrose (Dextrose 50%) 25 ml STAT PRN IV HYPOGLYCEMIA 07/16/17 08:30 08/08/17 08:29 Diltiazem HCl (Cardizem) 60 mg EVERY 6 HOURS ORAL 07/22/17 00:00 08/21/17 00:00 Ethambutol HCl (Myambutol) 1,000 mg 3XW ORAL 07/16/17 09:00 07/21/17 23:59 07/21/17 09:04 Hydromorphone HCl (Dilaudid) 2 mg Q4H PRN IVP Severe Pain (Pain Scale 7-10) 07/16/17 21:15 07/23/17 21:14 07/21/17 15:04 Levofloxacin (Levaquin) 750 mg EVERY OTHER DAY@1999 ORAL 07/15/17 20:00 07/21/17 23:59 07/19/17 20:26 Lisinopril (Prinivil) 20 mg Q12HR ORAL 07/16/17 09:00 08/15/17 08:59 07/21/17 09:04 Metoprolol Tartrate (Lopressor) 100 mg Q12HR ORAL 07/15/17 21:00 08/10/17 20:59 07/21/17 09:04 Ondansetron HCl (Zofran) 4 mg Q6H PRN IVP Nausea & Vomiting 07/18/17 15:30 08/17/17 15:29 07/20/17 18:48 Promethazine HCl/ Codeine (Phenergan with Codeine) 5 ml Q4H PRN ORAL For Cough 07/15/17 19:32 07/22/17 19:31 Cristofer Antunez MD Jul 21, 2017 19:34
[2017-07-21] MEDS: Dyna-Hex 2% Top Sol 2oz TOPIC SCH (20:21)
[2017-07-21] MEDS: AMIKACIN IV SCH (20:22)
[2017-07-21] MEDS: D5W IV SCH (20:22)
--- NOTE | 2017-07-21 22:15 | General Progress Note ---
Assessment/Plan Assessment/Plan #. Anemia secondary to chronic disease. --> Hemoglobin levels have been stable. No blood transfusion required at this time. --> S/P abd CAT scan revealing evidence of hepatic cirrhosis. --> Continue to closely monitor and trend cbc daily. --> Anemia workup completed and reviewed. Iron 42, TIBC 180, Ferritin 593, B12 876. --> Ferritin is >500, hgb goal is >7 --> Anemia w/u has been reviewed --> ++Occult blood. Consider GI Services and Recs. #. Left leg dvt --> acute onset, will need to review final duplex results --> on apixaban daily x 3 months, H/H has been stable. INR improved. --> okay to change to different anticoagulant if renal clearance an issue --> If h/h downtrends below 7.5, consider ivc filter placement. --> Hemoglobin currently >7.5 #. Thrombocytopenia. --> Hepatitis C ab ++, PCR - --> Monitor platelet level. Transfuse if platelet count <20k --> Levels remain low. # Hepatosplenomegaly. Ascites. There is also evidence of generalized anasarca, with pleural fluid and generalized subcutaneous edema --> Abd pain improved on pain management --> Refer to surgery note. #. Anemia of kidney disease --> HD as needed per nephrology team --> Monitor closely. --> Does not require iron at this time #. Generalized body ache related to fluid overload. #. End-stage renal disease, on hemodialysis as needed --> On hemodialysis #. Respiratory failure due to CHF and pneumonia. --> Providencia and pseudomonas. --> On vancomycin and ethambutol per ID. --> Chest pain improved at this time, on pain management. #. Shortness of breath. Due to underlying pneumonia. #. Atrial flutter with rapid ventricular response. On metoprolol and diltiazem. #. Conjunctivitis. Begin tobramycin. On anti TB treatment. On Amikacin and ethambutol. Continue telemetry. Subjective Date patient seen: Jul 21, 2017 Constitutional: Denies: no symptoms, chills, diaphoresis, fever, malaise, weakness, other HEENT: Denies: no symptoms, eye pain, blurred vision, tearing, double vision, ear pain, ear discharge, nose pain, nose congestion, throat pain, throat swelling, mouth pain, mouth swelling, other Cardiovascular: Denies: no symptoms, chest pain, edema, irregular heart rate, lightheadedness, palpitations, syncope, other Respiratory: Denies: no symptoms, cough, orthopnea, shortness of breath, SOB with excertion, SOB at rest, sputum, stridor, wheezing, other Gastrointestinal/Abdominal: Denies: no symptoms, abdomen distended, abdominal pain, black stools, tarry stools, blood in stool, constipated, diarrhea, difficulty swallowing, nausea, poor appetite, poor fluid intake, rectal bleeding , vomiting, other Genitourinary: Denies: no symptoms, burning, discharge, frequency, flank pain, hematuria, incontinence, pain, urgency, other Neurologic/Psychiatric: Denies: no symptoms, anxiety, depressed, emotional problems, headache, numbness, paresthesia, pre-existing deficit, seizure, tingling, tremors, weakness, other Hematologic/Lymphatic: Reports: anemia Allergies: Coded Allergies: IODINE AND IODIDE CONTAINING PRODUC (Verified Allergy, Mild, itching and pruritis, 06/25/17) Uncoded Allergies: CONTRAST/DYE (Allergy, Intermediate, PRURITIS AND ITCHING, 06/25/17) Subjective No fever or chills. Resting in bed. Objective Last 24 Hour Vital Signs Date Time Temp Pulse Resp B/P (MAP) Pulse Ox O2 Delivery O2 Flow Rate FiO2 07/21/17 20:23 76 130/77 07/21/17 20:23 130/77 07/21/17 20:00 Room Air 07/21/17 19:54 97.6 76 16 130/77 Room Air 97.6 07/21/17 18:00 72 158/71 07/21/17 16:30 Room Air 07/21/17 16:30 97.0 63 16 133/77 Room Air 97.0 07/21/17 16:00 97.2 72 20 158/71 96 Nasal Cannula 2.0 97.2 07/21/17 12:15 78 116/73 07/21/17 12:00 97.3 65 20 116/73 96 Nasal Cannula 2.0 97.3 07/21/17 09:04 61 153/89 07/21/17 09:04 153/89 07/21/17 08:07 Nasal Cannula 2.0 28 07/21/17 08:06 56 22 Nasal Cannula 2.0 28 07/21/17 08:05 92 Nasal Cannula 2.0 28 07/21/17 08:00 97.7 61 20 153/89 96 Nasal Cannula 2.0 97.7 07/21/17 05:36 62 119/73 07/21/17 04:00 98.2 62 20 119/73 96 Nasal Cannula 2.0 98.2 07/21/17 00:00 98.9 66 20 125/81 97 Nasal Cannula 2.0 98.9 07/20/17 23:56 66 125/81 Intake and Output 07/20/17 07/21/17 19:00 07:00 Intake Total 2540 ml 240 ml Output Total 100 ml Balance 2540 ml 140 ml Intake Oral 240 ml 240 ml Other 2300 ml Emesis 100 ml # Voids 3 1 Laboratory Tests 07/21/17 06:00: White Blood Count 4.6L, Red Blood Count 2.92L, Hemoglobin 9.6L, Hematocrit 29.8L , Mean Corpuscular Volume 102H, Mean Corpuscular Hemoglobin 32.8H, Mean Corpuscular Hemoglobin Concent 32.1, Red Cell Distribution Width 14.2, Platelet Count 93L, Mean Platelet Volume 7.7, Neutrophils (%) (Auto) , Lymphocytes (%) ( Auto) , Monocytes (%) (Auto) , Eosinophils (%) (Auto) , Basophils (%) (Auto) , Differential Total Cells Counted 100, Neutrophils % (Manual) 50, Lymphocytes % ( Manual) 21, Monocytes % (Manual) 17H, Eosinophils % (Manual) 11H, Basophils % ( Manual) 0, Band Neutrophils 1, Platelet Estimate DecreasedL, Platelet Morphology Normal, Hypochromasia 2+, Anisocytosis 1+, Macrocytosis 1+, Sodium Level 135L, Potassium Level 5.4H, Chloride Level 97L, Carbon Dioxide Level 28, Anion Gap 10, Blood Urea Nitrogen 74H, Creatinine 14.2H, Estimat Glomerular Filtration Rate 4.4, Glucose Level 83, Calcium Level 9.2, Total Bilirubin 1.3H, Direct Bilirubin 0.7H, Aspartate Amino Transf (AST/SGOT) 31, Alanine Aminotransferase (ALT/SGPT) 20, Alkaline Phosphatase 175H, Pro-B-Type Natriuretic Peptide 32877T, Total Protein 7.3, Albumin 2.4L, Globulin 4.9, Albumin/Globulin Ratio 0.5L Height (Feet): 5 Height (Inches): 7.00 Weight (Pounds): 224 General Appearance: no apparent distress, confused Neck: normal alignment Cardiovascular: normal rate, regular rhythm Respiratory/Chest: decreased breath sounds Abdomen: soft ZAK RUIZ Jul 21, 2017 22:15
--- NOTE | 2017-07-21 23:09 | General Progress Note ---
Assessment/Plan Assessment/Plan Assessment - gallstones - abnormal LFT - suspect due to cirrhosis +/- meds - Periodic N/V with abnormal GB ultrasound, ? possibly biliary colic - patient declined HIDA - Anemia, multifactorial - OB (+) Stool - patient declined EGD/Colon - ESRD/HD - DM - HTN - COPD - Cavitary lung disease - Thrombocytopenia - cirrhotic appearing liver on CT - Hepatitis C Ab (+)/ PCR (-) - Poor prognosis Recommendations - PO as tolerated - follow symptoms and exam - monitor LFT - avoid hepatotoxic meds - abx per ID - transfuse PRN - Acid blockade Subjective Allergies: Coded Allergies: IODINE AND IODIDE CONTAINING PRODUC (Verified Allergy, Mild, itching and pruritis, 06/25/17) Uncoded Allergies: CONTRAST/DYE (Allergy, Intermediate, PRURITIS AND ITCHING, 06/25/17) Subjective above noted tolerating PO no vomiting no abd pain Objective Last 24 Hour Vital Signs Date Time Temp Pulse Resp B/P (MAP) Pulse Ox O2 Delivery O2 Flow Rate FiO2 07/21/17 20:23 76 130/77 07/21/17 20:23 130/77 07/21/17 20:00 Room Air 07/21/17 19:54 97.6 76 16 130/77 Room Air 97.6 07/21/17 18:00 72 158/71 07/21/17 16:30 Room Air 07/21/17 16:30 97.0 63 16 133/77 Room Air 97.0 07/21/17 16:00 97.2 72 20 158/71 96 Nasal Cannula 2.0 97.2 07/21/17 12:15 78 116/73 07/21/17 12:00 97.3 65 20 116/73 96 Nasal Cannula 2.0 97.3 07/21/17 09:04 61 153/89 07/21/17 09:04 153/89 07/21/17 08:07 Nasal Cannula 2.0 28 07/21/17 08:06 56 22 Nasal Cannula 2.0 28 07/21/17 08:05 92 Nasal Cannula 2.0 28 07/21/17 08:00 97.7 61 20 153/89 96 Nasal Cannula 2.0 97.7 07/21/17 05:36 62 119/73 07/21/17 04:00 98.2 62 20 119/73 96 Nasal Cannula 2.0 98.2 07/21/17 00:00 98.9 66 20 125/81 97 Nasal Cannula 2.0 98.9 07/20/17 23:56 66 125/81 Intake and Output 07/20/17 07/21/17 19:00 07:00 Intake Total 2540 ml 240 ml Output Total 100 ml Balance 2540 ml 140 ml Intake Oral 240 ml 240 ml Other 2300 ml Emesis 100 ml # Voids 3 1 Laboratory Tests 07/21/17 06:00: White Blood Count 4.6L, Red Blood Count 2.92L, Hemoglobin 9.6L, Hematocrit 29.8L , Mean Corpuscular Volume 102H, Mean Corpuscular Hemoglobin 32.8H, Mean Corpuscular Hemoglobin Concent 32.1, Red Cell Distribution Width 14.2, Platelet Count 93L, Mean Platelet Volume 7.7, Neutrophils (%) (Auto) , Lymphocytes (%) ( Auto) , Monocytes (%) (Auto) , Eosinophils (%) (Auto) , Basophils (%) (Auto) , Differential Total Cells Counted 100, Neutrophils % (Manual) 50, Lymphocytes % ( Manual) 21, Monocytes % (Manual) 17H, Eosinophils % (Manual) 11H, Basophils % ( Manual) 0, Band Neutrophils 1, Platelet Estimate DecreasedL, Platelet Morphology Normal, Hypochromasia 2+, Anisocytosis 1+, Macrocytosis 1+, Sodium Level 135L, Potassium Level 5.4H, Chloride Level 97L, Carbon Dioxide Level 28, Anion Gap 10, Blood Urea Nitrogen 74H, Creatinine 14.2H, Estimat Glomerular Filtration Rate 4.4, Glucose Level 83, Calcium Level 9.2, Total Bilirubin 1.3H, Direct Bilirubin 0.7H, Aspartate Amino Transf (AST/SGOT) 31, Alanine Aminotransferase (ALT/SGPT) 20, Alkaline Phosphatase 175H, Pro-B-Type Natriuretic Peptide 63830X, Total Protein 7.3, Albumin 2.4L, Globulin 4.9, Albumin/Globulin Ratio 0.5L Height (Feet): 5 Height (Inches): 7.00 Weight (Pounds): 224 Objective WDWN AA Man NCAT supple CTA RRR Soft mildly distended, (+) trunk edema (++) leg edema PERCY JOYNER Jul 21, 2017 23:09
[2017-07-21] MEDS: dilTIAZem HCl 60mg tab ORAL SCH (23:59)
[2017-07-22 04:00] VITALS: BP 115/78
[2017-07-22] MEDS: Clindamycin 150mg cap ORAL SCH ×5 (05:23→23:29)
[2017-07-22] MEDS: dilTIAZem HCl 60mg tab ORAL SCH ×3 (05:24→21:09)
[2017-07-22 08:00] VITALS: BP 111/56
[2017-07-22 08:27] LABS: HEMOGLOBIN 9.7 G/DL (14.2-18.0); MEAN CORPUSCULAR VOLUME 102 FL (80-99); PLATELET COUNT 93 K/UL (150-450); RED BLOOD COUNT 3.04 M/UL (4.70-6.10); WHITE BLOOD COUNT 4.5 K/UL (4.8-10.8)
[2017-07-22 08:28] LABS: ANION GAP 9 mmol/L (5-15); BLOOD UREA NITROGEN 53 mg/dL (7-18); CALCIUM 9.2 MG/DL (8.5-10.1); CARBON DIOXIDE 31 MMOL/L (21-32); CHLORIDE 99 MMOL/L (98-107); CREATININE 11.2 MG/DL (0.55-1.30); SODIUM 139 MMOL/L (136-145)
[2017-07-22] MEDS: Eliquis 2.5mg tablet ORAL SCH ×2 (08:58→21:08)
[2017-07-22] MEDS: Lisinopril 20mg tab ORAL SCH ×2 (08:58→21:00)
[2017-07-22 09:20] VITALS: BP 111/78
[2017-07-22 12:00] VITALS: BP 113/68
--- NOTE | 2017-07-22 13:02 | Infectious Diseases Prog Note ---
Assessment/Plan Assessment/Plan Cavitary PNA. SCx: Neg ( m/l necrotizing Pneum, vs anaerobic abscess, doubt TB or fungal ) ; improving - 07/09 SP BAL Cx( Abby and MOJGAN : Colonizers ) , Path : Neg for fungus and Malignancy - -CT 07/15 : he overall lesion appears smaller, measuring 6.3 cm AP by 3.6 cm transverse by 2.3 cm craniocaudad currently -CT chest 06/25: Since the prior study of 06/15/2017, and. From further reduction in size of previously demonstrated thick walled right upper lobe cavitary mass. This was previously thought to most likely represent a cavitary inflammatory mass, and the interim reduction in size certainly supports that. Much less likely a cavitary neoplasm, but follow-up to resolution is recommended. Markedly improved parenchymal disease bilaterally, since the previous study. Nonetheless , extensive atelectasis and groundglass consolidation persists. Persistent small right pleural effusion, smaller than on the prior study. Resolved left pleural effusion 6 mm nodular opacity in the right upper lobe, not evident previously but likely obscured by surrounding consolidated lung parenchyma. This should be followed up in 6 months to one year depending on results of interim follow-up exams T-SPOT :Neg AFB x 3 : Neg MTB PCR x2 : neg cryptococcus Ag, Histoplams mycelial Ab , Blastomyces ab : neg ; histoplasma yeast ab (not able to be done due to anticomplementary activity) -Cocci, Asp ag p -Fungitell + 144 (?aspergillosis vs m/l false positive) CT chest 06/15: Slightly smaller (6 cm diameter ) but mostly unchanged cavitary lesion in the right lung, previously thought to represent a cavitating inflammatory process. Lung abscess is certainly a possibility. Fairly extensive bilateral pulmonary parenchymal consolidation, slightly increased from previous exam of 06/05/2017. Likely a combination of pulmonary edema and pneumonia. Small right and trace left pleural effusion, new/increased from the previous study. CT 06/05: 7.8 x 5.3 x 6.6 cm dense opacity in the posterior inferior right upper lobe with a central cavitation. CRP 14 Influenza negative Coccidioidal ,Galactomannan : NEG ( PER LAB ) Transaminitis , improving after stopping rifampin /2 Hep C cirrhosis- no active Hep C as VL not detected -CT abd/p: Evidence of hepatic cirrhosis. Hepatosplenomegaly. evidence of generalized anasarca, with pleural fluid and generalized subcutaneous edema. Cholelithiasis, also previously reported. Possible diverticulosis. No evidence of diverticulitis US Abd : Cholelithiasis. There is gallbladder wall thickening, likely related to hemodynamic abnormalities Splenomegaly. Evidence of hepatic cirrhosis HIV : NEG Hep Panel B neg , C Ab : +ve , VL not detected leukopenia and TCP 2/2 splenomegaly Seizure disorder History of CVA History of pacemaker placement Hyperlipidemia Hypertension COPD/asthma End-stage renal disease, on hemodialysis Diabetes Anxiety Anemia Echo, ejection fraction 45% to 50%. PLAN: - Cont oral Clinda d# 7 ( till resolution of of abscess) ( abx d# 46 ) Continue empiric Ethambutol and Levaquin, Amikacin ( empiric TB AB Rx d# 36 as per TB control request, this was DW TB control , still insists to cont w TB regiment till final cultures are back ) 07/16 SP DC Zoysn d# 9 ( for SOB and CXR worsen , better coverage of anaerobes, PSA and Providencia ); 07/07 SP Dc Flagyl 07/06 SP Voriconazole ( low antonio for fungal infection , and in the setting of cirrhosis ) 07/05 SP Micafungin abx d#20 , Rifampin 600mg qd #10 07/01 SP Ceftriaxone #10 06/28 SP Amikacin #15 06/25 SP PO Voriconazole #3 06/20 SP Liposomal Ampho #8 06/17 SP IV Vancomycin #14, Meropenem #5 06/13 SP Zosyn d# 10 06/08 SP Zithromax D# 6 f/u sputum culture (fungal, and AFB x3). BAL fungal and AFB Cx : P - CMP called TB control they want to cont TB Meds regardless of Neg results ( 07/22 ) Subjective Allergies: Coded Allergies: IODINE AND IODIDE CONTAINING PRODUC (Verified Allergy, Mild, itching and pruritis, 06/25/17) Uncoded Allergies: CONTRAST/DYE (Allergy, Intermediate, PRURITIS AND ITCHING, 06/25/17) Subjective comfortable Objective Vital Signs Last 24 Hour Vital Signs Date Time Temp Pulse Resp B/P (MAP) Pulse Ox O2 Delivery O2 Flow Rate FiO2 07/22/17 11:34 70 121/78 07/22/17 09:20 97.9 72 20 111/78 90 Room Air 97.9 07/22/17 08:59 75 111/56 07/22/17 08:58 111/56 07/22/17 08:00 97.5 75 20 111/56 87 97.5 07/22/17 05:24 72 115/78 07/22/17 04:24 98.1 07/22/17 04:00 97.9 72 20 115/78 90 Room Air 97.9 07/21/17 23:59 80 106/63 07/21/17 23:54 98.1 80 20 106/63 91 Room Air 98.1 07/21/17 20:23 76 130/77 07/21/17 20:23 130/77 07/21/17 20:00 Room Air 07/21/17 19:54 97.6 76 16 130/77 Room Air 97.6 07/21/17 18:00 72 158/71 07/21/17 16:30 Room Air 07/21/17 16:30 97.0 63 16 133/77 Room Air 97.0 07/21/17 16:00 97.2 72 20 158/71 96 Nasal Cannula 2.0 97.2 Height (Feet): 5 Height (Inches): 7.00 Weight (Pounds): 217 HEENT: atraumatic Respiratory/Chest: normal breath sounds Cardiovascular: normal rate Abdomen: non distended Laboratory Tests Test 07/22/17 07:55 White Blood Count 4.5 K/UL (4.8-10.8) L Red Blood Count 3.04 M/UL (4.70-6.10) L Hemoglobin 9.7 G/DL (14.2-18.0) L Hematocrit 31.0 % (42.0-52.0) L Mean Corpuscular Volume 102 FL (80-99) H Mean Corpuscular Hemoglobin 31.9 PG (27.0-31.0) H Mean Corpuscular Hemoglobin Concent 31.3 G/DL (32.0-36.0) L Red Cell Distribution Width 14.0 % (11.6-14.8) Platelet Count 93 K/UL (150-450) L Mean Platelet Volume 6.6 FL (6.5-10.1) Neutrophils (%) (Auto) % (45.0-75.0) Lymphocytes (%) (Auto) % (20.0-45.0) Monocytes (%) (Auto) % (1.0-10.0) Eosinophils (%) (Auto) % (0.0-3.0) Basophils (%) (Auto) % (0.0-2.0) Differential Total Cells Counted 100 Neutrophils % (Manual) 56 % (45-75) Lymphocytes % (Manual) 25 % (20-45) Monocytes % (Manual) 11 % (1-10) H Eosinophils % (Manual) 6 % (0-3) H Basophils % (Manual) 1 % (0-2) Band Neutrophils 1 % (0-8) Platelet Estimate Decreased L Platelet Morphology Normal Hypochromasia 1+ Macrocytosis 1+ Stomatocytes Occasional Sodium Level 139 MMOL/L (136-145) Potassium Level 5.0 MMOL/L (3.5-5.1) Chloride Level 99 MMOL/L (98-107) Carbon Dioxide Level 31 MMOL/L (21-32) Anion Gap 9 mmol/L (5-15) Blood Urea Nitrogen 53 mg/dL (7-18) H Creatinine 11.2 MG/DL (0.55-1.30) H Estimat Glomerular Filtration Rate 5.7 mL/min (>60) Glucose Level 82 MG/DL (74-106) Calcium Level 9.2 MG/DL (8.5-10.1) Current Medications Medications (Trade) Dose Ordered Sig/Jose Route PRN Reason Start Time Stop Time Status Last Admin Dose Admin Alprazolam (Xanax) 2 mg DAILYPRN PRN ORAL For Anxiety 07/16/17 15:15 07/23/17 15:14 07/21/17 09:05 Amikacin Protocol (Amikacin pharmacy to dose) 1 ea DAILY PRN MISC Per rx protocol 07/16/17 09:00 08/03/17 15:14 Amikacin Sulfate 800 mg/Dextrose 113.2 ml @ 226.4 mls/ hr MON-WED-FRI IV 07/18/17 21:00 07/25/17 20:59 07/21/17 20:22 Apixaban (Eliquis) 2.5 mg Q12HR ORAL 07/16/17 09:00 08/15/17 08:59 07/22/17 08:58 Carisoprodol (Soma) 350 mg Q6H PRN ORAL Muscle Spasm 07/18/17 15:30 08/17/17 15:29 07/22/17 01:01 Chlorhexidine Gluconate (Mireille-Hex 2%) 1 applic DAILY@2000 TOPIC 07/15/17 20:00 08/02/17 19:59 07/21/17 20:21 Clindamycin HCl (Cleocin) 450 mg EVERY 6 HOURS ORAL 07/16/17 18:00 07/23/17 17:59 07/22/17 11:34 Dextrose (Dextrose 50%) 25 ml STAT PRN IV HYPOGLYCEMIA 07/16/17 08:30 08/08/17 08:29 Diltiazem HCl (Cardizem) 60 mg EVERY 6 HOURS ORAL 07/22/17 00:00 08/21/17 00:00 07/22/17 11:34 Hydromorphone HCl (Dilaudid) 2 mg Q4H PRN IVP Severe Pain (Pain Scale 7-10) 07/16/17 21:15 07/23/17 21:14 07/22/17 09:00 Lisinopril (Prinivil) 20 mg Q12HR ORAL 07/16/17 09:00 08/15/17 08:59 07/22/17 08:58 Metoprolol Tartrate (Lopressor) 100 mg Q12HR ORAL 07/15/17 21:00 08/10/17 20:59 07/22/17 08:59 Ondansetron HCl (Zofran) 4 mg Q6H PRN IVP Nausea & Vomiting 07/18/17 15:30 08/17/17 15:29 07/22/17 02:25 Promethazine HCl/ Codeine (Phenergan with Codeine) 5 ml Q4H PRN ORAL For Cough 07/15/17 19:32 07/22/17 19:31 Cristofer Antunez MD Jul 22, 2017 13:02
--- NOTE | 2017-07-22 14:31 | Nephrology Progress Note ---
Assessment/Plan Problem List: (1) ESRD (end stage renal disease) on dialysis (2) Shortness of breath (3) Anemia Assessment Anemia ESRD , missed HD on admission , admitted with high K and pulmonary edema Acute respiratory distress due to volume overload elevated troponin r/o ACS h/o COPD ? exacerbation HTN urgency Cardiomyopathy L AICD anemia of chronic kidney disease Hx of CVA Plan Plan: HD next 07/23- will care for high K with HD Kayexelate for now Max UF Transfused Phos binders BP meds adjustment Optimize cardiac status per orders Subjective ROS Limited/Unobtainable: No Constitutional: Reports: malaise Objective Objective Last 24 Hour Vital Signs Date Time Temp Pulse Resp B/P (MAP) Pulse Ox O2 Delivery O2 Flow Rate FiO2 07/22/17 12:00 98.2 76 20 113/68 90 Room Air 98.2 07/22/17 11:34 70 121/78 07/22/17 09:20 97.9 72 20 111/78 90 Room Air 97.9 07/22/17 08:59 75 111/56 07/22/17 08:58 111/56 07/22/17 08:00 97.5 75 20 111/56 87 97.5 07/22/17 05:24 72 115/78 07/22/17 04:24 98.1 07/22/17 04:00 97.9 72 20 115/78 90 Room Air 97.9 07/21/17 23:59 80 106/63 07/21/17 23:54 98.1 80 20 106/63 91 Room Air 98.1 07/21/17 20:23 76 130/77 07/21/17 20:23 130/77 07/21/17 20:00 Room Air 07/21/17 19:54 97.6 76 16 130/77 Room Air 97.6 07/21/17 18:00 72 158/71 07/21/17 16:30 Room Air 07/21/17 16:30 97.0 63 16 133/77 Room Air 97.0 07/21/17 16:00 97.2 72 20 158/71 96 Nasal Cannula 2.0 97.2 Intake and Output 07/21/17 07/22/17 19:00 07:00 Intake Total 240 ml 113.2 ml Output Total 4000 ml Balance 240 ml -3886.8 ml Intake Oral 240 ml IV Total 113.2 ml Hemodialysis UF 4000 ml # Voids 3 Laboratory Tests 07/22/17 07:55: White Blood Count 4.5L, Red Blood Count 3.04L, Hemoglobin 9.7L, Hematocrit 31.0L , Mean Corpuscular Volume 102H, Mean Corpuscular Hemoglobin 31.9H, Mean Corpuscular Hemoglobin Concent 31.3L, Red Cell Distribution Width 14.0, Platelet Count 93L, Mean Platelet Volume 6.6, Neutrophils (%) (Auto) , Lymphocytes (%) (Auto) , Monocytes (%) (Auto) , Eosinophils (%) (Auto) , Basophils (%) (Auto) , Differential Total Cells Counted 100, Neutrophils % ( Manual) 56, Lymphocytes % (Manual) 25, Monocytes % (Manual) 11H, Eosinophils % ( Manual) 6H, Basophils % (Manual) 1, Band Neutrophils 1, Platelet Estimate DecreasedL, Platelet Morphology Normal, Hypochromasia 1+, Macrocytosis 1+, Stomatocytes Occasional, Sodium Level 139, Potassium Level 5.0, Chloride Level 99, Carbon Dioxide Level 31, Anion Gap 9, Blood Urea Nitrogen 53H, Creatinine 11.2H, Estimat Glomerular Filtration Rate 5.7, Glucose Level 82, Calcium Level 9.2 Height (Feet): 5 Height (Inches): 7.00 Weight (Pounds): 217 General Appearance: no apparent distress Objective no change LIAM MONTELONGO Jul 22, 2017 14:31
--- NOTE | 2017-07-22 15:08 | Cardiology Progress Note ---
Assessment/Plan Assessment/Plan pleuritic chest pain neg recent sig perfusion abn; systolic dysfunction on mild degree involving the septum cavitating lung lesion improved on recent ct esrd htn anemia icd hx biotonix , interrogated 07/09/19 edema afib / atrial tachy thrombocytopenia iodine allergy remains in sinus plt low is on eliquis for stroke prevention venous duplex neg echo reviewed swma in septum (possible) as tech difficult study ef 45% afb smear neg ct noted icd interrogated no shock fucntion fine cxr much improved on higher volume of UF with dialysis still needs more fluid removed cardizem increased yest skip cardizem on am priro to dialysis Subjective Cardiovascular: Denies: chest pain, lightheadedness, palpitations Respiratory: Reports: cough; Denies: shortness of breath Gastrointestinal/Abdominal: Denies: abdominal pain Objective Last 24 Hour Vital Signs Date Time Temp Pulse Resp B/P (MAP) Pulse Ox O2 Delivery O2 Flow Rate FiO2 07/22/17 12:00 98.2 76 20 113/68 90 Room Air 98.2 07/22/17 11:34 70 121/78 07/22/17 09:20 97.9 72 20 111/78 90 Room Air 97.9 07/22/17 08:59 75 111/56 07/22/17 08:58 111/56 07/22/17 08:00 97.5 75 20 111/56 87 97.5 07/22/17 05:24 72 115/78 07/22/17 04:24 98.1 07/22/17 04:00 97.9 72 20 115/78 90 Room Air 97.9 07/21/17 23:59 80 106/63 07/21/17 23:54 98.1 80 20 106/63 91 Room Air 98.1 07/21/17 20:23 76 130/77 07/21/17 20:23 130/77 07/21/17 20:00 Room Air 07/21/17 19:54 97.6 76 16 130/77 Room Air 97.6 07/21/17 18:00 72 158/71 07/21/17 16:30 Room Air 07/21/17 16:30 97.0 63 16 133/77 Room Air 97.0 07/21/17 16:00 97.2 72 20 158/71 96 Nasal Cannula 2.0 97.2 General Appearance: alert Cardiovascular: regular rhythm Respiratory/Chest: lungs clear Abdomen: normal bowel sounds, non tender, soft Extremities: moderate edema Intake and Output 07/21/17 07/22/17 19:00 07:00 Intake Total 240 ml 113.2 ml Output Total 4000 ml Balance 240 ml -3886.8 ml Intake Oral 240 ml IV Total 113.2 ml Hemodialysis UF 4000 ml # Voids 3 Laboratory Tests Test 07/22/17 07:55 White Blood Count 4.5 K/UL (4.8-10.8) L Red Blood Count 3.04 M/UL (4.70-6.10) L Hemoglobin 9.7 G/DL (14.2-18.0) L Hematocrit 31.0 % (42.0-52.0) L Mean Corpuscular Volume 102 FL (80-99) H Mean Corpuscular Hemoglobin 31.9 PG (27.0-31.0) H Mean Corpuscular Hemoglobin Concent 31.3 G/DL (32.0-36.0) L Red Cell Distribution Width 14.0 % (11.6-14.8) Platelet Count 93 K/UL (150-450) L Mean Platelet Volume 6.6 FL (6.5-10.1) Neutrophils (%) (Auto) % (45.0-75.0) Lymphocytes (%) (Auto) % (20.0-45.0) Monocytes (%) (Auto) % (1.0-10.0) Eosinophils (%) (Auto) % (0.0-3.0) Basophils (%) (Auto) % (0.0-2.0) Differential Total Cells Counted 100 Neutrophils % (Manual) 56 % (45-75) Lymphocytes % (Manual) 25 % (20-45) Monocytes % (Manual) 11 % (1-10) H Eosinophils % (Manual) 6 % (0-3) H Basophils % (Manual) 1 % (0-2) Band Neutrophils 1 % (0-8) Platelet Estimate Decreased L Platelet Morphology Normal Hypochromasia 1+ Macrocytosis 1+ Stomatocytes Occasional Sodium Level 139 MMOL/L (136-145) Potassium Level 5.0 MMOL/L (3.5-5.1) Chloride Level 99 MMOL/L (98-107) Carbon Dioxide Level 31 MMOL/L (21-32) Anion Gap 9 mmol/L (5-15) Blood Urea Nitrogen 53 mg/dL (7-18) H Creatinine 11.2 MG/DL (0.55-1.30) H Estimat Glomerular Filtration Rate 5.7 mL/min (>60) Glucose Level 82 MG/DL (74-106) Calcium Level 9.2 MG/DL (8.5-10.1) PRECIOUS GARCIA Jul 22, 2017 15:08
--- NOTE | 2017-07-22 15:11 | Pulmonology Progress Note ---
Assessment/Plan Problems: (1) Respiratory failure (2) Pneumonia (3) Rapid atrial fibrillation (4) HTN (hypertension) (5) ESRD (end stage renal disease) on dialysis (6) Anemia Assessment/Plan CXR 07/21: RUL cavitary lesion not changed continue telemetry, c/o generalized pain slowly improving onNC HD by bolt man prbc prn on anti TB meds wtih IV Amikacin, ethambutol continue current meds TB control insist on continuing TB meds Subjective ROS Limited/Unobtainable: No Constitutional: Reports: no symptoms HEENT: Repors: no symptoms Respiratory: Reports: no symptoms Allergies: Coded Allergies: IODINE AND IODIDE CONTAINING PRODUC (Verified Allergy, Mild, itching and pruritis, 06/25/17) Uncoded Allergies: CONTRAST/DYE (Allergy, Intermediate, PRURITIS AND ITCHING, 06/25/17) Objective Last 24 Hour Vital Signs Date Time Temp Pulse Resp B/P (MAP) Pulse Ox O2 Delivery O2 Flow Rate FiO2 07/22/17 12:00 98.2 76 20 113/68 90 Room Air 98.2 07/22/17 11:34 70 121/78 07/22/17 09:20 97.9 72 20 111/78 90 Room Air 97.9 07/22/17 08:59 75 111/56 07/22/17 08:58 111/56 07/22/17 08:00 97.5 75 20 111/56 87 97.5 07/22/17 05:24 72 115/78 07/22/17 04:24 98.1 07/22/17 04:00 97.9 72 20 115/78 90 Room Air 97.9 07/21/17 23:59 80 106/63 07/21/17 23:54 98.1 80 20 106/63 91 Room Air 98.1 07/21/17 20:23 76 130/77 07/21/17 20:23 130/77 07/21/17 20:00 Room Air 07/21/17 19:54 97.6 76 16 130/77 Room Air 97.6 07/21/17 18:00 72 158/71 07/21/17 16:30 Room Air 07/21/17 16:30 97.0 63 16 133/77 Room Air 97.0 07/21/17 16:00 97.2 72 20 158/71 96 Nasal Cannula 2.0 97.2 Intake and Output 07/21/17 07/22/17 19:00 07:00 Intake Total 240 ml 113.2 ml Output Total 4000 ml Balance 240 ml -3886.8 ml Intake Oral 240 ml IV Total 113.2 ml Hemodialysis UF 4000 ml # Voids 3 Objective General Appearance: WD/WN HEENT: normocephalic, atraumatic, anicteric Respiratory/Chest: loud rhonchi Cardiovascular: normal peripheral pulses, normal rate, regular rhythm Abdomen: normal bowel sounds, soft, non tender, no organomegaly Genitourinary: normal external genitalia Extremities: no cyanosis Skin: no rash, no lesions 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, no motor/sensory deficits Lymphatic: no neck adenopathy, no groin adenopathy Laboratory Tests 07/22/17 07:55: White Blood Count 4.5L, Red Blood Count 3.04L, Hemoglobin 9.7L, Hematocrit 31.0L , Mean Corpuscular Volume 102H, Mean Corpuscular Hemoglobin 31.9H, Mean Corpuscular Hemoglobin Concent 31.3L, Red Cell Distribution Width 14.0, Platelet Count 93L, Mean Platelet Volume 6.6, Neutrophils (%) (Auto) , Lymphocytes (%) (Auto) , Monocytes (%) (Auto) , Eosinophils (%) (Auto) , Basophils (%) (Auto) , Differential Total Cells Counted 100, Neutrophils % ( Manual) 56, Lymphocytes % (Manual) 25, Monocytes % (Manual) 11H, Eosinophils % ( Manual) 6H, Basophils % (Manual) 1, Band Neutrophils 1, Platelet Estimate DecreasedL, Platelet Morphology Normal, Hypochromasia 1+, Macrocytosis 1+, Stomatocytes Occasional, Sodium Level 139, Potassium Level 5.0, Chloride Level 99, Carbon Dioxide Level 31, Anion Gap 9, Blood Urea Nitrogen 53H, Creatinine 11.2H, Estimat Glomerular Filtration Rate 5.7, Glucose Level 82, Calcium Level 9.2 Current Medications Medications (Trade) Dose Ordered Sig/Jose Route PRN Reason Start Time Stop Time Status Last Admin Dose Admin Alprazolam (Xanax) 2 mg DAILYPRN PRN ORAL For Anxiety 07/16/17 15:15 07/23/17 15:14 07/21/17 09:05 Amikacin Protocol (Amikacin pharmacy to dose) 1 ea DAILY PRN MISC Per rx protocol 07/16/17 09:00 08/03/17 15:14 Amikacin Sulfate 800 mg/Dextrose 113.2 ml @ 226.4 mls/ hr MON-FRI-FRI IV 07/18/17 21:00 07/25/17 20:59 07/21/17 20:22 Apixaban (Eliquis) 2.5 mg Q12HR ORAL 07/16/17 09:00 08/15/17 08:59 07/22/17 08:58 Carisoprodol (Soma) 350 mg Q6H PRN ORAL Muscle Spasm 07/18/17 15:30 08/17/17 15:29 07/22/17 01:01 Chlorhexidine Gluconate (Mireille-Hex 2%) 1 applic DAILY@1999 TOPIC 07/15/17 20:00 08/02/17 19:59 07/21/17 20:21 Clindamycin HCl (Cleocin) 450 mg EVERY 6 HOURS ORAL 07/16/17 18:00 07/23/17 17:59 07/22/17 11:34 Dextrose (Dextrose 50%) 25 ml STAT PRN IV HYPOGLYCEMIA 07/16/17 08:30 08/08/17 08:29 Diltiazem HCl (Cardizem) 60 mg EVERY 6 HOURS ORAL 07/22/17 00:00 08/21/17 00:00 07/22/17 11:34 Ethambutol HCl (Myambutol) 1,000 mg 3XW@2100 ORAL 07/23/17 21:00 08/22/17 20:59 Hydromorphone HCl (Dilaudid) 2 mg Q4H PRN IVP Severe Pain (Pain Scale 7-10) 07/16/17 21:15 07/23/17 21:14 07/22/17 13:10 Levofloxacin (Levaquin) 750 mg EVERY OTHER DAY@1999 ORAL 07/23/17 20:00 07/30/17 19:59 Lisinopril (Prinivil) 20 mg Q12HR ORAL 07/16/17 09:00 08/15/17 08:59 07/22/17 08:58 Metoprolol Tartrate (Lopressor) 100 mg Q12HR ORAL 07/15/17 21:00 08/10/17 20:59 07/22/17 08:59 Ondansetron HCl (Zofran) 4 mg Q6H PRN IVP Nausea & Vomiting 07/18/17 15:30 08/17/17 15:29 07/22/17 02:25 Promethazine HCl/ Codeine (Phenergan with Codeine) 5 ml Q4H PRN ORAL For Cough 07/15/17 19:32 07/22/17 19:31 Christine Morgan MD Jul 22, 2017 15:11
[2017-07-22 16:00] VITALS: BP 133/85
--- NOTE | 2017-07-22 17:10 | Internal Med Progress Note ---
Subjective Date of Service: Jul 22, 2017 Physician Name Pires,Zoey Attending Physician Chaitanya Weinstein MD Current Medications Medications (Trade) Dose Ordered Sig/Jose Route PRN Reason Start Time Stop Time Status Last Admin Dose Admin Alprazolam (Xanax) 2 mg DAILYPRN PRN ORAL For Anxiety 07/16/17 15:15 07/23/17 15:14 07/21/17 09:05 Amikacin Protocol (Amikacin pharmacy to dose) 1 ea DAILY PRN MISC Per rx protocol 07/16/17 09:00 08/03/17 15:14 Amikacin Sulfate 800 mg/Dextrose 113.2 ml @ 226.4 mls/ hr FRI-FRI-FRI IV 07/18/17 21:00 07/25/17 20:59 07/21/17 20:22 Apixaban (Eliquis) 2.5 mg Q12HR ORAL 07/16/17 09:00 08/15/17 08:59 07/22/17 08:58 Carisoprodol (Soma) 350 mg Q6H PRN ORAL Muscle Spasm 07/18/17 15:30 08/17/17 15:29 07/22/17 01:01 Chlorhexidine Gluconate (Mireille-Hex 2%) 1 applic DAILY@1999 TOPIC 07/15/17 20:00 08/02/17 19:59 07/21/17 20:21 Clindamycin HCl (Cleocin) 450 mg EVERY 6 HOURS ORAL 07/16/17 18:00 07/23/17 17:59 07/22/17 17:05 Dextrose (Dextrose 50%) 25 ml STAT PRN IV HYPOGLYCEMIA 07/16/17 08:30 08/08/17 08:29 Diltiazem HCl (Cardizem) 60 mg Q8HR ORAL 07/22/17 22:00 08/21/17 21:59 Ethambutol HCl (Myambutol) 1,000 mg 3XW@2099 ORAL 07/23/17 21:00 08/22/17 20:59 Hydromorphone HCl (Dilaudid) 2 mg Q4H PRN IVP Severe Pain (Pain Scale 7-10) 07/16/17 21:15 07/23/17 21:14 07/22/17 17:06 Levofloxacin (Levaquin) 750 mg EVERY OTHER DAY@1999 ORAL 07/23/17 20:00 07/30/17 19:59 Lisinopril (Prinivil) 20 mg Q12HR ORAL 07/16/17 09:00 08/15/17 08:59 07/22/17 08:58 Metoprolol Tartrate (Lopressor) 100 mg Q12HR ORAL 07/15/17 21:00 08/10/17 20:59 07/22/17 08:59 Ondansetron HCl (Zofran) 4 mg Q6H PRN IVP Nausea & Vomiting 07/18/17 15:30 08/17/17 15:29 07/22/17 02:25 Promethazine HCl/ Codeine (Phenergan with Codeine) 5 ml Q4H PRN ORAL For Cough 07/15/17 19:32 07/22/17 19:31 Allergies: Coded Allergies: IODINE AND IODIDE CONTAINING PRODUC (Verified Allergy, Mild, itching and pruritis, 06/25/17) Uncoded Allergies: CONTRAST/DYE (Allergy, Intermediate, PRURITIS AND ITCHING, 06/25/17) Subjective 57 YO M admitted with chest pain and shortness of breath. Now pneumonia and candelaria heart failure. Back on nasal canula. Cover for Int Misbah-Dr Weinstein. Now atrial flutter Objective Last Vital Signs Date Time Temp Pulse Resp B/P (MAP) Pulse Ox O2 Delivery O2 Flow Rate FiO2 07/22/17 12:00 98.2 76 20 113/68 90 Room Air 98.2 07/21/17 16:00 2.0 07/21/17 08:07 28 Laboratory Tests Test 07/22/17 07:55 White Blood Count 4.5 K/UL (4.8-10.8) L Red Blood Count 3.04 M/UL (4.70-6.10) L Hemoglobin 9.7 G/DL (14.2-18.0) L Hematocrit 31.0 % (42.0-52.0) L Mean Corpuscular Volume 102 FL (80-99) H Mean Corpuscular Hemoglobin 31.9 PG (27.0-31.0) H Mean Corpuscular Hemoglobin Concent 31.3 G/DL (32.0-36.0) L Red Cell Distribution Width 14.0 % (11.6-14.8) Platelet Count 93 K/UL (150-450) L Mean Platelet Volume 6.6 FL (6.5-10.1) Neutrophils (%) (Auto) % (45.0-75.0) Lymphocytes (%) (Auto) % (20.0-45.0) Monocytes (%) (Auto) % (1.0-10.0) Eosinophils (%) (Auto) % (0.0-3.0) Basophils (%) (Auto) % (0.0-2.0) Differential Total Cells Counted 100 Neutrophils % (Manual) 56 % (45-75) Lymphocytes % (Manual) 25 % (20-45) Monocytes % (Manual) 11 % (1-10) H Eosinophils % (Manual) 6 % (0-3) H Basophils % (Manual) 1 % (0-2) Band Neutrophils 1 % (0-8) Platelet Estimate Decreased L Platelet Morphology Normal Hypochromasia 1+ Macrocytosis 1+ Stomatocytes Occasional Sodium Level 139 MMOL/L (136-145) Potassium Level 5.0 MMOL/L (3.5-5.1) Chloride Level 99 MMOL/L (98-107) Carbon Dioxide Level 31 MMOL/L (21-32) Anion Gap 9 mmol/L (5-15) Blood Urea Nitrogen 53 mg/dL (7-18) H Creatinine 11.2 MG/DL (0.55-1.30) H Estimat Glomerular Filtration Rate 5.7 mL/min (>60) Glucose Level 82 MG/DL (74-106) Calcium Level 9.2 MG/DL (8.5-10.1) Intake and Output 07/21/17 07/22/17 19:00 07:00 Intake Total 240 ml 113.2 ml Output Total 4000 ml Balance 240 ml -3886.8 ml Intake Oral 240 ml IV Total 113.2 ml Hemodialysis UF 4000 ml # Voids 3 Objective General Appearance: WD/WN, alert, moderate distress EENT: PERRL/EOMI, normal ENT inspection Neck: non-tender, normal alignment, supple, normal inspection Cardiovascular: Tachycardia; normal peripheral pulses, normal rate, regular rhythm, no gallop/murmur, no JVD Respiratory/Chest: Nasal canula; respiratory distress, crackles/rales, rhonchi - bilaterally, expiratory wheezing Abdomen: normal bowel sounds, non tender, soft, no organomegaly, no mass Extremities: normal range of motion Neurologic: urgent care physician 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, no motor/sensory deficits Skin: normal pigmentation, warm/dry Assessment/Plan Problem List: (1) Atrial flutter with rapid ventricular response Assessment & Plan: D/C coreg; start metoprolol and IV diltiazem per cardiology consult. (2) Respiratory failure Assessment & Plan: CHF and Pneumonia. Currently on nasal canula. See pulmonay note. (3) Pleuritic chest pain (4) Hemoptysis Assessment & Plan: Due to pneumonia (5) Pneumonia Assessment & Plan: Providencia and pseudamonas. RUL and cavitary. Concerning for TB. Await AFB cultures-see ID consult. Continue ethambutol, amikacin, levaquin and clindamycin per ID (6) Shortness of breath (7) ESRD (end stage renal disease) on dialysis Assessment & Plan: See nephrology note. Next Hemodialysis 07/21/17 per nephrology (8) Hyperkalemia Assessment & Plan: Due to renal failure. Hemodialysis 06/13/17 per nephrology (9) COPD (chronic obstructive pulmonary disease) (10) HTN (hypertension) Assessment & Plan: Continue coreg and lisinopril. (11) CHF (congestive heart failure) (12) Elevated troponin Assessment & Plan: ?due to renal failure? See cardiology note. (13) Intractable abdominal pain Assessment & Plan: See surgery note (14) Conjunctivitis Assessment & Plan: start tobramycin (15) Diarrhea Assessment & Plan: C. Diff Status: stable Assessment/Plan Discharge planning - coordination with [facility] pending ZOEY PIRES Jul 22, 2017 17:10
--- NOTE | 2017-07-22 19:11 | General Progress Note ---
Assessment/Plan Assessment/Plan Assessment - gallstones - abnormal LFT - suspect due to cirrhosis +/- meds - Periodic N/V with abnormal GB ultrasound, ? possibly biliary colic - patient declined HIDA - Anemia, multifactorial - OB (+) Stool - patient declined EGD/Colon - ESRD/HD - DM - HTN - COPD - Cavitary lung disease - Thrombocytopenia - cirrhotic appearing liver on CT - Hepatitis C Ab (+)/ PCR (-) - Poor prognosis Recommendations - PO as tolerated - follow symptoms and exam - monitor LFT - avoid hepatotoxic meds - abx per ID - Acid blockade Subjective Allergies: Coded Allergies: IODINE AND IODIDE CONTAINING PRODUC (Verified Allergy, Mild, itching and pruritis, 06/25/17) Uncoded Allergies: CONTRAST/DYE (Allergy, Intermediate, PRURITIS AND ITCHING, 06/25/17) Subjective above noted tolerating PO no vomiting no abd pain Objective Last 24 Hour Vital Signs Date Time Temp Pulse Resp B/P (MAP) Pulse Ox O2 Delivery O2 Flow Rate FiO2 07/22/17 16:00 97.7 63 20 133/85 96 97.7 07/22/17 12:00 98.2 76 20 113/68 90 Room Air 98.2 07/22/17 11:34 70 121/78 07/22/17 09:20 97.9 72 20 111/78 90 Room Air 97.9 07/22/17 08:59 75 111/56 07/22/17 08:58 111/56 07/22/17 08:00 97.5 75 20 111/56 87 97.5 07/22/17 05:24 72 115/78 07/22/17 04:24 98.1 07/22/17 04:00 97.9 72 20 115/78 90 Room Air 97.9 07/21/17 23:59 80 106/63 07/21/17 23:54 98.1 80 20 106/63 91 Room Air 98.1 07/21/17 20:23 76 130/77 07/21/17 20:23 130/77 07/21/17 20:00 Room Air 07/21/17 19:54 97.6 76 16 130/77 Room Air 97.6 Intake and Output 07/21/17 07/22/17 19:00 07:00 Intake Total 240 ml 113.2 ml Output Total 4000 ml Balance 240 ml -3886.8 ml Intake Oral 240 ml IV Total 113.2 ml Hemodialysis UF 4000 ml # Voids 3 Laboratory Tests 07/22/17 07:55: White Blood Count 4.5L, Red Blood Count 3.04L, Hemoglobin 9.7L, Hematocrit 31.0L , Mean Corpuscular Volume 102H, Mean Corpuscular Hemoglobin 31.9H, Mean Corpuscular Hemoglobin Concent 31.3L, Red Cell Distribution Width 14.0, Platelet Count 93L, Mean Platelet Volume 6.6, Neutrophils (%) (Auto) , Lymphocytes (%) (Auto) , Monocytes (%) (Auto) , Eosinophils (%) (Auto) , Basophils (%) (Auto) , Differential Total Cells Counted 100, Neutrophils % ( Manual) 56, Lymphocytes % (Manual) 25, Monocytes % (Manual) 11H, Eosinophils % ( Manual) 6H, Basophils % (Manual) 1, Band Neutrophils 1, Platelet Estimate DecreasedL, Platelet Morphology Normal, Hypochromasia 1+, Macrocytosis 1+, Stomatocytes Occasional, Sodium Level 139, Potassium Level 5.0, Chloride Level 99, Carbon Dioxide Level 31, Anion Gap 9, Blood Urea Nitrogen 53H, Creatinine 11.2H, Estimat Glomerular Filtration Rate 5.7, Glucose Level 82, Calcium Level 9.2 Height (Feet): 5 Height (Inches): 7.00 Weight (Pounds): 217 Objective WDWN AA Man NCAT supple CTA RRR Soft mildly distended, (+) trunk edema (++) leg edema PERCY JOYNER Jul 22, 2017 19:11
[2017-07-22] MEDS: ALPRAZolam 0.5mg tab ORAL PRN (19:40)
[2017-07-22] MEDS: Dyna-Hex 2% Top Sol 2oz TOPIC SCH (19:50)
[2017-07-22 20:00] VITALS: BP 112/57
--- NOTE | 2017-07-22 23:46 | General Progress Note ---
Assessment/Plan Assessment/Plan #. Anemia secondary to chronic disease. --> Hemoglobin levels have been stable. No blood transfusion required at this time. --> S/P abd CAT scan revealing evidence of hepatic cirrhosis. --> Continue to closely monitor and trend cbc daily. --> Anemia workup completed and reviewed. Iron 42, TIBC 180, Ferritin 593, B12 876. --> Ferritin is >500, hgb goal is >7 --> Anemia w/u has been reviewed --> ++Occult blood. Consider GI Services and Recs. #. Left leg dvt --> acute onset, will need to review final duplex results --> on apixaban daily x 3 months, H/H has been stable. INR improved. --> okay to change to different anticoagulant if renal clearance an issue --> If h/h downtrends below 7.5, consider ivc filter placement. --> Hemoglobin currently >7.5 #. Thrombocytopenia. --> Hepatitis C ab ++, PCR - --> Monitor platelet level. Transfuse if platelet count <20k --> Levels remain low. # Hepatosplenomegaly. Ascites. There is also evidence of generalized anasarca, with pleural fluid and generalized subcutaneous edema --> Abd pain improved on pain management --> Refer to surgery note. #. Anemia of kidney disease --> HD as needed per nephrology team --> Monitor closely. --> Does not require iron at this time #. Generalized body ache related to fluid overload. #. End-stage renal disease, on hemodialysis as needed --> On hemodialysis #. Respiratory failure due to CHF and pneumonia. --> Providencia and pseudomonas. --> On vancomycin and ethambutol per ID. --> Chest pain improved at this time, on pain management. #. Shortness of breath. Due to underlying pneumonia. #. Atrial flutter with rapid ventricular response. On metoprolol and diltiazem. #. Conjunctivitis. Begin tobramycin. On anti TB treatment. On Amikacin and ethambutol. Continue telemetry. Subjective Date patient seen: Jul 22, 2017 Constitutional: Denies: no symptoms, chills, diaphoresis, fever, malaise, weakness, other HEENT: Denies: no symptoms, eye pain, blurred vision, tearing, double vision, ear pain, ear discharge, nose pain, nose congestion, throat pain, throat swelling, mouth pain, mouth swelling, other Cardiovascular: Denies: no symptoms, chest pain, edema, irregular heart rate, lightheadedness, palpitations, syncope, other Respiratory: Denies: no symptoms, cough, orthopnea, shortness of breath, SOB with excertion, SOB at rest, sputum, stridor, wheezing, other Gastrointestinal/Abdominal: Denies: no symptoms, abdomen distended, abdominal pain, black stools, tarry stools, blood in stool, constipated, diarrhea, difficulty swallowing, nausea, poor appetite, poor fluid intake, rectal bleeding , vomiting, other Genitourinary: Denies: no symptoms, burning, discharge, frequency, flank pain, hematuria, incontinence, pain, urgency, other Neurologic/Psychiatric: Denies: no symptoms, anxiety, depressed, emotional problems, headache, numbness, paresthesia, pre-existing deficit, seizure, tingling, tremors, weakness, other Allergies: Coded Allergies: IODINE AND IODIDE CONTAINING PRODUC (Verified Allergy, Mild, itching and pruritis, 06/25/17) Uncoded Allergies: CONTRAST/DYE (Allergy, Intermediate, PRURITIS AND ITCHING, 06/25/17) Subjective Pending HD. No abd pain. Objective Last 24 Hour Vital Signs Date Time Temp Pulse Resp B/P (MAP) Pulse Ox O2 Delivery O2 Flow Rate FiO2 07/22/17 21:09 71 112/57 07/22/17 21:00 71 112/57 07/22/17 21:00 112/57 07/22/17 20:05 Nasal Cannula 2.0 28 07/22/17 20:05 71 20 Nasal Cannula 2.0 28 07/22/17 20:05 93 Nasal Cannula 2.0 28 07/22/17 20:00 98.9 72 20 112/57 88 98.9 07/22/17 16:00 97.7 63 20 133/85 96 97.7 07/22/17 12:00 98.2 76 20 113/68 90 Room Air 98.2 07/22/17 11:34 70 121/78 07/22/17 09:20 97.9 72 20 111/78 90 Room Air 97.9 07/22/17 08:59 75 111/56 07/22/17 08:58 111/56 4/17/18 08:00 97.5 75 20 111/56 87 97.5 07/22/17 05:24 72 115/78 07/22/17 04:24 98.1 07/22/17 04:00 97.9 72 20 115/78 90 Room Air 97.9 07/21/17 23:59 80 106/63 07/21/17 23:54 98.1 80 20 106/63 91 Room Air 98.1 Intake and Output 07/21/17 07/22/17 19:00 07:00 Intake Total 240 ml 113.2 ml Output Total 4000 ml Balance 240 ml -3886.8 ml Intake Oral 240 ml IV Total 113.2 ml Hemodialysis UF 4000 ml # Voids 3 Laboratory Tests 07/22/17 07:55: White Blood Count 4.5L, Red Blood Count 3.04L, Hemoglobin 9.7L, Hematocrit 31.0L , Mean Corpuscular Volume 102H, Mean Corpuscular Hemoglobin 31.9H, Mean Corpuscular Hemoglobin Concent 31.3L, Red Cell Distribution Width 14.0, Platelet Count 93L, Mean Platelet Volume 6.6, Neutrophils (%) (Auto) , Lymphocytes (%) (Auto) , Monocytes (%) (Auto) , Eosinophils (%) (Auto) , Basophils (%) (Auto) , Differential Total Cells Counted 100, Neutrophils % ( Manual) 56, Lymphocytes % (Manual) 25, Monocytes % (Manual) 11H, Eosinophils % ( Manual) 6H, Basophils % (Manual) 1, Band Neutrophils 1, Platelet Estimate DecreasedL, Platelet Morphology Normal, Hypochromasia 1+, Macrocytosis 1+, Stomatocytes Occasional, Sodium Level 139, Potassium Level 5.0, Chloride Level 99, Carbon Dioxide Level 31, Anion Gap 9, Blood Urea Nitrogen 53H, Creatinine 11.2H, Estimat Glomerular Filtration Rate 5.7, Glucose Level 82, Calcium Level 9.2 Height (Feet): 5 Height (Inches): 7.00 Weight (Pounds): 217 General Appearance: no apparent distress, confused Respiratory/Chest: decreased breath sounds Abdomen: soft ZAK RUIZ Jul 22, 2017 23:46
[2017-07-23] VITALS (7 sets, daily range): BP systolic 98–149; BP diastolic 56–91
[2017-07-23] MEDS: Clindamycin 150mg cap ORAL SCH ×2 (05:08→12:14)
[2017-07-23] MEDS: dilTIAZem HCl 60mg tab ORAL SCH ×3 (05:15→23:09)
[2017-07-23] MEDS: Eliquis 2.5mg tablet ORAL SCH ×2 (08:19→23:10)
[2017-07-23] MEDS: Lisinopril 20mg tab ORAL SCH ×2 (09:00→23:09)
[2017-07-23 10:50] LABS: HEMATOCRIT 31.1 % (42.0-52.0); HEMOGLOBIN 9.5 G/DL (14.2-18.0); MEAN CORPUSCULAR VOLUME 104 FL (80-99); PLATELET COUNT 91 K/UL (150-450); RED CELL DISTRIBUTION WIDTH 14.1 % (11.6-14.8); WHITE BLOOD COUNT 4.7 K/UL (4.8-10.8)
--- NOTE | 2017-07-23 11:10 | Nephrology Progress Note ---
Assessment/Plan Problem List: (1) ESRD (end stage renal disease) on dialysis (2) Shortness of breath (3) Anemia Assessment Anemia ESRD , missed HD on admission , admitted with high K and pulmonary edema Acute respiratory distress due to volume overload elevated troponin r/o ACS h/o COPD ? exacerbation HTN urgency Cardiomyopathy L AICD anemia of chronic kidney disease Hx of CVA Plan Plan: HD next 07/23- will care for high K with HD Kayexelate for now Max UF Transfused Phos binders BP meds adjustment Optimize cardiac status per orders Subjective ROS Limited/Unobtainable: No Constitutional: Reports: malaise Objective Objective Last 24 Hour Vital Signs Date Time Temp Pulse Resp B/P (MAP) Pulse Ox O2 Delivery O2 Flow Rate FiO2 07/23/17 09:36 98.4 07/23/17 09:06 98.4 07/23/17 08:00 97.7 70 18 132/85 98 97.7 07/23/17 07:21 Nasal Cannula 2.0 28 07/23/17 07:20 95 Nasal Cannula 2.0 28 07/23/17 07:19 70 20 Nasal Cannula 2.0 28 07/23/17 05:15 70 115/68 07/23/17 04:00 98.4 70 20 115/68 90 98.4 07/23/17 00:00 98.6 76 20 98/56 100 98.6 07/22/17 21:09 71 112/57 07/22/17 21:00 71 112/57 07/22/17 21:00 112/57 07/22/17 20:05 Nasal Cannula 2.0 28 07/22/17 20:05 71 20 Nasal Cannula 2.0 28 07/22/17 20:05 93 Nasal Cannula 2.0 28 07/22/17 20:00 98.9 72 20 112/57 88 98.9 07/22/17 16:00 97.7 63 20 133/85 96 97.7 07/22/17 12:00 98.2 76 20 113/68 90 Room Air 98.2 07/22/17 11:34 70 121/78 Intake and Output 07/22/17 07/23/17 19:00 07:00 Intake Total 300 ml Balance 300 ml Intake Oral 300 ml # Voids 2 2 Laboratory Tests 07/23/17 09:45: White Blood Count 4.7L, Red Blood Count 3.00L, Hemoglobin 9.5L, Hematocrit 31.1L , Mean Corpuscular Volume 104H, Mean Corpuscular Hemoglobin 31.6H, Mean Corpuscular Hemoglobin Concent 30.5L, Red Cell Distribution Width 14.1, Platelet Count 91L, Mean Platelet Volume 6.7, Neutrophils (%) (Auto) , Lymphocytes (%) (Auto) , Monocytes (%) (Auto) , Eosinophils (%) (Auto) , Basophils (%) (Auto) , Neutrophils % (Manual) [Pending], Lymphocytes % (Manual) [Pending], Platelet Estimate [Pending], Platelet Morphology [Pending], Sodium Level [Pending], Potassium Level [Pending], Chloride Level [Pending], Carbon Dioxide Level [Pending], Blood Urea Nitrogen [Pending], Creatinine [Pending], Estimat Glomerular Filtration Rate [Pending], Glucose Level [Pending], Calcium Level [Pending] Height (Feet): 5 Height (Inches): 7.00 Weight (Pounds): 219 General Appearance: no apparent distress Objective no change LIAM MONTELONGO Jul 23, 2017 11:10
[2017-07-23 11:23] LABS: ANION GAP 12 mmol/L (5-15); BLOOD UREA NITROGEN 64 mg/dL (7-18); CALCIUM 9.1 MG/DL (8.5-10.1); CARBON DIOXIDE 29 MMOL/L (21-32); CHLORIDE 98 MMOL/L (98-107); CREATININE 12.9 MG/DL (0.55-1.30); POTASSIUM 5.3 MMOL/L (3.5-5.1); SODIUM 139 MMOL/L (136-145)
--- NOTE | 2017-07-23 11:37 | Internal Med Progress Note ---
Subjective Date of Service: Jul 23, 2017 Physician Name Zoey Pires Attending Physician Chaitanya Weinstein MD Current Medications Medications (Trade) Dose Ordered Sig/Jose Route PRN Reason Start Time Stop Time Status Last Admin Dose Admin Alprazolam (Xanax) 2 mg DAILYPRN PRN ORAL For Anxiety 07/16/17 15:15 07/23/17 15:14 07/22/17 19:40 Amikacin Protocol (Amikacin pharmacy to dose) 1 ea DAILY PRN MISC Per rx protocol 07/16/17 09:00 08/03/17 15:14 Amikacin Sulfate 800 mg/Dextrose 113.2 ml @ 226.4 mls/ hr FRI-FRI-FRI IV 07/18/17 21:00 07/25/17 20:59 07/21/17 20:22 Apixaban (Eliquis) 2.5 mg Q12HR ORAL 07/16/17 09:00 08/15/17 08:59 07/23/17 08:19 Carisoprodol (Soma) 350 mg Q6H PRN ORAL Muscle Spasm 07/18/17 15:30 08/17/17 15:29 07/22/17 01:01 Chlorhexidine Gluconate (Mireille-Hex 2%) 1 applic DAILY@1999 TOPIC 07/15/17 20:00 08/02/17 19:59 07/22/17 19:50 Clindamycin HCl (Cleocin) 450 mg EVERY 6 HOURS ORAL 07/16/17 18:00 07/23/17 17:59 07/23/17 05:08 Dextrose (Dextrose 50%) 25 ml STAT PRN IV HYPOGLYCEMIA 07/16/17 08:30 08/08/17 08:29 Diltiazem HCl (Cardizem) 60 mg Q8HR ORAL 07/22/17 22:00 08/21/17 21:59 Ethambutol HCl (Myambutol) 1,000 mg 3XW@2099 ORAL 07/23/17 21:00 08/22/17 20:59 Hydromorphone HCl (Dilaudid) 2 mg Q4H PRN IVP Severe Pain (Pain Scale 7-10) 07/16/17 21:15 07/23/17 21:14 07/23/17 09:06 Levofloxacin (Levaquin) 750 mg EVERY OTHER DAY@1999 ORAL 07/23/17 20:00 07/30/17 19:59 Lisinopril (Prinivil) 20 mg Q12HR ORAL 07/16/17 09:00 08/15/17 08:59 07/22/17 08:58 Metoprolol Tartrate (Lopressor) 100 mg Q12HR ORAL 07/15/17 21:00 08/10/17 20:59 07/22/17 08:59 Ondansetron HCl (Zofran) 4 mg Q6H PRN IVP Nausea & Vomiting 07/18/17 15:30 08/17/17 15:29 07/23/17 08:18 Allergies: Coded Allergies: IODINE AND IODIDE CONTAINING PRODUC (Verified Allergy, Mild, itching and pruritis, 06/25/17) Uncoded Allergies: CONTRAST/DYE (Allergy, Intermediate, PRURITIS AND ITCHING, 06/25/17) ROS Limited/Unobtainable: No Constitutional: Reports: no symptoms HEENT: Reports: no symptoms Cardiovascular: Reports: no symptoms Respiratory: Reports: no symptoms Gastrointestinal/Abdominal: Reports: no symptoms Genitourinary: Reports: no symptoms Neurologic/Psychiatric: Reports: no symptoms Subjective 57 YO M admitted with chest pain and shortness of breath. Now pneumonia and candelaria heart failure. Back on nasal canula. Cover for Int Misbah-Dr Weinstein. Now atrial flutter Objective Last Vital Signs Date Time Temp Pulse Resp B/P (MAP) Pulse Ox O2 Delivery O2 Flow Rate FiO2 07/23/17 09:36 98.4 07/23/17 08:00 70 18 132/85 98 07/23/17 07:21 Nasal Cannula 2.0 28 Laboratory Tests Test 07/23/17 09:45 White Blood Count 4.7 K/UL (4.8-10.8) L Red Blood Count 3.00 M/UL (4.70-6.10) L Hemoglobin 9.5 G/DL (14.2-18.0) L Hematocrit 31.1 % (42.0-52.0) L Mean Corpuscular Volume 104 FL (80-99) H Mean Corpuscular Hemoglobin 31.6 PG (27.0-31.0) H Mean Corpuscular Hemoglobin Concent 30.5 G/DL (32.0-36.0) L Red Cell Distribution Width 14.1 % (11.6-14.8) Platelet Count 91 K/UL (150-450) L Mean Platelet Volume 6.7 FL (6.5-10.1) Neutrophils (%) (Auto) % (45.0-75.0) Lymphocytes (%) (Auto) % (20.0-45.0) Monocytes (%) (Auto) % (1.0-10.0) Eosinophils (%) (Auto) % (0.0-3.0) Basophils (%) (Auto) % (0.0-2.0) Neutrophils % (Manual) Pending Lymphocytes % (Manual) Pending Platelet Estimate Pending Platelet Morphology Pending Sodium Level 139 MMOL/L (136-145) Potassium Level 5.3 MMOL/L (3.5-5.1) H Chloride Level 98 MMOL/L (98-107) Carbon Dioxide Level 29 MMOL/L (21-32) Anion Gap 12 mmol/L (5-15) Blood Urea Nitrogen 64 mg/dL (7-18) H Creatinine 12.9 MG/DL (0.55-1.30) H Estimat Glomerular Filtration Rate 4.8 mL/min (>60) Glucose Level 88 MG/DL (74-106) Calcium Level 9.1 MG/DL (8.5-10.1) Intake and Output 07/22/17 07/23/17 19:00 07:00 Intake Total 300 ml Balance 300 ml Intake Oral 300 ml # Voids 2 2 Objective General Appearance: WD/WN, alert, moderate distress EENT: PERRL/EOMI, normal ENT inspection Neck: non-tender, normal alignment, supple, normal inspection Cardiovascular: Tachycardia; normal peripheral pulses, normal rate, regular rhythm, no gallop/murmur, no JVD Respiratory/Chest: Nasal canula; respiratory distress, crackles/rales, rhonchi - bilaterally, expiratory wheezing Abdomen: normal bowel sounds, non tender, soft, no organomegaly, no mass Extremities: normal range of motion 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 (2) Respiratory failure Assessment & Plan: CHF and Pneumonia. Currently on nasal canula. See pulmonay note. (3) Pleuritic chest pain (4) Hemoptysis Assessment & Plan: Due to pneumonia (5) Pneumonia Assessment & Plan: Providencia and pseudamonas. RUL and cavitary. Concerning for TB. Await AFB cultures-see ID consult. Continue ethambutol, amikacin, levaquin and clindamycin per ID (6) Shortness of breath (7) ESRD (end stage renal disease) on dialysis Assessment & Plan: See nephrology note. Next Hemodialysis 07/23/17 per nephrology (8) Hyperkalemia Assessment & Plan: Due to renal failure. Hemodialysis 06/13/17 per nephrology (9) COPD (chronic obstructive pulmonary disease) (10) HTN (hypertension) Assessment & Plan: Continue coreg and lisinopril. (11) CHF (congestive heart failure) (12) Elevated troponin Assessment & Plan: ?due to renal failure? See cardiology note. (13) Intractable abdominal pain Assessment & Plan: See surgery note (14) Conjunctivitis Assessment & Plan: start tobramycin (15) Diarrhea Assessment & Plan: C. Diff Assessment/Plan Discharge planning - coordination with [facility] pending ZOEY PIRES Jul 23, 2017 11:36
--- NOTE | 2017-07-23 12:18 | Infectious Diseases Prog Note ---
Assessment/Plan Assessment/Plan Cavitary PNA. SCx: Neg ( m/l necrotizing Pneum, vs anaerobic abscess, doubt TB or fungal ) ; improving - 07/09 SP BAL Cx( Abby and MOJGAN : Colonizers ) , Path : Neg for fungus and Malignancy - -CT 07/15 : he overall lesion appears smaller, measuring 6.3 cm AP by 3.6 cm transverse by 2.3 cm craniocaudad currently -CT chest 06/25: Since the prior study of 06/15/2017, and. From further reduction in size of previously demonstrated thick walled right upper lobe cavitary mass. This was previously thought to most likely represent a cavitary inflammatory mass, and the interim reduction in size certainly supports that. Much less likely a cavitary neoplasm, but follow-up to resolution is recommended. Markedly improved parenchymal disease bilaterally, since the previous study. Nonetheless , extensive atelectasis and groundglass consolidation persists. Persistent small right pleural effusion, smaller than on the prior study. Resolved left pleural effusion 6 mm nodular opacity in the right upper lobe, not evident previously but likely obscured by surrounding consolidated lung parenchyma. This should be followed up in 6 months to one year depending on results of interim follow-up exams T-SPOT :Neg Culture and stain AFB x 3 : Neg MTB PCR x2 : neg cryptococcus Ag, Histoplams mycelial Ab , Blastomyces ab : neg ; histoplasma yeast ab (not able to be done due to anticomplementary activity) -Cocci, Asp ag p -Fungitell + 144 (?aspergillosis vs m/l false positive) CT chest 06/15: Slightly smaller (6 cm diameter ) but mostly unchanged cavitary lesion in the right lung, previously thought to represent a cavitating inflammatory process. Lung abscess is certainly a possibility. Fairly extensive bilateral pulmonary parenchymal consolidation, slightly increased from previous exam of 06/05/2017. Likely a combination of pulmonary edema and pneumonia. Small right and trace left pleural effusion, new/increased from the previous study. CT 06/05: 7.8 x 5.3 x 6.6 cm dense opacity in the posterior inferior right upper lobe with a central cavitation. CRP 14 Influenza negative Coccidioidal ,Galactomannan : NEG ( PER LAB ) Transaminitis , improving after stopping rifampin /2 Hep C cirrhosis- no active Hep C as VL not detected -CT abd/p: Evidence of hepatic cirrhosis. Hepatosplenomegaly. evidence of generalized anasarca, with pleural fluid and generalized subcutaneous edema. Cholelithiasis, also previously reported. Possible diverticulosis. No evidence of diverticulitis US Abd : Cholelithiasis. There is gallbladder wall thickening, likely related to hemodynamic abnormalities Splenomegaly. Evidence of hepatic cirrhosis HIV : NEG Hep Panel B neg , C Ab : +ve , VL not detected leukopenia and TCP 2/2 splenomegaly Seizure disorder History of CVA History of pacemaker placement Hyperlipidemia Hypertension COPD/asthma End-stage renal disease, on hemodialysis Diabetes Anxiety Anemia Echo, ejection fraction 45% to 50%. PLAN: - Cont oral Clinda d# 7 ( till resolution of of abscess) ( abx d# 46 ) Continue empiric Ethambutol and Levaquin, Amikacin ( empiric TB AB Rx d# 36 as per TB control request, this was DW TB control , still insists to cont w TB regiment till final cultures are back ) 07/16 SP DC Zoysn d# 9 ( for SOB and CXR worsen , better coverage of anaerobes, PSA and Providencia ); 07/07 SP Dc Flagyl 07/06 SP Voriconazole ( low antonio for fungal infection , and in the setting of cirrhosis ) 07/05 SP Micafungin abx d#20 , Rifampin 600mg qd #10 07/01 SP Ceftriaxone #10 06/28 SP Amikacin #15 06/25 SP PO Voriconazole #3 06/20 SP Liposomal Ampho #8 06/17 SP IV Vancomycin #14, Meropenem #5 06/13 SP Zosyn d# 10 06/08 SP Zithromax D# 6 BAL fungal and AFB Cx : P - CMP called TB control they want to cont TB Meds regardless of AFB Cultures Neg x 3 ( 07/22 ) Subjective Allergies: Coded Allergies: IODINE AND IODIDE CONTAINING PRODUC (Verified Allergy, Mild, itching and pruritis, 06/25/17) Uncoded Allergies: CONTRAST/DYE (Allergy, Intermediate, PRURITIS AND ITCHING, 06/25/17) Subjective comfortable Objective Vital Signs Last 24 Hour Vital Signs Date Time Temp Pulse Resp B/P (MAP) Pulse Ox O2 Delivery O2 Flow Rate FiO2 07/23/17 09:36 98.4 07/23/17 09:06 98.4 07/23/17 08:00 97.7 70 18 132/85 98 97.7 07/23/17 07:21 Nasal Cannula 2.0 28 07/23/17 07:20 95 Nasal Cannula 2.0 28 07/23/17 07:19 70 20 Nasal Cannula 2.0 28 07/23/17 05:15 70 115/68 07/23/17 04:00 98.4 70 20 115/68 90 98.4 07/23/17 00:00 98.6 76 20 98/56 100 98.6 07/22/17 21:09 71 112/57 07/22/17 21:00 71 112/57 07/22/17 21:00 112/57 07/22/17 20:05 Nasal Cannula 2.0 28 07/22/17 20:05 71 20 Nasal Cannula 2.0 28 07/22/17 20:05 93 Nasal Cannula 2.0 28 07/22/17 20:00 98.9 72 20 112/57 88 98.9 07/22/17 16:00 97.7 63 20 133/85 96 97.7 Height (Feet): 5 Height (Inches): 7.00 Weight (Pounds): 219 HEENT: mucous membranes moist Respiratory/Chest: no respiratory distress Cardiovascular: regular rhythm Abdomen: no organomegaly Laboratory Tests Test 07/23/17 09:45 White Blood Count 4.7 K/UL (4.8-10.8) L Red Blood Count 3.00 M/UL (4.70-6.10) L Hemoglobin 9.5 G/DL (14.2-18.0) L Hematocrit 31.1 % (42.0-52.0) L Mean Corpuscular Volume 104 FL (80-99) H Mean Corpuscular Hemoglobin 31.6 PG (27.0-31.0) H Mean Corpuscular Hemoglobin Concent 30.5 G/DL (32.0-36.0) L Red Cell Distribution Width 14.1 % (11.6-14.8) Platelet Count 91 K/UL (150-450) L Mean Platelet Volume 6.7 FL (6.5-10.1) Neutrophils (%) (Auto) % (45.0-75.0) Lymphocytes (%) (Auto) % (20.0-45.0) Monocytes (%) (Auto) % (1.0-10.0) Eosinophils (%) (Auto) % (0.0-3.0) Basophils (%) (Auto) % (0.0-2.0) Differential Total Cells Counted 100 Neutrophils % (Manual) 47 % (45-75) Lymphocytes % (Manual) 21 % (20-45) Monocytes % (Manual) 18 % (1-10) H Eosinophils % (Manual) 14 % (0-3) H Basophils % (Manual) 0 % (0-2) Band Neutrophils 0 % (0-8) Platelet Estimate Decreased L Platelet Morphology Normal Sodium Level 139 MMOL/L (136-145) Potassium Level 5.3 MMOL/L (3.5-5.1) H Chloride Level 98 MMOL/L (98-107) Carbon Dioxide Level 29 MMOL/L (21-32) Anion Gap 12 mmol/L (5-15) Blood Urea Nitrogen 64 mg/dL (7-18) H Creatinine 12.9 MG/DL (0.55-1.30) H Estimat Glomerular Filtration Rate 4.8 mL/min (>60) Glucose Level 88 MG/DL (74-106) Calcium Level 9.1 MG/DL (8.5-10.1) Current Medications Medications (Trade) Dose Ordered Sig/Jose Route PRN Reason Start Time Stop Time Status Last Admin Dose Admin Alprazolam (Xanax) 2 mg DAILYPRN PRN ORAL For Anxiety 07/16/17 15:15 07/23/17 15:14 07/22/17 19:40 Amikacin Protocol (Amikacin pharmacy to dose) 1 ea DAILY PRN MISC Per rx protocol 07/16/17 09:00 08/03/17 15:14 Amikacin Sulfate 800 mg/Dextrose 113.2 ml @ 226.4 mls/ hr MON-WED-FRI IV 07/18/17 21:00 07/25/17 20:59 07/21/17 20:22 Apixaban (Eliquis) 2.5 mg Q12HR ORAL 07/16/17 09:00 08/15/17 08:59 07/23/17 08:19 Carisoprodol (Soma) 350 mg Q6H PRN ORAL Muscle Spasm 07/18/17 15:30 08/17/17 15:29 07/22/17 01:01 Chlorhexidine Gluconate (Mireille-Hex 2%) 1 applic DAILY@1999 TOPIC 07/15/17 20:00 08/02/17 19:59 07/22/17 19:50 Clindamycin HCl (Cleocin) 450 mg EVERY 6 HOURS ORAL 07/16/17 18:00 07/23/17 17:59 07/23/17 12:14 Dextrose (Dextrose 50%) 25 ml STAT PRN IV HYPOGLYCEMIA 07/16/17 08:30 08/08/17 08:29 Diltiazem HCl (Cardizem) 60 mg Q8HR ORAL 07/22/17 22:00 08/21/17 21:59 Ethambutol HCl (Myambutol) 1,000 mg 3XW@2099 ORAL 07/23/17 21:00 08/22/17 20:59 Hydromorphone HCl (Dilaudid) 2 mg Q4H PRN IVP Severe Pain (Pain Scale 7-10) 07/16/17 21:15 07/23/17 21:14 07/23/17 09:06 Levofloxacin (Levaquin) 750 mg EVERY OTHER DAY@1999 ORAL 07/23/17 20:00 07/30/17 19:59 Lisinopril (Prinivil) 20 mg Q12HR ORAL 07/16/17 09:00 08/15/17 08:59 07/22/17 08:58 Metoprolol Tartrate (Lopressor) 100 mg Q12HR ORAL 07/15/17 21:00 08/10/17 20:59 07/22/17 08:59 Ondansetron HCl (Zofran) 4 mg Q6H PRN IVP Nausea & Vomiting 07/18/17 15:30 08/17/17 15:29 07/23/17 08:18 Cristofer Antunez MD Jul 23, 2017 12:18
--- NOTE | 2017-07-23 12:27 | Pulmonology Progress Note ---
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 chaparro again, tb control insisting on TB medication although, cultures are negative continue current meds TB control insist on continuing TB meds Subjective ROS Limited/Unobtainable: No Constitutional: Reports: no symptoms HEENT: Repors: no symptoms Allergies: Coded Allergies: IODINE AND IODIDE CONTAINING PRODUC (Verified Allergy, Mild, itching and pruritis, 06/25/17) Uncoded Allergies: CONTRAST/DYE (Allergy, Intermediate, PRURITIS AND ITCHING, 06/25/17) Objective Last 24 Hour Vital Signs Date Time Temp Pulse Resp B/P (MAP) Pulse Ox O2 Delivery O2 Flow Rate FiO2 07/23/17 09:36 98.4 07/23/17 09:06 98.4 07/23/17 08:00 97.7 70 18 132/85 98 97.7 07/23/17 07:21 Nasal Cannula 2.0 28 07/23/17 07:20 95 Nasal Cannula 2.0 28 07/23/17 07:19 70 20 Nasal Cannula 2.0 28 07/23/17 05:15 70 115/68 07/23/17 04:00 98.4 70 20 115/68 90 98.4 07/23/17 00:00 98.6 76 20 98/56 100 98.6 07/22/17 21:09 71 112/57 07/22/17 21:00 71 112/57 07/22/17 21:00 112/57 07/22/17 20:05 Nasal Cannula 2.0 28 07/22/17 20:05 71 20 Nasal Cannula 2.0 28 07/22/17 20:05 93 Nasal Cannula 2.0 28 07/22/17 20:00 98.9 72 20 112/57 88 98.9 07/22/17 16:00 97.7 63 20 133/85 96 97.7 Intake and Output 07/22/17 07/23/17 19:00 07:00 Intake Total 300 ml Balance 300 ml Intake Oral 300 ml # Voids 2 2 Objective General Appearance: WD/WN HEENT: normocephalic, atraumatic, anicteric Respiratory/Chest: loud rhonchi Cardiovascular: normal peripheral pulses, normal rate, regular rhythm Abdomen: normal bowel sounds, soft, non tender, no organomegaly Genitourinary: normal external genitalia Extremities: no cyanosis Skin: no rash, no lesions 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, no motor/sensory deficits Lymphatic: no neck adenopathy, no groin adenopathy Laboratory Tests 07/23/17 09:45: White Blood Count 4.7L, Red Blood Count 3.00L, Hemoglobin 9.5L, Hematocrit 31.1L , Mean Corpuscular Volume 104H, Mean Corpuscular Hemoglobin 31.6H, Mean Corpuscular Hemoglobin Concent 30.5L, Red Cell Distribution Width 14.1, Platelet Count 91L, Mean Platelet Volume 6.7, Neutrophils (%) (Auto) , Lymphocytes (%) (Auto) , Monocytes (%) (Auto) , Eosinophils (%) (Auto) , Basophils (%) (Auto) , Differential Total Cells Counted 100, Neutrophils % ( Manual) 47, Lymphocytes % (Manual) 21, Monocytes % (Manual) 18H, Eosinophils % ( Manual) 14H, Basophils % (Manual) 0, Band Neutrophils 0, Platelet Estimate DecreasedL, Platelet Morphology Normal, Sodium Level 139, Potassium Level 5.3H, Chloride Level 98, Carbon Dioxide Level 29, Anion Gap 12, Blood Urea Nitrogen 64H, Creatinine 12.9H, Estimat Glomerular Filtration Rate 4.8, Glucose Level 88 , Calcium Level 9.1 Current Medications Medications (Trade) Dose Ordered Sig/Jose Route PRN Reason Start Time Stop Time Status Last Admin Dose Admin Alprazolam (Xanax) 2 mg DAILYPRN PRN ORAL For Anxiety 07/16/17 15:15 07/23/17 15:14 07/22/17 19:40 Amikacin Protocol (Amikacin pharmacy to dose) 1 ea DAILY PRN MISC Per rx protocol 07/16/17 09:00 08/03/17 15:14 Amikacin Sulfate 800 mg/Dextrose 113.2 ml @ 226.4 mls/ hr MON-WED-FRI IV 07/18/17 21:00 07/25/17 20:59 07/21/17 20:22 Apixaban (Eliquis) 2.5 mg Q12HR ORAL 07/16/17 09:00 08/15/17 08:59 07/23/17 08:19 Carisoprodol (Soma) 350 mg Q6H PRN ORAL Muscle Spasm 07/18/17 15:30 08/17/17 15:29 07/22/17 01:01 Chlorhexidine Gluconate (Mireille-Hex 2%) 1 applic DAILY@1999 TOPIC 07/15/17 20:00 08/02/17 19:59 07/22/17 19:50 Clindamycin HCl (Cleocin) 450 mg EVERY 6 HOURS ORAL 07/16/17 18:00 07/23/17 17:59 07/23/17 12:14 Dextrose (Dextrose 50%) 25 ml STAT PRN IV HYPOGLYCEMIA 07/16/17 08:30 08/08/17 08:29 Diltiazem HCl (Cardizem) 60 mg Q8HR ORAL 07/22/17 22:00 08/21/17 21:59 Ethambutol HCl (Myambutol) 1,000 mg 3XW@2099 ORAL 07/23/17 21:00 08/22/17 20:59 Hydromorphone HCl (Dilaudid) 2 mg Q4H PRN IVP Severe Pain (Pain Scale 7-10) 07/16/17 21:15 07/23/17 21:14 07/23/17 09:06 Levofloxacin (Levaquin) 750 mg EVERY OTHER DAY@1999 ORAL 07/23/17 20:00 07/30/17 19:59 Lisinopril (Prinivil) 20 mg Q12HR ORAL 07/16/17 09:00 08/15/17 08:59 07/22/17 08:58 Metoprolol Tartrate (Lopressor) 100 mg Q12HR ORAL 07/15/17 21:00 08/10/17 20:59 07/22/17 08:59 Ondansetron HCl (Zofran) 4 mg Q6H PRN IVP Nausea & Vomiting 07/18/17 15:30 08/17/17 15:29 07/23/17 08:18 Christine Morgan MD Jul 23, 2017 12:27
[2017-07-23] MEDS: ALPRAZolam 0.5mg tab ORAL PRN (21:06)
--- NOTE | 2017-07-23 21:34 | General Progress Note ---
Assessment/Plan Assessment/Plan Assessment - gallstones - abnormal LFT - suspect due to cirrhosis +/- meds - Periodic N/V with abnormal GB ultrasound, ? possibly biliary colic - patient declined HIDA - Anemia, multifactorial - OB (+) Stool - patient declined EGD/Colon - ESRD/HD - DM - HTN - COPD - Cavitary lung disease - Thrombocytopenia - cirrhotic appearing liver on CT - Hepatitis C Ab (+)/ PCR (-) - Poor prognosis Recommendations - PO as tolerated - follow symptoms and exam - monitor LFT - avoid hepatotoxic meds - abx per ID - Acid blockade Subjective Allergies: Coded Allergies: IODINE AND IODIDE CONTAINING PRODUC (Verified Allergy, Mild, itching and pruritis, 06/25/17) Uncoded Allergies: CONTRAST/DYE (Allergy, Intermediate, PRURITIS AND ITCHING, 06/25/17) Subjective above noted tolerating PO advised to minimize narcotics no vomiting no abd pain Objective Last 24 Hour Vital Signs Date Time Temp Pulse Resp B/P (MAP) Pulse Ox O2 Delivery O2 Flow Rate FiO2 07/23/17 20:22 93 Nasal Cannula 2.0 28 07/23/17 20:22 Nasal Cannula 2.0 28 07/23/17 20:22 78 20 Nasal Cannula 2.0 28 07/23/17 17:47 98.4 07/23/17 17:17 98.4 07/23/17 16:00 97.9 78 18 127/80 93 97.9 07/23/17 13:21 98.4 07/23/17 09:06 98.4 07/23/17 08:00 97.7 70 18 132/85 98 97.7 07/23/17 07:21 Nasal Cannula 2.0 28 07/23/17 07:20 95 Nasal Cannula 2.0 28 07/23/17 07:19 70 20 Nasal Cannula 2.0 28 07/23/17 05:15 70 115/68 07/23/17 04:00 98.4 70 20 115/68 90 98.4 07/23/17 00:00 98.6 76 20 98/56 100 98.6 Intake and Output 07/22/17 07/23/17 19:00 07:00 Intake Total 300 ml Balance 300 ml Intake Oral 300 ml # Voids 2 2 Laboratory Tests 07/23/17 09:45: White Blood Count 4.7L, Red Blood Count 3.00L, Hemoglobin 9.5L, Hematocrit 31.1L , Mean Corpuscular Volume 104H, Mean Corpuscular Hemoglobin 31.6H, Mean Corpuscular Hemoglobin Concent 30.5L, Red Cell Distribution Width 14.1, Platelet Count 91L, Mean Platelet Volume 6.7, Neutrophils (%) (Auto) , Lymphocytes (%) (Auto) , Monocytes (%) (Auto) , Eosinophils (%) (Auto) , Basophils (%) (Auto) , Differential Total Cells Counted 100, Neutrophils % ( Manual) 47, Lymphocytes % (Manual) 21, Monocytes % (Manual) 18H, Eosinophils % ( Manual) 14H, Basophils % (Manual) 0, Band Neutrophils 0, Platelet Estimate DecreasedL, Platelet Morphology Normal, Sodium Level 139, Potassium Level 5.3H, Chloride Level 98, Carbon Dioxide Level 29, Anion Gap 12, Blood Urea Nitrogen 64H, Creatinine 12.9H, Estimat Glomerular Filtration Rate 4.8, Glucose Level 88 , Calcium Level 9.1 Height (Feet): 5 Height (Inches): 7.00 Weight (Pounds): 219 Objective WDWN AA Man NCAT supple CTA RRR Soft mildly distended, (+) trunk edema (++) leg edema PERCY JOYNER Jul 23, 2017 21:34
--- NOTE | 2017-07-23 22:45 | General Progress Note ---
Assessment/Plan Assessment/Plan #. Anemia secondary to chronic disease. --> Hemoglobin levels have been stable. No blood transfusion required at this time. --> S/P abd CAT scan revealing evidence of hepatic cirrhosis. --> Continue to closely monitor and trend cbc daily. --> Anemia workup completed and reviewed. Iron 42, TIBC 180, Ferritin 593, B12 876. --> Ferritin is >500, hgb goal is >7 --> Anemia w/u has been reviewed --> ++Occult blood. Consider GI Services and Recs. #. Left leg dvt --> acute onset, will need to review final duplex results --> on apixaban daily x 3 months, H/H has been stable. INR improved. --> okay to change to different anticoagulant if renal clearance an issue --> If h/h downtrends below 7.5, consider ivc filter placement. --> Hemoglobin currently >7.5 #. Thrombocytopenia. --> Hepatitis C ab ++, PCR - --> Monitor platelet level. Transfuse if platelet count <20k --> Levels remain low. # Hepatosplenomegaly. Ascites. There is also evidence of generalized anasarca, with pleural fluid and generalized subcutaneous edema --> Abd pain improved on pain management --> Refer to surgery note. #. Anemia of kidney disease --> HD as needed per nephrology team --> Monitor closely. --> Does not require iron at this time #. Generalized body ache related to fluid overload. #. End-stage renal disease, on hemodialysis as needed --> On hemodialysis #. Respiratory failure due to CHF and pneumonia. --> Providencia and pseudomonas. --> On vancomycin and ethambutol per ID. --> Chest pain improved at this time, on pain management. #. Shortness of breath. Due to underlying pneumonia. #. Atrial flutter with rapid ventricular response. On metoprolol and diltiazem. #. Conjunctivitis. Begin tobramycin. On anti TB treatment. On Amikacin and ethambutol. Continue telemetry. Subjective Date patient seen: Jul 23, 2017 Constitutional: Denies: no symptoms, chills, diaphoresis, fever, malaise, weakness, other HEENT: Denies: no symptoms, eye pain, blurred vision, tearing, double vision, ear pain, ear discharge, nose pain, nose congestion, throat pain, throat swelling, mouth pain, mouth swelling, other Cardiovascular: Denies: no symptoms, chest pain, edema, irregular heart rate, lightheadedness, palpitations, syncope, other Respiratory: Denies: no symptoms, cough, orthopnea, shortness of breath, SOB with excertion, SOB at rest, sputum, stridor, wheezing, other Gastrointestinal/Abdominal: Denies: no symptoms, abdomen distended, abdominal pain, black stools, tarry stools, blood in stool, constipated, diarrhea, difficulty swallowing, nausea, poor appetite, poor fluid intake, rectal bleeding , vomiting, other Genitourinary: Denies: no symptoms, burning, discharge, frequency, flank pain, hematuria, incontinence, pain, urgency, other Neurologic/Psychiatric: Denies: no symptoms, anxiety, depressed, emotional problems, headache, numbness, paresthesia, pre-existing deficit, seizure, tingling, tremors, weakness, other Hematologic/Lymphatic: Reports: anemia Allergies: Coded Allergies: IODINE AND IODIDE CONTAINING PRODUC (Verified Allergy, Mild, itching and pruritis, 06/25/17) Uncoded Allergies: CONTRAST/DYE (Allergy, Intermediate, PRURITIS AND ITCHING, 06/25/17) Subjective On HD. Pain control. No new events. Objective Last 24 Hour Vital Signs Date Time Temp Pulse Resp B/P (MAP) Pulse Ox O2 Delivery O2 Flow Rate FiO2 07/23/17 20:22 93 Nasal Cannula 2.0 28 07/23/17 20:22 Nasal Cannula 2.0 28 07/23/17 20:22 78 20 Nasal Cannula 2.0 28 07/23/17 20:00 98.3 77 22 149/91 95 98.3 07/23/17 19:00 Nasal Cannula 2.5 07/23/17 19:00 98.4 78 18 127/80 93 Nasal Cannula 2.0 28 98.4 07/23/17 17:47 98.4 07/23/17 17:17 98.4 07/23/17 16:00 97.9 78 18 127/80 93 97.9 07/23/17 13:21 98.4 07/23/17 09:06 98.4 07/23/17 08:00 97.7 70 18 132/85 98 97.7 07/23/17 07:21 Nasal Cannula 2.0 28 07/23/17 07:20 95 Nasal Cannula 2.0 28 07/23/17 07:19 70 20 Nasal Cannula 2.0 28 07/23/17 05:15 70 115/68 07/23/17 04:00 98.4 70 20 115/68 90 98.4 07/23/17 00:00 98.6 76 20 98/56 100 98.6 Intake and Output 07/22/17 07/23/17 19:00 07:00 Intake Total 300 ml Balance 300 ml Intake Oral 300 ml # Voids 2 2 Laboratory Tests 07/23/17 09:45: White Blood Count 4.7L, Red Blood Count 3.00L, Hemoglobin 9.5L, Hematocrit 31.1L , Mean Corpuscular Volume 104H, Mean Corpuscular Hemoglobin 31.6H, Mean Corpuscular Hemoglobin Concent 30.5L, Red Cell Distribution Width 14.1, Platelet Count 91L, Mean Platelet Volume 6.7, Neutrophils (%) (Auto) , Lymphocytes (%) (Auto) , Monocytes (%) (Auto) , Eosinophils (%) (Auto) , Basophils (%) (Auto) , Differential Total Cells Counted 100, Neutrophils % ( Manual) 47, Lymphocytes % (Manual) 21, Monocytes % (Manual) 18H, Eosinophils % ( Manual) 14H, Basophils % (Manual) 0, Band Neutrophils 0, Platelet Estimate DecreasedL, Platelet Morphology Normal, Sodium Level 139, Potassium Level 5.3H, Chloride Level 98, Carbon Dioxide Level 29, Anion Gap 12, Blood Urea Nitrogen 64H, Creatinine 12.9H, Estimat Glomerular Filtration Rate 4.8, Glucose Level 88 , Calcium Level 9.1 Height (Feet): 5 Height (Inches): 7.00 Weight (Pounds): 219 General Appearance: no apparent distress, confused Cardiovascular: normal rate Respiratory/Chest: decreased breath sounds Abdomen: non tender, soft ZAK RUIZ Jul 23, 2017 22:45
[2017-07-23] MEDS: Dyna-Hex 2% Top Sol 2oz TOPIC SCH (23:06)
[2017-07-24] MEDS: AMIKACIN IV SCH (01:58)
[2017-07-24] MEDS: D5W IV SCH (01:58)
[2017-07-24 04:00] VITALS: BP 114/73
[2017-07-24] MEDS: dilTIAZem HCl 60mg tab ORAL SCH ×3 (05:59→22:27)
[2017-07-24 07:52] LABS: ANION GAP 7 mmol/L (5-15); BLOOD UREA NITROGEN 44 mg/dL (7-18); CALCIUM 9.1 MG/DL (8.5-10.1); CARBON DIOXIDE 34 MMOL/L (21-32); CHLORIDE 100 MMOL/L (98-107); CREATININE 9.7 MG/DL (0.55-1.30); POTASSIUM 4.4 MMOL/L (3.5-5.1); SODIUM 141 MMOL/L (136-145)
[2017-07-24 08:00] VITALS: BP 108/59
[2017-07-24] MEDS: Lisinopril 20mg tab ORAL SCH ×2 (09:00→20:46)
[2017-07-24] MEDS: Eliquis 2.5mg tablet ORAL SCH ×2 (09:14→20:48)
--- NOTE | 2017-07-24 10:07 | Infectious Diseases Prog Note ---
Assessment/Plan Assessment/Plan Cavitary PNA. SCx: Neg ( m/l necrotizing Pneum, vs anaerobic abscess, doubt TB or fungal ) ; improving - 07/09 SP BAL Cx( Abby and MOJGAN : Colonizers ) , Path : Neg for fungus and Malignancy - -CT 07/15 : he overall lesion appears smaller, measuring 6.3 cm AP by 3.6 cm transverse by 2.3 cm craniocaudad currently -CT chest 06/25: Since the prior study of 06/15/2017, and. From further reduction in size of previously demonstrated thick walled right upper lobe cavitary mass. This was previously thought to most likely represent a cavitary inflammatory mass, and the interim reduction in size certainly supports that. Much less likely a cavitary neoplasm, but follow-up to resolution is recommended. Markedly improved parenchymal disease bilaterally, since the previous study. Nonetheless , extensive atelectasis and groundglass consolidation persists. Persistent small right pleural effusion, smaller than on the prior study. Resolved left pleural effusion 6 mm nodular opacity in the right upper lobe, not evident previously but likely obscured by surrounding consolidated lung parenchyma. This should be followed up in 6 months to one year depending on results of interim follow-up exams T-SPOT :Neg Culture and stain AFB x 3 : Neg MTB PCR x2 : neg cryptococcus Ag, Histoplams mycelial Ab , Blastomyces ab : neg ; histoplasma yeast ab (not able to be done due to anticomplementary activity) -Cocci, Asp ag p -Fungitell + 144 (?aspergillosis vs m/l false positive) CT chest 06/15: Slightly smaller (6 cm diameter ) but mostly unchanged cavitary lesion in the right lung, previously thought to represent a cavitating inflammatory process. Lung abscess is certainly a possibility. Fairly extensive bilateral pulmonary parenchymal consolidation, slightly increased from previous exam of 06/05/2017. Likely a combination of pulmonary edema and pneumonia. Small right and trace left pleural effusion, new/increased from the previous study. CT 06/05: 7.8 x 5.3 x 6.6 cm dense opacity in the posterior inferior right upper lobe with a central cavitation. CRP 14 Influenza negative Coccidioidal ,Galactomannan : NEG ( PER LAB ) Transaminitis , improving after stopping rifampin /2 Hep C cirrhosis- no active Hep C as VL not detected -CT abd/p: Evidence of hepatic cirrhosis. Hepatosplenomegaly. evidence of generalized anasarca, with pleural fluid and generalized subcutaneous edema. Cholelithiasis, also previously reported. Possible diverticulosis. No evidence of diverticulitis US Abd : Cholelithiasis. There is gallbladder wall thickening, likely related to hemodynamic abnormalities Splenomegaly. Evidence of hepatic cirrhosis HIV : NEG Hep Panel B neg , C Ab : +ve , VL not detected leukopenia and TCP 2/2 splenomegaly Seizure disorder History of CVA History of pacemaker placement Hyperlipidemia Hypertension COPD/asthma End-stage renal disease, on hemodialysis Diabetes Anxiety Anemia Echo, ejection fraction 45% to 50%. PLAN: - Cont oral Clinda d# 8 ( till resolution of of abscess) ( abx d# 47 ) Continue empiric Ethambutol and Levaquin, Amikacin ( empiric TB AB Rx d# 37 as per TB control request, this was DW TB control , still insists to cont w TB regiment till final cultures are back ) 07/16 SP DC Zoysn d# 9 ( for SOB and CXR worsen , better coverage of anaerobes, PSA and Providencia ); 07/07 SP Dc Flagyl 07/06 SP Voriconazole ( low antonio for fungal infection , and in the setting of cirrhosis ) 07/05 SP Micafungin abx d#20 , Rifampin 600mg qd #10 07/01 SP Ceftriaxone #10 06/28 SP Amikacin #15 06/25 SP PO Voriconazole #3 06/20 SP Liposomal Ampho #8 06/17 SP IV Vancomycin #14, Meropenem #5 06/13 SP Zosyn d# 10 06/08 SP Zithromax D# 6 BAL fungal and AFB Cx : P - CMP called TB control they want to cont TB Meds regardless of AFB Cultures Neg x 3 ( 07/22 ) Subjective Constitutional: Denies: no symptoms, fever, chills, fatigue, anorexia, drenching sweats, other Allergies: Coded Allergies: IODINE AND IODIDE CONTAINING PRODUC (Verified Allergy, Mild, itching and pruritis, 06/25/17) Uncoded Allergies: CONTRAST/DYE (Allergy, Intermediate, PRURITIS AND ITCHING, 06/25/17) Subjective comfortable Objective Vital Signs Last 24 Hour Vital Signs Date Time Temp Pulse Resp B/P (MAP) Pulse Ox O2 Delivery O2 Flow Rate FiO2 07/24/17 09:00 67 108/59 07/24/17 09:00 108/59 07/24/17 08:00 98.7 67 19 108/59 97 Room Air 98.7 07/24/17 05:59 64 114/73 07/24/17 04:00 Room Air 07/24/17 04:00 98.4 64 22 114/73 97 98.4 07/23/17 23:12 Nasal Cannula 2.5 07/23/17 23:11 98.0 80 20 146/86 Nasal Cannula 2.5 98.0 07/23/17 23:09 80 146/86 07/23/17 23:09 146/86 07/23/17 23:08 80 146/86 07/23/17 20:22 93 Nasal Cannula 2.0 28 07/23/17 20:22 Nasal Cannula 2.0 28 07/23/17 20:22 78 20 Nasal Cannula 2.0 28 07/23/17 20:00 98.3 77 22 149/91 95 98.3 07/23/17 20:00 Room Air 07/23/17 19:00 Nasal Cannula 2.5 07/23/17 19:00 98.4 78 18 127/80 93 Nasal Cannula 2.0 28 98.4 07/23/17 17:47 98.4 07/23/17 17:17 98.4 07/23/17 16:00 97.9 78 18 127/80 93 97.9 07/23/17 13:21 98.4 Height (Feet): 5 Height (Inches): 7.00 Weight (Pounds): 210 HEENT: atraumatic Respiratory/Chest: no respiratory distress Cardiovascular: regular rhythm Abdomen: soft, non tender Laboratory Tests Test 07/24/17 01:45 07/24/17 05:35 Random Amikacin Level 22.8 MG/L Sodium Level 141 MMOL/L (136-145) Potassium Level 4.4 MMOL/L (3.5-5.1) Chloride Level 100 MMOL/L (98-107) Carbon Dioxide Level 34 MMOL/L (21-32) H Anion Gap 7 mmol/L (5-15) Blood Urea Nitrogen 44 mg/dL (7-18) H Creatinine 9.7 MG/DL (0.55-1.30) H Estimat Glomerular Filtration Rate 6.8 mL/min (>60) Glucose Level 85 MG/DL (74-106) Calcium Level 9.1 MG/DL (8.5-10.1) Current Medications Medications (Trade) Dose Ordered Sig/Jose Route PRN Reason Start Time Stop Time Status Last Admin Dose Admin Alprazolam (Xanax) 2 mg DAILYPRN PRN ORAL For Anxiety 07/23/17 19:15 07/30/17 19:14 07/23/17 21:06 Amikacin Protocol (Amikacin pharmacy to dose) 1 ea DAILY PRN MISC Per rx protocol 07/16/17 09:00 08/03/17 15:14 Amikacin Sulfate 800 mg/Dextrose 113.2 ml @ 226.4 mls/ hr FRI-FRI-FRI IV 07/18/17 21:00 07/25/17 20:59 07/24/17 01:58 Apixaban (Eliquis) 2.5 mg Q12HR ORAL 07/16/17 09:00 08/15/17 08:59 07/24/17 09:14 Carisoprodol (Soma) 350 mg Q6H PRN ORAL Muscle Spasm 07/18/17 15:30 08/17/17 15:29 07/22/17 01:01 Chlorhexidine Gluconate (Mireille-Hex 2%) 1 applic DAILY@1999 TOPIC 07/15/17 20:00 08/02/17 19:59 07/23/17 23:06 Dextrose (Dextrose 50%) 25 ml STAT PRN IV HYPOGLYCEMIA 07/16/17 08:30 08/08/17 08:29 Diltiazem HCl (Cardizem) 60 mg Q8HR ORAL 07/22/17 22:00 08/21/17 21:59 07/24/17 05:59 Ethambutol HCl (Myambutol) 1,000 mg 3XW@2099 ORAL 07/23/17 21:00 08/22/17 20:59 07/23/17 23:11 Hydromorphone HCl (Dilaudid) 2 mg Q4H PRN IVP Severe Pain (Pain Scale 7-10) 07/23/17 21:30 07/30/17 21:29 07/24/17 10:00 Levofloxacin (Levaquin) 750 mg EVERY OTHER DAY@1999 ORAL 07/23/17 20:00 07/30/17 19:59 07/23/17 23:08 Lisinopril (Prinivil) 20 mg Q12HR ORAL 07/16/17 09:00 08/15/17 08:59 07/23/17 23:09 Metoprolol Tartrate (Lopressor) 100 mg Q12HR ORAL 07/15/17 21:00 08/10/17 20:59 07/23/17 23:08 Ondansetron HCl (Zofran) 4 mg Q6H PRN IVP Nausea & Vomiting 07/18/17 15:30 08/17/17 15:29 07/23/17 08:18 Cristofer Antunez MD Jul 24, 2017 10:07
--- NOTE | 2017-07-24 11:50 | General Progress Note ---
Assessment/Plan Assessment/Plan Assessment - gallstones - abnormal LFT / cirrhosis - Periodic N/V with abnormal GB ultrasound, ? possibly biliary colic - patient declined HIDA - Anemia, multifactorial - OB (+) Stool - patient declined EGD/Colon - ESRD/HD - DM - HTN - COPD - Cavitary lung disease - Thrombocytopenia - cirrhotic appearing liver on CT - Hepatitis C Ab (+)/ PCR (-) - Poor prognosis Recommendations - PO as tolerated - follow symptoms and exam - monitor LFT - avoid hepatotoxic meds - abx per ID Subjective Allergies: Coded Allergies: IODINE AND IODIDE CONTAINING PRODUC (Verified Allergy, Mild, itching and pruritis, 06/25/17) Uncoded Allergies: CONTRAST/DYE (Allergy, Intermediate, PRURITIS AND ITCHING, 06/25/17) Subjective above noted tolerating PO no vomiting no abd pain Objective Last 24 Hour Vital Signs Date Time Temp Pulse Resp B/P (MAP) Pulse Ox O2 Delivery O2 Flow Rate FiO2 07/24/17 09:00 67 108/59 07/24/17 09:00 108/59 07/24/17 08:18 94 Nasal Cannula 2.0 28 07/24/17 08:18 73 20 Nasal Cannula 2.0 28 07/24/17 08:18 Nasal Cannula 2.0 28 07/24/17 08:00 98.7 67 19 108/59 97 Room Air 98.7 07/24/17 05:59 64 114/73 07/24/17 04:00 Room Air 07/24/17 04:00 98.4 64 22 114/73 97 98.4 07/23/17 23:12 Nasal Cannula 2.5 07/23/17 23:11 98.0 80 20 146/86 Nasal Cannula 2.5 98.0 07/23/17 23:09 80 146/86 07/23/17 23:09 146/86 07/23/17 23:08 80 146/86 07/23/17 20:22 93 Nasal Cannula 2.0 28 07/23/17 20:22 Nasal Cannula 2.0 28 07/23/17 20:22 78 20 Nasal Cannula 2.0 28 07/23/17 20:00 98.3 77 22 149/91 95 98.3 07/23/17 20:00 Room Air 07/23/17 19:00 Nasal Cannula 2.5 07/23/17 19:00 98.4 78 18 127/80 93 Nasal Cannula 2.0 28 98.4 07/23/17 17:47 98.4 07/23/17 17:17 98.4 07/23/17 16:00 97.9 78 18 127/80 93 97.9 07/23/17 13:21 98.4 Intake and Output 07/23/17 07/24/17 19:00 07:00 Intake Total 800 ml 353.2 ml Balance 800 ml 353.2 ml Intake Oral 800 ml 240 ml IV Total 113.2 ml # Voids 2 2 # Bowel Movements 2 Laboratory Tests 07/24/17 01:45: Random Amikacin Level 22.8 07/24/17 05:35: Sodium Level 141, Potassium Level 4.4, Chloride Level 100, Carbon Dioxide Level 34H, Anion Gap 7, Blood Urea Nitrogen 44H, Creatinine 9.7H, Estimat Glomerular Filtration Rate 6.8, Glucose Level 85, Calcium Level 9.1 Height (Feet): 5 Height (Inches): 7.00 Weight (Pounds): 210 Objective WDWN AA Man NCAT supple CTA RRR Soft mildly distended, (+) trunk edema (++) leg edema PERCY JOYNER Jul 24, 2017 11:50
[2017-07-24] MEDS: Clindamycin 150mg cap ORAL SCH ×3 (11:55→23:50)
[2017-07-24 11:57] VITALS: BP 129/77
--- NOTE | 2017-07-24 14:43 | Nephrology Progress Note ---
Assessment/Plan Problem List: (1) ESRD (end stage renal disease) on dialysis (2) Shortness of breath (3) Anemia Assessment Anemia ESRD , missed HD on admission , admitted with high K and pulmonary edema Acute respiratory distress due to volume overload elevated troponin r/o ACS h/o COPD ? exacerbation HTN urgency Cardiomyopathy L AICD anemia of chronic kidney disease Hx of CVA Plan Plan: HD next 07/25- will care for high K with HD Kayexelate PRN Max UF Transfused Phos binders BP meds adjustment Optimize cardiac status per orders Subjective ROS Limited/Unobtainable: No Constitutional: Reports: malaise Objective Objective Last 24 Hour Vital Signs Date Time Temp Pulse Resp B/P (MAP) Pulse Ox O2 Delivery O2 Flow Rate FiO2 07/24/17 14:33 64 129/77 07/24/17 14:07 98.9 07/24/17 11:57 98.9 64 21 129/77 96 Nasal Cannula 2.0 98.9 07/24/17 09:00 67 108/59 07/24/17 09:00 108/59 07/24/17 08:18 94 Nasal Cannula 2.0 28 07/24/17 08:18 73 20 Nasal Cannula 2.0 28 07/24/17 08:18 Nasal Cannula 2.0 28 07/24/17 08:00 98.7 67 19 108/59 97 Room Air 98.7 07/24/17 05:59 64 114/73 07/24/17 04:00 Room Air 07/24/17 04:00 98.4 64 22 114/73 97 98.4 07/23/17 23:12 Nasal Cannula 2.5 07/23/17 23:11 98.0 80 20 146/86 Nasal Cannula 2.5 98.0 07/23/17 23:09 80 146/86 07/23/17 23:09 146/86 07/23/17 23:08 80 146/86 07/23/17 20:22 93 Nasal Cannula 2.0 28 07/23/17 20:22 Nasal Cannula 2.0 28 07/23/17 20:22 78 20 Nasal Cannula 2.0 28 07/23/17 20:00 98.3 77 22 149/91 95 98.3 07/23/17 20:00 Room Air 07/23/17 19:00 Nasal Cannula 2.5 07/23/17 19:00 98.4 78 18 127/80 93 Nasal Cannula 2.0 28 98.4 07/23/17 17:47 98.4 07/23/17 17:17 98.4 07/23/17 16:00 97.9 78 18 127/80 93 97.9 Intake and Output 07/23/17 07/24/17 19:00 07:00 Intake Total 800 ml 353.2 ml Balance 800 ml 353.2 ml Intake Oral 800 ml 240 ml IV Total 113.2 ml # Voids 2 2 # Bowel Movements 2 Laboratory Tests 07/24/17 01:45: Random Amikacin Level 22.8 07/24/17 05:35: Sodium Level 141, Potassium Level 4.4, Chloride Level 100, Carbon Dioxide Level 34H, Anion Gap 7, Blood Urea Nitrogen 44H, Creatinine 9.7H, Estimat Glomerular Filtration Rate 6.8, Glucose Level 85, Calcium Level 9.1 Height (Feet): 5 Height (Inches): 7.00 Weight (Pounds): 210 General Appearance: no apparent distress Respiratory/Chest: decreased breath sounds Abdomen: distended Objective no change LIAM MONTELONGO Jul 24, 2017 14:43
--- NOTE | 2017-07-24 15:55 | Pulmonology Progress Note ---
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 chaparro again, tb control insisting on TB medication although, cultures are negative continue current meds TB control insist on continuing TB meds Subjective ROS Limited/Unobtainable: No Interval Events: asymptomatic, wants to go home Allergies: Coded Allergies: IODINE AND IODIDE CONTAINING PRODUC (Verified Allergy, Mild, itching and pruritis, 06/25/17) Uncoded Allergies: CONTRAST/DYE (Allergy, Intermediate, PRURITIS AND ITCHING, 06/25/17) Objective Last 24 Hour Vital Signs Date Time Temp Pulse Resp B/P (MAP) Pulse Ox O2 Delivery O2 Flow Rate FiO2 07/24/17 14:33 64 129/77 07/24/17 14:07 98.9 07/24/17 11:57 98.9 64 21 129/77 96 Nasal Cannula 2.0 98.9 07/24/17 09:00 67 108/59 07/24/17 09:00 108/59 07/24/17 08:18 94 Nasal Cannula 2.0 28 07/24/17 08:18 73 20 Nasal Cannula 2.0 28 07/24/17 08:18 Nasal Cannula 2.0 28 07/24/17 08:00 98.7 67 19 108/59 97 Room Air 98.7 07/24/17 05:59 64 114/73 07/24/17 04:00 Room Air 07/24/17 04:00 98.4 64 22 114/73 97 98.4 07/23/17 23:12 Nasal Cannula 2.5 07/23/17 23:11 98.0 80 20 146/86 Nasal Cannula 2.5 98.0 07/23/17 23:09 80 146/86 07/23/17 23:09 146/86 07/23/17 23:08 80 146/86 07/23/17 20:22 93 Nasal Cannula 2.0 28 07/23/17 20:22 Nasal Cannula 2.0 28 07/23/17 20:22 78 20 Nasal Cannula 2.0 28 07/23/17 20:00 98.3 77 22 149/91 95 98.3 07/23/17 20:00 Room Air 07/23/17 19:00 Nasal Cannula 2.5 07/23/17 19:00 98.4 78 18 127/80 93 Nasal Cannula 2.0 28 98.4 07/23/17 17:47 98.4 07/23/17 17:17 98.4 07/23/17 16:00 97.9 78 18 127/80 93 97.9 Intake and Output 07/23/17 07/24/17 19:00 07:00 Intake Total 800 ml 353.2 ml Balance 800 ml 353.2 ml Intake Oral 800 ml 240 ml IV Total 113.2 ml # Voids 2 2 # Bowel Movements 2 Objective General Appearance: WD/WN HEENT: normocephalic, atraumatic, anicteric Respiratory/Chest: loud rhonchi Cardiovascular: normal peripheral pulses, normal rate, regular rhythm Abdomen: normal bowel sounds, soft, non tender, no organomegaly Genitourinary: normal external genitalia Extremities: no cyanosis Skin: no rash, no lesions 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, no motor/sensory deficits Lymphatic: no neck adenopathy, no groin adenopathy Laboratory Tests 07/24/17 01:45: Random Amikacin Level 22.8 07/24/17 05:35: Sodium Level 141, Potassium Level 4.4, Chloride Level 100, Carbon Dioxide Level 34H, Anion Gap 7, Blood Urea Nitrogen 44H, Creatinine 9.7H, Estimat Glomerular Filtration Rate 6.8, Glucose Level 85, Calcium Level 9.1 Current Medications Medications (Trade) Dose Ordered Sig/Jose Route PRN Reason Start Time Stop Time Status Last Admin Dose Admin Alprazolam (Xanax) 2 mg DAILYPRN PRN ORAL For Anxiety 07/23/17 19:15 07/30/17 19:14 07/23/17 21:06 Amikacin Protocol (Amikacin pharmacy to dose) 1 ea DAILY PRN MISC Per rx protocol 07/16/17 09:00 08/03/17 15:14 Amikacin Sulfate 500 mg/Dextrose 112 ml @ 224 mls/hr MON-WED-FRI IV 4/20/18 21:00 08/01/17 20:59 Apixaban (Eliquis) 2.5 mg Q12HR ORAL 07/16/17 09:00 08/15/17 08:59 07/24/17 09:14 Carisoprodol (Soma) 350 mg Q6H PRN ORAL Muscle Spasm 07/18/17 15:30 08/17/17 15:29 07/22/17 01:01 Chlorhexidine Gluconate (Mireille-Hex 2%) 1 applic DAILY@1999 TOPIC 07/15/17 20:00 08/02/17 19:59 07/23/17 23:06 Clindamycin HCl (Cleocin) 450 mg EVERY 6 HOURS ORAL 07/24/17 12:00 09/04/17 11:59 07/24/17 11:55 Dextrose (Dextrose 50%) 25 ml STAT PRN IV HYPOGLYCEMIA 07/16/17 08:30 08/08/17 08:29 Diltiazem HCl (Cardizem) 60 mg Q8HR ORAL 07/22/17 22:00 08/21/17 21:59 07/24/17 14:33 Ethambutol HCl (Myambutol) 1,000 mg 3XW@2099 ORAL 07/23/17 21:00 08/22/17 20:59 07/23/17 23:11 Hydromorphone HCl (Dilaudid) 2 mg Q4H PRN IVP Severe Pain (Pain Scale 7-10) 07/23/17 21:30 07/30/17 21:29 07/24/17 14:07 Levofloxacin (Levaquin) 750 mg EVERY OTHER DAY@1999 ORAL 07/23/17 20:00 07/30/17 19:59 07/23/17 23:08 Lisinopril (Prinivil) 20 mg Q12HR ORAL 07/16/17 09:00 08/15/17 08:59 07/23/17 23:09 Metoprolol Tartrate (Lopressor) 100 mg Q12HR ORAL 07/15/17 21:00 08/10/17 20:59 07/23/17 23:08 Ondansetron HCl (Zofran) 4 mg Q6H PRN IVP Nausea & Vomiting 07/18/17 15:30 08/17/17 15:29 07/23/17 08:18 Christine Morgan MD Jul 24, 2017 15:55
[2017-07-24 16:00] VITALS: BP 132/75
--- NOTE | 2017-07-24 18:09 | Internal Med Progress Note ---
Subjective Date of Service: Jul 24, 2017 Physician Name Zoey Pires Attending Physician Chaitanya Weinstein MD Current Medications Medications (Trade) Dose Ordered Sig/Jose Route PRN Reason Start Time Stop Time Status Last Admin Dose Admin Alprazolam (Xanax) 2 mg DAILYPRN PRN ORAL For Anxiety 07/23/17 19:15 07/30/17 19:14 07/23/17 21:06 Amikacin Protocol (Amikacin pharmacy to dose) 1 ea DAILY PRN MISC Per rx protocol 07/16/17 09:00 08/03/17 15:14 Amikacin Sulfate 500 mg/Dextrose 112 ml @ 224 mls/hr MON-FRI-FRI IV 07/25/17 21:00 08/01/17 20:59 Apixaban (Eliquis) 2.5 mg Q12HR ORAL 07/16/17 09:00 08/15/17 08:59 07/24/17 09:14 Carisoprodol (Soma) 350 mg Q6H PRN ORAL Muscle Spasm 07/18/17 15:30 08/17/17 15:29 07/24/17 16:59 Chlorhexidine Gluconate (Mireille-Hex 2%) 1 applic DAILY@1999 TOPIC 07/15/17 20:00 08/02/17 19:59 07/23/17 23:06 Clindamycin HCl (Cleocin) 450 mg EVERY 6 HOURS ORAL 07/24/17 12:00 09/04/17 11:59 07/24/17 18:00 Dextrose (Dextrose 50%) 25 ml STAT PRN IV HYPOGLYCEMIA 07/16/17 08:30 08/08/17 08:29 Diltiazem HCl (Cardizem) 60 mg Q8HR ORAL 07/22/17 22:00 08/21/17 21:59 07/24/17 14:33 Ethambutol HCl (Myambutol) 1,000 mg 3XW@2100 ORAL 07/23/17 21:00 08/22/17 20:59 07/23/17 23:11 Hydromorphone HCl (Dilaudid) 2 mg Q4H PRN IVP Severe Pain (Pain Scale 7-10) 07/23/17 21:30 07/30/17 21:29 07/24/17 14:07 Levofloxacin (Levaquin) 750 mg EVERY OTHER DAY@2000 ORAL 07/23/17 20:00 07/30/17 19:59 07/23/17 23:08 Lisinopril (Prinivil) 20 mg Q12HR ORAL 07/16/17 09:00 08/15/17 08:59 07/23/17 23:09 Metoprolol Tartrate (Lopressor) 100 mg Q12HR ORAL 07/15/17 21:00 08/10/17 20:59 07/23/17 23:08 Ondansetron HCl (Zofran) 4 mg Q6H PRN IVP Nausea & Vomiting 07/18/17 15:30 08/17/17 15:29 07/23/17 08:18 Allergies: Coded Allergies: IODINE AND IODIDE CONTAINING PRODUC (Verified Allergy, Mild, itching and pruritis, 06/25/17) Uncoded Allergies: CONTRAST/DYE (Allergy, Intermediate, PRURITIS AND ITCHING, 06/25/17) ROS Limited/Unobtainable: No Constitutional: Reports: no symptoms HEENT: Reports: no symptoms Cardiovascular: Reports: no symptoms Respiratory: Reports: no symptoms Gastrointestinal/Abdominal: Reports: no symptoms Genitourinary: Reports: no symptoms Neurologic/Psychiatric: Reports: no symptoms Subjective 57 YO M admitted with chest pain and shortness of breath. Now pneumonia and candelaria heart failure. Back on nasal canula. Cover for Int Med-Dr Weinstein. Now atrial flutter Objective Last Vital Signs Date Time Temp Pulse Resp B/P (MAP) Pulse Ox O2 Delivery O2 Flow Rate FiO2 07/24/17 16:00 97.6 66 18 132/75 95 Nasal Cannula 2.0 97.6 07/24/17 08:18 28 Laboratory Tests Test 07/24/17 01:45 07/24/17 05:35 Random Amikacin Level 22.8 MG/L Sodium Level 141 MMOL/L (136-145) Potassium Level 4.4 MMOL/L (3.5-5.1) Chloride Level 100 MMOL/L (98-107) Carbon Dioxide Level 34 MMOL/L (21-32) H Anion Gap 7 mmol/L (5-15) Blood Urea Nitrogen 44 mg/dL (7-18) H Creatinine 9.7 MG/DL (0.55-1.30) H Estimat Glomerular Filtration Rate 6.8 mL/min (>60) Glucose Level 85 MG/DL (74-106) Calcium Level 9.1 MG/DL (8.5-10.1) Intake and Output 07/23/17 07/24/17 19:00 07:00 Intake Total 800 ml 353.2 ml Balance 800 ml 353.2 ml Intake Oral 800 ml 240 ml IV Total 113.2 ml # Voids 2 2 # Bowel Movements 2 Objective General Appearance: WD/WN, alert, moderate distress EENT: PERRL/EOMI, normal ENT inspection Neck: non-tender, normal alignment, supple, normal inspection Cardiovascular: Tachycardia; normal peripheral pulses, normal rate, regular rhythm, no gallop/murmur, no JVD Respiratory/Chest: Nasal canula; respiratory distress, crackles/rales, rhonchi - bilaterally, expiratory wheezing Abdomen: normal bowel sounds, non tender, soft, no organomegaly, no mass Extremities: normal range of motion 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 (2) Respiratory failure Assessment & Plan: CHF and Pneumonia. Currently on nasal canula. See pulmonay note. (3) Pleuritic chest pain (4) Hemoptysis Assessment & Plan: Due to pneumonia (5) Pneumonia Assessment & Plan: Providencia and pseudamonas. RUL. AFB cultures negative- see ID consult. ?D/C ethambutol, amikacin, levaquin and clindamycin? (6) Shortness of breath (7) ESRD (end stage renal disease) on dialysis Assessment & Plan: See nephrology note. Next Hemodialysis 07/23/17 per nephrology (8) Hyperkalemia Assessment & Plan: Due to renal failure. Hemodialysis 06/13/17 per nephrology (9) COPD (chronic obstructive pulmonary disease) (10) HTN (hypertension) Assessment & Plan: Continue coreg and lisinopril. (11) CHF (congestive heart failure) (12) Elevated troponin Assessment & Plan: ?due to renal failure? See cardiology note. (13) Intractable abdominal pain Assessment & Plan: See surgery note (14) Conjunctivitis Assessment & Plan: start tobramycin (15) Diarrhea Assessment & Plan: C. Diff Assessment/Plan Discharge planning - intermediate fac ZOEY PIRES Jul 24, 2017 18:09
[2017-07-24 20:00] VITALS: BP 120/74
[2017-07-24] MEDS: Dyna-Hex 2% Top Sol 2oz TOPIC SCH (20:47)
[2017-07-24] MEDS: ALPRAZolam 0.5mg tab ORAL PRN (22:32)
--- NOTE | 2017-07-24 23:45 | General Progress Note ---
Assessment/Plan Assessment/Plan #. Anemia secondary to chronic disease. --> Hemoglobin levels have been stable. No blood transfusion required at this time. --> S/P abd CAT scan revealing evidence of hepatic cirrhosis. --> Continue to closely monitor and trend cbc daily. --> Anemia workup completed and reviewed. Iron 42, TIBC 180, Ferritin 593, B12 876. --> Ferritin is >500, hgb goal is >7 --> Anemia w/u has been reviewed --> ++Occult blood. Consider GI Services and Recs. #. Left leg dvt --> acute onset, will need to review final duplex results --> on apixaban daily x 3 months, H/H has been stable. INR improved. --> okay to change to different anticoagulant if renal clearance an issue --> If h/h downtrends below 7.5, consider ivc filter placement. --> Hemoglobin currently >7.5 #. Thrombocytopenia. --> Hepatitis C ab ++, PCR - --> Monitor platelet level. Transfuse if platelet count <20k --> Levels remain low. # Hepatosplenomegaly. Ascites. There is also evidence of generalized anasarca, with pleural fluid and generalized subcutaneous edema --> Abd pain improved on pain management --> Refer to surgery note. #. Anemia of kidney disease --> HD as needed per nephrology team --> Monitor closely. --> Does not require iron at this time #. Generalized body ache related to fluid overload. #. End-stage renal disease, on hemodialysis as needed --> On hemodialysis #. Respiratory failure due to CHF and pneumonia. --> Providencia and pseudomonas. --> On vancomycin and ethambutol per ID. --> Chest pain improved at this time, on pain management. #. Shortness of breath. Due to underlying pneumonia. #. Atrial flutter with rapid ventricular response. On metoprolol and diltiazem. #. Conjunctivitis. Begin tobramycin. On anti TB treatment. On Amikacin and ethambutol. Continue telemetry. Subjective Date patient seen: Jul 24, 2017 Constitutional: Denies: no symptoms, chills, diaphoresis, fever, malaise, weakness, other HEENT: Denies: no symptoms, eye pain, blurred vision, tearing, double vision, ear pain, ear discharge, nose pain, nose congestion, throat pain, throat swelling, mouth pain, mouth swelling, other Cardiovascular: Denies: no symptoms, chest pain, edema, irregular heart rate, lightheadedness, palpitations, syncope, other Respiratory: Denies: no symptoms, cough, orthopnea, shortness of breath, SOB with excertion, SOB at rest, sputum, stridor, wheezing, other Gastrointestinal/Abdominal: Denies: no symptoms, abdomen distended, abdominal pain, black stools, tarry stools, blood in stool, constipated, diarrhea, difficulty swallowing, nausea, poor appetite, poor fluid intake, rectal bleeding , vomiting, other Genitourinary: Denies: no symptoms, burning, discharge, frequency, flank pain, hematuria, incontinence, pain, urgency, other Neurologic/Psychiatric: Denies: no symptoms, anxiety, depressed, emotional problems, headache, numbness, paresthesia, pre-existing deficit, seizure, tingling, tremors, weakness, other Hematologic/Lymphatic: Reports: anemia Allergies: Coded Allergies: IODINE AND IODIDE CONTAINING PRODUC (Verified Allergy, Mild, itching and pruritis, 06/25/17) Uncoded Allergies: CONTRAST/DYE (Allergy, Intermediate, PRURITIS AND ITCHING, 06/25/17) Subjective Pending HD. On pain control. No fever. Objective Last 24 Hour Vital Signs Date Time Temp Pulse Resp B/P (MAP) Pulse Ox O2 Delivery O2 Flow Rate FiO2 07/24/17 22:27 73 125/81 07/24/17 20:46 68 120/74 07/24/17 20:46 120/74 07/24/17 20:01 Nasal Cannula 2.0 28 07/24/17 20:01 94 Nasal Cannula 2.0 28 07/24/17 20:01 73 20 Nasal Cannula 2.0 28 07/24/17 20:00 99.2 68 19 120/74 98 Room Air 99.2 07/24/17 16:00 97.6 66 18 132/75 95 Nasal Cannula 2.0 97.6 07/24/17 14:33 64 129/77 07/24/17 14:07 98.9 07/24/17 11:57 98.9 64 21 129/77 96 Nasal Cannula 2.0 98.9 07/24/17 09:00 67 108/59 07/24/17 09:00 108/59 07/24/17 08:18 94 Nasal Cannula 2.0 28 07/24/17 08:18 73 20 Nasal Cannula 2.0 28 07/24/17 08:18 Nasal Cannula 2.0 28 07/24/17 08:00 98.7 67 19 108/59 97 Room Air 98.7 07/24/17 05:59 64 114/73 07/24/17 04:00 Room Air 07/24/17 04:00 98.4 64 22 114/73 97 98.4 Intake and Output 07/23/17 07/24/17 19:00 07:00 Intake Total 800 ml 353.2 ml Balance 800 ml 353.2 ml Intake Oral 800 ml 240 ml IV Total 113.2 ml # Voids 2 2 # Bowel Movements 2 Laboratory Tests 07/24/17 01:45: Random Amikacin Level 22.8 07/24/17 05:35: Sodium Level 141, Potassium Level 4.4, Chloride Level 100, Carbon Dioxide Level 34H, Anion Gap 7, Blood Urea Nitrogen 44H, Creatinine 9.7H, Estimat Glomerular Filtration Rate 6.8, Glucose Level 85, Calcium Level 9.1 Height (Feet): 5 Height (Inches): 7.00 Weight (Pounds): 210 General Appearance: confused EENT: normal ENT inspection Cardiovascular: normal rate Respiratory/Chest: decreased breath sounds Abdomen: non tender, soft ZAK RUIZ Jul 24, 2017 23:45
[2017-07-25] VITALS (8 sets, daily range): BP systolic 104–144; BP diastolic 63–89
[2017-07-25] MEDS: dilTIAZem HCl 60mg tab ORAL SCH ×3 (06:00→23:27)
[2017-07-25 06:13] LABS: HEMATOCRIT 27.9 % (42.0-52.0); HEMOGLOBIN 8.5 G/DL (14.2-18.0); MEAN CORPUSCULAR VOLUME 102 FL (80-99); PLATELET COUNT 91 K/UL (150-450); RED BLOOD COUNT 2.73 M/UL (4.70-6.10); RED CELL DISTRIBUTION WIDTH 14.1 % (11.6-14.8); WHITE BLOOD COUNT 4.6 K/UL (4.8-10.8)
[2017-07-25] MEDS: Clindamycin 150mg cap ORAL SCH ×4 (06:18→23:17)
[2017-07-25 06:50] LABS: ALANINE AMINOTRANSFERASE 15 U/L (12-78); ALBUMIN 2.4 G/DL (3.4-5.0); ALBUMIN/GLOBULIN RATIO 0.5 (1.0-2.7); ALKALINE PHOSPHATASE 172 U/L (46-116); ANION GAP 7 mmol/L (5-15); ASPARTATE AMINO TRANSFERASE 27 U/L (15-37); BILIRUBIN,TOTAL 1.1 MG/DL (0.2-1.0); BLOOD UREA NITROGEN 55 mg/dL (7-18); CALCIUM 8.8 MG/DL (8.5-10.1); CARBON DIOXIDE 33 MMOL/L (21-32); CHLORIDE 99 MMOL/L (98-107); POTASSIUM 4.7 MMOL/L (3.5-5.1); SODIUM 139 MMOL/L (136-145)
[2017-07-25 06:55] LABS: BILIRUBIN,DIRECT 0.5 MG/DL (0.0-0.3)
--- NOTE | 2017-07-25 07:08 | Nephrology Progress Note ---
Assessment/Plan Problem List: (1) ESRD (end stage renal disease) on dialysis (2) Shortness of breath (3) Anemia Assessment Anemia ESRD , missed HD on admission , admitted with high K and pulmonary edema Acute respiratory distress due to volume overload elevated troponin r/o ACS h/o COPD ? exacerbation HTN urgency Cardiomyopathy L AICD anemia of chronic kidney disease Hx of CVA Plan Plan: HD next 07/25- will care for high K with HD Kayexelate PRN Max UF Transfused Phos binders BP meds adjustment Optimize cardiac status per orders Subjective ROS Limited/Unobtainable: No Constitutional: Reports: malaise Objective Objective Last 24 Hour Vital Signs Date Time Temp Pulse Resp B/P (MAP) Pulse Ox O2 Delivery O2 Flow Rate FiO2 07/25/17 06:00 68 108/63 07/25/17 04:00 Nasal Cannula 2.0 07/25/17 04:00 98.3 68 20 108/63 100 98.3 07/25/17 00:00 98.8 87 19 120/69 100 98.8 07/25/17 00:00 Nasal Cannula 2.0 07/24/17 22:27 73 125/81 07/24/17 20:46 68 120/74 07/24/17 20:46 120/74 07/24/17 20:01 Nasal Cannula 2.0 28 07/24/17 20:01 94 Nasal Cannula 2.0 28 07/24/17 20:01 73 20 Nasal Cannula 2.0 28 07/24/17 20:00 99.2 68 19 120/74 98 Room Air 99.2 07/24/17 20:00 Nasal Cannula 2.0 07/24/17 16:00 97.6 66 18 132/75 95 Nasal Cannula 2.0 97.6 07/24/17 14:33 64 129/77 07/24/17 14:07 98.9 07/24/17 11:57 98.9 64 21 129/77 96 Nasal Cannula 2.0 98.9 07/24/17 09:00 67 108/59 07/24/17 09:00 108/59 07/24/17 08:18 94 Nasal Cannula 2.0 28 07/24/17 08:18 73 20 Nasal Cannula 2.0 28 07/24/17 08:18 Nasal Cannula 2.0 28 4/19/18 08:00 98.7 67 19 108/59 97 Room Air 98.7 Intake and Output 07/24/17 07/25/17 19:00 07:00 Intake Total 1440 ml 250 ml Output Total 0 ml Balance 1440 ml 250 ml Intake Oral 1440 ml 250 ml Output Urine Total 0 ml # Voids 2 Laboratory Tests 07/25/17 05:50: White Blood Count 4.6L, Red Blood Count 2.73L, Hemoglobin 8.5L, Hematocrit 27.9L , Mean Corpuscular Volume 102H, Mean Corpuscular Hemoglobin 31.3H, Mean Corpuscular Hemoglobin Concent 30.6L, Red Cell Distribution Width 14.1, Platelet Count 91L, Mean Platelet Volume 8.4, Neutrophils (%) (Auto) , Lymphocytes (%) (Auto) , Monocytes (%) (Auto) , Eosinophils (%) (Auto) , Basophils (%) (Auto) , Neutrophils % (Manual) [Pending], Lymphocytes % (Manual) [Pending], Platelet Estimate [Pending], Platelet Morphology [Pending], Sodium Level 139, Potassium Level 4.7, Chloride Level 99, Carbon Dioxide Level 33H, Anion Gap 7, Blood Urea Nitrogen 55H, Creatinine 11.0H, Estimat Glomerular Filtration Rate 5.8, Glucose Level 92, Calcium Level 8.8, Total Bilirubin 1.1H, Direct Bilirubin 0.5H, Aspartate Amino Transf (AST/SGOT) 27, Alanine Aminotransferase (ALT/SGPT) 15, Alkaline Phosphatase 172H, Total Protein 7.0, Albumin 2.4L, Globulin 4.6, Albumin/Globulin Ratio 0.5L Height (Feet): 5 Height (Inches): 7.00 Weight (Pounds): 212 General Appearance: no apparent distress Objective no change LIAM MONTELONGO Jul 25, 2017 07:08
[2017-07-25] MEDS: Eliquis 2.5mg tablet ORAL SCH ×2 (09:29→21:13)
[2017-07-25] MEDS: Lisinopril 20mg tab ORAL SCH ×2 (09:30→22:04)
--- NOTE | 2017-07-25 10:36 | Infectious Diseases Prog Note ---
Assessment/Plan Assessment/Plan Cavitary PNA. SCx: Neg ( m/l necrotizing Pneum, vs anaerobic abscess, doubt TB or fungal ) ; improving - 07/09 SP BAL Cx( Abby and MOJGAN : Colonizers ) , Path : Neg for fungus and Malignancy - -CT 07/15 : The overall lesion appears smaller, measuring 6.3 cm AP by 3.6 cm transverse by 2.3 cm craniocaudad currently -CT chest 06/25: Since the prior study of 06/15/2017, and. From further reduction in size of previously demonstrated thick walled right upper lobe cavitary mass. This was previously thought to most likely represent a cavitary inflammatory mass, and the interim reduction in size certainly supports that. Much less likely a cavitary neoplasm, but follow-up to resolution is recommended. Markedly improved parenchymal disease bilaterally, since the previous study. Nonetheless , extensive atelectasis and groundglass consolidation persists. Persistent small right pleural effusion, smaller than on the prior study. Resolved left pleural effusion 6 mm nodular opacity in the right upper lobe, not evident previously but likely obscured by surrounding consolidated lung parenchyma. This should be followed up in 6 months to one year depending on results of interim follow-up exams T-SPOT :Neg Culture and stain AFB x 3 : Neg MTB PCR x2 : neg cryptococcus Ag, Histoplams mycelial Ab , Blastomyces ab : neg ; histoplasma yeast ab (not able to be done due to anticomplementary activity) -Cocci, Asp ag p -Fungitell + 144 (?aspergillosis vs m/l false positive) CT chest 06/15: Slightly smaller (6 cm diameter ) but mostly unchanged cavitary lesion in the right lung, previously thought to represent a cavitating inflammatory process. Lung abscess is certainly a possibility. Fairly extensive bilateral pulmonary parenchymal consolidation, slightly increased from previous exam of 06/05/2017. Likely a combination of pulmonary edema and pneumonia. Small right and trace left pleural effusion, new/increased from the previous study. CT 06/05: 7.8 x 5.3 x 6.6 cm dense opacity in the posterior inferior right upper lobe with a central cavitation. CRP 14 Influenza negative Coccidioidal ,Galactomannan : NEG ( PER LAB ) Transaminitis , improved after stopping rifampin 2/2 Hep C cirrhosis- no active Hep C as VL not detected -CT abd/p: Evidence of hepatic cirrhosis. Hepatosplenomegaly. evidence of generalized anasarca, with pleural fluid and generalized subcutaneous edema. Cholelithiasis, also previously reported. Possible diverticulosis. No evidence of diverticulitis US Abd : Cholelithiasis. There is gallbladder wall thickening, likely related to hemodynamic abnormalities Splenomegaly. Evidence of hepatic cirrhosis HIV : NEG Hep Panel B neg , C Ab : +ve , VL not detected leukopenia and TCP 2/2 splenomegaly Seizure disorder History of CVA History of pacemaker placement Hyperlipidemia Hypertension COPD/asthma End-stage renal disease, on hemodialysis Diabetes Anxiety Anemia Echo, ejection fraction 45% to 50%. PLAN: - Cont oral Clinda d# 9 ( till resolution of of abscess) ( abx d# 48 ) Continue Ethambutol and Levaquin, Amikacin ( empiric TB AB Rx d# 38 TB control they want to cont TB Meds regardless of AFB Cultures Neg x 3 (called : 07/22 ) ) 07/16 SP DC Zoysn d# 9 ( for SOB and CXR worsen , better coverage of anaerobes, PSA and Providencia ); 07/07 SP Dc Flagyl 07/06 SP Voriconazole ( low antonio for fungal infection , and in the setting of cirrhosis ) 07/05 SP Micafungin abx d#20 , Rifampin 600mg qd #10 07/01 SP Ceftriaxone #10 06/28 SP Amikacin #15 06/25 SP PO Voriconazole #3 06/20 SP Liposomal Ampho #8 06/17 SP IV Vancomycin #14, Meropenem #5 06/13 SP Zosyn d# 10 06/08 SP Zithromax D# 6 BAL fungal and AFB Cx : P - CMP Subjective Allergies: Coded Allergies: IODINE AND IODIDE CONTAINING PRODUC (Verified Allergy, Mild, itching and pruritis, 06/25/17) Uncoded Allergies: CONTRAST/DYE (Allergy, Intermediate, PRURITIS AND ITCHING, 06/25/17) Subjective comfortable Objective Vital Signs Last 24 Hour Vital Signs Date Time Temp Pulse Resp B/P (MAP) Pulse Ox O2 Delivery O2 Flow Rate FiO2 07/25/17 09:30 65 125/79 07/25/17 09:30 125/79 07/25/17 08:00 98.3 65 19 125/79 94 Nasal Cannula 2.0 98.3 07/25/17 06:00 68 108/63 07/25/17 04:00 Nasal Cannula 2.0 07/25/17 04:00 98.3 68 20 108/63 100 98.3 07/25/17 00:00 98.8 87 19 120/69 100 98.8 07/25/17 00:00 Nasal Cannula 2.0 07/24/17 22:27 73 125/81 07/24/17 20:46 68 120/74 07/24/17 20:46 120/74 07/24/17 20:01 Nasal Cannula 2.0 28 07/24/17 20:01 94 Nasal Cannula 2.0 28 07/24/17 20:01 73 20 Nasal Cannula 2.0 28 07/24/17 20:00 99.2 68 19 120/74 98 Room Air 99.2 07/24/17 20:00 Nasal Cannula 2.0 07/24/17 16:00 97.6 66 18 132/75 95 Nasal Cannula 2.0 97.6 07/24/17 14:33 64 129/77 07/24/17 14:07 98.9 07/24/17 11:57 98.9 64 21 129/77 96 Nasal Cannula 2.0 98.9 Height (Feet): 5 Height (Inches): 7.00 Weight (Pounds): 212 HEENT: atraumatic Respiratory/Chest: normal breath sounds Cardiovascular: regularly irregular Abdomen: soft, non tender Laboratory Tests Test 07/25/17 05:50 White Blood Count 4.6 K/UL (4.8-10.8) L Red Blood Count 2.73 M/UL (4.70-6.10) L Hemoglobin 8.5 G/DL (14.2-18.0) L Hematocrit 27.9 % (42.0-52.0) L Mean Corpuscular Volume 102 FL (80-99) H Mean Corpuscular Hemoglobin 31.3 PG (27.0-31.0) H Mean Corpuscular Hemoglobin Concent 30.6 G/DL (32.0-36.0) L Red Cell Distribution Width 14.1 % (11.6-14.8) Platelet Count 91 K/UL (150-450) L Mean Platelet Volume 8.4 FL (6.5-10.1) Neutrophils (%) (Auto) % (45.0-75.0) Lymphocytes (%) (Auto) % (20.0-45.0) Monocytes (%) (Auto) % (1.0-10.0) Eosinophils (%) (Auto) % (0.0-3.0) Basophils (%) (Auto) % (0.0-2.0) Differential Total Cells Counted 100 Neutrophils % (Manual) 49 % (45-75) Lymphocytes % (Manual) 27 % (20-45) Monocytes % (Manual) 15 % (1-10) H Eosinophils % (Manual) 9 % (0-3) H Basophils % (Manual) 0 % (0-2) Band Neutrophils 0 % (0-8) Platelet Estimate Decreased L Platelet Morphology Normal Hypochromasia 1+ Anisocytosis 1+ Macrocytosis 1+ Sodium Level 139 MMOL/L (136-145) Potassium Level 4.7 MMOL/L (3.5-5.1) Chloride Level 99 MMOL/L (98-107) Carbon Dioxide Level 33 MMOL/L (21-32) H Anion Gap 7 mmol/L (5-15) Blood Urea Nitrogen 55 mg/dL (7-18) H Creatinine 11.0 MG/DL (0.55-1.30) H Estimat Glomerular Filtration Rate 5.8 mL/min (>60) Glucose Level 92 MG/DL (74-106) Calcium Level 8.8 MG/DL (8.5-10.1) Total Bilirubin 1.1 MG/DL (0.2-1.0) H Direct Bilirubin 0.5 MG/DL (0.0-0.3) H Aspartate Amino Transf (AST/SGOT) 27 U/L (15-37) Alanine Aminotransferase (ALT/SGPT) 15 U/L (12-78) Alkaline Phosphatase 172 U/L (46-116) H Total Protein 7.0 G/DL (6.4-8.2) Albumin 2.4 G/DL (3.4-5.0) L Globulin 4.6 g/dL Albumin/Globulin Ratio 0.5 (1.0-2.7) L Current Medications Medications (Trade) Dose Ordered Sig/Jose Route PRN Reason Start Time Stop Time Status Last Admin Dose Admin Alprazolam (Xanax) 2 mg DAILYPRN PRN ORAL For Anxiety 07/23/17 19:15 07/30/17 19:14 07/24/17 22:32 Amikacin Protocol (Amikacin pharmacy to dose) 1 ea DAILY PRN MISC Per rx protocol 07/16/17 09:00 08/03/17 15:14 Amikacin Sulfate 500 mg/Dextrose 112 ml @ 224 mls/hr MON-WED-FRI IV 07/25/17 21:00 08/01/17 20:59 Apixaban (Eliquis) 2.5 mg Q12HR ORAL 07/16/17 09:00 08/15/17 08:59 07/25/17 09:29 Carisoprodol (Soma) 350 mg Q6H PRN ORAL Muscle Spasm 07/18/17 15:30 08/17/17 15:29 07/24/17 16:59 Chlorhexidine Gluconate (Mireille-Hex 2%) 1 applic DAILY@1999 TOPIC 07/15/17 20:00 08/02/17 19:59 07/24/17 20:47 Clindamycin HCl (Cleocin) 450 mg EVERY 6 HOURS ORAL 07/24/17 12:00 09/04/17 11:59 07/25/17 06:18 Dextrose (Dextrose 50%) 25 ml STAT PRN IV HYPOGLYCEMIA 07/16/17 08:30 08/08/17 08:29 Diltiazem HCl (Cardizem) 60 mg Q8HR ORAL 07/22/17 22:00 08/21/17 21:59 07/24/17 22:27 Ethambutol HCl (Myambutol) 1,000 mg 3XW@2099 ORAL 07/23/17 21:00 08/22/17 20:59 07/23/17 23:11 Hydromorphone HCl (Dilaudid) 2 mg Q4H PRN IVP Severe Pain (Pain Scale 7-10) 07/23/17 21:30 07/30/17 21:29 07/25/17 06:32 Levofloxacin (Levaquin) 750 mg EVERY OTHER DAY@1999 ORAL 07/23/17 20:00 07/30/17 19:59 07/23/17 23:08 Lisinopril (Prinivil) 20 mg Q12HR ORAL 07/16/17 09:00 08/15/17 08:59 07/25/17 09:30 Metoprolol Tartrate (Lopressor) 100 mg Q12HR ORAL 07/15/17 21:00 08/10/17 20:59 07/25/17 09:30 Ondansetron HCl (Zofran) 4 mg Q6H PRN IVP Nausea & Vomiting 07/18/17 15:30 08/17/17 15:29 07/24/17 21:46 Cristofer Antunez MD Jul 25, 2017 10:36
--- NOTE | 2017-07-25 14:09 | Pulmonology Progress Note ---
Assessment/Plan Problems: (1) Respiratory failure (2) Pneumonia (3) Rapid atrial fibrillation (4) HTN (hypertension) (5) ESRD (end stage renal disease) on dialysis (6) Anemia Assessment/Plan feeling better CXR 07/21: RUL cavitary lesion not changed repeat cxr weekly c/o generalized pain slowly improving onNC HD by mattress filling machine tender prbc prn on anti TB meds wtih IV Amikacin, ethambutol d/w Dr. chaparro again, tb control insisting on TB medication although, cultures are negative continue current meds TB control insist on continuing TB meds Subjective ROS Limited/Unobtainable: No Interval Events: doing better Constitutional: Reports: no symptoms HEENT: Repors: no symptoms Allergies: Coded Allergies: IODINE AND IODIDE CONTAINING PRODUC (Verified Allergy, Mild, itching and pruritis, 06/25/17) Uncoded Allergies: CONTRAST/DYE (Allergy, Intermediate, PRURITIS AND ITCHING, 06/25/17) Objective Last 24 Hour Vital Signs Date Time Temp Pulse Resp B/P (MAP) Pulse Ox O2 Delivery O2 Flow Rate FiO2 07/25/17 12:00 98.0 63 20 144/79 94 Nasal Cannula 2.0 98.0 07/25/17 09:30 65 125/79 07/25/17 09:30 125/79 07/25/17 08:00 98.3 65 19 125/79 94 Nasal Cannula 2.0 98.3 07/25/17 06:00 68 108/63 07/25/17 04:00 Nasal Cannula 2.0 07/25/17 04:00 98.3 68 20 108/63 100 98.3 07/25/17 00:00 98.8 87 19 120/69 100 98.8 07/25/17 00:00 Nasal Cannula 2.0 07/24/17 22:27 73 125/81 07/24/17 20:46 68 120/74 07/24/17 20:46 120/74 07/24/17 20:01 Nasal Cannula 2.0 28 07/24/17 20:01 94 Nasal Cannula 2.0 28 07/24/17 20:01 73 20 Nasal Cannula 2.0 28 07/24/17 20:00 99.2 68 19 120/74 98 Room Air 99.2 07/24/17 20:00 Nasal Cannula 2.0 07/24/17 16:00 97.6 66 18 132/75 95 Nasal Cannula 2.0 97.6 07/24/17 14:33 64 129/77 Intake and Output 07/24/17 07/25/17 19:00 07:00 Intake Total 1440 ml 250 ml Output Total 0 ml Balance 1440 ml 250 ml Intake Oral 1440 ml 250 ml Output Urine Total 0 ml # Voids 2 Objective General Appearance: WD/WN HEENT: normocephalic, atraumatic, anicteric Respiratory/Chest: loud rhonchi Cardiovascular: normal peripheral pulses, normal rate, regular rhythm Abdomen: normal bowel sounds, soft, non tender, no organomegaly Genitourinary: normal external genitalia Extremities: no cyanosis Skin: no rash, no lesions Neurologic/Psychiatric: 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 specialist 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, no motor/sensory deficits Lymphatic: no neck adenopathy, no groin adenopathy Laboratory Tests 07/25/17 05:50: White Blood Count 4.6L, Red Blood Count 2.73L, Hemoglobin 8.5L, Hematocrit 27.9L , Mean Corpuscular Volume 102H, Mean Corpuscular Hemoglobin 31.3H, Mean Corpuscular Hemoglobin Concent 30.6L, Red Cell Distribution Width 14.1, Platelet Count 91L, Mean Platelet Volume 8.4, Neutrophils (%) (Auto) , Lymphocytes (%) (Auto) , Monocytes (%) (Auto) , Eosinophils (%) (Auto) , Basophils (%) (Auto) , Differential Total Cells Counted 100, Neutrophils % ( Manual) 49, Lymphocytes % (Manual) 27, Monocytes % (Manual) 15H, Eosinophils % ( Manual) 9H, Basophils % (Manual) 0, Band Neutrophils 0, Platelet Estimate DecreasedL, Platelet Morphology Normal, Hypochromasia 1+, Anisocytosis 1+, Macrocytosis 1+, Sodium Level 139, Potassium Level 4.7, Chloride Level 99, Carbon Dioxide Level 33H, Anion Gap 7, Blood Urea Nitrogen 55H, Creatinine 11.0H , Estimat Glomerular Filtration Rate 5.8, Glucose Level 92, Calcium Level 8.8, Total Bilirubin 1.1H, Direct Bilirubin 0.5H, Aspartate Amino Transf (AST/SGOT) 27, Alanine Aminotransferase (ALT/SGPT) 15, Alkaline Phosphatase 172H, Total Protein 7.0, Albumin 2.4L, Globulin 4.6, Albumin/Globulin Ratio 0.5L Current Medications Medications (Trade) Dose Ordered Sig/Jose Route PRN Reason Start Time Stop Time Status Last Admin Dose Admin Alprazolam (Xanax) 2 mg DAILYPRN PRN ORAL For Anxiety 07/23/17 19:15 07/30/17 19:14 07/24/17 22:32 Amikacin Protocol (Amikacin pharmacy to dose) 1 ea DAILY PRN MISC Per rx protocol 07/16/17 09:00 08/03/17 15:14 Amikacin Sulfate 500 mg/Dextrose 112 ml @ 224 mls/hr FRI-FRI-FRI IV 07/25/17 21:00 08/01/17 20:59 Apixaban (Eliquis) 2.5 mg Q12HR ORAL 07/16/17 09:00 08/15/17 08:59 07/25/17 09:29 Carisoprodol (Soma) 350 mg Q6H PRN ORAL Muscle Spasm 07/18/17 15:30 08/17/17 15:29 07/24/17 16:59 Chlorhexidine Gluconate (Mireille-Hex 2%) 1 applic DAILY@2000 TOPIC 07/15/17 20:00 08/02/17 19:59 07/24/17 20:47 Clindamycin HCl (Cleocin) 450 mg EVERY 6 HOURS ORAL 07/24/17 12:00 09/04/17 11:59 07/25/17 13:06 Dextrose (Dextrose 50%) 25 ml STAT PRN IV HYPOGLYCEMIA 07/16/17 08:30 08/08/17 08:29 Diltiazem HCl (Cardizem) 60 mg Q8HR ORAL 07/22/17 22:00 08/21/17 21:59 07/24/17 22:27 Ethambutol HCl (Myambutol) 1,000 mg 3XW@2100 ORAL 07/23/17 21:00 08/22/17 20:59 07/23/17 23:11 Hydromorphone HCl (Dilaudid) 2 mg Q4H PRN IVP Severe Pain (Pain Scale 7-10) 07/23/17 21:30 07/30/17 21:29 07/25/17 10:37 Levofloxacin (Levaquin) 750 mg EVERY OTHER DAY@1999 ORAL 07/23/17 20:00 07/30/17 19:59 07/23/17 23:08 Lisinopril (Prinivil) 20 mg Q12HR ORAL 07/16/17 09:00 08/15/17 08:59 07/25/17 09:30 Metoprolol Tartrate (Lopressor) 100 mg Q12HR ORAL 07/15/17 21:00 08/10/17 20:59 07/25/17 09:30 Ondansetron HCl (Zofran) 4 mg Q6H PRN IVP Nausea & Vomiting 07/18/17 15:30 08/17/17 15:29 07/24/17 21:46 Christine Morgan MD Jul 25, 2017 14:09
--- NOTE | 2017-07-25 17:54 | Internal Med Progress Note ---
Subjective Date of Service: Jul 25, 2017 Physician Name Zoey Pires Attending Physician Chaitanya Weinstein MD Current Medications Medications (Trade) Dose Ordered Sig/Jose Route PRN Reason Start Time Stop Time Status Last Admin Dose Admin Alprazolam (Xanax) 2 mg DAILYPRN PRN ORAL For Anxiety 07/23/17 19:15 07/30/17 19:14 07/24/17 22:32 Amikacin Protocol (Amikacin pharmacy to dose) 1 ea DAILY PRN MISC Per rx protocol 07/16/17 09:00 08/03/17 15:14 Amikacin Sulfate 500 mg/Dextrose 112 ml @ 224 mls/hr MON-FRI-FRI IV 07/25/17 21:00 08/01/17 20:59 Apixaban (Eliquis) 2.5 mg Q12HR ORAL 07/16/17 09:00 08/15/17 08:59 07/25/17 09:29 Carisoprodol (Soma) 350 mg Q6H PRN ORAL Muscle Spasm 07/18/17 15:30 08/17/17 15:29 07/24/17 16:59 Chlorhexidine Gluconate (Mireille-Hex 2%) 1 applic DAILY@1999 TOPIC 07/15/17 20:00 08/02/17 19:59 07/24/17 20:47 Clindamycin HCl (Cleocin) 450 mg EVERY 6 HOURS ORAL 07/24/17 12:00 09/04/17 11:59 07/25/17 13:06 Dextrose (Dextrose 50%) 25 ml STAT PRN IV HYPOGLYCEMIA 07/16/17 08:30 08/08/17 08:29 Diltiazem HCl (Cardizem) 60 mg Q8HR ORAL 07/22/17 22:00 08/21/17 21:59 07/25/17 15:04 Ethambutol HCl (Myambutol) 1,000 mg 3XW@2100 ORAL 07/23/17 21:00 08/22/17 20:59 07/23/17 23:11 Hydromorphone HCl (Dilaudid) 2 mg Q4H PRN IVP Severe Pain (Pain Scale 7-10) 07/23/17 21:30 07/30/17 21:29 07/25/17 15:05 Levofloxacin (Levaquin) 750 mg EVERY OTHER DAY@1999 ORAL 07/23/17 20:00 07/30/17 19:59 07/23/17 23:08 Lisinopril (Prinivil) 20 mg Q12HR ORAL 07/16/17 09:00 08/15/17 08:59 07/25/17 09:30 Metoprolol Tartrate (Lopressor) 100 mg Q12HR ORAL 07/15/17 21:00 08/10/17 20:59 07/25/17 09:30 Ondansetron HCl (Zofran) 4 mg Q6H PRN IVP Nausea & Vomiting 07/18/17 15:30 08/17/17 15:29 07/24/17 21:46 Allergies: Coded Allergies: IODINE AND IODIDE CONTAINING PRODUC (Verified Allergy, Mild, itching and pruritis, 06/25/17) Uncoded Allergies: CONTRAST/DYE (Allergy, Intermediate, PRURITIS AND ITCHING, 06/25/17) ROS Limited/Unobtainable: No Constitutional: Reports: no symptoms HEENT: Reports: no symptoms Cardiovascular: Reports: no symptoms Respiratory: Reports: no symptoms Gastrointestinal/Abdominal: Reports: no symptoms Genitourinary: Reports: no symptoms Neurologic/Psychiatric: Reports: no symptoms Subjective 57 YO M admitted with chest pain and shortness of breath. Now pneumonia and candelaria heart failure. Back on nasal canula. Cover for Int Med-Dr Weinstein. Now atrial flutter Objective Last Vital Signs Date Time Temp Pulse Resp B/P (MAP) Pulse Ox O2 Delivery O2 Flow Rate FiO2 07/25/17 16:00 98.2 76 20 131/89 94 Nasal Cannula 2.0 98.2 07/24/17 20:01 28 Laboratory Tests Test 07/25/17 05:50 White Blood Count 4.6 K/UL (4.8-10.8) L Red Blood Count 2.73 M/UL (4.70-6.10) L Hemoglobin 8.5 G/DL (14.2-18.0) L Hematocrit 27.9 % (42.0-52.0) L Mean Corpuscular Volume 102 FL (80-99) H Mean Corpuscular Hemoglobin 31.3 PG (27.0-31.0) H Mean Corpuscular Hemoglobin Concent 30.6 G/DL (32.0-36.0) L Red Cell Distribution Width 14.1 % (11.6-14.8) Platelet Count 91 K/UL (150-450) L Mean Platelet Volume 8.4 FL (6.5-10.1) Neutrophils (%) (Auto) % (45.0-75.0) Lymphocytes (%) (Auto) % (20.0-45.0) Monocytes (%) (Auto) % (1.0-10.0) Eosinophils (%) (Auto) % (0.0-3.0) Basophils (%) (Auto) % (0.0-2.0) Differential Total Cells Counted 100 Neutrophils % (Manual) 49 % (45-75) Lymphocytes % (Manual) 27 % (20-45) Monocytes % (Manual) 15 % (1-10) H Eosinophils % (Manual) 9 % (0-3) H Basophils % (Manual) 0 % (0-2) Band Neutrophils 0 % (0-8) Platelet Estimate Decreased L Platelet Morphology Normal Hypochromasia 1+ Anisocytosis 1+ Macrocytosis 1+ Sodium Level 139 MMOL/L (136-145) Potassium Level 4.7 MMOL/L (3.5-5.1) Chloride Level 99 MMOL/L (98-107) Carbon Dioxide Level 33 MMOL/L (21-32) H Anion Gap 7 mmol/L (5-15) Blood Urea Nitrogen 55 mg/dL (7-18) H Creatinine 11.0 MG/DL (0.55-1.30) H Estimat Glomerular Filtration Rate 5.8 mL/min (>60) Glucose Level 92 MG/DL (74-106) Calcium Level 8.8 MG/DL (8.5-10.1) Total Bilirubin 1.1 MG/DL (0.2-1.0) H Direct Bilirubin 0.5 MG/DL (0.0-0.3) H Aspartate Amino Transf (AST/SGOT) 27 U/L (15-37) Alanine Aminotransferase (ALT/SGPT) 15 U/L (12-78) Alkaline Phosphatase 172 U/L (46-116) H Total Protein 7.0 G/DL (6.4-8.2) Albumin 2.4 G/DL (3.4-5.0) L Globulin 4.6 g/dL Albumin/Globulin Ratio 0.5 (1.0-2.7) L Intake and Output 07/24/17 07/25/17 19:00 07:00 Intake Total 1440 ml 250 ml Output Total 0 ml Balance 1440 ml 250 ml Intake Oral 1440 ml 250 ml Output Urine Total 0 ml # Voids 2 Objective General Appearance: WD/WN, alert, moderate distress EENT: PERRL/EOMI, normal ENT inspection Neck: non-tender, normal alignment, supple, normal inspection Cardiovascular: Tachycardia; normal peripheral pulses, normal rate, regular rhythm, no gallop/murmur, no JVD Respiratory/Chest: Nasal canula; respiratory distress, crackles/rales, rhonchi - bilaterally, expiratory wheezing Abdomen: normal bowel sounds, non tender, soft, no organomegaly, no mass Extremities: normal range of motion Neurologic: case folder 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, no motor/sensory deficits Skin: normal pigmentation, warm/dry Assessment/Plan Problem List: (1) Atrial flutter with rapid ventricular response Assessment & Plan: D/C coreg; start metoprolol and IV diltiazem per cardiology consult. (2) Respiratory failure Assessment & Plan: CHF and Pneumonia. Currently on nasal canula. See pulmonay note. (3) Pleuritic chest pain (4) Hemoptysis Assessment & Plan: Due to pneumonia (5) Pneumonia Assessment & Plan: Providencia and pseudamonas. RUL. AFB cultures negative- see ID consult. ?D/C ethambutol, amikacin, levaquin and clindamycin? (6) Shortness of breath (7) ESRD (end stage renal disease) on dialysis Assessment & Plan: See nephrology note. Next Hemodialysis 07/23/17 per nephrology (8) Hyperkalemia Assessment & Plan: Due to renal failure. Hemodialysis 06/13/17 per nephrology (9) COPD (chronic obstructive pulmonary disease) (10) HTN (hypertension) Assessment & Plan: Continue coreg and lisinopril. (11) CHF (congestive heart failure) (12) Elevated troponin Assessment & Plan: ?due to renal failure? See cardiology note. (13) Intractable abdominal pain Assessment & Plan: See surgery note (14) Conjunctivitis Assessment & Plan: start tobramycin (15) Diarrhea Assessment & Plan: C. Diff Status: stable Assessment/Plan Discharge planning - [facility] fac ZOEY PIRES Jul 25, 2017 17:54
[2017-07-25] MEDS: Dyna-Hex 2% Top Sol 2oz TOPIC SCH (21:12)
--- NOTE | 2017-07-25 21:45 | General Progress Note ---
Assessment/Plan Assessment/Plan Assessment - gallstones - abnormal LFT / cirrhosis - Periodic N/V with abnormal GB ultrasound, ? possibly biliary colic - patient declined HIDA - Anemia, multifactorial - OB (+) Stool - patient declined EGD/Colon - ESRD/HD - DM - HTN - COPD - Cavitary lung disease - Thrombocytopenia - cirrhotic appearing liver on CT - Hepatitis C Ab (+)/ PCR (-) - Poor prognosis Recommendations - PO as tolerated - follow symptoms and exam - monitor LFT - avoid hepatotoxic meds - abx per ID Subjective Allergies: Coded Allergies: IODINE AND IODIDE CONTAINING PRODUC (Verified Allergy, Mild, itching and pruritis, 06/25/17) Uncoded Allergies: CONTRAST/DYE (Allergy, Intermediate, PRURITIS AND ITCHING, 06/25/17) Subjective above noted tolerating PO no vomiting no abd pain Objective Last 24 Hour Vital Signs Date Time Temp Pulse Resp B/P (MAP) Pulse Ox O2 Delivery O2 Flow Rate FiO2 07/25/17 20:00 98.6 66 20 107/66 95 Room Air 98.6 07/25/17 16:30 Nasal Cannula 2.0 07/25/17 16:30 98.6 69 20 104/64 Room Air 2.0 98.6 07/25/17 16:00 98.2 76 20 131/89 94 Nasal Cannula 2.0 98.2 07/25/17 15:04 64 143/70 07/25/17 12:00 98.0 63 20 144/79 94 Nasal Cannula 2.0 98.0 07/25/17 09:30 65 125/79 07/25/17 09:30 125/79 07/25/17 08:00 98.3 65 19 125/79 94 Nasal Cannula 2.0 98.3 07/25/17 06:00 68 108/63 07/25/17 04:00 Nasal Cannula 2.0 07/25/17 04:00 98.3 68 20 108/63 100 98.3 07/25/17 00:00 98.8 87 19 120/69 100 98.8 07/25/17 00:00 Nasal Cannula 2.0 07/24/17 22:27 73 125/81 Intake and Output 07/24/17 07/25/17 19:00 07:00 Intake Total 1440 ml 250 ml Output Total 0 ml Balance 1440 ml 250 ml Intake Oral 1440 ml 250 ml Output Urine Total 0 ml # Voids 2 Laboratory Tests 07/25/17 05:50: White Blood Count 4.6L, Red Blood Count 2.73L, Hemoglobin 8.5L, Hematocrit 27.9L , Mean Corpuscular Volume 102H, Mean Corpuscular Hemoglobin 31.3H, Mean Corpuscular Hemoglobin Concent 30.6L, Red Cell Distribution Width 14.1, Platelet Count 91L, Mean Platelet Volume 8.4, Neutrophils (%) (Auto) , Lymphocytes (%) (Auto) , Monocytes (%) (Auto) , Eosinophils (%) (Auto) , Basophils (%) (Auto) , Differential Total Cells Counted 100, Neutrophils % ( Manual) 49, Lymphocytes % (Manual) 27, Monocytes % (Manual) 15H, Eosinophils % ( Manual) 9H, Basophils % (Manual) 0, Band Neutrophils 0, Platelet Estimate DecreasedL, Platelet Morphology Normal, Hypochromasia 1+, Anisocytosis 1+, Macrocytosis 1+, Sodium Level 139, Potassium Level 4.7, Chloride Level 99, Carbon Dioxide Level 33H, Anion Gap 7, Blood Urea Nitrogen 55H, Creatinine 11.0H , Estimat Glomerular Filtration Rate 5.8, Glucose Level 92, Calcium Level 8.8, Total Bilirubin 1.1H, Direct Bilirubin 0.5H, Aspartate Amino Transf (AST/SGOT) 27, Alanine Aminotransferase (ALT/SGPT) 15, Alkaline Phosphatase 172H, Total Protein 7.0, Albumin 2.4L, Globulin 4.6, Albumin/Globulin Ratio 0.5L Height (Feet): 5 Height (Inches): 7.00 Weight (Pounds): 212 Objective WDWN AA Man NCAT supple CTA RRR Soft mildly distended, (+) trunk edema (++) leg edema PERCY JOYNER Jul 25, 2017 21:45
[2017-07-25] MEDS: Amikacin 500 MG in D5W 110 ML IV SCH (22:05)
--- NOTE | 2017-07-25 22:50 | General Progress Note ---
Assessment/Plan Assessment/Plan #. Anemia secondary to chronic disease. --> Hemoglobin levels have been stable. No blood transfusion required at this time. --> S/P abd CAT scan revealing evidence of hepatic cirrhosis. --> Continue to closely monitor and trend cbc daily. --> Anemia workup completed and reviewed. Iron 42, TIBC 180, Ferritin 593, B12 876. --> Ferritin is >500, hgb goal is >7 --> Anemia w/u has been reviewed --> ++Occult blood. Consider GI Services and Recs. #. Left leg dvt --> acute onset, will need to review final duplex results --> on apixaban daily x 3 months, H/H has been stable. INR improved. --> okay to change to different anticoagulant if renal clearance an issue --> If h/h downtrends below 7.5, consider ivc filter placement. --> Hemoglobin currently >7.5 #. Thrombocytopenia. --> Hepatitis C ab ++, PCR - --> Monitor platelet level. Transfuse if platelet count <20k --> Levels remain low. # Hepatosplenomegaly. Ascites. There is also evidence of generalized anasarca, with pleural fluid and generalized subcutaneous edema --> Abd pain improved on pain management --> Refer to surgery note. #. Anemia of kidney disease --> HD as needed per nephrology team --> Monitor closely. --> Does not require iron at this time #. Generalized body ache related to fluid overload. #. End-stage renal disease, on hemodialysis as needed --> On hemodialysis #. Respiratory failure due to CHF and pneumonia. --> Providencia and pseudomonas. --> On vancomycin and ethambutol per ID. --> Chest pain improved at this time, on pain management. #. Shortness of breath. Due to underlying pneumonia. #. Atrial flutter with rapid ventricular response. On metoprolol and diltiazem. #. Conjunctivitis. Begin tobramycin. On anti TB treatment. On Amikacin and ethambutol. Continue telemetry. Subjective Date patient seen: Jul 25, 2017 Constitutional: Denies: no symptoms, chills, diaphoresis, fever, malaise, weakness, other HEENT: Denies: no symptoms, eye pain, blurred vision, tearing, double vision, ear pain, ear discharge, nose pain, nose congestion, throat pain, throat swelling, mouth pain, mouth swelling, other Cardiovascular: Denies: no symptoms, chest pain, edema, irregular heart rate, lightheadedness, palpitations, syncope, other Respiratory: Denies: no symptoms, cough, orthopnea, shortness of breath, SOB with excertion, SOB at rest, sputum, stridor, wheezing, other Gastrointestinal/Abdominal: Denies: no symptoms, abdomen distended, abdominal pain, black stools, tarry stools, blood in stool, constipated, diarrhea, difficulty swallowing, nausea, poor appetite, poor fluid intake, rectal bleeding , vomiting, other Genitourinary: Denies: no symptoms, burning, discharge, frequency, flank pain, hematuria, incontinence, pain, urgency, other Neurologic/Psychiatric: Denies: no symptoms, anxiety, depressed, emotional problems, headache, numbness, paresthesia, pre-existing deficit, seizure, tingling, tremors, weakness, other Allergies: Coded Allergies: IODINE AND IODIDE CONTAINING PRODUC (Verified Allergy, Mild, itching and pruritis, 06/25/17) Uncoded Allergies: CONTRAST/DYE (Allergy, Intermediate, PRURITIS AND ITCHING, 06/25/17) Subjective On pain management. Confused. On HD. Objective Last 24 Hour Vital Signs Date Time Temp Pulse Resp B/P (MAP) Pulse Ox O2 Delivery O2 Flow Rate FiO2 07/25/17 22:12 Nasal Cannula 2.0 07/25/17 22:11 98.8 69 20 134/77 Nasal Cannula 2.0 98.8 07/25/17 22:04 123/70 07/25/17 22:03 72 123/70 07/25/17 20:00 98.6 66 20 107/66 95 Room Air 98.6 07/25/17 16:30 Nasal Cannula 2.0 07/25/17 16:30 98.6 69 20 104/64 Room Air 2.0 98.6 07/25/17 16:00 98.2 76 20 131/89 94 Nasal Cannula 2.0 98.2 07/25/17 15:04 64 143/70 07/25/17 12:00 98.0 63 20 144/79 94 Nasal Cannula 2.0 98.0 07/25/17 09:30 65 125/79 07/25/17 09:30 125/79 07/25/17 08:00 98.3 65 19 125/79 94 Nasal Cannula 2.0 98.3 07/25/17 06:00 68 108/63 07/25/17 04:00 Nasal Cannula 2.0 07/25/17 04:00 98.3 68 20 108/63 100 98.3 07/25/17 00:00 98.8 87 19 120/69 100 98.8 07/25/17 00:00 Nasal Cannula 2.0 Intake and Output 07/24/17 07/25/17 19:00 07:00 Intake Total 1440 ml 250 ml Output Total 0 ml Balance 1440 ml 250 ml Intake Oral 1440 ml 250 ml Output Urine Total 0 ml # Voids 2 Laboratory Tests 07/25/17 05:50: White Blood Count 4.6L, Red Blood Count 2.73L, Hemoglobin 8.5L, Hematocrit 27.9L , Mean Corpuscular Volume 102H, Mean Corpuscular Hemoglobin 31.3H, Mean Corpuscular Hemoglobin Concent 30.6L, Red Cell Distribution Width 14.1, Platelet Count 91L, Mean Platelet Volume 8.4, Neutrophils (%) (Auto) , Lymphocytes (%) (Auto) , Monocytes (%) (Auto) , Eosinophils (%) (Auto) , Basophils (%) (Auto) , Differential Total Cells Counted 100, Neutrophils % ( Manual) 49, Lymphocytes % (Manual) 27, Monocytes % (Manual) 15H, Eosinophils % ( Manual) 9H, Basophils % (Manual) 0, Band Neutrophils 0, Platelet Estimate DecreasedL, Platelet Morphology Normal, Hypochromasia 1+, Anisocytosis 1+, Macrocytosis 1+, Sodium Level 139, Potassium Level 4.7, Chloride Level 99, Carbon Dioxide Level 33H, Anion Gap 7, Blood Urea Nitrogen 55H, Creatinine 11.0H , Estimat Glomerular Filtration Rate 5.8, Glucose Level 92, Calcium Level 8.8, Total Bilirubin 1.1H, Direct Bilirubin 0.5H, Aspartate Amino Transf (AST/SGOT) 27, Alanine Aminotransferase (ALT/SGPT) 15, Alkaline Phosphatase 172H, Total Protein 7.0, Albumin 2.4L, Globulin 4.6, Albumin/Globulin Ratio 0.5L Height (Feet): 5 Height (Inches): 7.00 Weight (Pounds): 212 General Appearance: no apparent distress EENT: normal ENT inspection Cardiovascular: normal rate, regular rhythm Respiratory/Chest: lungs clear, normal breath sounds Abdomen: non tender, soft Edema: trace edema ZAK RUIZ Jul 25, 2017 22:50
[2017-07-25] MEDS: ALPRAZolam 0.5mg tab ORAL PRN (23:17)
[2017-07-26] VITALS: BP 123/78
[2017-07-26 04:00] VITALS: BP 124/74
[2017-07-26] MEDS: dilTIAZem HCl 60mg tab ORAL SCH ×3 (05:47→23:07)
[2017-07-26] MEDS: Clindamycin 150mg cap ORAL SCH ×3 (05:47→18:09)
[2017-07-26 06:42] LABS: ANION GAP 11 mmol/L (5-15); BLOOD UREA NITROGEN 46 mg/dL (7-18); CALCIUM 9.1 MG/DL (8.5-10.1); CARBON DIOXIDE 30 MMOL/L (21-32); CHLORIDE 98 MMOL/L (98-107); CREATININE 9.5 MG/DL (0.55-1.30); POTASSIUM 4.9 MMOL/L (3.5-5.1); SODIUM 139 MMOL/L (136-145)
[2017-07-26 06:43] LABS: HEMATOCRIT 28.2 % (42.0-52.0); MEAN CORPUSCULAR VOLUME 102 FL (80-99); PLATELET COUNT 82 K/UL (150-450); RED BLOOD COUNT 2.77 M/UL (4.70-6.10); RED CELL DISTRIBUTION WIDTH 13.7 % (11.6-14.8); WHITE BLOOD COUNT 4.5 K/UL (4.8-10.8)
[2017-07-26] MEDS: Eliquis 2.5mg tablet ORAL SCH ×2 (07:46→21:00)
[2017-07-26] MEDS: Lisinopril 20mg tab ORAL SCH ×2 (07:46→21:32)
[2017-07-26 08:00] VITALS: BP 107/66
--- NOTE | 2017-07-26 10:09 | Nephrology Progress Note ---
Assessment/Plan Problem List: (1) ESRD (end stage renal disease) on dialysis (2) Shortness of breath (3) Anemia Assessment Anemia ESRD , missed HD on admission , admitted with high K and pulmonary edema Acute respiratory distress due to volume overload elevated troponin r/o ACS h/o COPD ? exacerbation HTN urgency Cardiomyopathy L AICD anemia of chronic kidney disease Hx of CVA Plan Plan: HD last 07/25- will care for high K with HD Next HD 07/28 Kayexelate PRN Max UF Transfused Phos binders BP meds adjustment Optimize cardiac status per orders Subjective ROS Limited/Unobtainable: No Objective Objective Last 24 Hour Vital Signs Date Time Temp Pulse Resp B/P (MAP) Pulse Ox O2 Delivery O2 Flow Rate FiO2 07/26/17 08:00 97.7 64 20 107/66 90 97.7 07/26/17 07:46 65 124/74 07/26/17 07:46 124/74 07/26/17 05:47 65 124/74 07/26/17 04:00 98.5 65 20 124/74 93 98.5 07/26/17 00:00 97.2 65 20 123/78 94 Nasal Cannula 97.2 07/25/17 23:27 68 124/74 07/25/17 22:12 Nasal Cannula 2.0 07/25/17 22:11 98.8 69 20 134/77 Nasal Cannula 2.0 98.8 07/25/17 22:04 123/70 07/25/17 22:03 72 123/70 07/25/17 20:00 98.6 66 20 107/66 95 Room Air 98.6 07/25/17 16:30 Nasal Cannula 2.0 07/25/17 16:30 98.6 69 20 104/64 Room Air 2.0 98.6 07/25/17 16:00 98.2 76 20 131/89 94 Nasal Cannula 2.0 98.2 07/25/17 15:04 64 143/70 07/25/17 12:00 98.0 63 20 144/79 94 Nasal Cannula 2.0 98.0 Intake and Output 07/25/17 07/26/17 19:00 07:00 Intake Total 600 ml 574 ml Output Total 2321 ml Balance 600 ml -1747 ml Intake Oral 600 ml 350 ml IV Total 224 ml Output Urine Total 0 ml Hemodialysis UF 2321 ml # Voids 3 Laboratory Tests 07/26/17 05:55: White Blood Count 4.5L, Red Blood Count 2.77L, Hemoglobin 9.0L, Hematocrit 28.2L , Mean Corpuscular Volume 102H, Mean Corpuscular Hemoglobin 32.4H, Mean Corpuscular Hemoglobin Concent 31.9L, Red Cell Distribution Width 13.7, Platelet Count 82L, Mean Platelet Volume 8.3, Neutrophils (%) (Auto) , Lymphocytes (%) (Auto) , Monocytes (%) (Auto) , Eosinophils (%) (Auto) , Basophils (%) (Auto) , Neutrophils % (Manual) [Pending], Lymphocytes % (Manual) [Pending], Platelet Estimate [Pending], Platelet Morphology [Pending], Sodium Level 139, Potassium Level 4.9, Chloride Level 98, Carbon Dioxide Level 30, Anion Gap 11, Blood Urea Nitrogen 46H, Creatinine 9.5H, Estimat Glomerular Filtration Rate 6.9, Glucose Level 91, Calcium Level 9.1 Height (Feet): 5 Height (Inches): 7.00 Weight (Pounds): 214 General Appearance: no apparent distress Objective no change LIAM MONTELONGO Jul 26, 2017 10:09
--- NOTE | 2017-07-26 10:14 | Pulmonology Progress Note ---
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 chaparro again, tb control insisting on TB medication although, cultures are negative continue current meds TB control insist on continuing TB meds Subjective ROS Limited/Unobtainable: No Constitutional: Reports: no symptoms HEENT: Repors: no symptoms Allergies: Coded Allergies: IODINE AND IODIDE CONTAINING PRODUC (Verified Allergy, Mild, itching and pruritis, 06/25/17) Uncoded Allergies: CONTRAST/DYE (Allergy, Intermediate, PRURITIS AND ITCHING, 06/25/17) Objective Last 24 Hour Vital Signs Date Time Temp Pulse Resp B/P (MAP) Pulse Ox O2 Delivery O2 Flow Rate FiO2 07/26/17 08:00 97.7 64 20 107/66 90 97.7 07/26/17 07:46 65 124/74 07/26/17 07:46 124/74 07/26/17 05:47 65 124/74 07/26/17 04:00 98.5 65 20 124/74 93 98.5 07/26/17 00:00 97.2 65 20 123/78 94 Nasal Cannula 97.2 07/25/17 23:27 68 124/74 07/25/17 22:12 Nasal Cannula 2.0 07/25/17 22:11 98.8 69 20 134/77 Nasal Cannula 2.0 98.8 07/25/17 22:04 123/70 07/25/17 22:03 72 123/70 07/25/17 20:00 98.6 66 20 107/66 95 Room Air 98.6 07/25/17 16:30 Nasal Cannula 2.0 07/25/17 16:30 98.6 69 20 104/64 Room Air 2.0 98.6 07/25/17 16:00 98.2 76 20 131/89 94 Nasal Cannula 2.0 98.2 07/25/17 15:04 64 143/70 07/25/17 12:00 98.0 63 20 144/79 94 Nasal Cannula 2.0 98.0 Intake and Output 07/25/17 07/26/17 19:00 07:00 Intake Total 600 ml 574 ml Output Total 2321 ml Balance 600 ml -1747 ml Intake Oral 600 ml 350 ml IV Total 224 ml Output Urine Total 0 ml Hemodialysis UF 2321 ml # Voids 3 Objective General Appearance: WD/WN HEENT: normocephalic, atraumatic, anicteric Respiratory/Chest: loud rhonchi Cardiovascular: normal peripheral pulses, normal rate, regular rhythm Abdomen: normal bowel sounds, soft, non tender, no organomegaly Genitourinary: normal external genitalia Extremities: no cyanosis Skin: no rash, no lesions Neurologic/Psychiatric: acid tender 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, no motor/sensory deficits Lymphatic: no neck adenopathy, no groin adenopathy Laboratory Tests 07/26/17 05:55: White Blood Count 4.5L, Red Blood Count 2.77L, Hemoglobin 9.0L, Hematocrit 28.2L , Mean Corpuscular Volume 102H, Mean Corpuscular Hemoglobin 32.4H, Mean Corpuscular Hemoglobin Concent 31.9L, Red Cell Distribution Width 13.7, Platelet Count 82L, Mean Platelet Volume 8.3, Neutrophils (%) (Auto) , Lymphocytes (%) (Auto) , Monocytes (%) (Auto) , Eosinophils (%) (Auto) , Basophils (%) (Auto) , Neutrophils % (Manual) [Pending], Lymphocytes % (Manual) [Pending], Platelet Estimate [Pending], Platelet Morphology [Pending], Sodium Level 139, Potassium Level 4.9, Chloride Level 98, Carbon Dioxide Level 30, Anion Gap 11, Blood Urea Nitrogen 46H, Creatinine 9.5H, Estimat Glomerular Filtration Rate 6.9, Glucose Level 91, Calcium Level 9.1 Current Medications Medications (Trade) Dose Ordered Sig/Jose Route PRN Reason Start Time Stop Time Status Last Admin Dose Admin Alprazolam (Xanax) 2 mg DAILYPRN PRN ORAL For Anxiety 07/23/17 19:15 07/30/17 19:14 07/25/17 23:17 Amikacin Protocol (Amikacin pharmacy to dose) 1 ea DAILY PRN MISC Per rx protocol 07/16/17 09:00 08/03/17 15:14 Amikacin Sulfate 500 mg/Dextrose 112 ml @ 224 mls/hr FRI-FRI-FRI IV 07/25/17 21:00 08/01/17 20:59 07/25/17 22:05 Apixaban (Eliquis) 2.5 mg Q12HR ORAL 07/16/17 09:00 08/15/17 08:59 07/26/17 07:46 Carisoprodol (Soma) 350 mg Q6H PRN ORAL Muscle Spasm 07/18/17 15:30 08/17/17 15:29 07/24/17 16:59 Chlorhexidine Gluconate (Mireille-Hex 2%) 1 applic DAILY@1999 TOPIC 07/15/17 20:00 08/02/17 19:59 07/25/17 21:12 Clindamycin HCl (Cleocin) 450 mg EVERY 6 HOURS ORAL 07/24/17 12:00 09/04/17 11:59 07/26/17 05:47 Dextrose (Dextrose 50%) 25 ml STAT PRN IV HYPOGLYCEMIA 07/16/17 08:30 08/08/17 08:29 Diltiazem HCl (Cardizem) 60 mg Q8HR ORAL 07/22/17 22:00 08/21/17 21:59 07/26/17 05:47 Ethambutol HCl (Myambutol) 1,000 mg 3XW@2099 ORAL 07/23/17 21:00 08/22/17 20:59 07/25/17 21:14 Hydromorphone HCl (Dilaudid) 2 mg Q4H PRN IVP Severe Pain (Pain Scale 7-10) 07/23/17 21:30 07/30/17 21:29 07/26/17 07:47 Levofloxacin (Levaquin) 750 mg EVERY OTHER DAY@1999 ORAL 07/23/17 20:00 07/30/17 19:59 07/25/17 21:12 Lisinopril (Prinivil) 20 mg Q12HR ORAL 07/16/17 09:00 08/15/17 08:59 07/26/17 07:46 Metoprolol Tartrate (Lopressor) 100 mg Q12HR ORAL 07/15/17 21:00 08/10/17 20:59 07/26/17 07:46 Ondansetron HCl (Zofran) 4 mg Q6H PRN IVP Nausea & Vomiting 07/18/17 15:30 08/17/17 15:29 07/24/17 21:46 Christine Morgan MD Jul 26, 2017 10:14
--- NOTE | 2017-07-26 11:52 | Infectious Diseases Prog Note ---
Assessment/Plan Assessment/Plan Cavitary PNA. SCx: Neg ( m/l anaerobic abscess than necrotizing Pneum , doubt TB or fungal ) ; improving - 07/09 SP BAL Cx( Abby and MOJGAN : Colonizers ) , Path : Neg for fungus and Malignancy - -CT 07/15 : The overall lesion appears smaller, measuring 6.3 cm AP by 3.6 cm transverse by 2.3 cm craniocaudad currently -CT chest 06/25: Since the prior study of 06/15/2017, and. From further reduction in size of previously demonstrated thick walled right upper lobe cavitary mass. This was previously thought to most likely represent a cavitary inflammatory mass, and the interim reduction in size certainly supports that. Much less likely a cavitary neoplasm, but follow-up to resolution is recommended. Markedly improved parenchymal disease bilaterally, since the previous study. Nonetheless , extensive atelectasis and groundglass consolidation persists. Persistent small right pleural effusion, smaller than on the prior study. Resolved left pleural effusion 6 mm nodular opacity in the right upper lobe, not evident previously but likely obscured by surrounding consolidated lung parenchyma. This should be followed up in 6 months to one year depending on results of interim follow-up exams T-SPOT :Neg Culture and stain AFB x 3 : Neg MTB PCR x2 : neg cryptococcus Ag, Histoplams mycelial Ab , Blastomyces ab : neg ; histoplasma yeast ab (not able to be done due to anticomplementary activity) -Cocci, Asp ag p -Fungitell + 144 (?aspergillosis vs m/l false positive) CT chest 06/15: Slightly smaller (6 cm diameter ) but mostly unchanged cavitary lesion in the right lung, previously thought to represent a cavitating inflammatory process. Lung abscess is certainly a possibility. Fairly extensive bilateral pulmonary parenchymal consolidation, slightly increased from previous exam of 06/05/2017. Likely a combination of pulmonary edema and pneumonia. Small right and trace left pleural effusion, new/increased from the previous study. CT 06/05: 7.8 x 5.3 x 6.6 cm dense opacity in the posterior inferior right upper lobe with a central cavitation. CRP 14 Influenza negative Coccidioidal ,Galactomannan : NEG ( PER LAB ) Transaminitis , improved after stopping rifampin 2/2 Hep C cirrhosis- no active Hep C as VL not detected -CT abd/p: Evidence of hepatic cirrhosis. Hepatosplenomegaly. evidence of generalized anasarca, with pleural fluid and generalized subcutaneous edema. Cholelithiasis, also previously reported. Possible diverticulosis. No evidence of diverticulitis US Abd : Cholelithiasis. There is gallbladder wall thickening, likely related to hemodynamic abnormalities Splenomegaly. Evidence of hepatic cirrhosis HIV : NEG Hep Panel B neg , C Ab : +ve , VL not detected leukopenia and TCP 2/2 splenomegaly Seizure disorder History of CVA History of pacemaker placement Hyperlipidemia Hypertension COPD/asthma End-stage renal disease, on hemodialysis Diabetes Anxiety Anemia Echo, ejection fraction 45% to 50%. PLAN: - Cont oral Clinda d# 10 ( till resolution/ stabilization of abscess) ( abx d# 49 ) Continue Ethambutol and Levaquin, Amikacin ( empiric TB AB Rx d# 39 TB control they want to cont TB Meds regardless of AFB Cultures Neg x 3 (called : 07/22 ) ) 07/16 SP DC Zoysn d# 9 ( for SOB and CXR worsen , better coverage of anaerobes, PSA and Providencia ); 07/07 SP Dc Flagyl 07/06 SP Voriconazole ( low antonio for fungal infection , and in the setting of cirrhosis ) 07/05 SP Micafungin abx d#20 , Rifampin 600mg qd #10 07/01 SP Ceftriaxone #10 06/28 SP Amikacin #15 06/25 SP PO Voriconazole #3 06/20 SP Liposomal Ampho #8 06/17 SP IV Vancomycin #14, Meropenem #5 06/13 SP Zosyn d# 10 06/08 SP Zithromax D# 6 BAL fungal and AFB Cx : P - CMP Subjective Allergies: Coded Allergies: IODINE AND IODIDE CONTAINING PRODUC (Verified Allergy, Mild, itching and pruritis, 06/25/17) Uncoded Allergies: CONTRAST/DYE (Allergy, Intermediate, PRURITIS AND ITCHING, 06/25/17) Subjective comfortable Objective Vital Signs Last 24 Hour Vital Signs Date Time Temp Pulse Resp B/P (MAP) Pulse Ox O2 Delivery O2 Flow Rate FiO2 07/26/17 08:00 97.7 64 20 107/66 90 97.7 07/26/17 07:46 65 124/74 07/26/17 07:46 124/74 07/26/17 05:47 65 124/74 07/26/17 04:00 98.5 65 20 124/74 93 98.5 07/26/17 00:00 97.2 65 20 123/78 94 Nasal Cannula 97.2 07/25/17 23:27 68 124/74 07/25/17 22:12 Nasal Cannula 2.0 07/25/17 22:11 98.8 69 20 134/77 Nasal Cannula 2.0 98.8 07/25/17 22:04 123/70 07/25/17 22:03 72 123/70 07/25/17 20:00 98.6 66 20 107/66 95 Room Air 98.6 07/25/17 16:30 Nasal Cannula 2.0 07/25/17 16:30 98.6 69 20 104/64 Room Air 2.0 98.6 07/25/17 16:00 98.2 76 20 131/89 94 Nasal Cannula 2.0 98.2 07/25/17 15:04 64 143/70 07/25/17 12:00 98.0 63 20 144/79 94 Nasal Cannula 2.0 98.0 Height (Feet): 5 Height (Inches): 7.00 Weight (Pounds): 214 HEENT: mucous membranes moist Respiratory/Chest: normal breath sounds Cardiovascular: regularly irregular Abdomen: no organomegaly Laboratory Tests Test 07/26/17 05:55 White Blood Count 4.5 K/UL (4.8-10.8) L Red Blood Count 2.77 M/UL (4.70-6.10) L Hemoglobin 9.0 G/DL (14.2-18.0) L Hematocrit 28.2 % (42.0-52.0) L Mean Corpuscular Volume 102 FL (80-99) H Mean Corpuscular Hemoglobin 32.4 PG (27.0-31.0) H Mean Corpuscular Hemoglobin Concent 31.9 G/DL (32.0-36.0) L Red Cell Distribution Width 13.7 % (11.6-14.8) Platelet Count 82 K/UL (150-450) L Mean Platelet Volume 8.3 FL (6.5-10.1) Neutrophils (%) (Auto) % (45.0-75.0) Lymphocytes (%) (Auto) % (20.0-45.0) Monocytes (%) (Auto) % (1.0-10.0) Eosinophils (%) (Auto) % (0.0-3.0) Basophils (%) (Auto) % (0.0-2.0) Neutrophils % (Manual) Pending Lymphocytes % (Manual) Pending Platelet Estimate Pending Platelet Morphology Pending Sodium Level 139 MMOL/L (136-145) Potassium Level 4.9 MMOL/L (3.5-5.1) Chloride Level 98 MMOL/L (98-107) Carbon Dioxide Level 30 MMOL/L (21-32) Anion Gap 11 mmol/L (5-15) Blood Urea Nitrogen 46 mg/dL (7-18) H Creatinine 9.5 MG/DL (0.55-1.30) H Estimat Glomerular Filtration Rate 6.9 mL/min (>60) Glucose Level 91 MG/DL (74-106) Calcium Level 9.1 MG/DL (8.5-10.1) Current Medications Medications (Trade) Dose Ordered Sig/Jose Route PRN Reason Start Time Stop Time Status Last Admin Dose Admin Alprazolam (Xanax) 2 mg DAILYPRN PRN ORAL For Anxiety 07/23/17 19:15 07/30/17 19:14 07/25/17 23:17 Amikacin Protocol (Amikacin pharmacy to dose) 1 ea DAILY PRN MISC Per rx protocol 07/16/17 09:00 08/03/17 15:14 Amikacin Sulfate 500 mg/Dextrose 112 ml @ 224 mls/hr FRI-FRI-FRI IV 07/25/17 21:00 08/01/17 20:59 07/25/17 22:05 Apixaban (Eliquis) 2.5 mg Q12HR ORAL 07/16/17 09:00 08/15/17 08:59 07/26/17 07:46 Carisoprodol (Soma) 350 mg Q6H PRN ORAL Muscle Spasm 07/18/17 15:30 08/17/17 15:29 07/24/17 16:59 Chlorhexidine Gluconate (Mireille-Hex 2%) 1 applic DAILY@2000 TOPIC 07/15/17 20:00 08/02/17 19:59 07/25/17 21:12 Clindamycin HCl (Cleocin) 450 mg EVERY 6 HOURS ORAL 07/24/17 12:00 09/04/17 11:59 07/26/17 05:47 Dextrose (Dextrose 50%) 25 ml STAT PRN IV HYPOGLYCEMIA 07/16/17 08:30 08/08/17 08:29 Diltiazem HCl (Cardizem) 60 mg Q8HR ORAL 07/22/17 22:00 08/21/17 21:59 07/26/17 05:47 Ethambutol HCl (Myambutol) 1,000 mg 3XW@2099 ORAL 07/23/17 21:00 08/22/17 20:59 07/25/17 21:14 Hydromorphone HCl (Dilaudid) 2 mg Q4H PRN IVP Severe Pain (Pain Scale 7-10) 07/23/17 21:30 07/30/17 21:29 07/26/17 07:47 Levofloxacin (Levaquin) 750 mg EVERY OTHER DAY@1999 ORAL 07/23/17 20:00 07/30/17 19:59 07/25/17 21:12 Lisinopril (Prinivil) 20 mg Q12HR ORAL 07/16/17 09:00 08/15/17 08:59 07/26/17 07:46 Metoprolol Tartrate (Lopressor) 100 mg Q12HR ORAL 07/15/17 21:00 08/10/17 20:59 07/26/17 07:46 Ondansetron HCl (Zofran) 4 mg Q6H PRN IVP Nausea & Vomiting 07/18/17 15:30 08/17/17 15:29 07/24/17 21:46 Cristofer Antunez MD Jul 26, 2017 11:52
[2017-07-26 12:00] VITALS: BP 110/70
--- NOTE | 2017-07-26 12:47 | General Progress Note ---
Assessment/Plan Assessment/Plan Assessment - gallstones - abnormal LFT / cirrhosis - Periodic N/V with abnormal GB ultrasound, ? possibly biliary colic - patient declined HIDA - Anemia, multifactorial - OB (+) Stool - patient declined EGD/Colon - ESRD/HD - DM - HTN - COPD - Cavitary lung disease - Thrombocytopenia - cirrhotic appearing liver on CT - Hepatitis C Ab (+)/ PCR (-) - Poor prognosis Recommendations - PO as tolerated - follow symptoms and exam - monitor LFT - avoid hepatotoxic meds - abx per ID Subjective Allergies: Coded Allergies: IODINE AND IODIDE CONTAINING PRODUC (Verified Allergy, Mild, itching and pruritis, 06/25/17) Uncoded Allergies: CONTRAST/DYE (Allergy, Intermediate, PRURITIS AND ITCHING, 06/25/17) Subjective above noted tolerating PO no vomiting no abd pain Objective Last 24 Hour Vital Signs Date Time Temp Pulse Resp B/P (MAP) Pulse Ox O2 Delivery O2 Flow Rate FiO2 07/26/17 08:00 97.7 64 20 107/66 90 97.7 07/26/17 07:46 65 124/74 07/26/17 07:46 124/74 07/26/17 05:47 65 124/74 07/26/17 04:00 98.5 65 20 124/74 93 98.5 07/26/17 00:00 97.2 65 20 123/78 94 Nasal Cannula 97.2 07/25/17 23:27 68 124/74 07/25/17 22:12 Nasal Cannula 2.0 07/25/17 22:11 98.8 69 20 134/77 Nasal Cannula 2.0 98.8 07/25/17 22:04 123/70 07/25/17 22:03 72 123/70 07/25/17 20:00 98.6 66 20 107/66 95 Room Air 98.6 07/25/17 16:30 Nasal Cannula 2.0 07/25/17 16:30 98.6 69 20 104/64 Room Air 2.0 98.6 07/25/17 16:00 98.2 76 20 131/89 94 Nasal Cannula 2.0 98.2 07/25/17 15:04 64 143/70 Intake and Output 07/25/17 07/26/17 18:59 06:59 Intake Total 600 ml 574 ml Output Total 2321 ml Balance 600 ml -1747 ml Intake Oral 600 ml 350 ml IV Total 224 ml Output Urine Total 0 ml Hemodialysis UF 2321 ml # Voids 3 Laboratory Tests 07/26/17 05:55: White Blood Count 4.5L, Red Blood Count 2.77L, Hemoglobin 9.0L, Hematocrit 28.2L , Mean Corpuscular Volume 102H, Mean Corpuscular Hemoglobin 32.4H, Mean Corpuscular Hemoglobin Concent 31.9L, Red Cell Distribution Width 13.7, Platelet Count 82L, Mean Platelet Volume 8.3, Neutrophils (%) (Auto) , Lymphocytes (%) (Auto) , Monocytes (%) (Auto) , Eosinophils (%) (Auto) , Basophils (%) (Auto) , Differential Total Cells Counted 100, Neutrophils % ( Manual) 40L, Lymphocytes % (Manual) 27, Monocytes % (Manual) 15H, Eosinophils % (Manual) 17H, Basophils % (Manual) 1, Band Neutrophils 0, Platelet Estimate DecreasedL, Platelet Morphology Normal, Macrocytosis 2+, Sodium Level 139, Potassium Level 4.9, Chloride Level 98, Carbon Dioxide Level 30, Anion Gap 11, Blood Urea Nitrogen 46H, Creatinine 9.5H, Estimat Glomerular Filtration Rate 6.9 , Glucose Level 91, Calcium Level 9.1 Height (Feet): 5 Height (Inches): 7.00 Weight (Pounds): 214 Objective WDWN AA Man NCAT supple CTA RRR Soft mildly distended, (+) trunk edema (++) leg edema PERCY JOYNER Jul 26, 2017 12:47
--- NOTE | 2017-07-26 13:03 | Internal Med Progress Note ---
Subjective Date of Service: Jul 26, 2017 Physician Name Zoey Pires Attending Physician Chaitanya Weinstein MD Current Medications Medications (Trade) Dose Ordered Sig/Jose Route PRN Reason Start Time Stop Time Status Last Admin Dose Admin Alprazolam (Xanax) 2 mg DAILYPRN PRN ORAL For Anxiety 07/23/17 19:15 07/30/17 19:14 07/25/17 23:17 Amikacin Protocol (Amikacin pharmacy to dose) 1 ea DAILY PRN MISC Per rx protocol 07/16/17 09:00 08/03/17 15:14 Amikacin Sulfate 500 mg/Dextrose 112 ml @ 224 mls/hr FRI-FRI-FRI IV 07/25/17 21:00 08/01/17 20:59 07/25/17 22:05 Apixaban (Eliquis) 2.5 mg Q12HR ORAL 07/16/17 09:00 08/15/17 08:59 07/26/17 07:46 Carisoprodol (Soma) 350 mg Q6H PRN ORAL Muscle Spasm 07/18/17 15:30 08/17/17 15:29 07/24/17 16:59 Chlorhexidine Gluconate (Mireille-Hex 2%) 1 applic DAILY@1999 TOPIC 07/15/17 20:00 08/02/17 19:59 07/25/17 21:12 Clindamycin HCl (Cleocin) 450 mg EVERY 6 HOURS ORAL 07/24/17 12:00 09/04/17 11:59 07/26/17 11:57 Dextrose (Dextrose 50%) 25 ml STAT PRN IV HYPOGLYCEMIA 07/16/17 08:30 08/08/17 08:29 Diltiazem HCl (Cardizem) 60 mg Q8HR ORAL 07/22/17 22:00 08/21/17 21:59 07/26/17 05:47 Ethambutol HCl (Myambutol) 1,000 mg 3XW@2100 ORAL 07/23/17 21:00 08/22/17 20:59 07/25/17 21:14 Hydromorphone HCl (Dilaudid) 2 mg Q4H PRN IVP Severe Pain (Pain Scale 7-10) 07/23/17 21:30 07/30/17 21:29 07/26/17 11:58 Levofloxacin (Levaquin) 750 mg EVERY OTHER DAY@1999 ORAL 07/23/17 20:00 07/30/17 19:59 07/25/17 21:12 Lisinopril (Prinivil) 20 mg Q12HR ORAL 07/16/17 09:00 08/15/17 08:59 07/26/17 07:46 Metoprolol Tartrate (Lopressor) 100 mg Q12HR ORAL 07/15/17 21:00 08/10/17 20:59 07/26/17 07:46 Ondansetron HCl (Zofran) 4 mg Q6H PRN IVP Nausea & Vomiting 07/18/17 15:30 08/17/17 15:29 07/24/17 21:46 Allergies: Coded Allergies: IODINE AND IODIDE CONTAINING PRODUC (Verified Allergy, Mild, itching and pruritis, 06/25/17) Uncoded Allergies: CONTRAST/DYE (Allergy, Intermediate, PRURITIS AND ITCHING, 06/25/17) ROS Limited/Unobtainable: No Constitutional: Reports: no symptoms HEENT: Reports: no symptoms Cardiovascular: Reports: no symptoms Respiratory: Reports: no symptoms Gastrointestinal/Abdominal: Reports: no symptoms Neurologic/Psychiatric: Reports: no symptoms Subjective 57 YO M admitted with chest pain and shortness of breath. Now pneumonia and candelaria heart failure. Back on nasal canula. Cover for Int Med-Dr Weinstein. Now atrial flutter Objective Last Vital Signs Date Time Temp Pulse Resp B/P (MAP) Pulse Ox O2 Delivery O2 Flow Rate FiO2 07/26/17 08:00 97.7 64 20 107/66 90 97.7 07/26/17 00:00 Nasal Cannula 07/25/17 22:12 2.0 07/24/17 20:01 28 Laboratory Tests Test 07/26/17 05:55 White Blood Count 4.5 K/UL (4.8-10.8) L Red Blood Count 2.77 M/UL (4.70-6.10) L Hemoglobin 9.0 G/DL (14.2-18.0) L Hematocrit 28.2 % (42.0-52.0) L Mean Corpuscular Volume 102 FL (80-99) H Mean Corpuscular Hemoglobin 32.4 PG (27.0-31.0) H Mean Corpuscular Hemoglobin Concent 31.9 G/DL (32.0-36.0) L Red Cell Distribution Width 13.7 % (11.6-14.8) Platelet Count 82 K/UL (150-450) L Mean Platelet Volume 8.3 FL (6.5-10.1) Neutrophils (%) (Auto) % (45.0-75.0) Lymphocytes (%) (Auto) % (20.0-45.0) Monocytes (%) (Auto) % (1.0-10.0) Eosinophils (%) (Auto) % (0.0-3.0) Basophils (%) (Auto) % (0.0-2.0) Differential Total Cells Counted 100 Neutrophils % (Manual) 40 % (45-75) L Lymphocytes % (Manual) 27 % (20-45) Monocytes % (Manual) 15 % (1-10) H Eosinophils % (Manual) 17 % (0-3) H Basophils % (Manual) 1 % (0-2) Band Neutrophils 0 % (0-8) Platelet Estimate Decreased L Platelet Morphology Normal Macrocytosis 2+ Sodium Level 139 MMOL/L (136-145) Potassium Level 4.9 MMOL/L (3.5-5.1) Chloride Level 98 MMOL/L (98-107) Carbon Dioxide Level 30 MMOL/L (21-32) Anion Gap 11 mmol/L (5-15) Blood Urea Nitrogen 46 mg/dL (7-18) H Creatinine 9.5 MG/DL (0.55-1.30) H Estimat Glomerular Filtration Rate 6.9 mL/min (>60) Glucose Level 91 MG/DL (74-106) Calcium Level 9.1 MG/DL (8.5-10.1) Intake and Output 07/25/17 07/26/17 19:00 07:00 Intake Total 600 ml 574 ml Output Total 2321 ml Balance 600 ml -1747 ml Intake Oral 600 ml 350 ml IV Total 224 ml Output Urine Total 0 ml Hemodialysis UF 2321 ml # Voids 3 Objective General Appearance: WD/WN, alert, moderate distress EENT: PERRL/EOMI, normal ENT inspection Neck: non-tender, normal alignment, supple, normal inspection Cardiovascular: Tachycardia; normal peripheral pulses, normal rate, regular rhythm, no gallop/murmur, no JVD Respiratory/Chest: Nasal canula; respiratory distress, crackles/rales, rhonchi - bilaterally, expiratory wheezing Abdomen: normal bowel sounds, non tender, soft, no organomegaly, no mass Extremities: normal range of motion Neurologic: smoking 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 (2) Respiratory failure Assessment & Plan: CHF and Pneumonia. Currently on nasal canula. See pulmonay note. (3) Pleuritic chest pain (4) Hemoptysis Assessment & Plan: Due to pneumonia (5) Pneumonia Assessment & Plan: Providencia and pseudamonas. RUL. AFB cultures negative- see ID consult. Continue ethambutol, amikacin, levaquin and clindamycin per ID (6) Shortness of breath (7) ESRD (end stage renal disease) on dialysis Assessment & Plan: See nephrology note. Next Hemodialysis 07/23/17 per nephrology (8) Hyperkalemia Assessment & Plan: Due to renal failure. Hemodialysis 06/13/17 per nephrology (9) COPD (chronic obstructive pulmonary disease) (10) HTN (hypertension) Assessment & Plan: Continue coreg and lisinopril. (11) CHF (congestive heart failure) (12) Elevated troponin Assessment & Plan: ?due to renal failure? See cardiology note. (13) Intractable abdominal pain Assessment & Plan: See surgery note (14) Conjunctivitis Assessment & Plan: start tobramycin (15) Diarrhea Assessment & Plan: C. Diff Status: stable Assessment/Plan Discharge planning - [facility] fac ZOEY PIRES Jul 26, 2017 13:03
[2017-07-26 16:00] VITALS: BP 141/81
[2017-07-26 20:00] VITALS: BP 132/76
[2017-07-26] MEDS: Dyna-Hex 2% Top Sol 2oz TOPIC SCH (20:06)
[2017-07-26] MEDS: ALPRAZolam 0.5mg tab ORAL PRN (21:32)
--- NOTE | 2017-07-26 22:31 | General Progress Note ---
Assessment/Plan Assessment/Plan #. Anemia secondary to chronic disease. --> Hemoglobin levels have been stable. No blood transfusion required at this time. --> S/P abd CAT scan revealing evidence of hepatic cirrhosis. --> Continue to closely monitor and trend cbc daily. --> Anemia workup completed and reviewed. Iron 42, TIBC 180, Ferritin 593, B12 876. --> Ferritin is >500, hgb goal is >7 --> Anemia w/u has been reviewed --> ++Occult blood. Consider GI Services and Recs. #. Left leg dvt --> acute onset, will need to review final duplex results --> on apixaban daily x 3 months, H/H has been stable. INR improved. --> okay to change to different anticoagulant if renal clearance an issue --> If h/h downtrends below 7.5, consider ivc filter placement. --> Hemoglobin currently >7.5 #. Thrombocytopenia. --> Hepatitis C ab ++, PCR - --> Monitor platelet level. Transfuse if platelet count <20k --> Levels remain low. # Hepatosplenomegaly. Ascites. There is also evidence of generalized anasarca, with pleural fluid and generalized subcutaneous edema --> Abd pain improved on pain management --> Refer to surgery note. #. Anemia of kidney disease --> HD as needed per nephrology team --> Monitor closely. --> Does not require iron at this time #. Generalized body ache related to fluid overload. #. End-stage renal disease, on hemodialysis as needed --> On hemodialysis #. Respiratory failure due to CHF and pneumonia. --> Providencia and pseudomonas. --> On vancomycin and ethambutol per ID. --> Chest pain improved at this time, on pain management. #. Shortness of breath. Due to underlying pneumonia. #. Atrial flutter with rapid ventricular response. On metoprolol and diltiazem. #. Conjunctivitis. Begin tobramycin. On anti TB treatment. On Amikacin and ethambutol. Continue telemetry. Subjective Date patient seen: Jul 26, 2017 Constitutional: Denies: no symptoms, chills, diaphoresis, fever, malaise, weakness, other HEENT: Denies: no symptoms, eye pain, blurred vision, tearing, double vision, ear pain, ear discharge, nose pain, nose congestion, throat pain, throat swelling, mouth pain, mouth swelling, other Cardiovascular: Denies: no symptoms, chest pain, edema, irregular heart rate, lightheadedness, palpitations, syncope, other Respiratory: Denies: no symptoms, cough, orthopnea, shortness of breath, SOB with excertion, SOB at rest, sputum, stridor, wheezing, other Gastrointestinal/Abdominal: Denies: no symptoms, abdomen distended, abdominal pain, black stools, tarry stools, blood in stool, constipated, diarrhea, difficulty swallowing, nausea, poor appetite, poor fluid intake, rectal bleeding , vomiting, other Genitourinary: Denies: no symptoms, burning, discharge, frequency, flank pain, hematuria, incontinence, pain, urgency, other Neurologic/Psychiatric: Denies: no symptoms, anxiety, depressed, emotional problems, headache, numbness, paresthesia, pre-existing deficit, seizure, tingling, tremors, weakness, other Hematologic/Lymphatic: Reports: anemia Allergies: Coded Allergies: IODINE AND IODIDE CONTAINING PRODUC (Verified Allergy, Mild, itching and pruritis, 06/25/17) Uncoded Allergies: CONTRAST/DYE (Allergy, Intermediate, PRURITIS AND ITCHING, 06/25/17) Subjective On pain management. Edema. Distended. Objective Last 24 Hour Vital Signs Date Time Temp Pulse Resp B/P (MAP) Pulse Ox O2 Delivery O2 Flow Rate FiO2 07/26/17 21:32 70 132/76 07/26/17 21:32 132/76 07/26/17 20:21 70 20 Nasal Cannula 2.0 28 07/26/17 20:21 93 Nasal Cannula 2.0 28 07/26/17 20:21 Nasal Cannula 2.0 28 07/26/17 20:00 99.0 67 20 132/76 90 99.0 07/26/17 16:00 97.2 65 20 141/81 88 97.2 07/26/17 14:20 57 110/70 07/26/17 12:00 97.7 57 20 110/70 88 97.7 07/26/17 08:00 97.7 64 20 107/66 90 97.7 07/26/17 07:46 65 124/74 07/26/17 07:46 124/74 07/26/17 05:47 65 124/74 07/26/17 04:00 98.5 65 20 124/74 93 98.5 07/26/17 00:00 97.2 65 20 123/78 94 Nasal Cannula 97.2 07/25/17 23:27 68 124/74 Intake and Output 07/25/17 07/26/17 19:00 07:00 Intake Total 600 ml 574 ml Output Total 2321 ml Balance 600 ml -1747 ml Intake Oral 600 ml 350 ml IV Total 224 ml Output Urine Total 0 ml Hemodialysis UF 2321 ml # Voids 3 Laboratory Tests 07/26/17 05:55: White Blood Count 4.5L, Red Blood Count 2.77L, Hemoglobin 9.0L, Hematocrit 28.2L , Mean Corpuscular Volume 102H, Mean Corpuscular Hemoglobin 32.4H, Mean Corpuscular Hemoglobin Concent 31.9L, Red Cell Distribution Width 13.7, Platelet Count 82L, Mean Platelet Volume 8.3, Neutrophils (%) (Auto) , Lymphocytes (%) (Auto) , Monocytes (%) (Auto) , Eosinophils (%) (Auto) , Basophils (%) (Auto) , Differential Total Cells Counted 100, Neutrophils % ( Manual) 40L, Lymphocytes % (Manual) 27, Monocytes % (Manual) 15H, Eosinophils % (Manual) 17H, Basophils % (Manual) 1, Band Neutrophils 0, Platelet Estimate DecreasedL, Platelet Morphology Normal, Macrocytosis 2+, Sodium Level 139, Potassium Level 4.9, Chloride Level 98, Carbon Dioxide Level 30, Anion Gap 11, Blood Urea Nitrogen 46H, Creatinine 9.5H, Estimat Glomerular Filtration Rate 6.9 , Glucose Level 91, Calcium Level 9.1 Height (Feet): 5 Height (Inches): 7.00 Weight (Pounds): 214 General Appearance: confused Cardiovascular: normal rate, regular rhythm Respiratory/Chest: decreased breath sounds Abdomen: distended Edema: mild edema ZAK RUIZ Jul 26, 2017 22:31
[2017-07-27] VITALS: BP 121/75
[2017-07-27] MEDS: Clindamycin 150mg cap ORAL SCH ×5 (00:09→23:18)
[2017-07-27 04:00] VITALS: BP 129/78
[2017-07-27] MEDS: dilTIAZem HCl 60mg tab ORAL SCH ×3 (05:37→23:18)
[2017-07-27 07:15] LABS: ANION GAP 10 mmol/L (5-15); BLOOD UREA NITROGEN 61 mg/dL (7-18); CARBON DIOXIDE 30 MMOL/L (21-32); CHLORIDE 98 MMOL/L (98-107); CREATININE 10.9 MG/DL (0.55-1.30); POTASSIUM 5.4 MMOL/L (3.5-5.1); SODIUM 138 MMOL/L (136-145)
[2017-07-27 07:24] LABS: HEMATOCRIT 27.5 % (42.0-52.0); HEMOGLOBIN 8.7 G/DL (14.2-18.0); MEAN CORPUSCULAR VOLUME 101 FL (80-99); PLATELET COUNT 84 K/UL (150-450); RED BLOOD COUNT 2.73 M/UL (4.70-6.10); RED CELL DISTRIBUTION WIDTH 13.6 % (11.6-14.8); WHITE BLOOD COUNT 4.5 K/UL (4.8-10.8)
[2017-07-27 08:00] VITALS: BP 101/51
[2017-07-27] MEDS ORDERED: Sodium Polystyrene Sulfonate 15gm Powder ORAL ONE (08:00)
[2017-07-27] MEDS: Lisinopril 20mg tab ORAL SCH ×2 (09:00→20:18)
[2017-07-27] MEDS: Eliquis 2.5mg tablet ORAL SCH ×2 (09:00→21:00)
--- NOTE | 2017-07-27 09:41 | Nephrology Progress Note ---
Assessment/Plan Problem List: (1) ESRD (end stage renal disease) on dialysis (2) Shortness of breath (3) Anemia Assessment Anemia ESRD , missed HD on admission , admitted with high K and pulmonary edema Acute respiratory distress due to volume overload elevated troponin r/o ACS h/o COPD ? exacerbation HTN urgency Cardiomyopathy L AICD anemia of chronic kidney disease Hx of CVA Plan Plan: HD last 07/25- will care for high K with HD Next HD 07/28 Kayexelate PRN Max UF Transfused Phos binders BP meds adjustment Optimize cardiac status per orders Subjective ROS Limited/Unobtainable: No Constitutional: Reports: malaise Objective Objective Last 24 Hour Vital Signs Date Time Temp Pulse Resp B/P (MAP) Pulse Ox O2 Delivery O2 Flow Rate FiO2 07/27/17 08:09 98.6 07/27/17 05:37 74 129/78 07/27/17 04:00 98.6 74 20 129/78 94 98.6 07/27/17 00:00 98.7 74 20 121/75 92 98.7 07/26/17 23:07 72 125/74 07/26/17 21:32 70 132/76 07/26/17 21:32 132/76 07/26/17 20:21 70 20 Nasal Cannula 2.0 28 07/26/17 20:21 93 Nasal Cannula 2.0 28 07/26/17 20:21 Nasal Cannula 2.0 28 07/26/17 20:00 99.0 67 20 132/76 90 99.0 07/26/17 16:00 97.2 65 20 141/81 88 97.2 07/26/17 14:20 57 110/70 07/26/17 12:00 97.7 57 20 110/70 88 97.7 Intake and Output 07/26/17 07/27/17 19:00 07:00 Intake Total 300 ml Balance 300 ml Intake Oral 300 ml # Voids 2 3 # Bowel Movements 2 Laboratory Tests 07/27/17 05:40: White Blood Count 4.5L, Red Blood Count 2.73L, Hemoglobin 8.7L, Hematocrit 27.5L , Mean Corpuscular Volume 101H, Mean Corpuscular Hemoglobin 32.0H, Mean Corpuscular Hemoglobin Concent 31.8L, Red Cell Distribution Width 13.6, Platelet Count 84L, Mean Platelet Volume 7.4, Neutrophils (%) (Auto) , Lymphocytes (%) (Auto) , Monocytes (%) (Auto) , Eosinophils (%) (Auto) , Basophils (%) (Auto) , Neutrophils % (Manual) [Pending], Lymphocytes % (Manual) [Pending], Platelet Estimate [Pending], Platelet Morphology [Pending], Sodium Level 138, Potassium Level 5.4H, Chloride Level 98, Carbon Dioxide Level 30, Anion Gap 10, Blood Urea Nitrogen 61H, Creatinine 10.9H, Estimat Glomerular Filtration Rate 5.9, Glucose Level 86, Calcium Level 9.0 Height (Feet): 5 Height (Inches): 7.00 Weight (Pounds): 208 General Appearance: no apparent distress Abdomen: distended Objective no change LIAM MONTELONGO Jul 27, 2017 09:41
[2017-07-27 09:59] LABS: ALANINE AMINOTRANSFERASE 14 U/L (12-78); ALBUMIN 2.6 G/DL (3.4-5.0); ALKALINE PHOSPHATASE 174 U/L (46-116); ASPARTATE AMINO TRANSFERASE 28 U/L (15-37); BILIRUBIN,DIRECT 0.5 MG/DL (0.0-0.3); BILIRUBIN,TOTAL 1.1 MG/DL (0.2-1.0); PHOSPHORUS 8.2 MG/DL (2.5-4.9)
[2017-07-27 12:00] VITALS: BP 118/79
--- NOTE | 2017-07-27 14:05 | General Progress Note ---
Assessment/Plan Assessment/Plan Assessment - gallstones - abnormal LFT / cirrhosis - Periodic N/V with abnormal GB ultrasound, ? possibly biliary colic - patient declined HIDA - Anemia, multifactorial - OB (+) Stool - patient declined EGD/Colon - ESRD/HD - DM - HTN - COPD - Cavitary lung disease - Thrombocytopenia - cirrhotic appearing liver on CT - Hepatitis C Ab (+)/ PCR (-) - Poor prognosis Recommendations - PO as tolerated - follow symptoms and exam - monitor LFT - avoid hepatotoxic meds - BID PPI - monitor CBC - agree with possible IVC filter - abx per ID Subjective Allergies: Coded Allergies: IODINE AND IODIDE CONTAINING PRODUC (Verified Allergy, Mild, itching and pruritis, 06/25/17) Uncoded Allergies: CONTRAST/DYE (Allergy, Intermediate, PRURITIS AND ITCHING, 06/25/17) Subjective above noted tolerating PO no vomiting no abd pain H&H slightly lower Objective Last 24 Hour Vital Signs Date Time Temp Pulse Resp B/P (MAP) Pulse Ox O2 Delivery O2 Flow Rate FiO2 07/27/17 12:12 98.6 07/27/17 12:00 98.0 65 20 118/79 95 Nasal Cannula 2.0 98.0 07/27/17 09:00 63 101/51 07/27/17 09:00 101/51 07/27/17 08:39 98.6 07/27/17 08:09 98.6 07/27/17 08:00 98.4 63 21 101/51 95 98.4 07/27/17 07:35 Nasal Cannula 2.0 28 07/27/17 07:35 94 Nasal Cannula 2.0 28 07/27/17 05:37 74 129/78 07/27/17 04:00 98.6 74 20 129/78 94 98.6 07/27/17 00:00 98.7 74 20 121/75 92 98.7 07/26/17 23:07 72 125/74 07/26/17 21:32 70 132/76 07/26/17 21:32 132/76 07/26/17 20:21 70 20 Nasal Cannula 2.0 28 07/26/17 20:21 93 Nasal Cannula 2.0 28 07/26/17 20:21 Nasal Cannula 2.0 28 07/26/17 20:00 99.0 67 20 132/76 90 99.0 07/26/17 16:00 97.2 65 20 141/81 88 97.2 07/26/17 14:20 57 110/70 Intake and Output 07/26/17 07/27/17 19:00 07:00 Intake Total 300 ml Balance 300 ml Intake Oral 300 ml # Voids 2 3 # Bowel Movements 2 Laboratory Tests 07/27/17 05:40: White Blood Count 4.5L, Red Blood Count 2.73L, Hemoglobin 8.7L, Hematocrit 27.5L , Mean Corpuscular Volume 101H, Mean Corpuscular Hemoglobin 32.0H, Mean Corpuscular Hemoglobin Concent 31.8L, Red Cell Distribution Width 13.6, Platelet Count 84L, Mean Platelet Volume 7.4, Neutrophils (%) (Auto) , Lymphocytes (%) (Auto) , Monocytes (%) (Auto) , Eosinophils (%) (Auto) , Basophils (%) (Auto) , Differential Total Cells Counted 100, Neutrophils % ( Manual) 45, Lymphocytes % (Manual) 24, Monocytes % (Manual) 12H, Eosinophils % ( Manual) 19H, Basophils % (Manual) 0, Band Neutrophils 0, Platelet Estimate DecreasedL, Platelet Morphology Normal, Hypochromasia 1+, Macrocytosis 1+, Sodium Level 138, Potassium Level 5.4H, Chloride Level 98, Carbon Dioxide Level 30, Anion Gap 10, Blood Urea Nitrogen 61H, Creatinine 10.9H, Estimat Glomerular Filtration Rate 5.9, Glucose Level 86, Calcium Level 9.0, Phosphorus Level 8.2H , Total Bilirubin 1.1H, Direct Bilirubin 0.5H, Aspartate Amino Transf (AST/SGOT ) 28, Alanine Aminotransferase (ALT/SGPT) 14, Alkaline Phosphatase 174H, Total Protein 7.4, Albumin 2.6L Height (Feet): 5 Height (Inches): 7.00 Weight (Pounds): 208 Objective WDWN AA Man NCAT supple CTA RRR Soft mildly distended, (+) trunk edema (++) leg edema PERCY JOYNER Jul 27, 2017 14:05
--- NOTE | 2017-07-27 14:22 | Internal Med Progress Note ---
Subjective Date of Service: Jul 27, 2017 Physician Name Zoey Pires Attending Physician Chaitanya Weinstein MD Current Medications Medications (Trade) Dose Ordered Sig/Jose Route PRN Reason Start Time Stop Time Status Last Admin Dose Admin Alprazolam (Xanax) 2 mg DAILYPRN PRN ORAL For Anxiety 07/23/17 19:15 07/30/17 19:14 07/26/17 21:32 Amikacin Protocol (Amikacin pharmacy to dose) 1 ea DAILY PRN MISC Per rx protocol 07/16/17 09:00 08/03/17 15:14 Amikacin Sulfate 500 mg/Dextrose 112 ml @ 224 mls/hr FRI-FRI-FRI IV 07/25/17 21:00 08/01/17 20:59 07/25/17 22:05 Apixaban (Eliquis) 2.5 mg Q12HR ORAL 07/16/17 09:00 08/15/17 08:59 07/26/17 07:46 Carisoprodol (Soma) 350 mg Q6H PRN ORAL Muscle Spasm 07/18/17 15:30 08/17/17 15:29 07/27/17 14:15 Chlorhexidine Gluconate (Mireille-Hex 2%) 1 applic DAILY@2000 TOPIC 07/15/17 20:00 08/02/17 19:59 07/26/17 20:06 Clindamycin HCl (Cleocin) 450 mg EVERY 6 HOURS ORAL 07/24/17 12:00 09/04/17 11:59 07/27/17 11:48 Dextrose (Dextrose 50%) 25 ml STAT PRN IV HYPOGLYCEMIA 07/16/17 08:30 08/08/17 08:29 Diltiazem HCl (Cardizem) 60 mg Q8HR ORAL 07/22/17 22:00 08/21/17 21:59 07/27/17 14:11 Ethambutol HCl (Myambutol) 1,000 mg 3XW@2100 ORAL 07/23/17 21:00 08/22/17 20:59 07/25/17 21:14 Hydromorphone HCl (Dilaudid) 2 mg Q4H PRN IVP Severe Pain (Pain Scale 7-10) 07/23/17 21:30 07/30/17 21:29 07/27/17 12:12 Levofloxacin (Levaquin) 750 mg EVERY OTHER DAY@1999 ORAL 07/23/17 20:00 07/30/17 19:59 07/25/17 21:12 Lisinopril (Prinivil) 20 mg Q12HR ORAL 07/16/17 09:00 08/15/17 08:59 07/26/17 21:32 Metoprolol Tartrate (Lopressor) 100 mg Q12HR ORAL 07/15/17 21:00 08/10/17 20:59 07/26/17 21:32 Ondansetron HCl (Zofran) 4 mg Q6H PRN IVP Nausea & Vomiting 07/18/17 15:30 08/17/17 15:29 07/26/17 14:20 Pantoprazole (Protonix) 40 mg BID ORAL 07/27/17 18:00 08/26/17 17:59 Allergies: Coded Allergies: IODINE AND IODIDE CONTAINING PRODUC (Verified Allergy, Mild, itching and pruritis, 06/25/17) Uncoded Allergies: CONTRAST/DYE (Allergy, Intermediate, PRURITIS AND ITCHING, 06/25/17) ROS Limited/Unobtainable: No Constitutional: Reports: no symptoms HEENT: Reports: no symptoms Cardiovascular: Reports: no symptoms Respiratory: Reports: no symptoms Gastrointestinal/Abdominal: Reports: no symptoms Genitourinary: Reports: no symptoms Neurologic/Psychiatric: Reports: no symptoms Subjective 57 YO M admitted with chest pain and shortness of breath. Now pneumonia and candelaria heart failure. Back on nasal canula. Cover for Int Misbah-Dr Weinstein. Now atrial flutter Objective Last Vital Signs Date Time Temp Pulse Resp B/P (MAP) Pulse Ox O2 Delivery O2 Flow Rate FiO2 07/27/17 14:15 98.6 07/27/17 14:11 65 118/79 07/27/17 12:00 20 95 Nasal Cannula 2.0 07/27/17 07:35 28 Laboratory Tests Test 07/27/17 05:40 White Blood Count 4.5 K/UL (4.8-10.8) L Red Blood Count 2.73 M/UL (4.70-6.10) L Hemoglobin 8.7 G/DL (14.2-18.0) L Hematocrit 27.5 % (42.0-52.0) L Mean Corpuscular Volume 101 FL (80-99) H Mean Corpuscular Hemoglobin 32.0 PG (27.0-31.0) H Mean Corpuscular Hemoglobin Concent 31.8 G/DL (32.0-36.0) L Red Cell Distribution Width 13.6 % (11.6-14.8) Platelet Count 84 K/UL (150-450) L Mean Platelet Volume 7.4 FL (6.5-10.1) Neutrophils (%) (Auto) % (45.0-75.0) Lymphocytes (%) (Auto) % (20.0-45.0) Monocytes (%) (Auto) % (1.0-10.0) Eosinophils (%) (Auto) % (0.0-3.0) Basophils (%) (Auto) % (0.0-2.0) Differential Total Cells Counted 100 Neutrophils % (Manual) 45 % (45-75) Lymphocytes % (Manual) 24 % (20-45) Monocytes % (Manual) 12 % (1-10) H Eosinophils % (Manual) 19 % (0-3) H Basophils % (Manual) 0 % (0-2) Band Neutrophils 0 % (0-8) Platelet Estimate Decreased L Platelet Morphology Normal Hypochromasia 1+ Macrocytosis 1+ Sodium Level 138 MMOL/L (136-145) Potassium Level 5.4 MMOL/L (3.5-5.1) H Chloride Level 98 MMOL/L (98-107) Carbon Dioxide Level 30 MMOL/L (21-32) Anion Gap 10 mmol/L (5-15) Blood Urea Nitrogen 61 mg/dL (7-18) H Creatinine 10.9 MG/DL (0.55-1.30) H Estimat Glomerular Filtration Rate 5.9 mL/min (>60) Glucose Level 86 MG/DL (74-106) Calcium Level 9.0 MG/DL (8.5-10.1) Phosphorus Level 8.2 MG/DL (2.5-4.9) H Total Bilirubin 1.1 MG/DL (0.2-1.0) H Direct Bilirubin 0.5 MG/DL (0.0-0.3) H Aspartate Amino Transf (AST/SGOT) 28 U/L (15-37) Alanine Aminotransferase (ALT/SGPT) 14 U/L (12-78) Alkaline Phosphatase 174 U/L (46-116) H Total Protein 7.4 G/DL (6.4-8.2) Albumin 2.6 G/DL (3.4-5.0) L Intake and Output 07/26/17 07/27/17 19:00 07:00 Intake Total 300 ml Balance 300 ml Intake Oral 300 ml # Voids 2 3 # Bowel Movements 2 Objective General Appearance: WD/WN, alert, moderate distress EENT: PERRL/EOMI, normal ENT inspection Neck: non-tender, normal alignment, supple, normal inspection Cardiovascular: Tachycardia; normal peripheral pulses, normal rate, regular rhythm, no gallop/murmur, no JVD Respiratory/Chest: Nasal canula; respiratory distress, crackles/rales, rhonchi - bilaterally, expiratory wheezing Abdomen: normal bowel sounds, non tender, soft, no organomegaly, no mass Extremities: normal range of motion Neurologic: director corporate compliance 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, no motor/sensory deficits Skin: normal pigmentation, warm/dry Assessment/Plan Problem List: (1) Atrial flutter with rapid ventricular response Assessment & Plan: D/C coreg; start metoprolol and IV diltiazem per cardiology consult. (2) Respiratory failure Assessment & Plan: CHF and Pneumonia. Currently on nasal canula. See pulmonay note. (3) Pleuritic chest pain (4) Hemoptysis Assessment & Plan: Due to pneumonia (5) Pneumonia Assessment & Plan: Providencia and pseudamonas. RUL. AFB cultures negative- see ID consult. Continue ethambutol, amikacin, levaquin and clindamycin per ID (6) Shortness of breath (7) ESRD (end stage renal disease) on dialysis Assessment & Plan: See nephrology note. Next Hemodialysis 07/28/17 per nephrology (8) Hyperkalemia Assessment & Plan: Due to renal failure. Hemodialysis 06/13/17 per nephrology (9) COPD (chronic obstructive pulmonary disease) (10) HTN (hypertension) Assessment & Plan: Continue coreg and lisinopril. (11) CHF (congestive heart failure) (12) Elevated troponin Assessment & Plan: ?due to renal failure? See cardiology note. (13) Intractable abdominal pain Assessment & Plan: See surgery note (14) Conjunctivitis Assessment & Plan: start tobramycin (15) Diarrhea Assessment & Plan: C. Diff Assessment/Plan Discharge planning - jail fac ZOEY PIRES Jul 27, 2017 14:21
[2017-07-27 16:00] VITALS: BP 109/58
[2017-07-27] MEDS: ALPRAZolam 0.5mg tab ORAL PRN (17:59)
[2017-07-27 20:00] VITALS: BP 123/73
[2017-07-27] MEDS: Dyna-Hex 2% Top Sol 2oz TOPIC SCH (20:16)
--- NOTE | 2017-07-27 23:41 | General Progress Note ---
Assessment/Plan Assessment/Plan #. Anemia secondary to chronic disease. --> Hemoglobin levels have been stable. No blood transfusion required at this time. --> S/P abd CAT scan revealing evidence of hepatic cirrhosis. --> Continue to closely monitor and trend cbc daily. --> Anemia workup completed and reviewed. Iron 42, TIBC 180, Ferritin 593, B12 876. --> Ferritin is >500, hgb goal is >7 --> Anemia w/u has been reviewed --> ++Occult blood. Consider GI Services and Recs. #. Left leg dvt --> acute onset, will need to review final duplex results --> on apixaban daily x 3 months, H/H has been stable. INR improved. --> okay to change to different anticoagulant if renal clearance an issue --> If h/h downtrends below 7.5, consider ivc filter placement. --> Hemoglobin currently >7.5 #. Thrombocytopenia. --> Hepatitis C ab ++, PCR - --> Monitor platelet level. Transfuse if platelet count <20k --> Levels remain low. # Hepatosplenomegaly. Ascites. There is also evidence of generalized anasarca, with pleural fluid and generalized subcutaneous edema --> Abd pain improved on pain management --> Refer to surgery note. #. Anemia of kidney disease --> HD as needed per nephrology team --> Monitor closely. --> Does not require iron at this time #. Generalized body ache related to fluid overload. #. End-stage renal disease, on hemodialysis as needed --> On hemodialysis #. Respiratory failure due to CHF and pneumonia. --> Providencia and pseudomonas. --> On vancomycin and ethambutol per ID. --> Chest pain improved at this time, on pain management. #. Shortness of breath. Due to underlying pneumonia. #. Atrial flutter with rapid ventricular response. On metoprolol and diltiazem. #. Conjunctivitis. Begin tobramycin. On anti TB treatment. On Amikacin and ethambutol. Continue telemetry. Subjective Date patient seen: Jul 27, 2017 Constitutional: Denies: no symptoms, chills, diaphoresis, fever, malaise, weakness, other HEENT: Denies: no symptoms, eye pain, blurred vision, tearing, double vision, ear pain, ear discharge, nose pain, nose congestion, throat pain, throat swelling, mouth pain, mouth swelling, other Cardiovascular: Denies: no symptoms, chest pain, edema, irregular heart rate, lightheadedness, palpitations, syncope, other Respiratory: Denies: no symptoms, cough, orthopnea, shortness of breath, SOB with excertion, SOB at rest, sputum, stridor, wheezing, other Gastrointestinal/Abdominal: Denies: no symptoms, abdomen distended, abdominal pain, black stools, tarry stools, blood in stool, constipated, diarrhea, difficulty swallowing, nausea, poor appetite, poor fluid intake, rectal bleeding , vomiting, other Genitourinary: Denies: no symptoms, burning, discharge, frequency, flank pain, hematuria, incontinence, pain, urgency, other Neurologic/Psychiatric: Denies: no symptoms, anxiety, depressed, emotional problems, headache, numbness, paresthesia, pre-existing deficit, seizure, tingling, tremors, weakness, other Allergies: Coded Allergies: IODINE AND IODIDE CONTAINING PRODUC (Verified Allergy, Mild, itching and pruritis, 06/25/17) Uncoded Allergies: CONTRAST/DYE (Allergy, Intermediate, PRURITIS AND ITCHING, 06/25/17) Subjective On pain management. Edema. Distended. No acute events. Objective Last 24 Hour Vital Signs Date Time Temp Pulse Resp B/P (MAP) Pulse Ox O2 Delivery O2 Flow Rate FiO2 07/27/17 23:18 75 113/66 07/27/17 20:23 95 Nasal Cannula 2.0 28 07/27/17 20:23 Nasal Cannula 2.0 28 07/27/17 20:18 64 123/73 07/27/17 20:18 123/73 07/27/17 20:00 98.0 64 19 123/73 98.0 07/27/17 16:43 98.6 07/27/17 16:13 98.6 07/27/17 16:00 97.8 67 20 109/58 95 Nasal Cannula 2.0 97.8 07/27/17 15:14 98.6 07/27/17 14:15 98.6 07/27/17 14:11 65 118/79 07/27/17 12:12 98.6 07/27/17 12:00 98.0 65 20 118/79 95 Nasal Cannula 2.0 98.0 07/27/17 09:00 63 101/51 07/27/17 09:00 101/51 07/27/17 08:09 98.6 07/27/17 08:00 98.4 63 21 101/51 95 98.4 07/27/17 07:35 Nasal Cannula 2.0 28 07/27/17 07:35 94 Nasal Cannula 2.0 28 07/27/17 05:37 74 129/78 07/27/17 04:00 98.6 74 20 129/78 94 98.6 07/27/17 00:00 98.7 74 20 121/75 92 98.7 Intake and Output 07/26/17 07/27/17 19:00 07:00 Intake Total 300 ml Balance 300 ml Intake Oral 300 ml # Voids 2 3 # Bowel Movements 2 Laboratory Tests 07/27/17 05:40: White Blood Count 4.5L, Red Blood Count 2.73L, Hemoglobin 8.7L, Hematocrit 27.5L , Mean Corpuscular Volume 101H, Mean Corpuscular Hemoglobin 32.0H, Mean Corpuscular Hemoglobin Concent 31.8L, Red Cell Distribution Width 13.6, Platelet Count 84L, Mean Platelet Volume 7.4, Neutrophils (%) (Auto) , Lymphocytes (%) (Auto) , Monocytes (%) (Auto) , Eosinophils (%) (Auto) , Basophils (%) (Auto) , Differential Total Cells Counted 100, Neutrophils % ( Manual) 45, Lymphocytes % (Manual) 24, Monocytes % (Manual) 12H, Eosinophils % ( Manual) 19H, Basophils % (Manual) 0, Band Neutrophils 0, Platelet Estimate DecreasedL, Platelet Morphology Normal, Hypochromasia 1+, Macrocytosis 1+, Sodium Level 138, Potassium Level 5.4H, Chloride Level 98, Carbon Dioxide Level 30, Anion Gap 10, Blood Urea Nitrogen 61H, Creatinine 10.9H, Estimat Glomerular Filtration Rate 5.9, Glucose Level 86, Calcium Level 9.0, Phosphorus Level 8.2H , Total Bilirubin 1.1H, Direct Bilirubin 0.5H, Aspartate Amino Transf (AST/SGOT ) 28, Alanine Aminotransferase (ALT/SGPT) 14, Alkaline Phosphatase 174H, Total Protein 7.4, Albumin 2.6L Height (Feet): 5 Height (Inches): 7.00 Weight (Pounds): 208 General Appearance: confused Respiratory/Chest: decreased breath sounds Abdomen: distended Edema: mild edema ZAK RUIZ Jul 27, 2017 23:41
[2017-07-28] VITALS (8 sets, daily range): BP systolic 113–147; BP diastolic 60–103
[2017-07-28] MEDS: Clindamycin 150mg cap ORAL SCH ×3 (05:33→18:03)
[2017-07-28] MEDS: dilTIAZem HCl 60mg tab ORAL SCH ×3 (06:00→20:44)
[2017-07-28 06:24] LABS: HEMATOCRIT 26.6 % (42.0-52.0); HEMOGLOBIN 8.8 G/DL (14.2-18.0); MEAN CORPUSCULAR VOLUME 100 FL (80-99); PLATELET COUNT 83 K/UL (150-450); RED BLOOD COUNT 2.67 M/UL (4.70-6.10); RED CELL DISTRIBUTION WIDTH 13.7 % (11.6-14.8); WHITE BLOOD COUNT 4.7 K/UL (4.8-10.8)
[2017-07-28 06:33] LABS: % IRON SATURATION 22 % (15-50); IRON 43 ug/dL (50-175); TOTAL IRON BINDING CAPACITY 194 ug/dL (250-450)
[2017-07-28 06:40] LABS: ALANINE AMINOTRANSFERASE 12 U/L (12-78); ALBUMIN 2.6 G/DL (3.4-5.0); ALBUMIN/GLOBULIN RATIO 0.6 (1.0-2.7); ALKALINE PHOSPHATASE 176 U/L (46-116); ANION GAP 16 mmol/L (5-15); ASPARTATE AMINO TRANSFERASE 28 U/L (15-37); BLOOD UREA NITROGEN 64 mg/dL (7-18); CALCIUM 8.8 MG/DL (8.5-10.1); CARBON DIOXIDE 25 MMOL/L (21-32); CHLORIDE 96 MMOL/L (98-107); CREATININE 12.2 MG/DL (0.55-1.30); POTASSIUM 5.3 MMOL/L (3.5-5.1); SODIUM 137 MMOL/L (136-145)
[2017-07-28] MEDS: Lisinopril 20mg tab ORAL SCH ×2 (08:22→20:43)
[2017-07-28] MEDS: Eliquis 2.5mg tablet ORAL SCH (08:27)
--- NOTE | 2017-07-28 11:16 | Internal Med Progress Note ---
Subjective Date of Service: Jul 28, 2017 Physician Name Zoey Pires Attending Physician Chaitanya Weinstein MD Current Medications Medications (Trade) Dose Ordered Sig/Jose Route PRN Reason Start Time Stop Time Status Last Admin Dose Admin Alprazolam (Xanax) 2 mg DAILYPRN PRN ORAL For Anxiety 07/23/17 19:15 07/30/17 19:14 07/27/17 17:59 Amikacin Protocol (Amikacin pharmacy to dose) 1 ea DAILY PRN MISC Per rx protocol 07/16/17 09:00 08/03/17 15:14 Amikacin Sulfate 500 mg/Dextrose 112 ml @ 224 mls/hr FRI-FRI-FRI IV 07/25/17 21:00 08/01/17 20:59 07/25/17 22:05 Apixaban (Eliquis) 2.5 mg Q12HR ORAL 07/16/17 09:00 08/15/17 08:59 07/26/17 07:46 Carisoprodol (Soma) 350 mg Q6H PRN ORAL Muscle Spasm 07/18/17 15:30 08/17/17 15:29 07/28/17 04:24 Chlorhexidine Gluconate (Mireille-Hex 2%) 1 applic DAILY@2000 TOPIC 07/15/17 20:00 08/02/17 19:59 07/27/17 20:16 Clindamycin HCl (Cleocin) 450 mg EVERY 6 HOURS ORAL 07/24/17 12:00 09/04/17 11:59 07/28/17 05:33 Dextrose (Dextrose 50%) 25 ml STAT PRN IV HYPOGLYCEMIA 07/16/17 08:30 08/08/17 08:29 Diltiazem HCl (Cardizem) 60 mg Q8HR ORAL 07/22/17 22:00 08/21/17 21:59 07/27/17 23:18 Ethambutol HCl (Myambutol) 1,000 mg 3XW@2100 ORAL 07/23/17 21:00 08/22/17 20:59 07/25/17 21:14 Hydromorphone HCl (Dilaudid) 2 mg Q4H PRN IVP Severe Pain (Pain Scale 7-10) 07/23/17 21:30 07/30/17 21:29 07/28/17 08:22 Levofloxacin (Levaquin) 750 mg EVERY OTHER DAY@1999 ORAL 07/23/17 20:00 07/30/17 19:59 07/27/17 20:17 Lisinopril (Prinivil) 20 mg Q12HR ORAL 07/16/17 09:00 08/15/17 08:59 07/28/17 08:22 Metoprolol Tartrate (Lopressor) 100 mg Q12HR ORAL 07/15/17 21:00 08/10/17 20:59 07/27/17 20:18 Ondansetron HCl (Zofran) 4 mg Q6H PRN IVP Nausea & Vomiting 07/18/17 15:30 08/17/17 15:29 07/28/17 01:19 Pantoprazole (Protonix) 40 mg BID ORAL 07/27/17 18:00 08/26/17 17:59 07/28/17 08:21 Allergies: Coded Allergies: IODINE AND IODIDE CONTAINING PRODUC (Verified Allergy, Mild, itching and pruritis, 06/25/17) Uncoded Allergies: CONTRAST/DYE (Allergy, Intermediate, PRURITIS AND ITCHING, 06/25/17) ROS Limited/Unobtainable: No Constitutional: Reports: no symptoms HEENT: Reports: no symptoms Cardiovascular: Reports: no symptoms Respiratory: Reports: no symptoms Gastrointestinal/Abdominal: Reports: no symptoms Genitourinary: Reports: no symptoms Neurologic/Psychiatric: Reports: no symptoms Subjective 57 YO M admitted with chest pain and shortness of breath. Now pneumonia and candelaria heart failure. Back on nasal canula. Cover for Int Misbah-Dr Weinstein. Now atrial flutter Objective Last Vital Signs Date Time Temp Pulse Resp B/P (MAP) Pulse Ox O2 Delivery O2 Flow Rate FiO2 07/28/17 08:52 98.5 07/28/17 08:27 70 120/68 07/28/17 08:00 18 97 Room Air 07/27/17 20:23 2.0 28 Laboratory Tests Test 07/28/17 05:40 White Blood Count 4.7 K/UL (4.8-10.8) L Red Blood Count 2.67 M/UL (4.70-6.10) L Hemoglobin 8.8 G/DL (14.2-18.0) L Hematocrit 26.6 % (42.0-52.0) L Mean Corpuscular Volume 100 FL (80-99) H Mean Corpuscular Hemoglobin 33.0 PG (27.0-31.0) H Mean Corpuscular Hemoglobin Concent 33.1 G/DL (32.0-36.0) Red Cell Distribution Width 13.7 % (11.6-14.8) Platelet Count 83 K/UL (150-450) L Mean Platelet Volume 7.9 FL (6.5-10.1) Neutrophils (%) (Auto) % (45.0-75.0) Lymphocytes (%) (Auto) % (20.0-45.0) Monocytes (%) (Auto) % (1.0-10.0) Eosinophils (%) (Auto) % (0.0-3.0) Basophils (%) (Auto) % (0.0-2.0) Differential Total Cells Counted 100 Neutrophils % (Manual) 45 % (45-75) Lymphocytes % (Manual) 28 % (20-45) Monocytes % (Manual) 15 % (1-10) H Eosinophils % (Manual) 12 % (0-3) H Basophils % (Manual) 0 % (0-2) Band Neutrophils 0 % (0-8) Platelet Estimate Decreased L Platelet Morphology Normal Hypochromasia 1+ Macrocytosis 1+ Sodium Level 137 MMOL/L (136-145) Potassium Level 5.3 MMOL/L (3.5-5.1) H Chloride Level 96 MMOL/L (98-107) L Carbon Dioxide Level 25 MMOL/L (21-32) Anion Gap 16 mmol/L (5-15) H Blood Urea Nitrogen 64 mg/dL (7-18) H Creatinine 12.2 MG/DL (0.55-1.30) H Estimat Glomerular Filtration Rate 5.2 mL/min (>60) Glucose Level 90 MG/DL (74-106) Calcium Level 8.8 MG/DL (8.5-10.1) Iron Level 43 ug/dL (50-175) L Total Iron Binding Capacity 194 ug/dL (250-450) L Percent Iron Saturation 22 % (15-50) Unsaturated Iron Binding 151 ug/dL (112-346) Total Bilirubin 1.0 MG/DL (0.2-1.0) Aspartate Amino Transf (AST/SGOT) 28 U/L (15-37) Alanine Aminotransferase (ALT/SGPT) 12 U/L (12-78) Alkaline Phosphatase 176 U/L (46-116) H Pro-B-Type Natriuretic Peptide 98881 pg/mL (0-125) H Total Protein 7.3 G/DL (6.4-8.2) Albumin 2.6 G/DL (3.4-5.0) L Globulin 4.7 g/dL Albumin/Globulin Ratio 0.6 (1.0-2.7) L Intake and Output 07/27/17 07/28/17 19:00 07:00 Intake Total 360 ml Output Total 0 ml Balance 360 ml Intake Oral 360 ml Output Urine Total 0 ml # Voids 3 # Bowel Movements 1 Objective General Appearance: WD/WN, alert, moderate distress EENT: PERRL/EOMI, normal ENT inspection Neck: non-tender, normal alignment, supple, normal inspection Cardiovascular: Tachycardia; normal peripheral pulses, normal rate, regular rhythm, no gallop/murmur, no JVD Respiratory/Chest: Nasal canula; respiratory distress, crackles/rales, rhonchi - bilaterally, expiratory wheezing Abdomen: normal bowel sounds, non tender, soft, no organomegaly, no mass Extremities: normal range of motion 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 (2) Respiratory failure Assessment & Plan: CHF and Pneumonia. Currently on nasal canula. See pulmonay note. (3) Pleuritic chest pain (4) Hemoptysis Assessment & Plan: Due to pneumonia (5) Pneumonia Assessment & Plan: Providencia and pseudamonas. RUL. AFB cultures negative- see ID consult. Continue ethambutol, amikacin, levaquin and clindamycin per ID (6) Shortness of breath (7) ESRD (end stage renal disease) on dialysis Assessment & Plan: See nephrology note. Next Hemodialysis 07/28/17 per nephrology (8) Hyperkalemia Assessment & Plan: Due to renal failure. Hemodialysis 06/13/17 per nephrology (9) COPD (chronic obstructive pulmonary disease) (10) HTN (hypertension) Assessment & Plan: Continue coreg and lisinopril. (11) CHF (congestive heart failure) (12) Elevated troponin Assessment & Plan: ?due to renal failure? See cardiology note. (13) Intractable abdominal pain Assessment & Plan: See surgery note (14) Conjunctivitis Assessment & Plan: start tobramycin (15) Diarrhea Assessment & Plan: C. Diff Assessment/Plan Discharge planning - [facility] ZOEY PIRES Jul 28, 2017 11:16
--- NOTE | 2017-07-28 12:15 | Diagnostic Imaging Report ---
Indication: Abdominal pain, anemia Technique: Patient ingested effervescent granules, oral thickened and liquid barium, and rapid sequence spot images, static spot images, and overhead films were obtained Comparison: none Findings: Exam is limited, as patient expelled most of the ingested gas before the stomach could be imaged. The esophagus demonstrates mild dysmotility, no evidence of ulceration, stricture, filling defect, or mass. There is a small sliding-type hiatal hernia. The stomach is incompletely distended. No gross filling defects, ulcerations, or masses demonstrated. Duodenal bulb and sweep are grossly unremarkable, although evaluation is limited due to poor distention by air. Impression: Limited exam, as described Mild esophageal dysmotility No definite significant abnormality otherwise
--- NOTE | 2017-07-28 12:21 | Infectious Diseases Prog Note ---
Assessment/Plan Assessment/Plan Cavitary PNA. SCx: Neg ( m/l anaerobic abscess than necrotizing Pneum , doubt TB or fungal ) ; improving - 07/09 SP BAL Cx( Abby and MOJGAN : Colonizers ) , Path : Neg for fungus and Malignancy - -CT 07/15 : The overall lesion appears smaller, measuring 6.3 cm AP by 3.6 cm transverse by 2.3 cm craniocaudad currently -CT chest 06/25: Since the prior study of 06/15/2017, and. From further reduction in size of previously demonstrated thick walled right upper lobe cavitary mass. This was previously thought to most likely represent a cavitary inflammatory mass, and the interim reduction in size certainly supports that. Much less likely a cavitary neoplasm, but follow-up to resolution is recommended. Markedly improved parenchymal disease bilaterally, since the previous study. Nonetheless , extensive atelectasis and groundglass consolidation persists. Persistent small right pleural effusion, smaller than on the prior study. Resolved left pleural effusion 6 mm nodular opacity in the right upper lobe, not evident previously but likely obscured by surrounding consolidated lung parenchyma. This should be followed up in 6 months to one year depending on results of interim follow-up exams T-SPOT :Neg Culture and stain AFB x 3 : Neg MTB PCR x2 : neg cryptococcus Ag, Histoplams mycelial Ab , Blastomyces ab : neg ; histoplasma yeast ab (not able to be done due to anticomplementary activity) -Cocci, Asp ag p -Fungitell + 144 (?aspergillosis vs m/l false positive) CT chest 06/15: Slightly smaller (6 cm diameter ) but mostly unchanged cavitary lesion in the right lung, previously thought to represent a cavitating inflammatory process. Lung abscess is certainly a possibility. Fairly extensive bilateral pulmonary parenchymal consolidation, slightly increased from previous exam of 06/05/2017. Likely a combination of pulmonary edema and pneumonia. Small right and trace left pleural effusion, new/increased from the previous study. CT 06/05: 7.8 x 5.3 x 6.6 cm dense opacity in the posterior inferior right upper lobe with a central cavitation. CRP 14 Influenza negative Coccidioidal ,Galactomannan : NEG ( PER LAB ) Transaminitis , improved after stopping rifampin 2/2 Hep C cirrhosis- no active Hep C as VL not detected -CT abd/p: Evidence of hepatic cirrhosis. Hepatosplenomegaly. evidence of generalized anasarca, with pleural fluid and generalized subcutaneous edema. Cholelithiasis, also previously reported. Possible diverticulosis. No evidence of diverticulitis US Abd : Cholelithiasis. There is gallbladder wall thickening, likely related to hemodynamic abnormalities Splenomegaly. Evidence of hepatic cirrhosis HIV : NEG Hep Panel B neg , C Ab : +ve , VL not detected leukopenia and TCP 2/2 splenomegaly Seizure disorder History of CVA History of pacemaker placement Hyperlipidemia Hypertension COPD/asthma End-stage renal disease, on hemodialysis Diabetes Anxiety Anemia Echo, ejection fraction 45% to 50%. PLAN: - Cont oral Clinda d# 12 ( till resolution/ stabilization of abscess) ( abx d# 51 ) Continue Ethambutol and Levaquin, Amikacin ( empiric TB AB Rx d# 41 TB control they want to cont TB Meds regardless of AFB Cultures Neg x 3 (called : 07/22 ) ) 07/16 SP Zoysn d# 9 ( for SOB and CXR worsen , better coverage of anaerobes, PSA and Providencia ); 07/07 Flagyl 07/06 SP Voriconazole ( low antonio for fungal infection , and in the setting of cirrhosis ) 07/05 SP Micafungin abx d#20 , Rifampin 600mg qd #10 07/01 SP Ceftriaxone #10 06/28 SP Amikacin #15 06/25 SP PO Voriconazole #3 06/20 SP Liposomal Ampho #8 06/17 SP IV Vancomycin #14, Meropenem #5 06/13 SP Zosyn d# 10 3 SP Zithromax D# 6 BAL fungal and AFB Cx : P - CMP Subjective Allergies: Coded Allergies: IODINE AND IODIDE CONTAINING PRODUC (Verified Allergy, Mild, itching and pruritis, 06/25/17) Uncoded Allergies: CONTRAST/DYE (Allergy, Intermediate, PRURITIS AND ITCHING, 06/25/17) Subjective afebrile no leukocytosis Tbili 1.7, dept of public health recommends switching rifampin back to amikacin Objective Vital Signs Last 24 Hour Vital Signs Date Time Temp Pulse Resp B/P (MAP) Pulse Ox O2 Delivery O2 Flow Rate FiO2 07/28/17 08:52 98.5 07/28/17 08:27 70 120/68 07/28/17 08:22 98.5 07/28/17 08:22 120/68 07/28/17 08:00 98.3 70 18 120/68 97 Room Air 98.3 07/28/17 06:00 72 127/103 07/28/17 04:00 98.5 72 20 127/103 92 98.5 07/28/17 00:00 98.4 78 20 113/64 97 98.4 07/27/17 23:18 75 113/66 07/27/17 20:23 95 Nasal Cannula 2.0 28 07/27/17 20:23 Nasal Cannula 2.0 28 07/27/17 20:18 64 123/73 07/27/17 20:18 123/73 07/27/17 20:00 98.0 64 19 123/73 98.0 07/27/17 16:13 98.6 07/27/17 16:00 97.8 67 20 109/58 95 Nasal Cannula 2.0 97.8 07/27/17 15:14 98.6 07/27/17 14:15 98.6 07/27/17 14:11 65 118/79 Height (Feet): 5 Height (Inches): 7.00 Weight (Pounds): 214 Objective General Appearance: WD/WN, alert, moderate distress EENT: PERRL/EOMI, normal ENT inspection Neck: non-tender, normal alignment, supple, normal inspection Cardiovascular: normal peripheral pulses, normal rate, regular rhythm, no gallop/murmur, no JVD Respiratory/Chest: Non rebreather; respiratory distress, crackles/rales, rhonchi - bilaterally, expiratory wheezing Abdomen: normal bowel sounds, non tender, soft, no organomegaly, no mass Extremities: normal range of motion 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, no motor/sensory deficits Skin: normal pigmentation, warm/dry Laboratory Tests Test 07/28/17 05:40 White Blood Count 4.7 K/UL (4.8-10.8) L Red Blood Count 2.67 M/UL (4.70-6.10) L Hemoglobin 8.8 G/DL (14.2-18.0) L Hematocrit 26.6 % (42.0-52.0) L Mean Corpuscular Volume 100 FL (80-99) H Mean Corpuscular Hemoglobin 33.0 PG (27.0-31.0) H Mean Corpuscular Hemoglobin Concent 33.1 G/DL (32.0-36.0) Red Cell Distribution Width 13.7 % (11.6-14.8) Platelet Count 83 K/UL (150-450) L Mean Platelet Volume 7.9 FL (6.5-10.1) Neutrophils (%) (Auto) % (45.0-75.0) Lymphocytes (%) (Auto) % (20.0-45.0) Monocytes (%) (Auto) % (1.0-10.0) Eosinophils (%) (Auto) % (0.0-3.0) Basophils (%) (Auto) % (0.0-2.0) Differential Total Cells Counted 100 Neutrophils % (Manual) 45 % (45-75) Lymphocytes % (Manual) 28 % (20-45) Monocytes % (Manual) 15 % (1-10) H Eosinophils % (Manual) 12 % (0-3) H Basophils % (Manual) 0 % (0-2) Band Neutrophils 0 % (0-8) Platelet Estimate Decreased L Platelet Morphology Normal Hypochromasia 1+ Macrocytosis 1+ Sodium Level 137 MMOL/L (136-145) Potassium Level 5.3 MMOL/L (3.5-5.1) H Chloride Level 96 MMOL/L (98-107) L Carbon Dioxide Level 25 MMOL/L (21-32) Anion Gap 16 mmol/L (5-15) H Blood Urea Nitrogen 64 mg/dL (7-18) H Creatinine 12.2 MG/DL (0.55-1.30) H Estimat Glomerular Filtration Rate 5.2 mL/min (>60) Glucose Level 90 MG/DL (74-106) Calcium Level 8.8 MG/DL (8.5-10.1) Iron Level 43 ug/dL (50-175) L Total Iron Binding Capacity 194 ug/dL (250-450) L Percent Iron Saturation 22 % (15-50) Unsaturated Iron Binding 151 ug/dL (112-346) Total Bilirubin 1.0 MG/DL (0.2-1.0) Aspartate Amino Transf (AST/SGOT) 28 U/L (15-37) Alanine Aminotransferase (ALT/SGPT) 12 U/L (12-78) Alkaline Phosphatase 176 U/L (46-116) H Pro-B-Type Natriuretic Peptide 73043 pg/mL (0-125) H Total Protein 7.3 G/DL (6.4-8.2) Albumin 2.6 G/DL (3.4-5.0) L Globulin 4.7 g/dL Albumin/Globulin Ratio 0.6 (1.0-2.7) L Current Medications Medications (Trade) Dose Ordered Sig/Jose Route PRN Reason Start Time Stop Time Status Last Admin Dose Admin Alprazolam (Xanax) 2 mg DAILYPRN PRN ORAL For Anxiety 07/23/17 19:15 07/30/17 19:14 07/27/17 17:59 Amikacin Protocol (Amikacin pharmacy to dose) 1 ea DAILY PRN MISC Per rx protocol 07/16/17 09:00 08/03/17 15:14 Amikacin Sulfate 500 mg/Dextrose 112 ml @ 224 mls/hr FRI-FRI-FRI IV 07/25/17 21:00 08/01/17 20:59 07/25/17 22:05 Apixaban (Eliquis) 2.5 mg Q12HR ORAL 07/16/17 09:00 08/15/17 08:59 07/26/17 07:46 Carisoprodol (Soma) 350 mg Q6H PRN ORAL Muscle Spasm 07/18/17 15:30 08/17/17 15:29 07/28/17 04:24 Chlorhexidine Gluconate (Mireille-Hex 2%) 1 applic DAILY@2000 TOPIC 07/15/17 20:00 08/02/17 19:59 07/27/17 20:16 Clindamycin HCl (Cleocin) 450 mg EVERY 6 HOURS ORAL 07/24/17 12:00 09/04/17 11:59 07/28/17 05:33 Dextrose (Dextrose 50%) 25 ml STAT PRN IV HYPOGLYCEMIA 07/16/17 08:30 08/08/17 08:29 Diltiazem HCl (Cardizem) 60 mg Q8HR ORAL 07/22/17 22:00 08/21/17 21:59 07/27/17 23:18 Ethambutol HCl (Myambutol) 1,000 mg 3XW@2100 ORAL 07/23/17 21:00 08/22/17 20:59 07/25/17 21:14 Hydromorphone HCl (Dilaudid) 2 mg Q4H PRN IVP Severe Pain (Pain Scale 7-10) 07/23/17 21:30 07/30/17 21:29 07/28/17 08:22 Levofloxacin (Levaquin) 750 mg EVERY OTHER DAY@2000 ORAL 07/23/17 20:00 07/30/17 19:59 07/27/17 20:17 Lisinopril (Prinivil) 20 mg Q12HR ORAL 07/16/17 09:00 08/15/17 08:59 07/28/17 08:22 Metoprolol Tartrate (Lopressor) 100 mg Q12HR ORAL 07/15/17 21:00 08/10/17 20:59 07/27/17 20:18 Ondansetron HCl (Zofran) 4 mg Q6H PRN IVP Nausea & Vomiting 07/18/17 15:30 08/17/17 15:29 07/28/17 01:19 Pantoprazole (Protonix) 40 mg BID ORAL 07/27/17 18:00 08/26/17 17:59 07/28/17 08:21 Aleja Crocker M.D. Jul 28, 2017 12:20
--- NOTE | 2017-07-28 12:34 | Diagnostic Imaging Report ---
Indication: Dyspnea Technique: One view of the chest Comparison: 07/21/2017 Findings: Bilateral interstitial and airspace disease, mostly in the former, again demonstrated, unchanged. Right midlung cavitary lesion is less evident, appears to demonstrate thinner donaldson and slightly larger central cavity Left chest unifocal AICD, right jugular central venous catheter again demonstrated. The heart is enlarged. The aorta is tortuous. Impression: Possibly improving right lung cavitary lesion, over 7 days Otherwise unchanged findings as described.
--- NOTE | 2017-07-28 12:51 | Pulmonology Progress Note ---
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 chaparro again, tb control insisting on TB medication although, cultures are negative continue current meds TB control insist on continuing TB meds Subjective ROS Limited/Unobtainable: No Interval Events: late note for 07/27 Allergies: Coded Allergies: IODINE AND IODIDE CONTAINING PRODUC (Verified Allergy, Mild, itching and pruritis, 06/25/17) Uncoded Allergies: CONTRAST/DYE (Allergy, Intermediate, PRURITIS AND ITCHING, 06/25/17) Objective Last 24 Hour Vital Signs Date Time Temp Pulse Resp B/P (MAP) Pulse Ox O2 Delivery O2 Flow Rate FiO2 07/28/17 12:13 98.5 07/28/17 12:00 98.3 67 19 132/79 97 Nasal Cannula 98.3 07/28/17 08:52 98.5 07/28/17 08:27 70 120/68 07/28/17 08:22 98.5 07/28/17 08:22 120/68 07/28/17 08:00 98.3 70 18 120/68 97 Room Air 98.3 07/28/17 06:00 72 127/103 07/28/17 04:00 98.5 72 20 127/103 92 98.5 07/28/17 00:00 98.4 78 20 113/64 97 98.4 07/27/17 23:18 75 113/66 07/27/17 20:23 95 Nasal Cannula 2.0 28 07/27/17 20:23 Nasal Cannula 2.0 28 07/27/17 20:18 64 123/73 07/27/17 20:18 123/73 07/27/17 20:00 98.0 64 19 123/73 98.0 07/27/17 16:13 98.6 07/27/17 16:00 97.8 67 20 109/58 95 Nasal Cannula 2.0 97.8 07/27/17 15:14 98.6 07/27/17 14:15 98.6 07/27/17 14:11 65 118/79 Intake and Output 07/27/17 07/28/17 19:00 07:00 Intake Total 360 ml Output Total 0 ml Balance 360 ml Intake Oral 360 ml Output Urine Total 0 ml # Voids 3 # Bowel Movements 1 Objective General Appearance: WD/WN HEENT: normocephalic, atraumatic, anicteric Respiratory/Chest: loud rhonchi Cardiovascular: normal peripheral pulses, normal rate, regular rhythm Abdomen: normal bowel sounds, soft, non tender, no organomegaly Genitourinary: normal external genitalia Extremities: no cyanosis Skin: no rash, no lesions 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, no motor/sensory deficits Lymphatic: no neck adenopathy, no groin adenopathy Laboratory Tests 07/28/17 05:40: White Blood Count 4.7L, Red Blood Count 2.67L, Hemoglobin 8.8L, Hematocrit 26.6L , Mean Corpuscular Volume 100H, Mean Corpuscular Hemoglobin 33.0H, Mean Corpuscular Hemoglobin Concent 33.1, Red Cell Distribution Width 13.7, Platelet Count 83L, Mean Platelet Volume 7.9, Neutrophils (%) (Auto) , Lymphocytes (%) ( Auto) , Monocytes (%) (Auto) , Eosinophils (%) (Auto) , Basophils (%) (Auto) , Differential Total Cells Counted 100, Neutrophils % (Manual) 45, Lymphocytes % ( Manual) 28, Monocytes % (Manual) 15H, Eosinophils % (Manual) 12H, Basophils % ( Manual) 0, Band Neutrophils 0, Platelet Estimate DecreasedL, Platelet Morphology Normal, Hypochromasia 1+, Macrocytosis 1+, Sodium Level 137, Potassium Level 5.3H, Chloride Level 96L, Carbon Dioxide Level 25, Anion Gap 16H , Blood Urea Nitrogen 64H, Creatinine 12.2H, Estimat Glomerular Filtration Rate 5.2, Glucose Level 90, Calcium Level 8.8, Iron Level 43L, Total Iron Binding Capacity 194L, Percent Iron Saturation 22, Unsaturated Iron Binding 151, Total Bilirubin 1.0, Aspartate Amino Transf (AST/SGOT) 28, Alanine Aminotransferase ( ALT/SGPT) 12, Alkaline Phosphatase 176H, Pro-B-Type Natriuretic Peptide 29366O, Total Protein 7.3, Albumin 2.6L, Globulin 4.7, Albumin/Globulin Ratio 0.6L Current Medications Medications (Trade) Dose Ordered Sig/Jose Route PRN Reason Start Time Stop Time Status Last Admin Dose Admin Alprazolam (Xanax) 2 mg DAILYPRN PRN ORAL For Anxiety 07/23/17 19:15 07/30/17 19:14 07/27/17 17:59 Amikacin Protocol (Amikacin pharmacy to dose) 1 ea DAILY PRN MISC Per rx protocol 07/16/17 09:00 08/03/17 15:14 Amikacin Sulfate 500 mg/Dextrose 112 ml @ 224 mls/hr FRI-FRI-FRI IV 07/25/17 21:00 08/01/17 20:59 07/25/17 22:05 Apixaban (Eliquis) 2.5 mg Q12HR ORAL 07/16/17 09:00 08/15/17 08:59 07/26/17 07:46 Carisoprodol (Soma) 350 mg Q6H PRN ORAL Muscle Spasm 07/18/17 15:30 08/17/17 15:29 07/28/17 04:24 Chlorhexidine Gluconate (Mireille-Hex 2%) 1 applic DAILY@1999 TOPIC 07/15/17 20:00 08/02/17 19:59 07/27/17 20:16 Clindamycin HCl (Cleocin) 450 mg EVERY 6 HOURS ORAL 07/24/17 12:00 09/04/17 11:59 07/28/17 12:13 Dextrose (Dextrose 50%) 25 ml STAT PRN IV HYPOGLYCEMIA 07/16/17 08:30 08/08/17 08:29 Diltiazem HCl (Cardizem) 60 mg Q8HR ORAL 07/22/17 22:00 08/21/17 21:59 07/27/17 23:18 Ethambutol HCl (Myambutol) 1,000 mg 3XW@2100 ORAL 07/23/17 21:00 08/22/17 20:59 07/25/17 21:14 Hydromorphone HCl (Dilaudid) 2 mg Q4H PRN IVP Severe Pain (Pain Scale 7-10) 07/23/17 21:30 07/30/17 21:29 07/28/17 12:13 Levofloxacin (Levaquin) 750 mg EVERY OTHER DAY@2000 ORAL 07/23/17 20:00 07/30/17 19:59 07/27/17 20:17 Lisinopril (Prinivil) 20 mg Q12HR ORAL 07/16/17 09:00 08/15/17 08:59 07/28/17 08:22 Metoprolol Tartrate (Lopressor) 100 mg Q12HR ORAL 07/15/17 21:00 08/10/17 20:59 07/27/17 20:18 Ondansetron HCl (Zofran) 4 mg Q6H PRN IVP Nausea & Vomiting 07/18/17 15:30 08/17/17 15:29 07/28/17 01:19 Pantoprazole (Protonix) 40 mg BID ORAL 07/27/17 18:00 08/26/17 17:59 07/28/17 08:21 Christine Morgan MD Jul 28, 2017 12:51
--- NOTE | 2017-07-28 12:52 | Pulmonology Progress Note ---
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 chaparro again, tb control insisting on TB medication although, cultures are negative continue current meds TB control insist on continuing TB meds Subjective ROS Limited/Unobtainable: No Interval Events: asymptomatic Allergies: Coded Allergies: IODINE AND IODIDE CONTAINING PRODUC (Verified Allergy, Mild, itching and pruritis, 06/25/17) Uncoded Allergies: CONTRAST/DYE (Allergy, Intermediate, PRURITIS AND ITCHING, 06/25/17) Objective Last 24 Hour Vital Signs Date Time Temp Pulse Resp B/P (MAP) Pulse Ox O2 Delivery O2 Flow Rate FiO2 07/28/17 12:13 98.5 07/28/17 12:00 98.3 67 19 132/79 97 Nasal Cannula 98.3 07/28/17 08:52 98.5 07/28/17 08:27 70 120/68 07/28/17 08:22 98.5 07/28/17 08:22 120/68 07/28/17 08:00 98.3 70 18 120/68 97 Room Air 98.3 07/28/17 06:00 72 127/103 07/28/17 04:00 98.5 72 20 127/103 92 98.5 07/28/17 00:00 98.4 78 20 113/64 97 98.4 07/27/17 23:18 75 113/66 07/27/17 20:23 95 Nasal Cannula 2.0 28 07/27/17 20:23 Nasal Cannula 2.0 28 07/27/17 20:18 64 123/73 07/27/17 20:18 123/73 07/27/17 20:00 98.0 64 19 123/73 98.0 07/27/17 16:13 98.6 07/27/17 16:00 97.8 67 20 109/58 95 Nasal Cannula 2.0 97.8 07/27/17 15:14 98.6 07/27/17 14:15 98.6 07/27/17 14:11 65 118/79 Intake and Output 07/27/17 07/28/17 19:00 07:00 Intake Total 360 ml Output Total 0 ml Balance 360 ml Intake Oral 360 ml Output Urine Total 0 ml # Voids 3 # Bowel Movements 1 Objective General Appearance: WD/WN HEENT: normocephalic, atraumatic, anicteric Respiratory/Chest: loud rhonchi Cardiovascular: normal peripheral pulses, normal rate, regular rhythm Abdomen: normal bowel sounds, soft, non tender, no organomegaly Genitourinary: normal external genitalia Extremities: no cyanosis Skin: no rash, no lesions 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, no motor/sensory deficits Lymphatic: no neck adenopathy, no groin adenopathy Laboratory Tests 07/28/17 05:40: White Blood Count 4.7L, Red Blood Count 2.67L, Hemoglobin 8.8L, Hematocrit 26.6L , Mean Corpuscular Volume 100H, Mean Corpuscular Hemoglobin 33.0H, Mean Corpuscular Hemoglobin Concent 33.1, Red Cell Distribution Width 13.7, Platelet Count 83L, Mean Platelet Volume 7.9, Neutrophils (%) (Auto) , Lymphocytes (%) ( Auto) , Monocytes (%) (Auto) , Eosinophils (%) (Auto) , Basophils (%) (Auto) , Differential Total Cells Counted 100, Neutrophils % (Manual) 45, Lymphocytes % ( Manual) 28, Monocytes % (Manual) 15H, Eosinophils % (Manual) 12H, Basophils % ( Manual) 0, Band Neutrophils 0, Platelet Estimate DecreasedL, Platelet Morphology Normal, Hypochromasia 1+, Macrocytosis 1+, Sodium Level 137, Potassium Level 5.3H, Chloride Level 96L, Carbon Dioxide Level 25, Anion Gap 16H , Blood Urea Nitrogen 64H, Creatinine 12.2H, Estimat Glomerular Filtration Rate 5.2, Glucose Level 90, Calcium Level 8.8, Iron Level 43L, Total Iron Binding Capacity 194L, Percent Iron Saturation 22, Unsaturated Iron Binding 151, Total Bilirubin 1.0, Aspartate Amino Transf (AST/SGOT) 28, Alanine Aminotransferase ( ALT/SGPT) 12, Alkaline Phosphatase 176H, Pro-B-Type Natriuretic Peptide 69970K, Total Protein 7.3, Albumin 2.6L, Globulin 4.7, Albumin/Globulin Ratio 0.6L Current Medications Medications (Trade) Dose Ordered Sig/Jose Route PRN Reason Start Time Stop Time Status Last Admin Dose Admin Alprazolam (Xanax) 2 mg DAILYPRN PRN ORAL For Anxiety 07/23/17 19:15 07/30/17 19:14 07/27/17 17:59 Amikacin Protocol (Amikacin pharmacy to dose) 1 ea DAILY PRN MISC Per rx protocol 07/16/17 09:00 08/03/17 15:14 Amikacin Sulfate 500 mg/Dextrose 112 ml @ 224 mls/hr FRI-FRI-FRI IV 07/25/17 21:00 08/01/17 20:59 07/25/17 22:05 Apixaban (Eliquis) 2.5 mg Q12HR ORAL 07/16/17 09:00 08/15/17 08:59 07/26/17 07:46 Carisoprodol (Soma) 350 mg Q6H PRN ORAL Muscle Spasm 07/18/17 15:30 08/17/17 15:29 07/28/17 04:24 Chlorhexidine Gluconate (Mireille-Hex 2%) 1 applic DAILY@2000 TOPIC 07/15/17 20:00 08/02/17 19:59 07/27/17 20:16 Clindamycin HCl (Cleocin) 450 mg EVERY 6 HOURS ORAL 07/24/17 12:00 09/04/17 11:59 07/28/17 12:13 Dextrose (Dextrose 50%) 25 ml STAT PRN IV HYPOGLYCEMIA 07/16/17 08:30 08/08/17 08:29 Diltiazem HCl (Cardizem) 60 mg Q8HR ORAL 07/22/17 22:00 08/21/17 21:59 07/27/17 23:18 Ethambutol HCl (Myambutol) 1,000 mg 3XW@2100 ORAL 07/23/17 21:00 08/22/17 20:59 07/25/17 21:14 Hydromorphone HCl (Dilaudid) 2 mg Q4H PRN IVP Severe Pain (Pain Scale 7-10) 07/23/17 21:30 07/30/17 21:29 07/28/17 12:13 Levofloxacin (Levaquin) 750 mg EVERY OTHER DAY@1999 ORAL 07/23/17 20:00 07/30/17 19:59 07/27/17 20:17 Lisinopril (Prinivil) 20 mg Q12HR ORAL 07/16/17 09:00 08/15/17 08:59 07/28/17 08:22 Metoprolol Tartrate (Lopressor) 100 mg Q12HR ORAL 07/15/17 21:00 08/10/17 20:59 07/27/17 20:18 Ondansetron HCl (Zofran) 4 mg Q6H PRN IVP Nausea & Vomiting 07/18/17 15:30 08/17/17 15:29 07/28/17 01:19 Pantoprazole (Protonix) 40 mg BID ORAL 07/27/17 18:00 08/26/17 17:59 07/28/17 08:21 Christine Morgan MD Jul 28, 2017 12:52
--- NOTE | 2017-07-28 16:30 | Nephrology Progress Note ---
Assessment/Plan Problem List: (1) ESRD (end stage renal disease) on dialysis (2) Shortness of breath (3) Anemia Assessment Anemia ESRD , missed HD on admission , admitted with high K and pulmonary edema Acute respiratory distress due to volume overload elevated troponin r/o ACS h/o COPD ? exacerbation HTN urgency Cardiomyopathy L AICD anemia of chronic kidney disease Hx of CVA Plan Plan: HD last 07/25- will care for high K with HD Next HD 07/28 Kayexelate PRN Max UF Transfused Phos binders BP meds adjustment Optimize cardiac status per orders Subjective ROS Limited/Unobtainable: No Constitutional: Reports: malaise Objective Objective Last 24 Hour Vital Signs Date Time Temp Pulse Resp B/P (MAP) Pulse Ox O2 Delivery O2 Flow Rate FiO2 07/28/17 16:12 97.0 07/28/17 15:50 97.0 63 20 125/60 97 Nasal Cannula 2.0 97.0 07/28/17 13:14 67 132/79 07/28/17 12:43 98.5 07/28/17 12:13 98.5 07/28/17 12:00 98.3 67 19 132/79 97 Nasal Cannula 98.3 07/28/17 08:27 70 120/68 07/28/17 08:22 98.5 07/28/17 08:22 120/68 07/28/17 08:00 98.3 70 18 120/68 97 Room Air 98.3 07/28/17 06:00 72 127/103 07/28/17 04:00 98.5 72 20 127/103 92 98.5 07/28/17 00:00 98.4 78 20 113/64 97 98.4 07/27/17 23:18 75 113/66 07/27/17 20:23 95 Nasal Cannula 2.0 28 07/27/17 20:23 Nasal Cannula 2.0 28 07/27/17 20:18 64 123/73 07/27/17 20:18 123/73 07/27/17 20:00 98.0 64 19 123/73 98.0 Intake and Output 07/27/17 07/28/17 19:00 07:00 Intake Total 360 ml Output Total 0 ml Balance 360 ml Intake Oral 360 ml Output Urine Total 0 ml # Voids 3 # Bowel Movements 1 Laboratory Tests 07/28/17 05:40: White Blood Count 4.7L, Red Blood Count 2.67L, Hemoglobin 8.8L, Hematocrit 26.6L , Mean Corpuscular Volume 100H, Mean Corpuscular Hemoglobin 33.0H, Mean Corpuscular Hemoglobin Concent 33.1, Red Cell Distribution Width 13.7, Platelet Count 83L, Mean Platelet Volume 7.9, Neutrophils (%) (Auto) , Lymphocytes (%) ( Auto) , Monocytes (%) (Auto) , Eosinophils (%) (Auto) , Basophils (%) (Auto) , Differential Total Cells Counted 100, Neutrophils % (Manual) 45, Lymphocytes % ( Manual) 28, Monocytes % (Manual) 15H, Eosinophils % (Manual) 12H, Basophils % ( Manual) 0, Band Neutrophils 0, Platelet Estimate DecreasedL, Platelet Morphology Normal, Hypochromasia 1+, Macrocytosis 1+, Sodium Level 137, Potassium Level 5.3H, Chloride Level 96L, Carbon Dioxide Level 25, Anion Gap 16H , Blood Urea Nitrogen 64H, Creatinine 12.2H, Estimat Glomerular Filtration Rate 5.2, Glucose Level 90, Calcium Level 8.8, Iron Level 43L, Total Iron Binding Capacity 194L, Percent Iron Saturation 22, Unsaturated Iron Binding 151, Total Bilirubin 1.0, Aspartate Amino Transf (AST/SGOT) 28, Alanine Aminotransferase ( ALT/SGPT) 12, Alkaline Phosphatase 176H, Pro-B-Type Natriuretic Peptide 13579O, Total Protein 7.3, Albumin 2.6L, Globulin 4.7, Albumin/Globulin Ratio 0.6L Height (Feet): 5 Height (Inches): 7.00 Weight (Pounds): 214 General Appearance: no apparent distress Objective no change LIAM MONTELONGO Jul 28, 2017 16:30
[2017-07-28] MEDS: ALPRAZolam 0.5mg tab ORAL PRN (18:03)
[2017-07-28] MEDS ORDERED: Sorbitol Solution UD 30ml ORAL SCH ×2 (19:00→21:00)
[2017-07-28] MEDS: Dyna-Hex 2% Top Sol 2oz TOPIC SCH (20:44)
[2017-07-28] MEDS: Amikacin 500 MG in D5W 110 ML IV SCH (21:00)
--- NOTE | 2017-07-28 21:31 | General Progress Note ---
Assessment/Plan Assessment/Plan Assessment - gallstones - abnormal LFT / cirrhosis - Periodic N/V with abnormal GB ultrasound, ? possibly biliary colic - patient declined HIDA - Anemia, multifactorial - OB (+) Stool - EGD / Colonoscopy scheduled for - ESRD/HD - DM - HTN - COPD - Cavitary lung disease - Thrombocytopenia - cirrhotic appearing liver on CT - Hepatitis C Ab (+)/ PCR (-) - Poor prognosis Recommendations - PO as tolerated - follow symptoms and exam - monitor LFT - avoid hepatotoxic meds - BID PPI - monitor CBC - anticoagulation on hold for EGD/Colonoscopy - abx per ID Subjective Allergies: Coded Allergies: IODINE AND IODIDE CONTAINING PRODUC (Verified Allergy, Mild, itching and pruritis, 06/25/17) Uncoded Allergies: CONTRAST/DYE (Allergy, Intermediate, PRURITIS AND ITCHING, 06/25/17) Subjective H&H lower again today UGI ordered --> negative, but low quality study patient now agreeable to EGD/Colon for OB (+) and anemia Eliquis d/c'd EGD / Colonoscopy scheduled for Objective Last 24 Hour Vital Signs Date Time Temp Pulse Resp B/P (MAP) Pulse Ox O2 Delivery O2 Flow Rate FiO2 07/28/17 20:44 79 147/83 07/28/17 20:44 79 147/83 07/28/17 20:43 147/83 07/28/17 20:00 98.0 79 20 147/83 96 98.0 07/28/17 18:00 Room Air 07/28/17 18:00 98.0 79 24 146/87 Room Air 98.0 07/28/17 16:42 97.0 07/28/17 16:12 97.0 07/28/17 15:50 97.0 63 20 125/60 97 Nasal Cannula 2.0 97.0 07/28/17 13:14 67 132/79 07/28/17 12:13 98.5 07/28/17 12:00 98.3 67 19 132/79 97 Nasal Cannula 98.3 07/28/17 08:27 70 120/68 07/28/17 08:22 98.5 07/28/17 08:22 120/68 07/28/17 08:00 98.3 70 18 120/68 97 Room Air 98.3 07/28/17 06:00 72 127/103 07/28/17 04:00 98.5 72 20 127/103 92 98.5 07/28/17 00:00 98.4 78 20 113/64 97 98.4 07/27/17 23:18 75 113/66 Intake and Output 07/27/17 07/28/17 19:00 07:00 Intake Total 360 ml Output Total 0 ml Balance 360 ml Intake Oral 360 ml Output Urine Total 0 ml # Voids 3 # Bowel Movements 1 Laboratory Tests 07/28/17 05:40: White Blood Count 4.7L, Red Blood Count 2.67L, Hemoglobin 8.8L, Hematocrit 26.6L , Mean Corpuscular Volume 100H, Mean Corpuscular Hemoglobin 33.0H, Mean Corpuscular Hemoglobin Concent 33.1, Red Cell Distribution Width 13.7, Platelet Count 83L, Mean Platelet Volume 7.9, Neutrophils (%) (Auto) , Lymphocytes (%) ( Auto) , Monocytes (%) (Auto) , Eosinophils (%) (Auto) , Basophils (%) (Auto) , Differential Total Cells Counted 100, Neutrophils % (Manual) 45, Lymphocytes % ( Manual) 28, Monocytes % (Manual) 15H, Eosinophils % (Manual) 12H, Basophils % ( Manual) 0, Band Neutrophils 0, Platelet Estimate DecreasedL, Platelet Morphology Normal, Hypochromasia 1+, Macrocytosis 1+, Sodium Level 137, Potassium Level 5.3H, Chloride Level 96L, Carbon Dioxide Level 25, Anion Gap 16H , Blood Urea Nitrogen 64H, Creatinine 12.2H, Estimat Glomerular Filtration Rate 5.2, Glucose Level 90, Calcium Level 8.8, Iron Level 43L, Total Iron Binding Capacity 194L, Percent Iron Saturation 22, Unsaturated Iron Binding 151, Total Bilirubin 1.0, Aspartate Amino Transf (AST/SGOT) 28, Alanine Aminotransferase ( ALT/SGPT) 12, Alkaline Phosphatase 176H, Pro-B-Type Natriuretic Peptide 17269U, Total Protein 7.3, Albumin 2.6L, Globulin 4.7, Albumin/Globulin Ratio 0.6L Height (Feet): 5 Height (Inches): 7.00 Weight (Pounds): 214 Objective WDWN AA Man NCAT supple CTA RRR Soft mildly distended, (+) trunk edema (++) leg edema KHORRAMI,PAYMAN Jul 28, 2017 21:31
--- NOTE | 2017-07-28 23:56 | General Progress Note ---
Assessment/Plan Assessment/Plan #. Anemia secondary to chronic disease. --> Hemoglobin levels above goal. No blood transfusion required at this time. --> S/P abd CAT scan revealing evidence of hepatic cirrhosis. --> Continue to closely monitor and trend cbc daily. --> Anemia workup completed and reviewed. Iron 42, TIBC 180, Ferritin 593, B12 876. --> Ferritin is >500, hgb goal is >7 --> Anemia w/u has been reviewed --> ++Occult blood. Consider GI Services and Recs. --> EGD has been scheduled #. Left leg dvt --> acute onset, will need to review final duplex results --> on apixaban daily x 3 months, H/H has been stable. INR improved. --> okay to change to different anticoagulant if renal clearance an issue --> If h/h downtrends below 7.5, consider ivc filter placement. --> Hemoglobin currently >7.5 #. Thrombocytopenia. --> Hepatitis C ab ++, PCR - --> Monitor platelet level. Transfuse if platelet count <20k --> Levels remain low. # Hepatosplenomegaly. Ascites. There is also evidence of generalized anasarca, with pleural fluid and generalized subcutaneous edema --> Abd pain improved on pain management --> Refer to surgery note. #. Anemia of kidney disease --> HD as needed per nephrology team --> Monitor closely. --> Does not require iron at this time #. Generalized body ache related to fluid overload. #. End-stage renal disease, on hemodialysis as needed --> On hemodialysis #. Respiratory failure due to CHF and pneumonia. --> Providencia and pseudomonas. --> On vancomycin and ethambutol per ID. --> Chest pain improved at this time, on pain management. #. Shortness of breath. Due to underlying pneumonia. #. Atrial flutter with rapid ventricular response. On metoprolol and diltiazem. #. Conjunctivitis. Begin tobramycin. On anti TB treatment. On Amikacin and ethambutol. Continue telemetry. Subjective Date patient seen: Jul 28, 2017 Constitutional: Denies: no symptoms, chills, diaphoresis, fever, malaise, weakness, other HEENT: Denies: no symptoms, eye pain, blurred vision, tearing, double vision, ear pain, ear discharge, nose pain, nose congestion, throat pain, throat swelling, mouth pain, mouth swelling, other Cardiovascular: Denies: no symptoms, chest pain, edema, irregular heart rate, lightheadedness, palpitations, syncope, other Respiratory: Denies: no symptoms, cough, orthopnea, shortness of breath, SOB with excertion, SOB at rest, sputum, stridor, wheezing, other Gastrointestinal/Abdominal: Denies: no symptoms, abdomen distended, abdominal pain, black stools, tarry stools, blood in stool, constipated, diarrhea, difficulty swallowing, nausea, poor appetite, poor fluid intake, rectal bleeding , vomiting, other Genitourinary: Denies: no symptoms, burning, discharge, frequency, flank pain, hematuria, incontinence, pain, urgency, other Neurologic/Psychiatric: Denies: no symptoms, anxiety, depressed, emotional problems, headache, numbness, paresthesia, pre-existing deficit, seizure, tingling, tremors, weakness, other Hematologic/Lymphatic: Reports: anemia Allergies: Coded Allergies: IODINE AND IODIDE CONTAINING PRODUC (Verified Allergy, Mild, itching and pruritis, 06/25/17) Uncoded Allergies: CONTRAST/DYE (Allergy, Intermediate, PRURITIS AND ITCHING, 06/25/17) Subjective Edema. No fever. Pending EGD. Objective Last 24 Hour Vital Signs Date Time Temp Pulse Resp B/P (MAP) Pulse Ox O2 Delivery O2 Flow Rate FiO2 07/28/17 21:32 Room Air 07/28/17 21:30 98.4 78 24 145/86 Room Air 98.4 07/28/17 20:44 79 147/83 07/28/17 20:44 79 147/83 07/28/17 20:43 147/83 07/28/17 20:00 98.0 79 20 147/83 96 98.0 07/28/17 18:00 Room Air 07/28/17 18:00 98.0 79 24 146/87 Room Air 98.0 07/28/17 16:42 97.0 07/28/17 16:12 97.0 07/28/17 15:50 97.0 63 20 125/60 97 Nasal Cannula 2.0 97.0 07/28/17 13:14 67 132/79 07/28/17 12:13 98.5 07/28/17 12:00 98.3 67 19 132/79 97 Nasal Cannula 98.3 07/28/17 08:27 70 120/68 07/28/17 08:22 98.5 07/28/17 08:22 120/68 07/28/17 08:00 98.3 70 18 120/68 97 Room Air 98.3 07/28/17 06:00 72 127/103 07/28/17 04:00 98.5 72 20 127/103 92 98.5 07/28/17 00:00 98.4 78 20 113/64 97 98.4 Intake and Output 07/27/17 07/28/17 19:00 07:00 Intake Total 360 ml Output Total 0 ml Balance 360 ml Intake Oral 360 ml Output Urine Total 0 ml # Voids 3 # Bowel Movements 1 Laboratory Tests 07/28/17 05:40: White Blood Count 4.7L, Red Blood Count 2.67L, Hemoglobin 8.8L, Hematocrit 26.6L , Mean Corpuscular Volume 100H, Mean Corpuscular Hemoglobin 33.0H, Mean Corpuscular Hemoglobin Concent 33.1, Red Cell Distribution Width 13.7, Platelet Count 83L, Mean Platelet Volume 7.9, Neutrophils (%) (Auto) , Lymphocytes (%) ( Auto) , Monocytes (%) (Auto) , Eosinophils (%) (Auto) , Basophils (%) (Auto) , Differential Total Cells Counted 100, Neutrophils % (Manual) 45, Lymphocytes % ( Manual) 28, Monocytes % (Manual) 15H, Eosinophils % (Manual) 12H, Basophils % ( Manual) 0, Band Neutrophils 0, Platelet Estimate DecreasedL, Platelet Morphology Normal, Hypochromasia 1+, Macrocytosis 1+, Sodium Level 137, Potassium Level 5.3H, Chloride Level 96L, Carbon Dioxide Level 25, Anion Gap 16H , Blood Urea Nitrogen 64H, Creatinine 12.2H, Estimat Glomerular Filtration Rate 5.2, Glucose Level 90, Calcium Level 8.8, Iron Level 43L, Total Iron Binding Capacity 194L, Percent Iron Saturation 22, Unsaturated Iron Binding 151, Total Bilirubin 1.0, Aspartate Amino Transf (AST/SGOT) 28, Alanine Aminotransferase ( ALT/SGPT) 12, Alkaline Phosphatase 176H, Pro-B-Type Natriuretic Peptide 55746H, Total Protein 7.3, Albumin 2.6L, Globulin 4.7, Albumin/Globulin Ratio 0.6L 07/28/17 21:10: Random Amikacin Level [Pending] Height (Feet): 5 Height (Inches): 7.00 Weight (Pounds): 214 General Appearance: confused Respiratory/Chest: decreased breath sounds Abdomen: distended Edema: mild edema ZAK RUIZ Jul 28, 2017 23:56
[2017-07-29] VITALS: BP 133/82
[2017-07-29] MEDS: Clindamycin 150mg cap ORAL SCH ×4 (00:59→18:05)
[2017-07-29 04:00] VITALS: BP 138/82
[2017-07-29] MEDS: dilTIAZem HCl 60mg tab ORAL SCH ×3 (05:12→22:08)
[2017-07-29 07:31] LABS: HEMATOCRIT 27.1 % (42.0-52.0); HEMOGLOBIN 8.7 G/DL (14.2-18.0); MEAN CORPUSCULAR VOLUME 99 FL (80-99); PLATELET COUNT 90 K/UL (150-450); RED BLOOD COUNT 2.74 M/UL (4.70-6.10); RED CELL DISTRIBUTION WIDTH 13.5 % (11.6-14.8); WHITE BLOOD COUNT 4.5 K/UL (4.8-10.8)
[2017-07-29 07:46] LABS: ANION GAP 12 mmol/L (5-15); BLOOD UREA NITROGEN 54 mg/dL (7-18); CALCIUM 9.2 MG/DL (8.5-10.1); CARBON DIOXIDE 28 MMOL/L (21-32); CHLORIDE 97 MMOL/L (98-107); CREATININE 11.1 MG/DL (0.55-1.30); POTASSIUM 4.7 MMOL/L (3.5-5.1); SODIUM 137 MMOL/L (136-145)
[2017-07-29 08:24] VITALS: BP 119/67
[2017-07-29] MEDS: Lisinopril 20mg tab ORAL SCH ×2 (09:00→20:11)
[2017-07-29 12:20] VITALS: BP 118/67
--- NOTE | 2017-07-29 14:01 | Pulmonology Progress Note ---
Assessment/Plan Problems: (1) Respiratory failure (2) Pneumonia (3) Rapid atrial fibrillation (4) HTN (hypertension) (5) ESRD (end stage renal disease) on dialysis (6) Anemia Assessment/Plan feeling better CXR 07/28: RUL cavitary lesion improving, donaldson are getting thinner repeat cxr weekly slowly improving onNC HD by director compliance prbc prn on anti TB meds wtih IV Amikacin, ethambutol and Levofloxacin d/w Dr. chaparro again, tb control insisting on TB medication although, cultures are negative continue current meds TB control insist on continuing TB meds Subjective ROS Limited/Unobtainable: No Constitutional: Reports: no symptoms HEENT: Repors: no symptoms Respiratory: Reports: no symptoms Cardiovascular: Reports: no symptoms Allergies: Coded Allergies: IODINE AND IODIDE CONTAINING PRODUC (Verified Allergy, Mild, itching and pruritis, 06/25/17) Uncoded Allergies: CONTRAST/DYE (Allergy, Intermediate, PRURITIS AND ITCHING, 06/25/17) Objective Last 24 Hour Vital Signs Date Time Temp Pulse Resp B/P (MAP) Pulse Ox O2 Delivery O2 Flow Rate FiO2 07/29/17 13:17 97.9 07/29/17 13:16 64 118/67 07/29/17 12:20 97.9 64 20 118/67 94 97.9 07/29/17 09:48 98.6 07/29/17 09:18 98.6 07/29/17 09:00 71 119/67 07/29/17 09:00 119/67 07/29/17 08:24 98.6 71 20 119/67 95 98.6 07/29/17 05:12 71 138/82 07/29/17 04:00 98.1 71 20 138/82 95 98.1 07/29/17 00:00 98.8 78 20 133/82 88 98.8 07/28/17 21:32 Room Air 07/28/17 21:30 98.4 78 24 145/86 Room Air 98.4 07/28/17 20:44 79 147/83 07/28/17 20:44 79 147/83 07/28/17 20:43 147/83 07/28/17 20:00 98.0 79 20 147/83 96 98.0 07/28/17 19:24 94 Nasal Cannula 2.0 28 07/28/17 19:24 Nasal Cannula 2.0 28 07/28/17 18:00 Room Air 07/28/17 18:00 98.0 79 24 146/87 Room Air 98.0 07/28/17 16:12 97.0 07/28/17 15:50 97.0 63 20 125/60 97 Nasal Cannula 2.0 97.0 Intake and Output 07/28/17 07/29/17 19:00 07:00 Intake Total 720 ml Output Total 4500 ml Balance 720 ml -4500 ml Intake Oral 720 ml Hemodialysis UF 4500 ml # Voids 1 Objective General Appearance: WD/WN HEENT: normocephalic, atraumatic, anicteric Respiratory/Chest: loud rhonchi Cardiovascular: normal peripheral pulses, normal rate, regular rhythm Abdomen: normal bowel sounds, soft, non tender, no organomegaly Genitourinary: normal external genitalia Extremities: no cyanosis Skin: no rash, no lesions 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, no motor/sensory deficits Lymphatic: no neck adenopathy, no groin adenopathy Laboratory Tests 07/28/17 21:10: Random Amikacin Level 23.8 07/29/17 06:00: White Blood Count 4.5L, Red Blood Count 2.74L, Hemoglobin 8.7L, Hematocrit 27.1L , Mean Corpuscular Volume 99, Mean Corpuscular Hemoglobin 31.7H, Mean Corpuscular Hemoglobin Concent 32.0, Red Cell Distribution Width 13.5, Platelet Count 90L, Mean Platelet Volume 8.7, Neutrophils (%) (Auto) , Lymphocytes (%) ( Auto) , Monocytes (%) (Auto) , Eosinophils (%) (Auto) , Basophils (%) (Auto) , Differential Total Cells Counted 100, Neutrophils % (Manual) 54, Lymphocytes % ( Manual) 18L, Monocytes % (Manual) 14H, Eosinophils % (Manual) 13H, Basophils % ( Manual) 1, Band Neutrophils 0, Platelet Estimate DecreasedL, Platelet Morphology Normal, Hypochromasia 1+, Macrocytosis 1+, Sodium Level 137, Potassium Level 4.7, Chloride Level 97L, Carbon Dioxide Level 28, Anion Gap 12, Blood Urea Nitrogen 54H, Creatinine 11.1H, Estimat Glomerular Filtration Rate 5.8, Glucose Level 79, Calcium Level 9.2 Current Medications Medications (Trade) Dose Ordered Sig/Jose Route PRN Reason Start Time Stop Time Status Last Admin Dose Admin Alprazolam (Xanax) 2 mg DAILYPRN PRN ORAL For Anxiety 07/23/17 19:15 07/30/17 19:14 07/28/17 18:03 Amikacin Protocol (Amikacin pharmacy to dose) 1 ea DAILY PRN MISC Per rx protocol 07/16/17 09:00 08/03/17 15:14 Carisoprodol (Soma) 350 mg Q6H PRN ORAL Muscle Spasm 07/18/17 15:30 08/17/17 15:29 07/28/17 04:24 Chlorhexidine Gluconate (Mireille-Hex 2%) 1 applic DAILY@1999 TOPIC 07/15/17 20:00 08/02/17 19:59 07/28/17 20:44 Clindamycin HCl (Cleocin) 450 mg EVERY 6 HOURS ORAL 07/24/17 12:00 09/04/17 11:59 07/29/17 12:26 Dextrose (Dextrose 50%) 25 ml STAT PRN IV HYPOGLYCEMIA 07/16/17 08:30 08/08/17 08:29 Diltiazem HCl (Cardizem) 60 mg Q8HR ORAL 07/22/17 22:00 08/21/17 21:59 07/29/17 13:16 Ethambutol HCl (Myambutol) 1,000 mg 3XW@2099 ORAL 07/23/17 21:00 08/22/17 20:59 07/28/17 20:42 Hydromorphone HCl (Dilaudid) 2 mg Q4H PRN IVP Severe Pain (Pain Scale 7-10) 07/23/17 21:30 07/30/17 21:29 07/29/17 13:17 Levofloxacin (Levaquin) 750 mg EVERY OTHER DAY@1999 ORAL 07/23/17 20:00 07/30/17 19:59 07/27/17 20:17 Lisinopril (Prinivil) 20 mg Q12HR ORAL 07/16/17 09:00 08/15/17 08:59 07/28/17 20:43 Metoprolol Tartrate (Lopressor) 100 mg Q12HR ORAL 07/15/17 21:00 08/10/17 20:59 07/28/17 20:44 Ondansetron HCl (Zofran) 4 mg Q6H PRN IVP Nausea & Vomiting 07/18/17 15:30 08/17/17 15:29 07/28/17 01:19 Pantoprazole (Protonix) 40 mg BID ORAL 07/27/17 18:00 08/26/17 17:59 07/29/17 09:18 Christine Morgan MD Jul 29, 2017 14:01
--- NOTE | 2017-07-29 14:50 | Nephrology Progress Note ---
Assessment/Plan Problem List: (1) ESRD (end stage renal disease) on dialysis (2) Shortness of breath (3) Anemia Assessment Anemia ESRD , missed HD on admission , admitted with high K and pulmonary edema Acute respiratory distress due to volume overload elevated troponin r/o ACS h/o COPD ? exacerbation HTN urgency Cardiomyopathy L AICD anemia of chronic kidney disease Hx of CVA Plan Plan: HD last 07/25- will care for high K with HD Next HD 07/30 Kayexelate PRN Max UF Transfused Phos binders BP meds adjustment Optimize cardiac status per orders Subjective ROS Limited/Unobtainable: No Constitutional: Reports: malaise Objective Objective Last 24 Hour Vital Signs Date Time Temp Pulse Resp B/P (MAP) Pulse Ox O2 Delivery O2 Flow Rate FiO2 07/29/17 13:17 97.9 07/29/17 13:16 64 118/67 07/29/17 12:20 97.9 64 20 118/67 94 97.9 07/29/17 09:48 98.6 07/29/17 09:18 98.6 07/29/17 09:00 71 119/67 07/29/17 09:00 119/67 07/29/17 08:24 98.6 71 20 119/67 95 98.6 07/29/17 05:12 71 138/82 07/29/17 04:00 98.1 71 20 138/82 95 98.1 07/29/17 00:00 98.8 78 20 133/82 88 98.8 07/28/17 21:32 Room Air 07/28/17 21:30 98.4 78 24 145/86 Room Air 98.4 07/28/17 20:44 79 147/83 07/28/17 20:44 79 147/83 07/28/17 20:43 147/83 07/28/17 20:00 98.0 79 20 147/83 96 98.0 07/28/17 19:24 94 Nasal Cannula 2.0 28 07/28/17 19:24 Nasal Cannula 2.0 28 07/28/17 18:00 Room Air 07/28/17 18:00 98.0 79 24 146/87 Room Air 98.0 07/28/17 16:12 97.0 07/28/17 15:50 97.0 63 20 125/60 97 Nasal Cannula 2.0 97.0 Intake and Output 07/28/17 07/29/17 19:00 07:00 Intake Total 720 ml Output Total 4500 ml Balance 720 ml -4500 ml Intake Oral 720 ml Hemodialysis UF 4500 ml # Voids 1 Laboratory Tests 07/28/17 21:10: Random Amikacin Level 23.8 07/29/17 06:00: White Blood Count 4.5L, Red Blood Count 2.74L, Hemoglobin 8.7L, Hematocrit 27.1L , Mean Corpuscular Volume 99, Mean Corpuscular Hemoglobin 31.7H, Mean Corpuscular Hemoglobin Concent 32.0, Red Cell Distribution Width 13.5, Platelet Count 90L, Mean Platelet Volume 8.7, Neutrophils (%) (Auto) , Lymphocytes (%) ( Auto) , Monocytes (%) (Auto) , Eosinophils (%) (Auto) , Basophils (%) (Auto) , Differential Total Cells Counted 100, Neutrophils % (Manual) 54, Lymphocytes % ( Manual) 18L, Monocytes % (Manual) 14H, Eosinophils % (Manual) 13H, Basophils % ( Manual) 1, Band Neutrophils 0, Platelet Estimate DecreasedL, Platelet Morphology Normal, Hypochromasia 1+, Macrocytosis 1+, Sodium Level 137, Potassium Level 4.7, Chloride Level 97L, Carbon Dioxide Level 28, Anion Gap 12, Blood Urea Nitrogen 54H, Creatinine 11.1H, Estimat Glomerular Filtration Rate 5.8, Glucose Level 79, Calcium Level 9.2 Height (Feet): 5 Height (Inches): 7.00 Weight (Pounds): 199 General Appearance: no apparent distress Objective no change LIAM MONTELONGO Jul 29, 2017 14:50
--- NOTE | 2017-07-29 14:54 | Internal Med Progress Note ---
Subjective Date of Service: Jul 29, 2017 Physician Name PiresZoey Attending Physician Chaitanya Weinstein MD Current Medications Medications (Trade) Dose Ordered Sig/Jose Route PRN Reason Start Time Stop Time Status Last Admin Dose Admin Alprazolam (Xanax) 2 mg DAILYPRN PRN ORAL For Anxiety 07/23/17 19:15 07/30/17 19:14 07/28/17 18:03 Amikacin Protocol (Amikacin pharmacy to dose) 1 ea DAILY PRN MISC Per rx protocol 07/16/17 09:00 08/03/17 15:14 Carisoprodol (Soma) 350 mg Q6H PRN ORAL Muscle Spasm 07/18/17 15:30 08/17/17 15:29 07/28/17 04:24 Chlorhexidine Gluconate (Mireille-Hex 2%) 1 applic DAILY@1999 TOPIC 07/15/17 20:00 08/02/17 19:59 07/28/17 20:44 Clindamycin HCl (Cleocin) 450 mg EVERY 6 HOURS ORAL 07/24/17 12:00 09/04/17 11:59 07/29/17 12:26 Dextrose (Dextrose 50%) 25 ml STAT PRN IV HYPOGLYCEMIA 07/16/17 08:30 08/08/17 08:29 Diltiazem HCl (Cardizem) 60 mg Q8HR ORAL 07/22/17 22:00 08/21/17 21:59 07/29/17 13:16 Ethambutol HCl (Myambutol) 1,000 mg 3XW@2099 ORAL 07/23/17 21:00 08/22/17 20:59 07/28/17 20:42 Hydromorphone HCl (Dilaudid) 2 mg Q4H PRN IVP Severe Pain (Pain Scale 7-10) 07/23/17 21:30 07/30/17 21:29 07/29/17 13:17 Levofloxacin (Levaquin) 750 mg EVERY OTHER DAY@1999 ORAL 07/23/17 20:00 07/30/17 19:59 07/27/17 20:17 Lisinopril (Prinivil) 20 mg Q12HR ORAL 07/16/17 09:00 08/15/17 08:59 07/28/17 20:43 Metoprolol Tartrate (Lopressor) 100 mg Q12HR ORAL 07/15/17 21:00 08/10/17 20:59 07/28/17 20:44 Ondansetron HCl (Zofran) 4 mg Q6H PRN IVP Nausea & Vomiting 07/18/17 15:30 08/17/17 15:29 07/28/17 01:19 Pantoprazole (Protonix) 40 mg BID ORAL 07/27/17 18:00 08/26/17 17:59 07/29/17 09:18 Temazepam (Restoril) 15 mg HSPRN PRN ORAL Insomnia 07/29/17 21:00 08/05/17 20:59 Allergies: Coded Allergies: IODINE AND IODIDE CONTAINING PRODUC (Verified Allergy, Mild, itching and pruritis, 06/25/17) Uncoded Allergies: CONTRAST/DYE (Allergy, Intermediate, PRURITIS AND ITCHING, 06/25/17) ROS Limited/Unobtainable: No Constitutional: Reports: no symptoms HEENT: Reports: no symptoms Cardiovascular: Reports: no symptoms Respiratory: Reports: no symptoms Gastrointestinal/Abdominal: Reports: no symptoms Genitourinary: Reports: no symptoms Neurologic/Psychiatric: Reports: no symptoms Subjective 57 YO M admitted with chest pain and shortness of breath. Now pneumonia and candelaria heart failure. Back on nasal canula. Cover for Int Misbah-Dr Weinstein. Now atrial flutter Objective Last Vital Signs Date Time Temp Pulse Resp B/P (MAP) Pulse Ox O2 Delivery O2 Flow Rate FiO2 07/29/17 13:17 97.9 07/29/17 13:16 64 118/67 07/29/17 12:20 20 94 07/28/17 21:32 Room Air 07/28/17 19:24 2.0 28 Laboratory Tests Test 07/28/17 21:10 07/29/17 06:00 Random Amikacin Level 23.8 MG/L White Blood Count 4.5 K/UL (4.8-10.8) L Red Blood Count 2.74 M/UL (4.70-6.10) L Hemoglobin 8.7 G/DL (14.2-18.0) L Hematocrit 27.1 % (42.0-52.0) L Mean Corpuscular Volume 99 FL (80-99) Mean Corpuscular Hemoglobin 31.7 PG (27.0-31.0) H Mean Corpuscular Hemoglobin Concent 32.0 G/DL (32.0-36.0) Red Cell Distribution Width 13.5 % (11.6-14.8) Platelet Count 90 K/UL (150-450) L Mean Platelet Volume 8.7 FL (6.5-10.1) Neutrophils (%) (Auto) % (45.0-75.0) Lymphocytes (%) (Auto) % (20.0-45.0) Monocytes (%) (Auto) % (1.0-10.0) Eosinophils (%) (Auto) % (0.0-3.0) Basophils (%) (Auto) % (0.0-2.0) Differential Total Cells Counted 100 Neutrophils % (Manual) 54 % (45-75) Lymphocytes % (Manual) 18 % (20-45) L Monocytes % (Manual) 14 % (1-10) H Eosinophils % (Manual) 13 % (0-3) H Basophils % (Manual) 1 % (0-2) Band Neutrophils 0 % (0-8) Platelet Estimate Decreased L Platelet Morphology Normal Hypochromasia 1+ Macrocytosis 1+ Sodium Level 137 MMOL/L (136-145) Potassium Level 4.7 MMOL/L (3.5-5.1) Chloride Level 97 MMOL/L (98-107) L Carbon Dioxide Level 28 MMOL/L (21-32) Anion Gap 12 mmol/L (5-15) Blood Urea Nitrogen 54 mg/dL (7-18) H Creatinine 11.1 MG/DL (0.55-1.30) H Estimat Glomerular Filtration Rate 5.8 mL/min (>60) Glucose Level 79 MG/DL (74-106) Calcium Level 9.2 MG/DL (8.5-10.1) Intake and Output 07/28/17 07/29/17 19:00 07:00 Intake Total 720 ml Output Total 4500 ml Balance 720 ml -4500 ml Intake Oral 720 ml Hemodialysis UF 4500 ml # Voids 1 Objective General Appearance: WD/WN, alert, moderate distress EENT: PERRL/EOMI, normal ENT inspection Neck: non-tender, normal alignment, supple, normal inspection Cardiovascular: Tachycardia; normal peripheral pulses, normal rate, regular rhythm, no gallop/murmur, no JVD Respiratory/Chest: Nasal canula; respiratory distress, crackles/rales, rhonchi - bilaterally, expiratory wheezing Abdomen: normal bowel sounds, non tender, soft, no organomegaly, no mass Extremities: normal range of motion 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 (2) Respiratory failure Assessment & Plan: CHF and Pneumonia. Currently on nasal canula. See pulmonay note. (3) Pleuritic chest pain (4) Hemoptysis Assessment & Plan: Due to pneumonia (5) Pneumonia Assessment & Plan: Providencia and pseudamonas. RUL. AFB cultures negative- see ID consult. Continue ethambutol, amikacin, levaquin and clindamycin per ID (6) Shortness of breath (7) ESRD (end stage renal disease) on dialysis Assessment & Plan: See nephrology note. Next Hemodialysis 07/28/17 per nephrology (8) Hyperkalemia Assessment & Plan: Due to renal failure. Hemodialysis 06/13/17 per nephrology (9) COPD (chronic obstructive pulmonary disease) (10) HTN (hypertension) Assessment & Plan: Continue coreg and lisinopril. (11) CHF (congestive heart failure) (12) Elevated troponin Assessment & Plan: ?due to renal failure? See cardiology note. (13) Intractable abdominal pain Assessment & Plan: See surgery note (14) Conjunctivitis Assessment & Plan: start tobramycin (15) Diarrhea Assessment & Plan: C. Diff; resolved Status: stable Assessment/Plan Discharge planning - prison [facility] ZOEY PIRES Jul 29, 2017 14:54
[2017-07-29 15:46] VITALS: BP 123/65
[2017-07-29] MEDS: ALPRAZolam 0.5mg tab ORAL PRN (16:12)
--- NOTE | 2017-07-29 16:16 | Infectious Diseases Prog Note ---
Assessment/Plan Assessment/Plan Cavitary PNA. SCx: Neg ( m/l anaerobic abscess than necrotizing Pneum , doubt TB or fungal ) ; improving - 07/09 SP BAL Cx( Abby and MOJGAN : Colonizers ) , Path : Neg for fungus and Malignancy -CXR 07/28: Possibly improving right lung cavitary lesion, over 7 days Otherwise unchanged findings as described. - Ch-CT 07/15 : The overall lesion appears smaller, measuring 6.3 cm AP by 3.6 cm transverse by 2.3 cm craniocaudad currently -CT chest 06/25: Since the prior study of 06/15/2017, and. From further reduction in size of previously demonstrated thick walled right upper lobe cavitary mass. This was previously thought to most likely represent a cavitary inflammatory mass, and the interim reduction in size certainly supports that. Much less likely a cavitary neoplasm, but follow-up to resolution is recommended. Markedly improved parenchymal disease bilaterally, since the previous study. Nonetheless , extensive atelectasis and groundglass consolidation persists. Persistent small right pleural effusion, smaller than on the prior study. Resolved left pleural effusion 6 mm nodular opacity in the right upper lobe, not evident previously but likely obscured by surrounding consolidated lung parenchyma. This should be followed up in 6 months to one year depending on results of interim follow-up exams T-SPOT :Neg Culture and stain AFB x 3 : Neg MTB PCR x2 : neg cryptococcus Ag, Histoplams mycelial Ab , Blastomyces ab : neg ; histoplasma yeast ab (not able to be done due to anticomplementary activity) -Cocci, Asp ag p -Fungitell + 144 (?aspergillosis vs m/l false positive) CT chest 06/15: Slightly smaller (6 cm diameter ) but mostly unchanged cavitary lesion in the right lung, previously thought to represent a cavitating inflammatory process. Lung abscess is certainly a possibility. Fairly extensive bilateral pulmonary parenchymal consolidation, slightly increased from previous exam of 06/05/2017. Likely a combination of pulmonary edema and pneumonia. Small right and trace left pleural effusion, new/increased from the previous study. CT 06/05: 7.8 x 5.3 x 6.6 cm dense opacity in the posterior inferior right upper lobe with a central cavitation. CRP 14 Influenza negative Coccidioidal ,Galactomannan : NEG ( PER LAB ) Transaminitis , improved after stopping rifampin 2/2 Hep C cirrhosis- no active Hep C as VL not detected -CT abd/p: Evidence of hepatic cirrhosis. Hepatosplenomegaly. evidence of generalized anasarca, with pleural fluid and generalized subcutaneous edema. Cholelithiasis, also previously reported. Possible diverticulosis. No evidence of diverticulitis US Abd : Cholelithiasis. There is gallbladder wall thickening, likely related to hemodynamic abnormalities Splenomegaly. Evidence of hepatic cirrhosis HIV : NEG Hep Panel B neg , C Ab : +ve , VL not detected leukopenia and TCP 2/2 splenomegaly Seizure disorder History of CVA History of pacemaker placement Hyperlipidemia Hypertension COPD/asthma End-stage renal disease, on hemodialysis Diabetes Anxiety Anemia Echo, ejection fraction 45% to 50%. PLAN: - Cont oral Clinda d# 14 ( till resolution/ stabilization of abscess) ( abx d# 52 ) Continue Ethambutol and Levaquin, Amikacin ( empiric TB AB Rx d# 42 TB control they want to cont TB Meds regardless of AFB Cultures Neg x 3 (called : 07/22 ) ) -upon discharge IV Amikacin will be switch to IM -d/c R IJ prior to discharge 07/16 SP Zoysn d# 9 ( for SOB and CXR worsen , better coverage of anaerobes, PSA and Providencia ); 07/07 Flagyl 07/06 SP Voriconazole ( low antonio for fungal infection , and in the setting of cirrhosis ) 07/05 SP Micafungin abx d#20 , Rifampin 600mg qd #10 07/01 SP Ceftriaxone #10 06/28 SP Amikacin #15 06/25 SP PO Voriconazole #3 06/20 SP Liposomal Ampho #8 06/17 SP IV Vancomycin #14, Meropenem #5 06/13 SP Zosyn d# 10 06/08 SP Zithromax D# 6 BAL fungal and AFB Cx : P - CMP Subjective Allergies: Coded Allergies: IODINE AND IODIDE CONTAINING PRODUC (Verified Allergy, Mild, itching and pruritis, 06/25/17) Uncoded Allergies: CONTRAST/DYE (Allergy, Intermediate, PRURITIS AND ITCHING, 06/25/17) Subjective afebrile no leukocytosis Tbili 1.7, dept of public health recommends switching rifampin back to amikacin Objective Vital Signs Last 24 Hour Vital Signs Date Time Temp Pulse Resp B/P (MAP) Pulse Ox O2 Delivery O2 Flow Rate FiO2 07/29/17 15:46 98.2 75 20 123/65 94 98.2 07/29/17 13:47 97.9 07/29/17 13:17 97.9 07/29/17 13:16 64 118/67 07/29/17 12:20 97.9 64 20 118/67 94 97.9 07/29/17 09:18 98.6 07/29/17 09:00 71 119/67 07/29/17 09:00 119/67 07/29/17 08:24 98.6 71 20 119/67 95 98.6 07/29/17 05:12 71 138/82 07/29/17 04:00 98.1 71 20 138/82 95 98.1 07/29/17 00:00 98.8 78 20 133/82 88 98.8 07/28/17 21:32 Room Air 07/28/17 21:30 98.4 78 24 145/86 Room Air 98.4 07/28/17 20:44 79 147/83 07/28/17 20:44 79 147/83 07/28/17 20:43 147/83 07/28/17 20:00 98.0 79 20 147/83 96 98.0 07/28/17 19:24 94 Nasal Cannula 2.0 28 07/28/17 19:24 Nasal Cannula 2.0 28 07/28/17 18:00 Room Air 07/28/17 18:00 98.0 79 24 146/87 Room Air 98.0 07/28/17 16:12 97.0 Height (Feet): 5 Height (Inches): 7.00 Weight (Pounds): 199 Objective General Appearance: WD/WN, alert, moderate distress EENT: PERRL/EOMI, normal ENT inspection Neck: non-tender, normal alignment, supple, normal inspection Cardiovascular: normal peripheral pulses, normal rate, regular rhythm, no gallop/murmur, no JVD Respiratory/Chest: Non rebreather; respiratory distress, crackles/rales, rhonchi - bilaterally, expiratory wheezing Abdomen: normal bowel sounds, non tender, soft, no organomegaly, no mass Extremities: normal range of motion 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, no motor/sensory deficits Skin: normal pigmentation, warm/dry Laboratory Tests Test 07/28/17 21:10 07/29/17 06:00 Random Amikacin Level 23.8 MG/L White Blood Count 4.5 K/UL (4.8-10.8) L Red Blood Count 2.74 M/UL (4.70-6.10) L Hemoglobin 8.7 G/DL (14.2-18.0) L Hematocrit 27.1 % (42.0-52.0) L Mean Corpuscular Volume 99 FL (80-99) Mean Corpuscular Hemoglobin 31.7 PG (27.0-31.0) H Mean Corpuscular Hemoglobin Concent 32.0 G/DL (32.0-36.0) Red Cell Distribution Width 13.5 % (11.6-14.8) Platelet Count 90 K/UL (150-450) L Mean Platelet Volume 8.7 FL (6.5-10.1) Neutrophils (%) (Auto) % (45.0-75.0) Lymphocytes (%) (Auto) % (20.0-45.0) Monocytes (%) (Auto) % (1.0-10.0) Eosinophils (%) (Auto) % (0.0-3.0) Basophils (%) (Auto) % (0.0-2.0) Differential Total Cells Counted 100 Neutrophils % (Manual) 54 % (45-75) Lymphocytes % (Manual) 18 % (20-45) L Monocytes % (Manual) 14 % (1-10) H Eosinophils % (Manual) 13 % (0-3) H Basophils % (Manual) 1 % (0-2) Band Neutrophils 0 % (0-8) Platelet Estimate Decreased L Platelet Morphology Normal Hypochromasia 1+ Macrocytosis 1+ Sodium Level 137 MMOL/L (136-145) Potassium Level 4.7 MMOL/L (3.5-5.1) Chloride Level 97 MMOL/L (98-107) L Carbon Dioxide Level 28 MMOL/L (21-32) Anion Gap 12 mmol/L (5-15) Blood Urea Nitrogen 54 mg/dL (7-18) H Creatinine 11.1 MG/DL (0.55-1.30) H Estimat Glomerular Filtration Rate 5.8 mL/min (>60) Glucose Level 79 MG/DL (74-106) Calcium Level 9.2 MG/DL (8.5-10.1) Current Medications Medications (Trade) Dose Ordered Sig/Jose Route PRN Reason Start Time Stop Time Status Last Admin Dose Admin Alprazolam (Xanax) 2 mg DAILYPRN PRN ORAL For Anxiety 07/23/17 19:15 07/30/17 19:14 07/28/17 18:03 Amikacin Protocol (Amikacin pharmacy to dose) 1 ea DAILY PRN MISC Per rx protocol 07/16/17 09:00 08/03/17 15:14 Carisoprodol (Soma) 350 mg Q6H PRN ORAL Muscle Spasm 07/18/17 15:30 08/17/17 15:29 07/28/17 04:24 Chlorhexidine Gluconate (Mireille-Hex 2%) 1 applic DAILY@1999 TOPIC 07/15/17 20:00 08/02/17 19:59 07/28/17 20:44 Clindamycin HCl (Cleocin) 450 mg EVERY 6 HOURS ORAL 07/24/17 12:00 09/04/17 11:59 07/29/17 12:26 Dextrose (Dextrose 50%) 25 ml STAT PRN IV HYPOGLYCEMIA 07/16/17 08:30 08/08/17 08:29 Diltiazem HCl (Cardizem) 60 mg Q8HR ORAL 07/22/17 22:00 08/21/17 21:59 07/29/17 13:16 Ethambutol HCl (Myambutol) 1,000 mg 3XW@2099 ORAL 07/23/17 21:00 08/22/17 20:59 07/28/17 20:42 Hydromorphone HCl (Dilaudid) 2 mg Q4H PRN IVP Severe Pain (Pain Scale 7-10) 07/23/17 21:30 07/30/17 21:29 07/29/17 13:17 Levofloxacin (Levaquin) 750 mg EVERY OTHER DAY@1999 ORAL 07/23/17 20:00 07/30/17 19:59 07/27/17 20:17 Lisinopril (Prinivil) 20 mg Q12HR ORAL 07/16/17 09:00 08/15/17 08:59 07/28/17 20:43 Metoprolol Tartrate (Lopressor) 100 mg Q12HR ORAL 07/15/17 21:00 08/10/17 20:59 07/28/17 20:44 Ondansetron HCl (Zofran) 4 mg Q6H PRN IVP Nausea & Vomiting 07/18/17 15:30 08/17/17 15:29 07/28/17 01:19 Pantoprazole (Protonix) 40 mg BID ORAL 07/27/17 18:00 08/26/17 17:59 07/29/17 09:18 Temazepam (Restoril) 15 mg HSPRN PRN ORAL Insomnia 07/29/17 21:00 08/05/17 20:59 Aleja Crocker M.D. Jul 29, 2017 16:16
--- NOTE | 2017-07-29 19:13 | General Progress Note ---
Assessment/Plan Assessment/Plan Assessment - gallstones - abnormal LFT / cirrhosis - Periodic N/V with abnormal GB ultrasound, ? possibly biliary colic - patient declined HIDA - Anemia, multifactorial - OB (+) Stool - EGD / Colonoscopy scheduled for - ESRD/HD - DM - HTN - COPD - Cavitary lung disease - Thrombocytopenia - cirrhotic appearing liver on CT - Hepatitis C Ab (+)/ PCR (-) - Poor prognosis Recommendations - PO as tolerated - follow symptoms and exam - monitor LFT - avoid hepatotoxic meds - BID PPI - monitor CBC - anticoagulation on hold for EGD/Colonoscopy - abx per ID Subjective Allergies: Coded Allergies: IODINE AND IODIDE CONTAINING PRODUC (Verified Allergy, Mild, itching and pruritis, 06/25/17) Uncoded Allergies: CONTRAST/DYE (Allergy, Intermediate, PRURITIS AND ITCHING, 06/25/17) Subjective Feels OK (+) loose BM with prep on clears EGD / Colonoscopy scheduled for Objective Last 24 Hour Vital Signs Date Time Temp Pulse Resp B/P (MAP) Pulse Ox O2 Delivery O2 Flow Rate FiO2 07/29/17 18:35 98.2 07/29/17 18:05 98.2 07/29/17 15:46 98.2 75 20 123/65 94 98.2 07/29/17 13:17 97.9 07/29/17 13:16 64 118/67 07/29/17 12:20 97.9 64 20 118/67 94 97.9 07/29/17 09:18 98.6 07/29/17 09:00 71 119/67 07/29/17 09:00 119/67 07/29/17 08:24 98.6 71 20 119/67 95 98.6 07/29/17 05:12 71 138/82 07/29/17 04:00 98.1 71 20 138/82 95 98.1 07/29/17 00:00 98.8 78 20 133/82 88 98.8 07/28/17 21:32 Room Air 07/28/17 21:30 98.4 78 24 145/86 Room Air 98.4 07/28/17 20:44 79 147/83 07/28/17 20:44 79 147/83 07/28/17 20:43 147/83 07/28/17 20:00 98.0 79 20 147/83 96 98.0 07/28/17 19:24 94 Nasal Cannula 2.0 28 07/28/17 19:24 Nasal Cannula 2.0 28 Intake and Output 07/28/17 07/29/17 19:00 07:00 Intake Total 720 ml Output Total 4500 ml Balance 720 ml -4500 ml Intake Oral 720 ml Hemodialysis UF 4500 ml # Voids 1 Laboratory Tests 07/28/17 21:10: Random Amikacin Level 23.8 07/29/17 06:00: White Blood Count 4.5L, Red Blood Count 2.74L, Hemoglobin 8.7L, Hematocrit 27.1L , Mean Corpuscular Volume 99, Mean Corpuscular Hemoglobin 31.7H, Mean Corpuscular Hemoglobin Concent 32.0, Red Cell Distribution Width 13.5, Platelet Count 90L, Mean Platelet Volume 8.7, Neutrophils (%) (Auto) , Lymphocytes (%) ( Auto) , Monocytes (%) (Auto) , Eosinophils (%) (Auto) , Basophils (%) (Auto) , Differential Total Cells Counted 100, Neutrophils % (Manual) 54, Lymphocytes % ( Manual) 18L, Monocytes % (Manual) 14H, Eosinophils % (Manual) 13H, Basophils % ( Manual) 1, Band Neutrophils 0, Platelet Estimate DecreasedL, Platelet Morphology Normal, Hypochromasia 1+, Macrocytosis 1+, Sodium Level 137, Potassium Level 4.7, Chloride Level 97L, Carbon Dioxide Level 28, Anion Gap 12, Blood Urea Nitrogen 54H, Creatinine 11.1H, Estimat Glomerular Filtration Rate 5.8, Glucose Level 79, Calcium Level 9.2 Height (Feet): 5 Height (Inches): 7.00 Weight (Pounds): 199 Objective WDWN AA Man NCAT supple CTA RRR Soft mildly distended, (+) trunk edema (++) leg edema PERCY JOYNER Jul 29, 2017 19:13
[2017-07-29] MEDS ORDERED: Lactulose 20gm/30ml UDC ORAL ONE (19:15)
[2017-07-29] MEDS ORDERED: Lactulose 20gm/30ml UDC ORAL SCH (19:15)
[2017-07-29] MEDS ORDERED: Bisacodyl EC 5mg tab ORAL SCH (19:15)
[2017-07-29 20:00] VITALS: BP 122/70
[2017-07-29] MEDS: Dyna-Hex 2% Top Sol 2oz TOPIC SCH (20:13)
--- NOTE | 2017-07-29 23:56 | General Progress Note ---
Assessment/Plan Assessment/Plan #. Anemia secondary to chronic disease. --> Hemoglobin levels above goal. No blood transfusion required at this time. --> S/P abd CAT scan revealing evidence of hepatic cirrhosis. --> Continue to closely monitor and trend cbc daily. --> Anemia workup completed and reviewed. Iron 42, TIBC 180, Ferritin 593, B12 876. --> Ferritin is >500, hgb goal is >7 --> Anemia w/u has been reviewed --> ++Occult blood. Consider GI Services and Recs. --> EGD has been scheduled #. Left leg dvt --> acute onset, will need to review final duplex results --> on apixaban daily x 3 months, H/H has been stable. INR improved. --> okay to change to different anticoagulant if renal clearance an issue --> If h/h downtrends below 7.5, consider ivc filter placement. --> Hemoglobin currently >7.5 #. Thrombocytopenia. --> Hepatitis C ab ++, PCR - --> Monitor platelet level. Transfuse if platelet count <20k --> Levels remain low. # Hepatosplenomegaly. Ascites. There is also evidence of generalized anasarca, with pleural fluid and generalized subcutaneous edema --> Abd pain improved on pain management --> Refer to surgery note. #. Anemia of kidney disease --> HD as needed per nephrology team --> Monitor closely. --> Does not require iron at this time #. Generalized body ache related to fluid overload. #. End-stage renal disease, on hemodialysis as needed --> On hemodialysis #. Respiratory failure due to CHF and pneumonia. --> Providencia and pseudomonas. --> On vancomycin and ethambutol per ID. --> Chest pain improved at this time, on pain management. #. Shortness of breath. Due to underlying pneumonia. #. Atrial flutter with rapid ventricular response. On metoprolol and diltiazem. #. Conjunctivitis. Begin tobramycin. On anti TB treatment. On Amikacin and ethambutol. Continue telemetry. Subjective Allergies: Coded Allergies: IODINE AND IODIDE CONTAINING PRODUC (Verified Allergy, Mild, itching and pruritis, 06/25/17) Uncoded Allergies: CONTRAST/DYE (Allergy, Intermediate, PRURITIS AND ITCHING, 06/25/17) Subjective Edema. No fever. Pending EGD. Objective Last 24 Hour Vital Signs Date Time Temp Pulse Resp B/P (MAP) Pulse Ox O2 Delivery O2 Flow Rate FiO2 07/29/17 22:08 76 122/70 07/29/17 20:12 76 122/70 07/29/17 20:11 122/70 07/29/17 20:00 98.1 76 20 122/70 95 98.1 07/29/17 18:35 98.2 07/29/17 18:05 98.2 07/29/17 15:46 98.2 75 20 123/65 94 98.2 07/29/17 13:17 97.9 07/29/17 13:16 64 118/67 07/29/17 12:20 97.9 64 20 118/67 94 97.9 07/29/17 09:18 98.6 07/29/17 09:00 71 119/67 07/29/17 09:00 119/67 07/29/17 08:24 98.6 71 20 119/67 95 98.6 07/29/17 05:12 71 138/82 07/29/17 04:00 98.1 71 20 138/82 95 98.1 07/29/17 00:00 98.8 78 20 133/82 88 98.8 Intake and Output 07/28/17 07/29/17 19:00 07:00 Intake Total 720 ml Output Total 4500 ml Balance 720 ml -4500 ml Intake Oral 720 ml Hemodialysis UF 4500 ml # Voids 1 Laboratory Tests 07/29/17 06:00: White Blood Count 4.5L, Red Blood Count 2.74L, Hemoglobin 8.7L, Hematocrit 27.1L , Mean Corpuscular Volume 99, Mean Corpuscular Hemoglobin 31.7H, Mean Corpuscular Hemoglobin Concent 32.0, Red Cell Distribution Width 13.5, Platelet Count 90L, Mean Platelet Volume 8.7, Neutrophils (%) (Auto) , Lymphocytes (%) ( Auto) , Monocytes (%) (Auto) , Eosinophils (%) (Auto) , Basophils (%) (Auto) , Differential Total Cells Counted 100, Neutrophils % (Manual) 54, Lymphocytes % ( Manual) 18L, Monocytes % (Manual) 14H, Eosinophils % (Manual) 13H, Basophils % ( Manual) 1, Band Neutrophils 0, Platelet Estimate DecreasedL, Platelet Morphology Normal, Hypochromasia 1+, Macrocytosis 1+, Sodium Level 137, Potassium Level 4.7, Chloride Level 97L, Carbon Dioxide Level 28, Anion Gap 12, Blood Urea Nitrogen 54H, Creatinine 11.1H, Estimat Glomerular Filtration Rate 5.8, Glucose Level 79, Calcium Level 9.2 Height (Feet): 5 Height (Inches): 7.00 Weight (Pounds): 199 General Appearance: confused Respiratory/Chest: decreased breath sounds Abdomen: non tender, soft Edema: mild edema ZAK RUIZ Jul 29, 2017 23:56
[2017-07-30] VITALS (7 sets, daily range): BP systolic 117–146; BP diastolic 72–90
[2017-07-30] MEDS: Clindamycin 150mg cap ORAL SCH ×5 (00:07→23:46)
[2017-07-30] MEDS: dilTIAZem HCl 60mg tab ORAL SCH ×3 (06:28→22:00)
[2017-07-30] MEDS ORDERED: Nulytely 4L ORAL SCH (07:00)
[2017-07-30] MEDS: Lisinopril 20mg tab ORAL SCH ×2 (08:42→21:00)
--- NOTE | 2017-07-30 12:54 | Internal Med Progress Note ---
Subjective Date of Service: Jul 30, 2017 Physician Name Zoey Pires Attending Physician Chaitanya Weinstein MD Current Medications Medications (Trade) Dose Ordered Sig/Jose Route PRN Reason Start Time Stop Time Status Last Admin Dose Admin Alprazolam (Xanax) 2 mg DAILYPRN PRN ORAL For Anxiety 07/23/17 19:15 07/30/17 19:14 07/29/17 16:12 Amikacin Protocol (Amikacin pharmacy to dose) 1 ea DAILY PRN MISC Per rx protocol 07/16/17 09:00 08/03/17 15:14 Bisacodyl (Dulcolax) 20 mg ONCE ORAL 07/30/17 17:00 07/30/17 18:00 Carisoprodol (Soma) 350 mg Q6H PRN ORAL Muscle Spasm 07/18/17 15:30 08/17/17 15:29 07/28/17 04:24 Chlorhexidine Gluconate (Mireille-Hex 2%) 1 applic DAILY@1999 TOPIC 07/15/17 20:00 08/02/17 19:59 07/29/17 20:13 Clindamycin HCl (Cleocin) 450 mg EVERY 6 HOURS ORAL 07/24/17 12:00 09/04/17 11:59 07/30/17 06:28 Dextrose (Dextrose 50%) 25 ml STAT PRN IV HYPOGLYCEMIA 07/16/17 08:30 08/08/17 08:29 Diltiazem HCl (Cardizem) 60 mg Q8HR ORAL 07/22/17 22:00 08/21/17 21:59 07/30/17 06:28 Ethambutol HCl (Myambutol) 1,000 mg 3XW@2099 ORAL 07/23/17 21:00 08/22/17 20:59 07/28/17 20:42 Hydromorphone HCl (Dilaudid) 2 mg Q4H PRN IVP Severe Pain (Pain Scale 7-10) 07/23/17 21:30 07/30/17 21:29 07/30/17 10:29 Levofloxacin (Levaquin) 750 mg EVERY OTHER DAY@1999 ORAL 07/23/17 20:00 07/30/17 19:59 07/29/17 20:11 Lisinopril (Prinivil) 20 mg Q12HR ORAL 07/16/17 09:00 5/11/18 08:59 07/30/17 08:42 Metoprolol Tartrate (Lopressor) 100 mg Q12HR ORAL 07/15/17 21:00 08/10/17 20:59 07/30/17 08:43 Ondansetron HCl (Zofran) 4 mg Q6H PRN IVP Nausea & Vomiting 07/18/17 15:30 08/17/17 15:29 07/28/17 01:19 Pantoprazole (Protonix) 40 mg BID ORAL 07/27/17 18:00 08/26/17 17:59 07/30/17 08:42 Temazepam (Restoril) 15 mg HSPRN PRN ORAL Insomnia 07/29/17 21:00 08/05/17 20:59 Allergies: Coded Allergies: IODINE AND IODIDE CONTAINING PRODUC (Verified Allergy, Mild, itching and pruritis, 06/25/17) Uncoded Allergies: CONTRAST/DYE (Allergy, Intermediate, PRURITIS AND ITCHING, 06/25/17) ROS Limited/Unobtainable: No Constitutional: Reports: no symptoms HEENT: Reports: no symptoms Cardiovascular: Reports: no symptoms Respiratory: Reports: no symptoms Gastrointestinal/Abdominal: Reports: no symptoms Genitourinary: Reports: no symptoms Neurologic/Psychiatric: Reports: no symptoms Subjective 57 YO M admitted with chest pain and shortness of breath. Now pneumonia and candelaria heart failure. Back on nasal canula. Cover for Int Misbah-Dr Weinstein. Now atrial flutter Objective Last Vital Signs Date Time Temp Pulse Resp B/P (MAP) Pulse Ox O2 Delivery O2 Flow Rate FiO2 07/30/17 12:00 97.4 60 16 119/80 100 Room Air 97.4 07/28/17 19:24 2.0 28 Intake and Output 07/29/17 07/30/17 19:00 07:00 Intake Total 960 ml Balance 960 ml Intake Oral 960 ml # Bowel Movements 1 Objective General Appearance: WD/WN, alert, moderate distress EENT: PERRL/EOMI, normal ENT inspection Neck: non-tender, normal alignment, supple, normal inspection Cardiovascular: Tachycardia; normal peripheral pulses, normal rate, regular rhythm, no gallop/murmur, no JVD Respiratory/Chest: Nasal canula; respiratory distress, crackles/rales, rhonchi - bilaterally, expiratory wheezing Abdomen: normal bowel sounds, non tender, soft, no organomegaly, no mass Extremities: normal range of motion Neurologic: calciner feeder 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, no motor/sensory deficits Skin: normal pigmentation, warm/dry Assessment/Plan Problem List: (1) Atrial flutter with rapid ventricular response Assessment & Plan: D/C coreg; start metoprolol and IV diltiazem per cardiology consult. (2) Respiratory failure Assessment & Plan: CHF and Pneumonia. Currently on nasal canula. See pulmonay note. (3) Pleuritic chest pain (4) Hemoptysis Assessment & Plan: Due to pneumonia (5) Pneumonia Assessment & Plan: Providencia and pseudamonas. RUL. AFB cultures negative- see ID consult. Continue ethambutol, amikacin, levaquin and clindamycin per ID (6) Shortness of breath (7) ESRD (end stage renal disease) on dialysis Assessment & Plan: See nephrology note. Next Hemodialysis 07/30/17 per nephrology (8) Hyperkalemia Assessment & Plan: Due to renal failure. Hemodialysis 06/13/17 per nephrology (9) COPD (chronic obstructive pulmonary disease) (10) HTN (hypertension) Assessment & Plan: Continue coreg and lisinopril. (11) CHF (congestive heart failure) (12) Elevated troponin Assessment & Plan: ?due to renal failure? See cardiology note. (13) Intractable abdominal pain Assessment & Plan: See surgery note (14) Conjunctivitis Assessment & Plan: start tobramycin (15) Diarrhea Assessment & Plan: C. Diff; resolved Assessment/Plan Discharge planning - intermediate fac ZOEY PIRES Jul 30, 2017 12:54
--- NOTE | 2017-07-30 14:01 | Pulmonology Progress Note ---
Assessment/Plan Problems: (1) Respiratory failure (2) Pneumonia (3) Rapid atrial fibrillation (4) HTN (hypertension) (5) ESRD (end stage renal disease) on dialysis (6) Anemia Assessment/Plan feeling better CXR 07/28: RUL cavitary lesion improving, donaldson are getting thinner repeat cxr weekly slowly improving onNC HD by public policy mediator prbc prn on anti TB meds wtih IV Amikacin, ethambutol and Levofloxacin continue current meds Subjective ROS Limited/Unobtainable: No Constitutional: Reports: no symptoms HEENT: Repors: no symptoms Respiratory: Reports: no symptoms Allergies: Coded Allergies: IODINE AND IODIDE CONTAINING PRODUC (Verified Allergy, Mild, itching and pruritis, 06/25/17) Uncoded Allergies: CONTRAST/DYE (Allergy, Intermediate, PRURITIS AND ITCHING, 06/25/17) Objective Last 24 Hour Vital Signs Date Time Temp Pulse Resp B/P (MAP) Pulse Ox O2 Delivery O2 Flow Rate FiO2 07/30/17 12:00 97.4 60 16 119/80 100 Room Air 97.4 07/30/17 08:43 68 123/75 07/30/17 08:42 123/75 07/30/17 08:00 97.8 68 16 123/75 91 Room Air 97.8 07/30/17 06:28 67 124/78 07/30/17 04:00 98.2 67 20 124/78 96 98.2 07/29/17 22:08 76 122/70 07/29/17 20:12 76 122/70 07/29/17 20:11 122/70 07/29/17 20:00 98.1 76 20 122/70 95 98.1 07/29/17 18:35 98.2 07/29/17 18:05 98.2 07/29/17 15:46 98.2 75 20 123/65 94 98.2 Intake and Output 07/29/17 07/30/17 19:00 07:00 Intake Total 960 ml Balance 960 ml Intake Oral 960 ml # Bowel Movements 1 Objective General Appearance: WD/WN HEENT: normocephalic, atraumatic, anicteric Respiratory/Chest: loud rhonchi Cardiovascular: normal peripheral pulses, normal rate, regular rhythm Abdomen: normal bowel sounds, soft, non tender, no organomegaly Genitourinary: normal external genitalia Extremities: no cyanosis Skin: no rash, no lesions Neurologic/Psychiatric: director drug 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, no motor/sensory deficits Lymphatic: no neck adenopathy, no groin adenopathy Current Medications Medications (Trade) Dose Ordered Sig/Jose Route PRN Reason Start Time Stop Time Status Last Admin Dose Admin Alprazolam (Xanax) 2 mg DAILYPRN PRN ORAL For Anxiety 07/23/17 19:15 07/30/17 19:14 07/29/17 16:12 Amikacin Protocol (Amikacin pharmacy to dose) 1 ea DAILY PRN MISC Per rx protocol 07/16/17 09:00 08/03/17 15:14 Bisacodyl (Dulcolax) 20 mg ONCE ORAL 07/30/17 17:00 07/30/17 18:00 Carisoprodol (Soma) 350 mg Q6H PRN ORAL Muscle Spasm 07/18/17 15:30 08/17/17 15:29 07/28/17 04:24 Chlorhexidine Gluconate (Mireille-Hex 2%) 1 applic DAILY@1999 TOPIC 07/15/17 20:00 08/02/17 19:59 07/29/17 20:13 Clindamycin HCl (Cleocin) 450 mg EVERY 6 HOURS ORAL 07/24/17 12:00 09/04/17 11:59 07/30/17 06:28 Dextrose (Dextrose 50%) 25 ml STAT PRN IV HYPOGLYCEMIA 07/16/17 08:30 08/08/17 08:29 Diltiazem HCl (Cardizem) 60 mg Q8HR ORAL 07/22/17 22:00 08/21/17 21:59 07/30/17 06:28 Ethambutol HCl (Myambutol) 1,000 mg 3XW@2099 ORAL 07/23/17 21:00 08/22/17 20:59 07/28/17 20:42 Hydromorphone HCl (Dilaudid) 2 mg Q4H PRN IVP Severe Pain (Pain Scale 7-10) 07/23/17 21:30 07/30/17 21:29 07/30/17 10:29 Levofloxacin (Levaquin) 750 mg EVERY OTHER DAY@1999 ORAL 07/23/17 20:00 07/30/17 19:59 07/29/17 20:11 Lisinopril (Prinivil) 20 mg Q12HR ORAL 07/16/17 09:00 08/15/17 08:59 07/30/17 08:42 Metoprolol Tartrate (Lopressor) 100 mg Q12HR ORAL 07/15/17 21:00 08/10/17 20:59 07/30/17 08:43 Ondansetron HCl (Zofran) 4 mg Q6H PRN IVP Nausea & Vomiting 07/18/17 15:30 08/17/17 15:29 07/28/17 01:19 Pantoprazole (Protonix) 40 mg BID ORAL 07/27/17 18:00 08/26/17 17:59 07/30/17 08:42 Temazepam (Restoril) 15 mg HSPRN PRN ORAL Insomnia 07/29/17 21:00 08/05/17 20:59 Christine Morgan MD Jul 30, 2017 14:01
--- NOTE | 2017-07-30 15:25 | Nephrology Progress Note ---
Assessment/Plan Problem List: (1) ESRD (end stage renal disease) on dialysis (2) Shortness of breath (3) Anemia Assessment Anemia ESRD , missed HD on admission , admitted with high K and pulmonary edema Acute respiratory distress due to volume overload elevated troponin r/o ACS h/o COPD ? exacerbation HTN urgency Cardiomyopathy L AICD anemia of chronic kidney disease Hx of CVA Plan Plan: HD last 07/25- will care for high K with HD Next HD 07/30 Kayexelate PRN Max UF Transfused Phos binders BP meds adjustment Optimize cardiac status per orders Subjective ROS Limited/Unobtainable: No Objective Objective Last 24 Hour Vital Signs Date Time Temp Pulse Resp B/P (MAP) Pulse Ox O2 Delivery O2 Flow Rate FiO2 07/30/17 14:00 63 116/72 07/30/17 12:00 97.4 60 16 119/80 100 Room Air 97.4 07/30/17 08:43 68 123/75 07/30/17 08:42 123/75 07/30/17 08:00 97.8 68 16 123/75 91 Room Air 97.8 07/30/17 06:28 67 124/78 07/30/17 04:00 98.2 67 20 124/78 96 98.2 07/29/17 22:08 76 122/70 07/29/17 20:12 76 122/70 07/29/17 20:11 122/70 07/29/17 20:00 98.1 76 20 122/70 95 98.1 07/29/17 18:35 98.2 07/29/17 18:05 98.2 07/29/17 15:46 98.2 75 20 123/65 94 98.2 Intake and Output 07/29/17 07/30/17 19:00 07:00 Intake Total 960 ml Balance 960 ml Intake Oral 960 ml # Bowel Movements 1 Height (Feet): 5 Height (Inches): 7.00 Weight (Pounds): 199 General Appearance: no apparent distress Cardiovascular: normal rate Respiratory/Chest: decreased breath sounds Abdomen: distended Objective no change LIAM MONTELONGO Jul 30, 2017 15:24
--- NOTE | 2017-07-30 16:10 | Infectious Diseases Prog Note ---
Assessment/Plan Assessment/Plan Cavitary PNA. SCx: Neg ( m/l anaerobic abscess than necrotizing Pneum , doubt TB or fungal ) ; improving - 07/09 SP BAL Cx( Abby and MOJGAN : Colonizers ) , Path : Neg for fungus and Malignancy -CXR 07/28: Possibly improving right lung cavitary lesion, over 7 days Otherwise unchanged findings as described. - Ch-CT 07/15 : The overall lesion appears smaller, measuring 6.3 cm AP by 3.6 cm transverse by 2.3 cm craniocaudad currently -CT chest 06/25: Since the prior study of 06/15/2017, and. From further reduction in size of previously demonstrated thick walled right upper lobe cavitary mass. This was previously thought to most likely represent a cavitary inflammatory mass, and the interim reduction in size certainly supports that. Much less likely a cavitary neoplasm, but follow-up to resolution is recommended. Markedly improved parenchymal disease bilaterally, since the previous study. Nonetheless , extensive atelectasis and groundglass consolidation persists. Persistent small right pleural effusion, smaller than on the prior study. Resolved left pleural effusion 6 mm nodular opacity in the right upper lobe, not evident previously but likely obscured by surrounding consolidated lung parenchyma. This should be followed up in 6 months to one year depending on results of interim follow-up exams T-SPOT :Neg Culture and stain AFB x 3 : Neg MTB PCR x2 : neg cryptococcus Ag, Histoplams mycelial Ab , Blastomyces ab : neg ; histoplasma yeast ab (not able to be done due to anticomplementary activity) -Cocci, Asp ag p -Fungitell + 144 (?aspergillosis vs m/l false positive) CT chest 06/15: Slightly smaller (6 cm diameter ) but mostly unchanged cavitary lesion in the right lung, previously thought to represent a cavitating inflammatory process. Lung abscess is certainly a possibility. Fairly extensive bilateral pulmonary parenchymal consolidation, slightly increased from previous exam of 06/05/2017. Likely a combination of pulmonary edema and pneumonia. Small right and trace left pleural effusion, new/increased from the previous study. CT 06/05: 7.8 x 5.3 x 6.6 cm dense opacity in the posterior inferior right upper lobe with a central cavitation. CRP 14 Influenza negative Coccidioidal ,Galactomannan : NEG ( PER LAB ) Transaminitis , improved after stopping rifampin 2/2 Hep C cirrhosis- no active Hep C as VL not detected -CT abd/p: Evidence of hepatic cirrhosis. Hepatosplenomegaly. evidence of generalized anasarca, with pleural fluid and generalized subcutaneous edema. Cholelithiasis, also previously reported. Possible diverticulosis. No evidence of diverticulitis US Abd : Cholelithiasis. There is gallbladder wall thickening, likely related to hemodynamic abnormalities Splenomegaly. Evidence of hepatic cirrhosis HIV : NEG Hep Panel B neg , C Ab : +ve , VL not detected leukopenia and TCP 2/2 splenomegaly Seizure disorder History of CVA History of pacemaker placement Hyperlipidemia Hypertension COPD/asthma End-stage renal disease, on hemodialysis Diabetes Anxiety Anemia Echo, ejection fraction 45% to 50%. PLAN: - Cont oral Clinda d# 15 ( till resolution/ stabilization of abscess) ( abx d# 53 ) Continue Ethambutol and Levaquin, Amikacin ( empiric TB AB Rx d# 43 TB control they want to cont TB Meds regardless of AFB Cultures Neg x 3 (called : 07/22 ) ) -Advised pain regimen to be switched to PO to be able to d/c R IJ as has be present since 06/05- risk for DVT, bacteremia, PTX -Amikacin can be switched to IM 07/16 SP Zoysn d# 9 ( for SOB and CXR worsen , better coverage of anaerobes, PSA and Providencia ); 07/07 Flagyl 07/06 SP Voriconazole ( low antonio for fungal infection , and in the setting of cirrhosis ) 07/05 SP Micafungin abx d#20 , Rifampin 600mg qd #10 07/01 SP Ceftriaxone #10 06/28 SP Amikacin #15 06/25 SP PO Voriconazole #3 06/20 SP Liposomal Ampho #8 06/17 SP IV Vancomycin #14, Meropenem #5 06/13 SP Zosyn d# 10 06/08 SP Zithromax D# 6 BAL fungal and AFB Cx : P - CMP Discussed with RN, Dr Calloway. Tried contacting payroll accounting manager; they were already gone for the day. Subjective Allergies: Coded Allergies: IODINE AND IODIDE CONTAINING PRODUC (Verified Allergy, Mild, itching and pruritis, 06/25/17) Uncoded Allergies: CONTRAST/DYE (Allergy, Intermediate, PRURITIS AND ITCHING, 06/25/17) Subjective afebrile no leukocytosis Objective Vital Signs Last 24 Hour Vital Signs Date Time Temp Pulse Resp B/P (MAP) Pulse Ox O2 Delivery O2 Flow Rate FiO2 07/30/17 14:00 63 116/72 07/30/17 12:00 97.4 60 16 119/80 100 Room Air 97.4 07/30/17 08:43 68 123/75 07/30/17 08:42 123/75 07/30/17 08:00 97.8 68 16 123/75 91 Room Air 97.8 07/30/17 06:28 67 124/78 07/30/17 04:00 98.2 67 20 124/78 96 98.2 07/29/17 22:08 76 122/70 07/29/17 20:12 76 122/70 07/29/17 20:11 122/70 07/29/17 20:00 98.1 76 20 122/70 95 98.1 07/29/17 18:35 98.2 07/29/17 18:05 98.2 Height (Feet): 5 Height (Inches): 7.00 Weight (Pounds): 199 Objective General Appearance: WD/WN, alert, moderate distress EENT: PERRL/EOMI, normal ENT inspection Neck: non-tender, normal alignment, supple, normal inspection Cardiovascular: normal peripheral pulses, normal rate, regular rhythm, no gallop/murmur, no JVD Respiratory/Chest: Non rebreather; respiratory distress, crackles/rales, rhonchi - bilaterally, expiratory wheezing Abdomen: normal bowel sounds, non tender, soft, no organomegaly, no mass Extremities: normal range of motion Neurologic: firearms sales associate 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, no motor/sensory deficits Skin: normal pigmentation, warm/dry Current Medications Medications (Trade) Dose Ordered Sig/Jose Route PRN Reason Start Time Stop Time Status Last Admin Dose Admin Alprazolam (Xanax) 2 mg DAILYPRN PRN ORAL For Anxiety 07/23/17 19:15 07/30/17 19:14 07/29/17 16:12 Amikacin Protocol (Amikacin pharmacy to dose) 1 ea DAILY PRN MISC Per rx protocol 07/16/17 09:00 08/03/17 15:14 Bisacodyl (Dulcolax) 20 mg ONCE ORAL 07/30/17 17:00 07/30/17 18:00 Carisoprodol (Soma) 350 mg Q6H PRN ORAL Muscle Spasm 07/18/17 15:30 08/17/17 15:29 07/28/17 04:24 Chlorhexidine Gluconate (Mireille-Hex 2%) 1 applic DAILY@1999 TOPIC 07/15/17 20:00 08/02/17 19:59 07/29/17 20:13 Clindamycin HCl (Cleocin) 450 mg EVERY 6 HOURS ORAL 07/24/17 12:00 09/04/17 11:59 07/30/17 06:28 Dextrose (Dextrose 50%) 25 ml STAT PRN IV HYPOGLYCEMIA 07/16/17 08:30 08/08/17 08:29 Diltiazem HCl (Cardizem) 60 mg Q8HR ORAL 07/22/17 22:00 08/21/17 21:59 07/30/17 06:28 Ethambutol HCl (Myambutol) 1,000 mg 3XW@2099 ORAL 07/23/17 21:00 08/22/17 20:59 07/28/17 20:42 Hydromorphone HCl (Dilaudid) 2 mg Q4H PRN IVP Severe Pain (Pain Scale 7-10) 07/23/17 21:30 07/30/17 21:29 07/30/17 14:42 Levofloxacin (Levaquin) 750 mg EVERY OTHER DAY@1999 ORAL 07/23/17 20:00 07/30/17 19:59 07/29/17 20:11 Lisinopril (Prinivil) 20 mg Q12HR ORAL 07/16/17 09:00 08/15/17 08:59 07/30/17 08:42 Metoprolol Tartrate (Lopressor) 100 mg Q12HR ORAL 07/15/17 21:00 08/10/17 20:59 07/30/17 08:43 Ondansetron HCl (Zofran) 4 mg Q6H PRN IVP Nausea & Vomiting 07/18/17 15:30 08/17/17 15:29 07/28/17 01:19 Pantoprazole (Protonix) 40 mg BID ORAL 07/27/17 18:00 08/26/17 17:59 07/30/17 08:42 Temazepam (Restoril) 15 mg HSPRN PRN ORAL Insomnia 07/29/17 21:00 08/05/17 20:59 Aleja Crocker M.D. Jul 30, 2017 16:10
[2017-07-30] MEDS: ALPRAZolam 0.5mg tab ORAL PRN (16:56)
[2017-07-30] MEDS ORDERED: Bisacodyl EC 5mg tab ORAL SCH (17:00)
--- NOTE | 2017-07-30 20:50 | General Progress Note ---
Assessment/Plan Assessment/Plan Assessment - gallstones - abnormal LFT / cirrhosis - Periodic N/V with abnormal GB ultrasound, ? possibly biliary colic - patient declined HIDA - Anemia, multifactorial - OB (+) Stool - EGD / Colonoscopy scheduled for - ESRD/HD - DM - HTN - COPD - Cavitary lung disease - Thrombocytopenia - cirrhotic appearing liver on CT - Hepatitis C Ab (+)/ PCR (-) - Poor prognosis Recommendations - PO as tolerated - follow symptoms and exam - monitor LFT - avoid hepatotoxic meds - BID PPI - monitor CBC - anticoagulation on hold for EGD/Colonoscopy - abx per ID Subjective Allergies: Coded Allergies: IODINE AND IODIDE CONTAINING PRODUC (Verified Allergy, Mild, itching and pruritis, 06/25/17) Uncoded Allergies: CONTRAST/DYE (Allergy, Intermediate, PRURITIS AND ITCHING, 06/25/17) Subjective Feels OK (+) loose BM with prep on clears EGD / Colonoscopy scheduled for Tomorrow Objective Last 24 Hour Vital Signs Date Time Temp Pulse Resp B/P (MAP) Pulse Ox O2 Delivery O2 Flow Rate FiO2 07/30/17 20:21 Nasal Cannula 2.0 28 07/30/17 20:21 96 Nasal Cannula 2.0 28 07/30/17 20:00 98.6 73 22 117/72 96 98.6 07/30/17 16:00 97.0 76 17 133/81 100 Room Air 97.0 07/30/17 14:00 63 116/72 07/30/17 12:00 97.4 60 16 119/80 100 Room Air 97.4 07/30/17 08:43 68 123/75 07/30/17 08:42 123/75 07/30/17 08:00 97.8 68 16 123/75 91 Room Air 97.8 07/30/17 06:28 67 124/78 07/30/17 04:00 98.2 67 20 124/78 96 98.2 07/29/17 22:08 76 122/70 Intake and Output 07/29/17 07/30/17 19:00 07:00 Intake Total 960 ml Balance 960 ml Intake Oral 960 ml # Bowel Movements 1 Height (Feet): 5 Height (Inches): 7.00 Weight (Pounds): 199 Objective WDWN AA Man NCAT supple CTA RRR Soft mildly distended, (+) trunk edema (++) leg edema PERCY JOYNER Jul 30, 2017 20:50
[2017-07-30] MEDS: Dyna-Hex 2% Top Sol 2oz TOPIC SCH (21:36)
[2017-07-30 21:56] LABS: HEMATOCRIT 26.4 % (42.0-52.0); HEMOGLOBIN 8.4 G/DL (14.2-18.0); MEAN CORPUSCULAR VOLUME 98 FL (80-99); PLATELET COUNT 83 K/UL (150-450); RED CELL DISTRIBUTION WIDTH 13.1 % (11.6-14.8); WHITE BLOOD COUNT 4.5 K/UL (4.8-10.8)
[2017-07-30 22:13] LABS: ALANINE AMINOTRANSFERASE 16 U/L (12-78); ALBUMIN 2.7 G/DL (3.4-5.0); ALBUMIN/GLOBULIN RATIO 0.6 (1.0-2.7); ALKALINE PHOSPHATASE 178 U/L (46-116); ANION GAP 16 mmol/L (5-15); ASPARTATE AMINO TRANSFERASE 31 U/L (15-37); BILIRUBIN,TOTAL 0.9 MG/DL (0.2-1.0); BLOOD UREA NITROGEN 61 mg/dL (7-18); CALCIUM 8.4 MG/DL (8.5-10.1); CARBON DIOXIDE 23 MMOL/L (21-32); CHLORIDE 97 MMOL/L (98-107); CREATININE 12.5 MG/DL (0.55-1.30); POTASSIUM 5.1 MMOL/L (3.5-5.1); SODIUM 136 MMOL/L (136-145)
--- NOTE | 2017-07-30 23:48 | General Progress Note ---
Assessment/Plan Assessment/Plan #. Anemia secondary to chronic disease. --> Hemoglobin levels above goal. No blood transfusion required at this time. --> S/P abd CAT scan revealing evidence of hepatic cirrhosis. --> Continue to closely monitor and trend cbc daily. --> Anemia workup completed and reviewed. Iron 42, TIBC 180, Ferritin 593, B12 876. --> Ferritin is >500, hgb goal is >7 --> Anemia w/u has been reviewed --> ++Occult blood. Consider GI Services and Recs. --> EGD has been scheduled #. Left leg dvt --> acute onset, will need to review final duplex results --> on apixaban daily x 3 months, H/H has been stable. INR improved. --> okay to change to different anticoagulant if renal clearance an issue --> If h/h downtrends below 7.5, consider ivc filter placement. --> Hemoglobin currently >7.5 #. Thrombocytopenia. --> Hepatitis C ab ++, PCR - --> Monitor platelet level. Transfuse if platelet count <20k --> Levels remain low. # Hepatosplenomegaly. Ascites. There is also evidence of generalized anasarca, with pleural fluid and generalized subcutaneous edema --> Abd pain improved on pain management --> Refer to surgery note. #. Anemia of kidney disease --> HD as needed per nephrology team --> Monitor closely. --> Does not require iron at this time #. Generalized body ache related to fluid overload. #. End-stage renal disease, on hemodialysis as needed --> Pending HD. #. Respiratory failure due to CHF and pneumonia. --> Providencia and pseudomonas. --> On vancomycin and ethambutol per ID. --> Chest pain improved at this time, on pain management. #. Shortness of breath. Due to underlying pneumonia. #. Atrial flutter with rapid ventricular response. On metoprolol and diltiazem. #. Conjunctivitis. Begin tobramycin. On anti TB treatment. On Amikacin and ethambutol. Continue telemetry. Poor prognosis Subjective Date patient seen: Jul 30, 2017 Constitutional: Denies: no symptoms, chills, diaphoresis, fever, malaise, weakness, other HEENT: Denies: no symptoms, eye pain, blurred vision, tearing, double vision, ear pain, ear discharge, nose pain, nose congestion, throat pain, throat swelling, mouth pain, mouth swelling, other Cardiovascular: Denies: no symptoms, chest pain, edema, irregular heart rate, lightheadedness, palpitations, syncope, other Respiratory: Denies: no symptoms, cough, orthopnea, shortness of breath, SOB with excertion, SOB at rest, sputum, stridor, wheezing, other Gastrointestinal/Abdominal: Denies: no symptoms, abdomen distended, abdominal pain, black stools, tarry stools, blood in stool, constipated, diarrhea, difficulty swallowing, nausea, poor appetite, poor fluid intake, rectal bleeding , vomiting, other Genitourinary: Denies: no symptoms, burning, discharge, frequency, flank pain, hematuria, incontinence, pain, urgency, other Neurologic/Psychiatric: Denies: no symptoms, anxiety, depressed, emotional problems, headache, numbness, paresthesia, pre-existing deficit, seizure, tingling, tremors, weakness, other Hematologic/Lymphatic: Reports: anemia Allergies: Coded Allergies: IODINE AND IODIDE CONTAINING PRODUC (Verified Allergy, Mild, itching and pruritis, 06/25/17) Uncoded Allergies: CONTRAST/DYE (Allergy, Intermediate, PRURITIS AND ITCHING, 06/25/17) Subjective On pain control. Pending HD. No fever. Objective Last 24 Hour Vital Signs Date Time Temp Pulse Resp B/P (MAP) Pulse Ox O2 Delivery O2 Flow Rate FiO2 07/30/17 22:00 73 117/72 07/30/17 21:00 73 117/72 07/30/17 21:00 117/72 07/30/17 20:30 Room Air 07/30/17 20:30 97.8 73 16 117/72 Room Air 97.8 07/30/17 20:21 Nasal Cannula 2.0 28 07/30/17 20:21 96 Nasal Cannula 2.0 28 07/30/17 20:00 98.6 73 22 117/72 96 98.6 07/30/17 16:00 97.0 76 17 133/81 100 Room Air 97.0 07/30/17 14:00 63 116/72 07/30/17 12:00 97.4 60 16 119/80 100 Room Air 97.4 07/30/17 08:43 68 123/75 07/30/17 08:42 123/75 07/30/17 08:00 97.8 68 16 123/75 91 Room Air 97.8 07/30/17 06:28 67 124/78 07/30/17 04:00 98.2 67 20 124/78 96 98.2 Intake and Output 07/29/17 07/30/17 19:00 07:00 Intake Total 960 ml Balance 960 ml Intake Oral 960 ml # Bowel Movements 1 Laboratory Tests 07/30/17 21:00: White Blood Count 4.5L, Red Blood Count 2.70L, Hemoglobin 8.4L, Hematocrit 26.4L , Mean Corpuscular Volume 98, Mean Corpuscular Hemoglobin 31.1H, Mean Corpuscular Hemoglobin Concent 31.7L, Red Cell Distribution Width 13.1, Platelet Count 83L, Mean Platelet Volume 8.3, Neutrophils (%) (Auto) , Lymphocytes (%) (Auto) , Monocytes (%) (Auto) , Eosinophils (%) (Auto) , Basophils (%) (Auto) , Differential Total Cells Counted 100, Neutrophils % ( Manual) 31L, Lymphocytes % (Manual) 29, Monocytes % (Manual) 23H, Eosinophils % (Manual) 15H, Basophils % (Manual) 2, Band Neutrophils 0, Platelet Estimate DecreasedL, Platelet Morphology Normal, Polychromasia 1+, Hypochromasia 1+, Macrocytosis 2+, Sodium Level 136, Potassium Level 5.1, Chloride Level 97L, Carbon Dioxide Level 23, Anion Gap 16H, Blood Urea Nitrogen 61H, Creatinine 12.5H, Estimat Glomerular Filtration Rate 5.1, Glucose Level 90, Calcium Level 8.4L, Total Bilirubin 0.9, Aspartate Amino Transf (AST/SGOT) 31, Alanine Aminotransferase (ALT/SGPT) 16, Alkaline Phosphatase 178H, Total Protein 7.5, Albumin 2.7L, Globulin 4.8, Albumin/Globulin Ratio 0.6L Height (Feet): 5 Height (Inches): 7.00 Weight (Pounds): 199 General Appearance: confused Respiratory/Chest: decreased breath sounds ZAK RUIZ Jul 30, 2017 23:48
[2017-07-31] VITALS (8 sets, daily range): BP systolic 112–158; BP diastolic 63–89
[2017-07-31] MEDS: Clindamycin 150mg cap ORAL SCH ×4 (05:39→23:16)
[2017-07-31] MEDS: dilTIAZem HCl 60mg tab ORAL SCH ×3 (05:40→21:49)
[2017-07-31 06:56] LABS: HEMATOCRIT 25.7 % (42.0-52.0); HEMOGLOBIN 8.3 G/DL (14.2-18.0); MEAN CORPUSCULAR VOLUME 97 FL (80-99); PLATELET COUNT 72 K/UL (150-450); RED BLOOD COUNT 2.64 M/UL (4.70-6.10); RED CELL DISTRIBUTION WIDTH 12.7 % (11.6-14.8); WHITE BLOOD COUNT 4.1 K/UL (4.8-10.8)
[2017-07-31 07:00] LABS: ALANINE AMINOTRANSFERASE 13 U/L (12-78); ALBUMIN 2.6 G/DL (3.4-5.0); ALBUMIN/GLOBULIN RATIO 0.6 (1.0-2.7); ALKALINE PHOSPHATASE 179 U/L (46-116); ANION GAP 11 mmol/L (5-15); ASPARTATE AMINO TRANSFERASE 26 U/L (15-37); BILIRUBIN,TOTAL 1.2 MG/DL (0.2-1.0); BLOOD UREA NITROGEN 43 mg/dL (7-18); CALCIUM 8.7 MG/DL (8.5-10.1); CARBON DIOXIDE 31 MMOL/L (21-32); CHLORIDE 98 MMOL/L (98-107); POTASSIUM 3.9 MMOL/L (3.5-5.1); SODIUM 139 MMOL/L (136-145)
[2017-07-31] MEDS ORDERED: Propofol 200mg/20ml IV ONE (07:30)
[2017-07-31] MEDS ORDERED: Lidocaine 1% MPF 10mg/ml 5ml ONE (07:30)
[2017-07-31 07:38] LABS: BILIRUBIN,DIRECT 0.6 MG/DL (0.0-0.3)
[2017-07-31 07:43] LABS: INR 1.4 (0.9-1.1)
--- NOTE | 2017-07-31 08:08 | Anethesia Preoperative Eval ---
Anesthesia Pre-op PMH/ROS General Date of Evaluation: Jul 31, 2017 Time of Evaluation: 07:54 Anesthesiologist: braxton ASA Score: ASA 4 Mallampati Score Class I : Soft palate, uvula, fauces, pillars visible Class II: Soft palate, uvula, fauces visible Class III: Soft palate, base of uvula visible Class IV: Only hard plate visible Mallampati Classification: Class II Surgeon: ariadne Diagnosis: gi bleed Surgical Procedure: egd/colonoscopy Social History: current smoker Family History: no anesthesia problems Allergies: Coded Allergies: IODINE AND IODIDE CONTAINING PRODUC (Verified Allergy, Mild, itching and pruritis, 06/25/17) Uncoded Allergies: CONTRAST/DYE (Allergy, Intermediate, PRURITIS AND ITCHING, 06/25/17) Medications: see eMAR Past Medical History Cardiovascular: Reports: HTN, arrhythmia, other - pacemaker Pulmonary: Reports: COPD Gastrointestinal/Genitourinary: Reports: ESRD Neurologic/Psychiatric: Reports: depression/anxiety, other - seizure Endocrine: Reports: DM Hematology/Immune: Reports: anemia Musculoskeletal/Integumentary: Reports: other - back pain Anesthesia Pre-op Phys. Exam Physician Exam Last Vital Signs Date Time Temp Pulse Resp B/P (MAP) Pulse Ox O2 Delivery O2 Flow Rate FiO2 07/31/17 05:40 74 137/79 07/31/17 04:00 98.6 19 92 98.6 07/31/17 00:00 Nasal Cannula 07/30/17 20:21 2.0 28 Constitutional: NAD Neurologic: CN 2-12 intact Cardiovascular: RRR Respiratory: CTA Gastrointestinal: S/NT/ND Airway Exam Mallampati Score: Class II MO: limited Neck: right ij TMD: 2fb ROM: limited Teeth: missing, broken, loose Anesthesia Pre-op A/P Labs Hematology Test 07/30/17 21:00 07/31/17 05:50 White Blood Count 4.5 K/UL (4.8-10.8) L 4.1 K/UL (4.8-10.8) L Red Blood Count 2.70 M/UL (4.70-6.10) L 2.64 M/UL (4.70-6.10) L Hemoglobin 8.4 G/DL (14.2-18.0) L 8.3 G/DL (14.2-18.0) L Hematocrit 26.4 % (42.0-52.0) L 25.7 % (42.0-52.0) L Mean Corpuscular Volume 98 FL (80-99) 97 FL (80-99) Mean Corpuscular Hemoglobin 31.1 PG (27.0-31.0) H 31.3 PG (27.0-31.0) H Mean Corpuscular Hemoglobin Concent 31.7 G/DL (32.0-36.0) L 32.2 G/DL (32.0-36.0) Red Cell Distribution Width 13.1 % (11.6-14.8) 12.7 % (11.6-14.8) Platelet Count 83 K/UL (150-450) L 72 K/UL (150-450) L Mean Platelet Volume 8.3 FL (6.5-10.1) 8.4 FL (6.5-10.1) Neutrophils (%) (Auto) % (45.0-75.0) % (45.0-75.0) Lymphocytes (%) (Auto) % (20.0-45.0) % (20.0-45.0) Monocytes (%) (Auto) % (1.0-10.0) % (1.0-10.0) Eosinophils (%) (Auto) % (0.0-3.0) % (0.0-3.0) Basophils (%) (Auto) % (0.0-2.0) % (0.0-2.0) Differential Total Cells Counted 100 Neutrophils % (Manual) 31 % (45-75) L Pending Lymphocytes % (Manual) 29 % (20-45) Pending Monocytes % (Manual) 23 % (1-10) H Eosinophils % (Manual) 15 % (0-3) H Basophils % (Manual) 2 % (0-2) Band Neutrophils 0 % (0-8) Platelet Estimate Decreased L Pending Platelet Morphology Normal Pending Polychromasia 1+ Hypochromasia 1+ Macrocytosis 2+ Coagulation Test 07/31/17 07:15 Prothrombin Time 14.9 SEC (9.30-11.50) H Prothromb Time International Ratio 1.4 (0.9-1.1) H Activated Partial Thromboplast Time 34 SEC (23-33) H Chemistry Test 07/30/17 21:00 07/31/17 05:50 Sodium Level 136 MMOL/L (136-145) 139 MMOL/L (136-145) Potassium Level 5.1 MMOL/L (3.5-5.1) 3.9 MMOL/L (3.5-5.1) Chloride Level 97 MMOL/L (98-107) L 98 MMOL/L (98-107) Carbon Dioxide Level 23 MMOL/L (21-32) 31 MMOL/L (21-32) Anion Gap 16 mmol/L (5-15) H 11 mmol/L (5-15) Blood Urea Nitrogen 61 mg/dL (7-18) H 43 mg/dL (7-18) H Creatinine 12.5 MG/DL (0.55-1.30) H 10.0 MG/DL (0.55-1.30) H Estimat Glomerular Filtration Rate 5.1 mL/min (>60) 6.5 mL/min (>60) Glucose Level 90 MG/DL (74-106) 71 MG/DL (74-106) L Calcium Level 8.4 MG/DL (8.5-10.1) L 8.7 MG/DL (8.5-10.1) Total Bilirubin 0.9 MG/DL (0.2-1.0) 1.2 MG/DL (0.2-1.0) H Aspartate Amino Transf (AST/SGOT) 31 U/L (15-37) 26 U/L (15-37) Alanine Aminotransferase (ALT/SGPT) 16 U/L (12-78) 13 U/L (12-78) Alkaline Phosphatase 178 U/L (46-116) H 179 U/L (46-116) H Total Protein 7.5 G/DL (6.4-8.2) 7.3 G/DL (6.4-8.2) Albumin 2.7 G/DL (3.4-5.0) L 2.6 G/DL (3.4-5.0) L Globulin 4.8 g/dL 4.7 g/dL Albumin/Globulin Ratio 0.6 (1.0-2.7) L 0.6 (1.0-2.7) L Direct Bilirubin 0.6 MG/DL (0.0-0.3) H Studies Pre-op Studies: EKG - afib Risk Assessment & Plan Assessment: [email or web address] Plan: mac Status Change Before Surgery: No Pre-Antibiotics Drug: ADINA Mead Jul 31, 2017 08:08
--- NOTE | 2017-07-31 08:11 | Pre-Procedure Note/Attestation ---
Pre-Procedure Note/Attestation Complete Prior to Procedure Planned Procedure: not applicable Procedure Narrative: egd/colon Indications for Procedure Pre-Operative Diagnosis: heme (+) Attestation I attest that I discussed the nature of the procedure; its benefits; risks and complications; and alternatives (and the risks and benefits of such alternatives ), prior to the procedure, with the patient (or the patient's legal motor vehicle field representative). I attest that, if there was a reasonable possibility of needing a blood transfusion, the patient (or the patient's legal motor vehicle field representative) was given the [facility] standardized written summary, pursuant to the Jonathan Teto Blood Safety Act ([place] Health and Safety Code # 1645, as amended). I attest that I re-evaluated the patient just prior to the surgery and that there has been no change in the patient's H&P, except as documented below: PERCY JOYNER Jul 31, 2017 08:11
--- NOTE | 2017-07-31 08:12 | General Progress Note ---
Assessment/Plan Assessment/Plan Assessment - gallstones - abnormal LFT / cirrhosis - Periodic N/V with abnormal GB ultrasound, ? possibly biliary colic - patient declined HIDA - Anemia, multifactorial - OB (+) Stool - ESRD/HD - DM - HTN - COPD - Cavitary lung disease - Thrombocytopenia - cirrhotic appearing liver on CT - Hepatitis C Ab (+)/ PCR (-) - Poor prognosis Recommendations - EGD/colon today - follow symptoms and exam - monitor LFT - avoid hepatotoxic meds - BID PPI - monitor CBC - abx per ID POST PROCEDURE NOTE EGD: Portal HTN gastropathy, esophageal white plaques (likely fungal) - sent for fungal culture Colon: Mild hemorrhoids Recommendations: resume PO and resume anticoagulation Subjective Allergies: Coded Allergies: IODINE AND IODIDE CONTAINING PRODUC (Verified Allergy, Mild, itching and pruritis, 06/25/17) Uncoded Allergies: CONTRAST/DYE (Allergy, Intermediate, PRURITIS AND ITCHING, 06/25/17) Subjective Feels OK (+) loose BM with prep NPO for EGD/Colon coags noted Objective Last 24 Hour Vital Signs Date Time Temp Pulse Resp B/P (MAP) Pulse Ox O2 Delivery O2 Flow Rate FiO2 07/31/17 05:40 74 137/79 07/31/17 04:00 98.6 74 19 137/79 92 98.6 07/31/17 00:00 97.2 83 20 158/89 92 Nasal Cannula 97.2 07/30/17 23:50 Room Air 07/30/17 23:47 98.2 77 16 146/90 98.2 07/30/17 22:00 73 117/72 07/30/17 21:00 73 117/72 07/30/17 21:00 117/72 07/30/17 20:30 Room Air 07/30/17 20:30 97.8 73 16 117/72 Room Air 97.8 07/30/17 20:21 Nasal Cannula 2.0 28 07/30/17 20:21 96 Nasal Cannula 2.0 28 07/30/17 20:00 98.6 73 22 117/72 96 98.6 07/30/17 16:00 97.0 76 17 133/81 100 Room Air 97.0 07/30/17 14:00 63 116/72 07/30/17 12:00 97.4 60 16 119/80 100 Room Air 97.4 07/30/17 08:43 68 123/75 07/30/17 08:42 123/75 Intake and Output 07/30/17 07/31/17 19:00 07:00 Intake Total 800 ml 480 ml Output Total 4000 ml Balance 800 ml -3520 ml Intake Oral 800 ml 480 ml Hemodialysis UF 4000 ml # Bowel Movements 4 Laboratory Tests 07/30/17 21:00: White Blood Count 4.5L, Red Blood Count 2.70L, Hemoglobin 8.4L, Hematocrit 26.4L , Mean Corpuscular Volume 98, Mean Corpuscular Hemoglobin 31.1H, Mean Corpuscular Hemoglobin Concent 31.7L, Red Cell Distribution Width 13.1, Platelet Count 83L, Mean Platelet Volume 8.3, Neutrophils (%) (Auto) , Lymphocytes (%) (Auto) , Monocytes (%) (Auto) , Eosinophils (%) (Auto) , Basophils (%) (Auto) , Differential Total Cells Counted 100, Neutrophils % ( Manual) 31L, Lymphocytes % (Manual) 29, Monocytes % (Manual) 23H, Eosinophils % (Manual) 15H, Basophils % (Manual) 2, Band Neutrophils 0, Platelet Estimate DecreasedL, Platelet Morphology Normal, Polychromasia 1+, Hypochromasia 1+, Macrocytosis 2+, Sodium Level 136, Potassium Level 5.1, Chloride Level 97L, Carbon Dioxide Level 23, Anion Gap 16H, Blood Urea Nitrogen 61H, Creatinine 12.5H, Estimat Glomerular Filtration Rate 5.1, Glucose Level 90, Calcium Level 8.4L, Total Bilirubin 0.9, Aspartate Amino Transf (AST/SGOT) 31, Alanine Aminotransferase (ALT/SGPT) 16, Alkaline Phosphatase 178H, Total Protein 7.5, Albumin 2.7L, Globulin 4.8, Albumin/Globulin Ratio 0.6L 07/31/17 05:50: White Blood Count 4.1L, Red Blood Count 2.64L, Hemoglobin 8.3L, Hematocrit 25.7L , Mean Corpuscular Volume 97, Mean Corpuscular Hemoglobin 31.3H, Mean Corpuscular Hemoglobin Concent 32.2, Red Cell Distribution Width 12.7, Platelet Count 72L, Mean Platelet Volume 8.4, Neutrophils (%) (Auto) , Lymphocytes (%) ( Auto) , Monocytes (%) (Auto) , Eosinophils (%) (Auto) , Basophils (%) (Auto) , Neutrophils % (Manual) [Pending], Lymphocytes % (Manual) [Pending], Platelet Estimate [Pending], Platelet Morphology [Pending], Sodium Level 139, Potassium Level 3.9, Chloride Level 98, Carbon Dioxide Level 31, Anion Gap 11, Blood Urea Nitrogen 43H, Creatinine 10.0H, Estimat Glomerular Filtration Rate 6.5, Glucose Level 71L, Calcium Level 8.7, Total Bilirubin 1.2H, Aspartate Amino Transf (AST/ SGOT) 26, Alanine Aminotransferase (ALT/SGPT) 13, Alkaline Phosphatase 179H, Total Protein 7.3, Albumin 2.6L, Globulin 4.7, Albumin/Globulin Ratio 0.6L, Direct Bilirubin 0.6H 07/31/17 07:15: Prothrombin Time 14.9H, Prothromb Time International Ratio 1.4H, Activated Partial Thromboplast Time 34H Height (Feet): 5 Height (Inches): 5.00 Weight (Pounds): 193 Objective WDWN AA Man NCAT supple CTA RRR Soft mildly distended, (+) trunk edema (++) leg edema PERCY JOYNER Jul 31, 2017 08:12
[2017-07-31] MEDS ORDERED: fentaNYL 100 mcg/2 mL IV PRN (08:15)
[2017-07-31] MEDS ORDERED: DiphenhydrAMINE 50mg/ml Inj IVP PRN (08:15)
[2017-07-31] MEDS ORDERED: D5NS 1000ml IV ONE (08:15)
[2017-07-31] MEDS ORDERED: Atropine Inj 1mg/10ml Syr IV PRN (08:15)
--- NOTE | 2017-07-31 09:01 | Endoscopy Procedure Note ---
Endoscopy Procedure Note General Indication for Procedure: Heme (+) Procedures Performed: EGD, colonoscopy Operative Findings/Diagnosis: PHG, Esophageal plaques, hemorrhoids Specimen: none Pt Tolerated Procedure Well: Yes Estimated Blood Loss: none Anesthesia Anesthesiologist: hyacinth Dhaliwal MD Anesthesia: MAC Medications Medication Given: see anesthesia record Inserted Devices Implant(s) used?: No GI Core Measures 50 yrs or older w/o bx or poly: Not Applicable 10yrs. F/U not recommended: Not Applicable If not recommended, why?: PERCY JOYNER Jul 31, 2017 09:01
--- NOTE | 2017-07-31 09:02 | Brief Operative Note ---
Immediate Post Operative Note Operative Note Chief Complaint: HEME (+) Pre-op Diagnosis: heme (+) Procedure: esophagogastroduodenoscopy colon Post-op Diagnosis: PHG, funal esoph, hemorrhoid Surgeon: ariadne Anesthesiologist: see report Anesthesia: MAC Specimen: none Complications: none Condition: stable Fluids: recorded Estimated Blood Loss: none Drains: none Implant(s) used?: No PERCY JONYER Jul 31, 2017 09:02
--- NOTE | 2017-07-31 09:24 | Immediate Post-Op Evaluation ---
Immediate Post-Op Evalulation Immediate Post-Op Evalulation Procedure: eg/colonoscopy Date of Evaluation: Jul 31, 2017 Time of Evaluation: 09:12 IV Fluids: 100ml d5/0.9ns Blood Products: none Estimated Blood Loss: negligible Blood Pressure Systolic: 129 Blood Pressure Diastolic: 81 Pulse Rate: 72 Respiratory Rate: 18 O2 Sat by Pulse Oximetry: 92 Temperature (Fahrenheit): 98.7 Pain Score (1-10): 0 Nausea: No Vomiting: No Complications none Patient Status: awake, reacts, patent Hydration Status: adequate Drug: ADINA Mead Jul 31, 2017 09:24
[2017-07-31] MEDS ORDERED: Eliquis 2.5mg tablet ORAL SCH (09:30)
--- NOTE | 2017-07-31 09:37 | 48 Hour Post Anesthesia Eval ---
Post Anesthesia Evaluation Procedure: eg/colonoscopy Date of Evaluation: Jul 31, 2017 Time of Evaluation: 09:24 Blood Pressure Systolic: 122 0: 78 Pulse Rate: 72 Respiratory Rate: 18 Temperature (Fahrenheit): 98.7 O2 Sat by Pulse Oximetry: 94 Airway: patent Nausea: No Vomiting: No Pain Intensity: 0 Hydration Status: adequate Cardiopulmonary Status: stable Mental Status/LOC: patient returned to baseline Post-Anesthesia Complications: none Follow-up care needed: N/A ADINA MCKEON Jul 31, 2017 09:37
[2017-07-31] MEDS: Lisinopril 20mg tab ORAL SCH ×2 (09:54→20:53)
--- NOTE | 2017-07-31 13:18 | Pulmonology Progress Note ---
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 on anti TB meds wtih IV Amikacin, ethambutol and Levofloxacin continue current meds Subjective ROS Limited/Unobtainable: No Constitutional: Reports: no symptoms HEENT: Repors: no symptoms Respiratory: Reports: no symptoms Allergies: Coded Allergies: IODINE AND IODIDE CONTAINING PRODUC (Verified Allergy, Mild, itching and pruritis, 06/25/17) Uncoded Allergies: CONTRAST/DYE (Allergy, Intermediate, PRURITIS AND ITCHING, 06/25/17) Objective Last 24 Hour Vital Signs Date Time Temp Pulse Resp B/P (MAP) Pulse Ox O2 Delivery O2 Flow Rate FiO2 07/31/17 12:04 97.7 67 20 122/76 92 Nasal Cannula 3.0 97.7 07/31/17 09:54 67 127/73 07/31/17 09:54 127/73 07/31/17 09:37 209.7 72 18 94 07/31/17 09:24 209.7 72 18 92 07/31/17 09:10 98.8 73 19 125/85 92 Nasal Cannula 3.0 98.8 07/31/17 09:05 75 19 119/68 92 Nasal Cannula 3.0 07/31/17 09:00 98.7 72 18 129/81 92 Simple Mask 6.0 98.7 07/31/17 05:40 74 137/79 07/31/17 04:00 98.6 74 19 137/79 92 98.6 07/31/17 00:00 97.2 83 20 158/89 92 Nasal Cannula 97.2 07/30/17 23:50 Room Air 07/30/17 23:47 98.2 77 16 146/90 98.2 07/30/17 22:00 73 117/72 07/30/17 21:00 73 117/72 07/30/17 21:00 117/72 07/30/17 20:30 Room Air 07/30/17 20:30 97.8 73 16 117/72 Room Air 97.8 07/30/17 20:21 Nasal Cannula 2.0 28 07/30/17 20:21 96 Nasal Cannula 2.0 28 07/30/17 20:00 98.6 73 22 117/72 96 98.6 07/30/17 16:00 97.0 76 17 133/81 100 Room Air 97.0 07/30/17 14:00 63 116/72 Intake and Output 07/30/17 07/31/17 19:00 07:00 Intake Total 800 ml 480 ml Output Total 4000 ml Balance 800 ml -3520 ml Intake Oral 800 ml 480 ml Hemodialysis UF 4000 ml # Bowel Movements 4 Objective General Appearance: WD/WN HEENT: normocephalic, atraumatic, anicteric Respiratory/Chest: loud rhonchi Cardiovascular: normal peripheral pulses, normal rate, regular rhythm Abdomen: normal bowel sounds, soft, non tender, no organomegaly Genitourinary: normal external genitalia Extremities: no cyanosis Skin: no rash, no lesions 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, no motor/sensory deficits Lymphatic: no neck adenopathy, no groin adenopathy Laboratory Tests 07/30/17 21:00: White Blood Count 4.5L, Red Blood Count 2.70L, Hemoglobin 8.4L, Hematocrit 26.4L , Mean Corpuscular Volume 98, Mean Corpuscular Hemoglobin 31.1H, Mean Corpuscular Hemoglobin Concent 31.7L, Red Cell Distribution Width 13.1, Platelet Count 83L, Mean Platelet Volume 8.3, Neutrophils (%) (Auto) , Lymphocytes (%) (Auto) , Monocytes (%) (Auto) , Eosinophils (%) (Auto) , Basophils (%) (Auto) , Differential Total Cells Counted 100, Neutrophils % ( Manual) 31L, Lymphocytes % (Manual) 29, Monocytes % (Manual) 23H, Eosinophils % (Manual) 15H, Basophils % (Manual) 2, Band Neutrophils 0, Platelet Estimate DecreasedL, Platelet Morphology Normal, Polychromasia 1+, Hypochromasia 1+, Macrocytosis 2+, Sodium Level 136, Potassium Level 5.1, Chloride Level 97L, Carbon Dioxide Level 23, Anion Gap 16H, Blood Urea Nitrogen 61H, Creatinine 12.5H, Estimat Glomerular Filtration Rate 5.1, Glucose Level 90, Calcium Level 8.4L, Total Bilirubin 0.9, Aspartate Amino Transf (AST/SGOT) 31, Alanine Aminotransferase (ALT/SGPT) 16, Alkaline Phosphatase 178H, Total Protein 7.5, Albumin 2.7L, Globulin 4.8, Albumin/Globulin Ratio 0.6L 07/31/17 05:50: White Blood Count 4.1L, Red Blood Count 2.64L, Hemoglobin 8.3L, Hematocrit 25.7L , Mean Corpuscular Volume 97, Mean Corpuscular Hemoglobin 31.3H, Mean Corpuscular Hemoglobin Concent 32.2, Red Cell Distribution Width 12.7, Platelet Count 72L, Mean Platelet Volume 8.4, Neutrophils (%) (Auto) , Lymphocytes (%) ( Auto) , Monocytes (%) (Auto) , Eosinophils (%) (Auto) , Basophils (%) (Auto) , Differential Total Cells Counted 100, Neutrophils % (Manual) 50, Lymphocytes % ( Manual) 21, Monocytes % (Manual) 17H, Eosinophils % (Manual) 12H, Basophils % ( Manual) 0, Band Neutrophils 0, Platelet Estimate DecreasedL, Platelet Morphology Normal, Hypochromasia 1+, Sodium Level 139, Potassium Level 3.9, Chloride Level 98, Carbon Dioxide Level 31, Anion Gap 11, Blood Urea Nitrogen 43H, Creatinine 10.0H, Estimat Glomerular Filtration Rate 6.5, Glucose Level 71L , Calcium Level 8.7, Total Bilirubin 1.2H, Aspartate Amino Transf (AST/SGOT) 26 , Alanine Aminotransferase (ALT/SGPT) 13, Alkaline Phosphatase 179H, Total Protein 7.3, Albumin 2.6L, Globulin 4.7, Albumin/Globulin Ratio 0.6L, Direct Bilirubin 0.6H 07/31/17 07:15: Prothrombin Time 14.9H, Prothromb Time International Ratio 1.4H, Activated Partial Thromboplast Time 34H Current Medications Medications (Trade) Dose Ordered Sig/Jose Route PRN Reason Start Time Stop Time Status Last Admin Dose Admin Al Hydroxide/Mg Hydroxide (Mylanta) 15 ml Q1H PRN ORAL gi upset 07/31/17 08:15 07/31/17 15:00 Alprazolam (Xanax) 2 mg DAILYPRN PRN ORAL For Anxiety 07/31/17 01:30 08/07/17 01:29 Amikacin Protocol (Amikacin pharmacy to dose) 1 ea DAILY PRN MISC Per rx protocol 07/16/17 09:00 08/03/17 15:14 Apixaban (Eliquis) 2.5 mg EVERY 12 HOURS ORAL 07/31/17 21:00 08/30/17 20:59 Atropine Sulfate (Atropine) 0.5 mg Q5M PRN IV bpm less than 45 07/31/17 08:15 07/31/17 15:00 Carisoprodol (Soma) 350 mg Q6H PRN ORAL Muscle Spasm 07/18/17 15:30 08/17/17 15:29 07/30/17 18:02 Chlorhexidine Gluconate (Mireille-Hex 2%) 1 applic DAILY@2000 TOPIC 07/15/17 20:00 08/02/17 19:59 07/30/17 21:36 Clindamycin HCl (Cleocin) 450 mg EVERY 6 HOURS ORAL 07/24/17 12:00 09/04/17 11:59 07/31/17 11:37 Dextrose (Dextrose 50%) 25 ml STAT PRN IV HYPOGLYCEMIA 07/16/17 08:30 08/08/17 08:29 Diltiazem HCl (Cardizem) 60 mg Q8HR ORAL 07/22/17 22:00 08/21/17 21:59 07/31/17 05:40 Diphenhydramine HCl (Benadryl) 25 mg Q15M PRN IVP Itching 07/31/17 08:15 07/31/17 15:00 Ethambutol HCl (Myambutol) 1,000 mg 3XW@2100 ORAL 07/23/17 21:00 08/22/17 20:59 07/30/17 21:36 Fentanyl Citrate (Sublimaze 100 mcg/2 mL) 25 mcg Q10M PRN IV Moderate Pain (Pain Scale 4-6) 07/31/17 08:15 07/31/17 15:00 Hydralazine HCl (Apresoline) 5 mg Q30M PRN IV SBP>160 OR___/DBP>90 OR___ 07/31/17 08:15 07/31/17 15:00 Hydromorphone HCl (Dilaudid) 2 mg Q4H PRN IVP Severe Pain (Pain Scale 7-10) 07/30/17 23:15 08/06/17 23:14 07/31/17 09:57 Lisinopril (Prinivil) 20 mg Q12HR ORAL 07/16/17 09:00 08/15/17 08:59 07/31/17 09:54 Metoprolol Tartrate (Lopressor) 100 mg Q12HR ORAL 07/15/17 21:00 08/10/17 20:59 07/31/17 09:54 Ondansetron HCl (Zofran) 4 mg Q1H PRN IVP Nausea & Vomiting 07/31/17 08:15 07/31/17 15:00 Ondansetron HCl (Zofran) 4 mg Q6H PRN IVP Nausea & Vomiting 07/18/17 15:30 08/17/17 15:29 07/28/17 01:19 Pantoprazole (Protonix) 40 mg BID ORAL 07/27/17 18:00 08/26/17 17:59 07/31/17 09:54 Temazepam (Restoril) 15 mg HSPRN PRN ORAL Insomnia 07/29/17 21:00 08/05/17 20:59 Christine Morgan MD Jul 31, 2017 13:18
--- NOTE | 2017-07-31 15:09 | Nephrology Progress Note ---
Assessment/Plan Problem List: (1) ESRD (end stage renal disease) on dialysis (2) Shortness of breath (3) Anemia Assessment Anemia ESRD , missed HD on admission , admitted with high K and pulmonary edema Acute respiratory distress due to volume overload elevated troponin r/o ACS h/o COPD ? exacerbation HTN urgency Cardiomyopathy L AICD anemia of chronic kidney disease Hx of CVA Plan Plan: HD last 07/25- will care for high K with HD Next HD 08/01 Kayexelate PRN Max UF Transfused Phos binders BP meds adjustment Optimize cardiac status per orders Subjective ROS Limited/Unobtainable: No Objective Objective Last 24 Hour Vital Signs Date Time Temp Pulse Resp B/P (MAP) Pulse Ox O2 Delivery O2 Flow Rate FiO2 07/31/17 14:35 77 118/74 07/31/17 12:04 97.7 67 20 122/76 92 Nasal Cannula 3.0 97.7 07/31/17 09:54 67 127/73 07/31/17 09:54 127/73 07/31/17 09:37 209.7 72 18 94 07/31/17 09:24 209.7 72 18 92 07/31/17 09:10 98.8 73 19 125/85 92 Nasal Cannula 3.0 98.8 07/31/17 09:05 75 19 119/68 92 Nasal Cannula 3.0 07/31/17 09:00 98.7 72 18 129/81 92 Simple Mask 6.0 98.7 07/31/17 05:40 74 137/79 07/31/17 04:00 98.6 74 19 137/79 92 98.6 07/31/17 00:00 97.2 83 20 158/89 92 Nasal Cannula 97.2 07/30/17 23:50 Room Air 07/30/17 23:47 98.2 77 16 146/90 98.2 07/30/17 22:00 73 117/72 07/30/17 21:00 73 117/72 07/30/17 21:00 117/72 07/30/17 20:30 Room Air 07/30/17 20:30 97.8 73 16 117/72 Room Air 97.8 07/30/17 20:21 Nasal Cannula 2.0 28 07/30/17 20:21 96 Nasal Cannula 2.0 28 07/30/17 20:00 98.6 73 22 117/72 96 98.6 07/30/17 16:00 97.0 76 17 133/81 100 Room Air 97.0 Intake and Output 07/30/17 07/31/17 19:00 07:00 Intake Total 800 ml 480 ml Output Total 4000 ml Balance 800 ml -3520 ml Intake Oral 800 ml 480 ml Hemodialysis UF 4000 ml # Bowel Movements 4 Laboratory Tests 07/30/17 21:00: White Blood Count 4.5L, Red Blood Count 2.70L, Hemoglobin 8.4L, Hematocrit 26.4L , Mean Corpuscular Volume 98, Mean Corpuscular Hemoglobin 31.1H, Mean Corpuscular Hemoglobin Concent 31.7L, Red Cell Distribution Width 13.1, Platelet Count 83L, Mean Platelet Volume 8.3, Neutrophils (%) (Auto) , Lymphocytes (%) (Auto) , Monocytes (%) (Auto) , Eosinophils (%) (Auto) , Basophils (%) (Auto) , Differential Total Cells Counted 100, Neutrophils % ( Manual) 31L, Lymphocytes % (Manual) 29, Monocytes % (Manual) 23H, Eosinophils % (Manual) 15H, Basophils % (Manual) 2, Band Neutrophils 0, Platelet Estimate DecreasedL, Platelet Morphology Normal, Polychromasia 1+, Hypochromasia 1+, Macrocytosis 2+, Sodium Level 136, Potassium Level 5.1, Chloride Level 97L, Carbon Dioxide Level 23, Anion Gap 16H, Blood Urea Nitrogen 61H, Creatinine 12.5H, Estimat Glomerular Filtration Rate 5.1, Glucose Level 90, Calcium Level 8.4L, Total Bilirubin 0.9, Aspartate Amino Transf (AST/SGOT) 31, Alanine Aminotransferase (ALT/SGPT) 16, Alkaline Phosphatase 178H, Total Protein 7.5, Albumin 2.7L, Globulin 4.8, Albumin/Globulin Ratio 0.6L 07/31/17 05:50: White Blood Count 4.1L, Red Blood Count 2.64L, Hemoglobin 8.3L, Hematocrit 25.7L , Mean Corpuscular Volume 97, Mean Corpuscular Hemoglobin 31.3H, Mean Corpuscular Hemoglobin Concent 32.2, Red Cell Distribution Width 12.7, Platelet Count 72L, Mean Platelet Volume 8.4, Neutrophils (%) (Auto) , Lymphocytes (%) ( Auto) , Monocytes (%) (Auto) , Eosinophils (%) (Auto) , Basophils (%) (Auto) , Differential Total Cells Counted 100, Neutrophils % (Manual) 50, Lymphocytes % ( Manual) 21, Monocytes % (Manual) 17H, Eosinophils % (Manual) 12H, Basophils % ( Manual) 0, Band Neutrophils 0, Platelet Estimate DecreasedL, Platelet Morphology Normal, Hypochromasia 1+, Sodium Level 139, Potassium Level 3.9, Chloride Level 98, Carbon Dioxide Level 31, Anion Gap 11, Blood Urea Nitrogen 43H, Creatinine 10.0H, Estimat Glomerular Filtration Rate 6.5, Glucose Level 71L , Calcium Level 8.7, Total Bilirubin 1.2H, Aspartate Amino Transf (AST/SGOT) 26 , Alanine Aminotransferase (ALT/SGPT) 13, Alkaline Phosphatase 179H, Total Protein 7.3, Albumin 2.6L, Globulin 4.7, Albumin/Globulin Ratio 0.6L, Direct Bilirubin 0.6H 07/31/17 07:15: Prothrombin Time 14.9H, Prothromb Time International Ratio 1.4H, Activated Partial Thromboplast Time 34H Height (Feet): 5 Height (Inches): 5.00 Weight (Pounds): 193 General Appearance: no apparent distress, lethargic Cardiovascular: normal rate Respiratory/Chest: decreased breath sounds Abdomen: soft, distended Objective no change LIAM MONTELONGO Jul 31, 2017 15:09
--- NOTE | 2017-07-31 15:57 | Infectious Diseases Prog Note ---
Assessment/Plan Assessment/Plan Cavitary PNA. SCx: Neg ( m/l anaerobic abscess than necrotizing Pneum , doubt TB or fungal ) ; improving - 07/09 SP BAL Cx( Abby and MOJGAN : Colonizers ) , Path : Neg for fungus and Malignancy -CXR 07/28: Possibly improving right lung cavitary lesion, over 7 days Otherwise unchanged findings as described. - Ch-CT 07/15 : The overall lesion appears smaller, measuring 6.3 cm AP by 3.6 cm transverse by 2.3 cm craniocaudad currently -CT chest 06/25: Since the prior study of 06/15/2017, and. From further reduction in size of previously demonstrated thick walled right upper lobe cavitary mass. This was previously thought to most likely represent a cavitary inflammatory mass, and the interim reduction in size certainly supports that. Much less likely a cavitary neoplasm, but follow-up to resolution is recommended. Markedly improved parenchymal disease bilaterally, since the previous study. Nonetheless , extensive atelectasis and groundglass consolidation persists. Persistent small right pleural effusion, smaller than on the prior study. Resolved left pleural effusion 6 mm nodular opacity in the right upper lobe, not evident previously but likely obscured by surrounding consolidated lung parenchyma. This should be followed up in 6 months to one year depending on results of interim follow-up exams T-SPOT :Neg Culture and stain AFB x 3 : Neg MTB PCR x2 : neg cryptococcus Ag, Histoplams mycelial Ab , Blastomyces ab : neg ; histoplasma yeast ab (not able to be done due to anticomplementary activity) -Cocci, Asp ag p -Fungitell + 144 (?aspergillosis vs m/l false positive) CT chest 06/15: Slightly smaller (6 cm diameter ) but mostly unchanged cavitary lesion in the right lung, previously thought to represent a cavitating inflammatory process. Lung abscess is certainly a possibility. Fairly extensive bilateral pulmonary parenchymal consolidation, slightly increased from previous exam of 06/05/2017. Likely a combination of pulmonary edema and pneumonia. Small right and trace left pleural effusion, new/increased from the previous study. CT 06/05: 7.8 x 5.3 x 6.6 cm dense opacity in the posterior inferior right upper lobe with a central cavitation. CRP 14 Influenza negative Coccidioidal ,Galactomannan : NEG ( PER LAB ) Transaminitis , improved after stopping rifampin 2/2 Hep C cirrhosis- no active Hep C as VL not detected -CT abd/p: Evidence of hepatic cirrhosis. Hepatosplenomegaly. evidence of generalized anasarca, with pleural fluid and generalized subcutaneous edema. Cholelithiasis, also previously reported. Possible diverticulosis. No evidence of diverticulitis US Abd : Cholelithiasis. There is gallbladder wall thickening, likely related to hemodynamic abnormalities Splenomegaly. Evidence of hepatic cirrhosis HIV : NEG Hep Panel B neg , C Ab : +ve , VL not detected leukopenia and TCP 2/2 splenomegaly Seizure disorder History of CVA History of pacemaker placement Hyperlipidemia Hypertension COPD/asthma End-stage renal disease, on hemodialysis Diabetes Anxiety Anemia Echo, ejection fraction 45% to 50%. PLAN: - Cont oral Clinda d# 16 ( till resolution/ stabilization of abscess) ( abx d# 54 ) Continue Ethambutol and Levaquin, Amikacin ( empiric TB AB Rx d# 44 TB control they want to cont TB Meds regardless of AFB Cultures Neg x 3 (called : 07/22 ) ) -Advised pain regimen to be switched to PO to be able to d/c R IJ as has be present since 06/05- risk for DVT, bacteremia, PTX -Amikacin can be switched to IM -At this point patient is cleared for discharge to SNF- patient with neg AFB cultures x3, more than 14 days TB treatment, off airborne isolation 07/16 SP Zoysn d# 9 ( for SOB and CXR worsen , better coverage of anaerobes, PSA and Providencia ); 07/07 Flagyl 07/06 SP Voriconazole ( low antonio for fungal infection , and in the setting of cirrhosis ) 07/05 SP Micafungin abx d#20 , Rifampin 600mg qd #10 07/01 SP Ceftriaxone #10 06/28 SP Amikacin #15 06/25 SP PO Voriconazole #3 06/20 SP Liposomal Ampho #8 06/17 SP IV Vancomycin #14, Meropenem #5 06/13 SP Zosyn d# 10 3 SP Zithromax D# 6 BAL fungal and AFB Cx : P - CMP Discussed with RN, Dr Calloway. Tried contacting manager truck; they were already gone for the day. Subjective Allergies: Coded Allergies: IODINE AND IODIDE CONTAINING PRODUC (Verified Allergy, Mild, itching and pruritis, 06/25/17) Uncoded Allergies: CONTRAST/DYE (Allergy, Intermediate, PRURITIS AND ITCHING, 06/25/17) Subjective afebrile no leukocytosis Objective Vital Signs Last 24 Hour Vital Signs Date Time Temp Pulse Resp B/P (MAP) Pulse Ox O2 Delivery O2 Flow Rate FiO2 07/31/17 14:35 77 118/74 07/31/17 12:04 97.7 67 20 122/76 92 Nasal Cannula 3.0 97.7 07/31/17 09:54 67 127/73 07/31/17 09:54 127/73 07/31/17 09:37 209.7 72 18 94 07/31/17 09:24 209.7 72 18 92 07/31/17 09:10 98.8 73 19 125/85 92 Nasal Cannula 3.0 98.8 07/31/17 09:05 75 19 119/68 92 Nasal Cannula 3.0 07/31/17 09:00 98.7 72 18 129/81 92 Simple Mask 6.0 98.7 07/31/17 05:40 74 137/79 07/31/17 04:00 98.6 74 19 137/79 92 98.6 07/31/17 00:00 97.2 83 20 158/89 92 Nasal Cannula 97.2 07/30/17 23:50 Room Air 07/30/17 23:47 98.2 77 16 146/90 98.2 07/30/17 22:00 73 117/72 07/30/17 21:00 73 117/72 07/30/17 21:00 117/72 07/30/17 20:30 Room Air 07/30/17 20:30 97.8 73 16 117/72 Room Air 97.8 07/30/17 20:21 Nasal Cannula 2.0 28 07/30/17 20:21 96 Nasal Cannula 2.0 28 07/30/17 20:00 98.6 73 22 117/72 96 98.6 07/30/17 16:00 97.0 76 17 133/81 100 Room Air 97.0 Height (Feet): 5 Height (Inches): 5.00 Weight (Pounds): 193 Objective General Appearance: WD/WN, alert, moderate distress EENT: PERRL/EOMI, normal ENT inspection Neck: non-tender, normal alignment, supple, normal inspection Cardiovascular: normal peripheral pulses, normal rate, regular rhythm, no gallop/murmur, no JVD Respiratory/Chest: Non rebreather; respiratory distress, crackles/rales, rhonchi - bilaterally, expiratory wheezing Abdomen: normal bowel sounds, non tender, soft, no organomegaly, no mass Extremities: normal range of motion Neurologic: talkback host 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, no motor/sensory deficits Skin: normal pigmentation, warm/dry Laboratory Tests Test 07/30/17 21:00 07/31/17 05:50 07/31/17 07:15 White Blood Count 4.5 K/UL (4.8-10.8) L 4.1 K/UL (4.8-10.8) L Red Blood Count 2.70 M/UL (4.70-6.10) L 2.64 M/UL (4.70-6.10) L Hemoglobin 8.4 G/DL (14.2-18.0) L 8.3 G/DL (14.2-18.0) L Hematocrit 26.4 % (42.0-52.0) L 25.7 % (42.0-52.0) L Mean Corpuscular Volume 98 FL (80-99) 97 FL (80-99) Mean Corpuscular Hemoglobin 31.1 PG (27.0-31.0) H 31.3 PG (27.0-31.0) H Mean Corpuscular Hemoglobin Concent 31.7 G/DL (32.0-36.0) L 32.2 G/DL (32.0-36.0) Red Cell Distribution Width 13.1 % (11.6-14.8) 12.7 % (11.6-14.8) Platelet Count 83 K/UL (150-450) L 72 K/UL (150-450) L Mean Platelet Volume 8.3 FL (6.5-10.1) 8.4 FL (6.5-10.1) Neutrophils (%) (Auto) % (45.0-75.0) % (45.0-75.0) Lymphocytes (%) (Auto) % (20.0-45.0) % (20.0-45.0) Monocytes (%) (Auto) % (1.0-10.0) % (1.0-10.0) Eosinophils (%) (Auto) % (0.0-3.0) % (0.0-3.0) Basophils (%) (Auto) % (0.0-2.0) % (0.0-2.0) Differential Total Cells Counted 100 100 Neutrophils % (Manual) 31 % (45-75) L 50 % (45-75) Lymphocytes % (Manual) 29 % (20-45) 21 % (20-45) Monocytes % (Manual) 23 % (1-10) H 17 % (1-10) H Eosinophils % (Manual) 15 % (0-3) H 12 % (0-3) H Basophils % (Manual) 2 % (0-2) 0 % (0-2) Band Neutrophils 0 % (0-8) 0 % (0-8) Platelet Estimate Decreased L Decreased L Platelet Morphology Normal Normal Polychromasia 1+ Hypochromasia 1+ 1+ Macrocytosis 2+ Sodium Level 136 MMOL/L (136-145) 139 MMOL/L (136-145) Potassium Level 5.1 MMOL/L (3.5-5.1) 3.9 MMOL/L (3.5-5.1) Chloride Level 97 MMOL/L (98-107) L 98 MMOL/L (98-107) Carbon Dioxide Level 23 MMOL/L (21-32) 31 MMOL/L (21-32) Anion Gap 16 mmol/L (5-15) H 11 mmol/L (5-15) Blood Urea Nitrogen 61 mg/dL (7-18) H 43 mg/dL (7-18) H Creatinine 12.5 MG/DL (0.55-1.30) H 10.0 MG/DL (0.55-1.30) H Estimat Glomerular Filtration Rate 5.1 mL/min (>60) 6.5 mL/min (>60) Glucose Level 90 MG/DL (74-106) 71 MG/DL (74-106) L Calcium Level 8.4 MG/DL (8.5-10.1) L 8.7 MG/DL (8.5-10.1) Total Bilirubin 0.9 MG/DL (0.2-1.0) 1.2 MG/DL (0.2-1.0) H Aspartate Amino Transf (AST/SGOT) 31 U/L (15-37) 26 U/L (15-37) Alanine Aminotransferase (ALT/SGPT) 16 U/L (12-78) 13 U/L (12-78) Alkaline Phosphatase 178 U/L (46-116) H 179 U/L (46-116) H Total Protein 7.5 G/DL (6.4-8.2) 7.3 G/DL (6.4-8.2) Albumin 2.7 G/DL (3.4-5.0) L 2.6 G/DL (3.4-5.0) L Globulin 4.8 g/dL 4.7 g/dL Albumin/Globulin Ratio 0.6 (1.0-2.7) L 0.6 (1.0-2.7) L Direct Bilirubin 0.6 MG/DL (0.0-0.3) H Prothrombin Time 14.9 SEC (9.30-11.50) H Prothromb Time International Ratio 1.4 (0.9-1.1) H Activated Partial Thromboplast Time 34 SEC (23-33) H Current Medications Medications (Trade) Dose Ordered Sig/Jose Route PRN Reason Start Time Stop Time Status Last Admin Dose Admin Alprazolam (Xanax) 2 mg DAILYPRN PRN ORAL For Anxiety 07/31/17 01:30 08/07/17 01:29 Amikacin Protocol (Amikacin pharmacy to dose) 1 ea DAILY PRN MISC Per rx protocol 07/16/17 09:00 08/03/17 15:14 Apixaban (Eliquis) 2.5 mg EVERY 12 HOURS ORAL 07/31/17 21:00 08/30/17 20:59 Carisoprodol (Soma) 350 mg Q6H PRN ORAL Muscle Spasm 07/18/17 15:30 08/17/17 15:29 07/30/17 18:02 Chlorhexidine Gluconate (Mireille-Hex 2%) 1 applic DAILY@2000 TOPIC 07/15/17 20:00 08/02/17 19:59 07/30/17 21:36 Clindamycin HCl (Cleocin) 450 mg EVERY 6 HOURS ORAL 07/24/17 12:00 09/04/17 11:59 07/31/17 11:37 Dextrose (Dextrose 50%) 25 ml STAT PRN IV HYPOGLYCEMIA 07/16/17 08:30 08/08/17 08:29 Diltiazem HCl (Cardizem) 60 mg Q8HR ORAL 07/22/17 22:00 08/21/17 21:59 07/31/17 14:35 Ethambutol HCl (Myambutol) 1,000 mg 3XW@2100 ORAL 07/23/17 21:00 08/22/17 20:59 07/30/17 21:36 Hydromorphone HCl (Dilaudid) 2 mg Q4H PRN IVP Severe Pain (Pain Scale 7-10) 07/30/17 23:15 08/06/17 23:14 07/31/17 14:34 Lisinopril (Prinivil) 20 mg Q12HR ORAL 07/16/17 09:00 08/15/17 08:59 07/31/17 09:54 Metoprolol Tartrate (Lopressor) 100 mg Q12HR ORAL 07/15/17 21:00 08/10/17 20:59 07/31/17 09:54 Pantoprazole (Protonix) 40 mg BID ORAL 07/27/17 18:00 08/26/17 17:59 07/31/17 09:54 Temazepam (Restoril) 15 mg HSPRN PRN ORAL Insomnia 07/29/17 21:00 08/05/17 20:59 Aleja Crocker M.D. Jul 31, 2017 15:57
[2017-07-31] MEDS: Eliquis 2.5mg tablet ORAL SCH (20:52)
[2017-07-31] MEDS: Dyna-Hex 2% Top Sol 2oz TOPIC SCH (20:52)
--- NOTE | 2017-07-31 22:37 | Internal Med Progress Note ---
Subjective Physician Name Chaitanya Weinstein Attending Physician Chaitanya Weinstein MD Current Medications Medications (Trade) Dose Ordered Sig/Jose Route PRN Reason Start Time Stop Time Status Last Admin Dose Admin Alprazolam (Xanax) 2 mg DAILYPRN PRN ORAL For Anxiety 07/31/17 01:30 08/07/17 01:29 Amikacin Protocol (Amikacin pharmacy to dose) 1 ea DAILY PRN MISC Per rx protocol 07/16/17 09:00 08/03/17 15:14 Apixaban (Eliquis) 2.5 mg EVERY 12 HOURS ORAL 07/31/17 21:00 08/30/17 20:59 07/31/17 20:52 Carisoprodol (Soma) 350 mg Q6H PRN ORAL Muscle Spasm 07/18/17 15:30 08/17/17 15:29 07/30/17 18:02 Chlorhexidine Gluconate (Mireille-Hex 2%) 1 applic DAILY@2000 TOPIC 07/15/17 20:00 08/02/17 19:59 07/31/17 20:52 Clindamycin HCl (Cleocin) 450 mg EVERY 6 HOURS ORAL 07/24/17 12:00 09/04/17 11:59 07/31/17 17:38 Dextrose (Dextrose 50%) 25 ml STAT PRN IV HYPOGLYCEMIA 07/16/17 08:30 08/08/17 08:29 Diltiazem HCl (Cardizem) 60 mg Q8HR ORAL 07/22/17 22:00 08/21/17 21:59 07/31/17 21:49 Ethambutol HCl (Myambutol) 1,000 mg 3XW@2100 ORAL 07/23/17 21:00 08/22/17 20:59 07/30/17 21:36 Hydromorphone HCl (Dilaudid) 2 mg Q4H PRN IVP Severe Pain (Pain Scale 7-10) 07/30/17 23:15 08/06/17 23:14 07/31/17 22:28 Lisinopril (Prinivil) 20 mg Q12HR ORAL 07/16/17 09:00 08/15/17 08:59 07/31/17 09:54 Metoprolol Tartrate (Lopressor) 100 mg Q12HR ORAL 4/10/18 21:00 08/10/17 20:59 07/31/17 20:53 Pantoprazole (Protonix) 40 mg BID ORAL 07/27/17 18:00 08/26/17 17:59 07/31/17 17:38 Temazepam (Restoril) 15 mg HSPRN PRN ORAL Insomnia 07/29/17 21:00 08/05/17 20:59 Allergies: Coded Allergies: IODINE AND IODIDE CONTAINING PRODUC (Verified Allergy, Mild, itching and pruritis, 06/25/17) Uncoded Allergies: CONTRAST/DYE (Allergy, Intermediate, PRURITIS AND ITCHING, 06/25/17) Subjective awake,alert, responsive , NAD. ambulating in room Objective Last Vital Signs Date Time Temp Pulse Resp B/P (MAP) Pulse Ox O2 Delivery O2 Flow Rate FiO2 07/31/17 21:49 67 123/69 07/31/17 20:22 98.8 17 92 98.8 07/31/17 20:00 Room Air 21 07/31/17 12:04 3.0 Laboratory Tests Test 07/31/17 05:50 07/31/17 07:15 White Blood Count 4.1 K/UL (4.8-10.8) L Red Blood Count 2.64 M/UL (4.70-6.10) L Hemoglobin 8.3 G/DL (14.2-18.0) L Hematocrit 25.7 % (42.0-52.0) L Mean Corpuscular Volume 97 FL (80-99) Mean Corpuscular Hemoglobin 31.3 PG (27.0-31.0) H Mean Corpuscular Hemoglobin Concent 32.2 G/DL (32.0-36.0) Red Cell Distribution Width 12.7 % (11.6-14.8) Platelet Count 72 K/UL (150-450) L Mean Platelet Volume 8.4 FL (6.5-10.1) Neutrophils (%) (Auto) % (45.0-75.0) Lymphocytes (%) (Auto) % (20.0-45.0) Monocytes (%) (Auto) % (1.0-10.0) Eosinophils (%) (Auto) % (0.0-3.0) Basophils (%) (Auto) % (0.0-2.0) Differential Total Cells Counted 100 Neutrophils % (Manual) 50 % (45-75) Lymphocytes % (Manual) 21 % (20-45) Monocytes % (Manual) 17 % (1-10) H Eosinophils % (Manual) 12 % (0-3) H Basophils % (Manual) 0 % (0-2) Band Neutrophils 0 % (0-8) Platelet Estimate Decreased L Platelet Morphology Normal Hypochromasia 1+ Sodium Level 139 MMOL/L (136-145) Potassium Level 3.9 MMOL/L (3.5-5.1) Chloride Level 98 MMOL/L (98-107) Carbon Dioxide Level 31 MMOL/L (21-32) Anion Gap 11 mmol/L (5-15) Blood Urea Nitrogen 43 mg/dL (7-18) H Creatinine 10.0 MG/DL (0.55-1.30) H Estimat Glomerular Filtration Rate 6.5 mL/min (>60) Glucose Level 71 MG/DL (74-106) L Calcium Level 8.7 MG/DL (8.5-10.1) Total Bilirubin 1.2 MG/DL (0.2-1.0) H Direct Bilirubin 0.6 MG/DL (0.0-0.3) H Aspartate Amino Transf (AST/SGOT) 26 U/L (15-37) Alanine Aminotransferase (ALT/SGPT) 13 U/L (12-78) Alkaline Phosphatase 179 U/L (46-116) H Total Protein 7.3 G/DL (6.4-8.2) Albumin 2.6 G/DL (3.4-5.0) L Globulin 4.7 g/dL Albumin/Globulin Ratio 0.6 (1.0-2.7) L Prothrombin Time 14.9 SEC (9.30-11.50) H Prothromb Time International Ratio 1.4 (0.9-1.1) H Activated Partial Thromboplast Time 34 SEC (23-33) H Intake and Output 07/30/17 07/31/17 19:00 07:00 Intake Total 800 ml 480 ml Output Total 4000 ml Balance 800 ml -3520 ml Intake Oral 800 ml 480 ml Hemodialysis UF 4000 ml # Bowel Movements 4 Objective General: No acute distress, awake and alert HEENT: NCAT, sclera anicteric, PERRL, EOMI. Neck: Supple, no significant jugular venous distention, Right IJ cath. Lungs: Good inspiratory effort, no Wheeze or Rales. Heart: Regular rate and rhythm, normal S1/S2, no murmur Abdomen: soft, nontender, nondistended. Normoactive bowel sounds. Obesity Extremities: No Cyanosis , clubbing, or edema. Neuro: A&O x 3, Able to move all extremities Skin: warm, no rashes Assessment/Plan Assessment/Plan Right upper lobe cavitary mass Necrotizing PNA with cavitating lesion RUL r/o TB Acute hypoxemic RF requiring BiPAP -resolved Pleuritic chest pain likely due to necrotizing PNA . Elevated troponin Systolic CHF ( recent negative reversible perfusion defect.) cardiomyopathy pulmonary edema Asthma. End-stage renal disease, on hemodialysis. Hypertensive urgency . Anemia of chronic disease. History of intracardiac defibrillator placement. Prior history of cerebrovascular accident. ESRD on HD thrombocytopenia transaminitis hepatitis C liver cirrhosis cholelithiasis Plan: Monitor Labs and culture Full code F/U with ID recommendations - Cont oral Clinda d# 16 ( till resolution/ stabilization of abscess) ( abx d# 54 ) - Continue Ethambutol and Levaquin, Amikacin ( empiric TB AB Rx d# 44 TB control they want to cont TB Meds regardless of AFB Cultures Neg x 3 (called : 07/22 ) ) -At this point patient is cleared for discharge to SNF- patient with neg AFB cultures x3, more than 14 days TB treatment, off airborne isolation [place] planning Chaitanya Weinstein MD Jul 31, 2017 22:37
--- NOTE | 2017-07-31 23:51 | General Progress Note ---
Assessment/Plan Assessment/Plan #. Anemia secondary to chronic disease. --> Hemoglobin levels above goal. No blood transfusion required at this time. --> S/P abd CAT scan revealing evidence of hepatic cirrhosis. --> Continue to closely monitor and trend cbc daily. --> Anemia workup completed and reviewed. Iron 42, TIBC 180, Ferritin 593, B12 876. --> Ferritin is >500, hgb goal is >7 --> Anemia w/u has been reviewed --> ++Occult blood. Consider GI Services and Recs. --> EGD has been scheduled #. Left leg dvt --> acute onset, will need to review final duplex results --> on apixaban daily x 3 months, H/H has been stable. INR improved. --> okay to change to different anticoagulant if renal clearance an issue --> If h/h downtrends below 7.5, consider ivc filter placement. --> Hemoglobin currently >7.5 #. Thrombocytopenia. --> Hepatitis C ab ++, PCR - --> Monitor platelet level. Transfuse if platelet count <20k --> Levels remain low. # Hepatosplenomegaly. Ascites. There is also evidence of generalized anasarca, with pleural fluid and generalized subcutaneous edema --> Abd pain improved on pain management --> Refer to surgery note. #. Anemia of kidney disease --> HD as needed per nephrology team --> Monitor closely. --> Does not require iron at this time #. Generalized body ache related to fluid overload. #. End-stage renal disease, on hemodialysis as needed --> Pending HD. #. Respiratory failure due to CHF and pneumonia. --> Providencia and pseudomonas. --> On vancomycin and ethambutol per ID. --> Chest pain improved at this time, on pain management. #. Shortness of breath. Due to underlying pneumonia. #. Atrial flutter with rapid ventricular response. On metoprolol and diltiazem. #. Conjunctivitis. Begin tobramycin. On anti TB treatment. On Amikacin and ethambutol. Continue telemetry. Poor prognosis Subjective Date patient seen: Jul 31, 2017 Constitutional: Denies: no symptoms, chills, diaphoresis, fever, malaise, weakness, other HEENT: Denies: no symptoms, eye pain, blurred vision, tearing, double vision, ear pain, ear discharge, nose pain, nose congestion, throat pain, throat swelling, mouth pain, mouth swelling, other Cardiovascular: Denies: no symptoms, chest pain, edema, irregular heart rate, lightheadedness, palpitations, syncope, other Respiratory: Denies: no symptoms, cough, orthopnea, shortness of breath, SOB with excertion, SOB at rest, sputum, stridor, wheezing, other Gastrointestinal/Abdominal: Denies: no symptoms, abdomen distended, abdominal pain, black stools, tarry stools, blood in stool, constipated, diarrhea, difficulty swallowing, nausea, poor appetite, poor fluid intake, rectal bleeding , vomiting, other Genitourinary: Denies: no symptoms, burning, discharge, frequency, flank pain, hematuria, incontinence, pain, urgency, other Neurologic/Psychiatric: Denies: no symptoms, anxiety, depressed, emotional problems, headache, numbness, paresthesia, pre-existing deficit, seizure, tingling, tremors, weakness, other Hematologic/Lymphatic: Reports: anemia Allergies: Coded Allergies: IODINE AND IODIDE CONTAINING PRODUC (Verified Allergy, Mild, itching and pruritis, 06/25/17) Uncoded Allergies: CONTRAST/DYE (Allergy, Intermediate, PRURITIS AND ITCHING, 06/25/17) Subjective On pain control. No acute events. Platelets low. Objective Last 24 Hour Vital Signs Date Time Temp Pulse Resp B/P (MAP) Pulse Ox O2 Delivery O2 Flow Rate FiO2 07/31/17 21:49 67 123/69 07/31/17 20:53 66 112/63 07/31/17 20:53 112/63 07/31/17 20:22 98.8 66 17 112/63 92 98.8 07/31/17 20:00 94 Room Air 21 07/31/17 19:30 Room Air 21 07/31/17 16:00 97.9 70 20 149/79 91 97.9 07/31/17 14:35 77 118/74 07/31/17 12:04 97.7 67 20 122/76 92 Nasal Cannula 3.0 97.7 07/31/17 09:54 67 127/73 07/31/17 09:54 127/73 07/31/17 09:37 209.7 72 18 94 07/31/17 09:24 209.7 72 18 92 07/31/17 09:10 98.8 73 19 125/85 92 Nasal Cannula 3.0 98.8 07/31/17 09:05 75 19 119/68 92 Nasal Cannula 3.0 07/31/17 09:00 98.7 72 18 129/81 92 Simple Mask 6.0 98.7 07/31/17 05:40 74 137/79 07/31/17 04:00 98.6 74 19 137/79 92 98.6 07/31/17 00:00 97.2 83 20 158/89 92 Nasal Cannula 97.2 Intake and Output 07/30/17 07/31/17 19:00 07:00 Intake Total 800 ml 480 ml Output Total 4000 ml Balance 800 ml -3520 ml Intake Oral 800 ml 480 ml Hemodialysis UF 4000 ml # Bowel Movements 4 Laboratory Tests 07/31/17 05:50: White Blood Count 4.1L, Red Blood Count 2.64L, Hemoglobin 8.3L, Hematocrit 25.7L , Mean Corpuscular Volume 97, Mean Corpuscular Hemoglobin 31.3H, Mean Corpuscular Hemoglobin Concent 32.2, Red Cell Distribution Width 12.7, Platelet Count 72L, Mean Platelet Volume 8.4, Neutrophils (%) (Auto) , Lymphocytes (%) ( Auto) , Monocytes (%) (Auto) , Eosinophils (%) (Auto) , Basophils (%) (Auto) , Differential Total Cells Counted 100, Neutrophils % (Manual) 50, Lymphocytes % ( Manual) 21, Monocytes % (Manual) 17H, Eosinophils % (Manual) 12H, Basophils % ( Manual) 0, Band Neutrophils 0, Platelet Estimate DecreasedL, Platelet Morphology Normal, Hypochromasia 1+, Sodium Level 139, Potassium Level 3.9, Chloride Level 98, Carbon Dioxide Level 31, Anion Gap 11, Blood Urea Nitrogen 43H, Creatinine 10.0H, Estimat Glomerular Filtration Rate 6.5, Glucose Level 71L , Calcium Level 8.7, Total Bilirubin 1.2H, Direct Bilirubin 0.6H, Aspartate Amino Transf (AST/SGOT) 26, Alanine Aminotransferase (ALT/SGPT) 13, Alkaline Phosphatase 179H, Total Protein 7.3, Albumin 2.6L, Globulin 4.7, Albumin/ Globulin Ratio 0.6L 07/31/17 07:15: Prothrombin Time 14.9H, Prothromb Time International Ratio 1.4H, Activated Partial Thromboplast Time 34H Height (Feet): 5 Height (Inches): 5.00 Weight (Pounds): 193 General Appearance: confused Cardiovascular: normal rate, regular rhythm Respiratory/Chest: decreased breath sounds ZAK RUIZ Jul 31, 2017 23:51
[2017-08-01] VITALS (7 sets, daily range): BP systolic 119–145; BP diastolic 66–87
[2017-08-01] MEDS: dilTIAZem HCl 60mg tab ORAL SCH ×3 (05:24→22:00)
[2017-08-01] MEDS: Clindamycin 150mg cap ORAL SCH ×4 (05:26→23:30)
[2017-08-01] MEDS: ALPRAZolam 0.5mg tab ORAL PRN ×2 (08:03→23:30)
[2017-08-01] MEDS: Eliquis 2.5mg tablet ORAL SCH ×2 (08:03→21:00)
[2017-08-01] MEDS: Lisinopril 20mg tab ORAL SCH ×2 (08:05→21:00)
--- NOTE | 2017-08-01 12:36 | Pulmonology Progress Note ---
Assessment/Plan Problems: (1) Respiratory failure (2) Pneumonia (3) Rapid atrial fibrillation (4) HTN (hypertension) (5) ESRD (end stage renal disease) on dialysis (6) Anemia Assessment/Plan all reviewed feeling better CXR 07/28: RUL cavitary lesion improving, donaldson are getting thinner repeat cxr weekly slowly improving onNC HD by community outreach worker prbc prn on anti TB meds wtih IV Amikacin, ethambutol and Levofloxacin continue current meds Subjective ROS Limited/Unobtainable: No Constitutional: Reports: no symptoms HEENT: Repors: no symptoms Respiratory: Reports: no symptoms Allergies: Coded Allergies: IODINE AND IODIDE CONTAINING PRODUC (Verified Allergy, Mild, itching and pruritis, 06/25/17) Uncoded Allergies: CONTRAST/DYE (Allergy, Intermediate, PRURITIS AND ITCHING, 06/25/17) Objective Last 24 Hour Vital Signs Date Time Temp Pulse Resp B/P (MAP) Pulse Ox O2 Delivery O2 Flow Rate FiO2 08/01/17 11:14 97.7 08/01/17 10:44 97.7 08/01/17 08:05 127/76 08/01/17 08:03 63 127/76 08/01/17 08:00 97.7 69 18 121/77 94 97.7 08/01/17 05:24 63 127/76 08/01/17 04:04 99.1 63 20 127/76 94 99.1 08/01/17 00:41 98.6 61 17 119/66 95 98.6 08/01/17 00:00 92 Nasal Cannula 3.0 07/31/17 21:49 67 123/69 07/31/17 20:53 66 112/63 07/31/17 20:53 112/63 07/31/17 20:22 98.8 66 17 112/63 92 98.8 07/31/17 20:00 94 Room Air 21 07/31/17 20:00 91 Nasal Cannula 3.0 07/31/17 19:30 Room Air 21 07/31/17 16:00 97.9 70 20 149/79 91 97.9 07/31/17 14:35 77 118/74 Intake and Output 07/31/17 08/01/17 19:00 07:00 Intake Total 350 ml 480 ml Balance 350 ml 480 ml Intake Oral 250 ml 480 ml IV Total 100 ml # Voids 3 Objective General Appearance: WD/WN HEENT: normocephalic, atraumatic, anicteric Respiratory/Chest: loud rhonchi Cardiovascular: normal peripheral pulses, normal rate, regular rhythm Abdomen: normal bowel sounds, soft, non tender, no organomegaly Genitourinary: normal external genitalia Extremities: no cyanosis Skin: no rash, no lesions Neurologic/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: 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, no motor/sensory deficits Lymphatic: no neck adenopathy, no groin adenopathy Current Medications Medications (Trade) Dose Ordered Sig/Jose Route PRN Reason Start Time Stop Time Status Last Admin Dose Admin Alprazolam (Xanax) 2 mg DAILYPRN PRN ORAL For Anxiety 07/31/17 01:30 08/07/17 01:29 08/01/17 08:03 Amikacin Protocol (Amikacin pharmacy to dose) 1 ea DAILY PRN MISC Per rx protocol 07/16/17 09:00 08/03/17 15:14 Apixaban (Eliquis) 2.5 mg EVERY 12 HOURS ORAL 07/31/17 21:00 08/30/17 20:59 08/01/17 08:03 Carisoprodol (Soma) 350 mg Q6H PRN ORAL Muscle Spasm 07/18/17 15:30 08/17/17 15:29 08/01/17 03:51 Chlorhexidine Gluconate (Mireille-Hex 2%) 1 applic DAILY@2000 TOPIC 07/15/17 20:00 08/02/17 19:59 07/31/17 20:52 Clindamycin HCl (Cleocin) 450 mg EVERY 6 HOURS ORAL 07/24/17 12:00 09/04/17 11:59 08/01/17 11:34 Dextrose (Dextrose 50%) 25 ml STAT PRN IV HYPOGLYCEMIA 07/16/17 08:30 08/08/17 08:29 Diltiazem HCl (Cardizem) 60 mg Q8HR ORAL 07/22/17 22:00 08/21/17 21:59 07/31/17 21:49 Ethambutol HCl (Myambutol) 1,000 mg 3XW@2100 ORAL 07/23/17 21:00 08/22/17 20:59 07/30/17 21:36 Hydromorphone HCl (Dilaudid) 2 mg Q4H PRN IVP Severe Pain (Pain Scale 7-10) 07/30/17 23:15 08/06/17 23:14 08/01/17 10:44 Lisinopril (Prinivil) 20 mg Q12HR ORAL 07/16/17 09:00 08/15/17 08:59 07/31/17 09:54 Metoprolol Tartrate (Lopressor) 100 mg Q12HR ORAL 07/15/17 21:00 08/10/17 20:59 07/31/17 20:53 Pantoprazole (Protonix) 40 mg BID ORAL 07/27/17 18:00 08/26/17 17:59 08/01/17 08:05 Temazepam (Restoril) 15 mg HSPRN PRN ORAL Insomnia 07/29/17 21:00 08/05/17 20:59 Christine Morgan MD Aug 01, 2017 12:36
--- NOTE | 2017-08-01 15:20 | Nephrology Progress Note ---
Assessment/Plan Problem List: (1) ESRD (end stage renal disease) on dialysis (2) Shortness of breath (3) Anemia Assessment Anemia ESRD , missed HD on admission , admitted with high K and pulmonary edema Acute respiratory distress due to volume overload elevated troponin r/o ACS h/o COPD ? exacerbation HTN urgency Cardiomyopathy L AICD anemia of chronic kidney disease Hx of CVA Plan Plan: HD last 07/25- will care for high K with HD Next HD 08/01 Kayexelate PRN Max UF Transfused Phos binders BP meds adjustment Optimize cardiac status per orders Subjective ROS Limited/Unobtainable: No Objective Objective Last 24 Hour Vital Signs Date Time Temp Pulse Resp B/P (MAP) Pulse Ox O2 Delivery O2 Flow Rate FiO2 08/01/17 14:53 97.4 08/01/17 13:46 71 136/85 08/01/17 12:00 97.4 71 18 136/85 97 97.4 08/01/17 11:14 97.7 08/01/17 10:44 97.7 08/01/17 08:05 127/76 08/01/17 08:03 63 127/76 08/01/17 08:00 97.7 69 18 121/77 94 97.7 08/01/17 05:24 63 127/76 08/01/17 04:04 99.1 63 20 127/76 94 99.1 08/01/17 00:41 98.6 61 17 119/66 95 98.6 08/01/17 00:00 92 Nasal Cannula 3.0 07/31/17 21:49 67 123/69 07/31/17 20:53 66 112/63 07/31/17 20:53 112/63 07/31/17 20:22 98.8 66 17 112/63 92 98.8 07/31/17 20:00 94 Room Air 21 07/31/17 20:00 91 Nasal Cannula 3.0 07/31/17 19:30 Room Air 21 07/31/17 16:00 97.9 70 20 149/79 91 97.9 Intake and Output 07/31/17 08/01/17 19:00 07:00 Intake Total 350 ml 480 ml Balance 350 ml 480 ml Intake Oral 250 ml 480 ml IV Total 100 ml # Voids 3 Height (Feet): 5 Height (Inches): 5.00 Weight (Pounds): 194 General Appearance: no apparent distress Objective no change LIAM MONTELONGO Aug 01, 2017 15:20
--- NOTE | 2017-08-01 16:18 | Internal Med Progress Note ---
Subjective Physician Name Chaitanya Weinstein Attending Physician Chaitanya Weinstein MD Current Medications Medications (Trade) Dose Ordered Sig/Jose Route PRN Reason Start Time Stop Time Status Last Admin Dose Admin Alprazolam (Xanax) 2 mg DAILYPRN PRN ORAL For Anxiety 07/31/17 01:30 08/07/17 01:29 08/01/17 08:03 Amikacin Protocol (Amikacin pharmacy to dose) 1 ea DAILY PRN MISC Per rx protocol 07/16/17 09:00 08/03/17 15:14 Apixaban (Eliquis) 2.5 mg EVERY 12 HOURS ORAL 07/31/17 21:00 08/30/17 20:59 08/01/17 08:03 Carisoprodol (Soma) 350 mg Q6H PRN ORAL Muscle Spasm 07/18/17 15:30 08/17/17 15:29 08/01/17 03:51 Chlorhexidine Gluconate (Mireille-Hex 2%) 1 applic DAILY@1999 TOPIC 07/15/17 20:00 08/02/17 19:59 07/31/17 20:52 Clindamycin HCl (Cleocin) 450 mg EVERY 6 HOURS ORAL 07/24/17 12:00 09/04/17 11:59 08/01/17 11:34 Dextrose (Dextrose 50%) 25 ml STAT PRN IV HYPOGLYCEMIA 07/16/17 08:30 08/08/17 08:29 Diltiazem HCl (Cardizem) 60 mg Q8HR ORAL 07/22/17 22:00 08/21/17 21:59 07/31/17 21:49 Ethambutol HCl (Myambutol) 1,000 mg 3XW@2099 ORAL 07/23/17 21:00 08/22/17 20:59 07/30/17 21:36 Hydromorphone HCl (Dilaudid) 2 mg Q4H PRN IVP Severe Pain (Pain Scale 7-10) 07/30/17 23:15 08/06/17 23:14 08/01/17 14:53 Levofloxacin (Levaquin) 750 mg EVERY OTHER DAY@1999 ORAL 08/01/17 20:00 08/08/17 19:59 Lisinopril (Prinivil) 20 mg Q12HR ORAL 4/11/18 09:00 08/15/17 08:59 07/31/17 09:54 Metoprolol Tartrate (Lopressor) 100 mg Q12HR ORAL 07/15/17 21:00 08/10/17 20:59 07/31/17 20:53 Pantoprazole (Protonix) 40 mg BID ORAL 07/27/17 18:00 08/26/17 17:59 08/01/17 08:05 Temazepam (Restoril) 15 mg HSPRN PRN ORAL Insomnia 07/29/17 21:00 08/05/17 20:59 Allergies: Coded Allergies: IODINE AND IODIDE CONTAINING PRODUC (Verified Allergy, Mild, itching and pruritis, 06/25/17) Uncoded Allergies: CONTRAST/DYE (Allergy, Intermediate, PRURITIS AND ITCHING, 06/25/17) Subjective awake,alert, responsive , NAD. ambulating in room, demanding for pain shot. Objective Last Vital Signs Date Time Temp Pulse Resp B/P (MAP) Pulse Ox O2 Delivery O2 Flow Rate FiO2 08/01/17 15:08 97.4 08/01/17 13:46 71 136/85 08/01/17 12:00 18 97 08/01/17 00:00 Nasal Cannula 3.0 07/31/17 20:00 21 Intake and Output 07/31/17 08/01/17 19:00 07:00 Intake Total 350 ml 480 ml Balance 350 ml 480 ml Intake Oral 250 ml 480 ml IV Total 100 ml # Voids 3 Objective General: No acute distress, awake and alert HEENT: NCAT, sclera anicteric, PERRL, EOMI. Neck: Supple, no significant jugular venous distention, Right IJ cath. Lungs: Good inspiratory effort, no Wheeze or Rales. Heart: Regular rate and rhythm, normal S1/S2, no murmur Abdomen: soft, nontender, nondistended. Normoactive bowel sounds. Obesity Extremities: No Cyanosis , clubbing, or edema. Left UE AVF. Neuro: A&O x 3, Able to move all extremities Skin: warm, no rashes Assessment/Plan Assessment/Plan Right upper lobe cavitary mass Necrotizing PNA with cavitating lesion RUL r/o TB Acute hypoxemic RF requiring BiPAP -resolved Pleuritic chest pain likely due to necrotizing PNA . Elevated troponin Systolic CHF ( recent negative reversible perfusion defect.) cardiomyopathy pulmonary edema Asthma. End-stage renal disease, on hemodialysis. Hypertensive urgency . Anemia of chronic disease. History of intracardiac defibrillator placement. Prior history of cerebrovascular accident. ESRD on HD thrombocytopenia transaminitis hepatitis C liver cirrhosis cholelithiasis Plan: Monitor Labs and culture Full code F/U with ID recommendations - Cont oral Clinda d# 16 ( till resolution/ stabilization of abscess) ( abx d# 54 ) - Continue Ethambutol and Levaquin, Amikacin ( empiric TB AB Rx d# 44 TB control they want to cont TB Meds regardless of AFB Cultures Neg x 3 (called : 07/22 ) ) -At this point patient is cleared for discharge to SNF- patient with neg AFB cultures x3, more than 14 days TB treatment, off airborne isolation [place] planning DC Triple lumen cath switch Dilaudid IV to PO Chaitanya Weinstein MD Aug 01, 2017 16:18
--- NOTE | 2017-08-01 18:27 | General Progress Note ---
Assessment/Plan Assessment/Plan Assessment - gallstones - abnormal LFT / cirrhosis - Periodic N/V with abnormal GB ultrasound, ? possibly biliary colic - patient declined HIDA - Anemia, multifactorial - OB (+) Stool - ESRD/HD - DM - HTN - COPD - Cavitary lung disease - Thrombocytopenia - cirrhotic appearing liver on CT - Hepatitis C Ab (+)/ PCR (-) - Poor prognosis Recommendations - EGD/colon today - follow symptoms and exam - monitor LFT - avoid hepatotoxic meds - BID PPI - monitor CBC - abx per ID POST PROCEDURE NOTE EGD: Portal HTN gastropathy, esophageal white plaques (likely fungal) - sent for fungal culture Colon: Mild hemorrhoids Recommendations: resume PO and resume anticoagulation Subjective Allergies: Coded Allergies: IODINE AND IODIDE CONTAINING PRODUC (Verified Allergy, Mild, itching and pruritis, 06/25/17) Uncoded Allergies: CONTRAST/DYE (Allergy, Intermediate, PRURITIS AND ITCHING, 06/25/17) Subjective Feels OK (+) loose BM with prep NPO for EGD/Colon coags noted Objective Last 24 Hour Vital Signs Date Time Temp Pulse Resp B/P (MAP) Pulse Ox O2 Delivery O2 Flow Rate FiO2 08/01/17 17:41 98.6 08/01/17 16:00 98.6 76 19 136/87 92 98.6 08/01/17 15:08 97.4 08/01/17 14:53 97.4 08/01/17 13:46 71 136/85 08/01/17 12:00 97.4 71 18 136/85 97 97.4 08/01/17 10:44 97.7 08/01/17 08:05 127/76 08/01/17 08:03 63 127/76 08/01/17 08:00 97.7 69 18 121/77 94 97.7 08/01/17 05:24 63 127/76 08/01/17 04:04 99.1 63 20 127/76 94 99.1 08/01/17 00:41 98.6 61 17 119/66 95 98.6 08/01/17 00:00 92 Nasal Cannula 3.0 07/31/17 21:49 67 123/69 07/31/17 20:53 66 112/63 07/31/17 20:53 112/63 4/26/18 20:22 98.8 66 17 112/63 92 98.8 07/31/17 20:00 94 Room Air 21 07/31/17 20:00 91 Nasal Cannula 3.0 07/31/17 19:30 Room Air 21 Intake and Output 07/31/17 08/01/17 19:00 07:00 Intake Total 350 ml 480 ml Balance 350 ml 480 ml Intake Oral 250 ml 480 ml IV Total 100 ml # Voids 3 Height (Feet): 5 Height (Inches): 5.00 Weight (Pounds): 194 Objective WDWN AA Man NCAT supple CTA RRR Soft mildly distended, (+) trunk edema (++) leg edema PERCY JOYNER Aug 01, 2017 18:27
--- NOTE | 2017-08-01 18:31 | Infectious Diseases Prog Note ---
Assessment/Plan Assessment/Plan Cavitary PNA. SCx: Neg ( m/l anaerobic abscess than necrotizing Pneum , doubt TB or fungal ) ; improving - 07/09 SP BAL Cx( Abby and MOJGAN : Colonizers ) , Path : Neg for fungus and Malignancy -CXR 07/28: Possibly improving right lung cavitary lesion, over 7 days Otherwise unchanged findings as described. - Ch-CT 07/15 : The overall lesion appears smaller, measuring 6.3 cm AP by 3.6 cm transverse by 2.3 cm craniocaudad currently -CT chest 06/25: Since the prior study of 06/15/2017, and. From further reduction in size of previously demonstrated thick walled right upper lobe cavitary mass. This was previously thought to most likely represent a cavitary inflammatory mass, and the interim reduction in size certainly supports that. Much less likely a cavitary neoplasm, but follow-up to resolution is recommended. Markedly improved parenchymal disease bilaterally, since the previous study. Nonetheless , extensive atelectasis and groundglass consolidation persists. Persistent small right pleural effusion, smaller than on the prior study. Resolved left pleural effusion 6 mm nodular opacity in the right upper lobe, not evident previously but likely obscured by surrounding consolidated lung parenchyma. This should be followed up in 6 months to one year depending on results of interim follow-up exams T-SPOT :Neg Culture and stain AFB x 3 : Neg MTB PCR x2 : neg cryptococcus Ag, Histoplams mycelial Ab , Blastomyces ab : neg ; histoplasma yeast ab (not able to be done due to anticomplementary activity) -Cocci, Asp ag p -Fungitell + 144 (?aspergillosis vs m/l false positive) CT chest 06/15: Slightly smaller (6 cm diameter ) but mostly unchanged cavitary lesion in the right lung, previously thought to represent a cavitating inflammatory process. Lung abscess is certainly a possibility. Fairly extensive bilateral pulmonary parenchymal consolidation, slightly increased from previous exam of 06/05/2017. Likely a combination of pulmonary edema and pneumonia. Small right and trace left pleural effusion, new/increased from the previous study. CT 06/05: 7.8 x 5.3 x 6.6 cm dense opacity in the posterior inferior right upper lobe with a central cavitation. CRP 14 Influenza negative Coccidioidal ,Galactomannan : NEG ( PER LAB ) Transaminitis , improved after stopping rifampin 2/2 Hep C cirrhosis- no active Hep C as VL not detected -CT abd/p: Evidence of hepatic cirrhosis. Hepatosplenomegaly. evidence of generalized anasarca, with pleural fluid and generalized subcutaneous edema. Cholelithiasis, also previously reported. Possible diverticulosis. No evidence of diverticulitis US Abd : Cholelithiasis. There is gallbladder wall thickening, likely related to hemodynamic abnormalities Splenomegaly. Evidence of hepatic cirrhosis HIV : NEG Hep Panel B neg , C Ab : +ve , VL not detected leukopenia and TCP 2/2 splenomegaly Seizure disorder History of CVA History of pacemaker placement Hyperlipidemia Hypertension COPD/asthma End-stage renal disease, on hemodialysis Diabetes Anxiety Anemia Echo, ejection fraction 45% to 50%. PLAN: - Cont oral Clinda d# 17 ( till resolution/ stabilization of abscess) ( abx d# 55 ) Continue Ethambutol and Levaquin, Amikacin ( empiric TB AB Rx d# 45 TB control they want to cont TB Meds regardless of AFB Cultures Neg x 3 (called : 07/22 ) ) --switch IV amikacin TO IM (discussed with pharmacy) -At this point patient is cleared for discharge to SNF- patient with neg final AFB cultures x3, more than 30 days of TB treatment, off airborne isolation; however still pending clearance for Dept of Public health 07/16 SP Zoysn d# 9 ( for SOB and CXR worsen , better coverage of anaerobes, PSA and Providencia ); 07/07 Flagyl 07/06 SP Voriconazole ( low antonio for fungal infection , and in the setting of cirrhosis ) 07/05 SP Micafungin abx d#20 , Rifampin 600mg qd #10 07/01 SP Ceftriaxone #10 06/28 SP Amikacin #15 06/25 SP PO Voriconazole #3 06/20 SP Liposomal Ampho #8 06/17 SP IV Vancomycin #14, Meropenem #5 06/13 SP Zosyn d# 10 06/08 SP Zithromax D# 6 BAL fungal and AFB Cx : P - CMP Discussed with RN, pharobertoci and rn case manager hospice. Subjective Allergies: Coded Allergies: IODINE AND IODIDE CONTAINING PRODUC (Verified Allergy, Mild, itching and pruritis, 06/25/17) Uncoded Allergies: CONTRAST/DYE (Allergy, Intermediate, PRURITIS AND ITCHING, 06/25/17) Subjective afebrile no leukocytosis Discharge planning RIJ removed dilaudid switch to PO Objective Vital Signs Last 24 Hour Vital Signs Date Time Temp Pulse Resp B/P (MAP) Pulse Ox O2 Delivery O2 Flow Rate FiO2 08/01/17 17:41 98.6 08/01/17 16:00 98.6 76 19 136/87 92 98.6 08/01/17 15:08 97.4 08/01/17 14:53 97.4 08/01/17 13:46 71 136/85 08/01/17 12:00 97.4 71 18 136/85 97 97.4 08/01/17 10:44 97.7 08/01/17 08:05 127/76 08/01/17 08:03 63 127/76 08/01/17 08:00 97.7 69 18 121/77 94 97.7 08/01/17 05:24 63 127/76 08/01/17 04:04 99.1 63 20 127/76 94 99.1 08/01/17 00:41 98.6 61 17 119/66 95 98.6 08/01/17 00:00 92 Nasal Cannula 3.0 07/31/17 21:49 67 123/69 07/31/17 20:53 66 112/63 07/31/17 20:53 112/63 07/31/17 20:22 98.8 66 17 112/63 92 98.8 07/31/17 20:00 94 Room Air 21 07/31/17 20:00 91 Nasal Cannula 3.0 07/31/17 19:30 Room Air 21 Height (Feet): 5 Height (Inches): 5.00 Weight (Pounds): 194 Objective General Appearance: WD/WN, alert, moderate distress EENT: PERRL/EOMI, normal ENT inspection Neck: non-tender, normal alignment, supple, normal inspection Cardiovascular: normal peripheral pulses, normal rate, regular rhythm, no gallop/murmur, no JVD Respiratory/Chest: Non rebreather; respiratory distress, crackles/rales, rhonchi - bilaterally, expiratory wheezing Abdomen: normal bowel sounds, non tender, soft, no organomegaly, no mass Extremities: normal range of motion 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, no motor/sensory deficits Skin: normal pigmentation, warm/dry Current Medications Medications (Trade) Dose Ordered Sig/Jose Route PRN Reason Start Time Stop Time Status Last Admin Dose Admin Alprazolam (Xanax) 2 mg DAILYPRN PRN ORAL For Anxiety 07/31/17 01:30 08/07/17 01:29 08/01/17 08:03 Amikacin Protocol (Amikacin pharmacy to dose) 1 ea DAILY PRN MISC Per rx protocol 07/16/17 09:00 08/03/17 15:14 Apixaban (Eliquis) 2.5 mg EVERY 12 HOURS ORAL 07/31/17 21:00 08/30/17 20:59 08/01/17 08:03 Carisoprodol (Soma) 350 mg Q6H PRN ORAL Muscle Spasm 07/18/17 15:30 08/17/17 15:29 08/01/17 17:41 Chlorhexidine Gluconate (Mireille-Hex 2%) 1 applic DAILY@1999 TOPIC 07/15/17 20:00 08/02/17 19:59 07/31/17 20:52 Clindamycin HCl (Cleocin) 450 mg EVERY 6 HOURS ORAL 07/24/17 12:00 09/04/17 11:59 08/01/17 17:41 Dextrose (Dextrose 50%) 25 ml STAT PRN IV HYPOGLYCEMIA 07/16/17 08:30 08/08/17 08:29 Diltiazem HCl (Cardizem) 60 mg Q8HR ORAL 07/22/17 22:00 08/21/17 21:59 07/31/17 21:49 Ethambutol HCl (Myambutol) 1,000 mg 3XW@2099 ORAL 07/23/17 21:00 08/22/17 20:59 07/30/17 21:36 Hydromorphone HCl (Dilaudid) 2 mg Q4H PRN ORAL For Pain 08/01/17 19:00 08/08/17 18:59 Levofloxacin (Levaquin) 750 mg EVERY OTHER DAY@1999 ORAL 08/01/17 20:00 08/08/17 19:59 Lisinopril (Prinivil) 20 mg Q12HR ORAL 07/16/17 09:00 08/15/17 08:59 07/31/17 09:54 Metoprolol Tartrate (Lopressor) 100 mg Q12HR ORAL 07/15/17 21:00 08/10/17 20:59 07/31/17 20:53 Pantoprazole (Protonix) 40 mg BID ORAL 07/27/17 18:00 08/26/17 17:59 08/01/17 17:40 Temazepam (Restoril) 15 mg HSPRN PRN ORAL Insomnia 07/29/17 21:00 08/05/17 20:59 Aleja Crocker M.D. Aug 01, 2017 18:31
[2017-08-01] MEDS: HYDROmorphone 2mg tab ORAL PRN (20:54)
--- NOTE | 2017-08-01 23:06 | General Progress Note ---
Assessment/Plan Assessment/Plan Assessment - gallstones - abnormal LFT / cirrhosis - Periodic N/V with abnormal GB ultrasound, ? possibly biliary colic - patient declined HIDA - Anemia, multifactorial - OB (+) Stool - due to portal HTN gastropathy - ESRD/HD - DM - HTN - COPD - Cavitary lung disease - Thrombocytopenia - cirrhotic appearing liver on CT - Hepatitis C Ab (+)/ PCR (-) - Poor prognosis Recommendations - follow symptoms and exam - monitor LFT - avoid hepatotoxic meds - BID PPI - monitor CBC - abx per ID Subjective Allergies: Coded Allergies: IODINE AND IODIDE CONTAINING PRODUC (Verified Allergy, Mild, itching and pruritis, 06/25/17) Uncoded Allergies: CONTRAST/DYE (Allergy, Intermediate, PRURITIS AND ITCHING, 06/25/17) Subjective Feels OK tolerating PO Objective Last 24 Hour Vital Signs Date Time Temp Pulse Resp B/P (MAP) Pulse Ox O2 Delivery O2 Flow Rate FiO2 08/01/17 22:00 81 143/85 08/01/17 21:00 81 143/85 08/01/17 21:00 143/85 08/01/17 20:00 98.7 81 20 143/85 92 98.7 08/01/17 18:40 98.6 08/01/17 17:41 98.6 08/01/17 16:00 98.6 76 19 136/87 92 98.6 08/01/17 15:08 97.4 08/01/17 14:53 97.4 08/01/17 13:46 71 136/85 08/01/17 12:00 97.4 71 18 136/85 97 97.4 08/01/17 10:44 97.7 08/01/17 08:05 127/76 08/01/17 08:03 63 127/76 08/01/17 08:00 97.7 69 18 121/77 94 97.7 08/01/17 05:24 63 127/76 08/01/17 04:04 99.1 63 20 127/76 94 99.1 08/01/17 00:41 98.6 61 17 119/66 95 98.6 08/01/17 00:00 92 Nasal Cannula 3.0 Intake and Output 07/31/17 08/01/17 19:00 07:00 Intake Total 350 ml 480 ml Balance 350 ml 480 ml Intake Oral 250 ml 480 ml IV Total 100 ml # Voids 3 Height (Feet): 5 Height (Inches): 5.00 Weight (Pounds): 194 Objective WDWN AA Man NCAT supple CTA RRR Soft mildly distended, (+) trunk edema (++) leg edema PERCY JOYNER Aug 01, 2017 23:06
[2017-08-02 01:08] LABS: ALANINE AMINOTRANSFERASE 12 U/L (12-78); ALBUMIN 2.5 G/DL (3.4-5.0); ALBUMIN/GLOBULIN RATIO 0.6 (1.0-2.7); ALKALINE PHOSPHATASE 163 U/L (46-116); ANION GAP 13 mmol/L (5-15); ASPARTATE AMINO TRANSFERASE 24 U/L (15-37); BILIRUBIN,TOTAL 1.1 MG/DL (0.2-1.0); BLOOD UREA NITROGEN 54 mg/dL (7-18); CALCIUM 7.9 MG/DL (8.5-10.1); CARBON DIOXIDE 26 MMOL/L (21-32); CHLORIDE 97 MMOL/L (98-107); CREATININE 12.4 MG/DL (0.55-1.30); POTASSIUM 4.4 MMOL/L (3.5-5.1); SODIUM 136 MMOL/L (136-145)
[2017-08-02 01:10] LABS: BILIRUBIN,DIRECT 0.5 MG/DL (0.0-0.3)
[2017-08-02 02:41] VITALS: BP 167/42
[2017-08-02 04:00] VITALS: BP 128/75
[2017-08-02] MEDS: HYDROmorphone 2mg tab ORAL PRN ×4 (05:17→20:01)
[2017-08-02] MEDS: dilTIAZem HCl 60mg tab ORAL SCH ×3 (05:18→21:25)
[2017-08-02] MEDS: Clindamycin 150mg cap ORAL SCH ×3 (05:18→17:59)
[2017-08-02 08:00] VITALS: BP 111/62
[2017-08-02] MEDS: Lisinopril 20mg tab ORAL SCH ×2 (09:00→21:24)
[2017-08-02] MEDS: Eliquis 2.5mg tablet ORAL SCH ×2 (09:09→21:24)
--- NOTE | 2017-08-02 09:55 | Nephrology Progress Note ---
Assessment/Plan Problem List: (1) ESRD (end stage renal disease) on dialysis (2) Shortness of breath (3) Anemia Assessment Anemia- ESRD , missed HD on admission , admitted with high K and pulmonary edema Acute respiratory distress due to volume overload elevated troponin r/o ACS h/o COPD ? exacerbation HTN urgency Cardiomyopathy L AICD anemia of chronic kidney disease Hx of CVA Plan Plan: HD last 08/01 next 08/04 Kayexelate PRN Max UF Transfused Phos binders BP meds adjustment Optimize cardiac status per orders Subjective ROS Limited/Unobtainable: No Objective Objective Last 24 Hour Vital Signs Date Time Temp Pulse Resp B/P (MAP) Pulse Ox O2 Delivery O2 Flow Rate FiO2 08/02/17 09:08 96.0 08/02/17 09:00 79 111/62 08/02/17 09:00 111/62 08/02/17 08:00 96.0 79 18 111/62 91 Room Air 96.0 08/02/17 05:18 90 128/75 08/02/17 04:00 98.5 90 20 128/75 100 98.5 08/02/17 02:50 Room Air 08/02/17 02:46 Room Air 08/02/17 02:41 97.8 85 20 167/42 Room Air 97.8 08/01/17 23:30 Room Air 08/01/17 23:30 97.6 79 20 145/87 Room Air 97.6 08/01/17 22:00 81 143/85 08/01/17 21:00 81 143/85 08/01/17 21:00 143/85 08/01/17 20:00 98.7 81 20 143/85 92 98.7 08/01/17 18:40 98.6 08/01/17 17:41 98.6 08/01/17 16:00 98.6 76 19 136/87 92 98.6 08/01/17 15:08 97.4 08/01/17 14:53 97.4 08/01/17 13:46 71 136/85 08/01/17 12:00 97.4 71 18 136/85 97 97.4 08/01/17 10:44 97.7 Intake and Output 08/01/17 08/02/17 19:00 07:00 Intake Total 600 ml Output Total 2391 ml Balance 600 ml -2391 ml Intake Oral 600 ml Hemodialysis UF 2391 ml # Voids 2 Laboratory Tests 08/01/17 23:50: Sodium Level 136, Potassium Level 4.4, Chloride Level 97L, Carbon Dioxide Level 26, Anion Gap 13, Blood Urea Nitrogen 54H, Creatinine 12.4H, Estimat Glomerular Filtration Rate 5.1, Glucose Level 124H, Calcium Level 7.9L, Total Bilirubin 1.1H, Direct Bilirubin 0.5H, Aspartate Amino Transf (AST/SGOT) 24, Alanine Aminotransferase (ALT/SGPT) 12, Alkaline Phosphatase 163H, Total Protein 6.5, Albumin 2.5L, Globulin 4.0, Albumin/Globulin Ratio 0.6L, Random Amikacin Level [ Pending] Height (Feet): 5 Height (Inches): 5.00 Weight (Pounds): 195 General Appearance: no apparent distress Respiratory/Chest: decreased breath sounds Abdomen: soft Objective no change LIAM MONTELONGO Aug 02, 2017 09:55
--- NOTE | 2017-08-02 11:08 | Infectious Diseases Prog Note ---
Assessment/Plan Assessment/Plan Assessment/Plan Cavitary PNA. SCx: Neg ( m/l anaerobic abscess than necrotizing Pneum , doubt TB or fungal ) ; improving - 07/09 SP BAL Cx( Abby and MOJGAN : Colonizers ) , Path : Neg for fungus and Malignancy -CXR 07/28: Possibly improving right lung cavitary lesion, over 7 days Otherwise unchanged findings as described. - Ch-CT 07/15 : The overall lesion appears smaller, measuring 6.3 cm AP by 3.6 cm transverse by 2.3 cm craniocaudad currently -CT chest 06/25: Since the prior study of 06/15/2017, and. From further reduction in size of previously demonstrated thick walled right upper lobe cavitary mass. This was previously thought to most likely represent a cavitary inflammatory mass, and the interim reduction in size certainly supports that. Much less likely a cavitary neoplasm, but follow-up to resolution is recommended. Markedly improved parenchymal disease bilaterally, since the previous study. Nonetheless , extensive atelectasis and groundglass consolidation persists. Persistent small right pleural effusion, smaller than on the prior study. Resolved left pleural effusion 6 mm nodular opacity in the right upper lobe, not evident previously but likely obscured by surrounding consolidated lung parenchyma. This should be followed up in 6 months to one year depending on results of interim follow-up exams T-SPOT :Neg Culture and stain AFB x 3 : Neg MTB PCR x2 : neg cryptococcus Ag, Histoplams mycelial Ab , Blastomyces ab : neg ; histoplasma yeast ab (not able to be done due to anticomplementary activity) -Cocci, Asp ag p -Fungitell + 144 (?aspergillosis vs m/l false positive) CT chest 06/15: Slightly smaller (6 cm diameter ) but mostly unchanged cavitary lesion in the right lung, previously thought to represent a cavitating inflammatory process. Lung abscess is certainly a possibility. Fairly extensive bilateral pulmonary parenchymal consolidation, slightly increased from previous exam of 06/05/2017. Likely a combination of pulmonary edema and pneumonia. Small right and trace left pleural effusion, new/increased from the previous study. CT 06/05: 7.8 x 5.3 x 6.6 cm dense opacity in the posterior inferior right upper lobe with a central cavitation. CRP 14 Influenza negative Coccidioidal ,Galactomannan : NEG ( PER LAB ) Transaminitis , improved after stopping rifampin 2/2 Hep C cirrhosis- no active Hep C as VL not detected -CT abd/p: Evidence of hepatic cirrhosis. Hepatosplenomegaly. evidence of generalized anasarca, with pleural fluid and generalized subcutaneous edema. Cholelithiasis, also previously reported. Possible diverticulosis. No evidence of diverticulitis US Abd : Cholelithiasis. There is gallbladder wall thickening, likely related to hemodynamic abnormalities Splenomegaly. Evidence of hepatic cirrhosis HIV : NEG Hep Panel B neg , C Ab : +ve , VL not detected leukopenia and TCP 2/2 splenomegaly Seizure disorder History of CVA History of pacemaker placement Hyperlipidemia Hypertension COPD/asthma End-stage renal disease, on hemodialysis Diabetes Anxiety Anemia Echo, ejection fraction 45% to 50%. PLAN: - Cont oral Clinda d# 18 ( till resolution/ stabilization of abscess) ( abx d# 56 ) Continue Ethambutol and Levaquin, Amikacin ( empiric TB AB Rx d# 46 TB control they want to cont TB Meds regardless of AFB Cultures Neg x 3 (called : 07/22 ) ) --switch IV amikacin TO IM (discussed with pharmacy) -At this point patient is cleared for discharge to SNF- patient with neg final AFB cultures x3, more than 30 days of TB treatment, off airborne isolation; however still pending clearance for Dept of Public health 07/16 SP Zoysn d# 9 ( for SOB and CXR worsen , better coverage of anaerobes, PSA and Providencia ); 07/07 Flagyl 07/06 SP Voriconazole ( low antonio for fungal infection , and in the setting of cirrhosis ) 07/05 SP Micafungin abx d#20 , Rifampin 600mg qd #10 07/01 SP Ceftriaxone #10 06/28 SP Amikacin #15 06/25 SP PO Voriconazole #3 06/20 SP Liposomal Ampho #8 06/17 SP IV Vancomycin #14, Meropenem #5 06/13 SP Zosyn d# 10 06/08 SP Zithromax D# 6 BAL fungal and AFB Cx : P - CMP Subjective Allergies: Coded Allergies: IODINE AND IODIDE CONTAINING PRODUC (Verified Allergy, Mild, itching and pruritis, 06/25/17) Uncoded Allergies: CONTRAST/DYE (Allergy, Intermediate, PRURITIS AND ITCHING, 06/25/17) Subjective comfortable Objective Vital Signs Last 24 Hour Vital Signs Date Time Temp Pulse Resp B/P (MAP) Pulse Ox O2 Delivery O2 Flow Rate FiO2 08/02/17 10:07 96.0 08/02/17 09:08 96.0 08/02/17 09:00 79 111/62 08/02/17 09:00 111/62 08/02/17 08:00 96.0 79 18 111/62 91 Room Air 96.0 08/02/17 05:18 90 128/75 08/02/17 04:00 98.5 90 20 128/75 100 98.5 08/02/17 02:50 Room Air 08/02/17 02:46 Room Air 08/02/17 02:41 97.8 85 20 167/42 Room Air 97.8 08/01/17 23:30 Room Air 08/01/17 23:30 97.6 79 20 145/87 Room Air 97.6 08/01/17 22:00 81 143/85 08/01/17 21:00 81 143/85 08/01/17 21:00 143/85 08/01/17 20:00 98.7 81 20 143/85 92 98.7 08/01/17 17:41 98.6 08/01/17 16:00 98.6 76 19 136/87 92 98.6 08/01/17 15:08 97.4 08/01/17 14:53 97.4 08/01/17 13:46 71 136/85 08/01/17 12:00 97.4 71 18 136/85 97 97.4 Height (Feet): 5 Height (Inches): 5.00 Weight (Pounds): 195 HEENT: anicteric Respiratory/Chest: normal breath sounds Cardiovascular: regular rhythm Abdomen: no organomegaly Laboratory Tests Test 08/01/17 23:50 Sodium Level 136 MMOL/L (136-145) Potassium Level 4.4 MMOL/L (3.5-5.1) Chloride Level 97 MMOL/L (98-107) L Carbon Dioxide Level 26 MMOL/L (21-32) Anion Gap 13 mmol/L (5-15) Blood Urea Nitrogen 54 mg/dL (7-18) H Creatinine 12.4 MG/DL (0.55-1.30) H Estimat Glomerular Filtration Rate 5.1 mL/min (>60) Glucose Level 124 MG/DL (74-106) H Calcium Level 7.9 MG/DL (8.5-10.1) L Total Bilirubin 1.1 MG/DL (0.2-1.0) H Direct Bilirubin 0.5 MG/DL (0.0-0.3) H Aspartate Amino Transf (AST/SGOT) 24 U/L (15-37) Alanine Aminotransferase (ALT/SGPT) 12 U/L (12-78) Alkaline Phosphatase 163 U/L (46-116) H Total Protein 6.5 G/DL (6.4-8.2) Albumin 2.5 G/DL (3.4-5.0) L Globulin 4.0 g/dL Albumin/Globulin Ratio 0.6 (1.0-2.7) L Random Amikacin Level Pending Current Medications Medications (Trade) Dose Ordered Sig/Jose Route PRN Reason Start Time Stop Time Status Last Admin Dose Admin Alprazolam (Xanax) 2 mg DAILYPRN PRN ORAL For Anxiety 07/31/17 01:30 08/07/17 01:29 08/01/17 23:30 Amikacin Protocol (Amikacin pharmacy to dose) 1 ea DAILY PRN MISC Per rx protocol 07/16/17 09:00 08/03/17 15:14 Apixaban (Eliquis) 2.5 mg EVERY 12 HOURS ORAL 07/31/17 21:00 08/30/17 20:59 08/02/17 09:09 Carisoprodol (Soma) 350 mg Q6H PRN ORAL Muscle Spasm 07/18/17 15:30 08/17/17 15:29 08/02/17 09:08 Clindamycin HCl (Cleocin) 450 mg EVERY 6 HOURS ORAL 07/24/17 12:00 09/04/17 11:59 08/02/17 05:18 Dextrose (Dextrose 50%) 25 ml STAT PRN IV HYPOGLYCEMIA 07/16/17 08:30 08/08/17 08:29 Diltiazem HCl (Cardizem) 60 mg Q8HR ORAL 07/22/17 22:00 08/21/17 21:59 08/02/17 05:18 Ethambutol HCl (Myambutol) 1,000 mg 3XW@2100 ORAL 07/23/17 21:00 08/22/17 20:59 08/01/17 20:34 Hydromorphone HCl (Dilaudid) 2 mg Q4H PRN ORAL For Pain 08/01/17 19:00 08/08/17 18:59 08/02/17 05:17 Levofloxacin (Levaquin) 750 mg EVERY OTHER DAY@2000 ORAL 08/01/17 20:00 08/08/17 19:59 08/01/17 20:34 Lisinopril (Prinivil) 20 mg Q12HR ORAL 07/16/17 09:00 08/15/17 08:59 07/31/17 09:54 Metoprolol Tartrate (Lopressor) 100 mg Q12HR ORAL 07/15/17 21:00 08/10/17 20:59 07/31/17 20:53 Pantoprazole (Protonix) 40 mg BID ORAL 07/27/17 18:00 08/26/17 17:59 08/02/17 09:07 Temazepam (Restoril) 15 mg HSPRN PRN ORAL Insomnia 07/29/17 21:00 08/05/17 20:59 Cristofer Antunez MD Aug 02, 2017 11:07
[2017-08-02 12:00] VITALS: BP 115/65
[2017-08-02 16:00] VITALS: BP 120/71
--- NOTE | 2017-08-02 19:47 | Internal Med Progress Note ---
Subjective Physician Name Chaitanya Weinstein Attending Physician Chaitanya Weinstein MD Current Medications Medications (Trade) Dose Ordered Sig/Jose Route PRN Reason Start Time Stop Time Status Last Admin Dose Admin Alprazolam (Xanax) 2 mg BID PRN ORAL For Anxiety 08/02/17 14:15 08/07/17 01:29 Amikacin Protocol (Amikacin pharmacy to dose) 1 ea DAILY PRN MISC Per rx protocol 07/16/17 09:00 08/03/17 15:14 Apixaban (Eliquis) 2.5 mg EVERY 12 HOURS ORAL 07/31/17 21:00 08/30/17 20:59 08/02/17 09:09 Carisoprodol (Soma) 350 mg Q6H PRN ORAL Muscle Spasm 07/18/17 15:30 08/17/17 15:29 08/02/17 18:58 Clindamycin HCl (Cleocin) 450 mg EVERY 6 HOURS ORAL 07/24/17 12:00 09/04/17 11:59 08/02/17 17:59 Dextrose (Dextrose 50%) 25 ml STAT PRN IV HYPOGLYCEMIA 07/16/17 08:30 08/08/17 08:29 Diltiazem HCl (Cardizem) 60 mg Q8HR ORAL 07/22/17 22:00 08/21/17 21:59 08/02/17 05:18 Ethambutol HCl (Myambutol) 1,000 mg 3XW@2100 ORAL 07/23/17 21:00 08/22/17 20:59 08/01/17 20:34 Hydromorphone HCl (Dilaudid) 2 mg Q4H PRN ORAL For Pain 08/01/17 19:00 08/08/17 18:59 08/02/17 15:27 Levofloxacin (Levaquin) 750 mg EVERY OTHER DAY@2000 ORAL 08/01/17 20:00 08/08/17 19:59 08/01/17 20:34 Lisinopril (Prinivil) 20 mg Q12HR ORAL 07/16/17 09:00 08/15/17 08:59 07/31/17 09:54 Metoprolol Tartrate (Lopressor) 100 mg Q12HR ORAL 07/15/17 21:00 08/10/17 20:59 07/31/17 20:53 Pantoprazole (Protonix) 40 mg BID ORAL 07/27/17 18:00 08/26/17 17:59 08/02/17 17:59 Temazepam (Restoril) 15 mg HSPRN PRN ORAL Insomnia 07/29/17 21:00 08/05/17 20:59 Allergies: Coded Allergies: IODINE AND IODIDE CONTAINING PRODUC (Verified Allergy, Mild, itching and pruritis, 06/25/17) Uncoded Allergies: CONTRAST/DYE (Allergy, Intermediate, PRURITIS AND ITCHING, 06/25/17) Subjective awake,alert, responsive , NAD. Objective Last Vital Signs Date Time Temp Pulse Resp B/P (MAP) Pulse Ox O2 Delivery O2 Flow Rate FiO2 08/02/17 18:58 98.0 08/02/17 16:00 80 18 120/71 92 Room Air 08/02/17 13:27 2.0 28 Laboratory Tests Test 08/01/17 23:50 Sodium Level 136 MMOL/L (136-145) Potassium Level 4.4 MMOL/L (3.5-5.1) Chloride Level 97 MMOL/L (98-107) L Carbon Dioxide Level 26 MMOL/L (21-32) Anion Gap 13 mmol/L (5-15) Blood Urea Nitrogen 54 mg/dL (7-18) H Creatinine 12.4 MG/DL (0.55-1.30) H Estimat Glomerular Filtration Rate 5.1 mL/min (>60) Glucose Level 124 MG/DL (74-106) H Calcium Level 7.9 MG/DL (8.5-10.1) L Total Bilirubin 1.1 MG/DL (0.2-1.0) H Direct Bilirubin 0.5 MG/DL (0.0-0.3) H Aspartate Amino Transf (AST/SGOT) 24 U/L (15-37) Alanine Aminotransferase (ALT/SGPT) 12 U/L (12-78) Alkaline Phosphatase 163 U/L (46-116) H Total Protein 6.5 G/DL (6.4-8.2) Albumin 2.5 G/DL (3.4-5.0) L Globulin 4.0 g/dL Albumin/Globulin Ratio 0.6 (1.0-2.7) L Random Amikacin Level 16.1 MG/L Intake and Output 08/01/17 08/02/17 19:00 07:00 Intake Total 600 ml Output Total 2391 ml Balance 600 ml -2391 ml Intake Oral 600 ml Hemodialysis UF 2391 ml # Voids 2 Objective General: No acute distress, awake and alert HEENT: NCAT, sclera anicteric, PERRL, EOMI. Neck: Supple, no significant jugular venous distention, Removed Right IJ cath. Lungs: Fair inspiratory effort, no Wheeze or Rales. Heart: Regular rate and rhythm, normal S1/S2, no murmur Abdomen: soft, nontender, nondistended. Normoactive bowel sounds. Obesity Extremities: No Cyanosis , clubbing, or edema. Left UE AVF. Neuro: A&O x 3, Able to move all extremities Skin: warm, no rashes Assessment/Plan Assessment/Plan Right upper lobe cavitary mass Necrotizing PNA with cavitating lesion RUL r/o TB Acute hypoxemic RF requiring BiPAP -resolved Pleuritic chest pain likely due to necrotizing PNA . Elevated troponin Systolic CHF ( recent negative reversible perfusion defect.) cardiomyopathy pulmonary edema Asthma. End-stage renal disease, on hemodialysis. Hypertensive urgency . Anemia of chronic disease. History of intracardiac defibrillator placement. Prior history of cerebrovascular accident. ESRD on HD thrombocytopenia transaminitis hepatitis C liver cirrhosis cholelithiasis Plan: Monitor Labs and culture Full code F/U with ID recommendations - Cont oral Clindamycin ( till resolution/ stabilization of abscess) ( abx d # 54 ) - Continue Ethambutol and Levaquin, Amikacin ( empiric TB AB Rx d# 44 TB control they want to cont TB Meds regardless of AFB Cultures Neg x 3 (called : 07/22 ) ) -At this point patient is cleared for discharge to SNF- patient with neg AFB cultures x3, more than 13 days TB treatment, off airborne isolation DC planning, waiting placement On Dilaudid Chaitanya Arenas MD Aug 02, 2017 19:47
[2017-08-02 20:00] VITALS: BP 140/87
--- NOTE | 2017-08-02 21:58 | General Progress Note ---
Assessment/Plan Assessment/Plan #. Left leg dvt --> acute onset, will need to review final duplex results --> on apixaban daily x 3 months, low h/h will need to monitor closely --> okay to change to different anticoagulant if renal clearance an issue --> If h/h downtrends below 7.5, consider ivc filter placement. --> Hemoglobin currently >7.5 #. Anemia secondary to chronic disease. --> Hemoglobin levels have been stable. No blood transfusion required at this time. --> S/P abd CAT scan revealing evidence of hepatic cirrhosis. --> Continue to closely monitor and trend cbc daily. --> Anemia workup completed and reviewed. Iron 42, TIBC 180, Ferritin 593, B12 876. --> Ferritin is >500, hgb goal is >7 --> Anemia w/u has been reviewed --> ++Occult blood. Consider GI Services and Recs. #. Thrombocytopenia. --> Hepatitis C ab ++, PCR - --> Monitor platelet level. Transfuse if platelet count <20k --> Levels remain low. Monitor and trend cbc daily. # Hepatosplenomegaly. Ascites. There is also evidence of generalized anasarca, with pleural fluid and generalized subcutaneous edema --> Abd pain improved on pain management --> Refer to surgery note. #. Anemia of kidney disease --> HD as needed per nephrology team --> Monitor closely. --> Does not require iron at this time #. Generalized body ache related to fluid overload. #. End-stage renal disease, on hemodialysis as needed --> On hemodialysis #. Respiratory failure due to CHF and pneumonia. --> Providencia and pseudomonas. --> On vancomycin and ethambutol per ID. --> Chest pain improved at this time, on pain management. Chest xray on 07/28 showing that cavitary lesion improving. #. Shortness of breath. Due to underlying pneumonia. #. Atrial flutter with rapid ventricular response. On metoprolol and diltiazem. #. Conjunctivitis. Begin tobramycin. On anti TB treatment. On Amikacin and ethambutol. Continue telemetry. Subjective Date patient seen: Aug 01, 2017 Constitutional: Denies: no symptoms, chills, diaphoresis, fever, malaise, weakness, other HEENT: Denies: no symptoms, eye pain, blurred vision, tearing, double vision, ear pain, ear discharge, nose pain, nose congestion, throat pain, throat swelling, mouth pain, mouth swelling, other Cardiovascular: Denies: no symptoms, chest pain, edema, irregular heart rate, lightheadedness, palpitations, syncope, other Respiratory: Denies: no symptoms, cough, orthopnea, shortness of breath, SOB with excertion, SOB at rest, sputum, stridor, wheezing, other Gastrointestinal/Abdominal: Denies: no symptoms, abdomen distended, abdominal pain, black stools, tarry stools, blood in stool, constipated, diarrhea, difficulty swallowing, nausea, poor appetite, poor fluid intake, rectal bleeding , vomiting, other Genitourinary: Denies: no symptoms, burning, discharge, frequency, flank pain, hematuria, incontinence, pain, urgency, other Neurologic/Psychiatric: Denies: no symptoms, anxiety, depressed, emotional problems, headache, numbness, paresthesia, pre-existing deficit, seizure, tingling, tremors, weakness, other Allergies: Coded Allergies: IODINE AND IODIDE CONTAINING PRODUC (Verified Allergy, Mild, itching and pruritis, 06/25/17) Uncoded Allergies: CONTRAST/DYE (Allergy, Intermediate, PRURITIS AND ITCHING, 06/25/17) Subjective On pain control. Vitals are stable. No acute events. Objective Last 24 Hour Vital Signs Date Time Temp Pulse Resp B/P (MAP) Pulse Ox O2 Delivery O2 Flow Rate FiO2 08/02/17 21:25 85 140/87 08/02/17 21:25 85 140/87 08/02/17 21:24 140/87 08/02/17 20:00 98.5 85 22 140/87 98 98.5 08/02/17 18:58 98.0 08/02/17 16:26 98.0 08/02/17 16:00 98.0 80 18 120/71 92 Room Air 98.0 08/02/17 15:27 97.0 08/02/17 14:00 81 115/65 08/02/17 13:27 Nasal Cannula 2.0 28 08/02/17 13:27 96 Nasal Cannula 2.0 08/02/17 12:00 97.0 81 18 115/65 92 Room Air 97.0 08/02/17 11:19 96.0 08/02/17 10:07 96.0 08/02/17 09:08 96.0 08/02/17 09:00 79 111/62 08/02/17 09:00 111/62 08/02/17 08:00 96.0 79 18 111/62 91 Room Air 96.0 08/02/17 05:18 90 128/75 08/02/17 04:00 98.5 90 20 128/75 100 98.5 08/02/17 02:50 Room Air 08/02/17 02:46 Room Air 08/02/17 02:41 97.8 85 20 167/42 Room Air 97.8 08/01/17 23:30 Room Air 08/01/17 23:30 97.6 79 20 145/87 Room Air 97.6 08/01/17 22:00 81 143/85 Intake and Output 08/01/17 08/02/17 19:00 07:00 Intake Total 600 ml Output Total 2391 ml Balance 600 ml -2391 ml Intake Oral 600 ml Hemodialysis UF 2391 ml # Voids 2 Laboratory Tests 08/01/17 23:50: Sodium Level 136, Potassium Level 4.4, Chloride Level 97L, Carbon Dioxide Level 26, Anion Gap 13, Blood Urea Nitrogen 54H, Creatinine 12.4H, Estimat Glomerular Filtration Rate 5.1, Glucose Level 124H, Calcium Level 7.9L, Total Bilirubin 1.1H, Direct Bilirubin 0.5H, Aspartate Amino Transf (AST/SGOT) 24, Alanine Aminotransferase (ALT/SGPT) 12, Alkaline Phosphatase 163H, Total Protein 6.5, Albumin 2.5L, Globulin 4.0, Albumin/Globulin Ratio 0.6L, Random Amikacin Level 16.1 Height (Feet): 5 Height (Inches): 5.00 Weight (Pounds): 195 General Appearance: confused Respiratory/Chest: decreased breath sounds Irving Parker MD Aug 02, 2017 21:58
--- NOTE | 2017-08-02 22:29 | Pulmonology Progress Note ---
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 prbc prn on anti TB meds wtih IV Amikacin, ethambutol and Levofloxacin continue current meds Subjective ROS Limited/Unobtainable: No Allergies: Coded Allergies: IODINE AND IODIDE CONTAINING PRODUC (Verified Allergy, Mild, itching and pruritis, 06/25/17) Uncoded Allergies: CONTRAST/DYE (Allergy, Intermediate, PRURITIS AND ITCHING, 06/25/17) Objective Last 24 Hour Vital Signs Date Time Temp Pulse Resp B/P (MAP) Pulse Ox O2 Delivery O2 Flow Rate FiO2 08/02/17 21:25 85 140/87 08/02/17 21:25 85 140/87 08/02/17 21:24 140/87 08/02/17 20:00 98.5 85 22 140/87 98 98.5 08/02/17 18:58 98.0 08/02/17 16:26 98.0 08/02/17 16:00 98.0 80 18 120/71 92 Room Air 98.0 08/02/17 15:27 97.0 08/02/17 14:00 81 115/65 08/02/17 13:27 Nasal Cannula 2.0 28 08/02/17 13:27 96 Nasal Cannula 2.0 28 08/02/17 12:00 97.0 81 18 115/65 92 Room Air 97.0 08/02/17 11:19 96.0 08/02/17 10:07 96.0 08/02/17 09:08 96.0 08/02/17 09:00 79 111/62 08/02/17 09:00 111/62 08/02/17 08:00 96.0 79 18 111/62 91 Room Air 96.0 08/02/17 05:18 90 128/75 08/02/17 04:00 98.5 90 20 128/75 100 98.5 08/02/17 02:50 Room Air 08/02/17 02:46 Room Air 08/02/17 02:41 97.8 85 20 167/42 Room Air 97.8 08/01/17 23:30 Room Air 08/01/17 23:30 97.6 79 20 145/87 Room Air 97.6 Intake and Output 08/01/17 08/02/17 19:00 07:00 Intake Total 600 ml Output Total 2391 ml Balance 600 ml -2391 ml Intake Oral 600 ml Hemodialysis UF 2391 ml # Voids 2 Objective General Appearance: WD/WN HEENT: normocephalic, atraumatic, anicteric Respiratory/Chest: loud rhonchi Cardiovascular: normal peripheral pulses, normal rate, regular rhythm Abdomen: normal bowel sounds, soft, non tender, no organomegaly Genitourinary: normal external genitalia Extremities: no cyanosis Skin: no rash, no lesions 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, no motor/sensory deficits Lymphatic: no neck adenopathy, no groin adenopathy Laboratory Tests 08/01/17 23:50: Sodium Level 136, Potassium Level 4.4, Chloride Level 97L, Carbon Dioxide Level 26, Anion Gap 13, Blood Urea Nitrogen 54H, Creatinine 12.4H, Estimat Glomerular Filtration Rate 5.1, Glucose Level 124H, Calcium Level 7.9L, Total Bilirubin 1.1H, Direct Bilirubin 0.5H, Aspartate Amino Transf (AST/SGOT) 24, Alanine Aminotransferase (ALT/SGPT) 12, Alkaline Phosphatase 163H, Total Protein 6.5, Albumin 2.5L, Globulin 4.0, Albumin/Globulin Ratio 0.6L, Random Amikacin Level 16.1 Current Medications Medications (Trade) Dose Ordered Sig/Jose Route PRN Reason Start Time Stop Time Status Last Admin Dose Admin Alprazolam (Xanax) 2 mg BID PRN ORAL For Anxiety 08/02/17 14:15 08/07/17 01:29 Amikacin Protocol (Amikacin pharmacy to dose) 1 ea DAILY PRN MISC Per rx protocol 07/16/17 09:00 08/03/17 15:14 Apixaban (Eliquis) 2.5 mg EVERY 12 HOURS ORAL 07/31/17 21:00 08/30/17 20:59 08/02/17 21:24 Carisoprodol (Soma) 350 mg Q6H PRN ORAL Muscle Spasm 07/18/17 15:30 08/17/17 15:29 08/02/17 18:58 Clindamycin HCl (Cleocin) 450 mg EVERY 6 HOURS ORAL 07/24/17 12:00 09/04/17 11:59 08/02/17 17:59 Dextrose (Dextrose 50%) 25 ml STAT PRN IV HYPOGLYCEMIA 07/16/17 08:30 08/08/17 08:29 Diltiazem HCl (Cardizem) 60 mg Q8HR ORAL 07/22/17 22:00 08/21/17 21:59 08/02/17 21:25 Ethambutol HCl (Myambutol) 1,000 mg 3XW@2100 ORAL 07/23/17 21:00 08/22/17 20:59 08/01/17 20:34 Hydromorphone HCl (Dilaudid) 2 mg Q4H PRN ORAL For Pain 08/01/17 19:00 08/08/17 18:59 08/02/17 20:01 Levofloxacin (Levaquin) 750 mg EVERY OTHER DAY@1999 ORAL 08/01/17 20:00 08/08/17 19:59 08/01/17 20:34 Lisinopril (Prinivil) 20 mg Q12HR ORAL 07/16/17 09:00 08/15/17 08:59 08/02/17 21:24 Metoprolol Tartrate (Lopressor) 100 mg Q12HR ORAL 07/15/17 21:00 08/10/17 20:59 08/02/17 21:25 Pantoprazole (Protonix) 40 mg BID ORAL 07/27/17 18:00 08/26/17 17:59 08/02/17 17:59 Temazepam (Restoril) 15 mg HSPRN PRN ORAL Insomnia 07/29/17 21:00 08/05/17 20:59 08/02/17 21:24 Christine Morgan MD Aug 02, 2017 22:29
[2017-08-03] VITALS: BP 133/84
[2017-08-03] MEDS: Clindamycin 150mg cap ORAL SCH ×5 (00:04→23:14)
[2017-08-03] MEDS: HYDROmorphone 2mg tab ORAL PRN ×5 (00:05→21:14)
[2017-08-03 04:00] VITALS: BP 128/76
[2017-08-03] MEDS: dilTIAZem HCl 60mg tab ORAL SCH ×3 (05:50→21:14)
[2017-08-03 08:00] VITALS: BP 137/68
[2017-08-03] MEDS: Eliquis 2.5mg tablet ORAL SCH ×2 (08:53→21:12)
[2017-08-03] MEDS: Lisinopril 20mg tab ORAL SCH ×2 (08:54→21:13)
--- NOTE | 2017-08-03 10:37 | Internal Med Progress Note ---
Subjective Physician Name Chaitanya Weinstein Attending Physician Chaitanya Weinstein MD Current Medications Medications (Trade) Dose Ordered Sig/Jose Route PRN Reason Start Time Stop Time Status Last Admin Dose Admin Alprazolam (Xanax) 2 mg BID PRN ORAL For Anxiety 08/02/17 14:15 08/07/17 01:29 Amikacin Protocol (Amikacin pharmacy to dose) 1 ea DAILY PRN MISC Per rx protocol 07/16/17 09:00 08/03/17 15:14 Apixaban (Eliquis) 2.5 mg EVERY 12 HOURS ORAL 07/31/17 21:00 08/30/17 20:59 08/03/17 08:53 Carisoprodol (Soma) 350 mg Q6H PRN ORAL Muscle Spasm 07/18/17 15:30 08/17/17 15:29 08/03/17 05:02 Clindamycin HCl (Cleocin) 450 mg EVERY 6 HOURS ORAL 07/24/17 12:00 09/04/17 11:59 08/03/17 05:50 Dextrose (Dextrose 50%) 25 ml STAT PRN IV HYPOGLYCEMIA 07/16/17 08:30 08/08/17 08:29 Diltiazem HCl (Cardizem) 60 mg Q8HR ORAL 07/22/17 22:00 08/21/17 21:59 08/03/17 05:50 Ethambutol HCl (Myambutol) 1,000 mg 3XW@2100 ORAL 07/23/17 21:00 08/22/17 20:59 08/01/17 20:34 Hydromorphone HCl (Dilaudid) 2 mg Q4H PRN ORAL For Pain 08/01/17 19:00 08/08/17 18:59 08/03/17 08:53 Levofloxacin (Levaquin) 750 mg EVERY OTHER DAY@2000 ORAL 08/01/17 20:00 08/08/17 19:59 08/01/17 20:34 Lisinopril (Prinivil) 20 mg Q12HR ORAL 07/16/17 09:00 08/15/17 08:59 08/03/17 08:54 Metoprolol Tartrate (Lopressor) 100 mg Q12HR ORAL 07/15/17 21:00 08/10/17 20:59 08/03/17 08:54 Pantoprazole (Protonix) 40 mg BID ORAL 07/27/17 18:00 08/26/17 17:59 08/03/17 08:53 Temazepam (Restoril) 15 mg HSPRN PRN ORAL Insomnia 07/29/17 21:00 08/05/17 20:59 08/02/17 21:24 Allergies: Coded Allergies: IODINE AND IODIDE CONTAINING PRODUC (Verified Allergy, Mild, itching and pruritis, 06/25/17) Uncoded Allergies: CONTRAST/DYE (Allergy, Intermediate, PRURITIS AND ITCHING, 06/25/17) Subjective awake,alert, responsive , NAD."wants to go home" Objective Last Vital Signs Date Time Temp Pulse Resp B/P (MAP) Pulse Ox O2 Delivery O2 Flow Rate FiO2 08/03/17 09:20 95 Nasal Cannula 2.0 08/03/17 08:54 68 137/68 08/03/17 08:53 98.4 08/03/17 08:00 21 Intake and Output 08/02/17 08/03/17 19:00 07:00 Intake Total 1000 ml 600 ml Balance 1000 ml 600 ml Intake Oral 1000 ml 600 ml # Voids 1 Objective General: No acute distress, awake and alert HEENT: NCAT, sclera anicteric, PERRL, EOMI. Neck: Supple, no significant jugular venous distention, Lungs: Fair inspiratory effort, no Wheeze or Rales. Heart: Regular rate and rhythm, normal S1/S2, no murmur Abdomen: soft, nontender, nondistended. Normoactive bowel sounds. Obesity Extremities: No Cyanosis , clubbing, or edema. Left UE AVF. Neuro: A&O x 3, Able to move all extremities Skin: warm, no rashes Assessment/Plan Assessment/Plan Right upper lobe cavitary mass Necrotizing PNA with cavitating lesion RUL r/o TB Acute hypoxemic RF requiring BiPAP -resolved Pleuritic chest pain likely due to necrotizing PNA . Elevated troponin Systolic CHF ( recent negative reversible perfusion defect.) cardiomyopathy pulmonary edema Asthma. End-stage renal disease, on hemodialysis. Hypertensive urgency . Anemia of chronic disease. History of intracardiac defibrillator placement. Prior history of cerebrovascular accident. ESRD on HD thrombocytopenia transaminitis hepatitis C liver cirrhosis cholelithiasis Plan: Monitor Labs and culture Full code F/U with ID recommendations - Cont oral Clindamycin ( till resolution/ stabilization of abscess) ( abx d # 54 ) - Continue Ethambutol and Levaquin, Amikacin ( empiric TB AB Rx d# 44 TB control they want to cont TB Meds regardless of AFB Cultures Neg x 3 (called : 07/22 ) ) -At this point patient is cleared for discharge to SNF- patient with neg AFB cultures x3, more than 13 days TB treatment, off airborne isolation DC planning, waiting placement On Dilaudid Chaitanya Arenas MD Aug 03, 2017 10:37
[2017-08-03] MEDS: ALPRAZolam 0.5mg tab ORAL PRN ×2 (11:08→17:33)
[2017-08-03 12:00] VITALS: BP 142/68
--- NOTE | 2017-08-03 12:37 | Nephrology Progress Note ---
Assessment/Plan Problem List: (1) ESRD (end stage renal disease) on dialysis (2) Shortness of breath (3) Anemia Assessment Anemia- ESRD , missed HD on admission , admitted with high K and pulmonary edema Acute respiratory distress due to volume overload elevated troponin r/o ACS h/o COPD ? exacerbation HTN urgency Cardiomyopathy L AICD anemia of chronic kidney disease Hx of CVA Plan Plan: HD last 08/01 next 08/04 Kayexelate PRN Max UF Transfused Phos binders BP meds adjustment Optimize cardiac status per orders Subjective ROS Limited/Unobtainable: No Objective Objective Last 24 Hour Vital Signs Date Time Temp Pulse Resp B/P (MAP) Pulse Ox O2 Delivery O2 Flow Rate FiO2 08/03/17 12:00 98.3 64 21 142/68 97 Room Air 98.3 08/03/17 09:52 98.4 08/03/17 09:20 95 Nasal Cannula 2.0 28 08/03/17 09:20 Nasal Cannula 2.0 08/03/17 08:54 68 137/68 08/03/17 08:54 137/68 08/03/17 08:53 98.4 08/03/17 08:00 98.4 68 21 137/68 99 Room Air 98.4 08/03/17 05:50 73 128/76 08/03/17 04:00 98.7 73 22 128/76 95 98.7 08/03/17 00:00 99.5 82 22 133/84 97 99.5 08/02/17 21:25 85 140/87 08/02/17 21:25 85 140/87 08/02/17 21:24 140/87 08/02/17 20:00 98.5 85 22 140/87 98 98.5 08/02/17 18:58 98.0 08/02/17 16:00 98.0 80 18 120/71 92 Room Air 98.0 08/02/17 15:27 97.0 08/02/17 14:00 81 115/65 08/02/17 13:27 Nasal Cannula 2.0 28 08/02/17 13:27 96 Nasal Cannula 2.0 28 Intake and Output 08/02/17 08/03/17 19:00 07:00 Intake Total 1000 ml 600 ml Balance 1000 ml 600 ml Intake Oral 1000 ml 600 ml # Voids 1 Height (Feet): 5 Height (Inches): 5.00 Weight (Pounds): 197 General Appearance: no apparent distress Objective no change LIAM MONTELONGO Aug 03, 2017 12:37
[2017-08-03] MEDS ORDERED: Amikacin Rx to dose MISC PRN (15:45)
[2017-08-03 16:00] VITALS: BP 149/86
--- NOTE | 2017-08-03 17:21 | Pulmonology Progress Note ---
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 on anti TB meds wtih IV Amikacin, ethambutol and Levofloxacin continue current meds Subjective ROS Limited/Unobtainable: No Allergies: Coded Allergies: IODINE AND IODIDE CONTAINING PRODUC (Verified Allergy, Mild, itching and pruritis, 06/25/17) Uncoded Allergies: CONTRAST/DYE (Allergy, Intermediate, PRURITIS AND ITCHING, 06/25/17) Objective Last 24 Hour Vital Signs Date Time Temp Pulse Resp B/P (MAP) Pulse Ox O2 Delivery O2 Flow Rate FiO2 08/03/17 16:30 97.1 08/03/17 16:00 97.1 66 19 149/86 96 Nasal Cannula 2.0 97.1 08/03/17 15:31 98.3 08/03/17 15:31 64 142/68 08/03/17 12:00 98.3 64 21 142/68 97 Room Air 98.3 08/03/17 09:20 95 Nasal Cannula 2.0 28 08/03/17 09:20 Nasal Cannula 2.0 28 08/03/17 08:54 68 137/68 08/03/17 08:54 137/68 08/03/17 08:53 98.4 08/03/17 08:00 98.4 68 21 137/68 99 Room Air 98.4 08/03/17 05:50 73 128/76 08/03/17 04:00 98.7 73 22 128/76 95 98.7 08/03/17 00:00 99.5 82 22 133/84 97 99.5 08/02/17 21:25 85 140/87 08/02/17 21:25 85 140/87 08/02/17 21:24 140/87 08/02/17 20:00 98.5 85 22 140/87 98 98.5 08/02/17 18:58 98.0 Intake and Output 08/02/17 08/03/17 19:00 07:00 Intake Total 1000 ml 600 ml Balance 1000 ml 600 ml Intake Oral 1000 ml 600 ml # Voids 1 Objective General Appearance: WD/WN HEENT: normocephalic, atraumatic, anicteric Respiratory/Chest: loud rhonchi Cardiovascular: normal peripheral pulses, normal rate, regular rhythm Abdomen: normal bowel sounds, soft, non tender, no organomegaly Genitourinary: normal external genitalia Extremities: no cyanosis Skin: no rash, no lesions 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, no motor/sensory deficits Lymphatic: no neck adenopathy, no groin adenopathy Current Medications Medications (Trade) Dose Ordered Sig/Jose Route PRN Reason Start Time Stop Time Status Last Admin Dose Admin Alprazolam (Xanax) 2 mg BID PRN ORAL For Anxiety 08/02/17 14:15 08/07/17 01:29 08/03/17 11:08 Amikacin Protocol (Amikacin pharmacy to dose) 1 ea DAILY PRN MISC Per rx protocol 08/03/17 15:45 08/17/17 08:59 Apixaban (Eliquis) 2.5 mg EVERY 12 HOURS ORAL 07/31/17 21:00 08/30/17 20:59 08/03/17 08:53 Carisoprodol (Soma) 350 mg Q6H PRN ORAL Muscle Spasm 07/18/17 15:30 08/17/17 15:29 08/03/17 05:02 Clindamycin HCl (Cleocin) 450 mg EVERY 6 HOURS ORAL 07/24/17 12:00 09/04/17 11:59 08/03/17 11:08 Dextrose (Dextrose 50%) 25 ml STAT PRN IV HYPOGLYCEMIA 07/16/17 08:30 08/08/17 08:29 Diltiazem HCl (Cardizem) 60 mg Q8HR ORAL 07/22/17 22:00 08/21/17 21:59 08/03/17 15:31 Ethambutol HCl (Myambutol) 1,000 mg 3XW@2100 ORAL 07/23/17 21:00 08/22/17 20:59 08/01/17 20:34 Hydromorphone HCl (Dilaudid) 2 mg Q4H PRN ORAL For Pain 08/01/17 19:00 08/08/17 18:59 08/03/17 15:31 Levofloxacin (Levaquin) 750 mg EVERY OTHER DAY@2000 ORAL 08/01/17 20:00 08/08/17 19:59 08/01/17 20:34 Lisinopril (Prinivil) 20 mg Q12HR ORAL 07/16/17 09:00 08/15/17 08:59 08/03/17 08:54 Metoprolol Tartrate (Lopressor) 100 mg Q12HR ORAL 07/15/17 21:00 08/10/17 20:59 08/03/17 08:54 Pantoprazole (Protonix) 40 mg BID ORAL 07/27/17 18:00 08/26/17 17:59 08/03/17 08:53 Temazepam (Restoril) 15 mg HSPRN PRN ORAL Insomnia 07/29/17 21:00 08/05/17 20:59 08/02/17 21:24 Christine Morgan MD Aug 03, 2017 17:21
[2017-08-03 20:00] VITALS: BP 134/82
--- NOTE | 2017-08-03 23:13 | General Progress Note ---
Assessment/Plan Assessment/Plan #. Left leg dvt --> acute onset, will need to review final duplex results --> on apixaban daily x 3 months, low h/h will need to monitor closely --> okay to change to different anticoagulant if renal clearance an issue --> If h/h downtrends below 7.5, consider ivc filter placement. --> Hemoglobin currently >7.5 #. Anemia secondary to chronic disease. --> Hemoglobin levels have been stable. No blood transfusion required at this time. --> S/P abd CAT scan revealing evidence of hepatic cirrhosis. --> Continue to closely monitor and trend cbc daily. --> Anemia workup completed and reviewed. Iron 42, TIBC 180, Ferritin 593, B12 876. --> Ferritin is >500, hgb goal is >7 --> Anemia w/u has been reviewed --> ++Occult blood. Consider GI Services and Recs. #. Thrombocytopenia. --> Hepatitis C ab ++, PCR - --> Monitor platelet level. Transfuse if platelet count <20k --> Levels remain low. Monitor and trend cbc daily. # Hepatosplenomegaly. Ascites. There is also evidence of generalized anasarca, with pleural fluid and generalized subcutaneous edema --> Abd pain improved on pain management --> Refer to surgery note. #. Anemia of kidney disease --> HD as needed per nephrology team --> Monitor closely. --> Does not require iron at this time #. Generalized body ache related to fluid overload. #. End-stage renal disease, on hemodialysis as needed --> On hemodialysis #. Respiratory failure due to CHF and pneumonia. --> Providencia and pseudomonas. --> On vancomycin and ethambutol per ID. --> Chest pain improved at this time, on pain management. Chest xray on 07/28 showing that cavitary lesion improving. #. Shortness of breath. Due to underlying pneumonia. #. Atrial flutter with rapid ventricular response. On metoprolol and diltiazem. #. Conjunctivitis. Begin tobramycin. On anti TB treatment. On Amikacin and ethambutol. Continue telemetry. Subjective Date patient seen: Aug 02, 2017 Constitutional: Denies: no symptoms, chills, diaphoresis, fever, malaise, weakness, other HEENT: Denies: no symptoms, eye pain, blurred vision, tearing, double vision, ear pain, ear discharge, nose pain, nose congestion, throat pain, throat swelling, mouth pain, mouth swelling, other Cardiovascular: Denies: no symptoms, chest pain, edema, irregular heart rate, lightheadedness, palpitations, syncope, other Respiratory: Denies: no symptoms, cough, orthopnea, shortness of breath, SOB with excertion, SOB at rest, sputum, stridor, wheezing, other Gastrointestinal/Abdominal: Denies: no symptoms, abdomen distended, abdominal pain, black stools, tarry stools, blood in stool, constipated, diarrhea, difficulty swallowing, nausea, poor appetite, poor fluid intake, rectal bleeding , vomiting, other Genitourinary: Denies: no symptoms, burning, discharge, frequency, flank pain, hematuria, incontinence, pain, urgency, other Neurologic/Psychiatric: Denies: no symptoms, anxiety, depressed, emotional problems, headache, numbness, paresthesia, pre-existing deficit, seizure, tingling, tremors, weakness, other Allergies: Coded Allergies: IODINE AND IODIDE CONTAINING PRODUC (Verified Allergy, Mild, itching and pruritis, 06/25/17) Uncoded Allergies: CONTRAST/DYE (Allergy, Intermediate, PRURITIS AND ITCHING, 06/25/17) Subjective On pain control. No new events. No f/c. Objective Last 24 Hour Vital Signs Date Time Temp Pulse Resp B/P (MAP) Pulse Ox O2 Delivery O2 Flow Rate FiO2 08/03/17 21:56 95 Room Air 21 08/03/17 21:56 Room Air 08/03/17 21:14 67 134/82 08/03/17 21:13 67 134/82 08/03/17 21:13 134/82 08/03/17 20:00 98.8 67 22 134/82 100 98.8 08/03/17 16:30 97.1 08/03/17 16:00 97.1 66 19 149/86 96 Nasal Cannula 2.0 97.1 08/03/17 15:31 98.3 08/03/17 15:31 64 142/68 08/03/17 12:00 98.3 64 21 142/68 97 Room Air 98.3 08/03/17 09:20 95 Nasal Cannula 2.0 28 08/03/17 09:20 Nasal Cannula 2.0 28 08/03/17 08:54 68 137/68 08/03/17 08:54 137/68 08/03/17 08:53 98.4 08/03/17 08:00 98.4 68 21 137/68 99 Room Air 98.4 08/03/17 05:50 73 128/76 08/03/17 04:00 98.7 73 22 128/76 95 98.7 08/03/17 00:00 99.5 82 22 133/84 97 99.5 Intake and Output 08/02/17 08/03/17 19:00 07:00 Intake Total 1000 ml 600 ml Balance 1000 ml 600 ml Intake Oral 1000 ml 600 ml # Voids 1 Height (Feet): 5 Height (Inches): 5.00 Weight (Pounds): 197 General Appearance: WD/WN Cardiovascular: normal rate, regular rhythm Respiratory/Chest: decreased breath sounds Abdomen: non tender, soft Irving Parker MD Aug 03, 2017 23:13
[2017-08-04] VITALS (7 sets, daily range): BP systolic 125–152; BP diastolic 69–94
[2017-08-04] MEDS: HYDROmorphone 2mg tab ORAL PRN ×4 (02:14→20:05)
[2017-08-04] MEDS: dilTIAZem HCl 60mg tab ORAL SCH ×3 (05:35→22:00)
[2017-08-04] MEDS: Clindamycin 150mg cap ORAL SCH ×3 (05:39→17:50)
[2017-08-04] MEDS: Eliquis 2.5mg tablet ORAL SCH ×3 (08:24→20:04)
[2017-08-04] MEDS: ALPRAZolam 0.5mg tab ORAL PRN ×2 (08:52→21:15)
[2017-08-04] MEDS: Lisinopril 20mg tab ORAL SCH (08:54)
--- NOTE | 2017-08-04 09:03 | Procedure Note ---
DATE OF PROCEDURE: 07/31/2017 PROCEDURE: Upper gastrointestinal endoscopy as well as colonoscopy. SURGEON: Won Goodwin M.D. ANESTHESIA: Please see the separate anesthesiologist notes for details. PRE-ENDOSCOPIC DIAGNOSIS: Heme-positive stools. POST-ENDOSCOPIC DIAGNOSES: 1. Portal hypertensive gastropathy. 2. Otherwise normal upper endoscopy and lower colonoscopy. PROCEDURE: The procedure, its risks, indications, alternatives, and possible complications were explained and informed consent was obtained. The endoscope was introduced through the oropharynx and advanced to the duodenum. It was gradually withdrawn and the mucosa examined carefully. The colonoscope was introduced in the rectum and advanced to the terminal ileum. The colonoscope was then gradually withdrawn and the mucosa examined carefully. Findings were as noted above. The colonoscope was removed and the patient was sent to recovery in good condition. COMPLICATIONS: None. RECOMMENDATIONS: 1. Resume oral diet. 2. Monitor CBC. Won Goodwin M.D. DR: HADLEY JOB#: [id number] CC:
[2017-08-04 09:14] LABS: HEMATOCRIT 24.3 % (42.0-52.0); HEMOGLOBIN 7.9 G/DL (14.2-18.0); MEAN CORPUSCULAR VOLUME 97 FL (80-99); PLATELET COUNT 97 K/UL (150-450); RED CELL DISTRIBUTION WIDTH 13.3 % (11.6-14.8); WHITE BLOOD COUNT 5.1 K/UL (4.8-10.8)
[2017-08-04 10:15] LABS: ALANINE AMINOTRANSFERASE 8 U/L (12-78); ALBUMIN 2.6 G/DL (3.4-5.0); ALBUMIN/GLOBULIN RATIO 0.5 (1.0-2.7); ALKALINE PHOSPHATASE 164 U/L (46-116); ANION GAP 10 mmol/L (5-15); ASPARTATE AMINO TRANSFERASE 21 U/L (15-37); BILIRUBIN,TOTAL 0.9 MG/DL (0.2-1.0); BLOOD UREA NITROGEN 59 mg/dL (7-18); CALCIUM 8.6 MG/DL (8.5-10.1); CARBON DIOXIDE 28 MMOL/L (21-32); CHLORIDE 97 MMOL/L (98-107); CREATININE 12.6 MG/DL (0.55-1.30); POTASSIUM 4.8 MMOL/L (3.5-5.1); SODIUM 135 MMOL/L (136-145)
--- NOTE | 2017-08-04 10:59 | General Progress Note ---
Assessment/Plan Assessment/Plan Assessment - gallstones - abnormal LFT / cirrhosis - Periodic N/V with abnormal GB ultrasound, ? possibly biliary colic - patient declined HIDA - Anemia, multifactorial - EGD/Colon negative x for portal HTN gastropathy - OB (+) Stool - due to portal HTN gastropathy - ESRD/HD - DM - HTN - COPD - Cavitary lung disease - Thrombocytopenia - cirrhotic appearing liver on CT - Hepatitis C Ab (+)/ PCR (-) - Poor prognosis Recommendations - follow symptoms and exam - monitor LFT - avoid hepatotoxic meds - BID PPI - monitor CBC - abx per ID Subjective Allergies: Coded Allergies: IODINE AND IODIDE CONTAINING PRODUC (Verified Allergy, Mild, itching and pruritis, 06/25/17) Uncoded Allergies: CONTRAST/DYE (Allergy, Intermediate, PRURITIS AND ITCHING, 06/25/17) Subjective Feels OK tolerating PO no abdominal pain Objective Last 24 Hour Vital Signs Date Time Temp Pulse Resp B/P (MAP) Pulse Ox O2 Delivery O2 Flow Rate FiO2 08/04/17 08:54 79 125/71 08/04/17 08:54 125/71 08/04/17 08:00 98.0 68 20 150/94 100 Room Air 98.0 08/04/17 05:35 79 125/71 08/04/17 04:00 98.4 73 20 125/71 92 Room Air 98.4 08/04/17 00:00 98.3 70 22 141/83 98 98.3 08/03/17 21:56 95 Room Air 21 08/03/17 21:56 Room Air 08/03/17 21:14 67 134/82 08/03/17 21:13 67 134/82 08/03/17 21:13 134/82 08/03/17 20:00 98.8 67 22 134/82 100 98.8 08/03/17 16:30 97.1 08/03/17 16:00 97.1 66 19 149/86 96 Nasal Cannula 2.0 97.1 08/03/17 15:31 98.3 08/03/17 15:31 64 142/68 08/03/17 12:00 98.3 64 21 142/68 97 Room Air 98.3 Intake and Output 08/03/17 08/04/17 19:00 07:00 Intake Total 720 ml 590 ml Balance 720 ml 590 ml Intake Oral 720 ml 590 ml Laboratory Tests 08/04/17 07:40: White Blood Count 5.1, Red Blood Count 2.50L, Hemoglobin 7.9L, Hematocrit 24.3L , Mean Corpuscular Volume 97, Mean Corpuscular Hemoglobin 31.5H, Mean Corpuscular Hemoglobin Concent 32.3, Red Cell Distribution Width 13.3, Platelet Count 97L, Mean Platelet Volume 6.8, Neutrophils (%) (Auto) , Lymphocytes (%) ( Auto) , Monocytes (%) (Auto) , Eosinophils (%) (Auto) , Basophils (%) (Auto) , Differential Total Cells Counted 100, Neutrophils % (Manual) 40L, Lymphocytes % (Manual) 28, Monocytes % (Manual) 8, Eosinophils % (Manual) 24H, Basophils % ( Manual) 0, Band Neutrophils 0, Platelet Estimate DecreasedL, Platelet Morphology Normal, Hypochromasia 1+, Sodium Level 135L, Potassium Level 4.8, Chloride Level 97L, Carbon Dioxide Level 28, Anion Gap 10, Blood Urea Nitrogen 59H, Creatinine 12.6H, Estimat Glomerular Filtration Rate 5.0, Glucose Level 101 , Calcium Level 8.6, Phosphorus Level 7.0H, Magnesium Level 2.2, Total Bilirubin 0.9, Aspartate Amino Transf (AST/SGOT) 21, Alanine Aminotransferase ( ALT/SGPT) 8L, Alkaline Phosphatase 164H, Total Protein 7.4, Albumin 2.6L, Globulin 4.8, Albumin/Globulin Ratio 0.5L 08/04/17 07:45: Pro-B-Type Natriuretic Peptide 31691D Height (Feet): 5 Height (Inches): 5.00 Weight (Pounds): 206 Objective WDWN AA Man NCAT supple CTA RRR Soft mildly distended, (+) trunk edema (++) leg edema PERCY JOYNER Aug 04, 2017 10:59
--- NOTE | 2017-08-04 11:29 | Internal Med Progress Note ---
Subjective Date of Service: Aug 04, 2017 Physician Name Pires,Zoey Attending Physician Chaitanya Weinstein MD Current Medications Medications (Trade) Dose Ordered Sig/Jose Route PRN Reason Start Time Stop Time Status Last Admin Dose Admin Alprazolam (Xanax) 2 mg BID PRN ORAL For Anxiety 08/02/17 14:15 08/07/17 01:29 08/04/17 08:52 Amikacin Protocol (Amikacin pharmacy to dose) 1 ea DAILY PRN MISC Per rx protocol 08/03/17 15:45 08/17/17 08:59 Apixaban (Eliquis) 2.5 mg EVERY 12 HOURS ORAL 07/31/17 21:00 08/30/17 20:59 08/03/17 21:12 Carisoprodol (Soma) 350 mg Q6H PRN ORAL Muscle Spasm 07/18/17 15:30 08/17/17 15:29 08/04/17 04:29 Clindamycin HCl (Cleocin) 450 mg EVERY 6 HOURS ORAL 07/24/17 12:00 09/04/17 11:59 08/04/17 05:39 Dextrose (Dextrose 50%) 25 ml STAT PRN IV HYPOGLYCEMIA 07/16/17 08:30 08/08/17 08:29 Diltiazem HCl (Cardizem) 60 mg Q8HR ORAL 07/22/17 22:00 08/21/17 21:59 08/03/17 21:14 Ethambutol HCl (Myambutol) 1,000 mg 3XW@2099 ORAL 07/23/17 21:00 08/22/17 20:59 08/01/17 20:34 Hydromorphone HCl (Dilaudid) 2 mg Q4H PRN ORAL For Pain 08/01/17 19:00 08/08/17 18:59 08/04/17 08:24 Levofloxacin (Levaquin) 750 mg EVERY OTHER DAY@1999 ORAL 08/01/17 20:00 08/08/17 19:59 08/03/17 21:13 Lisinopril (Prinivil) 20 mg Q12HR ORAL 07/16/17 09:00 08/15/17 08:59 08/03/17 21:13 Metoprolol Tartrate (Lopressor) 100 mg Q12HR ORAL 07/15/17 21:00 08/10/17 20:59 08/03/17 21:13 Pantoprazole (Protonix) 40 mg BID ORAL 07/27/17 18:00 08/26/17 17:59 08/04/17 08:52 Temazepam (Restoril) 15 mg HSPRN PRN ORAL Insomnia 07/29/17 21:00 08/05/17 20:59 08/03/17 23:15 Allergies: Coded Allergies: IODINE AND IODIDE CONTAINING PRODUC (Verified Allergy, Mild, itching and pruritis, 06/25/17) Uncoded Allergies: CONTRAST/DYE (Allergy, Intermediate, PRURITIS AND ITCHING, 06/25/17) ROS Limited/Unobtainable: No Constitutional: Reports: no symptoms HEENT: Reports: no symptoms Cardiovascular: Reports: no symptoms Respiratory: Reports: no symptoms Gastrointestinal/Abdominal: Reports: no symptoms Genitourinary: Reports: no symptoms Neurologic/Psychiatric: Reports: no symptoms Subjective 57 YO M admitted with chest pain and shortness of breath. Now pneumonia and candelaria heart failure. Back on nasal canula. Cover for Int Med-Dr Weinstein. Now atrial flutter Objective Last Vital Signs Date Time Temp Pulse Resp B/P (MAP) Pulse Ox O2 Delivery O2 Flow Rate FiO2 08/04/17 08:54 79 125/71 08/04/17 08:00 98.0 20 100 Room Air 98.0 08/03/17 21:56 21 08/03/17 16:00 2.0 Laboratory Tests Test 08/04/17 07:40 08/04/17 07:45 White Blood Count 5.1 K/UL (4.8-10.8) Red Blood Count 2.50 M/UL (4.70-6.10) L Hemoglobin 7.9 G/DL (14.2-18.0) L Hematocrit 24.3 % (42.0-52.0) L Mean Corpuscular Volume 97 FL (80-99) Mean Corpuscular Hemoglobin 31.5 PG (27.0-31.0) H Mean Corpuscular Hemoglobin Concent 32.3 G/DL (32.0-36.0) Red Cell Distribution Width 13.3 % (11.6-14.8) Platelet Count 97 K/UL (150-450) L Mean Platelet Volume 6.8 FL (6.5-10.1) Neutrophils (%) (Auto) % (45.0-75.0) Lymphocytes (%) (Auto) % (20.0-45.0) Monocytes (%) (Auto) % (1.0-10.0) Eosinophils (%) (Auto) % (0.0-3.0) Basophils (%) (Auto) % (0.0-2.0) Differential Total Cells Counted 100 Neutrophils % (Manual) 40 % (45-75) L Lymphocytes % (Manual) 28 % (20-45) Monocytes % (Manual) 8 % (1-10) Eosinophils % (Manual) 24 % (0-3) H Basophils % (Manual) 0 % (0-2) Band Neutrophils 0 % (0-8) Platelet Estimate Decreased L Platelet Morphology Normal Hypochromasia 1+ Sodium Level 135 MMOL/L (136-145) L Potassium Level 4.8 MMOL/L (3.5-5.1) Chloride Level 97 MMOL/L (98-107) L Carbon Dioxide Level 28 MMOL/L (21-32) Anion Gap 10 mmol/L (5-15) Blood Urea Nitrogen 59 mg/dL (7-18) H Creatinine 12.6 MG/DL (0.55-1.30) H Estimat Glomerular Filtration Rate 5.0 mL/min (>60) Glucose Level 101 MG/DL (74-106) Calcium Level 8.6 MG/DL (8.5-10.1) Phosphorus Level 7.0 MG/DL (2.5-4.9) H Magnesium Level 2.2 MG/DL (1.8-2.4) Total Bilirubin 0.9 MG/DL (0.2-1.0) Aspartate Amino Transf (AST/SGOT) 21 U/L (15-37) Alanine Aminotransferase (ALT/SGPT) 8 U/L (12-78) L Alkaline Phosphatase 164 U/L (46-116) H Total Protein 7.4 G/DL (6.4-8.2) Albumin 2.6 G/DL (3.4-5.0) L Globulin 4.8 g/dL Albumin/Globulin Ratio 0.5 (1.0-2.7) L Pro-B-Type Natriuretic Peptide 76143 pg/mL (0-125) H Intake and Output 08/03/17 08/04/17 19:00 07:00 Intake Total 720 ml 590 ml Balance 720 ml 590 ml Intake Oral 720 ml 590 ml Objective General Appearance: WD/WN, alert, moderate distress EENT: PERRL/EOMI, normal ENT inspection Neck: non-tender, normal alignment, supple, normal inspection Cardiovascular: Tachycardia; normal peripheral pulses, normal rate, regular rhythm, no gallop/murmur, no JVD Respiratory/Chest: Nasal canula; respiratory distress, crackles/rales, rhonchi - bilaterally, expiratory wheezing Abdomen: normal bowel sounds, non tender, soft, no organomegaly, no mass Extremities: normal range of motion 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 (2) Respiratory failure Assessment & Plan: CHF and Pneumonia. Currently on nasal canula. See pulmonay note. (3) Pleuritic chest pain (4) Hemoptysis Assessment & Plan: Due to pneumonia (5) Pneumonia Assessment & Plan: Providencia and pseudamonas. RUL. AFB cultures negative- see ID consult. Continue ethambutol, amikacin, levaquin and clindamycin per ID (6) Shortness of breath (7) ESRD (end stage renal disease) on dialysis Assessment & Plan: See nephrology note. Next Hemodialysis 07/30/17 per nephrology (8) Hyperkalemia Assessment & Plan: Due to renal failure. Hemodialysis 06/13/17 per nephrology (9) COPD (chronic obstructive pulmonary disease) (10) HTN (hypertension) Assessment & Plan: Continue coreg and lisinopril. (11) CHF (congestive heart failure) (12) Elevated troponin Assessment & Plan: ?due to renal failure? See cardiology note. (13) Intractable abdominal pain Assessment & Plan: See surgery note (14) Conjunctivitis Assessment & Plan: start tobramycin (15) Diarrhea Assessment & Plan: C. Diff; resolved Status: stable Assessment/Plan Discharge planning - half-way fac vs Board and care ZOEY PIRES Aug 04, 2017 11:29
--- NOTE | 2017-08-04 12:55 | Pulmonology Progress Note ---
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 prbc prn on anti TB meds wtih IV Amikacin, ethambutol and Levofloxacin continue current meds Subjective ROS Limited/Unobtainable: No Interval Events: improving, no new complains Allergies: Coded Allergies: IODINE AND IODIDE CONTAINING PRODUC (Verified Allergy, Mild, itching and pruritis, 06/25/17) Uncoded Allergies: CONTRAST/DYE (Allergy, Intermediate, PRURITIS AND ITCHING, 06/25/17) Objective Last 24 Hour Vital Signs Date Time Temp Pulse Resp B/P (MAP) Pulse Ox O2 Delivery O2 Flow Rate FiO2 08/04/17 12:00 98.1 68 20 143/86 98 Room Air 98.1 08/04/17 08:54 79 125/71 08/04/17 08:54 125/71 08/04/17 08:00 98.0 68 20 150/94 100 Room Air 98.0 08/04/17 05:35 79 125/71 08/04/17 04:00 98.4 73 20 125/71 92 Room Air 98.4 08/04/17 00:00 98.3 70 22 141/83 98 98.3 08/03/17 21:56 95 Room Air 21 08/03/17 21:56 Room Air 08/03/17 21:14 67 134/82 08/03/17 21:13 67 134/82 08/03/17 21:13 134/82 08/03/17 20:00 98.8 67 22 134/82 100 98.8 08/03/17 16:30 97.1 08/03/17 16:00 97.1 66 19 149/86 96 Nasal Cannula 2.0 97.1 08/03/17 15:31 98.3 08/03/17 15:31 64 142/68 Intake and Output 08/03/17 08/04/17 19:00 07:00 Intake Total 720 ml 590 ml Balance 720 ml 590 ml Intake Oral 720 ml 590 ml Objective General Appearance: WD/WN HEENT: normocephalic, atraumatic, anicteric Respiratory/Chest: loud rhonchi Cardiovascular: normal peripheral pulses, normal rate, regular rhythm Abdomen: normal bowel sounds, soft, non tender, no organomegaly Genitourinary: normal external genitalia Extremities: no cyanosis Skin: no rash, no lesions 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, no motor/sensory deficits Lymphatic: no neck adenopathy, no groin adenopathy Laboratory Tests 08/04/17 07:40: White Blood Count 5.1, Red Blood Count 2.50L, Hemoglobin 7.9L, Hematocrit 24.3L , Mean Corpuscular Volume 97, Mean Corpuscular Hemoglobin 31.5H, Mean Corpuscular Hemoglobin Concent 32.3, Red Cell Distribution Width 13.3, Platelet Count 97L, Mean Platelet Volume 6.8, Neutrophils (%) (Auto) , Lymphocytes (%) ( Auto) , Monocytes (%) (Auto) , Eosinophils (%) (Auto) , Basophils (%) (Auto) , Differential Total Cells Counted 100, Neutrophils % (Manual) 40L, Lymphocytes % (Manual) 28, Monocytes % (Manual) 8, Eosinophils % (Manual) 24H, Basophils % ( Manual) 0, Band Neutrophils 0, Platelet Estimate DecreasedL, Platelet Morphology Normal, Hypochromasia 1+, Sodium Level 135L, Potassium Level 4.8, Chloride Level 97L, Carbon Dioxide Level 28, Anion Gap 10, Blood Urea Nitrogen 59H, Creatinine 12.6H, Estimat Glomerular Filtration Rate 5.0, Glucose Level 101 , Calcium Level 8.6, Phosphorus Level 7.0H, Magnesium Level 2.2, Total Bilirubin 0.9, Aspartate Amino Transf (AST/SGOT) 21, Alanine Aminotransferase ( ALT/SGPT) 8L, Alkaline Phosphatase 164H, Total Protein 7.4, Albumin 2.6L, Globulin 4.8, Albumin/Globulin Ratio 0.5L 08/04/17 07:45: Pro-B-Type Natriuretic Peptide 93669A Current Medications Medications (Trade) Dose Ordered Sig/Jose Route PRN Reason Start Time Stop Time Status Last Admin Dose Admin Alprazolam (Xanax) 2 mg BID PRN ORAL For Anxiety 08/02/17 14:15 08/07/17 01:29 08/04/17 08:52 Amikacin Protocol (Amikacin pharmacy to dose) 1 ea DAILY PRN MISC Per rx protocol 08/03/17 15:45 08/17/17 08:59 Apixaban (Eliquis) 2.5 mg EVERY 12 HOURS ORAL 07/31/17 21:00 08/30/17 20:59 08/03/17 21:12 Carisoprodol (Soma) 350 mg Q6H PRN ORAL Muscle Spasm 07/18/17 15:30 08/17/17 15:29 08/04/17 04:29 Clindamycin HCl (Cleocin) 450 mg EVERY 6 HOURS ORAL 07/24/17 12:00 09/04/17 11:59 08/04/17 12:11 Dextrose (Dextrose 50%) 25 ml STAT PRN IV HYPOGLYCEMIA 07/16/17 08:30 08/08/17 08:29 Diltiazem HCl (Cardizem) 60 mg Q8HR ORAL 07/22/17 22:00 08/21/17 21:59 08/03/17 21:14 Ethambutol HCl (Myambutol) 1,000 mg 3XW@2100 ORAL 07/23/17 21:00 08/22/17 20:59 08/01/17 20:34 Hydromorphone HCl (Dilaudid) 2 mg Q4H PRN ORAL For Pain 08/01/17 19:00 08/08/17 18:59 08/04/17 08:24 Levofloxacin (Levaquin) 750 mg EVERY OTHER DAY@2000 ORAL 08/01/17 20:00 08/08/17 19:59 08/03/17 21:13 Lisinopril (Prinivil) 20 mg Q12HR ORAL 07/16/17 09:00 08/15/17 08:59 08/03/17 21:13 Metoprolol Tartrate (Lopressor) 100 mg Q12HR ORAL 07/15/17 21:00 08/10/17 20:59 08/03/17 21:13 Pantoprazole (Protonix) 40 mg BID ORAL 07/27/17 18:00 08/26/17 17:59 08/04/17 08:52 Temazepam (Restoril) 15 mg HSPRN PRN ORAL Insomnia 07/29/17 21:00 08/05/17 20:59 08/03/17 23:15 Christine Morgan MD Aug 04, 2017 12:55
--- NOTE | 2017-08-04 13:04 | Nephrology Progress Note ---
Assessment/Plan Problem List: (1) ESRD (end stage renal disease) on dialysis (2) Shortness of breath (3) Anemia Assessment Anemia- ESRD , missed HD on admission , admitted with high K and pulmonary edema Acute respiratory distress due to volume overload elevated troponin r/o ACS h/o COPD ? exacerbation HTN urgency Cardiomyopathy L AICD anemia of chronic kidney disease Hx of CVA Plan Plan: Phos binders HD last 08/01 next 08/04 Kayexelate PRN Max UF Transfused Phos binders BP meds adjustment Optimize cardiac status per orders Subjective ROS Limited/Unobtainable: No Constitutional: Reports: malaise Objective Objective Last 24 Hour Vital Signs Date Time Temp Pulse Resp B/P (MAP) Pulse Ox O2 Delivery O2 Flow Rate FiO2 08/04/17 12:00 98.1 68 20 143/86 98 Room Air 98.1 08/04/17 08:54 79 125/71 08/04/17 08:54 125/71 08/04/17 08:00 98.0 68 20 150/94 100 Room Air 98.0 08/04/17 05:35 79 125/71 08/04/17 04:00 98.4 73 20 125/71 92 Room Air 98.4 08/04/17 00:00 98.3 70 22 141/83 98 98.3 08/03/17 21:56 95 Room Air 21 08/03/17 21:56 Room Air 08/03/17 21:14 67 134/82 08/03/17 21:13 67 134/82 08/03/17 21:13 134/82 08/03/17 20:00 98.8 67 22 134/82 100 98.8 08/03/17 16:30 97.1 08/03/17 16:00 97.1 66 19 149/86 96 Nasal Cannula 2.0 97.1 08/03/17 15:31 98.3 08/03/17 15:31 64 142/68 Intake and Output 08/03/17 08/04/17 19:00 07:00 Intake Total 720 ml 590 ml Balance 720 ml 590 ml Intake Oral 720 ml 590 ml Laboratory Tests 08/04/17 07:40: White Blood Count 5.1, Red Blood Count 2.50L, Hemoglobin 7.9L, Hematocrit 24.3L , Mean Corpuscular Volume 97, Mean Corpuscular Hemoglobin 31.5H, Mean Corpuscular Hemoglobin Concent 32.3, Red Cell Distribution Width 13.3, Platelet Count 97L, Mean Platelet Volume 6.8, Neutrophils (%) (Auto) , Lymphocytes (%) ( Auto) , Monocytes (%) (Auto) , Eosinophils (%) (Auto) , Basophils (%) (Auto) , Differential Total Cells Counted 100, Neutrophils % (Manual) 40L, Lymphocytes % (Manual) 28, Monocytes % (Manual) 8, Eosinophils % (Manual) 24H, Basophils % ( Manual) 0, Band Neutrophils 0, Platelet Estimate DecreasedL, Platelet Morphology Normal, Hypochromasia 1+, Sodium Level 135L, Potassium Level 4.8, Chloride Level 97L, Carbon Dioxide Level 28, Anion Gap 10, Blood Urea Nitrogen 59H, Creatinine 12.6H, Estimat Glomerular Filtration Rate 5.0, Glucose Level 101 , Calcium Level 8.6, Phosphorus Level 7.0H, Magnesium Level 2.2, Total Bilirubin 0.9, Aspartate Amino Transf (AST/SGOT) 21, Alanine Aminotransferase ( ALT/SGPT) 8L, Alkaline Phosphatase 164H, Total Protein 7.4, Albumin 2.6L, Globulin 4.8, Albumin/Globulin Ratio 0.5L 08/04/17 07:45: Pro-B-Type Natriuretic Peptide 37124H Height (Feet): 5 Height (Inches): 5.00 Weight (Pounds): 206 General Appearance: no apparent distress Objective no change LIAM MONTELONGO Aug 04, 2017 13:04
--- NOTE | 2017-08-04 13:24 | General Progress Note ---
Assessment/Plan Assessment/Plan #. Left leg dvt --> acute onset, will need to review final duplex results --> on apixaban daily x 3 months, low h/h will need to monitor closely --> okay to change to different anticoagulant if renal clearance an issue --> If h/h downtrends below 7.5, consider ivc filter placement. --> Hemoglobin currently >7.5 #. Anemia secondary to chronic disease. --> Hemoglobin levels have been stable. No blood transfusion required at this time. --> S/P abd CAT scan revealing evidence of hepatic cirrhosis. --> Continue to closely monitor and trend cbc daily. --> Anemia workup completed and reviewed. Iron 42, TIBC 180, Ferritin 593, B12 876. --> Ferritin is >500, hgb goal is >7 --> Anemia w/u has been reviewed --> ++Occult blood. Consider GI Services and Recs. #. Thrombocytopenia. --> Hepatitis C ab ++, PCR - --> Monitor platelet level. Transfuse if platelet count <20k --> Levels remain low. Monitor and trend cbc daily. # Hepatosplenomegaly. Ascites. There is also evidence of generalized anasarca, with pleural fluid and generalized subcutaneous edema --> Abd pain improved on pain management --> Refer to surgery note. #. Anemia of kidney disease --> HD as needed per nephrology team --> Monitor closely. --> Does not require iron at this time #. Generalized body ache related to fluid overload. #. End-stage renal disease, on hemodialysis as needed --> On hemodialysis #. Respiratory failure due to CHF and pneumonia. --> Providencia and pseudomonas. --> On vancomycin and ethambutol per ID. --> Chest pain improved at this time, on pain management. Chest xray on 07/28 showing that cavitary lesion improving. #. Shortness of breath. Due to underlying pneumonia. #. Atrial flutter with rapid ventricular response. On metoprolol and diltiazem. #. Conjunctivitis. Begin tobramycin. On anti TB treatment. On Amikacin and ethambutol. Continue telemetry. Subjective Date patient seen: Aug 03, 2017 Constitutional: Denies: no symptoms, chills, diaphoresis, fever, malaise, weakness, other HEENT: Denies: no symptoms, eye pain, blurred vision, tearing, double vision, ear pain, ear discharge, nose pain, nose congestion, throat pain, throat swelling, mouth pain, mouth swelling, other Cardiovascular: Denies: no symptoms, chest pain, edema, irregular heart rate, lightheadedness, palpitations, syncope, other Respiratory: Denies: no symptoms, cough, orthopnea, shortness of breath, SOB with excertion, SOB at rest, sputum, stridor, wheezing, other Gastrointestinal/Abdominal: Denies: no symptoms, abdomen distended, abdominal pain, black stools, tarry stools, blood in stool, constipated, diarrhea, difficulty swallowing, nausea, poor appetite, poor fluid intake, rectal bleeding , vomiting, other Genitourinary: Denies: no symptoms, burning, discharge, frequency, flank pain, hematuria, incontinence, pain, urgency, other Neurologic/Psychiatric: Denies: no symptoms, anxiety, depressed, emotional problems, headache, numbness, paresthesia, pre-existing deficit, seizure, tingling, tremors, weakness, other Endocrine: Denies: no symptoms, excessive sweating, flushing, intolerance to cold, intolerance to heat, increased hunger, increased thirst, increased urine, unexplained weight gain, unexplained weight loss, other Hematologic/Lymphatic: Reports: anemia Allergies: Coded Allergies: IODINE AND IODIDE CONTAINING PRODUC (Verified Allergy, Mild, itching and pruritis, 06/25/17) Uncoded Allergies: CONTRAST/DYE (Allergy, Intermediate, PRURITIS AND ITCHING, 06/25/17) Subjective On pain control. No new events. Distended. Objective Last 24 Hour Vital Signs Date Time Temp Pulse Resp B/P (MAP) Pulse Ox O2 Delivery O2 Flow Rate FiO2 08/04/17 13:07 68 143/86 08/04/17 12:00 98.1 68 20 143/86 98 Room Air 98.1 08/04/17 08:54 79 125/71 08/04/17 08:54 125/71 08/04/17 08:00 98.0 68 20 150/94 100 Room Air 98.0 08/04/17 05:35 79 125/71 08/04/17 04:00 98.4 73 20 125/71 92 Room Air 98.4 08/04/17 00:00 98.3 70 22 141/83 98 98.3 08/03/17 21:56 95 Room Air 21 08/03/17 21:56 Room Air 08/03/17 21:14 67 134/82 08/03/17 21:13 67 134/82 08/03/17 21:13 134/82 08/03/17 20:00 98.8 67 22 134/82 100 98.8 08/03/17 16:30 97.1 08/03/17 16:00 97.1 66 19 149/86 96 Nasal Cannula 2.0 97.1 08/03/17 15:31 98.3 08/03/17 15:31 64 142/68 Intake and Output 08/03/17 08/04/17 19:00 07:00 Intake Total 720 ml 590 ml Balance 720 ml 590 ml Intake Oral 720 ml 590 ml Laboratory Tests 08/04/17 07:40: White Blood Count 5.1, Red Blood Count 2.50L, Hemoglobin 7.9L, Hematocrit 24.3L , Mean Corpuscular Volume 97, Mean Corpuscular Hemoglobin 31.5H, Mean Corpuscular Hemoglobin Concent 32.3, Red Cell Distribution Width 13.3, Platelet Count 97L, Mean Platelet Volume 6.8, Neutrophils (%) (Auto) , Lymphocytes (%) ( Auto) , Monocytes (%) (Auto) , Eosinophils (%) (Auto) , Basophils (%) (Auto) , Differential Total Cells Counted 100, Neutrophils % (Manual) 40L, Lymphocytes % (Manual) 28, Monocytes % (Manual) 8, Eosinophils % (Manual) 24H, Basophils % ( Manual) 0, Band Neutrophils 0, Platelet Estimate DecreasedL, Platelet Morphology Normal, Hypochromasia 1+, Sodium Level 135L, Potassium Level 4.8, Chloride Level 97L, Carbon Dioxide Level 28, Anion Gap 10, Blood Urea Nitrogen 59H, Creatinine 12.6H, Estimat Glomerular Filtration Rate 5.0, Glucose Level 101 , Calcium Level 8.6, Phosphorus Level 7.0H, Magnesium Level 2.2, Total Bilirubin 0.9, Aspartate Amino Transf (AST/SGOT) 21, Alanine Aminotransferase ( ALT/SGPT) 8L, Alkaline Phosphatase 164H, Total Protein 7.4, Albumin 2.6L, Globulin 4.8, Albumin/Globulin Ratio 0.5L 08/04/17 07:45: Pro-B-Type Natriuretic Peptide 29786S Height (Feet): 5 Height (Inches): 5.00 Weight (Pounds): 206 General Appearance: no apparent distress, confused Neck: supple Cardiovascular: normal rate, regular rhythm Respiratory/Chest: decreased breath sounds Abdomen: distended Edema: mild edema Irving Parker MD Aug 04, 2017 13:24
[2017-08-04] MEDS ORDERED: HYDROcodone/Acetamin 10/325 tab ORAL PRN ×2 (14:15→18:15)
--- NOTE | 2017-08-04 15:30 | Diagnostic Imaging Report ---
Indication: Dyspnea Technique: XRAY Chest 1v Comparison: 07/28/2017 Findings: Stable cardiomegaly. Pacemaker/AICD again noted. Interval removal of the right transjugular central venous catheter. There is persistent interstitial opacification/edema, slightly increased. Right-sided cavitary lesion again noted with increased surrounding airspace opacity. No definite pneumothorax. Osseous structures are stable. Impression: Slight increase in interstitial opacification/edema and increasing opacification around the known right sided cavitary lesion.
--- NOTE | 2017-08-04 16:57 | Infectious Diseases Prog Note ---
Assessment/Plan Assessment/Plan Assessment/Plan Cavitary PNA. SCx: Neg ( m/l anaerobic abscess than necrotizing Pneum , doubt TB or fungal ) ; improving - 07/09 SP BAL Cx( Abby and MOJGAN : Colonizers ) , Path : Neg for fungus and Malignancy -CXR 07/28: Possibly improving right lung cavitary lesion, over 7 days Otherwise unchanged findings as described. - Ch-CT 07/15 : The overall lesion appears smaller, measuring 6.3 cm AP by 3.6 cm transverse by 2.3 cm craniocaudad currently -CT chest 06/25: Since the prior study of 06/15/2017, and. From further reduction in size of previously demonstrated thick walled right upper lobe cavitary mass. This was previously thought to most likely represent a cavitary inflammatory mass, and the interim reduction in size certainly supports that. Much less likely a cavitary neoplasm, but follow-up to resolution is recommended. Markedly improved parenchymal disease bilaterally, since the previous study. Nonetheless , extensive atelectasis and groundglass consolidation persists. Persistent small right pleural effusion, smaller than on the prior study. Resolved left pleural effusion 6 mm nodular opacity in the right upper lobe, not evident previously but likely obscured by surrounding consolidated lung parenchyma. This should be followed up in 6 months to one year depending on results of interim follow-up exams T-SPOT :Neg Culture and stain AFB x 3 : Neg MTB PCR x2 : neg cryptococcus Ag, Histoplams mycelial Ab , Blastomyces ab : neg ; histoplasma yeast ab (not able to be done due to anticomplementary activity) -Cocci, Asp ag p -Fungitell + 144 (?aspergillosis vs m/l false positive) CT chest 06/15: Slightly smaller (6 cm diameter ) but mostly unchanged cavitary lesion in the right lung, previously thought to represent a cavitating inflammatory process. Lung abscess is certainly a possibility. Fairly extensive bilateral pulmonary parenchymal consolidation, slightly increased from previous exam of 06/05/2017. Likely a combination of pulmonary edema and pneumonia. Small right and trace left pleural effusion, new/increased from the previous study. CT 06/05: 7.8 x 5.3 x 6.6 cm dense opacity in the posterior inferior right upper lobe with a central cavitation. CRP 14 Influenza negative Coccidioidal ,Galactomannan : NEG ( PER LAB ) Transaminitis , improved after stopping rifampin 2/2 Hep C cirrhosis- no active Hep C as VL not detected -CT abd/p: Evidence of hepatic cirrhosis. Hepatosplenomegaly. evidence of generalized anasarca, with pleural fluid and generalized subcutaneous edema. Cholelithiasis, also previously reported. Possible diverticulosis. No evidence of diverticulitis US Abd : Cholelithiasis. There is gallbladder wall thickening, likely related to hemodynamic abnormalities Splenomegaly. Evidence of hepatic cirrhosis HIV : NEG Hep Panel B neg , C Ab : +ve , VL not detected leukopenia and TCP 2/2 splenomegaly Seizure disorder History of CVA History of pacemaker placement Hyperlipidemia Hypertension COPD/asthma End-stage renal disease, on hemodialysis Diabetes Anxiety Anemia Echo, ejection fraction 45% to 50%. 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 07/16 SP Zoysn d# 9 ( for SOB and CXR worsen , better coverage of anaerobes, PSA and Providencia ); 07/07 Flagyl 07/06 SP Voriconazole ( low antonio for fungal infection , and in the setting of cirrhosis ) 07/05 SP Micafungin abx d#20 , Rifampin 600mg qd #10 07/01 SP Ceftriaxone #10 06/28 SP Amikacin #15 06/25 SP PO Voriconazole #3 06/20 SP Liposomal Ampho #8 06/17 SP IV Vancomycin #14, Meropenem #5 06/13 SP Zosyn d# 10 06/08 SP Zithromax D# 6 BAL fungal and AFB Cx : P - CMP Subjective Allergies: Coded Allergies: IODINE AND IODIDE CONTAINING PRODUC (Verified Allergy, Mild, itching and pruritis, 06/25/17) Uncoded Allergies: CONTRAST/DYE (Allergy, Intermediate, PRURITIS AND ITCHING, 06/25/17) Subjective afebrile no leukocytosis Discharge planning supratherapeutic amikacin levels Objective Vital Signs Last 24 Hour Vital Signs Date Time Temp Pulse Resp B/P (MAP) Pulse Ox O2 Delivery O2 Flow Rate FiO2 08/04/17 13:07 68 143/86 08/04/17 12:00 98.1 68 20 143/86 98 Room Air 98.1 08/04/17 08:54 79 125/71 08/04/17 08:54 125/71 08/04/17 08:00 98.0 68 20 150/94 100 Room Air 98.0 08/04/17 05:35 79 125/71 08/04/17 04:00 98.4 73 20 125/71 92 Room Air 98.4 08/04/17 00:00 98.3 70 22 141/83 98 98.3 08/03/17 21:56 95 Room Air 21 08/03/17 21:56 Room Air 08/03/17 21:14 67 134/82 08/03/17 21:13 67 134/82 08/03/17 21:13 134/82 08/03/17 20:00 98.8 67 22 134/82 100 98.8 Height (Feet): 5 Height (Inches): 5.00 Weight (Pounds): 206 Objective General Appearance: WD/WN, alert, moderate distress EENT: PERRL/EOMI, normal ENT inspection Neck: non-tender, normal alignment, supple, normal inspection Cardiovascular: normal peripheral pulses, normal rate, regular rhythm, no gallop/murmur, no JVD Respiratory/Chest: Non rebreather; respiratory distress, crackles/rales, rhonchi - bilaterally, expiratory wheezing Abdomen: normal bowel sounds, non tender, soft, no organomegaly, no mass Extremities: normal range of motion Neurologic: 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, no motor/sensory deficits Skin: normal pigmentation, warm/dry Laboratory Tests Test 08/04/17 07:40 08/04/17 07:45 White Blood Count 5.1 K/UL (4.8-10.8) Red Blood Count 2.50 M/UL (4.70-6.10) L Hemoglobin 7.9 G/DL (14.2-18.0) L Hematocrit 24.3 % (42.0-52.0) L Mean Corpuscular Volume 97 FL (80-99) Mean Corpuscular Hemoglobin 31.5 PG (27.0-31.0) H Mean Corpuscular Hemoglobin Concent 32.3 G/DL (32.0-36.0) Red Cell Distribution Width 13.3 % (11.6-14.8) Platelet Count 97 K/UL (150-450) L Mean Platelet Volume 6.8 FL (6.5-10.1) Neutrophils (%) (Auto) % (45.0-75.0) Lymphocytes (%) (Auto) % (20.0-45.0) Monocytes (%) (Auto) % (1.0-10.0) Eosinophils (%) (Auto) % (0.0-3.0) Basophils (%) (Auto) % (0.0-2.0) Differential Total Cells Counted 100 Neutrophils % (Manual) 40 % (45-75) L Lymphocytes % (Manual) 28 % (20-45) Monocytes % (Manual) 8 % (1-10) Eosinophils % (Manual) 24 % (0-3) H Basophils % (Manual) 0 % (0-2) Band Neutrophils 0 % (0-8) Platelet Estimate Decreased L Platelet Morphology Normal Hypochromasia 1+ Sodium Level 135 MMOL/L (136-145) L Potassium Level 4.8 MMOL/L (3.5-5.1) Chloride Level 97 MMOL/L (98-107) L Carbon Dioxide Level 28 MMOL/L (21-32) Anion Gap 10 mmol/L (5-15) Blood Urea Nitrogen 59 mg/dL (7-18) H Creatinine 12.6 MG/DL (0.55-1.30) H Estimat Glomerular Filtration Rate 5.0 mL/min (>60) Glucose Level 101 MG/DL (74-106) Calcium Level 8.6 MG/DL (8.5-10.1) Phosphorus Level 7.0 MG/DL (2.5-4.9) H Magnesium Level 2.2 MG/DL (1.8-2.4) Total Bilirubin 0.9 MG/DL (0.2-1.0) Aspartate Amino Transf (AST/SGOT) 21 U/L (15-37) Alanine Aminotransferase (ALT/SGPT) 8 U/L (12-78) L Alkaline Phosphatase 164 U/L (46-116) H Total Protein 7.4 G/DL (6.4-8.2) Albumin 2.6 G/DL (3.4-5.0) L Globulin 4.8 g/dL Albumin/Globulin Ratio 0.5 (1.0-2.7) L Pro-B-Type Natriuretic Peptide 41384 pg/mL (0-125) H Current Medications Medications (Trade) Dose Ordered Sig/Jose Route PRN Reason Start Time Stop Time Status Last Admin Dose Admin Acetaminophen/ Hydrocodone Bitart ([place] 10/325) 1 tab Q4H PRN ORAL Moderate Pain (Pain Scale 4-6) 08/04/17 18:15 08/11/17 14:14 UNV Alprazolam (Xanax) 2 mg BID PRN ORAL For Anxiety 08/02/17 14:15 08/07/17 01:29 08/04/17 08:52 Amikacin Protocol (Amikacin pharmacy to dose) 1 ea DAILY PRN MISC Per rx protocol 08/03/17 15:45 08/17/17 08:59 Apixaban (Eliquis) 2.5 mg EVERY 12 HOURS ORAL 07/31/17 21:00 08/30/17 20:59 08/03/17 21:12 Carisoprodol (Soma) 350 mg Q6H PRN ORAL Muscle Spasm 07/18/17 15:30 08/17/17 15:29 08/04/17 04:29 Clindamycin HCl (Cleocin) 450 mg EVERY 6 HOURS ORAL 07/24/17 12:00 09/04/17 11:59 08/04/17 12:11 Dextrose (Dextrose 50%) 25 ml STAT PRN IV HYPOGLYCEMIA 07/16/17 08:30 08/08/17 08:29 Diltiazem HCl (Cardizem) 60 mg Q8HR ORAL 07/22/17 22:00 08/21/17 21:59 08/04/17 13:07 Ethambutol HCl (Myambutol) 1,000 mg 3XW@2100 ORAL 07/23/17 21:00 08/22/17 20:59 08/01/17 20:34 Hydromorphone HCl (Dilaudid) 2 mg Q4H PRN ORAL For Pain 08/01/17 19:00 08/08/17 18:59 08/04/17 13:08 Levofloxacin (Levaquin) 750 mg EVERY OTHER DAY@2000 ORAL 08/01/17 20:00 08/08/17 19:59 08/03/17 21:13 Lisinopril (Prinivil) 20 mg Q12HR ORAL 07/16/17 09:00 08/15/17 08:59 08/03/17 21:13 Metoprolol Tartrate (Lopressor) 100 mg Q12HR ORAL 07/15/17 21:00 08/10/17 20:59 08/03/17 21:13 Pantoprazole (Protonix) 40 mg BID ORAL 07/27/17 18:00 08/26/17 17:59 08/04/17 08:52 Sevelamer Carbonate (Renvela) 1,600 mg THREE TIMES A DAY ORAL 08/04/17 18:00 09/03/17 17:59 Temazepam (Restoril) 15 mg HSPRN PRN ORAL Insomnia 07/29/17 21:00 08/05/17 20:59 08/03/17 23:15 Aleja Crocker M.D. Aug 04, 2017 16:57
[2017-08-04] MEDS ORDERED: DiphenhydrAMINE 50mg/ml Inj IVP PRN (18:00)
[2017-08-05] VITALS: BP 160/92
[2017-08-05] MEDS: HYDROmorphone 2mg tab ORAL PRN ×3 (00:05→10:34)
[2017-08-05] MEDS: Lisinopril 20mg tab ORAL SCH ×2 (00:53→08:28)
[2017-08-05 00:54] VITALS: BP 153/86
--- NOTE | 2017-08-05 00:56 | General Progress Note ---
Assessment/Plan Assessment/Plan #. Left leg dvt --> acute onset, will need to review final duplex results --> on apixaban daily x 3 months, low h/h will need to monitor closely --> okay to change to different anticoagulant if renal clearance an issue --> If h/h downtrends below 7.5, consider ivc filter placement. --> Hemoglobin currently >7.5, but downtrended from yesterday. Continue to monitor closely. #. Anemia secondary to chronic disease. --> Hemoglobin levels have been stable. No blood transfusion required at this time. --> S/P abd CAT scan revealing evidence of hepatic cirrhosis. --> Continue to closely monitor and trend cbc daily. --> Anemia workup completed and reviewed. Iron 42, TIBC 180, Ferritin 593, B12 876. --> Ferritin is >500, hgb goal is >7 --> Anemia w/u has been reviewed --> ++Occult blood. Consider GI Services and Recs. #. Thrombocytopenia. --> Hepatitis C ab ++, PCR - --> Monitor platelet level. Transfuse if platelet count <20k --> Levels remain low. Monitor and trend cbc daily. # Hepatosplenomegaly. Ascites. There is also evidence of generalized anasarca, with pleural fluid and generalized subcutaneous edema --> Abd pain improved on pain management --> Refer to surgery note. #. Anemia of kidney disease --> HD as needed per nephrology team --> Monitor closely. --> Does not require iron at this time #. Generalized body ache related to fluid overload. #. End-stage renal disease, on hemodialysis as needed --> On hemodialysis #. Respiratory failure due to CHF and pneumonia. --> Providencia and pseudomonas. --> On vancomycin and ethambutol per ID. --> Chest pain improved at this time, on pain management. Chest xray on 07/28 showing that cavitary lesion improving. #. Shortness of breath. Due to underlying pneumonia. #. Atrial flutter with rapid ventricular response. On metoprolol and diltiazem. #. Conjunctivitis. Begin tobramycin. On anti TB treatment. On Amikacin and ethambutol. Continue telemetry. Subjective Date patient seen: Aug 04, 2017 Constitutional: Denies: no symptoms, chills, diaphoresis, fever, malaise, weakness, other HEENT: Denies: no symptoms, eye pain, blurred vision, tearing, double vision, ear pain, ear discharge, nose pain, nose congestion, throat pain, throat swelling, mouth pain, mouth swelling, other Cardiovascular: Denies: no symptoms, chest pain, edema, irregular heart rate, lightheadedness, palpitations, syncope, other Respiratory: Denies: no symptoms, cough, orthopnea, shortness of breath, SOB with excertion, SOB at rest, sputum, stridor, wheezing, other Gastrointestinal/Abdominal: Denies: no symptoms, abdomen distended, abdominal pain, black stools, tarry stools, blood in stool, constipated, diarrhea, difficulty swallowing, nausea, poor appetite, poor fluid intake, rectal bleeding , vomiting, other Genitourinary: Denies: no symptoms, burning, discharge, frequency, flank pain, hematuria, incontinence, pain, urgency, other Neurologic/Psychiatric: Denies: no symptoms, anxiety, depressed, emotional problems, headache, numbness, paresthesia, pre-existing deficit, seizure, tingling, tremors, weakness, other Allergies: Coded Allergies: IODINE AND IODIDE CONTAINING PRODUC (Verified Allergy, Mild, itching and pruritis, 06/25/17) Uncoded Allergies: CONTRAST/DYE (Allergy, Intermediate, PRURITIS AND ITCHING, 06/25/17) Subjective Platelets improved. No new events overnight. Objective Last 24 Hour Vital Signs Date Time Temp Pulse Resp B/P (MAP) Pulse Ox O2 Delivery O2 Flow Rate FiO2 08/04/17 22:31 98.0 08/04/17 21:32 95 Nasal Cannula 2.0 28 08/04/17 21:32 Nasal Cannula 2.0 28 08/04/17 21:04 98.0 08/04/17 20:05 98.0 08/04/17 20:00 98.8 75 22 131/88 96 98.8 08/04/17 16:00 98.0 66 20 141/69 99 Room Air 98.0 08/04/17 13:07 68 143/86 08/04/17 12:00 98.1 68 20 143/86 98 Room Air 98.1 08/04/17 08:54 79 125/71 08/04/17 08:54 125/71 08/04/17 08:00 98.0 68 20 150/94 100 Room Air 98.0 08/04/17 05:35 79 125/71 08/04/17 04:00 98.4 73 20 125/71 92 Room Air 98.4 Intake and Output 08/04/17 08/05/17 19:00 07:00 Intake Total 600 ml Balance 600 ml Intake Oral 600 ml Laboratory Tests 08/04/17 07:40: White Blood Count 5.1, Red Blood Count 2.50L, Hemoglobin 7.9L, Hematocrit 24.3L , Mean Corpuscular Volume 97, Mean Corpuscular Hemoglobin 31.5H, Mean Corpuscular Hemoglobin Concent 32.3, Red Cell Distribution Width 13.3, Platelet Count 97L, Mean Platelet Volume 6.8, Neutrophils (%) (Auto) , Lymphocytes (%) ( Auto) , Monocytes (%) (Auto) , Eosinophils (%) (Auto) , Basophils (%) (Auto) , Differential Total Cells Counted 100, Neutrophils % (Manual) 40L, Lymphocytes % (Manual) 28, Monocytes % (Manual) 8, Eosinophils % (Manual) 24H, Basophils % ( Manual) 0, Band Neutrophils 0, Platelet Estimate DecreasedL, Platelet Morphology Normal, Hypochromasia 1+, Sodium Level 135L, Potassium Level 4.8, Chloride Level 97L, Carbon Dioxide Level 28, Anion Gap 10, Blood Urea Nitrogen 59H, Creatinine 12.6H, Estimat Glomerular Filtration Rate 5.0, Glucose Level 101 , Calcium Level 8.6, Phosphorus Level 7.0H, Magnesium Level 2.2, Total Bilirubin 0.9, Aspartate Amino Transf (AST/SGOT) 21, Alanine Aminotransferase ( ALT/SGPT) 8L, Alkaline Phosphatase 164H, Total Protein 7.4, Albumin 2.6L, Globulin 4.8, Albumin/Globulin Ratio 0.5L 08/04/17 07:45: Pro-B-Type Natriuretic Peptide 98922H Height (Feet): 5 Height (Inches): 5.00 Weight (Pounds): 206 General Appearance: no apparent distress, confused Cardiovascular: normal rate, regular rhythm Respiratory/Chest: decreased breath sounds Abdomen: non tender, soft Irving Parker MD August 05, 2017 00:56
[2017-08-05] MEDS: Clindamycin 150mg cap ORAL SCH ×3 (00:59→12:00)
[2017-08-05 01:15] VITALS: BP 153/86
[2017-08-05 04:00] VITALS: BP 150/87
[2017-08-05] MEDS: dilTIAZem HCl 60mg tab ORAL SCH (05:56)
[2017-08-05 08:00] VITALS: BP 145/95
[2017-08-05] MEDS: ALPRAZolam 0.5mg tab ORAL PRN (08:28)
[2017-08-05] MEDS: Eliquis 2.5mg tablet ORAL SCH (08:28)
[2017-08-05] MEDS ORDERED: PROTONIX40 MG ORAL (10:49)
[2017-08-05] MEDS ORDERED: ZOFRAN4 M3 ORAL (10:50)
[2017-08-05] MEDS ORDERED: RENVELA800 MG ORAL (10:51)
[2017-08-05] MEDS ORDERED: AMIKACIN S1000 MG/4 IJ (10:54)
[2017-08-05] MEDS ORDERED: LEVAQUIN750 MG ORAL (10:57)
[2017-08-05] MEDS ORDERED: ELIQUIS2.5 MG PO (10:58)
[2017-08-05] MEDS ORDERED: RESTORIL15 MG ORAL (10:58)
[2017-08-05] MEDS ORDERED: CLEOCIN HCL150 MG PO (10:59)
[2017-08-05] MEDS ORDERED: CARDIZEM120 MG PO (11:00)
[2017-08-05] MEDS ORDERED: PRINIVIL20 MG ORAL (11:01)
[2017-08-05] MEDS ORDERED: METOPROLOL TAR100 M1 ORAL (11:02)
[2017-08-05] MEDS ORDERED: NORCO 10-325 T1 EACH ORAL (11:13)
[2017-08-05] MEDS ORDERED: HYDROMORPHONE HC2 M1 PO (11:15)
[2017-08-05] MEDS ORDERED: MYAMBUTOL400 MG ORAL (11:22)
[2017-08-05 12:00] VITALS: BP 148/94
--- NOTE | 2017-08-05 13:25 | Pulmonology Progress Note ---
Assessment/Plan Problems: (1) Respiratory failure (2) Pneumonia (3) Rapid atrial fibrillation (4) HTN (hypertension) (5) ESRD (end stage renal disease) on dialysis (6) Anemia Assessment/Plan all reviewed feeling better CXR 08/04 : RUL cavitary lesion improving, donaldson are getting thinner repeat cxr weekly slowly improving onNC HD by nutrition services manager dc to alf today Subjective ROS Limited/Unobtainable: No Constitutional: Reports: no symptoms Respiratory: Reports: no symptoms Allergies: Coded Allergies: IODINE AND IODIDE CONTAINING PRODUC (Verified Allergy, Mild, itching and pruritis, 06/25/17) Uncoded Allergies: CONTRAST/DYE (Allergy, Intermediate, PRURITIS AND ITCHING, 06/25/17) Objective Last 24 Hour Vital Signs Date Time Temp Pulse Resp B/P (MAP) Pulse Ox O2 Delivery O2 Flow Rate FiO2 08/05/17 12:00 97.8 64 19 148/94 95 97.8 08/05/17 10:34 98.2 08/05/17 08:28 69 145/95 08/05/17 08:28 145/95 08/05/17 08:00 98.2 69 20 145/95 95 98.2 08/05/17 05:58 98.2 08/05/17 05:56 73 150/87 08/05/17 04:00 98.2 73 20 150/87 95 98.2 08/05/17 01:15 97.6 71 24 153/86 95 Nasal Cannula 3.5 28 97.6 08/05/17 00:54 97.6 71 24 153/86 Nasal Cannula 3.5 97.6 08/05/17 00:53 71 153/86 08/05/17 00:53 153/86 08/05/17 00:30 Nasal Cannula 3.5 08/05/17 00:00 97.2 70 22 160/92 95 97.2 08/04/17 22:31 98.0 08/04/17 22:00 97.0 73 24 152/89 Nasal Cannula 3.5 97.0 08/04/17 22:00 75 131/88 08/04/17 21:32 95 Nasal Cannula 2.0 28 08/04/17 21:32 Nasal Cannula 2.0 28 08/04/17 21:04 98.0 4/30/18 20:05 98.0 08/04/17 20:00 98.8 75 22 131/88 96 98.8 08/04/17 16:00 98.0 66 20 141/69 99 Room Air 98.0 Intake and Output 08/04/17 08/05/17 19:00 07:00 Intake Total 600 ml 420 ml Output Total 2700 ml Balance 600 ml -2280 ml Intake Oral 600 ml 420 ml Hemodialysis UF 2700 ml # Voids 1 Objective General Appearance: WD/WN HEENT: normocephalic, atraumatic, anicteric Respiratory/Chest: loud rhonchi Cardiovascular: normal peripheral pulses, normal rate, regular rhythm Abdomen: normal bowel sounds, soft, non tender, no organomegaly Genitourinary: normal external genitalia Extremities: no cyanosis Skin: no rash, no lesions Neurologic/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
--- NOTE | 2017-08-05 15:26 | Infectious Diseases Prog Note ---
Assessment/Plan Assessment/Plan Assessment/Plan Cavitary PNA. SCx: Neg ( m/l anaerobic abscess than necrotizing Pneum , doubt TB or fungal ) ; improving - 07/09 SP BAL Cx( Abby and MOJGAN : Colonizers ) , Path : Neg for fungus and Malignancy -CXR 07/28: Possibly improving right lung cavitary lesion, over 7 days Otherwise unchanged findings as described. - Ch-CT 07/15 : The overall lesion appears smaller, measuring 6.3 cm AP by 3.6 cm transverse by 2.3 cm craniocaudad currently -CT chest 06/25: Since the prior study of 06/15/2017, and. From further reduction in size of previously demonstrated thick walled right upper lobe cavitary mass. This was previously thought to most likely represent a cavitary inflammatory mass, and the interim reduction in size certainly supports that. Much less likely a cavitary neoplasm, but follow-up to resolution is recommended. Markedly improved parenchymal disease bilaterally, since the previous study. Nonetheless , extensive atelectasis and groundglass consolidation persists. Persistent small right pleural effusion, smaller than on the prior study. Resolved left pleural effusion 6 mm nodular opacity in the right upper lobe, not evident previously but likely obscured by surrounding consolidated lung parenchyma. This should be followed up in 6 months to one year depending on results of interim follow-up exams T-SPOT :Neg Culture and stain AFB x 3 : Neg MTB PCR x2 : neg cryptococcus Ag, Histoplams mycelial Ab , Blastomyces ab : neg ; histoplasma yeast ab (not able to be done due to anticomplementary activity) -Cocci, Asp ag p -Fungitell + 144 (?aspergillosis vs m/l false positive) CT chest 06/15: Slightly smaller (6 cm diameter ) but mostly unchanged cavitary lesion in the right lung, previously thought to represent a cavitating inflammatory process. Lung abscess is certainly a possibility. Fairly extensive bilateral pulmonary parenchymal consolidation, slightly increased from previous exam of 06/05/2017. Likely a combination of pulmonary edema and pneumonia. Small right and trace left pleural effusion, new/increased from the previous study. CT 06/05: 7.8 x 5.3 x 6.6 cm dense opacity in the posterior inferior right upper lobe with a central cavitation. CRP 14 Influenza negative Coccidioidal ,Galactomannan : NEG ( PER LAB ) Transaminitis , improved after stopping rifampin 2/2 Hep C cirrhosis- no active Hep C as VL not detected -CT abd/p: Evidence of hepatic cirrhosis. Hepatosplenomegaly. evidence of generalized anasarca, with pleural fluid and generalized subcutaneous edema. Cholelithiasis, also previously reported. Possible diverticulosis. No evidence of diverticulitis US Abd : Cholelithiasis. There is gallbladder wall thickening, likely related to hemodynamic abnormalities Splenomegaly. Evidence of hepatic cirrhosis HIV : NEG Hep Panel B neg , C Ab : +ve , VL not detected leukopenia and TCP 2/2 splenomegaly Seizure disorder History of CVA History of pacemaker placement Hyperlipidemia Hypertension COPD/asthma End-stage renal disease, on hemodialysis Diabetes Anxiety Anemia Echo, ejection fraction 45% to 50%. PLAN: - Cont oral Clinda d# 21 ( till resolution/ stabilization of abscess) ( abx d# 59 ); will continue for 3 more weeks upon discharge Continue Ethambutol and Levaquin, Amikacin ( empiric TB AB Rx d# 48 TB control they want to cont TB Meds regardless of AFB Cultures Neg x 3 (called : 07/22 ) ) --patient currently has hep lock- can continue via PIV (next dose 500mg after next HD) then dose by pharmacy at --if no PIV access, then can be given via HD cath after HD --if neither is possible, then can be given IM via smallest kip needle (above 2 are preferred over IM given patient is on anticoagulation and there is risk for intramuscular hematoma formation). -At this point patient is cleared for discharge to - patient with neg final AFB cultures x3, more than 30 days of TB treatment, off airborne isolation; for discharge today 07/16 SP Zoysn d# 9 ( for SOB and CXR worsen , better coverage of anaerobes, PSA and Providencia ); 07/07 Flagyl 07/06 SP Voriconazole ( low antonio for fungal infection , and in the setting of cirrhosis ) 07/05 SP Micafungin abx d#20 , Rifampin 600mg qd #10 07/01 SP Ceftriaxone #10 06/28 SP Amikacin #15 06/25 SP PO Voriconazole #3 06/20 SP Liposomal Ampho #8 06/17 SP IV Vancomycin #14, Meropenem #5 06/13 SP Zosyn d# 10 3 SP Zithromax D# 6 Discussed with counter caser, pharmacist, RN. Left message for Dr Travis, Dept of health MD. Subjective Allergies: Coded Allergies: IODINE AND IODIDE CONTAINING PRODUC (Verified Allergy, Mild, itching and pruritis, 06/25/17) Uncoded Allergies: CONTRAST/DYE (Allergy, Intermediate, PRURITIS AND ITCHING, 06/25/17) Subjective afebrile no leukocytosis for discharge today Objective Vital Signs Last 24 Hour Vital Signs Date Time Temp Pulse Resp B/P (MAP) Pulse Ox O2 Delivery O2 Flow Rate FiO2 08/05/17 12:00 97.8 64 19 148/94 95 97.8 08/05/17 10:34 98.2 08/05/17 08:28 69 145/95 08/05/17 08:28 145/95 08/05/17 08:00 98.2 69 20 145/95 95 98.2 08/05/17 05:58 98.2 08/05/17 05:56 73 150/87 08/05/17 04:00 98.2 73 20 150/87 95 98.2 08/05/17 01:15 97.6 71 24 153/86 95 Nasal Cannula 3.5 28 97.6 08/05/17 00:54 97.6 71 24 153/86 Nasal Cannula 3.5 97.6 08/05/17 00:53 71 153/86 08/05/17 00:53 153/86 08/05/17 00:30 Nasal Cannula 3.5 08/05/17 00:00 97.2 70 22 160/92 95 97.2 08/04/17 22:31 98.0 08/04/17 22:00 97.0 73 24 152/89 Nasal Cannula 3.5 97.0 08/04/17 22:00 75 131/88 08/04/17 21:32 95 Nasal Cannula 2.0 28 08/04/17 21:32 Nasal Cannula 2.0 28 08/04/17 21:04 98.0 08/04/17 20:05 98.0 08/04/17 20:00 98.8 75 22 131/88 96 98.8 08/04/17 16:00 98.0 66 20 141/69 99 Room Air 98.0 Height (Feet): 5 Height (Inches): 5.00 Weight (Pounds): 198 Objective not done as patient already discharged Laboratory Tests Test 08/05/17 00:40 Random Amikacin Level 10.1 MG/L Aleja Crocker M.D. August 05, 2017 15:26
--- NOTE | 2017-08-05 20:17 | General Progress Note ---
Assessment/Plan Assessment/Plan Assessment - gallstones - abnormal LFT / cirrhosis - Periodic N/V with abnormal GB ultrasound, ? possibly biliary colic - patient declined HIDA - Anemia, multifactorial - EGD/Colon negative x for portal HTN gastropathy - OB (+) Stool - due to portal HTN gastropathy - ESRD/HD - DM - HTN - COPD - Cavitary lung disease - Thrombocytopenia - cirrhotic appearing liver on CT - Hepatitis C Ab (+)/ PCR (-) - Poor prognosis Recommendations - follow symptoms and exam - monitor LFT - avoid hepatotoxic meds - BID PPI - monitor CBC - abx per ID - d/c planning Subjective Allergies: Coded Allergies: IODINE AND IODIDE CONTAINING PRODUC (Verified Allergy, Mild, itching and pruritis, 06/25/17) Uncoded Allergies: CONTRAST/DYE (Allergy, Intermediate, PRURITIS AND ITCHING, 06/25/17) Subjective Feels OK tolerating PO no abdominal pain for discharge today Objective Last 24 Hour Vital Signs Date Time Temp Pulse Resp B/P (MAP) Pulse Ox O2 Delivery O2 Flow Rate FiO2 08/05/17 12:00 97.8 64 19 148/94 95 97.8 08/05/17 10:34 98.2 08/05/17 08:28 69 145/95 08/05/17 08:28 145/95 08/05/17 08:00 98.2 69 20 145/95 95 98.2 08/05/17 05:58 98.2 08/05/17 05:56 73 150/87 08/05/17 04:00 98.2 73 20 150/87 95 98.2 08/05/17 01:15 97.6 71 24 153/86 95 Nasal Cannula 3.5 28 97.6 08/05/17 00:54 97.6 71 24 153/86 Nasal Cannula 3.5 97.6 08/05/17 00:53 71 153/86 08/05/17 00:53 153/86 08/05/17 00:30 Nasal Cannula 3.5 08/05/17 00:00 97.2 70 22 160/92 95 97.2 08/04/17 22:31 98.0 08/04/17 22:00 97.0 73 24 152/89 Nasal Cannula 3.5 97.0 08/04/17 22:00 75 131/88 08/04/17 21:32 95 Nasal Cannula 2.0 28 08/04/17 21:32 Nasal Cannula 2.0 28 08/04/17 21:04 98.0 Intake and Output 08/04/17 08/05/17 19:00 07:00 Intake Total 600 ml 420 ml Output Total 2700 ml Balance 600 ml -2280 ml Intake Oral 600 ml 420 ml Hemodialysis UF 2700 ml # Voids 1 Laboratory Tests 08/05/17 00:40: Random Amikacin Level 10.1 Height (Feet): 5 Height (Inches): 5.00 Weight (Pounds): 198 Objective WDWN AA Man NCAT supple CTA RRR Soft mildly distended, (+) trunk edema (++) leg edema PERCY JOYNER August 05, 2017 20:17
--- NOTE | 2017-08-05 23:37 | Internal Med Progress Note ---
Subjective Physician Name Chaitanya Weinstein Attending Physician Chaitanya Weinstein MD Allergies: Coded Allergies: IODINE AND IODIDE CONTAINING PRODUC (Verified Allergy, Mild, itching and pruritis, 06/25/17) Uncoded Allergies: CONTRAST/DYE (Allergy, Intermediate, PRURITIS AND ITCHING, 06/25/17) Subjective awake,alert, responsive , NAD. Objective Last Vital Signs Date Time Temp Pulse Resp B/P (MAP) Pulse Ox O2 Delivery O2 Flow Rate FiO2 08/05/17 12:00 97.8 64 19 148/94 95 97.8 08/05/17 01:15 Nasal Cannula 3.5 28 Laboratory Tests Test 08/05/17 00:40 Random Amikacin Level 10.1 MG/L Intake and Output 08/04/17 08/05/17 19:00 07:00 Intake Total 600 ml 420 ml Output Total 2700 ml Balance 600 ml -2280 ml Intake Oral 600 ml 420 ml Hemodialysis UF 2700 ml # Voids 1 Objective General: No acute distress, awake and alert HEENT: NCAT, sclera anicteric, PERRL, EOMI. Neck: Supple, no significant jugular venous distention, Lungs: Fair inspiratory effort, no Wheeze or Rales. Heart: Regular rate and rhythm, normal S1/S2, no murmur Abdomen: soft, nontender, nondistended. Normoactive bowel sounds. Obesity Extremities: No Cyanosis , clubbing, or edema. Left UE AVF. Neuro: A&O x 3, Able to move all extremities Skin: warm, no rashes Assessment/Plan Assessment/Plan Right upper lobe cavitary mass Necrotizing PNA with cavitating lesion RUL r/o TB Acute hypoxemic RF requiring BiPAP -resolved Pleuritic chest pain likely due to necrotizing PNA . Elevated troponin Systolic CHF ( recent negative reversible perfusion defect.) cardiomyopathy pulmonary edema Asthma. End-stage renal disease, on hemodialysis. Hypertensive urgency . Anemia of chronic disease. History of intracardiac defibrillator placement. Prior history of cerebrovascular accident. ESRD on HD thrombocytopenia transaminitis hepatitis C liver cirrhosis cholelithiasis Plan: Monitor Labs and culture Full code F/U with ID recommendations - Cont oral Clindamycin ( till resolution/ stabilization of abscess) - Continue Ethambutol and Levaquin, Amikacin ( empiric TB AB Rx d# 46 TB control they want to cont TB Meds regardless of AFB Cultures Neg x 3 (called : 07/22 ) ) -At this point patient is cleared for discharge to SNF- patient with neg AFB cultures x3, more than 13 days TB treatment, off airborne isolation DC planning, for today On Chaitanya Dunn MD August 05, 2017 23:37
--- NOTE | 2017-08-06 22:46 | General Progress Note ---
Assessment/Plan Assessment/Plan #. Left leg dvt --> acute onset, will need to review final duplex results --> on apixaban daily x 3 months, low h/h will need to monitor closely --> okay to change to different anticoagulant if renal clearance an issue --> If h/h downtrends below 7.5, consider ivc filter placement. --> Hemoglobin currently >7.5, but downtrended from yesterday. Continue to monitor closely. --> Improved #. Anemia secondary to chronic disease. --> Hemoglobin levels have been stable. No blood transfusion required at this time. --> S/P abd CAT scan revealing evidence of hepatic cirrhosis. --> Continue to closely monitor and trend cbc daily. --> Anemia workup completed and reviewed. Iron 42, TIBC 180, Ferritin 593, B12 876. --> Ferritin is >500, hgb goal is >7 --> Anemia w/u has been reviewed --> ++Occult blood. Consider GI Services and Recs. #. Thrombocytopenia. --> Hepatitis C ab ++, PCR - --> Monitor platelet level. Transfuse if platelet count <20k --> Levels improved. Monitor and trend cbc daily. # Hepatosplenomegaly. Ascites. There is also evidence of generalized anasarca, with pleural fluid and generalized subcutaneous edema --> Abd pain improved on pain management --> Refer to surgery note. #. Anemia of kidney disease --> HD as needed per nephrology team --> Monitor closely. --> Does not require iron at this time #. Generalized body ache related to fluid overload. #. End-stage renal disease, on hemodialysis as needed --> On hemodialysis #. Respiratory failure due to CHF and pneumonia. --> Providencia and pseudomonas. --> On vancomycin and ethambutol per ID. --> Chest pain improved at this time, on pain management. Chest xray on 07/28 showing that cavitary lesion improving. #. Shortness of breath. Due to underlying pneumonia. #. Atrial flutter with rapid ventricular response. On metoprolol and diltiazem. #. Conjunctivitis. Begin tobramycin. On anti TB treatment. On Amikacin and ethambutol. Continue telemetry. Subjective Date patient seen: August 05, 2017 Constitutional: Denies: no symptoms, chills, diaphoresis, fever, malaise, weakness, other HEENT: Denies: no symptoms, eye pain, blurred vision, tearing, double vision, ear pain, ear discharge, nose pain, nose congestion, throat pain, throat swelling, mouth pain, mouth swelling, other Cardiovascular: Denies: no symptoms, chest pain, edema, irregular heart rate, lightheadedness, palpitations, syncope, other Respiratory: Denies: no symptoms, cough, orthopnea, shortness of breath, SOB with excertion, SOB at rest, sputum, stridor, wheezing, other Gastrointestinal/Abdominal: Denies: no symptoms, abdomen distended, abdominal pain, black stools, tarry stools, blood in stool, constipated, diarrhea, difficulty swallowing, nausea, poor appetite, poor fluid intake, rectal bleeding , vomiting, other Genitourinary: Denies: no symptoms, burning, discharge, frequency, flank pain, hematuria, incontinence, pain, urgency, other Neurologic/Psychiatric: Denies: no symptoms, anxiety, depressed, emotional problems, headache, numbness, paresthesia, pre-existing deficit, seizure, tingling, tremors, weakness, other Hematologic/Lymphatic: Reports: anemia Allergies: Coded Allergies: IODINE AND IODIDE CONTAINING PRODUC (Verified Allergy, Mild, itching and pruritis, 06/25/17) Uncoded Allergies: CONTRAST/DYE (Allergy, Intermediate, PRURITIS AND ITCHING, 06/25/17) Subjective Pt feeling better. No acute events. Pending dc today. Objective Intake and Output 08/05/17 08/06/17 19:00 07:00 Intake Total 360 ml Output Total 0 ml Balance 360 ml Intake Oral 360 ml Output Urine Total 0 ml Height (Feet): 5 Height (Inches): 5.00 Weight (Pounds): 198 General Appearance: no apparent distress Cardiovascular: normal peripheral pulses, normal rate Respiratory/Chest: decreased breath sounds Abdomen: non tender, soft Irving Parker MD August 06, 2017 22:45
--- NOTE | 2017-08-07 14:12 | Discharge Summary ---
Discharge Summary Discharge Summary Discharge Summary DATE OF ADMISSION: 06/03/2017 DATE OF DISCHARGE: 08/05/2017 CONSULTANTS: Dr. Christine Parham BRIEF HOSPITAL COURSE: Patient is a 57-year-old -[place] male, who presented with chief complaint of shortness of breath and blood-tinged sputum. He was previously admitted to [facility] on 05/23/2017 to 05/28/2017 for evaluation of chest pain. He presented back to the hospital as he experienced cough, with subjective fever and chills. He stated he coughed up blood-tinged sputum. He has medical history significant for congestive heart failure, end-stage renal disease on hemodialysis every Friday, and Friday. Last hemodialysis was 05/31/2017, history of hypertension, COPD, and a prior right thoracotomy for unknown reason. On evaluation at ED, blood pressure was elevated 204/101. Temperature was 100.3. Heart rate was 109, RR 26. He was placed on BiPAP immediately. Chest x -ray revealed right upper lobe pneumonia. Blood work showed elevated BNP, CRP was 4.6. Troponin was slightly elevated. He was admitted for evaluation of right upper lobe pneumonia with pleuritic chest pain. He was started empirically on Zosyn. He was given inpatient hemodialysis. He had echocardiogram done that showed ejection fraction of 45-50%, moderate left ventricular hypertrophy, moderate diastolic relaxation. Antihypertensives were titrated. He had a recent myocardial stress test that was negative. Troponin was slightly elevated related to ESRD. Patient had chest x-ray that showed cavitation. He was followed by infectious disease specialist. He was given Zosyn, vancomycin and azithromycin. He was placed on airborne isolation and was worked up for tuberculosis. Influenza screen was negative. There was a drop of hemoglobin, no active signs of bleeding. He was given blood transfusions. Stool OB positive. He was placed on acid blockade. Defer EGD/colonoscopy at this time. Anemia workup showed anemia secondary to chronic disease. Ferritin 593, iron 42, TIBC 180. He had a CAT scan on 06/05/2017 that showed 7.8 x 5.3 x 6.6 cm dense opacity in the posterior inferior right upper lobe with central cavitation. Repeat chest CT on 06/15/2017 showed a slightly smaller but mostly unchanged cavitary lesion. He was given empiric ethambutol, amikacin and Levaquin. He was on Flagyl in addition to Levaquin to provide an aerobic coverage. He was given amphotericin B for possible aspergillosis. Repeat chest CT on 06/25/2017 showed further reduction in size of previously demonstrated thick-walled right upper lobe cavitary mass. He was given Rocephin for possible superimposed Providencia pneumonia. He was also given rifampin. Voriconazole was discontinued due to drug to drug interaction with rifampin, he was given micafungin. He had transaminitis which improved after stopping rifampin. Hepatitis panel done showed no active hepatitis C as viral load not detected. HIV was negative. Hepatitis panel B negative, hepatitis C antibody positive, viral load not detected. He also complained of abdominal pain. Ultrasound showed thickening of gallbladder and blood work with elevated LFTs. Surgery was called to evaluate for possible cholecystitis. CT of the abdomen and pelvis showed evidence of hepatic cirrhosis. Splenomegaly. Ascites. Cholelithiasis. Possible diverticulitis and nonvisualized appendix, there was a left renal cyst. No surgical intervention needed. On 07/10/2017 he underwent flexible fiberoptic bronchoscopy with bronchial alveolar lavage on the right upper lobe by Dr. Richardson. He was eventually tapered off BiPAP and was on nasal cannula. Patient was tachycardic and went into aflutter/fib. He was also placed on Eliquis for stroke prevention. Venous duplex of lower extremity was negative. He was given metoprolol. He was eventually started on Cardizem. ICD was interrogated and no shock function. He underwent EGD with colonoscopy on 07/31/[address] Goodwin. Findings showed portal hypertensive gastropathy, otherwise normal upper endoscopy and lower colonoscopy. T spot was negative, AFB negative. MTB PCR 2 negative. Cryptococcus antigen, histoplasma antibody, Blastomyces antibody negative. Bilateral venous duplex scan showed acute DVT near the left knee area. He was given apixaban. He was also given blood transfusions. Anemia was secondary to chronic disease. He had thrombocytopenia possibly due to hepatitis C. Patient was cleared for discharge to snf, he received more than 13 days of TB treatment and was taken off airborne isolation. TB control wants him to continue TB meds. Patient was eventually discharged to SNF. FINAL DIAGNOSES: Right upper lobe cavitary mass Necrotizing pneumonia with cavitating lesion on the right upper lobe rule out TB Acute hypoxemic respiratory failure requiring BiPAP resolved Pleuritic chest pain likely due to necrotizing pneumonia Elevated troponin likely due to end-stage renal disease Acute left leg DVT Acute on chronic systolic congestive heart failure Cardiomyopathy Pulmonary edema Asthma End-stage renal disease on hemodialysis Hypertensive urgency Anemia of chronic kidney disease History of intracardiac defibrillator placement Prior history of cerebrovascular accident End-stage renal disease on hemodialysis Thrombocytopenia Transaminitis Hepatitis C Liver cirrhosis Cholelithiasis Drop in hemoglobin requiring blood transfusion COPD Stool OB positive due to portal hypertension gastropathy Periodic nausea and vomiting with abnormal gallbladder on ultrasound possibly due to biliary colic Rapid A. fib/atrial tachycardia Hyperkalemia Pulmonary edema DISPOSITION: Patient was discharged to [facility] for dialysis every TThS at [facility]. DISCHARGE MEDICATIONS: Refer to Discharge Medication List. I have been assigned to dictate discharge summary on this account, and I was not involved in the patient's management. Katya Snowden NP August 07, 2017 14:12
== END 2017-08-05 12:54 | DRG 137 ==
LOC: EDBD 12:46 → EMR 13:15 → 2W 14:02 → EDBEDREQ 14:49 → 2W 15:06 → 2E 06-14 19:07 → 4W 06-16 16:16 → 2E 07-06 03:09 → 4E 07-15 18:35 → SDSOVERFLO 07-16 16:11 → 4E 07-16 16:12
PROC: 5A1D70Z Performance of Urinary Filtration, Intermittent, Less than 6 Hours Per Day (ICD-10-PCS; 2017-06-03)
PROC: 05HM33Z Insertion of Infusion Device into Right Internal Jugular Vein, Percutaneous Approach (ICD-10-PCS; principal; 2017-06-05)
PROC: B543ZZA Ultrasonography of Right Jugular Veins, Guidance (ICD-10-PCS; 2017-06-05)
PROC: 30233N1 Transfusion of Nonautologous Red Blood Cells into Peripheral Vein, Percutaneous Approach (ICD-10-PCS; 2017-06-05)
PROC: 0B9C8ZX Drainage of Right Upper Lung Lobe, Via Natural or Artificial Opening Endoscopic, Diagnostic (ICD-10-PCS; 2017-07-10)
PROC: 0DJ08ZZ Inspection of Upper Intestinal Tract, Via Natural or Artificial Opening Endoscopic (ICD-10-PCS; 2017-07-31)
PROC: 0DJD8ZZ Inspection of Lower Intestinal Tract, Via Natural or Artificial Opening Endoscopic (ICD-10-PCS; 2017-07-31)
DX: J85.0 Gangrene and necrosis of lung (principal); J96.01 Acute respiratory failure with hypoxia; I13.2 Hypertensive heart and chronic kidney disease with heart failure and with stage 5 chronic kidney disease, or end stage renal disease; J15.1 Pneumonia due to Pseudomonas; J15.8 Pneumonia due to other specified bacteria; N18.6 End stage renal disease; I42.9 Cardiomyopathy, unspecified; J90 Pleural effusion, not elsewhere classified; A15.8 Other respiratory tuberculosis; R18.8 Other ascites; R04.2 Hemoptysis; I50.20 Unspecified systolic (congestive) heart failure; Z99.2 Dependence on renal dialysis; R07.81 Pleurodynia; D63.1 Anemia in chronic kidney disease; I16.0 Hypertensive urgency; K74.60 Unspecified cirrhosis of liver; B19.20 Unspecified viral hepatitis C without hepatic coma; J44.0 Chronic obstructive pulmonary disease with (acute) lower respiratory infection; E87.5 Hyperkalemia; Z95.810 Presence of automatic (implantable) cardiac defibrillator; Z86.73 Personal history of transient ischemic attack (TIA), and cerebral infarction without residual deficits; R00.0 Tachycardia, unspecified; D69.6 Thrombocytopenia, unspecified; E11.9 Type 2 diabetes mellitus without complications; R74.0 Nonspecific elevation of levels of transaminase and lactic acid dehydrogenase [LDH]; I48.92 Unspecified atrial flutter; K80.20 Calculus of gallbladder without cholecystitis without obstruction; R16.2 Hepatomegaly with splenomegaly, not elsewhere classified; I82.402 Acute embolism and thrombosis of unspecified deep veins of left lower extremity; K76.6 Portal hypertension; K31.89 Other diseases of stomach and duodenum; E87.70 Fluid overload, unspecified; R19.7 Diarrhea, unspecified; H10.9 Unspecified conjunctivitis; F41.9 Anxiety disorder, unspecified; G40.909 Epilepsy, unspecified, not intractable, without status epilepticus; J98.11 Atelectasis
CPT/HCPCS: 36415; 36569; 36600; 71045; 71250; 74018; 74176; 74247; 76700; 76770; 80048; 80053; 80061; 80076; 80150; 80202; 82105; 82140; 82248; 82270; 82378; 82550; 82607; 82728; 82747; 82803; 82962; 82977; 83036; 83540; 83550; 83735; 83880; 84100; 84443; 84484; 84550; 85007; 85025; 85610; 85651; 85730; 86140; 86171; 86580; 86606; 86612; 86635; 86703; 86705; 86709; 86710; 86803; 86850; 86900; 86901; 86920; 87040; 87070; 87075; 87081; 87116; 87181; 87205; 87340; 87449; 87522; 87556; 89051; 93005; 93306; 93970; 94003; 94150; 94640; 94660; 94664; 94760; 99285; J2250; J2405; J2710; J7620

== ENCOUNTER 2017-08-08 20:19 | Emergency (ER) | payer MEDICAID ==
[~2017-08-08] VITALS: Ht 175.3 cm; Wt 113.4 kg
[~2017-08-08 20:19] MED LIST changes: +AMIKACIN S1000 MG/4 IJ; +CARDIZEM120 MG PO; +CLEOCIN HCL150 MG PO; +ELIQUIS2.5 MG PO; +HYDROMORPHONE HC2 M1 PO; +LEVAQUIN750 MG ORAL; +METOPROLOL TAR100 M1 ORAL; +MYAMBUTOL400 MG ORAL; +PRINIVIL20 MG ORAL; +PROTONIX40 MG ORAL; +RENVELA800 MG ORAL; +RESTORIL15 MG ORAL
[2017-08-08] MEDS ORDERED: BUPROPION HCL75 MG PO (20:55)
[2017-08-08] MEDS ORDERED: AMLODIPINE BESY10 MG ORAL (20:55)
[2017-08-08] MEDS ORDERED: ABILIFY10 MG ORAL (20:55)
[2017-08-08] MEDS ORDERED: ASPIR 8181 MG ORAL (20:55)
[2017-08-08] MEDS ORDERED: CARVEDILOL25 MG ORAL (20:55)
[2017-08-08] MEDS ORDERED: ATORVASTATIN CA80 MG ORAL (20:55)
[2017-08-08] MEDS ORDERED: LORATADINE10 M1 PO (21:04)
[2017-08-08] MEDS ORDERED: PROAIR HFA8.5 GM INH (21:04)
[2017-08-08] MEDS ORDERED: MEDROL4 MG ORAL (21:04)
[2017-08-08] MEDS ORDERED: ARICEPT23 MG ORAL (21:04)
[2017-08-08] MEDS ORDERED: ISOSORBIDE DINI30 MG ORAL (21:04)
[2017-08-08] MEDS ORDERED: MULTIVITAMINS1 EAC2 ORAL (21:04)
[2017-08-08] MEDS ORDERED: ALBUTEROL2.5 MG/3 M INH (21:04)
[2017-08-08] MEDS ORDERED: FOLIC ACID1 MG ORAL (21:04)
[2017-08-08] MEDS ORDERED: FERROUS SULFAT325 MG ORAL (21:04)
[2017-08-08] MEDS ORDERED: ADVAIR 250-501 EACH INH (21:04)
[2017-08-08 21:11] LABS: HEMATOCRIT 25.8 % (42.0-52.0); MEAN CORPUSCULAR VOLUME 97 FL (80-99); PLATELET COUNT 89 K/UL (150-450); RED BLOOD COUNT 2.67 M/UL (4.70-6.10); RED CELL DISTRIBUTION WIDTH 12.8 % (11.6-14.8); WHITE BLOOD COUNT 3.6 K/UL (4.8-10.8)
[2017-08-08] MEDS ORDERED: ZOCOR20 M1 ORAL (21:15)
[2017-08-08] MEDS ORDERED: NITROSTAT0.4 M1 SL (21:15)
[2017-08-08] MEDS ORDERED: RESTORIL15 MG ORAL (21:15)
[2017-08-08] MEDS ORDERED: RENAGEL400 MG ORAL (21:15)
[2017-08-08] MEDS ORDERED: SEROQUEL100 MG ORAL (21:15)
[2017-08-08] MEDS ORDERED: SPIRIVA18 MCG INH (21:15)
[2017-08-08] MEDS ORDERED: DIOVAN160 MG ORAL (21:15)
[2017-08-08] MEDS ORDERED: OMEPRAZOLE20 M2 ORAL (21:15)
[2017-08-08] MEDS ORDERED: MIRALAX17 G2 ORAL (21:15)
[2017-08-08] MEDS ORDERED: RENVELA0.8 GM ORAL (21:15)
[2017-08-08] MEDS ORDERED: PRINIVIL20 MG ORAL (21:15)
[2017-08-08] MEDS ORDERED: METOPROLOL SUC100 MG ORAL (21:15)
[2017-08-08 21:21] LABS: ANION GAP 11 mmol/L (5-15); BLOOD UREA NITROGEN 44 mg/dL (7-18); CALCIUM 8.9 MG/DL (8.5-10.1); CARBON DIOXIDE 32 MMOL/L (21-32); CHLORIDE 99 MMOL/L (98-107); CREATININE 9.8 MG/DL (0.55-1.30); POTASSIUM 5.1 MMOL/L (3.5-5.1); SODIUM 141 MMOL/L (136-145)
[2017-08-08 21:29] LABS: INR 1.3 (0.9-1.1)
[2017-08-08 21:37] LABS: ALANINE AMINOTRANSFERASE 10 U/L (12-78); ALBUMIN 2.9 G/DL (3.4-5.0); ALBUMIN/GLOBULIN RATIO 0.6 (1.0-2.7); ALKALINE PHOSPHATASE 156 U/L (46-116); ASPARTATE AMINO TRANSFERASE 21 U/L (15-37); BILIRUBIN,TOTAL 0.8 MG/DL (0.2-1.0); CREATINE KINASE 41 U/L (26-308)
--- NOTE | 2017-08-08 21:47 | Emergency Room Report ---
History of Present Illness General Chief Complaint: Abnormal Labs Source: Medical Record, EMS Present Illness HPI Patient had dialysis yesterday routine blood work revealed a hemoglobin of 7.3 This was reported to the patient's [facility] physician and patient transferred to the hospital here, the patient himself is a poor historian History of present is somewhat limited given the patient's ability to provide history Otherwise there was no reports of any other complaints no reports of vomiting or diarrhea patient has AV shunt in left upper arm and again was dialyzed yesterday There was no reports of any blood in the stool or vomiting of blood Allergies: Coded Allergies: IODINE AND IODIDE CONTAINING PRODUC (Verified Allergy, Mild, itching and pruritis, 08/08/17) Uncoded Allergies: CONTRAST/DYE (Allergy, Intermediate, PRURITIS AND ITCHING, 06/25/17) Patient History Past Medical History: see triage record Pertinent Family History: none Reviewed Nursing Documentation: PMH: Agreed; PSxH: Agreed Nursing Documentation-PMH Past Medical History: No Stated History Hx Cardiac Problems: Yes - anemia, CHF, ACS, elevated troponin, atrial flutter with RVR, Afib Hx Hypertension: Yes Hx Pacemaker: Yes Hx Asthma: Yes Hx COPD: Yes - purulent bronchitis Hx Diabetes: Yes Hx Cancer: No Hx Gastrointestinal Problems: No - kidney failure on dialysis Hx Dialysis: Yes - Left Upper Arm Shunt. T, TH, SAT Hx Neurological Problems: No Hx Cerebrovascular Accident: Yes Hx Seizures: Yes Review of Systems All Other Systems: negative except mentioned in HPI Physical Exam Vital Signs Date Time Temp Pulse Resp B/P (MAP) Pulse Ox O2 Delivery O2 Flow Rate FiO2 08/08/17 20:20 98.4 66 16 109/68 98 Nasal Cannula 3.0 98.4 Sp02 EP Interpretation: reviewed, normal General Appearance: no apparent distress Head: normocephalic, atraumatic Eyes: bilateral eye PERRL ENT: normal pharynx, no angioedema Neck: supple Respiratory: lungs clear Cardiovascular #1: regular rate, rhythm, no edema Gastrointestinal: non tender, soft Musculoskeletal: normal inspection Neurologic: responsive, sensory intact Skin: normal color, other - AV shunt left upper arm Lymphatic: no adenopathy Medical Decision Making Diagnostic Impression: Primary Impression: ESRD (end stage renal disease) on dialysis Additional Impression: Anemia ER Course Given the patient history and presentation repeat blood work was initiated Patient's hemoglobin is 8.0 Review of records reveals the patient was just discharged from the hospital recently With a similar hemoglobin Patient appears to have chronic kidney disease with anemia as well Remains hemodynamically stable at this time will have continued outpatient follow-up Labs Test 08/08/17 20:39 White Blood Count 3.6 K/UL (4.8-10.8) Red Blood Count 2.67 M/UL (4.70-6.10) Hemoglobin 8.0 G/DL (14.2-18.0) Hematocrit 25.8 % (42.0-52.0) Mean Corpuscular Volume 97 FL (80-99) Mean Corpuscular Hemoglobin 30.0 PG (27.0-31.0) Mean Corpuscular Hemoglobin Concent 31.0 G/DL (32.0-36.0) Red Cell Distribution Width 12.8 % (11.6-14.8) Platelet Count 89 K/UL (150-450) Mean Platelet Volume 7.1 FL (6.5-10.1) Neutrophils (%) (Auto) % (45.0-75.0) Lymphocytes (%) (Auto) % (20.0-45.0) Monocytes (%) (Auto) % (1.0-10.0) Eosinophils (%) (Auto) % (0.0-3.0) Basophils (%) (Auto) % (0.0-2.0) Prothrombin Time 13.5 SEC (9.30-11.50) Prothromb Time International Ratio 1.3 (0.9-1.1) Sodium Level 141 MMOL/L (136-145) Potassium Level 5.1 MMOL/L (3.5-5.1) Chloride Level 99 MMOL/L (98-107) Carbon Dioxide Level 32 MMOL/L (21-32) Anion Gap 11 mmol/L (5-15) Blood Urea Nitrogen 44 mg/dL (7-18) Creatinine 9.8 MG/DL (0.55-1.30) Estimat Glomerular Filtration Rate 6.7 mL/min (>60) Glucose Level 87 MG/DL (74-106) Calcium Level 8.9 MG/DL (8.5-10.1) Total Bilirubin 0.8 MG/DL (0.2-1.0) Aspartate Amino Transf (AST/SGOT) 21 U/L (15-37) Alanine Aminotransferase (ALT/SGPT) 10 U/L (12-78) Alkaline Phosphatase 156 U/L (46-116) Total Creatine Kinase 41 U/L (26-308) Creatine Kinase MB 1.0 NG/ML (0.0-3.6) Creatine Kinase MB Relative Index 2.4 Troponin I 0.030 ng/mL (0.000-0.056) Total Protein 7.9 G/DL (6.4-8.2) Albumin 2.9 G/DL (3.4-5.0) Globulin 5.0 g/dL Albumin/Globulin Ratio 0.6 (1.0-2.7) Rhythm Strip Diag. Results EP Interpretation: yes Rate: 67 Rhythm: NSR, no PVC's, no ectopy Chest X-Ray Diagnostic Results Chest X-Ray Diagnostic Results : Chest X-Ray Ordered: Yes # of Views/Limited/Complete: 1 View Indication: Chest Pain EP Interpretation: Yes Interpretation: no consolidation, no pneumothorax, other - Similar presentation to previous continued bilateral pulmonary markings, Impression: Other - Interstitial opacifications Electronically Signed by: Conrad Devine DO Last Vital Signs Date Time Temp Pulse Resp B/P (MAP) Pulse Ox O2 Delivery O2 Flow Rate FiO2 08/08/17 20:20 98.4 66 16 109/68 98 Nasal Cannula 3.0 98.4 Status: unchanged Disposition: XFER SNF Condition: Improved Referrals: NON PHYSICIAN (PCP) Additional Instructions: Patient requiring close outpatient follow-up with nursing facility [facility] and will return with any changes or concerns Conrad Devine DO August 08, 2017 21:47
[2017-08-08 22:27] VITALS: BP 118/72
[2017-08-08 22:29] VITALS: BP 118/72
--- NOTE | 2017-08-10 11:51 | Cardiology Report ---
APPROVED REPORT EKG Measurement Heart [id number] Normal sinus rhythm Rightward axis Nonspecific T wave abnormality Prolonged QT Abnormal ECG
== END 2017-08-08 22:37 ==
LOC: EDBD 20:19 → EDUNIT# 20:19 → EMR 21:24
DX: D64.9 Anemia, unspecified (principal); I13.2 Hypertensive heart and chronic kidney disease with heart failure and with stage 5 chronic kidney disease, or end stage renal disease; I50.9 Heart failure, unspecified; N18.6 End stage renal disease; Z99.2 Dependence on renal dialysis; E11.9 Type 2 diabetes mellitus without complications; J44.9 Chronic obstructive pulmonary disease, unspecified; Z91.041 Radiographic dye allergy status; Z95.0 Presence of cardiac pacemaker; Z86.73 Personal history of transient ischemic attack (TIA), and cerebral infarction without residual deficits
CPT/HCPCS: 36415; 71045; 80053; 82550; 82553; 84484; 85007; 85025; 85610; 86850; 86900; 86901; 93005; 99284